=== PATIENT | female | born 2000 | race Caucasian/White ===

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

== ENCOUNTER 2022-01-30 11:46 | Emergency (ER) | payer OTHER ==
--- OUTSIDE RECORDS SUMMARY | 2022-01-30 11:54 | XMS REPORT | Continuity of Care Document ---
:2000 Author Organization [facility] t Address [address] [place] [address] Care Team Providers Name Role Phone MAINE ADAMS Primary Care Physician Unavailable EDWIN CHAPARRO Attending Clinician Unavailable TUSHAR LAN Attending Clinician Unavailable Antonette Solano CNM Attending Clinician Ultrasound, Tk-Mfchelo Attending Clinician Unavailable David Cooper DO Attending Clinician SARA SNYDER Attending Clinician Unavailable SARA SNYDER Attending Clinician Unavailable ANTONETTE SOLANO Attending Clinician Unavailable Provider, Margaretchniya Temp Attending Clinician Unavailable Niki Villa Attending Clinician NIKI RALPH Attending Clinician Unavailable Doctor Unassigned, [place] Attending Clinician Unavailable Tushar Villarreal Attending Clinician JAM SAUNDERS Attending Clinician Unavailable CLINTON CRUMP Attending Clinician Unavailable Ernesto Valente Attending Clinician ERNESTO PEACOCK Attending Clinician Unavailable Visit, [facility] Nurse Attending Clinician Unavailable Jamshid QUINONEZ, Rosio Attending Clinician Maxim ANDRES, Marizol [place] Attending Clinician Dylan Prieto MD Attending Clinician Maria III, AUDIOVISUAL PRODUCTION SPECIALIST, R Attending Clinician Jr ANDRES, Hetal Mario [facility]ending [facility] Attending Clinician Unavailable Jeffery Dumont DO Attending Clinician Zoltan ANDRES, Radha Attending Clinician Antonio Travis MD Attending Clinician Joselyn CASIE, Selam Attending Clinician SELAM ALVES Attending Clinician Unavailable HETAL NORRIS Admitting Clinician Unavailable SARA SNYDER Admitting Clinician Unavailable Maxim ANDRES, Marizol [place] Admitting Clinician Hetal Norris MD Admitting Clinician Payers Payer Name Policy Type Policy Number Effective Date Expiration Date Daniel del angel [facility] [id number] 2019 00:00:00 Problems Condition Condition Condition Status Onset Resolution Last Treating Co mments Source Name Details Category Date Date Treatment Clinician Date History of History of Disease Active 2021-02 U nivers pre-eclamp pre-eclamp 0-27 it [place] 00:[place]: [place] prior prior 00 Medical , , Br anch currently currently Disease Active 2021-02 Uni vers related related 0-27 ity of nausea, nausea, 00:00: [place] antepartum antepartum 00 Nh dical Branch Declines Declines Disease Active 2021-02 Unive rs flu flu 0-27 ity of vaccine vaccine 00:00: [place] 00 Medical Branch History of History of Disease Active 2021-02 U nivers anxiety anxiety 0-27 ity of and and 00:00: [place] depression depression 00 Nh dical Branch Missed Missed Disease Active 2021-02 Univers menses menses 0-13 ity of 00:00: [place] 00 Medical Branch History of History of Disease Active 2021-02 U nivers 0-13 ity of delivery, delivery, 00:00: [place] currently currently 00 Medi lottie Branch Other Other Disease Active Univers general general 8 [place] counseling [place] advice and advice 00 Me dical for for Branch contracept contracept chris chris management management Elevated Elevated Disease Active Unive rs blood blood 09-28 ity of pressure pressure 00:00: [place] reading reading 00 Medical without without Branch diagnosis diagnosis of of hypertensi hypertensi on on Encounter Encounter Disease Active 2020-02 Uni vers for for - ity of surveillan surve[place]an [place] ce of 00 Medical contracept contracept Br anch chris pills chris pills Disease Active Uni vers with with 4-13 ity of inconclusi inconclusi [place] ve ve 00 Medica l viability, viability, Br anch single or single or unspecifie unspecifie d fetus d fetus Asthma Asthma Disease Active 2019-02 Univers during during 0-29 ity of 00:00: [place] taylor 00 Medical Branch Allergies, Adverse Reactions, Alerts Allergy Allergy Status Severity Reaction(s) Onset Inactive Treating Comm ents Source Name Type Date Date Clinician Codeine Drug Active Cough 2019-02 Univers Allergy 0- ity of 00:00: [place] 00 Medical Branch CODEINE DRUG Active COUGH 2019-02 Univers INGREDI 0- ity of 00:00: [place] 00 Medical Branch Predniso Propensi Active Rash Univer s lone ty to 4-07 ity of adverse 00:00: [place] reaction 00 Medical s Branch Penicill Propensi Active Rash Univer s ins ty to 4-07 ity of adverse 00:00: [place] reaction 00 Medical s Branch PENICILL Drug Active Rash Univers INS Class 4-07 ity of 00:00: [place] 00 Medical Branch PREDNISO DRUG Active Rash Univers LONE INGREDI 4-07 ity of 00:00: [place] 00 Medical Branch Penicill Propensi Active Rash Univer s ins ty to 4-07 ity of adverse 00:00: [place] reaction 00 Medical s Branch Social History Social Habit Start Date Stop Date Quantity Comments Source ASSERTION 2021-11-25 University of 00:00:00 [place] [facility] History SDOH University o f Alcohol Std [place] [facility] Drinks Branch History SDOH University o f Alcohol Binge [place] [facility] History SDOH University o f Alcohol Comment [place] [facility] Exposure to 2021-12-13 2021-12-23 Not sure [facility] SARS-CoV-2 00:00:00 09:29:00 [facility] (event) Branch Alcohol intake 2021-12-23 2021-12-23 Ex-drinker [facility] 00:00:00 00:00:00 (finding) [place] [facility] Tobacco use and 2021-09-28 2021-09-28 Smokeless tobacco Un iversity of exposure 00:00:00 00:00:00 non-user [place] [facility] History SDOH 2018-12-20 2018-12-20 1 University o f Alcohol Frequency 00:00:00 00:00:00 [facility] edical [place] Sex Assigned At [birth year] Universit y of 00:00:00 00:00:00 [facility] Smoking Status Start Date Stop Date Source Never smoked tobacco [facility] Medications Ordered Filled Start Stop Current Ordering Indication Dosage Frequency Signature Comments Components Source Medication Medication Date Date Medication? Clinician (SIG) Name Name 2021-02 Yes Take by Univer s 25/iron 0-13 mouth. ity of fum/folic/d 09:26: [place] [id number] Medical (-1 Branch ORAL) 2021-02 Yes Take by Univer s 25/iron 0-13 mouth. ity of fum/folic/d 09:26: [facility] 35 Medical (-1 Branch ORAL) 2021-02 Yes Take by Univer s 25/iron 0-13 mouth. ity of fum/folic/d 09:26: [facility] 35 Medical (-1 Branch ORAL) 2021-02 Yes Take by Univer s 25/iron 0-13 mouth. ity of fum/folic/d 09:26: [facility] 35 Medical (-1 Branch ORAL) 2021-02 Yes Take by Univer s 25/iron 0-13 mouth. ity of fum/folic/d 09:26: [facility] 35 Medical (-1 Branch ORAL) 2021-02 Yes Take by Univer s 25/iron 0-13 mouth. ity of fum/folic/d 09:26: [place] [id number] Medical (-1 Branch ORAL) 2021-02 Yes Take by Univer s 25/iron 0-13 mouth. ity of fum/folic/d 09:26: [place] [id number] Medical (-1 Branch ORAL) 2021-02 Yes Take by Univer s 25/iron 0-13 mouth. ity of fum/folic/d 09:26: [place] [id number] Medical (-1 Branch ORAL) 2021-02 Yes Take by Univer s 25/iron 0-13 mouth. ity of fum/folic/d 09:26: [place] [id number] Medical (-1 Branch ORAL) PROAIR HFA Yes Univers 90 8-30 ity of mcg/actuati 00:00: [place] on inhaler Medical Branch PROAIR HFA Yes Univers 90 8-30 ity of mcg/actuati 00:00: [place] on inhaler Medical Branch PROAIR HFA Yes Univers 90 8-30 ity of mcg/actuati 00:00: [place] on inhaler Medical Branch PROAIR HFA Yes Univers 90 8-30 ity of mcg/actuati 00:00: [place] on inhaler Medical Branch PROAIR HFA Yes Univers 90 8-30 ity of mcg/actuati 00:00: [place] on inhaler Medical Branch PROAIR HFA Yes Univers 90 8-30 ity of mcg/actuati 00:00: [place] on inhaler Medical Branch PROAIR HFA Yes Univers 90 8-30 ity of mcg/actuati 00:00: [place] on inhaler Medical Branch PROAIR HFA Yes Univers 90 8-30 ity of mcg/actuati 00:00: [place] on inhaler 00 Medical Branch PROAIR HFA Yes Univers 90 8-30 ity of mcg/actuati 00:00: [place] on inhaler Medical Branch norgestimat Yes [id number] 1{tbl} Take 1 Univers e-ethinyl 8-16 tablet by ity o f estradioL 00:[place] (TRI-SPRINT 00 the Medical EC) morning. Branch 0.18/0.215/ 0.25 mg-35 mcg (28) tablet norgestimat 2021- No [id number] 1{tbl} Take 1 Univers e-ethinyl 8-16 10-13 tablet by ity of estradioL 00:00: 00:00 mouth in [place] (TRI-SPRINT 00 :00 the Medical EC) morning. Branch 0.18/0.215/ 0.25 mg-35 mcg (28) tablet norgestimat 2020-02 Yes [id number] 1{tbl} Take 1 Univers e-ethinyl 1-22 tablet by ity o f estradioL 00:00: mouth [place] (ORTHO 00 daily. Medical TRI-CYCLEN, Branch 28,) 0.18/0.215/ 0.25 mg-35 mcg (28) tablet norgestimat 2020-02- No [id number] 1{tbl} Take 1 Univers e-ethinyl 1-22 10-13 tablet by ity of estradioL 00:00: 00:00 mouth [place] (ORTHO 00 :00 daily. Medical TRI-CYCLEN, Branch 28,) 0.18/0.215/ 0.25 mg-35 mcg (28) tablet Immunizations Ordered Immunization Filled Immunization Date Status Commen ts Source Name Name TD 2020-06-09 Completed University of 00:00:00 [facility] TDAP 2020-06-09 Completed University of 00:00:00 [facility] TDAP 2020-06-09 Completed University of 00:00:00 [facility] TDAP 2020-06-09 Completed University of 00:00:00 [facility] TDAP 2020-06-09 Completed University of 00:00:00 [facility] TDAP 2020-06-09 Completed University of 00:00:00 [facility] TDAP 2020-06-09 Completed University of 00:00:00 [facility] TDAP 2020-06-09 Completed University of 00:00:00 [facility] TDAP 2020-06-09 Completed University of 00:00:00 [facility] TDAP 2020-06-09 Completed University of 00:00:00 [facility] Influenza Virus 2020-01-21 Completed Universit y of Vaccine Quad .5 mL 00:00:00 [place] [facility] IM 6+ MO Branch Influenza Virus 2020-01-21 Completed Universit y of Vaccine [place] .5 mL 00:00:00 [place] [facility] IM 6+ MO Branch Influenza Virus 2020-01-21 Completed Universit y of Vaccine [place] .5 mL 00:00:00 [place] [facility] IM 6+ MO Branch Influenza Virus 2020-01-21 Completed Universit y of Vaccine [place] .5 mL 00:00:00 [place] [facility] IM 6+ MO Branch Influenza Virus 2020-01-21 Completed Universit y of Vaccine [place] .5 mL 00:00:00 [place] [facility] IM 6+ MO Branch Influenza Virus 2020-01-21 Completed Universit y of Vaccine [place] .5 mL 00:00:00 [place] [facility] IM 6+ MO Branch Influenza Virus 2020-01-21 Completed Universit y of Vaccine [place] .5 mL 00:00:00 [place] [facility] IM 6+ MO Branch Influenza Virus 2020-01-21 Completed Universit y of Vaccine Quad .5 mL 00:00:00 [place] [facility] IM 6+ MO Branch Influenza Virus 2020-01-21 Completed Universit y of Vaccine Quad .5 mL 00:00:00 [place] [facility] 6+ MO Branch Influenza Virus 2020-01-21 Completed Universit y of Vaccine Quad .5 mL 00:00:00 [facility] 6+ MO Branch Meningococcal 2018-10-18 Completed University of Vaccine 00:00:00 [facility] TDAP 2018-10-18 Completed University of 00:00:00 [facility] Meningococcal B, OMV 2018-10-18 Completed Univ ersity of 00:00:00 [facility] Meningococcal 2018-10-18 Completed University of Vaccine 00:00:00 [place] [facility] [place] TDAP 2018-10-18 Completed University of 00:00:00 [facility] Meningococcal B, OMV 2018-10-18 Completed Univ ersity of 00:00:00 [facility] Meningococcal 2018-10-18 Completed University of Vaccine 00:00:00 [place] [facility] TDAP 2018-10-18 Completed University of 00:00:00 [facility] Meningococcal B, OMV 2018-10-18 Completed Univ ersity of 00:00:00 [facility] Meningococcal 2018-10-18 Completed University of Vaccine 00:00:00 [facility] TDAP 2018-10-18 Completed University of 00:00:00 [facility] Meningococcal B, OMV 2018-10-18 Completed Univ ersity of 00:00:00 [facility] Meningococcal 2018-10-18 Completed University of Vaccine 00:00:00 [facility] Branch TDAP 2018-10-18 Completed University of 00:00:00 [facility] Branch Meningococcal B, OMV 2018-10-18 Completed Univ ersity of 00:00:00 [facility] Branch Meningococcal 2018-10-18 Completed University of Vaccine 00:00:00 [facility] Branch TDAP 2018-10-18 Completed University of 00:00:00 [facility] Branch Meningococcal B, OMV 2018-10-18 Completed Univ ersity of 00:00:00 [facility] Meningococcal 2018-10-18 Completed University of Vaccine 00:00:00 [facility] TDAP 2018-10-18 Completed University of 00:00:00 [facility] Meningococcal B, OMV 2018-10-18 Completed Univ ersity of 00:00:00 [facility] Meningococcal 2018-10-18 Completed University of Vaccine 00:00:00 [facility] TDAP 2018-10-18 Completed University of 00:00:00 [facility] Meningococcal B, OMV 2018-10-18 Completed Univ ersity of 00:00:00 [facility] Meningococcal 2018-10-18 Completed University of Vaccine 00:00:00 [facility] TDAP 2018-10-18 Completed University of 00:00:00 [facility] Meningococcal B, OMV 2018-10-18 Completed Univ ersity of 00:00:00 [facility] Meningococcal 2018-10-18 Completed University of Vaccine 00:00:00 [facility] TDAP 2018-10-18 Completed University of 00:00:00 [facility] Meningococcal B, OMV 2018-10-18 Completed Univ ersity of 00:00:00 [facility] DTAP 2006-10-25 Completed University of 00:00:00 [facility] Hepatitis A Adult 2006-10-25 Completed Univers ity of 00:00:00 [facility] Polio (IPV/OPV) 2006-10-25 Completed Universit y of 00:00:00 [facility] DTAP 2006-10-25 Completed University of 00:00:00 [facility] Hepatitis A Adult 2006-10-25 Completed Univers ity of 00:00:00 [facility] Polio (IPV/OPV) 2006-10-25 Completed Universit y of 00:00:00 [place] [facility] DTAP 2006-10-25 Completed University of 00:00:00 [place] [facility] Hepatitis A Adult 2006-10-25 Completed Univers ity of 00:00:00 [place] [facility] Polio (IPV/OPV) 2006-10-25 Completed Universit y of 00:00:00 [place] [facility] DTAP 2006-10-25 Completed University of 00:00:00 [facility] Branch Hepatitis A Adult 2006-10-25 Completed Univers ity of 00:00:00 [place] [facility] Polio (IPV/OPV) 2006-10-25 Completed Universit y of 00:00:00 [place] [facility] DTAP 2006-10-25 Completed University of 00:00:00 [facility] Branch Hepatitis A Adult 2006-10-25 Completed Univers ity of 00:00:00 [place] [facility] Polio (IPV/OPV) 2006-10-25 Completed Universit y of 00:00:00 [facility] Branch DTAP 2006-10-25 Completed University of 00:00:00 [place] [facility] Hepatitis A Adult 2006-10-25 Completed Univers ity of 00:00:00 [place] [facility] Polio (IPV/OPV) 2006-10-25 Completed Universit y of 00:00:00 [facility] Branch DTAP 2006-10-25 Completed University of 00:00:00 [facility] Branch Hepatitis A Adult 2006-10-25 Completed Univers ity of 00:00:00 [place] [facility] Polio (IPV/OPV) 2006-10-25 Completed Universit y of 00:00:00 [place] [facility] DTAP 2006-10-25 Completed University of 00:00:00 [place] [facility] Hepatitis A Adult 2006-10-25 Completed Univers ity of 00:00:00 [place] [facility] Polio (IPV/OPV) 2006-10-25 Completed Universit y of 00:00:00 [place] [facility] DTAP 2006-10-25 Completed University of 00:00:00 [facility] Branch Hepatitis A Adult 2006-10-25 Completed Univers ity of 00:00:00 [place] [facility] Polio (IPV/OPV) 2006-10-25 Completed Universit y of 00:00:00 [place] [facility] DTAP 2006-10-25 Completed University of 00:00:00 [facility] Branch Hepatitis A Adult 2006-10-25 Completed Univers ity of 00:00:00 [facility] Polio (IPV/OPV) 2006-10-25 Completed Universit y of 00:00:00 [facility] DTAP 2005-09-20 Completed University of 00:00:00 [facility] HIB 3 Dose Schedule 2005-09-20 Completed Unive rsity of 00:00:00 [facility] Hepatitis A Adult 2005-09-20 Completed Univers ity of 00:00:00 [facility] Hep B, Adol or Pedi 2005-09-20 Completed Unive rsity of Dosage 00:00:00 [facility] Pneumococcal 13 2005-09-20 Completed Universit y of Conjugate, PCV13 00:00:00 [facility] dical (Prevnar 13) Branch Polio (IPV/OPV) 2005-09-20 Completed Universit y of 00:00:00 [facility] DTAP 2005-09-20 Completed University of 00:00:00 [facility] HIB 3 Dose Schedule 2005-09-20 Completed Unive rsity of 00:00:00 [facility] Hepatitis A Adult 2005-09-20 Completed Univers ity of 00:00:00 [facility] Hep B, Adol or Pedi 2005-09-20 Completed Unive rsity of Dosage 00:00:00 [facility] Pneumococcal 13 2005-09-20 Completed Universit y of Conjugate, PCV13 00:00:00 [facility] dical (Prevnar 13) Branch Polio (IPV/OPV) 2005-09-20 Completed Universit y of 00:00:00 [facility] DTAP 2005-09-20 Completed University of 00:00:00 [facility] HIB 3 Dose Schedule 2005-09-20 Completed Unive rsity of 00:00:00 [facility] Hepatitis A Adult 2005-09-20 Completed Univers ity of 00:00:00 [facility] Hep B, Adol or Pedi 2005-09-20 Completed Unive rsity of Dosage 00:00:00 [facility] Pneumococcal 13 2005-09-20 Completed Universit y of Conjugate, PCV13 00:00:00 [facility] dical (Prevnar 13) Branch Polio (IPV/OPV) 2005-09-20 Completed Universit y of 00:00:00 [facility] DTAP 2005-09-20 Completed University of 00:00:00 [facility] HIB 3 Dose Schedule 2005-09-20 Completed Unive rsity of 00:00:00 [facility] Hepatitis A Adult 2005-09-20 Completed Univers ity of 00:00:00 [facility] Hep B, Adol or Pedi 2005-09-20 Completed Unive rsity of Dosage 00:00:00 [facility] Pneumococcal 13 2005-09-20 Completed Universit y of Conjugate, PCV13 00:00:00 [facility] dical (Prevnar 13) Branch Polio (IPV/OPV) 2005-09-20 Completed Universit y of 00:00:00 [facility] DTAP 2005-09-20 Completed University of 00:00:00 [facility] HIB 3 Dose Schedule 2005-09-20 Completed Unive rsity of 00:00:00 [facility] Hepatitis A Adult 2005-09-20 Completed Univers ity of 00:00:00 [facility] Hep B, Adol or Pedi 2005-09-20 Completed Unive rsity of Dosage 00:00:00 [facility] Pneumococcal 13 2005-09-20 Completed Universit y of Conjugate, PCV13 00:00:00 [facility] dical (Prevnar 13) Branch Polio (IPV/OPV) 2005-09-20 Completed Universit y of 00:00:00 [facility] DTAP 2005-09-20 Completed University of 00:00:00 [facility] HIB 3 Dose Schedule 2005-09-20 Completed Unive rsity of 00:00:00 [facility] Hepatitis A Adult 2005-09-20 Completed Univers ity of 00:00:00 [facility] Hep B, Adol or Pedi 2005-09-20 Completed Unive rsity of Dosage 00:00:00 [facility] Pneumococcal 13 2005-09-20 Completed Universit y of Conjugate, PCV13 00:00:00 [facility] dical (Prevnar 13) Branch Polio (IPV/OPV) 2005-09-20 Completed Universit y of 00:00:00 [facility] DTAP 2005-09-20 Completed University of 00:00:00 [facility] HIB 3 Dose Schedule 2005-09-20 Completed Unive rsity of 00:00:00 [facility] Hepatitis A Adult 2005-09-20 Completed Univers ity of 00:00:00 [facility] Hep B, Adol or Pedi 2005-09-20 Completed Unive rsity of Dosage 00:00:00 [facility] Pneumococcal 13 2005-09-20 Completed Universit y of Conjugate, PCV13 00:00:00 [facility] dical (Prevnar 13) Branch Polio (IPV/OPV) 2005-09-20 Completed Universit y of 00:00:00 [facility] DTAP 2005-09-20 Completed University of 00:00:00 [facility] HIB 3 Dose Schedule 2005-09-20 Completed Unive rsity of 00:00:00 [facility] Hepatitis A Adult 2005-09-20 Completed Univers ity of 00:00:00 [facility] Hep B, Adol or Pedi 2005-09-20 Completed Unive rsity of Dosage 00:00:00 [facility] Pneumococcal 13 2005-09-20 Completed Universit y of Conjugate, PCV13 00:00:00 [facility] dical (Prevnar 13) Branch Polio (IPV/OPV) 2005-09-20 Completed Universit y of 00:00:00 [facility] DTAP 2005-09-20 Completed University of 00:00:00 [facility] HIB 3 Dose Schedule 2005-09-20 Completed Unive rsity of 00:00:00 [facility] Hepatitis A Adult 2005-09-20 Completed Univers ity of 00:00:00 [facility] Hep B, Adol or Pedi 2005-09-20 Completed Unive rsity of Dosage 00:00:00 [facility] Pneumococcal 13 2005-09-20 Completed Universit y of Conjugate, PCV13 00:00:00 [facility] dical (Prevnar 13) Branch Polio (IPV/OPV) 2005-09-20 Completed Universit y of 00:00:00 [facility] DTAP 2005-09-20 Completed University of 00:00:00 [facility] HIB 3 Dose Schedule 2005-09-20 Completed Unive rsity of 00:00:00 [facility] Hepatitis A Adult 2005-09-20 Completed Univers ity of 00:00:00 [facility] Hep B, Adol or Pedi 2005-09-20 Completed Unive rsity of Dosage 00:00:00 [facility] Pneumococcal 13 2005-09-20 Completed Universit y of Conjugate, PCV13 00:00:00 [facility] dical (Prevnar 13) Branch Polio (IPV/OPV) 2005-09-20 Completed Universit y of 00:00:00 [facility] Branch DTAP 2004-07-22 Completed University of 00:00:00 [facility] Hep B, Adol or Pedi 2004-07-22 Completed Unive rsity of Dosage 00:00:00 [facility] MMR 2004-07-22 Completed University of 00:00:00 [facility] Polio (IPV/OPV) 2004-07-22 Completed Universit y of 00:00:00 [facility] Varicella 2004-07-22 Completed University of (varivax)(chicken 00:00:00 [place] [facility] pox) Branch DTAP 2004-07-22 Completed University of 00:00:00 [facility] Hep B, Adol or Pedi 2004-07-22 Completed Unive rsity of Dosage 00:00:00 [facility] MMR 2004-07-22 Completed University of 00:00:00 [facility] Polio (IPV/OPV) 2004-07-22 Completed Universit y of 00:00:00 [facility] Varicella 2004-07-22 Completed University of (varivax)(chicken 00:00:00 [place] [facility] pox) Branch DTAP 2004-07-22 Completed University of 00:00:00 [facility] Hep B, Adol or Pedi 2004-07-22 Completed Unive rsity of Dosage 00:00:00 [facility] MMR 2004-07-22 Completed University of 00:00:00 [facility] Polio (IPV/OPV) 2004-07-22 Completed Universit y of 00:00:00 [facility] Varicella 2004-07-22 Completed University of (varivax)(chicken 00:00:00 [place] [facility] pox) Branch DTAP 2004-07-22 Completed University of 00:00:00 [facility] Hep B, Adol or Pedi 2004-07-22 Completed Unive rsity of Dosage 00:00:00 [facility] MMR 2004-07-22 Completed University of 00:00:00 [facility] Polio (IPV/OPV) 2004-07-22 Completed Universit y of 00:00:00 [facility] Varicella 2004-07-22 Completed University of (varivax)(chicken 00:00:00 [place] [facility]ox[facility] DTAP 2004-07-22 Completed University of 00:00:00 [facility] Hep B, Adol or Pedi 2004-07-22 Completed Unive rsity of Dosage 00:00:00 [facility] MMR 2004-07-22 Completed University of 00:00:00 [facility] Polio (IPV/OPV) 2004-07-22 Completed Universit y of 00:00:00 [facility] Varicella 2004-07-22 Completed University of (varivax)(chicken 00:00:00 [place] [facility]ox[facility] DTAP 2004-07-22 Completed University of 00:00:00 [facility] Hep B, Adol or Pedi 2004-07-22 Completed Unive rsity of Dosage 00:00:00 [facility] MMR 2004-07-22 Completed University of 00:00:00 [facility] Polio (IPV/OPV) 2004-07-22 Completed Universit y of 00:00:00 [facility] Varicella 2004-07-22 Completed University of (varivax)(chicken 00:00:00 [place] [facility]ox[facility] DTAP 2004-07-22 Completed University of 00:00:00 [facility] Hep B, Adol or Pedi 2004-07-22 Completed Unive rsity of Dosage 00:00:00 [facility] MMR 2004-07-22 Completed University of 00:00:00 [facility] Polio (IPV/OPV) 2004-07-22 Completed Universit y of 00:00:00 [facility] Varicella 2004-07-22 Completed University of (varivax)(chicken 00:00:00 [place] [facility]ox[facility] DTAP 2004-07-22 Completed University of 00:00:00 [facility] Hep B, Adol or Pedi 2004-07-22 Completed Unive rsity of Dosage 00:00:00 [facility] MMR 2004-07-22 Completed University of 00:00:00 [facility] Polio (IPV/OPV) 2004-07-22 Completed Universit y of 00:00:00 [facility] Varicella 2004-07-22 Completed University of (varivax)(chicken 00:00:00 [place] [facility]ox[facility] DTAP 2004-07-22 Completed University of 00:00:00 [facility] Hep B, Adol or Pedi 2004-07-22 Completed Unive rsity of Dosage 00:00:00 [facility] MMR 2004-07-22 Completed University of 00:00:00 [facility] Polio (IPV/OPV) 2004-07-22 Completed Universit y of 00:00:00 [facility] Varicella 2004-07-22 Completed University of (varivax)(chicken 00:00:00 [place] [facility] DTAP 2004-07-22 Completed University of 00:00:00 [facility] Hep B, Adol or Pedi 2004-07-22 Completed Unive rsity of Dosage 00:00:00 [facility] MMR 2004-07-22 Completed University of 00:00:00 [facility] Polio (IPV/OPV) 2004-07-22 Completed Universit y of 00:00:00 [facility] Varicella 2004-07-22 Completed University of (varivax)(chicken 00:00:00 [place] [facility]ox[facility] DTAP 2003-06-04 Completed University of 00:00:00 [facility] HIB 3 Dose Schedule 2003-06-04 Completed Unive rsity of 00:00:00 [facility] Hep B, Adol or Pedi 2003-06-04 Completed Unive rsity of Dosage 00:00:00 [facility] MMR 2003-06-04 Completed University of 00:00:00 [facility] Polio (IPV/OPV) 2003-06-04 Completed Universit y of 00:00:00 [facility] Varicella 2003-06-04 Completed University of (varivax)(chicken 00:00:00 [facility] edical pox) Branch DTAP 2003-06-04 Completed University of 00:00:00 [facility] HIB 3 Dose Schedule 2003-06-04 Completed Unive rsity of 00:00:00 [facility] Hep B, Adol or Pedi 2003-06-04 Completed Unive rsity of Dosage 00:00:00 [facility] MMR 2003-06-04 Completed University of 00:00:00 [facility] Polio (IPV/OPV) 2003-06-04 Completed Universit y of 00:00:00 [facility] Varicella 2003-06-04 Completed University of (varivax)(chicken 00:00:00 [place] [facility]ox[facility] DTAP 2003-06-04 Completed University of 00:00:00 [facility] HIB 3 Dose Schedule 2003-06-04 Completed Unive rsity of 00:00:00 [facility] Hep B, Adol or Pedi 2003-06-04 Completed Unive rsity of Dosage 00:00:00 [facility] MMR 2003-06-04 Completed University of 00:00:00 [facility] Polio (IPV/OPV) 2003-06-04 Completed Universit y of 00:00:00 [facility] Varicella 2003-06-04 Completed University of (varivax)(chicken 00:00:00 [place] [facility] DTAP 2003-06-04 Completed University of 00:00:00 [facility] HIB 3 Dose Schedule 2003-06-04 Completed Unive rsity of 00:00:00 [facility] Hep B, Adol or Pedi 2003-06-04 Completed Unive rsity of Dosage 00:00:00 [facility] MMR 2003-06-04 Completed University of 00:00:00 [facility] Polio (IPV/OPV) 2003-06-04 Completed Universit y of 00:00:00 [facility] Varicella 2003-06-04 Completed University of (varivax)(chicken 00:00:00 [place] [facility]ox[facility] DTAP 2003-06-04 Completed University of 00:00:00 [facility] HIB 3 Dose Schedule 2003-06-04 Completed Unive rsity of 00:00:00 [facility] Hep B, Adol or Pedi 2003-06-04 Completed Unive rsity of Dosage 00:00:00 [facility] MMR 2003-06-04 Completed University of 00:00:00 [facility] Polio (IPV/OPV) 2003-06-04 Completed Universit y of 00:00:00 [facility] Varicella 2003-06-04 Completed University of (varivax)(chicken 00:00:00 [place] [facility]ox[facility] DTAP 2003-06-04 Completed University of 00:00:00 [facility] HIB 3 Dose Schedule 2003-06-04 Completed Unive rsity of 00:00:00 [facility] Hep B, Adol or Pedi 2003-06-04 Completed Unive rsity of Dosage 00:00:00 [facility] MMR 2003-06-04 Completed University of 00:00:00 [facility] Polio (IPV/OPV) 2003-06-04 Completed Universit y of 00:00:00 [facility] Varicella 2003-06-04 Completed University of (varivax)(chicken 00:00:00 [place] [facility] DTAP 2003-06-04 Completed University of 00:00:00 [facility] HIB 3 Dose Schedule 2003-06-04 Completed Unive rsity of 00:00:00 [facility] Hep B, Adol or Pedi 2003-06-04 Completed Unive rsity of Dosage 00:00:00 [facility] MMR 2003-06-04 Completed University of 00:00:00 [facility] Polio (IPV/OPV) 2003-06-04 Completed Universit y of 00:00:00 [facility] Varicella 2003-06-04 Completed University of (varivax)(chicken 00:00:00 [place] [facility]ox[facility] DTAP 2003-06-04 Completed University of 00:00:00 [facility] HIB 3 Dose Schedule 2003-06-04 Completed Unive rsity of 00:00:00 [facility] Hep B, Adol or Pedi 2003-06-04 Completed Unive rsity of Dosage 00:00:00 [facility] MMR 2003-06-04 Completed University of 00:00:00 [facility] Polio (IPV/OPV) 2003-06-04 Completed Universit y of 00:00:00 [facility] Varicella 2003-06-04 Completed University of (varivax)(chicken 00:00:00 [place] [facility]ox[facility] DTAP 2003-06-04 Completed University of 00:00:00 [facility] HIB 3 Dose Schedule 2003-06-04 Completed Unive rsity of 00:00:00 [facility] Hep B, Adol or Pedi 2003-06-04 Completed Unive rsity of Dosage 00:00:00 [facility] MMR 2003-06-04 Completed University of 00:00:00 [facility] Polio (IPV/OPV) 2003-06-04 Completed Universit y of 00:00:00 [facility] Varicella 2003-06-04 Completed University of (varivax)(chicken 00:00:00 [place] [facility] pox[facility] DTAP 2003-06-04 Completed University of 00:00:00 [facility] HIB 3 Dose Schedule 2003-06-04 Completed Unive rsity of 00:00:00 [facility] Hep B, Adol or Pedi 2003-06-04 Completed Unive rsity of Dosage 00:00:00 [facility] MMR 2003-06-04 Completed University of 00:00:00 [facility] Polio (IPV/OPV) 2003-06-04 Completed Universit y of 00:00:00 [facility] Varicella 2003-06-04 Completed University of (varivax)(chicken 00:00:00 [place] [facility]ox[facility] Vital Signs Vital Name Observation Time Observation Value Comments Source Systolic blood 2021-12-23 14:24:00 118 mm[Hg] Univer sity of pressure [facility] Diastolic blood 2021-12-23 14:24:00 77 mm[Hg] Unive rsity of pressure [facility] Heart rate 2021-12-23 14:24:00 87 /min Universi ty of [facility] Body temperature 2021-12-23 14:24:00 37 Nabila Univ ersity of [facility] Respiratory rate 2021-12-23 14:24:00 18 /min Univ ersity of [facility] Body height 2021-12-23 14:24:00 167.6 cm Universi ty of [place] [facility] Body weight 2021-12-23 14:24:00 70.761 kg Universi ty of [place] [facility] BMI 2021-12-23 14:24:00 25.18 kg/m2 Universi ty of [place] [facility] Systolic blood 2021-12-09 14:24:00 118 mm[Hg] Univer sity of pressure [facility] Diastolic blood 2021-12-09 14:24:00 79 mm[Hg] Unive rsity of pressure [facility] Heart rate 2021-12-09 14:24:00 88 /min Universi ty of [facility] Body temperature 2021-12-09 14:24:00 36.67 Nabila Univ ersity of [facility] Respiratory rate 2021-12-09 14:24:00 16 /min Univ ersity of [facility] Body height 2021-12-09 14:24:00 167.6 cm [facility] Body weight 2021-12-09 14:24:00 72.53 kg [facility]i [facility] of [facility] BMI 2021-12-09 14:24:00 25.81 kg/m2 [facility] ty [facility] Oxygen saturation in 2021-12-09 14:24:00 97 /min [facility] Arterial blood by [facility] Pulse oximetry Branch Systolic blood 2021-10-12 18:17:00 124 mm[Hg] Univer sity of pressure [facility] Diastolic blood 2021-10-12 18:17:00 90 mm[Hg] Unive rsity of [facility] Heart rate 2021-10-12 18:17:00 112 /min [facility] Body temperature 2021-10-12 18:17:00 37.11 Nabila [facility] Respiratory rate 2021-10-12 18:17:00 20 /min [facility] Body height 2021-10-12 18:17:00 167.6 cm [facility] Body weight 2021-10-12 18:17:00 68.04 kg [facility] BMI 2021-10-12 18:17:00 24.21 kg/m2 [facility] Procedures Procedure Date / Time Performing Clinician Source Performed REPORT OF 2021-12-23 05:01:00 [facility] 2021-12-23 00:00:00 Antonette Solano [facility] POCT URINALYSIS W/O 2021-12-23 00:00:00 Antonette Solano [facility] SPECIFIC GRAVITY [facility] US FIRST 2021-12-14 21:24:20 Sara Snyder [facility] TRIMESTER LESS THAN 14 [facility] WEEKS WITH TRANSVAGINAL ASSIGNMENT OF BENEFITS 2021-12-14 19:54:43 Doctor Unassigned, No [facility] POCT TEST 2021-12-09 00:00:00 Sara Snyder [facility] POCT TEST 2021-10-12 18:22:00 Tushar Lan [facility] Encounters Start End Encounter Admission Attending Care Care Encounter Source Date/Time Date/Time Type Type Clinicians Facility Department ID 2020-12-27 Emergency [facility] [id number] [facility] 22:10:58 ity of [facility] 2020-12-27 Emergency [facility] [id number] Univers 22:10:57 ity [facility] 2020-12-27 Outpatient P [facility] ELIAZAR [id number] Univers 19:19:43 ity [facility] 2020-12-27 Outpatient P [facility] ELIAZAR [id number] Univers 19:19:36 ity [facility] 2022-02-10 2022-02-10 Outpatient R [facility] [id number] Univers 13:15:00 13:15:00 ity [facility] 2022-01-27 2022-01-27 Outpatient R SHANKAR [facility] [id number] Univers 09:00:00 10:00:[address] [facility] 2022-01-10 2022-01-10 [facility] [id number] Univers 00:00:00 00:00:00 Management Antonette Millard HAND WEAVER 350.1.13.10 ity [facility] [id number] Jamal as MATERNAL [phone] Med ical & CHILD 107 [facility] 2022-01-06 2022-01-06 Maid Housekeeper [facility] 1.2 .840.114 [id number] Univers 15:15:00 15:45:00 Visit David Cooper HAND WEAVER [facility].13.10 [facility] [id number] Jamal as MATERNAL [id number] Med ical & CHILD 369 [facility] 2022-01-06 2022-01-06 Outpatient P BALBIR [facility] [id number] Univers 15:15:00 15:15:[address] [facility] 2021-12-30 2021-12-30 Outpatient R SARA SNYDER [facility] B [id number] Univers 10:00:00 10:00:[address] [facility] 2021-12-23 2021-12-23 Outpatient R ENE [facility] [id number] Univers 09:15:00 10:41:[address] [facility] 2021-12-23 2021-12-23 Initial Provider, [facility] .2.840.114 [id number] Univers 09:15:00 10:41:00 Niki Ralph Angelica HAND WEAVER 350.1.13.1 0 ity of Visit Antonette Solano [facility] 4.2.7.2.686 [place] MATERNAL [id number] Med ical & CHILD 107 [facility] 2021-12-23 2021-12-23 Orders Doctor MOSHE 1.2.840.114 [id number] Univers 00:00:00 00:00:00 Only Unassigned, TEDDY 350.1.13.10 ity of [place] [facility] 4.2.7.2.686 Jamal as [id number] [facility] [address] [place] 2021-12-17 2021-12-[address] [facility] 1.2.840.114 [id number] Univers 00:00:00 00:00:00 Management Sara DONALDSON 350.1.13.10 ity of WOMEN'S 4.2.7.2.686 [facility] [phone] [facility] 134 Branch 2021-12-14 2021-12-14 Outpatient R SARA SNYDER [facility] B [id number] Univers 14:55:04 23:59:00 [facility] 2021-12-14 2021-12-14 [facility] 1.2.840.114 [id number] Univers 14:55:04 23:59:00 Encounter Sara ED[place] 350.1.13.10 ity of [place] 4.2.7.2.686 [facility] [id number] [facility] [address] [place] 2021-12-14 2021-12-14 Orders Doctor MESA 1.2.840.114 [id number] Univers 00:00:00 00:00:00 Only Unassigned, TEDDY 350.1.13.10 ity of [place] [facility] 4.2.7.2.686 Jamal as [id number] [facility] [address] [place] 2021-12-09 2021-12-09 Outpatient R SARA SNYDER [facility] B [id number] Univers 09:00:00 09:43:20 TRISARA AGUILA ity of [facility] 2021-12-09 2021-12-09 Initial Tiffani [facility] PRACHI 1.2.840.114 [id number] Univers 09:00:00 09:43:20 Sara DONALDSON 350.1.13.10 i ty of Visit [place]2.7.2.686 [place] [facility] [id number] [facility] 134 Branch 2021-10-12 2021-10-12 Office [facility] [id number] Univers 13:00:00 13:34:47 Visit Tushar Lund HAND WEAVER 350.1.13.10 ity of [facility] 4.2.7.2.686 Jamal as MATERNAL [id number] [facility] ical & CHILD [address] [place] [address] 2021-10-12 2021-10-12 Outpatient R AKINSIPE, [facility] [id number] Univers 13:00:00 13:34:47 TUSHAR rizo o [facility] 2021-10-12 2021-10-12 Outpatient R AKINSIPE, [facility] [id number] Univers 13:00:00 13:00:00 TUSHAR rizo o [facility] 2021-10-12 2021-10-12 Outpatient R AKINSIPE, [facility] [id number] Univers 13:00:00 13:00:00 TUSHAR rizo o [facility] 2021-10-12 2021-10-12 Orders Doctor MESA 1.2.840.114 [id number] Univers 00:00:00 00:00:00 Only Unassigned, TEDDY 350.1.13.10 ity of [place] [facility] 4.2.7.2.686 Jamal as [id number] [facility] 009 Branch 2021-09-28 2021-09-28 Outpatient R AKINSIPE, [facility] [id number] Univers 12:45:00 14:31:13 TUSHAR katz [facility] 2021-09-28 2021-09-28 Office [facility] [id number] Univers 12:45:00 14:31:13 Visit Tushar Lund HAND WEAVER 350.1.13.10 ity of [facility] 4.2.7.2.686 Jamal as MATERNAL [id number] [facility] & CHILD [address] [place] [address] 2021-08-05 2021-08-05 Outpatient R JAM SAUNDERS [facility] [id number] Univers 16:15:00 16:15:00 ity [facility] 2021-06-18 2021-06-18 Outpatient R THERON [facility] [id number] Univers 11:00:00 11:00:00 [place] ity [facility] 2021-06-15 2021-06-15 Orders Doctor MOSHE 1.2.840.114 [id number] Univers 00:00:00 00:00:00 Only Unassigned, TEDDY 350.1.13.10 ity of [place] [address]..2.686 Jamal as [id number] [address] 2021-03-09 2021-03-09 Outpatient R RIKY [facility] [id number] Univers 14:00:00 14:00:00 TUSHAR rizo o f [facility] 2021-03-02 2021-03-02 Telephone [facility] 1.2.840.114 [id number] Univers 00:00:00 00:00:00 Tushar Lund HAND WEAVER 350.1.13.10 ity of [facility] 4.2.7.2.686 Jamal as MATERNAL [id number] [facility] & CHILD [address] [place] [address] 2021-02-12 2021-02-12 [facility] 1.2.969.564 [id number] Univers 00:00:00 00:00:00 Ernesto Rosario HAND WEAVER 350.1.13.10 it y of [facility] 4.2.7.2.686 Jamal as MATERNAL [id number] [facility] & [address] 2021-02-11 2021-02-11 [facility] 1.2.511.516 [id number] Univers 00:00:00 00:00:00 Tushar Lund HAND WEAVER 350.1.13.10 ity of [facility] 4.2.7.2.686 Jamal as MATERNAL [phone] [facility] & CHILD [address] [place] [address] 2021-01-27 2021-01-27 Refjarocho [facility]PRES[facility] [id number] Univers 00:00:00 00:00:00 Ernesto Rosario HAND WEAVER 350.1.13.10 it y of REGIONAL 4.2.7.2.686 Jamal as MATERNAL [id number] [facility] & CHILD [address] [place] [address] 2021-01-18 2021-01-18 [facility] [id number] Univers 16:00:00 16:18:34 ERNESTO rizo [facility] 2021-01-18 2021-01-18 Office [facility] [id number] Univers 15:59:18 16:18:34 Visit Ernesto Rosario HAND WEAVER 350.1.13.10 it y of [facility] 4.2.7.2.686 Jamal as MATERNAL [id number] [facility] & CHILD [address] [place] [address] 2021-01-18 2021-01-18 Outpatient Angel[facility] [id number] Univers 16:00:00 16:00:00 ERNESTO rizo [facility] 2021-01-15 2021-01-15 Outpatient [facility] [id number] Univers 13:15:00 13:15:00 ERNESTO rizo [facility] 2020-12-11 2020-12-11 Telephone [facility] 1.2.840.114 [id number] Univers 00:00:00 00:00:00 Tushar Lund HAND WEAVER 350.1.13.10 ity of [facility] 4.2.7.2.686 Jamal as MATERNAL [id number] [facility] & CHILD [address] [place] [address] 2020-10-20 2020-10-20 Office [facility] 1.2.840.114 [id number] Univers 13:30:06 14:12:47 Visit Niki Dominguez HAND WEAVER 350.1.13.10 ity of [facility] 4.2.7.2.686 Jamal as MATERNAL [id number] [facility] & CHILD [address] [place] [address] 2020-10-20 2020-10-20 Outpatient R RAMO [facility] [id number] Univers 13:30:00 13:30:00 NIKI rizo o xin [facility] 2020-10-14 2020-10-14 Outpatient R RIKY, [facility] [id number] Univers 15:00:00 15:00:00 TUSHAR rizo o xin [facility] 2020-10-12 2020-10-12 Office [facility] [id number] Univers 14:17:44 15:03:31 Visit Tushar Lund HAND WEAVER 350.1.13.10 ity of [facility] 4.2.7.2.686 Jamal as MATERNAL [id number] [address] 2020-10-12 2020-10-12 Outpatient R RIKY, [facility] [id number] Univers 14:30:00 14:30:00 TUSHAR lauren [facility] 2020-09-28 2020-09-28 [facility] [id number] Univers 08:30:00 08:30:00 TUSHAR rizo o [facility] 2020-09-28 2020-09-28 Telephone [facility] 1.2.840.114 [id number] Univers 00:00:00 00:00:00 Ernesto Rosario HAND WEAVER 350.1.13.10 it y of [facility] 4.2.7.2.686 Jamal as MATERNAL [id number] [facility] & CHILD [address] [place] [address] 2020-09-25 2020-09-25 Telephone [facility]johnathanPRES[facility] 1.2.840.114 [id number] Univers 00:00:00 00:00:00 Tushar Lund HAND WEAVER 350.1.13.10 ity of [facility] 4.2.7.2.686 Jamal as MATERNAL [id number] [facility] & CHILD [address] [place] [address] 2020-09-24 2020-09-24 Office [facility] [id number] Univers 14:14:05 14:29:05 Visit Tushar Lund HAND WEAVER 350.1.13.10 ity of REGIONAL 4.2.7.2.686 Jamal as MATERNAL [id number] [address] 2020-09-24 2020-09-24 Outpatient R RIKY [facility] [id number] Univers 14:15:00 14:15:00 TUSHAR katz xin [facility] 2020-09-08 2020-09-08 Outpatient [facility] [id number] Univers 16:00:00 16:00:00 ERNESTO spenser [facility] 2020-08-18 2020-08-18 Routine [facility] [id number] Univers 13:04:51 13:45:53 Tushar Lund HAND WEAVER 350.1.13.10 ity of Visit REGIONAL 4.2.7.2.686 Jamal as MATERNAL [id number] [address] 2020-08-18 2020-08-18 Outpatient R RIKY [facility] [id number] Univers 13:15:00 13:15:00 TUSHAR katz xin [facility] 2020-08-06 2020-08-06 Outpatient Angelica PEACOCK [facility] [id number] Univers 11:00:00 11:00:00 ERNESTOEMILY rizo [facility] 2020-08-06 2020-08-06 Nurse Visit, Ang-Rmchp Nurse [facility] 1.2 .840.114 [id number] Univers 08:21:04 09:08:19 Visit BrynAshlyn bryantjered Lund HAND WEAVER 350.1.13. 10 ity of REG[facility]AL 4.2.7.2.686 Jamal as MATERNAL [id number] [address] 2020-08-06 2020-08-06 Outpatient R RIKY [facility] [id number] Univers 09:00:00 09:00:00 TUSHAR katz xin [facility] 2020-08-04 2020-08-04 Carm[facility] 1.2.840.114 [id number] Univers 00:00:00 00:00:00 Ernesto N HAND WEAVER 350.1.13.10 it y of [facility] 4.2.7.2.686 Jamal as MATERNAL [phone] Med ical & CHILD 107 [facility] 2020-08-01 2020-08-01 1.2.840.1 1.2.840.114 [id number] Univers 00:00:00 00:00:00 Encounter 82632.1.1 350.1.13.10 ity of 3.104.2.7 [place].696 [place] .[id number] 570 [facility] 2020-07-26 2020-07-28 [facility] Rosio Breen [facility] 1.2.840.11 [id number] Univers 14:30:00 17:45:00 Encounter Marizol Pan 350.1.13.10 ity of [place] 4.2.7.2.686 [facility] [id number] [address] 2020-07-27 2020-07-27 Anesthesia Ida [facility] 1.2.840.114 [id number] Univers 10:49:00 16:19:00 Event Dylan Recinos 350.1.13.10 ity of [place] 4.2.7.2.686 [facility] [id number] [address] 2020-07-26 2020-07-26 Anesthesia Maria [facility] 1.2.840.114 [id number] Univers 19:50:09 19:50:09 Event Angelica Recinos 350.1.13.10 i ty of [place] 4.2.7.2.686 [facility] [id number] [address] 2020-07-21 2020-07-21 [facility]ine [facility] 1.2.869.218 [id number] Univers 12:46:13 13:17:55 Ernesto N HAND WEAVER 350.1.13.10 i ty of Visit REGIONAL 4.2.7.2.686 Jamal as MATERNAL [id number] Med ical & CHILD [address] [place] [address] 2020-07-21 2020-07-21 Outpatient Angelica PEACOCK [facility] [id number] Univers 12:45:00 12:45:00 ERNESTO spenser [facility] 2020-07-12 2020-07-12 [facility] 1.2.840.114 [id number] Univers 02:00:00 03:20:00 Encounter Hetaleliseo Recinos 350.1.13.10 ity [facility] 4.2.7.2.686 [facility] [phone] [address] 2020-07-07 2020-07-07 Routine [facility] 1.2.446.190 [id number] Univers 10:39:36 11:15:55 Ernesto N HAND WEAVER 350.1.13.10 i ty of Visit [facility] 4.2.7.2.686 Jamal as MATERNAL [id number] [address] 2020-07-07 2020-07-07 Outpatient [facility] [id number] Univers 10:45:00 10:45:[address] [facility] 2020-06-26 2020-06-26 Telephone [facility] 1.2.840.114 [id number] Univers 00:00:00 00:00:00 Tushar Lund HAND WEAVER 350.1.13.10 ity of [facility] 4.2.7.2.686 Jamal as MATERNAL [id number] [address] 2020-06-23 2020-06-23 Routine [facility] 1.2.449.172 [id number] Univers 14:10:30 14:38:56 Ernesto N HAND WEAVER 350.1.13.10 i ty of Visit [facility] 4.2.7.2.686 Jamal as MATERNAL [id number] [address] 2020-06-23 2020-06-23 Outpatient Angelica [facility] [id number] Univers 14:15:00 14:15:00 ERNESTO spenser [facility] 2020-06-11 2020-06-11 Orders Doctor MOSHE 1.2.840.114 [id number] Univers 00:00:00 00:00:00 Only Unassigned, TEDDY 350.1.13.10 ity of [place] [facility] 4.2.7.2.686 Jamal as [id number] [address] 2020-06-09 2020-06-09 Routine Krystle Ralphgeorgiana Dominguez [facility] 1.2.840 .114 [id number] Univers 14:16:51 14:55:17 Ernesto Peacock HAND WEAVER 350.1.13.10 ity of Visit REGIONAL 4.2.7.2.686 Jamal as MATERNAL [id number] [facility] & CHILD [address] [place] [address] 2020-06-09 2020-06-09 Outpatient R MADONNA [facility] [id number] [facility] 14:15:00 14:15:00 ERNESTO rizo [facility] 2020-06-02 2020-06-02 Orders Doctor MOSHE 1.2.840.114 [id number] Univers 00:00:00 00:00:00 Only Unassigned, TEDDY 350.1.13.10 ity of [place] [facility] 4.2.7.2.686 Jamal as [id number] [address] 2020-06-01 2020-06-01 Refjarocho LanPRES[facility] 1.2.137.861 [id number] Univers 00:00:00 00:00:00 Tushar Lund HAND WEAVER 350.1.13.10 ity of REGIONAL 4.2.7.2.686 Jamal as MATERNAL [phone] [facility] ical & CHILD [address] [place] [address] 2020-05-21 2020-05-21 Maid Housekeeper Lab, Ang-Rmchp [facility] 1.2.840. 114 [id number] Univers 12:58:26 13:13:26 Visit Tushar Lan HAND WEAVER 350.1.13. 10 ity of REGIONAL 4.2.7.2.686 Jamal as MATERNAL [id number] [facility] & CHILD [address] [place] [address] 2020-05-21 2020-05-21 Outpatient R RIKY [facility] [id number] Univers 13:00:00 13:00:00 TUSHAR rizo o f [facility] 2020-05-19 2020-05-19 Routine [facility] 1.2.954.405 [id number] Univers 12:45:26 13:11:32 Ernesto Rosario HAND WEAVER 350.1.13.10 i ty of Visit REGIONAL 4.2.7.2.686 Jamal as MATERNAL [id number] [facility] & CHILD [address] [place] [address] 2020-05-19 2020-05-19 Outpatient Angel[facility] [id number] Univers 12:45:00 12:45:00 ERNESTO rizo [facility] 2020-05-19 2020-05-19 Patient Tim [facility] 1.2.840.114 [id number] Univers 00:00:00 00:00:00 Outreach [facility] 350.1.13.10 i ty of [facility] 4.2.7.2.686 Jamalgeorgiana SALAZAR [phone] [address] 2020-04-23 2020-04-23 Routine [facility] 1.2.474.666 [id number] Univers 15:54:18 16:11:16 Ernesto Rosario HAND WEAVER 350.1.13.10 i ty of Visit [facility] 4.2.7.2.686 Jamal as MATERNAL [id number] [facility] & CHILD [address] [place] [address] 2020-04-23 2020-04-23 Outpatient Angelica PEACOCK [facility] [id number] Univers 16:00:00 16:00:00 ERNESTO rizo [facility] 2020-04-14 2020-04-14 Outpatient Angelica [facility] [id number] Univers 12:45:00 12:45:00 ERNESTO rizo [facility] 2020-04-09 2020-04-09 Maid Housekeeper Ultrasound, [place] [facility] 1.2 .840.114 [id number] Univers 13:55:54 14:54:41 Visit Radha Charlton HAND WEAVER 350.1.13.10 ity of [place]ION[place] 4.2.7.2.686 Jamal as MATERNAL [id number] Med ical & CHILD 369 [facility] 2020-04-09 2020-04-09 Outpatient P [facility] [id number] Univers 14:00:00 14:00:00 ity of [facility] 2020-04-07 2020-04-07 Telephone Madonna KSSOLE 1.2.840.114 [id number] Univers 00:00:00 00:00:00 Ernesto N HAND WEAVER 350.1.13.10 it y of REGIONAL 4.2.7.2.686 Jamal as MATERNAL [id number] [facility] & CHILD [address] [place] [address] 2020-03-26 2020-03-26 Orders Doctor MOSHE 1.2.840.114 [id number] Univers 00:00:00 00:00:00 Only Unassigned, TEDDY 350.1.13.10 ity of [place] [facility] 4.2.7.2.686 Jamal as [id number] [address] 2020-03-17 2020-03-17 Routine [facility] 1.2.224.793 [id number] Univers 12:49:30 13:34:04 Ernesto Rosario HAND WEAVER 350.1.13.10 i ty of Visit REGIONAL 4.2.7.2.686 Jamal as MATERNAL [phone] [facility] & [address] 2020-03-17 2020-03-17 Outpatient R MADONNA [facility] [id number] Univers 13:00:00 13:00:00 ERNESTO rizo [facility] 2020-02-25 2020-02-25 Telephone MadonnaLEVERETT, UTSOLE 1.2.840.114 [id number] Univers 00:00:00 00:00:00 Ernesto Rosario HAND WEAVER 350.1.13.10 it y of REGIONAL 4.2.7.2.686 Jamal as MATERNAL [id number] [address] 2020-02-18 2020-02-18 Outpatient [facility] [id number] Univers 14:45:00 14:45:00 ERNESTO rizo [facility] 2020-02-18 2020-02-18 Routine [facility] 1.2.563.918 [id number] Univers 14:09:04 14:39:35 Ernesto N HAND WEAVER 350.1.13.10 i ty of Visit REGIONAL 4.2.7.2.686 Jamal as MATERNAL [id number] [facility] ical & CHILD [address] [place] [address] 2020-02-03 2020-02-03 Telephone [facility] 1.2.840.114 [id number] Univers 00:00:00 00:00:00 Tushar Lund HAND WEAVER 350.1.13.10 ity of [place] [address]..7.2.686 Jamal as MATERNAL [phone] [facility] ical & CHILD [address] [place] [address] 2020-02-03 2020-02-03 Refill Doctor [facility] 1.2.840.114 [id number] Univers 00:00:00 00:00:00 Unassigned, HAND WEAVER 350.1.13.10 ity of [place] [address].7.2.686 Jamal as MATERNAL [id number] [facility] & CHILD [address] [place] [address] 2020-01-21 2020-01-21 Routine [facility] 1.2.879.550 [id number] Univers 15:20:02 16:02:58 Ernesto N HAND WEAVER 350.1.13.10 i ty of Visit [facility] 4..7.2.686 Jamal as MATERNAL [id number] [facility] & CHILD [address] [place] [address] 2020-01-21 2020-01-21 Outpatient [facility] [id number] Univers 15:30:00 15:30:00 ERNESTO rizo of [facility] 2020-01-18 2020-01-18 Refill Doctor [facility] 1.2.840.114 [id number] Univers 00:00:00 00:00:00 Unassigned, HAND WEAVER 350.1.13.10 ity of [place] [address].7.2.686 Jamal as MATERNAL [phone] [facility] & CHILD [address] [place] [address] 2020-01-09 2020-01-09 Maid Housekeeper Ultrasound, Leonardo [facility] 1.2 .840.114 [id number] Univers 14:52:31 15:17:04 Visit Antonio Travis HAND WEAVER 350.1.13.10 ity of [facility] 4.2.7.2.686 Jamal as MATERNAL [id number] [facility] ical & CHILD 369 [facility] 2020-01-09 2020-01-09 Outpatient P [facility] [id number] Univers 14:45:00 14:45:00 ity [facility] 2020-01-09 2020-01-09 Abstract [facility] 1.2.840.114 [id number] Univers 00:00:00 00:00:00 Ernesto Rosario HAND WEAVER 350.1.13.10 it y of [facility] 4.2.7.2.686 Jamal as MATERNAL [id number] [facility] ical & CHILD [address] [place] [address] 2019-12-27 2019-12-27 Telephone BrynjohnathanPRES[facility]TER[facility] 1.2.840.114 [id number] Univers 00:00:00 00:00:00 Tushar Lund HAND WEAVER 350.1.13.10 ity of [facility] 4.2.7.2.686 Jamal as MATERNAL [id number] [facility] & CHILD [address] [place] [address] 2019-12-26 2019-12-26 Initial [facility] 1.2.758.068 [id number] Univers 13:39:00 15:06:17 Ernesto Rosario HAND WEAVER 350.1.13.10 i ty of Visit [facility] 4.2.7.2.686 Jamal as MATERNAL [id number] [facility] & CHILD [address] [place] [address] 2019-12-26 2019-12-26 Outpatient R MADONNA [facility] [id number] Univers 13:45:00 13:45:00 ERNESTO rizo [facility] 2019-12-26 2019-12-26 Orders Doctor MESA 1.2.840.114 [id number] Univers 00:00:00 00:00:00 Only Unassigned, TEDDY 350.1.13.10 ity of [place] [facility] 4.2.7.2.686 Jamal as [phone] [address] 2019-12-09 2019-12-09 Outpatient [facility] [id number] Univers 13:15:00 13:15:00 TUSHAR lauren [facility] 2019-10-28 2019-10-28 Telephone [facility] 1.2.840.114 [id number] Univers 00:00:00 00:00:00 Tushar C HAND WEAVER 350.1.13.10 ity of REGIONAL 4.2.7.2.686 Jamal as MATERNAL [id number] [facility] & CHILD [address] [place] [address] 2019-10-28 2019-10-28 Telephone [facility] 1.2.840.114 [id number] 00:00:00 00:00:00 Tushar C HAND WEAVER 350.1.13.10 REGIONAL 4.2.7.2.686 MATERNAL [id number] & CHILD [address] [place] [address] 2019-10-09 2019-10-09 Office Akinpe, [facility] 1.2.690.873 [id number] [facility] 08:16:20 08:48:41 Visit Tushar C HAND WEAVER 350.1.13.10 ity of REGIONAL 4.2.7.2.686 Jamal as MATERNAL [id number] [facility] & CHILD [address] [place] [address] 2019-10-09 2019-10-09 Office Akinalleghany health, [facility] 1.2.150.056 [id number] 08:16:20 08:48:41 Visit Tushar C HAND WEAVER 350.1.13.10 REGIONAL 4.2.7.2.686 MATERNAL [id number] & CHILD [address] [place] [address] 2019-10-09 2019-10-09 Outpatient R AKINSIPE, [facility] [id number] Univers 08:15:00 08:15:00 TUSHAR ity o f [facility] 2019-10-07 2019-10-07 Outpatient R AKINSIPE, [facility] [id number] Univers 10:30:00 10:30:00 TUSHAR ity o f [facility] 2019-09-27 2019-09-27 Telephone [facility] 1.2.840.114 [id number] Univers 00:00:00 00:00:00 Tushar C HAND WEAVER 350.1.13.10 ity of REGIONAL 4.2.7.2.686 Jamal as MATERNAL [id number] [facility] & CHILD [address] [place] [address] 2019-09-25 2019-09-25 Refill [facility] 1.2.314.198 [id number] Univers 00:00:00 00:00:00 Tushar C HAND WEAVER 350.1.13.10 ity of REGIONAL 4.2.7.2.686 Jamal as MATERNAL [id number] Med ical & CHILD 107 [facility] 2019-08-19 2019-08-19 Telephone [facility] 1.2.840.114 [id number] Univers 00:00:00 00:00:00 Tushar C HAND WEAVER 350.1.13.10 ity of [place]ION[place] 4.2.7.2.686 Jamal as MATERNAL [id number] Med ical & CHILD [address] [place] [address] 2019-08-16 2019-08-16 Case [facility] 1.2.095.837 [id number] Univers 00:00:00 00:00:00 Management Selam HAND WEAVER 350.1.13.10 ity of [place]IONAL 4.2.7.2.686 Jamal as MATERNAL [id number] Med ical & CHILD 111 [facility] 2019-08-15 2019-08-15 Office Provider, [facility] 1 .2.840.114 [id number] Univers 10:43:37 11:14:30 Visit Selam Alves HAND WEAVER 350.1.13.10 ity of REGIONAL 4.2.7.2.686 Jamal as MATERNAL [id number] Med ical & CHILD 107 [facility] 2019-08-15 2019-08-15 Outpatient R JOSELYN [facility] [id number] Univers 10:45:00 10:45:00 SELAM lauren [facility] 2019-07-23 2019-07-23 Telephone [facility] 1.2.840.114 [id number] Univers 00:00:00 00:00:00 Tushar C HAND WEAVER 350.1.13.10 ity of [place]ION[place] 4.2.7.2.686 Jamal as MATERNAL [id number] Med ical & CHILD 107 [facility] 2019-07-19 2019-07-19 Orders Doctor MOSHE 1.2.840.114 [id number] Univers 00:00:00 00:00:00 Only Unassigned, TEDDY 350.1.13.10 ity of [place] [facility] 4.2.7.2.686 Jamal as [id number] [address] 2019-07-08 2019-07-08 Telemedici [facility] 1.2.840.114 [id number] Univers 07:39:54 09:35:12 ne Visit Tushar C HAND WEAVER 350.1.13.10 ity of [facility] 4.2.7.2.686 Jamal as MATERNAL [id number] [facility] ical & CHILD [address] [place] [address] 2019-07-08 2019-07-08 Outpatient R RIKY [facility] [id number] [facility] 09:30:00 09:30:00 TUSHAR rizo o f [facility] 2019-07-05 2019-07-05 Telephone [facility] 1.2.840.114 [id number] Univers 00:00:00 00:00:00 Tushar C HAND WEAVER 350.1.13.10 ity of [place] [address].7.2.686 Jamal as MATERNAL [id number] [facility] & CHILD [address] [place] [address] 2019-04-29 2019-04-29 Telephone [facility] 12.840.114 [id number] Univers 00:00:00 00:00:00 Tushar C HAND WEAVER 350.1.13.10 ity of [place] [address].7.2.686 Jamal as MATERNAL [id number] [facility] ical & CHILD [address] [place] [address] 2019-04-01 2019-04-01 Telephone [facility] 1.2.840.114 [id number] Univers 00:00:00 00:00:00 Tushar C HAND WEAVER 350.1.13.10 ity of [facility] 42.7.2.686 Jamal as MATERNAL [id number] [facility] ical & CHILD [address] [place] [address] 2019 2019 Office [facility] 1.2.359.156 [id number] Univers 10:39:31 11:16:49 Visit Tushar Lund HAND WEAVER 350.1.13.10 ity of [place]IONAL 4.2.7.2.686 Jamal as MATERNAL [id number] Med ical & CHILD 107 [facility] 2019 2019 Orders Doctor MOSHE 1.2.840.114 [id number] Univers 00:00:00 00:00:00 Only Unassigned, TEDDY 350.1.13.10 ity of [place] [facility] 4.2.7.2.686 Jamal as [id number] [facility] lottie 00[address] [place] 2018-12-20 2018-12-20 Office Akinsipe, 1.2.840.2 [id number] Univers 09:37:41 10:39:11 Visit Tushar Lund 13917.1.1 i ty of 3.104.2.7 [place] .3.668733 Medica l .8 [place] 2018-12-20 2018-12-20 Telephone Akinsipe, 1.2.840.5 [id number] Univers 00:00:00 00:00:00 Tushar Lund 80878.1.1 i ty of 3.104.2.7 [place] .3.817292 Medica l .8 [place] 2018-12-20 2018-12-20 Orders Doctor 1.2.840.6 [id number] Univers 00:00:00 00:00:00 Only Unassigned, 40184.1.1 ity of [place] 3.104.2.7 [place] .3.681973 Medica l .8 [place] Results Test Description Test Time Test Comments Results Result Comments Source POCT TEST 2021-12-23 14:34:00 Test Item Value Reference Range Interpretation Comme nts POCT PREG (test code = 1605) Positive On board controls acceptable with C Line (test code = 3574) Yes POCT PREG LOT # (test code = 3575) POCT PREG TEST DATE (test code = 3576) [facility] W/O SPECIFIC [id number] 14:34:00 Test Item Value Reference Range Interpretation Comments POCT PH U (test code = 3254) 5 mg/dl 5-8 POCT U LEUK EST (test code = negative Negative - Negative 3263) POCT U NIT (test code = 3262) negative Negative - Negative POCT U PROT (test code = 3259) trace Negative - Negative POCT U GLU (test code = 3256) negative Negative - Negative POCT U KETONE (test code = 3258) 2++ Negative - Negative POCT U BLD (test code = 3257) negative Negative - Negative [id number] 14:34:00 Test Item Value Reference Range Interpretation Comments POCT PREG (test code = 1605) Positive On board controls acceptable with C Yes Line (test code = 3574) POCT PREG LOT # (test code = 3575) POCT PREG TEST DATE (test code = 3576) [facility] URINALYSIS W/O SPECIFIC [id number] 14:34:00 Test Item Value Reference Range Interpretation Comments POCT PH U (test code = 3254) 5 mg/dl 5-8 POCT U LEUK EST (test code = negative Negative - Negative 3263) POCT U NIT (test code = 3262) negative Negative - Negative POCT U PROT (test code = 3259) trace Negative - Negative POCT U GLU (test code = 3256) negative Negative - Negative POCT U KETONE (test code = 3258) 2++ Negative - Negative POCT U BLD (test code = 3257) negative Negative - Negative [facility] [id number] 14:31:00 Test Item Value Reference Range Interpretation Comments POCT PREG (test code = 1605) Positive On board controls acceptable with C Yes Line (test code = 3574) POCT PREG LOT # (test code = 3575) POCT PREG TEST DATE (test code = 3576) [facility] [id number] 18:26:00 Test Item Value Reference Range Interpretation Comments POCT PREG (test code Negative = 1605) On board controls Yes acceptable with C Line (test code = 3574) POCT PREG LOT # (test code = 3575) POCT PREG TEST DATE (test code = 3576) ARGENIS (test code = ARGENIS) accurate development and interpretation of all internal controls [facility]
--- NOTE | 2022-01-30 12:09 | ER ---
Nurse's Notes [facility] Name: Sil Gaytan Age: 21 yrs Sex: Female : 2000 Arrival Date: 01/30/2022 Time: 11:50 Bed IW1 Private MD: Diagnosis: Dental caries, unspecified Presentation: 01/30 11:55 Chief complaint: Patient states: right lower 3rd molar pain and infection x10 days. kb3 Reports she needs a root canal done but has not been able to return to the dentist for procedure. Multiple dental caries noted throughout mouth. Coronavirus screen: Vaccine status: Patient reports being unvaccinated. Client denies travel out of the [place] in the last 14 days. Ebola Screen: Patient negative for fever greater than or equal to 101.5 degrees Fahrenheit, and additional compatible Ebola Virus Disease symptoms Patient denies exposure to infectious person. Patient denies travel to an Ebola-affected area in the 21 days before illness onset. Initial Sepsis Screen: Does the patient meet any 2 criteria? No. Patient's initial sepsis screen is negative. Does the patient have a suspected source of infection? No. Patient's initial sepsis screen is negative. Risk Assessment: Do you want to hurt yourself or someone else? Patient reports no desire to harm self or others. Onset of symptoms is unknown. 11:55 Method Of Arrival: Ambulatory kb3 11:55 Acuity: DELMAR 4 kb3 Triage Assessment: 11:58 General: Appears in no apparent distress. Behavior is calm, cooperative. Pain: kb3 Complains of pain in lower right third molar Pain does not radiate. Pain currently is 5 out of 10 on a pain scale. EENT: Reports pain tooth. 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 Last tetanus immunization: up to date. - Social history:: Smoking status: Patient denies any tobacco usage or history of. Screenin:00 Abuse screen: Denies threats or abuse. Denies injuries from another. Nutritional kb3 screening: No deficits noted. Tuberculosis screening: No symptoms or risk factors identified. Fall Risk None identified. Assessment: 12:00 Reassessment: Patient appears in no apparent distress at this time. No changes from kb3 previously documented assessment. General: See triage note. Vital Signs: 11:55 BP 116 / 104; Pulse 85; Resp 20; Temp 99.3; Pulse Ox 100% ; Weight 70.76 kg; Height 5 kb3 ft. 6 in. (167.64 cm); Pain 5/10; 11:55 Body Mass Index 25.18 (70.76 kg, 167.64 cm) kb3 ED Course: 11:50 Patient arrived in ED. rg4 11:58 Triage completed. kb3 11:58 Arm band placed on right wrist. kb3 12:00 Patient has correct armband on for positive identification. kb3 12:00 No provider procedures requiring assistance completed. Patient did not have IV access kb3 during this emergency room visit. 12:01 Perry Lombardo PA is PHCP. estefany 12:01 David Shaw MD is Attending Physician. estefany Administered Medications: No medications were administered Medication: 12:00 VIS not applicable for this client. kb3 Outcome: 12:08 Discharge ordered by . [facility] 12:33 Discharged to home ambulatory. kb3 12:33 Condition: stable 12:33 Discharge instructions given to patient, Instructed on discharge instructions, follow up and referral plans. medication usage, Demonstrated understanding of instructions, follow-up care, medications, Prescriptions given X 1. 12:33 Patient left the ED. kb3 Signatures: Perry Lombardo PA PA jmm Garcia, Rubi rg4 Magda Kyle RN RN kb3 Corrections: (The following items were deleted from the chart) 11:58 11:58 Allergies: Tylenol-Codeine #3; kb3 kb3 11:58 11:58 Allergies: control pill; kb3 kb3 12:32 11:55 Chief complaint: Patient states: right lower 3rd molar pain and infection x10 kb3 days. Reports she needs a root canal done but has not been able to return to the dentist for procedure kb3
--- NOTE | 2022-01-30 12:09 | EDPHYS ---
Physician Documentation [facility] Name: Sil Gaytan Age: 21 yrs Sex: Female : 2000 Arrival Date: 01/30/2022 Time: 11:50 Bed IW1 Private MD: ED Physician David Shaw HPI: 01/30 12:05 This 21 yrs old Female presents to ER via Ambulatory with complaints of Toothache. [facility] 12:05 The patient presents with pain. Onset: The symptoms/episode began/occurred gradually. jmm This is a 21 year old female with a history of asthma that presents to the ED with complaints of right lower dental pain beginning approx 3 days ago. . [employer]: 11:58 LMP 10/22/2021, Verified, EDC 07/29/2022, Gestational age from LMP: 14 weeks 2 kb3 days Historical: - Allergies: 11:58 Codeine; kb3 11:58 PENICILLINS; kb3 11:58 Prednisone; kb3 - Home Meds: 11:58 Albuterol Inhl [Active]; kb3 - PMHx: 11:58 Asthma; kb3 - PSHx: 11:58 None; kb3 - Immunization history:: Adult Immunizations up to date, Client reports having NOT received the Covid vaccine. Last tetanus immunization: up to date. - Social history:: Smoking status: Patient denies any tobacco usage or history of. ROS: 12:05 Constitutional: Negative for fever, chills, and weight loss, Cardiovascular: Negative jmm for chest pain, palpitations, and edema, Respiratory: Negative for shortness of breath, cough, wheezing, and pleuritic chest pain. 12:05 ENT: Positive for dental pain. 12:05 All other systems are negative. Exam: 12:05 Constitutional: This is a well developed, well nourished patient who is awake, alert, jmm and in no acute distress. Head/Face: atraumatic. Eyes: EOMI, no conjunctival erythema appreciated 12:05 Chest/axilla: Normal chest wall appearance and motion. Cardiovascular: Regular rate and rhythm. No edema appreciated Respiratory: Normal respirations, no respiratory distress appreciated Abdomen/GI: Non distended Back: Normal ROM Skin: General appearance color normal MS/ Extremity: Moves all extremities, no obvious deformities appreciated, no edema noted to the lower extremities Neuro: Awake and alert Psych: Behavior is normal, Mood is normal, Patient is cooperative and pleasant 12:05 ENT: Dental exam: dental caries, that is moderate, specifically in the lower right second bicuspid (#29), lower right first molar (#30) and lower right second molar (#31). Vital Signs: 11:55 BP 116 / 104; Pulse 85; Resp 20; Temp 99.3; Pulse Ox 100% ; Weight 70.76 kg; Height 5 kb3 ft. 6 in. (167.64 cm); Pain 5/10; 11:55 Body Mass Index 25.18 (70.76 kg, 167.64 cm) kb3 MDM: 12:07 Data reviewed: vital signs, nurses notes. Counseling: I had a detailed discussion with [facility] the patient and/or guardian regarding: the historical points, exam findings, and any diagnostic results supporting the discharge/admit diagnosis, the need for outpatient follow up, to return to the emergency department if symptoms worsen or persist or if there are any questions or concerns that arise at home. ED course: I do not suspect ludwigs, or abscess. Patient advised to follow up with dentist and otherwise given strict return precautions. patient understood and agrees with the plan of care. . 12:08 Patient medically screened. [facility] Administered Medications: No medications were administered Disposition Summary: 01/30/22 12:08 Discharge Ordered Location: Home [facility] Condition: Stable [facility] Diagnosis - Dental caries, unspecified [facility] Followup: [facility] - With: Private Physician - When: 2 - 3 days - Reason: Recheck today's complaints, Continuance of care, Re-evaluation by your physician Discharge Instructions: - Discharge Summary Sheet [facility] - Dental Caries, Adult [facility] Forms: - Medication Reconciliation Form [facility] - Thank You Letter [facility] - Antibiotic Education [facility] - Prescription Opioid Use [facility] Prescriptions: - Peridex 0.12 % Mucous Membrane mouthwash - place 15 milliliter by MUCOUS MEMBRANE route 2 times per day after brushing [facility] teeth, swish in mouth for 30 seconds then spit out; 1 bottle; Refills: 0, Product Selection Permitted Signatures: Perry Lombardo PA PA jmm Bradberry, Kelly, RN RN kb3 Corrections: (The following items were deleted from the chart) 11:58 11:58 Allergies: Tylenol-Codeine #3; kb3 kb3 11:58 11:58 Allergies: control pill; kb3 kb3
[2022-01-30 12:38] VITALS: BP 116/104; TEMP 99.3; O2SAT 100
== END 2022-01-30 12:33 | disposition home or self-care (01) ==
LOC: ER 11:46
DX: O99.891 Other specified diseases and conditions complicating pregnancy (principal); Z3A.14 14 weeks gestation of pregnancy
CPT/HCPCS: 99282

== ENCOUNTER 2022-07-24 04:46 | Emergency (ER) | payer OTHER ==
--- OUTSIDE RECORDS SUMMARY | 2022-07-24 05:02 | XMS REPORT | Continuity of Care Document ---
:2000 Author Organization [facility] t Address [address] [facility] [place] [address] Care Team Providers Name Role Phone Tushar Villarreal Primary Care Physician [phone] MOSHE AGOSTO Attending Clinician Unavailable HETAL NORRIS Attending Clinician Unavailable Hetal Norris MD Attending Clinician TUSHAR LAN Attending Clinician Unavailable AUSTIN ARZOLA Attending Clinician Unavailable Austin Arzola MD Attending Clinician Tushar Villarreal Attending Clinician [phone] Doctor Unassigned, [place]ray[place] Attending Clinician Unavailable Visit, Margaretchn[place] Nurse Attending Clinician Unavailable Antonette Solano CNM Attending Clinician ANTONETTE SOLANO Attending Clinician Unavailable SHEREEN TRAVIS Attending Clinician Unavailable Risk, Qmf-Pirmh-Tb/High Attending Clinician Unavailable Shereen Travis MD Attending Clinician Ultrasound, Ang-Mfm Attending Clinician Unavailable EDWIN CAGE Attending Clinician Unavailable Fauzia WHEdwin JASON Attending Clinician David Cooper DO Attending Clinician SARA SNYDER Attending Clinician Unavailable SARA SNYDER Attending Clinician Unavailable Provider, Ang-Rmchp Temp Attending Clinician Unavailable Amari QUINONEZ, Niki Dominguez Attending Clinician NIKI RALPH Attending Clinician Unavailable JAM SAUNDERS Attending Clinician Unavailable CLINTON CRUMP Attending Clinician Unavailable Madonna QUINONEZ, Ernesto Rosario Attending Clinician ERNESTO PEACOCK Attending Clinician Unavailable Jamshid ACEVEDOP, Rosio Attending Clinician Dylan Prieto MD Attending Clinician Fonroya III, COIL FINISHER, R Attending Clinician [facility] Attending Clinician Unavailable Jeffery Dumont DO Attending Clinician Radha Charlton MD Attending Clinician Selam Fields Attending Clinician SELAM ALVES Attending Clinician Unavailable AUSTIN ARZOLA Admitting Clinician Unavailable HETAL NORRIS Admitting Clinician Unavailable Hetal Norris MD Admitting Clinician Austin Arzola MD Admitting Clinician SARA SNYDER Admitting Clinician Unavailable Payers Payer Name Policy Type Policy Number Effective Date Expiration Date S mer [employer] [id number] 2021 00:00:00 Problems Condition Condition Condition Status Onset Resolution Last Treating Co mments Source Name Details Category Date Date Treatment Clinician Date Disease Active Univers premature premature 5-25 [place]y of rupture of [place] membranes membranes 00 Med[place]ottie (PPROM) (PPROM) Branch with onset with onset of labor of labor within 24 within 24 hours of hours of rupture in rupture in third third trimester, trimester, antepartum antepartum 36 weeks 36 weeks Disease Active Unive rs gestation gestation 5-25 ity of of of 00:00: [place] 00 [facility] Liveborn Liveborn Disease Active Unive rs , of infant, of 5-25 it y of mckeon mckeon 00:00: In[place] taylor , , 00 Me dical born in born in [facility] hospital by by delivery delivery UTI in UTI in Disease Active Overview: Univer s 5-24 Formattin i ty of 00:00: g of this 00 note Medical might be Branch different from the original. Per meds sent and patient notified Supervisio Supervisio Disease Active U nivers n of n of 3-02 ity of high-risk high-risk 00:00: In[place] taylor 00 [facility] Multiparit Multiparit Disease Active U nivers y y 3-02 ity of 00:00: [place] 00 Medical Branch History of History of Disease Active 2021-02 U nivers pre-eclamp pre-eclamp 0-27 it y of [place] in 00:00: [place] prior prior 00 Medical , , Br anch currently currently Disease Active 2021-02 Uni vers related related 0-27 ity of nausea, nausea, 00:00: [place] antepartum antepartum 00 [facility] Branch Declines Declines Disease Active 2021-02 Unive rs flu flu 0-27 ity of vaccine vaccine 00:00: [place] 00 Medical Branch History of History of Disease Active 2021-02 U nivers anxiety anxiety 0-27 ity of and and 00:00: [place] depression depression 00 [facility] Missed Missed Disease Active 2021-02 Univers menses menses 0-13 ity of 00:00: [place] 00 Medical Branch History of History of Disease Active 2021-02 U nivers 0-13 ity of delivery, delivery, 00:00: Inessa taylor currently currently [address] 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 surveillan 00:00[place] ce of ce of Medical contracept contracept Br anch chris pills chris pills Disease Active Uni vers with with 4-13 ity of inconclusi inconclusi 00:00: [place] ve ve 00 Medica l viability, viability, Br anch single or single or unspecifie unspecifie d fetus d fetus Overweight Overweight Disease Active U nivers 4-13 ity of 00:00: [place] 00 Medical Branch Asthma Asthma Disease Active 2019-02 Univers during during 0 [place] Allergies, Adverse Reactions, Alerts Allergy Allergy Status Severity Reaction(s) Onset Inactive Treating Comm ents Source Name Type Date Date Clinician Codeine Drug Active Cough 2019-02 Univers Allergy ity of 00:00: [place] 00 Medical Branch CODEINE DRUG Active COUGH 2019-02 Univers INGREDI 0- ity of 00:00: [place] 00 Medical Branch Predniso Propensi Active Rash Univer s lone ty to 4-07 ity of adverse 00:00: [place] reaction 00 Medical s Branch Penicill Propensi Active Rash Univer s ins ty to 4-07 ity of adverse 00:00: [place] reaction Medical s Branch PENICILL Drug Active Rash [...] Comments Source ASSERTION 2021-11-25 University of 00:00:00 [place] [facility] History SDOH University o f Alcohol Std [place] Medical Drinks Branch History SDOH University o f Alcohol Binge [place] Medic al Branch History SDOH University o f Alcohol Comment [place] Med ical Branch Alcohol intake 2022-07-22 2022-07-22 Ex-drinker University of 00:00:00 00:00:00 (finding) [facility] Exposure to 2022-07-11 2022-07-21 Not sure [facility] SARS-CoV-2 00:00:00 10:35:00 [facility] (event) Branch Tobacco use and 2022-07-21 2022-07-21 Smokeless tobacco Un iversity of exposure 00:00:00 00:00:00 non-user [facility] History SDOH 2018-12-20 2018-12-20 1 University o f Alcohol Frequency 00:00:00 00:00:00 [facility] [place] edical [place] Sex Assigned At 2000 2002 Universit y of 00:00:00 00:00:00 [facility] Smoking Status Start Date Stop Date Source Never smoked tobacco [facility] Medications Ordered Filled Start Stop Current Ordering Indication Dosage Frequency Signature Comments Components Source Medication Medication Date Date Medication? Clinician (SIG) Name Name 2022- No Take by Unive rs 25/iron 07-23 mouth. ity of fum/folic/d 12:50: 00:00 [place] [facility] 40 :00 Medical (-1 Branch ORAL) HYDROcodone 2022- Yes 1{tbl} 1 tablet, Univers -acetaminop 07-23 Oral, ity of hen (NORCO 01:41: 01:40 Q6HPRN, Jam[place] as 5) 5-325 mg 26 :26 Starting Medi lottie tablet 1 on Mon Branch tablet 07/22/22 at 2040, Until 07/24/22 at 2039, Routine, Pain (scale 4-6) Nitrofurant 2022- Yes 100mg 100 mg, U nivers oin&Nit. 07-2303 Oral, BID, ity of Macrocryst 01:00: 00:59 14 doses, [place] (MACROBID) 00 :00 First dose Med ical 100 mg (after Branch capsule 100 last mg modificati on) on Mon07/22/22 at 2000, Last dose on Mon07/29/22 at 0800, Routine
Reason for Anti-Infec tive: Documented Infection< br>Documen brendan Infection Site: Urine
D uration of Therapy: 7 days Nitrofurant 2022- Yes 100mg 100 mg, U nivers oin&Nit. 5-27 06-03 Oral, BID, ity of Macrocryst 01:00: 00:59 14 doses, [place] (MACROBID) 00 :00 First dose Med ical 100 mg (after Branch capsule 100 last mg modificati on) on Mon07/22/22 at 2000, Last dose on Mon07/29/22 at 0800, Routine
Reason for Anti-Infec tive: Documented Infection< br>Documen brendan Infection Site: Urine
D uration of Therapy: 7 days Yes [id number] 1{tbl} Take 1 Univers vitamin 5-27 tablet by ity of w/FA tablet 00:00: mouth in [place] 00 the Medical morning. Branch docusate Yes [id number] 200mg Take 2 U nivers 100 mg 5-27 capsules ity of capsule 00:00: by mouth [place] 00 once daily Medical as needed Branch for Constipati on. ferrous Yes [id number] 325mg Take 1 Un odilon sulfate 325 5-27 tablet by ity of mg (65 mg 00:00: [place] iron[place] 00 the Medical tablet morning Branch and 1 tablet in the evening. ibuprofen Yes [id number] 600mg Take 1 Univers 600 mg 5-27 tablet by ity of tablet 00:00: mouth [place] 00 every 6 Medical (six) Branch hours as needed (Pain). Take with food or milk. HYDROcodone 2022- Yes [id number] 1{tbl} Take 1 U nivers -acetaminop 5-27 -04 tablet by it y of hen 5-325 00:00: 04:59 mouth [place] mg tablet 00 :00 every 6 Medical (six) Branch hours as needed (Pain scale above 4) for up to 7 days. Do not exceed 3 grams of acetaminop hen in 24 hours. Indication s: acute pain ibuprofen 2022-0 Yes 600mg 600 mg, Univ ers (IBU) 5-26 Oral, Q6H, ity of tablet 600 23:00: First dose [place] mg 00 on Mon07/22/22 at Branch 1800, Until Discontinu ed, Routine ibuprofen 2023-0 Yes 600mg 600 mg, Univ ers (IBU) 07-22 Oral, Q6H, ity of tablet 600 23:00: First dose [place] mg 00 on Mon Medical 07/22/22 at Branch 1800, Until Discontinu ed, Routine acetaminoph Yes 650mg 650 mg, Un odilon en 07-22 Oral, ity of (TYLENOL) 20:00: Q6HPRN, [place] tablet 650 00 Starting Medic al mg on Mon Branch 07/22/22 at 1500, Until Discontinu ed, Routine, Pain acetaminoph 0 Yes 650mg 650 mg, Un odilon en 07-22 Oral, ity of (TYLENOL) 20:00: Q6HPRN, [place] tablet 650 00 Starting Medic al mg on Mon Branch 07/22/22 at 1500, Until Discontinu ed, Routine, Pain acetaminoph 2022- No 1000mg 1,000 mg, Univers en ADULT 07-22- IV ity of (OFIRMEV) 02:00: 15:02 Infusion, [place] injection 00 :00 at 400 Medical 1,000 mg mL/hr Branch Administer over 15 Minutes, Q6H, 3 doses, First dose (after last modificati on) on Mon07/21/22 at 2100, Last dose on Mon07/22/22 at 0600, Routine
Indicatio n: Perioperat chris Patient ketorolac 2022- No 30mg 30 mg, Unive rs (TORADOL) 07-21- Slow IV ity of injection 23:00: 16:43 Push, Q6H, [place] 30 mg 00 :00 4 doses, Medical First dose Branch on Mon07/21/22 at 1800, Last dose on Mon07/22/22 at 1200, Routine lactated 2022- No 1000mL at 125 Univ ers ringers IV 07-21 05-25 mL/hr, ity of infusion 21:30: 20:12 1,000 mL, Jamal as 1,000 mL 00 :06 IV Medical Infusion, Branch ONCE, 1 dose, On Mon07/21/22 at 1630, Routine diphenhydrA Yes 25mg 25 mg, Univ ers MINE 07-21 Slow IV ity of (BENADRYL) 20:34: Push, [place] injection 05 Q6HPRN, Medical 25 mg Starting Branch on [place] 07/21/22 at 1534, Until Discontinu ed, Routine, Itching diphenhydrA 0 Yes 25mg 25 mg, Univ ers MINE 5-25 Oral, ity of (BENADRYL) 20:34: Q6HPRN, [place] tablet 25 05 Starting Medica l mg on [facility] Branch 07/21/22 at 1534, Until Discontinu ed, Routine, Sleep, Itching ondansetron 0 Yes 4mg 4 mg, Slow Univers (ZOFRAN 5-25 IV Push, ity of (PF)) 20:34: Q8HPRN, [place] injection 4 05 Starting Medi lottie mg on [facility] Branch 07/21/22 at 1534, Until Discontinu ed, Routine, Nausea and Vomiting (N/V) bisacodyL 0 Yes 10mg 10 mg, Univer s (DULCOLAX) 5-25 Rectal, ity of suppository 20:34: QDAILYPRN, [place] 10 mg 05 Starting Medical on [place] Branch 07/21/22 at 1534, Until Discontinu ed, Routine, Constipati on simethicone Yes 160mg 160 mg, Un oidlon (GAS RELIEF 5-25 Oral, ity of (SIMETHICON 20:34: PC+HSPRN, [place] E)) 05 Starting Medical chewable on [facility] Branch tablet 160 07/21/22 at mg 1534, Until Discontinu ed, Routine, Gas docusate 0 Yes 200mg 200 mg, Unive rs (COLACE) 5-25 Oral, ity of capsule 200 20:34: QDAILYPRN, [place] mg 05 Starting Medical on [place] Branch 07/21/22 at 1534, Until Discontinu ed, Routine, Constipati on magnesium 0 Yes 30mL 30 mL, Univer s hydroxide 5-25 Oral, ity of (MILK OF 20:34: QDAILYPRN, [place] as MAGNESIA) 05 Starting Medica l 400 mg/5 mL on [place] Branch suspension 07/21/22 at 30 mL 1534, Until Discontinu ed, Routine, Constipati on diphenhydrA 2022-0 Yes 25mg 25 mg, Univ ers MINE 5-25 Slow IV ity of (BENADRYL) 20:34: Push, [place] injection 05 Q6HPRN, Medical 25 mg Starting Branch on [place] 07/21/22 at 1534, Until Discontinu ed, Routine, Itching diphenhydrA 2022-0 Yes 25mg 25 mg, Univ ers MINE 5-25 Oral, ity of (BENADRYL) 20:34: Q6HPRN, [place] tablet 25 05 Starting Medica l mg on [facility] Branch 07/21/22 at 1534, Until Discontinu ed, Routine, Sleep, Itching ondansetron 0 Yes 4mg 4 mg, Slow Univers (ZOFRAN 5-25 IV Push, ity of (PF)) 20:34: Q8HPRN, [place] injection 4 05 Starting Medi lottie mg on [facility] Branch 07/21/22 at 1534, Until Discontinu ed, Routine, Nausea and Vomiting (N/V) bisacodyL Yes 10mg 10 mg, Univer s (DULCOLAX) 5-25 Rectal, ity of suppository 20:34: QDAILYPRN, [place] 10 mg 05 Starting Medical on [facility] Branch 07/21/22 at 1534, Until Discontinu ed, Routine, Constipati on simethicone Yes 160mg 160 mg, Un odilon (GAS RELIEF 5-25 Oral, ity of (SIMETHICON 20:34: PC+HSPRN, [place] E)) 05 Starting Medical chewable on [facility] Branch tablet 160 07/21/22 at mg 1534, Until Discontinu ed, Routine, Gas docusate 0 Yes 200mg 200 mg, Unive rs (COLACE) 5-25 Oral, ity of capsule 200 20:34: QDAILYPRN, [place] mg 05 Starting Medical on [facility] Branch 07/21/22 at 1534, Until Discontinu ed, Routine, Constipati on magnesium 0 Yes 30mL 30 mL, Univer s hydroxide 5-25 Oral, ity of (MILK OF 20:34: QDAILYPRN, [place] as MAGNESIA) 05 Starting Medica l 400 mg/5 mL on [facility] Branch suspension 07/21/22 at 30 mL 1534, Until Discontinu ed, Routine, Constipati on lactated 2022- No 1000mL at 125 Univ ers ringers IV 07-21 05-26 mL/hr, ity of infusion 20:34: 00:14 1,000 mL, Jamal as 1,000 mL 05 :00 IV Medical Infusion, Branch PRN, 1 dose, Starting on [place] 07/21/22 at 1534, Until Discontinu ed, Routine ceFAZolin 2022- No 2000mg 2,000 mg, Univers (ANCEF) 07-21-25 IV ity of 2,000 mg in 19:30: 19:07 Piggyback, [place] NaCl 0.9% 00 :00 ONCE, 1 Medical (NS) 100 mL dose, On Bran ch MINI-BAG [place] 07/21/22 at 1430, Administer over 30 Minutes, 100 mL
Reas on for Anti-Infec tive: Surgical Prophylaxi s
Surgi lottie Prophylaxi s: Abdominal< br>Dura tion of therapy: within 24 hours of surgery terbutaline No .25mg 0.25 mg, Univers (BRETHINE) 07-21-25 Subcutaneo it y of injection 16:37: 20:41 us, Q15MIN [place] 0.25 mg 33 :35 PRN, 3 Medical doses, Branch Starting on [place] 07/21/22 at 1137, Until [place] 07/21/22 at 1541, Routine, Tachysysto le with NRFHT sodium 2022- No 30mL 30 mL, Univers citrate-cit 07-21 05-25 Oral, ity of [place] acid 16:32: 18:32 PRE-PROCED [place] (BICITRA) 59 :00 URE ONCE, Medic al 500-334 1 dose, Branch mg/5 mL Starting solution 30 on [place] mL 07/21/22 at 1132, Until Discontinu ed, Routine, Surgery/Pr ocedure lactated 2022- No 500mL at 999 Unive rs ringers IV 525 05-25 mL/hr, 500 it y of infusion 16:32: 20:41 mL, IV [place] 500 mL 59 :35 Infusion, Medical PRN - SEE Branch INSTRUCTIO NS, Starting on [place] 07/21/22 at 1132, Until [place] 07/21/22 at 1541, Routine D5W-LR IV 2022-2022- No 1000mL at 1-125 U nivers infusion 5-25 05-25 mL/hr, IV ity o f 1,000 mL 16:32: 20:41 Infusion, Jamal as 59 :35 TITRATE, Medical Starting Branch on [place] 07/21/22 at 1132, Until [place] 07/21/22 at 1541, Routine 2022-0 Yes Take by Univer s 25/iron 5-25 mouth. ity of fum/folic/d 11:32: [place] betancur 19 Medical (-1 Branch ORAL) Nitrofurant Yes [id number] 100mg Take 1 Univers oin&Nit. 5-23 capsule by ity o f Macrocryst 00:00: mouth in [place] as 100 mg 00 the Medical capsule morning Branch and 1 capsule in the evening. Nitrofurant 0 Yes [id number] 100mg Take 1 Univers oin&Nit. 5-23 capsule by ity o f Macrocryst 00:00: mouth in [place] as 100 mg 00 the Medical capsule morning Branch and 1 capsule in the evening. Nitrofurant 0 Yes [id number] 100mg Take 1 Univers oin&Nit. 5-23 capsule by ity o f Macrocryst 00:00: mouth in [place] as 100 mg 00 the Medical capsule morning Branch and 1 capsule in the evening. Yes Take by Univer s 25/iron 5-21 mouth. ity of fum/folic/d 12:50: [place] betancur 57 Medical (-1 Branch ORAL) 0 Yes Take by Univer s 25/iron 5-21 mouth. ity of fum/folic/d 12:50: [place] betancur 57 Medical (-1 Branch ORAL) 2022-0 Yes Take by Univer s 25/iron 5-15 mouth. ity of fum/folic/d 03:19: [place] betancur 16 Medical (-1 Branch ORAL) 2022-0 Yes Take by Univer s 25/iron 5-15 mouth. ity of fum/folic/d 03:19: [place] betancur 16 Medical (-1 Branch ORAL) 2023-0 Yes Take by [employer] s 25/iron 5-15 mouth. ity of fum/folic/d 03:19: [facility] 16 Medical (-1 Branch ORAL) terbutaline 2022- No .25mg 0.25 mg, Univers (BRETHINE) 5-10 05-10 Subcutaneo it y of injection 08:45: 07:59 [place], ONCE, [place] 0.25 mg 00 :00 1 dose, On Medica l Mon07/06/22 at 0345, Routine NaCl 0.9% 2022- No 1000mL at 999 Uni vers (NS) bolus 5-10 05-10 mL/hr, ity of infusion 06:30: 06:30 1,000 mL, [place] as 1,000 mL 00 :27 IV Medical Infusion, Branch ONCE, 1 dose, On Mon07/06/22 at 0130, STAT Yes Take by [employer] 25/iron 5-10 mouth. ity of fum/folic/d 05:26: [place] [id number] Medical (-1 Branch ORAL) Yes Take by [employer] 25/iron 5-10 mouth. ity of fum/folic/d 05:26: [place] [address] Medical (-1 Branch ORAL) Yes Take by [employer] 25/iron 5-10 mouth. ity of fum/folic/d 05:26: [place] [address] Medical (-1 Branch ORAL) metroNIDAZO 2022- No [id number] 500mg Take 1 Univers LE 500 mg 2-16 -24 tablet by ity of tablet 00:00: 05:59 mouth in [place] 00 :00 the Medical morning Branch and 1 tablet in the evening. Do all this for 7 days. metroNIDAZO 2022- No [id number] 500mg Take 1 Univers LE 500 mg 2-16 -24 tablet by ity of tablet 00:00: 05:59 mouth in [place] 00 :00 the Medical morning Branch and 1 tablet in the evening. Do all this for 7 days. metroNIDAZO 2022- No [id number] 500mg Take 1 Univers LE 500 mg 2-16 -24 tablet by ity of tablet 00:00: 05:59 mouth in [place] 00 :00 the Medical morning Branch and 1 tablet in the evening. Do all this for 7 days. metroNIDAZO 2023-0 2023- No [id number] 500mg Take 1 Univers LE 500 mg 04-1424 tablet by ity of tablet 00:00: 05:59 mouth in [place] 00 :00 the Medical morning Branch and 1 tablet in the evening. Do all this for 7 days. metroNIDAZO 2023-0 2023- No [id number] 500mg Take 1 Univers LE 500 mg 04-14-24 tablet by ity of tablet 00:00: 05:59 mouth in [place] 00 :00 the Medical morning Branch and 1 tablet in the evening. Do all this for 7 days. hydroxyprog 2023-0 2023- No [id number] 275mg Univers esterone(PF 03-31 ity of ) (KATHLEEN 06:00: 04:59 [place] AUTO-INJECT 00 :00 Medical OR) 275 Branch mg/1.1 mL injection 275 mg hydroxyprog 2023-0 2023- No [id number] 275mg Univers esterone(PF 03-31 ity of ) (KATHLEEN 06:00: 04:59 [place] AUTO-INJECT 00 :00 Medical OR) 275 Branch mg/1.1 mL injection 275 mg hydroxyprog 2023-0 2023- No [id number] 275mg 275 mg, Univers esterone(PF 03-31 Subcutaneo i ty of ) (KATHLEEN 06:00: 04:59 , [place] AUTO-INJECT 00 :00 QWEEKLY, [facility] OR) 275 16 doses, Branch mg/1.1 mL First dose injection on Mon 275 mg 03/31/22 at 0000, Last dose on Al[place] 07/14/22 at 0000, Routine hydroxyprog 2023-0 2023- No [id number] 275mg Univers esterone(PF 03-31 ity of ) (KATHLEEN 06:00: 04:59 [place] AUTO-INJECT 00 :00 Medical OR) 275 Branch mg/1.1 mL injection 275 mg hydroxyprog 2023-0 2023- No [id number] 275mg 275 mg, Univers esterone(PF 03-31 Subcutaneo i ty of ) (KATHLEEN 06:00: 04:59 us, [place] AUTO-INJECT 00 :00 QWEEKLY, [facility] OR) 275 16 doses, Branch mg/1.1 mL First dose injection on [place] 275 mg 03/31/22 at 0000, Last dose on [place] 07/14/22 at 0000, Routine hydroxyprog 2023-0 2023- No [id number] 275mg Univers esterone(PF 03-31 ity of ) (KATHLEEN 06:00: 04:59 [place] AUTO-INJECT 00 :00 Medical OR) 275 Branch mg/1.1 mL injection 275 mg hydroxyprog 2023-0 2023- No [id number] 275mg Univers esterone(PF 03-31 ity of ) (KATHLEEN 06:00: 04:59 [place] AUTO-INJECT 00 :00 Medical OR) 275 Branch mg/1.1 mL injection 275 mg hydroxyprog 2023-0 2023- No [id number] 275mg Univers esterone(PF 03-31 ity of ) (KATHLEEN 06:00: 04:59 [place] AUTO-INJECT 00 :00 Medical OR) 275 Branch mg/1.1 mL injection 275 mg hydroxyprog 2023-0 2023- No [id number] 275mg Univers esterone(PF 03-31 ity of ) (KATHLEEN 06:00: 04:59 [place] AUTO-INJECT 00 :00 Medical OR) 275 Branch mg/1.1 mL injection 275 mg hydroxyprog 2023-0 2023- No [id number] 275mg Univers esterone(PF 03-31 ity of ) (KATHLEEN 06:00: 04:59 [place] AUTO-INJECT 00 :00 Medical OR) 275 Branch mg/1.1 mL injection 275 mg hydroxyprog 2023-0 2023- No [id number] 275mg 275 mg, Univers esterone(PF 03-31 Subcutaneo i ty of ) (KATHLEEN 06:00: 04:59 , [place] AUTO-INJECT 00 :00 QWEEKLY, [facility] OR) 275 16 doses, Branch mg/1.1 mL First dose injection on [place] 275 mg 03/31/22 at 0000, Last dose on [place] 07/14/22 at 0000, Routine hydroxyprog 2023-0 2023- No [id number] 275mg Univers esterone(PF 03-31 ity of ) (KATHLEEN 06:00: 04:59 [place] AUTO-INJECT 00 :00 Medical OR) 275 Branch mg/1.1 mL injection 275 mg hydroxyprog 2023-0 2023- No [id number] 275mg Univers esterone(PF 03-31 ity of ) (KATHLEEN 06:00: 04:59 [place] AUTO-INJECT 00 :00 Medical OR) 275 Branch mg/1.1 mL injection 275 mg hydroxyprog 2023-0 2023- No [id number] 275mg Univers esterone(PF 03-31 ity of ) (KATHLEEN 06:00: 04:59 [place] AUTO-INJECT 00 :00 Medical OR) 275 Branch mg/1.1 mL injection 275 mg hydroxyprog 2023-0 2023- No [id number] 275mg 275 mg, Univers esterone(PF 03-31 Subcutaneo i ty of ) (KATHLEEN 06:00: 04:59 , [place] AUTO-INJECT 00 :00 QWEEKLY, Medi lottie OR) 275 16 doses, Branch mg/1.1 mL First dose injection on [place] 275 mg 03/31/22 at 0000, Last dose on [place] 07/14/22 at 0000, Routine hydroxyprog 2023-0 2023- No [id number] 275mg Univers esterone(PF 03-31 ity of ) (KATHLEEN 06:00: 04:59 [place] AUTO-INJECT 00 :00 Medical OR) 275 Branch mg/1.1 mL injection 275 mg hydroxyprog 2023-0 202- No [id number] 275mg 275 mg, Univers esterone(PF 03-31 Subcutaneo i ty of ) (KATHLEEN 06:00: 04:59 us, [place] AUTO-INJECT 00 :00 QWEEKLY, Medi lottie OR) 275 16 doses, Branch mg/1.1 mL First dose injection on [place] 275 mg 03/31/22 at 0000, Last dose on [place] 07/14/22 at 0000, Routine hydroxyprog 2023-0 2023- No [id number] 275mg Univers esterone(PF 03-31 ity of ) (KATHLEEN 06:00: 04:59 [place] AUTO-INJECT 00 :00 Medical OR) 275 Branch mg/1.1 mL injection 275 mg hydroxyprog 2023-0 2023- No [id number] 275mg 275 mg, Univers esterone(PF 03-31 Subcutaneo i ty of ) (KATHLEEN 06:00: 04:59 us, [place] AUTO-INJECT 00 :00 QWEEKLY, [facility] OR) 275 16 doses, Branch mg/1.1 mL First dose injection on [place] 275 mg 03/31/22 at 0000, Last dose on [place] 07/14/22 at 0000, Routine hydroxyprog 2023-0 2023- No [id number] 275mg Univers esterone(PF 03-31 ity of ) (KATHLEEN 06:00: 04:59 [place] AUTO-INJECT 00 :00 Medical OR) 275 Branch mg/1.1 mL injection 275 mg hydroxyprog 2023-0 2023- No [id number] 275mg 275 mg, Univers esterone(PF 03-31 Subcutaneo i ty of ) (KATHLEEN 06:00: 04:59 us, [place] AUTO-INJECT 00 :00 QWEEKLY, [facility] OR) 275 16 doses, Branch mg/1.1 mL First dose injection on [place] 275 mg 03/31/22 at 0000, Last dose on [place] 07/14/22 at 0000, Routine hydroxyprog 2023-0 2023- No [id number] 275mg Univers esterone(PF 03-31 ity of ) (KATHLEEN 06:00: 04:59 [place] AUTO-INJECT 00 :00 Medical OR) 275 Branch mg/1.1 mL injection 275 mg hydroxyprog 2023-0 2023- No [id number] 275mg Univers esterone(PF 03-31 ity of ) (KATHLEEN 06:00: 04:59 [place] AUTO-INJECT 00 :00 Medical OR) 275 Branch mg/1.1 mL injection 275 mg hydroxyprog 2023-0 2023- No [id number] 275mg 275 mg, [facility] ester[facility](PF 03-31 Subcutaneo i ty of ) (KATHLEEN 06:00: 04:59 us, [place] AUTO-INJECT 00 :00 QWEEKLY, [facility] OR) 275 16 doses, Branch mg/1.1 mL First dose injection on [place] 275 mg 03/31/22 at 0000, Last dose on [place] 07/14/22 at 0000, Routine hydroxyprog 2023-0 2023- No [id number] 275mg [facility] esterone(PF 03-31 ity of ) (KATHLEEN 06:00: 04:59 [place] AUTO-INJECT 00 :00 Medical OR) 275 Branch mg/1.1 mL injection 275 mg hydroxyprog 2023-0 2023- No [id number] 275mg 275 mg, [facility] esterone(PF 03-31 Subcutaneo i ty of ) (KATHLEEN 06:00: 04:59 us, [place] AUTO-INJECT 00 :00 QWEEKLY, [facility] OR) 275 16 doses, Branch mg/1.1 mL First dose injection on [place] 275 mg 03/31/22 at 0000, Last dose on [place] 07/14/22 at 0000, Routine hydroxyprog 2023-0 2023- No [id number] 275mg [facility] ester[facility](PF 03-31 ity of ) (KATHLEEN 06:00: 04:59 [place] AUTO-INJECT 00 :00 Medical OR) 275 Branch mg/1.1 mL injection 275 mg hydroxyprog 2023-0 2023- No [id number] 275mg 275 mg, [facility] esterone(PF 03-31 Subcutaneo i ty of ) (KATHLEEN 06:00: 04:59 us, [place] AUTO-INJECT 00 :00 QWEEKLY, [facility] OR) 275 16 doses, Branch mg/1.1 mL First dose injection on [place] 275 mg 03/31/22 at 0000, Last dose on [place] 07/14/22 at 0000, Routine hydroxyprog 2023-0 2023- No [id number] 275mg [facility] ester[facility](PF 03-31 ity of ) (KATHLEEN 06:00: 04:59 [place] AUTO-INJECT 00 :00 Medical OR) 275 Branch mg/1.1 mL injection 275 mg hydroxyprog 2023-0 2023- No [id number] 275mg 275 mg, [facility] esterone(PF 03-31 Subcutaneo i ty of ) (KATHLEEN 06:00: 04:59 us, [place] AUTO-INJECT 00 :00 QWEEKLY, [facility] OR) 275 16 doses, Branch mg/1.1 mL First dose injection on [place] 275 mg 03/31/22 at 0000, Last dose on [place] 07/14/22 at 0000, Routine hydroxyprog 2023-0 2023- No [id number] 275mg [facility] ester[facility](PF 03-31 ity of ) (KATHLEEN 06:00: 04:59 [place] AUTO-INJECT 00 :00 Medical OR) 275 Branch mg/1.1 mL injection 275 mg hydroxyprog 2023-0 2023- No [id number] 275mg 275 mg, [facility] esterone(PF 03-31 Subcutaneo i ty of ) (KATHLEEN 06:00: 04:59 us, [place] AUTO-INJECT 00 :00 QWEEKLY, [facility] OR) 275 16 doses, Branch mg/1.1 mL First dose injection on [place] 275 mg 03/31/22 at 0000, Last dose on [place] 07/14/22 at 0000, Routine hydroxyprog 2023-0 2023- No [id number] 275mg [facility] ester[facility](PF 03-31 ity of ) (KATHLEEN 06:00: 04:59 [place] AUTO-INJECT 00 :00 Medical OR) 275 Branch mg/1.1 mL injection 275 mg hydroxyprog 2023-0 2023- No [id number] 275mg 275 mg, [facility] esterone(PF 03-31 Subcutaneo i ty of ) (KATHLEEN 06:00: 04:59 us, [place] AUTO-INJECT 00 :00 QWEEKLY, [facility] OR) 275 16 doses, Branch mg/1.1 mL First dose injection on [place] 275 mg 03/31/22 at 0000, Last dose on [place] 07/14/22 at 0000, Routine hydroxyprog 2023-0 2023- No [id number] 275mg [facility] ester[facility](PF 03-31 ity of ) (KATHLEEN 06:00: 04:59 [place] AUTO-INJECT 00 :00 Medical OR) 275 Branch mg/1.1 mL injection 275 mg hydroxyprog 2023-0 2023- No [id number] 275mg [facility] ester[facility](PF 03-31 ity of ) (KATHLEEN 06:00: 04:59 [place] AUTO-INJECT 00 :00 Medical OR) 275 Branch mg/1.1 mL injection 275 mg hydroxyprog 2023-0 2023- No [id number] 275mg [facility] ester[facility](PF 03-31 ity of ) (KATHLEEN 06:00: 04:59 [place] AUTO-INJECT 00 :00 Medical OR) 275 Branch mg/1.1 mL injection 275 mg hydroxyprog 2023-0 2023- No [id number] 275mg [facility] ester[facility](PF 03-31 ity of ) (KATHLEEN 06:00: 04:59 [place] AUTO-INJECT 00 :00 Medical OR) 275 Branch mg/1.1 mL injection 275 mg hydroxyprog 2023-0 2023- No [id number] 275mg [facility] esterone(PF 03-31 ity of ) (KATHLEEN 06:00: 04:59 [place] AUTO-INJECT 00 :00 Medical OR) 275 Branch mg/1.1 mL injection 275 mg hydroxyprog 2023-0 2023- No [id number] 275mg [facility] esterone(PF 03-31 ity of ) (KATHLEEN 06:00: 04:59 [place] AUTO-INJECT 00 :00 Medical OR) 275 Branch mg/1.1 mL injection 275 mg hydroxyprog 2023-0 2023- No [id number] 275mg [facility] ester[facility](PF 03-31 ity of ) (KATHLEEN 06:00: 04:59 [place] AUTO-INJECT 00 :00 Medical OR) 275 Branch mg/1.1 mL injection 275 mg hydroxyprog 2023-0 2023- No [id number] 275mg [facility] esterone(PF 03-31 ity of ) (KATHLEEN 06:00: 04:59 [place] AUTO-INJECT 00 :00 Medical OR) 275 Branch mg/1.1 mL injection 275 mg hydroxyprog 2023-0 2023- No [id number] 275mg [facility] esterone(PF 03-31 ity of ) (KATHLEEN 06:00: 04:59 [place] AUTO-INJECT 00 :00 Medical OR) 275 Branch mg/1.1 mL injection 275 mg hydroxyprog 2023-0 2023- No [id number] 275mg [facility] esterone(PF 03-31 ity of ) (KATHLEEN 06:00: 04:59 [place] AUTO-INJECT 00 :00 Medical OR) 275 Branch mg/1.1 mL injection 275 mg hydroxyprog 2023-0 2023- No [id number] 275mg [facility] ester[facility](PF 03-31 ity of ) (KATHLEEN 06:00: 04:59 [place] AUTO-INJECT 00 :00 Medical OR) 275 Branch mg/1.1 mL injection 275 mg hydroxyprog 2023-0 2023- No [id number] 275mg [facility] esterone(PF 03-24 ity of ) (KATHLEEN 16:45: 15:59 [place] AUTO-INJECT 00 :00 Medical OR) 275 Branch mg/1.1 mL injection 275 mg hydroxyprog 2023-0 2023- No [id number] 275mg 275 mg, [facility] esterone(PF 03-24 Subcutaneo i ty of ) (KTAHLEEN 16:45: 15:59 [place] AUTO-INJECT 00 :00 1 dose, On Me dical OR) 275 [place] Branch mg/1.1 mL 03/24/22 at injection 1045, 275 mg Routine hydroxyprog 2023-0 Yes 275mg inject 1.1 [facility] esterone,PF 1-09 mL under ity of , 275 00:00: the skin [place] mg/1.1 mL 00 weekly. Medical injection Branch hydroxyprog 2023-0 Yes 275mg inject 1.1 [facility] esterone,PF 1-09 mL under ity of , 275 00:00: the skin [place] mg/1.1 mL 00 weekly. Medical injection Branch hydroxyprog 2023-0 Yes [id number] 275mg inject 1.1 [facility] esterone,PF 1-09 mL under ity of , 275 00:00: the skin [place] mg/1.1 mL 00 weekly. Medical injection Branch hydroxyprog 2023-0 Yes 275mg inject 1.1 [facility] esterone,PF 1-09 mL under ity of , 275 00:00: the skin [place] mg/1.1 mL 00 weekly. Medical injection Branch hydroxyprog 2023-0 Yes [id number] 275mg inject 1.1 [facility] ester[facility],PF 1-09 mL under ity of , 275 00:00: the skin [place] mg/1.1 mL 00 weekly. Medical injection Branch hydroxyprog 2023-0 Yes 275mg inject 1.1 [facility] ester[facility],PF 1-09 mL under ity of , 275 00:00: the skin [place] mg/1.1 mL 00 weekly. Medical injection Branch hydroxyprog 2023-0 Yes [id number] 275mg inject 1.1 [facility] ester[facility],PF 1-09 mL under ity of , 275 00:00: the skin [place] mg/1.1 mL 00 weekly. Medical injection Branch hydroxyprog 2023-0 Yes 275mg inject 1.1 [facility] ester[facility],PF 1-09 mL under ity of , 275 00:00: the skin [place] mg/1.1 mL 00 weekly. Medical injection Branch hydroxyprog 2023-0 Yes [id number] 275mg inject 1.1 [facility] ester[facility],PF 1-09 mL under ity of , 275 00:00: the skin [place] mg/1.1 mL 00 weekly. Medical injection Branch hydroxyprog 2023-0 Yes 275mg inject 1.1 [facility] ester[facility],PF 1-09 mL under ity of , 275 00:00: the skin [place] mg/1.1 mL 00 weekly. Medical injection Branch hydroxyprog 2023-0 Yes [id number] 275mg inject 1.1 [facility] ester[facility],PF 1-09 mL under ity of , 275 00:00: the skin [place] mg/1.1 mL 00 weekly. Medical injection Branch hydroxyprog 2023-0 Yes 275mg inject 1.1 [facility] ester[facility],PF 1-09 mL under ity of , 275 00:00: the skin [place] mg/1.1 mL 00 weekly. Medical injection Branch hydroxyprog 2023-0 Yes [id number] 275mg inject 1.1 [facility] ester[facility],PF 1-09 mL under ity of , 275 00:00: the skin [place] mg/1.1 mL 00 weekly. Medical injection Branch hydroxyprog 2023-0 Yes 275mg inject 1.1 [facility] ester[facility],PF 1-09 mL under ity of , 275 00:00: the skin [place] mg/1.1 mL 00 weekly. Medical injection Branch hydroxyprog 2023-0 Yes [id number] 275mg inject 1.1 [facility] ester[facility],PF 1-09 mL under ity of , 275 00:00: the skin [place] mg/1.1 mL 00 weekly. Medical injection Branch hydroxyprog 2023-0 Yes 275mg inject 1.1 [facility] ester[facility],PF 1-09 mL under ity of , 275 00:00: the skin [place] mg/1.1 mL 00 weekly. Medical injection Branch hydroxyprog 2023-0 Yes [id number] 275mg inject 1.1 [facility] esterone,PF 1-09 mL under ity of , 275 00:00: the skin [place] mg/1.1 mL 00 weekly. Medical injection Branch hydroxyprog 2023-0 Yes 275mg inject 1.1 [facility] esterone,PF 1-09 mL under ity of , 275 00:00: the skin [place] mg/1.1 mL 00 weekly. Medical injection Branch hydroxyprog 2023-0 Yes [id number] 275mg inject 1.1 [facility] ester[facility],PF 1-09 mL under ity of , 275 00:00: the skin [place] mg/1.1 mL 00 weekly. Medical injection Branch hydroxyprog 2023-0 Yes 275mg inject 1.1 [facility] esterone,PF 1-09 mL under ity of , 275 00:00: the skin [place] mg/1.1 mL 00 weekly. Medical injection Branch hydroxyprog 2023-0 Yes [id number] 275mg inject 1.1 [facility] ester[facility],PF 1-09 mL under ity of , 275 00:00: the skin [place] mg/1.1 mL 00 weekly. Medical injection Branch hydroxyprog 2023-0 Yes 275mg inject 1.1 [facility] esterone,PF 1-09 mL under ity of , 275 00:00: the skin [place] mg/1.1 mL 00 weekly. Medical injection Branch hydroxyprog 2023-0 Yes [id number] 275mg inject 1.1 [facility] ester[facility],PF 1-09 mL under ity of , 275 00:00: the skin [place] mg/1.1 mL 00 weekly. Medical injection Branch hydroxyprog 2023-0 Yes 275mg inject 1.1 [facility] esterone,PF 1-09 mL under ity of , 275 00:00: the skin [place] mg/1.1 mL 00 weekly. Medical injection Branch hydroxyprog 2023-0 Yes [id number] 275mg inject 1.1 [facility] esterone,PF 1-09 mL under ity of , 275 00:00: the skin [place] mg/1.1 mL 00 weekly. Medical injection Branch hydroxyprog 2023-0 Yes 275mg inject 1.1 [facility] esterone,PF 1-09 mL under ity of , 275 00:00: the skin [place] mg/1.1 mL 00 weekly. Medical injection Branch hydroxyprog 2023-0 Yes [id number] 275mg inject 1.1 [facility] esterone,PF 1-09 mL under ity of , 275 00:00: the skin [place] mg/1.1 mL 00 weekly. Medical injection Branch hydroxyprog 2023-0 Yes 275mg inject 1.1 [facility] esterone,PF 1-09 mL under ity of , 275 00:00: the skin [place] mg/1.1 mL 00 weekly. Medical injection Branch hydroxyprog 2023-0 Yes [id number] 275mg inject 1.1 [facility] esterone,PF 1-09 mL under ity of , 275 00:00: the skin [place] mg/1.1 mL 00 weekly. Medical injection Branch hydroxyprog 2023-0 Yes 275mg inject 1.1 [facility] esterone,PF 1-09 mL under ity of , 275 00:00: the skin [place] mg/1.1 mL 00 weekly. Medical injection Branch hydroxyprog 2023-0 Yes [id number] 275mg inject 1.1 [facility] esterone,PF 1-09 mL under ity of , 275 00:00: the skin [place] mg/1.1 mL 00 weekly. Medical injection Branch hydroxyprog 2023-0 Yes 275mg inject 1.1 [facility] esterone,PF 1-09 mL under ity of , 275 00:00: the skin [place] mg/1.1 mL 00 weekly. Medical injection Branch hydroxyprog 2023-0 Yes [id number] 275mg inject 1.1 [facility] esterone,PF 1-09 mL under ity of , 275 00:00: the skin [place] mg/1.1 mL 00 weekly. Medical injection Branch hydroxyprog 2023-0 Yes 275mg inject 1.1 [facility] esterone,PF 1-09 mL under ity of , 275 00:00: the skin [place] mg/1.1 mL 00 weekly. Medical injection Branch hydroxyprog 2023-0 Yes [id number] 275mg inject 1.1 [facility] esterone,PF 1-09 mL under ity of , 275 00:00: the skin [place] mg/1.1 mL 00 weekly. Medical injection Branch hydroxyprog 2023-0 Yes 275mg inject 1.1 [facility] esterone,PF 1-09 mL under ity of , 275 00:00: the skin [place] mg/1.1 mL 00 weekly. Medical injection Branch hydroxyprog 2023-0 Yes [id number] 275mg inject 1.1 [facility] esterone,PF 1-09 mL under ity of , 275 00:00: the skin [place] mg/1.1 mL 00 weekly. Medical injection Branch hydroxyprog 2023-0 Yes 275mg inject 1.1 [facility] esterone,PF 1-09 mL under ity of , 275 00:00: the skin [place] mg/1.1 mL 00 weekly. Medical injection Branch hydroxyprog 2023-0 Yes [id number] 275mg inject 1.1 [facility] esterone,PF 1-09 mL under ity of , 275 00:00: the skin [place] mg/1.1 mL 00 weekly. Medical injection Branch hydroxyprog 2023-0 Yes 275mg inject 1.1 [facility] esterone,PF 1-09 mL under ity of , 275 00:00: the skin [place] mg/1.1 mL 00 weekly. Medical injection Branch hydroxyprog 2023-0 Yes [id number] 275mg inject 1.1 [facility] esterone,PF 1-09 mL under ity of , 275 00:00: the skin [place] mg/1.1 mL 00 weekly. Medical injection Branch hydroxyprog 2023-0 Yes 275mg inject 1.1 [facility] esterone,PF 1-09 mL under ity of , 275 00:00: the skin [place] mg/1.1 mL 00 weekly. Medical injection Branch hydroxyprog 2023-0 Yes [id number] 275mg inject 1.1 [facility] esterone,PF 1-09 mL under ity of , 275 00:00: the skin [place] mg/1.1 mL 00 weekly. Medical injection Branch hydroxyprog 2023-0 Yes 275mg inject 1.1 [facility] esterone,PF 1-09 mL under ity of , 275 00:00: the skin [place] mg/1.1 mL 00 weekly. Medical injection Branch hydroxyprog 2023-0 Yes [id number] 275mg inject 1.1 [facility] esterone,PF 1-09 mL under ity of , 275 00:00: the skin [place] mg/1.1 mL 00 weekly. Medical injection Branch hydroxyprog 2023-0 Yes 275mg inject 1.1 [facility] esterone,PF 1-09 mL under ity of , 275 00:00: the skin [place] mg/1.1 mL 00 weekly. Medical injection Branch hydroxyprog 2023-0 Yes [id number] 275mg inject 1.1 [facility] esterone,PF 1-09 mL under ity of , 275 00:00: the skin [place] mg/1.1 mL 00 weekly. Medical injection Branch hydroxyprog 2023-0 Yes 275mg inject 1.1 [facility] esterone,PF 1-09 mL under ity of , 275 00:00: the skin [place] mg/1.1 mL 00 weekly. Medical injection Branch hydroxyprog 2023-0 Yes [id number] 275mg inject 1.1 [facility] esterone,PF 1-09 mL under ity of , 275 00:00: the skin [place] mg/1.1 mL 00 weekly. Medical injection Branch hydroxyprog 2023-0 Yes 275mg inject 1.1 [facility] esterone,PF 1-09 mL under ity of , 275 00:00: the skin [place] mg/1.1 mL 00 weekly. Medical injection Branch hydroxyprog 2023-0 Yes [id number] 275mg inject 1.1 [facility] esterone,PF 1-09 mL under ity of , 275 00:00: the skin [place] mg/1.1 mL 00 weekly. Medical injection Branch hydroxyprog 2023-0 Yes 275mg inject 1.1 [facility] esterone,PF 1-09 mL under ity of , 275 00:00: the skin [place] mg/1.1 mL 00 weekly. Medical injection Branch hydroxyprog 2023-0 Yes [id number] 275mg inject 1.1 [facility] esterone,PF 1-09 mL under ity of , 275 00:00: the skin [place] mg/1.1 mL 00 weekly. Medical injection Branch hydroxyprog 2023-0 Yes 275mg inject 1.1 [facility] esterone,PF 1-09 mL under ity of , 275 00:00: the skin [place] mg/1.1 mL 00 weekly. Medical injection Branch hydroxyprog 2023-0 Yes [id number] 275mg inject 1.1 [facility] esterone,PF 1-09 mL under ity of , 275 00:00: the skin [place] mg/1.1 mL 00 weekly. Medical injection Branch hydroxyprog 2023-0 Yes 275mg inject 1.1 [facility] esterone,PF 1-09 mL under ity of , 275 00:00: the skin [place] mg/1.1 mL 00 weekly. Medical injection Branch hydroxyprog 2023-0 Yes [id number] 275mg inject 1.1 [facility] esterone,PF 1-09 mL under ity of , 275 00:00: the skin [place] mg/1.1 mL 00 weekly. Medical injection Branch hydroxyprog 2023-0 Yes 275mg inject 1.1 [facility] esterone,PF 1-09 mL under ity of , 275 00:00: the skin [place] mg/1.1 mL 00 weekly. Medical injection Branch hydroxyprog 2023-0 Yes [id number] 275mg inject 1.1 [facility] esterone,PF 1-09 mL under ity of , 275 00:00: the skin [place] mg/1.1 mL 00 weekly. Medical injection Branch hydroxyprog 2023-0 Yes 275mg inject 1.1 [facility] esterone,PF 1-09 mL under ity of , 275 00:00: the skin [place] mg/1.1 mL 00 weekly. Medical injection Branch hydroxyprog 2023-0 Yes [id number] 275mg inject 1.1 [facility] esterone,PF 1-09 mL under ity of , 275 00:00: the skin [place] mg/1.1 mL 00 weekly. Medical injection Branch hydroxyprog 2023-0 Yes 275mg inject 1.1 [facility] esterone,PF 1-09 mL under ity of , 275 00:00: the skin [place] mg/1.1 mL 00 weekly. Medical injection Branch hydroxyprog 2023-0 Yes [id number] 275mg inject 1.1 [facility] esterone,PF 1-09 mL under ity of , 275 00:00: the skin [place] mg/1.1 mL 00 weekly. Medical injection Branch hydroxyprog 2023-0 Yes 275mg inject 1.1 [facility] esterone,PF 1-09 mL under ity of , 275 00:00: the skin [place] mg/1.1 mL 00 weekly. Medical injection Branch hydroxyprog 2023-0 Yes [id number] 275mg inject 1.1 [facility] esterone,PF 1-09 mL under ity of , 275 00:00: the skin [place] mg/1.1 mL 00 weekly. Medical injection Branch hydroxyprog 2023-0 Yes 275mg inject 1.1 [facility] esterone,PF 1-09 mL under ity of , 275 00:00: the skin [place] mg/1.1 mL 00 weekly. Medical injection Branch hydroxyprog 2023-0 Yes [id number] 275mg inject 1.1 [facility] esterone,PF 1-09 mL under ity of , 275 00:00: the skin [place] mg/1.1 mL 00 weekly. Medical injection Branch hydroxyprog 2023-0 Yes 275mg inject 1.1 [facility] esterone,PF 1-09 mL under ity of , 275 00:00: the skin [place] mg/1.1 mL 00 weekly. Medical injection Branch hydroxyprog 2023-0 Yes [id number] 275mg inject 1.1 [facility] esterone,PF 1-09 mL under ity of , 275 00:00: the skin [place] mg/1.1 mL 00 weekly. Medical injection Branch hydroxyprog 2023-0 Yes 275mg inject 1.1 [facility] esterone,PF 1-09 mL under ity of , 275 00:00: the skin [place] mg/1.1 mL 00 weekly. Medical injection Branch hydroxyprog 2023-0 Yes [id number] 275mg inject 1.1 [facility] esterone,PF 1-09 mL under ity of , 275 00:00: the skin [place] mg/1.1 mL 00 weekly. Medical injection Branch hydroxyprog 2023-0 Yes 275mg inject 1.1 [facility] esterone,PF 1-09 mL under ity of , 275 00:00: the skin [place] mg/1.1 mL 00 weekly. Medical injection Branch hydroxyprog 2023-0 Yes [id number] 275mg inject 1.1 [facility] esterone,PF 1-09 mL under ity of , 275 00:00: the skin [place] mg/1.1 mL 00 weekly. Medical injection Branch hydroxyprog 2023-0 2023- No 275mg inject 1.1 [facility] esterone,PF 1-09 05-25 mL under ity of , 275 00:00: 00:00 the skin [place] mg/1.1 mL 00 :00 weekly. Medical injection Branch hydroxyprog 2023-0 2023- No [id number] 275mg inject 1.1 [facility] esterone,PF 1-09 05-25 mL under ity of , 275 00:00: 00:00 the skin [place] mg/1.1 mL 00 :00 weekly. Medical injection Branch hydroxyprog 2023-0 2023- No 275mg inject 1.1 [facility] esterone,PF 1-09 05-25 mL under ity of , 275 00:00: 00:00 the skin [place] mg/1.1 mL 00 :00 weekly. Medical injection Branch hydroxyprog 2023-0 2023- No [id number] 275mg inject 1.1 [facility] esterone,PF 1-09 05-25 mL under ity of , 275 00:00: 00:00 the skin [place] mg/1.1 mL 00 :00 weekly. Medical injection Branch hydroxyprog 2022-1 Yes [id number] 250mg 1 mL by [facility] Intramuscu ity o f caproate, 00:00: lar route [place] ppres, 250 00 weekly. Medica l mg/mL Branch injection hydroxyprog 2021-02 2023- No [id number] 250mg 1 mL by [facility] 01-09 Intramuscu ity of caproate, 00:00: 00:00 lar route [place] ppres, 250 00 :00 weekly. Medica l mg/mL Branch injection HYDROXYprog 2021-02 Yes Univer s est,PF,,pre 2-16 ity of g presv, 00:00: [place] 250 mg/mL 00 Medical (1 mL) Branch injection HYDROXYprog 2021-02 Yes Univer s est,PF,,pre 2-16 ity of g presv, 00:00: [place] 250 mg/mL 00 Medical (1 mL) Branch injection HYDROXYprog 2021-02 Yes Univer s est,PF,,pre 2-16 ity of g presv, 00:00: [place] 250 mg/mL 00 Medical (1 mL) Branch injection HYDROXYprog 2021-02 Yes Univer s est,PF,,pre 2-16 ity of g presv, 00:00: [place] 250 mg/mL 00 Medical (1 mL) Branch injection HYDROXYprog 2021-02 Yes Univer s est,PF,,pre 2-16 ity of g presv, 00:00: [place] 250 mg/mL 00 Medical (1 mL) Branch injection HYDROXYprog 2021-02 Yes Univer s est,PF,,pre 2-16 ity of g presv, 00:00: [place] 250 mg/mL 00 Medical (1 mL) Branch injection HYDROXYprog 2021-02 Yes Univer s est,PF,,pre 2-16 ity of g presv, 00:00: [place] 250 mg/mL 00 Medical (1 mL) Branch injection HYDROXYprog 2021-02 Yes Univer s est,PF,,pre 2-16 ity of g presv, 00:00: [place] 250 mg/mL 00 Medical (1 mL) Branch injection HYDROXYprog 2021-02 Yes Univer s est,PF,,pre 2-16 ity of g presv, 00:00: [place] 250 mg/mL 00 Medical (1 mL) Branch injection HYDROXYprog 2021-02 Yes Univer s est,PF,,pre 2-16 ity of g presv, 00:00: [place] 250 mg/mL 00 Medical (1 mL) Branch injection HYDROXYprog 2021-02 Yes Univer s est,PF,,pre 2-16 ity of g presv, 00:00: [place] 250 mg/mL 00 Medical (1 mL) Branch injection HYDROXYprog 2021-02 Yes Univer s est,PF,,pre 2-16 ity of g presv, 00:00: [place] 250 mg/mL 00 Medical (1 mL) Branch injection HYDROXYprog 2021-02 Yes Univer s est,PF,,pre 2-16 ity of g presv, 00:00: [place] 250 mg/mL 00 Medical (1 mL) Branch injection HYDROXYprog 2021-02 Yes Univer s est,PF,,pre 2-16 ity of g presv, 00:00: [place] 250 mg/mL 00 Medical (1 mL) Branch injection HYDROXYprog 2021-02 Yes Univer s est,PF,,pre 2-16 ity of g presv, 00:00: [place] 250 mg/mL 00 Medical (1 mL) Branch injection HYDROXYprog 2021-02 Yes Univer s est,PF,,pre 2-16 ity of g presv, 00:00: [place] 250 mg/mL 00 Medical (1 mL) Branch injection HYDROXYprog 2021-02 Yes Univer s est,PF,,pre 2-16 ity of g presv, 00:00: [place] 250 mg/mL 00 Medical (1 mL) Branch injection HYDROXYprog 2021-02 Yes Univer s est,PF,,pre 2-16 ity of g presv, 00:00: [place] 250 mg/mL 00 Medical (1 mL) Branch injection HYDROXYprog 2021-02 Yes Univer s est,PF,,pre 2-16 ity of g presv, 00:00: [place] 250 mg/mL 00 Medical (1 mL) Branch injection HYDROXYprog 1 Yes Univer s est,PF,,pre 2-16 ity of g presv, 00:00: [place] 250 mg/mL 00 Medical (1 mL) Branch injection HYDROXYprog 2021-02 Yes Univer s est,PF,,pre 2-16 ity of g presv, 00:00: [place] 250 mg/mL 00 Medical (1 mL) Branch injection HYDROXYprog 2021-02 Yes Univer s est,PF,,pre 2-16 ity of g presv, 00:00: [place] 250 mg/mL 00 Medical (1 mL) Branch injection HYDROXYprog 2021-02 Yes Univer s est,PF,,pre 2-16 ity of g presv, 00:00: [place] 250 mg/mL 00 Medical (1 mL) Branch injection HYDROXYprog 2021-02 Yes Univer s est,PF,,pre 2-16 ity of g presv, 00:00: [place] 250 mg/mL 00 Medical (1 mL) Branch injection HYDROXYprog 2021-02 Yes Univer s est,PF,,pre 2-16 ity of g presv, 00:00: [place] 250 mg/mL 00 Medical (1 mL) Branch injection HYDROXYprog 2021-02 Yes Univer s est,PF,,pre 2-16 ity of g presv, 00:00: [place] 250 mg/mL 00 Medical (1 mL) Branch injection HYDROXYprog 2021-02 Yes Univer s est,PF,,pre 2-16 ity of g presv, 00:00: [place] 250 mg/mL 00 Medical (1 mL) Branch injection HYDROXYprog 2021-02 Yes Univer s est,PF,,pre 2-16 ity of g presv, 00:00: [place] 250 mg/mL 00 Medical (1 mL) Branch injection HYDROXYprog 2021-02 Yes Univer s est,PF,,pre 2-16 ity of g presv, 00:00: [place] 250 mg/mL 00 Medical (1 mL) Branch injection HYDROXYprog 2021-02 Yes Univer s est,PF,,pre 2-16 ity of g presv, 00:00: [place] 250 mg/mL 00 Medical (1 mL) Branch injection HYDROXYprog 2021-02 Yes Univer s est,PF,,pre 2-16 ity of g presv, 00:00: [place] 250 mg/mL 00 Medical (1 mL) Branch injection HYDROXYprog 2021-02 2023- No Unive rs est,PF,,pre 2-16 05-25 ity of g presv, 00:00: 00:00 [place] 250 mg/mL 00 :00 Medical (1 mL) Branch injection HYDROXYprog 2021-02- No Unive rs est,PF,,pre 2-16 05-25 ity of g presv, 00:00: 00:00 [place] 250 mg/mL 00 :00 Medical (1 mL) Branch injection hydroxyprog 2021-02 Yes [id number] 250mg 1 mL by [facility] 2-15 [facility] ity o f 250 mg/mL 00:00: lar route [place] injection 00 weekly. Medical Branch hydroxyprog 2021-02 Yes [id number] 250mg 1 mL by [facility] 2-15 Intr[facility] ity o f 250 mg/mL 00:00: lar route [place] injection 00 weekly. Medical Branch hydroxyprog 2021-02- No [id number] 250mg 1 mL by [facility] 2-15 01-09 Intr[facility] ity of 250 mg/mL 00:00: 00:00 lar route [place] injection 00 :00 weekly. Medical Branch chlorhexidi 2021-02 Yes AFTER Unive rs ne 0.12 % 2-04 BRUSHING ity of mouthwash 00:00: TEETH, 00 SWISH 15ML Medical IN MOUTH Branch FOR 30 SECONDS THEN SPIT OUT TWICE DAILY chlorhexidi 2021-02 Yes AFTER Unive rs ne 0.12 % 2-04 BRUSHING ity of mouthwash 00:00: TEETH, 00 SWISH 15ML Medical IN MOUTH Branch FOR 30 SECONDS THEN SPIT OUT TWICE DAILY chlorhexidi 2021-02 Yes AFTER Unive rs ne 0.12 % 2-04 BRUSHING ity of mouthwash 00:00: TEETH, 00 SWISH 15ML Medical IN MOUTH Branch FOR 30 SECONDS THEN SPIT OUT TWICE DAILY chlorhexidi 2021-02 Yes AFTER Unive rs ne 0.12 % 2-04 BRUSHING ity of mouthwash 00:00: TEETH, 00 SWISH 15ML Medical IN MOUTH Branch FOR 30 SECONDS THEN SPIT OUT TWICE DAILY chlorhexidi 2021-02 Yes AFTER Unive rs ne 0.12 % 2-04 BRUSHING ity of mouthwash 00:00: TEETH, 00 SWISH 15ML Medical IN MOUTH Branch FOR 30 SECONDS THEN SPIT OUT TWICE DAILY chlorhexidi 2021-02 Yes AFTER Unive rs ne 0.12 % 2-04 BRUSHING ity of mouthwash 00:00: TEETH, [place] 00 SWISH 15ML Medical IN MOUTH Branch FOR 30 SECONDS THEN SPIT OUT TWICE DAILY chlorhexidi 2021-02 Yes AFTER Unive rs ne 0.12 % 2-04 BRUSHING ity of mouthwash 00:00: TEETH, [place] 00 SWISH 15ML Medical IN MOUTH Branch FOR 30 SECONDS THEN SPIT OUT TWICE DAILY chlorhexidi 2021-02 Yes AFTER Unive rs ne 0.12 % 2-04 BRUSHING ity of mouthwash 00:00: TEETH, [place] 00 SWISH 15ML Medical IN MOUTH Branch FOR 30 SECONDS THEN SPIT OUT TWICE DAILY chlorhexidi 2021-02 Yes AFTER Unive rs ne 0.12 % 2-04 BRUSHING ity of mouthwash 00:00: TEETH, [place] 00 SWISH 15ML Medical IN MOUTH Branch FOR 30 SECONDS THEN SPIT OUT TWICE DAILY chlorhexidi 2021-02 Yes AFTER Unive rs ne 0.12 % 2-04 BRUSHING ity of mouthwash 00:00: TEETH, [place] 00 SWISH 15ML Medical IN MOUTH Branch FOR 30 SECONDS THEN SPIT OUT TWICE DAILY chlorhexidi 2021-02 Yes AFTER Unive rs ne 0.12 % 2-04 BRUSHING ity of mouthwash 00:00: TEETH, 00 SWISH 15ML Medical IN MOUTH Branch FOR 30 SECONDS THEN SPIT OUT TWICE DAILY chlorhexidi 2021-02 Yes AFTER Unive rs ne 0.12 % 2-04 BRUSHING ity of mouthwash 00:00: TEETH, [place] 00 SWISH 15ML Medical IN MOUTH Branch FOR 30 SECONDS THEN SPIT OUT TWICE DAILY chlorhexidi 2021-02 Yes AFTER Unive rs ne 0.12 % 2-04 BRUSHING ity of mouthwash 00:00: TEETH, [place] 00 SWISH 15ML Medical IN MOUTH Branch FOR 30 SECONDS THEN SPIT OUT TWICE DAILY chlorhexidi 2021-02 Yes AFTER Unive rs ne 0.12 % 2-04 BRUSHING ity of mouthwash 00:00: TEETH, [place] 00 SWISH 15ML Medical IN MOUTH Branch FOR 30 SECONDS THEN SPIT OUT TWICE DAILY chlorhexidi 2021-02 Yes AFTER Unive rs ne 0.12 % 2-04 BRUSHING ity of mouthwash 00:00: TEETH, [place] 00 SWISH 15ML Medical IN MOUTH Branch FOR 30 SECONDS THEN SPIT OUT TWICE DAILY chlorhexidi 2021-02 Yes AFTER Unive rs ne 0.12 % 2-04 BRUSHING ity of mouthwash 00:00: TEETH, [place] 00 SWISH 15ML Medical IN MOUTH Branch FOR 30 SECONDS THEN SPIT OUT TWICE DAILY chlorhexidi 2021-02 Yes AFTER Unive rs ne 0.12 % 2-04 BRUSHING ity of mouthwash 00:00: TEETH, [place] 00 SWISH 15ML Medical IN MOUTH Branch FOR 30 SECONDS THEN SPIT OUT TWICE DAILY chlorhexidi 2021-02 Yes AFTER Unive rs ne 0.12 % 2-04 BRUSHING ity of mouthwash 00:00: TEETH, [place] 00 SWISH 15ML Medical IN MOUTH Branch FOR 30 SECONDS THEN SPIT OUT TWICE DAILY chlorhexidi 2021-02 Yes AFTER Unive rs ne 0.12 % 2-04 BRUSHING ity of mouthwash 00:00: TEETH, [place] 00 SWISH 15ML Medical IN MOUTH Branch FOR 30 SECONDS THEN SPIT OUT TWICE DAILY chlorhexidi 2021-02 Yes AFTER Unive rs ne 0.12 % 2-04 BRUSHING ity of mouthwash 00:00: TEETH, [place] 00 SWISH 15ML Medical IN MOUTH Branch FOR 30 SECONDS THEN SPIT OUT TWICE DAILY chlorhexidi 2021-02 Yes AFTER Unive rs ne 0.12 % 2-04 BRUSHING ity of mouthwash 00:00: TEETH, [place] 00 SWISH 15ML Medical IN MOUTH Branch FOR 30 SECONDS THEN SPIT OUT TWICE DAILY chlorhexidi 2021-02 Yes AFTER Unive rs ne 0.12 % 2-04 BRUSHING ity of mouthwash 00:00: TEETH, [place] 00 SWISH 15ML Medical IN MOUTH Branch FOR 30 SECONDS THEN SPIT OUT TWICE DAILY chlorhexidi 2021-02 Yes AFTER Unive rs ne 0.12 % 2-04 BRUSHING ity of mouthwash 00:00: TEETH, [place] 00 SWISH 15ML Medical IN MOUTH Branch FOR 30 SECONDS THEN SPIT OUT TWICE DAILY chlorhexidi 2021-02 Yes AFTER Unive rs ne 0.12 % 2-04 BRUSHING ity of mouthwash 00:00: TEETH, [place] 00 SWISH 15ML Medical IN MOUTH Branch FOR 30 SECONDS THEN SPIT OUT TWICE DAILY chlorhexidi 2021-02 Yes AFTER Unive rs ne 0.12 % 2-04 BRUSHING ity of mouthwash 00:00: TEETH, [place] 00 SWISH 15ML Medical IN MOUTH Branch FOR 30 SECONDS THEN SPIT OUT TWICE DAILY chlorhexidi 2021-02 Yes AFTER Unive rs ne 0.12 % 2-04 BRUSHING ity of mouthwash 00:00: TEETH, [place] 00 SWISH 15ML Medical IN MOUTH Branch FOR 30 SECONDS THEN SPIT OUT TWICE DAILY chlorhexidi 2021-02 Yes AFTER Unive rs ne 0.12 % 2-04 BRUSHING ity of mouthwash 00:00: TEETH, [place] 00 SWISH 15ML Medical IN MOUTH Branch FOR 30 SECONDS THEN SPIT OUT TWICE DAILY chlorhexidi 2021-02 Yes AFTER Unive rs ne 0.12 % 2-04 BRUSHING ity of mouthwash 00:00: TEETH, [place] 00 SWISH 15ML Medical IN MOUTH Branch FOR 30 SECONDS THEN SPIT OUT TWICE DAILY chlorhexidi 2021-02 Yes AFTER Unive rs ne 0.12 % 2-04 BRUSHING ity of mouthwash 00:00: TEETH, [place] 00 SWISH 15ML Medical IN MOUTH Branch FOR 30 SECONDS THEN SPIT OUT TWICE DAILY chlorhexidi 2021-02 Yes AFTER Unive rs ne 0.12 % 2-04 BRUSHING ity of mouthwash 00:00: TEETH, 00 SWISH 15ML Medical IN MOUTH Branch FOR 30 SECONDS THEN SPIT OUT TWICE DAILY chlorhexidi 2021-02 Yes AFTER Unive rs ne 0.12 % 2-04 BRUSHING ity of mouthwash 00:00: TEETH, 00 SWISH 15ML Medical IN MOUTH Branch FOR 30 SECONDS THEN SPIT OUT TWICE DAILY chlorhexidi 2021-02 Yes AFTER Unive rs ne 0.12 % 2-04 BRUSHING ity of mouthwash 00:00: TEETH, [place] 00 SWISH 15ML Medical IN MOUTH Branch FOR 30 SECONDS THEN SPIT OUT TWICE DAILY chlorhexidi 2021-02 Yes AFTER Unive rs ne 0.12 % 2-04 BRUSHING ity of mouthwash 00:00: TEETH, [place] 00 SWISH 15ML Medical IN MOUTH Branch FOR 30 SECONDS THEN SPIT OUT TWICE DAILY chlorhexidi 2021-02 Yes AFTER Unive rs ne 0.12 % 2-04 BRUSHING ity of mouthwash 00:00: TEETH, [place] 00 SWISH 15ML Medical IN MOUTH Branch FOR 30 SECONDS THEN SPIT OUT TWICE DAILY chlorhexidi 2021-02 Yes AFTER Unive rs ne 0.12 % 2-04 BRUSHING ity of mouthwash 00:00: TEETH, [place] 00 SWISH 15ML Medical IN MOUTH Branch FOR 30 SECONDS THEN SPIT OUT TWICE DAILY chlorhexidi 2021-02 Yes AFTER Unive rs ne 0.12 % 2-04 BRUSHING ity of mouthwash 00:00: TEETH, [place] 00 SWISH 15ML Medical IN MOUTH Branch FOR 30 SECONDS THEN SPIT OUT TWICE DAILY chlorhexidi 2021-02 Yes AFTER Unive rs ne 0.12 % 2-04 BRUSHING ity of mouthwash 00:00: TEETH, [place] 00 SWISH 15ML Medical IN MOUTH Branch FOR 30 SECONDS THEN SPIT OUT TWICE DAILY chlorhexidi 2021-02 Yes AFTER Unive rs ne 0.12 % 2-04 BRUSHING ity of mouthwash 00:00: TEETH, [place] 00 SWISH 15ML Medical IN MOUTH Branch FOR 30 SECONDS THEN SPIT OUT TWICE DAILY chlorhexidi 2021-02 Yes AFTER Unive rs ne 0.12 % 2-04 BRUSHING ity of mouthwash 00:00: TEETH, [place] 00 SWISH 15ML Medical IN MOUTH Branch FOR 30 SECONDS THEN SPIT OUT TWICE DAILY chlorhexidi 2021-02- No AFTER Univ ers ne 0.12 % 2-04 05-25 BRUSHING ity o f mouthwash 00:00: 00:00 TEETH, [place] 00 :00 SWISH 15ML Medical IN MOUTH Branch FOR 30 SECONDS THEN SPIT OUT TWICE DAILY chlorhexidi 2021-02- No AFTER Univ ers ne 0.12 % 2-04 05-25 BRUSHING ity o f mouthwash 00:00: 00:00 TEETH, [place] 00 :00 SWISH 15ML Medical IN MOUTH Branch FOR 30 SECONDS THEN SPIT OUT TWICE DAILY 2021-02 Yes Take by Univer s 25/iron 0-13 mouth. ity of fum/folic/d 09:26: [place] [facility] 35 Medical (-1 Branch ORAL) 2021-02 Yes Take by Univer s 25/iron 0-13 mouth. ity of fum/folic/d 09:26: [place] [facility] 35 Medical (-1 Branch ORAL) 2021-02 Yes Take by Univer s 25/iron 0-13 mouth. ity of fum/folic/d 09:26: [place] [facility] 35 Medical (-1 Branch ORAL) 2021-02 Yes Take by Univer s 25/iron 0-13 mouth. ity of fum/folic/d 09:26: [place] [facility] 35 Medical (-1 Branch ORAL) 2021-02 Yes Take by Univer s 25/iron 0-13 mouth. ity of fum/folic/d 09:26: [place] [facility] 35 Medical (-1 Branch ORAL) 2021-02 Yes Take by Univer s 25/iron 0-13 mouth. ity of fum/folic/d 09:26: [place] [id number] Medical (-1 Branch ORAL) 2021-02 Yes Take by Univer s 25/iron 0-13 mouth. ity of fum/folic/d 09:26: [place] [id number] Medical (-1 Branch ORAL) 2021-02 Yes Take by Univer s 25/iron 0-13 mouth. ity of fum/folic/d 09:26: [place] [id number] Medical (-1 Branch ORAL) 2021-02 Yes Take by Univer s 25/iron 0-13 mouth. ity of fum/folic/d 09:26: [place] [id number] Medical (-1 Branch ORAL) 2021-02 Yes Take by Univer s 25/iron 0-13 mouth. ity of fum/folic/d 09:26: [place] [id number] Medical (-1 Branch ORAL) 2021-02 Yes Take by Univer s 25/iron 0-13 mouth. ity of fum/folic/d 09:26: [place] [facility] 35 Medical (-1 Branch ORAL) 2021-02 Yes Take by Univer s 25/iron 0-13 mouth. ity of fum/folic/d 09:26: [place] [id number] Medical (-1 Branch ORAL) 2021-02 Yes Take by Univer s 25/iron 0-13 mouth. ity of fum/folic/d 09:26: [place] [facility] 35 Medical (-1 Branch ORAL) 2021-02 Yes Take by Univer s 25/iron 0-13 mouth. ity of fum/folic/d 09:26: [place] [facility] 35 Medical (-1 Branch ORAL) 2021-02 Yes Take by Univer s 25/iron 0-13 mouth. ity of fum/folic/d 09:26: [place] [facility] 35 Medical (-1 Branch ORAL) 2021-02 Yes Take by Univer s 25/iron 0-13 mouth. ity of fum/folic/d 09:26: [place] [facility] 35 Medical (-1 Branch ORAL) 2021-02 Yes Take by Univer s 25/iron 0-13 mouth. ity of fum/folic/d 09:26: [place] [facility] 35 Medical (-1 Branch ORAL) 2021-02 Yes Take by Univer s 25/iron 0-13 mouth. ity of fum/folic/d 09:26: [place] [facility] 35 Medical (-1 Branch ORAL) 2021-02 Yes Take by Univer s 25/iron 0-13 mouth. ity of fum/folic/d 09:26: [place] [facility] 35 Medical (-1 Branch ORAL) 2021-02 Yes Take by Univer s 25/iron 0-13 mouth. ity of fum/folic/d 09:26: [place] [facility] 35 Medical (-1 Branch ORAL) 2021-02 Yes Take by Univer s 25/iron 0-13 mouth. ity of fum/folic/d 09:26: [place] [facility] 35 Medical (-1 Branch ORAL) 2021-02 Yes Take by Univer s 25/iron 0-13 mouth. ity of fum/folic/d 09:26: [place] [facility] 35 Medical (-1 Branch ORAL) 2021-02 Yes Take by Univer s 25/iron 0-13 mouth. ity of fum/folic/d 09:26: [place] [facility] 35 Medical (-1 Branch ORAL) 2021-02 Yes Take by Univer s 25/iron 0-13 mouth. ity of fum/folic/d 09:26: [place] [facility] 35 Medical (-1 Branch ORAL) 2021-02 Yes Take by Univer s 25/iron 0-13 mouth. ity of fum/folic/d 09:26: [place] [facility] 35 Medical (-1 Branch ORAL) 2021-02 Yes Take by Univer s 25/iron 0-13 mouth. ity of fum/folic/d 09:26: [place] [facility] 35 Medical (-1 Branch ORAL) 2021-02 Yes Take by Univer s 25/iron 0-13 mouth. ity of fum/folic/d 09:26: [place] [facility] 35 Medical (-1 Branch ORAL) 2021-02 Yes Take by Univer s 25/iron 0-13 mouth. ity of fum/folic/d 09:26: [place] [facility] 35 Medical (-1 Branch ORAL) 2021-02 Yes Take by Univer s 25/iron 0-13 mouth. ity of fum/folic/d 09:26: [place] [facility] 35 Medical (-1 Branch ORAL) 2021-02 Yes Take by Univer s 25/iron 0-13 mouth. ity of fum/folic/d 09:26: [place] [id number] Medical (-1 Branch ORAL) 2021-02 Yes Take by Univer s 25/iron 0-13 mouth. ity of fum/folic/d 09:26: [place] [id number] Medical (-1 Branch ORAL) 2021-02 Yes Take by Univer s 25/iron 0-13 mouth. ity of fum/folic/d 09:26: [place] [id number] Medical (-1 Branch ORAL) 2021-02 Yes Take by Univer s 25/iron 0-13 mouth. ity of fum/folic/d 09:26: [place] [id number] Medical (-1 Branch ORAL) 2021-02 Yes Take by Univer s 25/iron 0-13 mouth. ity of fum/folic/d 09:26: [place] [id number] Medical (-1 Branch ORAL) 2021-02 Yes Take by Univer s 25/iron 0-13 mouth. ity of fum/folic/d 09:26: [place] [facility] 35 Medical (-1 Branch ORAL) 2021-02 Yes Take by Univer s 25/iron 0-13 mouth. ity of fum/folic/d 09:26: [place] [id number] Medical (-1 Branch ORAL) 2021-02 Yes Take by Univer s 25/iron 0-13 mouth. ity of fum/folic/d 09:26: [place] [facility] 35 Medical (-1 Branch ORAL) 2021-02 Yes Take by Univer s 25/iron 0-13 mouth. ity of fum/folic/d 09:26: [place] [facility] 35 Medical (-1 Branch ORAL) 2021-02 Yes Take by Univer s 25/iron 0-13 mouth. ity of fum/folic/d 09:26: [place] [facility] 35 Medical (-1 Branch ORAL) 2021-02 Yes Take by Univer s 25/iron 0-13 mouth. ity of fum/folic/d 09:26: [place] [facility] 35 Medical (-1 Branch ORAL) 2021-02 Yes Take by Univer s 25/iron 0-13 mouth. ity of fum/folic/d 09:26: [place] [facility] 35 Medical (-1 Branch ORAL) PROAIR HFA Yes [...] on inhaler 00 Medical Branch PROAIR HFA 0 Yes Univers 90 8-30 ity of mcg/actuati 00:00: [place] on inhaler 00 Medical Branch PROAIR HFA 0 Yes Univers 90 8-30 ity of mcg/actuati 00:00: [place] on inhaler Medical Branch PROAIR HFA Yes Univers 90 8-30 ity of mcg/actuati 00:00: [place] on inhaler Medical Branch PROAIR HFA 0 Yes Univers 90 8-30 ity of mcg/actuati 00:00: [place] on inhaler Medical Branch PROAIR HFA 0 Yes Univers 90 8-30 ity of mcg/actuati [...] [place] on inhaler Medical Branch PROAIR HFA 0 Yes Univers 90 8-30 ity of mcg/actuati 00:00: [place] on inhaler 00 Medical Branch PROAIR HFA 0 Yes Univers 90 8-30 ity of mcg/actuati 00:00: [place] on inhaler 00 Medical Branch PROAIR HFA 0 Yes Univers 90 8-30 ity of mcg/actuati 00:00: [place] on inhaler Medical Branch PROAIR HFA 0 Yes Univers 90 8-30 ity of mcg/actuati 00:00: [place] on inhaler 00 Medical Branch PROAIR HFA 2022-0 Yes Univers 90 8-30 ity of mcg/actuati [...] on inhaler 00 Medical Branch PROAIR HFA 0 2023- No Univer s 90 8-30 05-27 ity of mcg/actuati 00:00: 00:00 [place] on inhaler 00 :00 Medical Branch norgestimat 0 Yes [id number] 1{tbl} Take 1 Univers e-ethinyl 8-16 tablet by ity o f estradioL 00:00[place]TRI-SPRINT 00 the Medical EC) morning. Branch 0.18/0.215/ 0.25 mg-35 mcg (28) tablet norgestimat 0 2022- No [id number] 1{tbl} Take 1 Univers e-ethinyl 8-16 10-13 tablet by ity of estradioL 00:00: 00:00 mouth in [place] (TRI-SPRINT 00 :00 the Medical EC) morning. Branch 0.18/0.215/ 0.25 mg-35 mcg (28) tablet norgestimat 2020-02 Yes [id number] 1{tbl} Take 1 Univers e-ethinyl 1-22 tablet by ity o f estradioL 00:00: mouth [place] (ORTHO 00 daily. Medical TRI-CYCLEN, Branch 28,) 0.18/0.215/ 0.25 mg-35 mcg (28) tablet norgestimat 2020-02- No [id number] 1{tbl} Take 1 Univers e-ethinyl 03-20 10-13 tablet by ity of estradioL 00:00: 00:00 mouth [place] (ORTHO 00 :00 daily. Medical TRI-CYCLEN, Branch 28,) 0.18/0.215/ 0.25 mg-35 mcg (28) tablet Immunizations Ordered Immunization Filled Immunization Date Status Commen ts Source Name Name [facility] 2022-05-26 Completed University of 00:00:00 [facility] TDAP 2022-05-26 [facility] University [facility] 00:00:00 [facility] TDAP 2022-05-26 Completed University of 00:00:00 [facility] TDAP 2022-05-26 Completed University of 00:00:00 [facility] TDAP 2022-05-26 Completed University of 00:00:00 [facility] TDAP 2022-05-26 Completed University of 00:00:00 [facility] TDAP 2022-05-26 Completed University of 00:00:00 [facility] TDAP 2022-05-26 Completed University of 00:00:00 [facility] TDAP 2022-05-26 Completed University of 00:00:00 [facility] TDAP 2022-05-26 Completed University of 00:00:00 [facility] TDAP 2022-05-26 Completed University of 00:00:00 [facility] TDAP 2022-05-26 Completed University of 00:00:00 [facility] TDAP 2022-05-26 Completed University of 00:00:00 [facility] TDAP 2022-05-26 Completed University of 00:00:00 [facility] TDAP 2020-06-09 Completed University of 00:00:00 [facility] TDAP 2020-06-09 Completed University of 00:00:00 [facility] TDAP 2020-06-09 Completed University of 00:00:00 [facility] TDAP 2020-06-09 Completed University of 00:00:00 [facility] TDAP 2020-06-09 Completed University of 00:00:00 [facility] TDAP 2020-06-09 Completed University of 00:00:00 [place] [facility] TDAP 2020-06-09 Completed University of 00:00:00 [place] [facility] TDAP 2020-06-09 Completed University of 00:00:00 [place] [facility] TDAP 2020-06-09 Completed University of 00:00:00 [place] [facility] TDAP 2020-06-09 Completed University of 00:00:00 [place] [facility] TDAP 2020-06-09 Completed University of 00:00:00 [place] [facility] TDAP 2020-06-09 Completed University of 00:00:00 [place] [facility] TDAP 2020-06-09 Completed University of 00:00:00 [place] [facility] TDAP 2020-06-09 Completed University of 00:00:00 [place] [facility] TDAP 2020-06-09 Completed University of 00:00:00 [place] [facility] TDAP 2020-06-09 Completed University of 00:00:00 [place] [facility] TDAP 2020-06-09 Completed University of 00:00:00 [place] [facility] TDAP 2020-06-09 Completed University of 00:00:00 [place] [facility] TDAP 2020-06-09 Completed University of 00:00:00 [place] [facility] TDAP 2020-06-09 Completed University of 00:00:00 [facility] [place] [facility] TDAP 2020-06-09 Completed University of 00:00:00 [place] [facility] TDAP 2020-06-09 Completed University of 00:00:00 [place] [facility] TDAP 2020-06-09 Completed University of 00:00:00 [facility] [place] [facility] TDAP 2020-06-09 Completed University of 00:00:00 [place] [facility] TDAP 2020-06-09 Completed University of 00:00:00 [place] [facility] TDAP 2020-06-09 Completed University of 00:00:00 [place] [facility] TDAP 2020-06-09 Completed University of 00:00:00 [place] [facility] TDAP 2020-06-09 Completed University of 00:00:00 [place] [facility] TDAP 2020-06-09 Completed University of 00:00:00 [place] [facility] TDAP 2020-06-09 Completed University of 00:00:00 [place] [facility] TDAP 2020-06-09 Completed University of 00:00:00 [place] [facility] TDAP 2020-06-09 Completed University of 00:00:00 [facility] [place] Branch TDAP 2020-06-09 Completed University of 00:00:00 [place] [facility] TDAP 2020-06-09 Completed University of 00:00:00 [place] [facility] TDAP 2020-06-09 Completed University of 00:00:00 [place] [facility] TDAP 2020-06-09 Completed University of 00:00:00 [place] [facility] TDAP 2020-06-09 Completed University of 00:00:00 [place] [facility] TDAP 2020-06-09 Completed University of 00:00:00 [place] [facility] TDAP 2020-06-09 Completed University of 00:00:00 [place] [facility] TDAP 2020-06-09 Completed University of 00:00:00 [facility] [place] Branch TDAP 2020-06-09 Completed University of 00:00:00 [facility] TDAP 2020-06-09 Completed University of 00:00:00 [facility] TDAP 2020-06-09 Completed University of 00:00:00 [facility] TDAP 2020-06-09 Completed University of 00:00:00 [facility] TDAP 2020-06-09 Completed University of 00:00:00 [facility] TDAP 2020-06-09 Completed University of 00:00:00 [facility] TDAP 2020-06-09 Completed University of 00:00:00 [facility] [place] Branch TDAP 2020-06-09 Completed University of 00:00:00 [facility] TDAP 2020-06-09 Completed University of 00:00:00 [facility] TDAP 2020-06-09 Completed University of 00:00:00 [facility] TDAP 2020-06-09 Completed University of 00:00:00 [facility] TDAP 2020-06-09 Completed University of 00:00:00 [facility] Influenza Virus 2020-01-21 Completed Universit y of Vaccine Quad .5 mL IM 00:00:00 [place] [facility] 6+ MO Branch Influenza Virus 2020-01-21 Completed Universit y of Vaccine Quad .5 mL IM 00:00:00 [place] [facility] 6+ MO Branch Influenza Virus 2020-01-21 Completed Universit y of Vaccine Quad .5 mL IM 00:00:00 [place] [facility] 6+ MO Branch Influenza Virus 2020-01-21 Completed Universit y of Vaccine Quad .5 mL IM 00:00:00 [place] [facility] 6+ MO Branch Influenza Virus 2020-01-21 Completed Universit y of Vaccine Quad .5 mL IM 00:00:00 [place] [facility] 6+ MO Branch Influenza Virus 2020-01-21 Completed Universit y of Vaccine Quad .5 mL IM 00:00:00 [place] [facility] 6+ MO Branch Influenza Virus 2020-01-21 Completed Universit y of Vaccine Quad .5 mL IM 00:00:00 [place] [facility] 6+ MO Branch Influenza Virus 2020-01-21 Completed Universit y of Vaccine Quad .5 mL IM 00:00:00 [place] [facility] 6+ MO Branch Influenza Virus 2020-01-21 Completed Universit y of Vaccine Quad .5 mL IM 00:00:00 [place] [facility] 6+ MO Branch Influenza Virus 2020-01-21 Completed Universit y of Vaccine Quad .5 mL IM 00:00:00 [place] [facility] 6+ MO Branch Influenza Virus 2020-01-21 Completed Universit y of Vaccine Quad .5 mL IM 00:00:00 [place] [facility] 6+ MO Branch Influenza Virus 2020-01-21 Completed Universit y of Vaccine Quad .5 mL IM 00:00:00 [place] [facility] 6+ MO Branch Influenza Virus 2020-01-21 Completed Universit y of Vaccine Quad .5 mL IM 00:00:00 [place] [facility] 6+ MO Branch Influenza Virus 2020-01-21 Completed Universit y of Vaccine Quad .5 mL IM 00:00:00 [place] [facility] 6+ MO Branch Influenza Virus 2020-01-21 Completed Universit y of Vaccine Quad .5 mL IM 00:00:00 [place] [facility] 6+ MO Branch Influenza Virus 2020-01-21 Completed Universit y of Vaccine Quad .5 mL IM 00:00:00 [place] [facility] 6+ MO Branch Influenza Virus 2020-01-21 Completed Universit y of Vaccine Quad .5 mL IM 00:00:00 [place] [facility] 6+ MO Branch Influenza Virus 2020-01-21 Completed Universit y of Vaccine Quad .5 mL IM 00:00:00 [place] [facility] 6+ MO Branch Influenza Virus 2020-01-21 Completed Universit y of Vaccine Quad .5 mL IM 00:00:00 [place] [facility] 6[facility] MO Branch Influenza Virus 2020-01-21 Completed Universit y of Vaccine Quad .5 mL IM 00:00:00 [place] [facility] 6[facility] MO Branch Influenza Virus 2020-01-21 Completed Universit y of Vaccine Quad .5 mL IM 00:00:00 [place] [facility] 6+ MO Branch Influenza Virus 2020-01-21 Completed Universit y of Vaccine Quad .5 mL IM 00:00:00 [place] [facility] 6[facility] MO Branch Influenza Virus 2020-01-21 Completed Universit y of Vaccine Quad .5 mL IM 00:00:00 [place] [facility] 6[facility] MO Branch Influenza Virus 2020-01-21 Completed Universit y of Vaccine Quad .5 mL IM 00:00:00 [place] [facility] 6+ MO Branch Influenza Virus 2020-01-21 Completed Universit y of Vaccine Quad .5 mL IM 00:00:00 [place] [facility] 6+ MO Branch Influenza Virus 2020-01-21 Completed Universit y of Vaccine Quad .5 mL IM 00:00:00 [place] [facility] 6+ MO Branch Influenza Virus 2020-01-21 Completed Universit y of Vaccine Quad .5 mL IM 00:00:00 [place] [facility] 6+ MO Branch Influenza Virus 2020-01-21 Completed Universit y of Vaccine Quad .5 mL IM 00:00:00 [place] [facility] 6+ MO Branch Influenza Virus 2020-01-21 Completed Universit y of Vaccine Quad .5 mL IM 00:00:00 [place] [facility] 6+ MO Branch Influenza Virus 2020-01-21 Completed Universit y of Vaccine Quad .5 mL IM 00:00:00 [place] [facility] 6[facility] MO Branch Influenza Virus 2020-01-21 Completed Universit y of Vaccine Quad .5 mL IM 00:00:00 [place] [facility] 6[facility] MO Branch Influenza Virus 2020-01-21 Completed Universit y of Vaccine Quad .5 mL IM 00:00:00 [place] [facility] 6[facility] MO Branch Influenza Virus 2020-01-21 Completed Universit y of Vaccine Quad .5 mL IM 00:00:00 [place] [facility] 6+ MO Branch Influenza Virus 2020-01-21 Completed Universit y of Vaccine Quad .5 mL IM 00:00:00 [place] [facility] 6[facility] MO Branch Influenza Virus 2020-01-21 Completed Universit y of Vaccine Quad .5 mL IM 00:00:00 [place] [facility] 6+ MO Branch Influenza Virus 2020-01-21 Completed Universit y of Vaccine Quad .5 mL IM 00:00:00 [place] [facility] 6+ MO Branch Influenza Virus 2020-01-21 Completed Universit y of Vaccine Quad .5 mL IM 00:00:00 [place] [facility] 6[facility] MO Branch Influenza Virus 2020-01-21 Completed Universit y of Vaccine Quad .5 mL IM 00:00:00 [place] [facility] 6+ MO Branch Influenza Virus 2020-01-21 Completed Universit y of Vaccine Quad .5 mL IM 00:00:00 [place] [facility] 6[facility] MO Branch Influenza Virus 2020-01-21 Completed Universit y of Vaccine Quad .5 mL IM 00:00:00 [place] [facility] 6[facility] MO Branch Influenza Virus 2020-01-21 Completed [facility] 00:[facility]00 [facility] Influenza Virus 2020-01-21 Completed [facility] .5 [facility] IM 00:00:00 [facility] Influenza Virus 2020-01-21 Completed [facility] .5 mL IM 00:00:00 [facility] Influenza Virus 2020-01-21 Completed [facility] .5 mL IM 00:00:00 [facility] Influenza Virus 2020-01-21 Completed [facility] .5 mL IM 00:00:00 [facility] Influenza Virus 2020-01-21 Completed [facility] .5 mL IM 00:00:00 [facility] Influenza Virus 2020-01-21 Completed [facility] .5 mL IM 00:00:00 [facility] Influenza Virus 2020-01-21 Completed [facility] .5 mL IM 00:00:00 [facility] Influenza Virus 2020-01-21 Completed [facility] .5 mL IM 00:00:00 [facility] Influenza Virus 2020-01-21 Completed [facility] .5 mL IM 00:00:00 [facility] Influenza Virus 2020-01-21 Completed [facility] .5 mL IM 00:00:00 [facility] Influenza Virus 2020-01-21 Completed [facility] .5 mL IM 00:00:00 [facility] Meningococcal Vaccine 2018-10-18 Completed [facility] 00:00:00 [facility] TDAP 2018-10-18 Completed [facility] 00:00:00 [facility] Meningococcal B, OMV 2018-10-18 Completed [facility] 00:00:00 [facility] Meningococcal Vaccine 2018-10-18 Completed [facility] 00:00:00 [facility] TDAP 2018-10-18 Completed [facility] 00:00:00 [facility] Meningococcal B, OMV 2018-10-18 Completed [facility] 00:00:00 [facility] Meningococcal Vaccine 2018-10-18 Completed [facility] 00:00:00 [facility] TDAP 2018-10-18 Completed [facility] 00:00:00 [facility] Meningococcal B, OMV 2018-10-18 Completed [facility] 00:00:00 [facility] Meningococcal Vaccine 2018-10-18 Completed [facility] 00:00:00 [facility] TDAP 2018-10-18 Completed [facility] 00:00:00 [facility] Meningococcal B, OMV 2018-10-18 Completed [facility] 00:00:00 [facility] Meningococcal Vaccine 2018-10-18 Completed [facility] 00:00:00 [facility] TDAP 2018-10-18 Completed [facility] 00:00:00 [facility] Meningococcal B, OMV 2018-10-18 Completed [facility] 00:00:00 [facility] Meningococcal Vaccine 2018-10-18 Completed [facility] 00:00:00 [facility] TDAP 2018-10-18 Completed [facility] 00:00:00 [facility] Meningococcal B, OMV 2018-10-18 Completed [facility] 00:00:00 [facility] Meningococcal Vaccine 2018-10-18 Completed [facility] 00:00:00 [facility] TDAP 2018-10-18 Completed [facility] 00:00:00 [facility] Meningococcal B, OMV 2018-10-18 Completed [facility] 00:00:00 [facility] Meningococcal Vaccine 2018-10-18 Completed [facility] 00:00:00 [facility] TDAP 2018-10-18 Completed [facility] 00:00:00 [facility] Meningococcal B, OMV 2018-10-18 Completed [facility] 00:00:00 [facility] Meningococcal Vaccine 2018-10-18 Completed [facility] 00:00:00 [facility] TDAP 2018-10-18 Completed [facility] 00:00:00 [facility] Meningococcal B, OMV 2018-10-18 Completed [facility] 00:00:00 [facility] Meningococcal Vaccine 2018-10-18 Completed [facility] 00:00:00 [facility] TDAP 2018-10-18 Completed [facility] 00:00:00 [facility] Meningococcal B, OMV 2018-10-18 Completed [facility] 00:00:00 [facility] Meningococcal Vaccine 2018-10-18 Completed [facility] 00:00:00 [facility] TDAP 2018-10-18 Completed [facility] 00:00:00 [facility] Meningococcal B, OMV 2018-10-18 Completed [facility] 00:00:00 [facility] Meningococcal Vaccine 2018-10-18 Completed [facility] 00:00:00 [facility] TDAP 2018-10-18 Completed [facility] 00:00:00 [facility] Meningococcal B, OMV 2018-10-18 Completed [facility] 00:00:00 [facility] Meningococcal Vaccine 2018-10-18 Completed [facility] 00:00:00 [facility] TDAP 2018-10-18 Completed [facility] 00:00:00 [facility] Meningococcal B, OMV 2018-10-18 Completed [facility] 00:00:00 [facility] Meningococcal Vaccine 2018-10-18 Completed [facility] 00:00:00 [facility] TDAP 2018-10-18 Completed [facility] 00:00:00 [facility] Meningococcal B, OMV 2018-10-18 Completed [facility] 00:00:00 [facility] Meningococcal Vaccine 2018-10-18 Completed [facility] 00:00:00 [facility] TDAP 2018-10-18 Completed [facility] 00:00:00 [facility] Meningococcal B, OMV 2018-10-18 Completed [facility] 00:00:00 [facility] Meningococcal Vaccine 2018-10-18 Completed [facility] 00:00:00 [facility] TDAP 2018-10-18 Completed [facility] 00:00:00 [facility] Meningococcal B, OMV 2018-10-18 Completed [facility] 00:00:00 [facility] Meningococcal Vaccine 2018-10-18 Completed [facility] 00:00:00 [facility] TDAP 2018-10-18 Completed [facility] 00:00:00 [facility] Meningococcal B, OMV 2018-10-18 Completed [facility] 00:00:00 [facility] Meningococcal Vaccine 2018-10-18 Completed [facility] 00:00:00 [facility] TDAP 2018-10-18 Completed [facility] 00:00:00 [facility] Meningococcal B, OMV 2018-10-18 Completed [facility] 00:00:00 [facility] Meningococcal Vaccine 2018-10-18 Completed [facility] 00:00:00 [facility] TDAP 2018-10-18 Completed [facility] 00:00:00 [facility] Meningococcal B, OMV 2018-10-18 Completed [facility] 00:00:00 [facility] Meningococcal Vaccine 2018-10-18 Completed [facility] 00:00:00 [facility] TDAP 2018-10-18 Completed [facility] 00:00:00 [facility] Meningococcal B, OMV 2018-10-18 Completed [facility] 00:00:00 [facility] Meningococcal Vaccine 2018-10-18 Completed [facility] 00:00:00 [facility] TDAP 2018-10-18 Completed [facility] 00:00:00 [facility] Meningococcal B, OMV 2018-10-18 Completed [facility] 00:00:00 [facility] Meningococcal Vaccine 2018-10-18 Completed [facility] 00:00:00 [facility] TDAP 2018-10-18 Completed [facility] 00:00:00 [facility] Meningococcal B, OMV 2018-10-18 Completed [facility] 00:00:00 [facility] Meningococcal Vaccine 2018-10-18 Completed [facility] 00:00:00 [facility] TDAP 2018-10-18 Completed [facility] 00:00:00 [facility] Meningococcal B, OMV 2018-10-18 Completed [facility] 00:00:00 [facility] Meningococcal Vaccine 2018-10-18 Completed [facility] 00:00:00 [facility] TDAP 2018-10-18 Completed [facility] 00:00:00 [facility] Meningococcal B, OMV 2018-10-18 Completed [facility] 00:00:00 [facility] Meningococcal Vaccine 2018-10-18 Completed [facility] 00:00:00 [facility] TDAP 2018-10-18 Completed [facility] 00:00:00 [facility] Meningococcal B, OMV 2018-10-18 Completed [facility] 00:00:00 [facility] Meningococcal Vaccine 2018-10-18 Completed [facility] 00:00:00 [facility] TDAP 2018-10-18 Completed [facility] 00:00:00 [facility] Meningococcal B, OMV 2018-10-18 Completed [facility] 00:00:00 [facility] Meningococcal Vaccine 2018-10-18 Completed [facility] 00:00:00 [facility] TDAP 2018-10-18 Completed [facility] 00:00:00 [facility] Meningococcal B, OMV 2018-10-18 Completed [facility] 00:00:00 [facility] Meningococcal Vaccine 2018-10-18 Completed [facility] 00:00:00 [facility] TDAP 2018-10-18 Completed [facility] 00:00:00 [facility] Meningococcal B, OMV 2018-10-18 Completed [facility] 00:00:00 [facility] Meningococcal Vaccine 2018-10-18 Completed [facility] 00:00:00 [facility] TDAP 2018-10-18 Completed [facility] 00:00:00 [facility] Meningococcal B, OMV 2018-10-18 Completed [facility] 00:00:00 [facility] Meningococcal Vaccine 2018-10-18 Completed [facility] 00:00:00 [facility] TDAP 2018-10-18 Completed [facility] 00:00:00 [facility] Meningococcal B, OMV 2018-10-18 Completed [facility] 00:00:00 [facility] Meningococcal Vaccine 2018-10-18 Completed [facility] 00:00:00 [facility] TDAP 2018-10-18 Completed [facility] 00:00:00 [facility] Meningococcal B, OMV 2018-10-18 Completed [facility] 00:00:00 [facility] Meningococcal Vaccine 2018-10-18 Completed [facility] 00:00:00 [facility] TDAP 2018-10-18 Completed [facility] 00:00:00 [facility] Meningococcal B, OMV 2018-10-18 Completed [facility] of 00:00:00 [facility] Meningococcal Vaccine 2018-10-18 Completed [facility] 00:00:00 [facility] TDAP 2018-10-18 Completed [facility] 00:00:00 [facility] Meningococcal B, OMV 2018-10-18 Completed [facility] 00:00:00 [facility] Meningococcal Vaccine 2018-10-18 Completed [facility] of 00:00:00 [facility] TDAP 2018-10-18 Completed [facility] 00:00:00 [facility] Meningococcal B, OMV 2018-10-18 Completed [facility] of 00:00:00 [facility] Meningococcal Vaccine 2018-10-18 Completed [facility] of 00:00:00 [facility] TDAP 2018-10-18 Completed [facility] 00:00:00 [facility] Meningococcal B, OMV 2018-10-18 Completed [facility] 00:00:00 [facility] Meningococcal Vaccine 2018-10-18 Completed [facility] vers[facility] 00:00:00 [facility] TDAP 2018-10-18 Completed [facility] 00:00:00 [facility] Meningococcal B, OMV 2018-10-18 Completed [facility] ers[facility] of 00:00:00 [facility] Meningococcal Vaccine 2018-10-18 Completed [facility] vers[facility] of 00:00:00 [facility] TDAP 2018-10-18 Completed [facility] 00:00:00 [facility] Meningococcal B, OMV 2018-10-18 Completed [facility] ers[facility] of 00:00:00 [facility] Meningococcal Vaccine 2018-10-18 Completed [facility] versity of 00:00:00 [facility] TDAP 2018-10-18 Completed [facility] 00:00:00 [facility] Meningococcal B, OMV 2018-10-18 Completed [facility] 00:00:00 [facility] Meningococcal 2018-10-18 Completed [facility] Polysaccharide 00:00:00 [place] [facility] (groups A, C, Y and Branc h W-135) conjugate vaccine (MCV4P) Meningococcal Vaccine 2018-10-18 Completed [facility] 00:00:00 [facility] TDAP 2018-10-18 Completed [facility] 00:00:00 [facility] Meningococcal B, OMV 2018-10-18 Completed [facility] 00:00:00 [facility] Meningococcal 2018-10-18 Completed [facility] Polysaccharide 00:00:00 [place] [facility] (groups A, C, Y and Branc h W-135) conjugate vaccine (MCV4P) Meningococcal Vaccine 2018-10-18 Completed [facility] vers[facility] 00:00:00 [facility] TDAP 2018-10-18 Completed [facility] 00:00:00 [facility] Meningococcal B, OMV 2018-10-18 Completed [facility] ers[facility] of 00:00:00 [facility] Meningococcal 2018-10-18 Completed [facility] Polysaccharide 00:00:00 [facility] (groups A, C, Y and Branc h W-135) conjugate vaccine (MCV4P) Meningococcal Vaccine 2018-10-18 Completed [facility] 00:00:00 [facility] TDAP 2018-10-18 Completed [facility] 00:00:00 [facility] Meningococcal B, OMV 2018-10-18 Completed [facility] 00:00:00 [facility] Meningococcal 2018-10-18 Completed [facility] Polysaccharide 00:00:00 [place] [facility] (groups A, C, Y and Branc h W-135) conjugate vaccine (MCV4P) Meningococcal Vaccine 2018-10-18 Completed [facility] 00:00:00 [facility] TDAP 2018-10-18 Completed [facility] 00:00:00 [facility] Meningococcal B, OMV 2018-10-18 Completed [facility] 00:00:00 [facility] Meningococcal 2018-10-18 Completed [facility] Polysaccharide 00:00:00 [place] [facility] (groups A, C, Y and Branc h W-135) conjugate vaccine (MCV4P) Meningococcal Vaccine 2018-10-18 Completed [facility] 00:00:00 [facility] TDAP 2018-10-18 Completed [facility] 00:00:00 [facility] Meningococcal B, OMV 2018-10-18 Completed [facility] of 00:00:00 [facility] Meningococcal 2018-10-18 Completed [facility] Polysaccharide 00:00:00 [place] [facility] (groups A, C, Y and Branc h W-135) conjugate vaccine (MCV4P) Meningococcal Vaccine 2018-10-18 Completed [facility] 00:00:00 [facility] TDAP 2018-10-18 Completed [facility] 00:00:00 [facility] Meningococcal B, OMV 2018-10-18 Completed [facility] 00:00:00 [facility] Meningococcal 2018-10-18 Completed [facility] Polysaccharide 00:00:00 [place] [facility] (groups A, C, Y and Branc h W-135) conjugate vaccine (MCV4P) Meningococcal Vaccine 2018-10-18 Completed [facility] vers[facility] of 00:00:00 [facility] TDAP 2018-10-18 Completed [facility] 00:00:00 [facility] Meningococcal B, OMV 2018-10-18 Completed [facility] 00:00:00 [facility] Meningococcal 2018-10-18 Completed [facility] Polysaccharide 00:00:00 [place] [facility] (groups A, C, Y and Branc h W-135) conjugate vaccine (MCV4P) Meningococcal Vaccine 2018-10-18 Completed [facility] 00:00:00 [facility] TDAP 2018-10-18 Completed [facility] 00:00:00 [facility] Meningococcal B, OMV 2018-10-18 Completed [facility] 00:00:00 [facility] Meningococcal 2018-10-18 Completed [facility] Polysaccharide 00:00:00 [place] [facility] (groups A, C, Y and Branc h W-135) conjugate vaccine (MCV4P) Meningococcal Vaccine 2018-10-18 Completed [facility] 00:00:00 [facility] TDAP 2018-10-18 Completed [facility] 00:00:00 [facility] Meningococcal B, OMV 2018-10-18 Completed [facility] of 00:00:00 [facility] Meningococcal 2018-10-18 Completed [facility] Polysaccharide 00:00:00 [place] [facility] (groups A, C, Y and Branc h W-135) conjugate vaccine (MCV4P) Meningococcal Vaccine 2018-10-18 Completed [facility] 00:00:00 [facility] TDAP 2018-10-18 Completed [facility] 00:00:00 [facility] Meningococcal B, OMV 2018-10-18 Completed [facility] 00:00:00 [facility] Meningococcal 2018-10-18 Completed [facility] Polysaccharide 00:00:00 [place] [facility] (groups A, C, Y and Branc h W-135) conjugate vaccine (MCV4P) Meningococcal Vaccine 2018-10-18 Completed [facility] 00:00:00 [facility] TDAP 2018-10-18 Completed [facility] 00:00:00 [facility] Meningococcal B, OMV 2018-10-18 Completed [facility] ers[facility] of 00:00:00 [facility] Meningococcal 2018-10-18 Completed [facility] Polysaccharide 00:00:00 [place] [facility] (groups A, C, Y and Branc h W-135) conjugate vaccine (MCV4P) Meningococcal Vaccine 2018-10-18 Completed [facility] 00:00:00 [facility] TDAP 2018-10-18 Completed [facility] 00:00:00 [facility] Meningococcal B, OMV 2018-10-18 Completed [facility] 00:00:00 [facility] Meningococcal 2018-10-18 Completed [facility] Polysaccharide 00:00:00 [place] [facility] (groups A, C, Y and Branc h W-135) conjugate vaccine (MCV4P) Meningococcal Vaccine 2018-10-18 Completed [facility] 00:00:00 [facility] TDAP 2018-10-18 Completed [facility] 00:00:00 [facility] Meningococcal B, OMV 2018-10-18 Completed [facility] of 00:00:00 [facility] Meningococcal 2018-10-18 Completed [facility] Polysaccharide 00:00:00 [place] [facility] (groups A, C, Y and Branc h W-135) conjugate vaccine (MCV4P) Meningococcal Vaccine 2018-10-18 Completed [facility] 00:00:00 [facility] TDAP 2018-10-18 Completed [facility] 00:00:00 [facility] Meningococcal B, OMV 2018-10-18 Completed [facility] ers[facility] of 00:00:00 [facility] Meningococcal 2018-10-18 Completed [facility] Polysaccharide 00:00:00 [place] [facility] (groups A, C, Y and Branc h W-135) conjugate vaccine (MCV4P) DTAP 2006-10-25 Completed [facility] 00:00:00 [facility] Hepatitis A Adult 2006-10-25 Completed [facility] 00:00:00 [facility] Polio (IPV/OPV) 2006-10-25 Completed [facility] 00:00:00 [facility] DTAP 2006-10-25 Completed [facility] 00:00:00 [facility] Hepatitis A Adult 2006-10-25 Completed [facility] 00:00:00 [facility] Polio (IPV/OPV) 2006-10-25 Completed [facility] 00:00:00 [facility] DTAP 2006-10-25 Completed [facility] 00:00:00 [facility] Hepatitis A Adult 2006-10-25 Completed [facility] 00:00:00 [facility] Polio (IPV/OPV) 2006-10-25 Completed [facility] 00:00:00 [facility] DTAP 2006-10-25 Completed [facility] 00:00:00 [facility] Hepatitis A Adult 2006-10-25 Completed [facility] 00:00:00 [facility] Polio (IPV/OPV) 2006-10-25 Completed [facility] 00:00:00 [facility] DTAP 2006-10-25 Completed [facility] 00:00:00 [facility] Hepatitis A Adult 2006-10-25 Completed [facility] 00:00:00 [facility] Polio (IPV/OPV) 2006-10-25 Completed [facility] 00:00:00 [facility] DTAP 2006-10-25 Completed [facility] 00:00:00 [facility] Hepatitis A Adult 2006-10-25 Completed [facility] 00:00:00 [facility] Polio (IPV/OPV) 2006-10-25 Completed [facility] 00:00:00 [facility] DTAP 2006-10-25 Completed [facility] 00:00:00 [facility] Hepatitis A Adult 2006-10-25 Completed [facility] 00:00:00 [facility] Polio (IPV/OPV) 2006-10-25 Completed [facility] 00:00:00 [facility] DTAP 2006-10-25 Completed [facility] 00:00:00 [facility] Hepatitis A Adult 2006-10-25 Completed [facility] 00:00:00 [facility] Polio (IPV/OPV) 2006-10-25 Completed [facility] 00:00:00 [facility] DTAP 2006-10-25 Completed [facility] 00:00:00 [facility] Hepatitis A Adult 2006-10-25 Completed [facility] 00:00:00 [facility] Polio (IPV/OPV) 2006-10-25 Completed [facility] 00:00:00 [facility] DTAP 2006-10-25 Completed [facility] 00:00:00 [facility] Hepatitis A Adult 2006-10-25 Completed [facility] of 00:00:00 [facility] Polio (IPV/OPV) 2006-10-25 Completed [facility] 00:00:00 [facility] DTAP 2006-10-25 Completed [facility] 00:00:00 [facility] Hepatitis A Adult 2006-10-25 Completed [facility] 00:00:00 [facility] Polio (IPV/OPV) 2006-10-25 Completed [facility] 00:00:00 [facility] DTAP 2006-10-25 Completed [facility] 00:00:00 [facility] Hepatitis A Adult 2006-10-25 Completed [facility] 00:00:00 [facility] Polio (IPV/OPV) 2006-10-25 Completed [facility] 00:00:00 [facility] DTAP 2006-10-25 Completed [facility] 00:00:00 [facility] Hepatitis A Adult 2006-10-25 Completed [facility] of 00:00:00 [facility] Polio (IPV/OPV) 2006-10-25 Completed [facility] 00:00:00 [facility] [place] DTAP 2006-10-25 Completed [facility] 00:00:00 [facility] Hepatitis A Adult 2006-10-25 Completed [facility] 00:00:00 [facility] Polio (IPV/OPV) 2006-10-25 Completed [facility] 00:00:00 [facility] [place] DTAP 2006-10-25 Completed [facility] 00:00:00 [facility] Hepatitis A Adult 2006-10-25 Completed [facility] 00:00:00 [facility] Polio (IPV/OPV) 2006-10-25 Completed [facility] 00:00:00 [facility] DTAP 2006-10-25 Completed [facility] 00:00:00 [facility] Hepatitis A Adult 2006-10-25 Completed [facility] 00:00:00 [facility] Polio (IPV/OPV) 2006-10-25 Completed [facility] 00:00:00 [facility] [place] DTAP 2006-10-25 Completed [facility] 00:00:00 [facility] Hepatitis A Adult 2006-10-25 Completed [facility] 00:00:00 [facility] Polio (IPV/OPV) 2006-10-25 Completed [facility] 00:00:00 [facility] DTAP 2006-10-25 Completed [facility] 00:00:00 [facility] Hepatitis A Adult 2006-10-25 Completed [facility] 00:00:00 [facility] Polio (IPV/OPV) 2006-10-25 Completed [facility] 00:00:00 [facility] DTAP 2006-10-25 Completed [facility] 00:00:00 [facility] Hepatitis A Adult 2006-10-25 Completed [facility] 00:00:00 [facility] Polio (IPV/OPV) 2006-10-25 Completed [facility] 00:00:00 [facility] DTAP 2006-10-25 Completed [facility] 00:00:00 [facility] Hepatitis A Adult 2006-10-25 Completed [facility] 00:00:00 [facility] Polio (IPV/OPV) 2006-10-25 Completed [facility] 00:00:00 [facility] DTAP 2006-10-25 Completed [facility] 00:00:00 [facility] Hepatitis A Adult 2006-10-25 Completed [facility] 00:00:00 [facility] Polio (IPV/OPV) 2006-10-25 Completed [facility] 00:00:00 [facility] DTAP 2006-10-25 Completed [facility] 00:00:00 [facility] Hepatitis A Adult 2006-10-25 Completed [facility] 00:00:00 [facility] Polio (IPV/OPV) 2006-10-25 Completed [facility] 00:00:00 [facility] DTAP 2006-10-25 Completed [facility] 00:00:00 [facility] Hepatitis A Adult 2006-10-25 Completed [facility] 00:00:00 [facility] Polio (IPV/OPV) 2006-10-25 Completed [facility] 00:00:00 [facility] DTAP 2006-10-25 Completed [facility] 00:00:00 [facility] Hepatitis A Adult 2006-10-25 Completed [facility] 00:00:00 [facility] Polio (IPV/OPV) 2006-10-25 Completed [facility] 00:00:00 [facility] DTAP 2006-10-25 Completed [facility] 00:00:00 [facility] Hepatitis A Adult 2006-10-25 Completed [facility] 00:00:00 [facility] Polio (IPV/OPV) 2006-10-25 Completed [facility] 00:00:00 [facility] DTAP 2006-10-25 Completed [facility] 00:00:00 [facility] Hepatitis A Adult 2006-10-25 Completed [facility] 00:00:00 [facility] Polio (IPV/OPV) 2006-10-25 Completed [facility] 00:00:00 [facility] DTAP 2006-10-25 Completed [facility] 00:00:00 [facility] Hepatitis A Adult 2006-10-25 Completed [facility] 00:[facility]:00 [facility] Polio (IPV/OPV) 2006-10-25 Completed [facility] 00:00:00 [facility] DTAP 2006-10-25 Completed [facility] 00:00:00 [facility] Hepatitis A Adult 2006-10-25 Completed [facility] 00:00:00 [facility] Polio (IPV/OPV) 2006-10-25 Completed [facility] 00:00:00 [facility] DTAP 2006-10-25 Completed [facility] 00:00:00 [facility] Hepatitis A Adult 2006-10-25 Completed [facility] 00:00:00 [facility] Polio (IPV/OPV) 2006-10-25 Completed [facility] 00:00:00 [facility] DTAP 2006-10-25 Completed [facility] 00:00:00 [facility] Hepatitis A Adult 2006-10-25 Completed [facility] 00:00:00 [facility] Polio (IPV/OPV) 2006-10-25 Completed [facility] 00:00:00 [facility] DTAP 2006-10-25 Completed [facility] 00:00:00 [facility] Hepatitis A Adult 2006-10-25 Completed [facility] 00:00:00 [facility] Polio (IPV/OPV) 2006-10-25 Completed [facility] 00:00:00 [facility] DTAP 2006-10-25 Completed [facility] 00:00:00 [facility] Hepatitis A Adult 2006-10-25 Completed [facility] 00:00:00 [facility] Polio (IPV/OPV) 2006-10-25 Completed [facility] 00:00:00 [facility] DTAP 2006-10-25 Completed [facility] 00:00:00 [facility] Hepatitis A Adult 2006-10-25 Completed [facility] 00:00:00 [facility] Polio (IPV/OPV) 2006-10-25 Completed [facility] 00:00:00 [facility] DTAP 2006-10-25 Completed [facility] 00:00:00 [facility] Hepatitis A Adult 2006-10-25 Completed [facility] 00:00:00 [facility] Polio (IPV/OPV) 2006-10-25 Completed [facility] 00:00:00 [facility] DTAP 2006-10-25 Completed [facility] 00:00:00 [facility] Hepatitis A Adult 2006-10-25 Completed [facility] 00:00:00 [facility] Polio (IPV/OPV) 2006-10-25 Completed [facility] 00:00:00 [facility] DTAP 2006-10-25 Completed [facility] 00:00:00 [facility] Hepatitis A Adult 2006-10-25 Completed [facility] 00:00:00 [facility] Polio (IPV/OPV) 2006-10-25 Completed [facility] 00:00:00 [facility] DTAP 2006-10-25 Completed [facility] 00:00:00 [facility] Hepatitis A Adult 2006-10-25 Completed [facility] 00:00:00 [facility] Polio (IPV/OPV) 2006-10-25 Completed [facility] 00:00:00 [facility] DTAP 2006-10-25 Completed [facility] 00:00:00 [facility] Hepatitis A Adult 2006-10-25 Completed [facility] 00:00:00 [facility] Polio (IPV/OPV) 2006-10-25 Completed [facility] 00:00:00 [facility] DTaP, Unspecified 2006-10-25 Completed [facility] Formulation 00:00:00 [facility] HEPA,NOS 2006-10-25 Completed [facility] 00:00:00 [facility] IPV 2006-10-25 Completed [facility] 00:00:00 [facility] DTAP 2006-10-25 Completed [facility] 00:00:00 [facility] Hepatitis A Adult 2006-10-25 Completed [facility] 00:00:00 [facility] Polio (IPV/OPV) 2006-10-25 Completed [facility] 00:00:00 [facility] DTaP, Unspecified 2006-10-25 Completed [facility] Formulation 00:00:00 [facility] HEPA,NOS 2006-10-25 Completed [facility] 00:00:00 [facility] IPV 2006-10-25 Completed [facility] 00:00:00 [facility] DTAP 2006-10-25 Completed [facility] 00:00:00 [facility] Hepatitis A Adult 2006-10-25 Completed [facility] 00:00:00 [facility] Polio (IPV/OPV) 2006-10-25 Completed [facility] 00:00:00 [facility] DTaP, Unspecified 2006-10-25 Completed [facility] Formulation 00:00:00 [facility] HEPA,NOS 2006-10-25 Completed [facility] 00:00:00 [facility] IPV 2006-10-25 Completed [facility] 00:00:00 [facility] DTAP 2006-10-25 Completed [facility] 00:00:00 [facility] Hepatitis A Adult 2006-10-25 Completed [facility] 00:00:00 [facility] Polio (IPV/OPV) 2006-10-25 Completed [facility] 00:00:00 [facility] DTaP, Unspecified 2006-10-25 Completed [facility] Formulation 00:00:00 [facility] HEPA,NOS 2006-10-25 Completed [facility] 00:00:00 [facility] IPV 2006-10-25 Completed [facility] 00:00:00 [facility] DTAP 2006-10-25 Completed [facility] 00:00:00 [facility] Hepatitis A Adult 2006-10-25 Completed [facility] 00:00:00 [facility] Polio (IPV/OPV) 2006-10-25 Completed [facility] 00:00:00 [facility] DTaP, Unspecified 2006-10-25 Completed [facility] Formulation 00:00:00 [facility] HEPA,NOS 2006-10-25 Completed [facility] 00:00:00 [facility] IPV 2006-10-25 Completed [facility] 00:00:00 [facility] DTAP 2006-10-25 Completed [facility] 00:00:00 [facility] Hepatitis A Adult 2006-10-25 Completed [facility] 00:00:00 [facility] Polio (IPV/OPV) 2006-10-25 Completed [facility] 00:00:00 [facility] DTaP, Unspecified 2006-10-25 Completed [facility] Formulation 00:00:00 [facility] HEPA,NOS 2006-10-25 Completed [facility] 00:00:00 [facility] IPV 2006-10-25 Completed [facility] 00:00:00 [facility] DTAP 2006-10-25 Completed [facility] 00:00:00 [facility] Hepatitis A Adult 2006-10-25 Completed [facility] 00:00:00 [facility] Polio (IPV/OPV) 2006-10-25 Completed [facility] 00:00:00 [facility] DTaP, Unspecified 2006-10-25 Completed [facility] Formulation 00:00:00 [facility] HEPA,NOS 2006-10-25 Completed [facility] 00:00:00 [facility] IPV 2006-10-25 Completed [facility] 00:00:00 [facility] DTAP 2006-10-25 Completed [facility] 00:00:00 [facility] Hepatitis A Adult 2006-10-25 Completed [facility] 00:00:00 [facility] Polio (IPV/OPV) 2006-10-25 Completed [facility] 00:00:00 [facility] DTaP, Unspecified 2006-10-25 Completed [facility] Formulation 00:00:00 [facility] HEPA,NOS 2006-10-25 Completed [facility] 00:00:00 [facility] IPV 2006-10-25 Completed [facility] 00:00:00 [facility] DTAP 2006-10-25 Completed [facility] 00:00:00 [facility] Hepatitis A Adult 2006-10-25 Completed [facility] 00:00:00 [facility] Polio (IPV/OPV) 2006-10-25 Completed [facility] 00:00:00 [facility] DTaP, Unspecified 2006-10-25 Completed [facility] Formulation 00:00:00 [facility] HEPA,NOS 2006-10-25 Completed [facility] 00:00:00 [facility] IPV 2006-10-25 Completed [facility] 00:00:00 [facility] DTAP 2006-10-25 Completed [facility] 00:00:00 [facility] Hepatitis A Adult 2006-10-25 Completed [facility] 00:00:00 [facility] Polio (IPV/OPV) 2006-10-25 Completed [facility] 00:00:00 [facility] DTaP, Unspecified 2006-10-25 Completed [facility] Formulation 00:00:00 [facility] HEPA,NOS 2006-10-25 Completed [facility] 00:00:00 [facility] IPV 2006-10-25 Completed [facility] 00:00:00 [facility] DTAP 2006-10-25 Completed [facility] 00:00:00 [facility] Hepatitis A Adult 2006-10-25 Completed [facility] 00:00:00 [facility] Polio (IPV/OPV) 2006-10-25 Completed [facility] 00:00:00 [facility] DTaP, Unspecified 2006-10-25 Completed [facility] Formulation 00:00:00 [facility] HEPA,NOS 2006-10-25 Completed [facility] 00:00:00 [facility] IPV 2006-10-25 Completed [facility] 00:00:00 [facility] DTAP 2006-10-25 Completed [facility] 00:00:00 [facility] Hepatitis A Adult 2006-10-25 Completed [facility] 00:00:00 [facility] Polio (IPV/OPV) 2006-10-25 Completed [facility] 00:00:00 [facility] DTaP, Unspecified 2006-10-25 Completed [facility] Formulation 00:00:00 [facility] HEPA,NOS 2006-10-25 Completed [facility] 00:00:00 [facility] IPV 2006-10-25 Completed [facility] 00:00:00 [facility] DTAP 2006-10-25 Completed [facility] 00:00:00 [facility] Hepatitis A Adult 2006-10-25 Completed [facility] 00:00:00 [facility] Polio (IPV/OPV) 2006-10-25 Completed [facility] 00:00:00 [facility] DTaP, Unspecified 2006-10-25 Completed [facility] Formulation 00:00:00 [facility] HEPA,NOS 2006-10-25 Completed [facility] 00:00:00 [facility] IPV 2006-10-25 Completed [facility] 00:00:00 [facility] DTAP 2006-10-25 Completed [facility] 00:00:00 [facility] Hepatitis A Adult 2006-10-25 Completed [facility] 00:00:00 [facility] Polio (IPV/OPV) 2006-10-25 Completed [facility] 00:00:00 [facility] DTaP, Unspecified 2006-10-25 Completed [facility] Formulation 00:00:00 [facility] HEPA,NOS 2006-10-25 Completed [facility] 00:00:00 [facility] IPV 2006-10-25 Completed [facility] 00:00:00 [facility] DTAP 2006-10-25 Completed [facility] 00:00:00 [facility] Hepatitis A Adult 2006-10-25 Completed [facility] 00:00:00 [facility] Polio (IPV/OPV) 2006-10-25 Completed [facility] 00:00:00 [facility] DTaP, Unspecified 2006-10-25 Completed [facility] Formulation 00:00:00 [facility] HEPA,NOS 2006-10-25 Completed [facility] 00:00:00 [facility] IPV 2006-10-25 Completed [facility] 00:00:00 [facility] DTAP 2005-09-20 Completed [facility] 00:00:00 [facility] HIB 3 Dose Schedule 2005-09-20 Completed [facility] rs[facility] 00:00:00 [facility] Hepatitis A Adult 2005-09-20 Completed [facility] 00:00:00 [facility] Hep B, Adol or Pedi 2005-09-20 Completed [facility]ive rsity of Dosage 00:00:00 [facility] Pneumococcal 13 2005-09-20 Completed [facility] Conjugate, PCV13 00:00:00 [facility] dical (Prevnar 13) Branch Polio (IPV/OPV) 2005-09-20 Completed [facility] 00:00:00 [facility] DTAP 2005-09-20 Completed [facility] 00:00:00 [facility] HIB 3 Dose Schedule 2005-09-20 Completed [facility] rs[facility] of 00:00:00 [facility] Hepatitis A Adult 2005-09-20 Completed [facility] 00:00:00 [facility] Hep B, Adol or Pedi 2005-09-20 Completed [facility]ive rsity of Dosage 00:00:00 [facility] Pneumococcal 13 2005-09-20 Completed [facility] Conjugate, PCV13 00:00:00 [facility] dical (Prevnar 13) Branch Polio (IPV/OPV) 2005-09-20 Completed [facility] 00:00:00 [facility] DTAP 2005-09-20 Completed [facility] 00:00:00 [facility] HIB 3 Dose Schedule 2005-09-20 Completed [facility]ive rs[facility] of 00:00:00 [facility] Hepatitis A Adult 2005-09-20 Completed [facility] 00:00:00 [facility] Hep B, Adol or Pedi 2005-09-20 Completed Unive rsity of Dosage 00:00:00 [facility] Pneumococcal 13 2005-09-20 Completed [facility] Conjugate, PCV13 00:00:00 [facility] dical (Prevnar 13) Branch Polio (IPV/OPV) 2005-09-20 Completed [facility] 00:00:00 [facility] DTAP 2005-09-20 Completed [facility] 00:00:00 [facility] HIB 3 Dose Schedule 2005-09-20 Completed [facility] rs[facility] of 00:00:00 [facility] Hepatitis A Adult 2005-09-20 Completed [facility] 00:00:00 [facility] Hep B, Adol or Pedi 2005-09-20 Completed [facility]ive rsity of Dosage 00:00:00 [facility] Pneumococcal 13 2005-09-20 Completed [facility] Conjugate, PCV13 00:00:00 [facility] dical (Prevnar 13) Branch Polio (IPV/OPV) 2005-09-20 Completed [facility] 00:00:00 [facility] DTAP 2005-09-20 Completed [facility] 00:00:00 [facility] HIB 3 Dose Schedule 2005-09-20 Completed [facility] rsity of 00:00:00 [facility] Hepatitis A Adult 2005-09-20 Completed [facility] 00:00:00 [facility] Hep B, Adol or Pedi 2005-09-20 Completed [facility]ive rsity of Dosage 00:00:00 [facility] Pneumococcal 13 2005-09-20 Completed [facility] Conjugate, PCV13 00:00:00 [facility] dical (Prevnar 13) Branch Polio (IPV/OPV) 2005-09-20 Completed [facility] 00:00:00 [facility] DTAP 2005-09-20 Completed [facility] 00:00:00 [facility] HIB 3 Dose Schedule 2005-09-20 Completed [facility] rs[facility] of 00:00:00 [facility] Hepatitis A Adult 2005-09-20 Completed [facility] 00:00:00 [facility] Hep B, Adol or Pedi 2005-09-20 Completed [facility]ive rsity of Dosage 00:00:00 [facility] Pneumococcal 13 2005-09-20 Completed [facility] Conjugate, PCV13 00:00:00 [facility] dical (Prevnar 13) Branch Polio (IPV/OPV) 2005-09-20 Completed [facility] 00:00:00 [facility] DTAP 2005-09-20 Completed [facility] 00:00:00 [facility] HIB 3 Dose Schedule 2005-09-20 Completed [facility] rsity of 00:00:00 [facility] Hepatitis A Adult 2005-09-20 Completed [facility] 00:00:00 [facility] Hep B, Adol or Pedi 2005-09-20 Completed [facility]ive rsity of Dosage 00:00:00 [facility] Pneumococcal 13 2005-09-20 Completed [facility] Conjugate, PCV13 00:00:00 [facility] dical (Prevnar 13) Branch Polio (IPV/OPV) 2005-09-20 Completed [facility] 00:00:00 [facility] DTAP 2005-09-20 Completed [facility] 00:00:00 [facility] HIB 3 Dose Schedule 2005-09-20 Completed [facility] rsity of 00:00:00 [facility] Hepatitis A Adult 2005-09-20 Completed [facility] 00:00:00 [facility] Hep B, Adol or Pedi 2005-09-20 Completed [facility]ive rsity of Dosage 00:00:00 [facility] Pneumococcal 13 2005-09-20 Completed [facility] of Conjugate, PCV13 00:00:00 [facility] dical (Prevnar 13) Branch Polio (IPV/OPV) 2005-09-20 Completed [facility] 00:00:00 [facility] DTAP 2005-09-20 Completed [facility] 00:00:00 [facility] HIB 3 Dose Schedule 2005-09-20 Completed [facility] rsity of 00:00:00 [facility] Hepatitis A Adult 2005-09-20 Completed [facility] 00:00:00 [facility] Hep B, Adol or Pedi 2005-09-20 Completed [facility]ive rsity of Dosage 00:00:00 [facility] Pneumococcal 13 2005-09-20 Completed [facility] Conjugate, PCV13 00:00:00 [facility] dical (Prevnar 13) Branch Polio (IPV/OPV) 2005-09-20 Completed [facility] 00:00:00 [facility] DTAP 2005-09-20 Completed [facility] 00:00:00 [facility] HIB 3 Dose Schedule 2005-09-20 Completed [facility] rs[facility] of 00:00:00 [facility] Hepatitis A Adult 2005-09-20 Completed [facility] 00:00:00 [facility] Hep B, Adol or Pedi 2005-09-20 Completed [facility] rsity of Dosage 00:00:00 [facility] Pneumococcal 13 2005-09-20 Completed [facility] Conjugate, PCV13 00:00:00 [facility] dical (Prevnar 13) Branch Polio (IPV/OPV) 2005-09-20 Completed [facility] 00:00:00 [facility] DTAP 2005-09-20 Completed [facility] 00:00:00 [facility] HIB 3 Dose Schedule 2005-09-20 Completed [facility] rs[facility] of 00:00:00 [facility] Hepatitis A Adult 2005-09-20 Completed [facility] 00:00:00 [facility] Hep B, Adol or Pedi 2005-09-20 Completed [facility] rs[facility] of Dosage 00:00:00 [facility] Pneumococcal 13 2005-09-20 Completed [facility] Conjugate, PCV13 00:00:00 [facility] dical (Prevnar 13) Branch Polio (IPV/OPV) 2005-09-20 Completed [facility] 00:00:00 [facility] DTAP 2005-09-20 Completed [facility] 00:00:00 [facility] HIB 3 Dose Schedule 2005-09-20 Completed [facility] rsity of 00:00:00 [facility] Hepatitis A Adult 2005-09-20 Completed [facility] 00:00:00 [facility] Hep B, Adol or Pedi 2005-09-20 Completed [facility] rs[facility] of Dosage 00:00:00 [facility] Pneumococcal 13 2005-09-20 Completed [facility] Conjugate, PCV13 00:00:00 [facility] dical (Prevnar 13) Branch Polio (IPV/OPV) 2005-09-20 Completed [facility] 00:00:00 [facility] DTAP 2005-09-20 Completed [facility] 00:00:00 [facility] HIB 3 Dose Schedule 2005-09-20 Completed [facility] rsity of 00:00:00 [facility] Hepatitis A Adult 2005-09-20 Completed [facility] 00:00:00 [facility] Hep B, Adol or Pedi 2005-09-20 Completed [facility] rsity of Dosage 00:00:00 [facility] Pneumococcal 13 2005-09-20 Completed [facility] Conjugate, PCV13 00:00:00 [facility]ical (Prevnar 13) Branch Polio (IPV/OPV) 2005-09-20 Completed [facility] 00:00:00 [facility] DTAP 2005-09-20 Completed [facility] 00:00:00 [facility] HIB 3 Dose Schedule 2005-09-20 Completed [facility] rs[facility] of 00:00:00 [facility] Hepatitis A Adult 2005-09-20 Completed [facility] 00:00:00 [facility] Hep B, Adol or Pedi 2005-09-20 Completed [facility] rsity of Dosage 00:00:00 [facility] Pneumococcal 13 2005-09-20 Completed [facility] Conjugate, PCV13 00:00:00 [facility] dical (Prevnar 13) Branch Polio (IPV/OPV) 2005-09-20 Completed [facility] 00:00:00 [facility] DTAP 2005-09-20 Completed [facility] 00:00:00 [facility] HIB 3 Dose Schedule 2005-09-20 Completed [facility] rs[facility] of 00:00:00 [facility] Hepatitis A Adult 2005-09-20 Completed [facility] 00:00:00 [facility] Hep B, Adol or Pedi 2005-09-20 Completed [facility] rsity of Dosage 00:00:00 [facility] Pneumococcal 13 2005-09-20 Completed [facility] of Conjugate, PCV13 00:00:00 [facility] dical (Prevnar 13) Branch Polio (IPV/OPV) 2005-09-20 Completed [facility] 00:00:00 [facility] DTAP 2005-09-20 Completed [facility] 00:00:00 [facility] HIB 3 Dose Schedule 2005-09-20 Completed [facility] rs[facility] of 00:00:00 [facility] Hepatitis A Adult 2005-09-20 Completed [facility] 00:00:00 [facility] Hep B, Adol or Pedi 2005-09-20 Completed [facility] rsity of Dosage 00:00:00 [facility] Pneumococcal 13 2005-09-20 Completed [facility] of Conjugate, PCV13 00:00:00 [facility] dical (Prevnar 13) Branch Polio (IPV/OPV) 2005-09-20 Completed [facility] 00:00:00 [facility] DTAP 2005-09-20 Completed [facility] 00:00:00 [facility] HIB 3 Dose Schedule 2005-09-20 Completed [facility] rs[facility] of 00:00:00 [facility] Hepatitis A Adult 2005-09-20 Completed [facility] 00:00:00 [facility] Hep B, Adol or Pedi 2005-09-20 Completed [facility] rs[facility] of Dosage 00:00:00 [facility] Pneumococcal 13 2005-09-20 Completed [facility] of Conjugate, PCV13 00:00:00 [facility] dical (Prevnar 13) Branch Polio (IPV/OPV) 2005-09-20 Completed [facility] 00:00:00 [facility] DTAP 2005-09-20 Completed [facility] 00:00:00 [facility] HIB 3 Dose Schedule 2005-09-20 Completed [facility] rs[facility] of 00:00:00 [facility] Hepatitis A Adult 2005-09-20 Completed [facility] 00:00:00 [facility] Hep B, Adol or Pedi 2005-09-20 Completed [facility] rs[facility] of Dosage 00:00:00 [facility] Pneumococcal 13 2005-09-20 Completed [facility] Conjugate, PCV13 00:00:00 [facility] dical (Prevnar 13) Branch Polio (IPV/OPV) 2005-09-20 Completed [facility] 00:00:00 [facility] DTAP 2005-09-20 Completed [facility] 00:00:00 [facility] HIB 3 Dose Schedule 2005-09-20 Completed [facility] rs[facility] of 00:00:00 [facility] Hepatitis A Adult 2005-09-20 Completed [facility] of 00:00:00 [facility] Hep B, Adol or Pedi 2005-09-20 Completed [facility]ive [facility] of Dosage 00:00:00 [facility] Pneumococcal 13 2005-09-20 Completed [facility] Conjugate, PCV13 00:00:00 [facility] dical (Prevnar 13) Branch Polio (IPV/OPV) 2005-09-20 Completed [facility] 00:00:00 [facility] DTAP 2005-09-20 Completed University of 00:00:00 [facility] HIB 3 Dose Schedule 2005-09-20 Completed [facility] of 00:00:00 [facility] Hepatitis A Adult 2005-09-20 Completed [facility] 00:00:00 [facility] Hep B, Adol or Pedi 2005-09-20 Completed [facility] of Dosage 00:00:00 [facility] Pneumococcal 13 2005-09-20 Completed [facility] of Conjugate, PCV13 00:00:00 [facility] dical (Prevnar 13) Branch Polio (IPV/OPV) 2005-09-20 Completed [facility] 00:00:00 [facility] DTAP 2005-09-20 Completed University of 00:00:00 [facility] HIB 3 Dose Schedule 2005-09-20 Completed [facility] of 00:00:00 [facility] Hepatitis A Adult 2005-09-20 Completed [facility] 00:00:00 [facility] Hep B, Adol or Pedi 2005-09-20 Completed [facility] of Dosage 00:00:00 [facility] Pneumococcal 13 2005-09-20 Completed [facility] of Conjugate, PCV13 00:00:00 [facility] dical (Prevnar 13) Branch Polio (IPV/OPV) 2005-09-20 Completed [facility] 00:00:00 [facility] DTAP 2005-09-20 Completed University of 00:00:00 [facility] HIB 3 Dose Schedule 2005-09-20 Completed [facility] of 00:00:00 [facility] Hepatitis A Adult 2005-09-20 Completed [facility] 00:00:00 [facility] Hep B, Adol or Pedi 2005-09-20 Completed [facility] of Dosage 00:00:00 [facility] Pneumococcal 13 2005-09-20 Completed [facility] of Conjugate, PCV13 00:00:00 [facility] dical (Prevnar 13) Branch Polio (IPV/OPV) 2005-09-20 Completed [facility] of 00:00:00 [facility] DTAP 2005-09-20 Completed [facility] of 00:00:00 [facility] HIB 3 Dose Schedule 2005-09-20 Completed [facility] of 00:00:00 [facility] Hepatitis A Adult 2005-09-20 Completed [facility] 00:00:00 [facility] Hep B, Adol or Pedi 2005-09-20 Completed [facility] of Dosage 00:00:00 [facility] Pneumococcal 13 2005-09-20 Completed [facility] of Conjugate, PCV13 00:00:00 [facility] dical (Prevnar 13) Branch Polio (IPV/OPV) 2005-09-20 Completed [facility] of 00:00:00 [facility] DTAP 2005-09-20 Completed University of 00:00:00 [facility] HIB 3 Dose Schedule 2005-09-20 Completed [facility] of 00:00:00 [facility] Hepatitis A Adult 2005-09-20 Completed [facility] of 00:00:00 [facility] Hep B, Adol or Pedi 2005-09-20 Completed [facility] of Dosage 00:00:00 [facility] Pneumococcal 13 2005-09-20 Completed [facility] of Conjugate, PCV13 00:00:00 [facility] dical (Prevnar 13) Branch Polio (IPV/OPV) 2005-09-20 Completed [facility] of 00:00:00 [facility] DTAP 2005-09-20 Completed [facility] of 00:00:00 [facility] HIB 3 Dose Schedule 2005-09-20 Completed [facility] of 00:00:00 [facility] Hepatitis A Adult 2005-09-20 Completed [facility] of 00:00:00 [facility] Hep B, Adol or Pedi 2005-09-20 Completed [facility] of Dosage 00:00:00 [facility] Pneumococcal 13 2005-09-20 Completed [facility] of Conjugate, PCV13 00:00:00 [facility] dical (Prevnar 13) Branch Polio (IPV/OPV) 2005-09-20 Completed [facility] of 00:00:00 [facility] DTAP 2005-09-20 Completed [facility] of 00:00:00 [facility] HIB 3 Dose Schedule 2005-09-20 Completed [facility] of 00:00:00 [facility] Hepatitis A Adult 2005-09-20 Completed [facility] of 00:00:00 [facility] Hep B, Adol or Pedi 2005-09-20 Completed [facility] of Dosage 00:00:00 [facility] Pneumococcal 13 2005-09-20 Completed [facility] of Conjugate, PCV13 00:00:00 [facility] dical (Prevnar 13) Branch Polio (IPV/OPV) 2005-09-20 Completed [facility] of 00:00:00 [facility] DTAP 2005-09-20 Completed [facility] of 00:00:00 [facility] HIB 3 Dose Schedule 2005-09-20 Completed [facility] of 00:00:00 [facility] Hepatitis A Adult 2005-09-20 Completed [facility] of 00:00:00 [facility] Hep B, Adol or Pedi 2005-09-20 Completed [facility] of Dosage 00:00:00 [facility] Pneumococcal 13 2005-09-20 Completed [facility] of Conjugate, PCV13 00:00:00 [facility] dical (Prevnar 13) Branch Polio (IPV/OPV) 2005-09-20 Completed [facility] of 00:00:00 [facility] DTAP 2005-09-20 Completed [facility] of 00:00:00 [facility] HIB 3 Dose Schedule 2005-09-20 Completed [facility] of 00:00:00 [facility] Hepatitis A Adult 2005-09-20 Completed [facility] of 00:00:00 [facility] Hep B, Adol or Pedi 2005-09-20 Completed [facility] of Dosage 00:00:00 [facility] Pneumococcal 13 2005-09-20 Completed [facility] of Conjugate, PCV13 00:00:00 [facility] dical (Prevnar 13) Branch Polio (IPV/OPV) 2005-09-20 Completed [facility] of 00:00:00 [facility] DTAP 2005-09-20 Completed [facility] of 00:00:00 [facility] HIB 3 Dose Schedule 2005-09-20 Completed [facility] of 00:00:00 [facility] Hepatitis A Adult 2005-09-20 Completed [facility] of 00:00:00 [facility] Hep B, Adol or Pedi 2005-09-20 Completed [facility] of Dosage 00:00:00 [facility] Pneumococcal 13 2005-09-20 Completed [facility] of Conjugate, PCV13 00:00:00 [facility] dical (Prevnar 13) Branch Polio (IPV/OPV) 2005-09-20 Completed [facility] of 00:00:00 [facility] DTAP 2005-09-20 Completed [facility] of 00:00:00 [facility] HIB 3 Dose Schedule 2005-09-20 Completed [facility] of 00:00:00 [facility] Hepatitis A Adult 2005-09-20 Completed [facility] of 00:00:00 [facility] Hep B, Adol or Pedi 2005-09-20 Completed [facility] of Dosage 00:00:00 [facility] Pneumococcal 13 2005-09-20 Completed [facility] of Conjugate, PCV13 00:00:00 [facility] dical (Prevnar 13) Branch Polio (IPV/OPV) 2005-09-20 Completed [facility] of 00:00:00 [facility] DTAP 2005-09-20 Completed [facility] of 00:00:00 [facility] HIB 3 Dose Schedule 2005-09-20 Completed [facility] of 00:00:00 [facility] Hepatitis A Adult 2005-09-20 Completed [facility] of 00:00:00 [facility] Hep B, Adol or Pedi 2005-09-20 Completed [facility] of Dosage 00:00:00 [facility] Pneumococcal 13 2005-09-20 Completed [facility] of Conjugate, PCV13 00:00:00 [facility] dical (Prevnar 13) Branch Polio (IPV/OPV) 2005-09-20 Completed [facility] of 00:00:00 [facility] DTAP 2005-09-20 Completed [facility] of 00:00:00 [facility] HIB 3 Dose Schedule 2005-09-20 Completed [facility] of 00:00:00 [facility] Hepatitis A Adult 2005-09-20 Completed [facility] of 00:00:00 [facility] Hep B, Adol or Pedi 2005-09-20 Completed [facility] of Dosage 00:00:00 [facility] Pneumococcal 13 2005-09-20 Completed [facility] of Conjugate, PCV13 00:00:00 [facility] dical (Prevnar 13) Branch Polio (IPV/OPV) 2005-09-20 Completed [facility] of 00:00:00 [facility] DTAP 2005-09-20 Completed University of 00:00:00 [facility] HIB 3 Dose Schedule 2005-09-20 Completed [facility]ity of 00:00:00 [facility] Hepatitis A Adult 2005-09-20 Completed [facility] of 00:00:00 [facility] Hep B, Adol or Pedi 2005-09-20 Completed [facility] of Dosage 00:00:00 [facility] Pneumococcal 13 2005-09-20 Completed [facility] of Conjugate, PCV13 00:00:00 [facility] dical (Prevnar 13) Branch Polio (IPV/OPV) 2005-09-20 Completed [facility] of 00:00:00 [facility] DTAP 2005-09-20 Completed University of 00:00:00 [facility] HIB 3 Dose Schedule 2005-09-20 Completed [facility]ity of 00:00:00 [facility] Hepatitis A Adult 2005-09-20 Completed [facility] of 00:00:00 [facility] Hep B, Adol or Pedi 2005-09-20 Completed [facility] of Dosage 00:00:00 [facility] Pneumococcal 13 2005-09-20 Completed [facility] of Conjugate, PCV13 00:00:00 [facility] dical (Prevnar 13) Branch Polio (IPV/OPV) 2005-09-20 Completed [facility] of 00:00:00 [facility] DTAP 2005-09-20 Completed University of 00:00:00 [facility] HIB 3 Dose Schedule 2005-09-20 Completed [facility] of 00:00:00 [facility] Hepatitis A Adult 2005-09-20 Completed [facility] of 00:00:00 [facility] Hep B, Adol or Pedi 2005-09-20 Completed [facility] of Dosage 00:00:00 [facility] Pneumococcal 13 2005-09-20 Completed [facility] of Conjugate, PCV13 00:00:00 [facility] dical (Prevnar 13) Branch Polio (IPV/OPV) 2005-09-20 Completed [facility] of 00:00:00 [facility] DTAP 2005-09-20 Completed University of 00:00:00 [facility] HIB 3 Dose Schedule 2005-09-20 Completed [facility]ity of 00:00:00 [facility] Hepatitis A Adult 2005-09-20 Completed [facility] of 00:00:00 [facility] Hep B, Adol or Pedi 2005-09-20 Completed [facility] of Dosage 00:00:00 [facility] Pneumococcal 13 2005-09-20 Completed [facility] of Conjugate, PCV13 00:00:00 [facility] dical (Prevnar 13) Branch Polio (IPV/OPV) 2005-09-20 Completed [facility] of 00:00:00 [facility] DTAP 2005-09-20 Completed University of 00:00:00 [facility] HIB 3 Dose Schedule 2005-09-20 Completed [facility]ity of 00:00:00 [facility] Hepatitis A Adult 2005-09-20 Completed [facility] of 00:00:00 [facility] Hep B, Adol or Pedi 2005-09-20 Completed [facility] of Dosage 00:00:00 [facility] Pneumococcal 13 2005-09-20 Completed [facility] of Conjugate, PCV13 00:00:00 [facility] dical (Prevnar 13) Branch Polio (IPV/OPV) 2005-09-20 Completed [facility] of 00:00:00 [facility] DTAP 2005-09-20 Completed University of 00:00:00 [facility] HIB 3 Dose Schedule 2005-09-20 Completed [facility]ity of 00:00:00 [facility] Hepatitis A Adult 2005-09-20 Completed [facility] of 00:00:00 [facility] Hep B, Adol or Pedi 2005-09-20 Completed [facility] of Dosage 00:00:00 [facility] Pneumococcal 13 2005-09-20 Completed [facility]it [facility] of Conjugate, PCV13 00:00:00 [facility] dical (Prevnar 13) Branch Polio (IPV/OPV) 2005-09-20 Completed [facility] of 00:00:00 [facility] DTaP, Unspecified 2005-09-20 Completed Univers ity of Formulation 00:00:00 [facility] HEPATITIS A 2005-09-20 Completed University of 00:00:00 [facility] HIB 4 Dose Schedule 2005-09-20 Completed [facility]ive rsity of 00:00:00 [facility] Pneumococcal 7 2005-09-20 Completed University of Conjugate, PCV7 00:00:00 [facility] ical (Prevnar7) Branch IPV 2005-09-20 Completed University of 00:00:00 [facility] DTAP 2005-09-20 Completed University of 00:00:00 [facility] HIB 3 Dose Schedule 2005-09-20 Completed [facility]ive rsity of 00:00:00 [facility] Hepatitis A Adult 2005-09-20 Completed [facility] of 00:00:00 [facility] Hep B, Adol or Pedi 2005-09-20 Completed [facility]ive [facility] of Dosage 00:00:00 [facility] Pneumococcal 13 2005-09-20 Completed [facility] of Conjugate, PCV13 00:00:00 [facility] dical (Prevnar 13) Branch Polio (IPV/OPV) 2005-09-20 Completed [facility] of 00:00:00 [facility] DTaP, Unspecified 2005-09-20 Completed Univers ity of Formulation 00:00:00 [facility] HEPATITIS A 2005-09-20 Completed University of 00:00:00 [facility] HIB 4 Dose Schedule 2005-09-20 Completed [facility]ive rsity of 00:00:00 [facility] Pneumococcal 7 2005-09-20 Completed University of Conjugate, PCV7 00:00:00 [facility] (Prevnar7) Branch IPV 2005-09-20 Completed [facility] of 00:00:00 [facility] DTAP 2005-09-20 Completed University of 00:00:00 [facility] HIB 3 Dose Schedule 2005-09-20 Completed [facility]ive rsity of 00:00:00 [facility] Hepatitis A Adult 2005-09-20 Completed [facility] of 00:00:00 [facility] Hep B, Adol or Pedi 2005-09-20 Completed [facility]ive [facility]ity of Dosage 00:00:00 [facility] Pneumococcal 13 2005-09-20 Completed [facility] of Conjugate, PCV13 00:00:00 [facility] dical (Prevnar 13) Branch Polio (IPV/OPV) 2005-09-20 Completed [facility] of 00:00:00 [facility] DTaP, Unspecified 2005-09-20 Completed Univers ity of Formulation 00:00:00 [facility] HEPATITIS A 2005-09-20 Completed University of 00:00:00 [facility] HIB 4 Dose Schedule 2005-09-20 Completed Unive rsity of 00:00:00 [facility] Pneumococcal 7 2005-09-20 Completed University of Conjugate, PCV7 00:00:00 [facility] ical (Prevnar7) Branch IPV 2005-09-20 Completed University of 00:00:00 [facility] DTAP 2005-09-20 Completed University of 00:00:00 [facility] HIB 3 Dose Schedule 2005-09-20 Completed [facility]ive rsity of 00:00:00 [facility] Hepatitis A Adult 2005-09-20 Completed [facility] of 00:00:00 [facility] Hep B, Adol or Pedi 2005-09-20 Completed [facility]ive rsity of Dosage 00:00:00 [facility] Pneumococcal 13 2005-09-20 Completed [facility] of Conjugate, PCV13 00:00:00 [facility] dical (Prevnar 13) Branch Polio (IPV/OPV) 2005-09-20 Completed [facility] of 00:00:00 [facility] DTaP, Unspecified 2005-09-20 Completed Univers ity of Formulation 00:00:00 [facility] HEPATITIS A 2005-09-20 Completed University of 00:00:00 [facility] HIB 4 Dose Schedule 2005-09-20 Completed [facility]ive rsity of 00:00:00 [facility] Pneumococcal 7 2005-09-20 Completed University of Conjugate, PCV7 00:00:00 [place] [facility] (Prevnar7) Branch IPV 2005-09-20 Completed [facility] of 00:00:00 [facility] DTAP 2005-09-20 Completed University of 00:00:00 [facility] HIB 3 Dose Schedule 2005-09-20 Completed [facility]ive rsity of 00:00:00 [facility] Hepatitis A Adult 2005-09-20 Completed [facility] of 00:00:00 [facility] Hep B, Adol or Pedi 2005-09-20 Completed [facility]ive rsity of Dosage 00:00:00 [facility] Pneumococcal 13 2005-09-20 Completed [facility] of Conjugate, PCV13 00:00:00 [facility] dical (Prevnar 13) Branch Polio (IPV/OPV) 2005-09-20 Completed [facility] of 00:00:00 [facility] DTaP, Unspecified 2005-09-20 Completed [facility] ity of Formulation 00:00:00 [facility] HEPATITIS A 2005-09-20 Completed University of 00:00:00 [facility] HIB 4 Dose Schedule 2005-09-20 Completed [facility]ive rsity of 00:00:00 [facility] Pneumococcal 7 2005-09-20 Completed [facility] Conjugate, PCV7 00:00:[facility] IPV 2005-09-20 Completed [facility] of 00:00:00 [facility] DTAP 2005-09-20 Completed University of 00:00:00 [facility] HIB 3 Dose Schedule 2005-09-20 Completed [facility]ive rsity of 00:00:00 [facility] Hepatitis A Adult 2005-09-20 Completed [facility] of 00:00:00 [facility] Hep B, Adol or Pedi 2005-09-20 Completed [facility]ive rsity of Dosage 00:00:00 [facility] Pneumococcal 13 2005-09-20 Completed [facility]it [facility] of Conjugate, PCV13 00:00:00 [facility] dical (Prevnar 13) Branch Polio (IPV/OPV) 2005-09-20 Completed [facility] of 00:00:00 [facility] DTaP, Unspecified 2005-09-20 Completed [facility] ity of Formulation 00:00:00 [facility] HEPATITIS A 2005-09-20 Completed University of 00:00:00 [facility] HIB 4 Dose Schedule 2005-09-20 Completed [facility]ive rsity of 00:00:00 [facility] Pneumococcal 7 2005-09-20 Completed University of Conjugate, PCV7 00:00:00 [facility] (Prevnar7) Branch IPV 2005-09-20 Completed University of 00:00:00 [facility] DTAP 2005-09-20 Completed University of 00:00:00 [facility] HIB 3 Dose Schedule 2005-09-20 Completed [facility]ive rsity of 00:00:00 [facility] Hepatitis A Adult 2005-09-20 Completed [facility] of 00:00:00 [facility] Hep B, Adol or Pedi 2005-09-20 Completed [facility]ive rsity of Dosage 00:00:00 [facility] Pneumococcal 13 2005-09-20 Completed [facility] of Conjugate, PCV13 00:00:00 [facility] dical (Prevnar 13) Branch Polio (IPV/OPV) 2005-09-20 Completed [facility] of 00:00:00 [facility] DTaP, Unspecified 2005-09-20 Completed [facility] ity of Formulation 00:00:00 [facility] HEPATITIS A 2005-09-20 Completed University of 00:00:00 [facility] HIB 4 Dose Schedule 2005-09-20 Completed [facility]ive rsity of 00:00:00 [facility] Pneumococcal 7 2005-09-20 Completed University of Conjugate, PCV7 00:00:00 [facility] ical (Prevnar7) Branch IPV 2005-09-20 Completed University of 00:00:00 [facility] DTAP 2005-09-20 Completed University of 00:00:00 [facility] HIB 3 Dose Schedule 2005-09-20 Completed [facility]ive rsity of 00:00:00 [facility] Hepatitis A Adult 2005-09-20 Completed [facility] of 00:00:00 [facility] Hep B, Adol or Pedi 2005-09-20 Completed [facility]ive rsity of Dosage 00:00:00 [facility] Pneumococcal 13 2005-09-20 Completed [facility]it [facility] of Conjugate, PCV13 00:00:00 [facility] dical (Prevnar 13) Branch Polio (IPV/OPV) 2005-09-20 Completed [facility] of 00:00:00 [facility] DTaP, Unspecified 2005-09-20 Completed [facility] ity of Formulation 00:00:00 [facility] HEPATITIS A 2005-09-20 Completed University of 00:00:00 [facility] HIB 4 Dose Schedule 2005-09-20 Completed [facility]ive rsity of 00:00:00 [facility] Pneumococcal 7 2005-09-20 Completed University of Conjugate, PCV7 00:00:00 [place] [facility] (Prevnar7) Branch IPV 2005-09-20 Completed University of 00:00:00 [facility] DTAP 2005-09-20 Completed University of 00:00:00 [facility] HIB 3 Dose Schedule 2005-09-20 Completed [facility]ive rsity of 00:00:00 [facility] Hepatitis A Adult 2005-09-20 Completed [facility] of 00:00:00 [facility] Hep B, Adol or Pedi 2005-09-20 Completed Unive rsity of Dosage 00:00:00 [facility] Pneumococcal 13 2005-09-20 Completed [facility]it [facility] of Conjugate, PCV13 00:00:00 [facility] dical (Prevnar 13) Branch Polio (IPV/OPV) 2005-09-20 Completed [facility] of 00:00:00 [facility] DTaP, Unspecified 2005-09-20 Completed [facility] ity of Formulation 00:00:00 [facility] HEPATITIS A 2005-09-20 Completed University of 00:00:00 [facility] HIB 4 Dose Schedule 2005-09-20 Completed [facility]ive rsity of 00:00:00 [facility] Pneumococcal 7 2005-09-20 Completed University of Conjugate, PCV7 00:00:00 [facility] (Prevnar7) Branch IPV 2005-09-20 Completed [facility] of 00:00:00 [facility] DTAP 2005-09-20 Completed University of 00:00:00 [facility] HIB 3 Dose Schedule 2005-09-20 Completed [facility]ive rsity of 00:00:00 [facility] Hepatitis A Adult 2005-09-20 Completed [facility] of 00:00:00 [facility] Hep B, Adol or Pedi 2005-09-20 Completed [facility]ive rsity of Dosage 00:00:00 [facility] Pneumococcal 13 2005-09-20 Completed [facility]it [facility] of Conjugate, PCV13 00:00:00 [facility] dical (Prevnar 13) Branch Polio (IPV/OPV) 2005-09-20 Completed [facility] of 00:00:00 [facility] DTaP, Unspecified 2005-09-20 Completed [facility] of Formulation 00:00:00 [facility] HEPATITIS A 2005-09-20 Completed [facility] 00:00:00 [facility] HIB 4 Dose Schedule 2005-09-20 Completed Unive rsity of 00:00:00 [facility] Pneumococcal 7 2005-09-20 Completed University of Conjugate, PCV7 00:00:00 [facility] ical (Prevnar7) Branch IPV 2005-09-20 Completed [facility] of 00:00:00 [facility] DTAP 2005-09-20 Completed University of 00:00:00 [facility] HIB 3 Dose Schedule 2005-09-20 Completed Unive rsity of 00:00:00 [facility] Hepatitis A Adult 2005-09-20 Completed Univers ity of 00:00:00 [facility] Hep B, Adol or Pedi 2005-09-20 Completed Unive rsity of Dosage 00:00:00 [facility] Pneumococcal 13 2005-09-20 Completed Universit y of Conjugate, PCV13 00:00:00 [facility] dical (Prevnar 13) Branch Polio (IPV/OPV) 2005-09-20 Completed Universit y of 00:00:00 [facility] DTaP, Unspecified 2005-09-20 Completed Univers ity of Formulation 00:00:00 [facility] HEPATITIS A 2005-09-20 Completed [facility] of 00:00:00 [facility] HIB 4 Dose Schedule 2005-09-20 Completed Unive rsity of 00:00:00 [facility] Pneumococcal 7 2005-09-20 Completed University of Conjugate, PCV7 00:00:00 [facility] ical (Prevnar7) Branch IPV 2005-09-20 Completed [facility] of 00:00:00 [facility] DTAP 2005-09-20 Completed [facility] of 00:00:00 [facility] HIB 3 Dose Schedule 2005-09-20 Completed Unive rsity of 00:00:00 [facility] Hepatitis A Adult 2005-09-20 Completed Univers ity of 00:00:00 [facility] Hep B, Adol or Pedi 2005-09-20 Completed Unive rsity of Dosage 00:00:00 [facility] Pneumococcal 13 2005-09-20 Completed Universit y of Conjugate, PCV13 00:00:00 [facility] dical (Prevnar 13) Branch Polio (IPV/OPV) 2005-09-20 Completed [facility]it y of 00:00:00 [facility] DTaP, Unspecified 2005-09-20 Completed Univers ity of Formulation 00:00:00 [facility] HEPATITIS A 2005-09-20 Completed [facility] of 00:00:00 [facility] HIB 4 Dose Schedule 2005-09-20 Completed Unive rsity of 00:00:00 [facility] Pneumococcal 7 2005-09-20 Completed [facility] of Conjugate, PCV7 00:00:00 [place] [facility] (Prevnar7) Branch IPV 2005-09-20 Completed [facility] of 00:00:00 [facility] DTAP 2005-09-20 Completed [facility] of 00:00:00 [facility] HIB 3 Dose Schedule 2005-09-20 Completed Unive rsity of 00:00:00 [facility] Hepatitis A Adult 2005-09-20 Completed Univers ity of 00:00:00 [facility] Hep B, Adol or Pedi 2005-09-20 Completed Unive rsity of Dosage 00:00:00 [facility] Pneumococcal 13 2005-09-20 Completed Universit y of Conjugate, PCV13 00:00:00 [facility] dicwa (Prevnar 13) Branch Polio (IPV/OPV) 2005-09-20 Completed [facility]it y of 00:00:00 [facility] DTaP, Unspecified 2005-09-20 Completed Univers ity of Formulation 00:00:00 [facility] HEPATITIS A 2005-09-20 Completed [facility] of 00:00:00 [facility] HIB 4 Dose Schedule 2005-09-20 Completed Unive rsity of 00:00:00 [facility] Pneumococcal 7 2005-09-20 Completed University of Conjugate, PCV7 00:00:00 [place] [facility] (Prevnar7) Branch IPV 2005-09-20 Completed [facility] of 00:00:00 [facility] DTAP 2005-09-20 Completed [facility] of 00:00:00 [facility] HIB 3 Dose Schedule 2005-09-20 Completed Unive rsity of 00:00:00 [facility] Hepatitis A Adult 2005-09-20 Completed Univers ity of 00:00:00 [facility] Hep B, Adol or Pedi 2005-09-20 Completed Unive rsity of Dosage 00:00:00 [facility] Pneumococcal 13 2005-09-20 Completed Universit y of Conjugate, PCV13 00:00:00 [facility] dical (Prevnar 13) Branch Polio (IPV/OPV) 2005-09-20 Completed [facility]it y of 00:00:00 [facility] DTaP, Unspecified 2005-09-20 Completed Univers ity of Formulation 00:00:00 [facility] HEPATITIS A 2005-09-20 Completed [facility] of 00:00:00 [facility] HIB 4 Dose Schedule 2005-09-20 Completed Unive rsity of 00:00:00 [facility] Pneumococcal 7 2005-09-20 Completed University of Conjugate, PCV7 00:00:00 [place] [facility] (Prevnar7) Branch IPV 2005-09-20 Completed [facility] of 00:00:00 [facility] DTAP 2005-09-20 Completed [facility] of 00:00:00 [facility] HIB 3 Dose Schedule 2005-09-20 Completed Unive rsity of 00:00:00 [facility] Hepatitis A Adult 2005-09-20 Completed Univers ity of 00:00:00 [facility] Hep B, Adol or Pedi 2005-09-20 Completed Unive rsity of Dosage 00:00:00 [facility] Pneumococcal 13 2005-09-20 Completed Universit y of Conjugate, PCV13 00:00:00 [facility] dicwa (Prevnar 13) Branch Polio (IPV/OPV) 2005-09-20 Completed Universit y of 00:00:00 [facility] DTaP, Unspecified 2005-09-20 Completed Univers ity of Formulation 00:00:00 [facility] HEPATITIS A 2005-09-20 Completed University of 00:00:00 [facility] HIB 4 Dose Schedule 2005-09-20 Completed Unive rsity of 00:00:00 [facility] Pneumococcal 7 2005-09-20 Completed University of Conjugate, PCV7 00:00:00 [place] [facility] (Prevnar7) Branch IPV 2005-09-20 Completed [facility] of 00:00:00 [facility] DTAP 2004-07-22 Completed [facility] of 00:00:00 [facility] Hep B, Adol or Pedi 2004-07-22 Completed Unive rsity of Dosage 00:00:00 [facility] MMR 2004-07-22 Completed [facility] of 00:00:00 [facility] Polio (IPV/OPV) 2004-07-22 Completed [facility]it y of 00:00:00 [facility] Varicella 2004-07-22 Completed University of (varivax)(chicken 00:00:00 [place] [facility] pox) Branch DTAP 2004-07-22 Completed [facility] of 00:00:00 [facility] Hep B, Adol or Pedi 2004-07-22 Completed Unive rsity of Dosage 00:00:00 [facility] MMR 2004-07-22 Completed [facility] of 00:00:00 [facility] Polio (IPV/OPV) 2004-07-22 Completed Universit y of 00:00:00 [facility] Varicella 2004-07-22 Completed University of (varivax)(chicken 00:00:00 [place] [facility] pox) Branch DTAP 2004-07-22 Completed [facility] of 00:00:00 [facility] Hep B, Adol or Pedi 2004-07-22 Completed Unive rsity of Dosage 00:00:00 [facility] MMR 2004-07-22 Completed [facility] of 00:00:00 [facility] Polio (IPV/OPV) 2004-07-22 Completed [facility]it y of 00:00:00 [facility] Varicella 2004-07-22 Completed University of (varivax)(chicken 00:00:00 [facility] edical pox) Branch DTAP 2004-07-22 Completed University of 00:00:00 [facility] Hep B, Adol or Pedi 2004-07-22 Completed Unive rsity of Dosage 00:00:00 [facility] MMR 2004-07-22 Completed University of 00:00:00 [facility] Polio (IPV/OPV) 2004-07-22 Completed [facility]it y of 00:00:00 [facility] Varicella 2004-07-22 Completed [facility] of (varivax)(chicken 00:00:00 [place] [facility] pox) Branch DTAP 2004-07-22 Completed [facility] of 00:00:00 [facility] Hep B, Adol or Pedi 2004-07-22 Completed Unive rsity of Dosage 00:00:00 [facility] MMR 2004-07-22 Completed University of 00:00:00 [facility] Polio (IPV/OPV) 2004-07-22 Completed Universit y of 00:00:00 [facility] Varicella 2004-07-22 Completed University of (varivax)(chicken 00:00:00 [place] [facility] pox) Branch DTAP 2004-07-22 Completed [facility] of 00:00:00 [facility] Hep B, Adol or Pedi 2004-07-22 Completed Unive rsity of Dosage 00:00:00 [facility] MMR 2004-07-22 Completed University of 00:00:00 [facility] Polio (IPV/OPV) 2004-07-22 Completed Universit y of 00:00:00 [facility] Varicella 2004-07-22 Completed [facility] of (varivax)(chicken 00:00:00 [place] [facility] pox) Branch DTAP 2004-07-22 Completed [facility] of 00:00:00 [facility] Hep B, Adol or Pedi 2004-07-22 Completed Unive rsity of Dosage 00:00:00 [facility] MMR 2004-07-22 Completed University of 00:00:00 [facility] Polio (IPV/OPV) 2004-07-22 Completed Universit y of 00:00:00 [facility] Varicella 2004-07-22 Completed University of (varivax)(chicken 00:00:00 [facility] edical pox) Branch DTAP 2004-07-22 Completed University of 00:00:00 [facility] Hep B, Adol or Pedi 2004-07-22 Completed Unive rsity of Dosage 00:00:00 [facility] MMR 2004-07-22 Completed University of 00:00:00 [facility] Polio (IPV/OPV) 2004-07-22 Completed [facility]it y of 00:00:00 [facility] Varicella 2004-07-22 Completed University of (varivax)(chicken 00:00:00 [place] [facility] pox) Branch DTAP 2004-07-22 Completed [facility] of 00:00:00 [facility] Hep B, Adol or Pedi 2004-07-22 Completed Unive rsity of Dosage 00:00:00 [facility] MMR 2004-07-22 Completed University of 00:00:00 [facility] Polio (IPV/OPV) 2004-07-22 Completed Universit y of 00:00:00 [facility] Varicella 2004-07-22 Completed University of (varivax)(chicken 00:00:00 [place] [facility] pox) Branch DTAP 2004-07-22 Completed [facility] 00:00:00 [facility] Hep B, Adol or Pedi 2004-07-22 Completed Unive rsity of Dosage 00:00:00 [facility] MMR 2004-07-22 Completed University of 00:00:00 [facility] Polio (IPV/OPV) 2004-07-22 Completed [facility]it y of 00:00:00 [facility] Varicella 2004-07-22 Completed [facility] of (varivax)(chicken 00:00:00 [place] [facility] pox) Branch DTAP 2004-07-22 Completed [facility] of 00:00:00 [facility] Hep B, Adol or Pedi 2004-07-22 Completed Unive rsity of Dosage 00:00:00 [facility] MMR 2004-07-22 Completed University of 00:00:00 [facility] Polio (IPV/OPV) 2004-07-22 Completed Universit y of 00:00:00 [facility] Varicella 2004-07-22 Completed [facility] of (varivax)(chicken 00:00:00 [place] [facility] pox) Branch DTAP 2004-07-22 Completed [facility] of 00:00:00 [facility] Hep B, Adol or Pedi 2004-07-22 Completed Unive rsity of Dosage 00:00:00 [facility] MMR 2004-07-22 Completed University of 00:00:00 [facility] Polio (IPV/OPV) 2004-07-22 Completed Universit [facility] of 00:00:00 [facility] Varicella 2004-07-22 Completed [facility] of (varivax)(chicken 00:00:00 [place] [facility] pox) Branch DTAP 2004-07-22 Completed [facility] of 00:00:00 [facility] Hep B, Adol or Pedi 2004-07-22 Completed Unive rsity of Dosage 00:00:00 [facility] MMR 2004-07-22 Completed University of 00:00:00 [facility] Polio (IPV/OPV) 2004-07-22 Completed Universit y of 00:00:00 [facility] Varicella 2004-07-22 Completed [facility] of (varivax)(chicken 00:00:00 [place] [facility] pox) Branch DTAP 2004-07-22 Completed [facility] of 00:00:00 [facility] Hep B, Adol or Pedi 2004-07-22 Completed Unive rsity of Dosage 00:00:00 [facility] MMR 2004-07-22 Completed University of 00:00:00 [facility] Polio (IPV/OPV) 2004-07-22 Completed Universit y of 00:00:00 [facility] Varicella 2004-07-22 Completed [facility] of (varivax)(chicken 00:00:00 [place] [facility] pox) Branch DTAP 2004-07-22 Completed [facility] of 00:00:00 [facility] Hep B, Adol or Pedi 2004-07-22 Completed Unive rsity of Dosage 00:00:00 [facility] MMR 2004-07-22 Completed University of 00:00:00 [facility] Polio (IPV/OPV) 2004-07-22 Completed Universit y of 00:00:00 [facility] Varicella 2004-07-22 Completed University of (varivax)(chicken 00:00:00 [place] [facility] pox) Branch DTAP 2004-07-22 Completed [facility] of 00:00:00 [facility] Hep B, Adol or Pedi 2004-07-22 Completed Unive rsity of Dosage 00:00:00 [facility] MMR 2004-07-22 Completed University of 00:00:00 [facility] Polio (IPV/OPV) 2004-07-22 Completed Universit y of 00:00:00 [facility] Varicella 2004-07-22 Completed University of (varivax)(chicken 00:00:00 [facility] [place] edical pox) Branch DTAP 2004-07-22 Completed University of 00:00:00 [facility] Hep B, Adol or Pedi 2004-07-22 Completed Unive rsity of Dosage 00:00:00 [facility] MMR 2004-07-22 Completed University of 00:00:00 [facility] Polio (IPV/OPV) 2004-07-22 Completed Universit y of 00:00:00 [facility] Varicella 2004-07-22 Completed University of (varivax)(chicken 00:00:00 [place] [facility] pox) Branch DTAP 2004-07-22 Completed [facility] of 00:00:00 [facility] Hep B, Adol or Pedi 2004-07-22 Completed Unive rsity of Dosage 00:00:00 [facility] MMR 2004-07-22 Completed University of 00:00:00 [facility] Polio (IPV/OPV) 2004-07-22 Completed Universit y of 00:00:00 [facility] Varicella 2004-07-22 Completed [facility] of (varivax)(chicken 00:00:00 [place] [facility] pox) Branch DTAP 2004-07-22 Completed [facility] of 00:00:00 [facility] Hep B, Adol or Pedi 2004-07-22 Completed Unive rsity of Dosage 00:00:00 [facility] MMR 2004-07-22 Completed University of 00:00:00 [facility] Polio (IPV/OPV) 2004-07-22 Completed Universit [facility] of 00:00:00 [facility] Varicella 2004-07-22 Completed University of (varivax)(chicken 00:00:00 [place] [facility] pox) Branch DTAP 2004-07-22 Completed [facility] of 00:00:00 [facility] Hep B, Adol or Pedi 2004-07-22 Completed Unive rsity of Dosage 00:00:00 [facility] MMR 2004-07-22 Completed University of 00:00:00 [facility] Polio (IPV/OPV) 2004-07-22 Completed Universit y of 00:00:00 [facility] Varicella 2004-07-22 Completed University of (varivax)(chicken 00:00:00 [place] [facility] pox) Branch DTAP 2004-07-22 Completed [facility] of 00:00:00 [facility] Hep B, Adol or Pedi 2004-07-22 Completed Unive rsity of Dosage 00:00:00 [facility] MMR 2004-07-22 Completed University of 00:00:00 [facility] Polio (IPV/OPV) 2004-07-22 Completed [facility]it [facility] of 00:00:00 [facility] Varicella 2004-07-22 Completed University of (varivax)(chicken 00:00:00 [place] [facility] pox) Branch DTAP 2004-07-22 Completed [facility] of 00:00:00 [facility] Hep B, Adol or Pedi 2004-07-22 Completed Unive rsity of Dosage 00:00:00 [facility] MMR 2004-07-22 Completed University of 00:00:00 [facility] Polio (IPV/OPV) 2004-07-22 Completed Universit y of 00:00:00 [facility] Varicella 2004-07-22 Completed University of (varivax)(chicken 00:00:00 [place] [facility] pox) Branch DTAP 2004-07-22 Completed [facility] of 00:00:00 [facility] Hep B, Adol or Pedi 2004-07-22 Completed Unive rsity of Dosage 00:00:00 [facility] MMR 2004-07-22 Completed University of 00:00:00 [facility] Polio (IPV/OPV) 2004-07-22 Completed Universit y of 00:00:00 [facility] Varicella 2004-07-22 Completed University of (varivax)(chicken 00:00:00 [facility] [place] edical pox) Branch DTAP 2004-07-22 Completed University of 00:00:00 [facility] Hep B, Adol or Pedi 2004-07-22 Completed Unive rsity of Dosage 00:00:00 [facility] MMR 2004-07-22 Completed University of 00:00:00 [facility] Polio (IPV/OPV) 2004-07-22 Completed Universit y of 00:00:00 [facility] Varicella 2004-07-22 Completed University of (varivax)(chicken 00:00:00 [facility] [place] edical pox) Branch DTAP 2004-07-22 Completed University of 00:00:00 [facility] Hep B, Adol or Pedi 2004-07-22 Completed Unive rsity of Dosage 00:00:00 [facility] MMR 2004-07-22 Completed University of 00:00:00 [facility] Polio (IPV/OPV) 2004-07-22 Completed Universit y of 00:00:00 [facility] Varicella 2004-07-22 Completed University of (varivax)(chicken 00:00:00 [facility] [place] edical pox) Branch DTAP 2004-07-22 Completed University of 00:00:00 [facility] Hep B, Adol or Pedi 2004-07-22 Completed Unive rsity of Dosage 00:00:00 [facility] MMR 2004-07-22 Completed University of 00:00:00 [facility] Polio (IPV/OPV) 2004-07-22 Completed Universit y of 00:00:00 [facility] Varicella 2004-07-22 Completed University of (varivax)(chicken 00:00:00 [place] [facility] pox) Branch DTAP 2004-07-22 Completed [facility] of 00:00:00 [facility] Hep B, Adol or Pedi 2004-07-22 Completed Unive rsity of Dosage 00:00:00 [facility] MMR 2004-07-22 Completed University of 00:00:00 [facility] Polio (IPV/OPV) 2004-07-22 Completed Universit y of 00:00:00 [facility] Varicella 2004-07-22 Completed [facility] of (varivax)(chicken 00:00:00 [place] [facility] pox) Branch DTAP 2004-07-22 Completed [facility] of 00:00:00 [facility] Hep B, Adol or Pedi 2004-07-22 Completed Unive rsity of Dosage 00:00:00 [facility] MMR 2004-07-22 Completed University of 00:00:00 [facility] Polio (IPV/OPV) 2004-07-22 Completed [facility]it [facility] of 00:00:00 [facility] Varicella 2004-07-22 Completed University of (varivax)(chicken 00:00:00 [place] [facility] pox) Branch DTAP 2004-07-22 Completed [facility] of 00:00:00 [facility] Hep B, Adol or Pedi 2004-07-22 Completed Unive rsity of Dosage 00:00:00 [facility] MMR 2004-07-22 Completed University of 00:00:00 [facility] Polio (IPV/OPV) 2004-07-22 Completed Universit y of 00:00:00 [facility] Varicella 2004-07-22 Completed University of (varivax)(chicken 00:00:00 [place] [facility] pox) Branch DTAP 2004-07-22 Completed [facility] of 00:00:00 [facility] Hep B, Adol or Pedi 2004-07-22 Completed Unive rsity of Dosage 00:00:00 [facility] MMR 2004-07-22 Completed University of 00:00:00 [facility] Polio (IPV/OPV) 2004-07-22 Completed Universit [facility] of 00:00:00 [facility] Varicella 2004-07-22 Completed University of (varivax)(chicken 00:00:00 [place] [facility] pox) Branch DTAP 2004-07-22 Completed [facility] of 00:00:00 [facility] Hep B, Adol or Pedi 2004-07-22 Completed Unive rsity of Dosage 00:00:00 [facility] MMR 2004-07-22 Completed University of 00:00:00 [facility] Polio (IPV/OPV) 2004-07-22 Completed Universit [facility] of 00:00:00 [facility] Varicella 2004-07-22 Completed University of (varivax)(chicken 00:00:00 [place] [facility] pox) Branch DTAP 2004-07-22 Completed [facility] of 00:00:00 [facility] Hep B, Adol or Pedi 2004-07-22 Completed Unive rsity of Dosage 00:00:00 [facility] MMR 2004-07-22 Completed University of 00:00:00 [facility] Polio (IPV/OPV) 2004-07-22 Completed [facility]it [facility] of 00:00:00 [facility] Varicella 2004-07-22 Completed [facility] of (varivax)(chicken 00:00:00 [place] [facility] pox) Branch DTAP 2004-07-22 Completed [facility] of 00:00:00 [facility] Hep B, Adol or Pedi 2004-07-22 Completed Unive rsity of Dosage 00:00:00 [facility] MMR 2004-07-22 Completed University of 00:00:00 [facility] Polio (IPV/OPV) 2004-07-22 Completed [facility] of 00:00:00 [facility] Varicella 2004-07-22 Completed University of (varivax)(chicken 00:00:00 [place] [facility] pox) Branch DTAP 2004-07-22 Completed [facility] of 00:00:00 [facility] Hep B, Adol or Pedi 2004-07-22 Completed Unive rsity of Dosage 00:00:00 [facility] MMR 2004-07-22 Completed [facility] of 00:00:00 [facility] Polio (IPV/OPV) 2004-07-22 Completed [facility] 00:00:00 [facility] Varicella 2004-07-22 Completed [facility] of (varivax)(chicken 00:00:00 [place] [facility] pox) Branch DTAP 2004-07-22 Completed [facility] of 00:00:00 [facility] Hep B, Adol or Pedi 2004-07-22 Completed Unive rsity of Dosage 00:00:00 [facility] MMR 2004-07-22 Completed [facility] of 00:00:00 [facility] Polio (IPV/OPV) 2004-07-22 Completed [facility] 00:00:00 [facility] Varicella 2004-07-22 Completed [facility] of (varivax)(chicken 00:00:00 [place] [facility] pox) Branch DTAP 2004-07-22 Completed [facility] 00:00:00 [facility] Hep B, Adol or Pedi 2004-07-22 Completed Unive rsity of Dosage 00:00:00 [facility] MMR 2004-07-22 Completed [facility] 00:00:00 [facility] Polio (IPV/OPV) 2004-07-22 Completed [facility] 00:00:00 [facility] Varicella 2004-07-22 Completed [facility] of (varivax)(chicken 00:00:00 [facility] [place] edical pox) Branch DTAP 2004-07-22 Completed [facility] 00:00:00 [facility] Hep B, Adol or Pedi 2004-07-22 Completed Unive rsity of Dosage 00:00:00 [facility] MMR 2004-07-22 Completed [facility] 00:00:00 [facility] Polio (IPV/OPV) 2004-07-22 Completed [facility] 00:00:00 [facility] Varicella 2004-07-22 Completed [facility] of (varivax)(chicken 00:00:00 [facility] [place] edical pox) Branch DTAP 2004-07-22 Completed [facility] 00:00:00 [facility] Hep B, Adol or Pedi 2004-07-22 Completed [facility] rs[facility] of Dosage 00:00:00 [facility] MMR 2004-07-22 Completed [facility] 00:00:00 [facility] Polio (IPV/OPV) 2004-07-22 Completed [facility] 00:00:00 [facility] Varicella 2004-07-22 Completed [facility] of (varivax)(chicken 00:00:00 [facility] [place] edical pox) Branch DTaP, Unspecified 2004-07-22 Completed Univers ity of Formulation 00:00:00 [facility] IPV 2004-07-22 Completed [facility] 00:00:00 [facility] DTAP 2004-07-22 Completed [facility] 00:00:00 [facility] Hep B, Adol or Pedi 2004-07-22 Completed [facility]ive rs[facility] of Dosage 00:00:00 [facility] MMR 2004-07-22 Completed [facility] 00:00:00 [facility] Polio (IPV/OPV) 2004-07-22 Completed [facility] 00:00:00 [facility] Varicella 2004-07-22 Completed [facility] (varivax)(chicken 00:00:00 [place] [facility] pox) [facility] DTaP, Unspecified 2004-07-22 Completed [facility] ity of Formulation 00:00:00 [facility] IPV 2004-07-22 Completed [facility] 00:00:00 [facility] DTAP 2004-07-22 Completed [facility] 00:00:00 [facility] Hep B, Adol or Pedi 2004-07-22 Completed [facility] of Dosage 00:00:00 [facility] MMR 2004-07-22 Completed [facility] 00:00:00 [facility] Polio (IPV/OPV) 2004-07-22 Completed [facility] 00:00:00 [facility] Varicella 2004-07-22 Completed [facility] of (varivax)(chicken 00:00:00 [facility] [place] edical pox) Branch DTaP, Unspecified 2004-07-22 Completed [facility] Formulation 00:00:00 [facility] IPV 2004-07-22 Completed [facility] 00:00:00 [facility] DTAP 2004-07-22 Completed [facility] 00:00:00 [facility] Hep B, Adol or Pedi 2004-07-22 Completed [facility]ive rsity of Dosage 00:00:00 [facility] MMR 2004-07-22 Completed [facility] 00:00:00 [facility] Polio (IPV/OPV) 2004-07-22 Completed [facility] 00:00:00 [facility] Varicella 2004-07-22 Completed [facility] (varivax)(chicken 00:00:00 [place] [facility] pox) [facility] DTaP, Unspecified 2004-07-22 Completed [facility] ity of Formulation 00:00:00 [facility] IPV 2004-07-22 Completed [facility] 00:00:00 [facility] DTAP 2004-07-22 Completed [facility] 00:00:00 [facility] Hep B, Adol or Pedi 2004-07-22 Completed [facility]ive rs[facility] of Dosage 00:00:00 [facility] MMR 2004-07-22 Completed [facility] 00:00:00 [facility] Polio (IPV/OPV) 2004-07-22 Completed [facility] 00:00:00 [facility] Varicella 2004-07-22 Completed [facility] (varivax)(chicken 00:00:00 [place] [facility] pox) Branch DTaP, Unspecified 2004-07-22 Completed [facility] ity of Formulation 00:00:00 [facility] IPV 2004-07-22 Completed [facility] 00:00:00 [facility] DTAP 2004-07-22 Completed [facility] 00:00:00 [facility] Hep B, Adol or Pedi 2004-07-22 Completed [facility]ive rs[facility] of Dosage 00:00:00 [facility] MMR 2004-07-22 Completed [facility] of 00:00:00 [facility] Polio (IPV/OPV) 2004-07-22 Completed [facility] 00:00:00 [facility] Varicella 2004-07-22 Completed [facility] of (varivax)(chicken 00:00:00 [facility] [place] edical pox) Branch DTaP, Unspecified 2004-07-22 Completed [facility] it[facility] of Formulation 00:00:00 [facility] IPV 2004-07-22 Completed [facility] of 00:00:00 [facility] DTAP 2004-07-22 Completed [facility] of 00:00:00 [facility] Hep B, Adol or Pedi 2004-07-22 Completed [facility]ive rsity of Dosage 00:00:00 [facility] MMR 2004-07-22 Completed [facility] 00:00:00 [facility] Polio (IPV/OPV) 2004-07-22 Completed [facility] 00:00:00 [facility] Varicella 2004-07-22 Completed [facility] of (varivax)(chicken 00:00:00 [facility] [place] edical pox) Branch DTaP, Unspecified 2004-07-22 Completed [facility] it[facility] of Formulation 00:00:00 [facility] IPV 2004-07-22 Completed [facility] 00:00:00 [facility] DTAP 2004-07-22 Completed [facility] 00:00:00 [facility] Hep B, Adol or Pedi 2004-07-22 Completed [facility]ive rs[facility] of Dosage 00:00:00 [facility] MMR 2004-07-22 Completed [facility] of 00:00:00 [facility] Polio (IPV/OPV) 2004-07-22 Completed [facility] 00:00:00 [facility] Varicella 2004-07-22 Completed [facility] of (varivax)(chicken 00:00:00 [facility] [place] edical pox) Branch DTaP, Unspecified 2004-07-22 Completed [facility] it[facility] of Formulation 00:00:00 [facility] IPV 2004-07-22 Completed [facility] of 00:00:00 [facility] DTAP 2004-07-22 Completed [facility] 00:00:00 [facility] Hep B, Adol or Pedi 2004-07-22 Completed [facility]ive rsity of Dosage 00:00:00 [facility] MMR 2004-07-22 Completed [facility] of 00:00:00 [facility] Polio (IPV/OPV) 2004-07-22 Completed [facility] 00:00:00 [facility] Varicella 2004-07-22 Completed [facility] of (varivax)(chicken 00:00:00 [facility] [place] edical pox) Branch DTaP, Unspecified 2004-07-22 Completed [facility] it[facility] of Formulation 00:00:00 [facility] IPV 2004-07-22 Completed [facility] of 00:00:00 [facility] DTAP 2004-07-22 Completed [facility] of 00:00:00 [facility] Hep B, Adol or Pedi 2004-07-22 Completed [facility]ive rsity of Dosage 00:00:00 [facility] MMR 2004-07-22 Completed [facility] of 00:00:00 [facility] Polio (IPV/OPV) 2004-07-22 Completed [facility] 00:00:00 [facility] Varicella 2004-07-22 Completed [facility] (varivax)(chicken 00:00:00 [place] ed[facility] pox) Branch DTaP, Unspecified 2004-07-22 Completed [facility] it[facility] of Formulation 00:00:00 [facility] IPV 2004-07-22 Completed [facility] of 00:00:00 [facility] DTAP 2004-07-22 Completed [facility] 00:00:00 [facility] Hep B, Adol or Pedi 2004-07-22 Completed [facility]ive rsity of Dosage 00:00:00 [facility] MMR 2004-07-22 Completed [facility] of 00:00:00 [facility] Polio (IPV/OPV) 2004-07-22 Completed [facility] 00:00:00 [facility] Varicella 2004-07-22 Completed [facility] (varivax)(chicken 00:00:00 [place] [facility] pox) Branch DTaP, Unspecified 2004-07-22 Completed [facility] Formulation 00:00:00 [facility] IPV 2004-07-22 Completed [facility] of 00:00:00 [facility] DTAP 2004-07-22 Completed [facility] of 00:00:00 [facility] Hep B, Adol or Pedi 2004-07-22 Completed [facility]ive rsity of Dosage 00:00:00 [facility] MMR 2004-07-22 Completed [facility] of 00:00:00 [facility] Polio (IPV/OPV) 2004-07-22 Completed [facility] 00:00:00 [facility] Varicella 2004-07-22 Completed [facility] of (varivax)(chicken 00:00:00 [place] [facility] pox) Branch DTaP, Unspecified 2004-07-22 Completed [facility] it[facility] of Formulation 00:00:00 [facility] IPV 2004-07-22 Completed [facility] of 00:00:00 [facility] DTAP 2004-07-22 Completed [facility] of 00:00:00 [facility] Hep B, Adol or Pedi 2004-07-22 Completed Unive rsity of Dosage 00:00:00 [facility] MMR 2004-07-22 Completed [facility] of 00:00:00 [facility] Polio (IPV/OPV) 2004-07-22 Completed [facility] 00:00:00 [facility] Varicella 2004-07-22 Completed [facility] (varivax)(chicken 00:00:00 [place] [facility] pox) Branch DTaP, Unspecified 2004-07-22 Completed [facility] it[facility] of Formulation 00:00:00 [facility] IPV 2004-07-22 Completed [facility] of 00:00:00 [facility] DTAP 2004-07-22 Completed [facility] 00:00:00 [facility] Hep B, Adol or Pedi 2004-07-22 Completed Unive rsity of Dosage 00:00:00 [facility] MMR 2004-07-22 Completed [facility] of 00:00:00 [facility] Polio (IPV/OPV) 2004-07-22 Completed [facility] 00:00:00 [facility] Varicella 2004-07-22 Completed [facility] (varivax)(chicken 00:00:00 [place] [facility] pox) Branch DTaP, Unspecified 2004-07-22 Completed [facility] it[facility] of Formulation 00:00:00 [facility] IPV 2004-07-22 Completed [facility] of 00:00:00 [facility] DTAP 2004-07-22 Completed [facility] of 00:00:00 [facility] Hep B, Adol or Pedi 2004-07-22 Completed Unive rsity of Dosage 00:00:00 [facility] MMR 2004-07-22 Completed [facility] of 00:00:00 [facility] Polio (IPV/OPV) 2004-07-22 Completed [facility] 00:00:00 [facility] Varicella 2004-07-22 Completed [facility] of (varivax)(chicken 00:00:00 [place] [facility] pox) Branch DTaP, Unspecified 2004-07-22 Completed [facility] it[facility] of Formulation 00:00:00 [facility] IPV 2004-07-22 Completed [facility] 00:00:00 [facility] DTAP 2003-06-04 Completed [facility] 00:00:00 [facility] HIB 3 Dose Schedule 2003-06-04 Completed Unive rsity of 00:00:00 [facility] Hep B, Adol or Pedi 2003-06-04 Completed [facility]ive rsity of Dosage 00:00:00 [facility] MMR 2003-06-04 Completed [facility] of 00:00:00 [facility] Polio (IPV/OPV) 2003-06-04 Completed [facility] 00:00:00 [facility] Varicella 2003-06-04 Completed [facility] of (varivax)(chicken 00:00:00 [place] [facility] pox) Branch DTAP 2003-06-04 Completed [facility] 00:00:00 [facility] HIB 3 Dose Schedule 2003-06-04 Completed Unive rsity of 00:00:00 [facility] Hep B, Adol or Pedi 2003-06-04 Completed Unive rsity of Dosage 00:00:00 [facility] MMR 2003-06-04 Completed [facility] of 00:00:00 [facility] Polio (IPV/OPV) 2003-06-04 Completed [facility] 00:00:00 [facility] Varicella 2003-06-04 Completed [facility] of (varivax)(chicken 00:00:00 [place] [facility] pox) Branch DTAP 2003-06-04 Completed [facility] 00:00:00 [facility] HIB 3 Dose Schedule 2003-06-04 Completed Unive rsity of 00:00:00 [facility] Hep B, Adol or Pedi 2003-06-04 Completed Unive rsity of Dosage 00:00:00 [facility] MMR 2003-06-04 Completed [facility] of 00:00:00 [facility] Polio (IPV/OPV) 2003-06-04 Completed [facility] 00:00:00 [facility] Varicella 2003-06-04 Completed [facility] (varivax)(chicken 00:00:00 [place] [facility] pox) Branch DTAP 2003-06-04 Completed [facility] 00:00:00 [facility] HIB 3 Dose Schedule 2003-06-04 Completed Unive rsity of 00:00:00 [facility] Hep B, Adol or Pedi 2003-06-04 Completed Unive rsity of Dosage 00:00:00 [facility] MMR 2003-06-04 Completed [facility] of 00:00:00 [facility] Polio (IPV/OPV) 2003-06-04 Completed [facility] 00:00:00 [facility] Varicella 2003-06-04 Completed [facility] of (varivax)(chicken 00:00:00 [place] [facility] pox) Branch DTAP 2003-06-04 Completed [facility] 00:00:00 [facility] HIB 3 Dose Schedule 2003-06-04 Completed Unive rsity of 00:00:00 [facility] Hep B, Adol or Pedi 2003-06-04 Completed Unive rsity of Dosage 00:00:00 [facility] MMR 2003-06-04 Completed [facility] of 00:00:00 [facility] Polio (IPV/OPV) 2003-06-04 Completed [facility] 00:00:00 [facility] Varicella 2003-06-04 Completed [facility] of (varivax)(chicken 00:00:00 [place] [facility] pox) Branch DTAP 2003-06-04 Completed [facility] 00:00:00 [facility] HIB 3 Dose Schedule 2003-06-04 Completed Unive rsity of 00:00:00 [facility] Hep B, Adol or Pedi 2003-06-04 Completed Unive rsity of Dosage 00:00:00 [facility] MMR 2003-06-04 Completed [facility] of 00:00:00 [facility] Polio (IPV/OPV) 2003-06-04 Completed [facility] 00:00:00 [facility] Varicella 2003-06-04 Completed [facility] of (varivax)(chicken 00:00:00 [place] [facility] pox) Branch DTAP 2003-06-04 Completed [facility] 00:00:00 [facility] HIB 3 Dose Schedule 2003-06-04 Completed Unive rsity of 00:00:00 [facility] Hep B, Adol or Pedi 2003-06-04 Completed Unive rsity of Dosage 00:00:00 [facility] MMR 2003-06-04 Completed [facility] of 00:00:00 [facility] Polio (IPV/OPV) 2003-06-04 Completed [facility] 00:00:00 [facility] Varicella 2003-06-04 Completed [facility] of (varivax)(chicken 00:00:00 [place] [facility] pox) Branch DTAP 2003-06-04 Completed [facility] 00:00:00 [facility] HIB 3 Dose Schedule 2003-06-04 Completed Unive rsity of 00:00:00 [facility] Hep B, Adol or Pedi 2003-06-04 Completed Unive rsity of Dosage 00:00:00 [facility] MMR 2003-06-04 Completed [facility] of 00:00:00 [facility] Polio (IPV/OPV) 2003-06-04 Completed [facility] 00:00:00 [facility] Varicella 2003-06-04 Completed [facility] of (varivax)(chicken 00:00:00 [place] [facility] pox) Branch DTAP 2003-06-04 Completed [facility] 00:00:00 [facility] HIB 3 Dose Schedule 2003-06-04 Completed Unive rsity of 00:00:00 [facility] Hep B, Adol or Pedi 2003-06-04 Completed Unive rsity of Dosage 00:00:00 [facility] MMR 2003-06-04 Completed [facility] of 00:00:00 [facility] Polio (IPV/OPV) 2003-06-04 Completed [facility] 00:00:00 [facility] Varicella 2003-06-04 Completed [facility] of (varivax)(chicken 00:00:00 [place] [facility] pox) Branch DTAP 2003-06-04 Completed [facility] 00:00:00 [facility] HIB 3 Dose Schedule 2003-06-04 Completed Unive rsity of 00:00:00 [facility] Hep B, Adol or Pedi 2003-06-04 Completed Unive rsity of Dosage 00:00:00 [facility] MMR 2003-06-04 Completed [facility] of 00:00:00 [facility] Polio (IPV/OPV) 2003-06-04 Completed [facility] 00:00:00 [facility] Varicella 2003-06-04 Completed [facility] of (varivax)(chicken 00:00:00 [place] [facility] pox) Branch DTAP 2003-06-04 Completed [facility] 00:00:00 [facility] HIB 3 Dose Schedule 2003-06-04 Completed Unive rsity of 00:00:00 [facility] Hep B, Adol or Pedi 2003-06-04 Completed Unive rsity of Dosage 00:00:00 [facility] MMR 2003-06-04 Completed [facility] of 00:00:00 [facility] Polio (IPV/OPV) 2003-06-04 Completed [facility] 00:00:00 [facility] Varicella 2003-06-04 Completed [facility] of (varivax)(chicken 00:00:00 [place] [facility] pox) Branch DTAP 2003-06-04 Completed [facility] 00:00:00 [facility] HIB 3 Dose Schedule 2003-06-04 Completed Unive rsity of 00:00:00 [facility] Hep B, Adol or Pedi 2003-06-04 Completed Unive rsity of Dosage 00:00:00 [facility] MMR 2003-06-04 Completed [facility] of 00:00:00 [facility] Polio (IPV/OPV) 2003-06-04 Completed [facility] 00:00:00 [facility] Varicella 2003-06-04 Completed [facility] of (varivax)(chicken 00:00:00 [place] [facility] pox) Branch DTAP 2003-06-04 Completed [facility] 00:00:00 [facility] HIB 3 Dose Schedule 2003-06-04 Completed Unive rsity of 00:00:00 [facility] Hep B, Adol or Pedi 2003-06-04 Completed Unive rsity of Dosage 00:00:00 [facility] MMR 2003-06-04 Completed [facility] of 00:00:00 [facility] Polio (IPV/OPV) 2003-06-04 Completed [facility] 00:00:00 [facility] Varicella 2003-06-04 Completed [facility] of (varivax)(chicken 00:00:00 [place] [facility] pox) Branch DTAP 2003-06-04 Completed [facility] 00:00:00 [facility] HIB 3 Dose Schedule 2003-06-04 Completed Unive rsity of 00:00:00 [facility] Hep B, Adol or Pedi 2003-06-04 Completed Unive rsity of Dosage 00:00:00 [facility] MMR 2003-06-04 Completed [facility] of 00:00:00 [facility] Polio (IPV/OPV) 2003-06-04 Completed [facility] 00:00:00 [facility] Varicella 2003-06-04 Completed [facility] of (varivax)(chicken 00:00:00 [place] [facility] pox) Branch DTAP 2003-06-04 Completed [facility] 00:00:00 [facility] HIB 3 Dose Schedule 2003-06-04 Completed Unive rsity of 00:00:00 [facility] Hep B, Adol or Pedi 2003-06-04 Completed Unive rsity of Dosage 00:00:00 [facility] MMR 2003-06-04 Completed [facility] of 00:00:00 [facility] Polio (IPV/OPV) 2003-06-04 Completed [facility] 00:00:00 [facility] Varicella 2003-06-04 Completed [facility] of (varivax)(chicken 00:00:00 [place] [facility] pox) Branch DTAP 2003-06-04 Completed [facility] 00:00:00 [facility] HIB 3 Dose Schedule 2003-06-04 Completed Unive rsity of 00:00:00 [facility] Hep B, Adol or Pedi 2003-06-04 Completed Unive rsity of Dosage 00:00:00 [facility] MMR 2003-06-04 Completed [facility] of 00:00:00 [facility] Polio (IPV/OPV) 2003-06-04 Completed [facility] 00:00:00 [facility] Varicella 2003-06-04 Completed [facility] of (varivax)(chicken 00:00:00 [place] [facility] pox) Branch DTAP 2003-06-04 Completed [facility] 00:00:00 [facility] HIB 3 Dose Schedule 2003-06-04 Completed Unive rsity of 00:00:00 [facility] Hep B, Adol or Pedi 2003-06-04 Completed Unive rsity of Dosage 00:00:00 [facility] MMR 2003-06-04 Completed [facility] of 00:00:00 [facility] Polio (IPV/OPV) 2003-06-04 Completed [facility] 00:00:00 [facility] Varicella 2003-06-04 Completed [facility] of (varivax)(chicken 00:00:00 [place] [facility] pox) Branch DTAP 2003-06-04 Completed [facility] 00:00:00 [facility] HIB 3 Dose Schedule 2003-06-04 Completed Unive rsity of 00:00:00 [facility] Hep B, Adol or Pedi 2003-06-04 Completed Unive rsity of Dosage 00:00:00 [facility] MMR 2003-06-04 Completed [facility] of 00:00:00 [facility] Polio (IPV/OPV) 2003-06-04 Completed [facility] 00:00:00 [facility] Varicella 2003-06-04 Completed [facility] of (varivax)(chicken 00:00:00 [place] [facility] pox) Branch DTAP 2003-06-04 Completed [facility] 00:00:00 [facility] HIB 3 Dose Schedule 2003-06-04 Completed [facility]ive rsity of 00:00:00 [facility] Hep B, Adol or Pedi 2003-06-04 Completed Unive rsity of Dosage 00:00:00 [facility] MMR 2003-06-04 Completed [facility] of 00:00:00 [facility] Polio (IPV/OPV) 2003-06-04 Completed [facility] 00:00:00 [facility] Varicella 2003-06-04 Completed [facility] of (varivax)(chicken 00:00:00 [place] [facility] pox) Branch DTAP 2003-06-04 Completed [facility] 00:00:00 [facility] HIB 3 Dose Schedule 2003-06-04 Completed [facility]ive rsity of 00:00:00 [facility] Hep B, Adol or Pedi 2003-06-04 Completed Unive rsity of Dosage 00:00:00 [facility] MMR 2003-06-04 Completed [facility] 00:00:00 [facility] Polio (IPV/OPV) 2003-06-04 Completed [facility] 00:00:00 [facility] Varicella 2003-06-04 Completed [facility] of (varivax)(chicken 00:00:00 [place] [facility] pox) Branch DTAP 2003-06-04 Completed [facility] 00:00:00 [facility] HIB 3 Dose Schedule 2003-06-04 Completed [facility]ive rsity of 00:00:00 [facility] Hep B, Adol or Pedi 2003-06-04 Completed [facility]ive rsity of Dosage 00:00:00 [facility] MMR 2003-06-04 Completed [facility] of 00:00:00 [facility] Polio (IPV/OPV) 2003-06-04 Completed [facility] 00:00:00 [facility] Varicella 2003-06-04 Completed [facility] of (varivax)(chicken 00:00:00 [place] [facility]ox[facility] DTAP 2003-06-04 Completed [facility] 00:00:00 [facility] HIB 3 Dose Schedule 2003-06-04 Completed [facility] rs[facility] of 00:00:00 [facility] Hep B, Adol or Pedi 2003-06-04 Completed [facility] of Dosage 00:00:00 [facility] MMR 2003-06-04 Completed [facility] of 00:00:00 [facility] Polio (IPV/OPV) 2003-06-04 Completed [facility] 00:00:00 [facility] Varicella 2003-06-04 Completed [facility] of (varivax)(chicken 00:00:00 [place] [facility] DTAP 2003-06-04 Completed [facility] 00:00:00 [facility] HIB 3 Dose Schedule 2003-06-04 Completed [facility] rs[facility] of 00:00:00 [facility] Hep B, Adol or Pedi 2003-06-04 Completed [facility] of Dosage 00:00:00 [facility] MMR 2003-06-04 Completed [facility] of 00:00:00 [facility] Polio (IPV/OPV) 2003-06-04 Completed [facility] 00:00:00 [facility] Varicella 2003-06-04 Completed [facility] (varivax)(chicken 00:00:00 [place] [facility] DTAP 2003-06-04 Completed [facility] 00:00:00 [facility] HIB 3 Dose Schedule 2003-06-04 Completed [facility] rs[facility] of 00:00:00 [facility] Hep B, Adol or Pedi 2003-06-04 Completed [facility] of Dosage 00:00:00 [facility] MMR 2003-06-04 Completed [facility] 00:00:00 [facility] Polio (IPV/OPV) 2003-06-04 Completed [facility] 00:00:00 [facility] Varicella 2003-06-04 Completed [facility] (varivax)(chicken 00:00:00 [place] [facility]ox[facility] DTAP 2003-06-04 Completed [facility] 00:00:00 [facility] HIB 3 Dose Schedule 2003-06-04 Completed [facility] rs[facility] of 00:00:00 [facility] Hep B, Adol or Pedi 2003-06-04 Completed [facility] of Dosage 00:00:00 [facility] MMR 2003-06-04 Completed [facility] 00:00:00 [facility] Polio (IPV/OPV) 2003-06-04 Completed [facility] 00:00:00 [facility] Varicella 2003-06-04 Completed [facility] (varivax)(chicken 00:00:00 [place] [facility]ox[facility] DTAP 2003-06-04 Completed [facility] 00:00:00 [facility] HIB 3 Dose Schedule 2003-06-04 Completed [facility] 00:00:00 [facility] Hep B, Adol or Pedi 2003-06-04 Completed [facility] of Dosage 00:00:00 [facility] MMR 2003-06-04 Completed [facility] 00:00:00 [facility] Polio (IPV/OPV) 2003-06-04 Completed [facility] 00:00:00 [facility] Varicella 2003-06-04 Completed [facility] (varivax)(chicken 00:00:00 [place] [facility]ox[facility] DTAP 2003-06-04 Completed [facility] 00:00:00 [facility] HIB 3 Dose Schedule 2003-06-04 Completed [facility] rs[facility] of 00:00:00 [facility] Hep B, Adol or Pedi 2003-06-04 Completed [facility] of Dosage 00:00:00 [facility] MMR 2003-06-04 Completed [facility] of 00:00:00 [facility] Polio (IPV/OPV) 2003-06-04 Completed [facility] 00:00:00 [facility] Varicella 2003-06-04 Completed [facility] (varivax)(chicken 00:00:00 [place] [facility]ox[facility] DTAP 2003-06-04 Completed [facility] 00:00:00 [facility] HIB 3 Dose Schedule 2003-06-04 Completed [facility] of 00:00:00 [facility] Hep B, Adol or Pedi 2003-06-04 Completed [facility] of Dosage 00:00:00 [facility] MMR 2003-06-04 Completed [facility] of 00:00:00 [facility] Polio (IPV/OPV) 2003-06-04 Completed [facility] 00:00:00 [facility] Varicella 2003-06-04 Completed [facility] (varivax)(chicken 00:00:00 [place] [facility] pox[facility] DTAP 2003-06-04 Completed [facility] 00:00:00 [facility] HIB 3 Dose Schedule 2003-06-04 Completed [facility] of 00:00:00 [facility] Hep B, Adol or Pedi 2003-06-04 Completed [facility] rs[facility] of Dosage 00:00:00 [facility] MMR 2003-06-04 Completed [facility] of 00:00:00 [facility] Polio (IPV/OPV) 2003-06-04 Completed [facility] 00:00:00 [facility] Varicella 2003-06-04 Completed [facility] (varivax)(chicken 00:00:00 [place] [facility] pox[facility] DTAP 2003-06-04 Completed [facility] 00:00:00 [facility] HIB 3 Dose Schedule 2003-06-04 Completed [facility] rs[facility] of 00:00:00 [facility] Hep B, Adol or Pedi 2003-06-04 Completed [facility] of Dosage 00:00:00 [facility] MMR 2003-06-04 Completed [facility] of 00:00:00 [facility] Polio (IPV/OPV) 2003-06-04 Completed [facility] 00:00:00 [facility] Varicella 2003-06-04 Completed [facility] (varivax)(chicken 00:00:00 [place] [facility] pox[facility] DTAP 2003-06-04 Completed [facility] 00:00:00 [facility] HIB 3 Dose Schedule 2003-06-04 Completed [facility] of 00:00:00 [facility] Hep B, Adol or Pedi 2003-06-04 Completed [facility] rs[facility] of Dosage 00:00:00 [facility] MMR 2003-06-04 Completed [facility] of 00:00:00 [facility] Polio (IPV/OPV) 2003-06-04 Completed [facility] 00:00:00 [facility] Varicella 2003-06-04 Completed [facility] (varivax)(chicken 00:00:00 [place] [facility] pox[facility] DTAP 2003-06-04 Completed [facility] 00:00:00 [facility] HIB 3 Dose Schedule 2003-06-04 Completed [facility] rs[facility] of 00:00:00 [facility] Hep B, Adol or Pedi 2003-06-04 Completed [facility] rs[facility] of Dosage 00:00:00 [facility] MMR 2003-06-04 Completed [facility] of 00:00:00 [facility] Polio (IPV/OPV) 2003-06-04 Completed [facility] 00:00:00 [facility] Varicella 2003-06-04 Completed [facility] (varivax)(chicken 00:00:00 [place] [facility]ox[facility] DTAP 2003-06-04 Completed [facility] 00:00:00 [facility] HIB 3 Dose Schedule 2003-06-04 Completed [facility] rs[facility] of 00:00:00 [facility] Hep B, Adol or Pedi 2003-06-04 Completed [facility]ive rsity of Dosage 00:00:00 [facility] MMR 2003-06-04 Completed [facility] of 00:00:00 [facility] Polio (IPV/OPV) 2003-06-04 Completed [facility] 00:00:00 [facility] Varicella 2003-06-04 Completed [facility] (varivax)(chicken 00:00:00 [place] [facility] pox[facility] DTAP 2003-06-04 Completed [facility] 00:00:00 [facility] HIB 3 Dose Schedule 2003-06-04 Completed [facility] rs[facility] of 00:00:00 [facility] Hep B, Adol or Pedi 2003-06-04 Completed [facility]ive rs[facility] of Dosage 00:00:00 [facility] MMR 2003-06-04 Completed [facility] of 00:00:00 [facility] Polio (IPV/OPV) 2003-06-04 Completed [facility] 00:00:00 [facility] Varicella 2003-06-04 Completed [facility] (varivax)(chicken 00:00:00 [place] [facility] pox[facility] DTAP 2003-06-04 Completed [facility] 00:00:00 [facility] HIB 3 Dose Schedule 2003-06-04 Completed [facility] rs[facility] of 00:00:00 [facility] Hep B, Adol or Pedi 2003-06-04 Completed [facility] of Dosage 00:00:00 [facility] MMR 2003-06-04 Completed [facility] of 00:00:00 [facility] Polio (IPV/OPV) 2003-06-04 Completed [facility] 00:00:00 [facility] Varicella 2003-06-04 Completed [facility] (varivax)(chicken 00:00:00 [place] [facility] pox[facility] DTAP 2003-06-04 Completed [facility] 00:00:00 [facility] HIB 3 Dose Schedule 2003-06-04 Completed [facility]ive rsity of 00:00:00 [facility] Hep B, Adol or Pedi 2003-06-04 Completed [facility]ive rsity of Dosage 00:00:00 [facility] MMR 2003-06-04 Completed [facility] of 00:00:00 [facility] Polio (IPV/OPV) 2003-06-04 Completed [facility] 00:00:00 [facility] Varicella 2003-06-04 Completed [facility] (varivax)(chicken 00:00:00 [place] [facility] pox[facility] DTAP 2003-06-04 Completed [facility] 00:00:00 [facility] HIB 3 Dose Schedule 2003-06-04 Completed [facility] rsity of 00:00:00 [facility] Hep B, Adol or Pedi 2003-06-04 Completed [facility]ive rsity of Dosage 00:00:00 [facility] MMR 2003-06-04 Completed [facility] of 00:00:00 [facility] Polio (IPV/OPV) 2003-06-04 Completed [facility] 00:00:00 [facility] Varicella 2003-06-04 Completed [facility] (varivax)(chicken 00:00:00 [place] [facility] pox) [facility] DTAP 2003-06-04 Completed [facility] 00:00:00 [facility] HIB 3 Dose Schedule 2003-06-04 Completed [facility]ive rsity of 00:00:00 [facility] Hep B, Adol or Pedi 2003-06-04 Completed [facility]ive [facility]ity of Dosage 00:00:00 [facility] MMR 2003-06-04 Completed [facility] of 00:00:00 [facility] Polio (IPV/OPV) 2003-06-04 Completed [facility] 00:00:00 [facility] Varicella 2003-06-04 Completed [facility] (varivax)(chicken 00:00:00 [place] [facility] pox) [facility] DTaP, Unspecified 2003-06-04 Completed Univers ity of Formulation 00:00:00 [facility] HIB 4 Dose Schedule 2003-06-04 Completed [facility]ive rsity of 00:00:00 [facility] IPV 2003-06-04 Completed [facility] 00:00:00 [facility] DTAP 2003-06-04 Completed [facility] of 00:00:00 [facility] HIB 3 Dose Schedule 2003-06-04 Completed [facility]ive rsity of 00:00:00 [facility] Hep B, Adol or Pedi 2003-06-04 Completed [facility]ive [facility] of Dosage 00:00:00 [facility] MMR 2003-06-04 Completed [facility] 00:00:00 [facility] Polio (IPV/OPV) 2003-06-04 Completed [facility] 00:00:00 [facility] Varicella 2003-06-04 Completed [facility] (varivax)(chicken 00:00:00 [place] [facility] pox) [facility] DTaP, Unspecified 2003-06-04 Completed [facility] ity of Formulation 00:00:00 [facility] HIB 4 Dose Schedule 2003-06-04 Completed [facility]ive rsity of 00:00:00 [facility] IPV 2003-06-04 Completed [facility] of 00:00:00 [facility] DTAP 2003-06-04 Completed [facility] of 00:00:00 [facility] HIB 3 Dose Schedule 2003-06-04 Completed [facility]ive rsity of 00:00:00 [facility] Hep B, Adol or Pedi 2003-06-04 Completed [facility]ive rsity of Dosage 00:00:00 [facility] MMR 2003-06-04 Completed [facility] of 00:00:00 [facility] Polio (IPV/OPV) 2003-06-04 Completed [facility] 00:00:00 [facility] Varicella 2003-06-04 Completed [facility] (varivax)(chicken 00:00:00 [place] [facility] pox) [facility] DTaP, Unspecified 2003-06-04 Completed Univers ity of Formulation 00:00:00 [facility] HIB 4 Dose Schedule 2003-06-04 Completed Unive rsity of 00:00:00 [facility] IPV 2003-06-04 Completed [facility] of 00:00:00 [facility] DTAP 2003-06-04 Completed University of 00:00:00 [facility] HIB 3 Dose Schedule 2003-06-04 Completed [facility]ive rsity of 00:00:00 [facility] Hep B, Adol or Pedi 2003-06-04 Completed Unive rsity of Dosage 00:00:00 [facility] MMR 2003-06-04 Completed [facility] of 00:00:00 [facility] Polio (IPV/OPV) 2003-06-04 Completed [facility] 00:00:00 [facility] Varicella 2003-06-04 Completed [facility] of (varivax)(chicken 00:00:00 [place] [facility] pox) [facility] DTaP, Unspecified 2003-06-04 Completed Univers ity of Formulation 00:00:00 [facility] HIB 4 Dose Schedule 2003-06-04 Completed Unive rsity of 00:00:00 [facility] IPV 2003-06-04 Completed [facility] of 00:00:00 [facility] DTAP 2003-06-04 Completed [facility] of 00:00:00 [facility] HIB 3 Dose Schedule 2003-06-04 Completed [facility]ive rsity of 00:00:00 [facility] Hep B, Adol or Pedi 2003-06-04 Completed [facility]ive rsity of Dosage 00:00:00 [facility] MMR 2003-06-04 Completed [facility] of 00:00:00 [facility] Polio (IPV/OPV) 2003-06-04 Completed [facility] 00:00:00 [facility] Varicella 2003-06-04 Completed [facility] of (varivax)(chicken 00:00:00 [facility] [place] edical pox) Branch DTaP, Unspecified 2003-06-04 Completed Univers ity of Formulation 00:00:00 [facility] HIB 4 Dose Schedule 2003-06-04 Completed Unive rsity of 00:00:00 [facility] IPV 2003-06-04 Completed University of 00:00:00 [facility] DTAP 2003-06-04 Completed University of 00:00:00 [facility] HIB 3 Dose Schedule 2003-06-04 Completed [facility]ive rsity of 00:00:00 [facility] Hep B, Adol or Pedi 2003-06-04 Completed Unive rsity of Dosage 00:00:00 [facility] MMR 2003-06-04 Completed [facility] of 00:00:00 [facility] Polio (IPV/OPV) 2003-06-04 Completed [facility] 00:00:00 [facility] Varicella 2003-06-04 Completed [facility] (varivax)(chicken 00:00:00 [place] [facility] pox) [facility] DTaP, Unspecified 2003-06-04 Completed Univers ity of Formulation 00:00:00 [facility] HIB 4 Dose Schedule 2003-06-04 Completed Unive rsity of 00:00:00 [facility] IPV 2003-06-04 Completed University of 00:00:00 [facility] DTAP 2003-06-04 Completed University of 00:00:00 [facility] HIB 3 Dose Schedule 2003-06-04 Completed [facility]ive rsity of 00:00:00 [facility] Hep B, Adol or Pedi 2003-06-04 Completed Unive rsity of Dosage 00:00:00 [facility] MMR 2003-06-04 Completed University of 00:00:00 [facility] Polio (IPV/OPV) 2003-06-04 Completed [facility] 00:00:00 [facility] Varicella 2003-06-04 Completed [facility] of (varivax)(chicken 00:00:00 [place] [facility] pox) Branch DTaP, Unspecified 2003-06-04 Completed Univers ity of Formulation 00:00:00 [facility] HIB 4 Dose Schedule 2003-06-04 Completed Unive rsity of 00:00:00 [facility] IPV 2003-06-04 Completed University of 00:00:00 [facility] DTAP 2003-06-04 Completed University of 00:00:00 [facility] HIB 3 Dose Schedule 2003-06-04 Completed Unive rsity of 00:00:00 [facility] Hep B, Adol or Pedi 2003-06-04 Completed Unive rsity of Dosage 00:00:00 [facility] MMR 2003-06-04 Completed [facility] of 00:00:00 [facility] Polio (IPV/OPV) 2003-06-04 Completed [facility] 00:00:00 [facility] Varicella 2003-06-04 Completed [facility] of (varivax)(chicken 00:00:00 [place] [facility] pox) Branch DTaP, Unspecified 2003-06-04 Completed [facility] ity of Formulation 00:00:00 [facility] HIB 4 Dose Schedule 2003-06-04 Completed Unive rsity of 00:00:00 [facility] IPV 2003-06-04 Completed University of 00:00:00 [facility] DTAP 2003-06-04 Completed University of 00:00:00 [facility] HIB 3 Dose Schedule 2003-06-04 Completed Unive rsity of 00:00:00 [facility] Hep B, Adol or Pedi 2003-06-04 Completed Unive rsity of Dosage 00:00:00 [facility] MMR 2003-06-04 Completed University of 00:00:00 [facility] Polio (IPV/OPV) 2003-06-04 Completed [facility] 00:00:00 [facility] Varicella 2003-06-04 Completed [facility] of (varivax)(chicken 00:00:00 [place] [facility] pox) Branch DTaP, Unspecified 2003-06-04 Completed Univers ity of Formulation 00:00:00 [facility] HIB 4 Dose Schedule 2003-06-04 Completed Unive rsity of 00:00:00 [facility] IPV 2003-06-04 Completed University of 00:00:00 [facility] DTAP 2003-06-04 Completed University of 00:00:00 [facility] HIB 3 Dose Schedule 2003-06-04 Completed Unive rsity of 00:00:00 [facility] Hep B, Adol or Pedi 2003-06-04 Completed Unive rsity of Dosage 00:00:00 [facility] MMR 2003-06-04 Completed University of 00:00:00 [facility] Polio (IPV/OPV) 2003-06-04 Completed [facility] 00:00:00 [facility] Varicella 2003-06-04 Completed [facility] of (varivax)(chicken 00:00:00 [place] [facility] pox) Branch DTaP, Unspecified 2003-06-04 Completed Univers ity of Formulation 00:00:00 [facility] HIB 4 Dose Schedule 2003-06-04 Completed Unive rsity of 00:00:00 [facility] IPV 2003-06-04 Completed University of 00:00:00 [facility] DTAP 2003-06-04 Completed University of 00:00:00 [facility] HIB 3 Dose Schedule 2003-06-04 Completed Unive rsity of 00:00:00 [facility] Hep B, Adol or Pedi 2003-06-04 Completed Unive rsity of Dosage 00:00:00 [facility] MMR 2003-06-04 Completed [facility] of 00:00:00 [facility] Polio (IPV/OPV) 2003-06-04 Completed [facility] 00:00:00 [facility] Varicella 2003-06-04 Completed [facility] of (varivax)(chicken 00:00:00 [place] [facility] pox) Branch DTaP, Unspecified 2003-06-04 Completed [facility] ity of Formulation 00:00:00 [facility] HIB 4 Dose Schedule 2003-06-04 Completed Unive rsity of 00:00:00 [facility] IPV 2003-06-04 Completed [facility] of 00:00:00 [facility] DTAP 2003-06-04 Completed University of 00:00:00 [facility] HIB 3 Dose Schedule 2003-06-04 Completed Unive rsity of 00:00:00 [facility] Hep B, Adol or Pedi 2003-06-04 Completed Unive rsity of Dosage 00:00:00 [facility] MMR 2003-06-04 Completed University of 00:00:00 [facility] Polio (IPV/OPV) 2003-06-04 Completed [facility] 00:00:00 [facility] Varicella 2003-06-04 Completed [facility] of (varivax)(chicken 00:00:00 [place] [facility] pox) Branch DTaP, Unspecified 2003-06-04 Completed [facility] ity of Formulation 00:00:00 [facility] HIB 4 Dose Schedule 2003-06-04 Completed Unive rsity of 00:00:00 [facility] IPV 2003-06-04 Completed University of 00:00:00 [facility] DTAP 2003-06-04 Completed University of 00:00:00 [facility] HIB 3 Dose Schedule 2003-06-04 Completed Unive rsity of 00:00:00 [facility] Hep B, Adol or Pedi 2003-06-04 Completed Unive rsity of Dosage 00:00:00 [facility] MMR 2003-06-04 Completed University of 00:00:00 [facility] Polio (IPV/OPV) 2003-06-04 Completed [facility] 00:00:00 [facility] Varicella 2003-06-04 Completed [facility] of (varivax)(chicken 00:00:00 [place] [facility] pox) Branch DTaP, Unspecified 2003-06-04 Completed Univers ity of Formulation 00:00:00 [facility] HIB 4 Dose Schedule 2003-06-04 Completed Unive rsity of 00:00:00 [facility] IPV 2003-06-04 Completed University of 00:00:00 [facility] DTAP 2003-06-04 Completed University of 00:00:00 [facility] HIB 3 Dose Schedule 2003-06-04 Completed Unive rsity of 00:00:00 [facility] Hep B, Adol or Pedi 2003-06-04 Completed Unive rsity of Dosage 00:00:00 [facility] MMR 2003-06-04 Completed University of 00:00:00 [facility] Polio (IPV/OPV) 2003-06-04 Completed [facility] 00:00:00 [facility] Varicella 2003-06-04 Completed [facility] of (varivax)(chicken 00:00:00 [facility] [place] edical pox) Branch DTaP, Unspecified 2003-06-04 Completed Univers ity of Formulation 00:00:00 [facility] HIB 4 Dose Schedule 2003-06-04 Completed Unive rsity of 00:00:00 [facility] IPV 2003-06-04 Completed [facility] of 00:00:00 [facility] DTAP 2003-06-04 Completed University of 00:00:00 [facility] HIB 3 Dose Schedule 2003-06-04 Completed Unive rsity of 00:00:00 [facility] Hep B, Adol or Pedi 2003-06-04 Completed Unive rsity of Dosage 00:00:00 [facility] MMR 2003-06-04 Completed University of 00:00:00 [facility] Polio (IPV/OPV) 2003-06-04 Completed [facility] 00:00:00 [facility] Varicella 2003-06-04 Completed [facility] of (varivax)(chicken 00:00:00 [facility] [place] edical pox) Branch DTaP, Unspecified 2003-06-04 Completed Univers ity of Formulation 00:00:00 [facility] HIB 4 Dose Schedule 2003-06-04 Completed Unive rsity of 00:00:00 [facility] IPV 2003-06-04 Completed University of 00:00:00 [facility] Vital Signs Vital Name Observation Time Observation Value Comments Source Systolic blood 2022-07-23 18:30:00 130 mm[Hg] Univer [facility]ity of pressure [facility] Diastolic blood 2022-07-23 18:30:00 84 mm[Hg] Unive rsity of pressure [facility] Heart rate 2022-07-23 18:30:00 115 /min [facility] Body temperature 2022-07-23 18:30:[address] [facility] [place] [place] [facility] 2022-07-23 18:30:00 18 /min [facility] [place] [facility] [place] [facility] Oxygen saturation in 2022-07-23 18:30:00 99 /min University of Arterial blood by [place] en-Gauge lottie Pulse oximetry Branch Body height 2022-07-21 15:36:00 167.6 cm [facility] [place] [facility] Body weight 2022-07-21 15:36:00 89.359 kg [facility] [place] [facility] BMI 2022-07-21 15:36:00 31.80 kg/m2 [facility] [place] [facility] Systolic blood 2022-07-21 18:00:00 131 mm[Hg] Univer sity of pressure [place] [facility] Diastolic blood 2022-07-21 18:00:00 84 mm[Hg] Unive rsity of pressure [facility] Heart rate 2022-07-21 18:00:00 104 /min [facility] [place] [facility] Body temperature 2022-07-21 18:00:00 36.56 Nabila Univ [facility] [place] [facility] Respiratory rate 2022-07-21 18:00:00 18 /min Univ [facility] [place] [facility] Oxygen saturation in 2022-07-21 18:00:00 100 /min University of Arterial blood by [facility] Pulse oximetry Branch Body height 2022-07-21 15:36:00 167.6 cm [facility]i [facility] [place] [facility] Body weight 2022-07-21 15:36:00 89.359 kg [facility] [place] [facility] BMI 2022-07-21 15:36:00 31.80 kg/m2 [facility] [place] [facility] Systolic blood 2022-07-17 17:09:00 103 mm[Hg] Univer sity of pressure [place] [facility] Diastolic blood 2022-07-17 17:09:00 51 mm[Hg] Unive rsity of pressure [facility] Heart rate 2022-07-17 17:09:00 82 /min [facility] [place] [facility] Body temperature 2022-07-17 17:09:00 36.56 Nabila Univ [facility] [place] [facility] Respiratory rate 2022-07-17 17:09:00 16 /min Univ [facility] [place] [facility] Oxygen saturation in 2022-07-17 17:09:00 99 /min University of Arterial blood by [place] en[place]Gauge lottie Pulse oximetry Branch Body height 2022-07-17 15:58:00 167.6 cm 5' 6" [facility] [place] [facility] Body weight 2022-07-17 15:58:00 87.816 kg 193.6lb [facility] [place] [facility] BMI 2022-07-17 15:58:00 31.25 kg/m2 [facility] [place] [facility] Diastolic blood 2022-07-11 06:00:00 68 mm[Hg] Unive rsity of pressure [facility] Heart rate 2022-07-11 06:00:00 100 /min Universi ty of [facility] Oxygen saturation in 2022-07-11 06:00:00 99 /min [facility] Arterial blood by [facility] Pulse oximetry Branch Systolic blood 2022-07-11 06:00:00 121 mm[Hg] Univer sity of pressure [facility] Body temperature 2022-07-11 04:00:00 36.78 Nabila Univ ersity of [facility] Respiratory rate 2022-07-11 04:00:00 18 /min Univ ersity of [facility] Body height 2022-07-11 04:00:00 167.6 cm [facility]i [facility] [place] [facility] Body weight 2022-07-11 04:00:00 89.313 kg [facility] [place] [facility] BMI 2022-07-11 04:00:00 31.78 kg/m2 [facility] [place] [facility] Systolic blood 2022-07-08 19:21:00 133 mm[Hg] Univer sity of [facility] Diastolic blood 2022-07-08 19:21:00 79 mm[Hg] Unive rsity of [facility] Heart rate 2022-07-08 19:21:00 94 /min [facility]i ty [facility] [place] [facility] Body temperature 2022-07-08 19:21:00 36.22 Nabila Univ [facility] [place] [facility] Respiratory rate 2022-07-08 19:21:00 18 /min Univ ersity of [facility] Body height 2022-07-08 19:21:00 167.6 cm [facility] [place] [facility] Body weight 2022-07-08 19:21:00 86.909 kg [facility] [place] [facility] BMI 2022-07-08 19:21:00 30.93 kg/m2 Universi ty of [facility] Heart rate 2022-07-06 09:15:00 96 /min Universi ty of [facility] Oxygen saturation in 2022-07-06 09:15:00 99 /min University Arterial blood by [facility] Pulse oximetry Branch Systolic blood 2022-07-06 05:20:00 121 mm[Hg] Univer sity of pressure [place] [facility] Diastolic blood 2022-07-06 05:20:00 70 mm[Hg] Unive rsity of pressure [facility] Body temperature 2022-07-06 05:20:00 37.06 Nabila Univ ersity of [facility] Body height 2022-07-06 05:20:00 167.6 cm [facility] [place] [facility] Body weight 2022-07-06 05:20:00 86.637 kg [facility] [place] [facility] BMI 2022-07-06 05:20:00 30.83 kg/m2 Universi ty of [facility] Respiratory rate 2022-07-06 05:01:00 16 /min Univ ersity of [facility] Systolic blood 2022-06-23 19:46:00 135 mm[Hg] Univer sity of [facility] [place] [facility] Diastolic blood 2022-06-23 19:46:00 85 mm[Hg] Unive rsity of pressure [place] [facility] Heart rate 2022-06-23 19:46:00 102 /min [facility] [place] [facility] Body temperature 2022-06-23 19:46:00 36.11 Nabila Univ ersity of [facility] Respiratory rate 2022-06-23 19:46:00 18 /min Univ ersity of [facility] Body height 2022-06-23 19:46:00 167.6 cm [facility]i [facility] [place] [facility] Body weight 2022-06-23 19:46:00 85.004 kg [facility] [place] [facility] BMI 2022-06-23 19:46:00 30.25 kg/m2 [facility] [place] [facility] Systolic blood 2022-06-09 18:04:00 110 mm[Hg] Univer sity of pressure [facility] Diastolic blood 2022-06-09 18:04:00 60 mm[Hg] Unive rsity of pressure [facility] Heart rate 2022-06-09 17:59:00 112 /min Universi ty of [facility] Body temperature 2022-06-09 17:57:00 36.28 Nabila Univ [facility] [place] [facility] Respiratory rate 2022-06-09 17:57:00 18 /min Univ ers[facility] [place] [facility] Body height 2022-06-09 17:57:00 170.2 cm [facility] [place] [facility] Body weight 2022-06-09 17:57:00 85.911 kg [facility] [place] [facility] BMI 2022-06-09 17:57:00 29.66 kg/m2 [facility] [place] [facility] Body temperature 2022-06-02 15:34:00 36.72 Nabila Univ [facility] [place] [facility] Body weight 2022-06-02 15:34:00 85.73 kg [facility] [place] [facility] BMI 2022-06-02 15:34:00 30.51 kg/m2 [facility] [place] [facility] Systolic blood 2022-05-26 15:34:00 111 mm[Hg] Univer sity of [facility] [place] [facility] Diastolic blood 2022-05-26 15:34:00 71 mm[Hg] Unive rsity of [facility] [place] [facility] Heart rate 2022-05-26 15:34:00 87 /min [facility] [place] [facility] Body temperature 2022-05-26 15:34:00 36.33 Nabila Univ [facility] [place] [facility] Respiratory rate 2022-05-26 15:34:00 18 /min Univ ers[facility] [place] [facility] Body height 2022-05-26 15:34:00 167.6 cm [facility] [place] [facility] Body weight 2022-05-26 15:34:00 85.73 kg [facility] [place] [facility] BMI 2022-05-26 15:34:00 30.51 kg/m2 [facility] [place] [facility] Body temperature 2022-05-19 15:46:00 36.17 Nabila Univ [facility] [place] [facility] Body weight 2022-05-19 15:46:00 85.095 kg [facility] [place] [facility] BMI 2022-05-19 15:46:00 30.28 kg/m2 [facility] [place] [facility] Systolic blood 2022-05-12 20:15:00 122 mm[Hg] Univer sity of pressure [place] [facility] Diastolic blood 2022-05-12 20:15:00 67 mm[Hg] Unive rsity of [facility] [place] [facility] Heart rate 2022-05-12 20:15:00 85 /min [facility] [place] [facility] Body temperature 2022-05-12 20:15:00 35.83 Nabila Univ ersity [facility] [place] [facility] Respiratory rate 2022-05-12 20:15:00 18 /min Univ ers[facility] [place] [facility] Body height 2022-05-12 20:15:00 167.6 cm [facility] [place] [facility] Body weight 2022-05-12 20:15:00 83.961 kg [facility] [place] [facility] BMI 2022-05-12 20:15:00 29.88 kg/m2 [facility] [place] [facility] Body temperature 2022-05-05 16:37:00 36.56 Nabila Univ [facility] [place] [facility] Body weight 2022-05-05 16:37:00 83.553 kg [facility] [place] [facility] Systolic blood 2022-04-28 17:19:00 128 mm[Hg] Univer sity of [facility] [place] [facility] Diastolic blood 2022-04-28 17:19:00 73 mm[Hg] Unive rsity of [facility] [place] [facility] Heart rate 2022-04-28 17:19:00 87 /min [facility]i [facility] [place] [facility] Body temperature 2022-04-28 17:19:00 37.06 Nabila Univ [facility] [place] [facility] Respiratory rate 2022-04-28 17:19:00 18 /min Univ ers[facility] [place] [facility] Body weight 2022-04-28 17:19:00 82.736 kg [facility]i [facility] [place] [facility] Body temperature 2022-04-21 16:16:00 36.61 Nabila Univ [facility] [place] [facility] Body weight 2022-04-21 16:16:00 81.421 kg [facility] [place] [facility] BMI 2022-04-21 16:16:00 28.97 kg/m2 [facility] [place] [facility] Systolic blood 2022-04-14 16:55:00 119 mm[Hg] Univer sity of [facility] Diastolic blood 2022-04-14 16:55:00 72 mm[Hg] Unive rsity of pressure [facility] Heart rate 2022-04-14 16:55:00 75 /min [facility] [place] [facility] Body temperature 2022-04-14 16:55:00 36.78 Nabila Univ [facility] [place] [facility] Respiratory rate 2022-04-14 16:55:00 16 /min Univ [facility] [place] [facility] Body height 2022-04-14 16:55:00 167.6 cm [facility] [place] [facility] Body weight 2022-04-14 16:55:00 79.742 kg [facility] [place] [facility] BMI 2022-04-14 16:55:00 28.37 kg/m2 [facility] [place] [facility] Systolic blood 2022-04-07 19:07:00 122 mm[Hg] Univer sity of [facility] [place] [facility] Diastolic blood 2022-04-07 19:07:00 76 mm[Hg] Unive rsity of pressure [facility] Heart rate 2022-04-07 19:07:00 95 /min [facility]i ty [facility] [place] [facility] Body temperature 2022-04-07 19:07:00 37.06 Nabila Univ [facility] [place] [facility] Respiratory rate 2022-04-07 19:07:00 20 /min Univ ers[facility] [place] [facility] Body weight 2022-04-07 19:07:00 78.835 kg [facility]i ty [facility] [place] [facility] Systolic blood 2022-03-31 15:59:00 118 mm[Hg] Univer sity of [facility] Diastolic blood 2022-03-31 15:59:00 76 mm[Hg] Unive rsity of pressure [facility] Heart rate 2022-03-31 15:59:00 82 /min [facility]i [facility] [place] [facility] Body temperature 2022-03-31 15:59:00 37.11 Nabila Univ [facility] [place] [facility] Respiratory rate 2022-03-31 15:59:00 18 /min Univ [facility] [place] [facility] Body height 2022-03-31 15:59:00 167.6 cm [facility] [place] [facility] Body weight 2022-03-31 15:59:00 76.885 kg [facility] [place] [facility] BMI 2022-03-31 15:59:00 27.36 kg/m2 [facility] [place] [facility] Body temperature 2022-03-24 15:55:00 36.61 Nabila Univ [facility] [place] [facility] Respiratory rate 2022-03-24 15:55:00 18 /min Univ ersity of [place] [facility] Body weight 2022-03-24 15:55:00 75.796 kg [facility]i ty [facility] [place] [facility] Systolic blood 2022-03-10 17:15:00 116 mm[Hg] Univer sity of [facility] Diastolic blood 2022-03-10 17:15:00 74 mm[Hg] Unive rsity of pressure [facility] Heart rate 2022-03-10 17:15:00 77 /min Universi ty [facility] [place] [facility] Body temperature 2022-03-10 17:15:00 36.94 Nabila Univ ersity [facility] [place] [facility] Respiratory rate 2022-03-10 17:15:00 20 /min Univ ersity [facility] [place] [facility] Body height 2022-03-10 17:15:00 167.6 cm [facility] [place] [facility] Body weight 2022-03-10 17:15:00 72.938 kg [facility] [place] [facility] BMI 2022-03-10 17:15:00 25.95 kg/m2 [facility] [place] [facility] Systolic blood 2022-02-24 16:18:00 109 mm[Hg] Univer sity of [facility] Diastolic blood 2022-02-24 16:18:00 68 mm[Hg] Unive rsity of pressure [facility] Heart rate 2022-02-24 16:18:00 83 /min [facility] Body temperature 2022-02-24 16:18:00 36.44 Nabila Univ ersity [facility] [place] [facility] Respiratory rate 2022-02-24 16:18:00 18 /min Univ ersity of [place] [facility] Body height 2022-02-24 16:18:00 167.6 cm [facility] Body weight 2022-02-24 16:18:00 69.673 kg [facility] [place] [facility] BMI 2022-02-24 16:18:00 24.79 kg/m2 [facility] [place] [facility] Systolic blood 2022-02-10 19:32:00 135 mm[Hg] Univer sity of pressure [facility] Diastolic blood 2022-02-10 19:32:00 90 mm[Hg] Unive rsity of [facility] Heart rate 2022-02-10 19:32:00 130 /min [facility]i ty [facility] [place] [facility] Body temperature 2022-02-10 19:32:00 36.89 Nabila Univ ers[facility] [place] [facility] Respiratory rate 2022-02-10 19:32:00 20 /min Univ ersity [facility] [place] [facility] Body height 2022-02-10 19:32:00 167.6 cm [facility] [place] [facility] Body weight 2022-02-10 19:32:00 71.215 kg [facility] [place] [facility] BMI 2022-02-10 19:32:00 25.34 kg/m2 [facility] [place] [facility] Systolic blood 2022-01-27 15:32:00 127 mm[Hg] Univer sity of [facility] Diastolic blood 2022-01-27 15:32:00 77 mm[Hg] Unive rsity of [facility] Heart rate 2022-01-27 15:32:00 99 /min [facility]i ty [facility] [place] [facility] Body temperature 2022-01-27 15:32:00 36.22 Nabila Univ [facility] [place] [facility] Respiratory rate 2022-01-27 15:32:00 20 /min Univ ersity [facility] [place] [facility] Body height 2022-01-27 15:32:00 167.6 cm [facility] [place] [facility] Body weight 2022-01-27 15:32:00 70.988 kg [facility] [place] [facility] BMI 2022-01-27 15:32:00 25.26 kg/m2 [facility] [place] [facility] Systolic blood 2021-12-23 14:24:00 118 mm[Hg] Univer sity of [facility] Diastolic blood 2021-12-23 14:24:00 77 mm[Hg] Unive rsity of pressure [facility] Heart rate 2021-12-23 14:24:00 87 /min [facility]i ty [facility] [place] [facility] Body temperature 2021-12-23 14:24:00 37 Nabila Univ [facility] Respiratory rate 2021-12-23 14:24:00 18 /min Univ ersity [facility] [place] [facility] Body height 2021-12-23 14:24:00 167.6 cm [facility] [place] [facility] Body weight 2021-12-23 14:24:00 70.761 kg [facility] BMI 2021-12-23 14:24:00 25.18 kg/m2 Universi ty of [facility] Systolic blood 2021-12-09 14:24:00 118 mm[Hg] Univer sity of pressure [facility] Diastolic blood 2021-12-09 14:24:00 79 mm[Hg] Unive rsity of pressure [facility] Heart rate 2021-12-09 14:24:00 88 /min Universi ty of [facility] Body temperature 2021-12-09 14:24:00 36.67 Nabila Univ ersity of [facility] Respiratory rate 2021-12-09 14:24:00 16 /min Univ ersity of [facility] Body height 2021-12-09 14:24:00 167.6 cm [facility]i ty [facility] [place] [facility] [place] Body weight 2021-12-09 14:24:00 72.53 kg [facility]i ty [facility] [place] [facility] [place] BMI 2021-12-09 14:24:00 25.81 kg/m2 Universi ty of [facility] Oxygen saturation in 2021-12-09 14:24:00 97 /min University Arterial blood by [facility] Pulse oximetry Branch Systolic blood 2021-10-12 18:17:00 124 mm[Hg] Univer sity of pressure [facility] Diastolic blood 2021-10-12 18:17:00 90 mm[Hg] Unive rsity of [facility] Heart rate 2021-10-12 18:17:00 112 /min Universi ty of [facility] Body temperature 2021-10-12 18:17:00 37.11 Nabila Univ ersity of [facility] Respiratory rate 2021-10-12 18:17:00 20 /min Univ ersity of [facility] Body height 2021-10-12 18:17:00 167.6 cm [facility]i ty [facility] Body weight 2021-10-12 18:17:00 68.04 kg [facility] [place] [facility] BMI 2021-10-12 18:17:00 24.21 kg/m2 Universi ty of [facility] Procedures Procedure Date / Time Performing Clinician Source Performed CBC WITH DIFF 2022-07-22 08:27:00 Adum, [facility] o f [facility] CBC WITH DIFF 2022-07-22 08:27:00 Adum, Hetal L [facility] SECTION 2022-07-21 18:36:00 Adum, Hetal Fabiano [facility] SECTION 2022-07-21 18:36:00 Adum, Hetal Mario [facility] URINE DRUG (IMMUNOASSAY) 2022-07-21 18:12:00 Adum, Hetal Mario [facility] SCREEN W/O REFLEX URINE DRUG (IMMUNOASSAY) 2022-07-21 18:12:00 Adum, Hetal Mario [facility] SCREEN W/O REFLEX CBC WITH DIFF 2022-07-21 16:52:00 Adum, Hetal Mario [facility] HEPATITIS B SURFACE 2022-07-21 16:52:00 Adum, [facility] 2022-07-21 16:52:00 Adum, Hetal Mario [facility] ADC OR KATALINA ONLY - 2022-07-21 16:52:00 Adum, Hetal Mario [facility] HIV 1/2 AG-AB WITH 2022-07-21 16:52:00 Adum, Hetal Mario [facility] CBC WITH DIFF 2022-07-21 16:52:00 Adum, Hetal Mario [facility] HEPATITIS B SURFACE 2022-07-21 16:52:00 Adum, Hetal [facility] HB ABO GROUPING 2022-07-21 16:52:00 Adum, Hetal Mario [facility] ADC OR [place]AT[place] ONLY - 2022-07-21 16:52:00 Adum, Hetal Mario [facility] HIV 1/2 AG-AB WITH 2022-07-21 16:52:00 Adum, Hetal Mario [facility] ADC ONLY - FERN TEST 2022-07-21 16:06:00 Adum, Hetal Mario [facility] ADC ONLY - FERN TEST 2022-07-21 16:06:00 Adum, Hetal Mario [facility] CONSENT/REFUSAL FOR 2022-07-21 15:31:39 Doctor Unassigned, No Un iversity [facility] DIAGNOSIS AND TREATMENT [facility] Branch CONSENT/REFUSAL FOR 2022-07-21 15:31:39 Doctor Unassigned, No Un i[facility] [place] DIAGNOSIS AND TREATMENT [facility] URINALYSIS 2022-07-17 16:35:00 Adum, Hetal Mario [facility] ADC ONLY - FERN TEST 2022-07-17 16:35:00 Adum, Hetal Mario [facility] URINALYSIS 2022-07-11 06:30:[address] [facility] ADC CLC OR LCC ONLY - 2022-07-11 06:30:00 Austin Arzola [facility] NOTICE OF PRIVACY 2022-07-11 03:43:30 Doctor Unassigned, No [facility] CONSENT/REFUSAL FOR 2022-07-11 03:43:01 Doctor Unassigned, No Un iversity [facility] DIAGNOSIS AND TREATMENT [facility] ASSIGNMENT OF BENEFITS 2022-07-11 03:42:40 Doctor Unassigned, No [facility] POCT URINALYSIS 2022-07-08 19:23:00 Antonette Solano [facility] L&D VISIT 2022-07-06 05:01:00 Doctor Unassigned, No [facility] (NON-DELIVERED) [facility] ASSIGNMENT OF BENEFITS 2022-07-06 04:55:57 Doctor Unassigned, No [facility] POCT URINALYSIS 2022-06-23 19:48:00 Antonette Solano [facility] POCT URINALYSIS 2022-06-09 18:04:00 Antonette Solano [facility] TDAP VACCINE, >11 YRS, 2022-05-26 15:59:59 Tushar Lan [facility] GLUCOSE 1 HOUR POST 2022-05-12 21:16:00 Tushar Lan [facility] CBC WITH DIFF 2022-05-12 21:16:00 Tushar Lan [facility] POCT URINALYSIS 2022-05-12 20:18:00 Antonette Solano [facility] POCT URINALYSIS 2022-04-28 17:24:00 Antonette Solano [facility] SECOND AND THIRD 2022-04-14 15:44:00 Antonette Solano [facility] TRIMESTER ULTRASOUND [facility] POCT URINALYSIS 2022-03-31 16:02:00 Antonette Solano [facility] POCT URINALYSIS 2022-03-10 00:00:00 Antonette Solano [facility] POCT URINALYSIS 2022-02-24 16:30:00 Antonette Solano [facility] POCT URINALYSIS 2022-02-10 00:00:00 Antonette Solano [facility] POCT URINALYSIS 2022-01-27 15:33:00 nAtonette Solano [facility] REPORT OF 2021-12-23 05:01:00 Doctor Unassigned, No [facility] 2021-12-23 00:00:00 Antonette Solano [facility] POCT URINALYSIS W/O 2021-12-23 00:00:00 Antonette Solano [facility] SPECIFIC [facility] US FIRST 2021-12-14 21:24:[address] [facility] TRIMESTER LESS THAN [address] [place] WEEKS WITH TRANSVAGINAL ASSIGNMENT OF BENEFITS 2021-12-14 19:54:43 Doctor Unassigned, No [facility] POCT TEST 2021-12-09 00:00:00 Sara Snyder [facility] POCT TEST 2021-10-12 18:22:00 Tushar Lan [facility] Encounters Start End Encounter Admission Attending Care Care Encounter Source Date/Time Date/Time Type Type Clinicians Facility Department ID 2022-07-11 Outpatient X [facility] ELIAZAR [id number] Univers 03:19:31 ity of [facility] 2020-12-27 Emergency [facility] [id number] Univers 22:10:58 ity of [facility] 2020-12-27 Emergency [facility] [id number] Univers 22:10:57 ity of [facility] 2020-12-27 Outpatient P [facility] [id number] Univers 19:19:43 ity of [facility] 2020-12-27 Outpatient P [facility] [id number] Univers 19:19:36 ity of [facility] 2022-07-21 2022-07-23 Inpatient X AD, [facility] ELIA[facility] [id number] Univers 10:37:00 13:45:00 HETAL ity of [facility] 2022-07-21 2022-07-23 Hospital [facility] [id number] Univers 10:37:00 13:45:00 Encounter Hetal HELLER [id number] ity of [facility] [id number] [id number] [facility] [address] [place] 2022-07-21 2022-07-21 Surgery [facility] [id number] Univers 12:35:00 14:27:00 Hetal HELLER [id number] ity of [facility] [id number] [id number] [facility] [address] 2022-07-21 2022-07-21 Outpatient R AKINSIPE, [facility] [id number] Univers 10:45:00 10:45:00 TUSHAR ity o f [facility] 2022-07-19 2022-07-19 Case [facility] [id number] Univers 00:00:00 00:00:00 Management Hetal HELLER [id number] ity of [facility] [id number] [id number] [place] dical [facility] [address] [facility] 2022-07-17 2022-07-17 [facility] [id number] Univers 10:38:00 12:40:00 HETAL itspenser [facility] 2022-07-17 2022-07-17 Emergency Adum, [facility] [id number] Univers 10:38:00 12:40:00 Hetal HELLER [id number] ity of [id number] [id number] [address] 2022-07-10 2022-07-11 Outpatient X NESS AUSTIN [facility] ELIAZAR [id number] Univers 22:46:00 03:10:00 ity of [facility] 2022-07-10 2022-07-11 Emergency Ness Austin [facility] [id number] Univers 22:46:00 03:10:00 [facility] [id number] i ty of [place] [id number] [facility] [id number] [address] 2022-07-11 2022-07-11 Telephone [facility] [id number] Univers 00:00:00 00:00:00 Tushar C MANAGER [employer]ER[employer]ESSING [id number] ity of [place] [id number] Jamal as MATERNAL [id number] Med ical & CHILD [address] [place] [address] 2022-07-08 2022-07-08 Outpatient R AKINSI, [facility] [id number] Univers 14:15:00 14:41:47 TUSHAR ity o f [facility] 2022-07-08 2022-07-08 Routine [facility], [facility] 1.2.874.255 [id number] Univers 14:15:00 14:41:47 Tushar C MANAGER STERILE PROCESSING 350.1.13.10 ity of Visit [facility] 4.2.7.2.686 Jamal as MATERNAL [id number] [facility] & CHILD [address] [place] [address] 2022-07-06 2022-07-06 Outpatient P AD, [facility] ELIAZAR [id number] Univers 00:06:00 04:42:00 HETAL riosspenser [facility] 2022-07-06 2022-07-06 Emergency Adum, [facility] 1.2.685.727 [id number] Univers 00:06:00 04:42:00 Hetal HELLER 350.1.13.10 ity of [place] 4.2.7.2.686 [place] [facility] [id number] [facility] [address] [place] [address] 2022-07-06 2022-07-06 Orders Doctor MOSHE 1.2.840.114 [id number] Univers 00:00:00 00:00:00 Only Unassigned, TEDDY 350.1.13.10 ity of [facility] 4.2.7.2.686 Jamal as [id number] [address] 2022-07-05 2022-07-05 Orders Doctor MOSHE 1.2.840.114 [id number] Univers 00:00:00 00:00:00 Only Unassigned, TEDDY 350.1.13.10 ity of [place] [facility] 4.2.7.2.686 Jamal as [id number] [address] 2022-06-23 2022-06-23 Outpatient R AKINSIPE, [facility] [id number] Univers 14:45:00 15:08:35 TUSHAR katz [facility] 2022-06-23 2022-06-23 Routine Akinsipe, [facility] 1.2.012.175 [id number] Univers 14:45:00 15:08:35 Tushar Lund MANAGER STERILE PROCESSING 350.1.13.10 ity of Visit [facility] 4.2.7.2.686 Jamal as MATERNAL [id number] [facility] ical & CHILD [address] [place] [address] 2022-06-16 2022-06-16 Outpatient R AKINSIPE, [facility] [id number] Univers 13:00:00 13:00:00 TUSHAR katz f [facility] 2022-06-09 2022-06-09 Outpatient R AKINSIPE, [facility] [id number] Univers 12:45:00 13:24:30 TUSHAR katz f [facility] 2022-06-09 2022-06-09 Routine Akinsipe, [facility] 1.2.729.525 [id number] Univers 12:45:00 13:24:30 Tushar C MANAGER STERILE PROCESSING 350.1.13.10 ity of Visit REGIONAL 4.2.7.2.686 Jamal as MATERNAL [id number] [facility] & [address] 2022-06-02 2022-06-02 Nurse Visit, Neftali Nurse [facility] 1.2 .840.114 [id number] Univers 10:30:00 10:42:00 Visit Akinsipe Tushar C MANAGER STERILE PROCESSING 350.1.13. 10 ity of REGIONAL 4.2.7.2.686 Jamal as MATERNAL [id number] [address] 2022-06-02 2022-06-02 Outpatient R AKINSIPE, [facility] [id number] Univers 10:30:00 10:30:00 TUSHAR ity o [facility] 2022-05-26 2022-05-26 Outpatient R AKINSIPE, [facility] [id number] Univers 10:30:00 11:07:20 TUSHAR ity o f [facility] 2022-05-26 2022-05-26 [facility] 1.2.580.815 [id number] Univers 10:30:00 11:07:20 Tushar C MANAGER STERILE PROCESSING 350.1.13.10 ity of Visit REGIONAL 4.2.7.2.686 Jamal as MATERNAL [id number] [address] 2022-05-19 2022-05-19 [facility] 1.2 .840.114 [id number] Univers 10:30:00 11:03:10 Visit Akinsipe, Tushar C MANAGER STERILE PROCESSING 350.1.13. 10 ity of REGIONAL 4.2.7.2.686 Jamal as MATERNAL [id number] [address] 2022-05-19 2022-05-19 Outpatient R AKINSIPE, [facility] [id number] Univers 10:30:00 10:30:00 TUSHAR ity o f [facility] 2022-05-12 2022-05-12 Outpatient R AKINSIPE, [facility] [id number] Univers 14:45:00 15:46:52 TUSHAR ity o f [facility] 2022-05-12 2022-05-12 Routine Akinsipe, [facility] 1.2.242.973 [id number] Univers 14:45:00 15:46:52 Tushar C MANAGER STERILE PROCESSING 350.1.13.10 ity of Visit REGIONAL 4.2.7.2.686 Jamal as MATERNAL [id number] [facility] ical & CHILD [address] [place] [address] 2022-05-05 2022-05-05 Nurse Visit, Tk-Liamp Nurse [facility] 1.2 .840.[id number] [facility] 10:30:00 10:45:51 Visit Tushar Lan C MANAGER STERILE PROCESSING 350.1.13. 10 ity of REGIONAL 4.2.7.2.686 Jamal as MATERNAL [id number] [facility] CHILD [address] [place] [address] 2022-05-05 2022-05-05 Outpatient R AKINSIPE, [facility] [id number] Univers 10:30:00 10:30:00 TUSHAR ity o [facility] 2022-04-28 2022-04-28 Outpatient R AKINSIPE, [facility] [id number] Univers 11:00:00 11:44:12 TUSHAR ity o [facility] 2022-04-28 2022-04-28 Routine Akinsipe, [facility] 1.2.339.587 [id number] Univers 11:00:00 11:44:12 Tushar C MANAGER STERILE PROCESSING 350.1.13.10 ity of Visit REGIONAL 4.2.7.2.686 Jamal as MATERNAL [id number] [facility] CHILD [address] [place] [address] 2022-04-21 2022-04-21 Nurse Visit, Tk-Rmchp Nurse [facility] 1.2 .840.114 [id number] Univers 10:00:00 10:30:36 Visit Antonette Solano MANAGER STERILE PROCESSING 350.1.13.1 0 ity of REGIONAL 4.2.7.2.686 Jamal as MATERNAL [id number] Med ical & CHILD 107 [facility] 2022-04-21 2022-04-21 Outpatient R ENE [facility] [id number] Univers 10:00:00 10:00:00 ANTONETTE [facility] 2022-04-14 2022-04-14 Outpatient R ASYA [facility] [id number] Univers 09:15:00 11:39:36 SHEREEN [facility] 2022-04-14 2022-04-14 Routine Risk, Tlw-Nxfvg-Kn/High [facility] 1. 2.840.114 [id number] Univers 09:15:00 11:39:36 Shereen Travis MANAGER STERILE PROCESSING 350.1.13.10 ity of Visit REGIONAL 4.2.7.2.686 Jamal as MATERNAL [id number] [facility] CHILD [address] [place] [address] 2022-04-14 2022-04-14 Nurse Visit, Margaretniya Nurse [facility] 1.2 .840.114 [id number] Univers 10:30:00 10:45:00 Visit Tushar Lan MANAGER STERILE PROCESSING 350.1.13. 10 ity of REGIONAL 4.2.7.2.686 Jamal as MATERNAL [id number] [facility] ical & CHILD [address] [place] [address] 2022-04-14 2022-04-14 Pain Medicine Physician Ultrasound, Leonardo [facility] 1.2 .840.114 [id number] Univers 09:30:00 10:39:28 Visit Shereen Travis MANAGER STERILE PROCESSING 350.1.13.10 ity of REGIONAL 4.2.7.2.686 Jamal as MATERNAL [id number] [facility] ical & CHILD 369 [facility] 2022-04-14 2022-04-14 Outpatient R RIKY [facility] [id number] Univers 10:30:00 10:30:00 TUSHAR lauren [facility] 2022-04-14 2022-04-14 Case Ene [facility] 1.2.840.114 [id number] Univers 00:00:00 00:00:00 Management Antonette Millard MANAGER STERILE PROCESSING 350.1.13.10 ity of REGIONAL 4.2.7.2.686 Jamal as MATERNAL [id number] [facility] ical & CHILD [address] [place] [address] 2022-04-07 2022-04-07 Nurse Visit, Neftali Nurse [facility] 1.2 .840.114 [id number] Univers 13:00:00 13:13:39 Visit Tushar Lan MANAGER STERILE PROCESSING 350.1.13. 10 ity of REGIONAL 4.2.7.2.686 Jamal as MATERNAL [id number] [facility] ical & CHILD [address] [place] [address] 2022-04-07 2022-04-07 Outpatient R RIKY [facility] [id number] Univers 13:00:00 13:00:00 TUSHAR rizo o f [facility] 2022-04-07 2022-04-07 Telephone Riky [facility] 1.2.840.114 [id number] Univers 00:00:00 00:00:00 Tushar Lund MANAGER STERILE PROCESSING 350.1.13.10 ity of REGIONAL 4.2.7.2.686 Jamal as MATERNAL [id number] [facility] & CHILD [address] [place] [address] 2022-03-31 2022-03-31 Outpatient R FAUZIA KYSOLE [facility] [id number] Univers 09:45:00 10:58:49 EDWIN rizo of [facility] 2022-03-31 2022-03-31 Routine Risk, Jbz-Aofas-Tl/High [facility] 1. 2.840.114 [id number] Univers 09:45:00 10:58:49 Edwin Cage MANAGER STERILE PROCESSING 350.1.13.10 ity of Visit REGIONAL 4.2.7.2.686 Jamal as MATERNAL [id number] [facility] & CHILD [address] [place] [address] 2022-03-24 2022-03-24 Nurse Visit, Neftali Nurse [facility] 1.2 .840.114 [id number] Univers 10:00:00 10:00:00 Visit Tushar Lan MANAGER STERILE PROCESSING 350.1.13. 10 ity of REGIONAL 4.2.7.2.686 Jamal as MATERNAL [id number] Med ical & CHILD [address] [place] [address] 2022-03-24 2022-03-24 Outpatient R RIKY [facility] [id number] Univers 10:00:00 09:55:01 TUSHAR ity o f [facility] 2022-03-15 2022-03-15 [facility]phone [facility] 1.2.840.114 [id number] Univers 00:00:00 00:00:00 Tushar Lund MANAGER STERILE PROCESSING 350.1.13.10 ity of REGIONAL 4.2.7.2.686 Jamal as MATERNAL [id number] [facility] ical & CHILD [address] [place] [address] 2022-03-10 2022-03-10 Outpatient R FAUZIA [facility] [id number] Univers 11:00:00 11:45:31 EDWIN rizo [facility] 2022-03-10 2022-03-10 Routine Risk, Oho-Qxqqi-Hn/High [facility] 1. 2.840.114 [id number] Univers 11:00:00 11:45:31 Edwin Cage MANAGER STERILE PROCESSING 350.1.13.10 ity of Visit REGIONAL 4.2.7.2.686 Jamal as MATERNAL [id number] [facility] & CHILD [address] [place] [address] 2022-03-10 2022-03-10 Outpatient R [facility] [id number] Univers 10:30:00 10:30:00 ity of [facility] 2022-03-07 2022-03-07 Telephone [facility] 1.2.840.114 [id number] Univers 00:00:00 00:00:00 Tsuhar Lund MANAGER STERILE PROCESSING 350.1.13.10 ity of REGIONAL 4.2.7.2.686 Jamal as MATERNAL [id number] [facility] CH[facility] [address] [place] [address] 2022-03-07 2022-03-07 Yung Cage KYSOLE 1.2.840.114 [id number] Univers 00:00:00 00:00:00 Management Edwin Blas MANAGER STERILE PROCESSING 350.1.13.10 ity of REGIONAL 4.2.7.2.686 Jamal as MATERNAL [id number] [facility] ical & CHILD [address] [place] [address] 2022-02-24 2022-02-24 Outpatient Angelica CAGE [facility] [id number] Univers 10:00:00 11:04:18 [facility] 2022-02-24 2022-02-24 Routine Risk, Pgt-Dtvof-Dl/High [facility] 1. 2.840.114 [id number] Univers 10:00:00 11:04:18 Edwin Cage MANAGER STERILE PROCESSING 350.1.13.10 ity of Visit REGIONAL 4.2.7.2.686 Jamal as MATERNAL [id number] [facility] CHILD [address] [place] [address] 2022-02-10 2022-02-10 Outpatient Angelica CAGE [facility] [id number] Univers 13:15:00 13:59:26 [facility] 2022-02-10 2022-02-10 Routine Risk, Fmp-Gvdxv-Sb/High [facility] 1. 2.840.114 [id number] Univers 13:15:00 13:59:26 Edwin Cage MANAGER STERILE PROCESSING 350.1.13.10 ity of Visit REGIONAL 4.2.7.2.686 Jamal as MATERNAL [id number] [facility] CHILD [address] [place] [address] 2022-01-27 2022-01-27 Outpatient Angelica CAGE [facility] [id number] Univers 09:00:00 10:00:53 [facility] 2022-01-27 2022-01-27 Routine Risk, Rqc-Ofsvg-Rn/High [facility] 1. 2.840.114 [id number] Univers 09:00:00 10:00:53 Edwin Cage MANAGER STERILE PROCESSING 350.1.13.10 ity of Visit REGIONAL 4.2.7.2.686 Jamal as MATERNAL [id number] [facility] [address] [place] [address] 2022-01-10 2022-01-10 Case Ene [facility] 1.2.840.114 [id number] Univers 00:00:00 00:00:00 Management Antonette Millard MANAGER STERILE PROCESSING 350.1.13.10 ity of REGIONAL 4.2.7.2.686 Jamal as MATERNAL [id number] [facility] ical & CHILD 107 [facility] 2022-01-06 2022-01-06 Pain Medicine Physician Ultrasound, Westchelo [facility] 1.2 .840.114 [id number] Univers 15:15:00 15:45:00 Visit David Cooper MANAGER STERILE PROCESSING 350.1.13.10 ity of [facility] 4.2.7.2.686 Jamal as MATERNAL [id number] [facility] ical & CHILD 369 [facility] 2022-01-06 2022-01-06 Outpatient P BALBIR [facility] [id number] Univers 15:15:00 15:15:00 DAVID [facility] 2021-12-30 2021-12-30 Outpatient R SARA SNYDER [facility] [id number] Univers 10:00:00 10:00:00 SARA SNYDER [facility] 2021-12-23 2021-12-23 Outpatient R ENE [facility] [id number] Univers 09:15:00 10:41:00 ANTONETTE [facility] 2021-12-23 2021-12-23 Initial Provider, Neftali [facility] 1 .2.840.114 [id number] Univers 09:15:00 10:41:00 Niki Ralph MANAGER STERILE PROCESSING 350.1.13.1 0 ity of Visit Antonette Solano [facility] 4.2.7.2.686 [place] MATERNAL [id number] [facility] CHILD [address] [place] [address] 2021-12-23 2021-12-23 Orders Doctor MESA 1.2.840.114 [id number] Univers 00:00:00 00:00:00 Only Unassigned, TEDDY 350.1.13.10 ity of [place] [facility] 4.2.7.2.686 Jamal as [id number] [address] 2021-12-17 2021-12-17 Case [facility] 1.2.840.114 [id number] Univers 00:00:00 00:00:00 Management Sara DONALDSON 350.1.13.10 ity of [facility] [place] [id number] [facility] [address] 2021-12-14 2021-12-14 Outpatient R SARA SNYDER [facility] [id number] Univers 14:55:04 23:59:00 [facility] 2021-12-14 2021-12-14 [facility] 1.2.840.114 [id number] Univers 14:55:04 23:59:00 Encounter Sara PINA 350.1.13.10 ity of [place] 4.2.7.2.686 [facility] [id number] [address] 2021-12-14 2021-12-14 Orders Doctor MOSHE 1.2.840.114 [id number] Univers 00:00:00 00:00:00 Only Unassigned, TEDDY 350.1.13.10 ity of [place] [facility] 4.2.7.2.686 Jamal as [id number] [facility] [address] 2021-12-09 2021-12-09 Outpatient R SARA SNYDER [facility] [id number] Univers 09:00:00 09:43:20 [facility] 2021-12-09 2021-12-09 Initial [facility] 1.2.840.114 [id number] Univers 09:00:00 09:43:20 Sara DONALDSON 350.1.13.10 i ty of Visit [place] 4[place]2.7.2.[place] [id number] [facility] [address] [place] 2021-10-12 2021-10-12 Office [facility] 1.2.759.199 [id number] Univers 13:00:00 13:34:47 Visit Tushar Lund MANAGER STERILE PROCESSING 350.1.13.10 ity of [facility] 4.2.7.2.686 Jamal as MATERNAL [id number] [facility] CHILD [address] [place] [address] 2021-10-12 2021-10-12 Outpatient R RIKY, [facility] [id number] Univers 13:00:00 13:34:47 TUSHAR rizo o xin [facility] 2021-10-12 2021-10-12 Outpatient R MALLYSIJOHNATHAN, [facility] [id number] Univers 13:00:00 13:00:00 TUSHAR blancaspenser o [facility] 2021-10-12 2021-10-12 Outpatient R RIKY, [facility] [id number] Univers 13:00:00 13:00:00 TUSHAR itspenser o [facility] 2021-10-12 2021-10-12 Orders Doctor MESA 1.2.840.114 [id number] Univers 00:00:00 00:00:00 Only Unassigned, TEDDY 350.1.13.10 ity of [facility] 4.2.7.2.686 Jamal as [id number] [address] 2021-09-28 2021-09-28 [facility] [id number] Univers 12:45:00 14:31:13 TUSHAR blancaspenser o [facility] 2021-09-28 2021-09-28 Office [facility] 1.2.807.564 [id number] Univers 12:45:00 14:31:13 Visit Tushar Lund MANAGER STERILE PROCESSING 350.1.13.10 ity [facility] 4.2.7.2.686 Jamal as MATERNAL [id number] [facility] ical & CHILD [address] [place] [address] 2021-08-05 2021-08-05 Outpatient R JAM SAUNDERS [facility] [id number] Univers 16:15:00 16:15:00 ity [facility] 2021-06-18 2021-06-18 Outpatient R THERON [facility] [id number] Univers 11:00:00 11:00:00 CLINTON rizo [facility] 2021-06-15 2021-06-15 Orders Doctor MESA 1.2.840.114 [id number] Univers 00:00:00 00:00:00 Only Unassigned, TEDDY 350.1.13.10 ity of [place] [facility] 4.2.7.2.686 Jamal as [id number] [address] 2021-03-09 2021-03-09 Outpatient R RIKY [facility] [id number] Univers 14:00:00 14:00:00 TUSHAR riosy o f [facility] 2021-03-02 2021-03-02 [facility] 1.2.840.114 [id number] Univers 00:00:00 00:00:00 Tushar Lund MANAGER STERILE PROCESSING 350.1.13.10 ity of [facility] 4.2.7.2.686 Jamal as MATERNAL [id number] [facility] ical & CHILD [address] [place] [address] 2021-02-12 2021-02-12 [facility] 1.2.104.617 [id number] Univers 00:00:00 00:00:00 Ernesto Rosario MANAGER STERILE PROCESSING 350.1.13.10 it y of [facility] 4.2.7.2.686 Jamal as MATERNAL [id number] [facility] ical & CHILD [address] [place] [address] 2021-02-11 2021-02-11 [facility]o [facility] 1.2.665.922 [id number] Univers 00:00:00 00:00:00 Tushar Lund MANAGER STERILE PROCESSING 350.1.13.10 ity of [facility] 4.2.7.2.686 Jamal as MATERNAL [id number] [facility] CHILD [address] [place] [address] 2021-01-27 2021-01-27 [facility]cad[facility] 1.2.479.208 [id number] Univers 00:00:00 00:00:00 Ernesto Rosario MANAGER STERILE PROCESSING 350.1.13.10 it y of [facility] 4.2.7.2.686 Jamal as MATERNAL [id number] [facility] CHILD [address] [place] [address] 2021-01-18 2021-01-18 Outpatient R MADONNA KYSOLE [facility] [id number] Univers 16:00:00 16:18:34 ERNESTO rizo of [facility] 2021-01-18 2021-01-18 Office [facility] 1.2.078.230 [id number] Univers 15:59:18 16:18:34 Visit Ernesto Abraham MANAGER STERILE PROCESSING 350.1.13.10 it y of [facility] 4.2.7.2.686 Jamal as MATERNAL [id number] [address] 2021-01-18 2021-01-18 Outpatient [facility] [id number] Univers 16:00:00 16:00:00 ERNESTO darrius [facility] 2021-01-15 2021-01-15 Outpatient [facility] [id number] Univers 13:15:00 13:15:00 ERNESTO spenser [facility] 2020-12-11 2020-12-11 Telephone [facility] 1.2.840.114 [id number] Univers 00:00:00 00:00:00 Tushar Lund MANAGER STERILE PROCESSING 350.1.13.10 ity of [facility] 4.2.7.2.686 Jamal as MATERNAL [id number] [address] 2020-10-20 2020-10-20 [facility] 1.2.840.114 [id number] Univers 13:30:06 14:12:47 Visit Niki Dominguez MANAGER STERILE PROCESSING 350.1.13.10 ity of [facility] 4.2.7.2.686 Jamal as MATERNAL [id number] [address] 2020-10-20 2020-10-20 Outpatient [facility] [id number] Univers 13:30:00 13:30:00 NIKI rizo o [facility] 2020-10-14 2020-10-14 [facility] [id number] Univers 15:00:00 15:00:00 TUSHAR lauren [facility] 2020-10-12 2020-10-12 Office [facility] 1.2.946.474 [id number] Univers 14:17:44 15:03:31 Visit Tushar Lund MANAGER STERILE PROCESSING 350.1.13.10 ity of [facility] 4.2.7.2.686 Jamal as MATERNAL [id number] [facility] [address] [place] [address] 2020-10-12 2020-10-12 Outpatient R RIKY [facility] [id number] Univers 14:30:00 14:30:00 TUSHAR darrius o xin [facility] 2020-09-28 2020-09-28 Outpatient R RIKY [facility] [id number] Univers 08:30:00 08:30:00 TUSHAR katz xin [facility] 2020-09-28 2020-09-28 Telephone [facility] 1.2.840.114 [id number] Univers 00:00:00 00:00:00 Ernesto Rosario MANAGER STERILE PROCESSING 350.1.13.10 it y of [facility] 4.2.7.2.686 Jamal as MATERNAL [id number] [facility] & [address] 2020-09-25 2020-09-25 Telephone [facility] 1.2.840.114 [id number] Univers 00:00:00 00:00:00 Tushar Lund MANAGER STERILE PROCESSING 350.1.13.10 ity of [facility] 4.2.7.2.686 Jamal as MATERNAL [id number] [facility] & [address] 2020-09-24 2020-09-24 Office [facility] 1.2.226.181 [id number] Univers 14:14:05 14:29:05 Visit Tushar Lund MANAGER STERILE PROCESSING 350.1.13.10 ity of [facility] 4.2.7.2.686 Jamal as MATERNAL [id number] [address] 2020-09-24 2020-09-24 Outpatient R RIKY [facility] [id number] Univers 14:15:00 14:15:00 TUSHAR katz xin [facility] 2020-09-08 2020-09-08 Outpatient R MADONNA [facility] [id number] Univers 16:00:00 16:00:00 ERNESTO rizo [facility] 2020-08-18 2020-08-18 Routine [facility] 1.2.936.942 [id number] Univers 13:04:51 13:45:53 Tushar Lund MANAGER [employer]ESSING 350.1.13.10 ity of Visit REGIONAL 4.2.7.2.686 Jamal as MATERNAL [id number] [facility] [address] 2020-08-18 2020-08-18 Outpatient R RIKY [facility] [id number] Univers 13:15:00 13:15:00 TUSHAR katz xin [facility] 2020-08-06 2020-08-06 Outpatient R MADONNA [facility] [id number] Univers 11:00:00 11:00:00 ERNESTO rizo [facility] 2020-08-06 2020-08-06 Nurse Visit, [facility] 1.2 .840.114 [id number] Univers 08:21:04 09:08:19 Visit Tushar Lan MANAGER [employer]ESSING 350.1.13. 10 ity of REGIONAL 4.2.7.2.686 Jamal as MATERNAL [id number] [address] 2020-08-06 2020-08-06 Outpatient R RIKY [facility] [id number] Univers 09:00:00 09:00:00 TUSHAR blancaspenser lauren [facility] 2020-08-04 2020-08-04 Telephone [facility] 1.2.840.114 [id number] Univers 00:00:00 00:00:00 Ernesto Rosario MANAGER [employer]ER[employer] PROCESSING 350.1.13.10 it y of REGIONAL 4.2.7.2.686 Jamal as MATERNAL [id number] [address] 2020-08-01 2020-08-01 1.2.840.1 1.2.840.114 [id number] Univers 00:00:00 00:00:00 Encounter 13908.1.1 350.1.13.10 ity of 3.104.2.7 [place].2.[id number] [facility] 2020-07-26 2020-07-28 [facility] Ros[facility] Breen [facility] 1.2.840.11 [id number] Univers 14:30:00 17:45:00 Encounter Austin Arzolaton 350.1.13.10 ity of [place] 4.2.7.2.686 [facility] [id number] [address] 2020-07-27 2020-07-27 [facility]est[facility] 1.2.840.114 [id number] Univers 10:49:00 16:19:00 Event Dylan Heller 350.1.13.10 ity of [place] 4.2.7.2.686 [facility] [id number] [address] 2020-07-26 2020-07-26 Anesthesia [facility] 1.2.840.114 [id number] Univers 19:50:09 19:50:09 Event Angelica Pina 350.1.13.10 i ty of [place] 4.2.7.2.686 [facility] [id number] [address] 2020-07-21 2020-07-21 Routine [facility] 1.2.787.206 [id number] Univers 12:46:13 13:17:55 Ernesto N MANAGER [employer]ER[employer] PROCESSING 350.1.13.10 i ty of Visit [facility] 4.2.7.2.686 Jamal as MATERNAL [id number] [facility] ical & CHILD [address] [place] [address] 2020-07-21 2020-07-21 [facility] [id number] Univers 12:45:00 12:45:00 ERNESTO rizo of [facility] 2020-07-12 2020-07-12 Hospital [facility] 1.2.840.114 [id number] Univers 02:00:00 03:20:00 Encounter Hetal Mario Pina 350.1.13.10 ity of [place] 4.2.7.2.686 [facility] [id number] [address] 2020-07-07 2020-07-07 [facility] 1.2.140.971 [id number] Univers 10:39:36 11:15:55 Ernesto N MANAGER STERILE PROCESSING 350.1.13.10 i ty of Visit [facility] 4.2.7.2.686 Jamal as MATERNAL [id number] [facility] & CHILD [address] [place] [address] 2020-07-07 2020-07-07 Outpatient R MADONNA [facility] [id number] Univers 10:45:00 10:45:00 ERNESTO rizo [facility] 2020-06-26 2020-06-26 Telephone [facility] 1.2.840.114 [id number] Univers 00:00:00 00:00:00 Tushar Lund MANAGER STERILE PROCESSING 350.1.13.10 ity of [facility] 4.2.7.2.686 Jamal as MATERNAL [id number] [address] 2020-06-23 2020-06-23 Routine [facility] 1.2.836.619 [id number] Univers 14:10:30 14:38:56 Ernesto Rosario MANAGER STERILE PROCESSING 350.1.13.10 i ty of Visit [facility] 4.2.7.2.686 Jamal as MATERNAL [id number] [facility] CHILD [address] [place] [address] 2020-06-23 2020-06-23 Outpatient Angelica PEACOCK [facility] [id number] Univers 14:15:00 14:15:00 ERNESTO spenser [facility] 2020-06-11 2020-06-11 Orders Doctor MOSHE 1.2.840.114 [id number] Univers 00:00:00 00:00:00 Only Unassigned, TEDDY 350.1.13.10 ity of [place] [facility] 4.2.7.2.686 Jamal as [id number] [address] 2020-06-09 2020-06-09 Routine Niki Ralph [facility] 1.2.840 .114 [id number] Univers 14:16:51 14:55:17 Ernesto Peacock MANAGER STERILE PROCESSING 350.1.13.10 ity of Visit [facility] 4.2.7.2.686 Jamal as MATERNAL [id number] [facility] CHILD [address] [place] [address] 2020-06-09 2020-06-09 Outpatient Angelica PEACOCK [facility] [id number] Univers 14:15:00 14:15:00 ERNESTO rizo [facility] 2020-06-02 2020-06-02 Orders Doctor MOSHE 1.2.840.114 [id number] Univers 00:00:00 00:00:00 Only Unassigned, TEDDY 350.1.13.10 ity of [place] [facility] 4.2.7.2.686 Jamal as [id number] [address] 2020-06-01 2020-06-01 Refill Riky [facility] 1.2.434.344 [id number] Univers 00:00:00 00:00:00 Tushar Lund MANAGER STERILE PROCESSING 350.1.13.10 ity of [facility] 4.2.7.2.686 Jamal as MATERNAL [id number] [facility] ical & CHILD [address] [place] [address] 2020-05-21 2020-05-21 Pain Medicine Physician Lab, [facility] 1.2.840. 114 [id number] Univers 12:58:26 13:13:26 Visit Tushar Lan MANAGER STERILE PROCESSING 350.1.13. 10 ity of [facility] 4.2.7.2.686 Jamal as MATERNAL [id number] [address] 2020-05-21 2020-05-21 Outpatient R RIKY [facility] [id number] Univers 13:00:00 13:00:00 TUSHAR rizo o f [facility] 2020-05-19 2020-05-19 Routine Madonna [facility] 1.2.660.111 [id number] Univers 12:45:26 13:11:32 Ernesto Rosario MANAGER STERILE PROCESSING 350.1.13.10 i ty of Visit [facility] 4.2.7.2.686 Jamal as MATERNAL [id number] [facility] & [address] 2020-05-19 2020-05-19 Outpatient R MADONNA [facility] [id number] Univers 12:45:00 12:45:00 ERNESTO rizo [facility] 2020-05-19 2020-05-19 Patient Tim [facility] 1.2.840.114 [id number] Univers 00:00:00 00:00:00 Outreach [facility] 350.1.13.10 i ty of [facility] 4.2.7.2.686 Inessa SALAZAR [id number] [address] 2020-04-23 2020-04-23 Routine [facility] 1.2.474.026 [id number] Univers 15:54:18 16:11:16 Ernesto Rosario MANAGER STERILE PROCESSING 350.1.13.10 i ty of Visit [facility] 4.2.7.2.686 Jamal as MATERNAL [id number] [facility] & CHILD [address] [place] [address] 2020-04-23 2020-04-23 [facility] [id number] Univers 16:00:00 16:00:00 ERNESTO rizo [facility] 2020-04-14 2020-04-14 [facility] [id number] Univers 12:45:00 12:45:00 ERNESTO rizo [facility] 2020-04-09 2020-04-09 Pain Medicine [facility] 1.2 .840.114 [id number] Univers 13:55:54 14:54:41 Visit Radha Charlton MANAGER STERILE PROCESSING 350.1.13.10 ity of [facility] 4.2.7.2.686 Jamal as MATERNAL [id number] [facility] 2020-04-09 2020-04-09 Outpatient P [facility] [id number] Univers 14:00:00 14:00:00 ity [facility] 2020-04-07 2020-04-07 Telephone [facility] 1.2.840.114 [id number] Univers 00:00:00 00:00:00 Ernesto Rosario MANAGER STERILE PROCESSING 350.1.13.10 it y of [facility] 4.2.7.2.686 Jamal as MATERNAL [id number] [facility] & CHILD [address] [place] [address] 2020-03-26 2020-03-26 Orders Doctor MESA 1.2.840.114 [id number] Univers 00:00:00 00:00:00 Only Unassigned, TEDDY 350.1.13.10 ity of [place] [facility] 4.2.7.2.686 Jamal as [id number] [address] 2020-03-17 2020-03-17 Routine [facility] 1.2.604.145 [id number] Univers 12:49:30 13:34:04 Ernesto N MANAGER STERILE PROCESSING 350.1.13.10 i ty of Visit [facility] 4.7.2.686 Jamal as MATERNAL [id number] [facility] & CHILD [address] [place] [address] 2020-03-17 2020-03-17 [facility] [id number] Univers 13:00:00 13:00:00 ERNESTO rizo [facility] 2020-02-25 2020-02-25 Telephone [facility] 1.2.840.114 [id number] Univers 00:00:00 00:00:00 Ernesto Rosario MANAGER STERILE PROCESSING 350.1.13.10 it y of [place] [address].7.2.686 Jamal as MATERNAL [id number] [address] 2020-02-18 2020-02-18 [facility] [id number] Univers 14:45:00 14:45:00 ERNESTO rizo [facility] 2020-02-18 2020-02-18 Routine [facility] 1.2.382.828 [id number] Univers 14:09:04 14:39:35 Ernesto Rosario MANAGER STERILE PROCESSING 350.1.13.10 i ty of Visit [place] [address]..2.686 Jamal as MATERNAL [id number] [address] 2020-02-03 2020-02-03 Telephone [facility] 1.2.840.114 [id number] Univers 00:00:00 00:00:00 Tushar Ashely MANAGER STERILE PROCESSING 350.1.13.10 ity of [place] [address].2.686 Jamal as MATERNAL [id number] [facility] & CHILD [address] [place] [address] 2020-02-03 2020-02-03 Refill Doctor [facility] 1.2.840.114 [id number] Univers 00:00:00 00:00:00 Unassigned, MANAGER STERILE PROCESSING 350.1.13.10 ity of [place] [facility] 4.2.7.2.686 Jamal as MATERNAL [id number] Med ical & CHILD 107 [facility] 2020-01-21 2020-01-21 Routine Madonna [facility] 1.2.167.338 [id number] Univers 15:20:02 16:02:58 Ernesto Rosario MANAGER STERILE PROCESSING 350.1.13.10 i ty of Visit [facility] 4.2.7.2.686 Jamal as MATERNAL [id number] Med ical & CHILD 107 [facility] 2020-01-21 2020-01-21 [facility] [id number] Univers 15:30:00 15:30:00 ERNESTO rizo [facility] 2020-01-18 2020-01-18 Refill Doctor [facility] 1.2.840.114 [id number] Univers 00:00:00 00:00:00 Unassigned, MANAGER STERILE PROCESSING 350.1.13.10 ity of [place] [facility] 4.2.7.2.686 Jamal as MATERNAL [id number] Med ical & CHILD [address] [place] [address] 2020-01-09 2020-01-09 Pain Medicine Physician Ultrasound, [facility] 1.2 .840.114 [id number] Univers 14:52:31 15:17:04 Visit Shereen Travis MANAGER STERILE PROCESSING 350.1.13.10 ity of [facility] 4.2.7.2.686 Jamal as MATERNAL [id number] Med ical & CHILD 369 [facility] 2020-01-09 2020-01-09 Outpatient P [facility] [id number] Univers 14:45:00 14:45:00 ity of [facility] 2020-01-09 2020-01-09 Abstract Madonna [facility] 1.2.840.114 [id number] Univers 00:00:00 00:00:00 Ernesto Rosario MANAGER STERILE PROCESSING 350.1.13.10 it y of [facility] 4.2.7.2.686 Jamal as MATERNAL [id number] Med ical & CHILD 107 [facility] 2019-12-27 2019-12-27 Telephone Riky [facility] 1.2.840.114 [id number] Univers 00:00:00 00:00:00 Tushar C MANAGER STERILE PROCESSING 350.1.13.10 ity of [facility] 4.2.7.2.686 Jamal as MATERNAL [id number] [facility] ical & CHILD [address] [place] [address] 2019-12-26 2019-12-26 Initial Madonna [facility] 1.2.703.372 [id number] Univers 13:39:00 15:06:17 Ernesot Rosario MANAGER STERILE PROCESSING 350.1.13.10 i ty of Visit [facility] 4.2.7.2.686 Jamal as MATERNAL [id number] Med ical & CHILD [address] [place] [address] 2019-12-26 2019-12-26 Outpatient R MADONNA [facility] [id number] Univers 13:45:00 13:45:00 ERNESTO rizo [facility] 2019-12-26 2019-12-26 Orders Doctor MOSHE 1.2.840.114 [id number] Univers 00:00:00 00:00:00 Only Unassigned, TEDDY 350.1.13.10 ity of [place] [facility] 4.2.7.2.686 Jamal as [id number] [address] 2019-12-09 2019-12-09 Outpatient R RIKY [facility] [id number] Univers 13:15:00 13:15:00 TUSHAR katz f [facility] 2019-10-28 2019-10-28 Telephone [facility] 1.2.840.114 [id number] 00:00:00 00:00:00 Tushar C MANAGER STERILE PROCESSING 350.1.13.10 REGIONAL 4.2.7.2.686 MATERNAL [id number] & CHILD [address] [place] [address] 2019-10-28 2019-10-28 Telephone [facility] 1.2.840.114 [id number] Univers 00:00:00 00:00:00 Tushar C MANAGER STERILE PROCESSING 350.1.13.10 ity of [facility] 4.2.7.2.686 Jamal as MATERNAL [id number] [facility] ical & CHILD [address] [place] [address] 2019-10-09 2019-10-09 [facility] 1.2.736.429 [id number] Univers 08:16:20 08:48:41 Visit Tushar C MANAGER STERILE PROCESSING 350.1.13.10 ity of [facility] 4.2.7.2.686 Jamal as MATERNAL [id number] [facility] & CHILD [address] [place] [address] 2019-10-09 2019-10-09 Office [facility] 1.2.947.956 [id number] 08:16:20 08:48:41 Visit Tushar C MANAGER STERILE PROCESSING 350.1.13.10 REGIONAL 4.2.7.2.686 MATERNAL [id number] & CHILD [address] [place] [address] 2019-10-09 2019-10-09 Outpatient R AKINSIPE, [facility] [id number] Univers 08:15:00 08:15:00 TUSHAR ity o f [facility] 2019-10-07 2019-10-07 Outpatient R AKINSIPE, [facility] [id number] Univers 10:30:00 10:30:00 TUSHAR rizo o f [facility] 2019-09-27 2019-09-27 Telephone [facility] 1.2.840.114 [id number] Univers 00:00:00 00:00:00 Tushar C MANAGER STERILE PROCESSING 350.1.13.10 ity of [facility] 4.2.7.2.686 Jamal as MATERNAL [id number] [facility] & CHILD [address] [place] [address] 2019-09-25 2019-09-25 Refill [facility] 1.2.283.965 [id number] Univers 00:00:00 00:00:00 Tushar C MANAGER STERILE PROCESSING 350.1.13.10 ity of [facility] 4.2.7.2.686 Jamal as MATERNAL [id number] [facility] & CHILD [address] [place] [address] 2019-08-19 2019-08-19 Telephone [facility] 1.2.840.114 [id number] Univers 00:00:00 00:00:00 Tushar C MANAGER STERILE PROCESSING 350.1.13.10 ity of [facility] 4.2.7.2.686 Jamal as MATERNAL [id number] [facility] & CHILD [address] [place] [address] 2019-08-16 2019-08-16 Yung [facility] 1.2.995.712 [id number] Univers 00:00:00 00:00:00 Management Selam MANAGER STERILE PROCESSING 350.1.13.10 ity of [facility] 4.2.7.2.686 Jamal as MATERNAL [id number] Med ical & CHILD [address] [facility] 2019-08-15 2019-08-15 Office Provider, WestRmchniya Mckeon [facility] 1 .2.840.114 [id number] Univers 10:43:37 11:14:30 Visit Selam Alves MANAGER STERILE PROCESSING 350.1.13.10 ity of [facility] 4.2.7.2.686 Jamal as MATERNAL [id number] [facility] ical & CHILD 107 [facility] 2019-08-15 2019-08-15 Outpatient R LILLIAM [facility] [id number] Univers 10:45:00 10:45:00 SELAM lauren [facility] 2019-07-23 2019-07-23 Telephone [facility] 1.2.840.114 [id number] Univers 00:00:00 00:00:00 Tushar Lund MANAGER STERILE PROCESSING 350.1.13.10 ity of [facility] 42.7.2.686 Jamal as MATERNAL [id number] [facility] & CHILD [address] [place] [address] 2019-07-19 2019-07-19 Orders Doctor MOSHE 1.2.840.114 [id number] Univers 00:00:00 00:00:00 Only Unassigned, TEDDY 350.1.13.10 ity of [place] [facility] 4.2.7.2.686 Jamal as [id number] [address] 2019-07-08 2019-07-08 Telemedici [facility] 1.2.840.114 [id number] Univers 07:39:54 09:35:12 ne Visit Tushar Lund MANAGER STERILE PROCESSING 350.1.13.10 ity of [facility] 4.2.7.2.686 Jamal as MATERNAL [id number] [facility] ical & CHILD [address] [place] [address] 2019-07-08 2019-07-08 Outpatient R RIKY [facility] [id number] Univers 09:30:00 09:30:00 TUSHAR ity o f [facility] 2019-07-05 2019-07-05 Telephone [facility] 1.2.840.114 [id number] Univers 00:00:00 00:00:00 Tushar C MANAGER STERILE PROCESSING 350.1.13.10 ity of [facility] 4.2.7.2.686 Jamal as MATERNAL [id number] [facility] & CHILD [address] [place] [address] 2019-04-29 2019-04-29 Telephone [facility] 1.2.840.114 [id number] Univers 00:00:00 00:00:00 Tushar Lund MANAGER STERILE PROCESSING 350.1.13.10 ity of [facility] 4.2.7.2.686 Jamal as MATERNAL [id number] [facility] & CHILD [address] [place] [address] 2019-04-01 2019-04-01 Telephone [facility] 1.2.840.114 [id number] Univers 00:00:00 00:00:00 Tushar Ashely MANAGER STERILE PROCESSING 350.1.13.10 ity of [facility] 4.2.7.2.686 Jamal as MATERNAL [id number] [facility] & [address] 2019 2019 Office Mallyjohnathan [facility] 1.2.288.889 [id number] Univers 10:39:31 11:16:49 Visit Tushar Lund MANAGER STERILE PROCESSING 350.1.13.10 ity of [facility] 4.2.7.2.686 Jamal as MATERNAL [id number] [facility] & CHILD [address] [place] [address] 2019 2019 Orders Doctor [facility] 1.2.840.114 [id number] Univers 00:00:00 00:00:00 Only Unassigned, TEDDY 350.1.13.10 ity of [place] [facility] 4.2.7.2.686 Jamal as [id number] [address] 2018-12-20 2018-12-20 Office Riky, 1.2.840.0 [id number] Univers 09:37:41 10:39:11 Visit Tushar Lund 92378.1.1 i ty of 3.104.2.7 [place] .3.142081 Medica l .8 Branch 2018-12-20 2018-12-20 Telephone [place], 1.2.840.1 [id number] Univers 00:00:00 00:00:00 Tushar Lund 72816.1.1 i ty of 3.104.2.7 [facility].912427 Medica l .8 Branch 2018-12-20 2018-12-20 Orders Doctor 1.2.840.2 [id number] Univers 00:00:00 00:00:00 Only Unassigned, 53313.1.1 ity of [place] 3.104.2.7 [place] [id number] Medica l .8 [place] Results Test Description Test Time Test Comments Results Result Comments Source CBC with Differential 2022-07-22 11:22:51 Test Item Value Reference Range Interpretation Comme nts WBC (test code = 6690-2) 21.75 See_Comment H [A utomated message] The system which ge nerated this result transmit brendan reference range: 4.30 - 1 1.10 10*3/?L. The reference r yancy was not used to interpr et this result as normal/abnor mal. RBC (test code = 789-8) 3.93 See_Comment [Au tomated message] The system which Securly nerated this result transmit brendan reference range: 3.93 - 5 .25 10*6/?L. The reference r yancy was not used to interpr et this result as normal/abnor mal. HGB (test code = 718-7) 8.9 g/dL 11.6-15.0 L HCT (test code = 4544-3) 28.3 % 35.7-45.2 L MCV (test code = 787-2) 72.0 fL 80.6-95.5 L MCH (test code = 785-6) 22.6 pg 25.9-32.8 L MCHC (test code = 786-4) 31.4 g/dL 31.6-35.1 L RDW-SD (test code = 94715-2) 37.8 fL 39.0-49.9 L RDW-CV (test code = 788-0) 14.6 % 12.0-15.5 PLT (test code = 777-3) 216 See_Comment [Au tomated message] The system which ge nerated this result transmit brendan reference range: 166 - 35 8 10*3/?L. The reference range was not used to interpret th is result as normal/abnormal . MPV (test code = 69076-5) 10.8 fL 9.5-12.9 NRBC/100 WBC (test code = 0.0 See_Comment [ Automated message] The 9277957252) system which ge nerated this result transmit brendan reference range: 0.0 - 10 .0 /100 WBCs. The reference r yancy was not used to interpr et this result as normal/abnor mal. NRBC x10^3 (test code = See_Comment [Au tomated message] The 5156329644) system which ge nerated this result transmit brendan reference range: 10*3/?L. The reference range was not u sed to interpret this result as normal/abnormal . SEG % (test code = 01674-7) 83 % 33-76 H BAND % (test code = 27248-2) 9 % 0-1 H LYMPH % (test code = 8 % 14-54 L 88008-1) ANC (test code = 753-4) 20.01 10*3/uL 1.88-7.09 H Lab Interpretation (test Abnormal code = 82644-3) [facility] with [id number] 11:22:51 Test Item Value Reference Range Interpretation Comments WBC (test code = 21.75 See_Comment H [Automated 6690-2) message] The system which generated this result transmit brendan reference range : 4.30 - 11.10 10*3/?L. The reference range was not used to interpret this result as normal/abnormal . RBC (test code = 3.93 See_Comment [Automated 559-8) message] The system which generated this result transmit brendan reference range : 3.93 - 5.25 10*6/?L. The reference range was not used to interpret this result as normal/abnormal . HGB (test code = 8.9 g/dL 11.6-15.0 L 718-7) HCT (test code = 28.3 % 35.7-45.2 L 4544-3) MCV (test code = 72.0 fL 80.6-95.5 L 787-2) MCH (test code = 22.6 pg 25.9-32.8 L 785-6) MCHC (test code = 31.4 g/dL 31.6-35.1 L 786-4) RDW-SD (test code = 37.8 fL 39.0-49.9 L 51863-7) RDW-CV (test code = 14.6 % 12.0-15.5 788-0) PLT (test code = 216 See_Comment [Automated 777-3) message] The system which generated this result transmit brendan reference range : 166 - 358 10*3/ ?L. The reference range was not u sed to interpret th is result as normal/abnormal . MPV (test code = 10.8 fL 9.5-12.9 05186-0) NRBC/100 WBC (test 0.0 See_Comment [Automat ed code = 3031510378) message] The system which generated this result transmit brendan reference range : 0.0 - 10.0 /100 WBCs. The reference range was not used to interpret this result as normal/abnormal . NRBC x10^3 (test code See_Comment [Auto mated = [id number]) message] The system which generated this result transmit brendan reference range : 10*3/?L. The reference range was not used to interpret this result as normal/abnormal . SEG % (test code = 83 % 33-76 H 53080-7) BAND % (test code = 9 % 0-1 H 26111-6) LYMPH % (test code = 8 % 14-54 L 20661-4) ANC (test code = 20.01 10*3/uL 1.88-7.09 H 753-4) Lab Interpretation Abnormal (test code = 87982-9) [facility] [id number] 19:23:00 Test Item Value Reference Range Interpretation Comments POCT U SP GRAV (test code = 3255) . 1.005-1.025 POCT PH U (test code = 3254) . 5-8 POCT U LEUK EST (test code = 3263) . Negative - Negative POCT U NIT (test code = 3262) . Negative - Negative POCT U PROT (test code = 3259) trace Negative - Negative POCT U GLU (test code = 3256) neg Negative - Negative POCT U KETONE (test code = 3258) . Negative - Negative POCT U UROBILI (test code = 3260) . 0.2-1 POCT U BILI (test code = 3261) . Negative - Negative POCT U BLD (test code = 3257) . Negative - Negative POCT U COLOR (test code = 3266) POCT U APPEAR (test code = 3267) . [facility] URINALYSIS W SPECIFIC [id number] 19:48:00 Test Item Value Reference Range Interpretation Comments POCT U SP GRAV (test code = 3255) . 1.005-1.025 POCT PH U (test code = 3254) . 5-8 POCT U LEUK EST (test code = 3263) . Negative - Negative POCT U NIT (test code = 3262) . Negative - Negative POCT U PROT (test code = 3259) trace Negative - Negative POCT U GLU (test code = 3256) neg Negative - Negative POCT U KETONE (test code = 3258) . Negative - Negative POCT U UROBILI (test code = 3260) . 0.2-1 POCT U BILI (test code = 3261) . Negative - Negative POCT U BLD (test code = 3257) . Negative - Negative POCT U COLOR (test code = 3266) . POCT U APPEAR (test code = 3267) . [facility] URINALYSIS W SPECIFIC [id number] 18:04:00 Test Item Value Reference Range Interpretation Comments POCT U SP GRAV (test code = 3255) . 1.005-1.025 POCT PH U (test code = 3254) . 5-8 POCT U LEUK EST (test code = 3263) . Negative - Negative POCT U NIT (test code = 3262) . Negative - Negative POCT U PROT (test code = 3259) trace Negative - Negative POCT U GLU (test code = 3256) neg Negative - Negative POCT U KETONE (test code = 3258) . Negative - Negative POCT U UROBILI (test code = 3260) . 0.2-1 POCT U BILI (test code = 3261) . Negative - Negative POCT U BLD (test code = 3257) . Negative - Negative POCT U COLOR (test code = 3266) . POCT U APPEAR (test code = 3267) . [facility] with [id number] 04:55:42 Test Item Value Reference Range Interpretation Comments WBC (test code = 12.52 See_Comment H [Automated 6690-2) message] The sy stem which generated this result transmitted reference range : 4.30 - 11.10 10*3/?L. The reference range was not used to interpret this result as normal/abnormal . RBC (test code = 4.28 See_Comment [Automated 789-8) message] The sy stem which generated this result transmitted reference range : 3.93 - 5.25 10*6/?L. The reference range was not used to interpret this result as normal/abnormal . HGB (test code = 11.2 g/dL 11.6-15.0 L 718-7) HCT (test code = 34.6 % 35.7-45.2 L 4544-3) MCV (test code = 80.8 fL 80.6-95.5 787-2) MCH (test code = 26.2 pg 25.9-32.8 785-6) MCHC (test code = 32.4 g/dL 31.6-35.1 786-4) RDW-SD (test code = 39.8 fL 39.0-49.9 41943-2) RDW-CV (test code = 13.8 % 12.0-15.5 788-0) PLT (test code = 287 See_Comment [Automated 777-3) message] The sy stem which generated this result transmitted reference range : 166 - 358 10*3/ ?L. The reference r yancy was not used to interpret this result as normal/abnormal . MPV (test code = 11.0 fL 9.5-12.9 52015-3) NRBC/100 WBC (test 0.0 See_Comment [Automat ed code = [id number]) message] The system which generated this result transmitted reference range : 0.0 - 10.0 /100 WBCs. The refer ence range was not u sed to interpret th is result as normal/abnormal . NRBC x10^3 (test code See_Comment [Auto mated = [id number]) message] The s ystem which generated this result transmitted reference range : 10*3/?L. The reference range was not used to interpret this result as normal/abnormal . GRAN MAT (NEUT) % 68.4 % (test code = 770-8) IMM GRAN % (test code 1.10 % = [id number]) LYMPH % (test code = 19.6 % 736-9) MONO % (test code = 6.5 % 5905-5) EOS % (test code = 3.8 % 713-8) BASO % (test code = 0.6 % 706-2) GRAN MAT x10^3(ANC) 8.56 10*3/uL 1.88-7.09 H (test code = [id number]) IMM GRAN x10^3 (test 0.14 10*3/uL 0.00-0.06 H code = [id number]) LYMPH x10^3 (test code 2.46 10*3/uL 1.32-3.29 = 731-0) MONO x10^3 (test code 0.82 10*3/uL 0.33-0.92 = 742-7) EOS x10^3 (test code = 0.47 10*3/uL 0.03-0.39 H 711-2) BASO x10^3 (test code 0.07 10*3/uL 0.01-0.07 = 704-7) Lab Interpretation Abnormal (test code = 62661-3) [facility] [place] [facility] [place] [facility] [id number] 04:31:20 Test Item Value Reference Range Interpretation Comments GLUC 1 HR (test code = [id number]) 72 mg/dL 120-170 L Lab Interpretation (test code = Abnormal 87600-9) [facility] [id number] 20:18:00 Test Item Value Reference Range Interpretation Comments POCT U SP GRAV (test code = 3255) . 1.005-1.025 POCT PH U (test code = 3254) . 5-8 POCT U LEUK EST (test code = 3263) . Negative - Negative POCT U NIT (test code = 3262) . Negative - Negative POCT U PROT (test code = 3259) trace Negative - Negative POCT U GLU (test code = 3256) neg Negative - Negative POCT U KETONE (test code = 3258) . Negative - Negative POCT U UROBILI (test code = 3260) . 0.2-1 POCT U BILI (test code = 3261) . Negative - Negative POCT U BLD (test code = 3257) . Negative - Negative POCT U COLOR (test code = 3266) . POCT U APPEAR (test code = 3267) . [facility] URINALYSIS W SPECIFIC [id number] 20:18:00 Test Item Value Reference Range Interpretation Comments POCT U SP GRAV (test code = 3255) . 1.005-1.025 POCT PH U (test code = 3254) . 5-8 POCT U LEUK EST (test code = 3263) . Negative - Negative POCT U NIT (test code = 3262) . Negative - Negative POCT U PROT (test code = 3259) trace Negative - Negative POCT U GLU (test code = 3256) neg Negative - Negative POCT U KETONE (test code = 3258) . Negative - Negative POCT U UROBILI (test code = 3260) . 0.2-1 POCT U BILI (test code = 3261) . Negative - Negative POCT U BLD (test code = 3257) . Negative - Negative POCT U COLOR (test code = 3266) . POCT U APPEAR (test code = 3267) . [facility] URINALYSIS W SPECIFIC [id number] 17:24:00 Test Item Value Reference Range Interpretation Comments POCT U SP GRAV (test code = 3255) . 1.005-1.025 POCT PH U (test code = 3254) . 5-8 POCT U LEUK EST (test code = 3263) . Negative - Negative POCT U NIT (test code = 3262) . Negative - Negative POCT U PROT (test code = 3259) trace Negative - Negative POCT U GLU (test code = 3256) neg Negative - Negative POCT U KETONE (test code = 3258) . Negative - Negative POCT U UROBILI (test code = 3260) . 0.2-1 POCT U BILI (test code = 3261) . Negative - Negative POCT U BLD (test code = 3257) . Negative - Negative POCT U COLOR (test code = 3266) . POCT U APPEAR (test code = 3267) . [facility] URINALYSIS W SPECIFIC [id number] 16:03:00 Test Item Value Reference Range Interpretation Comments POCT U SP GRAV (test code = 3255) . 1.005-1.025 POCT PH U (test code = 3254) 6 mg/dl 5-8 POCT U LEUK EST (test code = Trace Negative - Negative 3263) POCT U NIT (test code = 3262) Neg Negative - Negative POCT U PROT (test code = 3259) Trace Negative - Negative POCT U GLU (test code = 3256) Neg Negative - Negative POCT U KETONE (test code = 3258) None Negative - Negative POCT U UROBILI (test code = 3260) . 0.2-1 POCT U BILI (test code = 3261) . Negative - Negative POCT U BLD (test code = 3257) Trace Negative - Negative POCT U COLOR (test code = 3266) . POCT U APPEAR (test code = 3267) . [facility] URINALYSIS W SPECIFIC [id number] 17:19:00 Test Item Value Reference Range Interpretation Comments POCT U SP GRAV (test code = . 1.005-1.025 3255) POCT PH U (test code = 3254) 5 mg/dl 5-8 POCT U LEUK EST (test code = negative Negative - Negative 3263) POCT U NIT (test code = 3262) negative Negative - Negative POCT U PROT (test code = 3259) trace Negative - Negative POCT U GLU (test code = 3256) negative Negative - Negative POCT U KETONE (test code = 3258) negative Negative - Negative POCT U UROBILI (test code = . 0.2-1 3260) POCT U BILI (test code = 3261) . Negative - Negative POCT U BLD (test code = 3257) . Negative - Negative POCT U COLOR (test code = 3266) . POCT U APPEAR (test code = 3267) . [facility] URINALYSIS W SPECIFIC [id number] 17:19:00 Test Item Value Reference Range Interpretation Comments POCT U SP GRAV (test code = . 1.005-1.025 3255) POCT PH U (test code = 3254) 5 mg/dl 5-8 POCT U LEUK EST (test code = negative Negative - Negative 3263) POCT U NIT (test code = 3262) negative Negative - Negative POCT U PROT (test code = 3259) trace Negative - Negative POCT U GLU (test code = 3256) negative Negative - Negative POCT U KETONE (test code = 3258) negative Negative - Negative POCT U UROBILI (test code = . 0.2-1 3260) POCT U BILI (test code = 3261) . Negative - Negative POCT U BLD (test code = 3257) . Negative - Negative POCT U COLOR (test code = 3266) . POCT U APPEAR (test code = 3267) . [facility] URINALYSIS W SPECIFIC [id number] 16:39:00 Test Item Value Reference Range Interpretation Comments POCT U SP GRAV (test code = 3255) . 1.005-1.025 POCT PH U (test code = 3254) 6 mg/dl 5-8 POCT U LEUK EST (test code = 2+ Negative - Negative 3263) POCT U NIT (test code = 3262) neg Negative - Negative POCT U PROT (test code = 3259) trace Negative - Negative POCT U GLU (test code = 3256) neg Negative - Negative POCT U KETONE (test code = 3258) neg Negative - Negative POCT U UROBILI (test code = 3260) . 0.2-1 POCT U BILI (test code = 3261) . Negative - Negative POCT U BLD (test code = 3257) neg Negative - Negative POCT U COLOR (test code = 3266) POCT U APPEAR (test code = 3267) [facility] URINALYSIS W SPECIFIC [id number] 19:37:00 Test Item Value Reference Range Interpretation Comments POCT U SP GRAV (test code = 3255) . 1.005-1.025 POCT PH U (test code = 3254) 5 mg/dl 5-8 POCT U LEUK EST (test code = . Negative - Negative 3263) POCT U NIT (test code = 3262) . Negative - Negative POCT U PROT (test code = 3259) trace Negative - Negative POCT U GLU (test code = 3256) . Negative - Negative POCT U KETONE (test code = 3258) . Negative - Negative POCT U UROBILI (test code = 3260) . 0.2-1 POCT U BILI (test code = 3261) . Negative - Negative POCT U BLD (test code = 3257) . Negative - Negative POCT U COLOR (test code = 3266) . POCT U APPEAR (test code = 3267) . [facility] URINALYSIS W SPECIFIC [id number] 15:33:00 Test Item Value Reference Range Interpretation Comments POCT U SP GRAV (test code = 3255) . 1.005-1.025 POCT PH U (test code = 3254) 7 mg/dl 5-8 POCT U LEUK EST (test code = Neg Negative - Negative 3263) POCT U NIT (test code = 3262) Neg Negative - Negative POCT U PROT (test code = 3259) Trace Negative - Negative POCT U GLU (test code = 3256) Neg Negative - Negative POCT U KETONE (test code = 3258) None Negative - Negative POCT U UROBILI (test code = 3260) . 0.2-1 POCT U BILI (test code = 3261) . Negative - Negative POCT U BLD (test code = 3257) Trace Negative - Negative POCT U COLOR (test code = 3266) . POCT U APPEAR (test code = 3267) . [facility] [id number] 14:34:00 Test Item Value Reference Range Interpretation Comments POCT PREG (test code = 1605) Positive On board controls acceptable with C Yes Line (test code = 3574) POCT PREG LOT # (test code = 3575) POCT PREG TEST DATE (test code = 3576) [facility] URINALYSIS W/O SPECIFIC [id number] 14:34:00 Test Item Value Reference Range Interpretation [...] code = 3257) negative Negative - Negative [facility] [id number] 14:34:00 Test Item Value Reference Range Interpretation Comments POCT PREG (test code = 1605) Positive On board controls acceptable with C Yes Line (test code = 3574) POCT PREG LOT # (test code = 3575) POCT PREG TEST DATE (test code = 3576) [facility] URINALYSIS W/O SPECIFIC [id number] 14:34:00 Test Item Value Reference Range Interpretation [...] code = 3257) negative Negative - Negative [facility] [id number] 14:31:00 Test Item Value Reference Range Interpretation Comments POCT PREG (test code = 1605) Positive On board controls acceptable with C Yes Line (test code = 3574) POCT PREG LOT # (test code = 3575) POCT PREG TEST DATE (test code = 3576) [facility] [id number] 18:26:00 Test Item Value Reference Range Interpretation Comments POCT PREG (test code Negative = 1605) On board controls Yes acceptable with C Line (test code = 3574) POCT PREG LOT # (test code = 3575) POCT PREG TEST DATE (test code = 3576) ARGENIS (test code = ARGENIS) accurate development and interpretation of all internal controls [facility]
[2022-07-24] MEDS ORDERED: CEFAZOLIN SODIUM 1 GM/VIAL ONE (06:04)
[2022-07-24] MEDS ORDERED: ACETAMINOPHEN 500 MG TAB ONE (06:04)
[2022-07-24] MEDS ORDERED: METRONIDAZOLE 500mg IVPB 500 MG/100 ML BAG IV ONE (06:05)
[2022-07-24] MEDS ORDERED: NA CHLORIDE 0.9% 3,000 ML ONE (06:05)
[2022-07-24] MEDS ORDERED: ONDANSETRON 4 MG/2 ML VIAL ONE (06:05)
[2022-07-24] MEDS ORDERED: IBUPROFEN 400 MG TAB ONE (06:05)
[2022-07-24] MEDS ORDERED: NA CHLORIDE 0.9% 100 ML ONE (06:05)
[2022-07-24 06:07] LABS: Absolute Lymphocytes (CBC) 1.3 K/uL (0.7-4.9); Hematocrit 26.8 % (36.0-45.0); MPV 8.1 fL (7.6-11.3); RBC Red Blood Cell Count 3.88 M/uL (3.86-4.86)
[2022-07-24 06:17] LABS: Protime INR 1.36
[2022-07-24 06:25] LABS: Specific Gravity > 1.030 (1.005-1.030); Urine Bacteria None Seen /HPF (<20); Urine Bilirubin NEGATIVE (Negative); Urine Blood Negative (Negative); Urine Clarity Clear (Clear); Urine Color Yellow (Yellow); Urine Glucose NEGATIVE (Negative); Urine Mucus 4+ /HPF (None Seen); Urine Protein 1+ (Negative); Urine RBC <5 /HPF (None Seen); Urine Urobilinogen 3+ (Normal); Urine pH 6.5 (5.0-7.0)
[2022-07-24 06:25] LABS: AST/SGOT 11 U/L (15-37); Albumin 2.1 g/dL (3.4-5.0); Alkaline Phosphatase 119 U/L (45-117); BUN Blood Urea Nitrogen 11 mg/dL (7-18); Bicarbonate 22 mEq/L (21-32); Bilirubin Total 1.1 mg/dL (0.2-1.0); Glomerular Filtration Rate 145 ml/min (=/>90); Glucose Level 97 mg/dL (74-106); Potassium 3.1 mEq/L (3.5-5.1); Protein, Total 6.4 g/dL (6.4-8.2); Sodium Level 138 mEq/L (136-145)
[2022-07-24 06:32] LABS: ALT/SGPT < 10 U/L (13-56)
--- NOTE | 2022-07-24 07:15 | RAD REPORT ---
EXAM DESCRIPTION: RAD - Chest Single View - 07/24/2022 5:24 am CLINICAL HISTORY: CHEST PAIN COMPARISON: Chest Single View dated 03/30/2020; Chest Pa And Lat (2 Views) dated 04/10/2019 FINDINGS: Lines: None. Lungs: No evidence of edema or pneumonia. Pleural: No significant pleural effusions or pneumothorax. Cardiac: The heart size is within normal limits. Mediastinum: Within normal limits. Bones: No acute fractures. Other: None IMPRESSION: No acute cardiopulmonary disease.
[2022-07-24 07:23] LABS: Anisocytosis 1+; Blood Morphology Comment NOTED (NOT SEEN); Hypochromasia 1+; Platelet Estimate ADEQ; Platelets, Giant 1+; White Blood Cell Scan OK (OK)
--- NOTE | 2022-07-24 07:25 | EKG ---
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
--- NOTE | 2022-07-24 07:25 | EDPHYS ---
Physician Documentation [facility] Name: Sil Gaytan Age: 22 yrs Sex: Female : 2000 Arrival Date: 07/24/2022 Time: 04:46 Bed 19 Private MD: ED Physician Lj Leiva HPI: 07/24 04:58 This 22 yrs old Female presents to ER via Unassigned with complaints of Post sp4 Problem, LTCS ON 07/21/22, Fever. 07:16 Very pleasant 22-year-old female presents with acute onset of pelvic pain, fever, and sp4 also feeling unwell.. 07:17 Patient is 3 days . She has delivered a single on 07/21/2022 at [facility] in [place] . Patient is . Patient delivered at 36 weeks EGA by . Patient went home yesterday and then at home developed fever 100.7 and pelvic pain also reported some purulent discharge and bloody lochia. Patient reported no wound dehiscence at the site. . 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 - Social history:: Smoking status: Patient denies any tobacco usage or history of. Patient uses street drugs, marijuana. - Family history:: not pertinent. ROS: 07:17 Constitutional: Negative for chills, and weight loss, positive for fever, and feeling sp4 unwell. Eyes: Negative for injury, pain, redness, and discharge, ENT: Negative for injury, pain, and discharge, Neck: Negative for injury, pain, and swelling, Cardiovascular: Negative for chest pain, palpitations, and edema, Respiratory: Negative for shortness of breath, cough, wheezing, and pleuritic chest pain, Abdomen/GI: Negative for abdominal pain, nausea, vomiting, diarrhea, and constipation, Back: Negative for injury and pain, : Negative for injury, and swelling, positive for pelvic pain, positive for bloody to purulent lochia MS/Extremity: Negative for injury and deformity, Skin: Negative for injury, rash, and discoloration, Neuro: Negative for headache, weakness, numbness, tingling, and seizure, Psych: Negative for depression, anxiety, Allergy/Immunology: Negative for hives, rash, and allergies Endocrine: Negative for neck swelling, polydipsia, polyuria, polyphagia, and weight changes Hematologic/Lymphatic: Negative for swollen nodes, abnormal bleeding, and unusual bruising Exam: 07:17 Constitutional: This is a well developed, well nourished patient who is awake, alert, sp4 uncomfortable appearing female, and febrile and tachycardic . Head/Face: Normocephalic, atraumatic. Eyes: Pupils equal round and reactive to light, extra-ocular motions intact. Lids and lashes normal. Conjunctiva and sclera are not injected. Cornea within normal limits. Periorbital areas with no swelling, redness, or edema. ENT: Nares patent. No nasal discharge, no septal abnormalities noted. Tympanic membranes are normal and external auditory canals are clear. Oropharynx with no redness, swelling, or masses, exudates, or evidence of obstruction, uvula midline. Mucous membranes moist. Neck: Trachea midline, no thyromegaly or masses palpated, and no cervical lymphadenopathy. Supple, full range of motion without nuchal rigidity, or vertebral point tenderness. No Meningismus. Chest/axilla: Normal chest wall appearance and motion. Nontender with no deformity. No lesions are appreciated. Cardiovascular: Regular rate and rhythm with a normal S1 and S2. No gallops, murmurs, or rubs. Normal PMI, no JVD. No pulse deficits. Respiratory: Lungs have equal breath sounds bilaterally, clear to auscultation and percussion. No rales, rhonchi or wheezes noted. No increased work of breathing, no retractions or nasal flaring. Abdomen/GI: Soft, non-tender, with normal bowel sounds. No distension or tympany. No guarding or rebound. No evidence of tenderness throughout. Back: No spinal tenderness. No costovertebral tenderness. Female : Normal external genitalia. 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 Normal color with no rashes, no lesions, and no evidence of cellulitis. MS/ Extremity: Pulses equal, no cyanosis. Neurovascular intact. Full, normal range of motion. Neuro: Awake and alert, GCS 15, oriented to person, place, time, and situation. Cranial nerves II-XII grossly intact. Motor strength 5/5 in all extremities. Sensory grossly intact. Psych: Awake, alert, with orientation to person, place and time. Behavior, mood, and affect are within normal limits 07:17 ECG was reviewed by the Attending Physician. EKG reveals normal sinus rhythm with 95 sp4 bpm. EKG time 0 539. Vital Signs: 05:02 BP 138 / 83; Pulse 117; Resp 28; Temp 99.3(O); Pulse Ox 99% on R/A; Weight 88.5 kg (M); jb4 Height 5 ft. 6 in. (R); 06:31 BP 139 / 89; Pulse 89; Resp 24; Pulse Ox 98% on R/A; jb4 07:12 BP 138 / 94; Pulse 98; Resp 19 S; Pulse Ox 100% on R/A; kc6 08:45 Temp 98.3(O); kc6 05:02 Body Mass Index 31.49 (88.50 kg, 167.64 cm) jb4 MDM: 05:09 Patient medically screened. sp4 07:24 Differential diagnosis: viral Infection, bacterial infection, bronchitis, pneumonia sp4 UTI, gastroenteritis. Data reviewed: vital signs, nurses notes, lab test result(s), amylase and lipase, CBC, electrolytes, hepatic panel, urinalysis, EKG, radiologic studies. 07:26 Consideration of Admission/Observation Escalation of care including sp4 admission/observation considered. 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 ED course: Patient was discussed and accepted at [facility]. For L\T\D assessment. Presumptive diagnosis acute endometritis. Attending MD at the [facility] requested CT abdomen pelvis on the patient. Patient was sent to CAT scan at this time awaiting on the report . 07:47 ED course: CT images are available now as soon as CT report is ready patient is going sp4 to be transferred to [facility] L\T\D unit. 07/24 05:06 Order name: Blood Culture Adult (2) 4 07/24 05:06 Order name: CBC with Diff; Complete Time: 07:26 sp4 07/24 05:06 Order name: CMP; Complete Time: 07:04 4 07/24 05:06 Order name: Lactate w/ 2H reflex if indic.; Complete Time: 07:04 4 07/24 05:06 Order name: Protime (+inr); Complete Time: 07:04 4 07/24 05:06 Order name: Ptt, Activated; Complete Time: 07:04 4 07/24 05:06 Order name: Urinalysis w/ reflexes; Complete Time: 07:04 4 07/24 07:24 Order name: CBC Smear Scan; Complete Time: 07:26 EDMS 07/24 07:25 Order name: SARS RAPID 4 07/24 05:06 Order name: Chest Single View XRAY; Complete Time: 07:26 4 07/24 07:07 Order name: CT Abd/Pelvis - IV Contrast Only 4 07/24 05:06 Order name: EKG; Complete Time: 05:07 4 07/24 05:06 Order name: Accucheck; Complete Time: 05:07/24 05:06 Order name: Cardiac monitoring; Complete Time: 05:53 07/24 05:06 Order name: EKG - Nurse/Tech; Complete Time: 05:53 07/24 05:06 Order name: IV Saline Lock - Large Bore; Complete Time: 05:53 07/24 05:06 Order name: Labs collected and sent; Complete Time: 05:53 07/24 05:06 Order name: O2 Per Protocol; Complete Time: 05:53 07/24 05:06 Order name: O2 Sat Monitoring; Complete Time: 05:07/24 05:06 Order name: Vital Signs; Complete Time: 05:53 EC:17 Rate is 95 beats/min. Rhythm is regular, Normal Sinus Rhythm. QRS [place] is Normal. MD sp4 interval is normal. QRS interval is normal. QT interval is normal. T waves are Normal. No ST changes noted. Clinical impression: Normal ECG. Interpreted by me. Administered Medications: 06:10 Drug: Acetaminophen PO 1000 mg Route: PO; jb4 08:30 Follow up: Response: No adverse reaction; Temperature is decreased kc6 06:10 Drug: Ondansetron IVP 4 mg Route: IVP; Site: right antecubital; jb4 08:30 Follow up: Response: No adverse reaction kc6 06:10 Drug: Ibuprofen PO 800 mg Route: PO; jb4 08:30 Follow up: Response: No adverse reaction; Temperature is decreased kc6 06:10 Drug: NS 0.9% IV (30 ml/kg) 30 ml/kg Route: IV; Rate: bolus; Site: right antecubital; jb4 08:30 Follow up: Response: No adverse reaction; IV Status: Completed infusion; IV Intake: kc6 2000ml 06:10 Drug: metroNIDAZOLE IVPB 500 mg Volume: 100 ml; Route: IVPB; Rate: 200 ml/hr; Infused jb4 Over: 30 mins; Site: right antecubital; 06:40 Follow up: Response: No adverse reaction; IV Status: Completed infusion; IV Intake: jb4 100ml 06:20 Drug: ceFAZolin IVPB 2 grams Route: IVPB; Infused Over: 30 mins; Site: left antecubital;jb4 06:50 Follow up: Response: No adverse reaction; IV Status: Completed infusion; IV Intake: jb4 100ml 07:24 Drug: morphine IVP or IV 2 mg Route: IVP; Infused Over: 4 mins; Site: right antecubital;kc6 08:29 Follow up: Response: No adverse reaction; Pain is decreased; RASS: Alert and Calm (0) kc6 07:24 Drug: Ketorolac IVP 15 mg Route: IVP; Site: right antecubital; kc6 08:29 Follow up: Response: No adverse reaction; Pain is decreased kc6 Disposition Summary: 07/24/22 07:24 Transfer Ordered Transfer Location: [facility]-System sp4 Reason: Higher level of care sp4 Condition: Stable sp4 Problem: new sp4 Symptoms: have improved sp4 Accepting Physician: [facility] Alejandra Hernandez\Heather Blanco(07/24/22 08:45) eb Diagnosis - Severe sepsis without septic shock sp4 - fever. Acute endometritis sp4 Forms: - Medication Reconciliation Form sp4 - SBAR form sp4 Critical care time excluding procedures: 07:22 Critical care time: Bedside Care: 42 minutes, Consultation: 12 minutes, Family sp4 Intervention: 12 minutes. Total time: 66 minutes Signatures: Dispatcher [employer] EDBeau Velez RN RN jb4 Dana Chavez Kaitlyn, RN RN kc6 Lj Leiva MD MD sp4 Corrections: (The following items were deleted from the chart) 08:12 07:24 [facility] uMndo - L and D , OB accepted sp4 eb 08:45 08:12 [facility] Alejandra L\T\D Dr. Blanco eb eb
--- NOTE | 2022-07-24 07:25 | ER ---
Nurse's Notes [facility] Name: Sil Gaytan Age: 22 yrs Sex: Female : 2000 Arrival Date: 07/24/2022 Time: 04:46 Bed 19 Private MD: Diagnosis: Severe sepsis without septic shock; fever. Acute endometritis Presentation: 07/24 05:02 Chief complaint: Patient states: I was diagnosed with a UTI on the , had a jb4 on the , and when I got home form the hospital today I had a fever of 100.7. Coronavirus screen: At this time, the client does not indicate any symptoms associated with coronavirus-19. Ebola Screen: No symptoms or risks identified at this time. Initial Sepsis Screen: Does the patient meet any 2 criteria? RR > 20 per min. HR > 90 bpm. Yes Does the patient have a suspected source of infection? Yes: Dysuria/Frequency/Urgency/UTI Skin breakdown/wound. Risk Assessment: Do you want to hurt yourself or someone else? Patient reports no desire to harm self or others. Onset of symptoms was July 17, 2022. Transition of care: patient was not received from another setting of care. 05:02 Method Of Arrival: Ambulatory jb4 05:02 Acuity: DELMAR 2 jb4 ORDER ENTRY ADMINISTRATOR: 08:45 2, Full Term 0, Premature 2, 0, Living 2, LMP N/A - Recent kc6 Historical: - Allergies: 05:04 Codeine; jb4 05:04 PENICILLINS; jb4 05:04 Prednisone; jb4 - Home Meds: 05:04 Antiobitics [Active]; [place] Oral [Active]; Oxytocin [Active]; Motrin Oral [Active]; jb4 Acetaminophen Oral [Active]; - PMHx: 05:04 Asthma; jb4 - PSHx: 05:04 ; jb4 - Immunization history:: Adult Immunizations unknown. - Social history:: Smoking status: Patient denies any tobacco usage or history of. Patient uses street drugs, marijuana. - Family history:: not pertinent. Screenin:15 [facility] ED Fall Risk Assessment (Adult) History of falling in the last 3 months, jb4 including since admission No falls in past 3 months (0 pts) Confusion or Disorientation No (0 pts) Score/Fall Risk Level 0 - 2 = Low Risk Oriented to surroundings, Maintained a safe environment. Abuse screen: Denies threats or abuse. Nutritional screening: No deficits noted. Tuberculosis screening: No symptoms or risk factors identified. Assessment: 05:15 General: Appears in no apparent distress. comfortable, Behavior is calm, cooperative, jb4 appropriate for age. Pain: Complains of pain in suprapubic area Pain does not radiate. Pain currently is 8 out of 10 on a pain scale. Neuro: Level of Consciousness is awake, alert, obeys commands, Oriented to person, place, time, situation. Cardiovascular: Patient's skin is warm and dry. Respiratory: Airway is patent Respiratory effort is even, unlabored, Respiratory pattern is regular, symmetrical. GI: No signs and/or symptoms were reported involving the gastrointestinal system. : Reports vaginal bleeding that is. EENT: No signs and/or symptoms were reported regarding the EENT system. Derm: Skin is intact, Skin is pink, warm \T\ dry. Musculoskeletal: Circulation, motion, and sensation intact. Range of motion: intact in all extremities. 06:15 Reassessment: Patient appears in no apparent distress at this time. Patient and/or jb4 family updated on plan of care and expected duration. Pain level reassessed. Patient is alert, oriented x 3, equal unlabored respirations, skin warm/dry/pink. 07:00 Reassessment: Patient appears in no apparent distress at this time. Patient and/or kc6 family updated on plan of care and expected duration. Pain level reassessed. Patient is alert, oriented x 3, equal unlabored respirations, skin warm/dry/pink. 08:00 Reassessment: Patient appears in no apparent distress at this time. No changes from kc6 previously documented assessment. Patient and/or family updated on plan of care and expected duration. Pain level reassessed. Patient is alert, oriented x 3, equal unlabored respirations, skin warm/dry/pink. Vital Signs: 05:02 BP 138 / 83; Pulse 117; Resp 28; Temp 99.3(O); Pulse Ox 99% on R/A; Weight 88.5 kg (M); jb4 Height 5 ft. 6 in. (R); 06:31 BP 139 / 89; Pulse 89; Resp 24; Pulse Ox 98% on R/A; jb4 07:12 BP 138 / 94; Pulse 98; Resp 19 S; Pulse Ox 100% on R/A; kc6 08:45 Temp 98.3(O); kc6 05:02 Body Mass Index 31.49 (88.50 kg, 167.64 cm) jb4 ED Course: 04:47 Patient arrived in ED. jj6 04:58 Lj Leiva MD is Attending Physician. sp4 05:02 Beau Tanner, ABDIFATAH is Primary Nurse. jb4 05:04 Triage completed. jb4 05:04 Arm band placed on right wrist. jb4 05:26 Chest Single View XRAY In Process Unspecified. EDMS 05:45 Initial lab(s) drawn, by ED staff, sent to lab. Inserted saline lock: 20 gauge in right jb4 antecubital area, using aseptic technique. Blood collected. 05:45 Initial lab(s) drawn, by ED staff, sent to lab. First set of blood cultures drawn by ED jb4 staff. Second set of blood cultures drawn by me. Inserted saline lock: 18 gauge in left antecubital area, using aseptic technique. Blood collected. 05:59 Blood Culture Adult (2) Sent. as7 05:59 CBC with Diff Sent. as7 05:59 CMP Sent. as7 05:59 Lactate w/ 2H reflex if indic. Sent. as7 05:59 Protime (+inr) Sent. as7 05:59 Ptt, Activated Sent. as7 05:59 Urinalysis w/ reflexes Sent. as7 06:15 Patient has correct armband on for positive identification. Bed in low position. Call [facility] light in reach. Side rails up X 1. Client placed on continuous cardiac and pulse oximetry monitoring. NIBP monitoring applied. 06:36 Blood Culture Adult (2) Sent. as7 06:57 initiated a transfer with Kishor from the [facility] transfer center. eb 07:00 Report received from ABDIFATAH Tatum. kc6 07:04 connected the obgyn [employer] machine tender for [facility] Alejandra with Dr. Leiva for patient transfer eb consultation. 07:07 administrative approval given by Kishor Saravia from the [facility] transfer center/ patient eb has been accepted to [facility] Alejandra L\T\Heatehr/ Dr. Geoffrey Blanco has accepted the patient in transfer/ report to be called to [phone]. 07:37 CT Abd/Pelvis - IV Contrast Only In Process Unspecified. EDMS 08:57 No provider procedures requiring assistance completed. Patient transferred, IV remains kc6 in place. Administered Medications: 06:10 Drug: Acetaminophen PO 1000 mg Route: PO; jb4 08:30 Follow up: Response: No adverse reaction; Temperature is decreased kc6 06:10 Drug: Ondansetron IVP 4 mg Route: IVP; Site: right antecubital; jb4 08:30 Follow up: Response: No adverse reaction kc6 06:10 Drug: Ibuprofen PO 800 mg Route: PO; jb4 08:30 Follow up: Response: No adverse reaction; Temperature is decreased kc6 06:10 Drug: NS 0.9% IV (30 ml/kg) 30 ml/kg Route: IV; Rate: bolus; Site: right antecubital; jb4 08:30 Follow up: Response: No adverse reaction; IV Status: Completed infusion; IV Intake: kc6 2000ml 06:10 Drug: metroNIDAZOLE IVPB 500 mg Volume: 100 ml; Route: IVPB; Rate: 200 ml/hr; Infused jb4 Over: 30 mins; Site: right antecubital; 06:40 Follow up: Response: No adverse reaction; IV Status: Completed infusion; IV Intake: jb4 100ml 06:20 Drug: ceFAZolin IVPB 2 grams Route: IVPB; Infused Over: 30 mins; Site: left antecubital;jb4 06:50 Follow up: Response: No adverse reaction; IV Status: Completed infusion; IV Intake: jb4 100ml 07:24 Drug: morphine IVP or IV 2 mg Route: IVP; Infused Over: 4 mins; Site: right antecubital;kc6 08:29 Follow up: Response: No adverse reaction; Pain is decreased; RASS: Alert and Calm (0) kc6 07:24 Drug: Ketorolac IVP 15 mg Route: IVP; Site: right antecubital; kc6 08:29 Follow up: Response: No adverse reaction; Pain is decreased kc6 Medication: 08:57 VIS not applicable for this client. kc6 Intake: 06:40 IV: 100ml; Total: 100ml. jb4 06:50 IV: 100ml; Total: 200ml. jb4 08:30 IV: 2000ml; Total: 2200ml. kc6 Outcome: 07:24 ER care complete, transfer ordered by sp4 08:45 Patient left the ED. eb 08:45 Transferred by ground EMS to [facility], Transfer form kc6 completed. 08:45 Condition: improved 08:45 Instructed on the need for transfer. kc6 Signatures: Dispatcher [employer] EDBeau Velez RN RN jb4 Dana Chavez Jennifer jj6 Keila Amaro RN RN kc6 Alisha Maldonado7 Lj Leiva MD MD sp4
[2022-07-24] MEDS ORDERED: MORPHINE 2 MG/ML SYR ONE (07:28)
[2022-07-24] MEDS ORDERED: KETOROLAC 30 MG/ML INJ ONE (07:28)
--- NOTE | 2022-07-24 07:46 | RAD REPORT ---
EXAM DESCRIPTION: CTAbdomen Pelvis W Contrast - 07/24/2022 7:35 am CLINICAL HISTORY: ABD PAIN COMPARISON: No comparisons TECHNIQUE: CT of the abdomen and pelvis was performed without IV contrast. All CT scans are performed using dose optimization technique as appropriate and may include automated exposure control or mA/KV adjustment according to patient size. FINDINGS: Lower chest: Dependent atelectasis. Liver: No acute abnormality or suspicious lesions. Biliary: No biliary ductal dilatation. Stomach: No significant focal abnormality. Duodenum: No significant focal abnormality. Pancreas: No significant abnormality. Spleen: Splenomegaly. Adrenal: No suspicious lesions. Kidney/ureter: No hydronephrosis. No renal calculi. Retroperitoneum: No retroperitoneal adenopathy. Vascular: No aneurysm. Bowel: No significant focal abnormality. Normal appendix. Peritoneum: Small volume of nonspecific pelvic free fluid. No abscess appreciated. Bladder: Grossly unremarkable. Reproductive: Enlarged post gravid uterus. Bones: No acute fracture. Other: defect with subincisional fluid. IMPRESSION: Status post recent with expected postoperative changes. Subincisional and pelv ic free fluid which is not unexpected. No findings to suggest an abscess at this time. Normal appendi x.
[2022-07-24 08:24] LABS: SARS-CoV-2 Antigen Rapid Res Negative (Negative)
[2022-07-24 09:03] VITALS: TEMP 99.3
[2022-07-24 09:17] VITALS: BP 138/94; O2SAT 100
== END 2022-07-24 08:45 | disposition short-term general hospital (02) ==
LOC: ER 04:46
DX: A41.9 Sepsis, unspecified organism (principal); O86.12 Endometritis following delivery; R65.20 Severe sepsis without septic shock; Z20.822 Contact with and (suspected) exposure to COVID-19; Z88.0 Allergy status to penicillin; Z88.5 Allergy status to narcotic agent; Z88.8 Allergy status to other drugs, medicaments and biological substances
CPT/HCPCS: 93005; 87040 ×2; 85025; 81001; 36415; 85610; 83605; 85730; 80053; 74177; 71045; 99285; 87811; Q9967; J2270; J2405; J7030; J0690

== ENCOUNTER 2022-07-28 16:43 | Emergency (ER) | payer OTHER ==
--- OUTSIDE RECORDS SUMMARY | 2022-07-28 16:57 | XMS REPORT | Continuity of Care Document ---
:2000 Author Organization [facility] t Address [address] [facility] [address] [place] [address] Care Team Providers Name Role Phone Tushar Villarreal Primary Care Physician [phone] KASEY BLANCO Attending Clinician Unavailable KASEY BLANCO Attending Clinician Unavailable MOSHE AGOSTO Attending Clinician Unavailable Patt Nova RN Attending Clinician Unavailable Tushar Villarreal Attending Clinician [phone] HETAL NORRIS Attending Clinician Unavailable Hetal Norris MD Attending Clinician TUSHAR LAN Attending Clinician Unavailable AUSTIN ARZOLA Attending Clinician Unavailable Austin Arzola MD Attending Clinician Doctor Unassigned, [place] Attending Clinician Unavailable [facility] Attending Clinician Unavailable Antonette Solano CNM Attending Clinician ANTONETET SOLANO Attending Clinician Unavailable SHEREEN TRAVIS Attending Clinician Unavailable Risk, Miu-Yvhey-Wz/High Attending Clinician Unavailable Shereen Travis MD Attending Clinician Ultrasound, Ang-Mfm Attending Clinician Unavailable EDWIN CAGE Attending Clinician Unavailable Fauzia HIRENPEdwin Attending Clinician David Cooper DO Attending Clinician SARA SNYDER Attending Clinician Unavailable SARA SNYDER Attending Clinician Unavailable Provider, Ang-Rmchp Temp Attending Clinician Unavailable Ramo ACEVEDOP, Krystlea R Attending Clinician KRYSTLE RALPHA R Attending Clinician Unavailable JAM SAUNDERS Attending Clinician Unavailable CLINTON CRUMP Attending Clinician Unavailable Madonna QUINONEZ, Ernesto Rosario Attending Clinician ERNESTO PEACOCK Attending Clinician Unavailable Jamshid ACEVEDOP, Rosio Attending Clinician Dylan Prieto MD Attending Clinician Maria III, SPEARER, R Attending Clinician Lab, Ang-Rmchp Attending Clinician Unavailable Jeffery Dumont DO Attending Clinician Radha Charlton MD Attending Clinician Selam Fields Attending Clinician SELAM ALVES Attending Clinician Unavailable KASEY BLANCO Admitting Clinician Unavailable AUSTIN ARZOLA Admitting Clinician Unavailable HETAL NORRIS Admitting Clinician Unavailable Hetal Norris MD Admitting Clinician Austin Arzola MD Admitting Clinician SARA SNYDER Admitting Clinician Unavailable Payers Payer Name Policy Type Policy Number Effective Date Expiration Date Daniel del angel AMCALVINGROUP BEN [id number] 2021 00:00:00 Problems Condition Condition Condition Status Onset Resolution Last Treating Co mments Source Name Details Category Date Date Treatment Clinician Date Obesity Obesity Disease Active Univers (BMI (BMI 5-28 ity of 30-39.9) 30-39.9) 00:00: 00 Medical Branch Postoperat Postoperat Disease Active U nivers chris fever hcris fever 5-28 ity of 00:00: 00 Medical Branch Disease Active Univers premature premature 5-25 ity of rupture of rupture [place] 00:[place] membranes membranes 00 [facility] (PPROM) (PPROM) [place] with onset with onset of labor of labor within 24 within 24 hours of hours of rupture in rupture in third third trimester, trimester, antepartum antepartum 36 weeks 36 weeks Disease Active Unive rs gestation gestation 5-25 ity of of of 00:00: [place] [address] [facility] Liveborn Liveborn Disease Active Unive rs infant, of infant, of 5-25 it y of [place] , , 00 Me dical born in born in [facility] hospital by by delivery delivery UTI in UTI in Disease Active Overview: Univer s 5-24 Formattin i ty of 00:00: g of this 00 note Medical might be Branch different from the original. Per meds sent and patient notified Supervisio Supervisio Disease Active U nivers n of n of 3-02 ity of high-risk high-risk 00:[place] [address] [facility] Multiparit Multiparit Disease Active U nivers y y 3-02 ity of 00:00: Medical Branch History of History of Disease Active 2021-02 U nivers pre-eclamp pre-eclamp 0-27 it y of [place] in 00:00: [place] prior prior 00 Medical , , Br anch currently currently Disease Active 2021-02 Uni vers related related 0-27 ity of nausea, nausea, 00:00: [place] antepartum antepartum 00 Me dical Branch Declines Declines Disease Active 2021-02 Unive rs flu flu 0-27 ity of vaccine vaccine 00:00: [place] 00 Medical Branch History of History of Disease Active 2021-02 U nivers anxiety anxiety 0-27 ity of and and 00:00: [place] depression depression 00 Me dical Branch Missed Missed Disease Active 2021-02 Univers menses menses 0-13 ity of 00:00: [place] 00 Medical Branch History of History of Disease Active 2021-02 U nivers 0-13 ity of delivery, delivery, 00:00: [place] currently currently 00 Medi lottie Branch Other [...] Disease Active 2020-02 Uni vers for for 03-20 ity of surve[place] [...] Univers during during 0-29 ity of 00:00: [place] Medical Branch Allergies, Adverse Reactions, Alerts Allergy [...] PREDNISO DRUG Active Rash Univers LONE INGREDI 407 ity of 00:00: [place] 00 Medical Branch Penicill Propensi Active Rash Univer s ins ty to -07 ity of adverse 00:00: [place] reaction Medical s Branch Social History Social Habit Start Date Stop Date Quantity Comments Source ASSERTION 2021-11-25 University of 00:00:00 [place] Medical Branch History [facility] o f Alcohol Std [place] Medical Drinks Branch History [facility] o f Alcohol Binge [place] Medic al Branch History [facility] o f Alcohol Comment [place] Med ical Branch Alcohol intake 2022-07-22 2022-07-22 Ex-drinker [facility] 00:00:00 00:00:00 (finding) [facility] Exposure to 2022-07-11 2022-07-21 Not sure [facility] SARS-CoV-2 00:00:00 10:35:00 [facility] (event) [place] Tobacco use and 2022-07-21 2022-07-21 Smokeless tobacco Un iversity of exposure 00:00:00 00:00:00 non-user [place] Medical [place] History SDOH 2018-12-20 2018-12-20 1 University o f Alcohol Frequency 00:00:00 00:00:00 [facility] [place] Sex Assigned At 2000 2002 Universit y of 00:00:00 00:00:00 [place] [facility] Smoking Status Start Date Stop Date Source Never smoked tobacco [facility] Medications Ordered Filled Start Stop Current Ordering Indication Dosage Frequency Signature Comments Components Source Medication Medication Date Date Medication? Clinician (SIG) Name Name [facility] 2022- No 40meq 40 mEq, Univers (KLOR-CON 07-25 Oral, ity of M20) tablet 06:15: 13:41 DAILY, 2 [place] 40 mEq 00 :00 doses, Medical First dose Branch on Mon07/25/22 at 0115, Last dose on Mon07/25/22 at 0900, Routine ferrous Yes 325mg 325 mg, Univer s sulfate 07-25 Oral, BID, ity of tablet 325 01:00: First dose [place] mg 00 on [facility] 07/24/22 at Branch 2000, Until Discontinu ed, Routine ceFAZolin 2022- Yes 1000mg 1,000 mg, Univers (ANCEF) 07-24 05-30 IV ity of 1,000 mg in 19:00: 18:59 Piggyback, [place] NaCl 0.9% 00 :00 Q8H ABX, 6 Medi lottie (NS) 100 mL doses, Branch MINI-BAG First dose (after last modificati on) on Mon07/24/22 at 1400, Last dose on Mon07/26/22 at 0600, Administer over 30 Minutes, 100 mL
Reas on for Anti-Infec tive: Documented Infection< br>Documen brendan Infection Site: Urine
D uration of Therapy: Other (see Comments) rho(D) 2022-0 Yes 300ug 300 mcg, Univer s immune 07-24 Intramuscu ity of globulin 15:24: lar, ONCE, [place] (RHOGAM) 51 For 1 Medical syringe 300 dose, Branch mcg Conditiona l, Routine HYDROcodone 2022-0 Yes 2{tbl} 2 tablet, Univers -acetaminop - Oral, ity of hen (NORCO 15:23: Q6HPRN, [place] 5) 5-325 mg 27 Starting Medi lottie tablet 2 on [place] Branch tablet 07/24/22 at 1023, Until Discontinu ed, Routine, Pain (scale 7-10), Alternate with Ibuprofen HYDROcodone 2022-0 Yes 1{tbl} 1 tablet, Univers -acetaminop - Oral, ity of hen (NORCO 15:23: Q6HPRN, [place] 5) 5-325 mg 22 Starting Medi lottie tablet 1 on [place] Branch tablet 07/24/22 at 1023, Until Discontinu ed, Routine, Pain (scale 4-6), Alternate with Ibuprofen diphenhydrA 2022-0 Yes 25mg 25 mg, Univ ers MINE 07-24 Slow IV ity of (BENADRYL) 15:21: Push, [place] injection 28 Q6HPRN, Medical 25 mg Starting Branch on 07/24/22 at 1021, Until Discontinu ed, Routine, Itching diphenhydrA 2022-0 Yes 25mg 25 mg, Univ ers MINE 07-24 Oral, ity of (BENADRYL) 15:21: Q6HPRN, [place] tablet 25 28 Starting Medica l mg on [place] Branch 07/24/22 at 1021, Until Discontinu ed, Routine, Sleep, Itching ondansetron 0 Yes 4mg 4 mg, Slow Univers (ZOFRAN 07-24 IV Push, ity of (PF)) 15:21: Q8HPRN, [place] injection 4 28 Starting Medi lottie mg on [facility] 07/24/22 at 1021, Until Discontinu ed, Routine, Nausea and Vomiting (N/V) bisacodyL Yes 10mg 10 mg, Univer s (DULCOLAX) 07-24 Rectal, ity of suppository 15:21: QDAILYPRN, [place] 10 mg 28 Starting Medical on [place] Branch 07/24/22 at 1021, Until Discontinu ed, Routine, Constipati on simethicone Yes 160mg 160 mg, Un odilon (GAS RELIEF 07-24 Oral, ity of (SIMETHICON 15:21: PC+HSPRN, [place] E)) 28 Starting Medical chewable on [facility] tablet 160 07/24/22 at mg 1021, Until Discontinu ed, Routine, Gas docusate Yes 200mg 200 mg, Unive rs (COLACE) 07-24 Oral, ity of capsule 200 15:21: QDAILYPRN, [place] mg 28 Starting Medical on [facility] 07/24/22 at 1021, Until Discontinu ed, Routine, Constipati on magnesium Yes 30mL 30 mL, Univer s hydroxide 07-24 Oral, ity of (MILK OF 15:21: QDAILYPRN, [place] MAGNESIA) 28 Starting Medica l 400 mg/5 mL on [facility] suspension 07/24/22 at 30 mL 1021, Until Discontinu ed, Routine, Constipati on lactated 2022- No 1000mL at 125 Univ ers ringers IV 07-24-28 mL/hr, ity of infusion 15:21: 16:25 1,000 mL, [place] 1,000 mL 28 :00 IV Medical Infusion, Branch PRN, 1 dose, Starting on [place] 07/24/22 at 1021, Until Discontinu ed, Routine 2022- No Take by Unive rs 25/iron 07-23 05-27 mouth. ity of fum/folic/d 12:50: 00:00 [facility] 40 :00 Medical (-1 Branch ORAL) HYDROcodone 2022- Yes 1{tbl} 1 tablet, Univers -acetaminop 07-23 05-29 Oral, ity of hen (NORCO 01:41: 01:40 Q6HPRN, [place] 5) 5-325 mg 26 :26 Starting Medi lottie tablet 1 on Mon Branch tablet 07/22/22 at 2040, Until 07/24/22 at 2039, Routine, Pain (scale 4-6) Nitrofurant 2022- Yes 100mg 100 mg, U nivers oin&Nit. 07-23 Oral, BID, ity of Macrocryst 01:00: 00:59 14 doses, [place] (MACROBID) 00 :00 First dose Med ical 100 mg (after Branch capsule 100 last mg modificati on) on Mon07/22/22 at 1999, Last dose on Mon07/29/22 at 0800, Routine
Reason for Anti-Infec tive: Documented Infection< br>Documen brendan Infection Site: Urine
D uration of Therapy: 7 days Nitrofurant 2022- Yes 100mg 100 mg, U nivers oin&Nit. 07-23 Oral, BID, ity of Macrocryst 01:00: 00:59 14 doses, [place] (MACROBID) 00 :00 First dose Med ical 100 mg (after Branch capsule 100 last mg modificati on) on Mon07/22/22 at 1999, Last dose on Mon07/29/22 at 0800, Routine
Reason for Anti-Infec tive: Documented Infection< br>Documen brendan Infection Site: Urine
D uration of Therapy: 7 days Yes [id number] 1{tbl} Take 1 Univers vitamin 5-27 tablet by ity of w/FA tablet 00:00: mouth in [place] 00 the Medical morning. Branch docusate Yes [id number] 200mg Take 2 U nivers 100 mg 5-27 capsules ity of capsule 00:00: by mouth [place] [id number] once daily Medical as needed Branch for Constipati on. ferrous Yes [id number] 325mg Take 1 Un odilon sulfate 325 5-27 tablet by ity of mg (65 mg 00:00: [place] in [place] iron) 00 the Medical tablet morning Branch and 1 tablet in the evening. ibuprofen 0 Yes [id number] 600mg Take 1 Univers 600 mg 5-27 tablet by ity of tablet 00:00: mouth [place] 00 every 6 Medical (six) Branch hours as needed (Pain). Take with food or milk. 0 Yes [id number] 1{tbl} Take 1 Univers vitamin 5-27 tablet by ity of w/FA tablet 00:00: mouth in [place] 00 the Medical morning. Branch docusate Yes [id number] 200mg Take 2 U nivers 100 mg 5-27 capsules ity of capsule 00:00: by mouth [place] 00 once daily Medical as needed Branch for Constipati on. ferrous Yes [id number] 325mg Take 1 Un odilon sulfate 325 5-27 tablet by ity of mg (65 mg 00:00: [place] iron) 00 the Medical tablet morning Branch and 1 tablet in the evening. Yes [id number] 1{tbl} Take 1 Univers vitamin 5-27 tablet by ity of w/FA tablet 00:00: mouth in [place] 00 the Medical morning. Branch docusate Yes [id number] 200mg Take 2 U nivers 100 mg 5-27 capsules ity of capsule 00:00: by mouth [place] 00 once daily Medical as needed Branch for Constipati on. ferrous 0 Yes [id number] 325mg Take 1 Un odilon sulfate 325 5-27 tablet by ity of mg (65 mg 00:00: mouth [place] iron) 00 the Medical tablet morning Branch and 1 tablet in the evening. Yes [id number] 1{tbl} Take 1 Univers vitamin 5-27 tablet by ity of w/FA tablet 00:00: mouth in [place] 00 the Medical morning. Branch docusate 0 Yes [id number] 200mg Take 2 U nivers 100 mg 5-27 capsules ity of capsule 00:00: by mouth [place] 00 once daily Medical as needed Branch for Constipati on. ferrous 0 Yes [id number] 325mg Take 1 Un odilon sulfate 325 5-27 tablet by ity of mg (65 mg 00:00: mouth [place] iron) 00 the Medical tablet morning Branch and 1 tablet in the evening. Yes [id number] 1{tbl} Take 1 Univers vitamin 5-27 tablet by ity of w/FA tablet 00:00: mouth in [place] 00 the Medical morning. Branch docusate Yes [id number] 200mg Take 2 U nivers 100 mg 5-27 capsules ity of capsule 00:00: by mouth [place] 00 once daily Medical as needed Branch for Constipati on. ferrous Yes [id number] 325mg Take 1 Un odilon sulfate 325 5-27 tablet by ity of mg (65 mg 00:00: mouth [place] iron) 00 the Medical tablet morning Branch and 1 tablet in the evening. HYDROcodone 2022- Yes [id number] 1{tbl} Take 1 U nivers -acetaminop 5-27 06-04 tablet by it y of hen 5-325 00:00: 04:59 mouth [place] mg tablet 00 :00 every 6 Medical (six) Branch hours as needed (Pain scale above 4) for up to 7 days. Do not exceed 3 grams of acetaminop hen in 24 hours. Indication s: acute pain ibuprofen 2022- No [id number] 600mg Take 1 Univers 600 mg 5-27 05-28 tablet by ity of tablet 00:00: 00:00 mouth [place] 00 :00 every 6 Medical (six) Branch hours as needed (Pain). Take with food or milk. HYDROcodone 2022- No [id number] 1{tbl} Take 1 U nivers -acetaminop 5-27 05-28 tablet by it y of hen 5-325 00:00: 00:00 mouth [place] mg tablet 00 :00 every 6 Medical (six) Branch hours as needed (Pain scale above 4) for up to 7 days. Do not exceed 3 grams of acetaminop hen in 24 hours. Indication s: acute pain ibuprofen Yes 600mg 600 mg, Univ ers (IBU) 5-26 Oral, Q6H, ity of tablet 600 23:00: First dose [place] mg 00 on Mon Medical 07/22/22 at Branch 1800, Until Discontinu ed, Routine ibuprofen 2022-0 Yes 600mg 600 mg, Univ ers (IBU) - Oral, Q6H, ity of tablet 600 23:00: First dose [place] mg 00 on Mon Medical 07/22/22 at Branch 1800, Until Discontinu ed, Routine acetaminoph 2022-0 Yes 650mg 650 mg, Un odilon en 07-22 Oral, ity of (TYLENOL) 20:00: Q6HPRN, [place] tablet 650 00 Starting Medic al mg on Mon Branch 07/22/22 at 1500, Until Discontinu ed, Routine, Pain acetaminoph 2022-0 Yes 650mg 650 mg, Un odilon en 07-22 Oral, ity of (TYLENOL) 20:00: Q6HPRN, [place] tablet 650 00 Starting Medic al mg on Mon Branch 07/22/22 at 1500, Until Discontinu ed, Routine, Pain acetaminoph 2022- 202- No 1000mg 1,000 mg, Univers en ADULT 07-22- IV ity of (OFIRMEV) 02:00: 15:02 Infusion, [place] injection 00 :00 at 400 Medical 1,000 mg mL/hr Branch Administer over 15 Minutes, Q6H, 3 doses, First dose (after last modificati on) on Mon07/21/22 at 2100, Last dose on Mon07/22/22 at 0600, Routine
Indicatio n: Perioperat chris Patient ketorolac 2022-0 2022- No 30mg 30 mg, Unive rs (TORADOL) 07-21 05-26 Slow IV ity of injection 23:00: 16:43 Push, Q6H, [place] 30 mg 00 :00 4 doses, Medical First dose Branch on Mon07/21/22 at 1800, Last dose on Mon07/22/22 at 1200, Routine lactated 2022-0 202- No 1000mL at 125 Univ ers ringers IV 07-21 05-25 mL/hr, ity of infusion 21:30: 20:12 1,000 mL, [place] 1,000 mL 00 :06 IV Medical Infusion, Branch ONCE, 1 dose, On Mon07/21/22 at 1630, Routine diphenhydrA 2022-0 Yes 25mg 25 mg, Univ ers MINE 5-25 Slow IV ity of (BENADRYL) 20:34: Push, [place] injection 05 Q6HPRN, Medical 25 mg Starting Branch on [place] 07/21/22 at 1534, Until Discontinu ed, Routine, Itching diphenhydrA 2022-0 Yes 25mg 25 mg, Univ ers MINE 5-25 Oral, ity of (BENADRYL) 20:34: Q6HPRN, [place] tablet 25 05 Starting Medica l mg on [facility] Branch 07/21/22 at 1534, Until Discontinu ed, Routine, Sleep, Itching ondansetron 2022-0 Yes 4mg 4 mg, Slow Univers (ZOFRAN 5-25 IV Push, ity of (PF)) 20:34: Q8HPRN, [place] injection 4 05 Starting Medi lottie mg on [facility] Branch 07/21/22 at 1534, Until Discontinu ed, Routine, Nausea and Vomiting (N/V) bisacodyL 0 Yes 10mg 10 mg, Univer s (DULCOLAX) 5-25 Rectal, ity of suppository 20:34: QDAILYPRN, [place] 10 mg 05 Starting Medical on [facility] Branch 07/21/22 at 1534, Until Discontinu ed, Routine, Constipati on simethicone 0 Yes 160mg 160 mg, Un odilon (GAS RELIEF 5-25 Oral, ity of (SIMETHICON 20:34: PC+HSPRN, [place] E)) 05 Starting Medical chewable on [facility] tablet 160 07/21/22 at mg 1534, Until Discontinu ed, Routine, Gas docusate 0 Yes 200mg 200 mg, Unive rs (COLACE) 5-25 Oral, ity of capsule 200 20:34: QDAILYPRN, [place] mg 05 Starting Medical on [facility] Branch 07/21/22 at 1534, Until Discontinu [...] Q6HPRN, Medical 25 mg Starting Branch on [facility] 07/21/22 at 1534, Until Discontinu ed, Routine, Itching diphenhydrA 2022-0 Yes 25mg 25 mg, Univ ers MINE 5-25 Oral, ity of (BENADRYL) 20:34: Q6HPRN, [place] tablet 25 05 Starting Medica l mg on [facility] 07/21/22 at 1534, Until Discontinu ed, Routine, Sleep, Itching ondansetron 0 Yes 4mg 4 mg, Slow Univers (ZOFRAN 5-25 IV Push, ity of (PF)) 20:34: Q8HPRN, [place] injection 4 05 Starting Medi lottie mg on [facility] 07/21/22 at 1534, Until Discontinu ed, Routine, Nausea and Vomiting (N/V) bisacodyL 0 Yes 10mg 10 mg, Univer s (DULCOLAX) 5-25 Rectal, ity of suppository 20:34: QDAILYPRN, [place] 10 mg 05 Starting Medical on [facility] 07/21/22 at 1534, Until Discontinu ed, Routine, Constipati on simethicone Yes 160mg 160 mg, Un odilon (GAS RELIEF 5-25 Oral, ity of (SIMETHICON 20:34: PC+HSPRN, [place] E)) 05 Starting Medical chewable on [facility] tablet 160 07/21/22 at mg 1534, Until Discontinu ed, Routine, Gas docusate 2022-0 Yes 200mg 200 mg, Unive rs (COLACE) 5-25 Oral, ity of capsule 200 20:34: QDAILYPRN, [place] mg 05 Starting Medical on [facility] 07/21/22 at 1534, Until Discontinu ed, Routine, Constipati on magnesium 2022-0 Yes 30mL 30 mL, Univer s hydroxide 5-25 Oral, ity of (MILK OF 20:34: QDAILYPRN, [place] MAGNESIA) 05 Starting Medica l 400 mg/5 mL on [facility] suspension 5/25/23 at 30 mL 1534, Until Discontinu ed, Routine, Constipati on lactated 2022- No 1000mL at 125 Univ ers ringers IV 5 05-26 mL/hr, ity of infusion 20:34: 00:14 1,000 mL, [place] 1,000 mL 05 :00 IV Medical Infusion, Branch PRN, 1 dose, Starting on [place] 07/21/22 at 1534, Until Discontinu ed, Routine ceFAZolin No 2000mg 2,000 mg, Univers (ANCEF) 07-21-25 [...] terbutaline No .25mg 0.25 mg, Univers (BRETHINE) 07-21 05-25 Subcutaneo it y of injection 16:37: 20:41 [...] 500mL at 999 Unive rs ringers IV 5-25 05-25 mL/hr, 500 it y of infusion 16:32: 20:41 mL, IV [place] 500 mL 59 :35 Infusion, Medical PRN - SEE Branch INSTRUCTIO NS, Starting on [place] 07/21/22 at 1132, Until [place] 07/21/22 at 1541, Routine D5W-LR IV 2022- No 1000mL at 1-125 U nivers infusion 5-25 05-25 mL/hr, IV ity o f 1,000 mL 16:32: 20:41 Infusion, [place] 59 :35 TITRATE, Medical Starting Branch on [place] 07/21/22 at 1132, Until [place] 07/21/22 at 1541, Routine Yes Take by Univer s 25/iron 5-25 mouth. ity of fum/folic/d 11:32: [place] betancur 19 Medical (-1 Branch ORAL) Nitrofurant Yes [id number] 100mg Take 1 Univers oin&Nit. 5-23 capsule by ity o f Macrocryst 00:00: mouth in [place] 100 mg 00 the Medical capsule morning Branch and 1 capsule in the evening. Nitrofurant Yes [id number] 100mg Take 1 Univers oin&Nit. 5-23 capsule by ity o f Macrocryst 00:00: mouth in [place] 100 mg 00 the Medical capsule morning Branch and 1 capsule in the evening. Nitrofurant Yes [id number] 100mg Take 1 Univers oin&Nit. 5-23 capsule by ity o f Macrocryst 00:00: mouth in [place] 100 mg 00 the Medical capsule morning Branch and 1 capsule in the evening. Nitrofurant 2022- No [id number] 100mg Take 1 Univers oin&Nit. 5-23 05-28 capsule by ity of Macrocryst 00:00: 00:00 mouth in [place] 100 mg 00 :00 the Medical capsule morning Branch and 1 capsule in the evening. Yes Take by Univer s 25/iron 5-21 mouth. ity of fum/folic/d 12:50: [place] betancur 57 Medical (-1 Branch ORAL) Yes Take by Univer s 25/iron 5-21 mouth. ity of fum/folic/d 12:50: [place] betancur 57 Medical (-1 Branch ORAL) Yes Take by Univer s 25/iron 5-15 mouth. ity of fum/folic/d 03:19: [facility] 16 Medical (-1 Branch ORAL) Yes Take by Univer s 25/iron 5-15 mouth. ity of fum/folic/d 03:19: [place] [address] Medical (-1 Branch ORAL) Yes Take by Univer s 25/iron 5-15 mouth. ity of fum/folic/d 03:19: [facility] 16 Medical (-1 Branch ORAL) terbutaline 2022- No .25mg 0.25 mg, Univers (BRETHINE) 5-10 05-10 Subcutaneo it y of injection 08:45: 07:59 [place], ONCE, [place] 0.25 mg 00 :00 1 dose, On Medica l Wed Branch 07/06/22 at 0345, Routine NaCl 0.9% 2022- No 1000mL at 999 Uni vers (NS) bolus 5-10 05-10 mL/hr, ity of infusion 06:30: 06:30 1,000 mL, [place] 1,000 mL 00 :27 IV Medical Infusion, Branch ONCE, 1 dose, On Mon07/06/22 at 0130, STAT Yes Take by Univer s 25/iron 5-10 mouth. ity of fum/folic/d 05:26: [place] [address] Medical (-1 Branch ORAL) Yes Take by Univer s 25/iron 5-10 mouth. ity of fum/folic/d 05:26: [place] [address] Medical (-1 Branch ORAL) Yes Take by Unive rs 25/iron 5-10 mouth. ity of fum/folic/d 05:26: [place] [address] Medical (-1 Branch ORAL) metroNIDAZO 2022- No [id number] 500mg Take 1 Univers LE 500 mg 2-16 -24 tablet by ity of tablet 00:00: 05:59 mouth in [place] 00 :00 the Medical morning Branch and 1 tablet in the evening. Do all this for 7 days. metroNIDAZO 2022- No [id number] 500mg Take 1 Univers LE 500 mg 2-16 -24 tablet by ity of tablet 00:00: 05:59 mouth in [place] 00 :00 the Medical morning Branch and 1 tablet in the evening. Do all this for 7 days. metroNIDAZO 2023-0 2023- No [id number] 500mg Take 1 Univers LE 500 mg 04-14-24 tablet by ity of tablet 00:00: 05:59 mouth in [place] 00 :00 the Medical morning Branch and 1 tablet in the evening. Do all this for 7 days. metroNIDAZO 2023-0 2023- No [id number] 500mg Take 1 Univers LE 500 mg 04-14-24 tablet by ity of tablet 00:00: 05:59 mouth in [place] 00 :00 the Medical morning Branch and 1 tablet in the evening. Do all this for 7 days. metroNIDAZO 2023-0 2023- No [id number] 500mg Take 1 Univers LE 500 mg 04-14 tablet by ity of tablet 00:00: 05:59 mouth in [place] 00 :00 the Medical morning Branch and 1 tablet in the evening. Do all this for 7 days. hydroxyprog 2023-0 2023- No [id number] 275mg Univers esterone(PF 03-31 ity of ) (KATHLEEN 06:00: 04:59 [place] AUTO-INJECT 00 :00 Medical OR) 275 Branch mg/1.1 mL injection 275 mg hydroxyprog 2023-0 3- No [id number] 275mg Univers esterone(PF 03-31 ity of ) (KATHLEEN 06:00: 04:59 [place] AUTO-INJECT 00 :00 Medical OR) 275 Branch mg/1.1 mL injection 275 mg hydroxyprog 2023-0 3- No [id number] 275mg 275 mg, Univers esterone(PF 03-31 Subcutaneo i ty of ) (KATHLEEN 06:00: 04:59 , [place] AUTO-INJECT 00 :00 QWEEKLY, [facility] OR) 275 16 doses, Branch mg/1.1 mL First dose injection on [place] 275 mg 03/31/22 at 0000, Last dose on [place] 07/14/22 at 0000, Routine hydroxyprog 2023-0 3- No [id number] 275mg Univers esterone(PF 03-31 ity of ) (KATHLEEN 06:00: 04:59 [place] AUTO-INJECT 00 :00 Medical OR) 275 Branch mg/1.1 mL injection 275 mg hydroxyprog 2023-0 2023- No [id number] 275mg 275 mg, [facility] esterone(PF 03-31 Subcutaneo i ty of ) (KATHLEEN :: 04:59 , [place] AUTO-INJECT 00 :00 QWEEKLY, [facility] lottie OR) 275 16 doses, Branch mg/1.1 mL First dose injection on Alissa 275 mg 03/31/22 at 0000, Last dose on Alissa 07/14/22 at 0000, Routine hydroxyprog 2023-0 2023- No [id number] 275mg [facility] esterone(PF 03-31 ity of ) (KATHLEEN :: :59 [place] AUTO-INJECT 00 :00 Medical OR) 275 Branch mg/1.1 mL injection 275 mg hydroxyprog 2023-0 2023- No [id number] 275mg [facility] esterone(PF 03-31 ity of ) (KATHLEEN :: :59 [place] AUTO-INJECT 00 :00 Medical OR) 275 Branch mg/1.1 mL injection 275 mg hydroxyprog 2023-0 2023- No [id number] 275mg [facility] esterone(PF 03-31 ity of ) (KATHLEEN :: :59 [place] AUTO-INJECT 00 :00 Medical OR) 275 Branch mg/1.1 mL injection 275 mg hydroxyprog 2023-0 2023- No [id number] 275mg [facility] ester[facility](PF 03-31 ity of ) (KATHLEEN :: :59 [place] AUTO-INJECT 00 :00 Medical OR) 275 Branch mg/1.1 mL injection 275 mg hydroxyprog 2023-0 2023- No [id number] 275mg [facility] esterone(PF 03-31 ity of ) (KATHLEEN :: :59 [place] AUTO-INJECT 00 :00 Medical OR) 275 Branch mg/1.1 mL injection 275 mg hydroxyprog 2023-0 2023- No [id number] 275mg 275 mg, [facility] esterone(PF 03-31 Subcutaneo i ty of ) (KATHLEEN 06:: 04:59 us, [place] AUTO-INJECT 00 :00 QWEEKLY, Medi lottie OR) 275 16 doses, Branch mg/1.1 mL First dose injection on Alissa 275 mg 03/31/22 at 0000, Last dose on [place]issa 07/14/22 at 0000, Routine hydroxyprog 2023-0 2023- No [id number] 275mg [facility] esterone(PF 03-31 ity of ) (KATHLEEN 06:00: 04:59 [place] AUTO-INJECT 00 :00 Medical OR) 275 Branch mg/1.1 mL injection 275 mg hydroxyprog 2023-0 2023- No [id number] 275mg [facility] ester[facility](PF 03-31 ity of ) (KATHLEEN 06:00: 04:59 [place] AUTO-INJECT 00 :00 Medical OR) 275 Branch mg/1.1 mL injection 275 mg hydroxyprog 2023-0 2023- No [id number] 275mg [facility] ester[facility](PF 03-31 ity of ) (KATHLEEN 06:00: 04:59 [place] AUTO-INJECT 00 :00 Medical OR) 275 Branch mg/1.1 mL injection 275 mg hydroxyprog 2023-0 2023- No [id number] 275mg 275 mg, [facility] esterone(PF 03-31 Subcutaneo i ty of ) (KATHLEEN 06:00: 04:59 , [place] AUTO-INJECT 00 :00 QWEEKLY, [facility] OR) 275 16 doses, Branch mg/1.1 mL First dose injection on Alissa 275 mg 03/31/22 at 0000, Last dose on Alissa 07/14/22 at 0000, Routine hydroxyprog 2023-0 2023- No [id number] 275mg [facility] ester[facility](PF 03-31 ity of ) (KATHLEEN 06:00: 04:59 [place] AUTO-INJECT 00 :00 Medical OR) 275 Branch mg/1.1 mL injection 275 mg hydroxyprog 2023-0 2023- No [id number] 275mg 275 mg, [facility] esterone(PF 03-31 Subcutaneo i ty of ) (KATHLEEN 06:00: 04:59 us, [place] AUTO-INJECT 00 :00 QWEEKLY, [facility] OR) 275 16 doses, Branch mg/1.1 mL First dose injection on Alissa 275 mg 03/31/22 at 0000, Last dose on [place]issa 07/14/22 at 0000, Routine hydroxyprog 2023-0 2023- No [id number] 275mg [facility] ester[facility](PF 03-31 ity of ) (KATHLEEN 06:00: 04:59 [place] AUTO-INJECT 00 :00 Medical OR) 275 Branch mg/1.1 mL injection 275 mg hydroxyprog 2023-0 2023- No [id number] 275mg 275 mg, [facility] esterone(PF 03-31 Subcutaneo i ty of ) (KATHLEEN 06:00: 04:59 us, [place] AUTO-INJECT 00 :00 QWEEKLY, [facility] OR) 275 16 doses, Branch mg/1.1 mL First dose injection on [place] 275 mg 03/31/22 at 0000, Last dose on [place] 07/14/22 at 0000, Routine hydroxyprog 2023-0 2023- No [id number] 275mg [facility] esterone(PF 03-31 ity of ) (KATHLEEN 06:00: 04:59 [place] AUTO-INJECT 00 :00 Medical OR) 275 Branch mg/1.1 mL injection 275 mg hydroxyprog 2023-0 2023- No [id number] 275mg 275 mg, [facility] esterone(PF 03-31 Subcutaneo i ty of ) (KATHLEEN 06:00: 04:59 us, [place] AUTO-INJECT 00 :00 QWEEKLY, [facility] OR) 275 16 doses, Branch mg/1.1 mL First dose injection on [place]issa 275 mg 03/31/22 at 0000, Last dose on [place] 07/14/22 at 0000, Routine hydroxyprog 2023-0 2023- No [id number] 275mg [facility] esterone(PF 03-31 ity of ) (KATHLEEN 06:00: 04:59 [place] AUTO-INJECT 00 :00 Medical OR) 275 Branch mg/1.1 mL injection 275 mg hydroxyprog 2023-0 2023- No [id number] 275mg [facility] esterone(PF 03-31 ity of ) (KATHLEEN 06:00: 04:59 [place] AUTO-INJECT 00 :00 Medical OR) 275 Branch mg/1.1 mL injection 275 mg hydroxyprog 2023-0 2023- No [id number] 275mg 275 mg, [facility] esterone(PF 03-31 Subcutaneo i ty of ) (KATHLEEN 06:00: 04:59 us, [place] AUTO-INJECT 00 :00 QWEEKLY, [facility] OR) 275 16 doses, Branch mg/1.1 mL First dose injection on Alissa 275 mg 03/31/22 at 0000, Last dose on [place] 07/14/22 at 0000, Routine hydroxyprog 2023-0 2023- No [id number] 275mg [facility] ester[facility](PF 03-31 ity of ) (KATHLEEN 06:00: 04:59 [place] AUTO-INJECT 00 :00 Medical OR) 275 Branch mg/1.1 mL injection 275 mg hydroxyprog 2023-0 2023- No [id number] 275mg 275 mg, [facility] esterone(PF 03-31 Subcutaneo i ty of ) (KATHLEEN 06:00: 04:59 us, [place] AUTO-INJECT 00 :00 QWEEKLY, [facility] OR) 275 16 doses, Branch mg/1.1 mL First dose injection on Alissa 275 mg 03/31/22 at 0000, Last dose on [place] 07/14/22 at 0000, Routine hydroxyprog 2023-0 2023- No [id number] 275mg [facility] ester[facility](PF 03-31 ity of ) (KATHLEEN 06:00: 04:59 [place] AUTO-INJECT 00 :00 Medical OR) 275 Branch mg/1.1 mL injection 275 mg hydroxyprog 2023-0 2023- No [id number] 275mg 275 mg, [facility] esterone(PF 03-31 Subcutaneo i ty of ) (KATHLEEN 06:00: 04:59 us, [place] AUTO-INJECT 00 :00 QWEEKLY, [facility] OR) 275 16 doses, Branch mg/1.1 mL First dose injection on Alissa 275 mg 03/31/22 at 0000, Last dose on [place] 07/14/22 at 0000, Routine hydroxyprog 2023-0 2023- No [id number] 275mg [facility] esterone(PF 03-31 ity of ) (KATHLEEN 06:00: 04:59 [place] AUTO-INJECT 00 :00 Medical OR) 275 Branch mg/1.1 mL injection 275 mg hydroxyprog 2023-0 2023- No [id number] 275mg 275 mg, [facility] esterone(PF 2-02 05-25 Subcutaneo i ty of ) (KATHLEEN 06:00: 04:59 us, [place] AUTO-INJECT 00 :00 QWEEKLY, [facility] OR) 275 16 doses, Branch mg/1.1 mL First dose injection on Alissa 275 mg 03/31/22 at 0000, Last dose on [place] 07/14/22 at 0000, Routine hydroxyprog 2023-0 2023- No [id number] 275mg [facility] ester[facility](PF 03-31 ity of ) (KATHLEEN 06:00: 04:59 [place] AUTO-INJECT 00 :00 Medical OR) 275 Branch mg/1.1 mL injection 275 mg hydroxyprog 2023-0 2023- No [id number] 275mg 275 mg, [facility] esterone(PF 03-31 Subcutaneo i ty of ) (KATHLEEN 06:00: 04:59 us, [place] AUTO-INJECT 00 :00 QWEEKLY, [facility] OR) 275 16 doses, Branch mg/1.1 mL First dose injection on Alissa 275 mg 03/31/22 at 0000, Last dose on [place] 07/14/22 at 0000, Routine hydroxyprog 2023-0 2023- No [id number] 275mg [facility] ester[facility](PF 03-31 ity of ) (KATHLEEN 06:00: 04:59 [place] AUTO-INJECT 00 :00 Medical OR) 275 Branch mg/1.1 mL injection 275 mg hydroxyprog 2023-0 2023- No [id number] 275mg 275 mg, [facility] esterone(PF 03-31 Subcutaneo i ty of ) (KATHLEEN 06:00: 04:59 us, [place] AUTO-INJECT 00 :00 QWEEKLY, [facility] OR) 275 16 doses, Branch mg/1.1 mL First dose injection on Alissa 275 mg 03/31/22 at 0000, Last dose on [place] 07/14/22 at 0000, Routine hydroxyprog 2023-0 2023- No [id number] 275mg [facility] ester[facility](PF 03-31 ity of ) (KATHLEEN 06:00: 04:59 [place] AUTO-INJECT 00 :00 Medical OR) 275 Branch mg/1.1 mL injection 275 mg hydroxyprog 2023-0 2023- No [id number] 275mg [facility] ester[facility](PF 03-31 ity of ) (KATHLEEN 06:00: 04:59 [place] AUTO-INJECT 00 :00 Medical OR) 275 Branch mg/1.1 mL injection 275 mg hydroxyprog 2023-0 2023- No [id number] 275mg [facility] ester[facility](PF 03-31 ity of ) (KATHLEEN 06:00: 04:59 [place] AUTO-INJECT 00 :00 Medical OR) 275 Branch mg/1.1 mL injection 275 mg hydroxyprog 2023-0 2023- No [id number] 275mg [facility] ester[facility](PF 03-31 ity of ) (KATHLEEN 06:00: 04:59 [place] AUTO-INJECT 00 :00 Medical OR) 275 Branch mg/1.1 mL injection 275 mg hydroxyprog 2023-0 2023- No [id number] 275mg [facility] ester[facility](PF 03-31 ity of ) (KATHLEEN 06:00: 04:59 [place] AUTO-INJECT 00 :00 Medical OR) 275 Branch mg/1.1 mL injection 275 mg hydroxyprog 2023-0 2023- No [id number] 275mg [facility] ester[facility](PF 03-31 ity of ) (KATHLEEN 06:00: 04:59 [place] AUTO-INJECT 00 :00 Medical OR) 275 Branch mg/1.1 mL injection 275 mg hydroxyprog 2023-0 2023- No [id number] 275mg [facility] ester[facility](PF 03-31 ity of ) (KATHLEEN 06:00: 04:59 [place] AUTO-INJECT 00 :00 Medical OR) 275 Branch mg/1.1 mL injection 275 mg hydroxyprog 2023-0 2023- No [id number] 275mg [facility] ester[facility](PF 03-31 ity of ) (KATHLEEN 06:00: 04:59 [place] AUTO-INJECT 00 :00 Medical OR) 275 Branch mg/1.1 mL injection 275 mg hydroxyprog 2023-0 2023- No [id number] 275mg [facility] esterone(PF 03-31 ity of ) (KATHLEEN 06:00: 04:59 [place] AUTO-INJECT 00 :00 Medical OR) 275 Branch mg/1.1 mL injection 275 mg hydroxyprog 2023-0 2023- No [id number] 275mg [facility] esterone(PF 2-02 05-25 ity of ) (KATHLEEN 06:00: 04:59 [place] AUTO-INJECT 00 :00 Medical OR) 275 Branch mg/1.1 mL injection 275 mg hydroxyprog 2023-0 2023- No [id number] 275mg [facility] esterone(PF 207-21 ity of ) (KATHLEEN 06:00: 04:59 [place] AUTO-INJECT 00 :00 Medical OR) 275 Branch mg/1.1 mL injection 275 mg hydroxyprog 2023-0 2023- No [id number] 275mg [facility] esterone(PF 03-24 ity of ) (KATHLEEN 16:45: 15:59 [place] AUTO-INJECT 00 :00 Medical OR) 275 Branch mg/1.1 mL injection 275 mg hydroxyprog 2023-0 2023- No [id number] 275mg 275 mg, [facility] esterone(PF 03-24 Subcutaneo i ty of ) (KATHLEEN 16:45: 15:59 [place] AUTO-INJECT [...] weekly. Medical injection Branch hydroxyprog 2023-0 Yes [id number] 275mg inject 1.1 [facility] esterone,PF 1-09 mL under ity of , 275 00:00: the skin [place] mg/1.1 mL 00 weekly. Medical injection Branch hydroxyprog 2023-0 Yes 275mg inject 1.1 [facility] esterone,PF 1-09 mL under ity of , 275 00:00: the skin [place] mg/1.1 mL 00 weekly. Medical injection Branch hydroxyprog 2023-0 Yes [id number] 275mg inject 1.1 [facility] esterone,PF 1-09 mL under ity of , 275 00:00: the skin [place] mg/1.1 mL 00 weekly. Medical injection Branch hydroxyprog 2023-0 Yes 275mg inject 1.1 [facility] ester[facility],PF 1-09 mL under ity of , 275 00:00: the skin [place] mg/1.1 mL 00 weekly. Medical injection Branch hydroxyprog 2023-0 Yes [id number] 275mg inject 1.1 [facility] esterone,PF 1-09 mL under ity of , 275 00:00: the skin [place] mg/1.1 mL 00 weekly. Medical injection Branch hydroxyprog 2023-0 Yes 275mg inject 1.1 [facility] esterone,PF 1-09 mL under ity of , 275 00:00: the skin [place] mg/1.1 mL 00 weekly. Medical injection Branch hydroxyprog 2023-0 Yes [id number] 275mg inject 1.1 [facility] esterone,PF 1-09 mL under ity of , 275 00:00: the skin [place] mg/1.1 mL 00 weekly. Medical injection Branch hydroxyprog 2023-0 Yes 275mg inject 1.1 [facility] esterone,PF 1-09 mL under ity of , 275 00:00: the skin [place] mg/1.1 mL 00 weekly. Medical injection Branch hydroxyprog 2023-0 Yes [id number] 275mg inject 1.1 [facility] esterone,PF 1-09 mL under ity of , 275 00:00: the skin [place] mg/1.1 mL 00 weekly. Medical injection Branch hydroxyprog 2023-0 Yes 275mg inject 1.1 [facility] esterone,PF 1-09 mL under ity of , 275 00:00: the skin [place] mg/1.1 mL 00 weekly. Medical injection Branch hydroxyprog 2023-0 Yes [id number] 275mg inject 1.1 [facility] esterone,PF 1-09 mL under ity of , 275 00:00: the skin [place] mg/1.1 mL 00 weekly. Medical injection Branch hydroxyprog 2023-0 Yes 275mg inject 1.1 [facility] esterone,PF 1-09 mL under ity of , 275 00:00: the skin [place] mg/1.1 mL 00 weekly. Medical injection Branch hydroxyprog 2023-0 Yes [id number] 275mg inject 1.1 [facility] esterone,PF 1-09 mL under ity of , 275 00:00: the skin [place] mg/1.1 mL 00 weekly. Medical injection Branch hydroxyprog 2023-0 Yes 275mg inject 1.1 [facility] esterone,PF 1-09 mL under ity of , 275 00:00: the skin [place] mg/1.1 mL 00 weekly. Medical injection Branch hydroxyprog 2023-0 Yes [id number] 275mg inject 1.1 [facility] esterone,PF 1-09 mL under ity of , 275 00:00: the skin [place] mg/1.1 mL 00 weekly. Medical injection Branch hydroxyprog 2023-0 Yes 275mg inject 1.1 [facility] esterone,PF 1-09 mL under ity of , 275 00:00: the skin [place] mg/1.1 mL 00 weekly. Medical injection Branch hydroxyprog 2023-0 Yes [id number] 275mg inject 1.1 [facility] esterone,PF 1-09 mL under ity of , 275 00:00: the skin [place] mg/1.1 mL 00 weekly. Medical injection Branch hydroxyprog 2023-0 Yes 275mg inject 1.1 [facility] esterone,PF 1-09 mL under ity of , 275 00:00: the skin [place] mg/1.1 mL 00 weekly. Medical injection Branch hydroxyprog 2023-0 Yes [id number] 275mg inject 1.1 [facility] esterone,PF 1-09 mL under ity of , 275 00:00: the skin [place] mg/1.1 mL 00 weekly. Medical injection Branch hydroxyprog 2023-0 Yes 275mg inject 1.1 [facility] esterone,PF 1-09 mL under ity of , 275 00:00: the skin [place] mg/1.1 mL 00 weekly. Medical injection Branch hydroxyprog 2023-0 Yes [id number] 275mg inject 1.1 [facility] esterone,PF 1-09 mL under ity of , 275 00:00: the skin [place] mg/1.1 mL 00 weekly. Medical injection Branch hydroxyprog 2023-0 Yes 275mg inject 1.1 [facility] esterone,PF 1-09 mL under ity of , 275 00:00: the skin [place] mg/1.1 mL 00 weekly. Medical injection Branch hydroxyprog 2023-0 Yes [id number] 275mg inject 1.1 [facility] esterone,PF 1-09 mL under ity of , 275 00:00: the skin [place] mg/1.1 mL 00 weekly. Medical injection Branch hydroxyprog 2023-0 Yes 275mg inject 1.1 [facility] esterone,PF 1-09 mL under ity of , 275 00:00: the skin [place] mg/1.1 mL 00 weekly. Medical injection Branch hydroxyprog 2023-0 Yes [id number] 275mg inject 1.1 [facility] esterone,PF 1-09 mL under ity of , 275 00:00: the skin [place] mg/1.1 mL 00 weekly. Medical injection Branch hydroxyprog 2023-0 Yes 275mg inject 1.1 [facility] esterone,PF 1-09 mL under ity of , 275 00:00: the skin [place] mg/1.1 mL 00 weekly. Medical injection Branch hydroxyprog 2023-0 Yes [id number] 275mg inject 1.1 [facility] esterone,PF 1-09 mL under ity of , 275 00:00: the skin [place] mg/1.1 mL 00 weekly. Medical injection Branch hydroxyprog 2023-0 Yes 275mg inject 1.1 [facility] esterone,PF 1-09 mL under ity of , 275 00:00: the skin [place] mg/1.1 mL 00 weekly. Medical injection Branch hydroxyprog 2023-0 Yes [id number] 275mg inject 1.1 [facility] esterone,PF 1-09 mL under ity of , 275 00:00: the skin [place] mg/1.1 mL 00 weekly. Medical injection Branch hydroxyprog 2023-0 Yes 275mg inject 1.1 [facility] esterone,PF 1-09 mL under ity of , 275 00:00: the skin [place] mg/1.1 mL 00 weekly. Medical injection Branch hydroxyprog 2023-0 Yes [id number] 275mg inject 1.1 [facility] esterone,PF 1-09 mL under ity of , 275 00:00: the skin [place] mg/1.1 mL 00 weekly. Medical injection Branch hydroxyprog 2023-0 Yes 275mg inject 1.1 [facility] esterone,PF 1-09 mL under ity of , 275 00:00: the skin [place] mg/1.1 mL 00 weekly. Medical injection Branch hydroxyprog 2023-0 Yes [id number] 275mg inject 1.1 [facility] esterone,PF 1-09 mL under ity of , 275 00:00: the skin [place] mg/1.1 mL 00 weekly. Medical injection Branch hydroxyprog 2023-0 Yes 275mg inject 1.1 [facility] esterone,PF 1-09 mL under ity of , 275 00:00: the skin [place] mg/1.1 mL 00 weekly. Medical injection Branch hydroxyprog 2023-0 Yes [id number] 275mg inject 1.1 [facility] esterone,PF 1-09 mL under ity of , 275 00:00: the skin [place] mg/1.1 mL 00 weekly. Medical injection Branch hydroxyprog 2023-0 Yes 275mg inject 1.1 [facility] esterone,PF 1-09 mL under ity of , 275 00:00: the skin [place] mg/1.1 mL 00 weekly. Medical injection Branch hydroxyprog 2023-0 Yes [id number] 275mg inject 1.1 [facility] esterone,PF 1-09 mL under ity of , 275 00:00: the skin [place] mg/1.1 mL 00 weekly. Medical injection Branch hydroxyprog 2023-0 Yes 275mg inject 1.1 [facility] esterone,PF 1-09 mL under ity of , 275 00:00: the skin [place] mg/1.1 mL 00 weekly. Medical injection Branch hydroxyprog 2023-0 Yes [id number] 275mg inject 1.1 [facility] esterone,PF 1-09 mL under ity of , 275 00:00: the skin [place] mg/1.1 mL 00 weekly. Medical injection Branch hydroxyprog 2023-0 Yes 275mg inject 1.1 [facility] esterone,PF 1-09 mL under ity of , 275 00:00: the skin [place] mg/1.1 mL 00 weekly. Medical injection Branch hydroxyprog 2023-0 Yes [id number] 275mg inject 1.1 [facility] esterone,PF 1-09 mL under ity of , 275 00:00: the skin [place] mg/1.1 mL 00 weekly. Medical injection Branch hydroxyprog 2023-0 Yes 275mg inject 1.1 [facility] esterone,PF 1-09 mL under ity of , 275 00:00: the skin [place] mg/1.1 mL 00 weekly. Medical injection Branch hydroxyprog 2023-0 Yes [id number] 275mg inject 1.1 [facility] esterone,PF 1-09 mL under ity of , 275 00:00: the skin [place] mg/1.1 mL 00 weekly. Medical injection Branch hydroxyprog 2023-0 Yes 275mg inject 1.1 [facility] esterone,PF 1-09 mL under ity of , 275 00:00: the skin [place] mg/1.1 mL 00 weekly. Medical injection Branch hydroxyprog 2023-0 Yes [id number] 275mg inject 1.1 [facility] esterone,PF 1-09 mL under ity of , 275 00:00: the skin [place] mg/1.1 mL 00 weekly. Medical injection Branch hydroxyprog 2023-0 Yes 275mg inject 1.1 [facility] esterone,PF 1-09 mL under ity of , 275 00:00: the skin [place] mg/1.1 mL 00 weekly. Medical injection Branch hydroxyprog 2023-0 Yes [id number] 275mg inject 1.1 [facility] esterone,PF 1-09 mL under ity of , 275 00:00: the skin [place] mg/1.1 mL 00 weekly. Medical injection Branch hydroxyprog 2023-0 Yes 275mg inject 1.1 [facility] esterone,PF 1-09 mL under ity of , 275 00:00: the skin [place] mg/1.1 mL 00 weekly. Medical injection Branch hydroxyprog 2023-0 Yes [id number] 275mg inject 1.1 [facility] esterone,PF 1-09 mL under ity of , 275 00:00: the skin [place] mg/1.1 mL 00 weekly. Medical injection Branch hydroxyprog 2023-0 Yes 275mg inject 1.1 [facility] esterone,PF 1-09 mL under ity of , 275 00:00: the skin [place] mg/1.1 mL 00 weekly. Medical injection Branch hydroxyprog 2023-0 Yes [id number] 275mg inject 1.1 [facility] esterone,PF 1-09 mL under ity of , 275 00:00: the skin [place] mg/1.1 mL 00 weekly. Medical injection Branch hydroxyprog 2023-0 Yes 275mg inject 1.1 [facility] esterone,PF 1-09 mL under ity of , 275 00:00: the skin [place] mg/1.1 mL 00 weekly. Medical injection Branch hydroxyprog 2023-0 Yes [id number] 275mg inject 1.1 [facility] esterone,PF 1-09 mL under ity of , 275 00:00: the skin [place] mg/1.1 mL 00 weekly. Medical injection Branch hydroxyprog 2023-0 Yes 275mg inject 1.1 [facility] esterone,PF 1-09 mL under ity of , 275 00:00: the skin [place] mg/1.1 mL 00 weekly. Medical injection Branch hydroxyprog 2023-0 Yes [id number] 275mg inject 1.1 [facility] esterone,PF 1-09 mL under ity of , 275 00:00: the skin [place] mg/1.1 mL 00 weekly. Medical injection Branch hydroxyprog 2023-0 Yes 275mg inject 1.1 [facility] esterone,PF 1-09 mL under ity of , 275 00:00: the skin [place] mg/1.1 mL 00 weekly. Medical injection Branch hydroxyprog 2023-0 Yes [id number] 275mg inject 1.1 [facility] esterone,PF 1-09 mL under ity of , 275 00:00: the skin [place] mg/1.1 mL 00 weekly. Medical injection Branch hydroxyprog 2023-0 Yes 275mg inject 1.1 [facility] esterone,PF 1-09 mL under ity of , 275 00:00: the skin [place] mg/1.1 mL 00 weekly. Medical injection Branch hydroxyprog 2023-0 Yes [id number] 275mg inject 1.1 [facility] esterone,PF 1-09 mL under ity of , 275 00:00: the skin [place] mg/1.1 mL 00 weekly. Medical injection Branch hydroxyprog 2023-0 Yes 275mg inject 1.1 [facility] esterone,PF 1-09 mL under ity of , 275 00:00: the skin [place] mg/1.1 mL 00 weekly. Medical injection Branch hydroxyprog 2023-0 Yes [id number] 275mg inject 1.1 [facility] esterone,PF 1-09 mL under ity of , 275 00:00: the skin [place] mg/1.1 mL 00 weekly. Medical injection Branch hydroxyprog 2023-0 Yes 275mg inject 1.1 [facility] esterone,PF 1-09 mL under ity of , 275 00:00: the skin [place] mg/1.1 mL 00 weekly. Medical injection Branch hydroxyprog 2023-0 Yes [id number] 275mg inject 1.1 [facility] esterone,PF 1-09 mL under ity of , 275 00:00: the skin [place] mg/1.1 mL 00 weekly. Medical injection Branch hydroxyprog 2023-0 Yes 275mg inject 1.1 [facility] esterone,PF 1-09 mL under ity of , 275 00:00: the skin [place] mg/1.1 mL 00 weekly. Medical injection Branch hydroxyprog 2023-0 Yes [id number] 275mg inject 1.1 [facility] esterone,PF 1-09 mL under ity of , 275 00:00: the skin [place] mg/1.1 mL 00 weekly. Medical injection Branch hydroxyprog 2023-0 Yes 275mg inject 1.1 [facility] esterone,PF 1-09 mL under ity of , 275 00:00: the skin [place] mg/1.1 mL 00 weekly. Medical injection Branch hydroxyprog 2023-0 Yes [id number] 275mg inject 1.1 [facility] esterone,PF 1-09 mL under ity of , 275 00:00: the skin [place] mg/1.1 mL 00 weekly. Medical injection Branch hydroxyprog 2023-0 Yes 275mg inject 1.1 [facility] esterone,PF 1-09 mL under ity of , 275 00:00: the skin [place] mg/1.1 mL 00 weekly. Medical injection Branch hydroxyprog 2023-0 Yes [id number] 275mg inject 1.1 [facility] esterone,PF 1-09 mL under ity of , 275 00:00: the skin [place] mg/1.1 mL 00 weekly. Medical injection Branch hydroxyprog 2023-0 Yes 275mg inject 1.1 [facility] esterone,PF 1-09 mL under ity of , 275 00:00: the skin [place] mg/1.1 mL 00 weekly. Medical injection Branch hydroxyprog 2023-0 Yes [id number] 275mg inject 1.1 [facility] esterone,PF 1-09 mL under ity of , 275 00:00: the skin [place] mg/1.1 mL 00 weekly. Medical injection Branch hydroxyprog 2023-0 2023- No 275mg inject 1.1 [facility] esterone,PF 1-09 05-25 mL under ity of , 275 00:00: 00:00 the skin [place] mg/1.1 mL 00 :00 weekly. Medical injection Branch hydroxyprog 2023-0 2023- No [id number] 275mg inject 1.1 [facility] esterone,PF 1-09 05-25 mL under ity of , 275 00:00: 00:00 the skin [place] mg/1.1 mL 00 :00 weekly. Medical injection Branch hydroxyprog 2023-0 2023- No 275mg inject 1.1 [facility] esterone,PF 1-09 05-25 mL under ity of , 275 00:00: 00:00 the skin [place] mg/1.1 mL 00 :00 weekly. Medical injection Branch hydroxyprog 3- No [id number] 275mg [facility] 1.1 [facility] mL under ity of , 275 00:00: 00:00 the skin [place] mg/1.1 mL 00 :00 weekly. Medical injection Branch hydroxyprog 2021-02 Yes [id number] 250mg 1 mL by [facility] o f caproate, 00:00: lar route Jamal as ppres, 250 00 weekly. Medica l mg/mL Branch injection hydroxyprog 2021-02- No [id number] 250mg 1 mL by [facility]- Intr[facility] ity of caproate, 00:00: 00:00 lar [...] 00 Medical (1 mL) Branch injection HYDROXYprog 2021-02- No Unive rs est,PF,,pre 2-16 05-25 ity of g presv, 00:00: 00:00 [place] 250 mg/mL 00 :00 Medical (1 mL) Branch injection HYDROXYprog 2021-02- No Unive rs est,PF,,pre 2-16 05-25 ity of g presv, 00:00: 00:00 [place] 250 mg/mL 00 :00 Medical (1 mL) Branch injection hydroxyprog 2021-02 Yes [id number] 250mg 1 mL by [facility] esterone 2-15 Intramuscu ity o f 250 mg/mL 00:00: lar route [place] as injection 00 weekly. Medical Branch hydroxyprog 2021-02 Yes [id number] 250mg 1 mL by [facility] esterone 2-15 Intramuscu ity o f 250 mg/mL 00:00: lar route [place] injection 00 weekly. Medical Branch hydroxyprog 2021-02- No [id number] 250mg 1 mL by [facility] esterone 2-15 [...] 25/iron 0-13 mouth. ity of fum/folic/d 09:26: [place] [id number] Medical (-1 Branch ORAL) 2021-02 Yes Take by Univer s 25/iron 0-13 mouth. ity of fum/folic/d 09:26: [place] [id number] Medical (-1 Branch ORAL) 2021-02 Yes Take by Univer s 25/iron 0-13 mouth. ity of fum/folic/d 09:26: [place] [id number] Medical (-1 Branch ORAL) 2021-02 Yes Take by Univer s 25/iron 0-13 mouth. ity of fum/folic/d 09:26: [place] [id number] Medical (-1 Branch ORAL) 2021-02 Yes Take by Univer s 25/iron 0-13 mouth. ity of fum/folic/d 09:26: [place] [id number] Medical (-1 Branch ORAL) 2021-02 Yes Take by Univer s 25/iron 0-13 mouth. ity of fum/folic/d 09:26: [place] [id number] Medical (-1 Branch ORAL) 2021-02 Yes Take by Univer s 25/iron 0-13 mouth. ity of fum/folic/d 09:26: [place] [id number] Medical (-1 Branch ORAL) 2021-02 Yes Take by Univer s 25/iron 0-13 mouth. ity of fum/folic/d 09:26: [place] [id number] Medical (-1 Branch ORAL) 2021-02 Yes Take by Univer s 25/iron 0-13 mouth. ity of fum/folic/d 09:26: [place] [id number] Medical (-1 Branch ORAL) 2021-02 Yes Take by Univer s 25/iron 0-13 mouth. ity of fum/folic/d 09:26: [place] [id number] Medical (-1 Branch ORAL) 2021-02 Yes Take by Univer s 25/iron 0-13 mouth. ity of fum/folic/d 09:26: [place] [id number] Medical (-1 Branch ORAL) 2021-02 Yes Take by Univer s 25/iron 0-13 mouth. ity of fum/folic/d 09:26: [place] [id number] Medical (-1 Branch ORAL) 2021-02 Yes Take by Univer s 25/iron 0-13 mouth. ity of fum/folic/d 09:26: [place] [id number] Medical (-1 Branch ORAL) 2021-02 Yes Take by Univer s 25/iron 0-13 mouth. ity of fum/folic/d 09:26: [place] [id number] Medical (-1 Branch ORAL) 2021-02 Yes Take by Univer s 25/iron 0-13 mouth. ity of fum/folic/d 09:26: [place] [id number] Medical (-1 Branch ORAL) 2021-02 Yes Take by Univer s 25/iron 0-13 mouth. ity of fum/folic/d 09:26: [place] [id number] Medical (-1 Branch ORAL) 2021-02 Yes Take by Univer s 25/iron 0-13 mouth. ity of fum/folic/d 09:26: [place] [id number] Medical (-1 Branch ORAL) 2021-02 Yes Take by Univer s 25/iron 0-13 mouth. ity of fum/folic/d 09:26: [place] [id number] Medical (-1 Branch ORAL) 2021-02 Yes Take by Univer s 25/iron 0-13 mouth. ity of fum/folic/d 09:26: [place] [id number] Medical (-1 Branch ORAL) 2021-02 Yes Take by Univer s 25/iron 0-13 mouth. ity of fum/folic/d 09:26: [place] [id number] Medical (-1 Branch ORAL) 2021-02 Yes Take by Univer s 25/iron 0-13 mouth. ity of fum/folic/d 09:26: [place] [id number] Medical (-1 Branch ORAL) 2021-02 Yes Take by Univer s 25/iron 0-13 mouth. ity of fum/folic/d 09:26: [place] [id number] Medical (-1 Branch ORAL) 2021-02 Yes Take by Univer s 25/iron 0-13 mouth. ity of fum/folic/d 09:26: [place] [id number] Medical (-1 Branch ORAL) 2021-02 Yes Take by Univer s 25/iron 0-13 mouth. ity of fum/folic/d 09:26: [place] [id number] Medical (-1 Branch ORAL) 2021-02 Yes Take by Univer s 25/iron 0-13 mouth. ity of fum/folic/d 09:26: [facility] 35 Medical (-1 Branch ORAL) 2021-02 Yes Take by Univer s 25/iron 0-13 mouth. ity of fum/folic/d 09:26: [facility] 35 Medical (-1 Branch ORAL) 2021-02 Yes Take by Univer s 25/iron 0-13 mouth. ity of fum/folic/d 09:26: [facility] 35 Medical (-1 Branch ORAL) 2021-02 Yes Take by Univer s 25/iron 0-13 mouth. ity of fum/folic/d 09:26: [place] [id number] Medical (-1 Branch ORAL) 2021-02 Yes Take by Univer s 25/iron 0-13 mouth. ity of fum/folic/d 09:26: [place] [id number] Medical (-1 Branch ORAL) 2021-02 Yes Take by Univer s 25/iron 0-13 mouth. ity of fum/folic/d 09:26: [place] [id number] Medical (-1 Branch ORAL) 2021-02 Yes Take by Univer s 25/iron 0-13 mouth. ity of fum/folic/d 09:26: [place] [id number] Medical (-1 Branch ORAL) 2021-02 Yes Take by Univer s 25/iron 0-13 mouth. ity of fum/folic/d 09:26: [place] [id number] Medical (-1 Branch ORAL) 2021-02 Yes Take by Univer s 25/iron 0-13 mouth. ity of fum/folic/d 09:26: [facility] 35 Medical (-1 Branch ORAL) 2021-02 Yes Take by Univer s 25/iron 0-13 mouth. ity of fum/folic/d 09:26: [place] [id number] Medical (-1 Branch ORAL) 2021-02 Yes Take by Univer s 25/iron 0-13 mouth. ity of fum/folic/d 09:26: [facility] 35 Medical (-1 Branch ORAL) 2021-02 Yes Take by Univer s 25/iron 0-13 mouth. ity of fum/folic/d 09:26: [facility] 35 Medical (-1 Branch ORAL) 2021-02 Yes Take by Univer s 25/iron 0-13 mouth. ity of fum/folic/d 09:26: [facility] 35 Medical (-1 Branch ORAL) 2021-02 Yes Take by Univer s 25/iron 0-13 mouth. ity of fum/folic/d 09:26: [facility] 35 Medical (-1 Branch ORAL) 2021-02 Yes Take by Univer s 25/iron 0-13 mouth. ity of fum/folic/d 09:26: [facility] 35 Medical (-1 Branch ORAL) 2021-02 Yes Take by Univer s 25/iron 0-13 mouth. ity of fum/folic/d 09:26: [facility] 35 Medical (-1 Branch ORAL) 2021-02 Yes Take by Univer s 25/iron 0-13 mouth. ity of fum/folic/d 09:26: [facility] 35 Medical (-1 Branch ORAL) PROAIR HFA [...] on inhaler 00 Medical Branch PROAIR HFA 2022- No Univer s 90 8-30 05-27 ity of mcg/actuati 00:00: 00:00 [place] on inhaler 00 :00 Medical Branch norgestimat 0 Yes [id number] 1{tbl} Take 1 Univers e-ethinyl 8-16 tablet by ity o f estradioL [place]TRI-SPRINT 00 the Medical [facility]) morning. Branch 0.18/0.215/ 0.25 mg-35 mcg (28) tablet norgestimat 0 2022- No [id number] 1{tbl} Take 1 Univers e-ethinyl 8-16 10-13 tablet by ity of estradioL 00:00: 00:00 mouth in [place] (TRI-SPRINT 00 :00 the Medical [facility]) morning. Branch 0.18/0.215/ 0.25 mg-35 mcg (28) tablet norgestimat 2020-02 Yes [id number] 1{tbl} Take 1 Univers e-ethinyl 1-22 tablet by ity o f estradioL 00:00: mouth [place] (ORTHO 00 daily. Medical TRI-CYCLEN, Branch 28,) 0.18/0.215/ 0.25 mg-35 mcg (28) tablet norgestimat 2020-02- No [id number] 1{tbl} Take 1 Univers e-ethinyl 1-22 10-13 tablet by ity of estradioL 00:00: 00:00 mouth [place] (ORTHO 00 :00 daily. Medical TRI-CYCLEN, Branch 28,) 0.18/0.215/ 0.25 mg-35 mcg (28) tablet Immunizations Ordered Immunization Filled Immunization Date Status Commen ts Source Name Name TD 2022-05-26 Completed University of 00:00:00 [facility] TDAP 2022-05-26 Completed University of 00:00:00 [facility] TDAP 2022-05-26 Completed University of 00:00:00 [facility] TDAP 2022-05-26 Completed University of 00:00:00 [facility] TDAP 2022-05-26 Completed University of 00:00:00 [facility] TDAP 2022-05-26 Completed University of 00:00:00 [facility] TDAP 2022-05-26 Completed University of 00:00:00 [facility] TDAP 2022-05-26 Completed University of 00:00:00 [facility] TDAP 2022-05-26 Completed University of 00:00:00 [facility] TDAP 2022-05-26 Completed University of 00:00:00 [facility] TDAP 2022-05-26 Completed University of 00:00:00 [facility] TDAP 2022-05-26 Completed University of 00:00:00 [facility] TDAP 2022-05-26 Completed University of 00:00:00 [facility] TDAP 2022-05-26 Completed University of 00:00:00 [facility] TDAP 2022-05-26 Completed University of 00:00:00 [facility] TDAP 2022-05-26 Completed University of 00:00:00 [facility] TDAP 2022-05-26 Completed University of 00:00:00 [place] [facility] TDAP 2022-05-26 Completed University of 00:00:00 [place] [facility] TDAP 2022-05-26 Completed University of 00:00:00 [place] [facility] TDAP 2020-06-09 Completed University of 00:00:00 [place] [facility] TDAP 2020-06-09 Completed University of 00:00:00 [place] [facility] TDAP 2020-06-09 Completed University of 00:00:00 [place] [facility] TDAP 2020-06-09 Completed University of 00:00:00 [place] [facility] TDAP 2020-06-09 Completed University of 00:00:00 [place] [facility] TDAP 2020-06-09 Completed University of 00:00:00 [place] [facility] TDAP 2020-06-09 Completed University of 00:00:00 [place] [facility] TDAP 2020-06-09 Completed University of 00:00:00 [place] [facility] TDAP 2020-06-09 Completed University of 00:00:00 [place] [facility] TDAP 2020-06-09 Completed University of 00:00:00 [place] [facility] TDAP 2020-06-09 Completed University of 00:00:00 [place] [facility] TDAP 2020-06-09 Completed University of 00:00:00 [place] [facility] TDAP 2020-06-09 Completed University of 00:00:00 [place] [facility] TDAP 2020-06-09 Completed University of 00:00:00 [place] [facility] TDAP 2020-06-09 Completed University of 00:00:00 [place] [facility] TDAP 2020-06-09 Completed University of 00:00:00 [place] [facility] TDAP 2020-06-09 Completed University of 00:00:00 [place] [facility] TDAP 2020-06-09 Completed University of 00:00:00 [place] [facility] TDAP 2020-06-09 Completed University of 00:00:00 [place] [facility] TDAP 2020-06-09 Completed University of 00:00:00 [place] [facility] TDAP 2020-06-09 Completed University of 00:00:00 [place] [facility] TDAP 2020-06-09 Completed University of 00:00:00 [place] [facility] TDAP 2020-06-09 Completed University of 00:00:00 [place] [facility] TDAP 2020-06-09 Completed University of 00:00:00 [place] [facility] TDAP 2020-06-09 Completed University of 00:00:00 [place] [facility] TDAP 2020-06-09 Completed University of 00:00:00 [place] [facility] TDAP 2020-06-09 Completed University of 00:00:00 [place] [facility] TDAP 2020-06-09 Completed University of 00:00:00 [place] [facility] TDAP 2020-06-09 Completed University of 00:00:00 [place] [facility] TDAP 2020-06-09 Completed University of 00:00:00 [place] [facility] TDAP 2020-06-09 Completed University of 00:00:00 [place] [facility] TDAP 2020-06-09 Completed University of 00:00:00 [place] [facility] TDAP 2020-06-09 Completed University of 00:00:00 [place] [facility] TDAP 2020-06-09 Completed University of 00:00:00 [place] [facility] TDAP 2020-06-09 Completed University of 00:00:00 [place] [facility] TDAP 2020-06-09 Completed University of 00:00:00 [place] [facility] TDAP 2020-06-09 Completed University of 00:00:00 [facility] TDAP 2020-06-09 Completed University of 00:00:00 [place] [facility] TDAP 2020-06-09 Completed University of 00:00:00 [place] [facility] TDAP 2020-06-09 Completed University of 00:00:00 [place] [facility] TDAP 2020-06-09 Completed University of 00:00:00 [place] [facility] TDAP 2020-06-09 Completed University of 00:00:00 [place] [facility] TDAP 2020-06-09 Completed University of 00:00:00 [place] [facility] TDAP 2020-06-09 Completed University of 00:00:00 [place] [facility] TDAP 2020-06-09 Completed University of 00:00:00 [place] [facility] TDAP 2020-06-09 Completed University of 00:00:00 [place] [facility] TDAP 2020-06-09 Completed University of 00:00:00 [place] [facility] TDAP 2020-06-09 Completed University of 00:00:00 [place] [facility] TDAP 2020-06-09 Completed University of 00:00:00 [place] [facility] TDAP 2020-06-09 Completed University of 00:00:00 [facility] TDAP 2020-06-09 Completed University of 00:00:00 [facility] TDAP 2020-06-09 Completed University of 00:00:00 [facility] TDAP 2020-06-09 Completed University of 00:00:00 [facility] TDAP 2020-06-09 Completed University of 00:00:00 [facility] TDAP 2020-06-09 Completed University of 00:00:00 [facility] TDAP 2020-06-09 Completed University of 00:00:00 [facility] Influenza Virus 2020-01-21 Completed Universit y of [...] Vaccine 2018-10-18 Completed Uni versity of 00:00:00 [facility] TDAP 2018-10-18 Completed University of 00:00:00 [facility] Meningococcal B, OMV 2018-10-18 Completed Univ ersity of 00:00:00 [facility] Meningococcal Vaccine 2018-10-18 Completed Uni versity of 00:00:00 [facility] TDAP 2018-10-18 Completed University of 00:00:00 [facility] Meningococcal B, OMV 2018-10-18 Completed Univ ersity of 00:00:00 [facility] Meningococcal Vaccine 2018-10-18 Completed Uni versity of 00:00:00 [facility] TDAP 2018-10-18 Completed University of 00:00:00 [facility] Meningococcal B, OMV 2018-10-18 Completed Univ ersity of 00:00:00 [facility] Meningococcal Vaccine 2018-10-18 Completed Uni versity of 00:00:00 [facility] TDAP 2018-10-18 Completed University of 00:00:00 [facility] Branch Meningococcal B, OMV 2018-10-18 Completed Univ ersity of 00:00:00 [place] [facility] Meningococcal Vaccine 2018-10-18 Completed Uni versity of 00:00:00 [place] [facility] TDAP 2018-10-18 Completed University of 00:00:00 [facility] Meningococcal B, OMV 2018-10-18 Completed Univ ersity of 00:00:00 [place] [facility] Meningococcal Vaccine 2018-10-18 Completed Uni versity of 00:00:00 [place] [facility] TDAP 2018-10-18 Completed University of 00:00:00 [facility] Meningococcal B, OMV 2018-10-18 Completed Univ ersity of 00:00:00 [facility] Meningococcal Vaccine 2018-10-18 Completed Uni versity of 00:00:00 [facility] TDAP 2018-10-18 Completed University of 00:00:00 [facility] Meningococcal B, OMV 2018-10-18 Completed Univ ersity of 00:00:00 [facility] Meningococcal Vaccine 2018-10-18 Completed Uni versity of 00:00:00 [facility] TDAP 2018-10-18 Completed University of 00:00:00 [facility] Meningococcal B, OMV 2018-10-18 Completed Univ ersity of 00:00:00 [facility] Meningococcal Vaccine 2018-10-18 Completed Uni versity of 00:00:00 [facility] TDAP 2018-10-18 Completed University of 00:00:00 [facility] Meningococcal B, OMV 2018-10-18 Completed Univ ersity of 00:00:00 [facility] Meningococcal Vaccine 2018-10-18 Completed Uni versity of 00:00:00 [facility] TDAP 2018-10-18 Completed University of 00:00:00 [facility] Meningococcal B, OMV 2018-10-18 Completed Univ ersity of 00:00:00 [facility] Meningococcal Vaccine 2018-10-18 Completed Uni versity of 00:00:00 [place] [facility] TDAP 2018-10-18 Completed University of 00:00:00 [facility] Meningococcal B, OMV 2018-10-18 Completed Univ ersity of 00:00:00 [place] [facility] Meningococcal Vaccine 2018-10-18 Completed Uni versity of 00:00:00 [facility] TDAP 2018-10-18 Completed University of 00:00:00 [facility] Meningococcal B, OMV 2018-10-18 Completed Univ ersity of 00:00:00 [facility] Meningococcal Vaccine 2018-10-18 Completed Uni versity of 00:00:00 [facility] TDAP 2018-10-18 Completed University of 00:00:00 [facility] Meningococcal B, OMV 2018-10-18 Completed Univ ersity of 00:00:00 [place] [facility] Meningococcal Vaccine 2018-10-18 Completed Uni versity of 00:00:00 [facility] TDAP 2018-10-18 Completed University of 00:00:00 [facility] Meningococcal B, OMV 2018-10-18 Completed Univ ersity of 00:00:00 [facility] Meningococcal Vaccine 2018-10-18 Completed Uni versity of 00:00:00 [facility] TDAP 2018-10-18 Completed University of 00:00:00 [facility] Meningococcal B, OMV 2018-10-18 Completed Univ ersity of 00:00:00 [facility] Meningococcal Vaccine 2018-10-18 Completed Uni versity of 00:00:00 [facility] TDAP 2018-10-18 Completed University of 00:00:00 [facility] Meningococcal B, OMV 2018-10-18 Completed Univ ersity of 00:00:00 [facility] Meningococcal Vaccine 2018-10-18 Completed Uni versity of 00:00:00 [facility] TDAP 2018-10-18 Completed University of 00:00:00 [facility] Meningococcal B, OMV 2018-10-18 Completed Univ ersity of 00:00:00 [facility] Meningococcal Vaccine 2018-10-18 Completed Uni versity of 00:00:00 [facility] TDAP 2018-10-18 Completed University of 00:00:00 [facility] Meningococcal B, OMV 2018-10-18 Completed Univ ersity of 00:00:00 [place] [facility] Meningococcal Vaccine 2018-10-18 Completed Uni versity of 00:00:00 [place] [facility] TDAP 2018-10-18 Completed University of 00:00:00 [facility] Meningococcal B, OMV 2018-10-18 Completed Univ ersity of 00:00:00 [place] [facility] Meningococcal Vaccine 2018-10-18 Completed Uni versity of 00:00:00 [place] [facility] TDAP 2018-10-18 Completed University of 00:00:00 [facility] Meningococcal B, OMV 2018-10-18 Completed Univ ersity of 00:00:00 [facility] Meningococcal Vaccine 2018-10-18 Completed Uni versity of 00:00:00 [facility] TDAP 2018-10-18 Completed University of 00:00:00 [facility] Meningococcal B, OMV 2018-10-18 Completed Univ ersity of 00:00:00 [place] [facility] Meningococcal Vaccine 2018-10-18 Completed Uni versity of 00:00:00 [place] [facility] TDAP 2018-10-18 Completed University of 00:00:00 [facility] Meningococcal B, OMV 2018-10-18 Completed Univ ersity of 00:00:00 [place] [facility] Meningococcal Vaccine 2018-10-18 Completed Uni versity of 00:00:00 [facility] TDAP 2018-10-18 Completed University of 00:00:00 [facility] Meningococcal B, OMV 2018-10-18 Completed Univ ersity of 00:00:00 [facility] Meningococcal Vaccine 2018-10-18 Completed Uni versity of 00:00:00 [facility] TDAP 2018-10-18 Completed University of 00:00:00 [facility] Meningococcal B, OMV 2018-10-18 Completed Univ ersity of 00:00:00 [facility] Meningococcal Vaccine 2018-10-18 Completed Uni versity of 00:00:00 [facility] TDAP 2018-10-18 Completed University of 00:00:00 [facility] Meningococcal B, OMV 2018-10-18 Completed Univ ersity of 00:00:00 [place] [facility] Meningococcal Vaccine 2018-10-18 Completed Uni versity of 00:00:00 [place] [facility] TDAP 2018-10-18 Completed University of 00:00:00 [facility] Meningococcal B, OMV 2018-10-18 Completed Univ ersity of 00:00:00 [place] [facility] Meningococcal Vaccine 2018-10-18 Completed Uni versity of 00:00:00 [facility] TDAP 2018-10-18 Completed University of 00:00:00 [facility] Meningococcal B, OMV 2018-10-18 Completed Univ ersity of 00:00:00 [place] [facility] Meningococcal Vaccine 2018-10-18 Completed Uni versity of 00:00:00 [facility] TDAP 2018-10-18 Completed University of 00:00:00 [facility] Meningococcal B, OMV 2018-10-18 Completed Univ ersity of 00:00:00 [facility] Meningococcal Vaccine 2018-10-18 Completed Uni versity of 00:00:00 [facility] TDAP 2018-10-18 Completed University of 00:00:00 [facility] Meningococcal B, OMV 2018-10-18 Completed Univ ersity of 00:00:00 [facility] Meningococcal Vaccine 2018-10-18 Completed Uni versity of 00:00:00 [facility] TDAP 2018-10-18 Completed University of 00:00:00 [facility] Meningococcal B, OMV 2018-10-18 Completed Univ ersity of 00:00:00 [facility] Meningococcal Vaccine 2018-10-18 Completed Uni versity of 00:00:00 [facility] TDAP 2018-10-18 Completed University of 00:00:00 [facility] Meningococcal B, OMV 2018-10-18 Completed Univ ersity of 00:00:00 [facility] Meningococcal Vaccine 2018-10-18 Completed Uni versity of 00:00:00 [facility] TDAP 2018-10-18 Completed University of 00:00:00 [facility] Meningococcal B, OMV 2018-10-18 Completed Univ ersity of 00:00:00 [facility] Meningococcal Vaccine 2018-10-18 Completed Uni versity of 00:00:00 [facility] TDAP 2018-10-18 Completed University of 00:00:00 [facility] Meningococcal B, OMV 2018-10-18 Completed Univ ersity of 00:00:00 [facility] Meningococcal Vaccine 2018-10-18 Completed Uni versity of 00:00:00 [facility] TDAP 2018-10-18 Completed University of 00:00:00 [facility] Meningococcal B, OMV 2018-10-18 Completed Univ ersity of 00:00:00 [place] [facility] Meningococcal Vaccine 2018-10-18 Completed Uni versity of 00:00:00 [facility] TDAP 2018-10-18 Completed University of 00:00:00 [facility] Meningococcal B, OMV 2018-10-18 Completed Univ ersity of 00:00:00 [place] [facility] Meningococcal Vaccine 2018-10-18 Completed Uni versity of 00:00:00 [facility] TDAP 2018-10-18 Completed University of 00:00:00 [facility] Meningococcal B, OMV 2018-10-18 Completed Univ ersity of 00:00:00 [facility] Meningococcal Vaccine 2018-10-18 Completed Uni versity of 00:00:00 [facility] TDAP 2018-10-18 Completed University of 00:00:00 [facility] Meningococcal B, OMV 2018-10-18 Completed Univ ersity of 00:00:00 [facility] Meningococcal Vaccine 2018-10-18 Completed Uni versity of 00:00:00 [facility] TDAP 2018-10-18 Completed University of 00:00:00 [facility] Meningococcal B, OMV 2018-10-18 Completed Univ ersity of 00:00:00 [facility] Meningococcal 2018-10-18 Completed University of Polysaccharide 00:00:00 [place] [facility] (groups A, C, Y and Branc h W-135) conjugate vaccine (MCV4P) Meningococcal Vaccine 2018-10-18 Completed Uni versity of 00:00:00 [facility] TDAP 2018-10-18 Completed University of 00:00:00 [facility] Meningococcal B, OMV 2018-10-18 Completed Univ ersity of 00:00:00 [facility] Meningococcal 2018-10-18 Completed University of Polysaccharide 00:00:00 [place] [facility] (groups A, C, Y and Branc h W-135) conjugate vaccine (MCV4P) Meningococcal Vaccine 2018-10-18 Completed Uni versity of 00:00:00 [facility] TDAP 2018-10-18 Completed University of 00:00:00 [facility] Meningococcal B, OMV 2018-10-18 Completed Univ ersity of 00:00:00 [facility] Meningococcal 2018-10-18 Completed University of Polysaccharide 00:00:00 [place] [facility] (groups A, C, Y and Branc h W-135) conjugate vaccine (MCV4P) Meningococcal Vaccine 2018-10-18 Completed Uni versity of 00:00:00 [facility] TDAP 2018-10-18 Completed University of 00:00:00 [facility] Meningococcal B, OMV 2018-10-18 Completed Univ ersity of 00:00:00 [facility] Meningococcal 2018-10-18 Completed University of Polysaccharide 00:00:00 [place] [facility] (groups A, C, Y and Branc h W-135) conjugate vaccine (MCV4P) Meningococcal Vaccine 2018-10-18 Completed Uni versity of 00:00:00 [facility] TDAP 2018-10-18 Completed University of 00:00:00 [facility] Meningococcal B, OMV 2018-10-18 Completed Univ ersity of 00:00:00 [facility] Meningococcal 2018-10-18 Completed [facility] Polys[facility] 00:00:00 [place] [facility] (groups A, C, Y and Branc h W-135) conjugate vaccine (MCV4P) Meningococcal Vaccine 2018-10-18 Completed [facility] vers[facility] of 00:00:00 [facility] TDAP 2018-10-18 Completed [facility] 00:00:00 [facility] Meningococcal B, OMV 2018-10-18 Completed [facility] ersity of 00:00:00 [facility] Meningococcal 2018-10-18 Completed [facility] Polysaccharide 00:00:00 [place] [facility] (groups A, C, Y and Branc h W-135) conjugate vaccine (MCV4P) Meningococcal Vaccine 2018-10-18 Completed [facility] 00:00:00 [facility] TDAP 2018-10-18 Completed [facility] 00:00:00 [facility] Meningococcal B, OMV 2018-10-18 Completed [facility] ers[facility] 00:00:00 [facility] Meningococcal 2018-10-18 Completed [facility] Polysaccharide 00:00:00 [facility] (groups A, C, Y and Branc h W-135) conjugate vaccine (MCV4P) Meningococcal Vaccine 2018-10-18 Completed [facility] 00:00:00 [facility] TDAP 2018-10-18 Completed [facility] 00:00:00 [facility] Meningococcal B, OMV 2018-10-18 Completed [facility] ers[facility] 00:00:00 [facility] Meningococcal 2018-10-18 Completed [facility] Polysaccharide 00:00:00 [facility] (groups A, C, Y and Branc h W-135) conjugate vaccine (MCV4P) Meningococcal Vaccine 2018-10-18 Completed [facility] 00:00:00 [facility] TDAP 2018-10-18 Completed [facility] 00:00:00 [facility] Meningococcal B, OMV 2018-10-18 Completed [facility] ers[facility] 00:00:00 [facility] Meningococcal 2018-10-18 Completed [facility] Polysaccharide 00:00:00 [place] [facility] (groups A, C, Y and Branc h W-135) conjugate vaccine (MCV4P) Meningococcal Vaccine 2018-10-18 Completed [facility] 00:00:00 [facility] TDAP 2018-10-18 Completed [facility] 00:00:00 [facility] Meningococcal B, OMV 2018-10-18 Completed [facility] ers[facility] 00:00:00 [facility] Meningococcal 2018-10-18 Completed [facility] Polysaccharide 00:00:00 [place] [facility] (groups A, C, Y and Branc h W-135) conjugate vaccine (MCV4P) Meningococcal Vaccine 2018-10-18 Completed [facility] 00:00:00 [facility] TDAP 2018-10-18 Completed [facility] 00:00:00 [facility] Meningococcal B, OMV 2018-10-18 Completed [facility] ers[facility] 00:00:00 [facility] Meningococcal 2018-10-18 Completed [facility] Polysaccharide 00:00:00 [place] [facility] (groups A, C, Y and Branc h W-135) conjugate vaccine (MCV4P) Meningococcal Vaccine 2018-10-18 Completed [facility] vers[facility] 00:00:00 [facility] TDAP 2018-10-18 Completed [facility] 00:00:00 [facility] Meningococcal B, OMV 2018-10-18 Completed [facility] ersity of 00:00:00 [facility] Meningococcal 2018-10-18 Completed [facility] Polysaccharide 00:00:00 [place] [facility] (groups A, C, Y and Branc h W-135) conjugate vaccine (MCV4P) Meningococcal Vaccine 2018-10-18 Completed [facility] 00:00:00 [facility] TDAP 2018-10-18 Completed [facility] 00:00:00 [facility] Meningococcal B, OMV 2018-10-18 Completed [facility] ers[facility] 00:00:00 [facility] Meningococcal 2018-10-18 Completed [facility] Polysaccharide 00:00:00 [place] [facility] (groups A, C, Y and Branc h W-135) conjugate vaccine (MCV4P) Meningococcal Vaccine 2018-10-18 Completed [facility] 00:00:00 [facility] TDAP 2018-10-18 Completed [facility] 00:00:00 [facility] Meningococcal B, OMV 2018-10-18 Completed [facility] ers[facility] 00:00:00 [facility] Meningococcal 2018-10-18 Completed [facility] Polysaccharide 00:00:00 [place] [facility] (groups A, C, Y and Branc h W-135) conjugate vaccine (MCV4P) Meningococcal Vaccine 2018-10-18 Completed [facility] vers[facility] of 00:00:00 [facility] TDAP 2018-10-18 Completed [facility] 00:00:00 [facility] Meningococcal B, OMV 2018-10-18 Completed [facility] ers[facility] 00:00:00 [facility] Meningococcal 2018-10-18 Completed [facility] Polysaccharide 00:00:00 [place] [facility] (groups A, C, Y and Branc h W-135) conjugate vaccine (MCV4P) Meningococcal Vaccine 2018-10-18 Completed [facility] 00:00:00 [facility] TDAP 2018-10-18 Completed [facility] 00:00:00 [facility] Meningococcal B, OMV 2018-10-18 Completed [facility] ers[facility] of 00:00:00 [facility] Meningococcal 2018-10-18 Completed [facility] Polysaccharide 00:00:00 [place] [facility] (groups A, C, Y and Branc h W-135) conjugate vaccine (MCV4P) Meningococcal Vaccine 2018-10-18 Completed [facility]ity of 00:00:00 [facility] TDAP 2018-10-18 Completed [facility] 00:00:00 [facility] Meningococcal B, OMV 2018-10-18 Completed [facility] ers[facility] 00:00:00 [facility] Meningococcal 2018-10-18 Completed [facility] Polysaccharide 00:00:00 [place] [facility] (groups A, C, Y and Branc h W-135) conjugate vaccine (MCV4P) Meningococcal Vaccine 2018-10-18 Completed [facility] 00:00:00 [facility] TDAP 2018-10-18 Completed [facility] 00:00:00 [facility] Meningococcal B, OMV 2018-10-18 Completed [facility] ers[facility] 00:00:00 [facility] Meningococcal 2018-10-18 Completed [facility] Polysaccharide 00:00:00 [place] [facility] (groups A, C, Y and Branc h W-135) conjugate vaccine (MCV4P) Meningococcal Vaccine 2018-10-18 Completed [facility] 00:00:00 [facility] TDAP 2018-10-18 Completed [facility] 00:00:00 [facility] Meningococcal B, OMV 2018-10-18 Completed [facility] ers[facility] of 00:00:00 [facility] Meningococcal 2018-10-18 Completed [facility] Polysaccharide 00:00:00 [facility] [place] [facility] (groups A, C, Y and Branc h W-135) conjugate vaccine (MCV4P) DTAP 2006-10-25 Completed [facility] 00:00:00 [facility] Hepatitis A Adult 2006-10-25 Completed [facility] 00:00:00 [facility] Polio (IPV/OPV) 2006-10-25 Completed [facility] 00:00:00 [facility] DTAP 2006-10-25 Completed [facility] 00:00:00 [facility] Hepatitis A Adult 2006-10-25 Completed [facility] 00:00:00 [facility] Polio (IPV/OPV) 2006-10-25 Completed [facility] 00:00:00 [facility] DTAP 2006-10-25 Completed [facility] 00:00:00 [facility] Hepatitis A Adult 2006-10-25 Completed [facility] 00:00:00 [facility] Polio (IPV/OPV) 2006-10-25 Completed [facility] 00:00:00 [facility] DTAP 2006-10-25 Completed [facility] 00:00:00 [facility] Hepatitis A Adult 2006-10-25 Completed [facility] 00:00:00 [facility] Polio (IPV/OPV) 2006-10-25 Completed [facility] 00:00:00 [facility] DTAP 2006-10-25 Completed [facility] 00:00:00 [facility] Hepatitis A Adult 2006-10-25 Completed [facility] 00:00:00 [facility] Polio (IPV/OPV) 2006-10-25 Completed [facility] 00:00:00 [facility] DTAP 2006-10-25 Completed [facility] 00:00:00 [facility] Hepatitis A Adult 2006-10-25 Completed [facility] 00:00:00 [facility] Polio (IPV/OPV) 2006-10-25 Completed [facility] 00:00:00 [facility] DTAP 2006-10-25 Completed [facility] 00:00:00 [facility] Hepatitis A Adult 2006-10-25 Completed [facility] 00:00:00 [facility] Polio (IPV/OPV) 2006-10-25 Completed [facility] 00:00:00 [facility] DTAP 2006-10-25 Completed [facility] 00:00:00 [facility] Hepatitis A Adult 2006-10-25 Completed [facility] 00:00:00 [facility] Polio (IPV/OPV) 2006-10-25 Completed [facility] 00:00:00 [facility] DTAP 2006-10-25 Completed [facility] 00:00:00 [facility] Hepatitis A Adult 2006-10-25 Completed [facility] 00:00:00 [facility] Polio (IPV/OPV) 2006-10-25 Completed [facility] 00:00:00 [facility] DTAP 2006-10-25 Completed [facility] 00:00:00 [facility] Hepatitis A Adult 2006-10-25 Completed [facility] 00:00:00 [facility] Polio (IPV/OPV) 2006-10-25 Completed [facility] 00:00:00 [facility] [place] DTAP 2006-10-25 Completed [facility] 00:00:00 [facility] Hepatitis A Adult 2006-10-25 Completed [facility] 00:00:00 [facility] Polio (IPV/OPV) 2006-10-25 Completed [facility] of 00:00:00 [facility] DTAP 2006-10-25 Completed [facility] 00:00:00 [facility] Hepatitis A Adult 2006-10-25 Completed [facility] 00:00:00 [facility] Polio (IPV/OPV) 2006-10-25 Completed [facility] 00:00:00 [facility] [place] DTAP 2006-10-25 Completed [facility] 00:00:00 [facility] Hepatitis A Adult 2006-10-25 Completed [facility] 00:00:00 [facility] Polio (IPV/OPV) 2006-10-25 Completed [facility] 00:00:00 [facility] DTAP 2006-10-25 Completed [facility] 00:00:00 [facility] Hepatitis A Adult 2006-10-25 Completed [facility] 00:00:00 [facility] Polio (IPV/OPV) 2006-10-25 Completed [facility] 00:00:00 [facility] DTAP 2006-10-25 Completed [facility] 00:00:00 [facility] Hepatitis A Adult 2006-10-25 Completed [facility] 00:00:00 [facility] Polio (IPV/OPV) 2006-10-25 Completed [facility] 00:00:00 [facility] DTAP 2006-10-25 Completed [facility] 00:00:00 [facility] Hepatitis A Adult 2006-10-25 Completed [facility] 00:00:00 [facility] Polio (IPV/OPV) 2006-10-25 Completed [facility] 00:00:00 [facility] DTAP 2006-10-25 Completed [facility] 00:00:00 [facility] Hepatitis A Adult 2006-10-25 Completed [facility] 00:00:00 [facility] Polio (IPV/OPV) 2006-10-25 Completed [facility] 00:00:00 [facility] DTAP 2006-10-25 Completed [facility] 00:00:00 [facility] Hepatitis A Adult 2006-10-25 Completed [facility] 00:00:00 [facility] Polio (IPV/OPV) 2006-10-25 Completed [facility] 00:00:00 [facility] DTAP 2006-10-25 Completed [facility] 00:00:00 [facility] Hepatitis A Adult 2006-10-25 Completed [facility] 00:00:00 [facility] Polio (IPV/OPV) 2006-10-25 Completed [facility] 00:00:00 [facility] DTAP 2006-10-25 Completed [facility] 00:00:00 [facility] Hepatitis A Adult 2006-10-25 Completed [facility] 00:00:00 [facility] Polio (IPV/OPV) 2006-10-25 Completed [facility] 00:00:00 [facility] DTAP 2006-10-25 Completed [facility] 00:00:00 [facility] Hepatitis A Adult 2006-10-25 Completed [facility] 00:00:00 [facility] Polio (IPV/OPV) 2006-10-25 Completed [facility] 00:00:00 [facility] DTAP 2006-10-25 Completed [facility] 00:00:00 [facility] Hepatitis A Adult 2006-10-25 Completed [facility] 00:00:00 [facility] Polio (IPV/OPV) 2006-10-25 Completed [facility] 00:00:00 [facility] DTAP 2006-10-25 Completed [facility] 00:00:00 [facility] Hepatitis A Adult 2006-10-25 Completed [facility] 00:00:00 [facility] Polio (IPV/OPV) 2006-10-25 Completed [facility] 00:00:00 [facility] DTAP 2006-10-25 Completed [facility] 00:00:00 [facility] Hepatitis A Adult 2006-10-25 Completed [facility] 00:00:00 [facility] Polio (IPV/OPV) 2006-10-25 Completed [facility] 00:00:00 [facility] DTAP 2006-10-25 Completed [facility] 00:00:00 [facility] Hepatitis A Adult 2006-10-25 Completed [facility] 00:00:00 [facility] Polio (IPV/OPV) 2006-10-25 Completed [facility] 00:00:00 [facility] DTAP 2006-10-25 Completed [facility] 00:00:00 [facility] Hepatitis A Adult 2006-10-25 Completed [facility] 00:00:00 [facility] Polio (IPV/OPV) 2006-10-25 Completed [facility] 00:00:00 [facility] DTAP 2006-10-25 Completed [facility] 00:00:00 [facility] Hepatitis A Adult 2006-10-25 Completed [facility] 00:00:00 [facility] Polio (IPV/OPV) 2006-10-25 Completed [facility] of 00:00:00 [facility] DTAP 2006-10-25 Completed [facility] 00:00:00 [facility] Hepatitis A Adult 2006-10-25 Completed [facility] 00:00:00 [facility] Polio (IPV/OPV) 2006-10-25 Completed [facility] 00:00:00 [facility] DTAP 2006-10-25 Completed [facility] 00:00:00 [facility] Hepatitis A Adult 2006-10-25 Completed [facility] 00:00:00 [facility] Polio (IPV/OPV) 2006-10-25 Completed [facility] 00:00:00 [facility] DTAP 2006-10-25 Completed [facility] 00:00:00 [facility] Hepatitis A Adult 2006-10-25 Completed [facility] 00:00:00 [facility] Polio (IPV/OPV) 2006-10-25 Completed [facility] 00:00:00 [facility] DTAP 2006-10-25 Completed [facility] 00:00:00 [facility] Hepatitis A Adult 2006-10-25 Completed [facility] 00:00:00 [facility] Polio (IPV/OPV) 2006-10-25 Completed [facility] of 00:00:00 [facility] DTAP 2006-10-25 Completed [facility] 00:00:00 [facility] Hepatitis A Adult 2006-10-25 Completed [facility] 00:00:00 [facility] Polio (IPV/OPV) 2006-10-25 Completed [facility] of 00:00:00 [facility] DTAP 2006-10-25 Completed [facility] 00:00:00 [facility] Hepatitis A Adult 2006-10-25 Completed [facility] 00:00:00 [facility] Polio (IPV/OPV) 2006-10-25 Completed [facility] of 00:00:00 [facility] DTAP 2006-10-25 Completed [facility] 00:00:00 [facility] Hepatitis A Adult 2006-10-25 Completed [facility] 00:00:00 [facility] Polio (IPV/OPV) 2006-10-25 Completed [facility] 00:00:00 [facility] DTAP 2006-10-25 Completed [facility] 00:00:00 [facility] Hepatitis A Adult 2006-10-25 Completed [facility] 00:00:00 [facility] Polio (IPV/OPV) 2006-10-25 Completed [facility] 00:00:00 [facility] DTAP 2006-10-25 Completed [facility] 00:00:00 [facility] Hepatitis A Adult 2006-10-25 Completed [facility] 00:00:00 [facility] Polio (IPV/OPV) 2006-10-25 Completed [facility] 00:00:00 [facility] [place] DTAP 2006-10-25 Completed [facility] 00:00:00 [facility] Hepatitis A Adult 2006-10-25 Completed [facility] 00:00:00 [facility] Polio (IPV/OPV) 2006-10-25 Completed [facility] 00:00:00 [facility] DTAP 2006-10-25 Completed [facility] 00:00:00 [facility] Hepatitis A Adult 2006-10-25 Completed [facility] 00:00:00 [facility] Polio (IPV/OPV) 2006-10-25 Completed [facility] 00:00:00 [facility] DTaP, Unspecified 2006-10-25 Completed [facility] ity of Formulation 00:00:00 [facility] HEPA,NOS 2006-10-25 Completed [facility] 00:00:00 [facility] IPV 2006-10-25 Completed [facility] 00:00:00 [facility] DTAP 2006-10-25 Completed [facility] 00:00:00 [facility] Hepatitis A Adult 2006-10-25 Completed [facility] 00:00:00 [facility] Polio (IPV/OPV) 2006-10-25 Completed [facility] 00:00:00 [facility] DTaP, Unspecified 2006-10-25 Completed [facility]y [facility] Formulation 00:00:00 [facility] HEPA,NOS 2006-10-25 Completed [facility] 00:00:00 [facility] IPV 2006-10-25 Completed [facility] 00:00:00 [facility] DTAP 2006-10-25 Completed [facility] 00:00:00 [facility] Hepatitis A Adult 2006-10-25 Completed [facility] 00:00:00 [facility] Polio (IPV/OPV) 2006-10-25 Completed [facility] 00:00:00 [facility] DTaP, Unspecified 2006-10-25 Completed [facility] ity of Formulation 00:00:00 [facility] HEPA,NOS 2006-10-25 Completed [facility] 00:00:00 [facility] IPV 2006-10-25 Completed [facility] 00:00:00 [facility] DTAP 2006-10-25 Completed [facility] 00:00:00 [facility] Hepatitis A Adult 2006-10-25 Completed [facility] 00:00:00 [facility] Polio (IPV/OPV) 2006-10-25 Completed [facility] 00:00:00 [facility] DTaP, Unspecified 2006-10-25 Completed [facility] ity of Formulation 00:00:00 [facility] HEPA,NOS 2006-10-25 Completed [facility] 00:00:00 [facility] IPV 2006-10-25 Completed [facility] 00:00:00 [facility] DTAP 2006-10-25 Completed [facility] 00:00:00 [facility] Hepatitis A Adult 2006-10-25 Completed [facility] 00:00:00 [facility] Polio (IPV/OPV) 2006-10-25 Completed [facility] 00:00:00 [facility] DTaP, Unspecified 2006-10-25 Completed [facility] ity of Formulation 00:00:00 [facility] HEPA,NOS 2006-10-25 Completed [facility] 00:00:00 [facility] IPV 2006-10-25 Completed [facility] 00:00:00 [facility] DTAP 2006-10-25 Completed [facility] 00:00:00 [facility] Hepatitis A Adult 2006-10-25 Completed [facility] 00:00:00 [facility] Polio (IPV/OPV) 2006-10-25 Completed [facility] 00:00:00 [facility] DTaP, Unspecified 2006-10-25 Completed [facility] Formulation 00:00:00 [facility] HEPA,NOS 2006-10-25 Completed [facility] 00:00:00 [facility] IPV 2006-10-25 Completed [facility] 00:00:00 [facility] DTAP 2006-10-25 Completed [facility] 00:00:00 [facility] Hepatitis A Adult 2006-10-25 Completed [facility] 00:00:00 [facility] Polio (IPV/OPV) 2006-10-25 Completed [facility] 00:00:00 [facility] DTaP, Unspecified 2006-10-25 Completed [facility] Formulation 00:00:00 [facility] HEPA,NOS 2006-10-25 Completed [facility] 00:00:00 [facility] IPV 2006-10-25 Completed [facility] 00:00:00 [facility] DTAP 2006-10-25 Completed [facility] 00:00:00 [facility] Hepatitis A Adult 2006-10-25 Completed [facility] 00:00:00 [facility] Polio (IPV/OPV) 2006-10-25 Completed [facility] 00:00:00 [facility] DTaP, Unspecified 2006-10-25 Completed [facility] Formulation 00:00:00 [facility] HEPA,NOS 2006-10-25 Completed [facility] 00:00:00 [facility] IPV 2006-10-25 Completed [facility] 00:00:00 [facility] DTAP 2006-10-25 Completed [facility] 00:00:00 [facility] Hepatitis A Adult 2006-10-25 Completed [facility] 00:00:00 [facility] Polio (IPV/OPV) 2006-10-25 Completed [facility] 00:00:00 [facility] DTaP, Unspecified 2006-10-25 Completed [facility] Formulation 00:00:00 [facility] HEPA,NOS 2006-10-25 Completed [facility] 00:00:00 [facility] IPV 2006-10-25 Completed [facility] 00:00:00 [facility] DTAP 2006-10-25 Completed [facility] 00:00:00 [facility] Hepatitis A Adult 2006-10-25 Completed [facility] 00:00:00 [facility] Polio (IPV/OPV) 2006-10-25 Completed [facility] 00:00:00 [facility] DTaP, Unspecified 2006-10-25 Completed [facility] Formulation 00:00:00 [facility] HEPA,NOS 2006-10-25 Completed [facility] 00:00:00 [facility] IPV 2006-10-25 Completed [facility] 00:00:00 [facility] DTAP 2006-10-25 Completed [facility] 00:00:00 [facility] Hepatitis A Adult 2006-10-25 Completed [facility] 00:00:00 [facility] Polio (IPV/OPV) 2006-10-25 Completed [facility] 00:00:00 [facility] DTaP, Unspecified 2006-10-25 Completed [facility] Formulation 00:00:00 [facility] HEPA,NOS 2006-10-25 Completed [facility] 00:00:00 [facility] IPV 2006-10-25 Completed [facility] 00:00:00 [facility] DTAP 2006-10-25 Completed [facility] 00:00:00 [facility] Hepatitis A Adult 2006-10-25 Completed [facility] 00:00:00 [facility] Polio (IPV/OPV) 2006-10-25 Completed [facility] y of 00:00:00 [facility] DTaP, Unspecified 2006-10-25 Completed [facility] Formulation 00:00:00 [facility] HEPA,NOS 2006-10-25 Completed [facility] 00:00:00 [facility] IPV 2006-10-25 Completed [facility] of 00:00:00 [facility] DTAP 2006-10-25 Completed [facility] of 00:00:00 [facility] Hepatitis A Adult 2006-10-25 Completed [facility] 00:00:00 [facility] Polio (IPV/OPV) 2006-10-25 Completed [facility] 00:00:00 [facility] DTaP, Unspecified 2006-10-25 Completed [facility] Formulation 00:00:00 [facility] HEPA,NOS 2006-10-25 Completed [facility] of 00:00:00 [facility] IPV 2006-10-25 Completed [facility] of 00:00:00 [facility] DTAP 2006-10-25 Completed [facility] of 00:00:00 [facility] Hepatitis A Adult 2006-10-25 Completed [facility] 00:00:00 [facility] Polio (IPV/OPV) 2006-10-25 Completed [facility] 00:00:00 [facility] DTaP, Unspecified 2006-10-25 Completed [facility] Formulation 00:00:00 [facility] HEPA,NOS 2006-10-25 Completed [facility] of 00:00:00 [facility] IPV 2006-10-25 Completed [facility] of 00:00:00 [facility] DTAP 2006-10-25 Completed [facility] of 00:00:00 [facility] Hepatitis A Adult 2006-10-25 Completed [facility] 00:00:00 [facility] Polio (IPV/OPV) 2006-10-25 Completed [facility] 00:00:00 [facility] DTaP, Unspecified 2006-10-25 Completed [facility] Formulation 00:00:00 [facility] HEPA,NOS 2006-10-25 Completed [facility] of 00:00:00 [facility] IPV 2006-10-25 Completed [facility] 00:00:00 [facility] DTAP 2006-10-25 Completed [facility] of 00:00:00 [facility] Hepatitis A Adult 2006-10-25 Completed [facility] 00:00:00 [facility] Polio (IPV/OPV) 2006-10-25 Completed [facility] 00:00:00 [facility] DTaP, Unspecified 2006-10-25 Completed [facility] Formulation 00:00:00 [facility] HEPA,NOS 2006-10-25 Completed [facility] of 00:00:00 [facility] IPV 2006-10-25 Completed [facility] of 00:00:00 [facility] DTAP 2006-10-25 Completed [facility] of 00:00:00 [facility] Hepatitis A Adult 2006-10-25 Completed [facility] 00:00:00 [facility] Polio (IPV/OPV) 2006-10-25 Completed [facility] 00:00:00 [facility] DTaP, Unspecified 2006-10-25 Completed [facility] Formulation 00:00:00 [facility] HEPA,NOS 2006-10-25 Completed [facility] of 00:00:00 [facility] IPV 2006-10-25 Completed [facility] of 00:00:00 [facility] DTAP 2006-10-25 Completed [facility] of 00:00:00 [facility] Hepatitis A Adult 2006-10-25 Completed [facility] 00:00:00 [facility] Polio (IPV/OPV) 2006-10-25 Completed [facility] 00:00:00 [facility] DTaP, Unspecified 2006-10-25 Completed [facility] Formulation 00:00:00 [facility] HEPA,NOS 2006-10-25 Completed [facility] of 00:00:00 [facility] IPV 2006-10-25 Completed [facility] 00:00:00 [facility] DTAP 2006-10-25 Completed [facility] of 00:00:00 [facility] Hepatitis A Adult 2006-10-25 Completed [facility] 00:00:00 [facility] Polio (IPV/OPV) 2006-10-25 Completed [facility] of 00:00:00 [facility] DTaP, Unspecified 2006-10-25 Completed [facility] Formulation 00:00:00 [facility] HEPA,NOS 2006-10-25 Completed [facility] of 00:00:00 [facility] IPV 2006-10-25 Completed [facility] of 00:00:00 [facility] DTAP 2005-09-20 Completed [facility] of 00:00:00 [facility] HIB 3 Dose Schedule 2005-09-20 Completed [facility]ive rsity of 00:00:00 [facility] Hepatitis A Adult 2005-09-20 Completed [facility] of 00:00:00 [facility] Hep B, Adol or Pedi 2005-09-20 Completed [facility]ive rs[facility] of Dosage 00:00:00 [facility] Pneumococcal 13 2005-09-20 Completed [facility] of Conjugate, PCV13 00:00:00 [facility] (Prevnar 13) Branch Polio (IPV/OPV) 2005-09-20 Completed [facility] of 00:00:00 [facility] DTAP 2005-09-20 Completed [facility] of 00:00:00 [facility] HIB 3 Dose Schedule 2005-09-20 Completed [facility]ive rsity of 00:00:00 [facility] Hepatitis A Adult 2005-09-20 Completed [facility] of 00:00:00 [facility] Hep B, Adol or Pedi 2005-09-20 Completed [facility]ive rsity of Dosage 00:00:00 [facility] Pneumococcal 13 2005-09-20 Completed [facility] of Conjugate, PCV13 00:00:00 [facility] (Prevnar 13) Branch Polio (IPV/OPV) 2005-09-20 Completed [facility] of 00:00:00 [facility] DTAP 2005-09-20 Completed [facility] of 00:00:00 [facility] HIB 3 Dose Schedule 2005-09-20 Completed [facility]ive rsity of 00:00:00 [facility] Hepatitis A Adult 2005-09-20 Completed [facility] of 00:00:00 [facility] Hep B, Adol or Pedi 2005-09-20 Completed [facility]ive rsity of Dosage 00:00:00 [facility] Pneumococcal 13 2005-09-20 Completed [facility] of Conjugate, PCV13 00:00:00 [facility] (Prevnar 13) Branch Polio (IPV/OPV) 2005-09-20 Completed [facility] of 00:00:00 [facility] DTAP 2005-09-20 Completed [facility] of 00:00:00 [facility] HIB 3 Dose Schedule 2005-09-20 Completed [facility]ive rsity of 00:00:00 [facility] Hepatitis A Adult 2005-09-20 Completed [facility] of 00:00:00 [facility] Hep B, Adol or Pedi 2005-09-20 Completed [facility]ive rsity of Dosage 00:00:00 [facility] Pneumococcal 13 2005-09-20 Completed [facility] of Conjugate, PCV13 00:00:00 [facility] (Prevnar 13) Branch Polio (IPV/OPV) 2005-09-20 Completed [facility] of 00:00:00 [facility] DTAP 2005-09-20 Completed [facility] of 00:00:00 [facility] HIB 3 Dose Schedule 2005-09-20 Completed [facility]ive rsity of 00:00:00 [facility] Hepatitis A Adult 2005-09-20 Completed [facility] of 00:00:00 [facility] Hep B, Adol or Pedi 2005-09-20 Completed [facility]ive rsity of Dosage 00:00:00 [facility] Pneumococcal 13 2005-09-20 Completed [facility] of Conjugate, PCV13 00:00:00 [facility] (Prevnar 13) Branch Polio (IPV/OPV) 2005-09-20 Completed [facility] of 00:00:00 [facility] DTAP 2005-09-20 Completed [facility] of 00:00:00 [facility] HIB 3 Dose Schedule 2005-09-20 Completed [facility]ive rsity of 00:00:00 [facility] Hepatitis A Adult 2005-09-20 Completed [facility] of 00:00:00 [facility] Hep B, Adol or Pedi 2005-09-20 Completed [facility]ive rsity of Dosage 00:00:00 [facility] Pneumococcal 13 2005-09-20 Completed [facility] of Conjugate, PCV13 00:00:00 [facility] (Prevnar 13) Branch Polio (IPV/OPV) 2005-09-20 Completed [facility] of 00:00:00 [facility] DTAP 2005-09-20 Completed [facility] of 00:00:00 [facility] HIB 3 Dose Schedule 2005-09-20 Completed [facility]ive rsity of 00:00:00 [facility] Hepatitis A Adult 2005-09-20 Completed [facility] of 00:00:00 [facility] Hep B, Adol or Pedi 2005-09-20 Completed [facility]ive rsity of Dosage 00:00:00 [facility] Pneumococcal 13 2005-09-20 Completed [facility] of Conjugate, PCV13 00:00:00 [facility] (Prevnar 13) Branch Polio (IPV/OPV) 2005-09-20 Completed [facility] of 00:00:00 [facility] DTAP 2005-09-20 Completed [facility] of 00:00:00 [facility] HIB 3 Dose Schedule 2005-09-20 Completed Unive rsity of 00:00:00 [facility] Hepatitis A Adult 2005-09-20 Completed [facility] of 00:00:00 [facility] Hep B, Adol or Pedi 2005-09-20 Completed [facility]ive rsity of Dosage 00:00:00 [facility] Pneumococcal 13 2005-09-20 Completed [facility] of Conjugate, PCV13 00:00:00 [facility] (Prevnar 13) Branch Polio (IPV/OPV) 2005-09-20 Completed [facility] of 00:00:00 [facility] DTAP 2005-09-20 Completed [facility] of 00:00:00 [facility] HIB 3 Dose Schedule 2005-09-20 Completed [facility]ive rsity of 00:00:00 [facility] Hepatitis A Adult 2005-09-20 Completed [facility] of 00:00:00 [facility] Hep B, Adol or Pedi 2005-09-20 Completed [facility]ive rsity of Dosage 00:00:00 [facility] Pneumococcal 13 2005-09-20 Completed [facility] of Conjugate, PCV13 00:00:00 [facility] (Prevnar 13) Branch Polio (IPV/OPV) 2005-09-20 Completed [facility] of 00:00:00 [facility] DTAP 2005-09-20 Completed [facility] of 00:00:00 [facility] HIB 3 Dose Schedule 2005-09-20 Completed Unive rsity of 00:00:00 [facility] Hepatitis A Adult 2005-09-20 Completed [facility] of 00:00:00 [facility] Hep B, Adol or Pedi 2005-09-20 Completed [facility]ive rsity of Dosage 00:00:00 [facility] Pneumococcal 13 2005-09-20 Completed [facility] of Conjugate, PCV13 00:00:00 [facility] (Prevnar 13) Branch Polio (IPV/OPV) 2005-09-20 Completed [facility] of 00:00:00 [facility] DTAP 2005-09-20 Completed [facility] of 00:00:00 [facility] HIB 3 Dose Schedule 2005-09-20 Completed Unive rsity of 00:00:00 [facility] Hepatitis A Adult 2005-09-20 Completed [facility] of 00:00:00 [facility] Hep B, Adol or Pedi 2005-09-20 Completed [facility]ive rsity of Dosage 00:00:00 [facility] Pneumococcal 13 2005-09-20 Completed [facility] of Conjugate, PCV13 00:00:00 [facility] (Prevnar 13) Branch Polio (IPV/OPV) 2005-09-20 Completed [facility] of 00:00:00 [facility] DTAP 2005-09-20 Completed [facility] of 00:00:00 [facility] HIB 3 Dose Schedule 2005-09-20 Completed [facility]ive rsity of 00:00:00 [facility] Hepatitis A Adult 2005-09-20 Completed [facility] of 00:00:00 [facility] Hep B, Adol or Pedi 2005-09-20 Completed [facility]ive rsity of Dosage 00:00:00 [facility] Pneumococcal 13 2005-09-20 Completed [facility] of Conjugate, PCV13 00:00:00 [facility] (Prevnar 13) Branch Polio (IPV/OPV) 2005-09-20 Completed [facility] of 00:00:00 [facility] DTAP 2005-09-20 Completed [facility] of 00:00:00 [facility] HIB 3 Dose Schedule 2005-09-20 Completed Unive rsity of 00:00:00 [facility] Hepatitis A Adult 2005-09-20 Completed [facility] of 00:00:00 [facility] Hep B, Adol or Pedi 2005-09-20 Completed [facility]ive rsity of Dosage 00:00:00 [facility] Pneumococcal 13 2005-09-20 Completed [facility] of Conjugate, PCV13 00:00:00 [facility] (Prevnar 13) Branch Polio (IPV/OPV) 2005-09-20 Completed [facility] of 00:00:00 [facility] DTAP 2005-09-20 Completed [facility] of 00:00:00 [facility] HIB 3 Dose Schedule 2005-09-20 Completed Unive rsity of 00:00:00 [facility] Hepatitis A Adult 2005-09-20 Completed [facility] of 00:00:00 [facility] Hep B, Adol or Pedi 2005-09-20 Completed [facility]ive rsity of Dosage 00:00:00 [facility] Pneumococcal 13 2005-09-20 Completed [facility] of Conjugate, PCV13 00:00:00 [facility] (Prevnar 13) Branch Polio (IPV/OPV) 2005-09-20 Completed [facility] of 00:00:00 [facility] DTAP 2005-09-20 Completed [facility] of 00:00:00 [facility] HIB 3 Dose Schedule 2005-09-20 Completed Unive rsity of 00:00:00 [facility] Hepatitis A Adult 2005-09-20 Completed [facility] of 00:00:00 [facility] Hep B, Adol or Pedi 2005-09-20 Completed [facility]ive rsity of Dosage 00:00:00 [facility] Pneumococcal 13 2005-09-20 Completed [facility] of Conjugate, PCV13 00:00:00 [facility] (Prevnar 13) Branch Polio (IPV/OPV) 2005-09-20 Completed [facility] of 00:00:00 [facility] DTAP 2005-09-20 Completed [facility] of 00:00:00 [facility] HIB 3 Dose Schedule 2005-09-20 Completed Unive rsity of 00:00:00 [facility] Hepatitis A Adult 2005-09-20 Completed [facility] of 00:00:00 [facility] Hep B, Adol or Pedi 2005-09-20 Completed [facility]ive rsity of Dosage 00:00:00 [facility] Pneumococcal 13 2005-09-20 Completed [facility] of Conjugate, PCV13 00:00:00 [facility] (Prevnar 13) Branch Polio (IPV/OPV) 2005-09-20 Completed [facility] of 00:00:00 [facility] DTAP 2005-09-20 Completed [facility] of 00:00:00 [facility] HIB 3 Dose Schedule 2005-09-20 Completed Unive rsity of 00:00:00 [facility] Hepatitis A Adult 2005-09-20 Completed [facility] of 00:00:00 [facility] Hep B, Adol or Pedi 2005-09-20 Completed [facility]ive rsity of Dosage 00:00:00 [facility] Pneumococcal 13 2005-09-20 Completed [facility] of Conjugate, PCV13 00:00:00 [facility] (Prevnar 13) Branch Polio (IPV/OPV) 2005-09-20 Completed [facility] of 00:00:00 [facility] DTAP 2005-09-20 Completed [facility] of 00:00:00 [facility] HIB 3 Dose Schedule 2005-09-20 Completed [facility]ive rsity of 00:00:00 [facility] Hepatitis A Adult 2005-09-20 Completed [facility] of 00:00:00 [facility] Hep B, Adol or Pedi 2005-09-20 Completed [facility]ive rsity of Dosage 00:00:00 [facility] Pneumococcal 13 2005-09-20 Completed [facility] of Conjugate, PCV13 00:00:00 [facility] (Prevnar 13) Branch Polio (IPV/OPV) 2005-09-20 Completed [facility] of 00:00:00 [facility] DTAP 2005-09-20 Completed [facility] of 00:00:00 [facility] HIB 3 Dose Schedule 2005-09-20 Completed Unive rsity of 00:00:00 [facility] Hepatitis A Adult 2005-09-20 Completed [facility] of 00:00:00 [facility] Hep B, Adol or Pedi 2005-09-20 Completed [facility]ive rsity of Dosage 00:00:00 [facility] Pneumococcal 13 2005-09-20 Completed [facility] of Conjugate, PCV13 00:00:00 [facility] (Prevnar 13) Branch Polio (IPV/OPV) 2005-09-20 Completed [facility] of 00:00:00 [facility] DTAP 2005-09-20 Completed [facility] of 00:00:00 [facility] HIB 3 Dose Schedule 2005-09-20 Completed Unive rsity of 00:00:00 [facility] Hepatitis A Adult 2005-09-20 Completed [facility] of 00:00:00 [facility] Hep B, Adol or Pedi 2005-09-20 Completed [facility]ive rsity of Dosage 00:00:00 [facility] Pneumococcal 13 2005-09-20 Completed [facility] of Conjugate, PCV13 00:00:00 [facility] (Prevnar 13) Branch Polio (IPV/OPV) 2005-09-20 Completed [facility] of 00:00:00 [facility] DTAP 2005-09-20 Completed [facility] of 00:00:00 [facility] HIB 3 Dose Schedule 2005-09-20 Completed Unive rsity of 00:00:00 [facility] Hepatitis A Adult 2005-09-20 Completed [facility] of 00:00:00 [facility] Hep B, Adol or Pedi 2005-09-20 Completed [facility]ive rsity of Dosage 00:00:00 [facility] Pneumococcal 13 2005-09-20 Completed [facility] of Conjugate, PCV13 00:00:00 [facility] (Prevnar 13) Branch Polio (IPV/OPV) 2005-09-20 Completed [facility] of 00:00:00 [facility] DTAP 2005-09-20 Completed [facility] of 00:00:00 [facility] HIB 3 Dose Schedule 2005-09-20 Completed Unive rsity of 00:00:00 [facility] Hepatitis A Adult 2005-09-20 Completed [facility] of 00:00:00 [facility] Hep B, Adol or Pedi 2005-09-20 Completed [facility]ive rsity of Dosage 00:00:00 [facility] Pneumococcal 13 2005-09-20 Completed [facility] of Conjugate, PCV13 00:00:00 [facility] (Prevnar 13) Branch Polio (IPV/OPV) 2005-09-20 Completed [facility] of 00:00:00 [facility] DTAP 2005-09-20 Completed [facility] of 00:00:00 [facility] HIB 3 Dose Schedule 2005-09-20 Completed Unive rsity of 00:00:00 [facility] Hepatitis A Adult 2005-09-20 Completed [facility] of 00:00:00 [facility] Hep B, Adol or Pedi 2005-09-20 Completed [facility]ive rsity of Dosage 00:00:00 [facility] Pneumococcal 13 2005-09-20 Completed [facility] of Conjugate, PCV13 00:00:00 [facility] (Prevnar 13) Branch Polio (IPV/OPV) 2005-09-20 Completed [facility] of 00:00:00 [facility] DTAP 2005-09-20 Completed [facility] of 00:00:00 [facility] HIB 3 Dose Schedule 2005-09-20 Completed Unive rsity of 00:00:00 [facility] Hepatitis A Adult 2005-09-20 Completed [facility] of 00:00:00 [facility] Hep B, Adol or Pedi 2005-09-20 Completed [facility]ive rsity of Dosage 00:00:00 [facility] Pneumococcal 13 2005-09-20 Completed [facility] of Conjugate, PCV13 00:00:00 [facility] (Prevnar 13) Branch Polio (IPV/OPV) 2005-09-20 Completed [facility] 00:00:00 [facility] DTAP 2005-09-20 Completed [facility] of 00:00:00 [facility] HIB 3 Dose Schedule 2005-09-20 Completed Unive rsity of 00:00:00 [facility] Hepatitis A Adult 2005-09-20 Completed [facility] of 00:00:00 [facility] Hep B, Adol or Pedi 2005-09-20 Completed [facility]ive rsity of Dosage 00:00:00 [facility] Pneumococcal 13 2005-09-20 Completed [facility] of Conjugate, PCV13 00:00:00 [facility] (Prevnar 13) Branch Polio (IPV/OPV) 2005-09-20 Completed [facility] 00:00:00 [facility] DTAP 2005-09-20 Completed [facility] of 00:00:00 [facility] HIB 3 Dose Schedule 2005-09-20 Completed Unive rsity of 00:00:00 [facility] Hepatitis A Adult 2005-09-20 Completed [facility] of 00:00:00 [facility] Hep B, Adol or Pedi 2005-09-20 Completed [facility]ive rsity of Dosage 00:00:00 [facility] Pneumococcal 13 2005-09-20 Completed [facility] of Conjugate, PCV13 00:00:00 [facility] (Prevnar 13) Branch Polio (IPV/OPV) 2005-09-20 Completed [facility] 00:00:00 [facility] DTAP 2005-09-20 Completed [facility] of 00:00:00 [facility] HIB 3 Dose Schedule 2005-09-20 Completed Unive rsity of 00:00:00 [facility] Hepatitis A Adult 2005-09-20 Completed [facility] of 00:00:00 [facility] Hep B, Adol or Pedi 2005-09-20 Completed [facility]ive rsity of Dosage 00:00:00 [facility] Pneumococcal 13 2005-09-20 Completed [facility] of Conjugate, PCV13 00:00:00 [facility] (Prevnar 13) Branch Polio (IPV/OPV) 2005-09-20 Completed [facility] 00:00:00 [facility] DTAP 2005-09-20 Completed [facility] 00:00:00 [facility] HIB 3 Dose Schedule 2005-09-20 Completed Unive rsity of 00:00:00 [facility] Hepatitis A Adult 2005-09-20 Completed [facility] of 00:00:00 [facility] Hep B, Adol or Pedi 2005-09-20 Completed [facility]ive rsity of Dosage 00:00:00 [facility] Pneumococcal 13 2005-09-20 Completed [facility] of Conjugate, PCV13 00:00:00 [facility] (Prevnar 13) Branch Polio (IPV/OPV) 2005-09-20 Completed [facility] 00:00:00 [facility] DTAP 2005-09-20 Completed [facility] 00:00:00 [facility] HIB 3 Dose Schedule 2005-09-20 Completed [facility]ive rsity of 00:00:00 [facility] Hepatitis A Adult 2005-09-20 Completed [facility] of 00:00:00 [facility] Hep B, Adol or Pedi 2005-09-20 Completed [facility]ive rsity of Dosage 00:00:00 [facility] Pneumococcal 13 2005-09-20 Completed [facility] Conjugate, PCV13 00:00:00 [facility] (Prevnar 13) Branch Polio (IPV/OPV) 2005-09-20 Completed [facility] 00:00:00 [facility] DTAP 2005-09-20 Completed [facility] 00:00:00 [facility] HIB 3 Dose Schedule 2005-09-20 Completed Unive rsity of 00:00:00 [facility] Hepatitis A Adult 2005-09-20 Completed [facility] 00:00:00 [facility] Hep B, Adol or Pedi 2005-09-20 Completed [facility] Dosage 00:00:00 [facility] Pneumococcal 13 2005-09-20 Completed [facility] of Conjugate, PCV13 00:00:00 [facility] dical (Prevnar 13) Branch Polio (IPV/OPV) 2005-09-20 Completed [facility] 00:00:00 [facility] DTAP 2005-09-20 Completed [facility] of 00:00:00 [facility] HIB 3 Dose Schedule 2005-09-20 Completed [facility] 00:00:00 [facility] Hepatitis A Adult 2005-09-20 Completed [facility] 00:00:00 [facility] Hep B, Adol or Pedi 2005-09-20 Completed [facility] Dosage 00:00:00 [facility] Pneumococcal 13 2005-09-20 Completed [facility] Conjugate, PCV13 00:00:00 [facility] (Prevnar 13) Branch Polio (IPV/OPV) 2005-09-20 Completed [facility] 00:00:00 [facility] DTAP 2005-09-20 Completed [facility] of 00:00:00 [facility] HIB 3 Dose Schedule 2005-09-20 Completed [facility] 00:00:00 [facility] Hepatitis A Adult 2005-09-20 Completed [facility] 00:00:00 [facility] Hep B, Adol or Pedi 2005-09-20 Completed [facility] Dosage 00:00:00 [facility] Pneumococcal 13 2005-09-20 Completed [facility] Conjugate, PCV13 00:00:00 [facility] (Prevnar 13) Branch Polio (IPV/OPV) 2005-09-20 Completed [facility] 00:00:00 [facility] DTAP 2005-09-20 Completed [facility] 00:00:00 [facility] HIB 3 Dose Schedule 2005-09-20 Completed [facility] 00:00:00 [facility] Hepatitis A Adult 2005-09-20 Completed [facility] 00:00:00 [facility] Hep B, Adol or Pedi 2005-09-20 Completed [facility] Dosage 00:00:00 [facility] Pneumococcal 13 2005-09-20 Completed [facility] Conjugate, PCV13 00:00:00 [facility] (Prevnar 13) Branch Polio (IPV/OPV) 2005-09-20 Completed [facility] 00:00:00 [facility] DTAP 2005-09-20 Completed [facility] 00:00:00 [facility] HIB 3 Dose Schedule 2005-09-20 Completed [facility] 00:00:00 [facility] Hepatitis A Adult 2005-09-20 Completed [facility] 00:00:00 [facility] Hep B, Adol or Pedi 2005-09-20 Completed [facility] Dosage 00:00:00 [facility] Pneumococcal 13 2005-09-20 Completed [facility] Conjugate, PCV13 00:00:00 [facility] (Prevnar 13) Branch Polio (IPV/OPV) 2005-09-20 Completed [facility] 00:00:00 [facility] DTAP 2005-09-20 Completed [facility] 00:00:00 [facility] HIB 3 Dose Schedule 2005-09-20 Completed [facility] 00:00:00 [facility] Hepatitis A Adult 2005-09-20 Completed [facility] 00:00:00 [facility] Hep B, Adol or Pedi 2005-09-20 Completed [facility] Dosage 00:00:00 [facility] Pneumococcal 13 2005-09-20 Completed [facility] of Conjugate, PCV13 00:00:00 [facility] (Prevnar 13) Branch Polio (IPV/OPV) 2005-09-20 Completed [facility] 00:00:00 [facility] DTAP 2005-09-20 Completed [facility] of 00:00:00 [facility] HIB 3 Dose Schedule 2005-09-20 Completed [facility] 00:00:00 [facility] Hepatitis A Adult 2005-09-20 Completed [facility] 00:00:00 [facility] Hep B, Adol or Pedi 2005-09-20 Completed [facility] Dosage 00:00:00 [facility] Pneumococcal 13 2005-09-20 Completed [facility] of Conjugate, PCV13 00:00:00 [facility] (Prevnar 13) Branch Polio (IPV/OPV) 2005-09-20 Completed [facility] 00:00:00 [facility] DTAP 2005-09-20 Completed [facility] of 00:00:00 [facility] HIB 3 Dose Schedule 2005-09-20 Completed [facility] 00:00:00 [facility] Hepatitis A Adult 2005-09-20 Completed [facility] 00:00:00 [facility] Hep B, Adol or Pedi 2005-09-20 Completed [facility] of Dosage 00:00:00 [facility] Pneumococcal 13 2005-09-20 Completed [facility] of Conjugate, PCV13 00:00:00 [facility] (Prevnar 13) Branch Polio (IPV/OPV) 2005-09-20 Completed [facility] 00:00:00 [facility] DTAP 2005-09-20 Completed [facility] of 00:00:00 [facility] HIB 3 Dose Schedule 2005-09-20 Completed [facility] of 00:00:00 [facility] Hepatitis A Adult 2005-09-20 Completed [facility] 00:00:00 [facility] Hep B, Adol or Pedi 2005-09-20 Completed [facility] Dosage 00:00:00 [facility] Pneumococcal 13 2005-09-20 Completed [facility] of Conjugate, PCV13 00:00:00 [facility] (Prevnar 13) Branch Polio (IPV/OPV) 2005-09-20 Completed [facility] 00:00:00 [facility] DTaP, Unspecified 2005-09-20 Completed [facility] Formulation 00:00:00 [facility] HEPATITIS A 2005-09-20 Completed [facility] of 00:00:00 [facility] HIB 4 Dose Schedule 2005-09-20 Completed [facility] of 00:00:00 [facility] Pneumococcal 7 2005-09-20 Completed [facility] Conjugate, PCV7 00:00:00 [facility] (Prevnar7) Branch IPV 2005-09-20 Completed [facility] of 00:00:00 [facility] DTAP 2005-09-20 Completed [facility] of 00:00:00 [facility] HIB 3 Dose Schedule 2005-09-20 Completed [facility] of 00:00:00 [facility] Hepatitis A Adult 2005-09-20 Completed [facility] 00:00:00 [facility] Hep B, Adol or Pedi 2005-09-20 Completed [facility] Dosage 00:00:00 [facility] Pneumococcal 13 2005-09-20 Completed [facility] of Conjugate, PCV13 00:00:00 [facility] (Prevnar 13) Branch Polio (IPV/OPV) 2005-09-20 Completed [facility] 00:00:00 [facility] DTaP, Unspecified 2005-09-20 Completed [facility] Formulation 00:00:00 [facility] HEPATITIS A 2005-09-20 Completed [facility] of 00:00:00 [facility] HIB 4 Dose Schedule 2005-09-20 Completed [facility] of 00:00:00 [facility] Pneumococcal 7 2005-09-20 Completed [facility] of Conjugate, PCV7 00:00:00 [facility] ical (Prevnar7) Branch IPV 2005-09-20 Completed [facility] of 00:00:00 [facility] DTAP 2005-09-20 Completed [facility] of 00:00:00 [facility] HIB 3 Dose Schedule 2005-09-20 Completed [facility] of 00:00:00 [facility] Hepatitis A Adult 2005-09-20 Completed [facility] 00:00:00 [facility] Hep B, Adol or Pedi 2005-09-20 Completed [facility] of Dosage 00:00:00 [facility] Pneumococcal 13 2005-09-20 Completed [facility] of Conjugate, PCV13 00:00:00 [facility] (Prevnar 13) Branch Polio (IPV/OPV) 2005-09-20 Completed [facility] 00:00:00 [facility] DTaP, Unspecified 2005-09-20 Completed [facility] of Formulation 00:00:00 [facility] HEPATITIS A 2005-09-20 Completed [facility] of 00:00:00 [facility] HIB 4 Dose Schedule 2005-09-20 Completed [facility] of 00:00:00 [facility] Pneumococcal 7 2005-09-20 Completed [facility] of Conjugate, PCV7 00:00:00 [facility] (Prevnar7) Branch IPV 2005-09-20 Completed [facility] of 00:00:00 [facility] DTAP 2005-09-20 Completed [facility] of 00:00:00 [facility] HIB 3 Dose Schedule 2005-09-20 Completed [facility] of 00:00:00 [facility] Hepatitis A Adult 2005-09-20 Completed [facility] 00:00:00 [facility] Hep B, Adol or Pedi 2005-09-20 Completed [facility] of Dosage 00:00:00 [facility] Pneumococcal 13 2005-09-20 Completed [facility] of Conjugate, PCV13 00:00:00 [facility] (Prevnar 13) Branch Polio (IPV/OPV) 2005-09-20 Completed [facility] 00:00:00 [facility] DTaP, Unspecified 2005-09-20 Completed [facility] Formulation 00:00:00 [facility] HEPATITIS A 2005-09-20 Completed [facility] of 00:00:00 [facility] HIB 4 Dose Schedule 2005-09-20 Completed [facility] of 00:00:00 [facility] Pneumococcal 7 2005-09-20 Completed [facility] of Conjugate, PCV7 00:00:00 [facility] ical (Prevnar7) Branch IPV 2005-09-20 Completed [facility] of 00:00:00 [facility] DTAP 2005-09-20 Completed [facility] of 00:00:00 [facility] HIB 3 Dose Schedule 2005-09-20 Completed [facility] of 00:00:00 [facility] Hepatitis A Adult 2005-09-20 Completed [facility] 00:00:00 [facility] Hep B, Adol or Pedi 2005-09-20 Completed [facility] of Dosage 00:00:00 [facility] Pneumococcal 13 2005-09-20 Completed [facility] of Conjugate, PCV13 00:00:00 [facility] d[facility] (Prevnar 13) Branch Polio (IPV/OPV) 2005-09-20 Completed [facility] 00:00:00 [facility] DTaP, Unspecified 2005-09-20 Completed [facility] Formulation 00:00:00 [facility] HEPATITIS A 2005-09-20 Completed [facility] of 00:00:00 [facility] HIB 4 Dose Schedule 2005-09-20 Completed [facility] of 00:00:00 [facility] Pneumococcal 7 2005-09-20 Completed [facility] of Conjugate, PCV7 00:00:00 [facility] (Prevnar7) Branch IPV 2005-09-20 Completed [facility] of 00:00:00 [facility] DTAP 2005-09-20 Completed [facility] of 00:00:00 [facility] HIB 3 Dose Schedule 2005-09-20 Completed [facility] of 00:00:00 [facility] Hepatitis A Adult 2005-09-20 Completed [facility] 00:00:00 [facility] Hep B, Adol or Pedi 2005-09-20 Completed [facility] of Dosage 00:00:00 [facility] Pneumococcal 13 2005-09-20 Completed [facility] of Conjugate, PCV13 00:00:00 [facility] (Prevnar 13) Branch Polio (IPV/OPV) 2005-09-20 Completed [facility] 00:00:00 [facility] DTaP, Unspecified 2005-09-20 Completed [facility] Formulation 00:00:00 [facility] HEPATITIS A 2005-09-20 Completed [facility] of 00:00:00 [facility] HIB 4 Dose Schedule 2005-09-20 Completed [facility] of 00:00:00 [facility] Pneumococcal 7 2005-09-20 Completed [facility] of Conjugate, PCV7 00:00:00 [facility] ical (Prevnar7) Branch IPV 2005-09-20 Completed [facility] of 00:00:00 [facility] DTAP 2005-09-20 Completed [facility] of 00:00:00 [facility] HIB 3 Dose Schedule 2005-09-20 Completed [facility] of 00:00:00 [facility] Hepatitis A Adult 2005-09-20 Completed [facility] 00:00:00 [facility] Hep B, Adol or Pedi 2005-09-20 Completed [facility] of Dosage 00:00:00 [facility] Pneumococcal 13 2005-09-20 Completed [facility] of Conjugate, PCV13 00:00:00 [facility] d[facility] (Prevnar 13) Branch Polio (IPV/OPV) 2005-09-20 Completed [facility] 00:00:00 [facility] DTaP, Unspecified 2005-09-20 Completed [facility] of Formulation 00:00:00 [facility] HEPATITIS A 2005-09-20 Completed [facility] of 00:00:00 [facility] HIB 4 Dose Schedule 2005-09-20 Completed [facility] of 00:00:00 [facility] Pneumococcal 7 2005-09-20 Completed [facility] of Conjugate, PCV7 00:00:00 [facility] (Prevnar7) Branch IPV 2005-09-20 Completed [facility] of 00:00:00 [facility] DTAP 2005-09-20 Completed [facility] of 00:00:00 [facility] HIB 3 Dose Schedule 2005-09-20 Completed [facility] of 00:00:00 [facility] Hepatitis A Adult 2005-09-20 Completed [facility] 00:00:00 [facility] Hep B, Adol or Pedi 2005-09-20 Completed [facility] of Dosage 00:00:00 [facility] Pneumococcal 13 2005-09-20 Completed [facility] of Conjugate, PCV13 00:00:00 [facility] d[facility] (Prevnar 13) Branch Polio (IPV/OPV) 2005-09-20 Completed [facility] 00:00:00 [facility] DTaP, Unspecified 2005-09-20 Completed [facility] Formulation 00:00:00 [facility] HEPATITIS A 2005-09-20 Completed [facility] of 00:00:00 [facility] HIB 4 Dose Schedule 2005-09-20 Completed [facility] of 00:00:00 [facility] Pneumococcal 7 2005-09-20 Completed [facility] of Conjugate, PCV7 00:00:00 [facility] (Prevnar7) Branch IPV 2005-09-20 Completed [facility] of 00:00:00 [facility] DTAP 2005-09-20 Completed [facility] of 00:00:00 [facility] HIB 3 Dose Schedule 2005-09-20 Completed [facility] of 00:00:00 [facility] Hepatitis A Adult 2005-09-20 Completed [facility] 00:00:00 [facility] Hep B, Adol or Pedi 2005-09-20 Completed [facility] of Dosage 00:00:00 [facility] Pneumococcal 13 2005-09-20 Completed [facility] of Conjugate, PCV13 00:00:00 [facility] d[facility] (Prevnar 13) Branch Polio (IPV/OPV) 2005-09-20 Completed [facility] 00:00:00 [facility] DTaP, Unspecified 2005-09-20 Completed [facility] of Formulation 00:00:00 [facility] HEPATITIS A 2005-09-20 Completed [facility] of 00:00:00 [facility] HIB 4 Dose Schedule 2005-09-20 Completed [facility] of 00:00:00 [facility] Pneumococcal 7 2005-09-20 Completed [facility] of Conjugate, PCV7 00:00:00 [facility] (Prevnar7) Branch IPV 2005-09-20 Completed [facility] of 00:00:00 [facility] DTAP 2005-09-20 Completed [facility] of 00:00:00 [facility] HIB 3 Dose Schedule 2005-09-20 Completed [facility] rs[facility] of 00:00:00 [facility] Hepatitis A Adult 2005-09-20 Completed [facility] 00:00:00 [facility] Hep B, Adol or Pedi 2005-09-20 Completed [facility] of Dosage 00:00:00 [facility] Pneumococcal 13 2005-09-20 Completed [facility] of Conjugate, PCV13 00:00:00 [facility] (Prevnar 13) [place] Polio (IPV/OPV) 2005-09-20 Completed [facility] 00:00:00 [facility] DTaP, Unspecified 2005-09-20 Completed [facility] of Formulation 00:00:00 [facility] HEPATITIS A 2005-09-20 Completed [facility] of 00:00:00 [facility] HIB 4 Dose Schedule 2005-09-20 Completed [facility] rs[facility] of 00:00:00 [facility] Pneumococcal 7 2005-09-20 Completed University of Conjugate, PCV7 00:00:00 [facility] ical (Prevnar7) Branch IPV 2005-09-20 Completed [facility] of 00:00:00 [facility] DTAP 2005-09-20 Completed [facility] of 00:00:00 [facility] HIB 3 Dose Schedule 2005-09-20 Completed [facility] rs[facility] of 00:00:00 [facility] Hepatitis A Adult 2005-09-20 Completed [facility] 00:00:00 [facility] Hep B, Adol or Pedi 2005-09-20 Completed [facility] of Dosage 00:00:00 [facility] Pneumococcal 13 2005-09-20 Completed [facility] of Conjugate, PCV13 00:00:00 [facility] (Prevnar 13) Branch Polio (IPV/OPV) 2005-09-20 Completed [facility] 00:00:00 [facility] DTaP, Unspecified 2005-09-20 Completed [facility] of Formulation 00:00:00 [facility] HEPATITIS A 2005-09-20 Completed [facility] of 00:00:00 [facility] HIB 4 Dose Schedule 2005-09-20 Completed [facility] rs[facility] of 00:00:00 [facility] Pneumococcal 7 2005-09-20 Completed [facility] of Conjugate, PCV7 00:00:00 [facility] (Prevnar7) Branch IPV 2005-09-20 Completed [facility] of 00:00:00 [facility] DTAP 2005-09-20 Completed [facility] of 00:00:00 [facility] HIB 3 Dose Schedule 2005-09-20 Completed [facility] of 00:00:00 [facility] Hepatitis A Adult 2005-09-20 Completed [facility] 00:00:00 [facility] Hep B, Adol or Pedi 2005-09-20 Completed [facility] of Dosage 00:00:00 [facility] Pneumococcal 13 2005-09-20 Completed [facility] of Conjugate, PCV13 00:00:00 [facility] (Prevnar 13) Branch Polio (IPV/OPV) 2005-09-20 Completed [facility] 00:00:00 [facility] DTaP, Unspecified 2005-09-20 Completed [facility] Formulation 00:00:00 [facility] HEPATITIS A 2005-09-20 Completed [facility] of 00:00:00 [facility] HIB 4 Dose Schedule 2005-09-20 Completed [facility] rs[facility] of 00:00:00 [facility] Pneumococcal 7 2005-09-20 Completed [facility] of Conjugate, PCV7 00:00:00 [facility] (Prevnar7) Branch IPV 2005-09-20 Completed [facility] of 00:00:00 [facility] DTAP 2005-09-20 Completed [facility] of 00:00:00 [facility] HIB 3 Dose Schedule 2005-09-20 Completed [facility] rs[facility] of 00:00:00 [facility] Hepatitis A Adult 2005-09-20 Completed [facility] 00:00:00 [facility] Hep B, Adol or Pedi 2005-09-20 Completed [facility] of Dosage 00:00:00 [facility] Pneumococcal 13 2005-09-20 Completed [facility] of Conjugate, PCV13 00:00:00 [facility] (Prevnar 13) Branch Polio (IPV/OPV) 2005-09-20 Completed [facility] 00:00:00 [facility] DTaP, Unspecified 2005-09-20 Completed [facility] Formulation 00:00:00 [facility] HEPATITIS A 2005-09-20 Completed [facility] of 00:00:00 [facility] HIB 4 Dose Schedule 2005-09-20 Completed [facility] rs[facility] of 00:00:00 [facility] Pneumococcal 7 2005-09-20 Completed [facility] of Conjugate, PCV7 00:00:00 [facility] (Prevnar7) Branch IPV 2005-09-20 Completed [facility] of 00:00:00 [facility] DTAP 2005-09-20 Completed [facility] of 00:00:00 [facility] HIB 3 Dose Schedule 2005-09-20 Completed [facility] rs[facility] of 00:00:00 [facility] Hepatitis A Adult 2005-09-20 Completed [facility] 00:00:00 [facility] Hep B, Adol or Pedi 2005-09-20 Completed [facility] of Dosage 00:00:00 [facility] Pneumococcal 13 2005-09-20 Completed [facility] of Conjugate, PCV13 00:00:00 [facility] (Prevnar 13) Branch Polio (IPV/OPV) 2005-09-20 Completed [facility] 00:00:00 [facility] DTaP, Unspecified 2005-09-20 Completed [facility] of Formulation 00:00:00 [facility] HEPATITIS A 2005-09-20 Completed [facility] of 00:00:00 [facility] HIB 4 Dose Schedule 2005-09-20 Completed [facility] rs[facility] of 00:00:00 [facility] Pneumococcal 7 2005-09-20 Completed [facility] of Conjugate, PCV7 00:00:00 [facility] (Prevnar7) Branch IPV 2005-09-20 Completed [facility] of 00:00:00 [facility] DTAP 2005-09-20 Completed [facility] of 00:00:00 [facility] HIB 3 Dose Schedule 2005-09-20 Completed [facility] rs[facility] of 00:00:00 [facility] Hepatitis A Adult 2005-09-20 Completed [facility] 00:00:00 [facility] Hep B, Adol or Pedi 2005-09-20 Completed [facility] of Dosage 00:00:00 [facility] Pneumococcal 13 2005-09-20 Completed [facility] of Conjugate, PCV13 00:00:00 [facility] (Prevnar 13) Branch Polio (IPV/OPV) 2005-09-20 Completed [facility] 00:00:00 [facility] DTaP, Unspecified 2005-09-20 Completed [facility] Formulation 00:00:00 [facility] HEPATITIS A 2005-09-20 Completed [facility] of 00:00:00 [facility] HIB 4 Dose Schedule 2005-09-20 Completed [facility] rs[facility] of 00:00:00 [facility] Pneumococcal 7 2005-09-20 Completed [facility] of Conjugate, PCV7 00:00:00 [facility] (Prevnar7) Branch IPV 2005-09-20 Completed [facility] of 00:00:00 [facility] DTAP 2005-09-20 Completed [facility] of 00:00:00 [facility] HIB 3 Dose Schedule 2005-09-20 Completed [facility] of 00:00:00 [facility] Hepatitis A Adult 2005-09-20 Completed [facility] 00:00:00 [facility] Hep B, Adol or Pedi 2005-09-20 Completed [facility] of Dosage 00:00:00 [facility] Pneumococcal 13 2005-09-20 Completed [facility] of Conjugate, PCV13 00:00:00 [facility] (Prevnar 13) [place] Polio (IPV/OPV) 2005-09-20 Completed [facility] 00:00:00 [facility] DTaP, Unspecified 2005-09-20 Completed [facility] Formulation 00:00:00 [facility] HEPATITIS A 2005-09-20 Completed [facility] 00:00:00 [facility] HIB 4 Dose Schedule 2005-09-20 Completed [facility] rs[facility] of 00:00:00 [facility] Pneumococcal 7 2005-09-20 Completed [facility] Conjugate, PCV7 00:00:00 [place] [facility] (Prevnar7) Branch IPV 2005-09-20 Completed [facility] of 00:00:00 [facility] DTAP 2005-09-20 Completed [facility] of 00:00:00 [facility] HIB 3 Dose Schedule 2005-09-20 Completed Unive rsity of 00:00:00 [facility] Hepatitis A Adult 2005-09-20 Completed Univers ity of 00:00:00 [facility] Hep B, Adol or Pedi 2005-09-20 Completed Unive rsity of Dosage 00:00:00 [facility] Pneumococcal 13 2005-09-20 Completed Universit y of Conjugate, PCV13 00:00:00 [facility] dical (Prevnar 13) [place] Polio (IPV/OPV) 2005-09-20 Completed Universit y of 00:00:00 [facility] DTaP, Unspecified 2005-09-20 Completed Univers ity of Formulation 00:00:00 [facility] HEPATITIS A 2005-09-20 Completed [facility] of 00:00:00 [facility] HIB 4 Dose Schedule 2005-09-20 Completed Unive rsity of 00:00:00 [facility] Pneumococcal 7 2005-09-20 Completed [facility] of Conjugate, PCV7 00:00:00 [place] [facility] (Prevnar7) [facility] IPV 2005-09-20 Completed [facility] of 00:00:00 [facility] DTAP 2005-09-20 Completed [facility] of 00:00:00 [facility] HIB 3 Dose Schedule 2005-09-20 Completed Unive rsity of 00:00:00 [facility] Hepatitis A Adult 2005-09-20 Completed Univers ity of 00:00:00 [facility] Hep B, Adol or Pedi 2005-09-20 Completed Unive rsity of Dosage 00:00:00 [facility] Pneumococcal 13 2005-09-20 Completed Universit y of Conjugate, PCV13 00:00:00 [facility] (Prevnar 13) [place] Polio (IPV/OPV) 2005-09-20 Completed Universit y of 00:00:00 [facility] DTaP, Unspecified 2005-09-20 Completed Univers ity of Formulation 00:00:00 [facility] HEPATITIS A 2005-09-20 Completed [facility] of 00:00:00 [facility] HIB 4 Dose Schedule 2005-09-20 Completed Unive rsity of 00:00:00 [facility] Pneumococcal 7 2005-09-20 Completed [facility] of Conjugate, PCV7 00:00:00 [place] [facility] (Prevnar7) [facility] IPV 2005-09-20 Completed [facility] of 00:00:00 [facility] DTAP 2005-09-20 Completed [facility] of 00:00:00 [facility] HIB 3 Dose Schedule 2005-09-20 Completed Unive rsity of 00:00:00 [facility] Hepatitis A Adult 2005-09-20 Completed Univers ity of 00:00:00 [facility] Hep B, Adol or Pedi 2005-09-20 Completed Unive rsity of Dosage 00:00:00 [facility] Pneumococcal 13 2005-09-20 Completed Universit y of Conjugate, PCV13 00:00:00 [facility] dical (Prevnar 13) Branch Polio (IPV/OPV) 2005-09-20 Completed Universit y of 00:00:00 [facility] DTaP, Unspecified 2005-09-20 Completed Univers ity of Formulation 00:00:00 [facility] HEPATITIS A 2005-09-20 Completed [facility] of 00:00:00 [facility] HIB 4 Dose Schedule 2005-09-20 Completed Unive rsity of 00:00:00 [facility] Pneumococcal 7 2005-09-20 Completed University of Conjugate, PCV7 00:00:00 [facility] ical (Prevnar7) Branch IPV 2005-09-20 Completed University of 00:00:00 [facility] DTAP 2004-07-22 Completed University of 00:00:00 [facility] Hep B, Adol or Pedi 2004-07-22 Completed Unive rsity of Dosage 00:00:00 [facility] MMR 2004-07-22 Completed University of 00:00:00 [facility] Polio (IPV/OPV) 2004-07-22 Completed Universit y of 00:00:00 [facility] Varicella 2004-07-22 Completed University of (varivax)(chicken 00:00:00 [facility] edical pox) Branch DTAP 2004-07-22 Completed University of 00:00:00 [facility] Hep B, Adol or Pedi 2004-07-22 Completed Unive rsity of Dosage 00:00:00 [facility] MMR 2004-07-22 Completed University of 00:00:00 [facility] Polio (IPV/OPV) 2004-07-22 Completed Universit y of 00:00:00 [facility] Varicella 2004-07-22 Completed [facility] of (varivax)(chicken 00:00:00 [facility] edical pox) Branch DTAP 2004-07-22 Completed University of 00:00:00 [facility] Hep B, Adol or Pedi 2004-07-22 Completed Unive rsity of Dosage 00:00:00 [facility] MMR 2004-07-22 Completed [facility] of 00:00:00 [facility] Polio (IPV/OPV) 2004-07-22 Completed Universit y of 00:00:00 [facility] Varicella 2004-07-22 Completed [facility] of (varivax)(chicken 00:00:00 [place] [facility] pox) [facility] DTAP 2004-07-22 Completed [facility] of 00:00:00 [facility] Hep B, Adol or Pedi 2004-07-22 Completed Unive rsity of Dosage 00:00:00 [facility] MMR 2004-07-22 Completed University of 00:00:00 [facility] Polio (IPV/OPV) 2004-07-22 Completed Universit y of 00:00:00 [facility] Varicella 2004-07-22 Completed [facility] of (varivax)(chicken 00:00:00 [facility] edical pox) Branch DTAP 2004-07-22 Completed [facility] of 00:00:00 [facility] Hep B, Adol or Pedi 2004-07-22 Completed Unive rsity of Dosage 00:00:00 [facility] MMR 2004-07-22 Completed University of 00:00:00 [facility] Polio (IPV/OPV) 2004-07-22 Completed Universit y of 00:00:00 [facility] Varicella 2004-07-22 Completed [facility] of (varivax)(chicken 00:00:00 [facility] edical pox) Branch DTAP 2004-07-22 Completed [facility] of 00:00:00 [facility] Hep B, Adol or Pedi 2004-07-22 Completed Unive rsity of Dosage 00:00:00 [facility] MMR 2004-07-22 Completed [facility] of 00:00:00 [facility] Polio (IPV/OPV) 2004-07-22 Completed Universit y of 00:00:00 [facility] Varicella 2004-07-22 Completed [facility] of (varivax)(chicken 00:00:00 [facility] edical pox) Branch DTAP 2004-07-22 Completed University of 00:00:00 [facility] Hep B, Adol or Pedi 2004-07-22 Completed Unive rsity of Dosage 00:00:00 [facility] MMR 2004-07-22 Completed [facility] of 00:00:00 [facility] Polio (IPV/OPV) 2004-07-22 Completed Universit y of 00:00:00 [facility] Varicella 2004-07-22 Completed [facility] (varivax)(chicken 00:00:00 [place] [facility] pox) [facility] DTAP 2004-07-22 Completed [facility] of 00:00:00 [facility] Hep B, Adol or Pedi 2004-07-22 Completed Unive rsity of Dosage 00:00:00 [facility] MMR 2004-07-22 Completed University of 00:00:00 [facility] Polio (IPV/OPV) 2004-07-22 Completed Universit y of 00:00:00 [facility] Varicella 2004-07-22 Completed [facility] of (varivax)(chicken 00:00:00 [facility] edical pox) Branch DTAP 2004-07-22 Completed [facility] of 00:00:00 [facility] Hep B, Adol or Pedi 2004-07-22 Completed Unive rsity of Dosage 00:00:00 [facility] MMR 2004-07-22 Completed University of 00:00:00 [facility] Polio (IPV/OPV) 2004-07-22 Completed Universit y of 00:00:00 [facility] Varicella 2004-07-22 Completed [facility] (varivax)(chicken 00:00:00 [place] [facility] pox) [facility] DTAP 2004-07-22 Completed [facility] of 00:00:00 [facility] Hep B, Adol or Pedi 2004-07-22 Completed Unive rsity of Dosage 00:00:00 [facility] MMR 2004-07-22 Completed [facility] of 00:00:00 [facility] Polio (IPV/OPV) 2004-07-22 Completed Universit y of 00:00:00 [facility] Varicella 2004-07-22 Completed [facility] of (varivax)(chicken 00:00:00 [place] [facility] pox) [facility] DTAP 2004-07-22 Completed [facility] of 00:00:00 [facility] Hep B, Adol or Pedi 2004-07-22 Completed Unive rsity of Dosage 00:00:00 [facility] MMR 2004-07-22 Completed [facility] of 00:00:00 [facility] Polio (IPV/OPV) 2004-07-22 Completed Universit y of 00:00:00 [facility] Varicella 2004-07-22 Completed [facility] (varivax)(chicken 00:00:00 [place] [facility] pox) [facility] DTAP 2004-07-22 Completed [facility] of 00:00:00 [facility] Hep B, Adol or Pedi 2004-07-22 Completed Unive rsity of Dosage 00:00:00 [facility] MMR 2004-07-22 Completed [facility] of 00:00:00 [facility] Polio (IPV/OPV) 2004-07-22 Completed Universit y of 00:00:00 [facility] Varicella 2004-07-22 Completed [facility] (varivax)(chicken 00:00:00 [place] [facility] pox) [facility] DTAP 2004-07-22 Completed [facility] of 00:00:00 [facility] Hep B, Adol or Pedi 2004-07-22 Completed Unive rsity of Dosage 00:00:00 [facility] MMR 2004-07-22 Completed [facility] of 00:00:00 [facility] Polio (IPV/OPV) 2004-07-22 Completed Universit y of 00:00:00 [facility] Varicella 2004-07-22 Completed [facility] of (varivax)(chicken 00:00:00 [facility] edical pox) Branch DTAP 2004-07-22 Completed University of 00:00:00 [facility] Hep B, Adol or Pedi 2004-07-22 Completed Unive rsity of Dosage 00:00:00 [facility] MMR 2004-07-22 Completed University of 00:00:00 [facility] Polio (IPV/OPV) 2004-07-22 Completed [facility]it y of 00:00:00 [facility] Varicella 2004-07-22 Completed [facility] of (varivax)(chicken 00:00:00 [place] [facility] pox) [facility] DTAP 2004-07-22 Completed [facility] of 00:00:00 [facility] Hep B, Adol or Pedi 2004-07-22 Completed Unive rsity of Dosage 00:00:00 [facility] MMR 2004-07-22 Completed [facility] of 00:00:00 [facility] Polio (IPV/OPV) 2004-07-22 Completed Universit y of 00:00:00 [facility] Varicella 2004-07-22 Completed [facility] of (varivax)(chicken 00:00:00 [place] [facility] pox) [facility] DTAP 2004-07-22 Completed [facility] of 00:00:00 [facility] Hep B, Adol or Pedi 2004-07-22 Completed Unive rsity of Dosage 00:00:00 [facility] MMR 2004-07-22 Completed [facility] of 00:00:00 [facility] Polio (IPV/OPV) 2004-07-22 Completed Universit y of 00:00:00 [facility] Varicella 2004-07-22 Completed [facility] of (varivax)(chicken 00:00:00 [place] [facility] pox) [facility] DTAP 2004-07-22 Completed [facility] of 00:00:00 [facility] Hep B, Adol or Pedi 2004-07-22 Completed Unive rsity of Dosage 00:00:00 [facility] MMR 2004-07-22 Completed [facility] of 00:00:00 [facility] Polio (IPV/OPV) 2004-07-22 Completed Universit y of 00:00:00 [facility] Varicella 2004-07-22 Completed [facility] of (varivax)(chicken 00:00:00 [place] [facility] pox) Branch DTAP 2004-07-22 Completed [facility] of 00:00:00 [facility] Hep B, Adol or Pedi 2004-07-22 Completed Unive rsity of Dosage 00:00:00 [facility] MMR 2004-07-22 Completed University of 00:00:00 [facility] Polio (IPV/OPV) 2004-07-22 Completed Universit y of 00:00:00 [facility] Varicella 2004-07-22 Completed [facility] of (varivax)(chicken 00:00:00 [place] [facility] pox) Branch DTAP 2004-07-22 Completed [facility] of 00:00:00 [facility] Hep B, Adol or Pedi 2004-07-22 Completed Unive rsity of Dosage 00:00:00 [facility] MMR 2004-07-22 Completed [facility] of 00:00:00 [facility] Polio (IPV/OPV) 2004-07-22 Completed Universit y of 00:00:00 [facility] Varicella 2004-07-22 Completed [facility] of (varivax)(chicken 00:00:00 [place] [facility] pox) Branch DTAP 2004-07-22 Completed [facility] of 00:00:00 [facility] Hep B, Adol or Pedi 2004-07-22 Completed Unive rsity of Dosage 00:00:00 [facility] MMR 2004-07-22 Completed [facility] of 00:00:00 [facility] Polio (IPV/OPV) 2004-07-22 Completed Universit y of 00:00:00 [facility] Varicella 2004-07-22 Completed [facility] of (varivax)(chicken 00:00:00 [place] [facility] pox) Branch DTAP 2004-07-22 Completed [facility] of 00:00:00 [facility] Hep B, Adol or Pedi 2004-07-22 Completed Unive rsity of Dosage 00:00:00 [facility] MMR 2004-07-22 Completed [facility] of 00:00:00 [facility] Polio (IPV/OPV) 2004-07-22 Completed Universit y of 00:00:00 [facility] Varicella 2004-07-22 Completed [facility] (varivax)(chicken 00:00:00 [place] [facility] pox) [facility] DTAP 2004-07-22 Completed [facility] of 00:00:00 [facility] Hep B, Adol or Pedi 2004-07-22 Completed Unive rsity of Dosage 00:00:00 [facility] MMR 2004-07-22 Completed [facility] of 00:00:00 [facility] Polio (IPV/OPV) 2004-07-22 Completed Universit y of 00:00:00 [facility] Varicella 2004-07-22 Completed [facility] (varivax)(chicken 00:00:00 [place] [facility] pox) [facility] DTAP 2004-07-22 Completed [facility] of 00:00:00 [facility] Hep B, Adol or Pedi 2004-07-22 Completed Unive rsity of Dosage 00:00:00 [facility] MMR 2004-07-22 Completed [facility] of 00:00:00 [facility] Polio (IPV/OPV) 2004-07-22 Completed Universit y of 00:00:00 [facility] Varicella 2004-07-22 Completed [facility] (varivax)(chicken 00:00:00 [place] [facility] pox) [facility] DTAP 2004-07-22 Completed [facility] of 00:00:00 [facility] Hep B, Adol or Pedi 2004-07-22 Completed Unive rsity of Dosage 00:00:00 [facility] MMR 2004-07-22 Completed University of 00:00:00 [facility] Polio (IPV/OPV) 2004-07-22 Completed Universit y of 00:00:00 [facility] Varicella 2004-07-22 Completed [facility] of (varivax)(chicken 00:00:00 [place] [facility] pox) [facility] DTAP 2004-07-22 Completed [facility] of 00:00:00 [facility] Hep B, Adol or Pedi 2004-07-22 Completed Unive rsity of Dosage 00:00:00 [facility] MMR 2004-07-22 Completed University of 00:00:00 [facility] Polio (IPV/OPV) 2004-07-22 Completed Universit y of 00:00:00 [facility] Varicella 2004-07-22 Completed [facility] of (varivax)(chicken 00:00:00 [facility] edical pox) Branch DTAP 2004-07-22 Completed University of 00:00:00 [facility] Hep B, Adol or Pedi 2004-07-22 Completed Unive rsity of Dosage 00:00:00 [facility] MMR 2004-07-22 Completed University of 00:00:00 [facility] Polio (IPV/OPV) 2004-07-22 Completed Universit y of 00:00:00 [facility] Varicella 2004-07-22 Completed [facility] of (varivax)(chicken 00:00:00 [facility] edical pox) Branch DTAP 2004-07-22 Completed University of 00:00:00 [facility] Hep B, Adol or Pedi 2004-07-22 Completed Unive rsity of Dosage 00:00:00 [facility] MMR 2004-07-22 Completed University of 00:00:00 [facility] Polio (IPV/OPV) 2004-07-22 Completed Universit y of 00:00:00 [facility] Varicella 2004-07-22 Completed [facility] of (varivax)(chicken 00:00:00 [place] [facility] pox) [facility] DTAP 2004-07-22 Completed [facility] of 00:00:00 [facility] Hep B, Adol or Pedi 2004-07-22 Completed Unive rsity of Dosage 00:00:00 [facility] MMR 2004-07-22 Completed University of 00:00:00 [facility] Polio (IPV/OPV) 2004-07-22 Completed Universit y of 00:00:00 [facility] Varicella 2004-07-22 Completed University of (varivax)(chicken 00:00:00 [facility] edical pox) Branch DTAP 2004-07-22 Completed University of 00:00:00 [facility] Hep B, Adol or Pedi 2004-07-22 Completed Unive rsity of Dosage 00:00:00 [facility] MMR 2004-07-22 Completed University of 00:00:00 [facility] Polio (IPV/OPV) 2004-07-22 Completed Universit y of 00:00:00 [facility] Varicella 2004-07-22 Completed [facility] of (varivax)(chicken 00:00:00 [place] [facility] pox) [facility] DTAP 2004-07-22 Completed [facility] of 00:00:00 [facility] Hep B, Adol or Pedi 2004-07-22 Completed Unive rsity of Dosage 00:00:00 [facility] MMR 2004-07-22 Completed University of 00:00:00 [facility] Polio (IPV/OPV) 2004-07-22 Completed Universit y of 00:00:00 [facility] Varicella 2004-07-22 Completed [facility] of (varivax)(chicken 00:00:00 [place] [facility] pox) [facility] DTAP 2004-07-22 Completed [facility] of 00:00:00 [facility] Hep B, Adol or Pedi 2004-07-22 Completed Unive rsity of Dosage 00:00:00 [facility] MMR 2004-07-22 Completed University of 00:00:00 [facility] Polio (IPV/OPV) 2004-07-22 Completed Universit y of 00:00:00 [facility] Varicella 2004-07-22 Completed [facility] of (varivax)(chicken 00:00:00 [place] [facility] pox) [facility] DTAP 2004-07-22 Completed [facility] of 00:00:00 [facility] Hep B, Adol or Pedi 2004-07-22 Completed Unive rsity of Dosage 00:00:00 [facility] MMR 2004-07-22 Completed University of 00:00:00 [facility] Polio (IPV/OPV) 2004-07-22 Completed Universit y of 00:00:00 [facility] Varicella 2004-07-22 Completed [facility] of (varivax)(chicken 00:00:00 [place] [facility] pox) [facility] DTAP 2004-07-22 Completed [facility] of 00:00:00 [facility] Hep B, Adol or Pedi 2004-07-22 Completed Unive rsity of Dosage 00:00:00 [facility] MMR 2004-07-22 Completed University of 00:00:00 [facility] Polio (IPV/OPV) 2004-07-22 Completed Universit y of 00:00:00 [facility] Varicella 2004-07-22 Completed [facility] of (varivax)(chicken 00:00:00 [place] [facility] pox) [facility] DTAP 2004-07-22 Completed University of 00:00:00 [facility] Hep B, Adol or Pedi 2004-07-22 Completed Unive rsity of Dosage 00:00:00 [facility] MMR 2004-07-22 Completed University of 00:00:00 [facility] Polio (IPV/OPV) 2004-07-22 Completed Universit y of 00:00:00 [facility] Varicella 2004-07-22 Completed University of (varivax)(chicken 00:00:00 [facility] edical pox) Branch DTAP 2004-07-22 Completed University of 00:00:00 [facility] Hep B, Adol or Pedi 2004-07-22 Completed Unive rsity of Dosage 00:00:00 [facility] MMR 2004-07-22 Completed University of 00:00:00 [facility] Polio (IPV/OPV) 2004-07-22 Completed Universit y of 00:00:00 [facility] Varicella 2004-07-22 Completed [facility] of (varivax)(chicken 00:00:00 [place] [facility] pox) [facility] DTAP 2004-07-22 Completed [facility] of 00:00:00 [facility] Hep B, Adol or Pedi 2004-07-22 Completed Unive rsity of Dosage 00:00:00 [facility] MMR 2004-07-22 Completed University of 00:00:00 [facility] Polio (IPV/OPV) 2004-07-22 Completed Universit y of 00:00:00 [facility] Varicella 2004-07-22 Completed [facility] of (varivax)(chicken 00:00:00 [place] [facility] pox) [facility] DTAP 2004-07-22 Completed [facility] of 00:00:00 [facility] Hep B, Adol or Pedi 2004-07-22 Completed Unive rsity of Dosage 00:00:00 [facility] MMR 2004-07-22 Completed [facility] 00:00:00 [facility] Polio (IPV/OPV) 2004-07-22 Completed Universit y of 00:00:00 [facility] Varicella 2004-07-22 Completed [facility] of (varivax)(chicken 00:00:00 [place] [facility] pox) [facility] DTAP 2004-07-22 Completed [facility] of 00:00:00 [facility] Hep B, Adol or Pedi 2004-07-22 Completed Unive rsity of Dosage 00:00:00 [facility] MMR 2004-07-22 Completed University of 00:00:00 [facility] Polio (IPV/OPV) 2004-07-22 Completed Universit y of 00:00:00 [facility] Varicella 2004-07-22 Completed University of (varivax)(chicken 00:00:00 [facility] edical pox) Branch DTaP, Unspecified 2004-07-22 Completed Univers ity of Formulation 00:00:00 [facility] IPV 2004-07-22 Completed University of 00:00:00 [facility] DTAP 2004-07-22 Completed University of 00:00:00 [facility] Hep B, Adol or Pedi 2004-07-22 Completed Unive rsity of Dosage 00:00:00 [facility] MMR 2004-07-22 Completed University of 00:00:00 [facility] Polio (IPV/OPV) 2004-07-22 Completed Universit y of 00:00:00 [facility] Varicella 2004-07-22 Completed University of (varivax)(chicken 00:00:00 [facility] edical pox) Branch DTaP, Unspecified 2004-07-22 Completed Univers ity of Formulation 00:00:00 [facility] IPV 2004-07-22 Completed [facility] 00:00:00 [facility] DTAP 2004-07-22 Completed [facility] of 00:00:00 [facility] Hep B, Adol or Pedi 2004-07-22 Completed Unive rsity of Dosage 00:00:00 [facility] MMR 2004-07-22 Completed [facility] of 00:00:00 [facility] Polio (IPV/OPV) 2004-07-22 Completed [facility]it [facility] 00:00:00 [facility] Varicella 2004-07-22 Completed [facility] of (varivax)(chicken 00:00:00 [place] [facility] DTaP, Unspecified 2004-07-22 Completed [facility] it[facility] Formulation 00:00:00 [facility] IPV 2004-07-22 Completed [facility] of 00:00:00 [facility] DTAP 2004-07-22 Completed [facility] of 00:00:00 [facility] Hep B, Adol or Pedi 2004-07-22 Completed Unive rsity of Dosage 00:00:00 [facility] MMR 2004-07-22 Completed [facility] of 00:00:00 [facility] Polio (IPV/OPV) 2004-07-22 Completed [facility]it [facility] 00:00:00 [facility] Varicella 2004-07-22 Completed [facility] of (varivax)(chicken 00:00:00 [facility] edical pox) Branch DTaP, Unspecified 2004-07-22 Completed Univers ity of Formulation 00:00:00 [facility] IPV 2004-07-22 Completed [facility] 00:00:00 [facility] DTAP 2004-07-22 Completed [facility] of 00:00:00 [facility] Hep B, Adol or Pedi 2004-07-22 Completed Unive rsity of Dosage 00:00:00 [facility] MMR 2004-07-22 Completed [facility] 00:00:00 [facility] Polio (IPV/OPV) 2004-07-22 Completed [facility] 00:00:00 [facility] Varicella 2004-07-22 Completed [facility] (varivax)([place]icken 00:00:00 [place] [facility] DTaP, Unspecified 2004-07-22 Completed [facility] ity of Formulation 00:00:00 [facility] IPV 2004-07-22 Completed [facility] 00:00:00 [facility] DTAP 2004-07-22 Completed [facility] of 00:00:00 [facility] Hep B, Adol or Pedi 2004-07-22 Completed Unive rsity of Dosage 00:00:00 [facility] MMR 2004-07-22 Completed [facility] 00:00:00 [facility] Polio (IPV/OPV) 2004-07-22 Completed [facility]it [facility] 00:00:00 [facility] Varicella 2004-07-22 Completed [facility] of (varivax)(chicken 00:00:00 [place] [facility] DTaP, Unspecified 2004-07-22 Completed [facility] ity of Formulation 00:00:00 [facility] IPV 2004-07-22 Completed [facility] 00:00:00 [facility] DTAP 2004-07-22 Completed [facility] 00:00:00 [facility] Hep B, Adol or Pedi 2004-07-22 Completed Unive rsity of Dosage 00:00:00 [facility] MMR 2004-07-22 Completed [facility] of 00:00:00 [facility] Polio (IPV/OPV) 2004-07-22 Completed [facility] 00:00:00 [facility] Varicella 2004-07-22 Completed [facility] (varivax)(chicken 00:00:00 [place] [facility] DTaP, Unspecified 2004-07-22 Completed Univers ity of Formulation 00:00:00 [facility] IPV 2004-07-22 Completed [facility] of 00:00:00 [facility] DTAP 2004-07-22 Completed [facility] 00:00:00 [facility] Hep B, Adol or Pedi 2004-07-22 Completed Unive rsity of Dosage 00:00:00 [facility] MMR 2004-07-22 Completed [facility] of 00:00:00 [facility] Polio (IPV/OPV) 2004-07-22 Completed [facility] 00:00:00 [facility] Varicella 2004-07-22 Completed [facility] (varivax)(chicken 00:00:00 [place] [facility] DTaP, Unspecified 2004-07-22 Completed Univers ity of Formulation 00:00:00 [facility] IPV 2004-07-22 Completed [facility] of 00:00:00 [facility] DTAP 2004-07-22 Completed [facility] 00:00:00 [facility] Hep B, Adol or Pedi 2004-07-22 Completed Unive rsity of Dosage 00:00:00 [facility] MMR 2004-07-22 Completed [facility] of 00:00:00 [facility] Polio (IPV/OPV) 2004-07-22 Completed [facility] of 00:00:00 [facility] Varicella 2004-07-22 Completed [facility] of (varivax)(chicken 00:00:00 [facility] edical pox) Branch DTaP, Unspecified 2004-07-22 Completed Univers ity of Formulation 00:00:00 [facility] IPV 2004-07-22 Completed [facility] of 00:00:00 [facility] DTAP 2004-07-22 Completed [facility] of 00:00:00 [facility] Hep B, Adol or Pedi 2004-07-22 Completed Unive rsity of Dosage 00:00:00 [facility] MMR 2004-07-22 Completed [facility] 00:00:00 [facility] Polio (IPV/OPV) 2004-07-22 Completed [facility] 00:00:00 [facility] Varicella 2004-07-22 Completed [facility] of (varivax)(chicken 00:00:00 [place] [facility] DTaP, Unspecified 2004-07-22 Completed [facility] ity of Formulation 00:00:00 [facility] IPV 2004-07-22 Completed [facility] of 00:00:00 [facility] DTAP 2004-07-22 Completed [facility] of 00:00:00 [facility] Hep B, Adol or Pedi 2004-07-22 Completed Unive rsity of Dosage 00:00:00 [facility] MMR 2004-07-22 Completed [facility] of 00:00:00 [facility] Polio (IPV/OPV) 2004-07-22 Completed [facility] 00:00:00 [facility] Varicella 2004-07-22 Completed [facility] (varivax)(chicken 00:00:00 [place] [facility] DTaP, Unspecified 2004-07-22 Completed [facility] ity of Formulation 00:00:00 [facility] IPV 2004-07-22 Completed [facility] of 00:00:00 [facility] DTAP 2004-07-22 Completed [facility] of 00:00:00 [facility] Hep B, Adol or Pedi 2004-07-22 Completed Unive rsity of Dosage 00:00:00 [facility] MMR 2004-07-22 Completed [facility] of 00:00:00 [facility] Polio (IPV/OPV) 2004-07-22 Completed [facility] of 00:00:00 [facility] Varicella 2004-07-22 Completed [facility] of (varivax)(chicken 00:00:00 [place] [facility] DTaP, Unspecified 2004-07-22 Completed Univers ity of Formulation 00:00:00 [facility] IPV 2004-07-22 Completed [facility] 00:00:00 [facility] DTAP 2004-07-22 Completed [facility] 00:00:00 [facility] Hep B, Adol or Pedi 2004-07-22 Completed Unive rsity of Dosage 00:00:00 [facility] MMR 2004-07-22 Completed [facility] of 00:00:00 [facility] Polio (IPV/OPV) 2004-07-22 Completed [facility] of 00:00:00 [facility] Varicella 2004-07-22 Completed [facility] of (varivax)(chicken 00:00:00 [place] [facility] DTaP, Unspecified 2004-07-22 Completed [facility] ity of Formulation 00:00:00 [facility] IPV 2004-07-22 Completed [facility] of 00:00:00 [facility] DTAP 2004-07-22 Completed [facility] 00:00:00 [facility] Hep B, Adol or Pedi 2004-07-22 Completed Unive rsity of Dosage 00:00:00 [facility] MMR 2004-07-22 Completed [facility] of 00:00:00 [facility] Polio (IPV/OPV) 2004-07-22 Completed [facility] of 00:00:00 [facility] Varicella 2004-07-22 Completed [facility] of (varivax)(chicken 00:00:00 [place] [facility] DTaP, Unspecified 2004-07-22 Completed Univers ity of Formulation 00:00:00 [facility] IPV 2004-07-22 Completed [facility] of 00:00:00 [facility] DTAP 2004-07-22 Completed [facility] of 00:00:00 [facility] Hep B, Adol or Pedi 2004-07-22 Completed Unive rsity of Dosage 00:00:00 [facility] MMR 2004-07-22 Completed [facility] of 00:00:00 [facility] Polio (IPV/OPV) 2004-07-22 Completed [facility]it [facility] of 00:00:00 [facility] Varicella 2004-07-22 Completed [facility] of (varivax)(chicken 00:00:00 [facility] edical pox) Branch DTaP, Unspecified 2004-07-22 Completed Univers ity of Formulation 00:00:00 [facility] IPV 2004-07-22 Completed [facility] of 00:00:00 [facility] DTAP 2004-07-22 Completed [facility] of 00:00:00 [facility] Hep B, Adol or Pedi 2004-07-22 Completed Unive rsity of Dosage 00:00:00 [facility] MMR 2004-07-22 Completed [facility] of 00:00:00 [facility] Polio (IPV/OPV) 2004-07-22 Completed [facility] of 00:00:00 [facility] Varicella 2004-07-22 Completed [facility] of (varivax)(chicken 00:00:00 [place] [facility] DTaP, Unspecified 2004-07-22 Completed Univers ity of Formulation 00:00:00 [facility] IPV 2004-07-22 Completed [facility] of 00:00:00 [facility] DTAP 2004-07-22 Completed [facility] of 00:00:00 [facility] Hep B, Adol or Pedi 2004-07-22 Completed Unive rsity of Dosage 00:00:00 [facility] MMR 2004-07-22 Completed [facility] of 00:00:00 [facility] Polio (IPV/OPV) 2004-07-22 Completed [facility] of 00:00:00 [facility] Varicella 2004-07-22 Completed [facility] of (varivax)(chicken 00:00:00 [facility] edical pox) Branch DTaP, Unspecified 2004-07-22 Completed Univers ity of Formulation 00:00:00 [facility] IPV 2004-07-22 Completed [facility] of 00:00:00 [facility] DTAP 2004-07-22 Completed [facility] of 00:00:00 [facility] Hep B, Adol or Pedi 2004-07-22 Completed Unive rsity of Dosage 00:00:00 [facility] MMR 2004-07-22 Completed [facility] of 00:00:00 [facility] Polio (IPV/OPV) 2004-07-22 Completed [facility] of 00:00:00 [facility] Varicella 2004-07-22 Completed [facility] of (varivax)(chicken 00:00:00 [facility] edical pox) Branch DTaP, Unspecified 2004-07-22 Completed Univers ity of Formulation 00:00:00 [facility] IPV 2004-07-22 Completed [facility] of 00:00:00 [facility] DTAP 2004-07-22 Completed [facility] of 00:00:00 [facility] Hep B, Adol or Pedi 2004-07-22 Completed Unive rsity of Dosage 00:00:00 [facility] MMR 2004-07-22 Completed [facility] of 00:00:00 [facility] Polio (IPV/OPV) 2004-07-22 Completed [facility] of 00:00:00 [facility] Varicella 2004-07-22 Completed [facility] of (varivax)(chicken 00:00:00 [place] [facility] DTaP, Unspecified 2004-07-22 Completed [facility] ity of Formulation 00:00:00 [facility] IPV 2004-07-22 Completed [facility] of 00:00:00 [facility] DTAP 2003-06-04 Completed [facility] of 00:00:00 [facility] HIB 3 Dose Schedule 2003-06-04 Completed Unive rsity of 00:00:00 [facility] Hep B, Adol or Pedi 2003-06-04 Completed Unive rsity of Dosage 00:00:00 [facility] MMR 2003-06-04 Completed [facility] of 00:00:00 [facility] Polio (IPV/OPV) 2003-06-04 Completed [facility]it [facility] of 00:00:00 [facility] Varicella 2003-06-04 Completed [facility] of (varivax)(chicken 00:00:00 [facility] edical pox) Branch DTAP 2003-06-04 Completed [facility] of 00:00:00 [facility] HIB 3 Dose Schedule 2003-06-04 Completed Unive rsity of 00:00:00 [facility] Hep B, Adol or Pedi 2003-06-04 Completed Unive rsity of Dosage 00:00:00 [facility] MMR 2003-06-04 Completed [facility] of 00:00:00 [facility] Polio (IPV/OPV) 2003-06-04 Completed [facility] of 00:00:00 [facility] Varicella 2003-06-04 Completed [facility] of (varivax)(chicken 00:00:00 [place] [facility] DTAP 2003-06-04 Completed [facility] 00:00:00 [facility] HIB 3 Dose Schedule 2003-06-04 Completed Unive rsity of 00:00:00 [facility] Hep B, Adol or Pedi 2003-06-04 Completed Unive rsity of Dosage 00:00:00 [facility] MMR 2003-06-04 Completed [facility] of 00:00:00 [facility] Polio (IPV/OPV) 2003-06-04 Completed [facility] of 00:00:00 [facility] Varicella 2003-06-04 Completed [facility] of (varivax)(chicken 00:00:00 [place] [facility] DTAP 2003-06-04 Completed [facility] 00:00:00 [facility] HIB 3 Dose Schedule 2003-06-04 Completed Unive rsity of 00:00:00 [facility] Hep B, Adol or Pedi 2003-06-04 Completed Unive rsity of Dosage 00:00:00 [facility] MMR 2003-06-04 Completed [facility] of 00:00:00 [facility] Polio (IPV/OPV) 2003-06-04 Completed [facility]it [facility] of 00:00:00 [facility] Varicella 2003-06-04 Completed [facility] (varivax)(chicken 00:00:00 [place] [facility] DTAP 2003-06-04 Completed [facility] 00:00:00 [facility] HIB 3 Dose Schedule 2003-06-04 Completed Unive rsity of 00:00:00 [facility] Hep B, Adol or Pedi 2003-06-04 Completed Unive rsity of Dosage 00:00:00 [facility] MMR 2003-06-04 Completed [facility] of 00:00:00 [facility] Polio (IPV/OPV) 2003-06-04 Completed [facility] of 00:00:00 [facility] Varicella 2003-06-04 Completed [facility] of (varivax)(chicken 00:00:00 [place] [facility] DTAP 2003-06-04 Completed [facility] 00:00:00 [facility] HIB 3 Dose Schedule 2003-06-04 Completed Unive rsity of 00:00:00 [facility] Hep B, Adol or Pedi 2003-06-04 Completed Unive rsity of Dosage 00:00:00 [facility] MMR 2003-06-04 Completed [facility] of 00:00:00 [facility] Polio (IPV/OPV) 2003-06-04 Completed [facility]it y of 00:00:00 [facility] Varicella 2003-06-04 Completed [facility] of (varivax)(chicken 00:00:00 [place] [facility] DTAP 2003-06-04 Completed [facility] 00:00:00 [facility] HIB 3 Dose Schedule 2003-06-04 Completed Unive rsity of 00:00:00 [facility] Hep B, Adol or Pedi 2003-06-04 Completed Unive rsity of Dosage 00:00:00 [facility] MMR 2003-06-04 Completed [facility] of 00:00:00 [facility] Polio (IPV/OPV) 2003-06-04 Completed [facility]it [facility] of 00:00:00 [facility] Varicella 2003-06-04 Completed [facility] (varivax)(chicken 00:00:00 [place] [facility] DTAP 2003-06-04 Completed [facility] 00:00:00 [facility] HIB 3 Dose Schedule 2003-06-04 Completed Unive rsity of 00:00:00 [facility] Hep B, Adol or Pedi 2003-06-04 Completed Unive rsity of Dosage 00:00:00 [facility] MMR 2003-06-04 Completed [facility] of 00:00:00 [facility] Polio (IPV/OPV) 2003-06-04 Completed [facility]it y of 00:00:00 [facility] Varicella 2003-06-04 Completed [facility] of (varivax)(chicken 00:00:00 [place] [facility] DTAP 2003-06-04 Completed [facility] 00:00:00 [facility] HIB 3 Dose Schedule 2003-06-04 Completed Unive rsity of 00:00:00 [facility] Hep B, Adol or Pedi 2003-06-04 Completed Unive rsity of Dosage 00:00:00 [facility] MMR 2003-06-04 Completed [facility] of 00:00:00 [facility] Polio (IPV/OPV) 2003-06-04 Completed [facility]it y of 00:00:00 [facility] Varicella 2003-06-04 Completed [facility] (varivax)(chicken 00:00:00 [place] [facility] DTAP 2003-06-04 Completed [facility] 00:00:00 [facility] HIB 3 Dose Schedule 2003-06-04 Completed Unive rsity of 00:00:00 [facility] Hep B, Adol or Pedi 2003-06-04 Completed Unive rsity of Dosage 00:00:00 [facility] MMR 2003-06-04 Completed [facility] of 00:00:00 [facility] Polio (IPV/OPV) 2003-06-04 Completed Universit y of 00:00:00 [facility] Varicella 2003-06-04 Completed [facility] of (varivax)(chicken 00:00:00 [place] [facility] DTAP 2003-06-04 Completed [facility] 00:00:00 [facility] HIB 3 Dose Schedule 2003-06-04 Completed Unive rsity of 00:00:00 [facility] Hep B, Adol or Pedi 2003-06-04 Completed Unive rsity of Dosage 00:00:00 [facility] MMR 2003-06-04 Completed [facility] of 00:00:00 [facility] Polio (IPV/OPV) 2003-06-04 Completed [facility]it [facility] of 00:00:00 [facility] Varicella 2003-06-04 Completed [facility] of (varivax)(chicken 00:00:00 [place] [facility] DTAP 2003-06-04 Completed [facility] 00:00:00 [facility] HIB 3 Dose Schedule 2003-06-04 Completed Unive rsity of 00:00:00 [facility] Hep B, Adol or Pedi 2003-06-04 Completed Unive rsity of Dosage 00:00:00 [facility] MMR 2003-06-04 Completed [facility] of 00:00:00 [facility] Polio (IPV/OPV) 2003-06-04 Completed [facility] of 00:00:00 [facility] Varicella 2003-06-04 Completed [facility] of (varivax)(chicken 00:00:00 [place] [facility] DTAP 2003-06-04 Completed [facility] 00:00:00 [facility] HIB 3 Dose Schedule 2003-06-04 Completed Unive rsity of 00:00:00 [facility] Hep B, Adol or Pedi 2003-06-04 Completed Unive rsity of Dosage 00:00:00 [facility] MMR 2003-06-04 Completed [facility] of 00:00:00 [facility] Polio (IPV/OPV) 2003-06-04 Completed [facility] of 00:00:00 [facility] Varicella 2003-06-04 Completed [facility] of (varivax)(chicken 00:00:00 [place] [facility] DTAP 2003-06-04 Completed [facility] 00:00:00 [facility] HIB 3 Dose Schedule 2003-06-04 Completed Unive rsity of 00:00:00 [facility] Hep B, Adol or Pedi 2003-06-04 Completed Unive rsity of Dosage 00:00:00 [facility] MMR 2003-06-04 Completed [facility] of 00:00:00 [facility] Polio (IPV/OPV) 2003-06-04 Completed [facility] of 00:00:00 [facility] Varicella 2003-06-04 Completed [facility] (varivax)(chicken 00:00:00 [place] [facility] DTAP 2003-06-04 Completed [facility] 00:00:00 [facility] HIB 3 Dose Schedule 2003-06-04 Completed Unive rsity of 00:00:00 [facility] Hep B, Adol or Pedi 2003-06-04 Completed Unive rsity of Dosage 00:00:00 [facility] MMR 2003-06-04 Completed [facility] of 00:00:00 [facility] Polio (IPV/OPV) 2003-06-04 Completed [facility] of 00:00:00 [facility] Varicella 2003-06-04 Completed [facility] of (varivax)(chicken 00:00:00 [place] [facility] DTAP 2003-06-04 Completed [facility] 00:00:00 [facility] HIB 3 Dose Schedule 2003-06-04 Completed Unive rsity of 00:00:00 [facility] Hep B, Adol or Pedi 2003-06-04 Completed Unive rsity of Dosage 00:00:00 [facility] MMR 2003-06-04 Completed [facility] of 00:00:00 [facility] Polio (IPV/OPV) 2003-06-04 Completed [facility] of 00:00:00 [facility] Varicella 2003-06-04 Completed [facility] of (varivax)(chicken 00:00:00 [place] [facility] DTAP 2003-06-04 Completed [facility] 00:00:00 [facility] HIB 3 Dose Schedule 2003-06-04 Completed Unive rsity of 00:00:00 [facility] Hep B, Adol or Pedi 2003-06-04 Completed Unive rsity of Dosage 00:00:00 [facility] MMR 2003-06-04 Completed [facility] of 00:00:00 [facility] Polio (IPV/OPV) 2003-06-04 Completed [facility] 00:00:00 [facility] Varicella 2003-06-04 Completed [facility] of (varivax)(chicken 00:00:00 [place] [facility] DTAP 2003-06-04 Completed [facility] 00:00:00 [facility] HIB 3 Dose Schedule 2003-06-04 Completed Unive rsity of 00:00:00 [facility] Hep B, Adol or Pedi 2003-06-04 Completed Unive rsity of Dosage 00:00:00 [facility] MMR 2003-06-04 Completed [facility] of 00:00:00 [facility] Polio (IPV/OPV) 2003-06-04 Completed [facility] 00:00:00 [facility] Varicella 2003-06-04 Completed [facility] (varivax)(chicken 00:00:00 [place] [facility] DTAP 2003-06-04 Completed [facility] 00:00:00 [facility] HIB 3 Dose Schedule 2003-06-04 Completed Unive rsity of 00:00:00 [facility] Hep B, Adol or Pedi 2003-06-04 Completed Unive rsity of Dosage 00:00:00 [facility] MMR 2003-06-04 Completed [facility] of 00:00:00 [facility] Polio (IPV/OPV) 2003-06-04 Completed Universit y of 00:00:00 [facility] Varicella 2003-06-04 Completed [facility] (varivax)(chicken 00:00:00 [place] [facility] DTAP 2003-06-04 Completed [facility] 00:00:00 [facility] HIB 3 Dose Schedule 2003-06-04 Completed [facility]ive rsity of 00:00:00 [facility] Hep B, Adol or Pedi 2003-06-04 Completed [facility]ive [facility] of Dosage 00:00:00 [facility] MMR 2003-06-04 Completed [facility] 00:00:00 [facility] Polio (IPV/OPV) 2003-06-04 Completed [facility] 00:00:00 [facility] Varicella 2003-06-04 Completed [facility] (varivax[facility]icken 00:00:00 [place] [facility] DTAP 2003-06-04 Completed [facility] 00:00:00 [facility] HIB 3 Dose Schedule 2003-06-04 Completed [facility]ive rs[facility] of 00:00:00 [facility] Hep B, Adol or Pedi 2003-06-04 Completed [facility] of Dosage 00:00:00 [facility] MMR 2003-06-04 Completed [facility] 00:00:00 [facility] Polio (IPV/OPV) 2003-06-04 Completed [facility] 00:00:00 [facility] Varicella 2003-06-04 Completed [facility] (varivax[facility]chicken 00:00:00 [place] [facility] DTAP 2003-06-04 Completed [facility] 00:00:00 [facility] HIB 3 Dose Schedule 2003-06-04 Completed [facility]ive rs[facility] of 00:00:00 [facility] Hep B, Adol or Pedi 2003-06-04 Completed [facility] of Dosage 00:00:00 [facility] MMR 2003-06-04 Completed [facility] 00:00:00 [facility] Polio (IPV/OPV) 2003-06-04 Completed [facility] 00:00:00 [facility] Varicella 2003-06-04 Completed [facility] (varivax)(chicken 00:00:00 [place] [facility] DTAP 2003-06-04 Completed [facility] 00:00:00 [facility] HIB 3 Dose Schedule 2003-06-04 Completed [facility]ive rs[facility] of 00:00:00 [facility] Hep B, Adol or Pedi 2003-06-04 Completed [facility] of Dosage 00:00:00 [facility] MMR 2003-06-04 Completed [facility] 00:00:00 [facility] Polio (IPV/OPV) 2003-06-04 Completed [facility] 00:00:00 [facility] Varicella 2003-06-04 Completed [facility] (varivax)([facility]icken 00:00:00 [place] [facility] DTAP 2003-06-04 Completed [facility] 00:00:00 [facility] HIB 3 Dose Schedule 2003-06-04 Completed [facility]ive rs[facility] of 00:00:00 [facility] Hep B, Adol or Pedi 2003-06-04 Completed [facility] of Dosage 00:00:00 [facility] MMR 2003-06-04 Completed [facility] 00:00:00 [facility] Polio (IPV/OPV) 2003-06-04 Completed [facility] 00:00:00 [facility] Varicella 2003-06-04 Completed [facility] (varivax)(chicken 00:00:00 [place] [facility] DTAP 2003-06-04 Completed [facility] 00:00:00 [facility] HIB 3 Dose Schedule 2003-06-04 Completed [facility]ive rs[facility] of 00:00:00 [facility] Hep B, Adol or Pedi 2003-06-04 Completed [facility] of Dosage 00:00:00 [facility] MMR 2003-06-04 Completed [facility] 00:00:00 [facility] Polio (IPV/OPV) 2003-06-04 Completed [facility] 00:00:00 [facility] Varicella 2003-06-04 Completed [facility] (varivax)(chicken 00:00:00 [place] [facility] DTAP 2003-06-04 Completed [facility] 00:00:00 [facility] HIB 3 Dose Schedule 2003-06-04 Completed [facility]ive rsity of 00:00:00 [facility] Hep B, Adol or Pedi 2003-06-04 Completed [facility] of Dosage 00:00:00 [facility] MMR 2003-06-04 Completed [facility] 00:00:00 [facility] Polio (IPV/OPV) 2003-06-04 Completed [facility] 00:00:00 [facility] Varicella 2003-06-04 Completed [facility] (varivax)(chicken 00:00:00 [place] [facility] DTAP 2003-06-04 Completed [facility] 00:00:00 [facility] HIB 3 Dose Schedule 2003-06-04 Completed [facility]ive rsity of 00:00:00 [facility] Hep B, Adol or Pedi 2003-06-04 Completed [facility] rs[facility] of Dosage 00:00:00 [facility] MMR 2003-06-04 Completed [facility] 00:00:00 [facility] Polio (IPV/OPV) 2003-06-04 Completed [facility] 00:00:00 [facility] Varicella 2003-06-04 Completed [facility] (varivax)(chicken 00:00:00 [place] [facility] DTAP 2003-06-04 Completed [facility] 00:00:00 [facility] HIB 3 Dose Schedule 2003-06-04 Completed [facility]ive rs[facility] of 00:00:00 [facility] Hep B, Adol or Pedi 2003-06-04 Completed [facility] rs[facility] of Dosage 00:00:00 [facility] MMR 2003-06-04 Completed [facility] 00:00:00 [facility] Polio (IPV/OPV) 2003-06-04 Completed [facility] 00:00:00 [facility] Varicella 2003-06-04 Completed [facility] (varivax)(chicken 00:00:00 [place] [facility] DTAP 2003-06-04 Completed [facility] 00:00:00 [facility] HIB 3 Dose Schedule 2003-06-04 Completed [facility]ive rsity of 00:00:00 [facility] Hep B, Adol or Pedi 2003-06-04 Completed [facility]ive rsity of Dosage 00:00:00 [facility] MMR 2003-06-04 Completed [facility] 00:00:00 [facility] Polio (IPV/OPV) 2003-06-04 Completed [facility] 00:00:00 [facility] Varicella 2003-06-04 Completed [facility] (varivax)(chicken 00:00:00 [place] [facility] DTAP 2003-06-04 Completed [facility] 00:00:00 [facility] HIB 3 Dose Schedule 2003-06-04 Completed [facility]ive rsity of 00:00:00 [facility] Hep B, Adol or Pedi 2003-06-04 Completed [facility]ive rsity of Dosage 00:00:00 [facility] MMR 2003-06-04 Completed [facility] 00:00:00 [facility] Polio (IPV/OPV) 2003-06-04 Completed [facility] 00:00:00 [facility] Varicella 2003-06-04 Completed [facility] (varivax)(chicken 00:00:00 [place] [facility] DTAP 2003-06-04 Completed [facility] 00:00:00 [facility] HIB 3 Dose Schedule 2003-06-04 Completed [facility]ive rsity of 00:00:00 [facility] Hep B, Adol or Pedi 2003-06-04 Completed [facility]ive rsity of Dosage 00:00:00 [facility] MMR 2003-06-04 Completed [facility] 00:00:00 [facility] Polio (IPV/OPV) 2003-06-04 Completed [facility] 00:00:00 [facility] Varicella 2003-06-04 Completed [facility] (varivax)(chicken 00:00:00 [place] [facility] DTAP 2003-06-04 Completed [facility] 00:00:00 [facility] HIB 3 Dose Schedule 2003-06-04 Completed [facility]ive rsity of 00:00:00 [facility] Hep B, Adol or Pedi 2003-06-04 Completed [facility]ive rsity of Dosage 00:00:00 [facility] MMR 2003-06-04 Completed [facility] 00:00:00 [facility] Polio (IPV/OPV) 2003-06-04 Completed [facility] 00:00:00 [facility] Varicella 2003-06-04 Completed [facility] (varivax)(chicken 00:00:00 [place] [facility] DTAP 2003-06-04 Completed [facility] 00:00:00 [facility] HIB 3 Dose Schedule 2003-06-04 Completed [facility]ive rsity of 00:00:00 [facility] Hep B, Adol or Pedi 2003-06-04 Completed [facility]ive rsity of Dosage 00:00:00 [facility] MMR 2003-06-04 Completed [facility] 00:00:00 [facility] Polio (IPV/OPV) 2003-06-04 Completed [facility] 00:00:00 [facility] Varicella 2003-06-04 Completed [facility] (varivax)(chicken 00:00:00 [place] [facility] DTAP 2003-06-04 Completed [facility] 00:00:00 [facility] HIB 3 Dose Schedule 2003-06-04 Completed Unive rsity of 00:00:00 [facility] Hep B, Adol or Pedi 2003-06-04 Completed [facility]ive rsity of Dosage 00:00:00 [facility] MMR 2003-06-04 Completed [facility] 00:00:00 [facility] Polio (IPV/OPV) 2003-06-04 Completed [facility] 00:00:00 [facility] Varicella 2003-06-04 Completed [facility] (varivax)(chicken 00:00:00 [place] [facility] DTAP 2003-06-04 Completed [facility] 00:00:00 [facility] HIB 3 Dose Schedule 2003-06-04 Completed [facility]ive rsity of 00:00:00 [facility] Hep B, Adol or Pedi 2003-06-04 Completed [facility]ive rsity of Dosage 00:00:00 [facility] MMR 2003-06-04 Completed [facility] 00:00:00 [facility] Polio (IPV/OPV) 2003-06-04 Completed [facility] 00:00:00 [facility] Varicella 2003-06-04 Completed [facility] (varivax)(chicken 00:00:00 [place] [facility] DTAP 2003-06-04 Completed [facility] 00:00:00 [facility] HIB 3 Dose Schedule 2003-06-04 Completed [facility]ive rsity of 00:00:00 [facility] Hep B, Adol or Pedi 2003-06-04 Completed [facility]ive rsity of Dosage 00:00:00 [facility] MMR 2003-06-04 Completed [facility] 00:00:00 [facility] Polio (IPV/OPV) 2003-06-04 Completed [facility] 00:00:00 [facility] Varicella 2003-06-04 Completed [facility] (varivax)(chicken 00:00:00 [place] [facility] DTAP 2003-06-04 Completed [facility] 00:00:00 [facility] HIB 3 Dose Schedule 2003-06-04 Completed [facility]ive rsity of 00:00:00 [facility] Hep B, Adol or Pedi 2003-06-04 Completed [facility] of Dosage 00:00:00 [facility] MMR 2003-06-04 Completed [facility] 00:00:00 [facility] Polio (IPV/OPV) 2003-06-04 Completed [facility] 00:00:00 [facility] Varicella 2003-06-04 Completed [facility] (varivax)(chicken 00:00:00 [place] [facility] DTAP 2003-06-04 Completed [facility] 00:00:00 [facility] HIB 3 Dose Schedule 2003-06-04 Completed [facility]ive rsity of 00:00:00 [facility] Hep B, Adol or Pedi 2003-06-04 Completed [facility]ity of Dosage 00:00:00 [facility] MMR 2003-06-04 Completed [facility] 00:00:00 [facility] Polio (IPV/OPV) 2003-06-04 Completed [facility] 00:00:00 [facility] Varicella 2003-06-04 Completed [facility] (varivax)(chicken 00:00:00 [place] [facility] DTaP, Unspecified 2003-06-04 Completed Univers ity of Formulation 00:00:00 [facility] HIB 4 Dose Schedule 2003-06-04 Completed Unive rsity of 00:00:00 [facility] IPV 2003-06-04 Completed [facility] 00:00:00 [facility] DTAP 2003-06-04 Completed [facility] 00:00:00 [facility] HIB 3 Dose Schedule 2003-06-04 Completed Unive rsity of 00:00:00 [facility] Hep B, Adol or Pedi 2003-06-04 Completed [facility]ive rsity of Dosage 00:00:00 [facility] MMR 2003-06-04 Completed [facility] 00:00:00 [facility] Polio (IPV/OPV) 2003-06-04 Completed [facility] of 00:00:00 [facility] Varicella 2003-06-04 Completed [facility] (varivax)(chicken 00:00:00 [place] [facility] DTaP, Unspecified 2003-06-04 Completed Univers ity of Formulation 00:00:00 [facility] HIB 4 Dose Schedule 2003-06-04 Completed Unive rsity of 00:00:00 [facility] IPV 2003-06-04 Completed [facility] 00:00:00 [facility] DTAP 2003-06-04 Completed [facility] 00:00:00 [facility] HIB 3 Dose Schedule 2003-06-04 Completed Unive rsity of 00:00:00 [facility] Hep B, Adol or Pedi 2003-06-04 Completed [facility]ive rsity of Dosage 00:00:00 [facility] MMR 2003-06-04 Completed [facility] 00:00:00 [facility] Polio (IPV/OPV) 2003-06-04 Completed [facility] of 00:00:00 [facility] Varicella 2003-06-04 Completed [facility] (varivax)(chicken 00:00:00 [place] [facility] DTaP, Unspecified 2003-06-04 Completed Univers ity of Formulation 00:00:00 [facility] HIB 4 Dose Schedule 2003-06-04 Completed Unive rsity of 00:00:00 [facility] IPV 2003-06-04 Completed [facility] 00:00:00 [facility] DTAP 2003-06-04 Completed [facility] 00:00:00 [facility] HIB 3 Dose Schedule 2003-06-04 Completed Unive rsity of 00:00:00 [facility] Hep B, Adol or Pedi 2003-06-04 Completed Unive rsity of Dosage 00:00:00 [facility] MMR 2003-06-04 Completed [facility] 00:00:00 [facility] Polio (IPV/OPV) 2003-06-04 Completed [facility] of 00:00:00 [facility] Varicella 2003-06-04 Completed [facility] (varivax)(chicken 00:00:00 [place] [facility] DTaP, Unspecified 2003-06-04 Completed Univers ity of Formulation 00:00:00 [facility] HIB 4 Dose Schedule 2003-06-04 Completed Unive rsity of 00:00:00 [facility] IPV 2003-06-04 Completed [facility] 00:00:00 [facility] DTAP 2003-06-04 Completed [facility] 00:00:00 [facility] HIB 3 Dose Schedule 2003-06-04 Completed Unive rsity of 00:00:00 [facility] Hep B, Adol or Pedi 2003-06-04 Completed Unive rsity of Dosage 00:00:00 [facility] MMR 2003-06-04 Completed [facility] 00:00:00 [facility] Polio (IPV/OPV) 2003-06-04 Completed [facility] 00:00:00 [facility] Varicella 2003-06-04 Completed [facility] (varivax)(chicken 00:00:00 [place] [facility] DTaP, Unspecified 2003-06-04 Completed Univers ity of Formulation 00:00:00 [facility] HIB 4 Dose Schedule 2003-06-04 Completed Unive rsity of 00:00:00 [facility] IPV 2003-06-04 Completed [facility] 00:00:00 [facility] DTAP 2003-06-04 Completed [facility] 00:00:00 [facility] HIB 3 Dose Schedule 2003-06-04 Completed Unive rsity of 00:00:00 [facility] Hep B, Adol or Pedi 2003-06-04 Completed Unive rsity of Dosage 00:00:00 [facility] MMR 2003-06-04 Completed [facility] 00:00:00 [facility] Polio (IPV/OPV) 2003-06-04 Completed [facility] 00:00:00 [facility] Varicella 2003-06-04 Completed [facility] (varivax)(chicken 00:00:00 [place] [facility] DTaP, Unspecified 2003-06-04 Completed Univers ity of Formulation 00:00:00 [facility] HIB 4 Dose Schedule 2003-06-04 Completed Unive rsity of 00:00:00 [facility] IPV 2003-06-04 Completed [facility] 00:00:00 [facility] DTAP 2003-06-04 Completed [facility] 00:00:00 [facility] HIB 3 Dose Schedule 2003-06-04 Completed Unive rsity of 00:00:00 [facility] Hep B, Adol or Pedi 2003-06-04 Completed Unive rsity of Dosage 00:00:00 [facility] MMR 2003-06-04 Completed [facility] 00:00:00 [facility] Polio (IPV/OPV) 2003-06-04 Completed [facility] of 00:00:00 [facility] Varicella 2003-06-04 Completed [facility] (varivax)(chicken 00:00:00 [place] [facility] DTaP, Unspecified 2003-06-04 Completed [facility] ity of Formulation 00:00:00 [facility] HIB 4 Dose Schedule 2003-06-04 Completed Unive rsity of 00:00:00 [facility] IPV 2003-06-04 Completed [facility] 00:00:00 [facility] DTAP 2003-06-04 Completed [facility] 00:00:00 [facility] HIB 3 Dose Schedule 2003-06-04 Completed Unive rsity of 00:00:00 [facility] Hep B, Adol or Pedi 2003-06-04 Completed Unive rsity of Dosage 00:00:00 [facility] MMR 2003-06-04 Completed [facility] 00:00:00 [facility] Polio (IPV/OPV) 2003-06-04 Completed [facility] of 00:00:00 [facility] Varicella 2003-06-04 Completed [facility] of (varivax)(chicken 00:00:00 [facility] edical pox) Branch DTaP, Unspecified 2003-06-04 Completed Univers ity of Formulation 00:00:00 [facility] HIB 4 Dose Schedule 2003-06-04 Completed Unive rsity of 00:00:00 [facility] IPV 2003-06-04 Completed [facility] of 00:00:00 [facility] DTAP 2003-06-04 Completed [facility] 00:00:00 [facility] HIB 3 Dose Schedule 2003-06-04 Completed Unive rsity of 00:00:00 [facility] Hep B, Adol or Pedi 2003-06-04 Completed Unive rsity of Dosage 00:00:00 [facility] MMR 2003-06-04 Completed [facility] 00:00:00 [facility] Polio (IPV/OPV) 2003-06-04 Completed [facility] 00:00:00 [facility] Varicella 2003-06-04 Completed [facility] (varivax)(chicken 00:00:00 [place] [facility] DTaP, Unspecified 2003-06-04 Completed [facility] ity of Formulation 00:00:00 [facility] HIB 4 Dose Schedule 2003-06-04 Completed Unive rsity of 00:00:00 [facility] IPV 2003-06-04 Completed [facility] 00:00:00 [facility] DTAP 2003-06-04 Completed [facility] 00:00:00 [facility] HIB 3 Dose Schedule 2003-06-04 Completed Unive rsity of 00:00:00 [facility] Hep B, Adol or Pedi 2003-06-04 Completed Unive rsity of Dosage 00:00:00 [facility] MMR 2003-06-04 Completed [facility] 00:00:00 [facility] Polio (IPV/OPV) 2003-06-04 Completed [facility] 00:00:00 [facility] Varicella 2003-06-04 Completed [facility] of (varivax)(chicken 00:00:00 [facility] edical pox) Branch DTaP, Unspecified 2003-06-04 Completed Univers ity of Formulation 00:00:00 [facility] HIB 4 Dose Schedule 2003-06-04 Completed Unive rsity of 00:00:00 [facility] IPV 2003-06-04 Completed [facility] 00:00:00 [facility] DTAP 2003-06-04 Completed [facility] 00:00:00 [facility] HIB 3 Dose Schedule 2003-06-04 Completed Unive rsity of 00:00:00 [facility] Hep B, Adol or Pedi 2003-06-04 Completed Unive rsity of Dosage 00:00:00 [facility] MMR 2003-06-04 Completed [facility] 00:00:00 [facility] Polio (IPV/OPV) 2003-06-04 Completed [facility] 00:00:00 [facility] Varicella 2003-06-04 Completed [facility] of (varivax)(chicken 00:00:00 [facility] edical pox) Branch DTaP, Unspecified 2003-06-04 Completed [facility] ity of Formulation 00:00:00 [facility] HIB 4 Dose Schedule 2003-06-04 Completed Unive rsity of 00:00:00 [facility] IPV 2003-06-04 Completed [facility] 00:00:00 [facility] DTAP 2003-06-04 Completed [facility] 00:00:00 [facility] HIB 3 Dose Schedule 2003-06-04 Completed [facility] rsity of 00:00:00 [facility] Hep B, Adol or Pedi 2003-06-04 Completed [facility]ive rsity of Dosage 00:00:00 [facility] MMR 2003-06-04 Completed [facility] 00:00:00 [facility] Polio (IPV/OPV) 2003-06-04 Completed [facility] 00:00:00 [facility] Varicella 2003-06-04 Completed [facility] of (varivax)(chicken 00:00:00 [facility] edical pox) Branch DTaP, Unspecified 2003-06-04 Completed [facility] Formulation 00:00:00 [facility] HIB 4 Dose Schedule 2003-06-04 Completed Unive rsity of 00:00:00 [facility] IPV 2003-06-04 Completed [facility] 00:00:00 [facility] DTAP 2003-06-04 Completed [facility] 00:00:00 [facility] HIB 3 Dose Schedule 2003-06-04 Completed [facility] rsity of 00:00:00 [facility] Hep B, Adol or Pedi 2003-06-04 Completed [facility]ive [facility]ity of Dosage 00:00:00 [facility] MMR 2003-06-04 Completed [facility] 00:00:00 [facility] Polio (IPV/OPV) 2003-06-04 Completed [facility] 00:00:00 [facility] Varicella 2003-06-04 Completed [facility] of (varivax)(chicken 00:00:00 [facility] edical pox) Branch DTaP, Unspecified 2003-06-04 Completed [facility] it[facility] of Formulation 00:00:00 [facility] HIB 4 Dose Schedule 2003-06-04 Completed [facility] rsity of 00:00:00 [facility] IPV 2003-06-04 Completed [facility] 00:00:00 [facility] DTAP 2003-06-04 Completed [facility] 00:00:00 [facility] HIB 3 Dose Schedule 2003-06-04 Completed [facility] rsity of 00:00:00 [facility] Hep B, Adol or Pedi 2003-06-04 Completed [facility] of Dosage 00:00:00 [facility] MMR 2003-06-04 Completed [facility] 00:00:00 [facility] Polio (IPV/OPV) 2003-06-04 Completed [facility] 00:00:00 [facility] Varicella 2003-06-04 Completed University of (varivax)(chicken 00:00:00 [place] [facility] DTaP, Unspecified 2003-06-04 Completed Univers ity of Formulation 00:00:00 [facility] HIB 4 Dose Schedule 2003-06-04 Completed Unive rsity of 00:00:00 [facility] IPV 2003-06-04 Completed University of 00:00:00 [facility] DTAP 2003-06-04 Completed University of 00:00:00 [facility] HIB 3 Dose Schedule 2003-06-04 Completed Unive rsity of 00:00:00 [facility] Hep B, Adol or Pedi 2003-06-04 Completed Unive rsity of Dosage 00:00:00 [facility] MMR 2003-06-04 Completed University of 00:00:00 [facility] Polio (IPV/OPV) 2003-06-04 Completed Universit y of 00:00:00 [facility] Varicella 2003-06-04 Completed [facility] (varivax)(chicken 00:00:00 [place] [facility] DTaP, Unspecified 2003-06-04 Completed Univers ity of Formulation 00:00:00 [facility] HIB 4 Dose Schedule 2003-06-04 Completed Unive rsity of 00:00:00 [facility] IPV 2003-06-04 Completed University of 00:00:00 [facility] DTAP 2003-06-04 Completed University of 00:00:00 [facility] HIB 3 Dose Schedule 2003-06-04 Completed Unive rsity of 00:00:00 [facility] Hep B, Adol or Pedi 2003-06-04 Completed Unive rsity of Dosage 00:00:00 [facility] MMR 2003-06-04 Completed University of 00:00:00 [facility] Polio (IPV/OPV) 2003-06-04 Completed Universit y of 00:00:00 [facility] Varicella 2003-06-04 Completed University of (varivax)(chicken 00:00:00 [facility] edical pox) Branch DTaP, Unspecified 2003-06-04 Completed Univers ity of Formulation 00:00:00 [facility] HIB 4 Dose Schedule 2003-06-04 Completed Unive rsity of 00:00:00 [facility] IPV 2003-06-04 Completed University of 00:00:00 [facility] DTAP 2003-06-04 Completed University of 00:00:00 [facility] HIB 3 Dose Schedule 2003-06-04 Completed Unive rsity of 00:00:00 [facility] Hep B, Adol or Pedi 2003-06-04 Completed Unive rsity of Dosage 00:00:00 [facility] MMR 2003-06-04 Completed University of 00:00:00 [facility] Polio (IPV/OPV) 2003-06-04 Completed Universit y of 00:00:00 [facility] Varicella 2003-06-04 Completed University of (varivax)(chicken 00:00:00 [facility] edical pox) Branch DTaP, Unspecified 2003-06-04 Completed Univers ity of Formulation 00:00:00 [facility] HIB 4 Dose Schedule 2003-06-04 Completed Unive rsity of 00:00:00 [facility] IPV 2003-06-04 Completed University of 00:00:00 [facility] DTAP 2003-06-04 Completed University of 00:00:00 [facility] HIB 3 Dose Schedule 2003-06-04 Completed Unive rsity of 00:00:00 [facility] Hep B, Adol or Pedi 2003-06-04 Completed Unive rsity of Dosage 00:00:00 [facility] MMR 2003-06-04 Completed University of 00:00:00 [facility] Polio (IPV/OPV) 2003-06-04 Completed Universit y of 00:00:00 [facility] Varicella 2003-06-04 Completed [facility] (varivax)(chicken 00:00:00 [place] [facility] DTaP, Unspecified 2003-06-04 Completed Univers ity of Formulation 00:00:00 [facility] HIB 4 Dose Schedule 2003-06-04 Completed Unive rsity of 00:00:00 [facility] IPV 2003-06-04 Completed University of 00:00:00 [facility] DTAP 2003-06-04 Completed University of 00:00:00 [facility] HIB 3 Dose Schedule 2003-06-04 Completed Unive rsity of 00:00:00 [facility] Hep B, Adol or Pedi 2003-06-04 Completed Unive rsity of Dosage 00:00:00 [facility] MMR 2003-06-04 Completed University of 00:00:00 [facility] Polio (IPV/OPV) 2003-06-04 Completed Universit y of 00:00:00 [facility] Varicella 2003-06-04 Completed University of (varivax)(chicken 00:00:00 [facility] edical pox) Branch DTaP, Unspecified 2003-06-04 Completed Univers ity of Formulation 00:00:00 [facility] HIB 4 Dose Schedule 2003-06-04 Completed Unive rsity of 00:00:00 [facility] IPV 2003-06-04 Completed University of 00:00:00 [facility] Vital Signs Vital Name Observation Time Observation Value Comments Source Systolic blood 2022-07-25 13:45:00 140 mm[Hg] Univer sity of pressure [facility] Diastolic blood 2022-07-25 13:45:00 97 mm[Hg] Unive rsity of pressure [facility] Heart rate 2022-07-25 12:15:00 92 /min Universi ty of [facility] Body temperature 2022-07-25 12:15:00 36.67 Nabila Univ ersity [facility] Respiratory rate 2022-07-25 12:15:00 18 /min Univ ersity [facility] Oxygen saturation in 2022-07-25 12:15:00 100 /min University of Arterial blood by [facility] Pulse oximetry Branch Body height 2022-07-24 14:30:00 167.6 cm Universi ty [facility] Systolic blood 2022-07-23 18:30:00 130 mm[Hg] Univer sity of pressure [facility] Diastolic blood 2022-07-23 18:30:00 84 mm[Hg] Unive rsity of pressure [facility] Heart rate 2022-07-23 18:30:00 115 /min Universi ty [facility] Body temperature 2022-07-23 18:30:00 36.94 Nabila Univ ersity [facility] Respiratory rate 2022-07-23 18:30:00 18 /min Univ ersity [facility] Oxygen saturation in 2022-07-23 18:30:00 99 /min University of Arterial blood by [place] [employer] [facility] Pulse oximetry Branch Body height 2022-07-21 15:36:00 167.6 cm Universi ty [facility] Body weight 2022-07-21 15:36:00 89.359 kg Universi ty [facility] BMI 2022-07-21 15:36:00 31.80 kg/m2 [facility] Systolic blood 2022-07-21 18:00:00 131 mm[Hg] Univer sity of pressure [facility] Diastolic blood 2022-07-21 18:00:00 84 mm[Hg] Unive rsity of pressure [facility] Heart rate 2022-07-21 18:00:00 104 /min Universi ty of [facility] Body temperature 2022-07-21 18:00:00 36.56 Nabila Univ ersity of [facility] Respiratory rate 2022-07-21 18:00:00 18 /min Univ ersity of [facility] Oxygen saturation in 2022-07-21 18:00:00 100 /min [facility] of Arterial blood by [place] [employer] Pulse oximetry Branch Body height 2022-07-21 15:36:00 167.6 cm [facility]i ty [facility] Body weight 2022-07-21 15:36:00 89.359 kg [facility]i [facility] BMI 2022-07-21 15:36:00 31.80 kg/m2 [facility] Systolic blood 2022-07-17 17:09:00 103 mm[Hg] Univer sity of pressure [facility] Diastolic blood 2022-07-17 17:09:00 51 mm[Hg] Unive rsity of pressure [facility] Heart rate 2022-07-17 17:09:00 82 /min Universi ty of [facility] Body temperature 2022-07-17 17:09:00 36.56 Nabila Univ ersity of [facility] Respiratory rate 2022-07-17 17:09:00 16 /min Univ ersity of [facility] Oxygen saturation in 2022-07-17 17:09:00 99 /min University of Arterial blood by [employer] Pulse oximetry Branch Body height 2022-07-17 15:58:00 167.6 cm 5' 6" Universi ty of [facility] Body weight 2022-07-17 15:58:00 87.816 kg 193.6lb [facility] BMI 2022-07-17 15:58:00 31.25 kg/m2 [facility] Systolic blood 2022-07-11 06:00:00 121 mm[Hg] Univer sity of pressure [facility] Diastolic blood 2022-07-11 06:00:00 68 mm[Hg] Unive rsity of pressure [facility] Heart rate 2022-07-11 06:00:00 100 /min Universi ty [facility] Oxygen saturation in 2022-07-11 06:00:00 99 /min University of Arterial blood by [facility] Pulse oximetry Branch Body temperature 2022-07-11 04:00:00 36.78 Nabila Univ ersity of [facility] Respiratory rate 2022-07-11 04:00:00 18 /min Univ ersity of [facility] Body height 2022-07-11 04:00:00 167.6 cm [facility]i ty [facility] Body weight 2022-07-11 04:00:00 89.313 kg [facility] BMI 2022-07-11 04:00:00 31.78 kg/m2 [facility] Systolic blood 2022-07-08 19:21:00 133 mm[Hg] Univer sity of pressure [facility] Diastolic blood 2022-07-08 19:21:00 79 mm[Hg] Unive rsity of pressure [facility] Heart rate 2022-07-08 19:21:00 94 /min Universi ty of [facility] Body temperature 2022-07-08 19:21:00 36.22 Nabila Univ ersity of [facility] Respiratory rate 2022-07-08 19:21:00 18 /min Univ ersity of [facility] Body height 2022-07-08 19:21:00 167.6 cm [facility]i [facility] Body weight 2022-07-08 19:21:00 86.909 kg [facility] BMI 2022-07-08 19:21:00 30.93 kg/m2 [facility] Heart rate 2022-07-06 09:15:00 96 /min [facility]i ty [facility] Oxygen saturation in 2022-07-06 09:15:00 99 /min University of Arterial blood by [facility] Pulse oximetry Branch Systolic blood 2022-07-06 05:20:00 121 mm[Hg] Univer sity of pressure [facility] Diastolic blood 2022-07-06 05:20:00 70 mm[Hg] Unive rsity of pressure [facility] Body temperature 2022-07-06 05:20:00 37.06 Nabila Univ ersity of [facility] Body height 2022-07-06 05:20:00 167.6 cm [facility]i ty [facility] Body weight 2022-07-06 05:20:00 86.637 kg [facility] BMI 2022-07-06 05:20:00 30.83 kg/m2 [facility] Respiratory rate 2022-07-06 05:01:00 16 /min Univ ersity of [facility] Systolic blood 2022-06-23 19:46:00 135 mm[Hg] Univer sity of pressure [facility] Diastolic blood 2022-06-23 19:46:00 85 mm[Hg] Unive rsity of pressure [facility] Heart rate 2022-06-23 19:46:00 102 /min Universi ty of [facility] Body temperature 2022-06-23 19:46:00 36.11 Nabila Univ ersity of [facility] Respiratory rate 2022-06-23 19:46:00 18 /min Univ ersity of [facility] Body height 2022-06-23 19:46:00 167.6 cm [facility] Body weight 2022-06-23 19:46:00 85.004 kg [facility] BMI 2022-06-23 19:46:00 30.25 kg/m2 [facility] Systolic blood 2022-06-09 18:04:00 110 mm[Hg] Univer sity of pressure [facility] Diastolic blood 2022-06-09 18:04:00 60 mm[Hg] Unive rsity of pressure [facility] Heart rate 2022-06-09 17:59:00 112 /min [facility]i ty [facility] Body temperature 2022-06-09 17:57:00 36.28 Nabila Univ ers[facility] of [facility] Respiratory rate 2022-06-09 17:57:00 18 /min Univ ersity of [facility] Body height 2022-06-09 17:57:00 170.2 cm [facility] Body weight 2022-06-09 17:57:00 85.911 kg [facility] BMI 2022-06-09 17:57:00 29.66 kg/m2 [facility] Body temperature 2022-06-02 15:34:00 36.72 Nabila Univ ers[facility] of [facility] Body weight 2022-06-02 15:34:00 85.73 kg [facility] BMI 2022-06-02 15:34:00 30.51 kg/m2 [facility] Systolic blood 2022-05-26 15:34:00 111 mm[Hg] Univer sity of pressure [facility] Diastolic blood 2022-05-26 15:34:00 71 mm[Hg] Unive rsity of pressure [facility] Heart rate 2022-05-26 15:34:00 87 /min Universi ty [facility] Body temperature 2022-05-26 15:34:00 36.33 Nabila Univ ersity of [facility] Respiratory rate 2022-05-26 15:34:00 18 /min Univ ersity of [facility] Body height 2022-05-26 15:34:00 167.6 cm [facility] Body weight 2022-05-26 15:34:00 85.73 kg [facility] BMI 2022-05-26 15:34:00 30.51 kg/m2 [facility] Body temperature 2022-05-19 15:46:00 36.17 Nabila Univ ersity of [facility] Body weight 2022-05-19 15:46:00 85.095 kg [facility] BMI 2022-05-19 15:46:00 30.28 kg/m2 [facility] Systolic blood 2022-05-12 20:15:00 122 mm[Hg] Univer sity of pressure [facility] Diastolic blood 2022-05-12 20:15:00 67 mm[Hg] Unive rsity of pressure [facility] Heart rate 2022-05-12 20:15:00 85 /min Universi ty [facility] Body temperature 2022-05-12 20:15:00 35.83 Nabila Univ ersity of [facility] Respiratory rate 2022-05-12 20:15:00 18 /min Univ ersity of [facility] Body height 2022-05-12 20:15:00 167.6 cm [facility] ty [facility] Body weight 2022-05-12 20:15:00 83.961 kg Universi ty [facility] BMI 2022-05-12 20:15:00 29.88 kg/m2 [facility] Body temperature 2022-05-05 16:37:00 36.56 Nabila Univ ers[facility] of [facility] Body weight 2022-05-05 16:37:00 83.553 kg Universi ty [facility] Systolic blood 2022-04-28 17:19:00 128 mm[Hg] Univer sity of pressure [facility] Diastolic blood 2022-04-28 17:19:00 73 mm[Hg] Unive rsity of pressure [facility] Heart rate 2022-04-28 17:19:00 87 /min Universi ty of [facility] Body temperature 2022-04-28 17:19:00 37.06 Nabila Univ ersity of [facility] Respiratory rate 2022-04-28 17:19:00 18 /min Univ ersity of [facility] Body weight 2022-04-28 17:19:00 82.736 kg Universi [facility] Body temperature 2022-04-21 16:16:00 36.61 Nabila Univ ersity of [facility] Body weight 2022-04-21 16:16:00 81.421 kg [facility] BMI 2022-04-21 16:16:00 28.97 kg/m2 [facility] Systolic blood 2022-04-14 16:55:00 119 mm[Hg] Univer sity of pressure [facility] Diastolic blood 2022-04-14 16:55:00 72 mm[Hg] Unive rsity of pressure [facility] Heart rate 2022-04-14 16:55:00 75 /min Universi ty [facility] Body temperature 2022-04-14 16:55:00 36.78 Nabila Univ ersity of [facility] Respiratory rate 2022-04-14 16:55:00 16 /min Univ ersity of [facility] Body height 2022-04-14 16:55:00 167.6 cm [facility] Body weight 2022-04-14 16:55:00 79.742 kg [facility] ty [facility] BMI 2022-04-14 16:55:00 28.37 kg/m2 [facility] Systolic blood 2022-04-07 19:07:00 122 mm[Hg] Univer sity of pressure [facility] Diastolic blood 2022-04-07 19:07:00 76 mm[Hg] Unive rsity of pressure [facility] Heart rate 2022-04-07 19:07:00 95 /min Universi ty [facility] Body temperature 2022-04-07 19:07:00 37.06 Nabila Univ ersity of [facility] Respiratory rate 2022-04-07 19:07:00 20 /min Univ ersity of [facility] Body weight 2022-04-07 19:07:00 78.835 kg [facility] Systolic blood 2022-03-31 15:59:00 118 mm[Hg] Univer sity of pressure [facility] Diastolic blood 2022-03-31 15:59:00 76 mm[Hg] Unive rsity of pressure [facility] Heart rate 2022-03-31 15:59:00 82 /min Universi ty of [facility] Body temperature 2022-03-31 15:59:00 37.11 Nabila Univ ersity of [facility] Respiratory rate 2022-03-31 15:59:00 18 /min Univ ersity of [facility] Body height 2022-03-31 15:59:00 167.6 cm Universi ty [facility] Body weight 2022-03-31 15:59:00 76.885 kg [facility] BMI 2022-03-31 15:59:00 27.36 kg/m2 [facility] Body temperature 2022-03-24 15:55:00 36.61 Nabila Univ ersity of [facility] Respiratory rate 2022-03-24 15:55:00 18 /min Univ ersity of [facility] Body weight 2022-03-24 15:55:00 75.796 kg [facility] Systolic blood 2022-03-10 17:15:00 116 mm[Hg] Univer sity of pressure [facility] Diastolic blood 2022-03-10 17:15:00 74 mm[Hg] Unive rsity of pressure [facility] Heart rate 2022-03-10 17:15:00 77 /min [facility]i ty [facility] Body temperature 2022-03-10 17:15:00 36.94 Nabila Univ ersity of [facility] Respiratory rate 2022-03-10 17:15:00 20 /min Univ ersity of [facility] Body height 2022-03-10 17:15:00 167.6 cm [facility] Body weight 2022-03-10 17:15:00 72.938 kg [facility] BMI 2022-03-10 17:15:00 25.95 kg/m2 [facility] Systolic blood 2022-02-24 16:18:00 109 mm[Hg] Univer sity of pressure [facility] Diastolic blood 2022-02-24 16:18:00 68 mm[Hg] Unive rsity of pressure [facility] Heart rate 2022-02-24 16:18:00 83 /min Universi ty [facility] Body temperature 2022-02-24 16:18:00 36.44 Nabila Univ ersity of [facility] Respiratory rate 2022-02-24 16:18:00 18 /min Univ ersity of [facility] Body height 2022-02-24 16:18:00 167.6 cm [facility] Body weight 2022-02-24 16:18:00 69.673 kg [facility] BMI 2022-02-24 16:18:00 24.79 kg/m2 [facility] Systolic blood 2022-02-10 19:32:00 135 mm[Hg] Univer sity of pressure [facility] Diastolic blood 2022-02-10 19:32:00 90 mm[Hg] Unive rsity of pressure [facility] Heart rate 2022-02-10 19:32:00 130 /min [facility]i ty [facility] Body temperature 2022-02-10 19:32:00 36.89 Nabila Univ ersity of [facility] Respiratory rate 2022-02-10 19:32:00 20 /min Univ ersity of [facility] Body height 2022-02-10 19:32:00 167.6 cm [facility] Body weight 2022-02-10 19:32:00 71.215 kg [facility] BMI 2022-02-10 19:32:00 25.34 kg/m2 [facility] Systolic blood 2022-01-27 15:32:00 127 mm[Hg] Univer sity of pressure [facility] Diastolic blood 2022-01-27 15:32:00 77 mm[Hg] Unive rsity of pressure [facility] Heart rate 2022-01-27 15:32:00 99 /min [facility] Body temperature 2022-01-27 15:32:00 36.22 Nabila Univ ers[facility] of [facility] Respiratory rate 2022-01-27 15:32:00 20 /min Univ ersity of [facility] Body height 2022-01-27 15:32:00 167.6 cm [facility] Body weight 2022-01-27 15:32:00 70.988 kg [facility] BMI 2022-01-27 15:32:00 25.26 kg/m2 [facility] Systolic blood 2021-12-23 14:24:00 118 mm[Hg] Univer sity of pressure [facility] Diastolic blood 2021-12-23 14:24:00 77 mm[Hg] Unive rsity of pressure [facility] Heart rate 2021-12-23 14:24:00 87 /min [facility] ty [facility] Body temperature 2021-12-23 14:24:00 37 Nabila Univ ersity of [facility] Respiratory rate 2021-12-23 14:24:00 18 /min Univ ersity of [facility] Body height 2021-12-23 14:24:00 167.6 cm [facility] Body weight 2021-12-23 14:24:00 70.761 kg [facility] BMI 2021-12-23 14:24:00 25.18 kg/m2 [facility] Systolic blood 2021-12-09 14:24:00 118 mm[Hg] Univer sity of pressure [facility] Diastolic blood 2021-12-09 14:24:00 79 mm[Hg] Unive rsity of pressure [facility] Heart rate 2021-12-09 14:24:00 88 /min Universi ty of [facility] Body temperature 2021-12-09 14:24:00 36.67 Nabila [facility] Respiratory rate 2021-12-09 14:24:00 16 /min [facility] Body height 2021-12-09 14:24:00 167.6 cm Universi ty of [facility] Body weight 2021-12-09 14:24:00 72.53 kg [facility] [place] [facility] [place] BMI 2021-12-09 14:24:00 25.81 kg/m2 Universi ty [facility] Oxygen saturation in 2021-12-09 14:24:00 97 /min [facility] Arterial blood by [facility] Pulse oximetry Branch Systolic blood 2021-10-12 18:17:00 124 mm[Hg] [facility] Diastolic blood 2021-10-12 18:17:00 90 mm[Hg] [facility] 2021-10-12 18:17:00 112 /min Universi ty of [facility] Body temperature 2021-10-12 18:17:00 37.11 Nabila [facility] Respiratory rate 2021-10-12 18:17:00 20 /min [facility] Body height 2021-10-12 18:17:00 167.6 cm Universi ty [facility] [place] Body weight 2021-10-12 18:17:00 68.04 kg Universi ty [facility] BMI 2021-10-12 18:17:00 24.21 kg/m2 [facility] Procedures Procedure Date / Time Performing Clinician Source Performed CBC WITH DIFF 2022-07-25 10:37:00 Kasey Blanco [facility] COMP. METABOLIC PANEL 2022-07-25 03:06:00 Kasey Blanco [facility] ([id number]) [facility] CBC WITH DIFF 2022-07-25 03:06:00 Kasey Blanco [facility] PROTEIN CREAT RATIO 2022-07-25 03:06:00 Kasey Blanco [facility] URINE [facility] [place] CBC WITH DIFF 2022-07-22 08:27:00 Adum, Hetal [facility] CBC WITH DIFF 2022-07-22 08:27:00 Adum, Hetal [facility] SECTION 2022-07-21 18:36:00 Adum, Hetal Fabiano [facility] SECTION 2022-07-21 18:36:00 Adum, Hetal Fabiano [facility] URINE DRUG (IMMUNOASSAY) 2022-07-21 18:12:00 Adum, Hetal Mario [facility] nch SCREEN W/O REFLEX URINE DRUG (IMMUNOASSAY) 2022-07-21 18:12:00 Adum, Hetal Fabiano [facility] nch SCREEN W/O REFLEX CBC WITH DIFF 2022-07-21 16:52:00 Adum, Hetal [facility] HEPATITIS B SURFACE 2022-07-21 16:52:00 Adum, Hetal Mario [facility] ANTIGEN [facility] HB ABO GROUPING 2022-07-21 16:52:00 Adum, Hetal [facility] ADC OR [place] ONLY - 2022-07-21 16:52:00 Adum, Hetal Mario [facility] HIV 1/2 AG-AB WITH 2022-07-21 16:52:00 Adum, Hetal Mario [facility] REFLEX [facility] CBC WITH DIFF 2022-07-21 16:52:00 Adum, Hetal [facility] HEPATITIS B SURFACE 2022-07-21 16:52:00 Adum, Hetal Mario [facility] ANTIGEN [facility] HB ABO GROUPING 2022-07-21 16:52:00 Adum, Hetal [facility] ADC OR [place] ONLY - 2022-07-21 16:52:00 Adum, Hetal Mario [facility] HIV 1/2 AG-AB WITH 2022-07-21 16:52:00 Adum, Hetal Mario [facility] REFLEX [facility] RHO (D) IMMUNE GLOBULIN 2022-07-21 16:52:00 Tony Blanco [facility] ONLY - FERN TEST 2022-07-21 16:06:00 Adum, Hetal Mario [facility] ONLY - FERN TEST 2022-07-21 16:06:00 Adum, Hetal Mario [facility] CONSENT/REFUSAL FOR 2022-07-21 15:31:39 Doctor Unassigned, No [facility] [place] [facility] CONSENT/REFUSAL FOR 2022-07-21 15:31:39 Doctor Unassigned, No [facility] [place] [facility] URINALYSIS 2022-07-17 16:35:00 Adum, Hetal Mario [facility] ONLY - FERN TEST 2022-07-17 16:35:00 Adum, Hetal Mario [facility] URINALYSIS 2022-07-11 06:30:00 [facility] ADC CLC OR LCC ONLY - 2022-07-11 06:30:00 Austin Arzola [facility] NOTICE OF PRIVACY 2022-07-11 03:43:30 Doctor Unassigned, No [facility] PRACTICES [facility] CONSENT/REFUSAL FOR 2022-07-11 03:43:01 Doctor Unassigned, No [facility] ASSIGNMENT OF BENEFITS 2022-07-11 03:42:40 Doctor Unassigned, No [facility] POCT URINALYSIS 2022-07-08 19:23:00 Antonette Solano [facility] L&D VISIT 2022-07-06 05:01:00 Doctor Unassigned, No [facility] (NON-DELIVERED) [facility] ASSIGNMENT OF BENEFITS 2022-07-06 04:55:57 Doctor Unassigned, No [facility] POCT URINALYSIS 2022-06-23 19:48:00 Antonette Solano [facility] POCT URINALYSIS 2022-06-09 18:04:00 Antonette Solano [facility] TDAP VACCINE, >11 YRS, 2022-05-26 15:59:59 Tushar Lan [facility] GLUCOSE 1 HOUR POST 2022-05-12 21:16:00 Tushar Lan [facility] CBC WITH DIFF 2022-05-12 21:16:00 Tushar Lan [facility] POCT URINALYSIS 2022-05-12 20:18:00 Antonette Solano [facility] POCT URINALYSIS 2022-04-28 17:24:00 Antonette Solano [facility] SECOND AND THIRD 2022-04-14 15:44:00 Antonette Solano [facility] TRIMESTER ULTRASOUND Medical [facility] POCT URINALYSIS 2022-03-31 16:02:00 Antonette Solano [facility] POCT URINALYSIS 2022-03-10 00:00:00 Antonette Solano [facility] POCT URINALYSIS 2022-02-24 16:30:00 Antonette Solano [facility] POCT URINALYSIS 2022-02-10 00:00:00 Antonette Solano [facility] POCT URINALYSIS 2022-01-27 15:33:00 Antonette Solano [facility] REPORT OF 2021-12-23 05:01:00 Doctor Unassigned, No [facility] 2021-12-23 00:00:00 Antonette Solano [facility] POCT URINALYSIS W/O 2021-12-23 00:00:00 Antonette Solano [facility] SPECIFIC [facility] US FIRST 2021-12-14 21:24:20 Sara Snyder [facility] TRIMESTER LESS THAN 14 Medical [facility] WEEKS WITH TRANSVAGINAL ASSIGNMENT OF BENEFITS 2021-12-14 19:54:43 Doctor Unassigned, No [facility] POCT TEST 2021-12-09 00:00:00 Sara Snyder [facility] POCT TEST 2021-10-12 18:22:00 Tushar Lan [facility] Encounters Start End Encounter Admission Attending Care Care Encounter Source Date/Time Date/Time Type Type Clinicians Facility Department ID 2022-07-24 Outpatient P KASEY BLANCO [facility] ELIAZAR [id number] Univers 07:39:17 KASEY BLANCO ity [facility] 2022-07-11 Outpatient X [facility] EL[facility] [id number] Univers 03:19:31 ity [facility] 2020-12-27 Emergency [facility] [id number] Univers 22:10:58 ity of [facility] 2020-12-27 Emergency [facility] [id number] Univers 22:10:57 ity of [facility] 2020-12-27 Outpatient P [facility] ELIAZAR [id number] Univers 19:19:43 ity of [facility] 2020-12-27 Outpatient P [facility] ELIAAZR [id number] Univers 19:19:36 ity of [facility] 2022-07-27 2022-07-27 Nurse MOSHE Nova 1.2.840.114 [id number] Univers 00:00:00 00:00:00 Triage Patt ESPINAL 350.1.13.10 it y of [facility] 4.2.7.2.686 Jamal as [id number] [address] 2022-07-26 2022-07-26 Telephone Riky [facility] 1.2.840.114 [id number] Univers 00:00:00 00:00:00 Tushar Lund PATENT ENGINEER 350.1.13.10 ity [facility] 42.7.2.686 Jamal as MATERNAL [id number] [facility] ical & CHILD [address] [place] [address] 2022-07-24 2022-07-25 Outpatient P KASEY BLANCO [facility] G YN [id number] Univers 09:28:00 12:30:00 KASEY BLANCO ity [facility] 2022-07-24 2022-07-25 [facility] 1.2.840.114 [id number] Univers 09:28:00 12:30:00 Encounter Kasey taylor 350.1.13.10 ity of [facility] 4.2.7.2.686 [facility] [id number] [place] [address] [place] 2022-07-21 2022-07-23 Inpatient X AD, [facility] ELIAZAR [id number] Univers 10:37:00 13:45:00 HETAL ity [facility] 2022-07-21 2022-07-23 Hospital [facility] 1.2.840.114 [id number] Univers 10:37:00 13:45:00 Encounter Hetal PEGUEROTON 350.1.13.10 ity of [facility] 4.2.7.2.686 [place] [id number] [address] 2022-07-21 2022-07-[address] [facility] 1.2.840.114 [id number] Univers 12:35:00 14:27:00 Hetal EPGUEROTON 350.1.13.10 ity of [facility] 4.2.7.2.686 [facility] [id number] [facility] [address] [place] 2022-07-21 2022-07-21 Outpatient R AKINSIPE, [facility] [id number] Univers 10:45:00 10:45:00 TUSHAR rizo o f [facility] 2022-07-19 2022-07-19 Case [facility] 1.2.840.114 [id number] Univers 00:00:00 00:00:00 Management Hetal HELLER 350.1.13.10 ity of [facility] 4.2.7.2.[place] [id number] Ma dical [facility] [address] BUILDING 2022-07-17 2022-07-17 Outpatient X [facility], [facility] ELIAZAR [id number] Univers 10:38:00 12:40:00 HETAL ity [facility] 2022-07-17 2022-07-[address] [facility] 1.2.485.870 [id number] Univers 10:38:00 12:40:00 Hetal HELLER 350.1.13.10 ity of [place] 4.2.7.2.686 [facility] [id number] [address] 2022-07-10 2022-07-11 Outpatient X AUSTIN ARZOLA [facility] ELIAZAR [id number] Univers 22:46:00 03:10:00 ity of [facility] 2022-07-10 2022-07-11 Emergency Austin Arzola [facility] 1.2.840.114 [id number] Univers 22:46:00 03:10:00 Felix HELLER 350.1.13.10 i ty [facility] 4.2.7.2.686 [facility] [id number] [address] 2022-07-11 2022-07-11 Telephone [facility] 1.2.840.114 [id number] Univers 00:00:00 00:00:00 Tushar C PATENT ENGINEER 350.1.13.10 ity of [facility] 4.2.7.2.686 Jamal as MATERNAL [id number] Med ical & CHILD [address] [place] [address] 2022-07-08 2022-07-08 [facility] [id number] Univers 14:15:00 14:41:47 TUSHAR ity o f [facility] 2022-07-08 2022-07-08 Routine [facility] 1.2.096.274 [id number] Univers 14:15:00 14:41:47 Tushar C PATENT ENGINEER 350.1.13.10 ity of Visit [facility] 4.2.7.2.686 Jamal as MATERNAL [id number] [facility] & CHILD [address] [place] [address] 2022-07-06 2022-07-06 Outpatient P ADUM, [facility] ELIAZAR [id number] Univers 00:06:00 04:42:00 HETAL ity [facility] 2022-07-06 2022-07-06 Emergency Adum, [facility] 1.2.933.595 [id number] Univers 00:06:00 04:42:00 Hetal HELLER 350.1.13.10 ity of [place].7.2.686 [place] [id number] [facility] [address] [place] 2022-07-06 2022-07-06 Orders Doctor MOSHE 1.2.840.114 [id number] Univers 00:00:00 00:00:00 Only Unassigned, TEDDY 350.1.13.10 ity of [facility] 4.2.7.2.686 Jamal as [id number] [facility] [address] [place] 2022-07-05 2022-07-05 Orders Doctor MOSHE 1.2.840.114 [id number] Univers 00:00:00 00:00:00 Only Unassigned, TEDDY 350.1.13.10 ity of [place] [facility] 4.2.7.2.686 Jamal as [id number] [address] 2022-06-23 2022-06-23 Outpatient R AKINSIPE, [facility] [id number] Univers 14:45:00 15:08:35 TUSHAR ity o [facility] 2022-06-23 2022-06-23 Routine Akinsipe, [facility] 1.2.014.143 [id number] Univers 14:45:00 15:08:35 Tushar C PATENT ENGINEER 350.1.13.10 ity of Visit [facility] 4.2.7.2.686 Jamal as MATERNAL [id number] Med ical & CHILD 107 [facility] 2022-06-16 2022-06-16 Outpatient R AKINSIPE, [facility] [id number] Univers 13:00:00 13:00:00 TUSHAR ity o [facility] 2022-06-09 2022-06-09 Outpatient R AKINSIPE, [facility] [id number] Univers 12:45:00 13:24:30 TUSHAR ity o [facility] 2022-06-09 2022-06-09 Routine Akinsipe, [facility] 1.2.939.740 [id number] Univers 12:45:00 13:24:30 Tushar C PATENT ENGINEER 350.1.13.10 ity of Visit REGIONAL 4.2.7.2.686 Jamal as MATERNAL [id number] Med ical & CHILD [address] [facility] 2022-06-02 2022-06-02 Nurse Visit, Tk-Rmchp Nurse [facility] 1.2 .840.114 [id number] Univers 10:30:00 10:42:00 Visit Steven Lanilola C PATENT ENGINEER 350.1.13. 10 ity of REGIONAL 4.2.7.2.686 Jamal as MATERNAL [id number] [facility] & [address] 2022-06-02 2022-06-02 Outpatient R AKINSIPE, [facility] [id number] Univers 10:30:00 10:30:00 TUSHAR ity o [facility] 2022-05-26 2022-05-26 Outpatient R AKINSIPE, [facility] [id number] Univers 10:30:00 11:07:20 TUSHAR ity o [facility] 2022-05-26 2022-05-26 Routine Riky, [facility] 1.2.027.327 [id number] Univers 10:30:00 11:07:20 Tushar C PATENT ENGINEER 350.1.13.10 ity of Visit REGIONAL 4.2.7.2.686 Jamal as MATERNAL [id number] [address] 2022-05-19 2022-05-19 Nurse Visit, Tk-Rmchp Nurse [facility] 1.2 .840.114 [id number] Univers 10:30:00 11:03:10 Visit Ashlyn Lanola C PATENT ENGINEER 350.1.13. 10 ity of REGIONAL 4.2.7.2.686 Jamal as MATERNAL [id number] [facility] & CHILD [address] [place] [address] 2022-05-19 2022-05-19 Outpatient R AKINSIPE, [facility] [id number] Univers 10:30:00 10:30:00 TUSHAR ity o [facility] 2022-05-12 2022-05-12 Outpatient R AKINSIPE, [facility] [id number] Univers 14:45:00 15:46:52 TUSHAR ity o [facility] 2022-05-12 2022-05-12 Routine Akinsipe, [facility] 1.2.848.521 [id number] Univers 14:45:00 15:46:52 Tushar C PATENT ENGINEER 350.1.13.10 ity of Visit REGIONAL 4.2.7.2.686 Jamal as MATERNAL [id number] [facility] & CHILD [address] [place] [address] 2022-05-05 2022-05-05 Nurse Visit, Neftali Nurse [facility] 1.2 .840.114 [id number] [facility] 10:30:00 10:45:51 Visit AkinsiSteven mannTushar C PATENT ENGINEER 350.1.13. 10 ity of REGIONAL 4.2.7.2.686 Jamal as MATERNAL [id number] [address] 2022-05-05 2022-05-05 Outpatient R REIDPE, [facility] [id number] Univers 10:30:00 10:30:00 TUSHAR rizo o [facility] 2022-04-28 2022-04-28 Outpatient R MALLYSIPE, [facility] [id number] Univers 11:00:00 11:44:12 TUSHAR ity o [facility] 2022-04-28 2022-04-28 [facility] 1.2.833.901 [id number] Univers 11:00:00 11:44:12 Tushar C PATENT ENGINEER 350.1.13.10 ity of Visit REGIONAL 4.2.7.2.686 Jamal as MATERNAL [id number] [facility] & [address] 2022-04-21 2022-04-21 Nurse Visit, Neftali Nurse [facility] 1.2 .840.114 [id number] [facility] 10:00:00 10:30:36 Visit Antonette Solano PATENT ENGINEER 350.1.13.1 0 ity of REGIONAL 4.2.7.2.686 Jamal as MATERNAL [id number] [facility] & CHILD [address] [place] [address] 2022-04-21 2022-04-21 Outpatient [facility] [id number] Univers 10:00:00 10:00:00 ANTONETTE riosspenser [facility] 2022-04-14 2022-04-14 Outpatient R ASYA [facility] [id number] Univers 09:15:00 11:39:36 SHEREEN rizo [facility] 2022-04-14 2022-04-14 Routine Risk, Moc-Crlqd-Wk/High [facility] 1. 2.840.114 [id number] Univers 09:15:00 11:39:36 Shereen Travis PATENT ENGINEER 350.1.13.10 ity of Visit REGIONAL 4.2.7.2.686 Jamal as MATERNAL [id number] Med ical & CHILD [address] [place] [address] 2022-04-14 2022-04-14 [facility] 1.2 .840.114 [id number] [facility] 10:30:00 10:45:00 Visit Tushar Lan PATENT ENGINEER 350.1.13. 10 ity of REGIONAL 4.2.7.2.686 Jamal as MATERNAL [id number] Med ical & CHILD [address] [place] [address] 2022-04-14 2022-04-14 Product Development Technician Ultrasound, [place] [facility] 1.2 .840.114 [id number] Univers 09:30:00 10:39:28 Visit Shereen Travis PATENT ENGINEER 350.1.13.10 ity of REGIONAL 4.2.7.2.686 Jamal as MATERNAL [id number] [facility] ical & CHILD [address] [place] [address] 2022-04-14 2022-04-14 Outpatient R RIKY [facility] [id number] Univers 10:30:00 10:30:00 TUSHAR rizo o f [facility] 2022-04-14 2022-04-14 Case Ene [facility] 1.2.840.114 [id number] Univers 00:00:00 00:00:00 Management Antonette Millard PATENT ENGINEER 350.1.13.10 ity of REGIONAL 4.2.7.2.686 Jamal as MATERNAL [id number] Med ical & CHILD [address] [place] [address] 2022-04-07 2022-04-07 [facility] 1.2 .840.114 [id number] Univers 13:00:00 13:13:39 Visit Tushar Lan PATENT ENGINEER 350.1.13. 10 ity of REGIONAL 4.2.7.2.686 Jamal as MATERNAL [id number] [facility] & CHILD [address] [place] [address] 2022-04-07 2022-04-07 Outpatient R RIKY [facility] [id number] Univers 13:00:00 13:00:00 TUSHAR rizo o f [facility] 2022-04-07 2022-04-07 Telephone Riky [facility] 1.2.840.114 [id number] Univers 00:00:00 00:00:00 Tushar Lund PATENT ENGINEER 350.1.13.10 ity of REGIONAL 4.2.7.2.686 Jamal as MATERNAL [id number] [facility] & CHILD [address] [place] [address] 2022-03-31 2022-03-31 Outpatient Angelica CAGE [facility] [id number] Univers 09:45:00 10:58:49 EDWIN ity of [facility] 2022-03-31 2022-03-31 Routine Risk, Ymm-Pbhns-Nt/High [facility] 1. 2.840.114 [id number] Univers 09:45:00 10:58:49 Edwin Cage PATENT ENGINEER 350.1.13.10 ity of Visit REGIONAL 4.2.7.2.686 Jamal as MATERNAL [id number] [facility] & CHILD [address] [place] [address] 2022-03-24 2022-03-24 Nurse Visit, West[place]ze Nurse [facility] 1.2 .840.114 [id number] Univers 10:00:00 10:00:00 Visit Tushar Lan PATENT ENGINEER 350.1.13. 10 ity of REGIONAL 4.2.7.2.686 Jamal as MATERNAL [id number] [facility] & CHILD [address] [place] [address] 2022-03-24 2022-03-24 Outpatient R RIKY [facility] [id number] Univers 10:00:00 09:55:01 TUSHAR rizo o f [facility] 2022-03-15 2022-03-15 Telephone [facility] 1.2.840.114 [id number] Univers 00:00:00 00:00:00 Tushar Lund PATENT ENGINEER 350.1.13.10 ity of REGIONAL 4.2.7.2.686 Jamal as MATERNAL [id number] Med ical & CHILD [address] [place] [address] 2022-03-10 2022-03-10 Outpatient R FAUZIA [facility] [id number] Univers 11:00:00 11:45:31 EDWIN rizo [facility] 2022-03-10 2022-03-10 Routine Risk, Vyy-Dqoqb-Xx/High [facility] 1. 2.840.114 [id number] Univers 11:00:00 11:45:31 Edwin Cage PATENT ENGINEER 350.1.13.10 ity of Visit REGIONAL 4.2.7.2.686 Jamal as MATERNAL [id number] [facility] & CHILD [address] [place] [address] 2022-03-10 2022-03-10 Outpatient R [facility] [id number] Univers 10:30:00 10:30:00 ity of [facility] 2022-03-07 2022-03-07 Telephone [facility] 1.2.840.114 [id number] Univers 00:00:00 00:00:00 Tushar Lund PATENT ENGINEER 350.1.13.10 ity of REGIONAL 4.2.7.2.686 Jamal as MATERNAL [id number] [facility] & CHILD [address] [place] [address] 2022-03-07 2022-03-07 Case Fauzia [facility] 1.2.840.114 [id number] Univers 00:00:00 00:00:00 Management Edwin Blas PATENT ENGINEER 350.1.13.10 ity of REGIONAL 4.2.7.2.686 Jamal as MATERNAL [id number] Med ical & CHILD [address] [place] [address] 2022-02-24 2022-02-24 Routine Risk, Hcd-Tkgkv-Af/High [facility] 1. 2.840.114 [id number] Univers 10:00:00 11:04:18 Fauzia Edwin Blas PATENT ENGINEER 350.1.13.10 ity of Visit REGIONAL 4.2.7.2.686 Jamal as MATERNAL [id number] [facility] & CHILD [address] [place] [address] 2022-02-24 2022-02-24 Outpatient Angelica FAUZIA [facility] [id number] Univers 10:00:00 11:04:18 [facility] 2022-02-10 2022-02-10 Outpatient [facility] [id number] Univers 13:15:00 13:59:26 [facility] 2022-02-10 2022-02-10 Routine Risk, Pcr-Nlcvc-We/High [facility] 1. 2.840.114 [id number] Univers 13:15:00 13:59:26 Fauzia Edwin Blas PATENT ENGINEER 350.1.13.10 ity of Visit REGIONAL 4.2.7.2.686 Jamal as MATERNAL [id number] [facility] & CHILD [address] [place] [address] 2022-01-27 2022-01-27 Outpatient [facility] [id number] Univers 09:00:00 10:00:53 EDWIN [facility] 2022-01-27 2022-01-27 Routine Risk, Uhh-Wmvwa-Mx/High [facility] 1. 2.840.114 [id number] Univers 09:00:00 10:00:53 CageEdwin PATENT ENGINEER 350.1.13.10 ity of Visit REGIONAL 4.2.7.2.686 Jamal as MATERNAL [id number] [facility] & CHILD [address] [place] [address] 2022-01-10 2022-01-10 [facility] 1.2.840.114 [id number] Univers 00:00:00 00:00:00 Management Antonette Millard PATENT ENGINEER 350.1.13.10 ity of REGIONAL 4.2.7.2.686 Jamal as MATERNAL [id number] [facility] ical & CHILD [address] [place] [address] 2022-01-06 2022-01-06 Product Development Technician Ultrasound, Leonardo [facility] 1.2 .840.114 [id number] Univers 15:15:00 15:45:00 Visit David Cooper PATENT ENGINEER 350.1.13.10 ity of REGIONAL 4.2.7.2.686 Jamal as MATERNAL [id number] Med ical & CHILD 369 [facility] 2022-01-06 2022-01-06 Outpatient P BALBIR [facility] [id number] Univers 15:15:00 15:15:[address] [facility] 2021-12-30 2021-12-30 Outpatient R SARA SNYDER [facility] B [id number] Univers 10:00:00 10:00:00 SARA SNYDER [facility] 2021-12-23 2021-12-23 Outpatient R ENE [facility] [id number] Univers 09:15:00 10:41:00 ANTONETTE [facility] 2021-12-23 2021-12-23 Initial Provider, Neftali [facility] 1 .2.840.114 [id number] Univers 09:15:00 10:41:00 Niki Ralph PATENT ENGINEER 350.1.13.1 0 ity of Visit Antonette Solano [facility] 4.2.7.2.686 [place] MATERNAL [id number] [facility] ical & CHILD 107 [facility] 2021-12-23 2021-12-23 Orders Doctor MESA 1.2.840.114 [id number] Univers 00:00:00 00:00:00 Only Unassigned, TEDDY 350.1.13.10 ity of [place] [facility] 4.2.7.2.686 Jamal as [id number] [address] 2021-12-17 2021-12-17 Case Tiffnai [facility] 1.2.840.114 [id number] Univers 00:00:00 00:00:00 Management Sara DONALDSON 350.1.13.10 ity of [place]2.7.2.[place] [id number] [address] 2021-12-14 2021-12-14 Outpatient R SARA SNYDER [facility] B [id number] Univers 14:55:04 23:59:00 SARA SNYDER [facility] 2021-12-14 2021-12-14 [facility] 1.2.840.114 [id number] Univers 14:55:04 23:59:00 Encounter Sara ALKOL 350.1.13.10 ity of [place] 4.2.7.2.686 [facility] [id number] [facility] [address] [place] 2021-12-14 2021-12-14 Orders Doctor MOSHE 1.2.840.114 [id number] Univers 00:00:00 00:00:00 Only Unassigned, TEDDY 350.1.13.10 ity of [place] [facility] 4.2.7.2.686 Jamal as [id number] [facility] [address] 2021-12-09 2021-12-09 Outpatient R SARA SNYDER [facility] B [id number] Univers 09:00:00 09:43:20 [facility] 2021-12-09 2021-12-09 Initial [facility] [id number] Univers 09:00:00 09:43:20 Dianemikael MENDOZA [id number] i ty of Visit WOMEN'S 4.2.7.2.686 [facility] [phone] [address] 2021-10-12 2021-10-12 [facility] [id number] Univers 13:00:00 13:34:47 Visit Tushar Lund PATENT ENGINEER [id number] ity of [facility] [id number] Jamal as MATERNAL [phone] [facility] ical & CHILD [address] [place] [address] 2021-10-12 2021-10-12 Outpatient R RIKY [facility] [id number] Univers 13:00:00 13:34:47 TUSHAR rizo o [facility] 2021-10-12 2021-10-12 Outpatient R REIDJOHNATHAN, [facility] [id number] Univers 13:00:00 13:00:00 TUSHAR lauren [facility] 2021-10-12 2021-10-12 Outpatient R REIDJOHNATHAN, [facility] [id number] Univers 13:00:00 13:00:00 TUSHAR blancaspenser katz [facility] 2021-10-12 2021-10-12 Orders Doctor MOSHE [id number] Univers 00:00:00 00:00:00 Only Unassigned, TEDDY 350.1.13.10 ity of [place] [facility] [id number] Jamal as [id number] [address] 2021-09-28 2021-09-28 [facility] [id number] Univers 12:45:00 14:31:13 TUSHAR katz [facility] 2021-09-28 2021-09-28 Office [facility] 1.2.103.564 [id number] Univers 12:45:00 14:31:13 Visit Tushar Lund PATENT ENGINEER 350.1.13.10 ity of [facility] 4.2.7.2.686 Jamal as MATERNAL [id number] [facility] ical & CHILD [address] [place] [address] 2021-08-05 2021-08-05 Outpatient JAM DESIR [facility] [id number] Univers 16:15:00 16:15:00 ity [facility] 2021-06-18 2021-06-18 Outpatient Angelica CRUMP [facility] [id number] Univers 11:00:00 11:00:00 [place] itspenser [facility] 2021-06-15 2021-06-15 Orders Doctor MOSHE 1.2.840.114 [id number] Univers 00:00:00 00:00:00 Only Unassigned, TEDDY 350.1.13.10 ity of [place] [facility] 4.2.7.2.686 Jamal as [id number] [address] 2021-03-09 2021-03-09 [facility] [id number] Univers 14:00:00 14:00:00 TUSHAR riosy o f [facility] 2021-03-02 2021-03-02 Telephone [facility] 1.2.840.114 [id number] Univers 00:00:00 00:00:00 Tushar Lund PATENT ENGINEER 350.1.13.10 ity of [facility] 4.2.7.2.686 Jamal as MATERNAL [phone] Med ical & CHILD [address] [place] [address] 2021-02-12 2021-02-12 [facility] 1.2.754.321 [id number] Univers 00:00:00 00:00:00 Ernesto Rosario PATENT ENGINEER 350.1.13.10 it y of [facility] 4.2.7.2.686 Jamal as MATERNAL [id number] Med ical & CHILD [address] [place] [address] 2021-02-11 2021-02-11 Refill [facility] 1.2.380.151 [id number] Univers 00:00:00 00:00:00 Tushar Lnud PATENT ENGINEER 350.1.13.10 ity of [facility] 4.2.7.2.686 Jamal as MATERNAL [id number] Med ical & CHILD [address] [place] [address] 2021-01-27 2021-01-27 [facility] 1.2.057.552 [id number] Univers 00:00:00 00:00:00 Ernesto Rosario PATENT ENGINEER 350.1.13.10 it y of [facility] 4.2.7.2.686 Jamal as MATERNAL [phone] Med ical & CHILD [address] [place] [address] 2021-01-18 2021-01-18 Outpatient [facility] [id number] Univers 16:00:00 16:18:34 ERNESTO rizo of [facility] 2021-01-18 2021-01-18 Office [facility] 1.2.325.345 [id number] Univers 15:59:18 16:18:34 Visit Ernesto Rosario PATENT ENGINEER 350.1.13.10 it y of [facility] 4.2.7.2.686 Jamal as MATERNAL [id number] Med ical & CHILD [address] [facility] 2021-01-18 2021-01-18 Outpatient R MADONNA [facility] [id number] Univers 16:00:00 16:00:00 ERNESTO [facility] 2021-01-15 2021-01-15 Outpatient [facility] [id number] Univers 13:15:00 13:15:00 ERNESTO [facility] 2020-12-11 2020-12-11 Telephone [facility] 1.2.840.114 [id number] Univers 00:00:00 00:00:00 Tushar Lund PATENT ENGINEER 350.1.13.10 ity of [facility] 4.2.7.2.686 Jamal as MATERNAL [phone] [address] 2020-10-20 2020-10-20 Office [facility] 1.2.840.114 [id number] Univers 13:30:06 14:12:47 Visit Niki Dominguez PATENT ENGINEER 350.1.13.10 ity of [facility] 4.2.7.2.686 Jamal as MATERNAL [id number] [address] 2020-10-20 2020-10-20 Outpatient [facility] [id number] Univers 13:30:00 13:30:00 NIKI rizo o [facility] 2020-10-14 2020-10-14 Outpatient [facility] [id number] Univers 15:00:00 15:00:00 TUSHAR ity o f [facility] 2020-10-12 2020-10-12 Office [facility] 1.2.964.824 [id number] Univers 14:17:44 15:03:31 Visit Tushar Lund PATENT ENGINEER 350.1.13.10 ity of [facility] 4.2.7.2.686 Jamal as MATERNAL [id number] [address] 2020-10-12 2020-10-12 Outpatient [facility] [id number] Univers 14:30:00 14:30:00 TUSHAR lauren [facility] 2020-09-28 2020-09-28 Outpatient R RIKY [facility] [id number] Univers 08:30:00 08:30:00 TUSHAR blancaspenser lauren [facility] 2020-09-28 2020-09-28 Telephone [facility] 1.2.840.114 [id number] Univers 00:00:00 00:00:00 Ernesto Rosario PATENT ENGINEER 350.1.13.10 it y of [facility] 4.2.7.2.686 Jamal as MATERNAL [id number] [facility] & CHILD [address] [place] [address] 2020-09-25 2020-09-25 Telephone [facility] 1.2.840.114 [id number] Univers 00:00:00 00:00:00 Tushar C PATENT ENGINEER 350.1.13.10 ity of [facility] 4.2.7.2.686 Jamal as MATERNAL [id number] [facility] & CHILD [address] [place] [address] 2020-09-24 2020-09-24 Office [facility] 1.2.617.426 [id number] Univers 14:14:05 14:29:05 Visit Tushar C PATENT ENGINEER 350.1.13.10 ity of [facility] 4.2.7.2.686 Jamal as MATERNAL [id number] [facility] & [address] 2020-09-24 2020-09-24 Outpatient R RIKY [facility] [id number] Univers 14:15:00 14:15:00 TUSHAR darrius gianna lauren [facility] 2020-09-08 2020-09-08 Outpatient R MADONNA [facility] [id number] Univers 16:00:00 16:00:00 ERNESTO rizo of [facility] 2020-08-18 2020-08-18 Routine [facility] 1.2.495.108 [id number] Univers 13:04:51 13:45:53 Tushar C PATENT ENGINEER 350.1.13.10 ity of Visit [facility] 4.2.7.2.686 Jamal as MATERNAL [id number] [facility] & CHILD [address] [place] [address] 2020-08-18 2020-08-18 Outpatient R RIKY [facility] [id number] Univers 13:15:00 13:15:00 TUSHAR lauren [facility] 2020-08-06 2020-08-06 Outpatient R [facility] [id number] Univers 11:00:00 11:00:00 ERNESTO rizo of [facility] 2020-08-06 2020-08-06 [facility] 1.2 .840.114 [id number] Univers 08:21:04 09:08:19 Visit Tushar Lan PATENT ENGINEER 350.1.13. 10 ity of [facility] 4.2.7.2.686 Jamal as MATERNAL [id number] Med ical & CHILD [address] [place] [address] 2020-08-06 2020-08-06 Outpatient R RIKY [facility] [id number] Univers 09:00:00 09:00:00 TUSHAR lauren [facility] 2020-08-04 2020-08-04 Telephone [facility] 1.2.840.114 [id number] Univers 00:00:00 00:00:00 Ernesto Rosario PATENT ENGINEER 350.1.13.10 it y of [facility] 4.2.7.2.686 Jamal as MATERNAL [phone] Med ical & CHILD [address] [place] [address] 2020-08-01 2020-08-01 1.2.840.1 1.2.840.114 [id number] Univers 00:00:00 00:00:00 Encounter 15970.1.1 350.1.13.10 ity of 3[place]104.2.[place][id number] 570 [facility] 2020-07-26 2020-07-28 [facility] Rosio Breen [facility] 1.2.840.11 [id number] Univers 14:30:00 17:45:00 Encounter [place] Arzola [place] 350.1.13.10 ity of [place] 4.2.7.2.686 [place] [facility] [id number] [address] 2020-07-27 2020-07-27 Anesthesia [facility] 1.2.840.114 [id number] Univers 10:49:00 16:19:00 Event Dylan Heller 350.1.13.10 ity of [place] 4.2.7.2.686 [facility] [id number] [address] 2020-07-26 2020-07-26 Anesthesia Tariqroya, [facility] 1.2.840.114 [id number] Univers 19:50:09 19:50:09 Event Angelica Heller 350.1.13.10 i ty of [place] 4.2.7.2.686 [facility] [id number] [address] 2020-07-21 2020-07-21 Routine [facility] 1.2.439.814 [id number] Univers 12:46:13 13:17:55 Ernesto N PATENT ENGINEER 350.1.13.10 i ty of Visit [facility] 4.2.7.2.686 Jamal as MATERNAL [phone] [facility] ical & CHILD [address] [place] [address] 2020-07-21 2020-07-21 Outpatient Angelica [facility] [id number] Univers 12:45:00 12:45:00 ERNESTO rizo [facility] 2020-07-12 2020-07-12 [facility] 1.2.840.114 [id number] Univers 02:00:00 03:20:00 Encounter Hetal Mario Grisel 350.1.13.10 ity of [place] 4.2.7.2.686 [facility] [id number] [address] 2020-07-07 2020-07-07 Routine [facility] 1.2.247.852 [id number] Univers 10:39:36 11:15:55 Ernesto N PATENT ENGINEER 350.1.13.10 i ty of Visit [facility] 4.2.7.2.686 Jamal as MATERNAL [id number] [facility] & CHILD [address] [place] [address] 2020-07-07 2020-07-07 Outpatient Angelica [facility] [id number] Univers 10:45:00 10:45:00 ERNESTO rizo [facility] 2020-06-26 2020-06-26 Telephone Riky [facility] 1.2.840.114 [id number] Univers 00:00:00 00:00:00 Tushar Lund PATENT ENGINEER 350.1.13.10 ity of [facility] 4.2.7.2.686 Jamal as MATERNAL [id number] [facility] & [address] 2020-06-23 2020-06-23 Routine [facility] 1.2.150.124 [id number] Univers 14:10:30 14:38:56 Ernesto Rosario PATENT ENGINEER 350.1.13.10 i ty of Visit [facility] 4.2.7.2.686 Jamal as MATERNAL [id number] [address] 2020-06-23 2020-06-23 Outpatient R [facility] [id number] Univers 14:15:00 14:15:00 ERNESTOSHARMILA rizo [facility] 2020-06-11 2020-06-11 Orders Doctor MESA 1.2.840.114 [id number] Univers 00:00:00 00:00:00 Only Unassigned, TEDDY 350.1.13.10 ity of [place] [facility] 4.2.7.2.686 Jamal as [id number] [address] 2020-06-09 2020-06-09 Routine Niki Ralph [facility] 1.2.840 .114 [id number] Univers 14:16:51 14:55:17 Ernesto Peacock PATENT ENGINEER 350.1.13.10 ity of Visit [facility] 4.2.7.2.686 Jamal as MATERNAL [id number] [address] 2020-06-09 2020-06-09 Outpatient R [facility] [id number] Univers 14:15:00 14:15:00 ERNESTO blancaspenser [facility] 2020-06-02 2020-06-02 Orders Doctor MESA 1.2.840.114 [id number] Univers 00:00:00 00:00:00 Only Unassigned, TEDDY 350.1.13.10 ity of [place] [facility] 4.2.7.2.686 Jamal as [id number] [address] 2020-06-01 2020-06-01 Refill Riky [facility] 1.2.131.602 [id number] Univers 00:00:00 00:00:00 Tushar Lund PATENT ENGINEER 350.1.13.10 ity of [facility] 4.2.7.2.686 Jamal as MATERNAL [id number] [facility] ical & CHILD [address] [place] [address] 2020-05-21 2020-05-21 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 114 [id number] Univers 12:58:26 13:13:26 Visit Tushar Lan PATENT ENGINEER 350.1.13. 10 ity of [facility] 4.2.7.2.686 Jamal as MATERNAL [id number] [address] 2020-05-21 2020-05-21 Outpatient R RIKY [facility] [id number] Univers 13:00:00 13:00:00 TUSHAR rizo o f [facility] 2020-05-19 2020-05-19 Routine [facility] 1.2.117.627 [id number] Univers 12:45:26 13:11:32 Ernesto Rosario PATENT ENGINEER 350.1.13.10 i ty of Visit [facility] 4.2.7.2.686 Jamal as MATERNAL [id number] [address] 2020-05-19 2020-05-19 Outpatient R MADONNA [facility] [id number] Univers 12:45:00 12:45:00 ERNESTO rizo of [facility] 2020-05-19 2020-05-19 Patient Tim [facility] 1.2.840.114 [id number] Univers 00:00:00 00:00:00 Outreach Jeffery MACDONALD 350.1.13.10 i ty of [facility] 4.2.7.2.686 [place] [id number] [address] 2020-04-23 2020-04-23 Routine [facility] 1.2.261.723 [id number] Univers 15:54:18 16:11:16 Ernesto Rosario PATENT ENGINEER 350.1.13.10 i ty of Visit [facility] 4.2.7.2.686 Jamal as MATERNAL [id number] [facility] ical & CHILD 107 [facility] 2020-04-23 2020-04-23 Outpatient R MADONNA [facility] [id number] Univers 16:00:00 16:00:00 ERNESTO rizo [facility] 2020-04-14 2020-04-14 Outpatient [facility] [id number] Univers 12:45:00 12:45:00 ERNESTO rizo [facility] 2020-04-09 2020-04-09 Product Development Technician [facility] 1.2 .840.114 [id number] Univers 13:55:54 14:54:41 Visit Radha Charlton PATENT ENGINEER 350.1.13.10 ity of [place] [address].2.7.2.686 Jamal as MATERNAL [id number] [facility] & CHILD 369 [facility] 2020-04-09 2020-04-09 Outpatient P [facility] [id number] Univers 14:00:00 14:00:00 ity [facility] 2020-04-07 2020-04-07 Telephone MadonnaCAMILLA, UTSOLE 1.2.840.114 [id number] Univers 00:00:00 00:00:00 Ernesto Rosario PATENT ENGINEER 350.1.13.10 it y of [facility] 4.2.7.2.686 Jamal as MATERNAL [id number] [facility] & CHILD [address] [place] [address] 2020-03-26 2020-03-26 Orders Doctor MESA 1.2.840.114 [id number] Univers 00:00:00 00:00:00 Only UnassignedTEDDY 350.1.13.10 ity of [place] [facility] 4.2.7.2.686 Jamal as [id number] [address] 2020-03-17 2020-03-17 Routine [facility] 1.2.255.707 [id number] Univers 12:49:30 13:34:04 Ernesto N PATENT ENGINEER 350.1.13.10 i ty of Visit [facility] 4.2.7.2.686 Jamal as MATERNAL [id number] Med ical & CHILD [address] [place] [address] 2020-03-17 2020-03-17 Outpatient R [facility] [id number] Univers 13:00:00 13:00:00 ERNESTO rizo [facility] 2020-02-25 2020-02-25 Telephone [facility] 1.2.840.114 [id number] Univers 00:00:00 00:00:00 Ernesto N PATENT ENGINEER 350.1.13.10 it y of [facility] 4.2.7.2.686 Jamal as MATERNAL [id number] Med ical & CHILD [address] [place] [address] 2020-02-18 2020-02-18 Outpatient R [facility] [id number] Univers 14:45:00 14:45:00 ERNESTO rizo [facility] 2020-02-18 2020-02-18 Routine [facility] 1.2.269.640 [id number] Univers 14:09:04 14:39:35 Ernesto N PATENT ENGINEER 350.1.13.10 i ty of Visit [facility] 4.2.7.2.686 Jamal as MATERNAL [id number] Med ical & CHILD [address] [place] [address] 2020-02-03 2020-02-03 [facility] 1.2.840.114 [id number] Univers 00:00:00 00:00:00 Tushar Lund PATENT ENGINEER 350.1.13.10 ity of [facility] 4.2.7.2.686 Jamal as MATERNAL [id number] Med ical & CHILD [address] [place] [address] 2020-02-03 2020-02-03 Refill Doctor [facility] 1.2.840.114 [id number] Univers 00:00:00 00:00:00 Unassigned, PATENT ENGINEER 350.1.13.10 ity of [place] [facility] 4.2.7.2.686 Jamal as MATERNAL [phone] Med ical & CHILD [address] [place] [address] 2020-01-21 2020-01-21 Routine [facility] 1.2.823.804 [id number] Univers 15:20:02 16:02:58 Ernesto Rosario PATENT ENGINEER 350.1.13.10 i ty of Visit [facility] 4.2.7.2.686 Jamal as MATERNAL [id number] Med ical & CHILD [address] [place] [address] 2020-01-21 2020-01-21 Outpatient R MADONNA [facility] [id number] Univers 15:30:00 15:30:00 ERNESTO rizo of [facility] 2020-01-18 2020-01-18 Refill Doctor [facility] 1.2.840.114 [id number] Univers 00:00:00 00:00:00 Unassigned, PATENT ENGINEER 350.1.13.10 ity of [place] [facility] 4.2.7.2.686 Jaaml as MATERNAL [id number] Med ical & CHILD [address] [place] [address] 2020-01-09 2020-01-09 Product Development Technician Ultrasound, Leonardo [facility] 1.2 .840.114 [id number] Univers 14:52:31 15:17:04 Visit Shereen Travis PATENT ENGINEER 350.1.13.10 ity of [facility] 4.2.7.2.686 Jamal as MATERNAL [phone] Med ical & CHILD 369 [facility] 2020-01-09 2020-01-09 Outpatient P [facility] [id number] Univers 14:45:00 14:45:00 ity of [facility] 2020-01-09 2020-01-09 Abstract Madonna [facility] 1.2.840.114 [id number] Univers 00:00:00 00:00:00 Ernesto Rosario PATENT ENGINEER 350.1.13.10 it y of [facility] 4.2.7.2.686 Jamal as MATERNAL [id number] Med ical & CHILD [address] [place] [address] 2019-12-27 2019-12-27 Telephone Riky [facility] 1.2.840.114 [id number] Univers 00:00:00 00:00:00 Tushar Lund PATENT ENGINEER 350.1.13.10 ity of [facility] 4.2.7.2.686 Jamal as MATERNAL [id number] Med ical & CHILD [address] [place] [address] 2019-12-26 2019-12-26 Initial Madonna [facility] 1.2.387.996 [id number] Univers 13:39:00 15:06:17 Ernesto Rosario PATENT ENGINEER 350.1.13.10 i ty of Visit [facility] 4.2.7.2.686 Jamal as MATERNAL [id number] Med ical & CHILD [address] [place] [address] 2019-12-26 2019-12-26 Outpatient R MADONNA [facility] [id number] Univers 13:45:00 13:45:00 ERNESTO rizo of [facility] 2019-12-26 2019-12-26 Orders Doctor MOSHE 1.2.840.114 [id number] Univers 00:00:00 00:00:00 Only Unassigned, TEDDY 350.1.13.10 ity of [place] [facility] 4.2.7.2.686 Jamal as [id number] [address] 2019-12-09 2019-12-09 Outpatient [facility] [id number] Univers 13:15:00 13:15:00 TUSHAR rizo o f [facility] 2019-10-28 2019-10-28 Telephone [facility] 1.2.840.114 [id number] 00:00:00 00:00:00 Tushar Lund PATENT ENGINEER 350.1.13.10 [facility] 4.2.7.2.686 MATERNAL [id number] & CHILD [address] [place] [address] 2019-10-28 2019-10-28 Telephone [facility] 1.2.840.114 [id number] Univers 00:00:00 00:00:00 Tushar C PATENT ENGINEER 350.1.13.10 ity of [facility] 4.2.7.2.686 Jamal as MATERNAL [id number] [facility] & CHILD [address] [place] [address] 2019-10-09 2019-10-09 Office [facility] 1.2.741.718 [id number] Univers 08:16:20 08:48:41 Visit Tushar Lund PATENT ENGINEER 350.1.13.10 ity of [facility] 4.2.7.2.686 Jamal as MATERNAL [id number] [facility] ical & CHILD [address] [place] [address] 2019-10-09 2019-10-09 Office [facility] 1.2.336.407 [id number] 08:16:20 08:48:41 Visit Tushar C PATENT ENGINEER 350.1.13.10 [facility] 4.2.7.2.686 MATERNAL [id number] & CHILD [address] [place] [address] 2019-10-09 2019-10-09 [facility] [id number] Univers 08:15:00 08:15:00 TUSHAR ity o f [facility] 2019-10-07 2019-10-07 Outpatient R AKINPE, [facility] [id number] Univers 10:30:00 10:30:00 TUSHAR ity o f [facility] 2019-09-27 2019-09-27 Telephone [facility] 1.2.840.114 [id number] Univers 00:00:00 00:00:00 Tushar C PATENT ENGINEER 350.1.13.10 ity of [facility] 4.2.7.2.686 Jamal as MATERNAL [id number] Med ical & CHILD [address] [place] [address] 2019-09-25 2019-09-25 [facility] 1.2.427.669 [id number] Univers 00:00:00 00:00:00 Tushar C PATENT ENGINEER 350.1.13.10 ity of [facility] 4.2.7.2.686 Jamal as MATERNAL [id number] Med ical & CHILD [address] [place] [address] 2019-08-19 2019-08-19 Telephone [facility] 1.2.840.114 [id number] Univers 00:00:00 00:00:00 Tushar C PATENT ENGINEER 350.1.13.10 ity of [facility] 4.2.7.2.686 Jamal as MATERNAL [id number] Med ical & CHILD [address] [place] [address] 2019-08-16 2019-08-16 [facility] 1.2.402.386 [id number] Univers 00:00:00 00:00:00 Management Selam PATENT ENGINEER 350.1.13.10 ity of [facility] 4.2.7.2.686 Jamal as MATERNAL [id number] Med ical & CHILD [address] [facility] 2019-08-15 2019-08-15 Office Provider, Tk-Rmchp Mike [facility] 1 .2.840.114 [id number] Univers 10:43:37 11:14:30 Visit Selam Alves PATENT ENGINEER 350.1.13.10 ity of [facility] 4.2.7.2.686 Jamal as MATERNAL [id number] [facility] ical & CHILD 107 [facility] 2019-08-15 2019-08-15 Outpatient R LILLIAM [facility] [id number] Univers 10:45:00 10:45:00 SELAM lauren [facility] 2019-07-23 2019-07-23 Telephone [facility] 1.2.840.114 [id number] Univers 00:00:00 00:00:00 Tushar Lund PATENT ENGINEER 350.1.13.10 ity of [facility] 4.2.7.2.686 Jamal as MATERNAL [id number] [facility] ical & CHILD [address] [place] [address] 2019-07-19 2019-07-19 Orders Doctor MOSHE 1.2.840.114 [id number] Univers 00:00:00 00:00:00 Only Unassigned, TEDDY 350.1.13.10 ity of [place] [facility] 4.2.7.2.686 Jamal as [id number] [address] 2019-07-08 2019-07-08 Telemedici [facility] 1.2.840.114 [id number] Univers 07:39:54 09:35:12 ne Visit Tushar Lund PATENT ENGINEER 350.1.13.10 ity of [facility] 4.2.7.2.686 Jamal as MATERNAL [id number] [facility] & CHILD [address] [place] [address] 2019-07-08 2019-07-08 Outpatient R RIKY [facility] [id number] Univers 09:30:00 09:30:00 TUSHAR lauren [facility] 2019-07-05 2019-07-05 Telephone Riky [facility] 1.2.840.114 [id number] Univers 00:00:00 00:00:00 Tushar Lund PATENT ENGINEER 350.1.13.10 ity of [facility] 4.2.7.2.686 Jamal as MATERNAL [phone] [facility] & CHILD [address] [place] [address] 2019-04-29 2019-04-29 [facility] 1.2.840.114 [id number] Univers 00:00:00 00:00:00 Tushar Lund PATENT ENGINEER 350.1.13.10 ity of [facility] 4.2.7.2.686 Jamal as MATERNAL [phone] [facility] & CHILD [address] [place] [address] 2019-04-01 2019-04-01 [facility] 1.2.840.114 [id number] Univers 00:00:00 00:00:00 Tushar Ashely PATENT ENGINEER 350.1.13.10 ity of [facility] 4.2.7.2.686 Jamal as MATERNAL [phone] [facility] & [address] 2019 2019 Office [facility] [id number] [id number] Univers 10:39:31 11:16:49 Visit Tushar Lund PATENT ENGINEER 350.1.13.10 ity of [facility] 4.2.7.2.686 Jamal as MATERNAL [phone] [facility] & CHILD [address] [place] [address] 2019 2019 Orders Doctor MOSHE 1.2.840.114 [id number] Univers 00:00:00 00:00:00 Only Unassigned, TEDDY 350.1.13.10 ity of [place] [facility] 4.2.7.2.686 Jamal as [phone] [address] 2018-12-20 2018-12-20 Office Riky, 1.2.840.7 [id number] Univers 09:37:41 10:39:11 Visit Tushar Lund 62564.1.1 i ty of 3.104.2.7 [place] .3.547506 [facility] .[facility] [place] 2018-12-20 2018-12-20 Telephone Riky, 1.2.840.0 [id number] Univers 00:00:00 00:00:00 Tushar Lund 97345.1.1 i ty of 3.104.2.7 [place] .3.494370 Medica l .8 [place] 2018-12-20 2018-12-20 Orders Doctor 1.2.840.7 [id number] Univers 00:00:00 00:00:00 Only Unassigned, 55120.1.1 ity of [place] 3.104.2.7 [place] .3.847114 Medica l .8 Branch Results Test Description Test Time Test Comments Results Result Comments Source CBC with Differential 2022-07-25 11:42:42 Test Item Value Reference Range Interpretation Comme nts WBC (test code = 6690-2) 10.01 See_Comment [A utomated message] The system which ge nerated this result transmit brendan reference range: 4.30 - 1 1.10 10*3/?L. The reference r yancy was not used to interpr et this result as normal/abnor mal. RBC (test code = 789-8) 3.75 See_Comment L [Au tomated message] The system which ge nerated this result transmit brendan reference range: 3.93 - 5 .25 10*6/?L. The reference r yancy was not used to interpr et this result as normal/abnor mal. HGB (test code = 718-7) 8.3 g/dL 11.6-15.0 L HCT (test code = 4544-3) 26.8 % 35.7-45.2 L MCV (test code = 787-2) 71.5 fL 80.6-95.5 L MCH (test code = 785-6) 22.1 pg 25.9-32.8 L MCHC (test code = 786-4) 31.0 g/dL 31.6-35.1 L RDW-SD (test code = 32884-6) 38.7 fL 39.0-49.9 L RDW-CV (test code = 788-0) 15.1 % 12.0-15.5 PLT (test code = 777-3) 338 See_Comment [Au tomated message] The system which ge nerated this result transmit brendan reference range: 166 - 35 8 10*3/?L. The reference range was not used to interpret th is result as normal/abnormal . MPV (test code = 98106-0) 10.1 fL 9.5-12.9 NRBC/100 WBC (test code = 0.0 See_Comment [ Automated message] The 2121866932) system which [employer] nerated this result transmit brendan reference range: 0.0 - 10 .0 /100 WBCs. The reference r yancy was not used to interpr et this result as normal/abnor mal. NRBC x10^3 (test code = See_Comment [Au tomated message] The 6876854144) system which [employer] nerated this result transmit brendan reference range: 10*3/?L. The reference range was not u sed to interpret this result as normal/abnormal . GRAN MAT (NEUT) % (test code 72.3 % = 770-8) IMM GRAN % (test code = 0.90 % 7686119815) LYMPH % (test code = 736-9) 18.3 % MONO % (test code = 5905-5) 5.8 % EOS % (test code = 713-8) 2.5 % BASO % (test code = 706-2) 0.2 % GRAN MAT x10^3(ANC) (test 7.24 10*3/uL 1.88-7.09 H code = 5590228971) IMM GRAN x10^3 (test code = 0.09 10*3/uL 0.00-0.06 H 4190756910) LYMPH x10^3 (test code = 1.83 10*3/uL 1.32-3.29 731-0) MONO x10^3 (test code = 0.58 10*3/uL 0.33-0.92 742-7) EOS x10^3 (test code = 0.25 10*3/uL 0.03-0.39 711-2) BASO x10^3 (test code = 0.01-0.07 704-7) Lab Interpretation (test Abnormal code = 57213-0) [id number][facility] 03:39:13 Test Item Value Reference Range Interpretation Comments NA (test code = 138 mmol/L 135-145 3597773534) K (test code = 3.1 mmol/L 3.5-5.0 L 9614113054) CL (test code = 109 mmol/L 98-108 H 9573705033) CO2 TOTAL (test code = 21 mmol/L 23-31 L 3653130423) AGAP (test code = 8 2-16 0075835278) BUN (test code = 12 mg/dL 7-23 7254415134) GLUCOSE (test code = 100 mg/dL 70-110 1254636988) CREATININE (test code = 0.44 mg/dL 0.50-1.04 L 4032681884) TOTAL BILI (test code = 1.1 mg/dL 0.1-1.3 6890449521) CALCIUM (test code = 8.1 mg/dL 8.6-10.6 L 4793237195) T PROTEIN (test code = 6.1 g/dL 6.3-8.2 L 4594074904) ALBUMIN (test code = 2.9 g/dL 3.5-5.0 L 6846800300) ALK PHOS (test code = 101 U/L 34-122 6696429713) ALTv (test code = 11 U/L 5-35 1742-6) AST(SGOT) (test code = 19 U/L 13-40 5329198563) eGFR (test code = 182.3 mL/min/1.73m2 4154750805) ARGENIS (test code = ARGENIS) Association of Glomerular Filtration Rate (GFR) and Staging of Kidney Disease* + --+ --+ ------+| GFR (mL/min/1.73 m2) ?| With Kidney Damage ?| ?Without Kidney Damage+ --------+ --------+ +| ?>90 ?| ?Stage one ?| ? Normal ?+ ---+ ---+ -------+| ?60-89 ?| ?Stage two ?| ? Decreased GFR ? + --+ --+ ------+| ?30-59 ?| ?Stage three ?| ? Stage three ? + --+ --+ ------+| ?15-29 ?| ?Stage four ? | ? Stage four ?+ ---+ ---+ -------+| ?<15 (or dialysis) ? ?| ?Stage five ? | ? Stage five ?+ ---+ ---+ -------+ *Each stage assumes the associated GFR level has been in effect for at least three months. ?Stages 1 to 5, with or without kidney disease, indicate chronic kidney disease. Notes: Determination of stages one and two (with eGFR >59mL/min/1.73 m2) requires estimation of kidney damage for at least three months as defined by structural or functional abnormalities of the kidney, manifested by either:Pathological abnormalities or Markers of kidney damage (including abnormalities in the composition of the blood or urine or abnormalities in imaging tests). Lab Interpretation Abnormal (test code = 04900-3) [facility] WITH [id number] 03:29:32 Test Item Value Reference Range Interpretation Comments WBC (test code = 9.87 See_Comment [Automated 5901-2) message] The sy stem which generated this result transmitted reference range : 4.30 - 11.10 10*3/?L. The reference range was not used to interpret this result as normal/abnormal . RBC (test code = 3.57 See_Comment L [Automated 679-8) message] The sy stem which generated this result transmitted reference range : 3.93 - 5.25 10*6/?L. The reference range was not used to interpret this result as normal/abnormal . HGB (test code = 8.1 g/dL 11.6-15.0 L 718-7) HCT (test code = 25.5 % 35.7-45.2 L 4544-3) MCV (test code = 71.4 fL 80.6-95.5 L 787-2) MCH (test code = 22.7 pg 25.9-32.8 L 785-6) MCHC (test code = 31.8 g/dL 31.6-35.1 786-4) RDW-SD (test code = 38.3 fL 39.0-49.9 L 89278-9) RDW-CV (test code = 15.1 % 12.0-15.5 788-0) PLT (test code = 279 See_Comment [Automated 777-3) message] The sy stem which generated this result transmitted reference range : 166 - 358 10*3/ ?L. The reference r yancy was not used to interpret this result as normal/abnormal . MPV (test code = 10.3 fL 9.5-12.9 66640-0) NRBC/100 WBC (test 0.0 See_Comment [Automat ed code = 8190226563) message] The system which generated this result transmitted reference range : 0.0 - 10.0 /100 WBCs. The refer ence range was not u sed to interpret th is result as normal/abnormal . NRBC x10^3 (test code See_Comment [Auto mated = 8260995050) message] The s ystem which generated this result transmitted reference range : 10*3/?L. The reference range was not used to interpret this result as normal/abnormal . GRAN MAT (NEUT) % 80.7 % (test code = 770-8) IMM GRAN % (test code 0.70 % = 9231896320) LYMPH % (test code = 11.3 % 736-9) MONO % (test code = 4.9 % 5905-5) EOS % (test code = 2.2 % 713-8) BASO % (test code = 0.2 % 706-2) GRAN MAT x10^3(ANC) 7.96 10*3/uL 1.88-7.09 H (test code = 1308158395) IMM GRAN x10^3 (test 0.07 10*3/uL 0.00-0.06 H code = 9979843554) LYMPH x10^3 (test code 1.12 10*3/uL 1.32-3.29 L = 731-0) MONO x10^3 (test code 0.48 10*3/uL 0.33-0.92 = 742-7) EOS x10^3 (test code = 0.22 10*3/uL 0.03-0.39 711-2) BASO x10^3 (test code 0.01-0.07 = 704-7) Lab Interpretation Abnormal (test code = 95957-4) [facility] [id number] 00:24:07 Test Item Value Reference Range Interpretation Comments RHIG CANDIDATE? No- see comment Patient i s not a (test code = candidate for R hIg- 5188) Patient is Rh Positive.Perfor med at [facility] Laboratory Services - [facility] Blood [address] [place] [id number] Free: [phone] A No. [id number] [facility] with [id number] 11:22:51 Test Item Value Reference Range Interpretation Comments WBC (test code = 21.75 See_Comment H [Automated 6690-2) message] The system which generated this result transmit brendan reference range : 4.30 - 11.10 10*3/?L. The reference range was not used to interpret this result as normal/abnormal . RBC (test code = 3.93 See_Comment [Automated 789-8) message] The system which generated this result [...] (test code = 37.8 fL 39.0-49.9 L 37738-6) RDW-CV (test code = 14.6 % 12.0-15.5 788-0) PLT (test code = 216 See_Comment [Automated 777-3) message] The system which generated this result transmit brendan reference range : 166 - 358 10*3/ ?L. The reference range was not u sed to interpret th is result as normal/abnormal . MPV (test code = 10.8 fL 9.5-12.9 93507-5) NRBC/100 WBC (test 0.0 See_Comment [Automat ed code = 9926948557) message] The system which generated this result transmit brendan reference range : 0.0 - 10.0 /100 WBCs. The reference range was not used to interpret this result as normal/abnormal . NRBC x10^3 (test code See_Comment [Auto mated = 0591137615) message] The system which generated this result transmit brendan reference range : 10*3/?L. The reference range was not used to interpret this result as normal/abnormal . SEG % (test code = 83 % 33-76 H 76319-0) BAND % (test code = 9 % 0-1 H 39648-7) LYMPH % (test code = 8 % 14-54 L 45250-8) ANC (test code = 20.01 10*3/uL 1.88-7.09 H 753-4) Lab Interpretation Abnormal (test code = 33458-2) [facility] with [id number] 11:22:51 Test Item Value Reference Range Interpretation Comments WBC (test code = 21.75 See_Comment H [Automated 6690-2) message] The system which generated this result transmit brendan reference range : 4.30 - 11.10 10*3/?L. The reference range was not used to interpret this result as normal/abnormal . RBC (test code = 3.93 See_Comment [Automated 789-8) message] The system which generated this result [...] (test code = 37.8 fL 39.0-49.9 L 39553-2) RDW-CV (test code = 14.6 % 12.0-15.5 788-0) PLT (test code = 216 See_Comment [Automated 777-3) message] The system which generated this result transmit brendan reference range : 166 - 358 10*3/ ?L. The reference range was not u sed to interpret th is result as normal/abnormal . MPV (test code = 10.8 fL 9.5-12.9 73856-8) NRBC/100 WBC (test 0.0 See_Comment [Automat ed code = 5683449941) message] The system which generated this result transmit brendan reference range : 0.0 - 10.0 /100 WBCs. The reference range was not used to interpret this result as normal/abnormal . NRBC x10^3 (test code See_Comment [Auto mated = 1109133033) message] The system which generated this result transmit brendan reference range : 10*3/?L. The reference range was not used to interpret this result as normal/abnormal . SEG % (test code = 83 % 33-76 H 82726-7) BAND % (test code = 9 % 0-1 H 71642-7) LYMPH % (test code = 8 % 14-54 L 03131-3) ANC (test code = 20.01 10*3/uL 1.88-7.09 H 753-4) Lab Interpretation Abnormal (test code = 06677-6) [facility] URINALYSIS W SPECIFIC [id number] 19:23:00 Test Item Value Reference Range Interpretation [...] U APPEAR (test code = 3267) . [facility] URINALYSIS W SPECIFIC [id number] 19:48:00 Test Item Value Reference Range Interpretation [...] U APPEAR (test code = 3267) . [facility] URINALYSIS W SPECIFIC [id number] 18:04:00 Test Item Value Reference Range Interpretation [...] U APPEAR (test code = 3267) . [facility] with [id number] 04:55:42 Test Item Value Reference Range Interpretation Comments WBC (test code = 12.52 See_Comment H [Automated 0987-2) message] The sy stem which generated this result transmitted reference range : 4.30 - 11.10 10*3/?L. The reference range was not used to interpret this result as normal/abnormal . RBC (test code = 4.28 See_Comment [Automated 297-8) message] The sy stem which generated this [...] RDW-SD (test code = 39.8 fL 39.0-49.9 86009-8) RDW-CV (test code = 13.8 % 12.0-15.5 788-0) PLT (test code = 287 See_Comment [Automated 777-3) message] The sy stem which generated this result transmitted reference range : 166 - 358 10*3/ ?L. The reference r yancy was not used to interpret this result as normal/abnormal . MPV (test code = 11.0 fL 9.5-12.9 67892-6) NRBC/100 WBC (test 0.0 See_Comment [Automat ed code = 5326066618) message] The system which generated this result transmitted reference range : 0.0 - 10.0 /100 WBCs. The refer ence range was not u sed to interpret th is result as normal/abnormal . NRBC x10^3 (test code See_Comment [Auto mated = 2932989672) message] The s ystem which generated this result transmitted reference range : 10*3/?L. The reference range was not used to interpret this result as normal/abnormal . GRAN MAT (NEUT) % 68.4 % (test code = 770-8) IMM GRAN % (test code 1.10 % = 0234199390) LYMPH % (test code = 19.6 % 736-9) MONO % (test code = 6.5 % 5905-5) EOS % (test code = 3.8 % 713-8) BASO % (test code = 0.6 % 706-2) GRAN MAT x10^3(ANC) 8.56 10*3/uL 1.88-7.09 H (test code = 9351745229) IMM GRAN x10^3 (test 0.14 10*3/uL 0.00-0.06 H code = 3729854059) LYMPH x10^3 (test code 2.46 10*3/uL 1.32-3.29 = 731-0) MONO x10^3 (test code 0.82 10*3/uL 0.33-0.92 = 742-7) EOS x10^3 (test code = 0.47 10*3/uL 0.03-0.39 H 711-2) BASO x10^3 (test code 0.07 10*3/uL 0.01-0.07 = 704-7) Lab Interpretation Abnormal (test code = 94464-4) [facility] [id number] 04:31:20 Test Item Value Reference Range Interpretation Comments GLUC 1 HR (test code = 6854612329) 72 mg/dL 120-170 L Lab Interpretation (test code = Abnormal 06780-2) [facility] URINALYSIS W SPECIFIC [id number] 20:18:00 Test Item Value Reference Range Interpretation [...] U APPEAR (test code = 3267) . [facility] URINALYSIS W SPECIFIC [id number] 20:18:00 Test Item Value Reference Range Interpretation [...] U APPEAR (test code = 3267) . [facility] URINALYSIS W SPECIFIC [id number] 17:24:00 Test Item Value Reference Range Interpretation [...] U APPEAR (test code = 3267) . [facility] URINALYSIS W SPECIFIC [id number] 16:03:00 Test Item Value Reference Range Interpretation [...] U APPEAR (test code = 3267) . [facility] URINALYSIS W SPECIFIC [id number] 17:19:00 Test Item Value Reference Range Interpretation Comments POCT U SP GRAV (test code = . 1.005-1.025 3255) POCT PH U (test code = 3254) 5 mg/dl 5-8 POCT U LEUK EST (test code = negative Negative - Negative 3) POCT U NIT (test code = 3262) [...] U APPEAR (test code = 3267) . [facility] URINALYSIS W SPECIFIC [id number] 17:19:00 Test Item Value Reference Range Interpretation Comments POCT U SP GRAV (test code = . 1.005-1.025 3255) POCT PH U (test code = 3254) 5 mg/dl 5-8 POCT U LEUK EST (test code = negative Negative - Negative 3) POCT U NIT (test code = 3262) [...] U APPEAR (test code = 3267) . [facility] URINALYSIS W SPECIFIC [id number] 16:39:00 Test Item Value Reference Range Interpretation [...] POCT U APPEAR (test code = 3267) [facility] URINALYSIS W SPECIFIC [id number] 19:37:00 Test Item Value Reference Range Interpretation [...] U APPEAR (test code = 3267) . [facility] URINALYSIS W SPECIFIC [id number] 15:33:00 Test Item Value Reference Range Interpretation [...] U APPEAR (test code = 3267) . [facility] [id number] 14:34:00 Test Item Value Reference Range Interpretation Comments POCT PREG (test code = 1605) Positive On board controls acceptable with C Yes Line (test code = 3574) POCT PREG LOT # (test code = 3575) POCT PREG TEST DATE (test code = 357) [facility] URINALYSIS W/O SPECIFIC [id number] 14:34:00 Test Item Value Reference Range Interpretation [...] code = 3257) negative Negative - Negative [facility] [id number] 14:34:00 Test Item Value Reference Range Interpretation Comments POCT PREG (test code = 1605) Positive On board controls acceptable with C Yes Line (test code = 3574) POCT PREG LOT # (test code = 3575) POCT PREG TEST DATE (test code = 3576) [facility] URINALYSIS W/O SPECIFIC [id number] 14:34:00 Test Item Value Reference Range Interpretation [...] code = 3257) negative Negative - Negative [facility] [id number] 14:31:00 Test Item Value Reference Range Interpretation Comments POCT PREG (test code = 1605) Positive On board controls acceptable with C Yes Line (test code = 3574) POCT PREG LOT # (test code = 3575) POCT PREG TEST DATE (test code = 3576) [facility] [id number] 18:26:00 Test Item Value Reference Range Interpretation Comments POCT PREG (test code Negative = 1605) On board controls Yes acceptable with C Line (test code = 3574) POCT PREG LOT # (test code = 3575) POCT PREG TEST DATE (test code = 3576) ARGENIS (test code = ARGENIS) accurate development and interpretation of all internal controls [facility]
[2022-07-28 17:29] LABS: Hematocrit 26.7 % (36.0-45.0); Lymphocytes % 21.7 % (15.3-44.8); MCV 68.1 fL (80-100); MPV 7.3 fL (7.6-11.3); RBC Red Blood Cell Count 3.92 M/uL (3.86-4.86)
[2022-07-28 17:32] LABS: Blood Morphology Comment NOTED (NOT SEEN); Platelet Estimate INCR; Platelets, Giant PRESENT; White Blood Cell Scan OK (OK)
[2022-07-28 17:46] LABS: Albumin 2.5 g/dL (3.4-5.0); Bilirubin Total 0.3 mg/dL (0.2-1.0); Potassium 3.6 mEq/L (3.5-5.1); Protein, Total 7.1 g/dL (6.4-8.2)
[2022-07-28 18:12] LABS: Specific Gravity 1.022 (1.005-1.030); Urine Bacteria None Seen /HPF (<20); Urine Bilirubin NEGATIVE (Negative); Urine Blood 1+ (Negative); Urine Clarity Clear (Clear); Urine Color Yellow (Yellow); Urine Glucose NEGATIVE (Negative); Urine Mucus 1+ /HPF (None Seen); Urine Protein TRACE (Negative); Urine RBC <5 /HPF (None Seen); Urine Urobilinogen 1+ (Normal); Urine WBC Clump Rare /HPF (None Seen); Urine pH 6.5 (5.0-7.0)
--- NOTE | 2022-07-28 18:34 | RAD REPORT ---
EXAM DESCRIPTION: CT - Head Brain Wo Cont - 07/28/2022 6:04 pm CLINICAL HISTORY: HEADACHE COMPARISON: No comparisons TECHNIQUE: Noncontrast head CT images ad were obtained without IV contrast. Multiplanar reformats we re generated and reviewed. All CT scans are performed using dose optimization technique as appropriate and may include automated exposure control or mA/KV adjustment according to patient size. FINDINGS: No intracranial hemorrhage, mass, or edema. Midline structures are unremarkable. Normal ventricular caliber for age. Ruiz-white matter differentiation is preserved, without evidence of acute infarct. No abnormal extra- axial fluid collections. Mastoid air cells and visualized portions of the paranasal sinuses are clear. No acute bony findings. IMPRESSION: No evidence of an acute intracranial process.
[2022-07-28] MEDS ORDERED: NA CHLORIDE 0.9% 1,000 ML ONE (18:41)
[2022-07-28] MEDS ORDERED: ACETAMINOPHEN 325 MG TABLET ONE (18:41)
--- NOTE | 2022-07-28 18:52 | RAD REPORT ---
EXAM DESCRIPTION: US - Extrem Venous W Compress Micha - 07/28/2022 6:31 pm CLINICAL HISTORY: Swelling COMPARISON: None. TECHNIQUE: Real-time sonographic evaluation of the bilateral lower extremity deep venous systems was performed. FINDINGS: Normal compressibility, flow augmentation, phasic flow and spontaneous flow is identified in both the left and right lower extremity deep venous systems. No intraluminal filling defects seen. IMPRESSION: No evidence of DVT in either lower extremity.
--- NOTE | 2022-07-28 19:29 | ER ---
Nurse's Notes [facility] Name: Sil Gaytan Age: 22 yrs Sex: Female : 2000 Arrival Date: 07/28/2022 Time: 16:43 Bed 5 Private MD: Diagnosis: Headache;Elevated blood-pressure reading, without diagnosis of hypertension Presentation: 07/28 16:54 Chief complaint: Patient states: 7 days post , her BP has been running high , was iw 135/94 and then 144/102, she took some melatonin to try to get it down, is on antibiotics for UTI and some other issues, she was transferred from here a day after giving , + headache and dizziness. Coronavirus screen: At this time, the client does not indicate any symptoms associated with coronavirus-19. Ebola Screen: Patient negative for fever greater than or equal to 101.5 degrees Fahrenheit, and additional compatible Ebola Virus Disease symptoms Patient denies exposure to infectious person. Patient denies travel to an Ebola-affected area in the 21 days before illness onset. No symptoms or risks identified at this time. Initial Sepsis Screen: Does the patient meet any 2 criteria? No. Patient's initial sepsis screen is negative. Does the patient have a suspected source of infection? No. Patient's initial sepsis screen is negative. Risk Assessment: Do you want to hurt yourself or someone else? Patient reports no desire to harm self or others. Onset of symptoms was July 27, 2022. 16:54 Method Of Arrival: Ambulatory iw 16:54 Acuity: DELMAR 3 iw Triage Assessment: 17:45 General: Appears in no apparent distress. Behavior is calm, cooperative, appropriate bp for age. Pain: Complains of pain in head. EENT: No deficits noted. Neuro: Reports dizziness, headache. Cardiovascular: No deficits noted. Respiratory: No deficits noted. GI: No signs and/or symptoms were reported involving the gastrointestinal system. : No signs and/or symptoms were reported regarding the genitourinary system. Derm: No deficits noted. Musculoskeletal: No deficits noted. Historical: - Allergies: 16:57 Codeine; iw 16:57 PENICILLINS; iw 16:57 Prednisone; iw - PMHx: 16:57 Asthma; iw - PSHx: 16:57 ; iw - Immunization history:: Adult Immunizations up to date. - Social history:: Smoking status: Patient denies any tobacco usage or history of. Screenin:55 [facility] ED Fall Risk Assessment (Adult) History of falling in the last 3 months, bp including since admission No falls in past 3 months (0 pts). Abuse screen: Denies threats or abuse. Denies injuries from another. Nutritional screening: No deficits noted. Tuberculosis screening: No symptoms or risk factors identified. Assessment: 17:55 General: SEE TRIAGE NOTE. bp 19:17 Reassessment: Patient appears in no apparent distress at this time. Patient and/or jb4 family updated on plan of care and expected duration. Pain level reassessed. Patient is alert, oriented x 3, equal unlabored respirations, skin warm/dry/pink. 20:00 Reassessment: Pt reports shortness of breath. Lungs are CTA DONITA. Respirations remain jb4 tachypneic Provider notified, see MAR for orders. 21:11 Reassessment: Pt reports feeing better and being able to breath better. Respirations jb4 remain tachypneic. Rate has decreased, respirations are even and unlabored. Vital Signs: 16:54 BP 144 / 99; Pulse 92; Resp 16; Temp 99; Pulse Ox 98% on R/A; Weight 88.45 kg; Height 5 iw ft. 6 in. ; Pain 10/10; 18:34 BP 138 / 92; Pulse 74; Resp 16; Pulse Ox 100% ; bp 19:00 BP 157 / 102; Pulse 80; Resp 25; Pulse Ox 95% on R/A; jb4 19:30 BP 153 / 110; Pulse 84; Resp 28; Pulse Ox 96% on R/A; jb4 21:07 BP 145 / 92; Pulse 97; Resp 18; Temp 98.1(O); Pulse Ox 96% on R/A; rv 16:54 Body Mass Index 31.47 (88.45 kg, 167.64 cm) iw 16:54 Pain Scale: Adult iw Radha Coma Score: 21:07 Eye Response: spontaneous(4). Motor Response: obeys commands(6). Verbal Response: rv oriented(5). Total: 15. ED Course: 16:45 Patient arrived in ED. am2 16:46 David Montana PA is PHCP. cp 16:46 Elvis Garza DO is Attending Physician. cp 16:57 Triage completed. iw 16:58 Arm band placed on. iw 17:15 Missed attempt(s): 22 gauge in right hand. bc6 17:30 CBC with Diff Sent. bc6 17:30 CMP Sent. bc6 17:30 Urinalysis w/ reflexes Sent. bc6 17:30 LDH Sent. bc6 17:30 Inserted saline lock: 20 gauge in left antecubital area, using aseptic technique. bc6 17:50 Aldair James, RN is Primary Nurse. bp 17:55 Patient has correct armband on for positive identification. Bed in low position. Call bp light in reach. Side rails up X2. 18:06 CT Head Brain wo Cont In Process Unspecified. EDMS 18:32 US Extremity Venous W Compression Donita In Process Unspecified. EDMS 19:31 Initiated transfer with Lee Lockhart at [facility]. rv1 19:57 Pt accepted to [facility] L\T\D Triage by Dr. Blanco. rv1 21:04 XRAY Chest (1 view) In Process Unspecified. EDMS 21:30 No provider procedures requiring assistance completed. Patient transferred, IV remains jb4 in place. Administered Medications: 18:46 Drug: Acetaminophen PO 650 mg Route: PO; bp 18:46 Drug: NS 0.9% IV 500 ml Route: IV; Rate: bolus; Site: left antecubital; bp 19:44 Drug: metoCLOPramide IVP 10 mg Route: IVP; Site: left antecubital; jb4 19:44 Drug: diphenhydrAMINE IVP 12.5 mg Route: IVP; Site: left antecubital; jb4 20:09 Drug: Ipratropium Inhalation Aerosol 0.5 mg Route: Inhalation; jb4 20:10 Drug: Albuterol Inhalation 2.5 mg Route: Inhalation; jb4 Medication: 17:55 VIS not applicable for this client. bp Outcome: 19:29 ER care complete, transfer ordered by . cp 21:30 Transferred by ground EMS to [facility], Transfer form completed. jb4 X-rays sent w/ patient. 21:30 Condition: stable 21:30 Discharge instructions given to patient, family, Instructed on the need for transfer, Demonstrated understanding of instructions. 21:32 Patient left the ED. jb4 Signatures: Dispatcher [employer] Pamela Ramirez RN RN iw David Montana PA PA cp Bryson, James RN RN jb4 Mary Ann Burk am2 Aldair James RN RN bp Juan Moreno RN RN rv Charu Briceño rv1 Akilah Lerner bc6 Corrections: (The following items were deleted from the chart) 18:46 18:34 BP 138 / 92; Pulse 74bpm; iw bp 19:44 19:17 BP 157 / 102; Pulse 80bpm; Resp 16bpm; Pulse Ox 95% RA; jb4 jb4
--- NOTE | 2022-07-28 19:30 | EDPHYS ---
Physician Documentation [facility] Name: Sil Gaytan Age: 22 yrs Sex: Female : 2000 Arrival Date: 07/28/2022 Time: 16:43 Bed 5 Private MD: ED Physician Elvis Garza HPI: 07/28 17:10 This 22 yrs old Female presents to ER via Ambulatory with complaints of High Blood cp Pressure. 17:10 The patient has elevated blood pressure and discovered this at home. cp 17:10 Onset: The symptoms/episode began/occurred gradually. Associated signs and symptoms: cp Pertinent positives: headache, visual changes. Severity of symptoms: in the emergency department the blood pressure is unchanged. Patient is , 7 days post delivery by of healthy infant girl who presents to ED with c/o elevated blood pressure, headache. Historical: - Allergies: 16:57 Codeine; iw 16:57 PENICILLINS; iw 16:57 Prednisone; iw - PMHx: 16:57 Asthma; iw - PSHx: 16:57 ; iw - Immunization history:: Adult Immunizations up to date. - Social history:: Smoking status: Patient denies any tobacco usage or history of. ROS: 17:15 Constitutional: Negative for body aches, chills, fever, poor PO intake. cp 17:15 Eyes: Negative for injury, pain, redness, and discharge. cp 17:15 Cardiovascular: Negative for chest pain, edema, palpitations. 17:15 MS/extremity: Positive for swelling, of the left lower leg and right lower leg, Negative for pain. 17:15 Skin: Negative for cellulitis, rash. 17:15 Neuro: Positive for headache, Negative for altered mental status, weakness. 17:15 All other systems are negative. Exam: 17:20 Constitutional: The patient appears in no acute distress, alert, awake, non-toxic, well cp developed, well nourished, uncomfortable. 17:20 Head/Face: Normocephalic, atraumatic. cp 17:20 Eyes: Periorbital structures: appear normal, Conjunctiva: normal, no exudate, no injection, Sclera: no appreciated abnormality, Lids and lashes: appear normal, bilaterally. 17:20 ENT: External ear(s): are unremarkable, Nose: is normal, Mouth: Lips: moist, Oral mucosa: pink and intact, moist, Posterior pharynx: is normal, airway is patent, no erythema, no exudate. 17:20 Neck: ROM/movement: is normal, is supple, without pain, no range of motions limitations, no meningismus, no nuchal rigidity. 17:20 Chest/axilla: Inspection: normal. 17:20 Cardiovascular: Rate: normal, Rhythm: regular, Edema: pedal edema, that is mild, ankle edema, that is mild, JVD: is not appreciated. 17:20 Respiratory: the patient does not display signs of respiratory distress, Respirations: normal, no use of accessory muscles, no retractions, labored breathing, is not present, Breath sounds: are clear throughout, no decreased breath sounds, no stridor, no wheezing. 17:20 Abdomen/GI: Inspection: abdomen appears normal, Palpation: abdomen is soft and non-tender, in all quadrants. 17:20 Back: pain, is absent, ROM is normal. 17:20 Neuro: Orientation: to person, place \T\ time. Mentation: is normal, Cerebellar function: is grossly normal, Motor: moves all fours, strength is normal, Sensation: is normal, Gait: is steady, at a normal pace, without difficulty. 19:18 ECG was reviewed by the Attending Physician. cp Vital Signs: 16:54 BP 144 / 99; Pulse 92; Resp 16; Temp 99; Pulse Ox 98% on R/A; Weight 88.45 kg; Height 5 iw ft. 6 in. ; Pain 10/10; 18:34 BP 138 / 92; Pulse 74; Resp 16; Pulse Ox 100% ; bp 19:00 BP 157 / 102; Pulse 80; Resp 25; Pulse Ox 95% on R/A; jb4 19:30 BP 153 / 110; Pulse 84; Resp 28; Pulse Ox 96% on R/A; jb4 21:07 BP 145 / 92; Pulse 97; Resp 18; Temp 98.1(O); Pulse Ox 96% on R/A; rv 16:54 Body Mass Index 31.47 (88.45 kg, 167.64 cm) iw 16:54 Pain Scale: Adult iw Romance Coma Score: 21:07 Eye Response: spontaneous(4). Motor Response: obeys commands(6). Verbal Response: rv oriented(5). Total: 15. MDM: 17:15 Patient medically screened. cp 18:00 Differential diagnosis: hypertensive crisis, Malignant HTN, CVA, intracerebral cp hemorrhage, eclampsia, preeclampsia. 19:05 Data reviewed: vital signs, nurses notes, lab test result(s), EKG, radiologic studies, cp CT scan. 19:05 Counseling: I had a detailed discussion with the patient and/or guardian regarding: the cp historical points, exam findings, and any diagnostic results supporting the discharge/admit diagnosis, lab results, the need to transfer to another facility, [facility] does not immediately have the required specialist. 19:30 Management of patient was discussed with the following: DR Gretel Blanco, OB, will cp accept patient as transfer to [facility]. 07/28 17:07 Order name: CBC with Diff; Complete Time: 17:50 cp 07/28 17:50 Interpretation: Normal except: HGB 8.7; HCT 26.7; MCV 68.1; MCH 22.2; PLT 475; RDW cp 16.6; MPV 7.3. 07/28 17:07 Order name: CMP; Complete Time: 17:50 cp 07/28 17:50 Interpretation: Normal except: CRE 0.35; ALT 12; AST 7; ALB 2.5; GLOB 4.6; A/G 0.5. cp 07/28 17:07 Order name: Urinalysis w/ reflexes; Complete Time: 18:13 cp 07/28 18:13 Interpretation: Normal except: UBLD 1+; UPROT TRACE; UUROB 1+. 07/28 17:07 Order name: LDH; Complete Time: 17:50 cp 07/28 17:07 Order name: Urine For Protein, Random; Complete Time: 18:05 cp 07/28 18:06 Interpretation: Abnormal: PROTU 26.7. cp 07/28 17:32 Order name: CBC Smear Scan; Complete Time: 17:50 EDMS 07/28 19:31 Order name: Magnesium; Complete Time: 19:58 cp 07/28 19:58 Interpretation: Reviewed. 07/28 17:07 Order name: CT Head Brain wo Cont; Complete Time: 19:00 cp 07/28 19:00 Interpretation: Report reviewed. 07/28 17:15 Order name: US Extremity Venous W Compression Micha; Complete Time: 19:00 cp 07/28 19:00 Interpretation: Report reviewed. cp 07/28 20:06 Order name: XRAY Chest (1 view) cp 07/28 18:14 Order name: EKG; Complete Time: 18:15 cp 07/28 17:07 Order name: IV Saline Lock; Complete Time: 17:30 cp 07/28 17:07 Order name: Labs collected and sent; Complete Time: 17:30 cp 07/28 18:05 Order name: Vital Signs: recheck vitals; Complete Time: 18:46 cp 07/28 18:14 Order name: EKG - Nurse/Tech; Complete Time: 19:14 cp 07/28 20:06 Order name: Oxygen Per Protocol; Complete Time: 20:09 cp EC:18 Rate is 80 beats/min. Rhythm is regular. AK interval is normal. QRS interval is normal. cp QT interval is normal. T waves are Inverted in leads aVL, aVR. Interpreted by me. Reviewed by me. Administered Medications: 18:46 Drug: Acetaminophen PO 650 mg Route: PO; bp 18:46 Drug: NS 0.9% IV 500 ml Route: IV; Rate: bolus; Site: left antecubital; bp 19:44 Drug: metoCLOPramide IVP 10 mg Route: IVP; Site: left antecubital; jb4 19:44 Drug: diphenhydrAMINE IVP 12.5 mg Route: IVP; Site: left antecubital; jb4 20:09 Drug: Ipratropium Inhalation Aerosol 0.5 mg Route: Inhalation; jb4 20:10 Drug: Albuterol Inhalation 2.5 mg Route: Inhalation; jb4 Disposition: 17:44 Co-signature as Attending Physician, Elvis WANG was immediately available on-site ms3 in the Emergency Department for consultation in the care of the patient. Disposition Summary: 07/28/22 19:29 Transfer Ordered Transfer Location: [facility] cp Reason: Higher level of care cp Condition: Stable cp Problem: new cp Symptoms: have improved cp Accepting Physician: DR Gretel Blanco(07/28/22 21:32) jb4 Diagnosis - Headache cp - Elevated blood-pressure reading, without diagnosis of hypertension cp Forms: - Medication Reconciliation Form cp - SBAR form cp Signatures: Dispatcher [employer] Pamela Ramirez RN RN David Dooley PA PA cp Bryson, James, RN RN jb4 Aldair James RN RN Elvis Holman DO DO ms3 Corrections: (The following items were deleted from the chart) 17:50 17:50 Normal except: CRE 0.35. cp cp 19:48 19:29 doctor cp cp 19:51 19:48 doctor cp cp 21:32 19:51 DR Gretel Blanco cp jb4
[2022-07-28] MEDS ORDERED: DIPHENHYDRAMINE 50 MG/ML VIAL ONE (19:45)
[2022-07-28] MEDS ORDERED: METOCLOPRAMIDE 10 MG/2mL INJ ONE (19:45)
[2022-07-28] MEDS ORDERED: IPRATROPIUM BROM 0.5MG/2.5ML ONE (20:14)
[2022-07-28] MEDS ORDERED: ALBUTEROL 2.5 MG/3 ML NEB SOL ONE (20:14)
--- NOTE | 2022-07-28 21:31 | RAD REPORT ---
EXAM DESCRIPTION: RADChest Single View07/28/2022 9:02 pm CLINICAL HISTORY: SOB COMPARISON: Chest Single View dated 07/24/2022; Chest Single View dated 03/30/2020; Chest Pa And Lat (2 Views) dated 04/10/2019 TECHNIQUE: Portable AP view of the chest. FINDINGS: The lungs are clear. Interstitial prominence. No pneumothorax or effusion. The cardiomedia stinal contours are unremarkable. IMPRESSION: Central interstitial prominence, suggestive of central congestion/ edema. No focal airsp leonard opacities.
[2022-07-28 21:59] VITALS: O2SAT 96
[2022-07-28 22:00] VITALS: BP 145/92; TEMP 98.1
--- NOTE | 2022-07-29 13:47 | EKG ---
Test Date: 2022-07-28 Test Time: 19:11:28 Surgery Nurse: RILEY MEASUREMENT RESULTS: Intervals: Rate: 80 GA: 164 QRSD: 88 QT: 378 QTc: 435 Deale: P: 15 GA: 164 QRS: 105 T: 74 INTERPRETIVE STATEMENTS: Normal sinus rhythm Normal ECG Compared to ECG 07/24/2022 05:39:09 Right-axis deviation no longer present Electronically Signed On 07-29-22 13:46:07 CDT by Geoff Marx
== END 2022-07-28 21:32 | disposition short-term general hospital (02) ==
LOC: ER 16:43
DX: R51.9 Headache, unspecified (principal); R03.0 Elevated blood-pressure reading, without diagnosis of hypertension; Z88.0 Allergy status to penicillin; Z88.5 Allergy status to narcotic agent; Z88.8 Allergy status to other drugs, medicaments and biological substances
CPT/HCPCS: 93005; 85025; 81001; 36415; 83735; 83615; 80053; 84156; 70450; 71045; 93970; 96375; 96374; 99285; J2765; J1200; J7613; J7644; J7030

== ENCOUNTER 2022-09-05 19:41 | Emergency (ER) | payer OTHER ==
--- OUTSIDE RECORDS SUMMARY | 2022-09-05 20:00 | XMS REPORT | Continuity of Care Document ---
:2000 Author Organization [facility] t Address [address] [place] [address] Care Team Providers Name Role Phone Tushar Villarreal Primary Care Physician [phone] KASEY BLANCO Attending Clinician Unavailable KASEY BLANCO Attending Clinician Unavailable TUSHAR LAN Attending Clinician Unavailable Tushar Villarreal Attending Clinician [phone] MOSHE AGOSTO Attending Clinician Unavailable [facility], [facility] Attending Clinician Unavailable HETAL NORRIS Attending Clinician Unavailable Hetal Norris MD Attending Clinician Patt Nova RN Attending Clinician Unavailable AUSTIN ARZOLA Attending Clinician Unavailable Austin Arzola MD Attending Clinician Doctor Unassigned, [place] Attending Clinician Unavailable Antonette Solano CNM Attending Clinician ANTONETTE SOLANO Attending Clinician Unavailable SHEREEN TRAVIS Attending Clinician Unavailable Risk, Ers-Pzyvl-Ja/High Attending Clinician Unavailable Shereen Travsi MD Attending Clinician Ultrasound, Ang-Mfm Attending Clinician Unavailable EDWIN CAGE Attending Clinician Unavailable Fauzia Edwin JASON Attending Clinician David Cooper DO Attending Clinician SARA SNYDER Attending Clinician Unavailable SARA SNYDER Attending Clinician Unavailable Provider, Ang-Rmchp Temp Attending Clinician Unavailable Ramo ACEVEDOP, Krystlea R Attending Clinician KRYSTLE RALPHA R Attending Clinician Unavailable JAM SAUNDERS Attending Clinician Unavailable CLINTON CRUMP Attending Clinician Unavailable Madonna ACEVEDOP, Ernesto Rosario Attending Clinician ERNESTO PEACOCK Attending Clinician Unavailable Jamshid ACEVEDOP, Rosio Attending Clinician Dylan Prieto MD Attending Clinician Fontantaz III, ASBESTOS MICROSCOPIST, R Attending Clinician Lab, Ang-Rmchp Attending Clinician [...] Effective Date Expiration Date Daniel del [facility] [id number] 2021 00:00:00 Problems Condition Condition Condition Status Onset Resolution Last Treating Co mments Source Name Details Category Date Date Treatment Clinician Date Routine Routine Disease Active Univers 6-16 [place] [facility] [place] Disease Active Uni vers induced induced 6-02 ity of hypertensi hypertens[place] 00[place], on, 00 Medical antepartum antepartum Br anch Disease Active U nivers state state 6- ity of 00:00: [facility] Branch Obesity Obesity Disease Active Univers (BMI (BMI 5-28 ity of 30-39.9) 30-39.9) 00:00: Medical Branch Postoperat Postoperat Disease Active U nivers chris fever chris fever 5-28 ity of 00:00: [facility] Branch Disease Active Univers premature premature 5-25 ity of rupture of rupture of 00:[place] membranes membranes 00 [facility] (PPROM) (PPROM) [place] with onset with onset of labor of labor within 24 within 24 hours of hours of rupture in rupture in third third trimester, trimester, antepartum antepartum 36 weeks 36 weeks Disease Active Unive rs gestation gestation 5-25 ity of of of 00:00: [place] 00 [facility] Liveborn Liveborn Disease Active Unive rs , of infant, of 5-25 it y of [place]cke[place] 00:[place] , , 00 Me dical born in [facility] in [place] [facility] by by delivery delivery UTI in UTI in Disease Active Overview: Univer s 5-24 Formattin i ty of 00:00: g of this 00 note Medical might be Branch different from the original. Per meds sent and patient notified Supervisio Supervisio Disease Active U nivers n of n of 3-02 ity of high-risk high-risk 00:[place] [facility] Multiparit Multiparit Disease Active U nivers y y 3-02 ity of 00:00: Medical Branch History of History of Disease Active 2021-02 U nivers pre-eclamp pre-eclamp 0-27 it y of [place] in [place] in 00:00: [place] prior prior 00 Medical , , Br [...] Elevated Disease Active Unive rs blood blood 8- ity of pressure pressure 00:00: [place] reading reading 00 Medical without without Branch diagnosis diagnosis of of hypertensi hypertensi on on Encounter Encounter Disease Active 2020-02 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 [place] [...] Codeine Drug Active Cough 2019-02 Univers Allergy 0-29 ity of 00:00: [place] 00 Medical Branch CODEINE DRUG Active COUGH 2019-02 Univers INGREDI - ity of 00:00: [place] 00 Medical Branch [...] Active Rash Univer s ins ty to 407 ity of adverse 00:00: [place] reaction 00 Medical s Branch Social History Social Habit Start Date Stop Date Quantity Comments Source ASSERTION 2021-11-25 University of 00:00:00 [place] [facility] Branch History SDOH University o f Alcohol Std [place] [facility] Drinks Branch History SDOH University o f Alcohol Binge [place] [facility] al Branch History [facility] University o f Alcohol Comment [place] Med ical Branch Alcohol intake 2022-07-22 2022-07-22 Ex-drinker [facility] 00:00:00 00:00:00 (finding) [place] [facility] [place] Exposure to 2022-07-11 2022-07-21 Not sure [facility] SARS-CoV-2 00:00:00 10:35:00 [facility] (event) [place] Tobacco use and 2022-07-21 2022-07-21 Smokeless tobacco Un iversity of exposure 00:00:00 00:00:00 non-user [place] [facility] [place] History SDOH 2018-12-20 2018-12-20 1 University o f Alcohol Frequency 00:00:00 [facility]:00 [facility] [place] Sex Assigned At [birth year] Universit y of 00:00:00 00:00:00 [facility] Smoking Status Start Date Stop Date Source Never smoked tobacco [facility] Medications Ordered Filled Start Stop Current Ordering Indication Dosage Frequency Signature Comments Components Source Medication Medication Date Date Medication? Clinician (SIG) Name Name acetaminoph Yes 650mg 650 mg, Un odilon en 07-29 Oral, ity of (TYLENOL) 13:29: Q6HPRN, [place] tablet 650 04 Starting Medic al mg on Mon Branch 07/29/22 at 0829, Until Discontinu ed, Routine, Pain (scale 1-3), Pain (scale 4-6) labetaloL 2022-0 Yes 200mg 200 mg, Univ ers (NORMODYNE) 6-02 Oral, ity of tablet 200 06:00: Q12H, [place] mg 00 First dose Medical on Mon Branch 07/29/22 at 0100, Until Discontinu ed, Routine labetaloL 2022-0 Yes [id number] 200mg Take 1 U nivers 200 mg 6-02 tablet by ity of tablet 00:00: mouth [place] 00 every 12 Medical (twelve) Branch hours. labetaloL 2022-0 Yes [id number] 200mg Take 1 U nivers 200 mg 6-02 tablet by ity of tablet 00:00: mouth [place] 00 every 12 Medical (twelve) Branch hours. labetaloL 2022-0 Yes [id number] 200mg Take 1 U nivers 200 mg 6-02 tablet by ity of tablet 00:00: mouth [place] 00 every 12 Medical (twelve) Branch hours. labetaloL 2022-0 Yes [id number] 200mg Take 1 U nivers 200 mg 6-02 tablet by ity of tablet 00:00: mouth [place] 00 every 12 Medical (twelve) Branch hours. labetaloL 2022-0 Yes [id number] 200mg Take 1 U nivers 200 mg 6-02 tablet by ity of tablet 00:00: mouth [place] 00 every 12 Medical (twelve) Branch hours. labetaloL 2022-0 Yes [id number] 200mg Take 1 U nivers 200 mg 6-02 tablet by ity of tablet 00:00: mouth [place] 00 every 12 Medical (twelve) Branch hours. labetaloL 2022-0 Yes [id number] 200mg Take 1 U nivers 200 mg 6-02 tablet by ity of tablet 00:00: mouth [place] 00 every 12 Medical (twelve) Branch hours. KCL 2022-0 202- No 40meq 40 mEq, Univers (KLOR-CON 07-25 Oral, ity of M20) tablet 06:15: 13:41 DAILY, 2 [place] 40 mEq 00 :00 doses, Medical First dose Branch on Mon07/25/22 at 0115, Last dose on Mon07/25/22 at 0900, Routine ferrous 3-0 Yes 325mg 325 mg, Univer s sulfate 07-25 Oral, BID, ity of tablet 325 01:00: First dose [place] mg 00 on [facility] 07/24/22 at Branch 2000, Until Discontinu ed, Routine ceFAZolin 0 2022- Yes 1000mg 1,000 mg, Univers (ANCEF) 07-24 05-30 IV ity of 1,000 mg in 19:00: 18:59 Piggyback, [place] NaCl 0.9% 00 :00 Q8H ABX, 6 Medi lottie (NS) 100 mL doses, Branch MINI-BAG First dose (after last modificati on) on Mon07/24/22 at 1400, Last dose on Mon07/26/22 at 0600, Administer over 30 Minutes, 100 mL
Reas on for Anti-Infec tive: Documented Infection< br>Documen brendan Infection Site: Urine
D uration of Therapy: Other (see Comments) rho(D) Yes 300ug 300 mcg, Univer s immune 07-24 Intramuscu ity of globulin 15:24: lar, ONCE, [place] (RHOGAM) 51 For 1 Medical syringe 300 dose, Branch mcg Conditiona l, Routine HYDROcodone 0 Yes 2{tbl} 2 tablet, Univers -acetaminop 07-24 Oral, ity of hen (NORCO 15:23: Q6HPRN, [place] 5) 5-325 mg 27 Starting Medi lottie tablet 2 on [place] Branch tablet 07/24/22 at 1023, Until Discontinu ed, Routine, Pain (scale 7-10), Alternate with Ibuprofen HYDROcodone 2022-0 Yes 1{tbl} 1 tablet, Univers -acetaminop 07-24 Oral, ity of hen (NORCO 15:23: Q6HPRN, [place] 5) 5-325 mg 22 Starting Medi lottie tablet 1 on [facility] Branch tablet 07/24/22 at 1023, Until Discontinu ed, Routine, Pain (scale 4-6), Alternate with Ibuprofen diphenhydrA 0 Yes 25mg 25 mg, Univ ers MINE 07-24 Slow IV ity of (BENADRYL) 15:21: Push, [place] injection 28 Q6HPRN, Medical 25 mg Starting Branch on 07/24/22 at 1021, Until Discontinu ed, Routine, Itching diphenhydrA 2023-0 Yes 25mg 25 mg, Univ ers MINE 07-24 Oral, ity of (BENADRYL) 15:21: Q6HPRN, [place] tablet 25 28 Starting Medica l mg on [facility] 07/24/22 at 1021, Until Discontinu ed, Routine, Sleep, Itching ondansetron 0 Yes 4mg 4 mg, Slow Univers (ZOFRAN 07-24 IV Push, ity of (PF)) 15:21: Q8HPRN, [place] injection 4 28 Starting Medi lottie mg on [facility] 07/24/22 at 1021, Until Discontinu ed, Routine, Nausea and Vomiting (N/V) bisacodyL Yes 10mg 10 mg, Univer s (DULCOLAX) 07-24 Rectal, ity of suppository 15:21: QDAILYPRN, [place] 10 mg 28 Starting Medical on [facility] 07/24/22 at 1021, Until Discontinu ed, Routine, Constipati on simethicone Yes 160mg 160 mg, Un odilon (GAS RELIEF 07-24 Oral, ity of (SIMETHICON 15:21: PC+HSPRN, [place] E)) 28 Starting Medical chewable on [facility] tablet 160 07/24/22 at mg 1021, Until Discontinu ed, Routine, Gas docusate Yes 200mg 200 mg, Unive rs (COLACE) 07-24 Oral, ity of capsule 200 15:21: QDAILYPRN, [place] mg 28 Starting Medical on [facility] 07/24/22 at 1021, Until Discontinu ed, Routine, Constipati on magnesium 0 Yes 30mL 30 mL, Univer s hydroxide 07-24 Oral, ity of (MILK OF 15:21: QDAILYPRN, [place] MAGNESIA) 28 Starting Medica l 400 mg/5 mL on [facility] suspension 07/24/22 at 30 mL 1021, Until Discontinu ed, Routine, Constipati on lactated 2022-0 2022- No 1000mL at 125 Univ ers ringers IV 07-24 05-28 mL/hr, ity of infusion 15:21: 16:25 1,000 mL, [place] 1,000 mL 28 :00 IV Medical Infusion, Branch PRN, 1 dose, Starting on 07/24/23 at 1021, Until Discontinu ed, Routine 2022- No Take by Unive rs 25/iron 07-23 mouth. ity of fum/folic/d 12:50: 00:00 [place] betancur 40 :00 Medical (-1 Branch ORAL) HYDROcodone [...]
D uration of Therapy: 7 days Yes [id number] 1{tbl} Take 1 Univers vitamin 07-23 tablet by ity of w/FA tablet 00:00: mouth in [place] 00 the Medical morning. Branch docusate Yes [id number] 200mg Take 2 U nivers 100 mg 5-27 capsules ity of capsule 00:00: by mouth [place] 00 once daily Medical as needed Branch for Constipati on. ferrous Yes [id number] 325mg Take 1 Un odilon sulfate 325 5-27 tablet by ity of mg (65 mg 00:00: [place] iron) 00 the Medical tablet morning Branch and 1 tablet in the evening. ibuprofen 0 Yes [id number] 600mg Take 1 Univers 600 mg 5-27 tablet by ity of tablet 00:00: mouth [place] 00 every 6 Medical (six) Branch hours as needed (Pain). Take with food or milk. Yes [id number] 1{tbl} Take 1 Univers vitamin 5-27 tablet by ity of w/FA tablet 00:00: mouth in [place] 00 the Medical morning. Branch docusate Yes [id number] 200mg Take 2 U nivers 100 mg 5-27 capsules ity of capsule 00:00: by mouth [place] 00 once daily Medical as needed Branch for Constipati on. ferrous Yes [id number] 325mg Take 1 Un odilon sulfate 325 5-27 tablet by ity of mg (65 mg 00:00: [place] iron) 00 the Medical tablet morning Branch and 1 tablet in the evening. Yes [id number] 1{tbl} Take 1 Univers vitamin 5-27 tablet by ity of w/FA tablet 00:00: mouth in [place] 00 the Medical morning. Branch docusate Yes [id number] 200mg Take 2 U nivers 100 mg 5-27 capsules ity of capsule 00:00: by mouth [place] 00 once daily Medical as needed Branch for Constipati on. ferrous Yes [id number] 325mg Take 1 Un odilon sulfate 325 5-27 tablet by ity of mg (65 mg 00:00: mouth [place] iron) 00 the Medical tablet morning Branch and 1 tablet in the evening. 0 Yes [id number] 1{tbl} Take 1 Univers vitamin 5-27 tablet by ity of w/FA tablet 00:00: mouth in [place] 00 the Medical morning. Branch docusate Yes [id number] 200mg Take 2 U nivers 100 mg 5-27 capsules ity of capsule 00:00: by mouth [place] 00 once daily Medical as needed Branch for Constipati on. ferrous 0 Yes [id number] 325mg Take 1 Un odilon sulfate 325 5-27 tablet by ity of mg (65 mg 00:00: mouth [place] iron) 00 the Medical tablet morning Branch and 1 tablet in the evening. Yes [id number] 1{tbl} Take 1 Univers vitamin 5-27 tablet by ity of w/FA tablet 00:00: mouth in [place] 00 the Medical morning. Branch docusate Yes [id number] 200mg Take 2 U nivers 100 mg 5-27 capsules ity of capsule 00:00: by mouth [place] 00 once daily Medical as needed Branch for Constipati on. ferrous Yes [id number] 325mg Take 1 Un odilon sulfate 325 5-27 tablet by ity of mg (65 mg 00:00: mouth [place] iron) 00 the Medical tablet morning Branch and 1 tablet in the evening. Yes [id number] 1{tbl} Take 1 Univers vitamin 5-27 tablet by ity of w/FA tablet 00:00: mouth in [place] 00 the Medical morning. Branch docusate Yes [id number] 200mg Take 2 U nivers 100 mg 5-27 capsules ity of capsule 00:00: by mouth [place] 00 once daily Medical as needed Branch for Constipati on. ferrous 0 Yes [id number] 325mg Take 1 Un odilon sulfate 325 5-27 tablet by ity of mg (65 mg 00:00: mouth [place] iron) 00 the Medical tablet morning Branch and 1 tablet in the evening. Yes [id number] 1{tbl} Take 1 Univers vitamin 5-27 tablet by ity of w/FA tablet 00:00: mouth in [place] 00 the Medical morning. Branch docusate Yes [id number] 200mg Take 2 U nivers 100 mg 5-27 capsules ity of capsule 00:00: by mouth [place] 00 once daily Medical as needed Branch for Constipati on. ferrous 0 Yes [id number] 325mg Take 1 Un odilon sulfate 325 5-27 tablet by ity of mg (65 mg 00:00: mouth [place] iron) 00 the Medical tablet morning Branch and 1 tablet in the evening. 2022-0 Yes [id number] 1{tbl} Take 1 Univers vitamin 5-27 tablet by ity of w/FA tablet 00:00: mouth in [place] 00 the Medical morning. Branch docusate 0 Yes [id number] 200mg Take 2 U nivers 100 mg 5-27 capsules ity of capsule 00:00: by mouth [place] 00 once daily Medical as needed Branch for Constipati on. ferrous 0 Yes [id number] 325mg Take 1 Un odilon sulfate 325 5-27 tablet by ity of mg (65 mg 00:00: mouth in [place] iron) 00 the Medical tablet morning Branch and 1 tablet in the evening. 2022-0 Yes [id number] 1{tbl} Take 1 Univers vitamin 5-27 tablet by ity of w/FA tablet 00:00: mouth in [place] 00 the Medical morning. Branch docusate 0 Yes [id number] 200mg Take 2 U nivers 100 mg 5-27 capsules ity of capsule 00:00: by mouth [place] 00 once daily Medical as needed Branch for Constipati on. ferrous 0 Yes [id number] 325mg Take 1 Un odilon sulfate 325 5-27 tablet by ity of mg (65 mg 00:00: mouth [place] iron) 00 the Medical tablet morning Branch and 1 tablet in the evening. 2022-0 Yes [id number] 1{tbl} Take 1 Univers vitamin 5-27 tablet by ity of w/FA tablet 00:00: mouth in [place] 00 the Medical morning. Branch docusate 0 Yes [id number] 200mg Take 2 U nivers 100 mg 5-27 capsules ity of capsule 00:00: by mouth [place] 00 once daily Medical as needed Branch for Constipati on. ferrous 2022-0 Yes [id number] 325mg Take 1 Un odilon sulfate 325 5-27 tablet by ity of mg (65 mg 00:00: mouth [place] iron) 00 the Medical tablet morning Branch and 1 tablet in the evening. 2022-0 Yes [id number] 1{tbl} Take 1 Univers vitamin 5-27 tablet by ity of w/FA tablet 00:00: mouth in [place] 00 the Medical morning. Branch docusate Yes [id number] 200mg Take 2 U nivers 100 mg 5-27 capsules ity of capsule 00:00: by mouth [place] 00 once daily Medical as needed Branch for Constipati on. ferrous Yes [id number] 325mg Take 1 Un odilon sulfate 325 5-27 tablet by ity of mg (65 mg 00:00: mouth [place] iron) 00 the Medical tablet morning Branch and 1 tablet in the evening. Yes [id number] 1{tbl} Take 1 Univers vitamin 5-27 tablet by ity of w/FA tablet 00:00: mouth in [place] 00 the Medical morning. Branch docusate Yes [id number] 200mg Take 2 U nivers 100 mg 5-27 capsules ity of capsule 00:00: by mouth [place] 00 once daily Medical as needed Branch for Constipati on. ferrous Yes [id number] 325mg Take 1 Un odilon sulfate 325 [...] Indication s: acute pain ibuprofen 2022- No [id number] 600mg Take 1 Univers 600 mg 5-27 [...] 24 hours. Indication s: acute pain ibuprofen 2023-0 Yes 600mg 600 mg, Univ ers (IBU) 5-26 Oral, Q6H, ity of tablet 600 23:00: First dose [place] mg 00 on Mon Medical 07/22/22 at Branch 1800, Until Discontinu ed, Routine ibuprofen 3-0 Yes 600mg 600 mg, Univ ers (IBU) -26 Oral, Q6H, ity of tablet 600 23:00: First dose [place] mg 00 on Mon Medical 07/22/22 at Branch 1800, Until Discontinu ed, Routine acetaminoph 2022-0 Yes 650mg 650 mg, Un odilon en 07-22 Oral, ity of (TYLENOL) 20:00: Q6HPRN, [place] tablet 650 00 Starting Medic al mg on Mon Branch 07/22/22 at 1500, Until Discontinu ed, Routine, Pain acetaminoph 2022-0 Yes 650mg 650 mg, Un odilon en 07-22 Oral, ity of (TYLENOL) 20:00: Q6HPRN, [place] tablet 650 00 Starting Medic al mg on Mon Branch 07/22/22 at 1500, Until Discontinu ed, Routine, Pain acetaminoph 3-0 202- No 1000mg 1,000 mg, Univers en ADULT 07-22 IV ity of (OFIRMEV) 02:00: 15:02 Infusion, [place] injection 00 :00 at 400 Medical 1,000 mg mL/hr Branch Administer over 15 Minutes, Q6H, 3 doses, First dose (after last modificati on) on Mon07/21/22 at 2100, Last dose on Mon07/22/22 at 0600, Routine
Indicatio n: Perioperat chris Patient ketorolac 2022-0 202- No 30mg 30 mg, Unive rs (TORADOL) 07-21 Slow IV ity of injection 23:00: 16:43 Push, Q6H, [place] 30 mg 00 :00 4 doses, Medical First dose Branch on Mon07/21/22 at 1800, Last dose on Mon07/22/22 at 1200, Routine lactated 2023-0 2023- No 1000mL at 125 Univ ers ringers IV 5-25 05-25 mL/hr, ity of infusion 21:30: 20:12 1,000 mL, [place] 1,000 mL 00 :06 IV Medical Infusion, Branch ONCE, 1 dose, On [facility] 07/21/22 at 1630, Routine diphenhydrA 2022-0 Yes 25mg 25 mg, Univ ers MINE 5-25 Slow IV ity of (BENADRYL) 20:34: Push, [place] injection 05 Q6HPRN, Medical 25 mg Starting Branch on [facility] 07/21/22 at 1534, Until Discontinu ed, Routine, Itching diphenhydrA 2022-0 Yes 25mg 25 mg, Univ ers MINE 5-25 Oral, ity of (BENADRYL) 20:34: Q6HPRN, [place] tablet 25 05 Starting Medica l mg on [facility] 07/21/22 at 1534, Until Discontinu ed, Routine, Sleep, Itching ondansetron 2022-0 Yes 4mg 4 mg, Slow Univers (ZOFRAN 5-25 IV Push, ity of (PF)) 20:34: Q8HPRN, [place] injection 4 05 Starting Medi lottie mg on [facility] 07/21/22 at 1534, Until Discontinu ed, Routine, Nausea and Vomiting (N/V) bisacodyL 2022-0 Yes 10mg 10 mg, Univer s (DULCOLAX) 5-25 Rectal, ity of suppository 20:34: QDAILYPRN, [place] 10 mg 05 Starting Medical on [facility] Branch 07/21/22 at 1534, Until Discontinu ed, Routine, Constipati on simethicone 2022-0 Yes 160mg 160 mg, Un odilon (GAS RELIEF 5-25 Oral, ity of (SIMETHICON 20:34: PC+HSPRN, [place] E)) 05 Starting Medical chewable on [facility] Branch tablet 160 07/21/22 at mg 1534, [...] 25 05 Starting Medica l mg on [facility] Branch 07/21/22 at 1534, Until Discontinu ed, Routine, Sleep, Itching ondansetron 2022-0 Yes 4mg 4 mg, Slow Univers (ZOFRAN 5-25 IV Push, ity of (PF)) 20:34: Q8HPRN, [place] injection 4 05 Starting Medi lottie mg on [facility] Branch 07/21/22 at 1534, Until Discontinu ed, Routine, Nausea and Vomiting (N/V) bisacodyL 2022-0 Yes 10mg 10 mg, Univer s (DULCOLAX) 5-25 Rectal, ity of suppository 20:34: QDAILYPRN, [place] 10 mg 05 Starting Medical on [facility] Branch 07/21/22 at 1534, Until Discontinu ed, Routine, Constipati on simethicone 2022-0 Yes 160mg 160 mg, Un odilon (GAS RELIEF 5-25 Oral, ity of (SIMETHICON 20:34: PC+HSPRN, [place] E)) 05 Starting Medical chewable on [facility] Branch tablet 160 07/21/22 at mg 1534, Until Discontinu ed, Routine, Gas docusate 2022-0 Yes 200mg 200 mg, Unive rs (COLACE) 525 Oral, ity of capsule 200 20:34: QDAILYPRN, [place] mg 05 Starting Medical on [facility] Branch 07/21/22 at 1534, Until Discontinu ed, Routine, Constipati on magnesium Yes 30mL 30 mL, Univer s hydroxide 07-21 Oral, ity of (MILK OF 20:34: QDAILYPRN, [place] MAGNESIA) 05 Starting Medica l 400 mg/5 mL on [facility] Branch suspension 07/21/22 at 30 mL 1534, Until Discontinu ed, Routine, Constipati on lactated No 1000mL at 125 Univ ers ringers IV 07-21 05-26 mL/hr, ity of infusion 20:34: 00:14 1,000 mL, [place] 1,000 mL 05 :00 IV Medical Infusion, Branch PRN, 1 dose, Starting on [facility] 07/21/22 at 1534, Until Discontinu ed, Routine ceFAZolin No 2000mg 2,000 mg, Univers (ANCEF) 07-2125 IV ity of 2,000 mg in 19:30: 19:07 [place], [place] NaCl 0.9% 00 :00 ONCE, 1 [...] 1541, Routine, Tachysysto le with NRFHT sodium No 30mL 30 mL, Univers citrate-cit 07-21-25 Oral, ity of [place] acid 16:32: 18:32 [...] 19 Medical (-1 Branch ORAL) Nitrofurant Yes [id number] 100mg Take 1 Univers oin&Nit. 5-23 capsule by ity o f Macrocryst 00:00: mouth in [place] 100 mg 00 the Medical capsule morning Branch and 1 capsule in the evening. Nitrofurant 0 Yes [id number] 100mg Take 1 Univers oin&Nit. 5-23 capsule by ity o f Macrocryst 00:00: mouth in [place] 100 mg 00 the Medical capsule morning Branch and 1 capsule in the evening. Nitrofurant 0 Yes [id number] 100mg Take 1 Univers oin&Nit. 5-23 capsule by ity o f Macrocryst 00:00: mouth in [place] 100 mg 00 the Medical capsule morning Branch and 1 capsule in the evening. Nitrofurant 2022- No [id number] 100mg Take 1 Univers oin&Nit. 5-23 05-28 capsule by ity of Macrocryst 00:00: 00:00 mouth in [place] 100 mg 00 :00 the Medical capsule morning Branch and 1 capsule in the evening. Yes Take by Univer s 25/iron 5-21 mouth. ity of fum/folic/d 12:50: [facility] 57 Medical (-1 Branch ORAL) 0 Yes Take by Univer s 25/iron 5-21 mouth. ity of fum/folic/d 12:50: [facility] 57 Medical (-1 Branch ORAL) Yes Take by Univer s 25/iron 5-15 mouth. ity of fum/folic/d 03:19: [facility] 16 Medical (-1 Branch ORAL) Yes Take by Univer s 25/iron 5-15 mouth. ity of fum/folic/d 03:19: [facility] 16 Medical (-1 Branch ORAL) Yes Take by Univer s 25/iron 5-15 mouth. ity of fum/folic/d 03:19: [facility] 16 Medical (-1 Branch ORAL) terbutaline 2022- No .25mg 0.25 mg, Univers (BRETHINE) 5-10 05-10 Subcutaneo it y of injection 08:45: 07:59 [place], ONCE, [place] 0.25 mg 00 :00 1 dose, On Medica l [facility] Branch 07/06/22 at 0345, Routine NaCl 0.9% 2022- No 1000mL at 999 Uni vers (NS) bolus 5-10 05-10 mL/hr, ity of infusion 06:30: 06:30 1,000 mL, [place] 1,000 mL 00 :27 IV Medical Infusion, Branch ONCE, 1 dose, On Mon07/06/22 at 0130, STAT Yes Take by Univer s 25/iron 5-10 mouth. ity of fum/folic/d 05:26: [facility] 51 Medical (-1 Branch ORAL) 0 Yes Take by Univer s 25/iron 5-10 mouth. ity of fum/folic/d 05:26: [facility] 51 Medical (-1 Branch ORAL) Yes Take by Univer s 25/iron 5-10 mouth. ity of fum/folic/d 05:26: [place] [facility] 51 Medical (-1 Branch ORAL) metroNIDAZO 2023-0 2023- No [id number] 500mg Take 1 Univers LE 500 mg 2-16 -24 tablet by ity of tablet 00:00: 05:59 mouth in [place] 00 :00 the Medical morning Branch and 1 tablet in the evening. Do all this for 7 days. metroNIDAZO 2023-0 2023- No [id number] 500mg Take 1 Univers LE 500 mg 2-16 -24 tablet by ity of tablet 00:00: 05:59 mouth in [place] 00 :00 the Medical morning Branch and 1 tablet in the evening. Do all this for 7 days. metroNIDAZO 2023-0 2023- No [id number] 500mg Take 1 [facility] LE 500 mg 2-16 -24 tablet by ity of tablet 00:00: 05:59 mouth in [place] 00 :00 the Medical morning Branch and 1 tablet in the evening. Do all this for 7 days. metroNIDAZO 2023-0 2023- No [id number] 500mg Take 1 [facility] LE 500 mg 2-16 -24 tablet by ity of tablet 00:00: 05:59 mouth in [place] 00 :00 the Medical morning Branch and 1 tablet in the evening. Do all this for 7 days. metroNIDAZO 2023-0 2023- No [id number] 500mg Take 1 [facility] LE 500 mg 2-16 -24 tablet by ity of tablet 00:00: 05:59 mouth in [place] 00 :00 the Medical morning Branch and 1 tablet in the evening. Do all this for 7 days. hydroxyprog 2023-0 2023- No [id number] 275mg [facility] esterone(PF 03-31 ity of ) (KATHLEEN 06:00: 04:59 [place] AUTO-INJECT 00 :00 Medical OR) 275 Branch mg/1.1 mL injection 275 mg hydroxyprog 2023-0 2023- No [id number] 275mg [facility] esterone(PF 03-31 ity of ) (KATHLEEN 06:00: 04:59 [place] AUTO-INJECT 00 :00 Medical OR) 275 Branch mg/1.1 mL injection 275 mg hydroxyprog 2023-0 2023- No [id number] 275mg 275 mg, [facility] esterone(PF 03-31 Subcutaneo i ty of ) (KATHLEEN 06:00: 04:59 us, [place] AUTO-INJECT 00 :00 QWEEKLY, Medi lottie OR) 275 16 doses, Branch mg/1.1 mL First dose injection on Alissa 275 mg 03/31/22 at 0000, Last dose on Alissa 07/14/22 at 0000, Routine hydroxyprog 2023-0 2023- No [id number] 275mg [facility] esterone(PF 207-21 ity of ) (KATHLEEN 06:00: 04:59 [place] AUTO-INJECT 00 :00 Medical OR) 275 Branch mg/1.1 mL injection 275 mg hydroxyprog 2023-0 2023- No [id number] 275mg 275 mg, [facility] esterone(PF 03-31 Subcutaneo i ty of ) (KATHLEEN 06:00: 04:59 us, [place] AUTO-INJECT 00 :00 QWEEKLY, Medi lottie OR) 275 16 doses, Branch mg/1.1 mL First dose injection on Alissa 275 mg 03/31/22 at 0000, Last dose on Alissa 07/14/22 at 0000, Routine hydroxyprog 2023-0 2023- No [id number] 275mg [facility] esterone(PF 207-21 ity of ) (KATHLEEN 06:00: 04:59 [place] AUTO-INJECT 00 :00 Medical OR) 275 Branch mg/1.1 mL injection 275 mg hydroxyprog 2023-0 2023- No [id number] 275mg [facility] esterone(PF 207-21 ity of ) (KATHLEEN 06:00: 04:59 [place] AUTO-INJECT 00 :00 Medical OR) 275 Branch mg/1.1 mL injection 275 mg hydroxyprog 2023-0 2023- No [id number] 275mg [facility] esterone(PF 207-21 ity of ) (KATHLEEN 06:00: 04:59 [place] AUTO-INJECT 00 :00 Medical OR) 275 Branch mg/1.1 mL injection 275 mg hydroxyprog 2023-0 2023- No [id number] 275mg [facility] esterone(PF 225 ity of ) (KATHLEEN 06:00: 04:59 [place] AUTO-INJECT 00 :00 Medical OR) 275 Branch mg/1.1 mL injection 275 mg hydroxyprog 2023-0 2023- No [id number] 275mg [facility] esterone(PF 2-02 05-25 ity of ) (KATHLEEN 06:00: 04:59 [place] AUTO-INJECT 00 :00 Medical OR) 275 Branch mg/1.1 mL injection 275 mg hydroxyprog 2023-0 2023- No [id number] 275mg 275 mg, [facility] esterone(PF 03-31 Subcutaneo i ty of ) (KATHLEEN 06:00: 04:59 us, [place] AUTO-INJECT 00 :00 QWEEKLY, [facility] OR) 275 16 doses, Branch mg/1.1 mL First dose injection on Alissa 275 mg 03/31/22 at 0000, Last dose on [place] 07/14/22 at 0000, Routine hydroxyprog 2023-0 2023- No [id number] 275mg [facility] esterone(PF 03-31 ity of ) (KATHLEEN 06:00: 04:59 [place] AUTO-INJECT 00 :00 Medical OR) 275 Branch mg/1.1 mL injection 275 mg hydroxyprog 2023-0 2023- No [id number] 275mg [facility] esterone(PF 03-31 ity of ) (KATHLEEN 06:00: 04:59 [place] AUTO-INJECT 00 :00 Medical OR) 275 Branch mg/1.1 mL injection 275 mg hydroxyprog 2023-0 2023- No [id number] 275mg [facility] esterone(PF 03-31 ity of ) (KATHLEEN 06:00: 04:59 [place] AUTO-INJECT 00 :00 Medical OR) 275 Branch mg/1.1 mL injection 275 mg hydroxyprog 2023-0 2023- No [id number] 275mg 275 mg, [facility] esterone(PF 03-31 Subcutaneo i ty of ) (KATHLEEN 06:00: 04:59 us, [place] AUTO-INJECT 00 :00 QWEEKLY, [facility] OR) 275 16 doses, Branch mg/1.1 mL First dose injection on Alissa 275 mg 03/31/22 at 0000, Last dose on [place] 07/14/22 at 0000, Routine hydroxyprog 2023-0 2023- No [id number] 275mg [facility] esterone(PF 03-31 ity of ) (KATHLEEN 06:00: 04:59 [place] AUTO-INJECT 00 :00 Medical OR) 275 Branch mg/1.1 mL injection 275 mg hydroxyprog 2023-0 2023- No [id number] 275mg 275 mg, [facility] esterone(PF 03-31 Subcutaneo i ty of ) (KATHLEEN 06:00: 04:59 us, [place] AUTO-INJECT 00 :00 QWEEKLY, [facility] OR) 275 16 doses, Branch mg/1.1 mL First dose injection on Alissa 275 mg 03/31/22 at 0000, Last dose on [place] 07/14/22 at 0000, Routine hydroxyprog 2023-0 2023- No [id number] 275mg [facility] esterone(PF 03-31 ity of ) (KATHLEEN 06:00: 04:59 [place] AUTO-INJECT 00 :00 Medical OR) 275 Branch mg/1.1 mL injection 275 mg hydroxyprog 2023-0 2023- No [id number] 275mg 275 mg, [facility] esterone(PF 03-31 Subcutaneo i ty of ) (KATHLEEN 06:00: 04:59 us, [place] AUTO-INJECT 00 :00 QWEEKLY, [facility] OR) 275 16 doses, Branch mg/1.1 mL First dose injection on Alissa 275 mg 03/31/22 at 0000, Last dose on [place] 07/14/22 at 0000, Routine hydroxyprog 2023-0 2023- No [id number] 275mg [facility] esterone(PF 03-31 ity of ) (KATHLEEN 06:00: 04:59 [place] AUTO-INJECT 00 :00 Medical OR) 275 Branch mg/1.1 mL injection 275 mg hydroxyprog 2023-0 2023- No [id number] 275mg 275 mg, [facility] esterone(PF 03-31 Subcutaneo i ty of ) (KATHLEEN 06:00: 04:59 us, [place] AUTO-INJECT 00 :00 QWEEKLY, [facility] OR) 275 16 doses, Branch mg/1.1 mL First dose injection on [place] 275 mg 03/31/22 at 0000, Last dose on [place] 07/14/22 at 0000, Routine hydroxyprog 2023-0 2023- No [id number] 275mg [facility] esterone(PF 03-31 ity of ) (KATHELEN 06:00: 04:59 [place] AUTO-INJECT 00 :00 Medical OR) 275 Branch mg/1.1 mL injection 275 mg hydroxyprog 2023-0 2023- No [id number] 275mg [facility] esterone(PF 03-31 ity of ) (KATHLEEN 06:00: 04:59 [place] AUTO-INJECT 00 :00 Medical OR) 275 Branch mg/1.1 mL injection 275 mg hydroxyprog 2023-0 2023- No [id number] 275mg 275 mg, [facility] esterone(PF 03-31 Subcutaneo i ty of ) (KATHLEEN 06:00: 04:59 us, [place] AUTO-INJECT 00 :00 QWEEKLY, [facility] OR) 275 16 doses, Branch mg/1.1 mL First dose injection on [place]issa 275 mg 03/31/22 at 0000, Last dose on [place] 07/14/22 at 0000, Routine hydroxyprog 2023-0 2023- No [id number] 275mg [facility] esterone(PF 03-31 ity of ) (KATHLEEN 06:00: 04:59 [place] AUTO-INJECT 00 :00 Medical OR) 275 Branch mg/1.1 mL injection 275 mg hydroxyprog 2023-0 2023- No [id number] 275mg 275 mg, [facility] esterone(PF 03-31 Subcutaneo i ty of ) (KATHLEEN 06:00: 04:59 us, [place] AUTO-INJECT 00 :00 QWEEKLY, [facility] OR) 275 16 doses, Branch mg/1.1 mL First dose injection on Alissa 275 mg 03/31/22 at 0000, Last dose on [place] 07/14/22 at 0000, Routine hydroxyprog 2023-0 2023- No [id number] 275mg [facility] esterone(PF 03-31 ity of ) (KATHLEEN 06:00: 04:59 [place] AUTO-INJECT 00 :00 Medical OR) 275 Branch mg/1.1 mL injection 275 mg hydroxyprog 2023-0 2023- No [id number] 275mg 275 mg, [facility] esterone(PF 03-31 Subcutaneo i ty of ) (KATHLEEN 06:00: 04:59 us, [place] AUTO-INJECT 00 :00 QWEEKLY, [facility] OR) 275 16 doses, Branch mg/1.1 mL First dose injection on Alissa 275 mg 03/31/22 at 0000, Last dose on [place] 07/14/22 at 0000, Routine hydroxyprog 2023-0 2023- No [id number] 275mg [facility] esterone(PF 03-31- ity of ) (KATHLEEN 06:00: 04:59 [place] AUTO-INJECT 00 :00 Medical OR) 275 Branch mg/1.1 mL injection 275 mg hydroxyprog 2023-0 2023- No [id number] 275mg 275 mg, [facility] esterone(PF 03-31 Subcutaneo i ty of ) (KATHLEEN 06:00: 04:59 us, [place] AUTO-INJECT 00 :00 QWEEKLY, [facility] OR) 275 16 doses, Branch mg/1.1 mL First dose injection on [place] 275 mg 03/31/22 at 0000, Last dose on [place] 07/14/22 at 0000, Routine hydroxyprog 2023-0 2023- No [id number] 275mg [facility] esterone(PF 03-31 ity of ) (KATHLEEN 06:00: 04:59 [place] AUTO-INJECT 00 :00 Medical OR) 275 Branch mg/1.1 mL injection 275 mg hydroxyprog 2023-0 2023- No [id number] 275mg 275 mg, [facility] esterone(PF 03-31 Subcutaneo i ty of ) (KATHLEEN 06:00: 04:59 us, [place] AUTO-INJECT 00 :00 QWEEKLY, [facility] OR) 275 16 doses, Branch mg/1.1 mL First dose injection on [place] 275 mg 03/31/22 at 0000, Last dose on [place] 07/14/22 at 0000, Routine hydroxyprog 2023-0 2023- No [id number] 275mg [facility] esterone(PF 03-31 ity of ) (KATHLEEN 06:00: 04:59 [place] AUTO-INJECT 00 :00 Medical OR) 275 Branch mg/1.1 mL injection 275 mg hydroxyprog 2023-0 2023- No [id number] 275mg 275 mg, [facility] esterone(PF 225 Subcutaneo i ty of ) (KATHLEEN 06:00: 04:59 us, [place] AUTO-INJECT 00 :00 QWEEKLY, [facility] OR) 275 16 doses, Branch mg/1.1 mL First dose injection on Alissa 275 mg 03/31/22 at 0000, Last dose on [place] 07/14/22 at 0000, Routine hydroxyprog 2023-0 2023- No [id number] 275mg [facility] esterone(PF 03-31 ity of ) (KATHLEEN 06:00: 04:59 [place] AUTO-INJECT 00 :00 Medical OR) 275 Branch mg/1.1 mL injection 275 mg hydroxyprog 2023-0 2023- No [id number] 275mg [facility] esterone(PF 03-31 ity of ) (KATHLEEN 06:00: 04:59 [place] AUTO-INJECT 00 :00 Medical OR) 275 Branch mg/1.1 mL injection 275 mg hydroxyprog 2023-0 2023- No [id number] 275mg [facility] esterone(PF 03-31 ity of ) (KATHELEN 06:00: 04:59 [place] AUTO-INJECT 00 :00 Medical OR) 275 Branch mg/1.1 mL injection 275 mg hydroxyprog 2023-0 2023- No [id number] 275mg [facility] esterone(PF 03-31 ity of ) (KATHLEEN 06:00: 04:59 [place] AUTO-INJECT 00 :00 Medical OR) 275 Branch mg/1.1 mL injection 275 mg hydroxyprog 2023-0 2023- No [id number] 275mg [facility] esterone(PF 03-31 ity of ) (KATHLEEN 06:00: 04:59 [place] AUTO-INJECT 00 :00 Medical OR) 275 Branch mg/1.1 mL injection 275 mg hydroxyprog 2023-0 2023- No [id number] 275mg [facility] esterone(PF 03-31 ity of ) (KATHLEEN 06:00: 04:59 [place] AUTO-INJECT 00 :00 Medical OR) 275 Branch mg/1.1 mL injection 275 mg hydroxyprog 2023-0 2023- No [id number] 275mg [facility] esterone(PF 03-31 ity of ) (KATHLEEN 06:00: 04:59 [place] AUTO-INJECT 00 :00 Medical OR) 275 Branch mg/1.1 mL injection 275 mg hydroxyprog 2023-0 2023- No [id number] 275mg [facility] esterone(PF 03-31 ity of ) (KATHLEEN 06:00: 04:59 [place] AUTO-INJECT 00 :00 Medical OR) 275 Branch mg/1.1 mL injection 275 mg hydroxyprog 2023-0 2023- No [id number] 275mg [facility] esterone(PF 03-31 ity of ) (KATHLEEN 06:00: 04:59 [place] AUTO-INJECT 00 :00 Medical OR) 275 Branch mg/1.1 mL injection 275 mg hydroxyprog 2023-0 2023- No [id number] 275mg [facility] esterone(PF 03-31 ity of ) (KATHLEEN 06:00: 04:59 [place] AUTO-INJECT 00 :00 Medical OR) 275 Branch mg/1.1 mL injection 275 mg hydroxyprog 2023-0 2023- No [id number] 275mg [facility] esterone(PF 03-31 ity of ) (KATHLEEN 06:00: 04:59 [place] AUTO-INJECT 00 :00 Medical OR) 275 Branch mg/1.1 mL injection 275 mg hydroxyprog 2023-0 2023- No [id number] 275mg [facility] esterone(PF 03-24 ity of ) (KATHLEEN 16:45: 15:59 [place] AUTO-INJECT 00 :00 Medical OR) 275 Branch mg/1.1 mL injection 275 mg hydroxyprog 2023-0 2023- No [id number] 275mg 275 mg, [facility] esterone(PF 03-24 Subcutaneo [...] weekly. Medical injection Branch hydroxyprog 2023-0 Yes [id number] 275mg inject 1.1 [facility] esterone,PF 1-09 mL under ity of , 275 00:00: the skin [place] mg/1.1 mL 00 weekly. Medical injection Branch hydroxyprog 2023-0 Yes 275mg inject 1.1 [facility] esterone,PF 1-09 mL under ity of , 275 00:00: the skin [place] mg/1.1 mL 00 weekly. Medical injection Branch hydroxyprog 2023-0 Yes [id number] 275mg inject 1.1 [facility] esterone,PF 1-09 mL under ity of , 275 00:00: the skin [place] mg/1.1 mL 00 weekly. Medical injection Branch hydroxyprog 2023-0 Yes 275mg inject 1.1 [facility] esterone,PF 1-09 mL under ity of , 275 00:00: the skin [place] mg/1.1 mL 00 weekly. Medical injection Branch hydroxyprog 2023-0 Yes [id number] 275mg inject 1.1 [facility] esterone,PF 1-09 mL under ity of , 275 00:00: the skin [place] mg/1.1 mL 00 weekly. Medical injection Branch hydroxyprog 2023-0 Yes 275mg inject 1.1 [facility] esterone,PF 1-09 mL under ity of , 275 00:00: the skin [place] mg/1.1 mL 00 weekly. Medical injection Branch hydroxyprog 2023-0 Yes [id number] 275mg inject 1.1 [facility] esterone,PF 1-09 mL under ity of , 275 00:00: the skin [place] mg/1.1 mL 00 weekly. Medical injection Branch hydroxyprog 2023-0 Yes 275mg inject 1.1 [facility] esterone,PF 1-09 mL under ity of , 275 00:00: the skin [place] mg/1.1 mL 00 weekly. Medical injection Branch hydroxyprog 2023-0 Yes [id number] 275mg inject 1.1 [facility] esterone,PF 1-09 mL under ity of , 275 00:00: the skin [place] mg/1.1 mL 00 weekly. Medical injection Branch hydroxyprog 2023-0 Yes 275mg inject 1.1 [facility] esterone,PF 1-09 mL under ity of , 275 00:00: the skin [place] mg/1.1 mL 00 weekly. Medical injection Branch hydroxyprog 2023-0 Yes [id number] 275mg inject 1.1 [facility] esterone,PF 1-09 mL under ity of , 275 00:00: the skin [place] mg/1.1 mL 00 weekly. Medical injection Branch hydroxyprog 2023-0 Yes 275mg inject 1.1 [facility] esterone,PF 1-09 mL under ity of , 275 00:00: the skin [place] mg/1.1 mL 00 weekly. Medical injection Branch hydroxyprog 2023-0 Yes [id number] 275mg inject 1.1 [facility] esterone,PF 1-09 mL under ity of , 275 00:00: the skin [place] mg/1.1 mL 00 weekly. Medical injection Branch hydroxyprog 2023-0 Yes 275mg inject 1.1 [facility] esterone,PF 1-09 mL under ity of , 275 00:00: the skin [place] mg/1.1 mL 00 weekly. Medical injection Branch hydroxyprog 2023-0 Yes [id number] 275mg inject 1.1 [facility] esterone,PF 1-09 mL under ity of , 275 00:00: the skin [place] mg/1.1 mL 00 weekly. Medical injection Branch hydroxyprog 2023-0 Yes 275mg inject 1.1 [facility] esterone,PF 1-09 mL under ity of , 275 00:00: the skin [place] mg/1.1 mL 00 weekly. Medical injection Branch hydroxyprog 2023-0 Yes [id number] 275mg inject 1.1 [facility] esterone,PF 1-09 mL under ity of , 275 00:00: the skin [place] mg/1.1 mL 00 weekly. Medical injection Branch hydroxyprog 2023-0 Yes 275mg inject 1.1 [facility] esterone,PF 1-09 mL under ity of , 275 00:00: the skin [place] mg/1.1 mL 00 weekly. Medical injection Branch hydroxyprog 2023-0 Yes [id number] 275mg inject 1.1 [facility] esterone,PF 1-09 mL under ity of , 275 00:00: the skin [place] mg/1.1 mL 00 weekly. Medical injection Branch hydroxyprog 2023-0 Yes 275mg inject 1.1 [facility] esterone,PF 1-09 mL under ity of , 275 00:00: the skin [place] mg/1.1 mL 00 weekly. Medical injection Branch hydroxyprog 2023-0 Yes [id number] 275mg inject 1.1 [facility] esterone,PF 1-09 mL under ity of , 275 00:00: the skin [place] mg/1.1 mL 00 weekly. Medical injection Branch hydroxyprog 2023-0 Yes 275mg inject 1.1 [facility] esterone,PF 1-09 mL under ity of , 275 00:00: the skin [place] mg/1.1 mL 00 weekly. Medical injection Branch hydroxyprog 2023-0 Yes [id number] 275mg inject 1.1 [facility] esterone,PF 1-09 mL under ity of , 275 00:00: the skin [place] mg/1.1 mL 00 weekly. Medical injection Branch hydroxyprog 2023-0 Yes 275mg inject 1.1 [facility] esterone,PF 1-09 mL under ity of , 275 00:00: the skin [place] mg/1.1 mL 00 weekly. Medical injection Branch hydroxyprog 2023-0 Yes [id number] 275mg inject 1.1 [facility] esterone,PF 1-09 mL under ity of , 275 00:00: the skin [place] mg/1.1 mL 00 weekly. Medical injection Branch hydroxyprog 2023-0 Yes 275mg inject 1.1 [facility] esterone,PF 1-09 mL under ity of , 275 00:00: the skin [place] mg/1.1 mL 00 weekly. Medical injection Branch hydroxyprog 2023-0 Yes [id number] 275mg inject 1.1 [facility] esterone,PF 1-09 mL under ity of , 275 00:00: the skin [place] mg/1.1 mL 00 weekly. Medical injection Branch hydroxyprog 2023-0 Yes 275mg inject 1.1 [facility] esterone,PF 1-09 mL under ity of , 275 00:00: the skin [place] mg/1.1 mL 00 weekly. Medical injection Branch hydroxyprog 2023-0 Yes [id number] 275mg inject 1.1 [facility] esterone,PF 1-09 mL under ity of , 275 00:00: the skin [place] mg/1.1 mL 00 weekly. Medical injection Branch hydroxyprog 2023-0 Yes 275mg inject 1.1 [facility] esterone,PF 1-09 mL under ity of , 275 00:00: the skin [place] mg/1.1 mL 00 weekly. Medical injection Branch hydroxyprog 2023-0 Yes [id number] 275mg inject 1.1 [facility] esterone,PF 1-09 mL under ity of , 275 00:00: the skin [place] mg/1.1 mL 00 weekly. Medical injection Branch hydroxyprog 2023-0 Yes 275mg inject 1.1 [facility] esterone,PF 1-09 mL under ity of , 275 00:00: the skin [place] mg/1.1 mL 00 weekly. Medical injection Branch hydroxyprog 2023-0 Yes [id number] 275mg inject 1.1 [facility] esterone,PF 1-09 mL under ity of , 275 00:00: the skin [place] mg/1.1 mL 00 weekly. Medical injection Branch hydroxyprog 2023-0 Yes 275mg inject 1.1 [facility] esterone,PF 1-09 mL under ity of , 275 00:00: the skin [place] mg/1.1 mL 00 weekly. Medical injection Branch hydroxyprog 2023-0 Yes [id number] 275mg inject 1.1 [facility] esterone,PF 1-09 mL under ity of , 275 00:00: the skin [place] mg/1.1 mL 00 weekly. Medical injection Branch hydroxyprog 2023-0 Yes 275mg inject 1.1 [facility] esterone,PF 1-09 mL under ity of , 275 00:00: the skin [place] mg/1.1 mL 00 weekly. Medical injection Branch hydroxyprog 2023-0 Yes [id number] 275mg inject 1.1 [facility] esterone,PF 1-09 mL under ity of , 275 00:00: the skin [place] mg/1.1 mL 00 weekly. Medical injection Branch hydroxyprog 2023-0 Yes 275mg inject 1.1 [facility] esterone,PF 1-09 mL under ity of , 275 00:00: the skin [place] mg/1.1 mL 00 weekly. Medical injection Branch hydroxyprog 2023-0 Yes [id number] 275mg inject 1.1 [facility] esterone,PF 1-09 mL under ity of , 275 00:00: the skin [place] mg/1.1 mL 00 weekly. Medical injection Branch hydroxyprog 2023-0 Yes 275mg inject 1.1 [facility] esterone,PF 1-09 mL under ity of , 275 00:00: the skin [place] mg/1.1 mL 00 weekly. Medical injection Branch hydroxyprog 2023-0 Yes [id number] 275mg inject 1.1 [facility] esterone,PF 1-09 mL under ity of , 275 00:00: the skin [place] mg/1.1 mL 00 weekly. Medical injection Branch hydroxyprog 2023-0 Yes 275mg inject 1.1 [facility] esterone,PF 1-09 mL under ity of , 275 00:00: the skin [place] mg/1.1 mL 00 weekly. Medical injection Branch hydroxyprog 2023-0 Yes [id number] 275mg inject 1.1 [facility] esterone,PF 1-09 mL under ity of , 275 00:00: the skin [place] mg/1.1 mL 00 weekly. Medical injection Branch hydroxyprog 2023-0 Yes 275mg inject 1.1 [facility] esterone,PF 1-09 mL under ity of , 275 00:00: the skin [place] mg/1.1 mL 00 weekly. Medical injection Branch hydroxyprog 2023-0 Yes [id number] 275mg inject 1.1 [facility] esterone,PF 1-09 mL under ity of , 275 00:00: the skin [place] mg/1.1 mL 00 weekly. Medical injection Branch hydroxyprog 2023-0 Yes 275mg inject 1.1 [facility] esterone,PF 1-09 mL under ity of , 275 00:00: the skin [place] mg/1.1 mL 00 weekly. Medical injection Branch hydroxyprog 2023-0 Yes [id number] 275mg inject 1.1 [facility] esterone,PF 1-09 mL under ity of , 275 00:00: the skin [place] mg/1.1 mL 00 weekly. Medical injection Branch hydroxyprog 2023-0 Yes 275mg inject 1.1 [facility] esterone,PF 1-09 mL under ity of , 275 00:00: the skin [place] mg/1.1 mL 00 weekly. Medical injection Branch hydroxyprog 2023-0 Yes [id number] 275mg inject 1.1 [facility] esterone,PF 1-09 mL under ity of , 275 00:00: the skin [place] mg/1.1 mL 00 weekly. Medical injection Branch hydroxyprog 2023-0 Yes 275mg inject 1.1 [facility] esterone,PF 1-09 mL under ity of , 275 00:00: the skin [place] mg/1.1 mL 00 weekly. Medical injection Branch hydroxyprog 2023-0 Yes [id number] 275mg inject 1.1 [facility] esterone,PF 1-09 mL under ity of , 275 00:00: the skin [place] mg/1.1 mL 00 weekly. Medical injection Branch hydroxyprog 2023-0 Yes 275mg inject 1.1 [facility] esterone,PF 1-09 mL under ity of , 275 00:00: the skin [place] mg/1.1 mL 00 weekly. Medical injection Branch hydroxyprog 2023-0 Yes [id number] 275mg inject 1.1 [facility] esterone,PF 1-09 mL under ity of , 275 00:00: the skin [place] mg/1.1 mL 00 weekly. Medical injection Branch hydroxyprog 2023-0 Yes 275mg inject 1.1 [facility] esterone,PF 1-09 mL under ity of , 275 00:00: the skin [place] mg/1.1 mL 00 weekly. Medical injection Branch hydroxyprog 2023-0 Yes [id number] 275mg inject 1.1 [facility] esterone,PF 1-09 mL under ity of , 275 00:00: the skin [place] mg/1.1 mL 00 weekly. Medical injection Branch hydroxyprog 2023-0 Yes 275mg inject 1.1 [facility] esterone,PF 1-09 mL under ity of , 275 00:00: the skin [place] mg/1.1 mL 00 weekly. Medical injection Branch hydroxyprog 2023-0 Yes [id number] 275mg inject 1.1 [facility] esterone,PF 1-09 mL under ity of , 275 00:00: the skin [place] mg/1.1 mL 00 weekly. Medical injection Branch hydroxyprog 2023-0 Yes 275mg inject 1.1 [facility] esterone,PF 1-09 mL under ity of , 275 00:00: the skin [place] mg/1.1 mL 00 weekly. Medical injection Branch hydroxyprog 2023-0 Yes [id number] 275mg inject 1.1 [facility] esterone,PF 1-09 mL under ity of , 275 00:00: the skin [place] mg/1.1 mL 00 weekly. Medical injection Branch hydroxyprog 2023-0 Yes 275mg inject 1.1 [facility] esterone,PF 1-09 mL under ity of , 275 00:00: the skin [place] mg/1.1 mL 00 weekly. Medical injection Branch hydroxyprog 2023-0 Yes [id number] 275mg inject 1.1 [facility] esterone,PF 1-09 mL under ity of , 275 00:00: the skin [place] mg/1.1 mL 00 weekly. Medical injection Branch hydroxyprog 2023-0 Yes 275mg inject 1.1 [facility] esterone,PF 1-09 mL under ity of , 275 00:00: the skin [place] mg/1.1 mL 00 weekly. Medical injection Branch hydroxyprog 2023-0 Yes [id number] 275mg inject 1.1 [facility] esterone,PF 1-09 mL under ity of , 275 00:00: the skin [place] mg/1.1 mL 00 weekly. Medical injection Branch hydroxyprog 2023-0 Yes 275mg inject 1.1 [facility] esterone,PF 1-09 mL under ity of , 275 00:00: the skin [place] mg/1.1 mL 00 weekly. Medical injection Branch hydroxyprog 2023-0 Yes [id number] 275mg inject 1.1 [facility] esterone,PF 1-09 mL under ity of , 275 00:00: the skin [place] mg/1.1 mL 00 weekly. Medical injection Branch hydroxyprog 2023-0 Yes 275mg inject 1.1 [facility] esterone,PF 1-09 mL under ity of , 275 00:00: the skin [place] mg/1.1 mL 00 weekly. Medical injection Branch hydroxyprog 2023-0 Yes [id number] 275mg inject 1.1 [facility] esterone,PF 1-09 mL under ity of , 275 00:00: the skin [place] mg/1.1 mL 00 weekly. Medical injection Branch hydroxyprog 2023-0 Yes 275mg inject 1.1 [facility] esterone,PF 1-09 mL under ity of , 275 00:00: the skin [place] mg/1.1 mL 00 weekly. Medical injection Branch hydroxyprog 2023-0 Yes [id number] 275mg inject 1.1 [facility] esterone,PF 1-09 mL under ity of , 275 00:00: the skin [place] mg/1.1 mL 00 weekly. Medical injection Branch hydroxyprog 2023-0 Yes 275mg inject 1.1 [facility] esterone,PF 1-09 mL under ity of , 275 00:00: the skin [place] mg/1.1 mL 00 weekly. Medical injection Branch hydroxyprog 2023-0 Yes [id number] 275mg inject 1.1 [facility] esterone,PF 1-09 mL under ity of , 275 00:00: the skin [place] mg/1.1 mL 00 weekly. Medical injection Branch hydroxyprog 2023-0 2023- No 275mg inject 1.1 [facility] esterone,PF 1-09 05-25 mL under ity of , 275 00:00: 00:00 the skin [place] mg/1.1 mL 00 :00 weekly. Medical injection Branch hydroxyprog 2023-0 2023- No [id number] 275mg inject 1.1 [facility] esterone,PF 1- 05-25 mL under ity of , 275 00:00: 00:00 the skin [place] mg/1.1 mL 00 :00 weekly. Medical injection Branch hydroxyprog 2022- No 275mg inject 1.1 [facility] esterone,PF 1- 05-25 mL under ity of , 275 00:00: 00:00 the skin [place] mg/1.1 mL 00 :00 weekly. Medical injection Branch hydroxyprog 2022- No [id number] 275mg inject 1.1 [facility] esterone,PF 1- 05-25 mL under ity of , 275 00:00: 00:00 the skin [place] mg/1.1 mL 00 :00 weekly. Medical injection Branch hydroxyprog 2021-02 Yes [id number] 250mg 1 mL by [facility] esterone [facility]amus[facility] ity o f caproate, 00:00: lar route Jamal as ppres, 250 00 weekly. Medica l mg/mL Branch injection hydroxyprog 2021-02- No [id number] 250mg 1 mL by [facility] esterone 01-09 [facility] ity of caproate, 00:00: 00:00 [...] (1 mL) Branch injection hydroxyprog 2021-02 Yes [id number] 250mg 1 mL by [facility] esterone 2-15 [facility] ity o f 250 mg/mL 00:00: lar route [place] as injection 00 weekly. Medical Branch hydroxyprog 2021-02 Yes [id number] 250mg 1 mL by [facility] esterone 2-15 Intramus[facility] ity o f 250 mg/mL 00:00: lar route [place] as injection 00 weekly. Medical Branch hydroxyprog 2021-02- No [id number] 250mg 1 mL by [facility] esterone 2-15 -09 [facility] ity of 250 mg/mL 00:00: 00:00 [...] No AFTER Univ ers ne 0.12 % 04-02 BRUSHING ity o f mouthwash 00:00: 00:00 TEETH, [place] 00 :00 SWISH 15ML Medical IN MOUTH Branch FOR 30 SECONDS THEN SPIT OUT TWICE DAILY 2021-02 Yes Take by [facility] 25/iron 0-13 mouth. ity of fum/folic/d 09:26: [facility] 35 Medical (-1 Branch ORAL) 2021-02 Yes Take by Univer s 25/iron 0-13 mouth. ity of fum/folic/d 09:26: [place] [address] Medical (-1 Branch ORAL) 2021-02 Yes Take by Univer s 25/iron 0-13 mouth. ity of fum/folic/d 09:26: [place] [address] Medical (-1 Branch ORAL) 2021-02 Yes Take by Univer s 25/iron 0-13 mouth. ity of fum/folic/d 09:26: [place] [address] Medical (-1 Branch ORAL) 2021-02 Yes Take by Univer s 25/iron 0-13 mouth. ity of fum/folic/d 09:26: [place] [id number] Medical (-1 Branch ORAL) 2021-02 Yes Take by Univer s 25/iron 0-13 mouth. ity of fum/folic/d 09:26: [facility] 35 Medical (-1 Branch ORAL) 2021-02 Yes Take by Univer s 25/iron 0-13 mouth. ity of fum/folic/d 09:26: [facility] 35 Medical (-1 Branch ORAL) 2021-02 Yes Take by Univer s 25/iron 0-13 mouth. ity of fum/folic/d 09:26: [facility] 35 Medical (-1 Branch ORAL) 2021-02 Yes Take by Univer s 25/iron 0-13 mouth. ity of fum/folic/d 09:26: [facility] 35 Medical (-1 Branch ORAL) 2021-02 Yes Take by Univer s 25/iron 0-13 mouth. ity of fum/folic/d 09:26: [facility] 35 Medical (-1 Branch ORAL) 2021-02 Yes Take by Univer s 25/iron 0-13 mouth. ity of fum/folic/d 09:26: [facility] 35 Medical (-1 Branch ORAL) 2021-02 Yes Take by Univer s 25/iron 0-13 mouth. ity of fum/folic/d 09:26: [facility] 35 Medical (-1 Branch ORAL) 2021-02 Yes Take by Univer s 25/iron 0-13 mouth. ity of fum/folic/d 09:26: [facility] 35 Medical (-1 Branch ORAL) 2021-02 Yes Take by Univer s 25/iron 0-13 mouth. ity of fum/folic/d 09:26: [place] [id number] Medical (-1 Branch ORAL) 2021-02 Yes Take by Univer s 25/iron 0-13 mouth. ity of fum/folic/d 09:26: [place] [address] Medical (-1 Branch ORAL) 2021-02 Yes Take by Univer s 25/iron 0-13 mouth. ity of fum/folic/d 09:26: [place] [address] Medical (-1 Branch ORAL) 2021-02 Yes Take by Univer s 25/iron 0-13 mouth. ity of fum/folic/d 09:26: [place] [address] Medical (-1 Branch ORAL) 2021-02 Yes Take by Univer s 25/iron 0-13 mouth. ity of fum/folic/d 09:26: [place] [address] Medical (-1 Branch ORAL) 2021-02 Yes Take by Univer s 25/iron 0-13 mouth. ity of fum/folic/d 09:26: [place] [address] Medical (-1 Branch ORAL) 2021-02 Yes Take by Univer s 25/iron 0-13 mouth. ity of fum/folic/d 09:26: [facility] 35 Medical (-1 Branch ORAL) 2021-02 Yes Take by Univer s 25/iron 0-13 mouth. ity of fum/folic/d 09:26: [facility] 35 Medical (-1 Branch ORAL) 2021-02 Yes Take by Univer s 25/iron 0-13 mouth. ity of fum/folic/d 09:26: [place] [facility] 35 Medical (-1 Branch ORAL) 2021-02 Yes Take by Univer s 25/iron 0-13 mouth. ity of fum/folic/d 09:26: [facility] 35 Medical (-1 Branch ORAL) 2021-02 Yes Take by Univer s 25/iron 0-13 mouth. ity of fum/folic/d 09:26: [facility] 35 Medical (-1 Branch ORAL) 2021-02 Yes Take by Univer s 25/iron 0-13 mouth. ity of fum/folic/d 09:26: [facility] 35 Medical (-1 Branch ORAL) 2021-02 Yes Take by Univer s 25/iron 0-13 mouth. ity of fum/folic/d 09:26: [facility] 35 Medical (-1 Branch ORAL) 2021-02 Yes Take by Univer s 25/iron 0-13 mouth. ity of fum/folic/d 09:26: [place] [address] Medical (-1 Branch ORAL) 2021-02 Yes Take by Univer s 25/iron 0-13 mouth. ity of fum/folic/d 09:26: [place] [address] Medical (-1 Branch ORAL) 2021-02 Yes Take by Univer s 25/iron 0-13 mouth. ity of fum/folic/d 09:26: [facility] 35 Medical (-1 Branch ORAL) 2021-02 Yes Take by Univer s 25/iron 0-13 mouth. ity of fum/folic/d 09:26: [facility] 35 Medical (-1 Branch ORAL) 2021-02 Yes Take by Univer s 25/iron 0-13 mouth. ity of fum/folic/d 09:26: [facility] 35 Medical (-1 Branch ORAL) 2021-02 Yes Take by Univer s 25/iron 0-13 mouth. ity of fum/folic/d 09:26: [facility] 35 Medical (-1 Branch ORAL) 2021-02 Yes Take by Univer s 25/iron 0-13 mouth. ity of fum/folic/d 09:26: [facility] 35 Medical (-1 Branch ORAL) 2021-02 Yes Take by Univer s 25/iron 0-13 mouth. ity of fum/folic/d 09:26: [place] 35 Medical (-1 Branch ORAL) 2021-02 Yes Take by Univer s 25/iron 0-13 mouth. ity of fum/folic/d 09:26: [facility] 35 Medical (-1 Branch ORAL) 2021-02 Yes Take by Univer s 25/iron 0-13 mouth. ity of fum/folic/d 09:26: [place] 35 Medical (-1 Branch ORAL) 2021-02 Yes Take by Univer s 25/iron 0-13 mouth. ity of fum/folic/d 09:26: [place] 35 Medical (-1 Branch ORAL) 2021-02 Yes Take by Univer s 25/iron 0-13 mouth. ity of fum/folic/d 09:26: [facility] 35 Medical (-1 Branch ORAL) 2021-02 Yes Take by Univer s 25/iron 0-13 mouth. ity of fum/folic/d 09:26: [place] [address] Medical (-1 Branch ORAL) 2021-02 Yes Take by Univer s 25/iron 0-13 mouth. ity of fum/folic/d 09:26: [facility] 35 Medical (-1 Branch ORAL) 2021-02 Yes Take by Univer s 25/iron 0-13 mouth. ity of fum/folic/d 09:26: [facility] 35 Medical (-1 Branch ORAL) PROAIR HFA [...] on inhaler Medical Branch PROAIR HFA 0 3- No Univer s 90 8-30 05-27 ity of mcg/actuati 00:00: 00:00 [place] on inhaler 00 :00 Medical Branch norgestimat 0 Yes [id number] 1{tbl} Take 1 Univers e-ethinyl 8-16 tablet by ity o f estradioL [place]TRI-SPRINT 00 the Medical EC) morning. Branch 0.18/0.215/ 0.25 mg-35 mcg (28) tablet norgestimat 2021- No [id number] 1{tbl} Take 1 Univers e-ethinyl 8-16 10-13 tablet by ity of estradioL 00:00: 00:00 mouth [place] (TRI-SPRINT 00 :00 the Medical EC) morning. Branch 0.18/0.215/ 0.25 mg-35 mcg (28) tablet norgestimat 2020-02 Yes [id number]{tbl} Take 1 Univers e-ethinyl 1-22 tablet by ity o f estradioL 00:00: mouth [place] (ORTHO 00 daily. Medical TRI-CYCLEN, Branch 28,) 0.18/0.215/ 0.25 mg-35 mcg (28) tablet norgestimat 2020-02- No [id number] 1{tbl} Take 1 Univers e-ethinyl 1-22 10-13 tablet by ity of estradioL 00:00: 00:00 mouth [place] (ORTHO 00 :00 daily. [facility] TRI-CYCLEN, Branch 28,) 0.18/0.215/ 0.25 mg-35 mcg (28) tablet Immunizations Ordered Immunization Filled Immunization Date Status Commen ts Source Name Name TD 2022-05-26 Completed [facility] of 00:00:00 [facility] TDAP 2022-05-26 Completed University of 00:00:00 [facility] TDAP 2022-05-26 Completed University of 00:00: [facility] TDAP 2022-05-26 Completed University of 00:00: [facility] TDAP 2022-05-26 Completed University of 00:00:00 [facility] TDAP 2022-05-26 Completed University of 00:00:00 [facility] TDAP 2022-05-26 Completed University of 00:00:00 [facility] TDAP 2022-05-26 Completed University of 00:00: [facility] TDAP 2022-05-26 Completed University of 00:00:00 [facility] TDAP 2022-05-26 Completed University of 00:00:00 [facility] TDAP 2022-05-26 Completed University of 00:00:00 [facility] TDAP 2022-05-26 Completed University of 00:00:00 [place] [facility] TDAP 2022-05-26 Completed University of 00:00:00 [place] [facility] TDAP 2022-05-26 Completed University of 00:00:00 [place] [facility] TDAP 2022-05-26 Completed University of 00:00:00 [place] [facility] TDAP 2022-05-26 Completed University of 00:00:00 [place] [facility] TDAP 2022-05-26 Completed University of 00:00:00 [place] [facility] TDAP 2022-05-26 Completed University of 00:00:00 [place] [facility] TDAP 2022-05-26 Completed University of 00:00:00 [place] [facility] TDAP 2022-05-26 Completed University of 00:00:00 [place] [facility] TDAP 2022-05-26 Completed University of 00:00:00 [place] [facility] TDAP 2022-05-26 Completed University of 00:00:00 [facility] TDAP 2022-05-26 Completed University of 00:00:00 [place] [facility] TDAP 2022-05-26 Completed University of 00:00:00 [place] [facility] TDAP 2022-05-26 Completed University of 00:00:00 [facility] TDAP 2022-05-26 Completed University of 00:00:00 [facility] TDAP 2020-06-09 Completed University of 00:00:00 [place] [facility] TDAP 2020-06-09 Completed University of 00:00:00 [facility] TDAP 2020-06-09 Completed University of 00:00:00 [place] [facility] TDAP 2020-06-09 Completed University of 00:00:00 [place] [facility] TDAP 2020-06-09 Completed University of 00:00:00 [place] [facility] TDAP 2020-06-09 Completed University of 00:00:00 [place] [facility] TDAP 2020-06-09 Completed University of 00:00:00 [place] [facility] TDAP 2020-06-09 Completed University of 00:00:00 [place] [facility] TDAP 2020-06-09 Completed University of 00:00:00 [place] [facility] TDAP 2020-06-09 Completed University of 00:00:00 [place] [facility] TDAP 2020-06-09 Completed University of 00:00:00 [facility] TDAP 2020-06-09 Completed University of 00:00:00 [place] [facility] TDAP 2020-06-09 Completed University of 00:00:00 [place] [facility] TDAP 2020-06-09 Completed University of 00:00:00 [place] [facility] TDAP 2020-06-09 Completed University of 00:00:00 [place] [facility] TDAP 2020-06-09 Completed University of 00:00:00 [place] [facility] TDAP 2020-06-09 Completed University of 00:00:00 [place] [facility] TDAP 2020-06-09 Completed University of 00:00:00 [place] [facility] TDAP 2020-06-09 Completed University of 00:00:00 [place] [facility] TDAP 2020-06-09 Completed University of 00:00:00 [place] [facility] TDAP 2020-06-09 Completed University of 00:00:00 [place] [facility] TDAP 2020-06-09 Completed University of 00:00:00 [facility] TDAP 2020-06-09 Completed University of 00:00:00 [place] [facility] TDAP 2020-06-09 Completed University of 00:00:00 [place] [facility] TDAP 2020-06-09 Completed University of 00:00:00 [facility] TDAP 2020-06-09 Completed University of 00:00:00 [place] [facility] TDAP 2020-06-09 Completed University of 00:00:00 [place] [facility] TDAP 2020-06-09 Completed University of 00:00:00 [facility] TDAP 2020-06-09 Completed University of 00:00:00 [facility] TDAP 2020-06-09 Completed University of 00:00:00 [place] [facility] TDAP 2020-06-09 Completed University of 00:00:00 [place] [facility] TDAP 2020-06-09 Completed University of 00:00:00 [place] [facility] TDAP 2020-06-09 Completed University of 00:00:00 [place] [facility] TDAP 2020-06-09 Completed University of 00:00:00 [place] [facility] TDAP 2020-06-09 Completed University of 00:00:00 [place] [facility] TDAP 2020-06-09 Completed University of 00:00:00 [place] [facility] TDAP 2020-06-09 Completed University of 00:00:00 [place] [facility] TDAP 2020-06-09 Completed University of 00:00:00 [facility] TDAP 2020-06-09 Completed University of 00:00:00 [facility] TDAP 2020-06-09 Completed University of 00:00:00 [facility] TDAP 2020-06-09 Completed University of 00:00:00 [facility] TDAP 2020-06-09 Completed University of 00:00:00 [facility] TDAP 2020-06-09 Completed University of 00:00:00 [facility] TDAP 2020-06-09 Completed University of 00:00:00 [facility] TDAP 2020-06-09 Completed University of 00:00:00 [facility] TDAP 2020-06-09 Completed University of 00:00:00 [facility] TDAP 2020-06-09 Completed University of 00:00:00 [facility] TDAP 2020-06-09 Completed University of 00:00:00 [facility] TDAP 2020-06-09 Completed University of 00:00:00 [facility] TDAP 2020-06-09 Completed University of 00:00:00 [facility] TDAP 2020-06-09 Completed University of 00:00:00 [facility] TDAP 2020-06-09 Completed University of 00:00:00 [facility] TDAP 2020-06-09 Completed University of 00:00:00 [facility] TDAP 2020-06-09 Completed University of 00:00:00 [facility] TDAP 2020-06-09 Completed University of 00:00:00 [facility] TDAP 2020-06-09 Completed University of 00:00:00 [facility] TDAP 2020-06-09 Completed University of 00:00:00 [facility] TDAP 2020-06-09 Completed University of 00:00:00 [facility] TDAP 2020-06-09 Completed University of 00:00:00 [facility] TDAP 2020-06-09 Completed University of 00:00:00 [facility] TDAP 2020-06-09 Completed University of 00:00:00 [facility] TDAP 2020-06-09 Completed University of 00:00:00 [facility] TDAP 2020-06-09 Completed University of 00:00:00 [facility] Influenza Virus 2020-01-21 Completed Universit y of [...] Vaccine 2018-10-18 Completed Uni versity of 00:00:00 [facility] TDAP 2018-10-18 Completed University of 00:00:00 [facility] Meningococcal B, OMV 2018-10-18 Completed Univ ersity of 00:00:00 [facility] Meningococcal Vaccine 2018-10-18 Completed Uni versity of 00:00:00 [facility] TDAP 2018-10-18 Completed University of 00:00:00 [facility] Meningococcal B, OMV 2018-10-18 Completed Univ ersity of 00:00:00 [place] [facility] Meningococcal Vaccine 2018-10-18 Completed Uni versity of 00:00:00 [place] [facility] TDAP 2018-10-18 Completed University of 00:00:00 [facility] Meningococcal B, OMV 2018-10-18 Completed Univ ersity of 00:00:00 [place] [facility] Meningococcal Vaccine 2018-10-18 Completed Uni versity of 00:00:00 [facility] TDAP 2018-10-18 Completed University of 00:00:00 [facility] Meningococcal B, OMV 2018-10-18 Completed Univ ersity of 00:00:00 [place] [facility] Meningococcal Vaccine 2018-10-18 Completed Uni versity of 00:00:00 [facility] TDAP 2018-10-18 Completed University of 00:00:00 [facility] Meningococcal B, OMV 2018-10-18 Completed Univ ersity of 00:00:00 [place] [facility] Meningococcal Vaccine 2018-10-18 Completed Uni versity of 00:00:00 [facility] TDAP 2018-10-18 Completed University of 00:00:00 [facility] Meningococcal B, OMV 2018-10-18 Completed Univ ersity of 00:00:00 [facility] Meningococcal Vaccine 2018-10-18 Completed Uni versity of 00:00:00 [facility] TDAP 2018-10-18 Completed University of 00:00:00 [facility] Meningococcal B, OMV 2018-10-18 Completed Univ ersity of 00:00:00 [facility] Meningococcal Vaccine 2018-10-18 Completed Uni versity of 00:00:00 [facility] TDAP 2018-10-18 Completed University of 00:00:00 [facility] Meningococcal B, OMV 2018-10-18 Completed Univ ersity of 00:00:00 [place] [facility] Meningococcal Vaccine 2018-10-18 Completed Uni versity of 00:00:00 [place] [facility] TDAP 2018-10-18 Completed University of 00:00:00 [place] [facility] Meningococcal B, OMV 2018-10-18 Completed Univ ersity of 00:00:00 [place] [facility] Meningococcal Vaccine 2018-10-18 Completed Uni versity of 00:00:00 [facility] TDAP 2018-10-18 Completed University of 00:00:00 [facility] Meningococcal B, OMV 2018-10-18 Completed Univ ersity of 00:00:00 [place] [facility] Meningococcal Vaccine 2018-10-18 Completed Uni versity of 00:00:00 [place] [facility] TDAP 2018-10-18 Completed University of 00:00:00 [facility] Meningococcal B, OMV 2018-10-18 Completed Univ ersity of 00:00:00 [place] [facility] Meningococcal Vaccine 2018-10-18 Completed Uni versity of 00:00:00 [facility] TDAP 2018-10-18 Completed University of 00:00:00 [facility] Meningococcal B, OMV 2018-10-18 Completed Univ ersity of 00:00:00 [place] [facility] Meningococcal Vaccine 2018-10-18 Completed Uni versity of 00:00:00 [facility] TDAP 2018-10-18 Completed University of 00:00:00 [facility] Meningococcal B, OMV 2018-10-18 Completed Univ ersity of 00:00:00 [place] [facility] Meningococcal Vaccine 2018-10-18 Completed Uni versity of 00:00:00 [facility] TDAP 2018-10-18 Completed University of 00:00:00 [facility] Meningococcal B, OMV 2018-10-18 Completed Univ ersity of 00:00:00 [place] [facility] Meningococcal Vaccine 2018-10-18 Completed Uni versity of 00:00:00 [facility] TDAP 2018-10-18 Completed University of 00:00:00 [facility] Meningococcal B, OMV 2018-10-18 Completed Univ ersity of 00:00:00 [facility] Meningococcal Vaccine 2018-10-18 Completed Uni versity of 00:00:00 [facility] TDAP 2018-10-18 Completed University of 00:00:00 [facility] Meningococcal B, OMV 2018-10-18 Completed Univ ersity of 00:00:00 [place] [facility] Meningococcal Vaccine 2018-10-18 Completed Uni versity of 00:00:00 [place] [facility] TDAP 2018-10-18 Completed University of 00:00:00 [place] [facility] Meningococcal B, OMV 2018-10-18 Completed Univ ersity of 00:00:00 [place] [facility] Meningococcal Vaccine 2018-10-18 Completed Uni versity of 00:00:00 [place] [facility] TDAP 2018-10-18 Completed University of 00:00:00 [facility] Meningococcal B, OMV 2018-10-18 Completed Univ ersity of 00:00:00 [place] [facility] Meningococcal Vaccine 2018-10-18 Completed Uni versity of 00:00:00 [place] [facility] TDAP 2018-10-18 Completed University of 00:00:00 [facility] Meningococcal B, OMV 2018-10-18 Completed Univ ersity of 00:00:00 [place] [facility] Meningococcal Vaccine 2018-10-18 Completed Uni versity of 00:00:00 [place] [facility] TDAP 2018-10-18 Completed University of 00:00:00 [facility] Meningococcal B, OMV 2018-10-18 Completed Univ ersity of 00:00:00 [place] [facility] Meningococcal Vaccine 2018-10-18 Completed Uni versity of 00:00:00 [facility] TDAP 2018-10-18 Completed University of 00:00:00 [facility] Meningococcal B, OMV 2018-10-18 Completed Univ ersity of 00:00:00 [place] [facility] Meningococcal Vaccine 2018-10-18 Completed Uni versity of 00:00:00 [place] [facility] TDAP 2018-10-18 Completed University of 00:00:00 [facility] Meningococcal B, OMV 2018-10-18 Completed Univ ersity of 00:00:00 [place] [facility] Meningococcal Vaccine 2018-10-18 Completed Uni versity of 00:00:00 [facility] TDAP 2018-10-18 Completed University of 00:00:00 [facility] Meningococcal B, OMV 2018-10-18 Completed Univ ersity of 00:00:00 [facility] Meningococcal Vaccine 2018-10-18 Completed Uni versity of 00:00:00 [facility] TDAP 2018-10-18 Completed University of 00:00:00 [facility] Meningococcal B, OMV 2018-10-18 Completed Univ ersity of 00:00:00 [place] [facility] Meningococcal Vaccine 2018-10-18 Completed Uni versity of 00:00:00 [place] [facility] TDAP 2018-10-18 Completed University of 00:00:00 [place] [facility] Meningococcal B, OMV 2018-10-18 Completed Univ ersity of 00:00:00 [place] [facility] Meningococcal Vaccine 2018-10-18 Completed Uni versity of 00:00:00 [place] [facility] TDAP 2018-10-18 Completed University of 00:00:00 [facility] Meningococcal B, OMV 2018-10-18 Completed Univ ersity of 00:00:00 [place] [facility] Meningococcal Vaccine 2018-10-18 Completed Uni versity of 00:00:00 [place] [facility] TDAP 2018-10-18 Completed University of 00:00:00 [facility] Meningococcal B, OMV 2018-10-18 Completed Univ ersity of 00:00:00 [facility] Meningococcal Vaccine 2018-10-18 Completed Uni versity of 00:00:00 [facility] TDAP 2018-10-18 Completed University of 00:00:00 [facility] Meningococcal B, OMV 2018-10-18 Completed Univ ersity of 00:00:00 [place] [facility] Meningococcal Vaccine 2018-10-18 Completed Uni versity of 00:00:00 [facility] TDAP 2018-10-18 Completed University of 00:00:00 [facility] Meningococcal B, OMV 2018-10-18 Completed Univ ersity of 00:00:00 [place] [facility] Meningococcal Vaccine 2018-10-18 Completed Uni versity of 00:00:00 [facility] TDAP 2018-10-18 Completed University of 00:00:00 [facility] Meningococcal B, OMV 2018-10-18 Completed Univ ersity of 00:00:00 [place] [facility] Meningococcal Vaccine 2018-10-18 Completed Uni versity of 00:00:00 [facility] TDAP 2018-10-18 Completed University of 00:00:00 [facility] Meningococcal B, OMV 2018-10-18 Completed Univ ersity of 00:00:00 [facility] Meningococcal Vaccine 2018-10-18 Completed Uni versity of 00:00:00 [facility] TDAP 2018-10-18 Completed University of 00:00:00 [place] [facility] Meningococcal B, OMV 2018-10-18 Completed Univ ersity of 00:00:00 [place] [facility] Meningococcal Vaccine 2018-10-18 Completed Uni versity of 00:00:00 [place] [facility] TDAP 2018-10-18 Completed University of 00:00:00 [place] [facility] Meningococcal B, OMV 2018-10-18 Completed Univ ersity of 00:00:00 [place] [facility] Meningococcal Vaccine 2018-10-18 Completed Uni versity of 00:00:00 [place] [facility] TDAP 2018-10-18 Completed University of 00:00:00 [place] [facility] Meningococcal B, OMV 2018-10-18 Completed Univ ersity of 00:00:00 [facility] Meningococcal Vaccine 2018-10-18 Completed Uni versity of 00:00:00 [facility] TDAP 2018-10-18 Completed University of 00:00:00 [facility] Meningococcal B, OMV 2018-10-18 Completed Univ ersity of 00:00:00 [facility] Meningococcal Vaccine 2018-10-18 Completed Uni versity of 00:00:00 [facility] TDAP 2018-10-18 Completed University of 00:00:00 [facility] Meningococcal B, OMV 2018-10-18 Completed Univ ersity of 00:00:00 [facility] Meningococcal Vaccine 2018-10-18 Completed Uni versity of 00:00:00 [facility] TDAP 2018-10-18 Completed [facility] of 00:00:00 [facility] Meningococcal B, OMV 2018-10-18 Completed Univ ersity of 00:00:00 [facility] Meningococcal Vaccine 2018-10-18 Completed Uni versity of 00:00:00 [facility] TDAP 2018-10-18 Completed University of 00:00:00 [facility] Meningococcal B, OMV 2018-10-18 Completed Univ ersity of 00:00:00 [facility] Meningococcal 2018-10-18 Completed University of Polysaccharide 00:00:00 [place] [facility] (groups A, C, Y and Branc h W-[id number]) conjugate vaccine ([id number]) Meningococcal Vaccine 2018-10-18 Completed Uni versity of 00:00:00 [facility] TDAP 2018-10-18 Completed [facility] of 00:00:00 [facility] Meningococcal B, OMV 2018-10-18 Completed Univ ersity of 00:00:00 [facility] Meningococcal 2018-10-18 Completed University of Polysaccharide 00:00:00 [facility] (groups A, C, Y and Branc h W-135) conjugate vaccine (MCV4P) Meningococcal Vaccine 2018-10-18 Completed [facility] 00:00:00 [facility] TDAP 2018-10-18 Completed [facility] 00:00:00 [facility] Meningococcal B, OMV 2018-10-18 Completed [facility] 00:00:00 [facility] Meningococcal 2018-10-18 Completed [facility] Polysaccharide 00:00:00 [facility] (groups A, C, Y and Branc h W-135) conjugate vaccine (MCV4P) Meningococcal Vaccine 2018-10-18 Completed [facility] 00:00:00 [facility] TDAP 2018-10-18 Completed [facility] 00:00:00 [facility] Meningococcal B, OMV 2018-10-18 Completed [facility] 00:00:00 [facility] Meningococcal 2018-10-18 Completed [facility] Polysaccharide 00:00:00 [facility] (groups A, C, Y and Branc h W-135) conjugate vaccine (MCV4P) Meningococcal Vaccine 2018-10-18 Completed [facility] 00:00:00 [facility] TDAP 2018-10-18 Completed [facility] 00:00:00 [facility] Meningococcal B, OMV 2018-10-18 Completed [facility] 00:00:00 [facility] Meningococcal 2018-10-18 Completed [facility] Polysaccharide 00:00:00 [facility] (groups A, C, Y and Branc h W-135) conjugate vaccine (MCV4P) Meningococcal Vaccine 2018-10-18 Completed [facility] 00:00:00 [facility] TDAP 2018-10-18 Completed [facility] 00:00:00 [facility] Meningococcal B, OMV 2018-10-18 Completed [facility] 00:00:00 [facility] Meningococcal 2018-10-18 Completed [facility] Polysaccharide 00:00:00 [facility] (groups A, C, Y and Branc h W-135) conjugate vaccine (MCV4P) Meningococcal Vaccine 2018-10-18 Completed [facility] 00:00:00 [facility] TDAP 2018-10-18 Completed [facility] 00:00:00 [facility] Meningococcal B, OMV 2018-10-18 Completed [facility] 00:00:00 [facility] Meningococcal 2018-10-18 Completed [facility] Polysaccharide 00:00:00 [facility] (groups A, C, Y and Branc h W-135) conjugate vaccine (MCV4P) Meningococcal Vaccine 2018-10-18 Completed [facility] 00:00:00 [facility] TDAP 2018-10-18 Completed [facility] 00:00:00 [facility] Meningococcal B, OMV 2018-10-18 Completed [facility] 00:00:00 [facility] Meningococcal 2018-10-18 Completed [facility] Polysaccharide 00:00:00 [facility] (groups A, C, Y and Branc h W-135) conjugate vaccine (MCV4P) Meningococcal Vaccine 2018-10-18 Completed [facility] 00:00:00 [facility] TDAP 2018-10-18 Completed [facility] 00:00:00 [facility] Meningococcal B, OMV 2018-10-18 Completed [facility] 00:00:00 [facility] Meningococcal 2018-10-18 Completed [facility] Polysaccharide 00:00:00 [facility] (groups A, C, Y and Branc h W-135) conjugate vaccine (MCV4P) Meningococcal Vaccine 2018-10-18 Completed [facility] 00:00:00 [facility] TDAP 2018-10-18 Completed [facility] 00:00:00 [facility] Meningococcal B, OMV 2018-10-18 Completed [facility] 00:00:00 [facility] Meningococcal 2018-10-18 Completed [facility] Polysaccharide 00:00:00 [facility] (groups A, C, Y and Branc h W-135) conjugate vaccine (MCV4P) Meningococcal Vaccine 2018-10-18 Completed [facility] 00:00:00 [facility] TDAP 2018-10-18 Completed [facility] 00:00:00 [facility] Meningococcal B, OMV 2018-10-18 Completed [facility] 00:00:00 [facility] Meningococcal 2018-10-18 Completed [facility] Polysaccharide 00:00:00 [facility] (groups A, C, Y and Branc h W-135) conjugate vaccine (MCV4P) Meningococcal Vaccine 2018-10-18 Completed [facility] 00:00:00 [facility] TDAP 2018-10-18 Completed [facility] 00:00:00 [facility] Meningococcal B, OMV 2018-10-18 Completed [facility] 00:00:00 [facility] Meningococcal 2018-10-18 Completed [facility] Polysaccharide 00:00:00 [facility] (groups A, C, Y and Branc h W-135) conjugate vaccine (MCV4P) Meningococcal Vaccine 2018-10-18 Completed [facility] 00:00:00 [facility] TDAP 2018-10-18 Completed [facility] 00:00:00 [facility] Meningococcal B, OMV 2018-10-18 Completed [facility] 00:00:00 [facility] Meningococcal 2018-10-18 Completed [facility] Polysaccharide 00:00:00 [facility] (groups A, C, Y and Branc h W-135) conjugate vaccine (MCV4P) Meningococcal Vaccine 2018-10-18 Completed [facility] 00:00:00 [facility] TDAP 2018-10-18 Completed [facility] 00:00:00 [facility] Meningococcal B, OMV 2018-10-18 Completed [facility] 00:00:00 [facility] Meningococcal 2018-10-18 Completed [facility] Polysaccharide 00:00:00 [facility] (groups A, C, Y and Branc h W-135) conjugate vaccine (MCV4P) Meningococcal Vaccine 2018-10-18 Completed [facility] 00:00:00 [facility] TDAP 2018-10-18 Completed [facility] 00:00:00 [facility] Meningococcal B, OMV 2018-10-18 Completed [facility] 00:00:00 [facility] Meningococcal 2018-10-18 Completed [facility] Polysaccharide 00:00:00 [facility] (groups A, C, Y and Branc h W-135) conjugate vaccine (MCV4P) Meningococcal Vaccine 2018-10-18 Completed [facility] 00:00:00 [facility] TDAP 2018-10-18 Completed [facility] 00:00:00 [facility] Meningococcal B, OMV 2018-10-18 Completed [facility] 00:00:00 [facility] Meningococcal 2018-10-18 Completed [facility] Polysaccharide 00:00:00 [facility] (groups A, C, Y and Branc h W-135) conjugate vaccine (MCV4P) Meningococcal Vaccine 2018-10-18 Completed [facility] 00:00:00 [facility] TDAP 2018-10-18 Completed [facility] 00:00:00 [facility] Meningococcal B, OMV 2018-10-18 Completed [facility] 00:00:00 [facility] Meningococcal 2018-10-18 Completed [facility] Polysaccharide 00:00:00 [facility] (groups A, C, Y and Branc h W-135) conjugate vaccine (MCV4P) Meningococcal Vaccine 2018-10-18 Completed [facility] 00:00:00 [facility] TDAP 2018-10-18 Completed [facility] 00:00:00 [facility] Meningococcal B, OMV 2018-10-18 Completed [facility] 00:00:00 [facility] Meningococcal 2018-10-18 Completed [facility] Polysaccharide 00:00:00 [facility] (groups A, C, Y and Branc h W-135) conjugate vaccine (MCV4P) Meningococcal Vaccine 2018-10-18 Completed [facility] 00:00:00 [facility] TDAP 2018-10-18 Completed [facility] 00:00:00 [facility] Meningococcal B, OMV 2018-10-18 Completed [facility] 00:00:00 [facility] Meningococcal 2018-10-18 Completed [facility] Polysaccharide 00:00:00 [facility] (groups A, C, Y and Branc h W-135) conjugate vaccine (MCV4P) Meningococcal Vaccine 2018-10-18 Completed [facility] 00:00:00 [facility] TDAP 2018-10-18 Completed [facility] 00:00:00 [facility] Meningococcal B, OMV 2018-10-18 Completed [facility] 00:00:00 [facility] Meningococcal 2018-10-18 Completed [facility] Polysaccharide 00:00:00 [facility] (groups A, C, Y and Branc h W-135) conjugate vaccine (MCV4P) Meningococcal Vaccine 2018-10-18 Completed [facility] 00:00:00 [facility] TDAP 2018-10-18 Completed [facility] 00:00:00 [facility] Meningococcal B, OMV 2018-10-18 Completed [facility] 00:00:00 [facility] Meningococcal 2018-10-18 Completed [facility] Polysaccharide 00:00:00 [facility] (groups A, C, Y and Branc h W-135) conjugate vaccine (MCV4P) Meningococcal Vaccine 2018-10-18 Completed [facility] 00:00:00 [facility] TDAP 2018-10-18 Completed [facility] 00:00:00 [facility] Meningococcal B, OMV 2018-10-18 Completed [facility] 00:00:00 [facility] Meningococcal 2018-10-18 Completed [facility] Polysaccharide 00:00:00 [facility] (groups A, C, Y and Branc h W-135) conjugate vaccine (MCV4P) Meningococcal Vaccine 2018-10-18 Completed [facility] 00:00:00 [facility] TDAP 2018-10-18 Completed [facility] 00:00:00 [facility] Meningococcal B, OMV 2018-10-18 Completed [facility] 00:00:00 [facility] Meningococcal 2018-10-18 Completed [facility] Polysaccharide 00:00:00 [facility] (groups A, C, Y and Branc h W-135) conjugate vaccine (MCV4P) Meningococcal Vaccine 2018-10-18 Completed [facility] 00:00:00 [facility] TDAP 2018-10-18 Completed [facility] 00:00:00 [facility] Meningococcal B, OMV 2018-10-18 Completed [facility] 00:00:00 [facility] Meningococcal 2018-10-18 Completed [facility] Polysaccharide 00:00:00 [facility] (groups A, C, Y and Branc h W-135) conjugate vaccine (MCV4P) Meningococcal Vaccine 2018-10-18 Completed [facility] 00:00:00 [facility] TDAP 2018-10-18 Completed [facility] 00:00:00 [facility] Meningococcal B, OMV 2018-10-18 Completed [facility] 00:00:00 [facility] Meningococcal 2018-10-18 Completed [facility] Polysaccharide 00:00:00 [facility] (groups A, C, Y and Branc h W-135) conjugate vaccine (MCV4P) Meningococcal Vaccine 2018-10-18 Completed [facility] 00:00:00 [facility] TDAP 2018-10-18 Completed [facility] 00:00:00 [facility] Meningococcal B, OMV 2018-10-18 Completed [facility] 00:00:00 [facility] Meningococcal 2018-10-18 Completed [facility] Polysaccharide 00:00:00 [facility] (groups A, C, Y and Branc h W-135) conjugate vaccine (MCV4P) DTAP 2006-10-25 Completed [facility] 00:00:00 [facility] Hepatitis A Adult 2006-10-25 Completed [facility] 00:00:00 [facility] Polio (IPV/OPV) 2006-10-25 Completed [facility] 00:00:00 [facility] DTAP 2006-10-25 Completed [facility] 00:00:00 [facility] Hepatitis A Adult 2006-10-25 Completed [facility] 00:00:00 [facility] Polio (IPV/OPV) 2006-10-25 Completed [facility] 00:00:00 [facility] DTAP 2006-10-25 Completed [facility] 00:00:00 [facility] Hepatitis A Adult 2006-10-25 Completed [facility] 00:00:00 [facility] Polio (IPV/OPV) 2006-10-25 Completed [facility] 00:00:00 [facility] DTAP 2006-10-25 Completed [facility] 00:00:00 [facility] Hepatitis A Adult 2006-10-25 Completed [facility] 00:00:00 [facility] Polio (IPV/OPV) 2006-10-25 Completed [facility] 00:00:00 [facility] DTAP 2006-10-25 Completed [facility] 00:00:00 [facility] Hepatitis A Adult 2006-10-25 Completed [facility] 00:00:00 [facility] Polio (IPV/OPV) 2006-10-25 Completed [facility] 00:00:00 [facility] DTAP 2006-10-25 Completed [facility] 00:00:00 [facility] Hepatitis A Adult 2006-10-25 Completed [facility] 00:00:00 [facility] Polio (IPV/OPV) 2006-10-25 Completed [facility] 00:00:00 [facility] DTAP 2006-10-25 Completed [facility] 00:00:00 [facility] Hepatitis A Adult 2006-10-25 Completed [facility] 00:00:00 [facility] Polio (IPV/OPV) 2006-10-25 Completed [facility] 00:00:00 [facility] DTAP 2006-10-25 Completed [facility] 00:00:00 [facility] Hepatitis A Adult 2006-10-25 Completed [facility] 00:00:00 [facility] Polio (IPV/OPV) 2006-10-25 Completed [facility] 00:00:00 [facility] DTAP 2006-10-25 Completed [facility] 00:00:00 [facility] Hepatitis A Adult 2006-10-25 Completed [facility] 00:00:00 [facility] Polio (IPV/OPV) 2006-10-25 Completed [facility] 00:00:00 [facility] DTAP 2006-10-25 Completed [facility] 00:00:00 [facility] Hepatitis A Adult 2006-10-25 Completed [facility] 00:00:00 [facility] Polio (IPV/OPV) 2006-10-25 Completed [facility] 00:00:00 [facility] DTAP 2006-10-25 Completed [facility] 00:00:00 [facility] Hepatitis A Adult 2006-10-25 Completed [facility] 00:00:00 [facility] Polio (IPV/OPV) 2006-10-25 Completed [facility] 00:00:00 [facility] DTAP 2006-10-25 Completed [facility] 00:00:00 [facility] Hepatitis A Adult 2006-10-25 Completed [facility] 00:00:00 [facility] Polio (IPV/OPV) 2006-10-25 Completed [facility] 00:00:00 [facility] DTAP 2006-10-25 Completed [facility] 00:00:00 [facility] Hepatitis A Adult 2006-10-25 Completed [facility] 00:00:00 [facility] Polio (IPV/OPV) 2006-10-25 Completed [facility] 00:00:00 [facility] DTAP 2006-10-25 Completed [facility] 00:00:00 [facility] Hepatitis A Adult 2006-10-25 Completed [facility] 00:00:00 [facility] Polio (IPV/OPV) 2006-10-25 Completed [facility] 00:00:00 [facility] DTAP 2006-10-25 Completed [facility] 00:00:00 [facility] Hepatitis A Adult 2006-10-25 Completed [facility] 00:00:00 [facility] Polio (IPV/OPV) 2006-10-25 Completed [facility] 00:00:00 [facility] DTAP 2006-10-25 Completed [facility] 00:00:00 [facility] Hepatitis A Adult 2006-10-25 Completed [facility] 00:00:00 [facility] Polio (IPV/OPV) 2006-10-25 Completed [facility] 00:00:00 [facility] DTAP 2006-10-25 Completed [facility] 00:00:00 [facility] Hepatitis A Adult 2006-10-25 Completed [facility] 00:00:00 [facility] Polio (IPV/OPV) 2006-10-25 Completed [facility] 00:00:00 [facility] DTAP 2006-10-25 Completed [facility] 00:00:00 [facility] Hepatitis A Adult 2006-10-25 Completed [facility] 00:00:00 [facility] Polio (IPV/OPV) 2006-10-25 Completed [facility] 00:00:00 [facility] DTAP 2006-10-25 Completed [facility] 00:00:00 [facility] Hepatitis A Adult 2006-10-25 Completed [facility] 00:00:00 [facility] Polio (IPV/OPV) 2006-10-25 Completed [facility] 00:00:00 [facility] DTAP 2006-10-25 Completed [facility] 00:00:00 [facility] Hepatitis A Adult 2006-10-25 Completed [facility] 00:00:00 [facility] Polio (IPV/OPV) 2006-10-25 Completed [facility] 00:00:00 [facility] DTAP 2006-10-25 Completed [facility] 00:00:00 [facility] Hepatitis A Adult 2006-10-25 Completed [facility] 00:00:00 [facility] Polio (IPV/OPV) 2006-10-25 Completed [facility] 00:00:00 [facility] DTAP 2006-10-25 Completed [facility] 00:00:00 [facility] Hepatitis A Adult 2006-10-25 Completed [facility] 00:00:00 [facility] Polio (IPV/OPV) 2006-10-25 Completed [facility] 00:00:00 [facility] DTAP 2006-10-25 Completed [facility] 00:00:00 [facility] Hepatitis A Adult 2006-10-25 Completed [facility] 00:00:00 [facility] Polio (IPV/OPV) 2006-10-25 Completed [facility] 00:00:00 [facility] DTAP 2006-10-25 Completed [facility] 00:00:00 [facility] Hepatitis A Adult 2006-10-25 Completed [facility] 00:00:00 [facility] Polio (IPV/OPV) 2006-10-25 Completed [facility] 00:00:00 [facility] DTAP 2006-10-25 Completed [facility] 00:00:00 [facility] Hepatitis A Adult 2006-10-25 Completed [facility] 00:00:00 [facility] Polio (IPV/OPV) 2006-10-25 Completed [facility] 00:00:00 [facility] DTAP 2006-10-25 Completed [facility] 00:00:00 [facility] Hepatitis A Adult 2006-10-25 Completed [facility] 00:00:00 [facility] Polio (IPV/OPV) 2006-10-25 Completed [facility] 00:00:00 [facility] DTAP 2006-10-25 Completed [facility] 00:00:00 [facility] Hepatitis A Adult 2006-10-25 Completed [facility] 00:00:00 [facility] Polio (IPV/OPV) 2006-10-25 Completed [facility] 00:00:00 [facility] DTAP 2006-10-25 Completed [facility] 00:00:00 [facility] Hepatitis A Adult 2006-10-25 Completed [facility] 00:00:00 [facility] Polio (IPV/OPV) 2006-10-25 Completed [facility] 00:00:00 [facility] DTAP 2006-10-25 Completed [facility] 00:00:00 [facility] Hepatitis A Adult 2006-10-25 Completed [facility] 00:00:00 [facility] Polio (IPV/OPV) 2006-10-25 Completed [facility] 00:00:00 [facility] DTAP 2006-10-25 Completed [facility] 00:00:00 [facility] Hepatitis A Adult 2006-10-25 Completed [facility] 00:00:00 [facility] Polio (IPV/OPV) 2006-10-25 Completed [facility] 00:00:00 [facility] DTAP 2006-10-25 Completed [facility] 00:00:00 [facility] Hepatitis A Adult 2006-10-25 Completed [facility] 00:00:00 [facility] Polio (IPV/OPV) 2006-10-25 Completed [facility] 00:00:00 [facility] DTAP 2006-10-25 Completed [facility] 00:00:00 [facility] Hepatitis A Adult 2006-10-25 Completed [facility] 00:00:00 [facility] Polio (IPV/OPV) 2006-10-25 Completed [facility] 00:00:00 [facility] DTAP 2006-10-25 Completed [facility] 00:00:00 [facility] Hepatitis A Adult 2006-10-25 Completed [facility] 00:00:00 [facility] Polio (IPV/OPV) 2006-10-25 Completed [facility] 00:00:00 [facility] DTAP 2006-10-25 Completed [facility] 00:00:00 [facility] Hepatitis A Adult 2006-10-25 Completed [facility] 00:00:00 [facility] Polio (IPV/OPV) 2006-10-25 Completed [facility] 00:00:00 [facility] DTAP 2006-10-25 Completed [facility] 00:00:00 [facility] Hepatitis A Adult 2006-10-25 Completed [facility] 00:00:00 [facility] Polio (IPV/OPV) 2006-10-25 Completed [facility] 00:00:00 [facility] DTAP 2006-10-25 Completed [facility] 00:00:00 [facility] Hepatitis A Adult 2006-10-25 Completed [facility] 00:00:00 [facility] Polio (IPV/OPV) 2006-10-25 Completed [facility] 00:00:00 [facility] DTAP 2006-10-25 Completed [facility] 00:00:00 [facility] Hepatitis A Adult 2006-10-25 Completed [facility] 00:00:00 [facility] Polio (IPV/OPV) 2006-10-25 Completed [facility] 00:00:00 [facility] DTAP 2006-10-25 Completed [facility] 00:00:00 [facility] Hepatitis A Adult 2006-10-25 Completed [facility] 00:00:00 [facility] Polio (IPV/OPV) 2006-10-25 Completed [facility] 00:00:00 [facility] DTaP, Unspecified 2006-10-25 Completed [facility] it[facility] of Formulation 00:00:00 [facility] HEPA,NOS 2006-10-25 Completed [facility] 00:00:00 [facility] IPV 2006-10-25 Completed [facility] 00:00:00 [facility] DTAP 2006-10-25 Completed [facility] 00:00:00 [facility] Hepatitis A Adult 2006-10-25 Completed [facility] 00:00:00 [facility] Polio (IPV/OPV) 2006-10-25 Completed [facility] 00:00:00 [facility] DTaP, Unspecified 2006-10-25 Completed [facility] Formulation 00:00:00 [facility] HEPA,NOS 2006-10-25 Completed [facility] 00:00:00 [facility] IPV 2006-10-25 Completed [facility] 00:00:00 [facility] DTAP 2006-10-25 Completed [facility] 00:00:00 [facility] Hepatitis A Adult 2006-10-25 Completed [facility] 00:00:00 [facility] Polio (IPV/OPV) 2006-10-25 Completed [facility] 00:00:00 [facility] DTaP, Unspecified 2006-10-25 Completed [facility] Formulation 00:00:00 [facility] HEPA,NOS 2006-10-25 Completed [facility] 00:00:00 [facility] IPV 2006-10-25 Completed [facility] 00:00:00 [facility] DTAP 2006-10-25 Completed [facility] 00:00:00 [facility] Hepatitis A Adult 2006-10-25 Completed [facility] 00:00:00 [facility] Polio (IPV/OPV) 2006-10-25 Completed [facility] 00:00:00 [facility] DTaP, Unspecified 2006-10-25 Completed [facility] Formulation 00:00:00 [facility] HEPA,NOS 2006-10-25 Completed [facility] 00:00:00 [facility] IPV 2006-10-25 Completed [facility] 00:00:00 [facility] DTAP 2006-10-25 Completed [facility] 00:00:00 [facility] Hepatitis A Adult 2006-10-25 Completed [facility] 00:00:00 [facility] Polio (IPV/OPV) 2006-10-25 Completed [facility] 00:00:00 [facility] DTaP, Unspecified 2006-10-25 Completed [facility] Formulation 00:00:00 [facility] HEPA,NOS 2006-10-25 Completed [facility] 00:00:00 [facility] IPV 2006-10-25 Completed [facility] 00:00:00 [facility] DTAP 2006-10-25 Completed [facility] 00:00:00 [facility] Hepatitis A Adult 2006-10-25 Completed [facility] 00:00:00 [facility] Polio (IPV/OPV) 2006-10-25 Completed [facility] 00:00:00 [facility] DTaP, Unspecified 2006-10-25 Completed [facility] Formulation 00:00:00 [facility] HEPA,NOS 2006-10-25 Completed [facility] 00:00:00 [facility] IPV 2006-10-25 Completed [facility] 00:00:00 [facility] DTAP 2006-10-25 Completed [facility] 00:00:00 [facility] Hepatitis A Adult 2006-10-25 Completed [facility] 00:00:00 [facility] Polio (IPV/OPV) 2006-10-25 Completed [facility] 00:00:00 [facility] DTaP, Unspecified 2006-10-25 Completed [facility] Formulation 00:00:00 [facility] HEPA,NOS 2006-10-25 Completed [facility] 00:00:00 [facility] IPV 2006-10-25 Completed [facility] 00:00:00 [facility] DTAP 2006-10-25 Completed [facility] 00:00:00 [facility] Hepatitis A Adult 2006-10-25 Completed Univers ity of 00:00:00 [facility] Polio (IPV/OPV) 2006-10-25 Completed [facility]00 [facility] DTaP, Unspecified 2006-10-25 Completed [facility] of Formulation 00:00:00 [facility] HEPA,NOS 2006-10-25 Completed [facility] 00:00:00 [facility] IPV 2006-10-25 Completed [facility] 00:00:00 [facility] DTAP 2006-10-25 Completed [facility] 00:00:00 [facility] Hepatitis A Adult 2006-10-25 Completed [facility] 00:00:00 [facility] Polio (IPV/OPV) 2006-10-25 Completed [facility] 00:00:00 [facility] DTaP, Unspecified 2006-10-25 Completed [facility] Formulation 00:00:00 [facility] HEPA,NOS 2006-10-25 Completed [facility] 00:00:00 [facility] IPV 2006-10-25 Completed [facility] 00:00:00 [facility] DTAP 2006-10-25 Completed [facility] 00:00:00 [facility] Hepatitis A Adult 2006-10-25 Completed [facility] 00:00:00 [facility] Polio (IPV/OPV) 2006-10-25 Completed [facility] 00:00:00 [facility] DTaP, Unspecified 2006-10-25 Completed [facility] Formulation 00:00:00 [facility] HEPA,NOS 2006-10-25 Completed [facility] 00:00:00 [facility] IPV 2006-10-25 Completed [facility] 00:00:00 [facility] DTAP 2006-10-25 Completed [facility] 00:00:00 [facility] Hepatitis A Adult 2006-10-25 Completed [facility] 00:00:00 [facility] Polio (IPV/OPV) 2006-10-25 Completed [facility] 00:00:00 [facility] DTaP, Unspecified 2006-10-25 Completed [facility] Formulation 00:00:00 [facility] HEPA,NOS 2006-10-25 Completed [facility] 00:00:00 [facility] IPV 2006-10-25 Completed [facility] 00:00:00 [facility] DTAP 2006-10-25 Completed [facility] 00:00:00 [facility] Hepatitis A Adult 2006-10-25 Completed [facility] 00:00:00 [facility] Polio (IPV/OPV) 2006-10-25 Completed [facility] 00:00:00 [facility] DTaP, Unspecified 2006-10-25 Completed [facility] Formulation 00:00:00 [facility] HEPA,NOS 2006-10-25 Completed [facility] 00:00:00 [facility] IPV 2006-10-25 Completed [facility] 00:00:00 [facility] DTAP 2006-10-25 Completed [facility] 00:00:00 [facility] Hepatitis A Adult 2006-10-25 Completed [facility] 00:00:00 [facility] Polio (IPV/OPV) 2006-10-25 Completed [facility] 00:00:00 [facility] DTaP, Unspecified 2006-10-25 Completed [facility] it[facility] Formulation 00:00:00 [facility] HEPA,NOS 2006-10-25 Completed [facility] 00:00:00 [facility] IPV 2006-10-25 Completed [facility] 00:00:00 [facility] DTAP 2006-10-25 Completed [facility] 00:00:00 [facility] Hepatitis A Adult 2006-10-25 Completed [facility] 00:00:00 [facility] Polio (IPV/OPV) 2006-10-25 Completed [facility] 00:00:00 [facility] DTaP, Unspecified 2006-10-25 Completed [facility] Formulation 00:00:00 [facility] HEPA,NOS 2006-10-25 Completed [facility] 00:00:00 [facility] IPV 2006-10-25 Completed [facility] 00:00:00 [facility] DTAP 2006-10-25 Completed [facility] 00:00:00 [facility] Hepatitis A Adult 2006-10-25 Completed [facility] it[facility] of 00:00:00 [facility] Polio (IPV/OPV) 2006-10-25 Completed [facility] 00:00:00 [facility] DTaP, Unspecified 2006-10-25 Completed [facility] it[facility] of Formulation 00:00:00 [facility] HEPA,NOS 2006-10-25 Completed [facility] 00:00:00 [facility] IPV 2006-10-25 Completed [facility] 00:00:00 [facility] DTAP 2006-10-25 Completed [facility] 00:00:00 [facility] Hepatitis A Adult 2006-10-25 Completed [facility] 00:00:00 [facility] Polio (IPV/OPV) 2006-10-25 Completed [facility] 00:00:00 [facility] DTaP, Unspecified 2006-10-25 Completed [facility] Formulation 00:00:00 [facility] HEPA,NOS 2006-10-25 Completed [facility] 00:00:00 [facility] IPV 2006-10-25 Completed [facility] 00:00:00 [facility] DTAP 2006-10-25 Completed [facility] 00:00:00 [facility] Hepatitis A Adult 2006-10-25 Completed [facility] 00:00:00 [facility] Polio (IPV/OPV) 2006-10-25 Completed [facility] 00:00:00 [facility] DTaP, Unspecified 2006-10-25 Completed [facility] Formulation 00:00:00 [facility] HEPA,NOS 2006-10-25 Completed [facility] 00:00:00 [facility] IPV 2006-10-25 Completed [facility] 00:00:00 [facility] DTAP 2006-10-25 Completed [facility] 00:00:00 [facility] Hepatitis A Adult 2006-10-25 Completed [facility] 00:00:00 [facility] Polio (IPV/OPV) 2006-10-25 Completed [facility] 00:00:00 [facility] DTaP, Unspecified 2006-10-25 Completed [facility] Formulation 00:00:00 [facility] HEPA,NOS 2006-10-25 Completed [facility] 00:00:00 [facility] IPV 2006-10-25 Completed [facility] 00:00:00 [facility] DTAP 2006-10-25 Completed [facility] 00:00:00 [facility] Hepatitis A Adult 2006-10-25 Completed [facility] 00:00:00 [facility] Polio (IPV/OPV) 2006-10-25 Completed [facility] 00:00:00 [facility] DTaP, Unspecified 2006-10-25 Completed [facility] Formulation 00:00:00 [facility] HEPA,NOS 2006-10-25 Completed [facility] 00:00:00 [facility] IPV 2006-10-25 Completed [facility] 00:00:00 [facility] DTAP 2006-10-25 Completed [facility] 00:00:00 [facility] Hepatitis A Adult 2006-10-25 Completed [facility] 00:00:00 [facility] Polio (IPV/OPV) 2006-10-25 Completed [facility] 00:00:00 [facility] DTaP, Unspecified 2006-10-25 Completed [facility] Formulation 00:00:00 [facility] HEPA,NOS 2006-10-25 Completed [facility] 00:00:00 [facility] IPV 2006-10-25 Completed [facility] 00:00:00 [facility] DTAP 2006-10-25 Completed [facility] 00:00:00 [facility] Hepatitis A Adult 2006-10-25 Completed [facility] 00:00:00 [facility] Polio (IPV/OPV) 2006-10-25 Completed [facility] 00:00:00 [facility] DTaP, Unspecified 2006-10-25 Completed [facility] Formulation 00:00:00 [facility] HEPA,NOS 2006-10-25 Completed [facility] 00:00:00 [facility] IPV 2006-10-25 Completed [facility] 00:00:00 [facility] DTAP 2006-10-25 Completed [facility] 00:00:00 [facility] Hepatitis A Adult 2006-10-25 Completed [facility] 00:00:00 [facility] Polio (IPV/OPV) 2006-10-25 Completed [facility] 00:00:00 [facility] DTaP, Unspecified 2006-10-25 Completed [facility] Formulation 00:00:00 [facility] HEPA,NOS 2006-10-25 Completed [facility] 00:00:00 [facility] IPV 2006-10-25 Completed [facility] 00:00:00 [facility] DTAP 2006-10-25 Completed [facility] 00:00:00 [facility] Hepatitis A Adult 2006-10-25 Completed [facility] 00:00:00 [facility] Polio (IPV/OPV) 2006-10-25 Completed [facility] 00:00:00 [facility] DTaP, Unspecified 2006-10-25 Completed [facility] Formulation 00:00:00 [facility] HEPA,NOS 2006-10-25 Completed [facility] 00:00:00 [facility] IPV 2006-10-25 Completed [facility] 00:00:00 [facility] DTAP 2006-10-25 Completed [facility] 00:00:00 [facility] Hepatitis A Adult 2006-10-25 Completed [facility] 00:00:00 [facility] Polio (IPV/OPV) 2006-10-25 Completed [facility] 00:00:00 [facility] DTaP, Unspecified 2006-10-25 Completed [facility] it[facility] of Formulation 00:00:00 [facility] HEPA,NOS 2006-10-25 Completed [facility] 00:00:00 [facility] IPV 2006-10-25 Completed [facility] 00:00:00 [facility] DTAP 2006-10-25 Completed [facility] 00:00:00 [facility] Hepatitis A Adult 2006-10-25 Completed [facility] 00:00:00 [facility] Polio (IPV/OPV) 2006-10-25 Completed [facility] 00:00:00 [facility] DTaP, Unspecified 2006-10-25 Completed [facility] it[facility] Formulation 00:00:00 [facility] HEPA,NOS 2006-10-25 Completed [facility] 00:00:00 [facility] IPV 2006-10-25 Completed [facility] 00:00:00 [facility] DTAP 2006-10-25 Completed [facility] 00:00:00 [facility] Hepatitis A Adult 2006-10-25 Completed [facility] 00:00:00 [facility] Polio (IPV/OPV) 2006-10-25 Completed [facility] 00:00:00 [facility] DTaP, Unspecified 2006-10-25 Completed [facility] it[facility] Formulation 00:00:00 [facility] HEPA,NOS 2006-10-25 Completed [facility] 00:00:00 [facility] IPV 2006-10-25 Completed [facility] 00:00:00 [facility] DTAP 2005-09-20 Completed [facility] 00:00:00 [facility] HIB 3 Dose Schedule 2005-09-20 Completed Unive rsity of 00:00:00 [facility] Hepatitis A Adult 2005-09-20 Completed [facility] 00:00:00 [facility] Hep B, Adol or Pedi 2005-09-20 Completed Unive rsity of Dosage 00:00:00 [facility] Pneumococcal 13 2005-09-20 Completed [facility] of Conjugate, PCV13 00:00:[address] [facility] dical (Prevnar 13) [place] Polio (IPV/OPV) 2005-09-20 Completed [facility] 00:00:00 [facility] DTAP 2005-09-20 Completed [facility] 00:00:00 [facility] HIB 3 Dose Schedule 2005-09-20 Completed Unive rsity of 00:00:00 [facility] Hepatitis A Adult 2005-09-20 Completed [facility] 00:00:00 [facility] Hep B, Adol or Pedi 2005-09-20 Completed Unive rsity of Dosage 00:00:00 [facility] Pneumococcal 13 2005-09-20 Completed [facility] Conjugate, PCV13 00:00:[address] [facility] dical (Prevnar 13) [place] Polio (IPV/OPV) 2005-09-20 Completed [facility] 00:00:00 [facility] DTAP 2005-09-20 Completed [facility] 00:00:00 [facility] HIB 3 Dose Schedule 2005-09-20 Completed Unive rsity of 00:00:00 [facility] Hepatitis A Adult 2005-09-20 Completed [facility] 00:00:00 [facility] Hep B, Adol or Pedi 2005-09-20 Completed Unive rsity of Dosage 00:00:00 [facility] Pneumococcal 13 2005-09-20 Completed [facility] of Conjugate, PCV13 00:00:[address] [facility] dical (Prevnar 13) [place] Polio (IPV/OPV) 2005-09-20 Completed [facility] 00:00:00 [facility] DTAP 2005-09-20 Completed [facility] 00:00:00 [facility] HIB 3 Dose Schedule 2005-09-20 Completed Unive rsity of 00:00:00 [facility] Hepatitis A Adult 2005-09-20 Completed [facility] 00:00:00 [facility] Hep B, Adol or Pedi 2005-09-20 Completed Unive rsity of Dosage 00:00:00 [facility] Pneumococcal 13 2005-09-20 Completed [facility] Conjugate, PCV13 00:00:[address] [facility] dical (Prevnar 13) [facility] Polio (IPV/OPV) 2005-09-20 Completed [facility] 00:00:00 [facility] DTAP 2005-09-20 Completed [facility] 00:00:00 [facility] HIB 3 Dose Schedule 2005-09-20 Completed Unive rsity of 00:00:00 [facility] Hepatitis A Adult 2005-09-20 Completed [facility] 00:00:00 [facility] Hep B, Adol or Pedi 2005-09-20 Completed Unive rsity of Dosage 00:00:00 [facility] Pneumococcal 13 2005-09-20 Completed [facility] Conjugate, PCV13 00:00:[address] [facility] dical (Prevnar 13) [facility] Polio (IPV/OPV) 2005-09-20 Completed [facility] 00:00:00 [facility] DTAP 2005-09-20 Completed [facility] 00:00:00 [facility] HIB 3 Dose Schedule 2005-09-20 Completed Unive rsity of 00:00:00 [facility] Hepatitis A Adult 2005-09-20 Completed [facility] 00:00:00 [facility] Hep B, Adol or Pedi 2005-09-20 Completed [facility]ive rsity of Dosage 00:00:00 [facility] Pneumococcal 13 2005-09-20 Completed [facility] Conjugate, PCV13 00:00:[address] [facility] dical (Prevnar 13) [facility] Polio (IPV/OPV) 2005-09-20 Completed [facility] 00:00:00 [facility] DTAP 2005-09-20 Completed [facility] 00:00:00 [facility] HIB 3 Dose Schedule 2005-09-20 Completed Unive rsity of 00:00:00 [facility] Hepatitis A Adult 2005-09-20 Completed [facility] 00:00:00 [facility] Hep B, Adol or Pedi 2005-09-20 Completed [facility]ive rsity of Dosage 00:00:00 [facility] Pneumococcal 13 2005-09-20 Completed [facility] Conjugate, PCV13 00:00:[address] [facility] dical (Prevnar 13) [facility] Polio (IPV/OPV) 2005-09-20 Completed [facility] 00:00:00 [facility] DTAP 2005-09-20 Completed [facility] 00:00:00 [facility] HIB 3 Dose Schedule 2005-09-20 Completed Unive rsity of 00:00:00 [facility] Hepatitis A Adult 2005-09-20 Completed [facility] 00:00:00 [facility] Hep B, Adol or Pedi 2005-09-20 Completed [facility]ive rsity of Dosage 00:00:00 [facility] Pneumococcal 13 2005-09-20 Completed [facility] Conjugate, PCV13 00:00:[address] [facility] dical (Prevnar 13) [facility] Polio (IPV/OPV) 2005-09-20 Completed [facility] 00:00:00 [facility] DTAP 2005-09-20 Completed [facility] 00:00:00 [facility] HIB 3 Dose Schedule 2005-09-20 Completed Unive rsity of 00:00:00 [facility] Hepatitis A Adult 2005-09-20 Completed [facility] 00:00:00 [facility] Hep B, Adol or Pedi 2005-09-20 Completed [facility]ive rsity of Dosage 00:00:00 [facility] Pneumococcal 13 2005-09-20 Completed [facility] of Conjugate, PCV13 00:00:[address] [facility] dical (Prevnar 13) [facility] Polio (IPV/OPV) 2005-09-20 Completed [facility] 00:00:00 [facility] DTAP 2005-09-20 Completed [facility] 00:00:00 [facility] HIB 3 Dose Schedule 2005-09-20 Completed Unive rsity of 00:00:00 [facility] Hepatitis A Adult 2005-09-20 Completed [facility] 00:00:00 [facility] Hep B, Adol or Pedi 2005-09-20 Completed [facility]ive rsity of Dosage 00:00:00 [facility] Pneumococcal 13 2005-09-20 Completed [facility] of Conjugate, PCV13 00:00:[address] [facility] dical (Prevnar 13) [facility] Polio (IPV/OPV) 2005-09-20 Completed [facility] 00:00:00 [facility] DTAP 2005-09-20 Completed [facility] 00:00:00 [facility] HIB 3 Dose Schedule 2005-09-20 Completed Unive rsity of 00:00:00 [facility] Hepatitis A Adult 2005-09-20 Completed [facility] 00:00:00 [facility] Hep B, Adol or Pedi 2005-09-20 Completed [facility]ive rsity of Dosage 00:00:00 [facility] Pneumococcal 13 2005-09-20 Completed [facility] of Conjugate, PCV13 00:00:[address] [facility] dical (Prevnar 13) [facility] Polio (IPV/OPV) 2005-09-20 Completed [facility] 00:00:00 [facility] DTAP 2005-09-20 Completed [facility] 00:00:00 [facility] HIB 3 Dose Schedule 2005-09-20 Completed [facility] rsity of 00:00:00 [facility] Hepatitis A Adult 2005-09-20 Completed [facility] 00:00:00 [facility] Hep B, Adol or Pedi 2005-09-20 Completed [facility]ive rsity of Dosage 00:00:00 [facility] Pneumococcal 13 2005-09-20 Completed [facility] of Conjugate, PCV13 00:00:[address] [facility] dical (Prevnar 13) [facility] Polio (IPV/OPV) 2005-09-20 Completed [facility] 00:00:00 [facility] DTAP 2005-09-20 Completed [facility] 00:00:00 [facility] HIB 3 Dose Schedule 2005-09-20 Completed [facility] rsity of 00:00:00 [facility] Hepatitis A Adult 2005-09-20 Completed [facility] 00:00:00 [facility] Hep B, Adol or Pedi 2005-09-20 Completed [facility]ive rsity of Dosage 00:00:00 [facility] Pneumococcal 13 2005-09-20 Completed [facility] of Conjugate, PCV13 00:00:[address] [facility] dical (Prevnar 13) [facility] Polio (IPV/OPV) 2005-09-20 Completed [facility] 00:00:00 [facility] DTAP 2005-09-20 Completed [facility] 00:00:00 [facility] HIB 3 Dose Schedule 2005-09-20 Completed [facility]ive rsity of 00:00:00 [facility] Hepatitis A Adult 2005-09-20 Completed [facility] 00:00:00 [facility] Hep B, Adol or Pedi 2005-09-20 Completed [facility]ive rsity of Dosage 00:00:00 [facility] Pneumococcal 13 2005-09-20 Completed [facility] Conjugate, PCV13 00:00:00 [place] [facility] dical (Prevnar 13) [facility] Polio (IPV/OPV) 2005-09-20 Completed [facility] 00:00:00 [facility] DTAP 2005-09-20 Completed [facility] 00:00:00 [facility] HIB 3 Dose Schedule 2005-09-20 Completed [facility] rsity of 00:00:00 [facility] Hepatitis A Adult 2005-09-20 Completed [facility] 00:00:00 [facility] Hep B, Adol or Pedi 2005-09-20 Completed [facility]ive rsity of Dosage 00:00:00 [facility] Pneumococcal 13 2005-09-20 Completed [facility] of Conjugate, PCV13 00:00:[address] [facility] dical (Prevnar 13) [facility] Polio (IPV/OPV) 2005-09-20 Completed [facility] 00:00:00 [facility] DTAP 2005-09-20 Completed [facility] 00:00:00 [facility] HIB 3 Dose Schedule 2005-09-20 Completed [facility] rsity of 00:00:00 [facility] Hepatitis A Adult 2005-09-20 Completed [facility] 00:00:00 [facility] Hep B, Adol or Pedi 2005-09-20 Completed [facility] rsity of Dosage 00:00:00 [facility] Pneumococcal 13 2005-09-20 Completed [facility] Conjugate, PCV13 00:00:[address] [facility] dical (Prevnar 13) [facility] Polio (IPV/OPV) 2005-09-20 Completed [facility] 00:00:00 [facility] DTAP 2005-09-20 Completed [facility] 00:00:00 [facility] HIB 3 Dose Schedule 2005-09-20 Completed [facility] rsity of 00:00:00 [facility] Hepatitis A Adult 2005-09-20 Completed [facility] 00:00:00 [facility] Hep B, Adol or Pedi 2005-09-20 Completed [facility] rsity of Dosage 00:00:00 [facility] Pneumococcal 13 2005-09-20 Completed [facility] Conjugate, PCV13 00:00:[address] [facility] dical (Prevnar 13) [facility] Polio (IPV/OPV) 2005-09-20 Completed [facility] 00:00:00 [facility] DTAP 2005-09-20 Completed [facility] 00:00:00 [facility] HIB 3 Dose Schedule 2005-09-20 Completed [facility] rs[facility] of 00:00:00 [facility] Hepatitis A Adult 2005-09-20 Completed [facility] 00:00:00 [facility] Hep B, Adol or Pedi 2005-09-20 Completed [facility] rsity of Dosage 00:00:00 [facility] Pneumococcal 13 2005-09-20 Completed [facility] Conjugate, PCV13 00:00:[address] [facility] dical (Prevnar 13) [facility] Polio (IPV/OPV) 2005-09-20 Completed [facility] 00:00:00 [facility] DTAP 2005-09-20 Completed [facility] 00:00:00 [facility] HIB 3 Dose Schedule 2005-09-20 Completed [facility] rs[facility] of 00:00:00 [facility] Hepatitis A Adult 2005-09-20 Completed [facility] 00:00:00 [facility] Hep B, Adol or Pedi 2005-09-20 Completed [facility] rs[facility] of Dosage 00:00:00 [facility] Pneumococcal 13 2005-09-20 Completed [facility] of Conjugate, PCV13 00:00:[address] [facility] dical (Prevnar 13) [facility] Polio (IPV/OPV) 2005-09-20 Completed [facility] 00:00:00 [facility] DTAP 2005-09-20 Completed [facility] 00:00:00 [facility] HIB 3 Dose Schedule 2005-09-20 Completed [facility] rs[facility] of 00:00:00 [facility] Hepatitis A Adult 2005-09-20 Completed [facility] 00:00:00 [facility] Hep B, Adol or Pedi 2005-09-20 Completed [facility] rs[facility] of Dosage 00:00:00 [facility] Pneumococcal 13 2005-09-20 Completed [facility] Conjugate, PCV13 00:00:[address] [facility] dical (Prevnar 13) [facility] Polio (IPV/OPV) 2005-09-20 Completed [facility] 00:00:00 [facility] DTAP 2005-09-20 Completed [facility] 00:00:00 [facility] HIB 3 Dose Schedule 2005-09-20 Completed [facility] rs[facility] of 00:00:00 [facility] Hepatitis A Adult 2005-09-20 Completed [facility] 00:00:00 [facility] Hep B, Adol or Pedi 2005-09-20 Completed [facility] rs[facility] of Dosage 00:00:00 [facility] Pneumococcal 13 2005-09-20 Completed [facility] Conjugate, PCV13 00:00:[address] [facility] dical (Prevnar 13) [facility] Polio (IPV/OPV) 2005-09-20 Completed [facility] 00:00:00 [facility] DTAP 2005-09-20 Completed [facility] 00:00:00 [facility] HIB 3 Dose Schedule 2005-09-20 Completed [facility] rs[facility] of 00:00:00 [facility] Hepatitis A Adult 2005-09-20 Completed [facility] 00:00:00 [facility] Hep B, Adol or Pedi 2005-09-20 Completed [facility] rs[facility] of Dosage 00:00:00 [facility] Pneumococcal 13 2005-09-20 Completed [facility] Conjugate, PCV13 00:00:[address] [facility] dical (Prevnar 13) [facility] Polio (IPV/OPV) 2005-09-20 Completed [facility] 00:00:00 [facility] DTAP 2005-09-20 Completed [facility] 00:00:00 [facility] HIB 3 Dose Schedule 2005-09-20 Completed [facility] rs[facility] of 00:00:00 [facility] Hepatitis A Adult 2005-09-20 Completed [facility] 00:00:00 [facility] Hep B, Adol or Pedi 2005-09-20 Completed [facility] rs[facility] of Dosage 00:00:00 [facility] Pneumococcal 13 2005-09-20 Completed [facility] Conjugate, PCV13 00:00:[address] [facility] dical (Prevnar 13) [facility] Polio (IPV/OPV) 2005-09-20 Completed [facility] 00:00:00 [facility] DTAP 2005-09-20 Completed [facility] 00:00:00 [facility] HIB 3 Dose Schedule 2005-09-20 Completed [facility] rs[facility] of 00:00:00 [facility] Hepatitis A Adult 2005-09-20 Completed [facility] 00:00:00 [facility] Hep B, Adol or Pedi 2005-09-20 Completed [facility] rs[facility] of Dosage 00:00:00 [facility] Pneumococcal 13 2005-09-20 Completed [facility] Conjugate, PCV13 00:00:[address] [facility] dical (Prevnar 13) Branch Polio (IPV/OPV) 2005-09-20 Completed [facility]00 [facility] DTAP 2005-09-20 Completed [facility] 00:00:00 [facility] HIB 3 Dose Schedule 2005-09-20 Completed [facility] 00:00:00 [facility] Hepatitis A Adult 2005-09-20 Completed [facility] 00:00:00 [facility] Hep B, Adol or Pedi 2005-09-20 Completed [facility] Dosage 00:00:00 [facility] Pneumococcal 13 2005-09-20 Completed [facility] Conjugate, PCV13 00:00:[address] [facility] dical (Prevnar 13) Branch Polio (IPV/OPV) 2005-09-20 Completed [facility] 00:00:00 [facility] DTAP 2005-09-20 Completed [facility] 00:00:00 [facility] HIB 3 Dose Schedule 2005-09-20 Completed [facility] 00:00:00 [facility] Hepatitis A Adult 2005-09-20 Completed [facility] 00:00:00 [facility] Hep B, Adol or Pedi 2005-09-20 Completed [facility] Dosage 00:00:00 [facility] Pneumococcal 13 2005-09-20 Completed [facility] Conjugate, PCV13 00:00:[address] [facility] dical (Prevnar 13) Branch Polio (IPV/OPV) 2005-09-20 Completed [facility] 00:00:00 [facility] DTAP 2005-09-20 Completed [facility] 00:00:00 [facility] HIB 3 Dose Schedule 2005-09-20 Completed [facility] 00:00:00 [facility] Hepatitis A Adult 2005-09-20 Completed [facility] 00:00:00 [facility] Hep B, Adol or Pedi 2005-09-20 Completed [facility] Dosage 00:00:00 [facility] Pneumococcal 13 2005-09-20 Completed [facility] Conjugate, PCV13 00:00:[address] [facility] dical (Prevnar 13) Branch Polio (IPV/OPV) 2005-09-20 Completed [facility] 00:00:00 [facility] DTAP 2005-09-20 Completed [facility] 00:00:00 [facility] HIB 3 Dose Schedule 2005-09-20 Completed [facility] 00:00:00 [facility] Hepatitis A Adult 2005-09-20 Completed [facility] 00:00:00 [facility] Hep B, Adol or Pedi 2005-09-20 Completed [facility] Dosage 00:00:00 [facility] Pneumococcal 13 2005-09-20 Completed [facility] Conjugate, PCV13 00:00:[address] [facility] dical (Prevnar 13) Branch Polio (IPV/OPV) 2005-09-20 Completed [facility] 00:00:00 [facility] DTAP 2005-09-20 Completed [facility] 00:00:00 [facility] HIB 3 Dose Schedule 2005-09-20 Completed [facility] 00:00:00 [facility] Hepatitis A Adult 2005-09-20 Completed [facility] 00:00:00 [facility] Hep B, Adol or Pedi 2005-09-20 Completed [facility] of Dosage 00:00:00 [facility] Pneumococcal 13 2005-09-20 Completed [facility] Conjugate, PCV13 00:00:[address] [facility] dical (Prevnar 13) Branch Polio (IPV/OPV) 2005-09-20 Completed [facility] 00:00:00 [facility] DTAP 2005-09-20 Completed [facility] 00:00:00 [facility] HIB 3 Dose Schedule 2005-09-20 Completed [facility] 00:00:00 [facility] Hepatitis A Adult 2005-09-20 Completed [facility] 00:00:00 [facility] Hep B, Adol or Pedi 2005-09-20 Completed [facility] Dosage 00:00:00 [facility] Pneumococcal 13 2005-09-20 Completed [facility] Conjugate, PCV13 00:00:[address] [facility] dical (Prevnar 13) Branch Polio (IPV/OPV) 2005-09-20 Completed [facility] 00:00:00 [facility] DTAP 2005-09-20 Completed [facility] 00:00:00 [facility] HIB 3 Dose Schedule 2005-09-20 Completed [facility] 00:00:00 [facility] Hepatitis A Adult 2005-09-20 Completed [facility] 00:00:00 [facility] Hep B, Adol or Pedi 2005-09-20 Completed [facility] Dosage 00:00:00 [facility] Pneumococcal 13 2005-09-20 Completed [facility] Conjugate, PCV13 00:00:00 [place] [facility] (Prevnar 13) Branch Polio (IPV/OPV) 2005-09-20 Completed [facility] 00:00:00 [facility] DTAP 2005-09-20 Completed [facility] 00:00:00 [facility] HIB 3 Dose Schedule 2005-09-20 Completed [facility] 00:00:00 [facility] Hepatitis A Adult 2005-09-20 Completed [facility] 00:00:00 [facility] Hep B, Adol or Pedi 2005-09-20 Completed [facility] of Dosage 00:00:00 [facility] Pneumococcal 13 2005-09-20 Completed [facility] Conjugate, PCV13 00:00:[address] [facility] dical (Prevnar 13) Branch Polio (IPV/OPV) 2005-09-20 Completed [facility] 00:00:00 [facility] DTAP 2005-09-20 Completed [facility] 00:00:00 [facility] HIB 3 Dose Schedule 2005-09-20 Completed [facility] 00:00:00 [facility] Hepatitis A Adult 2005-09-20 Completed [facility] 00:00:00 [facility] Hep B, Adol or Pedi 2005-09-20 Completed [facility] Dosage 00:00:00 [facility] Pneumococcal 13 2005-09-20 Completed [facility] Conjugate, PCV13 00:00:[address] [facility] dical (Prevnar 13) Branch Polio (IPV/OPV) 2005-09-20 Completed [facility] 00:00:00 [facility] DTAP 2005-09-20 Completed [facility] 00:00:00 [facility] HIB 3 Dose Schedule 2005-09-20 Completed [facility] 00:00:00 [facility] Hepatitis A Adult 2005-09-20 Completed [facility] 00:00:00 [facility] Hep B, Adol or Pedi 2005-09-20 Completed [facility] of Dosage 00:00:00 [facility] Pneumococcal 13 2005-09-20 Completed [facility] Conjugate, PCV13 00:00:[address] [facility] dical (Prevnar 13) Branch Polio (IPV/OPV) 2005-09-20 Completed [facility] 00:00:00 [facility] DTAP 2005-09-20 Completed [facility] 00:00:00 [facility] HIB 3 Dose Schedule 2005-09-20 Completed [facility] 00:00:00 [facility] Hepatitis A Adult 2005-09-20 Completed [facility] 00:00:00 [facility] Hep B, Adol or Pedi 2005-09-20 Completed [facility] Dosage 00:00:00 [facility] Pneumococcal 13 2005-09-20 Completed [facility] Conjugate, PCV13 00:00:[address] [facility] dical (Prevnar 13) Branch Polio (IPV/OPV) 2005-09-20 Completed [facility] 00:00:00 [facility] DTAP 2005-09-20 Completed [facility] 00:00:00 [facility] HIB 3 Dose Schedule 2005-09-20 Completed [facility] 00:00:00 [facility] Hepatitis A Adult 2005-09-20 Completed [facility] 00:00:00 [facility] Hep B, Adol or Pedi 2005-09-20 Completed [facility] of Dosage 00:00:00 [facility] Pneumococcal 13 2005-09-20 Completed [facility] Conjugate, PCV13 00:00:[address] [facility] dical (Prevnar 13) Branch Polio (IPV/OPV) 2005-09-20 Completed [facility] 00:00:00 [facility] DTAP 2005-09-20 Completed [facility] 00:00:00 [facility] HIB 3 Dose Schedule 2005-09-20 Completed [facility] 00:00:00 [facility] Hepatitis A Adult 2005-09-20 Completed [facility] 00:00:00 [facility] Hep B, Adol or Pedi 2005-09-20 Completed [facility] Dosage 00:00:00 [facility] Pneumococcal 13 2005-09-20 Completed [facility] Conjugate, PCV13 00:00:[address] [facility] dical (Prevnar 13) Branch Polio (IPV/OPV) 2005-09-20 Completed [facility] 00:00:00 [facility] DTAP 2005-09-20 Completed [facility] 00:00:00 [facility] HIB 3 Dose Schedule 2005-09-20 Completed [facility] 00:00:00 [facility] Hepatitis A Adult 2005-09-20 Completed [facility] 00:00:00 [facility] Hep B, Adol or Pedi 2005-09-20 Completed [facility] of Dosage 00:00:00 [facility] Pneumococcal 13 2005-09-20 Completed [facility] Conjugate, PCV13 00:00:00 [place] [facility] (Prevnar 13) Branch Polio (IPV/OPV) 2005-09-20 Completed [facility] 00:00:00 [facility] DTaP, Unspecified 2005-09-20 Completed [facility] Formulation 00:00:00 [facility] HEPATITIS A 2005-09-20 Completed [facility] 00:00:00 [facility] HIB 4 Dose Schedule 2005-09-20 Completed [facility] rs[facility] of 00:00:00 [facility] Pneumococcal 7 2005-09-20 Completed [facility] of Conjugate, PCV7 00:00:00 [place] [facility] (Prevnar7) Branch IPV 2005-09-20 Completed [facility] 00:00:00 [facility] DTAP 2005-09-20 Completed [facility] 00:00:00 [facility] HIB 3 Dose Schedule 2005-09-20 Completed [facility] 00:00:00 [facility] Hepatitis A Adult 2005-09-20 Completed [facility] 00:00:00 [facility] Hep B, Adol or Pedi 2005-09-20 Completed [facility] of Dosage 00:00:00 [facility] Pneumococcal 13 2005-09-20 Completed [facility] Conjugate, PCV13 00:00:[address] [facility] dical (Prevnar 13) Branch Polio (IPV/OPV) 2005-09-20 Completed [facility] 00:00:00 [facility] DTaP, Unspecified 2005-09-20 Completed [facility] Formulation 00:00:00 [facility] HEPATITIS A 2005-09-20 Completed [facility] 00:00:00 [facility] HIB 4 Dose Schedule 2005-09-20 Completed [facility] rs[facility] of 00:00:00 [facility] Pneumococcal 7 2005-09-20 Completed [facility] Conjugate, PCV7 00:00:00 [place] [facility] (Prevnar7) Branch IPV 2005-09-20 Completed [facility] 00:00:00 [facility] DTAP 2005-09-20 Completed [facility] 00:00:00 [facility] HIB 3 Dose Schedule 2005-09-20 Completed [facility] 00:00:00 [facility] Hepatitis A Adult 2005-09-20 Completed [facility] 00:00:00 [facility] Hep B, Adol or Pedi 2005-09-20 Completed [facility] of Dosage 00:00:00 [facility] Pneumococcal 13 2005-09-20 Completed [facility] Conjugate, PCV13 00:00:[address] [facility] dical (Prevnar 13) Branch Polio (IPV/OPV) 2005-09-20 Completed [facility] 00:00:00 [facility] DTaP, Unspecified 2005-09-20 Completed [facility] Formulation 00:00:00 [facility] HEPATITIS A 2005-09-20 Completed [facility] 00:00:00 [facility] HIB 4 Dose Schedule 2005-09-20 Completed [facility] rs[facility] of 00:00:00 [facility] Pneumococcal 7 2005-09-20 Completed [facility] of Conjugate, PCV7 00:00:00 [facility] ical (Prevnar7) Branch IPV 2005-09-20 Completed [facility] 00:00:00 [facility] DTAP 2005-09-20 Completed [facility] 00:00:00 [facility] HIB 3 Dose Schedule 2005-09-20 Completed [facility] 00:00:00 [facility] Hepatitis A Adult 2005-09-20 Completed [facility] 00:00:00 [facility] Hep B, Adol or Pedi 2005-09-20 Completed [facility] rs[facility] of Dosage 00:00:00 [facility] Pneumococcal 13 2005-09-20 Completed [facility] Conjugate, PCV13 00:00:[address] [facility] dical (Prevnar 13) Branch Polio (IPV/OPV) 2005-09-20 Completed [facility] 00:00:00 [facility] DTaP, Unspecified 2005-09-20 Completed [facility] Formulation 00:00:00 [facility] HEPATITIS A 2005-09-20 Completed [facility] 00:00:00 [facility] HIB 4 Dose Schedule 2005-09-20 Completed [facility] rs[facility] of 00:00:00 [facility] Pneumococcal 7 2005-09-20 Completed [facility] Conjugate, PCV7 00:00:00 [place] [facility] (Prevnar7) Branch IPV 2005-09-20 Completed [facility] 00:00:00 [facility] DTAP 2005-09-20 Completed [facility] 00:00:00 [facility] HIB 3 Dose Schedule 2005-09-20 Completed [facility] rs[facility] of 00:00:00 [facility] Hepatitis A Adult 2005-09-20 Completed [facility] 00:00:00 [facility] Hep B, Adol or Pedi 2005-09-20 Completed [facility] rs[facility] of Dosage 00:00:00 [facility] Pneumococcal 13 2005-09-20 Completed [facility] Conjugate, PCV13 00:00:[address] [facility] dical (Prevnar 13) Branch Polio (IPV/OPV) 2005-09-20 Completed [facility] 00:00:00 [facility] DTaP, Unspecified 2005-09-20 Completed [facility] Formulation 00:00:00 [facility] HEPATITIS A 2005-09-20 Completed [facility] 00:00:00 [facility] HIB 4 Dose Schedule 2005-09-20 Completed [facility] rs[facility] of 00:00:00 [facility] Pneumococcal 7 2005-09-20 Completed [facility] of Conjugate, PCV7 00:00:00 [facility] ical (Prevnar7) Branch IPV 2005-09-20 Completed [facility] 00:00:00 [facility] DTAP 2005-09-20 Completed [facility] 00:00:00 [facility] HIB 3 Dose Schedule 2005-09-20 Completed [facility] rs[facility] of 00:00:00 [facility] Hepatitis A Adult 2005-09-20 Completed [facility] 00:00:00 [facility] Hep B, Adol or Pedi 2005-09-20 Completed [facility] rs[facility] of Dosage 00:00:00 [facility] Pneumococcal 13 2005-09-20 Completed [facility] Conjugate, PCV13 00:00:[address] [facility] dical (Prevnar 13) Branch Polio (IPV/OPV) 2005-09-20 Completed [facility] 00:00:00 [facility] DTaP, Unspecified 2005-09-20 Completed [facility] Formulation 00:00:00 [facility] HEPATITIS A 2005-09-20 Completed [facility] 00:00:00 [facility] HIB 4 Dose Schedule 2005-09-20 Completed [facility] rs[facility] of 00:00:00 [facility] Pneumococcal 7 2005-09-20 Completed [facility] Conjugate, PCV7 00:00:00 [place] [facility] (Prevnar7) Branch IPV 2005-09-20 Completed [facility] 00:00:00 [facility] DTAP 2005-09-20 Completed [facility] 00:00:00 [facility] HIB 3 Dose Schedule 2005-09-20 Completed [facility] rs[facility] of 00:00:00 [facility] Hepatitis A Adult 2005-09-20 Completed [facility] 00:00:00 [facility] Hep B, Adol or Pedi 2005-09-20 Completed [facility] rs[facility] of Dosage 00:00:00 [facility] Pneumococcal 13 2005-09-20 Completed [facility] of Conjugate, PCV13 00:00:[address] [facility] dical (Prevnar 13) Branch Polio (IPV/OPV) 2005-09-20 Completed [facility] 00:00:00 [facility] DTaP, Unspecified 2005-09-20 Completed [facility] Formulation 00:00:00 [facility] HEPATITIS A 2005-09-20 Completed [facility] 00:00:00 [facility] HIB 4 Dose Schedule 2005-09-20 Completed [facility] rs[facility] of 00:00:00 [facility] Pneumococcal 7 2005-09-20 Completed [facility] of Conjugate, PCV7 00:00:00 [facility] ical (Prevnar7) Branch IPV 2005-09-20 Completed [facility] 00:00:00 [facility] DTAP 2005-09-20 Completed [facility] 00:00:00 [facility] HIB 3 Dose Schedule 2005-09-20 Completed [facility] rs[facility] of 00:00:00 [facility] Hepatitis A Adult 2005-09-20 Completed [facility] 00:00:00 [facility] Hep B, Adol or Pedi 2005-09-20 Completed [facility] rs[facility] of Dosage 00:00:00 [facility] Pneumococcal 13 2005-09-20 Completed [facility] Conjugate, PCV13 00:00:[address] [facility] dical (Prevnar 13) Branch Polio (IPV/OPV) 2005-09-20 Completed [facility] 00:00:00 [facility] DTaP, Unspecified 2005-09-20 Completed [facility] Formulation 00:00:00 [facility] HEPATITIS A 2005-09-20 Completed [facility] 00:00:00 [facility] HIB 4 Dose Schedule 2005-09-20 Completed [facility] rs[facility] of 00:00:00 [facility] Pneumococcal 7 2005-09-20 Completed [facility] Conjugate, PCV7 00:00:00 [place] [facility] (Prevnar7) Branch IPV 2005-09-20 Completed [facility] 00:00:00 [facility] DTAP 2005-09-20 Completed [facility] 00:00:00 [facility] HIB 3 Dose Schedule 2005-09-20 Completed [facility] rs[facility] of 00:00:00 [facility] Hepatitis A Adult 2005-09-20 Completed [facility] 00:00:00 [facility] Hep B, Adol or Pedi 2005-09-20 Completed [facility] rs[facility] of Dosage 00:00:00 [facility] Pneumococcal 13 2005-09-20 Completed [facility] of Conjugate, PCV13 00:00:[address] [facility] dical (Prevnar 13) Branch Polio (IPV/OPV) 2005-09-20 Completed [facility] 00:00:00 [facility] DTaP, Unspecified 2005-09-20 Completed [facility] Formulation 00:00:00 [facility] HEPATITIS A 2005-09-20 Completed [facility] 00:00:00 [facility] HIB 4 Dose Schedule 2005-09-20 Completed [facility] rs[facility] of 00:00:00 [facility] Pneumococcal 7 2005-09-20 Completed [facility] of Conjugate, PCV7 00:00:00 [facility] ical (Prevnar7) Branch IPV 2005-09-20 Completed [facility] 00:00:00 [facility] DTAP 2005-09-20 Completed [facility] 00:00:00 [facility] HIB 3 Dose Schedule 2005-09-20 Completed [facility] rs[facility] 00:00:00 [facility] Hepatitis A Adult 2005-09-20 Completed [facility] 00:00:00 [facility] Hep B, Adol or Pedi 2005-09-20 Completed [facility] rsity of Dosage 00:00:00 [facility] Pneumococcal 13 2005-09-20 Completed [facility] of Conjugate, PCV13 00:00:[address] [facility] dical (Prevnar 13) Branch Polio (IPV/OPV) 2005-09-20 Completed [facility] 00:00:00 [facility] DTaP, Unspecified 2005-09-20 Completed [facility] Formulation 00:00:00 [facility] HEPATITIS A 2005-09-20 Completed [facility] 00:00:00 [facility] HIB 4 Dose Schedule 2005-09-20 Completed [facility] rs[facility] of 00:00:00 [facility] Pneumococcal 7 2005-09-20 Completed [facility] of Conjugate, PCV7 00:00:00 [place] [facility] (Prevnar7) Branch IPV 2005-09-20 Completed [facility] 00:00:00 [facility] DTAP 2005-09-20 Completed [facility] 00:00:00 [facility] HIB 3 Dose Schedule 2005-09-20 Completed [facility] 00:00:00 [facility] Hepatitis A Adult 2005-09-20 Completed [facility] 00:00:00 [facility] Hep B, Adol or Pedi 2005-09-20 Completed [facility] rs[facility] of Dosage 00:00:00 [facility] Pneumococcal 13 2005-09-20 Completed [facility] of Conjugate, PCV13 00:00:[address] [facility] dical (Prevnar 13) Branch Polio (IPV/OPV) 2005-09-20 Completed [facility] 00:00:00 [facility] DTaP, Unspecified 2005-09-20 Completed [facility] Formulation 00:00:00 [facility] HEPATITIS A 2005-09-20 Completed [facility] 00:00:00 [facility] HIB 4 Dose Schedule 2005-09-20 Completed [facility] rs[facility] of 00:00:00 [facility] Pneumococcal 7 2005-09-20 Completed [facility] of Conjugate, PCV7 00:00:00 [facility] ical (Prevnar7) Branch IPV 2005-09-20 Completed [facility] 00:00:00 [facility] DTAP 2005-09-20 Completed [facility] 00:00:00 [facility] HIB 3 Dose Schedule 2005-09-20 Completed [facility] rs[facility] 00:00:00 [facility] Hepatitis A Adult 2005-09-20 Completed [facility] 00:00:00 [facility] Hep B, Adol or Pedi 2005-09-20 Completed [facility] rs[facility] of Dosage 00:00:00 [facility] Pneumococcal 13 2005-09-20 Completed [facility] of Conjugate, PCV13 00:00:[address] [facility] dical (Prevnar 13) Branch Polio (IPV/OPV) 2005-09-20 Completed [facility] 00:00:00 [facility] DTaP, Unspecified 2005-09-20 Completed [facility] Formulation 00:00:00 [facility] HEPATITIS A 2005-09-20 Completed [facility] 00:00:00 [facility] HIB 4 Dose Schedule 2005-09-20 Completed [facility] rs[facility] of 00:00:00 [facility] Pneumococcal 7 2005-09-20 Completed [facility] of Conjugate, PCV7 00:00:00 [place] [facility] (Prevnar7) Branch IPV 2005-09-20 Completed [facility] 00:00:00 [facility] DTAP 2005-09-20 Completed [facility] 00:00:00 [facility] HIB 3 Dose Schedule 2005-09-20 Completed [facility] 00:00:00 [facility] Hepatitis A Adult 2005-09-20 Completed [facility] 00:00:00 [facility] Hep B, Adol or Pedi 2005-09-20 Completed [facility] rs[facility] of Dosage 00:00:00 [facility] Pneumococcal 13 2005-09-20 Completed [facility] of Conjugate, PCV13 00:00:[address] [facility] dical (Prevnar 13) Branch Polio (IPV/OPV) 2005-09-20 Completed [facility] 00:00:00 [facility] DTaP, Unspecified 2005-09-20 Completed [facility] Formulation 00:00:00 [facility] HEPATITIS A 2005-09-20 Completed [facility] 00:00:00 [facility] HIB 4 Dose Schedule 2005-09-20 Completed [facility] rs[facility] of 00:00:00 [facility] Pneumococcal 7 2005-09-20 Completed [facility] of Conjugate, PCV7 00:00:00 [facility] ical (Prevnar7) Branch IPV 2005-09-20 Completed [facility] 00:00:00 [facility] DTAP 2005-09-20 Completed [facility] 00:00:00 [facility] HIB 3 Dose Schedule 2005-09-20 Completed [facility] 00:00:00 [facility] Hepatitis A Adult 2005-09-20 Completed [facility] 00:00:00 [facility] Hep B, Adol or Pedi 2005-09-20 Completed [facility] rs[facility] of Dosage 00:00:00 [facility] Pneumococcal 13 2005-09-20 Completed [facility] of Conjugate, PCV13 00:00:[address] [facility] dical (Prevnar 13) Branch Polio (IPV/OPV) 2005-09-20 Completed [facility] 00:00:00 [facility] DTaP, Unspecified 2005-09-20 Completed [facility] Formulation 00:00:00 [facility] HEPATITIS A 2005-09-20 Completed [facility] 00:00:00 [facility] HIB 4 Dose Schedule 2005-09-20 Completed [facility] 00:00:00 [facility] Pneumococcal 7 2005-09-20 Completed [facility] Conjugate, PCV7 00:00:00 [place] [facility] (Prevnar7) Branch IPV 2005-09-20 Completed [facility] 00:00:00 [facility] DTAP 2005-09-20 Completed [facility] 00:00:00 [facility] HIB 3 Dose Schedule 2005-09-20 Completed [facility] 00:00:00 [facility] Hepatitis A Adult 2005-09-20 Completed [facility] 00:00:00 [facility] Hep B, Adol or Pedi 2005-09-20 Completed [facility] of Dosage 00:00:00 [facility] Pneumococcal 13 2005-09-20 Completed [facility] of Conjugate, PCV13 00:00:[address] [facility] dical (Prevnar 13) Branch Polio (IPV/OPV) 2005-09-20 Completed [facility] 00:00:00 [facility] DTaP, Unspecified 2005-09-20 Completed [facility] Formulation 00:00:00 [facility] HEPATITIS A 2005-09-20 Completed [facility] 00:00:00 [facility] HIB 4 Dose Schedule 2005-09-20 Completed [facility] 00:00:00 [facility] Pneumococcal 7 2005-09-20 Completed [facility] Conjugate, PCV7 00:00:00 [place] [facility] (Prevnar7) Branch IPV 2005-09-20 Completed [facility] 00:00:00 [facility] DTAP 2005-09-20 Completed [facility] 00:00:00 [facility] HIB 3 Dose Schedule 2005-09-20 Completed [facility] 00:00:00 [facility] Hepatitis A Adult 2005-09-20 Completed [facility] 00:00:00 [facility] Hep B, Adol or Pedi 2005-09-20 Completed [facility] Dosage 00:00:00 [facility] Pneumococcal 13 2005-09-20 Completed [facility]it y of Conjugate, PCV13 00:00:[address] [facility] dical (Prevnar 13) Branch Polio (IPV/OPV) 2005-09-20 Completed [facility] 00:00:00 [facility] DTaP, Unspecified 2005-09-20 Completed [facility] Formulation 00:00:00 [facility] HEPATITIS A 2005-09-20 Completed [facility] 00:00:00 [facility] HIB 4 Dose Schedule 2005-09-20 Completed [facility] of 00:00:00 [facility] Pneumococcal 7 2005-09-20 Completed [facility] of Conjugate, PCV7 00:00:00 [place] [facility] (Prevnar7) [facility] IPV 2005-09-20 Completed [facility] 00:00:00 [facility] DTAP 2005-09-20 Completed [facility] 00:00:00 [facility] HIB 3 Dose Schedule 2005-09-20 Completed [facility] of 00:00:00 [facility] Hepatitis A Adult 2005-09-20 Completed [facility] 00:00:00 [facility] Hep B, Adol or Pedi 2005-09-20 Completed [facility] Dosage 00:00:00 [facility] Pneumococcal 13 2005-09-20 Completed [facility] of Conjugate, PCV13 00:00:[address] [facility] dical (Prevnar 13) Branch Polio (IPV/OPV) 2005-09-20 Completed [facility] 00:00:00 [facility] DTaP, Unspecified 2005-09-20 Completed [facility] Formulation 00:00:00 [facility] HEPATITIS A 2005-09-20 Completed [facility] 00:00:00 [facility] HIB 4 Dose Schedule 2005-09-20 Completed [facility] 00:00:00 [facility] Pneumococcal 7 2005-09-20 Completed [facility] of Conjugate, PCV7 00:00:00 [place] [facility] (Prevnar7) [facility] IPV 2005-09-20 Completed [facility] 00:00:00 [facility] DTAP 2005-09-20 Completed [facility] 00:00:00 [facility] HIB 3 Dose Schedule 2005-09-20 Completed [facility] 00:00:00 [facility] Hepatitis A Adult 2005-09-20 Completed [facility] 00:00:00 [facility] Hep B, Adol or Pedi 2005-09-20 Completed [facility] of Dosage 00:00:00 [facility] Pneumococcal 13 2005-09-20 Completed [facility] of Conjugate, PCV13 00:00:[address] [facility] dical (Prevnar 13) Branch Polio (IPV/OPV) 2005-09-20 Completed [facility] 00:00:00 [facility] DTaP, Unspecified 2005-09-20 Completed [facility] Formulation 00:00:00 [facility] HEPATITIS A 2005-09-20 Completed [facility] 00:00:00 [facility] HIB 4 Dose Schedule 2005-09-20 Completed [facility] 00:00:00 [facility] Pneumococcal 7 2005-09-20 Completed [facility] of Conjugate, PCV7 00:00:00 [place] [facility] (Prevnar7) Branch IPV 2005-09-20 Completed [facility] 00:00:00 [facility] DTAP 2005-09-20 Completed [facility] 00:00:00 [facility] HIB 3 Dose Schedule 2005-09-20 Completed [facility] 00:00:00 [facility] Hepatitis A Adult 2005-09-20 Completed [facility] 00:00:00 [facility] Hep B, Adol or Pedi 2005-09-20 Completed [facility] of Dosage 00:00:00 [facility] Pneumococcal 13 2005-09-20 Completed [facility] of Conjugate, PCV13 00:00:[address] [facility] dicva (Prevnar 13) Branch Polio (IPV/OPV) 2005-09-20 Completed [facility] 00:00:00 [facility] DTaP, Unspecified 2005-09-20 Completed [facility] Formulation 00:00:00 [facility] HEPATITIS A 2005-09-20 Completed [facility] 00:00:00 [facility] HIB 4 Dose Schedule 2005-09-20 Completed [facility] 00:00:00 [facility] Pneumococcal 7 2005-09-20 Completed [facility] of Conjugate, PCV7 00:00:00 [place] [facility] (Prevnar7) Branch IPV 2005-09-20 Completed [facility] 00:00:00 [facility] DTAP 2005-09-20 Completed [facility] 00:00:00 [facility] HIB 3 Dose Schedule 2005-09-20 Completed [facility] rs[facility] of 00:00:00 [facility] Hepatitis A Adult 2005-09-20 Completed [facility] 00:00:00 [facility] Hep B, Adol or Pedi 2005-09-20 Completed [facility] of Dosage 00:00:00 [facility] Pneumococcal 13 2005-09-20 Completed [facility] of Conjugate, PCV13 00:00:[address] [facility] dical (Prevnar 13) Branch Polio (IPV/OPV) 2005-09-20 Completed [facility] 00:00:00 [facility] DTaP, Unspecified 2005-09-20 Completed [facility] Formulation 00:00:00 [facility] HEPATITIS A 2005-09-20 Completed [facility] 00:00:00 [facility] HIB 4 Dose Schedule 2005-09-20 Completed [facility] 00:00:00 [facility] Pneumococcal 7 2005-09-20 Completed [facility] of Conjugate, PCV7 00:00:00 [place] [facility] (Prevnar7) Branch IPV 2005-09-20 Completed [facility] 00:00:00 [facility] DTAP 2005-09-20 Completed [facility] 00:00:00 [facility] HIB 3 Dose Schedule 2005-09-20 Completed [facility] 00:00:00 [facility] Hepatitis A Adult 2005-09-20 Completed [facility] 00:00:00 [facility] Hep B, Adol or Pedi 2005-09-20 Completed [facility] of Dosage 00:00:00 [facility] Pneumococcal 13 2005-09-20 Completed [facility] of Conjugate, PCV13 00:00:00 [facility] (Prevnar 13) Branch Polio (IPV/OPV) 2005-09-20 Completed [facility] 00:00:00 [facility] DTaP, Unspecified 2005-09-20 Completed [facility] Formulation 00:00:00 [facility] HEPATITIS A 2005-09-20 Completed [facility] 00:00:00 [facility] HIB 4 Dose Schedule 2005-09-20 Completed [facility] of 00:00:00 [facility] Pneumococcal 7 2005-09-20 Completed [facility] of Conjugate, PCV7 00:00:00 [place] [facility] (Prevnar7) Branch IPV 2005-09-20 Completed [facility] 00:00:00 [facility] DTAP 2005-09-20 Completed [facility] of 00:00:00 [facility] HIB 3 Dose Schedule 2005-09-20 Completed [facility] 00:00:00 [facility] Hepatitis A Adult 2005-09-20 Completed [facility] 00:00:00 [facility] Hep B, Adol or Pedi 2005-09-20 Completed [facility] of Dosage 00:00:00 [facility] Pneumococcal 13 2005-09-20 Completed [facility] of Conjugate, PCV13 00:00:[address] [facility] dical (Prevnar 13) Branch Polio (IPV/OPV) 2005-09-20 Completed [facility] 00:00:00 [facility] DTaP, Unspecified 2005-09-20 Completed [facility] Formulation 00:00:00 [facility] HEPATITIS A 2005-09-20 Completed [facility] 00:00:00 [facility] HIB 4 Dose Schedule 2005-09-20 Completed [facility] rs[facility] 00:00:00 [facility] Pneumococcal 7 2005-09-20 Completed [facility] of Conjugate, PCV7 00:00:00 [place] [facility] (Prevnar7) Branch IPV 2005-09-20 Completed [facility] 00:00:00 [facility] DTAP 2005-09-20 Completed [facility] 00:00:00 [facility] HIB 3 Dose Schedule 2005-09-20 Completed [facility] of 00:00:00 [facility] Hepatitis A Adult 2005-09-20 Completed [facility] 00:00:00 [facility] Hep B, Adol or Pedi 2005-09-20 Completed [facility] of Dosage 00:00:00 [facility] Pneumococcal 13 2005-09-20 Completed [facility] of Conjugate, PCV13 00:00:00 [facility] (Prevnar 13) Branch Polio (IPV/OPV) 2005-09-20 Completed [facility] 00:00:00 [facility] DTaP, Unspecified 2005-09-20 Completed [facility] Formulation 00:00:00 [facility] HEPATITIS A 2005-09-20 Completed [facility] 00:00:00 [facility] HIB 4 Dose Schedule 2005-09-20 Completed [facility] 00:00:00 [facility] Pneumococcal 7 2005-09-20 Completed [facility] of Conjugate, PCV7 00:00:00 [place] [facility] (Prevnar7) Branch IPV 2005-09-20 Completed [facility] of 00:00:00 [facility] DTAP 2005-09-20 Completed [facility] 00:00:00 [facility] HIB 3 Dose Schedule 2005-09-20 Completed [facility] 00:00:00 [facility] Hepatitis A Adult 2005-09-20 Completed [facility] 00:00:00 [facility] Hep B, Adol or Pedi 2005-09-20 Completed [facility] of Dosage 00:00:00 [facility] Pneumococcal 13 2005-09-20 Completed [facility] of Conjugate, PCV13 00:00:[address] [facility] dical (Prevnar 13) Branch Polio (IPV/OPV) 2005-09-20 Completed [facility] 00:00:00 [facility] DTaP, Unspecified 2005-09-20 Completed [facility] Formulation 00:00:00 [facility] HEPATITIS A 2005-09-20 Completed [facility] 00:00:00 [facility] HIB 4 Dose Schedule 2005-09-20 Completed [facility] 00:00:00 [facility] Pneumococcal 7 2005-09-20 Completed [facility] of Conjugate, PCV7 00:00:00 [place] [facility] (Prevnar7) Branch IPV 2005-09-20 Completed [facility] 00:00:00 [facility] DTAP 2005-09-20 Completed [facility] 00:00:00 [facility] HIB 3 Dose Schedule 2005-09-20 Completed [facility] 00:00:00 [facility] Hepatitis A Adult 2005-09-20 Completed [facility] 00:00:00 [facility] Hep B, Adol or Pedi 2005-09-20 Completed [facility] of Dosage 00:00:00 [facility] Pneumococcal 13 2005-09-20 Completed [facility] of Conjugate, PCV13 00:00:00 [facility] (Prevnar 13) [place] Polio (IPV/OPV) 2005-09-20 Completed [facility] 00:00:00 [facility] DTaP, Unspecified 2005-09-20 Completed [facility] Formulation 00:00:00 [facility] HEPATITIS A 2005-09-20 Completed [facility] 00:00:00 [facility] HIB 4 Dose Schedule 2005-09-20 Completed [facility] 00:00:00 [facility] Pneumococcal 7 2005-09-20 Completed [facility] of Conjugate, PCV7 00:00:00 [place] [facility] (Prevnar7) Branch IPV 2005-09-20 Completed [facility] 00:00:00 [facility] DTAP 2005-09-20 Completed [facility] 00:00:00 [facility] HIB 3 Dose Schedule 2005-09-20 Completed [facility] 00:00:00 [facility] Hepatitis A Adult 2005-09-20 Completed [facility] 00:00:00 [facility] Hep B, Adol or Pedi 2005-09-20 Completed [facility] of Dosage 00:00:00 [facility] Pneumococcal 13 2005-09-20 Completed [facility] of Conjugate, PCV13 00:00:[address] [facility] dical (Prevnar 13) Branch Polio (IPV/OPV) 2005-09-20 Completed [facility] 00:00:00 [facility] DTaP, Unspecified 2005-09-20 Completed [facility] Formulation 00:00:00 [facility] HEPATITIS A 2005-09-20 Completed [facility] 00:00:00 [facility] HIB 4 Dose Schedule 2005-09-20 Completed [facility] 00:00:00 [facility] Pneumococcal 7 2005-09-20 Completed [facility] of Conjugate, PCV7 00:00:00 [place] [facility] (Prevnar7) Branch IPV 2005-09-20 Completed [facility] of 00:00:00 [facility] DTAP 2004-07-22 Completed [facility] 00:00:00 [facility] Hep B, Adol or Pedi 2004-07-22 Completed [facility] of Dosage 00:00:00 [facility] MMR 2004-07-22 Completed [facility] 00:00:00 [facility] Polio (IPV/OPV) 2004-07-22 Completed [facility] 00:00:00 [facility] Varicella 2004-07-22 Completed University of (varivax)(chicken 00:00:00 [facility] edical pox) Branch DTAP 2004-07-22 Completed [facility] of 00:00:00 [facility] Hep B, Adol or Pedi 2004-07-22 Completed [facility] rs[facility] of Dosage 00:00:00 [facility] MMR 2004-07-22 Completed [facility] 00:00:00 [facility] Polio (IPV/OPV) 2004-07-22 Completed [facility] 00:00:00 [facility] Varicella 2004-07-22 Completed [facility] of (varivax)(chicken 00:00:00 [place] [facility] pox) [facility] DTAP 2004-07-22 Completed [facility] 00:00:00 [facility] Hep B, Adol or Pedi 2004-07-22 Completed [facility] of Dosage 00:00:00 [facility] MMR 2004-07-22 Completed [facility] of 00:00:00 [facility] Polio (IPV/OPV) 2004-07-22 Completed [facility] 00:00:00 [facility] Varicella 2004-07-22 Completed [facility] of (varivax)(chicken 00:00:00 [place] [facility] pox) [facility] DTAP 2004-07-22 Completed [facility] 00:00:00 [facility] Hep B, Adol or Pedi 2004-07-22 Completed [facility] of Dosage 00:00:00 [facility] MMR 2004-07-22 Completed [facility] of 00:00:00 [facility] Polio (IPV/OPV) 2004-07-22 Completed [facility] 00:00:00 [facility] Varicella 2004-07-22 Completed [facility] of (varivax)(chicken 00:00:00 [place] [facility] pox) [facility] DTAP 2004-07-22 Completed [facility] 00:00:00 [facility] Hep B, Adol or Pedi 2004-07-22 Completed [facility] rs[facility] of Dosage 00:00:00 [facility] MMR 2004-07-22 Completed [facility] 00:00:00 [facility] Polio (IPV/OPV) 2004-07-22 Completed [facility] 00:00:00 [facility] Varicella 2004-07-22 Completed [facility] of (varivax)(chicken 00:00:00 [place] [facility] pox) Branch DTAP 2004-07-22 Completed [facility] 00:00:00 [facility] Hep B, Adol or Pedi 2004-07-22 Completed [facility] rs[facility] of Dosage 00:00:00 [facility] MMR 2004-07-22 Completed [facility] 00:00:00 [facility] Polio (IPV/OPV) 2004-07-22 Completed [facility] 00:00:00 [facility] Varicella 2004-07-22 Completed [facility] of (varivax)(chicken 00:00:00 [place] [facility] pox) Branch DTAP 2004-07-22 Completed [facility] 00:00:00 [facility] Hep B, Adol or Pedi 2004-07-22 Completed [facility] rs[facility] of Dosage 00:00:00 [facility] MMR 2004-07-22 Completed [facility] 00:00:00 [facility] Polio (IPV/OPV) 2004-07-22 Completed [facility] 00:00:00 [facility] Varicella 2004-07-22 Completed [facility] of (varivax)(chicken 00:00:00 [place] [facility] pox) Branch DTAP 2004-07-22 Completed [facility] 00:00:00 [facility] Hep B, Adol or Pedi 2004-07-22 Completed [facility] rs[facility] of Dosage 00:00:00 [facility] MMR 2004-07-22 Completed [facility] 00:00:00 [facility] Polio (IPV/OPV) 2004-07-22 Completed [facility] 00:00:00 [facility] Varicella 2004-07-22 Completed [facility] of (varivax)(chicken 00:00:00 [facility] edical pox) Branch DTAP 2004-07-22 Completed [facility] of 00:00:00 [facility] Hep B, Adol or Pedi 2004-07-22 Completed [facility] rs[facility] of Dosage 00:00:00 [facility] MMR 2004-07-22 Completed [facility] 00:00:00 [facility] Polio (IPV/OPV) 2004-07-22 Completed [facility] 00:00:00 [facility] Varicella 2004-07-22 Completed [facility] of (varivax)(chicken 00:00:00 [facility] edical pox) Branch DTAP 2004-07-22 Completed [facility] 00:00:00 [facility] Hep B, Adol or Pedi 2004-07-22 Completed [facility] rs[facility] of Dosage 00:00:00 [facility] MMR 2004-07-22 Completed [facility] 00:00:00 [facility] Polio (IPV/OPV) 2004-07-22 Completed [facility] 00:00:00 [facility] Varicella 2004-07-22 Completed [facility] of (varivax)(chicken 00:00:00 [place] [facility] pox) [facility] DTAP 2004-07-22 Completed [facility] 00:00:00 [facility] Hep B, Adol or Pedi 2004-07-22 Completed [facility] of Dosage 00:00:00 [facility] MMR 2004-07-22 Completed [facility] 00:00:00 [facility] Polio (IPV/OPV) 2004-07-22 Completed [facility] 00:00:00 [facility] Varicella 2004-07-22 Completed [facility] of (varivax)(chicken 00:00:00 [facility] edical pox) Branch DTAP 2004-07-22 Completed [facility] 00:00:00 [facility] Hep B, Adol or Pedi 2004-07-22 Completed [facility] of Dosage 00:00:00 [facility] MMR 2004-07-22 Completed [facility] 00:00:00 [facility] Polio (IPV/OPV) 2004-07-22 Completed [facility] 00:00:00 [facility] Varicella 2004-07-22 Completed [facility] of (varivax)(chicken 00:00:00 [place] [facility] pox) [facility] DTAP 2004-07-22 Completed [facility] of 00:00:00 [facility] Hep B, Adol or Pedi 2004-07-22 Completed [facility] of Dosage 00:00:00 [facility] MMR 2004-07-22 Completed [facility] of 00:00:00 [facility] Polio (IPV/OPV) 2004-07-22 Completed [facility] 00:00:00 [facility] Varicella 2004-07-22 Completed [facility] of (varivax)(chicken 00:00:00 [place] [facility] pox) [facility] DTAP 2004-07-22 Completed [facility] 00:00:00 [facility] Hep B, Adol or Pedi 2004-07-22 Completed [facility] of Dosage 00:00:00 [facility] MMR 2004-07-22 Completed [facility] 00:00:00 [facility] Polio (IPV/OPV) 2004-07-22 Completed [facility] 00:00:00 [facility] Varicella 2004-07-22 Completed [facility] of (varivax)(chicken 00:00:00 [place] [facility] pox) [facility] DTAP 2004-07-22 Completed [facility] 00:00:00 [facility] Hep B, Adol or Pedi 2004-07-22 Completed [facility] rs[facility] of Dosage 00:00:00 [facility] MMR 2004-07-22 Completed [facility] 00:00:00 [facility] Polio (IPV/OPV) 2004-07-22 Completed [facility] 00:00:00 [facility] Varicella 2004-07-22 Completed [facility] of (varivax)(chicken 00:00:00 [place] [facility] pox) [facility] DTAP 2004-07-22 Completed [facility] 00:00:00 [facility] Hep B, Adol or Pedi 2004-07-22 Completed [facility] of Dosage 00:00:00 [facility] MMR 2004-07-22 Completed [facility] 00:00:00 [facility] Polio (IPV/OPV) 2004-07-22 Completed [facility] 00:00:00 [facility] Varicella 2004-07-22 Completed [facility] of (varivax)(chicken 00:00:00 [place] [facility] pox) Branch DTAP 2004-07-22 Completed [facility] of 00:00:00 [facility] Hep B, Adol or Pedi 2004-07-22 Completed [facility] of Dosage 00:00:00 [facility] MMR 2004-07-22 Completed [facility] 00:00:00 [facility] Polio (IPV/OPV) 2004-07-22 Completed [facility] 00:00:00 [facility] Varicella 2004-07-22 Completed [facility] of (varivax)(chicken 00:00:00 [facility] edical pox) Branch DTAP 2004-07-22 Completed [facility] of 00:00:00 [facility] Hep B, Adol or Pedi 2004-07-22 Completed [facility] rs[facility] of Dosage 00:00:00 [facility] MMR 2004-07-22 Completed [facility] of 00:00:00 [facility] Polio (IPV/OPV) 2004-07-22 Completed [facility] 00:00:00 [facility] Varicella 2004-07-22 Completed [facility] of (varivax)(chicken 00:00:00 [place] [facility] pox) Branch DTAP 2004-07-22 Completed [facility] 00:00:00 [facility] Hep B, Adol or Pedi 2004-07-22 Completed [facility] rs[facility] of Dosage 00:00:00 [facility] MMR 2004-07-22 Completed [facility] 00:00:00 [facility] Polio (IPV/OPV) 2004-07-22 Completed [facility] 00:00:00 [facility] Varicella 2004-07-22 Completed [facility] of (varivax)(chicken 00:00:00 [place] [facility] pox) Branch DTAP 2004-07-22 Completed [facility] 00:00:00 [facility] Hep B, Adol or Pedi 2004-07-22 Completed [facility] of Dosage 00:00:00 [facility] MMR 2004-07-22 Completed [facility] 00:00:00 [place] [facility] Polio (IPV/OPV) 2004-07-22 Completed [facility] 00:00:00 [facility] Varicella 2004-07-22 Completed [facility] of (varivax)(chicken 00:00:00 [place] [facility] pox) Branch DTAP 2004-07-22 Completed [facility] 00:00:00 [facility] Hep B, Adol or Pedi 2004-07-22 Completed [facility] of Dosage 00:00:00 [facility] MMR 2004-07-22 Completed [facility] 00:00:00 [facility] Polio (IPV/OPV) 2004-07-22 Completed [facility] 00:00:00 [facility] Varicella 2004-07-22 Completed [facility] of (varivax)(chicken 00:00:00 [place] [facility] pox) [facility] DTAP 2004-07-22 Completed [facility] 00:00:00 [facility] Hep B, Adol or Pedi 2004-07-22 Completed [facility] of Dosage 00:00:00 [facility] MMR 2004-07-22 Completed [facility] 00:00:00 [facility] Polio (IPV/OPV) 2004-07-22 Completed [facility] 00:00:00 [facility] Varicella 2004-07-22 Completed [facility] of (varivax)(chicken 00:00:00 [place] [facility] pox) [facility] DTAP 2004-07-22 Completed [facility] 00:00:00 [facility] Hep B, Adol or Pedi 2004-07-22 Completed [facility] of Dosage 00:00:00 [facility] MMR 2004-07-22 Completed [facility] 00:00:00 [facility] Polio (IPV/OPV) 2004-07-22 Completed [facility] 00:00:00 [facility] Varicella 2004-07-22 Completed [facility] (varivax)(chicken 00:00:00 [place] [facility] pox) [facility] DTAP 2004-07-22 Completed [facility] 00:00:00 [facility] Hep B, Adol or Pedi 2004-07-22 Completed [facility] of Dosage 00:00:00 [facility] MMR 2004-07-22 Completed [facility] 00:00:00 [facility] Polio (IPV/OPV) 2004-07-22 Completed [facility] 00:00:00 [facility] Varicella 2004-07-22 Completed [facility] of (varivax)(chicken 00:00:00 [place] [facility] pox) [facility] DTAP 2004-07-22 Completed [facility] 00:00:00 [facility] Hep B, Adol or Pedi 2004-07-22 Completed [facility] of Dosage 00:00:00 [facility] MMR 2004-07-22 Completed [facility] 00:00:00 [facility] Polio (IPV/OPV) 2004-07-22 Completed [facility] 00:00:00 [facility] Varicella 2004-07-22 Completed [facility] (varivax)(chicken 00:00:00 [place] [facility] pox) Branch DTAP 2004-07-22 Completed [facility] 00:00:00 [facility] Hep B, Adol or Pedi 2004-07-22 Completed [facility] of Dosage 00:00:00 [facility] MMR 2004-07-22 Completed [facility] 00:00:00 [facility] Polio (IPV/OPV) 2004-07-22 Completed [facility] 00:00:00 [facility] Varicella 2004-07-22 Completed [facility] of (varivax)(chicken 00:00:00 [place] [facility] pox) Branch DTAP 2004-07-22 Completed [facility] 00:00:00 [facility] Hep B, Adol or Pedi 2004-07-22 Completed [facility] of Dosage 00:00:00 [facility] MMR 2004-07-22 Completed [facility] 00:00:00 [facility] Polio (IPV/OPV) 2004-07-22 Completed [facility] 00:00:00 [facility] Varicella 2004-07-22 Completed [facility] (varivax)(chicken 00:00:00 [place] [facility] pox) [facility] DTAP 2004-07-22 Completed [facility] 00:00:00 [facility] Hep B, Adol or Pedi 2004-07-22 Completed [facility] Dosage 00:00:[address] [facility] [facility] MMR 2004-07-22 Completed [facility] 00:[facility]00 [facility] Polio (IPV/OPV) 2004-07-22 Completed [facility] 00:[facility]:00 [facility] Varicella 2004-07-22 Completed [facility] (varivax)(chicken 00:00:00 [place] [facility] DTAP 2004-07-22 Completed [facility] 00:00:00 [facility] Hep B, Adol or Pedi 2004-07-22 Completed [facility]ive [facility] of Dosage 00:00:00 [facility] MMR 2004-07-22 Completed [facility] 00:00:00 [facility] Polio (IPV/OPV) 2004-07-22 Completed [facility] 00:00:00 [facility] Varicella 2004-07-22 Completed [facility] (varivax)(chicken 00:00:00 [place] [facility] DTAP 2004-07-22 Completed [facility] 00:00:00 [facility] Hep B, Adol or Pedi 2004-07-22 Completed [facility] of Dosage 00:00:00 [facility] MMR 2004-07-22 Completed [facility] 00:00:00 [facility] Polio (IPV/OPV) 2004-07-22 Completed [facility] 00:00:00 [facility] Varicella 2004-07-22 Completed [facility] (varivax)(chicken 00:00:00 [place] [facility] DTAP 2004-07-22 Completed [facility] 00:00:00 [facility] Hep B, Adol or Pedi 2004-07-22 Completed [facility] of Dosage 00:00:00 [facility] MMR 2004-07-22 Completed [facility] 00:00:00 [facility] Polio (IPV/OPV) 2004-07-22 Completed [facility] 00:00:00 [facility] Varicella 2004-07-22 Completed [facility] (varivax)(chicken 00:00:00 [place] [facility] DTAP 2004-07-22 Completed [facility] 00:00:00 [facility] Hep B, Adol or Pedi 2004-07-22 Completed [facility] of Dosage 00:00:00 [facility] MMR 2004-07-22 Completed [facility] 00:00:00 [facility] Polio (IPV/OPV) 2004-07-22 Completed [facility] 00:00:00 [facility] Varicella 2004-07-22 Completed [facility] (varivax)(chicken 00:00:00 [place] [facility] DTAP 2004-07-22 Completed [facility] 00:00:00 [facility] Hep B, Adol or Pedi 2004-07-22 Completed [facility] rs[facility] of Dosage 00:00:00 [facility] MMR 2004-07-22 Completed [facility] 00:00:00 [facility] Polio (IPV/OPV) 2004-07-22 Completed [facility] 00:00:00 [facility] Varicella 2004-07-22 Completed [facility] (varivax)(chicken 00:00:00 [place] [facility] DTAP 2004-07-22 Completed [facility] 00:00:00 [facility] Hep B, Adol or Pedi 2004-07-22 Completed [facility] rs[facility] of Dosage 00:00:00 [facility] MMR 2004-07-22 Completed [facility] 00:00:00 [facility] Polio (IPV/OPV) 2004-07-22 Completed [facility] 00:00:00 [facility] Varicella 2004-07-22 Completed [facility] (varivax)(chicken 00:00:00 [place] [facility] DTAP 2004-07-22 Completed [facility] 00:00:00 [facility] Hep B, Adol or Pedi 2004-07-22 Completed [facility] rs[facility] of Dosage 00:00:00 [facility] MMR 2004-07-22 Completed [facility] 00:00:00 [facility] Polio (IPV/OPV) 2004-07-22 Completed [facility] 00:00:00 [facility] Varicella 2004-07-22 Completed [facility] (varivax)(chicken 00:00:00 [place] [facility] DTAP 2004-07-22 Completed [facility] 00:00:00 [facility] Hep B, Adol or Pedi 2004-07-22 Completed [facility] rs[facility] of Dosage 00:00:00 [facility] MMR 2004-07-22 Completed [facility] 00:00:00 [facility] Polio (IPV/OPV) 2004-07-22 Completed [facility] 00:00:00 [facility] Varicella 2004-07-22 Completed [facility] (varivax)(chicken 00:00:00 [place] [facility] DTAP 2004-07-22 Completed [facility] 00:00:00 [facility] Hep B, Adol or Pedi 2004-07-22 Completed [facility] rs[facility] of Dosage 00:00:00 [facility] MMR 2004-07-22 Completed [facility] 00:00:00 [facility] Polio (IPV/OPV) 2004-07-22 Completed [facility] 00:00:00 [facility] Varicella 2004-07-22 Completed [facility] (varivax)(chicken 00:00:00 [place] [facility] DTAP 2004-07-22 Completed [facility] 00:00:00 [facility] Hep B, Adol or Pedi 2004-07-22 Completed [facility] rs[facility] of Dosage 00:00:00 [facility] MMR 2004-07-22 Completed [facility] 00:00:00 [facility] Polio (IPV/OPV) 2004-07-22 Completed [facility] 00:00:00 [facility] Varicella 2004-07-22 Completed [facility] (varivax)(chicken 00:00:00 [facility] edical pox) Branch DTaP, Unspecified 2004-07-22 Completed [facility] ity of Formulation 00:00:00 [facility] IPV 2004-07-22 Completed [facility] 00:00:00 [facility] DTAP 2004-07-22 Completed [facility] 00:00:00 [facility] Hep B, Adol or Pedi 2004-07-22 Completed [facility] rs[facility] of Dosage 00:00:00 [facility] MMR 2004-07-22 Completed [facility] 00:00:00 [facility] Polio (IPV/OPV) 2004-07-22 Completed [facility] 00:00:00 [facility] Varicella 2004-07-22 Completed [facility] (varivax)(chicken 00:00:00 [place] [facility] DTaP, Unspecified 2004-07-22 Completed [facility] Formulation 00:00:00 [facility] IPV 2004-07-22 Completed [facility] 00:00:00 [facility] DTAP 2004-07-22 Completed [facility] 00:00:00 [facility] Hep B, Adol or Pedi 2004-07-22 Completed [facility] rs[facility] of Dosage 00:00:00 [facility] MMR 2004-07-22 Completed [facility] 00:00:00 [facility] Polio (IPV/OPV) 2004-07-22 Completed [facility] 00:00:00 [facility] Varicella 2004-07-22 Completed [facility] (varivax)(chicken 00:00:00 [place] [facility] DTaP, Unspecified 2004-07-22 Completed [facility] Formulation 00:00:00 [facility] IPV 2004-07-22 Completed [facility] 00:00:00 [facility] DTAP 2004-07-22 Completed [facility] 00:00:00 [facility] Hep B, Adol or Pedi 2004-07-22 Completed [facility] rs[facility] of Dosage 00:00:00 [facility] MMR 2004-07-22 Completed [facility] 00:00:00 [facility] Polio (IPV/OPV) 2004-07-22 Completed [facility] 00:00:00 [facility] Varicella 2004-07-22 Completed [facility] (varivax)(chicken 00:00:00 [place] [facility] DTaP, Unspecified 2004-07-22 Completed [facility] Formulation 00:00:00 [facility] IPV 2004-07-22 Completed [facility] 00:00:00 [facility] DTAP 2004-07-22 Completed [facility] 00:00:00 [facility] Hep B, Adol or Pedi 2004-07-22 Completed [facility] rs[facility] of Dosage 00:00:00 [facility] MMR 2004-07-22 Completed [facility] 00:00:00 [facility] Polio (IPV/OPV) 2004-07-22 Completed [facility] 00:00:00 [facility] Varicella 2004-07-22 Completed [facility] (varivax)(chicken 00:00:00 [place] [facility] DTaP, Unspecified 2004-07-22 Completed [facility] Formulation 00:00:00 [facility] IPV 2004-07-22 Completed [facility] 00:00:00 [facility] DTAP 2004-07-22 Completed [facility] 00:00:00 [facility] Hep B, Adol or Pedi 2004-07-22 Completed [facility] rs[facility] of Dosage 00:00:00 [facility] MMR 2004-07-22 Completed [facility] 00:00:00 [facility] Polio (IPV/OPV) 2004-07-22 Completed [facility] 00:00:00 [facility] Varicella 2004-07-22 Completed [facility] (varivax)(chicken 00:00:00 [place] [facility] DTaP, Unspecified 2004-07-22 Completed [facility] Formulation 00:00:00 [facility] IPV 2004-07-22 Completed [facility] 00:00:00 [facility] DTAP 2004-07-22 Completed [facility] 00:00:00 [facility] Hep B, Adol or Pedi 2004-07-22 Completed [facility] rs[facility] of Dosage 00:00:00 [facility] MMR 2004-07-22 Completed [facility] 00:00:00 [facility] Polio (IPV/OPV) 2004-07-22 Completed [facility] 00:00:00 [facility] Varicella 2004-07-22 Completed [facility] (varivax)(chicken 00:00:00 [place] [facility] DTaP, Unspecified 2004-07-22 Completed [facility] Formulation 00:00:00 [facility] IPV 2004-07-22 Completed [facility] 00:00:00 [facility] DTAP 2004-07-22 Completed [facility] 00:00:00 [facility] Hep B, Adol or Pedi 2004-07-22 Completed [facility] rs[facility] of Dosage 00:00:00 [facility] MMR 2004-07-22 Completed [facility] 00:00:00 [facility] Polio (IPV/OPV) 2004-07-22 Completed [facility] 00:00:00 [facility] Varicella 2004-07-22 Completed [facility] (varivax)(chicken 00:00:00 [place] [facility] DTaP, Unspecified 2004-07-22 Completed [facility] Formulation 00:00:00 [facility] IPV 2004-07-22 Completed [facility] 00:00:00 [facility] DTAP 2004-07-22 Completed [facility] 00:00:00 [facility] Hep B, Adol or Pedi 2004-07-22 Completed [facility] rs[facility] of Dosage 00:00:00 [facility] MMR 2004-07-22 Completed [facility] 00:00:00 [facility] Polio (IPV/OPV) 2004-07-22 Completed [facility] 00:00:00 [facility] Varicella 2004-07-22 Completed [facility] (varivax)(chicken 00:00:00 [place] [facility] DTaP, Unspecified 2004-07-22 Completed [facility] Formulation 00:00:00 [facility] IPV 2004-07-22 Completed [facility] 00:00:00 [facility] DTAP 2004-07-22 Completed [facility] 00:00:00 [facility] Hep B, Adol or Pedi 2004-07-22 Completed [facility] rs[facility] of Dosage 00:00:00 [facility] MMR 2004-07-22 Completed [facility] 00:00:00 [facility] Polio (IPV/OPV) 2004-07-22 Completed [facility] 00:00:00 [facility] Varicella 2004-07-22 Completed [facility] (varivax)(chicken 00:00:00 [place] [facility] p[facility] DTaP, Unspecified 2004-07-22 Completed [facility] Formulation 00:00:00 [facility] IPV 2004-07-22 Completed [facility] 00:00:00 [facility] DTAP 2004-07-22 Completed [facility] 00:00:00 [facility] Hep B, Adol or Pedi 2004-07-22 Completed [facility] rs[facility] of Dosage 00:00:00 [facility] MMR 2004-07-22 Completed [facility] 00:00:00 [facility] Polio (IPV/OPV) 2004-07-22 Completed [facility] 00:00:00 [facility] Varicella 2004-07-22 Completed [facility] (varivax)(chicken 00:00:00 [facility] edical pox) Branch DTaP, Unspecified 2004-07-22 Completed [facility] Formulation 00:00:00 [facility] IPV 2004-07-22 Completed [facility] 00:00:00 [facility] DTAP 2004-07-22 Completed [facility] 00:00:00 [facility] Hep B, Adol or Pedi 2004-07-22 Completed [facility] rs[facility] of Dosage 00:00:00 [facility] MMR 2004-07-22 Completed [facility] 00:00:00 [facility] Polio (IPV/OPV) 2004-07-22 Completed [facility] 00:00:00 [facility] Varicella 2004-07-22 Completed [facility] (varivax)(chicken 00:00:00 [place] [facility] p[facility] DTaP, Unspecified 2004-07-22 Completed [facility] Formulation 00:00:00 [facility] IPV 2004-07-22 Completed [facility] 00:00:00 [facility] DTAP 2004-07-22 Completed [facility] 00:00:00 [facility] Hep B, Adol or Pedi 2004-07-22 Completed [facility] rs[facility] of Dosage 00:00:00 [facility] MMR 2004-07-22 Completed [facility] 00:00:00 [facility] Polio (IPV/OPV) 2004-07-22 Completed [facility] 00:00:00 [facility] Varicella 2004-07-22 Completed [facility] (varivax)(chicken 00:00:00 [place] [facility] DTaP, Unspecified 2004-07-22 Completed [facility] Formulation 00:00:00 [facility] IPV 2004-07-22 Completed [facility] 00:00:00 [facility] DTAP 2004-07-22 Completed [facility] 00:00:00 [facility] Hep B, Adol or Pedi 2004-07-22 Completed [facility] rs[facility] of Dosage 00:00:00 [facility] MMR 2004-07-22 Completed [facility] 00:00:00 [facility] Polio (IPV/OPV) 2004-07-22 Completed [facility] 00:00:00 [facility] Varicella 2004-07-22 Completed [facility] (varivax)(chicken 00:00:00 [facility] edical pox) Branch DTaP, Unspecified 2004-07-22 Completed [facility] Formulation 00:00:00 [facility] IPV 2004-07-22 Completed [facility] 00:00:00 [facility] DTAP 2004-07-22 Completed [facility] 00:00:00 [facility] Hep B, Adol or Pedi 2004-07-22 Completed [facility] rs[facility] of Dosage 00:00:00 [facility] MMR 2004-07-22 Completed [facility] 00:00:00 [facility] Polio (IPV/OPV) 2004-07-22 Completed [facility] 00:00:00 [facility] Varicella 2004-07-22 Completed [facility] (varivax)(chicken 00:00:00 [facility] edical pox) Branch DTaP, Unspecified 2004-07-22 Completed [facility] Formulation 00:00:00 [facility] IPV 2004-07-22 Completed [facility] 00:00:00 [facility] DTAP 2004-07-22 Completed [facility] 00:00:00 [facility] Hep B, Adol or Pedi 2004-07-22 Completed [facility] rs[facility] of Dosage 00:00:00 [facility] MMR 2004-07-22 Completed [facility] 00:00:00 [facility] Polio (IPV/OPV) 2004-07-22 Completed [facility] 00:00:00 [facility] Varicella 2004-07-22 Completed [facility] (varivax)(chicken 00:00:00 [place] [facility] DTaP, Unspecified 2004-07-22 Completed [facility] Formulation 00:00:00 [facility] IPV 2004-07-22 Completed [facility] 00:00:00 [facility] DTAP 2004-07-22 Completed [facility] 00:00:00 [facility] Hep B, Adol or Pedi 2004-07-22 Completed [facility] rs[facility] of Dosage 00:00:00 [facility] MMR 2004-07-22 Completed [facility] 00:00:00 [facility] Polio (IPV/OPV) 2004-07-22 Completed [facility] 00:00:00 [facility] Varicella 2004-07-22 Completed [facility] (varivax)(chicken 00:00:00 [place] [facility] DTaP, Unspecified 2004-07-22 Completed [facility] Formulation 00:00:00 [facility] IPV 2004-07-22 Completed [facility] 00:00:00 [facility] DTAP 2004-07-22 Completed [facility] 00:00:00 [facility] Hep B, Adol or Pedi 2004-07-22 Completed [facility] rs[facility] of Dosage 00:00:00 [facility] MMR 2004-07-22 Completed [facility] 00:00:00 [facility] Polio (IPV/OPV) 2004-07-22 Completed [facility] 00:00:00 [facility] Varicella 2004-07-22 Completed [facility] (varivax)(chicken 00:00:00 [place] [facility] DTaP, Unspecified 2004-07-22 Completed [facility] Formulation 00:00:00 [facility] IPV 2004-07-22 Completed [facility] 00:00:00 [facility] DTAP 2004-07-22 Completed [facility] 00:00:00 [facility] Hep B, Adol or Pedi 2004-07-22 Completed [facility] rs[facility] of Dosage 00:00:00 [facility] MMR 2004-07-22 Completed [facility] 00:00:00 [facility] Polio (IPV/OPV) 2004-07-22 Completed [facility] 00:00:00 [facility] Varicella 2004-07-22 Completed [facility] (varivax)(chicken 00:00:00 [place] [facility] DTaP, Unspecified 2004-07-22 Completed [facility] Formulation 00:00:00 [facility] IPV 2004-07-22 Completed [facility] 00:00:00 [facility] DTAP 2004-07-22 Completed [facility] 00:00:00 [facility] Hep B, Adol or Pedi 2004-07-22 Completed [facility] rs[facility] of Dosage 00:00:00 [facility] MMR 2004-07-22 Completed [facility] 00:00:00 [facility] Polio (IPV/OPV) 2004-07-22 Completed [facility] 00:00:00 [facility] Varicella 2004-07-22 Completed [facility] (varivax)(chicken 00:00:00 [place] [facility] pox) [facility] DTaP, Unspecified 2004-07-22 Completed [facility] Formulation 00:00:00 [facility] IPV 2004-07-22 Completed [facility] 00:00:00 [facility] DTAP 2004-07-22 Completed [facility] 00:00:00 [facility] Hep B, Adol or Pedi 2004-07-22 Completed [facility] rs[facility] of Dosage 00:00:00 [facility] MMR 2004-07-22 Completed [facility] 00:00:00 [facility] Polio (IPV/OPV) 2004-07-22 Completed [facility] 00:00:00 [facility] Varicella 2004-07-22 Completed [facility] (varivax)(chicken 00:00:00 [place] [facility] p[facility]) [facility] DTaP, Unspecified 2004-07-22 Completed [facility] Formulation 00:00:00 [facility] IPV 2004-07-22 Completed [facility] 00:00:00 [facility] DTAP 2004-07-22 Completed [facility] 00:00:00 [facility] Hep B, Adol or Pedi 2004-07-22 Completed [facility] rs[facility] of Dosage 00:00:00 [facility] MMR 2004-07-22 Completed [facility] 00:00:00 [facility] Polio (IPV/OPV) 2004-07-22 Completed [facility] 00:00:00 [facility] Varicella 2004-07-22 Completed [facility] (varivax)(chicken 00:00:00 [place] [facility] DTaP, Unspecified 2004-07-22 Completed [facility] Formulation 00:00:00 [facility] IPV 2004-07-22 Completed [facility] 00:00:00 [facility] DTAP 2004-07-22 Completed [facility] 00:00:00 [facility] Hep B, Adol or Pedi 2004-07-22 Completed [facility] rs[facility] of Dosage 00:00:00 [facility] MMR 2004-07-22 Completed [facility] 00:00:00 [facility] Polio (IPV/OPV) 2004-07-22 Completed [facility] 00:00:00 [facility] Varicella 2004-07-22 Completed [facility] (varivax)(chicken 00:00:00 [place] [facility] DTaP, Unspecified 2004-07-22 Completed [facility] Formulation 00:00:00 [facility] IPV 2004-07-22 Completed [facility] 00:00:00 [facility] DTAP 2004-07-22 Completed [facility] 00:00:00 [facility] Hep B, Adol or Pedi 2004-07-22 Completed [facility] rs[facility] of Dosage 00:00:00 [facility] MMR 2004-07-22 Completed [facility] 00:00:00 [facility] Polio (IPV/OPV) 2004-07-22 Completed [facility] 00:00:00 [facility] Varicella 2004-07-22 Completed [facility] (varivax)(chicken 00:00:00 [place] [facility] DTaP, Unspecified 2004-07-22 Completed [facility] Formulation 00:00:00 [facility] IPV 2004-07-22 Completed [facility] 00:00:00 [facility] DTAP 2004-07-22 Completed [facility] 00:00:00 [facility] Hep B, Adol or Pedi 2004-07-22 Completed [facility] rs[facility] of Dosage 00:00:00 [facility] MMR 2004-07-22 Completed [facility] 00:00:00 [facility] Polio (IPV/OPV) 2004-07-22 Completed [facility] 00:00:00 [facility] Varicella 2004-07-22 Completed [facility] (varivax)(chicken 00:00:00 [place] [facility] DTaP, Unspecified 2004-07-22 Completed [facility] Formulation 00:00:00 [facility] IPV 2004-07-22 Completed [facility] 00:00:00 [facility] DTAP 2004-07-22 Completed [facility] 00:00:00 [facility] Hep B, Adol or Pedi 2004-07-22 Completed [facility] rs[facility] of Dosage 00:00:00 [facility] MMR 2004-07-22 Completed [facility] 00:00:00 [facility] Polio (IPV/OPV) 2004-07-22 Completed [facility] 00:00:00 [facility] Varicella 2004-07-22 Completed [facility] (varivax)(chicken 00:00:00 [place] [facility] DTaP, Unspecified 2004-07-22 Completed [facility] Formulation 00:00:00 [facility] IPV 2004-07-22 Completed [facility] 00:00:00 [facility] DTAP 2003-06-04 Completed [facility] 00:00:00 [facility] HIB 3 Dose Schedule 2003-06-04 Completed [facility] rsity of 00:00:00 [facility] Hep B, Adol or Pedi 2003-06-04 Completed [facility] rs[facility] of Dosage 00:00:00 [facility] MMR 2003-06-04 Completed [facility] 00:00:00 [facility] Polio (IPV/OPV) 2003-06-04 Completed [facility] 00:00:00 [facility] Varicella 2003-06-04 Completed [facility] (varivax)(chicken 00:00:00 [place] [facility] DTAP 2003-06-04 Completed [facility] 00:00:00 [facility] HIB 3 Dose Schedule 2003-06-04 Completed [facility] rs[facility] of 00:00:00 [facility] Hep B, Adol or Pedi 2003-06-04 Completed [facility] rs[facility] of Dosage 00:00:00 [facility] MMR 2003-06-04 Completed [facility] 00:00:00 [facility] Polio (IPV/OPV) 2003-06-04 Completed [facility] 00:00:00 [facility] Varicella 2003-06-04 Completed [facility] (varivax)(chicken 00:00:00 [place] [facility] DTAP 2003-06-04 Completed [facility] 00:00:00 [facility] HIB 3 Dose Schedule 2003-06-04 Completed [facility] rs[facility] of 00:00:00 [facility] Hep B, Adol or Pedi 2003-06-04 Completed [facility] rs[facility] of Dosage 00:00:00 [facility] MMR 2003-06-04 Completed [facility] 00:00:00 [facility] Polio (IPV/OPV) 2003-06-04 Completed [facility] 00:00:00 [facility] Varicella 2003-06-04 Completed [facility] (varivax)(chicken 00:00:00 [place] [facility] DTAP 2003-06-04 Completed [facility] 00:00:00 [facility] HIB 3 Dose Schedule 2003-06-04 Completed [facility] rs[facility] of 00:00:00 [facility] Hep B, Adol or Pedi 2003-06-04 Completed [facility] rs[facility] of Dosage 00:00:00 [facility] MMR 2003-06-04 Completed [facility] 00:00:00 [facility] Polio (IPV/OPV) 2003-06-04 Completed [facility] 00:00:00 [facility] Varicella 2003-06-04 Completed [facility] (varivax)(chicken 00:00:00 [place] [facility] DTAP 2003-06-04 Completed [facility] 00:00:00 [facility] HIB 3 Dose Schedule 2003-06-04 Completed [facility] rs[facility] of 00:00:00 [facility] Hep B, Adol or Pedi 2003-06-04 Completed [facility] rs[facility] of Dosage 00:00:00 [facility] MMR 2003-06-04 Completed [facility] 00:00:00 [facility] Polio (IPV/OPV) 2003-06-04 Completed [facility] 00:00:00 [facility] Varicella 2003-06-04 Completed [facility] (varivax)(chicken 00:00:00 [place] [facility] DTAP 2003-06-04 Completed [facility] 00:00:00 [facility] HIB 3 Dose Schedule 2003-06-04 Completed [facility] rsity of 00:00:00 [facility] Hep B, Adol or Pedi 2003-06-04 Completed [facility] of Dosage 00:00:00 [facility] MMR 2003-06-04 Completed [facility] 00:00:00 [facility] Polio (IPV/OPV) 2003-06-04 Completed [facility] 00:00:00 [facility] Varicella 2003-06-04 Completed [facility] (varivax)(chicken 00:00:00 [place] [facility] DTAP 2003-06-04 Completed [facility] 00:00:00 [facility] HIB 3 Dose Schedule 2003-06-04 Completed Unive rsity of 00:00:00 [facility] Hep B, Adol or Pedi 2003-06-04 Completed [facility] Dosage 00:00:00 [facility] MMR 2003-06-04 Completed [facility] 00:[facility]:00 [facility] Polio (IPV/OPV) 2003-06-04 Completed [facility] 00:[facility]:00 [facility] Varicella 2003-06-04 Completed [facility] (varivax)(chicken 00:00:00 [place] [facility] DTAP 2003-06-04 Completed [facility] 00:00:00 [facility] HIB 3 Dose Schedule 2003-06-04 Completed [facility] 00:00:00 [facility] Hep B, Adol or Pedi 2003-06-04 Completed [facility] Dosage 00:00:00 [facility] MMR 2003-06-04 Completed [facility] 00:00:00 [facility] Polio (IPV/OPV) 2003-06-04 Completed [facility] 00:00:00 [facility] Varicella 2003-06-04 Completed [facility] (varivax)(chicken 00:00:00 [place] [facility] DTAP 2003-06-04 Completed [facility] 00:00:00 [facility] HIB 3 Dose Schedule 2003-06-04 Completed [facility] 00:00:00 [facility] Hep B, Adol or Pedi 2003-06-04 Completed [facility] Dosage 00:00:00 [facility] MMR 2003-06-04 Completed [facility] 00:00:00 [facility] Polio (IPV/OPV) 2003-06-04 Completed [facility] 00:00:00 [facility] Varicella 2003-06-04 Completed [facility] (varivax)(chicken 00:00:00 [place] [facility] DTAP 2003-06-04 Completed [facility] 00:00:00 [facility] HIB 3 Dose Schedule 2003-06-04 Completed [facility] 00:00:00 [facility] Hep B, Adol or Pedi 2003-06-04 Completed [facility] Dosage 00:00:00 [facility] MMR 2003-06-04 Completed [facility] 00:00:00 [facility] Polio (IPV/OPV) 2003-06-04 Completed [facility] 00:00:00 [facility] Varicella 2003-06-04 Completed [facility] (varivax)(chicken 00:00:00 [place] [facility] DTAP 2003-06-04 Completed [facility] 00:00:00 [facility] HIB 3 Dose Schedule 2003-06-04 Completed [facility] 00:00:00 [facility] Hep B, Adol or Pedi 2003-06-04 Completed [facility] Dosage 00:00:00 [facility] MMR 2003-06-04 Completed [facility] 00:00:00 [facility] Polio (IPV/OPV) 2003-06-04 Completed [facility] 00:00:00 [facility] Varicella 2003-06-04 Completed [facility] (varivax)(chicken 00:00:00 [place] [facility] DTAP 2003-06-04 Completed [facility] 00:00:00 [facility] HIB 3 Dose Schedule 2003-06-04 Completed [facility] 00:00:00 [facility] Hep B, Adol or Pedi 2003-06-04 Completed [facility] Dosage 00:00:00 [facility] MMR 2003-06-04 Completed [facility] 00:00:00 [facility] Polio (IPV/OPV) 2003-06-04 Completed [facility] 00:00:00 [facility] Varicella 2003-06-04 Completed [facility] (varivax)(chicken 00:00:00 [place] [facility] DTAP 2003-06-04 Completed [facility] 00:00:00 [facility] HIB 3 Dose Schedule 2003-06-04 Completed [facility] 00:00:00 [facility] Hep B, Adol or Pedi 2003-06-04 Completed [facility] Dosage 00:00:00 [facility] MMR 2003-06-04 Completed [facility] 00:00:00 [facility] Polio (IPV/OPV) 2003-06-04 Completed [facility] 00:00:00 [facility] Varicella 2003-06-04 Completed [facility] (varivax)(chicken 00:00:00 [place] [facility] DTAP 2003-06-04 Completed [facility] 00:00:00 [facility] HIB 3 Dose Schedule 2003-06-04 Completed [facility] 00:00:00 [facility] Hep B, Adol or Pedi 2003-06-04 Completed [facility] Dosage 00:00:00 [facility] MMR 2003-06-04 Completed [facility] 00:00:00 [facility] Polio (IPV/OPV) 2003-06-04 Completed [facility] 00:00:00 [facility] Varicella 2003-06-04 Completed [facility] (varivax)(chicken 00:00:00 [place] [facility] DTAP 2003-06-04 Completed [facility] 00:00:00 [facility] HIB 3 Dose Schedule 2003-06-04 Completed [facility] 00:00:00 [facility] Hep B, Adol or Pedi 2003-06-04 Completed [facility] Dosage 00:00:00 [facility] MMR 2003-06-04 Completed [facility] 00:00:00 [facility] Polio (IPV/OPV) 2003-06-04 Completed [facility] 00:00:00 [facility] Varicella 2003-06-04 Completed [facility] (varivax)(chicken 00:00:00 [place] [facility] DTAP 2003-06-04 Completed [facility] 00:00:00 [facility] HIB 3 Dose Schedule 2003-06-04 Completed [facility] 00:00:00 [facility] Hep B, Adol or Pedi 2003-06-04 Completed [facility] Dosage 00:00:00 [facility] MMR 2003-06-04 Completed [facility] 00:00:00 [facility] Polio (IPV/OPV) 2003-06-04 Completed [facility] 00:00:00 [facility] Varicella 2003-06-04 Completed [facility] (varivax)(chicken 00:00:00 [place] [facility] DTAP 2003-06-04 Completed [facility] 00:00:00 [facility] HIB 3 Dose Schedule 2003-06-04 Completed [facility] 00:00:00 [facility] Hep B, Adol or Pedi 2003-06-04 Completed [facility] Dosage 00:00:00 [facility] MMR 2003-06-04 Completed [facility] 00:00:00 [facility] Polio (IPV/OPV) 2003-06-04 Completed [facility] 00:00:00 [facility] Varicella 2003-06-04 Completed [facility] (varivax)(chicken 00:00:00 [place] [facility] DTAP 2003-06-04 Completed [facility] 00:00:00 [facility] HIB 3 Dose Schedule 2003-06-04 Completed [facility] 00:00:00 [facility] Hep B, Adol or Pedi 2003-06-04 Completed [facility] Dosage 00:00:00 [facility] MMR 2003-06-04 Completed [facility] 00:00:00 [facility] Polio (IPV/OPV) 2003-06-04 Completed [facility] 00:00:00 [facility] Varicella 2003-06-04 Completed [facility] (varivax)(chicken 00:00:00 [place] [facility] DTAP 2003-06-04 Completed [facility] 00:00:00 [facility] HIB 3 Dose Schedule 2003-06-04 Completed [facility] 00:00:00 [facility] Hep B, Adol or Pedi 2003-06-04 Completed [facility] Dosage 00:00:00 [facility] MMR 2003-06-04 Completed [facility] 00:00:00 [facility] Polio (IPV/OPV) 2003-06-04 Completed [facility] 00:00:00 [facility] Varicella 2003-06-04 Completed [facility] (varivax)(chicken 00:00:00 [place] [facility] DTAP 2003-06-04 Completed [facility] 00:00:00 [facility] HIB 3 Dose Schedule 2003-06-04 Completed [facility] 00:00:00 [facility] Hep B, Adol or Pedi 2003-06-04 Completed [facility] Dosage 00:00:00 [facility] MMR 2003-06-04 Completed [facility] 00:00:00 [facility] Polio (IPV/OPV) 2003-06-04 Completed [facility] 00:00:00 [facility] Varicella 2003-06-04 Completed [facility] (varivax)(chicken 00:00:00 [place] [facility] DTAP 2003-06-04 Completed [facility] 00:00:00 [facility] HIB 3 Dose Schedule 2003-06-04 Completed [facility] 00:00:00 [facility] Hep B, Adol or Pedi 2003-06-04 Completed [facility] Dosage 00:00:00 [facility] MMR 2003-06-04 Completed [facility] 00:00:00 [facility] Polio (IPV/OPV) 2003-06-04 Completed [facility] 00:00:00 [facility] Varicella 2003-06-04 Completed [facility] (varivax)(chicken 00:00:00 [place] [facility] DTAP 2003-06-04 Completed [facility] 00:00:00 [facility] HIB 3 Dose Schedule 2003-06-04 Completed [facility] 00:00:00 [facility] Hep B, Adol or Pedi 2003-06-04 Completed [facility] Dosage 00:00:00 [facility] MMR 2003-06-04 Completed [facility] 00:00:00 [facility] Polio (IPV/OPV) 2003-06-04 Completed [facility] 00:00:00 [facility] Varicella 2003-06-04 Completed [facility] (varivax)(chicken 00:00:00 [place] [facility] DTAP 2003-06-04 Completed [facility] 00:00:00 [facility] HIB 3 Dose Schedule 2003-06-04 Completed [facility] 00:00:00 [facility] Hep B, Adol or Pedi 2003-06-04 Completed [facility] Dosage 00:00:00 [facility] MMR 2003-06-04 Completed [facility] 00:00:00 [facility] Polio (IPV/OPV) 2003-06-04 Completed [facility] 00:00:00 [facility] Varicella 2003-06-04 Completed [facility] (varivax)(chicken 00:00:00 [place] [facility] DTAP 2003-06-04 Completed [facility] 00:00:00 [facility] HIB 3 Dose Schedule 2003-06-04 Completed [facility] 00:00:00 [facility] Hep B, Adol or Pedi 2003-06-04 Completed [facility] Dosage 00:00:00 [facility] MMR 2003-06-04 Completed [facility] 00:00:00 [facility] Polio (IPV/OPV) 2003-06-04 Completed [facility] 00:00:00 [facility] Varicella 2003-06-04 Completed [facility] (varivax)(chicken 00:00:00 [place] [facility] DTAP 2003-06-04 Completed [facility] 00:00:00 [facility] HIB 3 Dose Schedule 2003-06-04 Completed [facility] 00:00:00 [facility] Hep B, Adol or Pedi 2003-06-04 Completed [facility] Dosage 00:00:00 [facility] MMR 2003-06-04 Completed [facility] 00:00:00 [facility] Polio (IPV/OPV) 2003-06-04 Completed [facility] 00:00:00 [facility] Varicella 2003-06-04 Completed [facility] (varivax)(chicken 00:00:00 [place] [facility] DTAP 2003-06-04 Completed [facility] 00:00:00 [facility] HIB 3 Dose Schedule 2003-06-04 Completed [facility] 00:00:00 [facility] Hep B, Adol or Pedi 2003-06-04 Completed [facility] Dosage 00:00:00 [facility] MMR 2003-06-04 Completed [facility] 00:00:00 [facility] Polio (IPV/OPV) 2003-06-04 Completed [facility] 00:00:00 [facility] Varicella 2003-06-04 Completed [facility] (varivax)(chicken 00:00:00 [place] [facility] DTAP 2003-06-04 Completed [facility] 00:00:00 [facility] HIB 3 Dose Schedule 2003-06-04 Completed [facility] 00:00:00 [facility] Hep B, Adol or Pedi 2003-06-04 Completed [facility] Dosage 00:00:00 [facility] MMR 2003-06-04 Completed [facility] 00:00:00 [facility] Polio (IPV/OPV) 2003-06-04 Completed [facility] 00:00:00 [facility] Varicella 2003-06-04 Completed [facility] (varivax)(chicken 00:00:00 [place] [facility] DTAP 2003-06-04 Completed [facility] 00:00:00 [facility] HIB 3 Dose Schedule 2003-06-04 Completed [facility] 00:00:00 [facility] Hep B, Adol or Pedi 2003-06-04 Completed [facility] Dosage 00:00:00 [facility] MMR 2003-06-04 Completed [facility] 00:00:00 [facility] Polio (IPV/OPV) 2003-06-04 Completed [facility] 00:00:00 [facility] Varicella 2003-06-04 Completed [facility] (varivax)(chicken 00:00:00 [place] [facility] DTAP 2003-06-04 Completed [facility] 00:00:00 [facility] HIB 3 Dose Schedule 2003-06-04 Completed [facility] 00:00:00 [facility] Hep B, Adol or Pedi 2003-06-04 Completed [facility] Dosage 00:00:00 [facility] MMR 2003-06-04 Completed [facility] 00:00:00 [facility] Polio (IPV/OPV) 2003-06-04 Completed [facility] 00:00:00 [facility] Varicella 2003-06-04 Completed [facility] (varivax)(chicken 00:00:00 [place] [facility] DTAP 2003-06-04 Completed [facility] 00:00:00 [facility] HIB 3 Dose Schedule 2003-06-04 Completed [facility] 00:00:00 [facility] Hep B, Adol or Pedi 2003-06-04 Completed [facility] Dosage 00:00:00 [facility] MMR 2003-06-04 Completed [facility] 00:00:00 [facility] Polio (IPV/OPV) 2003-06-04 Completed [facility] 00:00:00 [facility] Varicella 2003-06-04 Completed [facility] (varivax)(chicken 00:00:00 [place] [facility] DTAP 2003-06-04 Completed [facility] 00:00:00 [facility] HIB 3 Dose Schedule 2003-06-04 Completed [facility] 00:00:00 [facility] Hep B, Adol or Pedi 2003-06-04 Completed [facility] Dosage 00:00:00 [facility] MMR 2003-06-04 Completed [facility] 00:00:00 [facility] Polio (IPV/OPV) 2003-06-04 Completed [facility] 00:00:00 [facility] Varicella 2003-06-04 Completed [facility] (varivax)(chicken 00:00:00 [place] [facility] DTAP 2003-06-04 Completed [facility] 00:00:00 [facility] HIB 3 Dose Schedule 2003-06-04 Completed [facility] 00:00:00 [facility] Hep B, Adol or Pedi 2003-06-04 Completed [facility] Dosage 00:00:00 [facility] MMR 2003-06-04 Completed [facility] 00:00:00 [facility] Polio (IPV/OPV) 2003-06-04 Completed [facility] 00:00:00 [facility] Varicella 2003-06-04 Completed [facility] (varivax)(chicken 00:00:00 [place] [facility] DTAP 2003-06-04 Completed [facility] 00:00:00 [facility] HIB 3 Dose Schedule 2003-06-04 Completed [facility] 00:00:00 [facility] Hep B, Adol or Pedi 2003-06-04 Completed [facility] Dosage 00:00:00 [facility] MMR 2003-06-04 Completed [facility] 00:00:00 [facility] Polio (IPV/OPV) 2003-06-04 Completed [facility] 00:00:00 [facility] Varicella 2003-06-04 Completed [facility] (varivax)(chicken 00:00:00 [place] [facility] DTAP 2003-06-04 Completed [facility] 00:00:00 [facility] HIB 3 Dose Schedule 2003-06-04 Completed [facility] 00:00:00 [facility] Hep B, Adol or Pedi 2003-06-04 Completed [facility] Dosage 00:00:00 [facility] MMR 2003-06-04 Completed [facility] 00:00:00 [facility] Polio (IPV/OPV) 2003-06-04 Completed [facility] 00:00:00 [facility] Varicella 2003-06-04 Completed [facility] (varivax)(chicken 00:00:00 [place] [facility] DTAP 2003-06-04 Completed [facility] 00:00:00 [facility] HIB 3 Dose Schedule 2003-06-04 Completed [facility] 00:00:00 [facility] Hep B, Adol or Pedi 2003-06-04 Completed [facility] Dosage 00:00:00 [facility] MMR 2003-06-04 Completed [facility] 00:00:00 [facility] Polio (IPV/OPV) 2003-06-04 Completed [facility] 00:00:00 [facility] Varicella 2003-06-04 Completed [facility] (varivax)(chicken 00:00:00 [place] [facility] DTAP 2003-06-04 Completed [facility] 00:00:00 [facility] HIB 3 Dose Schedule 2003-06-04 Completed [facility] 00:00:00 [facility] Hep B, Adol or Pedi 2003-06-04 Completed [facility] Dosage 00:00:00 [facility] MMR 2003-06-04 Completed [facility] 00:00:00 [facility] Polio (IPV/OPV) 2003-06-04 Completed [facility] 00:00:00 [facility] Varicella 2003-06-04 Completed [facility] (varivax)(chicken 00:00:00 [place] [facility] DTAP 2003-06-04 Completed [facility] 00:00:00 [facility] HIB 3 Dose Schedule 2003-06-04 Completed [facility] 00:00:00 [facility] Hep B, Adol or Pedi 2003-06-04 Completed [facility] Dosage 00:00:00 [facility] MMR 2003-06-04 Completed [facility] 00:00:00 [facility] Polio (IPV/OPV) 2003-06-04 Completed [facility] 00:00:00 [facility] Varicella 2003-06-04 Completed [facility] (varivax)(chicken 00:00:00 [place] [facility] DTAP 2003-06-04 Completed [facility] 00:00:00 [facility] HIB 3 Dose Schedule 2003-06-04 Completed [facility] 00:00:00 [facility] Hep B, Adol or Pedi 2003-06-04 Completed [facility] Dosage 00:00:00 [facility] MMR 2003-06-04 Completed [facility] 00:00:00 [facility] Polio (IPV/OPV) 2003-06-04 Completed [facility] 00:00:00 [facility] Varicella 2003-06-04 Completed [facility] (varivax)(chicken 00:00:00 [place] [facility] DTaP, Unspecified 2003-06-04 Completed [facility] Formulation 00:00:00 [facility] HIB 4 Dose Schedule 2003-06-04 Completed [facility] 00:00:00 [facility] IPV 2003-06-04 Completed [facility] 00:00:00 [facility] DTAP 2003-06-04 Completed [facility] 00:00:00 [facility] HIB 3 Dose Schedule 2003-06-04 Completed [facility] 00:00:00 [facility] Hep B, Adol or Pedi 2003-06-04 Completed [facility] Dosage 00:00:00 [facility] MMR 2003-06-04 Completed [facility] 00:00:00 [facility] Polio (IPV/OPV) 2003-06-04 Completed [facility] 00:00:00 [facility] Varicella 2003-06-04 Completed [facility] (varivax)(chicken 00:00:00 [place] [facility] DTaP, Unspecified 2003-06-04 Completed [facility] Formulation 00:00:00 [facility] HIB 4 Dose Schedule 2003-06-04 Completed [facility] 00:00:00 [facility] IPV 2003-06-04 Completed [facility] 00:00:00 [facility] DTAP 2003-06-04 Completed [facility] 00:00:00 [facility] HIB 3 Dose Schedule 2003-06-04 Completed [facility] 00:00:00 [facility] Hep B, Adol or Pedi 2003-06-04 Completed [facility] Dosage 00:00:00 [facility] MMR 2003-06-04 Completed [facility] 00:00:00 [facility] Polio (IPV/OPV) 2003-06-04 Completed [facility] 00:00:00 [facility] Varicella 2003-06-04 Completed [facility] (varivax)(chicken 00:00:00 [place] [facility] DTaP, Unspecified 2003-06-04 Completed [facility] Formulation 00:00:00 [facility] HIB 4 Dose Schedule 2003-06-04 Completed [facility] 00:00:00 [facility] IPV 2003-06-04 Completed [facility] 00:00:00 [facility] DTAP 2003-06-04 Completed [facility] 00:00:00 [facility] HIB 3 Dose Schedule 2003-06-04 Completed [facility] 00:00:00 [facility] Hep B, Adol or Pedi 2003-06-04 Completed [facility] Dosage 00:00:00 [facility] MMR 2003-06-04 Completed [facility] 00:00:00 [facility] Polio (IPV/OPV) 2003-06-04 Completed [facility] 00:00:00 [facility] Varicella 2003-06-04 Completed [facility] (varivax)(chicken 00:00:00 [place] [facility] DTaP, Unspecified 2003-06-04 Completed [facility] Formulation 00:00:00 [facility] HIB 4 Dose Schedule 2003-06-04 Completed [facility] 00:00:00 [facility] IPV 2003-06-04 Completed [facility] 00:00:00 [facility] DTAP 2003-06-04 Completed [facility] 00:00:00 [facility] HIB 3 Dose Schedule 2003-06-04 Completed [facility] 00:00:00 [facility] Hep B, Adol or Pedi 2003-06-04 Completed [facility] Dosage 00:00:00 [facility] MMR 2003-06-04 Completed [facility] 00:00:00 [facility] Polio (IPV/OPV) 2003-06-04 Completed [facility] 00:00:00 [facility] Varicella 2003-06-04 Completed [facility] (varivax)(chicken 00:00:00 [place] [facility] DTaP, Unspecified 2003-06-04 Completed [facility] Formulation 00:00:00 [facility] HIB 4 Dose Schedule 2003-06-04 Completed [facility] 00:00:00 [facility] IPV 2003-06-04 Completed [facility] 00:00:00 [facility] DTAP 2003-06-04 Completed [facility] 00:00:00 [facility] HIB 3 Dose Schedule 2003-06-04 Completed [facility] 00:00:00 [facility] Hep B, Adol or Pedi 2003-06-04 Completed [facility] Dosage 00:00:00 [facility] MMR 2003-06-04 Completed [facility] 00:00:00 [facility] Polio (IPV/OPV) 2003-06-04 Completed [facility] 00:00:00 [facility] Varicella 2003-06-04 Completed [facility] (varivax)(chicken 00:00:00 [place] [facility] DTaP, Unspecified 2003-06-04 Completed [facility] Formulation 00:00:00 [facility] HIB 4 Dose Schedule 2003-06-04 Completed [facility] 00:00:00 [facility] IPV 2003-06-04 Completed [facility] 00:00:00 [facility] DTAP 2003-06-04 Completed [facility] 00:00:00 [facility] HIB 3 Dose Schedule 2003-06-04 Completed [facility] 00:00:00 [facility] Hep B, Adol or Pedi 2003-06-04 Completed [facility] Dosage 00:00:00 [facility] MMR 2003-06-04 Completed [facility] 00:00:00 [facility] Polio (IPV/OPV) 2003-06-04 Completed [facility] 00:00:00 [facility] Varicella 2003-06-04 Completed [facility] (varivax)(chicken 00:00:00 [place] [facility] DTaP, Unspecified 2003-06-04 Completed [facility] Formulation 00:00:00 [facility] HIB 4 Dose Schedule 2003-06-04 Completed [facility] 00:00:00 [facility] IPV 2003-06-04 Completed [facility] 00:00:00 [facility] DTAP 2003-06-04 Completed [facility] 00:00:00 [facility] HIB 3 Dose Schedule 2003-06-04 Completed [facility] 00:00:00 [facility] Hep B, Adol or Pedi 2003-06-04 Completed [facility] Dosage 00:00:00 [facility] MMR 2003-06-04 Completed [facility] 00:00:00 [facility] Polio (IPV/OPV) 2003-06-04 Completed [facility] 00:00:00 [facility] Varicella 2003-06-04 Completed [facility] (varivax)(chicken 00:00:00 [place] [facility] DTaP, Unspecified 2003-06-04 Completed [facility] Formulation 00:00:00 [facility] HIB 4 Dose Schedule 2003-06-04 Completed [facility] 00:00:00 [facility] IPV 2003-06-04 Completed [facility] 00:00:00 [facility] DTAP 2003-06-04 Completed [facility] 00:00:00 [facility] HIB 3 Dose Schedule 2003-06-04 Completed [facility] 00:00:00 [facility] Hep B, Adol or Pedi 2003-06-04 Completed [facility] Dosage 00:00:00 [facility] MMR 2003-06-04 Completed [facility] 00:00:00 [facility] Polio (IPV/OPV) 2003-06-04 Completed [facility] 00:00:00 [facility] Varicella 2003-06-04 Completed [facility] (varivax)(chicken 00:00:00 [place] [facility] DTaP, Unspecified 2003-06-04 Completed [facility] Formulation 00:00:00 [facility] HIB 4 Dose Schedule 2003-06-04 Completed [facility] 00:00:00 [facility] IPV 2003-06-04 Completed [facility] 00:00:00 [facility] DTAP 2003-06-04 Completed [facility] 00:00:00 [facility] HIB 3 Dose Schedule 2003-06-04 Completed [facility] 00:00:00 [facility] Hep B, Adol or Pedi 2003-06-04 Completed [facility]ity of Dosage 00:00:00 [facility] MMR 2003-06-04 Completed [facility] 00:00:00 [facility] Polio (IPV/OPV) 2003-06-04 Completed [facility] 00:00:00 [facility] Varicella 2003-06-04 Completed University of (varivax)(chicken 00:00:00 [facility] edical pox) Branch DTaP, Unspecified 2003-06-04 Completed [facility] ity of Formulation 00:00:00 [facility] HIB 4 Dose Schedule 2003-06-04 Completed [facility]ive rsity of 00:00:00 [facility] IPV 2003-06-04 Completed [facility] of 00:00:00 [facility] DTAP 2003-06-04 Completed [facility] 00:00:00 [facility] HIB 3 Dose Schedule 2003-06-04 Completed [facility]ive rsity of 00:00:00 [facility] Hep B, Adol or Pedi 2003-06-04 Completed [facility] rsity of Dosage 00:00:00 [facility] MMR 2003-06-04 Completed [facility] 00:00:00 [facility] Polio (IPV/OPV) 2003-06-04 Completed [facility] 00:00:00 [facility] Varicella 2003-06-04 Completed [facility] (varivax)(chicken 00:00:00 [place] [facility] DTaP, Unspecified 2003-06-04 Completed [facility] it[facility] of Formulation 00:00:00 [facility] HIB 4 Dose Schedule 2003-06-04 Completed [facility] rsity of 00:00:00 [facility] IPV 2003-06-04 Completed [facility] 00:00:00 [facility] DTAP 2003-06-04 Completed [facility] of 00:00:00 [facility] HIB 3 Dose Schedule 2003-06-04 Completed [facility]ive rsity of 00:00:00 [facility] Hep B, Adol or Pedi 2003-06-04 Completed [facility] rsity of Dosage 00:00:00 [facility] MMR 2003-06-04 Completed [facility] 00:00:00 [facility] Polio (IPV/OPV) 2003-06-04 Completed [facility] 00:00:00 [facility] Varicella 2003-06-04 Completed [facility] of (varivax)(chicken 00:00:00 [place] [facility]ox) [facility] DTaP, Unspecified 2003-06-04 Completed [facility] it[facility] of Formulation 00:00:00 [facility] HIB 4 Dose Schedule 2003-06-04 Completed [facility] rsity of 00:00:00 [facility] IPV 2003-06-04 Completed [facility] 00:00:00 [facility] DTAP 2003-06-04 Completed [facility] 00:00:00 [facility] HIB 3 Dose Schedule 2003-06-04 Completed [facility]ive rsity of 00:00:00 [facility] Hep B, Adol or Pedi 2003-06-04 Completed [facility] rs[facility] of Dosage 00:00:00 [facility] MMR 2003-06-04 Completed [facility] 00:00:00 [facility] Polio (IPV/OPV) 2003-06-04 Completed [facility] 00:00:00 [facility] Varicella 2003-06-04 Completed [facility] of (varivax)(chicken 00:00:00 [place] [facility] pox) [facility] DTaP, Unspecified 2003-06-04 Completed [facility] it[facility] of Formulation 00:00:00 [facility] HIB 4 Dose Schedule 2003-06-04 Completed [facility]ive rsity of 00:00:00 [facility] IPV 2003-06-04 Completed [facility] of 00:00:00 [facility] DTAP 2003-06-04 Completed [facility] of 00:00:00 [facility] HIB 3 Dose Schedule 2003-06-04 Completed [facility]ive rsity of 00:00:00 [facility] Hep B, Adol or Pedi 2003-06-04 Completed [facility] rsity of Dosage 00:00:00 [facility] MMR 2003-06-04 Completed [facility] 00:00:00 [facility] Polio (IPV/OPV) 2003-06-04 Completed [facility] 00:00:00 [facility] Varicella 2003-06-04 Completed University of (varivax)(chicken 00:00:00 [facility] edical pox) Branch DTaP, Unspecified 2003-06-04 Completed [facility] ity of Formulation 00:00:00 [facility] HIB 4 Dose Schedule 2003-06-04 Completed [facility]ive rsity of 00:00:00 [facility] IPV 2003-06-04 Completed [facility] of 00:00:00 [facility] DTAP 2003-06-04 Completed [facility] of 00:00:00 [facility] HIB 3 Dose Schedule 2003-06-04 Completed [facility]ive rsity of 00:00:00 [facility] Hep B, Adol or Pedi 2003-06-04 Completed [facility] rsity of Dosage 00:00:00 [facility] MMR 2003-06-04 Completed [facility] of 00:00:00 [facility] Polio (IPV/OPV) 2003-06-04 Completed [facility] 00:00:00 [facility] Varicella 2003-06-04 Completed University of (varivax)(chicken 00:00:00 [facility] edical pox) Branch DTaP, Unspecified 2003-06-04 Completed [facility] ity of Formulation 00:00:00 [facility] HIB 4 Dose Schedule 2003-06-04 Completed [facility]ive rsity of 00:00:00 [facility] IPV 2003-06-04 Completed University of 00:00:00 [facility] DTAP 2003-06-04 Completed [facility] of 00:00:00 [facility] HIB 3 Dose Schedule 2003-06-04 Completed [facility]ive rsity of 00:00:00 [facility] Hep B, Adol or Pedi 2003-06-04 Completed [facility]ive rsity of Dosage 00:00:00 [facility] MMR 2003-06-04 Completed [facility] of 00:00:00 [facility] Polio (IPV/OPV) 2003-06-04 Completed [facility] 00:00:00 [facility] Varicella 2003-06-04 Completed [facility] of (varivax)(chicken 00:00:00 [place] [facility] pox) [facility] DTaP, Unspecified 2003-06-04 Completed [facility] it[facility] of Formulation 00:00:00 [facility] HIB 4 Dose Schedule 2003-06-04 Completed [facility]ive rsity of 00:00:00 [facility] IPV 2003-06-04 Completed [facility] of 00:00:00 [facility] DTAP 2003-06-04 Completed [facility] of 00:00:00 [facility] HIB 3 Dose Schedule 2003-06-04 Completed [facility]ive rsity of 00:00:00 [facility] Hep B, Adol or Pedi 2003-06-04 Completed [facility] rsity of Dosage 00:00:00 [facility] MMR 2003-06-04 Completed [facility] 00:00:00 [facility] Polio (IPV/OPV) 2003-06-04 Completed [facility] 00:00:00 [facility] Varicella 2003-06-04 Completed [facility] of (varivax)(chicken 00:00:00 [place] [facility] pox) [facility] DTaP, Unspecified 2003-06-04 Completed [facility] it[facility] of Formulation 00:00:00 [facility] HIB 4 Dose Schedule 2003-06-04 Completed [facility]ive rsity of 00:00:00 [facility] IPV 2003-06-04 Completed [facility] of 00:00:00 [facility] DTAP 2003-06-04 Completed [facility] of 00:00:00 [facility] HIB 3 Dose Schedule 2003-06-04 Completed [facility]ive rsity of 00:00:00 [facility] Hep B, Adol or Pedi 2003-06-04 Completed [facility] rsity of Dosage 00:00:00 [facility] MMR 2003-06-04 Completed [facility] 00:00:00 [facility] Polio (IPV/OPV) 2003-06-04 Completed [facility] 00:00:00 [facility] Varicella 2003-06-04 Completed [facility] of (varivax)(chicken 00:00:00 [place] [facility] pox) [facility] DTaP, Unspecified 2003-06-04 Completed [facility] of Formulation 00:00:00 [facility] HIB 4 Dose Schedule 2003-06-04 Completed [facility]ive rsity of 00:00:00 [facility] IPV 2003-06-04 Completed [facility] 00:00:00 [facility] DTAP 2003-06-04 Completed [facility] 00:00:00 [facility] HIB 3 Dose Schedule 2003-06-04 Completed [facility]ive rsity of 00:00:00 [facility] Hep B, Adol or Pedi 2003-06-04 Completed [facility] rs[facility] of Dosage 00:00:00 [facility] MMR 2003-06-04 Completed [facility] 00:00:00 [facility] Polio (IPV/OPV) 2003-06-04 Completed [facility] 00:00:00 [facility] Varicella 2003-06-04 Completed [facility] of (varivax)(chicken 00:00:00 [place] [facility] pox) [facility] DTaP, Unspecified 2003-06-04 Completed [facility] of Formulation 00:00:00 [facility] HIB 4 Dose Schedule 2003-06-04 Completed [facility]ive rsity of 00:00:00 [facility] IPV 2003-06-04 Completed [facility] of 00:00:00 [facility] DTAP 2003-06-04 Completed [facility] 00:00:00 [facility] HIB 3 Dose Schedule 2003-06-04 Completed [facility] rsity of 00:00:00 [facility] Hep B, Adol or Pedi 2003-06-04 Completed [facility] rs[facility] of Dosage 00:00:00 [facility] MMR 2003-06-04 Completed [facility] 00:00:00 [facility] Polio (IPV/OPV) 2003-06-04 Completed [facility] 00:00:00 [facility] Varicella 2003-06-04 Completed [facility] of (varivax)(chicken 00:00:00 [place] [facility] pox) [facility] DTaP, Unspecified 2003-06-04 Completed [facility] Formulation 00:00:00 [facility] HIB 4 Dose Schedule 2003-06-04 Completed [facility] rsity of 00:00:00 [facility] IPV 2003-06-04 Completed [facility] of 00:00:00 [facility] DTAP 2003-06-04 Completed [facility] of 00:00:00 [facility] HIB 3 Dose Schedule 2003-06-04 Completed Unive rsity of 00:00:00 [facility] Hep B, Adol or Pedi 2003-06-04 Completed [facility] rs[facility] of Dosage 00:00:00 [facility] MMR 2003-06-04 Completed [facility] 00:00:00 [facility] Polio (IPV/OPV) 2003-06-04 Completed [facility] 00:00:00 [facility] Varicella 2003-06-04 Completed [facility] of (varivax)(chicken 00:00:00 [place] [facility] pox) [facility] DTaP, Unspecified 2003-06-04 Completed [facility] of Formulation 00:00:00 [facility] HIB 4 Dose Schedule 2003-06-04 Completed [facility] rsity of 00:00:00 [facility] IPV 2003-06-04 Completed [facility] of 00:00:00 [facility] DTAP 2003-06-04 Completed [facility] of 00:00:00 [facility] HIB 3 Dose Schedule 2003-06-04 Completed [facility] rsity of 00:00:00 [facility] Hep B, Adol or Pedi 2003-06-04 Completed [facility] rs[facility] of Dosage 00:00:00 [facility] MMR 2003-06-04 Completed [facility] 00:00:00 [facility] Polio (IPV/OPV) 2003-06-04 Completed [facility] 00:00:00 [facility] Varicella 2003-06-04 Completed [facility] of (varivax)(chicken 00:00:00 [place] [facility] pox) [facility] DTaP, Unspecified 2003-06-04 Completed [facility] Formulation 00:00:00 [facility] HIB 4 Dose Schedule 2003-06-04 Completed [facility] rsity of 00:00:00 [facility] IPV 2003-06-04 Completed [facility] 00:00:00 [facility] DTAP 2003-06-04 Completed [facility] 00:00:00 [facility] HIB 3 Dose Schedule 2003-06-04 Completed [facility] rs[facility] of 00:00:00 [facility] Hep B, Adol or Pedi 2003-06-04 Completed [facility] of Dosage 00:00:00 [facility] MMR 2003-06-04 Completed [facility] 00:00:00 [facility] Polio (IPV/OPV) 2003-06-04 Completed [facility] 00:00:00 [facility] Varicella 2003-06-04 Completed [facility] of (varivax)(chicken 00:00:00 [place] [facility] pox) [facility] DTaP, Unspecified 2003-06-04 Completed [facility] Formulation 00:00:00 [facility] HIB 4 Dose Schedule 2003-06-04 Completed [facility] rsity of 00:00:00 [facility] IPV 2003-06-04 Completed [facility] of 00:00:00 [facility] DTAP 2003-06-04 Completed [facility] of 00:00:00 [facility] HIB 3 Dose Schedule 2003-06-04 Completed Unive rsity of 00:00:00 [facility] Hep B, Adol or Pedi 2003-06-04 Completed [facility] rs[facility] of Dosage 00:00:00 [facility] MMR 2003-06-04 Completed [facility] 00:00:00 [facility] Polio (IPV/OPV) 2003-06-04 Completed [facility] 00:00:00 [facility] Varicella 2003-06-04 Completed [facility] of (varivax)(chicken 00:00:00 [place] [facility] pox) [facility] DTaP, Unspecified 2003-06-04 Completed [facility] Formulation 00:00:00 [facility] HIB 4 Dose Schedule 2003-06-04 Completed [facility] rsity of 00:00:00 [facility] IPV 2003-06-04 Completed [facility] 00:00:00 [facility] DTAP 2003-06-04 Completed [facility] 00:00:00 [facility] HIB 3 Dose Schedule 2003-06-04 Completed [facility] rs[facility] of 00:00:00 [facility] Hep B, Adol or Pedi 2003-06-04 Completed [facility] rs[facility] of Dosage 00:00:00 [facility] MMR 2003-06-04 Completed [facility] 00:00:00 [facility] Polio (IPV/OPV) 2003-06-04 Completed [facility] 00:00:00 [facility] Varicella 2003-06-04 Completed [facility] of (varivax)(chicken 00:00:00 [place] [facility] pox) [facility] DTaP, Unspecified 2003-06-04 Completed [facility] of Formulation 00:00:00 [facility] HIB 4 Dose Schedule 2003-06-04 Completed [facility] rsity of 00:00:00 [facility] IPV 2003-06-04 Completed [facility] 00:00:00 [facility] DTAP 2003-06-04 Completed [facility] 00:00:00 [facility] HIB 3 Dose Schedule 2003-06-04 Completed [facility] rsity of 00:00:00 [facility] Hep B, Adol or Pedi 2003-06-04 Completed [facility] rs[facility] of Dosage 00:00:00 [facility] MMR 2003-06-04 Completed [facility] 00:00:00 [facility] Polio (IPV/OPV) 2003-06-04 Completed [facility] 00:00:00 [facility] Varicella 2003-06-04 Completed [facility] of (varivax)(chicken 00:00:00 [facility] edical pox) Branch DTaP, Unspecified 2003-06-04 Completed [facility] of Formulation 00:00:00 [facility] HIB 4 Dose Schedule 2003-06-04 Completed [facility] rsity of 00:00:00 [facility] IPV 2003-06-04 Completed [facility] 00:00:00 [facility] Vital Signs Vital Name Observation Time Observation Value Comments Source Systolic blood 2022-08-12 15:38:00 123 mm[Hg] Un[facility] pressure [facility] Diastolic blood 2022-08-12 15:38:00 81 mm[Hg] [facility] rs[facility] pressure [facility] Heart rate 2022-08-12 15:38:00 92 /min [facility] ty of [facility] Body temperature 2022-08-12 15:38:00 35.[address] [facility] Respiratory rate 2022-08-12 15:38:00 18 /min [facility] ers[facility] of [facility] Body height 2022-08-12 15:38:00 167.[address] Body weight 2022-08-12 15:38:00 80.377 kg Universi ty [facility] BMI 2022-08-12 15:38:00 28.60 kg/m2 [facility]i ty of [facility] Systolic blood 2022-08-01 15:20:00 134 mm[Hg] [facility] pressure [facility] Diastolic blood 2022-08-01 15:20:00 90 mm[Hg] [facility] rs[facility] pressure [facility] Heart rate 2022-08-01 14:55:00 91 /min [facility] ty [facility] Body temperature 2022-08-01 14:55:00 [address] [address] [facility] Respiratory rate 2022-08-01 14:55:00 17 /min Univ ersity [facility] Body height 2022-08-01 14:55:00 167.[address] [facility] Body weight 2022-08-01 14:55:00 81.874 kg [facility] BMI 2022-08-01 14:55:00 29.13 kg/m2 [facility] Systolic blood 2022-07-29 16:00:00 131 mm[Hg] [facility] of pressure [facility] Diastolic blood 2022-07-29 16:00:00 77 mm[Hg] [facility] rsity of pressure [facility] Respiratory rate 2022-07-29 15:56:00 18 /min [facility] Heart rate 2022-07-29 12:15:00 112 /min [facility] Oxygen saturation in 2022-07-29 12:15:00 96 /min [facility] of Arterial blood by [employer] P[facility] oxim[facility] Branch Body temperature 2022-07-29 10:00:00 36.89 Nabila [facility] Body height 2022-07-29 03:10:00 167.6 cm [facility] Body weight 2022-07-29 03:10:00 83.643 kg [facility] BMI 2022-07-29 03:10:00 29.76 kg/m2 [facility] Systolic blood 2022-07-25 13:45:00 140 mm[Hg] Un[facility] of pressure [facility] Diastolic blood 2022-07-25 13:45:00 97 mm[Hg] Un[facility] rs[facility] of pressure [facility] Heart rate 2022-07-25 12:15:00 92 /min [facility] Body temperature 2022-07-25 12:15:00 36.67 Nabila [facility] Respiratory rate 2022-07-25 12:15:00 18 /min [facility] Oxygen saturation in 2022-07-25 12:15:00 100 /min [facility] of Arterial blood by [employer] [facility] Body height 2022-07-24 14:30:00 167.6 cm [facility] Systolic blood 2022-07-23 18:30:00 130 mm[Hg] [facility] of pressure [facility] Diastolic blood 2022-07-23 18:30:00 84 mm[Hg] [facility] rs[facility] of pressure [facility] Heart rate 2022-07-23 18:30:00 115 /min [facility] Body temperature 2022-07-23 18:30:00 36.94 Nabila [facility] Respiratory rate 2022-07-23 18:30:00 18 /min [facility] Oxygen saturation in 2022-07-23 18:30:00 99 /min [facility] of Arterial blood by [facility] lottie Pulse oxim[facility] Branch Body height 2022-07-21 15:36:00 167.6 cm [facility] Body weight 2022-07-21 15:36:00 89.359 kg [facility] BMI 2022-07-21 15:36:00 31.80 kg/m2 [facility] Systolic blood 2022-07-21 18:00:00 131 mm[Hg] Un[facility] of pressure [facility] Diastolic blood 2022-07-21 18:00:00 84 mm[Hg] [facility] rs[facility] of pressure [facility] Heart rate 2022-07-21 18:00:00 104 /min [facility] Body temperature 2022-07-21 18:00:00 36.56 Nabila [facility] Respiratory rate 2022-07-21 18:00:00 18 /min [facility] Oxygen saturation in 2022-07-21 18:00:00 100 /min [facility] of Arterial blood by [facility] lottie Pulse oxim[facility] Branch Body height 2022-07-21 15:36:00 167.6 cm [facility] Body weight 2022-07-21 15:36:00 89.359 kg [facility] BMI 2022-07-21 15:36:00 31.80 kg/m2 [facility] Systolic blood 2022-07-17 17:09:00 103 mm[Hg] [facility] of pressure [facility] Diastolic blood 2022-07-17 17:09:00 51 mm[Hg] [facility] of pressure [facility] Heart rate 2022-07-17 17:09:00 82 /min [facility] Body temperature 2022-07-17 17:09:00 36.56 Nabila [facility] Respiratory rate 2022-07-17 17:09:00 16 /min [facility] Oxygen saturation in 2022-07-17 17:09:00 99 /min [facility] of Arterial blood by [facility] Pulse oximetry Branch Body height 2022-07-17 15:58:00 167.6 cm 5' 6" [facility] Body weight 2022-07-17 15:58:00 87.816 kg 193.6lb [facility] BMI 2022-07-17 15:58:00 31.25 kg/m2 [facility] Systolic blood 2022-07-11 06:00:00 121 mm[Hg] Un[facility]ity of pressure [facility] Diastolic blood 2022-07-11 06:00:00 68 mm[Hg] [facility] rs[facility] of pressure [facility] Heart rate 2022-07-11 06:00:00 100 /min [facility] Oxygen saturation in 2022-07-11 06:00:00 99 /min [facility] of Arterial blood by [facility] Pulse oximetry Branch Body temperature 2022-07-11 04:00:00 36.78 Nabila [facility] Respiratory rate 2022-07-11 04:00:00 18 /min [facility] Body height 2022-07-11 04:00:00 167.6 cm [facility] Body weight 2022-07-11 04:00:00 89.313 kg [facility] BMI 2022-07-11 04:00:00 31.78 kg/m2 [facility] Systolic blood 2022-07-08 19:21:00 133 mm[Hg] [facility] of pressure [facility] Diastolic blood 2022-07-08 19:21:00 79 mm[Hg] [facility] rs[facility] of pressure [facility] Heart rate 2022-07-08 19:21:00 94 /min [facility] Body temperature 2022-07-08 19:21:00 36.22 Nabila [facility] Respiratory rate 2022-07-08 19:21:00 18 /min [facility] Body height 2022-07-08 19:21:00 167.6 cm [facility] Body weight 2022-07-08 19:21:00 86.909 kg [facility] BMI 2022-07-08 19:21:00 30.93 kg/m2 [facility] Heart rate 2022-07-06 09:15:00 96 /min [facility] Oxygen saturation in 2022-07-06 09:15:00 99 /min [facility] of Arterial blood by [facility] Pulse oximetry Branch Systolic blood 2022-07-06 05:20:00 121 mm[Hg] Un[facility]ity of pressure [facility] Diastolic blood 2022-07-06 05:20:00 70 mm[Hg] [facility] rs[facility] of pressure [facility] Body temperature 2022-07-06 05:20:00 37.06 Nabila [facility] Body height 2022-07-06 05:20:00 167.6 cm [facility] Body weight 2022-07-06 05:20:00 86.637 kg [facility] BMI 2022-07-06 05:20:00 30.83 kg/m2 [facility] Respiratory rate 2022-07-06 05:01:00 16 /min [facility] Systolic blood 2022-06-23 19:46:00 135 mm[Hg] [facility] pressure [facility] Diastolic blood 2022-06-23 19:46:00 85 mm[Hg] Unive [facility]ity of pressure [facility] Heart rate 2022-06-23 19:46:00 102 /min [facility] Body temperature 2022-06-23 19:46:00 36.11 Nabila [facility] Respiratory rate 2022-06-23 19:46:00 18 /min [facility] Body height 2022-06-23 19:46:00 167.6 cm [facility] Body weight 2022-06-23 19:46:00 85.004 kg [facility] BMI 2022-06-23 19:46:00 30.25 kg/m2 [facility] Systolic blood 2022-06-09 18:04:00 110 mm[Hg] [facility] pressure [facility] Diastolic blood 2022-06-09 18:04:00 60 mm[Hg] [facility] pressure [facility] Heart rate 2022-06-09 17:59:00 112 /min [facility] Body temperature 2022-06-09 17:57:00 36.28 Nabila [facility] Respiratory rate 2022-06-09 17:57:00 18 /min [facility] Body height 2022-06-09 17:57:00 170.2 cm [facility] Body weight 2022-06-09 17:57:00 85.911 kg [facility] BMI 2022-06-09 17:57:00 29.66 kg/m2 [facility] Body temperature 2022-06-02 15:34:00 36.72 Nabila [facility] Body weight 2022-06-02 15:34:00 85.73 kg [facility] BMI 2022-06-02 15:34:00 30.51 kg/m2 [facility] Systolic blood 2022-05-26 15:34:00 111 mm[Hg] [facility] pressure [facility] Diastolic blood 2022-05-26 15:34:00 71 mm[Hg] [facility] pressure [facility] Heart rate 2022-05-26 15:34:00 87 /min [facility] Body temperature 2022-05-26 15:34:00 36.33 Nabila [facility] Respiratory rate 2022-05-26 15:34:00 18 /min [facility] Body height 2022-05-26 15:34:00 167.6 cm [facility] Body weight 2022-05-26 15:34:00 85.73 kg [facility] BMI 2022-05-26 15:34:00 30.51 kg/m2 [facility] Body temperature 2022-05-19 15:46:00 36.17 Nabila [facility] Body weight 2022-05-19 15:46:00 85.095 kg [facility] BMI 2022-05-19 15:46:00 30.28 kg/m2 [facility] Systolic blood 2022-05-12 20:15:00 122 mm[Hg] [facility] Diastolic blood 2022-05-12 20:15:00 67 mm[Hg] [facility] Heart rate 2022-05-12 20:15:00 85 /min [facility] Body temperature 2022-05-12 20:15:00 35.83 Nabila [facility] Respiratory rate 2022-05-12 20:15:00 18 /min [facility] Body height 2022-05-12 20:15:00 167.6 cm [facility] Body weight 2022-05-12 20:15:00 83.961 kg [facility] BMI 2022-05-12 20:15:00 29.88 kg/m2 [facility] Body temperature 2022-05-05 16:37:00 36.56 Nabila [facility] Body weight 2022-05-05 16:37:00 83.553 kg [facility] Systolic blood 2022-04-28 17:19:00 128 mm[Hg] [facility] Diastolic blood 2022-04-28 17:19:00 73 mm[Hg] [facility] Heart rate 2022-04-28 17:19:00 87 /min [facility] Body temperature 2022-04-28 17:19:00 37.06 Nabila [facility] Respiratory rate 2022-04-28 17:19:00 18 /min [facility] Body weight 2022-04-28 17:19:00 82.736 kg [facility] Body temperature 2022-04-21 16:16:00 36.61 Nabila [facility] Body weight 2022-04-21 16:16:00 81.421 kg [facility] BMI 2022-04-21 16:16:00 28.97 kg/m2 [facility] Systolic blood 2022-04-14 16:55:00 119 mm[Hg] [facility] Diastolic blood 2022-04-14 16:55:00 72 mm[Hg] [facility] Heart rate 2022-04-14 16:55:00 75 /min [facility] Body temperature 2022-04-14 16:55:00 36.78 Nabila [facility] Respiratory rate 2022-04-14 16:55:00 16 /min [facility] Body height 2022-04-14 16:55:00 167.6 cm [facility] Body weight 2022-04-14 16:55:00 79.742 kg [facility] BMI 2022-04-14 16:55:00 28.37 kg/m2 [facility] Systolic blood 2022-04-07 19:07:00 122 mm[Hg] [facility] Diastolic blood 2022-04-07 19:07:00 76 mm[Hg] [facility] Heart rate 2022-04-07 19:07:00 95 /min [facility] Body temperature 2022-04-07 19:07:00 37.06 Nabila [facility] Respiratory rate 2022-04-07 19:07:00 20 /min [facility] Body weight 2022-04-07 19:07:00 78.835 kg [facility] Systolic blood 2022-03-31 15:59:00 118 mm[Hg] [facility] Diastolic blood 2022-03-31 15:59:00 76 mm[Hg] [facility] Heart rate 2022-03-31 15:59:00 82 /min [facility] Body temperature 2022-03-31 15:59:00 37.11 Nabila [facility] Respiratory rate 2022-03-31 15:59:00 18 /min [facility] Body height 2022-03-31 15:59:00 167.6 cm [facility] Body weight 2022-03-31 15:59:00 76.885 kg [facility] BMI 2022-03-31 15:59:00 27.36 kg/m2 [facility] Body temperature 2022-03-24 15:55:00 36.61 Nabila [facility] Respiratory rate 2022-03-24 15:55:00 18 /min [facility] Body weight 2022-03-24 15:55:00 75.796 kg [facility] Systolic blood 2022-03-10 17:15:00 116 mm[Hg] [facility] Diastolic blood 2022-03-10 17:15:00 74 mm[Hg] [facility] Heart rate 2022-03-10 17:15:00 77 /min [facility] Body temperature 2022-03-10 17:15:00 36.94 Nabila [facility] Respiratory rate 2022-03-10 17:15:00 20 /min [facility] Body height 2022-03-10 17:15:00 167.6 cm [facility] Body weight 2022-03-10 17:15:00 72.938 kg [facility] BMI 2022-03-10 17:15:00 25.95 kg/m2 [facility] Systolic blood 2022-02-24 16:18:00 109 mm[Hg] [facility] Diastolic blood 2022-02-24 16:18:00 68 mm[Hg] [facility] Heart rate 2022-02-24 16:18:00 83 /min [facility] Body temperature 2022-02-24 16:18:00 36.44 Nabila [facility] Respiratory rate 2022-02-24 16:18:00 18 /min [facility] Body height 2022-02-24 16:18:00 167.6 cm [facility] Body weight 2022-02-24 16:18:00 69.673 kg [facility] BMI 2022-02-24 16:18:00 24.79 kg/m2 [facility] Systolic blood 2022-02-10 19:32:00 135 [...] 2022-02-10 19:32:00 71.215 kg [facility] BMI 2022-02-10 19:32:00 25.34 kg/m2 [facility] Systolic blood 2022-01-27 15:32:00 127 mm[Hg] [facility] Diastolic blood 2022-01-27 15:32:00 77 mm[Hg] [facility] Heart rate 2022-01-27 15:32:00 99 /min [facility] Body temperature 2022-01-27 15:32:00 36.22 Nabila [facility] Respiratory rate 2022-01-27 15:32:00 20 /min [facility] Body height 2022-01-27 15:32:00 167.6 cm [facility] Body weight 2022-01-27 15:32:00 70.988 kg [facility] BMI 2022-01-27 15:32:00 25.26 kg/m2 [facility] Systolic blood 2021-12-23 14:24:00 118 mm[Hg] [facility] Diastolic blood 2021-12-23 14:24:00 77 mm[Hg] [facility] Heart rate 2021-12-23 14:24:00 87 /min [facility] Body temperature 2021-12-23 14:24:00 37 Nabila [facility] Respiratory rate 2021-12-23 14:24:00 18 /min [facility] Body height 2021-12-23 14:24:00 167.6 cm [facility] Body weight 2021-12-23 14:24:00 70.761 kg [facility] BMI 2021-12-23 14:24:00 25.18 kg/m2 [facility] Systolic blood 2021-12-09 14:24:00 118 mm[Hg] [facility] Diastolic blood 2021-12-09 14:24:00 79 mm[Hg] [facility] Heart rate 2021-12-09 14:24:00 88 /min [facility] Body temperature 2021-12-09 14:24:00 36.67 Nabila [facility] Respiratory rate 2021-12-09 14:24:00 16 /min [facility] Body height 2021-12-09 14:24:00 167.6 cm [facility] Body weight 2021-12-09 14:24:00 72.53 kg [facility] BMI 2021-12-09 14:24:00 25.81 kg/m2 [facility] Oxygen saturation in 2021-12-09 14:24:00 97 /min [facility] Arterial blood by [facility] Pulse oximetry Branch Systolic blood 2021-10-12 18:17:00 124 mm[Hg] [facility] Diastolic blood 2021-10-12 18:17:00 90 mm[Hg] [facility] Heart rate 2021-10-12 18:17:00 112 /min [facility] Body temperature 2021-10-12 18:17:00 37.11 Nabila [facility] Respiratory rate 2021-10-12 18:17:00 20 /min [facility] Body height 2021-10-12 18:17:00 167.6 cm [facility] Body weight 2021-10-12 18:17:00 68.04 kg [facility] BMI 2021-10-12 18:17:00 24.21 kg/m2 [facility] Procedures Procedure Date / Time Performing Clinician Source Performed PROTEIN CREAT RATIO 2022-07-29 05:00:00 [facility] CBC WITH DIFF 2022-07-25 10:37:00 Laney Blancosol [facility] COMP. METABOLIC PANEL 2022-07-25 03:06:00 Laney Blancosol [facility] ([id number]) [facility] CBC WITH DIFF 2022-07-25 03:06:00 Francis Kasey [facility] PROTEIN CREAT RATIO 2022-07-25 03:06:00 [facility] CBC WITH DIFF 2022-07-22 08:27:00 Adum, Hetal Fabiano [facility] CBC WITH DIFF 2022-07-22 08:27:00 Adum, Hetal Mario [facility] SECTION 2022-07-21 18:36:00 Adum, Hetal Mario [facility] SECTION 2022-07-21 18:36:00 Adum, Hetal Mario [facility] URINE DRUG (IMMUNOASSAY) 2022-07-21 18:12:00 Adum, Hetal Mario [facility] SCREEN W/O REFLEX URINE DRUG (IMMUNOASSAY) 2022-07-21 18:12:00 Adum, Hetal Mario [facility] SCREEN W/O REFLEX CBC WITH DIFF 2022-07-21 16:52:00 Adum, Hetal Mario [facility] HEPATITIS B SURFACE 2022-07-21 16:52:00 Adum, Hetal Mario [facility] ANTIGEN [facility] HB ABO GROUPING 2022-07-21 16:52:00 Adum, Hetal Mario [facility] ADC OR KATALINA ONLY - 2022-07-21 16:52:00 [facility] HIV 1/2 AG-AB WITH 2022-07-21 16:52:00 Adum, Hetal Mario [facility] REFLEX [facility] CBC WITH DIFF 2022-07-21 16:52:00 Adum, Hetal Mario [facility] HEPATITIS B SURFACE 2022-07-21 16:52:00 Adum, Hetal Mario [facility] ANTIGEN [facility] HB ABO GROUPING 2022-07-21 16:52:00 Adum, Hetal Mario [facility] ADC OR KATALINA ONLY - 2022-07-21 16:52:00 Adum, Hetal Mario [facility] RPR Medical Branch HIV 1/2 AG-AB WITH 2022-07-21 16:52:00 Adum, Hetal Mario [facility] REFLEX [facility] RHO (D) IMMUNE GLOBULIN 2022-07-21 16:52:00 Tony Blanco [facility] ONLY - FERN TEST 2022-07-21 16:06:00 Adum, Hetal Mario [facility] ONLY - FERN TEST 2022-07-21 16:06:00 Adum, Hetal Mario [facility] CONSENT/REFUSAL FOR 2022-07-21 15:31:39 Doctor Unassigned, No [facility] [place] [facility] CONSENT/REFUSAL FOR 2022-07-21 15:31:39 Doctor Unassigned, No [facility] [place] [facility] Name [facility] URINALYSIS 2022-07-17 16:35:00 Adum, Hetal Mario [facility] ONLY - FERN TEST 2022-07-17 16:35:00 Adum, Hetal Mario [facility] URINALYSIS 2022-07-11 06:30:[address] [facility] ADC CLC OR LCC ONLY - 2022-07-11 06:30:00 Austin Arzola [facility] WET PREP [facility] NOTICE OF PRIVACY 2022-07-11 03:43:30 Doctor Unassigned, No [facility] PRACTICES [facility] CONSENT/REFUSAL FOR 2022-07-11 03:43:01 Doctor Unassigned, No [facility] [place] [facility] ASSIGNMENT OF BENEFITS 2022-07-11 03:42:40 Doctor Unassigned, No [facility] POCT URINALYSIS 2022-07-08 19:23:00 Antonette Solano [facility] L&D VISIT 2022-07-06 05:01:00 Doctor Unassigned, No [facility] (NON-DELIVERED) [facility] ASSIGNMENT OF BENEFITS 2022-07-06 04:55:57 Doctor Unassigned, No [facility] POCT URINALYSIS 2022-06-23 19:48:00 Antonette Solano [facility] POCT URINALYSIS 2022-06-09 18:04:00 Antonette Solano [facility] TDAP VACCINE, >11 YRS, 2022-05-26 15:59:59 Tushar Lan [facility] GLUCOSE 1 HOUR POST 2022-05-12 21:16:00 Tushar Lan [facility] CBC WITH DIFF 2022-05-12 21:16:00 Tushar Lan [facility] POCT URINALYSIS 2022-05-12 20:18:00 Antonette Solano [facility] POCT URINALYSIS 2022-04-28 17:24:00 Antonette Solano [facility] SECOND AND THIRD 2022-04-14 15:44:00 Antonette Solano [facility] TRIMESTER ULTRASOUND Medical [facility] POCT URINALYSIS 2022-03-31 16:02:00 Antonette Solano [facility] POCT URINALYSIS 2022-03-10 00:00:00 Antonette Solano [facility] POCT URINALYSIS 2022-02-24 16:30:00 Antonette Solano [facility] POCT URINALYSIS 2022-02-10 00:00:00 Antonette Solano [facility] POCT URINALYSIS 2022-01-27 15:33:00 Antonette Solano [facility] REPORT OF 2021-12-23 05:01:00 Doctor Unassigned, No [facility] POCT TEST 2021-12-23 00:00:00 Antonette [facility]ano [facility] POCT URINALYSIS W/O 2021-12-23 00:00:[address] [facility] SPECIFIC [facility] US FIRST 2021-12-14 21:24:20 Sara Snyder [facility] TRIMESTER LESS THAN 14 Medical [facility] ranch WEEKS WITH TRANSVAGINAL ASSIGNMENT OF BENEFITS 2021-12-14 19:54:43 Doctor Unassigned, No [facility] POCT TEST 2021-12-09 00:00:00 Sara Snyder [facility] POCT TEST 2021-10-12 18:22:00 Tushar Lan [facility] Encounters Start End Encounter Admission Attending Care Care Encounter Source Date/Time Date/Time Type Type Clinicians Facility Department ID 2022-07-24 Outpatient P KASEY BLANCO [facility] ELIAZAR [id number] Univers 07:39:17 [facility]-11 Outpatient X [facility] ELIAZAR [id number] Univers 03:19:31 ity [facility] 2020-12-27 Emergency [facility] [id number] Univers 22:10:[address] [facility] 2020-12-27 Emergency [facility] [id number] Univers 22:10:57 ity [facility] 2020-12-27 Outpatient P LAMB ELIAZAR [id number] Univers 19:19:43 ity [facility] 2020-12-27 Outpatient P LAMB ELIAZAR [id number] Univers [facility]:19[facility] 2022-09-07 2022-09-07 Outpatient R RIKY [facility] [id number] Univers 15:15:00 15:15:[address] [facility] 2022-08-29 2022-08-[address] [facility] 1.2.840.114 [id number] Univers 00:00:00 00:00:00 Tushar C [employer] 350.1.13.10 ity of REGIONAL 4.2.7.2.686 Jamal as MATERNAL [id number] [facility] & CHILD [address] [place] [address] 2022-08-29 2022-08-[address] [facility] 1.2.840.114 [id number] Univers 00:00:00 00:00:00 Tushar C [employer] 350.1.13.10 ity of REGIONAL 4.2.7.2.686 Jamal as MATERNAL [id number] [address] 2022-08-12 2022-08-12 Outpatient R RIKY [facility] [id number] Univers 10:00:00 11:16:[address] [facility] 2022-08-12 2022-08-12 [facility] [id number] [id number] Univers 10:00:00 11:16:38 Tushar C [employer] 350.1.13.10 ity of Visit REGIONAL 4.2.7.2.686 Jamal as MATERNAL [id number] [address] 2022-08-01 2022-08-01 Nurse Visit, Ang-Rmchp Nurse [facility] 1.2 .840.114 [id number] Univers 09:30:00 10:21:06 Visit Brynmanny Tushar C [employer] 350.1.13. 10 ity of REGIONAL 4.2.7.2.686 Jamal as MATERNAL [id number] [facility] & [address] 2022-08-01 2022-08-01 Outpatient R RIKY [facility] [id number] Univers 09:30:00 09:30:00 TUSHAR itspenser o f [facility] 2022-07-28 2022-07-29 Outpatient P BRAD [facility] ELIAZAR [id number] Univers 20:06:00 12:45:[address] [facility] 2022-07-28 2022-07-29 [facility] 1.2 .840.114 [id number] Univers 20:06:00 12:45:00 Encounter Hetal Norris 350.1.13.10 ity [facility] 4.2.7.2.686 [facility] [id number] [place] [address] [place] 2022-07-27 2022-07-27 Nurse MOSHE Nova 1.2.840.114 [id number] Univers 00:00:00 00:00:00 Triage Patt ESPINAL 350.1.13.10 it y of [facility] 4.2.7.2.686 Jamal as [id number] [address] 2022-07-26 2022-07-26 [facility] 1.2.840.114 [id number] Univers 00:00:00 00:00:00 Tushar Lund [employer] 350.1.13.10 ity [facility] 4.2.7.2.686 Jamal as MATERNAL [id number] [facility] ical & CHILD [address] [place] [address] 2022-07-24 2022-07-25 Outpatient [facility] [id number] Univers 09:28:00 12:30:00 KASEY BLANCO ity [facility] 2022-07-24 2022-07-25 [facility] 1.2.840.114 1 [id number] Univers 09:28:00 12:30:00 Encounter Kasey taylor 350.1.13.10 ity [facility] 4.2.7.2.686 [facility] [id number] [address] 2022-07-21 2022-07-23 Inpatient X [facility], [facility] ELIAZAR [id number] Univers 10:37:00 13:45:[address] [facility] 2022-07-21 2022-07-23 [facility] 1.2.840.114 [id number] Univers 10:37:00 13:45:00 Encounter Hetal Mario PINA 350.1.13.10 ity [facility] 4.2.7.2.686 [facility] [id number] [place] [address] [place] 2022-07-21 2022-07-21 Surgery Adum, [facility] 1.2.840.114 [id number] Univers 12:35:00 14:27:00 Hetal Mario [place] 350.1.13.10 ity of [facility] 4.2.7.2.686 [facility] [id number] [facility] 013 [place] 2022-07-21 2022-07-21 Outpatient R AKINSIPE, [facility] [id number] Univers 10:45:00 10:45:00 TUSHAR ity o f [facility] 2022-07-19 2022-07-19 [facility] 1.2.840.114 [id number] Univers 00:00:00 00:00:00 Management Hetal PEGUEROTON 350.1.13.10 ity of [place] 4.2.7.2.686 [facility] PROFESSIO [id number] Ut dical [address] 2022-07-17 2022-07-17 Outpatient X ADUM, [facility] ELIAZAR [id number] Univers 10:38:00 12:40:[address] [facility] 2022-07-17 2022-07-17 Emergency Ad, [facility] 1.2.560.351 [id number] Univers 10:38:00 12:40:00 Hetal PEGUEROTON 350.1.13.10 ity of [place] 4.2.7.2.[address] [place] [id number] 2022-07-10 2022-07-11 Outpatient X ARZOLA AUSTIN [facility] ELIAZAR [id number] Univers 22:46:00 03:10:[address] [facility] 2022-07-10 2022-07-11 Emergency Arzola Austin [facility] 1.2.840.114 [id number] Univers 22:46:00 03:10:00 Cam [place] 350.1.13.10 i ty of [facility] 4.2.7.2.686 [facility] [id number] [address] 2022-07-11 2022-07-[address] [facility] 1.2.840.114 10 [id number] Univers 00:00:00 00:00:00 Tushar C [employer] 350.1.13.10 ity of REGIONAL 4.2.7.2.686 Jamal as MATERNAL [id number] [facility] ical & CHILD [address] [place] [address] 2022-07-08 2022-07-08 Outpatient R [facility] [id number] Univers 14:15:00 14:41:47 TUSHAR ity o f [facility] 2022-07-08 2022-07-[address] [facility] [id number] [id number] Univers 14:15:00 14:41:47 Tushar C [employer] 350.1.13.10 ity of Visit REGIONAL 4.2.7.2.686 Jamal as MATERNAL [id number] [facility] & CHILD [address] [place] [address] 2022-07-06 2022-07-06 Outpatient P ADUM, [facility] ELIA[place]AR [id number] Univers 00:06:00 04:42:[address] [facility] 2022-07-06 2022-07-06 [facility] 1.2.150.317 [id number] Univers 00:06:00 04:42:00 Hetal HELLER 350.1.13.10 ity of [place] 4.2.7.2.686 [place] [facility] [id number] [facility] 083 [place] 2022-07-06 2022-07-06 Orders Doctor MOSHE 1.2.840.114 [id number] Univers 00:00:00 00:00:00 Only Unassigned, TEDDY 350.1.13.10 ity of [place] [facility] 4.2.7.2.686 Jamal as [id number] [facility] 009 [place] 2022-07-05 2022-07-05 Orders Doctor MOSHE 1.2.840.114 [id number] Univers 00:00:00 00:00:00 Only Unassigned, TEDDY 350.1.13.10 ity of [facility] 4.2.7.2.686 Jamal as [id number] [address] 2022-06-23 2022-06-23 Outpatient R AKINSIPE, [facility] [id number] Univers 14:45:00 15:08:35 TUSHAR ity o [facility] 2022-06-23 2022-06-23 Routine Akinsipe, [facility] 1.2.370.530 [id number] Univers 14:45:00 15:08:35 Tushar C [employer] 350.1.13.10 ity of Visit REGIONAL 4.2.7.2.686 Jamal as MATERNAL [id number] [facility] & CHILD [address] [place] [address] 2022-06-16 2022-06-16 Outpatient R AKINSIPE, [facility] [id number] Univers 13:00:00 13:00:00 TUSHAR rizo o [facility] 2022-06-09 2022-06-09 Outpatient R AKINSIPE, [facility] [id number] Univers 12:45:00 13:24:30 TUSHAR rizo o [facility] 2022-06-09 2022-06-09 Routine Akinsipe, [facility] 1.2.075.983 [id number] Univers 12:45:00 13:24:30 Tushar C [employer] 350.1.13.10 ity of Visit REGIONAL 4.2.7.2.686 Jamal as MATERNAL [id number] [address] 2022-06-02 2022-06-02 [facility] 1.2 .840.114 [id number] Univers 10:30:00 10:42:00 Visit Akinmanny Tushar C [employer] 350.1.13. 10 ity of REGIONAL 4.2.7.2.686 Jamal as MATERNAL [id number] [facility] & [address] 2022-06-02 2022-06-02 Outpatient R AKINSIPE, [facility] [id number] Univers 10:30:00 10:30:00 TUSHAR ity o [facility] 2022-05-26 2022-05-26 Outpatient R AKINSIPE, [facility] [id number] Univers 10:30:00 11:07:20 TUSHAR ity o f [facility] 2022-05-26 2022-05-26 Routine Akinsipe, [facility] 1.2.379.221 [id number] Univers 10:30:00 11:07:20 Tushar C [employer] 350.1.13.10 ity of Visit REGIONAL 4.2.7.2.686 Jamal as MATERNAL [id number] [facility] ical & CHILD [address] [place] [address] 2022-05-19 2022-05-19 Nurse Visit, Satishp Nurse [facility] 1.2 .840.114 [id number] [facility] 10:30:00 11:03:10 Visit Akinsijohnathan Tushar C [employer] 350.1.13. 10 ity of REGIONAL 4.2.7.2.686 Jamal as MATERNAL [id number] [facility] & CHILD [address] [place] [address] 2022-05-19 2022-05-19 Outpatient R AKINSIPE, [facility] [id number] Univers 10:30:00 10:30:00 [address] ity o f [facility] 2022-05-12 2022-05-12 Outpatient R AKINSIPE, [facility] [id number] Univers 14:45:00 15:46:[address] o f [facility] 2022-05-12 2022-05-12 Routine Akinsipe, [facility] 1.2.674.831 [id number] Univers 14:45:00 15:46:52 Tushar C DRAFTER [employer] DES[employer] LAYOUT 350.1.13.10 ity of Visit REGIONAL 4.2.7.2.686 Jamal as MATERNAL [phone] [facility] ical & CHILD [address] [place] [address] 2022-05-05 2022-05-05 [facility] 1.2 .840.114 [id number] Univers 10:30:00 10:45:51 Visit Akinsijohnathan Tushar C DRAFTER [employer] DES[employer]AYOUT 350.1.13. 10 ity of REGIONAL 4.2.7.2.686 Jamal as MATERNAL [phone] [facility] ical & CHILD [address] [place] [address] 2022-05-05 2022-05-05 Outpatient R AKINSIPE, [facility] [id number] Univers 10:30:00 10:30:00 TUSHAR ity o f [facility] 2022-04-28 2022-04-28 Outpatient R AKINSIPE, [facility] [id number] Univers 11:00:00 11:44:12 [address] ity o f [facility] 2022-04-28 2022-04-28 Routine Akinsipe, [facility] 1.2.201.110 [id number] Univers 11:00:00 11:44:12 Tushar C [employer]RAFTER [employer]AYOUT 350.1.13.10 ity of Visit REGIONAL 4.2.7.2.686 Jamal as MATERNAL [phone] [facility] & CHILD [address] [place] [address] 2022-04-21 2022-04-21 Nurse Visit, WestRmchp Nurse [facility] 1.2 .840.114 [id number] Univers 10:00:00 10:30:36 Visit Antonette Solano [employer]RAFTER [employer]AY[employer] 350.1.13.1 0 ity of REGIONAL 4.2.7.2.686 Jamal as MATERNAL [phone] [facility] & CHILD [address] [place] [address] 2022-04-21 2022-04-21 Outpatient R ENE [facility] [id number] Univers 10:00:00 10:00:00 ANTONETTE [facility] 2022-04-14 2022-04-14 Outpatient R ASYA [facility] [id number] Univers 09:15:00 11:39:36 SHEREEN [facility] 2022-04-14 2022-04-14 Routine Risk, Pii-Nvuof-Tr/High [facility] 1. 2.840.114 [id number] Univers 09:15:00 11:39:36 Shereen Travis [employer]TER [employer] 350.1.13.10 ity of Visit REGIONAL 4.2.7.2.686 Jamal as MATERNAL [id number] [facility] ical & CHILD [address] [place] [address] 2022-04-14 2022-04-14 Nurse Visit, Ang-Rmchp Nurse [facility] 1.2 .840.114 [id number] Univers 10:30:00 10:45:00 Visit Tushar Lan [employer] 350.1.13. 10 ity of REGIONAL 4.2.7.2.686 Jamal as MATERNAL [phone] [facility] & CHILD [address] [place] [address] 2022-04-14 2022-04-14 Make Up Artist Ultrasound, Leonardo [facility] 1.2 .840.114 [id number] Univers 09:30:00 10:39:28 Visit Shereen Travis [employer]RAFTER [employer]AYOUT 350.1.13.10 ity of REGIONAL 4.2.7.2.686 Jamal as MATERNAL [phone] [facility] & CHILD [address] [place] [address] 2022-04-14 2022-04-14 Outpatient R RIKY [facility] [id number] [facility] 10:30:00 10:30:00 TUSHAR katz [facility] 2022-04-14 2022-04-14 Case Ene [facility] 1.2.840.114 [id number] Univers 00:00:00 00:00:00 Management Antonette Millard [employer]RAFTER [employer]AYOUT 350.1.13.10 ity of REGIONAL 4.2.7.2.686 Jamal as MATERNAL [id number] [facility] & CHILD [address] [place] [address] 2022-04-07 2022-04-07 Nurse Visit, Neftali Nurse [facility] 1.2 .840.114 [id number] Univers 13:00:00 13:13:39 Visit Tushar Lan [employer]RAFTER [employer]OUT 350.1.13. 10 ity of REGIONAL 4.2.7.2.686 Jamal as MATERNAL [id number] [facility] CHILD [address] [place] [address] 2022-04-07 2022-04-07 Outpatient R RIKY [facility] [id number] Univers 13:00:00 13:00:[address] [facility] 2022-04-07 2022-04-07 Telephone Riky [facility] 1.2.840.114 [id number] Univers 00:00:00 00:00:00 Tushar Lund [employer]RAFTER [employer]OUT 350.1.13.10 ity of REGIONAL 4.2.7.2.686 Jamal as MATERNAL [phone] [facility] ical & CHILD [address] [place] [address] 2022-03-31 2022-03-31 Outpatient Angelica CGAE LASOLE [facility] [id number] Univers 09:45:00 10:58:49 EDWIN rizo [facility] 2022-03-31 2022-03-31 Routine Risk, Mft-Dqpgz-Wj/High [facility] 1. 2.840.114 [id number] Univers 09:45:00 10:58:49 Edwin Cage DRAFTER [employer] DES[employer]AYOUT 350.1.13.10 ity of Visit REGIONAL 4.2.7.2.686 Jamal as MATERNAL [id number] [facility] & CHILD [address] [place] [address] 2022-03-24 2022-03-24 Nurse Visit, WestRmchp Nurse [facility] 1.2 .840.114 [id number] Univers 10:00:00 10:00:00 Visit Tushar Lan [employer]RAFTER [employer]AYOUT 350.1.13. 10 ity of REGIONAL 4.2.7.2.686 Jamal as MATERNAL [phone] [facility] & CHILD [address] [place] [address] 2022-03-24 2022-03-24 Outpatient Angelica LAN [facility] [id number] Univers 10:00:00 09:55:[address] o f [facility] 2022-03-15 2022-03-15 Telephone Riky [facility] 1.2.840.114 [id number] Univers 00:00:00 00:00:00 Tushar Lund [employer]RAFTER [employer]AYOUT 350.1.13.10 ity of REGIONAL 4.2.7.2.686 Jamal as MATERNAL [id number] [facility] CHILD [address] [place] [address] 2022-03-10 2022-03-10 Outpatient Angelica CAGE LASOLE [facility] [id number] Univers 11:00:00 11:45:31 EDWIN rizo [facility] 2022-03-10 2022-03-10 Routine Risk, Ykk-Vwoku-Gb/High [facility] 1. 2.840.114 [id number] Univers 11:00:00 11:45:31 Cage, Edwin Blas DRAFTER [employer]OMOT[employer] DES[employer] LAYOUT 350.1.13.10 ity of Visit REGIONAL 4.2.7.2.686 Jamal as MATERNAL [id number] [facility] CHILD [address] [place] [address] 2022-03-10 2022-03-10 Outpatient R [facility] [id number] Univers 10:30:00 10:30:[address] [facility] 2022-03-07 2022-03-07 [facility] 1.2.840.114 [id number] Univers 00:00:00 00:00:00 Tushar Lund DRAFTER [employer]OM[employer] DES[employer]AYOUT 350.1.13.10 ity of REGIONAL 4.2.7.2.686 Jamal as MATERNAL [id number] [facility] CHILD [address] [place] [address] 2022-03-07 2022-03-07 [facility] 1.2.840.114 [id number] Univers 00:00:00 00:00:00 Management Edwin Blas DRAFTER AUTOMOT[employer] DES[employer] LAYOUT 350.1.13.10 ity of REGIONAL 4.2.7.2.686 Jamal as MATERNAL [id number] [facility] CHILD [address] [place] [address] 2022-02-24 2022-02-24 Outpatient Angelica CAGE [facility] [id number] Univers 10:00:00 11:04:18 EDWIN [facility] 2022-02-24 2022-02-24 Routine Risk, Jkt-Mnrox-Ee/High [facility] 1. 2.840.114 [id number] Univers 10:00:00 11:04:18 Cage, Edwin Blas [employer]RAFTER [employer]OM[employer]AYOUT 350.1.13.10 ity of Visit REGIONAL 4.2.7.2.686 Jamal as MATERNAL [id number] [facility] CHILD [address] [place] [address] 2022-02-10 2022-02-10 Outpatient Angelica CAGE [facility] [id number] Univers 13:15:00 13:59:26 [facility] 2022-02-10 2022-02-10 Routine Risk, Nzi-Tpdjl-Sh/High [facility] 1. 2.840.114 [id number] Univers 13:15:00 13:59:26 Edwin Cage DRAFTER AUTOMOT[employer] DES[employer] LAYOUT 350.1.13.10 ity of Visit REGIONAL 4.2.7.2.686 Jamal as MATERNAL [phone] [facility] ical & CHILD [address] [place] [address] 2022-01-27 2022-01-27 Outpatient R FAUZIA [facility] [id number] Univers 09:00:00 10:00:53 [facility] 2022-01-27 2022-01-27 Routine Risk, Zce-Ususe-Yb/High [facility] 1. 2.840.114 [id number] Univers 09:00:00 10:00:53 Edwin Cage DRAFTER AUTOM[employer] DES[employer]AYOUT 350.1.13.10 ity of Visit REGIONAL 4.2.7.2.686 Jamal as MATERNAL [id number] [facility] CHILD [address] [place] [address] 2022-01-10 2022-01-10 Case Ene [facility] 1.2.840.114 [id number] Univers 00:00:00 00:00:00 Management Antonette Millard DRAFTER [employer]OM[employer] DES[employer] LAYOUT 350.1.13.10 ity of REGIONAL 4.2.7.2.686 Jamal as MATERNAL [id number] [facility] & CHILD [address] [place] [address] 2022-01-06 2022-01-06 Make Up Artist [facility] 1.2 .840.114 [id number] Univers 15:15:00 15:45:00 Visit David Cooper DRAFTER AUTOMOT[employer] DES[employer] LAYOUT 350.1.13.10 ity of REGIONAL 4.2.7.2.686 Jamal as MATERNAL [phone] [facility] ical & CHILD [address] [facility] 2022-01-06 2022-01-06 Outpatient P BALBIR [facility] [id number] Univers 15:15:00 15:15:00 [facility] 2021-12-30 2021-12-30 Outpatient SARA TROY [facility] B [id number] Univers 10:00:00 10:00:00 SARA SNYDER itspenser of [facility] 2021-12-23 2021-12-23 Outpatient R ENE [facility] [id number] Univers 09:15:00 10:41:[address] [facility] 2021-12-23 2021-12-23 Initial Provider, Tk-Rmchp Temniya [facility] 1 .2.840.114 [id number] Univers 09:15:00 10:41:00 Niki Ralph R DRAFTER AUTOMOTIVE DESIGN LAYOUT 350.1.13.1 0 ity of Visit Antonette Solano [facility] 4.2.7.2.686 [place] MATERNAL [id number] Med ical & CHILD [address] [place] [address] 2021-12-23 2021-12-23 Orders Doctor MESA 1.2.840.114 [id number] Univers 00:00:00 00:00:00 Only Unassigned, TEDDY 350.1.13.10 ity of [place] [facility] 4.2.7.2.686 Jamal [id number] [facility] [address] 2021-12-17 2021-12-17 Case [facility] 1.2.840.114 [id number] Univers 00:00:00 00:00:00 Management Sara DONALDSON 350.1.13.10 ity of WOMEN'S 4.2.7.2.686 [facility] [phone] [facility] [address] 2021-12-14 2021-12-14 Outpatient R SARA SNYDER [facility] B [id number] Univers 14:55:04 23:59:00 SARA SNYDER ity [facility] 2021-12-14 2021-12-14 [facility] 1.2.840.114 [id number] Univers 14:55:04 23:59:00 Encounter Sara PEGUERORAVI 350.1.13.10 ity of [place] 4.2.7.2.686 [facility] [phone] [facility] [address] 2021-12-14 2021-12-14 Orders Doctor MESA 1.2.840.114 [id number] Univers 00:00:00 00:00:00 Only Unassigned, TEDDY 350.1.13.10 ity of [place] [facility] 4.2.7.2.686 Jamal as [id number] [address] 2021-12-09 2021-12-09 Outpatient R SARA SNYDER [facility] B [id number] Univers 09:00:00 09:43:20 SHAYANSARA AGUILA ity of [facility] 2021-12-09 2021-12-09 [facility] 1.2.840.114 [id number] Univers 09:00:00 09:43:20 aSra DONALDSON 350.1.13.10 i ty of Visit WOMEN'S 4.2.7.2.686 [place] [facility] [phone] [place] [address] [address] 2021-10-12 2021-10-12 [facility] 1.2.824.080 [id number] Univers 13:00:00 13:34:47 Visit Tushar Lund DRAFTER [employer]OMOT[employer] DES[employer] LAYOUT 350.1.13.[address] [facility] 4.2.7.2.686 Jamal as MATERNAL [phone] [facility] ical & CHILD [address] [place] [address] 2021-10-12 2021-10-12 Outpatient R RIKY, [facility] [id number] Univers 13:00:00 13:34:47 TUSHAR riosy o [facility] 2021-10-12 2021-10-12 Outpatient R AKINBERNYPE, [facility] [id number] Univers 13:00:00 13:00:[address] o f [facility] 2021-10-12 2021-10-12 Outpatient R AKINSIPE, [facility] [id number] Univers 13:00:00 13:00:00 TUSHAR riosy o [facility] 2021-10-12 2021-10-12 Orders Doctor MESA 1.2.840.114 [id number] Univers 00:00:00 00:00:00 Only Unassigned, TEDDY 350.1.13.10 ity of [place] [facility] 4.2.7.2.686 Jamal as [id number] [address] 2021-09-28 2021-09-28 Outpatient R RIKY [facility] [id number] Univers 12:45:00 14:31:[address] [facility] 2021-09-28 2021-09-[address] [facility] 1.2.525.207 [id number] Univers 12:45:00 14:31:13 Visit Tushar Lund DRAFTER [employer] DES[employer] LAYOUT 350.1.13.[address] [facility] 4.2.7.2.686 Jamal as MATERNAL [phone] [facility] ical & CHILD [address] [place] [address] 2021-08-05 2021-08-05 Outpatient R JAM SAUNDERS [facility] [id number] Univers 16:15:00 16:15:00 ity [facility] 2021-06-18 2021-06-18 Outpatient R THERON [facility] [id number] Univers 11:00:00 11:00:00 [place] ity [facility] 2021-06-15 2021-06-15 Orders Doctor MOSHE 1.2.840.114 [id number] Univers 00:00:00 00:00:00 Only Unassigned, TEDDY 350.1.13.10 ity of [place] [address]686 Jamal as [id number] [address] 2021-03-09 2021-03-09 [facility] [id number] Univers 14:00:00 14:00:[address] [facility] 2021-03-02 2021-03-[address] [facility] 1.2.840.114 [id number] Univers 00:00:00 00:00:00 Tushar Lund DRAFTER AUTOMOT[employer] DES[employer] LAYOUT 350.1.13.[address] [facility] 4.2.7.2.686 Jamal as MATERNAL [id number] [facility] CHILD [address] [place] [address] 2021-02-12 2021-02-12 Arcadio Peacock [facility] 1.2.479.505 [id number] Univers 00:00:00 00:00:00 Ernesto Rosario DRAFTER AUTOMOTIVE DESIGN LAYOUT 350.1.13.[address] [facility] 4.2.7.2.686 Jamal as MATERNAL [phone] [facility] [address] [place] [address] 2021-02-11 2021-02-11 Refjarocho [facility] 1.2.939.772 [id number] Univers 00:00:00 00:00:00 Tushar C DRAFTER AUTOMOT[employer] DESIGN LAYOUT 350.1.13.10 ity of REGIONAL 42.7.2.686 Jamal as MATERNAL [id number] [facility] [address] [place] [address] 2021-01-27 2021-01-27 Refjarocho [facility] 1.2.105.514 [id number] Univers 00:00:00 00:00:00 Ernesto Rosario DRAFTER AUTOMOTIVE DESIGN LAYOUT 350.1.13.[address] [facility] 4.2.7.2.686 Jamal as MATERNAL [id number] [facility] & [address] 2021-01-18 2021-01-18 Outpatient Angelica PEACOCK [facility] [id number] Univers 16:00:00 16:18:34 ERNESTOSHARMILA riosspenser [facility] 2021-01-18 2021-01-18 Office [facility] 1.2.432.657 [id number] Univers 15:59:18 16:18:34 Visit Ernesto Rosario DRAFTER [employer]OMOT[employer] DES[employer] LAYOUT 350.1.13.[address] [facility] 4.2.7.2.686 Jamal as MATERNAL [id number] [address] 2021-01-18 2021-01-18 Outpatient Angelica [facility] [id number] Univers 16:00:00 16:00:00 ERNESTOSHARMILA riosspenser [facility] 2021-01-15 2021-01-15 Outpatient Angelica [facility] [id number] Univers 13:15:00 13:15:00 ERNESTOSHARMILA riosspenser [facility] 2020-12-11 2020-12-11 Telephone [facility] 1.2.840.114 [id number] Univers 00:00:00 00:00:00 Tushar C DRAFTER AUTOMOTIVE DESIGN LAYOUT 350.1.13.[address] [facility] 42.7.2.686 Jamal as MATERNAL [id number] [facility] & [address] 2020-10-20 2020-10-20 Office [facility] 1.2.840.114 [id number] Univers 13:30:06 14:12:47 Visit Niki Dominguez DRAFTER [employer]OT[employer] DES[employer] LAYOUT 350.1.13.[address] [facility] 4.2.7.2.686 Jamal as MATERNAL [id number] [address] 2020-10-20 2020-10-20 Outpatient R RAMO [facility] [id number] Univers 13:30:00 13:30:00 NIKI rizo o [facility] 2020-10-14 2020-10-14 Outpatient R RIKY [facility] [id number] Univers 15:00:00 15:00:00 TUSHAR darrius o [facility] 2020-10-12 2020-10-12 [facility] 1.2.524.231 [id number] Univers 14:17:44 15:03:31 Visit Tushar Lund DRAFTER [employer] DES[employer] LAYOUT 350.1.13.[address] [facility] 4.2.7.2.686 Jamal as MATERNAL [id number] [address] 2020-10-12 2020-10-12 Outpatient R RIKY, [facility] [id number] Univers 14:30:00 14:30:00 TUSHAR rizo o [facility] 2020-09-28 2020-09-28 Outpatient R RIKY [facility] [id number] Univers 08:30:00 08:30:00 TUSHAR blancay o [facility] 2020-09-28 2020-09-28 Telephone [facility] 1.2.840.114 [id number] Univers 00:00:00 00:00:00 Ernesto Rosario DRAFTER [employer] DES[employer] LAYOUT 350.1.13.10 it y of REGIONAL 4.2.7.2.686 Jamal as MATERNAL [id number] [facility] & [address] 2020-09-25 2020-09-25 Telephone [facility] 1.2.840.114 [id number] Univers 00:00:00 00:00:00 Tushar C DRAFTER AUTOMOT[employer] DES[employer] LAYOUT 350.1.13.10 ity of [place] 4.2.7.2.686 Jamal as MATERNAL [id number] [facility] ical & CHILD [address] [place] [address] 2020-09-24 2020-09-24 Office Riky [facility] 1.2.455.277 [id number] Univers 14:14:05 14:29:05 Visit Tsuhar C DRAFTER [employer] LAYOUT 350.1.13.10 ity of [place] 4.2.7.2.686 Jamal as MATERNAL [id number] [facility] ical & CHILD [address] [place] [address] 2020-09-24 2020-09-24 Outpatient R RIKY [facility] [id number] Univers 14:15:00 14:15:[address] rizo o f [facility] 2020-09-08 2020-09-08 Outpatient Angelica PEACOCK [facility] [id number] Univers 16:00:00 16:00:00 ERNESTO spenser [facility] 2020-08-18 2020-08-18 Routine Riky, [facility] 1.2.883.963 [id number] Univers 13:04:51 13:45:53 Tushar C DRAFTER [employer] LAYOUT 350.1.13.10 ity of Visit REGIONAL 4.2.7.2.686 Jamal as MATERNAL [phone] [facility] & CHILD [address] [place] [address] 2020-08-18 2020-08-18 Outpatient R RIKY [facility] [id number] Univers 13:15:00 13:15:[address]zo o xin [facility] 2020-08-06 2020-08-06 Outpatient Angelica PEACOCK [facility] [id number] Univers 11:00:00 11:00:00 ERNESTO spenser [facility] 2020-08-06 2020-08-06 Nurse Visit, Tk-Rmchp Nurse [facility] 1.2 .840.114 [id number] Univers 08:21:04 09:08:19 Visit Tushar Lan C [employer]RAFTER [employer]AYOUT 350.1.13. 10 ity of [place] 4.2.7.2.686 Jamal as MATERNAL [id number] [facility] CHILD [address] [facility] 2020-08-06 2020-08-06 Outpatient R RIKY [facility] [id number] Univers 09:00:00 09:00:00 TUSHAR ity o f [facility] 2020-08-04 2020-08-04 Telephone Madonna [facility] 1.2.840.114 [id number] Univers 00:00:00 00:00:00 Ernesto Rosario DRAFTER AUTOMOTIVE DESIGN LAYOUT 350.1.13.[address] [facility] 4.2.7.2.686 Jamal as MATERNAL [id number] [facility] ical & CHILD [address] [place] [address] 2020-08-01 2020-08-01 1.2.840.1 1.2.840.114 [id number] Univers 00:00:00 00:00:00 Encounter 02643.1.1 350.1.13.10 ity of 3.104.2.7 4.[place].2.696 [place] .[id number] 570 [facility] 2020-07-26 2020-07-28 [facility] Rosio Breen [facility] 1.2.840.11 4 [id number] Univers 14:30:00 17:45:00 Encounter Austin Arzola 350.1.13.10 ity of [place] 4.2.7.2.686 [facility] [phone] [address] 2020-07-27 2020-07-27 Anesthesia Ida [facility] 1.2.840.114 [id number] Univers 10:49:00 16:19:00 Event Dylan Heller 350.1.13.10 ity of [place] 4.2.7.2.686 [facility] [id number] [address] 2020-07-26 2020-07-26 Anesthesia Maria [facility] 1.2.840.114 [id number] Univers 19:50:09 19:50:09 Event Angelica Heller 350.1.13.10 i ty of [place] 4.2.7.2.686 [facility] [place] [phone] [address] 2020-07-21 2020-07-21 Routine [facility] 1.2.428.512 [id number] [id number] Univers 12:46:13 13:17:55 Ernesto N DRAFTER [employer] DES[employer] LAYOUT 350.1.13.10 i ty of Visit [facility] 4.2.7.2.686 Jamal as MATERNAL [id number] [facility] & CHILD [address] [place] [address] 2020-07-21 2020-07-21 Outpatient Angelica [facility] 88813 [id number] Univers 12:45:00 12:45:00 ERNESTOSHARMILA rizo [facility] 2020-07-12 2020-07-12 [facility] 1.2.840.114 [id number] Univers 02:00:00 03:20:00 Encounter Hetal Heller 350.1.13.10 ity [facility] 4.2.7.2.686 [place] [facility] [phone] [facility] [address] [place] 2020-07-07 2020-07-07 Routine [facility] 1.2.968.022 [id number] 5846 Univers 10:39:36 11:15:55 Ernesto N DRAFTER [employer] DES[employer]AY[employer] 350.1.13.10 i ty of Visit [facility] 4.2.7.2.686 Jamal as MATERNAL [phone] [facility] & [address] 2020-07-07 2020-07-07 [facility] [id number] Univers 10:45:00 10:45:00 ERNESTOSHARMILA rizo [facility] 2020-06-26 2020-06-26 Telephone [facility] 1.2.840.114 [id number] Univers 00:00:00 00:00:00 Tushar Lund [employer] 350.1.13.[address] [facility] 4.2.7.2.686 Jamal as MATERNAL [phone] [facility] & [address] 2020-06-23 2020-06-23 Routine [facility] 1.2.797.822 [id number] Univers 14:10:30 14:38:56 Ernesto N [employer] 350.1.13.10 i ty of Visit [facility] 4.2.7.2.686 Jamal as MATERNAL [phone] [facility] & CHILD [address] [place] [address] 2020-06-23 2020-06-23 Outpatient R [facility] [id number] Univers 14:15:00 14:15:00 ERNESTO rizo [facility] 2020-06-11 2020-06-11 Orders Doctor MOSHE 1.2.840.114 [id number] Univers 00:00:00 00:00:00 Only Unassigned, TEDDY 350.1.13.10 ity of [place] [facility] 4.2.7.2.686 Jamal as [phone] [address] 2020-06-09 2020-06-09 Routine Niki Ralph [facility] 1.2.840 .114 [id number] Univers 14:16:51 14:55:17 Ernesto Peacock [employer] 350.1.13.10 ity of Visit REGION[facility] 4.2.7.2.686 Jamal as MATERNAL [phone] [facility] & [address] 2020-06-09 2020-06-09 Outpatient R [facility] [id number] Univers 14:15:00 14:15:00 ERNESTO rizo [facility] 2020-06-02 2020-06-02 Orders Doctor MOSHE 1.2.840.114 [id number] Univers 00:00:00 00:00:00 Only Unassigned, TEDDY 350.1.13.10 ity of [place] [facility] 4.2.7.2.686 Jamal as [phone] [address] 2020-06-01 2020-06-01 [facility] 1.2.499.006 [id number] Univers 00:00:00 00:00:00 Tushar Lund [employer]AY[employer] 350.1.13.10 ity of [place]ION[place] 4.2.7.2.686 Jamal as MATERNAL [phone] [facility] & [address] 2020-05-21 2020-05-21 Make Up Artist Lab, Ang-Rmchp [facility] 1.2.840. 114 [id number] Univers 12:58:26 13:13:26 Visit Tushar Lan [employer]RAF[employer]AY[employer] 350.1.13. 10 ity of [place]ION[place] 4.2.7.2.686 Jamal as MATERNAL [id number] [facility] & [address] 2020-05-21 2020-05-21 Outpatient R RIKY [facility] [id number] Univers 13:00:00 13:00:[address] [facility] 2020-05-19 2020-05-19 Routine [facility] 1.2.431.999 [id number] Univers 12:45:26 13:11:32 Ernesto Rosario DRAFTER [employer] DES[employer] LAYOUT 350.1.13.10 i ty of Visit [facility] 4.2.7.2.686 Jamal as MATERNAL [id number] [address] 2020-05-19 2020-05-19 [facility] 92896 [id number] Univers 12:45:00 12:45:00 ERNESTO rizo [facility] 2020-05-19 2020-05-19 [facility] 1.2.840.114 [id number] Univers 00:00:00 00:00:00 Outreach Jeffery PRIMARY 350.1.13.10 i ty of [facility] 4.2.7.2.686 Jamalgeorgiana WHITFIELDPAMELA [id number] [address] 2020-04-23 2020-04-23 [facility]ine [facility] 1.2.261.887 [id number] Univers 15:54:18 16:11:16 Ernesto Rosario [employer]RAFTER [employer] DES[employer]AYOUT 350.1.13.10 i ty of Visit [facility] 4.2.7.2.686 Jamal as MATERNAL [phone] [facility] & CHILD [address] [place] [address] 2020-04-23 2020-04-23 Outpatient Angelica PEACOCK [facility] [id number] Univers 16:00:00 16:00:00 ERNESTO rizo [facility] 2020-04-14 2020-04-14 Outpatient [facility] 71696 [id number] Univers 12:45:00 12:45:00 [facility] 2020-04-09 2020-04-09 Make Up Artist Ultrasound, [facility] 1.2 .840.114 [id number] Univers 13:55:54 14:54:41 Visit Radha Charlton [employer]RAF[employer]AYOUT 350.1.13.[address] [facility] 4.2.7.2.686 Jamal as MATERNAL [id number] Med ical & CHILD 369 [facility] 2020-04-09 2020-04-09 Outpatient P [facility] [id number] Univers 14:00:00 14:00:[address] [facility] 2020-04-07 2020-04-07 Telephone [facility] 1.2.840.114 [id number] Univers 00:00:00 00:00:00 Ernesto Rosario DRAFTER [employer]OMOT[employer] DES[employer] LAYOUT 350.1.13.[address] [facility] 4.2.7.2.686 Jamal as MATERNAL [id number] Med ical & CHILD [address] [place] [address] 2020-03-26 2020-03-26 Orders Doctor MOSHE 1.2.840.114 [id number] Univers 00:00:00 00:00:00 Only Unassigned, TEDDY 350.1.13.10 ity of [place] [facility] 4.2.7.2.686 Jamal as [phone] [address] 2020-03-17 2020-03-17 Routine [facility] 1.2.224.383 [id number] Univers 12:49:30 13:34:04 Ernesto Rosario [employer]RAFTER [employer]AY[employer] 350.1.13.10 i ty of Visit [facility] 4.2.7.2.686 Jamal as MATERNAL [phone] [facility] ical & CHILD [address] [place] [address] 2020-03-17 2020-03-17 Outpatient R MADONNA [facility] [id number] Univers 13:00:00 13:00:00 ERNESTO rizo [facility] 2020-02-25 2020-02-25 Telephone [facility] 1.2.840.114 [id number] Univers 00:00:00 00:00:00 Ernesto Rosario DRAFTER [employer]OMOT[employer] DES[employer] LAYOUT 350.1.13.[address] [facility] 4.2.7.2.686 Jamal as MATERNAL [phone] Med ical & CHILD [address] [place] [address] 2020-02-18 2020-02-18 Outpatient [facility] [id number] Univers 14:45:00 14:45:00 ERNESTOSHARMILA rizo [facility] 2020-02-18 2020-02-18 Routine [facility] 1.2.503.144 [id number] Univers 14:09:04 14:39:35 Ernesto N DRAFTER [employer] DES[employer] LAYOUT 350.1.13.10 i ty of Visit [facility] 4.2.7.2.686 Jamal as MATERNAL [phone] Med ical & CHILD [address] [place] [address] 2020-02-03 2020-02-03 [facility] 1.2.840.114 [id number] Univers 00:00:00 00:00:00 Tushar Lund DRAFTER AUTOMOTIVE DESIGN LAYOUT 350.1.13.[address] [facility] 4..7.2.686 Jamal as MATERNAL [id number] Med ical & CHILD [address] [place] [address] 2020-02-03 2020-02-03 Refill Doctor [facility] 1.2.840.114 [id number] Univers 00:00:00 00:00:00 Unassigned, DRAFTER AUTOMOT[employer] DES[employer] LAYOUT 350.1.13.10 ity of [place] [facility] 4..7.2.686 Jamal as MATERNAL [id number] Med ical & CHILD [address] [place] [address] 2020-01-21 2020-01-21 Routine [facility] 1.2.355.023 [id number] Univers 15:20:02 16:02:58 Ernesto Rosario DRAFTER [employer]OMOT[employer] DESIGN LAYOUT 350.1.13.10 i ty of Visit [facility] 4.2.7.2.686 Jamal as MATERNAL [id number] Med ical & CHILD [address] [place] [address] 2020-01-21 2020-01-21 Outpatient R [facility] 33790 [id number] Univers 15:30:00 15:30:00 ERNESTO riosspenser [facility] 2020-01-18 2020-01-18 Refill Doctor [facility] 1.2.840.114 [id number] Univers 00:00:00 00:00:00 Unassigned, DRAFTER AUTOMOT[employer] DESIGN LAYOUT 350.1.13.10 ity of [place] [facility] 4.2.7.2.686 Jamal as MATERNAL [phone] Med ical & CHILD 107 [facility] 2020-01-09 2020-01-09 Make Up Artist Ultrasound, [facility] 1.2 .840.114 [id number] Univers 14:52:31 15:17:04 Visit AsyaShereen hand [employer]RAFTER [employer]AYOUT 350.1.13.10 ity of [place] 4.2.7.2.686 Jamal as MATERNAL [id number] Med ical & CHILD 369 [facility] 2020-01-09 2020-01-09 Outpatient P [facility] [id number] Univers 14:45:00 14:45:[address] [facility] 2020-01-09 2020-01-09 Abstract Madonna [facility] 1.2.840.114 [id number] Univers 00:00:00 00:00:00 Ernesto Rosario DRAFTER AUTOMOTIVE DESIGN LAYOUT 350.1.13.[address] [facility] 4.2.7.2.686 Jamal as MATERNAL [id number] Med ical & CHILD [address] [place] [address] 2019-12-27 2019-12-27 Telephone [facility] 1.2.840.114 [id number] Univers 00:00:00 00:00:00 Tushar Lund DRAFTER AUTOMOTIVE DESIGN LAYOUT 350.1.13.[address] [facility] 4.2.7.2.686 Jamal as MATERNAL [id number] [facility] ical & CHILD [address] [place] [address] 2019-12-26 2019-12-26 Initial Madonna [facility] 1.2.270.677 [id number] Univers 13:39:00 15:06:17 Ernesto Rosario DRAFTER [employer]OMOT[employer] DES[employer] LAYOUT 350.1.13.10 i ty of Visit [facility] 4.2.7.2.686 Jamal as MATERNAL [phone] [facility] ical & CHILD [address] [place] [address] 2019-12-26 2019-12-26 Outpatient R MADONNA [facility] [id number] Univers 13:45:00 13:45:[address] [facility] 2019-12-26 2019-12-26 Orders Doctor MESA 1.2.840.114 [id number] Univers 00:00:00 00:00:00 Only Unassigned, TEDDY 350.1.13.10 ity of [place] [facility] 4.2.7.2.686 Jamal as [phone] [address] 2019-12-09 2019-12-09 Outpatient R RIKY, [facility] [id number] Univers 13:15:00 13:15:[address] [facility] 2019-10-28 2019-10-28 Telephone Riky, [facility] 1.2.840.114 [id number] 00:00:00 00:00:00 Tushar C DRAFTER AUTOMOT[employer] DES[employer] LAYOUT 350.1.13.10 [facility] 4.2.7.2.686 MATERNAL [phone] & CHILD [address] [place] [address] 2019-10-28 2019-10-28 Telephone Riky, [facility] 1.2.840.114 [id number] [facility] 00:00:00 00:00:00 Tushar C DRAFTER AUTOMOT[employer] DESIGN LAYOUT 350.1.13.10 ity [facility] 4.2.7.2.686 Jamal as MATERNAL [id number] [facility] & CHILD [address] [place] [address] 2019-10-09 2019-10-09 Office Akinsipe, [facility] 1.2.958.052 [id number] [facility] 08:16:20 08:48:41 Visit Tushar C DRAFTER [employer]OM[employer] DES[employer] LAYOUT 350.1.13.[address] [facility] 4.2.7.2.686 Jamal as MATERNAL [id number] [facility] & [address] 2019-10-09 2019-10-09 Office Akinbernype, [facility] 1.2.797.538 [id number] 08:16:20 08:48:41 Visit Tushar C DRAFTER [employer]AYOUT 350.1.13.10 [facility] 4.2.7.2.686 MATERNAL [id number] & CHILD [address] [place] [address] 2019-10-09 2019-10-09 Outpatient R RIKY, [facility] [id number] Univers 08:15:00 08:15:[address] [facility] 2019-10-07 2019-10-07 Outpatient R RIKY, [facility] [id number] Univers 10:30:00 10:30:[address] [facility] 2019-09-27 2019-09-[address] [facility] 1.2.840.114 [id number] Univers 00:00:00 00:00:00 Tushar C DRAFTER AUTOMOTIVE DESIGN LAYOUT 350.1.13.10 ity of [place] 4.2.7.2.686 Jamal as MATERNAL [id number] Med ical & CHILD 107 [facility] 2019-09-25 2019-09-[address] [facility] 1.2.396.494 [id number] Univers 00:00:00 00:00:00 Tushar C DRAFTER AUTOMOTIVE DESIGN LAYOUT 350.1.13.10 ity of [place] 4.2.7.2.686 Jamal as MATERNAL [id number] Med ical & CHILD 107 [facility] 2019-08-19 2019-08-[address] [facility] 1.2.840.114 [id number] Univers 00:00:00 00:00:00 Tushar C DRAFTER AUTOMOT[employer] DESIGN LAYOUT 350.1.13.10 ity of [place] 4.2.7.2.686 Jamal as MATERNAL [phone] Med ical & CHILD 107 [facility] 2019-08-16 2019-08-16 Case [facility] 1.2.353.829 [id number] Univers 00:00:00 00:00:00 Management Selam DRAFTER [employer]OM[employer] DES[employer] LAYOUT 350.1.13.10 ity of [place] 4.2.7.2.686 Jamal as MATERNAL [id number] Med ical & CHILD 111 [facility] 2019-08-15 2019-08-15 Office Provider, WestRmchp Mike [facility] 1 .2.840.114 [id number] Univers 10:43:37 11:14:30 Visit Selam Alves DRAFTER AUTOMOT[employer] DES[employer] LAYOUT 350.1.13.10 ity of [place] 4.2.7.2.686 Jamal as MATERNAL [id number] Med ical & CHILD 107 [facility] 2019-08-15 2019-08-15 Outpatient R JOSELYN [facility] [id number] Univers 10:45:00 10:45:[address] [facility] 2019-07-23 2019-07-[address] [facility] 1.2.840.114 [id number] Univers 00:00:00 00:00:00 Tushar C DRAFTER AUTOMOT[employer] DES[employer] LAYOUT 350.1.13.10 ity of [place] 4.2.7.2.686 Jamal as MATERNAL [id number] [facility] & CHILD [address] [place] [address] 2019-07-19 2019-07-19 Orders Doctor MOSHE 1.2.840.114 [id number] Univers 00:00:00 00:00:00 Only Unassigned, TEDDY 350.1.13.10 ity of [facility] 4.2.7.2.686 Jamal as [phone] [address] 2019-07-08 2019-07-[address] [facility] 1.2.840.114 [id number] Univers 07:39:54 09:35:12 ne Visit Tushar C DRAFTER AUTOMOT[employer] DES[employer] LAYOUT 350.1.13.[address] [facility] 4.2.7.2.686 Jamal as MATERNAL [id number] [address] 2019-07-08 2019-07-08 [facility] [id number] Univers 09:30:00 09:30:00 TUSHAR ity o f [facility] 2019-07-05 2019-07-[address] [facility] 1.2.840.114 [id number] Univers 00:00:00 00:00:00 Tushar C DRAFTER AUTOMOTIVE DESIGN LAYOUT 350.1.13.[address] [facility] 4.2.7.2.686 Jamal as MATERNAL [id number] [address] 2019-04-29 2019-04-[address] [facility] 1.2.840.114 [id number] Univers 00:00:00 00:00:00 Tushar C DRAFTER AUTOMOTIVE DESIGN LAYOUT 350.1.13.[address] [facility] 4.2.7.2.686 Jamal as MATERNAL [id number] [facility] & [address] 2019-04-01 2019-04-[address] [facility] 1.2.840.114 [id number] Univers 00:00:00 00:00:00 Tushar C DRAFTER AUTOMOTIVE DESIGN LAYOUT 350.1.13.10 ity of [place] 4.2.7.2.686 Jamal as MATERNAL [id number] [facility] ical & CHILD [address] [place] [address] 2019 2019 Office JOSH Lan 1.2.635.253 [id number] [facility] 10:39:31 11:16:49 Visit Tushar Lund DRAFTER AUTOMOTIVE DESIGN LAYOUT 350.1.13.10 ity of [place] 4.2.7.2.686 Jamal as MATERNAL [id number] [facility] ical & CHILD [address] [place] [address] 2019 2019 Orders Doctor MOSHE 1.2.840.114 [id number] Univers 00:00:00 00:00:00 Only Unassigned, TEDDY 350.1.13.10 ity of [place] [facility] 4.2.7.2.686 Jamal as [phone] [facility] [address] [place] 2018-12-20 2018-12-20 Office Akinmanny, 1.2.840.3 [id number] Univers 09:37:41 10:39:11 Visit Tushar Lund 41009.1.1 i ty of 3.104.2.7 [place] .3.915764 Medica l .8 [place] 2018-12-20 2018-12-20 Telephone Brynjohnathan, 1.2.840.2 [id number] Univers 00:00:00 00:00:00 Tushar Lund 05577.1.1 i ty of 3.104.2.7 [place] .3.062050 Medica l .8 [place] 2018-12-20 2018-12-20 Orders Doctor 1.2.840.1 [id number] Univers 00:00:00 00:00:00 Only Unassigned, 99184.1.1 ity of [place] 3.104.2.7 [place] .3.299442 Medica l .8 [place] Results Test Description Test Time Test Comments [...] L [Au tomated message] The system which LiveRSVP nerated this result transmit brendan reference range: [...] g/dL 31.6-35.1 L RDW-SD (test code = 50538-0) 38.7 fL 39.0-49.9 L RDW-CV (test code = 788-0) 15.1 % 12.0-15.5 PLT (test code = 777-3) 338 See_Comment [Au tomated message] The system which LiveRSVP nerated this result transmit brendan reference range: 166 - 35 8 10*3/?L. The reference range was not used to interpret th is result as normal/abnormal . MPV (test code = 81943-2) 10.1 fL 9.5-12.9 NRBC/100 WBC (test code = 0.0 See_Comment [ Automated message] The 4908824430) system which LiveRSVP nerated this result transmit brendan reference range: 0.0 - 10 .0 /100 WBCs. The reference r yancy was not used to interpr et this result as normal/abnor mal. NRBC x10^3 (test code = See_Comment [Au tomated message] The 8986439741) system which LiveRSVP nerated this result transmit brendan reference range: 10*3/?L. The reference range was not u sed to interpret this result as normal/abnormal . GRAN MAT (NEUT) % (test code 72.3 % = 770-8) IMM GRAN % (test code = 0.90 % 0608402583) LYMPH % (test code = 736-9) 18.3 % MONO % (test code = 5905-5) 5.8 % EOS % (test code = 713-8) 2.5 % BASO % (test code = 706-2) 0.2 % GRAN MAT x10^3(ANC) (test 7.24 10*3/uL 1.88-7.09 H code = 7584014156) IMM GRAN x10^3 (test code = 0.09 10*3/uL 0.00-0.06 H 3638872886) LYMPH x10^3 (test code = 1.83 10*3/uL 1.32-3.29 731-0) MONO x10^3 (test code = 0.58 10*3/uL 0.33-0.92 742-7) EOS x10^3 (test code = 0.25 10*3/uL 0.03-0.39 711-2) BASO x10^3 (test code = 0.01-0.07 704-7) Lab Interpretation (test Abnormal code = 59500-8) [facility] [place] [facility]. METABOLIC PANEL (91501)2022-07-25 03:39:13 Test Item Value Reference Range Interpretation Comments NA (test code = 138 mmol/L 135-145 4748182077) K (test code = 3.1 mmol/L 3.5-5.0 L 4128558487) CL (test code = 109 mmol/L 98-108 H 6744305738) CO2 TOTAL (test code = 21 mmol/L 23-31 L 1579819661) AGAP (test code = 8 2-16 1057750894) BUN (test code = 12 mg/dL 7-23 4455385717) GLUCOSE (test code = 100 mg/dL 70-110 8378347718) CREATININE (test code = 0.44 mg/dL 0.50-1.04 L 4420736782) TOTAL BILI (test code = 1.1 mg/dL 0.1-1.9 4719910892) CALCIUM (test code = 8.1 mg/dL 8.6-10.6 L 6710318807) T PROTEIN (test code = 6.1 g/dL 6.3-8.2 L 8829775199) ALBUMIN (test code = 2.9 g/dL 3.5-5.0 L 2694016209) ALK PHOS (test code = 101 U/L 34-122 5274033556) ALTv (test code = 11 U/L 5-35 1742-6) AST(SGOT) (test code = 19 U/L 13-40 5512710559) eGFR (test code = 182.3 mL/min/1.73m2 4072194331) ARGENIS (test code = ARGENIS) Association of [...] tests). Lab Interpretation Abnormal (test code = 48089-3) [facility] WITH [id number] 03:29:32 Test Item Value Reference Range Interpretation Comments WBC (test code = 9.87 See_Comment [Automated 0444-2) message] The sy stem which generated this result transmitted reference range : 4.30 - 11.10 10*3/?L. The reference range was not used to interpret this result as normal/abnormal . RBC (test code = 3.57 See_Comment L [Automated 789-8) message] The sy stem which [...] (test code = 38.3 fL 39.0-49.9 L 58902-4) RDW-CV (test code = 15.1 % 12.0-15.5 788-0) PLT (test code = 279 See_Comment [Automated 777-3) message] The sy stem which generated this result transmitted reference range : 166 - 358 10*3/ ?L. The reference r yancy was not used to interpret this result as normal/abnormal . MPV (test code = 10.3 fL 9.5-12.9 15199-6) NRBC/100 WBC (test 0.0 See_Comment [Automat ed code = 6448988503) message] The system which generated this result transmitted reference range : 0.0 - 10.0 /100 WBCs. The refer ence range was not u sed to interpret th is result as normal/abnormal . NRBC x10^3 (test code See_Comment [Auto mated = 8642764311) message] The s ystem which generated this result transmitted reference range : 10*3/?L. The reference range was not used to interpret this result as normal/abnormal . GRAN MAT (NEUT) % 80.7 % (test code = 770-8) IMM GRAN % (test code 0.70 % = 1731212003) LYMPH % (test code = 11.3 % 736-9) MONO % (test code = 4.9 % 5905-5) EOS % (test code = 2.2 % 713-8) BASO % (test code = 0.2 % 706-2) GRAN MAT x10^3(ANC) 7.96 10*3/uL 1.88-7.09 H (test code = 8976165775) IMM GRAN x10^3 (test 0.07 10*3/uL 0.00-0.06 H code = 3933706285) LYMPH x10^3 (test code 1.12 10*3/uL 1.32-3.29 L = 731-0) MONO x10^3 (test code 0.48 10*3/uL 0.33-0.92 = 742-7) EOS x10^3 (test code = 0.22 10*3/uL 0.03-0.39 711-2) BASO x10^3 (test code 0.01-0.07 = 704-7) Lab Interpretation Abnormal (test code = 75360-9) [facility] IMMUNE [id number] 00:24:07 Test Item Value Reference Range Interpretation Comments RHIG CANDIDATE? No- see comment Patient i s not a (test code = candidate for R [facility]- 5188) Patient is Rh Positive.Perfor med at [facility] Laboratory Services - [facility] Blood [address] [place] [id number] Free: [phone] A No. [id number] [facility] with [id number] 11:22:51 Test Item Value Reference Range Interpretation Comments WBC (test code = 21.75 See_Comment H [Automated 4849-2) message] The system which generated this result transmit brendan reference range : 4.30 - 11.10 10*3/?L. The reference range was not used to interpret this result as normal/abnormal . RBC (test code = 3.93 See_Comment [Automated 792-3) message] The system which generated this result [...] (test code = 37.8 fL 39.0-49.9 L 25200-0) RDW-CV (test code = 14.6 % 12.0-15.5 788-0) PLT (test code = 216 See_Comment [Automated 777-3) message] The system which generated this result transmit brendan reference range : 166 - 358 10*3/ ?L. The reference range was not u sed to interpret th is result as normal/abnormal . MPV (test code = 10.8 fL 9.5-12.9 20107-6) NRBC/100 WBC (test 0.0 See_Comment [Automat ed code = 6311864979) message] The system which generated this result transmit brendan reference range : 0.0 - 10.0 /100 WBCs. The reference range was not used to interpret this result as normal/abnormal . NRBC x10^3 (test code See_Comment [Auto mated = 0123508088) message] The system which generated this result transmit brendan reference range : 10*3/?L. The reference range was not used to interpret this result as normal/abnormal . SEG % (test code = 83 % 33-76 H 87784-5) BAND % (test code = 9 % 0-1 H 54713-4) LYMPH % (test code = 8 % 14-54 L 22063-8) ANC (test code = 20.01 10*3/uL 1.88-7.09 H 753-4) Lab Interpretation Abnormal (test code = 73813-9) [facility] with [id number] 11:22:51 Test Item Value Reference Range Interpretation [...] (test code = 37.8 fL 39.0-49.9 L 81306-2) RDW-CV (test code = 14.6 % 12.0-15.5 788-0) PLT (test code = 216 See_Comment [Automated 777-3) message] The system which generated this result transmit brendan reference range : 166 - 358 10*3/ ?L. The reference range was not u sed to interpret th is result as normal/abnormal . MPV (test code = 10.8 fL 9.5-12.9 99236-5) NRBC/100 WBC (test 0.0 See_Comment [Automat ed code = 5977335739) message] The system which generated this result transmit brendan reference range : 0.0 - 10.0 /100 WBCs. The reference range was not used to interpret this result as normal/abnormal . NRBC x10^3 (test code See_Comment [Auto mated = 6682395979) message] The system which generated this result transmit brendan reference range : 10*3/?L. The reference range was not used to interpret this result as normal/abnormal . SEG % (test code = 83 % 33-76 H 00702-4) BAND % (test code = 9 % 0-1 H 43335-6) LYMPH % (test code = 8 % 14-54 L 37488-3) ANC (test code = 20.01 10*3/uL 1.88-7.09 H 753-4) Lab Interpretation Abnormal (test code = 13717-6) [facility] URINALYSIS W SPECIFIC [id number] 19:23:00 Test Item Value Reference Range Interpretation [...] U APPEAR (test code = 3267) . [facility] URINALYSIS W SPECIFIC [id number] 19:48:00 Test Item Value Reference Range Interpretation [...] U APPEAR (test code = 3267) . [facility] URINALYSIS W SPECIFIC [id number] 18:04:00 Test Item Value Reference Range Interpretation [...] U APPEAR (test code = 3267) . [facility] with [id number] 04:55:42 Test Item Value Reference Range Interpretation Comments WBC (test code = 12.52 See_Comment H [Automated 4390-2) message] The sy stem which generated this result transmitted reference range : 4.30 - 11.10 10*3/?L. The reference range was not used to interpret this result as normal/abnormal . RBC (test code = 4.28 See_Comment [Automated 869-8) message] The sy stem which generated this [...] RDW-SD (test code = 39.8 fL 39.0-49.9 38951-5) RDW-CV (test code = 13.8 % 12.0-15.5 788-0) PLT (test code = 287 See_Comment [Automated 777-3) message] The sy stem which generated this result transmitted reference range : 166 - 358 10*3/ ?L. The reference r yancy was not used to interpret this result as normal/abnormal . MPV (test code = 11.0 fL 9.5-12.9 83868-8) NRBC/100 WBC (test 0.0 See_Comment [Automat ed code = [id number]) message] The system which generated this result transmitted reference range : 0.0 - 10.0 /100 WBCs. The refer ence range was not u sed to interpret th is result as normal/abnormal . NRBC x10^3 (test code See_Comment [Auto mated = [id number]) message] The s ystem which generated this result transmitted reference range : 10*3/?L. The reference range was not used to interpret this result as normal/abnormal . GRAN MAT (NEUT) % 68.4 % (test code = 770-8) IMM GRAN % (test code 1.10 % = [id number]) LYMPH % (test code = 19.6 % 736-9) MONO % (test code = 6.5 % 5905-5) EOS % (test code = 3.8 % 713-8) BASO % (test code = 0.6 % 706-2) GRAN MAT x10^3(ANC) 8.56 10*3/uL 1.88-7.09 H (test code = [id number]) IMM GRAN x10^3 (test 0.14 10*3/uL 0.00-0.06 H code = [id number]) LYMPH x10^3 (test code 2.46 10*3/uL 1.32-3.29 = 731-0) MONO x10^3 (test code 0.82 10*3/uL 0.33-0.92 = 742-7) EOS x10^3 (test code = 0.47 10*3/uL 0.03-0.39 H 711-2) BASO x10^3 (test code 0.07 10*3/uL 0.01-0.07 = 704-7) Lab Interpretation Abnormal (test code = 91086-9) [facility] [id number] 04:31:20 Test Item Value Reference Range Interpretation Comments GLUC 1 HR (test code = 1521766858) 72 mg/dL 120-170 L Lab Interpretation (test code = Abnormal 26488-9) [facility] URINALYSIS W SPECIFIC [id number] 20:18:00 Test Item Value Reference Range Interpretation [...] U APPEAR (test code = 3267) . [facility] URINALYSIS W SPECIFIC [id number] 20:18:00 Test Item Value Reference Range Interpretation [...] U APPEAR (test code = 3267) . [facility] URINALYSIS W SPECIFIC [id number] 17:24:00 Test Item Value Reference Range Interpretation [...] U APPEAR (test code = 3267) . [facility] URINALYSIS W SPECIFIC [id number] 16:03:00 Test Item Value Reference Range Interpretation [...] U APPEAR (test code = 3267) . [facility] URINALYSIS W SPECIFIC [id number] 17:19:00 Test Item Value Reference Range Interpretation [...] U APPEAR (test code = 3267) . [facility] URINALYSIS W SPECIFIC [id number] 17:19:00 Test Item Value Reference Range Interpretation [...] U APPEAR (test code = 3267) . [facility] URINALYSIS W SPECIFIC [id number] 16:39:00 Test Item Value Reference Range Interpretation [...] POCT U APPEAR (test code = 3267) [facility] URINALYSIS W SPECIFIC [id number] 19:37:00 Test Item Value Reference Range Interpretation [...] U APPEAR (test code = 3267) . [facility] URINALYSIS W SPECIFIC [id number] 15:33:00 Test Item Value Reference Range Interpretation [...] U APPEAR (test code = 3267) . [facility] [id number] 14:34:00 Test Item Value Reference Range Interpretation Comments POCT PREG (test code = 1605) Positive On board controls acceptable with C Yes Line (test code = 3574) POCT PREG LOT # (test code = 3575) POCT PREG TEST DATE (test code = 3576) [facility] URINALYSIS W/O SPECIFIC [id number] 14:34:00 Test Item Value Reference Range Interpretation [...] code = 3257) negative Negative - Negative [facility] [id number] 14:34:00 Test Item Value Reference Range Interpretation Comments POCT PREG (test code = 1605) Positive On board controls acceptable with C Yes Line (test code = 3574) POCT PREG LOT # (test code = 3575) POCT PREG TEST DATE (test code = 3576) [facility] URINALYSIS W/O SPECIFIC [id number] 14:34:00 Test Item Value Reference Range Interpretation [...] code = 3257) negative Negative - Negative [facility] [id number] 14:31:00 Test Item Value Reference Range Interpretation Comments POCT PREG (test code = 1605) Positive On board controls acceptable with C Yes Line (test code = 3574) POCT PREG LOT # (test code = 3575) POCT PREG TEST DATE (test code = 3576) [facility] [id number] 18:26:00 Test Item Value Reference Range Interpretation Comments POCT PREG (test code Negative = 1605) On board controls Yes acceptable with C Line (test code = 3574) POCT PREG LOT # (test code = 3575) POCT PREG TEST DATE (test code = 3576) ARGENIS (test code = ARGENIS) accurate development and interpretation of all internal controls [facility]
[2022-09-05] MEDS ORDERED: CEFTRIAXONE 1000 MG/VIAL ONE (20:40)
[2022-09-05] MEDS ORDERED: VANCOMYCIN 1 GM/VIAL ONE (20:40)
[2022-09-05] MEDS ORDERED: ACETAMINOPHEN 500 MG TAB ONE (20:40)
[2022-09-05] MEDS ORDERED: ONDANSETRON 4 MG/2 ML VIAL ONE (20:41)
[2022-09-05] MEDS ORDERED: KETOROLAC 30 MG/ML INJ ONE (20:41)
[2022-09-05] MEDS ORDERED: NA CHLORIDE 0.9% 250 ML ONE (20:41)
[2022-09-05] MEDS ORDERED: NA CHLORIDE 0.9% 50 ML ONE (20:41)
[2022-09-05] MEDS ORDERED: NA CHLORIDE 0.9% 2,000 ML ONE (20:41)
[2022-09-05 21:07] LABS: Absolute Lymphocytes (CBC) 0.7 K/uL (0.7-4.9); Hematocrit 35.5 % (36.0-45.0); Lymphocytes % 5.8 % (15.3-44.8); MCV 67.9 fL (80-100); MPV 8.9 fL (7.6-11.3); RBC Red Blood Cell Count 5.23 M/uL (3.86-4.86)
[2022-09-05 21:31] LABS: Protime INR 1.07
--- NOTE | 2022-09-05 21:55 | RAD REPORT ---
EXAM DESCRIPTION: US - Extremity Nonvascular Limited - 09/05/2022 9:29 pm CLINICAL HISTORY: right breast pain , R breast Soft tissue exam for abscess COMPARISON: No comparisons TECHNIQUE: Focused ultrasound of the right breast. FINDINGS: Several dilated ducts present in the region of the right nipple. No fluid collections iden tified. Skin thickening present. IMPRESSION: No abscess identified. Dilated ducts consistent with lactating female.
[2022-09-05 22:08] LABS: ALT/SGPT 15 U/L (13-56); AST/SGOT 6 U/L (15-37); Alkaline Phosphatase 71 U/L (45-117); BUN Blood Urea Nitrogen 15 mg/dL (7-18); Bicarbonate 25 mEq/L (21-32); Bilirubin Direct 0.2 mg/dL (0-0.2); Bilirubin Indirect, Calculated 0.8 mg/dL (0.2-0.8); Glomerular Filtration Rate 133 ml/min (=/>90); Glucose Level 97 mg/dL (74-106); Magnesium 1.7 mg/dL (1.6-2.4); Potassium 3.3 mEq/L (3.5-5.1); Sodium Level 138 mEq/L (136-145)
[2022-09-05 22:12] LABS: Troponin High Sensitivity < 3.0 pg/mL (<58.9)
[2022-09-05] MEDS ORDERED: DIPHENHYDRAMINE 50 MG/ML VIAL ONE (22:20)
--- NOTE | 2022-09-05 23:13 | EDPHYS ---
Physician Documentation [facility] Name: Sil Gaytan Age: 22 yrs Sex: Female : 2000 Arrival Date: 09/05/2022 Time: 19:41 Bed 19 Private MD: ED Physician Lj Leiva HPI: 09/05 20:12 This 22 yrs old Female presents to ER via Ambulatory with complaints of sp4 Breast Problem. 21:52 22-year-old female several weeks . . sp4 21:55 Patient is 6 weeks . Patient states that she developed right breast pain sp4 starting this morning. Patient is currently breast-feeding. Patient's date of delivery was 07/21/2022. . Historical: - Allergies: 20:08 Codeine; cm10 20:08 PENICILLINS; cm10 20:08 Prednisone; cm10 - PMHx: 20:08 Asthma; cm10 - PSHx: 20:08 ; cm10 - Immunization history:: Adult Immunizations unknown. - Social history:: Smoking status: Patient denies any tobacco usage or history of. - Family history:: not pertinent. ROS: 21:55 Constitutional: Negative for fever, chills, and weight loss, positive right breast sp4 pain. Positive right breast tenderness without redness. Eyes: Negative for injury, pain, redness, and discharge, ENT: Negative for injury, pain, and discharge, Neck: Negative for injury, pain, and swelling, Cardiovascular: Negative for chest pain, palpitations, and edema, Respiratory: Negative for shortness of breath, cough, wheezing, and pleuritic chest pain, Abdomen/GI: Negative for abdominal pain, nausea, vomiting, diarrhea, and constipation, Back: Negative for injury and pain, : Negative for injury, bleeding, discharge, and swelling, MS/Extremity: Negative for injury and deformity, Skin: Negative for injury, rash, and discoloration, positive right breast tenderness and pain Neuro: Negative for headache, weakness, numbness, tingling, and seizure, Psych: Negative for depression, anxiety, Allergy/Immunology: Negative for hives, rash, and allergies Endocrine: Negative for neck swelling, polydipsia, polyuria, polyphagia, and weight changes Hematologic/Lymphatic: Negative for swollen nodes, abnormal bleeding, and unusual bruising 21:55 All other systems are negative. Exam: 23:07 Constitutional: This is a well developed, well nourished patient who is awake, alert, sp4 and in no acute distress. Ill appearing, tachycardia Head/Face: Normocephalic, atraumatic. Eyes: Pupils equal round and reactive to light, extra-ocular motions intact. Lids and lashes normal. Conjunctiva and sclera are not injected. Cornea within normal limits. Periorbital areas with no swelling, redness, or edema. ENT: Nares patent. No nasal discharge, no septal abnormalities noted. Tympanic membranes are normal and external auditory canals are clear. Oropharynx with no redness, swelling, or masses, exudates, or evidence of obstruction, uvula midline. Mucous membranes moist. Neck: Trachea midline, no thyromegaly or masses palpated, and no cervical lymphadenopathy. Supple, full range of motion without nuchal rigidity, or vertebral point tenderness. Chest/axilla: Normal chest wall appearance and motion. Nontender with no deformity. No lesions are appreciated. Right breast tenderness with no sign of cellulitis. Cardiovascular: Regular rate and rhythm with a normal S1 and S2. No gallops, murmurs, or rubs. Normal PMI, no JVD. No pulse deficits. Respiratory: Lungs have equal breath sounds bilaterally, clear to auscultation and percussion. No rales, rhonchi or wheezes noted. No increased work of breathing, no retractions or nasal flaring. Abdomen/GI: Soft, non-tender, with normal bowel sounds. No distension or tympany. No guarding or rebound. No evidence of tenderness throughout. Back: No spinal tenderness. No costovertebral tenderness. Skin: Warm, dry with normal turgor. Normal color with no rashes, no lesions, and no evidence of cellulitis. MS/ Extremity: Pulses equal, no cyanosis. Neurovascular intact. Full, normal range of motion. Neuro: Awake and alert, GCS 15, oriented to person, place, time, and situation. Cranial nerves II-XII grossly intact. Motor strength 5/5 in all extremities. Sensory grossly intact. Psych: Awake, alert, with orientation to person, place and time. Behavior, mood, and affect are within normal limits Vital Signs: 20:06 BP 129 / 65; Pulse 154; Resp 18 S; Temp 100.2; Pulse Ox 100% on R/A; Weight 80.29 kg; cm10 Height 5 ft. 6 in. ; Pain 9/10; 21:00 BP 130 / 68; Pulse 133; Resp 24; Pulse Ox 99% on R/A; eh3 21:46 BP 101 / 70; Pulse 132; Resp 28; Pulse Ox 97% on R/A; pf1 22:22 BP 119 / 68; Pulse 115; Resp 23; Temp 100.1; Pulse Ox 99% on R/A; Pain 0/10; pf1 23:27 BP 113 / 64; Pulse 116; Resp 24; Pulse Ox 98% on R/A; vc1 20:06 Body Mass Index 28.57 (80.29 kg, 167.64 cm) cm10 20:06 Pain Scale: Adult cm10 22:22 Pain Scale: Adult pf1 MDM: 20:22 Patient medically screened. sp4 23:07 Data reviewed: vital signs, nurses notes, lab test result(s), radiologic studies, sp4 ultrasound. Consideration of Admission/Observation Patient was admitted/placed on observation. Escalation of care including admission/observation considered. ED course: Patient has no sign of abscess based on ultrasound report. Mild elevation of white count. There is no sign of cellulitis but probably early mastitis based on examination. We will start a course of Bactrim and cephalexin for the next 10 days.. 09/05 20:19 Order name: Basic Metabolic Panel; Complete Time: 23:03 sp4 09/05 20:19 Order name: CBC with Diff sp4 09/05 20:19 Order name: Hepatic Function; Complete Time: 23:03 sp4 09/05 20:19 Order name: Magnesium; Complete Time: 23:03 sp4 09/05 20:19 Order name: Protime (+inr); Complete Time: 21:52 sp4 09/05 20:19 Order name: Ptt, Activated; Complete Time: 21:52 sp4 09/05 20:19 Order name: Troponin High Sensitivity; Complete Time: 23:03 sp4 09/05 21:04 Order name: Blood Culture Adult (2) eh3 09/05 22:20 Order name: Manual Differential EDMS 09/05 20:22 Order name: US Extrmty Nonvasular Limited; Complete Time: 23:03 sp4 09/05 20:19 Order name: EKG; Complete Time: 20:20 4 09/05 20:19 Order name: Cardiac monitoring; Complete Time: 20:24 4 09/05 20:19 Order name: EKG - Nurse/Tech; Complete Time: 20:24 4 09/05 20:19 Order name: IV Saline Lock; Complete Time: 21:02 4 09/05 20:19 Order name: Labs collected and sent; Complete Time: 21:02 [facility] 09/05 20:19 Order name: O2 Per Protocol; Complete Time: 20:24 4 09/05 20:19 Order name: O2 Sat Monitoring; Complete Time: 20:24 sp4 Administered Medications: 22:15 Discontinued: vancoMYCIN IVPB 1 grams IVPB once over 2 hrs pf1 20:30 Drug: Acetaminophen PO 1000 mg Route: PO; eh3 21:25 Follow up: Response: No adverse reaction; Marked relief of symptoms pf1 20:50 Drug: Ketorolac IVP 30 mg Route: IVP; Site: right antecubital; eh3 21:25 Follow up: Response: No adverse reaction; Marked relief of symptoms; Pain is decreased pf1 20:50 Drug: Ondansetron IVP 4 mg Route: IVP; Site: right antecubital; eh3 21:25 Follow up: Response: No adverse reaction; Marked relief of symptoms; Nausea is decreasedpf1 20:50 Drug: NS 0.9% IV 1000 ml Route: IV; Rate: 1 bolus; Site: right antecubital; eh3 21:26 Follow up: Response: No adverse reaction; Marked relief of symptoms pf1 23:00 Follow up: IV Status: Completed infusion; IV Intake: 1000ml pf1 20:50 Drug: NS 0.9% IV 1000 ml Route: IV; Rate: 1 bolus; Site: right antecubital; eh3 21:25 Follow up: Response: No adverse reaction; Marked relief of symptoms pf1 23:00 Follow up: IV Status: Completed infusion; IV Intake: 1000ml pf1 20:50 Drug: Rocephin - Rocephin (cefTRIAXone) IVPB 1 grams Route: IVPB; Infused Over: 30 eh3 mins; Site: right antecubital; 21:10 Follow up: Response: No adverse reaction; Marked relief of symptoms; IV Status: pf1 Completed infusion; IV Intake: 50ml 21:15 Drug: vancoMYCIN IVPB 1 grams Route: IVPB; Infused Over: 2 hrs; Site: right antecubital;eh3 22:15 Follow up: Response: Adverse reaction, Physician notified; IV Status: Order to pf1 discontinue infusion; patient redness to forehead with itching. Notified Dr. Leiva 22:15 Drug: diphenhydrAMINE IVP 25 mg Route: IVP; Site: right antecubital; pf1 23:15 Follow up: Response: No adverse reaction; Marked relief of symptoms pf1 23:25 Drug: Trimethoprim-Sulfamethoxazole PO (160 mg-800 mg (DS) 1 tablet Route: PO; pf1 23:50 Follow up: Response: No adverse reaction; Marked relief of symptoms pf1 Disposition Summary: 09/05/22 23:13 Discharge Ordered Location: Home sp4 Problem: new sp4 Symptoms: have improved sp4 Condition: Stable sp4 Diagnosis - Nonpurulent mastitis associated with sp4 - Acute mastitis of right breast sp4 Followup: sp4 - With: Private Physician - When: 1 week - Reason: Recheck today's complaints Discharge Instructions: - Discharge Summary Sheet sp4 - Mastitis sp4 Forms: - Patient Portal Instructions.htm sp4 Prescriptions: - Cephalexin 500 mg Oral Capsule - take 1 capsule by ORAL route every 6 hours for 10 days; 40 capsule; Refills: 0, sp4 Product Selection Permitted - Ibuprofen 600 mg Oral Tablet - take 1 tablet by ORAL route every 6 hours As needed take with food; 30 tablet; sp4 Refills: 0, Product Selection Permitted - Bactrim DS 800-160 mg Oral Tablet - take 1 tablet by ORAL route every 12 hours for 10 days; 20 tablet; Refills: 0, sp4 Product Selection Permitted Addendum: 09/07/2022 04:53 Addendum: EKG 2019, on 09/05/2022 revealed sinus tachycardia at the rate of 129, no ST s p4 elevation or depression, no ectopy, no other abnormality, EKG consistent with sinus tachycardia. Signatures: Dispatcher [employer] EDDelilah Antonio RN RN eh3 Kelly Martinez RN RN pf1 Lj Leiva MD MD sp4 Anu Nieves RN RN cm10
--- NOTE | 2022-09-05 23:13 | ER ---
Nurse's Notes [facility] Name: Sil Gaytan Age: 22 yrs Sex: Female : 2000 Arrival Date: 09/05/2022 Time: 19:41 Bed 19 Private MD: Diagnosis: Nonpurulent mastitis associated with ;Acute mastitis of right breast Presentation: 09/05 20:06 Chief complaint: Patient states: that she thinks that she has mastitis in her right cm10 breast. Denies fever, reports chills. Coronavirus screen: Vaccine status: Patient reports being unvaccinated. Ebola Screen: No symptoms or risks identified at this time. Initial Sepsis Screen: Does the patient meet any 2 criteria? HR > 90 bpm. Does the patient have a suspected source of infection? No. Patient's initial sepsis screen is negative. Risk Assessment: Do you want to hurt yourself or someone else? Patient reports no desire to harm self or others. Onset of symptoms was September 05, 2022. 20:06 Method Of Arrival: Ambulatory cm10 20:06 Acuity: DELMAR 3 cm10 Triage Assessment: 20:08 General: Appears in no apparent distress. comfortable, Behavior is calm, cooperative. cm10 Pain: Complains of pain in right breast Pain currently is 9 out of 10 on a pain scale. Neuro: No deficits noted. Level of Consciousness is awake, alert, Oriented to person, place, time, situation. Respiratory: No deficits noted. Airway is patent Respiratory effort is even, unlabored, Respiratory pattern is regular, symmetrical. Historical: - Allergies: 20:08 Codeine; cm10 20:08 PENICILLINS; cm10 20:08 Prednisone; cm10 - PMHx: 20:08 Asthma; cm10 - PSHx: 20:08 ; cm10 - Immunization history:: Adult Immunizations unknown. - Social history:: Smoking status: Patient denies any tobacco usage or history of. - Family history:: not pertinent. Screenin:[facility] ED Fall Risk Assessment (Adult) Score/Fall Risk Level 0 - 2 = Low Risk. Abuse eh3 screen: Denies threats or abuse. Denies injuries from another. Nutritional screening: No deficits noted. Tuberculosis screening: No symptoms or risk factors identified. Assessment: 20:15 General: Appears in no apparent distress. uncomfortable, Behavior is calm, cooperative, eh3 appropriate for age. Pain: Complains of pain in right breast. Neuro: Level of Consciousness is awake, alert, obeys commands, Oriented to person, place, time, situation. Cardiovascular: Capillary refill < 3 seconds Patient's skin is warm and dry. Rhythm is sinus tachycardia. Respiratory: Airway is patent Respiratory effort is even, unlabored, Respiratory pattern is regular, symmetrical. GI: Abdomen is round non-distended. Derm: Skin is intact, is healthy with good turgor, right breast red and swollen. Musculoskeletal: Circulation, motion, and sensation intact. 21:00 Reassessment: Patient appears in no apparent distress at this time. Patient and/or eh3 family updated on plan of care and expected duration. Pain level reassessed. Patient is alert, oriented x 3, equal unlabored respirations, skin warm/dry/pink. 21:20 Reassessment:. General: Appears in no apparent distress. comfortable, well groomed, pf1 well developed, Behavior is calm, cooperative, appropriate for age, quiet. 21:20 Pain: Complains of pain in right breast. Neuro: No deficits noted. Level of pf1 Consciousness is awake, alert, obeys commands, Oriented to person, place, time, situation. Cardiovascular: Capillary refill < 3 seconds Patient's skin is warm and dry. Respiratory: No deficits noted. Airway is patent Respiratory effort is even, unlabored, Respiratory pattern is regular, symmetrical, Breath sounds are clear bilaterally. GI: No deficits noted. Abdomen is round non-distended. : No deficits noted. No signs and/or symptoms were reported regarding the genitourinary system. EENT: No deficits noted. No signs and/or symptoms were reported regarding the EENT system. Derm: Skin is intact, Skin is red, mild redness noted to right breast with swelling. 21:47 Reassessment: Patient appears in no apparent distress at this time. Patient and/or pf1 family updated on plan of care and expected duration. Pain level reassessed. Patient is alert, oriented x 3, equal unlabored respirations, skin warm/dry/pink. Patient states feeling better. Patient states symptoms have improved. 22:19 Reassessment: Patient appears in no apparent distress at this time. Patient and/or pf1 family updated on plan of care and expected duration. Pain level reassessed. Patient is alert, oriented x 3, equal unlabored respirations, skin warm/dry/pink. Patient states feeling better. Patient states symptoms have improved. patient requested another peanut butter and jelly sandwich. . 23:27 Reassessment: Patient appears in no apparent distress at this time. No changes from vc1 previously documented assessment. Patient and/or family updated on plan of care and expected duration. Pain level reassessed. Will be discharged after antibiotic. Vital Signs: 20:06 BP 129 / 65; Pulse 154; Resp 18 S; Temp 100.2; Pulse Ox 100% on R/A; Weight 80.29 kg; cm10 Height 5 ft. 6 in. ; Pain 9/10; 21:00 BP 130 / 68; Pulse 133; Resp 24; Pulse Ox 99% on R/A; eh3 21:46 BP 101 / 70; Pulse 132; Resp 28; Pulse Ox 97% on R/A; pf1 22:22 BP 119 / 68; Pulse 115; Resp 23; Temp 100.1; Pulse Ox 99% on R/A; Pain 0/10; pf1 23:27 BP 113 / 64; Pulse 116; Resp 24; Pulse Ox 98% on R/A; vc1 20:06 Body Mass Index 28.57 (80.29 kg, 167.64 cm) cm10 20:06 Pain Scale: Adult cm10 22:22 Pain Scale: Adult pf1 ED Course: 19:43 Patient arrived in ED. ja2 20:08 Triage completed. cm10 20:09 Arm band placed on Patient placed. cm10 20:12 Lj Leiva MD is Attending Physician. sp4 20:15 Patient has correct armband on for positive identification. Placed in gown. Bed in low eh3 position. Call light in reach. Side rails up X2. Provided Education on: N/A. Pulse ox on. NIBP on. Door closed. Noise minimized. Lights dimmed. 20:16 Cardiovascular Lab Director Breast exam. cm10 20:23 Delilah Craven, ABDIFATAH is Primary Nurse. eh3 20:30 Inserted saline lock: 20 gauge in right antecubital area, using aseptic technique. eh3 Blood collected. 21:24 Blood Culture Adult (2) Sent. pf1 21:31 US Extrmty Nonvasular Limited In Process Unspecified. EDMS 23:52 IV discontinued, intact, bleeding controlled, No redness/swelling at site. Pressure pf1 dressing applied. Administered Medications: 22:15 Discontinued: vancoMYCIN IVPB 1 grams IVPB once over 2 hrs pf1 20:30 Drug: Acetaminophen PO 1000 mg Route: PO; eh3 21:25 Follow up: Response: No adverse reaction; Marked relief of symptoms pf1 20:50 Drug: Ketorolac IVP 30 mg Route: IVP; Site: right antecubital; eh3 21:25 Follow up: Response: No adverse reaction; Marked relief of symptoms; Pain is decreased pf1 20:50 Drug: Ondansetron IVP 4 mg Route: IVP; Site: right antecubital; eh3 21:25 Follow up: Response: No adverse reaction; Marked relief of symptoms; Nausea is decreasedpf1 20:50 Drug: NS 0.9% IV 1000 ml Route: IV; Rate: 1 bolus; Site: right antecubital; eh3 21:26 Follow up: Response: No adverse reaction; Marked relief of symptoms pf1 23:00 Follow up: IV Status: Completed infusion; IV Intake: 1000ml pf1 20:50 Drug: NS 0.9% IV 1000 ml Route: IV; Rate: 1 bolus; Site: right antecubital; eh3 21:25 Follow up: Response: No adverse reaction; Marked relief of symptoms pf1 23:00 Follow up: IV Status: Completed infusion; IV Intake: 1000ml pf1 20:50 Drug: Rocephin - Rocephin (cefTRIAXone) IVPB 1 grams Route: IVPB; Infused Over: 30 eh3 mins; Site: right antecubital; 21:10 Follow up: Response: No adverse reaction; Marked relief of symptoms; IV Status: pf1 Completed infusion; IV Intake: 50ml 21:15 Drug: vancoMYCIN IVPB 1 grams Route: IVPB; Infused Over: 2 hrs; Site: right antecubital;eh3 22:15 Follow up: Response: Adverse reaction, Physician notified; IV Status: Order to pf1 discontinue infusion; patient redness to forehead with itching. Notified Dr. Leiva 22:15 Drug: diphenhydrAMINE IVP 25 mg Route: IVP; Site: right antecubital; pf1 23:15 Follow up: Response: No adverse reaction; Marked relief of symptoms pf1 23:25 Drug: Trimethoprim-Sulfamethoxazole PO (160 mg-800 mg (DS) 1 tablet Route: PO; pf1 23:50 Follow up: Response: No adverse reaction; Marked relief of symptoms pf1 Medication: 23:27 VIS not applicable for this client. vc1 Intake: 21:10 IV: 50ml; Total: 50ml. pf1 23:00 IV: 1000ml; Total: 1050ml. pf1 23:00 IV: 1000ml; Total: 2050ml. pf1 Outcome: 23:13 Discharge ordered by . sp4 23:52 Discharged to home ambulatory, with family. pf1 23:52 Condition: improved 23:52 Discharge instructions given to patient, family, Instructed on discharge instructions, follow up and referral plans. Demonstrated understanding of instructions, follow-up care, medications, Prescriptions given X 3. 23:53 Patient left the ED. pf1 Signatures: Dispatcher [employer] EDMS Mae [place] Vanessa, RN RN vc1 Delilah Craven RN RN 3 Kelly Martinez RN RN pf1 Lj Leiva MD MD sp4 Anu Nieves RN RN cm10 Corrections: (The following items were deleted from the chart) 20:17 20:16 Breast exam. cm10 cm10 21:39 21:39 BP 130 / 68; Pulse 133bpm; Resp 24bpm; Pulse Ox 99% RA; eh3 eh3
[2022-09-05] MEDS ORDERED: SMZ./TMP. 800/160 MG TABLET ONE (23:36)
[2022-09-05 23:56] LABS: Blood Morphology Comment NOTED (NOT SEEN); Hypochromasia 1+; Platelet Estimate ADEQ
[2022-09-06 01:07] VITALS: TEMP 100.1
[2022-09-06 01:08] VITALS: BP 113/64; O2SAT 98
--- NOTE | 2022-09-06 20:22 | EKG ---
Test Date: 2022-09-05 Test Time: 20:19:42 General Maintenance Helper: ABDULLAHI MEASUREMENT RESULTS: Intervals: Rate: 129 NV: 166 QRSD: 80 QT: 296 QTc: 433 [place]: P: 60 NV: 166 QRS: 87 T: 39 INTERPRETIVE STATEMENTS: Sinus tachycardia Cannot rule out Anterior infarct, age undetermined Abnormal ECG Compared to ECG 07/28/2022 19:11:28 Myocardial infarct finding now present Sinus rhythm no longer present Electronically Signed On 09-06-22 20:21:39 CDT by Hema Shaw
== END 2022-09-05 23:53 | disposition home or self-care (01) ==
LOC: ER 19:41
DX: O91.23 Nonpurulent mastitis associated with lactation (principal); Z88.0 Allergy status to penicillin; Z88.5 Allergy status to narcotic agent; Z88.8 Allergy status to other drugs, medicaments and biological substances
CPT/HCPCS: 96365; 96367; 96361; 93005; 87040 ×2; 85025; 80048; 36415; 83735; 85610; 80076; 85730; 84484; 76882; 96375; 99285; J1200; J2405; J7050; J7030; J0696

== ENCOUNTER 2022-11-13 16:43 | Emergency (ER) | payer SELFPAY ==
--- NOTE | 2022-11-13 17:02 | EDPHYS ---
Physician Documentation [facility] Name: Sil Gyatan Age: 22 yrs Sex: Female : 2000 Arrival Date: 11/13/2022 Time: 16:43 Bed IW1 Private MD: ED Physician Aranza Goldstein HPI: 11/13 16:59 This 22 yrs old Female presents to ER via Ambulatory with complaints of High Blood kb Pressure, Dizziness, Headache. 16:59 Patient states she developed a headache 2 or 3 hours ago and it feels like the headaches that she has been her blood pressure is high. Patient has been not taking her blood pressure medication in over a month and does not have a monitor to check blood pressure at home so she came in to get it checked.. Historical: - Allergies: 16:52 Codeine; hb 16:52 PENICILLINS; hb 16:52 Prednisone; hb - PMHx: 16:52 Asthma; Hypertensive disorder; hb - PSHx: 16:52 ; hb - Immunization history:: Adult Immunizations up to date. - Social history:: Smoking status: . ROS: 16:59 Constitutional: Negative for fever, chills, and weight loss. kb 16:59 Neuro: Positive for headache. 16:59 All other systems are negative. Exam: 16:59 Constitutional: This is a well developed, well nourished patient who is awake, alert, kb and in no acute distress. Head/Face: Normocephalic, atraumatic. ENT: Moist Mucous membranes Cardiovascular: Regular rate Respiratory: Respirations even and unlabored. No increased work of breathing. Talking in full sentences Skin: Warm, dry with normal turgor. Normal color. MS/ Extremity: Pulses equal, no cyanosis. Neurovascular intact. Full, normal range of motion. Neuro: Awake and alert, GCS 15, oriented to person, place, time, and situation. Moves all extremities. Normal gait. Vital Signs: 16:53 BP 123 / 79; Pulse 88; Resp 16; Temp 98.5(TE); Pulse Ox 100% on R/A; Weight 81.65 kg; hb Height 5 ft. 6 in. ; Pain 10/10; 16:53 Body Mass Index 29.05 (81.65 kg, 167.64 cm) hb 16:53 Pain Scale: Adult hb MDM: 16:49 Patient medically screened. kb 17:00 Differential diagnosis: hypertensive crisis, Malignant HTN. Data reviewed: vital signs, kb nurses notes. Test considered but Not performed: EKG: EKG considered, but pt has no chest pain and BP normal. CT: CT head considered, but pt has no neuro deficits. Counseling: I had a detailed discussion with the patient and/or guardian regarding the historical points, exam findings, and any diagnostic results supporting the discharge/admit diagnosis, the need for outpatient follow up, a family practitioner, to return to the emergency department if symptoms worsen or persist or if there are any questions or concerns that arise at home. Administered Medications: 17:05 Drug: Ketorolac IM 30 mg Route: IM; Site: right deltoid; hb Disposition: 11/14 15:06 Co-signature as Attending Physician, Aranza Goldstein I agree with the assessment ci and plan of care. I reviewed the patient's care provided by the Advanced Practice Provider and agree with the diagnosis and treatment plan. Disposition Summary: 11/13/22 17:01 Discharge Ordered Location: Home kb Condition: Stable kb Diagnosis - Headache kb Followup: kb - With: Emergency Department - When: As needed - Reason: Worsening of condition Followup: kb - With: Private Physician - When: 2 - 3 days - Reason: Recheck today's complaints, Continuance of care, Re-evaluation by your physician Discharge Instructions: - Discharge Summary Sheet kb - General Headache Without Cause, [id number] kb Forms: - Medication Reconciliation Form kb - Thank You Letter kb - Antibiotic Education kb - Prescription Opioid Use kb - Patient Portal Instructions kb - Leadership Thank You Letter kb Signatures: Breanne Portillo FNP-C FNP-Ckb Baxter, Heather, RN RN Aranza Goldstein ci
--- NOTE | 2022-11-13 17:02 | ER ---
Nurse's Notes [facility] Name: Sil Gaytan Age: 22 yrs Sex: Female : 2000 Arrival Date: 11/13/2022 Time: 16:43 Bed IW1 Private MD: Diagnosis: Headache Presentation: 11/13 16:50 Chief complaint: Patient states: "I haven't been taking my blood pressure medicine for hb over a month, and I don't take it like I am supposed to, but I thin k it is up." Reports headache x 2 hours. Coronavirus screen: At this time, the client does not indicate any symptoms associated with coronavirus-19. Ebola Screen: No symptoms or risks identified at this time. Initial Sepsis Screen: Does the patient meet any 2 criteria? No. Patient's initial sepsis screen is negative. Does the patient have a suspected source of infection? No. Patient's initial sepsis screen is negative. Risk Assessment: Do you want to hurt yourself or someone else? Patient reports no desire to harm self or others. Onset of symptoms was November 13, 2022. 16:50 Method Of Arrival: Ambulatory hb 16:53 Acuity: DELMAR 4 hb Triage Assessment: 16:55 General: Appears in no apparent distress. Behavior is calm, cooperative. Pain: Pain hb currently is 10 out of 10 on a pain scale. Neuro: Level of Consciousness is awake, alert, obeys commands, Oriented to person, place, time, situation. Cardiovascular: Patient's skin is warm and dry. Respiratory: Respiratory effort is even, unlabored, Respiratory pattern is regular, symmetrical. Historical: - Allergies: 16:52 Codeine; hb 16:52 PENICILLINS; hb 16:52 Prednisone; hb - PMHx: 16:52 Asthma; Hypertensive disorder; hb - PSHx: 16:52 ; hb - Immunization history:: Adult Immunizations up to date. - Social history:: Smoking status: . Screenin:55 [facility] ED Fall Risk Assessment (Adult) Score/Fall Risk Level 0 - 2 = Low Risk hb Oriented to surroundings, Maintained a safe environment. Abuse screen: Denies threats or abuse. Denies injuries from another. Nutritional screening: No deficits noted. Tuberculosis screening: No symptoms or risk factors identified. Assessment: 16:55 General: See triage assessment . hb Vital Signs: 16:53 BP 123 / 79; Pulse 88; Resp 16; Temp 98.5(TE); Pulse Ox 100% on R/A; Weight 81.65 kg; hb Height 5 ft. 6 in. ; Pain 10/10; 16:53 Body Mass Index 29.05 (81.65 kg, 167.64 cm) hb 16:53 Pain Scale: Adult hb ED Course: 16:47 Patient arrived in ED. im 16:47 Breanne Portillo FNP-C is PHCP. kb 16:47 Aranza Goldstein is Attending Physician. kb 16:53 Triage completed. hb 16:53 Arm band placed on. hb 16:55 Patient has correct armband on for positive identification. Provided Education on: . hb 16:55 No provider procedures requiring assistance completed. Patient did not have IV access hb during this emergency room visit. Administered Medications: 17:05 Drug: Ketorolac IM 30 mg Route: IM; Site: right deltoid; hb Medication: 16:55 VIS not applicable for this client. hb Outcome: 17:01 Discharge ordered by . kb 17:05 Patient left the ED. hb Signatures: Breanne Portillo FNP-C FNP-Ckb Baxter, Heather, RN RN Eleonora Bravo Corrections: (The following items were deleted from the chart) 16:53 16:50 Chief complaint: Patient states: "I haven't been taking my blood pressure hb medicine for over a month, and I don't take it like I am supposed to, but I thin k it is up." Reports headache. hb 16:54 16:53 BP 123 / 79; Pulse 88bpm; Resp 16bpm; Pulse Ox 100% RA; hb hb
--- OUTSIDE RECORDS SUMMARY | 2022-11-13 17:06 | XMS REPORT | Continuity of Care Document ---
:2000 Author Organization [facility] t Address [address] [place] [address] Care Team Providers Name Role Phone TUSHAR LAN Primary Care Physician Unavailable KASEY BLANCO Attending Clinician Unavailable KASEY BLANCO Attending Clinician Unavailable TUSHAR LAN Attending Clinician Unavailable Tushar Villarreal Attending Clinician [phone] MOSHE AGOSTO Attending Clinician Unavailable Camilo, Ang-Rmchp Nurse Attending Clinician Unavailable HETAL NORRIS Attending Clinician Unavailable Hetal Norris MD Attending Clinician Patt Nova RN Attending Clinician Unavailable AUSTIN ARZOLA Attending Clinician Unavailable Austin Arzola MD Attending Clinician Doctor Unassigned, [place] Attending Clinician Unavailable Antonette Solano CNM Attending Clinician ANTONETTE SOLANO Attending Clinician Unavailable SHEREEN TRAVIS Attending Clinician Unavailable Risk, Dpz-Sxbkd-Ce/High Attending Clinician Unavailable Shereen Travis MD Attending Clinician Ultrasound, Ang-Mfm Attending Clinician Unavailable EDWIN CAGE Attending Clinician Unavailable Fauzia Edwin JASON Attending Clinician David Cooper DO Attending Clinician SARA SNYDER Attending Clinician Unavailable SARA SNYDER Attending Clinician Unavailable Provider, Ang-Rmchp Temp Attending Clinician Unavailable Ramo QUINONEZ, Niki Dominguez Attending Clinician NIKI RALPH Attending Clinician Unavailable JAM SAUNDERS Attending Clinician Unavailable CLINTON CRUMP Attending Clinician Unavailable Madonna QUINONEZ, Ernesto Rosario Attending Clinician ERNESTO PEACOCK Attending Clinician Unavailable Jamshid QUINONEZ, Rosio Attending Clinician Dylan Prieto MD Attending Clinician Fontantaz III, EXPEDITION[employer]HTING [employer]LE CREWMAN, R Attending Clinician Lab, Ang-Rmchp Attending Clinician [...] Effective Date Expiration Date S mer AMERIGR[employer] BEN [id number] 2021 00:00:00 Problems Condition Condition Condition Status Onset Resolution Last Treating Co mments Source Name Details Category Date Date Treatment Clinician Date Routine Routine Disease Active Univers 6-16 it y of follow[place]up [place] 00 [facility] Branch Disease Active Uni vers induced induced 6- ity of hypertensi hypertens[place] 00:[place], on, 00 Medical antepartum antepartum Br anch Disease Active U nivers state state 6-02 ity of 00:00: [place] [facility] Branch Obesity Obesity Disease Active Univers (BMI (BMI 5-28 ity of 30-39.9) 30-39.9) 00:00: Medical Branch Postoperat Postoperat Disease Active U nivers chris fever chris fever 5-28 ity of 00:00: [place] [facility] Branch Disease Active Univers premature premature 5-25 ity of rupture of rupture of 00:[place] membranes membranes 00 [facility] (PPROM) (PPROM) [place] with onset with onset of labor of labor within 24 within 24 hours of hours of rupture in rupture in third third trimester, trimester, antepartum antepartum 36 weeks 36 weeks Disease Active Unive rs gestation gestation 5-25 ity of of of 00:00: [place] 00 [facility] Liveborn Liveborn Disease Active Unive rs infant, of infant, of 5-25 it y of [place] 00:[place] , , 00 Me dical born [place] [facility] [place] [facility] by by delivery delivery UTI in UTI in Disease Active Overview: Univer s 5-24 Formattin i ty of 00:00: g of this 00 note Medical might be Branch different from the original. Per meds sent and patient notified Supervisio Supervisio Disease Active U nivers n of n of 3-02 ity of high-risk high-risk 00:[place] 00 [facility] Multiparit Multiparit Disease Active U nivers y y 3-02 ity of 00:00: [place] [address] Medical Branch History of History of Disease Active 2021-02 U nivers pre-eclamp pre-eclamp 0-27 it y of [place] in 00:00: [place] prior prior 00 Medical , , Br [...] Other Other Disease Active Univers general general 8- ity of counseling counseling [place] and advice and advice 00 Mn dical for for Branch contracept contracept chris chris management management Elevated Elevated Disease Active Unive rs blood blood 8- ity of pressure pressure 00:00: [place] reading reading 00 Medical without without Branch [...] Comments Source ASSERTION 2021-11-25 University of 00:00:00 [place] [facility] History SDOH University o f Alcohol Std [place] [facility] Drinks Branch History SDOH University o f Alcohol Binge [place] [facility] al Branch History [facility] o f Alcohol Comment [place] Med ical Branch Alcohol intake 2022-07-22 2022-07-22 Ex-drinker [facility] 00:00:00 00:00:00 (finding) [place] [facility] [place] Exposure to 2022-07-11 2022-07-21 Not sure [facility] SARS-CoV-2 00:00:00 10:35:00 [facility] (event) [place] Tobacco use and 2022-07-21 2022-07-21 Smokeless tobacco Un iversity of exposure 00:00:00 00:00:00 non-user [place] [facility] [place] History SDOH 2018-12-20 2018-12-20 1 University o f Alcohol Frequency 00:00:00 [facility]:00:[facility] [place] Sex Assigned At [birth year] Universit y of 00:00:00 00:00:00 [facility] Smoking Status Start Date Stop Date Source Never smoked tobacco [facility] Medications Ordered Filled Start Stop Current Ordering Indication Dosage Frequency Signature Comments Components Source Medication Medication Date Date Medication? Clinician (SIG) Name Name acetaminoph Yes 650mg 650 mg, Un odilon en 07-29 Oral, ity of (TYLENOL) 13:29: Q6HPRN, [place] tablet 650 04 Starting Medic al mg on Fri Branch 07/29/22 at 0829, Until Discontinu ed, Routine, Pain (scale 1-3), Pain (scale 4-6) labetaloL 2022-0 Yes 200mg 200 mg, Univ ers (NORMODYNE) 6-02 Oral, ity of tablet 200 06:00: Q12H, [place] mg 00 First dose Medical on Mon Branch 07/29/22 at 0100, Until Discontinu ed, Routine labetaloL 2022-0 Yes [id number] 200mg Take 1 U nivers 200 mg 6-02 tablet by ity of tablet 00:00: mouth [place] 00 every 12 Medical (twelve) Branch hours. labetaloL 2022-0 Yes [id number] 200mg Take 1 U nivers 200 mg 6-02 tablet by ity of tablet 00:00: mouth [place] 00 every 12 Medical (twelve) Branch hours. labetaloL 2022-0 Yes [id number] 200mg Take 1 U nivers 200 mg 6-02 tablet by ity of tablet 00:00: mouth [place] 00 every 12 Medical (twelve) Branch hours. labetaloL 2022-0 Yes [id number] 200mg Take 1 U nivers 200 mg 6-02 tablet by ity of tablet 00:00: mouth [place] 00 every 12 Medical (twelve) Branch hours. labetaloL 2022-0 Yes [id number] 200mg Take 1 U nivers 200 mg 6-02 tablet by ity of tablet 00:00: mouth [place] 00 every 12 Medical (twelve) Branch hours. labetaloL 2022-0 Yes [id number] 200mg Take 1 U nivers 200 mg 6-02 tablet by ity of tablet 00:00: mouth [place] 00 every 12 Medical (twelve) Branch hours. labetaloL 2022-0 Yes [id number] 200mg Take 1 U nivers 200 mg [...] First dose [place] mg 00 on [place] [facility] 07/24/22 at Branch 2000, Until Discontinu ed, Routine ceFAZolin 0 2022- No 1000mg 1,000 mg, Univers (ANCEF) 07-24 05-30 IV ity of 1,000 mg in 19:00: 18:59 [employer], [place] NaCl 0.9% 00 :00 Q8H ABX, 6 Medi lottie (NS) 100 mL doses, [place] MINI-BAG First dose (after last modificati on) [...] 2022-0 Yes 1{tbl} 1 tablet, Univers -acetaminop -28 Oral, ity of hen (NORCO 15:23: Q6HPRN, [place] 5) 5-325 mg 22 Starting Medi lottie tablet 1 on Sun Branch tablet 07/24/22 at 1023, Until Discontinu ed, Routine, Pain (scale 4-6), Alternate with Ibuprofen diphenhydrA 0 Yes 25mg 25 mg, Univ ers MINE 5 Slow IV ity of (BENADRYL) 15:21: Push, [place] injection 28 Q6HPRN, Medical 25 mg Starting Branch on 07/24/22 at 1021, Until Discontinu ed, Routine, Itching diphenhydrA 2022-0 Yes 25mg 25 mg, Univ ers MINE 5-28 Oral, ity of (BENADRYL) 15:21: Q6HPRN, [place] tablet 25 28 Starting Medica l mg on [facility] 07/24/22 at 1021, Until Discontinu ed, Routine, Sleep, Itching ondansetron 2022-0 Yes 4mg 4 mg, Slow Univers (ZOFRAN 07-24 IV Push, ity of (PF)) 15:21: Q8HPRN, [place] injection 4 28 Starting Medi lottie mg on [facility] 07/24/22 at 1021, Until Discontinu ed, Routine, Nausea and Vomiting (N/V) bisacodyL Yes 10mg 10 mg, Univer s (DULCOLAX) 07-24 Rectal, ity of suppository 15:21: QDAILYPRN, [place] 10 mg 28 Starting Medical on [place] Branch 07/24/22 at 1021, Until Discontinu ed, Routine, Constipati on simethicone Yes 160mg 160 mg, Un odilon (GAS RELIEF 07-24 Oral, ity of (SIMETHICON 15:21: PC+HSPRN, [place] E)) 28 Starting Medical chewable on [facility] tablet 160 07/24/22 at mg 1021, Until Discontinu ed, Routine, Gas docusate Yes 200mg 200 mg, Unive rs (COLACE) 07-24 Oral, ity of capsule 200 15:21: QDAILYPRN, [place] mg 28 Starting Medical on [facility] 07/24/22 at 1021, Until Discontinu ed, Routine, Constipati on magnesium 0 Yes 30mL 30 mL, Univer s hydroxide 07-24 Oral, ity of (MILK OF 15:21: QDAILYPRN, [place] MAGNESIA) 28 Starting Medica l 400 mg/5 mL on [facility] suspension 07/24/22 at 30 mL 1021, Until Discontinu ed, Routine, Constipati on lactated 2022-0 202- No 1000mL at 125 Univ ers ringers IV 07-24 05-28 mL/hr, ity of infusion 15:21: 16:25 1,000 mL, [place] 1,000 mL 28 :00 IV Medical Infusion, Branch PRN, 1 dose, Starting on [place] 07/24/22 at 1021, Until Discontinu ed, Routine No Take by Unive rs 25/iron 07-23 mouth. ity of fum/folic/d 12:50: 00:00 [place] betancur 40 :00 Medical (-1 Branch ORAL) HYDROcodone 2022- No 1{tbl} 1 tablet, Univers -acetaminop 07-23 Oral, ity of hen (NORCO 01:41: 01:40 Q6HPRN, [place] 5) 5-325 mg 26 :26 Starting Medi lottie tablet 1 on Mon Branch tablet 07/22/22 at 2040, Until 07/24/22 at 2039, Routine, Pain (scale 4-6) Nitrofurant 2022- No 100mg 100 mg, U nivers oin&Nit. 07-23 [...] uration of Therapy: 7 days Nitrofurant 2022- No 100mg 100 mg, U nivers oin&Nit. 07-23 [...]
D uration of Therapy: 7 days Yes [id number] 1{tbl} Take 1 Univers vitamin 07-23 tablet by ity of w/FA tablet 00:00: mouth [place] 00 the Medical morning. Branch docusate Yes [id number] 200mg Take 2 U nivers 100 mg 5-27 capsules ity of capsule 00:00: by mouth [place] 00 once daily Medical as needed Branch for Constipati on. ferrous 0 Yes [id number] 325mg Take 1 Un odilon sulfate 325 5-27 tablet by ity of mg (65 mg 00:00: [place] iron) 00 the Medical tablet morning Branch and 1 tablet in the evening. ibuprofen 0 Yes [id number] 600mg Take 1 Univers 600 mg 5-27 tablet by ity of tablet 00:00: mouth [place] 00 every 6 Medical (six) Branch hours as needed (Pain). Take with food or milk. Yes [id number] 1{tbl} Take 1 Univers vitamin 5-27 tablet by ity of w/FA tablet 00:00: mouth in [place] 00 the Medical morning. Branch docusate Yes [id number] 200mg Take 2 U nivers 100 mg 5-27 capsules ity of capsule 00:00: by mouth [place] 00 once daily Medical as needed Branch for Constipati on. ferrous Yes [id number] 325mg Take 1 Un odilon sulfate 325 5-27 tablet by ity of mg (65 mg 00:00: [place] iron) 00 the Medical tablet morning Branch and 1 tablet in the evening. Yes [id number] 1{tbl} Take 1 Univers vitamin 5-27 tablet by ity of w/FA tablet 00:00: mouth in [place] 00 the Medical morning. Branch docusate Yes [id number] 200mg Take 2 U nivers 100 mg 5-27 capsules ity of capsule 00:00: by mouth [place] 00 once daily Medical as needed Branch for Constipati on. ferrous Yes [id number] 325mg Take 1 Un odilon sulfate 325 5-27 tablet by ity of mg (65 mg 00:00: [place] iron[place] 00 the Medical tablet morning Branch and 1 tablet in the evening. 0 Yes [id number] 1{tbl} Take 1 Univers vitamin 5-27 tablet by ity of w/FA tablet 00:00: mouth in [place] 00 the Medical morning. Branch docusate 0 Yes [id number] 200mg Take 2 U nivers 100 mg 5-27 capsules ity of capsule 00:00: by mouth [place] 00 once daily Medical as needed Branch for Constipati on. ferrous 0 Yes [id number] 325mg Take 1 Un odilon sulfate 325 5-27 tablet by ity of mg (65 mg 00:00: [place] iron) 00 the Medical tablet morning Branch and 1 tablet in the evening. 0 Yes [id number] 1{tbl} Take 1 Univers vitamin 5-27 tablet by ity of w/FA tablet 00:00: mouth in [place] 00 the Medical morning. Branch docusate 0 Yes [id number] 200mg Take 2 U nivers 100 mg 5-27 capsules ity of capsule 00:00: by mouth [place] 00 once daily Medical as needed Branch for Constipati on. ferrous 0 Yes [id number] 325mg Take 1 Un odilon sulfate 325 5-27 tablet by ity of mg (65 mg 00:00: mouth [place] iron) 00 the Medical tablet morning Branch and 1 tablet in the evening. 0 Yes [id number] 1{tbl} Take 1 Univers vitamin 5-27 tablet by ity of w/FA tablet 00:00: mouth in [place] 00 the Medical morning. Branch docusate 0 Yes [id number] 200mg Take 2 U nivers 100 mg 5-27 capsules ity of capsule 00:00: by mouth [place] 00 once daily Medical as needed Branch for Constipati on. ferrous 2022-0 Yes [id number] 325mg Take 1 Un odilon sulfate 325 5-27 tablet by ity of mg (65 mg 00:00: [place] iron) 00 the Medical tablet morning Branch and 1 tablet in the evening. 0 Yes [id number] 1{tbl} Take 1 Univers vitamin 5-27 tablet by ity of w/FA tablet 00:00: mouth in [place] 00 the Medical morning. Branch docusate 0 Yes [id number] 200mg Take 2 U nivers 100 mg 5-27 capsules ity of capsule 00:00: by mouth [place] 00 once daily Medical as needed Branch for Constipati on. ferrous 0 Yes [id number] 325mg Take 1 Un odilon sulfate 325 5-27 tablet by ity of mg (65 mg 00:00: mouth [place] iron) 00 the Medical tablet morning Branch and 1 tablet in the evening. 0 Yes [id number] 1{tbl} Take 1 Univers vitamin 5-27 tablet by ity of w/FA tablet 00:00: mouth in [place] 00 the Medical morning. Branch docusate 0 Yes [id number] 200mg Take 2 U nivers 100 mg 5-27 capsules ity of capsule 00:00: by mouth [place] 00 once daily Medical as needed Branch for Constipati on. ferrous 0 Yes [id number] 325mg Take 1 Un odilon sulfate 325 5-27 tablet by ity of mg (65 mg 00:00: mouth [place] iron) 00 the Medical tablet morning Branch and 1 tablet in the evening. 0 Yes [id number] 1{tbl} Take 1 Univers vitamin 5-27 tablet by ity of w/FA tablet 00:00: mouth in [place] 00 the Medical morning. Branch docusate 0 Yes [id number] 200mg Take 2 U nivers 100 mg 5-27 capsules ity of capsule 00:00: by mouth [place] 00 once daily Medical as needed Branch for Constipati on. ferrous 0 Yes [id number] 325mg Take 1 Un odilon sulfate 325 5-27 tablet by ity of mg (65 mg 00:00: mouth [place] iron) 00 the Medical tablet morning Branch and 1 tablet in the evening. 2022-0 Yes [id number] 1{tbl} Take 1 Univers vitamin 5-27 tablet by ity of w/FA tablet 00:00: mouth in [place] 00 the Medical morning. Branch docusate 0 Yes [id number] 200mg Take 2 U nivers 100 mg 5-27 capsules ity of capsule 00:00: by mouth [place] 00 once daily Medical as needed Branch for Constipati on. ferrous 2022-0 Yes [id number] 325mg Take 1 Un odilon sulfate 325 5-27 tablet by ity of mg (65 mg 00:00: mouth [place] iron) 00 the Medical tablet morning Branch and 1 tablet in the evening. 2022-0 Yes [id number] 1{tbl} Take 1 Univers vitamin 5-27 tablet by ity of w/FA tablet 00:00: mouth in [place] 00 the Medical morning. Branch docusate Yes [id number] 200mg Take 2 U nivers 100 mg 5-27 capsules ity of capsule 00:00: by mouth [place] 00 once daily Medical as needed Branch for Constipati on. ferrous Yes [id number] 325mg Take 1 Un odilon sulfate 325 5-27 tablet by ity of mg (65 mg 00:00: mouth [place] iron) 00 the Medical tablet morning Branch and 1 tablet in the evening. Yes [id number] 1{tbl} Take 1 Univers vitamin 5-27 tablet by ity of w/FA tablet 00:00: mouth in [place] 00 the Medical morning. Branch docusate Yes [id number] 200mg Take 2 U nivers 100 mg 5-27 capsules ity of capsule 00:00: by mouth [place] 00 once daily Medical as needed Branch for Constipati on. ferrous Yes [id number] 325mg Take 1 Un od[place] sulfate 325 5-27 tablet by ity of mg (65 mg 00:00: mouth [place] iron) 00 the Medical tablet morning Branch and 1 tablet in the evening. HYDROcodone 2022- No [id number] 1{tbl} Take 1 U nivers -acetaminop 5-27 06-04 tablet by it y of hen 5-325 00:00: 04:59 mouth [place] mg tablet 00 :00 every 6 Medical (six) Branch hours as needed (Pain scale above 4) for up to 7 days. Do not exceed 3 grams of acetaminop hen in 24 hours. Indication s: acute pain ibuprofen 2022- No [id number] 600mg Take 1 Univers 600 mg 5-27 [...] 07-22 Oral, ity of (TYLENOL) 20:00: Q6HPRN, [place] tablet 650 00 Starting Medic al mg on Mon Branch 07/22/22 at 1500, Until Discontinu ed, Routine, Pain acetaminoph 2022-0 Yes 650mg 650 mg, Un odilon en 07-22 Oral, ity of (TYLENOL) 20:00: Q6HPRN, [place] tablet 650 00 Starting Medic al mg on Mon Branch 07/22/22 at 1500, Until Discontinu ed, Routine, Pain acetaminoph 2022-0 2022- No 1000mg 1,000 mg, Univers en [...] Medical Infusion, Branch ONCE, 1 dose, On [facility] Branch 07/21/22 at 1630, Routine diphenhydrA 2022-0 Yes 25mg 25 mg, Univ ers MINE 5-25 Slow IV ity of (BENADRYL) 20:34: Push, [place] injection 05 Q6HPRN, Medical 25 mg Starting Branch on [facility] Branch 07/21/22 at 1534, Until Discontinu ed, Routine, Itching diphenhydrA 2022-0 Yes 25mg 25 mg, Univ ers MINE 5-25 Oral, ity of (BENADRYL) 20:34: Q6HPRN, [place] tablet 25 05 Starting Medica l mg on [facility] Branch Branch 07/21/22 at 1534, Until Discontinu ed, Routine, Sleep, Itching ondansetron 2022-0 Yes 4mg 4 mg, Slow Univers (ZOFRAN 5-25 IV Push, ity of (PF)) 20:34: Q8HPRN, [place] injection 4 05 Starting Medi lottie mg on [facility] Branch Branch 07/21/22 at 1534, Until Discontinu ed, Routine, Nausea and Vomiting (N/V) bisacodyL 0 Yes 10mg 10 mg, Univer s (DULCOLAX) 5-25 Rectal, ity of suppository 20:34: QDAILYPRN, [place] 10 mg 05 Starting Medical on [facility] Branch Branch 07/21/22 at 1534, Until Discontinu ed, Routine, Constipati on simethicone 2022-0 Yes 160mg 160 mg, Un odilon (GAS RELIEF 5-25 Oral, ity of (SIMETHICON 20:34: PC+HSPRN, [place] E)) 05 Starting Medical chewable on [facility] Branch Branch tablet 160 07/21/22 at mg 1534, [...] 25 05 Starting Medica l mg on [facility] Branch Branch 07/21/22 at 1534, Until Discontinu ed, Routine, Sleep, Itching ondansetron 2022-0 Yes 4mg 4 mg, Slow Univers (ZOFRAN 5-25 IV Push, ity of (PF)) 20:34: Q8HPRN, [place] injection 4 05 Starting Medi lottie mg [...] ceFAZolin No 2000mg 2,000 mg, Univers (ANCEF) 07-21 IV ity of 2,000 mg in 19:30: 19:07 [facility], [place] NaCl 0.9% 00 :00 ONCE, 1 Medical (NS) 100 mL dose, On Bran ch MINI-BAG [place] 07/21/22 at 1430, Administer over 30 Minutes, 100 mL
Reas on for Anti-Infec tive: Surgical Prophylaxi s
Surgi lottie Prophylaxi s: Abdominal< br>Dura tion of therapy: within 24 hours of surgery terbutaline No .25mg 0.25 mg, Univers (BRETHINE) 07-2125 Subcutaneo it y of injection 16:37: 20:41 [place], Q15MIN [place] 0.25 mg 33 :35 PRN, 3 Medical doses, Branch Starting on [place] 07/21/22 at 1137, Until [place] 07/21/22 at 1541, Routine, Tachysysto le with NRFHT sodium 2022- No 30mL 30 mL, Univers citrate-cit 07-2125 Oral, ity of diego acid 16:32: 18:32 [...] 5-25 mouth. ity of fum/folic/d 11:32: [place] betacnur 19 Medical (-1 Branch ORAL) Nitrofurant 0 Yes [id number] 100mg Take 1 Univers oin&Nit. 5-23 capsule by ity o f Macrocryst 00:00: mouth in [place] 100 mg 00 the Medical capsule morning Branch and 1 capsule in the evening. Nitrofurant 0 Yes [id number] 100mg Take 1 Univers oin&Nit. 5-23 capsule by ity o f Macrocryst 00:00: mouth in [place] 100 mg 00 the Medical capsule morning Branch and 1 capsule in the evening. Nitrofurant 0 Yes [id number] 100mg Take 1 Univers oin&Nit. 5-23 capsule by ity o f Macrocryst 00:00: mouth in [place] 100 mg 00 the Medical capsule morning Branch and 1 capsule in the evening. Nitrofurant 2022- No [id number] 100mg Take 1 Univers oin&Nit. 5-23 05-28 capsule by ity of Macrocryst 00:00: 00:00 mouth in [place] 100 mg 00 :00 the Medical capsule morning Branch and 1 capsule in the evening. Yes Take by Univer s 25/iron 5-21 mouth. ity of fum/folic/d 12:50: [place] [facility] 57 Medical (-1 Branch ORAL) Yes Take by Univer s 25/iron 5-21 mouth. ity of fum/folic/d 12:50: [place] [facility] 57 Medical (-1 Branch ORAL) Yes Take by Univer s 25/iron 5-15 mouth. ity of fum/folic/d 03:19: [place] [facility] 16 Medical (-1 Branch ORAL) Yes Take by Univer s 25/iron 5-15 mouth. ity of fum/folic/d 03:19: [place] [facility] 16 Medical (-1 Branch ORAL) Yes Take by Univer s 25/iron 5-15 mouth. ity of fum/folic/d 03:19: [place] [facility] 16 Medical (-1 Branch ORAL) terbutaline 2022- No .25mg 0.25 mg, Univers (BRETHINE) 5-10 05-10 Subcutaneo it y of injection 08:45: 07:59 [place], ONCE, [place] 0.25 mg 00 :00 1 dose, On Medica l Mon Branch 07/06/22 at 0345, Routine NaCl 0.9% 2022- No 1000mL at 999 Uni vers (NS) bolus 5-10 05-10 mL/hr, ity of infusion 06:30: 06:30 1,000 mL, [place] 1,000 mL 00 :27 IV Medical Infusion, Branch ONCE, 1 dose, On Mon07/06/22 at 0130, STAT Yes Take by Univer s 25/iron 5-10 mouth. ity of fum/folic/d 05:26: [place] [facility] 51 Medical (-1 Branch ORAL) 0 Yes Take by Univer s 25/iron 5-10 mouth. ity of fum/folic/d 05:26: [place] [facility] 51 Medical (-1 Branch ORAL) Yes Take by Univer s 25/iron 5-10 mouth. ity of fum/folic/d 05:26: [place] [facility] 51 Medical (-1 Branch ORAL) metroNIDAZO 2023-0 2023- No [id number] 500mg Take 1 Univers LE 500 mg 2-16 -24 tablet by ity of tablet 00:00: 05:59 mouth in [place] 00 :[address] [facility] Branch and 1 tablet in the evening. Do all this for 7 days. metroNIDAZO 2023-0 2023- No [id number] 500mg Take 1 Univers LE 500 mg 2-16 -24 tablet by ity of tablet 00:00: 05:59 mouth in [place] 00 :[address] [facility] Branch and 1 tablet in the evening. Do all this for 7 days. metroNIDAZO 2023-0 2023- No [id number] 500mg Take 1 Univers LE 500 mg 2-16 -24 tablet by ity of tablet 00:00: 05:59 mouth in [place] 00 :00 the [facility] and 1 tablet in the evening. Do all this for 7 days. metroNIDAZO 2023-0 2023- No [id number] 500mg Take 1 Univers LE 500 mg 2-16 -24 tablet by ity of tablet 00:00: 05:59 mouth in [place] 00 :00 the [facility] and 1 tablet in the evening. Do all this for 7 days. metroNIDAZO 2023-0 2023- No [id number] 500mg Take 1 Univers LE 500 mg 216 -24 tablet by ity of tablet 00:00: 05:59 mouth in [place] 00 :00 the [facility] and 1 tablet in the evening. Do all this for 7 days. hydroxyprog 2023-0 3- No [id number] 275mg Univers esterone(PF 03-31 ity of ) (KATHLEEN 06:00: 04:59 [place] AUTO-INJECT 00 :00 Medical OR) 275 Branch mg/1.1 mL injection 275 mg hydroxyprog 2023-0 2023- No [id number] 275mg Univers esterone(PF 03-31 ity of ) (KATHLEEN 06:00: 04:59 [place] AUTO-INJECT 00 :00 Medical OR) 275 Branch mg/1.1 mL injection 275 mg hydroxyprog 2023-0 2023- No [id number] 275mg 275 mg, Univers esterone(PF 03-31 Subcutaneo i ty of ) (KATHLEEN 06:00: 04:59 us, [place] AUTO-INJECT 00 :00 QWEEKLY, [facility] OR) 275 16 doses, Branch mg/1.1 mL First dose injection on [place] 275 mg 03/31/22 at 0000, Last dose on [place] 07/14/22 at 0000, Routine hydroxyprog 2023-0 2023- No [id number] 275mg Univers esterone(PF 03-31 ity of ) (KATHLEEN 06:00: 04:59 [place] AUTO-INJECT 00 :00 Medical OR) 275 Branch mg/1.1 mL injection 275 mg hydroxyprog 2023-0 2023- No [id number] 275mg 275 mg, Univers esterone(PF 03-31 Subcutaneo i ty of ) (KATHLEEN 06:00: 04:59 , [place] AUTO-INJECT 00 :00 QWEEKLY, [facility] OR) 275 16 doses, Branch mg/1.1 mL First dose injection on [place] 275 mg 03/31/22 at 0000, Last dose on [place] 07/14/22 at 0000, Routine hydroxyprog 2023-0 2023- No [id number] 275mg Univers esterone(PF 03-31 ity of ) (KATHLEEN 06:00: 04:59 [place] AUTO-INJECT 00 :00 Medical OR) 275 Branch mg/1.1 mL injection 275 mg hydroxyprog 2023-0 2023- No [id number] 275mg Univers esterone(PF 03-31 ity of ) (KATHLEEN 06:00: 04:59 [place] AUTO-INJECT 00 :00 Medical OR) 275 Branch mg/1.1 mL injection 275 mg hydroxyprog 2023-0 2023- No [id number] 275mg [facility](PF 03-3125 ity of ) (KATHLEEN 06:00: 04:59 [place] AUTO-INJECT 00 :00 Medical OR) 275 Branch mg/1.1 mL injection 275 mg hydroxyprog 2023-0 2023- No [id number] 275mg [facility](PF 207-21 ity of ) (KATHLEEN 06:00: 04:59 [place] AUTO-INJECT 00 :00 Medical OR) 275 Branch mg/1.1 mL injection 275 mg hydroxyprog 2023-0 2023- No [id number] 275mg [facility](PF 225 ity of ) (KATHLEEN 06:00: 04:59 [place] AUTO-INJECT 00 :00 Medical OR) 275 Branch mg/1.1 mL injection 275 mg hydroxyprog 2023-0 2023- No [id number] 275mg 275 mg, [facility] ester[facility](PF 03-31 Subcutaneo i ty of ) (KATHLEEN 06:00: 04:59 us, [place] AUTO-INJECT 00 :00 QWEEKLY, Medi lottie OR) 275 16 doses, Branch mg/1.1 mL First dose injection on Alissa 275 mg 03/31/22 at 0000, Last dose on [place]issa 07/14/22 at 0000, Routine hydroxyprog 2023-0 2023- No [id number] 275mg [facility](PF 03-31 ity of ) (KATHLEEN 06:00: 04:59 [place] AUTO-INJECT 00 :00 Medical OR) 275 Branch mg/1.1 mL injection 275 mg hydroxyprog 2023-0 2023- No [id number] 275mg [facility](PF 03-31 ity of ) (KATHLEEN 06:00: 04:59 [place] AUTO-INJECT 00 :00 Medical OR) 275 Branch mg/1.1 mL injection 275 mg hydroxyprog 2023-0 2023- No [id number] 275mg [facility](PF 03-31 ity of ) (KATHLEEN 06:00: 04:59 [place] AUTO-INJECT 00 :00 Medical OR) 275 Branch mg/1.1 mL injection 275 mg hydroxyprog 2023-0 2023- No [id number] 275mg 275 mg, [facility](PF 03-31 Subcutaneo i ty of ) (KATHLEEN 06:00: 04:59 us, [place] AUTO-INJECT 00 :00 QWEEKLY, [facility] lottie OR) 275 16 doses, Branch mg/1.1 mL First dose injection on Alissa 275 mg 03/31/22 at 0000, Last dose on [place] 07/14/22 at 0000, Routine hydroxyprog 2023-0 2023- No [id number] 275mg [facility](PF 03-31 ity of ) (KATHLEEN 06:00: 04:59 [place] AUTO-INJECT 00 :00 Medical OR) 275 Branch mg/1.1 mL injection 275 mg hydroxyprog 2023-0 2023- No [id number] 275mg 275 mg, [facility](PF 03-31 Subcutaneo i ty of ) (KATHLEEN 06:00: 04:59 us, [place] AUTO-INJECT 00 :00 QWEEKLY, [facility] OR) 275 16 doses, Branch mg/1.1 mL First dose injection on Alissa 275 mg 03/31/22 at 0000, Last dose on [place] 07/14/22 at 0000, Routine hydroxyprog 2023-0 2023- No [id number] 275mg [facility](PF 03-31 ity of ) (KATHLEEN 06:00: 04:59 [place] AUTO-INJECT 00 :00 Medical OR) 275 Branch mg/1.1 mL injection 275 mg hydroxyprog 2023-0 2023- No [id number] 275mg 275 mg, [facility](PF 03-31 Subcutaneo i ty of ) (KATHLEEN 06:00: 04:59 us, [place] AUTO-INJECT 00 :00 QWEEKLY, [facility] OR) 275 16 doses, Branch mg/1.1 mL First dose injection on [place] 275 mg 03/31/22 at 0000, Last dose on [place] 07/14/22 at 0000, Routine hydroxyprog 2023-0 2023- No [id number] 275mg [facility](PF 03-31 ity of ) (KATHLEEN 06:00: 04:59 [place] AUTO-INJECT 00 :00 Medical OR) 275 Branch mg/1.1 mL injection 275 mg hydroxyprog 2023-0 2023- No [id number] 275mg 275 mg, [facility](PF 03-31 Subcutaneo i ty of ) (KATHLEEN 06:00: 04:59 us, [place] AUTO-INJECT 00 :00 QWEEKLY, [facility] OR) 275 16 doses, Branch mg/1.1 mL First dose injection on [place] 275 mg 03/31/22 at 0000, Last dose on [place] 07/14/22 at 0000, Routine hydroxyprog 2023-0 2023- No [id number] 275mg [facility](PF 03-31 ity of ) (KATHLEEN 06:00: 04:59 [place] AUTO-INJECT 00 :00 Medical OR) 275 Branch mg/1.1 mL injection 275 mg hydroxyprog 2023-0 2023- No [id number] 275mg [facility](PF 03-31 ity of ) (KATHLEEN 06:00: 04:59 [place] AUTO-INJECT 00 :00 Medical OR) 275 Branch mg/1.1 mL injection 275 mg hydroxyprog 2023-0 2023- No [id number] 275mg 275 mg, [facility] ester[facility](PF 03-31 Subcutaneo i ty of ) (KATHLEEN 06:00: 04:59 us, [place] AUTO-INJECT 00 :00 QWEEKLY, [facility] OR) 275 16 doses, Branch mg/1.1 mL First dose injection on [place] 275 mg 03/31/22 at 0000, Last dose on [place] 07/14/22 at 0000, Routine hydroxyprog 2023-0 2023- No [id number] 275mg [facility](PF 03-31 ity of ) (KATHLEEN 06:00: 04:59 [place] AUTO-INJECT 00 :00 Medical OR) 275 Branch mg/1.1 mL injection 275 mg hydroxyprog 2023-0 2023- No [id number] 275mg 275 mg, [facility] ester[facility](PF 03-31 Subcutaneo i ty of ) (KATHLEEN 06:00: 04:59 us, [place] AUTO-INJECT 00 :00 QWEEKLY, [facility] OR) 275 16 doses, Branch mg/1.1 mL First dose injection on [place] 275 mg 03/31/22 at 0000, Last dose on [place] 07/14/22 at 0000, Routine hydroxyprog 2023-0 2023- No [id number] 275mg [facility](PF 03-31 ity of ) (KATHLEEN 06:00: 04:59 [place] AUTO-INJECT 00 :00 Medical OR) 275 Branch mg/1.1 mL injection 275 mg hydroxyprog 2023-0 2023- No [id number] 275mg 275 mg, [facility](PF 03-31 Subcutaneo i ty of ) (KATHLEEN 06:00: 04:59 us, [place] AUTO-INJECT 00 :00 QWEEKLY, [facility] OR) 275 16 doses, Branch mg/1.1 mL First dose injection on [place] 275 mg 03/31/22 at 0000, Last dose on [place] 07/14/22 at 0000, Routine hydroxyprog 2023-0 2023- No [id number] 275mg [facility](PF 03-31 ity of ) (KATHLEEN 06:00: 04:59 [place] AUTO-INJECT 00 :00 Medical OR) 275 Branch mg/1.1 mL injection 275 mg hydroxyprog 2023-0 2023- No [id number] 275mg 275 mg, [facility](PF 03-31 Subcutaneo i ty of ) (KATHLEEN 06:00: 04:59 us, [place] AUTO-INJECT 00 :00 QWEEKLY, [facility] OR) 275 16 doses, Branch mg/1.1 mL First dose injection on [place] 275 mg 03/31/22 at 0000, Last dose on [place] 07/14/22 at 0000, Routine hydroxyprog 2023-0 2023- No [id number] 275mg [facility](PF 03-31 ity of ) (KATHLEEN 06:00: 04:59 [place] AUTO-INJECT 00 :00 Medical OR) 275 Branch mg/1.1 mL injection 275 mg hydroxyprog 2023-0 2023- No [id number] 275mg 275 mg, [facility] ester[facility](PF 03-31 Subcutaneo i ty of ) (KATHLEEN 06:00: 04:59 us, [place] AUTO-INJECT 00 :00 QWEEKLY, [facility] OR) 275 16 doses, Branch mg/1.1 mL First dose injection on [place] 275 mg 03/31/22 at 0000, Last dose on [place] 07/14/22 at 0000, Routine hydroxyprog 2023-0 2023- No [id number] 275mg [facility](PF 03-31 ity of ) (KATHLEEN 06:00: 04:59 [place] AUTO-INJECT 00 :00 Medical OR) 275 Branch mg/1.1 mL injection 275 mg hydroxyprog 2023-0 2023- No [id number] 275mg 275 mg, [facility] ester[facility](PF 03-3125 Subcutaneo i ty of ) (KATHLEEN 06:00: 04:59 us, [place] AUTO-INJECT 00 :00 QWEEKLY, [facility] OR) 275 16 doses, Branch mg/1.1 mL First dose injection on [place] 275 mg 03/31/22 at 0000, Last dose on [place] 07/14/22 at 0000, Routine hydroxyprog 2023-0 2023- No [id number] 275mg [facility](PF 03-31 ity of ) (KATHLEEN 06:00: :59 [place] AUTO-INJECT 00 :00 Medical OR) 275 Branch mg/1.1 mL injection 275 mg hydroxyprog 2023-0 2023- No [id number] 275mg [facility](PF 03-31 ity of ) (KATHLEEN 06:: 04:59 [place] AUTO-INJECT 00 :00 Medical OR) 275 Branch mg/1.1 mL injection 275 mg hydroxyprog 2023-0 2023- No [id number] 275mg [facility](PF 03-31 ity of ) (KATHLEEN 06:: 04:59 [place] AUTO-INJECT 00 :00 Medical OR) 275 Branch mg/1.1 mL injection 275 mg hydroxyprog 2023-0 2023- No [id number] 275mg [facility](PF 03-31 ity of ) (KATHLEEN 06:: :59 [place] AUTO-INJECT 00 :00 Medical OR) 275 Branch mg/1.1 mL injection 275 mg hydroxyprog 2023-0 2023- No [id number] 275mg [facility](PF 03-31 ity of ) (KATHLEEN 06:: :59 [place] AUTO-INJECT 00 :00 Medical OR) 275 Branch mg/1.1 mL injection 275 mg hydroxyprog 2023-0 2023- No [id number] 275mg [facility](PF 03-31 ity of ) (KATHLEEN 06:: :59 [place] AUTO-INJECT 00 :00 Medical OR) 275 Branch mg/1.1 mL injection 275 mg hydroxyprog 2023-0 2023- No [id number] 275mg [facility](PF 03-31 ity of ) (KATHLEEN 06:: :59 [place] AUTO-INJECT 00 :00 Medical OR) 275 Branch mg/1.1 mL injection 275 mg hydroxyprog 2023-0 2023- No [id number] 275mg [facility](PF 03-31 ity of ) (KATHLEEN 06:00: 04:59 [place] AUTO-INJECT 00 :00 Medical OR) 275 Branch mg/1.1 mL injection 275 mg hydroxyprog 2023-0 2023- No [id number] 275mg [facility](PF 03-31 ity of ) (KATHLEEN 06:00: 04:59 [place] AUTO-INJECT 00 :00 Medical OR) 275 Branch mg/1.1 mL injection 275 mg hydroxyprog 2023-0 2023- No [id number] 275mg [facility](PF 03-31 ity of ) (KATHLEEN 06:00: 04:59 [place] AUTO-INJECT 00 :00 Medical OR) 275 Branch mg/1.1 mL injection 275 mg hydroxyprog 2023-0 2023- No [id number] 275mg [facility](PF 03-31 ity of ) (KATHLEEN 06:00: 04:59 [place] AUTO-INJECT 00 :00 Medical OR) 275 Branch mg/1.1 mL injection 275 mg hydroxyprog 2023-0 2023- No [id number] 275mg [facility](PF 03-24 ity of ) (KATHLEEN 16:45: 15:59 [place] AUTO-INJECT 00 :00 Medical OR) 275 Branch mg/1.1 mL injection 275 mg hydroxyprog 2023-0 2023- No [id number] 275mg 275 mg, [facility] ester[facility](PF 03-24 Subcutaneo i ty of ) (KATHLEEN 16:45: 15:59 [place]-INJECT 00 :00 1 [...] weekly. Medical injection Branch hydroxyprog 2023-0 Yes [id number] 275mg inject 1.1 [facility] ester[facility],PF 1-09 mL under ity of , 275 00:00: the skin [place] mg/1.1 mL 00 weekly. Medical injection Branch hydroxyprog 2023-0 Yes 275mg inject 1.1 [facility] ester[facility],PF 1-09 mL under ity of , 275 00:00: the skin [place] mg/1.1 mL 00 weekly. Medical injection Branch hydroxyprog 2023-0 Yes [id number] 275mg inject 1.1 [facility] ester[facility],PF 1-09 mL under ity of , 275 00:00: the skin [place] mg/1.1 mL 00 weekly. Medical injection Branch hydroxyprog 2023-0 Yes 275mg inject 1.1 [facility] ester[facility],PF 1-09 mL under ity of , 275 00:00: the skin [place] mg/1.1 mL 00 weekly. Medical injection Branch hydroxyprog 2023-0 Yes [id number] 275mg inject 1.1 [facility] ester[facility],PF 1-09 mL under ity of , 275 00:00: the skin [place] mg/1.1 mL 00 weekly. Medical injection Branch hydroxyprog 2023-0 Yes 275mg inject 1.1 [facility] ester[facility],PF 1-09 mL under ity of , 275 00:00: the skin [place] mg/1.1 mL 00 weekly. Medical injection Branch hydroxyprog 2023-0 Yes [id number] 275mg inject 1.1 [facility] ester[facility],PF 1-09 mL under ity of , 275 00:00: the skin [place] mg/1.1 mL 00 weekly. Medical injection Branch hydroxyprog 2023-0 Yes 275mg inject 1.1 [facility] ester[facility],PF 1-09 mL under ity of , 275 00:00: the skin [place] mg/1.1 mL 00 weekly. Medical injection Branch hydroxyprog 2023-0 Yes [id number] 275mg inject 1.1 [facility] ester[facility],PF 1-09 mL under ity of , 275 00:00: the skin [place] mg/1.1 mL 00 weekly. Medical injection Branch hydroxyprog 2023-0 Yes 275mg inject 1.1 [facility] ester[facility],PF 1-09 mL under ity of , 275 00:00: the skin [place] mg/1.1 mL 00 weekly. Medical injection Branch hydroxyprog 2023-0 Yes [id number] 275mg inject 1.1 [facility] ester[facility],PF 1-09 mL under ity of , 275 00:00: the skin [place] mg/1.1 mL 00 weekly. Medical injection Branch hydroxyprog 2023-0 Yes 275mg inject 1.1 [facility] ester[facility],PF 1-09 mL under ity of , 275 00:00: the skin [place] mg/1.1 mL 00 weekly. Medical injection Branch hydroxyprog 2023-0 Yes [id number] 275mg inject 1.1 [facility] ester[facility],PF 1-09 mL under ity of , 275 00:00: the skin [place] mg/1.1 mL 00 weekly. Medical injection Branch hydroxyprog 2023-0 Yes 275mg inject 1.1 [facility] ester[facility],PF 1-09 mL under ity of , 275 00:00: the skin [place] mg/1.1 mL 00 weekly. Medical injection Branch hydroxyprog 2023-0 Yes [id number] 275mg inject 1.1 [facility] ester[facility],PF 1-09 mL under ity of , 275 00:00: the skin [place] mg/1.1 mL 00 weekly. Medical injection Branch hydroxyprog 2023-0 Yes 275mg inject 1.1 [facility] ester[facility],PF 1-09 mL under ity of , 275 00:00: the skin [place] mg/1.1 mL 00 weekly. Medical injection Branch hydroxyprog 2023-0 Yes [id number] 275mg inject 1.1 [facility] ester[facility],PF 1-09 mL under ity of , 275 00:00: the skin [place] mg/1.1 mL 00 weekly. Medical injection Branch hydroxyprog 2023-0 Yes 275mg inject 1.1 [facility] ester[facility],PF 1-09 mL under ity of , 275 00:00: the skin [place] mg/1.1 mL 00 weekly. Medical injection Branch hydroxyprog 2023-0 Yes [id number] 275mg inject 1.1 [facility] ester[facility],PF 1-09 mL under ity of , 275 00:00: the skin [place] mg/1.1 mL 00 weekly. Medical injection Branch hydroxyprog 2023-0 Yes 275mg inject 1.1 [facility] ester[facility],PF 1-09 mL under ity of , 275 00:00: the skin [place] mg/1.1 mL 00 weekly. Medical injection Branch hydroxyprog 2023-0 Yes [id number] 275mg inject 1.1 [facility] ester[facility],PF 1-09 mL under ity of , 275 00:00: the skin [place] mg/1.1 mL 00 weekly. Medical injection Branch hydroxyprog 2023-0 Yes 275mg inject 1.1 [facility] ester[facility],PF 1-09 mL under ity of , 275 00:00: the skin [place] mg/1.1 mL 00 weekly. Medical injection Branch hydroxyprog 2023-0 Yes [id number] 275mg inject 1.1 [facility] ester[facility],PF 1-09 mL under ity of , 275 00:00: the skin [place] mg/1.1 mL 00 weekly. Medical injection Branch hydroxyprog 2023-0 Yes 275mg inject 1.1 [facility] ester[facility],PF 1-09 mL under ity of , 275 00:00: the skin [place] mg/1.1 mL 00 weekly. Medical injection Branch hydroxyprog 2023-0 Yes [id number] 275mg inject 1.1 [facility] ester[facility],PF 1-09 mL under ity of , 275 00:00: the skin [place] mg/1.1 mL 00 weekly. Medical injection Branch hydroxyprog 2023-0 Yes 275mg inject 1.1 [facility] ester[facility],PF 1-09 mL under ity of , 275 00:00: the skin [place] mg/1.1 mL 00 weekly. Medical injection Branch hydroxyprog 2023-0 Yes [id number] 275mg inject 1.1 [facility] ester[facility],PF 1-09 mL under ity of , 275 00:00: the skin [place] mg/1.1 mL 00 weekly. Medical injection Branch hydroxyprog 2023-0 Yes 275mg inject 1.1 [facility] ester[facility],PF 1-09 mL under ity of , 275 00:00: the skin [place] mg/1.1 mL 00 weekly. Medical injection Branch hydroxyprog 2023-0 Yes [id number] 275mg inject 1.1 [facility] ester[facility],PF 1-09 mL under ity of , 275 00:00: the skin [place] mg/1.1 mL 00 weekly. Medical injection Branch hydroxyprog 2023-0 Yes 275mg inject 1.1 [facility] ester[facility],PF 1-09 mL under ity of , 275 00:00: the skin [place] mg/1.1 mL 00 weekly. Medical injection Branch hydroxyprog 2023-0 Yes [id number] 275mg inject 1.1 [facility] ester[facility],PF 1-09 mL under ity of , 275 00:00: the skin [place] mg/1.1 mL 00 weekly. Medical injection Branch hydroxyprog 2023-0 Yes 275mg inject 1.1 [facility] ester[facility],PF 1-09 mL under ity of , 275 00:00: the skin [place] mg/1.1 mL 00 weekly. Medical injection Branch hydroxyprog 2023-0 Yes [id number] 275mg inject 1.1 [facility] ester[facility],PF 1-09 mL under ity of , 275 00:00: the skin [place] mg/1.1 mL 00 weekly. Medical injection Branch hydroxyprog 2023-0 Yes 275mg inject 1.1 [facility] ester[facility],PF 1-09 mL under ity of , 275 00:00: the skin [place] mg/1.1 mL 00 weekly. Medical injection Branch hydroxyprog 2023-0 Yes [id number] 275mg inject 1.1 [facility] ester[facility],PF 1-09 mL under ity of , 275 00:00: the skin [place] mg/1.1 mL 00 weekly. Medical injection Branch hydroxyprog 2023-0 Yes 275mg inject 1.1 [facility] ester[facility],PF 1-09 mL under ity of , 275 00:00: the skin [place] mg/1.1 mL 00 weekly. Medical injection Branch hydroxyprog 2023-0 Yes [id number] 275mg inject 1.1 [facility] ester[facility],PF 1-09 mL under ity of , 275 00:00: the skin [place] mg/1.1 mL 00 weekly. Medical injection Branch hydroxyprog 2023-0 Yes 275mg inject 1.1 [facility] ester[facility],PF 1-09 mL under ity of , 275 00:00: the skin [place] mg/1.1 mL 00 weekly. Medical injection Branch hydroxyprog 2023-0 Yes [id number] 275mg inject 1.1 [facility] ester[facility],PF 1-09 mL under ity of , 275 00:00: the skin [place] mg/1.1 mL 00 weekly. Medical injection Branch hydroxyprog 2023-0 Yes 275mg inject 1.1 [facility] ester[facility],PF 1-09 mL under ity of , 275 00:00: the skin [place] mg/1.1 mL 00 weekly. Medical injection Branch hydroxyprog 2023-0 Yes [id number] 275mg inject 1.1 [facility] ester[facility],PF 1-09 mL under ity of , 275 00:00: the skin [place] mg/1.1 mL 00 weekly. Medical injection Branch hydroxyprog 2023-0 Yes 275mg inject 1.1 [facility] ester[facility],PF 1-09 mL under ity of , 275 00:00: the skin [place] mg/1.1 mL 00 weekly. Medical injection Branch hydroxyprog 2023-0 Yes [id number] 275mg inject 1.1 [facility] ester[facility],PF 1-09 mL under ity of , 275 00:00: the skin [place] mg/1.1 mL 00 weekly. Medical injection Branch hydroxyprog 2023-0 Yes 275mg inject 1.1 [facility] ester[facility],PF 1-09 mL under ity of , 275 00:00: the skin [place] mg/1.1 mL 00 weekly. Medical injection Branch hydroxyprog 2023-0 Yes [id number] 275mg inject 1.1 [facility] ester[facility],PF 1-09 mL under ity of , 275 00:00: the skin [place] mg/1.1 mL 00 weekly. Medical injection Branch hydroxyprog 2023-0 Yes 275mg inject 1.1 [facility] ester[facility],PF 1-09 mL under ity of , 275 00:00: the skin [place] mg/1.1 mL 00 weekly. Medical injection Branch hydroxyprog 2023-0 Yes [id number] 275mg inject 1.1 [facility] ester[facility],PF 1-09 mL under ity of , 275 00:00: the skin [place] mg/1.1 mL 00 weekly. Medical injection Branch hydroxyprog 2023-0 Yes 275mg inject 1.1 [facility] ester[facility],PF 1-09 mL under ity of , 275 00:00: the skin [place] mg/1.1 mL 00 weekly. Medical injection Branch hydroxyprog 2023-0 Yes [id number] 275mg inject 1.1 [facility] ester[facility],PF 1-09 mL under ity of , 275 00:00: the skin [place] mg/1.1 mL 00 weekly. Medical injection Branch hydroxyprog 2023-0 Yes 275mg inject 1.1 [facility] ester[facility],PF 1-09 mL under ity of , 275 00:00: the skin [place] mg/1.1 mL 00 weekly. Medical injection Branch hydroxyprog 2023-0 Yes [id number] 275mg inject 1.1 [facility] ester[facility],PF 1-09 mL under ity of , 275 00:00: the skin [place] mg/1.1 mL 00 weekly. Medical injection Branch hydroxyprog 2023-0 Yes 275mg inject 1.1 [facility] ester[facility],PF 1-09 mL under ity of , 275 00:00: the skin [place] mg/1.1 mL 00 weekly. Medical injection Branch hydroxyprog 2023-0 Yes [id number] 275mg inject 1.1 [facility] ester[facility],PF 1-09 mL under ity of , 275 00:00: the skin [place] mg/1.1 mL 00 weekly. Medical injection Branch hydroxyprog 2023-0 Yes 275mg inject 1.1 [facility] ester[facility],PF 1-09 mL under ity of , 275 00:00: the skin [place] mg/1.1 mL 00 weekly. Medical injection Branch hydroxyprog 2023-0 Yes [id number] 275mg inject 1.1 [facility] ester[facility],PF 1-09 mL under ity of , 275 00:00: the skin [place] mg/1.1 mL 00 weekly. Medical injection Branch hydroxyprog 2023-0 Yes 275mg inject 1.1 [facility] ester[facility],PF 1-09 mL under ity of , 275 00:00: the skin [place] mg/1.1 mL 00 weekly. Medical injection Branch hydroxyprog 2023-0 Yes [id number] 275mg inject 1.1 [facility] ester[facility],PF 1-09 mL under ity of , 275 00:00: the skin [place] mg/1.1 mL 00 weekly. Medical injection Branch hydroxyprog 2023-0 Yes 275mg inject 1.1 [facility] ester[facility],PF 1-09 mL under ity of , 275 00:00: the skin [place] mg/1.1 mL 00 weekly. Medical injection Branch hydroxyprog 2023-0 Yes [id number] 275mg inject 1.1 [facility] ester[facility],PF 1-09 mL under ity of , 275 00:00: the skin [place] mg/1.1 mL 00 weekly. Medical injection Branch hydroxyprog 2023-0 Yes 275mg inject 1.1 [facility] ester[facility],PF 1-09 mL under ity of , 275 00:00: the skin [place] mg/1.1 mL 00 weekly. Medical injection Branch hydroxyprog 2023-0 Yes [id number] 275mg inject 1.1 [facility] ester[facility],PF 1-09 mL under ity of , 275 00:00: the skin [place] mg/1.1 mL 00 weekly. Medical injection Branch hydroxyprog 2023-0 Yes 275mg inject 1.1 [facility] ester[facility],PF 1-09 mL under ity of , 275 00:00: the skin [place] mg/1.1 mL 00 weekly. Medical injection Branch hydroxyprog 2023-0 Yes [id number] 275mg inject 1.1 [facility] ester[facility],PF 1-09 mL under ity of , 275 00:00: the skin [place] mg/1.1 mL 00 weekly. Medical injection Branch hydroxyprog 2023-0 Yes 275mg inject 1.1 [facility] ester[facility],PF 1-09 mL under ity of , 275 00:00: the skin [place] mg/1.1 mL 00 weekly. Medical injection Branch hydroxyprog 2023-0 Yes [id number] 275mg inject 1.1 [facility] ester[facility],PF 1-09 mL under ity of , 275 00:00: the skin [place] mg/1.1 mL 00 weekly. Medical injection Branch hydroxyprog 2023-0 Yes 275mg inject 1.1 [facility] ester[facility],PF 1-09 mL under ity of , 275 00:00: the skin [place] mg/1.1 mL 00 weekly. Medical injection Branch hydroxyprog 2023-0 Yes [id number] 275mg inject 1.1 [facility] ester[facility],PF 1-09 mL under ity of , 275 00:00: the skin [place] mg/1.1 mL 00 weekly. Medical injection Branch hydroxyprog 2023-0 Yes 275mg inject 1.1 [facility] ester[facility],PF 1-09 mL under ity of , 275 00:00: the skin [place] mg/1.1 mL 00 weekly. Medical injection Branch hydroxyprog 2023-0 Yes [id number] 275mg inject 1.1 [facility] ester[facility],PF 1-09 mL under ity of , 275 00:00: the skin [place] mg/1.1 mL 00 weekly. Medical injection Branch hydroxyprog 2023-0 Yes 275mg inject 1.1 [facility] ester[facility],PF 1-09 mL under ity of , 275 00:00: the skin [place] mg/1.1 mL 00 weekly. Medical injection Branch hydroxyprog 2023-0 Yes [id number] 275mg inject 1.1 [facility] ester[facility],PF 1-09 mL under ity of , 275 00:00: the skin [place] mg/1.1 mL 00 weekly. Medical injection Branch hydroxyprog 2023-0 2023- No 275mg inject 1.1 [facility] ester[facility],PF 1-09 05-25 mL under ity of , 275 00:00: 00:00 the skin [place] mg/1.1 mL 00 :00 weekly. Medical injection Branch hydroxyprog 2023-0 2023- No [id number] 275mg inject 1.1 [facility] ester[facility],PF 1- 05-25 mL under ity of , 275 00:00: 00:00 the skin [place] mg/1.1 mL 00 :00 weekly. Medical injection Branch hydroxyprog 2022- No 275mg inject 1.1 [facility] ester[facility],PF 1- 05-25 mL under ity of , 275 00:00: 00:00 the skin [place] mg/1.1 mL 00 :00 weekly. Medical injection Branch hydroxyprog 2022- No [id number] 275mg inject 1.1 [facility] ester[facility],PF 1- 05-25 mL under ity of , 275 00:00: 00:00 the skin [place] mg/1.1 mL 00 :00 weekly. Medical injection Branch hydroxyprog 2021-02 Yes [id number] 250mg 1 mL by [facility] ity o f caproate, 00:00: lar route Jamal as ppres, 250 00 weekly. Medica l mg/mL Branch injection hydroxyprog 2021-02- No [id number] 250mg 1 mL by [facility] - [facility] ity of caproate, 00:00: 00:00 lar [...] (1 mL) Branch injection hydroxyprog 2021-02 Yes [id number] 250mg 1 mL by [facility] 2-15 [facility] ity o f 250 mg/mL 00:00: lar route [place] as injection 00 weekly. Medical Branch hydroxyprog 2021-02 Yes [id number] 250mg 1 mL by [facility] ester[facility] 2-15 [facility] ity o f 250 mg/mL 00:00: lar route [place] as injection 00 weekly. Medical Branch hydroxyprog 2021-02- No [id number] 250mg 1 mL by [facility] ester[facility] 2-15 [...] mouth. ity of fum/folic/d 09:26: [facility] Medical (-1 Branch ORAL) 2021-02 Yes Take by Univer [facility] 25/iron 0-13 mouth. ity of fum/folic/d 09:26: [place] [address] Medical (-1 Branch ORAL) 2021-02 Yes Take by Univer s 25/iron 0-13 mouth. ity of fum/folic/d 09:26: [place] [address] Medical (-1 Branch ORAL) 2021-02 Yes Take by Univer [facility] 25/iron 0-13 mouth. ity of fum/folic/d 09:26: [place] [address] Medical (-1 Branch ORAL) 2021-02 Yes Take by Univer [facility] 25/iron 0-13 mouth. ity of fum/folic/d 09:26: [place] [address] Medical (-1 Branch ORAL) 2021-02 Yes Take by Univer [facility] 25/iron 0-13 mouth. ity of fum/folic/d 09:26: [facility] 35 Medical (-1 Branch ORAL) 2021-02 Yes Take by Univer s 25/iron 0-13 mouth. ity of fum/folic/d 09:26: [facility] 35 Medical (-1 Branch ORAL) 2021-02 Yes Take by Univer s 25/iron 0-13 mouth. ity of fum/folic/d 09:26: [facility] 35 Medical (-1 Branch ORAL) 2021-02 Yes Take by Univer s 25/iron 0-13 mouth. ity of fum/folic/d 09:26: [facility] 35 Medical (-1 Branch ORAL) 2021-02 Yes Take by Univer s 25/iron 0-13 mouth. ity of fum/folic/d 09:26: [facility] 35 Medical (-1 Branch ORAL) 2021-02 Yes Take by Univer s 25/iron 0-13 mouth. ity of fum/folic/d 09:26: [facility] 35 Medical (-1 Branch ORAL) 2021-02 Yes Take by Univer s 25/iron 0-13 mouth. ity of fum/folic/d 09:26: [facility] 35 Medical (-1 Branch ORAL) 2021-02 Yes Take by Univer s 25/iron 0-13 mouth. ity of fum/folic/d 09:26: [place] [facility] 35 Medical (-1 Branch ORAL) 2021-02 Yes Take by Univer s 25/iron 0-13 mouth. ity of fum/folic/d 09:26: [facility] 35 Medical (-1 Branch ORAL) 2021-02 Yes Take by Univer s 25/iron 0-13 mouth. ity of fum/folic/d 09:26: [place] [address] Medical (-1 Branch ORAL) 2021-02 Yes Take by Univer s 25/iron 0-13 mouth. ity of fum/folic/d 09:26: [place] [address] Medical (-1 Branch ORAL) 2021-02 Yes Take by Univer s 25/iron 0-13 mouth. ity of fum/folic/d 09:26: [place] [address] Medical (-1 Branch ORAL) 2021-02 Yes Take by Univer s 25/iron 0-13 mouth. ity of fum/folic/d 09:26: [place] [address] Medical (-1 Branch ORAL) 2021-02 Yes Take by Univer s 25/iron 0-13 mouth. ity of fum/folic/d 09:26: [facility] 35 Medical (-1 Branch ORAL) 2021-02 Yes Take by Univer s 25/iron 0-13 mouth. ity of fum/folic/d 09:26: [facility] 35 Medical (-1 Branch ORAL) 2021-02 Yes Take by Univer s 25/iron 0-13 mouth. ity of fum/folic/d 09:26: [facility] 35 Medical (-1 Branch ORAL) 2021-02 Yes Take by Univer s 25/iron 0-13 mouth. ity of fum/folic/d 09:26: [facility] 35 Medical (-1 Branch ORAL) 2021-02 Yes Take by Univer s 25/iron 0-13 mouth. ity of fum/folic/d 09:26: [facility] 35 Medical (-1 Branch ORAL) 2021-02 Yes Take by Univer s 25/iron 0-13 mouth. ity of fum/folic/d 09:26: [facility] 35 Medical (-1 Branch ORAL) 2021-02 Yes Take by Unive rs 25/iron 0-13 mouth. ity of fum/folic/d 09:26: [place] [address] Medical (-1 Branch ORAL) 2021-02 Yes Take by Univer s 25/iron 0-13 mouth. ity of fum/folic/d 09:26: [place] [address] Medical (-1 Branch ORAL) 2021-02 Yes Take by Univer s 25/iron 0-13 mouth. ity of fum/folic/d 09:26: [place] [address] Medical (-1 Branch ORAL) 2021-02 Yes Take by Univer s 25/iron 0-13 mouth. ity of fum/folic/d 09:26: [place] [address] Medical (-1 Branch ORAL) 2021-02 Yes Take by Univer s 25/iron 0-13 mouth. ity of fum/folic/d 09:26: [place] [address] Medical (-1 Branch ORAL) 2021-02 Yes Take by Univer s 25/iron 0-13 mouth. ity of fum/folic/d 09:26: [place] [address] Medical (-1 Branch ORAL) 2021-02 Yes Take by Univer s 25/iron 0-13 mouth. ity of fum/folic/d 09:26: [place] [address] Medical (-1 Branch ORAL) 2021-02 Yes Take by Univer s 25/iron 0-13 mouth. ity of fum/folic/d 09:26: [facility] 35 Medical (-1 Branch ORAL) 2021-02 Yes Take by Univer s 25/iron 0-13 mouth. ity of fum/folic/d 09:26: [facility] 35 Medical (-1 Branch ORAL) 2021-02 Yes Take by Univer s 25/iron 0-13 mouth. ity of fum/folic/d 09:26: [place] [facility] Medical (-1 Branch ORAL) 2021-02 Yes Take by Univer s 25/iron 0-13 mouth. ity of fum/folic/d 09:26: [facility] 35 Medical (-1 Branch ORAL) 2021-02 Yes Take by Univer s 25/iron 0-13 mouth. ity of fum/folic/d 09:26: [facility] 35 Medical (-1 Branch ORAL) 2021-02 Yes Take by Univer s 25/iron 0-13 mouth. ity of fum/folic/d 09:26: [place] 35 Medical (-1 Branch ORAL) 2021-02 Yes Take by Univer s 25/iron 0-13 mouth. ity of fum/folic/d 09:26: [facility] 35 Medical (-1 Branch ORAL) 2021-02 Yes Take by Univer s 25/iron 0-13 mouth. ity of fum/folic/d 09:26: [place] [address] Medical (-1 Branch ORAL) 2021-02 Yes Take by Univer s 25/iron 0-13 mouth. ity of fum/folic/d 09:26: [place] [address] Medical (-1 Branch ORAL) 2021-02 Yes Take by Univer s 25/iron 0-13 mouth. ity of fum/folic/d 09:26: [facility] 35 Medical (-1 Branch ORAL) PROAIR HFA [...] [place] on inhaler Medical Branch PROAIR HFA 2022-0 Yes Univers [...] inhaler 00 Medical Branch PROAIR HFA 0 3- No Univer s 90 8-30 05-27 ity of mcg/actuati 00:00: 00:00 [place] on inhaler 00 :00 Medical Branch norgestimat 0 Yes [id number]{tbl} Take 1 Univers e-ethinyl 8-16 tablet by ity o f estradioL [place]TRI-[place]PRINT 00 the [facility]) morning. Branch 0.18/0.215/ 0.25 mg-35 mcg (28) tablet norgestimat 2021- No [id number] 1{tbl} Take 1 Univers e-ethinyl 8-16 10-13 tablet by ity of estradioL 00:00: 00:00 mouth in [place] (TRI-SPRINT 00 :00 the Medical EC) morning. Branch 0.18/0.215/ 0.25 mg-35 mcg (28) tablet norgestimat 2020-02 Yes [id number]{tbl} Take 1 Univers e-ethinyl 1-22 tablet by ity o f estradioL 00:00: mouth [place] (ORTHO 00 daily. Medical TRI-CYCLEN, Branch 28,) 0.18/0.215/ 0.25 mg-35 mcg (28) tablet norgestimat 2020-02- No [id number]{tbl} Take 1 Univers e-ethinyl 1-22 10-13 tablet by ity of estradioL 00:00: 00:00 mouth [place] (ORTHO 00 :00 daily. Medical TRI-CYCLEN, Branch 28,) 0.18/0.215/ 0.25 mg-35 mcg (28) tablet Immunizations Ordered Immunization Filled Immunization Date Status Commen ts Source Name Name [facility] 2022-05-26 Completed University of 00:00:00 [facility] TDAP 2022-05-26 Completed University of 00:00:00 [facility] TDAP 2022-05-26 Completed University of 00:00:00 [facility] TDAP 2022-05-26 Completed University of 00:00:00 [facility] TDAP 2022-05-26 Completed University of 00:00:00 [facility] TDAP 2022-05-26 Completed University of 00:00:00 [facility] TDAP 2022-05-26 Completed University of 00:00:00 [facility] TDAP 2022-05-26 Completed University of 00:00: [facility] TDAP 2022-05-26 Completed University of 00:00:00 [facility] TDAP 2022-05-26 Completed University of 00:00:00 [facility] TDAP 2022-05-26 Completed University of 00:00:00 [facility] TDAP 2022-05-26 Completed University of 00:00:00 [place] [facility] TDAP 2022-05-26 Completed University of 00:00:00 [place] [facility] TDAP 2022-05-26 Completed University of 00:00:00 [place] [facility] TDAP 2022-05-26 Completed University of 00:00:00 [place] [facility] TDAP 2022-05-26 Completed University of 00:00:00 [facility] TDAP 2022-05-26 Completed University of 00:00:00 [place] [facility] TDAP 2022-05-26 Completed University of 00:00:00 [place] [facility] TDAP 2022-05-26 Completed University of 00:00:00 [place] [facility] TDAP 2022-05-26 Completed University of 00:00:00 [place] [facility] TDAP 2022-05-26 Completed University of 00:00:00 [place] [facility] TDAP 2022-05-26 Completed University of 00:00:00 [facility] TDAP 2022-05-26 Completed University of 00:00:00 [facility] TDAP 2022-05-26 Completed University of 00:00:00 [facility] TDAP 2022-05-26 Completed University of 00:00:00 [facility] TDAP 2022-05-26 Completed University of 00:00:00 [facility] TDAP 2020-06-09 Completed University of 00:00:00 [facility] TDAP 2020-06-09 Completed University of 00:00:00 [facility] TDAP 2020-06-09 Completed University of 00:00:00 [facility] TDAP 2020-06-09 Completed University of 00:00:00 [place] [facility] TDAP 2020-06-09 Completed University of 00:00:00 [place] [facility] TDAP 2020-06-09 Completed University of 00:00:00 [place] [facility] TDAP 2020-06-09 Completed University of 00:00:00 [place] [facility] TDAP 2020-06-09 Completed University of 00:00:00 [place] [facility] TDAP 2020-06-09 Completed University of 00:00:00 [place] [facility] TDAP 2020-06-09 Completed University of 00:00:00 [place] [facility] TDAP 2020-06-09 Completed University of 00:00:00 [place] [facility] TDAP 2020-06-09 Completed University of 00:00:00 [place] [facility] TDAP 2020-06-09 Completed University of 00:00:00 [place] [facility] TDAP 2020-06-09 Completed University of 00:00:00 [place] [facility] TDAP 2020-06-09 Completed University of 00:00:00 [place] [facility] TDAP 2020-06-09 Completed University of 00:00:00 [place] [facility] TDAP 2020-06-09 Completed University of 00:00:00 [place] [facility] TDAP 2020-06-09 Completed University of 00:00:00 [place] [facility] TDAP 2020-06-09 Completed University of 00:00:00 [place] [facility] TDAP 2020-06-09 Completed University of 00:00:00 [place] [facility] TDAP 2020-06-09 Completed University of 00:00:00 [place] [facility] TDAP 2020-06-09 Completed University of 00:00:00 [place] [facility] TDAP 2020-06-09 Completed University of 00:00:00 [place] [facility] TDAP 2020-06-09 Completed University of 00:00:00 [place] [facility] TDAP 2020-06-09 Completed University of 00:00:00 [place] [facility] TDAP 2020-06-09 Completed University of 00:00:00 [place] [facility] TDAP 2020-06-09 Completed University of 00:00:00 [place] [facility] TDAP 2020-06-09 Completed University of 00:00:00 [place] [facility] TDAP 2020-06-09 Completed University of 00:00:00 [facility] TDAP 2020-06-09 Completed University of 00:00:00 [place] [facility] TDAP 2020-06-09 Completed University of 00:00:00 [place] [facility] TDAP 2020-06-09 Completed University of 00:00:00 [place] [facility] TDAP 2020-06-09 Completed University of 00:00:00 [place] [facility] TDAP 2020-06-09 Completed University of 00:00:00 [place] [facility] TDAP 2020-06-09 Completed University of 00:00:00 [place] [facility] TDAP 2020-06-09 Completed University of 00:00:00 [place] [facility] TDAP 2020-06-09 Completed University of 00:00:00 [place] [facility] TDAP 2020-06-09 Completed University of 00:00:00 [facility] TDAP 2020-06-09 Completed University of 00:00:00 [facility] TDAP 2020-06-09 Completed University of 00:00:00 [facility] TDAP 2020-06-09 Completed University of 00:00:00 [facility] TDAP 2020-06-09 Completed University of 00:00:00 [facility] TDAP 2020-06-09 Completed University of 00:00:00 [facility] TDAP 2020-06-09 Completed University of 00:00:00 [facility] TDAP 2020-06-09 Completed University of 00:00:00 [facility] TDAP 2020-06-09 Completed University of 00:00:00 [facility] TDAP 2020-06-09 Completed University of 00:00:00 [facility] TDAP 2020-06-09 Completed University of 00:00:00 [facility] TDAP 2020-06-09 Completed University of 00:00:00 [facility] TDAP 2020-06-09 Completed University of 00:00:00 [facility] TDAP 2020-06-09 Completed University of 00:00:00 [facility] TDAP 2020-06-09 Completed University of 00:00:00 [facility] TDAP 2020-06-09 Completed University of 00:00:00 [facility] TDAP 2020-06-09 Completed University of 00:00:00 [facility] TDAP 2020-06-09 Completed University of 00:00:00 [facility] TDAP 2020-06-09 Completed University of 00:00:00 [facility] TDAP 2020-06-09 Completed University of 00:00:00 [facility] TDAP 2020-06-09 Completed University of 00:00:00 [facility] TDAP 2020-06-09 Completed University of 00:00:00 [facility] TDAP 2020-06-09 Completed University of 00:00:00 [facility] TDAP 2020-06-09 Completed University of 00:00:00 [facility] TDAP 2020-06-09 Completed University of 00:00:00 [facility] TDAP 2020-06-09 Completed University of 00:00:00 [facility] Influenza Virus 2020-01-21 Completed Universit y of [...] Uni versity of 00:00:00 [facility] TDAP 2018-10-18 Completed University of 00:00:00 [facility] Meningococcal B, OMV 2018-10-18 Completed Univ ersity of 00:00:00 [facility] Meningococcal Vaccine 2018-10-18 Completed Uni versity of 00:00:00 [facility] TDAP 2018-10-18 Completed University of 00:00:00 [facility] Meningococcal B, OMV 2018-10-18 Completed Univ ersity of 00:00:00 [place] [facility] Meningococcal Vaccine 2018-10-18 Completed Uni versity of 00:00:00 [place] [facility] TDAP 2018-10-18 Completed University of 00:00:00 [facility] Meningococcal B, OMV 2018-10-18 Completed Univ ersity of 00:00:00 [place] [facility] Meningococcal Vaccine 2018-10-18 Completed Uni versity of 00:00:00 [facility] TDAP 2018-10-18 Completed University of 00:00:00 [facility] Meningococcal B, OMV 2018-10-18 Completed Univ ersity of 00:00:00 [place] [facility] Meningococcal Vaccine 2018-10-18 Completed Uni versity of 00:00:00 [facility] TDAP 2018-10-18 Completed University of 00:00:00 [facility] Meningococcal B, OMV 2018-10-18 Completed Univ ersity of 00:00:00 [facility] Meningococcal Vaccine 2018-10-18 Completed Uni versity of 00:00:00 [facility] TDAP 2018-10-18 Completed University of 00:00:00 [facility] Meningococcal B, OMV 2018-10-18 Completed Univ ersity of 00:00:00 [facility] Meningococcal Vaccine 2018-10-18 Completed Uni versity of 00:00:00 [facility] TDAP 2018-10-18 Completed University of 00:00:00 [facility] Meningococcal B, OMV 2018-10-18 Completed Univ ersity of 00:00:00 [facility] Meningococcal Vaccine 2018-10-18 Completed Uni versity of 00:00:00 [facility] TDAP 2018-10-18 Completed University of 00:00:00 [facility] Meningococcal B, OMV 2018-10-18 Completed Univ ersity of 00:00:00 [place] [facility] Meningococcal Vaccine 2018-10-18 Completed Uni versity of 00:00:00 [place] [facility] TDAP 2018-10-18 Completed University of 00:00:00 [place] [facility] Meningococcal B, OMV 2018-10-18 Completed Univ ersity of 00:00:00 [place] [facility] Meningococcal Vaccine 2018-10-18 Completed Uni versity of 00:00:00 [facility] TDAP 2018-10-18 Completed University of 00:00:00 [facility] Meningococcal B, OMV 2018-10-18 Completed Univ ersity of 00:00:00 [place] [facility] Meningococcal Vaccine 2018-10-18 Completed Uni versity of 00:00:00 [place] [facility] TDAP 2018-10-18 Completed University of 00:00:00 [facility] Meningococcal B, OMV 2018-10-18 Completed Univ ersity of 00:00:00 [place] [facility] Meningococcal Vaccine 2018-10-18 Completed Uni versity of 00:00:00 [facility] TDAP 2018-10-18 Completed University of 00:00:00 [facility] Meningococcal B, OMV 2018-10-18 Completed Univ ersity of 00:00:00 [place] [facility] Meningococcal Vaccine 2018-10-18 Completed Uni versity of 00:00:00 [facility] TDAP 2018-10-18 Completed University of 00:00:00 [facility] Meningococcal B, OMV 2018-10-18 Completed Univ ersity of 00:00:00 [place] [facility] Meningococcal Vaccine 2018-10-18 Completed Uni versity of 00:00:00 [facility] TDAP 2018-10-18 Completed University of 00:00:00 [facility] Meningococcal B, OMV 2018-10-18 Completed Univ ersity of 00:00:00 [facility] Meningococcal Vaccine 2018-10-18 Completed Uni versity of 00:00:00 [facility] TDAP 2018-10-18 Completed University of 00:00:00 [facility] Meningococcal B, OMV 2018-10-18 Completed Univ ersity of 00:00:00 [facility] Meningococcal Vaccine 2018-10-18 Completed Uni versity of 00:00:00 [facility] TDAP 2018-10-18 Completed University of 00:00:00 [facility] Meningococcal B, OMV 2018-10-18 Completed Univ ersity of 00:00:00 [place] [facility] Meningococcal Vaccine 2018-10-18 Completed Uni versity of 00:00:00 [place] [facility] TDAP 2018-10-18 Completed University of 00:00:00 [place] [facility] Meningococcal B, OMV 2018-10-18 Completed Univ ersity of 00:00:00 [place] [facility] Meningococcal Vaccine 2018-10-18 Completed Uni versity of 00:00:00 [facility] TDAP 2018-10-18 Completed University of 00:00:00 [facility] Meningococcal B, OMV 2018-10-18 Completed Univ ersity of 00:00:00 [place] [facility] Meningococcal Vaccine 2018-10-18 Completed Uni versity of 00:00:00 [place] [facility] TDAP 2018-10-18 Completed University of 00:00:00 [facility] Meningococcal B, OMV 2018-10-18 Completed Univ ersity of 00:00:00 [place] [facility] Meningococcal Vaccine 2018-10-18 Completed Uni versity of 00:00:00 [facility] TDAP 2018-10-18 Completed University of 00:00:00 [facility] Meningococcal B, OMV 2018-10-18 Completed Univ ersity of 00:00:00 [place] [facility] Meningococcal Vaccine 2018-10-18 Completed Uni versity of 00:00:00 [facility] TDAP 2018-10-18 Completed University of 00:00:00 [facility] Meningococcal B, OMV 2018-10-18 Completed Univ ersity of 00:00:00 [place] [facility] Meningococcal Vaccine 2018-10-18 Completed Uni versity of 00:00:00 [facility] TDAP 2018-10-18 Completed University of 00:00:00 [facility] Meningococcal B, OMV 2018-10-18 Completed Univ ersity of 00:00:00 [place] [facility] Meningococcal Vaccine 2018-10-18 Completed Uni versity of 00:00:00 [facility] TDAP 2018-10-18 Completed University of 00:00:00 [facility] Meningococcal B, OMV 2018-10-18 Completed Univ ersity of 00:00:00 [facility] Meningococcal Vaccine 2018-10-18 Completed Uni versity of 00:00:00 [facility] TDAP 2018-10-18 Completed University of 00:00:00 [facility] Meningococcal B, OMV 2018-10-18 Completed Univ ersity of 00:00:00 [place] [facility] Meningococcal Vaccine 2018-10-18 Completed Uni versity of 00:00:00 [place] [facility] TDAP 2018-10-18 Completed University of 00:00:00 [place] [facility] Meningococcal B, OMV 2018-10-18 Completed Univ ersity of 00:00:00 [place] [facility] Meningococcal Vaccine 2018-10-18 Completed Uni versity of 00:00:00 [place] [facility] TDAP 2018-10-18 Completed University of 00:00:00 [facility] Meningococcal B, OMV 2018-10-18 Completed Univ ersity of 00:00:00 [place] [facility] Meningococcal Vaccine 2018-10-18 Completed Uni versity of 00:00:00 [place] [facility] TDAP 2018-10-18 Completed University of 00:00:00 [facility] Meningococcal B, OMV 2018-10-18 Completed Univ ersity of 00:00:00 [place] [facility] Meningococcal Vaccine 2018-10-18 Completed Uni versity of 00:00:00 [place] [facility] TDAP 2018-10-18 Completed University of 00:00:00 [facility] Meningococcal B, OMV 2018-10-18 Completed Univ ersity of 00:00:00 [place] [facility] Meningococcal Vaccine 2018-10-18 Completed Uni versity of 00:00:00 [facility] TDAP 2018-10-18 Completed University of 00:00:00 [facility] Meningococcal B, OMV 2018-10-18 Completed Univ ersity of 00:00:00 [place] [facility] Meningococcal Vaccine 2018-10-18 Completed Uni versity of 00:00:00 [place] [facility] TDAP 2018-10-18 Completed University of 00:00:00 [facility] Meningococcal B, OMV 2018-10-18 Completed Univ ersity of 00:00:00 [place] [facility] Meningococcal Vaccine 2018-10-18 Completed Uni versity of 00:00:00 [facility] TDAP 2018-10-18 Completed University of 00:00:00 [facility] Meningococcal B, OMV 2018-10-18 Completed Univ ersity of 00:00:00 [facility] Meningococcal Vaccine 2018-10-18 Completed Uni versity of 00:00:00 [facility] TDAP 2018-10-18 Completed University of 00:00:00 [facility] Meningococcal B, OMV 2018-10-18 Completed Univ ersity of 00:00:00 [place] [facility] Meningococcal Vaccine 2018-10-18 Completed Uni versity of 00:00:00 [place] [facility] TDAP 2018-10-18 Completed University of 00:00:00 [place] [facility] Meningococcal B, OMV 2018-10-18 Completed Univ ersity of 00:00:00 [place] [facility] Meningococcal Vaccine 2018-10-18 Completed Uni versity of 00:00:00 [place] [facility] TDAP 2018-10-18 Completed University of 00:00:00 [facility] Meningococcal B, OMV 2018-10-18 Completed Univ ersity of 00:00:00 [facility] Meningococcal Vaccine 2018-10-18 Completed Uni versity of 00:00:00 [facility] TDAP 2018-10-18 Completed University of 00:00:00 [facility] Meningococcal B, OMV 2018-10-18 Completed Univ ersity of 00:00:00 [facility] Meningococcal Vaccine 2018-10-18 Completed Uni versity of 00:00:00 [facility] TDAP 2018-10-18 Completed University of 00:00:00 [facility] Meningococcal B, OMV 2018-10-18 Completed Univ ersity of 00:00:00 [facility] Meningococcal Vaccine 2018-10-18 Completed Uni versity of 00:00:00 [facility] TDAP 2018-10-18 Completed University of 00:00:00 [facility] Meningococcal B, OMV 2018-10-18 Completed Univ ersity of 00:00:00 [facility] Meningococcal Vaccine 2018-10-18 Completed Uni versity of 00:00:00 [facility] TDAP 2018-10-18 Completed University of 00:00:00 [facility] Meningococcal B, OMV 2018-10-18 Completed Univ ersity of 00:00:00 [facility] Meningococcal 2018-10-18 Completed University of Polysaccharide 00:00:00 [place] [facility] (groups A, C, Y and Branc h W-135) conjugate vaccine (MCV4P) Meningococcal Vaccine 2018-10-18 Completed Uni versity of 00:00:00 [facility] TDAP 2018-10-18 Completed University of 00:00:00 [facility] Meningococcal B, OMV 2018-10-18 Completed Univ ersity of 00:00:00 [facility] Meningococcal 2018-10-18 Completed University of Polysaccharide 00:00:00 [place] [facility] (groups A, C, Y and Branc h W-135) conjugate vaccine (MCV4P) Meningococcal Vaccine 2018-10-18 Completed Uni versity of 00:00:00 [facility] TDAP 2018-10-18 Completed University of 00:00:00 [facility] Meningococcal B, OMV 2018-10-18 Completed Univ ersity of 00:00:00 [facility] Meningococcal 2018-10-18 Completed University of Polysaccharide 00:00:00 [place] [facility] (groups A, C, Y and Branc h W-135) conjugate vaccine (MCV4P) Meningococcal Vaccine 2018-10-18 Completed Uni versity of 00:00:00 [facility] TDAP 2018-10-18 Completed University of 00:00:00 [facility] Meningococcal B, OMV 2018-10-18 Completed Univ ersity of 00:00:00 [facility] Meningococcal 2018-10-18 Completed University of Polysaccharide 00:00:00 [place] [facility] (groups A, C, Y and Branc h W-135) conjugate vaccine (MCV4P) Meningococcal Vaccine 2018-10-18 Completed [facility] 00:00:00 [facility] TDAP 2018-10-18 Completed [facility] 00:00:00 [facility] Meningococcal B, OMV 2018-10-18 Completed [facility] 00:00:00 [facility] Meningococcal 2018-10-18 Completed [facility] Polysaccharide 00:00:00 [facility] (groups A, C, Y and Branc h W-135) conjugate vaccine (MCV4P) Meningococcal Vaccine 2018-10-18 Completed [facility] 00:00:00 [facility] TDAP 2018-10-18 Completed [facility] 00:00:00 [facility] Meningococcal B, OMV 2018-10-18 Completed [facility] 00:00:00 [facility] Meningococcal 2018-10-18 Completed [facility] Polysaccharide 00:00:00 [place] [facility] (groups A, C, Y and Branc h W-135) conjugate vaccine (MCV4P) Meningococcal Vaccine 2018-10-18 Completed [facility] 00:00:00 [facility] TDAP 2018-10-18 Completed [facility] 00:00:00 [facility] Meningococcal B, OMV 2018-10-18 Completed [facility] 00:00:00 [facility] Meningococcal 2018-10-18 Completed [facility] Polysaccharide 00:00:00 [facility] (groups A, C, Y and Branc h W-135) conjugate vaccine (MCV4P) Meningococcal Vaccine 2018-10-18 Completed [facility] 00:00:00 [facility] TDAP 2018-10-18 Completed [facility] 00:00:00 [facility] Meningococcal B, OMV 2018-10-18 Completed [facility] 00:00:00 [facility] Meningococcal 2018-10-18 Completed [facility] Polysaccharide 00:00:00 [facility] (groups A, C, Y and Branc h W-135) conjugate vaccine (MCV4P) Meningococcal Vaccine 2018-10-18 Completed [facility] 00:00:00 [facility] TDAP 2018-10-18 Completed [facility] 00:00:00 [facility] Meningococcal B, OMV 2018-10-18 Completed [facility] 00:00:00 [facility] Meningococcal 2018-10-18 Completed [facility] Polysaccharide 00:00:00 [facility] (groups A, C, Y and Branc h W-135) conjugate vaccine (MCV4P) Meningococcal Vaccine 2018-10-18 Completed [facility] 00:00:00 [facility] TDAP 2018-10-18 Completed [facility] 00:00:00 [facility] Meningococcal B, OMV 2018-10-18 Completed [facility] 00:00:00 [facility] Meningococcal 2018-10-18 Completed [facility] Polysaccharide 00:00:00 [facility] (groups A, C, Y and Branc h W-135) conjugate vaccine (MCV4P) Meningococcal Vaccine 2018-10-18 Completed [facility] 00:00:00 [facility] TDAP 2018-10-18 Completed [facility] 00:00:00 [facility] Meningococcal B, OMV 2018-10-18 Completed [facility] 00:00:00 [facility] Meningococcal 2018-10-18 Completed [facility] Polysaccharide 00:00:00 [facility] (groups A, C, Y and Branc h W-135) conjugate vaccine (MCV4P) Meningococcal Vaccine 2018-10-18 Completed [facility] 00:00:00 [facility] TDAP 2018-10-18 Completed [facility] 00:00:00 [facility] Meningococcal B, OMV 2018-10-18 Completed [facility] 00:00:00 [facility] Meningococcal 2018-10-18 Completed [facility] Polysaccharide 00:00:00 [facility] (groups A, C, Y and Branc h W-135) conjugate vaccine (MCV4P) Meningococcal Vaccine 2018-10-18 Completed [facility] 00:00:00 [facility] TDAP 2018-10-18 Completed [facility] 00:00:00 [facility] Meningococcal B, OMV 2018-10-18 Completed [facility] 00:00:00 [facility] Meningococcal 2018-10-18 Completed [facility] Polysaccharide 00:00:00 [facility] (groups A, C, Y and Branc h W-135) conjugate vaccine (MCV4P) Meningococcal Vaccine 2018-10-18 Completed [facility] 00:00:00 [facility] TDAP 2018-10-18 Completed [facility] 00:00:00 [facility] Meningococcal B, OMV 2018-10-18 Completed [facility] 00:00:00 [facility] Meningococcal 2018-10-18 Completed [facility] Polysaccharide 00:00:00 [facility] (groups A, C, Y and Branc h W-135) conjugate vaccine (MCV4P) Meningococcal Vaccine 2018-10-18 Completed [facility] 00:00:00 [facility] TDAP 2018-10-18 Completed [facility] 00:00:00 [facility] Meningococcal B, OMV 2018-10-18 Completed [facility] 00:00:00 [facility] Meningococcal 2018-10-18 Completed [facility] Polysaccharide 00:00:00 [facility] (groups A, C, Y and Branc h W-135) conjugate vaccine (MCV4P) Meningococcal Vaccine 2018-10-18 Completed [facility] 00:00:00 [facility] TDAP 2018-10-18 Completed [facility] 00:00:00 [facility] Meningococcal B, OMV 2018-10-18 Completed [facility] 00:00:00 [facility] Meningococcal 2018-10-18 Completed [facility] Polysaccharide 00:00:00 [facility] (groups A, C, Y and Branc h W-135) conjugate vaccine (MCV4P) Meningococcal Vaccine 2018-10-18 Completed [facility] 00:00:00 [facility] TDAP 2018-10-18 Completed [facility] 00:00:00 [facility] Meningococcal B, OMV 2018-10-18 Completed [facility] 00:00:00 [facility] Meningococcal 2018-10-18 Completed [facility] Polysaccharide 00:00:00 [facility] (groups A, C, Y and Branc h W-135) conjugate vaccine (MCV4P) Meningococcal Vaccine 2018-10-18 Completed [facility] 00:00:00 [facility] TDAP 2018-10-18 Completed [facility] 00:00:00 [facility] Meningococcal B, OMV 2018-10-18 Completed [facility] 00:00:00 [facility] Meningococcal 2018-10-18 Completed [facility] Polysaccharide 00:00:00 [facility] (groups A, C, Y and Branc h W-135) conjugate vaccine (MCV4P) Meningococcal Vaccine 2018-10-18 Completed [facility] 00:00:00 [facility] TDAP 2018-10-18 Completed [facility] 00:00:00 [facility] Meningococcal B, OMV 2018-10-18 Completed [facility] 00:00:00 [facility] Meningococcal 2018-10-18 Completed [facility] Polysaccharide 00:00:00 [facility] (groups A, C, Y and Branc h W-135) conjugate vaccine (MCV4P) Meningococcal Vaccine 2018-10-18 Completed [facility] 00:00:00 [facility] TDAP 2018-10-18 Completed [facility] 00:00:00 [facility] Meningococcal B, OMV 2018-10-18 Completed [facility] 00:00:00 [facility] Meningococcal 2018-10-18 Completed [facility] Polysaccharide 00:00:00 [facility] (groups A, C, Y and Branc h W-135) conjugate vaccine (MCV4P) Meningococcal Vaccine 2018-10-18 Completed [facility] 00:00:00 [facility] TDAP 2018-10-18 Completed [facility] 00:00:00 [facility] Meningococcal B, OMV 2018-10-18 Completed [facility] 00:00:00 [facility] Meningococcal 2018-10-18 Completed [facility] Polysaccharide 00:00:00 [facility] (groups A, C, Y and Branc h W-135) conjugate vaccine (MCV4P) Meningococcal Vaccine 2018-10-18 Completed [facility] 00:00:00 [facility] TDAP 2018-10-18 Completed [facility] 00:00:00 [facility] Meningococcal B, OMV 2018-10-18 Completed [facility] 00:00:00 [facility] Meningococcal 2018-10-18 Completed [facility] Polysaccharide 00:00:00 [facility] (groups A, C, Y and Branc h W-135) conjugate vaccine (MCV4P) Meningococcal Vaccine 2018-10-18 Completed [facility] 00:00:00 [facility] TDAP 2018-10-18 Completed [facility] 00:00:00 [facility] Meningococcal B, OMV 2018-10-18 Completed [facility] 00:00:00 [facility] Meningococcal 2018-10-18 Completed [facility] Polysaccharide 00:00:00 [facility] (groups A, C, Y and Branc h W-135) conjugate vaccine (MCV4P) Meningococcal Vaccine 2018-10-18 Completed [facility] 00:00:00 [facility] TDAP 2018-10-18 Completed [facility] 00:00:00 [facility] Meningococcal B, OMV 2018-10-18 Completed [facility] 00:00:00 [facility] Meningococcal 2018-10-18 Completed [facility] Polysaccharide 00:00:00 [facility] (groups A, C, Y and Branc h W-135) conjugate vaccine (MCV4P) Meningococcal Vaccine 2018-10-18 Completed [facility] 00:00:00 [facility] TDAP 2018-10-18 Completed [facility] 00:00:00 [facility] Meningococcal B, OMV 2018-10-18 Completed [facility] 00:00:00 [facility] Meningococcal 2018-10-18 Completed [facility] Polysaccharide 00:00:00 [facility] (groups A, C, Y and Branc h W-135) conjugate vaccine (MCV4P) Meningococcal Vaccine 2018-10-18 Completed [facility] 00:00:00 [facility] TDAP 2018-10-18 Completed [facility] 00:00:00 [facility] Meningococcal B, OMV 2018-10-18 Completed [facility] 00:00:00 [facility] Meningococcal 2018-10-18 Completed [facility] Polysaccharide 00:00:00 [facility] (groups A, C, Y and Branc h W-135) conjugate vaccine (MCV4P) DTAP 2006-10-25 Completed [facility] 00:00:00 [facility] Hepatitis A Adult 2006-10-25 Completed [facility] 00:00:00 [facility] Polio (IPV/OPV) 2006-10-25 Completed [facility] 00:00:00 [facility] DTAP 2006-10-25 Completed [facility] 00:00:00 [facility] Hepatitis A Adult 2006-10-25 Completed [facility] 00:00:00 [facility] Polio (IPV/OPV) 2006-10-25 Completed [facility] 00:00:00 [facility] DTAP 2006-10-25 Completed [facility] 00:00:00 [facility] Hepatitis A Adult 2006-10-25 Completed [facility] 00:00:00 [facility] Polio (IPV/OPV) 2006-10-25 Completed [facility] 00:00:00 [facility] DTAP 2006-10-25 Completed [facility] 00:00:00 [facility] Hepatitis A Adult 2006-10-25 Completed [facility] 00:00:00 [facility] Polio (IPV/OPV) 2006-10-25 Completed [facility] 00:00:00 [facility] DTAP 2006-10-25 Completed [facility] 00:00:00 [facility] Hepatitis A Adult 2006-10-25 Completed [facility] 00:00:00 [facility] Polio (IPV/OPV) 2006-10-25 Completed [facility] 00:00:00 [facility] DTAP 2006-10-25 Completed [facility] 00:00:00 [facility] Hepatitis A Adult 2006-10-25 Completed [facility] 00:00:00 [facility] Polio (IPV/OPV) 2006-10-25 Completed [facility] 00:00:00 [facility] DTAP 2006-10-25 Completed [facility] 00:00:00 [facility] Hepatitis A Adult 2006-10-25 Completed [facility] 00:00:00 [facility] Polio (IPV/OPV) 2006-10-25 Completed [facility] 00:00:00 [facility] DTAP 2006-10-25 Completed [facility] 00:00:00 [facility] Hepatitis A Adult 2006-10-25 Completed [facility] 00:00:00 [facility] Polio (IPV/OPV) 2006-10-25 Completed [facility] 00:00:00 [facility] DTAP 2006-10-25 Completed [facility] 00:00:00 [facility] Hepatitis A Adult 2006-10-25 Completed [facility] 00:00:00 [facility] Polio (IPV/OPV) 2006-10-25 Completed [facility] 00:00:00 [facility] DTAP 2006-10-25 Completed [facility] 00:00:00 [facility] Hepatitis A Adult 2006-10-25 Completed [facility] 00:00:00 [facility] Polio (IPV/OPV) 2006-10-25 Completed [facility] 00:00:00 [facility] DTAP 2006-10-25 Completed [facility] 00:00:00 [facility] Hepatitis A Adult 2006-10-25 Completed [facility] 00:00:00 [facility] Polio (IPV/OPV) 2006-10-25 Completed [facility] 00:00:00 [facility] DTAP 2006-10-25 Completed [facility] 00:00:00 [facility] Hepatitis A Adult 2006-10-25 Completed [facility] 00:00:00 [facility] Polio (IPV/OPV) 2006-10-25 Completed [facility] 00:00:00 [facility] DTAP 2006-10-25 Completed [facility] 00:00:00 [facility] Hepatitis A Adult 2006-10-25 Completed [facility] 00:00:00 [facility] Polio (IPV/OPV) 2006-10-25 Completed [facility] 00:00:00 [facility] DTAP 2006-10-25 Completed [facility] 00:00:00 [facility] Hepatitis A Adult 2006-10-25 Completed [facility] 00:00:00 [facility] Polio (IPV/OPV) 2006-10-25 Completed [facility] 00:00:00 [facility] DTAP 2006-10-25 Completed [facility] 00:00:00 [facility] Hepatitis A Adult 2006-10-25 Completed [facility] 00:00:00 [facility] Polio (IPV/OPV) 2006-10-25 Completed [facility] 00:00:00 [facility] DTAP 2006-10-25 Completed [facility] 00:00:00 [facility] Hepatitis A Adult 2006-10-25 Completed [facility] 00:00:00 [facility] Polio (IPV/OPV) 2006-10-25 Completed [facility] 00:00:00 [facility] DTAP 2006-10-25 Completed [facility] 00:00:00 [facility] Hepatitis A Adult 2006-10-25 Completed [facility] 00:00:00 [facility] Polio (IPV/OPV) 2006-10-25 Completed [facility] 00:00:00 [facility] DTAP 2006-10-25 Completed [facility] 00:00:00 [facility] Hepatitis A Adult 2006-10-25 Completed [facility] 00:00:00 [facility] Polio (IPV/OPV) 2006-10-25 Completed [facility] 00:00:00 [facility] DTAP 2006-10-25 Completed [facility] 00:00:00 [facility] Hepatitis A Adult 2006-10-25 Completed [facility] 00:00:00 [facility] Polio (IPV/OPV) 2006-10-25 Completed [facility] 00:00:00 [facility] DTAP 2006-10-25 Completed [facility] 00:00:00 [facility] Hepatitis A Adult 2006-10-25 Completed [facility] 00:00:00 [facility] Polio (IPV/OPV) 2006-10-25 Completed [facility] 00:00:00 [facility] DTAP 2006-10-25 Completed [facility] 00:00:00 [facility] Hepatitis A Adult 2006-10-25 Completed [facility] 00:00:00 [facility] Polio (IPV/OPV) 2006-10-25 Completed [facility] 00:00:00 [facility] DTAP 2006-10-25 Completed [facility] 00:00:00 [facility] Hepatitis A Adult 2006-10-25 Completed [facility] 00:00:00 [facility] Polio (IPV/OPV) 2006-10-25 Completed [facility] 00:00:00 [facility] DTAP 2006-10-25 Completed [facility] 00:00:00 [facility] Hepatitis A Adult 2006-10-25 Completed [facility] 00:00:00 [facility] Polio (IPV/OPV) 2006-10-25 Completed [facility] 00:00:00 [facility] DTAP 2006-10-25 Completed [facility] 00:00:00 [facility] Hepatitis A Adult 2006-10-25 Completed [facility] 00:00:00 [facility] Polio (IPV/OPV) 2006-10-25 Completed [facility] 00:00:00 [facility] DTAP 2006-10-25 Completed [facility] 00:00:00 [facility] Hepatitis A Adult 2006-10-25 Completed [facility] 00:00:00 [facility] Polio (IPV/OPV) 2006-10-25 Completed [facility] 00:00:00 [facility] DTAP 2006-10-25 Completed [facility] 00:00:00 [facility] Hepatitis A Adult 2006-10-25 Completed [facility] 00:00:00 [facility] Polio (IPV/OPV) 2006-10-25 Completed [facility] 00:00:00 [facility] DTAP 2006-10-25 Completed [facility] 00:00:00 [facility] Hepatitis A Adult 2006-10-25 Completed [facility] 00:00:00 [facility] Polio (IPV/OPV) 2006-10-25 Completed [facility] 00:00:00 [facility] DTAP 2006-10-25 Completed [facility] 00:00:00 [facility] Hepatitis A Adult 2006-10-25 Completed [facility] 00:00:00 [facility] Polio (IPV/OPV) 2006-10-25 Completed [facility] 00:00:00 [facility] DTAP 2006-10-25 Completed [facility] 00:00:00 [facility] Hepatitis A Adult 2006-10-25 Completed [facility] 00:00:00 [facility] Polio (IPV/OPV) 2006-10-25 Completed [facility] 00:00:00 [facility] DTAP 2006-10-25 Completed [facility] 00:00:00 [facility] Hepatitis A Adult 2006-10-25 Completed [facility] 00:00:00 [facility] Polio (IPV/OPV) 2006-10-25 Completed [facility] 00:00:00 [facility] DTAP 2006-10-25 Completed [facility] 00:00:00 [facility] Hepatitis A Adult 2006-10-25 Completed [facility] 00:00:00 [facility] Polio (IPV/OPV) 2006-10-25 Completed [facility] 00:00:00 [facility] DTAP 2006-10-25 Completed [facility] 00:00:00 [facility] Hepatitis A Adult 2006-10-25 Completed [facility] 00:00:00 [facility] Polio (IPV/OPV) 2006-10-25 Completed [facility] 00:00:00 [facility] DTAP 2006-10-25 Completed [facility] 00:00:00 [facility] Hepatitis A Adult 2006-10-25 Completed [facility] 00:00:00 [facility] Polio (IPV/OPV) 2006-10-25 Completed [facility] 00:00:00 [facility] DTAP 2006-10-25 Completed [facility] 00:00:00 [facility] Hepatitis A Adult 2006-10-25 Completed [facility] 00:00:00 [facility] Polio (IPV/OPV) 2006-10-25 Completed [facility] 00:00:00 [facility] DTAP 2006-10-25 Completed [facility] 00:00:00 [facility] Hepatitis A Adult 2006-10-25 Completed [facility] 00:00:00 [facility] Polio (IPV/OPV) 2006-10-25 Completed [facility] 00:00:00 [facility] DTAP 2006-10-25 Completed [facility] 00:00:00 [facility] Hepatitis A Adult 2006-10-25 Completed [facility] 00:00:00 [facility] Polio (IPV/OPV) 2006-10-25 Completed [facility] 00:00:00 [facility] DTAP 2006-10-25 Completed [facility] 00:00:00 [facility] Hepatitis A Adult 2006-10-25 Completed [facility] 00:00:00 [facility] Polio (IPV/OPV) 2006-10-25 Completed [facility] 00:00:00 [facility] DTAP 2006-10-25 Completed [facility] 00:00:00 [facility] Hepatitis A Adult 2006-10-25 Completed [facility] 00:00:00 [facility] Polio (IPV/OPV) 2006-10-25 Completed [facility] 00:00:00 [facility] DTaP, Unspecified 2006-10-25 Completed [facility] Formulation 00:00:00 [facility] HEPA,NOS 2006-10-25 Completed [facility] 00:00:00 [facility] IPV 2006-10-25 Completed [facility] 00:00:00 [facility] DTAP 2006-10-25 Completed [facility] 00:00:00 [facility] Hepatitis A Adult 2006-10-25 Completed [facility] 00:00:00 [facility] Polio (IPV/OPV) 2006-10-25 Completed [facility] 00:00:00 [facility] DTaP, Unspecified 2006-10-25 Completed [facility] Formulation 00:00:00 [facility] HEPA,NOS 2006-10-25 Completed [facility] 00:00:00 [facility] IPV 2006-10-25 Completed [facility] 00:00:00 [facility] DTAP 2006-10-25 Completed [facility] 00:00:00 [facility] Hepatitis A Adult 2006-10-25 Completed [facility] 00:00:00 [facility] Polio (IPV/OPV) 2006-10-25 Completed [facility] 00:00:00 [facility] DTaP, Unspecified 2006-10-25 Completed [facility] Formulation 00:00:00 [facility] HEPA,NOS 2006-10-25 Completed [facility] 00:00:00 [facility] IPV 2006-10-25 Completed [facility] 00:00:00 [facility] DTAP 2006-10-25 Completed [facility] 00:00:00 [facility] Hepatitis A Adult 2006-10-25 Completed [facility] 00:00:00 [facility] Polio (IPV/OPV) 2006-10-25 Completed [facility] 00:00:00 [facility] DTaP, Unspecified 2006-10-25 Completed [facility] Formulation 00:00:00 [facility] HEPA,NOS 2006-10-25 Completed [facility] 00:00:00 [facility] IPV 2006-10-25 Completed [facility] 00:00:00 [facility] DTAP 2006-10-25 Completed [facility] 00:00:00 [facility] Hepatitis A Adult 2006-10-25 Completed [facility] 00:00:00 [facility] Polio (IPV/OPV) 2006-10-25 Completed [facility] 00:00:00 [facility] DTaP, Unspecified 2006-10-25 Completed [facility] Formulation 00:00:00 [facility] HEPA,NOS 2006-10-25 Completed [facility] 00:00:00 [facility] IPV 2006-10-25 Completed [facility] 00:00:00 [facility] DTAP 2006-10-25 Completed [facility] 00:00:00 [facility] Hepatitis A Adult 2006-10-25 Completed [facility] 00:00:00 [facility] Polio (IPV/OPV) 2006-10-25 Completed [facility] 00:00:00 [facility] DTaP, Unspecified 2006-10-25 Completed [facility] Formulation 00:00:00 [facility] HEPA,NOS 2006-10-25 Completed [facility] 00:00:00 [facility] IPV 2006-10-25 Completed [facility] 00:00:00 [facility] DTAP 2006-10-25 Completed [facility] 00:00:00 [facility] Hepatitis A Adult 2006-10-25 Completed [facility] 00:00:00 [facility] Polio (IPV/OPV) 2006-10-25 Completed [facility] 00:00:00 [facility] DTaP, Unspecified 2006-10-25 Completed [facility] Formulation 00:00:00 [facility] HEPA,NOS 2006-10-25 Completed [facility] 00:00:00 [facility] IPV 2006-10-25 Completed [facility] 00:00:00 [facility] DTAP 2006-10-25 Completed [facility] 00:00:00 [facility] Hepatitis A Adult 2006-10-25 Completed [facility] 00:00:00 [facility] Polio (IPV/OPV) 2006-10-25 Completed [facility] 00:00:00 [facility] DTaP, Unspecified 2006-10-25 Completed [facility] Formulation 00:00:00 [facility] HEPA,NOS 2006-10-25 Completed [facility] 00:00:00 [facility] IPV 2006-10-25 Completed [facility] 00:00:00 [facility] DTAP 2006-10-25 Completed [facility] 00:00:00 [facility] Hepatitis A Adult 2006-10-25 Completed [facility] 00:00:00 [facility] Polio (IPV/OPV) 2006-10-25 Completed [facility] 00:00:00 [facility] DTaP, Unspecified 2006-10-25 Completed [facility] Formulation 00:00:00 [facility] HEPA,NOS 2006-10-25 Completed [facility] 00:[facility]:00 [facility] IPV 2006-10-25 Completed [facility] 00:00:00 [facility] DTAP 2006-10-25 Completed [facility] 00:00:00 [facility] Hepatitis A Adult 2006-10-25 Completed [facility] 00:00:00 [facility] Polio (IPV/OPV) 2006-10-25 Completed [facility] 00:00:00 [facility] DTaP, Unspecified 2006-10-25 Completed [facility] Formulation 00:00:00 [facility] HEPA,NOS 2006-10-25 Completed [facility] 00:00:00 [facility] IPV 2006-10-25 Completed [facility] 00:00:00 [facility] DTAP 2006-10-25 Completed [facility] 00:00:00 [facility] Hepatitis A Adult 2006-10-25 Completed [facility] 00:00:00 [facility] Polio (IPV/OPV) 2006-10-25 Completed [facility] 00:00:00 [facility] DTaP, Unspecified 2006-10-25 Completed [facility] Formulation 00:00:00 [facility] HEPA,NOS 2006-10-25 Completed [facility] 00:00:00 [facility] IPV 2006-10-25 Completed [facility] 00:00:00 [facility] DTAP 2006-10-25 Completed [facility] 00:00:00 [facility] Hepatitis A Adult 2006-10-25 Completed [facility] 00:00:00 [facility] Polio (IPV/OPV) 2006-10-25 Completed [facility] 00:00:00 [facility] DTaP, Unspecified 2006-10-25 Completed [facility] Formulation 00:00:00 [facility] HEPA,NOS 2006-10-25 Completed [facility] 00:00:00 [facility] IPV 2006-10-25 Completed [facility] 00:00:00 [facility] DTAP 2006-10-25 Completed [facility] 00:00:00 [facility] Hepatitis A Adult 2006-10-25 Completed [facility] 00:00:00 [facility] Polio (IPV/OPV) 2006-10-25 Completed [facility] 00:00:00 [facility] DTaP, Unspecified 2006-10-25 Completed [facility] Formulation 00:00:00 [facility] HEPA,NOS 2006-10-25 Completed [facility] 00:00:00 [facility] IPV 2006-10-25 Completed [facility] 00:00:00 [facility] DTAP 2006-10-25 Completed [facility] 00:00:00 [facility] Hepatitis A Adult 2006-10-25 Completed [facility] 00:00:00 [facility] Polio (IPV/OPV) 2006-10-25 Completed [facility] 00:00:00 [facility] DTaP, Unspecified 2006-10-25 Completed [facility] Formulation 00:00:00 [facility] HEPA,NOS 2006-10-25 Completed [facility] 00:00:00 [facility] IPV 2006-10-25 Completed [facility] 00:00:00 [facility] DTAP 2006-10-25 Completed [facility] 00:00:00 [facility] Hepatitis A Adult 2006-10-25 Completed [facility] 00:00:00 [facility] Polio (IPV/OPV) 2006-10-25 Completed [facility] 00:00:00 [facility] DTaP, Unspecified 2006-10-25 Completed [facility] Formulation 00:00:00 [facility] HEPA,NOS 2006-10-25 Completed [facility] 00:00:00 [facility] IPV 2006-10-25 Completed [facility] 00:00:00 [facility] DTAP 2006-10-25 Completed [facility] 00:00:00 [facility] Hepatitis A Adult 2006-10-25 Completed [facility] 00:00:00 [facility] Polio (IPV/OPV) 2006-10-25 Completed [facility] 00:00:00 [facility] DTaP, Unspecified 2006-10-25 Completed [facility] Formulation 00:00:00 [facility] HEPA,NOS 2006-10-25 Completed [facility] 00:00:00 [facility] IPV 2006-10-25 Completed [facility] 00:00:00 [facility] DTAP 2006-10-25 Completed [facility] 00:00:00 [facility] Hepatitis A Adult 2006-10-25 Completed [facility] 00:00:00 [facility] Polio (IPV/OPV) 2006-10-25 Completed [facility] 00:00:00 [facility] DTaP, Unspecified 2006-10-25 Completed [facility] Formulation 00:00:00 [facility] HEPA,NOS 2006-10-25 Completed [facility] 00:00:00 [facility] IPV 2006-10-25 Completed [facility] 00:00:00 [facility] DTAP 2006-10-25 Completed [facility] 00:00:00 [facility] Hepatitis A Adult 2006-10-25 Completed [facility] 00:00:00 [facility] Polio (IPV/OPV) 2006-10-25 Completed [facility] 00:00:00 [facility] DTaP, Unspecified 2006-10-25 Completed [facility] Formulation 00:00:00 [facility] HEPA,NOS 2006-10-25 Completed [facility] 00:00:00 [facility] IPV 2006-10-25 Completed [facility] 00:00:00 [facility] DTAP 2006-10-25 Completed [facility] 00:00:00 [facility] Hepatitis A Adult 2006-10-25 Completed [facility] 00:00:00 [facility] Polio (IPV/OPV) 2006-10-25 Completed [facility] 00:00:00 [facility] DTaP, Unspecified 2006-10-25 Completed [facility] Formulation 00:00:00 [facility] HEPA,NOS 2006-10-25 Completed [facility] 00:00:00 [facility] IPV 2006-10-25 Completed [facility] 00:00:00 [facility] DTAP 2006-10-25 Completed [facility] 00:00:00 [facility] Hepatitis A Adult 2006-10-25 Completed [facility] 00:00:00 [facility] Polio (IPV/OPV) 2006-10-25 Completed [facility] 00:00:00 [facility] DTaP, Unspecified 2006-10-25 Completed [facility] Formulation 00:00:00 [facility] HEPA,NOS 2006-10-25 Completed [facility] 00:00:00 [facility] IPV 2006-10-25 Completed [facility] 00:00:00 [facility] DTAP 2006-10-25 Completed [facility] 00:00:00 [facility] Hepatitis A Adult 2006-10-25 Completed [facility] 00:00:00 [facility] Polio (IPV/OPV) 2006-10-25 Completed [facility] 00:00:00 [facility] DTaP, Unspecified 2006-10-25 Completed [facility] Formulation 00:00:00 [facility] HEPA,NOS 2006-10-25 Completed [facility] 00:00:00 [facility] IPV 2006-10-25 Completed [facility] 00:00:00 [facility] DTAP 2006-10-25 Completed [facility] 00:00:00 [facility] Hepatitis A Adult 2006-10-25 Completed [facility] 00:00:00 [facility] Polio (IPV/OPV) 2006-10-25 Completed [facility] 00:00:00 [facility] DTaP, Unspecified 2006-10-25 Completed [facility] Formulation 00:00:00 [facility] HEPA,NOS 2006-10-25 Completed [facility] 00:00:00 [facility] IPV 2006-10-25 Completed [facility] 00:00:00 [facility] DTAP 2006-10-25 Completed [facility] 00:00:00 [facility] Hepatitis A Adult 2006-10-25 Completed [facility] 00:00:00 [facility] Polio (IPV/OPV) 2006-10-25 Completed [facility] 00:00:00 [facility] DTaP, Unspecified 2006-10-25 Completed [facility] Formulation 00:00:00 [facility] HEPA,NOS 2006-10-25 Completed [facility] 00:00:00 [facility] IPV 2006-10-25 Completed [facility] 00:00:00 [facility] DTAP 2006-10-25 Completed [facility] 00:00:00 [facility] Hepatitis A Adult 2006-10-25 Completed [facility] 00:00:00 [facility] Polio (IPV/OPV) 2006-10-25 Completed [facility] 00:00:00 [facility] DTaP, Unspecified 2006-10-25 Completed [facility] Formulation 00:00:00 [facility] HEPA,NOS 2006-10-25 Completed [facility] 00:00:00 [facility] IPV 2006-10-25 Completed [facility] 00:00:00 [facility] DTAP 2006-10-25 Completed [facility] 00:00:00 [facility] Hepatitis A Adult 2006-10-25 Completed [facility] 00:00:00 [facility] Polio (IPV/OPV) 2006-10-25 Completed [facility] 00:00:00 [facility] DTaP, Unspecified 2006-10-25 Completed [facility] Formulation 00:00:00 [facility] HEPA,NOS 2006-10-25 Completed [facility] 00:00:00 [facility] IPV 2006-10-25 Completed [facility] 00:00:00 [facility] DTAP 2006-10-25 Completed [facility] 00:00:00 [facility] Hepatitis A Adult 2006-10-25 Completed [facility] 00:00:00 [facility] Polio (IPV/OPV) 2006-10-25 Completed [facility] 00:00:00 [facility] DTaP, Unspecified 2006-10-25 Completed [facility] Formulation 00:00:00 [facility] HEPA,NOS 2006-10-25 Completed [facility] 00:00:00 [facility] IPV 2006-10-25 Completed [facility] 00:00:00 [facility] DTAP 2005-09-20 Completed [facility] 00:00:00 [facility] HIB 3 Dose Schedule 2005-09-20 Completed [facility] rsity of 00:00:00 [facility] Hepatitis A Adult 2005-09-20 Completed [facility] 00:00:00 [facility] Hep B, Adol or Pedi 2005-09-20 Completed [facility]ive rs[facility] of Dosage 00:00:00 [facility] Pneumococcal 13 2005-09-20 Completed [facility] Conjugate, PCV13 00:00:00 [facility] dical (Prevnar 13) [facility] Polio (IPV/OPV) 2005-09-20 Completed [facility] 00:00:00 [facility] DTAP 2005-09-20 Completed [facility] 00:00:00 [facility] HIB 3 Dose Schedule 2005-09-20 Completed [facility] rsity of 00:00:00 [facility] Hepatitis A Adult 2005-09-20 Completed [facility] 00:00:00 [facility] Hep B, Adol or Pedi 2005-09-20 Completed [facility]ive rs[facility] of Dosage 00:00:00 [facility] Pneumococcal 13 2005-09-20 Completed [facility] Conjugate, PCV13 00:00:00 [facility] dical (Prevnar 13) [facility] Polio (IPV/OPV) 2005-09-20 Completed [facility] 00:00:00 [facility] DTAP 2005-09-20 Completed [facility] 00:00:00 [facility] HIB 3 Dose Schedule 2005-09-20 Completed [facility] rsity of 00:00:00 [facility] Hepatitis A Adult 2005-09-20 Completed [facility] 00:00:00 [facility] Hep B, Adol or Pedi 2005-09-20 Completed [facility]ive rsity of Dosage 00:00:00 [facility] Pneumococcal 13 2005-09-20 Completed [facility] Conjugate, PCV13 00:00:00 [facility] dical (Prevnar 13) Branch Polio (IPV/OPV) 2005-09-20 Completed [facility] 00:00:00 [facility] DTAP 2005-09-20 Completed [facility] 00:00:00 [facility] HIB 3 Dose Schedule 2005-09-20 Completed [facility] rsity of 00:00:00 [facility] Hepatitis A Adult 2005-09-20 Completed [facility] 00:00:00 [facility] Hep B, Adol or Pedi 2005-09-20 Completed [facility]ive rsity of Dosage 00:00:00 [facility] Pneumococcal 13 2005-09-20 Completed [facility] Conjugate, PCV13 00:00:00 [facility] (Prevnar 13) Branch Polio (IPV/OPV) 2005-09-20 Completed [facility] 00:00:00 [facility] DTAP 2005-09-20 Completed [facility] 00:00:00 [facility] HIB 3 Dose Schedule 2005-09-20 Completed [facility] rsity of 00:00:00 [facility] Hepatitis A Adult 2005-09-20 Completed [facility] 00:00:00 [facility] Hep B, Adol or Pedi 2005-09-20 Completed [facility]ive rsity of Dosage 00:00:00 [facility] Pneumococcal 13 2005-09-20 Completed [facility] Conjugate, PCV13 00:00:00 [facility] dical (Prevnar 13) Branch Polio (IPV/OPV) 2005-09-20 Completed [facility] 00:00:00 [facility] DTAP 2005-09-20 Completed [facility] 00:00:00 [facility] HIB 3 Dose Schedule 2005-09-20 Completed [facility] rsity of 00:00:00 [facility] Hepatitis A Adult 2005-09-20 Completed [facility] 00:00:00 [facility] Hep B, Adol or Pedi 2005-09-20 Completed [facility] rs[facility] of Dosage 00:00:00 [facility] Pneumococcal 13 2005-09-20 Completed [facility] Conjugate, PCV13 00:00:00 [facility] dical (Prevnar 13) Branch Polio (IPV/OPV) 2005-09-20 Completed [facility] 00:00:00 [facility] DTAP 2005-09-20 Completed [facility] 00:00:00 [facility] HIB 3 Dose Schedule 2005-09-20 Completed [facility] rsity of 00:00:00 [facility] Hepatitis A Adult 2005-09-20 Completed [facility] 00:00:00 [facility] Hep B, Adol or Pedi 2005-09-20 Completed [facility] rs[facility] of Dosage 00:00:00 [facility] Pneumococcal 13 2005-09-20 Completed [facility] Conjugate, PCV13 00:00:00 [facility] dical (Prevnar 13) Branch Polio (IPV/OPV) 2005-09-20 Completed [facility] 00:00:00 [facility] DTAP 2005-09-20 Completed [facility] 00:00:00 [facility] HIB 3 Dose Schedule 2005-09-20 Completed [facility] rsity of 00:00:00 [facility] Hepatitis A Adult 2005-09-20 Completed [facility] 00:00:00 [facility] Hep B, Adol or Pedi 2005-09-20 Completed [facility] rs[facility] of Dosage 00:00:00 [facility] Pneumococcal 13 2005-09-20 Completed [facility] Conjugate, PCV13 00:00:00 [facility] dical (Prevnar 13) Branch Polio (IPV/OPV) 2005-09-20 Completed [facility] 00:00:00 [facility] DTAP 2005-09-20 Completed [facility] 00:00:00 [facility] HIB 3 Dose Schedule 2005-09-20 Completed [facility] rsity of 00:00:00 [facility] Hepatitis A Adult 2005-09-20 Completed [facility] 00:00:00 [facility] Hep B, Adol or Pedi 2005-09-20 Completed [facility] rs[facility] of Dosage 00:00:00 [facility] Pneumococcal 13 2005-09-20 Completed [facility] Conjugate, PCV13 00:00:00 [facility] dical (Prevnar 13) Branch Polio (IPV/OPV) 2005-09-20 Completed [facility] 00:00:00 [facility] DTAP 2005-09-20 Completed [facility] 00:00:00 [facility] HIB 3 Dose Schedule 2005-09-20 Completed [facility] rsity of 00:00:00 [facility] Hepatitis A Adult 2005-09-20 Completed [facility] 00:00:00 [facility] Hep B, Adol or Pedi 2005-09-20 Completed [facility]ive rsity of Dosage 00:00:00 [facility] Pneumococcal 13 2005-09-20 Completed [facility] Conjugate, PCV13 00:00:00 [facility] dical (Prevnar 13) Branch Polio (IPV/OPV) 2005-09-20 Completed [facility] 00:00:00 [facility] DTAP 2005-09-20 Completed [facility] 00:00:00 [facility] HIB 3 Dose Schedule 2005-09-20 Completed [facility] rs[facility] of 00:00:00 [facility] Hepatitis A Adult 2005-09-20 Completed [facility] 00:00:00 [facility] Hep B, Adol or Pedi 2005-09-20 Completed [facility] rs[facility] of Dosage 00:00:00 [facility] Pneumococcal 13 2005-09-20 Completed [facility] Conjugate, PCV13 00:00:00 [facility] dical (Prevnar 13) Branch Polio (IPV/OPV) 2005-09-20 Completed [facility] 00:00:00 [facility] DTAP 2005-09-20 Completed [facility] 00:00:00 [facility] HIB 3 Dose Schedule 2005-09-20 Completed [facility] rsity of 00:00:00 [facility] Hepatitis A Adult 2005-09-20 Completed [facility] 00:00:00 [facility] Hep B, Adol or Pedi 2005-09-20 Completed [facility] rs[facility] of Dosage 00:00:00 [facility] Pneumococcal 13 2005-09-20 Completed [facility] Conjugate, PCV13 00:00:00 [facility] dical (Prevnar 13) Branch Polio (IPV/OPV) 2005-09-20 Completed [facility] 00:00:00 [facility] DTAP 2005-09-20 Completed [facility] 00:00:00 [facility] HIB 3 Dose Schedule 2005-09-20 Completed [facility] rsity of 00:00:00 [facility] Hepatitis A Adult 2005-09-20 Completed [facility] 00:00:00 [facility] Hep B, Adol or Pedi 2005-09-20 Completed [facility] rs[facility] of Dosage 00:00:00 [facility] Pneumococcal 13 2005-09-20 Completed [facility] Conjugate, PCV13 00:00:00 [facility] dical (Prevnar 13) Branch Polio (IPV/OPV) 2005-09-20 Completed [facility] 00:00:00 [facility] DTAP 2005-09-20 Completed [facility] 00:00:00 [facility] HIB 3 Dose Schedule 2005-09-20 Completed [facility] rsity of 00:00:00 [facility] Hepatitis A Adult 2005-09-20 Completed [facility] 00:00:00 [facility] Hep B, Adol or Pedi 2005-09-20 Completed [facility] rs[facility] of Dosage 00:00:00 [facility] Pneumococcal 13 2005-09-20 Completed [facility] Conjugate, PCV13 00:00:00 [facility] dical (Prevnar 13) Branch Polio (IPV/OPV) 2005-09-20 Completed [facility] 00:00:00 [facility] DTAP 2005-09-20 Completed [facility] 00:00:00 [facility] HIB 3 Dose Schedule 2005-09-20 Completed [facility] rsity of 00:00:00 [facility] Hepatitis A Adult 2005-09-20 Completed [facility] 00:00:00 [facility] Hep B, Adol or Pedi 2005-09-20 Completed [facility] rs[facility] of Dosage 00:00:00 [facility] Pneumococcal 13 2005-09-20 Completed [facility] Conjugate, PCV13 00:00:00 [facility] dical (Prevnar 13) Branch Polio (IPV/OPV) 2005-09-20 Completed [facility] 00:00:00 [facility] DTAP 2005-09-20 Completed [facility] 00:00:00 [facility] HIB 3 Dose Schedule 2005-09-20 Completed [facility] rsity of 00:00:00 [facility] Hepatitis A Adult 2005-09-20 Completed [facility] 00:00:00 [facility] Hep B, Adol or Pedi 2005-09-20 Completed [facility] rs[facility] of Dosage 00:00:00 [facility] Pneumococcal 13 2005-09-20 Completed [facility] Conjugate, PCV13 00:00:00 [facility] dical (Prevnar 13) Branch Polio (IPV/OPV) 2005-09-20 Completed [facility] 00:00:00 [facility] DTAP 2005-09-20 Completed [facility] 00:00:00 [facility] HIB 3 Dose Schedule 2005-09-20 Completed [facility] rs[facility] of 00:00:00 [facility] Hepatitis A Adult 2005-09-20 Completed [facility] 00:00:00 [facility] Hep B, Adol or Pedi 2005-09-20 Completed [facility] rs[facility] of Dosage 00:00:00 [facility] Pneumococcal 13 2005-09-20 Completed [facility] Conjugate, PCV13 00:00:00 [facility] dical (Prevnar 13) Branch Polio (IPV/OPV) 2005-09-20 Completed [facility] 00:00:00 [facility] DTAP 2005-09-20 Completed [facility] 00:00:00 [facility] HIB 3 Dose Schedule 2005-09-20 Completed [facility] rs[facility] of 00:00:00 [facility] Hepatitis A Adult 2005-09-20 Completed [facility] 00:00:00 [facility] Hep B, Adol or Pedi 2005-09-20 Completed [facility] rs[facility] of Dosage 00:00:00 [facility] Pneumococcal 13 2005-09-20 Completed [facility] Conjugate, PCV13 00:00:00 [facility] dical (Prevnar 13) Branch Polio (IPV/OPV) 2005-09-20 Completed [facility] 00:00:00 [facility] DTAP 2005-09-20 Completed [facility] 00:00:00 [facility] HIB 3 Dose Schedule 2005-09-20 Completed [facility] of 00:00:00 [facility] Hepatitis A Adult 2005-09-20 Completed [facility] 00:00:00 [facility] Hep B, Adol or Pedi 2005-09-20 Completed [facility] rs[facility] of Dosage 00:00:00 [facility] Pneumococcal 13 2005-09-20 Completed [facility] Conjugate, PCV13 00:00:00 [facility] dical (Prevnar 13) Branch Polio (IPV/OPV) 2005-09-20 Completed [facility] 00:00:00 [facility] DTAP 2005-09-20 Completed [facility] 00:00:00 [facility] HIB 3 Dose Schedule 2005-09-20 Completed [facility] of 00:00:00 [facility] Hepatitis A Adult 2005-09-20 Completed [facility] 00:00:00 [facility] Hep B, Adol or Pedi 2005-09-20 Completed [facility] rs[facility] of Dosage 00:00:00 [facility] Pneumococcal 13 2005-09-20 Completed [facility] Conjugate, PCV13 00:00:00 [facility] dical (Prevnar 13) Branch Polio (IPV/OPV) 2005-09-20 Completed [facility] 00:00:00 [facility] DTAP 2005-09-20 Completed [facility] 00:00:00 [facility] HIB 3 Dose Schedule 2005-09-20 Completed [facility] of 00:00:00 [facility] Hepatitis A Adult 2005-09-20 Completed [facility] 00:00:00 [facility] Hep B, Adol or Pedi 2005-09-20 Completed [facility] of Dosage 00:00:00 [facility] Pneumococcal 13 2005-09-20 Completed [facility] Conjugate, PCV13 00:00:00 [facility] dical (Prevnar 13) Branch Polio (IPV/OPV) 2005-09-20 Completed [facility] 00:00:00 [facility] DTAP 2005-09-20 Completed [facility] 00:00:00 [facility] HIB 3 Dose Schedule 2005-09-20 Completed [facility] of 00:00:00 [facility] Hepatitis A Adult 2005-09-20 Completed [facility] 00:00:00 [facility] Hep B, Adol or Pedi 2005-09-20 Completed [facility] of Dosage 00:00:00 [facility] Pneumococcal 13 2005-09-20 Completed [facility] Conjugate, PCV13 00:00:00 [facility] dical (Prevnar 13) Branch Polio (IPV/OPV) 2005-09-20 Completed [facility] 00:00:00 [facility] DTAP 2005-09-20 Completed [facility] 00:00:00 [facility] HIB 3 Dose Schedule 2005-09-20 Completed [facility] of 00:00:00 [facility] Hepatitis A Adult 2005-09-20 Completed [facility] 00:00:00 [facility] Hep B, Adol or Pedi 2005-09-20 Completed [facility] of Dosage 00:00:00 [facility] Pneumococcal 13 2005-09-20 Completed [facility] Conjugate, PCV13 00:00:00 [facility] dical (Prevnar 13) Branch Polio (IPV/OPV) 2005-09-20 Completed [facility] 00:00:00 [facility] DTAP 2005-09-20 Completed [facility] 00:00:00 [facility] HIB 3 Dose Schedule 2005-09-20 Completed [facility] of 00:00:00 [facility] Hepatitis A Adult 2005-09-20 Completed [facility] 00:00:00 [facility] Hep B, Adol or Pedi 2005-09-20 Completed [facility] of Dosage 00:00:00 [facility] Pneumococcal 13 2005-09-20 Completed [facility] Conjugate, PCV13 00:00:00 [facility] dical (Prevnar 13) Branch Polio (IPV/OPV) 2005-09-20 Completed [facility] 00:00:00 [facility] DTAP 2005-09-20 Completed [facility] 00:00:00 [facility] HIB 3 Dose Schedule 2005-09-20 Completed [facility] of 00:00:00 [facility] Hepatitis A Adult 2005-09-20 Completed [facility] 00:00:00 [facility] Hep B, Adol or Pedi 2005-09-20 Completed [facility] of Dosage 00:00:00 [facility] Pneumococcal 13 2005-09-20 Completed [facility] Conjugate, PCV13 00:00:00 [facility] dical (Prevnar 13) Branch Polio (IPV/OPV) 2005-09-20 Completed [facility] 00:00:00 [facility] DTAP 2005-09-20 Completed [facility] 00:00:00 [facility] HIB 3 Dose Schedule 2005-09-20 Completed [facility] 00:00:00 [facility] Hepatitis A Adult 2005-09-20 Completed [facility] 00:00:00 [facility] Hep B, Adol or Pedi 2005-09-20 Completed [facility] of Dosage 00:00:00 [facility] Pneumococcal 13 2005-09-20 Completed [facility] Conjugate, PCV13 00:00:00 [facility] dical (Prevnar 13) Branch Polio (IPV/OPV) 2005-09-20 Completed [facility] 00:00:00 [facility] DTAP 2005-09-20 Completed [facility] 00:00:00 [facility] HIB 3 Dose Schedule 2005-09-20 Completed [facility] of 00:00:00 [facility] Hepatitis A Adult 2005-09-20 Completed [facility] 00:00:00 [facility] Hep B, Adol or Pedi 2005-09-20 Completed [facility] of Dosage 00:00:00 [facility] Pneumococcal 13 2005-09-20 Completed [facility] Conjugate, PCV13 00:00:00 [facility] dical (Prevnar 13) Branch Polio (IPV/OPV) 2005-09-20 Completed [facility] 00:00:00 [facility] DTAP 2005-09-20 Completed [facility] 00:00:00 [facility] HIB 3 Dose Schedule 2005-09-20 Completed [facility] 00:00:00 [facility] Hepatitis A Adult 2005-09-20 Completed [facility] 00:00:00 [facility] Hep B, Adol or Pedi 2005-09-20 Completed [facility] of Dosage 00:00:00 [facility] Pneumococcal 13 2005-09-20 Completed [facility] Conjugate, PCV13 00:00:00 [facility] dical (Prevnar 13) Branch Polio (IPV/OPV) 2005-09-20 Completed [facility] 00:00:00 [facility] DTAP 2005-09-20 Completed [facility] 00:00:00 [facility] HIB 3 Dose Schedule 2005-09-20 Completed [facility] 00:00:00 [facility] Hepatitis A Adult 2005-09-20 Completed [facility] 00:00:00 [facility] Hep B, Adol or Pedi 2005-09-20 Completed [facility] of Dosage 00:00:00 [facility] Pneumococcal 13 2005-09-20 Completed [facility] Conjugate, PCV13 00:00:00 [facility] dical (Prevnar 13) Branch Polio (IPV/OPV) 2005-09-20 Completed [facility] 00:00:00 [facility] DTAP 2005-09-20 Completed [facility] 00:00:00 [facility] HIB 3 Dose Schedule 2005-09-20 Completed [facility] of 00:00:00 [facility] Hepatitis A Adult 2005-09-20 Completed [facility] 00:00:00 [facility] Hep B, Adol or Pedi 2005-09-20 Completed [facility] of Dosage 00:00:00 [facility] Pneumococcal 13 2005-09-20 Completed [facility] Conjugate, PCV13 00:00:00 [facility] dical (Prevnar 13) Branch Polio (IPV/OPV) 2005-09-20 Completed [facility] 00:00:00 [facility] DTAP 2005-09-20 Completed [facility] 00:00:00 [facility] HIB 3 Dose Schedule 2005-09-20 Completed [facility] 00:00:00 [facility] Hepatitis A Adult 2005-09-20 Completed Univers ity of 00:00:00 [facility] Hep B, Adol or Pedi 2005-09-20 Completed [facility] Dosage 00:00:00 [facility] Pneumococcal 13 2005-09-20 Completed [facility] Conjugate, PCV13 00:00:00 [facility] dical (Prevnar 13) Branch Polio (IPV/OPV) 2005-09-20 Completed [facility] 00:00:00 [facility] DTAP 2005-09-20 Completed [facility] 00:00:00 [facility] HIB 3 Dose Schedule 2005-09-20 Completed [facility] 00:00:00 [facility] Hepatitis A Adult 2005-09-20 Completed [facility] 00:00:00 [facility] Hep B, Adol or Pedi 2005-09-20 Completed [facility] Dosage 00:00:00 [facility] Pneumococcal 13 2005-09-20 Completed [facility] Conjugate, PCV13 00:00:00 [facility] dical (Prevnar 13) Branch Polio (IPV/OPV) 2005-09-20 Completed [facility] 00:00:00 [facility] DTAP 2005-09-20 Completed [facility] 00:00:00 [facility] HIB 3 Dose Schedule 2005-09-20 Completed [facility] of 00:00:00 [facility] Hepatitis A Adult 2005-09-20 Completed [facility] 00:00:00 [facility] Hep B, Adol or Pedi 2005-09-20 Completed [facility] Dosage 00:00:00 [facility] Pneumococcal 13 2005-09-20 Completed [facility] Conjugate, PCV13 00:00:00 [facility] dical (Prevnar 13) Branch Polio (IPV/OPV) 2005-09-20 Completed [facility] 00:00:00 [facility] DTAP 2005-09-20 Completed [facility] 00:00:00 [facility] HIB 3 Dose Schedule 2005-09-20 Completed [facility] 00:00:00 [facility] Hepatitis A Adult 2005-09-20 Completed [facility] 00:00:00 [facility] Hep B, Adol or Pedi 2005-09-20 Completed [facility] Dosage 00:00:00 [facility] Pneumococcal 13 2005-09-20 Completed [facility] Conjugate, PCV13 00:00:00 [facility] dical (Prevnar 13) Branch Polio (IPV/OPV) 2005-09-20 Completed [facility] 00:00:00 [facility] DTAP 2005-09-20 Completed [facility] 00:00:00 [facility] HIB 3 Dose Schedule 2005-09-20 Completed [facility] 00:00:00 [facility] Hepatitis A Adult 2005-09-20 Completed [facility] 00:00:00 [facility] Hep B, Adol or Pedi 2005-09-20 Completed [facility] Dosage 00:00:00 [facility] Pneumococcal 13 2005-09-20 Completed [facility] Conjugate, PCV13 00:00:00 [facility] dical (Prevnar 13) Branch Polio (IPV/OPV) 2005-09-20 Completed [facility] 00:00:00 [facility] DTAP 2005-09-20 Completed [facility] 00:00:00 [facility] HIB 3 Dose Schedule 2005-09-20 Completed [facility] of 00:00:00 [facility] Hepatitis A Adult 2005-09-20 Completed [facility] 00:00:00 [facility] Hep B, Adol or Pedi 2005-09-20 Completed [facility] Dosage 00:00:00 [facility] Pneumococcal 13 2005-09-20 Completed [facility] Conjugate, PCV13 00:00:00 [facility] dical (Prevnar 13) Branch Polio (IPV/OPV) 2005-09-20 Completed [facility] 00:00:00 [facility] DTAP 2005-09-20 Completed [facility] 00:00:00 [facility] HIB 3 Dose Schedule 2005-09-20 Completed [facility] of 00:00:00 [facility] Hepatitis A Adult 2005-09-20 Completed [facility] 00:00:00 [facility] Hep B, Adol or Pedi 2005-09-20 Completed [facility] Dosage 00:00:00 [facility] Pneumococcal 13 2005-09-20 Completed [facility] of Conjugate, PCV13 00:00:00 [facility] dical (Prevnar 13) Branch Polio (IPV/OPV) 2005-09-20 Completed [facility] 00:00:00 [facility] DTAP 2005-09-20 Completed [facility] 00:00:00 [facility] HIB 3 Dose Schedule 2005-09-20 Completed [facility] of 00:00:00 [facility] Hepatitis A Adult 2005-09-20 Completed [facility] 00:00:00 [facility] Hep B, Adol or Pedi 2005-09-20 Completed [facility] Dosage 00:00:00 [facility] Pneumococcal 13 2005-09-20 Completed [facility] Conjugate, PCV13 00:00:00 [facility] dical (Prevnar 13) Branch Polio (IPV/OPV) 2005-09-20 Completed [facility] 00:00:00 [facility] DTaP, Unspecified 2005-09-20 Completed [facility] ity of Formulation 00:00:00 [facility] HEPATITIS A 2005-09-20 Completed [facility] of 00:00:00 [facility] HIB 4 Dose Schedule 2005-09-20 Completed [facility] of 00:00:00 [facility] Pneumococcal 7 2005-09-20 Completed [facility] Conjugate, PCV7 00:00:00 [facility] (Prevnar7) Branch IPV 2005-09-20 Completed [facility] of 00:00:00 [facility] DTAP 2005-09-20 Completed [facility] of 00:00:00 [facility] HIB 3 Dose Schedule 2005-09-20 Completed [facility] of 00:00:00 [facility] Hepatitis A Adult 2005-09-20 Completed [facility] of 00:00:00 [facility] Hep B, Adol or Pedi 2005-09-20 Completed [facility] of Dosage 00:00:00 [facility] Pneumococcal 13 2005-09-20 Completed [facility] of Conjugate, PCV13 00:00:00 [facility] dical (Prevnar 13) Branch Polio (IPV/OPV) 2005-09-20 Completed [facility] 00:00:00 [facility] DTaP, Unspecified 2005-09-20 Completed [facility] ity of Formulation 00:00:00 [facility] HEPATITIS A 2005-09-20 Completed [facility] of 00:00:00 [facility] HIB 4 Dose Schedule 2005-09-20 Completed [facility] of 00:00:00 [facility] Pneumococcal 7 2005-09-20 Completed [facility] of Conjugate, PCV7 00:00:00 [facility] (Prevnar7) Branch IPV 2005-09-20 Completed [facility] of 00:00:00 [facility] DTAP 2005-09-20 Completed [facility] of 00:00:00 [facility] HIB 3 Dose Schedule 2005-09-20 Completed [facility] of 00:00:00 [facility] Hepatitis A Adult 2005-09-20 Completed [facility] 00:00:00 [facility] Hep B, Adol or Pedi 2005-09-20 Completed [facility] of Dosage 00:00:00 [facility] Pneumococcal 13 2005-09-20 Completed [facility] of Conjugate, PCV13 00:00:00 [facility] dical (Prevnar 13) Branch Polio (IPV/OPV) 2005-09-20 Completed [facility] 00:00:00 [facility] DTaP, Unspecified 2005-09-20 Completed [facility] ity of Formulation 00:00:00 [facility] HEPATITIS A 2005-09-20 Completed [facility] of 00:00:00 [facility] HIB 4 Dose Schedule 2005-09-20 Completed [facility] of 00:00:00 [facility] Pneumococcal 7 2005-09-20 Completed [facility] of Conjugate, PCV7 00:00:00 [facility] ical (Prevnar7) Branch IPV 2005-09-20 Completed [facility] of 00:00:00 [facility] DTAP 2005-09-20 Completed [facility] of 00:00:00 [facility] HIB 3 Dose Schedule 2005-09-20 Completed [facility]ity of 00:00:00 [facility] Hepatitis A Adult 2005-09-20 Completed [facility] 00:00:00 [facility] Hep B, Adol or Pedi 2005-09-20 Completed [facility] of Dosage 00:00:00 [facility] Pneumococcal 13 2005-09-20 Completed [facility] of Conjugate, PCV13 00:00:00 [facility] dical (Prevnar 13) Branch Polio (IPV/OPV) 2005-09-20 Completed [facility] 00:00:00 [facility] DTaP, Unspecified 2005-09-20 Completed [facility] ity of Formulation 00:00:00 [facility] HEPATITIS A 2005-09-20 Completed [facility] of 00:00:00 [facility] HIB 4 Dose Schedule 2005-09-20 Completed [facility] of 00:00:00 [facility] Pneumococcal 7 2005-09-20 Completed [facility] of Conjugate, PCV7 00:00:00 [facility] (Prevnar7) Branch IPV 2005-09-20 Completed [facility] of 00:00:00 [facility] DTAP 2005-09-20 Completed [facility] of 00:00:00 [facility] HIB 3 Dose Schedule 2005-09-20 Completed [facility]ity of 00:00:00 [facility] Hepatitis A Adult 2005-09-20 Completed [facility] of 00:00:00 [facility] Hep B, Adol or Pedi 2005-09-20 Completed [facility] of Dosage 00:00:00 [facility] Pneumococcal 13 2005-09-20 Completed [facility] of Conjugate, PCV13 00:00:00 [facility] dical (Prevnar 13) Branch Polio (IPV/OPV) 2005-09-20 Completed [facility] 00:00:00 [facility] DTaP, Unspecified 2005-09-20 Completed [facility] ity of Formulation 00:00:00 [facility] HEPATITIS A 2005-09-20 Completed [facility] of 00:00:00 [facility] HIB 4 Dose Schedule 2005-09-20 Completed [facility] rsity of 00:00:00 [facility] Pneumococcal 7 2005-09-20 Completed [facility] of Conjugate, PCV7 00:00:00 [facility] ical (Prevnar7) Branch IPV 2005-09-20 Completed [facility] of 00:00:00 [facility] DTAP 2005-09-20 Completed [facility] of 00:00:00 [facility] HIB 3 Dose Schedule 2005-09-20 Completed [facility]ity of 00:00:00 [facility] Hepatitis A Adult 2005-09-20 Completed [facility] 00:00:00 [facility] Hep B, Adol or Pedi 2005-09-20 Completed [facility] of Dosage 00:00:00 [facility] Pneumococcal 13 2005-09-20 Completed [facility] of Conjugate, PCV13 00:00:00 [facility] dical (Prevnar 13) Branch Polio (IPV/OPV) 2005-09-20 Completed [facility] 00:00:00 [facility] DTaP, Unspecified 2005-09-20 Completed [facility] ity of Formulation 00:00:00 [facility] HEPATITIS A 2005-09-20 Completed [facility] of 00:00:00 [facility] HIB 4 Dose Schedule 2005-09-20 Completed [facility] of 00:00:00 [facility] Pneumococcal 7 2005-09-20 Completed [facility] of Conjugate, PCV7 00:00:00 [facility] (Prevnar7) Branch IPV 2005-09-20 Completed [facility] of 00:00:00 [facility] DTAP 2005-09-20 Completed [facility] of 00:00:00 [facility] HIB 3 Dose Schedule 2005-09-20 Completed [facility]ity of 00:00:00 [facility] Hepatitis A Adult 2005-09-20 Completed [facility] 00:00:00 [facility] Hep B, Adol or Pedi 2005-09-20 Completed [facility] of Dosage 00:00:00 [facility] Pneumococcal 13 2005-09-20 Completed [facility] of Conjugate, PCV13 00:00:00 [facility] dical (Prevnar 13) Branch Polio (IPV/OPV) 2005-09-20 Completed [facility] 00:00:00 [facility] DTaP, Unspecified 2005-09-20 Completed [facility] ity of Formulation 00:00:00 [facility] HEPATITIS A 2005-09-20 Completed [facility] of 00:00:00 [facility] HIB 4 Dose Schedule 2005-09-20 Completed [facility] rsity of 00:00:00 [facility] Pneumococcal 7 2005-09-20 Completed [facility] of Conjugate, PCV7 00:00:00 [facility] ical (Prevnar7) Branch IPV 2005-09-20 Completed [facility] of 00:00:00 [facility] DTAP 2005-09-20 Completed [facility] of 00:00:00 [facility] HIB 3 Dose Schedule 2005-09-20 Completed [facility] rsity of 00:00:00 [facility] Hepatitis A Adult 2005-09-20 Completed [facility] of 00:00:00 [facility] Hep B, Adol or Pedi 2005-09-20 Completed [facility] of Dosage 00:00:00 [facility] Pneumococcal 13 2005-09-20 Completed [facility] of Conjugate, PCV13 00:00:00 [facility] dical (Prevnar 13) Branch Polio (IPV/OPV) 2005-09-20 Completed [facility] 00:00:00 [facility] DTaP, Unspecified 2005-09-20 Completed [facility] ity of Formulation 00:00:00 [facility] HEPATITIS A 2005-09-20 Completed [facility] of 00:00:00 [facility] HIB 4 Dose Schedule 2005-09-20 Completed [facility]ive rsity of 00:00:00 [facility] Pneumococcal 7 2005-09-20 Completed [facility] of Conjugate, PCV7 00:00:00 [facility] (Prevnar7) Branch IPV 2005-09-20 Completed [facility] of 00:00:00 [facility] DTAP 2005-09-20 Completed [facility] of 00:00:00 [facility] HIB 3 Dose Schedule 2005-09-20 Completed [facility] rsity of 00:00:00 [facility] Hepatitis A Adult 2005-09-20 Completed [facility] of 00:00:00 [facility] Hep B, Adol or Pedi 2005-09-20 Completed [facility] of Dosage 00:00:00 [facility] Pneumococcal 13 2005-09-20 Completed [facility] of Conjugate, PCV13 00:00:00 [facility] dical (Prevnar 13) Branch Polio (IPV/OPV) 2005-09-20 Completed [facility] 00:00:00 [facility] DTaP, Unspecified 2005-09-20 Completed [facility] ity of Formulation 00:00:00 [facility] HEPATITIS A 2005-09-20 Completed [facility] of 00:00:00 [facility] HIB 4 Dose Schedule 2005-09-20 Completed Unive rsity of 00:00:00 [facility] Pneumococcal 7 2005-09-20 Completed [facility] of Conjugate, PCV7 00:00:00 [facility] ical (Prevnar7) Branch IPV 2005-09-20 Completed [facility] of 00:00:00 [facility] DTAP 2005-09-20 Completed [facility] of 00:00:00 [facility] HIB 3 Dose Schedule 2005-09-20 Completed [facility]ive rsity of 00:00:00 [facility] Hepatitis A Adult 2005-09-20 Completed [facility] of 00:00:00 [facility] Hep B, Adol or Pedi 2005-09-20 Completed [facility] of Dosage 00:00:00 [facility] Pneumococcal 13 2005-09-20 Completed [facility] of Conjugate, PCV13 00:00:00 [facility] dical (Prevnar 13) Branch Polio (IPV/OPV) 2005-09-20 Completed [facility] 00:00:00 [facility] DTaP, Unspecified 2005-09-20 Completed [facility] ity of Formulation 00:00:00 [facility] HEPATITIS A 2005-09-20 Completed [facility] of 00:00:00 [facility] HIB 4 Dose Schedule 2005-09-20 Completed [facility]ive rsity of 00:00:00 [facility] Pneumococcal 7 2005-09-20 Completed [facility] of Conjugate, PCV7 00:00:00 [facility] (Prevnar7) Branch IPV 2005-09-20 Completed [facility] of 00:00:00 [facility] DTAP 2005-09-20 Completed [facility] of 00:00:00 [facility] HIB 3 Dose Schedule 2005-09-20 Completed [facility]ive rsity of 00:00:00 [facility] Hepatitis A Adult 2005-09-20 Completed [facility] it[facility] of 00:00:00 [facility] Hep B, Adol or Pedi 2005-09-20 Completed [facility] rsity of Dosage 00:00:00 [facility] Pneumococcal 13 2005-09-20 Completed [facility] of Conjugate, PCV13 00:00:00 [facility] dical (Prevnar 13) Branch Polio (IPV/OPV) 2005-09-20 Completed [facility] 00:00:00 [facility] DTaP, Unspecified 2005-09-20 Completed [facility] ity of Formulation 00:00:00 [facility] HEPATITIS A 2005-09-20 Completed [facility] of 00:00:00 [facility] HIB 4 Dose Schedule 2005-09-20 Completed [facility]ive rsity of 00:00:00 [facility] Pneumococcal 7 2005-09-20 Completed [facility] of Conjugate, PCV7 00:00:00 [facility] ical (Prevnar7) Branch IPV 2005-09-20 Completed [facility] of 00:00:00 [facility] DTAP 2005-09-20 Completed [facility] of 00:00:00 [facility] HIB 3 Dose Schedule 2005-09-20 Completed [facility] rsity of 00:00:00 [facility] Hepatitis A Adult 2005-09-20 Completed [facility] of 00:00:00 [facility] Hep B, Adol or Pedi 2005-09-20 Completed [facility]ive rsity of Dosage 00:00:00 [facility] Pneumococcal 13 2005-09-20 Completed [facility] of Conjugate, PCV13 00:00:00 [facility] dical (Prevnar 13) Branch Polio (IPV/OPV) 2005-09-20 Completed [facility] 00:00:00 [facility] DTaP, Unspecified 2005-09-20 Completed [facility] ity of Formulation 00:00:00 [facility] HEPATITIS A 2005-09-20 Completed [facility] of 00:00:00 [facility] HIB 4 Dose Schedule 2005-09-20 Completed [facility]ive rsity of 00:00:00 [facility] Pneumococcal 7 2005-09-20 Completed [facility] of Conjugate, PCV7 00:00:00 [facility] ical (Prevnar7) Branch IPV 2005-09-20 Completed [facility] of 00:00:00 [facility] DTAP 2005-09-20 Completed [facility] of 00:00:00 [facility] HIB 3 Dose Schedule 2005-09-20 Completed [facility] rsity of 00:00:00 [facility] Hepatitis A Adult 2005-09-20 Completed [facility] of 00:00:00 [facility] Hep B, Adol or Pedi 2005-09-20 Completed [facility] rs[facility] of Dosage 00:00:00 [facility] Pneumococcal 13 2005-09-20 Completed [facility] of Conjugate, PCV13 00:00:00 [facility] dical (Prevnar 13) Branch Polio (IPV/OPV) 2005-09-20 Completed [facility] 00:00:00 [facility] DTaP, Unspecified 2005-09-20 Completed [facility] ity of Formulation 00:00:00 [facility] HEPATITIS A 2005-09-20 Completed [facility] of 00:00:00 [facility] HIB 4 Dose Schedule 2005-09-20 Completed [facility] rsity of 00:00:00 [facility] Pneumococcal 7 2005-09-20 Completed [facility] of Conjugate, PCV7 00:00:00 [facility] ical (Prevnar7) Branch IPV 2005-09-20 Completed [facility] of 00:00:00 [facility] DTAP 2005-09-20 Completed [facility] of 00:00:00 [facility] HIB 3 Dose Schedule 2005-09-20 Completed [facility]ive rsity of 00:00:00 [facility] Hepatitis A Adult 2005-09-20 Completed [facility] of 00:00:00 [facility] Hep B, Adol or Pedi 2005-09-20 Completed [facility] rs[facility] of Dosage 00:00:00 [facility] Pneumococcal 13 2005-09-20 Completed [facility] of Conjugate, PCV13 00:00:00 [facility] dical (Prevnar 13) Branch Polio (IPV/OPV) 2005-09-20 Completed [facility] 00:00:00 [facility] DTaP, Unspecified 2005-09-20 Completed [facility] ity of Formulation 00:00:00 [facility] HEPATITIS A 2005-09-20 Completed [facility] of 00:00:00 [facility] HIB 4 Dose Schedule 2005-09-20 Completed [facility] rsity of 00:00:00 [facility] Pneumococcal 7 2005-09-20 Completed [facility] of Conjugate, PCV7 00:00:00 [facility] (Prevnar7) Branch IPV 2005-09-20 Completed [facility] of 00:00:00 [facility] DTAP 2005-09-20 Completed [facility] of 00:00:00 [facility] HIB 3 Dose Schedule 2005-09-20 Completed [facility] rsity of 00:00:00 [facility] Hepatitis A Adult 2005-09-20 Completed [facility] of 00:00:00 [facility] Hep B, Adol or Pedi 2005-09-20 Completed [facility] rs[facility] of Dosage 00:00:00 [facility] Pneumococcal 13 2005-09-20 Completed [facility] of Conjugate, PCV13 00:00:00 [facility] dical (Prevnar 13) Branch Polio (IPV/OPV) 2005-09-20 Completed [facility] 00:00:00 [facility] DTaP, Unspecified 2005-09-20 Completed [facility] ity of Formulation 00:00:00 [facility] HEPATITIS A 2005-09-20 Completed [facility] of 00:00:00 [facility] HIB 4 Dose Schedule 2005-09-20 Completed [facility] rsity of 00:00:00 [facility] Pneumococcal 7 2005-09-20 Completed [facility] of Conjugate, PCV7 00:00:00 [facility] ical (Prevnar7) Branch IPV 2005-09-20 Completed [facility] of 00:00:00 [facility] DTAP 2005-09-20 Completed [facility] of 00:00:00 [facility] HIB 3 Dose Schedule 2005-09-20 Completed [facility] rsity of 00:00:00 [facility] Hepatitis A Adult 2005-09-20 Completed [facility] of 00:00:00 [facility] Hep B, Adol or Pedi 2005-09-20 Completed [facility] rs[facility] of Dosage 00:00:00 [facility] Pneumococcal 13 2005-09-20 Completed [facility] of Conjugate, PCV13 00:00:00 [facility] dical (Prevnar 13) Branch Polio (IPV/OPV) 2005-09-20 Completed [facility] 00:00:00 [facility] DTaP, Unspecified 2005-09-20 Completed [facility] ity of Formulation 00:00:00 [facility] HEPATITIS A 2005-09-20 Completed [facility] of 00:00:00 [facility] HIB 4 Dose Schedule 2005-09-20 Completed [facility] rsity of 00:00:00 [facility] Pneumococcal 7 2005-09-20 Completed [facility] of Conjugate, PCV7 00:00:00 [facility] (Prevnar7) Branch IPV 2005-09-20 Completed [facility] of 00:00:00 [facility] DTAP 2005-09-20 Completed [facility] of 00:00:00 [facility] HIB 3 Dose Schedule 2005-09-20 Completed [facility] rsity of 00:00:00 [facility] Hepatitis A Adult 2005-09-20 Completed [facility] 00:00:00 [facility] Hep B, Adol or Pedi 2005-09-20 Completed [facility] rs[facility] of Dosage 00:00:00 [facility] Pneumococcal 13 2005-09-20 Completed [facility] Conjugate, PCV13 00:00:00 [facility] (Prevnar 13) Branch Polio (IPV/OPV) 2005-09-20 Completed [facility] 00:00:00 [facility] DTaP, Unspecified 2005-09-20 Completed [facility] ity of Formulation 00:00:00 [facility] HEPATITIS A 2005-09-20 Completed [facility] of 00:00:00 [facility] HIB 4 Dose Schedule 2005-09-20 Completed [facility] rsity of 00:00:00 [facility] Pneumococcal 7 2005-09-20 Completed [facility] of Conjugate, PCV7 00:00:00 [facility] (Prevnar7) Branch IPV 2005-09-20 Completed [facility] of 00:00:00 [facility] DTAP 2005-09-20 Completed [facility] of 00:00:00 [facility] HIB 3 Dose Schedule 2005-09-20 Completed [facility] rs[facility] of 00:00:00 [facility] Hepatitis A Adult 2005-09-20 Completed [facility] 00:00:00 [facility] Hep B, Adol or Pedi 2005-09-20 Completed [facility] rs[facility] of Dosage 00:00:00 [facility] Pneumococcal 13 2005-09-20 Completed [facility] of Conjugate, PCV13 00:00:00 [facility] dical (Prevnar 13) Branch Polio (IPV/OPV) 2005-09-20 Completed [facility] 00:00:00 [facility] DTaP, Unspecified 2005-09-20 Completed [facility] of Formulation 00:00:00 [facility] HEPATITIS A 2005-09-20 Completed [facility] of 00:00:00 [facility] HIB 4 Dose Schedule 2005-09-20 Completed [facility] of 00:00:00 [facility] Pneumococcal 7 2005-09-20 Completed [facility] of Conjugate, PCV7 00:00:00 [facility] (Prevnar7) Branch IPV 2005-09-20 Completed [facility] of 00:00:00 [facility] DTAP 2005-09-20 Completed [facility] of 00:00:00 [facility] HIB 3 Dose Schedule 2005-09-20 Completed [facility] rsity of 00:00:00 [facility] Hepatitis A Adult 2005-09-20 Completed [facility] of 00:00:00 [facility] Hep B, Adol or Pedi 2005-09-20 Completed [facility] rsity of Dosage 00:00:00 [facility] Pneumococcal 13 2005-09-20 Completed [facility] of Conjugate, PCV13 00:00:00 [facility] (Prevnar 13) [place] Polio (IPV/OPV) 2005-09-20 Completed [facility] 00:00:00 [facility] DTaP, Unspecified 2005-09-20 Completed [facility] of Formulation 00:00:00 [facility] HEPATITIS A 2005-09-20 Completed [facility] of 00:00:00 [facility] HIB 4 Dose Schedule 2005-09-20 Completed [facility] rs[facility] of 00:00:00 [facility] Pneumococcal 7 2005-09-20 Completed [facility] of Conjugate, PCV7 00:00:00 [facility] (Prevnar7) Branch IPV 2005-09-20 Completed [facility] of 00:00:00 [facility] DTAP 2005-09-20 Completed [facility] of 00:00:00 [facility] HIB 3 Dose Schedule 2005-09-20 Completed [facility] rs[facility] of 00:00:00 [facility] Hepatitis A Adult 2005-09-20 Completed [facility] 00:00:00 [facility] Hep B, Adol or Pedi 2005-09-20 Completed [facility] rs[facility] of Dosage 00:00:00 [facility] Pneumococcal 13 2005-09-20 Completed [facility] of Conjugate, PCV13 00:00:00 [facility] dical (Prevnar 13) Branch Polio (IPV/OPV) 2005-09-20 Completed [facility] 00:00:00 [facility] DTaP, Unspecified 2005-09-20 Completed [facility] Formulation 00:00:00 [facility] HEPATITIS A 2005-09-20 Completed [facility] 00:00:00 [facility] HIB 4 Dose Schedule 2005-09-20 Completed [facility] rs[facility] of 00:00:00 [facility] Pneumococcal 7 2005-09-20 Completed [facility] of Conjugate, PCV7 00:00:00 [facility] (Prevnar7) Branch IPV 2005-09-20 Completed [facility] of 00:00:00 [facility] DTAP 2005-09-20 Completed [facility] 00:00:00 [facility] HIB 3 Dose Schedule 2005-09-20 Completed [facility] of 00:00:00 [facility] Hepatitis A Adult 2005-09-20 Completed [facility] 00:00:00 [facility] Hep B, Adol or Pedi 2005-09-20 Completed [facility] of Dosage 00:00:00 [facility] Pneumococcal 13 2005-09-20 Completed [facility] of Conjugate, PCV13 00:00:00 [facility] (Prevnar 13) Branch Polio (IPV/OPV) 2005-09-20 Completed [facility] 00:00:00 [facility] DTaP, Unspecified 2005-09-20 Completed [facility] of Formulation 00:00:00 [facility] HEPATITIS A 2005-09-20 Completed [facility] of 00:00:00 [facility] HIB 4 Dose Schedule 2005-09-20 Completed [facility] of 00:00:00 [facility] Pneumococcal 7 2005-09-20 Completed [facility] of Conjugate, PCV7 00:00:00 [facility] (Prevnar7) Branch IPV 2005-09-20 Completed [facility] of 00:00:00 [facility] DTAP 2005-09-20 Completed [facility] 00:00:00 [facility] HIB 3 Dose Schedule 2005-09-20 Completed [facility] of 00:00:00 [facility] Hepatitis A Adult 2005-09-20 Completed [facility] 00:00:00 [facility] Hep B, Adol or Pedi 2005-09-20 Completed [facility]ive rsity of Dosage 00:00:00 [facility] Pneumococcal 13 2005-09-20 Completed [facility] Conjugate, PCV13 00:00:00 [facility] dical (Prevnar 13) Branch Polio (IPV/OPV) 2005-09-20 Completed [facility] 00:00:00 [facility] DTaP, Unspecified 2005-09-20 Completed [facility] Formulation 00:00:00 [facility] HEPATITIS A 2005-09-20 Completed [facility] of 00:00:00 [facility] HIB 4 Dose Schedule 2005-09-20 Completed Unive rsity of 00:00:00 [facility] Pneumococcal 7 2005-09-20 Completed [facility] of Conjugate, PCV7 00:00:00 [place] [facility] (Prevnar7) Branch IPV 2005-09-20 Completed [facility] of 00:00:00 [facility] DTAP 2005-09-20 Completed [facility] of 00:00:00 [facility] HIB 3 Dose Schedule 2005-09-20 Completed [facility]ive rsity of 00:00:00 [facility] Hepatitis A Adult 2005-09-20 Completed [facility] 00:00:00 [facility] Hep B, Adol or Pedi 2005-09-20 Completed [facility]ive rs[facility] of Dosage 00:00:00 [facility] Pneumococcal 13 2005-09-20 Completed [facility] Conjugate, PCV13 00:00:00 [facility] (Prevnar 13) Branch Polio (IPV/OPV) 2005-09-20 Completed [facility] 00:00:00 [facility] DTaP, Unspecified 2005-09-20 Completed [facility] Formulation 00:00:00 [facility] HEPATITIS A 2005-09-20 Completed [facility] of 00:00:00 [facility] HIB 4 Dose Schedule 2005-09-20 Completed [facility]ive rsity of 00:00:00 [facility] Pneumococcal 7 2005-09-20 Completed [facility] of Conjugate, PCV7 00:00:00 [place] [facility] (Prevnar7) Branch IPV 2005-09-20 Completed [facility] 00:00:00 [facility] DTAP 2005-09-20 Completed [facility] of 00:00:00 [facility] HIB 3 Dose Schedule 2005-09-20 Completed [facility] rsity of 00:00:00 [facility] Hepatitis A Adult 2005-09-20 Completed [facility] 00:00:00 [facility] Hep B, Adol or Pedi 2005-09-20 Completed [facility]ive rs[facility] of Dosage 00:00:00 [facility] Pneumococcal 13 2005-09-20 Completed [facility] Conjugate, PCV13 00:00:00 [facility] dical (Prevnar 13) Branch Polio (IPV/OPV) 2005-09-20 Completed [facility] 00:00:00 [facility] DTaP, Unspecified 2005-09-20 Completed [facility] Formulation 00:00:00 [facility] HEPATITIS A 2005-09-20 Completed [facility] of 00:00:00 [facility] HIB 4 Dose Schedule 2005-09-20 Completed [facility]ive rsity of 00:00:00 [facility] Pneumococcal 7 2005-09-20 Completed [facility] of Conjugate, PCV7 00:00:00 [place] [facility] (Prevnar7) Branch IPV 2005-09-20 Completed [facility] 00:00:00 [facility] DTAP 2005-09-20 Completed [facility] of 00:00:00 [facility] HIB 3 Dose Schedule 2005-09-20 Completed [facility] rsity of 00:00:00 [facility] Hepatitis A Adult 2005-09-20 Completed [facility] 00:00:00 [facility] Hep B, Adol or Pedi 2005-09-20 Completed [facility]ive rsity of Dosage 00:00:00 [facility] Pneumococcal 13 2005-09-20 Completed [facility] Conjugate, PCV13 00:00:00 [facility] (Prevnar 13) [place] Polio (IPV/OPV) 2005-09-20 Completed [facility] 00:00:00 [facility] DTaP, Unspecified 2005-09-20 Completed [facility] of Formulation 00:00:00 [facility] HEPATITIS A 2005-09-20 Completed [facility] of 00:00:00 [facility] HIB 4 Dose Schedule 2005-09-20 Completed [facility]ive rsity of 00:00:00 [facility] Pneumococcal 7 2005-09-20 Completed [facility] of Conjugate, PCV7 00:00:00 [place] [facility] (Prevnar7) Branch IPV 2005-09-20 Completed [facility] of 00:00:00 [facility] DTAP 2005-09-20 Completed [facility] of 00:00:00 [facility] HIB 3 Dose Schedule 2005-09-20 Completed [facility]ive rsity of 00:00:00 [facility] Hepatitis A Adult 2005-09-20 Completed [facility] of 00:00:00 [facility] Hep B, Adol or Pedi 2005-09-20 Completed [facility] rs[facility] of Dosage 00:00:00 [facility] Pneumococcal 13 2005-09-20 Completed [facility] of Conjugate, PCV13 00:00:00 [facility] dical (Prevnar 13) Branch Polio (IPV/OPV) 2005-09-20 Completed [facility] 00:00:00 [facility] DTaP, Unspecified 2005-09-20 Completed [facility] of Formulation 00:00:00 [facility] HEPATITIS A 2005-09-20 Completed [facility] of 00:00:00 [facility] HIB 4 Dose Schedule 2005-09-20 Completed [facility]ive rsity of 00:00:00 [facility] Pneumococcal 7 2005-09-20 Completed [facility] of Conjugate, PCV7 00:00:00 [facility] ical (Prevnar7) Branch IPV 2005-09-20 Completed [facility] of 00:00:00 [facility] DTAP 2004-07-22 Completed [facility] of 00:00:00 [facility] Hep B, Adol or Pedi 2004-07-22 Completed [facility]ive rsity of Dosage 00:00:00 [facility] MMR 2004-07-22 Completed [facility] of 00:00:00 [facility] Polio (IPV/OPV) 2004-07-22 Completed [facility] of 00:00:00 [facility] Varicella 2004-07-22 Completed University of (varivax)(chicken 00:00:00 [facility] edical pox) Branch DTAP 2004-07-22 Completed [facility] of 00:00:00 [facility] Hep B, Adol or Pedi 2004-07-22 Completed [facility]ive rsity of Dosage 00:00:00 [facility] MMR 2004-07-22 Completed [facility] of 00:00:00 [facility] Polio (IPV/OPV) 2004-07-22 Completed [facility] 00:00:00 [facility] Varicella 2004-07-22 Completed [facility] of (varivax)(chicken 00:00:00 [place] [facility] pox) [facility] DTAP 2004-07-22 Completed [facility] 00:00:00 [facility] Hep B, Adol or Pedi 2004-07-22 Completed [facility] rs[facility] of Dosage 00:00:00 [facility] MMR 2004-07-22 Completed [facility] of 00:00:00 [facility] Polio (IPV/OPV) 2004-07-22 Completed [facility] 00:00:00 [facility] Varicella 2004-07-22 Completed [facility] of (varivax)(chicken 00:00:00 [place] [facility] pox) [facility] DTAP 2004-07-22 Completed [facility] 00:00:00 [facility] Hep B, Adol or Pedi 2004-07-22 Completed [facility] rsity of Dosage 00:00:00 [facility] MMR 2004-07-22 Completed [facility] of 00:00:00 [facility] Polio (IPV/OPV) 2004-07-22 Completed [facility] 00:00:00 [facility] Varicella 2004-07-22 Completed [facility] of (varivax)(chicken 00:00:00 [place] [facility] pox) Branch DTAP 2004-07-22 Completed [facility] of 00:00:00 [facility] Hep B, Adol or Pedi 2004-07-22 Completed [facility] rs[facility] of Dosage 00:00:00 [facility] MMR 2004-07-22 Completed [facility] of 00:00:00 [facility] Polio (IPV/OPV) 2004-07-22 Completed [facility] 00:00:00 [facility] Varicella 2004-07-22 Completed [facility] (varivax)(chicken 00:00:00 [place] [facility] pox) [facility] DTAP 2004-07-22 Completed [facility] of 00:00:00 [facility] Branch Hep B, Adol or Pedi 2004-07-22 Completed [facility]ive rsity of Dosage 00:00:00 [facility] MMR 2004-07-22 Completed [facility] of 00:00:00 [facility] Polio (IPV/OPV) 2004-07-22 Completed [facility] 00:00:00 [facility] Varicella 2004-07-22 Completed [facility] (varivax)(chicken 00:00:00 [place] [facility] pox) [facility] DTAP 2004-07-22 Completed [facility] of 00:00:00 [facility] Hep B, Adol or Pedi 2004-07-22 Completed [facility]ive rs[facility] of Dosage 00:00:00 [facility] MMR 2004-07-22 Completed [facility] of 00:00:00 [facility] Polio (IPV/OPV) 2004-07-22 Completed [facility] 00:00:00 [facility] Varicella 2004-07-22 Completed [facility] of (varivax)(chicken 00:00:00 [place] [facility] pox) Branch DTAP 2004-07-22 Completed [facility] 00:00:00 [facility] Branch Hep B, Adol or Pedi 2004-07-22 Completed [facility]ive rsity of Dosage 00:00:00 [facility] MMR 2004-07-22 Completed [facility] of 00:00:00 [facility] Polio (IPV/OPV) 2004-07-22 Completed [facility] 00:00:00 [facility] Varicella 2004-07-22 Completed [facility] (varivax)(chicken 00:00:00 [place] [facility] pox) [facility] DTAP 2004-07-22 Completed [facility] of 00:00:00 [facility] Hep B, Adol or Pedi 2004-07-22 Completed [facility]ive rsity of Dosage 00:00:00 [facility] MMR 2004-07-22 Completed [facility] of 00:00:00 [facility] Polio (IPV/OPV) 2004-07-22 Completed [facility] 00:00:00 [facility] Varicella 2004-07-22 Completed [facility] of (varivax)(chicken 00:00:00 [place] [facility] pox) Branch DTAP 2004-07-22 Completed [facility] of 00:00:00 [facility] Hep B, Adol or Pedi 2004-07-22 Completed [facility]ive rsity of Dosage 00:00:00 [facility] MMR 2004-07-22 Completed [facility] of 00:00:00 [facility] Polio (IPV/OPV) 2004-07-22 Completed [facility] 00:00:00 [facility] Varicella 2004-07-22 Completed [facility] (varivax)(chicken 00:00:00 [place] [facility] pox) Branch DTAP 2004-07-22 Completed [facility] of 00:00:00 [facility] Hep B, Adol or Pedi 2004-07-22 Completed [facility] rs[facility] of Dosage 00:00:00 [facility] MMR 2004-07-22 Completed [facility] of 00:00:00 [facility] Polio (IPV/OPV) 2004-07-22 Completed [facility] 00:00:00 [facility] Varicella 2004-07-22 Completed [facility] (varivax)(chicken 00:00:00 [place] [facility] pox) Branch DTAP 2004-07-22 Completed [facility] 00:00:00 [facility] Hep B, Adol or Pedi 2004-07-22 Completed [facility]ive rsity of Dosage 00:00:00 [facility] MMR 2004-07-22 Completed [facility] of 00:00:00 [facility] Polio (IPV/OPV) 2004-07-22 Completed [facility] 00:00:00 [facility] Varicella 2004-07-22 Completed [facility] of (varivax)(chicken 00:00:00 [place] [facility] pox) Branch DTAP 2004-07-22 Completed [facility] 00:00:00 [facility] Hep B, Adol or Pedi 2004-07-22 Completed [facility]ive rsity of Dosage 00:00:00 [facility] MMR 2004-07-22 Completed [facility] of 00:00:00 [facility] Polio (IPV/OPV) 2004-07-22 Completed [facility] 00:00:00 [facility] Varicella 2004-07-22 Completed [facility] (varivax)(chicken 00:00:00 [place] [facility] pox) Branch DTAP 2004-07-22 Completed [facility] 00:00:00 [facility] Hep B, Adol or Pedi 2004-07-22 Completed [facility] rs[facility] of Dosage 00:00:00 [facility] MMR 2004-07-22 Completed [facility] of 00:00:00 [facility] Polio (IPV/OPV) 2004-07-22 Completed [facility] 00:00:00 [facility] Varicella 2004-07-22 Completed [facility] (varivax)(chicken 00:00:00 [place] [facility] pox) Branch DTAP 2004-07-22 Completed [facility] 00:00:00 [facility] Hep B, Adol or Pedi 2004-07-22 Completed [facility] of Dosage 00:00:00 [facility] MMR 2004-07-22 Completed [facility] of 00:00:00 [facility] Polio (IPV/OPV) 2004-07-22 Completed [facility] 00:00:00 [facility] Varicella 2004-07-22 Completed [facility] (varivax)(chicken 00:00:00 [place] [facility] pox) Branch DTAP 2004-07-22 Completed [facility] 00:00:00 [facility] Hep B, Adol or Pedi 2004-07-22 Completed [facility] rs[facility] of Dosage 00:00:00 [facility] MMR 2004-07-22 Completed [facility] of 00:00:00 [facility] Polio (IPV/OPV) 2004-07-22 Completed [facility] 00:00:00 [facility] Varicella 2004-07-22 Completed [facility] (varivax)(chicken 00:00:00 [place] [facility] pox) [facility] DTAP 2004-07-22 Completed [facility] of 00:00:00 [facility] Hep B, Adol or Pedi 2004-07-22 Completed [facility]ive rsity of Dosage 00:00:00 [facility] MMR 2004-07-22 Completed [facility] of 00:00:00 [facility] Polio (IPV/OPV) 2004-07-22 Completed [facility] 00:00:00 [facility] Varicella 2004-07-22 Completed [facility] of (varivax)(chicken 00:00:00 [place] [facility] pox) Branch DTAP 2004-07-22 Completed [facility] 00:00:00 [facility] Hep B, Adol or Pedi 2004-07-22 Completed [facility]ive rsity of Dosage 00:00:00 [facility] MMR 2004-07-22 Completed [facility] of 00:00:00 [facility] Polio (IPV/OPV) 2004-07-22 Completed [facility] 00:00:00 [facility] Varicella 2004-07-22 Completed [facility] of (varivax)(chicken 00:00:00 [place] [facility] pox) Branch DTAP 2004-07-22 Completed [facility] 00:00:00 [facility] Hep B, Adol or Pedi 2004-07-22 Completed [facility] rs[facility] of Dosage 00:00:00 [facility] MMR 2004-07-22 Completed [facility] of 00:00:00 [facility] Polio (IPV/OPV) 2004-07-22 Completed [facility] 00:00:00 [facility] Varicella 2004-07-22 Completed [facility] of (varivax)(chicken 00:00:00 [place] [facility] pox) Branch DTAP 2004-07-22 Completed [facility] of 00:00:00 [facility] Hep B, Adol or Pedi 2004-07-22 Completed [facility]ive rsity of Dosage 00:00:00 [facility] MMR 2004-07-22 Completed [facility] of 00:00:00 [facility] Polio (IPV/OPV) 2004-07-22 Completed [facility] 00:00:00 [facility] Varicella 2004-07-22 Completed [facility] (varivax)(chicken 00:00:00 [place] [facility] pox) Branch DTAP 2004-07-22 Completed [facility] of 00:00:00 [facility] Hep B, Adol or Pedi 2004-07-22 Completed [facility] rsity of Dosage 00:00:00 [facility] MMR 2004-07-22 Completed [facility] of 00:00:00 [facility] Polio (IPV/OPV) 2004-07-22 Completed [facility] 00:00:00 [facility] Varicella 2004-07-22 Completed [facility] of (varivax)(chicken 00:00:00 [place] [facility] pox) Branch DTAP 2004-07-22 Completed [facility] 00:00:00 [facility] Hep B, Adol or Pedi 2004-07-22 Completed [facility]ive rsity of Dosage 00:00:00 [facility] MMR 2004-07-22 Completed [facility] of 00:00:00 [facility] Polio (IPV/OPV) 2004-07-22 Completed [facility] 00:00:00 [facility] Varicella 2004-07-22 Completed [facility] of (varivax)(chicken 00:00:00 [place] [facility] pox) Branch DTAP 2004-07-22 Completed [facility] of 00:00:00 [facility] Hep B, Adol or Pedi 2004-07-22 Completed [facility]ive rsity of Dosage 00:00:00 [facility] MMR 2004-07-22 Completed [facility] of 00:00:00 [facility] Polio (IPV/OPV) 2004-07-22 Completed [facility] 00:00:00 [facility] Varicella 2004-07-22 Completed [facility] of (varivax)(chicken 00:00:00 [place] [facility] pox) Branch DTAP 2004-07-22 Completed [facility] of 00:00:00 [facility] Hep B, Adol or Pedi 2004-07-22 Completed [facility]ive rsity of Dosage 00:00:00 [facility] MMR 2004-07-22 Completed [facility] of 00:00:00 [facility] Polio (IPV/OPV) 2004-07-22 Completed [facility] 00:00:00 [facility] Varicella 2004-07-22 Completed [facility] of (varivax)(chicken 00:00:00 [place] [facility] pox) Branch DTAP 2004-07-22 Completed [facility] of 00:00:00 [facility] Hep B, Adol or Pedi 2004-07-22 Completed [facility]ive rsity of Dosage 00:00:00 [facility] MMR 2004-07-22 Completed [facility] of 00:00:00 [facility] Polio (IPV/OPV) 2004-07-22 Completed [facility] 00:00:00 [facility] Varicella 2004-07-22 Completed [facility] of (varivax)(chicken 00:00:00 [place] [facility] pox) Branch DTAP 2004-07-22 Completed [facility] of 00:00:00 [facility] Hep B, Adol or Pedi 2004-07-22 Completed [facility]ive rsity of Dosage 00:00:00 [facility] MMR 2004-07-22 Completed [facility] of 00:00:00 [facility] Polio (IPV/OPV) 2004-07-22 Completed [facility] 00:00:00 [facility] Varicella 2004-07-22 Completed [facility] of (varivax)(chicken 00:00:00 [place] [facility] pox) Branch DTAP 2004-07-22 Completed [facility] of 00:00:00 [facility] Hep B, Adol or Pedi 2004-07-22 Completed [facility]ive rsity of Dosage 00:00:00 [facility] MMR 2004-07-22 Completed [facility] of 00:00:00 [facility] Polio (IPV/OPV) 2004-07-22 Completed [facility] 00:00:00 [facility] Varicella 2004-07-22 Completed [facility] of (varivax)(chicken 00:00:00 [place] [facility] pox) Branch DTAP 2004-07-22 Completed [facility] of 00:00:00 [facility] Hep B, Adol or Pedi 2004-07-22 Completed [facility]ive rsity of Dosage 00:00:00 [facility] MMR 2004-07-22 Completed [facility] of 00:00:00 [facility] Polio (IPV/OPV) 2004-07-22 Completed [facility] 00:00:00 [facility] Varicella 2004-07-22 Completed [facility] of (varivax)(chicken 00:00:00 [place] [facility] pox) Branch DTAP 2004-07-22 Completed [facility] of 00:00:00 [facility] Hep B, Adol or Pedi 2004-07-22 Completed [facility]ive rsity of Dosage 00:00:00 [facility] MMR 2004-07-22 Completed [facility] of 00:00:00 [facility] Polio (IPV/OPV) 2004-07-22 Completed [facility] 00:00:00 [facility] Varicella 2004-07-22 Completed [facility] (varivax)(chicken 00:00:00 [place] [facility] pox) Branch DTAP 2004-07-22 Completed [facility] 00:00:00 [facility] Hep B, Adol or Pedi 2004-07-22 Completed [facility] rs[facility] of Dosage 00:00:00 [facility] MMR 2004-07-22 Completed [facility] of 00:00:00 [facility] Polio (IPV/OPV) 2004-07-22 Completed [facility] 00:00:00 [facility] Varicella 2004-07-22 Completed [facility] (varivax)(chicken 00:00:00 [place] [facility] pox) Branch DTAP 2004-07-22 Completed [facility] 00:00:00 [facility] Hep B, Adol or Pedi 2004-07-22 Completed [facility] rsity of Dosage 00:00:00 [facility] MMR 2004-07-22 Completed [facility] of 00:00:00 [facility] Polio (IPV/OPV) 2004-07-22 Completed [facility] 00:00:00 [facility] Varicella 2004-07-22 Completed [facility] (varivax)(chicken 00:00:00 [place] [facility] pox) Branch DTAP 2004-07-22 Completed [facility] 00:00:00 [facility] Hep B, Adol or Pedi 2004-07-22 Completed [facility] rs[facility] of Dosage 00:00:00 [facility] MMR 2004-07-22 Completed [facility] of 00:00:00 [facility] Polio (IPV/OPV) 2004-07-22 Completed [facility] 00:00:00 [facility] Varicella 2004-07-22 Completed [facility] (varivax)(chicken 00:00:00 [place] [facility] pox) Branch DTAP 2004-07-22 Completed [facility] 00:00:00 [facility] Hep B, Adol or Pedi 2004-07-22 Completed [facility] rsity of Dosage 00:00:00 [facility] MMR 2004-07-22 Completed [facility] of 00:00:00 [facility] Polio (IPV/OPV) 2004-07-22 Completed [facility] 00:00:00 [facility] Varicella 2004-07-22 Completed [facility] (varivax)(chicken 00:00:00 [place] [facility] pox) Branch DTAP 2004-07-22 Completed [facility] 00:00:00 [facility] Hep B, Adol or Pedi 2004-07-22 Completed [facility]ive rsity of Dosage 00:00:00 [facility] MMR 2004-07-22 Completed [facility] of 00:00:00 [facility] Polio (IPV/OPV) 2004-07-22 Completed [facility] 00:00:00 [facility] Varicella 2004-07-22 Completed [facility] of (varivax)(chicken 00:00:00 [place] [facility] pox) Branch DTAP 2004-07-22 Completed [facility] of 00:00:00 [facility] Hep B, Adol or Pedi 2004-07-22 Completed [facility]ive rsity of Dosage 00:00:00 [facility] MMR 2004-07-22 Completed [facility] of 00:00:00 [facility] Polio (IPV/OPV) 2004-07-22 Completed [facility] 00:00:00 [facility] Varicella 2004-07-22 Completed [facility] of (varivax)(chicken 00:00:00 [facility] edical pox) Branch DTAP 2004-07-22 Completed [facility] of 00:00:00 [facility] Hep B, Adol or Pedi 2004-07-22 Completed Unive rsity of Dosage 00:00:00 [facility] MMR 2004-07-22 Completed [facility] of 00:00:00 [facility] Polio (IPV/OPV) 2004-07-22 Completed [facility] 00:00:00 [facility] Varicella 2004-07-22 Completed [facility] of (varivax)(chicken 00:00:00 [place] [facility] pox) Branch DTAP 2004-07-22 Completed [facility] 00:00:00 [facility] Hep B, Adol or Pedi 2004-07-22 Completed [facility]ive rsity of Dosage 00:00:00 [facility] MMR 2004-07-22 Completed [facility] of 00:00:00 [facility] Polio (IPV/OPV) 2004-07-22 Completed [facility] 00:00:00 [facility] Varicella 2004-07-22 Completed [facility] of (varivax)(chicken 00:00:00 [place] [facility] pox) Branch DTAP 2004-07-22 Completed [facility] of 00:00:00 [facility] Hep B, Adol or Pedi 2004-07-22 Completed [facility] rs[facility] of Dosage 00:00:00 [facility] MMR 2004-07-22 Completed [facility] of 00:00:00 [facility] Polio (IPV/OPV) 2004-07-22 Completed [facility] 00:00:00 [facility] Varicella 2004-07-22 Completed [facility] of (varivax)(chicken 00:00:00 [place] [facility] pox) Branch DTaP, Unspecified 2004-07-22 Completed [facility] of Formulation 00:00:00 [facility] IPV 2004-07-22 Completed [facility] of 00:00:00 [facility] DTAP 2004-07-22 Completed [facility] of 00:00:00 [facility] Hep B, Adol or Pedi 2004-07-22 Completed [facility] rs[facility] of Dosage 00:00:00 [facility] MMR 2004-07-22 Completed [facility] of 00:00:00 [facility] Polio (IPV/OPV) 2004-07-22 Completed [facility] 00:00:00 [facility] Varicella 2004-07-22 Completed [facility] of (varivax)(chicken 00:00:00 [place] [facility] pox) Branch DTaP, Unspecified 2004-07-22 Completed [facility] of Formulation 00:00:00 [facility] IPV 2004-07-22 Completed [facility] of 00:00:00 [facility] DTAP 2004-07-22 Completed [facility] of 00:00:00 [facility] Hep B, Adol or Pedi 2004-07-22 Completed [facility]ive rsity of Dosage 00:00:00 [facility] MMR 2004-07-22 Completed [facility] of 00:00:00 [facility] Polio (IPV/OPV) 2004-07-22 Completed [facility] 00:00:00 [facility] Varicella 2004-07-22 Completed [facility] (varivax)(chicken 00:00:00 [place] [facility] pox) Branch DTaP, Unspecified 2004-07-22 Completed [facility] of Formulation 00:00:00 [facility] IPV 2004-07-22 Completed [facility] of 00:00:00 [facility] DTAP 2004-07-22 Completed [facility] of 00:00:00 [facility] Hep B, Adol or Pedi 2004-07-22 Completed [facility] rs[facility] of Dosage 00:00:00 [facility] MMR 2004-07-22 Completed [facility] of 00:00:00 [facility] Polio (IPV/OPV) 2004-07-22 Completed [facility] 00:00:00 [facility] Varicella 2004-07-22 Completed [facility] of (varivax)(chicken 00:00:00 [place] [facility] pox) Branch DTaP, Unspecified 2004-07-22 Completed [facility] Formulation 00:00:00 [facility] IPV 2004-07-22 Completed [facility] of 00:00:00 [facility] DTAP 2004-07-22 Completed [facility] of 00:00:00 [facility] Hep B, Adol or Pedi 2004-07-22 Completed [facility] rs[facility] of Dosage 00:00:00 [facility] MMR 2004-07-22 Completed [facility] of 00:00:00 [facility] Polio (IPV/OPV) 2004-07-22 Completed [facility] 00:00:00 [facility] Varicella 2004-07-22 Completed [facility] of (varivax)(chicken 00:00:00 [place] [facility] pox) Branch DTaP, Unspecified 2004-07-22 Completed [facility] Formulation 00:00:00 [facility] IPV 2004-07-22 Completed [facility] of 00:00:00 [facility] DTAP 2004-07-22 Completed [facility] of 00:00:00 [facility] Hep B, Adol or Pedi 2004-07-22 Completed [facility] rs[facility] of Dosage 00:00:00 [facility] MMR 2004-07-22 Completed [facility] of 00:00:00 [facility] Polio (IPV/OPV) 2004-07-22 Completed [facility] 00:00:00 [facility] Varicella 2004-07-22 Completed [facility] of (varivax)(chicken 00:00:00 [place] [facility] pox) Branch DTaP, Unspecified 2004-07-22 Completed [facility] Formulation 00:00:00 [facility] IPV 2004-07-22 Completed [facility] of 00:00:00 [facility] DTAP 2004-07-22 Completed [facility] of 00:00:00 [facility] Hep B, Adol or Pedi 2004-07-22 Completed [facility] rs[facility] of Dosage 00:00:00 [facility] MMR 2004-07-22 Completed [facility] of 00:00:00 [facility] Polio (IPV/OPV) 2004-07-22 Completed [facility] 00:00:00 [facility] Varicella 2004-07-22 Completed [facility] of (varivax)(chicken 00:00:00 [place] [facility] pox) Branch DTaP, Unspecified 2004-07-22 Completed [facility] Formulation 00:00:00 [facility] IPV 2004-07-22 Completed [facility] of 00:00:00 [facility] DTAP 2004-07-22 Completed [facility] 00:00:00 [facility] Hep B, Adol or Pedi 2004-07-22 Completed [facility] rs[facility] of Dosage 00:00:00 [facility] MMR 2004-07-22 Completed [facility] of 00:00:00 [facility] Polio (IPV/OPV) 2004-07-22 Completed [facility] 00:00:00 [facility] Varicella 2004-07-22 Completed [facility] of (varivax)(chicken 00:00:00 [place] [facility] pox) Branch DTaP, Unspecified 2004-07-22 Completed [facility] Formulation 00:00:00 [facility] IPV 2004-07-22 Completed [facility] 00:00:00 [facility] DTAP 2004-07-22 Completed [facility] 00:00:00 [facility] Hep B, Adol or Pedi 2004-07-22 Completed [facility] Dosage 00:00:00 [facility] MMR 2004-07-22 Completed [facility] 00:00:00 [facility] Polio (IPV/OPV) 2004-07-22 Completed [facility] 00:00:00 [facility] Varicella 2004-07-22 Completed [facility] (varivax)(chicken 00:00:00 [place] [facility] DTaP, Unspecified 2004-07-22 Completed [facility] Formulation 00:00:00 [facility] IPV 2004-07-22 Completed [facility] 00:00:00 [facility] DTAP 2004-07-22 Completed [facility] 00:00:00 [facility] Hep B, Adol or Pedi 2004-07-22 Completed [facility] Dosage 00:00:00 [facility] MMR 2004-07-22 Completed [facility] 00:00:00 [facility] Polio (IPV/OPV) 2004-07-22 Completed [facility] 00:00:00 [facility] Varicella 2004-07-22 Completed [facility] (varivax)(chicken 00:00:00 [place] [facility] pox[facility] DTaP, Unspecified 2004-07-22 Completed [facility] Formulation 00:00:00 [facility] IPV 2004-07-22 Completed [facility] 00:00:00 [facility] DTAP 2004-07-22 Completed [facility] 00:00:00 [facility] Hep B, Adol or Pedi 2004-07-22 Completed [facility] Dosage 00:00:00 [facility] MMR 2004-07-22 Completed [facility] 00:00:00 [facility] Polio (IPV/OPV) 2004-07-22 Completed [facility] 00:00:00 [facility] Varicella 2004-07-22 Completed [facility] (varivax)(chicken 00:00:00 [facility] edical pox) Branch DTaP, Unspecified 2004-07-22 Completed [facility] Formulation 00:00:00 [facility] IPV 2004-07-22 Completed [facility] 00:00:00 [facility] DTAP 2004-07-22 Completed [facility] 00:00:00 [facility] Hep B, Adol or Pedi 2004-07-22 Completed [facility] Dosage 00:00:00 [facility] MMR 2004-07-22 Completed [facility] 00:00:00 [facility] Polio (IPV/OPV) 2004-07-22 Completed [facility] 00:00:00 [facility] Varicella 2004-07-22 Completed [facility] (varivax)(chicken 00:00:00 [facility] edical pox) Branch DTaP, Unspecified 2004-07-22 Completed [facility] Formulation 00:00:00 [facility] IPV 2004-07-22 Completed [facility] 00:00:00 [facility] DTAP 2004-07-22 Completed [facility] 00:00:00 [facility] Hep B, Adol or Pedi 2004-07-22 Completed [facility] Dosage 00:00:00 [facility] MMR 2004-07-22 Completed [facility] 00:00:00 [facility] Polio (IPV/OPV) 2004-07-22 Completed [facility] 00:00:00 [facility] Varicella 2004-07-22 Completed [facility] (varivax)(chicken 00:00:00 [place] [facility] DTaP, Unspecified 2004-07-22 Completed [facility] Formulation 00:00:00 [facility] IPV 2004-07-22 Completed [facility] 00:00:00 [facility] DTAP 2004-07-22 Completed [facility] 00:00:00 [facility] Hep B, Adol or Pedi 2004-07-22 Completed [facility] Dosage 00:00:00 [facility] MMR 2004-07-22 Completed [facility] 00:00:00 [facility] Polio (IPV/OPV) 2004-07-22 Completed [facility] 00:00:00 [facility] Varicella 2004-07-22 Completed [facility] (varivax)(chicken 00:00:00 [facility] edical pox) Branch DTaP, Unspecified 2004-07-22 Completed [facility] Formulation 00:00:00 [facility] IPV 2004-07-22 Completed [facility] 00:00:00 [facility] DTAP 2004-07-22 Completed [facility] 00:00:00 [facility] Hep B, Adol or Pedi 2004-07-22 Completed [facility] Dosage 00:00:00 [facility] MMR 2004-07-22 Completed [facility] 00:00:00 [facility] Polio (IPV/OPV) 2004-07-22 Completed [facility] 00:00:00 [facility] Varicella 2004-07-22 Completed [facility] (varivax)(chicken 00:00:00 [facility] edical pox) Branch DTaP, Unspecified 2004-07-22 Completed [facility] Formulation 00:00:00 [facility] IPV 2004-07-22 Completed [facility] 00:00:00 [facility] DTAP 2004-07-22 Completed [facility] 00:00:00 [facility] Hep B, Adol or Pedi 2004-07-22 Completed [facility] Dosage 00:00:00 [facility] MMR 2004-07-22 Completed [facility] 00:00:00 [facility] Polio (IPV/OPV) 2004-07-22 Completed [facility] 00:00:00 [facility] Varicella 2004-07-22 Completed [facility] (varivax)(chicken 00:00:00 [place] [facility] DTaP, Unspecified 2004-07-22 Completed [facility] Formulation 00:00:00 [facility] IPV 2004-07-22 Completed [facility] 00:00:00 [facility] DTAP 2004-07-22 Completed [facility] 00:00:00 [facility] Hep B, Adol or Pedi 2004-07-22 Completed [facility] Dosage 00:00:00 [facility] MMR 2004-07-22 Completed [facility] 00:00:00 [facility] Polio (IPV/OPV) 2004-07-22 Completed [facility] 00:00:00 [facility] Varicella 2004-07-22 Completed [facility] (varivax)(chicken 00:00:00 [facility] edical pox) Branch DTaP, Unspecified 2004-07-22 Completed [facility] Formulation 00:00:00 [facility] IPV 2004-07-22 Completed [facility] 00:00:00 [facility] DTAP 2004-07-22 Completed [facility] 00:00:00 [facility] Hep B, Adol or Pedi 2004-07-22 Completed [facility] Dosage 00:00:00 [facility] MMR 2004-07-22 Completed [facility] 00:00:00 [facility] Polio (IPV/OPV) 2004-07-22 Completed [facility] 00:00:00 [facility] Varicella 2004-07-22 Completed [facility] (varivax)(chicken 00:00:00 [place] [facility] pox[facility] DTaP, Unspecified 2004-07-22 Completed [facility] Formulation 00:00:00 [facility] IPV 2004-07-22 Completed [facility] 00:00:00 [facility] DTAP 2004-07-22 Completed [facility] 00:00:00 [facility] Hep B, Adol or Pedi 2004-07-22 Completed [facility] Dosage 00:00:00 [facility] MMR 2004-07-22 Completed [facility] 00:00:00 [facility] Polio (IPV/OPV) 2004-07-22 Completed [facility] 00:00:00 [facility] Varicella 2004-07-22 Completed [facility] (varivax)(chicken 00:00:00 [place] [facility] pox[facility] DTaP, Unspecified 2004-07-22 Completed [facility] Formulation 00:00:00 [facility] IPV 2004-07-22 Completed [facility] 00:00:00 [facility] DTAP 2004-07-22 Completed [facility] 00:00:00 [facility] Hep B, Adol or Pedi 2004-07-22 Completed [facility] Dosage 00:00:00 [facility] MMR 2004-07-22 Completed [facility] 00:00:00 [facility] Polio (IPV/OPV) 2004-07-22 Completed [facility] 00:00:00 [facility] Varicella 2004-07-22 Completed [facility] (varivax)(chicken 00:00:00 [place] [facility] pox) [facility] DTaP, Unspecified 2004-07-22 Completed [facility] Formulation 00:00:00 [facility] IPV 2004-07-22 Completed [facility] 00:00:00 [facility] DTAP 2004-07-22 Completed [facility] 00:00:00 [facility] Hep B, Adol or Pedi 2004-07-22 Completed [facility] Dosage 00:00:00 [facility] MMR 2004-07-22 Completed [facility] 00:00:00 [facility] Polio (IPV/OPV) 2004-07-22 Completed [facility] 00:00:00 [facility] Varicella 2004-07-22 Completed [facility] (varivax)(chicken 00:00:00 [place] [facility] pox) [facility] DTaP, Unspecified 2004-07-22 Completed [facility] Formulation 00:00:00 [facility] IPV 2004-07-22 Completed [facility] 00:00:00 [facility] DTAP 2004-07-22 Completed [facility] 00:00:00 [facility] Hep B, Adol or Pedi 2004-07-22 Completed [facility] Dosage 00:00:00 [facility] MMR 2004-07-22 Completed [facility] 00:00:00 [facility] Polio (IPV/OPV) 2004-07-22 Completed [facility] 00:00:00 [facility] Varicella 2004-07-22 Completed [facility] (varivax)(chicken 00:00:00 [place] [facility] pox) [facility] DTaP, Unspecified 2004-07-22 Completed [facility] Formulation 00:00:00 [facility] IPV 2004-07-22 Completed [facility] 00:00:00 [facility] DTAP 2004-07-22 Completed [facility] 00:00:00 [facility] Hep B, Adol or Pedi 2004-07-22 Completed [facility] Dosage 00:00:00 [facility] MMR 2004-07-22 Completed [facility] 00:00:00 [facility] Polio (IPV/OPV) 2004-07-22 Completed [facility] 00:00:00 [facility] Varicella 2004-07-22 Completed [facility] (varivax)(chicken 00:00:00 [place] [facility] pox) [facility] DTaP, Unspecified 2004-07-22 Completed [facility] Formulation 00:00:00 [facility] IPV 2004-07-22 Completed [facility] 00:00:00 [facility] DTAP 2004-07-22 Completed [facility] 00:00:00 [facility] Hep B, Adol or Pedi 2004-07-22 Completed [facility] Dosage 00:00:00 [facility] MMR 2004-07-22 Completed [facility] 00:00:00 [facility] Polio (IPV/OPV) 2004-07-22 Completed [facility] 00:00:00 [facility] Varicella 2004-07-22 Completed [facility] (varivax)(chicken 00:00:00 [facility] edical pox) Branch DTaP, Unspecified 2004-07-22 Completed [facility] Formulation 00:00:00 [facility] IPV 2004-07-22 Completed [facility] 00:00:00 [facility] DTAP 2004-07-22 Completed [facility] 00:00:00 [facility] Hep B, Adol or Pedi 2004-07-22 Completed [facility] Dosage 00:00:00 [facility] MMR 2004-07-22 Completed [facility] 00:00:00 [facility] Polio (IPV/OPV) 2004-07-22 Completed [facility] 00:00:00 [facility] Varicella 2004-07-22 Completed [facility] (varivax)(chicken 00:00:00 [place] [facility] pox[facility] DTaP, Unspecified 2004-07-22 Completed [facility] Formulation 00:00:00 [facility] IPV 2004-07-22 Completed [facility] 00:00:00 [facility] DTAP 2004-07-22 Completed [facility] 00:00:00 [facility] Hep B, Adol or Pedi 2004-07-22 Completed [facility] Dosage 00:00:00 [facility] MMR 2004-07-22 Completed [facility] 00:00:00 [facility] Polio (IPV/OPV) 2004-07-22 Completed [facility] 00:00:00 [facility] Varicella 2004-07-22 Completed [facility] (varivax)(chicken 00:00:00 [place] [facility] pox) [facility] DTaP, Unspecified 2004-07-22 Completed [facility] Formulation 00:00:00 [facility] IPV 2004-07-22 Completed [facility] 00:00:00 [facility] DTAP 2003-06-04 Completed [facility] 00:00:00 [facility] HIB 3 Dose Schedule 2003-06-04 Completed [facility] 00:00:00 [facility] Hep B, Adol or Pedi 2003-06-04 Completed [facility] Dosage 00:00:00 [facility] MMR 2003-06-04 Completed [facility] 00:00:00 [facility] Polio (IPV/OPV) 2003-06-04 Completed [facility] 00:00:00 [facility] Varicella 2003-06-04 Completed [facility] (varivax)(chicken 00:00:00 [place] [facility] pox[facility] DTAP 2003-06-04 Completed [facility] 00:00:00 [facility] HIB 3 Dose Schedule 2003-06-04 Completed [facility] 00:00:00 [facility] Hep B, Adol or Pedi 2003-06-04 Completed [facility] Dosage 00:00:00 [facility] MMR 2003-06-04 Completed [facility] 00:00:00 [facility] Polio (IPV/OPV) 2003-06-04 Completed [facility] 00:00:00 [facility] Varicella 2003-06-04 Completed [facility] (varivax)(chicken 00:00:00 [place] [facility] pox[facility] DTAP 2003-06-04 Completed [facility] 00:00:00 [facility] HIB 3 Dose Schedule 2003-06-04 Completed [facility] 00:00:00 [facility] Hep B, Adol or Pedi 2003-06-04 Completed [facility] Dosage 00:00:00 [facility] MMR 2003-06-04 Completed [facility] 00:00:00 [facility] Polio (IPV/OPV) 2003-06-04 Completed [facility] 00:00:00 [facility] Varicella 2003-06-04 Completed [facility] (varivax)(chicken 00:00:00 [place] [facility] pox) [facility] DTAP 2003-06-04 Completed [facility] 00:00:00 [facility] HIB 3 Dose Schedule 2003-06-04 Completed [facility] 00:00:00 [facility] Hep B, Adol or Pedi 2003-06-04 Completed [facility] Dosage 00:00:00 [facility] MMR 2003-06-04 Completed [facility] 00:00:00 [facility] Polio (IPV/OPV) 2003-06-04 Completed [facility] 00:00:00 [facility] Varicella 2003-06-04 Completed [facility] (varivax)(chicken 00:00:00 [place] [facility] pox[facility] DTAP 2003-06-04 Completed [facility] 00:00:00 [facility] HIB 3 Dose Schedule 2003-06-04 Completed [facility] 00:00:00 [facility] Hep B, Adol or Pedi 2003-06-04 Completed [facility] Dosage 00:00:00 [facility] MMR 2003-06-04 Completed [facility] 00:00:00 [facility] Polio (IPV/OPV) 2003-06-04 Completed [facility] 00:00:00 [facility] Varicella 2003-06-04 Completed [facility] (varivax)(chicken 00:00:00 [place] [facility] pox) [facility] DTAP 2003-06-04 Completed [facility] 00:00:00 [facility] HIB 3 Dose Schedule 2003-06-04 Completed [facility] 00:00:00 [facility] Hep B, Adol or Pedi 2003-06-04 Completed [facility] Dosage 00:00:00 [facility] MMR 2003-06-04 Completed [facility] 00:00:00 [facility] Polio (IPV/OPV) 2003-06-04 Completed [facility] 00:00:00 [facility] Varicella 2003-06-04 Completed [facility] (varivax)(chicken 00:00:00 [place] [facility] pox) [facility] DTAP 2003-06-04 Completed [facility] 00:00:00 [facility] HIB 3 Dose Schedule 2003-06-04 Completed [facility] 00:00:00 [facility] Hep B, Adol or Pedi 2003-06-04 Completed [facility] Dosage 00:00:00 [facility] MMR 2003-06-04 Completed [facility] 00:00:00 [facility] Polio (IPV/OPV) 2003-06-04 Completed [facility] 00:00:00 [facility] Varicella 2003-06-04 Completed [facility] (varivax)(chicken 00:00:00 [place] [facility] pox) [facility] DTAP 2003-06-04 Completed [facility] 00:00:00 [facility] HIB 3 Dose Schedule 2003-06-04 Completed [facility] 00:00:00 [facility] Hep B, Adol or Pedi 2003-06-04 Completed [facility] Dosage 00:00:00 [facility] MMR 2003-06-04 Completed [facility] 00:00:00 [facility] Polio (IPV/OPV) 2003-06-04 Completed [facility] 00:00:00 [facility] Varicella 2003-06-04 Completed [facility] (varivax)(chicken 00:00:00 [place] [facility] pox) [facility] DTAP 2003-06-04 Completed [facility] 00:00:00 [facility] HIB 3 Dose Schedule 2003-06-04 Completed [facility] 00:00:00 [facility] Hep B, Adol or Pedi 2003-06-04 Completed [facility] Dosage 00:00:00 [facility] MMR 2003-06-04 Completed [facility] 00:00:00 [facility] Polio (IPV/OPV) 2003-06-04 Completed [facility] 00:00:00 [facility] Varicella 2003-06-04 Completed [facility] (varivax)(chicken 00:00:00 [place] [facility] pox) [facility] DTAP 2003-06-04 Completed [facility] 00:00:00 [facility] HIB 3 Dose Schedule 2003-06-04 Completed [facility] 00:00:00 [facility] Hep B, Adol or Pedi 2003-06-04 Completed [facility] Dosage 00:00:00 [facility] MMR 2003-06-04 Completed [facility] 00:00:00 [facility] Polio (IPV/OPV) 2003-06-04 Completed [facility] 00:00:00 [facility] Varicella 2003-06-04 Completed [facility] (varivax)(chicken 00:00:00 [place] [facility] pox) [facility] DTAP 2003-06-04 Completed [facility] 00:00:00 [facility] HIB 3 Dose Schedule 2003-06-04 Completed [facility] 00:00:00 [facility] Hep B, Adol or Pedi 2003-06-04 Completed [facility] Dosage 00:00:00 [facility] MMR 2003-06-04 Completed [facility] 00:00:00 [facility] Polio (IPV/OPV) 2003-06-04 Completed [facility] 00:00:00 [facility] Varicella 2003-06-04 Completed [facility] (varivax)(chicken 00:00:00 [place] [facility] pox) [facility] DTAP 2003-06-04 Completed [facility] 00:00:00 [facility] HIB 3 Dose Schedule 2003-06-04 Completed [facility] 00:00:00 [facility] Hep B, Adol or Pedi 2003-06-04 Completed [facility] Dosage 00:00:00 [facility] MMR 2003-06-04 Completed [facility] 00:00:00 [facility] Polio (IPV/OPV) 2003-06-04 Completed [facility] 00:00:00 [facility] Varicella 2003-06-04 Completed [facility] (varivax)(chicken 00:00:00 [place] [facility] pox) [facility] DTAP 2003-06-04 Completed [facility] 00:00:00 [facility] HIB 3 Dose Schedule 2003-06-04 Completed [facility] 00:00:00 [facility] Hep B, Adol or Pedi 2003-06-04 Completed [facility] Dosage 00:00:00 [facility] MMR 2003-06-04 Completed [facility] 00:00:00 [facility] Polio (IPV/OPV) 2003-06-04 Completed [facility] 00:00:00 [facility] Varicella 2003-06-04 Completed [facility] (varivax)(chicken 00:00:00 [place] [facility] pox) [facility] DTAP 2003-06-04 Completed [facility] 00:00:00 [facility] HIB 3 Dose Schedule 2003-06-04 Completed [facility] 00:00:00 [facility] Hep B, Adol or Pedi 2003-06-04 Completed [facility] Dosage 00:00:00 [facility] MMR 2003-06-04 Completed [facility] 00:00:00 [facility] Polio (IPV/OPV) 2003-06-04 Completed [facility] 00:00:00 [facility] Varicella 2003-06-04 Completed [facility] (varivax)(chicken 00:00:00 [place] [facility] pox) [facility] DTAP 2003-06-04 Completed [facility] 00:00:00 [facility] HIB 3 Dose Schedule 2003-06-04 Completed [facility] 00:00:00 [facility] Hep B, Adol or Pedi 2003-06-04 Completed [facility] Dosage 00:00:00 [facility] MMR 2003-06-04 Completed [facility] 00:00:00 [facility] Polio (IPV/OPV) 2003-06-04 Completed [facility] 00:00:00 [facility] Varicella 2003-06-04 Completed [facility] (varivax)(chicken 00:00:00 [place] [facility] pox) [facility] DTAP 2003-06-04 Completed [facility] 00:00:00 [facility] HIB 3 Dose Schedule 2003-06-04 Completed [facility] 00:00:00 [facility] Hep B, Adol or Pedi 2003-06-04 Completed [facility] Dosage 00:00:00 [facility] MMR 2003-06-04 Completed [facility] 00:00:00 [facility] Polio (IPV/OPV) 2003-06-04 Completed [facility] 00:00:00 [facility] Varicella 2003-06-04 Completed [facility] (varivax)(chicken 00:00:00 [place] [facility] pox) [facility] DTAP 2003-06-04 Completed [facility] 00:00:00 [facility] HIB 3 Dose Schedule 2003-06-04 Completed [facility] 00:00:00 [facility] Hep B, Adol or Pedi 2003-06-04 Completed [facility] Dosage 00:00:00 [facility] MMR 2003-06-04 Completed [facility] 00:00:00 [facility] Polio (IPV/OPV) 2003-06-04 Completed [facility] 00:00:00 [facility] Varicella 2003-06-04 Completed [facility] (varivax)(chicken 00:00:00 [place] [facility] pox) [facility] DTAP 2003-06-04 Completed [facility] 00:00:00 [facility] HIB 3 Dose Schedule 2003-06-04 Completed [facility] 00:00:00 [facility] Hep B, Adol or Pedi 2003-06-04 Completed [facility] Dosage 00:00:00 [facility] MMR 2003-06-04 Completed [facility] 00:00:00 [facility] Polio (IPV/OPV) 2003-06-04 Completed [facility] 00:00:00 [facility] Varicella 2003-06-04 Completed [facility] (varivax)(chicken 00:00:00 [place] [facility] pox) [facility] DTAP 2003-06-04 Completed [facility] 00:00:00 [facility] HIB 3 Dose Schedule 2003-06-04 Completed [facility] 00:00:00 [facility] Hep B, Adol or Pedi 2003-06-04 Completed [facility] Dosage 00:00:00 [facility] MMR 2003-06-04 Completed [facility] 00:00:00 [facility] Polio (IPV/OPV) 2003-06-04 Completed [facility] 00:00:00 [facility] Varicella 2003-06-04 Completed [facility] (varivax)(chicken 00:00:00 [place] [facility] pox) [facility] DTAP 2003-06-04 Completed [facility] 00:00:00 [facility] HIB 3 Dose Schedule 2003-06-04 Completed [facility] 00:00:00 [facility] Hep B, Adol or Pedi 2003-06-04 Completed [facility] Dosage 00:00:00 [facility] MMR 2003-06-04 Completed [facility] 00:00:00 [facility] Polio (IPV/OPV) 2003-06-04 Completed [facility] 00:00:00 [facility] Varicella 2003-06-04 Completed [facility] (varivax)(chicken 00:00:00 [place] [facility]ox) [facility] DTAP 2003-06-04 Completed [facility] 00:00:00 [facility] HIB 3 Dose Schedule 2003-06-04 Completed [facility] 00:00:00 [facility] Hep B, Adol or Pedi 2003-06-04 Completed [facility] Dosage 00:00:00 [facility] MMR 2003-06-04 Completed [facility] 00:00:00 [facility] Polio (IPV/OPV) 2003-06-04 Completed [facility] 00:00:00 [facility] Varicella 2003-06-04 Completed [facility] (varivax)(chicken 00:00:00 [place] [facility] pox) [facility] DTAP 2003-06-04 Completed [facility] 00:00:00 [facility] HIB 3 Dose Schedule 2003-06-04 Completed [facility] 00:00:00 [facility] Hep B, Adol or Pedi 2003-06-04 Completed [facility] Dosage 00:00:00 [facility] MMR 2003-06-04 Completed [facility] 00:00:00 [facility] Polio (IPV/OPV) 2003-06-04 Completed [facility] 00:00:00 [facility] Varicella 2003-06-04 Completed [facility] (varivax)(chicken 00:00:00 [place] [facility] pox) [facility] DTAP 2003-06-04 Completed [facility] 00:00:00 [facility] HIB 3 Dose Schedule 2003-06-04 Completed [facility] 00:00:00 [facility] Hep B, Adol or Pedi 2003-06-04 Completed [facility] Dosage 00:00:00 [facility] MMR 2003-06-04 Completed [facility] 00:00:00 [facility] Polio (IPV/OPV) 2003-06-04 Completed [facility] 00:00:00 [facility] Varicella 2003-06-04 Completed [facility] (varivax)(chicken 00:00:00 [place] [facility]ox) [facility] DTAP 2003-06-04 Completed [facility] 00:00:00 [facility] HIB 3 Dose Schedule 2003-06-04 Completed [facility] 00:00:00 [facility] Hep B, Adol or Pedi 2003-06-04 Completed [facility] Dosage 00:00:00 [facility] MMR 2003-06-04 Completed [facility] 00:00:00 [facility] Polio (IPV/OPV) 2003-06-04 Completed [facility] 00:00:00 [facility] Varicella 2003-06-04 Completed [facility] (varivax)(chicken 00:00:00 [place] [facility] pox) [facility] DTAP 2003-06-04 Completed [facility] 00:00:00 [facility] HIB 3 Dose Schedule 2003-06-04 Completed [facility] 00:00:00 [facility] Hep B, Adol or Pedi 2003-06-04 Completed [facility] Dosage 00:00:00 [facility] MMR 2003-06-04 Completed [facility] 00:00:00 [facility] Polio (IPV/OPV) 2003-06-04 Completed [facility] 00:00:00 [facility] Varicella 2003-06-04 Completed [facility] (varivax)(chicken 00:00:00 [place] [facility] DTAP 2003-06-04 Completed [facility] 00:00:00 [facility] HIB 3 Dose Schedule 2003-06-04 Completed [facility] 00:00:00 [facility] Hep B, Adol or Pedi 2003-06-04 Completed [facility] Dosage 00:00:00 [facility] MMR 2003-06-04 Completed [facility] 00:00:00 [facility] Polio (IPV/OPV) 2003-06-04 Completed [facility] 00:00:00 [facility] Varicella 2003-06-04 Completed [facility] (varivax)(chicken 00:00:00 [place] [facility] DTAP 2003-06-04 Completed [facility] 00:00:00 [facility] HIB 3 Dose Schedule 2003-06-04 Completed [facility] 00:00:00 [facility] Hep B, Adol or Pedi 2003-06-04 Completed [facility] Dosage 00:00:00 [facility] MMR 2003-06-04 Completed [facility] 00:00:00 [facility] Polio (IPV/OPV) 2003-06-04 Completed [facility] 00:00:00 [facility] Varicella 2003-06-04 Completed [facility] (varivax)(chicken 00:00:00 [place] [facility] DTAP 2003-06-04 Completed [facility] 00:00:00 [facility] HIB 3 Dose Schedule 2003-06-04 Completed [facility] 00:00:00 [facility] Hep B, Adol or Pedi 2003-06-04 Completed [facility] Dosage 00:00:00 [facility] MMR 2003-06-04 Completed [facility] 00:00:00 [facility] Polio (IPV/OPV) 2003-06-04 Completed [facility] 00:00:00 [facility] Varicella 2003-06-04 Completed [facility] (varivax)(chicken 00:00:00 [place] [facility] DTAP 2003-06-04 Completed [facility] 00:00:00 [facility] HIB 3 Dose Schedule 2003-06-04 Completed [facility] 00:00:00 [facility] Hep B, Adol or Pedi 2003-06-04 Completed [facility] Dosage 00:00:00 [facility] MMR 2003-06-04 Completed [facility] 00:00:00 [facility] Polio (IPV/OPV) 2003-06-04 Completed [facility] 00:00:00 [facility] Varicella 2003-06-04 Completed [facility] (varivax)(chicken 00:00:00 [place] [facility] DTAP 2003-06-04 Completed [facility] 00:00:00 [facility] HIB 3 Dose Schedule 2003-06-04 Completed [facility] 00:00:00 [facility] Hep B, Adol or Pedi 2003-06-04 Completed [facility] Dosage 00:00:00 [facility] MMR 2003-06-04 Completed [facility] 00:00:00 [facility] Polio (IPV/OPV) 2003-06-04 Completed [facility] 00:00:00 [facility] Varicella 2003-06-04 Completed [facility] (varivax)(chicken 00:00:00 [place] [facility] DTAP 2003-06-04 Completed [facility] 00:00:00 [facility] HIB 3 Dose Schedule 2003-06-04 Completed [facility] 00:00:00 [facility] Hep B, Adol or Pedi 2003-06-04 Completed [facility] Dosage 00:00:00 [facility] MMR 2003-06-04 Completed [facility] 00:00:00 [facility] Polio (IPV/OPV) 2003-06-04 Completed [facility] 00:00:00 [facility] Varicella 2003-06-04 Completed [facility] (varivax)(chicken 00:00:00 [place] [facility] DTAP 2003-06-04 Completed [facility] 00:00:00 [facility] HIB 3 Dose Schedule 2003-06-04 Completed [facility] 00:00:00 [facility] Hep B, Adol or Pedi 2003-06-04 Completed [facility] Dosage 00:00:00 [facility] MMR 2003-06-04 Completed [facility] 00:00:00 [facility] Polio (IPV/OPV) 2003-06-04 Completed [facility] 00:00:00 [facility] Varicella 2003-06-04 Completed [facility] (varivax)(chicken 00:00:00 [place] [facility] DTAP 2003-06-04 Completed [facility] 00:00:00 [facility] HIB 3 Dose Schedule 2003-06-04 Completed [facility] 00:00:00 [facility] Hep B, Adol or Pedi 2003-06-04 Completed [facility] Dosage 00:00:00 [facility] MMR 2003-06-04 Completed [facility] 00:00:00 [facility] Polio (IPV/OPV) 2003-06-04 Completed [facility] 00:00:00 [facility] Varicella 2003-06-04 Completed [facility] (varivax)(chicken 00:00:00 [place] [facility] DTAP 2003-06-04 Completed [facility] 00:00:00 [facility] HIB 3 Dose Schedule 2003-06-04 Completed [facility] 00:00:00 [facility] Hep B, Adol or Pedi 2003-06-04 Completed [facility] Dosage 00:00:00 [facility] MMR 2003-06-04 Completed [facility] 00:00:00 [facility] Polio (IPV/OPV) 2003-06-04 Completed [facility] 00:00:00 [facility] Varicella 2003-06-04 Completed [facility] (varivax)(chicken 00:00:00 [place] [facility] DTAP 2003-06-04 Completed [facility] 00:00:00 [facility] HIB 3 Dose Schedule 2003-06-04 Completed [facility] 00:00:00 [facility] Hep B, Adol or Pedi 2003-06-04 Completed [facility] Dosage 00:00:00 [facility] MMR 2003-06-04 Completed [facility] 00:00:00 [facility] Polio (IPV/OPV) 2003-06-04 Completed [facility] 00:00:00 [facility] Varicella 2003-06-04 Completed [facility] (varivax)(chicken 00:00:00 [place] [facility] DTAP 2003-06-04 Completed [facility] 00:00:00 [facility] HIB 3 Dose Schedule 2003-06-04 Completed [facility] 00:00:00 [facility] Hep B, Adol or Pedi 2003-06-04 Completed [facility] Dosage 00:00:00 [facility] MMR 2003-06-04 Completed [facility] 00:00:00 [facility] Polio (IPV/OPV) 2003-06-04 Completed [facility] 00:00:00 [facility] Varicella 2003-06-04 Completed [facility] (varivax)(chicken 00:00:00 [place] [facility] DTAP 2003-06-04 Completed [facility] 00:00:00 [facility] HIB 3 Dose Schedule 2003-06-04 Completed [facility] 00:00:00 [facility] Hep B, Adol or Pedi 2003-06-04 Completed [facility] Dosage 00:00:00 [facility] MMR 2003-06-04 Completed [facility] 00:00:00 [facility] Polio (IPV/OPV) 2003-06-04 Completed [facility] 00:00:00 [facility] Varicella 2003-06-04 Completed [facility] (varivax)(chicken 00:00:00 [place] [facility] DTAP 2003-06-04 Completed [facility] 00:00:00 [facility] HIB 3 Dose Schedule 2003-06-04 Completed [facility] 00:00:00 [facility] Hep B, Adol or Pedi 2003-06-04 Completed [facility] Dosage 00:00:00 [facility] MMR 2003-06-04 Completed [facility] 00:00:00 [facility] Polio (IPV/OPV) 2003-06-04 Completed [facility] 00:00:00 [facility] Varicella 2003-06-04 Completed [facility] (varivax)(chicken 00:00:00 [place] [facility] DTaP, Unspecified 2003-06-04 Completed [facility] Formulation 00:00:00 [facility] HIB 4 Dose Schedule 2003-06-04 Completed [facility] 00:00:00 [facility] IPV 2003-06-04 Completed [facility] 00:00:00 [facility] DTAP 2003-06-04 Completed [facility] 00:00:00 [facility] HIB 3 Dose Schedule 2003-06-04 Completed [facility] 00:00:00 [facility] Hep B, Adol or Pedi 2003-06-04 Completed [facility] Dosage 00:00:00 [facility] MMR 2003-06-04 Completed [facility] 00:00:00 [facility] Polio (IPV/OPV) 2003-06-04 Completed [facility] 00:00:00 [facility] Varicella 2003-06-04 Completed [facility] (varivax)(chicken 00:00:00 [place] [facility] DTaP, Unspecified 2003-06-04 Completed [facility] Formulation 00:00:00 [facility] HIB 4 Dose Schedule 2003-06-04 Completed [facility] 00:00:00 [facility] IPV 2003-06-04 Completed [facility] 00:00:00 [facility] DTAP 2003-06-04 Completed [facility] 00:00:00 [facility] HIB 3 Dose Schedule 2003-06-04 Completed [facility] 00:00:00 [facility] Hep B, Adol or Pedi 2003-06-04 Completed [facility] Dosage 00:00:00 [facility] MMR 2003-06-04 Completed [facility] 00:00:00 [facility] Polio (IPV/OPV) 2003-06-04 Completed [facility] 00:00:00 [facility] Varicella 2003-06-04 Completed [facility] (varivax)(chicken 00:00:00 [place] [facility] DTaP, Unspecified 2003-06-04 Completed [facility] Formulation 00:00:00 [facility] HIB 4 Dose Schedule 2003-06-04 Completed [facility] 00:00:00 [facility] IPV 2003-06-04 Completed [facility] 00:00:00 [facility] DTAP 2003-06-04 Completed [facility] 00:00:00 [facility] HIB 3 Dose Schedule 2003-06-04 Completed [facility] 00:00:00 [facility] Hep B, Adol or Pedi 2003-06-04 Completed [facility] Dosage 00:00:00 [facility] MMR 2003-06-04 Completed [facility] 00:00:00 [facility] Polio (IPV/OPV) 2003-06-04 Completed [facility] 00:00:00 [facility] Varicella 2003-06-04 Completed [facility] (varivax)(chicken 00:00:00 [place] [facility] DTaP, Unspecified 2003-06-04 Completed [facility] Formulation 00:00:00 [facility] HIB 4 Dose Schedule 2003-06-04 Completed [facility] 00:00:00 [facility] IPV 2003-06-04 Completed [facility] 00:00:00 [facility] DTAP 2003-06-04 Completed [facility] 00:00:00 [facility] HIB 3 Dose Schedule 2003-06-04 Completed [facility] 00:00:00 [facility] Hep B, Adol or Pedi 2003-06-04 Completed [facility] Dosage 00:00:00 [facility] MMR 2003-06-04 Completed [facility] 00:00:00 [facility] Polio (IPV/OPV) 2003-06-04 Completed [facility] 00:00:00 [facility] Varicella 2003-06-04 Completed [facility] (varivax)(chicken 00:00:00 [facility] edical pox) Branch DTaP, Unspecified 2003-06-04 Completed [facility] Formulation 00:00:00 [facility] HIB 4 Dose Schedule 2003-06-04 Completed [facility] 00:00:00 [facility] IPV 2003-06-04 Completed [facility] 00:00:00 [facility] DTAP 2003-06-04 Completed [facility] 00:00:00 [facility] HIB 3 Dose Schedule 2003-06-04 Completed [facility] 00:00:00 [facility] Hep B, Adol or Pedi 2003-06-04 Completed [facility] Dosage 00:00:00 [facility] MMR 2003-06-04 Completed [facility] 00:00:00 [facility] Polio (IPV/OPV) 2003-06-04 Completed [facility] 00:00:00 [facility] Varicella 2003-06-04 Completed [facility] (varivax)(chicken 00:00:00 [place] [facility] DTaP, Unspecified 2003-06-04 Completed [facility] Formulation 00:00:00 [facility] HIB 4 Dose Schedule 2003-06-04 Completed [facility] 00:00:00 [facility] IPV 2003-06-04 Completed [facility] 00:00:00 [facility] DTAP 2003-06-04 Completed [facility] 00:00:00 [facility] HIB 3 Dose Schedule 2003-06-04 Completed [facility] 00:00:00 [facility] Hep B, Adol or Pedi 2003-06-04 Completed [facility] Dosage 00:00:00 [facility] MMR 2003-06-04 Completed [facility] 00:00:00 [facility] Polio (IPV/OPV) 2003-06-04 Completed [facility] 00:00:00 [facility] Varicella 2003-06-04 Completed [facility] (varivax)(chicken 00:00:00 [place] [facility] DTaP, Unspecified 2003-06-04 Completed [facility] Formulation 00:00:00 [facility] HIB 4 Dose Schedule 2003-06-04 Completed [facility] 00:00:00 [facility] IPV 2003-06-04 Completed [facility] 00:00:00 [facility] DTAP 2003-06-04 Completed [facility] 00:00:00 [facility] HIB 3 Dose Schedule 2003-06-04 Completed [facility] 00:00:00 [facility] Hep B, Adol or Pedi 2003-06-04 Completed [facility] Dosage 00:00:00 [facility] MMR 2003-06-04 Completed [facility] 00:00:00 [facility] Polio (IPV/OPV) 2003-06-04 Completed [facility] 00:00:00 [facility] Varicella 2003-06-04 Completed [facility] (varivax)(chicken 00:00:00 [place] [facility] DTaP, Unspecified 2003-06-04 Completed [facility] Formulation 00:00:00 [facility] HIB 4 Dose Schedule 2003-06-04 Completed [facility] 00:00:00 [facility] IPV 2003-06-04 Completed [facility] 00:00:00 [facility] DTAP 2003-06-04 Completed [facility] 00:00:00 [facility] HIB 3 Dose Schedule 2003-06-04 Completed [facility] 00:00:00 [facility] Hep B, Adol or Pedi 2003-06-04 Completed [facility] Dosage 00:00:00 [facility] MMR 2003-06-04 Completed [facility] 00:00:00 [facility] Polio (IPV/OPV) 2003-06-04 Completed [facility] 00:00:00 [facility] Varicella 2003-06-04 Completed [facility] (varivax)(chicken 00:00:00 [place] [facility] DTaP, Unspecified 2003-06-04 Completed [facility] Formulation 00:00:00 [facility] HIB 4 Dose Schedule 2003-06-04 Completed [facility] 00:00:00 [facility] IPV 2003-06-04 Completed [facility] 00:00:00 [facility] DTAP 2003-06-04 Completed [facility] 00:00:00 [facility] HIB 3 Dose Schedule 2003-06-04 Completed [facility] 00:00:00 [facility] Hep B, Adol or Pedi 2003-06-04 Completed [facility] Dosage 00:00:00 [facility] MMR 2003-06-04 Completed [facility] 00:00:00 [facility] Polio (IPV/OPV) 2003-06-04 Completed [facility] 00:00:00 [facility] Varicella 2003-06-04 Completed [facility] (varivax)(chicken 00:00:00 [facility] edical pox) Branch DTaP, Unspecified 2003-06-04 Completed [facility] Formulation 00:00:00 [facility] HIB 4 Dose Schedule 2003-06-04 Completed [facility] 00:00:00 [facility] IPV 2003-06-04 Completed [facility] 00:00:00 [facility] DTAP 2003-06-04 Completed [facility] 00:00:00 [facility] HIB 3 Dose Schedule 2003-06-04 Completed [facility] 00:00:00 [facility] Hep B, Adol or Pedi 2003-06-04 Completed [facility] Dosage 00:00:00 [facility] MMR 2003-06-04 Completed [facility] 00:00:00 [facility] Polio (IPV/OPV) 2003-06-04 Completed [facility] 00:00:00 [facility] Varicella 2003-06-04 Completed [facility] (varivax)(chicken 00:00:00 [facility] edical pox) Branch DTaP, Unspecified 2003-06-04 Completed [facility] Formulation 00:00:00 [facility] HIB 4 Dose Schedule 2003-06-04 Completed [facility] 00:00:00 [facility] IPV 2003-06-04 Completed [facility] 00:00:00 [facility] DTAP 2003-06-04 Completed [facility] 00:00:00 [facility] HIB 3 Dose Schedule 2003-06-04 Completed [facility] 00:00:00 [facility] Hep B, Adol or Pedi 2003-06-04 Completed [facility] Dosage 00:00:00 [facility] MMR 2003-06-04 Completed [facility] 00:00:00 [facility] Polio (IPV/OPV) 2003-06-04 Completed [facility] 00:00:00 [facility] Varicella 2003-06-04 Completed [facility] (varivax)(chicken 00:00:00 [place] [facility] DTaP, Unspecified 2003-06-04 Completed [facility] Formulation 00:00:00 [facility] HIB 4 Dose Schedule 2003-06-04 Completed [facility] 00:00:00 [facility] IPV 2003-06-04 Completed [facility] 00:00:00 [facility] DTAP 2003-06-04 Completed [facility] 00:00:00 [facility] HIB 3 Dose Schedule 2003-06-04 Completed [facility] 00:00:00 [facility] Hep B, Adol or Pedi 2003-06-04 Completed [facility] of Dosage 00:00:00 [facility] MMR 2003-06-04 Completed [facility] 00:00:00 [facility] Polio (IPV/OPV) 2003-06-04 Completed [facility] 00:00:00 [facility] Varicella 2003-06-04 Completed [facility] (varivax)(chicken 00:00:00 [place] [facility] DTaP, Unspecified 2003-06-04 Completed [facility] Formulation 00:00:00 [facility] HIB 4 Dose Schedule 2003-06-04 Completed [facility] 00:00:00 [facility] IPV 2003-06-04 Completed [facility] 00:00:00 [facility] DTAP 2003-06-04 Completed [facility] 00:00:00 [facility] HIB 3 Dose Schedule 2003-06-04 Completed [facility] 00:00:00 [facility] Hep B, Adol or Pedi 2003-06-04 Completed [facility] of Dosage 00:00:00 [facility] MMR 2003-06-04 Completed [facility] 00:00:00 [facility] Polio (IPV/OPV) 2003-06-04 Completed [facility] 00:00:00 [facility] Varicella 2003-06-04 Completed [facility] (varivax)(chicken 00:00:00 [facility] edical pox) Branch DTaP, Unspecified 2003-06-04 Completed [facility] Formulation 00:00:00 [facility] HIB 4 Dose Schedule 2003-06-04 Completed [facility] 00:00:00 [facility] IPV 2003-06-04 Completed [facility] 00:00:00 [facility] DTAP 2003-06-04 Completed [facility] 00:00:00 [facility] HIB 3 Dose Schedule 2003-06-04 Completed [facility] 00:00:00 [facility] Hep B, Adol or Pedi 2003-06-04 Completed [facility] of Dosage 00:00:00 [facility] MMR 2003-06-04 Completed [facility] 00:00:00 [facility] Polio (IPV/OPV) 2003-06-04 Completed [facility] 00:00:00 [facility] Varicella 2003-06-04 Completed [facility] (varivax)(chicken 00:00:00 [facility] edical pox) Branch DTaP, Unspecified 2003-06-04 Completed [facility] Formulation 00:00:00 [facility] HIB 4 Dose Schedule 2003-06-04 Completed [facility] 00:00:00 [facility] IPV 2003-06-04 Completed [facility] 00:00:00 [facility] DTAP 2003-06-04 Completed [facility] 00:00:00 [facility] HIB 3 Dose Schedule 2003-06-04 Completed [facility] 00:00:00 [facility] Hep B, Adol or Pedi 2003-06-04 Completed [facility] of Dosage 00:00:00 [facility] MMR 2003-06-04 Completed [facility] 00:00:00 [facility] Polio (IPV/OPV) 2003-06-04 Completed [facility] 00:00:00 [facility] Varicella 2003-06-04 Completed [facility] (varivax)(chicken 00:00:00 [place] [facility] DTaP, Unspecified 2003-06-04 Completed [facility] Formulation 00:00:00 [facility] HIB 4 Dose Schedule 2003-06-04 Completed [facility] 00:00:00 [facility] IPV 2003-06-04 Completed [facility] 00:00:00 [facility] DTAP 2003-06-04 Completed [facility] 00:00:00 [facility] HIB 3 Dose Schedule 2003-06-04 Completed [facility] 00:00:00 [facility] Hep B, Adol or Pedi 2003-06-04 Completed [facility] of Dosage 00:00:00 [facility] MMR 2003-06-04 Completed [facility] 00:00:00 [facility] Polio (IPV/OPV) 2003-06-04 Completed [facility] 00:00:00 [facility] Varicella 2003-06-04 Completed [facility] (varivax)(chicken 00:00:00 [place] [facility] DTaP, Unspecified 2003-06-04 Completed [facility] Formulation 00:00:00 [facility] HIB 4 Dose Schedule 2003-06-04 Completed [facility] 00:00:00 [facility] IPV 2003-06-04 Completed [facility] 00:00:00 [facility] DTAP 2003-06-04 Completed [facility] 00:00:00 [facility] HIB 3 Dose Schedule 2003-06-04 Completed [facility] 00:00:00 [facility] Hep B, Adol or Pedi 2003-06-04 Completed [facility] of Dosage 00:00:00 [facility] MMR 2003-06-04 Completed [facility] 00:00:00 [facility] Polio (IPV/OPV) 2003-06-04 Completed [facility] 00:00:00 [facility] Varicella 2003-06-04 Completed [facility] (varivax)(chicken 00:00:00 [facility] edical pox) Branch DTaP, Unspecified 2003-06-04 Completed [facility] Formulation 00:00:00 [facility] HIB 4 Dose Schedule 2003-06-04 Completed [facility] 00:00:00 [facility] IPV 2003-06-04 Completed [facility] 00:00:00 [facility] DTAP 2003-06-04 Completed [facility] 00:00:00 [facility] HIB 3 Dose Schedule 2003-06-04 Completed [facility] 00:00:00 [facility] Hep B, Adol or Pedi 2003-06-04 Completed [facility] of Dosage 00:00:00 [facility] MMR 2003-06-04 Completed [facility] 00:00:00 [facility] Polio (IPV/OPV) 2003-06-04 Completed [facility] 00:00:00 [facility] Varicella 2003-06-04 Completed [facility] (varivax)(chicken 00:00:00 [facility] edical pox) Branch DTaP, Unspecified 2003-06-04 Completed [facility] Formulation 00:00:00 [facility] HIB 4 Dose Schedule 2003-06-04 Completed [facility] 00:00:00 [facility] IPV 2003-06-04 Completed [facility] 00:00:00 [facility] DTAP 2003-06-04 Completed [facility] 00:00:00 [facility] HIB 3 Dose Schedule 2003-06-04 Completed [facility] 00:00:00 [facility] Hep B, Adol or Pedi 2003-06-04 Completed [facility] of Dosage 00:00:00 [facility] MMR 2003-06-04 Completed [facility] 00:00:00 [facility] Polio (IPV/OPV) 2003-06-04 Completed [facility] 00:00:00 [facility] Varicella 2003-06-04 Completed [facility] (varivax)(chicken 00:00:00 [place] [facility] DTaP, Unspecified 2003-06-04 Completed [facility] Formulation 00:00:00 [facility] HIB 4 Dose Schedule 2003-06-04 Completed [facility] 00:00:00 [facility] IPV 2003-06-04 Completed [facility] 00:00:00 [facility] DTAP 2003-06-04 Completed [facility] 00:00:00 [facility] HIB 3 Dose Schedule 2003-06-04 Completed [facility] 00:00:00 [facility] Hep B, Adol or Pedi 2003-06-04 Completed [facility] of Dosage 00:00:00 [facility] MMR 2003-06-04 Completed [facility] 00:00:00 [facility] Polio (IPV/OPV) 2003-06-04 Completed [facility] 00:00:00 [facility] Varicella 2003-06-04 Completed [facility] (varivax)(chicken 00:00:00 [place] [facility] DTaP, Unspecified 2003-06-04 Completed [facility] Formulation 00:00:00 [facility] HIB 4 Dose Schedule 2003-06-04 Completed [facility] 00:00:00 [facility] IPV 2003-06-04 Completed [facility] 00:00:00 [facility] DTAP 2003-06-04 Completed [facility] 00:00:00 [facility] HIB 3 Dose Schedule 2003-06-04 Completed [facility] 00:00:00 [facility] Hep B, Adol or Pedi 2003-06-04 Completed [facility] of Dosage 00:00:00 [facility] MMR 2003-06-04 Completed [facility] 00:00:00 [facility] Polio (IPV/OPV) 2003-06-04 Completed [facility] 00:00:00 [facility] Varicella 2003-06-04 Completed [facility] (varivax)(chicken 00:00:00 [place] [facility] DTaP, Unspecified 2003-06-04 Completed [facility] Formulation 00:00:00 [facility] HIB 4 Dose Schedule 2003-06-04 Completed [facility] 00:00:00 [facility] IPV 2003-06-04 Completed [facility] 00:00:00 [facility] DTAP 2003-06-04 Completed [facility] 00:00:00 [facility] HIB 3 Dose Schedule 2003-06-04 Completed [facility] 00:00:00 [facility] Hep B, Adol or Pedi 2003-06-04 Completed [facility] of Dosage 00:00:00 [facility] MMR 2003-06-04 Completed [facility] 00:00:00 [facility] Polio (IPV/OPV) 2003-06-04 Completed [facility] 00:00:00 [facility] Varicella 2003-06-04 Completed [facility] (varivax)(chicken 00:00:00 [place] [facility] DTaP, Unspecified 2003-06-04 Completed [facility] Formulation 00:00:00 [facility] HIB 4 Dose Schedule 2003-06-04 Completed [facility] 00:00:00 [facility] IPV 2003-06-04 Completed [facility] 00:00:00 [facility] DTAP 2003-06-04 Completed [facility] 00:00:00 [facility] HIB 3 Dose Schedule 2003-06-04 Completed [facility] 00:00:00 [facility] Hep B, Adol or Pedi 2003-06-04 Completed [facility] of Dosage 00:00:00 [facility] MMR 2003-06-04 Completed [facility] 00:00:00 [facility] Polio (IPV/OPV) 2003-06-04 Completed [facility] 00:00:00 [facility] Varicella 2003-06-04 Completed [facility] (varivax)(chicken 00:00:00 [place] [facility] DTaP, Unspecified 2003-06-04 Completed [facility] Formulation 00:00:00 [facility] HIB 4 Dose Schedule 2003-06-04 Completed [facility] 00:00:00 [facility] IPV 2003-06-04 Completed [facility] 00:00:00 [facility] DTAP 2003-06-04 Completed [facility] 00:00:00 [facility] HIB 3 Dose Schedule 2003-06-04 Completed [facility] 00:00:00 [facility] Hep B, Adol or Pedi 2003-06-04 Completed [facility] of Dosage 00:00:00 [facility] MMR 2003-06-04 Completed [facility] 00:00:00 [facility] Polio (IPV/OPV) 2003-06-04 Completed [facility] 00:00:00 [facility] Varicella 2003-06-04 Completed [facility] (varivax)(chicken 00:00:00 [place] [facility] DTaP, Unspecified 2003-06-04 Completed [facility] Formulation 00:00:00 [facility] HIB 4 Dose Schedule 2003-06-04 Completed [facility] 00:00:00 [facility] IPV 2003-06-04 Completed [facility] 00:00:00 [facility] DTAP 2003-06-04 Completed [facility] 00:00:00 [facility] HIB 3 Dose Schedule 2003-06-04 Completed [facility] 00:00:00 [facility] Hep B, Adol or Pedi 2003-06-04 Completed [facility] of Dosage 00:00:00 [facility] MMR 2003-06-04 Completed [facility] 00:00:00 [facility] Polio (IPV/OPV) 2003-06-04 Completed [facility] 00:00:00 [facility] Varicella 2003-06-04 Completed [facility] (varivax)(chicken 00:00:00 [facility] edical pox) Branch DTaP, Unspecified 2003-06-04 Completed [facility] Formulation 00:00:00 [facility] HIB 4 Dose Schedule 2003-06-04 Completed [facility] of 00:00:00 [facility] IPV 2003-06-04 Completed [facility] 00:00:00 [facility] Vital Signs Vital Name Observation Time Observation Value Comments Source Systolic blood 2022-08-12 15:38:00 123 mm[Hg] [facility] pressure [facility] Diastolic blood 2022-08-12 15:38:00 81 mm[Hg] [facility] pressure [facility] Heart rate 2022-08-12 15:38:00 92 /min [facility] Body temperature 2022-08-12 15:38:00 35.83 Nabila [facility] Respiratory rate 2022-08-12 15:38:00 18 /min [facility] Body height 2022-08-12 15:38:00 167.6 cm [facility] Body weight 2022-08-12 15:38:00 80.377 kg [facility] BMI 2022-08-12 15:38:00 28.60 kg/m2 [facility] Systolic blood 2022-08-01 15:20:00 134 mm[Hg] Univer [facility] of pressure [facility] Diastolic blood 2022-08-01 15:20:00 90 mm[Hg] Unive rsity of pressure [facility] Heart rate 2022-08-01 14:55:00 91 /min [facility] Body temperature 2022-08-01 14:55:00 36.5 Nabila [facility] Respiratory rate 2022-08-01 14:55:00 17 /min [facility] Body height 2022-08-01 14:55:00 167.6 cm [facility] Body weight 2022-08-01 14:55:00 81.874 kg [facility] BMI 2022-08-01 14:55:00 29.13 kg/m2 [facility] Systolic blood 2022-07-29 16:00:00 131 mm[Hg] [facility] Diastolic blood 2022-07-29 16:00:00 77 mm[Hg] [facility] Respiratory rate 2022-07-29 15:56:00 18 /min [facility] Heart rate 2022-07-29 12:15:00 112 /min [facility] Oxygen saturation in 2022-07-29 12:15:00 96 /min [facility] Arterial blood by [employer] Pulse oximetry [facility] Body temperature 2022-07-29 10:00:00 36.89 Nabila [facility] Body height 2022-07-29 03:10:00 167.6 cm [facility] Body weight 2022-07-29 03:10:00 83.643 kg [facility] BMI 2022-07-29 03:10:00 29.76 kg/m2 [facility] Systolic blood 2022-07-25 13:45:00 140 mm[Hg] [facility] Diastolic blood 2022-07-25 13:45:00 97 mm[Hg] [facility] Heart rate 2022-07-25 12:15:00 92 /min [facility] Body temperature 2022-07-25 12:15:00 36.67 Nabila [facility] Respiratory rate 2022-07-25 12:15:00 18 /min [facility] Oxygen saturation in 2022-07-25 12:15:00 100 /min [facility] Arterial blood by [employer] [facility] Body height 2022-07-24 14:30:00 167.6 cm [facility] Systolic blood 2022-07-23 18:30:00 130 mm[Hg] [facility] Diastolic blood 2022-07-23 18:30:00 84 mm[Hg] [facility] Heart rate 2022-07-23 18:30:00 115 /min [facility] Body temperature 2022-07-23 18:30:00 36.94 Nabila [facility] Respiratory rate 2022-07-23 18:30:00 18 /min [facility] Oxygen saturation in 2022-07-23 18:30:00 99 /min [facility] Arterial blood by [facility] Pulse oximetry Branch Body height 2022-07-21 15:36:00 167.6 cm [facility] Body weight 2022-07-21 15:36:00 89.359 kg [facility] BMI 2022-07-21 15:36:00 31.80 kg/m2 [facility] Systolic blood 2022-07-21 18:00:00 131 mm[Hg] [facility] Diastolic blood 2022-07-21 18:00:00 84 mm[Hg] [facility] Heart rate 2022-07-21 18:00:00 104 /min [facility] Body temperature 2022-07-21 18:00:00 36.56 Nabila [facility] Respiratory rate 2022-07-21 18:00:00 18 /min [facility] Oxygen saturation in 2022-07-21 18:00:00 100 /min [facility] Arterial blood by [facility] Pulse oximetry Branch Body height 2022-07-21 15:36:00 167.6 cm [facility] Body weight 2022-07-21 15:36:00 89.359 kg [facility] BMI 2022-07-21 15:36:00 31.80 kg/m2 [facility] Systolic blood 2022-07-17 17:09:00 103 mm[Hg] [facility] Diastolic blood 2022-07-17 17:09:00 51 mm[Hg] [facility] Heart rate 2022-07-17 17:09:00 82 /min [facility] Body temperature 2022-07-17 17:09:00 36.56 Nabila [facility] Respiratory rate 2022-07-17 17:09:00 16 /min [facility] Oxygen saturation in 2022-07-17 17:09:00 99 /min [facility] Arterial blood by [facility] Pulse oximetry Branch Body height 2022-07-17 15:58:00 167.6 cm 5' 6" [facility] Body weight 2022-07-17 15:58:00 87.816 kg 193.6lb [facility] BMI 2022-07-17 15:58:00 31.25 kg/m2 [facility] Systolic blood 2022-07-11 06:00:00 121 mm[Hg] [facility] Diastolic blood 2022-07-11 06:00:00 68 mm[Hg] [facility] Heart rate 2022-07-11 06:00:00 100 /min [facility] Oxygen saturation in 2022-07-11 06:00:00 99 /min [facility] Arterial blood by [facility] Pulse oximetry Branch Body temperature 2022-07-11 04:00:00 36.78 Nabila [facility] Respiratory rate 2022-07-11 04:00:00 18 /min [facility] Body height 2022-07-11 04:00:00 167.6 cm [facility] Body weight 2022-07-11 04:00:00 89.313 kg [facility] BMI 2022-07-11 04:00:00 31.78 kg/m2 [facility] Systolic blood 2022-07-08 19:21:00 133 mm[Hg] [facility] Diastolic blood 2022-07-08 19:21:00 79 mm[Hg] [facility] Heart rate 2022-07-08 19:21:00 94 /min [facility] Body temperature 2022-07-08 19:21:00 36.22 Nabila [facility] Respiratory rate 2022-07-08 19:21:00 18 /min [facility] Body height 2022-07-08 19:21:00 167.6 cm [facility] Body weight 2022-07-08 19:21:00 86.909 kg [facility] BMI 2022-07-08 19:21:00 30.93 kg/m2 [facility] Heart rate 2022-07-06 09:15:00 96 /min [facility] Oxygen saturation in 2022-07-06 09:15:00 99 /min University Arterial blood by [facility] Pulse oximetry Branch Systolic blood 2022-07-06 05:20:00 121 mm[Hg] [facility] Diastolic blood 2022-07-06 05:20:00 70 mm[Hg] [facility]ive rsity of pressure [facility] Body temperature 2022-07-06 05:20:00 37.06 Nabila [facility] Body height 2022-07-06 05:20:00 167.6 cm [facility] Body weight 2022-07-06 05:20:00 86.637 kg [facility] BMI 2022-07-06 05:20:00 30.83 kg/m2 [facility] Respiratory rate 2022-07-06 05:01:00 16 /min [facility] ersity of [facility] Systolic blood 2022-06-23 19:46:00 135 mm[Hg] [facility] Diastolic blood 2022-06-23 19:46:00 85 mm[Hg] [facility] Heart rate 2022-06-23 19:46:00 102 /min [facility] Body temperature 2022-06-23 19:46:00 36.11 Nabila [facility] Respiratory rate 2022-06-23 19:46:00 18 /min [facility] Body height 2022-06-23 19:46:00 167.6 cm [facility] Body weight 2022-06-23 19:46:00 85.004 kg [facility] BMI 2022-06-23 19:46:00 30.25 kg/m2 [facility] Systolic blood 2022-06-09 18:04:00 110 mm[Hg] [facility] Diastolic blood 2022-06-09 18:04:00 60 mm[Hg] [facility] Heart rate 2022-06-09 17:59:00 112 /min [facility] Body temperature 2022-06-09 17:57:00 36.28 Nabila [facility] Respiratory rate 2022-06-09 17:57:00 18 /min [facility] Body height 2022-06-09 17:57:00 170.2 cm [facility] Body weight 2022-06-09 17:57:00 85.911 kg [facility] BMI 2022-06-09 17:57:00 29.66 kg/m2 [facility] Body temperature 2022-06-02 15:34:00 36.72 Nabila [facility] Body weight 2022-06-02 15:34:00 85.73 kg [facility] BMI 2022-06-02 15:34:00 30.51 kg/m2 [facility] Systolic blood 2022-05-26 15:34:00 111 mm[Hg] [facility] Diastolic blood 2022-05-26 15:34:00 71 mm[Hg] [facility] Heart rate 2022-05-26 15:34:00 87 /min [facility] Body temperature 2022-05-26 15:34:00 36.33 Nabila [facility] Respiratory rate 2022-05-26 15:34:00 18 /min [facility] Body height 2022-05-26 15:34:00 167.6 cm [facility] Body weight 2022-05-26 15:34:00 85.73 kg [facility] BMI 2022-05-26 15:34:00 30.51 kg/m2 [facility] Body temperature 2022-05-19 15:46:00 36.17 Nabila [facility] Body weight 2022-05-19 15:46:00 85.095 kg [facility] BMI 2022-05-19 15:46:00 30.28 kg/m2 [facility] Systolic blood 2022-05-12 20:15:00 122 mm[Hg] [facility] Diastolic blood 2022-05-12 20:15:00 67 mm[Hg] [facility] Heart rate 2022-05-12 20:15:00 85 /min [facility] Body temperature 2022-05-12 20:15:00 35.83 Nabila [facility] Respiratory rate 2022-05-12 20:15:00 18 /min [facility] Body height 2022-05-12 20:15:00 167.6 cm [facility] Body weight 2022-05-12 20:15:00 83.961 kg [facility] BMI 2022-05-12 20:15:00 29.88 kg/m2 [facility] Body temperature 2022-05-05 16:37:00 36.56 Nabila [facility] Body weight 2022-05-05 16:37:00 83.553 kg [facility] Systolic blood 2022-04-28 17:19:00 128 mm[Hg] [facility] Diastolic blood 2022-04-28 17:19:00 73 mm[Hg] [facility] Heart rate 2022-04-28 17:19:00 87 /min [facility] Body temperature 2022-04-28 17:19:00 37.06 Nabila [facility] Respiratory rate 2022-04-28 17:19:00 18 /min [facility] Body weight 2022-04-28 17:19:00 82.736 kg [facility] Body temperature 2022-04-21 16:16:00 36.61 Nabila [facility] Body weight 2022-04-21 16:16:00 81.421 kg [facility] BMI 2022-04-21 16:16:00 28.97 kg/m2 [facility] Systolic blood 2022-04-14 16:55:00 119 mm[Hg] [facility] Diastolic blood 2022-04-14 16:55:00 72 mm[Hg] [facility]ive rsity [facility] Heart rate 2022-04-14 16:55:00 75 /min [facility] Body temperature 2022-04-14 16:55:00 36.78 Nabila [facility] Respiratory rate 2022-04-14 16:55:00 16 /min [facility] Body height 2022-04-14 16:55:00 167.6 cm [facility] Body weight 2022-04-14 16:55:00 79.742 kg [facility] BMI 2022-04-14 16:55:00 28.37 kg/m2 [facility] Systolic blood 2022-04-07 19:07:00 122 mm[Hg] [facility] Diastolic blood 2022-04-07 19:07:00 76 mm[Hg] [facility]ive rsity of [facility] Heart rate 2022-04-07 19:07:00 95 /min [facility] Body temperature 2022-04-07 19:07:00 37.06 Nabila [facility] Respiratory rate 2022-04-07 19:07:00 20 /min [facility] Body weight 2022-04-07 19:07:00 78.835 kg [facility] Systolic blood 2022-03-31 15:59:00 118 mm[Hg] [facility]iver [facility]ity of pressure [facility] Diastolic blood 2022-03-31 15:59:00 76 mm[Hg] [facility]ive rs[facility] of pressure [facility] Heart rate 2022-03-31 15:59:00 82 /min [facility] Body temperature 2022-03-31 15:59:00 37.11 Nabila [facility] Respiratory rate 2022-03-31 15:59:00 18 /min [facility] Body height 2022-03-31 15:59:00 167.6 cm [facility] Body weight 2022-03-31 15:59:00 76.885 kg [facility] BMI 2022-03-31 15:59:00 27.36 kg/m2 [facility] Body temperature 2022-03-24 15:55:00 36.61 Nabila [facility] Respiratory rate 2022-03-24 15:55:00 18 /min [facility] Body weight 2022-03-24 15:55:00 75.796 kg [facility] Systolic blood 2022-03-10 17:15:00 116 mm[Hg] [facility] Diastolic blood 2022-03-10 17:15:00 74 mm[Hg] [facility] Heart rate 2022-03-10 17:15:00 77 /min [facility] Body temperature 2022-03-10 17:15:00 36.94 Nabila [facility] Respiratory rate 2022-03-10 17:15:00 20 /min [facility] Body height 2022-03-10 17:15:00 167.6 cm [facility] Body weight 2022-03-10 17:15:00 72.938 kg [facility] BMI 2022-03-10 17:15:00 25.95 kg/m2 [facility] Systolic blood 2022-02-24 16:18:00 109 mm[Hg] [facility] Diastolic blood 2022-02-24 16:18:00 68 mm[Hg] [facility] Heart rate 2022-02-24 16:18:00 83 /min [facility] Body temperature 2022-02-24 16:18:00 36.44 Nabila [facility] Respiratory rate 2022-02-24 16:18:00 18 /min [facility] Body height 2022-02-24 16:18:00 167.6 cm [facility] Body weight 2022-02-24 16:18:00 69.673 kg [facility] BMI 2022-02-24 16:18:00 24.79 kg/m2 [facility] Systolic blood 2022-02-10 19:32:00 135 mm[Hg] [facility]iver [facility] Diastolic blood 2022-02-10 19:32:00 90 mm[Hg] [facility]ive rsity of pressure [facility] Heart rate 2022-02-10 19:32:00 130 /min [facility] Body temperature 2022-02-10 19:32:00 36.89 Nabila [facility] Respiratory rate 2022-02-10 19:32:00 20 /min [facility] Body height 2022-02-10 19:32:00 167.6 cm [facility] Body weight 2022-02-10 19:32:00 71.215 kg [facility] BMI 2022-02-10 19:32:00 25.34 kg/m2 [facility] Systolic blood 2022-01-27 15:32:00 127 mm[Hg] [facility] Diastolic blood 2022-01-27 15:32:00 77 mm[Hg] [facility]ive [facility] pressure [facility] Heart rate 2022-01-27 15:32:00 99 /min [facility] Body temperature 2022-01-27 15:32:00 36.22 Nabila [facility] Respiratory rate 2022-01-27 15:32:00 20 /min [facility] Body height 2022-01-27 15:32:00 167.6 [...] 2021-12-23 14:24:00 87 /min [facility] Body temperature 2021-12-23 14:24:00 37 Nabila [facility] Respiratory rate 2021-12-23 14:24:00 18 /min [facility] Body height 2021-12-23 14:24:00 167.6 cm [facility] Body weight 2021-12-23 14:24:00 70.761 kg [facility] BMI 2021-12-23 14:24:00 25.18 kg/m2 [facility] Systolic blood 2021-12-09 14:24:00 118 mm[Hg] Univer [facility]ity of pressure [facility] Diastolic blood 2021-12-09 14:24:00 79 mm[Hg] [facility] rs[facility] pressure [facility] Heart rate 2021-12-09 14:24:00 88 /min [facility] Body temperature 2021-12-09 14:24:00 36.67 Nabila [facility] Respiratory rate 2021-12-09 14:24:00 16 /min [facility] ersity of [facility] Body height 2021-12-09 14:24:00 167.6 cm [facility] Body weight 2021-12-09 14:24:00 72.53 kg [facility] BMI 2021-12-09 14:24:00 25.81 kg/m2 [facility] Oxygen saturation in 2021-12-09 14:24:00 97 /min University Arterial blood by [facility] Pulse oximetry Branch Systolic blood 2021-10-12 18:17:00 124 mm[Hg] Univer sity of pressure [facility] Diastolic blood 2021-10-12 18:17:00 90 mm[Hg] [facility]ive rsity of pressure [facility] Heart rate 2021-10-12 18:17:00 112 /min [facility] Body temperature 2021-10-12 18:17:00 37.11 Nabila [facility] Respiratory rate 2021-10-12 18:17:00 20 /min [facility] Body height 2021-10-12 18:17:00 167.6 cm [facility] Body weight 2021-10-12 18:17:00 68.04 kg [facility] BMI 2021-10-12 18:17:00 24.21 kg/m2 [facility] Procedures Procedure Date / Time Performing Clinician Source Performed PROTEIN CREAT RATIO 2022-07-29 05:00:00 [facility] CBC WITH DIFF 2022-07-25 10:37:00 Kasey Blanco [facility] COMP. METABOLIC PANEL 2022-07-25 03:06:00 Shi Blancosol [facility] ([id number]) [facility] CBC WITH DIFF 2022-07-25 03:06:00 Francis [facility] PROTEIN CREAT RATIO 2022-07-25 03:06:00 Kasey Blanco [facility] URINE RANDOM [facility] CBC WITH DIFF 2022-07-22 08:27:00 Adum, Hetal Mario [facility] CBC WITH DIFF 2022-07-22 08:27:00 Adum, Hetal Mario [facility] SECTION 2022-07-21 18:36:00 Adum, Hetal Mario [facility] SECTION 2022-07-21 18:36:00 Adum, Hetal Mario [facility] URINE DRUG (IMMUNOASSAY) 2022-07-21 18:12:00 Adum, Hetal Mario [facility] SCREEN W/O REFLEX URINE DRUG (IMMUNOASSAY) 2022-07-21 18:12:00 Adum, Hetal Mario [facility] SCREEN W/O REFLEX CBC WITH DIFF 2022-07-21 16:52:00 Adum, Hetal Mario [facility] HEPATITIS B SURFACE 2022-07-21 16:52:00 Adum, Hetal Mario [facility] ANTIGEN [facility] HB ABO GROUPING 2022-07-21 16:52:00 Adum, Hetal Mario [facility] ADC OR KATALINA ONLY - 2022-07-21 16:52:00 [facility] HIV 1/2 AG-AB WITH 2022-07-21 16:52:00 Adum, Hetal Mario [facility] REFLEX [facility] CBC WITH DIFF 2022-07-21 16:52:00 Adum, Hetal Fabiano [facility] HEPATITIS B SURFACE 2022-07-21 16:52:00 Adum, Hetal Mario [facility] ANTIGEN [facility] HB ABO GROUPING 2022-07-21 16:52:00 Adum, Hetal Mario [facility] ADC OR KATALINA ONLY - 2022-07-21 16:52:00 Adum, Hetal Mario [facility] RPR [facility] HIV 1/2 AG-AB WITH 2022-07-21 16:52:00 Adum, Hetal Mario [facility] REFLEX [facility] RHO (D) IMMUNE GLOBULIN 2022-07-21 16:52:00 Tony Blanco [facility] ONLY - FERN TEST 2022-07-21 16:06:00 Adum, Hetal Mario [facility] ADC ONLY - FERN TEST 2022-07-21 16:06:00 Adum, Hetal Mario [facility] CONSENT/REFUSAL FOR 2022-07-21 15:31:39 Doctor Unassigned, No [facility] [place] [facility] CONSENT/REFUSAL FOR 2022-07-21 15:31:39 Doctor Unassigned, No [facility] [place] [facility] Name [facility] URINALYSIS 2022-07-17 16:35:00 Adum, Hetal Mario [facility] ONLY - FERN TEST 2022-07-17 16:35:00 Adum, Hetal Mario [facility] URINALYSIS 2022-07-11 06:30:00 Austin Arzola [facility] ADC CLC OR [facility] ONLY - 2022-07-11 06:30:00 Austin Arzola [facility] WET PREP [facility] NOTICE OF PRIVACY 2022-07-11 03:43:30 Doctor Unassigned, No Univ ersity [facility] PRACTICES [facility] CONSENT/REFUSAL FOR 2022-07-11 03:43:01 Doctor Unassigned, No [facility] [place] [facility] Name [facility] ASSIGNMENT OF BENEFITS 2022-07-11 03:42:40 Doctor Unassigned, No [facility] POCT URINALYSIS 2022-07-08 19:23:00 Antonette Solano [facility] L&D VISIT 2022-07-06 05:01:00 Doctor Unassigned, No [facility] (NON-DELIVERED) [facility] ASSIGNMENT OF BENEFITS 2022-07-06 04:55:57 Doctor Unassigned, No [facility] POCT URINALYSIS 2022-06-23 19:48:00 Antonette Solano [facility] POCT URINALYSIS 2022-06-09 18:04:00 Antonette Solano [facility] TDAP VACCINE, >11 YRS, 2022-05-26 15:59:59 Tushar Lan [facility] GLUCOSE 1 HOUR POST 2022-05-12 21:16:00 Tushar Lan [facility] CBC WITH DIFF 2022-05-12 21:16:00 Tushar Lan [facility] POCT URINALYSIS 2022-05-12 20:18:00 Antonette Solano [facility] POCT URINALYSIS 2022-04-28 17:24:00 Antonette Solano [facility] SECOND AND THIRD 2022-04-14 15:44:00 Antonette Solano [facility] TRIMESTER ULTRASOUND [facility] POCT URINALYSIS 2022-03-31 16:02:00 Antonette Solano [facility] POCT URINALYSIS 2022-03-10 00:00:00 Antonette Solano [facility] POCT URINALYSIS 2022-02-24 16:30:00 Antonette Solano [facility] POCT URINALYSIS 2022-02-10 00:00:00 Antonette Solano [facility] POCT URINALYSIS 2022-01-27 15:33:00 Antonette Solano [facility] REPORT OF 2021-12-23 05:01:00 Doctor [facility]igned, [facility] 2021-12-23 00:00:00 Antonette Solano [facility] POCT URINALYSIS W/O 2021-12-23 00:00:00 Antonette Solano [facility] SPECIFIC GRAVITY [facility] US FIRST 2021-12-14 21:24:20 Sara Snyder [facility] TRIMESTER LESS THAN [address] [facility] [place] WEEKS WITH TRANSVAGINAL ASSIGNMENT OF BENEFITS 2021-12-14 19:54:43 Doctor Unassigned, No [facility] POCT TEST 2021-12-09 00:00:00 Sara Snyder [facility] POCT TEST 2021-10-12 18:22:00 Tushar Lan [facility] Encounters Start End Encounter Admission Attending Care Care Encounter Source Date/Time Date/Time Type Type Clinicians Facility Department ID 2022-07-24 Outpatient P KASEY BLANCO [facility] [id number] Univers 07:39:17 KASEY BLANCO ity [facility] 2022-07-11 Outpatient X [facility] [id number] Univers 03:19:31 ity [facility] 2020-12-27 Emergency [facility] [id number] Univers 22:10:58 ity [facility] 2020-12-27 Emergency [facility] [id number] [facility] P [facility] [id number] Univers 19:19:43 ity [facility] 2020-12-27 Outpatient P [facility] [id number] [facility]22-09-07 2022-09-07 [id number] Univers 15:15:00 16:22:49 TUSHAR katz f [facility] [facility] 2022-08-29 2022-08-29 Telephone [facility] 1.2.840.114 [id number] Univers 00:00:00 00:00:00 Tushar C COMMISSIONED [employer]ENCE [employer]CE OFFICER 350.1.13.10 ity of REGIONAL 4.2.7.2.686 Jamal as MATERNAL [id number] [facility] & [address] 2022-08-29 2022-08-29 Telephone [facility] 1.2.840.114 [id number] [facility] 00:00:00 00:00:00 Tushar C COMMISSIONED [employer]ENCE FORCE 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 350.1.13.10 ity of REGIONAL 4.2.7.2.686 Jamal as MATERNAL [id number] [address] 2022-08-12 2022-08-12 Outpatient R RIKY [facility] [id number] Univers 10:00:00 11:16:38 TUSHAR rizo o [facility] 2022-08-12 2022-08-12 [facility]ine [facility] 1.2.601.366 [id number] Univers 10:00:00 11:16:38 Tushar C COMMISSIONED [employer]ENCE [employer]CE OFFICER 350.1.13.10 ity of Visit REGIONAL 4.2.7.2.686 Jamal as MATERNAL [id number] [address] 2022-08-01 2022-08-01 Nurse Visit, Ang-Rmchp Nurse [facility] 1.2 .840.114 [id number] Univers 09:30:00 10:21:06 Visit Tushar Lan C COMMISSIONED [employer]ENCE [employer]CE OFFICER 350.1.13. 10 ity of REGIONAL 4.2.7.2.686 Jamal as MATERNAL [id number] [facility] & CHILD [address] [place] [address] 2022-08-01 2022-08-01 Outpatient R RIKY [facility] [id number] Univers 09:30:00 09:30:00 TUSHAR rizo o f [facility] 2022-07-28 2022-07-29 Outpatient Trinity NORRIS [facility] ELIAZAR [id number] Univers 20:06:00 12:45:00 HETAL rizo of [facility] 2022-07-282022-07-29 [facility] 1.2 .840.114 [id number] Univers 20:06:00 12:45:00 Encounter Hetal NorrisRAVI 350.1.13.10 ity [facility] 4.2.7.2.686 [facility] [id number] [place] [address]23 [place] 2022-07-27 2022-07-27 Nurse MOSHE [place] 1.2.840.114 [id number] Univers 00:00:00 00:00:00 Triage Patt ESPINAL 350.1.13.10 it y of [facility] 4.2.7.2.686 Jamal as [phone] [facility] [address] 2022-07-26 2022-07-26 Telephone Riky [facility] 1.2.840.114 10 [id number] Univers 00:00:00 00:00:00 Tushar Lund COMMISSIONED [employer]ENCE [employer] OFFICER 350.1.13.10 ity [facility] 4.2.7.2.686 Jamal as MATERNAL [phone] Med ical & CHILD [address] [place] [address] 2022-07-24 2022-07-25 Outpatient P [facility] [id number] Univers 09:28:00 12:30:00 [facility]ILL[facility]HI [facility] 2022-07-24 2022-07-25 [facility] 1.2.840.114 1 [id number] Univers 09:28:00 12:30:00 Encounter Kasey taylor 350.1.13.10 ity [facility] 4.2.7.2.686 [facility] [id number] [address] 2022-07-21 2022-07-23 Inpatient X [facility] ELIAZAR [id number] Univers 10:37:00 13:45:00 HETAL itspenser [facility] 2022-07-21 2022-07-23 [facility] 1.2.840.114 [id number] Univers 10:37:00 13:45:00 Encounter Hetal Mario PINA 350.1.13.10 ity [facility] 4.2.7.2.686 [facility] [id number] [place] 898023 [place] 2022-07-21 2022-07-21 Surgery Adum, [facility] 1.2.840.114 [id number] Univers 12:35:00 14:27:00 Hetal Mario [place] 350.1.13.10 ity of [facility] 4.2.7.2.686 [facility] [id number] [facility] [address] [place] 2022-07-21 2022-07-21 Outpatient R AKINSIPE, [facility] [id number] Univers 10:45:00 10:45:00 TUSHAR ity o f [facility] 2022-07-19 2022-07-19 Case Ad, [facility] 1.2.840.114 [id number] Univers 00:00:00 00:00:00 Management Hetal Mario [place] 350.1.13.10 ity of [place] 4.2.7.2.686 [facility] PROFESSIO [id number] Mn dical NAL [address] [place] [address] 2022-07-17 2022-07-17 [facility] [id number] Univers 10:38:00 12:40:00 HETAL ity of [facility] 2022-07-17 2022-07-17 Emergency Ad, [facility] 1.2.112.431 [id number] Univers 10:38:00 12:40:00 Hetal L [place] 350.1.13.10 ity of [place] 4.2.7.2.[address] [place] [id number] 2022-07-10 2022-07-11 Outpatient X AUSTIN ARZOLA [facility] ELIAZAR [id number] Univers 22:46:00 03:10:00 ity of [facility] 2022-07-10 2022-07-11 Emergency Maxim Austin [facility] 1.2.840.114 10 [id number] Univers 22:46:00 03:10:00 Cam [place] 350.1.13.10 i ty of [facility] 4.2.7.2.686 [facility] [id number] [address] 2022-07-112022-07-11 Telephone [facility] 1.2.840.114 10 [id number] Univers 00:00:00 00:00:00 Tushar C COMMISSIONED DEFENCE [employer]CE OFFICER 350.1.13.10 ity of REGIONAL 4.2.7.2.686 Jamal as MATERNAL [id number] [facility] ical & CHILD [address] [place] [address] 2022-07-08 2022-07-08 Outpatient R KENNEDY [facility] [id number] Univers 14:15:00 14:41:47 TUSHAR ity o f [facility] 2022-07-08 2022-07-08 Routine [facility] 1.2.156.927 [id number] Univers 14:15:00 14:41:47 Tushar C COMMISSIONED DEFENCE [employer]CE OFFICER 350.1.13.10 ity of Visit REGIONAL 4.2.7.2.686 Jamal as MATERNAL [id number] [facility] & CHILD [address] [place] [address] 2022-07-06 2022-07-06 Outpatient P ADUM, [facility] ELIAZAR [id number] Univers 00:06:00 04:42:00 HETAL rizo of [facility] 2022-07-06 2022-07-[address] [facility] 1.2.109.850 [id number] Univers 00:06:00 04:42:00 Hetal HELLER 350.1.13.10 ity of [place] 4.2.7.2.686 [place] [facility] [id number] [facility] [address] [place] 2022-07-06 2022-07-06 Orders Doctor MESA 1.2.840.114 [id number] Univers 00:00:00 00:00:00 Only Unassigned, TEDDY 350.1.13.10 ity of [place] [facility] 4.2.7.2.686 Jamal as [id number] [facility] 009 [place] 2022-07-05 2022-07-05 Orders Doctor MOSHE 1.2.840.114 [id number] Univers 00:00:00 00:00:00 Only Unassigned, TEDDY 350.1.13.10 ity of [place] [facility] 4.2.7.2.686 Jamal as [id number] [address] 2022-06-23 2022-06-23 Outpatient R AKINSIPE, [facility] [id number] Univers 14:45:00 15:08:35 TUSHAR rizo o [facility] 2022-06-23 2022-06-23 Routine Akinsipe, [facility] 1.2.098.556 [id number] Univers 14:45:00 15:08:35 Tushar C COMMISSIONED DEFENCE FORCE OFFICER 350.1.13.10 ity of Visit REGIONAL 4.2.7.2.686 Jamal as MATERNAL [id number] [facility] CHILD [address] [place] [address] 2022-06-16 2022-06-16 Outpatient R AKINSIPE, [facility] [id number] Univers 13:00:00 13:00:00 TUSHAR rizo o [facility] 2022-06-09 2022-06-09 Outpatient R AKINSIPE, [facility] [id number] Univers 12:45:00 13:24:30 TUSHAR rizo o [facility] 2022-06-09 2022-06-09 Routine Akinsipe, [facility] 1.2.073.754 [id number] Univers 12:45:00 13:24:30 Tushar C COMMISSIONED DEFENCE FORCE OFFICER 350.1.13.10 ity of Visit REGIONAL 4.2.7.2.686 Jamal as MATERNAL [id number] [address] 2022-06-02 2022-06-02 Nurse Visit, [facility] Nurse [facility] 1.2 .840.114 [id number] Univers 10:30:00 10:42:00 Visit AkinSteven bryantilola C COMMISSIONED DEFENCE FORCE OFFICER 350.1.13. 10 ity of REGIONAL 4.2.7.2.686 Jamal as MATERNAL [id number] [address] 2022-06-02 2022-06-02 Outpatient R AKINSIPE, [facility] [id number] Univers 10:30:00 10:30:00 TUSHAR rizo o [facility] 2022-05-26 2022-05-26 Outpatient R AKINSIPE, [facility] [id number] Univers 10:30:00 11:07:20 TUSHAR ity o f [facility] 2022-05-26 2022-05-26 Routine Akinsipe, [facility] 1.2.399.383 [id number] Univers 10:30:00 11:07:20 Tushar C COMMISSIONED DEFENCE FORCE OFFICER 350.1.13.10 ity of Visit REGIONAL 4.2.7.2.686 Jamal as MATERNAL [id number] [facility] ical & CHILD [address] [place] [address] 2022-05-19 2022-05-19 [facility] 1.2 .840.114 [id number] [facility] 10:30:00 11:03:10 Visit Akinsipe, Tushar C COMMISSIONED DEFENCE FORCE OFFICER 350.1.13. 10 ity of REGIONAL 4.2.7.2.686 Jamal as MATERNAL [id number] [facility] CHILD [address] [place] [address] 2022-05-19 2022-05-19 Outpatient R AKINSIPE, [facility] [id number] Univers 10:30:00 10:30:00 TUSHAR ity o f [facility] 2022-05-12 2022-05-12 Outpatient R AKINSIPE, [facility] [id number] Univers 14:45:00 15:46:52 TUSHAR ity o f [facility] 2022-05-12 2022-05-12 Routine Akinsipe, [facility] 1.2.216.485 [id number] Univers 14:45:00 15:46:52 Tushar C COMMISSIONED DEFENCE [employer]CE OFFICER 350.1.13.10 ity of Visit REGIONAL 4.2.7.2.686 Jamal as MATERNAL [id number] [facility] CHILD [address] [place] [address] 2022-05-05 2022-05-05 Nurse Visit, [facility] 1.2 .840.114 [id number] Univers 10:30:00 10:45:51 Visit Akinsipe, Tushar C COMMISSIONED DEFENCE FORCE OFFICER 350.1.13. 10 ity of REGIONAL 4.2.7.2.686 Jamal as MATERNAL [id number] [facility] ical & CHILD [address] [place] [address] 2022-05-05 2022-05-05 Outpatient R AKINSIPE, [facility] [id number] Univers 10:30:00 10:30:00 TUSHAR ity o f [facility] 2022-04-28 2022-04-28 Outpatient R AKINSIPE, [facility] [id number] Univers 11:00:00 11:44:12 TUSHAR ity o f [facility] 2022-04-28 2022-04-28 Routine Akinsipe, [facility] 1.2.721.279 [id number] Univers 11:00:00 11:44:12 Tushar C COMMISSIONED DEFENCE FORCE OFFICER 350.1.13.10 ity of Visit REGIONAL 4.2.7.2.686 Jamal as MATERNAL [id number] [facility] ical & CHILD [address] [place] [address] 2022-04-21 2022-04-21 Nurse Visit, Ang-Rmchp Nurse [facility] 1.2 .840.114 [id number] Univers 10:00:00 10:30:36 Visit Antonette Solano COMMISSIONED DEFENCE FORCE OFFICER 350.1.13.1 0 ity of REGIONAL 4.2.7.2.686 Jamal as MATERNAL [id number] [facility] ical & CHILD [address] [place] [address] 2022-04-21 2022-04-21 Outpatient R ENE [facility] [id number] Univers 10:00:00 10:00:00 ANTONETTE [facility] 2022-04-14 2022-04-14 Outpatient R ASYA, [facility] [id number] Univers 09:15:00 11:39:36 SHEREEN [facility] 2022-04-14 2022-04-14 Routine Risk, Zad-Jnhsv-Yy/High [facility] 1. 2.840.114 [id number] Univers 09:15:00 11:39:36 Shereen Travis COMMISSIONED DEFENCE FORCE OFFICER 350.1.13.10 ity of Visit REGIONAL 4.2.7.2.686 Jamal as MATERNAL [id number] [facility] ical & CHILD [address] [place] [address] 2022-04-14 2022-04-14 Nurse Visit, Ang-Rmchp Nurse [facility] 1.2 .840.114 [id number] Univers 10:30:00 10:45:00 Visit Tushar Lan COMMISSIONED DEFENCE FORCE OFFICER 350.1.13. 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, Leonardo [facility] 1.2 .840.114 [id number] Univers 09:30:00 10:39:28 Visit Shereen Travis COMMISSIONED DEFENCE FORCE OFFICER 350.1.13.10 ity of REGIONAL 4.2.7.2.686 Jamal as MATERNAL [id number] [facility] & CHILD [address] [place] [address] 2022-04-14 2022-04-14 Outpatient R RIKY [facility] [id number] Univers 10:30:00 10:30:00 TUSHAR katz [facility] 2022-04-14 2022-04-14 Case Ene [facility] 1.2.840.114 [id number] Univers 00:00:00 00:00:00 Management Antonette Millard COMMISSIONED DEFENCE FORCE OFFICER 350.1.13.10 ity of REGIONAL 4.2.7.2.686 Jamal as MATERNAL [id number] [facility] & [address] 2022-04-07 2022-04-07 Nurse Visit, Neftali Nurse [facility] 1.2 .840.114 [id number] Univers 13:00:00 13:13:39 Visit Tushar Lan COMMISSIONED DEFENCE FORCE OFFICER 350.1.13. 10 ity of REGIONAL 4.2.7.2.686 Jamal as MATERNAL [id number] [facility] CHILD [address] [place] [address] 2022-04-07 2022-04-07 Outpatient R RIKY [facility] [id number] Univers 13:00:00 13:00:00 TUSHAR lauren [facility] 2022-04-07 2022-04-07 Telephone Riky [facility] 1.2.840.114 [id number] Univers 00:00:00 00:00:00 Tushar Lund COMMISSIONED DEFENCE FORCE OFFICER 350.1.13.10 ity of REGIONAL 4.2.7.2.686 Jamal as MATERNAL [id number] [facility] ical & CHILD [address] [place] [address] 2022-03-31 2022-03-31 Outpatient Angelica CAGE LASOLE [facility] [id number] Univers 09:45:00 10:58:49 EDWIN rizo [facility] 2022-03-31 2022-03-31 Routine Risk, Npf-Xvgcm-Ub/High [facility] 1. 2.840.114 [id number] Univers 09:45:00 10:58:49 Edwin Cage COMMISSIONED DEFENCE FORCE OFFICER 350.1.13.10 ity of Visit REGIONAL 4.2.7.2.686 Jamal as MATERNAL [id number] [facility] ical & CHILD [address] [place] [address] 2022-03-24 2022-03-24 Nurse Visit, Neftali Nurse [facility] 1.2 .840.114 [id number] Univers 10:00:00 10:00:00 Visit Tushar Lan COMMISSIONED DEFENCE FORCE OFFICER 350.1.13. 10 ity of REGIONAL 4.2.7.2.686 Jamal as MATERNAL [id number] [facility] & CHILD [address] [place] [address] 2022-03-24 2022-03-24 Outpatient Angelica LAN [facility] [id number] Univers 10:00:00 09:55:01 TUSHAR rizo o f [facility] 2022-03-15 2022-03-15 Telephone Riky [facility] 1.2.840.114 [id number] Univers 00:00:00 00:00:00 Tushar Lund COMMISSIONED DEFENCE FORCE OFFICER 350.1.13.10 ity of REGIONAL 4.2.7.2.686 Jamal as MATERNAL [id number] [facility] ical & CHILD [address] [place] [address] 2022-03-10 2022-03-10 Outpatient Angelica CAGE LASOLE [facility] [id number] Univers 11:00:00 11:45:31 EDWIN rizo of [facility] 2022-03-10 2022-03-10 Routine Risk, Qye-Itapp-Cm/High [facility] 1. 2.840.114 [id number] Univers 11:00:00 11:45:31 Fauzia Edwin Blas COMMISSIONED DEFENCE FORCE OFFICER 350.1.13.10 ity of Visit REGIONAL 4.2.7.2.686 Jamal as MATERNAL [id number] [facility] ical & CHILD [address] [place] [address] 2022-03-10 2022-03-10 Outpatient R [facility] [id number] Univers 10:30:00 10:30:00 ity of [facility] 2022-03-07 2022-03-07 [facility] 1.2.840.114 [id number] Univers 00:00:00 00:00:00 Tushar C COMMISSIONED DEFENCE FORCE OFFICER 350.1.13.10 ity of REGIONAL 4.2.7.2.686 Jamal as MATERNAL [id number] [facility] CHILD [address] [place] [address] 2022-03-07 2022-03-07 [facility] 1.2.840.114 [id number] Univers 00:00:00 00:00:00 Management Edwin Blas COMMISSIONED DEFENCE FORCE OFFICER 350.1.13.10 ity of REGIONAL 4.2.7.2.686 Jamal as MATERNAL [id number] [facility] ical & CHILD [address] [place] [address] 2022-02-24 2022-02-24 Outpatient R FAUZIA [facility] [id number] Univers 10:00:00 11:04:18 EDWIN [facility] 2022-02-24 2022-02-24 Routine Risk, Aco-Ogfkd-Be/High [facility] 1. 2.840.114 [id number] Univers 10:00:00 11:04:18 Fauzia Edwin Blas COMMISSIONED DEFENCE FORCE OFFICER 350.1.13.10 ity of Visit REGIONAL 4.2.7.2.686 Jamal as MATERNAL [id number] [facility] ical & CHILD [address] [place] [address] 2022-02-10 2022-02-10 Outpatient Angelica CAGE [facility] [id number] Univers 13:15:00 13:59:26 [facility] 2022-02-10 2022-02-10 Routine Risk, Eia-Wuvtk-Ya/High [facility] 1. 2.840.114 [id number] Univers 13:15:00 13:59:26 Edwin Cage COMMISSIONED DEFENCE FORCE OFFICER 350.1.13.10 ity of Visit REGIONAL 4.2.7.2.686 Jamal as MATERNAL [id number] [facility] ical & CHILD [address] [place] [address] 2022-01-27 2022-01-27 Outpatient Angelica CAGE [facility] [id number] Univers 09:00:00 10:00:53 [facility] 2022-01-27 2022-01-27 Routine Risk, Rfc-Ztuxq-Zc/High [facility] 1. 2.840.114 [id number] Univers 09:00:00 10:00:53 Edwin Cage COMMISSIONED DEFENCE FORCE OFFICER 350.1.13.10 ity of Visit REGIONAL 4.2.7.2.686 Jamal as MATERNAL [id number] [facility] CHILD [address] [place] [address] 2022-01-10 2022-01-10 Case Ene [facility] 1.2.840.114 [id number] Univers 00:00:00 00:00:00 Management Antonette Millard COMMISSIONED DEFENCE FORCE OFFICER 350.1.13.10 ity of REGIONAL 4.2.7.2.686 Jamal as MATERNAL [id number] [facility] CHILD [address] [place] [address] 2022-01-06 2022-01-06 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, [facility] 1.2 .840.114 [id number] Univers 15:15:00 15:45:00 Visit David Cooper COMMISSIONED DEFENCE FORCE OFFICER 350.1.13.10 ity of REGIONAL 4.2.7.2.686 Jamal as MATERNAL [id number] [facility] ical & CHILD [address] [facility] 2022-01-06 2022-01-06 Outpatient P BALBIR [facility] [id number] Univers 15:15:00 15:15:00 DAVID rizo [facility] 2021-12-30 2021-12-30 Outpatient R SARA SNYDER [facility] B [id number] Univers 10:00:00 10:00:00 SARA SNYDERspenser of [facility] 2021-12-23 2021-12-23 Outpatient R ENE [facility] [id number] Univers 09:15:00 10:41:00 ANTONETTE ity of [facility] 2021-12-23 2021-12-23 Initial Provider, WestRmchp Temp [facility] 1 .2.840.114 [id number] Univers 09:15:00 10:41:00 Niki Ralph R COMMISSIONED DEFENCE FORCE OFFICER 350.1.13.1 0 ity of Visit Antonette Solano [facility] 4.2.7.2.686 [place] MATERNAL [phone] Med ical & CHILD [address] [place] [address] 2021-12-23 2021-12-23 Orders Doctor [facility] 1.2.840.114 [id number] Univers 00:00:00 00:00:00 Only Unassigned, TEDDY 350.1.13.10 ity of [place] [facility] 4.2.7.2.686 [facility] [id number] [facility] [address] 2021-12-17 2021-12-17 Case [facility] 1.2.840.114 [id number] Univers 00:00:00 00:00:00 Management Sara DONALDSON 350.1.13.10 ity of [facility] 4.2.7.2.686 [facility] [id number] [facility] [address] 2021-12-14 2021-12-14 Outpatient R SARA SNYDER [facility] B [id number] Univers 14:55:04 23:59:00 SARA SNYDER itspenser [facility] 2021-12-14 2021-12-14 [place] [facility] 1.2.840.114 [id number] Univers 14:55:04 23:59:00 Encounter Sara HELLER 350.1.13.10 ity of [place] 4.2.7.2.686 [facility] [id number] [facility] [address] [place] 2021-12-14 2021-12-14 Orders Doctor MESA 1.2.840.114 [id number] Univers 00:00:00 00:00:00 Only Unassigned, TEDDY 350.1.13.10 ity of [place] [facility] 4.2.7.2.686 Jamal as [id number] [address] 2021-12-09 2021-12-09 Outpatient R SARA SNYDER [facility] B [id number] Univers 09:00:00 09:43:20 TRISARA AGUILA ity of [facility] 2021-12-09 2021-12-09 Initial Tiffani [facility] 1.2.840.114 [id number] Univers 09:00:00 09:43:20 Sara DONALDSON 350.1.13.10 i ty of Visit [facility] 4.2.7.2.686 [place] [facility] [id number] [place] [address] [address] 2021-10-12 2021-10-12 [facility] 1.2.451.114 [id number] Univers 13:00:00 13:34:47 Visit Tushar Lund COMMISS[employer] OFFICER 350.1.13.10 ity of [facility] 4.2.7.2.686 Jamal as MATERNAL [phone] Med ical & CHILD [address] [place] [address] 2021-10-12 2021-10-12 Outpatient R AKINSIPE, [facility] [id number] Univers 13:00:00 13:34:47 TUSHAR rizo o [facility] 2021-10-12 2021-10-12 Outpatient R AKINSIPE, [facility] [id number] Univers 13:00:00 13:00:00 TUSHAR riosy o f [facility] 2021-10-12 2021-10-12 Outpatient R AKINSIPE, [facility] [id number] Univers 13:00:00 13:00:00 TUSHAR riosy o [facility] 2021-10-12 2021-10-12 Orders Doctor [facility]ES[facility] 1.2.840.114 [id number] Univers 00:00:00 00:00:00 Only Unassigned, TEDDY 350.1.13.10 ity of [place] [facility] 4.2.7.2.686 Jamal as [id number] [address] 2021-09-28 2021-09-28 [facility] [id number] Univers 12:45:00 14:31:13 TUSHAR lauren [facility] 2021-09-28 2021-09-28 Office [facility] 1.2.024.348 [id number] Univers 12:45:00 14:31:13 Visit Tushar Lund COMMISS[employer]ED [employer] OFFICER 350.1.13.10 ity of [place] [address].2.7.2.686 Jamal as MATERNAL [id number] [facility] ical & CHILD [address] [place] [address] 2021-08-05 2021-08-05 Outpatient R JAM SAUNDERS [facility] [id number] Univers 16:15:00 16:15:00 ity of [facility] 2021-06-18 2021-06-18 Outpatient R THERON [facility] [id number] Univers 11:00:00 11:00:00 [place] rizo [facility] 2021-06-15 2021-06-15 Orders Doctor MOSHE 1.2.840.114 [id number] Univers 00:00:00 00:00:00 Only Unassigned, TEDDY 350.1.13.10 ity of [place] [address]686 Jamal as [phone] [address] 2021-03-09 2021-03-09 [facility] [id number] Univers 14:00:00 14:00:00 TUSHAR lauren [facility] 2021-03-02 2021-03-02 Telephone [facility] [id number] Univers 00:00:00 00:00:00 Tushar Lund [employer] 350.1.13.10 ity of [facility] [id number] Jamal as MATERNAL [phone] [facility] & CHILD [address] [place] [address] 2021-02-12 2021-02-12 Arcadio Peacock [facility] [id number] Univers 00:00:00 00:00:00 Ernesto Rosario [employer] 350.1.13.10 it y of [facility] [id number] Jamal as MATERNAL [phone] [facility] & CHILD [address] [place] [address] 2021-02-11 2021-02-11 [facility] [id number] Univers 00:00:00 00:00:00 Tushar C [employer] [id number] ity of [facility] [id number] Jamal as MATERNAL [phone] [facility] & CHILD [address] [place] [address] 2021-01-27 2021-01-27 Arcadio [facility] [id number] Univers 00:00:00 00:00:00 Ernesto Rosario [employer] 350.1.13.10 it y of [facility] [id number] Jamal as MATERNAL [phone] [facility] & CHILD [address] [place] [address] 2021-01-18 2021-01-18 [facility] [id number] Univers 16:00:00 16:18:34 ERNESTO rizo [facility] 2021-01-18 2021-01-18 Office [facility] [id number] Univers 15:59:18 16:18:34 Visit Ernesto Rosario [employer] 350.1.13.10 it y of [facility] [id number] Jamal as MATERNAL [phone] [facility] & CHILD [address] [place] [address] 2021-01-18 2021-01-18 Outpatient Angelica [facility] [id number] Univers 16:00:00 16:00:00 ERNESTO rizo [facility] 2021-01-15 2021-01-15 [facility] [id number] Univers 13:15:00 13:15:00 ERNESTO rizo [facility] 2020-12-11 2020-12-11 Telephone [facility] 1.2.840.114 [id number] Univers 00:00:00 00:00:00 Tushar C [employer] OFFICER 350.1.13.10 ity of [facility] 4.2.7.2.686 Jamal as MATERNAL [phone] [facility] & [address] 2020-10-20 2020-10-20 Office [facility] 1.2.840.114 [id number] Univers 13:30:06 14:12:47 Visit Niki Dominguez [employer] OFFICER 350.1.13.10 ity of [facility] 4.2.7.2.686 Jamal as MATERNAL [id number] [facility] & [address] 2020-10-20 2020-10-20 Outpatient R RAMO [facility] [id number] Univers 13:30:00 13:30:00 NIKI lauren [facility] 2020-10-14 2020-10-14 [facility] [id number] Univers 15:00:00 15:00:00 TUSHAR rizo o [facility] 2020-10-12 2020-10-12 Office [facility] 1.2.883.694 [id number] Univers 14:17:44 15:03:31 Visit Tushar Lund [employer] OFFICER 350.1.13.10 ity of [facility] 4.2.7.2.686 Jamal as MATERNAL [phone] [address] 2020-10-12 2020-10-12 Outpatient R RIKY, [facility] [id number] Univers 14:30:00 14:30:00 TUSHAR rizo o [facility] 2020-09-28 2020-09-28 [facility] [id number] Univers 08:30:00 08:30:00 TUSHAR blancay o [facility] 2020-09-28 2020-09-28 Telephone [facility]DR[facility] 1.2.840.114 [id number] Univers 00:00:00 00:00:00 Ernesto Rosario [employer] OFFICER 350.1.13.10 it y of [facility] 4.2.7.2.686 Jamal as MATERNAL [phone] [facility] & [address] 2020-09-25 2020-09-25 Telephone [facility] 1.2.840.114 [id number] Univers 00:00:00 00:00:00 Tushar C [employer] OFFICER 350.1.13.10 ity of [facility]ION[facility] 4.2.7.2.686 Jamal as MATERNAL [phone] [facility] ical & CHILD [address] [place] [address] 2020-09-24 2020-09-24 Office Riky [facility] 1.2.198.868 [id number] Univers 14:14:05 14:29:05 Visit Tushar C [employer] OFFICER 350.1.13.10 ity of REGION[facility] 4.2.7.2.686 Jamal as MATERNAL [phone] [facility] [address] [place] [address] 2020-09-24 2020-09-24 Outpatient R RIKY [facility] [id number] Univers 14:15:00 14:15:00 TUSHAR rizo o f [facility] 2020-09-08 2020-09-08 Outpatient Angelica PEACOCK [facility] [id number] Univers 16:00:00 16:00:00 ERNESTO rizo [facility] 2020-08-18 2020-08-18 Routine Riky, [facility] 1.2.399.507 [id number] Univers 13:04:51 13:45:53 Tusahr C [employer] OFFICER 350.1.13.10 ity of Visit REGIONAL 4.2.7.2.686 Jamal as MATERNAL [phone] [facility] & CHILD [address] [place] [address] 2020-08-18 2020-08-18 Outpatient R RIKY [facility] [id number] Univers 13:15:00 13:15:00 TUSHAR rizo o f [facility] 2020-08-06 2020-08-06 Outpatient Angelica PEACOCK [facility] [id number] Univers 11:00:00 11:00:00 ERNESTO rizo [facility] 2020-08-06 2020-08-06 Nurse Visit, Tk-Rmchp Nurse [facility] 1.2 .840.114 [id number] Univers 08:21:04 09:08:19 Visit Tushar Lan [employer] OFFICER 350.1.13. 10 ity of REGION[facility] 4.2.7.2.686 Jamal as MATERNAL [phone] Med ical & CHILD 107 [facility] 2020-08-06 2020-08-06 Outpatient R RIKY [facility] [id number] Univers 09:00:00 09:00:00 TUSHAR lauren [facility] 2020-08-04 2020-08-04 Telephone Madonna [facility] 1.2.840.114 [id number] Univers 00:00:00 00:00:00 Ernesto Rosario [employer] OFFICER 350.1.13.10 it y of REGIONAL 4.2.7.2.686 Jamal as MATERNAL [phone] [facility] CH[facility] [address] [place] [address] 2020-08-01 2020-08-01 1.2.840.1 1.2.840.114 [id number] Univers 00:00:00 00:00:00 Encounter 44487.1.1 350.1.13.10 ity of 3.104.2.7 [place].696 [place][id number] [address] [facility] 2020-07-26 2020-07-28 [facility] 1.2.840.11 [id number] Univers 14:30:00 17:45:00 Encounter Austin Arzola 350.1.13.10 ity of [place] 4.2.7.2.686 [facility] [id number] [address] 2020-07-27 2020-07-27 Anesthesia [facility]DR[facility] 1.2.840.114 [id number] Univers 10:49:00 16:19:00 Event Dylan Heller 350.1.13.10 ity of [place] 4.2.7.2.686 [facility] [place] [id number] [address] 2020-07-26 2020-07-26 Anesthesia Maria [facility] 1.2.840.114 [id number] Univers 19:50:09 19:50:09 Event Angelica Heller 350.1.13.10 i ty of [place] 4.2.7.2.686 [place] [id number] [address] 2020-07-21 2020-07-21 Routine MadonnaDR. [facility] 1.2.629.859 [id number] Univers 12:46:13 13:17:55 Ernesto N COMM[employer] OFFICER 350.1.13.10 i ty of Visit [facility] 4.2.7.2.686 Jamal as MATERNAL [phone] [facility] ical & CHILD [address] [place] [address] 2020-07-21 2020-07-21 [facility]patient [facility] [id number] Univers 12:45:00 12:45:00 ERNESTOSHARMILA rizo [facility] 2020-07-12 2020-07-12 [facility] 1.2.840.114 [id number] Univers 02:00:00 03:20:00 Encounter Hetal Heller 350.1.13.10 ity [facility] 4.2.7.2.686 [place] [facility] [id number] [address] 2020-07-07 2020-07-07 Routine [facility]DR[facility] 1.2.827.991 [id number] Univers 10:39:36 11:15:55 Ernesto N [employer] OFFICER 350.1.13.10 i ty of Visit [facility] 4.2.7.2.686 Jamal as MATERNAL [phone] [facility] & [address] 2020-07-07 2020-07-07 Outpatient Angelica [facility] [id number] Univers 10:45:00 10:45:00 ERNESTOSHARMILA rizo [facility] 2020-06-26 2020-06-26 Telephone [facility]DR[facility] 1.2.840.114 [id number] Univers 00:00:00 00:00:00 Tushar Lund COMM[employer] OFFICER 350.1.13.10 ity of [facility] 4.2.7.2.686 Jamal as MATERNAL [phone] [facility] & CHILD [address] [place] [address] 2020-06-23 2020-06-23 Routine [facility] 1.2.994.667 [id number] Univers 14:10:30 14:38:56 Ernesto N COMMISS[employer]ED [employer] OFFICER 350.1.13.10 i ty of Visit [facility] 4.2.7.2.686 Jamal as MATERNAL [id number] [facility] & [address] 2020-06-23 2020-06-23 Outpatient [facility] [id number] Univers 14:15:00 14:15:00 ERNESTO rizo [facility] 2020-06-11 2020-06-11 Orders Doctor MOSHE 1.2.840.114 [id number] Univers 00:00:00 00:00:00 Only Unassigned, TEDDY 350.1.13.10 ity of [place] [facility] 4.2.7.2.686 Jamal as [id number] [address] 2020-06-09 2020-06-09 Routine Niki Ralph [facility] 1.2.840 .114 [id number] Univers 14:16:51 14:55:17 Ernesto Peacock [employer] OFFICER 350.1.13.10 ity of Visit REGIONAL 4.2.7.2.686 Jamal as MATERNAL [id number] [address] 2020-06-09 2020-06-09 Outpatient R MADONNA [facility] [id number] Univers 14:15:00 14:15:00 ERNESTO rizo [facility] 2020-06-02 2020-06-02 Orders Doctor MOSHE 1.2.840.114 [id number] Univers 00:00:00 00:00:00 Only Unassigned, TEDDY 350.1.13.10 ity of [place] [facility] 4.2.7.2.686 Jamal as [id number] [address] 2020-06-01 2020-06-01 Refill Riky [facility] 1.2.965.783 [id number] Univers 00:00:00 00:00:00 Tushar Lund COMM[employer] OFFICER 350.1.13.10 ity of REGION[facility] 4.2.7.2.686 Jamal as MATERNAL [id number] [address] 2020-05-21 2020-05-21 Farm [employer], Ang-Rmchp [facility] 1.2.840. 114 [id number] Univers 12:58:26 13:13:26 Visit Tushar Lan [employer] OFFICER 350.1.13. 10 ity of [facility]ION[facility] 4.2.7.2.686 Jamal as MATERNAL [id number] [facility] & [address] 2020-05-21 2020-05-21 Outpatient R RIKY [facility] [id number] Univers 13:00:00 13:00:00 TUSHAR rizo o f [facility] 2020-05-19 2020-05-19 Routine [facility] 1.2.938.586 [id number] Univers 12:45:26 13:11:32 Ernesto Rosario COMMISS[employer] OFFICER 350.1.13.10 i ty of Visit REGIONAL 4.2.7.2.686 Jamal as MATERNAL [id number] [address] 2020-05-19 2020-05-19 Outpatient R MADONNA [facility] [id number] Univers 12:45:00 12:45:00 ERNESTO rizo [facility] 2020-05-19 2020-05-19 Patient Tim [facility] 1.2.840.114 [id number] Univers 00:00:00 00:00:00 Outreach Jeffery PRIMARY 350.1.13.10 i ty of [facility] 4.2.7.2.686 [place] [id number] [address] 2020-04-23 2020-04-23 Routine [facility]DR[facility] 1.2.558.529 [id number] Univers 15:54:18 16:11:16 Ernesto Rosario COMMISS[employer] OFFICER 350.1.13.10 i ty of Visit REGIONAL 4.2.7.2.686 Jamal as MATERNAL [id number] [facility] & CHILD [address] [place] [address] 2020-04-23 2020-04-23 Outpatient R MADONNA [facility] [id number] Univers 16:00:00 16:00:00 ERNESTO rizo [facility] 2020-04-14 2020-04-14 Outpatient Angelica PEACOCK [facility] [id number] Univers 12:45:00 12:45:00 ERNESTO rizo [facility] 2020-04-09 2020-04-09 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[facility] 1.2 .840.114 [id number] Univers 13:55:54 14:54:41 Visit Rahda Charlton COMM[employer] OFFICER 350.1.13.10 ity of [facility]ION[facility] 4.2.7.2.686 Jamal as MATERNAL [phone] Med ical & CHILD 369 [facility] 2020-04-09 2020-04-09 Outpatient P [facility] [id number] Univers 14:00:00 14:00:00 ity of [facility] 2020-04-07 2020-04-07 Telephone [facility]DR[facility] 1.2.840.114 [id number] Univers 00:00:00 00:00:00 Ernesto Rosario COMMISS[employer] OFFICER 350.1.13.10 it y of [facility] 4.2.7.2.686 Jamal as MATERNAL [phone] Med ical & CHILD [address] [place] [address] 2020-03-26 2020-03-26 Orders Doctor MOSHE 1.2.840.114 [id number] Univers 00:00:00 00:00:00 Only Unassigned, TEDDY 350.1.13.10 ity of [place] [facility] 4.2.7.2.686 Jamal as [phone] [address] 2020-03-17 2020-03-17 Routine [facility] 1.2.247.377 [id number] Univers 12:49:30 13:34:04 Ernesto Rosario COMMISS[employer] OFFICER 350.1.13.10 i ty of Visit REGIONAL 4.2.7.2.686 Jamal as MATERNAL [id number] [facility] [address] [place] [address] 2020-03-17 2020-03-17 Outpatient R MADONNA [facility] [id number] Univers 13:00:00 13:00:00 ERNESTO rizo [facility] 2020-02-25 2020-02-25 Telephone [facility]DR[facility] 1.2.840.114 [id number] Univers 00:00:00 00:00:00 Ernesto Rosario COMMISS[employer] OFFICER 350.1.13.10 it y of [facility] 4.2.7.2.686 Jamal as MATERNAL [id number] [facility] CH[facility] [address] [place] [address] 2020-02-18 2020-02-18 [facility] [id number] Univers 14:45:00 14:45:00 ERNESTOSHARMILA rizo [facility] 2020-02-18 2020-02-18 Routine 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 1.2.840.114 [id number] Univers 00:00:00 00:00:00 Tushar Lund COMMISS[employer]CE OFFICER 350.1.13.10 ity of [facility] 4..7.2.686 Jamal as MATERNAL [id number] Med ical & CHILD [address] [place] [address] 2020-02-03 2020-02-03 Refill Doctor [facility] 1.2.840.114 [id number] Univers 00:00:00 00:00:00 Unassigned, COMMISS[employer]ED [employer]ENCE [employer]CE OFFICER 350.1.13.10 ity of [place] [facility] 4..7.2.686 Jamal as MATERNAL [phone] Med ical & CHILD [address] [place] [address] 2020-01-21 2020-01-21 Routine [facility] 1.2.245.101 [id number] Univers 15:20:02 16:02:58 Ernesto N COMMISSIONED DEFENCE [employer]CE OFFICER 350.1.13.10 i ty of Visit [facility] 4.2.7.2.686 Jamla as MATERNAL [phone] Med ical & CHILD [address] [place] [address] 2020-01-21 2020-01-21 [facility] [id number] Univers 15:30:00 15:30:00 ERNESTO blancaspenser [facility] 2020-01-18 2020-01-18 Refill Doctor [facility] 1.2.840.114 [id number] Univers 00:00:00 00:00:00 Unassigned, COMMISSIONED [employer]ENCE [employer]CE OFFICER 350.1.13.10 ity of [place] [facility] 4.2.7.2.686 Jamal as MATERNAL [id number] Med ical & CHILD [address] [facility] 2020-01-09 2020-01-09 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, [facility] 1.2 .840.114 [id number] Univers 14:52:31 15:17:04 Visit Shereen Travis COMMISSIONED DEFENCE [employer]CE OFFICER 350.1.13.10 ity of [facility] 4.2.7.2.686 Ajmal as MATERNAL [id number] [facility] ical & CHILD 369 [facility] 2020-01-09 2020-01-09 Outpatient P [facility] [id number] Univers 14:45:00 14:45:00 ity of [facility] 2020-01-09 2020-01-09 Abstract Madonna [facility] 1.2.840.114 [id number] Univers 00:00:00 00:00:00 Ernesto Rosario COMMISSIONED [employer] OFFICER 350.1.13.10 it y of [facility] 4.2.7.2.686 Jamal as MATERNAL [phone] [facility] CHILD [address] [place] [address] 2019-12-27 2019-12-27 Telephone Riky [facility] 1.2.840.114 [id number] Univers 00:00:00 00:00:00 Tushar Lund COMMISS[employer]CE OFFICER 350.1.13.10 ity of [facility] 4.2.7.2.686 Jamal as MATERNAL [id number] [facility] CHILD [address] [place] [address] 2019-12-26 2019-12-26 Initial Madonna [facility] 1.2.015.362 [id number] Univers 13:39:00 15:06:17 Ernesto Rosario COMMISS[employer]ED [employer]CE OFFICER 350.1.13.10 i ty of Visit [facility] 4.2.7.2.686 Jamal as MATERNAL [phone] [facility] CHILD [address] [place] [address] 2019-12-26 2019-12-26 Outpatient R MADONNA [facility] [id number] Univers 13:45:00 13:45:00 ERNESTO rizo of [facility] 2019-12-26 2019-12-26 Orders Doctor [facility] 1.2.840.114 [id number] Univers 00:00:00 00:00:00 Only Unassigned, TEDDY 350.1.13.10 ity of [place] [facility] 4.2.7.2.686 Jamal as [id number] [address] 2019-12-09 2019-12-09 Outpatient R AKINSIPE, [facility] [id number] Univers 13:15:00 13:15:00 TUSHAR rizo o f [facility] 2019-10-28 2019-10-28 Telephone Oliverpe, [facility] 1.2.840.114 [id number] 00:00:00 00:00:00 Tushar C COMM[employer] OFFICER 350.1.13.10 REGIONAL 4.2.7.2.686 MATERNAL [phone] & CHILD [address] [place] [address] 2019-10-28 2019-10-28 Telephone Akinsipe, [facility] 1.2.840.114 [id number] [facility] 00:00:00 00:00:00 Tushar C COMMISSIONED DEFENCE [employer]CE OFFICER 350.1.13.10 ity of [facility] 4.2.7.2.686 Jamal as MATERNAL [id number] [facility] & CHILD [address] [place] [address] 2019-10-09 2019-10-09 Office Akinsipe, [facility] 1.2.034.250 [id number] [facility] 08:16:20 08:48:41 Visit Tushar C COMMISSIONED [employer]ENCE [employer]CE OFFICER 350.1.13.10 ity of [facility] 4.2.7.2.686 Jamal as MATERNAL [id number] [facility] & [address] 2019-10-09 2019-10-09 Office Akinsipe, [facility] 1.2.412.443 [id number] 08:16:20 08:48:41 Visit Tushar C COMMISS[employer] OFFICER 350.1.13.10 REGIONAL 4.2.7.2.686 MATERNAL [id number] & CHILD [address] [place] [address] 2019-10-09 2019-10-09 Outpatient R AKINSIPE, [facility] [id number] Univers 08:15:00 08:15:00 TUSHAR rizo o f [facility] 2019-10-07 2019-10-07 Outpatient R AKINSIPE, [facility] [id number] Univers 10:30:00 10:30:00 TUSHAR blancay o f [facility] 2019-09-27 2019-09-27 [facility] 1.2.840.114 [id number] Univers 00:00:00 00:00:00 Tushar C COMMISSIONED [employer]ENCE [employer]CE OFFICER 350.1.13.10 ity of [facility] 4.2.7.2.686 Jamal as MATERNAL [id number] Med ical & CHILD 107 [facility] 2019-09-25 2019-09-25 Refill [facility] 1.2.447.668 [id number] Univers 00:00:00 00:00:00 Tushar C COMMISSIONED DEFENCE [employer]CE OFFICER 350.1.13.10 ity of [facility] 4.2.7.2.686 Jamal as MATERNAL [id number] Med ical & CHILD 107 [facility] 2019-08-19 2019-08-19 Telephone [facility] 1.2.840.114 [id number] [facility] 00:00:00 00:00:00 Tushar C COMMISSIONED DEFENCE FORCE OFFICER 350.1.13.10 ity of [facility] 4.2.7.2.686 Jamal as MATERNAL [id number] Med ical & CHILD 107 [facility] 2019-08-16 2019-08-16 Case [facility] 1.2.934.259 [id number] Univers 00:00:00 00:00:00 Management Selam COMMISS[employer]ED [employer] OFFICER 350.1.13.10 ity of [facility] 4.2.7.2.686 Jamal as MATERNAL [id number] Med ical & CHILD [address] [place] 2019-08-15 2019-08-15 Office Provider, [facility] 1 .2.840.114 [id number] Univers 10:43:37 11:14:30 Visit Selam Alves COMMISSIONED [employer]CE OFFICER 350.1.13.10 ity of [facility] 4.2.7.2.686 Jamal as MATERNAL [id number] Med ical & CHILD 107 [facility] 2019-08-15 2019-08-15 Outpatient R JOSELYN [facility] [id number] Univers 10:45:00 10:45:00 SELAM lauren [facility] 2019-07-23 2019-07-23 Telephone [facility] 1.2.840.114 [id number] Univers 00:00:00 00:00:00 Tushar C COMMISSIONED [employer] OFFICER 350.1.13.10 ity of [place] 4.2.7.2.686 Jamal as MATERNAL [id number] [facility] & CHILD [address] [place] [address] 2019-07-19 2019-07-19 Orders Doctor MOSHE 1.2.840.114 [id number] Univers 00:00:00 00:00:00 Only Unassigned, TEDDY 350.1.13.10 ity of [facility] 4.2.7.2.686 Jamal as [id number] [address] 2019-07-08 2019-07-08 Telemedici [facility] 1.2.840.114 [id number] Univers 07:39:54 09:35:12 ne Visit Tushar C COMMISS[employer] OFFICER 350.1.13.10 ity of [facility] 4.2.7.2.686 Jamal as MATERNAL [id number] [address] 2019-07-08 2019-07-08 Outpatient R RIKY [facility] [id number] Univers 09:30:00 09:30:00 TUSHAR ity o f [facility] 2019-07-05 2019-07-05 Telephone [facility] 1.2.840.114 [id number] Univers 00:00:00 00:00:00 Tushar C COMMISSIONED [employer] OFFICER 350.1.13.10 ity of [facility] 4.2.7.2.686 Jamal as MATERNAL [id number] [address] 2019-04-29 2019-04-29 Telephone [facility] 1.2.840.114 [id number] Univers 00:00:00 00:00:00 Tushar C COMMISSIONED [employer]ENCE [employer] OFFICER 350.1.13.10 ity of [facility] 4.2.7.2.686 Jamal as MATERNAL [phone] [address] 2019-04-01 2019-04-01 Telephone [facility] 1.2.840.114 [id number] Univers 00:00:00 00:00:00 Tushar C COMMISSIONED [employer] OFFICER 350.1.13.10 ity of [facility] 4.2.7.2.686 Jamal as MATERNAL [id number] [facility] ical & CHILD [address] [place] [address] 2019 2019 Office JOSH Lan 1.2.430.462 [id number] Univers 10:39:31 11:16:49 Visit Tushar Lund COMMISS[employer] OFFICER 350.1.13.10 ity of [facility] 4.2.7.2.686 Jamal as MATERNAL [phone] [facility] ical & CHILD [address] [place] [address] 2019 2019 Orders Doctor MOSHE 1.2.840.114 [id number] Univers 00:00:00 00:00:00 Only Unassigned, TEDDY 350.1.13.10 ity of [place] [facility] 4.2.7.2.686 Jamal as [id number] [facility] [address] [place] 2018-12-20 2018-12-20 Office Akinsipe, 1.2.840.8 [id number] Univers 09:37:41 10:39:11 Visit Tushar Lund 13482.1.1 i ty of 3.104.2.7 [place] .3.479863 Medica l .8 [place] 2018-12-20 2018-12-20 Telephone Akinjohnathan, 1.2.840.8 [id number] Univers 00:00:00 00:00:00 Tushar Lund 86158.1.1 i ty of 3.104.2.7 [place] .3.601338 Medica l .8 [place] 2018-12-20 2018-12-20 Orders Doctor 1.2.840.0 [id number] Univers 00:00:00 00:00:00 Only Unassigned, 30969.1.1 ity of [place] 3.104.2.7 [place] .3.071305 Medica l .8 [place] Results Test Description Test Time Test Comments [...] L [Au tomated message] The system which [email or web address] nerated this result transmit brendan reference range: [...] g/dL 31.6-35.1 L RDW-SD (test code = 32682-9) 38.7 fL 39.0-49.9 L RDW-CV (test code = 788-0) 15.1 % 12.0-15.5 PLT (test code = 777-3) 338 See_Comment [Au tomated message] The system which [email or web address] nerated this result transmit brendan reference range: 166 - 35 8 10*3/?L. The reference range was not used to interpret th is result as normal/abnormal . MPV (test code = 17687-5) 10.1 fL 9.5-12.9 NRBC/100 WBC (test code = 0.0 See_Comment [ Automated message] The [id number]) system which [email or web address] nerated this result transmit brendan reference range: 0.0 - 10 .0 /100 WBCs. The reference r yancy was not used to interpr et this result as normal/abnor mal. NRBC x10^3 (test code = See_Comment [Au tomated message] The [id number]) system which [email or web address] nerated this result transmit brendan reference range: 10*3/?L. The reference range was not u sed to interpret this result as normal/abnormal . GRAN MAT (NEUT) % (test code 72.3 % = 770-8) IMM GRAN % (test code = 0.90 % [id number]) LYMPH % (test code = 736-9) 18.3 % MONO % (test code = 5905-5) 5.8 % EOS % (test code = 713-8) 2.5 % BASO % (test code = 706-2) 0.2 % GRAN MAT x10^3(ANC) (test 7.24 10*3/uL 1.88-7.09 H code = [id number]) IMM GRAN x10^3 (test code = 0.09 10*3/uL 0.00-0.06 H [id number]) LYMPH x10^3 (test code = 1.83 10*3/uL 1.32-3.29 731-0) MONO x10^3 (test code = 0.58 10*3/uL 0.33-0.92 742-7) EOS x10^3 (test code = 0.25 10*3/uL 0.03-0.39 711-2) BASO x10^3 (test code = 0.01-0.07 704-7) Lab Interpretation (test Abnormal code = 54728-0) [facility]. METABOLIC PANEL (86507)2022-07-25 03:39:13 Test Item Value Reference Range Interpretation Comments NA (test code = 138 mmol/L 135-145 [id number]) K (test code = 3.1 mmol/L 3.5-5.0 L 4542916913) CL (test code = 109 mmol/L 98-108 H 2218860281) CO2 TOTAL (test code = 21 mmol/L 23-31 L 0481023495) AGAP (test code = 8 2-16 8125788634) BUN (test code = 12 mg/dL 7-23 6151082486) GLUCOSE (test code = 100 mg/dL 70-110 5229804663) CREATININE (test code = 0.44 mg/dL 0.50-1.04 L 4678520908) TOTAL BILI (test code = 1.1 mg/dL 0.1-1.7 6284898078) CALCIUM (test code = 8.1 mg/dL 8.6-10.6 L 2192505099) T PROTEIN (test code = 6.1 g/dL 6.3-8.2 L 5374714812) ALBUMIN (test code = 2.9 g/dL 3.5-5.0 L 8896013825) ALK PHOS (test code = 101 U/L 34-122 3164392145) ALTv (test code = 11 U/L 5-35 1742-6) AST(SGOT) (test code = 19 U/L 13-40 6473859122) eGFR (test code = 182.3 mL/min/1.73m2 3328211863) ARGENIS (test code = ARGENIS) Association of [...] tests). Lab Interpretation Abnormal (test code = 43525-4) [facility] WITH [id number] 03:29:32 Test Item Value Reference Range Interpretation Comments WBC (test code = 9.87 See_Comment [Rnhlkxomr 2296-2) message] The sy stem which generated this [...] (test code = 38.3 fL 39.0-49.9 L 64335-8) RDW-CV (test code = 15.1 % 12.0-15.5 788-0) PLT (test code = 279 See_Comment [Automated 777-3) message] The sy stem which generated this result transmitted reference range : 166 - 358 10*3/ ?L. The reference r yancy was not used to interpret this result as normal/abnormal . MPV (test code = 10.3 fL 9.5-12.9 94310-7) NRBC/100 WBC (test 0.0 See_Comment [Automat ed code = 6425304072) message] The system which generated this result transmitted reference range : 0.0 - 10.0 /100 WBCs. The refer ence range was not u sed to interpret th is result as normal/abnormal . NRBC x10^3 (test code See_Comment [Auto mated = 3454167406) message] The s ystem which generated this result transmitted reference range : 10*3/?L. The reference range was not used to interpret this result as normal/abnormal . GRAN MAT (NEUT) % 80.7 % (test code = 770-8) IMM GRAN % (test code 0.70 % = 5487547251) LYMPH % (test code = 11.3 % 736-9) MONO % (test code = 4.9 % 5905-5) EOS % (test code = 2.2 % 713-8) BASO % (test code = 0.2 % 706-2) GRAN MAT x10^3(ANC) 7.96 10*3/uL 1.88-7.09 H (test code = 2982809566) IMM GRAN x10^3 (test 0.07 10*3/uL 0.00-0.06 H code = 7448092232) LYMPH x10^3 (test code 1.12 10*3/uL 1.32-3.29 L = 731-0) MONO x10^3 (test code 0.48 10*3/uL 0.33-0.92 = 742-7) EOS x10^3 (test code = 0.22 10*3/uL 0.03-0.39 711-2) BASO x10^3 (test code 0.01-0.07 = 704-7) Lab Interpretation Abnormal (test code = 35532-1) [facility] [id number] 00:24:07 Test Item Value Reference Range Interpretation Comments RHIG CANDIDATE? No- see comment Patient i s not a (test code = candidate for R [facility]- 5188) Patient is Rh Positive.Perfor med at [facility] Laboratory Services - [facility] Blood [address] [place], [place] [id number] Free: [phone] A No. [id number] [facility] with [id number] 11:22:51 Test Item Value Reference Range Interpretation Comments WBC (test code = 21.75 See_Comment H [Automated 6894-2) message] The system which generated this result transmit brendan reference range : 4.30 - 11.10 10*3/?L. The reference range was not used to interpret this result as normal/abnormal . RBC (test code = 3.93 See_Comment [Automated 607-2) message] The system which generated this result [...] (test code = 37.8 fL 39.0-49.9 L 41069-2) RDW-CV (test code = 14.6 % 12.0-15.5 788-0) PLT (test code = 216 See_Comment [Automated 777-3) message] The system which generated this result transmit brendan reference range : 166 - 358 10*3/ ?L. The reference range was not u sed to interpret th is result as normal/abnormal . MPV (test code = 10.8 fL 9.5-12.9 37064-4) NRBC/100 WBC (test 0.0 See_Comment [Automat ed code = 6307269596) message] The system which generated this result transmit brendan reference range : 0.0 - 10.0 /100 WBCs. The reference range was not used to interpret this result as normal/abnormal . NRBC x10^3 (test code See_Comment [Auto mated = 4733004355) message] The system which generated this result transmit brendan reference range : 10*3/?L. The reference range was not used to interpret this result as normal/abnormal . SEG % (test code = 83 % 33-76 H 93708-1) BAND % (test code = 9 % 0-1 H 13850-7) LYMPH % (test code = 8 % 14-54 L 99166-4) ANC (test code = 20.01 10*3/uL 1.88-7.09 H 753-4) Lab Interpretation Abnormal (test code = 17298-9) [facility] with [id number] 11:22:51 Test Item Value Reference Range Interpretation [...] (test code = 37.8 fL 39.0-49.9 L 93674-6) RDW-CV (test code = 14.6 % 12.0-15.5 788-0) PLT (test code = 216 See_Comment [Automated 777-3) message] The system which generated this result transmit brendan reference range : 166 - 358 10*3/ ?L. The reference range was not u sed to interpret th is result as normal/abnormal . MPV (test code = 10.8 fL 9.5-12.9 12812-7) NRBC/100 WBC (test 0.0 See_Comment [Automat ed code = 0216168604) message] The system which generated this result transmit brendan reference range : 0.0 - 10.0 /100 WBCs. The reference range was not used to interpret this result as normal/abnormal . NRBC x10^3 (test code See_Comment [Auto mated = 3102382182) message] The system which generated this result transmit brendan reference range : 10*3/?L. The reference range was not used to interpret this result as normal/abnormal . SEG % (test code = 83 % 33-76 H 04794-9) BAND % (test code = 9 % 0-1 H 50047-1) LYMPH % (test code = 8 % 14-54 L 54759-3) ANC (test code = 20.01 10*3/uL 1.88-7.09 H 753-4) Lab Interpretation Abnormal (test code = 44137-7) [facility] URINALYSIS W SPECIFIC [id number] 19:23:00 Test Item Value Reference Range Interpretation [...] U APPEAR (test code = 3267) . [facility] URINALYSIS W SPECIFIC [id number] 19:48:00 Test Item Value Reference Range Interpretation [...] U APPEAR (test code = 3267) . [facility] URINALYSIS W SPECIFIC [id number] 18:04:00 Test Item Value Reference Range Interpretation [...] U APPEAR (test code = 3267) . [facility] with [id number] 04:55:42 Test Item Value Reference Range Interpretation Comments WBC (test code = 12.52 See_Comment H [Automated 0076-2) message] The sy stem which generated this result transmitted reference range : 4.30 - 11.10 10*3/?L. The reference range was not used to interpret this result as normal/abnormal . RBC (test code = 4.28 See_Comment [Automated 305-8) message] The sy stem which generated this [...] RDW-SD (test code = 39.8 fL 39.0-49.9 35156-9) RDW-CV (test code = 13.8 % 12.0-15.5 788-0) PLT (test code = 287 See_Comment [Automated 777-3) message] The sy stem which generated this result transmitted reference range : 166 - 358 10*3/ ?L. The reference r yancy was not used to interpret this result as normal/abnormal . MPV (test code = 11.0 fL 9.5-12.9 16082-9) NRBC/100 WBC (test 0.0 See_Comment [Automat ed code = 3373642688) message] The system which generated this result transmitted reference range : 0.0 - 10.0 /100 WBCs. The refer ence range was not u sed to interpret th is result as normal/abnormal . NRBC x10^3 (test code See_Comment [Auto mated = 8649260968) message] The s ystem which generated this result transmitted reference range : 10*3/?L. The reference range was not used to interpret this result as normal/abnormal . GRAN MAT (NEUT) % 68.4 % (test code = 770-8) IMM GRAN % (test code 1.10 % = 0410454530) LYMPH % (test code = 19.6 % 736-9) MONO % (test code = 6.5 % 5905-5) EOS % (test code = 3.8 % 713-8) BASO % (test code = 0.6 % 706-2) GRAN MAT x10^3(ANC) 8.56 10*3/uL 1.88-7.09 H (test code = 9979803675) IMM GRAN x10^3 (test 0.14 10*3/uL 0.00-0.06 H code = 1601441656) LYMPH x10^3 (test code 2.46 10*3/uL 1.32-3.29 = 731-0) MONO x10^3 (test code 0.82 10*3/uL 0.33-0.92 = 742-7) EOS x10^3 (test code = 0.47 10*3/uL 0.03-0.39 H 711-2) BASO x10^3 (test code 0.07 10*3/uL 0.01-0.07 = 704-7) Lab Interpretation Abnormal (test code = 60017-5) [facility] [id number] 04:31:20 Test Item Value Reference Range Interpretation Comments GLUC 1 HR (test code = 3003832799) 72 mg/dL 120-170 L Lab Interpretation (test code = Abnormal 64723-8) [facility] URINALYSIS W SPECIFIC [id number] 20:18:00 Test Item Value Reference Range Interpretation [...] U APPEAR (test code = 3267) . [facility] URINALYSIS W SPECIFIC [id number] 20:18:00 Test Item Value Reference Range Interpretation [...] U APPEAR (test code = 3267) . [facility] URINALYSIS W SPECIFIC [id number] 17:24:00 Test Item Value Reference Range Interpretation [...] U APPEAR (test code = 3267) . [facility] URINALYSIS W SPECIFIC [id number] 16:03:00 Test Item Value Reference Range Interpretation [...] U APPEAR (test code = 3267) . [facility] URINALYSIS W SPECIFIC [id number] 17:19:00 Test Item Value Reference Range Interpretation [...] U APPEAR (test code = 3267) . [facility] URINALYSIS W SPECIFIC [id number] 17:19:00 Test Item Value Reference Range Interpretation [...] U APPEAR (test code = 3267) . [facility] URINALYSIS W SPECIFIC [id number] 16:39:00 Test Item Value Reference Range Interpretation [...] POCT U APPEAR (test code = 3267) [facility] URINALYSIS W SPECIFIC [id number] 19:37:00 Test Item Value Reference Range Interpretation [...] U APPEAR (test code = 3267) . [facility] URINALYSIS W SPECIFIC [id number] 15:33:00 Test Item Value Reference Range Interpretation [...] U APPEAR (test code = 3267) . [facility] [id number] 14:34:00 Test Item Value Reference Range Interpretation Comments POCT PREG (test code = 1605) Positive On board controls acceptable with C Yes Line (test code = 3574) POCT PREG LOT # (test code = 3575) POCT PREG TEST DATE (test code = 3576) [facility] URINALYSIS W/O SPECIFIC [id number] 14:34:00 Test Item Value Reference Range Interpretation [...] code = 3257) negative Negative - Negative [facility] [id number] 14:34:00 Test Item Value Reference Range Interpretation Comments POCT PREG (test code = 1605) Positive On board controls acceptable with C Yes Line (test code = 3574) POCT PREG LOT # (test code = 3575) POCT PREG TEST DATE (test code = 3576) [facility] URINALYSIS W/O SPECIFIC [id number] 14:34:00 Test Item Value Reference Range Interpretation [...] code = 3257) negative Negative - Negative [facility] [id number] 14:31:00 Test Item Value Reference Range Interpretation Comments POCT PREG (test code = 1605) Positive On board controls acceptable with C Yes Line (test code = 3574) POCT PREG LOT # (test code = 3575) POCT PREG TEST DATE (test code = 3576) [facility] [id number] 18:26:00 Test Item Value Reference Range Interpretation Comments POCT PREG (test code Negative = 1605) On board controls Yes acceptable with C Line (test code = 3574) POCT PREG LOT # (test code = 3575) POCT PREG TEST DATE (test code = 3576) ARGENIS (test code = ARGENIS) accurate development and interpretation of all internal controls [facility]
[2022-11-13] MEDS ORDERED: KETOROLAC 30 MG/ML INJ ONE (17:08)
[2022-11-13 17:22] VITALS: BP 123/79; TEMP 98.5; O2SAT 100
== END 2022-11-13 17:05 | disposition home or self-care (01) ==
LOC: ER 16:43
DX: R51.9 Headache, unspecified (principal); I10 Essential (primary) hypertension
CPT/HCPCS: 96372; 99283

== ENCOUNTER 2022-12-12 17:57 | Emergency (ER) | payer SELFPAY ==
--- NOTE | 2022-12-12 18:14 | EDPHYS ---
Physician Documentation [facility] Name: Sil Gaytan Age: 22 yrs Sex: Female : 2000 Arrival Date: 12/12/2022 Time: 17:57 Bed IW4 Private MD: ED Physician Elvis Garza HPI: 12/12 18:16 This 22 yrs old Female presents to ER via Unassigned with complaints of Vomiting. ms3 18:16 -year-old female with no past medical history presents for vomiting that began this ms3 morning. Patient states she called into work and now needs a doctor's note. Patient states she has not vomited since this morning. Patient denies pain, fevers. Patient denies any alleviating or inciting factors.. Historical: - Allergies: 18:31 Codeine; nj1 18:31 PENICILLINS; nj1 18:31 Prednisone; nj1 - PMHx: 18:31 Asthma; Hypertensive disorder; nj1 - PSHx: 18:31 ; nj1 - Immunization history:: Client reports having NOT received the Covid vaccine. - Social history:: Smoking status: Patient denies any tobacco usage or history of. Patient uses street drugs, marijuana. ROS: 18:16 Constitutional: Negative for fever, and chills. Neck: Negative for injury, pain, and ms3 swelling, Cardiovascular: Negative for chest pain, and palpitations. Respiratory: Negative for shortness of breath, cough, wheezing, and pleuritic chest pain, 18:16 MS/Extremity: Negative for injury and deformity, Skin: Negative for injury, rash, and discoloration, 18:16 Abdomen/GI: Positive for vomiting, Negative for abdominal pain, 18:16 All other systems are negative, Exam: 18:16 Constitutional: This is a well developed, well nourished patient who is awake, alert, ms3 and in no acute distress. Head/Face: Normocephalic, atraumatic. Neck: Trachea midline, no cervical lymphadenopathy. Supple, full range of motion without nuchal rigidity, or vertebral point tenderness. No Meningismus. Chest/axilla: Normal chest wall appearance and motion. Nontender with no deformity. Cardiovascular: Regular rate and rhythm with a normal S1 and S2. No gallops, murmurs, or rubs. Normal PMI, no JVD. No pulse deficits. Respiratory: Lungs have equal breath sounds bilaterally, clear to auscultation and percussion. No rales, rhonchi or wheezes noted. No increased work of breathing, no retractions or nasal flaring. Abdomen/GI: Soft, non-tender, with normal bowel sounds. No distension or tympany. No guarding or rebound. No evidence of tenderness throughout. Skin: Warm, dry with normal turgor. Normal color with no rashes, no lesions, and no evidence of cellulitis. MS/ Extremity: Pulses equal, no cyanosis. Neurovascular intact. Full, normal range of motion. Vital Signs: 18:29 BP 135 / 89; Pulse 107; Resp 16; Temp 98.1; Pulse Ox 100% ; Weight 77.11 kg; Height 5 nj1 ft. 6 in. ; Pain 0/10; 18:29 Body Mass Index 27.44 (77.11 kg, 167.64 cm) nj1 18:29 Pain Scale: Adult nj1 MDM: 18:14 Patient medically screened. ms3 18:16 Differential diagnosis: Nonspecific abd pain, viral gastroenteritis, Vomiting. Data ms3 reviewed: vital signs, nurses notes, and as a result, I will discharge patient. Counseling: I had a detailed discussion with the patient and/or guardian regarding the historical points, exam findings, and any diagnostic results supporting the discharge/admit diagnosis, the need for outpatient follow up, to return to the emergency department if symptoms worsen or persist or if there are any questions or concerns that arise at home. Special discussion: I discussed with the patient/guardian in detail that at this point there is no indication for admission to the hospital. It is understood, however, that if the symptoms persist or worsen the patient needs to return immediately for re-evaluation. ED course: Discussed physical exam findings with patient. Patient to follow-up with her primary care physician in 2 to 3 days. Patient understands agrees with plan. All questions were answered. Return precautions discussed include worsening symptoms, or any other concerns. Administered Medications: No medications were administered Disposition Summary: 12/12/22 18:14 Discharge Ordered Notes: Location: Home ms3 Condition: Stable ms3 Diagnosis - Vomiting ms3 Followup: ms3 - With: Nacho Lauren DO - When: 2 - 3 days - Reason: Recheck today's complaints Discharge Instructions: - Discharge Summary Sheet ms3 - Vomiting, Adult ms3 Forms: - Work release form ms3 - Medication Reconciliation Form ms3 - Thank You Letter ms3 - Antibiotic Education ms3 - Prescription Opioid Use ms3 - Patient Portal Instructions ms3 - Leadership Thank You Letter ms3 Signatures: Elvis Garza DO DO ms3 Yelena Flowers, RN RN nj1
--- OUTSIDE RECORDS SUMMARY | 2022-12-12 18:20 | XMS REPORT | Continuity of Care Document ---
:2000 Author Organization [facility] t Address [address] [place] [address] Care Team Providers Name Role Phone TUSHAR LAN Primary Care Physician Unavailable KASEY BLANCO Attending Clinician Unavailable KASEY BLANCO Attending Clinician Unavailable TUSHAR LAN Attending Clinician Unavailable Riky Tushar JASON Attending Clinician [phone] MOSHE AGOSTO Attending Clinician Unavailable Visit, [facility] Attending Clinician Unavailable HETAL NORRIS Attending Clinician Unavailable Hetal Norris MD Attending Clinician aPtt Nova RN Attending Clinician Unavailable AUSTIN ARZOLA Attending Clinician Unavailable Austin Arzola MD Attending Clinician Doctor Unassigned, [place] Attending Clinician Unavailable Antonette Solano CNM Attending Clinician ANTONETTE SOLANO Attending Clinician Unavailable SHEREEN TRAVIS Attending Clinician Unavailable Risk, Qch-Opbyg-Tb/High Attending Clinician Unavailable Shereen Travis MD Attending Clinician Ultrasound, Ang-Mfm Attending Clinician Unavailable Edwin Pacheco Attending Clinician EDWIN CAGE Attending Clinician Unavailable David Cooper DO Attending Clinician SARA SNYDER Attending Clinician Unavailable SARA SNYDER Attending Clinician Unavailable Provider, Ang-Rmchp Temp Attending Clinician Unavailable Ramo QUINONEZ, Niki Dominguez Attending Clinician NIKI RALPH Attending Clinician Unavailable JAM SAUNDERS Attending Clinician Unavailable CLINTON CRUMP Attending Clinician Unavailable Madonna QUINONEZ, Ernesto Rosario Attending Clinician ERNESTO PEACOCK Attending Clinician Unavailable Rosio Pastor Attending Clinician Dylan Prieto MD S Attending Clinician Maria PALACIOS, SERVICING MANAGER, R Attending Clinician Fer, Ang-Rmchp Attending Clinician Unavailable Jeffery Dumont DO [...] Effective Date Expiration Date Daniel del angel [facility] [id number] 2021 00:00:00 Problems Condition Condition Condition Status Onset Resolution Last Treating Co mments Source Name Details Category Date Date Treatment Clinician Date Well woman Well woman Disease Active U nivers exam exam 7-12 ity of 00:00: [facility] Routine Routine Disease Active Univers 6-16 [place] [facility] Disease Active Uni vers induced induced 6-02 ity of hypertensi hypertens[place] 00[place], 00 Medical antepartum antepartum Br anch Disease Active U nivers state state 6-02 ity of 00:00: [place] [facility] Obesity Obesity Disease Active Univers (BMI (BMI 5-28 ity of 30-39.9) 30-39.9) 00:00: [facility] Postoperat Postoperat Disease Active U nivers chris fever chris fever 5-28 ity of 00:00: [place] [facility] Disease Active Univers premature premature 5-25 ity of rupture of rupture of [place] membranes membranes 00 [facility] (PPROM) (PPROM) [place] with onset with onset of labor of labor within 24 within 24 hours of hours of rupture in rupture in third third trimester, trimester, antepartum antepartum 36 weeks 36 weeks Disease Active Unive rs gestation gestation 5-25 ity of of of 00:00: [place] 00 [facility] Liveborn Liveborn Disease Active Unive rs infant, of infant, of 5-25 it y of [place] , , 00 Me dical born in born in [place] [facility] hospital by by delivery delivery UTI in UTI in Disease Active Overview: Univer s 5-24 Formattin i ty of 00:00: g of this 00 note Medical might be Branch different from the original. Per meds sent and patient notified Supervisio Supervisio Disease Active U david n of n of 3-02 ity of high-risk high-risk 00:[place] [facility] Multiparit Multiparit Disease Active U nivtomas y y 3-02 ity of 00:00: [place] 00 Medical Branch History of History of Disease Active 2021-02 U nivers pre-eclamp pre-eclamp 0-27 it y of [place] in 00:00: [place] prior prior 00 Medical , , Br anch currently currently Disease Active 2021-02 Uni vers related related 0-27 ity of nausea, nausea, 00:00: [place] antepartum antepartum 00 Me dical Branch Declines Declines Disease Active 2021-02 Unive rs flu flu 0-27 ity of vaccine vaccine 00:00: [place] 00 Medical Branch History of History of Disease Active 2021-02 U nivers anxiety anxiety 0-27 ity of and and 00:00: [place] depression depression 00 Pa dical Branch Missed Missed Disease Active 2021-02 Univers menses menses 0-13 ity of 00:00: [place] 00 Medical Branch History of History of Disease Active 2021-02 U nivers 0-13 ity of delivery, delivery, 00:00: Inessa taylor currently currently 00 Medi lottie Branch Other Other Disease Active Univers general general 8-02 ity of counseling counseling 00:00[place] and advice and advice 00 Pa dical for for Branch contracept contracept chris chris management management Elevated Elevated Disease Active Unive rs blood blood 8-02 ity of pressure pressure 00:00: [place] reading reading 00 Medical without without [...] CODEINE DRUG Active COUGH 2019-02 Univers INGREDI 0-29 ity of 00:00: [place] 00 Medical [...] Comments Source ASSERTION 2021-11-25 University of 00:00:00 [place] [facility] History SDOH University o f Alcohol Std Drinks [place] [facility] History SDOH University o f Alcohol Binge [place] Medic al Branch History [facility] University o f Alcohol Comment [place] Med ical Branch Sexual orientation [facility] Exposure to 2022-07-11 2022-07-21 Not sure University of SARS-CoV-2 (event) 00:00:00 10:35:00 [facility] History of Social 2021-12-23 2021-12-23 Univers ity of function 00:00:00 00:00:00 [facility] Alcohol intake 2020-06-23 2020-06-23 Lifetime University of 00:00:00 00:00:00 non-drinker [place] Medical (finding) Branch Tobacco use and 2018-12-20 2018-12-20 Smokeless Universit y of exposure 00:00:00 00:00:00 tobacco non-user [facility] dical Branch History SDOH 2018-12-20 2018-12-20 1 University o f Alcohol Frequency 00:00:00 00:00:00 [facility] edical Branch Sex Assigned At 2000 2002 Universit y of 00:00:00 00:00:00 [facility] Smoking Status Start Date Stop Date Source Never smoked tobacco [facility] Medications Ordered Filled Start Stop Current Ordering Indication Dosage Frequency Signature Comments Components Source Medication Medication Date Date Medication? Clinician (SIG) Name Name acetaminoph 2022-0 Yes 650mg 650 mg, Un odilon en 6-02 Oral, ity of (TYLENOL) 13:29: Q6HPRN, [place] [...] Until Discontinu ed, Routine labetaloL 2022-0 Yes [id number] 200mg Take 1 U nivers 200 mg 6-02 tablet by ity of tablet 00:00: mouth [place] 00 every 12 Medical (twelve) Branch hours. labetaloL 2022-0 Yes [id number] 200mg Take 1 U nivers 200 mg 6-02 tablet by ity of tablet 00:00: mouth [place] 00 every 12 Medical (twelve) Branch hours. labetaloL 2022-0 Yes [id number] 200mg Take 1 U nivers 200 mg 6-02 tablet by ity of tablet 00:00: mouth [place] 00 every 12 Medical (twelve) Branch hours. labetaloL 2022-0 Yes [id number] 200mg Take 1 U nivers 200 mg 6-02 tablet by ity of tablet 00:00: mouth [place] 00 every 12 Medical (twelve) Branch hours. labetaloL 2022-0 Yes [id number] 200mg Take 1 U nivers 200 mg 6-02 tablet by ity of tablet 00:00: mouth [place] 00 every 12 Medical (twelve) Branch hours. labetaloL 2023-0 Yes [id number] 200mg Take 1 U nivers 200 mg 6-02 tablet by ity of tablet 00:00: mouth [place] 00 every 12 Medical (twelve) Branch hours. labetaloL 2023-0 Yes [id number] 200mg Take 1 U nivers 200 mg 6-02 tablet by ity of tablet 00:00: mouth [place] 00 every 12 Medical (twelve) Branch hours. labetaloL 2022-0 Yes [id number] 200mg Take 1 U nivers 200 mg 6-02 tablet by ity of tablet 00:00: mouth [place] 00 every 12 Medical (twelve) Branch hours. labetaloL Yes [id number] 200mg Take 1 U nivers 200 mg 6-02 tablet by ity of tablet 00:00: mouth [place] 00 every 12 Medical (twelve) Branch hours. KCL 2022- No 40meq 40 mEq, Univers (KLOR-CON 07-25- Oral, ity of M20) tablet 06:15: 13:41 DAILY, 2 [place] 40 mEq 00 :00 doses, Medical First dose Branch on Mon07/25/22 at 0115, Last dose on Mon07/25/22 at 0900, Routine ferrous Yes 325mg 325 mg, Univer s sulfate 07-25 Oral, BID, ity of tablet 325 01:00: First dose [place] mg 00 on [facility] 07/24/22 at Branch 2000, Until Discontinu ed, Routine ceFAZolin 2022- No 1000mg 1,000 mg, Univers (ANCEF) 07-24 IV ity of 1,000 mg in 19:00: 18:59 Piggyback, [place] NaCl 0.9% 00 :00 Q8H ABX, 6 Medi lottie (NS) 100 mL doses, [place] MINI-BAG First dose (after last modificati on) on [place] 07/24/22 at 1400, Last dose on Mon07/26/22 at [...] dose, Branch mcg Conditiona l, Routine HYDROcodone Yes 2{tbl} 2 tablet, Univers -acetaminop 07-24 Oral, ity of hen (NORCO 15:23: Q6HPRN, [place] 5) 5-325 mg 27 Starting Medi lottie tablet 2 on [facility] tablet 07/24/22 at 1023, Until Discontinu ed, Routine, Pain (scale 7-10), Alternate with Ibuprofen HYDROcodone 2023-0 Yes 1{tbl} 1 tablet, Univers -acetaminop 07-24 Oral, ity of hen (NORCO 15:23: Q6HPRN, [place] 5) 5-325 mg 22 Starting Medi lottie tablet 1 on [facility] tablet 07/24/22 at 1023, Until Discontinu ed, Routine, Pain (scale 4-6), Alternate with Ibuprofen diphenhydrA 2023-0 Yes 25mg 25 mg, Univ ers MINE 07-24 Slow IV ity of (BENADRYL) 15:21: [place], [place] injection 28 Q6HPRN, Medical 25 mg Starting Branch on 07/24/22 at 1021, Until Discontinu ed, Routine, Itching diphenhydrA 3-0 Yes 25mg 25 mg, Univ ers MINE 07-24 Oral, ity of (BENADRYL) 15:21: Q6HPRN, [place] tablet 25 28 Starting Medica l mg on [place] Branch 07/24/22 at 1021, Until Discontinu ed, Routine, Sleep, Itching ondansetron 3-0 Yes 4mg 4 mg, Slow Univers (ZOFRAN 07-24 IV Push, ity of (PF)) 15:21: Q8HPRN, [place] injection 4 28 Starting Medi lottie mg on [facility] 07/24/22 at 1021, Until Discontinu ed, Routine, Nausea and Vomiting (N/V) bisacodyL 2022-0 Yes 10mg 10 mg, Univer s (DULCOLAX) 07-24 Rectal, ity of suppository 15:21: QDAILYPRN, [place] 10 mg 28 Starting Medical on [place] Branch 07/24/22 at 1021, Until Discontinu ed, Routine, Constipati on simethicone 2023-0 Yes 160mg 160 mg, Un odilon (GAS RELIEF 07-24 Oral, ity of (SIMETHICON 15:21: PC+HSPRN, [place] E)) 28 Starting Medical chewable on [facility] tablet 160 07/24/22 at mg 1021, Until Discontinu ed, Routine, Gas docusate 3-0 Yes 200mg 200 mg, Unive rs (COLACE) 07-24 Oral, ity of capsule 200 15:21: QDAILYPRN, [place] mg 28 Starting Medical on [place] Branch 07/24/22 at 1021, Until Discontinu ed, Routine, Constipati on magnesium Yes 30mL 30 [facility]-24 Oral, ity of (MILK OF 15:21: QDAILYPRN, [place] MAGNESIA) 28 Starting Medica l 400 mg/5 mL on [place] Branch suspension 07/24/22 at 30 mL 1021, Until Discontinu ed, Routine, Constipati on lactated 2022- No 1000mL at 125 Univ ers ringers IV 07-24 05-28 mL/hr, ity of infusion 15:21: 16:25 1,000 mL, [place] 1,000 mL 28 :00 IV Medical Infusion, Branch PRN, 1 dose, Starting on 07/24/22 at 1021, Until Discontinu ed, Routine 2022- No Take by Unive rs 25/iron 07-23 mouth. ity of fum/folic/d 12:50: 00:00 [place] betancur 40 :00 Medical (-1 Branch ORAL) HYDROcodone 2022- No 1{tbl} 1 tablet, Univers -acetaminop 07-23 Oral, ity of hen (NORCO 01:41: 01:40 Q6HPRN, [place] 5) 5-325 mg 26 :26 Starting Medi lottie tablet 1 on Mon Branch tablet 07/22/22 at 2040, Until 07/24/22 at 2039, Routine, Pain (scale 4-6) Nitrofurant 2022- No 100mg 100 mg, U nivers oin&Nit. 07-23 0603 Oral, BID, ity of Macrocryst 01:00: 00:59 [...] No 100mg 100 mg, U nivers oin&Nit. 5-27 [...]
D uration of Therapy: 7 days Yes [id number] 1{tbl} Take 1 Univers vitamin 5-27 tablet by ity of w/FA tablet 00:00: mouth in [place] 00 the Medical morning. Branch docusate Yes [id number] 200mg Take 2 U nivers 100 mg 5-27 capsules ity of capsule 00:00: by mouth [place] 00 once daily Medical as needed Branch for Constipati on. ferrous Yes [id number] 325mg Take 1 Un odilon sulfate 325 5-27 tablet by ity of mg (65 mg 00:00: [place] iron) 00 the Medical tablet morning Branch and 1 tablet in the evening. ibuprofen Yes [id number] 600mg Take 1 Univers 600 mg 5-27 tablet by ity of tablet 00:00: mouth [place] 00 every 6 Medical (six) Branch hours as needed (Pain). Take with food or milk. Yes [id number] 1{tbl} Take 1 Univers vitamin 5-27 tablet by ity of w/FA tablet 00:00: mouth in [place] 00 the Medical morning. Branch docusate Yes [id number] 200mg Take 2 U nivers 100 mg 5-27 capsules ity of capsule 00:00: by mouth [place] 00 once daily Medical as needed Branch for Constipati on. ferrous Yes [id number] 325mg Take 1 Un odilon sulfate 325 5-27 tablet by ity of mg (65 mg 00:00: [place] iron) 00 the Medical tablet morning Branch and 1 tablet in the evening. 2023-0 Yes [id number] 1{tbl} Take 1 Univers vitamin 5-27 tablet by ity of w/FA tablet 00:00: mouth in [place] 00 the Medical morning. Branch docusate 0 Yes [id number] 200mg Take 2 U nivers 100 mg 5-27 capsules ity of capsule 00:00: by mouth [place] 00 once daily Medical as needed Branch for Constipati on. ferrous 0 Yes [id number] 325mg Take 1 Un odilon sulfate 325 5-27 tablet by ity of mg (65 mg 00:00: [place] iron[place] 00 the Medical tablet morning Branch and 1 tablet in the evening. 0 Yes [id number] 1{tbl} Take 1 Univers vitamin 5-27 tablet by ity of w/FA tablet 00:00: mouth in [place] 00 the Medical morning. Branch docusate 0 Yes [id number] 200mg Take 2 U nivers 100 mg 5-27 capsules ity of capsule 00:00: by mouth [place] 00 once daily Medical as needed Branch for Constipati on. ferrous 0 Yes [id number] 325mg Take 1 Un odilon sulfate 325 5-27 tablet by ity of mg (65 mg 00:00: [place] iron[place] 00 the Medical tablet morning Branch and 1 tablet in the evening. 0 Yes [id number] 1{tbl} Take 1 Univers vitamin 5-27 tablet by ity of w/FA tablet 00:00: mouth in [place] 00 the Medical morning. Branch docusate 0 Yes [id number] 200mg Take 2 U nivers 100 mg 5-27 capsules ity of capsule 00:00: by mouth [place] 00 once daily Medical as needed Branch for Constipati on. ferrous 0 Yes [id number] 325mg Take 1 Un odilon sulfate 325 5-27 tablet by ity of mg (65 mg 00:00: [place] iron) 00 the Medical tablet morning Branch and 1 tablet in the evening. 0 Yes [id number] 1{tbl} Take 1 Univers vitamin 5-27 tablet by ity of w/FA tablet 00:00: mouth in [place] 00 the Medical morning. Branch docusate 0 Yes [id number] 200mg Take 2 U nivers 100 mg 5-27 capsules ity of capsule 00:00: by mouth [place] 00 once daily Medical as needed Branch for Constipati on. ferrous 2022-0 Yes [id number] 325mg Take 1 Un odilon sulfate 325 5-27 tablet by ity of mg (65 mg 00:00: [place] iron[place] 00 the Medical tablet morning Branch and 1 tablet in the evening. 2022-0 Yes [id number] 1{tbl} Take 1 Univers vitamin 5-27 tablet by ity of w/FA tablet 00:00: mouth in [place] 00 the Medical morning. Branch docusate 0 Yes [id number] 200mg Take 2 U nivers 100 mg 5-27 capsules ity of capsule 00:00: by mouth [place] 00 once daily Medical as needed Branch for Constipati on. ferrous 0 Yes [id number] 325mg Take 1 Un odilon sulfate 325 5-27 tablet by ity of mg (65 mg 00:00: [place] iron[place] 00 the Medical tablet morning Branch and 1 tablet in the evening. 0 Yes [id number] 1{tbl} Take 1 Univers vitamin 5-27 tablet by ity of w/FA tablet 00:00: mouth in [place] 00 the Medical morning. Branch docusate 0 Yes [id number] 200mg Take 2 U nivers 100 mg 5-27 capsules ity of capsule 00:00: by mouth [place] 00 once daily Medical as needed Branch for Constipati on. ferrous 2022-0 Yes [id number] 325mg Take 1 Un odilon sulfate 325 5-27 tablet by ity of mg (65 mg 00:00: [place] iron[place] 00 the Medical tablet morning Branch and 1 tablet in the evening. 2022-0 Yes [id number] 1{tbl} Take 1 Univers vitamin 5-27 tablet by ity of w/FA tablet 00:00: mouth in [place] 00 the Medical morning. Branch docusate 0 Yes [id number] 200mg Take 2 U nivers 100 mg 5-27 capsules ity of capsule 00:00: by mouth [place] 00 once daily Medical as needed Branch for Constipati on. ferrous 2022-0 Yes [id number] 325mg Take 1 Un odilon sulfate 325 5-27 tablet by ity of mg (65 mg 00:00: [place] iron[place] 00 the Medical tablet morning Branch and 1 tablet in the evening. 0 Yes [id number] 1{tbl} Take 1 Univers vitamin 5-27 tablet by ity of w/FA tablet 00:00: mouth in [place] 00 the Medical morning. Branch docusate 0 Yes [id number] 200mg Take 2 U nivers 100 mg 5-27 capsules ity of capsule 00:00: by mouth [place] 00 once daily Medical as needed Branch for Constipati on. ferrous Yes [id number] 325mg Take 1 Un odilon sulfate 325 5-27 tablet by ity of mg (65 mg 00:00: [place] iron) 00 the Medical tablet morning Branch and 1 tablet in the evening. 0 Yes [id number] 1{tbl} Take 1 Univers vitamin 5-27 tablet by ity of w/FA tablet 00:00: mouth in [place] 00 the Medical morning. Branch docusate 0 Yes [id number] 200mg Take 2 U nivers 100 mg 5-27 capsules ity of capsule 00:00: by mouth [place] 00 once daily Medical as needed Branch for Constipati on. ferrous Yes [id number] 325mg Take 1 Un odilon sulfate 325 5-27 tablet by ity of mg (65 mg 00:00: [place] iron) 00 the Medical tablet morning Branch and 1 tablet in the evening. 0 Yes [id number] 1{tbl} Take 1 Univers vitamin 5-27 tablet by ity of w/FA tablet 00:00: mouth in [place] 00 the Medical morning. Branch docusate 0 Yes [id number] 200mg Take 2 U nivers 100 mg 5-27 capsules ity of capsule 00:00: by mouth [place] 00 once daily Medical as needed Branch for Constipati on. ferrous 0 Yes [id number] 325mg Take 1 Un odilon sulfate 325 5-27 tablet by ity of mg (65 mg 00:00: [place] iron) 00 the Medical tablet morning Branch and 1 tablet in the evening. 2022-0 Yes [id number] 1{tbl} Take 1 Univers vitamin 5-27 tablet by ity of w/FA tablet 00:00: mouth in [place] 00 the Medical morning. Branch docusate Yes [id number] 200mg Take 2 U nivers 100 mg 5-27 capsules ity of capsule 00:00: by mouth [place] 00 once daily Medical as needed Branch for Constipati on. ferrous Yes [id number] 325mg Take 1 Un odilon sulfate 325 5-27 tablet by ity of mg (65 mg 00:00: [place] iron[place] 00 the Medical tablet morning Branch and 1 tablet in the evening. Yes [id number] 1{tbl} Take 1 Univers vitamin 5-27 tablet by ity of w/FA tablet 00:00: mouth in [place] 00 the Medical morning. Branch docusate Yes [id number] 200mg Take 2 U nivers 100 mg 5-27 capsules ity of capsule 00:00: by mouth [place] 00 once daily Medical as needed Branch for Constipati on. ferrous Yes [id number] 325mg Take 1 Un odilon sulfate 325 [...] Indication s: acute pain ibuprofen 2022- No [id number] 600mg Take 1 Univers 600 mg 5-27 [...] 07-22 Oral, ity of (TYLENOL) 20:00: Q6HPRN, [place] tablet 650 00 Starting Medic al mg on Mon Branch 07/22/22 at 1500, Until Discontinu ed, Routine, Pain acetaminoph 2022-0 Yes 650mg 650 mg, Un odilon en 07-22 Oral, ity of (TYLENOL) 20:00: Q6HPRN, [place] tablet 650 00 Starting Medic al mg [...] Medical Infusion, Branch ONCE, 1 dose, On [facility] 07/21/22 at 1630, Routine diphenhydrA 2022-0 Yes 25mg 25 mg, Univ ers MINE 5-25 Slow IV ity of (BENADRYL) 20:34: [place], [place] injection 05 Q6HPRN, Medical 25 mg Starting Branch on [facility] 07/21/22 at 1534, Until Discontinu ed, Routine, Itching diphenhydrA 2022-0 Yes 25mg 25 mg, Univ ers MINE 5-25 Oral, ity of (BENADRYL) 20:34: Q6HPRN, [place] tablet 25 05 Starting Medica l mg on [facility] Branch 07/21/22 at 1534, Until Discontinu ed, Routine, Sleep, Itching ondansetron 0 Yes 4mg 4 mg, Slow Univers (ZOFRAN 5-25 IV Push, ity of (PF)) 20:34: Q8HPRN, [place] injection 4 05 Starting Medi lottie mg on [facility] Branch 07/21/22 at 1534, Until Discontinu ed, Routine, Nausea and Vomiting (N/V) bisacodyL 0 Yes 10mg 10 mg, Univer s (DULCOLAX) 5-25 Rectal, ity of suppository 20:34: QDAILYPRN, [place] 10 mg 05 Starting Medical on [facility] Branch 07/21/22 at 1534, Until Discontinu ed, Routine, Constipati on simethicone 0 Yes 160mg 160 mg, Un odilon (GAS RELIEF 5-25 Oral, ity of (SIMETHICON 20:34: PC+HSPRN, [place] E)) 05 Starting Medical chewable on [facility] Branch tablet 160 07/21/22 at mg [...] 25 05 Starting Medica l mg on [facility] Branch 07/21/22 at 1534, Until Discontinu ed, Routine, Sleep, Itching ondansetron 2022-0 Yes 4mg 4 mg, Slow Univers (ZOFRAN 5-25 IV Push, ity of (PF)) 20:34: Q8HPRN, [place] injection 4 05 Starting Medi lottie mg on [facility] Branch 07/21/22 at 1534, Until Discontinu ed, Routine, Nausea and Vomiting (N/V) bisacodyL 2022-0 Yes 10mg 10 mg, Univer s (DULCOLAX) 5-25 Rectal, ity of suppository 20:34: QDAILYPRN, [place] 10 mg 05 Starting Medical on [facility] Branch 07/21/22 at 1534, Until Discontinu ed, Routine, Constipati on simethicone 2022-0 Yes 160mg 160 mg, Un odilon (GAS RELIEF 5-25 Oral, ity of (SIMETHICON 20:34: PC+HSPRN, [place] E)) 05 Starting Medical chewable on [facility] Branch tablet 160 07/21/22 at mg [...] ity of 2,000 mg in 19:30: 19:07 [place], [place] NaCl 0.9% 00 :00 ONCE, 1 [...] sodium No 30mL 30 mL, Univers citrate-cit 07-21 [...] 19 Medical (-1 Branch ORAL) Nitrofurant Yes [id number] 100mg Take 1 Univers oin&Nit. 5-23 capsule by ity o f Macrocryst 00:00: mouth in [place] 100 mg 00 the Medical capsule morning Branch and 1 capsule in the evening. Nitrofurant 0 Yes [id number] 100mg Take 1 Univers oin&Nit. 5-23 capsule by ity o f Macrocryst 00:00: mouth in [place] 100 mg 00 the Medical capsule morning Branch and 1 capsule in the evening. Nitrofurant 0 Yes [id number] 100mg Take 1 Univers oin&Nit. 5-23 capsule by ity o f Macrocryst 00:00: mouth in [place] 100 mg 00 the Medical capsule morning Branch and 1 capsule in the evening. Nitrofurant 2022- No [id number] 100mg Take 1 Univers oin&Nit. 5-23 05-28 capsule by ity of Macrocryst 00:00: 00:00 mouth [place] 100 mg 00 :00 the Medical capsule morning Branch and 1 capsule in the evening. Yes Take by Univer s 25/iron 5-21 mouth. ity of fum/folic/d 12:50: [facility] 57 Medical (-1 Branch ORAL) 0 Yes Take by Univer s 25/iron 5-21 mouth. ity of fum/folic/d 12:50: [facility] 57 Medical (-1 Branch ORAL) Yes Take by Univer s 25/iron 5-15 mouth. ity of fum/folic/d 03:19: [facility] 16 Medical (-1 Branch ORAL) Yes Take by Univer s 25/iron 5-15 mouth. ity of fum/folic/d 03:19: [facility] 16 Medical (-1 Branch ORAL) Yes Take by Univer s 25/iron 5-15 mouth. ity of fum/folic/d 03:19: [facility] 16 Medical (-1 Branch ORAL) terbutaline 2022- No .25mg 0.25 mg, Univers (BRETHINE) 5- 05-10 Subcutaneo it y of injection 08:45: [...] 25/iron 5-10 mouth. ity of fum/folic/d 05:26: [facility] 51 Medical (-1 Branch ORAL) Yes Take by Univer s 25/iron 5-10 mouth. ity of fum/folic/d 05:26: [facility] 51 Medical (-1 Branch ORAL) Yes Take by Univer s 25/iron 5-10 mouth. ity of fum/folic/d 05:26: [facility] 51 Medical (-1 Branch ORAL) metroNIDAZO 0 2022- No [id number] 500mg Take 1 Univers LE 500 mg 2-16 -24 tablet by ity of tablet 00:00: 05:59 mouth in [place] 00 :00 the Medical morning Branch and 1 tablet in the evening. Do all this for 7 days. metroNIDAZO 2023-0 2023- No [id number] 500mg Take 1 Univers LE 500 mg 2-16 -24 tablet by ity of tablet 00:00: 05:59 mouth in [place] 00 :00 the Medical morning Branch and 1 tablet in the evening. Do all this for 7 days. metroNIDAZO 2023-0 2023- No [id number] 500mg Take 1 Univers LE 500 mg 216 -24 tablet by ity of tablet 00:00: 05:59 mouth in [place] 00 :00 the Medical morning Branch and 1 tablet in the evening. Do all this for 7 days. metroNIDAZO 2023-0 2023- No [id number] 500mg Take 1 [facility] LE 500 mg 2-24 tablet by ity of tablet 00:00: 05:59 mouth in [place] 00 :00 the Medical morning Branch and 1 tablet in the evening. Do all this for 7 days. metroNIDAZO 2023-0 2023- No [id number] 500mg Take 1 [facility] LE 500 mg 04-14-24 tablet by ity of tablet 00:00: 05:59 mouth in [place] 00 :00 the Medical morning Branch and 1 tablet in the evening. Do all this for 7 days. hydroxyprog 2023-0 2023- No [id number] 275mg [facility] esterone(PF 03-31 ity of ) (KATHLEEN 06:00: 04:59 [place] AUTO-INJECT 00 :00 Medical OR) 275 Branch mg/1.1 mL injection 275 mg hydroxyprog 2023-0 2023- No [id number] 275mg [facility] esterone(PF 03-31 ity of ) (KATHLEEN 06:00: 04:59 [place] AUTO-INJECT 00 :00 Medical OR) 275 Branch mg/1.1 mL injection 275 mg hydroxyprog 2023-0 2023- No [id number] 275mg 275 mg, [facility] esterone(PF 03-31 Subcutaneo i ty of ) (KATHLEEN 06:00: 04:59 , [place] AUTO-INJECT 00 :00 QWEEKLY, [facility] OR) 275 16 doses, Branch mg/1.1 mL First dose injection on Alissa 275 mg 03/31/22 at 0000, Last dose on [place]issa 07/14/22 at 0000, Routine hydroxyprog 2023-0 2023- No [id number] 275mg [facility] esterone(PF 03-31 ity of ) (KATHLEEN 06:00: 04:59 [place] AUTO-INJECT 00 :00 Medical OR) 275 Branch mg/1.1 mL injection 275 mg hydroxyprog 2023-0 2023- No [id number] 275mg 275 mg, [facility] esterone(PF 03-31 Subcutaneo i ty of ) (KATHLEEN 06:00: 04:59 , [place] AUTO-INJECT 00 :00 QWEEKLY, [facility] OR) 275 16 doses, Branch mg/1.1 mL First dose injection on Alissa 275 mg 03/31/22 at 0000, Last dose on [place] 07/14/22 at 0000, Routine hydroxyprog 2023-0 2023- No [id number] 275mg [facility] esterone(PF 03-31 ity of ) (KATHLEEN 06:00: 04:59 [place] AUTO-INJECT 00 :00 Medical OR) 275 Branch mg/1.1 mL injection 275 mg hydroxyprog 2023-0 2023- No [id number] 275mg [facility] esterone(PF 03-31 ity of ) (KATHLEEN 06:00: 04:59 [place] AUTO-INJECT 00 :00 Medical OR) 275 Branch mg/1.1 mL injection 275 mg hydroxyprog 2023-0 2023- No [id number] 275mg [facility] esterone(PF 03-31 ity of ) (KATHLEEN 06:00: 04:59 [place] AUTO-INJECT 00 :00 Medical OR) 275 Branch mg/1.1 mL injection 275 mg hydroxyprog 2023-0 2023- No [id number] 275mg [facility] esterone(PF 03-31 ity of ) (KATHLEEN 06:00: 04:59 [place] AUTO-INJECT 00 :00 Medical OR) 275 Branch mg/1.1 mL injection 275 mg hydroxyprog 2023-0 2023- No [id number] 275mg [facility] esterone(PF 2-02 05-25 ity of ) (KATHLEEN 06:00: 04:59 [place] AUTO-INJECT 00 :00 Medical OR) 275 Branch mg/1.1 mL injection 275 mg hydroxyprog 2023-0 2023- No [id number] 275mg 275 mg, [facility] esterone(PF 03-31 Subcutaneo i ty of ) (KATHLEEN 06:00: 04:59 us, [place] AUTO-INJECT 00 :00 QWEEKLY, [facility] OR) 275 16 doses, Branch mg/1.1 mL First dose injection on Alissa 275 mg 03/31/22 at 0000, Last dose on [place] 07/14/22 at 0000, Routine hydroxyprog 2023-0 2023- No [id number] 275mg [facility] esterone(PF 03-31 ity of ) (KATHLEEN 06:00: 04:59 [place] AUTO-INJECT 00 :00 Medical OR) 275 Branch mg/1.1 mL injection 275 mg hydroxyprog 2023-0 2023- No [id number] 275mg [facility] esterone(PF 03-31 ity of ) (KATHLEEN 06:00: 04:59 [place] AUTO-INJECT 00 :00 Medical OR) 275 Branch mg/1.1 mL injection 275 mg hydroxyprog 2023-0 2023- No [id number] 275mg [facility] esterone(PF 03-31 ity of ) (KATHLEEN 06:00: 04:59 [place] AUTO-INJECT 00 :00 Medical OR) 275 Branch mg/1.1 mL injection 275 mg hydroxyprog 2023-0 2023- No [id number] 275mg 275 mg, [facility] esterone(PF 03-31 Subcutaneo i ty of ) (KATHLEEN 06:00: 04:59 us, [place] AUTO-INJECT 00 :00 QWEEKLY, [facility] lottie OR) 275 16 doses, Branch mg/1.1 mL First dose injection on Alissa 275 mg 03/31/22 at 0000, Last dose on [place] 07/14/22 at 0000, Routine hydroxyprog 2023-0 2023- No [id number] 275mg [facility] esterone(PF 03-31 ity of ) (KATHLEEN 06:00: 04:59 [place] AUTO-INJECT 00 :00 Medical OR) 275 Branch mg/1.1 mL injection 275 mg hydroxyprog 2023-0 2023- No [id number] 275mg 275 mg, [facility] esterone(PF 03-31 Subcutaneo i ty of ) (KATHLEEN 06:00: 04:59 us, [place] AUTO-INJECT 00 :00 QWEEKLY, [facility] OR) 275 16 doses, Branch mg/1.1 mL First dose injection on Alissa 275 mg 03/31/22 at 0000, Last dose on [place] 07/14/22 at 0000, Routine hydroxyprog 2023-0 2023- No [id number] 275mg [facility] esterone(PF 03-31 ity of ) (KATHLEEN 06:00: 04:59 [place] AUTO-INJECT 00 :00 Medical OR) 275 Branch mg/1.1 mL injection 275 mg hydroxyprog 2023-0 2023- No [id number] 275mg 275 mg, [facility] esterone(PF 03-31 Subcutaneo i ty of ) (KATHLEEN 06:00: 04:59 us, [place] AUTO-INJECT 00 :00 QWEEKLY, [facility] OR) 275 16 doses, Branch mg/1.1 mL First dose injection on Alissa 275 mg 03/31/22 at 0000, Last dose on [place] 07/14/22 at 0000, Routine hydroxyprog 2023-0 2023- No [id number] 275mg [facility] esterone(PF 03-31 ity of ) (KATHLEEN 06:00: 04:59 [place] AUTO-INJECT 00 :00 Medical OR) 275 Branch mg/1.1 mL injection 275 mg hydroxyprog 2023-0 2023- No [id number] 275mg 275 mg, [facility] esterone(PF 03-31 Subcutaneo i ty of ) (KATHLEEN 06:00: 04:59 us, [place] AUTO-INJECT 00 :00 QWEEKLY, [facility] OR) 275 16 doses, Branch mg/1.1 mL First dose injection on [place] 275 mg 03/31/22 at 0000, Last dose on [place] 07/14/22 at 0000, Routine hydroxyprog 2023-0 2023- No [id number] 275mg [facility] esterone(PF 03-31 ity of ) (KATHLEEN 06:00: 04:59 [place] AUTO-INJECT 00 :00 Medical OR) 275 Branch mg/1.1 mL injection 275 mg hydroxyprog 2023-0 2023- No [id number] 275mg [facility] esterone(PF 03-31 ity of ) (AKTHLEEN 06:00: 04:59 [place] AUTO-INJECT 00 :00 Medical OR) 275 Branch mg/1.1 mL injection 275 mg hydroxyprog 2023-0 2023- No [id number] 275mg 275 mg, [facility] esterone(PF 03-31 Subcutaneo i ty of ) (KATHLEEN 06:00: 04:59 us, [place] AUTO-INJECT 00 :00 QWEEKLY, [facility] OR) 275 16 doses, Branch mg/1.1 mL First dose injection on [place] 275 mg 03/31/22 at 0000, Last dose on [place] 07/14/22 at 0000, Routine hydroxyprog 2023-0 2023- No [id number] 275mg [facility] esterone(PF 03-31 ity of ) (KATHLEEN 06:00: 04:59 [place] AUTO-INJECT 00 :00 Medical OR) 275 Branch mg/1.1 mL injection 275 mg hydroxyprog 2023-0 2023- No [id number] 275mg 275 mg, [facility] esterone(PF 03-31 Subcutaneo i ty of ) (KATHLEEN 06:00: 04:59 us, [place] AUTO-INJECT 00 :00 QWEEKLY, [facility] OR) 275 16 doses, Branch mg/1.1 mL First dose injection on [place] 275 mg 03/31/22 at 0000, Last dose on [place] 07/14/22 at 0000, Routine hydroxyprog 2023-0 2023- No [id number] 275mg [facility] esterone(PF 03-31 ity of ) (KATHLEEN 06:00: 04:59 [place] AUTO-INJECT 00 :00 Medical OR) 275 Branch mg/1.1 mL injection 275 mg hydroxyprog 2023-0 2023- No [id number] 275mg 275 mg, [facility] esterone(PF 03-31 Subcutaneo i ty of ) (KATHLEEN 06:00: 04:59 us, [place] AUTO-INJECT 00 :00 QWEEKLY, [facility] OR) 275 16 doses, Branch mg/1.1 mL First dose injection on [place] 275 mg 03/31/22 at 0000, Last dose on [place] 07/14/22 at 0000, Routine hydroxyprog 2023-0 2023- No [id number] 275mg [facility] esterone(PF 03-31 ity of ) (KATHLEEN 06:00: 04:59 [place] AUTO-INJECT 00 :00 Medical OR) 275 Branch mg/1.1 mL injection 275 mg hydroxyprog 2023-0 2023- No [id number] 275mg 275 mg, [facility] esterone(PF 03-31 Subcutaneo i ty of ) (KATHLEEN 06:00: 04:59 us, [place] AUTO-INJECT 00 :00 QWEEKLY, [facility] OR) 275 16 doses, Branch mg/1.1 mL First dose injection on [place] 275 mg 03/31/22 at 0000, Last dose on [place] 07/14/22 at 0000, Routine hydroxyprog 2023-0 2023- No [id number] 275mg [facility] esterone(PF 03-31 ity of ) (KATHLEEN 06:00: 04:59 [place] AUTO-INJECT 00 :00 Medical OR) 275 Branch mg/1.1 mL injection 275 mg hydroxyprog 2023-0 2023- No [id number] 275mg 275 mg, [facility] esterone(PF 03-31 Subcutaneo i ty of ) (KATHLEEN 06:00: 04:59 us, [place] AUTO-INJECT 00 :00 QWEEKLY, [facility] OR) 275 16 doses, Branch mg/1.1 mL First dose injection on [place] 275 mg 03/31/22 at 0000, Last dose on [place] 07/14/22 at 0000, Routine hydroxyprog 2023-0 2023- No [id number] 275mg [facility] esterone(PF 03-31 ity of ) (KATHLEEN 06:00: 04:59 [place] AUTO-INJECT 00 :00 Medical OR) 275 Branch mg/1.1 mL injection 275 mg hydroxyprog 2023-0 2023- No [id number] 275mg 275 mg, [facility] esterone(PF 03-31 Subcutaneo i ty of ) (KATHLEEN 06:00: 04:59 us, [place] AUTO-INJECT 00 :00 QWEEKLY, [facility] OR) 275 16 doses, Branch mg/1.1 mL First dose injection on [place] 275 mg 03/31/22 at 0000, Last dose on [place] 07/14/22 at 0000, Routine hydroxyprog 2023-0 2023- No [id number] 275mg [facility] esterone(PF 03-31 ity of ) (KATHLEEN 06:00: 04:59 [place] AUTO-INJECT 00 :00 Medical OR) 275 Branch mg/1.1 mL injection 275 mg hydroxyprog 2023-0 2023- No [id number] 275mg [facility] esterone(PF 03-31 ity of ) (KATHLEEN 06:00: 04:59 [place] AUTO-INJECT 00 :00 Medical OR) 275 Branch mg/1.1 mL injection 275 mg hydroxyprog 2023-0 2023- No [id number] 275mg [facility] esterone(PF 03-31 ity of ) (KATHLEEN 06:: :59 [place] AUTO-INJECT 00 :00 Medical OR) 275 Branch mg/1.1 mL injection 275 mg hydroxyprog 2023-0 2023- No [id number] 275mg [facility] esterone(PF 03-31 ity of ) (KATHLEEN 06:: :59 [place] AUTO-INJECT 00 :00 Medical OR) 275 Branch mg/1.1 mL injection 275 mg hydroxyprog 2023-0 2023- No [id number] 275mg [facility] esterone(PF 03-31 ity of ) (KATHLEEN 06:: :59 [place] AUTO-INJECT 00 :00 Medical OR) 275 Branch mg/1.1 mL injection 275 mg hydroxyprog 2023-0 2023- No [id number] 275mg [facility] esterone(PF 03-31 ity of ) (KATHLEEN 06:: :59 [place] AUTO-INJECT 00 :00 Medical OR) 275 Branch mg/1.1 mL injection 275 mg hydroxyprog 2023-0 2023- No [id number] 275mg [facility] esterone(PF 03-31 ity of ) (KATHLEEN 06:: :59 [place] AUTO-INJECT 00 :00 Medical OR) 275 Branch mg/1.1 mL injection 275 mg hydroxyprog 2023-0 2023- No [id number] 275mg [facility] esterone(PF 03-31 ity of ) (KATHLEEN 06:00: :59 [place] AUTO-INJECT 00 :00 Medical OR) 275 Branch mg/1.1 mL injection 275 mg hydroxyprog 2023-0 2023- No [id number] 275mg [facility] esterone(PF 03-31 ity of ) (KATHLEEN 06:00: 04:59 [place] AUTO-INJECT 00 :00 Medical OR) 275 Branch mg/1.1 mL injection 275 mg hydroxyprog 2023-0 2023- No [id number] 275mg [facility] esterone(PF 03-31 ity of ) (KATHLEEN 06:00: 04:59 [place] AUTO-INJECT 00 :00 Medical OR) 275 Branch mg/1.1 mL injection 275 mg hydroxyprog 2023-0 2023- No [id number] 275mg [facility] esterone(PF 03-31 ity of ) (KATHLEEN 06:00: 04:59 [place] AUTO-INJECT 00 :00 Medical OR) 275 Branch mg/1.1 mL injection 275 mg hydroxyprog 2023-0 2023- No [id number] 275mg [facility] esterone(PF 03-24 ity of ) (KATHLEEN 16:45: 15:59 [place] AUTO-INJECT 00 :00 Medical OR) 275 Branch mg/1.1 mL injection 275 mg hydroxyprog 2023-0 2023- No [id number] 275mg 275 mg, [facility] esterone(PF 03-24 Subcutaneo [...] weekly. Medical injection Branch hydroxyprog 2023-0 Yes [id number] 275mg inject 1.1 [facility] esterone,PF 1-09 mL under ity of , 275 00:00: the skin [place] mg/1.1 mL 00 weekly. Medical injection Branch hydroxyprog 2023-0 Yes 275mg inject 1.1 [facility] esterone,PF 1-09 mL under ity of , 275 00:00: the skin [place] mg/1.1 mL 00 weekly. Medical injection Branch hydroxyprog 2023-0 Yes [id number] 275mg inject 1.1 [facility] esterone,PF 1-09 mL under ity of , 275 00:00: the skin [place] mg/1.1 mL 00 weekly. Medical injection Branch hydroxyprog 2023-0 Yes 275mg inject 1.1 [facility] esterone,PF 1-09 mL under ity of , 275 00:00: the skin [place] mg/1.1 mL 00 weekly. Medical injection Branch hydroxyprog 2023-0 Yes [id number] 275mg inject 1.1 [facility] esterone,PF 1-09 mL under ity of , 275 00:00: the skin [place] mg/1.1 mL 00 weekly. Medical injection Branch hydroxyprog 2023-0 Yes 275mg inject 1.1 [facility] esterone,PF 1-09 mL under ity of , 275 00:00: the skin [place] mg/1.1 mL 00 weekly. Medical injection Branch hydroxyprog 2023-0 Yes [id number] 275mg inject 1.1 [facility] esterone,PF 1-09 mL under ity of , 275 00:00: the skin [place] mg/1.1 mL 00 weekly. Medical injection Branch hydroxyprog 2023-0 Yes 275mg inject 1.1 [facility] esterone,PF 1-09 mL under ity of , 275 00:00: the skin [place] mg/1.1 mL 00 weekly. Medical injection Branch hydroxyprog 2023-0 Yes [id number] 275mg inject 1.1 [facility] esterone,PF 1-09 mL under ity of , 275 00:00: the skin [place] mg/1.1 mL 00 weekly. Medical injection Branch hydroxyprog 2023-0 Yes 275mg inject 1.1 [facility] esterone,PF 1-09 mL under ity of , 275 00:00: the skin [place] mg/1.1 mL 00 weekly. Medical injection Branch hydroxyprog 2023-0 Yes [id number] 275mg inject 1.1 [facility] esterone,PF 1-09 mL under ity of , 275 00:00: the skin [place] mg/1.1 mL 00 weekly. Medical injection Branch hydroxyprog 2023-0 Yes 275mg inject 1.1 [facility] esterone,PF 1-09 mL under ity of , 275 00:00: the skin [place] mg/1.1 mL 00 weekly. Medical injection Branch hydroxyprog 2023-0 Yes [id number] 275mg inject 1.1 [facility] esterone,PF 1-09 mL under ity of , 275 00:00: the skin [place] mg/1.1 mL 00 weekly. Medical injection Branch hydroxyprog 2023-0 Yes 275mg inject 1.1 [facility] esterone,PF 1-09 mL under ity of , 275 00:00: the skin [place] mg/1.1 mL 00 weekly. Medical injection Branch hydroxyprog 2023-0 Yes [id number] 275mg inject 1.1 [facility] esterone,PF 1-09 mL under ity of , 275 00:00: the skin [place] mg/1.1 mL 00 weekly. Medical injection Branch hydroxyprog 2023-0 Yes 275mg inject 1.1 [facility] esterone,PF 1-09 mL under ity of , 275 00:00: the skin [place] mg/1.1 mL 00 weekly. Medical injection Branch hydroxyprog 2023-0 Yes [id number] 275mg inject 1.1 [facility] esterone,PF 1-09 mL under ity of , 275 00:00: the skin [place] mg/1.1 mL 00 weekly. Medical injection Branch hydroxyprog 2023-0 Yes 275mg inject 1.1 [facility] esterone,PF 1-09 mL under ity of , 275 00:00: the skin [place] mg/1.1 mL 00 weekly. Medical injection Branch hydroxyprog 2023-0 Yes [id number] 275mg inject 1.1 [facility] esterone,PF 1-09 mL under ity of , 275 00:00: the skin [place] mg/1.1 mL 00 weekly. Medical injection Branch hydroxyprog 2023-0 Yes 275mg inject 1.1 [facility] esterone,PF 1-09 mL under ity of , 275 00:00: the skin [place] mg/1.1 mL 00 weekly. Medical injection Branch hydroxyprog 2023-0 Yes [id number] 275mg inject 1.1 [facility] esterone,PF 1-09 mL under ity of , 275 00:00: the skin [place] mg/1.1 mL 00 weekly. Medical injection Branch hydroxyprog 2023-0 Yes 275mg inject 1.1 [facility] esterone,PF 1-09 mL under ity of , 275 00:00: the skin [place] mg/1.1 mL 00 weekly. Medical injection Branch hydroxyprog 2023-0 Yes [id number] 275mg inject 1.1 [facility] esterone,PF 1-09 mL under ity of , 275 00:00: the skin [place] mg/1.1 mL 00 weekly. Medical injection Branch hydroxyprog 2023-0 Yes 275mg inject 1.1 [facility] esterone,PF 1-09 mL under ity of , 275 00:00: the skin [place] mg/1.1 mL 00 weekly. Medical injection Branch hydroxyprog 2023-0 Yes [id number] 275mg inject 1.1 [facility] esterone,PF 1-09 mL under ity of , 275 00:00: the skin [place] mg/1.1 mL 00 weekly. Medical injection Branch hydroxyprog 2023-0 Yes 275mg inject 1.1 [facility] esterone,PF 1-09 mL under ity of , 275 00:00: the skin [place] mg/1.1 mL 00 weekly. Medical injection Branch hydroxyprog 2023-0 Yes [id number] 275mg inject 1.1 [facility] esterone,PF 1-09 mL under ity of , 275 00:00: the skin [place] mg/1.1 mL 00 weekly. Medical injection Branch hydroxyprog 2023-0 Yes 275mg inject 1.1 [facility] esterone,PF 1-09 mL under ity of , 275 00:00: the skin [place] mg/1.1 mL 00 weekly. Medical injection Branch hydroxyprog 2023-0 Yes [id number] 275mg inject 1.1 [facility] esterone,PF 1-09 mL under ity of , 275 00:00: the skin [place] mg/1.1 mL 00 weekly. Medical injection Branch hydroxyprog 2023-0 Yes 275mg inject 1.1 [facility] esterone,PF 1-09 mL under ity of , 275 00:00: the skin [place] mg/1.1 mL 00 weekly. Medical injection Branch hydroxyprog 2023-0 Yes [id number] 275mg inject 1.1 [facility] esterone,PF 1-09 mL under ity of , 275 00:00: the skin [place] mg/1.1 mL 00 weekly. Medical injection Branch hydroxyprog 2023-0 Yes 275mg inject 1.1 [facility] esterone,PF 1-09 mL under ity of , 275 00:00: the skin [place] mg/1.1 mL 00 weekly. Medical injection Branch hydroxyprog 2023-0 Yes [id number] 275mg inject 1.1 [facility] esterone,PF 1-09 mL under ity of , 275 00:00: the skin [place] mg/1.1 mL 00 weekly. Medical injection Branch hydroxyprog 2023-0 Yes 275mg inject 1.1 [facility] esterone,PF 1-09 mL under ity of , 275 00:00: the skin [place] mg/1.1 mL 00 weekly. Medical injection Branch hydroxyprog 2023-0 Yes [id number] 275mg inject 1.1 [facility] esterone,PF 1-09 mL under ity of , 275 00:00: the skin [place] mg/1.1 mL 00 weekly. Medical injection Branch hydroxyprog 2023-0 Yes 275mg inject 1.1 [facility] esterone,PF 1-09 mL under ity of , 275 00:00: the skin [place] mg/1.1 mL 00 weekly. Medical injection Branch hydroxyprog 2023-0 Yes [id number] 275mg inject 1.1 [facility] esterone,PF 1-09 mL under ity of , 275 00:00: the skin [place] mg/1.1 mL 00 weekly. Medical injection Branch hydroxyprog 2023-0 Yes 275mg inject 1.1 [facility] esterone,PF 1-09 mL under ity of , 275 00:00: the skin [place] mg/1.1 mL 00 weekly. Medical injection Branch hydroxyprog 2023-0 Yes [id number] 275mg inject 1.1 [facility] esterone,PF 1-09 mL under ity of , 275 00:00: the skin [place] mg/1.1 mL 00 weekly. Medical injection Branch hydroxyprog 2023-0 Yes 275mg inject 1.1 [facility] esterone,PF 1-09 mL under ity of , 275 00:00: the skin [place] mg/1.1 mL 00 weekly. Medical injection Branch hydroxyprog 2023-0 Yes [id number] 275mg inject 1.1 [facility] esterone,PF 1-09 mL under ity of , 275 00:00: the skin [place] mg/1.1 mL 00 weekly. Medical injection Branch hydroxyprog 2023-0 Yes 275mg inject 1.1 [facility] esterone,PF 1-09 mL under ity of , 275 00:00: the skin [place] mg/1.1 mL 00 weekly. Medical injection Branch hydroxyprog 2023-0 Yes [id number] 275mg inject 1.1 [facility] esterone,PF 1-09 mL under ity of , 275 00:00: the skin [place] mg/1.1 mL 00 weekly. Medical injection Branch hydroxyprog 2023-0 Yes 275mg inject 1.1 [facility] esterone,PF 1-09 mL under ity of , 275 00:00: the skin [place] mg/1.1 mL 00 weekly. Medical injection Branch hydroxyprog 2023-0 Yes [id number] 275mg inject 1.1 [facility] esterone,PF 1-09 mL under ity of , 275 00:00: the skin [place] mg/1.1 mL 00 weekly. Medical injection Branch hydroxyprog 2023-0 Yes 275mg inject 1.1 [facility] esterone,PF 1-09 mL under ity of , 275 00:00: the skin [place] mg/1.1 mL 00 weekly. Medical injection Branch hydroxyprog 2023-0 Yes [id number] 275mg inject 1.1 [facility] esterone,PF 1-09 mL under ity of , 275 00:00: the skin [place] mg/1.1 mL 00 weekly. Medical injection Branch hydroxyprog 2023-0 Yes 275mg inject 1.1 [facility] esterone,PF 1-09 mL under ity of , 275 00:00: the skin [place] mg/1.1 mL 00 weekly. Medical injection Branch hydroxyprog 2023-0 Yes [id number] 275mg inject 1.1 [facility] esterone,PF 1-09 mL under ity of , 275 00:00: the skin [place] mg/1.1 mL 00 weekly. Medical injection Branch hydroxyprog 2023-0 Yes 275mg inject 1.1 [facility] esterone,PF 1-09 mL under ity of , 275 00:00: the skin [place] mg/1.1 mL 00 weekly. Medical injection Branch hydroxyprog 2023-0 Yes [id number] 275mg inject 1.1 [facility] esterone,PF 1-09 mL under ity of , 275 00:00: the skin [place] mg/1.1 mL 00 weekly. Medical injection Branch hydroxyprog 2023-0 Yes 275mg inject 1.1 [facility] esterone,PF 1-09 mL under ity of , 275 00:00: the skin [place] mg/1.1 mL 00 weekly. Medical injection Branch hydroxyprog 2023-0 Yes [id number] 275mg inject 1.1 [facility] esterone,PF 1-09 mL under ity of , 275 00:00: the skin [place] mg/1.1 mL 00 weekly. Medical injection Branch hydroxyprog 2023-0 Yes 275mg inject 1.1 [facility] esterone,PF 1-09 mL under ity of , 275 00:00: the skin [place] mg/1.1 mL 00 weekly. Medical injection Branch hydroxyprog 2023-0 Yes [id number] 275mg inject 1.1 [facility] esterone,PF 1-09 mL under ity of , 275 00:00: the skin [place] mg/1.1 mL 00 weekly. Medical injection Branch hydroxyprog 2023-0 Yes 275mg inject 1.1 [facility] esterone,PF 1-09 mL under ity of , 275 00:00: the skin [place] mg/1.1 mL 00 weekly. Medical injection Branch hydroxyprog 2023-0 Yes [id number] 275mg inject 1.1 [facility] esterone,PF 1-09 mL under ity of , 275 00:00: the skin [place] mg/1.1 mL 00 weekly. Medical injection Branch hydroxyprog 2023-0 Yes 275mg inject 1.1 [facility] esterone,PF 1-09 mL under ity of , 275 00:00: the skin [place] mg/1.1 mL 00 weekly. Medical injection Branch hydroxyprog 2023-0 Yes [id number] 275mg inject 1.1 [facility] esterone,PF 1-09 mL under ity of , 275 00:00: the skin [place] mg/1.1 mL 00 weekly. Medical injection Branch hydroxyprog 2023-0 Yes 275mg inject 1.1 [facility] esterone,PF 1-09 mL under ity of , 275 00:00: the skin [place] mg/1.1 mL 00 weekly. Medical injection Branch hydroxyprog 2023-0 Yes [id number] 275mg inject 1.1 [facility] esterone,PF 1-09 mL under ity of , 275 00:00: the skin [place] mg/1.1 mL 00 weekly. Medical injection Branch hydroxyprog 2023-0 Yes 275mg inject 1.1 [facility] esterone,PF 1-09 mL under ity of , 275 00:00: the skin [place] mg/1.1 mL 00 weekly. Medical injection Branch hydroxyprog 2023-0 Yes [id number] 275mg inject 1.1 [facility] esterone,PF 1-09 mL under ity of , 275 00:00: the skin [place] mg/1.1 mL 00 weekly. Medical injection Branch hydroxyprog 2023-0 Yes 275mg inject 1.1 [facility] esterone,PF 1-09 mL under ity of , 275 00:00: the skin [place] mg/1.1 mL 00 weekly. Medical injection Branch hydroxyprog 2023-0 Yes [id number] 275mg inject 1.1 [facility] esterone,PF 1-09 mL under ity of , 275 00:00: the skin [place] mg/1.1 mL 00 weekly. Medical injection Branch hydroxyprog 2023-0 Yes 275mg inject 1.1 [facility] esterone,PF 1-09 mL under ity of , 275 00:00: the skin [place] mg/1.1 mL 00 weekly. Medical injection Branch hydroxyprog 2023-0 Yes [id number] 275mg inject 1.1 [facility] esterone,PF 1-09 mL under ity of , 275 00:00: the skin [place] mg/1.1 mL 00 weekly. Medical injection Branch hydroxyprog 2023-0 Yes 275mg inject 1.1 [facility] esterone,PF 1-09 mL under ity of , 275 00:00: the skin [place] mg/1.1 mL 00 weekly. Medical injection Branch hydroxyprog 2023-0 Yes [id number] 275mg inject 1.1 [facility] esterone,PF 1-09 mL under ity of , 275 00:00: the skin [place] mg/1.1 mL 00 weekly. Medical injection Branch hydroxyprog 2023-0 Yes 275mg inject 1.1 [facility] esterone,PF 1-09 mL under ity of , 275 00:00: the skin [place] mg/1.1 mL 00 weekly. Medical injection Branch hydroxyprog 2023-0 Yes [id number] 275mg inject 1.1 [facility] esterone,PF 1-09 mL under ity of , 275 00:00: the skin [place] mg/1.1 mL 00 weekly. Medical injection Branch hydroxyprog 2023-0 2023- No 275mg inject 1.1 [facility] esterone,PF 1-09 05-25 mL under ity of , 275 00:00: 00:00 the skin [place] mg/1.1 mL 00 :00 weekly. Medical injection Branch hydroxyprog 2023-0 2023- No [id number] 275mg inject 1.1 [facility] esterone,PF 1- 05-25 mL under ity of , 275 00:00: 00:00 the skin [place] mg/1.1 mL 00 :00 weekly. Medical injection Branch hydroxyprog 2022- No 275mg inject 1.1 [facility] esterone,PF 1- 05-25 mL under ity of , 275 00:00: 00:00 the skin [place] mg/1.1 mL 00 :00 weekly. Medical injection Branch hydroxyprog 2022- No [id number] 275mg inject 1.1 [facility] esterone,PF - 05-25 mL under ity of , 275 00:00: 00:00 the skin [place] mg/1.1 mL 00 :00 weekly. Medical injection Branch hydroxyprog 2021-02 Yes [id number] 250mg 1 mL by [facility] esterone [facility] ity o f caproate, 00:00: lar route Jamal as ppres, 250 00 weekly. Medica l mg/mL Branch injection hydroxyprog 2021-02- No [id number] 250mg 1 mL by [facility] esterone 03-07 [facility] ity of caproate, 00:00: 00:00 lar [...] (1 mL) Branch injection hydroxyprog 2021-02 Yes [id number] 250mg 1 mL by [facility] esterone 2-15 [facility] ity o f 250 mg/mL 00:00: lar route [place] as injection 00 weekly. Medical Branch hydroxyprog 2021-02 Yes [id number] 250mg 1 mL by [place] esterone 2-15 [facility] ity o f 250 mg/mL 00:00: lar route [place] as injection 00 weekly. Medical Branch hydroxyprog 2021-02- No [id number] 250mg 1 mL by [place] esterone 2-15 -09 [facility] ity of 250 [...] SECONDS THEN SPIT OUT TWICE DAILY chlorhexidi 2022-1 Yes AFTER Unive rs ne 0.12 % [...] No AFTER Univ ers ne 0.12 % -07-21 BRUSHING ity o f mouthwash 00:00: 00:00 TEETH, [place] 00 :00 SWISH 15ML Medical IN MOUTH Branch FOR 30 SECONDS THEN SPIT OUT TWICE DAILY 2021-02 Yes Take by Univer s 25/iron 0-13 mouth. ity of fum/folic/d 09:26: [facility] 35 Medical (-1 Branch ORAL) 2021-02 Yes Take by Univer s 25/iron 0-13 mouth. ity of fum/folic/d 09:26: [facility] 35 Medical (-1 Branch ORAL) 2021-02 Yes Take by Univer s 25/iron 0-13 mouth. ity of fum/folic/d 09:26: [facility] 35 Medical (-1 Branch ORAL) 2021-02 Yes Take by Univer s 25/iron 0-13 mouth. ity of fum/folic/d 09:26: [facility] 35 Medical (-1 Branch ORAL) 2021-02 Yes Take by Univer s 25/iron 0-13 mouth. ity of fum/folic/d 09:26: [facility] 35 Medical (-1 Branch ORAL) 2021-02 Yes Take by Univer s 25/iron 0-13 mouth. ity of fum/folic/d 09:26: [facility] 35 Medical (-1 Branch ORAL) 2021-02 Yes Take by Univer s 25/iron 0-13 mouth. ity of fum/folic/d 09:26: [facility] 35 Medical (-1 Branch ORAL) 2021-02 Yes Take by Univer s 25/iron 0-13 mouth. ity of fum/folic/d 09:26: [facility] 35 Medical (-1 Branch ORAL) 2021-02 Yes Take by Univer s 25/iron 0-13 mouth. ity of fum/folic/d 09:26: [facility] 35 Medical (-1 Branch ORAL) 2021-02 Yes Take by Univer s 25/iron 0-13 mouth. ity of fum/folic/d 09:26: [facility] 35 Medical (-1 Branch ORAL) 2021-02 Yes Take by Univer s 25/iron 0-13 mouth. ity of fum/folic/d 09:26: [facility] 35 Medical (-1 Branch ORAL) 2021-02 Yes Take by Univer s 25/iron 0-13 mouth. ity of fum/folic/d 09:26: [facility] 35 Medical (-1 Branch ORAL) 2021-02 Yes Take by Univer s 25/iron 0-13 mouth. ity of fum/folic/d 09:26: [facility] 35 Medical (-1 Branch ORAL) 2021-02 Yes Take by Univer s 25/iron 0-13 mouth. ity of fum/folic/d 09:26: [facility] 35 Medical (-1 Branch ORAL) 2021-02 Yes Take by Univer s 25/iron 0-13 mouth. ity of fum/folic/d 09:26: [facility] 35 Medical (-1 Branch ORAL) 2021-02 Yes Take by Univer s 25/iron 0-13 mouth. ity of fum/folic/d 09:26: [facility] 35 Medical (-1 Branch ORAL) 2021-02 Yes Take by Univer s 25/iron 0-13 mouth. ity of fum/folic/d 09:26: [facility] 35 Medical (-1 Branch ORAL) 2021-02 Yes Take by Univer s 25/iron 0-13 mouth. ity of fum/folic/d 09:26: [facility] 35 Medical (-1 Branch ORAL) 2021-02 Yes Take by Univer s 25/iron 0-13 mouth. ity of fum/folic/d 09:26: [facility] 35 Medical (-1 Branch ORAL) 2021-02 Yes Take by Univer s 25/iron 0-13 mouth. ity of fum/folic/d 09:26: [facility] 35 Medical (-1 Branch ORAL) 2021-02 Yes Take by Univer s 25/iron 0-13 mouth. ity of fum/folic/d 09:26: [facility] 35 Medical (-1 Branch ORAL) 2021-02 Yes Take by Univer s 25/iron 0-13 mouth. ity of fum/folic/d 09:26: [facility] 35 Medical (-1 Branch ORAL) 2021-02 Yes Take by Univer s 25/iron 0-13 mouth. ity of fum/folic/d 09:26: [facility] 35 Medical (-1 Branch ORAL) 2021-02 Yes Take by Univer s 25/iron 0-13 mouth. ity of fum/folic/d 09:26: [facility] 35 Medical (-1 Branch ORAL) 2021-02 Yes Take by Univer s 25/iron 0-13 mouth. ity of fum/folic/d 09:26: [facility] 35 Medical (-1 Branch ORAL) 2021-02 Yes Take by Univer s 25/iron 0-13 mouth. ity of fum/folic/d 09:26: [place] [id number] Medical (-1 Branch ORAL) 2021-02 Yes Take by Univer s 25/iron 0-13 mouth. ity of fum/folic/d 09:26: [place] [id number] Medical (-1 Branch ORAL) 2021-02 Yes Take by Univer s 25/iron 0-13 mouth. ity of fum/folic/d 09:26: [place] [id number] Medical (-1 Branch ORAL) 2021-02 Yes Take by Univer s 25/iron 0-13 mouth. ity of fum/folic/d 09:26: [place] [id number] Medical (-1 Branch ORAL) 2021-02 Yes Take by Univer s 25/iron 0-13 mouth. ity of fum/folic/d 09:26: [place] [id number] Medical (-1 Branch ORAL) 2021-02 Yes Take by Univer s 25/iron 0-13 mouth. ity of fum/folic/d 09:26: [facility] 35 Medical (-1 Branch ORAL) 2021-02 Yes Take by Univer s 25/iron 0-13 mouth. ity of fum/folic/d 09:26: [facility] 35 Medical (-1 Branch ORAL) 2021-02 Yes Take by Univer s 25/iron 0-13 mouth. ity of fum/folic/d 09:26: [facility] 35 Medical (-1 Branch ORAL) 2021-02 Yes Take by Univer s 25/iron 0-13 mouth. ity of fum/folic/d 09:26: [facility] 35 Medical (-1 Branch ORAL) 2021-02 Yes Take by Univer s 25/iron 0-13 mouth. ity of fum/folic/d 09:26: [facility] Medical (-1 Branch ORAL) 2021-02 Yes Take by Univer s 25/iron 0-13 mouth. ity of fum/folic/d 09:26: [facility] Medical (-1 Branch ORAL) 2021-02 Yes Take by Univer s 25/iron 0-13 mouth. ity of fum/folic/d 09:26: [facility] Medical (-1 Branch ORAL) 2021-02 Yes Take by Univer s 25/iron 0-13 mouth. ity of fum/folic/d 09:26: [facility] Medical (-1 Branch ORAL) 2021-02 Yes Take by Univer s 25/iron 0-13 mouth. ity of fum/folic/d 09:26: [facility] Medical (-1 Branch ORAL) 2021-02 Yes Take by Univer s 25/iron 0-13 mouth. ity of fum/folic/d 09:26: [facility] Medical (-1 Branch ORAL) 2021-02 Yes Take by Univer s 25/iron 0-13 mouth. ity of fum/folic/d 09:26: [facility] Medical (-1 Branch ORAL) PROAIR HFA Yes [...] mcg/actuati 00:00: [place] on inhaler Medical Branch [facility] HFA Yes Univers 90 8-30 ity of mcg/actuati 00:00: [place] on inhaler Medical Branch PROAIR HFA Yes Univers 90 8-30 ity of mcg/actuati 00:00: [place] on inhaler Medical Branch PROAIR HFA Yes Univers 90 8-30 ity of mcg/actuati 00:00: [place] on inhaler Medical Branch PROAIR HFA Yes Univers 90 8-30 ity of mcg/actuati 00:00: [place] on inhaler Medical Branch [facility] HFA Yes Univers 90 8-30 ity of mcg/actuati 00:00: [place] on inhaler Medical Branch PROAIR HFA Yes Univers 90 8-30 ity of mcg/actuati 00:00: [place] on inhaler 00 Medical Branch [facility] HFA Yes Univers 90 8-30 ity of mcg/actuati 00:00: [place] on inhaler Medical Branch PROAIR HFA Yes Univers 90 8-30 ity of mcg/actuati 00:00: [place] on inhaler 00 Medical Branch [facility] HFA Yes Univers 90 8-30 ity of mcg/actuati 00:00: [place] on inhaler Medical Branch PROAIR HFA 0 Yes Univers 90 8-30 ity of mcg/actuati 00:00: [place] on inhaler 00 Medical Branch PROAIR HFA 0 3- No Univer s 90 8-30 05-27 ity of mcg/actuati 00:00: 00:00 [place] on inhaler 00 :00 Medical Branch norgestimat 2021-0 Yes [id number] 1{tbl} Take 1 Univers e-ethinyl 8-16 tablet by ity o f estradioL 00:[place]TRI-SPRINT 00 the Medical ) morning. Branch 0.18/0.215/ 0.25 mg-35 mcg (28) tablet norgestimat 2021- No [id number] 1{tbl} Take 1 Univers e-ethinyl 8-16 10-13 tablet by ity of estradioL 00:00: 00:00 mouth in [place] (TRI-SPRINT 00 :00 the Medical EC) morning. Branch 0.18/0.215/ 0.25 mg-35 mcg (28) tablet norgestimat 2020-02 Yes [id number] 1{tbl} Take 1 Univers e-ethinyl 1-22 tablet by ity o f estradioL 00:00: mouth [place] (ORTHO 00 daily. [facility] [place] [id number] 0.18/0.215/ 0.25 mg-35 mcg (28) tablet norgestimat 2020-02- No [id number] 1{tbl} Take 1 Univers e-ethinyl 1-22 10-13 tablet by ity of estradioL 00:00: 00:00 mouth [place] (ORTHO 00 :00 [facility]. [facility] 0.18/0.215/ 0.25 mg-35 mcg (28) tablet norgestimat 2020-02- No [id number] 1{tbl} Take 1 Univers e-ethinyl 1-22 10-13 tablet by ity of estradioL 00:00: 00:00 mouth [place] (ORTHO 00 :00 daily. [facility] [address] 0.18/0.215/ 0.25 mg-35 mcg (28) tablet Immunizations Ordered Immunization Filled Date Status Comments Sour ce Name Immunization Name [facility] 2022-05-26 Completed University of 00:00:00 [facility] TDAP 2022-05-26 Completed University of 00:00:00 [facility] TDAP 2022-05-26 Completed University of 00:00: [facility] TDAP 2022-05-26 Completed University of 00:00: [facility] TDAP 2022-05-26 Completed University of 00:00:00 [facility] TDAP 2022-05-26 Completed University of 00:00:00 [facility] TDAP 2022-05-26 Completed University of 00:00:00 [facility] TDAP 2022-05-26 Completed University of 00:00:00 [facility] Branch TDAP 2022-05-26 Completed University of 00:00:00 [place] [facility] TDAP 2022-05-26 Completed University of 00:00:00 [place] [facility] TDAP 2022-05-26 Completed University of 00:00:00 [facility] Branch TDAP 2022-05-26 Completed University of 00:00:00 [facility] Branch TDAP 2022-05-26 Completed University of 00:00:00 [facility] Branch TDAP 2022-05-26 Completed University of 00:00:00 [facility] Branch TDAP 2022-05-26 Completed University of 00:00:00 [facility] Branch TDAP 2022-05-26 Completed University of 00:00:00 [place] [facility] TDAP 2022-05-26 Completed University of 00:00:00 [facility] TDAP 2022-05-26 Completed University of 00:00:00 [facility] TDAP 2022-05-26 Completed University of 00:00:00 [facility] Branch TDAP 2022-05-26 Completed University of 00:00:00 [facility] Branch TDAP 2022-05-26 Completed University of 00:00:00 [facility] Branch TDAP 2022-05-26 Completed University of 00:00:00 [facility] Branch TDAP 2022-05-26 Completed University of 00:00:00 [facility] TDAP 2022-05-26 Completed University of 00:00:00 [facility] TDAP 2022-05-26 Completed University of 00:00:00 [facility] TDAP 2022-05-26 Completed University of 00:00:00 [facility] TDAP 2020-06-09 Completed University of 00:00:00 [facility] Branch TDAP 2020-06-09 Completed University of 00:00:00 [place] [facility] TDAP 2020-06-09 Completed University of 00:00:00 [place] [facility] TDAP 2020-06-09 Completed University of 00:00:00 [place] [facility] TDAP 2020-06-09 Completed University of 00:00:00 [facility] TDAP 2020-06-09 Completed University of 00:00:00 [facility] Branch TDAP 2020-06-09 Completed University of 00:00:00 [place] [facility] TDAP 2020-06-09 Completed University of 00:00:00 [place] [facility] TDAP 2020-06-09 Completed University of 00:00:00 [place] [facility] TDAP 2020-06-09 Completed University of 00:00:00 [place] [facility] TDAP 2020-06-09 Completed University of 00:00:00 [place] [facility] TDAP 2020-06-09 Completed University of 00:00:00 [place] [facility] TDAP 2020-06-09 Completed University of 00:00:00 [place] [facility] TDAP 2020-06-09 Completed University of 00:00:00 [place] [facility] TDAP 2020-06-09 Completed University of 00:00:00 [place] [facility] TDAP 2020-06-09 Completed University of 00:00:00 [place] [facility] TDAP 2020-06-09 Completed University of 00:00:00 [place] [facility] TDAP 2020-06-09 Completed University of 00:00:00 [place] [facility] TDAP 2020-06-09 Completed University of 00:00:00 [place] [facility] TDAP 2020-06-09 Completed University of 00:00:00 [place] [facility] TDAP 2020-06-09 Completed University of 00:00:00 [place] [facility] TDAP 2020-06-09 Completed University of 00:00:00 [facility] Branch TDAP 2020-06-09 Completed University of 00:00:00 [place] [facility] TDAP 2020-06-09 Completed University of 00:00:00 [place] [facility] TDAP 2020-06-09 Completed University of 00:00:00 [facility] Branch TDAP 2020-06-09 Completed University of 00:00:00 [place] [facility] TDAP 2020-06-09 Completed University of 00:00:00 [place] [facility] TDAP 2020-06-09 Completed University of 00:00:00 [place] [facility] TDAP 2020-06-09 Completed University of 00:00:00 [place] [facility] TDAP 2020-06-09 Completed University of 00:00:00 [place] [facility] TDAP 2020-06-09 Completed University of 00:00:00 [place] [facility] TDAP 2020-06-09 Completed University of 00:00:00 [place] [facility] TDAP 2020-06-09 Completed University of 00:00:00 [place] [facility] TDAP 2020-06-09 Completed University of 00:00:00 [place] [facility] TDAP 2020-06-09 Completed University of 00:00:00 [place] [facility] TDAP 2020-06-09 Completed University of 00:00:00 [place] [facility] TDAP 2020-06-09 Completed University of 00:00:00 [place] [facility] TDAP 2020-06-09 Completed University of 00:00:00 [place] [facility] TDAP 2020-06-09 Completed University of 00:00:00 [place] [facility] TDAP 2020-06-09 Completed University of 00:00:00 [place] [facility] TDAP 2020-06-09 Completed University of 00:00:00 [place] [facility] TDAP 2020-06-09 Completed University of 00:00:00 [place] [facility] TDAP 2020-06-09 Completed University of 00:00:00 [place] [facility] TDAP 2020-06-09 Completed University of 00:00:00 [place] [facility] TDAP 2020-06-09 Completed University of 00:00:00 [place] [facility] TDAP 2020-06-09 Completed University of 00:00:00 [place] [facility] TDAP 2020-06-09 Completed University of 00:00:00 [facility] Branch TDAP 2020-06-09 Completed University of 00:00:00 [place] [facility] TDAP 2020-06-09 Completed University of 00:00:00 [place] [facility] TDAP 2020-06-09 Completed University of 00:00:00 [place] [facility] TDAP 2020-06-09 Completed University of 00:00:00 [place] [facility] TDAP 2020-06-09 Completed University of 00:00:00 [place] [facility] TDAP 2020-06-09 Completed University of 00:00:00 [place] [facility] TDAP 2020-06-09 Completed University of 00:00:00 [place] [facility] TDAP 2020-06-09 Completed University of 00:00:00 [place] [facility] TDAP 2020-06-09 Completed University of 00:00:00 [place] [facility] TDAP 2020-06-09 Completed University of 00:00:00 [place] [facility] TDAP 2020-06-09 Completed University of 00:00:00 [place] [facility] TDAP 2020-06-09 Completed University of 00:00:00 [place] [facility] TDAP 2020-06-09 Completed University of 00:00:00 [facility] TDAP 2020-06-09 Completed University of 00:00:00 [place] [facility] [place] TDAP 2020-06-09 Completed University of 00:00:00 [place] [facility] [place] TDAP 2020-06-09 Completed University of 00:00:00 [facility] Influenza Virus 2020-01-21 Completed Universit y of [...] Vaccine Quad .5 mL 00:00:00 [place] [facility] 6+ MO Branch Influenza Virus 2020-01-21 Completed Universit y of Vaccine Quad .5 mL 00:00:00 [place] [facility] 6+ MO Branch Influenza Virus 2020-01-21 Completed Universit y of Vaccine Quad .5 mL 00:00:00 [place] [facility] IM 6+ MO Branch Influenza Virus 2020-01-21 Completed Universit y of Vaccine Quad .5 mL 00:00:00 [place] [facility] 6+ MO Branch Meningococcal 2018-10-18 Completed University of Vaccine 00:00:00 [facility] TDAP 2018-10-18 Completed University of 00:00:00 [facility] Meningococcal B, OMV 2018-10-18 Completed Univ ersity of 00:00:00 [facility] Meningococcal 2018-10-18 Completed University of Vaccine 00:00:00 [facility] TDAP 2018-10-18 Completed University of 00:00:00 [facility] Meningococcal B, OMV 2018-10-18 Completed Univ ersity of 00:00:00 [facility] Meningococcal 2018-10-18 Completed University of Vaccine 00:00:00 [facility] TDAP 2018-10-18 Completed University of 00:00:00 [facility] Meningococcal B, OMV 2018-10-18 Completed Univ ersity of 00:00:00 [facility] Branch Meningococcal 2018-10-18 Completed University of Vaccine 00:00:00 [facility] TDAP 2018-10-18 Completed University of 00:00:00 [facility] Meningococcal B, OMV 2018-10-18 Completed Univ ersity of 00:00:00 [facility] Meningococcal 2018-10-18 Completed University of Vaccine 00:00:00 [facility] TDAP 2018-10-18 Completed University of 00:00:00 [facility] Meningococcal B, OMV 2018-10-18 Completed Univ ersity of 00:00:00 [facility] Meningococcal 2018-10-18 Completed University of Vaccine 00:00:00 [facility] TDAP 2018-10-18 Completed University of 00:00:00 [facility] Meningococcal B, OMV 2018-10-18 Completed Univ ersity of 00:00:00 [facility] Meningococcal 2018-10-18 Completed University of Vaccine 00:00:00 [facility] TDAP 2018-10-18 Completed University of 00:00:00 [facility] Meningococcal B, OMV 2018-10-18 Completed Univ ersity of 00:00:00 [facility] Meningococcal 2018-10-18 Completed University of Vaccine 00:00:00 [facility] TDAP 2018-10-18 Completed University of 00:00:00 [facility] Meningococcal B, OMV 2018-10-18 Completed Univ ersity of 00:00:00 [facility] Meningococcal 2018-10-18 Completed University of Vaccine 00:00:00 [facility] TDAP 2018-10-18 Completed University of 00:00:00 [facility] Meningococcal B, OMV 2018-10-18 Completed Univ ersity of 00:00:00 [facility] Meningococcal 2018-10-18 Completed University of Vaccine 00:00:00 [facility] TDAP 2018-10-18 Completed University of 00:00:00 [facility] Meningococcal B, OMV 2018-10-18 Completed Univ ersity of 00:00:00 [facility] Meningococcal 2018-10-18 Completed University of Vaccine 00:00:00 [facility] Branch TDAP 2018-10-18 Completed University of 00:00:00 [facility] Branch Meningococcal B, OMV 2018-10-18 Completed Univ ersity of 00:00:00 [place] [facility] Meningococcal 2018-10-18 Completed University of Vaccine 00:00:00 [facility] TDAP 2018-10-18 Completed University of 00:00:00 [facility] Branch Meningococcal B, OMV 2018-10-18 Completed Univ ersity of 00:00:00 [facility] Branch Meningococcal 2018-10-18 Completed University of Vaccine 00:00:00 [facility] TDAP 2018-10-18 Completed University of 00:00:00 [facility] Branch Meningococcal B, OMV 2018-10-18 Completed Univ ersity of 00:00:00 [facility] Branch Meningococcal 2018-10-18 Completed University of Vaccine 00:00:00 [facility] TDAP 2018-10-18 Completed University of 00:00:00 [facility] Meningococcal B, OMV 2018-10-18 Completed Univ ersity of 00:00:00 [facility] Meningococcal 2018-10-18 Completed University of Vaccine 00:00:00 [facility] TDAP 2018-10-18 Completed University of 00:00:00 [facility] Meningococcal B, OMV 2018-10-18 Completed Univ ersity of 00:00:00 [facility] Meningococcal 2018-10-18 Completed University of Vaccine 00:00:00 [facility] TDAP 2018-10-18 Completed University of 00:00:00 [facility] Meningococcal B, OMV 2018-10-18 Completed Univ ersity of 00:00:00 [facility] Branch Meningococcal 2018-10-18 Completed University of Vaccine 00:00:00 [facility] TDAP 2018-10-18 Completed University of 00:00:00 [facility] Branch Meningococcal B, OMV 2018-10-18 Completed Univ ersity of 00:00:00 [place] [facility] Meningococcal 2018-10-18 Completed University of Vaccine 00:00:00 [facility] Branch TDAP 2018-10-18 Completed University of 00:00:00 [facility] Meningococcal B, OMV 2018-10-18 Completed Univ ersity of 00:00:00 [place] [facility] Meningococcal 2018-10-18 Completed University of Vaccine 00:00:00 [facility] TDAP 2018-10-18 Completed University of 00:00:00 [facility] Meningococcal B, OMV 2018-10-18 Completed Univ ersity of 00:00:00 [facility] Branch Meningococcal 2018-10-18 Completed University of Vaccine 00:00:00 [facility] TDAP 2018-10-18 Completed University of 00:00:00 [facility] Meningococcal B, OMV 2018-10-18 Completed Univ ersity of 00:00:00 [facility] Meningococcal 2018-10-18 Completed University of Vaccine 00:00:00 [facility] Branch TDAP 2018-10-18 Completed University of 00:00:00 [facility] Meningococcal B, OMV 2018-10-18 Completed Univ ersity of 00:00:00 [facility] Meningococcal 2018-10-18 Completed University of Vaccine 00:00:00 [facility] TDAP 2018-10-18 Completed University of 00:00:00 [facility] Meningococcal B, OMV 2018-10-18 Completed Univ ersity of 00:00:00 [facility] Meningococcal 2018-10-18 Completed University of Vaccine 00:00:00 [facility] TDAP 2018-10-18 Completed University of 00:00:00 [facility] Meningococcal B, OMV 2018-10-18 Completed Univ ersity of 00:00:00 [facility] Meningococcal 2018-10-18 Completed University of Vaccine 00:00:00 [facility] TDAP 2018-10-18 Completed University of 00:00:00 [facility] Meningococcal B, OMV 2018-10-18 Completed Univ ersity of 00:00:00 [facility] Meningococcal 2018-10-18 Completed University of Vaccine 00:00:00 [facility] TDAP 2018-10-18 Completed University of 00:00:00 [facility] Meningococcal B, OMV 2018-10-18 Completed Univ ersity of 00:00:00 [facility] Meningococcal 2018-10-18 Completed University of Vaccine 00:00:00 [facility] TDAP 2018-10-18 Completed University of 00:00:00 [facility] Meningococcal B, OMV 2018-10-18 Completed Univ ersity of 00:00:00 [facility] Branch Meningococcal 2018-10-18 Completed University of Vaccine 00:00:00 [place] [facility] TDAP 2018-10-18 Completed University of 00:00:00 [facility] Meningococcal B, OMV 2018-10-18 Completed Univ ersity of 00:00:00 [place] [facility] Meningococcal 2018-10-18 Completed University of Vaccine 00:00:00 [place] [facility] TDAP 2018-10-18 Completed University of 00:00:00 [facility] Meningococcal B, OMV 2018-10-18 Completed Univ ersity of 00:00:00 [place] [facility] Meningococcal 2018-10-18 Completed University of Vaccine 00:00:00 [place] [facility] TDAP 2018-10-18 Completed University of 00:00:00 [facility] Meningococcal B, OMV 2018-10-18 Completed Univ ersity of 00:00:00 [facility] Meningococcal 2018-10-18 Completed University of Vaccine 00:00:00 [place] [facility] TDAP 2018-10-18 Completed University of 00:00:00 [facility] Meningococcal B, OMV 2018-10-18 Completed Univ ersity of 00:00:00 [facility] Branch Meningococcal 2018-10-18 Completed University of Vaccine 00:00:00 [facility] TDAP 2018-10-18 Completed University of 00:00:00 [facility] Meningococcal B, OMV 2018-10-18 Completed Univ ersity of 00:00:00 [facility] Meningococcal 2018-10-18 Completed University of Vaccine 00:00:00 [facility] TDAP 2018-10-18 Completed University of 00:00:00 [facility] Meningococcal B, OMV 2018-10-18 Completed [facility] 00:00:00 [facility] Meningococcal 2018-10-18 Completed [facility] of Vaccine 00:00:00 [facility] TDAP 2018-10-18 Completed [facility] 00:00:00 [facility] Meningococcal B, OMV 2018-10-18 Completed [facility] 00:00:00 [facility] Meningococcal 2018-10-18 Completed [facility] Vaccine 00:00:00 [facility] TDAP 2018-10-18 Completed [facility] 00:00:00 [facility] Meningococcal B, OMV 2018-10-18 Completed [facility] 00:00:00 [facility] Meningococcal 2018-10-18 Completed [facility] Vaccine 00:00:00 [facility] TDAP 2018-10-18 Completed [facility] 00:00:00 [facility] Meningococcal B, OMV 2018-10-18 Completed [facility] 00:00:00 [facility] Meningococcal 2018-10-18 Completed [facility] Vaccine 00:00:00 [facility] TDAP 2018-10-18 Completed [facility] 00:00:00 [facility] Meningococcal B, OMV 2018-10-18 Completed [facility] 00:00:00 [facility] Meningococcal 2018-10-18 Completed [facility] Vaccine 00:00:00 [facility] TDAP 2018-10-18 Completed [facility] 00:00:00 [facility] Meningococcal B, OMV 2018-10-18 Completed [facility] 00:00:00 [facility] Meningococcal 2018-10-18 Completed [facility] Vaccine 00:00:00 [facility] TDAP 2018-10-18 Completed [facility] 00:00:00 [facility] Meningococcal B, OMV 2018-10-18 Completed [facility] 00:00:00 [facility] Meningococcal 2018-10-18 Completed [facility] Polysaccharide 00:00:00 [facility] (groups A, C, Y and Branc h W-135) conjugate vaccine (MCV4P) Meningococcal 2018-10-18 Completed [facility] Vaccine 00:00:00 [facility] TDAP 2018-10-18 Completed [facility] 00:00:00 [facility] Meningococcal B, OMV 2018-10-18 Completed [facility] 00:00:00 [facility] Meningococcal 2018-10-18 Completed [facility] Polysaccharide 00:00:00 [facility] (groups A, C, Y and Branc h W-135) conjugate vaccine (MCV4P) Meningococcal 2018-10-18 Completed [facility] Vaccine 00:00:00 [facility] TDAP 2018-10-18 Completed [facility] 00:00:00 [facility] Meningococcal B, OMV 2018-10-18 Completed [facility] 00:00:00 [facility] Meningococcal 2018-10-18 Completed [facility] Polysaccharide 00:00:00 [place] [facility] (groups A, C, Y and Branc h W-135) conjugate vaccine (MCV4P) Meningococcal 2018-10-18 Completed [facility] Vaccine 00:00:00 [facility] TDAP 2018-10-18 Completed [facility] 00:00:00 [facility] Meningococcal B, OMV 2018-10-18 Completed [facility] 00:00:00 [facility] Meningococcal 2018-10-18 Completed [facility] Polysaccharide 00:00:00 [facility] (groups A, C, Y and Branc h W-135) conjugate vaccine (MCV4P) Meningococcal 2018-10-18 Completed [facility] Vaccine 00:00:00 [facility] TDAP 2018-10-18 Completed [facility] 00:00:00 [facility] Meningococcal B, OMV 2018-10-18 Completed [facility] 00:00:00 [facility] Meningococcal 2018-10-18 Completed [facility] Polysaccharide 00:00:00 [facility] (groups A, C, Y and Branc h W-135) conjugate vaccine (MCV4P) Meningococcal 2018-10-18 Completed [facility] Vaccine 00:00:00 [facility] TDAP 2018-10-18 Completed [facility] 00:00:00 [facility] Meningococcal B, OMV 2018-10-18 Completed [facility] 00:00:00 [facility] Meningococcal 2018-10-18 Completed [facility] Polysaccharide 00:00:00 [facility] (groups A, C, Y and Branc h W-135) conjugate vaccine (MCV4P) Meningococcal 2018-10-18 Completed [facility] Vaccine 00:00:00 [facility] TDAP 2018-10-18 Completed [facility] 00:00:00 [facility] Meningococcal B, OMV 2018-10-18 Completed [facility] 00:00:00 [facility] Meningococcal 2018-10-18 Completed [facility] Polysaccharide 00:00:00 [facility] (groups A, C, Y and Branc h W-135) conjugate vaccine (MCV4P) Meningococcal 2018-10-18 Completed [facility] Vaccine 00:00:00 [facility] TDAP 2018-10-18 Completed [facility] 00:00:00 [facility] Meningococcal B, OMV 2018-10-18 Completed [facility] 00:00:00 [facility] Meningococcal 2018-10-18 Completed [facility] Polysaccharide 00:00:00 [facility] (groups A, C, Y and Branc h W-135) conjugate vaccine (MCV4P) Meningococcal 2018-10-18 Completed [facility] Vaccine 00:00:00 [facility] TDAP 2018-10-18 Completed [facility] 00:00:00 [facility] Meningococcal B, OMV 2018-10-18 Completed [facility] 00:00:00 [facility] Meningococcal 2018-10-18 Completed [facility] Polysaccharide 00:00:00 [place] [facility] (groups A, C, Y and Branc h W-135) conjugate vaccine (MCV4P) Meningococcal 2018-10-18 Completed [facility] Vaccine 00:00:00 [facility] TDAP 2018-10-18 Completed [facility] 00:00:00 [facility] Meningococcal B, OMV 2018-10-18 Completed [facility] 00:00:00 [facility] Meningococcal 2018-10-18 Completed [facility] Polysaccharide 00:00:00 [facility] (groups A, C, Y and Branc h W-135) conjugate vaccine (MCV4P) Meningococcal 2018-10-18 Completed [facility] Vaccine 00:00:00 [facility] TDAP 2018-10-18 Completed [facility] 00:00:00 [facility] Meningococcal B, OMV 2018-10-18 Completed [facility] 00[facility]00:00 [facility] Meningococcal 2018-10-18 Completed [facility] Polysaccharide 00:00:00 [facility] (groups A, C, Y and Branc h W-135) conjugate vaccine (MCV4P) Meningococcal 2018-10-18 Completed [facility] Vaccine 00:00:00 [facility] TDAP 2018-10-18 Completed [facility] 00:00:00 [facility] Meningococcal B, OMV 2018-10-18 Completed [facility] 00:00:00 [facility] Meningococcal 2018-10-18 Completed [facility] Polysaccharide 00:00:00 [facility] (groups A, C, Y and Branc h W-135) conjugate vaccine (MCV4P) Meningococcal 2018-10-18 Completed [facility] Vaccine 00:00:00 [facility] TDAP 2018-10-18 Completed [facility] 00:00:00 [facility] Meningococcal B, OMV 2018-10-18 Completed [facility] 00:00:00 [facility] Meningococcal 2018-10-18 Completed [facility] Polysaccharide 00:00:00 [facility] (groups A, C, Y and Branc h W-135) conjugate vaccine (MCV4P) Meningococcal 2018-10-18 Completed [facility] Vaccine 00:00:00 [facility] TDAP 2018-10-18 Completed [facility] 00:00:00 [facility] Meningococcal B, OMV 2018-10-18 Completed [facility] 00:00:00 [facility] Meningococcal 2018-10-18 Completed [facility] Polysaccharide 00:00:00 [place] [facility] (groups A, C, Y and Branc h W-135) conjugate vaccine (MCV4P) Meningococcal 2018-10-18 Completed [facility] Vaccine 00:00:00 [facility] TDAP 2018-10-18 Completed [facility] 00:00:00 [facility] Meningococcal B, OMV 2018-10-18 Completed [facility] 00:00:00 [facility] Meningococcal 2018-10-18 Completed [facility] Polysaccharide 00:00:00 [facility] (groups A, C, Y and Branc h W-135) conjugate vaccine (MCV4P) Meningococcal 2018-10-18 Completed [facility] Vaccine 00:00:00 [facility] TDAP 2018-10-18 Completed [facility] of 00:00:00 [facility] Meningococcal B, OMV 2018-10-18 Completed [facility] 00:00:00 [facility] Meningococcal 2018-10-18 Completed [facility] Polysaccharide 00:00:00 [facility] (groups A, C, Y and Branc h W-135) conjugate vaccine (MCV4P) Meningococcal 2018-10-18 Completed [facility] Vaccine 00:00:00 [facility] TDAP 2018-10-18 Completed [facility] 00:00:00 [facility] Meningococcal B, OMV 2018-10-18 Completed [facility] 00:00:00 [facility] Meningococcal 2018-10-18 Completed [facility] Polysaccharide 00:00:00 [facility] (groups A, C, Y and Branc h W-135) conjugate vaccine (MCV4P) Meningococcal 2018-10-18 Completed [facility] Vaccine 00:00:00 [facility] TDAP 2018-10-18 Completed [facility] 00:00:00 [facility] Meningococcal B, OMV 2018-10-18 Completed [facility] 00:00:00 [facility] Meningococcal 2018-10-18 Completed [facility] Polysaccharide 00:00:00 [facility] (groups A, C, Y and Branc h W-135) conjugate vaccine (MCV4P) Meningococcal 2018-10-18 Completed [facility] Vaccine 00:00:00 [facility] TDAP 2018-10-18 Completed [facility] 00:00:00 [facility] Meningococcal B, OMV 2018-10-18 Completed [facility] 00:00:00 [facility] Meningococcal 2018-10-18 Completed [facility] Polysaccharide 00:00:00 [facility] (groups A, C, Y and Branc h W-135) conjugate vaccine (MCV4P) Meningococcal 2018-10-18 Completed [facility] Vaccine 00:00:00 [facility] TDAP 2018-10-18 Completed [facility] 00:00:00 [facility] Meningococcal B, OMV 2018-10-18 Completed [facility] 00:00:00 [facility] Meningococcal 2018-10-18 Completed [facility] Polysaccharide 00:00:00 [facility] (groups A, C, Y and Branc h W-135) conjugate vaccine (MCV4P) Meningococcal 2018-10-18 Completed [facility] Vaccine 00:00:00 [facility] TDAP 2018-10-18 Completed [facility] 00:00:00 [facility] Meningococcal B, OMV 2018-10-18 Completed [facility] 00:00:00 [facility] Meningococcal 2018-10-18 Completed [facility] Polysaccharide 00:00:00 [facility] (groups A, C, Y and Branc h W-135) conjugate vaccine (MCV4P) Meningococcal 2018-10-18 Completed [facility] Vaccine 00:00:00 [facility] TDAP 2018-10-18 Completed [facility] 00:00:00 [facility] Meningococcal B, OMV 2018-10-18 Completed [facility] 00:00:00 [facility] Meningococcal 2018-10-18 Completed [facility] Polysaccharide 00:00:00 [facility] (groups A, C, Y and Branc h W-135) conjugate vaccine (MCV4P) Meningococcal 2018-10-18 Completed [facility] Vaccine 00:00:00 [facility] TDAP 2018-10-18 Completed [facility] 00:00:00 [facility] Meningococcal B, OMV 2018-10-18 Completed [facility] 00:00:00 [facility] Meningococcal 2018-10-18 Completed [facility] Polysaccharide 00:00:00 [facility] (groups A, C, Y and Branc h W-135) conjugate vaccine (MCV4P) Meningococcal 2018-10-18 Completed [facility] Vaccine 00:00:00 [facility] TDAP 2018-10-18 Completed [facility] 00:00:00 [facility] Meningococcal B, OMV 2018-10-18 Completed [facility] 00:00:00 [facility] Meningococcal 2018-10-18 Completed [facility] Polysaccharide 00:00:00 [facility] (groups A, C, Y and Branc h W-135) conjugate vaccine (MCV4P) Meningococcal 2018-10-18 Completed [facility] Vaccine 00:00:00 [facility] TDAP 2018-10-18 Completed [facility] 00:00:00 [facility] Meningococcal B, OMV 2018-10-18 Completed [facility] 00:00:00 [facility] Meningococcal 2018-10-18 Completed [facility] Polysaccharide 00:00:00 [facility] (groups A, C, Y and Branc h W-135) conjugate vaccine (MCV4P) Meningococcal 2018-10-18 Completed [facility] Vaccine 00:00:00 [facility] TDAP 2018-10-18 Completed [facility] 00:00:00 [facility] Meningococcal B, OMV 2018-10-18 Completed [facility] 00:00:00 [facility] Meningococcal 2018-10-18 Completed [facility] Polysaccharide 00:00:00 [facility] (groups A, C, Y and Branc h W-135) conjugate vaccine (MCV4P) DTAP 2006-10-25 Completed [facility] 00:00:00 [facility] Hepatitis A Adult 2006-10-25 Completed [facility] 00:00:00 [facility] Polio (IPV/OPV) 2006-10-25 Completed [facility] 00:00:00 [facility] DTAP 2006-10-25 Completed [facility] 00:00:00 [facility] Hepatitis A Adult 2006-10-25 Completed [facility] 00:00:00 [facility] Polio (IPV/OPV) 2006-10-25 Completed [facility] 00:00:00 [facility] DTAP 2006-10-25 Completed [facility] of 00:00:00 [facility] Hepatitis A Adult 2006-10-25 Completed [facility] 00:00:00 [facility] Polio (IPV/OPV) 2006-10-25 Completed [facility] of 00:00:00 [facility] DTAP 2006-10-25 Completed [facility] 00:00:00 [facility] Hepatitis A Adult 2006-10-25 Completed [facility] 00:00:00 [facility] Polio (IPV/OPV) 2006-10-25 Completed [facility] 00:00:00 [facility] DTAP 2006-10-25 Completed [facility] 00:00:00 [facility] Hepatitis A Adult 2006-10-25 Completed [facility] 00:00:00 [facility] Polio (IPV/OPV) 2006-10-25 Completed [facility] 00:00:00 [facility] DTAP 2006-10-25 Completed [facility] 00:00:00 [facility] Hepatitis A Adult 2006-10-25 Completed [facility] 00:00:00 [facility] Polio (IPV/OPV) 2006-10-25 Completed [facility] 00:00:00 [facility] DTAP 2006-10-25 Completed [facility] 00:00:00 [facility] Hepatitis A Adult 2006-10-25 Completed [facility] 00:00:00 [facility] Polio (IPV/OPV) 2006-10-25 Completed [facility] of 00:00:00 [facility] DTAP 2006-10-25 Completed [facility] 00:00:00 [facility] Hepatitis A Adult 2006-10-25 Completed [facility] 00:00:00 [facility] Polio (IPV/OPV) 2006-10-25 Completed [facility] 00:00:00 [facility] DTAP 2006-10-25 Completed [facility] 00:00:00 [facility] Hepatitis A Adult 2006-10-25 Completed [facility] 00:00:00 [facility] Polio (IPV/OPV) 2006-10-25 Completed [facility] 00:00:00 [facility] DTAP 2006-10-25 Completed [facility] 00:00:00 [facility] Hepatitis A Adult 2006-10-25 Completed [facility] 00:00:00 [facility] Polio (IPV/OPV) 2006-10-25 Completed [facility] of 00:00:00 [facility] DTAP 2006-10-25 Completed [facility] 00:00:00 [facility] Hepatitis A Adult 2006-10-25 Completed [facility] 00:00:00 [facility] Polio (IPV/OPV) 2006-10-25 Completed [facility] of 00:00:00 [facility] DTAP 2006-10-25 Completed [facility] 00:00:00 [facility] Hepatitis A Adult 2006-10-25 Completed [facility] 00:00:00 [facility] Polio (IPV/OPV) 2006-10-25 Completed [facility] of 00:00:00 [facility] DTAP 2006-10-25 Completed [facility] 00:00:00 [facility] Hepatitis A Adult 2006-10-25 Completed [facility] 00:00:00 [facility] Polio (IPV/OPV) 2006-10-25 Completed [facility] 00:00:00 [facility] DTAP 2006-10-25 Completed [facility] 00:00:00 [facility] Hepatitis A Adult 2006-10-25 Completed [facility] 00:00:00 [facility] Polio (IPV/OPV) 2006-10-25 Completed [facility] 00:00:00 [facility] DTAP 2006-10-25 Completed [facility] 00:00:00 [facility] Hepatitis A Adult 2006-10-25 Completed [facility] 00:00:00 [facility] Polio (IPV/OPV) 2006-10-25 Completed [facility] of 00:00:00 [facility] DTAP 2006-10-25 Completed [facility] 00:00:00 [facility] Hepatitis A Adult 2006-10-25 Completed [facility] 00:00:00 [facility] Polio (IPV/OPV) 2006-10-25 Completed [facility] of 00:00:00 [facility] DTAP 2006-10-25 Completed [facility] 00:00:00 [facility] Hepatitis A Adult 2006-10-25 Completed [facility] 00:00:00 [facility] Polio (IPV/OPV) 2006-10-25 Completed [facility] 00:00:00 [facility] DTAP 2006-10-25 Completed [facility] 00:00:00 [facility] Hepatitis A Adult 2006-10-25 Completed [facility] 00:00:00 [facility] Polio (IPV/OPV) 2006-10-25 Completed [facility] 00:00:00 [facility] DTAP 2006-10-25 Completed [facility] 00:00:00 [facility] Hepatitis A Adult 2006-10-25 Completed [facility] 00:00:00 [facility] Polio (IPV/OPV) 2006-10-25 Completed [facility] 00:00:00 [facility] DTAP 2006-10-25 Completed University [...] (IPV/OPV) 2006-10-25 Completed [facility] 00:00:00 [facility] DTAP 2006-10-25 Completed [facility] 00:00:00 [facility] Hepatitis A Adult 2006-10-25 Completed [facility] 00:00:00 [facility] Polio (IPV/OPV) 2006-10-25 Completed [facility] of 00:00:00 [facility] DTAP 2006-10-25 Completed [facility] 00:00:00 [facility] Hepatitis A Adult 2006-10-25 Completed [facility] 00:00:00 [facility] Polio (IPV/OPV) 2006-10-25 Completed [facility] of 00:00:00 [facility] DTAP 2006-10-25 Completed [facility] 00:00:00 [facility] Hepatitis A Adult 2006-10-25 Completed [facility] 00:00:00 [facility] Polio (IPV/OPV) 2006-10-25 Completed [facility] 00:00:00 [facility] DTAP 2006-10-25 Completed [facility] 00:00:00 [facility] Hepatitis A Adult 2006-10-25 Completed [facility] 00:00:00 [facility] Polio (IPV/OPV) 2006-10-25 Completed [facility] of 00:00:00 [facility] DTAP 2006-10-25 Completed [facility] 00:00:00 [facility] Hepatitis A Adult 2006-10-25 Completed [facility] 00:00:00 [facility] Polio (IPV/OPV) 2006-10-25 Completed [facility] 00:00:00 [facility] DTAP 2006-10-25 Completed [facility] 00:00:00 [facility] Hepatitis A Adult 2006-10-25 Completed [facility] 00:00:00 [facility] Polio (IPV/OPV) 2006-10-25 Completed [facility] 00:00:00 [facility] DTAP 2006-10-25 Completed [facility] 00:00:00 [facility] Hepatitis A Adult 2006-10-25 Completed [facility] 00:00:00 [facility] Polio (IPV/OPV) 2006-10-25 Completed [facility] 00:00:00 [facility] DTAP 2006-10-25 Completed [facility] 00:00:00 [facility] Hepatitis A Adult 2006-10-25 Completed [facility] 00:00:00 [facility] Polio (IPV/OPV) 2006-10-25 Completed [facility] 00:00:00 [facility] DTAP 2006-10-25 Completed [facility] 00:00:00 [facility] Hepatitis A Adult 2006-10-25 Completed [facility] 00:00:00 [facility] Polio (IPV/OPV) 2006-10-25 Completed [facility] 00:00:00 [facility] DTAP 2006-10-25 Completed [facility] 00:00:00 [facility] Hepatitis A Adult 2006-10-25 Completed [facility] 00:00:00 [facility] Polio (IPV/OPV) 2006-10-25 Completed [facility] 00:00:00 [facility] DTAP 2006-10-25 Completed [facility] 00:00:00 [facility] Hepatitis A Adult 2006-10-25 Completed [facility] 00:00:00 [facility] Polio (IPV/OPV) 2006-10-25 Completed [facility] 00:00:00 [facility] DTAP 2006-10-25 Completed [facility] 00:00:00 [facility] Hepatitis A Adult 2006-10-25 Completed [facility] 00:00:00 [facility] Polio (IPV/OPV) 2006-10-25 Completed [facility] 00:00:00 [facility] DTAP 2006-10-25 Completed [facility] 00:00:00 [facility] Hepatitis A Adult 2006-10-25 Completed [facility] 00:00:00 [facility] Polio (IPV/OPV) 2006-10-25 Completed [facility] 00:00:00 [facility] DTAP 2006-10-25 Completed [facility] of 00:00:00 [facility] Hepatitis A Adult 2006-10-25 Completed [facility] 00:00:00 [facility] Polio (IPV/OPV) 2006-10-25 Completed [facility] 00:00:00 [facility] DTAP 2006-10-25 Completed [facility] 00:00:00 [facility] Hepatitis A Adult 2006-10-25 Completed [facility] 00:00:00 [facility] Polio (IPV/OPV) 2006-10-25 Completed [facility] 00:00:00 [facility] DTAP 2006-10-25 Completed [facility] 00:00:00 [facility] Hepatitis A Adult 2006-10-25 Completed [facility] 00:00:00 [facility] Polio (IPV/OPV) 2006-10-25 Completed [facility] 00:00:00 [facility] DTaP, Unspecified 2006-10-25 Completed Univers [facility]y of Formulation 00:00:00 [facility] HEPA,NOS 2006-10-25 Completed [facility] 00:00:00 [facility] IPV 2006-10-25 Completed [facility] of 00:00:00 [facility] DTAP 2006-10-25 Completed [facility] 00:00:00 [facility] Hepatitis A Adult 2006-10-25 Completed [facility] 00:00:00 [facility] Polio (IPV/OPV) 2006-10-25 Completed [facility] 00:00:00 [facility] DTaP, Unspecified 2006-10-25 Completed [facility] Formulation 00:00:00 [facility] HEPA,NOS 2006-10-25 Completed [facility] of 00:00:00 [facility] IPV 2006-10-25 Completed [facility] of 00:00:00 [facility] DTAP 2006-10-25 Completed [facility] 00:00:00 [facility] Hepatitis A Adult 2006-10-25 Completed [facility] 00:00:00 [facility] Polio (IPV/OPV) 2006-10-25 Completed [facility] 00:00:00 [facility] DTaP, Unspecified 2006-10-25 Completed [facility] Formulation 00:00:00 [facility] HEPA,NOS 2006-10-25 Completed [facility] of 00:00:00 [facility] IPV 2006-10-25 Completed [facility] of 00:00:00 [facility] DTAP 2006-10-25 Completed [facility] 00:00:00 [facility] Hepatitis A Adult 2006-10-25 Completed [facility] 00:00:00 [facility] Polio (IPV/OPV) 2006-10-25 Completed [facility] 00:00:00 [facility] DTaP, Unspecified 2006-10-25 Completed [facility] Formulation 00:00:00 [facility] HEPA,NOS 2006-10-25 Completed [facility] 00[facility]00:00 [facility] IPV 2006-10-25 Completed [facility] 00:00:00 [facility] DTAP 2006-10-25 Completed [facility] 00:00:00 [facility] Hepatitis A Adult 2006-10-25 Completed [facility] 00:00:00 [facility] Polio (IPV/OPV) 2006-10-25 Completed [facility] 00:00:00 [facility] DTaP, Unspecified 2006-10-25 Completed [facility] Formulation 00:00:00 [facility] HEPA,NOS 2006-10-25 Completed [facility] 00:00:00 [facility] IPV 2006-10-25 Completed [facility] 00:00:00 [facility] DTAP 2006-10-25 Completed [facility] 00:00:00 [facility] Hepatitis A Adult 2006-10-25 Completed [facility] 00:00:00 [facility] Polio (IPV/OPV) 2006-10-25 Completed [facility] 00:00:00 [facility] DTaP, Unspecified 2006-10-25 Completed [facility] Formulation 00:00:00 [facility] HEPA,NOS 2006-10-25 Completed [facility] 00:00:00 [facility] IPV 2006-10-25 Completed [facility] 00:00:00 [facility] DTAP 2006-10-25 Completed [facility] 00:00:00 [facility] Hepatitis A Adult 2006-10-25 Completed [facility] 00:00:00 [facility] Polio (IPV/OPV) 2006-10-25 Completed [facility] 00:00:00 [facility] DTaP, Unspecified 2006-10-25 Completed [facility] Formulation 00:00:00 [facility] HEPA,NOS 2006-10-25 Completed [facility] 00:00:00 [facility] IPV 2006-10-25 Completed [facility] 00:00:00 [facility] DTAP 2006-10-25 Completed [facility] 00:00:00 [facility] Hepatitis A Adult 2006-10-25 Completed [facility] 00:00:00 [facility] Polio (IPV/OPV) 2006-10-25 Completed [facility] 00:00:00 [facility] DTaP, Unspecified 2006-10-25 Completed [facility] Formulation 00:00:00 [facility] HEPA,NOS 2006-10-25 Completed [facility] 00:00:00 [facility] IPV 2006-10-25 Completed [facility] 00:00:00 [facility] DTAP 2006-10-25 Completed [facility] 00:00:00 [facility] Hepatitis A Adult 2006-10-25 Completed [facility] 00:00:00 [facility] Polio (IPV/OPV) 2006-10-25 Completed [facility] 00:00:00 [facility] DTaP, Unspecified 2006-10-25 Completed [facility] Formulation 00:00:00 [facility] HEPA,NOS 2006-10-25 Completed [facility] 00:00:00 [facility] IPV 2006-10-25 Completed [facility] 00:00:00 [facility] DTAP 2006-10-25 Completed [facility] 00:00:00 [facility] Hepatitis A Adult 2006-10-25 Completed [facility] 00:00:00 [facility] Polio (IPV/OPV) 2006-10-25 Completed [facility] 00:00:00 [facility] DTaP, Unspecified 2006-10-25 Completed [facility] Formulation 00:00:00 [facility] HEPA,NOS 2006-10-25 Completed [facility] 00:00:00 [facility] IPV 2006-10-25 Completed [facility] 00:00:00 [facility] DTAP 2006-10-25 Completed [facility] 00:00:00 [facility] Hepatitis A Adult 2006-10-25 Completed [facility] 00:00:00 [facility] Polio (IPV/OPV) 2006-10-25 Completed [facility] 00:00:00 [facility] DTaP, Unspecified 2006-10-25 Completed [facility] Formulation 00:00:00 [facility] HEPA,NOS 2006-10-25 Completed [facility] 00:00:00 [facility] IPV 2006-10-25 Completed [facility] 00:00:00 [facility] DTAP 2006-10-25 Completed [facility] 00:00:00 [facility] Hepatitis A Adult 2006-10-25 Completed [facility] 00:00:00 [facility] Polio (IPV/OPV) 2006-10-25 Completed [facility] 00:00:00 [facility] DTaP, Unspecified 2006-10-25 Completed [facility] Formulation 00:00:00 [facility] HEPA,NOS 2006-10-25 Completed [facility] 00:00:00 [facility] IPV 2006-10-25 Completed [facility] 00:00:00 [facility] DTAP 2006-10-25 Completed [facility] 00:00:00 [facility] Hepatitis A Adult 2006-10-25 Completed [facility] 00:00:00 [facility] Polio (IPV/OPV) 2006-10-25 Completed [facility] 00:00:00 [facility] DTaP, Unspecified 2006-10-25 Completed [facility] Formulation 00:00:00 [facility] HEPA,NOS 2006-10-25 Completed [facility] 00:00:00 [facility] IPV 2006-10-25 Completed [facility] 00:00:00 [facility] DTAP 2006-10-25 Completed [facility] 00:00:00 [facility] Hepatitis A Adult 2006-10-25 Completed [facility] 00:00:00 [facility] Polio (IPV/OPV) 2006-10-25 Completed [facility] 00:00:00 [facility] DTaP, Unspecified 2006-10-25 Completed [facility] Formulation 00:00:00 [facility] HEPA,NOS 2006-10-25 Completed [facility] 00:00:00 [facility] IPV 2006-10-25 Completed [facility] 00:00:00 [facility] DTAP 2006-10-25 Completed [facility] 00:00:00 [facility] Hepatitis A Adult 2006-10-25 Completed [facility] 00:00:00 [facility] Polio (IPV/OPV) 2006-10-25 Completed [facility] 00:00:00 [facility] DTaP, Unspecified 2006-10-25 Completed [facility] Formulation 00:00:00 [facility] HEPA,NOS 2006-10-25 Completed [facility] 00:00:00 [facility] IPV 2006-10-25 Completed [facility] 00:00:00 [facility] DTAP 2006-10-25 Completed [facility] 00:00:00 [facility] Hepatitis A Adult 2006-10-25 Completed [facility] 00:00:00 [facility] Polio (IPV/OPV) 2006-10-25 Completed [facility] 00:00:00 [facility] DTaP, Unspecified 2006-10-25 Completed [facility] Formulation 00:00:00 [facility] HEPA,NOS 2006-10-25 Completed [facility] 00:00:00 [facility] IPV 2006-10-25 Completed [facility] 00:00:00 [facility] DTAP 2006-10-25 Completed [facility] 00:00:00 [facility] Hepatitis A Adult 2006-10-25 Completed [facility] 00:00:00 [facility] Polio (IPV/OPV) 2006-10-25 Completed [facility] 00:00:00 [facility] DTaP, Unspecified 2006-10-25 Completed [facility] Formulation 00:00:00 [facility] HEPA,NOS 2006-10-25 Completed [facility] 00:00:00 [facility] IPV 2006-10-25 Completed [facility] 00:00:00 [facility] DTAP 2006-10-25 Completed [facility] 00:00:00 [facility] Hepatitis A Adult 2006-10-25 Completed [facility] 00:00:00 [facility] Polio (IPV/OPV) 2006-10-25 Completed [facility] 00:00:00 [facility] DTaP, Unspecified 2006-10-25 Completed [facility] Formulation 00:00:00 [facility] HEPA,NOS 2006-10-25 Completed [facility] 00:00:00 [facility] IPV 2006-10-25 Completed [facility] 00:00:00 [facility] DTAP 2006-10-25 Completed [facility] 00:00:00 [facility] Hepatitis A Adult 2006-10-25 Completed [facility] 00:00:00 [facility] Polio (IPV/OPV) 2006-10-25 Completed [facility] 00:00:00 [facility] DTaP, Unspecified 2006-10-25 Completed [facility] Formulation 00:00:00 [facility] HEPA,NOS 2006-10-25 Completed [facility] 00:00:00 [facility] IPV 2006-10-25 Completed [facility] 00:00:00 [facility] DTAP 2006-10-25 Completed [facility] 00:00:00 [facility] Hepatitis A Adult 2006-10-25 Completed [facility] 00:00:00 [facility] Polio (IPV/OPV) 2006-10-25 Completed [facility] 00:00:00 [facility] DTaP, Unspecified 2006-10-25 Completed [facility] Formulation 00:00:00 [facility] HEPA,NOS 2006-10-25 Completed [facility] 00:00:00 [facility] IPV 2006-10-25 Completed [facility] 00:00:00 [facility] DTAP 2006-10-25 Completed [facility] 00:00:00 [facility] Hepatitis A Adult 2006-10-25 Completed [facility] 00:00:00 [facility] Polio (IPV/OPV) 2006-10-25 Completed [facility] 00:00:00 [facility] DTaP, Unspecified 2006-10-25 Completed [facility] Formulation 00:00:00 [facility] HEPA,NOS 2006-10-25 Completed [facility] 00:00:00 [facility] IPV 2006-10-25 Completed [facility] 00:00:00 [facility] DTAP 2006-10-25 Completed [facility] 00:00:00 [facility] Hepatitis A Adult 2006-10-25 Completed [facility] 00:00:00 [facility] Polio (IPV/OPV) 2006-10-25 Completed [facility] 00:00:00 [facility] DTaP, Unspecified 2006-10-25 Completed [facility] Formulation 00:00:00 [facility] HEPA,NOS 2006-10-25 Completed [facility] 00:00:00 [facility] IPV 2006-10-25 Completed [facility] 00:00:00 [facility] DTAP 2006-10-25 Completed [facility] 00:00:00 [facility] Hepatitis A Adult 2006-10-25 Completed [facility] 00:00:00 [facility] Polio (IPV/OPV) 2006-10-25 Completed [facility] 00:00:00 [facility] DTaP, Unspecified 2006-10-25 Completed [facility] Formulation 00:00:00 [facility] HEPA,NOS 2006-10-25 Completed [facility] 00:00:00 [facility] IPV 2006-10-25 Completed [facility] 00:00:00 [facility] DTAP 2006-10-25 Completed [facility] 00:00:00 [facility] Hepatitis A Adult 2006-10-25 Completed [facility] 00:00:00 [facility] Polio (IPV/OPV) 2006-10-25 Completed [facility] 00:00:00 [facility] DTaP, Unspecified 2006-10-25 Completed [facility] Formulation 00:00:00 [facility] HEPA,NOS 2006-10-25 Completed [facility] 00:00:00 [facility] IPV 2006-10-25 Completed [facility] 00:00:00 [facility] DTAP 2006-10-25 Completed [facility] 00:00:00 [facility] Hepatitis A Adult 2006-10-25 Completed [facility] 00:00:00 [facility] Polio (IPV/OPV) 2006-10-25 Completed [facility] 00:00:00 [facility] DTaP, Unspecified 2006-10-25 Completed [facility] Formulation 00:00:00 [facility] HEPA,NOS 2006-10-25 Completed [facility] 00:00:00 [facility] IPV 2006-10-25 Completed [facility] 00:00:00 [facility] DTAP 2006-10-25 Completed [facility] 00:00:00 [facility] Hepatitis A Adult 2006-10-25 Completed [facility] 00:00:00 [facility] Polio (IPV/OPV) 2006-10-25 Completed [facility] 00:00:00 [facility] DTaP, Unspecified 2006-10-25 Completed [facility] Formulation 00:00:00 [facility] HEPA,NOS 2006-10-25 Completed [facility] 00:00:00 [facility] IPV 2006-10-25 Completed [facility] 00:00:00 [facility] DTAP 2005-09-20 Completed [facility] 00:00:00 [facility] HIB 3 Dose Schedule 2005-09-20 Completed Unive rsity of 00:00:00 [facility] Hepatitis A Adult 2005-09-20 Completed [facility] 00:00:00 [facility] Hep B, Adol or Pedi 2005-09-20 Completed Unive rsity of Dosage 00:00:00 [facility] Pneumococcal 13 2005-09-20 Completed [facility] of Conjugate, PCV13 00:00:00 [facility] dical (Prevnar 13) Branch Polio (IPV/OPV) 2005-09-20 Completed [facility] 00:00:00 [facility] DTAP 2005-09-20 Completed [facility] 00:00:00 [facility] HIB 3 Dose Schedule 2005-09-20 Completed Unive rsity of 00:00:00 [facility] Hepatitis A Adult 2005-09-20 Completed [facility] 00:00:00 [facility] Hep B, Adol or Pedi 2005-09-20 Completed Unive rsity of Dosage 00:00:00 [facility] Pneumococcal 13 2005-09-20 Completed [facility] of Conjugate, PCV13 00:00:00 [facility] dical (Prevnar 13) Branch Polio (IPV/OPV) 2005-09-20 Completed [facility] 00:00:00 [facility] DTAP 2005-09-20 Completed [facility] 00:00:00 [facility] HIB 3 Dose Schedule 2005-09-20 Completed Unive rsity of 00:00:00 [facility] Hepatitis A Adult 2005-09-20 Completed [facility] 00:00:00 [facility] Hep B, Adol or Pedi 2005-09-20 Completed Unive rsity of Dosage 00:00:00 [facility] Pneumococcal 13 2005-09-20 Completed [facility] of Conjugate, PCV13 00:00:00 [facility] dical (Prevnar 13) Branch Polio (IPV/OPV) 2005-09-20 Completed [facility] 00:00:00 [facility] DTAP 2005-09-20 Completed [facility] 00:00:00 [facility] HIB 3 Dose Schedule 2005-09-20 Completed Unive rsity of 00:00:00 [facility] Hepatitis A Adult 2005-09-20 Completed [facility] 00:00:00 [facility] Hep B, Adol or Pedi 2005-09-20 Completed Unive rsity of Dosage 00:00:00 [facility] Pneumococcal 13 2005-09-20 Completed [facility] of Conjugate, PCV13 00:00:00 [facility] dical (Prevnar 13) Branch Polio (IPV/OPV) 2005-09-20 Completed [facility] 00:00:00 [facility] DTAP 2005-09-20 Completed [facility] 00:00:00 [facility] HIB 3 Dose Schedule 2005-09-20 Completed Unive rsity of 00:00:00 [facility] Hepatitis A Adult 2005-09-20 Completed [facility] 00:00:00 [facility] Hep B, Adol or Pedi 2005-09-20 Completed Unive rsity of Dosage 00:00:00 [facility] Pneumococcal 13 2005-09-20 Completed [facility] of Conjugate, PCV13 00:00:00 [facility] dical (Prevnar 13) Branch Polio (IPV/OPV) 2005-09-20 Completed [facility] 00:00:00 [facility] DTAP 2005-09-20 Completed [facility] 00:00:00 [facility] HIB 3 Dose Schedule 2005-09-20 Completed Unive rsity of 00:00:00 [facility] Hepatitis A Adult 2005-09-20 Completed [facility] 00:00:00 [facility] Hep B, Adol or Pedi 2005-09-20 Completed Unive rsity of Dosage 00:00:00 [facility] Pneumococcal 13 2005-09-20 Completed [facility] of Conjugate, PCV13 00:00:00 [facility] dical (Prevnar 13) Branch Polio (IPV/OPV) 2005-09-20 Completed [facility] 00:00:00 [facility] DTAP 2005-09-20 Completed [facility] 00:00:00 [facility] HIB 3 Dose Schedule 2005-09-20 Completed Unive rsity of 00:00:00 [facility] Hepatitis A Adult 2005-09-20 Completed [facility] of 00:00:00 [facility] Hep B, Adol or Pedi 2005-09-20 Completed Unive rsity of Dosage 00:00:00 [facility] Pneumococcal 13 2005-09-20 Completed [facility] y of Conjugate, PCV13 00:00:00 [facility] dical (Prevnar 13) Branch Polio (IPV/OPV) 2005-09-20 Completed [facility] of 00:00:00 [facility] DTAP 2005-09-20 Completed [facility] 00:00:00 [facility] HIB 3 Dose Schedule 2005-09-20 Completed Unive rsity of 00:00:00 [facility] Hepatitis A Adult 2005-09-20 Completed [facility] of 00:00:00 [facility] Hep B, Adol or Pedi 2005-09-20 Completed Unive rsity of Dosage 00:00:00 [facility] Pneumococcal 13 2005-09-20 Completed [facility] y of Conjugate, PCV13 00:00:00 [facility] (Prevnar 13) Branch Polio (IPV/OPV) 2005-09-20 Completed [facility] of 00:00:00 [facility] DTAP 2005-09-20 Completed [facility] 00:00:00 [facility] HIB 3 Dose Schedule 2005-09-20 Completed Unive rsity of 00:00:00 [facility] Hepatitis A Adult 2005-09-20 Completed [facility] of 00:00:00 [facility] Hep B, Adol or Pedi 2005-09-20 Completed Unive rsity of Dosage 00:00:00 [facility] Pneumococcal 13 2005-09-20 Completed [facility] y of Conjugate, PCV13 00:00:00 [facility] dical (Prevnar 13) Branch Polio (IPV/OPV) 2005-09-20 Completed [facility] of 00:00:00 [facility] DTAP 2005-09-20 Completed [facility] 00:00:00 [facility] HIB 3 Dose Schedule 2005-09-20 Completed Unive rsity of 00:00:00 [facility] Hepatitis A Adult 2005-09-20 Completed [facility] of 00:00:00 [facility] Hep B, Adol or Pedi 2005-09-20 Completed Unive rsity of Dosage 00:00:00 [facility] Pneumococcal 13 2005-09-20 Completed [facility]it y of Conjugate, PCV13 00:00:00 [facility] dical (Prevnar 13) Branch Polio (IPV/OPV) 2005-09-20 Completed [facility] of 00:00:00 [facility] DTAP 2005-09-20 Completed [facility] 00:00:00 [facility] HIB 3 Dose Schedule 2005-09-20 Completed Unive rsity of 00:00:00 [facility] Hepatitis A Adult 2005-09-20 Completed [facility] of 00:00:00 [facility] Hep B, Adol or Pedi 2005-09-20 Completed Unive rsity of Dosage 00:00:00 [facility] Pneumococcal 13 2005-09-20 Completed [facility] of Conjugate, PCV13 00:00:00 [facility] dical (Prevnar 13) Branch Polio (IPV/OPV) 2005-09-20 Completed [facility] of 00:00:00 [facility] DTAP 2005-09-20 Completed [facility] 00:00:00 [facility] HIB 3 Dose Schedule 2005-09-20 Completed Unive rsity of 00:00:00 [facility] Hepatitis A Adult 2005-09-20 Completed [facility] of 00:00:00 [facility] Hep B, Adol or Pedi 2005-09-20 Completed Unive rsity of Dosage 00:00:00 [facility] Pneumococcal 13 2005-09-20 Completed [facility] of Conjugate, PCV13 00:00:00 [facility] dical (Prevnar 13) Branch Polio (IPV/OPV) 2005-09-20 Completed [facility] 00:00:00 [facility] DTAP 2005-09-20 Completed [facility] 00:00:00 [facility] HIB 3 Dose Schedule 2005-09-20 Completed Unive rsity of 00:00:00 [facility] Hepatitis A Adult 2005-09-20 Completed [facility] of 00:00:00 [facility] Hep B, Adol or Pedi 2005-09-20 Completed Unive rsity of Dosage 00:00:00 [facility] Pneumococcal 13 2005-09-20 Completed [facility] of Conjugate, PCV13 00:00:00 [facility] dical (Prevnar 13) Branch Polio (IPV/OPV) 2005-09-20 Completed [facility] 00:00:00 [facility] DTAP 2005-09-20 Completed [facility] 00:00:00 [facility] HIB 3 Dose Schedule 2005-09-20 Completed Unive rsity of 00:00:00 [facility] Hepatitis A Adult 2005-09-20 Completed [facility] of 00:00:00 [facility] Hep B, Adol or Pedi 2005-09-20 Completed Unive rsity of Dosage 00:00:00 [facility] Pneumococcal 13 2005-09-20 Completed [facility] of Conjugate, PCV13 00:00:00 [facility] dical (Prevnar 13) Branch Polio (IPV/OPV) 2005-09-20 Completed [facility] 00:00:00 [facility] DTAP 2005-09-20 Completed [facility] 00:00:00 [facility] HIB 3 Dose Schedule 2005-09-20 Completed Unive rsity of 00:00:00 [facility] Hepatitis A Adult 2005-09-20 Completed [facility] of 00:00:00 [facility] Hep B, Adol or Pedi 2005-09-20 Completed Unive rsity of Dosage 00:00:00 [facility] Pneumococcal 13 2005-09-20 Completed [facility]it y of Conjugate, PCV13 00:00:00 [facility] dical (Prevnar 13) Branch Polio (IPV/OPV) 2005-09-20 Completed [facility] 00:00:00 [facility] DTAP 2005-09-20 Completed [facility] of 00:00:00 [facility] HIB 3 Dose Schedule 2005-09-20 Completed Unive rsity of 00:00:00 [facility] Hepatitis A Adult 2005-09-20 Completed [facility] of 00:00:00 [facility] Hep B, Adol or Pedi 2005-09-20 Completed Unive rsity of Dosage 00:00:00 [facility] Pneumococcal 13 2005-09-20 Completed [facility] y of Conjugate, PCV13 00:00:00 [facility] dical (Prevnar 13) Branch Polio (IPV/OPV) 2005-09-20 Completed [facility] 00:00:00 [facility] DTAP 2005-09-20 Completed [facility] 00:00:00 [facility] HIB 3 Dose Schedule 2005-09-20 Completed Unive rsity of 00:00:00 [facility] Hepatitis A Adult 2005-09-20 Completed [facility] of 00:00:00 [facility] Hep B, Adol or Pedi 2005-09-20 Completed Unive rsity of Dosage 00:00:00 [facility] Pneumococcal 13 2005-09-20 Completed [facility]it y of Conjugate, PCV13 00:00:00 [facility] dical (Prevnar 13) Branch Polio (IPV/OPV) 2005-09-20 Completed [facility] 00:00:00 [facility] DTAP 2005-09-20 Completed [facility] 00:00:00 [facility] HIB 3 Dose Schedule 2005-09-20 Completed [facility]ive rsity of 00:00:00 [facility] Hepatitis A Adult 2005-09-20 Completed [facility] of 00:00:00 [facility] Hep B, Adol or Pedi 2005-09-20 Completed Unive rsity of Dosage 00:00:00 [facility] Pneumococcal 13 2005-09-20 Completed [facility] of Conjugate, PCV13 00:00:00 [facility] dical (Prevnar 13) Branch Polio (IPV/OPV) 2005-09-20 Completed [facility] 00:00:00 [facility] DTAP 2005-09-20 Completed [facility] 00:00:00 [facility] HIB 3 Dose Schedule 2005-09-20 Completed [facility]ive rsity of 00:00:00 [facility] Hepatitis A Adult 2005-09-20 Completed [facility] of 00:00:00 [facility] Hep B, Adol or Pedi 2005-09-20 Completed [facility] rsity of Dosage 00:00:00 [facility] Pneumococcal 13 2005-09-20 Completed [facility] of Conjugate, PCV13 00:00:00 [facility] dical (Prevnar 13) Branch Polio (IPV/OPV) 2005-09-20 Completed [facility] 00:00:00 [facility] DTAP 2005-09-20 Completed [facility] 00:00:00 [facility] HIB 3 Dose Schedule 2005-09-20 Completed [facility] rsity of 00:00:00 [facility] Hepatitis A Adult 2005-09-20 Completed [facility] 00:00:00 [facility] Hep B, Adol or Pedi 2005-09-20 Completed [facility] rs[facility] of Dosage 00:00:00 [facility] Pneumococcal 13 2005-09-20 Completed [facility] of Conjugate, PCV13 00:00:00 [facility] dical (Prevnar 13) Branch Polio (IPV/OPV) 2005-09-20 Completed [facility] 00:00:00 [facility] DTAP 2005-09-20 Completed [facility] 00:00:00 [facility] HIB 3 Dose Schedule 2005-09-20 Completed [facility]ive rsity of 00:00:00 [facility] Hepatitis A Adult 2005-09-20 Completed [facility] 00:00:00 [facility] Hep B, Adol or Pedi 2005-09-20 Completed [facility]ive [facility] of Dosage 00:00:00 [facility] Pneumococcal 13 2005-09-20 Completed [facility] Conjugate, PCV13 00:00:00 [facility] dical (Prevnar 13) Branch Polio (IPV/OPV) 2005-09-20 Completed [facility] 00:00:00 [facility] DTAP 2005-09-20 Completed [facility] 00:00:00 [facility] HIB 3 Dose Schedule 2005-09-20 Completed [facility] rs[facility] of 00:00:00 [facility] Hepatitis A Adult 2005-09-20 Completed [facility] 00:00:00 [facility] Hep B, Adol or Pedi 2005-09-20 Completed [facility] of Dosage 00:00:00 [facility] Pneumococcal 13 2005-09-20 Completed [facility] Conjugate, PCV13 00:00:00 [facility] dical (Prevnar 13) Branch Polio (IPV/OPV) 2005-09-20 Completed [facility] 00:00:00 [facility] DTAP 2005-09-20 Completed [facility] 00:00:00 [facility] HIB 3 Dose Schedule 2005-09-20 Completed [facility] of 00:00:00 [facility] Hepatitis A Adult 2005-09-20 Completed [facility] 00:00:00 [facility] Hep B, Adol or Pedi 2005-09-20 Completed [facility] of Dosage 00:00:00 [facility] Pneumococcal 13 2005-09-20 Completed [facility] Conjugate, PCV13 00:00:00 [facility] dical (Prevnar 13) Branch Polio (IPV/OPV) 2005-09-20 Completed [facility] 00:00:00 [facility] DTAP 2005-09-20 Completed [facility] 00:00:00 [facility] HIB 3 Dose Schedule 2005-09-20 Completed [facility] of 00:00:00 [facility] Hepatitis A Adult 2005-09-20 Completed [facility] 00:00:00 [facility] Hep B, Adol or Pedi 2005-09-20 Completed [facility] of Dosage 00:00:00 [facility] Pneumococcal 13 2005-09-20 Completed [facility] Conjugate, PCV13 00:00:00 [facility] dical (Prevnar 13) Branch Polio (IPV/OPV) 2005-09-20 Completed [facility] 00:00:00 [facility] DTAP 2005-09-20 Completed [facility] 00:00:00 [facility] HIB 3 Dose Schedule 2005-09-20 Completed [facility] of 00:00:00 [facility] Hepatitis A Adult 2005-09-20 Completed [facility] 00:00:00 [facility] Hep B, Adol or Pedi 2005-09-20 Completed [facility] of Dosage 00:00:00 [facility] Pneumococcal 13 2005-09-20 Completed [facility] Conjugate, PCV13 00:00:00 [facility] (Prevnar 13) Branch Polio (IPV/OPV) 2005-09-20 Completed [facility] 00:00:00 [facility] DTAP 2005-09-20 Completed [facility] 00:00:00 [facility] HIB 3 Dose Schedule 2005-09-20 Completed [facility] of 00:00:00 [facility] Hepatitis A Adult 2005-09-20 Completed [facility] 00:00:00 [facility] Hep B, Adol or Pedi 2005-09-20 Completed [facility] of Dosage 00:00:00 [facility] Pneumococcal 13 2005-09-20 Completed [facility] Conjugate, PCV13 00:00:00 [facility] dical (Prevnar 13) Branch Polio (IPV/OPV) 2005-09-20 Completed [facility] 00:00:00 [facility] DTAP 2005-09-20 Completed [facility] 00:00:00 [facility] HIB 3 Dose Schedule 2005-09-20 Completed [facility] of 00:00:00 [facility] Hepatitis A Adult 2005-09-20 Completed [facility] 00:00:00 [facility] Hep B, Adol or Pedi 2005-09-20 Completed [facility] of Dosage 00:00:00 [facility] Pneumococcal 13 2005-09-20 Completed [facility] Conjugate, PCV13 00:00:00 [facility] dical (Prevnar 13) Branch Polio (IPV/OPV) 2005-09-20 Completed [facility] 00:00:00 [facility] DTAP 2005-09-20 Completed [facility] of 00:00:00 [facility] HIB 3 Dose Schedule 2005-09-20 Completed [facility] of 00:00:00 [facility] Hepatitis A Adult 2005-09-20 Completed [facility] 00:00:00 [facility] Hep B, Adol or Pedi 2005-09-20 Completed [facility] of Dosage 00:00:00 [facility] Pneumococcal 13 2005-09-20 Completed [facility] Conjugate, PCV13 00:00:00 [facility] dical (Prevnar 13) Branch Polio (IPV/OPV) 2005-09-20 Completed [facility] 00:00:00 [facility] DTAP 2005-09-20 Completed [facility] 00:00:00 [facility] HIB 3 Dose Schedule 2005-09-20 Completed [facility] of 00:00:00 [facility] Hepatitis A Adult 2005-09-20 Completed [facility] 00:00:00 [facility] Hep B, Adol or Pedi 2005-09-20 Completed [facility] of Dosage 00:00:00 [facility] Pneumococcal 13 2005-09-20 Completed [facility] Conjugate, PCV13 00:00:00 [facility] dical (Prevnar 13) Branch Polio (IPV/OPV) 2005-09-20 Completed [facility] 00:00:00 [facility] DTAP 2005-09-20 Completed [facility] 00:00:00 [facility] HIB 3 Dose Schedule 2005-09-20 Completed [facility] of 00:00:00 [facility] Hepatitis A Adult 2005-09-20 Completed [facility] 00:00:00 [facility] Hep B, Adol or Pedi 2005-09-20 Completed [facility] of Dosage 00:00:00 [facility] Pneumococcal 13 2005-09-20 Completed [facility] Conjugate, PCV13 00:00:00 [facility] dical (Prevnar 13) Branch Polio (IPV/OPV) 2005-09-20 Completed [facility] 00:00:00 [facility] DTAP 2005-09-20 Completed [facility] 00:00:00 [facility] HIB 3 Dose Schedule 2005-09-20 Completed [facility] of 00:00:00 [facility] Hepatitis A Adult 2005-09-20 Completed [facility] 00:00:00 [facility] Hep B, Adol or Pedi 2005-09-20 Completed [facility] of Dosage 00:00:00 [facility] Pneumococcal 13 2005-09-20 Completed [facility] Conjugate, PCV13 00:00:00 [facility] dical (Prevnar 13) Branch Polio (IPV/OPV) 2005-09-20 Completed [facility] 00:00:00 [facility] DTAP 2005-09-20 Completed [facility] of 00:00:00 [facility] HIB 3 Dose Schedule 2005-09-20 Completed [facility] rs[facility] of 00:00:00 [facility] Hepatitis A Adult 2005-09-20 Completed [facility] 00:00:00 [facility] Hep B, Adol or Pedi 2005-09-20 Completed [facility] of Dosage 00:00:00 [facility] Pneumococcal 13 2005-09-20 Completed [facility] Conjugate, PCV13 00:00:00 [facility] d[facility] (Prevnar 13) Branch Polio (IPV/OPV) 2005-09-20 Completed [facility] 00:00:00 [facility] DTAP 2005-09-20 Completed [facility] 00:00:00 [facility] HIB 3 Dose Schedule 2005-09-20 Completed [facility] of 00:00:00 [facility] Hepatitis A Adult 2005-09-20 Completed [facility] 00:00:00 [facility] Hep B, Adol or Pedi 2005-09-20 Completed [facility] of Dosage 00:00:00 [facility] Pneumococcal 13 2005-09-20 Completed [facility] Conjugate, PCV13 00:00:00 [facility] dical (Prevnar 13) Branch Polio (IPV/OPV) 2005-09-20 Completed [facility] 00:00:00 [facility] DTAP 2005-09-20 Completed [facility] 00:00:00 [facility] HIB 3 Dose Schedule 2005-09-20 Completed [facility] of 00:00:00 [facility] Hepatitis A Adult 2005-09-20 Completed [facility] 00:00:00 [facility] Hep B, Adol or Pedi 2005-09-20 Completed [facility] of Dosage 00:00:00 [facility] Pneumococcal 13 2005-09-20 Completed [facility] Conjugate, PCV13 00:00:00 [facility] dical (Prevnar 13) Branch Polio (IPV/OPV) 2005-09-20 Completed [facility] 00:00:00 [facility] DTAP 2005-09-20 Completed [facility] 00:00:00 [facility] HIB 3 Dose Schedule 2005-09-20 Completed [facility] of 00:00:00 [facility] Hepatitis A Adult 2005-09-20 Completed [facility] 00:00:00 [facility] Hep B, Adol or Pedi 2005-09-20 Completed [facility] of Dosage 00:00:00 [facility] Pneumococcal 13 2005-09-20 Completed [facility] Conjugate, PCV13 00:00:00 [facility] d[facility] (Prevnar 13) Branch Polio (IPV/OPV) 2005-09-20 Completed [facility] 00:00:00 [facility] DTAP 2005-09-20 Completed [facility] 00:00:00 [facility] HIB 3 Dose Schedule 2005-09-20 Completed [facility] of 00:00:00 [facility] Hepatitis A Adult 2005-09-20 Completed [facility] 00:00:00 [facility] Hep B, Adol or Pedi 2005-09-20 Completed [facility]ive rs[facility] of Dosage 00:00:00 [facility] Pneumococcal 13 2005-09-20 Completed [facility] of Conjugate, PCV13 00:00:00 [facility] dical (Prevnar 13) Branch Polio (IPV/OPV) 2005-09-20 Completed [facility] 00:00:00 [facility] DTAP 2005-09-20 Completed [facility] 00:00:00 [facility] HIB 3 Dose Schedule 2005-09-20 Completed [facility] of 00:00:00 [facility] Hepatitis A Adult 2005-09-20 Completed [facility] 00:00:00 [facility] Hep B, Adol or Pedi 2005-09-20 Completed [facility] of Dosage 00:00:00 [facility] Pneumococcal 13 2005-09-20 Completed [facility] Conjugate, PCV13 00:00:00 [facility] dical (Prevnar 13) Branch Polio (IPV/OPV) 2005-09-20 Completed [facility] 00:00:00 [facility] DTAP 2005-09-20 Completed [facility] 00:00:00 [facility] HIB 3 Dose Schedule 2005-09-20 Completed [facility] of 00:00:00 [facility] Hepatitis A Adult 2005-09-20 Completed [facility] 00:00:00 [facility] Hep B, Adol or Pedi 2005-09-20 Completed [facility] of Dosage 00:00:00 [facility] Pneumococcal 13 2005-09-20 Completed [facility] Conjugate, PCV13 00:00:00 [facility] d[facility] (Prevnar 13) Branch Polio (IPV/OPV) 2005-09-20 Completed [facility] 00:00:00 [facility] DTaP, Unspecified 2005-09-20 Completed [facility] of Formulation 00:00:00 [facility] HEPATITIS A 2005-09-20 Completed [facility] of 00:00:00 [facility] HIB 4 Dose Schedule 2005-09-20 Completed [facility]ive rs[facility] of 00:00:00 [facility] Pneumococcal 7 2005-09-20 Completed [facility] of Conjugate, PCV7 00:00:00 [place] [facility] (Prevnar7) Branch IPV 2005-09-20 Completed [facility] 00:00:00 [facility] DTAP 2005-09-20 Completed [facility] 00:00:00 [facility] HIB 3 Dose Schedule 2005-09-20 Completed [facility] of 00:00:00 [facility] Hepatitis A Adult 2005-09-20 Completed [facility] 00:00:00 [facility] Hep B, Adol or Pedi 2005-09-20 Completed [facility] of Dosage 00:00:00 [facility] Pneumococcal 13 2005-09-20 Completed [facility] of Conjugate, PCV13 00:00:00 [facility] dicoh (Prevnar 13) Branch Polio (IPV/OPV) 2005-09-20 Completed [facility] 00:00:00 [facility] DTaP, Unspecified 2005-09-20 Completed [facility]y of Formulation 00:00:00 [facility] HEPATITIS A 2005-09-20 Completed [facility] of 00:00:00 [facility] HIB 4 Dose Schedule 2005-09-20 Completed [facility]ive rsity of 00:00:00 [facility] Pneumococcal 7 2005-09-20 Completed [facility] of Conjugate, PCV7 00:00:00 [place] [facility] (Prevnar7) Branch IPV 2005-09-20 Completed [facility] 00:00:00 [facility] DTAP 2005-09-20 Completed [facility] 00:00:00 [facility] HIB 3 Dose Schedule 2005-09-20 Completed [facility] rsity of 00:00:00 [facility] Hepatitis A Adult 2005-09-20 Completed [facility] 00:00:00 [facility] Hep B, Adol or Pedi 2005-09-20 Completed [facility] rs[facility] of Dosage 00:00:00 [facility] Pneumococcal 13 2005-09-20 Completed [facility] of Conjugate, PCV13 00:00:00 [facility] dical (Prevnar 13) Branch Polio (IPV/OPV) 2005-09-20 Completed [facility] 00:00:00 [facility] DTaP, Unspecified 2005-09-20 Completed [facility] of Formulation 00:00:00 [facility] HEPATITIS A 2005-09-20 Completed [facility] of 00:00:00 [facility] HIB 4 Dose Schedule 2005-09-20 Completed [facility]ive rsity of 00:00:00 [facility] Pneumococcal 7 2005-09-20 Completed [facility] of Conjugate, PCV7 00:00:00 [place] [facility] (Prevnar7) Branch IPV 2005-09-20 Completed [facility] 00:00:00 [facility] DTAP 2005-09-20 Completed [facility] 00:00:00 [facility] HIB 3 Dose Schedule 2005-09-20 Completed [facility]ive rsity of 00:00:00 [facility] Hepatitis A Adult 2005-09-20 Completed [facility] 00:00:00 [facility] Hep B, Adol or Pedi 2005-09-20 Completed [facility]ive rsity of Dosage 00:00:00 [facility] Pneumococcal 13 2005-09-20 Completed [facility] Conjugate, PCV13 00:00:00 [facility] (Prevnar 13) Branch Polio (IPV/OPV) 2005-09-20 Completed [facility] 00:00:00 [facility] DTaP, Unspecified 2005-09-20 Completed [facility] of Formulation 00:00:00 [facility] HEPATITIS A 2005-09-20 Completed [facility] 00:00:00 [facility] HIB 4 Dose Schedule 2005-09-20 Completed [facility]ive rsity of 00:00:00 [facility] Pneumococcal 7 2005-09-20 Completed [facility] of Conjugate, PCV7 00:00:00 [place] [facility] (Prevnar7) Branch IPV 2005-09-20 Completed [facility] 00:00:00 [facility] DTAP 2005-09-20 Completed [facility] 00:00:00 [facility] HIB 3 Dose Schedule 2005-09-20 Completed [facility] rsity of 00:00:00 [facility] Hepatitis A Adult 2005-09-20 Completed [facility] 00:00:00 [facility] Hep B, Adol or Pedi 2005-09-20 Completed [facility] rsity of Dosage 00:00:00 [facility] Pneumococcal 13 2005-09-20 Completed [facility] of Conjugate, PCV13 00:00:00 [facility] d[facility] (Prevnar 13) Branch Polio (IPV/OPV) 2005-09-20 Completed [facility] 00:00:00 [facility] DTaP, Unspecified 2005-09-20 Completed [facility] of Formulation 00:00:00 [facility] HEPATITIS A 2005-09-20 Completed [facility] 00:00:00 [facility] HIB 4 Dose Schedule 2005-09-20 Completed [facility] rsity of 00:00:00 [facility] Pneumococcal 7 2005-09-20 Completed [facility] of Conjugate, PCV7 00:00:00 [place] [facility] (Prevnar7) Branch IPV 2005-09-20 Completed [facility] 00:00:00 [facility] DTAP 2005-09-20 Completed [facility] 00:00:00 [facility] HIB 3 Dose Schedule 2005-09-20 Completed [facility] rs[facility] of 00:00:00 [facility] Hepatitis A Adult 2005-09-20 Completed [facility] 00:00:00 [facility] Hep B, Adol or Pedi 2005-09-20 Completed [facility] rs[facility] of Dosage 00:00:00 [facility] Pneumococcal 13 2005-09-20 Completed [facility] of Conjugate, PCV13 00:00:00 [facility] dicoh (Prevnar 13) Branch Polio (IPV/OPV) 2005-09-20 Completed [facility] 00:00:00 [facility] DTaP, Unspecified 2005-09-20 Completed [facility] of Formulation 00:00:00 [facility] HEPATITIS A 2005-09-20 Completed [facility] 00:00:00 [facility] HIB 4 Dose Schedule 2005-09-20 Completed [facility] rsity of 00:00:00 [facility] Pneumococcal 7 2005-09-20 Completed [facility] of Conjugate, PCV7 00:00:00 [place] [facility] (Prevnar7) Branch IPV 2005-09-20 Completed [facility] 00:00:00 [facility] DTAP 2005-09-20 Completed [facility] 00:00:00 [facility] HIB 3 Dose Schedule 2005-09-20 Completed [facility] rsity of 00:00:00 [facility] Hepatitis A Adult 2005-09-20 Completed [facility] 00:00:00 [facility] Hep B, Adol or Pedi 2005-09-20 Completed [facility] rsity of Dosage 00:00:00 [facility] Pneumococcal 13 2005-09-20 Completed [facility] Conjugate, PCV13 00:00:00 [facility] (Prevnar 13) Branch Polio (IPV/OPV) 2005-09-20 Completed [facility] 00:00:00 [facility] DTaP, Unspecified 2005-09-20 Completed [facility] Formulation 00:00:00 [facility] HEPATITIS A 2005-09-20 Completed [facility] 00:00:00 [facility] HIB 4 Dose Schedule 2005-09-20 Completed [facility]ive rsity of 00:00:00 [facility] Pneumococcal 7 2005-09-20 Completed [facility] of Conjugate, PCV7 00:00:00 [place] [facility] (Prevnar7) Branch IPV 2005-09-20 Completed [facility] 00:00:00 [facility] DTAP 2005-09-20 Completed [facility] 00:00:00 [facility] HIB 3 Dose Schedule 2005-09-20 Completed [facility] rsity of 00:00:00 [facility] Hepatitis A Adult 2005-09-20 Completed [facility] 00:00:00 [facility] Hep B, Adol or Pedi 2005-09-20 Completed [facility] rs[facility] of Dosage 00:00:00 [facility] Pneumococcal 13 2005-09-20 Completed [facility] Conjugate, PCV13 00:00:00 [facility] (Prevnar 13) [place] Polio (IPV/OPV) 2005-09-20 Completed [facility] 00:00:00 [facility] DTaP, Unspecified 2005-09-20 Completed [facility] Formulation 00:00:00 [facility] HEPATITIS A 2005-09-20 Completed [facility] 00:00:00 [facility] HIB 4 Dose Schedule 2005-09-20 Completed [facility] of 00:00:00 [facility] Pneumococcal 7 2005-09-20 Completed [facility] Conjugate, PCV7 00:00:00 [place] [facility] (Prevnar7) Branch IPV 2005-09-20 Completed [facility] 00:00:00 [facility] DTAP 2005-09-20 Completed [facility] 00:00:00 [facility] HIB 3 Dose Schedule 2005-09-20 Completed [facility] of 00:00:00 [facility] Hepatitis A Adult 2005-09-20 Completed [facility] 00:00:00 [facility] Hep B, Adol or Pedi 2005-09-20 Completed [facility] rsity of Dosage 00:00:00 [facility] Pneumococcal 13 2005-09-20 Completed [facility] of Conjugate, PCV13 00:00:00 [facility] d[facility] (Prevnar 13) [place] Polio (IPV/OPV) 2005-09-20 Completed [facility] 00:00:00 [facility] DTaP, Unspecified 2005-09-20 Completed [facility] Formulation 00:00:00 [facility] HEPATITIS A 2005-09-20 Completed [facility] 00:00:00 [facility] HIB 4 Dose Schedule 2005-09-20 Completed [facility] rsity of 00:00:00 [facility] Pneumococcal 7 2005-09-20 Completed [facility] of Conjugate, PCV7 00:00:00 [place] [facility] (Prevnar7) Branch IPV 2005-09-20 Completed [facility] 00:00:00 [facility] DTAP 2005-09-20 Completed [facility] 00:00:00 [facility] HIB 3 Dose Schedule 2005-09-20 Completed [facility] of 00:00:00 [facility] Hepatitis A Adult 2005-09-20 Completed [facility] 00:00:00 [facility] Hep B, Adol or Pedi 2005-09-20 Completed [facility] rsity of Dosage 00:00:00 [facility] Pneumococcal 13 2005-09-20 Completed [facility] of Conjugate, PCV13 00:00:00 [facility] (Prevnar 13) [place] Polio (IPV/OPV) 2005-09-20 Completed [facility] 00:00:00 [facility] DTaP, Unspecified 2005-09-20 Completed [facility] Formulation 00:00:00 [facility] HEPATITIS A 2005-09-20 Completed [facility] 00:00:00 [facility] HIB 4 Dose Schedule 2005-09-20 Completed [facility] rsity of 00:00:00 [facility] Pneumococcal 7 2005-09-20 Completed [facility] of Conjugate, PCV7 00:00:00 [place] [facility] (Prevnar7) Branch IPV 2005-09-20 Completed [facility] 00:00:00 [facility] DTAP 2005-09-20 Completed [facility] 00:00:00 [facility] HIB 3 Dose Schedule 2005-09-20 Completed [facility] of 00:00:00 [facility] Hepatitis A Adult 2005-09-20 Completed [facility] 00:00:00 [facility] Hep B, Adol or Pedi 2005-09-20 Completed [facility] of Dosage 00:00:00 [facility] Pneumococcal 13 2005-09-20 Completed [facility] of Conjugate, PCV13 00:00:00 [facility] d[facility] (Prevnar 13) Branch Polio (IPV/OPV) 2005-09-20 Completed [facility] 00:00:00 [facility] DTaP, Unspecified 2005-09-20 Completed [facility] Formulation 00:00:00 [facility] HEPATITIS A 2005-09-20 Completed [facility] 00:00:00 [facility] HIB 4 Dose Schedule 2005-09-20 Completed [facility] of 00:00:00 [facility] Pneumococcal 7 2005-09-20 Completed [facility] of Conjugate, PCV7 00:00:00 [place] [facility] (Prevnar7) Branch IPV 2005-09-20 Completed [facility] 00:00:00 [facility] DTAP 2005-09-20 Completed [facility] 00:00:00 [facility] HIB 3 Dose Schedule 2005-09-20 Completed [facility] of 00:00:00 [facility] Hepatitis A Adult 2005-09-20 Completed [facility] 00:00:00 [facility] Hep B, Adol or Pedi 2005-09-20 Completed [facility] of Dosage 00:00:00 [facility] Pneumococcal 13 2005-09-20 Completed [facility] Conjugate, PCV13 00:00:00 [facility] (Prevnar 13) Branch Polio (IPV/OPV) 2005-09-20 Completed [facility] 00:00:00 [facility] DTaP, Unspecified 2005-09-20 Completed [facility] Formulation 00:00:00 [facility] HEPATITIS A 2005-09-20 Completed [facility] 00:00:00 [facility] HIB 4 Dose Schedule 2005-09-20 Completed [facility] of 00:00:00 [facility] Pneumococcal 7 2005-09-20 Completed [facility] of Conjugate, PCV7 00:00:00 [place] [facility] (Prevnar7) Branch IPV 2005-09-20 Completed [facility] 00:00:00 [facility] DTAP 2005-09-20 Completed [facility] 00:00:00 [facility] HIB 3 Dose Schedule 2005-09-20 Completed [facility] of 00:00:00 [facility] Hepatitis A Adult 2005-09-20 Completed [facility] 00:00:00 [facility] Hep B, Adol or Pedi 2005-09-20 Completed [facility] of Dosage 00:00:00 [facility] Pneumococcal 13 2005-09-20 Completed [facility] Conjugate, PCV13 00:00:00 [facility] (Prevnar 13) Branch Polio (IPV/OPV) 2005-09-20 Completed [facility] 00:00:00 [facility] DTaP, Unspecified 2005-09-20 Completed [facility] Formulation 00:00:00 [facility] HEPATITIS A 2005-09-20 Completed [facility] of 00:00:00 [facility] HIB 4 Dose Schedule 2005-09-20 Completed [facility]ive rsity of 00:00:00 [facility] Pneumococcal 7 2005-09-20 Completed [facility] of Conjugate, PCV7 00:00:00 [facility] (Prevnar7) [facility] IPV 2005-09-20 Completed [facility] of 00:00:00 [facility] DTAP 2005-09-20 Completed [facility] of 00:00:00 [facility] HIB 3 Dose Schedule 2005-09-20 Completed [facility] of 00:00:00 [facility] Hepatitis A Adult 2005-09-20 Completed [facility] 00:00:00 [facility] Hep B, Adol or Pedi 2005-09-20 Completed [facility]ive rs[facility] of Dosage 00:00:00 [facility] Pneumococcal 13 2005-09-20 Completed [facility] Conjugate, PCV13 00:00:00 [facility] dical (Prevnar 13) Branch Polio (IPV/OPV) 2005-09-20 Completed [facility] 00:00:00 [facility] DTaP, Unspecified 2005-09-20 Completed [facility] Formulation 00:00:00 [facility] HEPATITIS A 2005-09-20 Completed [facility] of 00:00:00 [facility] HIB 4 Dose Schedule 2005-09-20 Completed [facility] rs[facility] of 00:00:00 [facility] Pneumococcal 7 2005-09-20 Completed [facility] of Conjugate, PCV7 00:00:00 [facility] [place] [facility] (Prevnar7) [facility] IPV 2005-09-20 Completed [facility] of 00:00:00 [facility] DTAP 2005-09-20 Completed [facility] of 00:00:00 [facility] HIB 3 Dose Schedule 2005-09-20 Completed [facility] of 00:00:00 [facility] Hepatitis A Adult 2005-09-20 Completed [facility] 00:00:00 [facility] Hep B, Adol or Pedi 2005-09-20 Completed [facility] rs[facility] of Dosage 00:00:00 [facility] Pneumococcal 13 2005-09-20 Completed [facility] of Conjugate, PCV13 00:00:00 [facility] dical (Prevnar 13) Branch Polio (IPV/OPV) 2005-09-20 Completed [facility] 00:00:00 [facility] DTaP, Unspecified 2005-09-20 Completed [facility] Formulation 00:00:00 [facility] HEPATITIS A 2005-09-20 Completed [facility] of 00:00:00 [facility] HIB 4 Dose Schedule 2005-09-20 Completed [facility] rs[facility] of 00:00:00 [facility] Pneumococcal 7 2005-09-20 Completed [facility] of Conjugate, PCV7 00:00:00 [facility] [place] [facility] (Prevnar7) [facility] IPV 2005-09-20 Completed [facility] of 00:00:00 [facility] DTAP 2005-09-20 Completed [facility] of 00:00:00 [facility] HIB 3 Dose Schedule 2005-09-20 Completed [facility] rs[facility] of 00:00:00 [facility] Hepatitis A Adult 2005-09-20 Completed [facility] 00:00:00 [facility] Hep B, Adol or Pedi 2005-09-20 Completed [facility] rs[facility] of Dosage 00:00:00 [facility] Pneumococcal 13 2005-09-20 Completed [facility] Conjugate, PCV13 00:00:00 [facility] dical (Prevnar 13) Branch Polio (IPV/OPV) 2005-09-20 Completed [facility] 00:00:00 [facility] DTaP, Unspecified 2005-09-20 Completed [facility] Formulation 00:00:00 [facility] HEPATITIS A 2005-09-20 Completed [facility] of 00:00:00 [facility] HIB 4 Dose Schedule 2005-09-20 Completed [facility] rs[facility] of 00:00:00 [facility] Pneumococcal 7 2005-09-20 Completed [facility] of Conjugate, PCV7 00:00:00 [facility] [place] [facility] (Prevnar7) [facility] IPV 2005-09-20 Completed [facility] of 00:00:00 [facility] DTAP 2005-09-20 Completed [facility] of 00:00:00 [facility] HIB 3 Dose Schedule 2005-09-20 Completed [facility] rs[facility] of 00:00:00 [facility] Hepatitis A Adult 2005-09-20 Completed [facility] 00:00:00 [facility] Hep B, Adol or Pedi 2005-09-20 Completed [facility]ive rs[facility] of Dosage 00:00:00 [facility] Pneumococcal 13 2005-09-20 Completed [facility] of Conjugate, PCV13 00:00:00 [facility] dical (Prevnar 13) Branch Polio (IPV/OPV) 2005-09-20 Completed [facility] 00:00:00 [facility] DTaP, Unspecified 2005-09-20 Completed [facility] Formulation 00:00:00 [facility] HEPATITIS A 2005-09-20 Completed [facility] of 00:00:00 [facility] HIB 4 Dose Schedule 2005-09-20 Completed [facility]ive rsity of 00:00:00 [facility] Pneumococcal 7 2005-09-20 Completed [facility] of Conjugate, PCV7 00:00:[address] [facility] ical (Prevnar7) Branch IPV 2005-09-20 Completed [facility] of 00:00:00 [facility] DTAP 2005-09-20 Completed [facility] of 00:00:00 [facility] HIB 3 Dose Schedule 2005-09-20 Completed [facility]ive rsity of 00:00:00 [facility] Hepatitis A Adult 2005-09-20 Completed [facility] of 00:00:00 [facility] Hep B, Adol or Pedi 2005-09-20 Completed [facility]ive rsity of Dosage 00:00:00 [facility] Pneumococcal 13 2005-09-20 Completed [facility] of Conjugate, PCV13 00:00:00 [facility] dical (Prevnar 13) Branch Polio (IPV/OPV) 2005-09-20 Completed [facility] 00:00:00 [facility] DTaP, Unspecified 2005-09-20 Completed [facility] of Formulation 00:00:00 [facility] HEPATITIS A 2005-09-20 Completed [facility] of 00:00:00 [facility] HIB 4 Dose Schedule 2005-09-20 Completed [facility] rs[facility] of 00:00:00 [facility] Pneumococcal 7 2005-09-20 Completed [facility] of Conjugate, PCV7 00:00:00 [facility] [place] [facility] (Prevnar7) Branch IPV 2005-09-20 Completed [facility] of 00:00:00 [facility] DTAP 2005-09-20 Completed [facility] of 00:00:00 [facility] HIB 3 Dose Schedule 2005-09-20 Completed [facility]ive rsity of 00:00:00 [facility] Hepatitis A Adult 2005-09-20 Completed [facility] 00:00:00 [facility] Hep B, Adol or Pedi 2005-09-20 Completed [facility]ive rsity of Dosage 00:00:00 [facility] Pneumococcal 13 2005-09-20 Completed [facility] of Conjugate, PCV13 00:00:00 [facility] dical (Prevnar 13) Branch Polio (IPV/OPV) 2005-09-20 Completed [facility] 00:00:00 [facility] DTaP, Unspecified 2005-09-20 Completed [facility] Formulation 00:00:00 [facility] HEPATITIS A 2005-09-20 Completed [facility] of 00:00:00 [facility] HIB 4 Dose Schedule 2005-09-20 Completed [facility]ive rsity of 00:00:00 [facility] Pneumococcal 7 2005-09-20 Completed [facility] of Conjugate, PCV7 00:00:[address] [facility] ical (Prevnar7) Branch IPV 2005-09-20 Completed [facility] of 00:00:00 [facility] DTAP 2005-09-20 Completed [facility] of 00:00:00 [facility] HIB 3 Dose Schedule 2005-09-20 Completed [facility] rsity of 00:00:00 [facility] Hepatitis A Adult 2005-09-20 Completed [facility] of 00:00:00 [facility] Hep B, Adol or Pedi 2005-09-20 Completed [facility]ive rsity of Dosage 00:00:00 [facility] Pneumococcal 13 2005-09-20 Completed [facility] of Conjugate, PCV13 00:00:00 [facility] dical (Prevnar 13) Branch Polio (IPV/OPV) 2005-09-20 Completed [facility] 00:00:00 [facility] DTaP, Unspecified 2005-09-20 Completed [facility] of Formulation 00:00:00 [facility] HEPATITIS A 2005-09-20 Completed [facility] of 00:00:00 [facility] HIB 4 Dose Schedule 2005-09-20 Completed [facility]ive rsity of 00:00:00 [facility] Pneumococcal 7 2005-09-20 Completed [facility] of Conjugate, PCV7 00:00:00 [facility] [place] [facility] (Prevnar7) Branch IPV 2005-09-20 Completed [facility] of 00:00:00 [facility] DTAP 2005-09-20 Completed [facility] of 00:00:00 [facility] HIB 3 Dose Schedule 2005-09-20 Completed [facility] rs[facility] of 00:00:00 [facility] Hepatitis A Adult 2005-09-20 Completed [facility] of 00:00:00 [facility] Hep B, Adol or Pedi 2005-09-20 Completed [facility]ive rsity of Dosage 00:00:00 [facility] Pneumococcal 13 2005-09-20 Completed [facility] of Conjugate, PCV13 00:00:00 [facility] dical (Prevnar 13) Branch Polio (IPV/OPV) 2005-09-20 Completed [facility] 00:00:00 [facility] DTaP, Unspecified 2005-09-20 Completed [facility] of Formulation 00:00:00 [facility] HEPATITIS A 2005-09-20 Completed [facility] of 00:00:00 [facility] HIB 4 Dose Schedule 2005-09-20 Completed [facility]ive rsity of 00:00:00 [facility] Pneumococcal 7 2005-09-20 Completed [facility] of Conjugate, PCV7 00:00:[address] [facility] ical (Prevnar7) Branch IPV 2005-09-20 Completed [facility] of 00:00:00 [facility] DTAP 2005-09-20 Completed [facility] of 00:00:00 [facility] HIB 3 Dose Schedule 2005-09-20 Completed [facility]ive rsity of 00:00:00 [facility] Hepatitis A Adult 2005-09-20 Completed [facility] of 00:00:00 [facility] Hep B, Adol or Pedi 2005-09-20 Completed [facility]ive rsity of Dosage 00:00:00 [facility] Pneumococcal 13 2005-09-20 Completed [facility] of Conjugate, PCV13 00:00:00 [facility] dical (Prevnar 13) Branch Polio (IPV/OPV) 2005-09-20 Completed [facility] 00:00:00 [facility] DTaP, Unspecified 2005-09-20 Completed [facility] of Formulation 00:00:00 [facility] HEPATITIS A 2005-09-20 Completed [facility] of 00:00:00 [facility] HIB 4 Dose Schedule 2005-09-20 Completed [facility] rsity of 00:00:00 [facility] Pneumococcal 7 2005-09-20 Completed [facility] of Conjugate, PCV7 00:00:00 [place] [facility] (Prevnar7) Branch IPV 2005-09-20 Completed [facility] of 00:00:00 [facility] DTAP 2005-09-20 Completed [facility] of 00:00:00 [facility] HIB 3 Dose Schedule 2005-09-20 Completed [facility] rsity of 00:00:00 [facility] Hepatitis A Adult 2005-09-20 Completed [facility] of 00:00:00 [facility] Hep B, Adol or Pedi 2005-09-20 Completed [facility]ive rsity of Dosage 00:00:00 [facility] Pneumococcal 13 2005-09-20 Completed [facility] of Conjugate, PCV13 00:00:00 [facility] dical (Prevnar 13) Branch Polio (IPV/OPV) 2005-09-20 Completed [facility] 00:00:00 [facility] DTaP, Unspecified 2005-09-20 Completed [facility] of Formulation 00:00:00 [facility] HEPATITIS A 2005-09-20 Completed [facility] of 00:00:00 [facility] HIB 4 Dose Schedule 2005-09-20 Completed [facility]ive rsity of 00:00:00 [facility] Pneumococcal 7 2005-09-20 Completed [facility] of Conjugate, PCV7 00:00:[address] [facility] ical (Prevnar7) Branch IPV 2005-09-20 Completed [facility] of 00:00:00 [facility] DTAP 2005-09-20 Completed [facility] of 00:00:00 [facility] HIB 3 Dose Schedule 2005-09-20 Completed [facility] rsity of 00:00:00 [facility] Hepatitis A Adult 2005-09-20 Completed [facility] of 00:00:00 [facility] Hep B, Adol or Pedi 2005-09-20 Completed [facility]ive rsity of Dosage 00:00:00 [facility] Pneumococcal 13 2005-09-20 Completed [facility] of Conjugate, PCV13 00:00:00 [facility] dical (Prevnar 13) Branch Polio (IPV/OPV) 2005-09-20 Completed [facility] 00:00:00 [facility] DTaP, Unspecified 2005-09-20 Completed [facility] of Formulation 00:00:00 [facility] HEPATITIS A 2005-09-20 Completed [facility] of 00:00:00 [facility] HIB 4 Dose Schedule 2005-09-20 Completed [facility]ive rsity of 00:00:00 [facility] Pneumococcal 7 2005-09-20 Completed [facility] of Conjugate, PCV7 00:00:00 [place] [facility] (Prevnar7) Branch IPV 2005-09-20 Completed [facility] of 00:00:00 [facility] DTAP 2005-09-20 Completed [facility] of 00:00:00 [facility] HIB 3 Dose Schedule 2005-09-20 Completed [facility] rsity of 00:00:00 [facility] Hepatitis A Adult 2005-09-20 Completed [facility] of 00:00:00 [facility] Hep B, Adol or Pedi 2005-09-20 Completed [facility]ive rsity of Dosage 00:00:00 [facility] Pneumococcal 13 2005-09-20 Completed [facility] of Conjugate, PCV13 00:00:00 [facility] dical (Prevnar 13) Branch Polio (IPV/OPV) 2005-09-20 Completed [facility] 00:00:00 [facility] DTaP, Unspecified 2005-09-20 Completed [facility] of Formulation 00:00:00 [facility] HEPATITIS A 2005-09-20 Completed [facility] of 00:00:00 [facility] HIB 4 Dose Schedule 2005-09-20 Completed [facility] rsity of 00:00:00 [facility] Pneumococcal 7 2005-09-20 Completed [facility] of Conjugate, PCV7 00:00:[address] [facility] ical (Prevnar7) Branch IPV 2005-09-20 Completed [facility] of 00:00:00 [facility] DTAP 2005-09-20 Completed [facility] of 00:00:00 [facility] HIB 3 Dose Schedule 2005-09-20 Completed [facility] rsity of 00:00:00 [facility] Hepatitis A Adult 2005-09-20 Completed [facility] of 00:00:00 [facility] Hep B, Adol or Pedi 2005-09-20 Completed [facility]ive rsity of Dosage 00:00:00 [facility] Pneumococcal 13 2005-09-20 Completed [facility] of Conjugate, PCV13 00:00:00 [facility] dical (Prevnar 13) Branch Polio (IPV/OPV) 2005-09-20 Completed [facility] 00:00:00 [facility] DTaP, Unspecified 2005-09-20 Completed [facility] of Formulation 00:00:00 [facility] HEPATITIS A 2005-09-20 Completed [facility] of 00:00:00 [facility] HIB 4 Dose Schedule 2005-09-20 Completed [facility]ive rsity of 00:00:00 [facility] Pneumococcal 7 2005-09-20 Completed [facility] of Conjugate, PCV7 00:00:[address] [facility] ical (Prevnar7) Branch IPV 2005-09-20 Completed [facility] of 00:00:00 [facility] DTAP 2004-07-22 Completed [facility] of 00:00:00 [facility] Hep B, Adol or Pedi 2004-07-22 Completed Unive rsity of Dosage 00:00:00 [facility] MMR 2004-07-22 Completed [facility] of 00:00:00 [facility] Polio (IPV/OPV) 2004-07-22 Completed [facility] 00:00:00 [facility] Varicella 2004-07-22 Completed University of (varivax)(chicken 00:00:00 [place] [facility] pox) Branch DTAP 2004-07-22 Completed [facility] of 00:00:00 [facility] Hep B, Adol or Pedi 2004-07-22 Completed Unive rsity of Dosage 00:00:00 [facility] MMR 2004-07-22 Completed [facility] of 00:00:00 [facility] Polio (IPV/OPV) 2004-07-22 Completed [facility] 00:00:00 [facility] Varicella 2004-07-22 Completed [facility] of (varivax)(chicken 00:00:00 [place] [facility] pox) Branch DTAP 2004-07-22 Completed [facility] of 00:00:00 [facility] Hep B, Adol or Pedi 2004-07-22 Completed [facility] rsity of Dosage 00:00:00 [facility] MMR 2004-07-22 Completed [facility] of 00:00:00 [facility] Polio (IPV/OPV) 2004-07-22 Completed [facility] 00:00:00 [facility] Varicella 2004-07-22 Completed [facility] of (varivax)(chicken 00:00:00 [place] [facility] pox) Branch DTAP 2004-07-22 Completed [facility] of 00:00:00 [facility] Hep B, Adol or Pedi 2004-07-22 Completed Unive rsity of Dosage 00:00:00 [facility] MMR 2004-07-22 Completed [facility] of 00:00:00 [facility] Polio (IPV/OPV) 2004-07-22 Completed [facility] 00:00:00 [facility] Varicella 2004-07-22 Completed [facility] of (varivax)(chicken 00:00:00 [place] [facility] pox) Branch DTAP 2004-07-22 Completed [facility] of 00:00:00 [facility] Hep B, Adol or Pedi 2004-07-22 Completed Unive rsity of Dosage 00:00:00 [facility] MMR 2004-07-22 Completed [facility] of 00:00:00 [facility] Polio (IPV/OPV) 2004-07-22 Completed [facility] 00:00:00 [facility] Varicella 2004-07-22 Completed [facility] (varivax)(chicken 00:00:00 [place] [facility] pox) Branch DTAP 2004-07-22 Completed [facility] of 00:00:00 [facility] Hep B, Adol or Pedi 2004-07-22 Completed [facility]ive rsity of Dosage 00:00:00 [facility] MMR 2004-07-22 Completed [facility] of 00:00:00 [facility] Polio (IPV/OPV) 2004-07-22 Completed [facility] 00:00:00 [facility] Varicella 2004-07-22 Completed [facility] of (varivax)(chicken 00:00:00 [facility] edical pox) Branch DTAP 2004-07-22 Completed [facility] of 00:00:00 [facility] Hep B, Adol or Pedi 2004-07-22 Completed Unive rsity of Dosage 00:00:00 [facility] MMR 2004-07-22 Completed [facility] of 00:00:00 [facility] Polio (IPV/OPV) 2004-07-22 Completed [facility] 00:00:00 [facility] Varicella 2004-07-22 Completed [facility] of (varivax)(chicken 00:00:00 [place] [facility] pox) Branch DTAP 2004-07-22 Completed [facility] of 00:00:00 [facility] Hep B, Adol or Pedi 2004-07-22 Completed Unive rsity of Dosage 00:00:00 [facility] MMR 2004-07-22 Completed [facility] of 00:00:00 [facility] Polio (IPV/OPV) 2004-07-22 Completed [facility] 00:00:00 [facility] Varicella 2004-07-22 Completed [facility] of (varivax)(chicken 00:00:00 [place] [facility] pox) Branch DTAP 2004-07-22 Completed [facility] of 00:00:00 [facility] Hep B, Adol or Pedi 2004-07-22 Completed Unive rsity of Dosage 00:00:00 [facility] MMR 2004-07-22 Completed [facility] of 00:00:00 [facility] Polio (IPV/OPV) 2004-07-22 Completed [facility] 00:00:00 [facility] Varicella 2004-07-22 Completed [facility] of (varivax)(chicken 00:00:00 [facility] edical pox) Branch DTAP 2004-07-22 Completed [facility] of 00:00:00 [facility] Hep B, Adol or Pedi 2004-07-22 Completed Unive rsity of Dosage 00:00:00 [facility] MMR 2004-07-22 Completed [facility] of 00:00:00 [facility] Polio (IPV/OPV) 2004-07-22 Completed [facility] 00:00:00 [facility] Varicella 2004-07-22 Completed [facility] of (varivax)(chicken 00:00:00 [facility] edical pox) Branch DTAP 2004-07-22 Completed [facility] of 00:00:00 [facility] Hep B, Adol or Pedi 2004-07-22 Completed Unive rsity of Dosage 00:00:00 [facility] MMR 2004-07-22 Completed [facility] of 00:00:00 [facility] Polio (IPV/OPV) 2004-07-22 Completed [facility] 00:00:00 [facility] Varicella 2004-07-22 Completed [facility] (varivax)(chicken 00:00:00 [place] [facility] pox) Branch DTAP 2004-07-22 Completed [facility] of 00:00:00 [facility] Hep B, Adol or Pedi 2004-07-22 Completed Unive rsity of Dosage 00:00:00 [facility] MMR 2004-07-22 Completed [facility] of 00:00:00 [facility] Polio (IPV/OPV) 2004-07-22 Completed [facility] 00:00:00 [facility] Varicella 2004-07-22 Completed [facility] of (varivax)(chicken 00:00:00 [facility] edical pox) Branch DTAP 2004-07-22 Completed [facility] of 00:00:00 [facility] Hep B, Adol or Pedi 2004-07-22 Completed Unive rsity of Dosage 00:00:00 [facility] MMR 2004-07-22 Completed [facility] of 00:00:00 [facility] Polio (IPV/OPV) 2004-07-22 Completed [facility] 00:00:00 [facility] Varicella 2004-07-22 Completed [facility] of (varivax)(chicken 00:00:00 [place] [facility] pox) Branch DTAP 2004-07-22 Completed [facility] of 00:00:00 [facility] Hep B, Adol or Pedi 2004-07-22 Completed Unive rsity of Dosage 00:00:00 [facility] MMR 2004-07-22 Completed [facility] of 00:00:00 [facility] Polio (IPV/OPV) 2004-07-22 Completed [facility] 00:00:00 [facility] Varicella 2004-07-22 Completed [facility] of (varivax)(chicken 00:00:00 [place] [facility] pox) Branch DTAP 2004-07-22 Completed [facility] of 00:00:00 [facility] Hep B, Adol or Pedi 2004-07-22 Completed Unive rsity of Dosage 00:00:00 [facility] MMR 2004-07-22 Completed [facility] of 00:00:00 [facility] Polio (IPV/OPV) 2004-07-22 Completed [facility] 00:00:00 [facility] Varicella 2004-07-22 Completed [facility] of (varivax)(chicken 00:00:00 [place] [facility] pox) Branch DTAP 2004-07-22 Completed [facility] of 00:00:00 [facility] Hep B, Adol or Pedi 2004-07-22 Completed [facility]ive rsity of Dosage 00:00:00 [facility] MMR 2004-07-22 Completed [facility] of 00:00:00 [facility] Polio (IPV/OPV) 2004-07-22 Completed [facility] 00:00:00 [facility] Varicella 2004-07-22 Completed [facility] of (varivax)(chicken 00:00:00 [place] [facility] pox) Branch DTAP 2004-07-22 Completed [facility] of 00:00:00 [facility] Hep B, Adol or Pedi 2004-07-22 Completed [facility]ive rsity of Dosage 00:00:00 [facility] MMR 2004-07-22 Completed [facility] of 00:00:00 [facility] Polio (IPV/OPV) 2004-07-22 Completed [facility] 00:00:00 [facility] Varicella 2004-07-22 Completed [facility] (varivax)(chicken 00:00:00 [place] [facility] pox) Branch DTAP 2004-07-22 Completed [facility] 00:00:00 [facility] Hep B, Adol or Pedi 2004-07-22 Completed Unive rsity of Dosage 00:00:00 [facility] MMR 2004-07-22 Completed [facility] of 00:00:00 [facility] Polio (IPV/OPV) 2004-07-22 Completed [facility] 00:00:00 [facility] Varicella 2004-07-22 Completed [facility] of (varivax)(chicken 00:00:00 [place] [facility] pox) Branch DTAP 2004-07-22 Completed [facility] of 00:00:00 [facility] Hep B, Adol or Pedi 2004-07-22 Completed [facility]ive rsity of Dosage 00:00:00 [facility] MMR 2004-07-22 Completed [facility] of 00:00:00 [facility] Polio (IPV/OPV) 2004-07-22 Completed [facility] 00:00:00 [facility] Varicella 2004-07-22 Completed [facility] of (varivax)(chicken 00:00:00 [place] [facility] pox) Branch DTAP 2004-07-22 Completed [facility] of 00:00:00 [facility] Hep B, Adol or Pedi 2004-07-22 Completed [facility]ive rsity of Dosage 00:00:00 [facility] MMR 2004-07-22 Completed [facility] 00:00:00 [facility] [facility] (IPV/OPV) 2004-07-22 Completed [facility] 00:00:00 [facility] Varicella 2004-07-22 Completed [facility] (varivax)(chicken 00:00:00 [place] [facility] DTAP 2004-07-22 Completed [facility] 00:00:00 [facility] Hep B, Adol or Pedi 2004-07-22 Completed [facility]ive rs[facility] of Dosage 00:00:00 [facility] MMR 2004-07-22 Completed [facility] 00:00:00 [facility] Polio (IPV/OPV) 2004-07-22 Completed [facility] 00:00:00 [facility] Varicella 2004-07-22 Completed [facility] (varivax)(chicken 00:00:00 [place] [facility] DTAP 2004-07-22 Completed [facility] 00:00:00 [facility] Hep B, Adol or Pedi 2004-07-22 Completed [facility] Dosage 00:00:00 [facility] MMR 2004-07-22 Completed [facility] 00:00:00 [facility] Polio (IPV/OPV) 2004-07-22 Completed [facility] 00:00:00 [facility] Varicella 2004-07-22 Completed [facility] (varivax)(chicken 00:00:00 [place] [facility] DTAP 2004-07-22 Completed [facility] 00:00:00 [facility] Hep B, Adol or Pedi 2004-07-22 Completed [facility] Dosage 00:00:00 [facility] MMR 2004-07-22 Completed [facility] 00:00:00 [facility] Polio (IPV/OPV) 2004-07-22 Completed [facility] 00:00:00 [facility] Varicella 2004-07-22 Completed [facility] (varivax)(chicken 00:00:00 [place] [facility] DTAP 2004-07-22 Completed [facility] 00:00:00 [facility] Hep B, Adol or Pedi 2004-07-22 Completed [facility] Dosage 00:00:00 [facility] MMR 2004-07-22 Completed [facility] 00:00:00 [facility] Polio (IPV/OPV) 2004-07-22 Completed [facility] 00:00:00 [facility] Varicella 2004-07-22 Completed [facility] (varivax)(chicken 00:00:00 [place] [facility] DTAP 2004-07-22 Completed [facility] 00:00:00 [facility] Hep B, Adol or Pedi 2004-07-22 Completed [facility] Dosage 00:00:00 [facility] MMR 2004-07-22 Completed [facility] 00:00:00 [facility] Polio (IPV/OPV) 2004-07-22 Completed [facility] 00:00:00 [facility] Varicella 2004-07-22 Completed [facility] (varivax)(chicken 00:00:00 [place] [facility] DTAP 2004-07-22 Completed [facility] 00:00:00 [facility] Hep B, Adol or Pedi 2004-07-22 Completed [facility] Dosage 00:00:00 [facility] MMR 2004-07-22 Completed [facility] 00:00:00 [facility] Polio (IPV/OPV) 2004-07-22 Completed [facility] 00:00:00 [facility] Varicella 2004-07-22 Completed [facility] (varivax)(chicken 00:00:00 [place] [facility]ox[facility] DTAP 2004-07-22 Completed [facility] 00:00:00 [facility] Hep B, Adol or Pedi 2004-07-22 Completed [facility] of Dosage 00:00:00 [facility] MMR 2004-07-22 Completed [facility] 00:00:00 [facility] Polio (IPV/OPV) 2004-07-22 Completed [facility] 00:00:00 [facility] Varicella 2004-07-22 Completed [facility] (varivax)(chicken 00:00:00 [place] [facility] pox[facility] DTAP 2004-07-22 Completed [facility] 00:00:00 [facility] Hep B, Adol or Pedi 2004-07-22 Completed [facility] of Dosage 00:00:00 [facility] MMR 2004-07-22 Completed [facility] 00:00:00 [facility] Polio (IPV/OPV) 2004-07-22 Completed [facility] 00:00:00 [facility] Varicella 2004-07-22 Completed [facility] (varivax)(chicken 00:00:00 [place] [facility] DTAP 2004-07-22 Completed [facility] 00:00:00 [facility] Hep B, Adol or Pedi 2004-07-22 Completed [facility] of Dosage 00:00:00 [facility] MMR 2004-07-22 Completed [facility] of 00:00:00 [facility] Polio (IPV/OPV) 2004-07-22 Completed [facility] 00:00:00 [facility] Varicella 2004-07-22 Completed [facility] (varivax)(chicken 00:00:00 [place] [facility] DTAP 2004-07-22 Completed [facility] 00:00:00 [facility] Hep B, Adol or Pedi 2004-07-22 Completed [facility] Dosage 00:00:00 [facility] MMR 2004-07-22 Completed [facility] 00:00:00 [facility] Polio (IPV/OPV) 2004-07-22 Completed [facility] 00:00:00 [facility] Varicella 2004-07-22 Completed [facility] (varivax)(chicken 00:00:00 [place] [facility] DTAP 2004-07-22 Completed [facility] 00:00:00 [facility] Hep B, Adol or Pedi 2004-07-22 Completed [facility] of Dosage 00:00:00 [facility] MMR 2004-07-22 Completed [facility] 00:00:00 [facility] Polio (IPV/OPV) 2004-07-22 Completed [facility] 00:00:00 [facility] Varicella 2004-07-22 Completed [facility] (varivax)(chicken 00:00:00 [place] [facility] DTAP 2004-07-22 Completed [facility] 00:00:00 [facility] Hep B, Adol or Pedi 2004-07-22 Completed [facility] of Dosage 00:00:00 [facility] MMR 2004-07-22 Completed [facility] 00:00:00 [facility] Polio (IPV/OPV) 2004-07-22 Completed [facility] 00:00:00 [facility] Varicella 2004-07-22 Completed [facility] (varivax)(chicken 00:00:00 [place] [facility] DTAP 2004-07-22 Completed [facility] 00:00:00 [facility] Hep B, Adol or Pedi 2004-07-22 Completed [facility] of Dosage 00:00:00 [facility] MMR 2004-07-22 Completed [facility] 00:00:00 [facility] Polio (IPV/OPV) 2004-07-22 Completed [facility] 00:00:00 [facility] Varicella 2004-07-22 Completed [facility] (varivax)(chicken 00:00:00 [place] [facility] DTAP 2004-07-22 Completed [facility] 00:00:00 [facility] Hep B, Adol or Pedi 2004-07-22 Completed [facility] of Dosage 00:00:00 [facility] MMR 2004-07-22 Completed [facility] 00:00:00 [facility] Polio (IPV/OPV) 2004-07-22 Completed [facility] 00:00:00 [facility] Varicella 2004-07-22 Completed [facility] (varivax)(chicken 00:00:00 [place] [facility] pox[facility] DTAP 2004-07-22 Completed [facility] 00:00:00 [facility] Hep B, Adol or Pedi 2004-07-22 Completed [facility] rs[facility] of Dosage 00:00:00 [facility] MMR 2004-07-22 Completed [facility] of 00:00:00 [facility] Polio (IPV/OPV) 2004-07-22 Completed [facility] 00:00:00 [facility] Varicella 2004-07-22 Completed [facility] (varivax)(chicken 00:00:00 [facility] edical pox) Branch DTAP 2004-07-22 Completed [facility] of 00:00:00 [facility] Hep B, Adol or Pedi 2004-07-22 Completed [facility] of Dosage 00:00:00 [facility] MMR 2004-07-22 Completed [facility] of 00:00:00 [facility] Polio (IPV/OPV) 2004-07-22 Completed [facility] 00:00:00 [facility] Varicella 2004-07-22 Completed [facility] (varivax)(chicken 00:00:00 [facility] edical pox) Branch DTAP 2004-07-22 Completed [facility] of 00:00:00 [facility] Hep B, Adol or Pedi 2004-07-22 Completed [facility] of Dosage 00:00:00 [facility] MMR 2004-07-22 Completed [facility] 00:00:00 [facility] Polio (IPV/OPV) 2004-07-22 Completed [facility] 00:00:00 [facility] Varicella 2004-07-22 Completed [facility] (varivax)(chicken 00:00:00 [facility] edical pox) Branch DTAP 2004-07-22 Completed [facility] 00:00:00 [facility] Hep B, Adol or Pedi 2004-07-22 Completed [facility] of Dosage 00:00:00 [facility] MMR 2004-07-22 Completed [facility] 00:00:00 [facility] Polio (IPV/OPV) 2004-07-22 Completed [facility] 00:00:00 [facility] Varicella 2004-07-22 Completed [facility] (varivax)(chicken 00:00:00 [facility] edical pox) Branch DTaP, Unspecified 2004-07-22 Completed Univers ity of Formulation 00:00:00 [facility] IPV 2004-07-22 Completed [facility] of 00:00:00 [facility] DTAP 2004-07-22 Completed [facility] of 00:00:00 [facility] Hep B, Adol or Pedi 2004-07-22 Completed [facility] rs[facility] of Dosage 00:00:00 [facility] MMR 2004-07-22 Completed [facility] 00:00:00 [facility] Polio (IPV/OPV) 2004-07-22 Completed [facility] 00:00:00 [facility] Varicella 2004-07-22 Completed [facility] (varivax)(chicken 00:00:00 [facility] edical pox) Branch DTaP, Unspecified 2004-07-22 Completed [facility] ity of Formulation 00:00:00 [facility] IPV 2004-07-22 Completed [facility] of 00:00:00 [facility] DTAP 2004-07-22 Completed [facility] of 00:00:00 [facility] Hep B, Adol or Pedi 2004-07-22 Completed [facility] rs[facility] of Dosage 00:00:00 [facility] MMR 2004-07-22 Completed [facility] of 00:00:00 [facility] Polio (IPV/OPV) 2004-07-22 Completed [facility] 00:00:00 [facility] Varicella 2004-07-22 Completed [facility] (varivax)(chicken 00:00:00 [facility] edical pox) Branch DTaP, Unspecified 2004-07-22 Completed [facility] it[facility] of Formulation 00:00:00 [facility] IPV 2004-07-22 Completed [facility] of 00:00:00 [facility] DTAP 2004-07-22 Completed [facility] 00:00:00 [facility] Hep B, Adol or Pedi 2004-07-22 Completed [facility] of Dosage 00:00:00 [facility] MMR 2004-07-22 Completed [facility] of 00:00:00 [facility] Polio (IPV/OPV) 2004-07-22 Completed [facility] 00:00:00 [facility] Varicella 2004-07-22 Completed [facility] (varivax)(chicken 00:00:00 [place] [facility] pox) [facility] DTaP, Unspecified 2004-07-22 Completed [facility] it[facility] of Formulation 00:00:00 [facility] IPV 2004-07-22 Completed [facility] of 00:00:00 [facility] DTAP 2004-07-22 Completed [facility] of 00:00:00 [facility] Hep B, Adol or Pedi 2004-07-22 Completed [facility] of Dosage 00:00:00 [facility] MMR 2004-07-22 Completed [facility] 00:00:00 [facility] Polio (IPV/OPV) 2004-07-22 Completed [facility] 00:00:00 [facility] Varicella 2004-07-22 Completed [facility] (varivax)(chicken 00:00:00 [facility] edical pox) Branch DTaP, Unspecified 2004-07-22 Completed [facility] it[facility] of Formulation 00:00:00 [facility] IPV 2004-07-22 Completed [facility] of 00:00:00 [facility] DTAP 2004-07-22 Completed [facility] of 00:00:00 [facility] Hep B, Adol or Pedi 2004-07-22 Completed [facility] of Dosage 00:00:00 [facility] MMR 2004-07-22 Completed [facility] 00:00:00 [facility] Polio (IPV/OPV) 2004-07-22 Completed [facility] 00:00:00 [facility] Varicella 2004-07-22 Completed [facility] (varivax)(chicken 00:00:00 [place] [facility] pox) [facility] DTaP, Unspecified 2004-07-22 Completed [facility] Formulation 00:00:00 [facility] IPV 2004-07-22 Completed [facility] 00:00:00 [facility] DTAP 2004-07-22 Completed [facility] of 00:00:00 [facility] Hep B, Adol or Pedi 2004-07-22 Completed [facility] rs[facility] of Dosage 00:00:00 [facility] MMR 2004-07-22 Completed [facility] of 00:00:00 [facility] Polio (IPV/OPV) 2004-07-22 Completed [facility] 00:00:00 [facility] Varicella 2004-07-22 Completed [facility] (varivax)(chicken 00:00:00 [place] [facility] pox) [facility] DTaP, Unspecified 2004-07-22 Completed [facility] of Formulation 00:00:00 [facility] IPV 2004-07-22 Completed [facility] of 00:00:00 [facility] DTAP 2004-07-22 Completed [facility] of 00:00:00 [facility] Hep B, Adol or Pedi 2004-07-22 Completed [facility] of Dosage 00:00:00 [facility] MMR 2004-07-22 Completed [facility] of 00:00:00 [facility] Polio (IPV/OPV) 2004-07-22 Completed [facility] 00:00:00 [facility] Varicella 2004-07-22 Completed [facility] (varivax)(chicken 00:00:00 [place] [facility] pox) [facility] DTaP, Unspecified 2004-07-22 Completed [facility] Formulation 00:00:00 [facility] IPV 2004-07-22 Completed [facility] of 00:00:00 [facility] DTAP 2004-07-22 Completed [facility] of 00:00:00 [facility] Hep B, Adol or Pedi 2004-07-22 Completed [facility] of Dosage 00:00:00 [facility] MMR 2004-07-22 Completed [facility] of 00:00:00 [facility] Polio (IPV/OPV) 2004-07-22 Completed [facility] 00:00:00 [facility] Varicella 2004-07-22 Completed [facility] (varivax)(chicken 00:00:00 [facility] edical pox) Branch DTaP, Unspecified 2004-07-22 Completed [facility] Formulation 00:00:00 [facility] IPV 2004-07-22 Completed [facility] of 00:00:00 [facility] DTAP 2004-07-22 Completed [facility] of 00:00:00 [facility] Hep B, Adol or Pedi 2004-07-22 Completed [facility] of Dosage 00:00:00 [facility] MMR 2004-07-22 Completed [facility] 00:00:00 [facility] Polio (IPV/OPV) 2004-07-22 Completed [facility] 00:00:00 [facility] Varicella 2004-07-22 Completed [facility] (varivax)(chicken 00:00:00 [place] [facility] pox) [facility] DTaP, Unspecified 2004-07-22 Completed [facility] Formulation 00:00:00 [facility] IPV 2004-07-22 Completed [facility] of 00:00:00 [facility] DTAP 2004-07-22 Completed [facility] 00:00:00 [facility] Hep B, Adol or Pedi 2004-07-22 Completed [facility] rsity of Dosage 00:00:00 [facility] MMR 2004-07-22 Completed [facility] of 00:00:00 [facility] Polio (IPV/OPV) 2004-07-22 Completed [facility] 00:00:00 [facility] Varicella 2004-07-22 Completed [facility] (varivax)(chicken 00:00:00 [place] [facility] pox) [facility] DTaP, Unspecified 2004-07-22 Completed [facility] of Formulation 00:00:00 [facility] IPV 2004-07-22 Completed [facility] of 00:00:00 [facility] DTAP 2004-07-22 Completed [facility] of 00:00:00 [facility] Hep B, Adol or Pedi 2004-07-22 Completed [facility] rs[facility] of Dosage 00:00:00 [facility] MMR 2004-07-22 Completed [facility] 00:00:00 [facility] Polio (IPV/OPV) 2004-07-22 Completed [facility] 00:00:00 [facility] Varicella 2004-07-22 Completed [facility] (varivax)(chicken 00:00:00 [place] [facility] pox) [facility] DTaP, Unspecified 2004-07-22 Completed [facility] Formulation 00:00:00 [facility] IPV 2004-07-22 Completed [facility] of 00:00:00 [facility] DTAP 2004-07-22 Completed [facility] of 00:00:00 [facility] Hep B, Adol or Pedi 2004-07-22 Completed [facility] rs[facility] of Dosage 00:00:00 [facility] MMR 2004-07-22 Completed [facility] of 00:00:00 [facility] Polio (IPV/OPV) 2004-07-22 Completed [facility] 00:00:00 [facility] Varicella 2004-07-22 Completed [facility] (varivax)(chicken 00:00:00 [place] [facility] pox) Branch DTaP, Unspecified 2004-07-22 Completed [facility] Formulation 00:00:00 [facility] IPV 2004-07-22 Completed [facility] 00:00:00 [facility] DTAP 2004-07-22 Completed [facility] 00:00:00 [place] [facility] Hep B, Adol or Pedi 2004-07-22 Completed [facility] rs[facility] of Dosage 00:00:00 [facility] MMR 2004-07-22 Completed [facility] of 00:00:00 [facility] Polio (IPV/OPV) 2004-07-22 Completed [facility] 00:00:00 [facility] Varicella 2004-07-22 Completed [facility] (varivax)(chicken 00:00:00 [place] [facility] pox) Branch DTaP, Unspecified 2004-07-22 Completed [facility] Formulation 00:00:00 [facility] IPV 2004-07-22 Completed [facility] 00:00:00 [facility] DTAP 2004-07-22 Completed [facility] 00:00:00 [facility] Hep B, Adol or Pedi 2004-07-22 Completed [facility] rs[facility] of Dosage 00:00:00 [facility] MMR 2004-07-22 Completed [facility] of 00:00:00 [facility] Polio (IPV/OPV) 2004-07-22 Completed [facility] 00:00:00 [facility] Varicella 2004-07-22 Completed [facility] (varivax)(chicken 00:00:00 [facility] edical pox) Branch DTaP, Unspecified 2004-07-22 Completed [facility] Formulation 00:00:00 [facility] IPV 2004-07-22 Completed [facility] of 00:00:00 [facility] DTAP 2004-07-22 Completed [facility] of 00:00:00 [facility] Hep B, Adol or Pedi 2004-07-22 Completed [facility] rs[facility] of Dosage 00:00:00 [facility] MMR 2004-07-22 Completed [facility] of 00:00:00 [facility] Polio (IPV/OPV) 2004-07-22 Completed [facility] 00:00:00 [facility] Varicella 2004-07-22 Completed [facility] (varivax)(chicken 00:00:00 [place] [facility]ox[facility] DTaP, Unspecified 2004-07-22 Completed [facility] Formulation 00:00:00 [facility] IPV 2004-07-22 Completed [facility] 00:00:00 [facility] DTAP 2004-07-22 Completed [facility] 00:00:00 [facility] Hep B, Adol or Pedi 2004-07-22 Completed [facility] rs[facility] of Dosage 00:00:00 [facility] MMR 2004-07-22 Completed [facility] 00:00:00 [facility] Polio (IPV/OPV) 2004-07-22 Completed [facility] 00:00:00 [facility] Varicella 2004-07-22 Completed [facility] (varivax)(chicken 00:00:00 [place] [facility] pox) [facility] DTaP, Unspecified 2004-07-22 Completed [facility] Formulation 00:00:00 [facility] IPV 2004-07-22 Completed [facility] 00:00:00 [facility] DTAP 2004-07-22 Completed [facility] 00:00:00 [facility] Hep B, Adol or Pedi 2004-07-22 Completed [facility] rs[facility] of Dosage 00:00:00 [facility] MMR 2004-07-22 Completed [facility] 00:00:00 [facility] Polio (IPV/OPV) 2004-07-22 Completed [facility] 00:00:00 [facility] Varicella 2004-07-22 Completed [facility] (varivax)(chicken 00:00:00 [facility] edical pox) Branch DTaP, Unspecified 2004-07-22 Completed [facility] Formulation 00:00:00 [facility] IPV 2004-07-22 Completed [facility] 00:00:00 [facility] DTAP 2004-07-22 Completed [facility] 00:00:00 [facility] Hep B, Adol or Pedi 2004-07-22 Completed [facility] rs[facility] of Dosage 00:00:00 [facility] MMR 2004-07-22 Completed [facility] 00:00:00 [facility] Polio (IPV/OPV) 2004-07-22 Completed [facility] 00:00:00 [facility] Varicella 2004-07-22 Completed [facility] (varivax)(chicken 00:00:00 [facility] edical pox) Branch DTaP, Unspecified 2004-07-22 Completed [facility] Formulation 00:00:00 [facility] IPV 2004-07-22 Completed [facility] 00:00:00 [facility] DTAP 2004-07-22 Completed [facility] 00:00:00 [facility] Hep B, Adol or Pedi 2004-07-22 Completed Un[facility] rs[facility] of Dosage 00:00:00 [facility] MMR 2004-07-22 Completed [facility] of 00:00:00 [facility] Polio (IPV/OPV) 2004-07-22 Completed [facility] 00:00:00 [facility] Varicella 2004-07-22 Completed [facility] (varivax)(chicken 00:00:00 [place] [facility] pox) [facility] DTaP, Unspecified 2004-07-22 Completed [facility] Formulation 00:00:00 [facility] IPV 2004-07-22 Completed [facility] 00:00:00 [facility] DTAP 2004-07-22 Completed [facility] 00:00:00 [facility] Hep B, Adol or Pedi 2004-07-22 Completed [facility] rs[facility] of Dosage 00:00:00 [facility] MMR 2004-07-22 Completed [facility] of 00:00:00 [facility] Polio (IPV/OPV) 2004-07-22 Completed [facility] 00:00:00 [facility] Varicella 2004-07-22 Completed [facility] (varivax)(chicken 00:00:00 [facility] edical pox) Branch DTaP, Unspecified 2004-07-22 Completed [facility] Formulation 00:00:00 [facility] IPV 2004-07-22 Completed [facility] 00:00:00 [facility] DTAP 2004-07-22 Completed [facility] 00:00:00 [facility] Hep B, Adol or Pedi 2004-07-22 Completed [facility] rs[facility] of Dosage 00:00:00 [facility] MMR 2004-07-22 Completed [facility] 00:00:00 [facility] Polio (IPV/OPV) 2004-07-22 Completed [facility] 00:00:00 [facility] Varicella 2004-07-22 Completed [facility] (varivax)(chicken 00:00:00 [facility] edical pox) Branch DTaP, Unspecified 2004-07-22 Completed [facility] Formulation 00:00:00 [facility] IPV 2004-07-22 Completed [facility] 00:00:00 [facility] DTAP 2004-07-22 Completed [facility] 00:00:00 [facility] Hep B, Adol or Pedi 2004-07-22 Completed [facility] rs[facility] of Dosage 00:00:00 [facility] MMR 2004-07-22 Completed [facility] 00:00:00 [facility] Polio (IPV/OPV) 2004-07-22 Completed [facility] 00:00:00 [facility] Varicella 2004-07-22 Completed [facility] (varivax)(chicken 00:00:00 [place] [facility] DTaP, Unspecified 2004-07-22 Completed [facility] Formulation 00:00:00 [facility] IPV 2004-07-22 Completed [facility] 00:00:00 [facility] DTAP 2004-07-22 Completed [facility] 00:00:00 [facility] Hep B, Adol or Pedi 2004-07-22 Completed [facility] rs[facility] of Dosage 00:00:00 [facility] MMR 2004-07-22 Completed [facility] 00:00:00 [facility] Polio (IPV/OPV) 2004-07-22 Completed [facility] 00:00:00 [facility] Varicella 2004-07-22 Completed [facility] (varivax)(chicken 00:00:00 [facility] edical pox) Branch DTaP, Unspecified 2004-07-22 Completed [facility] Formulation 00:00:00 [facility] IPV 2004-07-22 Completed [facility] 00:00:00 [facility] DTAP 2004-07-22 Completed [facility] 00:00:00 [facility] Hep B, Adol or Pedi 2004-07-22 Completed [facility] Dosage 00:00:00 [facility] MMR 2004-07-22 Completed [facility] 00:00:00 [facility] Polio (IPV/OPV) 2004-07-22 Completed [facility] 00:00:00 [facility] Varicella 2004-07-22 Completed [facility] (varivax)(chicken 00:00:00 [place] [facility] DTaP, Unspecified 2004-07-22 Completed [facility] Formulation 00:00:00 [facility] IPV 2004-07-22 Completed [facility] 00:00:00 [facility] DTAP 2004-07-22 Completed [facility] 00:00:00 [facility] Hep B, Adol or Pedi 2004-07-22 Completed [facility] Dosage 00:00:00 [facility] MMR 2004-07-22 Completed [facility] 00:00:00 [facility] Polio (IPV/OPV) 2004-07-22 Completed [facility] 00:00:00 [facility] Varicella 2004-07-22 Completed [facility] (varivax)(chicken 00:00:00 [place] [facility] pox) [facility] DTaP, Unspecified 2004-07-22 Completed [facility] Formulation 00:00:00 [facility] IPV 2004-07-22 Completed [facility] 00:00:00 [facility] DTAP 2003-06-04 Completed [facility] 00:00:00 [facility] HIB 3 Dose Schedule 2003-06-04 Completed [facility] 00:00:00 [facility] Hep B, Adol or Pedi 2003-06-04 Completed [facility] Dosage 00:00:00 [facility] MMR 2003-06-04 Completed [facility] 00:00:00 [facility] Polio (IPV/OPV) 2003-06-04 Completed [facility] 00:00:00 [facility] Varicella 2003-06-04 Completed [facility] (varivax)(chicken 00:00:00 [place] [facility]ox[facility] DTAP 2003-06-04 Completed [facility] 00:00:00 [facility] HIB 3 Dose Schedule 2003-06-04 Completed [facility] 00:00:00 [facility] Hep B, Adol or Pedi 2003-06-04 Completed [facility] Dosage 00:00:00 [facility] MMR 2003-06-04 Completed [facility] 00:00:00 [facility] Polio (IPV/OPV) 2003-06-04 Completed [facility] 00:00:00 [facility] Varicella 2003-06-04 Completed [facility] (varivax)(chicken 00:00:00 [place] [facility] pox[facility] DTAP 2003-06-04 Completed [facility] 00:00:00 [facility] HIB 3 Dose Schedule 2003-06-04 Completed [facility] 00:00:00 [facility] Hep B, Adol or Pedi 2003-06-04 Completed [facility] Dosage 00:00:00 [facility] MMR 2003-06-04 Completed [facility] 00:00:00 [facility] Polio (IPV/OPV) 2003-06-04 Completed [facility] 00:00:00 [facility] Varicella 2003-06-04 Completed [facility] (varivax)(chicken 00:00:00 [place] [facility]ox[facility] DTAP 2003-06-04 Completed [facility] 00:00:00 [facility] HIB 3 Dose Schedule 2003-06-04 Completed [facility] 00:00:00 [facility] Hep B, Adol or Pedi 2003-06-04 Completed [facility] Dosage 00:00:00 [facility] MMR 2003-06-04 Completed [facility] 00:00:00 [facility] Polio (IPV/OPV) 2003-06-04 Completed [facility] 00:00:00 [facility] Varicella 2003-06-04 Completed [facility] (varivax)(chicken 00:00:00 [place] [facility]ox[facility] DTAP 2003-06-04 Completed [facility] 00:00:00 [facility] HIB 3 Dose Schedule 2003-06-04 Completed [facility] 00:00:00 [facility] Hep B, Adol or Pedi 2003-06-04 Completed [facility] Dosage 00:00:00 [facility] MMR 2003-06-04 Completed [facility] 00:00:00 [facility] Polio (IPV/OPV) 2003-06-04 Completed [facility] 00:00:00 [facility] Varicella 2003-06-04 Completed [facility] (varivax)(chicken 00:00:00 [place] [facility]ox[facility] DTAP 2003-06-04 Completed [facility] 00:00:00 [facility] HIB 3 Dose Schedule 2003-06-04 Completed [facility] 00:00:00 [facility] Hep B, Adol or Pedi 2003-06-04 Completed [facility] Dosage 00:00:00 [facility] MMR 2003-06-04 Completed [facility] 00:00:00 [facility] Polio (IPV/OPV) 2003-06-04 Completed [facility] 00:00:00 [facility] Varicella 2003-06-04 Completed [facility] (varivax)(chicken 00:00:00 [place] [facility] pox[facility] DTAP 2003-06-04 Completed [facility] 00:00:00 [facility] HIB 3 Dose Schedule 2003-06-04 Completed [facility] 00:00:00 [facility] Hep B, Adol or Pedi 2003-06-04 Completed [facility] Dosage 00:00:00 [facility] MMR 2003-06-04 Completed [facility] 00:00:00 [facility] Polio (IPV/OPV) 2003-06-04 Completed [facility] 00:00:00 [facility] Varicella 2003-06-04 Completed [facility] (varivax)(chicken 00:00:00 [place] [facility] pox[facility] DTAP 2003-06-04 Completed [facility] 00:00:00 [facility] HIB 3 Dose Schedule 2003-06-04 Completed [facility] 00:00:00 [facility] Hep B, Adol or Pedi 2003-06-04 Completed [facility] Dosage 00:00:00 [facility] MMR 2003-06-04 Completed [facility] 00:00:00 [facility] Polio (IPV/OPV) 2003-06-04 Completed [facility] 00:00:00 [facility] Varicella 2003-06-04 Completed [facility] (varivax)(chicken 00:00:00 [place] [facility]ox[facility] DTAP 2003-06-04 Completed [facility] 00:00:00 [facility] HIB 3 Dose Schedule 2003-06-04 Completed [facility] 00:00:00 [facility] Hep B, Adol or Pedi 2003-06-04 Completed [facility] Dosage 00:00:00 [facility] MMR 2003-06-04 Completed [facility] 00:00:00 [facility] Polio (IPV/OPV) 2003-06-04 Completed [facility] 00:00:00 [facility] Varicella 2003-06-04 Completed [facility] (varivax)(chicken 00:00:00 [place] [facility] pox[facility] DTAP 2003-06-04 Completed [facility] 00:00:00 [facility] HIB 3 Dose Schedule 2003-06-04 Completed [facility] 00:00:00 [facility] Hep B, Adol or Pedi 2003-06-04 Completed [facility] Dosage 00:00:00 [facility] MMR 2003-06-04 Completed [facility] 00:00:00 [facility] Polio (IPV/OPV) 2003-06-04 Completed [facility] 00:00:00 [facility] Varicella 2003-06-04 Completed [facility] (varivax)(chicken 00:00:00 [place] [facility]ox[facility] DTAP 2003-06-04 Completed [facility] 00:00:00 [facility] HIB 3 Dose Schedule 2003-06-04 Completed [facility] 00:00:00 [facility] Hep B, Adol or Pedi 2003-06-04 Completed [facility] Dosage 00:00:00 [facility] MMR 2003-06-04 Completed [facility] 00:00:00 [facility] Polio (IPV/OPV) 2003-06-04 Completed [facility] 00:00:00 [facility] Varicella 2003-06-04 Completed [facility] (varivax)(chicken 00:00:00 [place] [facility] DTAP 2003-06-04 Completed [facility] 00:00:00 [facility] HIB 3 Dose Schedule 2003-06-04 Completed [facility] 00:00:00 [facility] Hep B, Adol or Pedi 2003-06-04 Completed [facility] Dosage 00:00:00 [facility] MMR 2003-06-04 Completed [facility] 00:00:00 [facility] Polio (IPV/OPV) 2003-06-04 Completed [facility] 00:00:00 [facility] Varicella 2003-06-04 Completed [facility] (varivax)(chicken 00:00:00 [place] [facility] pox[facility] DTAP 2003-06-04 Completed [facility] 00:00:00 [facility] HIB 3 Dose Schedule 2003-06-04 Completed [facility] 00:00:00 [facility] Hep B, Adol or Pedi 2003-06-04 Completed [facility] Dosage 00:00:00 [facility] MMR 2003-06-04 Completed [facility] 00:00:00 [facility] Polio (IPV/OPV) 2003-06-04 Completed [facility] 00:00:00 [facility] Varicella 2003-06-04 Completed [facility] (varivax)(chicken 00:00:00 [place] [facility]ox[facility] DTAP 2003-06-04 Completed [facility] 00:00:00 [facility] HIB 3 Dose Schedule 2003-06-04 Completed [facility] 00:00:00 [facility] Hep B, Adol or Pedi 2003-06-04 Completed [facility] Dosage 00:00:00 [facility] MMR 2003-06-04 Completed [facility] 00:00:00 [facility] Polio (IPV/OPV) 2003-06-04 Completed [facility] 00:00:00 [facility] Varicella 2003-06-04 Completed [facility] (varivax)(chicken 00:00:00 [place] [facility] pox) [facility] DTAP 2003-06-04 Completed [facility] 00:00:00 [facility] HIB 3 Dose Schedule 2003-06-04 Completed [facility] 00:00:00 [facility] Hep B, Adol or Pedi 2003-06-04 Completed [facility] Dosage 00:00:00 [facility] MMR 2003-06-04 Completed [facility] 00:00:00 [facility] Polio (IPV/OPV) 2003-06-04 Completed [facility] 00:00:00 [facility] Varicella 2003-06-04 Completed [facility] (varivax)(chicken 00:00:00 [place] [facility] pox) [facility] DTAP 2003-06-04 Completed [facility] 00:00:00 [facility] HIB 3 Dose Schedule 2003-06-04 Completed [facility] 00:00:00 [facility] Hep B, Adol or Pedi 2003-06-04 Completed [facility] Dosage 00:00:00 [facility] MMR 2003-06-04 Completed [facility] 00:00:00 [facility] Polio (IPV/OPV) 2003-06-04 Completed [facility] 00:00:00 [facility] Varicella 2003-06-04 Completed [facility] (varivax)(chicken 00:00:00 [place] [facility] pox[facility] DTAP 2003-06-04 Completed [facility] 00:00:00 [facility] HIB 3 Dose Schedule 2003-06-04 Completed [facility] 00:00:00 [facility] Hep B, Adol or Pedi 2003-06-04 Completed [facility] Dosage 00:00:00 [facility] MMR 2003-06-04 Completed [facility] 00:00:00 [facility] Polio (IPV/OPV) 2003-06-04 Completed [facility] 00:00:00 [facility] Varicella 2003-06-04 Completed [facility] (varivax)(chicken 00:00:00 [place] [facility] pox) [facility] DTAP 2003-06-04 Completed [facility] 00:00:00 [facility] HIB 3 Dose Schedule 2003-06-04 Completed [facility] 00:00:00 [facility] Hep B, Adol or Pedi 2003-06-04 Completed [facility] Dosage 00:00:00 [facility] MMR 2003-06-04 Completed [facility] 00:00:00 [facility] Polio (IPV/OPV) 2003-06-04 Completed [facility] 00:00:00 [facility] Varicella 2003-06-04 Completed [facility] (varivax)(chicken 00:00:00 [place] [facility] pox[facility] DTAP 2003-06-04 Completed [facility] 00:00:00 [facility] HIB 3 Dose Schedule 2003-06-04 Completed [facility] 00:00:00 [facility] Hep B, Adol or Pedi 2003-06-04 Completed [facility] Dosage 00:00:00 [facility] MMR 2003-06-04 Completed [facility] 00:00:00 [facility] Polio (IPV/OPV) 2003-06-04 Completed [facility] 00:00:00 [facility] Varicella 2003-06-04 Completed [facility] (varivax)(chicken 00:00:00 [facility] edical pox) Branch DTAP 2003-06-04 Completed [facility] 00:00:00 [facility] HIB 3 Dose Schedule 2003-06-04 Completed [facility] 00:00:00 [facility] Hep B, Adol or Pedi 2003-06-04 Completed [facility] Dosage 00:00:00 [facility] MMR 2003-06-04 Completed [facility] 00:00:00 [facility] Polio (IPV/OPV) 2003-06-04 Completed [facility] 00:00:00 [facility] Varicella 2003-06-04 Completed [facility] (varivax)(chicken 00:00:00 [place] [facility] pox) [facility] DTAP 2003-06-04 Completed [facility] 00:00:00 [facility] HIB 3 Dose Schedule 2003-06-04 Completed [facility] 00:00:00 [facility] Hep B, Adol or Pedi 2003-06-04 Completed [facility] Dosage 00:00:00 [facility] MMR 2003-06-04 Completed [facility] 00:00:00 [facility] Polio (IPV/OPV) 2003-06-04 Completed [facility] 00:00:00 [facility] Varicella 2003-06-04 Completed [facility] (varivax)(chicken 00:00:00 [place] [facility] pox) [facility] DTAP 2003-06-04 Completed [facility] 00:00:00 [facility] HIB 3 Dose Schedule 2003-06-04 Completed [facility] 00:00:00 [facility] Hep B, Adol or Pedi 2003-06-04 Completed [facility] Dosage 00:00:00 [facility] MMR 2003-06-04 Completed [facility] 00:00:00 [facility] Polio (IPV/OPV) 2003-06-04 Completed [facility] 00:00:00 [facility] Varicella 2003-06-04 Completed [facility] (varivax)(chicken 00:00:00 [place] [facility] pox) [facility] DTAP 2003-06-04 Completed [facility] 00:00:00 [facility] HIB 3 Dose Schedule 2003-06-04 Completed [facility] 00:00:00 [facility] Hep B, Adol or Pedi 2003-06-04 Completed [facility] Dosage 00:00:00 [facility] MMR 2003-06-04 Completed [facility] 00:00:00 [facility] Polio (IPV/OPV) 2003-06-04 Completed [facility] 00:00:00 [facility] Varicella 2003-06-04 Completed [facility] (varivax)(chicken 00:00:00 [place] [facility] pox) [facility] DTAP 2003-06-04 Completed [facility] 00:00:00 [facility] HIB 3 Dose Schedule 2003-06-04 Completed [facility] 00:00:00 [facility] Hep B, Adol or Pedi 2003-06-04 Completed [facility] Dosage 00:00:00 [facility] MMR 2003-06-04 Completed [facility] 00:00:00 [facility] Polio (IPV/OPV) 2003-06-04 Completed [facility] 00:00:00 [facility] Varicella 2003-06-04 Completed [facility] (varivax)(chicken 00:00:00 [place] [facility] pox) [facility] DTAP 2003-06-04 Completed [facility] 00:00:00 [facility] HIB 3 Dose Schedule 2003-06-04 Completed [facility] 00:00:00 [facility] Hep B, Adol or Pedi 2003-06-04 Completed [facility] Dosage 00:00:00 [facility] MMR 2003-06-04 Completed [facility] 00:00:00 [facility] Polio (IPV/OPV) 2003-06-04 Completed [facility] 00:00:00 [facility] Varicella 2003-06-04 Completed [facility] (varivax)(chicken 00:00:00 [place] [facility] pox) [facility] DTAP 2003-06-04 Completed [facility] 00:00:00 [facility] HIB 3 Dose Schedule 2003-06-04 Completed [facility] 00:00:00 [facility] Hep B, Adol or Pedi 2003-06-04 Completed [facility] Dosage 00:00:00 [facility] MMR 2003-06-04 Completed [facility] 00:00:00 [facility] Polio (IPV/OPV) 2003-06-04 Completed [facility] 00:00:00 [facility] Varicella 2003-06-04 Completed [facility] (varivax)(chicken 00:00:00 [place] [facility] pox) [facility] DTAP 2003-06-04 Completed [facility] 00:00:00 [facility] HIB 3 Dose Schedule 2003-06-04 Completed [facility] 00:00:00 [facility] Hep B, Adol or Pedi 2003-06-04 Completed [facility] Dosage 00:00:00 [facility] MMR 2003-06-04 Completed [facility] 00:00:00 [facility] Polio (IPV/OPV) 2003-06-04 Completed [facility] 00:00:00 [facility] Varicella 2003-06-04 Completed [facility] (varivax)(chicken 00:00:00 [place] [facility] pox) [facility] DTAP 2003-06-04 Completed [facility] 00:00:00 [facility] HIB 3 Dose Schedule 2003-06-04 Completed [facility] 00:00:00 [facility] Hep B, Adol or Pedi 2003-06-04 Completed [facility] Dosage 00:00:00 [facility] MMR 2003-06-04 Completed [facility] 00:00:00 [facility] Polio (IPV/OPV) 2003-06-04 Completed [facility] 00:00:00 [facility] Varicella 2003-06-04 Completed [facility] (varivax)(chicken 00:00:00 [place] [facility] pox) [facility] DTAP 2003-06-04 Completed [facility] 00:00:00 [facility] HIB 3 Dose Schedule 2003-06-04 Completed [facility] 00:00:00 [facility] Hep B, Adol or Pedi 2003-06-04 Completed [facility] Dosage 00:00:00 [facility] MMR 2003-06-04 Completed [facility] 00:00:00 [facility] Polio (IPV/OPV) 2003-06-04 Completed [facility] 00:00:00 [facility] Varicella 2003-06-04 Completed [facility] (varivax)(chicken 00:00:00 [place] [facility] pox) [facility] DTAP 2003-06-04 Completed [facility] 00:00:00 [facility] HIB 3 Dose Schedule 2003-06-04 Completed [facility] 00:00:00 [facility] Hep B, Adol or Pedi 2003-06-04 Completed [facility] Dosage 00:00:00 [facility] MMR 2003-06-04 Completed [facility] 00:00:00 [facility] Polio (IPV/OPV) 2003-06-04 Completed [facility] 00:00:00 [facility] Varicella 2003-06-04 Completed [facility] (varivax)(chicken 00:00:00 [place] [facility] pox) [facility] DTAP 2003-06-04 Completed [facility] 00:00:00 [facility] HIB 3 Dose Schedule 2003-06-04 Completed [facility] 00:00:00 [facility] Hep B, Adol or Pedi 2003-06-04 Completed [facility] Dosage 00:00:00 [facility] MMR 2003-06-04 Completed [facility] 00:00:00 [facility] Polio (IPV/OPV) 2003-06-04 Completed [facility] 00:00:00 [facility] Varicella 2003-06-04 Completed [facility] (varivax)(chicken 00:00:00 [place] [facility] pox) [facility] DTAP 2003-06-04 Completed [facility] 00:00:00 [facility] HIB 3 Dose Schedule 2003-06-04 Completed [facility] 00:00:00 [facility] Hep B, Adol or Pedi 2003-06-04 Completed [facility] Dosage 00:00:00 [facility] MMR 2003-06-04 Completed [facility] 00:00:00 [facility] Polio (IPV/OPV) 2003-06-04 Completed [facility] 00:00:00 [facility] Varicella 2003-06-04 Completed [facility] (varivax)(chicken 00:00:00 [place] [facility]ox[facility] DTAP 2003-06-04 Completed [facility] 00:00:00 [facility] HIB 3 Dose Schedule 2003-06-04 Completed [facility] 00:00:00 [facility] Hep B, Adol or Pedi 2003-06-04 Completed [facility] Dosage 00:00:00 [facility] MMR 2003-06-04 Completed [facility] 00:00:00 [facility] Polio (IPV/OPV) 2003-06-04 Completed [facility] 00:00:00 [facility] Varicella 2003-06-04 Completed [facility] (varivax)(chicken 00:00:00 [place] [facility] pox) [facility] DTAP 2003-06-04 Completed [facility] 00:00:00 [facility] HIB 3 Dose Schedule 2003-06-04 Completed [facility] 00:00:00 [facility] Hep B, Adol or Pedi 2003-06-04 Completed [facility] Dosage 00:00:00 [facility] MMR 2003-06-04 Completed [facility] 00:00:00 [facility] Polio (IPV/OPV) 2003-06-04 Completed [facility] 00:00:00 [facility] Varicella 2003-06-04 Completed [facility] (varivax)(chicken 00:00:00 [place] [facility] pox) [facility] DTAP 2003-06-04 Completed [facility] 00:00:00 [facility] HIB 3 Dose Schedule 2003-06-04 Completed [facility] 00:00:00 [facility] Hep B, Adol or Pedi 2003-06-04 Completed [facility] Dosage 00:00:00 [facility] MMR 2003-06-04 Completed [facility] 00:00:00 [facility] Polio (IPV/OPV) 2003-06-04 Completed [facility] 00:00:00 [facility] Varicella 2003-06-04 Completed [facility] (varivax)(chicken 00:00:00 [place] [facility] pox) [facility] DTAP 2003-06-04 Completed [facility] 00:00:00 [facility] HIB 3 Dose Schedule 2003-06-04 Completed [facility] 00:00:00 [facility] Hep B, Adol or Pedi 2003-06-04 Completed [facility] Dosage 00:00:00 [facility] MMR 2003-06-04 Completed [facility] 00:00:00 [facility] Polio (IPV/OPV) 2003-06-04 Completed [facility] 00:00:00 [facility] Varicella 2003-06-04 Completed [facility] (varivax)(chicken 00:00:00 [place] [facility] pox) [facility] DTAP 2003-06-04 Completed [facility] 00:00:00 [facility] HIB 3 Dose Schedule 2003-06-04 Completed [facility] 00:00:00 [facility] Hep B, Adol or Pedi 2003-06-04 Completed [facility] Dosage 00:00:00 [facility] MMR 2003-06-04 Completed [facility] 00:00:00 [facility] Polio (IPV/OPV) 2003-06-04 Completed [facility] 00:00:00 [facility] Varicella 2003-06-04 Completed [facility] (varivax)(chicken 00:00:00 [place] [facility]ox) [facility] DTAP 2003-06-04 Completed [facility] 00:00:00 [facility] HIB 3 Dose Schedule 2003-06-04 Completed [facility] 00:00:00 [facility] Hep B, Adol or Pedi 2003-06-04 Completed [facility] Dosage 00:00:00 [facility] MMR 2003-06-04 Completed [facility] 00:00:00 [facility] Polio (IPV/OPV) 2003-06-04 Completed [facility] 00:00:00 [facility] Varicella 2003-06-04 Completed [facility] (varivax)(chicken 00:00:00 [place] [facility] DTaP, Unspecified 2003-06-04 Completed [facility] Formulation 00:00:00 [facility] HIB 4 Dose Schedule 2003-06-04 Completed [facility] 00:00:00 [facility] IPV 2003-06-04 Completed [facility] 00:00:00 [facility] DTAP 2003-06-04 Completed [facility] 00:00:00 [facility] HIB 3 Dose Schedule 2003-06-04 Completed [facility] 00:00:00 [facility] Hep B, Adol or Pedi 2003-06-04 Completed [facility] Dosage 00:00:00 [facility] MMR 2003-06-04 Completed [facility] 00:00:00 [facility] Polio (IPV/OPV) 2003-06-04 Completed [facility] 00:00:00 [facility] Varicella 2003-06-04 Completed [facility] (varivax)(chicken 00:00:00 [place] [facility] DTaP, Unspecified 2003-06-04 Completed [facility] Formulation 00:00:00 [facility] HIB 4 Dose Schedule 2003-06-04 Completed [facility] 00:00:00 [facility] IPV 2003-06-04 Completed [facility] 00:00:00 [facility] DTAP 2003-06-04 Completed [facility] 00:00:00 [facility] HIB 3 Dose Schedule 2003-06-04 Completed [facility] 00:00:00 [facility] Hep B, Adol or Pedi 2003-06-04 Completed [facility] Dosage 00:00:00 [facility] MMR 2003-06-04 Completed [facility] 00:00:00 [facility] Polio (IPV/OPV) 2003-06-04 Completed [facility] 00:00:00 [facility] Varicella 2003-06-04 Completed University of (varivax)(chicken 00:00:00 [facility] edical pox) Branch DTaP, Unspecified 2003-06-04 Completed Univers ity of Formulation 00:00:00 [facility] HIB 4 Dose Schedule 2003-06-04 Completed Unive rsity of 00:00:00 [facility] IPV 2003-06-04 Completed [facility] of 00:00:00 [facility] DTAP 2003-06-04 Completed [facility] of 00:00:00 [facility] HIB 3 Dose Schedule 2003-06-04 Completed [facility]ive rsity of 00:00:00 [facility] Hep B, Adol or Pedi 2003-06-04 Completed Unive rsity of Dosage 00:00:00 [facility] MMR 2003-06-04 Completed [facility] of 00:00:00 [facility] Polio (IPV/OPV) 2003-06-04 Completed [facility] 00:00:00 [facility] Varicella 2003-06-04 Completed [facility] of (varivax)(chicken 00:00:00 [place] [facility] pox) Branch DTaP, Unspecified 2003-06-04 Completed [facility] ity of Formulation 00:00:00 [facility] HIB 4 Dose Schedule 2003-06-04 Completed Unive rsity of 00:00:00 [facility] IPV 2003-06-04 Completed [facility] of 00:00:00 [facility] DTAP 2003-06-04 Completed [facility] of 00:00:00 [facility] HIB 3 Dose Schedule 2003-06-04 Completed [facility]ive rsity of 00:00:00 [facility] Hep B, Adol or Pedi 2003-06-04 Completed [facility]ive rsity of Dosage 00:00:00 [facility] MMR 2003-06-04 Completed [facility] of 00:00:00 [facility] Polio (IPV/OPV) 2003-06-04 Completed [facility] 00:00:00 [facility] Varicella 2003-06-04 Completed [facility] of (varivax)(chicken 00:00:00 [place] [facility] pox) Branch DTaP, Unspecified 2003-06-04 Completed [facility] it[facility] of Formulation 00:00:00 [facility] HIB 4 Dose Schedule 2003-06-04 Completed [facility]ive rsity of 00:00:00 [facility] IPV 2003-06-04 Completed [facility] of 00:00:00 [facility] DTAP 2003-06-04 Completed [facility] of 00:00:00 [facility] HIB 3 Dose Schedule 2003-06-04 Completed [facility]ive rsity of 00:00:00 [facility] Hep B, Adol or Pedi 2003-06-04 Completed [facility]ive rsity of Dosage 00:00:00 [facility] MMR 2003-06-04 Completed [facility] of 00:00:00 [facility] Polio (IPV/OPV) 2003-06-04 Completed [facility] 00:00:00 [facility] Varicella 2003-06-04 Completed [facility] (varivax)(chicken 00:00:00 [place] [facility] pox) Branch DTaP, Unspecified 2003-06-04 Completed [facility] of Formulation 00:00:00 [facility] HIB 4 Dose Schedule 2003-06-04 Completed [facility]ive rsity of 00:00:00 [facility] IPV 2003-06-04 Completed [facility] of 00:00:00 [facility] DTAP 2003-06-04 Completed [facility] of 00:00:00 [facility] HIB 3 Dose Schedule 2003-06-04 Completed [facility]ive rsity of 00:00:00 [facility] Hep B, Adol or Pedi 2003-06-04 Completed [facility]ive rsity of Dosage 00:00:00 [facility] MMR 2003-06-04 Completed [facility] of 00:00:00 [facility] Polio (IPV/OPV) 2003-06-04 Completed [facility] 00:00:00 [facility] Varicella 2003-06-04 Completed [facility] of (varivax)(chicken 00:00:00 [place] [facility] pox) Branch DTaP, Unspecified 2003-06-04 Completed [facility] it[facility] of Formulation 00:00:00 [facility] HIB 4 Dose Schedule 2003-06-04 Completed [facility]ive rsity of 00:00:00 [facility] IPV 2003-06-04 Completed [facility] of 00:00:00 [facility] DTAP 2003-06-04 Completed [facility] of 00:00:00 [facility] HIB 3 Dose Schedule 2003-06-04 Completed [facility]ive rs[facility] of 00:00:00 [facility] Hep B, Adol or Pedi 2003-06-04 Completed [facility]ive rsity of Dosage 00:00:00 [facility] MMR 2003-06-04 Completed [facility] of 00:00:00 [facility] Polio (IPV/OPV) 2003-06-04 Completed [facility] 00:00:00 [facility] Varicella 2003-06-04 Completed [facility] of (varivax)(chicken 00:00:00 [facility] edical pox) Branch DTaP, Unspecified 2003-06-04 Completed [facility] it[facility] of Formulation 00:00:00 [facility] HIB 4 Dose Schedule 2003-06-04 Completed [facility]ive rsity of 00:00:00 [facility] IPV 2003-06-04 Completed [facility] of 00:00:00 [facility] DTAP 2003-06-04 Completed [facility] of 00:00:00 [facility] HIB 3 Dose Schedule 2003-06-04 Completed [facility]ive rsity of 00:00:00 [facility] Hep B, Adol or Pedi 2003-06-04 Completed Unive rsity of Dosage 00:00:00 [facility] MMR 2003-06-04 Completed [facility] of 00:00:00 [facility] Polio (IPV/OPV) 2003-06-04 Completed [facility] 00:00:00 [facility] Varicella 2003-06-04 Completed [facility] of (varivax)(chicken 00:00:00 [place] [facility] pox) Branch DTaP, Unspecified 2003-06-04 Completed [facility] it[facility] of Formulation 00:00:00 [facility] HIB 4 Dose Schedule 2003-06-04 Completed [facility]ive rsity of 00:00:00 [facility] IPV 2003-06-04 Completed [facility] of 00:00:00 [facility] Branch DTAP 2003-06-04 Completed [facility] of 00:00:00 [facility] HIB 3 Dose Schedule 2003-06-04 Completed [facility]ive rsity of 00:00:00 [facility] Hep B, Adol or Pedi 2003-06-04 Completed [facility]ive rsity of Dosage 00:00:00 [facility] MMR 2003-06-04 Completed [facility] of 00:00:00 [facility] Polio (IPV/OPV) 2003-06-04 Completed [facility] 00:00:00 [facility] Varicella 2003-06-04 Completed [facility] of (varivax)(chicken 00:00:00 [place] [facility] pox) Branch DTaP, Unspecified 2003-06-04 Completed [facility] it[facility] of Formulation 00:00:00 [facility] HIB 4 Dose Schedule 2003-06-04 Completed [facility]ive rsity of 00:00:00 [facility] IPV 2003-06-04 Completed [facility] of 00:00:00 [facility] DTAP 2003-06-04 Completed [facility] of 00:00:00 [facility] HIB 3 Dose Schedule 2003-06-04 Completed [facility]ive rsity of 00:00:00 [facility] Hep B, Adol or Pedi 2003-06-04 Completed [facility]ive rsity of Dosage 00:00:00 [facility] MMR 2003-06-04 Completed [facility] of 00:00:00 [facility] Polio (IPV/OPV) 2003-06-04 Completed [facility] 00:00:00 [facility] Varicella 2003-06-04 Completed [facility] of (varivax)(chicken 00:00:00 [place] [facility] pox) Branch DTaP, Unspecified 2003-06-04 Completed [facility] it[facility] of Formulation 00:00:00 [facility] HIB 4 Dose Schedule 2003-06-04 Completed [facility]ive rsity of 00:00:00 [facility] IPV 2003-06-04 Completed [facility] of 00:00:00 [facility] DTAP 2003-06-04 Completed [facility] of 00:00:00 [facility] HIB 3 Dose Schedule 2003-06-04 Completed [facility]ive rsity of 00:00:00 [facility] Hep B, Adol or Pedi 2003-06-04 Completed Unive rsity of Dosage 00:00:00 [facility] MMR 2003-06-04 Completed [facility] of 00:00:00 [facility] Polio (IPV/OPV) 2003-06-04 Completed [facility] 00:00:00 [facility] Varicella 2003-06-04 Completed [facility] of (varivax)(chicken 00:00:00 [place] [facility] pox) Branch DTaP, Unspecified 2003-06-04 Completed [facility] it[facility] of Formulation 00:00:00 [facility] HIB 4 Dose Schedule 2003-06-04 Completed [facility]ive rsity of 00:00:00 [facility] IPV 2003-06-04 Completed [facility] of 00:00:00 [facility] Branch DTAP 2003-06-04 Completed [facility] of 00:00:00 [facility] HIB 3 Dose Schedule 2003-06-04 Completed [facility]ive rsity of 00:00:00 [facility] Hep B, Adol or Pedi 2003-06-04 Completed [facility]ive rsity of Dosage 00:00:00 [facility] MMR 2003-06-04 Completed [facility] of 00:00:00 [facility] Polio (IPV/OPV) 2003-06-04 Completed [facility] 00:00:00 [facility] Varicella 2003-06-04 Completed [facility] of (varivax)(chicken 00:00:00 [facility] edical pox) Branch DTaP, Unspecified 2003-06-04 Completed [facility] ity of Formulation 00:00:00 [facility] HIB 4 Dose Schedule 2003-06-04 Completed Unive rsity of 00:00:00 [facility] IPV 2003-06-04 Completed [facility] of 00:00:00 [facility] Branch DTAP 2003-06-04 Completed [facility] of 00:00:00 [facility] HIB 3 Dose Schedule 2003-06-04 Completed [facility]ive rsity of 00:00:00 [facility] Hep B, Adol or Pedi 2003-06-04 Completed Unive rsity of Dosage 00:00:00 [facility] MMR 2003-06-04 Completed [facility] of 00:00:00 [facility] Polio (IPV/OPV) 2003-06-04 Completed [facility] 00:00:00 [facility] Varicella 2003-06-04 Completed [facility] of (varivax)(chicken 00:00:00 [facility] edical pox) Branch DTaP, Unspecified 2003-06-04 Completed [facility] ity of Formulation 00:00:00 [facility] HIB 4 Dose Schedule 2003-06-04 Completed [facility]ive rsity of 00:00:00 [facility] IPV 2003-06-04 Completed [facility] of 00:00:00 [facility] Branch DTAP 2003-06-04 Completed [facility] of 00:00:00 [facility] HIB 3 Dose Schedule 2003-06-04 Completed [facility]ive rsity of 00:00:00 [facility] Hep B, Adol or Pedi 2003-06-04 Completed Unive rsity of Dosage 00:00:00 [facility] MMR 2003-06-04 Completed [facility] of 00:00:00 [facility] Polio (IPV/OPV) 2003-06-04 Completed [facility] 00:00:00 [facility] Varicella 2003-06-04 Completed [facility] (varivax)(chicken 00:00:00 [place] [facility] pox) Branch DTaP, Unspecified 2003-06-04 Completed [facility] it[facility] of Formulation 00:00:00 [facility] HIB 4 Dose Schedule 2003-06-04 Completed [facility]ive rsity of 00:00:00 [facility] IPV 2003-06-04 Completed [facility] of 00:00:00 [facility] DTAP 2003-06-04 Completed [facility] of 00:00:00 [facility] HIB 3 Dose Schedule 2003-06-04 Completed [facility]ive rsity of 00:00:00 [facility] Hep B, Adol or Pedi 2003-06-04 Completed [facility]ive rsity of Dosage 00:00:00 [facility] MMR 2003-06-04 Completed [facility] of 00:00:00 [facility] Polio (IPV/OPV) 2003-06-04 Completed [facility] 00:00:00 [facility] Varicella 2003-06-04 Completed [facility] (varivax)(chicken 00:00:00 [place] [facility] pox) Branch DTaP, Unspecified 2003-06-04 Completed [facility] it[facility] of Formulation 00:00:00 [facility] HIB 4 Dose Schedule 2003-06-04 Completed [facility]ive rsity of 00:00:00 [facility] IPV 2003-06-04 Completed [facility] of 00:00:00 [facility] DTAP 2003-06-04 Completed [facility] of 00:00:00 [facility] HIB 3 Dose Schedule 2003-06-04 Completed [facility]ive rsity of 00:00:00 [facility] Hep B, Adol or Pedi 2003-06-04 Completed Unive rsity of Dosage 00:00:00 [facility] MMR 2003-06-04 Completed [facility] of 00:00:00 [facility] Polio (IPV/OPV) 2003-06-04 Completed [facility] 00:00:00 [facility] Varicella 2003-06-04 Completed [facility] of (varivax)(chicken 00:00:00 [facility] edical pox) Branch DTaP, Unspecified 2003-06-04 Completed [facility] ity of Formulation 00:00:00 [facility] HIB 4 Dose Schedule 2003-06-04 Completed Unive rsity of 00:00:00 [facility] IPV 2003-06-04 Completed [facility] of 00:00:00 [facility] Branch DTAP 2003-06-04 Completed [facility] of 00:00:00 [facility] HIB 3 Dose Schedule 2003-06-04 Completed Unive rsity of 00:00:00 [facility] Hep B, Adol or Pedi 2003-06-04 Completed Unive rsity of Dosage 00:00:00 [facility] MMR 2003-06-04 Completed University of 00:00:00 [facility] Polio (IPV/OPV) 2003-06-04 Completed [facility] 00:00:00 [facility] Varicella 2003-06-04 Completed [facility] of (varivax)(chicken 00:00:00 [facility] edical pox) Branch DTaP, Unspecified 2003-06-04 Completed Univers it[facility] of Formulation 00:00:00 [facility] HIB 4 Dose Schedule 2003-06-04 Completed Unive rsity of 00:00:00 [facility] IPV 2003-06-04 Completed [facility] of 00:00:00 [facility] DTAP 2003-06-04 Completed [facility] of 00:00:00 [facility] HIB 3 Dose Schedule 2003-06-04 Completed [facility]ive rsity of 00:00:00 [facility] Hep B, Adol or Pedi 2003-06-04 Completed Unive rsity of Dosage 00:00:00 [facility] MMR 2003-06-04 Completed [facility] of 00:00:00 [facility] Polio (IPV/OPV) 2003-06-04 Completed [facility] 00:00:00 [facility] Varicella 2003-06-04 Completed [facility] of (varivax)(chicken 00:00:00 [place] [facility] pox) Branch DTaP, Unspecified 2003-06-04 Completed [facility] it[facility] of Formulation 00:00:00 [facility] HIB 4 Dose Schedule 2003-06-04 Completed [facility]ive rsity of 00:00:00 [facility] IPV 2003-06-04 Completed [facility] of 00:00:00 [facility] DTAP 2003-06-04 Completed [facility] of 00:00:00 [facility] HIB 3 Dose Schedule 2003-06-04 Completed [facility]ive rsity of 00:00:00 [facility] Hep B, Adol or Pedi 2003-06-04 Completed Unive rsity of Dosage 00:00:00 [facility] MMR 2003-06-04 Completed [facility] of 00:00:00 [facility] Polio (IPV/OPV) 2003-06-04 Completed [facility] 00:00:00 [facility] Varicella 2003-06-04 Completed [facility] of (varivax)(chicken 00:00:00 [place] [facility] pox) Branch DTaP, Unspecified 2003-06-04 Completed [facility] of Formulation 00:00:00 [facility] HIB 4 Dose Schedule 2003-06-04 Completed [facility]ive rsity of 00:00:00 [facility] IPV 2003-06-04 Completed [facility] of 00:00:00 [facility] DTAP 2003-06-04 Completed [facility] of 00:00:00 [facility] HIB 3 Dose Schedule 2003-06-04 Completed [facility]ive rsity of 00:00:00 [facility] Hep B, Adol or Pedi 2003-06-04 Completed Unive rsity of Dosage 00:00:00 [facility] MMR 2003-06-04 Completed University of 00:00:00 [facility] Polio (IPV/OPV) 2003-06-04 Completed [facility] 00:00:00 [facility] Varicella 2003-06-04 Completed [facility] of (varivax)(chicken 00:00:00 [facility] edical pox) Branch DTaP, Unspecified 2003-06-04 Completed Univers ity of Formulation 00:00:00 [facility] HIB 4 Dose Schedule 2003-06-04 Completed Unive rsity of 00:00:00 [facility] IPV 2003-06-04 Completed [facility] of 00:00:00 [facility] DTAP 2003-06-04 Completed [facility] of 00:00:00 [facility] HIB 3 Dose Schedule 2003-06-04 Completed [facility]ive rsity of 00:00:00 [facility] Hep B, Adol or Pedi 2003-06-04 Completed Unive rsity of Dosage 00:00:00 [facility] MMR 2003-06-04 Completed [facility] of 00:00:00 [facility] Polio (IPV/OPV) 2003-06-04 Completed [facility] 00:00:00 [facility] Varicella 2003-06-04 Completed [facility] of (varivax)(chicken 00:00:00 [facility] edical pox) Branch DTaP, Unspecified 2003-06-04 Completed Univers ity of Formulation 00:00:00 [facility] HIB 4 Dose Schedule 2003-06-04 Completed Unive rsity of 00:00:00 [facility] IPV 2003-06-04 Completed [facility] of 00:00:00 [facility] DTAP 2003-06-04 Completed [facility] of 00:00:00 [facility] HIB 3 Dose Schedule 2003-06-04 Completed Unive rsity of 00:00:00 [facility] Hep B, Adol or Pedi 2003-06-04 Completed Unive rsity of Dosage 00:00:00 [facility] MMR 2003-06-04 Completed [facility] of 00:00:00 [facility] Polio (IPV/OPV) 2003-06-04 Completed [facility] 00:00:00 [facility] Varicella 2003-06-04 Completed [facility] (varivax)(chicken 00:00:00 [place] [facility] pox) Branch DTaP, Unspecified 2003-06-04 Completed [facility] ity of Formulation 00:00:00 [facility] HIB 4 Dose Schedule 2003-06-04 Completed Unive rsity of 00:00:00 [facility] IPV 2003-06-04 Completed [facility] of 00:00:00 [facility] DTAP 2003-06-04 Completed [facility] of 00:00:00 [facility] HIB 3 Dose Schedule 2003-06-04 Completed Unive rsity of 00:00:00 [facility] Hep B, Adol or Pedi 2003-06-04 Completed Unive rsity of Dosage 00:00:00 [facility] MMR 2003-06-04 Completed [facility] of 00:00:00 [facility] Polio (IPV/OPV) 2003-06-04 Completed [facility] 00:00:00 [facility] Varicella 2003-06-04 Completed [facility] (varivax)(chicken 00:00:00 [place] [facility] pox) Branch DTaP, Unspecified 2003-06-04 Completed [facility] ity of Formulation 00:00:00 [facility] HIB 4 Dose Schedule 2003-06-04 Completed Unive rsity of 00:00:00 [facility] IPV 2003-06-04 Completed [facility] of 00:00:00 [facility] DTAP 2003-06-04 Completed [facility] of 00:00:00 [facility] HIB 3 Dose Schedule 2003-06-04 Completed Unive rsity of 00:00:00 [facility] Hep B, Adol or Pedi 2003-06-04 Completed Unive rsity of Dosage 00:00:00 [facility] MMR 2003-06-04 Completed [facility] of 00:00:00 [facility] Polio (IPV/OPV) 2003-06-04 Completed [facility] 00:00:00 [facility] Varicella 2003-06-04 Completed [facility] of (varivax)(chicken 00:00:00 [place] [facility] pox) Branch DTaP, Unspecified 2003-06-04 Completed Univers ity of Formulation 00:00:00 [facility] HIB 4 Dose Schedule 2003-06-04 Completed Unive rsity of 00:00:00 [facility] IPV 2003-06-04 Completed [facility] of 00:00:00 [facility] DTAP 2003-06-04 Completed [facility] of 00:00:00 [facility] HIB 3 Dose Schedule 2003-06-04 Completed Unive rsity of 00:00:00 [facility] Hep B, Adol or Pedi 2003-06-04 Completed Unive rsity of Dosage 00:00:00 [facility] MMR 2003-06-04 Completed [facility] of 00:00:00 [facility] Polio (IPV/OPV) 2003-06-04 Completed [facility] 00:00:00 [facility] Varicella 2003-06-04 Completed [facility] (varivax)(chicken 00:00:00 [place] [facility] pox) Branch DTaP, Unspecified 2003-06-04 Completed [facility] of Formulation 00:00:00 [facility] HIB 4 Dose Schedule 2003-06-04 Completed [facility]ive rsity of 00:00:00 [facility] IPV 2003-06-04 Completed [facility] of 00:00:00 [facility] DTAP Unknown Completed [facility] DTAP Unknown Completed [facility] DTAP Unknown Completed [facility] DTAP Unknown Completed [facility] HIB 3 Dose Schedule Unknown Completed Unive rsity [facility] HIB 3 Dose Schedule Unknown Completed Unive rsity [facility] Hepatitis A Adult Unknown Completed Univers ity [facility] Hepatitis A Adult Unknown Completed Univers ity [facility] Hep B, Adol or Pedi Unknown Completed Unive rsity of Dosage [facility] Hep B, Adol or Pedi Unknown Completed Unive rsity of Dosage [facility] Hep B, Adol or Pedi Unknown Completed Unive rsity of Dosage [facility] Meningococcal Unknown Completed [facility] Vaccine [facility] MMR Unknown Completed [facility] MMR Unknown Completed [facility] Pneumococcal 13 Unknown Completed Universit y of Conjugate, PCV13 [facility] dical (Prevnar 13) Branch Polio (IPV/OPV) Unknown Completed Universit y [facility] Polio (IPV/OPV) Unknown Completed [facility] Polio (IPV/OPV) Unknown Completed [facility] Polio (IPV/OPV) Unknown Completed [facility] TDAP Unknown Completed [facility] Varicella Unknown Completed [facility] (varivax)(chicken [place] [facility] pox) Branch Varicella Unknown Completed University (varivax)(chicken [place] [facility] pox) Branch Meningococcal B, OMV Unknown Completed Univ ersity [facility] Influenza Virus Unknown Completed Universit y of Vaccine Quad .5 mL [facility] IM 6+ MO Branch (FLUZONE/FLULAVAL/FL UARIX) TDAP Unknown Completed [facility] DTaP, Unspecified Unknown Completed Univers ity of Formulation [facility] DTaP, Unspecified Unknown Completed [facility] it[facility] of Formulation [facility] DTaP, Unspecified Unknown Completed [facility] ity of Formulation [facility] DTaP, Unspecified Unknown Completed Univers ity of [facility] HEPA,NOS Unknown Completed [facility] HEPATITIS A Unknown Completed [facility] HIB 4 Dose Schedule Unknown Completed Unive rsity [facility] HIB 4 Dose Schedule Unknown Completed Unive rsity [facility] Meningococcal Unknown Completed [facility] Polysaccharide [place] [facility] (groups A, C, Y and Branc h W-135) conjugate vaccine (MCV4P) Pneumococcal 7 Unknown Completed University of Conjugate, PCV7 [facility] ical (Prevnar7) Branch IPV Unknown Completed [facility] IPV Unknown Completed [facility] IPV Unknown Completed [facility] IPV Unknown Completed [facility] TDAP Unknown Completed [facility] DTAP Unknown Completed [facility] DTAP Unknown Completed [facility] DTAP Unknown Completed [facility] DTAP Unknown Completed [facility] HIB 3 Dose Schedule Unknown Completed Unive rsity [facility] HIB 3 Dose Schedule Unknown Completed Unive rsity [facility] Hepatitis A Adult Unknown Completed Univers ity [facility] Hepatitis A Adult Unknown Completed Univers ity [facility] Hep B, Adol or Pedi Unknown Completed Unive rsity of Dosage [facility] Hep B, Adol or Pedi Unknown Completed Unive rsity of Dosage [facility] Hep B, Adol or Pedi Unknown Completed Unive rsity of Dosage [facility] Meningococcal Unknown Completed University Vaccine [facility] MMR Unknown Completed [facility] MMR Unknown Completed [facility] Pneumococcal 13 Unknown Completed Universit y of Conjugate, PCV13 [facility] dical (Prevnar 13) Branch Polio (IPV/OPV) Unknown Completed Universit y [facility] Polio (IPV/OPV) Unknown Completed Universit y of [facility] Polio (IPV/OPV) Unknown Completed Universit y of [facility] Polio (IPV/OPV) Unknown Completed Universit y of [facility] TDAP Unknown Completed [facility] Varicella Unknown Completed University of (varivax)(chicken [place] [facility] pox) Branch Varicella Unknown Completed University of (varivax)(chicken [place] [facility] pox) Branch Meningococcal B, OMV Unknown Completed Univ ersity [facility] Influenza Virus Unknown Completed Universit y of Vaccine Quad .5 mL [facility] 6+ MO Branch (FLUZONE/FLULAVAL/FL UARIX) TDAP Unknown Completed [facility] DTaP, Unspecified Unknown Completed Univers ity of Formulation [facility] DTaP, Unspecified Unknown Completed Univers ity of Formulation [facility] DTaP, Unspecified Unknown Completed Univers ity of Formulation [facility] DTaP, Unspecified Unknown Completed Univers ity of Formulation [facility] HEPA,NOS Unknown Completed [facility] HEPATITIS A Unknown Completed [facility] HIB 4 Dose Schedule Unknown Completed Unive rsity [facility] HIB 4 Dose Schedule Unknown Completed Unive rsity [facility] Meningococcal Unknown Completed [facility] (groups A, C, Y and Branc h W-135) conjugate vaccine (MCV4P) Pneumococcal 7 Unknown Completed [facility] Conjugate, PCV7 [facility] ical (Prevnar7) Branch IPV Unknown Completed [facility] IPV Unknown Completed [facility] IPV Unknown Completed [facility] IPV Unknown Completed [facility] TDAP Unknown Completed [facility] DTAP Unknown Completed [facility] DTAP Unknown Completed [facility] DTAP Unknown Completed [facility] DTAP Unknown Completed [facility] HIB 3 Dose Schedule Unknown Completed Unive rsity [facility] HIB 3 Dose Schedule Unknown Completed Unive rsity [facility] Hepatitis A Adult Unknown Completed Univers ity [facility] Hepatitis A Adult Unknown Completed Univers ity [facility] Hep B, Adol or Pedi Unknown Completed Unive rsity of Dosage [facility] Hep B, Adol or Pedi Unknown Completed Unive rsity of Dosage [facility] Hep B, Adol or Pedi Unknown Completed Unive rsity of Dosage [facility] Meningococcal Unknown Completed University Vaccine [facility] MMR Unknown Completed [facility] MMR Unknown Completed [facility] Pneumococcal 13 Unknown Completed Universit y of Conjugate, PCV13 [facility] dical (Prevnar 13) Branch Polio (IPV/OPV) Unknown Completed Universit y [facility] Polio (IPV/OPV) Unknown Completed Universit y [facility] Polio (IPV/OPV) Unknown Completed Universit y [facility] Polio (IPV/OPV) Unknown Completed Universit y [facility] TDAP Unknown Completed [facility] Varicella Unknown Completed University of (varivax)(chicken [place] [facility] pox) Branch Varicella Unknown Completed University (varivax)(chicken [place] [facility] pox) Branch Meningococcal B, OMV Unknown Completed Univ ersity [facility] Influenza Virus Unknown Completed Universit y of Vaccine Quad .5 mL [facility] 6+ MO Branch (FLUZONE/FLULAVAL/FL UARIX) TDAP Unknown Completed [facility] DTaP, Unspecified Unknown Completed Univers ity of Formulation [facility] DTaP, Unspecified Unknown Completed Univers ity of Formulation [facility] DTaP, Unspecified Unknown Completed Univers ity of Formulation [facility] DTaP, Unspecified Unknown Completed Univers ity of Formulation [facility] HEPA,NOS Unknown Completed [facility] HEPATITIS A Unknown Completed [facility] HIB 4 Dose Schedule Unknown Completed Unive rsity [facility] HIB 4 Dose Schedule Unknown [facility] Completed [facility] (groups A, C, Y and Branc h W-135) conjugate vaccine (MCV4P) Pneumococcal 7 Unknown Completed [facility] Conjugate, PCV7 [facility] ical (Prevnar7) Branch IPV Unknown Completed [facility] IPV Unknown Completed [facility] IPV Unknown Completed [facility] IPV Unknown Completed [facility] DTAP Unknown Completed [facility] DTAP Unknown Completed [facility] DTAP Unknown Completed [facility] DTAP Unknown Completed [facility] HIB 3 Dose Schedule Unknown [facility] D[facility] Schedule Unknown Com[facility] A Adult Unknown Completed Univers ity [facility] Hepatitis A Adult Unknown Completed Univers ity [facility] Hep B, Adol or Pedi Unknown Completed Unive rsity of Dosage [facility] Hep B, Adol or Pedi Unknown Completed Unive rsity of Dosage [facility] Hep B, Adol or Pedi Unknown Completed Unive rsity of Dosage [facility] Meningococcal Unknown Completed University of Vaccine [facility] MMR Unknown Completed [facility] MMR Unknown Completed [facility] Pneumococcal 13 Unknown Completed Universit y of Conjugate, PCV13 [facility] dical (Prevnar 13) Branch Polio (IPV/OPV) Unknown Completed Universit y [facility] Polio (IPV/OPV) Unknown Completed Universit y [facility] Polio (IPV/OPV) Unknown Completed Universit y [facility] Polio (IPV/OPV) Unknown Completed Universit [facility] TDAP Unknown Completed [facility] Varicella Unknown Completed University of (varivax)([facility]icken [place] [facility] pox) Branch Varicella Unknown Completed [facility] of (varivax)([facility] [place] [facility] pox) Branch Meningococcal B, OMV Unknown Completed Univ [facility] Influenza Virus Unknown Completed Universit y of Vaccine Quad .5 mL [facility] IM 6+ [place] Branch (FLUZONE/FLULAVAL/FL UARIX) TDAP Unknown Completed [facility] DTaP, Unspecified Unknown Completed Univers ity of Formulation [facility] DTaP, Unspecified Unknown Completed Univers ity of Formulation [facility] DTaP, Unspecified Unknown Completed Univers ity of Formulation [facility] DTaP, Unspecified Unknown Completed Univers ity of Formulation [facility] HEPA,NOS Unknown Completed [facility] HEPATITIS A Unknown Completed [facility] HIB 4 Dose Schedule Unknown Completed [facility]ive [facility] HIB 4 Dose Schedule Unknown [facility] Meningococcal Unknown Completed [facility] (groups A, C, Y and Branc h W-135) conjugate vaccine (MCV4P) Pneumococcal 7 Unknown Completed [facility] Conjugate, PCV7 [facility] ica (Prevnar7) Branch IPV Unknown Completed [facility] IPV Unknown Completed [facility] IPV Unknown Completed [facility] IPV Unknown Completed [facility] Vital Signs Vital Name Observation Time Observation Value Comments Source Systolic blood 2022-08-12 15:38:00 123 mm[Hg] [facility] Diastolic blood 2022-08-12 15:38:00 81 mm[Hg] [facility] Heart rate 2022-08-12 15:38:00 92 /min [facility] Body temperature 2022-08-12 15:38:00 35.83 Nabila [facility] Respiratory rate 2022-08-12 15:38:00 18 /min [facility] Body height 2022-08-12 15:38:00 167.6 cm [facility] Body weight 2022-08-12 15:38:00 80.377 kg [facility] BMI 2022-08-12 15:38:00 28.60 kg/m2 [facility] Systolic blood 2022-08-01 15:20:00 134 mm[Hg] [facility] 2022-08-01 15:20:00 90 mm[Hg] Unive rsity of pressure [facility] Heart rate 2022-08-01 14:55:00 91 /min Universi ty of [facility] Body temperature 2022-08-01 14:55:00 36.5 Nabila Univ ersity of [facility] Branch Respiratory rate 2022-08-01 14:55:00 17 /min Univ ersity of [facility] Body height 2022-08-01 14:55:00 167.6 cm Universi ty of [facility] Body weight 2022-08-01 14:55:00 81.874 kg Universi ty [facility] [place] [facility] BMI 2022-08-01 14:55:00 29.13 kg/m2 Universi ty of [facility] Systolic blood 2022-07-29 16:00:00 131 mm[Hg] Univer sity of pressure [facility] Diastolic blood 2022-07-29 16:00:00 77 mm[Hg] Unive rsity of [facility] Branch Respiratory rate 2022-07-29 15:56:00 18 /min Univ ersity of [facility] Heart rate 2022-07-29 12:15:00 112 /min Universi ty of [facility] Oxygen saturation in 2022-07-29 12:15:00 96 /min University of Arterial blood by [facility] Pulse oxim[facility] [place] Body temperature 2022-07-29 10:00:00 36.89 Nabila Univ ersity of [facility] Body height 2022-07-29 03:10:00 167.6 cm Universi ty of [place] [facility] [place] Body weight 2022-07-29 03:10:00 83.643 kg Universi ty of [facility] [place] [facility] BMI 2022-07-29 03:10:00 29.76 kg/m2 Universi ty of [facility] Systolic blood 2022-07-25 13:45:00 140 mm[Hg] Univer sity of pressure [facility] Diastolic blood 2022-07-25 13:45:00 97 mm[Hg] Unive rsity of pressure [facility] Heart rate 2022-07-25 12:15:00 92 /min Universi ty of [facility] Body temperature 2022-07-25 12:15:00 36.67 Nabila Univ ersity of [facility] Respiratory rate 2022-07-25 12:15:00 18 /min Univ ersity of [facility] Oxygen saturation in 2022-07-25 12:15:00 100 /min University of Arterial blood by [facility] Branch Body height 2022-07-24 14:30:00 167.6 cm Universi ty of [facility] [place] [facility] Systolic blood 2022-07-23 18:30:00 130 mm[Hg] Univer sity of pressure [facility] Diastolic blood 2022-07-23 18:30:00 84 mm[Hg] Unive rsity of pressure [facility] Heart rate 2022-07-23 18:30:00 115 /min Universi ty of [facility] [place] [facility] Body temperature 2022-07-23 18:30:00 36.94 Nabila Univ ersity of [facility] Respiratory rate 2022-07-23 18:30:00 18 /min Univ ersity of [facility] Oxygen saturation in 2022-07-23 18:30:00 99 /min University of Arterial blood by [facility] Pulse [facility] Branch Body height 2022-07-21 15:36:00 167.6 cm Universi ty [facility] [place] [facility] Body weight 2022-07-21 15:36:00 89.359 kg Universi ty of [facility] [place] [facility] BMI 2022-07-21 15:36:00 31.80 kg/m2 Universi ty of [facility] [place] [facility] Systolic blood 2022-07-21 18:00:00 131 mm[Hg] Univer sity of pressure [facility] Diastolic blood 2022-07-21 18:00:00 84 mm[Hg] Unive rsity of pressure [facility] Heart rate 2022-07-21 18:00:00 104 /min [facility]i ty [facility] Body temperature 2022-07-21 18:00:00 36.56 Nabila Univ ersity of [facility] Respiratory rate 2022-07-21 18:00:00 18 /min Univ ersity of [facility] [place] [facility] Oxygen saturation in 2022-07-21 18:00:00 100 /min University of Arterial blood by [facility]ulse [facility] Branch Body height 2022-07-21 15:36:00 167.6 cm Universi ty of [facility] [place] [facility] Body weight 2022-07-21 15:36:00 89.359 kg [facility] BMI 2022-07-21 15:36:00 31.80 kg/m2 Universi ty of [facility] [place] [facility] Systolic blood 2022-07-17 17:09:00 103 mm[Hg] Univer sity of pressure [facility] Diastolic blood 2022-07-17 17:09:00 51 mm[Hg] Unive rsity of pressure [facility] Heart rate 2022-07-17 17:09:00 82 /min Universi ty of [facility] Body temperature 2022-07-17 17:09:00 36.56 Nabila Univ ersity of [facility] [place] [facility] Respiratory rate 2022-07-17 17:09:00 16 /min Univ ersity of [facility] [place] [facility] Oxygen saturation in 2022-07-17 17:09:00 99 /min University of Arterial blood by [email or web address] [facility] Pulse oxim[facility] Branch Body height 2022-07-17 15:58:00 167.6 cm 5' 6" Universi ty of [facility] [place] [facility] Body weight 2022-07-17 15:58:00 87.816 kg 193.6lb Universi ty of [facility] [place] [facility] BMI 2022-07-17 15:58:00 31.25 kg/m2 [facility] ty [facility] [place] [facility] Systolic blood 2022-07-11 06:00:00 121 mm[Hg] Univer sity of pressure [facility] [place] [facility] Diastolic blood 2022-07-11 06:00:00 68 mm[Hg] Unive rsity of pressure [facility] [place] [facility] Heart rate 2022-07-11 06:00:00 100 /min Universi ty of [facility] [place] [facility] Oxygen saturation in 2022-07-11 06:00:00 99 /min University of Arterial blood by [email or web address] [facility] Pulse oxim[facility] Branch Body temperature 2022-07-11 04:00:00 36.78 Nabila Univ ersity of [facility] [place] [facility] Respiratory rate 2022-07-11 04:00:00 18 /min Univ ersity of [facility] Body height 2022-07-11 04:00:00 167.6 cm [facility]i ty [facility] [place] [facility] Body weight 2022-07-11 04:00:00 89.313 kg [facility]i ty of [place] [facility] BMI 2022-07-11 04:00:00 31.78 kg/m2 Universi ty of [facility] [place] [facility] Systolic blood 2022-07-08 19:21:00 133 mm[Hg] Univer sity of pressure [facility] [place] [facility] Diastolic blood 2022-07-08 19:21:00 79 mm[Hg] Unive rsity of pressure [facility] Heart rate 2022-07-08 19:21:00 94 /min Universi ty of [facility] Body temperature 2022-07-08 19:21:00 36.22 Nabila Univ ersity of [facility] Respiratory rate 2022-07-08 19:21:00 18 /min Univ ersity of [facility] Body height 2022-07-08 19:21:00 167.6 cm Universi ty of [facility] [place] [facility] Body weight 2022-07-08 19:21:00 86.909 kg Universi ty of [facility] Branch BMI 2022-07-08 19:21:00 30.93 kg/m2 Universi ty of [facility] Heart rate 2022-07-06 09:15:00 96 /min Universi ty of [facility] Oxygen saturation in 2022-07-06 09:15:00 99 /min University of Arterial blood by [facility] Pulse oximetry Branch Systolic blood 2022-07-06 05:20:00 121 mm[Hg] Univer sity of pressure [facility] Diastolic blood 2022-07-06 05:20:00 70 mm[Hg] Unive rsity of pressure [facility] Body temperature 2022-07-06 05:20:00 37.06 Nabila Univ ersity of [facility] Body height 2022-07-06 05:20:00 167.6 cm [facility]i ty [facility] [place] [facility] [place] Body weight 2022-07-06 05:20:00 86.637 kg [facility]i ty of [facility] [place] [facility] BMI 2022-07-06 05:20:00 30.83 kg/m2 Universi ty of [facility] Respiratory rate 2022-07-06 05:01:00 16 /min Univ ersity of [facility] Systolic blood 2022-06-23 19:46:00 135 mm[Hg] Univer sity of pressure [facility] [place] [facility] Diastolic blood 2022-06-23 19:46:00 85 mm[Hg] Unive rsity of pressure [facility] Heart rate 2022-06-23 19:46:00 102 /min Universi ty of [facility] Body temperature 2022-06-23 19:46:00 36.11 Nabila Univ ersity of [facility] [place] [facility] Respiratory rate 2022-06-23 19:46:00 18 /min Univ ersity of [facility] [place] [facility] Body height 2022-06-23 19:46:00 167.6 cm [facility] [place] [facility] Body weight 2022-06-23 19:46:00 85.004 kg [facility] ty [facility] [place] [facility] BMI 2022-06-23 19:46:00 30.25 kg/m2 [facility] ty [facility] [place] [facility] Systolic blood 2022-06-09 18:04:00 110 mm[Hg] Univer sity of pressure [facility] [place] [facility] Diastolic blood 2022-06-09 18:04:00 60 mm[Hg] Unive rsity of pressure [facility] Heart rate 2022-06-09 17:59:00 112 /min Universi ty of [facility] Body temperature 2022-06-09 17:57:00 36.28 Nabila Univ ers[facility] of [facility] [place] [facility] Respiratory rate 2022-06-09 17:57:00 18 /min Univ ersity of [facility] [place] [facility] Body height 2022-06-09 17:57:00 170.2 cm [facility]i [facility] [place] [facility] Body weight 2022-06-09 17:57:00 85.911 kg [facility]i ty [facility] [place] [facility] BMI 2022-06-09 17:57:00 29.66 kg/m2 [facility] ty [facility] [place] [facility] Body temperature 2022-06-02 15:34:00 36.72 Nabila Univ ers[facility] of [facility] [place] [facility] Body weight 2022-06-02 15:34:00 85.73 kg Universi ty of [facility] [place] [facility] BMI 2022-06-02 15:34:00 30.51 kg/m2 [facility] ty of [facility] [place] [facility] Systolic blood 2022-05-26 15:34:00 111 mm[Hg] Univer sity of pressure [facility] Diastolic blood 2022-05-26 15:34:00 71 mm[Hg] Unive rsity of pressure [facility] Heart rate 2022-05-26 15:34:00 87 /min Universi ty of [facility] [place] [facility] Body temperature 2022-05-26 15:34:00 36.33 Nabila Univ ers[facility] of [facility] [place] [facility] Respiratory rate 2022-05-26 15:34:00 18 /min Univ ersity of [facility] [place] [facility] Body height 2022-05-26 15:34:00 167.6 cm Universi ty of [facility] [place] [facility] Body weight 2022-05-26 15:34:00 85.73 kg Universi ty of [facility] BMI 2022-05-26 15:34:00 30.51 kg/m2 [facility]i ty of [facility] Body temperature 2022-05-19 15:46:00 36.17 Nabila Univ ersity of [facility] Body weight 2022-05-19 15:46:00 85.095 kg [facility]i ty of [facility] [place] [facility] BMI 2022-05-19 15:46:00 30.28 kg/m2 [facility]i ty of [facility] [place] [facility] Systolic blood 2022-05-12 20:15:00 122 mm[Hg] Univer sity of pressure [facility] Diastolic blood 2022-05-12 20:15:00 67 mm[Hg] Unive rsity of pressure [facility] Heart rate 2022-05-12 20:15:00 85 /min Universi ty of [facility] [place] [facility] Body temperature 2022-05-12 20:15:00 35.83 Nabila Univ ersity of [facility] Respiratory rate 2022-05-12 20:15:00 18 /min Univ ersity of [facility] [place] [facility] Body height 2022-05-12 20:15:00 167.6 cm Universi ty of [facility] [place] [facility] Body weight 2022-05-12 20:15:00 83.961 kg Universi ty of [facility] [place] [facility] BMI 2022-05-12 20:15:00 29.88 kg/m2 [facility] ty [facility] [place] [facility] Body temperature 2022-05-05 16:37:00 36.56 Nabila Univ ers[facility] of [facility] Body weight 2022-05-05 16:37:00 83.553 kg [facility]i ty [facility] [place] [facility] Systolic blood 2022-04-28 17:19:00 128 mm[Hg] Univer sity of pressure [facility] [place] [facility] Diastolic blood 2022-04-28 17:19:00 73 mm[Hg] Unive rsity of pressure [facility] [place] [facility] Heart rate 2022-04-28 17:19:00 87 /min Universi ty of [facility] [place] [facility] Body temperature 2022-04-28 17:19:00 37.06 Nabila Univ ersity of [facility] Respiratory rate 2022-04-28 17:19:00 18 /min Univ ersity [facility] Body weight 2022-04-28 17:19:00 82.736 kg Universi ty of [facility] Body temperature 2022-04-21 16:16:00 36.61 Nabila Univ [facility] Body weight 2022-04-21 16:16:00 81.421 kg Universi ty of [facility] BMI 2022-04-21 16:16:00 28.97 kg/m2 [facility]i ty of [facility] Systolic blood 2022-04-14 16:55:00 119 mm[Hg] Univer sity of pressure [facility] Diastolic blood 2022-04-14 16:55:00 72 mm[Hg] Unive rsity of pressure [facility] Heart rate 2022-04-14 16:55:00 75 /min Universi ty of [facility] Body temperature 2022-04-14 16:55:00 36.78 Nabila Univ ers[facility] of [facility] Respiratory rate 2022-04-14 16:55:00 16 /min Univ ersity of [facility] Body height 2022-04-14 16:55:00 167.6 cm [facility] Body weight 2022-04-14 16:55:00 79.742 kg [facility] BMI 2022-04-14 16:55:00 28.37 kg/m2 Universi ty of [facility] Systolic blood 2022-04-07 19:07:00 [...] 2022-04-07 19:07:00 78.835 kg [facility] Systolic blood 2022-03-31 15:59:00 118 mm[Hg] Univer sity of pressure [facility] Diastolic blood 2022-03-31 15:59:00 76 mm[Hg] Unive rsity of pressure [facility] Heart rate 2022-03-31 15:59:00 82 /min Universi ty of [facility] Body temperature 2022-03-31 15:59:00 37.11 Nabila Univ ers[facility] of [facility] Respiratory rate 2022-03-31 15:59:00 18 /min Univ ersity of [facility] Body height 2022-03-31 15:59:00 167.6 cm [facility]i [facility] [place] [facility] Body weight 2022-03-31 15:59:00 76.885 kg [facility] ty [facility] [place] [facility] BMI 2022-03-31 15:59:00 27.36 kg/m2 [facility] Body temperature 2022-03-24 15:55:00 36.61 Nabila Univ ers[facility] of [facility] Respiratory rate 2022-03-24 15:55:00 18 /min Univ ersity of [facility] Body weight 2022-03-24 15:55:00 75.796 kg [facility] [place] [facility] Systolic blood 2022-03-10 17:15:00 116 mm[Hg] Univer sity of pressure [facility] Diastolic blood 2022-03-10 17:15:00 74 mm[Hg] Unive rsity of pressure [facility] Heart rate 2022-03-10 17:15:00 77 /min [facility]i ty [facility] Body temperature 2022-03-10 17:15:00 36.94 Nabila Univ ers[facility] of [facility] Respiratory rate 2022-03-10 17:15:00 20 /min Univ ersity of [facility] Body height 2022-03-10 17:15:00 167.6 cm [facility] Body weight 2022-03-10 17:15:00 72.938 kg [facility] BMI 2022-03-10 17:15:00 25.95 kg/m2 [facility] Systolic blood 2022-02-24 16:18:00 109 mm[Hg] [facility] [place] [facility] Diastolic blood 2022-02-24 16:18:00 68 mm[Hg] [facility] [place] [facility] Heart rate 2022-02-24 16:18:00 83 /min [facility] Body temperature 2022-02-24 16:18:00 36.44 Nabila [facility] [place] [facility] Respiratory rate 2022-02-24 16:18:00 18 /min [facility] [place] [facility] Body height 2022-02-24 16:18:00 167.6 cm [facility] Body weight 2022-02-24 16:18:00 69.673 kg [facility] [place] [facility] BMI 2022-02-24 16:18:00 24.79 kg/m2 [facility] Systolic blood 2022-02-10 19:32:00 135 mm[Hg] [facility] Diastolic blood 2022-02-10 19:32:00 90 mm[Hg] [facility] Heart rate 2022-02-10 19:32:00 130 /min [facility] Body temperature 2022-02-10 19:32:00 36.89 Nabila [facility] Respiratory rate 2022-02-10 19:32:00 20 /min [facility] Body height 2022-02-10 19:32:00 167.6 cm [facility] Body weight 2022-02-10 19:32:00 71.215 kg [facility] BMI 2022-02-10 19:32:00 25.34 kg/m2 [facility] Systolic blood 2022-01-27 15:32:00 127 mm[Hg] [facility] Diastolic blood 2022-01-27 15:32:00 77 mm[Hg] [facility] Heart rate 2022-01-27 15:32:00 99 /min [facility] Body temperature 2022-01-27 15:32:00 36.22 Nabila [facility] Respiratory rate 2022-01-27 15:32:00 20 /min [facility] Body height 2022-01-27 15:32:00 167.6 cm [facility] Body weight 2022-01-27 15:32:00 70.988 kg [facility] BMI 2022-01-27 15:32:00 25.26 kg/m2 [facility] Systolic blood 2021-12-23 14:24:00 118 mm[Hg] [facility] Diastolic blood 2021-12-23 14:24:00 77 mm[Hg] [facility] Heart rate 2021-12-23 14:24:00 87 /min [facility] Body temperature 2021-12-23 14:24:00 37 Nabila [facility] Respiratory rate 2021-12-23 14:24:00 18 /min [facility] Body height 2021-12-23 14:24:00 167.6 cm [facility] Body weight 2021-12-23 14:24:00 70.761 kg [facility] BMI 2021-12-23 14:24:00 25.18 kg/m2 [facility] Systolic blood 2021-12-09 14:24:00 118 mm[Hg] [facility] Diastolic blood 2021-12-09 14:24:00 79 mm[Hg] [facility] Heart rate 2021-12-09 14:24:00 88 /min [facility] Body temperature 2021-12-09 14:24:00 36.67 Nabila [facility] Respiratory rate 2021-12-09 14:24:00 16 /min [facility] Body height 2021-12-09 14:24:00 167.6 cm [facility] Body weight 2021-12-09 14:24:00 72.53 kg [facility] BMI 2021-12-09 14:24:00 25.81 kg/m2 [facility] Oxygen saturation in 2021-12-09 14:24:00 97 /min [facility] Arterial blood by [facility] Pulse oximetry Branch Systolic blood 2021-10-12 18:17:00 124 mm[Hg] [facility] [place] [facility] Diastolic blood 2021-10-12 18:17:00 90 mm[Hg] [facility] [place] [facility] Heart rate 2021-10-12 18:17:00 112 /min [facility] Body temperature 2021-10-12 18:17:00 37.11 Nabila [facility] 2021-10-12 18:17:00 20 /min [facility] Body height 2021-10-12 18:17:00 167.6 cm [facility] Body weight 2021-10-12 18:17:00 68.04 kg [facility] BMI 2021-10-12 18:17:00 24.21 kg/m2 [facility] Procedures Procedure Date / Time Performing Clinician Source Performed PROTEIN CREAT RATIO 2022-07-29 05:00:00 Kasey Blanco [facility] URINE RANDOM [facility] CBC WITH DIFF 2022-07-25 10:37:00 Kasey Blanco [facility] COMP. METABOLIC PANEL 2022-07-25 03:06:00 Kasey Blanco [facility] ([id number]) [facility] CBC WITH DIFF 2022-07-25 03:06:00 Kasey Blanco [facility] PROTEIN CREAT RATIO 2022-07-25 03:06:00 Kasey Blanco [facility] URINE RANDOM [facility] CBC WITH DIFF 2022-07-22 08:27:00 Adum, Hetal Mario [facility] CBC WITH DIFF 2022-07-22 08:27:00 Adum, Hetal Mario [facility] SECTION 2022-07-21 18:36:00 Adum, Hetal Mario [facility] SECTION 2022-07-21 18:36:00 Adum, Hetal Mario [facility] URINE DRUG (IMMUNOASSAY) 2022-07-21 18:12:00 Adum, Hetal Avendano [facility] SCREEN W/O REFLEX URINE DRUG (IMMUNOASSAY) 2022-07-21 18:12:00 Adum, Hetal Avendano [facility] SCREEN W/O REFLEX CBC WITH DIFF 2022-07-21 16:52:00 Adum, Hetal Mario [facility] HEPATITIS B SURFACE 2022-07-21 16:52:00 Adum, Hetal Mario [facility] ANTIGEN [facility] HB ABO GROUPING 2022-07-21 16:52:00 Adum, Hetal Mario [facility] ADC OR KATALINA ONLY - 2022-07-21 16:52:00 Adum, Hetal Mario [facility] HIV 1/2 AG-AB WITH 2022-07-21 16:52:00 Adum, Hetal Mario [facility] REFLEX [facility] CBC WITH DIFF 2022-07-21 16:52:00 Adum, Hetal Mario [facility] HEPATITIS B SURFACE 2022-07-21 16:52:00 Adum, Hetal Mario [facility] ANTIGEN [facility] HB ABO GROUPING 2022-07-21 16:52:00 Adum, Hetal Mario [facility] ADC OR KATALINA ONLY - 2022-07-21 16:52:00 Adum, Hetal Mario [facility] HIV 1/2 AG-AB WITH 2022-07-21 16:52:00 Adum, Hetal Mario [facility] REFLEX [facility] RHO (D) IMMUNE GLOBULIN 2022-07-21 16:52:00 Tony Blanco [facility] ADC ONLY - FERN TEST 2022-07-21 16:06:00 Adum, Hetal Mario [facility] ADC ONLY - FERN TEST 2022-07-21 16:06:00 Adum, Hetal Mario [facility] CONSENT/REFUSAL FOR 2022-07-21 15:31:39 Doctor Unassigned, No [facility] [place] [facility] CONSENT/REFUSAL FOR 2022-07-21 15:31:39 Doctor Unassigned, No [facility] [place] [facility] Name [facility] Branch URINALYSIS 2022-07-17 16:35:00 Adum, Hetal Mario [facility] ADC ONLY - FERN TEST 2022-07-17 16:35:00 Adum, Hetal Mario [facility] URINALYSIS 2022-07-11 06:30:00 Austin Arzola Gila o f [facility] ADC CLC OR LCC ONLY - 2022-07-11 06:30:00 Austin Arzola [facility] NOTICE OF PRIVACY 2022-07-11 03:43:30 Doctor Unassigned, No [facility] PRACTICES [facility] CONSENT/REFUSAL FOR 2022-07-11 03:43:01 Doctor Unassigned, No [facility] DIAGNOSIS AND TREATMENT [facility] ASSIGNMENT OF BENEFITS 2022-07-11 03:42:40 Doctor Unassigned, No [facility] POCT URINALYSIS 2022-07-08 19:23:00 Antonette Solano [facility] L&D VISIT 2022-07-06 05:01:00 Doctor Unassigned, No [facility] (NON-DELIVERED) [facility] ASSIGNMENT OF BENEFITS 2022-07-06 04:55:57 Doctor Unassigned, No [facility] POCT URINALYSIS 2022-06-23 19:48:00 Antonette Solano [facility] POCT URINALYSIS 2022-06-09 18:04:00 Antonette Solano [facility] TDAP VACCINE, >11 YRS, 2022-05-26 15:59:[address] [facility] GLUCOSE 1 HOUR POST 2022-05-12 21:16:00 Tushar Lan [facility] CBC WITH DIFF 2022-05-12 21:16:00 Tushar Lan [facility] POCT URINALYSIS 2022-05-12 20:18:00 Antonette Solano [facility] POCT URINALYSIS 2022-04-28 17:24:00 Antonette Solano [facility] SECOND AND THIRD 2022-04-14 15:44:00 Antonette Solano [facility] TRIMESTER ULTRASOUND [facility] POCT URINALYSIS 2022-03-31 16:02:00 Antonette Solano [facility] POCT URINALYSIS 2022-03-10 00:00:00 Antonette Solano [facility] POCT URINALYSIS 2022-02-24 16:30:00 Antonette Solano [facility] POCT URINALYSIS 2022-02-10 00:00:00 Antonette Solano [facility] POCT URINALYSIS 2022-01-27 15:33:00 Antonette Solano [facility] REPORT OF 2021-12-23 05:01:00 Doctor Unassigned, No [facility] POCT TEST 2021-12-23 00:00:00 Antonette Solano [facility] POCT URINALYSIS W/O 2021-12-23 00:00:[address] [facility] US FIRST 2021-12-14 21:24:20 Sara Snyder [facility] TRIMESTER LESS THAN 14 Medical [facility] WEEKS WITH TRANSVAGINAL ASSIGNMENT OF BENEFITS 2021-12-14 19:54:43 Doctor Unassigned, No [facility] POCT TEST 2021-12-09 00:00:00 Sara Snyder [facility] POCT TEST 2021-10-12 18:22:00 Tushar Lan [facility] Encounters Start End Encounter Admission Attending Care Care Encounter Source Date/Time Date/Time Type Type Clinicians Facility Department ID 2022-07-24 Outpatient P KASEY BLANCO [facility] ELIAZAR [id number] Univers 07:39:17 KASEY BLANCO [facility] 2022-07-11 Outpatient X [facility] EL[facility] [id number] Univers 03:19:31 [facility] 2020-12-27 Emergency [facility] [id number] Univers 22:10:58 [facility] 2020-12-27 Emergency [facility] [id number] Univers 22:10:57 ity of [facility] 2020-12-27 Outpatient P [facility] EL[facility] [id number] Univers 19:19:43 ity of [facility] 2020-12-27 Outpatient P [facility] EL[facility] [id number] Univers 19:19:36 ity of [facility] 2022-12-08 2022-12-08 Outpatient R AKINSIPE, [facility] [id number] Univers 14:45:00 14:45:00 TUSHAR ity o f [facility] 2022-09-07 2022-09-07 Outpatient R AKINSIPE, [facility] [id number] Univers 15:15:00 16:22:49 TUSHAR ity o f [facility] 2022-08-29 2022-08-29 [facility] 1.2.840.114 [id number] Univers 00:00:00 00:00:00 Tushar C [employer] TE[employer] 350.1.13.10 ity of REGIONAL 4.2.7.2.686 Jamal as MATERNAL [id number] Med ical & CHILD [address] [place] [address] 2022-08-29 2022-08-29 Telephone [facility] 1.2.840.114 [id number] Univers 00:00:00 00:00:00 Tushar C [employer] TEACHER 350.1.13.10 ity of REGIONAL 4.2.7.2.686 Jamal as MATERNAL [id number] Med ical & CHILD [address] [place] [address] 2022-08-12 2022-08-12 Outpatient R AKINSIPE, [facility] [id number] Univers 10:00:00 11:16:38 TUSHAR ity o f [facility] 2022-08-12 2022-08-12 Routine Akinpe, [facility] 1.2.181.106 [id number] Univers 10:00:00 11:16:38 Tushar C [employer] TEACH[employer] 350.1.13.10 ity of Visit REGIONAL 4.2.7.2.686 Jamal as MATERNAL [id number] [facility] ical & CHILD [address] [place] [address] 2022-08-01 2022-08-01 Nurse Visit, Tk-chp Nurse [facility] 1.2 .840.114 [id number] Univers 09:30:00 10:21:06 Visit Mallymanny Tushar Lund [employer] TE[employer] 350.1.13. 10 ity of [facility] 4.2.7.2.686 Jamal as MATERNAL [id number] [facility] & [address] 2022-08-01 2022-08-01 Outpatient R RIKY [facility] [id number] Univers 09:30:00 09:30:00 TUSHAR ity o f [facility] 2022-08-01 2022-08-01 Patient Riky [facility] 1.2.125.278 [id number] Univers 00:00:00 00:00:00 Secure Msg Tushar C MOTOR TEACHER 350.1.13.10 ity [facility] 4.2.7.2.686 Jamal as MATERNAL [id number] [facility] & [address] 2022-08-01 2022-08-01 Patient Riky [facility] 1.2.480.422 [id number] Univers 00:00:00 00:00:00 Secure Msg Tushar C MOTOR TEACHER 350.1.13.10 ity of [facility] 4.2.7.2.686 Jamal as MATERNAL [id number] [address] 2022-07-28 2022-07-29 Outpatient P JR [facility] ELIAZAR [id number] Univers 20:06:00 12:45:00 HETAL rizo [facility] 2022-07-28 2022-07-29 [facility] 1.2 .840.114 [id number] Univers 20:06:00 12:45:00 Encounter Hetal Norris 350.1.13.10 ity [facility] 4.2.7.2.686 [facility] [id number] [address] 2022-07-27 2022-07-27 Nurse MOSHE [facility] 1.2.840.114 [id number] Univers 00:00:00 00:00:00 Triage Patt TEDDY 350.1.13.10 it y of [facility] 4.2.7.2.686 Jamal as [id number] [facility] 019 Branch 2022-07-26 2022-07-26 [facility] 1.2.840.114 [id number] Univers 00:00:00 00:00:00 Tushar Lund [employer] TE[employer] 350.1.13.10 ity [facility] 4.2.7.2.686 Jamal as MATERNAL [id number] [facility] ical & CHILD [address] [place] [address] 2022-07-24 2022-07-25 Outpatient P KASEY BLANCO [facility] G YN [id number] Univers 09:28:00 12:30:00 TONY BLANCOL ity [facility] 2022-07-24 2022-07-25 [facility] 1.2.840.114 1 [id number] Univers 09:28:00 12:30:00 Encounter sKasey 350.1.13.10 ity [facility] 4.2.7.2.686 [facility] [id number] [facility] 083 Branch 2022-07-21 2022-07-23 Inpatient X [facility] ELIAZAR [id number] Univers 10:37:00 13:45:00 HETAL itspenser of [facility] 2022-07-21 2022-07-23 [facility] 1.2.840.114 [id number] Univers 10:37:00 13:45:00 Encounter Hetal HELLER 350.1.13.10 ity of [place] 4.2.7.2.686 [facility] [id number] [facility] 083 Branch 2022-07-21 2022-07-21 Surgery [facility] 1.2.840.114 [id number] Univers 12:35:00 14:27:00 Hetal HELLER 350.1.13.10 ity of [place] 4.2.7.2.686 [facility] [id number] [facility] 013 Branch 2022-07-21 2022-07-21 Outpatient R [facility] [id number] Univers 10:45:00 10:45:00 TUSHAR ity o f [facility] 2022-07-19 2022-07-19 Case Ad, [facility] 1.2.840.114 [id number] Univers 00:00:00 00:00:00 Management Hetal Mario PINA 350.1.13.10 ity of [place].2.[place] [id number] Pa dical [address] 2022-07-17 2022-07-17 Outpatient X AD, [facility] ELIAZAR [id number] Univers 10:38:00 12:40:00 HETAL ity of [facility] 2022-07-17 2022-07-17 Emergency [facility] 1.2.199.043 [id number] Univers 10:38:00 12:40:00 Hetal Mario PINA 350.1.13.10 ity [facility] [place].2.7.2.686 [place] [id number] [address] 2022-07-10 2022-07-11 Outpatient X AUSTIN ARZOLA [facility] [id number] Univers 22:46:00 03:10:00 ity of [facility] 2022-07-10 2022-07-11 Emergency Austin Arzola [facility] 1.2.840.114 [id number] Univers 22:46:00 03:10:00 [facility] 350.1.13.10 i ty [facility] 4.2.7.2.[place] [id number] [address] 2022-07-11 2022-07-11 Telephone [facility] 1.2.840.114 [id number] Univers 00:00:00 00:00:00 Tushar Lund [employer] TE[employer] 350.1.13.10 ity of [facility] 4.2.7.2.686 Jamal as MATERNAL [id number] [facility] ical & CHILD [address] [place] [address] 2022-07-08 2022-07-08 Outpatient R AKINON LICENSE OF [facility], [facility] [id number] Univers 14:15:00 14:41:47 TUSHAR ity o f [facility] 2022-07-082022-07-08 Routine Akinsipe, [facility] 1.2.447.440 [id number] Univers 14:15:00 14:41:47 Tushar C MOTOR TEACHER 350.1.13.10 ity of Visit [facility] 4.2.7.2.686 Jamal as MATERNAL [id number] [facility] ical & CHILD [address] [place] [address] 2022-07-06 2022-07-06 Outpatient P ADUM, [facility] EL[facility] [id number] Univers 00:06:00 04:42:00 HETAL ity of [facility] 2022-07-06 2022-07-06 Emergency Adum, [facility] 1.2.574.053 [id number] Univers 00:06:00 04:42:00 [facility]etal [facility] 350.1.13.10 ity of [place] 4.2.7.2.686 [place] [facility] [id number] [facility] [address] [place] 2022-07-06 2022-07-06 Orders Doctor MESA 1.2.840.114 [id number] Univers 00:00:00 00:00:00 Only Unassigned, TEDDY 350.1.13.10 ity of [facility] 4.2.7.2.686 Jamal as [id number] [facility] [address] [place] 2022-07-05 2022-07-05 Orders Doctor MOSHE 1.2.840.114 [id number] Univers 00:00:00 00:00:00 Only Unassigned, TEDDY 350.1.13.10 ity of [facility] 4.2.7.2.686 Jamal as [id number] [address] 2022-06-23 2022-06-23 Outpatient R AKINSIPE, [facility] [id number] Univers 14:45:00 15:08:35 TUSHAR ity o f [facility] 2022-06-23 2022-06-23 Routine Akinsipe, [facility] 1.2.289.612 [id number] Univers 14:45:00 15:08:35 Tushar C MOTOR TEACHER 350.1.13.10 ity of Visit [facility] 4.2.7.2.686 Jamal as MATERNAL [id number] [facility] & CHILD [address] [place] [address] 2022-06-16 2022-06-16 Outpatient R AKINSIPE, [facility] [id number] Univers 13:00:00 13:00:00 TUSHAR ity o f [facility] 2022-06-09 2022-06-09 Outpatient R AKINSIPE, [facility] [id number] Univers 12:45:00 13:24:[address] [facility] 2022-06-09 2022-06-09 Routine Akinsipe, [facility] 1.2.812.931 [id number] Univers 12:45:00 13:24:30 Tushar C MOTOR TEACHER 350.1.13.10 ity of Visit REGIONAL 4.2.7.2.686 Jamal as MATERNAL [id number] [facility] & [address] 2022-06-02 2022-06-02 Nurse Visit, Neftali Nurse [facility] 1. .840.114 [id number] Univers 10:30:00 10:42:00 Visit Akinsipe, Tushar C MOTOR TEACHER 350.1.13. 10 ity of REGIONAL 4.2.7.2.686 Jamal as MATERNAL [id number] [facility] & [address] 2022-06-02 2022-06-02 Outpatient R AKINSIPE, [facility] [id number] Univers 10:30:00 10:30:00 TUSHAR ity o f [facility] 2022-05-26 2022-05-26 Outpatient R AKINSIPE, [facility] [id number] Univers 10:30:00 11:07:[address] [facility] 2022-05-26 2022-05-26 Routine Akinsipe, [facility] 1.2.363.295 [id number] Univers 10:30:00 11:07:20 Tushar C MOTOR TEACHER 350.1.13.10 ity of Visit REGIONAL 4.2.7.2.686 Jamal as MATERNAL [id number] [facility] & [address] 2022-05-19 2022-05-19 Nurse Visit, Satishp Nurse [facility] 1.2 .840.114 [id number] Univers 10:30:00 11:03:10 Visit Akinmanny Tushar C MOTOR TEACHER 350.1.13. 10 ity of REGIONAL 4.2.7.2.686 Jamal as MATERNAL [id number] [facility] & CHILD [address] [place] [address] 2022-05-19 2022-05-19 Outpatient R AKINSIPE, [facility] [id number] Univers 10:30:00 10:30:00 TUSHAR ity o f [facility] 2022-05-12 2022-05-12 Outpatient R AKINSIPE, [facility] [id number] Univers 14:45:00 15:46:52 TUSHAR ity o f [facility] 2022-05-12 2022-05-12 Routine Akinsipe, [facility] 1.2.236.105 [id number] Univers 14:45:00 15:46:52 Tushar C MOTOR TEACHER 350.1.13.10 ity of Visit REGIONAL 4.2.7.2.686 Jamal as MATERNAL [id number] [facility] & CHILD [address] [place] [address] 2022-05-05 2022-05-05 Nurse Visit, Neftali Nurse [facility] 1.2 .840.114 [id number] Univers 10:30:00 10:45:51 Visit AkinSteven bryantilola C MOTOR TEACHER 350.1.13. 10 ity of REGIONAL 4.2.7.2.686 Jamal as MATERNAL [id number] [facility] & CHILD [address] [place] [address] 2022-05-05 2022-05-05 Outpatient R AKINSIPE, [facility] [id number] Univers 10:30:00 10:30:[address] [facility] 2022-04-28 2022-04-28 Outpatient R AKINSIPE, [facility] [id number] Univers 11:00:00 11:44:12 TUSHAR ity o f [facility] 2022-04-28 2022-04-28 Routine Akinsipe, [facility] 1.2.356.076 [id number] Univers 11:00:00 11:44:12 Tushar C MOTOR TEACHER 350.1.13.10 ity of Visit REGIONAL 4.2.7.2.686 Jamal as MATERNAL [id number] [facility] & CHILD [address] [place] [address] 2022-04-21 2022-04-21 [facility] 1.2 .840.114 [id number] [facility] 10:00:00 10:30:36 Visit Antonette Solano MOTOR TEACHER 350.1.13.1 0 ity of REGIONAL 4.2.7.2.686 Jamal as MATERNAL [id number] [facility] & CHILD [address] [place] [address] 2022-04-21 2022-04-21 Outpatient R ENE [facility] [id number] Univers 10:00:00 10:00:00 ANTONETTE [facility] 2022-04-14 2022-04-14 Outpatient R ASYA [facility] [id number] Univers 09:15:00 11:39:36 SHEREEN [facility] 2022-04-14 2022-04-14 Routine Risk, Ojk-Yugwt-Px/High [facility] 1. 2.840.114 [id number] Univers 09:15:00 11:39:36 Shereen Travis MOTOR TEACHER 350.1.13.10 ity of Visit REGIONAL 4.2.7.2.686 Jamal as MATERNAL [id number] [facility] & [address] 2022-04-14 2022-04-14 [facility] 1.2 .840.114 [id number] [facility] 10:30:00 10:45:00 Visit Tushar Lan C [employer]OR TEACHER 350.1.13. 10 ity of REGIONAL 4.2.7.2.686 Jamal as MATERNAL [id number] [facility] & CHILD [address] [place] [address] 2022-04-14 2022-04-14 Ripening Room Hand Ultrasound, West[place] [facility] 1.2 .840.114 [id number] Univers 09:30:00 10:39:28 Visit Shereen Travis MOTOR TEACHER 350.1.13.10 ity of REGIONAL 4.2.7.2.686 Jamal as MATERNAL [id number] Med ical & CHILD [address] [facility] 2022-04-14 2022-04-14 Outpatient R RIKY [facility] [id number] Univers 10:30:00 10:30:00 TUSHAR katz xin [facility] 2022-04-14 2022-04-14 Case Ene [facility] 1.2.840.114 [id number] Univers 00:00:00 00:00:00 Management Antonette Millard MOTOR TEACHER 350.1.13.10 ity of REGIONAL 4.2.7.2.686 Jamal as MATERNAL [id number] Med ical & CHILD [address] [place] [address] 2022-04-07 2022-04-07 Nurse Visit, Neftali Nurse [facility] [id number] .840.114 [id number] Univers 13:00:00 13:13:39 Visit Tushar Lan [employer] [id number]. 10 ity of REGIONAL [id number] Jamal as MATERNAL [id number] Med ical & CHILD [address] [place] [address] 2022-04-07 2022-04-07 Outpatient R RIKY [facility] [id number] Univers 13:00:00 13:00:00 TUSAHR katz xin [facility] 2022-04-07 2022-04-07 Telephone Riky [facility] 1.2.840.114 [id number] Univers 00:00:00 00:00:00 Tushar Lund [employer]OR TEACHER 350.1.13.10 ity of REGIONAL 4.2.7.2.686 Jamal as MATERNAL [phone] [facility] ical & CHILD [address] [place] [address] 2022-03-31 2022-03-31 Routine Risk, Cpp-Mvbzs-Ml/High [facility] 1. 2.840.114 [id number] Univers 09:45:00 10:58:49 Edwin Cage MOTOR TEACHER 350.1.13.10 ity of Visit [facility] 4.2.7.2.686 Jamal as MATERNAL [phone] Med ical & CHILD [address] [place], [place] [address]TON 2022-03-31 2022-03-31 Outpatient R SHANKAR [facility] [id number] Univers 09:45:00 10:58:49 EDWIN [facility] 2022-03-24 2022-03-24 Nurse Visit, Neftali Nurse [facility] 1.2 .840.114 [id number] Univers 10:00:00 10:00:00 Visit Tushar Lan [employer]OR TEACHER 350.1.13. 10 ity of REGIONAL 4.2.7.2.686 Jamal as MATERNAL [phone] [facility] & [address] 2022-03-24 2022-03-24 Outpatient R RIKY [facility] [id number] Univers 10:00:00 09:55:01 TUSHAR rizo o f [facility] 2022-03-15 2022-03-15 Telephone Riky [facility] 1.2.840.114 [id number] Univers 00:00:00 00:00:00 Tushar Lund MOTOR TEACHER 350.1.13.10 ity of REGIONAL 4.2.7.2.686 Jamal as MATERNAL [id number] [address] 2022-03-10 2022-03-10 Outpatient R SHANKAR [facility] [id number] Univers 11:00:00 11:45:31 EDWIN [facility] 2022-03-10 2022-03-10 Routine Risk, Ley-Dqgqx-Gd/High [facility] 1. 2.840.114 [id number] Univers 11:00:00 11:45:31 Edwin Cage MOTOR TEACHER 350.1.13.10 ity of Visit REGIONAL 4.2.7.2.686 Jamal as MATERNAL [id number] [address] 2022-03-10 2022-03-10 Outpatient R [facility] [id number] Univers 10:30:00 10:30:00 ity [facility] 2022-03-07 2022-03-07 Telephone Riky [facility] 1.2.840.114 [id number] Univers 00:00:00 00:00:00 Tushar Lund MOTOR TEACHER 350.1.13.10 ity of REGIONAL 4.2.7.2.686 Jamal as MATERNAL [id number] [facility] ical & CHILD [address] [place] [address] 2022-03-07 2022-03-07 [facility] 1.2.840.114 [id number] Univers 00:00:00 00:00:00 Management Edwin Blas MOTOR TEACHER 350.1.13.10 ity of REGIONAL 4.2.7.2.686 Jamal as MATERNAL [id number] [facility] & CHILD [address] [place] [address] 2022-02-24 2022-02-24 Outpatient [facility] [id number] Univers 10:00:00 11:04:18 EDWIN [facility] 2022-02-24 2022-02-24 Routine Risk, Daz-Oyrah-Tu/High [facility] 1. 2.840.114 [id number] Univers 10:00:00 11:04:18 Edwin Cage MOTOR TEACHER 350.1.13.10 ity of Visit REGIONAL 4.2.7.2.686 Jamal as MATERNAL [id number] [facility] & CHILD [address] [place] [address] 2022-02-10 2022-02-10 Outpatient Angelica CAGE [facility] [id number] Univers 13:15:00 13:59:26 EDWIN [facility] 2022-02-10 2022-02-10 Routine Risk, Raq-Goqcj-Lq/High [facility] 1. 2.840.114 [id number] Univers 13:15:00 13:59:26 Edwin Cage MOTOR TEACHER 350.1.13.10 ity of Visit REGIONAL 4.2.7.2.686 Jamal as MATERNAL [id number] [facility] & CHILD [address] [place] [address] 2022-01-27 2022-01-27 Outpatient [facility] [id number] Univers 09:00:00 10:00:53 [facility] 2022-01-27 2022-01-27 Routine Risk, Wxe-Ttofs-Fe/High [facility] 1. 2.840.114 [id number] Univers 09:00:00 10:00:53 CageEdwin MOTOR TEACHER 350.1.13.10 ity of Visit [facility] 4.2.7.2.686 Jamal as MATERNAL [id number] [facility] ical & CHILD [address] [place] [address] 2022-01-10 2022-01-10 Case Ene [facility] 1.2.840.114 [id number] Univers 00:00:00 00:00:00 Management Antonette Millard MOTOR TEACHER 350.1.13.10 ity of [facility] 4.2.7.2.686 Jamal as MATERNAL [id number] [facility] ical & CHILD [address] [place] [address] 2022-01-06 2022-01-06 Ripening Room [facility] 1.2 .840.114 [id number] Univers 15:15:00 15:45:00 Visit David Cooper MOTOR TEACHER 350.1.13.10 ity of [facility] 4.2.7.2.686 Jamal as MATERNAL [id number] Med ical & CHILD [facility] 2022-01-06 2022-01-06 Outpatient P BALBIR [facility] [id number] Univers 15:15:00 15:15:00 DAVID [facility] 2021-12-30 2021-12-30 Outpatient R SARA SNYDER [facility] B [id number] Univers 10:00:00 10:00:00 SARA SNYDER [facility] 2021-12-23 2021-12-23 Outpatient R ENE [facility] [id number] Univers 09:15:00 10:41:00 ANTONETTE [facility] 2021-12-23 2021-12-23 Initial Provider, Neftali [facility] 1 .2.840.114 [id number] Univers 09:15:00 10:41:00 Niki Ralph MOTOR TEACHER 350.1.13.1 0 ity of Visit Antonette Solano [facility] 4.2.7.2.686 [place] MATERNAL [id number] [facility] ical & CHILD [facility] 2021-12-23 2021-12-23 Orders Doctor MOSHE 1.2.840.114 [id number] Univers 00:00:00 00:00:00 Only Unassigned, TEDDY 350.1.13.10 ity of [place] [facility] 4.2.7.2.686 Jamal as [id number] [facility] [address] [place] 2021-12-17 2021-12-17 Case [facility] 1.2.840.114 [id number] Univers 00:00:00 00:00:00 Management Sara MENDOZA 350.1.13.10 ity of WOMEN'S 4.2.7.2.[address] [facility] [phone] [facility] [address] [place] 2021-12-14 2021-12-14 Outpatient R SARA SNYDER [facility] B [id number] Univers 14:55:04 23:59:00 SARA SNYDER [facility] 2021-12-14 2021-12-14 [facility] 1.2.840.114 [id number] Univers 14:55:04 23:59:00 Encounter [facility] 350.1.13.10 ity of [place] 4.2.7.2.686 [facility] [phone] [facility] [address] [place] 2021-12-14 2021-12-14 Orders Doctor MOSHE 1.2.840.114 [id number] Univers 00:00:00 00:00:00 Only Unassigned, TEDDY 350.1.13.10 ity of [place] [facility] 4.2.7.2.686 Jamal as [id number] [facility] [address] [place] 2021-12-09 2021-12-09 Outpatient R SARA SNYDER [facility] B [id number] Univers 09:00:00 09:43:20 SARA SNYDER [facility] 2021-12-09 2021-12-09 Initial [facility] 1.2.840.114 [id number] Univers 09:00:00 09:43:20 Sara DONALDSON 350.1.13.10 i ty of Visit WOMEN'S 4.2.7.2.686 [place] [facility] [id number] [address] 2021-10-12 2021-10-12 Office Riky, [facility] 1.2.993.348 [id number] Univers 13:00:00 13:34:47 Visit Tushar C MOTOR TEACHER 350.1.13.10 ity of [facility] 4.2.7.2.686 Jamal as MATERNAL [id number] [facility] ical & CHILD [address] [place] [address] 2021-10-12 2021-10-12 Outpatient R AKINSIPE, [facility] [id number] Univers 13:00:00 13:34:[address] [facility] 2021-10-12 2021-10-12 Outpatient R AKINON LICENSE OF [facility], [facility] [id number] Univers 13:00:00 13:00:[address] [facility] 2021-10-12 2021-10-12 Outpatient R AKINSIPE, [facility] [id number] Univers 13:00:00 13:00:00 TUSHAR rizo [facility] 2021-10-12 2021-10-12 Orders Doctor MOSHE 1.2.840.114 [id number] Univers 00:00:00 00:00:00 Only Unassigned, TEDDY 350.1.13.10 ity of [place] [facility] 4.2.7.2.686 Jamal as [id number] [address] 2021-09-28 2021-09-28 Outpatient R AKINSIPE, [facility] [id number] Univers 12:45:00 14:31:[address] [facility] 2021-09-28 2021-09-28 [facility] 1.2.603.331 [id number] Univers 12:45:00 14:31:13 Visit Tushar C MOTOR TEACHER 350.1.13.10 ity of [facility] 4.2.7.2.686 Jamal as MATERNAL [id number] [facility] ical & CHILD [address] [place] [address] 2021-08-05 2021-08-05 Outpatient R JAM SAUNDERS [facility] [id number] Univers 16:15:00 16:15:00 ity [facility] 2021-06-18 2021-06-18 Outpatient R THERON [facility] [id number] Univers 11:00:00 11:00:00 [place] itspenser [facility] 2021-06-15 2021-06-15 Orders Doctor MOSHE 1.2.840.114 [id number] Univers 00:00:00 00:00:00 Only Unassigned, TEDDY 350.1.13.10 ity of [place] [facility] 4.2.7.2.686 Jamal as [id number] [facility] [address] [place] 2021-06-15 2021-06-15 Patient Doctor MOSHE 1.2.840.114 [id number] Univers 00:00:00 00:00:00 Secure Msg Unassigned, TEDDY 350.1.13.10 ity of [place] [facility] 4.2.7.2.686 Jamal as [id number] [facility] [address] [place] 2021-03-09 2021-03-09 Outpatient R RIKY [facility] [id number] Univers 14:00:00 14:00:00 TUSHAR rizo o f [facility] 2021-03-02 2021-03-02 Telephone [facility] 1.2.840.114 [id number] Univers 00:00:00 00:00:00 Tushar Lund MOTOR TEACHER 350.1.13.10 ity of [facility] 4.2.7.2.686 Jamal as MATERNAL [id number] Med ical & CHILD [address] [place] [address] 2021-02-12 2021-02-12 [facility] 1.2.853.858 [id number] Univers 00:00:00 00:00:00 Ernesto Rosario MOTOR TEACHER 350.1.13.10 it y of [facility] 4.2.7.2.686 Jamal as MATERNAL [id number] [facility] ical & CHILD [address] [place] [address] 2021-02-11 2021-02-11 Ref[facility] 1.2.578.045 [id number] Univers 00:00:00 00:00:00 Tushar C MOTOR TEACHER 350.1.13.10 ity of [facility] 4.2.7.2.686 Jamal as MATERNAL [id number] [facility] & CHILD [address] [place] [address] 2021-01-27 2021-01-27 [facility] 1.2.189.268 [id number] Univers 00:00:00 00:00:00 Ernesto N MOTOR TEACHER 350.1.13.10 it y of [facility] 4.2.7.2.686 Jamal as MATERNAL [id number] [facility] & CHILD [address] [place] [address] 2021-01-18 2021-01-18 Outpatient [facility] [id number] Univers 16:00:00 16:18:34 ERNESTO rizo [facility] 2021-01-18 2021-01-18 Office [facility] 1.2.044.696 [id number] Univers 15:59:18 16:18:34 Visit Ernesto Rosario MOTOR TEACHER 350.1.13.10 it y of [facility] 4..7.2.686 Jamal as MATERNAL [id number] [address] 2021-01-18 2021-01-18 Outpatient Angel[facility] [id number] Univers 16:00:00 16:00:00 ERNESTO rizo [facility] 2021-01-15 2021-01-15 Outpatient [facility] [id number] Univers 13:15:00 13:15:00 ERNESTO rizo [facility] 2020-12-11 2020-12-11 Telephone [facility] 1.2.840.114 [id number] Univers 00:00:00 00:00:00 Tushar C MOTOR TEACHER 350.1.13.10 ity of [facility] 4..7.2.686 Jamal as MATERNAL [id number] [address] 2020-10-20 2020-10-20 Office [facility] 1.2.840.114 [id number] Univers 13:30:06 14:12:47 Visit Niki Dominguez MOTOR TEACHER 350.1.13.10 ity of REGIONAL 4.2.7.2.686 Jamal as MATERNAL [id number] [facility] & [address] 2020-10-20 2020-10-20 Outpatient R RAMO [facility] [id number] Univers 13:30:00 13:30:00 NIKI riosy o f [facility] 2020-10-14 2020-10-14 Outpatient R RIKY [facility] [id number] Univers 15:00:00 15:00:[address] [facility] 2020-10-12 2020-10-12 Office [facility] 1.2.803.185 [id number] Univers 14:17:44 15:03:31 Visit Tushar Lund MOTOR TEACHER 350.1.13.10 ity of REGIONAL 4.2.7.2.686 Jamal as MATERNAL [id number] [address] 2020-10-12 2020-10-12 Outpatient R RIKY [facility] [id number] Univers 14:30:00 14:30:[address] [facility] 2020-09-28 2020-09-28 Outpatient R RIKY [facility] [id number] Univers 08:30:00 08:30:00 TUSHAR riosy o f [facility] 2020-09-28 2020-09-28 Telephone [facility] 1.2.840.114 [id number] Univers 00:00:00 00:00:00 Ernesto Rosario MOTOR TEACHER 350.1.13.10 it y of REGIONAL 4.2.7.2.686 Jamal as MATERNAL [id number] [address] 2020-09-25 2020-09-25 Telephone [facility] 1.2.840.114 [id number] Univers 00:00:00 00:00:00 Tushar Lund MOTOR TEACHER 350.1.13.10 ity of REGIONAL 4.2.7.2.686 Jamal as MATERNAL [id number] [facility] & CHILD [address] [place] [address] 2020-09-24 2020-09-24 Office [facility] 1.2.881.292 [id number] Univers 14:14:05 14:29:05 Visit Tushar Lund MOTOR TEACHER 350.1.13.10 ity of REGIONAL 4.2.7.2.686 Jamal as MATERNAL [id number] [facility] & [address] 2020-09-24 2020-09-24 Outpatient R RIKY [facility] [id number] Univers 14:15:00 14:15:00 TUSHAR katz f [facility] 2020-09-08 2020-09-08 Outpatient Angelica PEACOCK [facility] [id number] Univers 16:00:00 16:00:00 [facility] 2020-08-18 2020-08-18 Routine [facility] 1.2.209.117 [id number] Univers 13:04:51 13:45:53 Tushar Lund MOTOR TEACHER 350.1.13.10 ity of Visit REGIONAL 4.2.7.2.686 Jamal as MATERNAL [id number] [address] 2020-08-18 2020-08-18 Outpatient R RIKY [facility] [id number] Univers 13:15:00 13:15:[address] [facility] 2020-08-06 2020-08-06 Outpatient Angelica PEACOCK [facility] [id number] Univers 11:00:00 11:00:00 ERNESTO [facility] 2020-08-06 2020-08-06 Nurse Visit, Ang-Rmchp Nurse [facility] 1.2 .840.114 [id number] Univers 08:21:04 09:08:19 Visit Tushar Lan MOTOR TEACHER 350.1.13. 10 ity of REGIONAL 4.2.7.2.686 Jamal as MATERNAL [id number] [facility] & [address] 2020-08-06 2020-08-06 Outpatient R RIKY [facility] [id number] Univers 09:00:00 09:00:[address] [facility] 2020-08-04 2020-08-04 Telephone [facility] 1.2.840.114 [id number] Univers 00:00:00 00:00:00 Ernesto Rosario MOTOR TEACHER 350.1.13.10 it y of [facility] 4.2.7.2.686 Jamal as MATERNAL [id number] Med ical & CHILD 107 [facility] 2020-08-01 2020-08-01 1.2.840.1 1.2.840.114 [id number] Univers 00:00:00 00:00:00 Encounter 14165.1.1 350.1.13.10 ity of 3.104.2.7 [place].2.696 [place] .[id number] 570 [facility] 2020-07-26 2020-07-28 [facility] Rosio Breen [facility] 1.2.840.11 [id number] Univers 14:30:00 17:45:00 Encounter Austin Arzola 350.1.13.10 ity of [place] 4.2.7.2.686 [facility] [id number] [address] 2020-07-27 2020-07-27 Anesthesia [facility] 1.2.840.114 [id number] Univers 10:49:00 16:19:00 Event Dylan Heller 350.1.13.10 ity of [place] 4.2.7.2.686 [facility] [id number] [address] 2020-07-26 2020-07-26 Anesthesia [facility]UN[facility] 1.2.840.114 [id number] Univers 19:50:09 19:50:09 Event Angelica Heller 350.1.13.10 i ty of [place] 4.2.7.2.686 [facility] [id number] [address] 2020-07-21 2020-07-21 Routine [facility]UN[facility] 1.2.477.712 [id number] Univers 12:46:13 13:17:55 Ernesto Rosario MOTOR TEACHER 350.1.13.10 i ty of [facility] 4.2.7.2.686 Jamal as MATERNAL [id number] [facility] & CHILD [address] [place] [address] 2020-07-21 2020-07-21 Outpatient R MADONNA [facility] [id number] Univers 12:45:00 12:45:00 ERNESTOSHARMILA rizo [facility] 2020-07-12 2020-07-12 Hospital [facility] 1.2.840.114 [id number] Univers 02:00:00 03:20:00 Encounter Hetal Heller 350.1.13.10 ity [facility] 4.2.7.2.686 [place] [facility] [id number] [address] 2020-07-07 2020-07-07 Routine [facility]UN[facility] 1.2.394.600 [id number] Univers 10:39:36 11:15:55 Ernesto Rosario MOTOR TEACHER 350.1.13.10 i ty of Visit [facility] 4.2.7.2.686 Jamal as MATERNAL [id number] [facility] & CHILD [address] [place] [address] 2020-07-07 2020-07-07 Outpatient R MADONNA [facility] [id number] Univers 10:45:00 10:45:00 ERNESTOSHARMILA rizo [facility] 2020-06-26 2020-06-26 Telephone [facility] 1.2.840.114 [id number] Univers 00:00:00 00:00:00 Tushar Lund MOTOR TEACHER 350.1.13.10 ity of [facility] 4.2.7.2.686 Jamal as MATERNAL [id number] [facility] & CHILD [address] [place] [address] 2020-06-26 2020-06-26 Patient Madonna NCSOLE 1.2.806.070 [id number] Univers 00:00:00 00:00:00 Secure Msg Ernesto Rosario MOTOR TEACHER 350.1.13.10 ity of [facility] 4.2.7.2.686 Jamal as MATERNAL [id number] [facility] & CHILD [address] [place] [address] 2020-06-23 2020-06-23 Routine [facility]UN[facility] 1.2.940.041 [id number] Univers 14:10:30 14:38:56 Ernesto Rosario MOTOR TEACHER 350.1.13.10 i ty of Visit REGIONAL 4.2.7.2.686 Jamal as MATERNAL [id number] [facility] & CHILD [address] [place] [address] 2020-06-23 2020-06-23 Outpatient R MADONNA [facility] [id number] Univers 14:15:00 14:15:00 ERNESTOSHARMILA rizo [facility] 2020-06-11 2020-06-11 Orders Doctor MOSHE 1.2.840.114 [id number] Univers 00:00:00 00:00:00 Only Unassigned, TEDDY 350.1.13.10 ity of [place] [facility] 4.2.7.2.686 Jamal as [id number] [address] 2020-06-09 2020-06-09 Routine Niki Ralph [facility] 1.2.840 .114 [id number] Univers 14:16:51 14:55:17 Ernesto Peacock MOTOR TEACHER 350.1.13.10 ity of Visit REGIONAL 4.2.7.2.686 Jamal as MATERNAL [id number] [facility] & CHILD [address] [place] [address] 2020-06-09 2020-06-09 Outpatient R MADONNA [facility] [id number] Univers 14:15:00 14:15:00 ERNESTOSHARMILA rizo [facility] 2020-06-02 2020-06-02 Orders Doctor MESA 1.2.840.114 [id number] Univers 00:00:00 00:00:00 Only Unassigned, TEDDY 350.1.13.10 ity of [place] [facility] 4.2.7.2.686 Jamal as [id number] [address] 2020-06-01 2020-06-01 Arcadio Lan [facility] 1.2.348.345 [id number] Univers 00:00:00 00:00:00 Tushar Lund MOTOR TEACHER 350.1.13.10 ity of REGIONAL 4.2.7.2.686 Jamal as MATERNAL [id number] [facility] & CHILD [address] [place] [address] 2020-05-21 2020-05-21 Ripening Room Hand Lab, [facility] 1.2.840. 114 [id number] Univers 12:58:26 13:13:26 Visit Tushar Lan MOTOR TEACHER 350.1.13. 10 ity of REGIONAL 4.2.7.2.686 Jamal as MATERNAL [id number] [address] 2020-05-21 2020-05-21 Outpatient R RIKY [facility] [id number] Univers 13:00:00 13:00:00 TUSHAR rizo o f [facility] 2020-05-19 2020-05-19 Routine [facility]UN[facility] 1.2.528.785 [id number] Univers 12:45:26 13:11:32 Ernesto N MOTOR TEACHER 350.1.13.10 i ty of Visit [facility] 4.2.7.2.686 Jamal as MATERNAL [id number] [address] 2020-05-19 2020-05-19 Outpatient Angelica PEACOCK [facility] [id number] Univers 12:45:00 12:45:00 [facility] 2020-05-19 2020-05-19 Patient Tim [facility] 1.2.840.114 [id number] Univers 00:00:00 00:00:00 Outreach Jeffery MACDONALD 350.1.13.10 i ty of [facility] 4.2.7.2.686 [place] LIZETTCHANTELLE [id number] [address] 2020-04-23 2020-04-23 Routine [facility]UN[facility] 1.2.487.906 [id number] Univers 15:54:18 16:11:16 Ernesto N MOTOR TEACHER 350.1.13.10 i ty of Visit [facility] 4.2.7.2.686 Jamal as MATERNAL [id number] [address] 2020-04-23 2020-04-23 Outpatient Angelica PEACOCK [facility] [id number] Univers 16:00:00 16:00:00 ERNESTO [facility] 2020-04-14 2020-04-14 Outpatient [facility] [id number] Univers 12:45:00 12:45:00 ERNESTO rizo [facility] 2020-04-09 2020-04-09 Ripening Room Hand Ultrasound, Leonardo [facility] 1.2 .840.114 [id number] Univers 13:55:54 14:54:41 Visit Ron Charltonta MOTOR TEACHER 350.1.13.10 ity of [facility] 4.2.7.2.686 Jamal as MATERNAL [id number] [facility] ical & CHILD [address] [facility] 2020-04-09 2020-04-09 Outpatient P [facility] [id number] Univers 14:00:00 14:00:00 ity [facility] 2020-04-07 2020-04-07 Telephone [facility] 1.2.840.114 [id number] Univers 00:00:00 00:00:00 Ernesto Rosario MOTOR TEACHER 350.1.13.10 it y of [facility] 4.2.7.2.686 Jamal as MATERNAL [phone] [facility] & CHILD [address] [place] [address] 2020-03-26 2020-03-26 Orders Doctor MOSHE 1.2.840.114 [id number] Univers 00:00:00 00:00:00 Only Unassigned, TEDDY 350.1.13.10 ity of [place] [facility] 4.2.7.2.686 Jamal as [phone] [address] 2020-03-17 2020-03-17 Routine Madonna [facility] 1.2.050.683 [id number] Univers 12:49:30 13:34:04 Ernesto Rosario MOTOR TEACHER 350.1.13.10 i ty of Visit [facility] 4.2.7.2.686 Jamal as MATERNAL [phone] [facility] & CHILD [address] [place] [address] 2020-03-17 2020-03-17 Outpatient R MADONNA [facility] [id number] Univers 13:00:00 13:00:00 ERNESTO darrius [facility] 2020-02-25 2020-02-25 Telephone Madonna [facility] 1.2.840.114 [id number] Univers 00:00:00 00:00:00 Ernesto Rosario [employer]OR TEACHER 350.1.13.10 it y of [place] [id number] Jamal as MATERNAL [phone] Med ical & CHILD 107 [facility] 2020-02-18 2020-02-18 Outpatient R MADONNA [facility] [id number] Univers 14:45:00 14:45:00 ERNESTOSHARMILA rizo [facility] 2020-02-18 2020-02-18 [facility] 1.2.495.241 [id number] Univers 14:09:04 14:39:35 Ernesto N [employer] TE[employer] 350.1.13.10 i ty of Visit [address]7.2[address]686 Jamal as MATERNAL [phone] Med ical & CHILD [address] [place] [address] 2020-02-03 2020-02-03 [facility]phone [facility] 1.2.840.114 [id number] Univers 00:00:00 00:00:00 Tushar Lund [employer] TE[employer]ER 350.1.13.10 ity of [place] [address]..2.686 Jamal as MATERNAL [phone] Med ical & CHILD [address] [place] [address] 2020-02-03 2020-02-03 Refill Doctor [facility] 1.2.840.114 [id number] Univers 00:00:00 00:00:00 Unassigned, MOTOR TEACHER 350.1.13.10 ity of [place] [id number] Jamal as MATERNAL [phone] Med ical & CHILD [address] [place] [address] 2020-01-21 2020-01-21 [facility] 1.2.423.660 [id number] Univers 15:20:02 16:02:58 Ernesto N [employer] TEACHER 350.1.13.10 i ty of Visit [place] [id number] Jamal as MATERNAL [phone] Med ical & CHILD [address] [place] [address] 2020-01-21 2020-01-21 Outpatient R MADONNA [facility] [id number] Univers 15:30:00 15:30:00 ERNESTO blancaspenser [facility] 2020-01-18 2020-01-18 Refill Doctor [facility] 1.2.840.114 [id number] Univers 00:00:00 00:00:00 Unassigned, MOTOR TEACHER 350.1.13.10 ity of [place] REGIONAL 4.2.7.2.686 Jamal as MATERNAL [id number] Med ical & CHILD 107 [facility] 2020-01-09 2020-01-09 Ripening Room Hand Ultrasound, Leonardo [facility] 1.2 .840.114 [id number] Univers 14:52:31 15:17:04 Visit Shereen Travis MOTOR TEACHER 350.1.13.10 ity of REGIONAL 4.2.7.2.686 Jamal as MATERNAL [phone] Med ical & CHILD 369 [facility] 2020-01-09 2020-01-09 Outpatient P [facility] [id number] Univers 14:45:00 14:45:00 ity [facility] 2020-01-09 2020-01-09 [facility] 1.2.840.114 [id number] Univers 00:00:00 00:00:00 Ernesto Rosario MOTOR TEACHER 350.1.13.10 it y of REGIONAL 4.2.7.2.686 Jamal as MATERNAL [id number] Med ical & CHILD [address] [place] [address] 2019-12-27 2019-12-27 Telephone Riky [facility] 1.2.840.114 [id number] Univers 00:00:00 00:00:00 Tushar Lund MOTOR TEACHER 350.1.13.10 ity of [facility] 4.2.7.2.686 Jamal as MATERNAL [phone] Med ical & CHILD [address] [place] [address] 2019-12-26 2019-12-26 Initial [facility] 1.2.453.027 [id number] Univers 13:39:00 15:06:17 Ernesto Rosario MOTOR TEACHER 350.1.13.10 i ty of Visit REGIONAL 4.2.7.2.686 Jamal as MATERNAL [id number] Med ical & CHILD [address] [place] [address] 2019-12-26 2019-12-26 [facility] [id number] Univers 13:45:00 13:45:00 ERNESTO rizo [facility] 2019-12-26 2019-12-26 Orders Doctor MESA 1.2.840.114 [id number] Univers 00:00:00 00:00:00 Only Unassigned, TEDDY 350.1.13.10 ity of [place] [facility] 4.2.7.2.686 Jamal as [phone] [address] 2019-12-09 2019-12-09 Outpatient R RIKY [facility] [id number] [facility] 13:15:00 13:15:00 TUSHAR rizo o f [facility] 2019-10-28 2019-10-28 [facility] 1.2.840.114 [id number] 00:00:00 00:00:00 Tushar C MOTOR TEACHER 350.1.13.10 REGIONAL 4.2.7.2.686 MATERNAL [phone] & CHILD [address] [place] [address] 2019-10-28 2019-10-28 [facility]phone [facility] 1.2.840.114 [id number] [facility] 00:00:00 00:00:00 Tushar C MOTOR TEACHER 350.1.13.10 ity of [facility] 4.2.7.2.686 Jamal as MATERNAL [id number] [facility] ical & CHILD [address] [place] [address] 2019-10-09 2019-10-09 Office [facility] 1.2.111.171 [id number] [facility] 08:16:20 08:48:41 Visit Tushar C MOTOR TEACHER 350.1.13.10 ity of [facility] 4.2.7.2.686 Jamal as MATERNAL [id number] [facility] & CHILD [address] [place] [address] 2019-10-09 2019-10-09 Office [facility] 1.2.658.625 [id number] 08:16:20 08:48:41 Visit Tushar C MOTOR TEACHER 350.1.13.10 REGIONAL 4.2.7.2.686 MATERNAL [id number] & CHILD [address] [place] [address] 2019-10-09 2019-10-09 Outpatient R RIKY [facility] [id number] [facility] 08:15:00 08:15:00 TUSHAR rizo o f [facility] 2019-10-07 2019-10-07 Outpatient R RIKY [facility] [id number] Univers 10:30:00 10:30:00 TUSHAR lauren [facility] 2019-09-27 2019-09-27 Telephone [facility] 1.2.840.114 [id number] Univers 00:00:00 00:00:00 Tushar C MOTOR TEACHER 350.1.13.10 ity of REGIONAL 4.2.7.2.686 Jamal as MATERNAL [phone] Med ical & CHILD 107 [facility] 2019-09-25 2019-09-25 Refill [facility] 1.2.990.741 [id number] Univers 00:00:00 00:00:00 Tushar C MOTOR TEACHER 350.1.13.10 ity of REGIONAL 4.2.7.2.686 Jamal as MATERNAL [id number] Med ical & CHILD 107 [facility] 2019-08-19 2019-08-19 Telephone [facility] 1.2.840.114 [id number] Univers 00:00:00 00:00:00 Tushar C MOTOR TEACHER 350.1.13.10 ity of REGIONAL 4.2.7.2.686 Jamal as MATERNAL [phone] Med ical & CHILD 107 [facility] 2019-08-16 2019-08-16 Case Joselyn [facility] 1.2.389.863 [id number] Univers 00:00:00 00:00:00 Management Selam MOTOR TEACHER 350.1.13.10 ity of [facility] 4.2.7.2.686 Jamal as MATERNAL [phone] Med ical & CHILD 111 [facility] 2019-08-15 2019-08-15 Office Provider, Ang-Rmchp [facility] 1 .2.840.114 [id number] Univers 10:43:37 11:14:30 Visit Selam Alves MOTOR TEACHER 350.1.13.10 ity of REGIONAL 4.2.7.2.686 Jamal as MATERNAL [id number] Med ical & CHILD 107 [facility] 2019-08-15 2019-08-15 Outpatient R JOSELYN NCSOLE [facility] [id number] Univers 10:45:00 10:45:00 SELAM lauren [facility] 2019-07-23 2019-07-23 Telephone [facility], [facility] 1.2.840.114 [id number] Univers 00:00:00 00:00:00 uTshar Lund MOTOR TEACHER 350.1.13.10 ity of REGIONAL 4.2.7.2.686 Jamal as MATERNAL [id number] [facility] & CHILD [address] [place] [address] 2019-07-19 2019-07-19 Orders Doctor MOSHE 1..840.114 [id number] Univers 00:00:00 00:00:00 Only Unassigned, TEDDY 350.1.13.10 ity of [place] [facility] 4.2.7.2.686 Jamal as [id number] [address] 2019-07-08 2019-07-08 Telemedici [facility] 1.2.840.114 [id number] Univers 07:39:54 09:35:12 ne Visit Tushar Lund MOTOR TEACHER 350.1.13.10 ity of [facility] 4.2.7.2.686 Jamal as MATERNAL [id number] [facility] & CHILD [address] [place] [address] 2019-07-08 2019-07-08 Outpatient R RIKY [facility] [id number] Univers 09:30:00 09:30:00 TUSHAR lauren [facility] 2019-07-05 2019-07-05 Telephone [facility], [facility] 1.2.840.114 [id number] Univers 00:00:00 00:00:00 Tushar Lund MOTOR TEACHER 350.1.13.10 ity of REGIONAL 4.2.7.2.686 Jamal as MATERNAL [id number] [facility] & CHILD [address] [place] [address] 2019-04-29 2019-04-29 Telephone [facility], [facility] 1.2.840.114 [id number] Univers 00:00:00 00:00:00 Tushar C MOTOR TEACHER 350.1.13.10 ity of [facility] 4.2.7.2.686 Jamal as MATERNAL [phone] [facility] & CHILD [address] [place] [address] 2019-04-01 2019-04-01 [facility]phone [facility] 1.2.840.114 [id number] Univers 00:00:00 00:00:00 Tushar Lund MOTOR TEACHER 350.1.13.10 ity of [facility] 4.2.7.2.686 Jaaml as MATERNAL [phone] [facility] ical & CHILD [address] [place] [address] 2019 2019 Office [facility], [facility] 1.2.534.917 [id number] Univers 10:39:31 11:16:49 Visit Tushar Lund MOTOR TEACHER 350.1.13.10 ity of [facility] 4.2.7.2.686 Jamal as MATERNAL [phone] [facility] & CHILD [address] [place] [address] 2019 2019 Orders Doctor MOSHE 1.2.840.114 [id number] Univers 00:00:00 00:00:00 Only Unassigned, TEDDY 350.1.13.10 ity of [place] [facility] 4.2.7.2.686 Jamal as [phone] [address] 2018-12-20 2018-12-20 Office Akinsipe, 1.2.840.7 [id number] [facility] 09:37:41 10:39:11 Visit Tushar Lund 47667.1.1 i ty of 3.104.2.7 [place] .3.028731 Medica l .8 [place] 2018-12-20 2018-12-20 Telephone Akinsipe, 1.2.840.3 [id number] Univers 00:00:00 00:00:00 Tushar Lund 05993.1.1 i ty of 3.104.2.7 [place] 3.035620 Medica l .8 [place] 2018-12-20 2018-12-20 Orders Doctor 1.2.840.7 [id number] Univers 00:00:00 00:00:00 Only Unassigned, 65658.1.1 ity of [place] 3.104.2.7 [facility]3.618355 Medica l .8 [place] Results Test Description Test Time Test Comments [...] g/dL 31.6-35.1 L RDW-SD (test code = 44538-0) 38.7 fL 39.0-49.9 L RDW-CV (test code = 788-0) 15.1 % 12.0-15.5 PLT (test code = 777-3) 338 See_Comment [Au tomated message] The system which ge nerated this result transmit brendan reference range: 166 - 35 8 10*3/?L. The reference range was not used to interpret th is result as normal/abnormal . MPV (test code = 92356-4) 10.1 fL 9.5-12.9 NRBC/100 WBC (test code = 0.0 See_Comment [ Automated message] The 8487063701) system which ge nerated this result transmit brendan reference range: 0.0 - 10 .0 /100 WBCs. The reference r yancy was not used to interpr et this result as normal/abnor mal. NRBC x10^3 (test code = See_Comment [Au tomated message] The 8878446576) system which ge nerated this result transmit brendan reference range: 10*3/?L. The reference range was not u sed to interpret this result as normal/abnormal . GRAN MAT (NEUT) % (test code 72.3 % = 770-8) IMM GRAN % (test code = 0.90 % 4348699475) LYMPH % (test code = 736-9) 18.3 % MONO % (test code = 5905-5) 5.8 % EOS % (test code = 713-8) 2.5 % BASO % (test code = 706-2) 0.2 % GRAN MAT x10^3(ANC) (test 7.24 10*3/uL 1.88-7.09 H code = 0900090142) IMM GRAN x10^3 (test code = 0.09 10*3/uL 0.00-0.06 H 6723516158) LYMPH x10^3 (test code = 1.83 10*3/uL 1.32-3.29 731-0) MONO x10^3 (test code = 0.58 10*3/uL 0.33-0.92 742-7) EOS x10^3 (test code = 0.25 10*3/uL 0.03-0.39 711-2) BASO x10^3 (test code = 0.01-0.07 704-7) Lab Interpretation (test Abnormal code = 38874-6) [facility]. METABOLIC PANEL (16618)2022-07-25 03:39:13 Test Item Value Reference Range Interpretation Comments NA (test code = 138 mmol/L 135-145 3258130610) K (test code = 3.1 mmol/L 3.5-5.0 L 3875432456) CL (test code = 109 mmol/L 98-108 H 8853398282) CO2 TOTAL (test code = 21 mmol/L 23-31 L 6059358496) AGAP (test code = 8 2-16 3375184753) BUN (test code = 12 mg/dL 7-23 7910809827) GLUCOSE (test code = 100 mg/dL 70-110 9835144484) CREATININE (test code = 0.44 mg/dL 0.50-1.04 L 7694225290) TOTAL BILI (test code = 1.1 mg/dL 0.1-1.6 7139654506) CALCIUM (test code = 8.1 mg/dL 8.6-10.6 L 5727098134) T PROTEIN (test code = 6.1 g/dL 6.3-8.2 L 0085273746) ALBUMIN (test code = 2.9 g/dL 3.5-5.0 L 3472295909) ALK PHOS (test code = 101 U/L 34-122 6548604695) ALTv (test code = 11 U/L 5-35 1742-6) AST(SGOT) (test code = 19 U/L 13-40 8679092755) eGFR (test code = 182.3 mL/min/1.73m2 5607564764) ARGENIS (test code = ARGENIS) Association of [...] tests). Lab Interpretation Abnormal (test code = 57701-5) [facility] [id number] 03:29:32 Test Item Value Reference Range Interpretation Comments WBC (test code = 9.87 See_Comment [Automated 6690-2) message] The sy stem which [...] (test code = 38.3 fL 39.0-49.9 L 93409-6) RDW-CV (test code = 15.1 % 12.0-15.5 788-0) PLT (test code = 279 See_Comment [Automated 777-3) message] The sy stem which generated this result transmitted reference range : 166 - 358 10*3/ ?L. The reference r yancy was not used to interpret this result as normal/abnormal . MPV (test code = 10.3 fL 9.5-12.9 05685-5) NRBC/100 WBC (test 0.0 See_Comment [Automat ed code = 8722289356) message] The system which generated this result transmitted reference range : 0.0 - 10.0 /100 WBCs. The refer ence range was not u sed to interpret th is result as normal/abnormal . NRBC x10^3 (test code See_Comment [Auto mated = 7858087373) message] The s ystem which generated this result transmitted reference range : 10*3/?L. The reference range was not used to interpret this result as normal/abnormal . GRAN MAT (NEUT) % 80.7 % (test code = 770-8) IMM GRAN % (test code 0.70 % = 4698206382) LYMPH % (test code = 11.3 % 736-9) MONO % (test code = 4.9 % 5905-5) EOS % (test code = 2.2 % 713-8) BASO % (test code = 0.2 % 706-2) GRAN MAT x10^3(ANC) 7.96 10*3/uL 1.88-7.09 H (test code = 7210356134) IMM GRAN x10^3 (test 0.07 10*3/uL 0.00-0.06 H code = 4257211648) LYMPH x10^3 (test code 1.12 10*3/uL 1.32-3.29 L = 731-0) MONO x10^3 (test code 0.48 10*3/uL 0.33-0.92 = 742-7) EOS x10^3 (test code = 0.22 10*3/uL 0.03-0.39 711-2) BASO x10^3 (test code 0.01-0.07 = 704-7) Lab Interpretation Abnormal (test code = 07737-4) [facility] IMMUNE [id number] 00:24:07 Test Item Value Reference Range Interpretation Comments RHIG CANDIDATE? No- see comment Patient i s not a (test code = candidate for R hIg- 5188) Patient is Rh Positive.Perfor med at [facility] Laboratory Services - [facility] Blood [address] [place] [phone] Free: [phone] A No. [id number] [facility]villeCB with Rimjfcwbncos6718-64-12 11:22:51 Test Item Value Reference Range Interpretation Comments WBC (test code = 21.75 See_Comment H [Automated 7023-2) message] The system which generated this result transmit brendan reference range : 4.30 - 11.10 10*3/?L. The reference range was not used to interpret this result as normal/abnormal . RBC (test code = 3.93 See_Comment [Automated 050-4) message] The system which generated this result [...] (test code = 37.8 fL 39.0-49.9 L 85337-6) RDW-CV (test code = 14.6 % 12.0-15.5 788-0) PLT (test code = 216 See_Comment [Automated 777-3) message] The system which generated this result transmit brendan reference range : 166 - 358 10*3/ ?L. The reference range was not u sed to interpret th is result as normal/abnormal . MPV (test code = 10.8 fL 9.5-12.9 57994-0) NRBC/100 WBC (test 0.0 See_Comment [Automat ed code = 9302851507) message] The system which generated this result transmit brendan reference range : 0.0 - 10.0 /100 WBCs. The reference range was not used to interpret this result as normal/abnormal . NRBC x10^3 (test code See_Comment [Auto mated = 4681826241) message] The system which generated this result transmit brendan reference range : 10*3/?L. The reference range was not used to interpret this result as normal/abnormal . SEG % (test code = 83 % 33-76 H 37075-4) BAND % (test code = 9 % 0-1 H 59387-6) LYMPH % (test code = 8 % 14-54 L 69050-3) ANC (test code = 20.01 10*3/uL 1.88-7.09 H 753-4) Lab Interpretation Abnormal (test code = 65769-9) [facility] with Rdlecfkpyrql6831-27-67 11:22:51 Test Item Value Reference Range Interpretation [...] (test code = 37.8 fL 39.0-49.9 L 69190-5) RDW-CV (test code = 14.6 % 12.0-15.5 788-0) PLT (test code = 216 See_Comment [Automated 777-3) message] The system which generated this result transmit brendan reference range : 166 - 358 10*3/ ?L. The reference range was not u sed to interpret th is result as normal/abnormal . MPV (test code = 10.8 fL 9.5-12.9 55369-8) NRBC/100 WBC (test 0.0 See_Comment [Automat ed code = 3938674722) message] The system which generated this result transmit brendan reference range : 0.0 - 10.0 /100 WBCs. The reference range was not used to interpret this result as normal/abnormal . NRBC x10^3 (test code See_Comment [Auto mated = 1592623268) message] The system which generated this result transmit brendan reference range : 10*3/?L. The reference range was not used to interpret this result as normal/abnormal . SEG % (test code = 83 % 33-76 H 52719-6) BAND % (test code = 9 % 0-1 H 45756-6) LYMPH % (test code = 8 % 14-54 L 49530-1) ANC (test code = 20.01 10*3/uL 1.88-7.09 H 753-4) Lab Interpretation Abnormal (test code = 48138-3) [facility] URINALYSIS W SPECIFIC [id number] 19:23:00 Test Item Value Reference Range Interpretation [...] = 3267) . [facility] URINALYSIS W SPECIFIC [id number] 19:48:00 Test Item Value Reference Range Interpretation [...] U APPEAR (test code = 3267) . [facility] W SPECIFIC [id number] 18:04:00 Test Item Value Reference Range Interpretation [...] U APPEAR (test code = 3267) . [facility] with Yebfeojmcsax8811-03-60 04:55:42 Test Item Value Reference Range Interpretation Comments WBC (test code = 12.52 See_Comment H [Automated 3790-2) message] The sy stem which generated this result transmitted reference range : 4.30 - 11.10 10*3/?L. The reference range was not used to interpret this result as normal/abnormal . RBC (test code = 4.28 See_Comment [Automated 899-8) message] The sy stem which generated this [...] RDW-SD (test code = 39.8 fL 39.0-49.9 12115-2) RDW-CV (test code = 13.8 % 12.0-15.5 788-0) PLT (test code = 287 See_Comment [Automated 777-3) message] The sy stem which generated this result transmitted reference range : 166 - 358 10*3/ ?L. The reference r yancy was not used to interpret this result as normal/abnormal . MPV (test code = 11.0 fL 9.5-12.9 91865-7) NRBC/100 WBC (test 0.0 See_Comment [Automat ed code = 3339637904) message] The system which generated this result transmitted reference range : 0.0 - 10.0 /100 WBCs. The refer ence range was not u sed to interpret th is result as normal/abnormal . NRBC x10^3 (test code See_Comment [Auto mated = 4036342342) message] The s ystem which generated this result transmitted reference range : 10*3/?L. The reference range was not used to interpret this result as normal/abnormal . GRAN MAT (NEUT) % 68.4 % (test code = 770-8) IMM GRAN % (test code 1.10 % = 9217925728) LYMPH % (test code = 19.6 % 736-9) MONO % (test code = 6.5 % 5905-5) EOS % (test code = 3.8 % 713-8) BASO % (test code = 0.6 % 706-2) GRAN MAT x10^3(ANC) 8.56 10*3/uL 1.88-7.09 H (test code = 6848380794) IMM GRAN x10^3 (test 0.14 10*3/uL 0.00-0.06 H code = 7502617745) LYMPH x10^3 (test code 2.46 10*3/uL 1.32-3.29 = 731-0) MONO x10^3 (test code 0.82 10*3/uL 0.33-0.92 = 742-7) EOS x10^3 (test code = 0.47 10*3/uL 0.03-0.39 H 711-2) BASO x10^3 (test code 0.07 10*3/uL 0.01-0.07 = 704-7) Lab Interpretation Abnormal (test code = 41263-1) [facility] Hour [facility] Nteexjqk1518-00-61 04:31:20 Test Item Value Reference Range Interpretation Comments GLUC 1 HR (test code = 7483809806) 72 mg/dL 120-170 L Lab Interpretation (test code = Abnormal 09684-2) [facility] URINALYSIS W SPECIFIC [id number] 20:18:00 Test Item Value Reference Range Interpretation [...] = 3267) . [facility] URINALYSIS W SPECIFIC [id number] 20:18:00 Test Item Value Reference Range Interpretation [...] = 3267) . [facility] URINALYSIS W SPECIFIC [id number] 17:24:00 Test Item Value Reference Range Interpretation [...] = 3267) . [facility] URINALYSIS W SPECIFIC [id number] 16:03:00 Test Item Value Reference Range Interpretation [...] = 3267) . [facility] URINALYSIS W SPECIFIC [id number] 17:19:00 Test Item Value Reference Range Interpretation [...] = 3267) . [facility] URINALYSIS W SPECIFIC [id number] 17:19:00 Test Item Value Reference Range Interpretation [...] = 3267) . [facility] URINALYSIS W SPECIFIC [id number] 16:39:00 Test Item Value Reference Range Interpretation [...] POCT U APPEAR (test code = 3267) [facility] URINALYSIS W SPECIFIC [id number] 19:37:00 Test Item Value Reference Range Interpretation [...] = 3267) . [facility] URINALYSIS W SPECIFIC [id number] 15:33:00 Test Item Value Reference Range Interpretation [...] = 3267) . [facility] [id number] 14:34:00 Test Item Value Reference Range Interpretation Comments POCT PREG (test code = 1605) Positive On board controls acceptable with C Yes Line (test code = 3574) POCT PREG LOT # (test code = 3575) POCT PREG TEST DATE (test code = 357) [facility] URINALYSIS W/O SPECIFIC [id number] 14:34:00 Test Item Value Reference Range Interpretation [...] code = 3257) negative Negative - Negative [facility] [id number] 14:34:00 Test Item Value Reference Range Interpretation Comments POCT PREG (test code = 1605) Positive On board controls acceptable with C Yes Line (test code = 3574) POCT PREG LOT # (test code = 3575) POCT PREG TEST DATE (test code = 357) [facility] URINALYSIS W/O SPECIFIC [id number] 14:34:00 Test Item Value Reference Range Interpretation [...] code = 3257) negative Negative - Negative [facility] [id number] 14:31:00 Test Item Value Reference Range Interpretation Comments POCT PREG (test code = 1605) Positive On board controls acceptable with C Yes Line (test code = 3574) POCT PREG LOT # (test code = 3575) POCT PREG TEST DATE (test code = 3576) [facility] [id number] 18:26:00 Test Item Value Reference Range Interpretation Comments POCT PREG (test code Negative = 1605) On board controls Yes acceptable with C Line (test code = 3574) POCT PREG LOT # (test code = 3575) POCT PREG TEST DATE (test code = 3576) ARGENIS (test code = ARGENIS) accurate development and interpretation of all internal controls [facility]
--- NOTE | 2022-12-12 18:39 | ER ---
Nurse's Notes [facility] Name: Sil Gaytan Age: 22 yrs Sex: Female : 2000 Arrival Date: 12/12/2022 Time: 17:57 Bed IW4 Private MD: Diagnosis: Vomiting Presentation: 12/12 18:29 Chief complaint: Patient states: Nausea and vomiting x2 today. "i called in today so i nj1 need to get a doctors note". Coronavirus screen: Vaccine status: Patient reports being unvaccinated. Ebola Screen: Patient denies travel to an Ebola-affected area in the 21 days before illness onset. Initial Sepsis Screen: Does the patient meet any 2 criteria? HR > 90 bpm. No. Patient's initial sepsis screen is negative. Does the patient have a suspected source of infection? No. Patient's initial sepsis screen is negative. Risk Assessment: Do you want to hurt yourself or someone else? Patient reports no desire to harm self or others. Onset of symptoms was December 12, 2022. 18:29 Method Of Arrival: Ambulatory [facility] 18:29 Acuity: DELMAR 4 [facility] Triage Assessment: 18:32 General: Appears in no apparent distress. comfortable, Behavior is calm, cooperative, nj appropriate for age. Pain: Denies pain. Neuro: No deficits noted. Cardiovascular: No deficits noted. Respiratory: No deficits noted. GI: Patient currently denies abdominal pain, nausea. Historical: - Allergies: 18:31 Codeine; [facility] 18:31 PENICILLINS; [facility] 18:31 Prednisone; [facility] - PMHx: 18:31 Asthma; Hypertensive disorder; [facility] - PSHx: 18:31 ; pa1 - Immunization history:: Client reports having NOT received the Covid vaccine. - Social history:: Smoking status: Patient denies any tobacco usage or history of. Patient uses street drugs, marijuana. Vital Signs: 18:29 BP 135 / 89; Pulse 107; Resp 16; Temp 98.1; Pulse Ox 100% ; Weight 77.11 kg; Height 5 [facility] ft. 6 in. ; Pain 0/10; 18:29 Body Mass Index 27.44 (77.11 kg, 167.64 cm) [facility] 18:29 Pain Scale: Adult [facility] ED Course: 18:02 Patient arrived in ED. mr 18:03 Garza, Elvis, DO is Attending Physician. ms3 18:14 Nacho Lauren DO is Referral Physician. ms3 18:31 Triage completed. nj1 18:32 Arm band placed on right wrist. nj1 18:38 Provided Education on: discharge instructions. nj1 18:38 No provider procedures requiring assistance completed. Patient did not have IV access nj1 during this emergency room visit. Administered Medications: No medications were administered Outcome: 18:14 Discharge ordered by MD. ms3 18:37 Discharged to home ambulatory, nj1 18:37 Condition: stable 18:37 Discharge instructions given to patient, Instructed on discharge instructions, follow up and referral plans. Demonstrated understanding of instructions, follow-up care, 18:38 Patient left the ED. nj1 Signatures: Mary Teague, Stefan Reg mr GarzaElvis DO DO ms3 Yelena Flowers, RN RN nj1
[2022-12-12 19:32] VITALS: BP 135/89; TEMP 98.1; O2SAT 100
== END 2022-12-12 18:38 | disposition home or self-care (01) ==
LOC: ER 17:57
DX: R11.10 Vomiting, unspecified (principal); Z88.0 Allergy status to penicillin; Z88.5 Allergy status to narcotic agent; Z88.8 Allergy status to other drugs, medicaments and biological substances
CPT/HCPCS: 99282

== ENCOUNTER 2023-01-08 22:14 | Emergency (ER) | payer SELFPAY ==
--- OUTSIDE RECORDS SUMMARY | 2023-01-08 22:49 | XMS REPORT | Continuity of Care Document ---
:2000 Author Organization [facility] t Address [address] [facility] [address] [place] [address] Care Team Providers Name Role Phone TUSHAR LAN Primary Care Physician Unavailable KASEY BLANCO Attending Clinician Unavailable KASEY BLANCO Attending Clinician Unavailable TUSHAR LAN Attending Clinician Unavailable Riky Tushar JASON Attending Clinician [phone] MOSHE AGOSTO Attending Clinician Unavailable [facility], [facility] Attending Clinician Unavailable HETAL NORRIS Attending Clinician Unavailable Hetal Norris MD Attending Clinician Patt Nova RN Attending Clinician Unavailable AUSTIN ARZOLA Attending Clinician Unavailable Austin Arzola MD Attending Clinician Doctor Unassigned, [employer] Attending Clinician Unavailable Antonette Solano CNM Attending Clinician ANTONETTE SOLANO Attending Clinician Unavailable SHEREEN TRAVIS Attending Clinician Unavailable Risk, Qwp-Wpzlr-Vt/High Attending Clinician Unavailable Shereen Travis MD Attending Clinician Ultrasound, Ang-Mfm Attending Clinician Unavailable Edwin Pacheco Attending Clinician EDWIN CAGE Attending Clinician Unavailable David Cooper DO Attending Clinician SARA SNYDER Attending Clinician Unavailable SARA SNYDER Attending Clinician Unavailable Provider, Ang-Rmchp Temp Attending Clinician Unavailable Ramo QUIONNEZ, Niki Dominguez Attending Clinician NIKI RALPH Attending Clinician Unavailable JAM SAUNDERS Attending Clinician Unavailable CLINTON CRUMP Attending Clinician Unavailable Madonna QUINONEZ, Ernesto Rosario Attending Clinician ERNESTO PEACOCK Attending Clinician Unavailable Rosio Pastor Attending Clinician Dylan Prieto MD S Attending Clinician Maria PALCAIOS, HOSPICE ADMINISTRATOR, R Attending Clinician Fer, Ang-Rmchp Attending Clinician [...] Effective Date Expiration Date Daniel del angel [facility] [id number] 2021 00:00:00 Problems Condition Condition Condition Status Onset Resolution Last Treating Co mments Source Name Details Category Date Date Treatment Clinician Date Well woman Well woman Disease Active U nivers exam exam 7-12 ity of 00:00: [facility] Routine Routine Disease Active Univers 6-16 [place] of [place] [facility] Disease Active Uni vers induced induced 6-02 ity of hypertensi hypertens[place], 00 Medical antepartum antepartum Br anch Disease Active U nivers state state 6-02 ity of 00:00: [place] [facility] Obesity Obesity Disease Active Univers (BMI (BMI 5-28 ity of 30-39.9) 30-39.9) 00:00: [facility] Postoperat Postoperat Disease Active U nivers chris fever chris fever 5-28 ity of 00:00: [place] [facility] Disease Active Univers premature premature 5-25 ity of rupture of rupture of 00:[place] membranes membranes 00 [facility] (PPROM) (PPROM) [facility] with onset with onset of labor of labor within 24 within 24 hours of hours of rupture in rupture in third third trimester, trimester, antepartum antepartum 36 weeks 36 weeks Disease Active Unive rs gestation gestation 5-25 ity of of of 00:00: [place] 00 [facility] Liveborn Liveborn Disease Active Unive rs infant, of , of 5-25 it y of [place]cke[place] 00:[place] , , 00 Me dical born in born in [facility] by by delivery delivery UTI in UTI in Disease Active Overview: Univer s 5-24 Formattin i ty of 00:00: g of this 00 note Medical might be Branch different from the original. Per meds sent and patient notified Supervisio Supervisio Disease Active U david n of n of 3-02 ity of high-risk high-risk 00:[place] [facility] Multiparit Multiparit Disease Active U nivtomas y y 3-02 ity of 00:00: [place] 00 Medical Branch History of History of Disease Active 2021-02 U nivers pre-eclamp pre-eclamp 0-27 it y of [place] in 00:00: [place] prior prior 00 Medical , , Br anch currently currently Disease Active 2021-02 Uni vers related related 0-27 ity of nausea, nausea, 00:00: [place] antepartum antepartum 00 Me dical Branch Declines Declines Disease Active 2021-02 Unive rs flu flu 0-27 ity of vaccine vaccine 00:00: [place] 00 Medical Branch History of History of Disease Active 2021-02 U nivers anxiety anxiety 0-27 ity of and and 00:00: [place] depression depression 00 Nm dical Branch Missed Missed Disease Active 2021-02 Univers menses menses 0-13 ity of 00:00: [place] 00 Medical Branch History of History of Disease Active 2021-02 U nivers 0-13 ity of delivery, delivery, 00:00: Inessa taylor currently currently 00 Medi lottie Branch Other Other Disease Active Univers general general 8-02 ity of counseling counseling 00:00[place] and advice and advice 00 Nm dical for for Branch contracept contracept chris chris management management Elevated Elevated Disease Active Unive rs blood blood 8-02 ity of pressure pressure 00:00: [place] reading reading 00 Medical without without Branch [...] Comments Source ASSERTION 2021-11-25 University of 00:00:00 [place] [facility] History SDOH University o f Alcohol Std Drinks [place] [facility] History SDOH University o f Alcohol Binge [place] Medic al Branch History [facility] University o f Alcohol Comment [place] Med ical Branch Sexual orientation [facility] Exposure to 2022-07-11 2022-07-21 Not sure University of SARS-CoV-2 (event) 00:00:00 10:35:[address] [facility] History of Social 2021-12-23 2021-12-23 Univers ity of function 00:00:00 00:00:[address] [facility] Alcohol intake 2020-06-23 2020-06-23 Lifetime University of 00:00:00 00:00:00 non-drinker [place] Medical (finding) Branch Tobacco use and 2018-12-20 2018-12-20 Smokeless Universit y of exposure 00:00:00 00:00:00 tobacco non-user [facility] dical Branch History SDOH 2018-12-20 2018-12-20 1 University o f Alcohol Frequency 00:00:00 00:00:00 [facility] edical Branch Sex Assigned At [birth year] Universit y of 00:00:00 00:00:[address] [facility] Smoking Status Start Date Stop Date Source Never smoked tobacco [facility] Medications Ordered Filled Start Stop Current [...] Until Discontinu ed, Routine labetaloL 2022-0 Yes [id number] 200mg Take 1 U nivers 200 mg 6-02 tablet by ity of tablet 00:00: mouth [place] 00 every 12 Medical (twelve) Branch hours. labetaloL 2022-0 Yes [id number] 200mg Take 1 U nivers 200 mg 6-02 tablet by ity of tablet 00:00: mouth [place] 00 every 12 Medical (twelve) Branch hours. labetaloL 2022-0 Yes [id number] 200mg Take 1 U nivers 200 mg 6-02 tablet by ity of tablet 00:00: mouth [place] 00 every 12 Medical (twelve) Branch hours. labetaloL 2022-0 Yes [id number] 200mg Take 1 U nivers 200 mg 6-02 tablet by ity of tablet 00:00: mouth [place] 00 every 12 Medical (twelve) Branch hours. labetaloL 2022-0 Yes [id number] 200mg Take 1 U nivers 200 mg 6-02 tablet by ity of tablet 00:00: mouth [place] 00 every 12 Medical (twelve) Branch hours. labetaloL 2023-0 Yes [id number] 200mg Take 1 U nivers 200 mg 6-02 tablet by ity of tablet 00:00: mouth [place] 00 every 12 Medical (twelve) Branch hours. labetaloL 2023-0 Yes [id number] 200mg Take 1 U nivers 200 mg 6-02 tablet by ity of tablet 00:00: mouth [place] 00 every 12 Medical (twelve) Branch hours. labetaloL 2022-0 Yes [id number] 200mg Take 1 U nivers 200 mg 6-02 tablet by ity of tablet 00:00: mouth [place] 00 every 12 Medical (twelve) Branch hours. labetaloL Yes [id number] 200mg Take 1 U nivers 200 mg [...] First dose [place] mg 00 on [facility] 07/24/22 at Branch 2000, Until Discontinu ed, Routine ceFAZolin 2022- No 1000mg 1,000 mg, Univers (ANCEF) 07-24 IV ity of 1,000 mg in 19:00: 18:59 [place], [place] NaCl 0.9% 00 :00 Q8H ABX, 6 Medi lottie (NS) 100 mL doses, [facility] MINI-BAG First dose (after last modificati on) on [place] 07/24/22 at 1400, Last dose on Mon07/26/22 [...] Medi lottie tablet 2 on [facility] tablet 07/24/22 at 1023, Until Discontinu ed, Routine, Pain (scale 7-10), Alternate with Ibuprofen HYDROcodone 2023-0 Yes 1{tbl} 1 tablet, Univers -acetaminop 07-24 Oral, ity of hen (NORCO 15:23: Q6HPRN, [place] 5) 5-325 mg 22 Starting Medi lottie tablet 1 on [facility] tablet 07/24/22 at 1023, Until [...] 25 28 Starting Medica l mg on [place] Branch 07/24/22 at 1021, Until Discontinu ed, Routine, Sleep, Itching ondansetron 3-0 Yes 4mg 4 mg, Slow Univers (ZOFRAN 07-24 IV Push, ity of (PF)) 15:21: Q8HPRN, [place] injection 4 28 Starting Medi lottie mg on [facility] 07/24/22 at 1021, Until Discontinu ed, Routine, Nausea and Vomiting (N/V) bisacodyL 2022-0 Yes 10mg 10 mg, Univer s (DULCOLAX) 07-24 Rectal, ity of suppository 15:21: QDAILYPRN, [place] 10 mg 28 Starting Medical on [place] Branch 07/24/22 at 1021, Until Discontinu ed, Routine, Constipati on simethicone 2023-0 Yes 160mg 160 mg, Un odilon (GAS RELIEF 07-24 Oral, ity of (SIMETHICON 15:21: PC+HSPRN, [place] E)) 28 Starting Medical chewable on [facility] tablet 160 07/24/22 at mg 1021, Until Discontinu ed, Routine, Gas docusate 3-0 Yes 200mg 200 mg, Unive rs (COLACE) 07-24 Oral, ity of capsule 200 15:21: QDAILYPRN, [place] mg 28 Starting Medical on [place] Branch 07/24/22 at 1021, Until Discontinu ed, Routine, Constipati on magnesium Yes 30mL [facility] Oral, ity of (MILK [...] 07-23 mouth. ity of fum/folic/d 12:50: 00:00 [place] betancur 40 :00 Medical (-1 Branch ORAL) [...]
D uration of Therapy: 7 days Yes [id number] 1{tbl} Take 1 Univers vitamin 5-27 tablet by ity of w/FA tablet 00:00: mouth in [place] 00 the Medical morning. Branch docusate Yes [id number] 200mg Take 2 U nivers 100 mg 5-27 capsules ity of capsule 00:00: by mouth [place] 00 once daily Medical as needed Branch for Constipati on. ferrous Yes [id number] 325mg Take 1 Un odilon sulfate 325 5-27 tablet by ity of mg (65 mg 00:00: [place] iron) 00 the Medical tablet morning Branch and 1 tablet in the evening. ibuprofen Yes [id number] 600mg Take 1 Univers 600 mg 5-27 tablet by ity of tablet 00:00: mouth [place] 00 every 6 Medical (six) Branch hours as needed (Pain). Take with food or milk. Yes [id number] 1{tbl} Take 1 Univers vitamin 5-27 tablet by ity of w/FA tablet 00:00: mouth in [place] 00 the Medical morning. Branch docusate Yes [id number] 200mg Take 2 U nivers 100 mg 5-27 capsules ity of capsule 00:00: by mouth [place] 00 once daily Medical as needed Branch for Constipati on. ferrous Yes [id number] 325mg Take 1 Un odilon sulfate 325 5-27 tablet by ity of mg (65 mg 00:00: [place] iron) 00 the Medical tablet morning Branch and 1 tablet in the evening. 2023-0 Yes [id number] 1{tbl} Take 1 Univers vitamin 5-27 tablet by ity of w/FA tablet 00:00: mouth in [place] 00 the Medical morning. Branch docusate 0 Yes [id number] 200mg Take 2 U nivers 100 mg 5-27 capsules ity of capsule 00:00: by mouth [place] 00 once daily Medical as needed Branch for Constipati on. ferrous 0 Yes [id number] 325mg Take 1 Un odilon sulfate 325 5-27 tablet by ity of mg (65 mg 00:00: [place] iron) 00 the Medical tablet morning Branch and 1 tablet in the evening. 0 Yes [id number] 1{tbl} Take 1 Univers vitamin 5-27 tablet by ity of w/FA tablet 00:00: mouth in [place] 00 the Medical morning. Branch docusate 0 Yes [id number] 200mg Take 2 U nivers 100 mg 5-27 capsules ity of capsule 00:00: by mouth [place] 00 once daily Medical as needed Branch for Constipati on. ferrous 0 Yes [id number] 325mg Take 1 Un odilon sulfate 325 5-27 tablet by ity of mg (65 mg 00:00: [place] iron) 00 the Medical tablet morning Branch and 1 tablet in the evening. 0 Yes [id number] 1{tbl} Take 1 Univers vitamin 5-27 tablet by ity of w/FA tablet 00:00: mouth in [place] 00 the Medical morning. Branch docusate 0 Yes [id number] 200mg Take 2 U nivers 100 mg 5-27 capsules ity of capsule 00:00: by mouth [place] 00 once daily Medical as needed Branch for Constipati on. ferrous 0 Yes [id number] 325mg Take 1 Un odilon sulfate 325 5-27 tablet by ity of mg (65 mg 00:00: mouth [place] iron) 00 the Medical tablet morning Branch and 1 tablet in the evening. 0 Yes [id number] 1{tbl} Take 1 Univers vitamin 5-27 tablet by ity of w/FA tablet 00:00: mouth in [place] 00 the Medical morning. Branch docusate 0 Yes [id number] 200mg Take 2 U nivers 100 mg 5-27 capsules ity of capsule 00:00: by mouth [place] 00 once daily Medical as needed Branch for Constipati on. ferrous 2022-0 Yes [id number] 325mg Take 1 Un odilon sulfate 325 5-27 tablet by ity of mg (65 mg 00:00: [place] iron) 00 the Medical tablet morning Branch and 1 tablet in the evening. 2022-0 Yes [id number] 1{tbl} Take 1 Univers vitamin 5-27 tablet by ity of w/FA tablet 00:00: mouth in [place] 00 the Medical morning. Branch docusate 0 Yes [id number] 200mg Take 2 U nivers 100 mg 5-27 capsules ity of capsule 00:00: by mouth [place] 00 once daily Medical as needed Branch for Constipati on. ferrous 0 Yes [id number] 325mg Take 1 Un odilon sulfate 325 5-27 tablet by ity of mg (65 mg 00:00: [place] iron) 00 the Medical tablet morning Branch and 1 tablet in the evening. 0 Yes [id number] 1{tbl} Take 1 Univers vitamin 5-27 tablet by ity of w/FA tablet 00:00: mouth in [place] 00 the Medical morning. Branch docusate 0 Yes [id number] 200mg Take 2 U nivers 100 mg 5-27 capsules ity of capsule 00:00: by mouth [place] 00 once daily Medical as needed Branch for Constipati on. ferrous 2022-0 Yes [id number] 325mg Take 1 Un odilon sulfate 325 5-27 tablet by ity of mg (65 mg 00:00: mouth [place] iron) 00 the Medical tablet morning Branch and 1 tablet in the evening. 2022-0 Yes [id number] 1{tbl} Take 1 Univers vitamin 5-27 tablet by ity of w/FA tablet 00:00: mouth in [place] 00 the Medical morning. Branch docusate 0 Yes [id number] 200mg Take 2 U nivers 100 mg 5-27 capsules ity of capsule 00:00: by mouth [place] 00 once daily Medical as needed Branch for Constipati on. ferrous 2022-0 Yes [id number] 325mg Take 1 Un odilon sulfate 325 5-27 tablet by ity of mg (65 mg 00:00: [place] iron) 00 the Medical tablet morning Branch and 1 tablet in the evening. 0 Yes [id number] 1{tbl} Take 1 Univers vitamin 5-27 tablet by ity of w/FA tablet 00:00: mouth in [place] 00 the Medical morning. Branch docusate 0 Yes [id number] 200mg Take 2 U nivers 100 mg 5-27 capsules ity of capsule 00:00: by mouth [place] 00 once daily Medical as needed Branch for Constipati on. ferrous Yes [id number] 325mg Take 1 Un odilon sulfate 325 5-27 tablet by ity of mg (65 mg 00:00: mouth [place] iron) 00 the Medical tablet morning Branch and 1 tablet in the evening. 0 Yes [id number] 1{tbl} Take 1 Univers vitamin 5-27 tablet by ity of w/FA tablet 00:00: mouth in [place] 00 the Medical morning. Branch docusate 0 Yes [id number] 200mg Take 2 U nivers 100 mg 5-27 capsules ity of capsule 00:00: by mouth [place] 00 once daily Medical as needed Branch for Constipati on. ferrous Yes [id number] 325mg Take 1 Un odilon sulfate 325 5-27 tablet by ity of mg (65 mg 00:00: mouth [place] iron) 00 the Medical tablet morning Branch and 1 tablet in the evening. 0 Yes [id number] 1{tbl} Take 1 Univers vitamin 5-27 tablet by ity of w/FA tablet 00:00: mouth in [place] 00 the Medical morning. Branch docusate 0 Yes [id number] 200mg Take 2 U nivers 100 mg 5-27 capsules ity of capsule 00:00: by mouth [place] 00 once daily Medical as needed Branch for Constipati on. ferrous 0 Yes [id number] 325mg Take 1 Un odilon sulfate 325 5-27 tablet by ity of mg (65 mg 00:00: [place] iron) 00 the Medical tablet morning Branch and 1 tablet in the evening. 2022-0 Yes [id number] 1{tbl} Take 1 Univers vitamin 5-27 tablet by ity of w/FA tablet 00:00: mouth in [place] 00 the Medical morning. Branch docusate Yes [id number] 200mg Take 2 U nivers 100 mg 5-27 capsules ity of capsule 00:00: by mouth [place] 00 once daily Medical as needed Branch for Constipati on. ferrous Yes [id number] 325mg Take 1 Un odilon sulfate 325 5-27 tablet by ity of mg (65 mg 00:00: mouth [place] iron) 00 the Medical tablet morning Branch and 1 tablet in the evening. Yes [id number] 1{tbl} Take 1 Univers vitamin 5-27 tablet by ity of w/FA tablet 00:00: mouth in [place] 00 the Medical morning. Branch docusate Yes [id number] 200mg Take 2 U nivers 100 mg 5-27 capsules ity of capsule 00:00: by mouth [place] 00 once daily Medical as needed Branch for Constipati on. ferrous Yes [id number] 325mg Take 1 Un odilon sulfate 325 [...] Indication s: acute pain ibuprofen 2022- No [id number] 600mg Take 1 Univers 600 mg 5-27 [...] 07-22 Oral, ity of (TYLENOL) 20:00: Q6HPRN, [place] tablet 650 00 Starting Medic al mg on Mon Branch 07/22/22 at 1500, Until Discontinu ed, Routine, Pain acetaminoph 2022-0 Yes 650mg 650 mg, Un odilon en 07-22 Oral, ity of (TYLENOL) 20:00: Q6HPRN, [place] tablet 650 00 Starting Medic al mg [...] Medical Infusion, Branch ONCE, 1 dose, On [facility] 07/21/22 at 1630, Routine diphenhydrA 2022-0 Yes 25mg 25 mg, Univ ers MINE 5-25 Slow IV ity of (BENADRYL) 20:34: Push, [place] injection 05 Q6HPRN, Medical 25 mg Starting Branch on [facility] 07/21/22 at 1534, Until Discontinu ed, Routine, Itching diphenhydrA 2022-0 Yes 25mg 25 mg, Univ ers MINE 5-25 Oral, ity of (BENADRYL) 20:34: Q6HPRN, [place] tablet 25 05 Starting Medica l mg on [facility] Branch 07/21/22 at 1534, Until Discontinu ed, Routine, Sleep, Itching ondansetron 0 Yes 4mg 4 mg, Slow Univers (ZOFRAN 5-25 IV Push, ity of (PF)) 20:34: Q8HPRN, [place] injection 4 05 Starting Medi lottie mg on [facility] Branch 07/21/22 at 1534, Until Discontinu ed, Routine, Nausea and Vomiting (N/V) bisacodyL 0 Yes 10mg 10 mg, Univer s (DULCOLAX) 5-25 Rectal, ity of suppository 20:34: QDAILYPRN, [place] 10 mg 05 Starting Medical on [facility] Branch 07/21/22 at 1534, Until Discontinu ed, Routine, Constipati on simethicone 0 Yes 160mg 160 mg, Un odilon (GAS RELIEF 5-25 Oral, ity of (SIMETHICON 20:34: PC+HSPRN, [place] E)) 05 Starting Medical chewable on [facility] Branch tablet 160 07/21/22 at mg 1534, [...] 25 05 Starting Medica l mg on [facility] Branch 07/21/22 at 1534, Until Discontinu ed, Routine, Sleep, Itching ondansetron 2022-0 Yes 4mg 4 mg, Slow Univers (ZOFRAN 5-25 IV Push, ity of (PF)) 20:34: Q8HPRN, [place] injection 4 05 Starting Medi lottie mg on [facility] Branch 07/21/22 at 1534, Until Discontinu ed, Routine, Nausea and Vomiting (N/V) bisacodyL 2022-0 Yes 10mg 10 mg, Univer s (DULCOLAX) 5-25 Rectal, ity of suppository 20:34: QDAILYPRN, [place] 10 mg 05 Starting Medical on [facility] Branch 07/21/22 at 1534, Until Discontinu ed, Routine, Constipati on simethicone 2022-0 Yes 160mg 160 mg, Un odilon (GAS RELIEF 5-25 Oral, ity of (SIMETHICON 20:34: PC+HSPRN, [place] E)) 05 Starting Medical chewable on [facility] Branch tablet 160 07/21/22 at mg 1534, [...] ity of 2,000 mg in 19:30: 19:07 [place], [place] NaCl 0.9% 00 :00 ONCE, 1 [...] 19 Medical (-1 Branch ORAL) Nitrofurant Yes [id number] 100mg Take 1 Univers oin&Nit. 5-23 capsule by ity o f Macrocryst 00:00: mouth in [place] 100 mg 00 the Medical capsule morning Branch and 1 capsule in the evening. Nitrofurant 0 Yes [id number] 100mg Take 1 Univers oin&Nit. 5-23 capsule by ity o f Macrocryst 00:00: mouth in [place] 100 mg 00 the Medical capsule morning Branch and 1 capsule in the evening. Nitrofurant 0 Yes [id number] 100mg Take 1 Univers oin&Nit. 5-23 capsule by ity o f Macrocryst 00:00: mouth in [place] 100 mg 00 the Medical capsule morning Branch and 1 capsule in the evening. Nitrofurant 2022- No [id number] 100mg Take 1 Univers oin&Nit. 5-23 05-28 capsule by ity of Macrocryst 00:00: 00:00 mouth in [place] 100 mg 00 :00 the Medical capsule morning Branch and 1 capsule in the evening. Yes Take by Univer s 25/iron 5-21 mouth. ity of fum/folic/d 12:50: [facility] 57 Medical (-1 Branch ORAL) 0 Yes Take by Univer s 25/iron 5-21 mouth. ity of fum/folic/d 12:50: [facility] 57 Medical (-1 Branch ORAL) Yes Take by Univer s 25/iron 5-15 mouth. ity of fum/folic/d 03:19: [facility] 16 Medical (-1 Branch ORAL) Yes Take by Univer s 25/iron 5-15 mouth. ity of fum/folic/d 03:19: [facility] 16 Medical (-1 Branch ORAL) Yes Take by Univer s 25/iron 5-15 mouth. ity of fum/folic/d 03:19: [facility] 16 Medical (-1 Branch ORAL) terbutaline [...] 25/iron 5-10 mouth. ity of fum/folic/d 05:26: [facility] 51 Medical (-1 Branch ORAL) Yes Take by Univer s 25/iron 5-10 mouth. ity of fum/folic/d 05:26: [facility] 51 Medical (-1 Branch ORAL) Yes Take by Univer s 25/iron 5-10 mouth. ity of fum/folic/d 05:26: [facility] 51 Medical (-1 Branch ORAL) metroNIDAZO 0 2022- No [id number] 500mg Take 1 Univers LE 500 mg 2-16 -24 tablet by ity of tablet 00:00: 05:59 mouth in [place] 00 :00 the Medical morning Branch and 1 tablet in the evening. Do all this for 7 days. metroNIDAZO 2023-0 2023- No [id number] 500mg Take 1 Univers LE 500 mg 2-16 -24 tablet by ity of tablet 00:00: 05:59 mouth in [place] 00 :00 the Medical morning Branch and 1 tablet in the evening. Do all this for 7 days. metroNIDAZO 2023-0 2023- No [id number] 500mg Take 1 Univers LE 500 mg 216 -24 tablet by ity of tablet 00:00: 05:59 mouth in [place] 00 :00 the Medical morning Branch and 1 tablet in the evening. Do all this for 7 days. metroNIDAZO 2023-0 2023- No [id number] 500mg Take 1 Univers LE 500 mg 2-24 tablet by ity of tablet 00:00: 05:59 mouth in [place] 00 :00 the Medical morning Branch and 1 tablet in the evening. Do all this for 7 days. metroNIDAZO 2023-0 2023- No [id number] 500mg Take 1 Univers LE 500 mg 04-14-24 tablet by ity of tablet 00:00: 05:59 mouth in [place] 00 :00 the Medical morning Branch and 1 tablet in the evening. Do all this for 7 days. hydroxyprog 2023-0 2023- No [id number] 275mg Univers esterone(PF 03-31 ity of ) (KATHLEEN 06:00: 04:59 [place] AUTO-INJECT 00 :00 Medical OR) 275 Branch mg/1.1 mL injection 275 mg hydroxyprog 2023-0 2023- No [id number] 275mg Univers esterone(PF 03-31 ity of ) (KATHLEEN 06:00: 04:59 [place] AUTO-INJECT 00 :00 Medical OR) 275 Branch mg/1.1 mL injection 275 mg hydroxyprog 2023-0 2023- No [id number] 275mg 275 mg, Univers esterone(PF 03-31 Subcutaneo i ty of ) (KATHLEEN 06:00: 04:59 , [place] AUTO-INJECT 00 :00 QWEEKLY, [facility] OR) 275 16 doses, Branch mg/1.1 mL First dose injection on [place] 275 mg 03/31/22 at 0000, Last dose on [place] 07/14/22 at 0000, Routine hydroxyprog 2023-0 2023- No [id number] 275mg Univers esterone(PF 03-31 ity of ) (KATHLEEN 06:00: 04:59 [place] AUTO-INJECT 00 :00 Medical OR) 275 Branch mg/1.1 mL injection 275 mg hydroxyprog 2023-0 2023- No [id number] 275mg 275 mg, Univers esterone(PF 03-31 Subcutaneo i ty of ) (KATHLEEN 06:00: 04:59 , [place] AUTO-INJECT 00 :00 QWEEKLY, [facility] OR) 275 16 doses, Branch mg/1.1 mL First dose injection on [place] 275 mg 03/31/22 at 0000, Last dose on [place] 07/14/22 at 0000, Routine hydroxyprog 2023-0 2023- No [id number] 275mg Univers esterone(PF 03-31 ity of ) (KATH[place]EN 06:00: 04:59 [place] AUTO-INJECT 00 :00 Medical OR) 275 Branch mg/1.1 mL injection 275 mg hydroxyprog 2023-0 2023- No [id number] 275mg Univers esterone(PF 03-31 ity of ) (KATHLEEN 06:00: 04:59 [place] AUTO-INJECT 00 :00 Medical OR) 275 Branch mg/1.1 mL injection 275 mg hydroxyprog 2023-0 2023- No [id number] 275mg Univers esterone(PF 03-31 ity of ) (KATHLEEN 06:00: 04:59 [place] AUTO-INJECT 00 :00 Medical OR) 275 Branch mg/1.1 mL injection 275 mg hydroxyprog 2023-0 2023- No [id number] 275mg Univers esterone(PF 03-31 ity of ) (KATHLEEN 06:00: 04:59 [place] AUTO-INJECT 00 :00 Medical OR) 275 Branch mg/1.1 mL injection 275 mg hydroxyprog 2023-0 2023- No [id number] 275mg Univers esterone(PF 2-02 05-25 ity of ) (KATHLEEN 06:00: 04:59 [place] AUTO-INJECT 00 :00 Medical OR) 275 Branch mg/1.1 mL injection 275 mg hydroxyprog 2023-0 2023- No [id number] 275mg 275 mg, [facility] ester[facility](PF 03-31 Subcutaneo i ty of ) (KATHLEEN 06:00: 04:59 us, [place] AUTO-INJECT 00 :00 QWEEKLY, Medi lottie OR) 275 16 doses, Branch mg/1.1 mL First dose injection on Alissa 275 mg 03/31/22 at 0000, Last dose on Alissa 07/14/22 at 0000, Routine hydroxyprog 2023-0 2023- No [id number] 275mg [facility] ester[facility](PF 03-31 ity of ) (KATHLEEN 06:00: 04:59 [place] AUTO-INJECT 00 :00 Medical OR) 275 Branch mg/1.1 mL injection 275 mg hydroxyprog 2023-0 2023- No [id number] 275mg [facility] ester[facility](PF 03-31 ity of ) (KATHLEEN 06:00: 04:59 [place] AUTO-INJECT 00 :00 Medical OR) 275 Branch mg/1.1 mL injection 275 mg hydroxyprog 2023-0 2023- No [id number] 275mg [facility] ester[facility](PF 03-31 ity of ) (KATHLEEN 06:00: 04:59 [place] AUTO-INJECT 00 :00 Medical OR) 275 Branch mg/1.1 mL injection 275 mg hydroxyprog 2023-0 2023- No [id number] 275mg 275 mg, [facility] esterone(PF 03-31 Subcutaneo i ty of ) (KATHLEEN 06:00: 04:59 us, [place] AUTO-INJECT 00 :00 QWEEKLY, [facility] lottie OR) 275 16 doses, Branch mg/1.1 mL First dose injection on Alissa 275 mg 03/31/22 at 0000, Last dose on [place] 07/14/22 at 0000, Routine hydroxyprog 2023-0 2023- No [id number] 275mg [facility] ester[facility](PF 03-31 ity of ) (KATHLEEN 06:00: 04:59 [place] AUTO-INJECT 00 :00 Medical OR) 275 Branch mg/1.1 mL injection 275 mg hydroxyprog 2023-0 2023- No [id number] 275mg 275 mg, [facility] esterone(PF 03-31 Subcutaneo i ty of ) (KATHLEEN 06:00: 04:59 us, [place] AUTO-INJECT 00 :00 QWEEKLY, [facility] OR) 275 16 doses, Branch mg/1.1 mL First dose injection on Alissa 275 mg 03/31/22 at 0000, Last dose on [place] 07/14/22 at 0000, Routine hydroxyprog 2023-0 2023- No [id number] 275mg [facility] ester[facility](PF 03-31 ity of ) (KATHLEEN 06:00: 04:59 [place] AUTO-INJECT 00 :00 Medical OR) 275 Branch mg/1.1 mL injection 275 mg hydroxyprog 2023-0 2023- No [id number] 275mg 275 mg, [facility] ester[facility](PF 03-31 Subcutaneo i ty of ) (KATHLEEN 06:00: 04:59 us, [place] AUTO-INJECT 00 :00 QWEEKLY, [facility] OR) 275 16 doses, Branch mg/1.1 mL First dose injection on Alissa 275 mg 03/31/22 at 0000, Last dose on Alisas 07/14/22 at 0000, Routine hydroxyprog 2023-0 2023- No [id number] 275mg [facility] ester[facility](PF 03-31 ity of ) (KATHLEEN 06:00: 04:59 [place] AUTO-INJECT 00 :00 Medical OR) 275 Branch mg/1.1 mL injection 275 mg hydroxyprog 2023-0 2023- No [id number] 275mg 275 mg, [facility] ester[facility](PF 03-31 Subcutaneo i ty of ) (KATHLEEN 06:00: 04:59 us, [place] AUTO-INJECT 00 :00 QWEEKLY, [facility] OR) 275 16 doses, Branch mg/1.1 mL First dose injection on [place]issa 275 mg 03/31/22 at 0000, Last dose on [place] 07/14/22 at 0000, Routine hydroxyprog 2023-0 2023- No [id number] 275mg [facility] ester[facility](PF 03-31 ity of ) (KATHLEEN 06:00: 04:59 [place] AUTO-INJECT 00 :00 Medical OR) 275 Branch mg/1.1 mL injection 275 mg hydroxyprog 2023-0 2023- No [id number] 275mg [facility] ester[facility](PF 03-31 ity of ) (KATHLEEN 06:00: 04:59 [place] AUTO-INJECT 00 :00 Medical OR) 275 Branch mg/1.1 mL injection 275 mg hydroxyprog 2023-0 2023- No [id number] 275mg 275 mg, [facility] ester[facility](PF 03-31 Subcutaneo i ty of ) (KATHLEEN 06:00: 04:59 us, [place] AUTO-INJECT 00 :00 QWEEKLY, [facility] OR) 275 16 doses, Branch mg/1.1 mL First dose injection on Alissa 275 mg 03/31/22 at 0000, Last dose on [place] 07/14/22 at 0000, Routine hydroxyprog 2023-0 2023- No [id number] 275mg [facility] ester[facility](PF 03-31 ity of ) (KATHLEEN 06:00: 04:59 [place] AUTO-INJECT 00 :00 Medical OR) 275 Branch mg/1.1 mL injection 275 mg hydroxyprog 2023-0 2023- No [id number] 275mg 275 mg, [facility] ester[facility](PF 03-31 Subcutaneo i ty of ) (KATHLEEN 06:00: 04:59 us, [place] AUTO-INJECT 00 :00 QWEEKLY, [facility] OR) 275 16 doses, Branch mg/1.1 mL First dose injection on Alissa 275 mg 03/31/22 at 0000, Last dose on [place] 07/14/22 at 0000, Routine hydroxyprog 2023-0 2023- No [id number] 275mg [facility] ester[facility](PF 03-31 ity of ) (KATHLEEN 06:00: 04:59 [place] AUTO-INJECT 00 :00 Medical OR) 275 Branch mg/1.1 mL injection 275 mg hydroxyprog 2023-0 2023- No [id number] 275mg 275 mg, [facility] ester[facility](PF 03-31 Subcutaneo i ty of ) (KATHLEEN 06:00: 04:59 us, [place] AUTO-INJECT 00 :00 QWEEKLY, [facility] OR) 275 16 doses, Branch mg/1.1 mL First dose injection on Alissa 275 mg 03/31/22 at 0000, Last dose on [place] 07/14/22 at 0000, Routine hydroxyprog 2023-0 2023- No [id number] 275mg [facility] ester[facility](PF 03-31 ity of ) (KATHLEEN 06:00: 04:59 [place] AUTO-INJECT 00 :00 Medical OR) 275 Branch mg/1.1 mL injection 275 mg hydroxyprog 2023-0 2023- No [id number] 275mg 275 mg, [facility] ester[facility](PF 03-31 Subcutaneo i ty of ) (KATHLEEN 06:00: 04:59 us, [place] AUTO-INJECT 00 :00 QWEEKLY, [facility] OR) 275 16 doses, Branch mg/1.1 mL First dose injection on [place] 275 mg 03/31/22 at 0000, Last dose on [place] 07/14/22 at 0000, Routine hydroxyprog 2023-0 2023- No [id number] 275mg [facility] ester[facility](PF 03-31 ity of ) (KATHLEEN 06:00: 04:59 [place] AUTO-INJECT 00 :00 Medical OR) 275 Branch mg/1.1 mL injection 275 mg hydroxyprog 2023-0 2023- No [id number] 275mg 275 mg, [facility] ester[facility](PF 03-31 Subcutaneo i ty of ) (KATHLEEN 06:00: 04:59 us, [place] AUTO-INJECT 00 :00 QWEEKLY, [facility] OR) 275 16 doses, Branch mg/1.1 mL First dose injection on [place] 275 mg 03/31/22 at 0000, Last dose on [place] 07/14/22 at 0000, Routine hydroxyprog 2023-0 2023- No [id number] 275mg [facility] ester[facility](PF 03-31 ity of ) (KATHLEEN 06:00: 04:59 [place] AUTO-INJECT 00 :00 Medical OR) 275 Branch mg/1.1 mL injection 275 mg hydroxyprog 2023-0 2023- No [id number] 275mg 275 mg, [facility] ester[facility](PF 03-31 Subcutaneo i ty of ) (KATHLEEN 06:00: 04:59 us, [place] AUTO-INJECT 00 :00 QWEEKLY, [facility] OR) 275 16 doses, Branch mg/1.1 mL First dose injection on Al[place] 275 mg 03/31/22 at 0000, Last dose on [place] 07/14/22 at 0000, Routine hydroxyprog 2023-0 2023- No [id number] 275mg [facility](PF 03-31 ity of ) (KATHLEEN 06:00: 04:59 [place] AUTO-INJECT 00 :00 Medical OR) 275 Branch mg/1.1 mL injection 275 mg hydroxyprog 2023-0 2023- No [id number] 275mg [facility] ester[facility](PF 03-31 ity of ) (KATHLEEN 06:00: 04:59 [place] AUTO-INJECT 00 :00 Medical OR) 275 Branch mg/1.1 mL injection 275 mg hydroxyprog 2023-0 2023- No [id number] 275mg [facility](PF 03-31 ity of ) (KATHLEEN 06:: :59 [place] AUTO-INJECT 00 :00 Medical OR) 275 Branch mg/1.1 mL injection 275 mg hydroxyprog 2023-0 2023- No [id number] 275mg [facility] ester[facility](PF 03-31 ity of ) (KATHLEEN 06:: :59 [place] AUTO-INJECT 00 :00 Medical OR) 275 Branch mg/1.1 mL injection 275 mg hydroxyprog 2023-0 2023- No [id number] 275mg [facility](PF 03-31 ity of ) (KATHLEEN 06:: :59 [place] AUTO-INJECT 00 :00 Medical OR) 275 Branch mg/1.1 mL injection 275 mg hydroxyprog 2023-0 2023- No [id number] 275mg [facility](PF 03-31 ity of ) (KATHLEEN 06:: :59 [place] AUTO-INJECT 00 :00 Medical OR) 275 Branch mg/1.1 mL injection 275 mg hydroxyprog 2023-0 2023- No [id number] 275mg [facility](PF 03-31 ity of ) (KATHLEEN 06:: :59 [place] AUTO-INJECT 00 :00 Medical OR) 275 Branch mg/1.1 mL injection 275 mg hydroxyprog 2023-0 2023- No [id number] 275mg [facility](PF 03-31 ity of ) (KATHLEEN 06:00: :59 [place] AUTO-INJECT 00 :00 Medical OR) 275 Branch mg/1.1 mL injection 275 mg hydroxyprog 2023-0 2023- No [id number] 275mg [facility](PF 03-31 ity of ) (KATHLEEN 06:00: 04:59 [place] AUTO-INJECT 00 :00 Medical OR) 275 Branch mg/1.1 mL injection 275 mg hydroxyprog 2023-0 2023- No [id number] 275mg [facility] ester[facility](PF 03-31 ity of ) (KATHLEEN 06:00: 04:59 [place] AUTO-INJECT 00 :00 Medical OR) 275 Branch mg/1.1 mL injection 275 mg hydroxyprog 2023-0 2023- No [id number] 275mg [facility] ester[facility](PF 03-31 ity of ) (KATHLEEN 06:00: 04:59 [place] AUTO-INJECT 00 :00 Medical OR) 275 Branch mg/1.1 mL injection 275 mg hydroxyprog 2023-0 2023- No [id number] 275mg [facility] ester[facility](PF 03-24 ity of ) (KATHLEEN 16:45: 15:59 [place] AUTO-INJECT 00 :00 Medical OR) 275 Branch mg/1.1 mL injection 275 mg hydroxyprog 2023-0 2023- No [id number] 275mg 275 mg, [facility] ester[facility](PF 03-24 Subcutaneo [...] weekly. Medical injection Branch hydroxyprog 2023-0 Yes [id number] 275mg inject 1.1 [facility] ester[facility],PF 1-09 mL under ity of , 275 00:00: the skin [place] mg/1.1 mL 00 weekly. Medical injection Branch hydroxyprog 2023-0 Yes 275mg inject 1.1 [facility] ester[facility],PF 1-09 mL under ity of , 275 00:00: the skin [place] mg/1.1 mL 00 weekly. Medical injection Branch hydroxyprog 2023-0 Yes [id number] 275mg inject 1.1 [facility] ester[facility],PF 1-09 mL under ity of , 275 00:00: the skin [place] mg/1.1 mL 00 weekly. Medical injection Branch hydroxyprog 2023-0 Yes 275mg inject 1.1 [facility] ester[facility],PF 1-09 mL under ity of , 275 00:00: the skin [place] mg/1.1 mL 00 weekly. Medical injection Branch hydroxyprog 2023-0 Yes [id number] 275mg inject 1.1 [facility] ester[facility],PF 1-09 mL under ity of , 275 00:00: the skin [place] mg/1.1 mL 00 weekly. Medical injection Branch hydroxyprog 2023-0 Yes 275mg inject 1.1 [facility] ester[facility],PF 1-09 mL under ity of , 275 00:00: the skin [place] mg/1.1 mL 00 weekly. Medical injection Branch hydroxyprog 2023-0 Yes [id number] 275mg inject 1.1 [facility] ester[facility],PF 1-09 mL under ity of , 275 00:00: the skin [place] mg/1.1 mL 00 weekly. Medical injection Branch hydroxyprog 2023-0 Yes 275mg inject 1.1 [facility] ester[facility],PF 1-09 mL under ity of , 275 00:00: the skin [place] mg/1.1 mL 00 weekly. Medical injection Branch hydroxyprog 2023-0 Yes [id number] 275mg inject 1.1 [facility] ester[facility],PF 1-09 mL under ity of , 275 00:00: the skin [place] mg/1.1 mL 00 weekly. Medical injection Branch hydroxyprog 2023-0 Yes 275mg inject 1.1 [facility] ester[facility],PF 1-09 mL under ity of , 275 00:00: the skin [place] mg/1.1 mL 00 weekly. Medical injection Branch hydroxyprog 2023-0 Yes [id number] 275mg inject 1.1 [facility] ester[facility],PF 1-09 mL under ity of , 275 00:00: the skin [place] mg/1.1 mL 00 weekly. Medical injection Branch hydroxyprog 2023-0 Yes 275mg inject 1.1 [facility] ester[facility],PF 1-09 mL under ity of , 275 00:00: the skin [place] mg/1.1 mL 00 weekly. Medical injection Branch hydroxyprog 2023-0 Yes [id number] 275mg inject 1.1 [facility] ester[facility],PF 1-09 mL under ity of , 275 00:00: the skin [place] mg/1.1 mL 00 weekly. Medical injection Branch hydroxyprog 2023-0 Yes 275mg inject 1.1 [facility] ester[facility],PF 1-09 mL under ity of , 275 00:00: the skin [place] mg/1.1 mL 00 weekly. Medical injection Branch hydroxyprog 2023-0 Yes [id number] 275mg inject 1.1 [facility] ester[facility],PF 1-09 mL under ity of , 275 00:00: the skin [place] mg/1.1 mL 00 weekly. Medical injection Branch hydroxyprog 2023-0 Yes 275mg inject 1.1 [facility] ester[facility],PF 1-09 mL under ity of , 275 00:00: the skin [place] mg/1.1 mL 00 weekly. Medical injection Branch hydroxyprog 2023-0 Yes [id number] 275mg inject 1.1 [facility] esterone,PF 1-09 mL under ity of , 275 00:00: the skin [place] mg/1.1 mL 00 weekly. Medical injection Branch hydroxyprog 2023-0 Yes 275mg inject 1.1 [facility] esterone,PF 1-09 mL under ity of , 275 00:00: the skin [place] mg/1.1 mL 00 weekly. Medical injection Branch hydroxyprog 2023-0 Yes [id number] 275mg inject 1.1 [facility] ester[facility],PF 1-09 mL under ity of , 275 00:00: the skin [place] mg/1.1 mL 00 weekly. Medical injection Branch hydroxyprog 2023-0 Yes 275mg inject 1.1 [facility] esterone,PF 1-09 mL under ity of , 275 00:00: the skin [place] mg/1.1 mL 00 weekly. Medical injection Branch hydroxyprog 2023-0 Yes [id number] 275mg inject 1.1 [facility] ester[facility],PF 1-09 mL under ity of , 275 00:00: the skin [place] mg/1.1 mL 00 weekly. Medical injection Branch hydroxyprog 2023-0 Yes 275mg inject 1.1 [facility] esterone,PF 1-09 mL under ity of , 275 00:00: the skin [place] mg/1.1 mL 00 weekly. Medical injection Branch hydroxyprog 2023-0 Yes [id number] 275mg inject 1.1 [facility] esterone,PF 1-09 mL under ity of , 275 00:00: the skin [place] mg/1.1 mL 00 weekly. Medical injection Branch hydroxyprog 2023-0 Yes 275mg inject 1.1 [facility] esterone,PF 1-09 mL under ity of , 275 00:00: the skin [place] mg/1.1 mL 00 weekly. Medical injection Branch hydroxyprog 2023-0 Yes [id number] 275mg inject 1.1 [facility] esterone,PF 1-09 mL under ity of , 275 00:00: the skin [place] mg/1.1 mL 00 weekly. Medical injection Branch hydroxyprog 2023-0 Yes 275mg inject 1.1 [facility] esterone,PF 1-09 mL under ity of , 275 00:00: the skin [place] mg/1.1 mL 00 weekly. Medical injection Branch hydroxyprog 2023-0 Yes [id number] 275mg inject 1.1 [facility] ester[facility],PF 1-09 mL under ity of , 275 00:00: the skin [place] mg/1.1 mL 00 weekly. Medical injection Branch hydroxyprog 2023-0 Yes 275mg inject 1.1 [facility] esterone,PF 1-09 mL under ity of , 275 00:00: the skin [place] mg/1.1 mL 00 weekly. Medical injection Branch hydroxyprog 2023-0 Yes [id number] 275mg inject 1.1 [facility] esterone,PF 1-09 mL under ity of , 275 00:00: the skin [place] mg/1.1 mL 00 weekly. Medical injection Branch hydroxyprog 2023-0 Yes 275mg inject 1.1 [facility] esterone,PF 1-09 mL under ity of , 275 00:00: the skin [place] mg/1.1 mL 00 weekly. Medical injection Branch hydroxyprog 2023-0 Yes [id number] 275mg inject 1.1 [facility] esterone,PF 1-09 mL under ity of , 275 00:00: the skin [place] mg/1.1 mL 00 weekly. Medical injection Branch hydroxyprog 2023-0 Yes 275mg inject 1.1 [facility] esterone,PF 1-09 mL under ity of , 275 00:00: the skin [place] mg/1.1 mL 00 weekly. Medical injection Branch hydroxyprog 2023-0 Yes [id number] 275mg inject 1.1 [facility] esterone,PF 1-09 mL under ity of , 275 00:00: the skin [place] mg/1.1 mL 00 weekly. Medical injection Branch hydroxyprog 2023-0 Yes 275mg inject 1.1 [facility] esterone,PF 1-09 mL under ity of , 275 00:00: the skin [place] mg/1.1 mL 00 weekly. Medical injection Branch hydroxyprog 2023-0 Yes [id number] 275mg inject 1.1 [facility] esterone,PF 1-09 mL under ity of , 275 00:00: the skin [place] mg/1.1 mL 00 weekly. Medical injection Branch hydroxyprog 2023-0 Yes 275mg inject 1.1 [facility] esterone,PF 1-09 mL under ity of , 275 00:00: the skin [place] mg/1.1 mL 00 weekly. Medical injection Branch hydroxyprog 2023-0 Yes [id number] 275mg inject 1.1 [facility] esterone,PF 1-09 mL under ity of , 275 00:00: the skin [place] mg/1.1 mL 00 weekly. Medical injection Branch hydroxyprog 2023-0 Yes 275mg inject 1.1 [facility] esterone,PF 1-09 mL under ity of , 275 00:00: the skin [place] mg/1.1 mL 00 weekly. Medical injection Branch hydroxyprog 2023-0 Yes [id number] 275mg inject 1.1 [facility] esterone,PF 1-09 mL under ity of , 275 00:00: the skin [place] mg/1.1 mL 00 weekly. Medical injection Branch hydroxyprog 2023-0 Yes 275mg inject 1.1 [facility] esterone,PF 1-09 mL under ity of , 275 00:00: the skin [place] mg/1.1 mL 00 weekly. Medical injection Branch hydroxyprog 2023-0 Yes [id number] 275mg inject 1.1 [facility] esterone,PF 1-09 mL under ity of , 275 00:00: the skin [place] mg/1.1 mL 00 weekly. Medical injection Branch hydroxyprog 2023-0 Yes 275mg inject 1.1 [facility] esterone,PF 1-09 mL under ity of , 275 00:00: the skin [place] mg/1.1 mL 00 weekly. Medical injection Branch hydroxyprog 2023-0 Yes [id number] 275mg inject 1.1 [facility] ester[facility],PF 1-09 mL under ity of , 275 00:00: the skin [place] mg/1.1 mL 00 weekly. Medical injection Branch hydroxyprog 2023-0 Yes 275mg inject 1.1 [facility] esterone,PF 1-09 mL under ity of , 275 00:00: the skin [place] mg/1.1 mL 00 weekly. Medical injection Branch hydroxyprog 2023-0 Yes [id number] 275mg inject 1.1 [facility] esterone,PF 1-09 mL under ity of , 275 00:00: the skin [place] mg/1.1 mL 00 weekly. Medical injection Branch hydroxyprog 2023-0 Yes 275mg inject 1.1 [facility] esterone,PF 1-09 mL under ity of , 275 00:00: the skin [place] mg/1.1 mL 00 weekly. Medical injection Branch hydroxyprog 2023-0 Yes [id number] 275mg inject 1.1 [facility] esterone,PF 1-09 mL under ity of , 275 00:00: the skin [place] mg/1.1 mL 00 weekly. Medical injection Branch hydroxyprog 2023-0 Yes 275mg inject 1.1 [facility] esterone,PF 1-09 mL under ity of , 275 00:00: the skin [place] mg/1.1 mL 00 weekly. Medical injection Branch hydroxyprog 2023-0 Yes [id number] 275mg inject 1.1 [facility] esterone,PF 1-09 mL under ity of , 275 00:00: the skin [place] mg/1.1 mL 00 weekly. Medical injection Branch hydroxyprog 2023-0 Yes 275mg inject 1.1 [facility] esterone,PF 1-09 mL under ity of , 275 00:00: the skin [place] mg/1.1 mL 00 weekly. Medical injection Branch hydroxyprog 2023-0 Yes [id number] 275mg inject 1.1 [facility] ester[facility],PF 1-09 mL under ity of , 275 00:00: the skin [place] mg/1.1 mL 00 weekly. Medical injection Branch hydroxyprog 2023-0 Yes 275mg inject 1.1 [facility] esterone,PF 1-09 mL under ity of , 275 00:00: the skin [place] mg/1.1 mL 00 weekly. Medical injection Branch hydroxyprog 2023-0 Yes [id number] 275mg inject 1.1 [facility] esterone,PF 1-09 mL under ity of , 275 00:00: the skin [place] mg/1.1 mL 00 weekly. Medical injection Branch hydroxyprog 2023-0 Yes 275mg inject 1.1 [facility] esterone,PF 1-09 mL under ity of , 275 00:00: the skin [place] mg/1.1 mL 00 weekly. Medical injection Branch hydroxyprog 2023-0 Yes [id number] 275mg inject 1.1 [facility] esterone,PF 1-09 mL under ity of , 275 00:00: the skin [place] mg/1.1 mL 00 weekly. Medical injection Branch hydroxyprog 2023-0 Yes 275mg inject 1.1 [facility] esterone,PF 1-09 mL under ity of , 275 00:00: the skin [place] mg/1.1 mL 00 weekly. Medical injection Branch hydroxyprog 2023-0 Yes [id number] 275mg inject 1.1 [facility] esterone,PF 1-09 mL under ity of , 275 00:00: the skin [place] mg/1.1 mL 00 weekly. Medical injection Branch hydroxyprog 2023-0 Yes 275mg inject 1.1 [facility] esterone,PF 1-09 mL under ity of , 275 00:00: the skin [place] mg/1.1 mL 00 weekly. Medical injection Branch hydroxyprog 2023-0 Yes [id number] 275mg inject 1.1 [facility] esterone,PF 1-09 mL under ity of , 275 00:00: the skin [place] mg/1.1 mL 00 weekly. Medical injection Branch hydroxyprog 2023-0 Yes 275mg inject 1.1 [facility] esterone,PF 1-09 mL under ity of , 275 00:00: the skin [place] mg/1.1 mL 00 weekly. Medical injection Branch hydroxyprog 2023-0 Yes [id number] 275mg inject 1.1 [facility] esterone,PF 1-09 mL under ity of , 275 00:00: the skin [place] mg/1.1 mL 00 weekly. Medical injection Branch hydroxyprog 2023-0 Yes 275mg inject 1.1 [facility] esterone,PF 1-09 mL under ity of , 275 00:00: the skin [place] mg/1.1 mL 00 weekly. Medical injection Branch hydroxyprog 2023-0 Yes [id number] 275mg inject 1.1 [facility] esterone,PF 1-09 mL under ity of , 275 00:00: the skin [place] mg/1.1 mL 00 weekly. Medical injection Branch hydroxyprog 2023-0 Yes 275mg inject 1.1 [facility] esterone,PF 1-09 mL under ity of , 275 00:00: the skin [place] mg/1.1 mL 00 weekly. Medical injection Branch hydroxyprog 2023-0 Yes [id number] 275mg inject 1.1 [facility] esterone,PF 1-09 mL under ity of , 275 00:00: the skin [place] mg/1.1 mL 00 weekly. Medical injection Branch hydroxyprog 2023-0 Yes 275mg inject 1.1 [facility] esterone,PF 1-09 mL under ity of , 275 00:00: the skin [place] mg/1.1 mL 00 weekly. Medical injection Branch hydroxyprog 2023-0 Yes [id number] 275mg inject 1.1 [facility] esterone,PF 1-09 mL under ity of , 275 00:00: the skin [place] mg/1.1 mL 00 weekly. Medical injection Branch hydroxyprog 2023-0 Yes 275mg inject 1.1 [facility] esterone,PF 1-09 mL under ity of , 275 00:00: the skin [place] mg/1.1 mL 00 weekly. Medical injection Branch hydroxyprog 2023-0 Yes [id number] 275mg inject 1.1 [facility] esterone,PF 1-09 mL under ity of , 275 00:00: the skin [place] mg/1.1 mL 00 weekly. Medical injection Branch hydroxyprog 2023-0 Yes 275mg inject 1.1 [facility] esterone,PF 1-09 mL under ity of , 275 00:00: the skin [place] mg/1.1 mL 00 weekly. Medical injection Branch hydroxyprog 2023-0 Yes [id number] 275mg inject 1.1 [facility] esterone,PF 1-09 mL under ity of , 275 00:00: the skin [place] mg/1.1 mL 00 weekly. Medical injection Branch hydroxyprog 2023-0 2023- No 275mg inject 1.1 [facility] esterone,PF 1-09 05-25 mL under ity of , 275 00:00: 00:00 the skin [place] mg/1.1 mL 00 :00 weekly. Medical injection Branch hydroxyprog 2023-0 2023- No [id number] 275mg inject 1.1 [facility] esterone,PF 1- 05-25 mL under ity of , 275 00:00: 00:00 the skin [place] mg/1.1 mL 00 :00 weekly. Medical injection Branch hydroxyprog 2022- No 275mg inject 1.1 [facility] esterone,PF 1- 05-25 mL under ity of , 275 00:00: 00:00 the skin [place] mg/1.1 mL 00 :00 weekly. Medical injection Branch hydroxyprog 2022- No [id number] 275mg inject 1.1 [facility] esterone,PF - 05-25 mL under ity of , 275 00:00: 00:00 the skin [place] mg/1.1 mL 00 :00 weekly. Medical injection Branch hydroxyprog 2021-02 Yes [id number] 250mg 1 mL by [facility] esterone Intramus[facility] ity o f caproate, 00:00: lar route Jamal as ppres, 250 00 weekly. Medica l mg/mL Branch injection hydroxyprog 2021-02- No [id number] 250mg 1 mL by [facility] esterone 03-07 [...] (1 mL) Branch injection hydroxyprog 2021-02 Yes [id number] 250mg 1 mL by [employer] esterone 2-15 Intramuscu ity o f 250 mg/mL 00:00: lar route [place] as injection 00 weekly. Medical Branch hydroxyprog 2021-02 Yes [id number] 250mg 1 mL by [employer] esterone 2-15 Intramuscu ity o f 250 mg/mL 00:00: lar route [place] as injection 00 weekly. Medical Branch hydroxyprog 2021-02- No [id number] 250mg 1 mL by [employer] esterone 2-15 -09 Intramuscu ity of 250 [...] 25/iron 0-13 mouth. ity of fum/folic/d 09:26: [facility] 35 Medical (-1 Branch ORAL) 2021-02 Yes Take by Univer s 25/iron 0-13 mouth. ity of fum/folic/d 09:26: [facility] 35 Medical (-1 Branch ORAL) 2021-02 Yes Take by Univer s 25/iron 0-13 mouth. ity of fum/folic/d 09:26: [facility] 35 Medical (-1 Branch ORAL) 2021-02 Yes Take by Univer s 25/iron 0-13 mouth. ity of fum/folic/d 09:26: [facility] 35 Medical (-1 Branch ORAL) 2021-02 Yes Take by Univer s 25/iron 0-13 mouth. ity of fum/folic/d 09:26: [facility] 35 Medical (-1 Branch ORAL) 2021-02 Yes Take by Univer s 25/iron 0-13 mouth. ity of fum/folic/d 09:26: [facility] 35 Medical (-1 Branch ORAL) 2021-02 Yes Take by Univer s 25/iron 0-13 mouth. ity of fum/folic/d 09:26: [facility] 35 Medical (-1 Branch ORAL) 2021-02 Yes Take by Univer s 25/iron 0-13 mouth. ity of fum/folic/d 09:26: [facility] 35 Medical (-1 Branch ORAL) 2021-02 Yes Take by Univer s 25/iron 0-13 mouth. ity of fum/folic/d 09:26: [facility] 35 Medical (-1 Branch ORAL) 2021-02 Yes Take by Univer s 25/iron 0-13 mouth. ity of fum/folic/d 09:26: [facility] 35 Medical (-1 Branch ORAL) 2021-02 Yes Take by Univer s 25/iron 0-13 mouth. ity of fum/folic/d 09:26: [facility] 35 Medical (-1 Branch ORAL) 2021-02 Yes Take by Univer s 25/iron 0-13 mouth. ity of fum/folic/d 09:26: [facility] 35 Medical (-1 Branch ORAL) 2021-02 Yes Take by Univer s 25/iron 0-13 mouth. ity of fum/folic/d 09:26: [facility] 35 Medical (-1 Branch ORAL) 2021-02 Yes Take by Univer s 25/iron 0-13 mouth. ity of fum/folic/d 09:26: [facility] 35 Medical (-1 Branch ORAL) 2021-02 Yes Take by Univer s 25/iron 0-13 mouth. ity of fum/folic/d 09:26: [facility] 35 Medical (-1 Branch ORAL) 2021-02 Yes Take by Univer s 25/iron 0-13 mouth. ity of fum/folic/d 09:26: [facility] 35 Medical (-1 Branch ORAL) 2021-02 Yes Take by Univer s 25/iron 0-13 mouth. ity of fum/folic/d 09:26: [facility] 35 Medical (-1 Branch ORAL) 2021-02 Yes Take by Univer s 25/iron 0-13 mouth. ity of fum/folic/d 09:26: [facility] 35 Medical (-1 Branch ORAL) 2021-02 Yes Take by Univer s 25/iron 0-13 mouth. ity of fum/folic/d 09:26: [facility] 35 Medical (-1 Branch ORAL) 2021-02 Yes Take by Univer s 25/iron 0-13 mouth. ity of fum/folic/d 09:26: [facility] 35 Medical (-1 Branch ORAL) 2021-02 Yes Take by Univer s 25/iron 0-13 mouth. ity of fum/folic/d 09:26: [facility] 35 Medical (-1 Branch ORAL) 2021-02 Yes Take by Univer s 25/iron 0-13 mouth. ity of fum/folic/d 09:26: [facility] [facility] Medical (-1 Branch ORAL) 2021-02 Yes Take by Univer s 25/iron 0-13 mouth. ity of fum/folic/d 09:26: [facility] 35 Medical (-1 Branch ORAL) 2021-02 Yes Take by Univer s 25/iron 0-13 mouth. ity of fum/folic/d 09:26: [facility] 35 Medical (-1 Branch ORAL) 2021-02 Yes Take by Univer s 25/iron 0-13 mouth. ity of fum/folic/d 09:26: [facility] 35 Medical (-1 Branch ORAL) 2021-02 Yes Take by Univer s 25/iron 0-13 mouth. ity of fum/folic/d 09:26: [place] [id number] Medical (-1 Branch ORAL) 2021-02 Yes Take by Univer s 25/iron 0-13 mouth. ity of fum/folic/d 09:26: [place] [id number] Medical (-1 Branch ORAL) 2021-02 Yes Take by Univer s 25/iron 0-13 mouth. ity of fum/folic/d 09:26: [place] [id number] Medical (-1 Branch ORAL) 2021-02 Yes Take by Univer s 25/iron 0-13 mouth. ity of fum/folic/d 09:26: [place] [id number] Medical (-1 Branch ORAL) 2021-02 Yes Take by Univer s 25/iron 0-13 mouth. ity of fum/folic/d 09:26: [place] [id number] Medical (-1 Branch ORAL) 2021-02 Yes Take by Univer s 25/iron 0-13 mouth. ity of fum/folic/d 09:26: [facility] 35 Medical (-1 Branch ORAL) 2021-02 Yes Take by Univer s 25/iron 0-13 mouth. ity of fum/folic/d 09:26: [facility] 35 Medical (-1 Branch ORAL) 2021-02 Yes Take by Univer s 25/iron 0-13 mouth. ity of fum/folic/d 09:26: [facility] 35 Medical (-1 Branch ORAL) 2021-02 Yes Take by Univer s 25/iron 0-13 mouth. ity of fum/folic/d 09:26: [facility] 35 Medical (-1 Branch ORAL) 2021-02 [...] 0-13 mouth. ity of fum/folic/d 09:26: [facility] Medical (-1 Branch ORAL) 2021-02 Yes Take by Univer s 25/iron 0-13 mouth. ity of fum/folic/d 09:26: [facility] Medical (-1 Branch ORAL) 2021-02 Yes Take by Univer s 25/iron 0-13 mouth. ity of fum/folic/d 09:26: [facility] Medical (-1 Branch ORAL) 2021-02 Yes Take by Univer s 25/iron 0-13 mouth. ity of fum/folic/d 09:26: [facility] Medical (-1 Branch ORAL) PROAIR HFA Yes [...] mcg/actuati 00:00: [place] on inhaler Medical Branch [facility] HFA Yes Univers 90 8-30 ity of mcg/actuati 00:00: [place] on inhaler Medical Branch PROAIR HFA Yes Univers 90 8-30 ity of mcg/actuati 00:00: [place] on inhaler Medical Branch PROAIR HFA Yes Univers 90 8-30 ity of mcg/actuati 00:00: [place] on inhaler Medical Branch PROAIR HFA Yes Univers 90 8-30 ity of mcg/actuati 00:00: [place] on inhaler Medical Branch [facility] HFA Yes Univers 90 8-30 ity of mcg/actuati 00:00: [place] on inhaler Medical Branch PROAIR HFA Yes Univers 90 8-30 ity of mcg/actuati 00:00: [place] on inhaler 00 Medical Branch [facility] HFA Yes Univers 90 8-30 ity of mcg/actuati 00:00: [place] on inhaler Medical Branch PROAIR HFA Yes Univers 90 8-30 ity of mcg/actuati 00:00: [place] on inhaler 00 Medical Branch [facility] HFA Yes Univers 90 8-30 ity of mcg/actuati 00:00: [place] on inhaler Medical Branch PROAIR HFA 0 Yes Univers 90 8-30 ity of mcg/actuati 00:00: [place] on inhaler 00 Medical Branch PROAIR HFA 0 3- No Univer s 90 8-30 05-27 ity of mcg/actuati 00:00: 00:00 [place] on inhaler 00 :00 Medical Branch norgestimat 2021-0 Yes [id number] 1{tbl} Take 1 Univers e-ethinyl 8-16 tablet by ity o f estradioL 00:[place]TRI-SPRINT 00 the Medical ) morning. Branch 0.18/0.215/ 0.25 mg-35 mcg (28) tablet norgestimat 2021- No [id number] 1{tbl} Take 1 Univers e-ethinyl 8-16 10-13 tablet by ity of estradioL 00:00: 00:00 mouth in [place] (TRI-SPRINT 00 :00 the Medical EC) morning. Branch 0.18/0.215/ 0.25 mg-35 mcg (28) tablet norgestimat 2020-02 Yes [id number] 1{tbl} Take 1 Univers e-ethinyl 1-22 tablet by ity o f estradioL 00:00: mouth [place] (ORTHO 00 daily. [facility] [place] [id number] 0.18/0.215/ 0.25 mg-35 mcg (28) tablet norgestimat 2020-02- No [id number] 1{tbl} Take 1 Univers e-ethinyl 1-22 10-13 tablet by ity of estradioL 00:00: 00:00 mouth [place] (ORTHO 00 :00 [facility]. [facility] 0.18/0.215/ 0.25 mg-35 mcg (28) tablet norgestimat 2020-02- No [id number] 1{tbl} Take 1 Univers e-ethinyl 1-22 10-13 tablet by ity of estradioL 00:00: 00:00 mouth [place] (ORTHO 00 :00 daily. [facility] [address],) 0.18/0.215/ 0.25 mg-35 mcg (28) tablet Immunizations Ordered Immunization Filled Date Status Comments Sour ce Name Immunization Name [facility] 2022-05-26 Completed University of 00:00:[address] [facility] TDAP 2022-05-26 Completed University of 00:00:[address] [facility] TDAP 2022-05-26 Completed University of 00:00: [facility] TDAP 2022-05-26 Completed University of 00:00: [facility] TDAP 2022-05-26 Completed University of 00:00:[address] [facility] TDAP 2022-05-26 Completed University of 00:00:[address] [facility] TDAP 2022-05-26 Completed University of 00:00:[address] [facility] TDAP 2022-05-26 Completed University of 00:00:00 [facility] TDAP 2022-05-26 Completed University of 00:00:00 [place] [facility] TDAP 2022-05-26 Completed University of 00:00:00 [place] [facility] TDAP 2022-05-26 Completed University of 00:00:00 [facility] TDAP 2022-05-26 Completed University of 00:00:00 [facility] TDAP 2022-05-26 Completed University of 00:00:00 [facility] TDAP 2022-05-26 Completed University of 00:00:00 [facility] TDAP 2022-05-26 Completed University of 00:00:00 [facility] TDAP 2022-05-26 Completed University of 00:00:00 [place] [facility] TDAP 2022-05-26 Completed University of 00:00:[address] [facility] TDAP 2022-05-26 Completed University of 00:00:[address] [facility] TDAP 2022-05-26 Completed University of 00:00:00 [facility] TDAP 2022-05-26 Completed University of 00:00:00 [facility] TDAP 2022-05-26 Completed University of 00:00:00 [facility] TDAP 2022-05-26 Completed University of 00:00:00 [facility] TDAP 2022-05-26 Completed University of 00:00:[address] [facility] TDAP 2022-05-26 Completed University of 00:00:[address] [facility] TDAP 2022-05-26 Completed University of 00:00:[address] [facility] TDAP 2022-05-26 Completed University of 00:00:[address] [facility] TDAP 2020-06-09 Completed University of 00:00:00 [facility] TDAP 2020-06-09 Completed University of 00:00:00 [place] [facility] TDAP 2020-06-09 Completed University of 00:00:00 [place] [facility] TDAP 2020-06-09 Completed University of 00:00:00 [place] [facility] TDAP 2020-06-09 Completed University of 00:00:[address] [facility] TDAP 2020-06-09 Completed University of 00:00:00 [facility] TDAP 2020-06-09 Completed University of 00:00:00 [place] [facility] TDAP 2020-06-09 Completed University of 00:00:00 [place] [facility] TDAP 2020-06-09 Completed University of 00:00:00 [place] [facility] TDAP 2020-06-09 Completed University of 00:00:00 [place] [facility] TDAP 2020-06-09 Completed University of 00:00:00 [place] [facility] TDAP 2020-06-09 Completed University of 00:00:00 [place] [facility] TDAP 2020-06-09 Completed University of 00:00:00 [place] [facility] TDAP 2020-06-09 Completed University of 00:00:00 [place] [facility] TDAP 2020-06-09 Completed University of 00:00:00 [place] [facility] TDAP 2020-06-09 Completed University of 00:00:00 [place] [facility] TDAP 2020-06-09 Completed University of 00:00:00 [place] [facility] TDAP 2020-06-09 Completed University of 00:00:00 [place] [facility] TDAP 2020-06-09 Completed University of 00:00:00 [place] [facility] TDAP 2020-06-09 Completed University of 00:00:00 [place] [facility] TDAP 2020-06-09 Completed University of 00:00:00 [place] [facility] TDAP 2020-06-09 Completed University of 00:00:00 [facility] TDAP 2020-06-09 Completed University of 00:00:00 [place] [facility] TDAP 2020-06-09 Completed University of 00:00:00 [place] [facility] TDAP 2020-06-09 Completed University of 00:00:00 [facility] TDAP 2020-06-09 Completed University of 00:00:00 [place] [facility] TDAP 2020-06-09 Completed University of 00:00:00 [place] [facility] TDAP 2020-06-09 Completed University of 00:00:00 [place] [facility] TDAP 2020-06-09 Completed University of 00:00:00 [place] [facility] TDAP 2020-06-09 Completed University of 00:00:00 [place] [facility] TDAP 2020-06-09 Completed University of 00:00:00 [place] [facility] TDAP 2020-06-09 Completed University of 00:00:00 [place] [facility] TDAP 2020-06-09 Completed University of 00:00:00 [place] [facility] TDAP 2020-06-09 Completed University of 00:00:00 [place] [facility] TDAP 2020-06-09 Completed University of 00:00:00 [place] [facility] TDAP 2020-06-09 Completed University of 00:00:00 [place] [facility] TDAP 2020-06-09 Completed University of 00:00:00 [place] [facility] TDAP 2020-06-09 Completed University of 00:00:00 [place] [facility] TDAP 2020-06-09 Completed University of 00:00:00 [place] [facility] TDAP 2020-06-09 Completed University of 00:00:00 [place] [facility] TDAP 2020-06-09 Completed University of 00:00:00 [place] [facility] TDAP 2020-06-09 Completed University of 00:00:00 [place] [facility] TDAP 2020-06-09 Completed University of 00:00:00 [place] [facility] TDAP 2020-06-09 Completed University of 00:00:00 [place] [facility] TDAP 2020-06-09 Completed University of 00:00:00 [place] [facility] TDAP 2020-06-09 Completed University of 00:00:00 [place] [facility] TDAP 2020-06-09 Completed University of 00:00:00 [facility] TDAP 2020-06-09 Completed University of 00:00:00 [place] [facility] TDAP 2020-06-09 Completed University of 00:00:00 [place] [facility] TDAP 2020-06-09 Completed University of 00:00:00 [place] [facility] TDAP 2020-06-09 Completed University of 00:00:00 [place] [facility] TDAP 2020-06-09 Completed University of 00:00:00 [place] [facility] TDAP 2020-06-09 Completed University of 00:00:00 [place] [facility] TDAP 2020-06-09 Completed University of 00:00:00 [place] [facility] TDAP 2020-06-09 Completed University of 00:00:00 [place] [facility] TDAP 2020-06-09 Completed University of 00:00:00 [place] [facility] TDAP 2020-06-09 Completed University of 00:00:00 [place] [facility] TDAP 2020-06-09 Completed University of 00:00:00 [place] [facility] TDAP 2020-06-09 Completed University of 00:00:00 [place] [facility] TDAP 2020-06-09 Completed University of 00:00:[address] [facility] TDAP 2020-06-09 Completed University of 00:00:00 [place] [facility] TDAP 2020-06-09 Completed University of 00:00:00 [place] [facility] TDAP 2020-06-09 Completed University of 00:00:[address] [facility] Influenza Virus 2020-01-21 Completed Universit [...] y of Vaccine Quad .5 mL 00:00:00 [place] [facility] 6+ MO Branch Influenza Virus 2020-01-21 Completed Universit y of Vaccine Quad .5 mL 00:00:00 [place] [facility] IM 6+ MO Branch Influenza Virus 2020-01-21 Completed Universit y of Vaccine Quad .5 mL 00:00:00 [place] [facility] 6+ MO Branch Meningococcal 2018-10-18 Completed University of Vaccine 00:00:[address] [facility] TDAP 2018-10-18 Completed University of 00:00:[address] [facility] Meningococcal B, OMV 2018-10-18 Completed Univ ersity of 00:00:[address] [facility] Meningococcal 2018-10-18 Completed University of Vaccine 00:00:[address] [facility] TDAP 2018-10-18 Completed University of 00:00:[address] [facility] Meningococcal B, OMV 2018-10-18 Completed Univ ersity of 00:00:[address] [facility] Meningococcal 2018-10-18 Completed University of Vaccine 00:00:[address] [facility] TDAP 2018-10-18 Completed University of 00:00:[address] [facility] Meningococcal B, OMV 2018-10-18 Completed Univ ersity of 00:00:00 [facility] Meningococcal 2018-10-18 Completed University of Vaccine 00:00:[address] [facility] TDAP 2018-10-18 Completed University of 00:00:[address] [facility] Meningococcal B, OMV 2018-10-18 Completed Univ ersity of 00:00:[address] [facility] Meningococcal 2018-10-18 Completed University of Vaccine 00:00:[address] [facility] TDAP 2018-10-18 Completed University of 00:00:[address] [facility] Meningococcal B, OMV 2018-10-18 Completed Univ ersity of 00:00:[address] [facility] Meningococcal 2018-10-18 Completed University of Vaccine 00:00:[address] [facility] TDAP 2018-10-18 Completed University of 00:00:[address] [facility] Meningococcal B, OMV 2018-10-18 Completed Univ ersity of 00:00:[address] [facility] Meningococcal 2018-10-18 Completed University of Vaccine 00:00:[address] [facility] TDAP 2018-10-18 Completed University of 00:00:[address] [facility] Meningococcal B, OMV 2018-10-18 Completed Univ ersity of 00:00:[address] [facility] Meningococcal 2018-10-18 Completed University of Vaccine 00:00:[address] [facility] TDAP 2018-10-18 Completed University of 00:00:[address] [facility] Meningococcal B, OMV 2018-10-18 Completed Univ ersity of 00:00:[address] [facility] Meningococcal 2018-10-18 Completed University of Vaccine 00:00:[address] [facility] TDAP 2018-10-18 Completed University of 00:00:[address] [facility] Meningococcal B, OMV 2018-10-18 Completed Univ ersity of 00:00:[address] [facility] Meningococcal 2018-10-18 Completed University of Vaccine 00:00:[address] [facility] TDAP 2018-10-18 Completed University of 00:00:[address] [facility] Meningococcal B, OMV 2018-10-18 Completed Univ ersity of 00:00:[address] [facility] Meningococcal 2018-10-18 Completed University of Vaccine 00:00:00 [facility] TDAP 2018-10-18 Completed University of 00:00:00 [facility] Meningococcal B, OMV 2018-10-18 Completed Univ ersity of 00:00:00 [place] [facility] Meningococcal 2018-10-18 Completed University of Vaccine 00:00:[address] [facility] TDAP 2018-10-18 Completed University of 00:00:00 [facility] Meningococcal B, OMV 2018-10-18 Completed Univ ersity of 00:00:00 [facility] Meningococcal 2018-10-18 Completed University of Vaccine 00:00:[address] [facility] TDAP 2018-10-18 Completed University of 00:00:00 [facility] Meningococcal B, OMV 2018-10-18 Completed Univ ersity of 00:00:00 [facility] Meningococcal 2018-10-18 Completed University of Vaccine 00:00:[address] [facility] TDAP 2018-10-18 Completed University of 00:00:[address] [facility] Meningococcal B, OMV 2018-10-18 Completed Univ ersity of 00:00:[address] [facility] Meningococcal 2018-10-18 Completed University of Vaccine 00:00:[address] [facility] TDAP 2018-10-18 Completed University of 00:00:[address] [facility] Meningococcal B, OMV 2018-10-18 Completed Univ ersity of 00:00:[address] [facility] Meningococcal 2018-10-18 Completed University of Vaccine 00:00:[address] [facility] TDAP 2018-10-18 Completed University of 00:00:[address] [facility] Meningococcal B, OMV 2018-10-18 Completed Univ ersity of 00:00:00 [facility] Meningococcal 2018-10-18 Completed University of Vaccine 00:00:[address] [facility] TDAP 2018-10-18 Completed University of 00:00:00 [facility] Meningococcal B, OMV 2018-10-18 Completed Univ ersity of 00:00:00 [facility] Meningococcal 2018-10-18 Completed University of Vaccine 00:00:00 [facility] TDAP 2018-10-18 Completed University of 00:00:[address] [facility] Meningococcal B, OMV 2018-10-18 Completed Univ ersity of 00:00:00 [place] [facility] Meningococcal 2018-10-18 Completed University of Vaccine 00:00:[address] [facility] TDAP 2018-10-18 Completed University of 00:00:[address] [facility] Meningococcal B, OMV 2018-10-18 Completed Univ ersity of 00:00:00 [facility] Meningococcal 2018-10-18 Completed University of Vaccine 00:00:00 [facility] TDAP 2018-10-18 Completed University of 00:00:[address] [facility] Meningococcal B, OMV 2018-10-18 Completed Univ ersity of 00:00:[address] [facility] Meningococcal 2018-10-18 Completed University of Vaccine 00:00:00 [facility] TDAP 2018-10-18 Completed University of 00:00:[address] [facility] Meningococcal B, OMV 2018-10-18 Completed Univ ersity of 00:00:[address] [facility] Meningococcal 2018-10-18 Completed University of Vaccine 00:00:[address] [facility] TDAP 2018-10-18 Completed University of 00:00:[address] [facility] Meningococcal B, OMV 2018-10-18 Completed Univ ersity of 00:00:[address] [facility] Meningococcal 2018-10-18 Completed University of Vaccine 00:00:[address] [facility] TDAP 2018-10-18 Completed University of 00:00:[address] [facility] Meningococcal B, OMV 2018-10-18 Completed Univ ersity of 00:00:[address] [facility] Meningococcal 2018-10-18 Completed University of Vaccine 00:00:[address] [facility] TDAP 2018-10-18 Completed University of 00:00:[address] [facility] Meningococcal B, OMV 2018-10-18 Completed Univ ersity of 00:00:[address] [facility] Meningococcal 2018-10-18 Completed University of Vaccine 00:00:[address] [facility] TDAP 2018-10-18 Completed University of 00:00:[address] [facility] Meningococcal B, OMV 2018-10-18 Completed Univ ersity of 00:00:[address] [facility] Meningococcal 2018-10-18 Completed University of Vaccine 00:00:[address] [facility] TDAP 2018-10-18 Completed University of 00:00:[address] [facility] Meningococcal B, OMV 2018-10-18 Completed Univ ersity of 00:00:00 [facility] Meningococcal 2018-10-18 Completed University of Vaccine 00:00:00 [facility] TDAP 2018-10-18 Completed University of 00:00:00 [facility] Meningococcal B, OMV 2018-10-18 Completed Univ ersity of 00:00:00 [facility] Meningococcal 2018-10-18 Completed University of Vaccine 00:00:00 [place] [facility] TDAP 2018-10-18 Completed University of 00:00:00 [facility] Meningococcal B, OMV 2018-10-18 Completed Univ ersity of 00:00:00 [facility] Meningococcal 2018-10-18 Completed University of Vaccine 00:00:00 [facility] TDAP 2018-10-18 Completed University of 00:00:00 [facility] Meningococcal B, OMV 2018-10-18 Completed Univ ersity of 00:00:00 [facility] Meningococcal 2018-10-18 Completed University of Vaccine 00:00:00 [place] [facility] TDAP 2018-10-18 Completed University of 00:00:[address] [facility] Meningococcal B, OMV 2018-10-18 Completed Univ ersity of 00:00:00 [facility] Meningococcal 2018-10-18 Completed University of Vaccine 00:00:00 [facility] TDAP 2018-10-18 Completed University of 00:00:00 [facility] Meningococcal B, OMV 2018-10-18 Completed Univ ersity of 00:00:00 [facility] Meningococcal 2018-10-18 Completed University of Vaccine 00:00:00 [facility] TDAP 2018-10-18 Completed University of 00:00:[address] [facility] Meningococcal B, OMV 2018-10-18 Completed Univ ersity of 00:00:00 [facility] Meningococcal 2018-10-18 Completed University of Vaccine 00:00:00 [facility] TDAP 2018-10-18 Completed University of 00:00:00 [facility] Meningococcal B, OMV 2018-10-18 Completed Univ ersity of 00:00:00 [facility] Meningococcal 2018-10-18 Completed University of Vaccine 00:00:00 [facility] TDAP 2018-10-18 Completed University of 00:00:00 [facility] Meningococcal B, OMV 2018-10-18 Completed Univ ersity of 00:00:00 [facility] Meningococcal 2018-10-18 Completed University of Vaccine 00:00:00 [facility] TDAP 2018-10-18 Completed University of 00:00:00 [facility] Meningococcal B, OMV 2018-10-18 Completed Univ ersity of 00:00:[address] [facility] Meningococcal 2018-10-18 Completed University of Vaccine 00:00:00 [facility] TDAP 2018-10-18 Completed University of 00:00:[address] [facility] Meningococcal B, OMV 2018-10-18 Completed Univ ersity of 00:00:[address] [facility] Meningococcal 2018-10-18 Completed University of Vaccine 00:00:00 [facility] TDAP 2018-10-18 Completed University of 00:00:[address] [facility] Meningococcal B, OMV 2018-10-18 Completed Univ ersity of 00:00:[address] [facility] Meningococcal 2018-10-18 Completed University of Vaccine 00:00:00 [facility] TDAP 2018-10-18 Completed University of 00:00:[address] [facility] Meningococcal B, OMV 2018-10-18 Completed Univ ersity of 00:00:[address] [facility] Meningococcal 2018-10-18 Completed University of Polysaccharide 00:00:00 [place] [facility] (groups A, C, Y and Branc h W-135) conjugate vaccine (MCV4P) Meningococcal 2018-10-18 Completed University of Vaccine 00:00:[address] [facility] TDAP 2018-10-18 Completed University of 00:00:[address] [facility] Meningococcal B, OMV 2018-10-18 Completed Univ ersity of 00:00:[address] [facility] Meningococcal 2018-10-18 Completed University of Polysaccharide 00:00:00 [place] [facility] (groups A, C, Y and Branc h W-135) conjugate vaccine (MCV4P) Meningococcal 2018-10-18 Completed University of Vaccine 00:00:[address] [facility] TDAP 2018-10-18 Completed University of 00:00:[address] [facility] Meningococcal B, OMV 2018-10-18 Completed Univ ersity of 00:00:[address] [facility] Meningococcal 2018-10-18 Completed University of Polysaccharide 00:00:00 [place] [facility] (groups A, C, Y and Branc h W-135) conjugate vaccine (MCV4P) Meningococcal 2018-10-18 Completed University of Vaccine 00:00:[address] [facility] TDAP 2018-10-18 Completed University of 00:00:[address] [facility] Meningococcal B, OMV 2018-10-18 Completed Univ ersity of 00:00:[address] [facility] Meningococcal 2018-10-18 Completed University of Polysaccharide 00:00:00 [place] [facility] (groups A, C, Y and Branc h W-135) conjugate vaccine (MCV4P) Meningococcal 2018-10-18 Completed University of Vaccine 00:00:[address] [facility] TDAP 2018-10-18 Completed [facility] 00:00:[address] [facility] Meningococcal B, OMV 2018-10-18 Completed [facility] ersity of 00:00:[address] [facility] Meningococcal 2018-10-18 Completed [facility] Polysaccharide 00:00:00 [facility] (groups A, C, Y and Branc h W-135) conjugate vaccine (MCV4P) Meningococcal 2018-10-18 Completed [facility] of Vaccine 00:00:[address] [facility] TDAP 2018-10-18 Completed [facility] of 00:00:[address] [facility] Meningococcal B, OMV 2018-10-18 Completed [facility] ersity of 00:00:[address] [facility] Meningococcal 2018-10-18 Completed [facility] Polysaccharide 00:00:00 [facility] (groups A, C, Y and Branc h W-135) conjugate vaccine (MCV4P) Meningococcal 2018-10-18 Completed [facility] of Vaccine 00:00:[address] [facility] TDAP 2018-10-18 Completed [facility] of 00:00:[address] [facility] Meningococcal B, OMV 2018-10-18 Completed [facility] ersity of 00:00:[address] [facility] Meningococcal 2018-10-18 Completed [facility] Polysaccharide 00:00:00 [facility] (groups A, C, Y and Branc h W-135) conjugate vaccine (MCV4P) Meningococcal 2018-10-18 Completed [facility] of Vaccine 00:00:[address] [facility] TDAP 2018-10-18 Completed [facility] of 00:00:[address] [facility] Meningococcal B, OMV 2018-10-18 Completed [facility] ersity of 00:00:[address] [facility] Meningococcal 2018-10-18 Completed [facility] Polysaccharide 00:00:00 [facility] (groups A, C, Y and Branc h W-135) conjugate vaccine (MCV4P) Meningococcal 2018-10-18 Completed [facility] of Vaccine 00:00:[address] [facility] TDAP 2018-10-18 Completed [facility] of 00:00:[address] [facility] Meningococcal B, OMV 2018-10-18 Completed [facility] ersity of 00:00:[address] [facility] Meningococcal 2018-10-18 Completed [facility] Polysaccharide 00:00:00 [place] [facility] (groups A, C, Y and Branc h W-135) conjugate vaccine (MCV4P) Meningococcal 2018-10-18 Completed [facility] of Vaccine 00:00:[address] [facility] TDAP 2018-10-18 Completed [facility] of 00:00:[address] [facility] Meningococcal B, OMV 2018-10-18 Completed [facility] ersity of 00:00:[address] [facility] Meningococcal 2018-10-18 Completed [facility] Polysaccharide 00:00:00 [facility] (groups A, C, Y and Branc h W-135) conjugate vaccine (MCV4P) Meningococcal 2018-10-18 Completed [facility] of Vaccine 00:00:[address] [facility] TDAP 2018-10-18 Completed [facility] of 00:00:[address] [facility] Meningococcal B, OMV 2018-10-18 Completed [facility] ersity of 00:00:[address] [facility] Meningococcal 2018-10-18 Completed [facility] Polysaccharide 00:00:00 [facility] (groups A, C, Y and Branc h W-135) conjugate vaccine (MCV4P) Meningococcal 2018-10-18 Completed [facility] of Vaccine 00:00:[address] [facility] TDAP 2018-10-18 Completed [facility] of 00:00:[address] [facility] Meningococcal B, OMV 2018-10-18 Completed [facility] ersity of 00:00:[address] [facility] Meningococcal 2018-10-18 Completed [facility] Polysaccharide 00:00:00 [facility] (groups A, C, Y and Branc h W-135) conjugate vaccine (MCV4P) Meningococcal 2018-10-18 Completed [facility] of Vaccine 00:00:[address] [facility] TDAP 2018-10-18 Completed [facility] of 00:00:[address] [facility] Meningococcal B, OMV 2018-10-18 Completed [facility] ersity of 00:00:[address] [facility] Meningococcal 2018-10-18 Completed [facility] Polysaccharide 00:00:00 [facility] (groups A, C, Y and Branc h W-135) conjugate vaccine (MCV4P) Meningococcal 2018-10-18 Completed [facility] of Vaccine 00:00:[address] [facility] TDAP 2018-10-18 Completed [facility] of 00:00:[address] [facility] Meningococcal B, OMV 2018-10-18 Completed [facility] ers[facility] 00:00:00 [facility] Meningococcal 2018-10-18 Completed [facility] Polysaccharide 00:00:00 [place] [facility] (groups A, C, Y and Branc h W-135) conjugate vaccine (MCV4P) Meningococcal 2018-10-18 Completed [facility] of Vaccine 00:00:[address] [facility] TDAP 2018-10-18 Completed [facility] 00:00:00 [facility] Meningococcal B, OMV 2018-10-18 Completed [facility] ersity of 00:00:00 [facility] Meningococcal 2018-10-18 Completed [facility] Polysaccharide 00:00:00 [facility] (groups A, C, Y and Branc h W-135) conjugate vaccine (MCV4P) Meningococcal 2018-10-18 Completed [facility] of Vaccine 00:00:[address] [facility] TDAP 2018-10-18 Completed [facility] of 00:00:[address] [facility] Meningococcal B, OMV 2018-10-18 Completed [facility] ersity of 00:00:[address] [facility] Meningococcal 2018-10-18 Completed [facility] Polysaccharide 00:00:00 [facility] (groups A, C, Y and Branc h W-135) conjugate vaccine (MCV4P) Meningococcal 2018-10-18 Completed [facility] of Vaccine 00:00:[address] [facility] TDAP 2018-10-18 Completed [facility] of 00:00:[address] [facility] Meningococcal B, OMV 2018-10-18 Completed [facility] ersity of 00:00:[address] [facility] Meningococcal 2018-10-18 Completed [facility] Polysaccharide 00:00:00 [facility] (groups A, C, Y and Branc h W-135) conjugate vaccine (MCV4P) Meningococcal 2018-10-18 Completed [facility] of Vaccine 00:00:[address] [facility] TDAP 2018-10-18 Completed [facility] 00:00:00 [facility] Meningococcal B, OMV 2018-10-18 Completed [facility] ersity of 00:00:00 [facility] Meningococcal 2018-10-18 Completed [facility] Polysaccharide 00:00:00 [facility] (groups A, C, Y and Branc h W-135) conjugate vaccine (MCV4P) Meningococcal 2018-10-18 Completed [facility] Vaccine 00:00:00 [facility] TDAP 2018-10-18 Completed [facility] 00:00:00 [facility] Meningococcal B, OMV 2018-10-18 Completed [facility] ersity of 00:00:00 [facility] Meningococcal 2018-10-18 Completed [facility] Polysaccharide 00:00:00 [facility] (groups A, C, Y and Branc h W-135) conjugate vaccine (MCV4P) Meningococcal 2018-10-18 Completed [facility] Vaccine 00:00:00 [facility] TDAP 2018-10-18 Completed [facility] 00:00:00 [facility] Meningococcal B, OMV 2018-10-18 Completed [facility] ersity of 00:00:00 [facility] Meningococcal 2018-10-18 Completed [facility] Polysaccharide 00:00:00 [facility] (groups A, C, Y and Branc h W-135) conjugate vaccine (MCV4P) Meningococcal 2018-10-18 Completed [facility] Vaccine 00:00:00 [facility] TDAP 2018-10-18 Completed [facility] of 00:00:[address] [facility] Meningococcal B, OMV 2018-10-18 Completed [facility] ersity of 00:00:00 [facility] Meningococcal 2018-10-18 Completed [facility] Polysaccharide 00:00:00 [facility] (groups A, C, Y and Branc h W-135) conjugate vaccine (MCV4P) Meningococcal 2018-10-18 Completed [facility] of Vaccine 00:00:[address] [facility] TDAP 2018-10-18 Completed [facility] of 00:00:[address] [facility] Meningococcal B, OMV 2018-10-18 Completed [facility] ersity [facility] 00:00:00 [facility] Meningococcal 2018-10-18 Completed [facility] Polysaccharide 00:00:00 [facility] (groups A, C, Y and Branc h W-135) conjugate vaccine (MCV4P) Meningococcal 2018-10-18 Completed [facility] of Vaccine 00:00:[address] [facility] TDAP 2018-10-18 Completed [facility] 00:00:00 [facility] Meningococcal B, OMV 2018-10-18 Completed [facility] ersity of 00:00:00 [facility] Meningococcal 2018-10-18 Completed [facility] Polysaccharide 00:00:00 [facility] (groups A, C, Y and Branc h W-135) conjugate vaccine (MCV4P) Meningococcal 2018-10-18 Completed [facility] Vaccine 00:00:00 [facility] TDAP 2018-10-18 Completed [facility] 00:00:00 [facility] Meningococcal B, OMV 2018-10-18 Completed [facility] ersity of 00:00:[address] [facility] Meningococcal 2018-10-18 Completed [facility] Polysaccharide 00:00:00 [facility] (groups A, C, Y and Branc h W-135) conjugate vaccine (MCV4P) Meningococcal 2018-10-18 Completed [facility] Vaccine 00:00:00 [facility] TDAP 2018-10-18 Completed [facility] of 00:00:[address] [facility] Meningococcal B, OMV 2018-10-18 Completed [facility] ersity of 00:00:[address] [facility] Meningococcal 2018-10-18 Completed [facility] Polysaccharide 00:00:00 [facility] (groups A, C, Y and Branc h W-135) conjugate vaccine (MCV4P) Meningococcal 2018-10-18 Completed [facility] of Vaccine 00:00:[address] [facility] TDAP 2018-10-18 Completed [facility] of 00:00:[address] [facility] Meningococcal B, OMV 2018-10-18 Completed [facility] ersity of 00:00:[address] [facility] Meningococcal 2018-10-18 Completed [facility] Polysaccharide 00:00:00 [facility] (groups A, C, Y and Branc h W-135) conjugate vaccine (MCV4P) DTAP 2006-10-25 Completed [facility] of 00:00:[address] [facility] Hepatitis A Adult 2006-10-25 Completed [facility] of 00:00:[address] [facility] Polio (IPV/OPV) 2006-10-25 Completed [facility] of 00:00:[address] [facility] DTAP 2006-10-25 Completed [facility] of 00:00:[address] [facility] Hepatitis A Adult 2006-10-25 Completed [facility] of 00:00:[address] [facility] Polio (IPV/OPV) 2006-10-25 Completed [facility] of 00:00:[address] [facility] DTAP 2006-10-25 Completed [facility] of 00:00:[address] [facility] Hepatitis A Adult 2006-10-25 Completed [facility] of 00:00:[address] [facility] Polio (IPV/OPV) 2006-10-25 Completed [facility] of 00:00:[address] [facility] DTAP 2006-10-25 Completed [facility] 00:00:[address] [facility] Hepatitis A Adult 2006-10-25 Completed [facility] 00:00:00 [facility] Polio (IPV/OPV) 2006-10-25 Completed [facility] of 00:00:00 [facility] DTAP 2006-10-25 Completed [facility] 00:00:00 [facility] Hepatitis A Adult 2006-10-25 Completed [facility] 00:00:00 [facility] Polio (IPV/OPV) 2006-10-25 Completed [facility] 00:00:00 [facility] DTAP 2006-10-25 Completed [facility] 00:00:00 [facility] Hepatitis A Adult 2006-10-25 Completed [facility] 00:00:00 [facility] Polio (IPV/OPV) 2006-10-25 Completed [facility] 00:00:00 [facility] DTAP 2006-10-25 Completed [facility] 00:00:00 [facility] Hepatitis A Adult 2006-10-25 Completed [facility] 00:00:00 [facility] Polio (IPV/OPV) 2006-10-25 Completed [facility] of 00:00:00 [facility] DTAP 2006-10-25 Completed [facility] 00:00:00 [facility] Hepatitis A Adult 2006-10-25 Completed [facility] 00:00:00 [facility] Polio (IPV/OPV) 2006-10-25 Completed [facility] 00:00:00 [facility] DTAP 2006-10-25 Completed [facility] 00:00:00 [facility] Hepatitis A Adult 2006-10-25 Completed [facility] 00:00:00 [facility] Polio (IPV/OPV) 2006-10-25 Completed [facility] 00:00:00 [facility] DTAP 2006-10-25 Completed [facility] 00:00:00 [facility] Hepatitis A Adult 2006-10-25 Completed [facility] 00:00:00 [facility] Polio (IPV/OPV) 2006-10-25 Completed [facility] 00:00:00 [facility] DTAP 2006-10-25 Completed [facility] 00:00:00 [facility] Hepatitis A Adult 2006-10-25 Completed [facility] 00:00:00 [facility] Polio (IPV/OPV) 2006-10-25 Completed [facility] of 00:00:00 [facility] DTAP 2006-10-25 Completed [facility] 00:00:00 [facility] Hepatitis A Adult 2006-10-25 Completed [facility] 00:00:00 [facility] Polio (IPV/OPV) 2006-10-25 Completed [facility] of 00:00:00 [facility] DTAP 2006-10-25 Completed [facility] 00:00:00 [facility] Hepatitis A Adult 2006-10-25 Completed [facility] of 00:00:00 [facility] Polio (IPV/OPV) 2006-10-25 Completed [facility] of 00:00:00 [facility] DTAP 2006-10-25 Completed [facility] 00:00:00 [facility] Hepatitis A Adult 2006-10-25 Completed [facility] of 00:00:00 [facility] Polio (IPV/OPV) 2006-10-25 Completed [facility] of 00:00:[address] [facility] DTAP 2006-10-25 Completed [facility] of 00:00:[address] [facility] Hepatitis A Adult 2006-10-25 Completed [facility] of 00:00:00 [facility] Polio (IPV/OPV) 2006-10-25 Completed [facility] of 00:00:00 [facility] DTAP 2006-10-25 Completed [facility] 00:00:00 [facility] Hepatitis A Adult 2006-10-25 Completed [facility] 00:00:00 [facility] Polio (IPV/OPV) 2006-10-25 Completed [facility] y of 00:00:00 [facility] DTAP 2006-10-25 Completed [facility] 00:00:00 [facility] Hepatitis A Adult 2006-10-25 Completed [facility] of 00:00:00 [facility] Polio (IPV/OPV) 2006-10-25 Completed [facility] of 00:00:00 [facility] DTAP 2006-10-25 Completed [facility] 00:00:00 [facility] Hepatitis A Adult 2006-10-25 Completed [facility] of 00:00:00 [facility] Polio (IPV/OPV) 2006-10-25 Completed [facility] of 00:00:00 [facility] DTAP 2006-10-25 Completed [facility] 00:00:00 [facility] Hepatitis A Adult 2006-10-25 Completed [facility] of 00:00:00 [facility] Polio (IPV/OPV) 2006-10-25 Completed [facility] of 00:00:00 [facility] DTAP 2006-10-25 Completed [facility] [...] (IPV/OPV) 2006-10-25 Completed [facility] of 00:00:00 [facility] DTAP 2006-10-25 Completed [facility] 00:00:00 [facility] Hepatitis A Adult 2006-10-25 Completed [facility] of 00:00:00 [facility] Polio (IPV/OPV) 2006-10-25 Completed [facility] of 00:00:00 [facility] DTAP 2006-10-25 Completed [facility] 00:00:00 [facility] Hepatitis A Adult 2006-10-25 Completed [facility] of 00:00:00 [facility] Polio (IPV/OPV) 2006-10-25 Completed [facility] of 00:00:00 [facility] DTAP 2006-10-25 Completed [facility] 00:00:00 [facility] Hepatitis A Adult 2006-10-25 Completed [facility] 00:00:00 [facility] Polio (IPV/OPV) 2006-10-25 Completed [facility] of 00:00:00 [facility] DTAP 2006-10-25 Completed [facility] 00:00:00 [facility] Hepatitis A Adult 2006-10-25 Completed [facility] 00:00:00 [facility] Polio (IPV/OPV) 2006-10-25 Completed [facility] of 00:00:00 [facility] DTAP 2006-10-25 Completed [facility] 00:00:00 [facility] Hepatitis A Adult 2006-10-25 Completed [facility] 00:00:00 [facility] Polio (IPV/OPV) 2006-10-25 Completed [facility] of 00:00:00 [facility] DTAP 2006-10-25 Completed [facility] 00:00:00 [facility] Hepatitis A Adult 2006-10-25 Completed [facility] of 00:00:00 [facility] Polio (IPV/OPV) 2006-10-25 Completed [facility] of 00:00:00 [facility] DTAP 2006-10-25 Completed [facility] 00:00:00 [facility] Hepatitis A Adult 2006-10-25 Completed [facility] 00:00:00 [facility] Polio (IPV/OPV) 2006-10-25 Completed [facility] of 00:00:00 [facility] DTAP 2006-10-25 Completed [facility] 00:00:00 [facility] Hepatitis A Adult 2006-10-25 Completed [facility] 00:00:00 [facility] Polio (IPV/OPV) 2006-10-25 Completed [facility] of 00:00:00 [facility] DTAP 2006-10-25 Completed [facility] 00:00:00 [facility] Hepatitis A Adult 2006-10-25 Completed [facility] 00:00:00 [facility] Polio (IPV/OPV) 2006-10-25 Completed [facility] 00:00:00 [facility] DTAP 2006-10-25 Completed [facility] 00:00:00 [facility] Hepatitis A Adult 2006-10-25 Completed [facility] 00:00:00 [facility] Polio (IPV/OPV) 2006-10-25 Completed [facility] of 00:00:00 [facility] DTAP 2006-10-25 Completed [facility] 00:00:00 [facility] Hepatitis A Adult 2006-10-25 Completed [facility] of 00:00:00 [facility] Polio (IPV/OPV) 2006-10-25 Completed [facility] of 00:00:00 [facility] DTAP 2006-10-25 Completed [facility] 00:00:00 [facility] Hepatitis A Adult 2006-10-25 Completed [facility] 00:00:00 [facility] Polio (IPV/OPV) 2006-10-25 Completed [facility] 00:00:00 [facility] DTAP 2006-10-25 Completed [facility] 00:00:00 [facility] Hepatitis A Adult 2006-10-25 Completed [facility] of 00:00:[address] [facility] Polio (IPV/OPV) 2006-10-25 Completed [facility] of 00:00:[address] [facility] DTAP 2006-10-25 Completed [facility] of 00:00:[address] [facility] Hepatitis A Adult 2006-10-25 Completed [facility] of 00:00:[address] [facility] Polio (IPV/OPV) 2006-10-25 Completed [facility] of 00:00:[address] [facility] DTAP 2006-10-25 Completed [facility] of 00:00:[address] [facility] Hepatitis A Adult 2006-10-25 Completed [facility] of 00:00:[address] [facility] Polio (IPV/OPV) 2006-10-25 Completed [facility] of 00:00:[address] [facility] DTAP 2006-10-25 Completed [facility] of 00:00:[address] [facility] Hepatitis A Adult 2006-10-25 Completed [facility] it[facility] of 00:00:[address] [facility] Polio (IPV/OPV) 2006-10-25 Completed [facility] of 00:00:[address] [facility] DTaP, Unspecified 2006-10-25 Completed Univers ity of Formulation 00:00:[address] [facility] HEPA,NOS 2006-10-25 Completed [facility] of 00:00:[address] [facility] IPV 2006-10-25 Completed [facility] of 00:00:[address] [facility] DTAP 2006-10-25 Completed [facility] of 00:00:[address] [facility] Hepatitis A Adult 2006-10-25 Completed [facility] it[facility] of 00:00:[address] [facility] Polio (IPV/OPV) 2006-10-25 Completed [facility] of 00:00:[address] [facility] DTaP, Unspecified 2006-10-25 Completed [facility] ity of Formulation 00:00:[address] [facility] HEPA,NOS 2006-10-25 Completed [facility] of 00:00:[address] [facility] IPV 2006-10-25 Completed [facility] of 00:00:[address] [facility] DTAP 2006-10-25 Completed [facility] of 00:00:[address] [facility] Hepatitis A Adult 2006-10-25 Completed [facility] it[facility] of 00:00:[address] [facility] Polio (IPV/OPV) 2006-10-25 Completed [facility] of 00:00:[address] [facility] DTaP, Unspecified 2006-10-25 Completed [facility] ity of Formulation 00:00:[address] [facility] HEPA,NOS 2006-10-25 Completed [facility] of 00:00:[address] [facility] IPV 2006-10-25 Completed [facility] of 00:00:[address] [facility] DTAP 2006-10-25 Completed [facility] of 00:00:[address] [facility] Hepatitis A Adult 2006-10-25 Completed [facility] it[facility] of 00:00:[address] [facility] Polio (IPV/OPV) 2006-10-25 Completed [facility] of 00:00:[address] [facility] DTaP, Unspecified 2006-10-25 Completed [facility] ity of Formulation 00:00:[address] [facility] HEPA,NOS 2006-10-25 Completed [facility] of 00:00:[address] [facility] IPV 2006-10-25 Completed [facility] of 00:00:[address] [facility] DTAP 2006-10-25 Completed [facility] of 00:00:[address] [facility] Hepatitis A Adult 2006-10-25 Completed [facility] of 00:00:[address] [facility] Polio (IPV/OPV) 2006-10-25 Completed [facility] of 00:00:[address] [facility] DTaP, Unspecified 2006-10-25 Completed [facility] ity of Formulation 00:00:[address] [facility] HEPA,NOS 2006-10-25 Completed [facility] of 00:00:[address] [facility] IPV 2006-10-25 Completed [facility] of 00:00:[address] [facility] DTAP 2006-10-25 Completed [facility] of 00:00:[address] [facility] Hepatitis A Adult 2006-10-25 Completed [facility] of 00:00:[address] [facility] Polio (IPV/OPV) 2006-10-25 Completed [facility] of 00:00:[address] [facility] DTaP, Unspecified 2006-10-25 Completed [facility] ity of Formulation 00:00:[address] [facility] HEPA,NOS 2006-10-25 Completed [facility] of 00:00:[address] [facility] IPV 2006-10-25 Completed [facility] of 00:00:[address] [facility] DTAP 2006-10-25 Completed [facility] of 00:00:[address] [facility] Hepatitis A Adult 2006-10-25 Completed [facility] of 00:00:[address] [facility] Polio (IPV/OPV) 2006-10-25 Completed [facility] of 00:00:[address] [facility] DTaP, Unspecified 2006-10-25 Completed [facility] ity of Formulation 00:00:[address] [facility] HEPA,NOS 2006-10-25 Completed [facility] of 00:00:[address] [facility] IPV 2006-10-25 Completed [facility] of 00:00:[address] [facility] DTAP 2006-10-25 Completed [facility] of 00:00:[address] [facility] Hepatitis A Adult 2006-10-25 Completed [facility] it[facility] of 00:00:[address] [facility] Polio (IPV/OPV) 2006-10-25 Completed [facility] of 00:00:[address] [facility] DTaP, Unspecified 2006-10-25 Completed [facility] it[facility] of Formulation 00:00:[address] [facility] HEPA,NOS 2006-10-25 Completed [facility] of 00:00:[address] [facility] IPV 2006-10-25 Completed [facility] of 00:00:[address] [facility] DTAP 2006-10-25 Completed [facility] of 00:00:[address] [facility] Hepatitis A Adult 2006-10-25 Completed [facility] of 00:00:[address] [facility] Polio (IPV/OPV) 2006-10-25 Completed [facility] of 00:00:[address] [facility] DTaP, Unspecified 2006-10-25 Completed [facility] ity of Formulation 00:00:[address] [facility] HEPA,NOS 2006-10-25 Completed [facility] of 00:00:[address] [facility] IPV 2006-10-25 Completed [facility] of 00:00:[address] [facility] DTAP 2006-10-25 Completed [facility] of 00:00:[address] [facility] Hepatitis A Adult 2006-10-25 Completed [facility] of 00:00:[address] [facility] Polio (IPV/OPV) 2006-10-25 Completed [facility] 00:00:[address] [facility] DTaP, Unspecified 2006-10-25 Completed [facility] it[facility] of Formulation 00:00:[address] [facility] HEPA,NOS 2006-10-25 Completed [facility] of 00:00:[address] [facility] IPV 2006-10-25 Completed [facility] of 00:00:[address] [facility] DTAP 2006-10-25 Completed [facility] of 00:00:[address] [facility] Hepatitis A Adult 2006-10-25 Completed [facility] 00:00:[address] [facility] Polio (IPV/OPV) 2006-10-25 Completed [facility] 00:00:[address] [facility] DTaP, Unspecified 2006-10-25 Completed [facility] Formulation 00:00:[address] [facility] HEPA,NOS 2006-10-25 Completed [facility] of 00:00:[address] [facility] IPV 2006-10-25 Completed [facility] of 00:00:[address] [facility] DTAP 2006-10-25 Completed [facility] of 00:00:[address] [facility] Hepatitis A Adult 2006-10-25 Completed [facility] 00:00:[address] [facility] Polio (IPV/OPV) 2006-10-25 Completed [facility] 00:00:[address] [facility] DTaP, Unspecified 2006-10-25 Completed [facility] Formulation 00:00:[address] [facility] HEPA,NOS 2006-10-25 Completed [facility] of 00:00:[address] [facility] IPV 2006-10-25 Completed [facility] of 00:00:[address] [facility] DTAP 2006-10-25 Completed [facility] of 00:00:[address] [facility] Hepatitis A Adult 2006-10-25 Completed [facility] 00:00:[address] [facility] Polio (IPV/OPV) 2006-10-25 Completed [facility] 00:00:[address] [facility] DTaP, Unspecified 2006-10-25 Completed [facility] Formulation 00:00:[address] [facility] HEPA,NOS 2006-10-25 Completed [facility] of 00:00:[address] [facility] IPV 2006-10-25 Completed [facility] of 00:00:[address] [facility] DTAP 2006-10-25 Completed [facility] of 00:00:[address] [facility] Hepatitis A Adult 2006-10-25 Completed [facility] 00:00:[address] [facility] Polio (IPV/OPV) 2006-10-25 Completed [facility] 00:00:[address] [facility] DTaP, Unspecified 2006-10-25 Completed [facility] Formulation 00:00:[address] [facility] HEPA,NOS 2006-10-25 Completed [facility] of 00:00:[address] [facility] IPV 2006-10-25 Completed [facility] of 00:00:[address] [facility] DTAP 2006-10-25 Completed [facility] of 00:00:[address] [facility] Hepatitis A Adult 2006-10-25 Completed [facility] 00:00:[address] [facility] Polio (IPV/OPV) 2006-10-25 Completed [facility] 00:00:[address] [facility] DTaP, Unspecified 2006-10-25 Completed [facility] Formulation 00:00:[address] [facility] HEPA,NOS 2006-10-25 Completed [facility] of 00:00:[address] [facility] IPV 2006-10-25 Completed [facility] of 00:00:[address] [facility] DTAP 2006-10-25 Completed [facility] of 00:00:[address] [facility] Hepatitis A Adult 2006-10-25 Completed [facility] 00:00:[address] [facility] Polio (IPV/OPV) 2006-10-25 Completed [facility] 00:00:[address] [facility] DTaP, Unspecified 2006-10-25 Completed [facility] Formulation 00:00:[address] [facility] HEPA,NOS 2006-10-25 Completed [facility] of 00:00:[address] [facility] IPV 2006-10-25 Completed [facility] of 00:00:[address] [facility] DTAP 2006-10-25 Completed [facility] of 00:00:[address] [facility] Hepatitis A Adult 2006-10-25 Completed [facility] 00:00:[address] [facility] Polio (IPV/OPV) 2006-10-25 Completed [facility] 00:00:[address] [facility] DTaP, Unspecified 2006-10-25 Completed [facility] Formulation 00:00:[address] [facility] HEPA,NOS 2006-10-25 Completed [facility] of 00:00:[address] [facility] IPV 2006-10-25 Completed [facility] of 00:00:[address] [facility] DTAP 2006-10-25 Completed [facility] of 00:00:[address] [facility] Hepatitis A Adult 2006-10-25 Completed [facility] 00:00:[address] [facility] Polio (IPV/OPV) 2006-10-25 Completed [facility] 00:00:[address] [facility] DTaP, Unspecified 2006-10-25 Completed [facility] Formulation 00:00:[address] [facility] HEPA,NOS 2006-10-25 Completed [facility] of 00:00:[address] [facility] IPV 2006-10-25 Completed [facility] of 00:00:[address] [facility] DTAP 2006-10-25 Completed [facility] of 00:00:[address] [facility] Hepatitis A Adult 2006-10-25 Completed [facility] of 00:00:[address] [facility] Polio (IPV/OPV) 2006-10-25 Completed [facility] 00:00:[address] [facility] DTaP, Unspecified 2006-10-25 Completed [facility] Formulation 00:00:[address] [facility] HEPA,NOS 2006-10-25 Completed [facility] of 00:00:[address] [facility] IPV 2006-10-25 Completed [facility] of 00:00:[address] [facility] DTAP 2006-10-25 Completed [facility] of 00:00:[address] [facility] Hepatitis A Adult 2006-10-25 Completed [facility] 00:00:[address] [facility] Polio (IPV/OPV) 2006-10-25 Completed [facility] 00:00:[address] [facility] DTaP, Unspecified 2006-10-25 Completed [facility] Formulation 00:00:[address] [facility] HEPA,NOS 2006-10-25 Completed [facility] of 00:00:[address] [facility] IPV 2006-10-25 Completed [facility] of 00:00:[address] [facility] DTAP 2006-10-25 Completed [facility] of 00:00:[address] [facility] Hepatitis A Adult 2006-10-25 Completed [facility] 00:00:[address] [facility] Polio (IPV/OPV) 2006-10-25 Completed [facility] 00:00:[address] [facility] DTaP, Unspecified 2006-10-25 Completed [facility] Formulation 00:00:[address] [facility] HEPA,NOS 2006-10-25 Completed [facility] of 00:00:[address] [facility] IPV 2006-10-25 Completed [facility] of 00:00:[address] [facility] DTAP 2006-10-25 Completed [facility] of 00:00:[address] [facility] Hepatitis A Adult 2006-10-25 Completed [facility] 00:00:[address] [facility] Polio (IPV/OPV) 2006-10-25 Completed [facility] 00:00:[address] [facility] DTaP, Unspecified 2006-10-25 Completed [facility] Formulation 00:00:[address] [facility] HEPA,NOS 2006-10-25 Completed [facility] of 00:00:[address] [facility] IPV 2006-10-25 Completed [facility] of 00:00:[address] [facility] DTAP 2006-10-25 Completed [facility] of 00:00:[address] [facility] Hepatitis A Adult 2006-10-25 Completed [facility] 00:00:[address] [facility] Polio (IPV/OPV) 2006-10-25 Completed [facility] 00:00:[address] [facility] DTaP, Unspecified 2006-10-25 Completed [facility] Formulation 00:00:[address] [facility] HEPA,NOS 2006-10-25 Completed [facility] of 00:00:[address] [facility] IPV 2006-10-25 Completed [facility] of 00:00:[address] [facility] DTAP 2006-10-25 Completed [facility] of 00:00:[address] [facility] Hepatitis A Adult 2006-10-25 Completed [facility] 00:00:[address] [facility] Polio (IPV/OPV) 2006-10-25 Completed [facility] 00:00:[address] [facility] DTaP, Unspecified 2006-10-25 Completed [facility] Formulation 00:00:[address] [facility] HEPA,NOS 2006-10-25 Completed [facility] of 00:00:[address] [facility] IPV 2006-10-25 Completed [facility] of 00:00:[address] [facility] DTAP 2006-10-25 Completed [facility] of 00:00:[address] [facility] Hepatitis A Adult 2006-10-25 Completed [facility] 00:00:[address] [facility] Polio (IPV/OPV) 2006-10-25 Completed [facility] 00:00:[address] [facility] DTaP, Unspecified 2006-10-25 Completed [facility] Formulation 00:00:[address] [facility] HEPA,NOS 2006-10-25 Completed [facility] of 00:00:[address] [facility] IPV 2006-10-25 Completed [facility] of 00:00:[address] [facility] DTAP 2006-10-25 Completed [facility] of 00:00:[address] [facility] Hepatitis A Adult 2006-10-25 Completed [facility] of 00:00:[address] [facility] Polio (IPV/OPV) 2006-10-25 Completed [facility] 00:00:[address] [facility] DTaP, Unspecified 2006-10-25 Completed [facility] Formulation 00:00:[address] [facility] HEPA,NOS 2006-10-25 Completed [facility] of 00:00:[address] [facility] IPV 2006-10-25 Completed [facility] of 00:00:[address] [facility] DTAP 2005-09-20 Completed [facility] of 00:00:[address] [facility] HIB 3 Dose Schedule 2005-09-20 Completed Un[facility] rs[facility] of 00:00:[address] [facility] Hepatitis A Adult 2005-09-20 Completed [facility] 00:00:[address] [facility] Hep B, Adol or Pedi 2005-09-20 Completed Unive rsity of Dosage 00:00:[address] [facility] Pneumococcal 13 2005-09-20 Completed [facility] of Conjugate, PCV13 00:00:00 [facility] dical (Prevnar 13) Branch Polio (IPV/OPV) 2005-09-20 Completed [facility] 00:00:[address] [facility] DTAP 2005-09-20 Completed [facility] of 00:00:[address] [facility] HIB 3 Dose Schedule 2005-09-20 Completed [facility] rs[facility] of 00:00:[address] [facility] Hepatitis A Adult 2005-09-20 Completed [facility] 00:00:[address] [facility] Hep B, Adol or Pedi 2005-09-20 Completed Unive rsity of Dosage 00:00:[address] [facility] Pneumococcal 13 2005-09-20 Completed [facility] of Conjugate, PCV13 00:00:00 [facility] dical (Prevnar 13) Branch Polio (IPV/OPV) 2005-09-20 Completed [facility] 00:00:[address] [facility] DTAP 2005-09-20 Completed [facility] of 00:00:[address] [facility] HIB 3 Dose Schedule 2005-09-20 Completed Un[facility] rsity of 00:00:[address] [facility] Hepatitis A Adult 2005-09-20 Completed [facility] 00:00:[address] [facility] Hep B, Adol or Pedi 2005-09-20 Completed Unive rsity of Dosage 00:00:[address] [facility] Pneumococcal 13 2005-09-20 Completed [facility] of Conjugate, PCV13 00:00:00 [facility] dical (Prevnar 13) Branch Polio (IPV/OPV) 2005-09-20 Completed [facility] 00:00:[address] [facility] DTAP 2005-09-20 Completed [facility] of 00:00:[address] [facility] HIB 3 Dose Schedule 2005-09-20 Completed [facility] rsity of 00:00:[address] [facility] Hepatitis A Adult 2005-09-20 Completed [facility] 00:00:[address] [facility] Hep B, Adol or Pedi 2005-09-20 Completed Unive rsity of Dosage 00:00:[address] [facility] Pneumococcal 13 2005-09-20 Completed [facility] of Conjugate, PCV13 00:00:00 [facility] dical (Prevnar 13) Branch Polio (IPV/OPV) 2005-09-20 Completed [facility] 00:00:[address] [facility] DTAP 2005-09-20 Completed [facility] of 00:00:[address] [facility] HIB 3 Dose Schedule 2005-09-20 Completed Un[facility] rsity of 00:00:[address] [facility] Hepatitis A Adult 2005-09-20 Completed [facility] 00:00:[address] [facility] Hep B, Adol or Pedi 2005-09-20 Completed Unive rsity of Dosage 00:00:[address] [facility] Pneumococcal 13 2005-09-20 Completed [facility] of Conjugate, PCV13 00:00:00 [facility] dical (Prevnar 13) Branch Polio (IPV/OPV) 2005-09-20 Completed [facility] 00:00:[address] [facility] DTAP 2005-09-20 Completed [facility] of 00:00:[address] [facility] HIB 3 Dose Schedule 2005-09-20 Completed Unive rsity of 00:00:[address] [facility] Hepatitis A Adult 2005-09-20 Completed [facility] 00:00:[address] [facility] Hep B, Adol or Pedi 2005-09-20 Completed Unive rsity of Dosage 00:00:[address] [facility] Pneumococcal 13 2005-09-20 Completed [facility] of Conjugate, PCV13 00:00:00 [facility] dical (Prevnar 13) Branch Polio (IPV/OPV) 2005-09-20 Completed [facility] 00:00:[address] [facility] DTAP 2005-09-20 Completed [facility] of 00:00:[address] [facility] HIB 3 Dose Schedule 2005-09-20 Completed Unive rsity of 00:00:[address] [facility] Hepatitis A Adult 2005-09-20 Completed [facility] 00:00:[address] [facility] Hep B, Adol or Pedi 2005-09-20 Completed Unive rsity of Dosage 00:00:[address] [facility] Pneumococcal 13 2005-09-20 Completed [facility] of Conjugate, PCV13 00:00:00 [facility] dical (Prevnar 13) Branch Polio (IPV/OPV) 2005-09-20 Completed [facility] 00:00:[address] [facility] DTAP 2005-09-20 Completed [facility] of 00:00:[address] [facility] HIB 3 Dose Schedule 2005-09-20 Completed [facility] rsity of 00:00:[address] [facility] Hepatitis A Adult 2005-09-20 Completed [facility] of 00:00:[address] [facility] Hep B, Adol or Pedi 2005-09-20 Completed Unive rsity of Dosage 00:00:[address] [facility] Pneumococcal 13 2005-09-20 Completed [facility] of Conjugate, PCV13 00:00:00 [facility]ical (Prevnar 13) Branch Polio (IPV/OPV) 2005-09-20 Completed [facility] of 00:00:[address] [facility] DTAP 2005-09-20 Completed [facility] of 00:00:[address] [facility] HIB 3 Dose Schedule 2005-09-20 Completed Unive rsity of 00:00:[address] [facility] Hepatitis A Adult 2005-09-20 Completed [facility] of 00:00:[address] [facility] Hep B, Adol or Pedi 2005-09-20 Completed Unive rsity of Dosage 00:00:[address] [facility] Pneumococcal 13 2005-09-20 Completed [facility] of Conjugate, PCV13 00:00:00 [facility] dical (Prevnar 13) Branch Polio (IPV/OPV) 2005-09-20 Completed [facility] 00:00:[address] [facility] DTAP 2005-09-20 Completed [facility] of 00:00:[address] [facility] HIB 3 Dose Schedule 2005-09-20 Completed Un[facility] rsity of 00:00:[address] [facility] Hepatitis A Adult 2005-09-20 Completed [facility] of 00:00:[address] [facility] Hep B, Adol or Pedi 2005-09-20 Completed Unive rsity of Dosage 00:00:[address] [facility] Pneumococcal 13 2005-09-20 Completed [facility] of Conjugate, PCV13 00:00:00 [facility] dical (Prevnar 13) Branch Polio (IPV/OPV) 2005-09-20 Completed [facility] 00:00:[address] [facility] DTAP 2005-09-20 Completed [facility] of 00:00:[address] [facility] HIB 3 Dose Schedule 2005-09-20 Completed [facility] rsity of 00:00:[address] [facility] Hepatitis A Adult 2005-09-20 Completed [facility] 00:00:[address] [facility] Hep B, Adol or Pedi 2005-09-20 Completed Unive rsity of Dosage 00:00:[address] [facility] Pneumococcal 13 2005-09-20 Completed [facility] of Conjugate, PCV13 00:00:00 [facility] dical (Prevnar 13) Branch Polio (IPV/OPV) 2005-09-20 Completed [facility] 00:00:[address] [facility] DTAP 2005-09-20 Completed [facility] of 00:00:[address] [facility] HIB 3 Dose Schedule 2005-09-20 Completed Un[facility] rsity of 00:00:[address] [facility] Hepatitis A Adult 2005-09-20 Completed [facility] of 00:00:[address] [facility] Hep B, Adol or Pedi 2005-09-20 Completed Unive rsity of Dosage 00:00:[address] [facility] Pneumococcal 13 2005-09-20 Completed [facility] of Conjugate, PCV13 00:00:00 [facility] dical (Prevnar 13) Branch Polio (IPV/OPV) 2005-09-20 Completed [facility] of 00:00:[address] [facility] DTAP 2005-09-20 Completed [facility] of 00:00:[address] [facility] HIB 3 Dose Schedule 2005-09-20 Completed [facility] rsity of 00:00:[address] [facility] Hepatitis A Adult 2005-09-20 Completed [facility] of 00:00:[address] [facility] Hep B, Adol or Pedi 2005-09-20 Completed Unive rsity of Dosage 00:00:[address] [facility] Pneumococcal 13 2005-09-20 Completed [facility] of Conjugate, PCV13 00:00:00 [facility] dical (Prevnar 13) Branch Polio (IPV/OPV) 2005-09-20 Completed [facility] of 00:00:[address] [facility] DTAP 2005-09-20 Completed [facility] of 00:00:[address] [facility] HIB 3 Dose Schedule 2005-09-20 Completed Unive rsity of 00:00:[address] [facility] Hepatitis A Adult 2005-09-20 Completed [facility] of 00:00:[address] [facility] Hep B, Adol or Pedi 2005-09-20 Completed Unive rsity of Dosage 00:00:[address] [facility] Pneumococcal 13 2005-09-20 Completed [facility] of Conjugate, PCV13 00:00:00 [facility] dical (Prevnar 13) Branch Polio (IPV/OPV) 2005-09-20 Completed [facility] of 00:00:[address] [facility] DTAP 2005-09-20 Completed [facility] of 00:00:[address] [facility] HIB 3 Dose Schedule 2005-09-20 Completed Unive rsity of 00:00:[address] [facility] Hepatitis A Adult 2005-09-20 Completed [facility] of 00:00:[address] [facility] Hep B, Adol or Pedi 2005-09-20 Completed Unive rsity of Dosage 00:00:[address] [facility] Pneumococcal 13 2005-09-20 Completed [facility] of Conjugate, PCV13 00:00:00 [facility] dical (Prevnar 13) Branch Polio (IPV/OPV) 2005-09-20 Completed [facility] of 00:00:[address] [facility] DTAP 2005-09-20 Completed [facility] of 00:00:[address] [facility] HIB 3 Dose Schedule 2005-09-20 Completed Unive rsity of 00:00:[address] [facility] Hepatitis A Adult 2005-09-20 Completed [facility] of 00:00:[address] [facility] Hep B, Adol or Pedi 2005-09-20 Completed Unive rsity of Dosage 00:00:[address] [facility] Pneumococcal 13 2005-09-20 Completed [facility] of Conjugate, PCV13 00:00:00 [facility] dical (Prevnar 13) Branch Polio (IPV/OPV) 2005-09-20 Completed [facility] of 00:00:[address] [facility] DTAP 2005-09-20 Completed [facility] of 00:00:[address] [facility] HIB 3 Dose Schedule 2005-09-20 Completed Unive rsity of 00:00:[address] [facility] Hepatitis A Adult 2005-09-20 Completed [facility] of 00:00:[address] [facility] Hep B, Adol or Pedi 2005-09-20 Completed Unive rsity of Dosage 00:00:[address] [facility] Pneumococcal 13 2005-09-20 Completed [facility] of Conjugate, PCV13 00:00:00 [facility] dical (Prevnar 13) Branch Polio (IPV/OPV) 2005-09-20 Completed [facility] of 00:00:[address] [facility] DTAP 2005-09-20 Completed [facility] of 00:00:[address] [facility] HIB 3 Dose Schedule 2005-09-20 Completed Unive rsity of 00:00:[address] [facility] Hepatitis A Adult 2005-09-20 Completed [facility] of 00:00:[address] [facility] Hep B, Adol or Pedi 2005-09-20 Completed Unive rsity of Dosage 00:00:[address] [facility] Pneumococcal 13 2005-09-20 Completed [facility] of Conjugate, PCV13 00:00:00 [facility] dical (Prevnar 13) Branch Polio (IPV/OPV) 2005-09-20 Completed [facility] of 00:00:[address] [facility] DTAP 2005-09-20 Completed [facility] of 00:00:[address] [facility] HIB 3 Dose Schedule 2005-09-20 Completed Unive rsity of 00:00:[address] [facility] Hepatitis A Adult 2005-09-20 Completed [facility] of 00:00:[address] [facility] Hep B, Adol or Pedi 2005-09-20 Completed Unive rsity of Dosage 00:00:[address] [facility] Pneumococcal 13 2005-09-20 Completed [facility] of Conjugate, PCV13 00:00:00 [facility] dical (Prevnar 13) Branch Polio (IPV/OPV) 2005-09-20 Completed [facility] of 00:00:[address] [facility] DTAP 2005-09-20 Completed [facility] of 00:00:[address] [facility] HIB 3 Dose Schedule 2005-09-20 Completed Unive rsity of 00:00:[address] [facility] Hepatitis A Adult 2005-09-20 Completed [facility] of 00:00:[address] [facility] Hep B, Adol or Pedi 2005-09-20 Completed Unive rsity of Dosage 00:00:[address] [facility] Pneumococcal 13 2005-09-20 Completed [facility] of Conjugate, PCV13 00:00:00 [facility] dical (Prevnar 13) Branch Polio (IPV/OPV) 2005-09-20 Completed [facility] of 00:00:[address] [facility] DTAP 2005-09-20 Completed [facility] of 00:00:[address] [facility] HIB 3 Dose Schedule 2005-09-20 Completed Unive rsity of 00:00:[address] [facility] Hepatitis A Adult 2005-09-20 Completed [facility] of 00:00:[address] [facility] Hep B, Adol or Pedi 2005-09-20 Completed Unive rsity of Dosage 00:00:[address] [facility] Pneumococcal 13 2005-09-20 Completed [facility] of Conjugate, PCV13 00:00:00 [facility] dical (Prevnar 13) Branch Polio (IPV/OPV) 2005-09-20 Completed [facility] of 00:00:[address] [facility] DTAP 2005-09-20 Completed [facility] of 00:00:[address] [facility] HIB 3 Dose Schedule 2005-09-20 Completed Unive rsity of 00:00:[address] [facility] Hepatitis A Adult 2005-09-20 Completed [facility] of 00:00:[address] [facility] Hep B, Adol or Pedi 2005-09-20 Completed Unive rsity of Dosage 00:00:[address] [facility] Pneumococcal 13 2005-09-20 Completed [facility] of Conjugate, PCV13 00:00:00 [facility] dical (Prevnar 13) Branch Polio (IPV/OPV) 2005-09-20 Completed [facility] of 00:00:[address] [facility] DTAP 2005-09-20 Completed [facility] of 00:00:[address] [facility] HIB 3 Dose Schedule 2005-09-20 Completed Unive rsity of 00:00:[address] [facility] Hepatitis A Adult 2005-09-20 Completed [facility] of 00:00:[address] [facility] Hep B, Adol or Pedi 2005-09-20 Completed Unive rsity of Dosage 00:00:[address] [facility] Pneumococcal 13 2005-09-20 Completed [facility] of Conjugate, PCV13 00:00:00 [facility] dical (Prevnar 13) Branch Polio (IPV/OPV) 2005-09-20 Completed [facility] of 00:00:[address] [facility] DTAP 2005-09-20 Completed [facility] of 00:00:[address] [facility] HIB 3 Dose Schedule 2005-09-20 Completed Unive rsity of 00:00:[address] [facility] Hepatitis A Adult 2005-09-20 Completed [facility] of 00:00:[address] [facility] Hep B, Adol or Pedi 2005-09-20 Completed Unive rsity of Dosage 00:00:[address] [facility] Pneumococcal 13 2005-09-20 Completed [facility] of Conjugate, PCV13 00:00:00 [facility] dical (Prevnar 13) Branch Polio (IPV/OPV) 2005-09-20 Completed [facility] of 00:00:[address] [facility] DTAP 2005-09-20 Completed [facility] of 00:00:[address] [facility] HIB 3 Dose Schedule 2005-09-20 Completed Unive rsity of 00:00:[address] [facility] Hepatitis A Adult 2005-09-20 Completed [facility] of 00:00:[address] [facility] Hep B, Adol or Pedi 2005-09-20 Completed Unive rsity of Dosage 00:00:[address] [facility] Pneumococcal 13 2005-09-20 Completed [facility] of Conjugate, PCV13 00:00:00 [facility] (Prevnar 13) Branch Polio (IPV/OPV) 2005-09-20 Completed [facility] of 00:00:[address] [facility] DTAP 2005-09-20 Completed [facility] of 00:00:[address] [facility] HIB 3 Dose Schedule 2005-09-20 Completed Unive rsity of 00:00:[address] [facility] Hepatitis A Adult 2005-09-20 Completed [facility] of 00:00:[address] [facility] Hep B, Adol or Pedi 2005-09-20 Completed Unive rsity of Dosage 00:00:[address] [facility] Pneumococcal 13 2005-09-20 Completed [facility] of Conjugate, PCV13 00:00:00 [facility] dical (Prevnar 13) Branch Polio (IPV/OPV) 2005-09-20 Completed [facility] of 00:00:[address] [facility] DTAP 2005-09-20 Completed [facility] 00:00:00 [facility] [facility] HIB 3 Dose Schedule 2005-09-20 Completed [facility] 00:00:[address] [facility] Hepatitis A Adult 2005-09-20 Completed [facility] 00:00:[address] [facility] Hep B, Adol or Pedi 2005-09-20 Completed [facility] Dosage 00:00:[address] [facility] Pneumococcal 13 2005-09-20 Completed [facility] of Conjugate, PCV13 00:00:00 [facility] dical (Prevnar 13) Branch Polio (IPV/OPV) 2005-09-20 Completed [facility] 00:00:[address] [facility] DTAP 2005-09-20 Completed [facility] 00:00:[address] [facility] HIB 3 Dose Schedule 2005-09-20 Completed [facility] 00:00:[address] [facility] Hepatitis A Adult 2005-09-20 Completed [facility] 00:00:[address] [facility] Hep B, Adol or Pedi 2005-09-20 Completed [facility] Dosage 00:00:[address] [facility] Pneumococcal 13 2005-09-20 Completed [facility] of Conjugate, PCV13 00:00:00 [facility] dical (Prevnar 13) Branch Polio (IPV/OPV) 2005-09-20 Completed [facility] 00:00:[address] [facility] DTAP 2005-09-20 Completed [facility] 00:00:[address] [facility] HIB 3 Dose Schedule 2005-09-20 Completed [facility] 00:00:[address] [facility] Hepatitis A Adult 2005-09-20 Completed [facility] 00:00:[address] [facility] Hep B, Adol or Pedi 2005-09-20 Completed [facility] Dosage 00:00:[address] [facility] Pneumococcal 13 2005-09-20 Completed [facility] of Conjugate, PCV13 00:00:00 [facility] dical (Prevnar 13) Branch Polio (IPV/OPV) 2005-09-20 Completed [facility] 00:00:[address] [facility] DTAP 2005-09-20 Completed [facility] 00:00:[address] [facility] HIB 3 Dose Schedule 2005-09-20 Completed [facility] 00:00:[address] [facility] Hepatitis A Adult 2005-09-20 Completed [facility] 00:00:[address] [facility] Hep B, Adol or Pedi 2005-09-20 Completed [facility] Dosage 00:00:[address] [facility] Pneumococcal 13 2005-09-20 Completed [facility] of Conjugate, PCV13 00:00:00 [facility] dical (Prevnar 13) Branch Polio (IPV/OPV) 2005-09-20 Completed [facility] 00:00:[address] [facility] DTAP 2005-09-20 Completed [facility] 00:00:[address] [facility] HIB 3 Dose Schedule 2005-09-20 Completed [facility] 00:00:[address] [facility] Hepatitis A Adult 2005-09-20 Completed [facility] 00:00:[address] [facility] Hep B, Adol or Pedi 2005-09-20 Completed [facility] Dosage 00:00:[address] [facility] Pneumococcal 13 2005-09-20 Completed [facility] of Conjugate, PCV13 00:00:00 [facility] dical (Prevnar 13) Branch Polio (IPV/OPV) 2005-09-20 Completed [facility] 00:00:[address] [facility] DTAP 2005-09-20 Completed [facility] 00:00:[address] [facility] HIB 3 Dose Schedule 2005-09-20 Completed [facility] 00:00:[address] [facility] Hepatitis A Adult 2005-09-20 Completed [facility] 00:00:[address] [facility] Hep B, Adol or Pedi 2005-09-20 Completed [facility] Dosage 00:00:[address] [facility] Pneumococcal 13 2005-09-20 Completed [facility] of Conjugate, PCV13 00:00:00 [facility] dical (Prevnar 13) Branch Polio (IPV/OPV) 2005-09-20 Completed [facility] 00:00:[address] [facility] DTAP 2005-09-20 Completed [facility] of 00:00:[address] [facility] HIB 3 Dose Schedule 2005-09-20 Completed [facility] 00:00:[address] [facility] Hepatitis A Adult 2005-09-20 Completed [facility] 00:00:[address] [facility] Hep B, Adol or Pedi 2005-09-20 Completed [facility] Dosage 00:00:[address] [facility] Pneumococcal 13 2005-09-20 Completed [facility] of Conjugate, PCV13 00:00:00 [facility] dical (Prevnar 13) Branch Polio (IPV/OPV) 2005-09-20 Completed [facility] 00:00:[address] [facility] DTAP 2005-09-20 Completed [facility] of 00:00:[address] [facility] HIB 3 Dose Schedule 2005-09-20 Completed [facility] 00:00:[address] [facility] Hepatitis A Adult 2005-09-20 Completed [facility] 00:00:[address] [facility] Hep B, Adol or Pedi 2005-09-20 Completed [facility] of Dosage 00:00:[address] [facility] Pneumococcal 13 2005-09-20 Completed [facility] of Conjugate, PCV13 00:00:00 [facility] dical (Prevnar 13) Branch Polio (IPV/OPV) 2005-09-20 Completed [facility] 00:00:[address] [facility] DTAP 2005-09-20 Completed [facility] of 00:00:[address] [facility] HIB 3 Dose Schedule 2005-09-20 Completed [facility] 00:00:[address] [facility] Hepatitis A Adult 2005-09-20 Completed [facility] 00:00:[address] [facility] Hep B, Adol or Pedi 2005-09-20 Completed [facility] of Dosage 00:00:[address] [facility] Pneumococcal 13 2005-09-20 Completed [facility] of Conjugate, PCV13 00:00:00 [facility] dical (Prevnar 13) Branch Polio (IPV/OPV) 2005-09-20 Completed [facility] 00:00:[address] [facility] DTAP 2005-09-20 Completed [facility] of 00:00:[address] [facility] HIB 3 Dose Schedule 2005-09-20 Completed [facility] 00:00:[address] [facility] Hepatitis A Adult 2005-09-20 Completed [facility] 00:00:[address] [facility] Hep B, Adol or Pedi 2005-09-20 Completed [facility] of Dosage 00:00:[address] [facility] Pneumococcal 13 2005-09-20 Completed [facility] of Conjugate, PCV13 00:00:00 [facility] dical (Prevnar 13) Branch Polio (IPV/OPV) 2005-09-20 Completed [facility] 00:00:[address] [facility] DTAP 2005-09-20 Completed [facility] of 00:00:[address] [facility] HIB 3 Dose Schedule 2005-09-20 Completed [facility] 00:00:[address] [facility] Hepatitis A Adult 2005-09-20 Completed [facility] 00:00:[address] [facility] Hep B, Adol or Pedi 2005-09-20 Completed [facility] of Dosage 00:00:[address] [facility] Pneumococcal 13 2005-09-20 Completed [facility] of Conjugate, PCV13 00:00:00 [facility] dical (Prevnar 13) Branch Polio (IPV/OPV) 2005-09-20 Completed [facility] 00:00:[address] [facility] DTAP 2005-09-20 Completed [facility] of 00:00:[address] [facility] HIB 3 Dose Schedule 2005-09-20 Completed [facility] 00:00:[address] [facility] Hepatitis A Adult 2005-09-20 Completed [facility] 00:00:[address] [facility] Hep B, Adol or Pedi 2005-09-20 Completed [facility] of Dosage 00:00:[address] [facility] Pneumococcal 13 2005-09-20 Completed [facility] of Conjugate, PCV13 00:00:00 [facility] dical (Prevnar 13) Branch Polio (IPV/OPV) 2005-09-20 Completed [facility] of 00:00:[address] [facility] DTaP, Unspecified 2005-09-20 Completed [facility] of Formulation 00:00:[address] [facility] HEPATITIS A 2005-09-20 Completed [facility] of 00:00:[address] [facility] HIB 4 Dose Schedule 2005-09-20 Completed [facility] of 00:00:[address] [facility] Pneumococcal 7 2005-09-20 Completed [facility] of Conjugate, PCV7 00:00:00 [facility] (Prevnar7) Branch IPV 2005-09-20 Completed [facility] of 00:00:[address] [facility] DTAP 2005-09-20 Completed [facility] of 00:00:[address] [facility] HIB 3 Dose Schedule 2005-09-20 Completed [facility] of 00:00:[address] [facility] Hepatitis A Adult 2005-09-20 Completed [facility] 00:00:[address] [facility] Hep B, Adol or Pedi 2005-09-20 Completed [facility] of Dosage 00:00:[address] [facility] Pneumococcal 13 2005-09-20 Completed [facility] of Conjugate, PCV13 00:00:00 [facility] dicil (Prevnar 13) Branch Polio (IPV/OPV) 2005-09-20 Completed [facility] 00:00:[address] [facility] DTaP, Unspecified 2005-09-20 Completed [facility] of Formulation 00:00:[address] [facility] HEPATITIS A 2005-09-20 Completed [facility] of 00:00:[address] [facility] HIB 4 Dose Schedule 2005-09-20 Completed [facility] of 00:00:[address] [facility] Pneumococcal 7 2005-09-20 Completed [facility] of Conjugate, PCV7 00:00:00 [facility] (Prevnar7) Branch IPV 2005-09-20 Completed [facility] of 00:00:[address] [facility] DTAP 2005-09-20 Completed [facility] of 00:00:[address] [facility] HIB 3 Dose Schedule 2005-09-20 Completed [facility] of 00:00:[address] [facility] Hepatitis A Adult 2005-09-20 Completed [facility] 00:00:[address] [facility] Hep B, Adol or Pedi 2005-09-20 Completed [facility] of Dosage 00:00:[address] [facility] Pneumococcal 13 2005-09-20 Completed [facility] of Conjugate, PCV13 00:00:00 [facility] dical (Prevnar 13) Branch Polio (IPV/OPV) 2005-09-20 Completed [facility] 00:00:[address] [facility] DTaP, Unspecified 2005-09-20 Completed [facility] of Formulation 00:00:[address] [facility] HEPATITIS A 2005-09-20 Completed [facility] of 00:00:[address] [facility] HIB 4 Dose Schedule 2005-09-20 Completed [facility] of 00:00:[address] [facility] Pneumococcal 7 2005-09-20 Completed [facility] of Conjugate, PCV7 00:00:00 [facility] (Prevnar7) Branch IPV 2005-09-20 Completed [facility] of 00:00:[address] [facility] DTAP 2005-09-20 Completed [facility] of 00:00:[address] [facility] HIB 3 Dose Schedule 2005-09-20 Completed [facility] of 00:00:[address] [facility] Hepatitis A Adult 2005-09-20 Completed [facility] 00:00:[address] [facility] Hep B, Adol or Pedi 2005-09-20 Completed [facility] of Dosage 00:00:[address] [facility] Pneumococcal 13 2005-09-20 Completed [facility] of Conjugate, PCV13 00:00:00 [facility] (Prevnar 13) Branch Polio (IPV/OPV) 2005-09-20 Completed [facility] 00:00:[address] [facility] DTaP, Unspecified 2005-09-20 Completed [facility] of Formulation 00:00:[address] [facility] HEPATITIS A 2005-09-20 Completed [facility] of 00:00:[address] [facility] HIB 4 Dose Schedule 2005-09-20 Completed [facility] of 00:00:[address] [facility] Pneumococcal 7 2005-09-20 Completed [facility] of Conjugate, PCV7 00:00:00 [facility] (Prevnar7) Branch IPV 2005-09-20 Completed [facility] of 00:00:[address] [facility] DTAP 2005-09-20 Completed [facility] of 00:00:[address] [facility] HIB 3 Dose Schedule 2005-09-20 Completed [facility] of 00:00:[address] [facility] Hepatitis A Adult 2005-09-20 Completed [facility] 00:00:[address] [facility] Hep B, Adol or Pedi 2005-09-20 Completed [facility] of Dosage 00:00:[address] [facility] Pneumococcal 13 2005-09-20 Completed [facility] of Conjugate, PCV13 00:00:00 [facility] dical (Prevnar 13) Branch Polio (IPV/OPV) 2005-09-20 Completed [facility] 00:00:[address] [facility] DTaP, Unspecified 2005-09-20 Completed [facility] Formulation 00:00:[address] [facility] HEPATITIS A 2005-09-20 Completed [facility] of 00:00:[address] [facility] HIB 4 Dose Schedule 2005-09-20 Completed [facility] of 00:00:[address] [facility] Pneumococcal 7 2005-09-20 Completed [facility] of Conjugate, PCV7 00:00:00 [facility] (Prevnar7) Branch IPV 2005-09-20 Completed [facility] of 00:00:[address] [facility] DTAP 2005-09-20 Completed [facility] of 00:00:[address] [facility] HIB 3 Dose Schedule 2005-09-20 Completed [facility] 00:00:[address] [facility] Hepatitis A Adult 2005-09-20 Completed [facility] 00:00:[address] [facility] Hep B, Adol or Pedi 2005-09-20 Completed [facility] of Dosage 00:00:[address] [facility] Pneumococcal 13 2005-09-20 Completed [facility] of Conjugate, PCV13 00:00:00 [facility] dicil (Prevnar 13) Branch Polio (IPV/OPV) 2005-09-20 Completed [facility] 00:00:[address] [facility] DTaP, Unspecified 2005-09-20 Completed [facility] Formulation 00:00:[address] [facility] HEPATITIS A 2005-09-20 Completed [facility] of 00:00:[address] [facility] HIB 4 Dose Schedule 2005-09-20 Completed [facility] of 00:00:[address] [facility] Pneumococcal 7 2005-09-20 Completed [facility] of Conjugate, PCV7 00:00:00 [facility] (Prevnar7) Branch IPV 2005-09-20 Completed [facility] of 00:00:[address] [facility] DTAP 2005-09-20 Completed [facility] of 00:00:[address] [facility] HIB 3 Dose Schedule 2005-09-20 Completed [facility] 00:00:[address] [facility] Hepatitis A Adult 2005-09-20 Completed [facility] 00:00:[address] [facility] Hep B, Adol or Pedi 2005-09-20 Completed [facility] of Dosage 00:00:[address] [facility] Pneumococcal 13 2005-09-20 Completed [facility] of Conjugate, PCV13 00:00:00 [facility] dical (Prevnar 13) Branch Polio (IPV/OPV) 2005-09-20 Completed [facility] 00:00:[address] [facility] DTaP, Unspecified 2005-09-20 Completed [facility] Formulation 00:00:[address] [facility] HEPATITIS A 2005-09-20 Completed [facility] of 00:00:[address] [facility] HIB 4 Dose Schedule 2005-09-20 Completed [facility] of 00:00:[address] [facility] Pneumococcal 7 2005-09-20 Completed [facility] of Conjugate, PCV7 00:00:00 [facility] (Prevnar7) Branch IPV 2005-09-20 Completed [facility] of 00:00:[address] [facility] DTAP 2005-09-20 Completed [facility] of 00:00:[address] [facility] HIB 3 Dose Schedule 2005-09-20 Completed [facility] of 00:00:[address] [facility] Hepatitis A Adult 2005-09-20 Completed [facility] 00:00:[address] [facility] Hep B, Adol or Pedi 2005-09-20 Completed [facility] of Dosage 00:00:[address] [facility] Pneumococcal 13 2005-09-20 Completed [facility] of Conjugate, PCV13 00:00:00 [facility] (Prevnar 13) [place] Polio (IPV/OPV) 2005-09-20 Completed [facility] 00:00:[address] [facility] DTaP, Unspecified 2005-09-20 Completed [facility] Formulation 00:00:[address] [facility] HEPATITIS A 2005-09-20 Completed [facility] of 00:00:[address] [facility] HIB 4 Dose Schedule 2005-09-20 Completed [facility] of 00:00:[address] [facility] Pneumococcal 7 2005-09-20 Completed [facility] of Conjugate, PCV7 00:00:00 [facility] (Prevnar7) Branch IPV 2005-09-20 Completed [facility] of 00:00:[address] [facility] DTAP 2005-09-20 Completed [facility] of 00:00:[address] [facility] HIB 3 Dose Schedule 2005-09-20 Completed [facility] of 00:00:[address] [facility] Hepatitis A Adult 2005-09-20 Completed [facility] 00:00:[address] [facility] Hep B, Adol or Pedi 2005-09-20 Completed [facility] of Dosage 00:00:[address] [facility] Pneumococcal 13 2005-09-20 Completed [facility] of Conjugate, PCV13 00:00:00 [facility] dical (Prevnar 13) [place] Polio (IPV/OPV) 2005-09-20 Completed [facility] 00:00:[address] [facility] DTaP, Unspecified 2005-09-20 Completed [facility] of Formulation 00:00:[address] [facility] HEPATITIS A 2005-09-20 Completed [facility] of 00:00:[address] [facility] HIB 4 Dose Schedule 2005-09-20 Completed [facility] of 00:00:[address] [facility] Pneumococcal 7 2005-09-20 Completed [facility] of Conjugate, PCV7 00:00:00 [facility] (Prevnar7) Branch IPV 2005-09-20 Completed [facility] of 00:00:[address] [facility] DTAP 2005-09-20 Completed [facility] of 00:00:[address] [facility] HIB 3 Dose Schedule 2005-09-20 Completed [facility] of 00:00:[address] [facility] Hepatitis A Adult 2005-09-20 Completed [facility] 00:00:[address] [facility] Hep B, Adol or Pedi 2005-09-20 Completed [facility] of Dosage 00:00:[address] [facility] Pneumococcal 13 2005-09-20 Completed [facility] of Conjugate, PCV13 00:00:00 [facility] (Prevnar 13) [place] Polio (IPV/OPV) 2005-09-20 Completed [facility] 00:00:[address] [facility] DTaP, Unspecified 2005-09-20 Completed [facility] Formulation 00:00:[address] [facility] HEPATITIS A 2005-09-20 Completed [facility] of 00:00:[address] [facility] HIB 4 Dose Schedule 2005-09-20 Completed [facility] of 00:00:[address] [facility] Pneumococcal 7 2005-09-20 Completed [facility] of Conjugate, PCV7 00:00:00 [facility] (Prevnar7) Branch IPV 2005-09-20 Completed [facility] of 00:00:[address] [facility] DTAP 2005-09-20 Completed [facility] of 00:00:[address] [facility] HIB 3 Dose Schedule 2005-09-20 Completed [facility] of 00:00:[address] [facility] Hepatitis A Adult 2005-09-20 Completed [facility] 00:00:[address] [facility] Hep B, Adol or Pedi 2005-09-20 Completed [facility] of Dosage 00:00:[address] [facility] Pneumococcal 13 2005-09-20 Completed [facility] of Conjugate, PCV13 00:00:00 [facility] dical (Prevnar 13) Branch Polio (IPV/OPV) 2005-09-20 Completed [facility] 00:00:[address] [facility] DTaP, Unspecified 2005-09-20 Completed [facility] Formulation 00:00:[address] [facility] HEPATITIS A 2005-09-20 Completed [facility] of 00:00:[address] [facility] HIB 4 Dose Schedule 2005-09-20 Completed [facility] of 00:00:[address] [facility] Pneumococcal 7 2005-09-20 Completed [facility] of Conjugate, PCV7 00:00:00 [facility] (Prevnar7) Branch IPV 2005-09-20 Completed [facility] of 00:00:[address] [facility] DTAP 2005-09-20 Completed [facility] of 00:00:[address] [facility] HIB 3 Dose Schedule 2005-09-20 Completed [facility] of 00:00:[address] [facility] Hepatitis A Adult 2005-09-20 Completed [facility] 00:00:[address] [facility] Hep B, Adol or Pedi 2005-09-20 Completed [facility] of Dosage 00:00:[address] [facility] Pneumococcal 13 2005-09-20 Completed [facility] of Conjugate, PCV13 00:00:00 [facility] dical (Prevnar 13) Branch Polio (IPV/OPV) 2005-09-20 Completed [facility] 00:00:[address] [facility] DTaP, Unspecified 2005-09-20 Completed [facility] Formulation 00:00:[address] [facility] HEPATITIS A 2005-09-20 Completed [facility] of 00:00:[address] [facility] HIB 4 Dose Schedule 2005-09-20 Completed [facility] of 00:00:[address] [facility] Pneumococcal 7 2005-09-20 Completed [facility] of Conjugate, PCV7 00:00:00 [facility] (Prevnar7) Branch IPV 2005-09-20 Completed [facility] of 00:00:[address] [facility] DTAP 2005-09-20 Completed [facility] of 00:00:[address] [facility] HIB 3 Dose Schedule 2005-09-20 Completed [facility] 00:00:[address] [facility] Hepatitis A Adult 2005-09-20 Completed [facility] 00:00:[address] [facility] Hep B, Adol or Pedi 2005-09-20 Completed [facility] of Dosage 00:00:[address] [facility] Pneumococcal 13 2005-09-20 Completed [facility] of Conjugate, PCV13 00:00:00 [facility] dical (Prevnar 13) Branch Polio (IPV/OPV) 2005-09-20 Completed [facility] 00:00:[address] [facility] DTaP, Unspecified 2005-09-20 Completed [facility] Formulation 00:00:[address] [facility] HEPATITIS A 2005-09-20 Completed [facility] of 00:00:[address] [facility] HIB 4 Dose Schedule 2005-09-20 Completed [facility] of 00:00:[address] [facility] Pneumococcal 7 2005-09-20 Completed [facility] of Conjugate, PCV7 00:00:00 [facility] (Prevnar7) Branch IPV 2005-09-20 Completed [facility] of 00:00:[address] [facility] DTAP 2005-09-20 Completed [facility] of 00:00:[address] [facility] HIB 3 Dose Schedule 2005-09-20 Completed [facility] of 00:00:[address] [facility] Hepatitis A Adult 2005-09-20 Completed [facility] 00:00:[address] [facility] Hep B, Adol or Pedi 2005-09-20 Completed [facility] of Dosage 00:00:[address] [facility] Pneumococcal 13 2005-09-20 Completed [facility] of Conjugate, PCV13 00:00:00 [facility] dical (Prevnar 13) Branch Polio (IPV/OPV) 2005-09-20 Completed [facility] 00:00:[address] [facility] DTaP, Unspecified 2005-09-20 Completed [facility] Formulation 00:00:[address] [facility] HEPATITIS A 2005-09-20 Completed [facility] of 00:00:[address] [facility] HIB 4 Dose Schedule 2005-09-20 Completed [facility] of 00:00:[address] [facility] Pneumococcal 7 2005-09-20 Completed [facility] of Conjugate, PCV7 00:00:00 [facility] (Prevnar7) Branch IPV 2005-09-20 Completed [facility] of 00:00:[address] [facility] DTAP 2005-09-20 Completed [facility] of 00:00:[address] [facility] HIB 3 Dose Schedule 2005-09-20 Completed [facility] 00:00:[address] [facility] Hepatitis A Adult 2005-09-20 Completed [facility] 00:00:[address] [facility] Hep B, Adol or Pedi 2005-09-20 Completed [facility] of Dosage 00:00:[address] [facility] Pneumococcal 13 2005-09-20 Completed [facility] of Conjugate, PCV13 00:00:00 [facility] dical (Prevnar 13) Branch Polio (IPV/OPV) 2005-09-20 Completed [facility] 00:00:[address] [facility] DTaP, Unspecified 2005-09-20 Completed [facility] Formulation 00:00:[address] [facility] HEPATITIS A 2005-09-20 Completed [facility] of 00:00:[address] [facility] HIB 4 Dose Schedule 2005-09-20 Completed [facility] of 00:00:[address] [facility] Pneumococcal 7 2005-09-20 Completed [facility] of Conjugate, PCV7 00:00:00 [facility] (Prevnar7) Branch IPV 2005-09-20 Completed [facility] of 00:00:[address] [facility] DTAP 2005-09-20 Completed [facility] of 00:00:[address] [facility] HIB 3 Dose Schedule 2005-09-20 Completed [facility] of 00:00:[address] [facility] Hepatitis A Adult 2005-09-20 Completed [facility] 00:00:[address] [facility] Hep B, Adol or Pedi 2005-09-20 Completed [facility] of Dosage 00:00:[address] [facility] Pneumococcal 13 2005-09-20 Completed [facility] of Conjugate, PCV13 00:00:00 [facility] (Prevnar 13) Branch Polio (IPV/OPV) 2005-09-20 Completed [facility] 00:00:[address] [facility] DTaP, Unspecified 2005-09-20 Completed [facility] Formulation 00:00:[address] [facility] HEPATITIS A 2005-09-20 Completed [facility] of 00:00:[address] [facility] HIB 4 Dose Schedule 2005-09-20 Completed [facility] of 00:00:[address] [facility] Pneumococcal 7 2005-09-20 Completed [facility] of Conjugate, PCV7 00:00:00 [facility] (Prevnar7) Branch IPV 2005-09-20 Completed [facility] of 00:00:[address] [facility] DTAP 2005-09-20 Completed [facility] of 00:00:[address] [facility] HIB 3 Dose Schedule 2005-09-20 Completed [facility] of 00:00:[address] [facility] Hepatitis A Adult 2005-09-20 Completed [facility] [facility] Hep B, Adol or Pedi 2005-09-20 Completed [facility]ive rsity of Dosage 00:00:[address] [facility] Pneumococcal 13 2005-09-20 Completed Universit y of Conjugate, PCV13 00:00:00 [facility] dical (Prevnar 13) Branch Polio (IPV/OPV) 2005-09-20 Completed [facility] of 00:00:[address] [facility] DTaP, Unspecified 2005-09-20 Completed Univers ity of Formulation 00:00:[address] [facility] HEPATITIS A 2005-09-20 Completed [facility] of 00:00:[address] [facility] HIB 4 Dose Schedule 2005-09-20 Completed Unive rsity of 00:00:[address] [facility] Pneumococcal 7 2005-09-20 Completed University of Conjugate, PCV7 00:00:00 [facility] ical (Prevnar7) Branch IPV 2005-09-20 Completed University of 00:00:[address] [facility] DTAP 2005-09-20 Completed University of 00:00:[address] [facility] HIB 3 Dose Schedule 2005-09-20 Completed Unive rsity of 00:00:[address] [facility] Hepatitis A Adult 2005-09-20 Completed [facility] ity of 00:00:[address] [facility] Hep B, Adol or Pedi 2005-09-20 Completed [facility]ive rsity of Dosage 00:00:[address] [facility] Pneumococcal 13 2005-09-20 Completed [facility]it [facility] of Conjugate, PCV13 00:00:00 [facility] dical (Prevnar 13) Branch Polio (IPV/OPV) 2005-09-20 Completed [facility] of 00:00:[address] [facility] DTaP, Unspecified 2005-09-20 Completed [facility] ity of Formulation 00:00:[address] [facility] HEPATITIS A 2005-09-20 Completed [facility] of 00:00:[address] [facility] HIB 4 Dose Schedule 2005-09-20 Completed Unive rsity of 00:00:[address] [facility] Pneumococcal 7 2005-09-20 Completed University of Conjugate, PCV7 00:00:00 [facility] (Prevnar7) Branch IPV 2005-09-20 Completed [facility] of 00:00:[address] [facility] DTAP 2005-09-20 Completed University of 00:00:[address] [facility] HIB 3 Dose Schedule 2005-09-20 Completed Unive rsity of 00:00:[address] [facility] Hepatitis A Adult 2005-09-20 Completed [facility] ity of 00:00:[address] [facility] Hep B, Adol or Pedi 2005-09-20 Completed [facility]ive rsity of Dosage 00:00:[address] [facility] Pneumococcal 13 2005-09-20 Completed [facility]it [facility] of Conjugate, PCV13 00:00:00 [facility] dical (Prevnar 13) Branch Polio (IPV/OPV) 2005-09-20 Completed [facility] of 00:00:[address] [facility] DTaP, Unspecified 2005-09-20 Completed [facility] ity of Formulation 00:00:[address] [facility] HEPATITIS A 2005-09-20 Completed University of 00:00:[address] [facility] HIB 4 Dose Schedule 2005-09-20 Completed Unive rsity of 00:00:[address] [facility] Pneumococcal 7 2005-09-20 Completed University of Conjugate, PCV7 00:00:00 [facility] ical (Prevnar7) Branch IPV 2005-09-20 Completed University of 00:00:[address] [facility] DTAP 2005-09-20 Completed [facility] of 00:00:[address] [facility] HIB 3 Dose Schedule 2005-09-20 Completed Unive rsity of 00:00:[address] [facility] Hepatitis A Adult 2005-09-20 Completed [facility] ity of 00:00:[address] [facility] Hep B, Adol or Pedi 2005-09-20 Completed [facility] rsity of Dosage 00:00:[address] [facility] Pneumococcal 13 2005-09-20 Completed [facility]it [facility] of Conjugate, PCV13 00:00:00 [facility] dical (Prevnar 13) Branch Polio (IPV/OPV) 2005-09-20 Completed [facility] of 00:00:[address] [facility] DTaP, Unspecified 2005-09-20 Completed [facility] ity of Formulation 00:00:[address] [facility] HEPATITIS A 2005-09-20 Completed [facility] of 00:00:[address] [facility] HIB 4 Dose Schedule 2005-09-20 Completed Unive rsity of 00:00:[address] [facility] Pneumococcal 7 2005-09-20 Completed University of Conjugate, PCV7 00:00:00 [facility] (Prevnar7) Branch IPV 2005-09-20 Completed University of 00:00:[address] [facility] DTAP 2005-09-20 Completed University of 00:00:[address] [facility] HIB 3 Dose Schedule 2005-09-20 Completed [facility]ive rsity of 00:00:[address] [facility] Hepatitis A Adult 2005-09-20 Completed [facility] ity of 00:00:[address] [facility] Hep B, Adol or Pedi 2005-09-20 Completed [facility]ive rsity of Dosage 00:00:[address] [facility] Pneumococcal 13 2005-09-20 Completed [facility]it [facility] of Conjugate, PCV13 00:00:00 [facility] dical (Prevnar 13) Branch Polio (IPV/OPV) 2005-09-20 Completed [facility] of 00:00:[address] [facility] DTaP, Unspecified 2005-09-20 Completed [facility] ity of Formulation 00:00:[address] [facility] HEPATITIS A 2005-09-20 Completed University of 00:00:[address] [facility] HIB 4 Dose Schedule 2005-09-20 Completed Unive rsity of 00:00:[address] [facility] Pneumococcal 7 2005-09-20 Completed University of Conjugate, PCV7 00:00:00 [facility] ical (Prevnar7) Branch IPV 2005-09-20 Completed University of 00:00:[address] [facility] DTAP 2005-09-20 Completed University of 00:00:[address] [facility] HIB 3 Dose Schedule 2005-09-20 Completed Unive rsity of 00:00:[address] [facility] Hepatitis A Adult 2005-09-20 Completed [facility] ity of 00:00:[address] [facility] Hep B, Adol or Pedi 2005-09-20 Completed [facility]ive rsity of Dosage 00:00:[address] [facility] Pneumococcal 13 2005-09-20 Completed [facility]it [facility] of Conjugate, PCV13 00:00:00 [facility] dical (Prevnar 13) Branch Polio (IPV/OPV) 2005-09-20 Completed [facility] of 00:00:[address] [facility] DTaP, Unspecified 2005-09-20 Completed [facility] ity of Formulation 00:00:[address] [facility] HEPATITIS A 2005-09-20 Completed [facility] of 00:00:[address] [facility] HIB 4 Dose Schedule 2005-09-20 Completed [facility]ive rsity of 00:00:[address] [facility] Pneumococcal 7 2005-09-20 Completed University of Conjugate, PCV7 00:00:00 [facility] (Prevnar7) Branch IPV 2005-09-20 Completed University of 00:00:[address] [facility] DTAP 2005-09-20 Completed University of 00:00:[address] [facility] HIB 3 Dose Schedule 2005-09-20 Completed [facility]ive rsity of 00:00:[address] [facility] Hepatitis A Adult 2005-09-20 Completed [facility] ity of 00:00:[address] [facility] Hep B, Adol or Pedi 2005-09-20 Completed [facility]ive rsity of Dosage 00:00:[address] [facility] Pneumococcal 13 2005-09-20 Completed [facility]it [facility] of Conjugate, PCV13 00:00:00 [facility] dical (Prevnar 13) Branch Polio (IPV/OPV) 2005-09-20 Completed [facility] of 00:00:[address] [facility] DTaP, Unspecified 2005-09-20 Completed [facility] ity of Formulation 00:00:[address] [facility] HEPATITIS A 2005-09-20 Completed University of 00:00:[address] [facility] HIB 4 Dose Schedule 2005-09-20 Completed Unive rsity of 00:00:[address] [facility] Pneumococcal 7 2005-09-20 Completed University of Conjugate, PCV7 00:00:00 [facility] ical (Prevnar7) Branch IPV 2005-09-20 Completed University of 00:00:[address] [facility] DTAP 2005-09-20 Completed University of 00:00:[address] [facility] HIB 3 Dose Schedule 2005-09-20 Completed Unive rsity of 00:00:[address] [facility] Hepatitis A Adult 2005-09-20 Completed [facility] ity of 00:00:[address] [facility] Hep B, Adol or Pedi 2005-09-20 Completed [facility]ive rsity of Dosage 00:00:[address] [facility] Pneumococcal 13 2005-09-20 Completed [facility]it [facility] of Conjugate, PCV13 00:00:00 [facility] dical (Prevnar 13) Branch Polio (IPV/OPV) 2005-09-20 Completed [facility] of 00:00:[address] [facility] DTaP, Unspecified 2005-09-20 Completed [facility] ity of Formulation 00:00:[address] [facility] HEPATITIS A 2005-09-20 Completed [facility] of 00:00:[address] [facility] HIB 4 Dose Schedule 2005-09-20 Completed [facility]ive rsity of 00:00:[address] [facility] Pneumococcal 7 2005-09-20 Completed University of Conjugate, PCV7 00:00:00 [facility] (Prevnar7) Branch IPV 2005-09-20 Completed University of 00:00:[address] [facility] DTAP 2005-09-20 Completed University of 00:00:[address] [facility] HIB 3 Dose Schedule 2005-09-20 Completed [facility]ive rsity of 00:00:[address] [facility] Hepatitis A Adult 2005-09-20 Completed [facility] ity of 00:00:[address] [facility] Hep B, Adol or Pedi 2005-09-20 Completed [facility]ive rsity of Dosage 00:00:[address] [facility] Pneumococcal 13 2005-09-20 Completed [facility]it [facility] of Conjugate, PCV13 00:00:00 [facility] dical (Prevnar 13) Branch Polio (IPV/OPV) 2005-09-20 Completed [facility] of 00:00:[address] [facility] DTaP, Unspecified 2005-09-20 Completed [facility] ity of Formulation 00:00:[address] [facility] HEPATITIS A 2005-09-20 Completed University of 00:00:[address] [facility] HIB 4 Dose Schedule 2005-09-20 Completed Unive rsity of 00:00:[address] [facility] Pneumococcal 7 2005-09-20 Completed University of Conjugate, PCV7 00:00:00 [facility] ical (Prevnar7) Branch IPV 2005-09-20 Completed University of 00:00:[address] [facility] DTAP 2005-09-20 Completed University of 00:00:[address] [facility] HIB 3 Dose Schedule 2005-09-20 Completed Unive rsity of 00:00:[address] [facility] Hepatitis A Adult 2005-09-20 Completed [facility] ity of 00:00:[address] [facility] Hep B, Adol or Pedi 2005-09-20 Completed [facility]ive rsity of Dosage 00:00:[address] [facility] Pneumococcal 13 2005-09-20 Completed [facility]it [facility] of Conjugate, PCV13 00:00:00 [facility] dical (Prevnar 13) Branch Polio (IPV/OPV) 2005-09-20 Completed [facility] of 00:00:[address] [facility] DTaP, Unspecified 2005-09-20 Completed [facility] ity of Formulation 00:00:[address] [facility] HEPATITIS A 2005-09-20 Completed University of 00:00:[address] [facility] HIB 4 Dose Schedule 2005-09-20 Completed Unive rsity of 00:00:[address] [facility] Pneumococcal 7 2005-09-20 Completed University of Conjugate, PCV7 00:00:00 [facility] ical (Prevnar7) Branch IPV 2005-09-20 Completed University of 00:00:[address] [facility] DTAP 2004-07-22 Completed University of 00:00:[address] [facility] Hep B, Adol or Pedi 2004-07-22 Completed [facility]ive rsity of Dosage 00:00:[address] [facility] MMR 2004-07-22 Completed University of 00:00:[address] [facility] Polio (IPV/OPV) 2004-07-22 Completed [facility] of 00:00:[address] [facility] Varicella 2004-07-22 Completed University of (varivax)(chicken 00:00:00 [place] [facility] pox) Branch DTAP 2004-07-22 Completed University of 00:00:[address] [facility] Hep B, Adol or Pedi 2004-07-22 Completed [facility]ive rsity of Dosage 00:00:[address] [facility] MMR 2004-07-22 Completed University of 00:00:[address] [facility] Polio (IPV/OPV) 2004-07-22 Completed [facility] of 00:00:[address] [facility] Varicella 2004-07-22 Completed University of (varivax)(chicken 00:00:00 [place] [facility] pox) Branch DTAP 2004-07-22 Completed University of 00:00:[address] [facility] Hep B, Adol or Pedi 2004-07-22 Completed [facility]ive rsity of Dosage 00:00:[address] [facility] MMR 2004-07-22 Completed University of 00:00:[address] [facility] Polio (IPV/OPV) 2004-07-22 Completed [facility] of 00:00:[address] [facility] Varicella 2004-07-22 Completed [facility] of (varivax)(chicken 00:00:00 [place] [facility] pox) Branch DTAP 2004-07-22 Completed University of 00:00:[address] [facility] Hep B, Adol or Pedi 2004-07-22 Completed [facility]ive rsity of Dosage 00:00:[address] [facility] MMR 2004-07-22 Completed University of 00:00:[address] [facility] Polio (IPV/OPV) 2004-07-22 Completed [facility] of 00:00:[address] [facility] Varicella 2004-07-22 Completed [facility] of (varivax)(chicken 00:00:00 [place] [facility] pox) Branch DTAP 2004-07-22 Completed University of 00:00:[address] [facility] Hep B, Adol or Pedi 2004-07-22 Completed [facility]ive rsity of Dosage 00:00:[address] [facility] MMR 2004-07-22 Completed University of 00:00:[address] [facility] Polio (IPV/OPV) 2004-07-22 Completed [facility] of 00:00:[address] [facility] Varicella 2004-07-22 Completed University of (varivax)(chicken 00:00:00 [place] [facility] pox) Branch DTAP 2004-07-22 Completed University of 00:00:[address] [facility] Hep B, Adol or Pedi 2004-07-22 Completed Unive rsity of Dosage 00:00:[address] [facility] MMR 2004-07-22 Completed University of 00:00:[address] [facility] Polio (IPV/OPV) 2004-07-22 Completed [facility]it [facility] of 00:00:[address] [facility] Varicella 2004-07-22 Completed University of (varivax)(chicken 00:00:00 [facility] edical pox) Branch DTAP 2004-07-22 Completed University of 00:00:[address] [facility] Hep B, Adol or Pedi 2004-07-22 Completed Unive rsity of Dosage 00:00:[address] [facility] MMR 2004-07-22 Completed University of 00:00:[address] [facility] Polio (IPV/OPV) 2004-07-22 Completed [facility] of 00:00:[address] [facility] Varicella 2004-07-22 Completed [facility] of (varivax)(chicken 00:00:00 [place] [facility] pox) Branch DTAP 2004-07-22 Completed University of 00:00:[address] [facility] Hep B, Adol or Pedi 2004-07-22 Completed [facility]ive rsity of Dosage 00:00:[address] [facility] MMR 2004-07-22 Completed University of 00:00:[address] [facility] Polio (IPV/OPV) 2004-07-22 Completed [facility] of 00:00:[address] [facility] Varicella 2004-07-22 Completed [facility] of (varivax)(chicken 00:00:00 [place] [facility] pox) Branch DTAP 2004-07-22 Completed [facility] of 00:00:[address] [facility] Hep B, Adol or Pedi 2004-07-22 Completed [facility]ive rsity of Dosage 00:00:[address] [facility] MMR 2004-07-22 Completed University of 00:00:[address] [facility] Polio (IPV/OPV) 2004-07-22 Completed [facility]it [facility] of 00:00:[address] [facility] Varicella 2004-07-22 Completed University of (varivax)(chicken 00:00:00 [facility] edical pox) Branch DTAP 2004-07-22 Completed University of 00:00:[address] [facility] Hep B, Adol or Pedi 2004-07-22 Completed Unive rsity of Dosage 00:00:[address] [facility] MMR 2004-07-22 Completed University of 00:00:[address] [facility] Polio (IPV/OPV) 2004-07-22 Completed [facility] of 00:00:[address] [facility] Varicella 2004-07-22 Completed University of (varivax)(chicken 00:00:00 [facility] edical pox) Branch DTAP 2004-07-22 Completed University of 00:00:[address] [facility] Hep B, Adol or Pedi 2004-07-22 Completed Unive rsity of Dosage 00:00:[address] [facility] MMR 2004-07-22 Completed University of 00:00:[address] [facility] Polio (IPV/OPV) 2004-07-22 Completed [facility] of 00:00:[address] [facility] Varicella 2004-07-22 Completed [facility] of (varivax)(chicken 00:00:00 [place] [facility] pox) Branch DTAP 2004-07-22 Completed University of 00:00:[address] [facility] Hep B, Adol or Pedi 2004-07-22 Completed [facility]ive rsity of Dosage 00:00:[address] [facility] MMR 2004-07-22 Completed University of 00:00:[address] [facility] Polio (IPV/OPV) 2004-07-22 Completed [facility] of 00:00:[address] [facility] Varicella 2004-07-22 Completed University of (varivax)(chicken 00:00:00 [facility] edical pox) Branch DTAP 2004-07-22 Completed University of 00:00:[address] [facility] Hep B, Adol or Pedi 2004-07-22 Completed [facility]ive rsity of Dosage 00:00:00 [facility] MMR 2004-07-22 Completed University of 00:00:[address] [facility] Polio (IPV/OPV) 2004-07-22 Completed [facility] of 00:00:[address] [facility] Varicella 2004-07-22 Completed [facility] of (varivax)(chicken 00:00:00 [place] [facility] pox) Branch DTAP 2004-07-22 Completed [facility] of 00:00:[address] [facility] Hep B, Adol or Pedi 2004-07-22 Completed [facility]ive rsity of Dosage 00:00:[address] [facility] MMR 2004-07-22 Completed University of 00:00:[address] [facility] Polio (IPV/OPV) 2004-07-22 Completed [facility] of 00:00:[address] [facility] Varicella 2004-07-22 Completed [facility] of (varivax)(chicken 00:00:00 [place] [facility] pox) Branch DTAP 2004-07-22 Completed [facility] of 00:00:[address] [facility] Hep B, Adol or Pedi 2004-07-22 Completed [facility]ive rsity of Dosage 00:00:[address] [facility] MMR 2004-07-22 Completed University of 00:00:[address] [facility] Polio (IPV/OPV) 2004-07-22 Completed [facility] of 00:00:[address] [facility] Varicella 2004-07-22 Completed [facility] of (varivax)(chicken 00:00:00 [place] [facility] pox) Branch DTAP 2004-07-22 Completed [facility] of 00:00:[address] [facility] Hep B, Adol or Pedi 2004-07-22 Completed [facility] rsity of Dosage 00:00:[address] [facility] MMR 2004-07-22 Completed [facility] of 00:00:[address] [facility] Polio (IPV/OPV) 2004-07-22 Completed [facility] of 00:00:[address] [facility] Varicella 2004-07-22 Completed [facility] of (varivax)(chicken 00:00:00 [place] [facility] pox) Branch DTAP 2004-07-22 Completed [facility] of 00:00:[address] [facility] Hep B, Adol or Pedi 2004-07-22 Completed [facility]ive rsity of Dosage 00:00:[address] [facility] MMR 2004-07-22 Completed University of 00:00:[address] [facility] Polio (IPV/OPV) 2004-07-22 Completed [facility] of 00:00:[address] [facility] Varicella 2004-07-22 Completed [facility] of (varivax)(chicken 00:00:00 [place] [facility] pox) Branch DTAP 2004-07-22 Completed [facility] of 00:00:00 [facility] Hep B, Adol or Pedi 2004-07-22 Completed [facility]ive rsity of Dosage 00:00:[address] [facility] MMR 2004-07-22 Completed University of 00:00:[address] [facility] Polio (IPV/OPV) 2004-07-22 Completed [facility] of 00:00:[address] [facility] Varicella 2004-07-22 Completed [facility] of (varivax)(chicken 00:00:00 [place] [facility] pox) Branch DTAP 2004-07-22 Completed [facility] of 00:00:[address] [facility] Hep B, Adol or Pedi 2004-07-22 Completed [facility]ive rsity of Dosage 00:00:[address] [facility] MMR 2004-07-22 Completed University of 00:00:[address] [facility] Polio (IPV/OPV) 2004-07-22 Completed [facility] of 00:00:[address] [facility] Varicella 2004-07-22 Completed [facility] of (varivax)(chicken 00:00:00 [place] [facility] pox) Branch DTAP 2004-07-22 Completed [facility] of 00:00:[address] [facility] Hep B, Adol or Pedi 2004-07-22 Completed [facility]ive rsity of Dosage 00:00:[address] [facility] MMR 2004-07-22 Completed [facility] of 00:00:[address] [facility] Polio (IPV/OPV) 2004-07-22 Completed [facility] of 00:00:[address] [facility] Varicella 2004-07-22 Completed [facility] of (varivax)(chicken 00:00:00 [place] [facility] pox) Branch DTAP 2004-07-22 Completed [facility] of 00:00:[address] [facility] Hep B, Adol or Pedi 2004-07-22 Completed [facility]ive rsity of Dosage 00:00:[address] [facility] MMR 2004-07-22 Completed [facility] of 00:00:[address] [facility] Polio (IPV/OPV) 2004-07-22 Completed [facility] of 00:00:[address] [facility] Varicella 2004-07-22 Completed [facility] of (varivax)(chicken 00:00:00 [place] [facility] pox) Branch DTAP 2004-07-22 Completed [facility] of 00:00:[address] [facility] Hep B, Adol or Pedi 2004-07-22 Completed [facility] rsity of Dosage 00:00:[address] [facility] MMR 2004-07-22 Completed [facility] of 00:00:[address] [facility] Polio (IPV/OPV) 2004-07-22 Completed [facility] of 00:00:[address] [facility] Varicella 2004-07-22 Completed [facility] of (varivax)(chicken 00:00:00 [place] [facility] pox) Branch DTAP 2004-07-22 Completed [facility] of 00:00:[address] [facility] Hep B, Adol or Pedi 2004-07-22 Completed [facility] rs[facility] of Dosage 00:00:[address] [facility] MMR 2004-07-22 Completed University of 00:00:[address] [facility] Polio (IPV/OPV) 2004-07-22 Completed [facility] of 00:00:[address] [facility] Varicella 2004-07-22 Completed [facility] of (varivax)(chicken 00:00:00 [place] [facility] pox) Branch DTAP 2004-07-22 Completed [facility] of 00:00:[address] [facility] Hep B, Adol or Pedi 2004-07-22 Completed [facility] rsity of Dosage 00:00:[address] [facility] MMR 2004-07-22 Completed [facility] of 00:00:[address] [facility] Polio (IPV/OPV) 2004-07-22 Completed [facility] of 00:00:[address] [facility] Varicella 2004-07-22 Completed [facility] of (varivax)(chicken 00:00:00 [place] [facility] pox) Branch DTAP 2004-07-22 Completed [facility] of 00:00:[address] [facility] Hep B, Adol or Pedi 2004-07-22 Completed [facility]ive rsity of Dosage 00:00:[address] [facility] MMR 2004-07-22 Completed [facility] of 00:00:[address] [facility] Polio (IPV/OPV) 2004-07-22 Completed [facility] of 00:00:[address] [facility] Varicella 2004-07-22 Completed [facility] of (varivax)(chicken 00:00:00 [place] [facility] pox) Branch DTAP 2004-07-22 Completed [facility] of 00:00:00 [facility] Hep B, Adol or Pedi 2004-07-22 Completed Unive rsity of Dosage 00:00:[address] [facility] MMR 2004-07-22 Completed [facility] of 00:00:[address] [facility] Polio (IPV/OPV) 2004-07-22 Completed [facility] of 00:00:[address] [facility] Varicella 2004-07-22 Completed [facility] of (varivax)(chicken 00:00:00 [place] [facility] pox) Branch DTAP 2004-07-22 Completed [facility] of 00:00:[address] [facility] Hep B, Adol or Pedi 2004-07-22 Completed [facility]ive rs[facility] of Dosage 00:00:[address] [facility] MMR 2004-07-22 Completed [facility] of 00:00:[address] [facility] Polio (IPV/OPV) 2004-07-22 Completed [facility] of 00:00:[address] [facility] Varicella 2004-07-22 Completed [facility] of (varivax)(chicken 00:00:00 [place] [facility] pox) Branch DTAP 2004-07-22 Completed [facility] of 00:00:[address] [facility] Hep B, Adol or Pedi 2004-07-22 Completed [facility]ive rs[facility] of Dosage 00:00:[address] [facility] MMR 2004-07-22 Completed [facility] of 00:00:[address] [facility] Polio (IPV/OPV) 2004-07-22 Completed [facility] of 00:00:[address] [facility] Varicella 2004-07-22 Completed [facility] of (varivax)(chicken 00:00:00 [place] [facility] pox) Branch DTAP 2004-07-22 Completed [facility] of 00:00:[address] [facility] Hep B, Adol or Pedi 2004-07-22 Completed [facility]ive rs[facility] of Dosage 00:00:[address] [facility] MMR 2004-07-22 Completed [facility] of 00:00:[address] [facility] Polio (IPV/OPV) 2004-07-22 Completed [facility] of 00:00:[address] [facility] Varicella 2004-07-22 Completed [facility] of (varivax)(chicken 00:00:00 [place] [facility] pox) Branch DTAP 2004-07-22 Completed [facility] of 00:00:[address] [facility] Hep B, Adol or Pedi 2004-07-22 Completed [facility] Dosage 00:00:[address] [facility] MMR 2004-07-22 Completed [facility] 00:00:[address] [facility] Polio (IPV/OPV) 2004-07-22 Completed [facility] 00:00:[address] [facility] Varicella 2004-07-22 Completed [facility] (varivax)(chicken 00:00:00 [place] [facility] DTAP 2004-07-22 Completed [facility] 00:00:[address] [facility] Hep B, Adol or Pedi 2004-07-22 Completed [facility] Dosage 00:00:[address] [facility] MMR 2004-07-22 Completed [facility] of 00:00:[address] [facility] Polio (IPV/OPV) 2004-07-22 Completed [facility] 00:00:[address] [facility] Varicella 2004-07-22 Completed [facility] (varivax)(chicken 00:00:00 [place] [facility] DTAP 2004-07-22 Completed [facility] 00:00:[address] [facility] Hep B, Adol or Pedi 2004-07-22 Completed [facility] Dosage 00:00:[address] [facility] MMR 2004-07-22 Completed [facility] 00:00:[address] [facility] Polio (IPV/OPV) 2004-07-22 Completed [facility] 00:00:[address] [facility] Varicella 2004-07-22 Completed [facility] (varivax)(chicken 00:00:00 [place] [facility] DTAP 2004-07-22 Completed [facility] 00:00:[address] [facility] Hep B, Adol or Pedi 2004-07-22 Completed [facility] Dosage 00:00:[address] [facility] MMR 2004-07-22 Completed [facility] of 00:00:[address] [facility] Polio (IPV/OPV) 2004-07-22 Completed [facility] 00:00:[address] [facility] Varicella 2004-07-22 Completed [facility] (varivax)(chicken 00:00:00 [place] [facility] DTAP 2004-07-22 Completed [facility] 00:00:[address] [facility] Hep B, Adol or Pedi 2004-07-22 Completed [facility] Dosage 00:00:[address] [facility] MMR 2004-07-22 Completed [facility] 00:00:[address] [facility] Polio (IPV/OPV) 2004-07-22 Completed [facility] 00:00:[address] [facility] Varicella 2004-07-22 Completed [facility] (varivax)(chicken 00:00:00 [place] [facility] DTAP 2004-07-22 Completed [facility] 00:00:00 [facility] Hep B, Adol or Pedi 2004-07-22 Completed [facility] Dosage 00:00:[address] [facility] MMR 2004-07-22 Completed [facility] of 00:00:[address] [facility] Polio (IPV/OPV) 2004-07-22 Completed [facility] 00:00:[address] [facility] Varicella 2004-07-22 Completed [facility] (varivax)(chicken 00:00:00 [facility] edical pox) Branch DTAP 2004-07-22 Completed [facility] of 00:00:[address] [facility] Hep B, Adol or Pedi 2004-07-22 Completed [facility] Dosage 00:00:[address] [facility] MMR 2004-07-22 Completed [facility] of 00:00:[address] [facility] Polio (IPV/OPV) 2004-07-22 Completed [facility] 00:00:[address] [facility] Varicella 2004-07-22 Completed [facility] (varivax)(chicken 00:00:00 [facility] edical pox) Branch DTAP 2004-07-22 Completed [facility] of 00:00:[address] [facility] Hep B, Adol or Pedi 2004-07-22 Completed [facility] Dosage 00:00:[address] [facility] MMR 2004-07-22 Completed [facility] of 00:00:[address] [facility] Polio (IPV/OPV) 2004-07-22 Completed [facility] 00:00:[address] [facility] Varicella 2004-07-22 Completed [facility] (varivax)(chicken 00:00:00 [facility] edical pox) Branch DTAP 2004-07-22 Completed [facility] of 00:00:[address] [facility] Hep B, Adol or Pedi 2004-07-22 Completed [facility] Dosage 00:00:[address] [facility] MMR 2004-07-22 Completed [facility] of 00:00:[address] [facility] Polio (IPV/OPV) 2004-07-22 Completed [facility] 00:00:[address] [facility] Varicella 2004-07-22 Completed [facility] of (varivax)(chicken 00:00:00 [facility] edical pox) Branch DTaP, Unspecified 2004-07-22 Completed [facility] of Formulation 00:00:[address] [facility] IPV 2004-07-22 Completed [facility] of 00:00:[address] [facility] DTAP 2004-07-22 Completed [facility] of 00:00:[address] [facility] Hep B, Adol or Pedi 2004-07-22 Completed [facility] Dosage 00:00:[address] [facility] MMR 2004-07-22 Completed [facility] of 00:00:[address] [facility] Polio (IPV/OPV) 2004-07-22 Completed [facility] 00:00:[address] [facility] Varicella 2004-07-22 Completed [facility] (varivax)(chicken 00:00:00 [facility] edical pox) Branch DTaP, Unspecified 2004-07-22 Completed [facility] Formulation 00:00:[address] [facility] IPV 2004-07-22 Completed [facility] of 00:00:[address] [facility] DTAP 2004-07-22 Completed [facility] of 00:00:[address] [facility] Hep B, Adol or Pedi 2004-07-22 Completed [facility] Dosage 00:00:[address] [facility] MMR 2004-07-22 Completed [facility] of 00:00:[address] [facility] Polio (IPV/OPV) 2004-07-22 Completed [facility] 00:00:[address] [facility] Varicella 2004-07-22 Completed [facility] of (varivax)(chicken 00:00:00 [facility] edical pox) Branch DTaP, Unspecified 2004-07-22 Completed [facility] Formulation 00:00:[address] [facility] IPV 2004-07-22 Completed [facility] of 00:00:[address] [facility] DTAP 2004-07-22 Completed [facility] of 00:00:[address] [facility] Hep B, Adol or Pedi 2004-07-22 Completed [facility] Dosage 00:00:[address] [facility] MMR 2004-07-22 Completed [facility] of 00:00:[address] [facility] Polio (IPV/OPV) 2004-07-22 Completed [facility] 00:00:[address] [facility] Varicella 2004-07-22 Completed [facility] (varivax)(chicken 00:00:00 [place] [facility] DTaP, Unspecified 2004-07-22 Completed [facility] Formulation 00:00:[address] [facility] IPV 2004-07-22 Completed [facility] of 00:00:[address] [facility] DTAP 2004-07-22 Completed [facility] of 00:00:[address] [facility] Hep B, Adol or Pedi 2004-07-22 Completed [facility] Dosage 00:00:[address] [facility] MMR 2004-07-22 Completed [facility] of 00:00:[address] [facility] Polio (IPV/OPV) 2004-07-22 Completed [facility] 00:00:[address] [facility] Varicella 2004-07-22 Completed [facility] (varivax)(chicken 00:00:00 [facility] edical pox) Branch DTaP, Unspecified 2004-07-22 Completed [facility] Formulation 00:00:[address] [facility] IPV 2004-07-22 Completed [facility] of 00:00:[address] [facility] DTAP 2004-07-22 Completed [facility] of 00:00:[address] [facility] Hep B, Adol or Pedi 2004-07-22 Completed [facility] Dosage 00:00:[address] [facility] MMR 2004-07-22 Completed [facility] of 00:00:[address] [facility] Polio (IPV/OPV) 2004-07-22 Completed [facility] 00:00:[address] [facility] Varicella 2004-07-22 Completed [facility] (varivax)(chicken 00:00:00 [place] [facility] DTaP, Unspecified 2004-07-22 Completed [facility] Formulation 00:00:[address] [facility] IPV 2004-07-22 Completed [facility] of 00:00:[address] [facility] DTAP 2004-07-22 Completed [facility] of 00:00:[address] [facility] Hep B, Adol or Pedi 2004-07-22 Completed [facility] Dosage 00:00:[address] [facility] MMR 2004-07-22 Completed [facility] of 00:00:[address] [facility] Polio (IPV/OPV) 2004-07-22 Completed [facility] 00:00:[address] [facility] Varicella 2004-07-22 Completed [facility] (varivax)(chicken 00:00:00 [place] [facility] DTaP, Unspecified 2004-07-22 Completed [facility] Formulation 00:00:[address] [facility] IPV 2004-07-22 Completed [facility] of 00:00:[address] [facility] DTAP 2004-07-22 Completed [facility] of 00:00:[address] [facility] Hep B, Adol or Pedi 2004-07-22 Completed [facility] Dosage 00:00:[address] [facility] MMR 2004-07-22 Completed [facility] of 00:00:[address] [facility] Polio (IPV/OPV) 2004-07-22 Completed [facility] 00:00:[address] [facility] Varicella 2004-07-22 Completed [facility] (varivax)(chicken 00:00:00 [place] [facility] DTaP, Unspecified 2004-07-22 Completed [facility] Formulation 00:00:[address] [facility] IPV 2004-07-22 Completed [facility] of 00:00:[address] [facility] DTAP 2004-07-22 Completed [facility] of 00:00:[address] [facility] Hep B, Adol or Pedi 2004-07-22 Completed [facility] Dosage 00:00:[address] [facility] MMR 2004-07-22 Completed [facility] of 00:00:[address] [facility] Polio (IPV/OPV) 2004-07-22 Completed [facility] 00:00:[address] [facility] Varicella 2004-07-22 Completed [facility] (varivax)(chicken 00:00:00 [facility] edical pox) Branch DTaP, Unspecified 2004-07-22 Completed [facility] Formulation 00:00:[address] [facility] IPV 2004-07-22 Completed [facility] of 00:00:[address] [facility] DTAP 2004-07-22 Completed [facility] of 00:00:[address] [facility] Hep B, Adol or Pedi 2004-07-22 Completed [facility] Dosage 00:00:[address] [facility] MMR 2004-07-22 Completed [facility] of 00:00:[address] [facility] Polio (IPV/OPV) 2004-07-22 Completed [facility] 00:00:[address] [facility] Varicella 2004-07-22 Completed [facility] (varivax)(chicken 00:00:00 [place] [facility] DTaP, Unspecified 2004-07-22 Completed [facility] Formulation 00:00:[address] [facility] IPV 2004-07-22 Completed [facility] of 00:00:[address] [facility] DTAP 2004-07-22 Completed [facility] 00:00:00 [facility] Hep B, Adol or Pedi 2004-07-22 Completed [facility] Dosage 00:00:[address] [facility] MMR 2004-07-22 Completed [facility] of 00:00:[address] [facility] Polio (IPV/OPV) 2004-07-22 Completed [facility] 00:00:[address] [facility] Varicella 2004-07-22 Completed [facility] (varivax)(chicken 00:00:00 [place] [facility] DTaP, Unspecified 2004-07-22 Completed [facility] Formulation 00:00:[address] [facility] IPV 2004-07-22 Completed [facility] of 00:00:[address] [facility] DTAP 2004-07-22 Completed [facility] of 00:00:[address] [facility] Hep B, Adol or Pedi 2004-07-22 Completed [facility] Dosage 00:00:[address] [facility] MMR 2004-07-22 Completed [facility] of 00:00:[address] [facility] Polio (IPV/OPV) 2004-07-22 Completed [facility] 00:00:[address] [facility] Varicella 2004-07-22 Completed [facility] (varivax)(chicken 00:00:00 [place] [facility] DTaP, Unspecified 2004-07-22 Completed [facility] Formulation 00:00:[address] [facility] IPV 2004-07-22 Completed [facility] of 00:00:[address] [facility] DTAP 2004-07-22 Completed [facility] of 00:00:[address] [facility] Hep B, Adol or Pedi 2004-07-22 Completed [facility] Dosage 00:00:[address] [facility] MMR 2004-07-22 Completed [facility] of 00:00:[address] [facility] Polio (IPV/OPV) 2004-07-22 Completed [facility] 00:00:[address] [facility] Varicella 2004-07-22 Completed [facility] (varivax)(chicken 00:00:00 [place] [facility] DTaP, Unspecified 2004-07-22 Completed [facility] Formulation 00:00:[address] [facility] IPV 2004-07-22 Completed [facility] of 00:00:[address] [facility] DTAP 2004-07-22 Completed [facility] 00:00:00 [facility] Hep B, Adol or Pedi 2004-07-22 Completed [facility] of Dosage 00:00:[address] [facility] MMR 2004-07-22 Completed [facility] of 00:00:[address] [facility] Polio (IPV/OPV) 2004-07-22 Completed [facility] 00:00:[address] [facility] Varicella 2004-07-22 Completed [facility] (varivax)(chicken 00:00:00 [place] [facility] DTaP, Unspecified 2004-07-22 Completed [facility] Formulation 00:00:[address] [facility] IPV 2004-07-22 Completed [facility] of 00:00:[address] [facility] DTAP 2004-07-22 Completed [facility] of 00:00:[address] [facility] Hep B, Adol or Pedi 2004-07-22 Completed [facility] Dosage 00:00:[address] [facility] MMR 2004-07-22 Completed [facility] of 00:00:[address] [facility] Polio (IPV/OPV) 2004-07-22 Completed [facility] 00:00:[address] [facility] Varicella 2004-07-22 Completed [facility] of (varivax)(chicken 00:00:00 [facility] edical pox) Branch DTaP, Unspecified 2004-07-22 Completed [facility] Formulation 00:00:[address] [facility] IPV 2004-07-22 Completed [facility] of 00:00:[address] [facility] DTAP 2004-07-22 Completed [facility] of 00:00:[address] [facility] Hep B, Adol or Pedi 2004-07-22 Completed [facility] Dosage 00:00:[address] [facility] MMR 2004-07-22 Completed [facility] of 00:00:[address] [facility] Polio (IPV/OPV) 2004-07-22 Completed [facility] 00:00:[address] [facility] Varicella 2004-07-22 Completed [facility] (varivax)(chicken 00:00:00 [place] [facility] DTaP, Unspecified 2004-07-22 Completed [facility] Formulation 00:00:[address] [facility] IPV 2004-07-22 Completed [facility] of 00:00:[address] [facility] DTAP 2004-07-22 Completed [facility] of 00:00:[address] [facility] Hep B, Adol or Pedi 2004-07-22 Completed [facility] Dosage 00:00:[address] [facility] MMR 2004-07-22 Completed [facility] of 00:00:[address] [facility] Polio (IPV/OPV) 2004-07-22 Completed [facility] 00:00:[address] [facility] Varicella 2004-07-22 Completed [facility] (varivax)(chicken 00:00:00 [place] [facility] DTaP, Unspecified 2004-07-22 Completed [facility] Formulation 00:00:[address] [facility] IPV 2004-07-22 Completed [facility] of 00:00:[address] [facility] DTAP 2004-07-22 Completed [facility] of 00:00:[address] [facility] Hep B, Adol or Pedi 2004-07-22 Completed [facility] Dosage 00:00:[address] [facility] MMR 2004-07-22 Completed [facility] of 00:00:[address] [facility] Polio (IPV/OPV) 2004-07-22 Completed [facility] 00:00:[address] [facility] Varicella 2004-07-22 Completed [facility] (varivax)(chicken 00:00:00 [facility] edical pox) Branch DTaP, Unspecified 2004-07-22 Completed [facility] Formulation 00:00:[address] [facility] IPV 2004-07-22 Completed [facility] 00:00:00 [facility] DTAP 2004-07-22 Completed [facility] of 00:00:[address] [facility] Hep B, Adol or Pedi 2004-07-22 Completed [facility] Dosage 00:00:[address] [facility] MMR 2004-07-22 Completed [facility] of 00:00:[address] [facility] Polio (IPV/OPV) 2004-07-22 Completed [facility] 00:00:[address] [facility] Varicella 2004-07-22 Completed [facility] (varivax)(chicken 00:00:00 [facility] edical pox) Branch DTaP, Unspecified 2004-07-22 Completed [facility] Formulation 00:00:[address] [facility] IPV 2004-07-22 Completed [facility] of 00:00:[address] [facility] DTAP 2004-07-22 Completed [facility] 00:00:00 [facility] Hep B, Adol or Pedi 2004-07-22 Completed [facility] Dosage 00:00:[address] [facility] MMR 2004-07-22 Completed [facility] of 00:00:[address] [facility] Polio (IPV/OPV) 2004-07-22 Completed [facility] 00:00:[address] [facility] Varicella 2004-07-22 Completed [facility] (varivax)(chicken 00:00:00 [place] [facility] DTaP, Unspecified 2004-07-22 Completed [facility] Formulation 00:00:[address] [facility] IPV 2004-07-22 Completed [facility] of 00:00:[address] [facility] DTAP 2004-07-22 Completed [facility] of 00:00:[address] [facility] Hep B, Adol or Pedi 2004-07-22 Completed [facility] Dosage 00:00:[address] [facility] MMR 2004-07-22 Completed [facility] of 00:00:[address] [facility] Polio (IPV/OPV) 2004-07-22 Completed [facility] 00:00:[address] [facility] Varicella 2004-07-22 Completed [facility] (varivax)(chicken 00:00:00 [facility] edical pox) Branch DTaP, Unspecified 2004-07-22 Completed [facility] Formulation 00:00:[address] [facility] IPV 2004-07-22 Completed [facility] of 00:00:[address] [facility] DTAP 2004-07-22 Completed [facility] of 00:00:[address] [facility] Hep B, Adol or Pedi 2004-07-22 Completed [facility] Dosage 00:00:[address] [facility] MMR 2004-07-22 Completed [facility] of 00:00:[address] [facility] Polio (IPV/OPV) 2004-07-22 Completed [facility] 00:00:[address] [facility] Varicella 2004-07-22 Completed [facility] of (varivax)(chicken 00:00:00 [facility] edical pox) Branch DTaP, Unspecified 2004-07-22 Completed [facility] Formulation 00:00:[address] [facility] IPV 2004-07-22 Completed [facility] of 00:00:[address] [facility] DTAP 2004-07-22 Completed [facility] of 00:00:[address] [facility] Hep B, Adol or Pedi 2004-07-22 Completed [facility] Dosage 00:00:[address] [facility] MMR 2004-07-22 Completed [facility] of 00:00:[address] [facility] Polio (IPV/OPV) 2004-07-22 Completed [facility] 00:00:[address] [facility] Varicella 2004-07-22 Completed [facility] (varivax)(chicken 00:00:00 [place] [facility] DTaP, Unspecified 2004-07-22 Completed [facility] Formulation 00:00:[address] [facility] IPV 2004-07-22 Completed [facility] of 00:00:[address] [facility] DTAP 2004-07-22 Completed [facility] of 00:00:[address] [facility] Hep B, Adol or Pedi 2004-07-22 Completed [facility] of Dosage 00:00:[address] [facility] MMR 2004-07-22 Completed [facility] of 00:00:[address] [facility] Polio (IPV/OPV) 2004-07-22 Completed [facility] 00:00:[address] [facility] Varicella 2004-07-22 Completed [facility] (varivax)(chicken 00:00:00 [facility] edical pox) Branch DTaP, Unspecified 2004-07-22 Completed [facility] Formulation 00:00:[address] [facility] IPV 2004-07-22 Completed [facility] of 00:00:[address] [facility] DTAP 2004-07-22 Completed [facility] of 00:00:[address] [facility] Hep B, Adol or Pedi 2004-07-22 Completed [facility] of Dosage 00:00:[address] [facility] MMR 2004-07-22 Completed [facility] of 00:00:[address] [facility] Polio (IPV/OPV) 2004-07-22 Completed [facility] 00:00:[address] [facility] Varicella 2004-07-22 Completed [facility] (varivax)(chicken 00:00:00 [place] [facility] DTaP, Unspecified 2004-07-22 Completed [facility] Formulation 00:00:[address] [facility] IPV 2004-07-22 Completed [facility] of 00:00:[address] [facility] DTAP 2004-07-22 Completed [facility] of 00:00:[address] [facility] Hep B, Adol or Pedi 2004-07-22 Completed [facility] of Dosage 00:00:[address] [facility] MMR 2004-07-22 Completed [facility] of 00:00:[address] [facility] Polio (IPV/OPV) 2004-07-22 Completed [facility] 00:00:[address] [facility] Varicella 2004-07-22 Completed [facility] (varivax)(chicken 00:00:00 [place] [facility] DTaP, Unspecified 2004-07-22 Completed [facility] Formulation 00:00:[address] [facility] IPV 2004-07-22 Completed [facility] of 00:00:[address] [facility] DTAP 2003-06-04 Completed [facility] of 00:00:[address] [facility] HIB 3 Dose Schedule 2003-06-04 Completed [facility] of 00:00:[address] [facility] Hep B, Adol or Pedi 2003-06-04 Completed [facility] of Dosage 00:00:[address] [facility] MMR 2003-06-04 Completed [facility] of 00:00:[address] [facility] Polio (IPV/OPV) 2003-06-04 Completed [facility] 00:00:[address] [facility] Varicella 2003-06-04 Completed [facility] (varivax)(chicken 00:00:00 [place] [facility] DTAP 2003-06-04 Completed [facility] of 00:00:[address] [facility] HIB 3 Dose Schedule 2003-06-04 Completed [facility] of 00:00:[address] [facility] Hep B, Adol or Pedi 2003-06-04 Completed [facility] of Dosage 00:00:[address] [facility] MMR 2003-06-04 Completed [facility] of 00:00:[address] [facility] Polio (IPV/OPV) 2003-06-04 Completed [facility] 00:00:[address] [facility] Varicella 2003-06-04 Completed [facility] (varivax)(chicken 00:00:00 [place] [facility] DTAP 2003-06-04 Completed [facility] of 00:00:[address] [facility] HIB 3 Dose Schedule 2003-06-04 Completed [facility] of 00:00:[address] [facility] Hep B, Adol or Pedi 2003-06-04 Completed [facility] of Dosage 00:00:[address] [facility] MMR 2003-06-04 Completed [facility] of 00:00:[address] [facility] Polio (IPV/OPV) 2003-06-04 Completed [facility] 00:00:[address] [facility] Varicella 2003-06-04 Completed [facility] (varivax)(chicken 00:00:00 [place] [facility] DTAP 2003-06-04 Completed [facility] of 00:00:[address] [facility] HIB 3 Dose Schedule 2003-06-04 Completed [facility] of 00:00:[address] [facility] Hep B, Adol or Pedi 2003-06-04 Completed [facility] of Dosage 00:00:[address] [facility] MMR 2003-06-04 Completed [facility] of 00:00:[address] [facility] Polio (IPV/OPV) 2003-06-04 Completed [facility] 00:00:[address] [facility] Varicella 2003-06-04 Completed [facility] (varivax)(chicken 00:00:00 [place] [facility] DTAP 2003-06-04 Completed [facility] of 00:00:[address] [facility] HIB 3 Dose Schedule 2003-06-04 Completed [facility] of 00:00:[address] [facility] Hep B, Adol or Pedi 2003-06-04 Completed [facility] of Dosage 00:00:[address] [facility] MMR 2003-06-04 Completed [facility] of 00:00:[address] [facility] Polio (IPV/OPV) 2003-06-04 Completed [facility] 00:00:[address] [facility] Varicella 2003-06-04 Completed [facility] (varivax)(chicken 00:00:00 [place] [facility] DTAP 2003-06-04 Completed [facility] of 00:00:[address] [facility] HIB 3 Dose Schedule 2003-06-04 Completed [facility] of 00:00:[address] [facility] Hep B, Adol or Pedi 2003-06-04 Completed [facility] of Dosage 00:00:[address] [facility] MMR 2003-06-04 Completed [facility] of 00:00:[address] [facility] Polio (IPV/OPV) 2003-06-04 Completed [facility] 00:00:[address] [facility] Varicella 2003-06-04 Completed [facility] (varivax)(chicken 00:00:00 [place] [facility] DTAP 2003-06-04 Completed [facility] of 00:00:[address] [facility] HIB 3 Dose Schedule 2003-06-04 Completed [facility] of 00:00:[address] [facility] Hep B, Adol or Pedi 2003-06-04 Completed [facility] of Dosage 00:00:00 [facility] MMR 2003-06-04 Completed [facility] 00:00:[address] [facility] Polio (IPV/OPV) 2003-06-04 Completed [facility] 00:00:[address] [facility] Varicella 2003-06-04 Completed [facility] of (varivax)(chicken 00:00:00 [place] [facility] DTAP 2003-06-04 Completed [facility] of 00:00:[address] [facility] HIB 3 Dose Schedule 2003-06-04 Completed [facility]ity of 00:00:[address] [facility] Hep B, Adol or Pedi 2003-06-04 Completed [facility] of Dosage 00:00:[address] [facility] MMR 2003-06-04 Completed [facility] of 00:00:[address] [facility] Polio (IPV/OPV) 2003-06-04 Completed [facility] 00:00:[address] [facility] Varicella 2003-06-04 Completed [facility] (varivax)(chicken 00:00:00 [place] [facility] DTAP 2003-06-04 Completed [facility] of 00:00:[address] [facility] HIB 3 Dose Schedule 2003-06-04 Completed [facility] rs[facility] of 00:00:[address] [facility] Hep B, Adol or Pedi 2003-06-04 Completed [facility] of Dosage 00:00:[address] [facility] MMR 2003-06-04 Completed [facility] 00:00:[address] [facility] Polio (IPV/OPV) 2003-06-04 Completed [facility] 00:00:[address] [facility] Varicella 2003-06-04 Completed [facility] (varivax)(chicken 00:00:00 [place] [facility] DTAP 2003-06-04 Completed [facility] of 00:00:[address] [facility] HIB 3 Dose Schedule 2003-06-04 Completed [facility] rs[facility] of 00:00:[address] [facility] Hep B, Adol or Pedi 2003-06-04 Completed [facility] of Dosage 00:00:[address] [facility] MMR 2003-06-04 Completed [facility] of 00:00:[address] [facility] Polio (IPV/OPV) 2003-06-04 Completed [facility] 00:00:[address] [facility] Varicella 2003-06-04 Completed [facility] (varivax)(chicken 00:00:00 [place] [facility] DTAP 2003-06-04 Completed [facility] 00:00:[address] [facility] HIB 3 Dose Schedule 2003-06-04 Completed [facility] rs[facility] of 00:00:[address] [facility] Hep B, Adol or Pedi 2003-06-04 Completed [facility] of Dosage 00:00:[address] [facility] MMR 2003-06-04 Completed [facility] of 00:00:[address] [facility] Polio (IPV/OPV) 2003-06-04 Completed [facility] 00:00:[address] [facility] Varicella 2003-06-04 Completed [facility] (varivax)(chicken 00:00:00 [place] [facility] DTAP 2003-06-04 Completed [facility] of 00:00:[address] [facility] HIB 3 Dose Schedule 2003-06-04 Completed [facility] rs[facility] of 00:00:[address] [facility] Hep B, Adol or Pedi 2003-06-04 Completed [facility] of Dosage 00:00:[address] [facility] MMR 2003-06-04 Completed [facility] 00:00:[address] [facility] Polio (IPV/OPV) 2003-06-04 Completed [facility] 00:00:[address] [facility] Varicella 2003-06-04 Completed [facility] (varivax)(chicken 00:00:00 [place] [facility] DTAP 2003-06-04 Completed [facility] of 00:00:[address] [facility] HIB 3 Dose Schedule 2003-06-04 Completed [facility] rs[facility] of 00:00:[address] [facility] Hep B, Adol or Pedi 2003-06-04 Completed [facility] of Dosage 00:00:[address] [facility] MMR 2003-06-04 Completed [facility] 00:00:[address] [facility] Polio (IPV/OPV) 2003-06-04 Completed [facility] 00:00:[address] [facility] Varicella 2003-06-04 Completed [facility] (varivax)(chicken 00:00:00 [place] [facility] DTAP 2003-06-04 Completed [facility] 00:00:[address] [facility] HIB 3 Dose Schedule 2003-06-04 Completed [facility] of 00:00:[address] [facility] Hep B, Adol or Pedi 2003-06-04 Completed [facility] of Dosage 00:00:[address] [facility] MMR 2003-06-04 Completed [facility] of 00:00:[address] [facility] Polio (IPV/OPV) 2003-06-04 Completed [facility] 00:00:[address] [facility] Varicella 2003-06-04 Completed [facility] (varivax)(chicken 00:00:00 [place] [facility] DTAP 2003-06-04 Completed [facility] of 00:00:[address] [facility] HIB 3 Dose Schedule 2003-06-04 Completed [facility] rs[facility] of 00:00:[address] [facility] Hep B, Adol or Pedi 2003-06-04 Completed [facility] of Dosage 00:00:[address] [facility] MMR 2003-06-04 Completed [facility] of 00:00:[address] [facility] Polio (IPV/OPV) 2003-06-04 Completed [facility] 00:00:[address] [facility] Varicella 2003-06-04 Completed [facility] (varivax)(chicken 00:00:00 [place] [facility] DTAP 2003-06-04 Completed [facility] of 00:00:[address] [facility] HIB 3 Dose Schedule 2003-06-04 Completed [facility] rs[facility] of 00:00:[address] [facility] Hep B, Adol or Pedi 2003-06-04 Completed [facility] of Dosage 00:00:[address] [facility] MMR 2003-06-04 Completed [facility] of 00:00:[address] [facility] Polio (IPV/OPV) 2003-06-04 Completed [facility] 00:00:[address] [facility] Varicella 2003-06-04 Completed [facility] (varivax)(chicken 00:00:00 [place] [facility] DTAP 2003-06-04 Completed [facility] of 00:00:[address] [facility] HIB 3 Dose Schedule 2003-06-04 Completed [facility] rs[facility] of 00:00:[address] [facility] Hep B, Adol or Pedi 2003-06-04 Completed [facility] of Dosage 00:00:[address] [facility] MMR 2003-06-04 Completed [facility] of 00:00:[address] [facility] Polio (IPV/OPV) 2003-06-04 Completed [facility] 00:00:[address] [facility] Varicella 2003-06-04 Completed [facility] (varivax)(chicken 00:00:00 [place] [facility] DTAP 2003-06-04 Completed [facility] of 00:00:[address] [facility] HIB 3 Dose Schedule 2003-06-04 Completed [facility] of 00:00:[address] [facility] Hep B, Adol or Pedi 2003-06-04 Completed [facility] of Dosage 00:00:[address] [facility] MMR 2003-06-04 Completed [facility] of 00:00:[address] [facility] Polio (IPV/OPV) 2003-06-04 Completed [facility] 00:00:[address] [facility] Varicella 2003-06-04 Completed [facility] (varivax)(chicken 00:00:00 [place] [facility] DTAP 2003-06-04 Completed [facility] of 00:00:[address] [facility] HIB 3 Dose Schedule 2003-06-04 Completed [facility] rs[facility] of 00:00:[address] [facility] Hep B, Adol or Pedi 2003-06-04 Completed [facility] of Dosage 00:00:[address] [facility] MMR 2003-06-04 Completed [facility] of 00:00:[address] [facility] Polio (IPV/OPV) 2003-06-04 Completed [facility] 00:00:[address] [facility] Varicella 2003-06-04 Completed [facility] (varivax)(chicken 00:00:00 [facility] edical pox) Branch DTAP 2003-06-04 Completed [facility] of 00:00:[address] [facility] HIB 3 Dose Schedule 2003-06-04 Completed [facility] rs[facility] of 00:00:[address] [facility] Hep B, Adol or Pedi 2003-06-04 Completed [facility] rs[facility] of Dosage 00:00:[address] [facility] MMR 2003-06-04 Completed [facility] of 00:00:[address] [facility] Polio (IPV/OPV) 2003-06-04 Completed [facility] 00:00:[address] [facility] Varicella 2003-06-04 Completed [facility] (varivax)(chicken 00:00:00 [place] [facility] DTAP 2003-06-04 Completed [facility] of 00:00:[address] [facility] HIB 3 Dose Schedule 2003-06-04 Completed [facility] rs[facility] of 00:00:[address] [facility] Hep B, Adol or Pedi 2003-06-04 Completed [facility] rs[facility] of Dosage 00:00:[address] [facility] MMR 2003-06-04 Completed [facility] of 00:00:[address] [facility] Polio (IPV/OPV) 2003-06-04 Completed [facility] 00:00:[address] [facility] Varicella 2003-06-04 Completed [facility] (varivax)(chicken 00:00:00 [place] [facility] DTAP 2003-06-04 Completed [facility] of 00:00:[address] [facility] HIB 3 Dose Schedule 2003-06-04 Completed [facility] rs[facility] of 00:00:[address] [facility] Hep B, Adol or Pedi 2003-06-04 Completed [facility] rs[facility] of Dosage 00:00:[address] [facility] MMR 2003-06-04 Completed [facility] of 00:00:[address] [facility] Polio (IPV/OPV) 2003-06-04 Completed [facility] 00:00:[address] [facility] Varicella 2003-06-04 Completed [facility] (varivax)(chicken 00:00:00 [place] [facility] DTAP 2003-06-04 Completed [facility] of 00:00:[address] [facility] HIB 3 Dose Schedule 2003-06-04 Completed [facility] rs[facility] of 00:00:[address] [facility] Hep B, Adol or Pedi 2003-06-04 Completed [facility] rs[facility] of Dosage 00:00:[address] [facility] MMR 2003-06-04 Completed [facility] of 00:00:[address] [facility] Polio (IPV/OPV) 2003-06-04 Completed [facility] 00:00:[address] [facility] Varicella 2003-06-04 Completed [facility] (varivax)(chicken 00:00:00 [place] [facility] DTAP 2003-06-04 Completed [facility] of 00:00:[address] [facility] HIB 3 Dose Schedule 2003-06-04 Completed [facility] rs[facility] of 00:00:[address] [facility] Hep B, Adol or Pedi 2003-06-04 Completed [facility] of Dosage 00:00:[address] [facility] MMR 2003-06-04 Completed [facility] of 00:00:[address] [facility] Polio (IPV/OPV) 2003-06-04 Completed [facility] 00:00:[address] [facility] Varicella 2003-06-04 Completed [facility] (varivax)(chicken 00:00:00 [place] [facility] DTAP 2003-06-04 Completed [facility] of 00:00:[address] [facility] HIB 3 Dose Schedule 2003-06-04 Completed [facility] rs[facility] of 00:00:[address] [facility] Hep B, Adol or Pedi 2003-06-04 Completed [facility] of Dosage 00:00:[address] [facility] MMR 2003-06-04 Completed [facility] of 00:00:[address] [facility] Polio (IPV/OPV) 2003-06-04 Completed [facility] 00:00:[address] [facility] Varicella 2003-06-04 Completed [facility] (varivax)(chicken 00:00:00 [place] [facility] DTAP 2003-06-04 Completed [facility] of 00:00:[address] [facility] HIB 3 Dose Schedule 2003-06-04 Completed [facility] of 00:00:[address] [facility] Hep B, Adol or Pedi 2003-06-04 Completed [facility] of Dosage 00:00:[address] [facility] MMR 2003-06-04 Completed [facility] of 00:00:[address] [facility] Polio (IPV/OPV) 2003-06-04 Completed [facility] 00:00:[address] [facility] Varicella 2003-06-04 Completed [facility] (varivax)(chicken 00:00:00 [place] [facility] DTAP 2003-06-04 Completed [facility] of 00:00:[address] [facility] HIB 3 Dose Schedule 2003-06-04 Completed [facility] of 00:00:[address] [facility] Hep B, Adol or Pedi 2003-06-04 Completed [facility] of Dosage 00:00:[address] [facility] MMR 2003-06-04 Completed [facility] of 00:00:[address] [facility] Polio (IPV/OPV) 2003-06-04 Completed [facility] 00:00:[address] [facility] Varicella 2003-06-04 Completed [facility] (varivax)(chicken 00:00:00 [place] [facility] DTAP 2003-06-04 Completed [facility] of 00:00:[address] [facility] HIB 3 Dose Schedule 2003-06-04 Completed [facility] of 00:00:[address] [facility] Hep B, Adol or Pedi 2003-06-04 Completed [facility] of Dosage 00:00:[address] [facility] MMR 2003-06-04 Completed [facility] 00:00:[address] [facility] Polio (IPV/OPV) 2003-06-04 Completed [facility] 00:00:[address] [facility] Varicella 2003-06-04 Completed [facility] (varivax)(chicken 00:00:00 [place] [facility] DTAP 2003-06-04 Completed [facility] of 00:00:[address] [facility] HIB 3 Dose Schedule 2003-06-04 Completed [facility] rs[facility] of 00:00:[address] [facility] Hep B, Adol or Pedi 2003-06-04 Completed [facility] rs[facility] of Dosage 00:00:[address] [facility] MMR 2003-06-04 Completed [facility] of 00:00:[address] [facility] Polio (IPV/OPV) 2003-06-04 Completed [facility] 00:00:[address] [facility] Varicella 2003-06-04 Completed [facility] (varivax)(chicken 00:00:00 [place] [facility] DTAP 2003-06-04 Completed [facility] of 00:00:[address] [facility] HIB 3 Dose Schedule 2003-06-04 Completed [facility] rs[facility] of 00:00:[address] [facility] Hep B, Adol or Pedi 2003-06-04 Completed [facility] of Dosage 00:00:[address] [facility] MMR 2003-06-04 Completed [facility] of 00:00:[address] [facility] Polio (IPV/OPV) 2003-06-04 Completed [facility] 00:00:[address] [facility] Varicella 2003-06-04 Completed [facility] (varivax)(chicken 00:00:00 [place] [facility] DTAP 2003-06-04 Completed [facility] of 00:00:[address] [facility] HIB 3 Dose Schedule 2003-06-04 Completed [facility] rs[facility] of 00:00:[address] [facility] Hep B, Adol or Pedi 2003-06-04 Completed [facility] of Dosage 00:00:[address] [facility] MMR 2003-06-04 Completed [facility] of 00:00:[address] [facility] Polio (IPV/OPV) 2003-06-04 Completed [facility] 00:00:[address] [facility] Varicella 2003-06-04 Completed [facility] (varivax)(chicken 00:00:00 [place] [facility] DTAP 2003-06-04 Completed [facility] 00:00:[address] [facility] HIB 3 Dose Schedule 2003-06-04 Completed [facility] of 00:00:[address] [facility] Hep B, Adol or Pedi 2003-06-04 Completed [facility] of Dosage 00:00:[address] [facility] MMR 2003-06-04 Completed [facility] 00:00:[address] [facility] Polio (IPV/OPV) 2003-06-04 Completed [facility] 00:00:[address] [facility] Varicella 2003-06-04 Completed [facility] (varivax)(chicken 00:00:00 [place] [facility] DTAP 2003-06-04 Completed [facility] of 00:00:[address] [facility] HIB 3 Dose Schedule 2003-06-04 Completed [facility] of 00:00:[address] [facility] Hep B, Adol or Pedi 2003-06-04 Completed [facility] of Dosage 00:00:[address] [facility] MMR 2003-06-04 Completed [facility] of 00:00:[address] [facility] Polio (IPV/OPV) 2003-06-04 Completed [facility] 00:00:[address] [facility] Varicella 2003-06-04 Completed [facility] (varivax)(chicken 00:00:00 [place] [facility] DTAP 2003-06-04 Completed [facility] of 00:00:[address] [facility] HIB 3 Dose Schedule 2003-06-04 Completed [facility] rs[facility] of 00:00:[address] [facility] Hep B, Adol or Pedi 2003-06-04 Completed [facility] rs[facility] of Dosage 00:00:[address] [facility] MMR 2003-06-04 Completed [facility] of 00:00:[address] [facility] Polio (IPV/OPV) 2003-06-04 Completed [facility] 00:00:[address] [facility] Varicella 2003-06-04 Completed [facility] (varivax)(chicken 00:00:00 [place] [facility] DTAP 2003-06-04 Completed [facility] of 00:00:[address] [facility] HIB 3 Dose Schedule 2003-06-04 Completed [facility] of 00:00:[address] [facility] Hep B, Adol or Pedi 2003-06-04 Completed [facility] of Dosage 00:00:[address] [facility] MMR 2003-06-04 Completed [facility] of 00:00:[address] [facility] Polio (IPV/OPV) 2003-06-04 Completed [facility] 00:00:[address] [facility] Varicella 2003-06-04 Completed [facility] (varivax)(chicken 00:00:00 [place] [facility] DTAP 2003-06-04 Completed [facility] of 00:00:[address] [facility] HIB 3 Dose Schedule 2003-06-04 Completed [facility] rs[facility] of 00:00:[address] [facility] Hep B, Adol or Pedi 2003-06-04 Completed [facility] of Dosage 00:00:[address] [facility] MMR 2003-06-04 Completed [facility] of 00:00:[address] [facility] Polio (IPV/OPV) 2003-06-04 Completed [facility] 00:00:[address] [facility] Varicella 2003-06-04 Completed [facility] (varivax)(chicken 00:00:00 [place] [facility] DTAP 2003-06-04 Completed [facility] 00:00:[address] [facility] HIB 3 Dose Schedule 2003-06-04 Completed [facility] 00:00:00 [facility] Hep B, Adol or Pedi 2003-06-04 Completed [facility] rs[facility] of Dosage 00:00:[address] [facility] MMR 2003-06-04 Completed [facility] of 00:00:[address] [facility] Polio (IPV/OPV) 2003-06-04 Completed [facility] 00:00:[address] [facility] Varicella 2003-06-04 Completed [facility] (varivax)(chicken 00:00:00 [place] [facility] DTAP 2003-06-04 Completed [facility] of 00:00:[address] [facility] HIB 3 Dose Schedule 2003-06-04 Completed [facility] rs[facility] of 00:00:[address] [facility] Hep B, Adol or Pedi 2003-06-04 Completed [facility] of Dosage 00:00:[address] [facility] MMR 2003-06-04 Completed [facility] of 00:00:[address] [facility] Polio (IPV/OPV) 2003-06-04 Completed [facility] 00:00:[address] [facility] Varicella 2003-06-04 Completed [facility] (varivax)(chicken 00:00:00 [place] [facility] DTaP, Unspecified 2003-06-04 Completed [facility] ity of Formulation 00:00:[address] [facility] HIB 4 Dose Schedule 2003-06-04 Completed [facility] rsity of 00:00:[address] [facility] IPV 2003-06-04 Completed [facility] 00:00:00 [facility] DTAP 2003-06-04 Completed [facility] of 00:00:[address] [facility] HIB 3 Dose Schedule 2003-06-04 Completed [facility] rs[facility] of 00:00:[address] [facility] Hep B, Adol or Pedi 2003-06-04 Completed [facility] of Dosage 00:00:[address] [facility] MMR 2003-06-04 Completed [facility] of 00:00:[address] [facility] Polio (IPV/OPV) 2003-06-04 Completed [facility] 00:00:[address] [facility] Varicella 2003-06-04 Completed [facility] (varivax)(chicken 00:00:00 [place] [facility] DTaP, Unspecified 2003-06-04 Completed [facility] it[facility] of Formulation 00:00:[address] [facility] HIB 4 Dose Schedule 2003-06-04 Completed [facility] rs[facility] of 00:00:[address] [facility] IPV 2003-06-04 Completed [facility] 00:00:00 [facility] DTAP 2003-06-04 Completed [facility] of 00:00:[address] [facility] HIB 3 Dose Schedule 2003-06-04 Completed [facility] of 00:00:[address] [facility] Hep B, Adol or Pedi 2003-06-04 Completed [facility] of Dosage 00:00:[address] [facility] MMR 2003-06-04 Completed [facility] of 00:00:[address] [facility] Polio (IPV/OPV) 2003-06-04 Completed [facility] 00:00:[address] [facility] Varicella 2003-06-04 Completed [facility] of (varivax)(chicken 00:00:00 [facility] edical pox) Branch DTaP, Unspecified 2003-06-04 Completed [facility] ity of Formulation 00:00:[address] [facility] HIB 4 Dose Schedule 2003-06-04 Completed [facility] rs[facility] of 00:00:[address] [facility] IPV 2003-06-04 Completed [facility] of 00:00:[address] [facility] DTAP 2003-06-04 Completed [facility] of 00:00:[address] [facility] HIB 3 Dose Schedule 2003-06-04 Completed [facility] of 00:00:[address] [facility] Hep B, Adol or Pedi 2003-06-04 Completed [facility] of Dosage 00:00:[address] [facility] MMR 2003-06-04 Completed [facility] of 00:00:[address] [facility] Polio (IPV/OPV) 2003-06-04 Completed [facility] 00:00:[address] [facility] Varicella 2003-06-04 Completed [facility] (varivax)(chicken 00:00:00 [place] [facility] DTaP, Unspecified 2003-06-04 Completed [facility] Formulation 00:00:[address] [facility] HIB 4 Dose Schedule 2003-06-04 Completed [facility] rs[facility] of 00:00:[address] [facility] IPV 2003-06-04 Completed [facility] of 00:00:[address] [facility] DTAP 2003-06-04 Completed [facility] of 00:00:[address] [facility] HIB 3 Dose Schedule 2003-06-04 Completed [facility] of 00:00:[address] [facility] Hep B, Adol or Pedi 2003-06-04 Completed [facility] of Dosage 00:00:[address] [facility] MMR 2003-06-04 Completed [facility] of 00:00:[address] [facility] Polio (IPV/OPV) 2003-06-04 Completed [facility] 00:00:[address] [facility] Varicella 2003-06-04 Completed [facility] (varivax)(chicken 00:00:00 [place] [facility] DTaP, Unspecified 2003-06-04 Completed [facility] Formulation 00:00:[address] [facility] HIB 4 Dose Schedule 2003-06-04 Completed [facility] rs[facility] of 00:00:[address] [facility] IPV 2003-06-04 Completed [facility] of 00:00:[address] [facility] DTAP 2003-06-04 Completed [facility] of 00:00:[address] [facility] HIB 3 Dose Schedule 2003-06-04 Completed [facility] of 00:00:[address] [facility] Hep B, Adol or Pedi 2003-06-04 Completed [facility] of Dosage 00:00:[address] [facility] MMR 2003-06-04 Completed [facility] of 00:00:[address] [facility] Polio (IPV/OPV) 2003-06-04 Completed [facility] 00:00:[address] [facility] Varicella 2003-06-04 Completed [facility] (varivax)(chicken 00:00:00 [place] [facility] DTaP, Unspecified 2003-06-04 Completed [facility] Formulation 00:00:[address] [facility] HIB 4 Dose Schedule 2003-06-04 Completed [facility] rs[facility] of 00:00:[address] [facility] IPV 2003-06-04 Completed [facility] of 00:00:[address] [facility] DTAP 2003-06-04 Completed [facility] of 00:00:[address] [facility] HIB 3 Dose Schedule 2003-06-04 Completed [facility] of 00:00:[address] [facility] Hep B, Adol or Pedi 2003-06-04 Completed [facility] of Dosage 00:00:[address] [facility] MMR 2003-06-04 Completed [facility] of 00:00:[address] [facility] Polio (IPV/OPV) 2003-06-04 Completed [facility] 00:00:[address] [facility] Varicella 2003-06-04 Completed [facility] (varivax)(chicken 00:00:00 [place] [facility] DTaP, Unspecified 2003-06-04 Completed [facility] Formulation 00:00:[address] [facility] HIB 4 Dose Schedule 2003-06-04 Completed [facility] of 00:00:[address] [facility] IPV 2003-06-04 Completed [facility] of 00:00:[address] [facility] DTAP 2003-06-04 Completed [facility] of 00:00:[address] [facility] HIB 3 Dose Schedule 2003-06-04 Completed [facility] of 00:00:[address] [facility] Hep B, Adol or Pedi 2003-06-04 Completed [facility] of Dosage 00:00:[address] [facility] MMR 2003-06-04 Completed [facility] of 00:00:[address] [facility] Polio (IPV/OPV) 2003-06-04 Completed [facility] 00:00:[address] [facility] Varicella 2003-06-04 Completed [facility] of (varivax)(chicken 00:00:00 [facility] ed[facility] pox) Branch DTaP, Unspecified 2003-06-04 Completed [facility] Formulation 00:00:[address] [facility] HIB 4 Dose Schedule 2003-06-04 Completed [facility] rs[facility] of 00:00:[address] [facility] IPV 2003-06-04 Completed [facility] of 00:00:[address] [facility] DTAP 2003-06-04 Completed [facility] of 00:00:[address] [facility] HIB 3 Dose Schedule 2003-06-04 Completed [facility] of 00:00:[address] [facility] Hep B, Adol or Pedi 2003-06-04 Completed [facility] of Dosage 00:00:[address] [facility] MMR 2003-06-04 Completed [facility] of 00:00:[address] [facility] Polio (IPV/OPV) 2003-06-04 Completed [facility] [facility] Varicella 2003-06-04 Completed [facility] of (varivax)(chicken 00:00:00 [place] [facility] pox) [facility] DTaP, Unspecified 2003-06-04 Completed Univers ity of Formulation 00:00:[address] [facility] HIB 4 Dose Schedule 2003-06-04 Completed Unive rsity of 00:00:[address] [facility] IPV 2003-06-04 Completed University of 00:00:00 [facility] DTAP 2003-06-04 Completed University of 00:00:[address] [facility] HIB 3 Dose Schedule 2003-06-04 Completed Unive rsity of 00:00:[address] [facility] Hep B, Adol or Pedi 2003-06-04 Completed Unive rsity of Dosage 00:00:[address] [facility] MMR 2003-06-04 Completed University of 00:00:[address] [facility] Polio (IPV/OPV) 2003-06-04 Completed [facility]it [facility] of 00:00:[address] [facility] Varicella 2003-06-04 Completed [facility] (varivax)(chicken 00:00:00 [place] [facility] pox) [facility] DTaP, Unspecified 2003-06-04 Completed [facility] ity of Formulation 00:00:[address] [facility] HIB 4 Dose Schedule 2003-06-04 Completed Unive rsity of 00:00:[address] [facility] IPV 2003-06-04 Completed University of 00:00:[address] [facility] DTAP 2003-06-04 Completed University of 00:00:[address] [facility] HIB 3 Dose Schedule 2003-06-04 Completed Unive rsity of 00:00:[address] [facility] Hep B, Adol or Pedi 2003-06-04 Completed Unive rsity of Dosage 00:00:[address] [facility] MMR 2003-06-04 Completed University of 00:00:[address] [facility] Polio (IPV/OPV) 2003-06-04 Completed [facility]it [facility] of 00:00:[address] [facility] Varicella 2003-06-04 Completed [facility] (varivax)(chicken 00:00:00 [place] [facility] pox) [facility] DTaP, Unspecified 2003-06-04 Completed [facility] ity of Formulation 00:00:[address] [facility] HIB 4 Dose Schedule 2003-06-04 Completed Unive rsity of 00:00:[address] [facility] IPV 2003-06-04 Completed University of 00:00:[address] [facility] DTAP 2003-06-04 Completed [facility] of 00:00:[address] [facility] HIB 3 Dose Schedule 2003-06-04 Completed [facility]ive rsity of 00:00:00 [facility] Hep B, Adol or Pedi 2003-06-04 Completed Unive rsity of Dosage 00:00:[address] [facility] MMR 2003-06-04 Completed University of 00:00:[address] [facility] Polio (IPV/OPV) 2003-06-04 Completed [facility]it [facility] of 00:00:[address] [facility] Varicella 2003-06-04 Completed [facility] (varivax)(chicken 00:00:00 [place] [facility] pox) [facility] DTaP, Unspecified 2003-06-04 Completed [facility] it[facility] of Formulation 00:00:[address] [facility] HIB 4 Dose Schedule 2003-06-04 Completed Unive rsity of 00:00:[address] [facility] IPV 2003-06-04 Completed [facility] of 00:00:00 [facility] DTAP 2003-06-04 Completed University of 00:00:[address] [facility] HIB 3 Dose Schedule 2003-06-04 Completed Unive rsity of 00:00:[address] [facility] Hep B, Adol or Pedi 2003-06-04 Completed Unive rsity of Dosage 00:00:[address] [facility] MMR 2003-06-04 Completed University of 00:00:[address] [facility] Polio (IPV/OPV) 2003-06-04 Completed Universit y of 00:00:[address] [facility] Varicella 2003-06-04 Completed [facility] of (varivax)(chicken 00:00:00 [facility] edical pox) Branch DTaP, Unspecified 2003-06-04 Completed [facility] ity of Formulation 00:00:[address] [facility] HIB 4 Dose Schedule 2003-06-04 Completed Unive rsity of 00:00:[address] [facility] IPV 2003-06-04 Completed [facility] of 00:00:00 [facility] DTAP 2003-06-04 Completed University of 00:00:[address] [facility] HIB 3 Dose Schedule 2003-06-04 Completed Unive rsity of 00:00:[address] [facility] Hep B, Adol or Pedi 2003-06-04 Completed Unive rsity of Dosage 00:00:[address] [facility] MMR 2003-06-04 Completed University of 00:00:[address] [facility] Polio (IPV/OPV) 2003-06-04 Completed [facility]it [facility] of 00:00:[address] [facility] Varicella 2003-06-04 Completed [facility] of (varivax)(chicken 00:00:00 [facility] edical pox) Branch DTaP, Unspecified 2003-06-04 Completed [facility] ity of Formulation 00:00:[address] [facility] HIB 4 Dose Schedule 2003-06-04 Completed Unive rsity of 00:00:[address] [facility] IPV 2003-06-04 Completed [facility] of 00:00:00 [facility] DTAP 2003-06-04 Completed University of 00:00:[address] [facility] HIB 3 Dose Schedule 2003-06-04 Completed Unive rsity of 00:00:[address] [facility] Hep B, Adol or Pedi 2003-06-04 Completed Unive rsity of Dosage 00:00:[address] [facility] MMR 2003-06-04 Completed University of 00:00:[address] [facility] Polio (IPV/OPV) 2003-06-04 Completed [facility]it [facility] of 00:00:[address] [facility] Varicella 2003-06-04 Completed [facility] (varivax)(chicken 00:00:00 [place] [facility] pox) Branch DTaP, Unspecified 2003-06-04 Completed [facility] it[facility] of Formulation 00:00:[address] [facility] HIB 4 Dose Schedule 2003-06-04 Completed Unive rsity of 00:00:[address] [facility] IPV 2003-06-04 Completed University of 00:00:[address] [facility] DTAP 2003-06-04 Completed [facility] of 00:00:[address] [facility] HIB 3 Dose Schedule 2003-06-04 Completed Unive rsity of 00:00:[address] [facility] Hep B, Adol or Pedi 2003-06-04 Completed Unive rsity of Dosage 00:00:[address] [facility] MMR 2003-06-04 Completed University of 00:00:[address] [facility] Polio (IPV/OPV) 2003-06-04 Completed [facility]it [facility] of 00:00:[address] [facility] Varicella 2003-06-04 Completed [facility] (varivax)(chicken 00:00:00 [place] [facility] pox) [facility] DTaP, Unspecified 2003-06-04 Completed [facility] it[facility] of Formulation 00:00:[address] [facility] HIB 4 Dose Schedule 2003-06-04 Completed Unive rsity of 00:00:[address] [facility] IPV 2003-06-04 Completed [facility] of 00:00:[address] [facility] DTAP 2003-06-04 Completed [facility] of 00:00:[address] [facility] HIB 3 Dose Schedule 2003-06-04 Completed [facility]ive rsity of 00:00:00 [facility] Hep B, Adol or Pedi 2003-06-04 Completed Unive rsity of Dosage 00:00:[address] [facility] MMR 2003-06-04 Completed [facility] of 00:00:[address] [facility] Polio (IPV/OPV) 2003-06-04 Completed [facility]it [facility] of 00:00:[address] [facility] Varicella 2003-06-04 Completed [facility] of (varivax)(chicken 00:00:00 [facility] edical pox) Branch DTaP, Unspecified 2003-06-04 Completed [facility] ity of Formulation 00:00:[address] [facility] HIB 4 Dose Schedule 2003-06-04 Completed Unive rsity of 00:00:[address] [facility] IPV 2003-06-04 Completed [facility] of 00:00:00 [facility] DTAP 2003-06-04 Completed University of 00:00:[address] [facility] HIB 3 Dose Schedule 2003-06-04 Completed Unive rsity of 00:00:[address] [facility] Hep B, Adol or Pedi 2003-06-04 Completed Unive rsity of Dosage 00:00:[address] [facility] MMR 2003-06-04 Completed University of 00:00:[address] [facility] Polio (IPV/OPV) 2003-06-04 Completed [facility]it [facility] of 00:00:[address] [facility] Varicella 2003-06-04 Completed [facility] of (varivax)(chicken 00:00:00 [facility] edical pox) Branch DTaP, Unspecified 2003-06-04 Completed [facility] ity of Formulation 00:00:[address] [facility] HIB 4 Dose Schedule 2003-06-04 Completed Unive rsity of 00:00:[address] [facility] IPV 2003-06-04 Completed [facility] of 00:00:00 [facility] DTAP 2003-06-04 Completed [facility] of 00:00:[address] [facility] HIB 3 Dose Schedule 2003-06-04 Completed [facility]ive rsity of 00:00:00 [facility] Hep B, Adol or Pedi 2003-06-04 Completed Unive rsity of Dosage 00:00:[address] [facility] MMR 2003-06-04 Completed [facility] of 00:00:[address] [facility] Polio (IPV/OPV) 2003-06-04 Completed [facility]it [facility] of 00:00:[address] [facility] Varicella 2003-06-04 Completed [facility] (varivax)(chicken 00:00:00 [place] [facility] pox) [facility] DTaP, Unspecified 2003-06-04 Completed [facility] it[facility] of Formulation 00:00:[address] [facility] HIB 4 Dose Schedule 2003-06-04 Completed Unive rsity of 00:00:[address] [facility] IPV 2003-06-04 Completed University of 00:00:[address] [facility] DTAP 2003-06-04 Completed [facility] of 00:00:[address] [facility] HIB 3 Dose Schedule 2003-06-04 Completed Unive rsity of 00:00:[address] [facility] Hep B, Adol or Pedi 2003-06-04 Completed Unive rsity of Dosage 00:00:[address] [facility] MMR 2003-06-04 Completed [facility] of 00:00:[address] [facility] Polio (IPV/OPV) 2003-06-04 Completed [facility]it [facility] of 00:00:[address] [facility] Varicella 2003-06-04 Completed [facility] (varivax)(chicken 00:00:00 [place] [facility] pox) Branch DTaP, Unspecified 2003-06-04 Completed [facility] it[facility] of Formulation 00:00:[address] [facility] HIB 4 Dose Schedule 2003-06-04 Completed Unive rsity of 00:00:[address] [facility] IPV 2003-06-04 Completed University of 00:00:[address] [facility] DTAP 2003-06-04 Completed University of 00:00:[address] [facility] HIB 3 Dose Schedule 2003-06-04 Completed Unive rsity of 00:00:[address] [facility] Hep B, Adol or Pedi 2003-06-04 Completed Unive rsity of Dosage 00:00:[address] [facility] MMR 2003-06-04 Completed [facility] of 00:00:[address] [facility] Polio (IPV/OPV) 2003-06-04 Completed [facility]it [facility] of 00:00:[address] [facility] Varicella 2003-06-04 Completed [facility] of (varivax)(chicken 00:00:00 [facility] edical pox) Branch DTaP, Unspecified 2003-06-04 Completed [facility] ity of Formulation 00:00:[address] [facility] HIB 4 Dose Schedule 2003-06-04 Completed Unive rsity of 00:00:[address] [facility] IPV 2003-06-04 Completed [facility] of 00:00:[address] [facility] DTAP 2003-06-04 Completed University of 00:00:[address] [facility] HIB 3 Dose Schedule 2003-06-04 Completed Unive rsity of 00:00:00 [facility] Hep B, Adol or Pedi 2003-06-04 Completed Unive rsity of Dosage 00:00:[address] [facility] MMR 2003-06-04 Completed University of 00:00:[address] [facility] Polio (IPV/OPV) 2003-06-04 Completed [facility]it [facility] of 00:00:[address] [facility] Varicella 2003-06-04 Completed [facility] of (varivax)(chicken 00:00:00 [facility] edical pox) Branch DTaP, Unspecified 2003-06-04 Completed [facility] ity of Formulation 00:00:[address] [facility] HIB 4 Dose Schedule 2003-06-04 Completed Unive rsity of 00:00:[address] [facility] IPV 2003-06-04 Completed University of 00:00:[address] [facility] DTAP 2003-06-04 Completed University of 00:00:[address] [facility] HIB 3 Dose Schedule 2003-06-04 Completed Unive rsity of 00:00:[address] [facility] Hep B, Adol or Pedi 2003-06-04 Completed Unive rsity of Dosage 00:00:[address] [facility] MMR 2003-06-04 Completed [facility] of 00:00:[address] [facility] Polio (IPV/OPV) 2003-06-04 Completed [facility]it [facility] of 00:00:[address] [facility] Varicella 2003-06-04 Completed [facility] (varivax)(chicken 00:00:00 [place] [facility] DTaP, Unspecified 2003-06-04 Completed [facility] it[facility] of Formulation 00:00:[address] [facility] HIB 4 Dose Schedule 2003-06-04 Completed Unive rsity of 00:00:[address] [facility] IPV 2003-06-04 Completed University of 00:00:[address] [facility] DTAP 2003-06-04 Completed University of 00:00:[address] [facility] HIB 3 Dose Schedule 2003-06-04 Completed Unive rsity of 00:00:00 [facility] Hep B, Adol or Pedi 2003-06-04 Completed Unive rsity of Dosage 00:00:[address] [facility] MMR 2003-06-04 Completed University of 00:00:[address] [facility] Polio (IPV/OPV) 2003-06-04 Completed [facility]it [facility] of 00:00:[address] [facility] Varicella 2003-06-04 Completed [facility] (varivax)(chicken 00:00:00 [place] [facility] pox) [facility] DTaP, Unspecified 2003-06-04 Completed [facility] ity of Formulation 00:00:[address] [facility] HIB 4 Dose Schedule 2003-06-04 Completed Unive rsity of 00:00:[address] [facility] IPV 2003-06-04 Completed University of 00:00:[address] [facility] DTAP 2003-06-04 Completed University of 00:00:[address] [facility] HIB 3 Dose Schedule 2003-06-04 Completed Unive rsity of 00:00:[address] [facility] Hep B, Adol or Pedi 2003-06-04 Completed Unive rsity of Dosage 00:00:[address] [facility] MMR 2003-06-04 Completed University of 00:00:[address] [facility] Polio (IPV/OPV) 2003-06-04 Completed Universit [facility] of 00:00:[address] [facility] Varicella 2003-06-04 Completed [facility] (varivax)(chicken 00:00:00 [place] [facility] pox) Branch DTaP, Unspecified 2003-06-04 Completed [facility] ity of Formulation 00:00:[address] [facility] HIB 4 Dose Schedule 2003-06-04 Completed Unive rsity of 00:00:[address] [facility] IPV 2003-06-04 Completed University of 00:00:[address] [facility] DTAP 2003-06-04 Completed University of 00:00:[address] [facility] HIB 3 Dose Schedule 2003-06-04 Completed Unive rsity of 00:00:[address] [facility] Hep B, Adol or Pedi 2003-06-04 Completed Unive rsity of Dosage 00:00:[address] [facility] MMR 2003-06-04 Completed [facility] of 00:00:[address] [facility] Polio (IPV/OPV) 2003-06-04 Completed [facility]it [facility] of 00:00:[address] [facility] Varicella 2003-06-04 Completed [facility] (varivax)(chicken 00:00:00 [place] [facility] pox) Branch DTaP, Unspecified 2003-06-04 Completed Univers ity of Formulation 00:00:[address] [facility] HIB 4 Dose Schedule 2003-06-04 Completed Unive rsity of 00:00:[address] [facility] IPV 2003-06-04 Completed University of 00:00:[address] [facility] DTAP Unknown Completed [facility] DTAP Unknown Completed [facility] DTAP Unknown Completed [facility] DTAP Unknown Completed [facility] HIB 3 Dose Schedule Unknown Completed Unive rsity [facility] HIB 3 Dose Schedule Unknown Completed Unive rsity [facility] Hepatitis A Adult Unknown Completed Univers ity [facility] Hepatitis A Adult Unknown Completed Univers ity [facility] Hep B, Adol or Pedi Unknown Completed Unive rsity of Dosage [facility] Hep B, Adol or Pedi Unknown Completed Unive rsity of Dosage [facility] Hep B, Adol or Pedi Unknown Completed Unive rsity of Dosage [facility] Meningococcal Unknown Completed [facility] Vaccine [facility] MMR Unknown Completed [facility] MMR Unknown Completed [facility] Pneumococcal 13 Unknown Completed Universit y of Conjugate, PCV13 [facility] dical (Prevnar 13) Branch Polio (IPV/OPV) Unknown Completed Universit y [facility] Polio (IPV/OPV) Unknown Completed Universit y [facility] Polio (IPV/OPV) Unknown Completed Universit y [facility] Polio (IPV/OPV) Unknown Completed Universit y [facility] TDAP Unknown Completed [facility] Varicella Unknown Completed [facility] (varivax)(chicken [place] [facility] pox) [facility] Varicella Unknown Completed University (varivax)(chicken [place] [facility] pox) Branch Meningococcal B, OMV Unknown Completed Univ ersity [facility] Influenza Virus Unknown Completed Universit y of Vaccine Quad .5 mL [facility] IM 6+ MO Branch (FLUZONE/FLULAVAL/FL UARIX) TDAP Unknown Completed [facility] DTaP, Unspecified Unknown Completed [facility] ity of Formulation [facility] DTaP, Unspecified Unknown Completed [facility] ity of Formulation [facility] DTaP, Unspecified Unknown Completed [facility] it[facility] of Formulation [facility] DTaP, Unspecified Unknown Completed Univers ity of [facility] HEPA,NOS Unknown Completed [facility] HEPATITIS A Unknown Completed [facility] HIB 4 Dose Schedule Unknown Completed Unive rsity [facility] HIB 4 Dose Schedule Unknown Completed Unive rsity [facility] Meningococcal Unknown Completed [facility] Polysaccharide [place] [facility] (groups A, C, Y and Branc h W-135) conjugate vaccine (MCV4P) Pneumococcal 7 Unknown Completed University of Conjugate, PCV7 [facility] ical (Prevnar7) Branch IPV Unknown Completed [facility] IPV Unknown Completed [facility] IPV Unknown Completed [facility] IPV Unknown Completed [facility] TDAP Unknown Completed [facility] DTAP Unknown Completed [facility] DTAP Unknown Completed [facility] DTAP Unknown Completed [facility] DTAP Unknown Completed [facility] HIB 3 Dose Schedule Unknown Completed Unive rsity [facility] HIB 3 Dose Schedule Unknown Completed Unive rsity [facility] Hepatitis A Adult Unknown Completed Univers ity [facility] Hepatitis A Adult Unknown Completed Univers ity [facility] Hep B, Adol or Pedi Unknown Completed Unive rsity of Dosage [facility] Hep B, Adol or Pedi Unknown Completed Unive rsity of Dosage [facility] Hep B, Adol or Pedi Unknown Completed Unive rsity of Dosage [facility] Meningococcal Unknown Completed University Vaccine [facility] MMR Unknown Completed [facility] MMR Unknown Completed [facility] Pneumococcal 13 Unknown Completed Universit y of Conjugate, PCV13 [facility] dical (Prevnar 13) Branch Polio (IPV/OPV) Unknown Completed Universit y [facility] Polio (IPV/OPV) Unknown Completed Universit y of [facility] Polio (IPV/OPV) Unknown Completed [facility]it [facility] of [facility] Polio (IPV/OPV) Unknown Completed Universit [facility] of [facility] TDAP Unknown Completed [facility] Varicella Unknown Completed [facility] (varivax)(chicken [place] [facility] pox) [facility] Varicella Unknown Completed [facility] (varivax)(chicken [place] [facility] pox) Branch Meningococcal B, OMV Unknown Completed Univ ersity [facility] Influenza Virus Unknown Completed Universit y of Vaccine Quad .5 mL [facility] 6+ MO Branch (FLUZONE/FLULAVAL/FL UARIX) TDAP Unknown Completed [facility] DTaP, Unspecified Unknown Completed Univers ity of Formulation [facility] DTaP, Unspecified Unknown Completed [facility] ity of Formulation [facility] DTaP, Unspecified Unknown Completed [facility] it[facility] of Formulation [facility] DTaP, Unspecified Unknown Completed [facility] it[facility] of Formulation [facility] HEPA,NOS Unknown Completed [facility] HEPATITIS A Unknown Completed [facility] HIB 4 Dose Schedule Unknown Completed Unive rsity [facility] HIB 4 Dose Schedule Unknown Completed Unive rsity [facility] Meningococcal Unknown Completed [facility] lottie (groups A, C, Y and Branc h W-135) conjugate vaccine (MCV4P) Pneumococcal 7 Unknown Completed [facility] Conjugate, PCV7 [facility] ical (Prevnar7) Branch IPV Unknown Completed [facility] IPV Unknown Completed [facility] IPV Unknown Completed [facility] IPV Unknown Completed [facility] TDAP Unknown Completed [facility] DTAP Unknown Completed [facility] DTAP Unknown Completed [facility] DTAP Unknown Completed [facility] DTAP Unknown Completed [facility] HIB 3 Dose Schedule Unknown Completed Unive rsity [facility] HIB 3 Dose Schedule Unknown Completed Unive rsity [facility] Hepatitis A Adult Unknown Completed Univers ity [facility] Hepatitis A Adult Unknown Completed Univers ity [facility] Hep B, Adol or Pedi Unknown Completed Unive rsity of Dosage [facility] Hep B, Adol or Pedi Unknown Completed Unive rsity of Dosage [facility] Hep B, Adol or Pedi Unknown Completed Unive rsity of Dosage [facility] Meningococcal Unknown Completed University Vaccine [facility] MMR Unknown Completed [facility] MMR Unknown Completed [facility] Pneumococcal 13 Unknown Completed Universit y of Conjugate, PCV13 [facility] dical (Prevnar 13) Branch Polio (IPV/OPV) Unknown Completed Universit y [facility] Polio (IPV/OPV) Unknown Completed Universit y [facility] Polio (IPV/OPV) Unknown Completed Universit y [facility] Polio (IPV/OPV) Unknown Completed Universit y [facility] TDAP Unknown Completed [facility] Varicella Unknown Completed [facility] (varivax)(chicken [place] [facility] pox) [facility] Varicella Unknown Completed University (varivax)(chicken [place] [facility] pox) Branch Meningococcal B, OMV Unknown Completed Univ ersity [facility] Influenza Virus Unknown Completed Universit y of Vaccine Quad .5 mL [facility] 6+ MO Branch (FLUZONE/FLULAVAL/FL UARIX) TDAP Unknown Completed [facility] DTaP, Unspecified Unknown Completed Univers ity of Formulation [facility] DTaP, Unspecified Unknown Completed Univers ity of Formulation [facility] DTaP, Unspecified Unknown Completed [facility] it[facility] of Formulation [facility] DTaP, Unspecified Unknown Completed Univers it[facility] of Formulation [facility] HEPA,NOS Unknown Completed [facility] HEPATITIS A Unknown Completed [facility] HIB 4 Dose Schedule Unknown Completed Unive rsity [facility] HIB 4 Dose Schedule [facility] [facility] (groups A, C, Y and Branc h W-135) conjugate vaccine (MCV4P) Pneumococcal 7 Unknown Completed [facility] Conjugate, PCV7 [facility] ical (Prevnar7) Branch IPV Unknown Completed [facility] IPV Unknown Completed [facility] IPV Unknown Completed [facility] IPV Unknown Completed [facility] DTAP Unknown Completed [facility] DTAP Unknown Completed [facility] DTAP Unknown Completed [facility] DTAP Unknown Completed [facility] HIB 3 Dose Schedule Unknown [facility] Dose Schedule Unknown [facility] Hepatitis A Adult Unknown Completed Univers ity [facility] Hepatitis A Adult Unknown Completed Univers ity [facility] Hep B, Adol or Pedi Unknown Completed Unive rsity of Dosage [facility] Hep B, Adol or Pedi Unknown Completed Unive rsity of Dosage [facility] Hep B, Adol or Pedi Unknown Completed Unive rsity of Dosage [facility] Meningococcal Unknown Completed University of Vaccine [facility] MMR Unknown Completed [facility] MMR Unknown Completed [facility] Pneumococcal 13 Unknown Completed Universit y of Conjugate, PCV13 [facility] dical (Prevnar 13) Branch Polio (IPV/OPV) Unknown Completed Universit y [facility] Polio (IPV/OPV) Unknown Completed Universit y [facility] Polio (IPV/OPV) Unknown Completed Universit y [facility] Polio (IPV/OPV) Unknown Completed Universit [facility] TDAP Unknown Completed [facility] Varicella Unknown Completed University of (varivax[place] [place] [facility] pox) Branch Varicella Unknown Completed [facility] of (varivax)([facility] [place] [facility] pox) [facility] Meningococcal B, OMV Unknown Completed Univ [facility] Influenza Virus Unknown Completed Universit y of Vaccine Quad .5 mL [facility] IM 6+ MO Branch (FLUZONE/FLULAVAL/FL UARIX) TDAP Unknown Completed [facility] DTaP, Unspecified Unknown Completed Univers ity of Formulation [facility] DTaP, Unspecified Unknown Completed Univers ity of Formulation [facility] DTaP, Unspecified Unknown Completed Univers ity of Formulation [facility] DTaP, Unspecified Unknown Completed Univers ity of Formulation [facility] HEPA,NOS Unknown Completed [facility] HEPATITIS A Unknown Completed [facility] HIB 4 Dose Schedule Unknown Completed Unive [facility] HIB 4 Dose Schedule Unknown [facility] Meningococcal Unknown Completed [facility] (groups A, C, Y and Branc h W-135) conjugate vaccine (MCV4P) Pneumococcal 7 Unknown Completed [facility] Conjugate, PCV7 [facility] ica (Prevnar7) Branch IPV Unknown Completed [facility] IPV Unknown Completed [facility] IPV Unknown Completed [facility] IPV Unknown Completed [facility] Vital Signs Vital Name Observation Time Observation Value Comments Source Systolic blood 2022-08-12 15:38:00 123 mm[Hg] [facility] Diastolic blood 2022-08-12 15:38:00 81 mm[Hg] [facility] Heart rate 2022-08-12 15:38:00 92 /min [facility] Body temperature 2022-08-12 15:38:00 35.83 Nabila [facility] Respiratory rate 2022-08-12 15:38:00 18 /min [facility] Body height 2022-08-12 15:38:00 167.6 cm [facility] Body weight 2022-08-12 15:38:00 80.377 kg [facility] BMI 2022-08-12 15:38:00 28.60 kg/m2 [facility] Systolic blood 2022-08-01 15:20:00 134 mm[facility]Hg[facility] 2022-08-01 15:20:00 90 mm[Hg] Unive rsity of pressure [facility] Heart rate 2022-08-01 14:55:00 91 /min Universi ty [facility] Body temperature 2022-08-01 14:55:00 36.5 Nabila Univ ersity of [facility] Respiratory rate 2022-08-01 14:55:00 17 /min Univ ersity of [facility] Body height 2022-08-01 14:55:00 167.6 cm Universi ty of [facility] Body weight 2022-08-01 14:55:00 81.874 kg Universi ty [facility] BMI 2022-08-01 14:55:00 29.13 kg/m2 Universi ty of [facility] Systolic blood 2022-07-29 16:00:00 131 mm[Hg] Univer sity of pressure [facility] Diastolic blood 2022-07-29 16:00:00 77 mm[Hg] Unive rsity of [facility] Branch Respiratory rate 2022-07-29 15:56:00 18 /min Univ ersity of [facility] Heart rate 2022-07-29 12:15:00 112 /min Universi ty of [facility] Oxygen saturation in 2022-07-29 12:15:00 96 /min University of Arterial blood by [facility] Pulse [facility]xim[facility] [place] Body temperature 2022-07-29 10:00:00 36.[address] [address] [facility] Body height 2022-07-29 03:10:00 167.6 cm Universi ty [facility] Body weight 2022-07-29 03:10:00 83.643 kg Universi ty [facility] BMI 2022-07-29 03:10:00 29.76 kg/m2 Universi ty of [facility] Systolic blood 2022-07-25 13:45:00 140 mm[Hg] Univer sity of pressure [facility] Diastolic blood 2022-07-25 13:45:00 97 mm[Hg] Unive rsity of pressure [facility] Heart rate 2022-07-25 12:15:00 92 /min Universi ty of [facility] Body temperature 2022-07-25 12:15:00 36.67 Nabila Univ ersity of [facility] Branch Respiratory rate 2022-07-25 12:15:00 18 /min Univ ersity of [facility] Oxygen saturation in 2022-07-25 12:15:00 100 /min University of Arterial blood by [facility] Pulse oximetry Branch Body height 2022-07-24 14:30:00 167.6 cm Universi ty [facility] Systolic blood 2022-07-23 18:30:00 130 mm[Hg] Univer sity of pressure [facility] Diastolic blood 2022-07-23 18:30:00 84 mm[Hg] Unive rsity of pressure [facility] Heart rate 2022-07-23 18:30:00 115 /min Universi ty [facility] Body temperature 2022-07-23 18:30:00 36.94 Nabila Univ ersity of [facility] Respiratory rate 2022-07-23 18:30:00 18 /min Univ ersity of [facility] Oxygen saturation in 2022-07-23 18:30:00 99 /min University of Arterial blood by [facility] Pulse oximetry Branch Body height 2022-07-21 15:36:00 167.6 cm Universi ty [facility] Body weight 2022-07-21 15:36:00 89.359 kg Universi ty [facility] BMI 2022-07-21 15:36:00 31.80 kg/m2 [facility] Systolic blood 2022-07-21 18:00:00 131 mm[Hg] Univer sity of pressure [facility] Diastolic blood 2022-07-21 18:00:00 84 mm[Hg] Unive rsity of pressure [facility] Heart rate 2022-07-21 18:00:00 104 /min Universi ty [facility] Body temperature 2022-07-21 18:00:00 36.56 Nabila Univ ersity of [facility] Respiratory rate 2022-07-21 18:00:00 18 /min Univ ersity of [facility] Oxygen saturation in 2022-07-21 18:00:00 100 /min University of Arterial blood by [facility] Pulse oximetry Branch Body height 2022-07-21 15:36:00 167.6 cm Universi ty [facility] Body weight 2022-07-21 15:36:00 89.359 kg Universi ty [facility] BMI 2022-07-21 15:36:00 31.80 kg/m2 [facility] ty [facility] Systolic blood 2022-07-17 17:09:00 103 mm[Hg] Univer sity of pressure [facility] Diastolic blood 2022-07-17 17:09:00 51 mm[Hg] Unive rsity of pressure [facility] Heart rate 2022-07-17 17:09:00 82 /min Universi ty [facility] Body temperature 2022-07-17 17:09:00 36.56 Nabila Univ ersity of [facility] Respiratory rate 2022-07-17 17:09:00 16 /min Univ ersity of [facility] Oxygen saturation in 2022-07-17 17:09:00 99 /min University of Arterial blood by [place] [facility] Body height 2022-07-17 15:58:00 167.6 cm 5' 6" Universi ty of [facility] Body weight 2022-07-17 15:58:00 87.816 kg 193.6lb [facility] ty [facility] BMI 2022-07-17 15:58:00 31.25 kg/m2 [facility] Systolic blood 2022-07-11 06:00:00 121 mm[Hg] Univer sity of pressure [facility] Diastolic blood 2022-07-11 06:00:00 68 mm[Hg] Unive rsity of pressure [facility] Heart rate 2022-07-11 06:00:00 100 /min Universi ty [facility] Oxygen saturation in 2022-07-11 06:00:00 99 /min University of Arterial blood by [place] [facility] P[facility] Body temperature 2022-07-11 04:00:00 36.78 Nabila Univ ersity of [facility] Respiratory rate 2022-07-11 04:00:00 18 /min Univ ersity of [facility] Body height 2022-07-11 04:00:00 167.6 cm [facility]i [facility] Body weight 2022-07-11 04:00:00 89.313 kg [facility] BMI 2022-07-11 04:00:00 31.78 kg/m2 [facility] Systolic blood 2022-07-08 19:21:00 133 mm[Hg] Univer sity of pressure [facility] Diastolic blood 2022-07-08 19:21:00 79 mm[Hg] Unive rsity of pressure [facility] Heart rate 2022-07-08 19:21:00 94 /min Universi ty of [facility] Body temperature 2022-07-08 19:21:00 36.22 Nabila Univ ersity of [facility] Respiratory rate 2022-07-08 19:21:00 18 /min Univ ersity of [facility] Body height 2022-07-08 19:21:00 167.6 cm Universi ty of [facility] Body weight 2022-07-08 19:21:00 86.909 kg Universi ty of [facility] BMI 2022-07-08 19:21:00 30.93 kg/m2 Universi ty of [facility] Heart rate 2022-07-06 09:15:00 96 /min Universi ty of [facility] Oxygen saturation in 2022-07-06 09:15:00 99 /min University of Arterial blood by [facility] Pulse oximetry Branch Systolic blood 2022-07-06 05:20:00 121 mm[Hg] Univer sity of pressure [facility] Diastolic blood 2022-07-06 05:20:00 70 mm[Hg] Unive rsity of pressure [facility] Body temperature 2022-07-06 05:20:00 37.06 Nabila Univ ersity of [facility] Body height 2022-07-06 05:20:00 167.6 cm [facility]i ty [facility] Body weight 2022-07-06 05:20:00 86.637 kg Universi ty [facility] BMI 2022-07-06 05:20:00 30.83 kg/m2 Universi ty of [facility] Respiratory rate 2022-07-06 05:01:00 16 /min Univ ersity of [facility] Systolic blood 2022-06-23 19:46:00 135 mm[Hg] Univer sity of pressure [facility] Diastolic blood 2022-06-23 19:46:00 85 mm[Hg] Unive rsity of pressure [facility] Heart rate 2022-06-23 19:46:00 102 /min Universi ty of [facility] Body temperature 2022-06-23 19:46:00 36.11 Nabila Univ ersity of [facility] Respiratory rate 2022-06-23 19:46:00 18 /min Univ ersity of [facility] Body height 2022-06-23 19:46:00 167.6 cm [facility] ty [facility] Body weight 2022-06-23 19:46:00 85.004 kg [facility] BMI 2022-06-23 19:46:00 30.25 kg/m2 [facility] Systolic blood 2022-06-09 18:04:00 110 mm[Hg] Univer sity of pressure [facility] Diastolic blood 2022-06-09 18:04:00 60 mm[Hg] Unive rsity of pressure [facility] Heart rate 2022-06-09 17:59:00 112 /min Universi ty [facility] Body temperature 2022-06-09 17:57:00 36.28 Nabila Univ ersity of [facility] Respiratory rate 2022-06-09 17:57:00 18 /min Univ ersity of [facility] Body height 2022-06-09 17:57:00 170.2 cm [facility]i ty [facility] Body weight 2022-06-09 17:57:00 85.911 kg [facility] BMI 2022-06-09 17:57:00 29.66 kg/m2 [facility] Body temperature 2022-06-02 15:34:00 36.72 Nabila Univ ersity of [facility] Body weight 2022-06-02 15:34:00 85.73 kg Universi ty [facility] BMI 2022-06-02 15:34:00 30.51 kg/m2 [facility] ty [facility] Systolic blood 2022-05-26 15:34:00 111 mm[Hg] Univer sity of pressure [facility] Diastolic blood 2022-05-26 15:34:00 71 mm[Hg] Unive rsity of pressure [facility] Heart rate 2022-05-26 15:34:00 87 /min Universi ty [facility] Body temperature 2022-05-26 15:34:00 36.33 Nabila Univ ersity of [facility] Respiratory rate 2022-05-26 15:34:00 18 /min Univ ersity of [facility] Body height 2022-05-26 15:34:00 167.6 cm [facility]i ty [facility] Body weight 2022-05-26 15:34:00 85.73 kg [facility] BMI 2022-05-26 15:34:00 30.51 kg/m2 [facility] Body temperature 2022-05-19 15:46:00 36.17 Nabila Univ ersity of [facility] Body weight 2022-05-19 15:46:00 85.095 kg [facility]i ty [facility] BMI 2022-05-19 15:46:00 30.28 kg/m2 [facility] ty [facility] Systolic blood 2022-05-12 20:15:00 122 mm[Hg] Univer sity of pressure [facility] Diastolic blood 2022-05-12 20:15:00 67 mm[Hg] Unive rsity of pressure [facility] Heart rate 2022-05-12 20:15:00 85 /min Universi ty [facility] Body temperature 2022-05-12 20:15:00 35.83 Nabila Univ ersity [facility] Respiratory rate 2022-05-12 20:15:00 18 /min Univ ersity of [facility] Body height 2022-05-12 20:15:00 167.6 cm [facility] Body weight 2022-05-12 20:15:00 83.961 kg [facility] BMI 2022-05-12 20:15:00 29.88 kg/m2 [facility] Body temperature 2022-05-05 16:37:00 36.56 Nabila Univ ers[facility] Body weight 2022-05-05 16:37:00 83.553 kg [facility] Systolic blood 2022-04-28 17:19:00 128 mm[Hg] Univer sity of pressure [facility] Diastolic blood 2022-04-28 17:19:00 73 mm[Hg] Unive rsity of pressure [facility] Heart rate 2022-04-28 17:19:00 87 /min [facility] ty [facility] Body temperature 2022-04-28 17:19:00 37.06 Nabila Univ ers[facility] Respiratory rate 2022-04-28 17:19:00 18 /min Univ ersity of [facility] Body weight 2022-04-28 17:19:00 82.736 kg Universi ty [facility] Body temperature 2022-04-21 16:16:00 36.61 Nabila Univ [facility] Body weight 2022-04-21 16:16:00 81.421 kg [facility] ty [facility] BMI 2022-04-21 16:16:00 28.97 kg/m2 [facility] Systolic blood 2022-04-14 16:55:00 119 mm[Hg] Univer sity of pressure [facility] Diastolic blood 2022-04-14 16:55:00 72 mm[Hg] Unive rsity of pressure [facility] Heart rate 2022-04-14 16:55:00 75 /min [facility]i ty [facility] Body temperature 2022-04-14 16:55:00 36.78 Nabila Univ ers[facility] Respiratory rate 2022-04-14 16:55:00 16 /min Univ ersity of [facility] Body height 2022-04-14 16:55:00 167.6 cm [facility] ty [facility] Body weight 2022-04-14 16:55:00 79.742 kg [facility] BMI 2022-04-14 16:55:00 28.37 kg/m2 [facility] ty [facility] Systolic blood 2022-04-07 19:07:00 122 [...] 2022-03-31 15:59:00 82 /min [facility] ty [facility] Body temperature 2022-03-31 15:59:00 37.11 Nabila Univ [facility] Respiratory rate 2022-03-31 15:59:00 18 /min Univ ersity of [facility] Body height 2022-03-31 15:59:00 167.6 cm [facility] Body weight 2022-03-31 15:59:00 76.885 kg [facility] BMI 2022-03-31 15:59:00 27.36 kg/m2 [facility] Body temperature 2022-03-24 15:55:00 36.61 Nabila Univ [facility] Respiratory rate 2022-03-24 15:55:00 18 /min Univ ersity of [facility] Body weight 2022-03-24 15:55:00 75.796 kg [facility] Systolic blood 2022-03-10 17:15:00 116 mm[Hg] Univer sity of pressure [facility] Diastolic blood 2022-03-10 17:15:00 74 mm[Hg] Unive rsity of pressure [facility] Heart rate 2022-03-10 17:15:00 77 /min [facility] ty [facility] Body temperature 2022-03-10 17:15:00 36.94 Nabila Univ [facility] Respiratory rate 2022-03-10 17:15:00 20 /min Univ ersity of [facility] Body height 2022-03-10 17:15:00 167.6 cm [facility] Body weight 2022-03-10 17:15:00 72.938 kg [facility] BMI 2022-03-10 17:15:00 25.95 kg/m2 [facility] Systolic blood 2022-02-24 16:18:00 109 mm[Hg] Univer sity of pressure [facility] Diastolic blood 2022-02-24 16:18:00 68 mm[Hg] Unive rsity of pressure [facility] Heart rate 2022-02-24 16:18:00 83 /min [facility] Body temperature 2022-02-24 16:18:00 36.44 Nabila Univ [facility] Respiratory rate 2022-02-24 16:18:00 18 /min Univ ersity of [facility] Body height 2022-02-24 16:18:00 167.6 cm [facility] Body weight 2022-02-24 16:18:00 69.673 kg [facility] ty [facility] BMI 2022-02-24 16:18:00 24.79 kg/m2 [facility] Systolic blood 2022-02-10 19:32:00 135 mm[Hg] Univer sity of pressure [facility] Diastolic blood 2022-02-10 19:32:00 90 mm[Hg] Unive rsity of pressure [facility] Heart rate 2022-02-10 19:32:00 130 /min [facility] ty [facility] Body temperature 2022-02-10 19:32:00 36.89 Nabila Univ [facility] Respiratory rate 2022-02-10 19:32:00 20 /min Univ ersity [facility] Body height 2022-02-10 19:32:00 167.6 cm [facility] Body weight 2022-02-10 19:32:00 71.215 kg [facility] BMI 2022-02-10 19:32:00 25.34 kg/m2 [facility] Systolic blood 2022-01-27 15:32:00 127 mm[Hg] Univer sity of pressure [facility] Diastolic blood 2022-01-27 15:32:00 77 mm[Hg] Unive rsity of pressure [facility] Heart rate 2022-01-27 15:32:00 99 /min [facility] Body temperature 2022-01-27 15:32:00 36.22 Nabila [facility] Respiratory rate 2022-01-27 15:32:00 20 /min Univ ersity [facility] Body height 2022-01-27 15:32:00 167.6 cm [facility] Body weight 2022-01-27 15:32:00 70.988 kg [facility] BMI 2022-01-27 15:32:00 25.26 kg/m2 [facility] Systolic blood 2021-12-23 14:24:00 118 mm[Hg] Univer sity of pressure [facility] Diastolic blood 2021-12-23 14:24:00 77 mm[Hg] Unive rsity of pressure [facility] Heart rate 2021-12-23 14:24:00 87 /min [facility] Body temperature 2021-12-23 14:24:00 37 Nabila [facility] Respiratory rate 2021-12-23 14:24:00 18 /min Univ ers[facility] Body height 2021-12-23 14:24:00 167.6 cm [facility] Body weight 2021-12-23 14:24:00 70.761 kg [facility] BMI 2021-12-23 14:24:00 25.18 kg/m2 [facility] Systolic blood 2021-12-09 14:24:00 118 mm[Hg] Univer sity of pressure [facility] Diastolic blood 2021-12-09 14:24:00 79 mm[Hg] Unive rsity of pressure [facility] Heart rate 2021-12-09 14:24:00 88 /min [facility] Body temperature 2021-12-09 14:24:00 36.67 Nabila [facility] Respiratory rate 2021-12-09 14:24:00 16 /min Univ ers[facility] Body height 2021-12-09 14:24:00 167.6 cm [facility] Body weight 2021-12-09 14:24:00 72.53 kg [facility] BMI 2021-12-09 14:24:00 25.81 kg/m2 [facility] Oxygen saturation in 2021-12-09 14:24:00 97 /min University of Arterial blood by [facility] Pulse oximetry Branch Systolic blood 2021-10-12 18:17:00 124 mm[Hg] Univer sity of pressure [facility] Diastolic blood 2021-10-12 18:17:00 90 mm[Hg] Unive rsity of pressure [facility] Heart rate 2021-10-12 18:17:00 112 /min [facility] Body temperature 2021-10-12 18:17:00 37.11 Nabila [facility] 2021-10-12 18:17:00 20 /min [facility] Body height 2021-10-12 18:17:00 167.6 cm [facility] Body weight 2021-10-12 18:17:00 68.04 kg [facility] BMI 2021-10-12 18:17:00 24.21 kg/m2 [facility] Procedures Procedure Date / Time Performing Clinician Source Performed PROTEIN CREAT RATIO 2022-07-29 05:00:00 aKsey Blanco [facility] URINE RANDOM [facility] CBC WITH DIFF 2022-07-25 10:37:00 Kasey Blanco [facility] COMP. METABOLIC PANEL 2022-07-25 03:06:00 Kasey Blanco [facility] ([id number]) [facility] CBC WITH DIFF 2022-07-25 03:06:00 Kasey Blanco [facility] PROTEIN CREAT RATIO 2022-07-25 03:06:00 Kasey Blanco [facility] URINE RANDOM [facility] CBC WITH DIFF 2022-07-22 08:27:00 Adum, Hetal Mario [facility] CBC WITH DIFF 2022-07-22 08:27:00 Adum, Hetal Mario [facility] SECTION 2022-07-21 18:36:00 Adum, Hetal Mario [facility] SECTION 2022-07-21 18:36:00 Adum, Hetal Mario [facility] URINE DRUG (IMMUNOASSAY) 2022-07-21 18:12:00 Adum, Hetal Avendano [facility] SCREEN W/O REFLEX URINE DRUG (IMMUNOASSAY) 2022-07-21 18:12:00 Adum, Hetal Avendano [facility] SCREEN W/O REFLEX CBC WITH DIFF 2022-07-21 16:52:00 Adum, Hetal Mario [facility] HEPATITIS B SURFACE 2022-07-21 16:52:00 Adum, Hetal Mario [facility] ANTIGEN [facility] HB ABO GROUPING 2022-07-21 16:52:00 Adum, Hetal Mario [facility] ADC OR KATALINA ONLY - 2022-07-21 16:52:00 Adum, Hetal Mario [facility] HIV 1/2 AG-AB WITH 2022-07-21 16:52:00 Adum, Hetal Mario [facility] REFLEX [facility] CBC WITH DIFF 2022-07-21 16:52:00 Adum, Hetal Mario [facility] HEPATITIS B SURFACE 2022-07-21 16:52:00 Adum, Hetal Mario [facility] ANTIGEN [facility] HB ABO GROUPING 2022-07-21 16:52:00 Adum, Hetal Mario [facility] ADC OR KATALINA ONLY - 2022-07-21 16:52:00 Adum, Hetal Mario [facility] HIV 1/2 AG-AB WITH 2022-07-21 16:52:00 Adum, Hetal Mario [facility] REFLEX [facility] RHO (D) IMMUNE GLOBULIN 2022-07-21 16:52:00 Tony Blanco [facility] ADC ONLY - FERN TEST 2022-07-21 16:06:00 Adum, Hetal Mario [facility] ADC ONLY - FERN TEST 2022-07-21 16:06:00 Adum, Hetal Mario [facility] CONSENT/REFUSAL FOR 2022-07-21 15:31:39 Doctor Unassigned, No [facility] [place] [facility] CONSENT/REFUSAL FOR 2022-07-21 15:31:39 Doctor Unassigned, No [facility] [place] [facility] Name [facility] URINALYSIS 2022-07-17 16:35:00 Adum, Hetal Mario [facility] ADC ONLY - FERN TEST 2022-07-17 16:35:00 Adum, Hetal Mario [facility] URINALYSIS 2022-07-11 06:30:00 Austin Arzola Ruffin o [facility] ADC CLC OR LCC ONLY - 2022-07-11 06:30:00 Austin Arzoal [facility] NOTICE OF PRIVACY 2022-07-11 03:43:30 Doctor Unassigned, No [facility] PRACTICES [facility] CONSENT/REFUSAL FOR 2022-07-11 03:43:01 Doctor Unassigned, No [facility] DIAGNOSIS AND TREATMENT [facility] ASSIGNMENT OF BENEFITS 2022-07-11 03:42:40 Doctor Unassigned, No [facility] POCT URINALYSIS 2022-07-08 19:23:00 Antonette Solano [facility] L&D VISIT 2022-07-06 05:01:00 Doctor Unassigned, No [facility] (NON-DELIVERED) [facility] ASSIGNMENT OF BENEFITS 2022-07-06 04:55:57 Doctor Unassigned, No [facility] POCT URINALYSIS 2022-06-23 19:48:00 Antonette Solano [facility] POCT URINALYSIS 2022-06-09 18:04:00 Antonette Solano [facility] TDAP VACCINE, >11 YRS, 2022-05-26 15:59:59 Tushar Lan [facility] GLUCOSE 1 HOUR POST 2022-05-12 21:16:00 Tushar Lan [facility] CBC WITH DIFF 2022-05-12 21:16:00 Tushar Lan [facility] POCT URINALYSIS 2022-05-12 20:18:00 Antonette Solano [facility] POCT URINALYSIS 2022-04-28 17:24:00 Antonette Solano [facility] SECOND AND THIRD 2022-04-14 15:44:00 Antonette Solano [facility] TRIMESTER ULTRASOUND [facility] POCT URINALYSIS 2022-03-31 16:02:00 Antonette Solano [facility] POCT URINALYSIS 2022-03-10 00:00:00 Antonette Solano [facility] POCT URINALYSIS 2022-02-24 16:30:00 Antonette Solano [facility] POCT URINALYSIS 2022-02-10 00:00:00 Antonette Solano [facility] POCT URINALYSIS 2022-01-27 15:33:00 Antonette Solano [facility] REPORT OF 2021-12-23 05:01:00 Doctor Unassigned, No [facility] POCT TEST 2021-12-23 00:00:00 Antonette Solano [facility] POCT URINALYSIS W/O 2021-12-23 00:00:00 Antonette Solano [facility] US FIRST 2021-12-14 21:24:[address] [facility] TRIMESTER LESS THAN 14 Medical [facility] WEEKS WITH TRANSVAGINAL ASSIGNMENT OF BENEFITS 2021-12-14 19:54:43 Doctor Unassigned, No [facility] POCT TEST 2021-12-09 00:00:00 Sara Snyder [facility] POCT TEST 2021-10-12 18:22:00 Tushar Lan [facility] Encounters Start End Encounter Admission Attending Care Care Encounter Source Date/Time Date/Time Type Type Clinicians Facility Department ID 2022-07-24 Outpatient P KASEY BLANCO [facility] EL[facility] [id number] Univers 07:39:17 KASEY BLANCO [facility] 2022-07-11 Outpatient X [facility] [id number] Univers 03:19:31 [facility] 2020-12-27 Emergency [facility] [id number] Univers 22:10:58 [facility] 2020-12-27 Emergency [facility] [id number] Univers 22:10:[address] [facility] 2020-12-27 Outpatient P [facility] [id number] Univers 19:19:[address] [facility] 2020-12-27 Outpatient P [facility] [id number] Univers 19:19:[address] [facility] 2022-12-08 2022-12-08 Outpatient R AKINSIPE, [facility] [id number] Univers 14:45:00 14:45:[address] ity o f [facility] 2022-09-07 2022-09-07 Outpatient R AKINSIPE, [facility] [id number] Univers 15:15:00 16:22:[address] o [address] [facility] 2022-08-29 2022-08-29 [facility] 1.2.840.114 10 [id number] Univers 00:00:00 00:00:00 Tushar C COMPOSING ROOM MACHINIST APPRENTICE 350.1.13.10 ity of REGIONAL 4.2.7.2.686 Jamal as MATERNAL [id number] Med ical & CHILD [address] [place] [address] 2022-08-29 2022-08-29 Telephone [facility] 1.2.840.114 10 [id number] Univers 00:00:00 00:00:00 Tushar C COMPOSING ROOM MACHINIST APPRENTICE 350.1.13.10 ity of REGIONAL 4.2.7.2.686 Jamal as MATERNAL [id number] Med ical & CHILD [address] [place] [address] 2022-08-12 2022-08-12 Outpatient R AKINSIPE, [facility] [id number] Univers 10:00:00 11:16:[address] o [address] [facility] 2022-08-12 2022-08-12 Routine Akinpe, [facility] 1.2.635.682 [id number] Univers 10:00:00 11:16:38 Tushar C COMPOSING ROOM MACHINIST APPRENTICE 350.1.13.10 ity of Visit REGIONAL 4.2.7.2.686 Jamal as MATERNAL [id number] [facility] ical & CHILD [address] [place] [address] 2022-08-01 2022-08-01 Nurse Visit, Tk-chp Nurse [facility] 1.2 .840.114 [id number] Univers 09:30:00 10:21:06 Visit Mallymanny Tushar Lund COMPOSING ROOM MACHINIST APPRENTICE 350.1.13. 10 ity of [facility] 4.2.7.2.686 Jamal as MATERNAL [id number] [facility] & [address] 2022-08-01 2022-08-01 Outpatient R RIKY [facility] [id number] Univers 09:30:00 09:30:[address]y o [address] [facility] 2022-08-01 2022-08-01 Patient Riky [facility] 1.2.914.140 [id number] Univers 00:00:00 00:00:00 Secure Msg Tushar C COMPOSING ROOM MACHINIST APPRENTICE 350.1.13.10 ity [facility] 4.2.7.2.686 Jamal as MATERNAL [id number] [facility] & [address] 2022-08-01 2022-08-01 Patient Riky [facility] 1.2.227.442 [id number] Univers 00:00:00 00:00:00 Secure Msg Tushar C COMPOSING ROOM MACHINIST APPRENTICE 350.1.13.10 ity of [facility] 4.2.7.2.686 Jamal as MATERNAL [id number] [address] 2022-07-28 2022-07-29 Outpatient P JR [facility] [id number] Univers 20:06:00 12:45:00 HETAL rizo [facility] 2022-07-28 2022-07-[address] [facility] 1.2 .840.114 [id number] Univers 20:06:00 12:45:00 Encounter Hetal Norris 350.1.13.10 ity [facility] 4.2.7.2.686 [id number] [address] 2022-07-27 2022-07-27 Nurse MOSHE [facility] 1.2.840.114 [id number] Univers 00:00:00 00:00:00 Triage Patt TEDDY 350.1.13.10 it y of [facility] 4.2.7.2.686 Jamal as [id number] [facility] [address] 2022-07-26 2022-07-26 Telephone [facility] 1.2.840.114 10 [id number] Univers 00:00:00 00:00:00 Tushar Lund COMPOSING ROOM MACHINIST APPRENTICE 350.1.13.10 ity [facility] 4.2.7.2.686 Jamal as MATERNAL [id number] [facility] ical & CHILD [address] [place] [address] 2022-07-24 2022-07-25 Outpatient P KASEY BLANCO [facility] G YN [id number] Univers 09:28:00 12:30:00 TONY BLANCOL ity [facility] 2022-07-24 2022-07-25 [facility] 1.2.840.114 1 [id number] Univers 09:28:00 12:30:00 Encounter sKasey 350.1.13.10 ity [facility] 4.2.7.2.686 [facility] [id number] [facility] [address] 2022-07-21 2022-07-23 Inpatient X [facility] ELIAZAR [id number] Univers 10:37:00 13:45:[address] [facility] 2022-07-21 2022-07-23 [facility] 1.2.840.114 [id number] Univers 10:37:00 13:45:00 Encounter Hetal HELLER 350.1.13.10 ity of [place] 4.2.7.2.686 [facility] [id number] [facility] [address] 2022-07-21 2022-07-21 Surgery [facility] 1.2.840.114 [id number] Univers 12:35:00 14:27:00 Hetal HELLER 350.1.13.10 ity of [place] 4.2.7.2.686 [facility] [id number] [facility] [facility] 2022-07-21 2022-07-21 [facility] [id number] Univers 10:45:00 10:45:[address] o [address] [facility] 2022-07-19 2022-07-19 Case Ad, [facility] 1.2.840.114 [id number] Univers 00:00:00 00:00:00 Management Hetal Mario PINA 350.1.13.10 ity of [place].2.7.2.686 [place] [id number] Nm dical [address] 2022-07-17 2022-07-17 Outpatient X AD, [facility] [id number] Univers 10:38:00 12:40:[address] [facility] 2022-07-17 2022-07-17 Emergency [facility] 1.2.184.930 [id number] Univers 10:38:00 12:40:00 Hetal Mario PINA 350.1.13.10 ity [facility] [place].2.7.2.686 [place] [id number] [address] 2022-07-10 2022-07-11 Outpatient X AUSTIN ARZOLA [facility] [id number] Univers 22:46:00 03:10:[address] [facility] 2022-07-10 2022-07-11 Emergency Austin Arzola [facility] 1.2.840.114 [id number] Univers 22:46:00 03:10:00 Felix [facility]RAVI 350.1.13.10 i ty [facility] 4.2.7.2.686 [place] [id number] [address] 2022-07-11 2022-07-11 Telephone [facility] 1.2.840.114 10 [id number] Univers 00:00:00 00:00:00 Tushar Lund COMPOSING ROOM MACHINIST APPRENTICE 350.1.13.10 ity of [facility] 4.2.7.2.686 Jamal as MATERNAL [id number] 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 ical & CHILD [address] [place] [address] 2022-07-06 2022-07-06 Outpatient P ADUM, [facility] [id number] Univers 00:06:00 04:42:[address] [facility] 2022-07-06 2022-07-06 Emergency Adum, [facility] 1.2.471.423 [id number] Univers 00:06:00 04:42:00 Hetal Fabiano [facility]RAVI 350.1.13.10 ity of [place] 4.2.7.2.686 [place] [facility] [id number] [facility] [address] 2022-07-06 2022-07-06 Orders Doctor MESA 1.2.840.114 [id number] Univers 00:00:00 00:00:00 Only Unassigned, TEDDY 350.1.13.10 ity of [facility] 4.2.7.2.686 Jamal as [id number] [facility] [address] 2022-07-05 2022-07-05 Orders Doctor MOSHE 1.2.840.114 [id number] Univers 00:00:00 00:00:00 Only Unassigned, TEDDY 350.1.13.10 ity of [facility] 4.2.7.2.686 Jamal as [id number] [address] 2022-06-23 2022-06-23 Outpatient R AKINSIPE, [facility] [id number] Univers 14:45:00 15:08:[address] o [address] [facility] 2022-06-23 2022-06-23 Routine Akinsipe, [facility] 1.2.252.298 [id number] Univers 14:45:00 15:08:35 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 & CHILD [address] [place] [address] 2022-06-16 2022-06-16 Outpatient R AKINSIPE, [facility] [id number] Univers 13:00:00 13:00:[address] o f [facility] 2022-06-09 2022-06-09 Outpatient R AKINSIPE, [facility] [id number] Univers 12:45:00 13:24:30 TUSHAR ity o [facility] 2022-06-09 2022-06-09 Routine Akinsipe, [facility] 1.2.766.453 [id number] Univers 12:45:00 13:24:30 Tushar C COMPOSING ROOM MACHINIST APPRENTICE 350.1.13.10 ity of Visit REGIONAL 4.2.7.2.686 Jamal as MATERNAL [id number] [facility] & [address] 2022-06-02 2022-06-02 Nurse Visit, Neftali Nurse [facility] 1. .840.114 [id number] Univers 10:30:00 10:42:00 Visit Akinsipe, Tushar C COMPOSING ROOM MACHINIST APPRENTICE 350.1.13. 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 10 ity of [facility] 4.2.7.2.686 Jamal as MATERNAL [id number] [facility] & CHILD [address] [place] [address] 2022-05-19 2022-05-19 Outpatient R AKINSIPE, [facility] [id number] Univers 10:30:00 10:30:[address] o [address] [facility] 2022-05-12 2022-05-12 Outpatient R AKINSIPE, [facility] [id number] Univers 14:45:00 15:46:[address] o [address] [facility] 2022-05-12 2022-05-12 Routine Akinsipe, [facility] 1.2.204.804 [id number] Univers 14:45:00 15:46:52 Tushar C COMPOSING ROOM MACHINIST APPRENTICE 350.1.13.10 ity of Visit REGIONAL 4.2.7.2.686 Jamal as MATERNAL [id number] [facility] & CHILD [address] [place] [address] 2022-05-05 2022-05-05 Nurse Visit, Neftali Nurse [facility] 1.2 .840.114 [id number] Univers 10:30:00 10:45:51 Visit AkinSteven bryantilola C COMPOSING ROOM MACHINIST APPRENTICE 350.1.13. 10 ity of [facility] 4.2.7.2.686 Jamal as MATERNAL [id number] [facility] & CHILD [address] [place] [address] 2022-05-05 2022-05-05 Outpatient R AKINSIPE, [facility] [id number] Univers 10:30:00 10:30:00 TUSHAR ity o [facility] 2022-04-28 2022-04-28 Outpatient R AKINSIPE, [facility] [id number] Univers 11:00:00 11:44:[address] o [address] [facility] 2022-04-28 2022-04-28 Routine Akinsipe, [facility] 1.2.116.591 [id number] Univers 11:00:00 11:44:12 Tushar C COMPOSING ROOM MACHINIST APPRENTICE 350.1.13.10 ity of Visit REGIONAL 4.2.7.2.686 Jamal as MATERNAL [id number] [facility] & CHILD [address] [place] [address] 2022-04-21 2022-04-21 [facility] 1.2 .840.114 [id number] [facility] 10:00:00 10:30:36 Visit Antonette Solano COMPOSING ROOM MACHINIST APPRENTICE 350.1.13.1 0 ity of [facility] 4.2.7.2.686 Jamal as MATERNAL [id number] [facility] & CHILD [address] [place] [address] 2022-04-21 2022-04-21 Outpatient R ENE [facility] [id number] Univers 10:00:00 10:00:00 ANTONETTE [facility] 2022-04-14 2022-04-14 Outpatient R ASYA [facility] [id number] Univers 09:15:00 11:39:36 SHEREEN [facility] 2022-04-14 2022-04-14 Routine Risk, Oyk-Rhlsn-Pr/High [facility] 1. 2.840.114 [id number] Univers 09:15:00 11:39:36 Shereen Travis COMPOSING ROOM MACHINIST APPRENTICE 350.1.13.10 ity of Visit REGIONAL 4.2.7.2.686 Jamal as MATERNAL [id number] [facility] & [address] 2022-04-14 2022-04-14 [facility] 1.2 .840.114 [id number] [facility] 10:30:00 10:45:00 Visit Tushar Lan C COMPOSING ROOM MACHINIST APPRENTICE 350.1.13. 10 ity of [facility] 4.2.7.2.686 Jamal as MATERNAL [id number] [facility] & CHILD [address] [place] [address] 2022-04-14 2022-04-14 Hand I Cutter Ultrasound, Westchelo [facility] 1.2 .840.114 [id number] Univers 09:30:00 10:39:28 Visit Shereen Travis COMPOSING ROOM MACHINIST APPRENTICE 350.1.13.10 ity of [facility] 4.2.7.2.686 Jamal as MATERNAL [id number] Med ical & CHILD 369 [facility] 2022-04-14 2022-04-14 Outpatient R RIKY [facility] [id number] Univers 10:30:00 10:30:[address] [facility] 2022-04-14 2022-04-14 Case Ene [facility] 1.2.840.114 [id number] Univers 00:00:00 00:00:00 Management Antonette Millard COMPOSING ROOM MACHINIST APPRENTICE 350.1.13.10 ity of [facility] 4.2.7.2.686 Jamal as MATERNAL [id number] Med ical & CHILD [address] [place] [address] 2022-04-07 2022-04-07 Nurse Visit, Neftali Nurse [facility] 1.2 .840.114 [id number] Univers 13:00:00 13:13:39 Visit Tushar Lan COMPOSING ROOM MACHINIST APPRENTICE 350.1.13. 10 ity of [facility] 4.2.7.2.686 Jamal as MATERNAL [id number] Med ical & CHILD [address] [place] [address] 2022-04-07 2022-04-07 Outpatient R RIKY [facility] [id number] Univers 13:00:00 13:00:[address] [facility] 2022-04-07 2022-04-07 Telephone Riky [facility] 1.2.840.114 10 [id number] Univers 00:00:00 00:00:00 Tushar Lund COMPOSING ROOM MACHINIST APPRENTICE 350.1.13.10 ity of [facility] 4.2.7.2.686 Jamal as MATERNAL [id number] [facility] ical & CHILD [address] [place] [address] 2022-03-31 2022-03-31 Routine Risk, Bqh-Ccupr-Tg/High [facility] 1. 2.840.114 [id number] Univers 09:45:00 10:58:49 Edwin Cage COMPOSING ROOM MACHINIST APPRENTICE 350.1.13.10 ity of Visit [facility] 4.2.7.2.686 Jamal as MATERNAL [id number] Med ical & CHILD [address] [place], [place] [address] 2022-03-31 2022-03-31 Outpatient R SHANKAR [facility] [id number] Univers 09:45:00 10:58:49 EDWIN [facility] 2022-03-24 2022-03-24 Nurse Visit, Neftali Nurse [facility] 1.2 .840.114 [id number] Univers 10:00:00 10:00:00 Visit Tushar Lan COMPOSING ROOM MACHINIST APPRENTICE 350.1.13. 10 ity of [facility] 4.2.7.2.686 Jamal as MATERNAL [id number] [facility] & [address] 2022-03-24 2022-03-24 Outpatient R RIKY [facility] [id number] Univers 10:00:00 09:55:[address] o [address] [facility] 2022-03-15 2022-03-15 Telephone Riky [facility] 1.2.840.114 [id number] Univers 00:00:00 00:00:00 Tushar Lund COMPOSING ROOM MACHINIST APPRENTICE 350.1.13.10 ity of [facility] 4.2.7.2.686 Jamal as MATERNAL [id number] [address] 2022-03-10 2022-03-10 Outpatient R SHANKAR [facility] [id number] Univers 11:00:00 11:45:31 EDWIN [facility] 2022-03-10 2022-03-10 Routine Risk, Mat-Ifmpm-Pu/High [facility] 1. 2.840.114 [id number] Univers 11:00:00 11:45:31 Edwin Cage COMPOSING ROOM MACHINIST APPRENTICE 350.1.13.10 ity of Visit [facility]ION[facility] 4.2.7.2.686 Jamal as MATERNAL [id number] [address] 2022-03-10 2022-03-10 Outpatient R [facility] [id number] Univers 10:30:00 10:30:00 ity [facility] 2022-03-07 2022-03-07 Telephone Riky [facility] 1.2.840.114 [id number] Univers 00:00:00 00:00:00 Tushar Lund COMPOSING ROOM MACHINIST APPRENTICE 350.1.13.10 ity of REGIONAL 4.2.7.2.686 Jamal as MATERNAL [id number] [facility] ical & CHILD [address] [place] [address] 2022-03-07 2022-03-07 [facility] 1.2.840.114 [id number] Univers 00:00:00 00:00:00 Management Edwin Blas COMPOSING ROOM MACHINIST APPRENTICE 350.1.13.10 ity of REGIONAL 4.2.7.2.686 Jamal as MATERNAL [id number] [facility] & CHILD [address] [place] [address] 2022-02-24 2022-02-24 Outpatient [facility] [id number] Univers 10:00:00 11:04:18 EDWIN [facility] 2022-02-24 2022-02-24 Routine Risk, Aqa-Jndpa-Dg/High [facility] 1. 2.840.114 [id number] Univers 10:00:00 11:04:18 Edwin Cage COMPOSING ROOM MACHINIST APPRENTICE 350.1.13.10 ity of Visit [facility]ION[facility] 4.2.7.2.686 Jamal as MATERNAL [id number] [facility] & CHILD [address] [place] [address] 2022-02-10 2022-02-10 Outpatient Angelica CAGE [facility] [id number] Univers 13:15:00 13:59:26 EDWIN [facility] 2022-02-10 2022-02-10 Routine Risk, Ryl-Fhyfl-Qm/High [facility] 1. 2.840.114 [id number] Univers 13:15:00 13:59:26 Edwin Cage COMPOSING ROOM MACHINIST APPRENTICE 350.1.13.10 ity of Visit REGIONAL 4.2.7.2.686 Jamal as MATERNAL [id number] [facility] & CHILD [address] [place] [address] 2022-01-27 2022-01-27 Outpatient [facility] [id number] Univers 09:00:00 10:00:53 [facility] 2022-01-27 2022-01-27 Routine Risk, Utr-Ylxee-Iz/High [facility] 1. 2.840.114 [id number] Univers 09:00:00 10:00:53 CageEdwin COMPOSING ROOM MACHINIST APPRENTICE 350.1.13.10 ity of Visit [facility] 4.2.7.2.686 Jamal as MATERNAL [id number] [facility] ical & CHILD [address] [place] [address] 2022-01-10 2022-01-10 Case Ene [facility] 1.2.840.114 [id number] Univers 00:00:00 00:00:00 Management Antonette Millard COMPOSING ROOM MACHINIST APPRENTICE [id number] ity of [facility] 4.2.7.2.686 Jamal as MATERNAL [id number] [facility] ical & CHILD [address] [place] [address] 2022-01-06 2022-01-06 Hand [facility].2 .840.114 [id number] Univers 15:15:00 15:45:00 Visit David Cooper COMPOSING ROOM MACHINIST APPRENTICE 350.1.13.10 ity of [facility] 4.2.7.2.686 Jamal as MATERNAL [phone] Med ical & CHILD 369 [facility] 2022-01-06 2022-01-06 Outpatient P BALBIR [facility] [id number] Univers 15:15:00 15:15:00 DAVID [facility] 2021-12-30 2021-12-30 Outpatient R SARA SNYDER [facility] B [id number] Univers 10:00:00 10:00:00 SARA SNYDER [facility] 2021-12-23 2021-12-23 Outpatient R ENE [facility] [id number] Univers 09:15:00 10:41:00 ANTONETTE [facility] 2021-12-23 2021-12-23 Initial Provider, Neftali [facility] 1 .2.840.114 [id number] Univers 09:15:00 10:41:00 Niki Ralph COMPOSING ROOM MACHINIST APPRENTICE 350.1.13.1 0 ity of Visit Antonette Solano [facility] 4.2.7.2.686 [place] MATERNAL [id number] [facility] ical & CHILD 107 [facility] 2021-12-23 2021-12-23 Orders Doctor MOSHE 1.2.840.114 [id number] Univers 00:00:00 00:00:00 Only Unassigned, TEDDY 350.1.13.10 ity of [facility] 4.2.7.2.686 Jamal as [id number] [facility] [address] [place] 2021-12-17 2021-12-17 [facility] 1.2.840.114 [id number] Univers 00:00:00 00:00:00 Management Sara MENDOZA 350.1.13.10 ity of WOMEN'S 4.2.7.2.686 [facility] [id number] [facility] [address] 2021-12-14 2021-12-14 Outpatient R SARA SNYDER [facility] B [id number] Univers 14:55:04 23:59:00 SARA SNYDER [facility] 2021-12-14 2021-12-14 [facility] 1.2.840.114 [id number] Univers 14:55:04 23:59:00 Encounter Sara [facility]RAVI 350.1.13.10 ity of [place] 4.2.7.2.686 [facility] [phone] [facility] [address] 2021-12-14 2021-12-14 Orders Doctor MOSHE 1.2.840.114 [id number] Univers 00:00:00 00:00:00 Only Unassigned, TEDDY 350.1.13.10 ity of [place] [facility] 4.2.7.2.686 Jamal as [id number] [facility] [address] 2021-12-09 2021-12-09 Outpatient R SARA SNYDER [facility] B [id number] Univers 09:00:00 09:43:20 SARA SNYEDR [facility] 2021-12-09 2021-12-09 Initial [facility] 1.2.840.114 [id number] Univers 09:00:00 09:43:20 Sara DONALDSON 350.1.13.10 i ty of Visit WOMEN'S 4.2.7.2.686 [place] [facility] [phone] [address] 2021-10-12 2021-10-12 Office Riky, [facility] 1.2.360.236 [id number] Univers 13:00:00 13:34:47 Visit Tushar C COMPOSING ROOM MACHINIST APPRENTICE 350.1.13.10 ity of [facility] 4.2.7.2.686 Jamal as MATERNAL [phone] [facility] ical & CHILD [address] [place] [address] 2021-10-12 2021-10-12 Outpatient R AKINSIPE, [facility] [id number] Univers 13:00:00 13:34:47 TUSHAR rizo o [facility] 2021-10-12 2021-10-12 [facility] [id number] Univers 13:00:00 13:00:00 TUSHAR rizo o [facility] 2021-10-12 2021-10-12 Outpatient R AKINSIPE, [facility] [id number] Univers 13:00:00 13:00:00 TUSHAR rizo [facility] 2021-10-12 2021-10-12 Orders Doctor MOSHE 1.2.840.114 [id number] Univers 00:00:00 00:00:00 Only Unassigned, TEDDY 350.1.13.10 ity of [place] [facility] 4.2.7.2.686 Jamal as [phone] [address] 2021-09-28 2021-09-28 Outpatient R AKINSIPE, [facility] [id number] Univers 12:45:00 14:31:13 TUSHAR rizo o [facility] 2021-09-28 2021-09-28 Office [facility] 1.2.562.403 [id number] Univers 12:45:00 14:31:13 Visit Tushar C COMPOSING ROOM MACHINIST APPRENTICE 350.1.13.10 ity of [facility] 4.2.7.2.686 Jamal as MATERNAL [id number] [facility] ical & CHILD [address] [place] [address] 2021-08-05 2021-08-05 Outpatient R JAM SAUNDERS [facility] [id number] Univers 16:15:00 16:15:00 ity [facility] 2021-06-18 2021-06-18 Outpatient R TEHRON [facility] [id number] Univers 11:00:00 11:00:00 [place] itspenser [facility] 2021-06-15 2021-06-15 Orders Doctor MOSHE 1.2.840.114 [id number] Univers 00:00:00 00:00:00 Only Unassigned, TEDDY 350.1.13.10 ity of [place] [facility] 4.2.7.2.686 Jamal as [phone] [facility] [address] 2021-06-15 2021-06-15 Patient Doctor MOSHE 1.2.840.114 [id number] Univers 00:00:00 00:00:00 Secure Msg Unassigned, TEDDY 350.1.13.10 ity of [place] [facility] 4.2.7.2.686 Jamal as [phone] [facility] [address] 2021-03-09 2021-03-09 Outpatient R RIKY [facility] [id number] Univers 14:00:00 14:00:00 [address] rizo o [facility] 2021-03-02 2021-03-02 Telephone [facility] 1.2.840.114 [id number] Univers 00:00:00 00:00:00 Tushar Lund COMPOSING ROOM MACHINIST APPRENTICE 350.1.13.10 ity of [facility] 4.2.7.2.686 Jamal as MATERNAL [phone] Med ical & CHILD [address] [place] [address] 2021-02-12 2021-02-12 [facility] 1.2.915.433 [id number] Univers 00:00:00 00:00:00 Ernesto Rosario COMPOSING ROOM MACHINIST APPRENTICE 350.1.13.10 it y of [facility] 4.2.7.2.686 Jamal as MATERNAL [id number] [facility] ical & CHILD [address] [place] [address] 2021-02-11 2021-02-11 Refjarocho LanDR. [facility] 1.2.658.717 [id number] Univers 00:00:00 00:00:00 Tushar C COMPOSING ROOM MACHINIST APPRENTICE 350.1.13.10 ity of [facility] 4.2.7.2.686 Jamal as MATERNAL [phone] [facility] & CHILD [address] [place] [address] 2021-01-27 2021-01-27 [facility] 1.2.624.809 [id number] Univers 00:00:00 00:00:00 Ernesto N COMPOSING ROOM MACHINIST APPRENTICE 350.1.13.10 it y of [facility] 4.2.7.2.686 Jamal as MATERNAL [phone] [facility] & CHILD [address] [place] [address] 2021-01-18 2021-01-18 Outpatient [facility] [id number] Univers 16:00:00 16:18:34 ERNESTO rizo [facility] 2021-01-18 2021-01-18 Office [facility] 1.2.911.899 [id number] Univers 15:59:18 16:18:34 Visit Ernesto Rosario COMPOSING ROOM MACHINIST APPRENTICE 350.1.13.10 it y of [facility] 4..7.2.686 Jamal as MATERNAL [id number] [address] 2021-01-18 2021-01-18 Outpatient [facility] [id number] Univers 16:00:00 16:00:00 ERNESTO rizo [facility] 2021-01-15 2021-01-15 Outpatient [facility] [id number] Univers 13:15:00 13:15:00 ERNESTO rizo [facility] 2020-12-11 2020-12-11 Telephone [facility] 1.2.840.114 [id number] Univers 00:00:00 00:00:00 Tushar C COMPOSING ROOM MACHINIST APPRENTICE 350.1.13.10 ity of [facility] 4..7.2.686 Jamal as MATERNAL [phone] [address] 2020-10-20 2020-10-20 Office [facility] 1.2.840.114 [id number] Univers 13:30:06 14:12:47 Visit Niki Dominguez COMPOSING ROOM MACHINIST APPRENTICE 350.1.13.10 ity of [place]ION[place] 4.2.7.2.686 Jamal as MATERNAL [phone] [facility] & [address] 2020-10-20 2020-10-20 Outpatient R RAMO [facility] [id number] Univers 13:30:00 13:30:[address] o [address] [facility] 2020-10-14 2020-10-14 Outpatient R RIKY [facility] [id number] Univers 15:00:00 15:00:00 TUSHAR riosy o [facility] 2020-10-12 2020-10-12 Office [facility] 1.2.312.219 [id number] Univers 14:17:44 15:03:31 Visit Tushar Lund COMPOSING ROOM MACHINIST APPRENTICE 350.1.13.10 ity of REGIONAL 4.2.7.2.686 Jamal as MATERNAL [phone] [address] 2020-10-12 2020-10-12 Outpatient R RIKY [facility] [id number] Univers 14:30:00 14:30:00 TUSHAR riosy o [facility] 2020-09-28 2020-09-28 Outpatient R RIKY [facility] [id number] Univers 08:30:00 08:30:[address] o [address] [facility] 2020-09-28 2020-09-28 Telephone [facility] 1.2.840.114 [id number] Univers 00:00:00 00:00:00 Ernesto Rosario COMPOSING ROOM MACHINIST APPRENTICE 350.1.13.10 it y of REGIONAL 4.2.7.2.686 Jamal as MATERNAL [phone] [address] 2020-09-25 2020-09-25 Telephone [facility] 1.2.840.114 [id number] Univers 00:00:00 00:00:00 Tushar Lund COMPOSING ROOM MACHINIST APPRENTICE 350.1.13.10 ity of REGIONAL 4.2.7.2.686 Jamal as MATERNAL [phone] [facility] & CHILD [address] [place] [address] 2020-09-24 2020-09-24 Office [facility] 1.2.304.814 [id number] Univers 14:14:05 14:29:05 Visit Tushar Lund COMPOSING ROOM MACHINIST APPRENTICE 350.1.13.10 ity of REGIONAL 4.2.7.2.686 Jamal as MATERNAL [id number] [facility] & [address] 2020-09-24 2020-09-24 Outpatient R RIKY [facility] [id number] Univers 14:15:00 14:15:[address] [facility] 2020-09-08 2020-09-08 Outpatient Angelica PEACOCK [facility] [id number] Univers 16:00:00 [facility]:00[facility] 2020-08-18 2020-08-18 Routine [facility] 1.2.024.305 [id number] Univers 13:04:51 13:45:53 Tushar Lund COMPOSING ROOM MACHINIST APPRENTICE 350.1.13.10 ity of Visit REGIONAL 4.2.7.2.686 Jamal as MATERNAL [id number] [address] 2020-08-18 2020-08-18 Outpatient R RIKY [facility] [id number] Univers 13:15:00 13:15:00 TUSHAR katz [facility] 2020-08-06 2020-08-06 Outpatient Angelica PEACOCK [facility] [id number] Univers 11:00:00 11:00:00 ERNESTO [facility] 2020-08-06 2020-08-06 Nurse Visit, Ang-Rmchp Nurse [facility] 1.2 .840.114 [id number] Univers 08:21:04 09:08:19 Visit Tushar Lan COMPOSING ROOM MACHINIST APPRENTICE 350.1.13. 10 ity of REGIONAL 4.2.7.2.686 Jamal as MATERNAL [phone] [facility] & [address] 2020-08-06 2020-08-06 Outpatient R RIKY [facility] [id number] Univers 09:00:00 09:00:00 TUSHAR rizo o [facility] 2020-08-04 2020-08-04 Telephone [facility]DR[facility] 1.2.840.114 [id number] Univers 00:00:00 00:00:00 Ernesto Rosario COMPOSING ROOM MACHINIST APPRENTICE 350.1.13.10 it y of [facility] 4.2.7.2.686 Jamal as MATERNAL [phone] Med ical & CHILD 107 [facility] 2020-08-01 2020-08-01 1.2.840.1 1.2.840.114 [id number] Univers 00:00:00 00:00:00 Encounter [id number] 350.1.13.10 ity of 3.104.2.7 [place].2.696 [place] .[id number] [facility] 2020-07-26 2020-07-28 [facility] Rosio Breen [facility] 1.2.840.11 [id number] Univers 14:30:00 17:45:00 Encounter Austin Arzola 350.1.13.10 ity of [place] 4.2.7.2.686 [facility] [phone] [address] 2020-07-27 2020-07-27 Anesthesia [facility]DR[facility] 1.2.840.114 [id number] Univers 10:49:00 16:19:00 Event Dylan Heller 350.1.13.10 ity of [place] 4.2.7.2.686 [facility] [phone] [address] 2020-07-26 2020-07-26 Anesthesia MariaDR[facility] 1.2.840.114 [id number] Univers 19:50:09 19:50:09 Event Angelica Heller 350.1.13.10 i ty of [place] 4.2.7.2.686 [facility] [id number] [address] 2020-07-21 2020-07-21 Routine Mad[facility]DR[facility] 1.2.698.927 [id number] Univers 12:46:13 13:17:55 Ernesto Rosario COMPOSING ROOM MACHINIST APPRENTICE 350.1.13.10 i ty of [facility] 4.2.7.2.686 Jamal as MATERNAL [id number] [facility] & CHILD [address] [place] [address] 2020-07-21 2020-07-21 Outpatient R MADONNA [facility] [id number] Univers 12:45:00 12:45:00 ERNESTOSHARMILA rizo [facility] 2020-07-12 2020-07-12 Hospital [facility] 1.2.840.114 [id number] Univers 02:00:00 03:20:00 Encounter Hetal Heller 350.1.13.10 ity [facility] 4.2.7.2.686 [place] [facility] [id number] [address] 2020-07-07 2020-07-07 Routine Mad[facility]DR[facility] 1.2.341.465 [id number] Univers 10:39:36 11:15:55 Ernesto Rosario COMPOSING ROOM MACHINIST APPRENTICE 350.1.13.10 i ty of Visit [facility] 4.2.7.2.686 Jamal as MATERNAL [id number] [facility] & CHILD [address] [place] [address] 2020-07-07 2020-07-07 Outpatient R MADONNA [facility] [id number] Univers 10:45:00 10:45:00 ERNESTOSHARMILA rizo [facility] 2020-06-26 2020-06-26 Telephone [facility] 1.2.840.114 [id number] Univers 00:00:00 00:00:00 Tushar Lund COMPOSING ROOM MACHINIST APPRENTICE 350.1.13.10 ity of [facility] 4.2.7.2.686 Jamal as MATERNAL [phone] [facility] & CHILD [address] [place] [address] 2020-06-26 2020-06-26 Patient Madonna VTSOLE 1.2.347.981 [id number] Univers 00:00:00 00:00:00 Secure Msg Ernesto Rosario COMPOSING ROOM MACHINIST APPRENTICE 350.1.13.10 ity of [facility] 4.2.7.2.686 Jamal as MATERNAL [id number] [facility] & CHILD [address] [place] [address] 2020-06-23 2020-06-23 Routine [facility] 1.2.865.600 [id number] Univers 14:10:30 14:38:56 Ernesto Rosario COMPOSING ROOM MACHINIST APPRENTICE 350.1.13.10 i ty of Visit REGIONAL 4.2.7.2.686 Jamal as MATERNAL [phone] [facility] & CHILD [address] [place] [address] 2020-06-23 2020-06-23 Outpatient R MADONNA [facility] [id number] Univers 14:15:00 14:15:00 ERNESTOSHARMILA rizo [facility] 2020-06-11 2020-06-11 Orders Doctor MOSHE 1.2.840.114 [id number] Univers 00:00:00 00:00:00 Only Unassigned, TEDDY 350.1.13.10 ity of [place] [facility] 4.2.7.2.686 Jamal as [phone] [address] 2020-06-09 2020-06-09 Routine Niki Ralph [facility] 1.2.840 .114 [id number] Univers 14:16:51 14:55:17 Ernesto Peacock COMPOSING ROOM MACHINIST APPRENTICE 350.1.13.10 ity of Visit REGIONAL 4.2.7.2.686 Jamal as MATERNAL [phone] [facility] & CHILD [address] [place] [address] 2020-06-09 2020-06-09 Outpatient R MADONNA [facility] [id number] Univers 14:15:00 14:15:00 ERNESTOSHARMILA rizo [facility] 2020-06-02 2020-06-02 Orders Doctor MESA 1.2.840.114 [id number] Univers 00:00:00 00:00:00 Only Unassigned, TEDDY 350.1.13.10 ity of [place] [facility] 4.2.7.2.686 Jamal as [id number] [address] 2020-06-01 2020-06-01 Arcadio Lan [facility] 1.2.927.884 [id number] Univers 00:00:00 00:00:00 Tushar Lund COMPOSING ROOM MACHINIST APPRENTICE 350.1.13.10 ity of REGIONAL 4.2.7.2.686 Jamal as MATERNAL [phone] [facility] & CHILD [address] [place] [address] 2020-05-21 2020-05-21 Hand I Cutter Lab, [facility] 1.2.840. 114 [id number] Univers 12:58:26 13:13:26 Visit Tushar Lan COMPOSING ROOM MACHINIST APPRENTICE 350.1.13. 10 ity of REGIONAL 4.2.7.2.686 Jamal as MATERNAL [phone] [address] 2020-05-21 2020-05-21 Outpatient R RIKY [facility] [id number] Univers 13:00:00 13:00:[address]zo o f [facility] 2020-05-19 2020-05-19 Routine [facility] 1.2.360.038 [id number] Univers 12:45:26 13:11:32 Ernesto N COMPOSING ROOM MACHINIST APPRENTICE 350.1.13.10 i ty of Visit [facility] 4.2.7.2.686 Jamal as MATERNAL [id number] [address] 2020-05-19 2020-05-19 Outpatient Angelica PEACOCK [facility] [id number] Univers 12:45:00 12:45:[facility] 2020-05-19 2020-05-19 Patient Tim [facility] 1.2.840.114 [id number] Univers 00:00:00 00:00:00 Outreach Jeffery MACDONALD 350.1.13.10 i ty of [facility] 4.2.7.2.686 [place] [phone] [address] 2020-04-23 2020-04-23 Routine [facility] 1.2.763.191 [id number] Univers 15:54:18 16:11:16 Ernesto N COMPOSING ROOM MACHINIST APPRENTICE 350.1.13.10 i ty of Visit [facility] 4.2.7.2.686 Jamal as MATERNAL [id number] [address] 2020-04-23 2020-04-23 Outpatient Angelica PEACOCK [facility] [id number] Univers 16:00:00 16:00:00 ERNESTO [facility] 2020-04-14 2020-04-14 Outpatient [facility] [id number] Univers 12:45:00 12:45:00 ERNESTO rizo [facility] 2020-04-09 2020-04-09 Hand I Cutter Ultrasound, Leonardo [facility] 1.2 .840.114 [id number] Univers 13:55:54 14:54:41 Visit Ron Charltonta COMPOSING ROOM MACHINIST APPRENTICE 350.1.13.10 ity of [facility] 4.2.7.2.686 Jamal as MATERNAL [phone] [facility] ical & CHILD 369 [facility] 2020-04-09 2020-04-09 Outpatient P [facility] [id number] Univers 14:00:00 14:00:00 ity [facility] 2020-04-07 2020-04-07 Telephone [facility] 1.2.840.114 [id number] Univers 00:00:00 00:00:00 Ernesto Rosario COMPOSING ROOM MACHINIST APPRENTICE 350.1.13.10 it y of [facility] 4.2.7.2.686 Jamal as MATERNAL [id number] [facility] & CHILD [address] [place] [address] 2020-03-26 2020-03-26 Orders Doctor MOSHE 1.2.840.114 [id number] Univers 00:00:00 00:00:00 Only Unassigned, TEDDY 350.1.13.10 ity of [place] [facility] 4.2.7.2.686 Jamal as [id number] [address] 2020-03-17 2020-03-17 Routine Madonna VTSOLE 1.2.892.688 [id number] Univers 12:49:30 13:34:04 Ernesto Rosario COMPOSING ROOM MACHINIST APPRENTICE 350.1.13.10 i ty of Visit [facility] 4.2.7.2.686 Jamal as MATERNAL [id number] [facility] & CHILD [address] [place] [address] 2020-03-17 2020-03-17 Outpatient R MADONNA [facility] [id number] Univers 13:00:00 13:00:00 ERNESTO darrius [facility] 2020-02-25 2020-02-25 Telephone Madonna [facility] 1.2.840.114 [id number] Univers 00:00:00 00:00:00 Ernesto Rosario COMPOSING ROOM MACHINIST APPRENTICE 350.1.13.10 it y of [place] [address].7.2.686 Jamal as MATERNAL [phone] Med ical & CHILD 107 [facility] 2020-02-18 2020-02-18 Outpatient R MADONNA [facility] [id number] Univers 14:45:00 14:45:00 ERNESTOSHARMILA rizo [facility] 2020-02-18 2020-02-18 [address] [facility] 1.2.564.598 [id number] Univers 14:09:04 14:39:35 Ernesto N COMPOSING ROOM MACHINIST APPRENTICE 350.1.13.10 i ty of Visit [address] Jamal as MATERNAL [phone] Med ical & CHILD [address] [place] [address] 2020-02-03 2020-02-03 Tele[address] [facility] 1.2.840.114 [id number] Univers 00:00:00 00:00:00 Tushar Lund COMPOSING ROOM MACHINIST APPRENTICE 350.1.13.10 ity of [place] [address]..2.686 Jamal as MATERNAL [id number] Med ical & CHILD [address] [place] [address] 2020-02-03 2020-02-03 Refill Doctor [facility] 1.2.840.114 [id number] Univers 00:00:00 00:00:00 Unassigned, COMPOSING ROOM MACHINIST APPRENTICE 350.1.13.10 ity of [place] [address].7.2.686 Jamal as MATERNAL [phone] Med ical & CHILD [address] [place] [address] 2020-01-21 2020-01-21 Routine [facility] 1.2.156.827 [id number] Univers 15:20:02 16:02:58 Ernesto N COMPOSING ROOM MACHINIST APPRENTICE 350.1.13.10 i ty of Visit [place] [address].2.686 Jamal as MATERNAL [phone] Med ical & CHILD [address] [place] [address] 2020-01-21 2020-01-21 Outpatient R MADONNA [facility] [id number] Univers 15:30:00 15:30:00 ERNESTO blancaspenser [facility] 2020-01-18 2020-01-18 Refill Doctor [facility] 1.2.840.114 [id number] Univers 00:00:00 00:00:00 Unassigned, COMPOSING ROOM MACHINIST APPRENTICE 350.1.13.10 ity of [place] REGIONAL 4.2.7.2.686 Jamal as MATERNAL [phone] Med ical & CHILD 107 [facility] 2020-01-09 2020-01-09 Hand I Cutter Ultrasound, Leonardo [facility] 1.2 .840.114 [id number] Univers 14:52:31 15:17:04 Visit Shereen Travis COMPOSING ROOM MACHINIST APPRENTICE 350.1.13.10 ity of REGIONAL 4.2.7.2.686 Jamal as MATERNAL [phone] Med ical & CHILD 369 [facility] 2020-01-09 2020-01-09 Outpatient P [facility] [id number] Univers 14:45:00 14:45:00 ity [facility] 2020-01-09 2020-01-09 Abstract [facility] 1.2.840.114 [id number] Univers 00:00:00 00:00:00 Ernesto Rosario COMPOSING ROOM MACHINIST APPRENTICE 350.1.13.10 it y of REGIONAL 4.2.7.2.686 Jamal as MATERNAL [phone] Med ical & CHILD [address] [place] [address] 2019-12-27 2019-12-27 Telephone Riky [facility] 1.2.840.114 [id number] Univers 00:00:00 00:00:00 Tushar Lund COMPOSING ROOM MACHINIST APPRENTICE 350.1.13.10 ity of [facility] 4.2.7.2.686 Jamal as MATERNAL [phone] Med ical & CHILD [address] [place] [address] 2019-12-26 2019-12-26 Initial [facility] 1.2.147.294 [id number] Univers 13:39:00 15:06:17 Ernesto Rosario COMPOSING ROOM MACHINIST APPRENTICE 350.1.13.10 i ty of Visit REGIONAL 4.2.7.2.686 Jamal as MATERNAL [phone] Med ical & CHILD [address] [place] [address] 2019-12-26 2019-12-26 [facility] [id number] Univers 13:45:00 13:45:00 ERNESTO rizo [facility] 2019-12-26 2019-12-26 Orders Doctor [facility] 1.2.840.114 [id number] Univers 00:00:00 00:00:00 Only Unassigned, TEDDY 350.1.13.10 ity of [place] [facility] 4.2.7.2.686 Jamal as [id number] [address] 2019-12-09 2019-12-09 Outpatient R RIKY [facility] [id number] [facility] 13:15:00 13:15:[address]zo o f [facility] 2019-10-28 2019-10-28 Telephone [facility] 1.2.840.114 [id number] 00:00:00 00:00:00 Tushar C COMPOSING ROOM MACHINIST APPRENTICE 350.1.13.10 REGIONAL [id number] MATERNAL [phone] & CHILD [address] [place] [address] 2019-10-28 2019-10-28 [facility] [id number] [facility] 00:00:00 00:00:00 Tushar C COMPOSING ROOM MACHINIST APPRENTICE [id number] ity of [facility] [id number] Jamal as MATERNAL [id number] [facility] ical & CHILD [address] [place] [address] 2019-10-09 2019-10-09 Office [facility] [id number] [facility] 08:16:20 08:48:41 Visit Tushar C COMPOSING ROOM MACHINIST APPRENTICE [id number] ity of [facility] [id number] Jamal as MATERNAL [phone] [facility] & CHILD [address] [place] [address] 2019-10-09 2019-10-09 [facility] [id number] 08:16:20 08:48:41 Visit Tushar C COMPOSING ROOM MACHINIST APPRENTICE [id number] REGIONAL [id number] MATERNAL [phone] & CHILD [address] [place] [address] 2019-10-09 2019-10-09 Outpatient R RIKY [facility] [id number] [facility] 08:15:00 08:15:[address]zo o [address] [facility] 2019-10-07 2019-10-07 Outpatient R RIKY [facility] [id number] [facility] 10:30:00 10:30:[address] [facility] 2019-09-27 2019-09-27 Telephone [facility] [id number] [facility] 00:00:00 00:00:00 Tushar C COMPOSING ROOM MACHINIST APPRENTICE [id number] ity of REGIONAL [id number] Jamal as MATERNAL [phone] Med ical & CHILD 107 [facility] 2019-09-25 2019-09-25 Refill [facility] [id number] [facility] 00:00:00 00:00:00 Tushar C COMPOSING ROOM MACHINIST APPRENTICE [id number] ity of REGIONAL [id number] Jamal as MATERNAL [phone] Med ical & CHILD 107 [facility] 2019-08-19 2019-08-19 Telephone [facility] 1.2.840.114 [id number] Univers 00:00:00 00:00:00 Tushar C COMPOSING ROOM MACHINIST APPRENTICE 350.1.13.10 ity of REGIONAL 4.2.7.2.686 Jamal as MATERNAL [phone] Med ical & CHILD 107 [facility] [place] 2019-08-16 2019-08-16 Case Joselyn [facility] [id number] Univers 00:00:00 00:00:00 Management Selam COMPOSING ROOM MACHINIST APPRENTICE 350.1.13.10 ity of [facility] 4.2.7.2.686 Jamal as MATERNAL [phone] Med ical & CHILD 111 [facility] 2019-08-15 2019-08-15 Office Provider, Ang-Rmchp [facility] 1 .2.840.114 [id number] Univers 10:43:37 11:14:30 Visit Selam Alves COMPOSING ROOM MACHINIST APPRENTICE 350.1.13.10 ity of REGIONAL 4.2.7.2.686 Jamal as MATERNAL [phone] Med ical & CHILD 107 [facility] 2019-08-15 2019-08-15 Outpatient R JOSELYN VTSOLE [facility] [id number] Univers 10:45:00 10:45:[address] [facility] 2019-07-23 2019-07-23 Telephone [facility], [facility] 1.2.840.114 [id number] Univers 00:00:00 00:00:00 Tushar Lund COMPOSING ROOM MACHINIST APPRENTICE 350.1.13.10 ity of REGIONAL 4.2.7.2.686 Jamal as MATERNAL [id number] [facility] & CHILD [address] [place] [address] 2019-07-19 2019-07-19 Orders Doctor MOSHE 1..840.114 [id number] Univers 00:00:00 00:00:00 Only Unassigned, TEDDY 350.1.13.10 ity of [employer] [facility] 4.2.7.2.686 Jamal as [phone] [address] 2019-07-08 2019-07-08 Telemedici [facility] 1.2.840.114 [id number] Univers 07:39:54 09:35:12 ne Visit Tushar Lund COMPOSING ROOM MACHINIST APPRENTICE 350.1.13.10 ity of [facility] 4.2.7.2.686 Jamal as MATERNAL [phone] [facility] & CHILD [address] [place] [address] 2019-07-08 2019-07-08 Outpatient R RIKY [facility] [id number] Univers 09:30:00 09:30:[address] [facility] 2019-07-05 2019-07-05 Telephone [facility], [facility] 1.2.840.114 [id number] Univers 00:00:00 00:00:00 Tushar Lund COMPOSING ROOM MACHINIST APPRENTICE 350.1.13.10 ity of REGIONAL 4.2.7.2.686 Jamal as MATERNAL [phone] [facility] & CHILD [address] [place] [address] 2019-04-29 2019-04-29 Telephone [facility], [facility] 1.2.840.114 [id number] Univers 00:00:00 00:00:00 Tushar C COMPOSING ROOM MACHINIST APPRENTICE 350.1.13.10 ity of [facility] 4.2.7.2.686 Jamal as MATERNAL [phone] [facility] & CHILD [address] [place] [address] 2019-04-01 2019-04-01 [facility] 1.2.840.114 [id number] Univers 00:00:00 00:00:00 Tushar Lund COMPOSING ROOM MACHINIST APPRENTICE 350.1.13.10 ity of [facility] 4.2.7.2.686 Jamal as MATERNAL [phone] [facility] ical & CHILD [address] [place] [address] 2019 2019 Office [facility], [facility] 1.2.593.830 [id number] Univers 10:39:31 11:16:49 Visit Tushar Lund COMPOSING ROOM MACHINIST APPRENTICE 350.1.13.10 ity of [facility] 4.2.7.2.686 Jamal as MATERNAL [phone] [facility] & CHILD [address] [place] [address] 2019 2019 Orders Doctor MOSHE 1.2.840.114 [id number] Univers 00:00:00 00:00:00 Only Unassigned, TEDDY 350.1.13.10 ity of [employer] [facility] 4.2.7.2.686 Jamal as [phone] [address] 2018-12-20 2018-12-20 Office [place], 1.2.840.9 [id number] [facility] 09:37:41 10:39:11 Visit Tushar Lund 48993.1.1 i ty of 3.104.2.7 [place] .3.597628 [facility]ica [facility] .[facility] [place] 2018-12-20 2018-12-20 Telephone [place], 1.2.840.2 [id number] Univers 00:00:00 00:00:00 Tushar Lund 52644.1.1 i ty of 3.104.2.7 [place] [id number] Medica l .8 [place] 2018-12-20 2018-12-20 Orders Doctor 1.2.840.2 [id number] Univers 00:00:00 00:00:00 Only Unassigned, 45648.1.1 ity of [employer] 3.104.2.7 [facility].148484 Medica l .8 [place] Results Test Description Test Time Test Comments [...] g/dL 31.6-35.1 L RDW-SD (test code = 05601-7) 38.7 fL 39.0-49.9 L RDW-CV (test code = 788-0) 15.1 % 12.0-15.5 PLT (test code = 777-3) 338 See_Comment [Au tomated message] The system which ge nerated this result transmit brendan reference range: 166 - 35 8 10*3/?L. The reference range was not used to interpret th is result as normal/abnormal . MPV (test code = 56917-7) 10.1 fL 9.5-12.9 NRBC/100 WBC (test code = 0.0 See_Comment [ Automated message] The 2664376817) system which ge nerated this result transmit brendan reference range: 0.0 - 10 .0 /100 WBCs. The reference r yancy was not used to interpr et this result as normal/abnor mal. NRBC x10^3 (test code = See_Comment [Au tomated message] The 5862575557) system which ge nerated this result transmit brendan reference range: 10*3/?L. The reference range was not u sed to interpret this result as normal/abnormal . GRAN MAT (NEUT) % (test code 72.3 % = 770-8) IMM GRAN % (test code = 0.90 % 9359831604) LYMPH % (test code = 736-9) 18.3 % MONO % (test code = 5905-5) 5.8 % EOS % (test code = 713-8) 2.5 % BASO % (test code = 706-2) 0.2 % GRAN MAT x10^3(ANC) (test 7.24 10*3/uL 1.88-7.09 H code = 8839873792) IMM GRAN x10^3 (test code = 0.09 10*3/uL 0.00-0.06 H 6373811074) LYMPH x10^3 (test code = 1.83 10*3/uL 1.32-3.29 731-0) MONO x10^3 (test code = 0.58 10*3/uL 0.33-0.92 742-7) EOS x10^3 (test code = 0.25 10*3/uL 0.03-0.39 711-2) BASO x10^3 (test code = 0.01-0.07 704-7) Lab Interpretation (test Abnormal code = 33997-3) [facility]. METABOLIC PANEL (21628)2022-07-25 03:39:13 Test Item Value Reference Range Interpretation Comments NA (test code = 138 mmol/L 135-145 4657480308) K (test code = 3.1 mmol/L 3.5-5.0 L 8063921398) CL (test code = 109 mmol/L 98-108 H 4939888418) CO2 TOTAL (test code = 21 mmol/L 23-31 L 5944839130) AGAP (test code = 8 2-16 0360297449) BUN (test code = 12 mg/dL 7-23 2695785758) GLUCOSE (test code = 100 mg/dL 70-110 5062448570) CREATININE (test code = 0.44 mg/dL 0.50-1.04 L 8665828670) TOTAL BILI (test code = 1.1 mg/dL 0.1-1.0 4421862838) CALCIUM (test code = 8.1 mg/dL 8.6-10.6 L 9777777779) T PROTEIN (test code = 6.1 g/dL 6.3-8.2 L 6634573932) ALBUMIN (test code = 2.9 g/dL 3.5-5.0 L 1767712025) ALK PHOS (test code = 101 U/L 34-122 8643279484) ALTv (test code = 11 U/L 5-35 1742-6) AST(SGOT) (test code = 19 U/L 13-40 4681930655) eGFR (test code = 182.3 mL/min/1.73m2 8241441784) ARGENIS (test code = ARGENIS) Association of [...] tests). Lab Interpretation Abnormal (test code = 73264-7) [facility] WITH [id number] 03:29:32 Test Item Value Reference Range Interpretation [...] (test code = 38.3 fL 39.0-49.9 L 69466-5) RDW-CV (test code = 15.1 % 12.0-15.5 788-0) PLT (test code = 279 See_Comment [Automated 777-3) message] The sy stem which generated this result transmitted reference range : 166 - 358 10*3/ ?L. The reference r yancy was not used to interpret this result as normal/abnormal . MPV (test code = 10.3 fL 9.5-12.9 22104-3) NRBC/100 WBC (test 0.0 See_Comment [Automat ed code = 9011337792) message] The system which generated this result transmitted reference range : 0.0 - 10.0 /100 WBCs. The refer ence range was not u sed to interpret th is result as normal/abnormal . NRBC x10^3 (test code See_Comment [Auto mated = 7252056898) message] The s ystem which generated this result transmitted reference range : 10*3/?L. The reference range was not used to interpret this result as normal/abnormal . GRAN MAT (NEUT) % 80.7 % (test code = 770-8) IMM GRAN % (test code 0.70 % = 7302351456) LYMPH % (test code = 11.3 % 736-9) MONO % (test code = 4.9 % 5905-5) EOS % (test code = 2.2 % 713-8) BASO % (test code = 0.2 % 706-2) GRAN MAT x10^3(ANC) 7.96 10*3/uL 1.88-7.09 H (test code = 1892782289) IMM GRAN x10^3 (test 0.07 10*3/uL 0.00-0.06 H code = 8845854224) LYMPH x10^3 (test code 1.12 10*3/uL 1.32-3.29 L = 731-0) MONO x10^3 (test code 0.48 10*3/uL 0.33-0.92 = 742-7) EOS x10^3 (test code = 0.22 10*3/uL 0.03-0.39 711-2) BASO x10^3 (test code 0.01-0.07 = 704-7) Lab Interpretation Abnormal (test code = 40383-3) [facility] IMMUNE [id number] 00:24:07 Test Item Value Reference Range Interpretation Comments RHIG CANDIDATE? No- see comment Patient i s not a (test code = candidate for R hIg- 5188) Patient is Rh Positive.Perfor med at [facility] Laboratory Services - [facility] Blood [address] [place] [id number] Free: [phone] A No. [id number] [facility] with [id number] 11:22:51 Test Item Value Reference Range Interpretation Comments WBC (test code = 21.75 See_Comment H [Automated 2793-2) message] The system which generated this result transmit brendan reference range : 4.30 - 11.10 10*3/?L. The reference range was not used to interpret this result as normal/abnormal . RBC (test code = 3.93 See_Comment [Automated 708-2) message] The system which generated this result [...] (test code = 37.8 fL 39.0-49.9 L 44748-4) RDW-CV (test code = 14.6 % 12.0-15.5 788-0) PLT (test code = 216 See_Comment [Automated 777-3) message] The system which generated this result transmit brendan reference range : 166 - 358 10*3/ ?L. The reference range was not u sed to interpret th is result as normal/abnormal . MPV (test code = 10.8 fL 9.5-12.9 57031-6) NRBC/100 WBC (test 0.0 See_Comment [Automat ed code = 3910156902) message] The system which generated this result transmit brendan reference range : 0.0 - 10.0 /100 WBCs. The reference range was not used to interpret this result as normal/abnormal . NRBC x10^3 (test code See_Comment [Auto mated = 2298283892) message] The system which generated this result transmit brendan reference range : 10*3/?L. The reference range was not used to interpret this result as normal/abnormal . SEG % (test code = 83 % 33-76 H 47375-2) BAND % (test code = 9 % 0-1 H 03035-5) LYMPH % (test code = 8 % 14-54 L 43670-9) ANC (test code = 20.01 10*3/uL 1.88-7.09 H 753-4) Lab Interpretation Abnormal (test code = 07539-5) [facility] with [id number] 11:22:51 Test Item Value Reference Range Interpretation [...] (test code = 37.8 fL 39.0-49.9 L 57670-4) RDW-CV (test code = 14.6 % 12.0-15.5 788-0) PLT (test code = 216 See_Comment [Automated 777-3) message] The system which generated this result transmit brendan reference range : 166 - 358 10*3/ ?L. The reference range was not u sed to interpret th is result as normal/abnormal . MPV (test code = 10.8 fL 9.5-12.9 06045-7) NRBC/100 WBC (test 0.0 See_Comment [Automat ed code = 8024070556) message] The system which generated this result transmit brendan reference range : 0.0 - 10.0 /100 WBCs. The reference range was not used to interpret this result as normal/abnormal . NRBC x10^3 (test code See_Comment [Auto mated = 6951484454) message] The system which generated this result transmit brendan reference range : 10*3/?L. The reference range was not used to interpret this result as normal/abnormal . SEG % (test code = 83 % 33-76 H 88893-2) BAND % (test code = 9 % 0-1 H 31969-6) LYMPH % (test code = 8 % 14-54 L 46161-1) ANC (test code = 20.01 10*3/uL 1.88-7.09 H 753-4) Lab Interpretation Abnormal (test code = 28498-7) [facility] URINALYSIS W SPECIFIC [id number] 19:23:00 Test Item Value Reference Range Interpretation [...] APPEAR (test code = 3267) . [facility] URINALYSIS W SPECIFIC [id number] 19:48:00 Test Item Value Reference Range Interpretation [...] U APPEAR (test code = 3267) . [facility]CIFIC [id number] 18:04:00 Test Item Value Reference Range Interpretation [...] APPEAR (test code = 3267) . [facility] with [id number] 04:55:42 Test Item Value Reference Range Interpretation Comments WBC (test code = 12.52 See_Comment H [Automated 3290-2) message] The sy stem which generated this result transmitted reference range : 4.30 - 11.10 10*3/?L. The reference range was not used to interpret this result as normal/abnormal . RBC (test code = 4.28 See_Comment [Automated 189-8) message] The sy stem which generated this [...] RDW-SD (test code = 39.8 fL 39.0-49.9 72357-9) RDW-CV (test code = 13.8 % 12.0-15.5 788-0) PLT (test code = 287 See_Comment [Automated 777-3) message] The sy stem which generated this result transmitted reference range : 166 - 358 10*3/ ?L. The reference r yancy was not used to interpret this result as normal/abnormal . MPV (test code = 11.0 fL 9.5-12.9 60435-4) NRBC/100 WBC (test 0.0 See_Comment [Automat ed code = 3172185320) message] The system which generated this result transmitted reference range : 0.0 - 10.0 /100 WBCs. The refer ence range was not u sed to interpret th is result as normal/abnormal . NRBC x10^3 (test code See_Comment [Auto mated = 2610288838) message] The s ystem which generated this result transmitted reference range : 10*3/?L. The reference range was not used to interpret this result as normal/abnormal . GRAN MAT (NEUT) % 68.4 % (test code = 770-8) IMM GRAN % (test code 1.10 % = 8705131082) LYMPH % (test code = 19.6 % 736-9) MONO % (test code = 6.5 % 5905-5) EOS % (test code = 3.8 % 713-8) BASO % (test code = 0.6 % 706-2) GRAN MAT x10^3(ANC) 8.56 10*3/uL 1.88-7.09 H (test code = 6381002003) IMM GRAN x10^3 (test 0.14 10*3/uL 0.00-0.06 H code = 1618067479) LYMPH x10^3 (test code 2.46 10*3/uL 1.32-3.29 = 731-0) MONO x10^3 (test code 0.82 10*3/uL 0.33-0.92 = 742-7) EOS x10^3 (test code = 0.47 10*3/uL 0.03-0.39 H 711-2) BASO x10^3 (test code 0.07 10*3/uL 0.01-0.07 = 704-7) Lab Interpretation Abnormal (test code = 49627-7) [facility] 1 Hour Post [id number] 04:31:20 Test Item Value Reference Range Interpretation Comments GLUC 1 HR (test code = 8554253169) 72 mg/dL 120-170 L Lab Interpretation (test code = Abnormal 65108-1) [facility] URINALYSIS W SPECIFIC [id number] 20:18:00 Test Item Value Reference Range Interpretation [...] APPEAR (test code = 3267) . [facility] URINALYSIS W SPECIFIC [id number] 20:18:00 Test Item Value Reference Range Interpretation [...] APPEAR (test code = 3267) . [facility] URINALYSIS W SPECIFIC [id number] 17:24:00 Test Item Value Reference Range Interpretation [...] APPEAR (test code = 3267) . [facility] URINALYSIS W SPECIFIC [id number] 16:03:00 Test Item Value Reference Range Interpretation [...] APPEAR (test code = 3267) . [facility] URINALYSIS W SPECIFIC [id number] 17:19:00 Test Item Value Reference Range Interpretation [...] APPEAR (test code = 3267) . [facility] URINALYSIS W SPECIFIC [id number] 17:19:00 Test Item Value Reference Range Interpretation [...] APPEAR (test code = 3267) . [facility] URINALYSIS W SPECIFIC [id number] 16:39:00 Test Item Value Reference Range Interpretation [...] POCT U APPEAR (test code = 3267) [facility] URINALYSIS W SPECIFIC [id number] 19:37:00 Test Item Value Reference Range Interpretation [...] APPEAR (test code = 3267) . [facility] URINALYSIS W SPECIFIC [id number] 15:33:00 Test Item Value Reference Range Interpretation [...] APPEAR (test code = 3267) . [facility] [id number] 14:34:00 Test Item Value Reference Range Interpretation Comments POCT PREG (test code = 1605) Positive On board controls acceptable with C Yes Line (test code = 3574) POCT PREG LOT # (test code = 3575) POCT PREG TEST DATE (test code = 357) [facility] URINALYSIS W/O SPECIFIC [id number] 14:34:00 Test Item Value Reference Range Interpretation [...] code = 3257) negative Negative - Negative [facility] [id number] 14:34:00 Test Item Value Reference Range Interpretation Comments POCT PREG (test code = 1605) Positive On board controls acceptable with C Yes Line (test code = 3574) POCT PREG LOT # (test code = 3575) POCT PREG TEST DATE (test code = 357) [facility] URINALYSIS W/O SPECIFIC [id number] 14:34:00 Test Item Value Reference Range Interpretation [...] code = 3257) negative Negative - Negative [facility] [id number] 14:31:00 Test Item Value Reference Range Interpretation Comments POCT PREG (test code = 1605) Positive On board controls acceptable with C Yes Line (test code = 3574) POCT PREG LOT # (test code = 3575) POCT PREG TEST DATE (test code = 3576) [facility] [id number] 18:26:00 Test Item Value Reference Range Interpretation Comments POCT PREG (test code Negative = 1605) On board controls Yes acceptable with C Line (test code = 3574) POCT PREG LOT # (test code = 3575) POCT PREG TEST DATE (test code = 3576) ARGENIS (test code = ARGENIS) accurate development and interpretation of all internal controls [facility]
[2023-01-08 23:39] LABS: Specific Gravity 1.025 (1.005-1.030)
--- NOTE | 2023-01-08 23:42 | EDPHYS ---
Physician Documentation [facility] Name: Sil Gaytan Age: 22 yrs Sex: Female : 2000 Arrival Date: 01/08/2023 Time: 22:14 Bed 12 Private MD: ED Physician Natali Lauren HPI: 01/08 22:56 This 22 yrs old Female presents to ER via Unassigned with complaints of ABSENCE OF sb4 MENUSTRATION. 22:56 Patient states that she has taken 2 home test that have been positive however sb4 she needs proof from a doctor to get approved for Medicaid. She comes in requesting a test. She has no concerns or complaints at this time. Historical: - Allergies: 22:30 Codeine; pf1 22:30 PENICILLINS; pf1 22:30 Prednisone; pf1 - PMHx: 22:30 Asthma; Hypertensive disorder; pf1 - PSHx: 22:30 ; pf1 - Immunization history:: Adult Immunizations up to date, Client reports having NOT received the Covid vaccine. - Social history:: Smoking status: Smoking status: Patient denies any tobacco usage or history of. Patient uses street drugs, marijuana, Patient/guardian denies using alcohol. ROS: 22:56 Constitutional: Negative for fever, chills, and weight loss, sb4 22:56 : Positive for missed period, 22:56 All other systems are negative, Exam: 22:56 Constitutional: This is a well developed, well nourished patient who is awake, alert, sb4 and in no acute distress. Head/Face: Normocephalic, atraumatic. Eyes: Extra-ocular motions intact. Periorbital areas with no swelling, redness, or edema. ENT: Mucous membranes moist. Skin: Warm, dry with normal turgor. Normal color with no rashes, no lesions, and no evidence of cellulitis. Vital Signs: 22:28 BP 142 / 85; Pulse 90; Resp 18; Temp 98.4; Pulse Ox 100% on R/A; Weight 79.38 kg; pf1 Height 5 ft. 6 in. ; Pain 0/10; 23:30 BP 135 / 75; Pulse 89; Resp 16; Pulse Ox 100% ; pf1 22:28 Body Mass Index 28.25 (79.38 kg, 167.64 cm) pf1 22:28 Pain Scale: Adult pf1 MDM: 22:35 Patient medically screened. sb4 22:56 Differential diagnosis: versus non. sb4 23:41 Data reviewed: vital signs, nurses notes, lab test result(s), and as a result, I will sb4 discharge patient. 01/08 22:56 Order name: Test, Urine; Complete Time: 23:41 sb4 Administered Medications: No medications were administered Disposition Summary: 01/08/23 23:41 Discharge Ordered Notes: Location: Home sb4 Problem: new sb4 Symptoms: are unchanged sb4 Condition: Stable sb4 Diagnosis - Encounter for test, result positive sb4 Followup: sb4 - With: Emergency Department - When: As needed - Reason: Trouble breathing, Worsening of condition Discharge Instructions: - Discharge Summary Sheet sb4 - Care sb4 - First Trimester of , Awwj-rn-Ayeg sb4 Forms: - Medication Reconciliation Form sb4 - Thank You Letter sb4 - Antibiotic Education sb4 - Prescription Opioid Use sb4 - Patient Portal Instructions sb4 - Leadership Thank You Letter sb4 Signatures: Dispatcher [employer] Lesly Burger PA-C PAHusam sb4 Kelly Martinez, RN RN pf1
--- NOTE | 2023-01-08 23:53 | ER ---
Nurse's Notes [facility] Name: Sil Gaytan Age: 22 yrs Sex: Female : 2000 Arrival Date: 01/08/2023 Time: 22:14 Bed 12 Private MD: Diagnosis: Encounter for test, result positive Presentation: 01/08 22:28 Chief complaint: Patient states: missing a menstrual cycle,onset this month. Patient pf1 stated last menstrual cycle on 12/04/22. Patient denies any pain or vaginal bleeding. 22:28 Coronavirus screen: Vaccine status: Patient reports being unvaccinated. Client denies pf1 travel out of the [place] in the last 14 days. At this time, the client does not indicate any symptoms associated with coronavirus-19. Ebola Screen: Patient negative for fever greater than or equal to 101.5 degrees Fahrenheit, and additional compatible Ebola Virus Disease symptoms. Initial Sepsis Screen: Does the patient meet any 2 criteria? No. Patient's initial sepsis screen is negative. Does the patient have a suspected source of infection? No. Patient's initial sepsis screen is negative. Risk Assessment: Do you want to hurt yourself or someone else? Patient reports no desire to harm self or others. 22:28 Method Of Arrival: Ambulatory pf1 22:28 Acuity: DELMAR 4 pf1 Historical: - Allergies: 22:30 Codeine; pf1 22:30 PENICILLINS; pf1 22:30 Prednisone; pf1 - PMHx: 22:30 Asthma; Hypertensive disorder; pf1 - PSHx: 22:30 ; pf1 - Immunization history:: Adult Immunizations up to date, Client reports having NOT received the Covid vaccine. - Social history:: Smoking status: Smoking status: Patient denies any tobacco usage or history of. Patient uses street drugs, marijuana, Patient/guardian denies using alcohol. Screenin:30 [facility] ED Fall Risk Assessment (Adult) History of falling in the last 3 months, pf1 including since admission No falls in past 3 months (0 pts) Confusion or Disorientation No (0 pts) Intoxicated or Sedated No (0 pts) Impaired Gait No (0 pts) Mobility Assist Device Used No (0 pt) Altered Elimination No (0 pt) Score/Fall Risk Level 0 - 2 = Low Risk Oriented to surroundings, Maintained a safe environment, Educated pt \T\ family on fall prevention, incl call for assistance when getting out of bed, Assessed \T\ reinforced patient's understanding of fall precautions, Provided non-skid footwear, Hourly rounding (assess needs \T\ fall precautionary measures) done, Used ambulatory aids as needed (educated on \T\ assisted with), Used gait belt as appropriate. 22:30 Abuse screen: Denies threats or abuse. Nutritional screening: No deficits noted. pf1 Tuberculosis screening: No symptoms or risk factors identified. Assessment: 22:28 General: Appears in no apparent distress. comfortable, well groomed, well developed, pf1 Behavior is calm, cooperative, appropriate for age, quiet. 22:28 Pain: Denies pain. Neuro: No deficits noted. Level of Consciousness is awake, alert, pf1 obeys commands, Oriented to person, place, time, situation. Cardiovascular: No deficits noted. Capillary refill < 3 seconds Patient's skin is warm and dry. Respiratory: No deficits noted. Airway is patent Respiratory effort is even, unlabored, Respiratory pattern is regular, symmetrical. GI: No deficits noted. No signs and/or symptoms were reported involving the gastrointestinal system. : Reports missed a menstrual cycle, is concerned for . EENT: No deficits noted. No signs and/or symptoms were reported regarding the EENT system. Derm: No deficits noted. No signs and/or symptoms reported regarding the dermatologic system. 23:30 Reassessment: Patient appears in no apparent distress at this time. Patient and/or pf1 family updated on plan of care and expected duration. Pain level reassessed. Patient states symptoms have improved. Vital Signs: 22:28 BP 142 / 85; Pulse 90; Resp 18; Temp 98.4; Pulse Ox 100% on R/A; Weight 79.38 kg; pf1 Height 5 ft. 6 in. ; Pain 0/10; 23:30 BP 135 / 75; Pulse 89; Resp 16; Pulse Ox 100% ; pf1 22:28 Body Mass Index 28.25 (79.38 kg, 167.64 cm) pf1 22:28 Pain Scale: Adult pf1 ED Course: 22:16 Patient arrived in ED. [id number] 22:28 Patient did not have IV access during this emergency room visit. pf1 22:28 Patient has correct armband on for positive identification. Bed in low position. Call pf1 light in reach. 22:30 No provider procedures requiring assistance completed. pf1 22:30 Arm band placed on right wrist. pf1 22:35 [facility] sb4 22:35 Natali Lauren MD is Attending Physician. sb4 23:12 Test, Urine Sent. oe 23:44 Triage completed. pf1 23:53 Provided Education on: follow up with [facility]. pf1 Administered Medications: No medications were administered Medication: 01/09 07:15 VIS not applicable for this client. pf1 Outcome: 01/08 23:41 Discharge ordered by . sb4 23:52 Discharged to home ambulatory, pf1 23:52 Condition: unchanged 23:52 Discharge instructions given to patient, Instructed on discharge instructions, follow up and referral plans. Demonstrated understanding of instructions, follow-up care, 23:53 Patient left the ED. pf1 Signatures: Santiago Griffin Jennifer [email or web address] Lesly Mays PA-C PA-C sb4 Kelly Martinez, RN RN pf1
[2023-01-09 00:14] VITALS: BP 142/85; TEMP 98.4; O2SAT 100
== END 2023-01-08 23:53 | disposition home or self-care (01) ==
LOC: ER 22:14
DX: Z32.01 Encounter for pregnancy test, result positive (principal)
CPT/HCPCS: 81025; 99283

== ENCOUNTER 2023-01-21 02:01 | Emergency (ER) | payer SELFPAY ==
--- OUTSIDE RECORDS SUMMARY | 2023-01-21 02:19 | XMS REPORT | Continuity of Care Document ---
:2000 Author Organization [facility] t Address [address] [place] [address] Care Team Providers Name Role Phone TUSHAR LAN Primary Care Physician Unavailable KASEY BLANCO Attending Clinician Unavailable KASEY BLANCO Attending Clinician Unavailable TUSHAR LAN Attending Clinician Unavailable Tushar Villarreal Attending Clinician [phone] MOSHE AGOSTO Attending Clinician Unavailable [facility] Attending Clinician Unavailable HETAL NORRIS Attending Clinician Unavailable Hetal Norris MD Attending Clinician Patt Nova RN Attending Clinician Unavailable AUSTIN ARZOLA Attending Clinician Unavailable Austin Arzola MD Attending Clinician Doctor Unassigned, [place] Attending Clinician Unavailable Antonette Solano CNM Attending Clinician ANTONETTE SOLANO Attending Clinician Unavailable SHEREEN TRAVIS Attending Clinician Unavailable Risk, Idl-Galif-P[facility]/High Attending Clinician Unavailable Shereen Travis MD Attending [...] Prieto MD S Attending Clinician Maria PALACIOS, CUTTER OUT, R Attending Clinician Fer, Ang-Rmchp Attending Clinician [...] Effective Date Expiration Date Daniel del angel [facility] STAR [id number] 2021 00:00:00 Problems Condition Condition Condition Status Onset Resolution Last Treating Co mments Source Name Details Category Date Date Treatment Clinician Date Well woman Well woman Disease Active U nivers exam exam 7-12 ity of 00:00: [facility] Routine Routine Disease Active Univers 6-16 [place] of [place] [facility] Disease Active Uni vers induced induced 6-02 ity of hypertensi hypertens[place] 00:[place], [place], 00 Medical antepartum antepartum Br anch Disease Active U nivers state state 6-02 ity of 00:00: [place] [facility] Obesity Obesity Disease Active Univers (BMI (BMI 5-28 ity of 30-39.9) 30-39.9) 00:00: [facility] Branch Postoperat Postoperat Disease Active U nivers chris fever chris fever 5-28 ity of 00:00: [facility] Disease Active Univers premature premature 5-25 ity of rupture of rupture of 00:00[place] membranes membranes 00 [facility] (PPROM) (PPROM) [place] with onset with onset of labor of labor within 24 within 24 hours of hours of rupture in rupture in third third trimester, trimester, antepartum antepartum 36 weeks 36 weeks Disease Active Unive rs gestation gestation 5-25 ity of of of 00:00: [place] 00 [facility] Liveborn Liveborn Disease Active Unive rs infant, of , of 5-25 it y of [place] , , 00 Me dical born in born in [place] [facility] by by delivery delivery UTI [...] [facility] Multiparit Multiparit Disease Active U david y y 3-02 ity of 00:00: [place] 00 Medical Branch History of History of Disease Active 2021-02 U nivers pre-eclamp pre-eclamp 0-27 it y of [place] 00:00: [place] prior prior 00 Medical , , Br anch currently currently Disease Active 2021-02 Uni vers related related 0-27 ity of nausea, nausea, 00:00: [place] antepartum antepartum 00 Me dical Branch Declines Declines Disease Active 2021-02 Unive rs flu flu 0-27 ity of vaccine vaccine 00:00: [place] 00 Medical Branch History of History of Disease Active 2021-02 U nivers anxiety anxiety 0-27 ity of and and 00:00: [place] depression depression 00 Wv dical Branch Missed Missed Disease Active 2021-02 Univers menses menses 0-13 ity of 00:00: [place] 00 Medical Branch History of History of Disease Active 2021-02 U nivers 0-13 ity of delivery, delivery, 00:00: Inessa taylor currently currently 00 Medi lottie Branch Other Other Disease Active Univers general general 8-02 ity of counseling counseling 00:00[place] and advice and advice 00 W[place] dical for for Branch contracept contracept chris chris management management Elevated Elevated Disease Active Unive rs blood blood 8-02 ity of pressure pressure 00:00: [place] reading reading 00 Medical without without Branch [...] 00 Medical Branch CODEINE DRUG Active COUGH 2019- Univers INGREDI 0-29 ity of 00:00: [place] [...] Comments Source ASSERTION 2021-11-25 University of 00:00:00 [place] [facility] History SDOH University o f Alcohol Std Drinks [place] [facility] History SDOH University o f Alcohol Binge [place] Medic al Branch History SDOH University o f Alcohol Comment [place] Med ical Branch Sexual orientation [facility] Exposure to 2022-07-11 2022-07-21 Not sure University of SARS-CoV-2 (event) 00:00:00 10:35:00 [facility] History of Social 2021-12-23 2021-12-23 Univers ity of function 00:00:00 00:00:00 [facility] Alcohol intake 2020-06-23 2020-06-23 Lifetime University of 00:00:00 00:00:00 non-drinker [place] Medical (finding) Branch Tobacco use and 2018-12-20 2018-12-20 Smokeless Universit y of exposure 00:00:00 00:00:[address] [facility] dical Branch History SDOH 2018-12-20 2018-12-20 1 University o f Alcohol Frequency 00:00:00 00:00:00 [facility] edical Branch Sex Assigned At 2000 2002 Universit y of 00:00:00 00:00:00 [facility] Smoking Status Start Date Stop Date Source Never smoked tobacco [facility] Medications Ordered Filled Start Stop Current Ordering [...] Until Discontinu ed, Routine labetaloL 2022-0 Yes [id number] 200mg Take 1 U nivers 200 mg 6-02 tablet by ity of tablet 00:00: mouth [place] 00 every 12 Medical (twelve) Branch hours. labetaloL 2022-0 Yes [id number] 200mg Take 1 U nivers 200 mg 6-02 tablet by ity of tablet 00:00: mouth [place] 00 every 12 Medical (twelve) Branch hours. labetaloL 2022-0 Yes [id number] 200mg Take 1 U nivers 200 mg 6-02 tablet by ity of tablet 00:00: mouth [place] 00 every 12 Medical (twelve) Branch hours. labetaloL 2022-0 Yes [id number] 200mg Take 1 U nivers 200 mg 6-02 tablet by ity of tablet 00:00: mouth [place] 00 every 12 Medical (twelve) Branch hours. labetaloL 2022-0 Yes [id number] 200mg Take 1 U nivers 200 mg 6-02 tablet by ity of tablet 00:00: mouth [place] 00 every 12 Medical (twelve) Branch hours. labetaloL 2023-0 Yes [id number] 200mg Take 1 U nivers 200 mg 6-02 tablet by ity of tablet 00:00: mouth [place] 00 every 12 Medical (twelve) Branch hours. labetaloL 2022-0 Yes [id number] 200mg Take 1 U nivers 200 mg 6-02 tablet by ity of tablet 00:00: mouth [place] 00 every 12 Medical (twelve) Branch hours. labetaloL 202-0 Yes [id number] 200mg Take 1 U nivers 200 mg 6-02 tablet by ity of tablet 00:00: mouth [place] 00 every 12 Medical (twelve) Branch hours. labetaloL Yes [id number] 200mg Take 1 U nivers 200 mg [...] First dose [place] mg 00 on [facility] 07/24/22 at Branch 2000, Until Discontinu ed, Routine ceFAZolin 2022- No 1000mg 1,000 mg, Univers (ANCEF) 07-24 IV ity of 1,000 mg in 19:00: 18:59 [place], [place] NaCl 0.9% 00 :00 Q8H ABX, 6 Medi lottie (NS) 100 mL doses, [place] MINI-BAG First dose (after last modificati on) on [place] 07/24/22 at 1400, Last dose on Mon07/26/22 at 0600, Administer over 30 Minutes, 100 mL
Reas on for Anti-Infec tive: Documented Infection< br>Documen brendan Infection Site: Urine
D uration of Therapy: Other (see Comments) rho(D) Yes 300ug 300 mcg, Univer s immune 07-24 Intramuscu ity of globulin 15:24: lar, ONCE, [place] (RHOGAM) 51 For 1 Medical syringe 300 dose, [place] mcg Conditiona l, Routine HYDROcodone Yes 2{tbl} 2 tablet, Univers -acetaminop 07-24 Oral, ity of hen (NORCO 15:23: Q6HPRN, [place] 5) 5-325 mg 27 Starting Medi lottie tablet 2 on [facility] tablet 07/24/22 at 1023, Until Discontinu ed, Routine, Pain (scale 7-10), Alternate with Ibuprofen HYDROcodone 2023-0 Yes 1{tbl} 1 tablet, Univers -acetaminop 07-24 Oral, ity of hen (NORCO 15:23: Q6HPRN, [place] 5) 5-325 mg 22 Starting Medi lottie tablet 1 on [facility] tablet 07/24/22 at 1023, Until Discontinu ed, Routine, Pain (scale 4-6), Alternate with Ibuprofen diphenhydrA 2023-0 Yes 25mg 25 mg, Univ ers MINE 5- Slow IV ity of (BENADRYL) 15:21: Push, [place] injection 28 Q6HPRN, Medical 25 mg Starting Branch on 07/24/22 at 1021, Until Discontinu ed, Routine, Itching diphenhydrA 3-0 Yes 25mg 25 mg, Univ ers MINE 07-24 Oral, ity of (BENADRYL) 15:21: Q6HPRN, [place] tablet 25 28 Starting Medica l mg on [place] Branch 07/24/22 at 1021, Until Discontinu ed, Routine, Sleep, Itching ondansetron 3-0 Yes 4mg 4 mg, Slow Univers (ZOFRAN 07-24 IV Push, ity of (PF)) 15:21: Q8HPRN, [place] injection 4 28 Starting Medi lottie mg on [facility] 07/24/22 at 1021, Until Discontinu ed, Routine, Nausea and Vomiting (N/V) bisacodyL 2022-0 Yes 10mg 10 mg, Univer s (DULCOLAX) 07-24 Rectal, ity of suppository 15:21: QDAILYPRN, [place] 10 mg 28 Starting Medical on [place] Branch 07/24/22 at 1021, Until Discontinu ed, Routine, Constipati on simethicone 2023-0 Yes 160mg 160 mg, Un odilon (GAS RELIEF 07-24 Oral, ity of (SIMETHICON 15:21: PC+HSPRN, [place] E)) 28 Starting Medical chewable on [facility] tablet 160 07/24/22 at mg 1021, Until Discontinu ed, Routine, Gas docusate 3-0 Yes 200mg 200 mg, Unive rs (COLACE) 5-28 Oral, ity of capsule 200 15:21: QDAILYPRN, [...] 07-23 mouth. ity of fum/folic/d 12:50: 00:00 [place] betancur 40 :00 Medical (-1 Branch ORAL) HYDROcodone 2022- No 1{tbl} 1 tablet, Univers -acetaminop 07-23 Oral, ity of hen (NORCO 01:41: 01:40 Q6HPRN, [place] 5) 5-325 mg 26 :26 Starting Medi lottie tablet 1 on Mon Branch tablet 07/22/22 at 2040, Until 07/24/22 at 2039, Routine, Pain (scale 4-6) Nitrofurant 2022- No 100mg 100 mg, U nivers oin&Nit. 07-23 06-03 Oral, BID, ity of Macrocryst 01:00: [...]
D uration of Therapy: 7 days Yes [id number] 1{tbl} Take 1 Univers vitamin 5-27 tablet by ity of w/FA tablet 00:00: mouth in [place] 00 the Medical morning. Branch docusate Yes [id number] 200mg Take 2 U nivers 100 mg 5-27 capsules ity of capsule 00:00: by mouth [place] 00 once daily Medical as needed Branch for Constipati on. ferrous Yes [id number] 325mg Take 1 Un odilon sulfate 325 5-27 tablet by ity of mg (65 mg 00:00: [place] iron) 00 the Medical tablet morning Branch and 1 tablet in the evening. ibuprofen Yes [id number] 600mg Take 1 Univers 600 mg 5-27 tablet by ity of tablet 00:00: mouth [place] 00 every 6 Medical (six) Branch hours as needed (Pain). Take with food or milk. Yes [id number] 1{tbl} Take 1 Univers vitamin 5-27 tablet by ity of w/FA tablet 00:00: mouth in [place] 00 the Medical morning. Branch docusate Yes [id number] 200mg Take 2 U nivers 100 mg 5-27 capsules ity of capsule 00:00: by mouth [place] 00 once daily Medical as needed Branch for Constipati on. ferrous Yes [id number] 325mg Take 1 Un odilon sulfate 325 5-27 tablet by ity of mg (65 mg 00:00: [place] iron) 00 the Medical tablet morning Branch and 1 tablet in the evening. Yes [id number] 1{tbl} Take 1 Univers vitamin 5-27 tablet by ity of w/FA tablet 00:00: mouth in [place] 00 the Medical morning. Branch docusate 0 Yes [id number] 200mg Take 2 U nivers 100 mg 5-27 capsules ity of capsule 00:00: by mouth [place] 00 once daily Medical as needed Branch for Constipati on. ferrous Yes [id number] 325mg Take 1 Un odilon sulfate 325 5-27 tablet by ity of mg (65 mg 00:00: [place] iron) 00 the Medical tablet morning Branch and 1 tablet in the evening. Yes [id number] 1{tbl} Take 1 Univers vitamin 5-27 tablet by ity of w/FA tablet 00:00: mouth in [place] 00 the Medical morning. Branch docusate Yes [id number] 200mg Take 2 U nivers 100 mg 5-27 capsules ity of capsule 00:00: by mouth [place] 00 once daily Medical as needed Branch for Constipati on. ferrous Yes [id number] 325mg Take 1 Un odilon sulfate 325 5-27 tablet by ity of mg (65 mg 00:00: [place] iron) 00 the Medical tablet morning Branch and 1 tablet in the evening. Yes [id number] 1{tbl} Take 1 Univers vitamin 5-27 tablet by ity of w/FA tablet 00:00: mouth in [place] 00 the Medical morning. Branch docusate 0 Yes [id number] 200mg Take 2 U nivers 100 mg 5-27 capsules ity of capsule 00:00: by mouth [place] 00 once daily Medical as needed Branch for Constipati on. ferrous 0 Yes [id number] 325mg Take 1 Un odilon sulfate 325 5-27 tablet by ity of mg (65 mg 00:00: [place] iron) 00 the Medical tablet morning Branch and 1 tablet in the evening. 0 Yes [id number] 1{tbl} Take 1 Univers vitamin 5-27 tablet by ity of w/FA tablet 00:00: mouth in [place] 00 the Medical morning. Branch docusate 0 Yes [id number] 200mg Take 2 U nivers 100 mg 5-27 capsules ity of capsule 00:00: by mouth [place] 00 once daily Medical as needed Branch for Constipati on. ferrous 2022-0 Yes [id number] 325mg Take 1 Un odilon sulfate 325 5-27 tablet by ity of mg (65 mg 00:00: [place] iron[place] 00 the Medical tablet morning Branch and 1 tablet in the evening. 2022-0 Yes [id number] 1{tbl} Take 1 Univers vitamin 5-27 tablet by ity of w/FA tablet 00:00: mouth in [place] 00 the Medical morning. Branch docusate 0 Yes [id number] 200mg Take 2 U nivers 100 mg 5-27 capsules ity of capsule 00:00: by mouth [place] 00 once daily Medical as needed Branch for Constipati on. ferrous 0 Yes [id number] 325mg Take 1 Un odilon sulfate 325 5-27 tablet by ity of mg (65 mg 00:00: mouth [place] iron[place] 00 the Medical tablet morning Branch and 1 tablet in the evening. 0 Yes [id number] 1{tbl} Take 1 Univers vitamin 5-27 tablet by ity of w/FA tablet 00:00: mouth in [place] 00 the Medical morning. Branch docusate 0 Yes [id number] 200mg Take 2 U nivers 100 mg 5-27 capsules ity of capsule 00:00: by mouth [place] 00 once daily Medical as needed Branch for Constipati on. ferrous 2022-0 Yes [id number] 325mg Take 1 Un odilon sulfate 325 5-27 tablet by ity of mg (65 mg 00:00: mouth [place] iron[place] 00 the Medical tablet morning Branch and 1 tablet in the evening. 2022-0 Yes [id number] 1{tbl} Take 1 Univers vitamin 5-27 tablet by ity of w/FA tablet 00:00: mouth in [place] 00 the Medical morning. Branch docusate 0 Yes [id number] 200mg Take 2 U nivers 100 mg 5-27 capsules ity of capsule 00:00: by mouth [place] 00 once daily Medical as needed Branch for Constipati on. ferrous 2022-0 Yes [id number] 325mg Take 1 Un odilon sulfate 325 5-27 tablet by ity of mg (65 mg 00:00: mouth [place] iron[place] 00 the Medical tablet morning Branch and 1 tablet in the evening. 0 Yes [id number] 1{tbl} Take 1 Univers vitamin 5-27 tablet by ity of w/FA tablet 00:00: mouth in [place] 00 the Medical morning. Branch docusate 0 Yes [id number] 200mg Take 2 U nivers 100 mg 5-27 capsules ity of capsule 00:00: by mouth [place] 00 once daily Medical as needed Branch for Constipati on. ferrous Yes [id number] 325mg Take 1 Un odilon sulfate 325 5-27 tablet by ity of mg (65 mg 00:00: [place] iron[place] 00 the Medical tablet morning Branch and 1 tablet in the evening. 0 Yes [id number] 1{tbl} Take 1 Univers vitamin 5-27 tablet by ity of w/FA tablet 00:00: mouth in [place] 00 the Medical morning. Branch docusate 0 Yes [id number] 200mg Take 2 U nivers 100 mg 5-27 capsules ity of capsule 00:00: by mouth [place] 00 once daily Medical as needed Branch for Constipati on. ferrous 0 Yes [id number] 325mg Take 1 Un odilon sulfate 325 5-27 tablet by ity of mg (65 mg 00:00: [place] iron[place] 00 the Medical tablet morning Branch and 1 tablet in the evening. 2022-0 Yes [id number] 1{tbl} Take 1 Univers vitamin 5-27 tablet by ity of w/FA tablet 00:00: mouth in [place] 00 the Medical morning. Branch docusate 0 Yes [id number] 200mg Take 2 U nivers 100 mg 5-27 capsules ity of capsule 00:00: by mouth [place] 00 once daily Medical as needed Branch for Constipati on. ferrous 0 Yes [id number] 325mg Take 1 Un odilon sulfate 325 5-27 tablet by ity of mg (65 mg 00:00: [place] iron[place] 00 the Medical tablet morning Branch and 1 tablet in the evening. 2022-0 Yes [id number] 1{tbl} Take 1 Univers vitamin 5-27 tablet by ity of w/FA tablet 00:00: mouth in [place] 00 the Medical morning. Branch docusate Yes [id number] 200mg Take 2 U nivers 100 mg 5-27 capsules ity of capsule 00:00: by mouth [place] 00 once daily Medical as needed Branch for Constipati on. ferrous Yes [id number] 325mg Take 1 Un odilon sulfate 325 5-27 tablet by ity of mg (65 mg 00:00: mouth [place] iron) 00 the Medical tablet morning Branch and 1 tablet in the evening. Yes [id number] 1{tbl} Take 1 Univers vitamin 5-27 tablet by ity of w/FA tablet 00:00: mouth in [place] 00 the Medical morning. Branch docusate Yes [id number] 200mg Take 2 U nivers 100 mg 5-27 capsules ity of capsule 00:00: by mouth [place] 00 once daily Medical as needed Branch for Constipati on. ferrous Yes [id number] 325mg Take 1 Un odilon sulfate 325 [...] Indication s: acute pain ibuprofen 2022- No [id number] 600mg Take 1 Univers 600 mg 5-27 [...] 07-22 Oral, ity of (TYLENOL) 20:00: Q6HPRN, [place] tablet 650 00 Starting Medic al mg on Mon Branch 07/22/22 at 1500, Until Discontinu ed, Routine, Pain acetaminoph 2022-0 Yes 650mg 650 mg, Un odilon en 07-22 Oral, ity of (TYLENOL) 20:00: Q6HPRN, [place] tablet 650 00 Starting Medic al mg [...] dose on Mon07/22/22 at 1200, Routine lactated 2022-3- No 1000mL at 125 Univ ers ringers IV 5-25 05-25 mL/hr, ity of infusion 21:30: 20:12 1,000 mL, [place] 1,000 mL 00 :06 IV Medical Infusion, Branch ONCE, 1 dose, On [facility] 07/21/22 at 1630, Routine diphenhydrA 2022-0 Yes 25mg 25 mg, Univ ers MINE 5-25 Slow IV ity of (BENADRYL) 20:34: Push, [place] injection 05 Q6HPRN, Medical 25 mg Starting Branch on [facility] 07/21/22 at 1534, Until Discontinu ed, Routine, Itching diphenhydrA 2022-0 Yes 25mg 25 mg, Univ ers MINE 5-25 Oral, ity of (BENADRYL) 20:34: Q6HPRN, [place] tablet 25 05 Starting Medica l mg on [facility] Branch 07/21/22 at 1534, Until Discontinu ed, Routine, Sleep, Itching ondansetron 2022-0 Yes 4mg 4 mg, Slow Univers (ZOFRAN 5-25 IV Push, ity of (PF)) 20:34: Q8HPRN, [place] injection 4 05 Starting Medi lottie mg on [facility] Branch 07/21/22 at 1534, Until Discontinu ed, Routine, Nausea and Vomiting (N/V) bisacodyL 0 Yes 10mg 10 mg, Univer s (DULCOLAX) 5-25 Rectal, ity of suppository 20:34: QDAILYPRN, [place] 10 mg 05 Starting Medical on [facility] Branch 07/21/22 at 1534, Until Discontinu ed, Routine, Constipati on simethicone 2022-0 Yes 160mg 160 mg, Un odilon (GAS RELIEF 5-25 Oral, ity of (SIMETHICON 20:34: PC+HSPRN, [place] E)) 05 Starting Medical chewable on [facility] tablet 160 07/21/22 at mg 1534, Until [...] 25 05 Starting Medica l mg on [facility] Branch 07/21/22 at 1534, Until Discontinu ed, Routine, Sleep, Itching ondansetron 0 Yes 4mg 4 mg, Slow Univers (ZOFRAN 5-25 IV Push, ity of (PF)) 20:34: Q8HPRN, [place] injection 4 05 Starting Medi lottie mg on [facility] Branch 07/21/22 at 1534, Until Discontinu ed, Routine, Nausea and Vomiting (N/V) bisacodyL 2022-0 Yes 10mg 10 mg, Univer s (DULCOLAX) 5-25 Rectal, ity of suppository 20:34: QDAILYPRN, [place] 10 mg 05 Starting Medical on [facility] Branch 07/21/22 at 1534, Until Discontinu ed, Routine, Constipati on simethicone 2022-0 Yes 160mg 160 mg, Un odilon (GAS RELIEF 5-25 Oral, ity of (SIMETHICON 20:34: PC+HSPRN, [place] E)) 05 Starting Medical chewable on [facility] Branch tablet 160 07/21/22 at mg [...] ity of 2,000 mg in 19:30: 19:07 [place], [place] NaCl 0.9% 00 :00 ONCE, 1 Medical (NS) 100 mL dose, On Bran ch MINI-BAG [place] 07/21/22 at 1430, Administer over 30 Minutes, 100 mL
Reas on for Anti-Infec tive: Surgical Prophylaxi s
Surgi lottie Prophylaxi s: Abdominal< br>Dura tion of therapy: within 24 hours of surgery terbutaline No .25mg 0.25 mg, Univers (BRETHINE) 07-21 Subcutaneo it y of injection 16:37: 20:41 [place], Q15MIN [place] 0.25 mg 33 :35 PRN, 3 Medical doses, Branch Starting on [place] 07/21/22 at 1137, Until [place] 07/21/22 at 1541, Routine, Tachysysto le with NRFHT sodium No 30mL 30 mL, Univers citrate-cit 07-21 0525 Oral, ity of [place] acid 16:32: 18:32 [...] 19 Medical (-1 Branch ORAL) Nitrofurant Yes [id number] 100mg Take 1 Univers oin&Nit. 5-23 capsule by ity o f Macrocryst 00:00: mouth in [place] 100 mg 00 the Medical capsule morning Branch and 1 capsule in the evening. Nitrofurant 0 Yes [id number] 100mg Take 1 Univers oin&Nit. 5-23 capsule by ity o f Macrocryst 00:00: mouth in [place] 100 mg 00 the Medical capsule morning Branch and 1 capsule in the evening. Nitrofurant 0 Yes [id number] 100mg Take 1 Univers oin&Nit. 5-23 capsule by ity o f Macrocryst 00:00: mouth in [place] 100 mg 00 the Medical capsule morning Branch and 1 capsule in the evening. Nitrofurant 2022- No [id number] 100mg Take 1 Univers oin&Nit. 5-23 05-28 capsule by ity of Macrocryst 00:00: 00:00 mouth in [place] 100 mg 00 :00 the Medical capsule morning Branch and 1 capsule in the evening. Yes Take by Univer s 25/iron 5-21 mouth. ity of fum/folic/d 12:50: [facility] 57 Medical (-1 Branch ORAL) Yes Take by Univer s 25/iron 5-21 mouth. ity of fum/folic/d 12:50: [facility] 57 Medical (-1 Branch ORAL) Yes Take by Univer s 25/iron 5-15 mouth. ity of fum/folic/d 03:19: [facility] 16 Medical (-1 Branch ORAL) Yes Take by Univer s 25/iron 5-15 mouth. ity of fum/folic/d 03:19: [facility] 16 Medical (-1 Branch ORAL) Yes Take by Univer s 25/iron 5-15 mouth. ity of fum/folic/d 03:19: [facility] 16 Medical (-1 Branch ORAL) terbutaline 2022- [...] 25/iron 5-10 mouth. ity of fum/folic/d 05:26: [facility] 51 Medical (-1 Branch ORAL) Yes Take by Univer s 25/iron 5-10 mouth. ity of fum/folic/d 05:26: [facility] 51 Medical (-1 Branch ORAL) Yes Take by Univer s 25/iron 5-10 mouth. ity of fum/folic/d 05:26: [facility] 51 Medical (-1 Branch ORAL) metroNIDAZO 2022-0 2022- No [id number] 500mg Take 1 Univers LE 500 mg 2-16 -24 tablet by ity of tablet 00:00: 05:59 mouth in [place] 00 :00 the Medical morning Branch and 1 tablet in the evening. Do all this for 7 days. metroNIDAZO 2023-0 2023- No [id number] 500mg Take 1 Univers LE 500 mg 2-16 -24 tablet by ity of tablet 00:00: 05:59 mouth in [place] 00 :00 the Medical morning Branch and 1 tablet in the evening. Do all this for 7 days. metroNIDAZO 2023-0 2023- No [id number] 500mg Take 1 Univers LE 500 mg 216 -24 tablet by ity of tablet 00:00: 05:59 mouth in [place] 00 :00 the Medical morning Branch and 1 tablet in the evening. Do all this for 7 days. metroNIDAZO 2023-0 2023- No [id number] 500mg Take 1 Univers LE 500 mg 2-24 tablet by ity of tablet 00:00: 05:59 mouth in [place] 00 :00 the Medical morning Branch and 1 tablet in the evening. Do all this for 7 days. metroNIDAZO 2023-0 2023- No [id number] 500mg Take 1 Univers LE 500 mg 04-14-24 tablet by ity of tablet 00:00: 05:59 mouth in [place] 00 :00 the [facility] morning Branch and 1 tablet in the evening. Do all this for 7 days. hydroxyprog 2023-0 3- No [id number] 275mg Univers esterone(PF 03-31 ity of ) (KATHLEEN 06:00: 04:59 [place] AUTO-INJECT 00 :00 Medical OR) 275 Branch mg/1.1 mL injection 275 mg hydroxyprog 2023-0 2023- No [id number] 275mg Univers esterone(PF 03-31 ity of ) (KATHLEEN 06:00: 04:59 [place] AUTO-INJECT 00 :00 Medical OR) 275 Branch mg/1.1 mL injection 275 mg hydroxyprog 2023-0 2023- No [id number] 275mg 275 mg, Univers esterone(PF 03-31 Subcutaneo i ty of ) (KATHLEEN 06:00: 04:59 us, [place] AUTO-INJECT 00 :00 QWEEKLY, [facility] OR) 275 16 doses, Branch mg/1.1 mL First dose injection on [place] 275 mg 03/31/22 at 0000, Last dose on [place] 07/14/22 at 0000, Routine hydroxyprog 2023-0 2023- No [id number] 275mg Univers esterone(PF 03-31 ity of ) (KATHLEEN 06:00: 04:59 [place] AUTO-INJECT 00 :00 Medical OR) 275 Branch mg/1.1 mL injection 275 mg hydroxyprog 2023-0 2023- No [id number] 275mg 275 mg, Univers esterone(PF 03-31 Subcutaneo i ty of ) (KATHLEEN 06:00: 04:59 , [place] AUTO-INJECT 00 :00 QWEEKLY, [facility] OR) 275 16 doses, Branch mg/1.1 mL First dose injection on Alissa 275 mg 03/31/22 at 0000, Last dose on Alissa 07/14/22 at 0000, Routine hydroxyprog 2023-0 2023- No [id number] 275mg [facility](PF 03-31 ity of ) (KATHLEEN 06:00: 04:59 [place] AUTO-INJECT 00 :00 Medical OR) 275 Branch mg/1.1 mL injection 275 mg hydroxyprog 2023-0 2023- No [id number] 275mg [facility] ester[facility](PF 03-31 ity of ) (KATHLEEN 06:00: 04:59 [place] AUTO-INJECT 00 :00 Medical OR) 275 Branch mg/1.1 mL injection 275 mg hydroxyprog 2023-0 2023- No [id number] 275mg [facility] ester[facility](PF 03-31 ity of ) (KATHLEEN 06:00: 04:59 [place] AUTO-INJECT 00 :00 Medical OR) 275 Branch mg/1.1 mL injection 275 mg hydroxyprog 2023-0 2023- No [id number] 275mg [facility] ester[facility](PF 03-3125 ity of ) (KATHLEEN 06:00: 04:59 [place] AUTO-INJECT 00 :00 Medical OR) 275 Branch mg/1.1 mL injection 275 mg hydroxyprog 2023-0 2023- No [id number] 275mg [facility] ester[facility](PF 2-02 05-25 ity of ) (KATHLEEN 06:00: 04:59 [place] AUTO-INJECT 00 :00 Medical OR) 275 Branch mg/1.1 mL injection 275 mg hydroxyprog 2023-0 2023- No [id number] 275mg 275 mg, [facility] ester[facility](PF 03-31 Subcutaneo i ty of ) (KATHLEEN 06:00: 04:59 us, [place] AUTO-INJECT 00 :00 QWEEKLY, Medi lottie OR) 275 16 doses, Branch mg/1.1 mL First dose injection on Alissa 275 mg 03/31/22 at 0000, Last dose on Alissa 07/14/22 at 0000, Routine hydroxyprog 2023-0 2023- No [id number] 275mg [facility](PF 03-31 ity of ) (KATHLEEN 06:00: 04:59 [place] AUTO-INJECT 00 :00 Medical OR) 275 Branch mg/1.1 mL injection 275 mg hydroxyprog 2023-0 2023- No [id number] 275mg [facility] ester[facility](PF 03-31 ity of ) (KATHLEEN 06:00: 04:59 [place] AUTO-INJECT 00 :00 Medical OR) 275 Branch mg/1.1 mL injection 275 mg hydroxyprog 2023-0 2023- No [id number] 275mg [facility] ester[facility](PF 03-31 ity of ) (KATHLEEN 06:00: 04:59 [place] AUTO-INJECT 00 :00 Medical OR) 275 Branch mg/1.1 mL injection 275 mg hydroxyprog 2023-0 2023- No [id number] 275mg 275 mg, [facility] ester[facility](PF 03-31 Subcutaneo i ty of ) (KATHLEEN 06:00: 04:59 us, [place] AUTO-INJECT 00 :00 QWEEKLY, [facility] lottie OR) 275 16 doses, Branch mg/1.1 mL First dose injection on Alissa 275 mg 03/31/22 at 0000, Last dose on Alissa 07/14/22 at 0000, Routine hydroxyprog 2023-0 2023- No [id number] 275mg [facility](PF 03-31 ity of ) (KATHLEEN 06:00: 04:59 [place] AUTO-INJECT 00 :00 Medical OR) 275 Branch mg/1.1 mL injection 275 mg hydroxyprog 2023-0 2023- No [id number] 275mg 275 mg, [facility] ester[facility](PF 03-31 Subcutaneo i ty of ) (KATHLEEN 06:00: 04:59 us, [place] AUTO-INJECT 00 :00 QWEEKLY, [facility] OR) 275 16 doses, Branch mg/1.1 mL First dose injection on Alissa 275 mg 03/31/22 at 0000, Last dose on Alissa 07/14/22 at 0000, Routine hydroxyprog 2023-0 2023- No [id number] 275mg [facility](PF 03-31 ity of ) (KATHLEEN 06:00: 04:59 [place] AUTO-INJECT 00 :00 Medical OR) 275 Branch mg/1.1 mL injection 275 mg hydroxyprog 2023-0 2023- No [id number] 275mg 275 mg, [facility] ester[facility](PF 03-31 Subcutaneo i ty of ) (KATHLEEN 06:00: 04:59 us, [place] AUTO-INJECT 00 :00 QWEEKLY, [facility] OR) 275 16 doses, Branch mg/1.1 mL First dose injection on Alissa 275 mg 03/31/22 at 0000, Last dose on Alissa 07/14/22 at 0000, Routine hydroxyprog 2023-0 2023- No [id number] 275mg [facility](PF 03-31 ity of ) (KATHLEEN 06:00: 04:59 [place] AUTO-INJECT 00 :00 Medical OR) 275 Branch mg/1.1 mL injection 275 mg hydroxyprog 2023-0 2023- No [id number] 275mg 275 mg, [facility] ester[facility](PF 03-31 Subcutaneo i ty of ) (KATHLEEN 06:00: 04:59 us, [place] AUTO-INJECT 00 :00 QWEEKLY, [facility] OR) 275 16 doses, Branch mg/1.1 mL First dose injection on Alissa 275 mg 03/31/22 at 0000, Last dose on Alissa 07/14/22 at 0000, Routine hydroxyprog 2023-0 2023- No [id number] 275mg [facility](PF 03-31 ity of ) (KATHLEEN 06:00: 04:59 [place] AUTO-INJECT 00 :00 Medical OR) 275 Branch mg/1.1 mL injection 275 mg hydroxyprog 2023-0 2023- No [id number] 275mg [facility] ester[facility](PF 03-31 ity of ) (KATHLEEN 06:00: 04:59 [place] AUTO-INJECT 00 :00 Medical OR) 275 Branch mg/1.1 mL injection 275 mg hydroxyprog 2023-0 2023- No [id number] 275mg 275 mg, [facility] ester[facility](PF 03-31 Subcutaneo i ty of ) (KATHLEEN 06:00: 04:59 us, [place] AUTO-INJECT 00 :00 QWEEKLY, [facility] OR) 275 16 doses, Branch mg/1.1 mL First dose injection on Alissa 275 mg 03/31/22 at 0000, Last dose on [place] 07/14/22 at 0000, Routine hydroxyprog 2023-0 2023- No [id number] 275mg [facility](PF 03-31 ity of ) (KATHLEEN 06:00: 04:59 [place] AUTO-INJECT 00 :00 Medical OR) 275 Branch mg/1.1 mL injection 275 mg hydroxyprog 2023-0 2023- No [id number] 275mg 275 mg, [facility] ester[facility](PF 03-31 Subcutaneo i ty of ) (KATHLEEN 06:00: 04:59 us, [place] AUTO-INJECT 00 :00 QWEEKLY, [facility] OR) 275 16 doses, Branch mg/1.1 mL First dose injection on Alissa 275 mg 03/31/22 at 0000, Last dose on Alissa 07/14/22 at 0000, Routine hydroxyprog 2023-0 2023- No [id number] 275mg [facility](PF 03-31 ity of ) (KATHLEEN 06:00: 04:59 [place] AUTO-INJECT 00 :00 Medical OR) 275 Branch mg/1.1 mL injection 275 mg hydroxyprog 2023-0 2023- No [id number] 275mg 275 mg, [facility] ester[facility](PF 03-31 Subcutaneo i ty of ) (KATHLEEN 06:00: 04:59 us, [place] AUTO-INJECT 00 :00 QWEEKLY, [facility] OR) 275 16 doses, Branch mg/1.1 mL First dose injection on Alissa 275 mg 03/31/22 at 0000, Last dose on Alissa 07/14/22 at 0000, Routine hydroxyprog 2023-0 2023- No [id number] 275mg [facility](PF 03-31 ity of ) (KATHLEEN 06:00: 04:59 [place] AUTO-INJECT 00 :00 Medical OR) 275 Branch mg/1.1 mL injection 275 mg hydroxyprog 2023-0 2023- No [id number] 275mg 275 mg, [facility] ester[facility](PF 03-31 Subcutaneo i ty of ) (KATHLEEN 06:00: 04:59 us, [place] AUTO-INJECT 00 :00 QWEEKLY, [facility] OR) 275 16 doses, Branch mg/1.1 mL First dose injection on Alissa 275 mg 03/31/22 at 0000, Last dose on Alissa 07/14/22 at 0000, Routine hydroxyprog 2023-0 2023- No [id number] 275mg [facility](PF 03-31 ity of ) (KATHLEEN 06:00: 04:59 [place] AUTO-INJECT 00 :00 Medical OR) 275 Branch mg/1.1 mL injection 275 mg hydroxyprog 2023-0 2023- No [id number] 275mg 275 mg, [facility] ester[facility](PF 03-31 Subcutaneo i ty of ) (KATHLEEN 06:00: 04:59 us, [place] AUTO-INJECT 00 :00 QWEEKLY, [facility] OR) 275 16 doses, Branch mg/1.1 mL First dose injection on Alissa 275 mg 03/31/22 at 0000, Last dose on Al[place] 07/14/22 at 0000, Routine hydroxyprog 2023-0 2023- No [id number] 275mg [facility](PF 03-31 ity of ) (KATHLEEN 06:00: 04:59 [place] AUTO-INJECT 00 :00 Medical OR) 275 Branch mg/1.1 mL injection 275 mg hydroxyprog 2023-0 2023- No [id number] 275mg 275 mg, [facility] ester[facility](PF 03-31 Subcutaneo i ty of ) (KATHLEEN 06:00: 04:59 us, [place] AUTO-INJECT 00 :00 QWEEKLY, [facility] OR) 275 16 doses, Branch mg/1.1 mL First dose injection on Alissa 275 mg 03/31/22 at 0000, Last dose on [place] 07/14/22 at 0000, Routine hydroxyprog 2023-0 2023- No [id number] 275mg [facility](PF 03-31 ity of ) (KATHLEEN 06:00: 04:59 [place] AUTO-INJECT 00 :00 Medical OR) 275 Branch mg/1.1 mL injection 275 mg hydroxyprog 2023-0 2023- No [id number] 275mg [facility](PF 03-31 ity of ) (KATHLEEN 06:00: 04:59 [place] AUTO-INJECT 00 :00 Medical OR) 275 Branch mg/1.1 mL injection 275 mg hydroxyprog 2023-0 2023- No [id number] 275mg [facility](PF 03-31 ity of ) (KATHLEEN 06:00: :59 [place] AUTO-INJECT 00 :00 Medical OR) 275 Branch mg/1.1 mL injection 275 mg hydroxyprog 2023-0 2023- No [id number] 275mg [facility](PF 03-31 ity of ) (KATHLEEN 06:: :59 [place] AUTO-INJECT 00 :00 Medical OR) 275 Branch mg/1.1 mL injection 275 mg hydroxyprog 2023-0 2023- No [id number] 275mg [facility](PF 03-31 ity of ) (KATHLEEN 06:: :59 [place] AUTO-INJECT 00 :00 Medical OR) 275 Branch mg/1.1 mL injection 275 mg hydroxyprog 2023-0 2023- No [id number] 275mg [facility](PF 03-31 ity of ) (KATHLEEN 06:: :59 [place] AUTO-INJECT 00 :00 Medical OR) 275 Branch mg/1.1 mL injection 275 mg hydroxyprog 2023-0 2023- No [id number] 275mg [facility](PF 03-31 ity of ) (KATHLEEN 06:: :59 [place] AUTO-INJECT 00 :00 Medical OR) 275 Branch mg/1.1 mL injection 275 mg hydroxyprog 2023-0 2023- No [id number] 275mg [facility](PF 03-31 ity of ) (KATHLEEN 06:00: :59 [place] AUTO-INJECT 00 :00 Medical OR) 275 Branch mg/1.1 mL injection 275 mg hydroxyprog 2023-0 2023- No [id number] 275mg [facility] ester[facility](PF 03-31 ity of ) (KATHLEEN 06:00: 04:59 [place] AUTO-INJECT 00 :00 Medical OR) 275 Branch mg/1.1 mL injection 275 mg hydroxyprog 2023-0 2023- No [id number] 275mg [facility] ester[facility](PF 03-31 ity of ) (KATHLEEN 06:00: 04:59 [place] AUTO-INJECT 00 :00 Medical OR) 275 Branch mg/1.1 mL injection 275 mg hydroxyprog 2023-0 2023- No [id number] 275mg [facility] ester[facility](PF 03-31 ity of ) (KATHLEEN 06:00: 04:59 [place] AUTO-INJECT 00 :00 Medical OR) 275 Branch mg/1.1 mL injection 275 mg hydroxyprog 2023-0 2023- No [id number] 275mg [facility] ester[facility](PF 03-24 ity of ) (KATHLEEN 16:45: 15:59 [place] AUTO-INJECT 00 :00 Medical OR) 275 Branch mg/1.1 mL injection 275 mg hydroxyprog 2023-0 2023- No [id number] 275mg 275 mg, [facility] ester[facility](PF 03-24 Subcutaneo [...] weekly. Medical injection Branch hydroxyprog 2023-0 Yes [id number] 275mg inject 1.1 [facility] ester[facility],PF 1-09 mL under ity of , 275 00:00: the skin [place] mg/1.1 mL 00 weekly. Medical injection Branch hydroxyprog 2023-0 Yes 275mg inject 1.1 [facility] ester[facility],PF 1-09 mL under ity of , 275 00:00: the skin [place] mg/1.1 mL 00 weekly. Medical injection Branch hydroxyprog 2023-0 Yes [id number] 275mg inject 1.1 [facility] ester[facility],PF 1-09 mL under ity of , 275 00:00: the skin [place] mg/1.1 mL 00 weekly. Medical injection Branch hydroxyprog 2023-0 Yes 275mg inject 1.1 [facility] ester[facility],PF 1-09 mL under ity of , 275 00:00: the skin [place] mg/1.1 mL 00 weekly. Medical injection Branch hydroxyprog 2023-0 Yes [id number] 275mg inject 1.1 [facility] ester[facility],PF 1-09 mL under ity of , 275 00:00: the skin [place] mg/1.1 mL 00 weekly. Medical injection Branch hydroxyprog 2023-0 Yes 275mg inject 1.1 [facility] ester[facility],PF 1-09 mL under ity of , 275 00:00: the skin [place] mg/1.1 mL 00 weekly. Medical injection Branch hydroxyprog 2023-0 Yes [id number] 275mg inject 1.1 [facility] ester[facility],PF 1-09 mL under ity of , 275 00:00: the skin [place] mg/1.1 mL 00 weekly. Medical injection Branch hydroxyprog 2023-0 Yes 275mg inject 1.1 [facility] ester[facility],PF 1-09 mL under ity of , 275 00:00: the skin [place] mg/1.1 mL 00 weekly. Medical injection Branch hydroxyprog 2023-0 Yes [id number] 275mg inject 1.1 [facility] ester[facility],PF 1-09 mL under ity of , 275 00:00: the skin [place] mg/1.1 mL 00 weekly. Medical injection Branch hydroxyprog 2023-0 Yes 275mg inject 1.1 [facility] ester[facility],PF 1-09 mL under ity of , 275 00:00: the skin [place] mg/1.1 mL 00 weekly. Medical injection Branch hydroxyprog 2023-0 Yes [id number] 275mg inject 1.1 [facility] ester[facility],PF 1-09 mL under ity of , 275 00:00: the skin [place] mg/1.1 mL 00 weekly. Medical injection Branch hydroxyprog 2023-0 Yes 275mg inject 1.1 [facility] ester[facility],PF 1-09 mL under ity of , 275 00:00: the skin [place] mg/1.1 mL 00 weekly. Medical injection Branch hydroxyprog 2023-0 Yes [id number] 275mg inject 1.1 [facility] ester[facility],PF 1-09 mL under ity of , 275 00:00: the skin [place] mg/1.1 mL 00 weekly. Medical injection Branch hydroxyprog 2023-0 Yes 275mg inject 1.1 [facility] ester[facility],PF 1-09 mL under ity of , 275 00:00: the skin [place] mg/1.1 mL 00 weekly. Medical injection Branch hydroxyprog 2023-0 Yes [id number] 275mg inject 1.1 [facility] ester[facility],PF 1-09 mL under ity of , 275 00:00: the skin [place] mg/1.1 mL 00 weekly. Medical injection Branch hydroxyprog 2023-0 Yes 275mg inject 1.1 [facility] ester[facility],PF 1-09 mL under ity of , 275 00:00: the skin [place] mg/1.1 mL 00 weekly. Medical injection Branch hydroxyprog 2023-0 Yes [id number] 275mg inject 1.1 [facility] ester[facility],PF 1-09 mL under ity of , 275 00:00: the skin [place] mg/1.1 mL 00 weekly. Medical injection Branch hydroxyprog 2023-0 Yes 275mg inject 1.1 [facility] ester[facility],PF 1-09 mL under ity of , 275 00:00: the skin [place] mg/1.1 mL 00 weekly. Medical injection Branch hydroxyprog 2023-0 Yes [id number] 275mg inject 1.1 [facility] ester[facility],PF 1-09 mL under ity of , 275 00:00: the skin [place] mg/1.1 mL 00 weekly. Medical injection Branch hydroxyprog 2023-0 Yes 275mg inject 1.1 [facility] ester[facility],PF 1-09 mL under ity of , 275 00:00: the skin [place] mg/1.1 mL 00 weekly. Medical injection Branch hydroxyprog 2023-0 Yes [id number] 275mg inject 1.1 [facility] ester[facility],PF 1-09 mL under ity of , 275 00:00: the skin [place] mg/1.1 mL 00 weekly. Medical injection Branch hydroxyprog 2023-0 Yes 275mg inject 1.1 [facility] ester[facility],PF 1-09 mL under ity of , 275 00:00: the skin [place] mg/1.1 mL 00 weekly. Medical injection Branch hydroxyprog 2023-0 Yes [id number] 275mg inject 1.1 [facility] ester[facility],PF 1-09 mL under ity of , 275 00:00: the skin [place] mg/1.1 mL 00 weekly. Medical injection Branch hydroxyprog 2023-0 Yes 275mg inject 1.1 [facility] ester[facility],PF 1-09 mL under ity of , 275 00:00: the skin [place] mg/1.1 mL 00 weekly. Medical injection Branch hydroxyprog 2023-0 Yes [id number] 275mg inject 1.1 [facility] ester[facility],PF 1-09 mL under ity of , 275 00:00: the skin [place] mg/1.1 mL 00 weekly. Medical injection Branch hydroxyprog 2023-0 Yes 275mg inject 1.1 [facility] ester[facility],PF 1-09 mL under ity of , 275 00:00: the skin [place] mg/1.1 mL 00 weekly. Medical injection Branch hydroxyprog 2023-0 Yes [id number] 275mg inject 1.1 [facility] ester[facility],PF 1-09 mL under ity of , 275 00:00: the skin [place] mg/1.1 mL 00 weekly. Medical injection Branch hydroxyprog 2023-0 Yes 275mg inject 1.1 [facility] ester[facility],PF 1-09 mL under ity of , 275 00:00: the skin [place] mg/1.1 mL 00 weekly. Medical injection Branch hydroxyprog 2023-0 Yes [id number] 275mg inject 1.1 [facility] ester[facility],PF 1-09 mL under ity of , 275 00:00: the skin [place] mg/1.1 mL 00 weekly. Medical injection Branch hydroxyprog 2023-0 Yes 275mg inject 1.1 [facility] ester[facility],PF 1-09 mL under ity of , 275 00:00: the skin [place] mg/1.1 mL 00 weekly. Medical injection Branch hydroxyprog 2023-0 Yes [id number] 275mg inject 1.1 [facility] ester[facility],PF 1-09 mL under ity of , 275 00:00: the skin [place] mg/1.1 mL 00 weekly. Medical injection Branch hydroxyprog 2023-0 Yes 275mg inject 1.1 [facility] ester[facility],PF 1-09 mL under ity of , 275 00:00: the skin [place] mg/1.1 mL 00 weekly. Medical injection Branch hydroxyprog 2023-0 Yes [id number] 275mg inject 1.1 [facility] ester[facility],PF 1-09 mL under ity of , 275 00:00: the skin [place] mg/1.1 mL 00 weekly. Medical injection Branch hydroxyprog 2023-0 Yes 275mg inject 1.1 [facility] ester[facility],PF 1-09 mL under ity of , 275 00:00: the skin [place] mg/1.1 mL 00 weekly. Medical injection Branch hydroxyprog 2023-0 Yes [id number] 275mg inject 1.1 [facility] ester[facility],PF 1-09 mL under ity of , 275 00:00: the skin [place] mg/1.1 mL 00 weekly. Medical injection Branch hydroxyprog 2023-0 Yes 275mg inject 1.1 [facility] ester[facility],PF 1-09 mL under ity of , 275 00:00: the skin [place] mg/1.1 mL 00 weekly. Medical injection Branch hydroxyprog 2023-0 Yes [id number] 275mg inject 1.1 [facility] ester[facility],PF 1-09 mL under ity of , 275 00:00: the skin [place] mg/1.1 mL 00 weekly. Medical injection Branch hydroxyprog 2023-0 Yes 275mg inject 1.1 [facility] ester[facility],PF 1-09 mL under ity of , 275 00:00: the skin [place] mg/1.1 mL 00 weekly. Medical injection Branch hydroxyprog 2023-0 Yes [id number] 275mg inject 1.1 [facility] ester[facility],PF 1-09 mL under ity of , 275 00:00: the skin [place] mg/1.1 mL 00 weekly. Medical injection Branch hydroxyprog 2023-0 Yes 275mg inject 1.1 [facility] ester[facility],PF 1-09 mL under ity of , 275 00:00: the skin [place] mg/1.1 mL 00 weekly. Medical injection Branch hydroxyprog 2023-0 Yes [id number] 275mg inject 1.1 [facility] ester[facility],PF 1-09 mL under ity of , 275 00:00: the skin [place] mg/1.1 mL 00 weekly. Medical injection Branch hydroxyprog 2023-0 Yes 275mg inject 1.1 [facility] ester[facility],PF 1-09 mL under ity of , 275 00:00: the skin [place] mg/1.1 mL 00 weekly. Medical injection Branch hydroxyprog 2023-0 Yes [id number] 275mg inject 1.1 [facility] ester[facility],PF 1-09 mL under ity of , 275 00:00: the skin [place] mg/1.1 mL 00 weekly. Medical injection Branch hydroxyprog 2023-0 Yes 275mg inject 1.1 [facility] ester[facility],PF 1-09 mL under ity of , 275 00:00: the skin [place] mg/1.1 mL 00 weekly. Medical injection Branch hydroxyprog 2023-0 Yes [id number] 275mg inject 1.1 [facility] ester[facility],PF 1-09 mL under ity of , 275 00:00: the skin [place] mg/1.1 mL 00 weekly. Medical injection Branch hydroxyprog 2023-0 Yes 275mg inject 1.1 [facility] ester[facility],PF 1-09 mL under ity of , 275 00:00: the skin [place] mg/1.1 mL 00 weekly. Medical injection Branch hydroxyprog 2023-0 Yes [id number] 275mg inject 1.1 [facility] ester[facility],PF 1-09 mL under ity of , 275 00:00: the skin [place] mg/1.1 mL 00 weekly. Medical injection Branch hydroxyprog 2023-0 Yes 275mg inject 1.1 [facility] ester[facility],PF 1-09 mL under ity of , 275 00:00: the skin [place] mg/1.1 mL 00 weekly. Medical injection Branch hydroxyprog 2023-0 Yes [id number] 275mg inject 1.1 [facility] ester[facility],PF 1-09 mL under ity of , 275 00:00: the skin [place] mg/1.1 mL 00 weekly. Medical injection Branch hydroxyprog 2023-0 Yes 275mg inject 1.1 [facility] ester[facility],PF 1-09 mL under ity of , 275 00:00: the skin [place] mg/1.1 mL 00 weekly. Medical injection Branch hydroxyprog 2023-0 Yes [id number] 275mg inject 1.1 [facility] ester[facility],PF 1-09 mL under ity of , 275 00:00: the skin [place] mg/1.1 mL 00 weekly. Medical injection Branch hydroxyprog 2023-0 Yes 275mg inject 1.1 [facility] ester[facility],PF 1-09 mL under ity of , 275 00:00: the skin [place] mg/1.1 mL 00 weekly. Medical injection Branch hydroxyprog 2023-0 Yes [id number] 275mg inject 1.1 [facility] ester[facility],PF 1-09 mL under ity of , 275 00:00: the skin [place] mg/1.1 mL 00 weekly. Medical injection Branch hydroxyprog 2023-0 Yes 275mg inject 1.1 [facility] ester[facility],PF 1-09 mL under ity of , 275 00:00: the skin [place] mg/1.1 mL 00 weekly. Medical injection Branch hydroxyprog 2023-0 Yes [id number] 275mg inject 1.1 [facility] ester[facility],PF 1-09 mL under ity of , 275 00:00: the skin [place] mg/1.1 mL 00 weekly. Medical injection Branch hydroxyprog 2023-0 Yes 275mg inject 1.1 [facility] ester[facility],PF 1-09 mL under ity of , 275 00:00: the skin [place] mg/1.1 mL 00 weekly. Medical injection Branch hydroxyprog 2023-0 Yes [id number] 275mg inject 1.1 [facility] ester[facility],PF 1-09 mL under ity of , 275 00:00: the skin [place] mg/1.1 mL 00 weekly. Medical injection Branch hydroxyprog 2023-0 Yes 275mg inject 1.1 [facility] ester[facility],PF 1-09 mL under ity of , 275 00:00: the skin [place] mg/1.1 mL 00 weekly. Medical injection Branch hydroxyprog 2023-0 Yes [id number] 275mg inject 1.1 [facility] ester[facility],PF 1-09 mL under ity of , 275 00:00: the skin [place] mg/1.1 mL 00 weekly. Medical injection Branch hydroxyprog 2023-0 Yes 275mg inject 1.1 [facility] ester[facility],PF 1-09 mL under ity of , 275 00:00: the skin [place] mg/1.1 mL 00 weekly. Medical injection Branch hydroxyprog 2023-0 Yes [id number] 275mg inject 1.1 [facility] ester[facility],PF 1-09 mL under ity of , 275 00:00: the skin [place] mg/1.1 mL 00 weekly. Medical injection Branch hydroxyprog 2023-0 Yes 275mg inject 1.1 [facility] ester[facility],PF 1-09 mL under ity of , 275 00:00: the skin [place] mg/1.1 mL 00 weekly. Medical injection Branch hydroxyprog 2023-0 Yes [id number] 275mg inject 1.1 [facility] ester[facility],PF 1-09 mL under ity of , 275 00:00: the skin [place] mg/1.1 mL 00 weekly. Medical injection Branch hydroxyprog 2023-0 Yes 275mg inject 1.1 [facility] ester[facility],PF 1-09 mL under ity of , 275 00:00: the skin [place] mg/1.1 mL 00 weekly. Medical injection Branch hydroxyprog 2023-0 Yes [id number] 275mg inject 1.1 [facility] ester[facility],PF 1-09 mL under ity of , 275 00:00: the skin [place] mg/1.1 mL 00 weekly. Medical injection Branch hydroxyprog 2023-0 Yes 275mg inject 1.1 [facility] ester[facility],PF 1-09 mL under ity of , 275 00:00: the skin [place] mg/1.1 mL 00 weekly. Medical injection Branch hydroxyprog 2023-0 Yes [id number] 275mg inject 1.1 [facility] ester[facility],PF 1-09 mL under ity of , 275 00:00: the skin [place] mg/1.1 mL 00 weekly. Medical injection Branch hydroxyprog 2023-0 Yes 275mg inject 1.1 [facility] ester[facility],PF 1-09 mL under ity of , 275 00:00: the skin [place] mg/1.1 mL 00 weekly. Medical injection Branch hydroxyprog 2023-0 Yes [id number] 275mg inject 1.1 [facility] ester[facility],PF 1-09 mL under ity of , 275 00:00: the skin [place] mg/1.1 mL 00 weekly. Medical injection Branch hydroxyprog 2023-0 Yes 275mg inject 1.1 [facility] ester[facility],PF 1-09 mL under ity of , 275 00:00: the skin [place] mg/1.1 mL 00 weekly. Medical injection Branch hydroxyprog 2023-0 Yes [id number] 275mg inject 1.1 [facility] ester[facility],PF 1-09 mL under ity of , 275 00:00: the skin [place] mg/1.1 mL 00 weekly. Medical injection Branch hydroxyprog 2023-0 2023- No 275mg inject 1.1 [facility] ester[facility],PF 1-09 05-25 mL under ity of , 275 00:00: 00:00 the skin [place] mg/1.1 mL 00 :00 weekly. Medical injection Branch hydroxyprog 2023-0 2023- No [id number] 275mg inject 1.1 [facility] ester[facility],PF - 05-25 mL under ity of , 275 00:00: 00:00 the skin [place] mg/1.1 mL 00 :00 weekly. Medical injection Branch hydroxyprog 2022- No 275mg inject 1.1 [facility] ester[facility],PF 1- 05-25 mL under ity of , 275 00:00: 00:00 the skin [place] mg/1.1 mL 00 :00 weekly. Medical injection Branch hydroxyprog 2022- No [id number] 275mg inject 1.1 [facility] ester[facility],PF - 05-25 mL under ity of , 275 00:00: 00:00 the skin [place] mg/1.1 mL 00 :00 weekly. Medical injection Branch hydroxyprog 2021-02 Yes [id number] 250mg 1 mL by [facility] ester[facility] ity o f caproate, 00:00: lar route Jamal as ppres, 250 00 weekly. Medica l mg/mL Branch injection hydroxyprog 2021-02- No [id number] 250mg 1 mL by [facility] esterone 03-07 [...] (1 mL) Branch injection hydroxyprog 2021-02 Yes [id number] 250mg 1 mL by [email or web address] esterone 2-15 Intr[facility] ity o f 250 mg/mL 00:00: lar route [place] as injection 00 weekly. Medical Branch hydroxyprog 2021-02 Yes [id number] 250mg 1 mL by [email or web address] esterone 2-15 Intr[facility] ity o f 250 mg/mL 00:00: lar route [place] as injection 00 weekly. Medical Branch hydroxyprog 2021-02- No [id number] 250mg 1 mL by [email or web address] esterone 2-15 09 [facility] ity of 250 mg/mL 00:00: 00:00 [...] 25/iron 0-13 mouth. ity of fum/folic/d 09:26: [facility] 35 Medical (-1 Branch ORAL) 2021-02 Yes Take by [facility] 25/iron 0-13 mouth. ity of fum/folic/d 09:26: [facility] 35 Medical (-1 Branch ORAL) 2021-02 Yes Take by Univer [facility] 25/iron 0-13 mouth. ity of fum/folic/d 09:26: [facility] 35 Medical (-1 Branch ORAL) 2021-02 Yes Take by Univer [facility] 25/iron 0-13 mouth. ity of fum/folic/d 09:26: [facility] 35 Medical (-1 Branch ORAL) 2021-02 Yes Take by Univer [facility] 25/iron 0-13 mouth. ity of fum/folic/d 09:26: [facility] 35 Medical (-1 Branch ORAL) 2021-02 Yes Take by Univer [facility] 25/iron 0-13 mouth. ity of fum/folic/d 09:26: [facility] 35 Medical (-1 Branch ORAL) 2021-02 Yes Take by Univer s 25/iron 0-13 mouth. ity of fum/folic/d 09:26: [facility] 35 Medical (-1 Branch ORAL) 2021-02 Yes Take by Univer [facility] 25/iron 0-13 mouth. ity of fum/folic/d 09:26: [facility] 35 Medical (-1 Branch ORAL) 2021-02 Yes Take by Univer s 25/iron 0-13 mouth. ity of fum/folic/d 09:26: [facility] 35 Medical (-1 Branch ORAL) 2021-02 Yes Take by Univer s 25/iron 0-13 mouth. ity of fum/folic/d 09:26: [facility] 35 Medical (-1 Branch ORAL) 2021-02 Yes Take by Univer s 25/iron 0-13 mouth. ity of fum/folic/d 09:26: [facility] 35 Medical (-1 Branch ORAL) 2021-02 Yes Take by Univer s 25/iron 0-13 mouth. ity of fum/folic/d 09:26: [facility] 35 Medical (-1 Branch ORAL) 2021-02 Yes Take by Univer s 25/iron 0-13 mouth. ity of fum/folic/d 09:26: [facility] 35 Medical (-1 Branch ORAL) 2021-02 Yes Take by Univer s 25/iron 0-13 mouth. ity of fum/folic/d 09:26: [facility] 35 Medical (-1 Branch ORAL) 2021-02 Yes Take by Univer s 25/iron 0-13 mouth. ity of fum/folic/d 09:26: [facility] 35 Medical (-1 Branch ORAL) 2021-02 Yes Take by Univer s 25/iron 0-13 mouth. ity of fum/folic/d 09:26: [place] [id number] Medical (-1 Branch ORAL) 2021-02 Yes Take by Univer s 25/iron 0-13 mouth. ity of fum/folic/d 09:26: [facility] 35 Medical (-1 Branch ORAL) 2021-02 Yes Take by Univer s 25/iron 0-13 mouth. ity of fum/folic/d 09:26: [facility] 35 Medical (-1 Branch ORAL) 2021-02 Yes Take by Univer s 25/iron 0-13 mouth. ity of fum/folic/d 09:26: [facility] 35 Medical (-1 Branch ORAL) 2021-02 Yes Take by Univer s 25/iron 0-13 mouth. ity of fum/folic/d 09:26: [facility] 35 Medical (-1 Branch ORAL) 2021-02 Yes Take by Univer s 25/iron 0-13 mouth. ity of fum/folic/d 09:26: [facility] 35 Medical (-1 Branch ORAL) 2021-02 Yes Take by Univer s 25/iron 0-13 mouth. ity of fum/folic/d 09:26: [facility] 35 Medical (-1 Branch ORAL) 2021-02 Yes Take by Univer s 25/iron 0-13 mouth. ity of fum/folic/d 09:26: [facility] 35 Medical (-1 Branch ORAL) 2021-02 Yes Take by Univer s 25/iron 0-13 mouth. ity of fum/folic/d 09:26: [place] [id number] Medical (-1 Branch ORAL) 2021-02 Yes Take by Univer s 25/iron 0-13 mouth. ity of fum/folic/d 09:26: [facility] 35 Medical (-1 Branch ORAL) 2021-02 Yes Take by Univer s 25/iron 0-13 mouth. ity of fum/folic/d 09:26: [place] [id number] Medical (-1 Branch ORAL) 2021-02 Yes Take by Univer s 25/iron 0-13 mouth. ity of fum/folic/d 09:26: [place] [id number] Medical (-1 Branch ORAL) 2021-02 Yes Take by Univer s 25/iron 0-13 mouth. ity of fum/folic/d 09:26: [place] [id number] Medical (-1 Branch ORAL) 2021-02 Yes Take by Univer s 25/iron 0-13 mouth. ity of fum/folic/d 09:26: [place] [id number] Medical (-1 Branch ORAL) 2021-02 Yes Take by Univer s 25/iron 0-13 mouth. ity of fum/folic/d 09:26: [place] [id number] Medical (-1 Branch ORAL) 2021-02 Yes Take by Univer s 25/iron 0-13 mouth. ity of fum/folic/d 09:26: [facility] 35 Medical (-1 Branch ORAL) 2021-02 Yes Take by Univer s 25/iron 0-13 mouth. ity of fum/folic/d 09:26: [facility] 35 Medical (-1 Branch ORAL) 2021-02 Yes Take by Univer s 25/iron 0-13 mouth. ity of fum/folic/d 09:26: [facility] 35 Medical (-1 Branch ORAL) 2021-02 Yes [...] 0-13 mouth. ity of fum/folic/d 09:26: [facility] Medical (-1 Branch ORAL) 2021-02 Yes Take by Univer s 25/iron 0-13 mouth. ity of fum/folic/d 09:26: [facility] Medical (-1 Branch ORAL) 2021-02 Yes Take by Univer s 25/iron 0-13 mouth. ity of fum/folic/d 09:26: [facility] Medical (-1 Branch ORAL) 2021-02 Yes Take by Univer s 25/iron 0-13 mouth. ity of fum/folic/d 09:26: [facility] Medical (-1 Branch ORAL) PROAIR HFA [...] mcg/actuati 00:00: [place] on inhaler Medical Branch [facility] HFA Yes Univers 90 8-30 ity of mcg/actuati 00:00: [place] on inhaler Medical Branch PROAIR HFA Yes Univers 90 8-30 ity of mcg/actuati 00:00: [place] on inhaler Medical Branch PROAIR HFA Yes Univers 90 8-30 ity of mcg/actuati 00:00: [place] on inhaler Medical Branch PROAIR HFA Yes Univers 90 8-30 ity of mcg/actuati 00:00: [place] on inhaler Medical Branch [facility] HFA Yes Univers 90 8-30 ity of mcg/actuati 00:00: [place] on inhaler Medical Branch PROAIR HFA Yes Univers 90 8-30 ity of mcg/actuati 00:00: [place] on inhaler 00 Medical Branch [facility] HFA Yes Univers 90 8-30 ity of mcg/actuati 00:00: [place] on inhaler Medical Branch PROAIR HFA Yes Univers 90 8-30 ity of mcg/actuati 00:00: [place] on inhaler 00 Medical Branch [facility] HFA Yes Univers 90 8-30 ity of mcg/actuati 00:00: [place] on inhaler 00 Medical Branch PROAIR HFA Yes Univers 90 8-30 ity of mcg/actuati 00:00: [place] on inhaler 00 Medical [place] PROAIR HFA 0 3- No Univer s 90 8-30 05-27 ity of mcg/actuati 00:00: 00:00 [place] on inhaler 00 :00 Medical Branch norgestimat 0 Yes [id number] 1{tbl} Take 1 Univers e-ethinyl 8-16 tablet by ity o f estradioL 00:[place]TRI-SPRINT 00 the Medical ) morning. Branch 0.18/0.215/ 0.25 mg-35 mcg (28) tablet norgestimat 2021- No [id number] 1{tbl} Take 1 Univers e-ethinyl 8-16 10-13 tablet by ity of estradioL 00:00: 00:00 mouth in [place] (TRI-SPRINT 00 :00 the Medical [facility]) morning. Branch 0.18/0.215/ 0.25 mg-35 mcg (28) tablet norgestimat 2020-02 Yes [id number] 1{tbl} Take 1 Univers e-ethinyl 1-22 tablet by ity o f estradioL 00:00: mouth [place] (ORTHO 00 daily. [facility] 0.18/0.215/ 0.25 mg-35 mcg (28) tablet norgestimat 2020-02- No [id number] 1{tbl} Take 1 Univers e-ethinyl 1-22 10-13 tablet by ity of estradioL 00:00: 00:00 mouth [place] (ORTHO 00 :00 daily. [facility] 0.18/0.215/ 0.25 mg-35 mcg (28) tablet norgestimat 2020-02- No [id number] 1{tbl} Take 1 Univers e-ethinyl 1-22 10-13 tablet by ity of estradioL 00:00: 00:00 mouth [place] (ORTHO 00 :[address] [facility] 0.18/0.215/ 0.25 mg-35 mcg (28) tablet Immunizations Ordered Immunization Filled Date Status Comments Sour ce Name Immunization Name [facility] 2022-05-26 Completed University of 00:00:00 [facility] TDAP 2022-05-26 Completed University of 00:00:00 [facility] TDAP 2022-05-26 Completed University of 00:00:00 [facility] TDAP 2022-05-26 Completed University of 00:00:00 [facility] TDAP 2022-05-26 Completed University of 00:00:00 [facility] TDAP 2022-05-26 Completed University of 00:00:00 [facility] TDAP 2022-05-26 Completed University of 00:00:00 [facility] TDAP 2022-05-26 Completed University of 00:00:00 [place] [facility] TDAP 2022-05-26 Completed University of 00:00:00 [place] [facility] TDAP 2022-05-26 Completed University of 00:00:00 [place] [facility] TDAP 2022-05-26 Completed University of 00:00:00 [facility] TDAP 2022-05-26 Completed University of 00:00:00 [facility] TDAP 2022-05-26 Completed University of 00:00:00 [place] [facility] TDAP 2022-05-26 Completed University of 00:00:00 [place] [facility] TDAP 2022-05-26 Completed University of 00:00:00 [facility] TDAP 2022-05-26 Completed University of 00:00:00 [place] [facility] TDAP 2022-05-26 Completed University of 00:00:00 [facility] TDAP 2022-05-26 Completed University of 00:00:00 [facility] TDAP 2022-05-26 Completed University of 00:00:00 [facility] TDAP 2022-05-26 Completed University of 00:00:00 [facility] TDAP 2022-05-26 Completed University of 00:00:00 [facility] TDAP 2022-05-26 Completed University of 00:00:00 [facility] TDAP 2022-05-26 Completed University of 00:00:00 [facility] TDAP 2022-05-26 Completed University of 00:00:00 [facility] TDAP 2022-05-26 Completed University of 00:00:00 [facility] TDAP 2022-05-26 Completed University of 00:00:00 [facility] TDAP 2020-06-09 Completed University of 00:00:00 [facility] TDAP 2020-06-09 Completed University of 00:00:00 [place] [facility] TDAP 2020-06-09 Completed University of 00:00:00 [place] [facility] TDAP 2020-06-09 Completed University of 00:00:00 [place] [facility] TDAP 2020-06-09 Completed University of 00:00:00 [facility] TDAP 2020-06-09 Completed University of 00:00:00 [facility] TDAP 2020-06-09 Completed University of 00:00:00 [facility] TDAP 2020-06-09 Completed University of 00:00:00 [place] [facility] TDAP 2020-06-09 Completed University of 00:00:00 [place] [facility] TDAP 2020-06-09 Completed University of 00:00:00 [place] [facility] TDAP 2020-06-09 Completed University of 00:00:00 [place] [facility] TDAP 2020-06-09 Completed University of 00:00:00 [place] [facility] TDAP 2020-06-09 Completed University of 00:00:00 [place] [facility] TDAP 2020-06-09 Completed University of 00:00:00 [place] [facility] TDAP 2020-06-09 Completed University of 00:00:00 [place] [facility] TDAP 2020-06-09 Completed University of 00:00:00 [place] [facility] TDAP 2020-06-09 Completed University of 00:00:00 [place] [facility] TDAP 2020-06-09 Completed University of 00:00:00 [place] [facility] TDAP 2020-06-09 Completed University of 00:00:00 [place] [facility] TDAP 2020-06-09 Completed University of 00:00:00 [place] [facility] TDAP 2020-06-09 Completed University of 00:00:00 [place] [facility] TDAP 2020-06-09 Completed University of 00:00:00 [place] [facility] TDAP 2020-06-09 Completed University of 00:00:00 [place] [facility] TDAP 2020-06-09 Completed University of 00:00:00 [place] [facility] TDAP 2020-06-09 Completed University of 00:00:00 [facility] TDAP 2020-06-09 Completed University of 00:00:00 [place] [facility] TDAP 2020-06-09 Completed University of 00:00:00 [place] [facility] TDAP 2020-06-09 Completed University of 00:00:00 [place] [facility] TDAP 2020-06-09 Completed University of 00:00:00 [place] [facility] TDAP 2020-06-09 Completed University of 00:00:00 [place] [facility] TDAP 2020-06-09 Completed University of 00:00:00 [place] [facility] TDAP 2020-06-09 Completed University of 00:00:00 [place] [facility] TDAP 2020-06-09 Completed University of 00:00:00 [place] [facility] TDAP 2020-06-09 Completed University of 00:00:00 [place] [facility] TDAP 2020-06-09 Completed University of 00:00:00 [place] [facility] TDAP 2020-06-09 Completed University of 00:00:00 [place] [facility] TDAP 2020-06-09 Completed University of 00:00:00 [place] [facility] TDAP 2020-06-09 Completed University of 00:00:00 [place] [facility] TDAP 2020-06-09 Completed University of 00:00:00 [place] [facility] TDAP 2020-06-09 Completed University of 00:00:00 [place] [facility] TDAP 2020-06-09 Completed University of 00:00:00 [place] [facility] TDAP 2020-06-09 Completed University of 00:00:00 [place] [facility] TDAP 2020-06-09 Completed University of 00:00:00 [place] [facility] TDAP 2020-06-09 Completed University of 00:00:00 [place] [facility] TDAP 2020-06-09 Completed University of 00:00:00 [place] [facility] TDAP 2020-06-09 Completed University of 00:00:00 [place] [facility] TDAP 2020-06-09 Completed University of 00:00:00 [place] [facility] TDAP 2020-06-09 Completed University of 00:00:00 [place] [facility] TDAP 2020-06-09 Completed University of 00:00:00 [place] [facility] TDAP 2020-06-09 Completed University of 00:00:00 [place] [facility] TDAP 2020-06-09 Completed University of 00:00:00 [place] [facility] TDAP 2020-06-09 Completed University of 00:00:00 [place] [facility] TDAP 2020-06-09 Completed University of 00:00:00 [place] [facility] TDAP 2020-06-09 Completed University of 00:00:00 [place] [facility] TDAP 2020-06-09 Completed University of 00:00:00 [place] [facility] TDAP 2020-06-09 Completed University of 00:00:00 [place] [facility] TDAP 2020-06-09 Completed University of 00:00:00 [place] [facility] TDAP 2020-06-09 Completed University of 00:00:00 [place] [facility] TDAP 2020-06-09 Completed University of 00:00:00 [place] [facility] TDAP 2020-06-09 Completed University of 00:00:00 [facility] TDAP 2020-06-09 Completed University of 00:00:00 [place] [facility] [place] TDAP 2020-06-09 Completed University of 00:00:00 [facility] TDAP 2020-06-09 Completed University of 00:00:00 [facility] Influenza Virus 2020-01-21 Completed Universit y [...] y of Vaccine Quad .5 mL 00:00:00 [place] [facility] 6+ MO Branch Influenza Virus 2020-01-21 Completed Universit y of Vaccine Quad .5 mL 00:00:00 [place] [facility] IM 6+ MO Branch Influenza Virus 2020-01-21 Completed Universit y of Vaccine Quad .5 mL 00:00:00 [place] [facility] 6+ MO Branch Meningococcal 2018-10-18 Completed University of Vaccine 00:00:00 [facility] TDAP 2018-10-18 Completed University of 00:00:00 [facility] Meningococcal B, OMV 2018-10-18 Completed Univ ersity of 00:00:00 [facility] Meningococcal 2018-10-18 Completed University of Vaccine 00:00:00 [facility] TDAP 2018-10-18 Completed University of 00:00:00 [facility] Meningococcal B, OMV 2018-10-18 Completed Univ ersity of 00:00:00 [facility] Meningococcal 2018-10-18 Completed University of Vaccine 00:00:00 [facility] TDAP 2018-10-18 Completed University of 00:00:00 [facility] Meningococcal B, OMV 2018-10-18 Completed Univ ersity of 00:00:00 [facility] Meningococcal 2018-10-18 Completed University of Vaccine 00:00:00 [facility] TDAP 2018-10-18 Completed University of 00:00:00 [facility] Meningococcal B, OMV 2018-10-18 Completed Univ ersity of 00:00:00 [facility] Meningococcal 2018-10-18 Completed University of Vaccine 00:00:00 [facility] TDAP 2018-10-18 Completed University of 00:00:00 [facility] Meningococcal B, OMV 2018-10-18 Completed Univ ersity of 00:00:00 [facility] Meningococcal 2018-10-18 Completed University of Vaccine 00:00:00 [facility] TDAP 2018-10-18 Completed University of 00:00:00 [facility] Meningococcal B, OMV 2018-10-18 Completed Univ ersity of 00:00:00 [facility] Meningococcal 2018-10-18 Completed University of Vaccine 00:00:00 [facility] TDAP 2018-10-18 Completed University of 00:00:00 [facility] Meningococcal B, OMV 2018-10-18 Completed Univ ersity of 00:00:00 [facility] Meningococcal 2018-10-18 Completed University of Vaccine 00:00:00 [facility] TDAP 2018-10-18 Completed University of 00:00:00 [facility] Meningococcal B, OMV 2018-10-18 Completed Univ ersity of 00:00:00 [facility] Meningococcal 2018-10-18 Completed University of Vaccine 00:00:00 [facility] TDAP 2018-10-18 Completed University of 00:00:00 [facility] Meningococcal B, OMV 2018-10-18 Completed Univ ersity of 00:00:00 [facility] Meningococcal 2018-10-18 Completed University of Vaccine 00:00:00 [facility] TDAP 2018-10-18 Completed University of 00:00:00 [facility] Meningococcal B, OMV 2018-10-18 Completed Univ ersity of 00:00:00 [facility] Meningococcal 2018-10-18 Completed University of Vaccine 00:00:00 [facility] TDAP 2018-10-18 Completed University of 00:00:00 [facility] Meningococcal B, OMV 2018-10-18 Completed Univ ersity of 00:00:00 [place] [facility] Meningococcal 2018-10-18 Completed University of Vaccine 00:00:00 [facility] TDAP 2018-10-18 Completed University of 00:00:00 [facility] Meningococcal B, OMV 2018-10-18 Completed Univ ersity of 00:00:00 [facility] Meningococcal 2018-10-18 Completed University of Vaccine 00:00:00 [facility] TDAP 2018-10-18 Completed University of 00:00:00 [facility] Meningococcal B, OMV 2018-10-18 Completed Univ ersity of 00:00:00 [facility] Meningococcal 2018-10-18 Completed University of Vaccine 00:00:00 [facility] TDAP 2018-10-18 Completed University of 00:00:00 [facility] Meningococcal B, OMV 2018-10-18 Completed Univ ersity of 00:00:00 [facility] Meningococcal 2018-10-18 Completed University of Vaccine 00:00:00 [facility] TDAP 2018-10-18 Completed University of 00:00:00 [facility] Meningococcal B, OMV 2018-10-18 Completed Univ ersity of 00:00:00 [facility] Meningococcal 2018-10-18 Completed University of Vaccine 00:00:00 [facility] TDAP 2018-10-18 Completed University of 00:00:00 [facility] Meningococcal B, OMV 2018-10-18 Completed Univ ersity of 00:00:00 [facility] Meningococcal 2018-10-18 Completed University of Vaccine 00:00:00 [facility] TDAP 2018-10-18 Completed University of 00:00:00 [facility] Meningococcal B, OMV 2018-10-18 Completed Univ ersity of 00:00:00 [facility] Meningococcal 2018-10-18 Completed University of Vaccine 00:00:00 [facility] TDAP 2018-10-18 Completed University of 00:00:00 [facility] Meningococcal B, OMV 2018-10-18 Completed Univ ersity of 00:00:00 [facility] Meningococcal 2018-10-18 Completed University of Vaccine 00:00:00 [facility] TDAP 2018-10-18 Completed University of 00:00:00 [facility] Meningococcal B, OMV 2018-10-18 Completed Univ ersity of 00:00:00 [place] [facility] Meningococcal 2018-10-18 Completed University of Vaccine 00:00:00 [facility] TDAP 2018-10-18 Completed University of 00:00:00 [facility] Meningococcal B, OMV 2018-10-18 Completed Univ ersity of 00:00:00 [facility] Meningococcal 2018-10-18 Completed University of Vaccine 00:00:00 [facility] TDAP 2018-10-18 Completed University of 00:00:00 [facility] Meningococcal B, OMV 2018-10-18 Completed Univ ersity of 00:00:00 [facility] Meningococcal 2018-10-18 Completed University of Vaccine 00:00:00 [facility] TDAP 2018-10-18 Completed University of 00:00:00 [facility] Meningococcal B, OMV 2018-10-18 Completed Univ ersity of 00:00:00 [facility] Meningococcal 2018-10-18 Completed University of Vaccine 00:00:00 [facility] TDAP 2018-10-18 Completed University of 00:00:00 [facility] Meningococcal B, OMV 2018-10-18 Completed Univ ersity of 00:00:00 [facility] Meningococcal 2018-10-18 Completed University of Vaccine 00:00:00 [facility] TDAP 2018-10-18 Completed University of 00:00:00 [facility] Meningococcal B, OMV 2018-10-18 Completed Univ ersity of 00:00:00 [facility] Meningococcal 2018-10-18 Completed University of Vaccine 00:00:00 [facility] TDAP 2018-10-18 Completed University of 00:00:00 [facility] Meningococcal B, OMV 2018-10-18 Completed Univ ersity of 00:00:00 [facility] Meningococcal 2018-10-18 Completed University of Vaccine 00:00:00 [facility] TDAP 2018-10-18 Completed University of 00:00:00 [facility] Meningococcal B, OMV 2018-10-18 Completed Univ ersity of 00:00:00 [facility] Meningococcal 2018-10-18 Completed University of Vaccine 00:00:00 [place] [facility] TDAP 2018-10-18 Completed University of 00:00:00 [facility] Meningococcal B, OMV 2018-10-18 Completed Univ ersity of 00:00:00 [place] [facility] Meningococcal 2018-10-18 Completed University of Vaccine 00:00:00 [place] [facility] TDAP 2018-10-18 Completed University of 00:00:00 [facility] Meningococcal B, OMV 2018-10-18 Completed Univ ersity of 00:00:00 [place] [facility] Meningococcal 2018-10-18 Completed University of Vaccine 00:00:00 [place] [facility] TDAP 2018-10-18 Completed University of 00:00:00 [facility] Meningococcal B, OMV 2018-10-18 Completed Univ ersity of 00:00:00 [place] [facility] Meningococcal 2018-10-18 Completed University of Vaccine 00:00:00 [place] [facility] TDAP 2018-10-18 Completed University of 00:00:00 [facility] Meningococcal B, OMV 2018-10-18 Completed Univ ersity of 00:00:00 [place] [facility] Meningococcal 2018-10-18 Completed University of Vaccine 00:00:00 [facility] TDAP 2018-10-18 Completed University of 00:00:00 [facility] Meningococcal B, OMV 2018-10-18 Completed Univ ersity of 00:00:00 [facility] Meningococcal 2018-10-18 Completed University of Vaccine 00:00:00 [facility] TDAP 2018-10-18 Completed University of 00:00:00 [facility] Meningococcal B, OMV 2018-10-18 Completed Univ ersity of 00:00:00 [facility] Meningococcal 2018-10-18 Completed University of Vaccine 00:00:00 [place] [facility] TDAP 2018-10-18 Completed University of 00:00:00 [facility] Meningococcal B, OMV 2018-10-18 Completed Univ ersity of 00:00:00 [place] [facility] Meningococcal 2018-10-18 Completed University of Vaccine 00:00:00 [place] [facility] TDAP 2018-10-18 Completed University of 00:00:00 [facility] Meningococcal B, OMV 2018-10-18 Completed Univ ersity of 00:00:00 [place] [facility] Meningococcal 2018-10-18 Completed University of Vaccine 00:00:00 [place] [facility] TDAP 2018-10-18 Completed University of 00:00:00 [facility] Meningococcal B, OMV 2018-10-18 Completed Univ ersity of 00:00:00 [facility] Meningococcal 2018-10-18 Completed University of Vaccine 00:00:00 [facility] TDAP 2018-10-18 Completed University of 00:00:00 [facility] Meningococcal B, OMV 2018-10-18 Completed Univ ersity of 00:00:00 [facility] Meningococcal 2018-10-18 Completed University of Vaccine 00:00:00 [facility] TDAP 2018-10-18 Completed University of 00:00:00 [facility] Meningococcal B, OMV 2018-10-18 Completed Univ ersity of 00:00:00 [facility] Meningococcal 2018-10-18 Completed University of Vaccine 00:00:00 [facility] TDAP 2018-10-18 Completed University of 00:00:00 [facility] Meningococcal B, OMV 2018-10-18 Completed Univ ersity of 00:00:00 [facility] Meningococcal 2018-10-18 Completed University of Polysaccharide 00:00:00 [place] [facility] (groups A, C, Y and Branc h W-135) conjugate vaccine (MCV4P) Meningococcal 2018-10-18 Completed University of Vaccine 00:00:00 [facility] TDAP 2018-10-18 Completed [facility] 00:00:00 [facility] Meningococcal B, OMV 2018-10-18 Completed [facility] 00:00:00 [facility] Meningococcal 2018-10-18 Completed [facility] Polysaccharide 00:00:00 [facility] (groups A, C, Y and Branc h W-135) conjugate vaccine (MCV4P) Meningococcal 2018-10-18 Completed [facility] Vaccine 00:00:00 [facility] TDAP 2018-10-18 Completed [facility] 00:00:00 [facility] Meningococcal B, OMV 2018-10-18 Completed [facility] 00:00:00 [facility] Meningococcal 2018-10-18 Completed [facility] Polysaccharide 00:00:00 [facility] (groups A, C, Y and Branc h W-135) conjugate vaccine (MCV4P) Meningococcal 2018-10-18 Completed [facility] Vaccine 00:00:00 [facility] TDAP 2018-10-18 Completed [facility] 00:00:00 [facility] Meningococcal B, OMV 2018-10-18 Completed [facility] 00:00:00 [facility] Meningococcal 2018-10-18 Completed [facility] Polysaccharide 00:00:00 [place] [facility] (groups A, C, Y and Branc h W-135) conjugate vaccine (MCV4P) Meningococcal 2018-10-18 Completed [facility] Vaccine 00:00:00 [facility] TDAP 2018-10-18 Completed [facility] 00:00:00 [facility] Meningococcal B, OMV 2018-10-18 Completed [facility] 00:00:00 [facility] Meningococcal 2018-10-18 Completed [facility] Polysaccharide 00:00:00 [facility] (groups A, C, Y and Branc h W-135) conjugate vaccine (MCV4P) Meningococcal 2018-10-18 Completed [facility] Vaccine 00:00:00 [facility] TDAP 2018-10-18 Completed [facility] 00:00:00 [facility] Meningococcal B, OMV 2018-10-18 Completed [facility] 00:00:00 [facility] Meningococcal 2018-10-18 Completed [facility] Polysaccharide 00:00:00 [facility] (groups A, C, Y and Branc h W-135) conjugate vaccine (MCV4P) Meningococcal 2018-10-18 Completed [facility] Vaccine 00:00:00 [facility] TDAP 2018-10-18 Completed [facility] 00:00:00 [facility] Meningococcal B, OMV 2018-10-18 Completed [facility] 00:00:00 [facility] Meningococcal 2018-10-18 Completed [facility] Polysaccharide 00:00:00 [facility] (groups A, C, Y and Branc h W-135) conjugate vaccine (MCV4P) Meningococcal 2018-10-18 Completed [facility] Vaccine 00:00:00 [facility] TDAP 2018-10-18 Completed [facility] 00:00:00 [facility] Meningococcal B, OMV 2018-10-18 Completed [facility] 00:00:00 [facility] Meningococcal 2018-10-18 Completed [facility] Polysaccharide 00:00:00 [facility] (groups A, C, Y and Branc h W-135) conjugate vaccine (MCV4P) Meningococcal 2018-10-18 Completed [facility] Vaccine 00:00:00 [facility] TDAP 2018-10-18 Completed [facility] 00:00:00 [facility] Meningococcal B, OMV 2018-10-18 Completed [facility] 00:00:00 [facility] Meningococcal 2018-10-18 Completed [facility] Polysaccharide 00:00:00 [place] [facility] (groups A, C, Y and Branc h W-135) conjugate vaccine (MCV4P) Meningococcal 2018-10-18 Completed [facility] Vaccine 00:00:00 [facility] TDAP 2018-10-18 Completed [facility] 00:00:00 [facility] Meningococcal B, OMV 2018-10-18 Completed [facility] 00:00:00 [facility] Meningococcal 2018-10-18 Completed [facility] Polysaccharide 00:00:00 [facility] (groups A, C, Y and Branc h W-135) conjugate vaccine (MCV4P) Meningococcal 2018-10-18 Completed [facility] Vaccine 00:00:00 [facility] TDAP 2018-10-18 Completed [facility] 00:00:00 [facility] Meningococcal B, OMV 2018-10-18 Completed [facility] 00:00:00 [facility] Meningococcal 2018-10-18 Completed [facility] Polysaccharide 00:00:00 [facility] (groups A, C, Y and Branc h W-135) conjugate vaccine (MCV4P) Meningococcal 2018-10-18 Completed [facility] Vaccine 00:00:00 [facility] TDAP 2018-10-18 Completed [facility] 00:00:00 [facility] Meningococcal B, OMV 2018-10-18 Completed [facility] 00:00:00 [facility] Meningococcal 2018-10-18 Completed [facility] Polysaccharide 00:00:00 [facility] (groups A, C, Y and Branc h W-135) conjugate vaccine (MCV4P) Meningococcal 2018-10-18 Completed [facility] Vaccine 00:00:00 [facility] TDAP 2018-10-18 Completed [facility] 00:00:00 [facility] Meningococcal B, OMV 2018-10-18 Completed [facility] 00:00:00 [facility] Meningococcal 2018-10-18 Completed [facility] Polysaccharide 00:00:00 [facility] (groups A, C, Y and Branc h W-135) conjugate vaccine (MCV4P) Meningococcal 2018-10-18 Completed [facility] Vaccine 00:00:00 [facility] TDAP 2018-10-18 Completed [facility] 00:00:00 [facility] Meningococcal B, OMV 2018-10-18 Completed [facility] 00:00:00 [facility] Meningococcal 2018-10-18 Completed [facility] Polysaccharide 00:00:00 [place] [facility] (groups A, C, Y and Branc h W-135) conjugate vaccine (MCV4P) Meningococcal 2018-10-18 Completed [facility] Vaccine 00:00:00 [facility] TDAP 2018-10-18 Completed [facility] 00:00:00 [facility] Meningococcal B, OMV 2018-10-18 Completed [facility] 00:00:00 [facility] Meningococcal 2018-10-18 Completed [facility] Polysaccharide 00:00:00 [facility] (groups A, C, Y and Branc h W-135) conjugate vaccine (MCV4P) Meningococcal 2018-10-18 Completed [facility] Vaccine 00:00:00 [facility] TDAP 2018-10-18 Completed [facility] 00:00:00 [facility] Meningococcal B, OMV 2018-10-18 Completed [facility] 00:00:00 [facility] Meningococcal 2018-10-18 Completed [facility] Polysaccharide 00:00:00 [facility] (groups A, C, Y and Branc h W-135) conjugate vaccine (MCV4P) Meningococcal 2018-10-18 Completed [facility] Vaccine 00:00:00 [facility] TDAP 2018-10-18 Completed [facility] 00:00:00 [facility] Meningococcal B, OMV 2018-10-18 Completed [facility] 00:00:00 [facility] Meningococcal 2018-10-18 Completed [facility] Polysaccharide 00:00:00 [place] [facility] (groups A, C, Y and Branc h W-135) conjugate vaccine (MCV4P) Meningococcal 2018-10-18 Completed [facility] Vaccine 00:00:00 [facility] TDAP 2018-10-18 Completed [facility] 00:00:00 [facility] Meningococcal B, OMV 2018-10-18 Completed [facility] of 00:00:00 [facility] Meningococcal 2018-10-18 Completed [facility] Polysaccharide 00:00:00 [facility] (groups A, C, Y and Branc h W-135) conjugate vaccine (MCV4P) Meningococcal 2018-10-18 Completed [facility] Vaccine 00:00:00 [facility] TDAP 2018-10-18 Completed [facility] 00:00:00 [facility] Meningococcal B, OMV 2018-10-18 Completed [facility] of 00:00:00 [facility] Meningococcal 2018-10-18 Completed [facility] Polysaccharide 00:00:00 [place] [facility] (groups A, C, Y and Branc h W-135) conjugate vaccine (MCV4P) Meningococcal 2018-10-18 Completed [facility] Vaccine 00:00:00 [facility] TDAP 2018-10-18 Completed [facility] 00:00:00 [facility] Meningococcal B, OMV 2018-10-18 Completed [facility] 00:00:00 [facility] Meningococcal 2018-10-18 Completed [facility] Polysaccharide 00:00:00 [facility] (groups A, C, Y and Branc h W-135) conjugate vaccine (MCV4P) Meningococcal 2018-10-18 Completed [facility] Vaccine 00:00:00 [facility] TDAP 2018-10-18 Completed [facility] 00:00:00 [facility] Meningococcal B, OMV 2018-10-18 Completed [facility] 00:00:00 [facility] Meningococcal 2018-10-18 Completed [facility] Polysaccharide 00:00:00 [facility] (groups A, C, Y and Branc h W-135) conjugate vaccine (MCV4P) Meningococcal 2018-10-18 Completed [facility] Vaccine 00:00:00 [facility] TDAP 2018-10-18 Completed [facility] 00:00:00 [facility] Meningococcal B, OMV 2018-10-18 Completed [facility] 00:00:00 [facility] Meningococcal 2018-10-18 Completed [facility] Polysaccharide 00:00:00 [place] [facility] (groups A, C, Y and Branc h W-135) conjugate vaccine (MCV4P) Meningococcal 2018-10-18 Completed [facility] Vaccine 00:00:00 [facility] TDAP 2018-10-18 Completed [facility] 00:00:00 [facility] Meningococcal B, OMV 2018-10-18 Completed [facility] of 00:00:00 [facility] Meningococcal 2018-10-18 Completed [facility] Polysaccharide 00:00:00 [place] [facility] (groups A, C, Y and Branc h W-135) conjugate vaccine (MCV4P) Meningococcal 2018-10-18 Completed [facility] Vaccine 00:00:00 [facility] TDAP 2018-10-18 Completed [facility] 00:00:00 [facility] Meningococcal B, OMV 2018-10-18 Completed [facility] 00:00:00 [facility] Meningococcal 2018-10-18 Completed [facility] Polysaccharide 00:00:00 [place] [facility] (groups A, C, Y and Branc h W-135) conjugate vaccine (MCV4P) Meningococcal 2018-10-18 Completed [facility] Vaccine 00:00:00 [facility] TDAP 2018-10-18 Completed [facility] 00:00:00 [facility] Meningococcal B, OMV 2018-10-18 Completed [facility] 00:00:00 [facility] Meningococcal 2018-10-18 Completed [facility] Polysaccharide 00:00:00 [facility] (groups A, C, Y and Branc h W-135) conjugate vaccine (MCV4P) Meningococcal 2018-10-18 Completed [facility] Vaccine 00:00:00 [facility] TDAP 2018-10-18 Completed [facility] 00:00:00 [facility] Meningococcal B, OMV 2018-10-18 Completed [facility] 00:00:00 [facility] Meningococcal 2018-10-18 Completed [facility] Polysaccharide 00:00:00 [facility] (groups A, C, Y and Branc h W-135) conjugate vaccine (MCV4P) DTAP 2006-10-25 Completed [facility] 00:00:00 [facility] Hepatitis A Adult 2006-10-25 Completed [facility] 00:00:00 [facility] Polio (IPV/OPV) 2006-10-25 Completed [facility] 00:00:00 [facility] DTAP 2006-10-25 Completed [facility] 00:00:00 [facility] Hepatitis A Adult 2006-10-25 Completed [facility] 00:00:00 [facility] Polio (IPV/OPV) 2006-10-25 Completed [facility] of 00:00:00 [facility] DTAP 2006-10-25 Completed [facility] 00:00:00 [facility] Hepatitis A Adult 2006-10-25 Completed [facility] 00:00:00 [facility] Polio (IPV/OPV) 2006-10-25 Completed [facility] of 00:00:00 [facility] DTAP 2006-10-25 Completed [facility] 00:00:00 [facility] Hepatitis A Adult 2006-10-25 Completed [facility] 00:00:00 [facility] Polio (IPV/OPV) 2006-10-25 Completed [facility] of 00:00:00 [facility] DTAP 2006-10-25 Completed [facility] 00:00:00 [facility] Hepatitis A Adult 2006-10-25 Completed [facility] 00:00:00 [facility] Polio (IPV/OPV) 2006-10-25 Completed [facility] of 00:00:00 [facility] DTAP 2006-10-25 Completed [facility] 00:00:00 [facility] Hepatitis A Adult 2006-10-25 Completed [facility] 00:00:00 [facility] Polio (IPV/OPV) 2006-10-25 Completed [facility] of 00:00:00 [facility] DTAP 2006-10-25 Completed [facility] 00:00:00 [facility] Hepatitis A Adult 2006-10-25 Completed [facility] of 00:00:00 [facility] Polio (IPV/OPV) 2006-10-25 Completed [facility] of 00:00:00 [facility] DTAP 2006-10-25 Completed [facility] 00:00:00 [facility] Hepatitis A Adult 2006-10-25 Completed [facility] 00:00:00 [facility] Polio (IPV/OPV) 2006-10-25 Completed [facility] of 00:00:00 [facility] DTAP 2006-10-25 Completed [facility] 00:00:00 [facility] Hepatitis A Adult 2006-10-25 Completed [facility] 00:00:00 [facility] Polio (IPV/OPV) 2006-10-25 Completed [facility] y of 00:00:00 [facility] DTAP 2006-10-25 Completed [facility] 00:00:00 [facility] Hepatitis A Adult 2006-10-25 Completed [facility] of 00:00:00 [facility] Polio (IPV/OPV) 2006-10-25 Completed [facility] of 00:00:00 [facility] DTAP 2006-10-25 Completed [facility] 00:00:00 [facility] Hepatitis A Adult 2006-10-25 Completed [facility] 00:00:00 [facility] Polio (IPV/OPV) 2006-10-25 Completed [facility] y of 00:00:00 [facility] DTAP 2006-10-25 Completed [facility] 00:00:00 [facility] Hepatitis A Adult 2006-10-25 Completed [facility] 00:00:00 [facility] Polio (IPV/OPV) 2006-10-25 Completed [facility] y of 00:00:00 [facility] DTAP 2006-10-25 Completed [facility] 00:00:00 [facility] Hepatitis A Adult 2006-10-25 Completed [facility] 00:00:00 [facility] Polio (IPV/OPV) 2006-10-25 Completed [facility] y of 00:00:00 [facility] DTAP 2006-10-25 Completed [facility] 00:00:00 [facility] Hepatitis A Adult 2006-10-25 Completed [facility] 00:00:00 [facility] Polio (IPV/OPV) 2006-10-25 Completed [facility] of 00:00:00 [facility] DTAP 2006-10-25 Completed [facility] 00:00:00 [facility] Hepatitis A Adult 2006-10-25 Completed [facility] 00:00:00 [facility] Polio (IPV/OPV) 2006-10-25 Completed [facility] of 00:00:00 [facility] DTAP 2006-10-25 Completed [facility] 00:00:00 [facility] Hepatitis A Adult 2006-10-25 Completed [facility] 00:00:00 [facility] Polio (IPV/OPV) 2006-10-25 Completed [facility] y of 00:00:00 [facility] DTAP 2006-10-25 Completed [facility] 00:00:00 [facility] Hepatitis A Adult 2006-10-25 Completed [facility] 00:00:00 [facility] Polio (IPV/OPV) 2006-10-25 Completed [facility] y of 00:00:00 [facility] DTAP 2006-10-25 Completed [facility] 00:00:00 [facility] Hepatitis A Adult 2006-10-25 Completed [facility] 00:00:00 [facility] Polio (IPV/OPV) 2006-10-25 Completed [facility] y of 00:00:00 [facility] DTAP 2006-10-25 Completed [facility] 00:00:00 [facility] Hepatitis A Adult 2006-10-25 Completed [facility] 00:00:00 [facility] Polio (IPV/OPV) 2006-10-25 Completed [facility] of 00:00:00 [facility] DTAP 2006-10-25 Completed [facility] 00:00:00 [facility] Hepatitis A Adult 2006-10-25 Completed [facility] 00:00:00 [facility] Polio (IPV/OPV) 2006-10-25 Completed [facility] y of 00:00:00 [facility] DTAP 2006-10-25 Completed [facility] 00:00:00 [facility] Hepatitis A Adult 2006-10-25 Completed [facility] 00:00:00 [facility] Polio (IPV/OPV) 2006-10-25 Completed [facility] of 00:00:00 [facility] DTAP 2006-10-25 Completed [facility] 00:00:00 [facility] Hepatitis A Adult 2006-10-25 Completed [facility] 00:00:00 [facility] Polio (IPV/OPV) 2006-10-25 Completed [facility] of 00:00:00 [facility] DTAP 2006-10-25 Completed [facility] 00:00:00 [facility] Hepatitis A Adult 2006-10-25 Completed [facility] 00:00:00 [facility] Polio (IPV/OPV) 2006-10-25 Completed [facility] of 00:00:00 [facility] DTAP 2006-10-25 Completed [facility] 00:00:00 [facility] Hepatitis A Adult 2006-10-25 Completed [facility] 00:00:00 [facility] Polio (IPV/OPV) 2006-10-25 Completed [facility] of 00:00:00 [facility] DTAP 2006-10-25 Completed [facility] 00:00:00 [facility] Hepatitis A Adult 2006-10-25 Completed [facility] 00:00:00 [facility] Polio (IPV/OPV) 2006-10-25 Completed [facility] of 00:00:00 [facility] DTAP 2006-10-25 Completed [facility] 00:00:00 [facility] Hepatitis A Adult 2006-10-25 Completed [facility] 00:00:00 [facility] Polio (IPV/OPV) 2006-10-25 Completed [facility] of 00:00:00 [facility] DTAP 2006-10-25 Completed [facility] 00:00:00 [facility] Hepatitis A Adult 2006-10-25 Completed [facility] 00:00:00 [facility] Polio (IPV/OPV) 2006-10-25 Completed [facility] of 00:00:00 [facility] DTAP 2006-10-25 Completed [facility] 00:00:00 [facility] Hepatitis A Adult 2006-10-25 Completed [facility] 00:00:00 [facility] Polio (IPV/OPV) 2006-10-25 Completed [facility] of 00:00:00 [facility] DTAP 2006-10-25 Completed [facility] 00:00:00 [facility] Hepatitis A Adult 2006-10-25 Completed [facility] 00:00:00 [facility] Polio (IPV/OPV) 2006-10-25 Completed [facility] of 00:00:00 [facility] DTAP 2006-10-25 Completed [facility] 00:00:00 [facility] Hepatitis A Adult 2006-10-25 Completed [facility] 00:00:00 [facility] Polio (IPV/OPV) 2006-10-25 Completed [facility] of 00:00:00 [facility] DTAP 2006-10-25 Completed [facility] 00:00:00 [facility] Hepatitis A Adult 2006-10-25 Completed [facility] 00:00:00 [facility] Polio (IPV/OPV) 2006-10-25 Completed [facility] of 00:00:00 [facility] DTAP 2006-10-25 Completed [facility] 00:00:00 [facility] Hepatitis A Adult 2006-10-25 Completed [facility] 00:00:00 [facility] Polio (IPV/OPV) 2006-10-25 Completed [facility] of 00:00:00 [facility] DTAP 2006-10-25 Completed [facility] 00:00:00 [facility] Hepatitis A Adult 2006-10-25 Completed [facility] 00:00:00 [facility] Polio (IPV/OPV) 2006-10-25 Completed [facility] 00:00:00 [facility] DTAP 2006-10-25 Completed [facility] 00:00:00 [facility] Hepatitis A Adult 2006-10-25 Completed [facility] 00:00:00 [facility] Polio (IPV/OPV) 2006-10-25 Completed [facility] 00:00:00 [facility] DTAP 2006-10-25 Completed [facility] 00:00:00 [facility] Hepatitis A Adult 2006-10-25 Completed [facility] 00:00:00 [facility] Polio (IPV/OPV) 2006-10-25 Completed [facility] 00:00:00 [facility] DTAP 2006-10-25 Completed [facility] 00:00:00 [facility] Hepatitis A Adult 2006-10-25 Completed [facility] 00:00:00 [facility] Polio (IPV/OPV) 2006-10-25 Completed [facility] 00:00:00 [facility] DTAP 2006-10-25 Completed [facility] 00:00:00 [facility] Hepatitis A Adult 2006-10-25 Completed [facility] 00:00:00 [facility] Polio (IPV/OPV) 2006-10-25 Completed [facility] 00:00:00 [facility] DTAP 2006-10-25 Completed [facility] 00:00:00 [facility] Hepatitis A Adult 2006-10-25 Completed [facility] 00:00:00 [facility] Polio (IPV/OPV) 2006-10-25 Completed [facility] 00:00:00 [facility] DTaP, Unspecified 2006-10-25 Completed Univers ity of Formulation 00:00:00 [facility] HEPA,NOS 2006-10-25 Completed [facility] 00:00:00 [facility] IPV 2006-10-25 Completed [facility] 00:00:00 [facility] DTAP 2006-10-25 Completed [facility] 00:00:00 [facility] Hepatitis A Adult 2006-10-25 Completed [facility] 00:00:00 [facility] Polio (IPV/OPV) 2006-10-25 Completed [facility] 00:00:00 [facility] DTaP, Unspecified 2006-10-25 Completed [facility] of Formulation 00:00:00 [facility] HEPA,NOS 2006-10-25 Completed [facility] 00:00:00 [facility] IPV 2006-10-25 Completed [facility] 00:00:00 [facility] DTAP 2006-10-25 Completed [facility] 00:00:00 [facility] Hepatitis A Adult 2006-10-25 Completed [facility] 00:00:00 [facility] Polio (IPV/OPV) 2006-10-25 Completed [facility] 00:00:00 [facility] DTaP, Unspecified 2006-10-25 Completed [facility]y of Formulation 00:00:00 [facility] HEPA,NOS 2006-10-25 Completed [facility] 00:00:00 [facility] IPV 2006-10-25 Completed [facility] 00:00:00 [facility] DTAP 2006-10-25 Completed [facility] 00:00:00 [facility] Hepatitis A Adult 2006-10-25 Completed [facility] 00:00:00 [facility] Polio (IPV/OPV) 2006-10-25 Completed [facility] 00:00:00 [facility] DTaP, Unspecified 2006-10-25 Completed [facility] Formulation 00:00:00 [facility] HEPA,NOS 2006-10-25 Completed [facility] 00:00:00 [facility] IPV 2006-10-25 Completed [facility] 00:00:00 [facility] DTAP 2006-10-25 Completed [facility] 00:00:00 [facility] Hepatitis A Adult 2006-10-25 Completed [facility] 00:00:00 [facility] Polio (IPV/OPV) 2006-10-25 Completed [facility] 00:00:00 [facility] DTaP, Unspecified 2006-10-25 Completed [facility] Formulation 00:00:00 [facility] HEPA,NOS 2006-10-25 Completed [facility] 00:00:00 [facility] IPV 2006-10-25 Completed [facility] 00:00:00 [facility] DTAP 2006-10-25 Completed [facility] 00:00:00 [facility] Hepatitis A Adult 2006-10-25 Completed [facility] 00:00:00 [facility] Polio (IPV/OPV) 2006-10-25 Completed [facility] 00:00:00 [facility] DTaP, Unspecified 2006-10-25 Completed [facility] Formulation 00:00:00 [facility] HEPA,NOS 2006-10-25 Completed [facility] 00:00:00 [facility] IPV 2006-10-25 Completed [facility]00 [facility] [facility] 2006[facility]10[facility]25 [facility] 00:[facility]00 [facility] Hepatitis A Adult 2006-10-25 Completed [facility] 00:00:00 [facility] Polio (IPV/OPV) 2006-10-25 Completed [facility] 00:00:00 [facility] DTaP, Unspecified 2006-10-25 Completed [facility] Formulation 00:00:00 [facility] HEPA,NOS 2006-10-25 Completed [facility] 00:00:00 [facility] IPV 2006-10-25 Completed [facility] 00:00:00 [facility] DTAP 2006-10-25 Completed [facility] 00:00:00 [facility] Hepatitis A Adult 2006-10-25 Completed [facility] 00:00:00 [facility] Polio (IPV/OPV) 2006-10-25 Completed [facility] 00:00:00 [facility] DTaP, Unspecified 2006-10-25 Completed [facility] Formulation 00:00:00 [facility] HEPA,NOS 2006-10-25 Completed [facility] 00:00:00 [facility] IPV 2006-10-25 Completed [facility] 00:00:00 [facility] DTAP 2006-10-25 Completed [facility] 00:00:00 [facility] Hepatitis A Adult 2006-10-25 Completed [facility] 00:00:00 [facility] Polio (IPV/OPV) 2006-10-25 Completed [facility] 00:00:00 [facility] DTaP, Unspecified 2006-10-25 Completed [facility] Formulation 00:00:00 [facility] HEPA,NOS 2006-10-25 Completed [facility] 00:00:00 [facility] IPV 2006-10-25 Completed [facility] 00:00:00 [facility] DTAP 2006-10-25 Completed [facility] 00:00:00 [facility] Hepatitis A Adult 2006-10-25 Completed [facility] 00:00:00 [facility] Polio (IPV/OPV) 2006-10-25 Completed [facility] 00:00:00 [facility] DTaP, Unspecified 2006-10-25 Completed [facility] Formulation 00:00:00 [facility] HEPA,NOS 2006-10-25 Completed [facility] 00:00:00 [facility] IPV 2006-10-25 Completed [facility] 00:00:00 [facility] DTAP 2006-10-25 Completed [facility] 00:00:00 [facility] Hepatitis A Adult 2006-10-25 Completed [facility] 00:00:00 [facility] Polio (IPV/OPV) 2006-10-25 Completed [facility] 00:00:00 [facility] DTaP, Unspecified 2006-10-25 Completed [facility] Formulation 00:00:00 [facility] HEPA,NOS 2006-10-25 Completed [facility] 00:00:00 [facility] IPV 2006-10-25 Completed [facility] 00:00:00 [facility] DTAP 2006-10-25 Completed [facility] 00:00:00 [facility] Hepatitis A Adult 2006-10-25 Completed [facility] 00:00:00 [facility] Polio (IPV/OPV) 2006-10-25 Completed [facility] 00:00:00 [facility] DTaP, Unspecified 2006-10-25 Completed [facility] Formulation 00:00:00 [facility] HEPA,NOS 2006-10-25 Completed [facility] 00:00:00 [facility] IPV 2006-10-25 Completed [facility] 00:00:00 [facility] DTAP 2006-10-25 Completed [facility] 00:00:00 [facility] Hepatitis A Adult 2006-10-25 Completed [facility] 00:00:00 [facility] Polio (IPV/OPV) 2006-10-25 Completed [facility] 00:00:00 [facility] DTaP, Unspecified 2006-10-25 Completed [facility] Formulation 00:00:00 [facility] HEPA,NOS 2006-10-25 Completed [facility] 00:00:00 [facility] IPV 2006-10-25 Completed [facility] 00:00:00 [facility] DTAP 2006-10-25 Completed [facility] 00:00:00 [facility] Hepatitis A Adult 2006-10-25 Completed [facility] 00:00:00 [facility] Polio (IPV/OPV) 2006-10-25 Completed [facility] 00:00:00 [facility] DTaP, Unspecified 2006-10-25 Completed [facility] Formulation 00:00:00 [facility] HEPA,NOS 2006-10-25 Completed [facility] 00:00:00 [facility] IPV 2006-10-25 Completed [facility] 00:00:00 [facility] DTAP 2006-10-25 Completed [facility] 00:00:00 [facility] Hepatitis A Adult 2006-10-25 Completed [facility] 00:00:00 [facility] Polio (IPV/OPV) 2006-10-25 Completed [facility] 00:00:00 [facility] DTaP, Unspecified 2006-10-25 Completed [facility] Formulation 00:00:00 [facility] HEPA,NOS 2006-10-25 Completed [facility] 00:00:00 [facility] IPV 2006-10-25 Completed [facility] 00:00:00 [facility] DTAP 2006-10-25 Completed [facility] 00:00:00 [facility] Hepatitis A Adult 2006-10-25 Completed [facility] 00:00:00 [facility] Polio (IPV/OPV) 2006-10-25 Completed [facility] 00:00:00 [facility] DTaP, Unspecified 2006-10-25 Completed [facility] Formulation 00:00:00 [facility] HEPA,NOS 2006-10-25 Completed [facility] 00:00:00 [facility] IPV 2006-10-25 Completed [facility] 00:00:00 [facility] DTAP 2006-10-25 Completed [facility] 00:00:00 [facility] Hepatitis A Adult 2006-10-25 Completed [facility] 00:00:00 [facility] Polio (IPV/OPV) 2006-10-25 Completed [facility] 00:00:00 [facility] DTaP, Unspecified 2006-10-25 Completed [facility] Formulation 00:00:00 [facility] HEPA,NOS 2006-10-25 Completed [facility] 00:00:00 [facility] IPV 2006-10-25 Completed [facility] 00:00:00 [facility] DTAP 2006-10-25 Completed [facility] 00:00:00 [facility] Hepatitis A Adult 2006-10-25 Completed [facility] 00:00:00 [facility] Polio (IPV/OPV) 2006-10-25 Completed [facility] 00:00:00 [facility] DTaP, Unspecified 2006-10-25 Completed [facility] Formulation 00:00:00 [facility] HEPA,NOS 2006-10-25 Completed [facility] 00:00:00 [facility] IPV 2006-10-25 Completed [facility] 00:00:00 [facility] DTAP 2006-10-25 Completed [facility] 00:00:00 [facility] Hepatitis A Adult 2006-10-25 Completed [facility] 00:00:00 [facility] Polio (IPV/OPV) 2006-10-25 Completed [facility] 00:00:00 [facility] DTaP, Unspecified 2006-10-25 Completed [facility] Formulation 00:00:00 [facility] HEPA,NOS 2006-10-25 Completed [facility] 00:00:00 [facility] IPV 2006-10-25 Completed [facility] 00:00:00 [facility] DTAP 2006-10-25 Completed [facility] 00:00:00 [facility] Hepatitis A Adult 2006-10-25 Completed [facility] 00:00:00 [facility] Polio (IPV/OPV) 2006-10-25 Completed [facility] 00:00:00 [facility] DTaP, Unspecified 2006-10-25 Completed [facility] Formulation 00:00:00 [facility] HEPA,NOS 2006-10-25 Completed [facility] 00:00:00 [facility] IPV 2006-10-25 Completed [facility] 00:00:00 [facility] DTAP 2006-10-25 Completed [facility] 00:00:00 [facility] Hepatitis A Adult 2006-10-25 Completed [facility] 00:00:00 [facility] Polio (IPV/OPV) 2006-10-25 Completed [facility] 00:00:00 [facility] DTaP, Unspecified 2006-10-25 Completed [facility] Formulation 00:00:00 [facility] HEPA,NOS 2006-10-25 Completed [facility] 00:00:00 [facility] IPV 2006-10-25 Completed [facility] 00:00:00 [facility] DTAP 2006-10-25 Completed [facility] 00:00:00 [facility] Hepatitis A Adult 2006-10-25 Completed [facility] 00:00:00 [facility] Polio (IPV/OPV) 2006-10-25 Completed [facility] 00:00:00 [facility] DTaP, Unspecified 2006-10-25 Completed [facility] Formulation 00:00:00 [facility] HEPA,NOS 2006-10-25 Completed [facility] 00:00:00 [facility] IPV 2006-10-25 Completed [facility] 00:00:00 [facility] DTAP 2006-10-25 Completed [facility] 00:00:00 [facility] Hepatitis A Adult 2006-10-25 Completed [facility] 00:00:00 [facility] Polio (IPV/OPV) 2006-10-25 Completed [facility] 00:00:00 [facility] DTaP, Unspecified 2006-10-25 Completed [facility] Formulation 00:00:00 [facility] HEPA,NOS 2006-10-25 Completed [facility] 00:00:00 [facility] IPV 2006-10-25 Completed [facility] 00:00:00 [facility] DTAP 2006-10-25 Completed [facility] 00:00:00 [facility] Hepatitis A Adult 2006-10-25 Completed [facility] 00:00:00 [facility] Polio (IPV/OPV) 2006-10-25 Completed [facility] 00:00:00 [facility] DTaP, Unspecified 2006-10-25 Completed [facility] Formulation 00:00:00 [facility] HEPA,NOS 2006-10-25 Completed [facility] 00:00:00 [facility] IPV 2006-10-25 Completed [facility] 00:00:00 [facility] DTAP 2006-10-25 Completed [facility] 00:00:00 [facility] Hepatitis A Adult 2006-10-25 Completed [facility] 00:00:00 [facility] Polio (IPV/OPV) 2006-10-25 Completed [facility] 00:00:00 [facility] DTaP, Unspecified 2006-10-25 Completed [facility] Formulation 00:00:00 [facility] HEPA,NOS 2006-10-25 Completed [facility] 00:00:00 [facility] IPV 2006-10-25 Completed [facility] 00:00:00 [facility] DTAP 2006-10-25 Completed [facility] 00:00:00 [facility] Hepatitis A Adult 2006-10-25 Completed [facility] 00:00:00 [facility] Polio (IPV/OPV) 2006-10-25 Completed [facility] 00:00:00 [facility] DTaP, Unspecified 2006-10-25 Completed [facility] Formulation 00:00:00 [facility] HEPA,NOS 2006-10-25 Completed [facility] 00:00:00 [facility] IPV 2006-10-25 Completed [facility] 00:00:00 [facility] DTAP 2005-09-20 Completed [facility] 00:00:00 [facility] HIB 3 Dose Schedule 2005-09-20 Completed [facility] rs[facility] 00:00:00 [facility] Hepatitis A Adult 2005-09-20 Completed [facility] 00:00:00 [facility] Hep B, Adol or Pedi 2005-09-20 Completed [facility]ive rsity of Dosage 00:00:00 [facility] Pneumococcal 13 2005-09-20 Completed [facility] of Conjugate, PCV13 00:00:00 [facility] dical (Prevnar 13) Branch Polio (IPV/OPV) 2005-09-20 Completed [facility] 00:00:00 [facility] DTAP 2005-09-20 Completed [facility] 00:00:00 [facility] HIB 3 Dose Schedule 2005-09-20 Completed [facility] rsity of 00:00:00 [facility] Hepatitis A Adult 2005-09-20 Completed [facility] 00:00:00 [facility] Hep B, Adol or Pedi 2005-09-20 Completed [facility]ive rsity of Dosage 00:00:00 [facility] Pneumococcal 13 2005-09-20 Completed [facility] Conjugate, PCV13 00:00:[address] [facility] dical (Prevnar 13) Branch Polio (IPV/OPV) 2005-09-20 Completed [facility] 00:00:00 [facility] DTAP 2005-09-20 Completed [facility] 00:00:00 [facility] HIB 3 Dose Schedule 2005-09-20 Completed [facility] rsity of 00:00:00 [facility] Hepatitis A Adult 2005-09-20 Completed [facility] 00:00:00 [facility] Hep B, Adol or Pedi 2005-09-20 Completed [facility]ive rsity of Dosage 00:00:00 [facility] Pneumococcal 13 2005-09-20 Completed [facility] of Conjugate, PCV13 00:00:00 [facility] dical (Prevnar 13) Branch Polio (IPV/OPV) 2005-09-20 Completed [facility] 00:00:00 [facility] DTAP 2005-09-20 Completed [facility] 00:00:00 [facility] HIB 3 Dose Schedule 2005-09-20 Completed [facility] rs[facility] of 00:00:00 [facility] Hepatitis A Adult 2005-09-20 Completed [facility] 00:00:00 [facility] Hep B, Adol or Pedi 2005-09-20 Completed [facility]ive rsity of Dosage 00:00:00 [facility] Pneumococcal 13 2005-09-20 Completed [facility] of Conjugate, PCV13 00:00:00 [facility] dical (Prevnar 13) Branch Polio (IPV/OPV) 2005-09-20 Completed [facility] 00:00:00 [facility] DTAP 2005-09-20 Completed [facility] 00:00:00 [facility] HIB 3 Dose Schedule 2005-09-20 Completed [facility] rsity of 00:00:00 [facility] Hepatitis A Adult 2005-09-20 Completed [facility] 00:00:00 [facility] Hep B, Adol or Pedi 2005-09-20 Completed Unive rsity of Dosage 00:00:00 [facility] Pneumococcal 13 2005-09-20 Completed [facility] of Conjugate, PCV13 00:00:[address] [facility] dical (Prevnar 13) Branch Polio (IPV/OPV) 2005-09-20 Completed [facility] 00:00:00 [facility] DTAP 2005-09-20 Completed [facility] 00:00:00 [facility] HIB 3 Dose Schedule 2005-09-20 Completed [facility] rs[facility] of 00:00:00 [facility] Hepatitis A Adult 2005-09-20 Completed [facility] 00:00:00 [facility] Hep B, Adol or Pedi 2005-09-20 Completed [facility]ive rsity of Dosage 00:00:00 [facility] Pneumococcal 13 2005-09-20 Completed [facility] of Conjugate, PCV13 00:00:00 [facility] dical (Prevnar 13) Branch Polio (IPV/OPV) 2005-09-20 Completed [facility] 00:00:00 [facility] DTAP 2005-09-20 Completed [facility] 00:00:00 [facility] HIB 3 Dose Schedule 2005-09-20 Completed [facility] rs[facility] of 00:00:00 [facility] Hepatitis A Adult 2005-09-20 Completed [facility] 00:00:00 [facility] Hep B, Adol or Pedi 2005-09-20 Completed [facility]ive rs[facility] of Dosage 00:00:00 [facility] Pneumococcal 13 2005-09-20 Completed [facility] Conjugate, PCV13 00:00:00 [facility] dical (Prevnar 13) Branch Polio (IPV/OPV) 2005-09-20 Completed [facility] 00:00:00 [facility] DTAP 2005-09-20 Completed [facility] 00:00:00 [facility] HIB 3 Dose Schedule 2005-09-20 Completed [facility] rsity of 00:00:00 [facility] Hepatitis A Adult 2005-09-20 Completed [facility] 00:00:00 [facility] Hep B, Adol or Pedi 2005-09-20 Completed [facility]ive rsity of Dosage 00:00:00 [facility] Pneumococcal 13 2005-09-20 Completed [facility] Conjugate, PCV13 00:00:00 [facility] (Prevnar 13) Branch Polio (IPV/OPV) 2005-09-20 Completed [facility] 00:00:00 [facility] DTAP 2005-09-20 Completed [facility] 00:00:00 [facility] HIB 3 Dose Schedule 2005-09-20 Completed [facility] rs[facility] of 00:00:00 [facility] Hepatitis A Adult 2005-09-20 Completed [facility] 00:00:00 [facility] Hep B, Adol or Pedi 2005-09-20 Completed [facility]ive rs[facility] of Dosage 00:00:00 [facility] Pneumococcal 13 2005-09-20 Completed [facility] of Conjugate, PCV13 00:00:[address] [facility] dical (Prevnar 13) Branch Polio (IPV/OPV) 2005-09-20 Completed [facility] 00:00:00 [facility] DTAP 2005-09-20 Completed [facility] 00:00:00 [facility] HIB 3 Dose Schedule 2005-09-20 Completed [facility] rs[facility] of 00:00:00 [facility] Hepatitis A Adult 2005-09-20 Completed [facility] 00:00:00 [facility] Hep B, Adol or Pedi 2005-09-20 Completed [facility]ive rs[facility] of Dosage 00:00:00 [facility] Pneumococcal 13 2005-09-20 Completed [facility] of Conjugate, PCV13 00:00:00 [facility] dical (Prevnar 13) Branch Polio (IPV/OPV) 2005-09-20 Completed [facility] 00:00:00 [facility] DTAP 2005-09-20 Completed [facility] 00:00:00 [facility] HIB 3 Dose Schedule 2005-09-20 Completed [facility] rsity of 00:00:00 [facility] Hepatitis A Adult 2005-09-20 Completed [facility] 00:00:00 [facility] Hep B, Adol or Pedi 2005-09-20 Completed [facility]ive rs[facility] of Dosage 00:00:00 [facility] Pneumococcal 13 2005-09-20 Completed [facility] of Conjugate, PCV13 00:00:00 [facility] dical (Prevnar 13) Branch Polio (IPV/OPV) 2005-09-20 Completed [facility] 00:00:00 [facility] DTAP 2005-09-20 Completed [facility] 00:00:00 [facility] HIB 3 Dose Schedule 2005-09-20 Completed [facility] rs[facility] of 00:00:00 [facility] Hepatitis A Adult 2005-09-20 Completed [facility] 00:00:00 [facility] Hep B, Adol or Pedi 2005-09-20 Completed [facility]ive rs[facility] of Dosage 00:00:00 [facility] Pneumococcal 13 2005-09-20 Completed [facility] of Conjugate, PCV13 00:00:00 [facility] dical (Prevnar 13) Branch Polio (IPV/OPV) 2005-09-20 Completed [facility] 00:00:00 [facility] DTAP 2005-09-20 Completed [facility] 00:00:00 [facility] HIB 3 Dose Schedule 2005-09-20 Completed [facility] rs[facility] of 00:00:00 [facility] Hepatitis A Adult 2005-09-20 Completed [facility] 00:00:00 [facility] Hep B, Adol or Pedi 2005-09-20 Completed [facility] rs[facility] of Dosage 00:00:00 [facility] Pneumococcal 13 2005-09-20 Completed [facility] Conjugate, PCV13 00:00:00 [facility] dical (Prevnar 13) Branch Polio (IPV/OPV) 2005-09-20 Completed [facility] 00:00:00 [facility] DTAP 2005-09-20 Completed [facility] 00:00:00 [facility] HIB 3 Dose Schedule 2005-09-20 Completed [facility] rs[facility] of 00:00:00 [facility] Hepatitis A Adult 2005-09-20 Completed [facility] 00:00:00 [facility] Hep B, Adol or Pedi 2005-09-20 Completed [facility]ive rs[facility] of Dosage 00:00:00 [facility] Pneumococcal 13 2005-09-20 Completed [facility] of Conjugate, PCV13 00:00:00 [facility] dical (Prevnar 13) Branch Polio (IPV/OPV) 2005-09-20 Completed [facility] 00:00:00 [facility] DTAP 2005-09-20 Completed [facility] 00:00:00 [facility] HIB 3 Dose Schedule 2005-09-20 Completed [facility] rs[facility] of 00:00:00 [facility] Hepatitis A Adult 2005-09-20 Completed [facility] 00:00:00 [facility] Hep B, Adol or Pedi 2005-09-20 Completed [facility]ive rs[facility] of Dosage 00:00:00 [facility] Pneumococcal 13 2005-09-20 Completed [facility] of Conjugate, PCV13 00:00:00 [facility] dical (Prevnar 13) Branch Polio (IPV/OPV) 2005-09-20 Completed [facility] 00:00:00 [facility] DTAP 2005-09-20 Completed [facility] 00:00:00 [facility] HIB 3 Dose Schedule 2005-09-20 Completed [facility] rs[facility] of 00:00:00 [facility] Hepatitis A Adult 2005-09-20 Completed [facility] 00:00:00 [facility] Hep B, Adol or Pedi 2005-09-20 Completed [facility] rs[facility] of Dosage 00:00:00 [facility] Pneumococcal 13 2005-09-20 Completed [facility] of Conjugate, PCV13 00:00:00 [facility] dical (Prevnar 13) Branch Polio (IPV/OPV) 2005-09-20 Completed [facility] 00:00:00 [facility] DTAP 2005-09-20 Completed [facility] 00:00:00 [facility] HIB 3 Dose Schedule 2005-09-20 Completed [facility] rs[facility] of 00:00:00 [facility] Hepatitis A Adult 2005-09-20 Completed [facility] 00:00:00 [facility] Hep B, Adol or Pedi 2005-09-20 Completed [facility] rs[facility] of Dosage 00:00:00 [facility] Pneumococcal 13 2005-09-20 Completed [facility] of Conjugate, PCV13 00:00:00 [facility] dical (Prevnar 13) Branch Polio (IPV/OPV) 2005-09-20 Completed [facility] 00:00:00 [facility] DTAP 2005-09-20 Completed [facility] 00:00:00 [facility] HIB 3 Dose Schedule 2005-09-20 Completed [facility] rs[facility] of 00:00:00 [facility] Hepatitis A Adult 2005-09-20 Completed [facility] 00:00:00 [facility] Hep B, Adol or Pedi 2005-09-20 Completed [facility] rs[facility] of Dosage 00:00:00 [facility] Pneumococcal 13 2005-09-20 Completed [facility] of Conjugate, PCV13 00:00:00 [facility] dical (Prevnar 13) Branch Polio (IPV/OPV) 2005-09-20 Completed [facility] 00:00:00 [facility] DTAP 2005-09-20 Completed [facility] 00:00:00 [facility] HIB 3 Dose Schedule 2005-09-20 Completed [facility] of 00:00:00 [facility] Hepatitis A Adult 2005-09-20 Completed [facility] 00:00:00 [facility] Hep B, Adol or Pedi 2005-09-20 Completed [facility] rs[facility] of Dosage 00:00:00 [facility] Pneumococcal 13 2005-09-20 Completed [facility] of Conjugate, PCV13 00:00:00 [facility] dical (Prevnar 13) Branch Polio (IPV/OPV) 2005-09-20 Completed [facility] 00:00:00 [facility] DTAP 2005-09-20 Completed [facility] 00:00:00 [facility] HIB 3 Dose Schedule 2005-09-20 Completed [facility] of 00:00:00 [facility] Hepatitis A Adult 2005-09-20 Completed [facility] 00:00:00 [facility] Hep B, Adol or Pedi 2005-09-20 Completed [facility] rs[facility] of Dosage 00:00:00 [facility] Pneumococcal 13 2005-09-20 Completed [facility] Conjugate, PCV13 00:00:00 [facility] dical (Prevnar 13) Branch Polio (IPV/OPV) 2005-09-20 Completed [facility] 00:00:00 [facility] DTAP 2005-09-20 Completed [facility] 00:00:00 [facility] HIB 3 Dose Schedule 2005-09-20 Completed [facility] 00:00:00 [facility] Hepatitis A Adult 2005-09-20 Completed [facility] 00:00:00 [facility] Hep B, Adol or Pedi 2005-09-20 Completed [facility] rs[facility] of Dosage 00:00:00 [facility] Pneumococcal 13 2005-09-20 Completed [facility] Conjugate, PCV13 00:00:00 [facility] dical (Prevnar 13) Branch Polio (IPV/OPV) 2005-09-20 Completed [facility] 00:00:00 [facility] DTAP 2005-09-20 Completed [facility] 00:00:00 [facility] HIB 3 Dose Schedule 2005-09-20 Completed [facility] of 00:00:00 [facility] Hepatitis A Adult 2005-09-20 Completed [facility] 00:00:00 [facility] Hep B, Adol or Pedi 2005-09-20 Completed [facility] of Dosage 00:00:00 [facility] Pneumococcal 13 2005-09-20 Completed [facility] Conjugate, PCV13 00:00:00 [facility] dical (Prevnar 13) Branch Polio (IPV/OPV) 2005-09-20 Completed [facility] 00:00:00 [facility] DTAP 2005-09-20 Completed [facility] 00:00:00 [facility] HIB 3 Dose Schedule 2005-09-20 Completed [facility] 00:00:00 [facility] Hepatitis A Adult 2005-09-20 Completed [facility] 00:00:00 [facility] Hep B, Adol or Pedi 2005-09-20 Completed [facility] of Dosage 00:00:00 [facility] Pneumococcal 13 2005-09-20 Completed [facility] Conjugate, PCV13 00:00:00 [facility] dical (Prevnar 13) Branch Polio (IPV/OPV) 2005-09-20 Completed [facility] 00:00:00 [facility] DTAP 2005-09-20 Completed [facility] 00:00:00 [facility] HIB 3 Dose Schedule 2005-09-20 Completed [facility] 00:00:00 [facility] Hepatitis A Adult 2005-09-20 Completed [facility] 00:00:00 [facility] Hep B, Adol or Pedi 2005-09-20 Completed [facility] Dosage 00:00:00 [facility] Pneumococcal 13 2005-09-20 Completed [facility] of Conjugate, PCV13 00:00:00 [facility] dical (Prevnar 13) Branch Polio (IPV/OPV) 2005-09-20 Completed [facility] 00:00:00 [facility] DTAP 2005-09-20 Completed [facility] 00:00:00 [facility] HIB 3 Dose Schedule 2005-09-20 Completed [facility] 00:00:00 [facility] Hepatitis A Adult 2005-09-20 Completed [facility] 00:00:00 [facility] Hep B, Adol or Pedi 2005-09-20 Completed [facility] Dosage 00:00:00 [facility] Pneumococcal 13 2005-09-20 Completed [facility] Conjugate, PCV13 00:00:00 [place] [facility] (Prevnar 13) Branch Polio (IPV/OPV) 2005-09-20 Completed [facility] 00:00:00 [facility] DTAP 2005-09-20 Completed [facility] 00:00:00 [facility] HIB 3 Dose Schedule 2005-09-20 Completed [facility] 00:00:00 [facility] Hepatitis A Adult 2005-09-20 Completed [facility] 00:00:00 [facility] Hep B, Adol or Pedi 2005-09-20 Completed [facility] Dosage 00:00:00 [facility] Pneumococcal 13 2005-09-20 Completed [facility] of Conjugate, PCV13 00:00:[address] [facility] dical (Prevnar 13) Branch Polio (IPV/OPV) 2005-09-20 Completed [facility] 00:00:00 [facility] DTAP 2005-09-20 Completed [facility] 00:00:00 [facility] HIB 3 Dose Schedule 2005-09-20 Completed [facility] 00:00:00 [facility] Hepatitis A Adult 2005-09-20 Completed [facility] 00:00:00 [facility] Hep B, Adol or Pedi 2005-09-20 Completed [facility] Dosage 00:00:00 [facility] Pneumococcal 13 2005-09-20 Completed [facility] of Conjugate, PCV13 00:00:[address] [facility] dical (Prevnar 13) Branch Polio (IPV/OPV) 2005-09-20 Completed [facility] 00:00:00 [facility] DTAP 2005-09-20 Completed [facility] 00:00:00 [facility] HIB 3 Dose Schedule 2005-09-20 Completed [facility] 00:00:00 [facility] Hepatitis A Adult 2005-09-20 Completed [facility] 00:00:00 [facility] Hep B, Adol or Pedi 2005-09-20 Completed [facility] Dosage 00:00:00 [facility] Pneumococcal 13 2005-09-20 Completed [facility] Conjugate, PCV13 00:00:[address] [facility] dical (Prevnar 13) Branch Polio (IPV/OPV) 2005-09-20 Completed [facility] 00:00:00 [facility] DTAP 2005-09-20 Completed [facility] 00:00:00 [facility] HIB 3 Dose Schedule 2005-09-20 Completed [facility] 00:00:00 [facility] Hepatitis A Adult 2005-09-20 Completed [facility] 00:00:00 [facility] Hep B, Adol or Pedi 2005-09-20 Completed [facility] Dosage 00:00:00 [facility] Pneumococcal 13 2005-09-20 Completed [facility] of Conjugate, PCV13 00:00:[address] [facility] dical (Prevnar 13) Branch Polio (IPV/OPV) 2005-09-20 Completed [facility] 00:00:00 [facility] DTAP 2005-09-20 Completed [facility] 00:00:00 [facility] HIB 3 Dose Schedule 2005-09-20 Completed [facility] 00:00:00 [facility] Hepatitis A Adult 2005-09-20 Completed [facility] 00:00:00 [facility] Hep B, Adol or Pedi 2005-09-20 Completed [facility] Dosage 00:00:00 [facility] Pneumococcal 13 2005-09-20 Completed [facility] of Conjugate, PCV13 00:00:[address] [facility] dical (Prevnar 13) Branch Polio (IPV/OPV) 2005-09-20 Completed [facility] 00:00:00 [facility] DTAP 2005-09-20 Completed [facility] 00:00:00 [facility] HIB 3 Dose Schedule 2005-09-20 Completed [facility] 00:00:00 [facility] Hepatitis A Adult 2005-09-20 Completed [facility] 00:00:00 [facility] Hep B, Adol or Pedi 2005-09-20 Completed [facility] Dosage 00:00:00 [facility] Pneumococcal 13 2005-09-20 Completed [facility] of Conjugate, PCV13 00:00:[address] [facility] dical (Prevnar 13) Branch Polio (IPV/OPV) 2005-09-20 Completed [facility] 00:00:00 [facility] DTAP 2005-09-20 Completed [facility] of 00:00:00 [facility] HIB 3 Dose Schedule 2005-09-20 Completed [facility] 00:00:00 [facility] Hepatitis A Adult 2005-09-20 Completed [facility] 00:00:00 [facility] Hep B, Adol or Pedi 2005-09-20 Completed [facility] Dosage 00:00:00 [facility] Pneumococcal 13 2005-09-20 Completed [facility] of Conjugate, PCV13 00:00:[address] [facility] dical (Prevnar 13) Branch Polio (IPV/OPV) 2005-09-20 Completed [facility] 00:00:00 [facility] DTAP 2005-09-20 Completed [facility] of 00:00:00 [facility] HIB 3 Dose Schedule 2005-09-20 Completed [facility] 00:00:00 [facility] Hepatitis A Adult 2005-09-20 Completed [facility] 00:00:00 [facility] Hep B, Adol or Pedi 2005-09-20 Completed [facility] Dosage 00:00:00 [facility] Pneumococcal 13 2005-09-20 Completed [facility] of Conjugate, PCV13 00:00:[address] [facility] dical (Prevnar 13) Branch Polio (IPV/OPV) 2005-09-20 Completed [facility] 00:00:00 [facility] DTAP 2005-09-20 Completed [facility] of 00:00:00 [facility] HIB 3 Dose Schedule 2005-09-20 Completed [facility] 00:00:00 [facility] Hepatitis A Adult 2005-09-20 Completed [facility] 00:00:00 [facility] Hep B, Adol or Pedi 2005-09-20 Completed [facility] Dosage 00:00:00 [facility] Pneumococcal 13 2005-09-20 Completed [facility] of Conjugate, PCV13 00:00:[address] [facility] dical (Prevnar 13) Branch Polio (IPV/OPV) 2005-09-20 Completed [facility] 00:00:00 [facility] DTAP 2005-09-20 Completed [facility] of 00:00:00 [facility] HIB 3 Dose Schedule 2005-09-20 Completed [facility] 00:00:00 [facility] Hepatitis A Adult 2005-09-20 Completed [facility] 00:00:00 [facility] Hep B, Adol or Pedi 2005-09-20 Completed [facility] Dosage 00:00:00 [facility] Pneumococcal 13 2005-09-20 Completed [facility] Conjugate, PCV13 00:00:[address] [facility] dical (Prevnar 13) Branch Polio (IPV/OPV) 2005-09-20 Completed [facility] 00:00:00 [facility] DTAP 2005-09-20 Completed [facility] of 00:00:00 [facility] HIB 3 Dose Schedule 2005-09-20 Completed [facility] 00:00:00 [facility] Hepatitis A Adult 2005-09-20 Completed [facility] 00:00:00 [facility] Hep B, Adol or Pedi 2005-09-20 Completed [facility] Dosage 00:00:00 [facility] Pneumococcal 13 2005-09-20 Completed [facility] of Conjugate, PCV13 00:00:[address] [facility] dical (Prevnar 13) Branch Polio (IPV/OPV) 2005-09-20 Completed [facility] 00:00:00 [facility] DTAP 2005-09-20 Completed [facility] 00:00:00 [facility] HIB 3 Dose Schedule 2005-09-20 Completed [facility] 00:00:00 [facility] Hepatitis A Adult 2005-09-20 Completed [facility] 00:00:00 [facility] Hep B, Adol or Pedi 2005-09-20 Completed [facility] Dosage 00:00:00 [facility] Pneumococcal 13 2005-09-20 Completed [facility] of Conjugate, PCV13 00:00:[address] [facility] dical (Prevnar 13) Branch Polio (IPV/OPV) 2005-09-20 Completed [facility] 00:00:00 [facility] DTAP 2005-09-20 Completed [facility] of 00:00:00 [facility] HIB 3 Dose Schedule 2005-09-20 Completed [facility] 00:00:00 [facility] Hepatitis A Adult 2005-09-20 Completed [facility] 00:00:00 [facility] Hep B, Adol or Pedi 2005-09-20 Completed [facility] Dosage 00:00:00 [facility] Pneumococcal 13 2005-09-20 Completed [facility] of Conjugate, PCV13 00:00:[address] [facility] dical (Prevnar 13) Branch Polio (IPV/OPV) 2005-09-20 Completed [facility] 00:00:00 [facility] DTaP, Unspecified 2005-09-20 Completed [facility] of Formulation 00:00:00 [facility] HEPATITIS A 2005-09-20 Completed [facility] of 00:00:00 [facility] HIB 4 Dose Schedule 2005-09-20 Completed [facility] 00:00:00 [facility] Pneumococcal 7 2005-09-20 Completed [facility] of Conjugate, PCV7 00:00:00 [place] [facility] (Prevnar7) Branch IPV 2005-09-20 Completed [facility] of 00:00:00 [facility] DTAP 2005-09-20 Completed [facility] of 00:00:00 [facility] HIB 3 Dose Schedule 2005-09-20 Completed [facility] 00:00:00 [facility] Hepatitis A Adult 2005-09-20 Completed [facility] 00:00:00 [facility] Hep B, Adol or Pedi 2005-09-20 Completed [facility] Dosage 00:00:00 [facility] Pneumococcal 13 2005-09-20 Completed [facility] of Conjugate, PCV13 00:00:[address] [facility] dicny (Prevnar 13) Branch Polio (IPV/OPV) 2005-09-20 Completed [facility] 00:00:00 [facility] DTaP, Unspecified 2005-09-20 Completed [facility] Formulation 00:00:00 [facility] HEPATITIS A 2005-09-20 Completed [facility] of 00:00:00 [facility] HIB 4 Dose Schedule 2005-09-20 Completed [facility] 00:00:00 [facility] Pneumococcal 7 2005-09-20 Completed [facility] of Conjugate, PCV7 00:00:00 [place] [facility] (Prevnar7) Branch IPV 2005-09-20 Completed [facility] of 00:00:00 [facility] DTAP 2005-09-20 Completed [facility] of 00:00:00 [facility] HIB 3 Dose Schedule 2005-09-20 Completed [facility] 00:00:00 [facility] Hepatitis A Adult 2005-09-20 Completed [facility] 00:00:00 [facility] Hep B, Adol or Pedi 2005-09-20 Completed [facility] Dosage 00:00:00 [facility] Pneumococcal 13 2005-09-20 Completed [facility] of Conjugate, PCV13 00:00:[address] [facility] dical (Prevnar 13) Branch Polio (IPV/OPV) 2005-09-20 Completed [facility] 00:00:00 [facility] DTaP, Unspecified 2005-09-20 Completed [facility] Formulation 00:00:00 [facility] HEPATITIS A 2005-09-20 Completed [facility] of 00:00:00 [facility] HIB 4 Dose Schedule 2005-09-20 Completed [facility] 00:00:00 [facility] Pneumococcal 7 2005-09-20 Completed [facility] of Conjugate, PCV7 00:00:00 [place] [facility] (Prevnar7) Branch IPV 2005-09-20 Completed [facility] 00:00:00 [facility] DTAP 2005-09-20 Completed [facility] 00:00:00 [facility] HIB 3 Dose Schedule 2005-09-20 Completed [facility] 00:00:00 [facility] Hepatitis A Adult 2005-09-20 Completed [facility] 00:00:00 [facility] Hep B, Adol or Pedi 2005-09-20 Completed [facility] Dosage 00:00:00 [facility] Pneumococcal 13 2005-09-20 Completed [facility] of Conjugate, PCV13 00:00:00 [facility] (Prevnar 13) Branch Polio (IPV/OPV) 2005-09-20 Completed [facility] 00:00:00 [facility] DTaP, Unspecified 2005-09-20 Completed [facility] Formulation 00:00:00 [facility] HEPATITIS A 2005-09-20 Completed [facility] of 00:00:00 [facility] HIB 4 Dose Schedule 2005-09-20 Completed [facility] 00:00:00 [facility] Pneumococcal 7 2005-09-20 Completed [facility] of Conjugate, PCV7 00:00:00 [place] [facility] (Prevnar7) Branch IPV 2005-09-20 Completed [facility] 00:00:00 [facility] DTAP 2005-09-20 Completed [facility] of 00:00:00 [facility] HIB 3 Dose Schedule 2005-09-20 Completed [facility] 00:00:00 [facility] Hepatitis A Adult 2005-09-20 Completed [facility] 00:00:00 [facility] Hep B, Adol or Pedi 2005-09-20 Completed [facility] Dosage 00:00:00 [facility] Pneumococcal 13 2005-09-20 Completed [facility] of Conjugate, PCV13 00:00:[address] [facility] dical (Prevnar 13) Branch Polio (IPV/OPV) 2005-09-20 Completed [facility] 00:00:00 [facility] DTaP, Unspecified 2005-09-20 Completed [facility] Formulation 00:00:00 [facility] HEPATITIS A 2005-09-20 Completed [facility] of 00:00:00 [facility] HIB 4 Dose Schedule 2005-09-20 Completed [facility] 00:00:00 [facility] Pneumococcal 7 2005-09-20 Completed [facility] of Conjugate, PCV7 00:00:00 [place] [facility] (Prevnar7) Branch IPV 2005-09-20 Completed [facility] 00:00:00 [facility] DTAP 2005-09-20 Completed [facility] of 00:00:00 [facility] HIB 3 Dose Schedule 2005-09-20 Completed [facility] 00:00:00 [facility] Hepatitis A Adult 2005-09-20 Completed [facility] 00:00:00 [facility] Hep B, Adol or Pedi 2005-09-20 Completed [facility] of Dosage 00:00:00 [facility] Pneumococcal 13 2005-09-20 Completed [facility] of Conjugate, PCV13 00:00:00 [facility] (Prevnar 13) Branch Polio (IPV/OPV) 2005-09-20 Completed [facility] 00:00:00 [facility] DTaP, Unspecified 2005-09-20 Completed [facility] Formulation 00:00:00 [facility] HEPATITIS A 2005-09-20 Completed [facility] 00:00:00 [facility] HIB 4 Dose Schedule 2005-09-20 Completed [facility] 00:00:00 [facility] Pneumococcal 7 2005-09-20 Completed [facility] of Conjugate, PCV7 00:00:00 [place] [facility] (Prevnar7) Branch IPV 2005-09-20 Completed [facility] 00:00:00 [facility] DTAP 2005-09-20 Completed [facility] of 00:00:00 [facility] HIB 3 Dose Schedule 2005-09-20 Completed [facility] 00:00:00 [facility] Hepatitis A Adult 2005-09-20 Completed [facility] 00:00:00 [facility] Hep B, Adol or Pedi 2005-09-20 Completed [facility] Dosage 00:00:00 [facility] Pneumococcal 13 2005-09-20 Completed [facility] of Conjugate, PCV13 00:00:[address] [facility] dical (Prevnar 13) Branch Polio (IPV/OPV) 2005-09-20 Completed [facility] 00:00:00 [facility] DTaP, Unspecified 2005-09-20 Completed [facility] Formulation 00:00:00 [facility] HEPATITIS A 2005-09-20 Completed [facility] of 00:00:00 [facility] HIB 4 Dose Schedule 2005-09-20 Completed [facility] 00:00:00 [facility] Pneumococcal 7 2005-09-20 Completed [facility] of Conjugate, PCV7 00:00:00 [place] [facility] (Prevnar7) Branch IPV 2005-09-20 Completed [facility] 00:00:00 [facility] DTAP 2005-09-20 Completed [facility] of 00:00:00 [facility] HIB 3 Dose Schedule 2005-09-20 Completed [facility] 00:00:00 [facility] Hepatitis A Adult 2005-09-20 Completed [facility] 00:00:00 [facility] Hep B, Adol or Pedi 2005-09-20 Completed [facility] of Dosage 00:00:00 [facility] Pneumococcal 13 2005-09-20 Completed [facility] of Conjugate, PCV13 00:00:00 [facility] (Prevnar 13) [place] Polio (IPV/OPV) 2005-09-20 Completed [facility] 00:00:00 [facility] DTaP, Unspecified 2005-09-20 Completed [facility] Formulation 00:00:00 [facility] HEPATITIS A 2005-09-20 Completed [facility] of 00:00:00 [facility] HIB 4 Dose Schedule 2005-09-20 Completed [facility] 00:00:00 [facility] Pneumococcal 7 2005-09-20 Completed [facility] of Conjugate, PCV7 00:00:00 [place] [facility] (Prevnar7) Branch IPV 2005-09-20 Completed [facility] 00:00:00 [facility] DTAP 2005-09-20 Completed [facility] 00:00:00 [facility] HIB 3 Dose Schedule 2005-09-20 Completed [facility] 00:00:00 [facility] Hepatitis A Adult 2005-09-20 Completed [facility] 00:00:00 [facility] Hep B, Adol or Pedi 2005-09-20 Completed [facility] of Dosage 00:00:00 [facility] Pneumococcal 13 2005-09-20 Completed [facility] of Conjugate, PCV13 00:00:[address] [facility] dical (Prevnar 13) [place] Polio (IPV/OPV) 2005-09-20 Completed [facility] 00:00:00 [facility] DTaP, Unspecified 2005-09-20 Completed [facility] Formulation 00:00:00 [facility] HEPATITIS A 2005-09-20 Completed [facility] of 00:00:00 [facility] HIB 4 Dose Schedule 2005-09-20 Completed [facility] 00:00:00 [facility] Pneumococcal 7 2005-09-20 Completed [facility] of Conjugate, PCV7 00:00:00 [place] [facility] (Prevnar7) Branch IPV 2005-09-20 Completed [facility] of 00:00:00 [facility] DTAP 2005-09-20 Completed [facility] 00:00:00 [facility] HIB 3 Dose Schedule 2005-09-20 Completed [facility] 00:00:00 [facility] Hepatitis A Adult 2005-09-20 Completed [facility] 00:00:00 [facility] Hep B, Adol or Pedi 2005-09-20 Completed [facility] of Dosage 00:00:00 [facility] Pneumococcal 13 2005-09-20 Completed [facility] Conjugate, PCV13 00:00:00 [facility] (Prevnar 13) [place] Polio (IPV/OPV) 2005-09-20 Completed [facility] 00:00:00 [facility] DTaP, Unspecified 2005-09-20 Completed [facility] Formulation 00:00:00 [facility] HEPATITIS A 2005-09-20 Completed [facility] 00:00:00 [facility] HIB 4 Dose Schedule 2005-09-20 Completed [facility] 00:00:00 [facility] Pneumococcal 7 2005-09-20 Completed [facility] of Conjugate, PCV7 00:00:00 [place] [facility] (Prevnar7) Branch IPV 2005-09-20 Completed [facility] 00:00:00 [facility] DTAP 2005-09-20 Completed [facility] 00:00:00 [facility] HIB 3 Dose Schedule 2005-09-20 Completed [facility] 00:00:00 [facility] Hepatitis A Adult 2005-09-20 Completed [facility] 00:00:00 [facility] Hep B, Adol or Pedi 2005-09-20 Completed [facility] Dosage 00:00:00 [facility] Pneumococcal 13 2005-09-20 Completed [facility] of Conjugate, PCV13 00:00:[address] [facility] dical (Prevnar 13) Branch Polio (IPV/OPV) 2005-09-20 Completed [facility] 00:00:00 [facility] DTaP, Unspecified 2005-09-20 Completed [facility] Formulation 00:00:00 [facility] HEPATITIS A 2005-09-20 Completed [facility] 00:00:00 [facility] HIB 4 Dose Schedule 2005-09-20 Completed [facility] 00:00:00 [facility] Pneumococcal 7 2005-09-20 Completed [facility] of Conjugate, PCV7 00:00:00 [place] [facility] (Prevnar7) Branch IPV 2005-09-20 Completed [facility] 00:00:00 [facility] DTAP 2005-09-20 Completed [facility] 00:00:00 [facility] HIB 3 Dose Schedule 2005-09-20 Completed [facility] 00:00:00 [facility] Hepatitis A Adult 2005-09-20 Completed [facility] 00:00:00 [facility] Hep B, Adol or Pedi 2005-09-20 Completed [facility] of Dosage 00:00:00 [facility] Pneumococcal 13 2005-09-20 Completed [facility] of Conjugate, PCV13 00:00:[address] [facility] dicny (Prevnar 13) Branch Polio (IPV/OPV) 2005-09-20 Completed [facility] 00:00:00 [facility] DTaP, Unspecified 2005-09-20 Completed [facility] Formulation 00:00:00 [facility] HEPATITIS A 2005-09-20 Completed [facility] 00:00:00 [facility] HIB 4 Dose Schedule 2005-09-20 Completed [facility] 00:00:00 [facility] Pneumococcal 7 2005-09-20 Completed [facility] of Conjugate, PCV7 00:00:00 [place] [facility] (Prevnar7) Branch IPV 2005-09-20 Completed [facility] 00:00:00 [facility] DTAP 2005-09-20 Completed [facility] 00:00:00 [facility] HIB 3 Dose Schedule 2005-09-20 Completed [facility] 00:00:00 [facility] Hepatitis A Adult 2005-09-20 Completed [facility] 00:00:00 [facility] Hep B, Adol or Pedi 2005-09-20 Completed [facility] of Dosage 00:00:00 [facility] Pneumococcal 13 2005-09-20 Completed [facility] Conjugate, PCV13 00:00:00 [place] [facility] (Prevnar 13) Branch Polio (IPV/OPV) 2005-09-20 Completed [facility] 00:00:00 [facility] DTaP, Unspecified 2005-09-20 Completed [facility] Formulation 00:00:00 [facility] HEPATITIS A 2005-09-20 Completed [facility] 00:00:00 [facility] HIB 4 Dose Schedule 2005-09-20 Completed [facility] 00:00:00 [facility] Pneumococcal 7 2005-09-20 Completed [facility] Conjugate, PCV7 00:00:00 [place] [facility] (Prevnar7) Branch IPV 2005-09-20 Completed [facility] 00:00:00 [facility] DTAP 2005-09-20 Completed [facility] 00:00:00 [facility] HIB 3 Dose Schedule 2005-09-20 Completed [facility] 00:00:00 [facility] Hepatitis A Adult 2005-09-20 Completed [facility] 00:00:00 [facility] Hep B, Adol or Pedi 2005-09-20 Completed [facility] of Dosage 00:00:00 [facility] Pneumococcal 13 2005-09-20 Completed [facility] of Conjugate, PCV13 00:00:[address] [facility] dical (Prevnar 13) Branch Polio (IPV/OPV) 2005-09-20 Completed [facility] 00:00:00 [facility] DTaP, Unspecified 2005-09-20 Completed [facility] Formulation 00:00:00 [facility] HEPATITIS A 2005-09-20 Completed [facility] 00:00:00 [facility] HIB 4 Dose Schedule 2005-09-20 Completed [facility] 00:00:00 [facility] Pneumococcal 7 2005-09-20 Completed [facility] Conjugate, PCV7 00:00:00 [place] [facility] (Prevnar7) Branch IPV 2005-09-20 Completed [facility] 00:00:00 [facility] DTAP 2005-09-20 Completed [facility] 00:00:00 [facility] HIB 3 Dose Schedule 2005-09-20 Completed [facility] 00:00:00 [facility] Hepatitis A Adult 2005-09-20 Completed [facility] 00:00:00 [facility] Hep B, Adol or Pedi 2005-09-20 Completed [facility] of Dosage 00:00:00 [facility] Pneumococcal 13 2005-09-20 Completed [facility] Conjugate, PCV13 00:00:00 [place] [facility] (Prevnar 13) Branch Polio (IPV/OPV) 2005-09-20 Completed [facility] 00:00:00 [facility] DTaP, Unspecified 2005-09-20 Completed [facility] Formulation 00:00:00 [facility] HEPATITIS A 2005-09-20 Completed [facility] 00:00:00 [facility] HIB 4 Dose Schedule 2005-09-20 Completed [facility] 00:00:00 [facility] Pneumococcal 7 2005-09-20 Completed [facility] Conjugate, PCV7 00:00:00 [place] [facility] (Prevnar7) Branch IPV 2005-09-20 Completed [facility] 00:00:00 [facility] DTAP 2005-09-20 Completed [facility] 00:00:00 [facility] HIB 3 Dose Schedule 2005-09-20 Completed [facility] of 00:00:00 [facility] Hepatitis A Adult 2005-09-20 Completed [facility] 00:00:00 [facility] Hep B, Adol or Pedi 2005-09-20 Completed [facility] of Dosage 00:00:00 [facility] Pneumococcal 13 2005-09-20 Completed Universit y of Conjugate, PCV13 00:00:00 [facility] dical (Prevnar 13) Branch Polio (IPV/OPV) 2005-09-20 Completed [facility] 00:00:00 [facility] DTaP, Unspecified 2005-09-20 Completed [facility] ity of Formulation 00:00:00 [facility] HEPATITIS A 2005-09-20 Completed [facility] 00:00:00 [facility] HIB 4 Dose Schedule 2005-09-20 Completed [facility] rsity of 00:00:00 [facility] Pneumococcal 7 2005-09-20 Completed [facility] of Conjugate, PCV7 00:00:00 [place] [facility] (Prevnar7) [facility] IPV 2005-09-20 Completed [facility] 00:00:00 [facility] DTAP 2005-09-20 Completed [facility] 00:00:00 [facility] HIB 3 Dose Schedule 2005-09-20 Completed [facility] of 00:00:00 [facility] Hepatitis A Adult 2005-09-20 Completed [facility] 00:00:00 [facility] Hep B, Adol or Pedi 2005-09-20 Completed [facility] rs[facility] of Dosage 00:00:00 [facility] Pneumococcal 13 2005-09-20 Completed [facility] of Conjugate, PCV13 00:00:[address] [facility] dical (Prevnar 13) Branch Polio (IPV/OPV) 2005-09-20 Completed [facility] of 00:00:00 [facility] DTaP, Unspecified 2005-09-20 Completed [facility] ity of Formulation 00:00:00 [facility] HEPATITIS A 2005-09-20 Completed [facility] 00:00:00 [facility] HIB 4 Dose Schedule 2005-09-20 Completed [facility]ive rsity of 00:00:00 [facility] Pneumococcal 7 2005-09-20 Completed [facility] of Conjugate, PCV7 00:00:00 [facility] ical (Prevnar7) Branch IPV 2005-09-20 Completed [facility] of 00:00:00 [facility] DTAP 2005-09-20 Completed [facility] 00:00:00 [facility] HIB 3 Dose Schedule 2005-09-20 Completed [facility]ive rsity of 00:00:00 [facility] Hepatitis A Adult 2005-09-20 Completed [facility] of 00:00:00 [facility] Hep B, Adol or Pedi 2005-09-20 Completed [facility] rs[facility] of Dosage 00:00:00 [facility] Pneumococcal 13 2005-09-20 Completed [facility] of Conjugate, PCV13 00:00:[address] [facility] dical (Prevnar 13) Branch Polio (IPV/OPV) 2005-09-20 Completed [facility] 00:00:00 [facility] DTaP, Unspecified 2005-09-20 Completed [facility] ity of Formulation 00:00:00 [facility] HEPATITIS A 2005-09-20 Completed [facility] of 00:00:00 [facility] HIB 4 Dose Schedule 2005-09-20 Completed [facility]ive rsity of 00:00:00 [facility] Pneumococcal 7 2005-09-20 Completed [facility] of Conjugate, PCV7 00:00:00 [facility] ical (Prevnar7) Branch IPV 2005-09-20 Completed [facility] of 00:00:00 [facility] DTAP 2005-09-20 Completed [facility] 00:00:00 [facility] HIB 3 Dose Schedule 2005-09-20 Completed [facility]ive rsity of 00:00:00 [facility] Hepatitis A Adult 2005-09-20 Completed [facility] of 00:00:00 [facility] Hep B, Adol or Pedi 2005-09-20 Completed [facility] of Dosage 00:00:00 [facility] Pneumococcal 13 2005-09-20 Completed [facility] of Conjugate, PCV13 00:00:00 [facility] dical (Prevnar 13) Branch Polio (IPV/OPV) 2005-09-20 Completed [facility] of 00:00:00 [facility] DTaP, Unspecified 2005-09-20 Completed [facility] ity of Formulation 00:00:00 [facility] HEPATITIS A 2005-09-20 Completed [facility] of 00:00:00 [facility] HIB 4 Dose Schedule 2005-09-20 Completed [facility]ive rsity of 00:00:00 [facility] Pneumococcal 7 2005-09-20 Completed [facility] of Conjugate, PCV7 00:00:00 [facility] ical (Prevnar7) Branch IPV 2005-09-20 Completed [facility] of 00:00:00 [facility] DTAP 2005-09-20 Completed [facility] 00:00:00 [facility] HIB 3 Dose Schedule 2005-09-20 Completed [facility]ive rsity of 00:00:00 [facility] Hepatitis A Adult 2005-09-20 Completed [facility] of 00:00:00 [facility] Hep B, Adol or Pedi 2005-09-20 Completed [facility] rs[facility] of Dosage 00:00:00 [facility] Pneumococcal 13 2005-09-20 Completed [facility]it [facility] of Conjugate, PCV13 00:00:[address] [facility] dical (Prevnar 13) Branch Polio (IPV/OPV) 2005-09-20 Completed [facility] of 00:00:00 [facility] DTaP, Unspecified 2005-09-20 Completed [facility] ity of Formulation 00:00:00 [facility] HEPATITIS A 2005-09-20 Completed [facility] 00:00:00 [facility] HIB 4 Dose Schedule 2005-09-20 Completed [facility]ive rsity of 00:00:00 [facility] Pneumococcal 7 2005-09-20 Completed [facility] of Conjugate, PCV7 00:00:00 [place] [facility] (Prevnar7) Branch IPV 2005-09-20 Completed [facility] 00:00:00 [facility] DTAP 2005-09-20 Completed [facility] 00:00:00 [facility] HIB 3 Dose Schedule 2005-09-20 Completed [facility]ive rsity of 00:00:00 [facility] Hepatitis A Adult 2005-09-20 Completed [facility] of 00:00:00 [facility] Hep B, Adol or Pedi 2005-09-20 Completed [facility]ive rs[facility] of Dosage 00:00:00 [facility] Pneumococcal 13 2005-09-20 Completed [facility]it [facility] of Conjugate, PCV13 00:00:00 [facility] dical (Prevnar 13) Branch Polio (IPV/OPV) 2005-09-20 Completed [facility] of 00:00:00 [facility] DTaP, Unspecified 2005-09-20 Completed [facility] ity of Formulation 00:00:00 [facility] HEPATITIS A 2005-09-20 Completed [facility] of 00:00:00 [facility] HIB 4 Dose Schedule 2005-09-20 Completed [facility]ive rsity of 00:00:00 [facility] Pneumococcal 7 2005-09-20 Completed [facility] of Conjugate, PCV7 00:00:00 [facility] ical (Prevnar7) Branch IPV 2005-09-20 Completed [facility] of 00:00:00 [facility] DTAP 2005-09-20 Completed [facility] 00:00:00 [facility] HIB 3 Dose Schedule 2005-09-20 Completed [facility]ive rsity of 00:00:00 [facility] Hepatitis A Adult 2005-09-20 Completed [facility] of 00:00:00 [facility] Hep B, Adol or Pedi 2005-09-20 Completed [facility] rs[facility] of Dosage 00:00:00 [facility] Pneumococcal 13 2005-09-20 Completed [facility] of Conjugate, PCV13 00:00:[address] [facility] dical (Prevnar 13) Branch Polio (IPV/OPV) 2005-09-20 Completed [facility] of 00:00:00 [facility] DTaP, Unspecified 2005-09-20 Completed [facility] ity of Formulation 00:00:00 [facility] HEPATITIS A 2005-09-20 Completed [facility] 00:00:00 [facility] HIB 4 Dose Schedule 2005-09-20 Completed [facility]ive rsity of 00:00:00 [facility] Pneumococcal 7 2005-09-20 Completed [facility] of Conjugate, PCV7 00:00:00 [place] [facility] (Prevnar7) Branch IPV 2005-09-20 Completed [facility] of 00:00:00 [facility] DTAP 2005-09-20 Completed [facility] of 00:00:00 [facility] HIB 3 Dose Schedule 2005-09-20 Completed [facility]ive rsity of 00:00:00 [facility] Hepatitis A Adult 2005-09-20 Completed [facility] of 00:00:00 [facility] Hep B, Adol or Pedi 2005-09-20 Completed [facility]ive rs[facility] of Dosage 00:00:00 [facility] Pneumococcal 13 2005-09-20 Completed [facility] of Conjugate, PCV13 00:00:[address] [facility] dical (Prevnar 13) Branch Polio (IPV/OPV) 2005-09-20 Completed [facility] of 00:00:00 [facility] DTaP, Unspecified 2005-09-20 Completed [facility] ity of Formulation 00:00:00 [facility] HEPATITIS A 2005-09-20 Completed [facility] of 00:00:00 [facility] HIB 4 Dose Schedule 2005-09-20 Completed [facility]ive rsity of 00:00:00 [facility] Pneumococcal 7 2005-09-20 Completed [facility] of Conjugate, PCV7 00:00:00 [facility] ical (Prevnar7) Branch IPV 2005-09-20 Completed [facility] of 00:00:00 [facility] DTAP 2005-09-20 Completed [facility] 00:00:00 [facility] HIB 3 Dose Schedule 2005-09-20 Completed [facility]ive rsity of 00:00:00 [facility] Hepatitis A Adult 2005-09-20 Completed [facility] of 00:00:00 [facility] Hep B, Adol or Pedi 2005-09-20 Completed [facility]ive rsity of Dosage 00:00:00 [facility] Pneumococcal 13 2005-09-20 Completed [facility]it [facility] of Conjugate, PCV13 00:00:00 [facility] dical (Prevnar 13) Branch Polio (IPV/OPV) 2005-09-20 Completed [facility] of 00:00:00 [facility] DTaP, Unspecified 2005-09-20 Completed [facility] ity of Formulation 00:00:00 [facility] HEPATITIS A 2005-09-20 Completed [facility] 00:00:00 [facility] HIB 4 Dose Schedule 2005-09-20 Completed [facility]ive rsity of 00:00:00 [facility] Pneumococcal 7 2005-09-20 Completed [facility] of Conjugate, PCV7 00:00:00 [place] [facility] (Prevnar7) Branch IPV 2005-09-20 Completed [facility] 00:00:00 [facility] DTAP 2005-09-20 Completed [facility] 00:00:00 [facility] HIB 3 Dose Schedule 2005-09-20 Completed [facility]ive rsity of 00:00:00 [facility] Hepatitis A Adult 2005-09-20 Completed [facility] of 00:00:00 [facility] Hep B, Adol or Pedi 2005-09-20 Completed [facility]ive rsity of Dosage 00:00:00 [facility] Pneumococcal 13 2005-09-20 Completed [facility] of Conjugate, PCV13 00:00:00 [facility] dical (Prevnar 13) Branch Polio (IPV/OPV) 2005-09-20 Completed [facility] of 00:00:00 [facility] DTaP, Unspecified 2005-09-20 Completed [facility] ity of Formulation 00:00:00 [facility] HEPATITIS A 2005-09-20 Completed [facility] 00:00:00 [facility] HIB 4 Dose Schedule 2005-09-20 Completed [facility]ive rsity of 00:00:00 [facility] Pneumococcal 7 2005-09-20 Completed [facility] of Conjugate, PCV7 00:00:00 [facility] ical (Prevnar7) Branch IPV 2005-09-20 Completed [facility] of 00:00:00 [facility] DTAP 2005-09-20 Completed [facility] 00:00:00 [facility] HIB 3 Dose Schedule 2005-09-20 Completed [facility]ive rsity of 00:00:00 [facility] Hepatitis A Adult 2005-09-20 Completed [facility] of 00:00:00 [facility] Hep B, Adol or Pedi 2005-09-20 Completed [facility]ive rsity of Dosage 00:00:00 [facility] Pneumococcal 13 2005-09-20 Completed [facility] of Conjugate, PCV13 00:00:00 [facility] dical (Prevnar 13) Branch Polio (IPV/OPV) 2005-09-20 Completed [facility] of 00:00:00 [facility] DTaP, Unspecified 2005-09-20 Completed [facility] of Formulation 00:00:00 [facility] HEPATITIS A 2005-09-20 Completed [facility] 00:00:00 [facility] HIB 4 Dose Schedule 2005-09-20 Completed [facility]ive rsity of 00:00:00 [facility] Pneumococcal 7 2005-09-20 Completed [facility] of Conjugate, PCV7 00:00:00 [place] [facility] (Prevnar7) Branch IPV 2005-09-20 Completed [facility] 00:00:00 [facility] DTAP 2004-07-22 Completed [facility] 00:00:00 [facility] Hep B, Adol or Pedi 2004-07-22 Completed [facility]ive rsity of Dosage 00:00:00 [facility] MMR 2004-07-22 Completed [facility] 00:00:00 [facility] Polio (IPV/OPV) 2004-07-22 Completed [facility] 00:00:00 [facility] Varicella 2004-07-22 Completed [facility] of (varivax)(chicken 00:00:00 [place] [facility] pox) [facility] DTAP 2004-07-22 Completed [facility] 00:00:00 [facility] Hep B, Adol or Pedi 2004-07-22 Completed [facility] of Dosage 00:00:00 [facility] MMR 2004-07-22 Completed [facility] 00:00:00 [facility] Polio (IPV/OPV) 2004-07-22 Completed [facility] 00:00:00 [facility] Varicella 2004-07-22 Completed [facility] (varivax)(chicken 00:00:00 [place] [facility] pox) [facility] DTAP 2004-07-22 Completed [facility] 00:00:00 [facility] Hep B, Adol or Pedi 2004-07-22 Completed [facility] of Dosage 00:00:00 [facility] MMR 2004-07-22 Completed [facility] 00:00:00 [facility] Polio (IPV/OPV) 2004-07-22 Completed [facility] of 00:00:00 [facility] Varicella 2004-07-22 Completed [facility] of (varivax)(chicken 00:00:00 [facility] edical pox) Branch DTAP 2004-07-22 Completed [facility] of 00:00:00 [facility] Hep B, Adol or Pedi 2004-07-22 Completed [facility] rs[facility] of Dosage 00:00:00 [facility] MMR 2004-07-22 Completed [facility] 00:00:00 [facility] Polio (IPV/OPV) 2004-07-22 Completed [facility] 00:00:00 [facility] Varicella 2004-07-22 Completed [facility] (varivax)(chicken 00:00:00 [place] [facility] pox) [facility] DTAP 2004-07-22 Completed [facility] 00:00:00 [facility] Hep B, Adol or Pedi 2004-07-22 Completed [facility] of Dosage 00:00:00 [facility] MMR 2004-07-22 Completed [facility] 00:00:00 [facility] Polio (IPV/OPV) 2004-07-22 Completed [facility] 00:00:00 [facility] Varicella 2004-07-22 Completed [facility] (varivax)(chicken 00:00:00 [place] [facility] pox) [facility] DTAP 2004-07-22 Completed [facility] 00:00:00 [facility] Hep B, Adol or Pedi 2004-07-22 Completed [facility] of Dosage 00:00:00 [facility] MMR 2004-07-22 Completed [facility] 00:00:00 [facility] Polio (IPV/OPV) 2004-07-22 Completed [facility] 00:00:00 [facility] Varicella 2004-07-22 Completed [facility] of (varivax)(chicken 00:00:00 [facility] edical pox) Branch DTAP 2004-07-22 Completed [facility] 00:00:00 [facility] Hep B, Adol or Pedi 2004-07-22 Completed [facility] of Dosage 00:00:00 [facility] MMR 2004-07-22 Completed [facility] 00:00:00 [facility] Polio (IPV/OPV) 2004-07-22 Completed [facility] 00:00:00 [facility] Varicella 2004-07-22 Completed [facility] (varivax)(chicken 00:00:00 [place] [facility] pox) [facility] DTAP 2004-07-22 Completed [facility] 00:00:00 [facility] Hep B, Adol or Pedi 2004-07-22 Completed [facility] of Dosage 00:00:00 [facility] MMR 2004-07-22 Completed [facility] 00:00:00 [facility] Polio (IPV/OPV) 2004-07-22 Completed [facility] 00:00:00 [facility] Varicella 2004-07-22 Completed [facility] (varivax)(chicken 00:00:00 [place] [facility] pox) [facility] DTAP 2004-07-22 Completed [facility] 00:00:00 [facility] Hep B, Adol or Pedi 2004-07-22 Completed [facility] of Dosage 00:00:00 [facility] MMR 2004-07-22 Completed [facility] 00:00:00 [facility] Polio (IPV/OPV) 2004-07-22 Completed [facility] 00:00:00 [facility] Varicella 2004-07-22 Completed [facility] (varivax)(chicken 00:00:00 [place] [facility] pox) [facility] DTAP 2004-07-22 Completed [facility] 00:00:00 [facility] Hep B, Adol or Pedi 2004-07-22 Completed [facility] of Dosage 00:00:00 [facility] MMR 2004-07-22 Completed [facility] 00:00:00 [facility] Polio (IPV/OPV) 2004-07-22 Completed [facility] 00:00:00 [facility] Varicella 2004-07-22 Completed [facility] (varivax)(chicken 00:00:00 [place] [facility] pox) [facility] DTAP 2004-07-22 Completed [facility] 00:00:00 [facility] Hep B, Adol or Pedi 2004-07-22 Completed [facility] of Dosage 00:00:00 [facility] MMR 2004-07-22 Completed [facility] 00:00:00 [facility] Polio (IPV/OPV) 2004-07-22 Completed [facility] 00:00:00 [facility] Varicella 2004-07-22 Completed [facility] (varivax)(chicken 00:00:00 [place] [facility] pox) Branch DTAP 2004-07-22 Completed [facility] 00:00:00 [facility] Hep B, Adol or Pedi 2004-07-22 Completed [facility] of Dosage 00:00:00 [facility] MMR 2004-07-22 Completed [facility] 00:00:00 [facility] Polio (IPV/OPV) 2004-07-22 Completed [facility] 00:00:00 [facility] Varicella 2004-07-22 Completed [facility] (varivax)(chicken 00:00:00 [place] [facility] pox) [facility] DTAP 2004-07-22 Completed [facility] 00:00:00 [facility] Hep B, Adol or Pedi 2004-07-22 Completed [facility] of Dosage 00:00:00 [facility] MMR 2004-07-22 Completed [facility] 00:00:00 [facility] Polio (IPV/OPV) 2004-07-22 Completed [facility] 00:00:00 [facility] Varicella 2004-07-22 Completed [facility] of (varivax)(chicken 00:00:00 [facility] edical pox) Branch DTAP 2004-07-22 Completed [facility] of 00:00:00 [facility] Hep B, Adol or Pedi 2004-07-22 Completed [facility] rs[facility] of Dosage 00:00:00 [facility] MMR 2004-07-22 Completed [facility] of 00:00:00 [facility] Polio (IPV/OPV) 2004-07-22 Completed [facility] 00:00:00 [facility] Varicella 2004-07-22 Completed [facility] of (varivax)(chicken 00:00:00 [facility] edical pox) Branch DTAP 2004-07-22 Completed [facility] of 00:00:00 [facility] Hep B, Adol or Pedi 2004-07-22 Completed [facility] of Dosage 00:00:00 [facility] MMR 2004-07-22 Completed [facility] 00:00:00 [facility] Polio (IPV/OPV) 2004-07-22 Completed [facility] 00:00:00 [facility] Varicella 2004-07-22 Completed [facility] of (varivax)(chicken 00:00:00 [facility] edical pox) Branch DTAP 2004-07-22 Completed [facility] of 00:00:00 [facility] Hep B, Adol or Pedi 2004-07-22 Completed [facility] rs[facility] of Dosage 00:00:00 [facility] MMR 2004-07-22 Completed [facility] 00:00:00 [facility] Polio (IPV/OPV) 2004-07-22 Completed [facility] 00:00:00 [facility] Varicella 2004-07-22 Completed [facility] (varivax)(chicken 00:00:00 [place] [facility] pox) [facility] DTAP 2004-07-22 Completed [facility] 00:00:00 [facility] Hep B, Adol or Pedi 2004-07-22 Completed [facility] rs[facility] of Dosage 00:00:00 [facility] MMR 2004-07-22 Completed [facility] 00:00:00 [facility] Polio (IPV/OPV) 2004-07-22 Completed [facility] 00:00:00 [facility] Varicella 2004-07-22 Completed [facility] (varivax)(chicken 00:00:00 [place] [facility] pox) [facility] DTAP 2004-07-22 Completed [facility] 00:00:00 [facility] Hep B, Adol or Pedi 2004-07-22 Completed [facility] of Dosage 00:00:00 [facility] MMR 2004-07-22 Completed [facility] 00:00:00 [facility] Polio (IPV/OPV) 2004-07-22 Completed [facility] 00:00:00 [facility] Varicella 2004-07-22 Completed [facility] (varivax)(chicken 00:00:00 [place] [facility] pox) Branch DTAP 2004-07-22 Completed [facility] 00:00:00 [facility] Hep B, Adol or Pedi 2004-07-22 Completed [facility] of Dosage 00:00:00 [facility] MMR 2004-07-22 Completed [facility] 00:00:00 [facility] Polio (IPV/OPV) 2004-07-22 Completed [facility] 00:00:00 [facility] Varicella 2004-07-22 Completed [facility] of (varivax)(chicken 00:00:00 [place] [facility] pox) Branch DTAP 2004-07-22 Completed [facility] 00:00:00 [facility] Hep B, Adol or Pedi 2004-07-22 Completed [facility] of Dosage 00:00:00 [facility] MMR 2004-07-22 Completed [facility] of 00:00:00 [facility] Polio (IPV/OPV) 2004-07-22 Completed [facility] 00:00:00 [facility] Varicella 2004-07-22 Completed [facility] (varivax)(chicken 00:00:00 [place] [facility] pox) Branch DTAP 2004-07-22 Completed [facility] 00:00:00 [facility] Hep B, Adol or Pedi 2004-07-22 Completed [facility] of Dosage 00:00:00 [facility] MMR 2004-07-22 Completed [facility] 00:00:00 [facility] Polio (IPV/OPV) 2004-07-22 Completed [facility] 00:00:00 [facility] Varicella 2004-07-22 Completed [facility] (varivax)(chicken 00:00:00 [place] [facility] pox) Branch DTAP 2004-07-22 Completed [facility] 00:00:00 [facility] Hep B, Adol or Pedi 2004-07-22 Completed [facility] of Dosage 00:00:00 [facility] MMR 2004-07-22 Completed [facility] of 00:00:00 [facility] Polio (IPV/OPV) 2004-07-22 Completed [facility] 00:00:00 [facility] Varicella 2004-07-22 Completed [facility] (varivax)(chicken 00:00:00 [place] [facility] pox) Branch DTAP 2004-07-22 Completed [facility] 00:00:00 [facility] Hep B, Adol or Pedi 2004-07-22 Completed [facility] of Dosage 00:00:00 [facility] MMR 2004-07-22 Completed [facility] of 00:00:00 [facility] Polio (IPV/OPV) 2004-07-22 Completed [facility] 00:00:00 [facility] Varicella 2004-07-22 Completed [facility] (varivax)(chicken 00:00:00 [place] [facility] pox) Branch DTAP 2004-07-22 Completed [facility] 00:00:00 [facility] Hep B, Adol or Pedi 2004-07-22 Completed [facility] of Dosage 00:00:00 [facility] MMR 2004-07-22 Completed [facility] 00:00:00 [facility] Polio (IPV/OPV) 2004-07-22 Completed [facility] 00:00:00 [facility] Varicella 2004-07-22 Completed [facility] (varivax)(chicken 00:00:00 [place] [facility] pox) Branch DTAP 2004-07-22 Completed [facility] 00:00:00 [facility] Hep B, Adol or Pedi 2004-07-22 Completed [facility] of Dosage 00:00:00 [facility] MMR 2004-07-22 Completed [facility] of 00:00:00 [facility] Polio (IPV/OPV) 2004-07-22 Completed [facility] 00:00:00 [facility] Varicella 2004-07-22 Completed [facility] (varivax)(chicken 00:00:00 [place] [facility] pox) Branch DTAP 2004-07-22 Completed [facility] 00:00:00 [facility] Hep B, Adol or Pedi 2004-07-22 Completed [facility] of Dosage 00:00:00 [facility] MMR 2004-07-22 Completed [facility] of 00:00:00 [facility] Polio (IPV/OPV) 2004-07-22 Completed [facility] 00:00:00 [facility] Varicella 2004-07-22 Completed [facility] (varivax)(chicken 00:00:00 [place] [facility] pox) [facility] DTAP 2004-07-22 Completed [facility] 00:00:00 [facility] Hep B, Adol or Pedi 2004-07-22 Completed [facility] of Dosage 00:00:00 [facility] MMR 2004-07-22 Completed [facility] 00:00:00 [facility] Polio (IPV/OPV) 2004-07-22 Completed [facility] 00:00[facility]00 [facility] Varicella 2004-07-22 Completed [facility] (varivax)(chicken 00:00:00 [place] [facility] DTAP 2004-07-22 Completed [facility] 00:00:00 [facility] Hep B, Adol or Pedi 2004-07-22 Completed [facility] of Dosage 00:00:00 [facility] MMR 2004-07-22 Completed [facility] 00:00:00 [facility] Polio (IPV/OPV) 2004-07-22 Completed [facility] 00:00:00 [facility] Varicella 2004-07-22 Completed [facility] (varivax)(chicken 00:00:00 [place] [facility] DTAP 2004-07-22 Completed [facility] 00:00:00 [facility] Hep B, Adol or Pedi 2004-07-22 Completed [facility] Dosage 00:00:00 [facility] MMR 2004-07-22 Completed [facility] 00:00:00 [facility] Polio (IPV/OPV) 2004-07-22 Completed [facility] 00:00:00 [facility] Varicella 2004-07-22 Completed [facility] (varivax)(chicken 00:00:00 [place] [facility] DTAP 2004-07-22 Completed [facility] 00:00:00 [facility] Hep B, Adol or Pedi 2004-07-22 Completed [facility] Dosage 00:00:00 [facility] MMR 2004-07-22 Completed [facility] 00:00:00 [facility] Polio (IPV/OPV) 2004-07-22 Completed [facility] 00:00:00 [facility] Varicella 2004-07-22 Completed [facility] (varivax)(chicken 00:00:00 [place] [facility] DTAP 2004-07-22 Completed [facility] 00:00:00 [facility] Hep B, Adol or Pedi 2004-07-22 Completed [facility] Dosage 00:00:00 [facility] MMR 2004-07-22 Completed [facility] 00:00:00 [facility] Polio (IPV/OPV) 2004-07-22 Completed [facility] 00:00:00 [facility] Varicella 2004-07-22 Completed [facility] (varivax)(chicken 00:00:00 [place] [facility] DTAP 2004-07-22 Completed [facility] 00:00:00 [facility] Hep B, Adol or Pedi 2004-07-22 Completed [facility] Dosage 00:00:00 [facility] MMR 2004-07-22 Completed [facility] 00:00:00 [facility] Polio (IPV/OPV) 2004-07-22 Completed [facility] 00:00:00 [facility] Varicella 2004-07-22 Completed [facility] (varivax)(chicken 00:00:00 [place] [facility] DTAP 2004-07-22 Completed [facility] 00:00:00 [facility] Hep B, Adol or Pedi 2004-07-22 Completed [facility] Dosage 00:00:00 [facility] MMR 2004-07-22 Completed [facility] 00:00:00 [facility] Polio (IPV/OPV) 2004-07-22 Completed [facility] 00:00:00 [facility] Varicella 2004-07-22 Completed [facility] (varivax)(chicken 00:00:00 [place] [facility] DTAP 2004-07-22 Completed [facility] 00:00:00 [facility] Hep B, Adol or Pedi 2004-07-22 Completed [facility] Dosage 00:00:00 [facility] MMR 2004-07-22 Completed [facility] 00:00:00 [facility] Polio (IPV/OPV) 2004-07-22 Completed [facility] 00:00:00 [facility] Varicella 2004-07-22 Completed [facility] (varivax)(chicken 00:00:00 [place] [facility] DTAP 2004-07-22 Completed [facility] 00:00:00 [facility] Hep B, Adol or Pedi 2004-07-22 Completed [facility] Dosage 00:00:00 [facility] MMR 2004-07-22 Completed [facility] 00:00:00 [facility] Polio (IPV/OPV) 2004-07-22 Completed [facility] 00:00:00 [facility] Varicella 2004-07-22 Completed [facility] (varivax)(chicken 00:00:00 [facility] edical pox) Branch DTAP 2004-07-22 Completed [facility] of 00:00:00 [facility] Hep B, Adol or Pedi 2004-07-22 Completed [facility] Dosage 00:00:00 [facility] MMR 2004-07-22 Completed [facility] 00:00:00 [facility] Polio (IPV/OPV) 2004-07-22 Completed [facility] 00:00:00 [facility] Varicella 2004-07-22 Completed [facility] (varivax)(chicken 00:00:00 [facility] edical pox) Branch DTAP 2004-07-22 Completed [facility] 00:00:00 [facility] Hep B, Adol or Pedi 2004-07-22 Completed [facility] Dosage 00:00:00 [facility] MMR 2004-07-22 Completed [facility] 00:00:00 [facility] Polio (IPV/OPV) 2004-07-22 Completed [facility] 00:00:00 [facility] Varicella 2004-07-22 Completed [facility] (varivax)(chicken 00:00:00 [facility] edical pox) Branch DTAP 2004-07-22 Completed [facility] 00:00:00 [facility] Hep B, Adol or Pedi 2004-07-22 Completed [facility] of Dosage 00:00:00 [facility] MMR 2004-07-22 Completed [facility] 00:00:00 [facility] Polio (IPV/OPV) 2004-07-22 Completed [facility] 00:00:00 [facility] Varicella 2004-07-22 Completed [facility] (varivax)(chicken 00:00:00 [facility] edical pox) Branch DTaP, Unspecified 2004-07-22 Completed [facility] Formulation 00:00:00 [facility] IPV 2004-07-22 Completed [facility] 00:00:00 [facility] DTAP 2004-07-22 Completed [facility] 00:00:00 [facility] Hep B, Adol or Pedi 2004-07-22 Completed [facility] Dosage 00:00:00 [facility] MMR 2004-07-22 Completed [facility] 00:00:00 [facility] Polio (IPV/OPV) 2004-07-22 Completed [facility] 00:00:00 [facility] Varicella 2004-07-22 Completed [facility] (varivax)(chicken 00:00:00 [facility] edical pox) Branch DTaP, Unspecified 2004-07-22 Completed [facility] Formulation 00:00:00 [facility] IPV 2004-07-22 Completed [facility] of 00:00:00 [facility] DTAP 2004-07-22 Completed [facility] 00:00:00 [facility] Hep B, Adol or Pedi 2004-07-22 Completed [facility] of Dosage 00:00:00 [facility] MMR 2004-07-22 Completed [facility] 00:00:00 [facility] Polio (IPV/OPV) 2004-07-22 Completed [facility] 00:00:00 [facility] Varicella 2004-07-22 Completed [facility] (varivax)(chicken 00:00:00 [facility] edical pox) Branch DTaP, Unspecified 2004-07-22 Completed [facility] Formulation 00:00:00 [facility] IPV 2004-07-22 Completed [facility] of 00:00:00 [facility] DTAP 2004-07-22 Completed [facility] of 00:00:00 [facility] Hep B, Adol or Pedi 2004-07-22 Completed [facility] of Dosage 00:00:00 [facility] MMR 2004-07-22 Completed [facility] 00:00:00 [facility] Polio (IPV/OPV) 2004-07-22 Completed [facility] 00:00:00 [facility] Varicella 2004-07-22 Completed [facility] (varivax)(chicken 00:00:00 [place] [facility] DTaP, Unspecified 2004-07-22 Completed [facility] Formulation 00:00:00 [facility] IPV 2004-07-22 Completed [facility] 00:00:00 [facility] DTAP 2004-07-22 Completed [facility] 00:00:00 [facility] Hep B, Adol or Pedi 2004-07-22 Completed [facility] of Dosage 00:00:00 [facility] MMR 2004-07-22 Completed [facility] 00:00:00 [facility] Polio (IPV/OPV) 2004-07-22 Completed [facility] 00:00:00 [facility] Varicella 2004-07-22 Completed [facility] (varivax)(chicken 00:00:00 [facility] edical pox) Branch DTaP, Unspecified 2004-07-22 Completed [facility] Formulation 00:00:00 [facility] IPV 2004-07-22 Completed [facility] of 00:00:00 [facility] DTAP 2004-07-22 Completed [facility] 00:00:00 [facility] Hep B, Adol or Pedi 2004-07-22 Completed [facility] of Dosage 00:00:00 [facility] MMR 2004-07-22 Completed [facility] 00:00:00 [facility] Polio (IPV/OPV) 2004-07-22 Completed [facility] 00:00:00 [facility] Varicella 2004-07-22 Completed [facility] (varivax)(chicken 00:00:00 [place] [facility] DTaP, Unspecified 2004-07-22 Completed [facility] Formulation 00:00:00 [facility] IPV 2004-07-22 Completed [facility] of 00:00:00 [facility] DTAP 2004-07-22 Completed [facility] 00:00:00 [facility] Hep B, Adol or Pedi 2004-07-22 Completed [facility] of Dosage 00:00:00 [facility] MMR 2004-07-22 Completed [facility] 00:00:00 [facility] Polio (IPV/OPV) 2004-07-22 Completed [facility] 00:00:00 [facility] Varicella 2004-07-22 Completed [facility] (varivax)(chicken 00:00:00 [place] [facility] DTaP, Unspecified 2004-07-22 Completed [facility] Formulation 00:00:00 [facility] IPV 2004-07-22 Completed [facility] 00:00:00 [facility] DTAP 2004-07-22 Completed [facility] 00:00:00 [facility] Hep B, Adol or Pedi 2004-07-22 Completed [facility] of Dosage 00:00:00 [facility] MMR 2004-07-22 Completed [facility] 00:00:00 [facility] Polio (IPV/OPV) 2004-07-22 Completed [facility] 00:00:00 [facility] Varicella 2004-07-22 Completed [facility] (varivax)(chicken 00:00:00 [facility] edical pox) Branch DTaP, Unspecified 2004-07-22 Completed [facility] Formulation 00:00:00 [facility] IPV 2004-07-22 Completed [facility] 00:00:00 [facility] DTAP 2004-07-22 Completed [facility] 00:00:00 [facility] Hep B, Adol or Pedi 2004-07-22 Completed [facility] of Dosage 00:00:00 [facility] MMR 2004-07-22 Completed [facility] 00:00:00 [facility] Polio (IPV/OPV) 2004-07-22 Completed [facility] 00:00:00 [facility] Varicella 2004-07-22 Completed [facility] (varivax)(chicken 00:00:00 [facility] edical pox) Branch DTaP, Unspecified 2004-07-22 Completed [facility] Formulation 00:00:00 [facility] IPV 2004-07-22 Completed [facility] 00:00:00 [facility] DTAP 2004-07-22 Completed [facility] 00:00:00 [facility] Hep B, Adol or Pedi 2004-07-22 Completed [facility] of Dosage 00:00:00 [facility] MMR 2004-07-22 Completed [facility] 00:00:00 [facility] Polio (IPV/OPV) 2004-07-22 Completed [facility] 00:00:00 [facility] Varicella 2004-07-22 Completed [facility] (varivax)(chicken 00:00:00 [place] [facility] DTaP, Unspecified 2004-07-22 Completed [facility] Formulation 00:00:00 [facility] IPV 2004-07-22 Completed [facility] 00:00:00 [facility] DTAP 2004-07-22 Completed [facility] 00:00:00 [facility] Hep B, Adol or Pedi 2004-07-22 Completed [facility] rs[facility] of Dosage 00:00:00 [facility] MMR 2004-07-22 Completed [facility] 00:00:00 [facility] Polio (IPV/OPV) 2004-07-22 Completed [facility] 00:00:00 [facility] Varicella 2004-07-22 Completed [facility] (varivax)(chicken 00:00:00 [place] [facility] DTaP, Unspecified 2004-07-22 Completed [facility] Formulation 00:00:00 [facility] IPV 2004-07-22 Completed [facility] 00:00:00 [facility] DTAP 2004-07-22 Completed [facility] 00:00:00 [facility] Hep B, Adol or Pedi 2004-07-22 Completed [facility] of Dosage 00:00:00 [facility] MMR 2004-07-22 Completed [facility] 00:00:00 [facility] Polio (IPV/OPV) 2004-07-22 Completed [facility] 00:00:00 [facility] Varicella 2004-07-22 Completed [facility] (varivax)(chicken 00:00:00 [place] [facility] DTaP, Unspecified 2004-07-22 Completed [facility] Formulation 00:00:00 [facility] IPV 2004-07-22 Completed [facility] 00:00:00 [facility] DTAP 2004-07-22 Completed [facility] 00:00:00 [facility] Hep B, Adol or Pedi 2004-07-22 Completed [facility] of Dosage 00:00:00 [facility] MMR 2004-07-22 Completed [facility] 00:00:00 [facility] Polio (IPV/OPV) 2004-07-22 Completed [facility] 00:00:00 [facility] Varicella 2004-07-22 Completed [facility] (varivax)(chicken 00:00:00 [place] [facility] DTaP, Unspecified 2004-07-22 Completed [facility] Formulation 00:00:00 [facility] IPV 2004-07-22 Completed [facility] 00:00:00 [facility] DTAP 2004-07-22 Completed [facility] 00:00:00 [place] [facility] Hep B, Adol or Pedi 2004-07-22 Completed [facility] rs[facility] of Dosage 00:00:00 [facility] MMR 2004-07-22 Completed [facility] 00:00:00 [facility] Polio (IPV/OPV) 2004-07-22 Completed [facility] 00:00:00 [facility] Varicella 2004-07-22 Completed [facility] (varivax)(chicken 00:00:00 [place] [facility] DTaP, Unspecified 2004-07-22 Completed [facility] Formulation 00:00:00 [facility] IPV 2004-07-22 Completed [facility] 00:00:00 [facility] DTAP 2004-07-22 Completed [facility] 00:00:00 [facility] Hep B, Adol or Pedi 2004-07-22 Completed [facility] of Dosage 00:00:00 [facility] MMR 2004-07-22 Completed [facility] 00:00:00 [facility] Polio (IPV/OPV) 2004-07-22 Completed [facility] 00:00:00 [facility] Varicella 2004-07-22 Completed [facility] (varivax)(chicken 00:00:00 [place] [facility] DTaP, Unspecified 2004-07-22 Completed [facility] Formulation 00:00:00 [facility] IPV 2004-07-22 Completed [facility] 00:00:00 [facility] DTAP 2004-07-22 Completed [facility] 00:00:00 [facility] Hep B, Adol or Pedi 2004-07-22 Completed [facility] rs[facility] of Dosage 00:00:00 [facility] MMR 2004-07-22 Completed [facility] 00:00:00 [facility] Polio (IPV/OPV) 2004-07-22 Completed [facility] 00:00:00 [facility] Varicella 2004-07-22 Completed [facility] (varivax)(chicken 00:00:00 [place] [facility] DTaP, Unspecified 2004-07-22 Completed [facility] Formulation 00:00:00 [facility] IPV 2004-07-22 Completed [facility] 00:00:00 [facility] DTAP 2004-07-22 Completed [facility] 00:00:00 [facility] Hep B, Adol or Pedi 2004-07-22 Completed [facility] of Dosage 00:00:00 [facility] MMR 2004-07-22 Completed [facility] 00:00:00 [facility] Polio (IPV/OPV) 2004-07-22 Completed [facility] 00:00:00 [facility] Varicella 2004-07-22 Completed [facility] (varivax)(chicken 00:00:00 [place] [facility] DTaP, Unspecified 2004-07-22 Completed [facility] Formulation 00:00:00 [facility] IPV 2004-07-22 Completed [facility] 00:00:00 [facility] DTAP 2004-07-22 Completed [facility] 00:00:00 [facility] Hep B, Adol or Pedi 2004-07-22 Completed [facility] of Dosage 00:00:00 [facility] MMR 2004-07-22 Completed [facility] 00:00:00 [facility] Polio (IPV/OPV) 2004-07-22 Completed [facility] 00:00:00 [facility] Varicella 2004-07-22 Completed [facility] (varivax)(chicken 00:00:00 [place] [facility] DTaP, Unspecified 2004-07-22 Completed [facility] Formulation 00:00:00 [facility] IPV 2004-07-22 Completed [facility] 00:00:00 [facility] DTAP 2004-07-22 Completed [facility] 00:00:00 [facility] Hep B, Adol or Pedi 2004-07-22 Completed [facility] rs[facility] of Dosage 00:00:00 [facility] MMR 2004-07-22 Completed [facility] 00:00:00 [facility] Polio (IPV/OPV) 2004-07-22 Completed [facility] 00:00:00 [facility] Varicella 2004-07-22 Completed [facility] (varivax)(chicken 00:00:00 [facility] edical pox) Branch DTaP, Unspecified 2004-07-22 Completed [facility] Formulation 00:00:00 [facility] IPV 2004-07-22 Completed [facility] 00:00:00 [facility] DTAP 2004-07-22 Completed [facility] 00:00:00 [facility] Hep B, Adol or Pedi 2004-07-22 Completed [facility] rs[facility] of Dosage 00:00:00 [facility] MMR 2004-07-22 Completed [facility] 00:00:00 [facility] Polio (IPV/OPV) 2004-07-22 Completed [facility] 00:00:00 [facility] Varicella 2004-07-22 Completed [facility] (varivax)(chicken 00:00:00 [place] [facility] DTaP, Unspecified 2004-07-22 Completed [facility] Formulation 00:00:00 [facility] IPV 2004-07-22 Completed [facility] 00:00:00 [facility] DTAP 2004-07-22 Completed [facility] 00:00:00 [facility] Hep B, Adol or Pedi 2004-07-22 Completed [facility] rs[facility] of Dosage 00:00:00 [facility] MMR 2004-07-22 Completed [facility] 00:00:00 [facility] Polio (IPV/OPV) 2004-07-22 Completed [facility] 00:00:00 [facility] Varicella 2004-07-22 Completed [facility] (varivax)(chicken 00:00:00 [facility] edical pox) Branch DTaP, Unspecified 2004-07-22 Completed [facility] Formulation 00:00:00 [facility] IPV 2004-07-22 Completed [facility] 00:00:00 [facility] DTAP 2004-07-22 Completed [facility] 00:00:00 [facility] Hep B, Adol or Pedi 2004-07-22 Completed [facility] rs[facility] of Dosage 00:00:00 [facility] MMR 2004-07-22 Completed [facility] 00:00:00 [facility] Polio (IPV/OPV) 2004-07-22 Completed [facility] 00:00:00 [facility] Varicella 2004-07-22 Completed [facility] (varivax)(chicken 00:00:00 [facility] edical pox) Branch DTaP, Unspecified 2004-07-22 Completed [facility] Formulation 00:00:00 [facility] IPV 2004-07-22 Completed [facility] 00:00:00 [facility] DTAP 2004-07-22 Completed [facility] 00:00:00 [facility] Hep B, Adol or Pedi 2004-07-22 Completed [facility] rs[facility] of Dosage 00:00:00 [facility] MMR 2004-07-22 Completed [facility] 00:00:00 [facility] Polio (IPV/OPV) 2004-07-22 Completed [facility] 00:00:00 [facility] Varicella 2004-07-22 Completed [facility] (varivax)(chicken 00:00:00 [place] [facility] DTaP, Unspecified 2004-07-22 Completed [facility] Formulation 00:00:00 [facility] IPV 2004-07-22 Completed [facility] 00:00:00 [facility] DTAP 2004-07-22 Completed [facility] 00:00:00 [facility] Hep B, Adol or Pedi 2004-07-22 Completed [facility] rs[facility] of Dosage 00:00:00 [facility] MMR 2004-07-22 Completed [facility] 00:00:00 [facility] Polio (IPV/OPV) 2004-07-22 Completed [facility] 00:00:00 [facility] Varicella 2004-07-22 Completed [facility] (varivax)(chicken 00:00:00 [facility] edical pox) Branch DTaP, Unspecified 2004-07-22 Completed [facility] Formulation 00:00:00 [facility] IPV 2004-07-22 Completed [facility] 00:00:00 [facility] DTAP 2004-07-22 Completed [facility] 00:00:00 [facility] Hep B, Adol or Pedi 2004-07-22 Completed [facility] rs[facility] of Dosage 00:00:00 [facility] MMR 2004-07-22 Completed [facility] 00:00:00 [facility] Polio (IPV/OPV) 2004-07-22 Completed [facility] 00:00:00 [facility] Varicella 2004-07-22 Completed [facility] (varivax)(chicken 00:00:00 [place] [facility] DTaP, Unspecified 2004-07-22 Completed [facility] Formulation 00:00:00 [facility] IPV 2004-07-22 Completed [facility] 00:00:00 [facility] DTAP 2004-07-22 Completed [facility] 00:00:00 [facility] Hep B, Adol or Pedi 2004-07-22 Completed [facility] rs[facility] of Dosage 00:00:00 [facility] MMR 2004-07-22 Completed [facility] 00:00:00 [facility] Polio (IPV/OPV) 2004-07-22 Completed [facility] 00:00:00 [facility] Varicella 2004-07-22 Completed [facility] (varivax)(chicken 00:00:00 [place] [facility] DTaP, Unspecified 2004-07-22 Completed [facility] Formulation 00:00:00 [facility] IPV 2004-07-22 Completed [facility] 00:00:00 [facility] DTAP 2003-06-04 Completed [facility] 00:00:00 [facility] HIB 3 Dose Schedule 2003-06-04 Completed Unive rsity of 00:00:00 [facility] Hep B, Adol or Pedi 2003-06-04 Completed [facility] rs[facility] of Dosage 00:00:00 [facility] MMR 2003-06-04 Completed [facility] 00:00:00 [facility] Polio (IPV/OPV) 2003-06-04 Completed [facility] 00:00:00 [facility] Varicella 2003-06-04 Completed [facility] (varivax)(chicken 00:00:00 [place] [facility] DTAP 2003-06-04 Completed [facility] 00:00:00 [facility] HIB 3 Dose Schedule 2003-06-04 Completed [facility] rsity of 00:00:00 [facility] Hep B, Adol or Pedi 2003-06-04 Completed [facility] rsity of Dosage 00:00:00 [facility] MMR 2003-06-04 Completed [facility] 00:00:00 [facility] Polio (IPV/OPV) 2003-06-04 Completed [facility] 00:00:00 [facility] Varicella 2003-06-04 Completed [facility] (varivax)(chicken 00:00:00 [place] [facility] DTAP 2003-06-04 Completed [facility] 00:00:00 [facility] HIB 3 Dose Schedule 2003-06-04 Completed [facility] rsity of 00:00:00 [facility] Hep B, Adol or Pedi 2003-06-04 Completed [facility] rsity of Dosage 00:00:00 [facility] MMR 2003-06-04 Completed [facility] 00:00:00 [facility] Polio (IPV/OPV) 2003-06-04 Completed [facility] 00:00:00 [facility] Varicella 2003-06-04 Completed [facility] (varivax)(chicken 00:00:00 [place] [facility] DTAP 2003-06-04 Completed [facility] 00:00:00 [facility] HIB 3 Dose Schedule 2003-06-04 Completed [facility] rsity of 00:00:00 [facility] Hep B, Adol or Pedi 2003-06-04 Completed [facility] rs[facility] of Dosage 00:00:00 [facility] MMR 2003-06-04 Completed [facility] 00:00:00 [facility] Polio (IPV/OPV) 2003-06-04 Completed [facility] 00:00:00 [facility] Varicella 2003-06-04 Completed [facility] (varivax)(chicken 00:00:00 [place] [facility] DTAP 2003-06-04 Completed [facility] 00:00:00 [facility] HIB 3 Dose Schedule 2003-06-04 Completed [facility] rsity of 00:00:00 [facility] Hep B, Adol or Pedi 2003-06-04 Completed [facility] rs[facility] of Dosage 00:00:00 [facility] MMR 2003-06-04 Completed [facility] 00:00:00 [facility] Polio (IPV/OPV) 2003-06-04 Completed [facility] 00:00:00 [facility] Varicella 2003-06-04 Completed [facility] (varivax)(chicken 00:00:00 [place] [facility] DTAP 2003-06-04 Completed [facility] 00:00:00 [facility] HIB 3 Dose Schedule 2003-06-04 Completed [facility] 00:00:00 [facility] Hep B, Adol or Pedi 2003-06-04 Completed [facility] Dosage 00:00:00 [facility] MMR 2003-06-04 Completed [facility] 00:00:00 [facility] Polio (IPV/OPV) 2003-06-04 Completed [facility] 00:00:00 [facility] Varicella 2003-06-04 Completed [facility] (varivax)(chicken 00:00:00 [place] [facility] DTAP 2003-06-04 Completed [facility] 00:00:00 [facility] HIB 3 Dose Schedule 2003-06-04 Completed [facility] 00:00:00 [facility] Hep B, Adol or Pedi 2003-06-04 Completed [facility] Dosage 00:00:00 [facility] MMR 2003-06-04 Completed [facility] 00:00:00 [facility] Polio (IPV/OPV) 2003-06-04 Completed [facility] 00:00:00 [facility] Varicella 2003-06-04 Completed [facility] (varivax)(chicken 00:00:00 [place] [facility] DTAP 2003-06-04 Completed [facility] 00:00:00 [facility] HIB 3 Dose Schedule 2003-06-04 Completed [facility] 00:00:00 [facility] Hep B, Adol or Pedi 2003-06-04 Completed [facility] Dosage 00:00:00 [facility] MMR 2003-06-04 Completed [facility] 00:00:00 [facility] Polio (IPV/OPV) 2003-06-04 Completed [facility] 00:00:00 [facility] Varicella 2003-06-04 Completed [facility] (varivax)(chicken 00:00:00 [place] [facility] DTAP 2003-06-04 Completed [facility] 00:00:00 [facility] HIB 3 Dose Schedule 2003-06-04 Completed [facility] 00:00:00 [facility] Hep B, Adol or Pedi 2003-06-04 Completed [facility] Dosage 00:00:00 [facility] MMR 2003-06-04 Completed [facility] 00:00:00 [facility] Polio (IPV/OPV) 2003-06-04 Completed [facility] 00:00:00 [facility] Varicella 2003-06-04 Completed [facility] (varivax)(chicken 00:00:00 [place] [facility] DTAP 2003-06-04 Completed [facility] 00:00:00 [facility] HIB 3 Dose Schedule 2003-06-04 Completed [facility] 00:00:00 [facility] Hep B, Adol or Pedi 2003-06-04 Completed [facility] Dosage 00:00:00 [facility] MMR 2003-06-04 Completed [facility] 00:00:00 [facility] Polio (IPV/OPV) 2003-06-04 Completed [facility] 00:00:00 [facility] Varicella 2003-06-04 Completed [facility] (varivax)(chicken 00:00:00 [place] [facility] DTAP 2003-06-04 Completed [facility] 00:00:00 [facility] HIB 3 Dose Schedule 2003-06-04 Completed [facility] 00:00:00 [facility] Hep B, Adol or Pedi 2003-06-04 Completed [facility] Dosage 00:00:00 [facility] MMR 2003-06-04 Completed [facility] 00:00:00 [facility] Polio (IPV/OPV) 2003-06-04 Completed [facility] 00:00:00 [facility] Varicella 2003-06-04 Completed [facility] (varivax)(chicken 00:00:00 [place] [facility] DTAP 2003-06-04 Completed [facility] 00:00:00 [facility] HIB 3 Dose Schedule 2003-06-04 Completed [facility] 00:00:00 [facility] Hep B, Adol or Pedi 2003-06-04 Completed [facility] Dosage 00:00:00 [facility] MMR 2003-06-04 Completed [facility] 00:00:00 [facility] Polio (IPV/OPV) 2003-06-04 Completed [facility] 00:00:00 [facility] Varicella 2003-06-04 Completed [facility] (varivax)(chicken 00:00:00 [place] [facility] DTAP 2003-06-04 Completed [facility] 00:00:00 [facility] HIB 3 Dose Schedule 2003-06-04 Completed [facility] 00:00:00 [facility] Hep B, Adol or Pedi 2003-06-04 Completed [facility] Dosage 00:00:00 [facility] MMR 2003-06-04 Completed [facility] 00:00:00 [facility] Polio (IPV/OPV) 2003-06-04 Completed [facility] 00:00:00 [facility] Varicella 2003-06-04 Completed [facility] (varivax)(chicken 00:00:00 [place] [facility] DTAP 2003-06-04 Completed [facility] 00:00:00 [facility] HIB 3 Dose Schedule 2003-06-04 Completed [facility] 00:00:00 [facility] Hep B, Adol or Pedi 2003-06-04 Completed [facility] Dosage 00:00:00 [facility] MMR 2003-06-04 Completed [facility] 00:00:00 [facility] Polio (IPV/OPV) 2003-06-04 Completed [facility] 00:00:00 [facility] Varicella 2003-06-04 Completed [facility] (varivax)(chicken 00:00:00 [place] [facility] DTAP 2003-06-04 Completed [facility] 00:00:00 [facility] HIB 3 Dose Schedule 2003-06-04 Completed [facility] 00:00:00 [facility] Hep B, Adol or Pedi 2003-06-04 Completed [facility] Dosage 00:00:00 [facility] MMR 2003-06-04 Completed [facility] 00:00:00 [facility] Polio (IPV/OPV) 2003-06-04 Completed [facility] 00:00:00 [facility] Varicella 2003-06-04 Completed [facility] (varivax)(chicken 00:00:00 [place] [facility] DTAP 2003-06-04 Completed [facility] 00:00:00 [facility] HIB 3 Dose Schedule 2003-06-04 Completed [facility] 00:00:00 [facility] Hep B, Adol or Pedi 2003-06-04 Completed [facility] Dosage 00:00:00 [facility] MMR 2003-06-04 Completed [facility] 00:00:00 [facility] Polio (IPV/OPV) 2003-06-04 Completed [facility] 00:00:00 [facility] Varicella 2003-06-04 Completed [facility] (varivax)(chicken 00:00:00 [place] [facility] DTAP 2003-06-04 Completed [facility] 00:00:00 [facility] HIB 3 Dose Schedule 2003-06-04 Completed [facility] 00:00:00 [facility] Hep B, Adol or Pedi 2003-06-04 Completed [facility] Dosage 00:00:00 [facility] MMR 2003-06-04 Completed [facility] 00:00:00 [facility] Polio (IPV/OPV) 2003-06-04 Completed [facility] 00:00:00 [facility] Varicella 2003-06-04 Completed [facility] (varivax)(chicken 00:00:00 [place] [facility] DTAP 2003-06-04 Completed [facility] 00:00:00 [facility] HIB 3 Dose Schedule 2003-06-04 Completed [facility] 00:00:00 [facility] Hep B, Adol or Pedi 2003-06-04 Completed [facility] Dosage 00:00:00 [facility] MMR 2003-06-04 Completed [facility] 00:00:00 [facility] Polio (IPV/OPV) 2003-06-04 Completed [facility] 00:00:00 [facility] Varicella 2003-06-04 Completed [facility] (varivax)(chicken 00:00:00 [place] [facility] DTAP 2003-06-04 Completed [facility] 00:00:00 [facility] HIB 3 Dose Schedule 2003-06-04 Completed [facility] 00:00:00 [facility] Hep B, Adol or Pedi 2003-06-04 Completed [facility] Dosage 00:00:00 [facility] MMR 2003-06-04 Completed [facility] 00:00:00 [facility] Polio (IPV/OPV) 2003-06-04 Completed [facility] 00:00:00 [facility] Varicella 2003-06-04 Completed [facility] (varivax)(chicken 00:00:00 [place] [facility] DTAP 2003-06-04 Completed [facility] 00:00:00 [facility] HIB 3 Dose Schedule 2003-06-04 Completed [facility] 00:00:00 [facility] Hep B, Adol or Pedi 2003-06-04 Completed [facility] Dosage 00:00:00 [facility] MMR 2003-06-04 Completed [facility] 00:00:00 [facility] Polio (IPV/OPV) 2003-06-04 Completed [facility] 00:00:00 [facility] Varicella 2003-06-04 Completed [facility] (varivax)(chicken 00:00:00 [place] [facility] DTAP 2003-06-04 Completed [facility] 00:00:00 [facility] HIB 3 Dose Schedule 2003-06-04 Completed [facility] 00:00:00 [facility] Hep B, Adol or Pedi 2003-06-04 Completed [facility] of Dosage 00:00:00 [facility] MMR 2003-06-04 Completed [facility] 00:00:00 [facility] Polio (IPV/OPV) 2003-06-04 Completed [facility] 00:00:00 [facility] Varicella 2003-06-04 Completed [facility] (varivax)(chicken 00:00:00 [place] [facility] DTAP 2003-06-04 Completed [facility] 00:00:00 [facility] HIB 3 Dose Schedule 2003-06-04 Completed [facility] 00:00:00 [facility] Hep B, Adol or Pedi 2003-06-04 Completed [facility] Dosage 00:00:00 [facility] MMR 2003-06-04 Completed [facility] 00:00:00 [facility] Polio (IPV/OPV) 2003-06-04 Completed [facility] 00:00:00 [facility] Varicella 2003-06-04 Completed [facility] (varivax)(chicken 00:00:00 [place] [facility] DTAP 2003-06-04 Completed [facility] 00:00:00 [facility] HIB 3 Dose Schedule 2003-06-04 Completed [facility] 00:00:00 [facility] Hep B, Adol or Pedi 2003-06-04 Completed [facility] Dosage 00:00:00 [facility] MMR 2003-06-04 Completed [facility] 00:00:00 [facility] Polio (IPV/OPV) 2003-06-04 Completed [facility] 00:00:00 [facility] Varicella 2003-06-04 Completed [facility] (varivax)(chicken 00:00:00 [place] [facility] DTAP 2003-06-04 Completed [facility] 00:00:00 [facility] HIB 3 Dose Schedule 2003-06-04 Completed [facility] 00:00:00 [facility] Hep B, Adol or Pedi 2003-06-04 Completed [facility] Dosage 00:00:00 [facility] MMR 2003-06-04 Completed [facility] 00:00:00 [facility] Polio (IPV/OPV) 2003-06-04 Completed [facility] 00:00:00 [facility] Varicella 2003-06-04 Completed [facility] (varivax)(chicken 00:00:00 [place] [facility] DTAP 2003-06-04 Completed [facility] 00:00:00 [facility] HIB 3 Dose Schedule 2003-06-04 Completed [facility] 00:00:00 [facility] Hep B, Adol or Pedi 2003-06-04 Completed [facility] Dosage 00:00:00 [facility] MMR 2003-06-04 Completed [facility] 00:00:00 [facility] Polio (IPV/OPV) 2003-06-04 Completed [facility] 00:00:00 [facility] Varicella 2003-06-04 Completed [facility] (varivax)(chicken 00:00:00 [place] [facility] DTAP 2003-06-04 Completed [facility] 00:00:00 [facility] HIB 3 Dose Schedule 2003-06-04 Completed [facility] 00:00:00 [facility] Hep B, Adol or Pedi 2003-06-04 Completed [facility] Dosage 00:00:00 [facility] MMR 2003-06-04 Completed [facility] 00:00:00 [facility] Polio (IPV/OPV) 2003-06-04 Completed [facility] 00:00:00 [facility] Varicella 2003-06-04 Completed [facility] (varivax)(chicken 00:00:00 [place] [facility] DTAP 2003-06-04 Completed [facility] 00:00:00 [facility] HIB 3 Dose Schedule 2003-06-04 Completed [facility] 00:00:00 [facility] Hep B, Adol or Pedi 2003-06-04 Completed [facility] Dosage 00:00:00 [facility] MMR 2003-06-04 Completed [facility] 00:00:00 [facility] Polio (IPV/OPV) 2003-06-04 Completed [facility] 00:00:00 [facility] Varicella 2003-06-04 Completed [facility] (varivax)(chicken 00:00:00 [place] [facility] DTAP 2003-06-04 Completed [facility] 00:00:00 [facility] HIB 3 Dose Schedule 2003-06-04 Completed [facility] 00:00:00 [facility] Hep B, Adol or Pedi 2003-06-04 Completed [facility] Dosage 00:00:00 [facility] MMR 2003-06-04 Completed [facility] 00:00:00 [facility] Polio (IPV/OPV) 2003-06-04 Completed [facility] 00:00:00 [facility] Varicella 2003-06-04 Completed [facility] (varivax)(chicken 00:00:00 [place] [facility] DTAP 2003-06-04 Completed [facility] 00:00:00 [facility] HIB 3 Dose Schedule 2003-06-04 Completed [facility] 00:00:00 [facility] Hep B, Adol or Pedi 2003-06-04 Completed [facility] Dosage 00:00:00 [facility] MMR 2003-06-04 Completed [facility] 00:00:00 [facility] Polio (IPV/OPV) 2003-06-04 Completed [facility] 00:00:00 [facility] Varicella 2003-06-04 Completed [facility] (varivax)(chicken 00:00:00 [place] [facility] DTAP 2003-06-04 Completed [facility] 00:00:00 [facility] HIB 3 Dose Schedule 2003-06-04 Completed [facility] 00:00:00 [facility] Hep B, Adol or Pedi 2003-06-04 Completed [facility] Dosage 00:00:00 [facility] MMR 2003-06-04 Completed [facility] 00:00:00 [facility] Polio (IPV/OPV) 2003-06-04 Completed [facility] 00:00:00 [facility] Varicella 2003-06-04 Completed [facility] (varivax)(chicken 00:00:00 [place] [facility] DTAP 2003-06-04 Completed [facility] 00:00:00 [facility] HIB 3 Dose Schedule 2003-06-04 Completed [facility] 00:00:00 [facility] Hep B, Adol or Pedi 2003-06-04 Completed [facility] Dosage 00:00:00 [facility] MMR 2003-06-04 Completed [facility] 00:00:00 [facility] Polio (IPV/OPV) 2003-06-04 Completed [facility] 00:00:00 [facility] Varicella 2003-06-04 Completed [facility] (varivax)(chicken 00:00:00 [place] [facility] DTAP 2003-06-04 Completed [facility] 00:00:00 [facility] HIB 3 Dose Schedule 2003-06-04 Completed [facility] 00:00:00 [facility] Hep B, Adol or Pedi 2003-06-04 Completed [facility] Dosage 00:00:00 [facility] MMR 2003-06-04 Completed [facility] 00:00:00 [facility] Polio (IPV/OPV) 2003-06-04 Completed [facility] 00:00:00 [facility] Varicella 2003-06-04 Completed [facility] (varivax)(chicken 00:00:00 [place] [facility] DTAP 2003-06-04 Completed [facility] 00:00:00 [facility] HIB 3 Dose Schedule 2003-06-04 Completed [facility] 00:00:00 [facility] Hep B, Adol or Pedi 2003-06-04 Completed [facility] Dosage 00:00:00 [facility] MMR 2003-06-04 Completed [facility] 00:00:00 [facility] Polio (IPV/OPV) 2003-06-04 Completed [facility] 00:00:00 [facility] Varicella 2003-06-04 Completed [facility] (varivax)(chicken 00:00:00 [place] [facility] DTAP 2003-06-04 Completed [facility] 00:00:00 [facility] HIB 3 Dose Schedule 2003-06-04 Completed [facility] 00:00:00 [facility] Hep B, Adol or Pedi 2003-06-04 Completed [facility] Dosage 00:00:00 [facility] MMR 2003-06-04 Completed [facility] 00:00:00 [facility] Polio (IPV/OPV) 2003-06-04 Completed [facility] 00:00:00 [facility] Varicella 2003-06-04 Completed [facility] (varivax)(chicken 00:00:00 [place] [facility] DTAP 2003-06-04 Completed [facility] 00:00:00 [facility] HIB 3 Dose Schedule 2003-06-04 Completed [facility] 00:00:00 [facility] Hep B, Adol or Pedi 2003-06-04 Completed [facility] Dosage 00:00:00 [facility] MMR 2003-06-04 Completed [facility] 00:00:00 [facility] Polio (IPV/OPV) 2003-06-04 Completed [facility] 00:00:00 [facility] Varicella 2003-06-04 Completed [facility] (varivax)(chicken 00:00:00 [place] [facility] DTAP 2003-06-04 Completed [facility] 00:00:00 [facility] HIB 3 Dose Schedule 2003-06-04 Completed [facility] 00:00:00 [facility] Hep B, Adol or Pedi 2003-06-04 Completed [facility] Dosage 00:00:00 [facility] MMR 2003-06-04 Completed [facility] 00:00:00 [facility] Polio (IPV/OPV) 2003-06-04 Completed [facility] 00:00:00 [facility] Varicella 2003-06-04 Completed [facility] (varivax)(chicken 00:00:00 [place] [facility] DTAP 2003-06-04 Completed [facility] 00:00:00 [facility] HIB 3 Dose Schedule 2003-06-04 Completed [facility] 00:00:00 [facility] Hep B, Adol or Pedi 2003-06-04 Completed [facility] Dosage 00:00:00 [facility] MMR 2003-06-04 Completed [facility] 00:00:00 [facility] Polio (IPV/OPV) 2003-06-04 Completed [facility] 00:00:00 [facility] Varicella 2003-06-04 Completed [facility] (varivax)(chicken 00:00:00 [place] [facility] DTAP 2003-06-04 Completed [facility] 00:00:00 [facility] HIB 3 Dose Schedule 2003-06-04 Completed [facility] 00:00:00 [facility] Hep B, Adol or Pedi 2003-06-04 Completed [facility] Dosage 00:00:00 [facility] MMR 2003-06-04 Completed [facility] 00:00:00 [facility] Polio (IPV/OPV) 2003-06-04 Completed [facility] 00:00:00 [facility] Varicella 2003-06-04 Completed [facility] (varivax)(chicken 00:00:00 [place] [facility] DTaP, Unspecified 2003-06-04 Completed [facility] Formulation 00:00:00 [facility] HIB 4 Dose Schedule 2003-06-04 Completed [facility] 00:00:00 [facility] IPV 2003-06-04 Completed [facility] 00:00:00 [facility] DTAP 2003-06-04 Completed [facility] 00:00:00 [facility] HIB 3 Dose Schedule 2003-06-04 Completed [facility] 00:00:00 [facility] Hep B, Adol or Pedi 2003-06-04 Completed [facility] of Dosage 00:00:00 [facility] MMR 2003-06-04 Completed [facility] 00:00:00 [facility] Polio (IPV/OPV) 2003-06-04 Completed [facility] 00:00:00 [facility] Varicella 2003-06-04 Completed [facility] (varivax)(chicken 00:00:00 [place] [facility] DTaP, Unspecified 2003-06-04 Completed [facility] Formulation 00:00:00 [facility] HIB 4 Dose Schedule 2003-06-04 Completed [facility] 00:00:00 [facility] IPV 2003-06-04 Completed [facility] 00:00:00 [facility] DTAP 2003-06-04 Completed [facility] 00:00:00 [facility] HIB 3 Dose Schedule 2003-06-04 Completed [facility] 00:00:00 [facility] Hep B, Adol or Pedi 2003-06-04 Completed [facility] Dosage 00:00:00 [facility] MMR 2003-06-04 Completed [facility] 00:00:00 [facility] Polio (IPV/OPV) 2003-06-04 Completed [facility] 00:00:00 [facility] Varicella 2003-06-04 Completed [facility] (varivax)(chicken 00:00:00 [facility] edical pox) Branch DTaP, Unspecified 2003-06-04 Completed [facility] it[facility] of Formulation 00:00:00 [facility] HIB 4 Dose Schedule 2003-06-04 Completed [facility] of 00:00:00 [facility] IPV 2003-06-04 Completed [facility] 00:00:00 [facility] DTAP 2003-06-04 Completed [facility] 00:00:00 [facility] HIB 3 Dose Schedule 2003-06-04 Completed [facility] 00:00:00 [facility] Hep B, Adol or Pedi 2003-06-04 Completed [facility] of Dosage 00:00:00 [facility] MMR 2003-06-04 Completed [facility] 00:00:00 [facility] Polio (IPV/OPV) 2003-06-04 Completed [facility] 00:00:00 [facility] Varicella 2003-06-04 Completed [facility] (varivax)(chicken 00:00:00 [place] [facility] DTaP, Unspecified 2003-06-04 Completed [facility] Formulation 00:00:00 [facility] HIB 4 Dose Schedule 2003-06-04 Completed [facility] 00:00:00 [facility] IPV 2003-06-04 Completed [facility] 00:00:00 [facility] DTAP 2003-06-04 Completed [facility] 00:00:00 [facility] HIB 3 Dose Schedule 2003-06-04 Completed [facility] 00:00:00 [facility] Hep B, Adol or Pedi 2003-06-04 Completed [facility] of Dosage 00:00:00 [facility] MMR 2003-06-04 Completed [facility] 00:00:00 [facility] Polio (IPV/OPV) 2003-06-04 Completed [facility] 00:00:00 [facility] Varicella 2003-06-04 Completed [facility] (varivax)(chicken 00:00:00 [place] [facility] DTaP, Unspecified 2003-06-04 Completed [facility] Formulation 00:00:00 [facility] HIB 4 Dose Schedule 2003-06-04 Completed [facility] 00:00:00 [facility] IPV 2003-06-04 Completed [facility] 00:00:00 [facility] DTAP 2003-06-04 Completed [facility] 00:00:00 [facility] HIB 3 Dose Schedule 2003-06-04 Completed [facility] 00:00:00 [facility] Hep B, Adol or Pedi 2003-06-04 Completed [facility] Dosage 00:00:00 [facility] MMR 2003-06-04 Completed [facility] 00:00:00 [facility] Polio (IPV/OPV) 2003-06-04 Completed [facility] 00:00:00 [facility] Varicella 2003-06-04 Completed [facility] (varivax)(chicken 00:00:00 [place] [facility] DTaP, Unspecified 2003-06-04 Completed [facility] Formulation 00:00:00 [facility] HIB 4 Dose Schedule 2003-06-04 Completed [facility] 00:00:00 [facility] IPV 2003-06-04 Completed [facility] 00:00:00 [facility] DTAP 2003-06-04 Completed [facility] 00:00:00 [facility] HIB 3 Dose Schedule 2003-06-04 Completed [facility] 00:00:00 [facility] Hep B, Adol or Pedi 2003-06-04 Completed [facility] of Dosage 00:00:00 [facility] MMR 2003-06-04 Completed [facility] 00:00:00 [facility] Polio (IPV/OPV) 2003-06-04 Completed [facility] 00:00:00 [facility] Varicella 2003-06-04 Completed [facility] (varivax)(chicken 00:00:00 [place] [facility] DTaP, Unspecified 2003-06-04 Completed [facility] Formulation 00:00:00 [facility] HIB 4 Dose Schedule 2003-06-04 Completed [facility] 00:00:00 [facility] IPV 2003-06-04 Completed [facility] 00:00:00 [facility] DTAP 2003-06-04 Completed [facility] 00:00:00 [facility] HIB 3 Dose Schedule 2003-06-04 Completed [facility] 00:00:00 [facility] Hep B, Adol or Pedi 2003-06-04 Completed [facility] of Dosage 00:00:00 [facility] MMR 2003-06-04 Completed [facility] 00:00:00 [facility] Polio (IPV/OPV) 2003-06-04 Completed [facility] 00:00:00 [facility] Varicella 2003-06-04 Completed [facility] (varivax)(chicken 00:00:00 [place] [facility] DTaP, Unspecified 2003-06-04 Completed [facility] Formulation 00:00:00 [facility] HIB 4 Dose Schedule 2003-06-04 Completed [facility] 00:00:00 [facility] IPV 2003-06-04 Completed [facility] 00:00:00 [facility] DTAP 2003-06-04 Completed [facility] 00:00:00 [facility] HIB 3 Dose Schedule 2003-06-04 Completed [facility]ive [facility]ity of 00:00:00 [facility] Hep B, Adol or Pedi 2003-06-04 Completed [facility] of Dosage 00:00:00 [facility] MMR 2003-06-04 Completed [facility] of 00:00:00 [facility] Polio (IPV/OPV) 2003-06-04 Completed [facility] 00:00:00 [facility] Varicella 2003-06-04 Completed University of (varivax)(chicken 00:00:00 [place] [facility] pox) [facility] DTaP, Unspecified 2003-06-04 Completed Univers ity of Formulation 00:00:00 [facility] HIB 4 Dose Schedule 2003-06-04 Completed Unive rsity of 00:00:00 [facility] IPV 2003-06-04 Completed [facility] 00:00:00 [facility] DTAP 2003-06-04 Completed [facility] of 00:00:00 [facility] HIB 3 Dose Schedule 2003-06-04 Completed [facility]ive rsity of 00:00:00 [facility] Hep B, Adol or Pedi 2003-06-04 Completed [facility]ive rs[facility] of Dosage 00:00:00 [facility] MMR 2003-06-04 Completed [facility] of 00:00:00 [facility] Polio (IPV/OPV) 2003-06-04 Completed [facility] 00:00:00 [facility] Varicella 2003-06-04 Completed [facility] of (varivax)(chicken 00:00:00 [place] [facility] pox) [facility] DTaP, Unspecified 2003-06-04 Completed Univers ity of Formulation 00:00:00 [facility] HIB 4 Dose Schedule 2003-06-04 Completed [facility]ive rsity of 00:00:00 [facility] IPV 2003-06-04 Completed [facility] of 00:00:00 [facility] DTAP 2003-06-04 Completed [facility] of 00:00:00 [facility] HIB 3 Dose Schedule 2003-06-04 Completed [facility]ive [facility] of 00:00:00 [facility] Hep B, Adol or Pedi 2003-06-04 Completed [facility]ive [facility] of Dosage 00:00:00 [facility] MMR 2003-06-04 Completed [facility] of 00:00:00 [facility] Polio (IPV/OPV) 2003-06-04 Completed [facility] 00:00:00 [facility] Varicella 2003-06-04 Completed [facility] of (varivax)(chicken 00:00:00 [place] [facility] pox) [facility] DTaP, Unspecified 2003-06-04 Completed [facility] ity of Formulation 00:00:00 [facility] HIB 4 Dose Schedule 2003-06-04 Completed [facility]ive rsity of 00:00:00 [facility] IPV 2003-06-04 Completed [facility] 00:00:00 [facility] DTAP 2003-06-04 Completed [facility] of 00:00:00 [facility] HIB 3 Dose Schedule 2003-06-04 Completed [facility]ive rs[facility] of 00:00:00 [facility] Hep B, Adol or Pedi 2003-06-04 Completed [facility] of Dosage 00:00:00 [facility] MMR 2003-06-04 Completed [facility] of 00:00:00 [facility] Polio (IPV/OPV) 2003-06-04 Completed [facility] 00:00:00 [facility] Varicella 2003-06-04 Completed [facility] of (varivax)(chicken 00:00:00 [place] [facility] pox) [facility] DTaP, Unspecified 2003-06-04 Completed [facility] ity of Formulation 00:00:00 [facility] HIB 4 Dose Schedule 2003-06-04 Completed [facility]ive rsity of 00:00:00 [facility] IPV 2003-06-04 Completed [facility] of 00:00:00 [facility] DTAP 2003-06-04 Completed [facility] of 00:00:00 [facility] HIB 3 Dose Schedule 2003-06-04 Completed [facility]ive rs[facility] of 00:00:00 [facility] Hep B, Adol or Pedi 2003-06-04 Completed [facility]ive rs[facility] of Dosage 00:00:00 [facility] MMR 2003-06-04 Completed [facility] 00:00:00 [facility] Polio (IPV/OPV) 2003-06-04 Completed [facility]it [facility] of 00:00:00 [facility] Varicella 2003-06-04 Completed [facility] of (varivax)(chicken 00:00:00 [facility] edical pox) Branch DTaP, Unspecified 2003-06-04 Completed Univers ity of Formulation 00:00:00 [facility] HIB 4 Dose Schedule 2003-06-04 Completed [facility]ive rsity of 00:00:00 [facility] IPV 2003-06-04 Completed [facility] of 00:00:00 [facility] DTAP 2003-06-04 Completed [facility] of 00:00:00 [facility] HIB 3 Dose Schedule 2003-06-04 Completed [facility]ive rsity of 00:00:00 [facility] Hep B, Adol or Pedi 2003-06-04 Completed [facility]ive rsity of Dosage 00:00:00 [facility] MMR 2003-06-04 Completed [facility] 00:00:00 [facility] Polio (IPV/OPV) 2003-06-04 Completed [facility] 00:00:00 [facility] Varicella 2003-06-04 Completed [facility] of (varivax)(chicken 00:00:00 [place] [facility] pox) Branch DTaP, Unspecified 2003-06-04 Completed Univers ity of Formulation 00:00:00 [facility] HIB 4 Dose Schedule 2003-06-04 Completed [facility]ive rsity of 00:00:00 [facility] IPV 2003-06-04 Completed [facility] 00:00:00 [facility] DTAP 2003-06-04 Completed [facility] of 00:00:00 [facility] HIB 3 Dose Schedule 2003-06-04 Completed [facility]ive rsity of 00:00:00 [facility] Hep B, Adol or Pedi 2003-06-04 Completed [facility]ive rs[facility] of Dosage 00:00:00 [facility] MMR 2003-06-04 Completed [facility] of 00:00:00 [facility] Polio (IPV/OPV) 2003-06-04 Completed [facility] of 00:00:00 [facility] Varicella 2003-06-04 Completed [facility] of (varivax)(chicken 00:00:00 [facility] edical pox) Branch DTaP, Unspecified 2003-06-04 Completed Univers ity of Formulation 00:00:00 [facility] HIB 4 Dose Schedule 2003-06-04 Completed [facility]ive rsity of 00:00:00 [facility] IPV 2003-06-04 Completed [facility] of 00:00:00 [facility] DTAP 2003-06-04 Completed [facility] 00:00:00 [facility] HIB 3 Dose Schedule 2003-06-04 Completed [facility]ive rsity of 00:00:00 [facility] Hep B, Adol or Pedi 2003-06-04 Completed [facility]ive rs[facility] of Dosage 00:00:00 [facility] MMR 2003-06-04 Completed [facility] 00:00:00 [facility] Polio (IPV/OPV) 2003-06-04 Completed [facility]it [facility] of 00:00:00 [facility] Varicella 2003-06-04 Completed [facility] of (varivax)(chicken 00:00:00 [facility] edical pox) Branch DTaP, Unspecified 2003-06-04 Completed Univers ity of Formulation 00:00:00 [facility] HIB 4 Dose Schedule 2003-06-04 Completed [facility]ive rsity of 00:00:00 [facility] IPV 2003-06-04 Completed [facility] of 00:00:00 [facility] DTAP 2003-06-04 Completed [facility] 00:00:00 [facility] HIB 3 Dose Schedule 2003-06-04 Completed [facility]ive rsity of 00:00:00 [facility] Hep B, Adol or Pedi 2003-06-04 Completed [facility]ive rsity of Dosage 00:00:00 [facility] MMR 2003-06-04 Completed [facility] of 00:00:00 [facility] Polio (IPV/OPV) 2003-06-04 Completed [facility] of 00:00:00 [facility] Varicella 2003-06-04 Completed [facility] of (varivax)(chicken 00:00:00 [facility] edical pox) Branch DTaP, Unspecified 2003-06-04 Completed [facility] ity of Formulation 00:00:00 [facility] HIB 4 Dose Schedule 2003-06-04 Completed [facility]ive rsity of 00:00:00 [facility] IPV 2003-06-04 Completed [facility] of 00:00:00 [facility] DTAP 2003-06-04 Completed [facility] of 00:00:00 [facility] HIB 3 Dose Schedule 2003-06-04 Completed [facility]ive rsity of 00:00:00 [facility] Hep B, Adol or Pedi 2003-06-04 Completed [facility]ive rsity of Dosage 00:00:00 [facility] MMR 2003-06-04 Completed [facility] of 00:00:00 [facility] Polio (IPV/OPV) 2003-06-04 Completed [facility] of 00:00:00 [facility] Varicella 2003-06-04 Completed [facility] of (varivax)(chicken 00:00:00 [facility] edical pox) Branch DTaP, Unspecified 2003-06-04 Completed Univers ity of Formulation 00:00:00 [facility] HIB 4 Dose Schedule 2003-06-04 Completed Unive rsity of 00:00:00 [facility] IPV 2003-06-04 Completed [facility] 00:00:00 [facility] DTAP 2003-06-04 Completed [facility] 00:00:00 [facility] HIB 3 Dose Schedule 2003-06-04 Completed [facility]ive rsity of 00:00:00 [facility] Hep B, Adol or Pedi 2003-06-04 Completed [facility]ive [facility]ity of Dosage 00:00:00 [facility] MMR 2003-06-04 Completed [facility] 00:00:00 [facility] Polio (IPV/OPV) 2003-06-04 Completed [facility] of 00:00:00 [facility] Varicella 2003-06-04 Completed [facility] of (varivax)(chicken 00:00:00 [place] [facility] pox) Branch DTaP, Unspecified 2003-06-04 Completed [facility] ity of Formulation 00:00:00 [facility] HIB 4 Dose Schedule 2003-06-04 Completed [facility]ive rsity of 00:00:00 [facility] IPV 2003-06-04 Completed [facility] 00:00:00 [facility] DTAP 2003-06-04 Completed [facility] 00:00:00 [facility] HIB 3 Dose Schedule 2003-06-04 Completed [facility]ive rsity of 00:00:00 [facility] Hep B, Adol or Pedi 2003-06-04 Completed [facility]ive rsity of Dosage 00:00:00 [facility] MMR 2003-06-04 Completed [facility] 00:00:00 [facility] Polio (IPV/OPV) 2003-06-04 Completed [facility] 00:00:00 [facility] Varicella 2003-06-04 Completed [facility] of (varivax)(chicken 00:00:00 [place] [facility] pox) Branch DTaP, Unspecified 2003-06-04 Completed [facility] it[facility] of Formulation 00:00:00 [facility] HIB 4 Dose Schedule 2003-06-04 Completed [facility]ive rsity of 00:00:00 [facility] IPV 2003-06-04 Completed [facility] 00:00:00 [facility] DTAP 2003-06-04 Completed [facility] 00:00:00 [facility] HIB 3 Dose Schedule 2003-06-04 Completed [facility]ive rsity of 00:00:00 [facility] Hep B, Adol or Pedi 2003-06-04 Completed [facility]ive rsity of Dosage 00:00:00 [facility] MMR 2003-06-04 Completed [facility] 00:00:00 [facility] Polio (IPV/OPV) 2003-06-04 Completed [facility] of 00:00:00 [facility] Varicella 2003-06-04 Completed [facility] of (varivax)(chicken 00:00:00 [facility] edical pox) Branch DTaP, Unspecified 2003-06-04 Completed Univers ity of Formulation 00:00:00 [facility] HIB 4 Dose Schedule 2003-06-04 Completed Unive rsity of 00:00:00 [facility] IPV 2003-06-04 Completed [facility] 00:00:00 [facility] DTAP 2003-06-04 Completed [facility] 00:00:00 [facility] HIB 3 Dose Schedule 2003-06-04 Completed Unive rsity of 00:00:00 [facility] Hep B, Adol or Pedi 2003-06-04 Completed Unive rsity of Dosage 00:00:00 [facility] MMR 2003-06-04 Completed [facility] of 00:00:00 [facility] Polio (IPV/OPV) 2003-06-04 Completed [facility] 00:00:00 [facility] Varicella 2003-06-04 Completed [facility] of (varivax)(chicken 00:00:00 [facility] edical pox) Branch DTaP, Unspecified 2003-06-04 Completed Univers ity of Formulation 00:00:00 [facility] HIB 4 Dose Schedule 2003-06-04 Completed [facility]ive rsity of 00:00:00 [facility] IPV 2003-06-04 Completed [facility] of 00:00:00 [facility] DTAP 2003-06-04 Completed [facility] of 00:00:00 [facility] HIB 3 Dose Schedule 2003-06-04 Completed [facility]ive rsity of 00:00:00 [facility] Hep B, Adol or Pedi 2003-06-04 Completed [facility]ive rsity of Dosage 00:00:00 [facility] MMR 2003-06-04 Completed [facility] of 00:00:00 [facility] Polio (IPV/OPV) 2003-06-04 Completed [facility] of 00:00:00 [facility] Varicella 2003-06-04 Completed [facility] of (varivax)(chicken 00:00:00 [place] [facility] pox) Branch DTaP, Unspecified 2003-06-04 Completed Univers ity of Formulation 00:00:00 [facility] HIB 4 Dose Schedule 2003-06-04 Completed Unive rsity of 00:00:00 [facility] IPV 2003-06-04 Completed [facility] 00:00:00 [facility] DTAP 2003-06-04 Completed [facility] 00:00:00 [facility] HIB 3 Dose Schedule 2003-06-04 Completed Unive rsity of 00:00:00 [facility] Hep B, Adol or Pedi 2003-06-04 Completed [facility]ive rsity of Dosage 00:00:00 [facility] MMR 2003-06-04 Completed [facility] 00:00:00 [facility] Polio (IPV/OPV) 2003-06-04 Completed [facility] of 00:00:00 [facility] Varicella 2003-06-04 Completed [facility] of (varivax)(chicken 00:00:00 [place] [facility] pox) Branch DTaP, Unspecified 2003-06-04 Completed Univers ity of Formulation 00:00:00 [facility] HIB 4 Dose Schedule 2003-06-04 Completed Unive rsity of 00:00:00 [facility] IPV 2003-06-04 Completed [facility] 00:00:00 [facility] DTAP 2003-06-04 Completed [facility] 00:00:00 [facility] HIB 3 Dose Schedule 2003-06-04 Completed Unive rsity of 00:00:00 [facility] Hep B, Adol or Pedi 2003-06-04 Completed [facility]ive [facility]ity of Dosage 00:00:00 [facility] MMR 2003-06-04 Completed [facility] 00:00:00 [facility] Polio (IPV/OPV) 2003-06-04 Completed [facility] 00:00:00 [facility] Varicella 2003-06-04 Completed [facility] of (varivax)(chicken 00:00:00 [place] [facility] pox) Branch DTaP, Unspecified 2003-06-04 Completed Univers [facility]y of Formulation 00:00:00 [facility] HIB 4 Dose Schedule 2003-06-04 Completed [facility]ive rsity of 00:00:00 [facility] IPV 2003-06-04 Completed [facility] 00:00:00 [facility] DTAP 2003-06-04 Completed [facility] 00:00:00 [facility] HIB 3 Dose Schedule 2003-06-04 Completed [facility]ive rsity of 00:00:00 [facility] Hep B, Adol or Pedi 2003-06-04 Completed Unive rsity of Dosage 00:00:00 [facility] MMR 2003-06-04 Completed [facility] 00:00:00 [facility] Polio (IPV/OPV) 2003-06-04 Completed [facility] 00:00:00 [facility] Varicella 2003-06-04 Completed [facility] of (varivax)(chicken 00:00:00 [place] [facility] pox) Branch DTaP, Unspecified 2003-06-04 Completed Univers ity of Formulation 00:00:00 [facility] HIB 4 Dose Schedule 2003-06-04 Completed [facility]ive rsity of 00:00:00 [facility] IPV 2003-06-04 Completed [facility] 00:00:00 [facility] DTAP Unknown Completed [facility] DTAP Unknown Completed [facility] DTAP Unknown Completed [facility] DTAP Unknown Completed [facility] HIB 3 Dose Schedule Unknown Completed Unive rsity [facility] HIB 3 Dose Schedule Unknown Completed Unive rsity [facility] Hepatitis A Adult Unknown Completed Univers ity [facility] Hepatitis A Adult Unknown Completed Univers ity [facility] Hep B, Adol or Pedi Unknown Completed Unive rsity of Dosage [facility] Hep B, Adol or Pedi Unknown Completed [facility]ive [facility]ity of Dosage [facility] Hep B, Adol or Pedi Unknown Completed [facility]ive [facility]ity of Dosage [facility] Meningococcal Unknown Completed [facility] Vaccine [facility] MMR Unknown Completed [facility] MMR Unknown Completed [facility] Pneumococcal 13 Unknown Completed Universit y of Conjugate, PCV13 [facility] dicny (Prevnar 13) Branch Polio (IPV/OPV) Unknown Completed Universit y [facility] Polio (IPV/OPV) Unknown Completed Universit y [facility] Polio (IPV/OPV) Unknown Completed Universit y [facility] Polio (IPV/OPV) Unknown Completed Universit y [facility] TDAP Unknown Completed [facility] Varicella Unknown Completed University (varivax)(chicken [place] [facility] pox) Branch Varicella Unknown Completed University (varivax)(chicken [place] [facility] pox) Branch Meningococcal B, OMV Unknown Completed Univ ersity [facility] Influenza Virus Unknown Completed Universit y of Vaccine Quad .5 mL [facility] 6+ MO Branch (FLUZONE/FLULAVAL/FL UARIX) TDAP Unknown Completed [facility] DTaP, Unspecified Unknown Completed Univers ity of Formulation [facility] DTaP, Unspecified Unknown Completed Univers ity of Formulation [facility] DTaP, Unspecified Unknown Completed Univers ity of Formulation [facility] DTaP, Unspecified Unknown Completed Univers ity of Formulation [facility] HEPA,NOS Unknown Completed [facility] HEPATITIS A Unknown Completed [facility] HIB 4 Dose Schedule Unknown Completed Unive rsity [facility] HIB 4 Dose Schedule Unknown Completed Unive rsity [facility] Meningococcal Unknown Completed University of Polysaccharide [place] [facility] (groups A, C, Y and Branc h W-135) conjugate vaccine (MCV4P) Pneumococcal 7 Unknown Completed University of Conjugate, PCV7 [facility] [place] ical (Prevnar7) Branch IPV Unknown Completed [facility] IPV Unknown Completed [facility] IPV Unknown Completed [facility] IPV Unknown Completed [facility] TDAP Unknown Completed [facility] DTAP Unknown Completed [facility] DTAP Unknown Completed [facility] DTAP Unknown Completed [facility] DTAP Unknown Completed [facility] HIB 3 Dose Schedule Unknown Completed Unive rsity [facility] HIB 3 Dose Schedule Unknown Completed Unive rsity [facility] Hepatitis A Adult Unknown Completed Univers ity [facility] Hepatitis A Adult Unknown Completed Univers ity [facility] Hep B, Adol or Pedi Unknown Completed Unive rsity of Dosage [facility] Hep B, Adol or Pedi Unknown Completed Unive rsity of Dosage [facility] Hep B, Adol or Pedi Unknown Completed Unive rsity of Dosage [facility] Meningococcal Unknown Completed University Vaccine [facility] MMR Unknown Completed [facility] MMR Unknown Completed [facility] Pneumococcal 13 Unknown Completed Universit [facility] of Conjugate, PCV13 [facility] dical (Prevnar 13) Branch Polio (IPV/OPV) Unknown Completed Universit y [facility] Polio (IPV/OPV) Unknown Completed Universit y of [facility] Polio (IPV/OPV) Unknown Completed Universit y [facility] Polio (IPV/OPV) Unknown Completed Universit y [facility] TDAP Unknown Completed [facility] Varicella Unknown Completed [facility] of (varivax)(chicken [place] [facility] ed[facility] pox) Branch Varicella Unknown Completed [facility] (varivax)(chicken [place] [facility] pox) Branch Meningococcal B, OMV Unknown Completed Univ ersity [facility] Influenza Virus Unknown Completed Universit y of Vaccine Quad .5 mL [facility] 6+ MO Branch (FLUZONE/FLULAVAL/FL UARIX) TDAP Unknown Completed [facility] DTaP, Unspecified Unknown Completed Univers ity of Formulation [facility] DTaP, Unspecified Unknown Completed Univers ity of Formulation [facility] DTaP, Unspecified Unknown Completed Univers ity of Formulation [facility] DTaP, Unspecified Unknown Completed Univers ity of Formulation [facility] HEPA,NOS Unknown Completed [facility] HEPATITIS A Unknown Completed [facility] HIB 4 Dose Schedule Unknown Completed Unive rsity [facility] HIB 4 Dose Schedule Unknown Completed Unive rsity [facility] Meningococcal Unknown Completed [facility] lottie (groups A, C, Y and Branc h W-135) conjugate vaccine (MCV4P) Pneumococcal 7 Unknown Completed [facility] Conjugate, PCV7 [facility] [place] ical (Prevnar7) Branch IPV Unknown Completed [facility] IPV Unknown Completed [facility] IPV Unknown Completed [facility] IPV Unknown Completed [facility] TDAP Unknown Completed [facility] DTAP Unknown Completed [facility] DTAP Unknown Completed [facility] DTAP Unknown Completed [facility] DTAP Unknown Completed [facility] HIB 3 Dose Schedule Unknown Completed Unive rsity [facility] HIB 3 Dose Schedule Unknown Completed Unive rsity [facility] Hepatitis A Adult Unknown Completed Univers ity [facility] Hepatitis A Adult Unknown Completed Univers ity [facility] Hep B, Adol or Pedi Unknown Completed Unive rsity of Dosage [facility] Hep B, Adol or Pedi Unknown Completed Unive rsity of Dosage [facility] Hep B, Adol or Pedi Unknown Completed Unive rsity of Dosage [facility] Meningococcal Unknown Completed University Vaccine [facility] MMR Unknown Completed [facility] MMR Unknown Completed [facility] Pneumococcal 13 Unknown Completed Universit y of Conjugate, PCV13 [facility] dical (Prevnar 13) Branch Polio (IPV/OPV) Unknown Completed Universit y [facility] Polio (IPV/OPV) Unknown Completed Universit y [facility] Polio (IPV/OPV) Unknown Completed Universit y [facility] Polio (IPV/OPV) Unknown Completed Universit y [facility] TDAP Unknown Completed [facility] Varicella Unknown Completed [facility] of (varivax)(chicken [place] [facility] ed[facility] pox) Branch Varicella Unknown Completed [facility] (varivax)(chicken [place] [facility] pox) Branch Meningococcal B, OMV Unknown Completed Univ ersity [facility] Influenza Virus Unknown Completed Universit y of Vaccine Quad .5 mL [facility] 6+ [place] Branch (FLUZONE/FLULAVAL/FL UARIX) TDAP Unknown Completed [facility] DTaP, Unspecified Unknown Completed Univers ity of Formulation [facility] DTaP, Unspecified Unknown Completed Univers ity of Formulation [facility] DTaP, Unspecified Unknown Completed [facility] DTaP, Unspecified Unknown Completed [facility]y [facility] HEPA,NOS Unknown Completed [facility] HEPATITIS A Unknown Completed [facility] HIB 4 Dose Schedule Unknown Completed Unive rsity [facility] HIB 4 Dose Schedule Unknown [facility] Mening[facility] Unknown Completed [facility] (groups A, C, Y and Branc h W-135) conjugate vaccine (MCV4P) Pneumococcal 7 Unknown Completed [facility] Conjugate, PCV7 [facility] ical (Prevnar7) Branch IPV Unknown Completed [facility] IPV Unknown Completed [facility] IPV Unknown Completed [facility] IPV Unknown Completed [facility] DTAP Unknown Completed [facility] DTAP Unknown Completed [facility] DTAP Unknown Completed [facility] DTAP Unknown Completed [facility] HIB 3 Dose Schedule Unknown [facility] D[facility]atitis A Adult Unknown Completed Univers ity [facility] Hepatitis A Adult Unknown Completed Univers ity [facility] Hep B, Adol or Pedi Unknown Completed Unive rsity of Dosage [facility] Hep B, Adol or Pedi Unknown Completed Unive rsity of Dosage [facility] Hep B, Adol or Pedi Unknown Completed Unive rsity of Dosage [facility] Meningococcal Unknown Completed [place] of Vaccine [facility] MMR Unknown Completed [facility] MMR Unknown Completed [facility] Pneumococcal 13 Unknown Completed Universit y of Conjugate, PCV13 [facility] dical (Prevnar 13) Branch Polio (IPV/OPV) Unknown Completed Universit y [facility] Polio (IPV/OPV) Unknown Completed Universit y [facility] Polio (IPV/OPV) Unknown Completed Universit y [facility] Polio (IPV/OPV) Unknown Completed Universit [facility] TDAP Unknown Completed [facility] Varicella Unknown Completed University of (varivax[place] [place] [facility] pox) Branch Varicella Unknown Completed University of (varivax)(ch[facility] [place] [facility] pox) Branch Meningococcal B, OMV Unknown Completed Univ [facility] Influenza Virus Unknown Completed Universit y of Vaccine Quad .5 mL [facility] IM 6+ MO Branch (FLUZONE/FLULAVAL/FL UARIX) TDAP Unknown Completed [facility] DTaP, Unspecified Unknown Completed [facility]y [facility] Form[facility] DTaP, Unspecified Unknown Completed [facility] DTaP, Unspecified Unknown Completed [facility] Form[facility] DTaP, Unspecified Unknown Completed [facility] HEPA,NOS Unknown Completed [facility] HEPATITIS A Unknown Completed [facility] HIB 4 Dose Schedule Unknown Completed [facility] HIB 4 Dose Schedule Unknown Completed [facility] Meningococcal Unknown Completed [facility] (groups A, C, Y and Branc h W-135) conjugate vaccine (MCV4P) Pneumococcal 7 Unknown Completed [facility] Conjugate, PCV7 [facility] ical (Prevnar7) Branch IPV Unknown Completed [facility] IPV Unknown Completed [facility] IPV Unknown Completed [facility] IPV Unknown Completed [facility] Vital Signs Vital Name Observation Time Observation Value Comments Source Systolic blood 2022-08-12 15:38:00 123 mm[Hg] [facility] Diastolic blood 2022-08-12 15:38:00 81 mm[Hg] [facility] Heart rate 2022-08-12 15:38:00 92 /min [facility] Body temperature 2022-08-12 15:38:00 35.83 Nabila [facility] Respiratory rate 2022-08-12 15:38:00 18 /min [facility] Body height 2022-08-12 15:38:00 167.6 cm [facility] Body weight 2022-08-12 15:38:00 80.377 kg [facility] BMI 2022-08-12 15:38:00 28.60 kg/m2 [facility] Systolic blood 2022-08-01 15:20:00 134 mm[Hg] [facility] [place] Diastolic blood 2022-08-01 15:20:00 90 mm[Hg] Unive rsity of pressure [facility] Branch Heart rate 2022-08-01 14:55:00 91 /min Universi ty of [facility] Branch Body temperature 2022-08-01 14:55:00 36.5 Nabila Univ ersity of [facility] Branch Respiratory rate 2022-08-01 14:55:00 17 /min Univ ersity of [facility] Body height 2022-08-01 14:55:00 167.6 cm [facility] [place] [facility] Body weight 2022-08-01 14:55:00 81.874 kg [facility] [place] [facility] BMI 2022-08-01 14:55:00 29.13 kg/m2 Universi ty of [facility] Branch Systolic blood 2022-07-29 16:00:00 131 mm[Hg] Univer sity of pressure [facility] Branch Diastolic blood 2022-07-29 16:00:00 77 mm[Hg] Unive rsity of [facility] Branch Respiratory rate 2022-07-29 15:56:00 18 /min Univ ersity of [facility] Branch Heart rate 2022-07-29 12:15:00 112 /min Universi ty of [facility] Branch Oxygen saturation in 2022-07-29 12:15:00 96 /min University of Arterial blood by [facility] Pulse oximetry [place] Body temperature 2022-07-29 10:00:00 36.89 Nabila Univ ersity of [facility] Body height 2022-07-29 03:10:00 167.6 cm [facility] [place] [facility] [place] Body weight 2022-07-29 03:10:00 83.643 kg [facility] [place] [facility] BMI 2022-07-29 03:10:00 29.76 kg/m2 Universi ty of [facility] Systolic blood 2022-07-25 13:45:00 140 mm[Hg] Univer sity of pressure [facility] Branch Diastolic blood 2022-07-25 13:45:00 97 mm[Hg] Unive rsity of pressure [facility] Branch Heart rate 2022-07-25 12:15:00 92 /min Universi ty of [facility] Body temperature 2022-07-25 12:15:00 36.67 Nablia Univ ersity of [facility] Branch Respiratory rate 2022-07-25 12:15:00 18 /min Univ ersity [facility] [place] [facility] Oxygen saturation in 2022-07-25 12:15:00 100 /min University of Arterial blood by [facility] lottie Pulse oximetry Branch Body height 2022-07-24 14:30:00 167.6 cm [facility] [place] [facility] Systolic blood 2022-07-23 18:30:00 130 mm[Hg] Univer sity of pressure [place] [facility] Diastolic blood 2022-07-23 18:30:00 84 mm[Hg] Unive rsity of pressure [place] [facility] Heart rate 2022-07-23 18:30:00 115 /min [facility]i ty [facility] [place] [facility] Body temperature 2022-07-23 18:30:00 36.94 Nabila Univ ersity [facility] [place] [facility] Respiratory rate 2022-07-23 18:30:00 18 /min Univ ersity [facility] [place] [facility] Oxygen saturation in 2022-07-23 18:30:00 99 /min University of Arterial blood by [facility] Pulse oximetry Branch Body height 2022-07-21 15:36:00 167.6 cm [facility] [place] [facility] Body weight 2022-07-21 15:36:00 89.359 kg [facility]i [facility] [place] [facility] BMI 2022-07-21 15:36:00 31.80 kg/m2 [facility] [place] [facility] Systolic blood 2022-07-21 18:00:00 131 mm[Hg] Univer sity of pressure [place] [facility] Diastolic blood 2022-07-21 18:00:00 84 mm[Hg] Unive rsity of pressure [facility] Heart rate 2022-07-21 18:00:00 104 /min [facility] [place] [facility] Body temperature 2022-07-21 18:00:00 36.56 Nabila Univ ersity of [place] [facility] Respiratory rate 2022-07-21 18:00:00 18 /min Univ ersity [facility] [place] [facility] Oxygen saturation in 2022-07-21 18:00:00 100 /min University of Arterial blood by [facility] Pulse oximetry Branch Body height 2022-07-21 15:36:00 167.6 cm [facility] [place] [facility] Body weight 2022-07-21 15:36:00 89.359 kg [facility] [place] [facility] BMI 2022-07-21 15:36:00 31.80 kg/m2 [facility] [place] [facility] Systolic blood 2022-07-17 17:09:00 103 mm[Hg] Univer sity of pressure [place] [facility] Diastolic blood 2022-07-17 17:09:00 51 mm[Hg] Unive rsity of pressure [place] [facility] Heart rate 2022-07-17 17:09:00 82 /min [facility]i [facility] [place] [facility] Body temperature 2022-07-17 17:09:00 36.56 Nabila Univ ersity of [place] [facility] Respiratory rate 2022-07-17 17:09:00 16 /min Univ ersity of [place] [facility] Oxygen saturation in 2022-07-17 17:09:00 99 /min University of Arterial blood by [place] [employer] lottie Pulse oximetry Branch Body height 2022-07-17 15:58:00 167.6 cm 5' 6" [facility] [place] [facility] Body weight 2022-07-17 15:58:00 87.816 kg 193.6lb [facility] [place] [facility] BMI 2022-07-17 15:58:00 31.25 kg/m2 [facility] [place] [facility] Systolic blood 2022-07-11 06:00:00 121 mm[Hg] Univer sity of pressure [place] [facility] Diastolic blood 2022-07-11 06:00:00 68 mm[Hg] Unive rsity of pressure [place] [facility] Heart rate 2022-07-11 06:00:00 100 /min [facility]i ty [facility] [place] [facility] Oxygen saturation in 2022-07-11 06:00:00 99 /min University of Arterial blood by [place] [employer] lottie Pulse oximetry Branch Body temperature 2022-07-11 04:00:00 36.78 Nabila Univ ers[facility] [place] [facility] Respiratory rate 2022-07-11 04:00:00 18 /min Univ ersity [facility] [place] [facility] Body height 2022-07-11 04:00:00 167.6 cm [facility] [place] [facility] Body weight 2022-07-11 04:00:00 89.313 kg [facility] [place] [facility] BMI 2022-07-11 04:00:00 31.78 kg/m2 [facility] [place] [facility] Systolic blood 2022-07-08 19:21:00 133 mm[Hg] Univer sity of pressure [place] [facility] Diastolic blood 2022-07-08 19:21:00 79 mm[Hg] Unive rsity of pressure [facility] Heart rate 2022-07-08 19:21:00 94 /min Universi ty of [facility] Body temperature 2022-07-08 19:21:00 36.22 Nabila Univ ersity of [facility] Respiratory rate 2022-07-08 19:21:00 18 /min Univ ersity of [facility] Body height 2022-07-08 19:21:00 167.6 cm Universi ty of [facility] Body weight 2022-07-08 19:21:00 86.909 kg Universi ty of [facility] BMI 2022-07-08 19:21:00 30.93 kg/m2 Universi ty of [facility] Heart rate 2022-07-06 09:15:00 96 /min Universi ty of [facility] Oxygen saturation in 2022-07-06 09:15:00 99 /min University of Arterial blood by [facility] Pulse oximetry Branch Systolic blood 2022-07-06 05:20:00 121 mm[Hg] Univer sity of pressure [facility] Diastolic blood 2022-07-06 05:20:00 70 mm[Hg] Unive rsity of pressure [facility] Body temperature 2022-07-06 05:20:00 37.06 Nabila Univ ersity of [facility] Body height 2022-07-06 05:20:00 167.6 cm Universi ty of [facility] Body weight 2022-07-06 05:20:00 86.637 kg Universi ty of [facility] BMI 2022-07-06 05:20:00 30.83 kg/m2 Universi ty of [facility] Respiratory rate 2022-07-06 05:01:00 16 /min Univ ersity of [facility] Systolic blood 2022-06-23 19:46:00 135 mm[Hg] Univer sity of pressure [facility] Diastolic blood 2022-06-23 19:46:00 85 mm[Hg] Unive rsity of pressure [facility] Heart rate 2022-06-23 19:46:00 102 /min Universi ty of [facility] Body temperature 2022-06-23 19:46:00 36.11 Nabila Univ ersity [facility] [place] [facility] Respiratory rate 2022-06-23 19:46:00 18 /min Univ ersity [facility] [place] [facility] Body height 2022-06-23 19:46:00 167.6 cm [facility] [place] [facility] Body weight 2022-06-23 19:46:00 85.004 kg [facility] [place] [facility] BMI 2022-06-23 19:46:00 30.25 kg/m2 [facility] [place] [facility] Systolic blood 2022-06-09 18:04:00 110 mm[Hg] Univer sity of pressure [facility] Diastolic blood 2022-06-09 18:04:00 60 mm[Hg] Unive rsity of pressure [facility] Heart rate 2022-06-09 17:59:00 112 /min [facility] [place] [facility] Body temperature 2022-06-09 17:57:00 36.28 Nabila Univ ers[facility] [place] [facility] Respiratory rate 2022-06-09 17:57:00 18 /min Univ ersity [facility] [place] [facility] Body height 2022-06-09 17:57:00 170.2 cm [facility] [place] [facility] Body weight 2022-06-09 17:57:00 85.911 kg [facility] [place] [facility] BMI 2022-06-09 17:57:00 29.66 kg/m2 [facility] [place] [facility] Body temperature 2022-06-02 15:34:00 36.72 Nabila Univ ers[facility] [place] [facility] Body weight 2022-06-02 15:34:00 85.73 kg [facility] [place] [facility] BMI 2022-06-02 15:34:00 30.51 kg/m2 [facility] [place] [facility] Systolic blood 2022-05-26 15:34:00 111 mm[Hg] Univer sity of pressure [facility] Diastolic blood 2022-05-26 15:34:00 71 mm[Hg] Unive rsity of pressure [facility] Heart rate 2022-05-26 15:34:00 87 /min [facility] [place] [facility] Body temperature 2022-05-26 15:34:00 36.33 Nabila Univ [facility] [place] [facility] Respiratory rate 2022-05-26 15:34:00 18 /min Univ ersity [facility] [place] [facility] Body height 2022-05-26 15:34:00 167.6 cm [facility] [place] [facility] Body weight 2022-05-26 15:34:00 85.73 kg [facility] [place] [facility] BMI 2022-05-26 15:34:00 30.51 kg/m2 [facility] [place] [facility] Body temperature 2022-05-19 15:46:00 36.17 Nabila Univ [facility] [place] [facility] Body weight 2022-05-19 15:46:00 85.095 kg [facility] [place] [facility] BMI 2022-05-19 15:46:00 30.28 kg/m2 [facility] [place] [facility] Systolic blood 2022-05-12 20:15:00 122 mm[Hg] Univer sity of pressure [facility] Diastolic blood 2022-05-12 20:15:00 67 mm[Hg] Unive rsity of pressure [facility] Heart rate 2022-05-12 20:15:00 85 /min [facility] [place] [facility] Body temperature 2022-05-12 20:15:00 35.83 Nabila Univ [facility] [place] [facility] Respiratory rate 2022-05-12 20:15:00 18 /min Univ ersity [facility] [place] [facility] Body height 2022-05-12 20:15:00 167.6 cm [facility] [place] [facility] Body weight 2022-05-12 20:15:00 83.961 kg [facility] [place] [facility] BMI 2022-05-12 20:15:00 29.88 kg/m2 [facility] [place] [facility] Body temperature 2022-05-05 16:37:00 36.56 Nabila [facility] [place] [facility] Body weight 2022-05-05 16:37:00 83.553 kg [facility] [place] [facility] Systolic blood 2022-04-28 17:19:00 128 mm[Hg] Univer sity of pressure [place] [facility] Diastolic blood 2022-04-28 17:19:00 73 mm[Hg] Unive rsity of pressure [place] [facility] Heart rate 2022-04-28 17:19:00 87 /min [facility] [place] [facility] Body temperature 2022-04-28 17:19:00 37.06 Nabila [facility] [place] [facility] Respiratory rate 2022-04-28 17:19:00 18 /min Univ ers[facility] [place] [facility] Body weight 2022-04-28 17:19:00 82.736 kg [facility] [place] [facility] Body temperature 2022-04-21 16:16:00 36.61 [...] 2022-04-14 16:55:00 36.78 Nabila [facility] [place] [facility] Respiratory rate 2022-04-14 16:55:00 16 /min Univ ersity [facility] [place] [facility] Body height 2022-04-14 16:55:00 167.6 [...] 2022-03-31 15:59:00 82 /min [facility] [place] [facility] Body temperature 2022-03-31 15:59:00 37.11 Nabila [facility] [place] [facility] Respiratory rate 2022-03-31 15:59:00 18 /min Univ ers[facility] [place] [facility] Body height 2022-03-31 15:59:00 167.6 cm [facility] [place] [facility] Body weight 2022-03-31 15:59:00 76.885 kg [facility] [place] [facility] BMI 2022-03-31 15:59:00 27.36 kg/m2 [facility] [place] [facility] Body temperature 2022-03-24 15:55:00 36.61 Nabila [facility] [place] [facility] Respiratory rate 2022-03-24 15:55:00 18 /min Univ ersity [facility] [place] [facility] Body weight 2022-03-24 15:55:00 75.796 kg [facility] [place] [facility] Systolic blood 2022-03-10 17:15:00 116 mm[Hg] Univer sity of pressure [facility] Diastolic blood 2022-03-10 17:15:00 74 mm[Hg] Unive rsity of pressure [facility] Heart rate 2022-03-10 17:15:00 77 /min [facility] [place] [facility] Body temperature 2022-03-10 17:15:00 36.94 Nabila [facility] [place] [facility] Respiratory rate 2022-03-10 17:15:00 20 /min Univ ers[facility] [place] [facility] Body height 2022-03-10 17:15:00 167.6 cm [facility] [place] [facility] Body weight 2022-03-10 17:15:00 72.938 kg [facility] [place] [facility] BMI 2022-03-10 17:15:00 25.95 kg/m2 [facility] [place] [facility] Systolic blood 2022-02-24 16:18:00 109 mm[Hg] Univer sity of pressure [facility] Diastolic blood 2022-02-24 16:18:00 68 mm[Hg] Unive rsity of pressure [facility] Heart rate 2022-02-24 16:18:00 83 /min [facility] [place] [facility] Body temperature 2022-02-24 16:18:00 36.44 Nabila [facility] [place] [facility] Respiratory rate 2022-02-24 16:18:00 18 /min Univ ers[facility] [place] [facility] Body height 2022-02-24 16:18:00 167.6 cm [facility] [place] [facility] Body weight 2022-02-24 16:18:00 69.673 kg [facility] [place] [facility] BMI 2022-02-24 16:18:00 24.79 kg/m2 [facility] [place] [facility] Systolic blood 2022-02-10 19:32:00 135 mm[Hg] Univer sity of pressure [facility] Diastolic blood 2022-02-10 19:32:00 90 mm[Hg] Unive rsity of pressure [facility] Heart rate 2022-02-10 19:32:00 130 /min [facility] [place] [facility] Body temperature 2022-02-10 19:32:00 36.89 Nabila [facility] [place] [facility] Respiratory rate 2022-02-10 19:32:00 20 /min Univ ers[facility] [place] [facility] Body height 2022-02-10 19:32:00 167.6 cm [facility] [place] [facility] Body weight 2022-02-10 19:32:00 71.215 kg [facility] [place] [facility] BMI 2022-02-10 19:32:00 25.34 kg/m2 [facility] Systolic blood 2022-01-27 15:32:00 127 mm[Hg] Univer sity of pressure [facility] Diastolic blood 2022-01-27 15:32:00 77 mm[Hg] Unive rsity of pressure [facility] Heart rate 2022-01-27 15:32:00 99 /min [facility] [place] [facility] Body temperature 2022-01-27 15:32:00 36.22 Nabila [facility] [place] [facility] Respiratory rate 2022-01-27 15:32:00 20 /min Univ ers[facility] [place] [facility] Body height 2022-01-27 15:32:00 167.6 cm [facility] [place] [facility] Body weight 2022-01-27 15:32:00 70.988 kg [facility] [place] [facility] BMI 2022-01-27 15:32:00 25.26 kg/m2 [facility] Systolic blood 2021-12-23 14:24:00 118 mm[Hg] Univer sity of pressure [facility] Diastolic blood 2021-12-23 14:24:00 77 mm[Hg] Unive rsity of pressure [facility] Heart rate 2021-12-23 14:24:00 87 /min [facility] [place] [facility] Body temperature 2021-12-23 14:24:00 37 Nabila [facility] Respiratory rate 2021-12-23 14:24:00 18 /min Univ ers[facility] Body height 2021-12-23 14:24:00 167.6 cm [facility] Body weight 2021-12-23 14:24:00 70.761 kg [facility] [place] [facility] BMI 2021-12-23 14:24:00 25.18 kg/m2 [facility] [place] [facility] Systolic blood 2021-12-09 14:24:00 118 mm[Hg] Univer sity of pressure [facility] Diastolic blood 2021-12-09 14:24:00 79 mm[Hg] Unive rsity of pressure [facility] Heart rate 2021-12-09 14:24:00 88 /min [facility] Body temperature 2021-12-09 14:24:00 36.67 Nabila [facility] Respiratory rate 2021-12-09 14:24:00 16 /min Univ ers[facility] Body height 2021-12-09 14:24:00 167.6 cm [facility] Body weight 2021-12-09 14:24:00 72.53 kg [facility] [place] [facility] BMI 2021-12-09 14:24:00 25.81 kg/m2 [facility] Oxygen saturation in 2021-12-09 14:24:00 97 /min University of Arterial blood by [facility] Pulse oximetry Branch Systolic blood 2021-10-12 18:17:00 124 mm[Hg] Univer sity of pressure [facility] Diastolic blood 2021-10-12 18:17:00 90 mm[Hg] Unive rsity of pressure [facility] Heart rate 2021-10-12 18:17:00 112 /min [facility] Body temperature 2021-10-12 18:17:00 37.11 Nabila [facility] Respiratory rate 2021-10-12 18:17:00 20 /min [facility] Body height 2021-10-12 18:17:00 167.6 cm [facility] Body weight 2021-10-12 18:17:00 68.04 kg [facility] BMI 2021-10-12 18:17:00 24.21 kg/m2 [facility] Procedures Procedure Date / Time Performing Clinician Source Performed PROTEIN CREAT RATIO 2022-07-29 05:00:00 Kasey Blanco [facility] URINE RANDOM [facility] CBC WITH DIFF 2022-07-25 10:37:00 Kasey Blanco [facility] COMP. METABOLIC PANEL 2022-07-25 03:06:00 Kasey Blanco [facility] ([id number]) [facility] CBC WITH DIFF 2022-07-25 03:06:00 Kasey Blanco [facility] PROTEIN CREAT RATIO 2022-07-25 03:06:00 Kasey Blanco [facility] URINE RANDOM [facility] CBC WITH DIFF 2022-07-22 08:27:00 Adum, Hetal Mario [facility] CBC WITH DIFF 2022-07-22 08:27:00 Adum, Hetal Mario [facility] SECTION 2022-07-21 18:36:00 Adum, Hetal Mario [facility] SECTION 2022-07-21 18:36:00 Adum, Hetal Mario [facility] URINE DRUG (IMMUNOASSAY) 2022-07-21 18:12:00 Adum, Hetal Avendano [facility] SCREEN W/O REFLEX URINE DRUG (IMMUNOASSAY) 2022-07-21 18:12:00 Adum, Hetal Avendano [facility] SCREEN W/O REFLEX CBC WITH DIFF 2022-07-21 16:52:00 Adum, Hetal Mario [facility] HEPATITIS B SURFACE 2022-07-21 16:52:00 Adum, Hetal Mario [facility] ANTIGEN [facility] HB ABO GROUPING 2022-07-21 16:52:00 Adum, Hetal Mario [facility] ADC OR [place] ONLY - 2022-07-21 16:52:00 Adum, Hetal Mario [facility] HIV 1/2 AG-AB WITH 2022-07-21 16:52:00 Adum, Hetal Mario [facility] REFLEX [facility] CBC WITH DIFF 2022-07-21 16:52:00 Adum, Hetal Mario [facility] HEPATITIS B SURFACE 2022-07-21 16:52:00 Adum, Hetal Mario [facility] ANTIGEN [facility] HB ABO GROUPING 2022-07-21 16:52:00 Adum, Hetal Mario [facility] ADC OR [place] ONLY - 2022-07-21 16:52:00 Adum, Hetal Mario [facility] HIV 1/2 AG-AB WITH 2022-07-21 16:52:00 Adum, Hetal Mario [facility] REFLEX [facility] RHO (D) IMMUNE GLOBULIN 2022-07-21 16:52:00 Tony Blanco [facility] ADC ONLY - FERN TEST 2022-07-21 16:06:00 Adum, Hetal Mario [facility] ADC ONLY - FERN TEST 2022-07-21 16:06:00 Adum, Hetal Mario [facility] CONSENT/REFUSAL FOR 2022-07-21 15:31:39 Doctor Unassigned, No [facility] [place] [facility] CONSENT/REFUSAL FOR 2022-07-21 15:31:39 Doctor Unassigned, No [facility] [place] [facility] Name [facility] URINALYSIS 2022-07-17 16:35:00 Adum, Hetal Mario [facility] ADC ONLY - FERN TEST 2022-07-17 16:35:00 Adum, Hetal Mario [facility] URINALYSIS 2022-07-11 06:30:00 Austin Arzola [place] [facility] ADC CLC OR LCC ONLY - 2022-07-11 06:30:[address] [facility] NOTICE OF PRIVACY 2022-07-11 03:43:30 Doctor Unassigned, No [facility] PRACTICES [facility] CONSENT/REFUSAL FOR 2022-07-11 03:43:01 Doctor Unassigned, No [facility] DIAGNOSIS AND TREATMENT [facility] ASSIGNMENT OF BENEFITS 2022-07-11 03:42:40 Doctor Unassigned, No [facility] POCT URINALYSIS 2022-07-08 19:23:00 Antonette Solano [facility] L&D VISIT 2022-07-06 05:01:00 Doctor Unassigned, No [facility] (NON-DELIVERED) [facility] ASSIGNMENT OF BENEFITS 2022-07-06 04:55:57 Doctor Unassigned, No [facility] POCT URINALYSIS 2022-06-23 19:48:00 Antonette Solano [facility] POCT URINALYSIS 2022-06-09 18:04:00 Antonette Solano [facility] TDAP VACCINE, >11 YRS, 2022-05-26 15:59:59 Tushar Lan [facility] GLUCOSE 1 HOUR POST 2022-05-12 21:16:00 Tushar Lan [facility] CBC WITH DIFF 2022-05-12 21:16:00 Tushar Lan [facility] POCT URINALYSIS 2022-05-12 20:18:00 Antonette Solano [facility] POCT URINALYSIS 2022-04-28 17:24:00 Antonette Solano [facility] SECOND AND THIRD 2022-04-14 15:44:00 Antonette Solano [facility] TRIMESTER ULTRASOUND Medical [facility] POCT URINALYSIS 2022-03-31 16:02:00 Antonette Solano [facility] POCT URINALYSIS 2022-03-10 00:00:00 Antonette Solano [facility] POCT URINALYSIS 2022-02-24 16:30:00 Antonette Solano [facility] POCT URINALYSIS 2022-02-10 00:00:00 Antonette Solano [facility] POCT URINALYSIS 2022-01-27 15:33:00 Antonette Solano [facility] REPORT OF 2021-12-23 05:01:00 Doctor Unassigned, No [facility] POCT TEST 2021-12-23 00:00:00 Antonette Solano [facility] POCT URINALYSIS W/O 2021-12-23 00:00:00 Antonette Solano [facility] US FIRST 2021-12-14 21:24:20 Sara Snyder [facility] TRIMESTER LESS THAN 14 Medical [facility] WEEKS WITH TRANSVAGINAL ASSIGNMENT OF BENEFITS 2021-12-14 19:54:43 Doctor Unassigned, No [facility] POCT TEST 2021-12-09 00:00:00 Sara Snyder [facility] POCT TEST 2021-10-12 18:22:00 Tushar [facility] Encounters Start End Encounter Admission Attending Care Care Encounter Source Date/Time Date/Time Type Type Clinicians Facility Department ID 2022-07-24 Outpatient P KASEY BLANCO [facility] ELIAZAR [id number] Univers 07:39:17 KASEY BLANCO [facility] 2022-07-11 Outpatient X [facility] ELIAZAR [id number] Univers 03:19:31 [facility] 2020-12-27 Emergency [facility] [id number] Univers 22:10:58 [facility] 2020-12-27 Emergency [facility] [id number] Univers 22:10:57 ity of [facility] 2020-12-27 Outpatient P [facility] ELIAZAR [id number] Univers 19:19:43 ity of [facility] 2020-12-27 Outpatient P [facility] ELIAZAR [id number] Univers 19:19:36 ity of [facility] 2022-12-08 2022-12-08 Outpatient R AKINSIPE, [facility] [id number] Univers 14:45:00 14:45:00 TUSHAR ity o f [facility] 2022-09-07 2022-09-07 Outpatient R AKINSIPE, [facility] [id number] Univers 15:15:00 16:22:49 TUHSAR ity o f [facility] 2022-08-29 2022-08-29 Telephone [facility] 1.2.840.114 [id number] Univers 00:00:00 00:00:00 Tushar C CASCADE OPERATOR 350.1.13.10 ity of REGIONAL 4.2.7.2.686 Jamal as MATERNAL [id number] Med ical & CHILD [address] [place] [address] 2022-08-29 2022-08-29 Telephone [facility] 1.2.840.114 10 [id number] Univers 00:00:00 00:00:00 Tushar C CASCADE OPERATOR 350.1.13.10 ity of REGIONAL 4.2.7.2.686 Jamal as MATERNAL [id number] [facility] ical & CHILD [address] [place] [address] 2022-08-12 2022-08-12 Outpatient R AKINSIPE, [facility] [id number] Univers 10:00:00 11:16:38 TUSHAR ity o [facility] 2022-08-12 2022-08-12 Routine Akinpe, [facility] 1.2.098.404 [id number] Univers 10:00:00 11:16:38 Tushar C CASCADE OPERATOR 350.1.13.10 ity of Visit REGIONAL 4.2.7.2.686 Jamal as MATERNAL [id number] [facility] ical & CHILD [address] [place] [address] 2022-08-01 2022-08-01 Nurse Visit, [facility] Nurse [facility] 1.2 .840.114 [id number] Univers 09:30:00 10:21:06 Visit OliverjohnathanStevenTushar C CASCADE OPERATOR 350.1.13. 10 ity of [facility] 4.2.7.2.686 Jamal as MATERNAL [id number] [facility] & [address] 2022-08-01 2022-08-01 Outpatient R RIKY [facility] [id number] Univers 09:30:00 09:30:00 TUSHAR ity o f [facility] 2022-08-01 2022-08-01 Patient Riky [facility] 1.2.253.992 [id number] Univers 00:00:00 00:00:00 Secure Msg Tushar C CASCADE OPERATOR 350.1.13.10 ity [facility] 4.2.7.2.686 Jamal as MATERNAL [id number] [facility] & [address] 2022-08-01 2022-08-01 Patient Riky [facility] 1.2.947.614 [id number] Univers 00:00:00 00:00:00 Secure Msg Tushar C CASCADE OPERATOR 350.1.13.10 ity of [facility] 4.2.7.2.686 Jamal as MATERNAL [id number] [address] 2022-07-28 2022-07-29 Outpatient P JR [facility] ELIAZAR [id number] Univers 20:06:00 12:45:00 HETAL rizo [facility] 2022-07-28 2022-07-29 [facility] 1.2 .840.114 [id number] Univers 20:06:00 12:45:00 Encounter Hetal Norris 350.1.13.10 ity [facility] 4.2.7.2.686 [facility] [id number] [address] 2022-07-27 2022-07-27 Nurse MOSHE Nova 1.2.840.114 [id number] Univers 00:00:00 00:00:00 Triage Patt ESPINAL 350.1.13.10 it y of [facility] 4.2.7.2.686 Jamal as [id number] [facility] [address] 2022-07-26 2022-07-26 [facility] 1.2.840.114 10 [id number] Univers 00:00:00 00:00:00 Tushar Lund CASCADE OPERATOR 350.1.13.10 ity [facility] 4.2.7.2.686 Jamal as MATERNAL [id number] [facility] ical & CHILD [address] [place] [address] 2022-07-24 2022-07-25 Outpatient P KASEY BLANCO [facility] G YN [id number] Univers 09:28:00 12:30:00 TONY BLANCOL ity [facility] 2022-07-24 2022-07-25 [facility] 1.2.840.114 1 [id number] Univers 09:28:00 12:30:00 Encounter sKasey 350.1.13.10 ity [facility] 4.2.7.2.686 [facility] [id number] [facility] [address] 2022-07-21 2022-07-23 Inpatient X [facility] ELIAZAR [id number] Univers 10:37:00 13:45:00 HETAL itspenser of [facility] 2022-07-21 2022-07-23 [facility] 1.2.840.114 [id number] Univers 10:37:00 13:45:00 Encounter Hetal HELLER 350.1.13.10 ity of [place] 4.2.7.2.686 [facility] [id number] [facility] [address] 2022-07-21 2022-07-21 Surgery [facility] 1.2.840.114 [id number] Univers 12:35:00 14:27:00 Hetal HELLER 350.1.13.10 ity of [place] 4.2.7.2.686 [facility] [id number] [facility] [address] 2022-07-21 2022-07-21 [facility] [id number] Univers 10:45:00 10:45:00 TUSHAR ity o f [facility] 2022-07-19 2022-07-19 Case Ad, [facility] 1.2.840.114 [id number] Univers 00:00:00 00:00:00 Management Hetal PEGUERORAVI 350.1.13.10 ity of [place].2.7.2.686 [place] [facility] [id number] [place] [facility] [address] [facility] 2022-07-17 2022-07-17 Outpatient X [facility], [facility] ELIAZAR [id number] Univers 10:38:00 12:40:00 HETAL ity of [facility] 2022-07-17 2022-07-17 Emergency [facility] 1.2.339.152 [id number] Univers 10:38:00 12:40:00 Hetal Fabiano HELLER 350.1.13.10 ity [facility] [place].2.7.2.686 [place] [id number] [address] 2022-07-10 2022-07-11 Outpatient X AUSTIN ARZOLA [facility] ELIAZAR [id number] Univers 22:46:00 03:10:00 ity of [facility] 2022-07-10 2022-07-11 Emergency Austin Arzola [facility] 1.2.840.114 10 [id number] Univers 22:46:00 03:10:00 Felix [facility] MARYVALERAVI 350.1.13.10 i ty [facility] 4.2.7.2.686 [place] [id number] [address] 2022-07-11 2022-07-11 Telephone [facility] 1.2.840.114 10 [id number] Univers 00:00:00 00:00:00 Tushar Lund CASCADE OPERATOR 350.1.13.10 ity of [facility] 4.2.7.2.686 Jamal as MATERNAL [id number] [facility] ical & CHILD [address] [place] [address] 2022-07-08 2022-07-08 [facility] [id number] Univers 14:15:00 14:41:47 TUSHAR ity o f [facility] 2022-07-08 2022-07-08 Routine Akinsipe, [facility] 1.2.297.696 [id number] Univers 14:15:00 14:41:47 Tushar C CASCADE OPERATOR 350.1.13.10 ity of Visit [facility] 4.2.7.2.686 Jamal as MATERNAL [id number] [facility] ical & CHILD [address] [place] [address] 2022-07-06 2022-07-06 Outpatient P ADUM, [facility] ELIAZAR [id number] Univers 00:06:00 04:42:00 HETAL ity of [facility] 2022-07-06 2022-07-06 Emergency Adum, [facility] 1.2.253.263 [id number] Univers 00:06:00 04:42:00 Hetal Fabiano LOTUS 350.1.13.10 ity of [place] 4.2.7.2.686 [place] [facility] [id number] [facility] [address] [place] 2022-07-06 2022-07-06 Orders Doctor MOSHE 1.2.840.114 [id number] Univers 00:00:00 00:00:00 Only Unassigned, TEDDY 350.1.13.10 ity of [facility] 4.2.7.2.686 Jamal as [id number] [facility] [address] [place] 2022-07-05 2022-07-05 Orders Doctor MOSHE 1.2.840.114 [id number] Univers 00:00:00 00:00:00 Only Unassigned, TEDDY 350.1.13.10 ity of [facility] 4.2.7.2.686 Jamal as [id number] [address] 2022-06-23 2022-06-23 Outpatient R AKINSIPE, [facility] [id number] Univers 14:45:00 15:08:35 TUSHAR ity o f [facility] 2022-06-23 2022-06-23 Routine Akinsipe, [facility] 1.2.676.835 [id number] Univers 14:45:00 15:08:35 Tushar C CASCADE OPERATOR 350.1.13.10 ity of Visit [facility] 4.2.7.2.686 Jamal as MATERNAL [id number] Med ical & CHILD [address] [place] [address] 2022-06-16 2022-06-16 Outpatient R AKINSIPE, [facility] [id number] Univers 13:00:00 13:00:00 TUSHAR ity o f [facility] 2022-06-09 2022-06-09 Outpatient R AKINSIPE, [facility] [id number] Univers 12:45:00 13:24:30 TUSHAR ity o f [facility] 2022-06-09 2022-06-09 Routine Akinsipe, [facility] 1.2.093.836 [id number] Univers 12:45:00 13:24:30 Tushar C CASCADE OPERATOR 350.1.13.10 ity of Visit REGIONAL 4.2.7.2.686 Jamal as MATERNAL [id number] [facility] & [address] 2022-06-02 2022-06-02 Nurse Visit, Satishp Nurse [facility] 1. .840.114 [id number] Univers 10:30:00 10:42:00 Visit Akinsipe, Tushar C CASCADE OPERATOR 350.1.13. 10 ity of REGIONAL 4.2.7.2.686 Jamal as MATERNAL [id number] [facility] & [address] 2022-06-02 2022-06-02 Outpatient R AKINSIPE, [facility] [id number] Univers 10:30:00 10:30:00 TUSHAR ity o f [facility] 2022-05-26 2022-05-26 Outpatient R AKINSIPE, [facility] [id number] Univers 10:30:00 11:07:20 TUSHAR ity o f [facility] 2022-05-26 2022-05-26 Routine Akinsipe, [facility] 1.2.794.128 [id number] Univers 10:30:00 11:07:20 Tushar C CASCADE OPERATOR 350.1.13.10 ity of Visit REGIONAL 4.2.7.2.686 Jamal as MATERNAL [id number] [facility] & CHILD [address] [place] [address] 2022-05-19 2022-05-19 [facility] 1.2 .840.114 [id number] Univers 10:30:00 11:03:10 Visit AkinSteven bryantilola C CASCADE OPERATOR 350.1.13. 10 ity of REGIONAL 4.2.7.2.686 Jamal as MATERNAL [id number] [facility] CH[facility] [address] [place] [address] 2022-05-19 2022-05-19 Outpatient R AKINSIPE, [facility] [id number] Univers 10:30:00 10:30:00 TUSHAR ity o [facility] 2022-05-12 2022-05-12 Outpatient R AKINSIPE, [facility] [id number] Univers 14:45:00 15:46:52 TUSHAR ity o [facility] 2022-05-12 2022-05-12 Routine Akinsipe, [facility] 1.2.462.910 [id number] Univers 14:45:00 15:46:52 Tushar C CASCADE OPERATOR 350.1.13.10 ity of Visit REGIONAL 4.2.7.2.686 Jamal as MATERNAL [id number] [facility] & CHILD [address] [place] [address] 2022-05-05 2022-05-05 Nurse Visit, Neftali Nurse [facility] 1.2 .840.114 [id number] Univers 10:30:00 10:45:51 Visit Mallybernyjohnathan Tushar C CASCADE OPERATOR 350.1.13. 10 ity of REGIONAL 4.2.7.2.686 Jamal as MATERNAL [id number] [facility] CHILD [address] [place] [address] 2022-05-05 2022-05-05 Outpatient R AKINSIPE, [facility] [id number] Univers 10:30:00 10:30:00 TUSHAR ity o [facility] 2022-04-28 2022-04-28 Outpatient R AKINSIPE, [facility] [id number] Univers 11:00:00 11:44:12 TUSHAR ity o f [facility] 2022-04-28 2022-04-28 Routine Akinsipe, [facility] 1.2.163.888 [id number] Univers 11:00:00 11:44:12 Tushar C CASCADE OPERATOR 350.1.13.10 ity of Visit REGIONAL 4.2.7.2.686 Jamal as MATERNAL [id number] [facility] [address] [place] [address] 2022-04-21 2022-04-21 [facility] 1.2 .840.[id number] [facility] 10:00:00 10:30:36 Visit Antonette Solano CASCADE OPERATOR 350.1.13.1 0 ity of REGIONAL 4.2.7.2.686 Jamal as MATERNAL [id number] [facility] & CHILD [address] [place] [address] 2022-04-21 2022-04-21 Outpatient R ENE [facility] [id number] Univers 10:00:00 10:00:00 ANTONETTE [facility] 2022-04-14 2022-04-14 Outpatient R ASYA [facility] [id number] Univers 09:15:00 11:39:36 SHEREEN [facility] 2022-04-14 2022-04-14 Routine Risk, Svo-Ejdlv-Px/High [facility] 1. 2.840.114 [id number] Univers 09:15:00 11:39:36 Shereen Travis CASCADE OPERATOR 350.1.13.10 ity of Visit REGIONAL 4.2.7.2.686 Jamal as MATERNAL [id number] [facility] & [address] 2022-04-14 2022-04-14 [facility] 1.2 .840.[id number] [facility] 10:30:00 10:45:00 Visit Akinsijohnathan, Tushar C CASCADE OPERATOR 350.1.13. 10 ity of REGIONAL 4.2.7.2.686 Jamal as MATERNAL [id number] [facility] CHILD [address] [place] [address] 2022-04-14 2022-04-14 Orthopedic Physical Therapist Ultrasound, West[facility] 1.2 .840.114 [id number] Univers 09:30:00 10:39:28 Visit Shereen Travis CASCADE OPERATOR 350.1.13.10 ity of REGIONAL 4.2.7.2.686 Jamal as MATERNAL [id number] Med ical & CHILD [address] [facility] 2022-04-14 2022-04-14 Outpatient R RIKY [facility] [id number] Univers 10:30:00 10:30:00 TUSHAR darrius lauren [facility] 2022-04-14 2022-04-14 Case Ene [facility] 1.2.840.114 [id number] Univers 00:00:00 00:00:00 Management Antonette Millard CASCADE OPERATOR 350.1.13.10 ity of REGIONAL 4.2.7.2.686 Jamal as MATERNAL [id number] Med ical & CHILD [address] [place] [address] 2022-04-07 2022-04-07 [facility] 1.2 .840.114 [id number] Univers 13:00:00 13:13:39 Visit Tushar Lan CASCADE OPERATOR 350.1.13. 10 ity of REGIONAL 4.2.7.2.686 Jamal as MATERNAL [id number] Med ical & CHILD [address] [place] [address] 2022-04-07 2022-04-07 Outpatient R RIKY [facility] [id number] Univers 13:00:00 13:00:00 TUSHAR katz xin [facility] 2022-04-07 2022-04-07 Telephone Riky [facility] 1.2.840.114 [id number] Univers 00:00:00 00:00:00 Tushar Lund CASCADE OPERATOR 350.1.13.10 ity of REGIONAL 4.2.7.2.686 Jamal as MATERNAL [id number] Med ical & CHILD [address] [place] [address] 2022-03-31 2022-03-31 Routine Risk, Qul-Nivkg-Tv/High [facility] 1. 2.840.114 [id number] Univers 09:45:00 10:58:49 Edwin Cage CASCADE OPERATOR 350.1.13.10 ity of Visit [facility] 4.2.7.2.686 Jamal as MATERNAL [id number] Med ical & CHILD [address] [place] [address] 2022-03-31 2022-03-31 Outpatient R SHANKAR [facility] [id number] Univers 09:45:00 10:58:49 EDWIN [facility] 2022-03-24 2022-03-24 Nurse Visit, Neftali Nurse [facility] 1.2 .840.114 [id number] Univers 10:00:00 10:00:00 Visit Tushar Lan CASCADE OPERATOR 350.1.13. 10 ity of REGIONAL 4.2.7.2.686 Jamal as MATERNAL [id number] [facility] CHILD [address] [place] [address] 2022-03-24 2022-03-24 Outpatient R RIKY [facility] [id number] Univers 10:00:00 09:55:01 TUSHAR rizo o f [facility] 2022-03-15 2022-03-15 Telephone Mallyjohnathan [facility] 1.2.840.114 [id number] Univers 00:00:00 00:00:00 Tushar Lund CASCADE OPERATOR 350.1.13.10 ity of REGIONAL 4.2.7.2.686 Jamal as MATERNAL [id number] [address] 2022-03-10 2022-03-10 Outpatient R SHANKAR [facility] [id number] Univers 11:00:00 11:45:31 EDWIN [facility] 2022-03-10 2022-03-10 Routine Risk, Sxs-Sajws-Kp/High [facility] 1. 2.840.114 [id number] Univers 11:00:00 11:45:31 Edwin Cage CASCADE OPERATOR 350.1.13.10 ity of Visit REGIONAL 4.2.7.2.686 Jamal as MATERNAL [id number] [address] 2022-03-10 2022-03-10 Outpatient R [facility] [id number] Univers 10:30:00 10:30:00 ity [facility] 2022-03-07 2022-03-07 Telephone Riky [facility] 1.2.840.114 [id number] Univers 00:00:00 00:00:00 Tushar Lund CASCADE OPERATOR 350.1.13.10 ity of REGIONAL 4.2.7.2.686 Jamal as MATERNAL [id number] [facility] CHILD [address] [place] [address] 2022-03-07 2022-03-07 [facility] 1.2.840.114 [id number] Univers 00:00:00 00:00:00 Management Edwin Blas CASCADE OPERATOR 350.1.13.10 ity of REGIONAL 4.2.7.2.686 Jamal as MATERNAL [id number] [facility] CH[facility] [address] [place] [address] 2022-02-24 2022-02-24 [facility] [id number] Univers 10:00:00 11:04:18 EDWIN [facility] 2022-02-24 2022-02-24 Routine Risk, Rkv-Kvdbc-Al/High [facility] 1. 2.840.114 [id number] Univers 10:00:00 11:04:18 Edwin Cage CASCADE OPERATOR 350.1.13.10 ity of Visit REGIONAL 4.2.7.2.686 Jamal as MATERNAL [id number] [facility] CHILD [address] [place] [address] 2022-02-10 2022-02-10 Outpatient Angelica CAGE [facility] [id number] Univers 13:15:00 13:59:26 EDWIN [facility] 2022-02-10 2022-02-10 Routine Risk, Vii-Ebbqe-Ak/High [facility] 1. 2.840.114 [id number] Univers 13:15:00 13:59:26 Edwin Cage CASCADE OPERATOR 350.1.13.10 ity of Visit REGIONAL 4.2.7.2.686 Jamal as MATERNAL [id number] [facility] & CHILD [address] [place] [address] 2022-01-27 2022-01-27 Outpatient [facility] [id number] Univers 09:00:00 10:00:53 [facility] 2022-01-27 2022-01-27 Routine Risk, Are-Ixnjh-Rt/High [facility] 1. 2.840.114 [id number] Univers 09:00:00 10:00:53 CageEdwin CASCADE OPERATOR 350.1.13.10 ity of Visit [facility] 4.2.7.2.686 Jamal as MATERNAL [id number] [facility] ical & CHILD [address] [place] [address] 2022-01-10 2022-01-10 Case Ene [facility] 1.2.840.114 [id number] Univers 00:00:00 00:00:00 Management Antonette Millard CASCADE OPERATOR 350.1.13.10 ity of REGIONAL 4.2.7.2.686 Jamal as MATERNAL [id number] [facility] & CHILD [address] [place] [address] 2022-01-06 2022-01-06 Orthopedic Physical Therapist [facility] 1.2 .840.114 [id number] Univers 15:15:00 15:45:00 Visit David Cooper CASCADE OPERATOR 350.1.13.10 ity of [facility] 4.2.7.2.686 Jamal as MATERNAL [id number] [facility] & CHILD [address] [facility] 2022-01-06 2022-01-06 Outpatient P BALBIR [facility] [id number] Univers 15:15:00 [facility] 2021-12-30 Outpatient R SARA SNYDER [facility] B [id number] Univers 10:00:00 10:00:00 SARA SNYEDR [facility] 2021-12-23 2021-12-23 Outpatient R ENE [facility] [id number] Univers 09:15:00 10:41:00 ANTONETTE [facility] 2021-12-23 2021-12-23 Initial Provider, Neftali [facility] 1 .2.840.114 [id number] Univers 09:15:00 10:41:00 Niki Ralph CASCADE OPERATOR 350.1.13.1 0 ity of Visit Antonette Solano [facility] 4.2.7.2.686 [place] MATERNAL [id number] Med ical & CHILD [address] [facility] 2021-12-23 2021-12-23 Orders Doctor MOSHE 1.2.840.114 [id number] Univers 00:00:00 00:00:00 Only Unassigned, TEDDY 350.1.13.10 ity of [place] [facility] 4.2.7.2.686 Jamal as [id number] [facility] [address] 2021-12-17 2021-12-17 Case [facility] 1.2.840.114 [id number] Univers 00:00:00 00:00:00 Management Sara DONALDSON 350.1.13.10 ity of [facility]OM[facility]'S 4.2.7.2.686 [facility] [id number] [facility] [address] 2021-12-14 2021-12-14 Outpatient R SARA SNYDER [facility] B [id number] Univers 14:55:04 23:59:00 SARA SNYDER [facility] 2021-12-14 2021-12-14 [facility] 1.2.840.114 [id number] Univers 14:55:04 23:59:00 Encounter Sara HELLER 350.1.13.10 ity of [place] 4.2.7.2.686 [facility] [id number] [facility] [address] 2021-12-14 2021-12-14 Orders Doctor MOSHE 1.2.840.114 [id number] Univers 00:00:00 00:00:00 Only Unassigned, TEDDY 350.1.13.10 ity of [place] [facility] 4.2.7.2.686 Jamal as [id number] [facility] [address] 2021-12-09 2021-12-09 Outpatient R SARA SNYDER [facility] B [id number] Univers 09:00:00 09:43:20 [facility]-12-[facility] 2021-12-09 Initial [facility] 1.2.840.114 [id number] Univers 09:00:00 09:43:20 Sara DONALDSON 350.1.13.10 i ty of Visit WOMEN'S 4.2.7.2.686 [place] [facility] [id number] [address] 2021-10-12 2021-10-12 Office Riky, [facility] 1.2.924.073 [id number] Univers 13:00:00 13:34:47 Visit Tushar C CASCADE OPERATOR 350.1.13.10 ity of [facility] 4.2.7.2.686 Jamal as MATERNAL [id number] [facility] ical & CHILD [address] [place] [address] 2021-10-12 2021-10-12 Outpatient R AKINBERNYPE, [facility] [id number] Univers 13:00:00 13:34:47 TUSHAR katz [facility] 2021-10-12 2021-10-12 Outpatient R AKINFORMERLY [facility], [facility] [id number] Univers 13:00:00 13:00:00 TUSHAR katz [facility] 2021-10-12 2021-10-12 Outpatient R AKINSI, [facility] [id number] Univers 13:00:00 13:00:00 TUSHAR rizo [facility] 2021-10-12 2021-10-12 Orders Doctor MESA 1.2.840.114 [id number] Univers 00:00:00 00:00:00 Only Unassigned, TEDDY 350.1.13.10 ity of [place] [facility] 4.2.7.2.686 Jamal as [id number] [address] 2021-09-28 2021-09-28 Outpatient R AKINSIPE, [facility] [id number] Univers 12:45:00 14:31:13 TUSHAR rizo o [facility] 2021-09-28 2021-09-28 [facility] 1.2.356.753 [id number] Univers 12:45:00 14:31:13 Visit Tushar Lund CASCADE OPERATOR 350.1.13.10 ity of [facility] 4.2.7.2.686 Jamal as MATERNAL [id number] [facility] ical & CHILD [address] [place] [address] 2021-08-05 2021-08-05 Outpatient R JAM SAUNDERS [facility] [id number] Univers 16:15:00 16:15:00 ity [facility] 2021-06-18 2021-06-18 Outpatient R THERON [facility] [id number] Univers 11:00:00 11:00:00 [place] ity [facility] 2021-06-15 2021-06-15 Orders Doctor MOSHE 1.2.840.114 [id number] Univers 00:00:00 00:00:00 Only Unassigned, TEDDY 350.1.13.10 ity of [place] [facility] 4.2.7.2.686 Jamal as [id number] [facility] [address] 2021-06-15 2021-06-15 Patient Doctor MOSHE 1.2.840.114 [id number] Univers 00:00:00 00:00:00 Secure Msg Unassigned, TEDDY 350.1.13.10 ity of [place] [facility] 4.2.7.2.686 Jamal as [id number] [facility] [address] 2021-03-09 2021-03-09 Outpatient R RIKY [facility] [id number] Univers 14:00:00 14:00:00 TUSHAR rizo o f [facility] 2021-03-02 2021-03-02 Telephone [facility] 1.2.840.114 [id number] Univers 00:00:00 00:00:00 Tushar Lund CASCADE OPERATOR 350.1.13.10 ity of [facility] 4.2.7.2.686 Jamal as MATERNAL [id number] Med ical & CHILD [address] [place] [address] 2021-02-12 2021-02-12 [facility] 1.2.046.002 [id number] Univers 00:00:00 00:00:00 Ernesto Rosario CASCADE OPERATOR 350.1.13.10 it y of [facility] 4.2.7.2.686 Jamal as MATERNAL [id number] Med ical & CHILD [address] [place] [address] 2021-02-11 2021-02-11 Refjarocho [facility]FOUR [facility] 1.2.055.442 [id number] Univers 00:00:00 00:00:00 Tushar C CASCADE OPERATOR 350.1.13.10 ity of [facility] 4.2.7.2.686 Jamal as MATERNAL [id number] [facility] & CHILD [address] [place] [address] 2021-01-27 2021-01-27 [facility] 1.2.945.435 [id number] Univers 00:00:00 00:00:00 Ernesto N CASCADE OPERATOR 350.1.13.10 it y of [facility] 4.2.7.2.686 Jamal as MATERNAL [id number] [facility] & CHILD [address] [place] [address] 2021-01-18 2021-01-18 [facility] [id number] Univers 16:00:00 16:18:34 ERNESTO rizo [facility] 2021-01-18 2021-01-18 Office [facility] 1.2.731.998 [id number] Univers 15:59:18 16:18:34 Visit Ernesto Rosario CASCADE OPERATOR 350.1.13.10 it y of [facility] 4..7.2.686 Jamal as MATERNAL [id number] [address] 2021-01-18 2021-01-18 [facility] [id number] Univers 16:00:00 16:00:00 ERNESTO rizo [facility] 2021-01-15 2021-01-15 Outpatient [facility] [id number] Univers 13:15:00 13:15:00 ERNESTO rizo [facility] 2020-12-11 2020-12-11 Telephone [facility] 1.2.840.114 [id number] Univers 00:00:00 00:00:00 Tushar C CASCADE OPERATOR 350.1.13.10 ity of [facility] 4..7.2.686 Jamal as MATERNAL [id number] [address] 2020-10-20 2020-10-20 Office [facility] 1.2.840.114 [id number] Univers 13:30:06 14:12:47 Visit Roshunda R CASCADE OPERATOR 350.1.13.10 ity of REGIONAL 4.2.7.2.686 Jamal as MATERNAL [id number] [facility] & CHILD [address] [place] [address] 2020-10-20 2020-10-20 Outpatient R RAMO [facility] [id number] Univers 13:30:00 13:30:00 NIKI riosy o f [facility] 2020-10-14 2020-10-14 Outpatient R RIKY [facility] [id number] Univers 15:00:00 15:00:00 TUSHAR ity o [facility] 2020-10-12 2020-10-12 [facility] 1.2.760.288 [id number] Univers 14:17:44 15:03:31 Visit Tushar Lund CASCADE OPERATOR 350.1.13.10 ity of [facility] 4.2.7.2.686 Jamal as MATERNAL [id number] [address] 2020-10-12 2020-10-12 Outpatient R RIKY [facility] [id number] Univers 14:30:00 14:30:00 TUSHAR riosy o [facility] 2020-09-28 2020-09-28 Outpatient R RIKY [facility] [id number] Univers 08:30:00 08:30:00 TUSHAR riosy o f [facility] 2020-09-28 2020-09-28 Telephone [facility] 1.2.840.114 [id number] Univers 00:00:00 00:00:00 Ernesto Rosario CASCADE OPERATOR 350.1.13.10 it y of REGIONAL 4.2.7.2.686 Jamal as MATERNAL [id number] [facility] & CHILD [address] [place] [address] 2020-09-25 2020-09-25 Telephone [facility] 1.2.840.114 [id number] Univers 00:00:00 00:00:00 Tushar Lund CASCADE OPERATOR 350.1.13.10 ity of REGIONAL 4.2.7.2.686 Jamal as MATERNAL [id number] [facility] & CHILD [address] [place] [address] 2020-09-242020-09-24 Office [facility] 1.2.026.012 [id number] Univers 14:14:05 14:29:05 Visit Tushar Lund CASCADE OPERATOR 350.1.13.10 ity of REGIONAL 4.2.7.2.686 Jamal as MATERNAL [id number] [facility] & [address] 2020-09-24 2020-09-24 Outpatient R RIKY [facility] [id number] Univers 14:15:00 14:15:00 TUSHAR lauren [facility] 2020-09-08 2020-09-08 Outpatient Angelica PEACOCK [facility] [id number] Univers 16:00:00 16:00:00 ERNESTO [facility] 2020-08-18 2020-08-18 Routine [facility] 1.2.410.626 [id number] Univers 13:04:51 13:45:53 Tushar Lund CASCADE OPERATOR 350.1.13.10 ity of Visit REGIONAL 4.2.7.2.686 Jamal as MATERNAL [id number] [address] 2020-08-18 2020-08-18 Outpatient R RIKY [facility] [id number] Univers 13:15:00 13:15:00 TUSHAR katz [facility] 2020-08-06 2020-08-06 Outpatient Angelica PEACOCK [facility] [id number] Univers 11:00:00 11:00:00 ERNESTO [facility] 2020-08-06 2020-08-06 Nurse Visit, Ang-Rmchp Nurse [facility] 1.2 .840.114 [id number] Univers 08:21:04 09:08:19 Visit Tushar Lan CASCADE OPERATOR 350.1.13. 10 ity of REGIONAL 4.2.7.2.686 Jamal as MATERNAL [id number] [facility] & [address] 2020-08-06 2020-08-06 Outpatient R RIKY [facility] [id number] Univers 09:00:00 09:00:00 TUSHAR katz [facility] 2020-08-04 2020-08-04 Telephone [facility] 1.2.840.114 [id number] Univers 00:00:00 00:00:00 Ernesto Rosario CASCADE OPERATOR 350.1.13.10 it y of [facility] 4.2.7.2.686 Jamal as MATERNAL [id number] Med ical & CHILD [address] [place] [address] 2020-08-01 2020-08-01 1.2.840.1 1.2.840.114 [id number] Univers 00:00:00 00:00:00 Encounter [id number] 350.1.13.10 ity of 3.104.2.7 [place]2.[place] .[id number] 570 [facility] 2020-07-26 2020-07-28 [facility] 1.2.840.11 [id number] Univers 14:30:00 17:45:00 Encounter Austin Arzola 350.1.13.10 ity of [place] 4.2.7.2.686 [facility] [place] [id number] [address] 2020-07-27 2020-07-27 Anesthesia [facility] 1.2.840.114 [id number] Univers 10:49:00 16:19:00 Event Dylan Heller 350.1.13.10 ity of [place] 4.2.7.2.686 [facility] [id number] [address] 2020-07-26 2020-07-26 Anesthesia [facility] 1.2.840.114 [id number] Univers 19:50:09 19:50:09 Event Angelica Heller 350.1.13.10 i ty of [place] 4.2.7.2.686 [facility] [place] [id number] [address] 2020-07-21 2020-07-21 Routine [facility] 1.2.954.837 [id number] Univers 12:46:13 13:17:55 Ernesto Rosario CASCADE OPERATOR 350.1.13.10 i ty of Visit [facility] 4.2.7.2.686 Jamal as MATERNAL [id number] [facility] ical & CHILD [address] [place] [address] 2020-07-21 2020-07-21 Outpatient Angelica PEACOCK [facility] [id number] Univers 12:45:00 12:45:00 ERNESTOEMILY rizo [facility] 2020-07-12 2020-07-12 Hospital [facility] 1.2.840.114 [id number] Univers 02:00:00 03:20:00 Encounter Hetal Heller 350.1.13.[address] [facility] 4.2.7.2.686 [place] [facility] [id number] [address] 2020-07-07 2020-07-07 Routine [facility] 1.2.583.360 [id number] Univers 10:39:36 11:15:55 Ernesto N CASCADE OPERATOR 350.1.13.10 i ty of Visit [facility] 4.2.7.2.686 Jamal as MATERNAL [id number] [facility] & CHILD [address] [place] [address] 2020-07-07 2020-07-07 Outpatient R MADONNA [facility] [id number] Univers 10:45:00 10:45:00 ERNESTOEMILY rizo [facility] 2020-06-26 2020-06-26 Telephone [facility] 1.2.840.114 [id number] Univers 00:00:00 00:00:00 Tushar Lund CASCADE OPERATOR 350.1.13.10 ity of [facility] 4.2.7.2.686 Jamal as MATERNAL [id number] [facility] & CHILD [address] [place] [address] 2020-06-26 2020-06-26 Patient Madonna MSSOLE 1.2.039.127 [id number] Univers 00:00:00 00:00:00 Secure Msg Ernesto Rosario CASCADE OPERATOR 350.1.13.10 ity of [facility] 4.2.7.2.686 Jamal as MATERNAL [id number] [facility] & CHILD [address] [place] [address] 2020-06-23 2020-06-23 Routine [facility] 1.2.852.566 [id number] Univers 14:10:30 14:38:56 Ernesto N CASCADE OPERATOR 350.1.13.10 i ty of Visit REGIONAL 4.2.7.2.686 Jamal as MATERNAL [id number] [facility] & [address] 2020-06-23 2020-06-23 Outpatient R MADONNA [facility] [id number] Univers 14:15:00 14:15:00 ERNESTOEMILY rizo [facility] 2020-06-11 2020-06-11 Orders Doctor MOSHE 1.2.840.114 [id number] Univers 00:00:00 00:00:00 Only Unassigned, TEDDY 350.1.13.10 ity of [place] [facility] 4.2.7.2.686 Jamal as [id number] [address] 2020-06-09 2020-06-09 Routine Niki Ralph [facility] 1.2.840 .114 [id number] Univers 14:16:51 14:55:17 Ernesto Peacock CASCADE OPERATOR 350.1.13.10 ity of Visit REGIONAL 4.2.7.2.686 Jamal as MATERNAL [id number] [facility] & CHILD [address] [place] [address] 2020-06-09 2020-06-09 Outpatient R MADONNA [facility] [id number] Univers 14:15:00 14:15:00 ERNESTOEMILY riosspenser [facility] 2020-06-02 2020-06-02 Orders Doctor MESA 1.2.840.114 [id number] Univers 00:00:00 00:00:00 Only Unassigned, TEDDY 350.1.13.10 ity of [place] [facility] 4.2.7.2.686 Jamal as [id number] [address] 2020-06-01 2020-06-01 Arcadio Lan [facility] 1.2.689.358 [id number] Univers 00:00:00 00:00:00 Tushar Lund CASCADE OPERATOR 350.1.13.10 ity of REGIONAL 4.2.7.2.686 Jamal as MATERNAL [id number] [facility] & CHILD [address] [place] [address] 2020-05-21 2020-05-21 Orthopedic Physical Therapist Lab, [facility] 1.2.840. 114 [id number] Univers 12:58:26 13:13:26 Visit Tushar Lan CASCADE OPERATOR 350.1.13. 10 ity of REGIONAL 4.2.7.2.686 Jamal as MATERNAL [id number] [facility] & [address] 2020-05-21 2020-05-21 Outpatient R RIKY [facility] [id number] Univers 13:00:00 13:00:00 TUSHAR rizo o f [facility] 2020-05-19 2020-05-19 Routine [facility] 1.2.453.431 [id number] Univers 12:45:26 13:11:32 Ernesto Rosario CASCADE OPERATOR 350.1.13.10 i ty of Visit [facility] 4.2.7.2.686 Jamal as MATERNAL [id number] [address] 2020-05-19 2020-05-19 [facility] [id number] Univers 12:45:00 12:45:00 [facility] 2020-05-19 2020-05-19 Patient [facility] 1.2.840.114 [id number] Univers 00:00:00 00:00:00 Outreach Jeffery MACDONALD 350.1.13.[address] [facility] 4.2.7.2.686 [place] ROSEANNPAMELA [id number] [address] 2020-04-23 2020-04-23 Routine [facility] 1.2.745.411 [id number] Univers 15:54:18 16:11:16 Ernesto N CASCADE OPERATOR 350.1.13.10 i ty of Visit [facility] 4.2.7.2.686 Jamal as MATERNAL [id number] [address] 2020-04-23 2020-04-23 Outpatient R MADONNA [facility] [id number] Univers 16:00:00 16:00:00 ERNESTO [facility] 2020-04-14 2020-04-14 Outpatient [facility] [id number] Univers 12:45:00 12:45:00 ERNESTO rizo [facility] 2020-04-09 2020-04-09 Orthopedic Physical Therapist Ultrasound, Leonardo [facility] 1.2 .840.114 [id number] Univers 13:55:54 14:54:41 Visit Radha Charlton CASCADE OPERATOR 350.1.13.10 ity of [facility] 4.2.7.2.686 Jamal as MATERNAL [id number] [facility] ical & CHILD [address] [facility] 2020-04-09 2020-04-09 Outpatient P [facility] [id number] Univers 14:00:00 14:00:00 ity [facility] 2020-04-07 2020-04-07 Telephone [facility] 1.2.840.114 [id number] Univers 00:00:00 00:00:00 Ernesto Rosario CASCADE OPERATOR 350.1.13.10 it y of [facility] 4.2.7.2.686 Jamal as MATERNAL [id number] [facility] & CHILD [address] [place] [address] 2020-03-26 2020-03-26 Orders Doctor MOSHE 1.2.840.114 [id number] Univers 00:00:00 00:00:00 Only Unassigned, TEDDY 350.1.13.10 ity of [place] [facility] 42.7.2.686 Jamal as [id number] [address] 2020-03-17 2020-03-17 Routine Madonna MSSOLE 1.2.809.655 [id number] Univers 12:49:30 13:34:04 Ernesto Rsoario CASCADE OPERATOR 350.1.13.10 i ty of Visit [facility] 4.2.7.2.686 Jamal as MATERNAL [id number] [facility] & CHILD [address] [place] [address] 2020-03-17 2020-03-17 Outpatient R MADONNA [facility] [id number] Univers 13:00:00 13:00:00 ERNESTO riosspenser [facility] 2020-02-25 2020-02-25 Telephone Madonna [facility] 1.2.840.114 [id number] Univers 00:00:00 00:00:00 Ernesto Rosario CASCADE OPERATOR 350.1.13.10 it y of [place] [address].7.2.686 Jamal as MATERNAL [id number] Med ical & CHILD [address] [place] [address] 2020-02-18 2020-02-18 Outpatient R MADONNA [facility] [id number] Univers 14:45:00 14:45:00 ERNESTOEMILY rizo [facility] 2020-02-18 2020-02-18 Routine [facility] 1.2.255.355 [id number] Univers 14:09:04 14:39:35 Ernesto N CASCADE OPERATOR 350.1.13.10 i ty of Visit [address]686 Jamal as MATERNAL [id number] Med ical & CHILD [address] [place] [address] 2020-02-03 2020-02-03 Telephone [facility] 1.2.840.114 [id number] Univers 00:00:00 00:00:00 Tushar Lund CASCADE OPERATOR 350.1.13.10 ity of [place] [address]..2.686 Jamal as MATERNAL [id number] Med ical & CHILD [address] [place] [address] 2020-02-03 2020-02-03 Refill Doctor [facility] 1.2.840.114 [id number] Univers 00:00:00 00:00:00 Unassigned, CASCADE OPERATOR 350.1.13.10 ity of [place] [address].7.2.686 Jamal as MATERNAL [id number] Med ical & CHILD [address] [place] [address] 2020-01-21 2020-01-21 Routine [facility] 1.2.598.737 [id number] Univers 15:20:02 16:02:58 Ernesto N CASCADE OPERATOR 350.1.13.10 i ty of Visit [place] [address].2.686 Jamal as MATERNAL [id number] Med ical & CHILD [address] [place] [address] 2020-01-21 2020-01-21 Outpatient R MADONNA [facility] [id number] Univers 15:30:00 15:30:00 ERNESTOEMILY rizo [facility] 2020-01-18 2020-01-18 Refill Doctor [facility] 1.2.840.114 [id number] Univers 00:00:00 00:00:00 Unassigned, CASCADE OPERATOR 350.1.13.10 ity of [place] REGIONAL 4.2.7.2.686 Jamal as MATERNAL [id number] Med ical & CHILD 107 [facility] 2020-01-09 2020-01-09 Orthopedic Physical Therapist [facility] 1.2 .840.114 [id number] Univers 14:52:31 15:17:04 Visit Shereen Travis CASCADE OPERATOR 350.1.13.10 ity of REGIONAL 4.2.7.2.686 Jamal as MATERNAL [id number] Med ical & CHILD 369 [facility] 2020-01-09 2020-01-09 Outpatient P [facility] [id number] Univers 14:45:00 14:45:00 ity of [facility] 2020-01-09 2020-01-09 Abstract [facility] 1.2.840.114 [id number] Univers 00:00:00 00:00:00 Ernesto Rosario CASCADE OPERATOR 350.1.13.10 it y of REGIONAL 4.2.7.2.686 Jamal as MATERNAL [id number] Med ical & CHILD [address] [place] [address] 2019-12-27 2019-12-27 Telephone Riky [facility] 1.2.840.114 [id number] Univers 00:00:00 00:00:00 Tushar Lund CASCADE OPERATOR 350.1.13.10 ity of REGIONAL 4.2.7.2.686 Jamal as MATERNAL [id number] Med ical & CHILD [address] [place] [address] 2019-12-26 2019-12-26 Initial [facility] 1.2.139.836 [id number] Univers 13:39:00 15:06:17 Ernesto Rosario CASCADE OPERATOR 350.1.13.10 i ty of Visit REGIONAL 4.2.7.2.686 Jamal as MATERNAL [id number] Med ical & CHILD [address] [place] [address] 2019-12-26 2019-12-26 [facility] [id number] Univers 13:45:00 13:45:00 ERNESTO rzio [facility] 2019-12-26 2019-12-26 Orders Doctor MESA 1.2.840.114 [id number] Univers 00:00:00 00:00:00 Only Unassigned, TEDDY 350.1.13.10 ity of [place] [facility] 4.2.7.2.686 Jamal as [id number] [address] 2019-12-09 2019-12-09 Outpatient R RIKY [facility] [id number] [facility] 13:15:00 13:15:00 TUSHAR katz f [facility] 2019-10-28 2019-10-28 Telephone [facility] [id number] 00:00:00 00:00:00 Tushar C CASCADE OPERATOR 350.1.13.10 REGIONAL 4.2.7.2.686 MATERNAL [phone] & CHILD [address] [place] [address] 2019-10-28 2019-10-28 [facility] [id number] [facility] 00:00:00 00:00:00 Tushar C CASCADE OPERATOR 350.1.13.10 ity of [facility] 4.2.7.2.686 Jamal as MATERNAL [phone] [facility] ical & CHILD [address] [place] [address] 2019-10-09 2019-10-09 [facility] [id number] [facility] 08:16:20 08:48:41 Visit Tushar C CASCADE OPERATOR 350.1.13.10 ity of [facility] 4.2.7.2.686 Jamal as MATERNAL [phone] [facility] & CHILD [address] [place] [address] 2019-10-09 2019-10-09 Office [facility] [id number] 08:16:20 08:48:41 Visit Tushar C CASCADE OPERATOR 350.1.13.10 [facility] 4.2.7.2.686 MATERNAL [phone] & CHILD [address] [place] [address] 2019-10-09 2019-10-09 Outpatient R RIKY [facility] [id number] [facility] 08:15:00 08:15:00 TUSHAR rizo o f [facility] 2019-10-07 2019-10-07 Outpatient R RIKY [facility] [id number] Univers 10:30:00 10:30:00 TUSHAR rizo o f [facility] 2019-09-27 2019-09-27 Telephone [facility] [id number] [id number] Univers 00:00:00 00:00:00 Tushar C CASCADE OPERATOR 350.1.13.10 ity of [facility] 4.2.7.2.686 Jamal as MATERNAL [id number] Med ical & CHILD 107 [facility] 2019-09-25 2019-09-25 Refill [facility] [id number] Univers 00:00:00 00:00:00 Tushar C CASCADE OPERATOR 350.1.13.10 ity of [facility] 4.2.7.2.686 Jamal as MATERNAL [id number] Med ical & CHILD 107 [facility] 2019-08-19 2019-08-19 Telephone [facility] 1.2.840.114 [id number] Univers 00:00:00 00:00:00 Tushar C CASCADE OPERATOR 350.1.13.10 ity of REGIONAL 4.2.7.2.686 Jamal as MATERNAL [phone] Med ical & CHILD 107 [facility] 2019-08-16 2019-08-16 Case Joselyn [facility] 1.2.301.855 [id number] Univers 00:00:00 00:00:00 Management Selam CASCADE OPERATOR 350.1.13.10 ity of REGIONAL 4.2.7.2.686 Jamal as MATERNAL [phone] Med ical & CHILD 111 [facility] 2019-08-15 2019-08-15 Office Provider, Ang-Rmchp [facility] 1 .2.840.114 [id number] Univers 10:43:37 11:14:30 Visit Selam Alves CASCADE OPERATOR 350.1.13.10 ity of REGIONAL 4.2.7.2.686 Jamal as MATERNAL [phone] Med ical & CHILD 107 [facility] 2019-08-15 2019-08-15 Outpatient R JOSELYN MSSOLE [facility] [id number] Univers 10:45:00 10:45:00 SELAM katz xin [facility] 2019-07-23 2019-07-23 Telephone [facility] 1.2.840.114 [id number] Univers 00:00:00 00:00:00 Tushar Lund CASCADE OPERATOR 350.1.13.10 ity of [facility] 4.2.7.2.686 Jamal as MATERNAL [id number] [facility] & CHILD [address] [place] [address] 2019-07-19 2019-07-19 Orders Doctor MOSHE 1.2.840.114 [id number] Univers 00:00:00 00:00:00 Only Unassigned, TEDDY 350.1.13.10 ity of [place] [facility] 4.2.7.2.686 Jamal as [phone] [address] 2019-07-08 2019-07-08 [facility] 1.2.840.114 [id number] Univers 07:39:54 09:35:12 ne Visit Tushar Lund CASCADE OPERATOR 350.1.13.10 ity of [facility] 4.2.7.2.686 Jamal as MATERNAL [phone] [facility] & CHILD [address] [place] [address] 2019-07-08 2019-07-08 Outpatient R RIKY [facility] [id number] Univers 09:30:00 09:30:00 TUSHAR lauren [facility] 2019-07-05 2019-07-05 Telephone [facility] 1.2.840.114 [id number] Univers 00:00:00 00:00:00 Tushar Lund CASCADE OPERATOR 350.1.13.10 ity of REGIONAL 4.2.7.2.686 Jamal as MATERNAL [phone] [facility] & CHILD [address] [place] [address] 2019-04-29 2019-04-29 Telephone [facility] 1.2.840.114 [id number] Univers 00:00:00 00:00:00 Tushar C CASCADE OPERATOR 350.1.13.10 ity of [facility] 4.2.7.2.686 Jamal as MATERNAL [phone] [facility] & CHILD [address] [place] [address] 2019-04-01 2019-04-01 Telephone [facility] 1.2.840.114 [id number] Univers 00:00:00 00:00:00 Tushar Lund CASCADE OPERATOR 350.1.13.10 ity of [facility] 4.2.7.2.686 Jamal as MATERNAL [phone] [facility] ical & CHILD [address] [place] [address] 2019 2019 Office [facility] 1.2.609.535 [id number] Univers 10:39:31 11:16:49 Visit Tushar Lund CASCADE OPERATOR 350.1.13.10 ity of [facility] 4.2.7.2.686 Jamal as MATERNAL [phone] [facility] ical & CHILD [address] [place] [address] 2019 2019 Orders Doctor MOSHE 1.2.840.114 [id number] Univers 00:00:00 00:00:00 Only Unassigned, TEDDY 350.1.13.10 ity of [place] [facility] 4.2.7.2.686 Jamal as [phone] [address] 2018-12-20 2018-12-20 Office [place], 1.2.840.3 [id number] [facility] 09:37:41 10:39:11 Visit Tushar Lund 93209.1.1 i ty of 3.104.2.7 [place] .[id number] Medica l .8 [facility] 2018-12-20 2018-12-20 Telephone [place], 1.2.840.1 [id number] Univers 00:00:00 00:00:00 Tushar Lund 10361.1.1 i ty of 3.104.2.7 [place] [id number] Medica l .8 [employer] [facility] 2018-12-20 2018-12-20 Orders Doctor 1.2.840.6 [id number] Univers 00:00:00 00:00:00 Only Unassigned, 26197.1.1 ity of [place] 3.104.2.7 [facility]3.989396 Medica l .8 [employer] Results Test Description Test Time Test Comments [...] g/dL 31.6-35.1 L RDW-SD (test code = 75136-3) 38.7 fL 39.0-49.9 L RDW-CV (test code = 788-0) 15.1 % 12.0-15.5 PLT (test code = 777-3) 338 See_Comment [Au tomated message] The system which ge nerated this result transmit brendan reference range: 166 - 35 8 10*3/?L. The reference range was not used to interpret th is result as normal/abnormal . MPV (test code = 99111-9) 10.1 fL 9.5-12.9 NRBC/100 WBC (test code = 0.0 See_Comment [ Automated message] The 6851797470) system which ge nerated this result transmit brendan reference range: 0.0 - 10 .0 /100 WBCs. The reference r yancy was not used to interpr et this result as normal/abnor mal. NRBC x10^3 (test code = See_Comment [Au tomated message] The 1174043467) system which ge nerated this result transmit brendan reference range: 10*3/?L. The reference range was not u sed to interpret this result as normal/abnormal . GRAN MAT (NEUT) % (test code 72.3 % = 770-8) IMM GRAN % (test code = 0.90 % 1774453043) LYMPH % (test code = 736-9) 18.3 % MONO % (test code = 5905-5) 5.8 % EOS % (test code = 713-8) 2.5 % BASO % (test code = 706-2) 0.2 % GRAN MAT x10^3(ANC) (test 7.24 10*3/uL 1.88-7.09 H code = 3911852129) IMM GRAN x10^3 (test code = 0.09 10*3/uL 0.00-0.06 H 7834013912) LYMPH x10^3 (test code = 1.83 10*3/uL 1.32-3.29 731-0) MONO x10^3 (test code = 0.58 10*3/uL 0.33-0.92 742-7) EOS x10^3 (test code = 0.25 10*3/uL 0.03-0.39 711-2) BASO x10^3 (test code = 0.01-0.07 704-7) Lab Interpretation (test Abnormal code = 56169-3) [facility]. METABOLIC PANEL (33068)2022-07-25 03:39:13 Test Item Value Reference Range Interpretation Comments NA (test code = 138 mmol/L 135-145 7369235962) K (test code = 3.1 mmol/L 3.5-5.0 L 1243854553) CL (test code = 109 mmol/L 98-108 H 9502209385) CO2 TOTAL (test code = 21 mmol/L 23-31 L 7432208692) AGAP (test code = 8 2-16 3852830175) BUN (test code = 12 mg/dL 7-23 7960863965) GLUCOSE (test code = 100 mg/dL 70-110 0204211221) CREATININE (test code = 0.44 mg/dL 0.50-1.04 L 6916879794) TOTAL BILI (test code = 1.1 mg/dL 0.1-1.2 0513700132) CALCIUM (test code = 8.1 mg/dL 8.6-10.6 L 4656214937) T PROTEIN (test code = 6.1 g/dL 6.3-8.2 L 7984557240) ALBUMIN (test code = 2.9 g/dL 3.5-5.0 L 8334328866) ALK PHOS (test code = 101 U/L 34-122 1985040595) ALTv (test code = 11 U/L 5-35 1742-6) AST(SGOT) (test code = 19 U/L 13-40 9031179801) eGFR (test code = 182.3 mL/min/1.73m2 7532206052) ARGENIS (test code = ARGENIS) Association of [...] tests). Lab Interpretation Abnormal (test code = 49496-6) [facility] WITH [id number] 03:29:32 Test Item Value Reference Range Interpretation [...] (test code = 38.3 fL 39.0-49.9 L 95913-8) RDW-CV (test code = 15.1 % 12.0-15.5 788-0) PLT (test code = 279 See_Comment [Automated 777-3) message] The sy stem which generated this result transmitted reference range : 166 - 358 10*3/ ?L. The reference r yancy was not used to interpret this result as normal/abnormal . MPV (test code = 10.3 fL 9.5-12.9 52827-5) NRBC/100 WBC (test 0.0 See_Comment [Automat ed code = 5518351828) message] The system which generated this result transmitted reference range : 0.0 - 10.0 /100 WBCs. The refer ence range was not u sed to interpret th is result as normal/abnormal . NRBC x10^3 (test code See_Comment [Auto mated = 0482698163) message] The s ystem which generated this result transmitted reference range : 10*3/?L. The reference range was not used to interpret this result as normal/abnormal . GRAN MAT (NEUT) % 80.7 % (test code = 770-8) IMM GRAN % (test code 0.70 % = 3082224486) LYMPH % (test code = 11.3 % 736-9) MONO % (test code = 4.9 % 5905-5) EOS % (test code = 2.2 % 713-8) BASO % (test code = 0.2 % 706-2) GRAN MAT x10^3(ANC) 7.96 10*3/uL 1.88-7.09 H (test code = 1752096848) IMM GRAN x10^3 (test 0.07 10*3/uL 0.00-0.06 H code = 0817053477) LYMPH x10^3 (test code 1.12 10*3/uL 1.32-3.29 L = 731-0) MONO x10^3 (test code 0.48 10*3/uL 0.33-0.92 = 742-7) EOS x10^3 (test code = 0.22 10*3/uL 0.03-0.39 711-2) BASO x10^3 (test code 0.01-0.07 = 704-7) Lab Interpretation Abnormal (test code = 20148-7) [facility] IMMUNE [id number] 00:24:07 Test Item Value Reference Range Interpretation Comments RHIG CANDIDATE? No- see comment Patient i s not a (test code = candidate for R hIg- 5188) Patient is Rh Positive.Perfor med at [facility] Laboratory Services - [facility] Blood [address] [place] [id number] Free: [phone] A No. [id number] [facility] with [id number] 11:22:51 Test Item Value Reference Range Interpretation Comments WBC (test code = 21.75 See_Comment H [Automated 1964-2) message] The system which generated this result transmit brendan reference range : 4.30 - 11.10 10*3/?L. The reference range was not used to interpret this result as normal/abnormal . RBC (test code = 3.93 See_Comment [Automated 518-2) message] The system which generated this result [...] (test code = 37.8 fL 39.0-49.9 L 27032-5) RDW-CV (test code = 14.6 % 12.0-15.5 788-0) PLT (test code = 216 See_Comment [Automated 777-3) message] The system which generated this result transmit brendan reference range : 166 - 358 10*3/ ?L. The reference range was not u sed to interpret th is result as normal/abnormal . MPV (test code = 10.8 fL 9.5-12.9 65600-2) NRBC/100 WBC (test 0.0 See_Comment [Automat ed code = 1893338903) message] The system which generated this result transmit brendan reference range : 0.0 - 10.0 /100 WBCs. The reference range was not used to interpret this result as normal/abnormal . NRBC x10^3 (test code See_Comment [Auto mated = 5391483249) message] The system which generated this result transmit brendan reference range : 10*3/?L. The reference range was not used to interpret this result as normal/abnormal . SEG % (test code = 83 % 33-76 H 09811-2) BAND % (test code = 9 % 0-1 H 05317-7) LYMPH % (test code = 8 % 14-54 L 81799-4) ANC (test code = 20.01 10*3/uL 1.88-7.09 H 753-4) Lab Interpretation Abnormal (test code = 68809-1) [facility] with [id number] 11:22:51 Test Item Value Reference Range Interpretation [...] (test code = 37.8 fL 39.0-49.9 L 07223-7) RDW-CV (test code = 14.6 % 12.0-15.5 788-0) PLT (test code = 216 See_Comment [Automated 777-3) message] The system which generated this result transmit brendan reference range : 166 - 358 10*3/ ?L. The reference range was not u sed to interpret th is result as normal/abnormal . MPV (test code = 10.8 fL 9.5-12.9 31653-5) NRBC/100 WBC (test 0.0 See_Comment [Automat ed code = 4924337276) message] The system which generated this result transmit brendan reference range : 0.0 - 10.0 /100 WBCs. The reference range was not used to interpret this result as normal/abnormal . NRBC x10^3 (test code See_Comment [Auto mated = 2209576808) message] The system which generated this result transmit brendan reference range : 10*3/?L. The reference range was not used to interpret this result as normal/abnormal . SEG % (test code = 83 % 33-76 H 34805-1) BAND % (test code = 9 % 0-1 H 02417-8) LYMPH % (test code = 8 % 14-54 L 63081-1) ANC (test code = 20.01 10*3/uL 1.88-7.09 H 753-4) Lab Interpretation Abnormal (test code = 54984-0) [facility] URINALYSIS W SPECIFIC [id number] 19:23:00 Test Item Value Reference Range Interpretation [...] . [facility] URINALYSIS W SPECIFIC [id number] 19:48:00 Test Item Value Reference Range Interpretation [...] code = 3267) . [facility]CIFIC [id number] 18:04:00 Test Item Value Reference Range Interpretation [...] U APPEAR (test code = 3267) . [facility] with [id number] 04:55:42 Test Item Value Reference Range Interpretation Comments WBC (test code = 12.52 See_Comment H [Automated 2890-2) message] The sy stem which generated this result transmitted reference range : 4.30 - 11.10 10*3/?L. The reference range was not used to interpret this result as normal/abnormal . RBC (test code = 4.28 See_Comment [Automated 779-8) message] The sy stem which generated this [...] RDW-SD (test code = 39.8 fL 39.0-49.9 36953-3) RDW-CV (test code = 13.8 % 12.0-15.5 788-0) PLT (test code = 287 See_Comment [Automated 777-3) message] The sy stem which generated this result transmitted reference range : 166 - 358 10*3/ ?L. The reference r yancy was not used to interpret this result as normal/abnormal . MPV (test code = 11.0 fL 9.5-12.9 66541-5) NRBC/100 WBC (test 0.0 See_Comment [Automat ed code = 0185460180) message] The system which generated this result transmitted reference range : 0.0 - 10.0 /100 WBCs. The refer ence range was not u sed to interpret th is result as normal/abnormal . NRBC x10^3 (test code See_Comment [Auto mated = 8783085909) message] The s ystem which generated this result transmitted reference range : 10*3/?L. The reference range was not used to interpret this result as normal/abnormal . GRAN MAT (NEUT) % 68.4 % (test code = 770-8) IMM GRAN % (test code 1.10 % = 3001271845) LYMPH % (test code = 19.6 % 736-9) MONO % (test code = 6.5 % 5905-5) EOS % (test code = 3.8 % 713-8) BASO % (test code = 0.6 % 706-2) GRAN MAT x10^3(ANC) 8.56 10*3/uL 1.88-7.09 H (test code = 3204994112) IMM GRAN x10^3 (test 0.14 10*3/uL 0.00-0.06 H code = 6978166174) LYMPH x10^3 (test code 2.46 10*3/uL 1.32-3.29 = 731-0) MONO x10^3 (test code 0.82 10*3/uL 0.33-0.92 = 742-7) EOS x10^3 (test code = 0.47 10*3/uL 0.03-0.39 H 711-2) BASO x10^3 (test code 0.07 10*3/uL 0.01-0.07 = 704-7) Lab Interpretation Abnormal (test code = 23556-7) [facility] Hour Post [id number] 04:31:20 Test Item Value Reference Range Interpretation Comments GLUC 1 HR (test code = 1527058705) 72 mg/dL 120-170 L Lab Interpretation (test code = Abnormal 14898-1) [facility] URINALYS[facility] W SPECIFIC [id number] 20:18:00 Test Item Value Reference Range Interpretation [...] . [facility] URINALYSIS W SPECIFIC [id number] 20:18:00 Test Item Value Reference Range Interpretation [...] . [facility] URINALYSIS W SPECIFIC [id number] 17:24:00 Test Item Value Reference Range Interpretation [...] . [facility] URINALYSIS W SPECIFIC [id number] 16:03:00 Test Item Value Reference Range Interpretation [...] . [facility] URINALYSIS W SPECIFIC [id number] 17:19:00 Test Item Value Reference Range Interpretation [...] . [facility] URINALYSIS W SPECIFIC [id number] 17:19:00 Test Item Value Reference Range Interpretation [...] . [facility] URINALYSIS W SPECIFIC [id number] 16:39:00 Test Item Value Reference Range Interpretation [...] 3267) [facility] URINALYSIS W SPECIFIC [id number] 19:37:00 Test Item Value Reference Range Interpretation [...] . [facility] URINALYSIS W SPECIFIC [id number] 15:33:00 Test Item Value Reference Range Interpretation [...] code = 3267) . [facility] [id number] 14:34:00 Test Item Value Reference Range Interpretation Comments POCT PREG (test code = 1605) Positive On board controls acceptable with C Yes Line (test code = 3574) POCT PREG LOT # (test code = 3575) POCT PREG TEST DATE (test code = 357) [facility] URINALYSIS W/O SPECIFIC [id number] 14:34:00 Test Item Value Reference Range Interpretation [...] negative Negative - Negative [facility] [id number] 14:34:00 Test Item Value Reference Range Interpretation Comments POCT PREG (test code = 1605) Positive On board controls acceptable with C Yes Line (test code = 3574) POCT PREG LOT # (test code = 3575) POCT PREG TEST DATE (test code = 357) [facility] URINALYSIS W/O SPECIFIC [id number] 14:34:00 Test Item Value Reference Range Interpretation [...] negative Negative - Negative [facility] [id number] 14:31:00 Test Item Value Reference Range Interpretation Comments POCT PREG (test code = 1605) Positive On board controls acceptable with C Yes Line (test code = 3574) POCT PREG LOT # (test code = 3575) POCT PREG TEST DATE (test code = 3576) [facility] [id number] 18:26:00 Test Item Value Reference Range Interpretation Comments POCT PREG (test code Negative = 1605) On board controls Yes acceptable with C Line (test code = 3574) POCT PREG LOT # (test code = 3575) POCT PREG TEST DATE (test code = 3576) ARGENIS (test code = ARGENIS) accurate development and interpretation of all internal controls [facility]
[2023-01-21 02:33] LABS: Hematocrit 37.5 % (36.0-45.0); Lymphocytes % 33.7 % (15.3-44.8); MCV 66.4 fL (80-100); MPV 8.7 fL (7.6-11.3); Platelets 316 thou/uL (152-406); RBC Red Blood Cell Count 5.65 M/uL (3.86-4.86)
[2023-01-21] MEDS ORDERED: NA CHLORIDE 0.9% 1,000 ML ONE (02:43)
[2023-01-21 02:53] LABS: Potassium 3.3 mEq/L (3.5-5.1)
[2023-01-21 03:02] LABS: Specific Gravity 1.024 (1.005-1.030)
[2023-01-21 03:18] LABS: Specific Gravity 1.024 (1.005-1.030); Urine Bacteria <20 /HPF (<20); Urine Bilirubin NEGATIVE (Negative); Urine Blood 3+ (OVER) (Negative); Urine Clarity Clear (Clear); Urine Color Light-Yellow (Yellow); Urine Crystals Unidentified Few /HPF (None Seen); Urine Glucose NEGATIVE (Negative); Urine Mucus Slight /HPF (None Seen); Urine Protein NEGATIVE (Negative); Urine RBC >50 /HPF (None Seen); Urine Urobilinogen Normal (Normal); Urine pH 5.5 (5.0-7.0)
--- NOTE | 2023-01-21 03:36 | ER ---
Nurse's Notes [facility] [place] Name: Sil Gaytan Age: 22 yrs Sex: Female : 2000 Arrival Date: 01/21/2023 Time: 02:01 Bed 14 Private MD: Diagnosis: Threatened ;Abnormal uterine and vaginal bleeding, unspecified Presentation: 01/21 02:08 Chief complaint: Patient states: vaginal bleeding started 30-60 minutes ago, with blood rv clots. abd pain, lower are. Coronavirus screen: At this time, the client does not indicate any symptoms associated with coronavirus-19. Ebola Screen: No symptoms or risks identified at this time. Initial Sepsis Screen: Does the patient meet any 2 criteria? No. Patient's initial sepsis screen is negative. Does the patient have a suspected source of infection? No. Patient's initial sepsis screen is negative. Risk Assessment: Do you want to hurt yourself or someone else? Patient reports no desire to harm self or others. Onset of symptoms was January 21, 2023. 02:08 Method Of Arrival: Ambulatory rv 02:08 Acuity: DELMAR 3 rv Triage Assessment: 02:10 General: Appears uncomfortable, Behavior is crying. Pain: Complains of pain in abdomen. rv Neuro: Level of Consciousness is awake, alert, obeys commands, Oriented to person, place, time, situation. Cardiovascular: Capillary refill < 3 seconds Patient's skin is warm and dry. Respiratory: Airway is patent Respiratory effort is even, unlabored. GI: No signs and/or symptoms were reported involving the gastrointestinal system. : Reports vaginal bleeding that is with clots. Derm: Skin is intact. Historical: - Allergies: 02:10 Codeine; rv 02:10 PENICILLINS; rv 02:10 Prednisone; rv - PMHx: 02:10 Asthma; Hypertensive disorder; rv - PSHx: 02:10 ; rv - Immunization history:: Adult Immunizations up to date. - Social history:: Smoking status: Patient denies any tobacco usage or history of. Screenin:11 [facility] ED Fall Risk Assessment (Adult) History of falling in the last 3 months, ha1 including since admission No falls in past 3 months (0 pts) Confusion or Disorientation No (0 pts) Intoxicated or Sedated No (0 pts) Impaired Gait No (0 pts) Mobility Assist Device Used No (0 pt) Altered Elimination No (0 pt) Score/Fall Risk Level 0 - 2 = Low Risk Oriented to surroundings, Maintained a safe environment, Educated pt \T\ family on fall prevention, incl call for assistance when getting out of bed. Abuse screen: Denies threats or abuse. Denies injuries from another. Nutritional screening: No deficits noted. Tuberculosis screening: No symptoms or risk factors identified. Assessment: 02:11 General: Appears uncomfortable, Behavior is calm, cooperative. Pain: Complains of pain ha1 in suprapubic area Pain does not radiate. Pain currently is 5 out of 10 on a pain scale. Quality of pain is described as crampy. Neuro: Level of Consciousness is awake, alert, obeys commands, Oriented to person, place, time, situation. Cardiovascular: Capillary refill < 3 seconds Patient's skin is warm and dry. Respiratory: Airway is patent Trachea midline Respiratory effort is even, unlabored, Respiratory pattern is regular, symmetrical. GI: Abdomen is flat, non-distended. : Reports vaginal bleeding that is bright red, with clots. Derm: Skin is moist, Skin is pink, warm \T\ dry. Vital Signs: 02:08 BP 150 / 88; Pulse 122; Resp 20; Temp 98; Pulse Ox 99% ; Weight 78.47 kg; Height 5 ft. rv 7 in. ; 02:40 BP 142 / 106; Pulse 104; Resp 17 S; Pulse Ox 100% on R/A; ha1 03:20 BP 141 / 95; Pulse 101; Resp 18 S; Pulse Ox 100% on R/A; ha1 02:08 Body Mass Index 27.10 (78.47 kg, 170.18 cm) rv ED Course: 02:02 Patient arrived in ED. jj6 02:05 [facility]illo [facility]C [facility] kb 02:05 Aravind Robbins MD is Attending Physician. kb 02:10 Triage completed. rv 02:10 Arm band placed on right wrist. rv 02:11 Patient has correct armband on for positive identification. Bed in low position. Call ha1 light in reach. Side rails up X 1. Adult w/ patient. 02:12 Donya Han RN is Primary Nurse. ha1 02:30 Inserted saline lock: 20 gauge in right antecubital area, using aseptic technique. ha1 Blood collected. 02:43 Abo/rh Typing Sent. ha1 02:43 Basic Metabolic Panel Sent. ha1 02:43 CBC with Diff Sent. ha1 02:43 Test, Urine Sent. ha1 02:43 Quantitative Hcg Sent. ha1 03:13 Transvaginal Ob In Process Unspecified. EDMS 03:48 Provided Education on: following up with OB . ha1 03:48 No provider procedures requiring assistance completed. IV discontinued, intact, ha1 bleeding controlled, No redness/swelling at site. Pressure dressing applied. Administered Medications: 02:43 Drug: NS 0.9% IV 1000 ml IV at 1000 ml once Route: IV; Rate: 1000 ml; Site: right ha1 antecubital; 03:49 Follow up: Response: No adverse reaction; IV Status: Completed infusion; IV Intake: ha1 1000ml Medication: 03:35 VIS not applicable for this client. ha1 Intake: 03:49 IV: 1000ml; Total: 1000ml. ha1 Outcome: 03:36 Discharge ordered by . rn 03:48 Discharged to home ambulatory, with friend, ha1 03:48 Condition: stable 03:48 Discharge instructions given to patient, family, Instructed on discharge instructions, follow up and referral plans. Demonstrated understanding of instructions, follow-up care, 03:49 Patient left the ED. ha1 Signatures: Dispatcher [employer] EDBreanne Denny, DIRECTOR DATABASE-C DIRECTOR DATABASE-Ckb Aravind Robbins MD MD rn Vicente, Ronaldo, RN RN rv Jeffries, Jennifer jj6 Donya Han RN RN ha1
--- NOTE | 2023-01-21 03:36 | EDPHYS ---
Physician Documentation [facility] Name: Sil Gaytan Age: 22 yrs Sex: Female : 2000 Arrival Date: 01/21/2023 Time: 02:01 Bed 14 Private MD: ED Physician Aravind Robbins HPI: 01/21 02:14 This 22 yrs old Female presents to ER via Ambulatory with complaints of EST 6 WKS kb GESTATION, Vaginal Bleeding, Pelvic Pain. 02:14 Patient is a 22-year-old female G3, who presents for lower abdominal cramping and kb vaginal bleeding that started 30 minutes to 1 hour prior to arrival. LMP December 04, 2022. States cramping is across entire lower abdomen and vaginal bleeding is mild with small clots. Historical: - Allergies: 02:10 Codeine; rv 02:10 PENICILLINS; rv 02:10 Prednisone; rv - PMHx: 02:10 Asthma; Hypertensive disorder; rv - PSHx: 02:10 ; rv - Immunization history:: Adult Immunizations up to date. - Social history:: Smoking status: Patient denies any tobacco usage or history of. ROS: 02:14 Constitutional: Negative for fever, chills, and weight loss, kb 02:14 Abdomen/GI: Positive for abdominal cramps, 02:14 : Positive for vaginal bleeding, 02:14 All other systems are negative, Exam: 02:14 Constitutional: This is a well developed, well nourished patient who is awake, alert, kb and in no acute distress. Head/Face: Normocephalic, atraumatic. ENT: Moist Mucous membranes Cardiovascular: Regular rate Respiratory: Respirations even and unlabored. No increased work of breathing. Talking in full sentences Skin: Warm, dry with normal turgor. Normal color. MS/ Extremity: Pulses equal, no cyanosis. Neurovascular intact. Full, normal range of motion. Neuro: Awake and alert, GCS 15, oriented to person, place, time, and situation. Moves all extremities. Normal gait. 02:14 Abdomen/GI: Inspection: abdomen appears normal, Bowel sounds: normal, Palpation: soft, in all quadrants, mild abdominal tenderness, in the suprapubic area, right lower quadrant and left lower quadrant, Vital Signs: 02:08 BP 150 / 88; Pulse 122; Resp 20; Temp 98; Pulse Ox 99% ; Weight 78.47 kg; Height 5 ft. rv 7 in. ; 02:40 BP 142 / 106; Pulse 104; Resp 17 S; Pulse Ox 100% on R/A; ha1 03:20 BP 141 / 95; Pulse 101; Resp 18 S; Pulse Ox 100% on R/A; ha1 02:08 Body Mass Index 27.10 (78.47 kg, 170.18 cm) rv MDM: 02:05 Patient medically screened. kb 02:14 Differential diagnosis: threatened Ab, inevitable Ab, complete Ab, ectopic . kb Data reviewed: vital signs, nurses notes. 02:36 Transition of care: After a detail discussion of the patient's case, care is kb transferred to Aravind Robbins MD. 03:34 Differential diagnosis: ectopic , urinary tract infection. Counseling: I had a rn detailed discussion with the patient and/or guardian regarding the historical points, exam findings, and any diagnostic results supporting the discharge/admit diagnosis, lab results, radiology results, the need for outpatient follow up, to return to the emergency department if symptoms worsen or persist or if there are any questions or concerns that arise at home. Special discussion: I discussed with the patient/guardian in detail that at this point there is no indication for admission to the hospital. It is understood, however, that if the symptoms persist or worsen the patient needs to return immediately for re-evaluation. Based on the history and exam findings, there is no indication for further emergent testing or inpatient evaluation. I discussed with the patient/guardian the need to see the OB Gyne specialist for further evaluation of the symptoms. ED course: ekg/ecg technician states no gestational sac identified but also nothing in the ovaries or pelvis. hCG 670. Will discharge home with return precautions and told to return in 48 hours for repeat beta hCG. Patient states on Monday morning has outpatient ultrasound ordered as well. No evidence of UTI.. 01/21 02:10 Order name: Abo/rh Typing; Complete Time: 03:24 kb 01/21 02:10 Order name: Basic Metabolic Panel; Complete Time: 03:24 kb 01/21 02:10 Order name: CBC with Diff; Complete Time: 03:45 kb 01/21 02:10 Order name: Test, Urine; Complete Time: 03:24 kb 01/21 02:10 Order name: Quantitative Hcg; Complete Time: 03:24 kb 01/21 02:10 Order name: Urinalysis w/ reflexes; Complete Time: 03:24 kb 01/21 02:50 Order name: CBC Smear Scan; Complete Time: 03:45 EDMS 01/21 02:10 Order name: US Transvaginal Ob kb 01/21 02:10 Order name: IV Saline Lock; Complete Time: 02:43 kb 01/21 02:10 Order name: Labs collected and sent; Complete Time: 02:43 kb 01/21 02:10 Order name: NPO; Complete Time: 02:43 kb Administered Medications: 02:43 Drug: NS 0.9% IV 1000 ml IV at 1000 ml once Route: IV; Rate: 1000 ml; Site: right ha1 antecubital; 03:49 Follow up: Response: No adverse reaction; IV Status: Completed infusion; IV Intake: ha1 1000ml Disposition: 05:05 Co-signature as Attending Physician, Aravind Robbins MD I reviewed the patient's care rn provided by the Advanced Practice Provider and agree with the diagnosis and treatment plan. Disposition Summary: 01/21/23 03:36 Discharge Ordered Notes: Location: Home rn Problem: new rn Symptoms: have improved rn Condition: Stable rn Diagnosis - Threatened rn - Abnormal uterine and vaginal bleeding, unspecified rn Followup: rn - With: Private Physician - When: 48 Hours - Reason: Recheck today's complaints, Repeat Beta-HCG (48 Hours), Re-evaluation by your physician Followup: rn - With: Emergency Department - When: 48 Hours - Reason: Repeat Beta-HCG (48 Hours) Discharge Instructions: - Discharge Summary Sheet rn - Vaginal Bleeding During , First Trimester rn Forms: - Medication Reconciliation Form rn - Thank You Letter rn - Antibiotic brick burner head - Prescription Opioid Use rn - Patient Portal Instructions rn - Leadership Thank You Letter rn - Work release form ha1 Signatures: Dispatcher [employer] EDBreanne Denny, BUMBOATER-C BUMBOATER-CkAravind Garcia MD MD rn Vicente, Ronaldo, RN RN rv Ayala, Heidy, RN RN ha1
[2023-01-21 03:41] LABS: Anisocytosis 1+; Blood Morphology Comment NOTED (NOT SEEN); Platelet Estimate ADEQ; Poikilocytosis SLIGHT; White Blood Cell Scan OK (OK)
[2023-01-21 03:42] LABS: Ovalocytes SLIGHT
[2023-01-21 04:28] VITALS: TEMP 98
[2023-01-21 04:29] VITALS: O2SAT 100
[2023-01-21 04:30] VITALS: BP 141/95
--- NOTE | 2023-01-23 11:17 | RAD REPORT ---
EXAM DESCRIPTION: Ultrasound OB level one < than 14 weeks CLINICAL HISTORY: 22 years Female ABD CRAMPING, , LMP: 12/04/2022 TECHNIQUE: Sonographic imaging of the pelvis was performed transvaginally on 01/21/2023 at 2: 52 AM COMPARISON: No prior studies were available for comparison. FINDINGS: The uterus is normal in size and configuration and measures: 8.2 x 4.8 x 5.6 cm. The end ometrial echo complex measures 1.0 cm in diameter. There is no evidence of an intrauterine gestationa l sac. The cervix is closed and is grossly unremarkable. The right ovary is grossly normal in size, shape and echogenicity and measures: 3.1 x 1.3 x 2.2 cm. There is normal pulsed and color Doppler flow to the right ovary. There are no right adnexal mass lesions.. The left ovary is grossly normal in size, shape and echogenicity and measures: 3.8 x 2.0 x 1.9 cm. There is normal pulsed and color Doppler flow to the left ovary. There is a small 1.1 x 1.2 x 1.2 cm focal area of decreased echogenicity arising from the left ovary likely representing a normal follicl e or corpus luteal cyst. There are no left adnexal mass lesions.. There is no free fluid in the pelvis. IMPRESSION: 1. No evidence of an intrauterine gestational sac, pelvic free fluid or complex adnexal mass lesion. 2. Grossly normal sonographic evaluation of the ovaries. Electronically signed by: Laila Nails DO 01/21/2023 04:37 AM [employer] Due to temporary technical issues with the PACS/Fluency reporting system, reports are being signed by the in house radiologist without review as a courtesy to ensure prompt reporting. The interpreting r adiologist is fully responsible for the content of the report.
== END 2023-01-21 03:49 | disposition home or self-care (01) ==
LOC: ER 02:01
DX: O20.0 Threatened abortion (principal); Z3A.01 Less than 8 weeks gestation of pregnancy
CPT/HCPCS: 36415; 76817; 80048; 81001; 81025; 84702; 85025; 86900; 86901; 96360; 99284; J7030

== ENCOUNTER 2023-01-24 11:00 | Emergency (ER) | payer SELFPAY ==
--- OUTSIDE RECORDS SUMMARY | 2023-01-24 11:19 | XMS REPORT | Continuity of Care Document ---
:2000 Author Organization [facility] t Address [address] [place] [address] Care Team Providers Name Role Phone TUSHAR LAN Primary Care Physician Unavailable KASEY BLANCO Attending Clinician Unavailable KASEY BLANCO Attending Clinician Unavailable TUSHAR LAN Attending Clinician Unavailable Tushar Villarreal Attending Clinician [phone] MOSHE AGOSTO Attending Clinician [facility]available [facility] Attending Clinician Unavailable HETAL NORRIS Attending Clinician Unavailable Hetal Norris MD Attending Clinician Patt Nova RN Attending Clinician Unavailable AUSTIN ARZOLA Attending Clinician Unavailable Austin Arzola MD Attending Clinician Doctor Unassigned, [place] Attending Clinician Unavailable Antonette Solano CNM Attending Clinician ANTONETTE SOLANO Attending Clinician Unavailable SHEREEN TRAVIS Attending Clinician Unavailable Risk, Ahc-Zehmi-Ou/High Attending Clinician Unavailable Shereen Travis MD Attending [...] Prieto MD S Attending Clinician Maria PALACIOS, BANQUET STEWARD, R Attending Clinician Fer, Ang-Rmchp Attending Clinician [...] Effective Date Expiration Date Daniel del angel [facility] STAR [id number] 2021 00:00:00 Problems Condition Condition Condition Status Onset Resolution Last Treating Co mments Source Name Details Category Date Date Treatment Clinician Date Well woman Well woman Disease Active U nivers exam exam 7-12 ity of 00:00: [facility] Routine Routine Disease Active Univers 6-16 [place] of [place] [facility] Disease Active Uni vers induced induced 6-02 ity of hypertensi hypertens[place] 00[place], [place], 00 Medical antepartum antepartum Br anch Disease Active U nivers state state 6-02 ity of 00:00: [place] [facility] Obesity Obesity Disease Active Univers (BMI (BMI 5-28 ity of 30-39.9) 30-39.9) 00:00: [facility] Branch Postoperat Postoperat Disease Active U nivers chris fever chris fever 5-28 ity of 00:00: [facility] Disease Active Univers premature premature 5-25 ity of rupture of rupture of 00:[place] membranes membranes [address] [facility] (PPROM) (PPROM) [place] with onset with onset of labor of labor within 24 within 24 hours of hours of rupture in rupture in third third trimester, trimester, antepartum antepartum 36 weeks 36 weeks Disease Active Unive rs gestation gestation 5-25 ity of of of 00:00: [place] 00 [facility] Liveborn Liveborn Disease Active Unive rs infant, of , of 5-25 it y of [place] , , 00 Me dical born in born in [place] [facility] by by delivery delivery UTI in UTI in Disease Active Overview: Univer s 5-24 Formattin i ty of 00:00: g of this 00 note Medical might be Branch different from the original. Per meds sent and patient notified Supervisio Supervisio Disease Active U david n of n of 3-02 ity of high-risk high-risk 00:[place] 00 [facility] Multiparit Multiparit Disease Active U david y y 3-02 ity of 00:00: [place] 00 Medical Branch History of History of [...] flu 0-27 ity of vaccine vaccine 00:00: [place] 00 Medical Branch History of History of Disease Active 2021-02 U nivers anxiety anxiety 0-27 ity of and and 00:00: [place] depression depression 00 Hi dical Branch Missed Missed Disease Active 2021-02 Univers menses menses 0-13 ity of 00:00: [place] 00 Medical Branch History of History of Disease Active 2021-02 U nivers 0-13 ity of delivery, delivery, 00:00: Inessa taylor currently currently 00 Medi lottie Branch Other Other Disease Active Univers general general 8-02 ity of counseling counseling 00:00[place] and advice and advice 00 Hi dical for for Branch contracept contracept chris chris management management Elevated Elevated Disease Active Unive rs blood blood 8-02 ity of pressure pressure 00:00: [place] reading [...] SDOH University o f Alcohol Std Drinks [place] [facility] History SDOH University o f Alcohol Binge [place] [facility] History SDOH University o f Alcohol Comment [place] Med ical Branch Sexual orientation [facility] Exposure to 2022-07-11 2022-07-21 Not sure University of SARS-CoV-2 (event) 00:00:00 10:35:00 [facility] History of Social 2021-12-23 2021-12-23 Univers ity of function 00:00:00 00:00:00 [facility] Alcohol intake 2020-06-23 2020-06-23 Lifetime University of 00:00:00 00:00:00 non-drinker [place] Medical (finding) Branch Tobacco use and 2018-12-20 2018-12-20 Smokeless Universit y of exposure 00:00:00 00:00:00 tobacco non-user [facility] dical Branch History SDOH 2018-12-20 2018-12-20 1 University o f Alcohol Frequency 00:00:00 00:00:00 [facility] edical Branch Sex Assigned At 2000 2002 Universit y of 00:00:00 00:00:00 [facility] Smoking Status Start Date Stop Date Source Never smoked tobacco [facility] Medications Ordered Filled Start Stop Current [...] Until Discontinu ed, Routine labetaloL 2022-0 Yes [id number] 200mg Take 1 U nivers 200 mg 6-02 tablet by ity of tablet 00:00: mouth [place] 00 every 12 Medical (twelve) Branch hours. labetaloL 2022-0 Yes [id number] 200mg Take 1 U nivers 200 mg 6-02 tablet by ity of tablet 00:00: mouth [place] 00 every 12 Medical (twelve) Branch hours. labetaloL 2022-0 Yes [id number] 200mg Take 1 U nivers 200 mg 6-02 tablet by ity of tablet 00:00: mouth [place] 00 every 12 Medical (twelve) Branch hours. labetaloL 2022-0 Yes [id number] 200mg Take 1 U nivers 200 mg 6-02 tablet by ity of tablet 00:00: mouth [place] 00 every 12 Medical (twelve) Branch hours. labetaloL 2022-0 Yes [id number] 200mg Take 1 U nivers 200 mg 6-02 tablet by ity of tablet 00:00: mouth [place] 00 every 12 Medical (twelve) Branch hours. labetaloL 2023-0 Yes [id number] 200mg Take 1 U nivers 200 mg 6-02 tablet by ity of tablet 00:00: mouth [place] 00 every 12 Medical (twelve) Branch hours. labetaloL 2022-0 Yes [id number] 200mg Take 1 U nivers 200 mg 6-02 tablet by ity of tablet 00:00: mouth [place] 00 every 12 Medical (twelve) Branch hours. labetaloL 202-0 Yes [id number] 200mg Take 1 U nivers 200 mg 6-02 tablet by ity of tablet 00:00: mouth [place] 00 every 12 Medical (twelve) Branch hours. labetaloL Yes [id number] 200mg Take 1 U nivers 200 mg [...] First dose [place] mg 00 on [facility] 07/24/22 at Branch 2000, Until Discontinu ed, Routine ceFAZolin 2022- No 1000mg 1,000 mg, Univers (ANCEF) 07-24 IV ity of 1,000 mg in 19:00: 18:59 Piggyback, [place] NaCl 0.9% 00 :00 Q8H ABX, 6 Medi lottie (NS) 100 mL doses, [place] MINI-BAG First dose (after last modificati on) on [place] 07/24/22 at 1400, Last dose on Mon07/26/22 at 0600, Administer over 30 Minutes, 100 mL
Reas on for Anti-Infec tive: Documented Infection< br>Documen brendan Infection Site: Urine
D uration of Therapy: Other (see Comments) rho(D) Yes 300ug 300 mcg, Univer s immune 07-24 Intramuscu ity of globulin 15:24: lar, ONCE, [place] as (RHOGAM) 51 For 1 Medical syringe 300 dose, [place] mcg Conditiona l, Routine HYDROcodone Yes 2{tbl} 2 tablet, Univers -acetaminop 07-24 Oral, ity of hen (NORCO 15:23: Q6HPRN, [place] 5) 5-325 mg 27 Starting Medi lottie tablet 2 on [facility] tablet 07/24/22 at 1023, Until Discontinu ed, Routine, Pain (scale 7-10), Alternate with Ibuprofen HYDROcodone 2023-0 Yes 1{tbl} 1 tablet, Univers -acetaminop 07-24 Oral, ity of hen (NORCO 15:23: Q6HPRN, [place] 5) 5-325 mg 22 Starting Medi lottie tablet 1 on [facility] tablet 07/24/22 at 1023, Until [...] 25 28 Starting Medica l mg on [place] Branch 07/24/22 at 1021, Until Discontinu ed, Routine, Sleep, Itching ondansetron 3-0 Yes 4mg 4 mg, Slow Univers (ZOFRAN 07-24 IV Push, ity of (PF)) 15:21: Q8HPRN, [place] injection 4 28 Starting Medi lottie mg on [facility] 07/24/22 at 1021, Until Discontinu ed, Routine, Nausea and Vomiting (N/V) bisacodyL 2022-0 Yes 10mg 10 mg, Univer s (DULCOLAX) 07-24 Rectal, ity of suppository 15:21: QDAILYPRN, [place] 10 mg 28 Starting Medical on [place] Branch 07/24/22 at 1021, Until Discontinu ed, Routine, Constipati on simethicone 2023-0 Yes 160mg 160 mg, Un odilon (GAS RELIEF 07-24 Oral, ity of (SIMETHICON 15:21: PC+HSPRN, [place] E)) 28 Starting Medical chewable on [facility] tablet 160 07/24/22 at mg [...] 07-23 mouth. ity of fum/folic/d 12:50: 00:00 [place] betancur 40 :00 Medical (-1 Branch ORAL) [...]
D uration of Therapy: 7 days Yes [id number] 1{tbl} Take 1 Univers vitamin 5-27 tablet by ity of w/FA tablet 00:00: mouth in [place] 00 the Medical morning. Branch docusate Yes [id number] 200mg Take 2 U nivers 100 mg 5-27 capsules ity of capsule 00:00: by mouth [place] 00 once daily Medical as needed Branch for Constipati on. ferrous Yes [id number] 325mg Take 1 Un odilon sulfate 325 5-27 tablet by ity of mg (65 mg 00:00: [place] iron) 00 the Medical tablet morning Branch and 1 tablet in the evening. ibuprofen Yes [id number] 600mg Take 1 Univers 600 mg 5-27 tablet by ity of tablet 00:00: mouth [place] 00 every 6 Medical (six) Branch hours as needed (Pain). Take with food or milk. Yes [id number] 1{tbl} Take 1 Univers vitamin 5-27 tablet by ity of w/FA tablet 00:00: mouth in [place] 00 the Medical morning. Branch docusate Yes [id number] 200mg Take 2 U nivers 100 mg 5-27 capsules ity of capsule 00:00: by mouth [place] 00 once daily Medical as needed Branch for Constipati on. ferrous Yes [id number] 325mg Take 1 Un odilon sulfate 325 5-27 tablet by ity of mg (65 mg 00:00: [place] iron) 00 the Medical tablet morning Branch and 1 tablet in the evening. Yes [id number] 1{tbl} Take 1 Univers vitamin 5-27 tablet by ity of w/FA tablet 00:00: mouth in [place] 00 the Medical morning. Branch docusate 0 Yes [id number] 200mg Take 2 U nivers 100 mg 5-27 capsules ity of capsule 00:00: by mouth [place] 00 once daily Medical as needed Branch for Constipati on. ferrous Yes [id number] 325mg Take 1 Un odilon sulfate 325 5-27 tablet by ity of mg (65 mg 00:00: mouth [place] iron) 00 the Medical tablet morning Branch and 1 tablet in the evening. Yes [id number] 1{tbl} Take 1 Univers vitamin 5-27 tablet by ity of w/FA tablet 00:00: mouth in [place] 00 the Medical morning. Branch docusate Yes [id number] 200mg Take 2 U nivers 100 mg 5-27 capsules ity of capsule 00:00: by mouth [place] 00 once daily Medical as needed Branch for Constipati on. ferrous Yes [id number] 325mg Take 1 Un odilon sulfate 325 5-27 tablet by ity of mg (65 mg 00:00: [place] iron) 00 the Medical tablet morning Branch and 1 tablet in the evening. Yes [id number] 1{tbl} Take 1 Univers vitamin 5-27 tablet by ity of w/FA tablet 00:00: mouth in [place] 00 the Medical morning. Branch docusate 0 Yes [id number] 200mg Take 2 U nivers 100 mg 5-27 capsules ity of capsule 00:00: by mouth [place] 00 once daily Medical as needed Branch for Constipati on. ferrous 0 Yes [id number] 325mg Take 1 Un odilon sulfate 325 5-27 tablet by ity of mg (65 mg 00:00: mouth [place] iron) 00 the Medical tablet morning Branch and 1 tablet in the evening. 0 Yes [id number] 1{tbl} Take 1 Univers vitamin 5-27 tablet by ity of w/FA tablet 00:00: mouth in [place] 00 the Medical morning. Branch docusate 0 Yes [id number] 200mg Take 2 U nivers 100 mg 5-27 capsules ity of capsule 00:00: by mouth [place] 00 once daily Medical as needed Branch for Constipati on. ferrous 2022-0 Yes [id number] 325mg Take 1 Un odilon sulfate 325 5-27 tablet by ity of mg (65 mg 00:00: [place] iron[place] 00 the Medical tablet morning Branch and 1 tablet in the evening. 2022-0 Yes [id number] 1{tbl} Take 1 Univers vitamin 5-27 tablet by ity of w/FA tablet 00:00: mouth in [place] 00 the Medical morning. Branch docusate 0 Yes [id number] 200mg Take 2 U nivers 100 mg 5-27 capsules ity of capsule 00:00: by mouth [place] 00 once daily Medical as needed Branch for Constipati on. ferrous 0 Yes [id number] 325mg Take 1 Un odilon sulfate 325 5-27 tablet by ity of mg (65 mg 00:00: [place] iron) 00 the Medical tablet morning Branch and 1 tablet in the evening. 0 Yes [id number] 1{tbl} Take 1 Univers vitamin 5-27 tablet by ity of w/FA tablet 00:00: mouth in [place] 00 the Medical morning. Branch docusate 0 Yes [id number] 200mg Take 2 U nivers 100 mg 5-27 capsules ity of capsule 00:00: by mouth [place] 00 once daily Medical as needed Branch for Constipati on. ferrous 2022-0 Yes [id number] 325mg Take 1 Un odilon sulfate 325 5-27 tablet by ity of mg (65 mg 00:00: mouth [place] iron) 00 the Medical tablet morning Branch and 1 tablet in the evening. 2022-0 Yes [id number] 1{tbl} Take 1 Univers vitamin 5-27 tablet by ity of w/FA tablet 00:00: mouth in [place] 00 the Medical morning. Branch docusate 0 Yes [id number] 200mg Take 2 U nivers 100 mg 5-27 capsules ity of capsule 00:00: by mouth [place] 00 once daily Medical as needed Branch for Constipati on. ferrous 2022-0 Yes [id number] 325mg Take 1 Un odilon sulfate 325 5-27 tablet by ity of mg (65 mg 00:00: mouth [place] iron) 00 the Medical tablet morning Branch and 1 tablet in the evening. 0 Yes [id number] 1{tbl} Take 1 Univers vitamin 5-27 tablet by ity of w/FA tablet 00:00: mouth in [place] 00 the Medical morning. Branch docusate 0 Yes [id number] 200mg Take 2 U nivers 100 mg 5-27 capsules ity of capsule 00:00: by mouth [place] 00 once daily Medical as needed Branch for Constipati on. ferrous Yes [id number] 325mg Take 1 Un odilon sulfate 325 5-27 tablet by ity of mg (65 mg 00:00: mouth [place] iron[place] 00 the Medical tablet morning Branch and 1 tablet in the evening. 0 Yes [id number] 1{tbl} Take 1 Univers vitamin 5-27 tablet by ity of w/FA tablet 00:00: mouth in [place] 00 the Medical morning. Branch docusate 0 Yes [id number] 200mg Take 2 U nivers 100 mg 5-27 capsules ity of capsule 00:00: by mouth [place] 00 once daily Medical as needed Branch for Constipati on. ferrous 0 Yes [id number] 325mg Take 1 Un odilon sulfate 325 5-27 tablet by ity of mg (65 mg 00:00: mouth [place] iron[place] 00 the Medical tablet morning Branch and 1 tablet in the evening. 2022-0 Yes [id number] 1{tbl} Take 1 Univers vitamin 5-27 tablet by ity of w/FA tablet 00:00: mouth in [place] 00 the Medical morning. Branch docusate 0 Yes [id number] 200mg Take 2 U nivers 100 mg 5-27 capsules ity of capsule 00:00: by mouth [place] 00 once daily Medical as needed Branch for Constipati on. ferrous 0 Yes [id number] 325mg Take 1 Un odilon sulfate 325 5-27 tablet by ity of mg (65 mg 00:00: mouth [place] iron[place] 00 the Medical tablet morning Branch and 1 tablet in the evening. 2022-0 Yes [id number] 1{tbl} Take 1 Univers vitamin 5-27 tablet by ity of w/FA tablet 00:00: mouth in [place] 00 the Medical morning. Branch docusate Yes [id number] 200mg Take 2 U nivers 100 mg 5-27 capsules ity of capsule 00:00: by mouth [place] 00 once daily Medical as needed Branch for Constipati on. ferrous Yes [id number] 325mg Take 1 Un odilon sulfate 325 5-27 tablet by ity of mg (65 mg 00:00: mouth [place] iron[place] 00 the Medical tablet morning Branch and 1 tablet in the evening. Yes [id number] 1{tbl} Take 1 Univers vitamin 5-27 tablet by ity of w/FA tablet 00:00: mouth in [place] 00 the Medical morning. Branch docusate Yes [id number] 200mg Take 2 U nivers 100 mg 5-27 capsules ity of capsule 00:00: by mouth [place] 00 once daily Medical as needed Branch for Constipati on. ferrous Yes [id number] 325mg Take 1 Un odilon sulfate 325 [...] Indication s: acute pain ibuprofen 2022- No [id number] 600mg Take 1 Univers 600 mg 5-27 [...] Infusion, Branch ONCE, 1 dose, On [facility] 07/21/22 at 1630, Routine diphenhydrA 2022-0 Yes 25mg 25 mg, Univ ers MINE 5-25 Slow IV ity of (BENADRYL) 20:34: Push, [place] injection 05 Q6HPRN, Medical 25 mg Starting Branch on [facility] 07/21/22 at 1534, Until Discontinu ed, Routine, Itching diphenhydrA 2022-0 Yes 25mg 25 mg, Univ ers MINE 5-25 Oral, ity of (BENADRYL) 20:34: Q6HPRN, [place] tablet 25 05 Starting Medica l mg on [facility] Branch 07/21/22 at 1534, Until Discontinu ed, Routine, Sleep, Itching ondansetron 2022-0 Yes 4mg 4 mg, Slow Univers (ZOFRAN 5-25 IV Push, ity of (PF)) 20:34: Q8HPRN, [place] injection 4 05 Starting Medi lottie mg on [facility] Branch 07/21/22 at 1534, Until Discontinu ed, Routine, Nausea and Vomiting (N/V) bisacodyL 0 Yes 10mg 10 mg, Univer s (DULCOLAX) 5-25 Rectal, ity of suppository 20:34: QDAILYPRN, [place] 10 mg 05 Starting Medical on [facility] Branch 07/21/22 at 1534, Until Discontinu ed, Routine, Constipati on simethicone 2022-0 Yes 160mg 160 mg, Un odilon (GAS RELIEF 5-25 Oral, ity of (SIMETHICON 20:34: PC+HSPRN, [place] E)) 05 Starting Medical chewable on [facility] tablet 160 07/21/22 at mg 1534, Until [...] 05 Starting Medica l mg on [facility] Branch 07/21/22 at 1534, Until Discontinu ed, Routine, Sleep, Itching ondansetron 0 Yes 4mg 4 mg, Slow Univers (ZOFRAN 5-25 IV Push, ity of (PF)) 20:34: Q8HPRN, [place] injection 4 05 Starting Medi lottie mg on [facility] Branch 07/21/22 at 1534, Until Discontinu ed, Routine, Nausea and Vomiting (N/V) bisacodyL 2022-0 Yes 10mg 10 mg, Univer s (DULCOLAX) 5-25 Rectal, ity of suppository 20:34: QDAILYPRN, [place] 10 mg 05 Starting Medical on [facility] Branch 07/21/22 at 1534, Until Discontinu ed, Routine, Constipati on simethicone 2022-0 Yes 160mg 160 mg, Un odilon (GAS RELIEF 5-25 Oral, ity of (SIMETHICON 20:34: PC+HSPRN, [place] E)) 05 Starting Medical chewable on [facility] Branch tablet 160 07/21/22 at mg [...] ity of 2,000 mg in 19:30: 19:07 [place], [place] NaCl 0.9% 00 :00 ONCE, 1 [...] 19 Medical (-1 Branch ORAL) Nitrofurant Yes [id number] 100mg Take 1 Univers oin&Nit. 5-23 capsule by ity o f Macrocryst 00:00: mouth in [place] 100 mg 00 the Medical capsule morning Branch and 1 capsule in the evening. Nitrofurant 0 Yes [id number] 100mg Take 1 Univers oin&Nit. 5-23 capsule by ity o f Macrocryst 00:00: mouth in [place] 100 mg 00 the Medical capsule morning Branch and 1 capsule in the evening. Nitrofurant 0 Yes [id number] 100mg Take 1 Univers oin&Nit. 5-23 capsule by ity o f Macrocryst 00:00: mouth in [place] 100 mg 00 the Medical capsule morning Branch and 1 capsule in the evening. Nitrofurant 2022- No [id number] 100mg Take 1 Univers oin&Nit. 5-23 05-28 capsule by ity of Macrocryst 00:00: 00:00 mouth [place] 100 mg 00 :00 the Medical capsule morning Branch and 1 capsule in the evening. Yes Take by Univer s 25/iron 5-21 mouth. ity of fum/folic/d 12:50: [facility] 57 Medical (-1 Branch ORAL) Yes Take by Univer s 25/iron 5-21 mouth. ity of fum/folic/d 12:50: [facility] 57 Medical (-1 Branch ORAL) Yes Take by Univer s 25/iron 5-15 mouth. ity of fum/folic/d 03:19: [facility] 16 Medical (-1 Branch ORAL) Yes Take by Univer s 25/iron 5-15 mouth. ity of fum/folic/d 03:19: [facility] 16 Medical (-1 Branch ORAL) Yes Take by Univer s 25/iron 5-15 mouth. ity of fum/folic/d 03:19: [facility] 16 Medical (-1 Branch [...] 25/iron 5-10 mouth. ity of fum/folic/d 05:26: [facility] 51 Medical (-1 Branch ORAL) Yes Take by Univer s 25/iron 5-10 mouth. ity of fum/folic/d 05:26: [facility] 51 Medical (-1 Branch ORAL) Yes Take by Univer s 25/iron 5-10 mouth. ity of fum/folic/d 05:26: [facility] 51 Medical (-1 Branch ORAL) metroNIDAZO 2022-0 2022- No [id number] 500mg Take 1 Univers LE 500 mg 2-16 -24 tablet by ity of tablet 00:00: 05:59 mouth in [place] 00 :00 the Medical morning Branch and 1 tablet in the evening. Do all this for 7 days. metroNIDAZO 2023-0 2023- No [id number] 500mg Take 1 Univers LE 500 mg 2-16 -24 tablet by ity of tablet 00:00: 05:59 mouth in [place] 00 :00 the Medical morning Branch and 1 tablet in the evening. Do all this for 7 days. metroNIDAZO 2023-0 2023- No [id number] 500mg Take 1 Univers LE 500 mg 216 -24 tablet by ity of tablet 00:00: 05:59 mouth in [place] 00 :00 the Medical morning Branch and 1 tablet in the evening. Do all this for 7 days. metroNIDAZO 2023-0 2023- No [id number] 500mg Take 1 Univers LE 500 mg 2-24 tablet by ity of tablet 00:00: 05:59 mouth in [place] 00 :00 the Medical morning Branch and 1 tablet in the evening. Do all this for 7 days. metroNIDAZO 2023-0 2023- No [id number] 500mg Take 1 Univers LE 500 mg 04-14-24 tablet by ity of tablet 00:00: 05:59 mouth in [place] 00 :00 the [facility] morning Branch and 1 tablet in the evening. Do all this for 7 days. hydroxyprog 2023-0 3- No [id number] 275mg Univers esterone(PF 03-31 ity of ) (KATHLEEN 06:00: 04:59 [place] AUTO-INJECT 00 :00 Medical OR) 275 Branch mg/1.1 mL injection 275 mg hydroxyprog 2023-0 2023- No [id number] 275mg Univers esterone(PF 03-31 ity of ) (KATHLEEN 06:00: 04:59 [place] AUTO-INJECT 00 :00 Medical OR) 275 Branch mg/1.1 mL injection 275 mg hydroxyprog 2023-0 2023- No [id number] 275mg 275 mg, Univers esterone(PF 03-31 Subcutaneo i ty of ) (KATHLEEN 06:00: 04:59 us, [place] AUTO-INJECT 00 :00 QWEEKLY, [facility] OR) 275 16 doses, Branch mg/1.1 mL First dose injection on [place] 275 mg 03/31/22 at 0000, Last dose on [place] 07/14/22 at 0000, Routine hydroxyprog 2023-0 2023- No [id number] 275mg Univers esterone(PF 03-31 ity of ) (KATHLEEN 06:00: 04:59 [place] AUTO-INJECT 00 :00 Medical OR) 275 Branch mg/1.1 mL injection 275 mg hydroxyprog 2023-0 2023- No [id number] 275mg 275 mg, Univers esterone(PF 03-31 Subcutaneo i ty of ) (KATHLEEN 06:00: 04:59 , [place] AUTO-INJECT 00 :00 QWEEKLY, [facility] OR) 275 16 doses, Branch mg/1.1 mL First dose injection on [place] 275 mg 03/31/22 at 0000, Last dose on [place] 07/14/22 at 0000, Routine hydroxyprog 2023-0 2023- No [id number] 275mg Univers esterone(PF 03-31 ity of ) (KATHLEEN 06:00: 04:59 [place] AUTO-INJECT 00 :00 Medical OR) 275 Branch mg/1.1 mL injection 275 mg hydroxyprog 2023-0 2023- No [id number] 275mg Univers esterone(PF 03-31 ity of ) (KATHLEEN 06:00: 04:59 [place] AUTO-INJECT 00 :00 Medical OR) 275 Branch mg/1.1 mL injection 275 mg hydroxyprog 2023-0 2023- No [id number] 275mg Univers esterone(PF 03-31 ity of ) (KATHLEEN 06:00: 04:59 [place] AUTO-INJECT 00 :00 Medical OR) 275 Branch mg/1.1 mL injection 275 mg hydroxyprog 2023-0 2023- No [id number] 275mg Univers esterone(PF 03-3125 ity of ) (KATHLEEN 06:00: 04:59 [place] AUTO-INJECT 00 :00 Medical OR) 275 Branch mg/1.1 mL injection 275 mg hydroxyprog 2023-0 2023- No [id number] 275mg Univers esterone(PF 2-02 05-25 ity of ) (KATHLEEN 06:00: 04:59 [place] AUTO-INJECT 00 :00 Medical OR) 275 Branch mg/1.1 mL injection 275 mg hydroxyprog 2023-0 2023- No [id number] 275mg 275 mg, Univers esterone(PF 03-31 Subcutaneo i ty of ) (KATHLEEN 06:00: 04:59 [place], [place] AUTO-INJECT 00 :00 QWEEKLY, Medi lottie OR) 275 16 doses, Branch mg/1.1 mL First dose injection on [place] 275 mg 03/31/22 at 0000, Last dose on [place] 07/14/22 at 0000, Routine hydroxyprog 2023-0 2023- No [id number] 275mg Univers esterone(PF 03-31 ity of ) (KATHLEEN 06:00: 04:59 [place] AUTO-INJECT 00 :00 Medical OR) 275 Branch mg/1.1 mL injection 275 mg hydroxyprog 2023-0 2023- No [id number] 275mg Univers esterone(PF 03-31 ity of ) (KATHLEEN 06:00: 04:59 [place] AUTO-INJECT 00 :00 Medical OR) 275 Branch mg/1.1 mL injection 275 mg hydroxyprog 2023-0 2023- No [id number] 275mg Univers esterone(PF 03-31 ity of ) (KATHLEEN 06:00: 04:59 [place] AUTO-INJECT 00 :00 Medical OR) 275 Branch mg/1.1 mL injection 275 mg hydroxyprog 2023-0 2023- No [id number] 275mg 275 mg, Univers esterone(PF 03-31 Subcutaneo i ty of ) (KATHLEEN 06:00: 04:59 [place], [place] AUTO-INJECT 00 :00 QWEEKLY, [facility] [facility] OR) 275 16 doses, Branch mg/1.1 mL First dose injection on Alissa 275 mg 03/31/22 at 0000, Last dose on Alissa 07/14/22 at 0000, Routine hydroxyprog 2023-0 2023- No [id number] 275mg [facility] ester[facility](PF 03-31 ity of ) (KATHLEEN 06:00: 04:59 [place] AUTO-INJECT 00 :00 Medical OR) 275 Branch mg/1.1 mL injection 275 mg hydroxyprog 2023-0 2023- No [id number] 275mg 275 mg, [facility] esterone(PF 03-31 Subcutaneo i ty of ) (KATHLEEN 06:00: 04:59 us, [place] AUTO-INJECT 00 :00 QWEEKLY, [facility] OR) 275 16 doses, Branch mg/1.1 mL First dose injection on Alissa 275 mg 03/31/22 at 0000, Last dose on Alissa 07/14/22 at 0000, Routine hydroxyprog 2023-0 2023- No [id number] 275mg [facility] ester[facility](PF 03-31 ity of ) (KATHLEEN 06:00: 04:59 [place] AUTO-INJECT 00 :00 Medical OR) 275 Branch mg/1.1 mL injection 275 mg hydroxyprog 2023-0 2023- No [id number] 275mg 275 mg, [facility] esterone(PF 03-31 Subcutaneo i ty of ) (KATHLEEN 06:00: 04:59 us, [place] AUTO-INJECT 00 :00 QWEEKLY, [facility] OR) 275 16 doses, Branch mg/1.1 mL First dose injection on Alissa 275 mg 03/31/22 at 0000, Last dose on [place]issa 07/14/22 at 0000, Routine hydroxyprog 2023-0 2023- No [id number] 275mg [facility] ester[facility](PF 03-31 ity of ) (KATHLEEN 06:00: 04:59 [place] AUTO-INJECT 00 :00 Medical OR) 275 Branch mg/1.1 mL injection 275 mg hydroxyprog 2023-0 2023- No [id number] 275mg 275 mg, [facility] esterone(PF 03-31 Subcutaneo i ty of ) (KATHLEEN 06:00: 04:59 us, [place] AUTO-INJECT 00 :00 QWEEKLY, [facility] OR) 275 16 doses, Branch mg/1.1 mL First dose injection on Alissa 275 mg 03/31/22 at 0000, Last dose on [place]issa 07/14/22 at 0000, Routine hydroxyprog 2023-0 2023- No [id number] 275mg [facility] ester[facility](PF 03-31 ity of ) (KATHLEEN 06:00: 04:59 [place] AUTO-INJECT 00 :00 Medical OR) 275 Branch mg/1.1 mL injection 275 mg hydroxyprog 2023-0 2023- No [id number] 275mg [facility] ester[facility](PF 03-31 ity of ) (KATHLEEN 06:00: 04:59 [place] AUTO-INJECT 00 :00 Medical OR) 275 Branch mg/1.1 mL injection 275 mg hydroxyprog 2023-0 2023- No [id number] 275mg 275 mg, [facility] esterone(PF 03-31 Subcutaneo i ty of ) (KATHLEEN 06:00: 04:59 us, [place] AUTO-INJECT 00 :00 QWEEKLY, [facility] OR) 275 16 doses, Branch mg/1.1 mL First dose injection on Alissa 275 mg 03/31/22 at 0000, Last dose on Alissa 07/14/22 at 0000, Routine hydroxyprog 2023-0 2023- No [id number] 275mg [facility] ester[facility](PF 03-31 ity of ) (KATHLEEN 06:00: 04:59 [place] AUTO-INJECT 00 :00 Medical OR) 275 Branch mg/1.1 mL injection 275 mg hydroxyprog 2023-0 2023- No [id number] 275mg 275 mg, [facility] esterone(PF 03-31 Subcutaneo i ty of ) (KATHLEEN 06:00: 04:59 us, [place] AUTO-INJECT 00 :00 QWEEKLY, [facility] OR) 275 16 doses, Branch mg/1.1 mL First dose injection on Alissa 275 mg 03/31/22 at 0000, Last dose on Alissa 07/14/22 at 0000, Routine hydroxyprog 2023-0 2023- No [id number] 275mg [facility] ester[facility](PF 03-31 ity of ) (KATHLEEN 06:00: 04:59 [place] AUTO-INJECT 00 :00 Medical OR) 275 Branch mg/1.1 mL injection 275 mg hydroxyprog 2023-0 2023- No [id number] 275mg 275 mg, [facility] ester[facility](PF 03-31 Subcutaneo i ty of ) (KATHLEEN 06:00: 04:59 us, [place] AUTO-INJECT 00 :00 QWEEKLY, [facility] OR) 275 16 doses, Branch mg/1.1 mL First dose injection on Alissa 275 mg 03/31/22 at 0000, Last dose on [place] 07/14/22 at 0000, Routine hydroxyprog 2023-0 2023- No [id number] 275mg [facility] ester[facility](PF 03-31 ity of ) (KATHLEEN 06:00: 04:59 [place] AUTO-INJECT 00 :00 Medical OR) 275 Branch mg/1.1 mL injection 275 mg hydroxyprog 2023-0 2023- No [id number] 275mg 275 mg, [facility] esterone(PF 03-31 Subcutaneo i ty of ) (KATHLEEN 06:00: 04:59 us, [place] AUTO-INJECT 00 :00 QWEEKLY, [facility] OR) 275 16 doses, Branch mg/1.1 mL First dose injection on Alissa 275 mg 03/31/22 at 0000, Last dose on Alissa 07/14/22 at 0000, Routine hydroxyprog 2023-0 2023- No [id number] 275mg [facility] ester[facility](PF 03-31 ity of ) (KATHLEEN 06:00: 04:59 [place] AUTO-INJECT 00 :00 Medical OR) 275 Branch mg/1.1 mL injection 275 mg hydroxyprog 2023-0 2023- No [id number] 275mg 275 mg, [facility] esterone(PF 03-31 Subcutaneo i ty of ) (KATHLEEN 06:00: 04:59 us, [place] AUTO-INJECT 00 :00 QWEEKLY, [facility] OR) 275 16 doses, Branch mg/1.1 mL First dose injection on Alissa 275 mg 03/31/22 at 0000, Last dose on [place]issa 07/14/22 at 0000, Routine hydroxyprog 2023-0 2023- No [id number] 275mg [facility] ester[facility](PF 03-31 ity of ) (KATHLEEN 06:00: 04:59 [place] AUTO-INJECT 00 :00 Medical OR) 275 Branch mg/1.1 mL injection 275 mg hydroxyprog 2023-0 2023- No [id number] 275mg 275 mg, [facility] ester[facility](PF 03-31 Subcutaneo i ty of ) (KATHLEEN 06:00: 04:59 us, [place] AUTO-INJECT 00 :00 QWEEKLY, [facility] OR) 275 16 doses, Branch mg/1.1 mL First dose injection on Alissa 275 mg 03/31/22 at 0000, Last dose on [place]issa 07/14/22 at 0000, Routine hydroxyprog 2023-0 2023- No [id number] 275mg [facility] ester[facility](PF 03-31 ity of ) (KATHLEEN 06:00: 04:59 [place] AUTO-INJECT 00 :00 Medical OR) 275 Branch mg/1.1 mL injection 275 mg hydroxyprog 2023-0 2023- No [id number] 275mg [employer] ester[facility](PF 03-31 ity of ) (KATHLEEN 06:00: 04:59 [place] AUTO-INJECT 00 :00 Medical OR) 275 Branch mg/1.1 mL injection 275 mg hydroxyprog 2023-0 2023- No [id number] 275mg [facility] ester[facility](PF 03-31 ity of ) (KATHLEEN 06:00: :59 [place] AUTO-INJECT 00 :00 Medical OR) 275 Branch mg/1.1 mL injection 275 mg hydroxyprog 2023-0 2023- No [id number] 275mg [facility] ester[facility](PF 03-31 ity of ) (KATHLEEN 06:: :59 [place] AUTO-INJECT 00 :00 Medical OR) 275 Branch mg/1.1 mL injection 275 mg hydroxyprog 2023-0 2023- No [id number] 275mg [facility] ester[facility](PF 03-31 ity of ) (KATHLEEN 06:: :59 [place] AUTO-INJECT 00 :00 Medical OR) 275 Branch mg/1.1 mL injection 275 mg hydroxyprog 2023-0 2023- No [id number] 275mg [facility] ester[facility](PF 03-31 ity of ) (KATHLEEN 06:: :59 [place] AUTO-INJECT 00 :00 Medical OR) 275 Branch mg/1.1 mL injection 275 mg hydroxyprog 2023-0 2023- No [id number] 275mg [facility] ester[facility](PF 03-31 ity of ) (KATHLEEN 06:: :59 [place] AUTO-INJECT 00 :00 Medical OR) 275 Branch mg/1.1 mL injection 275 mg hydroxyprog 2023-0 2023- No [id number] 275mg [facility] ester[facility](PF 03-31 ity of ) (KATHLEEN 06:00: :59 [place] AUTO-INJECT 00 :00 Medical OR) 275 Branch mg/1.1 mL injection 275 mg hydroxyprog 2023-0 2023- No [id number] 275mg [facility] ester[facility](PF 03-31 ity of ) (KATHLEEN 06:00: 04:59 [place] AUTO-INJECT 00 :00 Medical OR) 275 Branch mg/1.1 mL injection 275 mg hydroxyprog 2023-0 2023- No [id number] 275mg [facility] ester[facility](PF 03-31 ity of ) (KATHLEEN 06:00: 04:59 [place] AUTO-INJECT 00 :00 Medical OR) 275 Branch mg/1.1 mL injection 275 mg hydroxyprog 2023-0 2023- No [id number] 275mg [facility] ester[facility](PF 03-31 ity of ) (KATHLEEN 06:00: 04:59 [place] AUTO-INJECT 00 :00 Medical OR) 275 Branch mg/1.1 mL injection 275 mg hydroxyprog 2023-0 2023- No [id number] 275mg [facility] ester[facility](PF 03-24 ity of ) (KATHLEEN 16:45: 15:59 [place] AUTO-INJECT 00 :00 Medical OR) 275 Branch mg/1.1 mL injection 275 mg hydroxyprog 2023-0 2023- No [id number] 275mg 275 mg, [facility] ester[facility](PF 03-24 Subcutaneo [...] weekly. Medical injection Branch hydroxyprog 2023-0 Yes [id number] 275mg inject 1.1 [facility] ester[facility],PF 1-09 mL under ity of , 275 00:00: the skin [place] mg/1.1 mL 00 weekly. Medical injection Branch hydroxyprog 2023-0 Yes 275mg inject 1.1 [facility] ester[facility],PF 1-09 mL under ity of , 275 00:00: the skin [place] mg/1.1 mL 00 weekly. Medical injection Branch hydroxyprog 2023-0 Yes [id number] 275mg inject 1.1 [facility] ester[facility],PF 1-09 mL under ity of , 275 00:00: the skin [place] mg/1.1 mL 00 weekly. Medical injection Branch hydroxyprog 2023-0 Yes 275mg inject 1.1 [facility] ester[facility],PF 1-09 mL under ity of , 275 00:00: the skin [place] mg/1.1 mL 00 weekly. Medical injection Branch hydroxyprog 2023-0 Yes [id number] 275mg inject 1.1 [facility] ester[facility],PF 1-09 mL under ity of , 275 00:00: the skin [place] mg/1.1 mL 00 weekly. Medical injection Branch hydroxyprog 2023-0 Yes 275mg inject 1.1 [facility] ester[facility],PF 1-09 mL under ity of , 275 00:00: the skin [place] mg/1.1 mL 00 weekly. Medical injection Branch hydroxyprog 2023-0 Yes [id number] 275mg inject 1.1 [facility] ester[facility],PF 1-09 mL under ity of , 275 00:00: the skin [place] mg/1.1 mL 00 weekly. Medical injection Branch hydroxyprog 2023-0 Yes 275mg inject 1.1 [facility] ester[facility],PF 1-09 mL under ity of , 275 00:00: the skin [place] mg/1.1 mL 00 weekly. Medical injection Branch hydroxyprog 2023-0 Yes [id number] 275mg inject 1.1 [facility] ester[facility],PF 1-09 mL under ity of , 275 00:00: the skin [place] mg/1.1 mL 00 weekly. Medical injection Branch hydroxyprog 2023-0 Yes 275mg inject 1.1 [facility] ester[facility],PF 1-09 mL under ity of , 275 00:00: the skin [place] mg/1.1 mL 00 weekly. Medical injection Branch hydroxyprog 2023-0 Yes [id number] 275mg inject 1.1 [facility] ester[facility],PF 1-09 mL under ity of , 275 00:00: the skin [place] mg/1.1 mL 00 weekly. Medical injection Branch hydroxyprog 2023-0 Yes 275mg inject 1.1 [facility] ester[facility],PF 1-09 mL under ity of , 275 00:00: the skin [place] mg/1.1 mL 00 weekly. Medical injection Branch hydroxyprog 2023-0 Yes [id number] 275mg inject 1.1 [facility] esterone,PF 1-09 mL under ity of , 275 00:00: the skin [place] mg/1.1 mL 00 weekly. Medical injection Branch hydroxyprog 2023-0 Yes 275mg inject 1.1 [facility] ester[facility],PF 1-09 mL under ity of , 275 00:00: the skin [place] mg/1.1 mL 00 weekly. Medical injection Branch hydroxyprog 2023-0 Yes [id number] 275mg inject 1.1 [facility] esterone,PF 1-09 mL under ity of , 275 00:00: the skin [place] mg/1.1 mL 00 weekly. Medical injection Branch hydroxyprog 2023-0 Yes 275mg inject 1.1 [facility] ester[facility],PF 1-09 mL under ity of , 275 00:00: the skin [place] mg/1.1 mL 00 weekly. Medical injection Branch hydroxyprog 2023-0 Yes [id number] 275mg inject 1.1 [facility] esterone,PF 1-09 mL under ity of , 275 00:00: the skin [place] mg/1.1 mL 00 weekly. Medical injection Branch hydroxyprog 2023-0 Yes 275mg inject 1.1 [facility] ester[facility],PF 1-09 mL under ity of , 275 00:00: the skin [place] mg/1.1 mL 00 weekly. Medical injection Branch hydroxyprog 2023-0 Yes [id number] 275mg inject 1.1 [facility] ester[facility],PF 1-09 mL under ity of , 275 00:00: the skin [place] mg/1.1 mL 00 weekly. Medical injection Branch hydroxyprog 2023-0 Yes 275mg inject 1.1 [facility] ester[facility],PF 1-09 mL under ity of , 275 00:00: the skin [place] mg/1.1 mL 00 weekly. Medical injection Branch hydroxyprog 2023-0 Yes [id number] 275mg inject 1.1 [facility] ester[facility],PF 1-09 mL under ity of , 275 00:00: the skin [place] mg/1.1 mL 00 weekly. Medical injection Branch hydroxyprog 2023-0 Yes 275mg inject 1.1 [facility] esterone,PF 1-09 mL under ity of , 275 00:00: the skin [place] mg/1.1 mL 00 weekly. Medical injection Branch hydroxyprog 2023-0 Yes [id number] 275mg inject 1.1 [facility] esterone,PF 1-09 mL under ity of , 275 00:00: the skin [place] mg/1.1 mL 00 weekly. Medical injection Branch hydroxyprog 2023-0 Yes 275mg inject 1.1 [facility] esterone,PF 1-09 mL under ity of , 275 00:00: the skin [place] mg/1.1 mL 00 weekly. Medical injection Branch hydroxyprog 2023-0 Yes [id number] 275mg inject 1.1 [facility] ester[facility],PF 1-09 mL under ity of , 275 00:00: the skin [place] mg/1.1 mL 00 weekly. Medical injection Branch hydroxyprog 2023-0 Yes 275mg inject 1.1 [facility] esterone,PF 1-09 mL under ity of , 275 00:00: the skin [place] mg/1.1 mL 00 weekly. Medical injection Branch hydroxyprog 2023-0 Yes [id number] 275mg inject 1.1 [facility] ester[facility],PF 1-09 mL under ity of , 275 00:00: the skin [place] mg/1.1 mL 00 weekly. Medical injection Branch hydroxyprog 2023-0 Yes 275mg inject 1.1 [facility] esterone,PF 1-09 mL under ity of , 275 00:00: the skin [place] mg/1.1 mL 00 weekly. Medical injection Branch hydroxyprog 2023-0 Yes [id number] 275mg inject 1.1 [facility] esterone,PF 1-09 mL under ity of , 275 00:00: the skin [place] mg/1.1 mL 00 weekly. Medical injection Branch hydroxyprog 2023-0 Yes 275mg inject 1.1 [facility] esterone,PF 1-09 mL under ity of , 275 00:00: the skin [place] mg/1.1 mL 00 weekly. Medical injection Branch hydroxyprog 2023-0 Yes [id number] 275mg inject 1.1 [facility] esterone,PF 1-09 mL under ity of , 275 00:00: the skin [place] mg/1.1 mL 00 weekly. Medical injection Branch hydroxyprog 2023-0 Yes 275mg inject 1.1 [facility] esterone,PF 1-09 mL under ity of , 275 00:00: the skin [place] mg/1.1 mL 00 weekly. Medical injection Branch hydroxyprog 2023-0 Yes [id number] 275mg inject 1.1 [facility] esterone,PF 1-09 mL under ity of , 275 00:00: the skin [place] mg/1.1 mL 00 weekly. Medical injection Branch hydroxyprog 2023-0 Yes 275mg inject 1.1 [facility] esterone,PF 1-09 mL under ity of , 275 00:00: the skin [place] mg/1.1 mL 00 weekly. Medical injection Branch hydroxyprog 2023-0 Yes [id number] 275mg inject 1.1 [facility] esterone,PF 1-09 mL under ity of , 275 00:00: the skin [place] mg/1.1 mL 00 weekly. Medical injection Branch hydroxyprog 2023-0 Yes 275mg inject 1.1 [facility] esterone,PF 1-09 mL under ity of , 275 00:00: the skin [place] mg/1.1 mL 00 weekly. Medical injection Branch hydroxyprog 2023-0 Yes [id number] 275mg inject 1.1 [facility] esterone,PF 1-09 mL under ity of , 275 00:00: the skin [place] mg/1.1 mL 00 weekly. Medical injection Branch hydroxyprog 2023-0 Yes 275mg inject 1.1 [facility] esterone,PF 1-09 mL under ity of , 275 00:00: the skin [place] mg/1.1 mL 00 weekly. Medical injection Branch hydroxyprog 2023-0 Yes [id number] 275mg inject 1.1 [facility] esterone,PF 1-09 mL under ity of , 275 00:00: the skin [place] mg/1.1 mL 00 weekly. Medical injection Branch hydroxyprog 2023-0 Yes 275mg inject 1.1 [facility] esterone,PF 1-09 mL under ity of , 275 00:00: the skin [place] mg/1.1 mL 00 weekly. Medical injection Branch hydroxyprog 2023-0 Yes [id number] 275mg inject 1.1 [facility] esterone,PF 1-09 mL under ity of , 275 00:00: the skin [place] mg/1.1 mL 00 weekly. Medical injection Branch hydroxyprog 2023-0 Yes 275mg inject 1.1 [facility] esterone,PF 1-09 mL under ity of , 275 00:00: the skin [place] mg/1.1 mL 00 weekly. Medical injection Branch hydroxyprog 2023-0 Yes [id number] 275mg inject 1.1 [facility] esterone,PF 1-09 mL under ity of , 275 00:00: the skin [place] mg/1.1 mL 00 weekly. Medical injection Branch hydroxyprog 2023-0 Yes 275mg inject 1.1 [facility] esterone,PF 1-09 mL under ity of , 275 00:00: the skin [place] mg/1.1 mL 00 weekly. Medical injection Branch hydroxyprog 2023-0 Yes [id number] 275mg inject 1.1 [facility] esterone,PF 1-09 mL under ity of , 275 00:00: the skin [place] mg/1.1 mL 00 weekly. Medical injection Branch hydroxyprog 2023-0 Yes 275mg inject 1.1 [facility] esterone,PF 1-09 mL under ity of , 275 00:00: the skin [place] mg/1.1 mL 00 weekly. Medical injection Branch hydroxyprog 2023-0 Yes [id number] 275mg inject 1.1 [facility] esterone,PF 1-09 mL under ity of , 275 00:00: the skin [place] mg/1.1 mL 00 weekly. Medical injection Branch hydroxyprog 2023-0 Yes 275mg inject 1.1 [facility] esterone,PF 1-09 mL under ity of , 275 00:00: the skin [place] mg/1.1 mL 00 weekly. Medical injection Branch hydroxyprog 2023-0 Yes [id number] 275mg inject 1.1 [facility] esterone,PF 1-09 mL under ity of , 275 00:00: the skin [place] mg/1.1 mL 00 weekly. Medical injection Branch hydroxyprog 2023-0 Yes 275mg inject 1.1 [facility] esterone,PF 1-09 mL under ity of , 275 00:00: the skin [place] mg/1.1 mL 00 weekly. Medical injection Branch hydroxyprog 2023-0 Yes [id number] 275mg inject 1.1 [facility] esterone,PF 1-09 mL under ity of , 275 00:00: the skin [place] mg/1.1 mL 00 weekly. Medical injection Branch hydroxyprog 2023-0 Yes 275mg inject 1.1 [facility] esterone,PF 1-09 mL under ity of , 275 00:00: the skin [place] mg/1.1 mL 00 weekly. Medical injection Branch hydroxyprog 2023-0 Yes [id number] 275mg inject 1.1 [facility] esterone,PF 1-09 mL under ity of , 275 00:00: the skin [place] mg/1.1 mL 00 weekly. Medical injection Branch hydroxyprog 2023-0 Yes 275mg inject 1.1 [facility] esterone,PF 1-09 mL under ity of , 275 00:00: the skin [place] mg/1.1 mL 00 weekly. Medical injection Branch hydroxyprog 2023-0 Yes [id number] 275mg inject 1.1 [facility] esterone,PF 1-09 mL under ity of , 275 00:00: the skin [place] mg/1.1 mL 00 weekly. Medical injection Branch hydroxyprog 2023-0 Yes 275mg inject 1.1 [facility] esterone,PF 1-09 mL under ity of , 275 00:00: the skin [place] mg/1.1 mL 00 weekly. Medical injection Branch hydroxyprog 2023-0 Yes [id number] 275mg inject 1.1 [facility] esterone,PF 1-09 mL under ity of , 275 00:00: the skin [place] mg/1.1 mL 00 weekly. Medical injection Branch hydroxyprog 2023-0 Yes 275mg inject 1.1 [facility] esterone,PF 1-09 mL under ity of , 275 00:00: the skin [place] mg/1.1 mL 00 weekly. Medical injection Branch hydroxyprog 2023-0 Yes [id number] 275mg inject 1.1 [facility] esterone,PF 1-09 mL under ity of , 275 00:00: the skin [place] mg/1.1 mL 00 weekly. Medical injection Branch hydroxyprog 2023-0 Yes 275mg inject 1.1 [facility] esterone,PF 1-09 mL under ity of , 275 00:00: the skin [place] mg/1.1 mL 00 weekly. Medical injection Branch hydroxyprog 2023-0 Yes [id number] 275mg inject 1.1 [facility] esterone,PF 1-09 mL under ity of , 275 00:00: the skin [place] mg/1.1 mL 00 weekly. Medical injection Branch hydroxyprog 2023-0 Yes 275mg inject 1.1 [facility] esterone,PF 1-09 mL under ity of , 275 00:00: the skin [place] mg/1.1 mL 00 weekly. Medical injection Branch hydroxyprog 2023-0 Yes [id number] 275mg inject 1.1 [facility] esterone,PF 1-09 mL under ity of , 275 00:00: the skin [place] mg/1.1 mL 00 weekly. Medical injection Branch hydroxyprog 2023-0 Yes 275mg inject 1.1 [facility] esterone,PF 1-09 mL under ity of , 275 00:00: the skin [place] mg/1.1 mL 00 weekly. Medical injection Branch hydroxyprog 2023-0 Yes [id number] 275mg inject 1.1 [facility] esterone,PF 1-09 mL under ity of , 275 00:00: the skin [place] mg/1.1 mL 00 weekly. Medical injection Branch hydroxyprog 2023-0 Yes 275mg inject 1.1 [facility] esterone,PF 1-09 mL under ity of , 275 00:00: the skin [place] mg/1.1 mL 00 weekly. Medical injection Branch hydroxyprog 2023-0 Yes [id number] 275mg inject 1.1 [facility] esterone,PF 1-09 mL under ity of , 275 00:00: the skin [place] mg/1.1 mL 00 weekly. Medical injection Branch hydroxyprog 2023-0 Yes 275mg inject 1.1 [facility] esterone,PF 1-09 mL under ity of , 275 00:00: the skin [place] mg/1.1 mL 00 weekly. Medical injection Branch hydroxyprog 2023-0 Yes [id number] 275mg inject 1.1 [facility] esterone,PF 1-09 mL under ity of , 275 00:00: the skin [place] mg/1.1 mL 00 weekly. Medical injection Branch hydroxyprog 2023-0 Yes 275mg inject 1.1 [facility] esterone,PF 1-09 mL under ity of , 275 00:00: the skin [place] mg/1.1 mL 00 weekly. Medical injection Branch hydroxyprog 2023-0 Yes [id number] 275mg inject 1.1 [facility] esterone,PF 1-09 mL under ity of , 275 00:00: the skin [place] mg/1.1 mL 00 weekly. Medical injection Branch hydroxyprog 2023-0 2023- No 275mg inject 1.1 [facility] ester[facility],PF 1-09 05-25 mL under ity of , 275 00:00: 00:00 the skin [place] mg/1.1 mL 00 :00 weekly. Medical injection Branch hydroxyprog 2023-0 2023- No [id number] 275mg inject 1.1 [facility] esterone,PF - 05-25 mL under ity of , 275 00:00: 00:00 the skin [place] mg/1.1 mL 00 :00 weekly. Medical injection Branch hydroxyprog 2022- No 275mg inject 1.1 [facility] ester[facility],PF 1- 05-25 mL under ity of , 275 00:00: 00:00 the skin [place] mg/1.1 mL 00 :00 weekly. Medical injection Branch hydroxyprog 2022- No [id number] 275mg inject 1.1 [facility] esterone,PF - 05-25 mL under ity of , 275 00:00: 00:00 the skin [place] mg/1.1 mL 00 :00 weekly. Medical injection Branch hydroxyprog 2021-02 Yes [id number] 250mg 1 mL by [facility] esterone Intramus[facility] ity o f caproate, 00:00: lar route Jamal as ppres, 250 00 weekly. Medica l mg/mL Branch injection hydroxyprog 2021-02- No [id number] 250mg 1 mL by [facility] esterone 03-07 [...] (1 mL) Branch injection hydroxyprog 2021-02 Yes [id number] 250mg 1 mL by [employer] esterone 2-15 Intramuscu ity o f 250 mg/mL 00:00: lar route [place] as injection 00 weekly. Medical Branch hydroxyprog 2021-02 Yes [id number] 250mg 1 mL by [employer] [place] esterone 2-15 Intramuscu ity o f 250 mg/mL 00:00: lar route [place] as injection 00 weekly. Medical Branch hydroxyprog 2021-02- No [id number] 250mg 1 mL by [employer] esterone 2-15 09 Intramuscu ity of 250 [...] 25/iron 0-13 mouth. ity of fum/folic/d 09:26: [facility] 35 Medical (-1 Branch ORAL) 2021-02 Yes Take by Univer s 25/iron 0-13 mouth. ity of fum/folic/d 09:26: [facility] 35 Medical (-1 Branch ORAL) 2021-02 Yes Take by Univer s 25/iron 0-13 mouth. ity of fum/folic/d 09:26: [facility] 35 Medical (-1 Branch ORAL) 2021-02 Yes Take by Univer s 25/iron 0-13 mouth. ity of fum/folic/d 09:26: [facility] 35 Medical (-1 Branch ORAL) 2021-02 Yes Take by Univer s 25/iron 0-13 mouth. ity of fum/folic/d 09:26: [facility] 35 Medical (-1 Branch ORAL) 2021-02 Yes Take by Univer s 25/iron 0-13 mouth. ity of fum/folic/d 09:26: [facility] 35 Medical (-1 Branch ORAL) 2021-02 Yes Take by Univer s 25/iron 0-13 mouth. ity of fum/folic/d 09:26: [facility] 35 Medical (-1 Branch ORAL) 2021-02 Yes Take by Univer s 25/iron 0-13 mouth. ity of fum/folic/d 09:26: [facility] 35 Medical (-1 Branch ORAL) 2021-02 Yes Take by Univer s 25/iron 0-13 mouth. ity of fum/folic/d 09:26: [facility] 35 Medical (-1 Branch ORAL) 2021-02 Yes Take by Univer s 25/iron 0-13 mouth. ity of fum/folic/d 09:26: [facility] 35 Medical (-1 Branch ORAL) 2021-02 Yes Take by Univer s 25/iron 0-13 mouth. ity of fum/folic/d 09:26: [facility] 35 Medical (-1 Branch ORAL) 2021-02 Yes Take by Univer s 25/iron 0-13 mouth. ity of fum/folic/d 09:26: [facility] 35 Medical (-1 Branch ORAL) 2021-02 Yes Take by Univer s 25/iron 0-13 mouth. ity of fum/folic/d 09:26: [facility] 35 Medical (-1 Branch ORAL) 2021-02 Yes Take by Univer s 25/iron 0-13 mouth. ity of fum/folic/d 09:26: [facility] 35 Medical (-1 Branch ORAL) 2021-02 Yes Take by Univer s 25/iron 0-13 mouth. ity of fum/folic/d 09:26: [facility] 35 Medical (-1 Branch ORAL) 2021-02 Yes Take by Univer s 25/iron 0-13 mouth. ity of fum/folic/d 09:26: [place] [id number] Medical (-1 Branch ORAL) 2021-02 Yes Take by Univer s 25/iron 0-13 mouth. ity of fum/folic/d 09:26: [facility] 35 Medical (-1 Branch ORAL) 2021-02 Yes Take by Univer s 25/iron 0-13 mouth. ity of fum/folic/d 09:26: [facility] 35 Medical (-1 Branch ORAL) 2021-02 Yes Take by Univer s 25/iron 0-13 mouth. ity of fum/folic/d 09:26: [facility] 35 Medical (-1 Branch ORAL) 2021-02 Yes Take by Univer s 25/iron 0-13 mouth. ity of fum/folic/d 09:26: [facility] 35 Medical (-1 Branch ORAL) 2021-02 Yes Take by Univer s 25/iron 0-13 mouth. ity of fum/folic/d 09:26: [facility] 35 Medical (-1 Branch ORAL) 2021-02 Yes Take by Univer s 25/iron 0-13 mouth. ity of fum/folic/d 09:26: [facility] 35 Medical (-1 Branch ORAL) 2021-02 Yes Take by Univer s 25/iron 0-13 mouth. ity of fum/folic/d 09:26: [facility] 35 Medical (-1 Branch ORAL) 2021-02 Yes Take by Univer s 25/iron 0-13 mouth. ity of fum/folic/d 09:26: [place] [id number] Medical (-1 Branch ORAL) 2021-02 Yes Take by Univer s 25/iron 0-13 mouth. ity of fum/folic/d 09:26: [facility] 35 Medical (-1 Branch ORAL) 2021-02 Yes Take by Univer s 25/iron 0-13 mouth. ity of fum/folic/d 09:26: [place] [address] Medical (-1 Branch ORAL) 2021-02 Yes Take by Univer s 25/iron 0-13 mouth. ity of fum/folic/d 09:26: [place] [address] Medical (-1 Branch ORAL) 2021-02 Yes Take by Univer s 25/iron 0-13 mouth. ity of fum/folic/d 09:26: [place] [address] Medical (-1 Branch ORAL) 2021-02 Yes Take by Univer s 25/iron 0-13 mouth. ity of fum/folic/d 09:26: [place] [address] Medical (-1 Branch ORAL) 2021-02 Yes Take by Univer s 25/iron 0-13 mouth. ity of fum/folic/d 09:26: [place] [id number] Medical (-1 Branch ORAL) 2021-02 Yes Take by Univer s 25/iron 0-13 mouth. ity of fum/folic/d 09:26: [facility] 35 Medical (-1 Branch ORAL) 2021-02 Yes Take by Univer s 25/iron 0-13 mouth. ity of fum/folic/d 09:26: [facility] 35 Medical (-1 Branch ORAL) 2021-02 Yes Take by Univer s 25/iron 0-13 mouth. ity of fum/folic/d 09:26: [facility] 35 Medical (-1 Branch [...] 0-13 mouth. ity of fum/folic/d 09:26: [facility] Medical (-1 Branch ORAL) 2021-02 Yes Take by Univer s 25/iron 0-13 mouth. ity of fum/folic/d 09:26: [facility] Medical (-1 Branch ORAL) 2021-02 Yes Take by Univer s 25/iron 0-13 mouth. ity of fum/folic/d 09:26: [facility] Medical (-1 Branch ORAL) 2021-02 Yes Take by Univer s 25/iron 0-13 mouth. ity of fum/folic/d 09:26: [facility] Medical (-1 Branch ORAL) PROAIR HFA Yes [...] mcg/actuati 00:00: [place] on inhaler [facility] Branch [facility] Yes Univers 90 8-30 ity of mcg/actuati 00:00: [place] on inhaler Medical Branch PROAIR HFA Yes Univers 90 8-30 ity of mcg/actuati 00:00: [place] on inhaler Medical Branch PROAIR HFA Yes Univers 90 8-30 ity of mcg/actuati 00:00: [place] on inhaler Medical Branch PROAIR HFA Yes Univers 90 8-30 ity of mcg/actuati 00:00: [place] on inhaler Medical Branch [facility] HFA Yes Univers 90 8-30 ity of mcg/actuati 00:00: [place] on inhaler Medical Branch PROAIR HFA Yes Univers 90 8-30 ity of mcg/actuati 00:00: [place] on inhaler 00 Medical Branch [facility] Yes Univers 90 8-30 ity of mcg/actuati 00:00: [place] on inhaler Medical Branch PROAIR HFA Yes Univers 90 8-30 ity of mcg/actuati 00:00: [place] on inhaler 00 Medical Branch [facility] HFA Yes Univers 90 8-30 ity of mcg/actuati 00:00: [place] on inhaler 00 Medical Branch PROAIR HFA Yes Univers 90 8-30 ity of mcg/actuati 00:00: [place] on inhaler 00 Medical [place] PROAIR HFA 0 3- No Univer s 90 8-30 05-27 ity of mcg/actuati 00:00: 00:00 [place] on inhaler 00 :00 Medical Branch norgestimat 0 Yes [id number]{tbl} Take 1 Univers e-ethinyl 8-16 tablet by ity o f estradioL 00:00[place]TRI-SPRINT 00 the Medical ) morning. Branch 0.18/0.215/ 0.25 mg-35 mcg (28) tablet norgestimat 2021- No [id number] 1{tbl} Take 1 Univers e-ethinyl 8-16 10-13 tablet by ity of estradioL 00:00: 00:00 mouth in [place] (TRI-SPRINT 00 :00 the Medical [facility]) morning. Branch 0.18/0.215/ 0.25 mg-35 mcg (28) tablet norgestimat 2020-02 Yes [id number] 1{tbl} Take 1 Univers e-ethinyl 1-22 tablet by ity o f estradioL 00:00: mouth [place] (ORTHO 00 daily. [facility] 0.18/0.215/ 0.25 mg-35 mcg (28) tablet norgestimat 2020-02- No [id number] 1{tbl} Take 1 Univers e-ethinyl 1-22 10-13 tablet by ity of estradioL 00:00: 00:00 mouth [place] (ORTHO 00 :00 daily. [facility] 0.18/0.215/ 0.25 mg-35 mcg (28) tablet norgestimat 2020-02- No [id number] 1{tbl} Take 1 Univers e-ethinyl 1-22 10-13 tablet by ity of estradioL 00:00: 00:00 mouth [place] (ORTHO 00 :00 [facility] 0.18/0.215/ 0.25 mg-35 mcg (28) tablet Immunizations Ordered Immunization Filled Date Status Comments Sour ce Name Immunization Name [facility] 2022-05-26 Completed University of 00:00:00 [facility] TDAP 2022-05-26 Completed University of 00:00:00 [facility] TDAP 2022-05-26 Completed University of 00:00:00 [facility] TDAP 2022-05-26 Completed University of 00:00:00 [facility] TDAP 2022-05-26 Completed University of 00:00:00 [facility] TDAP 2022-05-26 Completed University of 00:00:00 [facility] TDAP 2022-05-26 Completed University of 00:00:00 [facility] TDAP 2022-05-26 Completed University of 00:00:00 [place] [facility] TDAP 2022-05-26 Completed University of 00:00:00 [place] [facility] TDAP 2022-05-26 Completed University of 00:00:00 [place] [facility] TDAP 2022-05-26 Completed University of 00:00:00 [facility] Branch TDAP 2022-05-26 Completed University of 00:00:00 [facility] Branch TDAP 2022-05-26 Completed University of 00:00:00 [place] [facility] TDAP 2022-05-26 Completed University of 00:00:00 [place] [facility] TDAP 2022-05-26 Completed University of 00:00:00 [facility] Branch TDAP 2022-05-26 Completed University of 00:00:00 [place] [facility] TDAP 2022-05-26 Completed University of 00:00:00 [facility] TDAP 2022-05-26 Completed University of 00:00:00 [facility] Branch TDAP 2022-05-26 Completed University of 00:00:00 [facility] Branch TDAP 2022-05-26 Completed University of 00:00:00 [facility] Branch TDAP 2022-05-26 Completed University of 00:00:00 [facility] Branch TDAP 2022-05-26 Completed University of 00:00:00 [facility] Branch TDAP 2022-05-26 Completed University of 00:00:00 [facility] Branch TDAP 2022-05-26 Completed University of 00:00:00 [facility] TDAP 2022-05-26 Completed University of 00:00:00 [facility] Branch TDAP 2022-05-26 Completed University of 00:00:00 [facility] TDAP 2020-06-09 Completed University of 00:00:00 [facility] Branch TDAP 2020-06-09 Completed University of 00:00:00 [place] [facility] TDAP 2020-06-09 Completed University of 00:00:00 [place] [facility] TDAP 2020-06-09 Completed University of 00:00:00 [place] [facility] TDAP 2020-06-09 Completed University of 00:00:00 [facility] TDAP 2020-06-09 Completed University of 00:00:00 [facility] Branch TDAP 2020-06-09 Completed University of 00:00:00 [facility] TDAP 2020-06-09 Completed University of 00:00:00 [place] [...] Branch TDAP 2020-06-09 Completed University of 00:00:00 [facility] Branch TDAP 2020-06-09 Completed University of 00:00:00 [...] Branch TDAP 2020-06-09 Completed University of 00:00:00 [facility] TDAP 2020-06-09 Completed University of 00:00:00 [place] [facility] [place] TDAP 2020-06-09 Completed University of 00:00:00 [facility] [...] y of Vaccine Quad .5 mL 00:00:00 [place] [facility] 6+ MO Branch Influenza Virus 2020-01-21 Completed Universit y of Vaccine Quad .5 mL 00:00:00 [place] [facility] IM 6+ MO Branch Influenza Virus 2020-01-21 Completed Universit y of Vaccine Quad .5 mL 00:00:00 [place] [facility] 6+ MO Branch Meningococcal 2018-10-18 Completed [...] OMV 2018-10-18 Completed Univ ersity of 00:00:00 [facility] Branch Meningococcal 2018-10-18 Completed University [...] Meningococcal 2018-10-18 Completed University of Vaccine 00:00:00 [facility] Branch TDAP 2018-10-18 Completed University of 00:00:00 [facility] Branch Meningococcal B, OMV 2018-10-18 Completed Univ ersity of 00:00:00 [place] [facility] Meningococcal 2018-10-18 Completed University of Vaccine 00:00:00 [facility] TDAP 2018-10-18 Completed University of 00:00:00 [facility] Branch Meningococcal B, OMV 2018-10-18 Completed Univ ersity of 00:00:00 [facility] Branch Meningococcal 2018-10-18 Completed University [...] OMV 2018-10-18 Completed Univ ersity of 00:00:00 [facility] Branch Meningococcal 2018-10-18 Completed University of Vaccine 00:00:00 [facility] TDAP 2018-10-18 Completed University of 00:00:00 [facility] Branch Meningococcal B, OMV 2018-10-18 Completed Univ ersity of 00:00:00 [facility] Branch Meningococcal 2018-10-18 Completed University of Vaccine 00:00:00 [facility] Branch TDAP 2018-10-18 Completed University of 00:00:00 [facility] Meningococcal B, OMV 2018-10-18 Completed Univ ersity of 00:00:00 [facility] Branch Meningococcal 2018-10-18 Completed University of Vaccine 00:00:00 [facility] TDAP 2018-10-18 Completed University of 00:00:00 [facility] Meningococcal B, OMV 2018-10-18 Completed Univ ersity of 00:00:00 [place] [facility] Meningococcal 2018-10-18 Completed University of Vaccine 00:00:00 [facility] Branch TDAP 2018-10-18 Completed University of 00:00:00 [facility] Meningococcal B, OMV 2018-10-18 Completed Univ ersity of 00:00:00 [facility] Branch Meningococcal 2018-10-18 Completed University of Vaccine 00:00:00 [facility] Branch TDAP 2018-10-18 Completed University [...] OMV 2018-10-18 Completed Univ ersity of 00:00:00 [facility] Branch Meningococcal 2018-10-18 Completed University [...] OMV 2018-10-18 Completed Univ ersity of 00:00:00 [facility] Branch Meningococcal 2018-10-18 Completed University of Vaccine 00:00:00 [place] [facility] TDAP 2018-10-18 Completed University of 00:00:00 [facility] Branch Meningococcal B, OMV 2018-10-18 Completed Univ ersity of 00:00:00 [place] [facility] Meningococcal 2018-10-18 Completed University of Vaccine 00:00:00 [place] [facility] TDAP 2018-10-18 Completed University of 00:00:00 [facility] Branch Meningococcal B, OMV 2018-10-18 Completed Univ ersity of 00:00:00 [place] [facility] Meningococcal 2018-10-18 Completed University of Vaccine 00:00:00 [place] [facility] TDAP 2018-10-18 Completed University of 00:00:00 [facility] Branch Meningococcal B, OMV 2018-10-18 Completed Univ ersity of 00:00:00 [place] [facility] Meningococcal 2018-10-18 Completed University of Vaccine 00:00:00 [place] [facility] TDAP 2018-10-18 Completed University of 00:00:00 [facility] Branch Meningococcal B, OMV 2018-10-18 Completed Univ ersity of 00:00:00 [place] [facility] Meningococcal 2018-10-18 Completed University of Vaccine 00:00:00 [facility] Branch TDAP 2018-10-18 Completed University of 00:00:00 [facility] Branch Meningococcal B, OMV 2018-10-18 Completed Univ ersity of 00:00:00 [facility] Branch Meningococcal 2018-10-18 Completed University of Vaccine 00:00:00 [facility] Branch TDAP 2018-10-18 Completed University of 00:00:00 [facility] Meningococcal B, OMV 2018-10-18 Completed Univ ersity of 00:00:00 [facility] Branch Meningococcal 2018-10-18 Completed University of Vaccine 00:00:00 [place] [facility] TDAP 2018-10-18 Completed University of 00:00:00 [facility] Branch Meningococcal B, OMV 2018-10-18 Completed Univ ersity of 00:00:00 [place] [facility] Meningococcal 2018-10-18 Completed University of Vaccine 00:00:00 [place] [facility] TDAP 2018-10-18 Completed University of 00:00:00 [facility] Branch Meningococcal B, OMV 2018-10-18 Completed Univ ersity of 00:00:00 [place] [facility] Meningococcal 2018-10-18 Completed University of Vaccine 00:00:00 [place] [facility] TDAP 2018-10-18 Completed University of 00:00:00 [facility] Branch Meningococcal B, OMV 2018-10-18 Completed Univ ersity of 00:00:00 [facility] Branch Meningococcal 2018-10-18 Completed University of Vaccine 00:00:00 [facility] Branch TDAP 2018-10-18 Completed University of 00:00:00 [facility] Branch Meningococcal B, OMV 2018-10-18 Completed Univ ersity of 00:00:00 [facility] Branch Meningococcal 2018-10-18 Completed University of Vaccine 00:00:00 [facility] Branch TDAP 2018-10-18 Completed University of 00:00:00 [facility] Branch Meningococcal B, OMV 2018-10-18 Completed Univ ersity of 00:00:00 [facility] Branch Meningococcal 2018-10-18 Completed University of Vaccine 00:00:00 [facility] Branch TDAP 2018-10-18 Completed University of 00:00:00 [facility] Meningococcal B, OMV 2018-10-18 Completed Univ ersity of 00:00:00 [facility] Meningococcal 2018-10-18 Completed University of Polysaccharide 00:00:00 [place] [facility] (groups A, C, Y and Branc h W-135) conjugate vaccine (MCV4P) Meningococcal 2018-10-18 Completed University of Vaccine 00:00:00 [facility] TDAP 2018-10-18 Completed University of 00:00:00 [facility] Meningococcal B, OMV 2018-10-18 Completed Univ ersity of 00:00:00 [facility] Meningococcal 2018-10-18 Completed University of Polysaccharide 00:00:00 [place] [facility] (groups A, C, Y and Branc h W-135) conjugate vaccine (MCV4P) Meningococcal 2018-10-18 Completed University of Vaccine 00:00:00 [facility] TDAP 2018-10-18 Completed University of 00:00:00 [facility] Meningococcal B, OMV 2018-10-18 Completed Univ ersity of 00:00:00 [facility] Meningococcal 2018-10-18 Completed University of Polysaccharide 00:00:00 [place] [facility] (groups A, C, Y and Branc h W-135) conjugate vaccine (MCV4P) Meningococcal 2018-10-18 Completed University of Vaccine 00:00:00 [facility] TDAP 2018-10-18 Completed University of 00:00:00 [facility] Branch Meningococcal B, OMV 2018-10-18 Completed Univ ersity of 00:00:00 [facility] Meningococcal 2018-10-18 Completed University of Polysaccharide 00:00:00 [place] [facility] (groups A, C, Y and Branc h W-135) conjugate vaccine (MCV4P) Meningococcal 2018-10-18 Completed University of Vaccine 00:00:00 [facility] TDAP 2018-10-18 Completed University of 00:00:00 [facility] Meningococcal B, OMV 2018-10-18 Completed Univ ersity of 00:00:00 [facility] Branch Meningococcal 2018-10-18 Completed University of Polysaccharide [...] And Clinics Meningococcal 2018-10-18 Completed University of Polysaccharide 00:00:00 [place] [facility] (groups A, C, Y and Branc h W-135) conjugate vaccine (MCV4P) Meningococcal 2018-10-18 Completed University of Vaccine 00:00:00 [facility] TDAP 2018-10-18 Completed University of 00:00:00 [facility] Meningococcal B, OMV 2018-10-18 Completed Univ ersity of 00:00:00 [facility] Meningococcal 2018-10-18 Completed University of Polysaccharide 00:00:00 [place] [facility] (groups A, C, Y and Branc h W-135) conjugate vaccine (MCV4P) Meningococcal 2018-10-18 Completed University of Vaccine 00:00:00 [facility] TDAP 2018-10-18 Completed University of 00:00:00 [facility] Meningococcal B, OMV 2018-10-18 Completed Univ ersity of 00:00:00 [facility] Meningococcal 2018-10-18 Completed University of Polysaccharide 00:00:00 [place] [facility] (groups A, C, Y and Branc h W-135) conjugate vaccine (MCV4P) Meningococcal 2018-10-18 Completed University of Vaccine 00:00:00 [facility] TDAP 2018-10-18 Completed University of 00:00:00 [facility] Meningococcal B, OMV 2018-10-18 Completed Univ ersity of 00:00:00 [facility] Meningococcal 2018-10-18 Completed University of Polysaccharide 00:00:00 [place] [facility] (groups A, C, Y and Branc h W-135) conjugate vaccine (MCV4P) Meningococcal 2018-10-18 Completed University of Vaccine 00:00:00 [facility] TDAP 2018-10-18 Completed University of 00:00:00 [facility] Meningococcal B, OMV 2018-10-18 Completed Univ ersity of 00:00:00 [facility] Branch Meningococcal 2018-10-18 Completed University of Polysaccharide [...] And Clinics Meningococcal 2018-10-18 Completed University of Polysaccharide 00:00:00 [place] [facility] (groups A, C, Y and Branc h W-135) conjugate vaccine (MCV4P) Meningococcal 2018-10-18 Completed University of Vaccine 00:00:00 [facility] TDAP 2018-10-18 Completed University of 00:00:00 [facility] Meningococcal B, OMV 2018-10-18 Completed Univ ersity of 00:00:00 [facility] Meningococcal 2018-10-18 Completed University of Polysaccharide 00:00:00 [place] [facility] (groups A, C, Y and Branc h W-135) conjugate vaccine (MCV4P) Meningococcal 2018-10-18 Completed University of Vaccine 00:00:00 [facility] TDAP 2018-10-18 Completed University of 00:00:00 [facility] Meningococcal B, OMV 2018-10-18 Completed Univ ersity of 00:00:00 [facility] Branch Meningococcal 2018-10-18 Completed University of Polysaccharide 00:00:00 [place] [facility] (groups A, C, Y and Branc h W-135) conjugate vaccine (MCV4P) Meningococcal 2018-10-18 Completed University of Vaccine 00:00:00 [facility] TDAP 2018-10-18 Completed University of 00:00:00 [facility] Meningococcal B, OMV 2018-10-18 Completed Univ ersity of 00:00:00 [facility] Branch Meningococcal 2018-10-18 Completed University of Polysaccharide 00:00:00 [place] [facility] (groups A, C, Y and Branc h W-135) conjugate vaccine (MCV4P) Meningococcal 2018-10-18 Completed University of Vaccine 00:00:00 [facility] TDAP 2018-10-18 Completed University of 00:00:00 [facility] Branch Meningococcal B, OMV 2018-10-18 Completed Univ ersity of 00:00:00 [facility] Branch Meningococcal 2018-10-18 Completed University of Polysaccharide 00:00:00 [place] [facility] (groups A, C, Y and Branc h W-135) conjugate vaccine (MCV4P) Meningococcal 2018-10-18 Completed University of Vaccine 00:00:00 [facility] TDAP 2018-10-18 Completed University of 00:00:00 [facility] Meningococcal B, OMV 2018-10-18 Completed Univ ersity of 00:00:00 [facility] Branch Meningococcal 2018-10-18 Completed University of Polysaccharide [...] And Clinics Meningococcal 2018-10-18 Completed University of Polysaccharide 00:00:00 [place] [facility] (groups A, C, Y and Branc h W-135) conjugate vaccine (MCV4P) Meningococcal 2018-10-18 Completed University of Vaccine 00:00:00 [facility] TDAP 2018-10-18 Completed University of 00:00:00 [facility] Branch Meningococcal B, OMV 2018-10-18 Completed Univ ersity of 00:00:00 [facility] Branch Meningococcal 2018-10-18 Completed University of Polysaccharide 00:00:00 [place] [facility] (groups A, C, Y and Branc h W-135) conjugate vaccine (MCV4P) Meningococcal 2018-10-18 Completed University of Vaccine 00:00:00 [facility] Branch TDAP 2018-10-18 Completed University of 00:00:00 [facility] Branch Meningococcal B, OMV 2018-10-18 Completed Univ ersity of 00:00:00 [facility] Branch Meningococcal 2018-10-18 Completed University of Polysaccharide 00:00:00 [place] [facility] (groups A, C, Y and Branc h W-135) conjugate vaccine (MCV4P) Meningococcal 2018-10-18 Completed University of Vaccine 00:00:00 [facility] Branch TDAP 2018-10-18 Completed University of 00:00:00 [facility] Branch Meningococcal B, OMV 2018-10-18 Completed Univ ersity of 00:00:00 [facility] Branch Meningococcal 2018-10-18 Completed University of Polysaccharide 00:00:00 [place] [facility] (groups A, C, Y and Branc h W-135) conjugate vaccine (MCV4P) Meningococcal 2018-10-18 Completed University of Vaccine 00:00:00 [facility] TDAP 2018-10-18 Completed University of 00:00:00 [facility] Meningococcal B, OMV 2018-10-18 Completed Univ ersity of 00:00:00 [facility] Branch Meningococcal 2018-10-18 Completed University of Polysaccharide 00:00:00 [place] [facility] (groups A, C, Y and Branc h W-135) conjugate vaccine (MCV4P) Meningococcal 2018-10-18 Completed University of Vaccine 00:00:00 [facility] TDAP 2018-10-18 Completed University of 00:00:00 [facility] Meningococcal B, OMV 2018-10-18 Completed Univ ersity of 00:00:00 [facility] Branch Meningococcal 2018-10-18 Completed University of Polysaccharide 00:00:00 [place] [facility] (groups A, C, Y and Branc h W-135) conjugate vaccine (MCV4P) Meningococcal 2018-10-18 Completed University of Vaccine 00:00:00 [facility] TDAP 2018-10-18 Completed University of 00:00:00 [facility] Branch Meningococcal B, OMV 2018-10-18 Completed Univ ersity of 00:00:00 [facility] Branch Meningococcal 2018-10-18 Completed University of Polysaccharide 00:00:00 [place] [facility] (groups A, C, Y and Branc h W-135) conjugate vaccine (MCV4P) Meningococcal 2018-10-18 Completed University of Vaccine 00:00:00 [facility] Branch TDAP 2018-10-18 Completed University of 00:00:00 [facility] Meningococcal B, OMV 2018-10-18 Completed Univ ersity of 00:00:00 [facility] Meningococcal 2018-10-18 Completed University of Polysaccharide 00:00:00 [place] [facility] (groups A, C, Y and Branc h W-135) conjugate vaccine (MCV4P) Meningococcal 2018-10-18 Completed University of Vaccine 00:00:00 [facility] TDAP 2018-10-18 Completed University of 00:00:00 [facility] Meningococcal B, OMV 2018-10-18 Completed Univ ersity of 00:00:00 [facility] Meningococcal 2018-10-18 Completed University of Polysaccharide 00:00:00 [place] [facility] (groups A, C, Y and Branc h W-135) conjugate vaccine (MCV4P) Meningococcal 2018-10-18 Completed University of Vaccine 00:00:00 [facility] TDAP 2018-10-18 Completed University of 00:00:00 [facility] Meningococcal B, OMV 2018-10-18 Completed Univ ersity of 00:00:00 [facility] Meningococcal 2018-10-18 Completed University of Polysaccharide 00:00:00 [place] [facility] (groups A, C, Y and Branc h W-135) conjugate vaccine (MCV4P) DTAP 2006-10-25 Completed University of 00:00:00 [facility] [...] Branch DTAP 2006-10-25 Completed University of 00:00:00 [facility] Branch Hepatitis A Adult 2006-10-25 Completed Univers ity of 00:00:00 [place] [facility] Polio (IPV/OPV) 2006-10-25 Completed Universit y of 00:00:00 [facility] Branch DTAP 2006-10-25 Completed University of 00:00:00 [facility] Hepatitis A Adult 2006-10-25 Completed Univers ity of 00:00:00 [facility] Branch Polio (IPV/OPV) 2006-10-25 Completed Universit y of 00:00:00 [place] [facility] DTAP 2006-10-25 Completed University of 00:00:00 [place] [facility] Hepatitis A Adult 2006-10-25 Completed Univers ity of 00:00:00 [place] [facility] Polio (IPV/OPV) 2006-10-25 Completed Universit y of 00:00:00 [facility] [facility] DTAP 2006-10-25 Completed [facility] 00[facility]00:00 [facility] Hepatitis A Adult 2006-10-25 Completed [facility] 00:00:00 [facility] Polio (IPV/OPV) 2006-10-25 Completed [facility] 00:00:00 [facility] DTAP 2006-10-25 Completed [facility] 00:00:00 [facility] Hepatitis A Adult 2006-10-25 Completed [facility] 00:00:00 [facility] Polio (IPV/OPV) 2006-10-25 Completed [facility] 00:00:00 [facility] DTAP 2006-10-25 Completed [facility] 00:00:00 [facility] Hepatitis A Adult 2006-10-25 Completed [facility] 00:00:00 [facility] Polio (IPV/OPV) 2006-10-25 Completed [facility] 00:00:00 [facility] DTAP 2006-10-25 Completed [facility] 00:00:00 [facility] Hepatitis A Adult 2006-10-25 Completed [facility] 00:00:00 [facility] Polio (IPV/OPV) 2006-10-25 Completed [facility] 00:00:00 [facility] DTAP 2006-10-25 Completed [facility] 00:00:00 [facility] Hepatitis A Adult 2006-10-25 Completed [facility] 00:00:00 [facility] Polio (IPV/OPV) 2006-10-25 Completed [facility] 00:00:00 [facility] DTAP 2006-10-25 Completed [facility] 00:00:00 [facility] Hepatitis A Adult 2006-10-25 Completed [facility] 00:00:00 [facility] Polio (IPV/OPV) 2006-10-25 Completed Universit y [...] Adult 2006-10-25 Completed [facility] 00:00:00 [facility] Polio (IPV/OPV) 2006-10-25 Completed [facility] 00:00:00 [facility] DTAP 2006-10-25 Completed [facility] 00:00:00 [facility] Hepatitis A Adult 2006-10-25 Completed [facility] 00:00:00 [facility] Polio (IPV/OPV) 2006-10-25 Completed [facility] 00:00:00 [facility] DTAP 2006-10-25 Completed [facility] 00:00:00 [facility] Hepatitis A Adult 2006-10-25 Completed [facility] 00:00:00 [facility] Polio (IPV/OPV) 2006-10-25 Completed [facility] 00:00:00 [facility] DTAP 2006-10-25 Completed [facility] 00:00:00 [facility] Hepatitis A Adult 2006-10-25 Completed [facility] 00:00:00 [facility] Polio (IPV/OPV) 2006-10-25 Completed Universit y [...] Branch DTAP 2006-10-25 Completed [facility] 00:00:00 [facility] Hepatitis A Adult 2006-10-25 Completed [facility] 00:00:00 [facility] Polio (IPV/OPV) 2006-10-25 Completed [facility] 00:00:00 [facility] DTAP 2006-10-25 Completed [facility] 00:00:00 [facility] Hepatitis A Adult 2006-10-25 Completed [facility] 00:00:00 [facility] Polio (IPV/OPV) 2006-10-25 Completed [facility] 00:00:00 [facility] DTAP 2006-10-25 Completed [facility] 00:00:00 [facility] Hepatitis A Adult 2006-10-25 [...] Branch DTAP 2006-10-25 Completed [facility] 00:00:00 [facility] Hepatitis A Adult 2006-10-25 Completed [facility] 00:00:00 [facility] Polio (IPV/OPV) 2006-10-25 Completed [facility] 00:00:00 [facility] DTAP 2006-10-25 Completed [facility] 00:00:00 [facility] Hepatitis A Adult 2006-10-25 Completed [facility] 00:00:00 [facility] Polio (IPV/OPV) 2006-10-25 Completed [facility] 00:00:00 [facility] DTAP 2006-10-25 Completed [facility] 00:00:00 [facility] Hepatitis A Adult 2006-10-25 Completed [facility] 00:00:00 [facility] Polio (IPV/OPV) 2006-10-25 Completed [facility] 00:00:00 [facility] DTAP 2006-10-25 Completed [facility] 00:00:00 [facility] [...] of 00:00:00 [facility] DTaP, Unspecified 2006-10-25 Completed [facility] ity of Formulation 00:00:00 [facility] HEPA,NOS 2006-10-25 Completed [facility] 00:00:00 [facility] IPV 2006-10-25 Completed [facility] 00:00:00 [facility] DTAP 2006-10-25 Completed [facility] 00:00:00 [facility] Hepatitis A Adult 2006-10-25 Completed [facility] 00:00:00 [facility] Polio (IPV/OPV) 2006-10-25 Completed [facility] 00:00:00 [facility] DTaP, Unspecified 2006-10-25 Completed [facility] of Formulation 00:00:00 [facility] HEPA,NOS 2006-10-25 Completed [facility] 00:00:00 [facility] IPV 2006-10-25 Completed [facility] 00:00:00 [facility] DTAP 2006-10-25 Completed [facility] 00:00:00 [facility] Hepatitis A Adult 2006-10-25 Completed [facility] 00:00:00 [facility] Polio (IPV/OPV) 2006-10-25 Completed [facility] 00:00:00 [facility] DTaP, Unspecified 2006-10-25 Completed [facility] Formulation 00:00:00 [facility] HEPA,NOS 2006-10-25 Completed [facility] 00:00:00 [facility] IPV 2006-10-25 Completed [facility] 00:00:00 [facility] DTAP 2006-10-25 Completed [facility] 00:00:00 [facility] Hepatitis A Adult 2006-10-25 Completed [facility] 00:00:00 [facility] Polio (IPV/OPV) 2006-10-25 Completed [facility] 00:00:00 [facility] DTaP, Unspecified 2006-10-25 Completed [facility] Formulation 00:00:00 [facility] HEPA,NOS 2006-10-25 Completed [facility] 00:00:00 [facility] IPV 2006-10-25 Completed [facility] 00:00:00 [facility] DTAP 2006-10-25 Completed [facility] 00:00:00 [facility] Hepatitis A Adult 2006-10-25 Completed [facility] 00:00:00 [facility] Polio (IPV/OPV) 2006-10-25 Completed [facility] 00:00:00 [facility] DTaP, Unspecified 2006-10-25 Completed [facility] Formulation 00:00:00 [facility] HEPA,NOS 2006-10-25 Completed [facility] 00:00:00 [facility] IPV 2006-10-25 Completed [facility] 00:00:00 [facility] DTAP 2006-10-25 Completed [facility] 00:00:00 [facility] Hepatitis A Adult 2006-10-25 Completed [facility] 00:00:00 [facility] Polio (IPV/OPV) 2006-10-25 Completed [facility] 00:00:00 [facility] DTaP, Unspecified 2006-10-25 Completed [facility] Formulation 00:00:00 [facility] HEPA,NOS 2006-10-25 Completed [facility] 00:00:00 [facility] IPV 2006-10-25 Completed [facility] 00:00:00 [facility] DTAP 2006-10-25 Completed [facility] 00:00:00 [facility] Hepatitis A Adult 2006-10-25 Completed [facility] 00:00:00 [facility] Polio (IPV/OPV) 2006-10-25 Completed [facility] 00:00:00 [facility] DTaP, Unspecified 2006-10-25 Completed [facility] Formulation 00:00:00 [facility] HEPA,NOS 2006-10-25 Completed [facility] 00:00:00 [facility] IPV 2006-10-25 Completed [facility] 00:00:00 [facility] DTAP 2006-10-25 Completed [facility] 00:00:00 [facility] Hepatitis A Adult 2006-10-25 Completed [facility] 00:00:00 [facility] Polio (IPV/OPV) 2006-10-25 Completed [facility] 00:00:00 [facility] DTaP, Unspecified 2006-10-25 Completed [facility] Formulation 00:00:00 [facility] HEPA,NOS 2006-10-25 Completed [facility] 00:00:00 [facility] IPV 2006-10-25 Completed [facility] 00:00:00 [facility] DTAP 2006-10-25 Completed [facility] 00:00:00 [facility] Hepatitis A Adult 2006-10-25 Completed [facility] 00:00:00 [facility] Polio (IPV/OPV) 2006-10-25 Completed [facility] 00:00:00 [facility] DTaP, Unspecified 2006-10-25 Completed [facility] Formulation 00:00:00 [facility] HEPA,NOS 2006-10-25 Completed [facility] 00:00:00 [facility] IPV 2006-10-25 Completed [facility] 00:00:00 [facility] DTAP 2006-10-25 Completed [facility] 00:00:00 [facility] Hepatitis A Adult 2006-10-25 Completed [facility] 00:00:00 [facility] Polio (IPV/OPV) 2006-10-25 Completed [facility] 00:00:00 [facility] DTaP, Unspecified 2006-10-25 Completed [facility] Formulation 00:00:00 [facility] HEPA,NOS 2006-10-25 Completed [facility] 00:00:00 [facility] IPV 2006-10-25 Completed [facility] 00:00:00 [facility] DTAP 2006-10-25 Completed [facility] 00:00:00 [facility] Hepatitis A Adult 2006-10-25 Completed [facility] 00:00:00 [facility] Polio (IPV/OPV) 2006-10-25 Completed [facility] 00:00:00 [facility] DTaP, Unspecified 2006-10-25 Completed [facility] Formulation 00:00:00 [facility] HEPA,NOS 2006-10-25 Completed [facility] 00:00:00 [facility] IPV 2006-10-25 Completed [facility] 00:00:00 [facility] DTAP 2006-10-25 Completed [facility] 00:00:00 [facility] Hepatitis A Adult 2006-10-25 Completed [facility] 00:00:00 [facility] Polio (IPV/OPV) 2006-10-25 Completed [facility] 00:00:00 [facility] DTaP, Unspecified 2006-10-25 Completed [facility] Formulation 00:00:00 [facility] HEPA,NOS 2006-10-25 Completed [facility] 00:00:00 [facility] IPV 2006-10-25 Completed [facility] 00:00:00 [facility] DTAP 2006-10-25 Completed [facility] 00:00:00 [facility] Hepatitis A Adult 2006-10-25 Completed [facility] 00:00:00 [facility] Polio (IPV/OPV) 2006-10-25 Completed [facility] 00:00:00 [facility] DTaP, Unspecified 2006-10-25 Completed [facility] Formulation 00:00:00 [facility] HEPA,NOS 2006-10-25 Completed [facility] 00:00:00 [facility] IPV 2006-10-25 Completed [facility] 00:00:00 [facility] DTAP 2006-10-25 Completed [facility] 00:00:00 [facility] Hepatitis A Adult 2006-10-25 Completed [facility] 00:00:00 [facility] Polio (IPV/OPV) 2006-10-25 Completed [facility] 00:00:00 [facility] DTaP, Unspecified 2006-10-25 Completed [facility] Formulation 00:00:00 [facility] HEPA,NOS 2006-10-25 Completed [facility] 00:00:00 [facility] IPV 2006-10-25 Completed [facility] 00:00:00 [facility] DTAP 2006-10-25 Completed [facility] 00:00:00 [facility] Hepatitis A Adult 2006-10-25 Completed [facility] 00:00:00 [facility] Polio (IPV/OPV) 2006-10-25 Completed [facility] 00:00:00 [facility] DTaP, Unspecified 2006-10-25 Completed [facility] Formulation 00:00:00 [facility] HEPA,NOS 2006-10-25 Completed [facility] 00:00:00 [facility] IPV 2006-10-25 Completed [facility] of 00:00:00 [facility] DTAP 2006-10-25 Completed [facility] 00:00:00 [facility] Hepatitis A Adult 2006-10-25 Completed [facility] 00:00:00 [facility] Polio (IPV/OPV) 2006-10-25 Completed [facility] 00:00:00 [facility] DTaP, Unspecified 2006-10-25 Completed [facility] Formulation 00:00:00 [facility] HEPA,NOS 2006-10-25 Completed [facility] 00:00:00 [facility] IPV 2006-10-25 Completed [facility] of 00:00:00 [facility] DTAP 2006-10-25 Completed [facility] 00:00:00 [facility] Hepatitis A Adult 2006-10-25 Completed [facility] 00:00:00 [facility] Polio (IPV/OPV) 2006-10-25 Completed [facility] 00:00:00 [facility] DTaP, Unspecified 2006-10-25 Completed [facility] Formulation 00:00:00 [facility] HEPA,NOS 2006-10-25 Completed [facility] 00:00:00 [facility] IPV 2006-10-25 Completed [facility] of 00:00:00 [facility] DTAP 2006-10-25 Completed [facility] 00:00:00 [facility] Hepatitis A Adult 2006-10-25 Completed [facility] 00:00:00 [facility] Polio (IPV/OPV) 2006-10-25 Completed [facility] 00:00:00 [facility] DTaP, Unspecified 2006-10-25 Completed [facility] Formulation 00:00:00 [facility] HEPA,NOS 2006-10-25 Completed [facility] 00:00:00 [facility] IPV 2006-10-25 Completed [facility] of 00:00:00 [facility] DTAP 2006-10-25 Completed [facility] 00:00:00 [facility] Hepatitis A Adult 2006-10-25 Completed [facility] 00:00:00 [facility] Polio (IPV/OPV) 2006-10-25 Completed [facility] 00:00:00 [facility] DTaP, Unspecified 2006-10-25 Completed [facility] Formulation 00:00:00 [facility] HEPA,NOS 2006-10-25 Completed [facility] 00:00:00 [facility] IPV 2006-10-25 Completed [facility] of 00:00:00 [facility] DTAP 2006-10-25 Completed [facility] 00:00:00 [facility] Hepatitis A Adult 2006-10-25 Completed [facility] 00:00:00 [facility] Polio (IPV/OPV) 2006-10-25 Completed [facility] 00:00:00 [facility] DTaP, Unspecified 2006-10-25 Completed [facility] Formulation 00:00:00 [facility] HEPA,NOS 2006-10-25 Completed [facility] of 00:00:00 [facility] IPV 2006-10-25 Completed [facility] of 00:00:00 [facility] DTAP 2006-10-25 Completed [facility] 00:00:00 [facility] Hepatitis A Adult 2006-10-25 Completed [facility] 00:00:00 [facility] Polio (IPV/OPV) 2006-10-25 Completed [facility] 00:00:00 [facility] DTaP, Unspecified 2006-10-25 Completed [facility] Formulation 00:00:00 [facility] HEPA,NOS 2006-10-25 Completed [facility] 00:00:00 [facility] IPV 2006-10-25 Completed [facility] of 00:00:00 [facility] DTAP 2006-10-25 Completed [facility] 00:00:00 [facility] Hepatitis A Adult 2006-10-25 Completed [facility] 00:00:00 [facility] Polio (IPV/OPV) 2006-10-25 Completed [facility] 00:00:00 [facility] DTaP, Unspecified 2006-10-25 Completed [facility] Formulation 00:00:00 [facility] HEPA,NOS 2006-10-25 Completed [facility] of 00:00:00 [facility] IPV 2006-10-25 Completed [facility] of 00:00:00 [facility] DTAP 2006-10-25 Completed [facility] 00:00:00 [facility] Hepatitis A Adult 2006-10-25 Completed [facility] 00:00:00 [facility] Polio (IPV/OPV) 2006-10-25 Completed [facility] 00:00:00 [facility] DTaP, Unspecified 2006-10-25 Completed [facility] Formulation 00:00:00 [facility] HEPA,NOS 2006-10-25 Completed [facility] 00:00:00 [facility] IPV 2006-10-25 Completed [facility] of 00:00:00 [facility] DTAP 2006-10-25 Completed [facility] of 00:00:00 [facility] Hepatitis A Adult 2006-10-25 Completed [facility] 00:00:00 [facility] Polio (IPV/OPV) 2006-10-25 Completed [facility] 00:00:00 [facility] DTaP, Unspecified 2006-10-25 Completed [facility] Formulation 00:00:00 [facility] HEPA,NOS 2006-10-25 Completed [facility] 00:00:00 [facility] IPV 2006-10-25 Completed [facility] of 00:00:00 [facility] DTAP 2006-10-25 Completed [facility] 00:00:00 [facility] Hepatitis A Adult 2006-10-25 Completed [facility] 00:00:00 [facility] Polio (IPV/OPV) 2006-10-25 Completed [facility] 00:00:00 [facility] DTaP, Unspecified 2006-10-25 Completed [facility] Formulation 00:00:00 [facility] HEPA,NOS 2006-10-25 Completed [facility] 00:00:00 [facility] IPV 2006-10-25 Completed [facility] 00:00:00 [facility] DTAP 2006-10-25 Completed [facility] 00:00:00 [facility] Hepatitis A Adult 2006-10-25 Completed [facility] 00:00:00 [facility] Polio (IPV/OPV) 2006-10-25 Completed [facility] 00:00:00 [facility] DTaP, Unspecified 2006-10-25 Completed [facility] Formulation 00:00:00 [facility] HEPA,NOS 2006-10-25 Completed [facility] 00:00:00 [facility] IPV 2006-10-25 Completed [facility] 00:00:00 [facility] DTAP 2005-09-20 Completed [facility] 00:00:00 [place] [...] of 00:00:00 [facility] DTaP, Unspecified 2005-09-20 Completed [facility] Formulation 00:00:00 [facility] HEPATITIS A 2005-09-20 Completed [facility] of 00:00:00 [facility] HIB 4 Dose Schedule 2005-09-20 Completed Unive rsity of 00:00:00 [facility] Pneumococcal 7 2005-09-20 Completed [facility] of Conjugate, PCV7 00:00:00 [place] [facility] (Prevnar7) [facility] IPV 2005-09-20 Completed [facility] 00:00:00 [facility] [place] [facility] of Conjugate, PCV13 00:00:00 [facility] dichi (Prevnar 13) Branch Polio (IPV/OPV) 2005-09-20 Completed Universit [facility] of 00:00:00 [facility] DTaP, Unspecified 2005-09-20 Completed [facility] it[facility] of Formulation 00:00:00 [facility] HEPATITIS A 2005-09-20 Completed [facility] of 00:00:00 [facility] HIB 4 Dose Schedule 2005-09-20 Completed Unive rsity of 00:00:00 [facility] Pneumococcal 7 2005-09-20 Completed [facility] Conjugate, PCV7 00:00:00 [place] [facility] (Prevnar7) [facility] IPV 2005-09-20 Completed [facility] 00:00:00 [facility] [place] [...] of 00:00:00 [facility] DTaP, Unspecified 2005-09-20 Completed [facility] it[facility] of Formulation 00:00:00 [facility] HEPATITIS A 2005-09-20 Completed [facility] of 00:00:00 [facility] HIB 4 Dose Schedule 2005-09-20 Completed Unive rsity of 00:00:00 [facility] Pneumococcal 7 2005-09-20 Completed [facility] of Conjugate, PCV7 00:00:00 [place] [facility] (Prevnar7) [facility] IPV 2005-09-20 Completed [facility] 00:00:00 [facility] [place] [...] Completed Universit y of Conjugate, PCV13 00:00:00 [facility] (Prevnar 13) [facility] Polio (IPV/OPV) 2005-09-20 Completed [facility]it [facility] of 00:00:00 [facility] DTaP, Unspecified 2005-09-20 Completed [facility] ity of Formulation 00:00:00 [facility] HEPATITIS A 2005-09-20 Completed [facility] of 00:00:00 [facility] HIB 4 Dose Schedule 2005-09-20 Completed Unive rsity of 00:00:00 [facility] Pneumococcal 7 2005-09-20 Completed [facility] Conjugate, PCV7 00:00:00 [place] [facility] (Prevnar7) [facility] IPV 2005-09-20 Completed [facility] 00:00:00 [facility] [place] [...] of 00:00:00 [facility] DTaP, Unspecified 2005-09-20 Completed [facility] it[facility] of Formulation 00:00:00 [facility] HEPATITIS A 2005-09-20 Completed [facility] of 00:00:00 [facility] HIB 4 Dose Schedule 2005-09-20 Completed Unive rsity of 00:00:00 [facility] Pneumococcal 7 2005-09-20 Completed [facility] of Conjugate, PCV7 00:00:00 [place] [facility] (Prevnar7) [facility] IPV 2005-09-20 Completed [facility] 00:00:00 [facility] [place] [...] Completed Universit y of Conjugate, PCV13 00:00:00 [facility] (Prevnar 13) Branch Polio (IPV/OPV) 2005-09-20 Completed [facility] of 00:00:00 [facility] DTaP, Unspecified 2005-09-20 Completed [facility] ity of Formulation 00:00:00 [facility] HEPATITIS A 2005-09-20 Completed [facility] of 00:00:00 [facility] HIB 4 Dose Schedule 2005-09-20 Completed Unive rsity of 00:00:00 [facility] Pneumococcal 7 2005-09-20 Completed [facility] Conjugate, PCV7 00:00:00 [place] [facility] (Prevnar7) [facility] IPV 2005-09-20 Completed [facility] 00:00:00 [facility] [place] [...] of 00:00:00 [facility] DTaP, Unspecified 2005-09-20 Completed [facility] ity of Formulation 00:00:00 [facility] HEPATITIS A 2005-09-20 Completed [facility] of 00:00:00 [facility] HIB 4 Dose Schedule 2005-09-20 Completed Unive rsity of 00:00:00 [facility] Pneumococcal 7 2005-09-20 Completed [facility] of Conjugate, PCV7 00:00:00 [place] [facility] (Prevnar7) [facility] IPV 2005-09-20 Completed [facility] 00:00:00 [facility] [place] [...] Completed Universit y of Conjugate, PCV13 00:00:00 [facility] (Prevnar 13) [place] Polio (IPV/OPV) 2005-09-20 Completed [facility]it [facility] of 00:00:00 [facility] DTaP, Unspecified 2005-09-20 Completed [facility] ity of Formulation 00:00:00 [facility] HEPATITIS A 2005-09-20 Completed [facility] of 00:00:00 [facility] HIB 4 Dose Schedule 2005-09-20 Completed Unive rsity of 00:00:00 [facility] Pneumococcal 7 2005-09-20 Completed [facility] of Conjugate, PCV7 00:00:00 [place] [facility] (Prevnar7) [facility] IPV 2005-09-20 Completed [facility] 00:00:00 [place] [...] 00:00:00 [facility] dical (Prevnar 13) [place] Polio (IPV/OPV) 2005-09-20 Completed [facility]it [facility] 00:00:00 [facility] DTaP, Unspecified 2005-09-20 Completed Univers ity of Formulation 00:00:00 [facility] HEPATITIS A 2005-09-20 Completed [facility] of 00:00:00 [facility] HIB 4 Dose Schedule 2005-09-20 Completed Unive rsity of 00:00:00 [facility] Pneumococcal 7 2005-09-20 Completed [facility] of Conjugate, PCV7 00:00:00 [place] [facility] (Prevnar7) [facility] IPV 2005-09-20 Completed [facility] 00:00:00 [place] [...] Completed Universit y of Conjugate, PCV13 00:00:00 [facility] (Prevnar 13) [place] Polio (IPV/OPV) 2005-09-20 Completed [facility] 00:00:00 [facility] DTaP, Unspecified 2005-09-20 Completed [facility] Formulation 00:00:00 [facility] HEPATITIS A 2005-09-20 Completed [facility] of 00:00:00 [facility] HIB 4 Dose Schedule 2005-09-20 Completed Unive rsity of 00:00:00 [facility] Pneumococcal 7 2005-09-20 Completed [facility] of Conjugate, PCV7 00:00:00 [facility] (Prevnar7) [facility] IPV 2005-09-20 Completed [facility] 00:[facility]00 [facility] of 00:00:00 [facility] DTaP, Unspecified 2005-09-20 Completed [facility] Formulation 00:00:00 [facility] HEPATITIS A 2005-09-20 Completed [facility] of 00:00:00 [facility] HIB 4 Dose Schedule 2005-09-20 Completed [facility] rs[facility] of 00:00:00 [facility] Pneumococcal 7 2005-09-20 Completed [facility] Conjugate, PCV7 00:00:00 [facility] (Prevnar7) [facility] IPV 2005-09-20 Completed [facility] 00:[facility]:00 [facility] of Conjugate, PCV13 00:00:00 [facility] dichi (Prevnar 13) Branch Polio (IPV/OPV) 2005-09-20 Completed [facility] 00:00:00 [facility] DTaP, Unspecified 2005-09-20 Completed [facility] Formulation 00:00:00 [facility] HEPATITIS A 2005-09-20 Completed [facility] of 00:00:00 [facility] HIB 4 Dose Schedule 2005-09-20 Completed [facility]ive rs[facility] of 00:00:00 [facility] Pneumococcal 7 2005-09-20 Completed [facility] Conjugate, PCV7 00:00:00 [facility] (Prevnar7) [facility] IPV 2005-09-20 Completed [facility] 00:00:00 [facility] [...] of 00:00:00 [facility] DTaP, Unspecified 2005-09-20 Completed [facility] Formulation 00:00:00 [facility] HEPATITIS A 2005-09-20 Completed [facility] of 00:00:00 [facility] HIB 4 Dose Schedule 2005-09-20 Completed [facility] rs[facility] of 00:00:00 [facility] Pneumococcal 7 2005-09-20 Completed [facility] Conjugate, PCV7 00:00:00 [facility] (Prevnar7) [facility] IPV 2005-09-20 Completed [facility] 00:00:00 [facility] [...] of 00:00:00 [facility] DTaP, Unspecified 2005-09-20 Completed [facility] Formulation 00:00:00 [facility] HEPATITIS A 2005-09-20 Completed [facility] of 00:00:00 [facility] HIB 4 Dose Schedule 2005-09-20 Completed [facility] rs[facility] of 00:00:00 [facility] Pneumococcal 7 2005-09-20 Completed [facility] Conjugate, PCV7 00:00:00 [facility] (Prevnar7) [facility] IPV 2005-09-20 Completed [facility] 00:00:00 [facility] [...] of 00:00:00 [facility] DTaP, Unspecified 2005-09-20 Completed [facility] Formulation 00:00:00 [facility] HEPATITIS A 2005-09-20 Completed [facility] 00:00:00 [facility] HIB 4 Dose Schedule 2005-09-20 Completed [facility] rs[facility] of 00:00:00 [facility] Pneumococcal 7 2005-09-20 Completed [facility] Conjugate, PCV7 00:00:00 [facility] (Prevnar7) [facility] IPV 2005-09-20 Completed [facility] 00:00:00 [facility] [...] of 00:00:00 [facility] DTaP, Unspecified 2005-09-20 Completed [facility] Formulation 00:00:00 [facility] HEPATITIS A 2005-09-20 Completed [facility] 00:00:00 [facility] HIB 4 Dose Schedule 2005-09-20 Completed [facility] rs[facility] of 00:00:00 [facility] Pneumococcal 7 2005-09-20 Completed [facility] Conjugate, PCV7 00:00:00 [facility] (Prevnar7) [facility] IPV 2005-09-20 Completed [facility] 00:00:00 [facility] [...] of 00:00:00 [facility] DTaP, Unspecified 2005-09-20 Completed [facility] Formulation 00:00:00 [facility] HEPATITIS A 2005-09-20 Completed [facility] 00:00:00 [facility] HIB 4 Dose Schedule 2005-09-20 Completed [facility]ive rsity of 00:00:00 [facility] Pneumococcal 7 2005-09-20 Completed [facility] of Conjugate, PCV7 00:00:00 [facility] ical (Prevnar7) Branch IPV 2005-09-20 Completed [facility] 00:00:00 [facility] [...] of 00:00:00 [facility] DTaP, Unspecified 2005-09-20 Completed [facility] Formulation 00:00:00 [facility] HEPATITIS A 2005-09-20 Completed [facility] 00:00:00 [facility] HIB 4 Dose Schedule 2005-09-20 Completed [facility]ive rsity of 00:00:00 [facility] Pneumococcal 7 2005-09-20 Completed [facility] of Conjugate, PCV7 00:00:00 [facility] ical (Prevnar7) Branch IPV 2005-09-20 Completed [facility] 00:00:00 [facility] [...] of 00:00:00 [facility] DTaP, Unspecified 2005-09-20 Completed [facility] Formulation 00:00:00 [facility] HEPATITIS A 2005-09-20 Completed [facility] of 00:00:00 [facility] HIB 4 Dose Schedule 2005-09-20 Completed [facility]ive rsity of 00:00:00 [facility] Pneumococcal 7 2005-09-20 Completed [facility] of Conjugate, PCV7 00:00:00 [facility] ical (Prevnar7) Branch IPV 2005-09-20 Completed [facility] 00:00:00 [facility] [...] of 00:00:00 [facility] DTaP, Unspecified 2005-09-20 Completed [facility] Formulation 00:00:00 [facility] HEPATITIS A 2005-09-20 Completed [facility] of 00:00:00 [facility] HIB 4 Dose Schedule 2005-09-20 Completed [facility] rs[facility] of 00:00:00 [facility] Pneumococcal 7 2005-09-20 Completed [facility] Conjugate, PCV7 00:00:00 [facility] (Prevnar7) [facility] IPV 2005-09-20 Completed [facility] 00:00:00 [facility] [...] of 00:00:00 [facility] DTaP, Unspecified 2005-09-20 Completed [facility] Formulation 00:00:00 [facility] HEPATITIS A 2005-09-20 Completed [facility] of 00:00:00 [facility] HIB 4 Dose Schedule 2005-09-20 Completed [facility] rs[facility] of 00:00:00 [facility] Pneumococcal 7 2005-09-20 Completed [facility] of Conjugate, PCV7 00:00:00 [facility] ical (Prevnar7) Branch IPV 2005-09-20 Completed [facility] 00:00:00 [facility] [...] of 00:00:00 [facility] DTaP, Unspecified 2005-09-20 Completed [facility] Formulation 00:00:00 [facility] HEPATITIS A 2005-09-20 Completed [facility] of 00:00:00 [facility] HIB 4 Dose Schedule 2005-09-20 Completed [facility] rsity of 00:00:00 [facility] Pneumococcal 7 2005-09-20 Completed [facility] of Conjugate, PCV7 00:00:00 [facility] (Prevnar7) [facility] IPV 2005-09-20 Completed [facility] 00:00:00 [facility] [...] of 00:00:00 [facility] DTaP, Unspecified 2005-09-20 Completed [facility] Formulation 00:00:00 [facility] HEPATITIS A 2005-09-20 Completed [facility] of 00:00:00 [facility] HIB 4 Dose Schedule 2005-09-20 Completed [facility]ive rsity of 00:00:00 [facility] Pneumococcal 7 2005-09-20 Completed [facility] of Conjugate, PCV7 00:00:00 [facility] ical (Prevnar7) Branch IPV 2005-09-20 Completed [facility] 00:00:00 [facility] [...] of 00:00:00 [facility] DTaP, Unspecified 2005-09-20 Completed [facility] of Formulation 00:00:00 [facility] HEPATITIS A 2005-09-20 Completed [facility] of 00:00:00 [facility] HIB 4 Dose Schedule 2005-09-20 Completed [facility]ive rsity of 00:00:00 [facility] Pneumococcal 7 2005-09-20 Completed [facility] Conjugate, PCV7 00:00:00 [facility] (Prevnar7) [facility] IPV 2005-09-20 Completed [facility] 00:00:00 [facility] [...] of 00:00:00 [facility] DTaP, Unspecified 2005-09-20 Completed [facility] Formulation 00:00:00 [facility] HEPATITIS A 2005-09-20 Completed [facility] of 00:00:00 [facility] HIB 4 Dose Schedule 2005-09-20 Completed [facility] rs[facility] of 00:00:00 [facility] Pneumococcal 7 2005-09-20 Completed [facility] of Conjugate, PCV7 00:00:00 [facility] ical (Prevnar7) Branch IPV 2005-09-20 Completed [facility] 00:00:00 [facility] [...] of 00:00:00 [facility] DTaP, Unspecified 2005-09-20 Completed [facility] Formulation 00:00:00 [facility] HEPATITIS A 2005-09-20 Completed [facility] of 00:00:00 [facility] HIB 4 Dose Schedule 2005-09-20 Completed [facility] rsity of 00:00:00 [facility] Pneumococcal 7 2005-09-20 Completed [facility] of Conjugate, PCV7 00:00:00 [facility] (Prevnar7) [facility] IPV 2005-09-20 Completed [facility] of 00:00:00 [facility] DTAP 2004-07-22 Completed [facility] 00:00:00 [facility] [...] Varicella 2004-07-22 Completed University of (varivax)(chicken 00:00:00 [facility] edical pox) Branch DTAP 2004-07-22 [...] Branch DTAP 2004-07-22 Completed [facility] of 00:00:00 [facility] Hep B, Adol or [...] Varicella 2004-07-22 Completed [facility] of (varivax)(chicken 00:00:00 [facility] edical pox) Branch DTAP 2004-07-22 [...] Branch DTAP 2004-07-22 Completed [facility] of 00:00:00 [facility] Hep B, Adol or [...] 2004-07-22 Completed Unive rsity of Dosage 00:00:00 [facility] MMR 2004-07-22 Completed [facility] of 00:00:00 [facility] Polio (IPV/OPV) 2004-07-22 Completed [facility] 00:00:00 [facility] Varicella 2004-07-22 Completed [facility] of (varivax)(chicken 00:00:00 [facility] edical pox) Branch DTAP 2004-07-22 Completed [facility] of 00:00:00 [facility] Hep B, Adol or Pedi 2004-07-22 Completed Unive rsity of Dosage 00:00:00 [facility] MMR 2004-07-22 Completed [facility] of 00:00:00 [facility] Polio (IPV/OPV) 2004-07-22 Completed [facility] 00:00:00 [facility] Varicella 2004-07-22 Completed [facility] of (varivax)(chicken 00:00:00 [facility] edical pox) Branch DTAP 2004-07-22 [...] Varicella 2004-07-22 Completed [facility] of (varivax)(chicken 00:00:00 [facility] edical pox) Branch DTAP 2004-07-22 Completed [facility] of 00:00:00 [facility] Hep B, Adol or [...] Branch DTAP 2004-07-22 Completed [facility] of 00:00:00 [facility] Hep B, Adol or [...] Branch DTAP 2004-07-22 Completed [facility] of 00:00:00 [facility] Hep B, Adol or [...] Branch DTAP 2004-07-22 Completed [facility] of 00:00:00 [facility] Hep B, Adol or Pedi 2004-07-22 Completed Unive rsity of Dosage 00:00:00 [facility] MMR 2004-07-22 Completed [facility] of 00:00:00 [facility] Polio (IPV/OPV) 2004-07-22 Completed [facility] 00:00:00 [facility] Varicella 2004-07-22 Completed [facility] of (varivax)(chicken 00:00:00 [facility] edical pox) Branch DTAP 2004-07-22 [...] Varicella 2004-07-22 Completed [facility] of (varivax)(chicken 00:00:00 [facility] edical pox) Branch DTAP 2004-07-22 [...] Varicella 2004-07-22 Completed [facility] of (varivax)(chicken 00:00:00 [facility] edical pox) Branch DTAP 2004-07-22 [...] Varicella 2004-07-22 Completed [facility] of (varivax)(chicken 00:00:00 [facility] edical pox) Branch DTaP, Unspecified 2004-07-22 Completed [facility] Formulation 00:00:00 [facility] IPV 2004-07-22 Completed [facility] of 00:00:00 [facility] DTAP 2004-07-22 Completed [facility] of 00:00:00 [facility] Hep B, Adol or Pedi 2004-07-22 Completed Unive rsity of Dosage 00:00:00 [facility] MMR 2004-07-22 Completed [facility] of 00:00:00 [facility] Polio (IPV/OPV) 2004-07-22 Completed [facility] 00:00:00 [facility] Varicella 2004-07-22 Completed [facility] of (varivax)(chicken 00:00:00 [facility] edical pox) Branch DTaP, Unspecified 2004-07-22 Completed [facility] of Formulation 00:00:00 [facility] IPV 2004-07-22 Completed [facility] of 00:00:00 [facility] DTAP 2004-07-22 Completed [facility] of 00:00:00 [facility] Hep B, Adol or Pedi 2004-07-22 Completed Unive rsity of Dosage 00:00:00 [facility] MMR 2004-07-22 Completed [facility] of 00:00:00 [facility] Polio (IPV/OPV) 2004-07-22 Completed [facility] 00:00:00 [facility] Varicella 2004-07-22 Completed [facility] of (varivax)(chicken 00:00:00 [facility] edical pox) Branch DTaP, Unspecified 2004-07-22 Completed [facility] of Formulation 00:00:00 [facility] IPV 2004-07-22 Completed [facility] of 00:00:00 [facility] DTAP 2004-07-22 Completed [facility] 00:00:00 [facility] [...] 2004-07-22 Completed [facility] of Formulation 00:00:00 [facility] IPV 2004-07-22 Completed [facility] of 00:00:00 [facility] DTAP 2004-07-22 Completed [facility] of 00:00:00 [facility] Hep B, Adol or Pedi 2004-07-22 Completed [facility]ive rsity of Dosage 00:00:00 [facility] MMR 2004-07-22 Completed [facility] of 00:00:00 [facility] Polio (IPV/OPV) 2004-07-22 Completed [facility] 00:00:00 [facility] Varicella 2004-07-22 Completed [facility] of (varivax)(chicken 00:00:00 [facility] edical pox) Branch DTaP, Unspecified 2004-07-22 Completed [facility] of Formulation 00:00:00 [facility] IPV 2004-07-22 Completed [facility] of 00:00:00 [facility] DTAP 2004-07-22 Completed [facility] 00:00:00 [facility] [...] 2004-07-22 Completed [facility] of Formulation 00:00:00 [facility] IPV 2004-07-22 Completed [facility] of 00:00:00 [facility] DTAP 2004-07-22 Completed [facility] 00:00:00 [facility] [...] 2004-07-22 Completed [facility] of Formulation 00:00:00 [facility] IPV 2004-07-22 Completed [facility] of 00:00:00 [facility] DTAP 2004-07-22 Completed [facility] of 00:00:00 [facility] Hep B, Adol or Pedi 2004-07-22 Completed [facility]ive rsity of Dosage 00:00:00 [facility] MMR 2004-07-22 Completed [facility] of 00:00:00 [facility] Polio (IPV/OPV) 2004-07-22 Completed [facility] 00:00:00 [facility] Varicella 2004-07-22 Completed [facility] of (varivax)(chicken 00:00:00 [facility] edical pox) Branch DTaP, Unspecified 2004-07-22 Completed [facility] of Formulation 00:00:00 [facility] IPV 2004-07-22 Completed [facility] of 00:00:00 [facility] DTAP 2004-07-22 Completed [facility] of 00:00:00 [facility] Hep B, Adol or Pedi 2004-07-22 Completed [facility]ive rsity of Dosage 00:00:00 [facility] MMR 2004-07-22 Completed [facility] of 00:00:00 [facility] Polio (IPV/OPV) 2004-07-22 Completed [facility] 00:00:00 [facility] Varicella 2004-07-22 Completed [facility] of (varivax)(chicken 00:00:00 [facility] edical pox) Branch DTaP, Unspecified 2004-07-22 Completed [facility] it[facility] of Formulation 00:00:00 [facility] IPV 2004-07-22 Completed [facility] of 00:00:00 [facility] DTAP 2004-07-22 Completed [facility] 00:00:00 [facility] [...] 2004-07-22 Completed [facility] of Formulation 00:00:00 [facility] IPV 2004-07-22 Completed [facility] of 00:00:00 [facility] DTAP 2004-07-22 Completed [facility] of 00:00:00 [facility] Hep B, Adol or [...] 2004-07-22 Completed [facility] of Formulation 00:00:00 [facility] IPV 2004-07-22 Completed [facility] of 00:00:00 [facility] DTAP 2004-07-22 Completed [facility] 00:00:00 [facility] [...] 2004-07-22 Completed [facility] ity of Formulation 00:00:00 [facility] IPV 2004-07-22 Completed [facility] of 00:00:00 [facility] DTAP 2004-07-22 Completed [facility] 00:00:00 [facility] [...] 2004-07-22 Completed [facility] of Formulation 00:00:00 [facility] IPV 2004-07-22 Completed [facility] of 00:00:00 [facility] DTAP 2004-07-22 Completed [facility] 00:00:00 [place] [...] 2004-07-22 Completed [facility] it[facility] of Formulation 00:00:00 [facility] IPV 2004-07-22 Completed [facility] of 00:00:00 [facility] DTAP 2004-07-22 Completed University [...] 2004-07-22 Completed [facility] it[facility] of Formulation 00:00:00 [facility] IPV 2004-07-22 Completed [facility] of 00:00:00 [facility] DTAP 2004-07-22 Completed [facility] of 00:00:00 [facility] Hep B, Adol or [...] 2004-07-22 Completed [facility] of Formulation 00:00:00 [facility] IPV 2004-07-22 Completed [facility] of 00:00:00 [facility] DTAP 2004-07-22 Completed [facility] 00:00:00 [facility] [...] 2004-07-22 Completed [facility] it[facility] of Formulation 00:00:00 [facility] IPV 2004-07-22 Completed [facility] of 00:00:00 [facility] DTAP 2004-07-22 Completed [facility] 00:00:00 [facility] [...] 2004-07-22 Completed [facility] of Formulation 00:00:00 [facility] IPV 2004-07-22 Completed [facility] of 00:00:00 [facility] DTAP 2004-07-22 Completed [facility] of 00:00:00 [facility] Hep B, Adol or Pedi 2004-07-22 Completed Unive rsity of Dosage 00:00:00 [facility] MMR 2004-07-22 Completed [facility] of 00:00:00 [facility] Polio (IPV/OPV) 2004-07-22 Completed [facility] 00:00:00 [facility] Varicella 2004-07-22 Completed [facility] of (varivax)(chicken 00:00:00 [facility] edical pox) Branch DTaP, Unspecified 2004-07-22 Completed [facility] ity of Formulation 00:00:00 [facility] IPV 2004-07-22 Completed [facility] of 00:00:00 [facility] DTAP 2004-07-22 Completed [facility] of 00:00:00 [facility] Hep B, Adol or [...] 2004-07-22 Completed [facility] of Formulation 00:00:00 [facility] IPV 2004-07-22 Completed [facility] of 00:00:00 [facility] DTAP 2004-07-22 Completed [facility] of 00:00:00 [facility] Hep B, Adol or Pedi 2004-07-22 Completed Unive rsity of Dosage 00:00:00 [facility] MMR 2004-07-22 Completed [facility] of 00:00:00 [facility] Polio (IPV/OPV) 2004-07-22 Completed [facility] 00:00:00 [facility] Varicella 2004-07-22 Completed [facility] of (varivax)(chicken 00:00:00 [facility] edical pox) Branch DTaP, Unspecified 2004-07-22 Completed [facility] of Formulation 00:00:00 [facility] IPV 2004-07-22 Completed [facility] of 00:00:00 [facility] DTAP 2004-07-22 Completed [facility] of 00:00:00 [facility] Hep B, Adol or Pedi 2004-07-22 Completed Unive rsity of Dosage 00:00:00 [facility] MMR 2004-07-22 Completed [facility] of 00:00:00 [facility] Polio (IPV/OPV) 2004-07-22 Completed [facility] 00:00:00 [facility] Varicella 2004-07-22 Completed [facility] of (varivax)(chicken 00:00:00 [facility] edical pox) Branch DTaP, Unspecified 2004-07-22 Completed [facility] ity of Formulation 00:00:00 [facility] IPV 2004-07-22 Completed [facility] of 00:00:00 [facility] DTAP 2004-07-22 Completed [facility] 00:00:00 [facility] [...] 2004-07-22 Completed [facility] it[facility] of Formulation 00:00:00 [facility] IPV 2004-07-22 Completed [facility] of 00:00:00 [facility] DTAP 2004-07-22 Completed [facility] of 00:00:00 [facility] Hep B, Adol or Pedi 2004-07-22 Completed Unive rsity of Dosage 00:00:00 [facility] MMR 2004-07-22 Completed [facility] of 00:00:00 [facility] Polio (IPV/OPV) 2004-07-22 Completed [facility] 00:00:00 [facility] Varicella 2004-07-22 Completed [facility] of (varivax)(chicken 00:00:00 [facility] edical pox) Branch DTaP, Unspecified 2004-07-22 Completed [facility] it[facility] of Formulation 00:00:00 [facility] IPV 2004-07-22 Completed [facility] of 00:00:00 [facility] DTAP 2004-07-22 Completed [facility] of 00:00:00 [facility] [...] 2004-07-22 Completed [facility] ity of Formulation 00:00:00 [facility] IPV 2004-07-22 Completed [facility] of 00:00:00 [facility] DTAP 2004-07-22 Completed [facility] 00:00:00 [facility] [...] 2004-07-22 Completed [facility] of Formulation 00:00:00 [facility] IPV 2004-07-22 Completed [facility] of 00:00:00 [facility] DTAP 2003-06-04 Completed [facility] 00:00:00 [facility] [...] Schedule 2003-06-04 Completed Unive rsity of 00:00:00 [facility] Hep B, Adol or Pedi 2003-06-04 [...] 2003-06-04 Completed [facility] ity of Formulation 00:00:00 [facility] HIB 4 Dose Schedule 2003-06-04 Completed Unive rsity of 00:00:00 [facility] IPV 2003-06-04 Completed [facility] of 00:00:00 [facility] DTAP 2003-06-04 Completed [facility] of 00:00:00 [...] 2003-06-04 Completed [facility] of Formulation 00:00:00 [facility] HIB 4 Dose Schedule 2003-06-04 Completed Unive rsity of 00:00:00 [facility] IPV 2003-06-04 Completed [facility] of 00:00:00 [facility] DTAP 2003-06-04 Completed [facility] of 00:00:00 [...] Varicella 2003-06-04 Completed [facility] of (varivax)(chicken 00:00:00 [facility] edical pox) Branch DTaP, Unspecified 2003-06-04 Completed [facility] Formulation 00:00:00 [facility] HIB 4 Dose Schedule 2003-06-04 Completed Unive rsity of 00:00:00 [facility] IPV 2003-06-04 Completed [facility] of 00:00:00 [facility] DTAP 2003-06-04 Completed [facility] 00:00:00 [facility] [...] 2003-06-04 Completed [facility] of Formulation 00:00:00 [facility] HIB 4 Dose Schedule 2003-06-04 Completed Unive rsity of 00:00:00 [facility] IPV 2003-06-04 Completed [facility] of 00:00:00 [facility] DTAP 2003-06-04 Completed [facility] 00:00:00 [facility] [...] 2003-06-04 Completed [facility] ity of Formulation 00:00:00 [facility] HIB 4 Dose Schedule 2003-06-04 Completed Unive rsity of 00:00:00 [facility] IPV 2003-06-04 Completed University of 00:00:00 [facility] DTAP 2003-06-04 Completed University of 00:00:00 [facility] [...] 2003-06-04 Completed [facility] ity of Formulation 00:00:00 [facility] HIB 4 Dose Schedule 2003-06-04 Completed Unive rsity of 00:00:00 [facility] IPV 2003-06-04 Completed University of 00:00:00 [facility] DTAP 2003-06-04 Completed University of 00:00:00 [facility] [...] 2003-06-04 Completed [facility] ity of Formulation 00:00:00 [facility] HIB 4 Dose Schedule 2003-06-04 Completed Unive rsity of 00:00:00 [facility] IPV 2003-06-04 Completed University of 00:00:00 [facility] DTAP 2003-06-04 Completed University of 00:00:00 [facility] [...] 2003-06-04 Completed [facility] ity of Formulation 00:00:00 [facility] HIB 4 Dose Schedule 2003-06-04 Completed Unive rsity of 00:00:00 [facility] IPV 2003-06-04 Completed University of 00:00:00 [facility] DTAP 2003-06-04 Completed University of 00:00:00 [facility] [...] 2003-06-04 Completed [facility] ity of Formulation 00:00:00 [facility] HIB 4 Dose Schedule 2003-06-04 Completed Unive rsity of 00:00:00 [facility] IPV 2003-06-04 Completed University of 00:00:00 [facility] Branch DTAP 2003-06-04 Completed University of 00:00:00 [...] 2003-06-04 Completed [facility] ity of Formulation 00:00:00 [facility] HIB 4 Dose Schedule 2003-06-04 Completed Unive rsity of 00:00:00 [facility] IPV 2003-06-04 Completed University of 00:00:00 [facility] DTAP 2003-06-04 Completed University of 00:00:00 [facility] [...] 2003-06-04 Completed [facility] ity of Formulation 00:00:00 [facility] HIB 4 Dose Schedule 2003-06-04 Completed Unive rsity of 00:00:00 [facility] IPV 2003-06-04 Completed University of 00:00:00 [facility] DTAP 2003-06-04 Completed University of 00:00:00 [facility] [...] 2003-06-04 Completed [facility] ity of Formulation 00:00:00 [facility] HIB 4 Dose Schedule 2003-06-04 Completed Unive rsity of 00:00:00 [facility] IPV 2003-06-04 Completed University of 00:00:00 [facility] DTAP 2003-06-04 Completed University of 00:00:00 [facility] [...] Varicella 2003-06-04 Completed University of (varivax)(chicken 00:00:00 [facility] edical pox) Branch DTaP, Unspecified 2003-06-04 Completed [facility] ity of Formulation 00:00:00 [facility] HIB 4 Dose Schedule 2003-06-04 Completed Unive rsity of 00:00:00 [facility] IPV 2003-06-04 Completed University of 00:00:00 [facility] DTAP 2003-06-04 Completed University of 00:00:00 [facility] [...] 2003-06-04 Completed [facility] ity of Formulation 00:00:00 [facility] HIB 4 Dose Schedule 2003-06-04 Completed Unive rsity of 00:00:00 [facility] IPV 2003-06-04 Completed University of 00:00:00 [facility] DTAP 2003-06-04 Completed University of 00:00:00 [...] Varicella 2003-06-04 Completed University of (varivax)(chicken 00:00:00 [facility] edical pox) Branch DTaP, Unspecified 2003-06-04 Completed [facility] ity of Formulation 00:00:00 [facility] HIB 4 Dose Schedule 2003-06-04 Completed Unive rsity of 00:00:00 [facility] IPV 2003-06-04 Completed University of 00:00:00 [facility] DTAP 2003-06-04 Completed University of 00:00:00 [facility] [...] Varicella 2003-06-04 Completed University of (varivax)(chicken 00:00:00 [facility] edical pox) Branch DTaP, Unspecified 2003-06-04 Completed [facility] ity of Formulation 00:00:00 [facility] HIB 4 Dose Schedule 2003-06-04 Completed Unive rsity of 00:00:00 [facility] IPV 2003-06-04 Completed University of 00:00:00 [facility] DTAP 2003-06-04 Completed University of 00:00:00 [facility] [...] Varicella 2003-06-04 Completed University of (varivax)(chicken 00:00:00 [facility] edical pox) Branch DTaP, Unspecified 2003-06-04 Completed [facility] ity of Formulation 00:00:00 [facility] HIB 4 Dose Schedule 2003-06-04 Completed Unive rsity of 00:00:00 [facility] IPV 2003-06-04 Completed University of 00:00:00 [facility] DTAP 2003-06-04 Completed University of 00:00:00 [facility] [...] Varicella 2003-06-04 Completed University of (varivax)(chicken 00:00:00 [facility] edical pox) Branch DTaP, Unspecified 2003-06-04 Completed [facility] ity of Formulation 00:00:00 [facility] HIB 4 Dose Schedule 2003-06-04 Completed Unive rsity of 00:00:00 [facility] IPV 2003-06-04 Completed University of 00:00:00 [facility] DTAP 2003-06-04 Completed University of 00:00:00 [facility] [...] 2003-06-04 Completed [facility] ity of Formulation 00:00:00 [facility] HIB 4 Dose Schedule 2003-06-04 Completed Unive rsity of 00:00:00 [facility] IPV 2003-06-04 Completed University of 00:00:00 [facility] DTAP 2003-06-04 Completed University of 00:00:00 [facility] [...] 2003-06-04 Completed [facility] ity of Formulation 00:00:00 [facility] HIB 4 Dose Schedule 2003-06-04 Completed Unive rsity of 00:00:00 [facility] IPV 2003-06-04 Completed University of 00:00:00 [facility] DTAP 2003-06-04 Completed University of 00:00:00 [facility] [...] Varicella 2003-06-04 Completed University of (varivax)(chicken 00:00:00 [facility] edical pox) Branch DTaP, Unspecified 2003-06-04 Completed [facility] ity of Formulation 00:00:00 [facility] HIB 4 Dose Schedule 2003-06-04 Completed Unive rsity of 00:00:00 [facility] IPV 2003-06-04 Completed University of 00:00:00 [facility] DTAP 2003-06-04 Completed University of 00:00:00 [facility] HIB 3 Dose Schedule 2003-06-04 Completed Unive rsity of 00:00:00 [facility] Hep B, Adol or Pedi 2003-06-04 Completed Unive rsity of Dosage 00:00:00 [facility] MMR 2003-06-04 Completed University of 00:00:00 [facility] Polio (IPV/OPV) 2003-06-04 Completed Universit y of 00:00:00 [facility] Varicella 2003-06-04 Completed University of (varivax)(chicken 00:00:00 [facility] edical pox) Branch DTaP, Unspecified 2003-06-04 Completed [facility] ity of Formulation 00:00:00 [facility] HIB 4 Dose Schedule 2003-06-04 Completed Unive rsity of 00:00:00 [facility] IPV 2003-06-04 Completed University of 00:00:00 [facility] DTAP 2003-06-04 Completed University of 00:00:00 [facility] [...] 2003-06-04 Completed [facility] ity of Formulation 00:00:00 [facility] HIB 4 Dose Schedule 2003-06-04 Completed Unive rsity of 00:00:00 [facility] IPV 2003-06-04 Completed University of 00:00:00 [facility] DTAP 2003-06-04 Completed University of 00:00:00 [facility] HIB 3 Dose Schedule 2003-06-04 Completed Unive rsity of 00:00:00 [facility] Hep B, Adol or Pedi 2003-06-04 Completed Unive rsity of Dosage 00:00:00 [facility] MMR 2003-06-04 Completed University of 00:00:00 [facility] Polio (IPV/OPV) 2003-06-04 Completed Universit y of 00:00:00 [facility] Varicella 2003-06-04 Completed [facility] of (varivax)(chicken 00:00:00 [place] [facility]ox) [facility] DTaP, Unspecified 2003-06-04 Completed [facility] ity of Formulation 00:00:00 [facility] HIB 4 Dose Schedule 2003-06-04 Completed Unive rsity of 00:00:00 [facility] IPV 2003-06-04 Completed University of 00:00:00 [facility] DTAP 2003-06-04 Completed University of 00:00:00 [...] 2003-06-04 Completed [facility] ity of Formulation 00:00:00 [facility] HIB 4 Dose Schedule 2003-06-04 Completed Unive rsity of 00:00:00 [facility] IPV 2003-06-04 Completed University of 00:00:00 [facility] DTAP 2003-06-04 Completed University of 00:00:00 [facility] [...] 2003-06-04 Completed Univers ity of Formulation 00:00:00 [facility] HIB 4 Dose Schedule 2003-06-04 Completed Unive rsity of 00:00:00 [facility] IPV 2003-06-04 Completed University of 00:00:00 [facility] DTAP Unknown Completed [facility] DTAP Unknown Completed [facility] DTAP Unknown Completed [facility] DTAP Unknown Completed [facility] HIB 3 Dose Schedule Unknown Completed Unive rsity [facility] HIB 3 Dose Schedule Unknown Completed Unive rsity [facility] Hepatitis A Adult Unknown Completed Univers ity [facility] Hepatitis A Adult Unknown Completed Univers ity [facility] Hep B, Adol or Pedi Unknown Completed Unive rsity of Dosage [facility] Hep B, Adol or Pedi Unknown Completed Unive rsity of Dosage [facility] Hep B, Adol or Pedi Unknown Completed Unive rsity of Dosage [facility] Meningococcal Unknown Completed [facility] Vaccine [facility] MMR Unknown Completed [facility] MMR Unknown Completed [facility] Pneumococcal 13 Unknown Completed Universit y of Conjugate, PCV13 [facility] dichi (Prevnar 13) Branch Polio (IPV/OPV) Unknown Completed Universit y [facility] Polio (IPV/OPV) Unknown Completed Universit y [facility] Polio (IPV/OPV) Unknown Completed Universit y [facility] Polio (IPV/OPV) Unknown Completed Universit y [facility] TDAP Unknown Completed [facility] Varicella Unknown Completed University (varivax)(chicken [place] [facility] pox) Branch Varicella Unknown Completed University (varivax)(chicken [place] [facility] pox) Branch Meningococcal B, OMV Unknown Completed Univ ersity [facility] Influenza Virus Unknown Completed Universit y of Vaccine Quad .5 mL [facility] 6+ MO Branch (FLUZONE/FLULAVAL/FL UARIX) TDAP Unknown Completed [facility] DTaP, Unspecified Unknown Completed Univers ity of Formulation [facility] DTaP, Unspecified Unknown Completed [facility] ity of Formulation [facility] DTaP, Unspecified Unknown Completed [facility] ity of Formulation [facility] DTaP, Unspecified Unknown Completed [facility] ity of Formulation [facility] HEPA,NOS Unknown Completed [facility] HEPATITIS A Unknown Completed [facility] HIB 4 Dose Schedule Unknown Completed Unive rsity [facility] HIB 4 Dose Schedule Unknown Completed Unive rsity [facility] Meningococcal Unknown Completed University of Polysaccharide [place] [facility] (groups A, C, Y and Branc h W-135) conjugate vaccine (MCV4P) Pneumococcal 7 Unknown Completed University of Conjugate, PCV7 [facility] ical (Prevnar7) Branch IPV Unknown Completed [facility] IPV Unknown Completed [facility] IPV Unknown Completed [facility] IPV Unknown Completed [facility] TDAP Unknown Completed [facility] DTAP Unknown Completed [facility] DTAP Unknown Completed [facility] DTAP Unknown Completed [facility] DTAP Unknown Completed [facility] HIB 3 Dose Schedule Unknown Completed Unive rsity [facility] HIB 3 Dose Schedule Unknown Completed Unive rsity [facility] Hepatitis A Adult Unknown Completed Univers ity [facility] Hepatitis A Adult Unknown Completed Univers ity [facility] Hep B, Adol or Pedi Unknown Completed Unive rsity of Dosage [facility] Hep B, Adol or Pedi Unknown Completed Unive rsity of Dosage [facility] Hep B, Adol or Pedi Unknown Completed Unive rsity of Dosage [facility] Meningococcal Unknown Completed University Vaccine [facility] MMR Unknown Completed [facility] MMR Unknown Completed [facility] Pneumococcal 13 Unknown Completed Universit y of Conjugate, PCV13 [facility] dical (Prevnar 13) Branch Polio (IPV/OPV) Unknown Completed Universit y [facility] Polio (IPV/OPV) Unknown Completed Universit y of [facility] Polio (IPV/OPV) Unknown Completed Universit y [facility] Polio (IPV/OPV) Unknown Completed Universit y [facility] TDAP Unknown Completed [facility] Varicella Unknown Completed [facility] of (varivax)(chicken [place] [facility] pox) Branch Varicella Unknown Completed [facility] (varivax)(chicken [place] [facility] pox) Branch Meningococcal B, OMV Unknown Completed Univ ersity [facility] Influenza Virus Unknown Completed Universit y of Vaccine Quad .5 mL [facility] 6+ MO Branch (FLUZONE/FLULAVAL/FL UARIX) TDAP Unknown Completed [facility] DTaP, Unspecified Unknown Completed Univers ity of Formulation [facility] DTaP, Unspecified Unknown Completed Univers ity of Formulation [facility] DTaP, Unspecified Unknown Completed Univers ity of Formulation [facility] DTaP, Unspecified Unknown Completed Univers ity of Formulation [facility] HEPA,NOS Unknown Completed [facility] HEPATITIS A Unknown Completed [facility] HIB 4 Dose Schedule Unknown Completed Unive rsity [facility] HIB 4 Dose Schedule Unknown Completed Unive rsity [facility] Meningococcal Unknown Completed [facility] lottie (groups A, C, Y and Branc h W-135) conjugate vaccine (MCV4P) Pneumococcal 7 Unknown Completed [facility] Conjugate, PCV7 [facility] ical (Prevnar7) Branch IPV Unknown Completed [facility] IPV Unknown Completed [facility] IPV Unknown Completed [facility] IPV Unknown Completed [facility] TDAP Unknown Completed [facility] DTAP Unknown Completed [facility] DTAP Unknown Completed [facility] DTAP Unknown Completed [facility] DTAP Unknown Completed [facility] HIB 3 Dose Schedule Unknown Completed Unive rsity [facility] HIB 3 Dose Schedule Unknown Completed Unive rsity [facility] Hepatitis A Adult Unknown Completed Univers ity [facility] Hepatitis A Adult Unknown Completed Univers ity [facility] Hep B, Adol or Pedi Unknown Completed Unive rsity of Dosage [facility] Hep B, Adol or Pedi Unknown Completed Unive rsity of Dosage [facility] Hep B, Adol or Pedi Unknown Completed Unive rsity of Dosage [facility] Meningococcal Unknown Completed University Vaccine [facility] MMR Unknown Completed [facility] MMR Unknown Completed [facility] Pneumococcal 13 Unknown Completed Universit y of Conjugate, PCV13 [facility] dical (Prevnar 13) Branch Polio (IPV/OPV) Unknown Completed Universit y [facility] Polio (IPV/OPV) Unknown Completed Universit y [facility] Polio (IPV/OPV) Unknown Completed Universit y [facility] Polio (IPV/OPV) Unknown Completed Universit y [facility] TDAP Unknown Completed [facility] Varicella Unknown Completed [facility] of (varivax)(chicken [place] [facility] pox) Branch Varicella Unknown Completed [facility] (varivax)(chicken [place] [facility] pox) Branch Meningococcal B, OMV Unknown Completed Univ ersity [facility] Influenza Virus Unknown Completed Universit y of Vaccine Quad .5 mL [facility] IM 6+ MO Branch (FLUZONE/FLULAVAL/FL UARIX) TDAP Unknown Completed [facility] DTaP, Unspecified Unknown Completed Univers ity of Formulation [facility] DTaP, Unspecified Unknown Completed Univers ity of Formulation [facility] DTaP, Unspecified Unknown Completed Univers ity of Formulation [facility] DTaP, Unspecified Unknown Completed Univers ity of Formulation [facility] HEPA,NOS Unknown Completed [facility] HEPATITIS A Unknown Completed [facility] HIB 4 Dose Schedule Unknown Completed Unive rsity [facility] HIB 4 Dose Schedule [facility] (groups A, C, Y and Branc h W-135) conjugate vaccine (MCV4P) Pneumococcal 7 Unknown Completed [facility] Conjugate, PCV7 [facility] ical (Prevnar7) Branch IPV Unknown Completed [facility] IPV Unknown Completed [facility] IPV Unknown Completed [facility] IPV Unknown Completed [facility] DTAP Unknown Completed [facility] DTAP Unknown Completed [facility] DTAP Unknown Completed [facility] DTAP Unknown Completed [facility] HIB 3 Dose Schedule Unknown [facility] D[facility] A Adult Unknown Completed Univers ity [facility] Hepatitis A Adult Unknown Completed Univers ity [facility] Hep B, Adol or Pedi Unknown Completed Unive rsity of Dosage [facility] Hep B, Adol or Pedi Unknown Completed Unive rsity of Dosage [facility] Hep B, Adol or Pedi Unknown Completed Unive rsity of Dosage [facility] Meningococcal Unknown Completed [place] of Vaccine [facility] MMR Unknown Completed [facility] MMR Unknown Completed [facility] Pneumococcal 13 Unknown Completed Universit y of Conjugate, PCV13 [facility] dical (Prevnar 13) Branch Polio (IPV/OPV) Unknown Completed Universit y [facility] Polio (IPV/OPV) Unknown Completed Universit y [facility] Polio (IPV/OPV) Unknown Completed Universit y [facility] Polio (IPV/OPV) Unknown Completed Universit [facility] TDAP Unknown Completed [facility] Varicella Unknown Completed University of (varivax)(chicken [place] [facility] pox) Branch Varicella Unknown Completed [facility] of (varivax)(chicken [place] [facility] pox) Branch Meningococcal B, OMV Unknown Completed Univ [facility] Influenza Virus Unknown Completed Universit y of Vaccine Quad .5 mL [facility] IM 6+ MO Branch (FLUZONE/FLULAVAL/FL UARIX) TDAP Unknown Completed [facility] DTaP, Unspecified Unknown Completed Univers ity of Formulation [facility] DTaP, Unspecified Unknown Completed Univers ity of Formulation [facility] DTaP, Unspecified Unknown Completed Univers ity of Formulation [facility] DTaP, Unspecified Unknown Completed Univers ity of Formulation [facility] HEPA,NOS Unknown Completed [facility] HEPATITIS A Unknown Completed [facility] HIB 4 Dose Schedule Unknown Completed [facility] HIB 4 Dose Schedule Unknown Completed [facility] Meningococcal Unknown Completed [facility] (groups A, C, Y and Branc h W-135) conjugate vaccine (MCV4P) Pneumococcal 7 Unknown Completed [facility] Conjugate, PCV7 [facility] ical (Prevnar7) Branch IPV Unknown Completed [facility] IPV Unknown Completed [facility] IPV Unknown Completed [facility] IPV Unknown Completed [facility] Vital Signs Vital Name Observation Time Observation Value Comments Source Systolic blood 2022-08-12 15:38:00 123 mm[Hg] [facility] Diastolic blood 2022-08-12 15:38:00 81 mm[Hg] [facility] Heart rate 2022-08-12 15:38:00 92 /min [facility] Body temperature 2022-08-12 15:38:00 35.83 Nabila [facility] Respiratory rate 2022-08-12 15:38:00 18 /min [facility] Body height 2022-08-12 15:38:00 167.6 cm [facility] Body weight 2022-08-12 15:38:00 80.377 kg [facility] BMI 2022-08-12 15:38:00 28.60 kg/m2 [facility] Systolic blood 2022-08-01 15:20:00 134 mm[Hg] [facility] Diastolic blood 2022-08-01 15:20:00 90 mm[Hg] Unive rsity of pressure [facility] Branch Heart rate 2022-08-01 14:55:00 91 /min Universi ty of [facility] Body temperature 2022-08-01 14:55:00 36.5 Nabila Univ ersity of [facility] Respiratory rate 2022-08-01 14:55:00 17 /min Univ ersity of [facility] Body height 2022-08-01 14:55:00 167.6 cm [facility] Body weight 2022-08-01 14:55:00 81.874 kg [facility] BMI 2022-08-01 14:55:00 29.13 kg/m2 Universi ty of [facility] Systolic blood 2022-07-29 16:00:00 131 mm[Hg] Univer sity of pressure [facility] Diastolic blood 2022-07-29 16:00:00 77 mm[Hg] Unive rsity of [facility] Respiratory rate 2022-07-29 15:56:00 18 /min Univ ersity of [facility] Heart rate 2022-07-29 12:15:00 112 /min Universi ty of [facility] Oxygen saturation in 2022-07-29 12:15:00 96 /min University of Arterial blood by [facility] Pulse oximetry [place] Body temperature 2022-07-29 10:00:00 36.89 Nabila Univ ersity of [facility] Body height 2022-07-29 03:10:00 167.6 cm [facility] [place] [facility] [place] Body weight 2022-07-29 03:10:00 83.643 kg [facility] BMI 2022-07-29 03:10:00 29.76 kg/m2 Universi ty of [facility] Systolic blood 2022-07-25 13:45:00 140 mm[Hg] Univer sity of pressure [facility] Diastolic blood 2022-07-25 13:45:00 97 mm[Hg] Unive rsity of pressure [facility] Heart rate 2022-07-25 12:15:00 92 /min Universi ty of [facility] Body temperature 2022-07-25 12:15:00 36.67 Nabila Univ ersity of [facility] Respiratory rate 2022-07-25 12:15:00 18 /min Univ [facility] [place] [facility] Oxygen saturation in 2022-07-25 12:15:00 100 /min University of Arterial blood by [facility] lottie Pulse oximetry Branch Body height 2022-07-24 [...] 99 /min University of Arterial blood by [facility] Pulse oximetry Branch Body height 2022-07-21 15:36:00 [...] 100 /min University of Arterial blood by [facility] Pulse oximetry Branch Body height 2022-07-21 15:36:00 [...] 99 /min University of Arterial blood by [place] [facility] lottie Pulse oximetry Branch Body height 2022-07-17 [...] 99 /min University of Arterial blood by [place] [facility] lottie Pulse oximetry Branch Body temperature 2022-07-11 [...] 19:21:00 79 mm[Hg] Unive rsity of pressure [facility] Heart rate 2022-07-08 19:21:00 94 /min Universi ty of [facility] Body temperature 2022-07-08 19:21:00 36.22 Nabila Univ ersity of [facility] Respiratory rate 2022-07-08 19:21:00 18 /min Univ ersity of [facility] Body height 2022-07-08 19:21:00 167.6 cm Universi ty of [facility] Body weight 2022-07-08 19:21:00 86.909 kg Universi ty of [facility] BMI 2022-07-08 19:21:00 30.93 kg/m2 Universi ty of [facility] Heart rate 2022-07-06 09:15:00 96 /min Universi ty of [facility] Oxygen saturation in 2022-07-06 09:15:00 99 /min University of Arterial blood by [facility] Pulse oximetry Branch Systolic blood 2022-07-06 05:20:00 121 mm[Hg] Univer sity of pressure [facility] Diastolic blood 2022-07-06 05:20:00 70 mm[Hg] Unive rsity of pressure [facility] Body temperature 2022-07-06 05:20:00 37.06 Nabila Univ ersity of [facility] Body height 2022-07-06 05:20:00 167.6 cm Universi ty of [facility] Body weight 2022-07-06 05:20:00 86.637 kg Universi ty of [facility] BMI 2022-07-06 05:20:00 30.83 kg/m2 [facility]i ty of [facility] Respiratory rate 2022-07-06 05:01:00 16 /min Univ ersity of [facility] Systolic blood 2022-06-23 19:46:00 135 mm[Hg] Univer sity of pressure [facility] Diastolic blood 2022-06-23 19:46:00 85 mm[Hg] Unive rsity of pressure [facility] Heart rate 2022-06-23 19:46:00 102 /min Universi ty of [facility] Body temperature 2022-06-23 19:46:00 36.11 Nabila Univ [...] 2022-04-14 16:55:00 36.78 Nabila [facility] [place] [facility] Respiratory rate 2022-04-14 16:55:00 16 [...] 2022-03-31 15:59:00 82 /min [facility] Body temperature 2022-03-31 15:59:00 37.11 Nabila [facility] [place] [facility] Respiratory rate 2022-03-31 15:59:00 18 /min [facility] [place] [facility] Body height 2022-03-31 15:59:00 167.6 cm [facility] [place] [facility] Body weight 2022-03-31 15:59:00 76.885 [...] 2022-02-24 16:18:00 167.6 cm [facility] [place] [facility] Body weight 2022-02-24 16:18:00 69.673 kg [facility] BMI 2022-02-24 16:18:00 24.79 kg/m2 [facility] Systolic blood 2022-02-10 19:32:00 135 mm[Hg] Univer sity of [facility] Diastolic blood 2022-02-10 19:32:00 90 mm[Hg] Unive rsity of [facility] Heart rate 2022-02-10 19:32:00 130 /min [facility] Body temperature 2022-02-10 19:32:00 36.89 Nabila [facility] [place] [facility] Respiratory rate 2022-02-10 19:32:00 20 /min [facility] [place] [facility] Body height 2022-02-10 19:32:00 167.6 cm [facility] [place] [facility] Body weight 2022-02-10 19:32:00 71.215 kg [facility] BMI 2022-02-10 19:32:00 25.34 kg/m2 [facility] [place] [facility] Systolic blood 2022-01-27 15:32:00 127 mm[Hg] Univer sity of [facility] Diastolic blood 2022-01-27 15:32:00 77 mm[Hg] Unive rsity of [facility] Heart rate 2022-01-27 15:32:00 99 /min [facility] Body temperature 2022-01-27 15:32:00 36.22 Nabila [facility] [place] [facility] Respiratory rate 2022-01-27 15:32:00 20 /min [facility] [place] [facility] Body height 2022-01-27 15:32:00 167.6 cm [facility] Body weight 2022-01-27 15:32:00 70.988 kg [facility] BMI 2022-01-27 15:32:00 25.26 kg/m2 [facility] Systolic blood 2021-12-23 14:24:00 118 mm[Hg] Univer sity of [facility] [place] [facility] Diastolic blood 2021-12-23 14:24:00 77 mm[Hg] Unive rsity of [facility] Heart rate 2021-12-23 14:24:00 87 /min [facility] [place] [facility] Body temperature 2021-12-23 14:24:00 37 Nabila [facility] [place] [facility] Respiratory rate 2021-12-23 14:24:00 18 /min [facility] [place] [facility] Body height 2021-12-23 14:24:00 167.6 cm [facility] [place] [facility] Body weight 2021-12-23 14:24:00 70.761 kg [facility] BMI 2021-12-23 14:24:00 25.18 kg/m2 [facility] [place] [facility] Systolic blood 2021-12-09 14:24:00 118 mm[Hg] Univer sity of [facility] Diastolic blood 2021-12-09 14:24:00 79 mm[Hg] Unive rsity of [facility] Heart rate 2021-12-09 14:24:00 88 /min [facility] Body temperature 2021-12-09 14:24:00 36.67 Nabila [facility] [place] [facility] Respiratory rate 2021-12-09 14:24:00 16 /min [facility] [place] [facility] Body height 2021-12-09 14:24:00 167.6 cm [facility] Body weight 2021-12-09 14:24:00 72.53 kg [facility] [place] [facility] BMI 2021-12-09 14:24:00 25.81 kg/m2 [facility] Oxygen saturation in 2021-12-09 14:24:00 97 /min University of Arterial blood by [facility] Pulse oximetry Branch Systolic blood 2021-10-12 18:17:00 124 mm[Hg] Univer sity of [facility] Diastolic blood 2021-10-12 18:17:00 90 mm[Hg] Unive rsity of [facility] Heart rate 2021-10-12 18:17:00 112 /min [facility] Body temperature 2021-10-12 18:17:00 37.11 Nabila [facility] Respiratory rate 2021-10-12 18:17:00 20 /min [facility] Body height 2021-10-12 18:17:00 167.6 cm [facility] Body weight 2021-10-12 18:17:00 68.04 kg [facility] BMI 2021-10-12 18:17:00 24.21 kg/m2 [facility] Procedures Procedure Date / Time Performing Clinician Source Performed PROTEIN CREAT RATIO 2022-07-29 05:00:00 Kasey Blanco [facility] URINE RANDOM [facility] CBC WITH DIFF 2022-07-25 10:37:00 Kasey Blanco [facility] COMP. METABOLIC PANEL 2022-07-25 03:06:00 Kasey Blanco [facility] ([id number]) [facility] CBC WITH DIFF 2022-07-25 03:06:00 Kasey Blanco [facility] PROTEIN CREAT RATIO 2022-07-25 03:06:00 Kasey Blanco [facility] URINE RANDOM [facility] CBC WITH DIFF 2022-07-22 08:27:00 Adum, Hetal Mario [facility] CBC WITH DIFF 2022-07-22 08:27:00 Adum, Hetal Mario [facility] SECTION 2022-07-21 18:36:00 Adum, Hetal Mario [facility] SECTION 2022-07-21 18:36:00 Adum, Hetal Mario [facility] URINE DRUG (IMMUNOASSAY) 2022-07-21 18:12:00 Adum, Hetal Avendano [facility] SCREEN W/O REFLEX URINE DRUG (IMMUNOASSAY) 2022-07-21 18:12:00 Adum, Hetal Avendano [facility] SCREEN W/O REFLEX CBC WITH DIFF 2022-07-21 16:52:00 Adum, Hetal Mario [facility] HEPATITIS B SURFACE 2022-07-21 16:52:00 Adum, Hetal Mario [facility] ANTIGEN [facility] HB ABO GROUPING 2022-07-21 16:52:00 Adum, Hetal Mario [facility] ADC OR KATALINA ONLY - 2022-07-21 16:52:00 Adum, Hetal Mario [facility] HIV 1/2 AG-AB WITH 2022-07-21 16:52:00 Adum, Hetal Mario [facility] REFLEX [facility] CBC WITH DIFF 2022-07-21 16:52:00 Adum, Hetal Mario [facility] HEPATITIS B SURFACE 2022-07-21 16:52:00 Adum, Hetal Mario [facility] ANTIGEN [facility] HB ABO GROUPING 2022-07-21 16:52:00 Adum, Hetal Mario [facility] ADC OR KATALINA ONLY - 2022-07-21 16:52:00 Adum, Hetal Mario [facility] HIV 1/2 AG-AB WITH 2022-07-21 16:52:00 Adum, Hetal Mario [facility] REFLEX [facility] RHO (D) IMMUNE GLOBULIN 2022-07-21 16:52:00 Tony Blanco [facility] ADC ONLY - FERN TEST 2022-07-21 16:06:00 Adum, Hetal Mario [facility] ADC ONLY - FERN TEST 2022-07-21 16:06:00 Adum, Hetal Mario [facility] CONSENT/REFUSAL FOR 2022-07-21 15:31:39 Doctor Unassigned, No [facility] [place] [facility] Name [facility] CONSENT/REFUSAL FOR 2022-07-21 15:31:39 Doctor Unassigned, No [facility] [place] [facility] Name [facility] URINALYSIS 2022-07-17 16:35:00 Adum, Hetal Mario [facility] ADC ONLY - FERN TEST 2022-07-17 16:35:00 Adum, Hetal Mario [facility] URINALYSIS 2022-07-11 06:30:00 Austin Arzola [place] o [facility] ADC CLC OR LCC ONLY - 2022-07-11 06:30:00 Austin Arzola [facility] NOTICE OF PRIVACY 2022-07-11 03:43:30 Doctor Unassigned, No [facility] PRACTICES [facility] CONSENT/REFUSAL FOR 2022-07-11 03:43:01 Doctor Unassigned, No [facility] DIAGNOSIS AND TREATMENT [facility] ASSIGNMENT OF BENEFITS 2022-07-11 03:42:40 Doctor Unassigned, No [facility] POCT URINALYSIS 2022-07-08 19:23:00 Antonette Solano [facility] L&D VISIT 2022-07-06 05:01:00 Doctor Unassigned, No [facility] (NON-DELIVERED) [facility] ASSIGNMENT OF BENEFITS 2022-07-06 04:55:57 Doctor Unassigned, No [facility] POCT URINALYSIS 2022-06-23 19:48:00 Antonette Solano [facility] POCT URINALYSIS 2022-06-09 18:04:00 Antonette Solano [facility] TDAP VACCINE, >11 YRS, 2022-05-26 15:59:59 Tushar Lan [facility] GLUCOSE 1 HOUR POST 2022-05-12 21:16:00 Tushar Lan [facility] CBC WITH DIFF 2022-05-12 21:16:00 Tushar Lan [facility] POCT URINALYSIS 2022-05-12 20:18:00 Antonette Solano [facility] POCT URINALYSIS 2022-04-28 17:24:00 Antonette Solano [facility] SECOND AND THIRD 2022-04-14 15:44:00 Antonette Solano [facility] TRIMESTER ULTRASOUND [facility] POCT URINALYSIS 2022-03-31 16:02:00 Antonette Solano [facility] POCT URINALYSIS 2022-03-10 00:00:00 Antonette Solano [facility] POCT URINALYSIS 2022-02-24 16:30:00 Antonette Solano [facility] POCT URINALYSIS 2022-02-10 00:00:00 Antonette Solano [facility] POCT URINALYSIS 2022-01-27 15:33:00 Antonette Solano [facility] REPORT OF 2021-12-23 05:01:00 Doctor Unassigned, No [facility] POCT TEST 2021-12-23 00:00:00 Antonette Solano [facility] POCT URINALYSIS W/O 2021-12-23 00:00:00 Antonette Solano [facility] US FIRST 2021-12-14 21:24:20 Sara Snyder [facility] TRIMESTER LESS THAN 14 Medical [facility] WEEKS WITH TRANSVAGINAL ASSIGNMENT OF BENEFITS 2021-12-14 19:54:43 Doctor Unassigned, No [facility] POCT TEST 2021-12-09 00:00:00 Sara Snyder [facility] POCT TEST 2021-10-12 18:22:00 Tushar Lan [facility] Encounters Start End Encounter Admission Attending Care Care Encounter Source Date/Time Date/Time Type Type Clinicians Facility Department ID 2022-07-24 Outpatient P KASEY BLANCO [facility] [id number] Univers 07:39:17 KASEY BLANCO [facility] 2022-07-11 Outpatient X [facility] [id number] Univers 03:19:31 [facility] 2020-12-27 Emergency [facility] [id number] Univers 22:10:58 [facility] 2020-12-27 Emergency [facility] [id number] Univers 22:10:57 ity of [facility] 2020-12-27 Outpatient P [facility] [id number] Univers 19:19:43 ity of [facility] 2020-12-27 Outpatient P [facility] [id number] Univers 19:19:36 ity of [facility] 2022-12-08 2022-12-08 Outpatient R AKINSIPE, [facility] [id number] Univers 14:45:00 14:45:00 TUSHAR ity o f [facility] 2022-09-07 2022-09-07 Outpatient R AKINSIPE, [facility] [id number] Univers 15:15:00 16:22:49 TUSHAR ity o f [facility] 2022-08-29 2022-08-29 [facility] 1.2.840.114 [id number] Univers 00:00:00 00:00:00 Tushar C [employer] INSPECTOR 350.1.13.10 ity of REGIONAL 4.2.7.2.686 Jamal as MATERNAL [id number] Med ical & CHILD [address] [place] [address] 2022-08-29 2022-08-29 Telephone [facility] 1.2.840.114 [id number] Univers 00:00:00 00:00:00 Tushar C MINERAL RESOURCES INSPECTOR 350.1.13.10 ity of REGIONAL 4.2.7.2.686 Jamal as MATERNAL [id number] [facility] ical & CHILD [address] [place] [address] 2022-08-12 2022-08-12 Outpatient R AKINSIPE, [facility] [id number] Univers 10:00:00 11:16:38 TUSHAR ity o [facility] 2022-08-12 2022-08-12 Routine Akinpe, [facility] [id number] Univers 10:00:00 11:16:38 Tushar C MINERAL RESOURCES INSPECTOR 350.1.13.10 ity of Visit REGIONAL 4.2.7.2.686 Jamal as MATERNAL [id number] [facility] ical & CHILD [address] [place] [address] 2022-08-01 2022-08-01 Nurse Visit, [facility] Nurse [facility] 1.2 .840.114 [id number] Univers 09:30:00 10:21:06 Visit OliverjohnathanStevenTushar C MINERAL RESOURCES INSPECTOR 350.1.13. 10 ity of [facility] 4.2.7.2.686 Jamal as MATERNAL [id number] [facility] & [address] 2022-08-01 2022-08-01 Outpatient R RIKY [facility] [id number] Univers 09:30:00 09:30:00 TUSHAR ity o f [facility] 2022-08-01 2022-08-01 Patient Riky [facility] [id number] Univers 00:00:00 00:00:00 Secure Msg Tushar C MINERAL RESOURCES INSPECTOR 350.1.13.10 ity [facility] 4.2.7.2.686 Jamal as MATERNAL [id number] [facility] & [address] 2022-08-01 2022-08-01 Patient Riky [facility] 1.2.196.625 [id number] Univers 00:00:00 00:00:00 Secure Msg Tushar C MINERAL RESOURCES INSPECTOR 350.1.13.10 ity of [facility] 4.2.7.2.686 Jamal as MATERNAL [id number] [address] 2022-07-28 2022-07-29 Outpatient P JR [facility] [id number] Univers 20:06:00 12:45:00 HETAL rizo [facility] 2022-07-28 2022-07-29 [facility] 1.2 .840.114 [id number] Univers 20:06:00 12:45:00 Encounter Hetal Norris 350.1.13.10 ity [facility] 4.2.7.2.686 [id number] [address] 2022-07-27 2022-07-27 Nurse MOSHE Nova 1.2.840.114 [id number] Univers 00:00:00 00:00:00 Triage Patt ESPINAL 350.1.13.10 it y of [facility] 4.2.7.2.686 Jamal as [id number] [facility] 019 Branch 2022-07-26 2022-07-26 [facility] 1.2.840.114 [id number] Univers 00:00:00 00:00:00 Tushar Lund MIN[employer]AL RESOURCES INSPECTOR 350.1.13.10 ity [facility] 4.2.7.2.686 Jamal as MATERNAL [id number] [facility] ical & CHILD [address] [place] [address] 2022-07-24 2022-07-25 Outpatient P KASEY BLANCO [facility] G YN [id number] Univers 09:28:00 12:30:00 TONY BLANCOL ity [facility] 2022-07-24 2022-07-25 [facility] 1.2.840.114 [id number] Univers 09:28:00 12:30:00 Encounter sKasey 350.1.13.10 ity [facility] 4.2.7.2.686 [facility] [id number] [facility] 083 Branch 2022-07-21 2022-07-23 Inpatient X [facility] [id number] Univers 10:37:00 13:45:00 HETAL itspenser of [facility] 2022-07-21 2022-07-23 [facility] 1.2.840.114 [id number] Univers 10:37:00 13:45:00 Encounter Hetal HELLER 350.1.13.10 ity of [place] 4.2.7.2.686 [facility] [id number] [facility] 083 Branch 2022-07-21 2022-07-21 Surgery [facility] 1.2.840.114 [id number] Univers 12:35:00 14:27:00 Hetal HELLER 350.1.13.10 ity of [place] 4.2.7.2.686 [facility] [id number] [facility] 013 Branch 2022-07-21 2022-07-21 [facility] [id number] Univers 10:45:00 10:45:00 TUSHAR ity o f [facility] 2022-07-19 2022-07-19 Case Ad, [facility] 1.2.840.114 [id number] Univers 00:00:00 00:00:00 Management Hetal PEGUERORAVI 350.1.13.10 ity of [place]2.7.2.686 [place] [facility] [id number] Hi dical [facility], [facility] 2022-07-17 2022-07-17 Outpatient X [facility], [facility] [id number] Univers 10:38:00 12:40:00 HETAL ity of [facility] 2022-07-17 2022-07-17 Emergency [facility] [id number] Univers 10:38:00 12:40:00 Hetal Fabiano HELLER 350.1.13.10 ity [facility] 4.2.7.2.686 [place] [id number] [address] 2022-07-10 2022-07-11 Outpatient X AUSTIN ARZOLA [facility] [id number] Univers 22:46:00 03:10:00 ity of [facility] 2022-07-10 2022-07-11 Emergency Austin Arzola [facility] 1.2.840.114 [id number] Univers 22:46:00 03:10:00 Felix [facility] 350.1.13.10 i ty [facility] 4.2.7.2.686 [place] [id number] [address] 2022-07-11 2022-07-11 Telephone [facility] 1.2.840.114 [id number] Univers 00:00:00 00:00:00 Tushar Lund MIN[employer]AL RESOURCES INSPECTOR 350.1.13.10 ity of [facility] 4.2.7.2.686 Jamal as MATERNAL [id number] [facility] ical & CHILD [address] [place] [address] 2022-07-08 2022-07-08 [facility] [id number] Univers 14:15:00 14:41:47 TUSHAR ity o f [facility] 2022-07-08 2022-07-08 Routine Akinsipe, [facility] [id number] [id number] Univers 14:15:00 14:41:47 Tushar C MINERAL RESOURCES INSPECTOR 350.1.13.10 ity of Visit [facility] 4.2.7.2.686 Jamal as MATERNAL [id number] [facility] ical & CHILD [address] [place] [address] 2022-07-06 2022-07-06 Outpatient P ADUM, [facility] [id number] Univers 00:06:00 04:42:00 HETAL ity of [facility] 2022-07-06 2022-07-06 Emergency Adum, [facility] 1.2.499.131 [id number] Univers 00:06:00 04:42:00 Hetal Fabiano [place] 350.1.13.10 ity of [place] 4.2.7.2.686 [place] [facility] [id number] [facility] [address] [place] 2022-07-06 2022-07-06 Orders Doctor MOSHE 1.2.840.114 [id number] Univers 00:00:00 00:00:00 Only Unassigned, TEDDY 350.1.13.10 ity of [facility] 4.2.7.2.686 Jamal as [id number] [facility] [address] [place] 2022-07-05 2022-07-05 Orders Doctor MOSHE 1.2.840.114 [id number] Univers 00:00:00 00:00:00 Only Unassigned, TEDDY 350.1.13.10 ity of [place] [facility] 4.2.7.2.686 Jamal as [id number] [address] 2022-06-23 2022-06-23 Outpatient R AKINSIPE, [facility] [id number] Univers 14:45:00 15:08:35 TUSHAR ity o f [facility] 2022-06-23 2022-06-23 Routine Akinsipe, [facility] [id number] Univers 14:45:00 15:08:35 Tushar C MINERAL RESOURCES INSPECTOR 350.1.13.10 ity of Visit [facility] 4.2.7.2.686 Jamal as MATERNAL [id number] Med ical & CHILD [address] [place] [address] 2022-06-16 2022-06-16 Outpatient R AKINSIPE, [facility] [id number] Univers 13:00:00 13:00:00 TUSHAR ity o f [facility] 2022-06-09 2022-06-09 Outpatient R AKINSIPE, [facility] [id number] Univers 12:45:00 13:24:30 TUSHAR ity o f [facility] 2022-06-09 2022-06-09 Routine Akinsipe, [facility] [id number] Univers 12:45:00 13:24:30 Tushar C MINERAL RESOURCES INSPECTOR 350.1.13.10 ity of Visit REGIONAL 4.2.7.2.686 Jamal as MATERNAL [id number] [facility] & [address] 2022-06-02 2022-06-02 Nurse Visit, Satishp Nurse [facility] 1. .840.114 [id number] Univers 10:30:00 10:42:00 Visit Akinsipe, Tushar C MINERAL RESOURCES INSPECTOR 350.1.13. 10 ity of REGIONAL 4.2.7.2.686 Jamal as MATERNAL [id number] [facility] & [address] 2022-06-02 2022-06-02 Outpatient R AKINSIPE, [facility] [id number] Univers 10:30:00 10:30:00 TUSHAR ity o f [facility] 2022-05-26 2022-05-26 Outpatient R AKINSIPE, [facility] [id number] Univers 10:30:00 11:07:20 TUSHAR ity o f [facility] 2022-05-26 2022-05-26 Routine Akinsipe, [facility] [id number] Univers 10:30:00 11:07:20 Tushar C MINERAL RESOURCES INSPECTOR 350.1.13.10 ity of Visit REGIONAL 4.2.7.2.686 Jamal as MATERNAL [id number] [facility] & CHILD [address] [place] [address] 2022-05-19 2022-05-19 [facility] 1.2 .840.114 [id number] Univers 10:30:00 11:03:10 Visit AkinSteven bryantilola C MINERAL RESOURCES INSPECTOR 350.1.13. 10 ity of REGIONAL 4.2.7.2.686 Jamal as MATERNAL [id number] [facility]ILD [address] [place] [address] 2022-05-19 2022-05-19 Outpatient R AKINSIPE, [facility] [id number] Univers 10:30:00 10:30:00 TUSHAR ity o [facility] 2022-05-12 2022-05-12 Outpatient R AKINSIPE, [facility] [id number] Univers 14:45:00 15:46:52 TUSHAR [facility]y o [facility] [facility] 2022-05-12 2022-05-12 Routine Akinsipe, [facility] 1.2.193.851 [id number] Univers 14:45:00 15:46:52 Tushar C MINERAL RESOURCES INSPECTOR 350.1.13.10 ity of Visit REGIONAL 4.2.7.2.686 Jamal as MATERNAL [id number] [facility] & CHILD [address] [place] [address] 2022-05-05 2022-05-05 Nurse Visit, Neftali Nurse [facility] 1.2 .840.114 [id number] Univers 10:30:00 10:45:51 Visit Mallybernyjohnathan Tushar C MINERAL RESOURCES INSPECTOR 350.1.13. 10 ity of REGIONAL 4.2.7.2.686 Jamal as MATERNAL [id number] [facility] & CHILD [address] [place] [address] 2022-05-05 2022-05-05 Outpatient R AKINSIPE, [facility] [id number] Univers 10:30:00 10:30:00 TUSHAR ity o [facility] 2022-04-28 2022-04-28 Outpatient R AKINSIPE, [facility] [id number] Univers 11:00:00 11:44:12 TUSHAR ity o f [facility] 2022-04-28 2022-04-28 Routine Akinsipe, [facility] 1.2.399.941 [id number] Univers 11:00:00 11:44:12 Tushar C MINERAL RESOURCES INSPECTOR 350.1.13.10 ity of Visit REGIONAL 4.2.7.2.686 Jamal as MATERNAL [id number] [facility] & CHILD [address] [place] [address] 2022-04-21 2022-04-21 Nurse Visit, [facility] Nurse [facility] 1.2 .840.114 [id number] [facility] 10:00:00 10:30:36 Visit Antonette Solano MINERAL RESOURCES INSPECTOR 350.1.13.1 0 ity of REGIONAL 4.2.7.2.686 Jamal as MATERNAL [id number] [facility] & CHILD [address] [place] [address] 2022-04-21 2022-04-21 Outpatient R ENE [facility] [id number] Univers 10:00:00 10:00:00 ANTONETTE [facility] 2022-04-14 2022-04-14 Outpatient R ASYA [facility] [id number] Univers 09:15:00 11:39:36 SHEREEN [facility] 2022-04-14 2022-04-14 Routine Risk, Stn-Mjfgn-Ct/High [facility] 1. 2.840.114 [id number] Univers 09:15:00 11:39:36 Shereen Travis MINERAL RESOURCES INSPECTOR 350.1.13.10 ity of Visit REGIONAL 4.2.7.2.686 Jamal as MATERNAL [id number] [facility] & [address] 2022-04-14 2022-04-14 [facility] 1.2 .840.114 [id number] [facility] 10:30:00 10:45:00 Visit Akinsijohnathan, Tushar C MINERAL RESOURCES INSPECTOR 350.1.13. 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, [facility] 1.2 .840.114 [id number] Univers 09:30:00 10:39:28 Visit Shereen Travis MINERAL RESOURCES INSPECTOR 350.1.13.10 ity of REGIONAL 4.2.7.2.686 Jamal as MATERNAL [id number] Med ical & CHILD 369 [facility] 2022-04-14 2022-04-14 Outpatient R RIKY [facility] [id number] Univers 10:30:00 10:30:00 TUSHAR darrius lauren [facility] 2022-04-14 2022-04-14 Case Ene [facility] 1.2.840.114 [id number] Univers 00:00:00 00:00:00 Management Antonette Millard MINERAL RESOURCES INSPECTOR 350.1.13.10 ity of REGIONAL 4.2.7.2.686 Jamal as MATERNAL [id number] Med ical & CHILD [address] [place] [address] 2022-04-07 2022-04-07 Nurse Visit, [facility] Nurse [facility] 1.2 .840.114 [id number] Univers 13:00:00 13:13:39 Visit Tushar Lan MINERAL RESOURCES INSPECTOR 350.1.13. 10 ity of REGIONAL 4.2.7.2.686 Jamal as MATERNAL [id number] Med ical & CHILD [address] [place] [address] 2022-04-07 2022-04-07 Outpatient R RIKY [facility] [id number] Univers 13:00:00 13:00:00 TUSHAR katz xin [facility] 2022-04-07 2022-04-07 Telephone Riky [facility] 1.2.840.114 [id number] Univers 00:00:00 00:00:00 Tushar Lund MINERAL RESOURCES INSPECTOR 350.1.13.10 ity of REGIONAL 4.2.7.2.686 Jamal as MATERNAL [id number] Med ical & CHILD [address] [place] [address] 2022-03-31 2022-03-31 Routine Risk, Pjr-Yhfrx-Uh/High [facility] 1. 2.840.114 [id number] Univers 09:45:00 10:58:49 Edwin Cage MINERAL RESOURCES INSPECTOR 350.1.13.10 ity of Visit [facility] 4.2.7.2.686 Jamal as MATERNAL [id number] Med ical & CHILD [address] [place] [address] 2022-03-31 2022-03-31 Outpatient R SHANKAR [facility] [id number] Univers 09:45:00 10:58:49 EDWIN [facility] 2022-03-24 2022-03-24 Nurse Visit, Neftali Nurse [facility] 1.2 .840.114 [id number] Univers 10:00:00 10:00:00 Visit Tushar aLn MINERAL RESOURCES INSPECTOR 350.1.13. 10 ity of REGIONAL 4.2.7.2.686 Jamal as MATERNAL [id number] [facility] & CHILD [address] [place] [address] 2022-03-24 2022-03-24 Outpatient R RIKY [facility] [id number] Univers 10:00:00 09:55:01 TUSHAR rizo o f [facility] 2022-03-15 2022-03-15 Telephone Mallyjohnathan [facility] 1.2.840.114 [id number] Univers 00:00:00 00:00:00 Tushar Lund MINERAL RESOURCES INSPECTOR 350.1.13.10 ity of REGIONAL 4.2.7.2.686 Jamal as MATERNAL [id number] [address] 2022-03-10 2022-03-10 Outpatient R SHANKAR [facility] [id number] Univers 11:00:00 11:45:31 EDWIN [facility] 2022-03-10 2022-03-10 Routine Risk, Tsb-Dcxry-Wk/High [facility] 1. 2.840.114 [id number] Univers 11:00:00 11:45:31 Edwin Cage MINERAL RESOURCES INSPECTOR 350.1.13.10 ity of Visit REGIONAL 4.2.7.2.686 Jamal as MATERNAL [id number] [address] 2022-03-10 2022-03-10 Outpatient R [facility] [id number] Univers 10:30:00 10:30:00 ity [facility] 2022-03-07 2022-03-07 Telephone Riky [facility] 1.2.840.114 [id number] Univers 00:00:00 00:00:00 Tushar Lund MINERAL RESOURCES INSPECTOR 350.1.13.10 ity of REGIONAL 4.2.7.2.686 Jamal as MATERNAL [id number] [facility] & CHILD [address] [place] [address] 2022-03-07 2022-03-07 Case [facility] 1.2.840.114 [id number] Univers 00:00:00 00:00:00 Management Edwin Blas MINERAL RESOURCES INSPECTOR 350.1.13.10 ity of REGIONAL 4.2.7.2.686 Jamal as MATERNAL [id number] [facility] & CHILD [address] [place] [address] 2022-02-24 2022-02-24 Outpatient [facility]ica [facility] [id number] Univers 10:00:00 11:04:18 EDWIN [facility] 2022-02-24 2022-02-24 Routine Risk, Mck-Rfnap-Uc/High [facility] 1. 2.840.114 [id number] Univers 10:00:00 11:04:18 Edwin Cage MINERAL RESOURCES INSPECTOR 350.1.13.10 ity of Visit REGIONAL 4.2.7.2.686 Jamal as MATERNAL [id number] [facility] & CHILD [address] [place] [address] 2022-02-10 2022-02-10 Outpatient Angelica CAGE [facility] [id number] Univers 13:15:00 13:59:26 EDWIN [facility] 2022-02-10 2022-02-10 Routine Risk, Huh-Viffb-Iu/High [facility] 1. 2.840.114 [id number] Univers 13:15:00 13:59:26 Edwin Cage MINERAL RESOURCES INSPECTOR 350.1.13.10 ity of Visit REGIONAL 4.2.7.2.686 Jamal as MATERNAL [id number] [facility] & CHILD [address] [place] [address] 2022-01-27 2022-01-27 Outpatient Angelica [facility] [id number] Univers 09:00:00 10:00:53 [facility]22-01-27 2022-01-27 Routine Risk, Oyx-Vqtaa-Op/High [facility] 1. 2.840.114 [id number] Univers 09:00:00 10:00:53 CageEdwin MINERAL RESOURCES INSPECTOR 350.1.13.10 ity of Visit [facility] 4.2.7.2.686 Jamal as MATERNAL [id number] [facility] ical & CHILD [address] [place] [address] 2022-01-10 2022-01-10 Case Ene [facility] 1.2.840.114 [id number] Univers 00:00:00 00:00:00 Management Antonette Millard MINERAL RESOURCES INSPECTOR 350.1.13.10 ity of REGIONAL 4.2.7.2.686 Jamal as MATERNAL [id number] [facility] & CHILD [address] [place] [address] 2022-01-06 2022-01-06 Sewing Supervisor Ultras[facility], [facility] 1.2 .840.114 [id number] Univers 15:15:00 15:45:00 Visit David Cooper MINERAL RESOURCES INSPECTOR 350.1.13.10 ity of [facility] 4.2.7.2.686 Jamal as MATERNAL [id number] [facility] CHILD [address] [facility] 2022-01-06 2022-01-06 Outpatient P BALBIR [facility] [id number] Univers 15:15:00 [facility] 2021-12-30 Outpatient R [facility] B [id number] Univers 10:00:00 10:00:00 SARA SNYDER [facility] 2021-12-23 2021-12-23 Outpatient R ENE [facility] [id number] Univers 09:15:00 10:41:00 ANTONETTE [facility] 2021-12-23 2021-12-23 Initial Provider, Neftali [facility] 1 .2.840.114 [id number] Univers 09:15:00 10:41:00 Niki Ralph MINERAL RESOURCES INSPECTOR 350.1.13.1 0 ity of Visit Antonette Solano [facility] 4.2.7.2.686 [place] MATERNAL [id number] Med ical & CHILD 107 [facility] 2021-12-23 2021-12-23 Orders Doctor MOSHE 1.2.840.114 [id number] Univers 00:00:00 00:00:00 Only Unassigned, TEDDY 350.1.13.10 ity of [place] [facility] 4.2.7.2.686 Jamal as [id number] [facility] [address] 2021-12-17 2021-12-17 Case [facility] 1.2.840.114 [id number] Univers 00:00:00 00:00:00 Management Sara DONALDSON 350.1.13.10 ity of WOMEN'S 4.2.7.2.686 [facility] [id number] [facility] [address] 2021-12-14 2021-12-14 Outpatient R [facility] B [id number] Univers 14:55:04 23:59:00 SARA SNYDER [facility] 2021-12-14 2021-12-14 [facility] 1.2.840.114 [id number] Univers 14:55:04 23:59:00 Encounter Sara HELLER 350.1.13.10 ity of [place] 4.2.7.2.686 [facility] [id number] [facility] [address] 2021-12-14 2021-12-14 Orders Doctor MOSHE 1.2.840.114 [id number] Univers 00:00:00 00:00:00 Only Unassigned, TEDDY 350.1.13.10 ity of [place] [facility] 4.2.7.2.686 Jamal as [id number] [facility] [address] 2021-12-09 2021-12-09 Outpatient R [facility] B [id number] Univers 09:00:00 09:43:20 [facility] 2021-12-09 2021-12-09 Initial [facility] 1.2.840.114 [id number] Univers 09:00:00 09:43:20 Sara DONALDSON 350.1.13.10 i ty of Visit WOMEN'S 4.2.7.2.686 [facility] [phone] [address] 2021-10-12 2021-10-12 Office Riky, [facility] 1.2.486.565 [id number] Univers 13:00:00 13:34:47 Visit Tushar C MINERAL RESOURCES INSPECTOR 350.1.13.10 ity of [facility] 4.2.7.2.686 Jamal as MATERNAL [id number] [facility] ical & CHILD [address] [place] [address] 2021-10-12 2021-10-12 Outpatient R AKINBERNYPE, [facility] [id number] Univers 13:00:00 13:34:47 TUSHAR katz [facility] 2021-10-12 2021-10-12 [facility] [id number] Univers 13:00:00 13:00:00 TUSHAR katz [facility] 2021-10-12 2021-10-12 Outpatient R AKINSI, [facility] [id number] Univers 13:00:00 13:00:00 TUSHAR rizo [facility] 2021-10-12 2021-10-12 Orders Doctor MESA 1.2.840.114 [id number] Univers 00:00:00 00:00:00 Only Unassigned, TEDDY 350.1.13.10 ity of [place] [facility] 4.2.7.2.686 Jamal as [id number] [address] 2021-09-28 2021-09-28 Outpatient R AKINSIPE, [facility] [id number] Univers 12:45:00 14:31:13 TUSHAR rizo o [facility] 2021-09-28 2021-09-28 [facility] 1.2.785.272 [id number] Univers 12:45:00 14:31:13 Visit Tushar Lund MINERAL RESOURCES INSPECTOR 350.1.13.10 ity of [facility] 4.2.7.2.686 Jamal as MATERNAL [id number] [facility] ical & CHILD [address] [place] [address] 2021-08-05 2021-08-05 Outpatient R JAM SAUNDERS [facility] [id number] Univers 16:15:00 16:15:00 ity [facility] 2021-06-18 2021-06-18 Outpatient R THERON [facility] [id number] Univers 11:00:00 11:00:00 [place] ity [facility] 2021-06-15 2021-06-15 Orders Doctor MOSHE 1.2.840.114 [id number] Univers 00:00:00 00:00:00 Only Unassigned, TEDDY 350.1.13.10 ity of [place] [facility] 4.2.7.2.686 Jamal as [id number] [facility] [address] 2021-06-15 2021-06-15 Patient Doctor MOSHE 1.2.840.114 [id number] Univers 00:00:00 00:00:00 Secure Msg Unassigned, TEDDY 350.1.13.10 ity of [place] [facility] 4.2.7.2.686 Jamal as [id number] [facility] [address] [place] 2021-03-09 2021-03-09 Outpatient R RIKY [facility] [id number] Univers 14:00:00 14:00:00 TUSHAR rizo o f [facility] 2021-03-02 2021-03-02 Telephone [facility] 1.2.840.114 [id number] Univers 00:00:00 00:00:00 Tushar Lund MINERAL RESOURCES INSPECTOR 350.1.13.10 ity of [facility] 4.2.7.2.686 Jamal as MATERNAL [id number] Med ical & CHILD [address] [place] [address] 2021-02-12 2021-02-12 [facility] 1.2.783.953 [id number] Univers 00:00:00 00:00:00 Ernesto Rosario MINERAL RESOURCES INSPECTOR 350.1.13.10 it y of [facility] 4.2.7.2.686 Jamal as MATERNAL [id number] Med ical & CHILD [address] [place] [address] 2021-02-11 2021-02-11 Refjar[facility]o [facility] 1.2.972.483 [id number] Univers 00:00:00 00:00:00 Tushar C MINERAL RESOURCES INSPECTOR 350.1.13.10 ity of [facility] 4.2.7.2.686 Jamal as MATERNAL [id number] [facility] & CHILD [address] [place] [address] 2021-01-27 2021-01-27 [facility] 1.2.797.282 [id number] Univers 00:00:00 00:00:00 Ernesto N MINERAL RESOURCES INSPECTOR 350.1.13.10 it y of [facility] 4.2.7.2.686 Jamal as MATERNAL [id number] [facility] & CHILD [address] [place] [address] 2021-01-18 2021-01-18 Outpatient [facility] [id number] Univers 16:00:00 16:18:34 ERNESTO rizo [facility] 2021-01-18 2021-01-18 Office [facility] 1.2.617.662 [id number] Univers 15:59:18 16:18:34 Visit Ernesto Rosario MINERAL RESOURCES INSPECTOR 350.1.13.10 it y of [facility] 4..7.2.686 Jamal as MATERNAL [id number] [address] 2021-01-18 2021-01-18 [facility]patient [facility] [id number] Univers 16:00:00 16:00:00 ERNESTO rizo [facility] 2021-01-15 2021-01-15 Outpatient [facility] [id number] Univers 13:15:00 13:15:00 ERNESTO rizo [facility] 2020-12-11 2020-12-11 Telephone [facility] 1.2.840.114 [id number] Univers 00:00:00 00:00:00 Tushar C MINERAL RESOURCES INSPECTOR 350.1.13.10 ity of [facility] 4..7.2.686 Jamal as MATERNAL [id number] [address] 2020-10-20 2020-10-20 Office [facility] 1.2.840.114 [id number] Univers 13:30:06 14:12:47 Visit Roshunda R MINERAL RESOURCES INSPECTOR 350.1.13.10 ity of REGIONAL 4.2.7.2.686 Jamal as MATERNAL [id number] [facility] & CHILD [address] [place] [address] 2020-10-20 2020-10-20 Outpatient R RAMO [facility] [id number] Univers 13:30:00 13:30:00 NIKI riosy o f [facility] 2020-10-14 2020-10-14 Outpatient R RIKY [facility] [id number] Univers 15:00:00 15:00:00 TUSHAR ity o [facility] 2020-10-12 2020-10-12 Office [facility] 1.2.674.905 [id number] Univers 14:17:44 15:03:31 Visit Tushar Lund MINERAL RESOURCES INSPECTOR 350.1.13.10 ity of [facility] 4.2.7.2.686 Jamal as MATERNAL [id number] [address] 2020-10-12 2020-10-12 Outpatient R RIKY [facility] [id number] Univers 14:30:00 14:30:00 TUSHAR riosy o [facility] 2020-09-28 2020-09-28 Outpatient R RIKY [facility] [id number] Univers 08:30:00 08:30:00 TUSHAR riosy o f [facility] 2020-09-28 2020-09-28 Telephone [facility] 1.2.840.114 [id number] Univers 00:00:00 00:00:00 Ernesto Rosario MINERAL RESOURCES INSPECTOR 350.1.13.10 it y of REGIONAL 4.2.7.2.686 Jamal as MATERNAL [id number] [facility] & CHILD [address] [place] [address] 2020-09-25 2020-09-25 Telephone [facility] 1.2.840.114 [id number] Univers 00:00:00 00:00:00 Tushar Lund MINERAL RESOURCES INSPECTOR 350.1.13.10 ity of REGIONAL 4.2.7.2.686 Jamal as MATERNAL [id number] [facility] & CHILD [address] [place] [address] 2020-09-242020-09-24 Office [facility] 1.2.551.887 [id number] Univers 14:14:05 14:29:05 Visit Tushar Lund MINERAL RESOURCES INSPECTOR 350.1.13.10 ity of REGIONAL 4.2.7.2.686 Jamal as MATERNAL [id number] [facility] [address] 2020-09-24 2020-09-24 Outpatient R RIKY [facility] [id number] Univers 14:15:00 14:15:00 TUSHAR lauren [facility] 2020-09-08 2020-09-08 Outpatient Angelica PEACOCK [facility] [id number] Univers 16:00:00 16:00:00 ERNESTO [facility] 2020-08-18 2020-08-18 Routine [facility] 1.2.417.328 [id number] Univers 13:04:51 13:45:53 Tushar Lund MINERAL RESOURCES INSPECTOR 350.1.13.10 ity of Visit REGIONAL 4.2.7.2.686 Jamal as MATERNAL [id number] [address] 2020-08-18 2020-08-18 Outpatient R RIKY [facility] [id number] Univers 13:15:00 13:15:00 TUSHAR katz [facility] 2020-08-06 2020-08-06 Outpatient Angelica PEACOCK [facility] [id number] Univers 11:00:00 11:00:00 ERNESTO [facility] 2020-08-06 2020-08-06 Nurse Visit, Ang-Rmchp Nurse [facility] 1.2 .840.114 [id number] Univers 08:21:04 09:08:19 Visit Tushar Lan MINERAL RESOURCES INSPECTOR 350.1.13. 10 ity of REGIONAL 4.2.7.2.686 Jamal as MATERNAL [id number] [facility] & [address] 2020-08-06 2020-08-06 Outpatient R RIKY [facility] [id number] Univers 09:00:00 09:00:00 TUSHAR katz [facility] 2020-08-04 2020-08-04 Telephone [facility] 1.2.840.114 [id number] Univers 00:00:00 00:00:00 Ernesto Rosario MINERAL RESOURCES INSPECTOR 350.1.13.10 it y of [facility] 4.2.7.2.686 Jamal as MATERNAL [id number] Med ical & CHILD [address] [place] [address] 2020-08-01 2020-08-01 1.2.840.1 1.2.840.114 [id number] Univers 00:00:00 00:00:00 Encounter 16154.1.1 350.1.13.10 ity of 3.104.2.7 4.[place]7.2.696 [place] .[id number] [facility] 2020-07-26 2020-07-28 [facility] 1.2.840.11 [id number] Univers 14:30:00 17:45:00 Encounter [place] Arzola 350.1.13.10 ity of [place] 4.2.7.2.686 [facility] [place] [id number] [address] 2020-07-27 2020-07-27 Anesthesia [facility] 1.2.840.114 [id number] Univers 10:49:00 16:19:00 Event Dylan Heller 350.1.13.10 ity of [place] 4.2.7.2.686 [facility] [id number] [address] 2020-07-26 2020-07-26 Anesthesia [facility] 1.2.840.114 [id number] Univers 19:50:09 19:50:09 Event Angelica Heller 350.1.13.10 i ty of [place] 4.2.7.2.686 [facility] [place] [id number] [address] 2020-07-21 2020-07-21 Routine [facility] 1.2.827.443 [id number] Univers 12:46:13 13:17:55 Ernesto Rosario MINERAL RESOURCES INSPECTOR 350.1.13.10 i ty of Visit [facility] 4.2.7.2.686 Jamal as MATERNAL [id number] [facility] ical & CHILD [address] [place] [address] 2020-07-21 2020-07-21 Outpatient Angelica PEACOCK [facility] [id number] Univers 12:45:00 12:45:00 ERNESTOEMILY rizo [facility] 2020-07-12 2020-07-12 Hospital [facility] 1.2.840.114 [id number] Univers 02:00:00 03:20:00 Encounter Hetal Heller 350.1.13.10 ity [facility] 4.2.7.2.686 [place] [facility] [id number] [address] 2020-07-07 2020-07-07 Routine [facility] 1.2.671.440 [id number] Univers 10:39:36 11:15:55 Ernesto N MINERAL RESOURCES INSPECTOR 350.1.13.10 i ty of Visit [facility] 4.2.7.2.686 Jamal as MATERNAL [id number] [facility] & CHILD [address] [place] [address] 2020-07-07 2020-07-07 Outpatient R MADONNA [facility] [id number] Univers 10:45:00 10:45:00 ERNESTOEMILY rizo [facility] 2020-06-26 2020-06-26 Telephone [facility] 1.2.840.114 [id number] Univers 00:00:00 00:00:00 Tushar Lund MINERAL RESOURCES INSPECTOR 350.1.13.10 ity of [facility] 4.2.7.2.686 Jamal as MATERNAL [id number] [facility] & CHILD [address] [place] [address] 2020-06-26 2020-06-26 Patient Madonna VTSOLE 1.2.461.251 [id number] Univers 00:00:00 00:00:00 Secure Msg Ernesto Rosario MINERAL RESOURCES INSPECTOR 350.1.13.10 ity of [facility] 4.2.7.2.686 Jamal as MATERNAL [id number] [facility] & CHILD [address] [place] [address] 2020-06-23 2020-06-23 [facility] 1.2.311.245 [id number] Univers 14:10:30 14:38:56 Ernesto N [employer] RESOURCES INSPECTOR 350.1.13.10 i ty of Visit REGIONAL 4.2.7.2.686 Jamal as MATERNAL [phone] [facility] & [address] 2020-06-23 2020-06-23 Outpatient R [facility] [id number] Univers 14:15:00 14:15:00 ERNESTOEMILY rizo [facility] 2020-06-11 2020-06-11 Orders Doctor MOSHE 1.2.840.114 [id number] Univers 00:00:00 00:00:00 Only Unassigned, TEDDY 350.1.13.10 ity of [place] [facility] 4.2.7.2.686 Jamal as [id number] [address] 2020-06-09 2020-06-09 Routine Niki Ralph [facility] 1.2.840 .114 [id number] Univers 14:16:51 14:55:17 Ernesto Peacock [employer] RESOURCES INSPECTOR 350.1.13.10 ity of Visit REGIONAL 4.2.7.2.686 Jamal as MATERNAL [phone] [facility] & CHILD [address] [place] [address] 2020-06-09 2020-06-09 Outpatient R [facility] [id number] Univers 14:15:00 14:15:00 ERNESTOEMILY riosspenser [facility] 2020-06-02 2020-06-02 Orders Doctor MESA 1.2.840.114 [id number] Univers 00:00:00 00:00:00 Only Unassigned, TEDDY 350.1.13.10 ity of [place] [facility] 4.2.7.2.686 Jamal as [id number] [address] 2020-06-01 2020-06-01 Arcadio Lan [facility] 1.2.509.686 [id number] Univers 00:00:00 00:00:00 Tushar Lund MINERAL RESOURCES INSPECTOR 350.1.13.10 ity of REGIONAL 4.2.7.2.686 Jamal as MATERNAL [phone] [facility] & CHILD [address] [place] [address] 2020-05-21 2020-05-21 Sewing Supervisor Lab, [facility] 1.2.840. 114 [id number] Univers 12:58:26 13:13:26 Visit Tushar Lan MINERAL RESOURCES INSPECTOR 350.1.13. 10 ity of REGIONAL 4.2.7.2.686 Jamal as MATERNAL [id number] [facility] & [address] 2020-05-21 2020-05-21 Outpatient R RIKY [facility] [id number] Univers 13:00:00 13:00:00 TUSHAR rizo o f [facility] 2020-05-19 2020-05-19 Routine [facility] 1.2.490.048 [id number] Univers 12:45:26 13:11:32 Ernesto Rosario MINERAL RESOURCES INSPECTOR 350.1.13.10 i ty of Visit [facility] 4.2.7.2.686 Jamal as MATERNAL [id number] [address] 2020-05-19 2020-05-19 [facility] [id number] Univers 12:45:00 12:45:00 [facility] 2020-05-19 2020-05-19 [facility] 1.2.840.114 [id number] Univers 00:00:00 00:00:00 Outreach Jeffery MACDONALD 350.1.13.10 i ty of [facility] 4.2.7.2.686 [place] ROSEANNPAMELA [id number] [address] 2020-04-23 2020-04-23 Routine [facility] 1.2.863.007 [id number] Univers 15:54:18 16:11:16 Ernesto N MINERAL RESOURCES INSPECTOR 350.1.13.10 i ty of Visit [facility] 4.2.7.2.686 Jamal as MATERNAL [id number] [address] 2020-04-23 2020-04-23 Outpatient R MADONNA [facility] [id number] Univers 16:00:00 16:00:00 ERNESTO [facility] 2020-04-14 2020-04-14 Outpatient [facility] [id number] Univers 12:45:00 12:45:00 ERNESTO rizo [facility] 2020-04-09 2020-04-09 Sewing Supervisor Ultrasound, Leonardo [facility] 1.2 .840.114 [id number] Univers 13:55:54 14:54:41 Visit Radha Charlton MINERAL RESOURCES INSPECTOR 350.1.13.10 ity of [facility] 4.2.7.2.686 Jamal as MATERNAL [phone] [facility] ical & CHILD 369 [facility] 2020-04-09 2020-04-09 Outpatient P [facility] [id number] Univers 14:00:00 14:00:00 ity [facility] 2020-04-07 2020-04-07 Telephone [facility] 1.2.840.114 [id number] Univers 00:00:00 00:00:00 Ernesto Rosario MINERAL RESOURCES INSPECTOR 350.1.13.10 it y of [facility] 4.2.7.2.686 Jamal as MATERNAL [id number] [facility] & CHILD [address] [place] [address] 2020-03-26 2020-03-26 Orders Doctor MOSHE 1.2.840.114 [id number] Univers 00:00:00 00:00:00 Only Unassigned, TEDDY 350.1.13.10 ity of [place] [facility] 42.7.2.686 Jamal as [id number] [address] 2020-03-17 2020-03-17 Routine Madonna V[facility] 1.2.536.271 [id number] Univers 12:49:30 13:34:04 Ernesto Rosario MINERAL RESOURCES INSPECTOR 350.1.13.10 i ty of Visit [facility] 4.2.7.2.686 Jamal as MATERNAL [id number] [facility] & CHILD [address] [place] [address] 2020-03-17 2020-03-17 Outpatient R MADONNA [facility] [id number] Univers 13:00:00 13:00:00 ERNESTO riosspenser [facility] 2020-02-25 2020-02-25 Telephone Madonna [facility] 1.2.840.114 [id number] Univers 00:00:00 00:00:00 Ernesto Rosario MINERAL RESOURCES INSPECTOR 350.1.13.10 it y of [place] [address].7.2.686 Jamal as MATERNAL [id number] Med ical & CHILD [address] [place] [address] 2020-02-18 2020-02-18 Outpatient R MADONNA [facility] [id number] Univers 14:45:00 14:45:00 ERNESTOEMILY rizo [facility] 2020-02-18 2020-02-18 Routine [facility] 1.2.082.831 [id number] Univers 14:09:04 14:39:35 Ernesto N MINERAL RESOURCES INSPECTOR 350.1.13.10 i ty of Visit [address]686 Jamal as MATERNAL [id number] Med ical & CHILD [address] [place] [address] 2020-02-03 2020-02-03 Tele[facility] 1.2.840.114 [id number] Univers 00:00:00 00:00:00 Tushar Lund MINERAL RESOURCES INSPECTOR 350.1.13.10 ity of [place] [address]..2.686 Jamal as MATERNAL [id number] Med ical & CHILD [address] [place] [address] 2020-02-03 2020-02-03 Refill Doctor [facility] 1.2.840.114 [id number] Univers 00:00:00 00:00:00 Unassigned, MINERAL RESOURCES INSPECTOR 350.1.13.10 ity of [place] [address].7.2.686 Jamal as MATERNAL [id number] Med ical & CHILD [address] [place] [address] 2020-01-21 2020-01-21 Routine [facility] 1.2.754.041 [id number] Univers 15:20:02 16:02:58 Ernesto N MINERAL RESOURCES INSPECTOR 350.1.13.10 i ty of Visit [place] [address].2.686 Jamal as MATERNAL [id number] Med ical & CHILD [address] [place] [address] 2020-01-21 2020-01-21 Outpatient R MADONNA [facility] [id number] Univers 15:30:00 15:30:00 ERNESTOEMILY rizo [facility] 2020-01-18 2020-01-18 Refill Doctor [facility] 1.2.840.114 [id number] Univers 00:00:00 00:00:00 Unassigned, MINERAL RESOURCES INSPECTOR 350.1.13.10 ity of [place] REGIONAL 4.2.7.2.686 Jamal as MATERNAL [id number] Med ical & CHILD 107 [facility] 2020-01-09 2020-01-09 Sewing Supervisor [facility]tras[facility] 1.2 .840.114 [id number] Univers 14:52:31 15:17:04 Visit Shereen Travis MINERAL RESOURCES INSPECTOR 350.1.13.10 ity of REGIONAL 4.2.7.2.686 Jamal as MATERNAL [id number] Med ical & CHILD 369 [facility] 2020-01-09 2020-01-09 Outpatient P [facility] [id number] Univers 14:45:00 14:45:00 ity of [facility] 2020-01-09 2020-01-09 Abstract [facility] 1.2.840.114 [id number] Univers 00:00:00 00:00:00 Ernesto Rosario MINERAL RESOURCES INSPECTOR 350.1.13.10 it y of REGIONAL 4.2.7.2.686 Jamal as MATERNAL [id number] Med ical & CHILD [address] [place] [address] 2019-12-27 2019-12-27 Telephone Riky [facility] 1.2.840.114 [id number] Univers 00:00:00 00:00:00 Tushar Lund MINERAL RESOURCES INSPECTOR 350.1.13.10 ity of REGIONAL 4.2.7.2.686 Jamal as MATERNAL [id number] Med ical & CHILD [address] [place] [address] 2019-12-26 2019-12-26 Initial [facility] 1.2.167.752 [id number] Univers 13:39:00 15:06:17 Ernesto Rosario MINERAL RESOURCES INSPECTOR 350.1.13.10 i ty of Visit REGIONAL 4.2.7.2.686 Jamal as MATERNAL [id number] Med ical & CHILD [address] [place] [address] 2019-12-26 2019-12-26 Outpatient [facility] [id number] Univers 13:45:00 13:45:00 ERNESTO rizo [facility] 2019-12-26 2019-12-26 Orders Doctor MESA 1.2.840.114 [id number] Univers 00:00:00 00:00:00 Only Unassigned, TEDDY 350.1.13.10 ity of [place] [facility] 4.2.7.2.686 Jamal as [id number] [address] 2019-12-09 2019-12-09 Outpatient R RIKY [facility] [id number] [facility] 13:15:00 13:15:00 TUSHAR katz f [facility] 2019-10-28 2019-10-28 Telephone [facility] 1.2.840.114 [id number] 00:00:00 00:00:00 Tushar C MINERAL RESOURCES INSPECTOR 350.1.13.10 REGIONAL 4.2.7.2.686 MATERNAL [id number] & CHILD [address] [place] [address] 2019-10-28 2019-10-28 [facility] 1.2.840.114 [id number] [facility] 00:00:00 00:00:00 Tushar C MINERAL RESOURCES INSPECTOR 350.1.13.10 ity of [facility] 4.2.7.2.686 Jamal as MATERNAL [id number] [facility] ical & CHILD [address] [place] [address] 2019-10-09 2019-10-09 Office [facility] 1.2.107.429 [id number] [facility] 08:16:20 08:48:41 Visit Tushar C MINERAL RESOURCES INSPECTOR 350.1.13.10 ity of [facility] 4.2.7.2.686 Jamal as MATERNAL [id number] [facility] & CHILD [address] [place] [address] 2019-10-09 2019-10-09 Office [facility] 1.2.974.502 [id number] 08:16:20 08:48:41 Visit Tushar C MINERAL RESOURCES INSPECTOR 350.1.13.10 [facility] 4.2.7.2.686 MATERNAL [id number] & CHILD [address] [place] [address] 2019-10-09 2019-10-09 Outpatient R RIKY [facility] [id number] [facility] 08:15:00 08:15:00 TUSHAR rizo o f [facility] 2019-10-07 2019-10-07 Outpatient R RIKY [facility] [id number] Univers 10:30:00 10:30:00 TUSHAR rizo o f [facility] 2019-09-27 2019-09-27 Telephone [facility] 1.2.840.114 [id number] Univers 00:00:00 00:00:00 Tushar C MINERAL RESOURCES INSPECTOR 350.1.13.10 ity of REGIONAL 4.2.7.2.686 Jamal as MATERNAL [id number] Med ical & CHILD 107 [facility] 2019-09-25 2019-09-25 Refill [facility] 1.2.634.599 [id number] Univers 00:00:00 00:00:00 Tushar C MINERAL RESOURCES INSPECTOR 350.1.13.10 ity of REGIONAL 4.2.7.2.686 Jamal as MATERNAL [id number] Med ical & CHILD 107 [facility] 2019-08-19 2019-08-19 Telephone [facility] 1.2.840.114 [id number] Univers 00:00:00 00:00:00 Tushar C MINERAL RESOURCES INSPECTOR 350.1.13.10 ity of REGIONAL 4.2.7.2.686 Jamal as MATERNAL [id number] Med ical & CHILD 107 [facility] 2019-08-16 2019-08-16 Case Joselyn [facility] 1.2.463.441 [id number] Univers 00:00:00 00:00:00 Management Selam MINERAL RESOURCES INSPECTOR 350.1.13.10 ity of REGIONAL 4.2.7.2.686 Jamal as MATERNAL [id number] Med ical & CHILD 111 [facility] 2019-08-15 2019-08-15 Office Provider, Ang-Rmchp [facility] 1 .2.840.114 [id number] Univers 10:43:37 11:14:30 Visit Selam Alves MINERAL RESOURCES INSPECTOR 350.1.13.10 ity of REGIONAL 4.2.7.2.686 Jamal as MATERNAL [id number] Med ical & CHILD 107 [facility] 2019-08-15 2019-08-15 Outpatient R JOSELYN VTSOLE [facility] [id number] Univers 10:45:00 10:45:00 SELAM katz xin [facility] 2019-07-23 2019-07-23 Telephone [facility] 1.2.840.114 [id number] Univers 00:00:00 00:00:00 Tushar Lund MINERAL RESOURCES INSPECTOR 350.1.13.10 ity of [facility] 4.2.7.2.686 Jamal as MATERNAL [id number] [facility] & CHILD [address] [place] [address] 2019-07-19 2019-07-19 Orders Doctor MSOHE 1.2.840.114 [id number] Univers 00:00:00 00:00:00 Only Unassigned, TEDDY 350.1.13.10 ity of [place] [facility] 4.2.7.2.686 Jamal as [id number] [address] 2019-07-08 2019-07-08 [facility]ici [facility] 1.2.840.114 [id number] Univers 07:39:54 09:35:12 ne Visit Tushar Lund MINERAL RESOURCES INSPECTOR 350.1.13.10 ity of [facility] 4.2.7.2.686 Jamal as MATERNAL [id number] [facility] & CHILD [address] [place] [address] 2019-07-08 2019-07-08 Outpatient R RIKY [facility] [id number] Univers 09:30:00 09:30:00 TUSHAR lauren [facility] 2019-07-05 2019-07-05 Telephone [facility] 1.2.840.114 [id number] Univers 00:00:00 00:00:00 Tushar Lund MINERAL RESOURCES INSPECTOR 350.1.13.10 ity of REGIONAL 4.2.7.2.686 Jamal as MATERNAL [id number] [facility] & CHILD [address] [place] [address] 2019-04-29 2019-04-29 Telephone [facility] 1.2.840.114 [id number] Univers 00:00:00 00:00:00 Tushar C MINERAL RESOURCES INSPECTOR 350.1.13.10 ity of [facility] 4.2.7.2.686 Jamal as MATERNAL [id number] [facility] & CHILD [address] [place] [address] 2019-04-01 2019-04-01 Telephone [facility] 1.2.840.114 [id number] Univers 00:00:00 00:00:00 Tushar Lund MINERAL RESOURCES INSPECTOR 350.1.13.10 ity of [facility] 4.2.7.2.686 Jamal as MATERNAL [id number] [facility] ical & CHILD [address] [place] [address] 2019 2019 Office [facility] 1.2.639.499 [id number] Univers 10:39:31 11:16:49 Visit Tushar Lund MINERAL RESOURCES INSPECTOR 350.1.13.10 ity of [facility] 4.2.7.2.686 Jamal as MATERNAL [id number] [facility] ical & CHILD [address] [place] [address] 2019 2019 Orders Doctor MOSHE 1.2.840.114 [id number] Univers 00:00:00 00:00:00 Only Unassigned, TEDDY 350.1.13.10 ity of [place] [facility] 4.2.7.2.686 Jamal as [id number] [address] 2018-12-20 2018-12-20 Office Akinsipe, 1.2.840.2 [id number] [facility] 09:37:41 10:39:11 Visit Tushar Lund 80260.1.1 i ty of 3.104.2.7 [place] .3.361459 Medica l .8 [place] 2018-12-20 2018-12-20 Telephone Akinsipe, 1.2.840.5 [id number] Univers 00:00:00 00:00:00 Tushar Lund 43556.1.1 i ty of 3.104.2.7 [place] 3.236200 Medica l .8 [place] 2018-12-20 2018-12-20 Orders Doctor 1.2.840.7 [id number] Univers 00:00:00 00:00:00 Only Unassigned, 50273.1.1 ity of [place] 3.104.2.7 [facility]3.024211 Medica l .8 [place] Results Test Description Test Time Test Comments [...] g/dL 31.6-35.1 L RDW-SD (test code = 42641-9) 38.7 fL 39.0-49.9 L RDW-CV (test code = 788-0) 15.1 % 12.0-15.5 PLT (test code = 777-3) 338 See_Comment [Au tomated message] The system which ge nerated this result transmit brendan reference range: 166 - 35 8 10*3/?L. The reference range was not used to interpret th is result as normal/abnormal . MPV (test code = 94229-3) 10.1 fL 9.5-12.9 NRBC/100 WBC (test code = 0.0 See_Comment [ Automated message] The 9329610688) system which ge nerated this result transmit brendan reference range: 0.0 - 10 .0 /100 WBCs. The reference r yancy was not used to interpr et this result as normal/abnor mal. NRBC x10^3 (test code = See_Comment [Au tomated message] The 4606672941) system which ge nerated this result transmit brendan reference range: 10*3/?L. The reference range was not u sed to interpret this result as normal/abnormal . GRAN MAT (NEUT) % (test code 72.3 % = 770-8) IMM GRAN % (test code = 0.90 % 6252225722) LYMPH % (test code = 736-9) 18.3 % MONO % (test code = 5905-5) 5.8 % EOS % (test code = 713-8) 2.5 % BASO % (test code = 706-2) 0.2 % GRAN MAT x10^3(ANC) (test 7.24 10*3/uL 1.88-7.09 H code = 3404460944) IMM GRAN x10^3 (test code = 0.09 10*3/uL 0.00-0.06 H 0289998621) LYMPH x10^3 (test code = 1.83 10*3/uL 1.32-3.29 731-0) MONO x10^3 (test code = 0.58 10*3/uL 0.33-0.92 742-7) EOS x10^3 (test code = 0.25 10*3/uL 0.03-0.39 711-2) BASO x10^3 (test code = 0.01-0.07 704-7) Lab Interpretation (test Abnormal code = 93406-2) [facility]. METABOLIC PANEL (47172)2022-07-25 03:39:13 Test Item Value Reference Range Interpretation Comments NA (test code = 138 mmol/L 135-145 3584433321) K (test code = 3.1 mmol/L 3.5-5.0 L 0642696405) CL (test code = 109 mmol/L 98-108 H 2159780090) CO2 TOTAL (test code = 21 mmol/L 23-31 L 3982666711) AGAP (test code = 8 2-16 0855819339) BUN (test code = 12 mg/dL 7-23 4877584689) GLUCOSE (test code = 100 mg/dL 70-110 4523154503) CREATININE (test code = 0.44 mg/dL 0.50-1.04 L 6053328404) TOTAL BILI (test code = 1.1 mg/dL 0.1-1.7 5117406445) CALCIUM (test code = 8.1 mg/dL 8.6-10.6 L 0196513431) T PROTEIN (test code = 6.1 g/dL 6.3-8.2 L 8276443650) ALBUMIN (test code = 2.9 g/dL 3.5-5.0 L 8336766137) ALK PHOS (test code = 101 U/L 34-122 2625534772) ALTv (test code = 11 U/L 5-35 1742-6) AST(SGOT) (test code = 19 U/L 13-40 7047403249) eGFR (test code = 182.3 mL/min/1.73m2 2008537015) ARGENIS (test code = ARGENIS) Association of [...] tests). Lab Interpretation Abnormal (test code = 30259-9) [facility] WITH [id number] 03:29:32 Test Item Value Reference Range Interpretation [...] (test code = 38.3 fL 39.0-49.9 L 41687-2) RDW-CV (test code = 15.1 % 12.0-15.5 788-0) PLT (test code = 279 See_Comment [Automated 777-3) message] The sy stem which generated this result transmitted reference range : 166 - 358 10*3/ ?L. The reference r yancy was not used to interpret this result as normal/abnormal . MPV (test code = 10.3 fL 9.5-12.9 21263-3) NRBC/100 WBC (test 0.0 See_Comment [Automat ed code = 8213428532) message] The system which generated this result transmitted reference range : 0.0 - 10.0 /100 WBCs. The refer ence range was not u sed to interpret th is result as normal/abnormal . NRBC x10^3 (test code See_Comment [Auto mated = 5170997131) message] The s ystem which generated this result transmitted reference range : 10*3/?L. The reference range was not used to interpret this result as normal/abnormal . GRAN MAT (NEUT) % 80.7 % (test code = 770-8) IMM GRAN % (test code 0.70 % = 3300250987) LYMPH % (test code = 11.3 % 736-9) MONO % (test code = 4.9 % 5905-5) EOS % (test code = 2.2 % 713-8) BASO % (test code = 0.2 % 706-2) GRAN MAT x10^3(ANC) 7.96 10*3/uL 1.88-7.09 H (test code = 1518089229) IMM GRAN x10^3 (test 0.07 10*3/uL 0.00-0.06 H code = 5604297287) LYMPH x10^3 (test code 1.12 10*3/uL 1.32-3.29 L = 731-0) MONO x10^3 (test code 0.48 10*3/uL 0.33-0.92 = 742-7) EOS x10^3 (test code = 0.22 10*3/uL 0.03-0.39 711-2) BASO x10^3 (test code 0.01-0.07 = 704-7) Lab Interpretation Abnormal (test code = 02869-0) [facility] I[facility] [id number] 00:24:07 Test Item Value Reference Range Interpretation Comments RHIG CANDIDATE? No- see comment Patient i s not a (test code = candidate for R hIg- 5188) Patient is Rh Positive.Perfor med at [facility] Laboratory Services - [facility] Blood [address] [place] [id number] Free: [phone] A No. [id number] [facility] with Wonezjxiaehb9551-73-83 11:22:51 Test Item Value Reference Range Interpretation Comments WBC (test code = 21.75 See_Comment H [Automated 8843-2) message] The system which generated this result transmit brendan reference range : 4.30 - 11.10 10*3/?L. The reference range was not used to interpret this result as normal/abnormal . RBC (test code = 3.93 See_Comment [Automated 716-2) message] The system which generated this result [...] (test code = 37.8 fL 39.0-49.9 L 62140-0) RDW-CV (test code = 14.6 % 12.0-15.5 788-0) PLT (test code = 216 See_Comment [Automated 777-3) message] The system which generated this result transmit brendan reference range : 166 - 358 10*3/ ?L. The reference range was not u sed to interpret th is result as normal/abnormal . MPV (test code = 10.8 fL 9.5-12.9 86544-9) NRBC/100 WBC (test 0.0 See_Comment [Automat ed code = 3826770801) message] The system which generated this result transmit brendan reference range : 0.0 - 10.0 /100 WBCs. The reference range was not used to interpret this result as normal/abnormal . NRBC x10^3 (test code See_Comment [Auto mated = 8794170341) message] The system which generated this result transmit brendan reference range : 10*3/?L. The reference range was not used to interpret this result as normal/abnormal . SEG % (test code = 83 % 33-76 H 11064-7) BAND % (test code = 9 % 0-1 H 41674-2) LYMPH % (test code = 8 % 14-54 L 33736-9) ANC (test code = 20.01 10*3/uL 1.88-7.09 H 753-4) Lab Interpretation Abnormal (test code = 60026-2) [facility] with [id number] 11:22:51 Test Item Value Reference Range Interpretation [...] (test code = 37.8 fL 39.0-49.9 L 88585-8) RDW-CV (test code = 14.6 % 12.0-15.5 788-0) PLT (test code = 216 See_Comment [Automated 777-3) message] The system which generated this result transmit brendan reference range : 166 - 358 10*3/ ?L. The reference range was not u sed to interpret th is result as normal/abnormal . MPV (test code = 10.8 fL 9.5-12.9 90436-9) NRBC/100 WBC (test 0.0 See_Comment [Automat ed code = 0969583145) message] The system which generated this result transmit brendan reference range : 0.0 - 10.0 /100 WBCs. The reference range was not used to interpret this result as normal/abnormal . NRBC x10^3 (test code See_Comment [Auto mated = 9335248691) message] The system which generated this result transmit brendan reference range : 10*3/?L. The reference range was not used to interpret this result as normal/abnormal . SEG % (test code = 83 % 33-76 H 66876-5) BAND % (test code = 9 % 0-1 H 30918-1) LYMPH % (test code = 8 % 14-54 L 09227-3) ANC (test code = 20.01 10*3/uL 1.88-7.09 H 753-4) Lab Interpretation Abnormal (test code = 05056-9) [facility] hospital URINALYSIS W SPECIFIC [id number] 19:23:00 Test Item Value Reference Range Interpretation [...] U APPEAR (test code = 3267) . General acute hospital URINALYSIS W SPECIFIC [id number] 19:48:00 Test Item Value Reference Range Interpretation [...] U APPEAR (test code = 3267) . [facility]CIFIC [id number] 18:04:00 Test Item Value Reference Range Interpretation [...] U APPEAR (test code = 3267) . [facility] with Deuvqpvvfwau0928-08-36 04:55:42 Test Item Value Reference Range Interpretation Comments WBC (test code = 12.52 See_Comment H [Automated 2390-2) message] The sy stem which generated this result transmitted reference range : 4.30 - 11.10 10*3/?L. The reference range was not used to interpret this result as normal/abnormal . RBC (test code = 4.28 See_Comment [Automated 449-8) message] The sy stem which generated this [...] RDW-SD (test code = 39.8 fL 39.0-49.9 31936-0) RDW-CV (test code = 13.8 % 12.0-15.5 788-0) PLT (test code = 287 See_Comment [Automated 777-3) message] The sy stem which generated this result transmitted reference range : 166 - 358 10*3/ ?L. The reference r yancy was not used to interpret this result as normal/abnormal . MPV (test code = 11.0 fL 9.5-12.9 07149-4) NRBC/100 WBC (test 0.0 See_Comment [Automat ed code = 9001278736) message] The system which generated this result transmitted reference range : 0.0 - 10.0 /100 WBCs. The refer ence range was not u sed to interpret th is result as normal/abnormal . NRBC x10^3 (test code See_Comment [Auto mated = 1634559836) message] The s ystem which generated this result transmitted reference range : 10*3/?L. The reference range was not used to interpret this result as normal/abnormal . GRAN MAT (NEUT) % 68.4 % (test code = 770-8) IMM GRAN % (test code 1.10 % = 7077113282) LYMPH % (test code = 19.6 % 736-9) MONO % (test code = 6.5 % 5905-5) EOS % (test code = 3.8 % 713-8) BASO % (test code = 0.6 % 706-2) GRAN MAT x10^3(ANC) 8.56 10*3/uL 1.88-7.09 H (test code = 8698667867) IMM GRAN x10^3 (test 0.14 10*3/uL 0.00-0.06 H code = [id number]) LYMPH x10^3 (test code 2.46 10*3/uL 1.32-3.29 = 731-0) MONO x10^3 (test code 0.82 10*3/uL 0.33-0.92 = 742-7) EOS x10^3 (test code = 0.47 10*3/uL 0.03-0.39 H 711-2) BASO x10^3 (test code 0.07 10*3/uL 0.01-0.07 = 704-7) Lab Interpretation Abnormal (test code = 35827-1) [facility] [id number] 04:31:20 Test Item Value Reference Range Interpretation Comments GLUC 1 HR (test code = [id number]) 72 mg/dL 120-170 L Lab Interpretation (test code = Abnormal 94458-3) [facility]CIFIC [id number] 20:18:00 Test Item Value Reference Range Interpretation [...] U APPEAR (test code = 3267) . General acute hospital URINALYSIS W SPECIFIC [id number] 20:18:00 Test Item Value Reference Range Interpretation [...] U APPEAR (test code = 3267) . General acute hospital URINALYSIS W SPECIFIC [id number] 17:24:00 Test Item Value Reference Range Interpretation [...] U APPEAR (test code = 3267) . General acute hospital URINALYSIS W SPECIFIC [id number] 16:03:00 Test Item Value Reference Range Interpretation [...] U APPEAR (test code = 3267) . General acute hospital URINALYSIS W SPECIFIC [id number] 17:19:00 Test Item Value Reference Range Interpretation [...] U APPEAR (test code = 3267) . General acute hospital URINALYSIS W SPECIFIC [id number] 17:19:00 Test Item Value Reference Range Interpretation [...] U APPEAR (test code = 3267) . General acute hospital URINALYSIS W SPECIFIC [id number] 16:39:00 Test Item Value Reference Range Interpretation [...] POCT U APPEAR (test code = 3267) General acute hospital URINALYSIS W SPECIFIC [id number] 19:37:00 Test Item Value Reference Range Interpretation [...] U APPEAR (test code = 3267) . General acute hospital URINALYSIS W SPECIFIC [id number] 15:33:00 Test Item Value Reference Range Interpretation [...] U APPEAR (test code = 3267) . General acute hospital [id number] 14:34:00 Test Item Value Reference Range Interpretation Comments POCT PREG (test code = 1605) Positive On board controls acceptable with C Yes Line (test code = 3574) POCT PREG LOT # (test code = 3575) POCT PREG TEST DATE (test code = 357) General acute hospital URINALYSIS W/O SPECIFIC [id number] 14:34:00 Test Item Value Reference Range Interpretation [...] code = 3257) negative Negative - Negative General acute hospital [id number] 14:34:00 Test Item Value Reference Range Interpretation Comments POCT PREG (test code = 1605) Positive On board controls acceptable with C Yes Line (test code = 3574) POCT PREG LOT # (test code = 3575) POCT PREG TEST DATE (test code = 357) General acute hospital URINALYSIS W/O SPECIFIC [id number] 14:34:00 Test Item Value Reference Range Interpretation [...] code = 3257) negative Negative - Negative General acute hospital [id number] 14:31:00 Test Item Value Reference Range Interpretation Comments POCT PREG (test code = 1605) Positive On board controls acceptable with C Yes Line (test code = 3574) POCT PREG LOT # (test code = 3575) POCT PREG TEST DATE (test code = 3576) [id number]26[facility] Test Item Value Reference Range Interpretation Comments POCT PREG (test code Negative = 1605) On board controls Yes acceptable with C Line (test code = 3574) POCT PREG LOT # (test code = 3575) POCT PREG TEST DATE (test code = 3576) ARGENIS (test code = ARGENIS) accurate development and interpretation of all internal controls [facility]
--- NOTE | 2023-01-24 12:18 | ER ---
Nurse's Notes [facility] Name: Sil Gaytan Age: 22 yrs Sex: Female : 2000 Arrival Date: 01/24/2023 Time: 11:00 Bed IW3 Private MD: Diagnosis: Complete or unspecified spontaneous without complication Presentation: 01/24 11:28 Chief complaint: Patient states: need for follow-up HCG, pt reports vaginal bleeding aa5 stopped this morning. Coronavirus screen: At this time, the client does not indicate any symptoms associated with coronavirus-19. Ebola Screen: Patient denies travel to an Ebola-affected area in the 21 days before illness onset. Initial Sepsis Screen: Does the patient meet any 2 criteria? No. Patient's initial sepsis screen is negative. Does the patient have a suspected source of infection? No. Patient's initial sepsis screen is negative. Risk Assessment: Do you want to hurt yourself or someone else? Patient reports no desire to harm self or others. Onset of symptoms was January 24, 2023. 11:28 Acuity: DELMAR 4 aa5 11:28 Method Of Arrival: Ambulatory aa5 Historical: - Allergies: 11:28 Codeine; aa5 11:28 PENICILLINS; aa5 11:28 Prednisone; aa5 - PMHx: 11:28 Asthma; Hypertensive disorder; aa5 - PSHx: 11:28 ; aa5 Screenin:17 [facility] ED Fall Risk Assessment (Adult) Score/Fall Risk Level 0 - 2 = Low Risk. Abuse iw screen: Denies threats or abuse. Denies injuries from another. Nutritional screening: No deficits noted. Tuberculosis screening: No symptoms or risk factors identified. Assessment: 12:16 General: Appears in no apparent distress. Behavior is calm, cooperative. Pain: Denies iw pain. Neuro: Level of Consciousness is awake, alert, obeys commands, Moves all extremities. Full function. Cardiovascular: Patient's skin is warm and dry. Respiratory: Respiratory effort is even, unlabored, Respiratory pattern is regular. Derm: Skin is intact, is healthy with good turgor. Musculoskeletal: Range of motion: intact in all extremities. Vital Signs: 11:28 BP 145 / 103; Pulse 88; Resp 16 S; Temp 97.7(TE); Pulse Ox 98% on R/A; Weight 78.47 kg aa5 (R); Height 5 ft. 6 in. (R); 11:28 Body Mass Index 27.92 (78.47 kg, 167.64 cm) aa5 ED Course: 11:01 Patient arrived in ED. rg4 11:10 Breanne Portillo FNP-C [facility]. kb 11:10 Elvis Garza DO is Attending Physician. kb 11:28 Arm band placed on. aa5 11:29 Triage completed. aa5 11:31 Initial lab(s) drawn, by ED staff, sent to lab. aa5 12:16 Pamela Dockery, RN is Primary Nurse. iw 12:17 Elvis Garza DO is Referral Physician. kb 12:17 Patient has correct armband on for positive identification. Provided Education on: . iw 12:17 No provider procedures requiring assistance completed. Patient did not have IV access iw during this emergency room visit. Administered Medications: No medications were administered Medication: 12:17 VIS not applicable for this client. iw Outcome: 12:17 Discharge ordered by MD. kb 12:17 Patient left the ED. kb 12:17 Discharged to home ambulatory, iw 12:17 Condition: good 12:17 Discharge instructions given to patient, Instructed on discharge instructions, follow up and referral plans. Demonstrated understanding of instructions, follow-up care, Signatures: Breanne Portillo FNP-C FNP-Pamela Farias, RN Teresa Rivas RN RN Tawnya Lopez rg4
--- NOTE | 2023-01-24 12:18 | EDPHYS ---
Physician Documentation [facility] Name: Sil Gaytan Age: 22 yrs Sex: Female : 2000 Arrival Date: 01/24/2023 Time: 11:00 Bed IW3 Private MD: ED Physician Elvis Garza HPI: 01/24 12:15 This 22 yrs old Female presents to ER via Ambulatory with complaints of Recheck HCG. kb 12:15 Patient is a 22-year-old female who presents for a recheck serum hCG. Was seen here 3 kb days ago for vaginal bleeding and quantitative was 670. States she was told to come back to have it rechecked. Reports vaginal bleeding ended yesterday. Currently has no symptoms.. Historical: - Allergies: : Codeine; aa5 11: PENICILLINS; aa5 11:28 Prednisone; aa5 - PMHx: :28 Asthma; Hypertensive disorder; aa5 - PSHx: :28 ; aa5 ROS: 12:15 Constitutional: Negative for fever, chills, and weight loss, kb 12:15 All other systems are negative, Exam: 12:16 Constitutional: This is a well developed, well nourished patient who is awake, alert, kb and in no acute distress. Head/Face: Normocephalic, atraumatic. ENT: Moist Mucous membranes Respiratory: Respirations even and unlabored. No increased work of breathing. Talking in full sentences Abdomen/GI: Soft, non-tender. No distention Skin: Warm, dry with normal turgor. Normal color. MS/ Extremity: Pulses equal, no cyanosis. Neurovascular intact. Full, normal range of motion. Neuro: Awake and alert, GCS 15, oriented to person, place, time, and situation. Moves all extremities. Normal gait. Vital Signs: 11:28 BP 145 / 103; Pulse 88; Resp 16 S; Temp 97.7(TE); Pulse Ox 98% on R/A; Weight 78.47 kg aa5 (R); Height 5 ft. 6 in. (R); 11:28 Body Mass Index 27.92 (78.47 kg, 167.64 cm) aa5 MDM: 11:10 Patient medically screened. kb 12:16 Differential diagnosis: threatened Ab, inevitable Ab, complete Ab. Data reviewed: vital kb signs, nurses notes. Counseling: I had a detailed discussion with the patient and/or guardian regarding the historical points, exam findings, and any diagnostic results supporting the discharge/admit diagnosis, lab results, the need for outpatient follow up, an OB/Gyne specialist, to return to the emergency department if symptoms worsen or persist or if there are any questions or concerns that arise at home. 01/24 11:12 Order name: Quantitative Hcg; Complete Time: 12:07 kb Administered Medications: No medications were administered Disposition: 15:29 I was immediately available on-site in the Emergency Department for consultation in the ms3 care of the patient. Disposition Summary: 01/24/23 12:17 Discharge Ordered Notes: Location: Home kb Condition: Stable kb Diagnosis - Complete or unspecified spontaneous without complication kb Followup: kb - With: Emergency Department - When: As needed - Reason: Worsening of condition Followup: kb - With: Private Physician - When: 2 - 3 days - Reason: Recheck today's complaints, Continuance of care, Re-evaluation by your physician Discharge Instructions: - Discharge Summary Sheet kb - Miscarriage, [id number] kb Forms: - Medication Reconciliation Form kb - Thank You Letter kb - Antibiotic Education kb - Prescription Opioid Use kb - Patient Portal Instructions kb - Leadership Thank You Letter kb Signatures: Dispatcher [employer] Breanne San, CRISTIANO-Ashely QUINONEZ-Teresa Morris, RN RN aa5 Elvis Garza, DO DO ms3
[2023-01-24 12:23] VITALS: BP 145/103; TEMP 97.7; O2SAT 98
== END 2023-01-24 12:17 | disposition home or self-care (01) ==
LOC: ER 11:00
DX: O03.9 Complete or unspecified spontaneous abortion without complication (principal)
CPT/HCPCS: 36415; 84702; 99283

== ENCOUNTER 2023-02-02 18:57 | Emergency (ER) | payer OTHER ==
--- OUTSIDE RECORDS SUMMARY | 2023-02-02 19:13 | XMS REPORT | Continuity of Care Document ---
Author Name Unknown Address [address] [facility] [address] [place] [address] [facility] thconnect Address [address] [facility] [address] [place] [address] Care Team Providers Care Legal Paraprofessional Name Role Phone TUSHAR LAN Primary Care Physician KASEY Morrow Attending Clinician KASEY Petty Attending Clinician TUSHAR Jordan Attending Clinician Unavail able Tushar Villarreal Attending Clinician + MOSHE AGOSTO Attending Clinician Unavailable [facility]ending [facility]ician HETAL Geiger Attending Clinician Unavailable Hetal Norris MD Attending Clinician [phone] Patt Nova RN Attending Clinician UnavailAUSTIN Emery Attending Clinician Unavailable Austin Arzola MD Attending Clinician [phone] Doctor Unassigned, Grannis Attending Clinician U arpanailAntonette Sanchez CNM Attending Clinician +[phone] ANTONETTE LUQUE Attending Clinician UnavailSHEREEN Nicholson Attending Clinician Unavailable Risk, Ieh-Sgrkb-Ji/High Attending Clinician Unav Shereen Hodges MD Attending Clinician [phone] Ultrasound, Ang-Mfm Attending Clinician Unavaila Edwin Coley Attending Clinician [phone] EDWIN CAGE Attending Clinician Unavailable David Cooper DO Attending Clinician [phone] SARA SNYDER Attending Clinician UnavailSARA Pugh Attending Clinician Unavailgeorgiana law Provider, Ang-Rmchp Temp Attending Clinician Tika Niki Jackman Attending Clinician [phone] NIKI RALPH Attending Clinician Unavailab JAM Neville Attending Clinician Unavailable CLINTON CRUMP Attending Clinician Unavailable Ernesto Valente Attending Clinician [phone] ERNESTO PEACOCK Attending Clinician UnavailHarvinder QUINONEZ, Rosio Attending Clinician [phone] Dylan Prieto MD Attending Clinician [phone] Maria PALACIOS, BAND TIER, R Attending Clinician [phone] Fer, Ang-Rmchp Attending Clinician Unavailable Jeffery Dumont DO Attending Clinician [phone] Radha Charlton MD Attending Clinician [phone] Selam Fields Attending Clinician + [phone] SELAM ALVES Attending Clinician Unavailab KASEY Tolentino Admitting Clinician García ARZOLA, AUSTIN HOLM Admitting Clinician Unavailable HETAL NORRIS Admitting Clinician Unavailable Hetal Norris MD Admitting Clinician [phone] Austin Arzola MD Admitting Clinician [phone] SARA SNYDER Admitting Clinician Unavaila ble Payers Payer Name Policy Type Policy Number Effective Date Expirati on Date Source [employer] [id number] 2021 00:00:00 Problems Condition Name Condition Details Condition Category Status Onset Date Resolution Date Last Treatment Date Treating Clinician Comments Source Well woman exam Well woman exam Disease Active 7-12 00:00: 00 [facility] Routine follow-up Routine follow-up Disease Active 0 6-16 00:00: 00 [facility] induced hypertensi on, antepartum induced hypertensi on, antepartum Disease Active 0 6-02 00:00: 00 [facility] state state Disease Active 6-02 00:00: 00 [facility] Obesity (BMI 30-39.9) Obesity (BMI 30-39.9) Disease Active 0 5-28 00:00: 00 [facility] Postoperat chris fever Postoperat chris fever Disease Active 0 5-28 00:00: 00 [facility] premature rupture of membranes (PPROM) with onset of labor within 24 hours of rupture in third trimester, antepartum premature rupture of membranes (PPROM) with onset of labor within 24 hours of rupture in third trimester, antepartum Disease Active 5-25 00:00: 00 [facility] 36 weeks gestation of 36 weeks gestation of Disease Active 5-25 00:00: 00 [facility] Liveborn infant, of [place] , born in hospital by delivery Liveborn , of [place] , born in hospital by delivery Disease Active 0 525 00:00: 00 [facility] UTI in UTI in Disease Active 24 00:00: 00 Overview: Formattin g of this note might be different from the original. Per meds sent and patient notified [facility] Supervisio n of high-risk Supervisio n of high-risk Disease Active 2023-0 3-02 00:00: 00 [facility] Multiparit y Multiparit y Disease Active 0 3-02 00:00: 00 [facility] History of pre-eclamp raymond in prior , currently History of pre-eclamp raymond in prior , currently Disease Active 2021-02 0-27 00:00: 00 [facility] related nausea, antepartum related nausea, antepartum Disease Active 2021-02 0-27 00:00: 00 [facility] Declines flu vaccine Declines flu vaccine Disease Active 2021-02 0-27 00:00: 00 [facility] History of anxiety and depression History of anxiety and depression Disease Active 2021-02 0-27 00:00: 00 [facility] Missed menses Missed menses Disease Active 2021-02 0-13 00:00: 00 [facility] History of delivery, currently History of delivery, currently Disease Active 2021-02 0-13 00:00: 00 [facility] Other general counseling and advice for contracept chris management Other general counseling and advice for contracept chris management Disease Active 8-02 00:00: 00 [facility] Elevated blood pressure reading without diagnosis of hypertensi on Elevated blood pressure reading without diagnosis of hypertensi on Disease Active 8-02 00:00: 00 [facility] Encounter for surveillan ce of contracept chris pills Encounter for surveillan ce of contracept chris pills Disease Active 2020-02 1-22 00:00: 00 [facility] with inconclusi ve viability, single or unspecifie d fetus with inconclusi ve viability, single or unspecifie d fetus Disease Active 4-13 00:00: 00 [facility] Overweight Overweight Disease Active 4-13 00:00: 00 [facility] Asthma during Asthma during Disease Active 2019-02 0-29 00:00: 00 [facility] Allergies, Adverse Reactions, Alerts Allergy Name Allergy Type Status Severity Reaction(s) Onset Date Inactive Date Treating Clinician Comments Source Codeine Drug Allergy Active Cough 2019-02 00:00: 00 [facility] CODEINE DRUG INGREDI Active COUGH 2019-02 00:00: 00 [facility] Predniso lone Propensi ty to adverse reaction s Active Rash 06-03 00:00: 00 [facility] Penicill ins Propensi ty to adverse reaction s Active Rash 06-03 00:00: 00 [facility] PENICILL INS Drug Class Active Rash 06-03 00:00: 00 [facility] PREDNISO LONE DRUG INGREDI Active Rash 06-03 00:00: 00 [facility] Penicill ins Propensi ty to adverse reaction s Active Rash 06-03 00:00: 00 [facility] Social History Social Habit Start Date Stop Date Quantity Comments Source ASSERTION 2021-11-25 00:00:00 [facility] History SDOH Alcohol Std Drinks [facility] History SDOH Alcohol Binge [facility] History SDOH Alcohol Comment [facility] Exposure to SARS-CoV-2 (event) 2022-07-11 00:00:00 2022-07-21 10:35:00 Not sure [facility] History of Social function 2021-12-23 00:00:00 2021-12-23 00:00:00 [facility] Alcohol intake 2020-06-23 00:00:00 2020-06-23 00:00:00 Lifetime non-drinker (finding) [facility] Tobacco use and exposure 2018-12-20 00:00:00 2018-12-20 00:00:00 Smokeless tobacco non-user [facility] History SDOH Alcohol Frequency 2018-12-20 00:00:00 2018-12-20 00:00:00 1 [facility] Sex Assigned At 2002 00:00:00 2000 00:00:00 [facility] Smoking Status Start Date Stop Date Source Never smoked tobacco [facility] Medications Ordered Medication Name Filled Medication Name Start Date Stop Date Current Medication? Ordering Clinician Indication Dosage Frequency Signature (SIG) Comments Components Source acetaminoph en (TYLENOL) tablet 650 mg 07-29 13:29: 04 Yes 650mg 650 mg, Oral, Q6HPRN, Starting on Mon07/29/22 at 0829, Until Discontinu ed, Routine, Pain (scale 1-3), Pain (scale 4-6) [facility] labetaloL (NORMODYNE) tablet 200 mg 07-29 06:00: 00 Yes 200mg 200 mg, Oral, Q12H, First dose on Mon07/29/22 at 0100, Until Discontinu ed, Routine [facility] labetaloL 200 mg tablet 0 07-29 00:00: 00 Yes [id number] 200mg Take 1 tablet by mouth every 12 (twelve) hours. [facility] labetaloL 200 mg tablet 0 07-29 00:00: 00 Yes [id number] 200mg Take 1 tablet by mouth every 12 (twelve) hours. [facility] labetaloL 200 mg tablet 0 07-29 00:00: 00 Yes [id number] 200mg Take 1 tablet by mouth every 12 (twelve) hours. [facility] labetaloL 200 mg tablet 0 07-29 00:00: 00 Yes [id number] 200mg Take 1 tablet by mouth every 12 (twelve) hours. [facility] labetaloL 200 mg tablet 0 07-29 00:00: 00 Yes [id number] 200mg Take 1 tablet by mouth every 12 (twelve) hours. [facility] labetaloL 200 mg tablet 0 07-29 00:00: 00 Yes [id number] 200mg Take 1 tablet by mouth every 12 (twelve) hours. [facility] labetaloL 200 mg tablet 2022-0 07-29 00:00: 00 Yes [id number] 200mg Take 1 tablet by mouth every 12 (twelve) hours. [facility] labetaloL 200 mg tablet 2022-0 07-29 00:00: 00 Yes [id number] 200mg Take 1 tablet by mouth every 12 (twelve) hours. [facility] labetaloL 200 mg tablet 07-29 00:00: 00 Yes [id number] 200mg Take 1 tablet by mouth every 12 (twelve) hours. [facility] KCL (KLOR-CON M20) tablet 40 mEq 07-25 06:15: 00 07-25 13:41 :00 No 40meq 40 mEq, Oral, DAILY, 2 doses, First dose on Mon07/25/22 at 0115, Last dose on Mon07/25/22 at 0900, Routine [facility] ferrous sulfate tablet 325 mg 07-25 01:00: 00 Yes 325mg 325 mg, Oral, BID, First dose on Mon07/24/22 at 2000, Until Discontinu ed, Routine [facility] ceFAZolin (ANCEF) 1,000 mg in NaCl 0.9% (NS) 100 mL MINI-BAG 07-24 19:00: 00 07-26 18:59 :00 No 1000mg 1,000 mg, IV Piggyback, Q8H ABX, 6 doses, First dose (after last modificati on) on Mon07/24/22 at 1400, Last dose on Mon07/26/22 at 0600, Administer over 30 Minutes, 100 mL
Reas on for Anti-Infec tive: Documented Infection< br>Documen brendan Infection Site: Urine
D uration of Therapy: Other (see Comments) [facility] rho(D) immune globulin (RHOGAM) syringe 300 mcg 07-24 15:24: 51 Yes 300ug 300 mcg, Intramuscu lar, ONCE, For 1 dose, Conditiona l, Routine [facility] HYDROcodone -acetaminop hen (NORCO 5) 5-325 mg tablet 2 tablet 07-24 15:23: 27 Yes 2{tbl} 2 tablet, Oral, Q6HPRN, Starting on Mon07/24/22 at 1023, Until Discontinu ed, Routine, Pain (scale 7-10), Alternate with Ibuprofen [facility] HYDROcodone -acetaminop hen (NORCO 5) 5-325 mg tablet 1 tablet 07-24 15:23: 22 Yes 1{tbl} 1 tablet, Oral, Q6HPRN, Starting on Mon07/24/22 at 1023, Until Discontinu ed, Routine, Pain (scale 4-6), Alternate with Ibuprofen [facility] diphenhydrA MINE (BENADRYL) injection 25 mg 07-24 15:21: 28 Yes 25mg 25 mg, Slow IV Push, Q6HPRN, Starting on Mon07/24/22 at 1021, Until Discontinu ed, Routine, Itching [facility] diphenhydrA MINE (BENADRYL) tablet 25 mg 07-24 15:21: Yes 25mg 25 mg, Oral, Q6HPRN, Starting on Mon07/24/22 at 1021, Until Discontinu ed, Routine, Sleep, Itching [facility] ondansetron (ZOFRAN (PF)) injection 4 mg 07-24 15:21: 28 Yes 4mg 4 mg, Slow IV Push, Q8HPRN, Starting on Mon07/24/22 at 1021, Until Discontinu ed, Routine, Nausea and Vomiting (N/V) [facility] bisacodyL (DULCOLAX) suppository 10 mg 07-24 15:21: 28 Yes 10mg 10 mg, Rectal, QDAILYPRN, Starting on Mon07/24/22 at 1021, Until Discontinu ed, Routine, Constipati on [facility] simethicone (GAS RELIEF (SIMETHICON E)) chewable tablet 160 mg 07-24 15:21: 28 Yes 160mg 160 mg, Oral, PC+HSPRN, Starting on Mon07/24/22 at 1021, Until Discontinu ed, Routine, Gas [facility] docusate (COLACE) capsule 200 mg 07-24 15:21: 28 Yes 200mg 200 mg, Oral, QDAILYPRN, Starting on 07/24/22 at 1021, Until Discontinu ed, Routine, Constipati on [facility] magnesium hydroxide (MILK OF MAGNESIA) 400 mg/5 mL suspension 30 mL 07-24 15:21: 28 Yes 30mL 30 mL, Oral, QDAILYPRN, Starting on Mon07/24/22 at 1021, Until Discontinu ed, Routine, Constipati on [facility] lactated ringers IV infusion 1,000 mL 07-24 15:21: 28 07-24 16:25 :00 No 1000mL at 125 mL/hr, 1,000 mL, IV Infusion, PRN, 1 dose, Starting on Mon07/24/22 at 1021, Until Discontinu ed, Routine [facility] 25/iron fum/folic/d betancur (-1 ORAL) 07-23 12:50: 40 07-23 00:00 :00 No Take by mouth. [facility] HYDROcodone -acetaminop hen (NORCO 5) 5-325 mg tablet 1 tablet 07-23 01:41: 26 07-25 01:40 :26 No 1{tbl} 1 tablet, Oral, Q6HPRN, Starting on Mon07/22/22 at 2040, Until Mon07/24/22 at 2039, Routine, Pain (scale 4-6) [facility] Nitrofurant oin&Nit. Macrocryst (MACROBID) 100 mg capsule 100 mg 07-23 01:00: 00 07-30 00:59 :00 No 100mg 100 mg, Oral, BID, 14 doses, First dose (after last modificati on) on Mon07/22/22 at 2000, Last dose on Mon07/29/22 at 0800, Routine
Reason for Anti-Infec tive: Documented Infection< br>Documen brendan Infection Site: Urine
D uration of Therapy: [address] [facility] Nitrofurant oin&Nit. Macrocryst (MACROBID) 100 mg capsule 100 mg 07-23 01:00: 00 07-30 00:59 :00 No 100mg 100 mg, Oral, BID, 14 doses, First dose (after last modificati on) on Mon07/22/22 at 2000, Last dose on Mon07/29/22 at 0800, Routine
Reason for Anti-Infec tive: Documented Infection< br>Documen brendan Infection Site: Urine
D uration of Therapy: [address] [facility] vitamin w/FA tablet 07-23 00:00: 00 Yes [id number] 1{tbl} Take 1 tablet by mouth in the morning. [facility] docusate 100 mg capsule 07-23 00:00: 00 Yes [id number] 200mg Take 2 capsules by mouth once daily as needed for Constipati on. [facility] ferrous sulfate 325 mg (65 mg iron) tablet 07-23 00:00: 00 Yes [id number] 325mg Take 1 tablet by mouth in the morning and 1 tablet in the evening. [facility] ibuprofen 600 mg tablet 07-23 00:00: 00 Yes [id number] 600mg Take 1 tablet by mouth every 6 (six) hours as needed (Pain). Take with food or milk. [facility] vitamin w/FA tablet 07-23 00:00: 00 Yes [id number] 1{tbl} Take 1 tablet by mouth in the morning. [facility] docusate 100 mg capsule 07-23 00:00: 00 Yes [id number] 200mg Take 2 capsules by mouth once daily as needed for Constipati on. [facility] ferrous sulfate 325 mg (65 mg iron) tablet 07-23 00:00: 00 Yes [id number] 325mg Take 1 tablet by mouth in the morning and 1 tablet in the evening. [facility] vitamin w/FA tablet 07-23 00:00: 00 Yes [id number] 1{tbl} Take 1 tablet by mouth in the morning. [facility] docusate 100 mg capsule 07-23 00:00: 00 Yes [id number] 200mg Take 2 capsules by mouth once daily as needed for Constipati on. [facility] ferrous sulfate 325 mg (65 mg iron) tablet 07-23 00:00: 00 Yes [id number] 325mg Take 1 tablet by mouth in the morning and 1 tablet in the evening. [facility] vitamin w/FA tablet 07-23 00:00: 00 Yes [id number] 1{tbl} Take 1 tablet by mouth in the morning. [facility] docusate 100 mg capsule 07-23 00:00: 00 Yes [id number] 200mg Take 2 capsules by mouth once daily as needed for Constipati on. [facility] ferrous sulfate 325 mg (65 mg iron) tablet 07-23 00:00: 00 Yes [id number] 325mg Take 1 tablet by mouth in the morning and 1 tablet in the evening. [facility] vitamin w/FA tablet 07-23 00:00: 00 Yes [id number] 1{tbl} Take 1 tablet by mouth in the morning. [facility] docusate 100 mg capsule 07-23 00:00: 00 Yes [id number] 200mg Take 2 capsules by mouth once daily as needed for Constipati on. [facility] ferrous sulfate 325 mg (65 mg iron) tablet 07-23 00:00: 00 Yes [id number] 325mg Take 1 tablet by mouth in the morning and 1 tablet in the evening. [facility] vitamin w/FA tablet 07-23 00:00: 00 Yes [id number] 1{tbl} Take 1 tablet by mouth in the morning. [facility] docusate 100 mg capsule 07-23 00:00: 00 Yes [id number] 200mg Take 2 capsules by mouth once daily as needed for Constipati on. [facility] ferrous sulfate 325 mg (65 mg iron) tablet 07-23 00:00: 00 Yes [id number] 325mg Take 1 tablet by mouth in the morning and 1 tablet in the evening. [facility] vitamin w/FA tablet 07-23 00:00: 00 Yes [id number] 1{tbl} Take 1 tablet by mouth in the morning. [facility] docusate 100 mg capsule 07-23 00:00: 00 Yes [id number] 200mg Take 2 capsules by mouth once daily as needed for Constipati on. [facility] ferrous sulfate 325 mg (65 mg iron) tablet 07-23 00:00: 00 Yes [id number] 325mg Take 1 tablet by mouth in the morning and 1 tablet in the evening. [facility] vitamin w/FA tablet 07-23 00:00: 00 Yes [id number] 1{tbl} Take 1 tablet by mouth in the morning. [facility] docusate 100 mg capsule 07-23 00:00: 00 Yes [id number] 200mg Take 2 capsules by mouth once daily as needed for Constipati on. [facility] ferrous sulfate 325 mg (65 mg iron) tablet 07-23 00:00: 00 Yes [id number] 325mg Take 1 tablet by mouth in the morning and 1 tablet in the evening. [facility] vitamin w/FA tablet 07-23 00:00: 00 Yes [id number] 1{tbl} Take 1 tablet by mouth in the morning. [facility] docusate 100 mg capsule 07-23 00:00: 00 Yes [id number] 200mg Take 2 capsules by mouth once daily as needed for Constipati on. [facility] ferrous sulfate 325 mg (65 mg iron) tablet 07-23 00:00: 00 Yes [id number] 325mg Take 1 tablet by mouth in the morning and 1 tablet in the evening. [facility] vitamin w/FA tablet 07-23 00:00: 00 Yes [id number] 1{tbl} Take 1 tablet by mouth in the morning. [facility] docusate 100 mg capsule 07-23 00:00: 00 Yes [id number] 200mg Take 2 capsules by mouth once daily as needed for Constipati on. [facility] ferrous sulfate 325 mg (65 mg iron) tablet 07-23 00:00: 00 Yes [id number] 325mg Take 1 tablet by mouth in the morning and 1 tablet in the evening. [facility] vitamin w/FA tablet 07-23 00:00: 00 Yes [id number] 1{tbl} Take 1 tablet by mouth in the morning. [facility] docusate 100 mg capsule 07-23 00:00: 00 Yes [id number] 200mg Take 2 capsules by mouth once daily as needed for Constipati on. [facility] ferrous sulfate 325 mg (65 mg iron) tablet 07-23 00:00: 00 Yes [id number] 325mg Take 1 tablet by mouth in the morning and 1 tablet in the evening. [facility] vitamin w/FA tablet 07-23 00:00: 00 Yes [id number] 1{tbl} Take 1 tablet by mouth in the morning. [facility] docusate 100 mg capsule 07-23 00:00: 00 Yes [id number] 200mg Take 2 capsules by mouth once daily as needed for Constipati on. [facility] ferrous sulfate 325 mg (65 mg iron) tablet 07-23 00:00: 00 Yes [id number] 325mg Take 1 tablet by mouth in the morning and 1 tablet in the evening. [facility] vitamin w/FA tablet 07-23 00:00: 00 Yes [id number] 1{tbl} Take 1 tablet by mouth in the morning. [facility] docusate 100 mg capsule 07-23 00:00: 00 Yes [id number] 200mg Take 2 capsules by mouth once daily as needed for Constipati on. [facility] ferrous sulfate 325 mg (65 mg iron) tablet 07-23 00:00: 00 Yes [id number] 325mg Take 1 tablet by mouth in the morning and 1 tablet in the evening. [facility] vitamin w/FA tablet 07-23 00:00: 00 Yes [id number] 1{tbl} Take 1 tablet by mouth in the morning. [facility] docusate 100 mg capsule 07-23 00:00: 00 Yes [id number] 200mg Take 2 capsules by mouth once daily as needed for Constipati on. [facility] ferrous sulfate 325 mg (65 mg iron) tablet 07-23 00:00: 00 Yes [id number] 325mg Take 1 tablet by mouth in the morning and 1 tablet in the evening. [facility] HYDROcodone -acetaminop hen 5-325 mg tablet 07-23 00:00: 00 07-31 04:59 :00 No [id number] 1{tbl} Take 1 tablet by mouth every 6 (six) hours as needed (Pain scale above 4) for up to 7 days. Do not exceed 3 grams of acetaminop hen in 24 hours. Indication s: acute pain [facility] ibuprofen 600 mg tablet 07-23 00:00: 00 07-24 00:00 :00 No [id number] 600mg Take 1 tablet by mouth every 6 (six) hours as needed (Pain). Take with food or milk. [facility] HYDROcodone -acetaminop hen 5-325 mg tablet 07-23 00:00: 00 07-24 00:00 :00 No [id number] 1{tbl} Take 1 tablet by mouth every 6 (six) hours as needed (Pain scale above 4) for up to 7 days. Do not exceed 3 grams of acetaminop hen in 24 hours. Indication s: acute pain [facility] ibuprofen (IBU) tablet 600 mg 07-22 23:00: 00 Yes 600mg 600 mg, Oral, Q6H, First dose on Mon07/22/22 at 1800, Until Discontinu ed, Routine [facility] ibuprofen (IBU) tablet 600 mg 07-22 23:00: 00 Yes 600mg 600 mg, Oral, Q6H, First dose on Mon07/22/22 at 1800, Until Discontinu ed, Routine [facility] acetaminoph en (TYLENOL) tablet 650 mg 07-22 20:00: 00 Yes 650mg 650 mg, Oral, Q6HPRN, Starting on Mon07/22/22 at 1500, Until Discontinu ed, Routine, [facility] ([facility] 650 mg 07-22 20:00: 00 Yes 650mg 650 mg, Oral, Q6HPRN, Starting on Mon07/22/22 at 1500, Until Discontinu ed, Routine, Pain [facility] acetaminoph en ADULT (OFIRMEV) injection 1,000 mg 07-22 02:00: 00 07-22 15:02 :00 No 1000mg 1,000 mg, IV Infusion, at 400 mL/hr Administer over 15 Minutes, Q6H, 3 doses, First dose (after last modificati on) on Mon07/21/22 at 2100, Last dose on Mon07/22/22 at 0600, Routine
Indicatio n: Perioperat chris Patient [facility] ketorolac (TORADOL) injection 30 mg 07-21 23:00: 00 07-22 16:43 :00 No 30mg 30 mg, Slow IV Push, Q6H, 4 doses, First dose on Mon07/21/22 at 1800, Last dose on Mon07/22/22 at 1200, Routine [facility] lactated ringers IV infusion 1,000 mL 07-21 21:30: 00 07-21 20:12 :06 No 1000mL at 125 mL/hr, 1,000 mL, IV Infusion, ONCE, 1 dose, On Mon07/21/22 at 1630, Routine [facility] diphenhydrA MINE (BENADRYL) injection 25 mg 07-21 20:34: 05 Yes 25mg 25 mg, Slow IV Push, Q6HPRN, Starting on Mon07/21/22 at 1534, Until Discontinu ed, Routine, Itching [facility] diphenhydrA MINE (BENADRYL) tablet 25 mg 07-21 20:34: 05 Yes 25mg 25 mg, Oral, Q6HPRN, Starting on Mon07/21/22 at 1534, Until Discontinu ed, Routine, Sleep, Itching [facility] ondansetron (ZOFRAN (PF)) injection 4 mg 07-21 20:34: 05 Yes 4mg 4 mg, Slow IV Push, Q8HPRN, Starting on Alissa 07/21/22 at 1534, Until Discontinu ed, Routine, Nausea and Vomiting (N/V) [facility] bisacodyL (DULCOLAX) suppository 10 mg 07-21 20:34: 05 Yes 10mg 10 mg, Rectal, QDAILYPRN, Starting on Mon07/21/22 at 1534, Until Discontinu ed, Routine, Constipati on [facility] simethicone (GAS RELIEF (SIMETHICON E)) chewable tablet 160 mg 07-21 20:34: 05 Yes 160mg 160 mg, Oral, PC+HSPRN, Starting on Mon07/21/22 at 1534, Until Discontinu ed, Routine, Gas [facility] docusate (COLACE) capsule 200 mg 07-21 20:34: 05 Yes 200mg 200 mg, Oral, QDAILYPRN, Starting on Alissa 07/21/22 at 1534, Until Discontinu ed, Routine, Constipati on [facility] magnesium hydroxide (MILK OF MAGNESIA) 400 mg/5 mL suspension 30 mL 07-21 20:34: 05 Yes 30mL 30 mL, Oral, QDAILYPRN, Starting on Alissa 07/21/22 at 1534, Until Discontinu ed, Routine, Constipati on [facility] diphenhydrA MINE (BENADRYL) injection 25 mg 07-21 20:34: 05 Yes 25mg 25 mg, Slow IV Push, Q6HPRN, Starting on Alissa 07/21/22 at 1534, Until Discontinu ed, Routine, Itching [facility] diphenhydrA MINE (BENADRYL) tablet 25 mg 07-21 20:34: 05 Yes 25mg 25 mg, Oral, Q6HPRN, Starting on Alissa 07/21/22 at 1534, Until Discontinu ed, Routine, Sleep, Itching [facility] ondansetron (ZOFRAN (PF)) injection 4 mg 07-21 20:34: 05 Yes 4mg 4 mg, Slow IV Push, Q8HPRN, Starting on Mon07/21/22 at 1534, Until Discontinu ed, Routine, Nausea and Vomiting (N/V) [facility] bisacodyL (DULCOLAX) suppository 10 mg 07-21 20:34: 05 Yes 10mg 10 mg, Rectal, QDAILYPRN, Starting on Mon07/21/22 at 1534, Until Discontinu ed, Routine, Constipati on [facility] simethicone (GAS RELIEF (SIMETHICON E)) chewable tablet 160 mg 07-21 20:34: 05 Yes 160mg 160 mg, Oral, PC+HSPRN, Starting on Mon07/21/22 at 1534, Until Discontinu ed, Routine, Gas [facility] docusate (COLACE) capsule 200 mg 07-21 20:34: 05 Yes 200mg 200 mg, Oral, QDAILYPRN, Starting on Mon07/21/22 at 1534, Until Discontinu ed, Routine, Constipati on [facility] magnesium hydroxide (MILK OF MAGNESIA) 400 mg/5 mL suspension 30 mL 07-21 20:34: 05 Yes 30mL 30 mL, Oral, QDAILYPRN, Starting on Mon07/21/22 at 1534, Until Discontinu ed, Routine, Constipati on [facility] lactated ringers IV infusion 1,000 mL 07-21 20:34: 05 07-22 00:14 :00 No 1000mL at 125 mL/hr, 1,000 mL, IV Infusion, PRN, 1 dose, Starting on Mon07/21/22 at 1534, Until Discontinu ed, Routine [facility] ceFAZolin (ANCEF) 2,000 mg in NaCl 0.9% (NS) 100 mL MINI-BAG 07-21 19:30: 00 07-21 19:07 :00 No 2000mg 2,000 mg, IV Piggyback, ONCE, 1 dose, On Mon07/21/22 at 1430, Administer over 30 Minutes, 100 mL
Reas on for Anti-Infec tive: Surgical Prophylaxi s
Surgi lottie Prophylaxi s: Abdominal< br>Duratio n of therapy: within [address] [facility] terbutaline (BRETHINE) injection 0.25 mg 07-21 16:37: 33 07-21 20:41 :35 No .25mg 0.25 mg, Subcutaneo us, Q15MIN PRN, 3 doses, Starting on Alissa 07/21/22 at 1137, Until Alissa 07/21/22 at 1541, Routine, Tachysysto le with NRFHT [facility] sodium citrate-cit diego acid (BICITRA) 500-334 mg/5 mL solution 30 mL 07-21 16:32: 59 07-21 18:32 :00 No 30mL 30 mL, Oral, PRE-PROCED URE ONCE, 1 dose, Starting on Alissa 07/21/22 at 1132, Until Discontinu ed, Routine, Surgery/Pr ocedure [facility] lactated ringers IV infusion 500 mL 07-21 16:32: 59 07-21 20:41 :35 No 500mL at 999 mL/hr, 500 mL, IV Infusion, PRN - SEE INSTRUCTIO NS, Starting on Alissa 07/21/22 at 1132, Until Alissa 07/21/22 at 1541, Routine [facility] [id number] IV infusion 1,000 mL 07-21 16:32: 59 07-21 20:41 :35 No 1000mL at 1-125 mL/hr, IV Infusion, TITRATE, Starting on Alissa 07/21/22 at 1132, Until Alissa 07/21/22 at 1541, Routine [facility] 25/iron fum/folic/d betancur (-1 ORAL) 07-21 11:32: 19 Yes Take by mouth. [facility] Nitrofurant oin&Nit. Macrocryst 100 mg capsule 07-19 00:00: 00 Yes [id number] 100mg Take 1 capsule by mouth in the morning and 1 capsule in the evening. [facility] Nitrofurant oin&Nit. Macrocryst 100 mg capsule 07-19 00:00: 00 Yes [id number] 100mg Take 1 capsule by mouth in the morning and 1 capsule in the evening. [facility] Nitrofurant oin&Nit. Macrocryst 100 mg capsule 07-19 00:00: 00 Yes [id number] 100mg Take 1 capsule by mouth in the morning and 1 capsule in the evening. [facility] Nitrofurant oin&Nit. Macrocryst 100 mg capsule 07-19 00:00: 00 07-24 00:00 :00 No [id number] 100mg Take 1 capsule by mouth in the morning and 1 capsule in the evening. [facility] 25/iron fum/folic/d betancur (-1 ORAL) 07-17 12:50: 57 Yes Take by mouth. [facility] 25/iron fum/folic/d betancur (-1 ORAL) 07-17 12:50: 57 Yes Take by mouth. [facility] 25/iron fum/folic/d betancur (-1 ORAL) 07-11 03:19: 16 Yes Take by mouth. [facility] 25/iron fum/folic/d betancur (-1 ORAL) 07-11 03:19: 16 Yes Take by mouth. [facility] 25/iron fum/folic/d betancur (-1 ORAL) 07-11 03:19: 16 Yes Take by mouth. [facility] terbutaline (BRETHINE) injection 0.25 mg 07-06 08:45: 00 07-06 07:59 :00 No .25mg 0.25 mg, Subcutaneo us, ONCE, 1 dose, On Mon07/06/22 at 0345, Routine [facility] NaCl 0.9% (NS) bolus infusion 1,000 mL 07-06 06:30: 00 07-06 06:30 :27 No 1000mL at 999 mL/hr, 1,000 mL, IV Infusion, ONCE, 1 dose, On Mon07/06/22 at 0130, STAT [facility] 25/iron fum/folic/d betancur (-1 ORAL) - 05:26: 51 Yes Take by mouth. [facility] 25/iron fum/folic/d betancur (-1 ORAL) 07-06 05:26: 51 Yes Take by mouth. [facility] 25/iron fum/folic/d betancur (-1 ORAL) 07-06 05:26: 51 Yes Take by mouth. [facility] metroNIDAZO LE 500 mg tablet 2022-0 2-16 00:00: 00 04-22 05:59 :00 No [id number] 500mg Take 1 tablet by mouth in the morning and 1 tablet in the evening. Do all this for [address] [facility] metroNIDAZO LE 500 mg tablet 2022-0 2-16 00:00: 00 04-22 05:59 :00 No [id number] 500mg Take 1 tablet by mouth in the morning and 1 tablet in the evening. Do all this for [address] [facility] metroNIDAZO LE 500 mg tablet 2022-0 2-16 00:00: 00 04-22 05:59 :00 No [id number] 500mg Take 1 tablet by mouth in the morning and 1 tablet in the evening. Do all this for [address] [facility] metroNIDAZO LE 500 mg tablet 2022-0 2-16 00:00: 00 04-22 05:59 :00 No [id number] 500mg Take 1 tablet by mouth in the morning and 1 tablet in the evening. Do all this for [address] [facility] metroNIDAZO LE 500 mg tablet 2022-0 2-16 00:00: 00 04-22 05:59 :00 No [id number] 500mg Take 1 tablet by mouth in the morning and 1 tablet in the evening. Do all this for [address] [facility] hydroxyprog esterone(PF ) (KATHLEEN AUTO-INJECT OR) 275 mg/1.1 mL injection 275 mg 3-0 2-02 06:00: 00 07-21 04:59 :[id number] [facility] hydroxyprog esterone(PF ) (KATHLEEN AUTO-INJECT OR) 275 mg/1.1 mL injection 275 mg 3-0 2-02 06:00: 00 07-21 04:59 :[id number] [facility] hydroxyprog esterone(PF ) (KATHLEEN AUTO-INJECT OR) 275 mg/1.1 mL injection 275 mg 3-0 2-02 06:00: 00 07-21 04:59 :00 No [id number] 275mg 275 mg, Subcutaneo us, QWEEKLY, 16 doses, First dose on Alissa 03/31/22 at 0000, Last dose on Alissa 07/14/22 at 0000, Routine [facility] hydroxyprog esterone(PF ) (KATHLEEN AUTO-INJECT OR) 275 mg/1.1 mL injection 275 mg 3-0 2-02 06:00: 00 07-21 04:59 :[id number] [facility] hydroxyprog esterone(PF ) (KATHLEEN AUTO-INJECT OR) 275 mg/1.1 mL injection 275 mg 3-0 2-02 06:00: 00 07-21 04:59 :00 No [id number] 275mg 275 mg, Subcutaneo us, QWEEKLY, 16 doses, First dose on Alissa 03/31/22 at 0000, Last dose on Alissa 07/14/22 at 0000, Routine [facility] hydroxyprog esterone(PF ) (KATHLEEN AUTO-INJECT OR) 275 mg/1.1 mL injection 275 mg 3-0 2-02 06:00: 00 07-21 04:59 :[id number] [facility] hydroxyprog esterone(PF ) (KATHLEEN AUTO-INJECT OR) 275 mg/1.1 mL injection 275 mg 3-0 2-02 06:00: 00 07-21 04:59 :[id number] [facility] hydroxyprog esterone(PF ) (KATHLEEN AUTO-INJECT OR) 275 mg/1.1 mL injection 275 mg 3-0 2-02 06:00: 00 07-21 04:59 :[id number] [facility] hydroxyprog esterone(PF ) (KATHLEEN AUTO-INJECT OR) 275 mg/1.1 mL injection 275 mg 3-0 2-02 06:00: 00 07-21 04:59 :[id number] [facility] hydroxyprog esterone(PF ) (KATHLEEN AUTO-INJECT OR) 275 mg/1.1 mL injection 275 mg 3-0 2-02 06:00: 00 07-21 04:59 :[id number] [facility] hydroxyprog esterone(PF ) (KATHLEEN AUTO-INJECT OR) 275 mg/1.1 mL injection 275 mg 3-0 2-02 06:00: 00 07-21 04:59 :00 No [id number] 275mg 275 mg, Subcutaneo us, QWEEKLY, 16 doses, First dose on Alissa 03/31/22 at 0000, Last dose on Alissa 07/14/22 at 0000, Routine [facility] hydroxyprog esterone(PF ) (KATHLEEN AUTO-INJECT OR) 275 mg/1.1 mL injection 275 mg 3-0 2-02 06:00: 00 07-21 04:59 :[id number] [facility] hydroxyprog esterone(PF ) (KATHLEEN AUTO-INJECT OR) 275 mg/1.1 mL injection 275 mg 3-0 2-02 06:00: 00 07-21 04:59 :[id number] [facility] hydroxyprog esterone(PF ) (KATHLEEN AUTO-INJECT OR) 275 mg/1.1 mL injection 275 mg 3-0 2-02 06:00: 00 07-21 04:59 :[id number] [facility] hydroxyprog esterone(PF ) (KATHLEEN AUTO-INJECT OR) 275 mg/1.1 mL injection 275 mg 3-0 2-02 06:00: 00 07-21 04:59 :00 No [id number] 275mg 275 mg, Subcutaneo us, QWEEKLY, 16 doses, First dose on Alissa 03/31/22 at 0000, Last dose on Alissa 07/14/22 at 0000, Routine [facility] hydroxyprog esterone(PF ) (KATHLEEN AUTO-INJECT OR) 275 mg/1.1 mL injection 275 mg 3-0 2- 06:00: 00 07-21 04:59 :[id number] [facility] hydroxyprog esterone(PF ) (KATHLEEN AUTO-INJECT OR) 275 mg/1.1 mL injection 275 mg 2022-0 2- 06:00: 00 07-21 04:59 :00 No [id number] 275mg 275 mg, Subcutaneo us, QWEEKLY, 16 doses, First dose on Alissa 03/31/22 at 0000, Last dose on Alissa 07/14/22 at 0000, Routine [facility] hydroxyprog esterone(PF ) (KATHLEEN AUTO-INJECT OR) 275 mg/1.1 mL injection 275 mg 3-0 2-02 06:00: 00 07-21 04:59 :[id number] [facility] hydroxyprog esterone(PF ) (KATHLEEN AUTO-INJECT OR) 275 mg/1.1 mL injection 275 mg 3-0 2-02 06:00: 00 07-21 04:59 :00 No [id number] 275mg 275 mg, Subcutaneo us, QWEEKLY, 16 doses, First dose on Alissa 03/31/22 at 0000, Last dose on Alissa 07/14/22 at 0000, Routine [facility] hydroxyprog esterone(PF ) (KATHLEEN AUTO-INJECT OR) 275 mg/1.1 mL injection 275 mg 3-0 2-02 06:00: 00 07-21 04:59 :[id number] [facility] hydroxyprog esterone(PF ) (KATHLEEN AUTO-INJECT OR) 275 mg/1.1 mL injection 275 mg 3-0 2-02 06:00: 00 07-21 04:59 :00 No [id number] 275mg 275 mg, Subcutaneo us, QWEEKLY, 16 doses, First dose on Mon03/31/22 at 0000, Last dose on Mon07/14/22 at 0000, Routine [facility] hydroxyprog esterone(PF ) (KATHLEEN AUTO-INJECT OR) 275 mg/1.1 mL injection 275 mg 3-0 2- 06:00: 00 07-21 04:59 :[id number] [facility] hydroxyprog esterone(PF ) (KATHLEEN AUTO-INJECT OR) 275 mg/1.1 mL injection 275 mg 3-0 2- 06:00: 00 07-21 04:59 :[id number] [facility] hydroxyprog esterone(PF ) (KATHLEEN AUTO-INJECT OR) 275 mg/1.1 mL injection 275 mg 3-0 2- 06:00: 00 07-21 04:59 :00 No [id number] 275mg 275 mg, Subcutaneo us, QWEEKLY, 16 doses, First dose on Mon03/31/22 at 0000, Last dose on Mon07/14/22 at 0000, Routine [facility] hydroxyprog esterone(PF ) (KATHLEEN AUTO-INJECT OR) 275 mg/1.1 mL injection 275 mg 3-0 2-02 06:00: 00 07-21 04:59 :[id number] [facility] hydroxyprog esterone(PF ) (KATHLEEN AUTO-INJECT OR) 275 mg/1.1 mL injection 275 mg 3-0 2-02 06:00: 00 07-21 04:59 :00 No [id number] 275mg 275 mg, Subcutaneo us, QWEEKLY, 16 doses, First dose on Alissa 03/31/22 at 0000, Last dose on Alissa 07/14/22 at 0000, Routine [facility] hydroxyprog esterone(PF ) (KATHLEEN AUTO-INJECT OR) 275 mg/1.1 mL injection 275 mg 2023-0 2-02 06:00: 00 07-21 04:59 :[id number] [facility] hydroxyprog esterone(PF ) (KATHLEEN AUTO-INJECT OR) 275 mg/1.1 mL injection 275 mg 3-0 2-02 06:00: 00 07-21 04:59 :00 No [id number] 275mg 275 mg, Subcutaneo us, QWEEKLY, 16 doses, First dose on Alissa 03/31/22 at 0000, Last dose on Alissa 07/14/22 at 0000, Routine [facility] hydroxyprog esterone(PF ) (KATHLEEN AUTO-INJECT OR) 275 mg/1.1 mL injection 275 mg 3-0 2-02 06:00: 00 07-21 04:59 :[id number] [facility] hydroxyprog esterone(PF ) (KATHLEEN AUTO-INJECT OR) 275 mg/1.1 mL injection 275 mg 3-0 2-02 06:00: 00 07-21 04:59 :00 No [id number] 275mg 275 mg, Subcutaneo us, QWEEKLY, 16 doses, First dose on Alissa 03/31/22 at 0000, Last dose on Alissa 07/14/22 at 0000, Routine [facility] hydroxyprog esterone(PF ) (KATHLEEN AUTO-INJECT OR) 275 mg/1.1 mL injection 275 mg 3-0 2-02 06:00: 00 07-21 04:59 :00 No [id number] [facility] hydroxyprog esterone(PF ) (KATHLEEN AUTO-INJECT OR) 275 mg/1.1 mL injection 275 mg 3-0 2-02 06:00: 00 07-21 04:59 :00 No [id number] 275mg 275 mg, Subcutaneo us, QWEEKLY, 16 doses, First dose on Alissa 03/31/22 at 0000, Last dose on Alissa 07/14/22 at 0000, Routine [facility] hydroxyprog esterone(PF ) (KATHLEEN AUTO-INJECT OR) 275 mg/1.1 mL injection 275 mg 3-0 2-02 06:00: 00 07-21 04:59 :[id number] [facility] hydroxyprog esterone(PF ) (KATHLEEN AUTO-INJECT OR) 275 mg/1.1 mL injection 275 mg 2022-0 2-02 06:00: 00 07-21 04:59 :00 No [id number] 275mg 275 mg, Subcutaneo us, QWEEKLY, 16 doses, First dose on Alissa 03/31/22 at 0000, Last dose on Alissa 07/14/22 at 0000, Routine [facility] hydroxyprog esterone(PF ) (KATHLEEN AUTO-INJECT OR) 275 mg/1.1 mL injection 275 mg 3-0 2-02 06:00: 00 07-21 04:59 :[id number] [facility] hydroxyprog esterone(PF ) (KATHLEEN AUTO-INJECT OR) 275 mg/1.1 mL injection 275 mg 3-0 2-02 06:00: 00 07-21 04:59 :[id number] [facility] hydroxyprog esterone(PF ) (KATHLEEN AUTO-INJECT OR) 275 mg/1.1 mL injection 275 mg 3-0 2-02 06:00: 00 07-21 04:59 :[id number] [facility] hydroxyprog esterone(PF ) (KATHLEEN AUTO-INJECT OR) 275 mg/1.1 mL injection 275 mg 3-0 2-02 06:00: 00 07-21 04:59 :[id number] [facility] hydroxyprog esterone(PF ) (KATHLEEN AUTO-INJECT OR) 275 mg/1.1 mL injection 275 mg 2023-0 2-02 06:00: 00 07-21 04:59 :[id number] [facility] hydroxyprog esterone(PF ) (KATHLEEN AUTO-INJECT OR) 275 mg/1.1 mL injection 275 mg 2023-0 2-02 06:00: 00 07-21 04:59 :[id number] [facility] hydroxyprog esterone(PF ) (KATHLEEN AUTO-INJECT OR) 275 mg/1.1 mL injection 275 mg 2023-0 2-02 06:00: 00 07-21 04:59 :[id number] [facility] hydroxyprog esterone(PF ) (KATHLEEN AUTO-INJECT OR) 275 mg/1.1 mL injection 275 mg 2023-0 2-02 06:00: 00 07-21 04:59 :[id number] [facility] hydroxyprog esterone(PF ) (KATHLEEN AUTO-INJECT OR) 275 mg/1.1 mL injection 275 mg 3-0 2-02 06:00: 00 07-21 04:59 :[id number] [facility] hydroxyprog esterone(PF ) (KATHLEEN AUTO-INJECT OR) 275 mg/1.1 mL injection 275 mg 3-0 2-02 06:00: 00 07-21 04:59 :[id number] [facility] hydroxyprog esterone(PF ) (KATHLEEN AUTO-INJECT OR) 275 mg/1.1 mL injection 275 mg 3-0 2-02 06:00: 00 07-21 04:59 :[id number] [facility] hydroxyprog esterone(PF ) (KATHLEEN AUTO-INJECT OR) 275 mg/1.1 mL injection 275 mg 2023-0 1-26 16:45: 00 03-24 15:59 :00 No [id number] 275mg [facility] hydroxyprog esterone(PF ) (KATHLEEN AUTO-INJECT OR) 275 mg/1.1 mL injection 275 mg 03-24 16:45: 00 03-24 15:59 :00 No [id number] 275mg 275 mg, Subcutaneo us, ONCE, 1 dose, On Alissa 03/24/22 at 1045, Routine [facility] hydroxyprog esterone,PF , 275 mg/1.1 mL injection 03-07 00:00: 00 Yes 275mg inject 1.1 mL under the skin weekly. [facility] hydroxyprog esterone,PF , 275 mg/1.1 mL injection 03-07 00:00: 00 Yes 275mg inject 1.1 mL under the skin weekly. [facility] hydroxyprog esterone,PF , 275 mg/1.1 mL injection 03-07 00:00: 00 Yes [id number] 275mg inject 1.1 mL under the skin weekly. [facility] hydroxyprog esterone,PF , 275 mg/1.1 mL injection 03-07 00:00: 00 Yes 275mg inject 1.1 mL under the skin weekly. [facility] hydroxyprog esterone,PF , 275 mg/1.1 mL injection 03-07 00:00: 00 Yes [id number] 275mg inject 1.1 mL under the skin weekly. [facility] hydroxyprog esterone,PF , 275 mg/1.1 mL injection 03-07 00:00: 00 Yes 275mg inject 1.1 mL under the skin weekly. [facility] hydroxyprog esterone,PF , 275 mg/1.1 mL injection 03-07 00:00: 00 Yes [id number] 275mg inject 1.1 mL under the skin weekly. [facility] hydroxyprog esterone,PF , 275 mg/1.1 mL injection 03-07 00:00: 00 Yes 275mg inject 1.1 mL under the skin weekly. [facility] hydroxyprog esterone,PF , 275 mg/1.1 mL injection 03-07 00:00: 00 Yes [id number] 275mg inject 1.1 mL under the skin weekly. [facility] hydroxyprog esterone,PF , 275 mg/1.1 mL injection 2022-0 03-07 00:00: 00 Yes 275mg inject 1.1 mL under the skin weekly. [facility] hydroxyprog esterone,PF , 275 mg/1.1 mL injection 3-0 03-07 00:00: 00 Yes [id number] 275mg inject 1.1 mL under the skin weekly. [facility] , 275 mg/1.1 mL injection 0 03-07 00:00: 00 Yes 275mg inject 1.1 mL under the skin weekly. [facility] hydroxyprog esterone,PF , 275 mg/1.1 mL injection 0 03-07 00:00: 00 Yes [id number] 275mg inject 1.1 mL under the skin weekly. [facility] hydroxyprog esterone,PF , 275 mg/1.1 mL injection 0 03-07 00:00: 00 Yes 275mg inject 1.1 mL under the skin weekly. [facility] hydroxyprog esterone,PF , 275 mg/1.1 mL injection 0 03-07 00:00: 00 Yes [id number] 275mg inject 1.1 mL under the skin weekly. [facility] hydroxyprog esterone,PF , 275 mg/1.1 mL injection 3-0 03-07 00:00: 00 Yes 275mg inject 1.1 mL under the skin weekly. [facility] hydroxyprog esterone,PF , 275 mg/1.1 mL injection 3-0 03-07 00:00: 00 Yes [id number] 275mg inject 1.1 mL under the skin weekly. [facility] hydroxyprog esterone,PF , 275 mg/1.1 mL injection 3-0 03-07 00:00: 00 Yes 275mg inject 1.1 mL under the skin weekly. [facility] hydroxyprog esterone,PF , 275 mg/1.1 mL injection 3-0 03-07 00:00: 00 Yes [id number] 275mg inject 1.1 mL under the skin weekly. [facility] hydroxyprog esterone,PF , 275 mg/1.1 mL injection 3-0 03-07 00:00: 00 Yes 275mg inject 1.1 mL under the skin weekly. [facility] hydroxyprog esterone,PF , 275 mg/1.1 mL injection 3-0 03-07 00:00: 00 Yes [id number] 275mg inject 1.1 mL under the skin weekly. [facility] hydroxyprog esterone,PF , 275 mg/1.1 mL injection 3-0 03-07 00:00: 00 Yes 275mg inject 1.1 mL under the skin weekly. [facility] hydroxyprog esterone,PF , 275 mg/1.1 mL injection 0 03-07 00:00: 00 Yes [id number] 275mg inject 1.1 mL under the skin weekly. [facility] hydroxyprog esterone,PF , 275 mg/1.1 mL injection 2022-0 03-07 00:00: 00 Yes 275mg inject 1.1 mL under the skin weekly. [facility] hydroxyprog esterone,PF , 275 mg/1.1 mL injection 2022-0 03-07 00:00: 00 Yes [id number] 275mg inject 1.1 mL under the skin weekly. [facility] hydroxyprog esterone,PF , 275 mg/1.1 mL injection 2022-0 03-07 00:00: 00 Yes 275mg inject 1.1 mL under the skin weekly. [facility] hydroxyprog esterone,PF , 275 mg/1.1 mL injection 2022-0 03-07 00:00: 00 Yes [id number] 275mg inject 1.1 mL under the skin weekly. [facility] hydroxyprog esterone,PF , 275 mg/1.1 mL injection 3-0 03-07 00:00: 00 Yes 275mg inject 1.1 mL under the skin weekly. [facility] hydroxyprog esterone,PF , 275 mg/1.1 mL injection 3-0 03-07 00:00: 00 Yes [id number] 275mg inject 1.1 mL under the skin weekly. [facility] hydroxyprog esterone,PF , 275 mg/1.1 mL injection 0 03-07 00:00: 00 Yes 275mg inject 1.1 mL under the skin weekly. [facility] hydroxyprog esterone,PF , 275 mg/1.1 mL injection 0 03-07 00:00: 00 Yes [id number] 275mg inject 1.1 mL under the skin weekly. [facility] hydroxyprog esterone,PF , 275 mg/1.1 mL injection 0 03-07 00:00: 00 Yes 275mg inject 1.1 mL under the skin weekly. [facility] hydroxyprog esterone,PF , 275 mg/1.1 mL injection 0 03-07 00:00: 00 Yes [id number] 275mg inject 1.1 mL under the skin weekly. [facility] hydroxyprog esterone,PF , 275 mg/1.1 mL injection 0 03-07 00:00: 00 Yes 275mg inject 1.1 mL under the skin weekly. [facility] hydroxyprog esterone,PF , 275 mg/1.1 mL injection 0 03-07 00:00: 00 Yes [id number] 275mg inject 1.1 mL under the skin weekly. [facility] hydroxyprog esterone,PF , 275 mg/1.1 mL injection 0 03-07 00:00: 00 Yes 275mg inject 1.1 mL under the skin weekly. [facility] hydroxyprog esterone,PF , 275 mg/1.1 mL injection 0 03-07 00:00: 00 Yes [id number] 275mg inject 1.1 mL under the skin weekly. [facility] hydroxyprog esterone,PF , 275 mg/1.1 mL injection 3-0 03-07 00:00: 00 Yes 275mg inject 1.1 mL under the skin weekly. [facility] hydroxyprog esterone,PF , 275 mg/1.1 mL injection 3-0 03-07 00:00: 00 Yes [id number] 275mg inject 1.1 mL under the skin weekly. [facility] hydroxyprog esterone,PF , 275 mg/1.1 mL injection 2023-0 03-07 00:00: 00 Yes 275mg inject 1.1 mL under the skin weekly. [facility] hydroxyprog esterone,PF , 275 mg/1.1 mL injection 3-0 03-07 00:00: 00 Yes [id number] 275mg inject 1.1 mL under the skin weekly. [facility] hydroxyprog esterone,PF , 275 mg/1.1 mL injection 3-0 03-07 00:00: 00 Yes 275mg inject 1.1 mL under the skin weekly. [facility] hydroxyprog esterone,PF , 275 mg/1.1 mL injection 3-0 03-07 00:00: 00 Yes [id number] 275mg inject 1.1 mL under the skin weekly. [facility] hydroxyprog esterone,PF , 275 mg/1.1 mL injection 3-0 03-07 00:00: 00 Yes 275mg inject 1.1 mL under the skin weekly. [facility] hydroxyprog esterone,PF , 275 mg/1.1 mL injection 3-0 03-07 00:00: 00 Yes [id number] 275mg inject 1.1 mL under the skin weekly. [facility] hydroxyprog esterone,PF , 275 mg/1.1 mL injection 2022-0 03-07 00:00: 00 Yes 275mg inject 1.1 mL under the skin weekly. [facility] hydroxyprog esterone,PF , 275 mg/1.1 mL injection 3-0 03-07 00:00: 00 Yes [id number] 275mg inject 1.1 mL under the skin weekly. [facility] hydroxyprog esterone,PF , 275 mg/1.1 mL injection 3-0 03-07 00:00: 00 Yes 275mg inject 1.1 mL under the skin weekly. [facility] hydroxyprog esterone,PF , 275 mg/1.1 mL injection 2023-0 03-07 00:00: 00 Yes [id number] 275mg inject 1.1 mL under the skin weekly. [facility] hydroxyprog esterone,PF , 275 mg/1.1 mL injection 3-0 03-07 00:00: 00 Yes 275mg inject 1.1 mL under the skin weekly. [facility] hydroxyprog esterone,PF , 275 mg/1.1 mL injection 0 03-07 00:00: 00 Yes [id number] 275mg inject 1.1 mL under the skin weekly. [facility] hydroxyprog esterone,PF , 275 mg/1.1 mL injection 0 03-07 00:00: 00 Yes 275mg inject 1.1 mL under the skin weekly. [facility] hydroxyprog esterone,PF , 275 mg/1.1 mL injection 0 03-07 00:00: 00 Yes [id number] 275mg inject 1.1 mL under the skin weekly. [facility] hydroxyprog esterone,PF , 275 mg/1.1 mL injection 0 03-07 00:00: 00 Yes 275mg inject 1.1 mL under the skin weekly. [facility] hydroxyprog esterone,PF , 275 mg/1.1 mL injection 0 03-07 00:00: 00 Yes [id number] 275mg inject 1.1 mL under the skin weekly. [facility] hydroxyprog esterone,PF , 275 mg/1.1 mL injection 0 03-07 00:00: 00 Yes 275mg inject 1.1 mL under the skin weekly. [facility] hydroxyprog esterone,PF , 275 mg/1.1 mL injection 0 03-07 00:00: 00 Yes [id number] 275mg inject 1.1 mL under the skin weekly. [facility] hydroxyprog esterone,PF , 275 mg/1.1 mL injection 0 03-07 00:00: 00 Yes 275mg inject 1.1 mL under the skin weekly. [facility] hydroxyprog esterone,PF , 275 mg/1.1 mL injection 2022-0 03-07 00:00: 00 Yes [id number] 275mg inject 1.1 mL under the skin weekly. [facility] hydroxyprog esterone,PF , 275 mg/1.1 mL injection 2022-0 03-07 00:00: 00 Yes 275mg inject 1.1 mL under the skin weekly. [facility] hydroxyprog esterone,PF , 275 mg/1.1 mL injection 0 03-07 00:00: 00 Yes [id number] 275mg inject 1.1 mL under the skin weekly. [facility] hydroxyprog esterone,PF , 275 mg/1.1 mL injection 30 03-07 00:00: 00 Yes 275mg inject 1.1 mL under the skin weekly. [facility] hydroxyprog esterone,PF , 275 mg/1.1 mL injection 0 03-07 00:00: 00 Yes [id number] 275mg inject 1.1 mL under the skin weekly. [facility] hydroxyprog esterone,PF , 275 mg/1.1 mL injection 0 03-07 00:00: 00 Yes 275mg inject 1.1 mL under the skin weekly. [facility] hydroxyprog esterone,PF , 275 mg/1.1 mL injection 0 03-07 00:00: 00 Yes [id number] 275mg inject 1.1 mL under the skin weekly. [facility] hydroxyprog esterone,PF , 275 mg/1.1 mL injection 0 03-07 00:00: 00 Yes 275mg inject 1.1 mL under the skin weekly. [facility] hydroxyprog esterone,PF , 275 mg/1.1 mL injection 0 03-07 00:00: 00 Yes [id number] 275mg inject 1.1 mL under the skin weekly. [facility] hydroxyprog esterone,PF , 275 mg/1.1 mL injection 30 03-07 00:00: 00 Yes 275mg inject 1.1 mL under the skin weekly. [facility] hydroxyprog esterone,PF , 275 mg/1.1 mL injection 30 03-07 00:00: 00 Yes [id number] 275mg inject 1.1 mL under the skin weekly. [facility] hydroxyprog esterone,PF , 275 mg/1.1 mL injection 3-0 03-07 00:00: 00 Yes 275mg inject 1.1 mL under the skin weekly. [facility] hydroxyprog esterone,PF , 275 mg/1.1 mL injection 03-07 00:00: 00 Yes [id number] 275mg inject 1.1 mL under the skin weekly. [facility] hydroxyprog esterone,PF , 275 mg/1.1 mL injection 03-07 00:00: 00 Yes 275mg inject 1.1 mL under the skin weekly. [facility] hydroxyprog esterone,PF , 275 mg/1.1 mL injection 03-07 00:00: 00 Yes [id number] 275mg inject 1.1 mL under the skin weekly. [facility] hydroxyprog esterone,PF , 275 mg/1.1 mL injection 03-07 00:00: 00 07-21 00:00 :00 No 275mg inject 1.1 mL under the skin weekly. [facility] hydroxyprog esterone,PF , 275 mg/1.1 mL injection 03-07 00:00: 00 07-21 00:00 :00 No [id number] 275mg inject 1.1 mL under the skin weekly. [facility] hydroxyprog esterone,PF , 275 mg/1.1 mL injection 03-07 00:00: 00 07-21 00:00 :00 No 275mg inject 1.1 mL under the skin weekly. [facility] hydroxyprog esterone,PF , 275 mg/1.1 mL injection 03-07 00:00: 00 07-21 00:00 :00 No [id number] 275mg inject 1.1 mL under the skin weekly. [facility] hydroxyprog esterone caproate, ppres, 250 mg/mL injection 2021-02 00:00: 00 Yes [id number] 250mg 1 mL by Intramuscu lar route weekly. [facility] hydroxyprog esterone caproate, ppres, 250 mg/mL injection 2021-02 00:00: 00 03-07 00:00 :00 No [id number] 250mg 1 mL by Intramuscu lar route weekly. [facility] HYDROXYprog est,PF,,pre g presv, 250 mg/mL (1 mL) injection 2021-02 00:00: 00 Yes [facility] HYDROXYprog est,PF,,pre g presv, 250 mg/mL (1 mL) injection 2021-02 00:00: 00 Yes [facility] HYDROXYprog est,PF,,pre g presv, 250 mg/mL (1 mL) injection 2021-02 00:00: 00 Yes [facility] HYDROXYprog est,PF,,pre g presv, 250 mg/mL (1 mL) injection 2021-02 00:00: 00 Yes [facility] HYDROXYprog est,PF,,pre g presv, 250 mg/mL (1 mL) injection 2021-02 00:00: 00 Yes [facility] HYDROXYprog est,PF,,pre g presv, 250 mg/mL (1 mL) injection 2021-02 00:00: 00 Yes [facility] HYDROXYprog est,PF,,pre g presv, 250 mg/mL (1 mL) injection 2021-02 00:00: 00 Yes [facility],,pre g presv, 250 mg/mL (1 mL) injection 2021-02 00:00: 00 Yes [facility] HYDROXYprog est,PF,,pre g presv, 250 mg/mL (1 mL) injection 2021-02 00:00: 00 Yes [facility] HYDROXYprog est,PF,,pre g presv, 250 mg/mL (1 mL) injection 2021-02 00:00: 00 Yes [facility] HYDROXYprog est,PF,,pre g presv, 250 mg/mL (1 mL) injection 2021-02 00:00: 00 Yes [facility] HYDROXYprog est,PF,,pre g presv, 250 mg/mL (1 mL) injection 2021-02 00:00: 00 Yes [facility] HYDROXYprog est,PF,,pre g presv, 250 mg/mL (1 mL) injection 2021-02 00:00: 00 Yes [facility] HYDROXYprog est,PF,,pre g presv, 250 mg/mL (1 mL) injection 2021-02 00:00: 00 Yes [facility] HYDROXYprog est,PF,,pre g presv, 250 mg/mL (1 mL) injection 2021-02 00:00: 00 Yes [facility] HYDROXYprog est,PF,,pre g presv, 250 mg/mL (1 mL) injection 2021-02 00:00: 00 Yes [facility] HYDROXYprog est,PF,,pre g presv, 250 mg/mL (1 mL) injection 2021-02 00:00: 00 Yes [facility] HYDROXYprog est,PF,,pre g presv, 250 mg/mL (1 mL) injection 2021-02 00:00: 00 Yes [facility] HYDROXYprog est,PF,,pre g presv, 250 mg/mL (1 mL) injection 2021-02 00:00: 00 Yes [facility] HYDROXYprog est,PF,,pre g presv, 250 mg/mL (1 mL) injection 2021-02 00:00: 00 Yes [facility] HYDROXYprog est,PF,,pre g presv, 250 mg/mL (1 mL) injection 2021-02 00:00: 00 Yes [facility] HYDROXYprog est,PF,,pre g presv, 250 mg/mL (1 mL) injection 2021-02 00:00: 00 Yes [facility] HYDROXYprog est,PF,,pre g presv, 250 mg/mL (1 mL) injection 2021-02 00:00: 00 Yes [facility] HYDROXYprog est,PF,,pre g presv, 250 mg/mL (1 mL) injection 2021-02 00:00: 00 Yes [facility] HYDROXYprog est,PF,,pre g presv, 250 mg/mL (1 mL) injection 2021-02 00:00: 00 Yes [facility] HYDROXYprog est,PF,,pre g presv, 250 mg/mL (1 mL) injection 2021-02 00:00: 00 Yes [facility] HYDROXYprog est,PF,,pre g presv, 250 mg/mL (1 mL) injection 2021-02 00:00: 00 Yes [facility] HYDROXYprog est,PF,,pre g presv, 250 mg/mL (1 mL) injection 2021-02 00:00: 00 Yes [facility] HYDROXYprog est,PF,,pre g presv, 250 mg/mL (1 mL) injection 2021-02 00:00: 00 Yes [facility] HYDROXYprog est,PF,,pre g presv, 250 mg/mL (1 mL) injection 2021-02 00:00: 00 Yes [facility] HYDROXYprog est,PF,,pre g presv, 250 mg/mL (1 mL) injection 2021-02 00:00: 00 Yes [facility] HYDROXYprog est,PF,,pre g presv, 250 mg/mL (1 mL) injection 2021-02 00:00: 00 07-21 00:00 :00 No [facility] HYDROXYprog est,PF,,pre g presv, 250 mg/mL (1 mL) injection 2021-02 00:00: 00 07-21 00:00 :00 No [facility] hydroxyprog esterone 250 mg/mL injection 2021-02 00:00: 00 Yes [id number] 250mg 1 mL by Intramuscu lar route weekly. [facility] hydroxyprog esterone 250 mg/mL injection 2021-02 00:00: 00 Yes [id number] 250mg 1 mL by Intramuscu lar route weekly. [facility] hydroxyprog esterone 250 mg/mL injection 2021-02 00:00: 00 03-07 00:00 :00 No [id number] 250mg 1 mL by Intramuscu lar route weekly. [facility] chlorhexidi ne 0.12 % mouthwash 2021-02 00:00: 00 Yes AFTER BRUSHING TEETH, SWISH 15ML IN MOUTH FOR 30 SECONDS THEN SPIT OUT TWICE DAILY [facility] chlorhexidi ne 0.12 % mouthwash 2021-02 00:00: 00 Yes AFTER BRUSHING TEETH, SWISH 15ML IN MOUTH FOR 30 SECONDS THEN SPIT OUT TWICE DAILY [facility] chlorhexidi ne 0.12 % mouthwash 2021-02 00:00: 00 Yes AFTER BRUSHING TEETH, SWISH 15ML IN MOUTH FOR 30 SECONDS THEN SPIT OUT TWICE DAILY [facility] chlorhexidi ne 0.12 % mouthwash 2021-02 00:00: 00 Yes AFTER BRUSHING TEETH, SWISH 15ML IN MOUTH FOR 30 SECONDS THEN SPIT OUT TWICE DAILY [facility] chlorhexidi ne 0.12 % mouthwash 2021-02 00:00: 00 Yes AFTER BRUSHING TEETH, SWISH 15ML IN MOUTH FOR 30 SECONDS THEN SPIT OUT TWICE DAILY [facility] chlorhexidi ne 0.12 % mouthwash 2021-02 00:00: 00 Yes AFTER BRUSHING TEETH, SWISH 15ML IN MOUTH FOR 30 SECONDS THEN SPIT OUT TWICE DAILY [facility] chlorhexidi ne 0.12 % mouthwash 2021-02 00:00: 00 Yes AFTER BRUSHING TEETH, SWISH 15ML IN MOUTH FOR 30 SECONDS THEN SPIT OUT TWICE DAILY [facility] chlorhexidi ne 0.12 % mouthwash 2021-02 00:00: 00 Yes AFTER BRUSHING TEETH, SWISH 15ML IN MOUTH FOR 30 SECONDS THEN SPIT OUT TWICE DAILY [facility] chlorhexidi ne 0.12 % mouthwash 2021-02 00:00: 00 Yes AFTER BRUSHING TEETH, SWISH 15ML IN MOUTH FOR 30 SECONDS THEN SPIT OUT TWICE DAILY [facility] chlorhexidi ne 0.12 % mouthwash 2021-02 00:00: 00 Yes AFTER BRUSHING TEETH, SWISH 15ML IN MOUTH FOR 30 SECONDS THEN SPIT OUT TWICE DAILY [facility] chlorhexidi ne 0.12 % mouthwash 2021-02 00:00: 00 Yes AFTER BRUSHING TEETH, SWISH 15ML IN MOUTH FOR 30 SECONDS THEN SPIT OUT TWICE DAILY [facility] chlorhexidi ne 0.12 % mouthwash 2021-02 00:00: 00 Yes AFTER BRUSHING TEETH, SWISH 15ML IN MOUTH FOR 30 SECONDS THEN SPIT OUT TWICE DAILY [facility] chlorhexidi ne 0.12 % mouthwash 2021-02 00:00: 00 Yes AFTER BRUSHING TEETH, SWISH 15ML IN MOUTH FOR 30 SECONDS THEN SPIT OUT TWICE DAILY [facility] chlorhexidi ne 0.12 % mouthwash 2021-02 00:00: 00 Yes AFTER BRUSHING TEETH, SWISH 15ML IN MOUTH FOR 30 SECONDS THEN SPIT OUT TWICE DAILY [facility] chlorhexidi ne 0.12 % mouthwash 2021-02 00:00: 00 Yes AFTER BRUSHING TEETH, SWISH 15ML IN MOUTH FOR 30 SECONDS THEN SPIT OUT TWICE DAILY [facility] chlorhexidi ne 0.12 % mouthwash 2021-02 00:00: 00 Yes AFTER BRUSHING TEETH, SWISH 15ML IN MOUTH FOR 30 SECONDS THEN SPIT OUT TWICE DAILY [facility] chlorhexidi ne 0.12 % mouthwash 2021-02 00:00: 00 Yes AFTER BRUSHING TEETH, SWISH 15ML IN MOUTH FOR 30 SECONDS THEN SPIT OUT TWICE DAILY [facility] chlorhexidi ne 0.12 % mouthwash 2021-02 00:00: 00 Yes AFTER BRUSHING TEETH, SWISH 15ML IN MOUTH FOR 30 SECONDS THEN SPIT OUT TWICE DAILY [facility] chlorhexidi ne 0.12 % mouthwash 2021-02 00:00: 00 Yes AFTER BRUSHING TEETH, SWISH 15ML IN MOUTH FOR 30 SECONDS THEN SPIT OUT TWICE DAILY [facility] chlorhexidi ne 0.12 % mouthwash 2021-02 00:00: 00 Yes AFTER BRUSHING TEETH, SWISH 15ML IN MOUTH FOR 30 SECONDS THEN SPIT OUT TWICE DAILY [facility] chlorhexidi ne 0.12 % mouthwash 2021-02 00:00: 00 Yes AFTER BRUSHING TEETH, SWISH 15ML IN MOUTH FOR 30 SECONDS THEN SPIT OUT TWICE DAILY [facility] chlorhexidi ne 0.12 % mouthwash 2021-02 00:00: 00 Yes AFTER BRUSHING TEETH, SWISH 15ML IN MOUTH FOR 30 SECONDS THEN SPIT OUT TWICE DAILY [facility] chlorhexidi ne 0.12 % mouthwash 2021-02 00:00: 00 Yes AFTER BRUSHING TEETH, SWISH 15ML IN MOUTH FOR 30 SECONDS THEN SPIT OUT TWICE DAILY [facility] chlorhexidi ne 0.12 % mouthwash 2021-02 00:00: 00 Yes AFTER BRUSHING TEETH, SWISH 15ML IN MOUTH FOR 30 SECONDS THEN SPIT OUT TWICE DAILY [facility] chlorhexidi ne 0.12 % mouthwash 2021-02 00:00: 00 Yes AFTER BRUSHING TEETH, SWISH 15ML IN MOUTH FOR 30 SECONDS THEN SPIT OUT TWICE DAILY [facility] chlorhexidi ne 0.12 % mouthwash 2021-02 00:00: 00 Yes AFTER BRUSHING TEETH, SWISH 15ML IN MOUTH FOR 30 SECONDS THEN SPIT OUT TWICE DAILY [facility] chlorhexidi ne 0.12 % mouthwash 2021-02 00:00: 00 Yes AFTER BRUSHING TEETH, SWISH 15ML IN MOUTH FOR 30 SECONDS THEN SPIT OUT TWICE DAILY [facility] chlorhexidi ne 0.12 % mouthwash 2021-02 00:00: 00 Yes AFTER BRUSHING TEETH, SWISH 15ML IN MOUTH FOR 30 SECONDS THEN SPIT OUT TWICE DAILY [facility] chlorhexidi ne 0.12 % mouthwash 2021-02 00:00: 00 Yes AFTER BRUSHING TEETH, SWISH 15ML IN MOUTH FOR 30 SECONDS THEN SPIT OUT TWICE DAILY [facility] chlorhexidi ne 0.12 % mouthwash 2021-02 00:00: 00 Yes AFTER BRUSHING TEETH, SWISH 15ML IN MOUTH FOR 30 SECONDS THEN SPIT OUT TWICE DAILY [facility] chlorhexidi ne 0.12 % mouthwash 2021-02 00:00: 00 Yes AFTER BRUSHING TEETH, SWISH 15ML IN MOUTH FOR 30 SECONDS THEN SPIT OUT TWICE DAILY [facility] chlorhexidi ne 0.12 % mouthwash 2021-02 00:00: 00 Yes AFTER BRUSHING TEETH, SWISH 15ML IN MOUTH FOR 30 SECONDS THEN SPIT OUT TWICE DAILY [facility] chlorhexidi ne 0.12 % mouthwash 2021-02 00:00: 00 Yes AFTER BRUSHING TEETH, SWISH 15ML IN MOUTH FOR 30 SECONDS THEN SPIT OUT TWICE DAILY [facility] chlorhexidi ne 0.12 % mouthwash 2021-02 00:00: 00 Yes AFTER BRUSHING TEETH, SWISH 15ML IN MOUTH FOR 30 SECONDS THEN SPIT OUT TWICE DAILY [facility] chlorhexidi ne 0.12 % mouthwash 2021-02 00:00: 00 Yes AFTER BRUSHING TEETH, SWISH 15ML IN MOUTH FOR 30 SECONDS THEN SPIT OUT TWICE DAILY [facility] chlorhexidi ne 0.12 % mouthwash 2021-02 00:00: 00 Yes AFTER BRUSHING TEETH, SWISH 15ML IN MOUTH FOR 30 SECONDS THEN SPIT OUT TWICE DAILY [facility] chlorhexidi ne 0.12 % mouthwash 2021-02 00:00: 00 Yes AFTER BRUSHING TEETH, SWISH 15ML IN MOUTH FOR 30 SECONDS THEN SPIT OUT TWICE DAILY [facility] chlorhexidi ne 0.12 % mouthwash 2021-02 00:00: 00 Yes AFTER BRUSHING TEETH, SWISH 15ML IN MOUTH FOR 30 SECONDS THEN SPIT OUT TWICE DAILY [facility] chlorhexidi ne 0.12 % mouthwash 2021-02 00:00: 00 Yes AFTER BRUSHING TEETH, SWISH 15ML IN MOUTH FOR 30 SECONDS THEN SPIT OUT TWICE DAILY [facility] chlorhexidi ne 0.12 % mouthwash 2021-02 2 00:00: 00 07-21 00:00 :00 No AFTER BRUSHING TEETH, SWISH 15ML IN MOUTH FOR 30 SECONDS THEN SPIT OUT TWICE DAILY [facility] chlorhexidi ne 0.12 % mouthwash 2021-02 2 00:00: 00 07-21 00:00 :00 No AFTER BRUSHING TEETH, SWISH 15ML IN MOUTH FOR 30 SECONDS THEN SPIT OUT TWICE DAILY [facility] 25/iron fum/folic/d betancur (-1 ORAL) 2021-02 0-13 09:26: 35 Yes Take by mouth. [facility] 25/iron fum/folic/d betancur (-1 ORAL) 2021-02 0-13 09:26: 35 Yes Take by mouth. [facility] 25/iron fum/folic/d betancur (-1 ORAL) 2021-02 0-13 09:26: 35 Yes Take by mouth. [facility] 25/iron fum/folic/d betancur (-1 ORAL) 2021-02 0-13 09:26: 35 Yes Take by mouth. [facility] 25/iron fum/folic/d betancur (-1 ORAL) 2021-02 0-13 09:26: 35 Yes Take by mouth. [facility] 25/iron fum/folic/d betancur (-1 ORAL) 2021-02 0-13 09:26: 35 Yes Take by mouth. [facility] 25/iron fum/folic/d betancur (-1 ORAL) 2021-02 0-13 09:26: 35 Yes Take by mouth. [facility] 25/iron fum/folic/d betancur (-1 ORAL) 2021-02 0-13 09:26: 35 Yes Take by mouth. [facility] 25/iron fum/folic/d betancur (-1 ORAL) 2021-02 0-13 09:26: 35 Yes Take by mouth. [facility] 25/iron fum/folic/d betancur (-1 ORAL) 2021-02 0-13 09:26: 35 Yes Take by mouth. [facility] 25/iron fum/folic/d betancur (-1 ORAL) 2021-02 0-13 09:26: 35 Yes Take by mouth. [facility] 25/iron fum/folic/d betancur (-1 ORAL) 2021-02 0-13 09:26: 35 Yes Take by mouth. [facility] 25/iron fum/folic/d betancur (-1 ORAL) 2021-02 0-13 09:26: 35 Yes Take by mouth. [facility] 25/iron fum/folic/d betanucr (-1 ORAL) 2021-02 0-13 09:26: 35 Yes Take by mouth. [facility] 25/iron fum/folic/d betancur (-1 ORAL) 2021-02 0-13 09:26: 35 Yes Take by mouth. [facility] 25/iron fum/folic/d betancur (-1 ORAL) 2021-02 0-13 09:26: 35 Yes Take by mouth. [facility] 25/iron fum/folic/d betancur (-1 ORAL) 2021-02 0-13 09:26: 35 Yes Take by mouth. [facility] 25/iron fum/folic/d betancur (-1 ORAL) 2021-02 0-13 09:26: 35 Yes Take by mouth. [facility] 25/iron fum/folic/d betancur (-1 ORAL) 2021-02 0-13 09:26: 35 Yes Take by mouth. [facility] 25/iron fum/folic/d betancur (-1 ORAL) 2021-02 0-13 09:26: 35 Yes Take by mouth. [facility] 25/iron fum/folic/d betancur (-1 ORAL) 2021-02 0-13 09:26: 35 Yes Take by mouth. [facility] 25/iron fum/folic/d betancur (-1 ORAL) 2021-02 0-13 09:26: 35 Yes Take by mouth. [facility] 25/iron fum/folic/d betancur (-1 ORAL) 2021-02 0-13 09:26: 35 Yes Take by mouth. [facility] 25/iron fum/folic/d betancur (-1 ORAL) 2021-02 0-13 09:26: 35 Yes Take by mouth. [facility] 25/iron fum/folic/d betancur (-1 ORAL) 2021-02 0-13 09:26: 35 Yes Take by mouth. [facility] 25/iron fum/folic/d betancur (-1 ORAL) 2021-02 0-13 09:26: 35 Yes Take by mouth. [facility] 25/iron fum/folic/d betancur (-1 ORAL) 2021-02 0-13 09:26: 35 Yes Take by mouth. [facility] 25/iron fum/folic/d betancur (-1 ORAL) 2021-02 0-13 09:26: 35 Yes Take by mouth. [facility] 25/iron fum/folic/d betancur (-1 ORAL) 2021-02 0-13 09:26: 35 Yes Take by mouth. [facility] 25/iron fum/folic/d betancur (-1 ORAL) 2021-02 0-13 09:26: 35 Yes Take by mouth. [facility] 25/iron fum/folic/d betancur (-1 ORAL) 2021-02 0-13 09:26: 35 Yes Take by mouth. [facility] 25/iron fum/folic/d betancur (-1 ORAL) 2021-02 0-13 09:26: 35 Yes Take by mouth. [facility] 25/iron fum/folic/d betancur (-1 ORAL) 2021-02 0-13 09:26: 35 Yes Take by mouth. [facility] 25/iron fum/folic/d betancur (-1 ORAL) 2021-02 0-13 09:26: 35 [facility]olic/d betancur (-1 ORAL) 2021-02 0-13 09:26: 35 Yes Take by mouth. [facility] 25/iron fum/folic/d betancur (-1 ORAL) 2021-02 0-13 09:26: 35 Yes Take by mouth. [facility] 25/iron fum/folic/d betancur (-1 ORAL) 2021-02 0-13 09:26: 35 Yes Take by mouth. [facility] 25/iron fum/folic/d betancur (-1 ORAL) 2021-02 0-13 09:26: 35 Yes Take by mouth. [facility] 25/iron fum/folic/d betancur (-1 ORAL) 2021-02 0-13 09:26: 35 Yes Take by mouth. [facility] 25/iron fum/folic/d betancur (-1 ORAL) 2021-02 0-13 09:26: 35 Yes Take by mouth. [facility] 25/iron fum/folic/d betancur (-1 ORAL) 2021-02 0-13 09:26: 35 Yes Take by mouth. [facility] PROAIR HFA 90 mcg/actuati on inhaler 2021-0 8-30 00:00: 00 Yes [facility] PROAIR HFA 90 mcg/actuati on inhaler 2-0 8-30 00:00: 00 Yes [facility] PROAIR HFA 90 mcg/actuati on inhaler 2-0 8-30 00:00: 00 Yes [facility] PROAIR HFA 90 mcg/actuati on inhaler 2-0 8-30 00:00: 00 Yes [facility] PROAIR HFA 90 mcg/actuati on inhaler 2-0 8-30 00:00: 00 Yes [facility] PROAIR HFA 90 mcg/actuati on inhaler 2-0 8-30 00:00: 00 Yes [facility] PROAIR HFA 90 mcg/actuati on inhaler 2-0 8-30 00:00: 00 Yes [facility] PROAIR HFA 90 mcg/actuati on inhaler 2022-0 8-30 00:00: 00 Yes [facility] PROAIR HFA 90 mcg/actuati on inhaler 2022-0 8-30 00:00: 00 Yes [facility] PROAIR HFA 90 mcg/actuati on inhaler 2022-0 8-30 00:00: 00 Yes [facility] PROAIR HFA 90 mcg/actuati on inhaler 2022-0 8-30 00:00: 00 Yes [facility] PROAIR HFA 90 mcg/actuati on inhaler 2022-0 8-30 00:00: 00 Yes [facility] PROAIR HFA 90 mcg/actuati on inhaler 2022-0 830 00:00: 00 Yes [facility] PROAIR HFA 90 mcg/actuati on inhaler 2022-0 830 00:00: 00 Yes [facility] PROAIR HFA 90 mcg/actuati on inhaler 2022-0 830 00:00: 00 Yes [facility] PROAIR HFA 90 mcg/actuati on inhaler 2022-0 830 00:00: 00 Yes [facility] PROAIR HFA 90 mcg/actuati on inhaler 2022-0 8-30 00:00: 00 Yes [facility] PROAIR HFA 90 mcg/actuati on inhaler 2022-0 8-30 00:00: 00 Yes [facility] PROAIR HFA 90 mcg/actuati on inhaler 2022-0 8-30 00:00: 00 Yes [facility] PROAIR HFA 90 mcg/actuati on inhaler 2022-0 8-30 00:00: 00 Yes [facility] PROAIR HFA 90 mcg/actuati on inhaler 2022-0 8-30 00:00: 00 Yes [facility] PROAIR HFA 90 mcg/actuati on inhaler 2022-0 8-30 00:00: 00 Yes [facility] PROAIR HFA 90 mcg/actuati on inhaler 2022-0 8-30 00:00: 00 Yes [facility] PROAIR HFA 90 mcg/actuati on inhaler 2022-0 8-30 00:00: 00 Yes [facility] PROAIR HFA 90 mcg/actuati on inhaler 2022-0 8-30 00:00: 00 Yes [facility] PROAIR HFA 90 mcg/actuati on inhaler 2022-0 8-30 00:00: 00 Yes [facility] PROAIR HFA 90 mcg/actuati on inhaler 2022-0 8-30 00:00: 00 Yes [facility] PROAIR HFA 90 mcg/actuati on inhaler 2022-0 8-30 00:00: 00 Yes [facility] PROAIR HFA 90 mcg/actuati on inhaler 2022-0 8-30 00:00: 00 Yes [facility] PROAIR HFA 90 mcg/actuati on inhaler 2022-0 8-30 00:00: 00 Yes [facility] PROAIR HFA 90 mcg/actuati on inhaler 2022-0 8-30 00:00: 00 Yes [facility] PROAIR HFA 90 mcg/actuati on inhaler 2022-0 8-30 00:00: 00 Yes [facility] PROAIR HFA 90 mcg/actuati on inhaler 2022-0 8-30 00:00: 00 Yes [facility] PROAIR HFA 90 mcg/actuati on inhaler 2022-0 8-30 00:00: 00 Yes [facility] PROAIR HFA 90 mcg/actuati on inhaler 2022-0 8-30 00:00: 00 Yes [facility] PROAIR HFA 90 mcg/actuati on inhaler 2022-0 8-30 00:00: 00 Yes [facility] PROAIR HFA 90 mcg/actuati on inhaler 2022-0 8-30 00:00: 00 Yes [facility] PROAIR HFA 90 mcg/actuati on inhaler 2022-0 8-30 00:00: 00 Yes [facility] PROAIR HFA 90 mcg/actuati on inhaler 2-0 8-30 00:00: 00 Yes [facility] PROAIR HFA 90 mcg/actuati on inhaler 2-0 8-30 00:00: 00 Yes [facility] PROAIR HFA 90 mcg/actuati on inhaler 2-0 8 00:00: 00 Yes [facility] PROAIR HFA 90 mcg/actuati on inhaler 2-0 8-30 00:00: 00 Yes [facility] PROAIR HFA 90 mcg/actuati on inhaler 2021-0 8 00:00: 00 Yes [facility] PROAIR HFA 90 mcg/actuati on inhaler 2021-0 8 00:00: 00 Yes [facility] PROAIR HFA 90 mcg/actuati on inhaler 2-0 8 00:00: 00 Yes [facility] PROAIR HFA 90 mcg/actuati on inhaler 2-0 8 00:00: 00 Yes [facility] PROAIR HFA 90 mcg/actuati on inhaler 2-0 8 00:00: 00 Yes [facility] PROAIR HFA 90 mcg/actuati on inhaler 2021-0 8 00:00: 00 Yes [facility] PROAIR HFA 90 mcg/actuati on inhaler 2-0 8 00:00: 00 Yes [facility] PROAIR HFA 90 mcg/actuati on inhaler 2-0 8-30 00:00: 00 Yes [facility] PROAIR HFA 90 mcg/actuati on inhaler 2-0 830 00:00: 00 07-23 00:00 :00 No [facility] norgestimat e-ethinyl estradioL (TRI-SPRINT EC) 0.18/0.215/ 0.25 mg-35 mcg (28) tablet 2021-0 8-16 00:00: 00 Yes [id number] 1{tbl} Take 1 tablet by mouth in the morning. [facility] norgestimat e-ethinyl estradioL (TRI-SPRINT EC) 0.18/0.215/ 0.25 mg-35 mcg (28) tablet -16 00:00: 00 12-09 00:00 :00 No [id number] 1{tbl} Take 1 tablet by mouth in the morning. [facility] norgestimat e-ethinyl estradioL (ORTHO TRI-CYCLEN, 28,) 0.18/0.215/ 0.25 mg-35 mcg (28) tablet 2020-02 00:00: 00 Yes [id number] 1{tbl} Take 1 tablet by mouth daily. [facility] norgestimat e-ethinyl estradioL (ORTHO TRI-CYCLEN, 28,) 0.18/0.215/ 0.25 mg-35 mcg (28) tablet 2020-02 00:00: 00 12-09 00:00 :00 No [id number] 1{tbl} Take 1 tablet by mouth daily. [facility] norgestimat e-ethinyl estradioL (ORTHO TRI-CYCLEN, 28,) 0.18/0.215/ 0.25 mg-35 mcg (28) tablet 2020-02 00:00: 00 12-09 00:00 :00 No [id number] 1{tbl} Take 1 tablet by mouth daily. [facility] Immunizations Ordered Immunization Name Filled Immunization Name Date Status Comments Source TDAP 2022-05-26 00:00:00 Completed [facility] TDAP 2022-05-26 00:00:00 Completed [facility] TDAP 2022-05-26 00:00:00 Completed [facility] TDAP 2022-05-26 00:00:00 Completed [facility] TDAP 2022-05-26 00:00:00 Completed [facility] TDAP 2022-05-26 00:00:00 Completed [facility] TDAP 2022-05-26 00:00:00 Completed [facility] TDAP 2022-05-26 00:00:00 Completed [facility] TDAP 2022-05-26 00:00:00 Completed [facility] TDAP 2022-05-26 00:00:00 Completed [facility] TDAP 2022-05-26 00:00:00 Completed [facility] TDAP 2022-05-26 00:00:00 Completed [facility] TDAP 2022-05-26 00:00:00 Completed [facility] TDAP 2022-05-26 00:00:00 Completed [facility] TDAP 2022-05-26 00:00:00 Completed [facility] TDAP 2022-05-26 00:00:00 Completed [facility] TDAP 2022-05-26 00:00:00 Completed [facility] TDAP 2022-05-26 00:00:00 Completed [facility] TDAP 2022-05-26 00:00:00 Completed [facility] TDAP 2022-05-26 00:00:00 Completed [facility] TDAP 2022-05-26 00:00:00 Completed [facility] TDAP 2022-05-26 00:00:00 Completed [facility] TDAP 2022-05-26 00:00:00 Completed [facility] TDAP 2022-05-26 00:00:00 Completed [facility] TDAP 2022-05-26 00:00:00 Completed [facility] TDAP 2022-05-26 00:00:00 Completed [facility] TDAP 2020-06-09 00:00:00 Completed [facility] TDAP 2020-06-09 00:00:00 Completed [facility] TDAP 2020-06-09 00:00:00 Completed [facility] TDAP 2020-06-09 00:00:00 Completed [facility] TDAP 2020-06-09 00:00:00 Completed [facility] TDAP 2020-06-09 00:00:00 Completed [facility] TDAP 2020-06-09 00:00:00 Completed [facility] TDAP 2020-06-09 00:00:00 Completed [facility] TDAP 2020-06-09 00:00:00 Completed [facility] TDAP 2020-06-09 00:00:00 Completed [facility] TDAP 2020-06-09 00:00:00 Completed [facility] TDAP 2020-06-09 00:00:00 Completed [facility] TDAP 2020-06-09 00:00:00 Completed [facility] TDAP 2020-06-09 00:00:00 Completed [facility] TDAP 2020-06-09 00:00:00 Completed [facility] TDAP 2020-06-09 00:00:00 Completed [facility] TDAP 2020-06-09 00:00:00 Completed [facility] TDAP 2020-06-09 00:00:00 Completed [facility] TDAP 2020-06-09 00:00:00 Completed [facility] TDAP 2020-06-09 00:00:00 Completed [facility] TDAP 2020-06-09 00:00:00 Completed [facility] TDAP 2020-06-09 00:00:00 Completed [facility] TDAP 2020-06-09 00:00:00 Completed [facility] TDAP 2020-06-09 00:00:00 Completed [facility] TDAP 2020-06-09 00:00:00 Completed [facility] TDAP 2020-06-09 00:00:00 Completed [facility] TDAP 2020-06-09 00:00:00 Completed [facility] TDAP 2020-06-09 00:00:00 Completed [facility] TDAP 2020-06-09 00:00:00 Completed [facility] TDAP 2020-06-09 00:00:00 Completed [facility] TDAP 2020-06-09 00:00:00 Completed [facility] TDAP 2020-06-09 00:00:00 Completed [facility] TDAP 2020-06-09 00:00:00 Completed [facility] TDAP 2020-06-09 00:00:00 Completed [facility] TDAP 2020-06-09 00:00:00 Completed [facility] TDAP 2020-06-09 00:00:00 Completed [facility] TDAP 2020-06-09 00:00:00 Completed [facility] TDAP 2020-06-09 00:00:00 Completed [facility] TDAP 2020-06-09 00:00:00 Completed [facility] TDAP 2020-06-09 00:00:00 Completed [facility] TDAP 2020-06-09 00:00:00 Completed [facility] TDAP 2020-06-09 00:00:00 Completed [facility] TDAP 2020-06-09 00:00:00 Completed [facility] TDAP 2020-06-09 00:00:00 Completed [facility] TDAP 2020-06-09 00:00:00 Completed [facility] TDAP 2020-06-09 00:00:00 Completed [facility] TDAP 2020-06-09 00:00:00 Completed [facility] TDAP 2020-06-09 00:00:00 Completed [facility] TDAP 2020-06-09 00:00:00 Completed [facility] TDAP 2020-06-09 00:00:00 Completed [facility] TDAP 2020-06-09 00:00:00 Completed [facility] TDAP 2020-06-09 00:00:00 Completed [facility] TDAP 2020-06-09 00:00:00 Completed [facility] TDAP 2020-06-09 00:00:00 Completed [facility] TDAP 2020-06-09 00:00:00 Completed [facility] TDAP 2020-06-09 00:00:00 Completed [facility] TDAP 2020-06-09 00:00:00 Completed [facility] TDAP 2020-06-09 00:00:00 Completed [facility] TDAP 2020-06-09 00:00:00 Completed [facility] TDAP 2020-06-09 00:00:00 Completed [facility] TDAP 2020-06-09 00:00:00 Completed [facility] TDAP 2020-06-09 00:00:00 Completed [facility] TDAP 2020-06-09 00:00:00 Completed [facility] Influenza Virus Vaccine Quad .5 mL IM 6+ MO 2020-01-21 00:00:00 Completed [facility] Influenza Virus Vaccine Quad .5 mL IM 6+ MO 2020-01-21 00:00:00 Completed [facility] Influenza Virus Vaccine Quad .5 mL IM 6+ MO 2020-01-21 00:00:00 Completed [facility] Influenza Virus Vaccine Quad .5 mL IM 6+ MO 2020-01-21 00:00:00 Completed [facility] Influenza Virus Vaccine Quad .5 mL IM 6+ MO 2020-01-21 00:00:00 Completed [facility] Influenza Virus Vaccine Quad .5 mL IM 6+ MO 2020-01-21 00:00:00 Completed [facility] Influenza Virus Vaccine Quad .5 mL IM 6+ MO 2020-01-21 00:00:00 Completed [facility] Influenza Virus Vaccine Quad .5 mL IM 6+ MO 2020-01-21 00:00:00 Completed [facility] Influenza Virus Vaccine Quad .5 mL IM 6+ MO 2020-01-21 00:00:00 Completed [facility] Influenza Virus Vaccine Quad .5 mL IM 6+ MO 2020-01-21 00:00:00 Completed [facility] Influenza Virus Vaccine Quad .5 mL IM 6+ MO 2020-01-21 00:00:00 Completed [facility] Influenza Virus Vaccine Quad .5 mL IM 6+ MO 2020-01-21 00:00:00 Completed [facility] Influenza Virus Vaccine Quad .5 mL IM 6+ MO 2020-01-21 00:00:00 Completed [facility] Influenza Virus Vaccine Quad .5 mL IM 6+ MO 2020-01-21 00:00:00 Completed [facility] Influenza Virus Vaccine Quad .5 mL IM 6+ MO 2020-01-21 00:00:00 Completed [facility] Influenza Virus Vaccine Quad .5 mL IM 6+ MO 2020-01-21 00:00:00 Completed [facility] Influenza Virus Vaccine Quad .5 mL IM 6+ MO 2020-01-21 00:00:00 Completed [facility] Influenza Virus Vaccine Quad .5 mL IM 6+ MO 2020-01-21 00:00:00 Completed [facility] Influenza Virus Vaccine Quad .5 mL IM 6+ MO 2020-01-21 00:00:00 Completed [facility] Influenza Virus Vaccine Quad .5 mL IM 6+ MO 2020-01-21 00:00:00 Completed [facility] Influenza Virus Vaccine Quad .5 mL IM 6+ MO 2020-01-21 00:00:00 Completed [facility] Influenza Virus Vaccine Quad .5 mL IM 6+ MO 2020-01-21 00:00:00 Completed [facility] Influenza Virus Vaccine Quad .5 mL IM 6+ MO 2020-01-21 00:00:00 Completed [facility] Influenza Virus Vaccine Quad .5 mL IM 6+ MO 2020-01-21 00:00:00 Completed [facility] Influenza Virus Vaccine Quad .5 mL IM 6+ MO 2020-01-21 00:00:00 Completed [facility] Influenza Virus Vaccine Quad .5 mL IM 6+ MO 2020-01-21 00:00:00 Completed [facility] Influenza Virus Vaccine Quad .5 mL IM 6+ MO 2020-01-21 00:00:00 Completed [facility] Influenza Virus Vaccine Quad .5 mL IM 6+ MO 2020-01-21 00:00:00 Completed [facility] Influenza Virus Vaccine Quad .5 mL IM 6+ MO 2020-01-21 00:00:00 Completed [facility] Influenza Virus Vaccine Quad .5 mL IM 6+ MO 2020-01-21 00:00:00 Completed [facility] Influenza Virus Vaccine Quad .5 mL IM 6+ MO 2020-01-21 00:00:00 Completed [facility] Influenza Virus Vaccine Quad .5 mL IM 6+ MO 2020-01-21 00:00:00 Completed [facility] Influenza Virus Vaccine Quad .5 mL IM 6+ MO 2020-01-21 00:00:00 Completed [facility] Influenza Virus Vaccine Quad .5 mL IM 6+ MO 2020-01-21 00:00:00 Completed [facility] Influenza Virus Vaccine Quad .5 mL IM 6+ MO 2020-01-21 00:00:00 Completed [facility] Influenza Virus Vaccine Quad .5 mL IM 6+ MO 2020-01-21 00:00:00 Completed [facility] Influenza Virus Vaccine Quad .5 mL IM 6+ MO 2020-01-21 00:00:00 Completed [facility] Influenza Virus Vaccine Quad .5 mL IM 6+ MO 2020-01-21 00:00:00 Completed [facility] Influenza Virus Vaccine Quad .5 mL IM 6+ MO 2020-01-21 00:00:00 Completed [facility] Influenza Virus Vaccine Quad .5 mL IM 6+ MO 2020-01-21 00:00:00 Completed [facility] Influenza Virus Vaccine Quad .5 mL IM 6+ MO 2020-01-21 00:00:00 Completed [facility] Influenza Virus Vaccine Quad .5 mL IM 6+ MO 2020-01-21 00:00:00 Completed [facility] Influenza Virus Vaccine Quad .5 mL IM 6+ MO 2020-01-21 00:00:00 Completed [facility] Influenza Virus Vaccine Quad .5 mL IM 6+ MO 2020-01-21 00:00:00 Completed [facility] Influenza Virus Vaccine Quad .5 mL IM 6+ MO 2020-01-21 00:00:00 Completed [facility] Influenza Virus Vaccine Quad .5 mL IM 6+ MO 2020-01-21 00:00:00 Completed [facility] Influenza Virus Vaccine Quad .5 mL IM 6+ MO 2020-01-21 00:00:00 Completed [facility] Influenza Virus Vaccine Quad .5 mL IM 6+ MO 2020-01-21 00:00:00 Completed [facility] Influenza Virus Vaccine Quad .5 mL IM 6+ MO 2020-01-21 00:00:00 Completed [facility] Influenza Virus Vaccine Quad .5 mL IM 6+ MO 2020-01-21 00:00:00 Completed [facility] Influenza Virus Vaccine Quad .5 mL IM 6+ MO 2020-01-21 00:00:00 Completed [facility] Influenza Virus Vaccine Quad .5 mL IM 6+ MO 2020-01-21 00:00:00 Completed [facility] Influenza Virus Vaccine Quad .5 mL IM 6+ MO 2020-01-21 00:00:00 Completed [facility] Influenza Virus Vaccine Quad .5 mL IM 6+ MO 2020-01-21 00:00:00 Completed [facility] Influenza Virus Vaccine Quad .5 mL IM 6+ MO 2020-01-21 00:00:00 Completed [facility] Influenza Virus Vaccine Quad .5 mL IM 6+ MO 2020-01-21 00:00:00 Completed [facility] Influenza Virus Vaccine Quad .5 mL IM 6+ MO 2020-01-21 00:00:00 Completed [facility] Influenza Virus Vaccine Quad .5 mL IM 6+ MO 2020-01-21 00:00:00 Completed [facility] Influenza Virus Vaccine Quad .5 mL IM 6+ MO 2020-01-21 00:00:00 Completed [facility] Influenza Virus Vaccine Quad .5 mL IM 6+ MO 2020-01-21 00:00:00 Completed [facility] Influenza Virus Vaccine Quad .5 mL IM 6+ MO 2020-01-21 00:00:00 Completed [facility] Influenza Virus Vaccine Quad .5 mL IM 6+ MO 2020-01-21 00:00:00 Completed [facility] Influenza Virus Vaccine Quad .5 mL IM 6+ MO 2020-01-21 00:00:00 Completed [facility] Meningococcal Vaccine 2018-10-18 00:00:00 Completed [facility] TDAP 2018-10-18 00:00:00 Completed [facility] Meningococcal B, OMV 2018-10-18 00:00:00 Completed [facility] Meningococcal Vaccine 2018-10-18 00:00:00 Completed [facility] TDAP 2018-10-18 00:00:00 Completed [facility] Meningococcal B, OMV 2018-10-18 00:00:00 Completed [facility] Meningococcal Vaccine 2018-10-18 00:00:00 Completed [facility] TDAP 2018-10-18 00:00:00 Completed [facility] Meningococcal B, OMV 2018-10-18 00:00:00 Completed [facility] Meningococcal Vaccine 2018-10-18 00:00:00 Completed [facility] TDAP 2018-10-18 00:00:00 Completed [facility] Meningococcal B, OMV 2018-10-18 00:00:00 Completed [facility] Meningococcal Vaccine 2018-10-18 00:00:00 Completed [facility] TDAP 2018-10-18 00:00:00 Completed [facility] Meningococcal B, OMV 2018-10-18 00:00:00 Completed [facility] Meningococcal Vaccine 2018-10-18 00:00:00 Completed [facility] TDAP 2018-10-18 00:00:00 Completed [facility] Meningococcal B, OMV 2018-10-18 00:00:00 Completed [facility] Meningococcal Vaccine 2018-10-18 00:00:00 Completed [facility] TDAP 2018-10-18 00:00:00 Completed [facility] Meningococcal B, OMV 2018-10-18 00:00:00 Completed [facility] Meningococcal Vaccine 2018-10-18 00:00:00 Completed [facility] TDAP 2018-10-18 00:00:00 Completed [facility] Meningococcal B, OMV 2018-10-18 00:00:00 Completed [facility] Meningococcal Vaccine 2018-10-18 00:00:00 Completed [facility] TDAP 2018-10-18 00:00:00 Completed [facility] Meningococcal B, OMV 2018-10-18 00:00:00 Completed [facility] Meningococcal Vaccine 2018-10-18 00:00:00 Completed [facility] TDAP 2018-10-18 00:00:00 Completed [facility] Meningococcal B, OMV 2018-10-18 00:00:00 Completed [facility] Meningococcal Vaccine 2018-10-18 00:00:00 Completed [facility] TDAP 2018-10-18 00:00:00 Completed [facility] Meningococcal B, OMV 2018-10-18 00:00:00 Completed [facility] Meningococcal Vaccine 2018-10-18 00:00:00 Completed [facility] TDAP 2018-10-18 00:00:00 Completed [facility] Meningococcal B, OMV 2018-10-18 00:00:00 Completed [facility] Meningococcal Vaccine 2018-10-18 00:00:00 Completed [facility] TDAP 2018-10-18 00:00:00 Completed [facility] Meningococcal B, OMV 2018-10-18 00:00:00 Completed [facility] Meningococcal Vaccine 2018-10-18 00:00:00 Completed [facility] TDAP 2018-10-18 00:00:00 Completed [facility] Meningococcal B, OMV 2018-10-18 00:00:00 Completed [facility] Meningococcal Vaccine 2018-10-18 00:00:00 Completed [facility] TDAP 2018-10-18 00:00:00 Completed [facility] Meningococcal B, OMV 2018-10-18 00:00:00 Completed [facility] Meningococcal Vaccine 2018-10-18 00:00:00 Completed [facility] TDAP 2018-10-18 00:00:00 Completed [facility] Meningococcal B, OMV 2018-10-18 00:00:00 Completed [facility] Meningococcal Vaccine 2018-10-18 00:00:00 Completed [facility] TDAP 2018-10-18 00:00:00 Completed [facility] Meningococcal B, OMV 2018-10-18 00:00:00 Completed [facility] Meningococcal Vaccine 2018-10-18 00:00:00 Completed [facility] TDAP 2018-10-18 00:00:00 Completed [facility] Meningococcal B, OMV 2018-10-18 00:00:00 Completed [facility] Meningococcal Vaccine 2018-10-18 00:00:00 Completed [facility] TDAP 2018-10-18 00:00:00 Completed [facility] Meningococcal B, OMV 2018-10-18 00:00:00 [facility]pleted [facility] [facility] 2018-10-18 00:00:00 Completed [facility] TDAP 2018-10-18 00:00:00 Completed [facility] Meningococcal B, OMV 2018-10-18 00:00:00 Completed [facility] Meningococcal Vaccine 2018-10-18 00:00:00 Completed [facility] TDAP 2018-10-18 00:00:00 Completed [facility] Meningococcal B, OMV 2018-10-18 00:00:00 Completed [facility] Meningococcal Vaccine 2018-10-18 00:00:00 Completed [facility] TDAP 2018-10-18 00:00:00 Completed [facility] Meningococcal B, OMV 2018-10-18 00:00:00 Completed [facility] Meningococcal Vaccine 2018-10-18 00:00:00 Completed [facility] TDAP 2018-10-18 00:00:00 Completed [facility] Meningococcal B, OMV 2018-10-18 00:00:00 Completed [facility] Meningococcal Vaccine 2018-10-18 00:00:00 Completed [facility] TDAP 2018-10-18 00:00:00 Completed [facility] Meningococcal B, OMV 2018-10-18 00:00:00 Completed [facility] Meningococcal Vaccine 2018-10-18 00:00:00 Completed [facility] TDAP 2018-10-18 00:00:00 Completed [facility] Meningococcal B, OMV 2018-10-18 00:00:00 Completed [facility] Meningococcal Vaccine 2018-10-18 00:00:00 Completed [facility] TDAP 2018-10-18 00:00:00 Completed [facility] Meningococcal B, OMV 2018-10-18 00:00:00 Completed [facility] Meningococcal Vaccine 2018-10-18 00:00:00 Completed [facility] TDAP 2018-10-18 00:00:00 Completed [facility] Meningococcal B, OMV 2018-10-18 00:00:00 Completed [facility] Meningococcal Vaccine 2018-10-18 00:00:00 Completed [facility] TDAP 2018-10-18 00:00:00 Completed [facility] Meningococcal B, OMV 2018-10-18 00:00:00 Completed [facility] Meningococcal Vaccine 2018-10-18 00:00:00 Completed [facility] TDAP 2018-10-18 00:00:00 Completed [facility] Meningococcal B, OMV 2018-10-18 00:00:00 Completed [facility] Meningococcal Vaccine 2018-10-18 00:00:00 Completed [facility] TDAP 2018-10-18 00:00:00 Completed [facility] Meningococcal B, OMV 2018-10-18 00:00:00 Completed [facility] Meningococcal Vaccine 2018-10-18 00:00:00 Completed [facility] TDAP 2018-10-18 00:00:00 Completed [facility] Meningococcal B, OMV 2018-10-18 00:00:00 Completed [facility] Meningococcal Vaccine 2018-10-18 00:00:00 Completed [facility] TDAP 2018-10-18 00:00:00 Completed [facility] Meningococcal B, OMV 2018-10-18 00:00:00 Completed [facility] Meningococcal Vaccine 2018-10-18 00:00:00 Completed [facility] TDAP 2018-10-18 00:00:00 Completed [facility] Meningococcal B, OMV 2018-10-18 00:00:00 Completed [facility] Meningococcal Vaccine 2018-10-18 00:00:00 Completed [facility] TDAP 2018-10-18 00:00:00 Completed [facility] Meningococcal B, OMV 2018-10-18 00:00:00 Completed [facility] Meningococcal Vaccine 2018-10-18 00:00:00 Completed [facility] TDAP 2018-10-18 00:00:00 Completed [facility] Meningococcal B, OMV 2018-10-18 00:00:00 Completed [facility] Meningococcal Vaccine 2018-10-18 00:00:00 Completed [facility] TDAP 2018-10-18 00:00:00 Completed [facility] Meningococcal B, OMV 2018-10-18 00:00:00 Completed [facility] Meningococcal Vaccine 2018-10-18 00:00:00 Completed [facility] TDAP 2018-10-18 00:00:00 Completed [facility] Meningococcal B, OMV 2018-10-18 00:00:00 Completed [facility] Meningococcal Vaccine 2018-10-18 00:00:00 Completed [facility] TDAP 2018-10-18 00:00:00 Completed [facility] Meningococcal B, OMV 2018-10-18 00:00:00 Completed [facility] Meningococcal Polysaccharide (groups A, C, Y and W-135) conjugate vaccine (MCV4P) 2018-10-18 00:00:00 Completed [facility] Meningococcal Vaccine 2018-10-18 00:00:00 Completed [facility] TDAP 2018-10-18 00:00:00 Completed [facility] Meningococcal B, OMV 2018-10-18 00:00:00 Completed [facility] Meningococcal Polysaccharide (groups A, C, Y and W-135) conjugate vaccine (MCV4P) 2018-10-18 00:00:00 Completed [facility] Meningococcal Vaccine 2018-10-18 00:00:00 Completed [facility] TDAP 2018-10-18 00:00:00 Completed [facility] Meningococcal B, OMV 2018-10-18 00:00:00 Completed [facility] Meningococcal Polysaccharide (groups A, C, Y and W-135) conjugate vaccine (MCV4P) 2018-10-18 00:00:00 Completed [facility] Meningococcal Vaccine 2018-10-18 00:00:00 Completed [facility] TDAP 2018-10-18 00:00:00 Completed [facility] Meningococcal B, OMV 2018-10-18 00:00:00 Completed [facility] Meningococcal Polysaccharide (groups A, C, Y and W-135) conjugate vaccine (MCV4P) 2018-10-18 00:00:00 Completed [facility] Meningococcal Vaccine 2018-10-18 00:00:00 Completed [facility] TDAP 2018-10-18 00:00:00 Completed [facility] Meningococcal B, OMV 2018-10-18 00:00:00 Completed [facility] Meningococcal Polysaccharide (groups A, C, Y and W-135) conjugate vaccine (MCV4P) 2018-10-18 00:00:00 Completed [facility] Meningococcal Vaccine 2018-10-18 00:00:00 Completed [facility] TDAP 2018-10-18 00:00:00 Completed [facility] Meningococcal B, OMV 2018-10-18 00:00:00 Completed [facility] Meningococcal Polysaccharide (groups A, C, Y and W-135) conjugate vaccine (MCV4P) 2018-10-18 00:00:00 Completed [facility] Meningococcal Vaccine 2018-10-18 00:00:00 Completed [facility] TDAP 2018-10-18 00:00:00 Completed [facility] Meningococcal B, OMV 2018-10-18 00:00:00 Completed [facility] Meningococcal Polysaccharide (groups A, C, Y and W-135) conjugate vaccine (MCV4P) 2018-10-18 00:00:00 Completed [facility] Meningococcal Vaccine 2018-10-18 00:00:00 Completed [facility] TDAP 2018-10-18 00:00:00 Completed [facility] Meningococcal B, OMV 2018-10-18 00:00:00 Completed [facility] Meningococcal Polysaccharide (groups A, C, Y and W-135) conjugate vaccine (MCV4P) 2018-10-18 00:00:00 Completed [facility] Meningococcal Vaccine 2018-10-18 00:00:00 Completed [facility] TDAP 2018-10-18 00:00:00 Completed [facility] Meningococcal B, OMV 2018-10-18 00:00:00 Completed [facility] Meningococcal Polysaccharide (groups A, C, Y and W-135) conjugate vaccine (MCV4P) 2018-10-18 00:00:00 Completed [facility] Meningococcal Vaccine 2018-10-18 00:00:00 Completed [facility] TDAP 2018-10-18 00:00:00 Completed [facility] Meningococcal B, OMV 2018-10-18 00:00:00 Completed [facility] Meningococcal Polysaccharide (groups A, C, Y and W-135) conjugate vaccine (MCV4P) 2018-10-18 00:00:00 Completed [facility] Meningococcal Vaccine 2018-10-18 00:00:00 Completed [facility] TDAP 2018-10-18 00:00:00 Completed [facility] Meningococcal B, OMV 2018-10-18 00:00:00 Completed [facility] Meningococcal Polysaccharide (groups A, C, Y and W-135) conjugate vaccine (MCV4P) 2018-10-18 00:00:00 Completed [facility] Meningococcal Vaccine 2018-10-18 00:00:00 Completed [facility] TDAP 2018-10-18 00:00:00 Completed [facility] Meningococcal B, OMV 2018-10-18 00:00:00 Completed [facility] Meningococcal Polysaccharide (groups A, C, Y and W-135) conjugate vaccine (MCV4P) 2018-10-18 00:00:00 Completed [facility] Meningococcal Vaccine 2018-10-18 00:00:00 Completed [facility] TDAP 2018-10-18 00:00:00 Completed [facility] Meningococcal B, OMV 2018-10-18 00:00:00 Completed [facility] Meningococcal Polysaccharide (groups A, C, Y and W-135) conjugate vaccine (MCV4P) 2018-10-18 00:00:00 Completed [facility] Meningococcal Vaccine 2018-10-18 00:00:00 Completed [facility] TDAP 2018-10-18 00:00:00 Completed [facility] Meningococcal B, OMV 2018-10-18 00:00:00 Completed [facility] Meningococcal Polysaccharide (groups A, C, Y and W-135) conjugate vaccine (MCV4P) 2018-10-18 00:00:00 Completed [facility] Meningococcal Vaccine 2018-10-18 00:00:00 Completed [facility] TDAP 2018-10-18 00:00:00 Completed [facility] Meningococcal B, OMV 2018-10-18 00:00:00 Completed [facility] Meningococcal Polysaccharide (groups A, C, Y and W-135) conjugate vaccine (MCV4P) 2018-10-18 00:00:00 Completed [facility] Meningococcal Vaccine 2018-10-18 00:00:00 Completed [facility] TDAP 2018-10-18 00:00:00 Completed [facility] Meningococcal B, OMV 2018-10-18 00:00:00 Completed [facility] Meningococcal Polysaccharide (groups A, C, Y and W-135) conjugate vaccine (MCV4P) 2018-10-18 00:00:00 Completed [facility] Meningococcal Vaccine 2018-10-18 00:00:00 Completed [facility] TDAP 2018-10-18 00:00:00 Completed [facility] Meningococcal B, OMV 2018-10-18 00:00:00 Completed [facility] Meningococcal Polysaccharide (groups A, C, Y and W-135) conjugate vaccine (MCV4P) 2018-10-18 00:00:00 Completed [facility] Meningococcal Vaccine 2018-10-18 00:00:00 Completed [facility] TDAP 2018-10-18 00:00:00 Completed [facility] Meningococcal B, OMV 2018-10-18 00:00:00 Completed [facility] Meningococcal Polysaccharide (groups A, C, Y and W-135) conjugate vaccine (MCV4P) 2018-10-18 00:00:00 Completed [facility] Meningococcal Vaccine 2018-10-18 00:00:00 Completed [facility] TDAP 2018-10-18 00:00:00 Completed [facility] Meningococcal B, OMV 2018-10-18 00:00:00 Completed [facility] Meningococcal Polysaccharide (groups A, C, Y and W-135) conjugate vaccine (MCV4P) 2018-10-18 00:00:00 Completed [facility] Meningococcal Vaccine 2018-10-18 00:00:00 Completed [facility] TDAP 2018-10-18 00:00:00 Completed [facility] Meningococcal B, OMV 2018-10-18 00:00:00 Completed [facility] Meningococcal Polysaccharide (groups A, C, Y and W-135) conjugate vaccine (MCV4P) 2018-10-18 00:00:00 Completed [facility] Meningococcal Vaccine 2018-10-18 00:00:00 Completed [facility] TDAP 2018-10-18 00:00:00 Completed [facility] Meningococcal B, OMV 2018-10-18 00:00:00 Completed [facility] Meningococcal Polysaccharide (groups A, C, Y and W-135) conjugate vaccine (MCV4P) 2018-10-18 00:00:00 Completed [facility] Meningococcal Vaccine 2018-10-18 00:00:00 Completed [facility] TDAP 2018-10-18 00:00:00 Completed [facility] Meningococcal B, OMV 2018-10-18 00:00:00 Completed [facility] Meningococcal Polysaccharide (groups A, C, Y and W-135) conjugate vaccine (MCV4P) 2018-10-18 00:00:00 Completed [facility] Meningococcal Vaccine 2018-10-18 00:00:00 Completed [facility] TDAP 2018-10-18 00:00:00 Completed [facility] Meningococcal B, OMV 2018-10-18 00:00:00 Completed [facility] Meningococcal Polysaccharide (groups A, C, Y and W-135) conjugate vaccine (MCV4P) 2018-10-18 00:00:00 Completed [facility] Meningococcal Vaccine 2018-10-18 00:00:00 Completed [facility] TDAP 2018-10-18 00:00:00 Completed [facility] Meningococcal B, OMV 2018-10-18 00:00:00 Completed [facility] Meningococcal Polysaccharide (groups A, C, Y and W-135) conjugate vaccine (MCV4P) 2018-10-18 00:00:00 Completed [facility] Meningococcal Vaccine 2018-10-18 00:00:00 Completed [facility] TDAP 2018-10-18 00:00:00 Completed [facility] Meningococcal B, OMV 2018-10-18 00:00:00 Completed [facility] Meningococcal Polysaccharide (groups A, C, Y and W-135) conjugate vaccine (MCV4P) 2018-10-18 00:00:00 Completed [facility] Meningococcal Vaccine 2018-10-18 00:00:00 Completed [facility] TDAP 2018-10-18 00:00:00 Completed [facility] Meningococcal B, OMV 2018-10-18 00:00:00 Completed [facility] Meningococcal Polysaccharide (groups A, C, Y and W-135) conjugate vaccine (MCV4P) 2018-10-18 00:00:00 Completed [facility] DTAP 2006-10-25 00:00:00 Completed [facility] Hepatitis A Adult 2006-10-25 00:00:00 Completed [facility] Polio (IPV/OPV) 2006-10-25 00:00:00 Completed [facility] DTAP 2006-10-25 00:00:00 Completed [facility] Hepatitis A Adult 2006-10-25 00:00:00 Completed [facility] Polio (IPV/OPV) 2006-10-25 00:00:00 Completed [facility] DTAP 2006-10-25 00:00:00 Completed [facility] Hepatitis A Adult 2006-10-25 00:00:00 Completed [facility] Polio (IPV/OPV) 2006-10-25 00:00:00 Completed [facility] DTAP 2006-10-25 00:00:00 Completed [facility] Hepatitis A Adult 2006-10-25 00:00:00 Completed [facility] Polio (IPV/OPV) 2006-10-25 00:00:00 Completed [facility] DTAP 2006-10-25 00:00:00 Completed [facility] Hepatitis A Adult 2006-10-25 00:00:00 Completed [facility] Polio (IPV/OPV) 2006-10-25 00:00:00 Completed [facility] DTAP 2006-10-25 00:00:00 Completed [facility] Hepatitis A Adult 2006-10-25 00:00:00 Completed [facility] Polio (IPV/OPV) 2006-10-25 00:00:00 Completed [facility] DTAP 2006-10-25 00:00:00 Completed [facility] Hepatitis A Adult 2006-10-25 00:00:00 Completed [facility] Polio (IPV/OPV) 2006-10-25 00:00:00 Completed [facility] DTAP 2006-10-25 00:00:00 Completed [facility] Hepatitis A Adult 2006-10-25 00:00:00 Completed [facility] Polio (IPV/OPV) 2006-10-25 00:00:00 Completed [facility] DTAP 2006-10-25 00:00:00 Completed [facility] Hepatitis A Adult 2006-10-25 00:00:00 Completed [facility] Polio (IPV/OPV) 2006-10-25 00:00:00 Completed [facility] DTAP 2006-10-25 00:00:00 Completed [facility] Hepatitis A Adult 2006-10-25 00:00:00 Completed [facility] Polio (IPV/OPV) 2006-10-25 00:00:00 Completed [facility] DTAP 2006-10-25 00:00:00 Completed [facility] Hepatitis A Adult 2006-10-25 00:00:00 Completed [facility] Polio (IPV/OPV) 2006-10-25 00:00:00 Completed [facility] DTAP 2006-10-25 00:00:00 Completed [facility] Hepatitis A Adult 2006-10-25 00:00:00 Completed [facility] Polio (IPV/OPV) 2006-10-25 00:00:00 Completed [facility] DTAP 2006-10-25 00:00:00 Completed [facility] Hepatitis A Adult 2006-10-25 00:00:00 Completed [facility] Polio (IPV/OPV) 2006-10-25 00:00:00 Completed [facility] DTAP 2006-10-25 00:00:00 Completed [facility] Hepatitis A Adult 2006-10-25 00:00:00 Completed [facility] Polio (IPV/OPV) 2006-10-25 00:00:00 Completed [facility] DTAP 2006-10-25 00:00:00 Completed [facility] Hepatitis A Adult 2006-10-25 00:00:00 Completed [facility] Polio (IPV/OPV) 2006-10-25 00:00:00 Completed [facility] DTAP 2006-10-25 00:00:00 Completed [facility] Hepatitis A Adult 2006-10-25 00:00:00 Completed [facility] Polio (IPV/OPV) 2006-10-25 00:00:00 Completed [facility] DTAP 2006-10-25 00:00:00 Completed [facility] Hepatitis A Adult 2006-10-25 00:00:00 Completed [facility] Polio (IPV/OPV) 2006-10-25 00:00:00 Completed [facility] DTAP 2006-10-25 00:00:00 Completed [facility] Hepatitis A Adult 2006-10-25 00:00:00 Completed [facility] Polio (IPV/OPV) 2006-10-25 00:00:00 Completed [facility] DTAP 2006-10-25 00:00:00 Completed [facility] Hepatitis A Adult 2006-10-25 00:00:00 Completed [facility] Polio (IPV/OPV) 2006-10-25 00:00:00 Completed [facility] DTAP 2006-10-25 00:00:00 Completed [facility] Hepatitis A Adult 2006-10-25 00:00:00 Completed [facility] Polio (IPV/OPV) 2006-10-25 00:00:00 Completed [facility] DTAP 2006-10-25 00:00:00 Completed [facility] Hepatitis A Adult 2006-10-25 00:00:00 Completed [facility] Polio (IPV/OPV) 2006-10-25 00:00:00 Completed [facility] DTAP 2006-10-25 00:00:00 Completed [facility] Hepatitis A Adult 2006-10-25 00:00:00 Completed [facility] Polio (IPV/OPV) 2006-10-25 00:00:00 Completed [facility] DTAP 2006-10-25 00:00:00 Completed [facility] Hepatitis A Adult 2006-10-25 00:00:00 Completed [facility] Polio (IPV/OPV) 2006-10-25 00:00:00 Completed [facility] DTAP 2006-10-25 00:00:00 Completed [facility] Hepatitis A Adult 2006-10-25 00:00:00 Completed [facility] Polio (IPV/OPV) 2006-10-25 00:00:00 Completed [facility] DTAP 2006-10-25 00:00:00 Completed [facility] Hepatitis A Adult 2006-10-25 00:00:00 Completed [facility] Polio (IPV/OPV) 2006-10-25 00:00:00 Completed [facility] DTAP 2006-10-25 00:00:00 Completed [facility] Hepatitis A Adult 2006-10-25 00:00:00 Completed [facility] Polio (IPV/OPV) 2006-10-25 00:00:00 Completed [facility] DTAP 2006-10-25 00:00:00 Completed [facility] Hepatitis A Adult 2006-10-25 00:00:00 Completed [facility] Polio (IPV/OPV) 2006-10-25 00:00:00 Completed [facility] DTAP 2006-10-25 00:00:00 Completed [facility] Hepatitis A Adult 2006-10-25 00:00:00 Completed [facility] Polio (IPV/OPV) 2006-10-25 00:00:00 Completed [facility] DTAP 2006-10-25 00:00:00 Completed [facility] Hepatitis A Adult 2006-10-25 00:00:00 Completed [facility] Polio (IPV/OPV) 2006-10-25 00:00:00 Completed [facility] DTAP 2006-10-25 00:00:00 Completed [facility] Hepatitis A Adult 2006-10-25 00:00:00 Completed [facility] Polio (IPV/OPV) 2006-10-25 00:00:00 Completed [facility] DTAP 2006-10-25 00:00:00 Completed [facility] Hepatitis A Adult 2006-10-25 00:00:00 Completed [facility] Polio (IPV/OPV) 2006-10-25 00:00:00 Completed [facility] DTAP 2006-10-25 00:00:00 Completed [facility] Hepatitis A Adult 2006-10-25 00:00:00 Completed [facility] Polio (IPV/OPV) 2006-10-25 00:00:00 Completed [facility] DTAP 2006-10-25 00:00:00 Completed [facility] Hepatitis A Adult 2006-10-25 00:00:00 Completed [facility] Polio (IPV/OPV) 2006-10-25 00:00:00 Completed [facility] DTAP 2006-10-25 00:00:00 Completed [facility] Hepatitis A Adult 2006-10-25 00:00:00 Completed [facility] Polio (IPV/OPV) 2006-10-25 00:00:00 Completed [facility] DTAP 2006-10-25 00:00:00 Completed [facility] Hepatitis A Adult 2006-10-25 00:00:00 Completed [facility] Polio (IPV/OPV) 2006-10-25 00:00:00 Completed [facility] DTAP 2006-10-25 00:00:00 Completed [facility] Hepatitis A Adult 2006-10-25 00:00:00 Completed [facility] Polio (IPV/OPV) 2006-10-25 00:00:00 Completed [facility] DTAP 2006-10-25 00:00:00 Completed [facility] Hepatitis A Adult 2006-10-25 00:00:00 Completed [facility] Polio (IPV/OPV) 2006-10-25 00:00:00 Completed [facility] DTAP 2006-10-25 00:00:00 Completed [facility] Hepatitis A Adult 2006-10-25 00:00:00 Completed [facility] Polio (IPV/OPV) 2006-10-25 00:00:00 Completed [facility] DTaP, Unspecified Formulation 2006-10-25 00:00:00 Completed [facility] HEPA,NOS 2006-10-25 00:00:00 Completed [facility] IPV 2006-10-25 00:00:00 Completed [facility] DTAP 2006-10-25 00:00:00 Completed [facility] Hepatitis A Adult 2006-10-25 00:00:00 Completed [facility] Polio (IPV/OPV) 2006-10-25 00:00:00 Completed [facility] DTaP, Unspecified Formulation 2006-10-25 00:00:00 Completed [facility] HEPA,NOS 2006-10-25 00:00:00 Completed [facility] IPV 2006-10-25 00:00:00 Completed [facility] DTAP 2006-10-25 00:00:00 Completed [facility] Hepatitis A Adult 2006-10-25 00:00:00 [facility] [facility] Polio (IPV/OPV) 2006-10-25 00:00:00 Completed [facility] DTaP, Unspecified Formulation 2006-10-25 00:00:00 Completed [facility] HEPA,NOS 2006-10-25 00:00:00 Completed [facility] IPV 2006-10-25 00:00:00 Completed [facility] DTAP 2006-10-25 00:00:00 Completed [facility] Hepatitis A Adult 2006-10-25 00:00:00 Completed [facility] Polio (IPV/OPV) 2006-10-25 00:00:00 Completed [facility] DTaP, Unspecified Formulation 2006-10-25 00:00:00 Completed [facility] HEPA,NOS 2006-10-25 00:00:00 Completed [facility] IPV 2006-10-25 00:00:00 Completed [facility] DTAP 2006-10-25 00:00:00 Completed [facility] Hepatitis A Adult 2006-10-25 00:00:00 Completed [facility] Polio (IPV/OPV) 2006-10-25 00:00:00 Completed [facility] DTaP, Unspecified Formulation 2006-10-25 00:00:00 Completed [facility] HEPA,NOS 2006-10-25 00:00:00 Completed [facility] IPV 2006-10-25 00:00:00 Completed [facility] DTAP 2006-10-25 00:00:00 Completed [facility] Hepatitis A Adult 2006-10-25 00:00:00 Completed [facility] Polio (IPV/OPV) 2006-10-25 00:00:00 Completed [facility] DTaP, Unspecified Formulation 2006-10-25 00:00:00 Completed [facility] HEPA,NOS 2006-10-25 00:00:00 Completed [facility] IPV 2006-10-25 00:00:00 Completed [facility] DTAP 2006-10-25 00:00:00 Completed [facility] Hepatitis A Adult 2006-10-25 00:00:00 Completed [facility] Polio (IPV/OPV) 2006-10-25 00:00:00 Completed [facility] DTaP, Unspecified Formulation 2006-10-25 00:00:00 Completed [facility] HEPA,NOS 2006-10-25 00:00:00 Completed [facility] IPV 2006-10-25 00:00:00 Completed [facility] DTAP 2006-10-25 00:00:00 Completed [facility] Hepatitis A Adult 2006-10-25 00:00:00 Completed [facility] Polio (IPV/OPV) 2006-10-25 00:00:00 Completed [facility] DTaP, Unspecified Formulation 2006-10-25 00:00:00 Completed [facility] HEPA,NOS 2006-10-25 00:00:00 Completed [facility] IPV 2006-10-25 00:00:00 Completed [facility] DTAP 2006-10-25 00:00:00 Completed [facility] Hepatitis A Adult 2006-10-25 00:00:00 Completed [facility] Polio (IPV/OPV) 2006-10-25 00:00:00 Completed [facility] DTaP, Unspecified Formulation 2006-10-25 00:00:00 Completed [facility] HEPA,NOS 2006-10-25 00:00:00 Completed [facility] IPV 2006-10-25 00:00:00 Completed [facility] DTAP 2006-10-25 00:00:00 Completed [facility] Hepatitis A Adult 2006-10-25 00:00:00 Completed [facility] Polio (IPV/OPV) 2006-10-25 00:00:00 Completed [facility] DTaP, Unspecified Formulation 2006-10-25 00:00:00 Completed [facility] HEPA,NOS 2006-10-25 00:00:00 Completed [facility] IPV 2006-10-25 00:00:00 Completed [facility] DTAP 2006-10-25 00:00:00 Completed [facility] Hepatitis A Adult 2006-10-25 00:00:00 Completed [facility] Polio (IPV/OPV) 2006-10-25 00:00:00 Completed [facility] DTaP, Unspecified Formulation 2006-10-25 00:00:00 Completed [facility] HEPA,NOS 2006-10-25 00:00:00 Completed [facility] IPV 2006-10-25 00:00:00 Completed [facility] DTAP 2006-10-25 00:00:00 Completed [facility] Hepatitis A Adult 2006-10-25 00:00:00 Completed [facility] Polio (IPV/OPV) 2006-10-25 00:00:00 Completed [facility] DTaP, Unspecified Formulation 2006-10-25 00:00:00 Completed [facility] HEPA,NOS 2006-10-25 00:00:00 Completed [facility] IPV 2006-10-25 00:00:00 Completed [facility] DTAP 2006-10-25 00:00:00 Completed [facility] Hepatitis A Adult 2006-10-25 00:00:00 Completed [facility] Polio (IPV/OPV) 2006-10-25 00:00:00 Completed [facility] DTaP, Unspecified Formulation 2006-10-25 00:00:00 Completed [facility] HEPA,NOS 2006-10-25 00:00:00 Completed [facility] IPV 2006-10-25 00:00:00 Completed [facility] DTAP 2006-10-25 00:00:00 Completed [facility] Hepatitis A Adult 2006-10-25 00:00:00 Completed [facility] Polio (IPV/OPV) 2006-10-25 00:00:00 Completed [facility] DTaP, Unspecified Formulation 2006-10-25 00:00:00 Completed [facility] HEPA,NOS 2006-10-25 00:00:00 Completed [facility] IPV 2006-10-25 00:00:00 Completed [facility] DTAP 2006-10-25 00:00:00 Completed [facility] Hepatitis A Adult 2006-10-25 00:00:00 Completed [facility] Polio (IPV/OPV) 2006-10-25 00:00:00 Completed [facility] DTaP, Unspecified Formulation 2006-10-25 00:00:00 Completed [facility] HEPA,NOS 2006-10-25 00:00:00 Completed [facility] IPV 2006-10-25 00:00:00 Completed [facility] DTAP 2006-10-25 00:00:00 Completed [facility] Hepatitis A Adult 2006-10-25 00:00:00 Completed [facility] Polio (IPV/OPV) 2006-10-25 00:00:00 Completed [facility] DTaP, Unspecified Formulation 2006-10-25 00:00:00 Completed [facility] HEPA,NOS 2006-10-25 00:00:00 Completed [facility] IPV 2006-10-25 00:00:00 Completed [facility] DTAP 2006-10-25 00:00:00 Completed [facility] Hepatitis A Adult 2006-10-25 00:00:00 Completed [facility] Polio (IPV/OPV) 2006-10-25 00:00:00 Completed [facility] DTaP, Unspecified Formulation 2006-10-25 00:00:00 Completed [facility] HEPA,NOS 2006-10-25 00:00:00 Completed [facility] IPV 2006-10-25 00:00:00 Completed [facility] DTAP 2006-10-25 00:00:00 Completed [facility] Hepatitis A Adult 2006-10-25 00:00:00 Completed [facility] Polio (IPV/OPV) 2006-10-25 00:00:00 Completed [facility] DTaP, Unspecified Formulation 2006-10-25 00:00:00 Completed [facility] HEPA,NOS 2006-10-25 00:00:00 Completed [facility] IPV 2006-10-25 00:00:00 Completed [facility] DTAP 2006-10-25 00:00:00 Completed [facility] Hepatitis A Adult 2006-10-25 00:00:00 Completed [facility] Polio (IPV/OPV) 2006-10-25 00:00:00 Completed [facility] DTaP, Unspecified Formulation 2006-10-25 00:00:00 Completed [facility] HEPA,NOS 2006-10-25 00:00:00 Completed [facility] IPV 2006-10-25 00:00:00 Completed [facility] DTAP 2006-10-25 00:00:00 Completed [facility] Hepatitis A Adult 2006-10-25 00:00:00 Completed [facility] Polio (IPV/OPV) 2006-10-25 00:00:00 Completed [facility] DTaP, Unspecified Formulation 2006-10-25 00:00:00 Completed [facility] HEPA,NOS 2006-10-25 00:00:00 Completed [facility] IPV 2006-10-25 00:00:00 Completed [facility] DTAP 2006-10-25 00:00:00 Completed [facility] Hepatitis A Adult 2006-10-25 00:00:00 Completed [facility] Polio (IPV/OPV) 2006-10-25 00:00:00 Completed [facility] DTaP, Unspecified Formulation 2006-10-25 00:00:00 Completed [facility] HEPA,NOS 2006-10-25 00:00:00 Completed [facility] IPV 2006-10-25 00:00:00 Completed [facility] DTAP 2006-10-25 00:00:00 Completed [facility] Hepatitis A Adult 2006-10-25 00:00:00 Completed [facility] Polio (IPV/OPV) 2006-10-25 00:00:00 Completed [facility] DTaP, Unspecified Formulation 2006-10-25 00:00:00 Completed [facility] HEPA,NOS 2006-10-25 00:00:00 Completed [facility] IPV 2006-10-25 00:00:00 Completed [facility] DTAP 2006-10-25 00:00:00 Completed [facility] Hepatitis A Adult 2006-10-25 00:00:00 Completed [facility] Polio (IPV/OPV) 2006-10-25 00:00:00 Completed [facility] DTaP, Unspecified Formulation 2006-10-25 00:00:00 Completed [facility] HEPA,NOS 2006-10-25 00:00:00 Completed [facility] IPV 2006-10-25 00:00:00 Completed [facility] DTAP 2006-10-25 00:00:00 Completed [facility] Hepatitis A Adult 2006-10-25 00:00:00 Completed [facility] Polio (IPV/OPV) 2006-10-25 00:00:00 Completed [facility] DTaP, Unspecified Formulation 2006-10-25 00:00:00 Completed [facility] HEPA,NOS 2006-10-25 00:00:00 Completed [facility] IPV 2006-10-25 00:00:00 Completed [facility] DTAP 2006-10-25 00:00:00 Completed [facility] Hepatitis A Adult 2006-10-25 00:00:00 Completed [facility] Polio (IPV/OPV) 2006-10-25 00:00:00 Completed [facility] DTaP, Unspecified Formulation 2006-10-25 00:00:00 Completed [facility] HEPA,NOS 2006-10-25 00:00:00 Completed [facility] IPV 2006-10-25 00:00:00 Completed [facility] DTAP 2006-10-25 00:00:00 Completed [facility] Hepatitis A Adult 2006-10-25 00:00:00 Completed [facility] Polio (IPV/OPV) 2006-10-25 00:00:00 Completed [facility] DTaP, Unspecified Formulation 2006-10-25 00:00:00 Completed [facility] HEPA,NOS 2006-10-25 00:00:00 Completed [facility] IPV 2006-10-25 00:00:00 Completed [facility] DTAP 2005-09-20 00:00:00 Completed [facility] HIB 3 Dose Schedule 2005-09-20 00:00:00 Completed [facility] Hepatitis A Adult 2005-09-20 00:00:00 Completed [facility] Hep B, Adol or Pedi Dosage 2005-09-20 00:00:00 Completed [facility] Pneumococcal 13 Conjugate, PCV13 (Prevnar 13) 2005-09-20 00:00:00 Completed [facility] Polio (IPV/OPV) 2005-09-20 00:00:00 Completed [facility] DTAP 2005-09-20 00:00:00 Completed [facility] HIB 3 Dose Schedule 2005-09-20 00:00:00 Completed [facility] Hepatitis A Adult 2005-09-20 00:00:00 Completed [facility] Hep B, Adol or Pedi Dosage 2005-09-20 00:00:00 Completed [facility] Pneumococcal 13 Conjugate, PCV13 (Prevnar 13) 2005-09-20 00:00:00 Completed [facility] Polio (IPV/OPV) 2005-09-20 00:00:00 Completed [facility] DTAP 2005-09-20 00:00:00 Completed [facility] HIB 3 Dose Schedule 2005-09-20 00:00:00 Completed [facility] Hepatitis A Adult 2005-09-20 00:00:00 Completed [facility] Hep B, Adol or Pedi Dosage 2005-09-20 00:00:00 Completed [facility] Pneumococcal 13 Conjugate, PCV13 (Prevnar 13) 2005-09-20 00:00:00 Completed [facility] Polio (IPV/OPV) 2005-09-20 00:00:00 Completed [facility] DTAP 2005-09-20 00:00:00 Completed [facility] HIB 3 Dose Schedule 2005-09-20 00:00:00 Completed [facility] Hepatitis A Adult 2005-09-20 00:00:00 Completed [facility] Hep B, Adol or Pedi Dosage 2005-09-20 00:00:00 Completed [facility] Pneumococcal 13 Conjugate, PCV13 (Prevnar 13) 2005-09-20 00:00:00 Completed [facility] Polio (IPV/OPV) 2005-09-20 00:00:00 Completed [facility] DTAP 2005-09-20 00:00:00 Completed [facility] HIB 3 Dose Schedule 2005-09-20 00:00:00 Completed [facility] Hepatitis A Adult 2005-09-20 00:00:00 Completed [facility] Hep B, Adol or Pedi Dosage 2005-09-20 00:00:00 Completed [facility] Pneumococcal 13 Conjugate, PCV13 (Prevnar 13) 2005-09-20 00:00:00 Completed [facility] Polio (IPV/OPV) 2005-09-20 00:00:00 Completed [facility] DTAP 2005-09-20 00:00:00 Completed [facility] HIB 3 Dose Schedule 2005-09-20 00:00:00 Completed [facility] Hepatitis A Adult 2005-09-20 00:00:00 Completed [facility] Hep B, Adol or Pedi Dosage 2005-09-20 00:00:00 Completed [facility] Pneumococcal 13 Conjugate, PCV13 (Prevnar 13) 2005-09-20 00:00:00 Completed [facility] Polio (IPV/OPV) 2005-09-20 00:00:00 Completed [facility] DTAP 2005-09-20 00:00:00 Completed [facility] HIB 3 Dose Schedule 2005-09-20 00:00:00 Completed [facility] Hepatitis A Adult 2005-09-20 00:00:00 Completed [facility] Hep B, Adol or Pedi Dosage 2005-09-20 00:00:00 Completed [facility] Pneumococcal 13 Conjugate, PCV13 (Prevnar 13) 2005-09-20 00:00:00 Completed [facility] Polio (IPV/OPV) 2005-09-20 00:00:00 Completed [facility] DTAP 2005-09-20 00:00:00 Completed [facility] HIB 3 Dose Schedule 2005-09-20 00:00:00 Completed [facility] Hepatitis A Adult 2005-09-20 00:00:00 Completed [facility] Hep B, Adol or Pedi Dosage 2005-09-20 00:00:00 Completed [facility] Pneumococcal 13 Conjugate, PCV13 (Prevnar 13) 2005-09-20 00:00:00 Completed [facility] Polio (IPV/OPV) 2005-09-20 00:00:00 Completed [facility] DTAP 2005-09-20 00:00:00 Completed [facility] HIB 3 Dose Schedule 2005-09-20 00:00:00 Completed [facility] Hepatitis A Adult 2005-09-20 00:00:00 Completed [facility] Hep B, Adol or Pedi Dosage 2005-09-20 00:00:00 Completed [facility] Pneumococcal 13 Conjugate, PCV13 (Prevnar 13) 2005-09-20 00:00:00 Completed [facility] Polio (IPV/OPV) 2005-09-20 00:00:00 Completed [facility] DTAP 2005-09-20 00:00:00 Completed [facility] HIB 3 Dose Schedule 2005-09-20 00:00:00 Completed [facility] Hepatitis A Adult 2005-09-20 00:00:00 Completed [facility] Hep B, Adol or Pedi Dosage 2005-09-20 00:00:00 Completed [facility] Pneumococcal 13 Conjugate, PCV13 (Prevnar 13) 2005-09-20 00:00:00 Completed [facility] Polio (IPV/OPV) 2005-09-20 00:00:00 Completed [facility] DTAP 2005-09-20 00:00:00 Completed [facility] HIB 3 Dose Schedule 2005-09-20 00:00:00 Completed [facility] Hepatitis A Adult 2005-09-20 00:00:00 Completed [facility] Hep B, Adol or Pedi Dosage 2005-09-20 00:00:00 Completed [facility] Pneumococcal 13 Conjugate, PCV13 (Prevnar 13) 2005-09-20 00:00:00 Completed [facility] Polio (IPV/OPV) 2005-09-20 00:00:00 Completed [facility] DTAP 2005-09-20 00:00:00 Completed [facility] HIB 3 Dose Schedule 2005-09-20 00:00:00 Completed [facility] Hepatitis A Adult 2005-09-20 00:00:00 Completed [facility] Hep B, Adol or Pedi Dosage 2005-09-20 00:00:00 Completed [facility] Pneumococcal 13 Conjugate, PCV13 (Prevnar 13) 2005-09-20 00:00:00 Completed [facility] Polio (IPV/OPV) 2005-09-20 00:00:00 Completed [facility] DTAP 2005-09-20 00:00:00 Completed [facility] HIB 3 Dose Schedule 2005-09-20 00:00:00 Completed [facility] Hepatitis A Adult 2005-09-20 00:00:00 Completed [facility] Hep B, Adol or Pedi Dosage 2005-09-20 00:00:00 Completed [facility] Pneumococcal 13 Conjugate, PCV13 (Prevnar 13) 2005-09-20 00:00:00 Completed [facility] Polio (IPV/OPV) 2005-09-20 00:00:00 Completed [facility] DTAP 2005-09-20 00:00:00 Completed [facility] HIB 3 Dose Schedule 2005-09-20 00:00:00 Completed [facility] Hepatitis A Adult 2005-09-20 00:00:00 Completed [facility] Hep B, Adol or Pedi Dosage 2005-09-20 00:00:00 Completed [facility] Pneumococcal 13 Conjugate, PCV13 (Prevnar 13) 2005-09-20 00:00:00 Completed [facility] Polio (IPV/OPV) 2005-09-20 00:00:00 Completed [facility] DTAP 2005-09-20 00:00:00 Completed [facility] HIB 3 Dose Schedule 2005-09-20 00:00:00 Completed [facility] Hepatitis A Adult 2005-09-20 00:00:00 Completed [facility] Hep B, Adol or Pedi Dosage 2005-09-20 00:00:00 Completed [facility] Pneumococcal 13 Conjugate, PCV13 (Prevnar 13) 2005-09-20 00:00:00 Completed [facility] Polio (IPV/OPV) 2005-09-20 00:00:00 Completed [facility] DTAP 2005-09-20 00:00:00 Completed [facility] HIB 3 Dose Schedule 2005-09-20 00:00:00 Completed [facility] Hepatitis A Adult 2005-09-20 00:00:00 Completed [facility] Hep B, Adol or Pedi Dosage 2005-09-20 00:00:00 Completed [facility] Pneumococcal 13 Conjugate, PCV13 (Prevnar 13) 2005-09-20 00:00:00 Completed [facility] Polio (IPV/OPV) 2005-09-20 00:00:00 Completed [facility] DTAP 2005-09-20 00:00:00 Completed [facility] HIB 3 Dose Schedule 2005-09-20 00:00:00 Completed [facility] Hepatitis A Adult 2005-09-20 00:00:00 Completed [facility] Hep B, Adol or Pedi Dosage 2005-09-20 00:00:00 Completed [facility] Pneumococcal 13 Conjugate, PCV13 (Prevnar 13) 2005-09-20 00:00:00 Completed [facility] Polio (IPV/OPV) 2005-09-20 00:00:00 Completed [facility] DTAP 2005-09-20 00:00:00 Completed [facility] HIB 3 Dose Schedule 2005-09-20 00:00:00 Completed [facility] Hepatitis A Adult 2005-09-20 00:00:00 Completed [facility] Hep B, Adol or Pedi Dosage 2005-09-20 00:00:00 Completed [facility] Pneumococcal 13 Conjugate, PCV13 (Prevnar 13) 2005-09-20 00:00:00 Completed [facility] Polio (IPV/OPV) 2005-09-20 00:00:00 Completed [facility] DTAP 2005-09-20 00:00:00 Completed [facility] HIB 3 Dose Schedule 2005-09-20 00:00:00 Completed [facility] Hepatitis A Adult 2005-09-20 00:00:00 Completed [facility] Hep B, Adol or Pedi Dosage 2005-09-20 00:00:00 Completed [facility] Pneumococcal 13 Conjugate, PCV13 (Prevnar 13) 2005-09-20 00:00:00 Completed [facility] Polio (IPV/OPV) 2005-09-20 00:00:00 Completed [facility] DTAP 2005-09-20 00:00:00 Completed [facility] HIB 3 Dose Schedule 2005-09-20 00:00:00 Completed [facility] Hepatitis A Adult 2005-09-20 00:00:00 Completed [facility] Hep B, Adol or Pedi Dosage 2005-09-20 00:00:00 Completed [facility] Pneumococcal 13 Conjugate, PCV13 (Prevnar 13) 2005-09-20 00:00:00 Completed [facility] Polio (IPV/OPV) 2005-09-20 00:00:00 Completed [facility] DTAP 2005-09-20 00:00:00 Completed [facility] HIB 3 Dose Schedule 2005-09-20 00:00:00 Completed [facility] Hepatitis A Adult 2005-09-20 00:00:00 Completed [facility] Hep B, Adol or Pedi Dosage 2005-09-20 00:00:00 Completed [facility] Pneumococcal 13 Conjugate, PCV13 (Prevnar 13) 2005-09-20 00:00:00 Completed [facility] Polio (IPV/OPV) 2005-09-20 00:00:00 Completed [facility] DTAP 2005-09-20 00:00:00 Completed [facility] HIB 3 Dose Schedule 2005-09-20 00:00:00 Completed [facility] Hepatitis A Adult 2005-09-20 00:00:00 Completed [facility] Hep B, Adol or Pedi Dosage 2005-09-20 00:00:00 Completed [facility] Pneumococcal 13 Conjugate, PCV13 (Prevnar 13) 2005-09-20 00:00:00 Completed [facility] Polio (IPV/OPV) 2005-09-20 00:00:00 Completed [facility] DTAP 2005-09-20 00:00:00 Completed [facility] HIB 3 Dose Schedule 2005-09-20 00:00:00 Completed [facility] Hepatitis A Adult 2005-09-20 00:00:00 Completed [facility] Hep B, Adol or Pedi Dosage 2005-09-20 00:00:00 Completed [facility] Pneumococcal 13 Conjugate, PCV13 (Prevnar 13) 2005-09-20 00:00:00 Completed [facility] Polio (IPV/OPV) 2005-09-20 00:00:00 Completed [facility] DTAP 2005-09-20 00:00:00 Completed [facility] HIB 3 Dose Schedule 2005-09-20 00:00:00 Completed [facility] Hepatitis A Adult 2005-09-20 00:00:00 Completed [facility] Hep B, Adol or Pedi Dosage 2005-09-20 00:00:00 Completed [facility] Pneumococcal 13 Conjugate, PCV13 (Prevnar 13) 2005-09-20 00:00:00 Completed [facility] Polio (IPV/OPV) 2005-09-20 00:00:00 Completed [facility] DTAP 2005-09-20 00:00:00 Completed [facility] HIB 3 Dose Schedule 2005-09-20 00:00:00 Completed [facility] Hepatitis A Adult 2005-09-20 00:00:00 Completed [facility] Hep B, Adol or Pedi Dosage 2005-09-20 00:00:00 Completed [facility] Pneumococcal 13 Conjugate, PCV13 (Prevnar 13) 2005-09-20 00:00:00 Completed [facility] Polio (IPV/OPV) 2005-09-20 00:00:00 Completed [facility] DTAP 2005-09-20 00:[facility] [facility] HIB 3 Dose Schedule 2005-09-20 00:00:00 Completed [facility] Hepatitis A Adult 2005-09-20 00:00:00 Completed [facility] Hep B, Adol or Pedi Dosage 2005-09-20 00:00:00 Completed [facility] Pneumococcal 13 Conjugate, PCV13 (Prevnar 13) 2005-09-20 00:00:00 Completed [facility] Polio (IPV/OPV) 2005-09-20 00:00:00 Completed [facility] DTAP 2005-09-20 00:00:00 Completed [facility] HIB 3 Dose Schedule 2005-09-20 00:00:00 Completed [facility] Hepatitis A Adult 2005-09-20 00:00:00 Completed [facility] Hep B, Adol or Pedi Dosage 2005-09-20 00:00:00 Completed [facility] Pneumococcal 13 Conjugate, PCV13 (Prevnar 13) 2005-09-20 00:00:00 Completed [facility] Polio (IPV/OPV) 2005-09-20 00:00:00 Completed [facility] DTAP 2005-09-20 00:00:00 Completed [facility] HIB 3 Dose Schedule 2005-09-20 00:00:00 Completed [facility] Hepatitis A Adult 2005-09-20 00:00:00 Completed [facility] Hep B, Adol or Pedi Dosage 2005-09-20 00:00:00 Completed [facility] Pneumococcal 13 Conjugate, PCV13 (Prevnar 13) 2005-09-20 00:00:00 Completed [facility] Polio (IPV/OPV) 2005-09-20 00:00:00 Completed [facility] DTAP 2005-09-20 00:00:00 Completed [facility] HIB 3 Dose Schedule 2005-09-20 00:00:00 Completed [facility] Hepatitis A Adult 2005-09-20 00:00:00 Completed [facility] Hep B, Adol or Pedi Dosage 2005-09-20 00:00:00 Completed [facility] Pneumococcal 13 Conjugate, PCV13 (Prevnar 13) 2005-09-20 00:00:00 Completed [facility] Polio (IPV/OPV) 2005-09-20 00:00:00 Completed [facility] DTAP 2005-09-20 00:00:00 Completed [facility] HIB 3 Dose Schedule 2005-09-20 00:00:00 Completed [facility] Hepatitis A Adult 2005-09-20 00:00:00 Completed [facility] Hep B, Adol or Pedi Dosage 2005-09-20 00:00:00 Completed [facility] Pneumococcal 13 Conjugate, PCV13 (Prevnar 13) 2005-09-20 00:00:00 Completed [facility] Polio (IPV/OPV) 2005-09-20 00:00:00 Completed [facility] DTAP 2005-09-20 00:00:00 Completed [facility] HIB 3 Dose Schedule 2005-09-20 00:00:00 Completed [facility] Hepatitis A Adult 2005-09-20 00:00:00 Completed [facility] Hep B, Adol or Pedi Dosage 2005-09-20 00:00:00 Completed [facility] Pneumococcal 13 Conjugate, PCV13 (Prevnar 13) 2005-09-20 00:00:00 Completed [facility] Polio (IPV/OPV) 2005-09-20 00:00:00 Completed [facility] DTAP 2005-09-20 00:00:00 Completed [facility] HIB 3 Dose Schedule 2005-09-20 00:00:00 Completed [facility] Hepatitis A Adult 2005-09-20 00:00:00 Completed [facility] Hep B, Adol or Pedi Dosage 2005-09-20 00:00:00 Completed [facility] Pneumococcal 13 Conjugate, PCV13 (Prevnar 13) 2005-09-20 00:00:00 Completed [facility] Polio (IPV/OPV) 2005-09-20 00:00:00 Completed [facility] DTAP 2005-09-20 00:00:00 Completed [facility] HIB 3 Dose Schedule 2005-09-20 00:00:00 Completed [facility] Hepatitis A Adult 2005-09-20 00:00:00 Completed [facility] Hep B, Adol or Pedi Dosage 2005-09-20 00:00:00 Completed [facility] Pneumococcal 13 Conjugate, PCV13 (Prevnar 13) 2005-09-20 00:00:00 Completed [facility] Polio (IPV/OPV) 2005-09-20 00:00:00 Completed [facility] DTAP 2005-09-20 00:00:00 Completed [facility] HIB 3 Dose Schedule 2005-09-20 00:00:00 Completed [facility] Hepatitis A Adult 2005-09-20 00:00:00 Completed [facility] Hep B, Adol or Pedi Dosage 2005-09-20 00:00:00 Completed [facility] Pneumococcal 13 Conjugate, PCV13 (Prevnar 13) 2005-09-20 00:00:00 Completed [facility] Polio (IPV/OPV) 2005-09-20 00:00:00 Completed [facility] DTAP 2005-09-20 00:00:00 Completed [facility] HIB 3 Dose Schedule 2005-09-20 00:00:00 Completed [facility] Hepatitis A Adult 2005-09-20 00:00:00 Completed [facility] Hep B, Adol or Pedi Dosage 2005-09-20 00:00:00 Completed [facility] Pneumococcal 13 Conjugate, PCV13 (Prevnar 13) 2005-09-20 00:00:00 Completed [facility] Polio (IPV/OPV) 2005-09-20 00:00:00 Completed [facility] DTAP 2005-09-20 00:00:00 Completed [facility] HIB 3 Dose Schedule 2005-09-20 00:00:00 Completed [facility] Hepatitis A Adult 2005-09-20 00:00:00 Completed [facility] Hep B, Adol or Pedi Dosage 2005-09-20 00:00:00 Completed [facility] Pneumococcal 13 Conjugate, PCV13 (Prevnar 13) 2005-09-20 00:00:00 Completed [facility] Polio (IPV/OPV) 2005-09-20 00:00:00 Completed [facility] DTAP 2005-09-20 00:00:00 Completed [facility] HIB 3 Dose Schedule 2005-09-20 00:00:00 Completed [facility] Hepatitis A Adult 2005-09-20 00:00:00 Completed [facility] Hep B, Adol or Pedi Dosage 2005-09-20 00:00:00 Completed [facility] Pneumococcal 13 Conjugate, PCV13 (Prevnar 13) 2005-09-20 00:00:00 Completed [facility] Polio (IPV/OPV) 2005-09-20 00:00:00 Completed [facility] DTAP 2005-09-20 00:00:00 Completed [facility] HIB 3 Dose Schedule 2005-09-20 00:00:00 Completed [facility] Hepatitis A Adult 2005-09-20 00:00:00 Completed [facility] Hep B, Adol or Pedi Dosage 2005-09-20 00:00:00 Completed [facility] Pneumococcal 13 Conjugate, PCV13 (Prevnar 13) 2005-09-20 00:00:00 Completed [facility] Polio (IPV/OPV) 2005-09-20 00:00:00 Completed [facility] DTaP, Unspecified Formulation 2005-09-20 00:00:00 Completed [facility] HEPATITIS A 2005-09-20 00:00:00 Completed [facility] HIB 4 Dose Schedule 2005-09-20 00:00:00 Completed [facility] Pneumococcal 7 Conjugate, PCV7 (Prevnar7) 2005-09-20 00:00:00 Completed [facility] IPV 2005-09-20 00:00:00 Completed [facility] DTAP 2005-09-20 00:00:00 Completed [facility] HIB 3 Dose Schedule 2005-09-20 00:00:00 Completed [facility] Hepatitis A Adult 2005-09-20 00:00:00 Completed [facility] Hep B, Adol or Pedi Dosage 2005-09-20 00:00:00 Completed [facility] Pneumococcal 13 Conjugate, PCV13 (Prevnar 13) 2005-09-20 00:00:00 Completed [facility] Polio (IPV/OPV) 2005-09-20 00:00:00 Completed [facility] DTaP, Unspecified Formulation 2005-09-20 00:00:00 Completed [facility] HEPATITIS A 2005-09-20 00:00:00 Completed [facility] HIB 4 Dose Schedule 2005-09-20 00:00:00 Completed [facility] Pneumococcal 7 Conjugate, PCV7 (Prevnar7) 2005-09-20 00:00:00 Completed [facility] IPV 2005-09-20 00:00:00 Completed [facility] DTAP 2005-09-20 00:00:00 Completed [facility] HIB 3 Dose Schedule 2005-09-20 00:00:00 Completed [facility] Hepatitis A Adult 2005-09-20 00:00:00 Completed [facility] Hep B, Adol or Pedi Dosage 2005-09-20 00:00:00 Completed [facility] Pneumococcal 13 Conjugate, PCV13 (Prevnar 13) 2005-09-20 00:00:00 Completed [facility] Polio (IPV/OPV) 2005-09-20 00:00:00 Completed [facility] DTaP, Unspecified Formulation 2005-09-20 00:00:00 Completed [facility] HEPATITIS A 2005-09-20 00:00:00 Completed [facility] HIB 4 Dose Schedule 2005-09-20 00:00:00 Completed [facility] Pneumococcal 7 Conjugate, PCV7 (Prevnar7) 2005-09-20 00:00:00 Completed [facility] IPV 2005-09-20 00:00:00 Completed [facility] DTAP 2005-09-20 00:00:00 Completed [facility] HIB 3 Dose Schedule 2005-09-20 00:00:00 Completed [facility] Hepatitis A Adult 2005-09-20 00:00:00 Completed [facility] Hep B, Adol or Pedi Dosage 2005-09-20 00:00:00 Completed [facility] Pneumococcal 13 Conjugate, PCV13 (Prevnar 13) 2005-09-20 00:00:00 Completed [facility] Polio (IPV/OPV) 2005-09-20 00:00:00 Completed [facility] DTaP, Unspecified Formulation 2005-09-20 00:00:00 Completed [facility] HEPATITIS A 2005-09-20 00:00:00 Completed [facility] HIB 4 Dose Schedule 2005-09-20 00:00:00 Completed [facility] Pneumococcal 7 Conjugate, PCV7 (Prevnar7) 2005-09-20 00:00:00 Completed [facility] IPV 2005-09-20 00:00:00 Completed [facility] DTAP 2005-09-20 00:00:00 Completed [facility] HIB 3 Dose Schedule 2005-09-20 00:00:00 Completed [facility] Hepatitis A Adult 2005-09-20 00:00:00 Completed [facility] Hep B, Adol or Pedi Dosage 2005-09-20 00:00:00 Completed [facility] Pneumococcal 13 Conjugate, PCV13 (Prevnar 13) 2005-09-20 00:00:00 Completed [facility] Polio (IPV/OPV) 2005-09-20 00:00:00 Completed [facility] DTaP, Unspecified Formulation 2005-09-20 00:00:00 Completed [facility] HEPATITIS A 2005-09-20 00:00:00 Completed [facility] HIB 4 Dose Schedule 2005-09-20 00:00:00 Completed [facility] Pneumococcal 7 Conjugate, PCV7 (Prevnar7) 2005-09-20 00:00:00 Completed [facility] IPV 2005-09-20 00:00:00 Completed [facility] DTAP 2005-09-20 00:00:00 Completed [facility] HIB 3 Dose Schedule 2005-09-20 00:00:00 Completed [facility] Hepatitis A Adult 2005-09-20 00:00:00 Completed [facility] Hep B, Adol or Pedi Dosage 2005-09-20 00:00:00 Completed [facility] Pneumococcal 13 Conjugate, PCV13 (Prevnar 13) 2005-09-20 00:00:00 Completed [facility] Polio (IPV/OPV) 2005-09-20 00:00:00 Completed [facility] DTaP, Unspecified Formulation 2005-09-20 00:00:00 Completed [facility] HEPATITIS A 2005-09-20 00:00:00 Completed [facility] HIB 4 Dose Schedule 2005-09-20 00:00:00 Completed [facility] Pneumococcal 7 Conjugate, PCV7 (Prevnar7) 2005-09-20 00:00:00 Completed [facility] IPV 2005-09-20 00:00:00 Completed [facility] DTAP 2005-09-20 00:00:00 Completed [facility] HIB 3 Dose Schedule 2005-09-20 00:00:00 Completed [facility] Hepatitis A Adult 2005-09-20 00:00:00 Completed [facility] Hep B, Adol or Pedi Dosage 2005-09-20 00:00:00 Completed [facility] Pneumococcal 13 Conjugate, PCV13 (Prevnar 13) 2005-09-20 00:00:00 Completed [facility] Polio (IPV/OPV) 2005-09-20 00:00:00 Completed [facility] DTaP, Unspecified Formulation 2005-09-20 00:00:00 Completed [facility] HEPATITIS A 2005-09-20 00:00:00 Completed [facility] HIB 4 Dose Schedule 2005-09-20 00:00:00 Completed [facility] Pneumococcal 7 Conjugate, PCV7 (Prevnar7) 2005-09-20 00:00:00 Completed [facility] IPV 2005-09-20 00:00:00 Completed [facility] DTAP 2005-09-20 00:00:00 Completed [facility] HIB 3 Dose Schedule 2005-09-20 00:00:00 Completed [facility] Hepatitis A Adult 2005-09-20 00:00:00 Completed [facility] Hep B, Adol or Pedi Dosage 2005-09-20 00:00:00 Completed [facility] Pneumococcal 13 Conjugate, PCV13 (Prevnar 13) 2005-09-20 00:00:00 Completed [facility] Polio (IPV/OPV) 2005-09-20 00:00:00 Completed [facility] DTaP, Unspecified Formulation 2005-09-20 00:00:00 Completed [facility] HEPATITIS A 2005-09-20 00:00:00 Completed [facility] HIB 4 Dose Schedule 2005-09-20 00:00:00 Completed [facility] Pneumococcal 7 Conjugate, PCV7 (Prevnar7) 2005-09-20 00:00:00 Completed [facility] IPV 2005-09-20 00:00:00 Completed [facility] DTAP 2005-09-20 00:00:00 Completed [facility] HIB 3 Dose Schedule 2005-09-20 00:00:00 Completed [facility] Hepatitis A Adult 2005-09-20 00:00:00 Completed [facility] Hep B, Adol or Pedi Dosage 2005-09-20 00:00:00 Completed [facility] Pneumococcal 13 Conjugate, PCV13 (Prevnar 13) 2005-09-20 00:00:00 Completed [facility] Polio (IPV/OPV) 2005-09-20 00:00:00 Completed [facility] DTaP, Unspecified Formulation 2005-09-20 00:00:00 Completed [facility] HEPATITIS A 2005-09-20 00:00:00 Completed [facility] HIB 4 Dose Schedule 2005-09-20 00:00:00 Completed [facility] Pneumococcal 7 Conjugate, PCV7 (Prevnar7) 2005-09-20 00:00:00 Completed [facility] IPV 2005-09-20 00:00:00 Completed [facility] DTAP 2005-09-20 00:00:00 Completed [facility] HIB 3 Dose Schedule 2005-09-20 00:00:00 Completed [facility] Hepatitis A Adult 2005-09-20 00:00:00 Completed [facility] Hep B, Adol or Pedi Dosage 2005-09-20 00:00:00 Completed [facility] Pneumococcal 13 Conjugate, PCV13 (Prevnar 13) 2005-09-20 00:00:00 Completed [facility] Polio (IPV/OPV) 2005-09-20 00:00:00 Completed [facility] DTaP, Unspecified Formulation 2005-09-20 00:00:00 Completed [facility] HEPATITIS A 2005-09-20 00:00:00 Completed [facility] HIB 4 Dose Schedule 2005-09-20 00:00:00 Completed [facility] Pneumococcal 7 Conjugate, PCV7 (Prevnar7) 2005-09-20 00:00:00 Completed [facility] IPV 2005-09-20 00:00:00 Completed [facility] DTAP 2005-09-20 00:00:00 Completed [facility] HIB 3 Dose Schedule 2005-09-20 00:00:00 Completed [facility] Hepatitis A Adult 2005-09-20 00:00:00 Completed [facility] Hep B, Adol or Pedi Dosage 2005-09-20 00:00:00 Completed [facility] Pneumococcal 13 Conjugate, PCV13 (Prevnar 13) 2005-09-20 00:00:00 Completed [facility] Polio (IPV/OPV) 2005-09-20 00:00:00 Completed [facility] DTaP, Unspecified Formulation 2005-09-20 00:00:00 Completed [facility] HEPATITIS A 2005-09-20 00:00:00 Completed [facility] HIB 4 Dose Schedule 2005-09-20 00:00:00 Completed [facility] Pneumococcal 7 Conjugate, PCV7 (Prevnar7) 2005-09-20 00:00:00 Completed [facility] IPV 2005-09-20 00:00:00 Completed [facility] DTAP 2005-09-20 00:00:00 Completed [facility] HIB 3 Dose Schedule 2005-09-20 00:00:00 Completed [facility] Hepatitis A Adult 2005-09-20 00:00:00 Completed [facility] Hep B, Adol or Pedi Dosage 2005-09-20 00:00:00 Completed [facility] Pneumococcal 13 Conjugate, PCV13 (Prevnar 13) 2005-09-20 00:00:00 Completed [facility] Polio (IPV/OPV) 2005-09-20 00:00:00 Completed [facility] DTaP, Unspecified Formulation 2005-09-20 00:00:00 Completed [facility] HEPATITIS A 2005-09-20 00:00:00 Completed [facility] HIB 4 Dose Schedule 2005-09-20 00:00:00 Completed [facility] Pneumococcal 7 Conjugate, PCV7 (Prevnar7) 2005-09-20 00:00:00 Completed [facility] IPV 2005-09-20 00:00:00 Completed [facility] DTAP 2005-09-20 00:00:00 Completed [facility] HIB 3 Dose Schedule 2005-09-20 00:00:00 Completed [facility] Hepatitis A Adult 2005-09-20 00:00:00 Completed [facility] Hep B, Adol or Pedi Dosage 2005-09-20 00:00:00 Completed [facility] Pneumococcal 13 Conjugate, PCV13 (Prevnar 13) 2005-09-20 00:00:00 Completed [facility] Polio (IPV/OPV) 2005-09-20 00:00:00 Completed [facility] DTaP, Unspecified Formulation 2005-09-20 00:00:00 Completed [facility] HEPATITIS A 2005-09-20 00:00:00 Completed [facility] HIB 4 Dose Schedule 2005-09-20 00:00:00 Completed [facility] Pneumococcal 7 Conjugate, PCV7 (Prevnar7) 2005-09-20 00:00:00 Completed [facility] IPV 2005-09-20 00:00:00 Completed [facility] DTAP 2005-09-20 00:00:00 Completed [facility] HIB 3 Dose Schedule 2005-09-20 00:00:00 Completed [facility] Hepatitis A Adult 2005-09-20 00:00:00 Completed [facility] Hep B, Adol or Pedi Dosage 2005-09-20 00:00:00 Completed [facility] Pneumococcal 13 Conjugate, PCV13 (Prevnar 13) 2005-09-20 00:00:00 Completed [facility] Polio (IPV/OPV) 2005-09-20 00:00:00 Completed [facility] DTaP, Unspecified Formulation 2005-09-20 00:00:00 Completed [facility] HEPATITIS A 2005-09-20 00:00:00 Completed [facility] HIB 4 Dose Schedule 2005-09-20 00:00:00 Completed [facility] Pneumococcal 7 Conjugate, PCV7 (Prevnar7) 2005-09-20 00:00:00 Completed [facility] IPV 2005-09-20 00:00:00 Completed [facility] DTAP 2005-09-20 00:00:00 Completed [facility] HIB 3 Dose Schedule 2005-09-20 00:00:00 Completed [facility] Hepatitis A Adult 2005-09-20 00:00:00 Completed [facility] Hep B, Adol or Pedi Dosage 2005-09-20 00:00:00 Completed [facility] Pneumococcal 13 Conjugate, PCV13 (Prevnar 13) 2005-09-20 00:00:00 Completed [facility] Polio (IPV/OPV) 2005-09-20 00:00:00 Completed [facility] DTaP, Unspecified Formulation 2005-09-20 00:00:00 Completed [facility] HEPATITIS A 2005-09-20 00:00:00 Completed [facility] HIB 4 Dose Schedule 2005-09-20 00:00:00 Completed [facility] Pneumococcal 7 Conjugate, PCV7 (Prevnar7) 2005-09-20 00:00:00 Completed [facility] IPV 2005-09-20 00:00:00 Completed [facility] DTAP 2005-09-20 00:00:00 Completed [facility] HIB 3 Dose Schedule 2005-09-20 00:00:00 Completed [facility] Hepatitis A Adult 2005-09-20 00:00:00 Completed [facility] Hep B, Adol or Pedi Dosage 2005-09-20 00:00:00 Completed [facility] Pneumococcal 13 Conjugate, PCV13 (Prevnar 13) 2005-09-20 00:00:00 Completed [facility] Polio (IPV/OPV) 2005-09-20 00:00:00 Completed [facility] DTaP, Unspecified Formulation 2005-09-20 00:00:00 Completed [facility] HEPATITIS A 2005-09-20 00:00:00 Completed [facility] HIB 4 Dose Schedule 2005-09-20 00:00:00 Completed [facility] Pneumococcal 7 Conjugate, PCV7 (Prevnar7) 2005-09-20 00:00:00 Completed [facility] IPV 2005-09-20 00:00:00 Completed [facility] DTAP 2005-09-20 00:00:00 Completed [facility] HIB 3 Dose Schedule 2005-09-20 00:00:00 Completed [facility] Hepatitis A Adult 2005-09-20 00:00:00 Completed [facility] Hep B, Adol or Pedi Dosage 2005-09-20 00:00:00 Completed [facility] Pneumococcal 13 Conjugate, PCV13 (Prevnar 13) 2005-09-20 00:00:00 Completed [facility] Polio (IPV/OPV) 2005-09-20 00:00:00 Completed [facility] DTaP, Unspecified Formulation 2005-09-20 00:00:00 Completed [facility] HEPATITIS A 2005-09-20 00:00:00 Completed [facility] HIB 4 Dose Schedule 2005-09-20 00:00:00 Completed [facility] Pneumococcal 7 Conjugate, PCV7 (Prevnar7) 2005-09-20 00:00:00 Completed [facility] IPV 2005-09-20 00:00:00 Completed [facility] DTAP 2005-09-20 00:00:00 Completed [facility] HIB 3 Dose Schedule 2005-09-20 00:00:00 Completed [facility] Hepatitis A Adult 2005-09-20 00:00:00 Completed [facility] Hep B, Adol or Pedi Dosage 2005-09-20 00:00:00 Completed [facility] Pneumococcal 13 Conjugate, PCV13 (Prevnar 13) 2005-09-20 00:00:00 Completed [facility] Polio (IPV/OPV) 2005-09-20 00:00:00 Completed [facility] DTaP, Unspecified Formulation 2005-09-20 00:00:00 Completed [facility] HEPATITIS A 2005-09-20 00:00:00 Completed [facility] HIB 4 Dose Schedule 2005-09-20 00:00:00 Completed [facility] Pneumococcal 7 Conjugate, PCV7 (Prevnar7) 2005-09-20 00:00:00 Completed [facility] IPV 2005-09-20 00:00:00 Completed [facility] DTAP 2005-09-20 00:00:00 Completed [facility] HIB 3 Dose Schedule 2005-09-20 00:00:00 Completed [facility] Hepatitis A Adult 2005-09-20 00:00:00 Completed [facility] Hep B, Adol or Pedi Dosage 2005-09-20 00:00:00 Completed [facility] Pneumococcal 13 Conjugate, PCV13 (Prevnar 13) 2005-09-20 00:00:00 Completed [facility] Polio (IPV/OPV) 2005-09-20 00:00:00 Completed [facility] DTaP, Unspecified Formulation 2005-09-20 00:00:00 Completed [facility] HEPATITIS A 2005-09-20 00:00:00 Completed [facility] HIB 4 Dose Schedule 2005-09-20 00:00:00 Completed [facility] Pneumococcal 7 Conjugate, PCV7 (Prevnar7) 2005-09-20 00:00:00 [facility] [facility] IPV 2005-09-20 00:00:00 Completed [facility] DTAP 2005-09-20 00:00:00 Completed [facility] HIB 3 Dose Schedule 2005-09-20 00:00:00 Completed [facility] Hepatitis A Adult 2005-09-20 00:00:00 Completed [facility] Hep B, Adol or Pedi Dosage 2005-09-20 00:00:00 Completed [facility] Pneumococcal 13 Conjugate, PCV13 (Prevnar 13) 2005-09-20 00:00:00 Completed [facility] Polio (IPV/OPV) 2005-09-20 00:00:00 Completed [facility] DTaP, Unspecified Formulation 2005-09-20 00:00:00 Completed [facility] HEPATITIS A 2005-09-20 00:00:00 Completed [facility] HIB 4 Dose Schedule 2005-09-20 00:00:00 Completed [facility] Pneumococcal 7 Conjugate, PCV7 (Prevnar7) 2005-09-20 00:00:00 Completed [facility] IPV 2005-09-20 00:00:00 Completed [facility] DTAP 2005-09-20 00:00:00 Completed [facility] HIB 3 Dose Schedule 2005-09-20 00:00:00 Completed [facility] Hepatitis A Adult 2005-09-20 00:00:00 Completed [facility] Hep B, Adol or Pedi Dosage 2005-09-20 00:00:00 Completed [facility] Pneumococcal 13 Conjugate, PCV13 (Prevnar 13) 2005-09-20 00:00:00 Completed [facility] Polio (IPV/OPV) 2005-09-20 00:00:00 Completed [facility] DTaP, Unspecified Formulation 2005-09-20 00:00:00 Completed [facility] HEPATITIS A 2005-09-20 00:00:00 Completed [facility] HIB 4 Dose Schedule 2005-09-20 00:00:00 Completed [facility] Pneumococcal 7 Conjugate, PCV7 (Prevnar7) 2005-09-20 00:00:00 Completed [facility] IPV 2005-09-20 00:00:00 Completed [facility] DTAP 2005-09-20 00:00:00 Completed [facility] HIB 3 Dose Schedule 2005-09-20 00:00:00 Completed [facility] Hepatitis A Adult 2005-09-20 00:00:00 Completed [facility] Hep B, Adol or Pedi Dosage 2005-09-20 00:00:00 Completed [facility] Pneumococcal 13 Conjugate, PCV13 (Prevnar 13) 2005-09-20 00:00:00 Completed [facility] Polio (IPV/OPV) 2005-09-20 00:00:00 Completed [facility] DTaP, Unspecified Formulation 2005-09-20 00:00:00 Completed [facility] HEPATITIS A 2005-09-20 00:00:00 Completed [facility] HIB 4 Dose Schedule 2005-09-20 00:00:00 Completed [facility] Pneumococcal 7 Conjugate, PCV7 (Prevnar7) 2005-09-20 00:00:00 Completed [facility] IPV 2005-09-20 00:00:00 Completed [facility] DTAP 2005-09-20 00:00:00 Completed [facility] HIB 3 Dose Schedule 2005-09-20 00:00:00 Completed [facility] Hepatitis A Adult 2005-09-20 00:00:00 Completed [facility] Hep B, Adol or Pedi Dosage 2005-09-20 00:00:00 Completed [facility] Pneumococcal 13 Conjugate, PCV13 (Prevnar 13) 2005-09-20 00:00:00 Completed [facility] Polio (IPV/OPV) 2005-09-20 00:00:00 Completed [facility] DTaP, Unspecified Formulation 2005-09-20 00:00:00 Completed [facility] HEPATITIS A 2005-09-20 00:00:00 Completed [facility] HIB 4 Dose Schedule 2005-09-20 00:00:00 Completed [facility] Pneumococcal 7 Conjugate, PCV7 (Prevnar7) 2005-09-20 00:00:00 Completed [facility] IPV 2005-09-20 00:00:00 Completed [facility] DTAP 2005-09-20 00:00:00 Completed [facility] HIB 3 Dose Schedule 2005-09-20 00:00:00 Completed [facility] Hepatitis A Adult 2005-09-20 00:00:00 Completed [facility] Hep B, Adol or Pedi Dosage 2005-09-20 00:00:00 Completed [facility] Pneumococcal 13 Conjugate, PCV13 (Prevnar 13) 2005-09-20 00:00:00 Completed [facility] Polio (IPV/OPV) 2005-09-20 00:00:00 Completed [facility] DTaP, Unspecified Formulation 2005-09-20 00:00:00 Completed [facility] HEPATITIS A 2005-09-20 00:00:00 Completed [facility] HIB 4 Dose Schedule 2005-09-20 00:00:00 Completed [facility] Pneumococcal 7 Conjugate, PCV7 (Prevnar7) 2005-09-20 00:00:00 Completed [facility] IPV 2005-09-20 00:00:00 Completed [facility] DTAP 2005-09-20 00:00:00 Completed [facility] HIB 3 Dose Schedule 2005-09-20 00:00:00 Completed [facility] Hepatitis A Adult 2005-09-20 00:00:00 Completed [facility] Hep B, Adol or Pedi Dosage 2005-09-20 00:00:00 Completed [facility] Pneumococcal 13 Conjugate, PCV13 (Prevnar 13) 2005-09-20 00:00:00 Completed [facility] Polio (IPV/OPV) 2005-09-20 00:00:00 Completed [facility] DTaP, Unspecified Formulation 2005-09-20 00:00:00 Completed [facility] HEPATITIS A 2005-09-20 00:00:00 Completed [facility] HIB 4 Dose Schedule 2005-09-20 00:00:00 Completed [facility] Pneumococcal 7 Conjugate, PCV7 (Prevnar7) 2005-09-20 00:00:00 Completed [facility] IPV 2005-09-20 00:00:00 Completed [facility] DTAP 2005-09-20 00:00:00 Completed [facility] HIB 3 Dose Schedule 2005-09-20 00:00:00 Completed [facility] Hepatitis A Adult 2005-09-20 00:00:00 Completed [facility] Hep B, Adol or Pedi Dosage 2005-09-20 00:00:00 Completed [facility] Pneumococcal 13 Conjugate, PCV13 (Prevnar 13) 2005-09-20 00:00:00 Completed [facility] Polio (IPV/OPV) 2005-09-20 00:00:00 Completed [facility] DTaP, Unspecified Formulation 2005-09-20 00:00:00 Completed [facility] HEPATITIS A 2005-09-20 00:00:00 Completed [facility] HIB 4 Dose Schedule 2005-09-20 00:00:00 Completed [facility] Pneumococcal 7 Conjugate, PCV7 (Prevnar7) 2005-09-20 00:00:00 Completed [facility] IPV 2005-09-20 00:00:00 Completed [facility] DTAP 2004-07-22 00:00:00 Completed [facility] Hep B, Adol or Pedi Dosage 2004-07-22 00:00:00 Completed [facility] MMR 2004-07-22 00:00:00 Completed [facility] Polio (IPV/OPV) 2004-07-22 00:00:00 Completed [facility] Varicella (varivax)(chicken pox) 2004-07-22 00:00:00 Completed [facility] DTAP 2004-07-22 00:00:00 Completed [facility] Hep B, Adol or Pedi Dosage 2004-07-22 00:00:00 Completed [facility] MMR 2004-07-22 00:00:00 Completed [facility] Polio (IPV/OPV) 2004-07-22 00:00:00 Completed [facility] Varicella (varivax)(chicken pox) 2004-07-22 00:00:00 Completed [facility] DTAP 2004-07-22 00:00:00 Completed [facility] Hep B, Adol or Pedi Dosage 2004-07-22 00:00:00 Completed [facility] MMR 2004-07-22 00:00:00 Completed [facility] Polio (IPV/OPV) 2004-07-22 00:00:00 Completed [facility] Varicella (varivax)(chicken pox) 2004-07-22 00:00:00 Completed [facility] DTAP 2004-07-22 00:00:00 Completed [facility] Hep B, Adol or Pedi Dosage 2004-07-22 00:00:00 Completed [facility] MMR 2004-07-22 00:00:00 Completed [facility] Polio (IPV/OPV) 2004-07-22 00:00:00 Completed [facility] Varicella (varivax)(chicken pox) 2004-07-22 00:00:00 Completed [facility] DTAP 2004-07-22 00:00:00 Completed [facility] Hep B, Adol or Pedi Dosage 2004-07-22 00:00:00 Completed [facility] MMR 2004-07-22 00:00:00 Completed [facility] Polio (IPV/OPV) 2004-07-22 00:00:00 Completed [facility] Varicella (varivax)(chicken pox) 2004-07-22 00:00:00 Completed [facility] DTAP 2004-07-22 00:00:00 Completed [facility] Hep B, Adol or Pedi Dosage 2004-07-22 00:00:00 Completed [facility] MMR 2004-07-22 00:00:00 Completed [facility] Polio (IPV/OPV) 2004-07-22 00:00:00 Completed [facility] Varicella (varivax)(chicken pox) 2004-07-22 00:00:00 Completed [facility] DTAP 2004-07-22 00:00:00 Completed [facility] Hep B, Adol or Pedi Dosage 2004-07-22 00:00:00 Completed [facility] MMR 2004-07-22 00:00:00 Completed [facility] Polio (IPV/OPV) 2004-07-22 00:00:00 Completed [facility] Varicella (varivax)(chicken pox) 2004-07-22 00:00:00 Completed [facility] DTAP 2004-07-22 00:00:00 Completed [facility] Hep B, Adol or Pedi Dosage 2004-07-22 00:00:00 Completed [facility] MMR 2004-07-22 00:00:00 Completed [facility] Polio (IPV/OPV) 2004-07-22 00:00:00 Completed [facility] Varicella (varivax)(chicken pox) 2004-07-22 00:00:00 Completed [facility] DTAP 2004-07-22 00:00:00 Completed [facility] Hep B, Adol or Pedi Dosage 2004-07-22 00:00:00 Completed [facility] MMR 2004-07-22 00:00:00 Completed [facility] Polio (IPV/OPV) 2004-07-22 00:00:00 Completed [facility] Varicella (varivax)(chicken pox) 2004-07-22 00:00:00 Completed [facility] DTAP 2004-07-22 00:00:00 Completed [facility] Hep B, Adol or Pedi Dosage 2004-07-22 00:00:00 Completed [facility] MMR 2004-07-22 00:00:00 Completed [facility] Polio (IPV/OPV) 2004-07-22 00:00:00 Completed [facility] Varicella (varivax)(chicken pox) 2004-07-22 00:00:00 Completed [facility] DTAP 2004-07-22 00:00:00 Completed [facility] Hep B, Adol or Pedi Dosage 2004-07-22 00:00:00 Completed [facility] MMR 2004-07-22 00:00:00 Completed [facility] Polio (IPV/OPV) 2004-07-22 00:00:00 Completed [facility] Varicella (varivax)(chicken pox) 2004-07-22 00:00:00 Completed [facility] DTAP 2004-07-22 00:00:00 Completed [facility] Hep B, Adol or Pedi Dosage 2004-07-22 00:00:00 Completed [facility] MMR 2004-07-22 00:00:00 Completed [facility] Polio (IPV/OPV) 2004-07-22 00:00:00 Completed [facility] Varicella (varivax)(chicken pox) 2004-07-22 00:00:00 Completed [facility] DTAP 2004-07-22 00:00:00 Completed [facility] Hep B, Adol or Pedi Dosage 2004-07-22 00:00:00 Completed [facility] MMR 2004-07-22 00:00:00 Completed [facility] Polio (IPV/OPV) 2004-07-22 00:00:00 Completed [facility] Varicella (varivax)(chicken pox) 2004-07-22 00:00:00 Completed [facility] DTAP 2004-07-22 00:00:00 Completed [facility] Hep B, Adol or Pedi Dosage 2004-07-22 00:00:00 Completed [facility] MMR 2004-07-22 00:00:00 Completed [facility] Polio (IPV/OPV) 2004-07-22 00:00:00 Completed [facility] Varicella (varivax)(chicken pox) 2004-07-22 00:00:00 Completed [facility] DTAP 2004-07-22 00:00:00 Completed [facility] Hep B, Adol or Pedi Dosage 2004-07-22 00:00:00 Completed [facility] MMR 2004-07-22 00:00:00 Completed [facility] Polio (IPV/OPV) 2004-07-22 00:00:00 Completed [facility] Varicella (varivax)(chicken pox) 2004-07-22 00:00:00 Completed [facility] DTAP 2004-07-22 00:00:00 Completed [facility] Hep B, Adol or Pedi Dosage 2004-07-22 00:00:00 Completed [facility] MMR 2004-07-22 00:00:00 Completed [facility] Polio (IPV/OPV) 2004-07-22 00:00:00 Completed [facility] Varicella (varivax)(chicken pox) 2004-07-22 00:00:00 Completed [facility] DTAP 2004-07-22 00:00:00 Completed [facility] Hep B, Adol or Pedi Dosage 2004-07-22 00:00:00 Completed [facility] MMR 2004-07-22 00:00:00 Completed [facility] Polio (IPV/OPV) 2004-07-22 00:00:00 Completed [facility] Varicella (varivax)(chicken pox) 2004-07-22 00:00:00 Completed [facility] DTAP 2004-07-22 00:00:00 Completed [facility] Hep B, Adol or Pedi Dosage 2004-07-22 00:00:00 Completed [facility] MMR 2004-07-22 00:00:00 Completed [facility] Polio (IPV/OPV) 2004-07-22 00:00:00 Completed [facility] Varicella (varivax)(chicken pox) 2004-07-22 00:00:00 Completed [facility] DTAP 2004-07-22 00:00:00 Completed [facility] Hep B, Adol or Pedi Dosage 2004-07-22 00:00:00 Completed [facility] MMR 2004-07-22 00:00:00 Completed [facility] Polio (IPV/OPV) 2004-07-22 00:00:00 Completed [facility] Varicella (varivax)(chicken pox) 2004-07-22 00:00:00 Completed [facility] DTAP 2004-07-22 00:00:00 Completed [facility] Hep B, Adol or Pedi Dosage 2004-07-22 00:00:00 Completed [facility] MMR 2004-07-22 00:00:00 Completed [facility] Polio (IPV/OPV) 2004-07-22 00:00:00 Completed [facility] Varicella (varivax)(chicken pox) 2004-07-22 00:00:00 Completed [facility] DTAP 2004-07-22 00:00:00 Completed [facility] Hep B, Adol or Pedi Dosage 2004-07-22 00:00:00 Completed [facility] MMR 2004-07-22 00:00:00 Completed [facility] Polio (IPV/OPV) 2004-07-22 00:00:00 Completed [facility] Varicella (varivax)(chicken pox) 2004-07-22 00:00:00 Completed [facility] DTAP 2004-07-22 00:00:00 Completed [facility] Hep B, Adol or Pedi Dosage 2004-07-22 00:00:00 Completed [facility] MMR 2004-07-22 00:00:00 Completed [facility] Polio (IPV/OPV) 2004-07-22 00:00:00 Completed [facility] Varicella (varivax)(chicken pox) 2004-07-22 00:00:00 Completed [facility] DTAP 2004-07-22 00:00:00 Completed [facility] Hep B, Adol or Pedi Dosage 2004-07-22 00:00:00 Completed [facility] MMR 2004-07-22 00:00:00 Completed [facility] Polio (IPV/OPV) 2004-07-22 00:00:00 Completed [facility] Varicella (varivax)(chicken pox) 2004-07-22 00:00:00 Completed [facility] DTAP 2004-07-22 00:00:00 Completed [facility] Hep B, Adol or Pedi Dosage 2004-07-22 00:00:00 Completed [facility] MMR 2004-07-22 00:00:00 Completed [facility] Polio (IPV/OPV) 2004-07-22 00:00:00 Completed [facility] Varicella (varivax)(chicken pox) 2004-07-22 00:00:00 Completed [facility] DTAP 2004-07-22 00:00:00 Completed [facility] Hep B, Adol or Pedi Dosage 2004-07-22 00:00:00 Completed [facility] MMR 2004-07-22 00:00:00 Completed [facility] Polio (IPV/OPV) 2004-07-22 00:00:00 Completed [facility] Varicella (varivax)(chicken pox) 2004-07-22 00:00:00 Completed [facility] DTAP 2004-07-22 00:00:00 Completed [facility] Hep B, Adol or Pedi Dosage 2004-07-22 00:00:00 Completed [facility] MMR 2004-07-22 00:00:00 Completed [facility] Polio (IPV/OPV) 2004-07-22 00:00:00 Completed [facility] Varicella (varivax)(chicken pox) 2004-07-22 00:00:00 Completed [facility] DTAP 2004-07-22 00:00:00 Completed [facility] Hep B, Adol or Pedi Dosage 2004-07-22 00:00:00 Completed [facility] MMR 2004-07-22 00:00:00 Completed [facility] Polio (IPV/OPV) 2004-07-22 00:00:00 Completed [facility] Varicella (varivax)(chicken pox) 2004-07-22 00:00:00 Completed [facility] DTAP 2004-07-22 00:00:00 Completed [facility] Hep B, Adol or Pedi Dosage 2004-07-22 00:00:00 Completed [facility] MMR 2004-07-22 00:00:00 Completed [facility] Polio (IPV/OPV) 2004-07-22 00:00:00 Completed [facility] Varicella (varivax)(chicken pox) 2004-07-22 00:00:00 Completed [facility] DTAP 2004-07-22 00:00:00 Completed [facility] Hep B, Adol or Pedi Dosage 2004-07-22 00:00:00 Completed [facility] MMR 2004-07-22 00:00:00 Completed [facility] Polio (IPV/OPV) 2004-07-22 00:00:00 Completed [facility] Varicella (varivax)(chicken pox) 2004-07-22 00:00:00 Completed [facility] DTAP 2004-07-22 00:00:00 Completed [facility] Hep B, Adol or Pedi Dosage 2004-07-22 00:00:00 Completed [facility] MMR 2004-07-22 00:00:00 Completed [facility] Polio (IPV/OPV) 2004-07-22 00:00:00 Completed [facility] Varicella (varivax)(chicken pox) 2004-07-22 00:00:00 Completed [facility] DTAP 2004-07-22 00:00:00 Completed [facility] Hep B, Adol or Pedi Dosage 2004-07-22 00:00:00 Completed [facility] MMR 2004-07-22 00:00:00 Completed [facility] Polio (IPV/OPV) 2004-07-22 00:00:00 Completed [facility] Varicella (varivax)(chicken pox) 2004-07-22 00:00:00 Completed [facility] DTAP 2004-07-22 00:00:00 Completed [facility] Hep B, Adol or Pedi Dosage 2004-07-22 00:00:00 Completed [facility] MMR 2004-07-22 00:00:00 Completed [facility] Polio (IPV/OPV) 2004-07-22 00:00:00 Completed [facility] Varicella (varivax)(chicken pox) 2004-07-22 00:00:00 Completed [facility] DTAP 2004-07-22 00:00:00 Completed [facility] Hep B, Adol or Pedi Dosage 2004-07-22 00:00:00 Completed [facility] MMR 2004-07-22 00:00:00 Completed [facility] Polio (IPV/OPV) 2004-07-22 00:00:00 Completed [facility] Varicella (varivax)(chicken pox) 2004-07-22 00:00:00 Completed [facility] DTAP 2004-07-22 00:00:00 Completed [facility] Hep B, Adol or Pedi Dosage 2004-07-22 00:00:00 Completed [facility] MMR 2004-07-22 00:00:00 Completed [facility] Polio (IPV/OPV) 2004-07-22 00:00:00 Completed [facility] Varicella (varivax)(chicken pox) 2004-07-22 00:00:00 Completed [facility] DTAP 2004-07-22 00:00:00 Completed [facility] Hep B, Adol or Pedi Dosage 2004-07-22 00:00:00 Completed [facility] MMR 2004-07-22 00:00:00 Completed [facility] Polio (IPV/OPV) 2004-07-22 00:00:00 Completed [facility] Varicella (varivax)(chicken pox) 2004-07-22 00:00:00 Completed [facility] DTAP 2004-07-22 00:00:00 Completed [facility] Hep B, Adol or Pedi Dosage 2004-07-22 00:00:00 Completed [facility] MMR 2004-07-22 00:00:00 Completed [facility] Polio (IPV/OPV) 2004-07-22 00:00:00 Completed [facility] Varicella (varivax)(chicken pox) 2004-07-22 00:00:00 Completed [facility] DTAP 2004-07-22 00:00:00 Completed [facility] Hep B, Adol or Pedi Dosage 2004-07-22 00:00:00 Completed [facility] MMR 2004-07-22 00:00:00 Completed [facility] Polio (IPV/OPV) 2004-07-22 00:00:00 Completed [facility] Varicella (varivax)(chicken pox) 2004-07-22 00:00:00 Completed [facility] DTAP 2004-07-22 00:00:00 Completed [facility] Hep B, Adol or Pedi Dosage 2004-07-22 00:00:00 Completed [facility] MMR 2004-07-22 00:00:00 Completed [facility] Polio (IPV/OPV) 2004-07-22 00:00:00 Completed [facility] Varicella (varivax)(chicken pox) 2004-07-22 00:00:00 Completed [facility] DTaP, Unspecified Formulation 2004-07-22 00:00:00 Completed [facility] IPV 2004-07-22 00:00:00 Completed [facility] DTAP 2004-07-22 00:00:00 Completed [facility] Hep B, Adol or Pedi Dosage 2004-07-22 00:00:00 Completed [facility] MMR 2004-07-22 00:00:00 Completed [facility] Polio (IPV/OPV) 2004-07-22 00:00:00 Completed [facility] Varicella (varivax)(chicken pox) 2004-07-22 00:00:00 Completed [facility] DTaP, Unspecified Formulation 2004-07-22 00:00:00 Completed [facility] IPV 2004-07-22 00:00:00 Completed [facility] DTAP 2004-07-22 00:00:00 Completed [facility] Hep B, Adol or Pedi Dosage 2004-07-22 00:00:00 Completed [facility] MMR 2004-07-22 00:00:00 Completed [facility] Polio (IPV/OPV) 2004-07-22 00:00:00 Completed [facility] Varicella (varivax)(chicken pox) 2004-07-22 00:00:00 Completed [facility] DTaP, Unspecified Formulation 2004-07-22 00:00:00 Completed [facility] IPV 2004-07-22 00:00:00 Completed [facility] DTAP 2004-07-22 00:00:00 Completed [facility] Hep B, Adol or Pedi Dosage 2004-07-22 00:00:00 Completed [facility] MMR 2004-07-22 00:00:00 Completed [facility] Polio (IPV/OPV) 2004-07-22 00:00:00 Completed [facility] Varicella (varivax)(chicken pox) 2004-07-22 00:00:00 Completed [facility] DTaP, Unspecified Formulation 2004-07-22 00:00:00 Completed [facility] IPV 2004-07-22 00:00:00 Completed [facility] DTAP 2004-07-22 00:00:00 [facility] [facility] Hep B, Adol or Pedi Dosage 2004-07-22 00:00:00 Completed [facility] MMR 2004-07-22 00:00:00 Completed [facility] Polio (IPV/OPV) 2004-07-22 00:00:00 Completed [facility] Varicella (varivax)(chicken pox) 2004-07-22 00:00:00 Completed [facility] DTaP, Unspecified Formulation 2004-07-22 00:00:00 Completed [facility] IPV 2004-07-22 00:00:00 Completed [facility] DTAP 2004-07-22 00:00:00 Completed [facility] Hep B, Adol or Pedi Dosage 2004-07-22 00:00:00 Completed [facility] MMR 2004-07-22 00:00:00 Completed [facility] Polio (IPV/OPV) 2004-07-22 00:00:00 Completed [facility] Varicella (varivax)(chicken pox) 2004-07-22 00:00:00 Completed [facility] DTaP, Unspecified Formulation 2004-07-22 00:00:00 Completed [facility] IPV 2004-07-22 00:00:00 Completed [facility] DTAP 2004-07-22 00:00:00 Completed [facility] Hep B, Adol or Pedi Dosage 2004-07-22 00:00:00 Completed [facility] MMR 2004-07-22 00:00:00 Completed [facility] Polio (IPV/OPV) 2004-07-22 00:00:00 Completed [facility] Varicella (varivax)(chicken pox) 2004-07-22 00:00:00 Completed [facility] DTaP, Unspecified Formulation 2004-07-22 00:00:00 Completed [facility] IPV 2004-07-22 00:00:00 Completed [facility] DTAP 2004-07-22 00:00:00 Completed [facility] Hep B, Adol or Pedi Dosage 2004-07-22 00:00:00 Completed [facility] MMR 2004-07-22 00:00:00 Completed [facility] Polio (IPV/OPV) 2004-07-22 00:00:00 Completed [facility] Varicella (varivax)(chicken pox) 2004-07-22 00:00:00 Completed [facility] DTaP, Unspecified Formulation 2004-07-22 00:00:00 Completed [facility] IPV 2004-07-22 00:00:00 Completed [facility] DTAP 2004-07-22 00:00:00 Completed [facility] Hep B, Adol or Pedi Dosage 2004-07-22 00:00:00 Completed [facility] MMR 2004-07-22 00:00:00 Completed [facility] Polio (IPV/OPV) 2004-07-22 00:00:00 Completed [facility] Varicella (varivax)(chicken pox) 2004-07-22 00:00:00 Completed [facility] DTaP, Unspecified Formulation 2004-07-22 00:00:00 Completed [facility] IPV 2004-07-22 00:00:00 Completed [facility] DTAP 2004-07-22 00:00:00 Completed [facility] Hep B, Adol or Pedi Dosage 2004-07-22 00:00:00 Completed [facility] MMR 2004-07-22 00:00:00 Completed [facility] Polio (IPV/OPV) 2004-07-22 00:00:00 Completed [facility] Varicella (varivax)(chicken pox) 2004-07-22 00:00:00 Completed [facility] DTaP, Unspecified Formulation 2004-07-22 00:00:00 Completed [facility] IPV 2004-07-22 00:00:00 Completed [facility] DTAP 2004-07-22 00:00:00 Completed [facility] Hep B, Adol or Pedi Dosage 2004-07-22 00:00:00 Completed [facility] MMR 2004-07-22 00:00:00 Completed [facility] Polio (IPV/OPV) 2004-07-22 00:00:00 Completed [facility] Varicella (varivax)(chicken pox) 2004-07-22 00:00:00 Completed [facility] DTaP, Unspecified Formulation 2004-07-22 00:00:00 Completed [facility] IPV 2004-07-22 00:00:00 Completed [facility] DTAP 2004-07-22 00:00:00 Completed [facility] Hep B, Adol or Pedi Dosage 2004-07-22 00:00:00 Completed [facility] MMR 2004-07-22 00:00:00 Completed [facility] Polio (IPV/OPV) 2004-07-22 00:00:00 Completed [facility] Varicella (varivax)(chicken pox) 2004-07-22 00:00:00 Completed [facility] DTaP, Unspecified Formulation 2004-07-22 00:00:00 Completed [facility] IPV 2004-07-22 00:00:00 Completed [facility] DTAP 2004-07-22 00:00:00 Completed [facility] Hep B, Adol or Pedi Dosage 2004-07-22 00:00:00 Completed [facility] MMR 2004-07-22 00:00:00 Completed [facility] Polio (IPV/OPV) 2004-07-22 00:00:00 Completed [facility] Varicella (varivax)(chicken pox) 2004-07-22 00:00:00 Completed [facility] DTaP, Unspecified Formulation 2004-07-22 00:00:00 Completed [facility] IPV 2004-07-22 00:00:00 Completed [facility] DTAP 2004-07-22 00:00:00 Completed [facility] Hep B, Adol or Pedi Dosage 2004-07-22 00:00:00 Completed [facility] MMR 2004-07-22 00:00:00 Completed [facility] Polio (IPV/OPV) 2004-07-22 00:00:00 Completed [facility] Varicella (varivax)(chicken pox) 2004-07-22 00:00:00 Completed [facility] DTaP, Unspecified Formulation 2004-07-22 00:00:00 Completed [facility] IPV 2004-07-22 00:00:00 Completed [facility] DTAP 2004-07-22 00:00:00 Completed [facility] Hep B, Adol or Pedi Dosage 2004-07-22 00:00:00 Completed [facility] MMR 2004-07-22 00:00:00 Completed [facility] Polio (IPV/OPV) 2004-07-22 00:00:00 Completed [facility] Varicella (varivax)(chicken pox) 2004-07-22 00:00:00 Completed [facility] DTaP, Unspecified Formulation 2004-07-22 00:00:00 Completed [facility] IPV 2004-07-22 00:00:00 Completed [facility] DTAP 2004-07-22 00:00:00 Completed [facility] Hep B, Adol or Pedi Dosage 2004-07-22 00:00:00 Completed [facility] MMR 2004-07-22 00:00:00 Completed [facility] Polio (IPV/OPV) 2004-07-22 00:00:00 Completed [facility] Varicella (varivax)(chicken pox) 2004-07-22 00:00:00 Completed [facility] DTaP, Unspecified Formulation 2004-07-22 00:00:00 Completed [facility] IPV 2004-07-22 00:00:00 Completed [facility] DTAP 2004-07-22 00:00:00 Completed [facility] Hep B, Adol or Pedi Dosage 2004-07-22 00:00:00 Completed [facility] MMR 2004-07-22 00:00:00 Completed [facility] Polio (IPV/OPV) 2004-07-22 00:00:00 Completed [facility] Varicella (varivax)(chicken pox) 2004-07-22 00:00:00 Completed [facility] DTaP, Unspecified Formulation 2004-07-22 00:00:00 Completed [facility] IPV 2004-07-22 00:00:00 Completed [facility] DTAP 2004-07-22 00:00:00 Completed [facility] Hep B, Adol or Pedi Dosage 2004-07-22 00:00:00 Completed [facility] MMR 2004-07-22 00:00:00 Completed [facility] Polio (IPV/OPV) 2004-07-22 00:00:00 Completed [facility] Varicella (varivax)(chicken pox) 2004-07-22 00:00:00 Completed [facility] DTaP, Unspecified Formulation 2004-07-22 00:00:00 Completed [facility] IPV 2004-07-22 00:00:00 Completed [facility] DTAP 2004-07-22 00:00:00 Completed [facility] Hep B, Adol or Pedi Dosage 2004-07-22 00:00:00 Completed [facility] MMR 2004-07-22 00:00:00 Completed [facility] Polio (IPV/OPV) 2004-07-22 00:00:00 Completed [facility] Varicella (varivax)(chicken pox) 2004-07-22 00:00:00 Completed [facility] DTaP, Unspecified Formulation 2004-07-22 00:00:00 Completed [facility] IPV 2004-07-22 00:00:00 Completed [facility] DTAP 2004-07-22 00:00:00 Completed [facility] Hep B, Adol or Pedi Dosage 2004-07-22 00:00:00 Completed [facility] MMR 2004-07-22 00:00:00 Completed [facility] Polio (IPV/OPV) 2004-07-22 00:00:00 Completed [facility] Varicella (varivax)(chicken pox) 2004-07-22 00:00:00 Completed [facility] DTaP, Unspecified Formulation 2004-07-22 00:00:00 Completed [facility] IPV 2004-07-22 00:00:00 Completed [facility] DTAP 2004-07-22 00:00:00 Completed [facility] Hep B, Adol or Pedi Dosage 2004-07-22 00:00:00 Completed [facility] MMR 2004-07-22 00:00:00 Completed [facility] Polio (IPV/OPV) 2004-07-22 00:00:00 Completed [facility] Varicella (varivax)(chicken pox) 2004-07-22 00:00:00 Completed [facility] DTaP, Unspecified Formulation 2004-07-22 00:00:00 Completed [facility] IPV 2004-07-22 00:00:00 Completed [facility] DTAP 2004-07-22 00:00:00 Completed [facility] Hep B, Adol or Pedi Dosage 2004-07-22 00:00:00 Completed [facility] MMR 2004-07-22 00:00:00 Completed [facility] Polio (IPV/OPV) 2004-07-22 00:00:00 Completed [facility] Varicella (varivax)(chicken pox) 2004-07-22 00:00:00 Completed [facility] DTaP, Unspecified Formulation 2004-07-22 00:00:00 Completed [facility] IPV 2004-07-22 00:00:00 Completed [facility] DTAP 2004-07-22 00:00:00 Completed [facility] Hep B, Adol or Pedi Dosage 2004-07-22 00:00:00 Completed [facility] MMR 2004-07-22 00:00:00 Completed [facility] Polio (IPV/OPV) 2004-07-22 00:00:00 Completed [facility] Varicella (varivax)(chicken pox) 2004-07-22 00:00:00 Completed [facility] DTaP, Unspecified Formulation 2004-07-22 00:00:00 Completed [facility] IPV 2004-07-22 00:00:00 Completed [facility] DTAP 2004-07-22 00:00:00 Completed [facility] Hep B, Adol or Pedi Dosage 2004-07-22 00:00:00 Completed [facility] MMR 2004-07-22 00:00:00 Completed [facility] Polio (IPV/OPV) 2004-07-22 00:00:00 Completed [facility] Varicella (varivax)(chicken pox) 2004-07-22 00:00:00 Completed [facility] DTaP, Unspecified Formulation 2004-07-22 00:00:00 Completed [facility] IPV 2004-07-22 00:00:00 Completed [facility] DTAP 2004-07-22 00:00:00 Completed [facility] Hep B, Adol or Pedi Dosage 2004-07-22 00:00:00 Completed [facility] MMR 2004-07-22 00:00:00 Completed [facility] Polio (IPV/OPV) 2004-07-22 00:00:00 Completed [facility] Varicella (varivax)(chicken pox) 2004-07-22 00:00:00 Completed [facility] DTaP, Unspecified Formulation 2004-07-22 00:00:00 Completed [facility] IPV 2004-07-22 00:00:00 Completed [facility] DTAP 2004-07-22 00:00:00 Completed [facility] Hep B, Adol or Pedi Dosage 2004-07-22 00:00:00 Completed [facility] MMR 2004-07-22 00:00:00 Completed [facility] Polio (IPV/OPV) 2004-07-22 00:00:00 Completed [facility] Varicella (varivax)(chicken pox) 2004-07-22 00:00:00 Completed [facility] DTaP, Unspecified Formulation 2004-07-22 00:00:00 Completed [facility] IPV 2004-07-22 00:00:00 Completed [facility] DTAP 2003-06-04 00:00:00 Completed [facility] HIB 3 Dose Schedule 2003-06-04 00:00:00 Completed [facility] Hep B, Adol or Pedi Dosage 2003-06-04 00:00:00 Completed [facility] MMR 2003-06-04 00:00:00 Completed [facility] Polio (IPV/OPV) 2003-06-04 00:00:00 Completed [facility] Varicella (varivax)(chicken pox) 2003-06-04 00:00:00 Completed [facility] DTAP 2003-06-04 00:00:00 Completed [facility] HIB 3 Dose Schedule 2003-06-04 00:00:00 Completed [facility] Hep B, Adol or Pedi Dosage 2003-06-04 00:00:00 Completed [facility] MMR 2003-06-04 00:00:00 Completed [facility] Polio (IPV/OPV) 2003-06-04 00:00:00 Completed [facility] Varicella (varivax)(chicken pox) 2003-06-04 00:00:00 Completed [facility] DTAP 2003-06-04 00:00:00 Completed [facility] HIB 3 Dose Schedule 2003-06-04 00:00:00 Completed [facility] Hep B, Adol or Pedi Dosage 2003-06-04 00:00:00 Completed [facility] MMR 2003-06-04 00:00:00 Completed [facility] Polio (IPV/OPV) 2003-06-04 00:00:00 Completed [facility] Varicella (varivax)(chicken pox) 2003-06-04 00:00:00 Completed [facility] DTAP 2003-06-04 00:00:00 Completed [facility] HIB 3 Dose Schedule 2003-06-04 00:00:00 Completed [facility] Hep B, Adol or Pedi Dosage 2003-06-04 00:00:00 Completed [facility] MMR 2003-06-04 00:00:00 Completed [facility] Polio (IPV/OPV) 2003-06-04 00:00:00 Completed [facility] Varicella (varivax)(chicken pox) 2003-06-04 00:00:00 Completed [facility] DTAP 2003-06-04 00:00:00 Completed [facility] HIB 3 Dose Schedule 2003-06-04 00:00:00 Completed [facility] Hep B, Adol or Pedi Dosage 2003-06-04 00:00:00 Completed [facility] MMR 2003-06-04 00:00:00 Completed [facility] Polio (IPV/OPV) 2003-06-04 00:00:00 Completed [facility] Varicella (varivax)(chicken pox) 2003-06-04 00:00:00 Completed [facility] DTAP 2003-06-04 00:00:00 Completed [facility] HIB 3 Dose Schedule 2003-06-04 00:00:00 Completed [facility] Hep B, Adol or Pedi Dosage 2003-06-04 00:00:00 Completed [facility] MMR 2003-06-04 00:00:00 Completed [facility] Polio (IPV/OPV) 2003-06-04 00:00:00 Completed [facility] Varicella (varivax)(chicken pox) 2003-06-04 00:00:00 Completed [facility] DTAP 2003-06-04 00:00:00 Completed [facility] HIB 3 Dose Schedule 2003-06-04 00:00:00 Completed [facility] Hep B, Adol or Pedi Dosage 2003-06-04 00:00:00 Completed [facility] MMR 2003-06-04 00:00:00 Completed [facility] Polio (IPV/OPV) 2003-06-04 00:00:00 Completed [facility] Varicella (varivax)(chicken pox) 2003-06-04 00:00:00 Completed [facility] DTAP 2003-06-04 00:00:00 Completed [facility] HIB 3 Dose Schedule 2003-06-04 00:00:00 Completed [facility] Hep B, Adol or Pedi Dosage 2003-06-04 00:00:00 Completed [facility] MMR 2003-06-04 00:00:00 Completed [facility] Polio (IPV/OPV) 2003-06-04 00:00:00 Completed [facility] Varicella (varivax)(chicken pox) 2003-06-04 00:00:00 Completed [facility] DTAP 2003-06-04 00:00:00 Completed [facility] HIB 3 Dose Schedule 2003-06-04 00:00:00 Completed [facility] Hep B, Adol or Pedi Dosage 2003-06-04 00:00:00 Completed [facility] MMR 2003-06-04 00:00:00 Completed [facility] Polio (IPV/OPV) 2003-06-04 00:00:00 Completed [facility] Varicella (varivax)(chicken pox) 2003-06-04 00:00:00 Completed [facility] DTAP 2003-06-04 00:00:00 Completed [facility] HIB 3 Dose Schedule 2003-06-04 00:00:00 Completed [facility] Hep B, Adol or Pedi Dosage 2003-06-04 00:00:00 Completed [facility] MMR 2003-06-04 00:00:00 Completed [facility] Polio (IPV/OPV) 2003-06-04 00:00:00 Completed [facility] Varicella (varivax)(chicken pox) 2003-06-04 00:00:00 Completed [facility] DTAP 2003-06-04 00:00:00 Completed [facility] HIB 3 Dose Schedule 2003-06-04 00:00:00 Completed [facility] Hep B, Adol or Pedi Dosage 2003-06-04 00:00:00 Completed [facility] MMR 2003-06-04 00:00:00 Completed [facility] Polio (IPV/OPV) 2003-06-04 00:00:00 Completed [facility] Varicella (varivax)(chicken pox) 2003-06-04 00:00:00 Completed [facility] DTAP 2003-06-04 00:00:00 Completed [facility] HIB 3 Dose Schedule 2003-06-04 00:00:00 Completed [facility] Hep B, Adol or Pedi Dosage 2003-06-04 00:00:00 Completed [facility] MMR 2003-06-04 00:00:00 Completed [facility] Polio (IPV/OPV) 2003-06-04 00:00:00 Completed [facility] Varicella (varivax)(chicken pox) 2003-06-04 00:00:00 Completed [facility] DTAP 2003-06-04 00:00:00 Completed [facility] HIB 3 Dose Schedule 2003-06-04 00:00:00 Completed [facility] Hep B, Adol or Pedi Dosage 2003-06-04 00:00:00 Completed [facility] MMR 2003-06-04 00:00:00 Completed [facility] Polio (IPV/OPV) 2003-06-04 00:00:00 Completed [facility] Varicella (varivax)(chicken pox) 2003-06-04 00:00:00 Completed [facility] DTAP 2003-06-04 00:00:00 Completed [facility] HIB 3 Dose Schedule 2003-06-04 00:00:00 Completed [facility] Hep B, Adol or Pedi Dosage 2003-06-04 00:00:00 Completed [facility] MMR 2003-06-04 00:00:00 Completed [facility] Polio (IPV/OPV) 2003-06-04 00:00:00 Completed [facility] Varicella (varivax)(chicken pox) 2003-06-04 00:00:00 Completed [facility] DTAP 2003-06-04 00:00:00 Completed [facility] HIB 3 Dose Schedule 2003-06-04 00:00:00 Completed [facility] Hep B, Adol or Pedi Dosage 2003-06-04 00:00:00 Completed [facility] MMR 2003-06-04 00:00:00 Completed [facility] Polio (IPV/OPV) 2003-06-04 00:00:00 Completed [facility] Varicella (varivax)(chicken pox) 2003-06-04 00:00:00 Completed [facility] DTAP 2003-06-04 00:00:00 Completed [facility] HIB 3 Dose Schedule 2003-06-04 00:00:00 Completed [facility] Hep B, Adol or Pedi Dosage 2003-06-04 00:00:00 Completed [facility] MMR 2003-06-04 00:00:00 Completed [facility] Polio (IPV/OPV) 2003-06-04 00:00:00 Completed [facility] Varicella (varivax)(chicken pox) 2003-06-04 00:00:00 Completed [facility] DTAP 2003-06-04 00:00:00 Completed [facility] HIB 3 Dose Schedule 2003-06-04 00:00:00 Completed [facility] Hep B, Adol or Pedi Dosage 2003-06-04 00:00:00 Completed [facility] MMR 2003-06-04 00:00:00 Completed [facility] Polio (IPV/OPV) 2003-06-04 00:00:00 Completed [facility] Varicella (varivax)(chicken pox) 2003-06-04 00:00:00 Completed [facility] DTAP 2003-06-04 00:00:00 Completed [facility] HIB 3 Dose Schedule 2003-06-04 00:00:00 Completed [facility] Hep B, Adol or Pedi Dosage 2003-06-04 00:00:00 Completed [facility] MMR 2003-06-04 00:00:00 Completed [facility] Polio (IPV/OPV) 2003-06-04 00:00:00 Completed [facility] Varicella (varivax)(chicken pox) 2003-06-04 00:00:00 Completed [facility] DTAP 2003-06-04 00:00:00 Completed [facility] HIB 3 Dose Schedule 2003-06-04 00:00:00 Completed [facility] Hep B, Adol or Pedi Dosage 2003-06-04 00:00:00 Completed [facility] MMR 2003-06-04 00:00:00 Completed [facility] Polio (IPV/OPV) 2003-06-04 00:00:00 Completed [facility] Varicella (varivax)(chicken pox) 2003-06-04 00:00:00 Completed [facility] DTAP 2003-06-04 00:00:00 Completed [facility] HIB 3 Dose Schedule 2003-06-04 00:00:00 Completed [facility] Hep B, Adol or Pedi Dosage 2003-06-04 00:00:00 Completed [facility] MMR 2003-06-04 00:00:00 Completed [facility] Polio (IPV/OPV) 2003-06-04 00:00:00 Completed [facility] Varicella (varivax)(chicken pox) 2003-06-04 00:00:00 Completed [facility] DTAP 2003-06-04 00:00:00 Completed [facility] HIB 3 Dose Schedule 2003-06-04 00:00:00 Completed [facility] Hep B, Adol or Pedi Dosage 2003-06-04 00:00:00 Completed [facility] MMR 2003-06-04 00:00:00 Completed [facility] Polio (IPV/OPV) 2003-06-04 00:00:00 Completed [facility] Varicella (varivax)(chicken pox) 2003-06-04 00:00:00 Completed [facility] DTAP 2003-06-04 00:00:00 Completed [facility] HIB 3 Dose Schedule 2003-06-04 00:00:00 Completed [facility] Hep B, Adol or Pedi Dosage 2003-06-04 00:00:00 Completed [facility] MMR 2003-06-04 00:00:00 Completed [facility] Polio (IPV/OPV) 2003-06-04 00:00:00 Completed [facility] Varicella (varivax)(chicken pox) 2003-06-04 00:00:00 Completed [facility] DTAP 2003-06-04 00:00:00 Completed [facility] HIB 3 Dose Schedule 2003-06-04 00:00:00 Completed [facility] Hep B, Adol or Pedi Dosage 2003-06-04 00:00:00 Completed [facility] MMR 2003-06-04 00:00:00 Completed [facility] Polio (IPV/OPV) 2003-06-04 00:00:00 Completed [facility] Varicella (varivax)(chicken pox) 2003-06-04 00:00:00 Completed [facility] DTAP 2003-06-04 00:00:00 Completed [facility] HIB 3 Dose Schedule 2003-06-04 00:00:00 Completed [facility] Hep B, Adol or Pedi Dosage 2003-06-04 00:00:00 Completed [facility] MMR 2003-06-04 00:00:00 Completed [facility] Polio (IPV/OPV) 2003-06-04 00:00:00 Completed [facility] Varicella (varivax)(chicken pox) 2003-06-04 00:00:00 Completed [facility] DTAP 2003-06-04 00:00:00 Completed [facility] HIB 3 Dose Schedule 2003-06-04 00:00:00 Completed [facility] Hep B, Adol or Pedi Dosage 2003-06-04 00:00:00 Completed [facility] MMR 2003-06-04 00:00:00 Completed [facility] Polio (IPV/OPV) 2003-06-04 00:00:00 Completed [facility] Varicella (varivax)(chicken pox) 2003-06-04 00:00:00 Completed [facility] DTAP 2003-06-04 00:00:00 Completed [facility] HIB 3 Dose Schedule 2003-06-04 00:00:00 Completed [facility] Hep B, Adol or Pedi Dosage 2003-06-04 00:00:00 Completed [facility] MMR 2003-06-04 00:00:00 Completed [facility] Polio (IPV/OPV) 2003-06-04 00:00:00 Completed [facility] Varicella (varivax)(chicken pox) 2003-06-04 00:00:00 Completed [facility] DTAP 2003-06-04 00:00:00 Completed [facility] HIB 3 Dose Schedule 2003-06-04 00:00:00 Completed [facility] Hep B, Adol or Pedi Dosage 2003-06-04 00:00:00 Completed [facility] MMR 2003-06-04 00:00:00 Completed [facility] Polio (IPV/OPV) 2003-06-04 00:00:00 Completed [facility] Varicella (varivax)(chicken pox) 2003-06-04 00:00:00 Completed [facility] DTAP 2003-06-04 00:00:00 Completed [facility] HIB 3 Dose Schedule 2003-06-04 00:00:00 Completed [facility] Hep B, Adol or Pedi Dosage 2003-06-04 00:00:00 Completed [facility] MMR 2003-06-04 00:00:00 Completed [facility] Polio (IPV/OPV) 2003-06-04 00:00:00 Completed [facility] Varicella (varivax)(chicken pox) 2003-06-04 00:00:00 Completed [facility] DTAP 2003-06-04 00:00:00 Completed [facility] HIB 3 Dose Schedule 2003-06-04 00:00:00 Completed [facility] Hep B, Adol or Pedi Dosage 2003-06-04 00:00:00 Completed [facility] MMR 2003-06-04 00:00:00 Completed [facility] Polio (IPV/OPV) 2003-06-04 00:00:00 Completed [facility] Varicella (varivax)(chicken pox) 2003-06-04 00:00:00 Completed [facility] DTAP 2003-06-04 00:00:00 Completed [facility] HIB 3 Dose Schedule 2003-06-04 00:00:00 Completed [facility] Hep B, Adol or Pedi Dosage 2003-06-04 00:00:00 Completed [facility] MMR 2003-06-04 00:00:00 Completed [facility] Polio (IPV/OPV) 2003-06-04 00:00:00 Completed [facility] Varicella (varivax)(chicken pox) 2003-06-04 00:00:00 Completed [facility] DTAP 2003-06-04 00:00:00 Completed [facility] HIB 3 Dose Schedule 2003-06-04 00:00:00 Completed [facility] Hep B, Adol or Pedi Dosage 2003-06-04 00:00:00 Completed [facility] MMR 2003-06-04 00:00:00 Completed [facility] Polio (IPV/OPV) 2003-06-04 00:00:00 Completed [facility] Varicella (varivax)(chicken pox) 2003-06-04 00:00:00 Completed [facility] DTAP 2003-06-04 00:00:00 Completed [facility] HIB 3 Dose Schedule 2003-06-04 00:00:00 Completed [facility] Hep B, Adol or Pedi Dosage 2003-06-04 00:00:00 Completed [facility] MMR 2003-06-04 00:00:00 Completed [facility] Polio (IPV/OPV) 2003-06-04 00:00:00 Completed [facility] Varicella (varivax)(chicken pox) 2003-06-04 00:00:00 Completed [facility] DTAP 2003-06-04 00:00:00 Completed [facility] HIB 3 Dose Schedule 2003-06-04 00:00:00 Completed [facility] Hep B, Adol or Pedi Dosage 2003-06-04 00:00:00 Completed [facility] MMR 2003-06-04 00:00:00 Completed [facility] Polio (IPV/OPV) 2003-06-04 00:00:00 Completed [facility] Varicella (varivax)(chicken pox) 2003-06-04 00:00:00 Completed [facility] DTAP 2003-06-04 00:00:00 Completed [facility] HIB 3 Dose Schedule 2003-06-04 00:00:00 Completed [facility] Hep B, Adol or Pedi Dosage 2003-06-04 00:00:00 Completed [facility] MMR 2003-06-04 00:00:00 Completed [facility] Polio (IPV/OPV) 2003-06-04 00:00:00 Completed [facility] Varicella (varivax)(chicken pox) 2003-06-04 00:00:00 Completed [facility] DTAP 2003-06-04 00:00:00 Completed [facility] HIB 3 Dose Schedule 2003-06-04 00:00:00 Completed [facility] Hep B, Adol or Pedi Dosage 2003-06-04 00:00:00 Completed [facility] MMR 2003-06-04 00:00:00 Completed [facility] Polio (IPV/OPV) 2003-06-04 00:00:00 Completed [facility] Varicella (varivax)(chicken pox) 2003-06-04 00:00:00 Completed [facility] DTAP 2003-06-04 00:00:00 Completed [facility] HIB 3 Dose Schedule 2003-06-04 00:00:00 Completed [facility] Hep B, Adol or Pedi Dosage 2003-06-04 00:00:00 Completed [facility] MMR 2003-06-04 00:00:00 Completed [facility] Polio (IPV/OPV) 2003-06-04 00:00:00 Completed [facility] Varicella (varivax)(chicken pox) 2003-06-04 00:00:00 Completed [facility] DTAP 2003-06-04 00:00:00 Completed [facility] HIB 3 Dose Schedule 2003-06-04 00:00:00 Completed [facility] Hep B, Adol or Pedi Dosage 2003-06-04 00:00:00 Completed [facility] MMR 2003-06-04 00:00:00 Completed [facility] Polio (IPV/OPV) 2003-06-04 00:00:00 Completed [facility] Varicella (varivax)(chicken pox) 2003-06-04 00:00:00 Completed [facility] DTAP 2003-06-04 00:00:00 Completed [facility] HIB 3 Dose Schedule 2003-06-04 00:00:00 Completed [facility] Hep B, Adol or Pedi Dosage 2003-06-04 00:00:00 Completed [facility] MMR 2003-06-04 00:00:00 Completed [facility] Polio (IPV/OPV) 2003-06-04 00:00:00 Completed [facility] Varicella (varivax)(chicken pox) 2003-06-04 00:00:00 Completed [facility] DTaP, Unspecified Formulation 2003-06-04 00:00:00 Completed [facility] HIB 4 Dose Schedule 2003-06-04 00:00:00 Completed [facility] IPV 2003-06-04 00:00:00 Completed [facility] DTAP 2003-06-04 00:00:00 Completed [facility] HIB 3 Dose Schedule 2003-06-04 00:00:00 Completed [facility] Hep B, Adol or Pedi Dosage 2003-06-04 00:00:00 Completed [facility] MMR 2003-06-04 00:00:00 Completed [facility] Polio (IPV/OPV) 2003-06-04 00:00:00 Completed [facility] Varicella (varivax)(chicken pox) 2003-06-04 00:00:00 Completed [facility] DTaP, Unspecified Formulation 2003-06-04 00:00:00 Completed [facility] HIB 4 Dose Schedule 2003-06-04 00:00:00 Completed [facility] IPV 2003-06-04 00:00:00 Completed [facility] DTAP 2003-06-04 00:00:00 Completed [facility] HIB 3 Dose Schedule 2003-06-04 00:00:00 Completed [facility] Hep B, Adol or Pedi Dosage 2003-06-04 00:00:00 Completed [facility] MMR 2003-06-04 00:00:00 Completed [facility] Polio (IPV/OPV) 2003-06-04 00:00:00 Completed [facility] Varicella (varivax)(chicken pox) 2003-06-04 00:00:00 Completed [facility] DTaP, Unspecified Formulation 2003-06-04 00:00:00 Completed [facility] HIB 4 Dose Schedule 2003-06-04 00:00:00 Completed [facility] IPV 2003-06-04 00:00:00 Completed [facility] DTAP 2003-06-04 00:00:00 Completed [facility] HIB 3 Dose Schedule 2003-06-04 00:00:00 Completed [facility] Hep B, Adol or Pedi Dosage 2003-06-04 00:00:00 Completed [facility] MMR 2003-06-04 00:00:00 Completed [facility] Polio (IPV/OPV) 2003-06-04 00:00:00 Completed [facility] Varicella (varivax)(chicken pox) 2003-06-04 00:00:00 Completed [facility] DTaP, Unspecified Formulation 2003-06-04 00:00:00 Completed [facility] HIB 4 Dose Schedule 2003-06-04 00:00:00 Completed [facility] IPV 2003-06-04 00:00:00 Completed [facility] DTAP 2003-06-04 00:00:00 Completed [facility] HIB 3 Dose Schedule 2003-06-04 00:00:00 Completed [facility] Hep B, Adol or Pedi Dosage 2003-06-04 00:00:00 Completed [facility] MMR 2003-06-04 00:00:00 Completed [facility] Polio (IPV/OPV) 2003-06-04 00:00:00 Completed [facility] Varicella (varivax)(chicken pox) 2003-06-04 00:00:00 Completed [facility] DTaP, Unspecified Formulation 2003-06-04 00:00:00 Completed [facility] HIB 4 Dose Schedule 2003-06-04 00:00:00 Completed [facility] IPV 2003-06-04 00:00:00 Completed [facility] DTAP 2003-06-04 00:00:00 Completed [facility] HIB 3 Dose Schedule 2003-06-04 00:00:00 Completed [facility] Hep B, Adol or Pedi Dosage 2003-06-04 00:00:00 Completed [facility] MMR 2003-06-04 00:00:00 Completed [facility] Polio (IPV/OPV) 2003-06-04 00:00:00 Completed [facility] Varicella (varivax)(chicken pox) 2003-06-04 00:00:00 Completed [facility] DTaP, Unspecified Formulation 2003-06-04 00:00:00 Completed [facility] HIB 4 Dose Schedule 2003-06-04 00:00:00 Completed [facility] IPV 2003-06-04 00:00:00 Completed [facility] DTAP 2003-06-04 00:00:00 Completed [facility] HIB 3 Dose Schedule 2003-06-04 00:00:00 Completed [facility] Hep B, Adol or Pedi Dosage 2003-06-04 00:00:00 Completed [facility] MMR 2003-06-04 00:00:00 Completed [facility] Polio (IPV/OPV) 2003-06-04 00:00:00 Completed [facility] Varicella (varivax)(chicken pox) 2003-06-04 00:00:00 Completed [facility] DTaP, Unspecified Formulation 2003-06-04 00:00:00 Completed [facility] HIB 4 Dose Schedule 2003-06-04 00:00:00 Completed [facility] IPV 2003-06-04 00:00:00 Completed [facility] DTAP 2003-06-04 00:00:00 Completed [facility] HIB 3 Dose Schedule 2003-06-04 00:00:00 Completed [facility] Hep B, Adol or Pedi Dosage 2003-06-04 00:00:00 Completed [facility] MMR 2003-06-04 00:00:00 Completed [facility] Polio (IPV/OPV) 2003-06-04 00:00:00 Completed [facility] Varicella (varivax)(chicken pox) 2003-06-04 00:00:00 Completed [facility] DTaP, Unspecified Formulation 2003-06-04 00:00:00 Completed [facility] HIB 4 Dose Schedule 2003-06-04 00:00:00 Completed [facility] IPV 2003-06-04 00:00:00 Completed [facility] DTAP 2003-06-04 00:00:00 Completed [facility] HIB 3 Dose Schedule 2003-06-04 00:00:00 Completed [facility] Hep B, Adol or Pedi Dosage 2003-06-04 00:00:00 Completed [facility] MMR 2003-06-04 00:00:00 Completed [facility] Polio (IPV/OPV) 2003-06-04 00:00:00 Completed [facility] Varicella (varivax)(chicken pox) 2003-06-04 00:00:00 Completed [facility] DTaP, Unspecified Formulation 2003-06-04 00:00:00 Completed [facility] HIB 4 Dose Schedule 2003-06-04 00:00:00 Completed [facility] IPV 2003-06-04 00:00:00 Completed [facility] DTAP 2003-06-04 00:00:00 Completed [facility] HIB 3 Dose Schedule 2003-06-04 00:00:00 Completed [facility] Hep B, Adol or Pedi Dosage 2003-06-04 00:00:00 Completed [facility] MMR 2003-06-04 00:00:00 Completed [facility] Polio (IPV/OPV) 2003-06-04 00:00:00 Completed [facility] Varicella (varivax)(chicken pox) 2003-06-04 00:00:00 Completed [facility] DTaP, Unspecified Formulation 2003-06-04 00:00:00 Completed [facility] HIB 4 Dose Schedule 2003-06-04 00:00:00 Completed [facility] IPV 2003-06-04 00:00:00 Completed [facility] DTAP 2003-06-04 00:00:00 Completed [facility] HIB 3 Dose Schedule 2003-06-04 00:00:00 Completed [facility] Hep B, Adol or Pedi Dosage 2003-06-04 00:00:00 Completed [facility] MMR 2003-06-04 00:00:00 Completed [facility] Polio (IPV/OPV) 2003-06-04 00:00:00 Completed [facility] Varicella (varivax)(chicken pox) 2003-06-04 00:00:00 Completed [facility] DTaP, Unspecified Formulation 2003-06-04 00:00:00 Completed [facility] HIB 4 Dose Schedule 2003-06-04 00:00:00 Completed [facility] IPV 2003-06-04 00:00:00 Completed [facility] DTAP 2003-06-04 00:00:00 Completed [facility] HIB 3 Dose Schedule 2003-06-04 00:00:00 Completed [facility] Hep B, Adol or Pedi Dosage 2003-06-04 00:00:00 Completed [facility] MMR 2003-06-04 00:00:00 Completed [facility] Polio (IPV/OPV) 2003-06-04 00:00:00 Completed [facility] Varicella (varivax)(chicken pox) 2003-06-04 00:00:00 Completed [facility] DTaP, Unspecified Formulation 2003-06-04 00:00:00 Completed [facility] HIB 4 Dose Schedule 2003-06-04 00:00:00 Completed [facility] IPV 2003-06-04 00:00:00 Completed [facility] DTAP 2003-06-04 00:00:00 Completed [facility] HIB 3 Dose Schedule 2003-06-04 00:00:00 Completed [facility] Hep B, Adol or Pedi Dosage 2003-06-04 00:00:00 Completed [facility] MMR 2003-06-04 00:00:00 Completed [facility] Polio (IPV/OPV) 2003-06-04 00:00:00 Completed [facility] Varicella (varivax)(chicken pox) 2003-06-04 00:00:00 Completed [facility] DTaP, Unspecified Formulation 2003-06-04 00:00:00 Completed [facility] HIB 4 Dose Schedule 2003-06-04 00:00:00 Completed [facility] IPV 2003-06-04 00:00:00 Completed [facility] DTAP 2003-06-04 00:00:00 Completed [facility] HIB 3 Dose Schedule 2003-06-04 00:00:00 Completed [facility] Hep B, Adol or Pedi Dosage 2003-06-04 00:00:00 Completed [facility] MMR 2003-06-04 00:00:00 Completed [facility] Polio (IPV/OPV) 2003-06-04 00:00:00 Completed [facility] Varicella (varivax)(chicken pox) 2003-06-04 00:00:00 Completed [facility] DTaP, Unspecified Formulation 2003-06-04 00:00:00 Completed [facility] HIB 4 Dose Schedule 2003-06-04 00:00:00 Completed [facility] IPV 2003-06-04 00:00:00 Completed [facility] DTAP 2003-06-04 00:00:00 Completed [facility] HIB 3 Dose Schedule 2003-06-04 00:00:00 Completed [facility] Hep B, Adol or Pedi Dosage 2003-06-04 00:00:00 Completed [facility] MMR 2003-06-04 00:00:00 Completed [facility] Polio (IPV/OPV) 2003-06-04 00:00:00 Completed [facility] Varicella (varivax)(chicken pox) 2003-06-04 00:00:00 Completed [facility] DTaP, Unspecified Formulation 2003-06-04 00:00:00 Completed [facility] HIB 4 Dose Schedule 2003-06-04 00:00:00 Completed [facility] IPV 2003-06-04 00:00:00 Completed [facility] DTAP 2003-06-04 00:00:00 Completed [facility] HIB 3 Dose Schedule 2003-06-04 00:00:00 Completed [facility] Hep B, Adol or Pedi Dosage 2003-06-04 00:00:00 Completed [facility] MMR 2003-06-04 00:00:00 Completed [facility] Polio (IPV/OPV) 2003-06-04 00:00:00 Completed [facility] Varicella (varivax)(chicken pox) 2003-06-04 00:00:00 Completed [facility] DTaP, Unspecified Formulation 2003-06-04 00:00:00 Completed [facility] HIB 4 Dose Schedule 2003-06-04 00:00:00 Completed [facility] IPV 2003-06-04 00:00:00 Completed [facility] DTAP 2003-06-04 00:00:00 Completed [facility] HIB 3 Dose Schedule 2003-06-04 00:00:00 Completed [facility] Hep B, Adol or Pedi Dosage 2003-06-04 00:00:00 Completed [facility] MMR 2003-06-04 00:00:00 Completed [facility] Polio (IPV/OPV) 2003-06-04 00:00:00 Completed [facility] Varicella (varivax)(chicken pox) 2003-06-04 00:00:00 Completed [facility] DTaP, Unspecified Formulation 2003-06-04 00:00:00 Completed [facility] HIB 4 Dose Schedule 2003-06-04 00:00:00 Completed [facility] IPV 2003-06-04 00:00:00 Completed [facility] DTAP 2003-06-04 00:00:00 Completed [facility] HIB 3 Dose Schedule 2003-06-04 00:00:00 Completed [facility] Hep B, Adol or Pedi Dosage 2003-06-04 00:00:00 Completed [facility] MMR 2003-06-04 00:00:00 Completed [facility] Polio (IPV/OPV) 2003-06-04 00:00:00 Completed [facility] Varicella (varivax)(chicken pox) 2003-06-04 00:00:00 Completed [facility] DTaP, Unspecified Formulation 2003-06-04 00:00:00 Completed [facility] HIB 4 Dose Schedule 2003-06-04 00:00:00 Completed [facility] IPV 2003-06-04 00:00:00 Completed [facility] DTAP 2003-06-04 00:00:00 Completed [facility] HIB 3 Dose Schedule 2003-06-04 00:00:00 Completed [facility] Hep B, Adol or Pedi Dosage 2003-06-04 00:00:00 Completed [facility] MMR 2003-06-04 00:00:00 Completed [facility] Polio (IPV/OPV) 2003-06-04 00:00:00 Completed [facility] Varicella (varivax)(chicken pox) 2003-06-04 00:00:00 Completed [facility] DTaP, Unspecified Formulation 2003-06-04 00:00:00 Completed [facility] HIB 4 Dose Schedule 2003-06-04 00:00:00 Completed [facility] IPV 2003-06-04 00:00:00 Completed [facility] DTAP 2003-06-04 00:00:00 Completed [facility] HIB 3 Dose Schedule 2003-06-04 00:00:00 Completed [facility] Hep B, Adol or Pedi Dosage 2003-06-04 00:00:00 Completed [facility] MMR 2003-06-04 00:00:00 Completed [facility] Polio (IPV/OPV) 2003-06-04 00:00:00 Completed [facility] Varicella (varivax)(chicken pox) 2003-06-04 00:00:00 Completed [facility] DTaP, Unspecified Formulation 2003-06-04 00:00:00 Completed [facility] HIB 4 Dose Schedule 2003-06-04 00:00:00 Completed [facility] IPV 2003-06-04 00:00:00 Completed [facility] DTAP 2003-06-04 00:00:00 Completed [facility] HIB 3 Dose Schedule 2003-06-04 00:00:00 Completed [facility] Hep B, Adol or Pedi Dosage 2003-06-04 00:00:00 Completed [facility] MMR 2003-06-04 00:00:00 Completed [facility] Polio (IPV/OPV) 2003-06-04 00:00:00 Completed [facility] Varicella (varivax)(chicken pox) 2003-06-04 00:00:00 Completed [facility] DTaP, Unspecified Formulation 2003-06-04 00:00:00 Completed [facility] HIB 4 Dose Schedule 2003-06-04 00:00:00 Completed [facility] IPV 2003-06-04 00:00:00 Completed [facility] DTAP 2003-06-04 00:00:00 Completed [facility] HIB 3 Dose Schedule 2003-06-04 00:00:00 Completed [facility] Hep B, Adol or Pedi Dosage 2003-06-04 00:00:00 Completed [facility] MMR 2003-06-04 00:00:00 Completed [facility] Polio (IPV/OPV) 2003-06-04 00:00:00 Completed [facility] Varicella (varivax)(chicken pox) 2003-06-04 00:00:00 Completed [facility] DTaP, Unspecified Formulation 2003-06-04 00:00:00 Completed [facility] HIB 4 Dose Schedule 2003-06-04 00:00:00 Completed [facility] IPV 2003-06-04 00:00:00 Completed [facility] DTAP 2003-06-04 00:00:00 Completed [facility] HIB 3 Dose Schedule 2003-06-04 00:00:00 Completed [facility] Hep B, Adol or Pedi Dosage 2003-06-04 00:00:00 Completed [facility] MMR 2003-06-04 00:00:00 Completed [facility] Polio (IPV/OPV) 2003-06-04 00:00:00 Completed [facility] Varicella (varivax)(chicken pox) 2003-06-04 00:00:00 Completed [facility] DTaP, Unspecified Formulation 2003-06-04 00:00:00 Completed [facility] HIB 4 Dose Schedule 2003-06-04 00:00:00 Completed [facility] IPV 2003-06-04 00:00:00 Completed [facility] DTAP 2003-06-04 00:00:00 Completed [facility] HIB 3 Dose Schedule 2003-06-04 00:00:00 Completed [facility] Hep B, Adol or Pedi Dosage 2003-06-04 00:00:00 Completed [facility] MMR 2003-06-04 00:00:00 Completed [facility] Polio (IPV/OPV) 2003-06-04 00:00:00 Completed [facility] Varicella (varivax)(chicken pox) 2003-06-04 00:00:00 Completed [facility] DTaP, Unspecified Formulation 2003-06-04 00:00:00 Completed [facility] HIB 4 Dose Schedule 2003-06-04 00:00:00 Completed [facility] IPV 2003-06-04 00:00:00 Completed [facility] DTAP 2003-06-04 00:00:00 Completed [facility] HIB 3 Dose Schedule 2003-06-04 00:00:00 Completed [facility] Hep B, Adol or Pedi Dosage 2003-06-04 00:00:00 Completed [facility] MMR 2003-06-04 00:00:00 Completed [facility] Polio (IPV/OPV) 2003-06-04 00:00:00 Completed [facility] Varicella (varivax)(chicken pox) 2003-06-04 00:00:00 Completed [facility] DTaP, Unspecified Formulation 2003-06-04 00:00:00 Completed [facility] HIB 4 Dose Schedule 2003-06-04 00:00:00 Completed [facility] IPV 2003-06-04 00:00:00 Completed [facility] DTAP 2003-06-04 00:00:00 Completed [facility] HIB 3 Dose Schedule 2003-06-04 00:00:00 Completed [facility] Hep B, Adol or Pedi Dosage 2003-06-04 00:00:00 Completed [facility] MMR 2003-06-04 00:00:00 Completed [facility] Polio (IPV/OPV) 2003-06-04 00:00:00 Completed [facility] Varicella (varivax)(chicken pox) 2003-06-04 00:00:00 Completed [facility] DTaP, Unspecified Formulation 2003-06-04 00:00:00 Completed [facility] HIB 4 Dose Schedule 2003-06-04 00:00:00 Completed [facility] IPV 2003-06-04 00:00:00 Completed [facility] DTAP Unknown Completed [facility] DTAP Unknown Completed [facility] DTAP Unknown Completed [facility] DTAP Unknown Completed [facility] HIB 3 Dose Schedule Unknown Completed [facility] HIB 3 Dose Schedule Unknown Completed [facility] Hepatitis A Adult Unknown Completed Un [facility] Hepatitis A Adult Unknown Completed [facility] Hep B, Adol or Pedi Dosage Unknown Completed [facility] Hep B, Adol or Pedi Dosage Unknown Completed [facility] Hep B, Adol or Pedi Dosage Unknown Completed [facility] Meningococcal Vaccine Unknown Completed [facility] MMR Unknown Completed [facility] MMR Unknown Completed [facility] Pneumococcal 13 Conjugate, PCV13 (Prevnar 13) Unknown Completed [facility] Polio (IPV/OPV) Unknown Completed [facility] Polio (IPV/OPV) Unknown Completed [facility] Polio (IPV/OPV) Unknown Completed [facility] Polio (IPV/OPV) Unknown Completed [facility] TDAP Unknown Completed [facility] Varicella (varivax)(chicken pox) Unknown Completed [facility] Varicella (varivax)(chicken pox) Unknown Completed [facility] Meningococcal B, OMV Unknown Completed [facility] Influenza Virus Vaccine Quad .5 mL IM 6+ MO (FLUZONE/FLULAVAL/FL UARIX) Unknown Completed [facility] TDAP Unknown Completed [facility] DTaP, Unspecified Formulation Unknown Completed [facility] DTaP, Unspecified Formulation Unknown Completed [facility] DTaP, Unspecified Formulation Unknown Completed [facility] DTaP, Unspecified Formulation Unknown Completed [facility] HEPA,NOS Unknown Completed [facility] HEPATITIS A Unknown Completed [facility] HIB 4 Dose Schedule Unknown Completed [facility] HIB 4 Dose Schedule Unknown Completed [facility] Meningococcal Polysaccharide (groups A, C, Y and W-135) conjugate vaccine (MCV4P) Unknown Completed [facility] Pneumococcal 7 Conjugate, PCV7 (Prevnar7) Unknown Completed [facility] IPV Unknown Completed [facility] IPV Unknown Completed [facility] IPV Unknown Completed [facility] IPV Unknown Completed [facility] TDAP Unknown Completed [facility] DTAP Unknown Completed [facility] DTAP Unknown Completed [facility] DTAP Unknown Completed [facility] DTAP Unknown Completed [facility] HIB 3 Dose Schedule Unknown Completed [facility] HIB 3 Dose Schedule Unknown Completed [facility]atitis [facility] Hep B, Adol or Pedi Dosage Unknown Completed [facility] Hep B, Adol or Pedi Dosage Unknown Completed [facility] Hep B, Adol or Pedi Dosage Unknown Completed [facility] Meningococcal Vaccine Unknown Completed [facility] MMR Unknown Completed [facility] MMR Unknown Completed [facility] Pneumococcal 13 Conjugate, PCV13 (Prevnar 13) Unknown Completed [facility] Polio (IPV/OPV) Unknown Completed [facility] Polio (IPV/OPV) Unknown Completed [facility] Polio (IPV/OPV) Unknown Completed [facility] Polio (IPV/OPV) Unknown Completed [facility] TDAP Unknown Completed [facility] Varicella (varivax)(chicken pox) Unknown Completed [facility] Varicella (varivax)(chicken pox) Unknown Completed [facility] Meningococcal B, OMV Unknown Completed [facility] Influenza Virus Vaccine Quad .5 mL IM 6+ MO (FLUZONE/FLULAVAL/FL UARIX) Unknown Completed [facility] TDAP Unknown Completed [facility] DTaP, Unspecified Formulation Unknown Completed [facility] DTaP, Unspecified Formulation Unknown Completed [facility] DTaP, Unspecified Formulation Unknown Completed [facility] DTaP, Unspecified Formulation Unknown Completed [facility] HEPA,NOS Unknown Completed [facility] HEPATITIS A Unknown Completed [facility] HIB 4 Dose Schedule Unknown Completed [facility] HIB 4 Dose Schedule Unknown Completed [facility] Meningococcal Polysaccharide (groups A, C, Y and W-135) conjugate vaccine (MCV4P) Unknown Completed [facility] Pneumococcal 7 Conjugate, PCV7 (Prevnar7) Unknown Completed [facility] IPV Unknown Completed [facility] IPV Unknown Completed [facility] IPV Unknown Completed [facility] IPV Unknown Completed [facility] TDAP Unknown Completed [facility] DTAP Unknown Completed [facility] DTAP Unknown Completed [facility] DTAP Unknown Completed [facility] DTAP Unknown Completed [facility] HIB 3 Dose Schedule Unknown Completed [facility] HIB 3 Dose Schedule Unknown Completed [facility] Hepatitis A Adult [facility] Adult Unknown Completed [facility] Hep B, Adol or Pedi Dosage Unknown Completed [facility] Hep B, Adol or Pedi Dosage Unknown Completed [facility] Hep B, Adol or Pedi Dosage Unknown Completed [facility] Meningococcal Vaccine Unknown Completed [facility] MMR Unknown Completed [facility] MMR Unknown Completed [facility] Pneumococcal 13 Conjugate, PCV13 (Prevnar 13) Unknown Completed [facility] Polio (IPV/OPV) Unknown Completed [facility] Polio (IPV/OPV) Unknown Completed [facility] Polio (IPV/OPV) Unknown Completed [facility] Polio (IPV/OPV) Unknown Completed [facility] TDAP Unknown Completed [facility] Varicella (varivax)(chicken pox) Unknown Completed [facility] Varicella (varivax)(chicken pox) Unknown Completed [facility] Meningococcal B, OMV Unknown Completed [facility] Influenza Virus Vaccine Quad .5 mL IM 6+ MO (FLUZONE/FLULAVAL/FL UARIX) Unknown Completed [facility] TDAP Unknown Completed [facility] DTaP, Unspecified Formulation Unknown Completed [facility] DTaP, Unspecified Formulation Unknown Completed [facility] DTaP, Unspecified Formulation Unknown Completed [facility] DTaP, Unspecified Formulation Unknown Completed [facility] HEPA,NOS Unknown Completed [facility] HEPATITIS A Unknown Completed [facility] HIB 4 Dose Schedule Unknown Completed [facility] HIB 4 Dose Schedule Unknown Completed [facility] Meningococcal Polysaccharide (groups A, C, Y and W-135) conjugate vaccine (MCV4P) Unknown Completed [facility] Pneumococcal 7 Conjugate, PCV7 (Prevnar7) Unknown Completed [facility] IPV Unknown Completed [facility] IPV Unknown Completed [facility] IPV Unknown Completed [facility] IPV Unknown Completed [facility] DTAP Unknown Completed [facility] DTAP Unknown Completed [facility] DTAP Unknown Completed [facility] DTAP Unknown Completed [facility] HIB 3 Dose Schedule Unknown Completed [facility] HIB 3 Dose Schedule Unknown Completed [facility] Hepatitis A Adult Unknown Completed Un [facility] Hepatitis A Adult Unknown Completed [facility] Hep B, Adol or Pedi Dosage Unknown Completed [facility] Hep B, Adol or Pedi Dosage Unknown Completed [facility] Hep B, Adol or Pedi Dosage Unknown Completed [facility] Meningococcal Vaccine Unknown Completed [facility] MMR Unknown Completed [facility] MMR Unknown Completed [facility] Pneumococcal 13 Conjugate, PCV13 (Prevnar 13) Unknown Completed [facility] Polio (IPV/OPV) Unknown Completed [facility] Polio (IPV/OPV) Unknown Completed [facility] Polio (IPV/OPV) Unknown Completed [facility] Polio (IPV/OPV) Unknown Completed [facility] TDAP Unknown Completed [facility] Varicella (varivax)(chicken pox) Unknown Completed [facility] Varicella (varivax)(chicken pox) Unknown Completed [facility] Meningococcal B, OMV Unknown Completed [facility] Influenza Virus Vaccine Quad .5 mL IM 6+ MO (FLUZONE/FLULAVAL/FL UARIX) Unknown Completed [facility] TDAP Unknown Completed [facility] DTaP, Unspecified Formulation Unknown Completed [facility] DTaP, Unspecified Formulation Unknown Completed [facility] DTaP, Unspecified Formulation Unknown Completed [facility] DTaP, Unspecified Formulation Unknown Completed [facility] HEPA,NOS Unknown Completed [facility] HEPATITIS A Unknown Completed [facility] HIB 4 Dose Schedule Unknown Completed [facility] HIB 4 Dose Schedule Unknown Completed [facility] Meningococcal Polysaccharide (groups A, C, Y and W-135) conjugate vaccine (MCV4P) Unknown Completed [facility] Pneumococcal 7 Conjugate, PCV7 (Prevnar7) Unknown Completed [facility] IPV Unknown Completed [facility] IPV Unknown Completed [facility] IPV Unknown Completed [facility] IPV Unknown Completed [facility] Vital Signs Vital Name Observation Time Observation Value Comments S ource Systolic blood pressure 2022-08-12 15:38:00 123 mm[Hg] [facility] Diastolic blood pressure 2022-08-12 15:38:00 81 mm[Hg] [facility] Heart rate 2022-08-12 15:38:00 92 /min [facility] Body temperature 2022-08-12 15:38:00 35.83 Nabila [facility] Respiratory rate 2022-08-12 15:38:00 18 /min [facility] Body height 2022-08-12 15:38:00 167.6 cm [facility] Body weight 2022-08-12 15:38:00 80.377 kg [facility] BMI 2022-08-12 15:38:00 28.60 kg/m2 [facility] Systolic blood pressure 2022-08-01 15:20:00 134 mm[Hg] [facility] Diastolic blood pressure 2022-08-01 15:20:00 90 mm[Hg] [facility] Heart rate 2022-08-01 14:55:00 91 /min [facility] Body temperature 2022-08-01 14:55:00 36.5 Nabila [facility] Respiratory rate 2022-08-01 14:55:00 17 /min [facility] Body height 2022-08-01 14:55:00 167.6 cm [facility] Body weight 2022-08-01 14:55:00 81.874 kg [facility] BMI 2022-08-01 14:55:00 29.13 kg/m2 [facility] Systolic blood pressure 2022-07-29 16:00:00 131 mm[Hg] [facility] Diastolic blood pressure 2022-07-29 16:00:00 77 mm[Hg] [facility] Respiratory rate 2022-07-29 15:56:00 18 /min [facility] Heart rate 2022-07-29 12:15:00 112 /min [facility] Oxygen saturation in Arterial blood by Pulse oximetry 2022-07-29 12:15:00 96 /min [facility] Body temperature 2022-07-29 10:00:00 36.89 Nabila [facility] Body height 2022-07-29 03:10:00 167.6 cm [facility] Body weight 2022-07-29 03:10:00 83.643 kg [facility] BMI 2022-07-29 03:10:00 29.76 kg/m2 [facility] Systolic blood pressure 2022-07-25 13:45:00 140 mm[Hg] [facility] Diastolic blood pressure 2022-07-25 13:45:00 97 mm[Hg] [facility] Heart rate 2022-07-25 12:15:00 92 /min [facility] Body temperature 2022-07-25 12:15:00 36.67 Nabila [facility] Respiratory rate 2022-07-25 12:15:00 18 /min [facility] Oxygen saturation in Arterial blood by Pulse oximetry 2022-07-25 12:15:00 100 /min [facility] Body height 2022-07-24 14:30:00 167.6 cm [facility] Systolic blood pressure 2022-07-23 18:30:00 130 mm[Hg] [facility] Diastolic blood pressure 2022-07-23 18:30:00 84 mm[Hg] [facility] Heart rate 2022-07-23 18:30:00 115 /min [facility] Body temperature 2022-07-23 18:30:00 36.94 Nabila [facility] Respiratory rate 2022-07-23 18:30:00 18 /min [facility] Oxygen saturation in Arterial blood by Pulse oximetry 2022-07-23 18:30:00 99 /min [facility] Body height 2022-07-21 15:36:00 167.6 cm [facility] Body weight 2022-07-21 15:36:00 89.359 kg Univ [facility] BMI 2022-07-21 15:36:00 31.80 kg/m2 [facility] Systolic blood pressure 2022-07-21 18:00:00 131 mm[Hg] [facility] Diastolic blood pressure 2022-07-21 18:00:00 84 mm[Hg] [facility] Heart rate 2022-07-21 18:00:00 104 /min [facility] Body temperature 2022-07-21 18:00:00 36.56 Nabila [facility] Respiratory rate 2022-07-21 18:00:00 18 /min [facility] Oxygen saturation in Arterial blood by Pulse oximetry 2022-07-21 18:00:00 100 /min [facility] Body height 2022-07-21 15:36:00 167.6 cm [facility] Body weight 2022-07-21 15:36:00 89.359 kg [facility] BMI 2022-07-21 15:36:00 31.80 kg/m2 [facility] Systolic blood pressure 2022-07-17 17:09:00 103 mm[Hg] [facility] Diastolic blood pressure 2022-07-17 17:09:00 51 mm[Hg] [facility] Heart rate 2022-07-17 17:09:00 82 /min [facility] Body temperature 2022-07-17 17:09:00 36.56 Nabila [facility] Respiratory rate 2022-07-17 17:09:00 16 /min [facility] Oxygen saturation in Arterial blood by Pulse oximetry 2022-07-17 17:09:00 99 /min [facility] Body height 2022-07-17 15:58:00 167.6 cm 5' 6" [facility] Body weight 2022-07-17 15:58:00 87.816 kg 193.6lb [facility] BMI 2022-07-17 15:58:00 31.25 kg/m2 [facility] Systolic blood pressure 2022-07-11 06:00:00 121 mm[Hg] [facility] Diastolic blood pressure 2022-07-11 06:00:00 68 mm[Hg] [facility] Heart rate 2022-07-11 06:00:00 100 /min [facility] Oxygen saturation in Arterial blood by Pulse oximetry 2022-07-11 06:00:00 99 /min [facility] Body temperature 2022-07-11 04:00:00 36.78 Nabila [facility] Respiratory rate 2022-07-11 04:00:00 18 /min [facility] Body height 2022-07-11 04:00:00 167.6 cm [facility] Body weight 2022-07-11 04:00:00 89.313 kg [facility] BMI 2022-07-11 04:00:00 31.78 kg/m2 [facility] Systolic blood pressure 2022-07-08 19:21:00 133 mm[Hg] [facility] Diastolic blood pressure 2022-07-08 19:21:00 79 mm[Hg] [facility] Heart rate 2022-07-08 19:21:00 94 /min [facility] 2022-07-08 19:21:00 36.22 Nabila [facility] Respiratory rate 2022-07-08 19:21:00 18 /min [facility] Body height 2022-07-08 19:21:00 167.6 cm [facility] Body weight 2022-07-08 19:21:00 86.909 kg [facility] BMI 2022-07-08 19:21:00 30.93 kg/m2 [facility] Heart rate 2022-07-06 09:15:00 96 /min [facility] Oxygen saturation in Arterial blood by Pulse oximetry 2022-07-06 09:15:00 99 /min [facility] Systolic blood pressure 2022-07-06 05:20:00 121 mm[Hg] [facility] Diastolic blood pressure 2022-07-06 05:20:00 70 mm[Hg] [facility] Body temperature 2022-07-06 05:20:00 37.06 Nabila [facility] Body height 2022-07-06 05:20:00 167.6 cm [facility] Body weight 2022-07-06 05:20:00 86.637 kg [facility] BMI 2022-07-06 05:20:00 30.83 kg/m2 [facility] Respiratory rate 2022-07-06 05:01:00 16 /min [facility] Systolic blood pressure 2022-06-23 19:46:00 135 mm[Hg] [facility] Diastolic blood pressure 2022-06-23 19:46:00 85 mm[Hg] [facility] Heart rate 2022-06-23 19:46:00 102 /min [facility] Body temperature 2022-06-23 19:46:00 36.11 Nabila [facility] Respiratory rate 2022-06-23 19:46:00 18 /min [facility] Body height 2022-06-23 19:46:00 167.6 cm [facility] Body weight 2022-06-23 19:46:00 85.004 kg [facility] BMI 2022-06-23 19:46:00 30.25 kg/m2 [facility] Systolic blood pressure 2022-06-09 18:04:00 110 mm[Hg] [facility] Diastolic blood pressure 2022-06-09 18:04:00 60 mm[Hg] [facility] Heart rate 2022-06-09 17:59:00 112 /min [facility] Body temperature 2022-06-09 17:57:00 36.28 Nabila [facility] Respiratory rate 2022-06-09 17:57:00 18 /min [facility] Body height 2022-06-09 17:57:00 170.2 cm [facility] weight 2022-06-09 17:57:00 85.911 kg [facility] BMI 2022-06-09 17:57:00 29.66 kg/m2 [facility] Body temperature 2022-06-02 15:34:00 36.72 Nabila [facility] Body weight 2022-06-02 15:34:00 85.73 kg [facility] 2022-06-02 15:34:00 30.51 kg/m2 [facility] Systolic blood pressure 2022-05-26 15:34:00 111 mm[Hg] [facility] Diastolic blood pressure 2022-05-26 15:34:00 71 mm[Hg] [facility] Heart rate 2022-05-26 15:34:00 87 /min [facility] Body temperature 2022-05-26 15:34:00 36.33 Nabila [facility] Respiratory rate 2022-05-26 15:34:00 18 /min [facility] Body height 2022-05-26 15:34:00 167.6 cm [facility] Body weight 2022-05-26 15:34:00 85.73 kg [facility] BMI 2022-05-26 15:34:00 30.51 kg/m2 [facility] Body temperature 2022-05-19 15:46:00 36.17 Nabila [facility] Body weight 2022-05-19 15:46:00 85.095 kg Univ [facility] BMI 2022-05-19 15:46:00 30.28 kg/m2 [facility] Systolic blood pressure 2022-05-12 20:15:00 122 mm[Hg] [facility] Diastolic blood pressure 2022-05-12 20:15:00 67 mm[Hg] [facility] Heart rate 2022-05-12 20:15:00 85 /min [facility] Body temperature 2022-05-12 20:15:00 35.83 Nabila [facility] Respiratory rate 2022-05-12 20:15:00 18 /min [facility] Body height 2022-05-12 20:15:00 167.6 cm [facility] Body weight 2022-05-12 20:15:00 83.961 kg [facility] BMI 2022-05-12 20:15:00 29.88 kg/m2 [facility] Body temperature 2022-05-05 16:37:00 36.56 Nabila [facility] Body weight 2022-05-05 16:37:00 83.553 kg [facility] Systolic blood pressure 2022-04-28 17:19:00 128 mm[Hg] [facility] Diastolic blood pressure 2022-04-28 17:19:00 73 mm[Hg] [facility] Heart rate 2022-04-28 17:19:00 87 /min [facility] Body temperature 2022-04-28 17:19:00 37.06 Nabila [facility] Respiratory rate 2022-04-28 17:19:00 18 /min [facility] Body weight 2022-04-28 17:19:00 82.736 kg [facility] Body temperature 2022-04-21 16:16:00 36.61 Nabila [facility] Body weight 2022-04-21 16:16:00 81.421 kg [facility] BMI 2022-04-21 16:16:00 28.97 kg/m2 [facility] Systolic blood pressure 2022-04-14 16:55:00 119 mm[Hg] [facility] Diastolic blood pressure 2022-04-14 16:55:00 72 mm[Hg] [facility] Heart rate 2022-04-14 16:55:00 75 /min [facility] Body temperature 2022-04-14 16:55:00 36.78 Nabila [facility] Respiratory rate 2022-04-14 16:55:00 16 /min [facility] Body height 2022-04-14 16:55:00 167.6 cm [facility] weight 2022-04-14 16:55:00 79.742 kg [facility] BMI 2022-04-14 16:55:00 28.37 kg/m2 Univ [facility] Systolic blood pressure 2022-04-07 19:07:00 122 mm[Hg] [facility] Diastolic blood pressure 2022-04-07 19:07:00 76 mm[Hg] [facility] Heart rate 2022-04-07 19:07:00 95 /min Unive [facility] Body temperature 2022-04-07 19:07:00 37.06 Nabila [facility] Respiratory rate 2022-04-07 19:07:00 20 /min [facility] Body weight 2022-04-07 19:07:00 78.835 kg Univ [facility] Systolic blood pressure 2022-03-31 15:59:00 118 mm[Hg] [facility] Diastolic blood pressure 2022-03-31 15:59:00 76 mm[Hg] [facility] Heart rate 2022-03-31 15:59:00 82 /min Unive [facility] Body temperature 2022-03-31 15:59:00 37.11 Nabila [facility] Respiratory rate 2022-03-31 15:59:00 18 /min [facility] Body height 2022-03-31 15:59:00 167.6 cm [facility] Body weight 2022-03-31 15:59:00 76.885 kg Univ [facility] BMI 2022-03-31 15:59:00 27.36 kg/m2 Univ [facility] Body temperature 2022-03-24 15:55:00 36.61 Nabila [facility] Respiratory rate 2022-03-24 15:55:00 18 /min [facility] Body weight 2022-03-24 15:55:00 75.796 kg Univ [facility] Systolic blood pressure 2022-03-10 17:15:00 116 mm[Hg] [facility] Diastolic blood pressure 2022-03-10 17:15:00 74 mm[Hg] [facility] Heart rate 2022-03-10 17:15:00 77 /min Un[facility] Body temperature 2022-03-10 17:15:00 36.94 Nabila [facility] Respiratory rate 2022-03-10 17:15:00 20 /min [facility] Body height 2022-03-10 17:15:00 167.6 cm Univ [facility] Body weight 2022-03-10 17:15:00 72.938 kg Univ [facility] BMI 2022-03-10 17:15:00 25.95 kg/m2 Univ [facility] Systolic blood pressure 2022-02-24 16:18:00 109 mm[Hg] [facility] Diastolic blood pressure 2022-02-24 16:18:00 68 mm[Hg] [facility] Heart rate 2022-02-24 16:18:00 83 /min Unive [facility] Body temperature 2022-02-24 16:18:00 36.44 Nabila [facility] Respiratory rate 2022-02-24 16:18:00 18 /min [facility] Body height 2022-02-24 16:18:00 167.6 cm Univ [facility] Body weight 2022-02-24 16:18:00 69.673 kg Univ [facility] BMI 2022-02-24 16:18:00 24.79 kg/m2 Univ [facility] Systolic blood pressure 2022-02-10 19:32:00 135 mm[Hg] [facility] Diastolic blood pressure 2022-02-10 19:32:00 90 mm[Hg] [facility] Heart rate 2022-02-10 19:32:00 130 /min Unive [facility] Body temperature 2022-02-10 19:32:00 36.89 Nabila [facility] Respiratory rate 2022-02-10 19:32:00 20 /min [facility] Body height 2022-02-10 19:32:00 167.6 cm Univ [facility] Body weight 2022-02-10 19:32:00 71.215 kg [facility] BMI 2022-02-10 19:32:00 25.34 kg/m2 [facility] Systolic blood pressure 2022-01-27 15:32:00 127 mm[Hg] [facility] Diastolic blood pressure 2022-01-27 15:32:00 77 mm[Hg] [facility] Heart rate 2022-01-27 15:32:00 99 /min Un[facility] Body temperature 2022-01-27 15:32:00 36.22 Nabila [facility] Respiratory rate 2022-01-27 15:32:00 20 /min [facility] Body height 2022-01-27 15:32:00 167.6 cm [facility] Body weight 2022-01-27 15:32:00 70.988 kg [facility] BMI 2022-01-27 15:32:00 25.26 kg/m2 [facility] Systolic blood pressure 2021-12-23 14:24:00 118 mm[Hg] [facility] Diastolic blood pressure 2021-12-23 14:24:00 77 mm[Hg] [facility] Heart rate 2021-12-23 14:24:00 87 /min Unive [facility] Body temperature 2021-12-23 14:24:00 37 Nabila [facility] Respiratory rate 2021-12-23 14:24:00 18 /min [facility] Body height 2021-12-23 14:24:00 167.6 cm [facility] Body weight 2021-12-23 14:24:00 70.761 kg [facility] BMI 2021-12-23 14:24:00 25.18 kg/m2 [facility] Systolic blood pressure 2021-12-09 14:24:00 118 mm[Hg] [facility] Diastolic blood pressure 2021-12-09 14:24:00 79 mm[Hg] [facility] Heart rate 2021-12-09 14:24:00 88 /min [facility] Body temperature 2021-12-09 14:24:00 36.67 Nabila [facility] Respiratory rate 2021-12-09 14:24:00 16 /min [facility] Body height 2021-12-09 14:24:00 167.6 cm [facility] Body weight 2021-12-09 14:24:00 72.53 kg [facility] BMI 2021-12-09 14:24:00 25.81 kg/m2 [facility] Oxygen saturation in Arterial blood by Pulse oximetry 2021-12-09 14:24:00 97 /min [facility] Systolic blood pressure 2021-10-12 18:17:00 124 mm[Hg] [facility] Diastolic blood pressure 2021-10-12 18:17:00 90 mm[Hg] [facility] Heart rate 2021-10-12 18:17:00 112 /min [facility] Body temperature 2021-10-12 18:17:00 37.11 Nabila [facility] Respiratory rate 2021-10-12 18:17:00 20 /min [facility] Body height 2021-10-12 18:17:00 167.6 cm [facility] Body weight 2021-10-12 18:17:00 68.04 kg [facility] BMI 2021-10-12 18:17:00 24.21 kg/m2 [facility] Procedures Procedure Date / Time Performed Performing Clinician Source PROTEIN CREAT RATIO URINE RANDOM 2022-07-29 05:00:00 Kasey Blanco [facility] CBC WITH DIFF 2022-07-25 10:37:00 Tony Blanco [facility] COMP. METABOLIC PANEL (55455) 2022-07-25 03:06:00 [facility] CBC WITH DIFF 2022-07-25 03:06:00 Tony Blanco [facility] PROTEIN CREAT RATIO URINE RANDOM 2022-07-25 03:06:00 [facility] CBC WITH DIFF 2022-07-22 08:27:00 Adum, Hetal Min [facility] CBC WITH DIFF 2022-07-22 08:27:00 Adum, Hetal Min [facility] SECTION 2022-07-21 18:36:00 Adum[facility] 2022-07-21 18:36:00 Adum, Hetal [facility] URINE DRUG (IMMUNOASSAY) - COMPREHENSIVE DRUG SCREEN W/O REFLEX 2022-07-21 18:12:00 Adum, Hetal Mario [facility] URINE DRUG (IMMUNOASSAY) - COMPREHENSIVE DRUG SCREEN W/O REFLEX 2022-07-21 18:12:00 Adum, Hetal Mario [facility] CBC WITH DIFF 2022-07-21 16:52:00 Adum, Hetal Min [facility] HEPATITIS B SURFACE ANTIGEN 2022-07-21 16:52:00 Adum, Hetal Mario [facility] HB ABO GROUPING 2022-07-21 16:52:00 Adum, Hetal Mario [facility] OR KATALINA ONLY - RPR 2022-07-21 16:52:00 Adum, Hetal Mario [facility] HIV 1/2 AG-AB WITH REFLEX 2022-07-21 16:52:00 Adum, Hetal Mario [facility] CBC WITH DIFF 2022-07-21 16:52:00 Adum, Hetal Sanchezjerri [facility] HEPATITIS B SURFACE ANTIGEN 2022-07-21 16:52:00 Adum, Hetal Mario [facility] HB ABO GROUPING 2022-07-21 16:52:00 Adum, Hetal Mario [facility] ADC OR KATALINA ONLY - RPR 2022-07-21 16:52:00 Adum, Hetal Mario [facility] HIV 1/2 AG-AB WITH REFLEX 2022-07-21 16:52:00 Adum, Hetal Mario [facility] RHO (D) IMMUNE GLOBULIN 2022-07-21 16:52:00 Kasey Aviles [facility] ADC ONLY - FERN TEST 2022-07-21 16:06:00 Adum, Hetal Mario [facility] ONLY - FERN TEST 2022-07-21 16:06:00 Adum, Hetal Mario [facility] CONSENT/REFUSAL FOR DIAGNOSIS AND TREATMENT 2022-07-21 15:31:39 Doctor Unassigned, Grannis [facility] CONSENT/REFUSAL FOR DIAGNOSIS AND TREATMENT 2022-07-21 15:31:39 Doctor Unassigned, Grannis [facility] URINALYSIS 2022-07-17 16:35:00 Adum, Hetal Mario [facility] ONLY - FERN TEST 2022-07-17 16:35:00 Adum, Hetal Mario [facility] URINALYSIS 2022-07-11 06:30:00 Austin Arzola [facility] OR [facility] ONLY - WET PREP 2022-07-11 06:30:00 Austin Arzola [facility] NOTICE OF PRIVACY PRACTICES 2022-07-11 03:43:30 Doctor Unassigned, Grannis [facility] CONSENT/REFUSAL FOR DIAGNOSIS AND TREATMENT 2022-07-11 03:43:01 Doctor Unassigned, Grannis [facility] ASSIGNMENT OF BENEFITS 2022-07-11 03:42:40 Docto r Unassigned, Grannis [facility] POCT URINALYSIS 2022-07-08 19:23:00 Antonette Luque [facility] L&D VISIT (NON-DELIVERED) 2022-07-06 05:01:00 Doctor Unassigned, Grannis [facility] ASSIGNMENT OF BENEFITS 2022-07-06 04:55:57 Docto r Unassigned, Grannis [facility] POCT URINALYSIS 2022-06-23 19:48:00 Antonette Luque [facility] POCT URINALYSIS 2022-06-09 18:04:00 Antonette Luque [facility] TDAP VACCINE, >11 YRS, IM 2022-05-26 15:59:59 Tushar Lan [facility] GLUCOSE 1 HOUR POST PRANDIAL 2022-05-12 21:16:00 Tushar Lan [facility] CBC WITH DIFF 2022-05-12 21:16:00 Tushar Lan [facility] POCT URINALYSIS 2022-05-12 20:18:00 Antonette Luque [facility] POCT URINALYSIS 2022-04-28 17:24:00 Antonette Luque [facility] SECOND AND THIRD TRIMESTER ULTRASOUND 2022-04-14 15:44:00 Antonette Luque [facility] POCT URINALYSIS 2022-03-31 16:02:00 Antonette Luque [facility] POCT URINALYSIS 2022-03-10 00:00:00 Antonette Luque [facility] POCT URINALYSIS 2022-02-24 16:30:00 Antonette Luque [facility] POCT URINALYSIS 2022-02-10 00:00:00 Antonette Luque [facility] POCT URINALYSIS 2022-01-27 15:33:00 Antonette Luque [facility] REPORT OF 2021-12-23 05:01:00 Doctor Mal scott, Grannis [facility] POCT TEST 2021-12-23 00:00:00 Yuly Luque [facility] POCT URINALYSIS W/O SPECIFIC GRAVITY 2021-12-23 00:00:00 Antonette Luque [facility] US FIRST TRIMESTER LESS THAN 14 WEEKS WITH TRANSVAGINAL 2021-12-14 21:24:20 Sara Snyder [facility] ASSIGNMENT OF BENEFITS 2021-12-14 19:54:43 Docto r Unassigned, Grannis [facility] POCT TEST 2021-12-09 00:00:00 Holden Snyder [facility] POCT TEST 2021-10-12 18:22:00 Omar Lan [facility] Encounters Start Date/Time End Date/Time Encounter Type Admission Type Attending [facility] Care Department Encounter ID Source 2022-07-24 07:39:17 Outpatient P VELEZ-ADAMARIS S, KASEY VELEZ-ADAMARIS S, KASEY [facility] [id number] [facility] 2022-07-11 03:19:31 Outpatient X [facility] [id number] [facility] 2020-12-27 22:10:58 Emergency [facility] [id number] [facility] 2020-12-27 22:10:57 Emergency [facility] [id number] [facility] 2020-12-27 19:19:43 Outpatient P [facility] [id number] [facility] 2020-12-27 19:19:36 Outpatient P [facility] [id number] [facility] 2022-12-08 14:45:00 2022-12-08 14:45:00 Outpatient R TUSHAR LAN [facility] [id number] [facility] 2022-09-07 15:15:00 2022-09-07 16:22:49 Outpatient R TUSHAR LAN [facility] [id number] [facility] 2022-08-29 00:00:00 2022-08-29 00:00:00 Telephone Tushar Lan [facility] APARTMENT LOCATOR [facility] ..840.114 350.1.13.10 4.2.7.2.[id number] [facility] 2022-08-29 00:00:00 2022-08-29 00:00:00 Telephone Tushar Lan [facility] APARTMENT LOCATOR [facility] ..840.114 350.1.13.10 4.2.7.2.[id number] [facility] 2022-08-12 10:00:00 2022-08-12 11:16:38 Outpatient R TUSHAR LAN [facility] [id number] [facility] 2022-08-12 10:00:00 2022-08-12 11:16:38 Routine Visit Tushar Lan [facility] APARTMENT LOCATOR [facility] 1.2.840.114 350.1.13.10 4.2.7.2.[id number] [facility] 2022-08-01 09:30:00 2022-08-01 10:21:06 Nurse Visit Visit, Ang-Rmchp Nurse Tushar Lan Ashely [facility] APARTMENT LOCATOR [facility] 1..840.114 350.1.13.10 4.2.7.2.[id number] [facility] 2022-08-01 09:30:00 2022-08-01 09:30:00 Outpatient R MALLYBERNYTUSHAR MEHTA [facility] [id number] [facility] 2022-08-01 00:00:00 2022-08-01 00:00:00 Patient Secure Msg Tushar Lan [facility] APARTMENT LOCATOR [facility] 1..840.114 350.1.13.10 4.2.7.2.[id number] [facility] 2022-08-01 00:00:00 2022-08-01 00:00:00 Patient Secure Msg Tushar Lan [facility] APARTMENT LOCATOR [facility] 1..840.114 350.1.13.10 4.2.7.2.[id number] [facility] 2022-07-28 20:06:00 2022-07-29 12:45:00 Outpatient HETAL FLETCHER [facility] [id number] [facility] 2022-07-28 20:06:00 2022-07-29 12:45:00 Hospital Encounter aKsey Young Vivian L [facility] 1.2.840.114 350.1.13.10 4.2.7.2.[id number] [facility] 2022-07-27 00:00:00 2022-07-27 00:00:00 Nurse Triage Patt Nova [facility] 1.2.840.114 350.1.13.10 4.2.7.2.[id number] [facility] 2022-07-26 00:00:00 2022-07-26 00:00:00 Telephone Tushar Lan [facility] APARTMENT LOCATOR [facility] 1.2.840.114 350.1.13.10 4.2.7.2.[id number] [facility] 2022-07-24 09:28:00 2022-07-25 12:30:00 Outpatient P VELEZ-ADAMARIS S, KASEY VELEZ-ADAMARIS S, KASEY [facility] PHYSIOTHERAPY PRACTICE MANAGER [id number] [facility] 2022-07-24 09:28:00 2022-07-25 12:30:00 Hospital Encounter Kelin-Adamaris s, Kasey [facility] 1.2.840.114 350.1.13.10 4.2.7.2.[id number] [facility] 2022-07-21 10:37:00 2022-07-23 13:45:00 Inpatient X JRHETAL [facility] [id number] [facility] 2022-07-21 10:37:00 2022-07-23 13:45:00 Hospital Encounter JrHetal [facility] 1.2.840.114 350.1.13.10 4.2.7.2.[id number] [facility] 2022-07-21 12:35:00 2022-07-21 14:27:00 Surgery AdHetal meneses [facility] 1.2840.114 350.1.13.10 4.2.7.2.[id number] [facility] 2022-07-21 10:45:00 2022-07-21 10:45:00 Outpatient R TUSHAR LAN [facility] [id number] [facility] 2022-07-19 00:00:00 2022-07-19 00:00:00 Case Management AdumHetal [facility]OPER [facility] PROFESSIO [facility] 1.2840.114 350.1.13.10 4.2.7.2.[id number] [facility] 2022-07-17 10:38:00 2022-07-17 12:40:00 Outpatient X ADRYNE [facility] [id number] [facility] 2022-07-17 10:38:00 2022-07-17 12:40:00 Emergency Adum, Hetal Mario [facility] 1.2840.114 350.1.13.10 4.2.7.2.[id number] [facility] 2022-07-10 22:46:00 2022-07-11 03:10:00 Outpatient X AUSTIN ARZOLA [facility] [id number] [facility] 2022-07-10 22:46:00 2022-07-11 03:10:00 Emergency Austin Arzola [facility] 1.2.840.114 350.1.13.10 4.2.7.2.[id number] [facility] 2022-07-11 00:00:00 2022-07-11 00:00:00 Telephone Tushar Lan [facility] APARTMENT LOCATOR [facility] 1.2.840.114 350.1.13.10 4.2.7.2.[id number] [facility] 2022-07-08 14:15:00 2022-07-08 14:41:47 Outpatient R TUSHAR LAN [facility] [id number] [facility] 2022-07-08 14:15:00 2022-07-08 14:41:47 Routine Visit Tushar Lan [facility] APARTMENT LOCATOR [facility] 1.2.840.114 350.1.13.10 4.2.7.2.[id number] [facility] 2022-07-06 00:06:00 2022-07-06 04:42:00 Outpatient P HETAL NORRIS [facility] [id number] [facility] 2022-07-06 00:06:00 2022-07-06 04:42:00 Emergency AdHetal meneses [facility] 1.2.840.114 350.1.13.10 4.2.7.2.[id number] [facility] 2022-07-06 00:00:00 2022-07-06 00:00:00 Orders Only Doctor Unassigned, Grannis [facility] 1.2.840.114 350.1.13.10 4.2.7.2.[id number] [facility] 2022-07-05 00:00:00 2022-07-05 00:00:00 Orders Only Doctor Unassigned, Grannis [facility] 1.2.840.114 350.1.13.10 4.2.7.2.[id number] [facility] 2022-06-23 14:45:00 2022-06-23 15:08:35 Outpatient R TUSHAR LAN [facility] [id number] [facility] 2022-06-23 14:45:00 2022-06-23 15:08:35 Routine Visit Tushar Lan [facility] APARTMENT LOCATOR [facility] 1.2.840.114 350.1.13.10 4.2.7.2.[id number] [facility] 2022-06-16 13:00:00 2022-06-16 13:00:00 Outpatient R TUSHAR LAN [facility] [id number] [facility] 2022-06-09 12:45:00 2022-06-09 13:24:30 Outpatient R TUSHAR LAN [facility] [id number] [facility] 2022-06-09 12:45:00 2022-06-09 13:24:30 Routine Visit Riky Tushar Ashely [facility] APARTMENT LOCATOR [facility] 1.2.840.114 350.1.13.10 4.2.7.2.[id number] [facility] 2022-06-02 10:30:00 2022-06-02 10:42:00 Nurse Visit Visit, Ang-Rmchp Nurse Riky Tushar Ashely [facility] APARTMENT LOCATOR [facility] 1.840.114 350.1.13.10 4.2.7.2.[id number] [facility] 2022-06-02 10:30:00 2022-06-02 10:30:00 Outpatient R MALLYBERNYJOHNATHAN TUSHAR [facility] [id number] [facility] 2022-05-26 10:30:00 2022-05-26 11:07:20 Outpatient R MALLYBERNYJOHNATHANTUSHAR [facility] [id number] [facility] 2022-05-26 10:30:00 2022-05-26 11:07:20 Routine Visit Tushar Lan [facility] APARTMENT LOCATOR [facility] 1.2840.114 350.1.13.10 4.2.7.2.[id number] [facility] 2022-05-19 10:30:00 2022-05-19 11:03:10 Nurse Visit Visit, WestRmchTushar Salazar [facility] APARTMENT LOCATOR [facility] 1.2.840.114 350.1.13.10 4.2.7.2.[id number] [facility] 2022-05-19 10:30:00 2022-05-19 10:30:00 Outpatient R TUSHAR LAN [facility] [id number] [facility] 2022-05-12 14:45:00 2022-05-12 15:46:52 Outpatient R TUSHAR LAN [facility] [id number] [facility] 2022-05-12 14:45:00 2022-05-12 15:46:52 Routine Visit Tushar Lan [facility] APARTMENT LOCATOR [facility] 1.2.840.114 350.1.13.10 4.2.7.2.[id number] [facility] 2022-05-05 10:30:00 2022-05-05 10:45:51 Nurse Visit Visit, Tk-RmchTushar Salazar [facility] 1.2.840.114 350.1.13.10 4.2.7.2.[id number] [facility] 2022-05-05 10:30:00 2022-05-05 10:30:00 Outpatient R TUSHAR LAN [facility] [id number] [facility] 2022-04-28 11:00:00 2022-04-28 11:44:12 Outpatient R TUSHAR LAN [facility] [id number] [facility] 2022-04-28 11:00:00 2022-04-28 11:44:12 Routine Visit Tushar Lan [facility] APARTMENT LOC[facility] [facility] 1.2.840.114 350.1.13.10 4.2.7.2.[id number] [facility] 2022-04-21 10:00:00 2022-04-21 10:30:36 Nurse Visit Visit, Antonette Ojeda [facility] APARTMENT LOCATOR [facility] CHILD [facility] 1.2.840.114 350.1.13.10 4.2.7.2.[id number] [facility] 2022-04-21 10:00:00 2022-04-21 10:00:00 Outpatient ANTONETTE KEENAN [facility] [id number] [facility] 2022-04-14 09:15:00 2022-04-14 11:39:36 Outpatient SHEREEN DASH [facility] [id number] [facility] 2022-04-14 09:15:00 2022-04-14 11:39:36 Routine Visit Risk, Neftali-N p/High [facility] APARTMENT LOCATOR [facility] CHILD [facility] 1.2840.114 350.1.13.10 4.2.7.2.[id number] [facility] 2022-04-14 10:30:00 2022-04-14 10:45:00 Nurse Visit Visit, Neftali Nurse Tushar Lan [facility] APARTMENT LOCATOR [facility] & CHILD [facility] 1.2.840.114 350.1.13.10 4.2.7.2.[id number] 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 & CHILD [facility] 1.2.840.114 350.1.13.10 4.2.7.2.[id number] [facility] 2022-04-14 10:30:00 2022-04-14 10:30:00 Outpatient TUSHAR COHN [facility] [id number] [facility] 2022-04-14 00:00:00 2022-04-14 00:00:00 Case Management Antonette Luque [facility] APARTMENT LOCATOR [facility] CHILD [facility] 1.0.114 350.1.13.10 4.2.7.2.[id number] [facility] 2022-04-07 13:00:00 2022-04-07 13:13:39 Nurse Visit Visit, Tushar Osei [facility] APARTMENT LOCATOR [facility] & CHILD [facility] 1.0.114 350.1.13.10 4.2.7.2.[id number] [facility] 2022-04-07 13:00:00 2022-04-07 13:00:00 Outpatient TUSHAR COHN [facility] [id number] [facility] 2022-04-07 00:00:00 2022-04-07 00:00:00 Telephone Tushar Lan [facility] APARTMENT LOCATOR [facility] & CHILD [facility] 1.0.114 350.1.13.10 4.2.7.2.[id number] [facility] 2022-03-31 09:45:00 2022-03-31 10:58:49 Routine Visit Risk, Neftali-N p/High Edwin Cage [facility] APARTMENT LOCATOR [facility] & CHILD [facility] 1.0.114 350.1.13.10 4.2.7.2.[id number] [facility] 2022-03-31 09:45:00 2022-03-31 10:58:49 Outpatient EDWIN BARNARD [facility] [id number] [facility] 2022-03-24 10:00:00 2022-03-24 10:00:00 Nurse Visit Visit, Neftali Nurse Tushar Lan [facility] APARTMENT LOCATOR [facility] & CHILD [facility] ..840.114 350.1.13.10 4.2.7.2.[id number] [facility] 2022-03-24 10:00:00 2022-03-24 09:55:01 Outpatient R TUSHAR LAN [facility] [id number] [facility] 2022-03-15 00:00:00 2022-03-15 00:00:00 Telephone Tushar Lan [facility] APARTMENT LOCATOR [facility] & CHILD [facility] ..840.114 350.1.13.10 4.2.7.2.[id number] [facility] 2022-03-10 11:00:00 2022-03-10 11:45:31 Outpatient R EDWIN CAGE [facility] [id number] [facility] 2022-03-10 11:00:00 2022-03-10 11:45:31 Routine Visit Risk, WestRmchp-N p/High Edwin Cage [facility] APARTMENT LOCATOR [facility] & CHILD [facility] 1..840.114 350.1.13.10 4.2.7.2.[id number] [facility] 2022-03-10 10:30:00 2022-03-10 10:30:00 Outpatient R [facility] [id number] [facility] 2022-03-07 00:00:00 2022-03-07 00:00:00 Telephone Tushar Lan [facility] ..840.114 350.1.13.10 4.2.7.2.[id number] [facility] 2022-03-07 00:00:00 2022-03-07 00:00:00 Case Management Edwin Cage [facility] APARTMENT LOCATOR [facility] & CHILD [facility] 1..840.114 350.1.13.10 4.2.7.2.[id number] [facility] 2022-02-24 10:00:00 2022-02-24 11:04:18 Outpatient EDWIN BARNARD [facility] [id number] [facility] 2022-02-24 10:00:00 2022-02-24 11:04:18 Routine Visit Risk, Ang-Rmchp-N p/High Edwin Cage [facility] APARTMENT LOCATOR [facility] & CHILD [facility] 1..840.114 350.1.13.10 4.2.7.2.[id number] [facility] 2022-02-10 13:15:00 2022-02-10 13:59:26 Outpatient R EDWIN CAGE [facility] [id number] [facility] 2022-02-10 13:15:00 2022-02-10 13:59:26 Routine Visit Risk, Ang-Rmchp-N p/High Edwin Cage [facility] APARTMENT LOCATOR [facility] & CHILD [facility] 1.2.840.114 350.1.13.10 4.2.7.2.[id number] [facility] 2022-01-27 09:00:00 2022-01-27 10:00:53 Outpatient EDWIN BARNARD [facility] [id number] [facility] 2022-01-27 09:00:00 2022-01-27 10:00:53 Routine Visit Risk, Ang-Rmchp-N p/High Edwin Cage [facility] APARTMENT LOCATOR [facility] & CHILD [facility] 1.840.114 350.1.13.10 4.2.7.2.[id number] [facility] 2022-01-10 00:00:00 2022-01-10 00:00:00 Case Management Antonette Luque [facility] 1.0.114 350.1.13.10 4.2.7.2.[id number] [facility] 2022-01-06 15:15:00 2022-01-06 15:45:00 Operations Welder Visit Ultrasound, David Olivarez [facility] APARTMENT LOCATOR [facility] & CHILD [facility] 1.840.114 350.1.13.10 4.2.7.2.[id number] [facility] 2022-01-06 15:15:00 2022-01-06 15:15:00 Outpatient DAVID OCHOA [facility] [id number] [facility] 2021-12-30 10:00:00 2021-12-30 10:00:00 Outpatient SARA TROY CHERYAL [facility] [id number] [facility] 2021-12-23 09:15:00 2021-12-23 10:41:00 Outpatient ANTONETTE KEENAN [facility] [id number] [facility] 2021-12-23 09:15:00 2021-12-23 10:41:00 Initial Visit Provider, Niki Mayfield Brenda A [facility] 1.284.114 350.1.13.10 4.2.7.2.[id number] [facility] 2021-12-23 00:00:00 2021-12-23 00:00:00 Orders Only Doctor Unassigned, Grannis [facility] 1.2.840.114 350.1.13.10 4.2.7.2.[id number] [facility] 2021-12-17 00:00:00 2021-12-17 00:00:00 Case Management Sara Snyder [facility] 1.2.840.114 350.1.13.10 4.2.7.2.[id number] [facility] 2021-12-14 14:55:04 2021-12-14 23:59:00 Outpatient R SARA SNYDER [facility] [id number] [facility] 2021-12-14 14:55:04 2021-12-14 23:59:00 Hospital Encounter Sara Snyder [facility] 1.2.840.114 350.1.13.10 4.2.7.2.[id number] [facility] 2021-12-14 00:00:00 2021-12-14 00:00:00 Orders Only Doctor Unassigned, Grannis [facility] 1.2.840.114 350.1.13.10 4.2.7.2.[id number] [facility] 2021-12-09 09:00:00 2021-12-09 09:43:20 Outpatient R SARA SNYDER CHERYAL [facility] [id number] [facility] 2021-12-09 09:00:00 2021-12-09 09:43:20 Initial Visit Sara Snyder [facility] 1.2.840.114 350.1.13.10 4.2.7.2.[id number] [facility] 2021-10-12 13:00:00 2021-10-12 13:34:47 Office Visit Tushar Lan [facility] APARTMENT LOCATOR [facility] CHILD [facility] 1..840.114 350.1.13.10 4.2.7.2.[id number] [facility] 2021-10-12 13:00:00 2021-10-12 13:34:47 Outpatient R TUSHAR LAN [facility] [id number] [facility] 2021-10-12 13:00:00 2021-10-12 13:00:00 Outpatient R TUSHAR LAN [facility] [id number] [facility] 2021-10-12 13:00:00 2021-10-12 13:00:00 Outpatient R TUSHAR LAN [facility] [id number] [facility] 2021-10-12 00:00:00 2021-10-12 00:00:00 Orders Only Doctor Unassigned, Grannis [facility] 1..840.114 350.1.13.10 4.2.7.2.[id number] [facility] 2021-09-28 12:45:00 2021-09-28 14:31:13 Outpatient R TUSHAR LAN [facility] [id number] [facility] 2021-09-28 12:45:00 2021-09-28 14:31:13 Office Visit Tushar Lan [facility] APARTMENT LOCATOR [facility] CH[facility] 1..840.114 350.1.13.10 4.2.7.2.[id number] [facility] 2021-08-05 16:15:00 2021-08-05 16:15:00 Outpatient JAM DESIR [facility] [id number] [facility] 2021-06-18 11:00:00 2021-06-18 11:00:00 Outpatient CLINTON CEDILLO [facility] [id number] [facility] 2021-06-15 00:00:00 2021-06-15 00:00:00 Orders Only Doctor Unassigned, Grannis [facility] 1.2840.114 350.1.13.10 4.2.7.2.[id number] [facility] 2021-06-15 00:00:00 2021-06-15 00:00:00 Patient Secure Msg Doctor Unassigned, Grannis [facility] 1.20.114 350.1.13.10 4.2.7.2.[id number] [facility] 2021-03-09 14:00:00 2021-03-09 14:00:00 Outpatient R TUSHAR LAN [facility] [id number] [facility] 2021-03-02 00:00:00 2021-03-02 00:00:00 Telephone Tushar Lan [facility] APARTMENT LOCATOR [facility] CH[facility] 1.2840.114 350.1.13.10 4.2.7.2.[id number] [facility] 2021-02-12 00:00:00 2021-02-12 00:00:00 Ernesto Hoffman [facility] APARTMENT LOCATOR [facility] CH[facility] 1.2840.114 350.1.13.10 4.2.7.2.[id number] [facility] 2021-02-11 00:00:00 2021-02-11 00:00:00 Tushar Galaviz [facility] APARTMENT LOCATOR [facility] 1.2.840.114 350.1.13.10 4.2.7.2.[id number] [facility] 2021-01-27 00:00:00 2021-01-27 00:00:00 Ernesto Hoffman [facility] APARTMENT LOCATOR [facility] 1.2.840.114 350.1.13.10 4.2.7.2.[id number] [facility] 2021-01-18 16:00:00 2021-01-18 16:18:34 Outpatient ERNESTO STARKS [facility] [id number] [facility] 2021-01-18 15:59:18 2021-01-18 16:18:34 Office Visit Ernesto Peacock [facility] APARTMENT LOCATOR [facility] 1..840.114 350.1.13.10 4.2.7.2.[id number] [facility] 2021-01-18 16:00:00 2021-01-18 16:00:00 Outpatient ERNESTO STARKS [facility] [id number] [facility] 2021-01-15 13:15:00 2021-01-15 13:15:00 Outpatient ERNESTO STARKS [facility] [id number] [facility] 2020-12-11 00:00:00 2020-12-11 00:00:00 Telephone Tushar Lan [facility] APARTMENT LOCATOR [facility] CH[facility] 1..840.114 350.1.13.10 4.2.7.2.[id number] [facility] 2020-10-20 13:30:06 2020-10-20 14:12:47 Office Visit Niki Ralph [facility] APARTMENT LOCATOR [facility] 1..840.114 350.1.13.10 4.2.7.2.[id number] [facility] 2020-10-20 13:30:00 2020-10-20 13:30:00 Outpatient NIKI SHIN [facility] [id number] [facility] 2020-10-14 15:00:00 2020-10-14 15:00:00 Outpatient R TUSHAR LAN [facility] [id number] [facility] 2020-10-12 14:17:44 2020-10-12 15:03:31 Office Visit Tushar Lan [facility] APARTMENT LOCATOR [facility] CH[facility] 1.2.840.114 350.1.13.10 4.2.7.2.[id number] [facility] 2020-10-12 14:30:00 2020-10-12 14:30:00 Outpatient R TUSHAR LAN [facility] [id number] [facility] 2020-09-28 08:30:00 2020-09-28 08:30:00 Outpatient R TUSHAR LAN [facility] [id number] [facility] 2020-09-28 00:00:00 2020-09-28 00:00:00 Telephone Ernesto Peacock [facility] APARTMENT LOCATOR [facility] 1.2.840.114 350.1.13.10 4.2.7.2.[id number] [facility] 2020-09-25 00:00:00 2020-09-25 00:00:00 Telephone Tushar Lan [facility] APARTMENT LOCATOR [facility] 1.2.840.114 350.1.13.10 4.2.7.2.[id number] [facility] 2020-09-24 14:14:05 2020-09-24 14:29:05 Office Visit Tushar Lan [facility] APARTMENT LOCATOR [facility] 1.2.840.114 350.1.13.10 4.2.7.2.[id number] [facility] 2020-09-24 14:15:00 2020-09-24 14:15:00 Outpatient R TUSHAR LAN [facility] [id number] [facility] 2020-09-08 16:00:00 2020-09-08 16:00:00 Outpatient R ERNESTO PEACOCK [facility] [id number] [facility] 2020-08-18 13:04:51 2020-08-18 13:45:53 Routine Visit Tushar Lan [facility] APARTMENT LOCATOR [facility] 1..840.114 350.1.13.10 4.2.7.2.[id number] [facility] 2020-08-18 13:15:00 2020-08-18 13:15:00 Outpatient R TUSHAR LAN [facility] [id number] [facility] 2020-08-06 11:00:00 2020-08-06 11:00:00 Outpatient R ERNESTO PEACOCK [facility] [id number] [facility] 2020-08-06 08:21:04 2020-08-06 09:08:19 Nurse Visit Visit, Ang-Rmchp Nurse Tushar Lan [facility] 1..840.114 350.1.13.10 4.2.7.2.[id number] [facility] 2020-08-06 09:00:00 2020-08-06 09:00:00 Outpatient R TUSHAR LAN [facility] [id number] [facility] 2020-08-04 00:00:00 2020-08-04 00:00:00 Telephone Ernesto Peacock [facility] 1..840.114 350.1.13.10 4.2.7.2.[id number] [facility] 2020-08-01 00:00:00 2020-08-01 00:00:00 Encounter 1.2.840.1 [id number] 3.104.2.7 .[id number] 1.2.840.114 350.1.13.10 [address].2.7.2.[id number] [facility] 2020-07-26 14:30:00 2020-07-28 17:45:00 Hospital Encounter Rosio Breen Vien Cam [facility] 1.2.840.114 350.1.13.10 4.2.7.2.[id number] [facility] 2020-07-27 10:49:00 2020-07-27 16:19:00 Anesthesia Event Dylan Prieto [facility] 1.2.840.114 350.1.13.10 4.2.7.2.[id number] [facility] 2020-07-26 19:50:09 2020-07-26 19:50:09 Anesthesia Event Maria Angelica [facility] 1.2.840.114 350.1.13.10 4.2.7.2.[id number] [facility] 2020-07-21 12:46:13 2020-07-21 13:17:55 Routine Visit Ernesto Peacock [facility] APARTMENT LOCATOR [facility] 1.2.840.114 350.1.13.10 4.2.7.2.[id number] [facility] 2020-07-21 12:45:00 2020-07-21 12:45:00 Outpatient ERNESTO STARKS [facility] [id number] [facility] 2020-07-12 02:00:00 2020-07-12 03:20:00 Hospital Encounter Hetal Norris [facility] 1.2.840.114 350.1.13.10 4.2.7.2.[id number] [facility] 2020-07-07 10:39:36 2020-07-07 11:15:55 Routine Visit Ernesto Peacock [facility] APARTMENT LOCATOR [facility] 1.2.114 350.1.13.10 4.2.7.2.[id number] [facility] 2020-07-07 10:45:00 2020-07-07 10:45:00 Outpatient ERNESTO STARKS [facility] [id number] [facility] 2020-06-26 00:00:00 2020-06-26 00:00:00 Telephone Tushar Lan [facility] APARTMENT LOCATOR [facility] 1..114 350.1.13.10 4.2.7.2.[id number] [facility] 2020-06-26 00:00:00 2020-06-26 00:00:00 Patient Secure Msg Ernesto Peacock [facility] APARTMENT LOCATOR [facility] 1..114 350.1.13.10 4.2.7.2.[id number] [facility] 2020-06-23 14:10:30 2020-06-23 14:38:56 Routine Visit Ernesto Peacock [facility] APARTMENT LOCATOR [facility] 1..114 350.1.13.10 4.2.7.2.[id number] [facility] 2020-06-23 14:15:00 2020-06-23 14:15:00 Outpatient R ERNESTO PEACOCK [facility] [id number] [facility] 2020-06-11 00:00:00 2020-06-11 00:00:00 Orders Only Doctor Unassigned, Grannis [facility] 1..114 350.1.13.10 4.2.7.2.[id number] [facility] 2020-06-09 14:16:51 2020-06-09 14:55:17 Routine Visit Niki Ralph Emily N [facility] APARTMENT LOCATOR [facility] 1.840.114 350.1.13.10 4.2.7.2.[id number] [facility] 2020-06-09 14:15:00 2020-06-09 14:15:00 Outpatient R ERNESTO PEACOCK [facility] [id number] [facility] 2020-06-02 00:00:00 2020-06-02 00:00:00 Orders Only Doctor Unassigned, Grannis [facility] 1.84.114 350.1.13.10 4.2.7.2.[id number] [facility] 2020-06-01 00:00:00 2020-06-01 00:00:00 Refill Tushar Lan [facility] APARTMENT LOCATOR [facility] 1.840.114 350.1.13.10 4.2.7.2.[id number] [facility] 2020-05-21 12:58:26 2020-05-21 13:13:26 Operations Welder Visit Lab, Ang-Rmchp Tushar Lan [facility] APARTMENT LOCATOR [facility] CH[facility] 1.84.114 350.1.13.10 4.2.7.2.[id number] [facility] 2020-05-21 13:00:00 2020-05-21 13:00:00 Outpatient TUSHAR COHN [facility] [id number] [facility] 2020-05-19 12:45:26 2020-05-19 13:11:32 Routine Visit Ernesto Peacock [facility] 1..114 350.1.13.10 4.2.7.2.[id number] [facility] 2020-05-19 12:45:00 2020-05-19 12:45:00 Outpatient ERNESTO STARKS [facility] [id number] [facility] 2020-05-19 00:00:00 2020-05-19 00:00:00 Patient Outreach Jeffery Dumont [facility] 1..840.114 350.1.13.10 4.2.7.2.[id number] [facility] 2020-04-23 15:54:18 2020-04-23 16:11:16 Routine Visit Ernesto Peacock [facility] APARTMENT LOCATOR [facility] 1..840.114 350.1.13.10 4.2.7.2.[id number] [facility] 2020-04-23 16:00:00 2020-04-23 16:00:00 Outpatient ERNESTO STARKS [facility] [id number] [facility] 2020-04-14 12:45:00 2020-04-14 12:45:00 Outpatient ERNESTO STARKS [facility] [id number] [facility] 2020-04-09 13:55:54 2020-04-09 14:54:41 Operations Welder Visit Ultrasound, Radha Alvarado [facility] APARTMENT LOCATOR [facility] ..840.114 350.1.13.10 4.2.7.2.[id number] [facility] 2020-04-09 14:00:00 2020-04-09 14:00:00 Outpatient P [facility] [id number] [facility] 2020-04-07 00:00:00 2020-04-07 00:00:00 Telephone Ernesto Peacock [facility] APARTMENT LOCATOR [facility] 1..114 350.1.13.10 4.2.7.2.[id number] [facility] 2020-03-26 00:00:00 2020-03-26 00:00:00 Orders Only Doctor Unassigned, Grannis [facility] 1..114 350.1.13.10 4.2.7.2.[id number] [facility] 2020-03-17 12:49:30 2020-03-17 13:34:04 Routine Visit Ernesto Peacock [facility] APARTMENT LOCATOR [facility] 1.84.114 350.1.13.10 4.2.7.2.[id number] [facility] 2020-03-17 13:00:00 2020-03-17 13:00:00 Outpatient R [facility] [facility] [id number] [facility] 2020-02-25 00:00:00 2020-02-25 00:00:00 Telephone Ernesto Peacock [facility] APARTMENT LOCATOR [facility] & CHILD [facility] 1.840.114 350.1.13.10 4.2.7.2.[id number] [facility] 2020-02-18 14:45:00 2020-02-18 14:45:00 Outpatient R ERNESTO PEACOCK [facility] [id number] [facility] 2020-02-18 14:09:04 2020-02-18 14:39:35 Routine Visit Ernesto Peacock [facility] APARTMENT LOCATOR [facility] 1.840.114 350.1.13.10 4.2.7.2.[id number] [facility] 2020-02-03 00:00:00 2020-02-03 00:00:00 Telephone Tushar Lan [facility] APARTMENT LOCATOR [facility]ILD [facility] 1.2840.114 350.1.13.10 4.2.7.2.[id number] [facility] 2020-02-03 00:00:00 2020-02-03 00:00:00 Refill Doctor Unassigned, Grannis [facility] APARTMENT LOCATOR [facility] & CHILD [facility] 1.2840.114 350.1.13.10 4.2.7.2.[id number] [facility] 2020-01-21 15:20:02 2020-01-21 16:02:58 Routine Visit Ernesto Peacock [facility] APARTMENT LOCATOR [facility] & CHILD [facility] 1.840.114 350.1.13.10 4.2.7.2.[id number] [facility] 2020-01-21 15:30:00 2020-01-21 15:30:00 Outpatient R ERNESTO PEACOCK [facility] [id number] [facility] 2020-01-18 00:00:00 2020-01-18 00:00:00 Refill Doctor Unassigned, Grannis [facility] APARTMENT LOCATOR [facility] & CHILD [facility] 1.840.114 350.1.13.10 4.2.7.2.[id number] [facility] 2020-01-09 14:52:31 2020-01-09 15:17:04 Operations Welder Visit Ultrasound, Shereen Sheridan [facility] APARTMENT LOCATOR [facility] & CHILD [facility] 1.84.114 350.1.13.10 4.2.7.2.[id number] [facility] 2020-01-09 14:45:00 2020-01-09 14:45:00 Outpatient P [facility] [id number] [facility] 2020-01-09 00:00:00 2020-01-09 00:00:00 Abstract Ernesto Peacock [facility] APARTMENT LOCATOR [facility] & CHILD [facility] 1.2.840.114 350.1.13.10 4.2.7.2.[id number] [facility] 2019-12-27 00:00:00 2019-12-27 00:00:00 Telephone Tushar Lan [facility] APARTMENT LOCATOR [facility] & CHILD [facility] 1.2.840.114 350.1.13.10 4.2.7.2.[id number] [facility] 2019-12-26 13:39:00 2019-12-26 15:06:17 Initial Visit Ernesto Peacock [facility] APARTMENT LOCATOR [facility]ILD [facility] 1.2.840.114 350.1.13.10 4.2.7.2.[id number] [facility] 2019-12-26 13:45:00 2019-12-26 13:45:00 Outpatient R ERNESTO PEACOCK [facility] [id number] [facility] 2019-12-26 00:00:00 2019-12-26 00:00:00 Orders Only Doctor Unassigned, Grannis [facility] 1.2840.114 350.1.13.10 4.2.7.2.[id number] [facility] 2019-12-09 13:15:00 2019-12-09 13:15:00 Outpatient R TUSHAR LAN [facility] [id number] [facility] 2019-10-28 00:00:00 2019-10-28 00:00:00 Telephone Tushar Lan [facility] APARTMENT LOCATOR [facility] CHILD [facility] 1.2.840.114 350.1.13.10 4.2.7.2.686 [id number] 2019-10-28 00:00:00 2019-10-28 00:00:00 Telephone Tushar Lan [facility] APARTMENT LOCATOR [facility]ILD [facility] 1.2.840.114 350.1.13.10 4.2.7.2.[id number] [facility] 2019-10-09 08:16:20 2019-10-09 08:48:41 Office Visit OliverjohnathanTushar Ashely [facility] APARTMENT LOCATOR [facility]ILD [facility] 1.2.840.114 350.1.13.10 4.2.7.2.[id number] [facility] 2019-10-09 08:16:20 2019-10-09 08:48:41 Office Visit RikyTushar Ashely [facility] APARTMENT LOCATOR [facility] CHILD [facility] 1.2.840.114 350.1.13.10 4.2.7.2.686 [id number] 107 [id number] 2019-10-09 08:15:00 2019-10-09 08:15:00 Outpatient R TUSHAR LAN [facility] [id number] [facility] 2019-10-07 10:30:00 2019-10-07 10:30:00 Outpatient R TUSHAR LAN [facility] [id number] [facility] 2019-09-27 00:00:00 2019-09-27 00:00:00 Telephone MallybernyjohnathanTushar Ashely [facility] APARTMENT LOCATOR [facility]ILD [facility] 1.2.840.114 350.1.13.10 4.2.7.2.[id number] [facility] 2019-09-25 00:00:00 2019-09-25 00:00:00 Refill MallybernyjohnathanTushar Ashely [facility] APARTMENT LOCATOR [facility]ILD [facility] 1.2.840.114 350.1.13.10 4.2.7.2.[id number] [facility] 2019-08-19 00:00:00 2019-08-19 00:00:00 Telephone Riky Tushar C [facility] APARTMENT LOCATOR [facility] CHILD [facility] 1.2.840.114 350.1.13.10 4.2.7.2.[id number] [facility] 2019-08-16 00:00:00 2019-08-16 00:00:00 Case Management Selam Alves [facility] APARTMENT LOCATOR [facility]ILD [facility] 1.840.114 350.1.13.10 4.2.7.2.[id number] [facility] 2019-08-15 10:43:37 2019-08-15 11:14:30 Office Visit Provider, Tk-Rmchp Selam Oquendo [facility] APARTMENT LOCATOR [facility] CHILD [facility] 1..114 350.1.13.10 4.2.7.2.[id number] [facility] 2019-08-15 10:45:00 2019-08-15 10:45:00 Outpatient R SELAM ALVES [facility] [id number] [facility] 2019-07-23 00:00:00 2019-07-23 00:00:00 Telephone Tushar Lan [facility] CHILD [facility] ..114 350.1.13.10 4.2.7.2.[id number] [facility] 2019-07-19 00:00:00 2019-07-19 00:00:00 Orders Only Doctor Unassigned, Grannis [facility] ..114 350.1.13.10 4.2.7.2.[id number] [facility] 2019-07-08 07:39:54 2019-07-08 09:35:12 Telemedici ne Visit Tushar Lan [facility] APARTMENT LOCATOR [facility] CHILD [facility] 1.840.114 350.1.13.10 4.2.7.2.[id number] [facility] 2019-07-08 09:30:00 2019-07-08 09:30:00 Outpatient R TUSHAR LAN [facility] [id number] [facility] 2019-07-05 00:00:00 2019-07-05 00:00:00 Telephone Riky Tushar Lund [facility] APARTMENT LOCATOR [facility]ILD [facility] 1.2.840.114 350.1.13.10 4.2.7.2.[id number] [facility] 2019-04-29 00:00:00 2019-04-29 00:00:00 Telephone Riky Tushar Lund [facility] APARTMENT LOCATOR [facility] 1.2.840.114 350.1.13.10 4.2.7.2.[id number] [facility] 2019-04-01 00:00:00 2019-04-01 00:00:00 Telephone Mallybernyjohnathan Tushar Lund [facility] APARTMENT LOCATOR [facility] CHILD [facility] 1.2.840.114 350.1.13.10 4.2.7.2.[id number] [facility] 2019 10:39:31 2019 11:16:49 Office Visit Tushar Lan [facility] APARTMENT LOCATOR [facility] CHILD [facility] 1.2.840.114 350.1.13.10 4.2.7.2.[id number] [facility] 2019 00:00:00 2019 00:00:00 Orders Only Doctor Unassigned, Grannis [facility] 1.2.840.114 350.1.13.10 4.2.7.2.[id number] [facility] 2018-12-20 09:37:41 2018-12-20 10:39:11 Office Visit Tushar Lan 1.2.840.1 80350.1.1 3.104.2.7 [id number] [facility] 2018-12-20 00:00:00 2018-12-20 00:00:00 Telephone Tushar Lan 1.2.840.1 [id number] 3.104.2.7 [id number] [facility] 2018-12-20 00:00:00 2018-12-20 00:00:00 Orders Only Doctor Unassigned, Grannis 1.2.840.1 59211.1.1 3.104.2.7 [id number] [facility] Results Test Description Test Time Test Comments Results Result Co mments Source [facility] PAN[facility] (00100)2022-07-25 03:39:13* Test Item Value Reference Range Interpretation Comme nts NA (test code = 8231744733) 138 mmol/L 135-145 K (test code = 9799944327) 3.1 mmol/L 3.5-5.0 L CL (test code = 6381076743) 109 mmol/L 98-108 H CO2 TOTAL (test code = 4838181017) 21 mmol/L 23-31 L AGAP (test code = 2472396194) 8 2-16 BUN (test code = 7526697597) 12 mg/dL 7-23 GLUCOSE (test code = 8098492668) 100 mg/dL 70-110 CREATININE (test code = 1529627529) 0.44 mg/dL 0.50-1.04 L TOTAL BILI (test code = 7599817206) 1.1 mg/dL 0.1-1.1 CALCIUM (test code = 9876163386) 8.1 mg/dL 8.6-10.6 L T PROTEIN (test code = 1018888419) 6.1 g/dL 6.3-8.2 L ALBUMIN (test code = 7244367975) 2.9 g/dL 3.5-5.0 L ALK PHOS (test code = 2212474327) 101 U/L 34-122 ALTv (test code = 1742-6) 11 U/L 5-35 AST(SGOT) (test code = 9913573724) 19 U/L 13-40 eGFR (test code = 0784325630) 182.3 mL/min/1.73m2 ARGENIS (test code = ARGENIS) Association of [...] or abnormalities in imaging tests). Lab Interpretation (test code = 66254-5) Abnormal [facility] WITH [id number] 03:29:32* Test Item Value Reference Range Interpretation Comme nts WBC (test code = 6690-2) 9.87 See_Comment [Automated [employer]] The system which generated this result transmitted reference range: 4.30 - 11.10 10*3/?L. The reference range was not used to interpret this result as normal/abnormal. RBC (test code = 789-8) 3.57 See_Comment L [Automated [employer]] The system which generated this result transmitted reference range: 3.93 - 5.25 10*6/?L. The reference range was not used to interpret this result as normal/abnormal. HGB (test code = 718-7) 8.1 g/dL 11.6-15.0 L HCT (test code = 4544-3) 25.5 % 35.7-45.2 L MCV (test code = 787-2) 71.4 fL 80.6-95.5 L MCH (test code = 785-6) 22.7 pg 25.9-32.8 L MCHC (test code = 786-4) 31.8 g/dL 31.6-35.1 RDW-SD (test code = 88190-5) 38.3 fL 39.0-49.9 L RDW-CV (test code = 788-0) 15.1 % 12.0-15.5 PLT (test code = 777-3) 279 See_Comment [Automated [employer]] The system which generated this result transmitted reference range: 166 - 358 10*3/?L. The reference range was not used to interpret this result as normal/abnormal. MPV (test code = 71619-0) 10.3 fL 9.5-12.9 NRBC/100 WBC (test code = 8442553826) 0.0 See_Comment [Automated [employer] ssage] The system which generated this result transmitted reference range: 0.0 - 10.0 /100 WBCs. The reference range was not used to interpret this result as normal/abnormal. NRBC x10^3 (test code = 5780116257) See_Comment [Automated [employer]] The system which generated this result transmitted reference range: 10*3/?L. The reference range was not used to interpret this result as normal/abnormal. GRAN MAT (NEUT) % (test code = 770-8) 80.7 % IMM GRAN % (test code = 6719995900) 0.70 % LYMPH % (test code = 736-9) 11.3 % MONO % (test code = 5905-5) 4.9 % EOS % (test code = 713-8) 2.2 % BASO % (test code = 706-2) 0.2 % GRAN MAT x10^3(ANC) (test code = 5332821881) 7.96 10*3/uL 1.88-7.09 H IMM GRAN x10^3 (test code = 5160946540) 0.07 10*3/uL 0.00-0.06 H LYMPH x10^3 (test code = 731-0) 1.12 10*3/uL 1.32-3.29 L MONO x10^3 (test code = 742-7) 0.48 10*3/uL 0.33-0.92 EOS x10^3 (test code = 711-2) 0.22 10*3/uL 0.03-0.39 BASO x10^3 (test code = 704-7) 0.01-0.07 Lab Interpretation (test code = 26862-3) Abnormal [facility] ([facility]) IMMUNE [id number] 00:24:07* Test Item Value Reference Range Interpretation Comme nts RHIG CANDIDATE? (test code = 5188) No- see comment Patient is not a candidate for RhIg- Patient is Rh Positive.Performed at [facility] Laboratory Services - [facility] Blood [address] [place] [id number] Free: [phone] No. [id number] [facility] with [id number] 11:22:51* Test Item Value Reference Range Interpretation Comme nts WBC (test code = 6690-2) 21.75 See_Comment H [Automated message] The system which generated this result transmitted reference range: 4.30 - 11.10 10*3/?L. The reference range was not used to interpret this result as normal/abnormal. RBC (test code = 789-8) 3.93 See_Comment [Automated message] The system which generated this result transmitted reference range: 3.93 - 5.25 10*6/?L. The reference range was not used to interpret this result as normal/abnormal. HGB (test code = 718-7) 8.9 g/dL 11.6-15.0 L HCT (test code = 4544-3) 28.3 % 35.7-45.2 L MCV (test code = 787-2) 72.0 fL 80.6-95.5 L MCH (test code = 785-6) 22.6 pg 25.9-32.8 L MCHC (test code = 786-4) 31.4 g/dL 31.6-35.1 L RDW-SD (test code = 93516-7) 37.8 fL 39.0-49.9 L RDW-CV (test code = 788-0) 14.6 % 12.0-15.5 PLT (test code = 777-3) 216 See_Comment [Automated message] The system which generated this result transmitted reference range: 166 - 358 10*3/?L. The reference range was not used to interpret this result as normal/abnormal. MPV (test code = 96189-3) 10.8 fL 9.5-12.9 NRBC/100 WBC (test code = 7784070424) 0.0 See_Comment [Automated message] The system which generated this result transmitted reference range: 0.0 - 10.0 /100 WBCs. The reference range was not used to interpret this result as normal/abnormal. NRBC x10^3 (test code = 0431554122) See_Comment [Automated message] The system which generated this result transmitted reference range: 10*3/?L. The reference range was not used to interpret this result as normal/abnormal. SEG % (test code = 24200-8) 83 % 33-76 H BAND % (test code = 97228-4) 9 % 0-1 H LYMPH % (test code = 75476-1) 8 % 14-54 L ANC (test code = 753-4) 20.01 10*3/uL 1.88-7.09 H Lab Interpretation (test code = 62714-7) Abnormal [facility] with Qbqacvqepbti6284-90-25 11:22:51* Test Item Value Reference Range Interpretation Comme nts WBC (test code = 6690-2) 21.75 See_Comment H [Automated message] The system which generated this result transmitted reference range: 4.30 - 11.10 10*3/?L. The reference range was not used to interpret this result as normal/abnormal. RBC (test code = 789-8) 3.93 See_Comment [Automated message] The system which generated this result transmitted reference range: 3.93 - 5.25 10*6/?L. The reference range was not used to interpret this result as normal/abnormal. HGB (test code = 718-7) 8.9 g/dL 11.6-15.0 L HCT (test code = 4544-3) 28.3 % 35.7-45.2 L MCV (test code = 787-2) 72.0 fL 80.6-95.5 L MCH (test code = 785-6) 22.6 pg 25.9-32.8 L MCHC (test code = 786-4) 31.4 g/dL 31.6-35.1 L RDW-SD (test code = 63521-1) 37.8 fL 39.0-49.9 L RDW-CV (test code = 788-0) 14.6 % 12.0-15.5 PLT (test code = 777-3) 216 See_Comment [Automated message] The system which generated this result transmitted reference range: 166 - 358 10*3/?L. The reference range was not used to interpret this result as normal/abnormal. MPV (test code = 14718-6) 10.8 fL 9.5-12.9 NRBC/100 WBC (test code = 8734292081) 0.0 See_Comment [Automated message] The system which generated this result transmitted reference range: 0.0 - 10.0 /100 WBCs. The reference range was not used to interpret this result as normal/abnormal. NRBC x10^3 (test code = 3855138238) See_Comment [Automated message] The system which generated this result transmitted reference range: 10*3/?L. The reference range was not used to interpret this result as normal/abnormal. SEG % (test code = 27087-4) 83 % 33-76 H BAND % (test code = 31462-9) 9 % 0-1 H LYMPH % (test code = 55484-2) 8 % 14-54 L ANC (test code = 753-4) 20.01 10*3/uL 1.88-7.09 H Lab Interpretation (test code = 23374-1) Abnormal [facility] URINALYSIS W SPECIFIC [id number] 19:23:00* Test Item Value Reference Range Interpretation Comme nts POCT U SP GRAV (test code = 3255) . 1.005-1.025 POCT PH U (test code = 3254) . 5-8 POCT U LEUK EST (test code = 3263) . Negative - N egative POCT U NIT (test code = 3262) . Negative - Negati ve POCT U PROT (test code = 3259) trace Negative - Negat chris POCT U GLU (test code = 3256) neg Negative - Negati ve POCT U KETONE (test code = 3258) . Negative - Neg ative POCT U UROBILI (test code = 3260) . 0.2-1 POCT U BILI (test code = 3261) . Negative - Negat chris POCT U BLD (test code = 3257) . Negative - Negati ve POCT U COLOR (test code = 3266) POCT U APPEAR (test code = 3267) . [facility] URINALYSIS W SPECIFIC [id number] 19:48:00* Test Item Value Reference Range Interpretation Comme nts POCT U SP GRAV (test code = 3255) . 1.005-1.025 POCT PH U (test code = 3254) . 5-8 POCT U LEUK EST (test code = 3263) . Negative - N egative POCT U NIT (test code = 3262) . Negative - Negati ve POCT U PROT (test code = 3259) trace Negative - Negat chris POCT U GLU (test code = 3256) neg Negative - Negati ve POCT U KETONE (test code = 3258) . Negative - Neg ative POCT U UROBILI (test code = 3260) . 0.2-1 POCT U BILI (test code = 3261) . Negative - Negat chris POCT U BLD (test code = 3257) . Negative - Negati ve POCT U COLOR (test code = 3266) . POCT U APPEAR (test code = 3267) . [facility] URINALYSIS W SPECIFIC [id number] 18:04:00* Test Item Value Reference Range Interpretation Comme nts POCT U SP GRAV (test code = 3255) . 1.005-1.025 POCT PH U (test code = 3254) . 5-8 POCT U LEUK EST (test code = 3263) . Negative - N egative POCT U NIT (test code = 3262) . Negative - Negati ve POCT U PROT (test code = 3259) trace Negative - Negat chris POCT U GLU (test code = 3256) neg Negative - Negati ve POCT U KETONE (test code = 3258) . Negative - Neg ative POCT U UROBILI (test code = 3260) . 0.2-1 POCT U BILI (test code = 3261) . Negative - Negat chris POCT U BLD (test code = 3257) . Negative - Negati ve POCT U COLOR (test code = 3266) . POCT U APPEAR (test code = 3267) . [facility] with [id number] 04:55:42* Test Item Value Reference Range Interpretation Comme nts WBC (test code = 6690-2) 12.52 See_Comment H [Automated [employer]] The system which generated this result transmitted reference range: 4.30 - 11.10 10*3/?L. The reference range was not used to interpret this result as normal/abnormal. RBC (test code = 789-8) 4.28 See_Comment [Automated [employer]] The system which generated this result transmitted reference range: 3.93 - 5.25 10*6/?L. The reference range was not used to interpret this result as normal/abnormal. HGB (test code = 718-7) 11.2 g/dL 11.6-15.0 L HCT (test code = 4544-3) 34.6 % 35.7-45.2 L MCV (test code = 787-2) 80.8 fL 80.6-95.5 MCH (test code = 785-6) 26.2 pg 25.9-32.8 MCHC (test code = 786-4) 32.4 g/dL 31.6-35.1 RDW-SD (test code = 97104-5) 39.8 fL 39.0-49.9 RDW-CV (test code = 788-0) 13.8 % 12.0-15.5 PLT (test code = 777-3) 287 See_Comment [Automated [employer]] The system which generated this result transmitted reference range: 166 - 358 10*3/?L. The reference range was not used to interpret this result as normal/abnormal. MPV (test code = 75710-7) 11.0 fL 9.5-12.9 NRBC/100 WBC (test code = 7107060825) 0.0 See_Comment [Automated me ssage] The system which generated this result transmitted reference range: 0.0 - 10.0 /100 WBCs. The reference range was not used to interpret this result as normal/abnormal. NRBC x10^3 (test code = 6653507676) See_Comment [Automated messa ge] The system which generated this result transmitted reference range: 10*3/?L. The reference range was not used to interpret this result as normal/abnormal. GRAN MAT (NEUT) % (test code = 770-8) 68.4 % IMM GRAN % (test code = 7972010089) 1.10 % LYMPH % (test code = 736-9) 19.6 % MONO % (test code = 5905-5) 6.5 % EOS % (test code = 713-8) 3.8 % BASO % (test code = 706-2) 0.6 % GRAN MAT x10^3(ANC) (test code = 2656170915) 8.56 10*3/uL 1.88-7.09 H IMM GRAN x10^3 (test code = 3987399484) 0.14 10*3/uL 0.00-0.06 H LYMPH x10^3 (test code = 731-0) 2.46 10*3/uL 1.32-3.29 MONO x10^3 (test code = 742-7) 0.82 10*3/uL 0.33-0.92 EOS x10^3 (test code = 711-2) 0.47 10*3/uL 0.03-0.39 H BASO x10^3 (test code = 704-7) 0.07 10*3/uL 0.01-0.07 Lab Interpretation (test code = 36860-7) [facility] [id number] 04:31:20* Test Item Value Reference Range Interpretation Comme nts GLUC 1 HR (test code = 9833951254) 72 mg/dL 120-170 L Lab Interpretation (test cod e = 78395-7) Abnormal [facility] URINALYSIS W SPECIFIC [id number] 20:18:00* Test Item Value Reference Range Interpretation Comme nts POCT U SP GRAV (test code = 3255) . 1.005-1.025 POCT PH U (test code = 3254) . 5-8 POCT U LEUK EST (test code = 3263) . Negative - N egative POCT U NIT (test code = 3262) . Negative - Negati ve POCT U PROT (test code = 3259) trace Negative - Negat chris POCT U GLU (test code = 3256) neg Negative - Negati ve POCT U KETONE (test code = 3258) . Negative - Neg ative POCT U UROBILI (test code = 3260) . 0.2-1 POCT U BILI (test code = 3261) . Negative - Negat chris POCT U BLD (test code = 3257) . Negative - Negati ve POCT U COLOR (test code = 3266) . POCT U APPEAR (test code = 3267) . [facility] URINALYSIS W SPECIFIC [id number] 20:18:00* Test Item Value Reference Range Interpretation Comme nts POCT U SP GRAV (test code = 3255) . 1.005-1.025 POCT PH U (test code = 3254) . 5-8 POCT U LEUK EST (test code = 3263) . Negative - N egative POCT U NIT (test code = 3262) . Negative - Negati ve POCT U PROT (test code = 3259) trace Negative - Negat chris POCT U GLU (test code = 3256) neg Negative - Negati ve POCT U KETONE (test code = 3258) . Negative - Neg ative POCT U UROBILI (test code = 3260) . 0.2-1 POCT U BILI (test code = 3261) . Negative - Negat chris POCT U BLD (test code = 3257) . Negative - Negati ve POCT U COLOR (test code = 3266) . POCT U APPEAR (test code = 3267) . [facility] URINALYSIS W SPECIFIC [id number] 17:24:00* Test Item Value Reference Range Interpretation Comme nts POCT U SP GRAV (test code = 3255) . 1.005-1.025 POCT PH U (test code = 3254) . 5-8 POCT U LEUK EST (test code = 3263) . Negative - N egative POCT U NIT (test code = 3262) . Negative - Negati ve POCT U PROT (test code = 3259) trace Negative - Negat chris POCT U GLU (test code = 3256) neg Negative - Negati ve POCT U KETONE (test code = 3258) . Negative - Neg ative POCT U UROBILI (test code = 3260) . 0.2-1 POCT U BILI (test code = 3261) . Negative - Negat chris POCT U BLD (test code = 3257) . Negative - Negati ve POCT U COLOR (test code = 3266) . POCT U APPEAR (test code = 3267) . [facility] URINALYSIS W SPECIFIC [id number] 16:03:00* Test Item Value Reference Range Interpretation Comme nts POCT U SP GRAV (test code = 3255) . 1.005-1.025 POCT PH U (test code = 3254) 6 mg/dl 5-8 POCT U LEUK EST (test code = 3263) Trace Negative - Negative POCT U NIT (test code = 3262) Neg Negative - Negati ve POCT U PROT (test code = 3259) Trace Negative - Negat chris POCT U GLU (test code = 3256) Neg Negative - Negati ve POCT U KETONE (test code = 3258) None Negative - Neg ative POCT U UROBILI (test code = 3260) . 0.2-1 POCT U BILI (test code = 3261) . Negative - Negat chris POCT U BLD (test code = 3257) Trace Negative - Negati ve POCT U COLOR (test code = 3266) . POCT U APPEAR (test code = 3267) . [facility] URINALYSIS W SPECIFIC [id number] 17:19:00* Test Item Value Reference Range Interpretation Comme nts POCT U SP GRAV (test code = 3255) . 1.005-1.025 POCT PH U (test code = 3254) 5 mg/dl 5-8 POCT U LEUK EST (test code = 3263) negative Negative - Negative POCT U NIT (test code = 3262) negative Negative - Negati ve POCT U PROT (test code = 3259) trace Negative - Negat chris POCT U GLU (test code = 3256) negative Negative - Negati ve POCT U KETONE (test code = 3258) negative Negative - Neg ative POCT U UROBILI (test code = 3260) . 0.2-1 POCT U BILI (test code = 3261) . Negative - Negat chris POCT U BLD (test code = 3257) . Negative - Negati ve POCT U COLOR (test code = 3266) . POCT U APPEAR (test code = 3267) . [facility] URINALYSIS W SPECIFIC [id number] 17:19:00* Test Item Value Reference Range Interpretation Comme nts POCT U SP GRAV (test code = 3255) . 1.005-1.025 POCT PH U (test code = 3254) 5 mg/dl 5-8 POCT U LEUK EST (test code = 3263) negative Negative - Negative POCT U NIT (test code = 3262) negative Negative - Negati ve POCT U PROT (test code = 3259) trace Negative - Negat chris POCT U GLU (test code = 3256) negative Negative - Negati ve POCT U KETONE (test code = 3258) negative Negative - Neg ative POCT U UROBILI (test code = 3260) . 0.2-1 POCT U BILI (test code = 3261) . Negative - Negat chris POCT U BLD (test code = 3257) . Negative - Negati ve POCT U COLOR (test code = 3266) . POCT U APPEAR (test code = 3267) . [facility] URINALYSIS W SPECIFIC [id number] 16:39:00* Test Item Value Reference Range Interpretation Comme nts POCT U SP GRAV (test code = 3255) . 1.005-1.025 POCT PH U (test code = 3254) 6 mg/dl 5-8 POCT U LEUK EST (test code = 3263) 2+ Negative - Negative POCT U NIT (test code = 3262) neg Negative - Negati ve POCT U PROT (test code = 3259) trace Negative - Negat chris POCT U GLU (test code = 3256) neg Negative - Negati ve POCT U KETONE (test code = 3258) neg Negative - Neg ative POCT U UROBILI (test code = 3260) . 0.2-1 POCT U BILI (test code = 3261) . Negative - Negat chris POCT U BLD (test code = 3257) neg Negative - Negati ve POCT U COLOR (test code = 3266) POCT U APPEAR (test code = 3267) [facility] URINALYSIS W SPECIFIC [id number] 19:37:00* Test Item Value Reference Range Interpretation Comme nts POCT U SP GRAV (test code = 3255) . 1.005-1.025 POCT PH U (test code = 3254) 5 mg/dl 5-8 POCT U LEUK EST (test code = 3263) . Negative - Negative POCT U NIT (test code = 3262) . Negative - Negati ve POCT U PROT (test code = 3259) trace Negative - Negat chris POCT U GLU (test code = 3256) . Negative - Negati ve POCT U KETONE (test code = 3258) . Negative - Neg ative POCT U UROBILI (test code = 3260) . 0.2-1 POCT U BILI (test code = 3261) . Negative - Negat chris POCT U BLD (test code = 3257) . Negative - Negati ve POCT U COLOR (test code = 3266) . POCT U APPEAR (test code = 3267) . [facility] URINALYSIS W SPECIFIC [id number] 15:33:00* Test Item Value Reference Range Interpretation Comme nts POCT U SP GRAV (test code = 3255) . 1.005-1.025 POCT PH U (test code = 3254) 7 mg/dl 5-8 POCT U LEUK EST (test code = 3263) Neg Negative - Negative POCT U NIT (test code = 3262) Neg Negative - Negati ve POCT U PROT (test code = 3259) Trace Negative - Negat chris POCT U GLU (test code = 3256) Neg Negative - Negati ve POCT U KETONE (test code = 3258) None Negative - Neg ative POCT U UROBILI (test code = 3260) . 0.2-1 POCT U BILI (test code = 3261) . Negative - Negat chris POCT U BLD (test code = 3257) Trace Negative - Negati ve POCT U COLOR (test code = 3266) . POCT U APPEAR (test code = 3267) . [facility] [id number] 14:34:00* Test Item Value Reference Range Interpretation Comme nts POCT PREG (test code = 1605) Positive On board controls acceptable with C Line (test code = 3574) Yes POCT PREG LOT # (test code = 3575) POCT PREG TEST DATE ( test code = 357) [facility] URINALYSIS W/O SPECIFIC [id number] 14:34:00* Test Item Value Reference Range Interpretation Comme nts POCT PH U (test code = 3254) 5 mg/dl 5-8 POCT U LEUK EST (test code = 3263) negative Negative - Negative POCT U NIT (test code = 3262) negative Negative - Negati ve POCT U PROT (test code = 3259) trace Negative - Negat chris POCT U GLU (test code = 3256) negative Negative - Negati ve POCT U KETONE (test code = 3258) 2++ Negative - Neg ative POCT U BLD (test code = 3257) negative Negative - Negati ve [facility] [id number] 14:34:00* Test Item Value Reference Range Interpretation Comme nts POCT PREG (test code = 1605) Positive On board controls acceptable with C Line (test code = 3574) Yes POCT PREG LOT # (test code = 3575) POCT PREG TEST DATE ( test code = 357) [facility] URINALYSIS W/O SPECIFIC [id number] 14:34:00* Test Item Value Reference Range Interpretation Comme nts POCT PH U (test code = 3254) 5 mg/dl 5-8 POCT U LEUK EST (test code = 3263) negative Negative - Negative POCT U NIT (test code = 3262) negative Negative - Negati ve POCT U PROT (test code = 3259) trace Negative - Negat chris POCT U GLU (test code = 3256) negative Negative - Negati ve POCT U KETONE (test code = 3258) 2++ Negative - Neg ative POCT U BLD (test code = 3257) negative Negative - Negati ve [facility] [id number] 14:31:00* Test Item Value Reference Range Interpretation Comme nts POCT PREG (test code = 1605) Positive On board controls acceptable with C Line (test code = 3574) Yes POCT PREG LOT # (test code = 3575) POCT PREG TEST DATE ( test code = 3576) [facility] [id number] 18:26:00* Test Item Value Reference Range Interpretation Comme nts POCT PREG (test code = 1605) Negative On board controls acceptable with C Line (test code = 3574) Yes POCT PREG LOT # (test code = 3575) POCT PREG TEST DATE (test code = 3576) ARGENIS (test code = AREGNIS) accurate developme nt and interpretation of all internal controls [facility]
[2023-02-02 21:10] LABS: Specific Gravity > 1.030 (1.005-1.030)
[2023-02-02 21:12] LABS: Specific Gravity > 1.030 (1.005-1.030); Urine Bacteria None Seen /HPF (<20); Urine Bilirubin NEGATIVE (Negative); Urine Blood Negative (Negative); Urine Clarity Clear (Clear); Urine Color Yellow (Yellow); Urine Glucose NEGATIVE (Negative); Urine Mucus 3+ /HPF (None Seen); Urine Protein 1+ (Negative); Urine RBC <5 /HPF (None Seen); Urine Urobilinogen 2+ (Normal)
[2023-02-02 21:13] LABS: Absolute Lymphocytes (CBC) 1.1 K/uL (0.7-4.9); Hematocrit 38.7 % (36.0-45.0); Lymphocytes % 20.4 % (15.3-44.8); MCV 66.9 fL (80-100); MPV 8.7 fL (7.6-11.3); Platelets 257 thou/uL (152-406); RBC Red Blood Cell Count 5.79 M/uL (3.86-4.86)
[2023-02-02 21:25] LABS: Albumin 3.6 g/dL (3.4-5.0); Bilirubin Total 0.7 mg/dL (0.2-1.0); Potassium 3.5 mEq/L (3.5-5.1); Protein, Total 7.7 g/dL (6.4-8.2)
[2023-02-02 21:32] LABS: Blood Morphology Comment NOTED (NOT SEEN); Hypochromasia 1+; Platelet Estimate ADEQ; White Blood Cell Scan OK (OK)
--- NOTE | 2023-02-03 00:26 | ER ---
Nurse's Notes [facility] Name: Sil Gaytan Age: 22 yrs Sex: Female : 2000 Arrival Date: 02/02/2023 Time: 18:57 Bed 10 Private MD: Diagnosis: Cough Presentation: 02/02 19:29 Chief complaint: Patient states: body aches and feeling cold and hot,onset last night. pf1 Patient denies any pain at this time, took Tylenol cold and flu at 4 hours ago. Patient stated was exposed to Flu about 1.5 weeks ago. Coronavirus screen: Vaccine status: Patient reports being unvaccinated. Client denies travel out of the [place] in the last 14 days. Client presents with at least one sign or symptom that may indicate coronavirus-19. Ebola Screen: Patient negative for fever greater than or equal to 101.5 degrees Fahrenheit, and additional compatible Ebola Virus Disease symptoms. Initial Sepsis Screen: Does the patient meet any 2 criteria? HR > 90 bpm. No. Patient's initial sepsis screen is negative. Does the patient have a suspected source of infection? No. Patient's initial sepsis screen is negative. Risk Assessment: Do you want to hurt yourself or someone else? Patient reports no desire to harm self or others. 19:29 Method Of Arrival: Ambulatory pf1 19:29 Acuity: DELMAR 4 pf1 Historical: - Allergies: 19:33 Codeine; pf1 19:33 PENICILLINS; pf1 19:33 Prednisone; pf1 19:33 Vancomycin; pf1 - PMHx: 19:33 Asthma; Hypertensive disorder; pf1 - PSHx: 19:33 ; pf1 - Immunization history:: Adult Immunizations up to date, Client reports having NOT received the Covid vaccine. Last tetanus immunization: < 5 years ago Flu vaccine is not up to date. - Social history:: Smoking status: Patient denies any tobacco usage or history of. Patient uses alcohol, occasionally. street drugs, marijuana. Screenin:18 [facility] ED Fall Risk Assessment (Adult) History of falling in the last 3 months, me1 including since admission No falls in past 3 months (0 pts) Confusion or Disorientation No (0 pts) Intoxicated or Sedated No (0 pts) Impaired Gait No (0 pts) Mobility Assist Device Used No (0 pt) Altered Elimination No (0 pt) Score/Fall Risk Level 0 - 2 = Low Risk Maintained a safe environment, Hourly rounding (assess needs \T\ fall precautionary measures) done, Used ambulatory aids as needed (educated on \T\ assisted with). Abuse screen: Denies threats or abuse. Nutritional screening: No deficits noted. Tuberculosis screening: No symptoms or risk factors identified. Assessment: 21:18 General: Appears uncomfortable, well groomed, well developed, well nourished, Behavior me1 is calm, cooperative, appropriate for age, Reports body aches and chills that started last night. Denies pain at this time. Exposed to flu about 1.5 weeks ago. Pain: Denies pain. Neuro: Level of Consciousness is awake, alert, obeys commands, Oriented to person, place, time, situation, Appropriate for age. Cardiovascular: Capillary refill < 3 seconds Patient's skin is warm and dry. Respiratory: Airway is patent Respiratory effort is even, unlabored, Respiratory pattern is regular, symmetrical. 02/03 00:30 Reassessment: Patient appears in no apparent distress at this time. Patient and/or pf1 family updated on plan of care and expected duration. Pain level reassessed. Patient is alert, oriented x 3, equal unlabored respirations, skin warm/dry/pink. Patient states feeling better. Patient states symptoms have improved. Vital Signs: 02/02 19:29 BP 141 / 81; Pulse 93; Resp 16; Temp 97.3; Pulse Ox 100% on R/A; Weight 78.47 kg; pf1 Height 5 ft. 6 in. ; Pain 0/10; 20:00 BP 138 / 97; Pulse 82; Resp 17; Pulse Ox 100% on R/A; me1 21:00 BP 141 / 92; Pulse 78; Resp 18; Pulse Ox 99% on R/A; me1 22:10 BP 131 / 88; Pulse 81; Resp 17; Pulse Ox 98% on R/A; me1 23:22 BP 133 / 98; Pulse 86; Resp 16; Pulse Ox 100% ; me1 02/03 00:30 BP 111 / 68; Pulse 88; Resp 16; Pulse Ox 100% on R/A; Pain 0/10; pf1 02/02 19:29 Body Mass Index 27.92 (78.47 kg, 167.64 cm) pf1 12 19:29 Pain Scale: Adult pf1 02/03 00:30 Pain Scale: Adult pf1 ED Course: 02/02 19:03 Patient arrived in ED. kj1 19:03 Magan Fink MD is Attending Physician. ec2 19:26 Arm band placed on. mb9 19:27 David Montana PA is PHCP. cp 19:27 Magan Fink MD is Attending Physician. cp 19:33 Triage completed. pf1 20:31 Jennifer Logan, ABDIFATAH is Primary Nurse. me1 21:03 Influenza Screen (a \T\ B) Sent. me1 21:03 COVID-19 SARS RT PCR Sent. me1 21:03 CBC with Diff Sent. me1 21:03 CMP Sent. me1 21:03 Lipase Sent. me1 21:03 Test, Urine Sent. me1 21:03 Urinalysis w/ reflexes Sent. me1 21:03 Inserted saline lock: 20 gauge in right antecubital area, using aseptic technique. me1 21:18 Allergy band placed. Call light in reach. Side rails up X 1. Provided Education on: me1 POC. Verbalized understanding. . 21:18 No provider procedures requiring assistance completed. me1 23:21 XRAY Chest (1 view) In Process Unspecified. EDMS 12 00:43 IV discontinued, intact, bleeding controlled, No redness/swelling at site. Pressure pf1 dressing applied. Administered Medications: No medications were administered Medication: 02/02 21:18 VIS not applicable for this client. me1 Outcome: 02/03 00:26 Discharge ordered by . cp 00:44 Discharged to home ambulatory, pf1 00:44 Condition: improved 00:44 Discharge instructions given to patient, Instructed on discharge instructions, follow up and referral plans. Demonstrated understanding of instructions, follow-up care, medications, Prescriptions given X 2, 00:44 Patient left the ED. pf1 Signatures: Dispatcher [employer] EDNM David Montana PA PA cp Jackson, Kandis kj1 Mary Stoll RN RN Kelly Baltazar RN RN pf1 Jennifer Logan RN RN me1 Magan Fink MD MD ec2 Corrections: (The following items were deleted from the chart) 02/02 19:33 19:26 Chief complaint: mb9 pf1 21:18 19:29 Chief complaint: Patient states: body aches and feeling cold and hot,onset last me1 night. Patient denies any pain at this time, took Tylenol cold and flu at 4 hours ago. Patient stated was exposed to Flu about 1.5 weeks ago. pf1
--- NOTE | 2023-02-03 00:26 | EDPHYS ---
Physician Documentation [facility] Name: Sil Gaytan Age: 22 yrs Sex: Female : 2000 Arrival Date: 02/02/2023 Time: 18:57 Bed 10 Private MD: ED Physician Magan Fink HPI: 02/02 21:00 This 22 yrs old Female presents to ER via Ambulatory with complaints of Flu Symptoms. cp 21:00 Patient presents to ED with c/o body aches, chills that started last night. Patient cp reports cough for couple weeks. Lower abdominal pain/cramping yesterday, none today. Patient reports recent miscarriage. No current vaginal bleeding. Historical: - Allergies: 19:33 Codeine; pf1 19:33 PENICILLINS; pf1 19:33 Prednisone; pf1 19:33 Vancomycin; pf1 - PMHx: 19:33 Asthma; Hypertensive disorder; pf1 - PSHx: 19:33 ; pf1 - Immunization history:: Adult Immunizations up to date, Client reports having NOT received the Covid vaccine. Last tetanus immunization: < 5 years ago Flu vaccine is not up to date. - Social history:: Smoking status: Patient denies any tobacco usage or history of. Patient uses alcohol, occasionally. street drugs, marijuana. ROS: 21:05 Constitutional: Positive for chills, Negative for fever, poor PO intake, cp 21:05 Eyes: Negative for injury, pain, redness, and discharge, cp 21:05 ENT: Positive for sore throat, 21:05 Neck: Negative for pain with movement, pain at rest, stiffness, tenderness, 21:05 Respiratory: Positive for cough, Negative for shortness of breath, wheezing, 21:05 Abdomen/GI: Negative for abdominal pain, vomiting, diarrhea, constipation, 21:05 : Negative for urinary symptoms, vaginal bleeding, vaginal discharge, 21:05 Neuro: Negative for altered mental status, weakness, 21:05 All other systems are negative, Exam: 21:10 Constitutional: The patient appears in no acute distress, alert, awake, non-toxic, well cp developed, well nourished, 21:10 Head/Face: Normocephalic, atraumatic. cp 21:10 Eyes: Periorbital structures: appear normal, Conjunctiva: normal, no exudate, no injection, Sclera: no appreciated abnormality, Lids and lashes: appear normal, bilaterally, 21:10 ENT: External ear(s): are unremarkable, Nose: is normal, Mouth: Lips: moist, Oral mucosa: pink and intact, moist, Posterior pharynx: Airway: no evidence of obstruction, patent, Tonsils: no enlargement, no exudate, erythema, that is mild, exudate, is not appreciated, 21:10 Neck: ROM/movement: is normal, is supple, without pain, no range of motions limitations, no meningismus, no nuchal rigidity, 21:10 Chest/axilla: Inspection: normal, 21:10 Cardiovascular: Rate: normal, Rhythm: regular, 21:10 Respiratory: the patient does not display signs of respiratory distress, Respirations: normal, no use of accessory muscles, no retractions, labored breathing, is not present, Breath sounds: are clear throughout, no decreased breath sounds, no stridor, no wheezing, decreased breath sounds, are not appreciated, stridor, is not appreciated, 21:10 Abdomen/GI: Inspection: abdomen appears normal, Palpation: abdomen is soft and non-tender, in all quadrants, 21:10 Back: pain, is absent, ROM is normal, 21:10 Skin: no rash present. Vital Signs: 19:29 BP 141 / 81; Pulse 93; Resp 16; Temp 97.3; Pulse Ox 100% on R/A; Weight 78.47 kg; pf1 Height 5 ft. 6 in. ; Pain 0/10; 20:00 BP 138 / 97; Pulse 82; Resp 17; Pulse Ox 100% on R/A; me1 21:00 BP 141 / 92; Pulse 78; Resp 18; Pulse Ox 99% on R/A; me1 22:10 BP 131 / 88; Pulse 81; Resp 17; Pulse Ox 98% on R/A; me1 23:22 BP 133 / 98; Pulse 86; Resp 16; Pulse Ox 100% ; me1 08 00:30 BP 111 / 68; Pulse 88; Resp 16; Pulse Ox 100% on R/A; Pain 0/10; pf1 02/02 19:29 Body Mass Index 27.92 (78.47 kg, 167.64 cm) pf1 02/02 19:29 Pain Scale: Adult pf1 02/03 00:30 Pain Scale: Adult pf1 MDM: 02/02 19:27 Patient medically screened. cp 02/03 00:25 Data reviewed: vital signs, nurses notes, lab test result(s), radiologic studies, plain cp films. 00:25 Differential diagnosis: viral Infection, bacterial infection, bronchitis, pneumonia cp UTI. Counseling: I had a detailed discussion with the patient and/or guardian regarding the historical points, exam findings, and any diagnostic results supporting the discharge/admit diagnosis, lab results, radiology results, to return to the emergency department if symptoms worsen or persist or if there are any questions or concerns that arise at home. Response to treatment: the patient's symptoms have mildly improved after treatment. 02/02 20:35 Order name: CBC with Diff; Complete Time: 21:52 cp 02/02 20:35 Order name: CMP; Complete Time: 21:52 cp 02/02 20:35 Order name: Lipase; Complete Time: 21:52 cp 02/02 20:35 Order name: Test, Urine; Complete Time: 21:52 cp 02/02 20:35 Order name: Urinalysis w/ reflexes; Complete Time: 21:52 cp 02/02 20:35 Order name: COVID-19 SARS RT PCR; Complete Time: 21:52 cp 02/02 20:35 Order name: Influenza Screen (a \T\ B); Complete Time: 21:52 cp 02/02 21:32 Order name: CBC Smear Scan; Complete Time: 21:52 EDMS 02/02 22:50 Order name: XRAY Chest (1 view) cp 02/02 20:35 Order name: IV Saline Lock; Complete Time: 21:03 cp 02/02 20:35 Order name: Labs collected and sent; Complete Time: 21:03 cp Administered Medications: No medications were administered Disposition Summary: 02/03/23 00:26 Discharge Ordered Notes: Location: Home cp Problem: new cp Symptoms: have improved cp Condition: Stable cp Diagnosis - Cough cp Followup: cp - With: Private Physician - When: 2 - 3 days - Reason: Worsening of condition Discharge Instructions: - Discharge Summary Sheet cp - Cool Mist Vaporizer cp - Cough, Adult cp Forms: - Medication Reconciliation Form cp - Thank You Letter cp - Antibiotic Education cp - Prescription Opioid Use cp - Patient Portal Instructions cp - Leadership Thank You Letter cp Prescriptions: - Tessalon Perles 100 mg Oral Capsule - take 1 capsule ORAL route every 8 hours As needed; 15 capsule; Refills: 0, cp Product Selection Permitted - Zithromax Z-Cody 250 mg Oral Tablet - take 1 tablet ORAL route as directed for 5 days Day 1 - take two (2) tablets cp one time. Day 2, 3, 4 , 5 take one (1) tablet once daily.; 6 tablet; Refills: 0, Product Selection Permitted Signatures: Dispatcher [employer] EDMS David Montana PA PA cp Finley, Pamala RN RN pf1 Corrections: (The following items were deleted from the chart) 02/04 00:30 02/02 21:00 Patient presents to ED with c/o body aches, chills that started last night. cp cp
[2023-02-03 01:31] VITALS: TEMP 97.3
[2023-02-03 01:44] VITALS: O2SAT 100
[2023-02-03 01:46] VITALS: BP 111/68
--- NOTE | 2023-02-03 22:22 | RAD REPORT ---
EXAM DESCRIPTION: RAD - Chest Single View - 02/02/2023 11:19 pm CLINICAL HISTORY: COUGH. COMPARISON: None. TECHNIQUE: Single view AP chest radiograph(s). FINDINGS: Mild perihilar interstitial thickening. No infiltrate identified. No pleural effusion. No pneumothorax. Nonenlarged cardiomediastinal silhouette. No significant osseous abnormality. IMPRESSION: Mild perihilar interstitial thickening. No infiltrate identified. 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 The interpreting radiologist is fully responsible for the content of the report.
== END 2023-02-03 00:44 | disposition home or self-care (01) ==
LOC: ER 18:57
DX: R05.9 Cough, unspecified (principal); Z11.52 Encounter for screening for COVID-19; Z88.0 Allergy status to penicillin; Z88.3 Allergy status to other anti-infective agents; Z88.5 Allergy status to narcotic agent; Z88.8 Allergy status to other drugs, medicaments and biological substances
CPT/HCPCS: 36415; 71045; 80053; 81001; 81025; 83690; 85025; 87635; 87804; 99284

== ENCOUNTER → 2023-03-12 | Emergency (ER) | payer OTHER ==
--- OUTSIDE RECORDS SUMMARY | 2023-03-12 14:32 | XMS REPORT | Continuity of Care Document ---
Author Name Unknown Address [address] [facility] [address] [place] [address] [facility] thconnect Address [address] [facility] [address] [place] [address] Care Team Providers Care Laboratory Chief Name Role Phone Tushar Villarreal Primary Care Physicia n KASEY BLANCO Attending Clinician KASEY Petty Attending Clinician Neftali Membreno Attending Clinician Unavailable Tushar Villarreal Attending Clinician + TUSHAR LAN Attending Clinician Unavail able Doctor Unassigned, Jim Falls Attending Clinician MOSHE Oro Attending Clinician Unavailable Visit, Neftali Nurse Attending Clinician HETAL Geiger Attending Clinician Unavailable Adum MD, Hetal L Attending Clinician [phone] Patt Nova RN Attending Clinician UnavailAUSTIN Emery Attending Clinician Unavailable Maxim ANDRES, Austin Washington Attending Clinician [phone] Antonette Luque CNM Attending Clinician [phone] ANTONETTE LUQUE Attending Clinician Unavaila ble Risk, Scr-Vpyhb-If/High Attending Clinician Unav ailable Shereen Sky MD Attending Clinician [phone] SHEREEN SKY Attending Clinician Unavailable Ultrasound, Ang-Mfm Attending Clinician Unavaila ble EDWIN CAGE Attending Clinician Unavailable Fauzia Edwin JASON Attending Clinician [phone] David Cooper DO Attending Clinician [phone] SARA SNYDER Attending Clinician Unavaila SARA Kauffman Attending Clinician Unavaila ble Provider, Ang-chp Temp Attending Clinician Tika yazmin ACEVEDOP, Roshunda R Attending Clinician + [phone] MARTÍN RALPHNDA R Attending Clinician Unavailab JAM Neville Attending Clinician Unavailable CLINTON CRUMP Attending Clinician Unavailable Sarkis QUINONEZ, Ernesto Rosario Attending Clinician + [phone] ERNESTO PEACOCK Attending Clinician UnavailHarvinder QUINONEZ, Rosio Attending Clinician [phone] Dylan Prieto MD Attending Clinician [phone] Maria PALACIOS, SOURCING MANAGER, R Attending Clinician [phone] Jeffery Dumont DO Attending Clinician [phone] Radha Charlton MD Attending Clinician [phone] Selam Fields Attending Clinician [phone] SELAM ALVES Attending Clinician Unavailab KASEY Tolentino Admitting Clinician AUSTIN Hughes Admitting Clinician Unavailable HETAL NORRIS Admitting Clinician Unavailable Hetal Norris MD Admitting Clinician Austin Arzola MD Admitting Clinician SARA SNYDER Admitting Clinician Unavaila ble Payers Payer Name Policy Type Policy Number Effective Date Expirati on Date Source [employer] [id number] 2021 00:00:00 Problems Condition Name Condition Details Condition Category Status Onset Date Resolution Date Last Treatment Date Treating Clinician Comments Source Well woman exam Well woman exam Disease Active 7-12 00:00: 00 [facility] Routine follow-up Routine follow-up Disease Active 0 6-16 00:00: 00 [facility] induced hypertensi on, antepartum induced hypertensi on, antepartum Disease Active 0 6-02 00:00: 00 [facility] state state Disease Active 6-02 00:00: 00 [facility] Obesity (BMI 30-39.9) Obesity (BMI 30-39.9) Disease Active 5-28 00:00: 00 [facility] Postoperat chris fever Postoperat chris fever Disease Active 5-28 00:00: 00 [facility] premature rupture of membranes (PPROM) with onset of labor within 24 hours of rupture in third trimester, antepartum premature rupture of membranes (PPROM) with onset of labor within 24 hours of rupture in third trimester, antepartum Disease Active 0 5-25 00:00: 00 [facility] 36 weeks gestation of 36 weeks gestation of Disease Active 0 5-25 00:00: 00 [facility] Liveborn , of [place] , born in hospital by delivery Liveborn infant, of [place] , born in hospital by delivery Disease Active 0 5-25 00:00: 00 [facility] UTI in UTI in Disease Active 5-24 00:00: 00 Overview: Formattin g of this note might be different from the original. Per meds sent and patient notified [facility] Supervisio n of high-risk Supervisio n of high-risk Disease Active 3-02 00:00: 00 [facility] Multiparit y Multiparit y Disease Active 3-02 00:00: 00 [facility] History of pre-eclamp raymond in prior , currently History of pre-eclamp raymond in prior , currently Disease Active 2021-02 0-27 00:00: 00 [facility] related nausea, antepartum related nausea, antepartum Disease Active 2021-02 0-27 00:00: 00 [facility] Declines flu vaccine Declines flu vaccine Disease Active 2021-02 0-27 00:00: 00 [facility] History of anxiety and depression History of anxiety and depression Disease Active 2021-02 0-27 00:00: 00 [facility] Missed menses Missed menses Disease Active 2021-02 0-13 00:00: 00 [facility] History of delivery, currently History of delivery, currently Disease Active 2021-02 0-13 00:00: 00 [facility] Other general counseling and advice for contracept chris management Other general counseling and advice for contracept chris management Disease Active 8-02 00:00: 00 [facility] Elevated blood pressure reading without diagnosis of hypertensi on Elevated blood pressure reading without diagnosis of hypertensi on Disease Active 8-02 00:00: 00 [facility] Encounter for surveillan ce of contracept chris pills Encounter for surveillan ce of contracept chris pills Disease Active 2020-02 1-22 00:00: 00 [facility] with inconclusi ve viability, single or unspecifie d fetus with inconclusi ve viability, single or unspecifie d fetus Disease Active 4-13 00:00: 00 [facility] Overweight Overweight Disease Active 4-13 00:00: 00 [facility] Asthma during Asthma during Disease Active 2019-02 0-29 00:00: 00 [facility] Allergies, Adverse Reactions, Alerts Allergy Name Allergy Type Status Severity Reaction(s) Onset Date Inactive Date Treating Clinician Comments Source Codeine Drug Allergy Active Cough 2019-02 00:00: 00 [facility] CODEINE DRUG INGREDI Active COUGH 2019-02 00:00: 00 [facility] Predniso lone Propensi ty to adverse reaction s Active Rash 06-03 00:00: 00 [facility] Penicill ins Propensi ty to adverse reaction s Active Rash 06-03 00:00: 00 [facility] PENICILL INS Drug Class Active Rash 06-03 00:00: 00 [facility] PREDNISO LONE DRUG INGREDI Active Rash 06-03 00:00: 00 [facility] Penicill ins Propensi ty to adverse reaction s Active Rash 06-03 00:00: 00 [facility] Social History Social Habit Start Date Stop Date Quantity Comments Source ASSERTION 2021-11-25 00:00:00 [facility] History SDOH Alcohol Std Drinks [facility] History SDOH Alcohol Binge [facility] History SDOH Alcohol Comment [place] [facility] 2022-09-07 00:00:00 2022-09-07 00:00:00 Ex-drinker (finding) [facility] Exposure to SARS-CoV-2 (event) 2022-07-11 00:00:00 2022-07-21 10:35:00 Not sure [facility] Tobacco use and exposure 2022-07-21 00:00:00 2022-07-21 00:00:00 Smokeless tobacco non-user [facility] History of Social function 2021-12-23 00:00:00 2021-12-23 00:00:00 [facility] History SDOH Alcohol Frequency 2018-12-20 00:00:00 2018-12-20 00:00:00 1 [facility] Sex Assigned At 2000 00:00:00 2000 00:00:00 [facility] Smoking Status Start Date Stop Date Source Never smoked tobacco [facility] Medications Ordered Medication Name Filled Medication Name Start Date Stop Date Current Medication? Ordering Clinician Indication Dosage Frequency Signature (SIG) Comments Components Source sulfamethox azole/trime thoprim (BACTRIM ORAL) 09-07 15:39: 00 Yes Take by mouth. [facility] CEPHALEXIN ORAL 09-07 15:39: 00 Yes Take by mouth 2 (two) times daily. [facility] sulfamethox azole/trime thoprim (BACTRIM ORAL) 09-07 15:39: 00 Yes Take by mouth. [facility] CEPHALEXIN ORAL 09-07 15:39: 00 Yes Take by mouth 2 (two) times daily. [facility] sulfamethox azole/trime thoprim (BACTRIM ORAL) 09-07 15:39: 00 Yes Take by mouth. [facility] CEPHALEXIN ORAL 09-07 15:39: 00 Yes Take by mouth 2 (two) times daily. [facility] sulfamethox azole/trime thoprim (BACTRIM ORAL) 09-07 15:39: 00 Yes Take by mouth. [facility] CEPHALEXIN ORAL 09-07 15:39: 00 Yes Take by mouth 2 (two) times daily. [facility] norethindro ne 0.35 mg tablet 09-07 00:00: 00 Yes [id number] 1{tbl} Take 1 tablet by mouth in the morning. [facility] norethindro ne 0.35 mg tablet 09-07 00:00: 00 Yes [id number] 1{tbl} Take 1 tablet by mouth in the morning. [facility] norethindro ne 0.35 mg tablet 09-07 00:00: 00 Yes [id number] 1{tbl} Take 1 tablet by mouth in the morning. [facility] norethindro ne 0.35 mg tablet 09-07 00:00: 00 Yes [id number] 1{tbl} Take 1 tablet by mouth in the morning. [facility] acetaminoph en (TYLENOL) tablet 650 mg 07-29 13:29: 04 Yes 650mg 650 mg, Oral, Q6HPRN, Starting on Mon07/29/22 at 0829, Until Discontinu ed, Routine, Pain (scale 1-3), Pain (scale 4-6) [facility] labetaloL (NORMODYNE) tablet 200 mg 07-29 06:00: 00 Yes 200mg 200 mg, Oral, Q12H, First dose on Mon07/29/22 at 0100, Until Discontinu ed, Routine [facility] labetaloL 200 mg tablet 07-29 00:00: 00 Yes [id number] 200mg Take 1 tablet by mouth every 12 (twelve) hours. [facility] labetaloL 200 mg tablet 07-29 00:00: 00 Yes [id number] 200mg Take 1 tablet by mouth every 12 (twelve) hours. [facility] labetaloL 200 mg tablet 07-29 00:00: 00 Yes [id number] 200mg Take 1 tablet by mouth every 12 (twelve) hours. [facility] labetaloL 200 mg tablet 07-29 00:00: 00 Yes [id number] 200mg Take 1 tablet by mouth every 12 (twelve) hours. [facility] labetaloL 200 mg tablet 0 07-29 00:00: 00 Yes [id number] 200mg Take 1 tablet by mouth every 12 (twelve) hours. [facility] labetaloL 200 mg tablet 0 07-29 00:00: 00 Yes [id number] 200mg Take 1 tablet by mouth every 12 (twelve) hours. [facility] labetaloL 200 mg tablet 0 07-29 00:00: 00 Yes [id number] 200mg Take 1 tablet by mouth every 12 (twelve) hours. [facility] labetaloL 200 mg tablet 0 07-29 00:00: 00 Yes [id number] 200mg Take 1 tablet by mouth every 12 (twelve) hours. [facility] labetaloL 200 mg tablet 07-29 00:00: 00 Yes [id number] 200mg Take 1 tablet by mouth every 12 (twelve) hours. [facility] labetaloL 200 mg tablet 07-29 00:00: 00 Yes [id number] 200mg Take 1 tablet by mouth every 12 (twelve) hours. [facility] labetaloL 200 mg tablet 07-29 00:00: 00 Yes [id number] 200mg Take 1 tablet by mouth every 12 (twelve) hours. [facility] labetaloL 200 mg tablet 07-29 00:00: 00 Yes [id number] 200mg Take 1 tablet by mouth every 12 (twelve) hours. [facility] labetaloL 200 mg tablet 07-29 00:00: 00 Yes [id number] 200mg Take 1 tablet by mouth every 12 (twelve) hours. [facility] KCL (KLOR-CON M20) tablet 40 mEq 07-25 06:15: 00 07-25 13:41 :00 No 40meq 40 mEq, Oral, DAILY, 2 doses, First dose on Mon07/25/22 at 0115, Last dose on Mon07/25/22 at 0900, Routine [facility] ferrous sulfate tablet 325 mg 07-25 01:00: 00 Yes 325mg 325 mg, Oral, BID, First dose on Mon07/24/22 at 2000, Until Discontinu ed, Routine [facility] ceFAZolin (ANCEF) 1,000 mg in [...]
D uration of Therapy: Other (see Comments) [facility] rho(D) immune globulin (RHOGAM) syringe 300 mcg 07-24 15:24: 51 Yes 300ug 300 mcg, Intramuscu lar, ONCE, For 1 dose, Conditiona l, Routine [facility] HYDROcodone -acetaminop hen (NORCO 5) 5-325 mg tablet 2 tablet 07-24 15:23: 27 Yes 2{tbl} 2 tablet, Oral, Q6HPRN, Starting on Mon07/24/22 at 1023, Until Discontinu ed, Routine, Pain (scale 7-10), Alternate with Ibuprofen [facility] HYDROcodone -acetaminop hen (NORCO 5) 5-325 mg tablet 1 tablet 07-24 15:23: 22 Yes 1{tbl} 1 tablet, Oral, Q6HPRN, Starting on Mon07/24/22 at 1023, Until Discontinu ed, Routine, Pain (scale 4-6), Alternate with Ibuprofen [facility] diphenhydrA MINE (BENADRYL) injection 25 mg 07-24 15:21: 28 Yes 25mg 25 mg, Slow IV Push, Q6HPRN, Starting on Mon07/24/22 at 1021, Until Discontinu ed, Routine, Itching [facility] diphenhydrA MINE (BENADRYL) tablet 25 mg 07-24 15:21: 28 Yes 25mg 25 mg, Oral, Q6HPRN, Starting on Mon07/24/22 at 1021, Until Discontinu ed, Routine, Sleep, Itching [facility] ondansetron (ZOFRAN (PF)) injection 4 mg 07-24 15:21: 28 Yes 4mg 4 mg, Slow IV Push, Q8HPRN, Starting on Mon07/24/22 at 1021, Until Discontinu ed, Routine, Nausea and Vomiting (N/V) [facility] bisacodyL (DULCOLAX) suppository 10 mg 07-24 15:21: 28 Yes 10mg 10 mg, Rectal, QDAILYPRN, Starting on Mon07/24/22 at 1021, Until Discontinu ed, Routine, Constipati on [facility] simethicone (GAS RELIEF (SIMETHICON E)) chewable tablet 160 mg 07-24 15:21: 28 Yes 160mg 160 mg, Oral, PC+HSPRN, Starting on Mon07/24/22 at 1021, Until Discontinu ed, Routine, Gas [facility] docusate (COLACE) capsule 200 mg 07-24 15:21: 28 Yes 200mg 200 mg, Oral, QDAILYPRN, Starting on Mon07/24/22 at 1021, Until Discontinu ed, Routine, Constipati on [facility] magnesium hydroxide (MILK OF MAGNESIA) 400 mg/5 mL suspension 30 mL 07-24 15:21: 28 Yes 30mL 30 mL, Oral, QDAILYPRN, Starting on Mon07/24/22 at 102, Until Discontinu ed, Routine, Constipati on [facility] lactated ringers IV infusion 1,000 mL 07-24 15:21: 28 07-24 16:25 :00 No 1000mL at 125 mL/hr, 1,000 mL, IV Infusion, PRN, 1 dose, Starting on Mon07/24/22 at 102, Until Discontinu ed, Routine [facility] 25/iron fum/folic/d betancur (-1 ORAL) 07-23 12:50: 40 07-23 00:00 :00 No Take by mouth. [facility] HYDROcodone -acetaminop hen (NORCO 5) 5-325 mg tablet 1 tablet 07-23 01:41: 26 07-25 01:40 :26 No 1{tbl} 1 tablet, Oral, Q6HPRN, Starting on Mon07/22/22 at 2040, Until Mon07/24/22 at 2039, Routine, Pain (scale 4-6) [facility] Nitrofurant oin&Nit. Macrocryst (MACROBID) 100 mg capsule 100 mg 07-23 01:00: 00 07-30 00:59 :00 No 100mg 100 mg, Oral, BID, 14 doses, First dose (after last modificati on) on Mon07/22/22 at 1999, Last dose on Mon07/29/22 at 08, Routine
Reason for Anti-Infec tive: Documented Infection< br>Documen brendan Infection Site: Urine
D uration of Therapy: 7 days [facility] Nitrofurant oin&Nit. Macrocryst (MACROBID) 100 mg capsule 100 mg 07-23 01:00: 00 07-30 00:59 :00 No 100mg 100 mg, Oral, BID, 14 doses, First dose (after last modificati on) on Mon07/22/22 at 1999, Last dose on Mon07/29/22 at 08, Routine
Reason for Anti-Infec tive: Documented Infection< br>Documen brendan Infection Site: Urine
D uration of Therapy: 7 days [facility] vitamin w/FA tablet 07-23 00:00: 00 Yes [id number] 1{tbl} Take 1 tablet by mouth in the morning. [facility] docusate 100 mg capsule 07-23 00:00: 00 Yes [id number] 200mg Take 2 capsules by mouth once daily as needed for Constipati on. [facility] ferrous sulfate 325 mg (65 mg iron) tablet 07-23 00:00: 00 Yes [id number] 325mg Take 1 tablet by mouth in the morning and 1 tablet in the evening. [facility] ibuprofen 600 mg tablet 07-23 00:00: 00 Yes [id number] 600mg Take 1 tablet by mouth every 6 (six) hours as needed (Pain). Take with food or milk. [facility] vitamin w/FA tablet 07-23 00:00: 00 Yes [id number] 1{tbl} Take 1 tablet by mouth in the morning. [facility] docusate 100 mg capsule 07-23 00:00: 00 Yes [id number] 200mg Take 2 capsules by mouth once daily as needed for Constipati on. [facility] ferrous sulfate 325 mg (65 mg iron) tablet 07-23 00:00: 00 Yes [id number] 325mg Take 1 tablet by mouth in the morning and 1 tablet in the evening. [facility] vitamin w/FA tablet 07-23 00:00: 00 Yes [id number] 1{tbl} Take 1 tablet by mouth in the morning. [facility] docusate 100 mg capsule 07-23 00:00: 00 Yes [id number] 200mg Take 2 capsules by mouth once daily as needed for Constipati on. [facility] ferrous sulfate 325 mg (65 mg iron) tablet 07-23 00:00: 00 Yes [id number] 325mg Take 1 tablet by mouth in the morning and 1 tablet in the evening. [facility] vitamin w/FA tablet 07-23 00:00: 00 Yes [id number] 1{tbl} Take 1 tablet by mouth in the morning. [facility] docusate 100 mg capsule 07-23 00:00: 00 Yes [id number] 200mg Take 2 capsules by mouth once daily as needed for Constipati on. [facility] ferrous sulfate 325 mg (65 mg iron) tablet 07-23 00:00: 00 Yes [id number] 325mg Take 1 tablet by mouth in the morning and 1 tablet in the evening. [facility] vitamin w/FA tablet 07-23 00:00: 00 Yes [id number] 1{tbl} Take 1 tablet by mouth in the morning. [facility] docusate 100 mg capsule 07-23 00:00: 00 Yes [id number] 200mg Take 2 capsules by mouth once daily as needed for Constipati on. [facility] ferrous sulfate 325 mg (65 mg iron) tablet 07-23 00:00: 00 Yes [id number] 325mg Take 1 tablet by mouth in the morning and 1 tablet in the evening. [facility] vitamin w/FA tablet 07-23 00:00: 00 Yes [id number] 1{tbl} Take 1 tablet by mouth in the morning. [facility] docusate 100 mg capsule 07-23 00:00: 00 Yes [id number] 200mg Take 2 capsules by mouth once daily as needed for Constipati on. [facility] ferrous sulfate 325 mg (65 mg iron) tablet 07-23 00:00: 00 Yes [id number] 325mg Take 1 tablet by mouth in the morning and 1 tablet in the evening. [facility] vitamin w/FA tablet 07-23 00:00: 00 Yes [id number] 1{tbl} Take 1 tablet by mouth in the morning. [facility] docusate 100 mg capsule 07-23 00:00: 00 Yes [id number] 200mg Take 2 capsules by mouth once daily as needed for Constipati on. [facility] ferrous sulfate 325 mg (65 mg iron) tablet 07-23 00:00: 00 Yes [id number] 325mg Take 1 tablet by mouth in the morning and 1 tablet in the evening. [facility] vitamin w/FA tablet 07-23 00:00: 00 Yes [id number] 1{tbl} Take 1 tablet by mouth in the morning. [facility] docusate 100 mg capsule 07-23 00:00: 00 Yes [id number] 200mg Take 2 capsules by mouth once daily as needed for Constipati on. [facility] ferrous sulfate 325 mg (65 mg iron) tablet 07-23 00:00: 00 Yes [id number] 325mg Take 1 tablet by mouth in the morning and 1 tablet in the evening. [facility] vitamin w/FA tablet 07-23 00:00: 00 Yes [id number] 1{tbl} Take 1 tablet by mouth in the morning. [facility] docusate 100 mg capsule 07-23 00:00: 00 Yes [id number] 200mg Take 2 capsules by mouth once daily as needed for Constipati on. [facility] ferrous sulfate 325 mg (65 mg iron) tablet 07-23 00:00: 00 Yes [id number] 325mg Take 1 tablet by mouth in the morning and 1 tablet in the evening. [facility] vitamin w/FA tablet 07-23 00:00: 00 Yes [id number] 1{tbl} Take 1 tablet by mouth in the morning. [facility] docusate 100 mg capsule 07-23 00:00: 00 Yes [id number] 200mg Take 2 capsules by mouth once daily as needed for Constipati on. [facility] ferrous sulfate 325 mg (65 mg iron) tablet 07-23 00:00: 00 Yes [id number] 325mg Take 1 tablet by mouth in the morning and 1 tablet in the evening. [facility] vitamin w/FA tablet 07-23 00:00: 00 Yes [id number] 1{tbl} Take 1 tablet by mouth in the morning. [facility] docusate 100 mg capsule 07-23 00:00: 00 Yes [id number] 200mg Take 2 capsules by mouth once daily as needed for Constipati on. [facility] ferrous sulfate 325 mg (65 mg iron) tablet 07-23 00:00: 00 Yes [id number] 325mg Take 1 tablet by mouth in the morning and 1 tablet in the evening. [facility] vitamin w/FA tablet 07-23 00:00: 00 Yes [id number] 1{tbl} Take 1 tablet by mouth in the morning. [facility] docusate 100 mg capsule 07-23 00:00: 00 Yes [id number] 200mg Take 2 capsules by mouth once daily as needed for Constipati on. [facility] ferrous sulfate 325 mg (65 mg iron) tablet 07-23 00:00: 00 Yes [id number] 325mg Take 1 tablet by mouth in the morning and 1 tablet in the evening. [facility] vitamin w/FA tablet 07-23 00:00: 00 Yes [id number] 1{tbl} Take 1 tablet by mouth in the morning. [facility] docusate 100 mg capsule 0 07-23 00:00: 00 Yes [id number] 200mg Take 2 capsules by mouth once daily as needed for Constipati on. [facility] ferrous sulfate 325 mg (65 mg iron) tablet 0 07-23 00:00: 00 Yes [id number] 325mg Take 1 tablet by mouth in the morning and 1 tablet in the evening. [facility] vitamin w/FA tablet 0 07-23 00:00: 00 Yes [id number] 1{tbl} Take 1 tablet by mouth in the morning. [facility] docusate 100 mg capsule 07-23 00:00: 00 Yes [id number] 200mg Take 2 capsules by mouth once daily as needed for Constipati on. [facility] ferrous sulfate 325 mg (65 mg iron) tablet 07-23 00:00: 00 Yes [id number] 325mg Take 1 tablet by mouth in the morning and 1 tablet in the evening. [facility] vitamin w/FA tablet 07-23 00:00: 00 Yes [id number] 1{tbl} Take 1 tablet by mouth in the morning. [facility] docusate 100 mg capsule 0 07-23 00:00: 00 Yes [id number] 200mg Take 2 capsules by mouth once daily as needed for Constipati on. [facility] ferrous sulfate 325 mg (65 mg iron) tablet 0 07-23 00:00: 00 Yes [id number] 325mg Take 1 tablet by mouth in the morning and 1 tablet in the evening. [facility] vitamin w/FA tablet 0 07-23 00:00: 00 Yes [id number] 1{tbl} Take 1 tablet by mouth in the morning. [facility] docusate 100 mg capsule 0 07-23 00:00: 00 Yes [id number] 200mg Take 2 capsules by mouth once daily as needed for Constipati on. [facility] ferrous sulfate 325 mg (65 mg iron) tablet 07-23 00:00: 00 Yes [id number] 325mg Take 1 tablet by mouth in the morning and 1 tablet in the evening. [facility] vitamin w/FA tablet 07-23 00:00: 00 Yes [id number] 1{tbl} Take 1 tablet by mouth in the morning. [facility] docusate 100 mg capsule 07-23 00:00: 00 Yes [id number] 200mg Take 2 capsules by mouth once daily as needed for Constipati on. [facility] ferrous sulfate 325 mg (65 mg iron) tablet 07-23 00:00: 00 Yes [id number] 325mg Take 1 tablet by mouth in the morning and 1 tablet in the evening. [facility] vitamin w/FA tablet 07-23 00:00: 00 Yes [id number] 1{tbl} Take 1 tablet by mouth in the morning. [facility] docusate 100 mg capsule 07-23 00:00: 00 Yes [id number] 200mg Take 2 capsules by mouth once daily as needed for Constipati on. [facility] ferrous sulfate 325 mg (65 mg iron) tablet 07-23 00:00: 00 Yes [id number] 325mg Take 1 tablet by mouth in the morning and 1 tablet in the evening. [facility] HYDROcodone -acetaminop hen 5-325 mg tablet 07-23 00:00: 00 07-31 04:59 :00 No [id number] 1{tbl} Take 1 tablet by mouth every 6 (six) hours as needed (Pain scale above 4) for up to 7 days. Do not exceed 3 grams of acetaminop hen in 24 hours. Indication s: acute pain [facility] ibuprofen 600 mg tablet 07-23 00:00: 00 07-24 00:00 :00 No [id number] 600mg Take 1 tablet by mouth every 6 (six) hours as needed (Pain). Take with food or milk. [facility] HYDROcodone -acetaminop hen 5-325 mg tablet 07-23 00:00: 00 07-24 00:00 :00 No [id number] 1{tbl} Take 1 tablet by mouth every 6 (six) hours as needed (Pain scale above 4) for up to 7 days. Do not exceed 3 grams of acetaminop hen in 24 hours. Indication s: acute pain [facility] ibuprofen (IBU) tablet 600 mg 07-22 23:00: 00 Yes 600mg 600 mg, Oral, Q6H, First dose on Mon07/22/22 at 1800, Until Discontinu ed, Routine [facility] ibuprofen (IBU) tablet 600 mg 07-22 23:00: 00 Yes 600mg 600 mg, Oral, Q6H, First dose on Mon07/22/22 at 1800, Until Discontinu ed, Routine [facility] acetaminoph en (TYLENOL) tablet 650 mg 07-22 20:00: 00 Yes 650mg 650 mg, Oral, Q6HPRN, Starting on Mon07/22/22 at 1500, Until Discontinu ed, Routine, Pain [facility] acetaminoph en (TYLENOL) tablet 650 mg 07-22 20:00: 00 Yes 650mg 650 mg, Oral, Q6HPRN, Starting on Mon07/22/22 at 1500, Until Discontinu ed, Routine, Pain [facility] acetaminoph en ADULT (OFIRMEV) injection 1,000 mg 07-22 02:00: 00 07-22 15:02 :00 No 1000mg 1,000 mg, IV Infusion, at 400 mL/hr Administer over 15 Minutes, Q6H, 3 doses, First dose (after last modificati on) on Mon07/21/22 at 2100, Last dose on Mon07/22/22 at 0600, Routine
Indicatio n: Perioperat chris Patient [facility] ketorolac (TORADOL) injection 30 mg 07-21 23:00: 00 07-22 16:43 :00 No 30mg 30 mg, Slow IV Push, Q6H, 4 doses, First dose on Mon07/21/22 at 1800, Last dose on Mon07/22/22 at 1200, Routine [facility] lactated ringers IV infusion 1,000 mL 07-21 21:30: 00 07-21 20:12 :06 No 1000mL at 125 mL/hr, 1,000 mL, IV Infusion, ONCE, 1 dose, On Mon07/21/22 at 1630, Routine [facility] diphenhydrA MINE (BENADRYL) injection 25 mg 07-21 20:34: 05 Yes 25mg 25 mg, Slow IV Push, Q6HPRN, Starting on Mon07/21/22 at 1534, Until Discontinu ed, Routine, Itching [facility] diphenhydrA MINE (BENADRYL) tablet 25 mg 07-21 20:34: 05 Yes 25mg 25 mg, Oral, Q6HPRN, Starting on Mon07/21/22 at 1534, Until Discontinu ed, Routine, Sleep, Itching [facility] ondansetron (ZOFRAN (PF)) injection 4 mg 07-21 20:34: 05 Yes 4mg 4 mg, Slow IV Push, Q8HPRN, Starting on Mon07/21/22 at 1534, Until Discontinu ed, Routine, Nausea and Vomiting (N/V) [facility] bisacodyL (DULCOLAX) suppository 10 mg 07-21 20:34: 05 Yes 10mg 10 mg, Rectal, QDAILYPRN, Starting on Mon07/21/22 at 1534, Until Discontinu ed, Routine, Constipati on [facility] simethicone (GAS RELIEF (SIMETHICON E)) chewable tablet 160 mg 07-21 20:34: 05 Yes 160mg 160 mg, Oral, PC+HSPRN, Starting on Mon07/21/22 at 1534, Until Discontinu ed, Routine, Gas [facility] docusate (COLACE) capsule 200 mg 07-21 20:34: 05 Yes 200mg 200 mg, Oral, QDAILYPRN, Starting on Mon07/21/22 at 1534, Until Discontinu ed, Routine, Constipati on [facility] magnesium hydroxide (MILK OF MAGNESIA) 400 mg/5 mL suspension 30 mL 07-21 20:34: 05 Yes 30mL 30 mL, Oral, QDAILYPRN, Starting on Mon07/21/22 at 1534, Until Discontinu ed, Routine, Constipati on [facility] diphenhydrA MINE (BENADRYL) injection 25 mg 07-21 20:34: 05 Yes 25mg 25 mg, Slow IV Push, Q6HPRN, Starting on Mon07/21/22 at 1534, Until Discontinu ed, Routine, Itching [facility] diphenhydrA MINE (BENADRYL) tablet 25 mg 07-21 20:34: 05 Yes 25mg 25 mg, Oral, Q6HPRN, Starting on Mon07/21/22 at 1534, Until Discontinu ed, Routine, Sleep, Itching [facility] ondansetron (ZOFRAN (PF)) injection 4 mg 07-21 20:34: 05 Yes 4mg 4 mg, Slow IV Push, Q8HPRN, Starting on Mon07/21/22 at 1534, Until Discontinu ed, Routine, Nausea and Vomiting (N/V) [facility] bisacodyL (DULCOLAX) suppository 10 mg 07-21 20:34: 05 Yes 10mg 10 mg, Rectal, QDAILYPRN, Starting on Mon07/21/22 at 1534, Until Discontinu ed, Routine, Constipati on [facility] simethicone (GAS RELIEF (SIMETHICON E)) chewable tablet 160 mg 07-21 20:34: 05 Yes 160mg 160 mg, Oral, PC+HSPRN, Starting on Mon07/21/22 at 1534, Until Discontinu ed, Routine, Gas [facility] docusate (COLACE) capsule 200 mg 07-21 20:34: 05 Yes 200mg 200 mg, Oral, QDAILYPRN, Starting on Mon07/21/22 at 1534, Until Discontinu ed, Routine, Constipati on [facility] magnesium hydroxide (MILK OF MAGNESIA) 400 mg/5 mL suspension 30 mL 07-21 20:34: 05 Yes 30mL 30 mL, Oral, QDAILYPRN, Starting on Mon07/21/22 at 1534, Until Discontinu ed, Routine, Constipati on [facility] lactated ringers IV infusion 1,000 mL 07-21 20:34: 05 07-22 00:14 :00 No 1000mL at 125 mL/hr, 1,000 mL, IV Infusion, PRN, 1 dose, Starting on Mon07/21/22 at 1534, Until Discontinu ed, Routine [facility] ceFAZolin (ANCEF) 2,000 mg in NaCl 0.9% (NS) 100 mL MINI-BAG 07-21 19:30: 00 07-21 19:07 :00 No 2000mg 2,000 mg, IV Piggyback, ONCE, 1 dose, On Mon07/21/22 at 1430, Administer over 30 Minutes, 100 mL
Reas on for Anti-Infec tive: Surgical Prophylaxi s
Surgi lottie Prophylaxi s: Abdominal< br>Duratio n of therapy: within 24 hours of surgery [facility] terbutaline (BRETHINE) injection 0.25 mg 07-21 16:37: 33 07-21 20:41 :35 No .25mg 0.25 mg, Subcutaneo us, Q15MIN PRN, 3 doses, Starting on Mon07/21/22 at 1137, Until Alissa 07/21/22 at 1541, Routine, Tachysysto le with NRFHT [facility] sodium citrate-cit diego acid (BICITRA) 500-334 mg/5 mL solution 30 mL 07-21 16:32: 59 07-21 18:32 :00 No 30mL 30 mL, Oral, PRE-PROCED URE ONCE, 1 dose, Starting on Mon07/21/22 at 1132, Until Discontinu ed, Routine, Surgery/Pr ocedure [facility] lactated ringers IV infusion 500 mL 07-21 16:32: 59 07-21 20:41 :35 No 500mL at 999 mL/hr, 500 mL, IV Infusion, PRN - SEE INSTRUCTIO NS, Starting on Alissa 07/21/22 at 1132, Until Alissa 07/21/22 at 1541, Routine [facility] [id number] IV infusion 1,000 mL 07-21 16:32: 59 07-21 20:41 :35 No 1000mL at 1-125 mL/hr, IV Infusion, TITRATE, Starting on Alissa 07/21/22 at 1132, Until Alissa 07/21/22 at 1541, Routine [facility] 25/iron fum/folic/d betancur (- ORAL) 07-21 11:32: 19 Yes Take by mouth. [facility] Nitrofurant oin&Nit. Macrocryst 100 mg capsule 07-19 00:00: 00 Yes [id number] 100mg Take 1 capsule by mouth in the morning and 1 capsule in the evening. [facility] Nitrofurant oin&Nit. Macrocryst 100 mg capsule 07-19 00:00: 00 Yes [id number] 100mg Take 1 capsule by mouth in the morning and 1 capsule in the evening. [facility] Nitrofurant oin&Nit. Macrocryst 100 mg capsule 07-19 00:00: 00 Yes [id number] 100mg Take 1 capsule by mouth in the morning and 1 capsule in the evening. [facility] Nitrofurant oin&Nit. Macrocryst 100 mg capsule 07-19 00:00: 00 07-24 00:00 :00 No [id number] 100mg Take 1 capsule by mouth in the morning and 1 capsule in the evening. [facility] 25/iron fum/folic/d betancur (-1 ORAL) 07-17 12:50: 57 Yes Take by mouth. [facility] 25/iron fum/folic/d betancur (-1 ORAL) 07-17 12:50: 57 Yes Take by mouth. [facility] 25/iron fum/folic/d betancur (-1 ORAL) 07-11 03:19: 16 Yes Take by mouth. [facility] 25/iron fum/folic/d betancur (-1 ORAL) 07-11 03:19: 16 Yes Take by mouth. [facility] 25/iron fum/folic/d betancur (-1 ORAL) 07-11 03:19: 16 Yes Take by mouth. [facility] terbutaline (BRETHINE) injection 0.25 mg 07-06 08:45: 00 07-06 07:59 :00 No .25mg 0.25 mg, Subcutaneo us, ONCE, 1 dose, On Mon07/06/22 at 0345, Routine [facility] NaCl 0.9% (NS) bolus infusion 1,000 mL 07-06 06:30: 00 07-06 06:30 :27 No 1000mL at 999 mL/hr, 1,000 mL, IV Infusion, ONCE, 1 dose, On Mon07/06/22 at 0130, STAT [facility] 25/iron fum/folic/d betancur (-1 ORAL) 07-06 05:26: 51 Yes Take by mouth. [facility] 25/iron fum/folic/d betancur (-1 ORAL) 07-06 05:26: 51 Yes Take by mouth. [facility] 25/iron fum/folic/d betancur (-1 ORAL) 07-06 05:26: 51 Yes Take by mouth. [facility] metroNIDAZO LE 500 mg tablet 04-14 00:00: 00 04-22 05:59 :00 No [id number] 500mg Take 1 tablet by mouth in the morning and 1 tablet in the evening. Do all this for 7 days. [facility] metroNIDAZO LE 500 mg tablet 2023-0 2-16 00:00: 00 04-22 05:59 :00 No [id number] 500mg Take 1 tablet by mouth in the morning and 1 tablet in the evening. Do all this for 7 days. [facility] metroNIDAZO LE 500 mg tablet 2022-0 2-16 00:00: 00 04-22 05:59 :00 No [id number] 500mg Take 1 tablet by mouth in the morning and 1 tablet in the evening. Do all this for 7 days. [facility] metroNIDAZO LE 500 mg tablet 2022-0 2-16 00:00: 00 04-22 05:59 :00 No [id number] 500mg Take 1 tablet by mouth in the morning and 1 tablet in the evening. Do all this for 7 days. [facility] metroNIDAZO LE 500 mg tablet 2022-0 2-16 00:00: 00 04-22 05:59 :00 No [id number] 500mg Take 1 tablet by mouth in the morning and 1 tablet in the evening. Do all this for 7 days. [facility] hydroxyprog esterone(PF ) (KATHLEEN AUTO-INJECT OR) 275 mg/1.1 mL injection 275 mg 03-31 06:00: 00 07-21 04:59 :00 No [id number] 275mg [facility] hydroxyprog esterone(PF ) (KATHLEEN AUTO-INJECT OR) 275 mg/1.1 mL injection 275 mg 03-31 06:00: 00 07-21 04:59 :00 No [id number] 275mg [facility] hydroxyprog esterone(PF ) (KATHLEEN AUTO-INJECT OR) 275 mg/1.1 mL injection 275 mg 03-31 06:00: 00 07-21 04:59 :00 No [id number] 275mg 275 mg, Subcutaneo us, QWEEKLY, 16 doses, First dose on Alissa 03/31/22 at 0000, Last dose on Alissa 07/14/22 at 0000, Routine [facility] hydroxyprog esterone(PF ) (KATHLEEN AUTO-INJECT OR) 275 mg/1.1 mL injection 275 mg 3-0 2-02 06:00: 00 07-21 04:59 :00 No [id number] 275mg [facility] hydroxyprog esterone(PF ) (KATHLEEN AUTO-INJECT OR) 275 mg/1.1 mL injection 275 mg 3-0 2-02 06:00: 00 07-21 04:59 :00 No [id number] 275mg 275 mg, Subcutaneo us, QWEEKLY, 16 doses, First dose on Alissa 03/31/22 at 0000, Last dose on Alissa 07/14/22 at 0000, Routine [facility] hydroxyprog esterone(PF ) (KATHLEEN AUTO-INJECT OR) 275 mg/1.1 mL injection 275 mg 3-0 2-02 06:00: 00 07-21 04:59 :00 No [id number] 275mg [facility] hydroxyprog esterone(PF ) (KATHLEEN AUTO-INJECT OR) 275 mg/1.1 mL injection 275 mg 3-0 2-02 06:00: 00 07-21 04:59 :00 No [id number] 275mg [facility] hydroxyprog esterone(PF ) (KATHLEEN AUTO-INJECT OR) 275 mg/1.1 mL injection 275 mg 3-0 2-02 06:00: 00 07-21 04:59 :00 No [id number] 275mg [facility] hydroxyprog esterone(PF ) (KATHLEEN AUTO-INJECT OR) 275 mg/1.1 mL injection 275 mg 3-0 2-02 06:00: 00 07-21 04:59 :00 No [id number] 275mg [facility] hydroxyprog esterone(PF ) (KATHLEEN AUTO-INJECT OR) 275 mg/1.1 mL injection 275 mg 3-0 2-02 06:00: 00 07-21 04:59 :00 No [id number] 275mg [facility] hydroxyprog esterone(PF ) (KATHLEEN AUTO-INJECT OR) 275 mg/1.1 mL injection 275 mg 3-0 2- 06:00: 00 07-21 04:59 :00 No [id number] 275mg 275 mg, Subcutaneo us, QWEEKLY, 16 doses, First dose on Mon03/31/22 at 0000, Last dose on Mon07/14/22 at 0000, Routine [facility] hydroxyprog esterone(PF ) (KATHLEEN AUTO-INJECT OR) 275 mg/1.1 mL injection 275 mg 3-0 2- 06:00: 00 07-21 04:59 :00 No [id number] 275mg [facility] hydroxyprog esterone(PF ) (KATHLEEN AUTO-INJECT OR) 275 mg/1.1 mL injection 275 mg 3-0 2- 06:00: 00 07-21 04:59 :00 No [id number] 275mg [facility] hydroxyprog esterone(PF ) (KATHLEEN AUTO-INJECT OR) 275 mg/1.1 mL injection 275 mg 3-0 2- 06:00: 00 07-21 04:59 :00 No [id number] 275mg [facility] hydroxyprog esterone(PF ) (KATHLEEN AUTO-INJECT OR) 275 mg/1.1 mL injection 275 mg 3-0 2- 06:00: 00 07-21 04:59 :00 No [id number] 275mg 275 mg, Subcutaneo us, QWEEKLY, 16 doses, First dose on Mon03/31/22 at 0000, Last dose on Mon07/14/22 at 0000, Routine [facility] hydroxyprog esterone(PF ) (KATHLEEN AUTO-INJECT OR) 275 mg/1.1 mL injection 275 mg 3-0 2- 06:00: 00 07-21 04:59 :00 No [id number] 275mg [facility] hydroxyprog esterone(PF ) (KATHLEEN AUTO-INJECT OR) 275 mg/1.1 mL injection 275 mg 3-0 2-02 06:00: 00 07-21 04:59 :00 No [id number] 275mg 275 mg, Subcutaneo us, QWEEKLY, 16 doses, First dose on Alissa 03/31/22 at 0000, Last dose on Alissa 07/14/22 at 0000, Routine [facility] hydroxyprog esterone(PF ) (KATHLEEN AUTO-INJECT OR) 275 mg/1.1 mL injection 275 mg 2023-0 2-02 06:00: 00 07-21 04:59 :00 No [id number] 275mg [facility] hydroxyprog esterone(PF ) (KATHLEEN AUTO-INJECT OR) 275 mg/1.1 mL injection 275 mg 3-0 2-02 06:00: 00 07-21 04:59 :00 No [id number] 275mg 275 mg, Subcutaneo us, QWEEKLY, 16 doses, First dose on Alissa 03/31/22 at 0000, Last dose on Alissa 07/14/22 at 0000, Routine [facility] hydroxyprog esterone(PF ) (KATHLEEN AUTO-INJECT OR) 275 mg/1.1 mL injection 275 mg 3-0 2-02 06:00: 00 07-21 04:59 :00 No [id number] 275mg [facility] hydroxyprog esterone(PF ) (KATHLEEN AUTO-INJECT OR) 275 mg/1.1 mL injection 275 mg 3-0 2-02 06:00: 00 07-21 04:59 :00 No [id number] 275mg 275 mg, Subcutaneo us, QWEEKLY, 16 doses, First dose on Alissa 03/31/22 at 0000, Last dose on Alissa 07/14/22 at 0000, Routine [facility] hydroxyprog esterone(PF ) (KATHLEEN AUTO-INJECT OR) 275 mg/1.1 mL injection 275 mg 3-0 2-02 06:00: 00 07-21 04:59 :00 No [id number] 275mg [facility] hydroxyprog esterone(PF ) (KATHLEEN AUTO-INJECT OR) 275 mg/1.1 mL injection 275 mg 3-0 2-02 06:00: 00 07-21 04:59 :00 No [id number] 275mg [facility] hydroxyprog esterone(PF ) (KATHLEEN AUTO-INJECT OR) 275 mg/1.1 mL injection 275 mg 3-0 2-02 06:00: 00 07-21 04:59 :00 No [id number] 275mg 275 mg, Subcutaneo us, QWEEKLY, 16 doses, First dose on Alissa 03/31/22 at 0000, Last dose on Alissa 07/14/22 at 0000, Routine [facility] hydroxyprog esterone(PF ) (KATHLEEN AUTO-INJECT OR) 275 mg/1.1 mL injection 275 mg 3-0 2-02 06:00: 00 07-21 04:59 :00 No [id number] 275mg [facility] hydroxyprog esterone(PF ) (KATHLEEN AUTO-INJECT OR) 275 mg/1.1 mL injection 275 mg 3-0 2-02 06:00: 00 07-21 04:59 :00 No [id number] 275mg 275 mg, Subcutaneo us, QWEEKLY, 16 doses, First dose on Alissa 03/31/22 at 0000, Last dose on Alissa 07/14/22 at 0000, Routine [facility] hydroxyprog esterone(PF ) (KATHLEEN AUTO-INJECT OR) 275 mg/1.1 mL injection 275 mg 3-0 2-02 06:00: 00 07-21 04:59 :00 No [id number] 275mg [facility] hydroxyprog esterone(PF ) (KATHLEEN AUTO-INJECT OR) 275 mg/1.1 mL injection 275 mg 3-0 2-02 06:00: 00 07-21 04:59 :00 No [id number] 275mg 275 mg, Subcutaneo us, QWEEKLY, 16 doses, First dose on Alissa 03/31/22 at 0000, Last dose on Alissa 07/14/22 at 0000, Routine [facility] hydroxyprog esterone(PF ) (KATHLEEN AUTO-INJECT OR) 275 mg/1.1 mL injection 275 mg 2023-0 2-02 06:00: 00 07-21 04:59 :00 No [id number] 275mg [facility] hydroxyprog esterone(PF ) (KATHLEEN AUTO-INJECT OR) 275 mg/1.1 mL injection 275 mg 2022-0 2-02 06:00: 00 07-21 04:59 :00 No [id number] 275mg 275 mg, Subcutaneo us, QWEEKLY, 16 doses, First dose on Alissa 03/31/22 at 0000, Last dose on Alissa 07/14/22 at 0000, Routine [facility] hydroxyprog esterone(PF ) (KATHLEEN AUTO-INJECT OR) 275 mg/1.1 mL injection 275 mg 2022-0 2-02 06:00: 00 07-21 04:59 :00 No [id number] 275mg [facility] hydroxyprog esterone(PF ) (KATHLEEN AUTO-INJECT OR) 275 mg/1.1 mL injection 275 mg 2022-0 2-02 06:00: 00 07-21 04:59 :00 No [id number] 275mg 275 mg, Subcutaneo us, QWEEKLY, 16 doses, First dose on Alissa 03/31/22 at 0000, Last dose on Alissa 07/14/22 at 0000, Routine [facility] hydroxyprog esterone(PF ) (KATHLEEN AUTO-INJECT OR) 275 mg/1.1 mL injection 275 mg 2022-0 2-02 06:00: 00 07-21 04:59 :00 No [id number] 275mg [facility] hydroxyprog esterone(PF ) (KATHLEEN AUTO-INJECT OR) 275 mg/1.1 mL injection 275 mg 3-0 2-02 06:00: 00 07-21 04:59 :00 No [id number] 275mg 275 mg, Subcutaneo us, QWEEKLY, 16 doses, First dose on Alissa 03/31/22 at 0000, Last dose on Alissa 07/14/22 at 0000, Routine [facility] hydroxyprog esterone(PF ) (KATHLEEN AUTO-INJECT OR) 275 mg/1.1 mL injection 275 mg 2022-0 2-02 06:00: 00 07-21 04:59 :00 No [id number] 275mg [facility] hydroxyprog esterone(PF ) (KATHLEEN AUTO-INJECT OR) 275 mg/1.1 mL injection 275 mg 2023-0 2-02 06:00: 00 07-21 04:59 :00 No [id number] 275mg [facility] hydroxyprog esterone(PF ) (KATHLEEN AUTO-INJECT OR) 275 mg/1.1 mL injection 275 mg 2023-0 2-02 06:00: 00 07-21 04:59 :00 No [id number] 275mg [facility] hydroxyprog esterone(PF ) (KATHLEEN AUTO-INJECT OR) 275 mg/1.1 mL injection 275 mg 2023-0 2-02 06:00: 00 07-21 04:59 :00 No [id number] 275mg [facility] hydroxyprog esterone(PF ) (KATHLEEN AUTO-INJECT OR) 275 mg/1.1 mL injection 275 mg 3-0 2-02 06:00: 00 07-21 04:59 :00 No [id number] 275mg [facility] hydroxyprog esterone(PF ) (KATHLEEN AUTO-INJECT OR) 275 mg/1.1 mL injection 275 mg 3-0 2-02 06:00: 00 07-21 04:59 :00 No [id number] 275mg [facility] hydroxyprog esterone(PF ) (KATHLEEN AUTO-INJECT OR) 275 mg/1.1 mL injection 275 mg 3-0 2-02 06:00: 00 07-21 04:59 :00 No [id number] 275mg [facility] hydroxyprog esterone(PF ) (KATHLEEN AUTO-INJECT OR) 275 mg/1.1 mL injection 275 mg 2023-0 2-02 06:00: 00 07-21 04:59 :00 No [id number] 275mg [facility] hydroxyprog esterone(PF ) (KATHLEEN AUTO-INJECT OR) 275 mg/1.1 mL injection 275 mg 3-0 2-02 06:00: 00 07-21 04:59 :00 No [id number] 275mg [facility] hydroxyprog esterone(PF ) (KATHLEEN AUTO-INJECT OR) 275 mg/1.1 mL injection 275 mg 3-0 2-02 06:00: 00 07-21 04:59 :00 No [id number] 275mg [facility] hydroxyprog esterone(PF ) (KATHLEEN AUTO-INJECT OR) 275 mg/1.1 mL injection 275 mg 2022-0 2-02 06:00: 00 07-21 04:59 :00 No [id number] 275mg [facility] hydroxyprog esterone(PF ) (KATHLEEN AUTO-INJECT OR) 275 mg/1.1 mL injection 275 mg 0 03-24 16:45: 00 03-24 15:59 :00 No [id number] 275mg [facility] hydroxyprog esterone(PF ) (KATHLEEN AUTO-INJECT OR) 275 mg/1.1 mL injection 275 mg 0 03-24 16:45: 00 03-24 15:59 :00 No [id number] 275mg 275 mg, Subcutaneo us, ONCE, 1 dose, On Alissa 03/24/22 at 1045, Routine [facility] hydroxyprog esterone,PF , 275 mg/1.1 mL injection 2022-0 - 00:00: 00 Yes 275mg inject 1.1 mL under the skin weekly. [facility] hydroxyprog esterone,PF , 275 mg/1.1 mL injection 2022-0 - 00:00: 00 Yes 275mg inject 1.1 mL under the skin weekly. [facility] hydroxyprog esterone,PF , 275 mg/1.1 mL injection 3-0 - 00:00: 00 Yes [id number] 275mg inject 1.1 mL under the skin weekly. [facility] hydroxyprog esterone,PF , 275 mg/1.1 mL injection 0 03-07 00:00: 00 Yes 275mg inject 1.1 mL under the skin weekly. [facility] hydroxyprog esterone,PF , 275 mg/1.1 mL injection 0 03-07 00:00: 00 Yes [id number] 275mg inject 1.1 mL under the skin weekly. [facility] hydroxyprog esterone,PF , 275 mg/1.1 mL injection 0 03-07 00:00: 00 Yes 275mg inject 1.1 mL under the skin weekly. [facility] hydroxyprog esterone,PF , 275 mg/1.1 mL injection 0 03-07 00:00: 00 Yes [id number] 275mg inject 1.1 mL under the skin weekly. [facility] hydroxyprog esterone,PF , 275 mg/1.1 mL injection 2022-0 03-07 00:00: 00 Yes 275mg inject 1.1 mL under the skin weekly. [facility] hydroxyprog esterone,PF , 275 mg/1.1 mL injection 0 03-07 00:00: 00 Yes [id number] 275mg inject 1.1 mL under the skin weekly. [facility] hydroxyprog esterone,PF , 275 mg/1.1 mL injection 0 03-07 00:00: 00 Yes 275mg inject 1.1 mL under the skin weekly. [facility] hydroxyprog esterone,PF , 275 mg/1.1 mL injection 0 03-07 00:00: 00 Yes [id number] 275mg inject 1.1 mL under the skin weekly. [facility] hydroxyprog esterone,PF , 275 mg/1.1 mL injection 2022-0 03-07 00:00: 00 Yes 275mg inject 1.1 mL under the skin weekly. [facility] hydroxyprog esterone,PF , 275 mg/1.1 mL injection 2022-0 03-07 00:00: 00 Yes [id number] 275mg inject 1.1 mL under the skin weekly. [facility] hydroxyprog esterone,PF , 275 mg/1.1 mL injection 3-0 03-07 00:00: 00 Yes 275mg inject 1.1 mL under the skin weekly. [facility] hydroxyprog esterone,PF , 275 mg/1.1 mL injection 3-0 03-07 00:00: 00 Yes [id number] 275mg inject 1.1 mL under the skin weekly. [facility] hydroxyprog esterone,PF , 275 mg/1.1 mL injection 2022-0 03-07 00:00: 00 Yes 275mg inject 1.1 mL under the skin weekly. [facility] , 275 mg/1.1 mL injection 3-0 03-07 00:00: 00 Yes [id number] 275mg inject 1.1 mL under the skin weekly. [facility] hydroxyprog esterone,PF , 275 mg/1.1 mL injection 0 03-07 00:00: 00 Yes 275mg inject 1.1 mL under the skin weekly. [facility] hydroxyprog esterone,PF , 275 mg/1.1 mL injection 0 03-07 00:00: 00 Yes [id number] 275mg inject 1.1 mL under the skin weekly. [facility] hydroxyprog esterone,PF , 275 mg/1.1 mL injection 0 03-07 00:00: 00 Yes 275mg inject 1.1 mL under the skin weekly. [facility] hydroxyprog esterone,PF , 275 mg/1.1 mL injection 2022-0 03-07 00:00: 00 Yes [id number] 275mg inject 1.1 mL under the skin weekly. [facility] hydroxyprog esterone,PF , 275 mg/1.1 mL injection 3-0 03-07 00:00: 00 Yes 275mg inject 1.1 mL under the skin weekly. [facility] hydroxyprog esterone,PF , 275 mg/1.1 mL injection 2022-0 03-07 00:00: 00 Yes [id number] 275mg inject 1.1 mL under the skin weekly. [facility] hydroxyprog esterone,PF , 275 mg/1.1 mL injection 3-0 03-07 00:00: 00 Yes 275mg inject 1.1 mL under the skin weekly. [facility] hydroxyprog esterone,PF , 275 mg/1.1 mL injection 3-0 03-07 00:00: 00 Yes [id number] 275mg inject 1.1 mL under the skin weekly. [facility] hydroxyprog esterone,PF , 275 mg/1.1 mL injection 3-0 03-07 00:00: 00 Yes 275mg inject 1.1 mL under the skin weekly. [facility] hydroxyprog esterone,PF , 275 mg/1.1 mL injection 2022-0 03-07 00:00: 00 Yes [id number] 275mg inject 1.1 mL under the skin weekly. [facility] hydroxyprog esterone,PF , 275 mg/1.1 mL injection 2022-0 03-07 00:00: 00 Yes 275mg inject 1.1 mL under the skin weekly. [facility] hydroxyprog esterone,PF , 275 mg/1.1 mL injection 2022-0 03-07 00:00: 00 Yes [id number] 275mg inject 1.1 mL under the skin weekly. [facility] hydroxyprog esterone,PF , 275 mg/1.1 mL injection 3-0 03-07 00:00: 00 Yes 275mg inject 1.1 mL under the skin weekly. [facility] hydroxyprog esterone,PF , 275 mg/1.1 mL injection 3-0 03-07 00:00: 00 Yes [id number] 275mg inject 1.1 mL under the skin weekly. [facility] hydroxyprog esterone,PF , 275 mg/1.1 mL injection 3-0 03-07 00:00: 00 Yes 275mg inject 1.1 mL under the skin weekly. [facility] hydroxyprog esterone,PF , 275 mg/1.1 mL injection 3-0 03-07 00:00: 00 Yes [id number] 275mg inject 1.1 mL under the skin weekly. [facility] hydroxyprog esterone,PF , 275 mg/1.1 mL injection 3-0 03-07 00:00: 00 Yes 275mg inject 1.1 mL under the skin weekly. [facility] hydroxyprog esterone,PF , 275 mg/1.1 mL injection 3-0 03-07 00:00: 00 Yes [id number] 275mg inject 1.1 mL under the skin weekly. [facility] hydroxy[facility]one,PF , 275 mg/1.1 mL injection 2022-0 03-07 00:00: 00 Yes 275mg inject 1.1 mL under the skin weekly. [facility] hydroxyprog esterone,PF , 275 mg/1.1 mL injection 2022-0 03-07 00:00: 00 Yes [id number] 275mg inject 1.1 mL under the skin weekly. [facility] hydroxyprog esterone,PF , 275 mg/1.1 mL injection 0 03-07 00:00: 00 Yes 275mg inject 1.1 mL under the skin weekly. [facility] hydroxyprog esterone,PF , 275 mg/1.1 mL injection 0 03-07 00:00: 00 Yes [id number] 275mg inject 1.1 mL under the skin weekly. [facility] hydroxyprog esterone,PF , 275 mg/1.1 mL injection 0 03-07 00:00: 00 Yes 275mg inject 1.1 mL under the skin weekly. [facility] hydroxyprog esterone,PF , 275 mg/1.1 mL injection 0 03-07 00:00: 00 Yes [id number] 275mg inject 1.1 mL under the skin weekly. [facility] hydroxyprog esterone,PF , 275 mg/1.1 mL injection 0 03-07 00:00: 00 Yes 275mg inject 1.1 mL under the skin weekly. [facility] hydroxyprog esterone,PF , 275 mg/1.1 mL injection 2022-0 03-07 00:00: 00 Yes [id number] 275mg inject 1.1 mL under the skin weekly. [facility] hydroxyprog esterone,PF , 275 mg/1.1 mL injection 3-0 03-07 00:00: 00 Yes 275mg inject 1.1 mL under the skin weekly. [facility] hydroxyprog esterone,PF , 275 mg/1.1 mL injection 2022-0 03-07 00:00: 00 Yes [id number] 275mg inject 1.1 mL under the skin weekly. [facility] hydroxyprog esterone,PF , 275 mg/1.1 mL injection 3-0 03-07 00:00: 00 Yes 275mg inject 1.1 mL under the skin weekly. [facility] hydroxyprog esterone,PF , 275 mg/1.1 mL injection 3-0 03-07 00:00: 00 Yes [id number] 275mg inject 1.1 mL under the skin weekly. [facility] hydroxyprog esterone,PF , 275 mg/1.1 mL injection 3-0 03-07 00:00: 00 Yes 275mg inject 1.1 mL under the skin weekly. [facility] hydroxyprog esterone,PF , 275 mg/1.1 mL injection 3-0 03-07 00:00: 00 Yes [id number] 275mg inject 1.1 mL under the skin weekly. [facility] hydroxyprog esterone,PF , 275 mg/1.1 mL injection 3-0 03-07 00:00: 00 Yes 275mg inject 1.1 mL under the skin weekly. [facility] hydroxyprog esterone,PF , 275 mg/1.1 mL injection 30 03-07 00:00: 00 Yes [id number] 275mg inject 1.1 mL under the skin weekly. [facility] hydroxyprog esterone,PF , 275 mg/1.1 mL injection 30 03-07 00:00: 00 Yes 275mg inject 1.1 mL under the skin weekly. [facility] hydroxyprog esterone,PF , 275 mg/1.1 mL injection 3-0 03-07 00:00: 00 Yes [id number] 275mg inject 1.1 mL under the skin weekly. [facility] hydroxyprog esterone,PF , 275 mg/1.1 mL injection 3-0 03-07 00:00: 00 Yes 275mg inject 1.1 mL under the skin weekly. [facility] hydroxyprog esterone,PF , 275 mg/1.1 mL injection 3-0 03-07 00:00: 00 Yes [id number] 275mg inject 1.1 mL under the skin weekly. [facility] hydroxyprog esterone,PF , 275 mg/1.1 mL injection 0 03-07 00:00: 00 Yes 275mg inject 1.1 mL under the skin weekly. [facility] hydroxyprog esterone,PF , 275 mg/1.1 mL injection 0 03-07 00:00: 00 Yes [id number] 275mg inject 1.1 mL under the skin weekly. [facility] hydroxyprog esterone,PF , 275 mg/1.1 mL injection 0 03-07 00:00: 00 Yes 275mg inject 1.1 mL under the skin weekly. [facility] hydroxyprog esterone,PF , 275 mg/1.1 mL injection 2022-0 03-07 00:00: 00 Yes [id number] 275mg inject 1.1 mL under the skin weekly. [facility] hydroxyprog esterone,PF , 275 mg/1.1 mL injection 0 03-07 00:00: 00 Yes 275mg inject 1.1 mL under the skin weekly. [facility] hydroxyprog esterone,PF , 275 mg/1.1 mL injection 0 03-07 00:00: 00 Yes [id number] 275mg inject 1.1 mL under the skin weekly. [facility] hydroxyprog esterone,PF , 275 mg/1.1 mL injection 0 03-07 00:00: 00 Yes 275mg inject 1.1 mL under the skin weekly. [facility] hydroxyprog esterone,PF , 275 mg/1.1 mL injection 2022-0 03-07 00:00: 00 Yes [id number] 275mg inject 1.1 mL under the skin weekly. [facility] hydroxyprog esterone,PF , 275 mg/1.1 mL injection 2022-0 03-07 00:00: 00 Yes 275mg inject 1.1 mL under the skin weekly. [facility] hydroxyprog esterone,PF , 275 mg/1.1 mL injection 3-0 03-07 00:00: 00 Yes [id number] 275mg inject 1.1 mL under the skin weekly. [facility] hydroxyprog esterone,PF , 275 mg/1.1 mL injection 0 03-07 00:00: 00 Yes 275mg inject 1.1 mL under the skin weekly. [facility] hydroxyprog esterone,PF , 275 mg/1.1 mL injection 0 03-07 00:00: 00 Yes [id number] 275mg inject 1.1 mL under the skin weekly. [facility] , 275 mg/1.1 mL injection 03-07 00:00: 00 Yes 275mg inject 1.1 mL under the skin weekly. [facility] hydroxyprog esterone,PF , 275 mg/1.1 mL injection 03-07 00:00: 00 Yes [id number] 275mg inject 1.1 mL under the skin weekly. [facility] hydroxyprog esterone,PF , 275 mg/1.1 mL injection 03-07 00:00: 00 Yes 275mg inject 1.1 mL under the skin weekly. [facility] hydroxyprog esterone,PF , 275 mg/1.1 mL injection 0 03-07 00:00: 00 Yes [id number] 275mg inject 1.1 mL under the skin weekly. [facility] hydroxyprog esterone,PF , 275 mg/1.1 mL injection 03-07 00:00: 00 Yes 275mg inject 1.1 mL under the skin weekly. [facility] hydroxyprog esterone,PF , 275 mg/1.1 mL injection 03-07 00:00: 00 Yes [id number] 275mg inject 1.1 mL under the skin weekly. [facility] hydroxyprog esterone,PF , 275 mg/1.1 mL injection 03-07 00:00: 00 07-21 00:00 :00 No 275mg inject 1.1 mL under the skin weekly. [facility] hydroxyprog esterone,PF , 275 mg/1.1 mL injection 0 03-07 00:00: 00 07-21 00:00 :00 No [id number] 275mg inject 1.1 mL under the skin weekly. [facility] hydroxyprog esterone,PF , 275 mg/1.1 mL injection 03-07 00:00: 00 07-21 00:00 :00 No 275mg inject 1.1 mL under the skin weekly. [facility] hydroxyprog esterone,PF , 275 mg/1.1 mL injection 03-07 00:00: 00 07-21 00:00 :00 No [id number] 275mg inject 1.1 mL under the skin weekly. [facility] hydroxyprog esterone caproate, ppres, 250 mg/mL injection 2021-02 00:00: 00 Yes [id number] 250mg 1 mL by Intramuscu lar route weekly. [facility] hydroxyprog esterone caproate, ppres, 250 mg/mL injection 2021-02 00:00: 00 03-07 00:00 :00 No [id number] 250mg 1 mL by Intramuscu lar route weekly. [facility] HYDROXYprog est,PF,,pre g presv, 250 mg/mL (1 mL) injection 2021-02 00:00: 00 Yes [facility] HYDROXYprog est,PF,,pre g presv, 250 mg/mL (1 mL) injection 2021-02 00:00: 00 Yes [facility] HYDROXYprog est,PF,,pre g presv, 250 mg/mL (1 mL) injection 2021-02 00:00: 00 Yes [facility] HYDROXYprog est,PF,,pre g presv, 250 mg/mL (1 mL) injection 2021-02 00:00: 00 Yes [facility] HYDROXYprog est,PF,,pre g presv, 250 mg/mL (1 mL) injection 2021-02 00:00: 00 Yes [facility] HYDROXYprog est,PF,,pre g presv, 250 mg/mL (1 mL) injection 2021-02 00:00: 00 Yes [facility] HYDROXYprog est,PF,,pre g presv, 250 mg/mL (1 mL) injection 2021-02 00:00: 00 Yes [facility] HYDROXYprog est,PF,,pre g presv, 250 mg/mL (1 mL) injection 2021-02 00:00: 00 Yes [facility] HYDROXYprog est,PF,,pre g presv, 250 mg/mL (1 mL) injection 2021-02 00:00: 00 Yes [facility] HYDROXYprog est,PF,,pre g presv, 250 mg/mL (1 mL) injection 2021-02 00:00: 00 Yes [facility] HYDROXYprog est,PF,,pre g presv, 250 mg/mL (1 mL) injection 2021-02 00:00: 00 Yes [facility] HYDROXYprog est,PF,,pre g presv, 250 mg/mL (1 mL) injection 2021-02 00:00: 00 Yes [facility] HYDROXYprog est,PF,,pre g presv, 250 mg/mL (1 mL) injection 2021-02 00:00: 00 Yes [facility] HYDROXYprog est,PF,,pre g presv, 250 mg/mL (1 mL) injection 2021-02 00:00: 00 Yes [facility] HYDROXYprog est,PF,,pre g presv, 250 mg/mL (1 mL) injection 2021-02 00:00: 00 Yes [facility] HYDROXYprog est,PF,,pre g presv, 250 mg/mL (1 mL) injection 2021-02 00:00: 00 Yes [facility] HYDROXYprog est,PF,,pre g presv, 250 mg/mL (1 mL) injection 2021-02 00:00: 00 Yes [facility] HYDROXYprog est,PF,,pre g presv, 250 mg/mL (1 mL) injection 2021-02 00:00: 00 Yes [facility] HYDROXYprog est,PF,,pre g presv, 250 mg/mL (1 mL) injection 2021-02 00:00: 00 Yes [facility] HYDROXYprog est,PF,,pre g presv, 250 mg/mL (1 mL) injection 2021-02 00:00: 00 Yes [facility] HYDROXYprog est,PF,,pre g presv, 250 mg/mL (1 mL) injection 2021-02 00:00: 00 Yes [facility] HYDROXYprog est,PF,,pre g presv, 250 mg/mL (1 mL) injection 2021-02 00:00: 00 Yes [facility] HYDROXYprog est,PF,,pre g presv, 250 mg/mL (1 mL) injection 2021-02 00:00: 00 Yes [facility] HYDROXYprog est,PF,,pre g presv, 250 mg/mL (1 mL) injection 2021-02 00:00: 00 Yes [facility] HYDROXYprog est,PF,,pre g presv, 250 mg/mL (1 mL) injection 2021-02 00:00: 00 Yes [facility] HYDROXYprog est,PF,,pre g presv, 250 mg/mL (1 mL) injection 2021-02 00:00: 00 Yes [facility] HYDROXYprog est,PF,,pre g presv, 250 mg/mL (1 mL) injection 2021-02 00:00: 00 Yes [facility] HYDROXYprog est,PF,,pre g presv, 250 mg/mL (1 mL) injection 2021-02 00:00: 00 Yes [facility] HYDROXYprog est,PF,,pre g presv, 250 mg/mL (1 mL) injection 2021-02 00:00: 00 Yes [facility] HYDROXYprog est,PF,,pre g presv, 250 mg/mL (1 mL) injection 2021-02 00:00: 00 Yes [facility] HYDROXYprog est,PF,,pre g presv, 250 mg/mL (1 mL) injection 2021-02 00:00: 00 Yes [facility] HYDROXYprog est,PF,,pre g presv, 250 mg/mL (1 mL) injection 2021-02 00:00: 00 07-21 00:00 :00 No [facility] HYDROXYprog est,PF,,pre g presv, 250 mg/mL (1 mL) injection 2021-02 00:00: 00 07-21 00:00 :00 No [facility] hydroxyprog esterone 250 mg/mL injection 2021-02 00:00: 00 Yes [id number] 250mg 1 mL by Intramuscu lar route weekly. [facility] 250 mg/mL injection 2021-02 00:00: 00 Yes [id number] 250mg 1 mL by Intramuscu lar route weekly. [facility] 250 mg/mL injection 2021-02 00:00: 00 03-07 00:00 :00 No [id number] 250mg 1 mL by Intramuscu lar route weekly. [facility] chlorhexidi ne 0.12 % mouthwash 2021-02 00:00: 00 Yes AFTER BRUSHING TEETH, SWISH 15ML IN MOUTH FOR 30 SECONDS THEN SPIT OUT TWICE DAILY [facility] chlorhexidi ne 0.12 % mouthwash 2021-02 00:00: 00 Yes AFTER BRUSHING TEETH, SWISH 15ML IN MOUTH FOR 30 SECONDS THEN SPIT OUT TWICE DAILY [facility] mouthwash 2021-02 00:00: 00 Yes AFTER BRUSHING TEETH, SWISH 15ML IN MOUTH FOR 30 SECONDS THEN SPIT OUT TWICE DAILY [facility] 0.12 % mouthwash 2021-02 00:00: 00 Yes AFTER BRUSHING TEETH, SWISH 15ML IN MOUTH FOR 30 SECONDS THEN SPIT OUT TWICE DAILY [facility]idi ne 0.12 % mouthwash 2021-02 00:00: 00 Yes AFTER BRUSHING TEETH, SWISH 15ML IN MOUTH FOR 30 SECONDS THEN SPIT OUT TWICE DAILY [facility] chlorhexidi ne 0.12 % mouthwash 2021-02 00:00: 00 Yes AFTER BRUSHING TEETH, SWISH 15ML IN MOUTH FOR 30 SECONDS THEN SPIT OUT TWICE DAILY [facility] chlorhexidi ne 0.12 % mouthwash 2021-02 00:00: 00 Yes AFTER BRUSHING TEETH, SWISH 15ML IN MOUTH FOR 30 SECONDS THEN SPIT OUT TWICE DAILY [facility] chlorhexidi ne 0.12 % mouthwash 2021-02 00:00: 00 Yes AFTER BRUSHING TEETH, SWISH 15ML IN MOUTH FOR 30 SECONDS THEN SPIT OUT TWICE DAILY [facility] chlorhexidi ne 0.12 % mouthwash 2021-02 00:00: 00 Yes AFTER BRUSHING TEETH, SWISH 15ML IN MOUTH FOR 30 SECONDS THEN SPIT OUT TWICE DAILY [facility] chlorhexidi ne 0.12 % mouthwash 2021-02 00:00: 00 Yes AFTER BRUSHING TEETH, SWISH 15ML IN MOUTH FOR 30 SECONDS THEN SPIT OUT TWICE DAILY [facility] chlorhexidi ne 0.12 % mouthwash 2021-02 00:00: 00 Yes AFTER BRUSHING TEETH, SWISH 15ML IN MOUTH FOR 30 SECONDS THEN SPIT OUT TWICE DAILY [facility] chlorhexidi ne 0.12 % mouthwash 2021-02 00:00: 00 Yes AFTER BRUSHING TEETH, SWISH 15ML IN MOUTH FOR 30 SECONDS THEN SPIT OUT TWICE DAILY [facility] chlorhexidi ne 0.12 % mouthwash 2021-02 00:00: 00 Yes AFTER BRUSHING TEETH, SWISH 15ML IN MOUTH FOR 30 SECONDS THEN SPIT OUT TWICE DAILY [facility] chlorhexidi ne 0.12 % mouthwash 2021-02 00:00: 00 Yes AFTER BRUSHING TEETH, SWISH 15ML IN MOUTH FOR 30 SECONDS THEN SPIT OUT TWICE DAILY [facility] chlorhexidi ne 0.12 % mouthwash 2021-02 00:00: 00 Yes AFTER BRUSHING TEETH, SWISH 15ML IN MOUTH FOR 30 SECONDS THEN SPIT OUT TWICE DAILY [facility] chlorhexidi ne 0.12 % mouthwash 2021-02 00:00: 00 Yes AFTER BRUSHING TEETH, SWISH 15ML IN MOUTH FOR 30 SECONDS THEN SPIT OUT TWICE DAILY [facility] chlorhexidi ne 0.12 % mouthwash 2021-02 00:00: 00 Yes AFTER BRUSHING TEETH, SWISH 15ML IN MOUTH FOR 30 SECONDS THEN SPIT OUT TWICE DAILY [facility] chlorhexidi ne 0.12 % mouthwash 2021-02 00:00: 00 Yes AFTER BRUSHING TEETH, SWISH 15ML IN MOUTH FOR 30 SECONDS THEN SPIT OUT TWICE DAILY [facility] chlorhexidi ne 0.12 % mouthwash 2021-02 00:00: 00 Yes AFTER BRUSHING TEETH, SWISH 15ML IN MOUTH FOR 30 SECONDS THEN SPIT OUT TWICE DAILY [facility] chlorhexidi ne 0.12 % mouthwash 2021-02 00:00: 00 Yes AFTER BRUSHING TEETH, SWISH 15ML IN MOUTH FOR 30 SECONDS THEN SPIT OUT TWICE DAILY [facility] chlorhexidi ne 0.12 % mouthwash 2021-02 00:00: 00 Yes AFTER BRUSHING TEETH, SWISH 15ML IN MOUTH FOR 30 SECONDS THEN SPIT OUT TWICE DAILY [facility] chlorhexidi ne 0.12 % mouthwash 2021-02 00:00: 00 Yes AFTER BRUSHING TEETH, SWISH 15ML IN MOUTH FOR 30 SECONDS THEN SPIT OUT TWICE DAILY [facility] chlorhexidi ne 0.12 % mouthwash 2021-02 00:00: 00 Yes AFTER BRUSHING TEETH, SWISH 15ML IN MOUTH FOR 30 SECONDS THEN SPIT OUT TWICE DAILY [facility] chlorhexidi ne 0.12 % mouthwash 2021-02 00:00: 00 Yes AFTER BRUSHING TEETH, SWISH 15ML IN MOUTH FOR 30 SECONDS THEN SPIT OUT TWICE DAILY [facility] chlorhexidi ne 0.12 % mouthwash 2021-02 00:00: 00 Yes AFTER BRUSHING TEETH, SWISH 15ML IN MOUTH FOR 30 SECONDS THEN SPIT OUT TWICE DAILY [facility] chlorhexidi ne 0.12 % mouthwash 2021-02 00:00: 00 Yes AFTER BRUSHING TEETH, SWISH 15ML IN MOUTH FOR 30 SECONDS THEN SPIT OUT TWICE DAILY [facility] chlorhexidi ne 0.12 % mouthwash 2021-02 00:00: 00 Yes AFTER BRUSHING TEETH, SWISH 15ML IN MOUTH FOR 30 SECONDS THEN SPIT OUT TWICE DAILY [facility] chlorhexidi ne 0.12 % mouthwash 2021-02 00:00: 00 Yes AFTER BRUSHING TEETH, SWISH 15ML IN MOUTH FOR 30 SECONDS THEN SPIT OUT TWICE DAILY [facility] chlorhexidi ne 0.12 % mouthwash 2021-02 00:00: 00 Yes AFTER BRUSHING TEETH, SWISH 15ML IN MOUTH FOR 30 SECONDS THEN SPIT OUT TWICE DAILY [facility] chlorhexidi ne 0.12 % mouthwash 2021-02 00:00: 00 Yes AFTER BRUSHING TEETH, SWISH 15ML IN MOUTH FOR 30 SECONDS THEN SPIT OUT TWICE DAILY [facility] chlorhexidi ne 0.12 % mouthwash 2021-02 00:00: 00 Yes AFTER BRUSHING TEETH, SWISH 15ML IN MOUTH FOR 30 SECONDS THEN SPIT OUT TWICE DAILY [facility] chlorhexidi ne 0.12 % mouthwash 2021-02 00:00: 00 Yes AFTER BRUSHING TEETH, SWISH 15ML IN MOUTH FOR 30 SECONDS THEN SPIT OUT TWICE DAILY [facility] chlorhexidi ne 0.12 % mouthwash 2021-02 00:00: 00 Yes AFTER BRUSHING TEETH, SWISH 15ML IN MOUTH FOR 30 SECONDS THEN SPIT OUT TWICE DAILY [facility] chlorhexidi ne 0.12 % mouthwash 2021-02 00:00: 00 Yes AFTER BRUSHING TEETH, SWISH 15ML IN MOUTH FOR 30 SECONDS THEN SPIT OUT TWICE DAILY [facility] 0.12 % mouthwash 2021-02 00:00: 00 Yes AFTER BRUSHING TEETH, SWISH 15ML IN MOUTH FOR 30 SECONDS THEN SPIT OUT TWICE DAILY [facility] chlorhexidi ne 0.12 % mouthwash 2021-02 00:00: 00 Yes AFTER BRUSHING TEETH, SWISH 15ML IN MOUTH FOR 30 SECONDS THEN SPIT OUT TWICE DAILY [facility] chlorhexidi ne 0.12 % mouthwash 2021-02 00:00: 00 Yes AFTER BRUSHING TEETH, SWISH 15ML IN MOUTH FOR 30 SECONDS THEN SPIT OUT TWICE DAILY [facility] chlorhexidi ne 0.12 % mouthwash 2021-02 00:00: 00 Yes AFTER BRUSHING TEETH, SWISH 15ML IN MOUTH FOR 30 SECONDS THEN SPIT OUT TWICE DAILY [facility] chlorhexidi ne 0.12 % mouthwash 2021-02 00:00: 00 Yes AFTER BRUSHING TEETH, SWISH 15ML IN MOUTH FOR 30 SECONDS THEN SPIT OUT TWICE DAILY [facility] chlorhexidi ne 0.12 % mouthwash 2021-02 00:00: 00 07-21 00:00 :00 No AFTER BRUSHING TEETH, SWISH 15ML IN MOUTH FOR 30 SECONDS THEN SPIT OUT TWICE DAILY [facility] chlorhexidi ne 0.12 % mouthwash 2021-02 00:00: 00 07-21 00:00 :00 No AFTER BRUSHING TEETH, SWISH 15ML IN MOUTH FOR 30 SECONDS THEN SPIT OUT TWICE DAILY [facility] 25/iron fum/folic/d betancur (-1 ORAL) 2021-02 0 09:26: 35 Yes Take by mouth. [facility] 25/iron fum/folic/d betancur (-1 ORAL) 2021-02 0 09:26: 35 Yes Take by mouth. [facility] 25/iron fum/folic/d betancur (-1 ORAL) 2021-02 0-13 09:26: 35 Yes Take by mouth. [facility] 25/iron fum/folic/d betancur (-1 ORAL) 2021-02 0-13 09:26: 35 Yes Take by mouth. [facility] 25/iron fum/folic/d betancur (-1 ORAL) 2021-02 0-13 09:26: 35 Yes Take by mouth. [facility] 25/iron fum/folic/d betancur (-1 ORAL) 2021-02 0-13 09:26: 35 Yes Take by mouth. [facility] 25/iron fum/folic/d betancur (-1 ORAL) 2021-02 0-13 09:26: 35 Yes Take by mouth. [facility] 25/iron fum/folic/d betancur (-1 ORAL) 2021-02 0-13 09:26: 35 Yes Take by mouth. [facility] 25/iron fum/folic/d betancur (-1 ORAL) 2021-02 0-13 09:26: 35 Yes Take by mouth. [facility] 25/iron fum/folic/d betancur (-1 ORAL) 2021-02 0-13 09:26: 35 Yes Take by mouth. [facility] 25/iron fum/folic/d betancur (-1 ORAL) 2021-02 0-13 09:26: 35 Yes Take by mouth. [facility] 25/iron fum/folic/d betancur (-1 ORAL) 2021-02 0-13 09:26: 35 Yes Take by mouth. [facility] 25/iron fum/folic/d betancur (-1 ORAL) 2021-02 0-13 09:26: 35 Yes Take by mouth. [facility] 25/iron fum/folic/d betancur (-1 ORAL) 2021-02 0-13 09:26: 35 Yes Take by mouth. [facility] 25/iron fum/folic/d betancur (-1 ORAL) 2021-02 0-13 09:26: 35 Yes Take by mouth. [facility] 25/iron fum/folic/d betancur (-1 ORAL) 2021-02 0-13 09:26: 35 Yes Take by mouth. [facility] 25/iron fum/folic/d betancur (-1 ORAL) 2021-02 0-13 09:26: 35 Yes Take by mouth. [facility] 25/iron fum/folic/d betancur (-1 ORAL) 2021-02 0-13 09:26: 35 Yes Take by mouth. [facility] 25/iron fum/folic/d betancur (-1 ORAL) 2021-02 0-13 09:26: 35 Yes Take by mouth. [facility] 25/iron fum/folic/d betancur (-1 ORAL) 2021-02 0-13 09:26: 35 Yes Take by mouth. [facility] 25/iron fum/folic/d betancur (-1 ORAL) 2021-02 0-13 09:26: 35 Yes Take by mouth. [facility] 25/iron fum/folic/d betancur (-1 ORAL) 2021-02 0-13 09:26: 35 Yes Take by mouth. [facility] 25/iron fum/folic/d betancur (-1 ORAL) 2021-02 0-13 09:26: 35 Yes Take by mouth. [facility] 25/iron fum/folic/d betancur (-1 ORAL) 2021-02 0-13 09:26: 35 Yes Take by mouth. [facility] 25/iron fum/folic/d betancur (-1 ORAL) 2021-02 0-13 09:26: 35 Yes Take by mouth. [facility] 25/iron fum/folic/d betancur (-1 ORAL) 2021-02 0-13 09:26: 35 Yes Take by mouth. [facility] 25/iron fum/folic/d betancur (-1 ORAL) 2021-02 0-13 09:26: 35 Yes Take by mouth. [facility] 25/iron fum/folic/d betancur (-1 ORAL) 2021-02 0-13 09:26: 35 Yes Take by mouth. [facility] 25/iron fum/folic/d betancur (-1 ORAL) 2021-02 0-13 09:26: 35 Yes Take by mouth. [facility] 25/iron fum/folic/d betancur (-1 ORAL) 2021-02 0-13 09:26: 35 Yes Take by mouth. [facility] 25/iron fum/folic/d betancur (-1 ORAL) 2021-02 0-13 09:26: 35 Yes Take by mouth. [facility] 25/iron fum/folic/d betancur (-1 ORAL) 2021-02 0-13 09:26: 35 Yes Take by mouth. [facility] 25/iron fum/folic/d betancur (-1 ORAL) 2021-02 0-13 09:26: 35 Yes Take by mouth. [facility] 25/iron fum/folic/d betancur (-1 ORAL) 2021-02 0-13 09:26: 35 Yes Take by mouth. [facility] 25/iron fum/folic/d betancur (-1 ORAL) 2021-02 0-13 09:26: 35 Yes Take by mouth. [facility] 25/iron fum/folic/d betancur (-1 ORAL) 2021-02 0-13 09:26: 35 Yes Take by mouth. [facility] 25/iron fum/folic/d betancur (-1 ORAL) 2021-02 0-13 09:26: 35 Yes Take by mouth. [facility] 25/iron fum/folic/d betancur (-1 ORAL) 2021-02 0-13 09:26: 35 Yes Take by mouth. [facility] 25/iron fum/folic/d betancur (-1 ORAL) 2021-02 0-13 09:26: 35 Yes Take by mouth. [facility] 25/iron fum/folic/d betancur (-1 ORAL) 2021-02 0-13 09:26: 35 Yes Take by mouth. [facility] 25/iron fum/folic/d betancur (-1 ORAL) 2021-1 0-13 09:26: 35 Yes Take by mouth. [facility] PROAIR HFA 90 mcg/actuati on inhaler 2-0 8-30 00:00: 00 Yes [facility] PROAIR HFA 90 mcg/actuati on inhaler 2-0 8-30 00:00: 00 Yes [facility] PROAIR HFA 90 mcg/actuati on inhaler 2-0 8-30 00:00: 00 Yes [facility] PROAIR HFA 90 mcg/actuati on inhaler 2-0 8-30 00:00: 00 Yes [facility] PROAIR HFA 90 mcg/actuati on inhaler 2021-0 8-30 00:00: 00 Yes [facility] PROAIR HFA 90 mcg/actuati on inhaler 2-0 830 00:00: 00 Yes [facility] PROAIR HFA 90 mcg/actuati on inhaler 2-0 830 00:00: 00 Yes [facility] PROAIR HFA 90 mcg/actuati on inhaler 2-0 830 00:00: 00 Yes [facility] PROAIR HFA 90 mcg/actuati on inhaler 2-0 830 00:00: 00 Yes [facility] PROAIR HFA 90 mcg/actuati on inhaler 2-0 8-30 00:00: 00 Yes [facility] PROAIR HFA 90 mcg/actuati on inhaler 2-0 8-30 00:00: 00 Yes [facility] PROAIR HFA 90 mcg/actuati on inhaler 2-0 8-30 00:00: 00 Yes [facility] PROAIR HFA 90 mcg/actuati on inhaler 2-0 8-30 00:00: 00 Yes [facility] PROAIR HFA 90 mcg/actuati on inhaler 2-0 8-30 00:00: 00 Yes [facility] PROAIR HFA 90 mcg/actuati on inhaler 2022-0 8-30 00:00: 00 Yes [facility] PROAIR HFA 90 mcg/actuati on inhaler 2022-0 8-30 00:00: 00 Yes [facility] PROAIR HFA 90 mcg/actuati on inhaler 2022-0 8-30 00:00: 00 Yes [facility] PROAIR HFA 90 mcg/actuati on inhaler 2022-0 8-30 00:00: 00 Yes [facility] PROAIR HFA 90 mcg/actuati on inhaler 2022-0 8-30 00:00: 00 Yes [facility] PROAIR HFA 90 mcg/actuati on inhaler 2022-0 8-30 00:00: 00 Yes [facility] PROAIR HFA 90 mcg/actuati on inhaler 2022-0 830 00:00: 00 Yes [facility] PROAIR HFA 90 mcg/actuati on inhaler 2022-0 830 00:00: 00 Yes [facility] PROAIR HFA 90 mcg/actuati on inhaler 2022-0 830 00:00: 00 Yes [facility] PROAIR HFA 90 mcg/actuati on inhaler 2022-0 8-30 00:00: 00 Yes [facility] PROAIR HFA 90 mcg/actuati on inhaler 2022-0 8-30 00:00: 00 Yes [facility] PROAIR HFA 90 mcg/actuati on inhaler 2022-0 8-30 00:00: 00 Yes [facility] PROAIR HFA 90 mcg/actuati on inhaler 2022-0 8-30 00:00: 00 Yes [facility] PROAIR HFA 90 mcg/actuati on inhaler 2022-0 8-30 00:00: 00 Yes [facility] PROAIR HFA 90 mcg/actuati on inhaler 2022-0 8-30 00:00: 00 Yes [facility] PROAIR HFA 90 mcg/actuati on inhaler 2022-0 8-30 00:00: 00 Yes [facility] PROAIR HFA 90 mcg/actuati on inhaler 2022-0 8-30 00:00: 00 Yes [facility] PROAIR HFA 90 mcg/actuati on inhaler 2022-0 8-30 00:00: 00 Yes [facility] PROAIR HFA 90 mcg/actuati on inhaler 2022-0 8-30 00:00: 00 Yes [facility] PROAIR HFA 90 mcg/actuati on inhaler 2022-0 8-30 00:00: 00 Yes [facility] PROAIR HFA 90 mcg/actuati on inhaler 2022-0 8-30 00:00: 00 Yes [facility] PROAIR HFA 90 mcg/actuati on inhaler 2022-0 830 00:00: 00 Yes [facility] PROAIR HFA 90 mcg/actuati on inhaler 2022-0 830 00:00: 00 Yes [facility] PROAIR HFA 90 mcg/actuati on inhaler 2022-0 8-30 00:00: 00 Yes [facility] PROAIR HFA 90 mcg/actuati on inhaler 2022-0 830 00:00: 00 Yes [facility] PROAIR HFA 90 mcg/actuati on inhaler 2022-0 830 00:00: 00 Yes [facility] PROAIR HFA 90 mcg/actuati on inhaler 2022-0 8-30 00:00: 00 Yes [facility] PROAIR HFA 90 mcg/actuati on inhaler 2022-0 8-30 00:00: 00 Yes [facility] PROAIR HFA 90 mcg/actuati on inhaler 2022-0 8-30 00:00: 00 Yes [facility] PROAIR HFA 90 mcg/actuati on inhaler 2022-0 8-30 00:00: 00 Yes [facility] PROAIR HFA 90 mcg/actuati on inhaler 2022-0 8-30 00:00: 00 Yes [facility] PROAIR HFA 90 mcg/actuati on inhaler 2022-0 8-30 00:00: 00 Yes [facility] PROAIR HFA 90 mcg/actuati on inhaler 0 8 00:00: 00 Yes [facility] PROAIR HFA 90 mcg/actuati on inhaler 0 8 00:00: 00 Yes [facility] PROAIR HFA 90 mcg/actuati on inhaler 0 8 00:00: 00 Yes [facility] PROAIR HFA 90 mcg/actuati on inhaler 0 8 00:00: 00 Yes [facility] PROAIR HFA 90 mcg/actuati on inhaler 0 8 00:00: 00 07-23 00:00 :00 No [facility] norgestimat e-ethinyl estradioL (TRI-SPRINT EC) 0.18/0.215/ 0.25 mg-35 mcg (28) tablet 10-12 00:00: 00 Yes [id number] 1{tbl} Take 1 tablet by mouth in the morning. [facility] norgestimat e-ethinyl estradioL (TRI-SPRINT EC) 0.18/0.215/ 0.25 mg-35 mcg (28) tablet 10-12 00:00: 00 12-09 00:00 :00 No [id number] 1{tbl} Take 1 tablet by mouth in the morning. [facility] norgestimat e-ethinyl estradioL (ORTHO TRI-CYCLEN, 28,) 0.18/0.215/ 0.25 mg-35 mcg (28) tablet 2020-02 00:00: 00 Yes [id number] 1{tbl} Take 1 tablet by mouth daily. [facility] norgestimat e-ethinyl estradioL (ORTHO TRI-CYCLEN, 28,) 0.18/0.215/ 0.25 mg-35 mcg (28) tablet 2020-02 00:00: 00 12-09 00:00 :00 No [id number] 1{tbl} Take 1 tablet by mouth daily. [facility] norgestimat e-ethinyl estradioL (ORTHO TRI-CYCLEN, 28,) 0.18/0.215/ 0.25 mg-35 mcg (28) tablet 2020-02 00:00: 00 12-09 00:00 :00 No [id number] 1{tbl} Take 1 tablet by mouth daily. [facility] Immunizations Ordered Immunization Name Filled Immunization Name Date Status Comments Source TDAP 2022-05-26 00:00:00 Completed [facility] TDAP 2022-05-26 00:00:00 Completed [facility] TDAP 2022-05-26 00:00:00 Completed [facility] TDAP 2022-05-26 00:00:00 Completed [facility] TDAP 2022-05-26 00:00:00 Completed [facility] TDAP 2022-05-26 00:00:00 Completed [facility] TDAP 2022-05-26 00:00:00 Completed [facility] TDAP 2022-05-26 00:00:00 Completed [facility] TDAP 2022-05-26 00:00:00 Completed [facility] TDAP 2022-05-26 00:00:00 Completed [facility] TDAP 2022-05-26 00:00:00 Completed [facility] TDAP 2022-05-26 00:00:00 Completed [facility] TDAP 2022-05-26 00:00:00 Completed [facility] TDAP 2022-05-26 00:00:00 Completed [facility] TDAP 2022-05-26 00:00:00 Completed [facility] TDAP 2022-05-26 00:00:00 Completed [facility] TDAP 2022-05-26 00:00:00 Completed [facility] TDAP 2022-05-26 00:00:00 Completed [facility] TDAP 2022-05-26 00:00:00 Completed [facility] TDAP 2022-05-26 00:00:00 Completed [facility] TDAP 2022-05-26 00:00:00 Completed [facility] TDAP 2022-05-26 00:00:00 Completed [facility] TDAP 2022-05-26 00:00:00 Completed [facility] TDAP 2022-05-26 00:00:00 Completed [facility] TDAP 2022-05-26 00:00:00 Completed [facility] TDAP 2022-05-26 00:00:00 Completed [facility] TDAP 2020-06-09 00:00:00 Completed [facility] TDAP 2020-06-09 00:00:00 Completed [facility] TDAP 2020-06-09 00:00:00 Completed [facility] TDAP 2020-06-09 00:00:00 Completed [facility] TDAP 2020-06-09 00:00:00 Completed [facility] TDAP 2020-06-09 00:00:00 Completed [facility] TDAP 2020-06-09 00:00:00 Completed [facility] TDAP 2020-06-09 00:00:00 Completed [facility] TDAP 2020-06-09 00:00:00 Completed [facility] TDAP 2020-06-09 00:00:00 Completed [facility] TDAP 2020-06-09 00:00:00 Completed [facility] TDAP 2020-06-09 00:00:00 Completed [facility] TDAP 2020-06-09 00:00:00 Completed [facility] TDAP 2020-06-09 00:00:00 Completed [facility] TDAP 2020-06-09 00:00:00 Completed [facility] TDAP 2020-06-09 00:00:00 Completed [facility] TDAP 2020-06-09 00:00:00 Completed [facility] TDAP 2020-06-09 00:00:00 Completed [facility] TDAP 2020-06-09 00:00:00 Completed [facility] TDAP 2020-06-09 00:00:00 Completed [facility] TDAP 2020-06-09 00:00:00 Completed [facility] TDAP 2020-06-09 00:00:00 Completed [facility] TDAP 2020-06-09 00:00:00 Completed [facility] TDAP 2020-06-09 00:00:00 Completed [facility] TDAP 2020-06-09 00:00:00 Completed [facility] TDAP 2020-06-09 00:00:00 Completed [facility] TDAP 2020-06-09 00:00:00 Completed [facility] TDAP 2020-06-09 00:00:00 Completed [facility] TDAP 2020-06-09 00:00:00 Completed [facility] TDAP 2020-06-09 00:00:00 Completed [facility] TDAP 2020-06-09 00:00:00 Completed [facility] TDAP 2020-06-09 00:00:00 Completed [facility] TDAP 2020-06-09 00:00:00 Completed [facility] TDAP 2020-06-09 00:00:00 Completed [facility] TDAP 2020-06-09 00:00:00 Completed [facility] TDAP 2020-06-09 00:00:00 Completed [facility] TDAP 2020-06-09 00:00:00 Completed [facility] TDAP 2020-06-09 00:00:00 Completed [facility] TDAP 2020-06-09 00:00:00 Completed [facility] TDAP 2020-06-09 00:00:00 Completed [facility] TDAP 2020-06-09 00:00:00 Completed [facility] TDAP 2020-06-09 00:00:00 Completed [facility] TDAP 2020-06-09 00:00:00 Completed [facility] TDAP 2020-06-09 00:00:00 Completed [facility] TDAP 2020-06-09 00:00:00 Completed [facility] TDAP 2020-06-09 00:00:00 Completed [facility] TDAP 2020-06-09 00:00:00 Completed [facility] TDAP 2020-06-09 00:00:00 Completed [facility] TDAP 2020-06-09 00:00:00 Completed [facility] TDAP 2020-06-09 00:00:00 Completed [facility] TDAP 2020-06-09 00:00:00 Completed [facility] TDAP 2020-06-09 00:00:00 Completed [facility] TDAP 2020-06-09 00:00:00 Completed [facility] TDAP 2020-06-09 00:00:00 Completed [facility] TDAP 2020-06-09 00:00:00 Completed [facility] TDAP 2020-06-09 00:00:00 Completed [facility] TDAP 2020-06-09 00:00:00 Completed [facility] TDAP 2020-06-09 00:00:00 Completed [facility] TDAP 2020-06-09 00:00:00 Completed [facility] TDAP 2020-06-09 00:00:00 Completed [facility] TDAP 2020-06-09 00:00:00 Completed [facility] TDAP 2020-06-09 00:00:00 Completed [facility] TDAP 2020-06-09 00:00:00 Completed [facility] Influenza Virus Vaccine Quad .5 mL IM 6+ MO 2020-01-21 00:00:00 Completed [facility] Influenza Virus Vaccine Quad .5 mL IM 6+ MO 2020-01-21 00:00:00 Completed [facility] Influenza Virus Vaccine Quad .5 mL IM 6+ MO 2020-01-21 00:00:00 Completed [facility] Influenza Virus Vaccine Quad .5 mL IM 6+ MO 2020-01-21 00:00:00 Completed [facility] Influenza Virus Vaccine Quad .5 mL IM 6+ MO 2020-01-21 00:00:00 Completed [facility] Influenza Virus Vaccine Quad .5 mL IM 6+ MO 2020-01-21 00:00:00 Completed [facility] Influenza Virus Vaccine Quad .5 mL IM 6+ MO 2020-01-21 00:00:00 Completed [facility] Influenza Virus Vaccine Quad .5 mL IM 6+ MO 2020-01-21 00:00:00 Completed [facility] Influenza Virus Vaccine Quad .5 mL IM 6+ MO 2020-01-21 00:00:00 Completed [facility] Influenza Virus Vaccine Quad .5 mL IM 6+ MO 2020-01-21 00:00:00 Completed [facility] Influenza Virus Vaccine Quad .5 mL IM 6+ MO 2020-01-21 00:00:00 Completed [facility] Influenza Virus Vaccine Quad .5 mL IM 6+ MO 2020-01-21 00:00:00 Completed [facility] Influenza Virus Vaccine Quad .5 mL IM 6+ MO 2020-01-21 00:00:00 Completed [facility] Influenza Virus Vaccine Quad .5 mL IM 6+ MO 2020-01-21 00:00:00 Completed [facility] Influenza Virus Vaccine Quad .5 mL IM 6+ MO 2020-01-21 00:00:00 Completed [facility] Influenza Virus Vaccine Quad .5 mL IM 6+ MO 2020-01-21 00:00:00 Completed [facility] Influenza Virus Vaccine Quad .5 mL IM 6+ MO 2020-01-21 00:00:00 Completed [facility] Influenza Virus Vaccine Quad .5 mL IM 6+ MO 2020-01-21 00:00:00 Completed [facility] Influenza Virus Vaccine Quad .5 mL IM 6+ MO 2020-01-21 00:00:00 Completed [facility] Influenza Virus Vaccine Quad .5 mL IM 6+ MO 2020-01-21 00:00:00 Completed [facility] Influenza Virus Vaccine Quad .5 mL IM 6+ MO 2020-01-21 00:00:00 Completed [facility] Influenza Virus Vaccine Quad .5 mL IM 6+ MO 2020-01-21 00:00:00 Completed [facility] Influenza Virus Vaccine Quad .5 mL IM 6+ MO 2020-01-21 00:00:00 Completed [facility] Influenza Virus Vaccine Quad .5 mL IM 6+ MO 2020-01-21 00:00:00 Completed [facility] Influenza Virus Vaccine Quad .5 mL IM 6+ MO 2020-01-21 00:00:00 Completed [facility] Influenza Virus Vaccine Quad .5 mL IM 6+ MO 2020-01-21 00:00:00 Completed [facility] Influenza Virus Vaccine Quad .5 mL IM 6+ MO 2020-01-21 00:00:00 Completed [facility] Influenza Virus Vaccine Quad .5 mL IM 6+ MO 2020-01-21 00:00:00 Completed [facility] Influenza Virus Vaccine Quad .5 mL IM 6+ MO 2020-01-21 00:00:00 Completed [facility] Influenza Virus Vaccine Quad .5 mL IM 6+ MO 2020-01-21 00:00:00 Completed [facility] Influenza Virus Vaccine Quad .5 mL IM 6+ MO 2020-01-21 00:00:00 Completed [facility] Influenza Virus Vaccine Quad .5 mL IM 6+ MO 2020-01-21 00:00:00 Completed [facility] Influenza Virus Vaccine Quad .5 mL IM 6+ MO 2020-01-21 00:00:00 Completed [facility] Influenza Virus Vaccine Quad .5 mL IM 6+ MO 2020-01-21 00:00:00 Completed [facility] Influenza Virus Vaccine Quad .5 mL IM 6+ MO 2020-01-21 00:00:00 Completed [facility] Influenza Virus Vaccine Quad .5 mL IM 6+ MO 2020-01-21 00:00:00 Completed [facility] Influenza Virus Vaccine Quad .5 mL IM 6+ MO 2020-01-21 00:00:00 Completed [facility] Influenza Virus Vaccine Quad .5 mL IM 6+ MO 2020-01-21 00:00:00 Completed [facility] Influenza Virus Vaccine Quad .5 mL IM 6+ MO 2020-01-21 00:00:00 Completed [facility] Influenza Virus Vaccine Quad .5 mL IM 6+ MO 2020-01-21 00:00:00 Completed [facility] Influenza Virus Vaccine Quad .5 mL IM 6+ MO 2020-01-21 00:00:00 Completed [facility] Influenza Virus Vaccine Quad .5 mL IM 6+ MO 2020-01-21 00:00:00 Completed [facility] Influenza Virus Vaccine Quad .5 mL IM 6+ MO 2020-01-21 00:00:00 Completed [facility] Influenza Virus Vaccine Quad .5 mL IM 6+ MO 2020-01-21 00:00:00 Completed [facility] Influenza Virus Vaccine Quad .5 mL IM 6+ MO 2020-01-21 00:00:00 Completed [facility] Influenza Virus Vaccine Quad .5 mL IM 6+ MO 2020-01-21 00:00:00 Completed [facility] Influenza Virus Vaccine Quad .5 mL IM 6+ MO 2020-01-21 00:00:00 Completed [facility] Influenza Virus Vaccine Quad .5 mL IM 6+ MO 2020-01-21 00:00:00 Completed [facility] Influenza Virus Vaccine Quad .5 mL IM 6+ MO 2020-01-21 00:00:00 Completed [facility] Influenza Virus Vaccine Quad .5 mL IM 6+ MO 2020-01-21 00:00:00 Completed [facility] Influenza Virus Vaccine Quad .5 mL IM 6+ MO 2020-01-21 00:00:00 Completed [facility] Influenza Virus Vaccine Quad .5 mL IM 6+ MO 2020-01-21 00:00:00 Completed [facility] Influenza Virus Vaccine Quad .5 mL IM 6+ MO 2020-01-21 00:00:00 Completed [facility] Influenza Virus Vaccine Quad .5 mL IM 6+ MO 2020-01-21 00:00:00 Completed [facility] Influenza Virus Vaccine Quad .5 mL IM 6+ MO 2020-01-21 00:00:00 Completed [facility] Influenza Virus Vaccine Quad .5 mL IM 6+ MO 2020-01-21 00:00:00 Completed [facility] Influenza Virus Vaccine Quad .5 mL IM 6+ MO 2020-01-21 00:00:00 Completed [facility] Influenza Virus Vaccine Quad .5 mL IM 6+ MO 2020-01-21 00:00:00 Completed [facility] Influenza Virus Vaccine Quad .5 mL IM 6+ MO 2020-01-21 00:00:00 Completed [facility] Influenza Virus Vaccine Quad .5 mL IM 6+ MO 2020-01-21 00:00:00 Completed [facility] Influenza Virus Vaccine Quad .5 mL IM 6+ MO 2020-01-21 00:00:00 Completed [facility] Influenza Virus Vaccine Quad .5 mL IM 6+ MO 2020-01-21 00:00:00 Completed [facility] Influenza Virus Vaccine Quad .5 mL IM 6+ MO 2020-01-21 00:00:00 Completed [facility] Meningococcal Vaccine 2018-10-18 00:00:00 Completed [facility] TDAP 2018-10-18 00:00:00 Completed [facility] Meningococcal B, OMV 2018-10-18 00:00:00 Completed [facility] Meningococcal Vaccine 2018-10-18 00:00:00 Completed [facility] TDAP 2018-10-18 00:00:00 Completed [facility] Meningococcal B, OMV 2018-10-18 00:00:00 Completed [facility] Meningococcal Vaccine 2018-10-18 00:00:00 Completed [facility] TDAP 2018-10-18 00:00:00 Completed [facility] Meningococcal B, OMV 2018-10-18 00:00:00 Completed [facility] Meningococcal Vaccine 2018-10-18 00:00:00 Completed [facility] TDAP 2018-10-18 00:00:00 Completed [facility] Meningococcal B, OMV 2018-10-18 00:00:00 Completed [facility] Meningococcal Vaccine 2018-10-18 00:00:00 Completed [facility] TDAP 2018-10-18 00:00:00 Completed [facility] Meningococcal B, OMV 2018-10-18 00:00:00 Completed [facility] Meningococcal Vaccine 2018-10-18 00:00:00 Completed [facility] TDAP 2018-10-18 00:00:00 Completed [facility] Meningococcal B, OMV 2018-10-18 00:00:00 Completed [facility] Meningococcal Vaccine 2018-10-18 00:00:00 Completed [facility] TDAP 2018-10-18 00:00:00 Completed [facility] Meningococcal B, OMV 2018-10-18 00:00:00 Completed [facility] Meningococcal Vaccine 2018-10-18 00:00:00 Completed [facility] TDAP 2018-10-18 00:00:00 Completed [facility] Meningococcal B, OMV 2018-10-18 00:00:00 Completed [facility] Meningococcal Vaccine 2018-10-18 00:00:00 Completed [facility] TDAP 2018-10-18 00:00:00 Completed [facility] Meningococcal B, OMV 2018-10-18 00:00:00 Completed [facility] Meningococcal Vaccine 2018-10-18 00:00:00 Completed [facility] TDAP 2018-10-18 00:00:00 Completed [facility] Meningococcal B, OMV 2018-10-18 00:00:00 Completed [facility] Meningococcal Vaccine 2018-10-18 00:00:00 Completed [facility] TDAP 2018-10-18 00:00:00 Completed [facility] Meningococcal B, OMV 2018-10-18 00:00:00 Completed [facility] Meningococcal Vaccine 2018-10-18 00:00:00 Completed [facility] TDAP 2018-10-18 00:00:00 Completed [facility] Meningococcal B, OMV 2018-10-18 00:00:00 Completed [facility] Meningococcal Vaccine 2018-10-18 00:00:00 Completed [facility] TDAP 2018-10-18 00:00:00 Completed [facility] Meningococcal B, OMV 2018-10-18 00:00:00 Completed [facility] Meningococcal Vaccine 2018-10-18 00:00:00 Completed [facility] TDAP 2018-10-18 00:00:00 Completed [facility] Meningococcal B, OMV 2018-10-18 00:00:00 Completed [facility] Meningococcal Vaccine 2018-10-18 00:00:00 Completed [facility] TDAP 2018-10-18 00:00:00 Completed [facility] Meningococcal B, OMV 2018-10-18 00:00:00 Completed [facility] Meningococcal Vaccine 2018-10-18 00:00:00 Completed [facility] TDAP 2018-10-18 00:00:00 Completed [facility] Meningococcal B, OMV 2018-10-18 00:00:00 Completed [facility] Meningococcal Vaccine 2018-10-18 00:00:00 Completed [facility] TDAP 2018-10-18 00:00:00 Completed [facility] Meningococcal B, OMV 2018-10-18 00:00:00 Completed [facility] Meningococcal Vaccine 2018-10-18 00:00:00 Completed [facility] TDAP 2018-10-18 00:00:00 Completed [facility] Meningococcal B, OMV 2018-10-18 00:00:00 Completed [facility] Meningococcal Vaccine 2018-10-18 00:00:00 Completed [facility] TDAP 2018-10-18 00:00:00 Completed [facility] Meningococcal B, OMV 2018-10-18 00:00:00 Completed [facility] Meningococcal Vaccine 2018-10-18 00:00:00 Completed [facility] TDAP 2018-10-18 00:00:00 Completed [facility] Meningococcal B, OMV 2018-10-18 00:00:00 Completed [facility] Meningococcal Vaccine 2018-10-18 00:00:00 Completed [facility] TDAP 2018-10-18 00:00:00 Completed [facility] Meningococcal B, OMV 2018-10-18 00:00:00 Completed [facility] Meningococcal Vaccine 2018-10-18 00:00:00 Completed [facility] TDAP 2018-10-18 00:00:00 Completed [facility] Meningococcal B, OMV 2018-10-18 00:00:00 Completed [facility] Meningococcal Vaccine 2018-10-18 00:00:00 Completed [facility] TDAP 2018-10-18 00:00:00 Completed [facility] Meningococcal B, OMV 2018-10-18 00:00:00 Completed [facility] Meningococcal Vaccine 2018-10-18 00:00:00 Completed [facility] TDAP 2018-10-18 00:00:00 Completed [facility] Meningococcal B, OMV 2018-10-18 00:00:00 Completed [facility] Meningococcal Vaccine 2018-10-18 00:00:00 Completed [facility] TDAP 2018-10-18 00:00:00 Completed [facility] Meningococcal B, OMV 2018-10-18 00:00:00 Completed [facility] Meningococcal Vaccine 2018-10-18 00:00:00 Completed [facility] TDAP 2018-10-18 00:00:00 Completed [facility] Meningococcal B, OMV 2018-10-18 00:00:00 Completed [facility] Meningococcal Vaccine 2018-10-18 00:00:00 Completed [facility] TDAP 2018-10-18 00:00:00 Completed [facility] Meningococcal B, OMV 2018-10-18 00:00:00 Completed [facility] Meningococcal Vaccine 2018-10-18 00:00:00 Completed [facility] TDAP 2018-10-18 00:00:00 Completed [facility] Meningococcal B, OMV 2018-10-18 00:00:00 Completed [facility] Meningococcal Vaccine 2018-10-18 00:00:00 Completed [facility] TDAP 2018-10-18 00:00:00 Completed [facility] Meningococcal B, OMV 2018-10-18 00:00:00 Completed [facility] Meningococcal Vaccine 2018-10-18 00:00:00 Completed [facility] TDAP 2018-10-18 00:00:00 Completed [facility] Meningococcal B, OMV 2018-10-18 00:00:00 Completed [facility] Meningococcal Vaccine 2018-10-18 00:00:00 Completed [facility] TDAP 2018-10-18 00:00:00 Completed [facility] Meningococcal B, OMV 2018-10-18 00:00:00 Completed [facility] Meningococcal Vaccine 2018-10-18 00:00:00 Completed [facility] TDAP 2018-10-18 00:00:00 Completed [facility] Meningococcal B, OMV 2018-10-18 00:00:00 Completed [facility] Meningococcal Vaccine 2018-10-18 00:00:00 Completed [facility] TDAP 2018-10-18 00:00:00 Completed [facility] Meningococcal B, OMV 2018-10-18 00:00:00 Completed [facility] Meningococcal Vaccine 2018-10-18 00:00:00 Completed [facility] TDAP 2018-10-18 00:00:00 Completed [facility] Meningococcal B, OMV 2018-10-18 00:00:00 Completed [facility] Meningococcal Vaccine 2018-10-18 00:00:00 Completed [facility] TDAP 2018-10-18 00:00:00 Completed [facility] Meningococcal B, OMV 2018-10-18 00:00:00 Completed [facility] Meningococcal Vaccine 2018-10-18 00:00:00 Completed [facility] TDAP 2018-10-18 00:00:00 Completed [facility] Meningococcal B, OMV 2018-10-18 00:00:00 Completed [facility] Meningococcal Vaccine 2018-10-18 00:00:00 Completed [facility] TDAP 2018-10-18 00:00:00 Completed [facility] Meningococcal B, OMV 2018-10-18 00:00:00 Completed [facility] Meningococcal Vaccine 2018-10-18 00:00:00 Completed [facility] TDAP 2018-10-18 00:00:00 Completed [facility] Meningococcal B, OMV 2018-10-18 00:00:00 Completed [facility] Meningococcal Polysaccharide (groups A, C, Y and W-135) conjugate vaccine (MCV4P) 2018-10-18 00:00:00 Completed [facility] Meningococcal Vaccine 2018-10-18 00:00:00 Completed [facility] TDAP 2018-10-18 00:00:00 Completed [facility] [facility] 2018[facility]10-18 00:00:00 Completed [facility] Meningococcal Polysaccharide (groups A, C, Y and W-135) conjugate vaccine (MCV4P) 2018-10-18 00:00:00 Completed [facility] Meningococcal Vaccine 2018-10-18 00:00:00 Completed [facility] TDAP 2018-10-18 00:00:00 Completed [facility] Meningococcal B, OMV 2018-10-18 00:00:00 Completed [facility] Meningococcal Polysaccharide (groups A, C, Y and W-135) conjugate vaccine (MCV4P) 2018-10-18 00:00:00 Completed [facility] Meningococcal Vaccine 2018-10-18 00:00:00 Completed [facility] TDAP 2018-10-18 00:00:00 Completed [facility] Meningococcal B, OMV 2018-10-18 00:00:00 Completed [facility] Meningococcal Polysaccharide (groups A, C, Y and W-135) conjugate vaccine (MCV4P) 2018-10-18 00:00:00 Completed [facility] Meningococcal Vaccine 2018-10-18 00:00:00 Completed [facility] TDAP 2018-10-18 00:00:00 Completed [facility] Meningococcal B, OMV 2018-10-18 00:00:00 Completed [facility] Meningococcal Polysaccharide (groups A, C, Y and W-135) conjugate vaccine (MCV4P) 2018-10-18 00:00:00 Completed [facility] Meningococcal Vaccine 2018-10-18 00:00:00 Completed [facility] TDAP 2018-10-18 00:00:00 Completed [facility] Meningococcal B, OMV 2018-10-18 00:00:00 Completed [facility] Meningococcal Polysaccharide (groups A, C, Y and W-135) conjugate vaccine (MCV4P) 2018-10-18 00:00:00 Completed [facility] Meningococcal Vaccine 2018-10-18 00:00:00 Completed [facility] TDAP 2018-10-18 00:00:00 Completed [facility] Meningococcal B, OMV 2018-10-18 00:00:00 Completed [facility] Meningococcal Polysaccharide (groups A, C, Y and W-135) conjugate vaccine (MCV4P) 2018-10-18 00:00:00 Completed [facility] Meningococcal Vaccine 2018-10-18 00:00:00 Completed [facility] TDAP 2018-10-18 00:00:00 Completed [facility] Meningococcal B, OMV 2018-10-18 00:00:00 Completed [facility] Meningococcal Polysaccharide (groups A, C, Y and W-135) conjugate vaccine (MCV4P) 2018-10-18 00:00:00 Completed [facility] Meningococcal Vaccine 2018-10-18 00:00:00 Completed [facility] TDAP 2018-10-18 00:00:00 Completed [facility] Meningococcal B, OMV 2018-10-18 00:00:00 Completed [facility] Meningococcal Polysaccharide (groups A, C, Y and W-135) conjugate vaccine (MCV4P) 2018-10-18 00:00:00 Completed [facility] Meningococcal Vaccine 2018-10-18 00:00:00 Completed [facility] TDAP 2018-10-18 00:00:00 Completed [facility] Meningococcal B, OMV 2018-10-18 00:00:00 Completed [facility] Meningococcal Polysaccharide (groups A, C, Y and W-135) conjugate vaccine (MCV4P) 2018-10-18 00:00:00 Completed [facility] Meningococcal Vaccine 2018-10-18 00:00:00 Completed [facility] TDAP 2018-10-18 00:00:00 Completed [facility] Meningococcal B, OMV 2018-10-18 00:00:00 Completed [facility] Meningococcal Polysaccharide (groups A, C, Y and W-135) conjugate vaccine (MCV4P) 2018-10-18 00:00:00 Completed [facility] Meningococcal Vaccine 2018-10-18 00:00:00 Completed [facility] TDAP 2018-10-18 00:00:00 Completed [facility] Meningococcal B, OMV 2018-10-18 00:00:00 Completed [facility] Meningococcal Polysaccharide (groups A, C, Y and W-135) conjugate vaccine (MCV4P) 2018-10-18 00:00:00 Completed [facility] Meningococcal Vaccine 2018-10-18 00:00:00 Completed [facility] TDAP 2018-10-18 00:00:00 Completed [facility] Meningococcal B, OMV 2018-10-18 00:00:00 Completed [facility] Meningococcal Polysaccharide (groups A, C, Y and W-135) conjugate vaccine (MCV4P) 2018-10-18 00:00:00 Completed [facility] Meningococcal Vaccine 2018-10-18 00:00:00 Completed [facility] TDAP 2018-10-18 00:00:00 Completed [facility] Meningococcal B, OMV 2018-10-18 00:00:00 Completed [facility] Meningococcal Polysaccharide (groups A, C, Y and W-135) conjugate vaccine (MCV4P) 2018-10-18 00:00:00 Completed [facility] Meningococcal Vaccine 2018-10-18 00:00:00 Completed [facility] TDAP 2018-10-18 00:00:00 Completed [facility] Meningococcal B, OMV 2018-10-18 00:00:00 Completed [facility] Meningococcal Polysaccharide (groups A, C, Y and W-135) conjugate vaccine (MCV4P) 2018-10-18 00:00:00 Completed [facility] Meningococcal Vaccine 2018-10-18 00:00:00 Completed [facility] TDAP 2018-10-18 00:00:00 Completed [facility] Meningococcal B, OMV 2018-10-18 00:00:00 Completed [facility] Meningococcal Polysaccharide (groups A, C, Y and W-135) conjugate vaccine (MCV4P) 2018-10-18 00:00:00 Completed [facility] Meningococcal Vaccine 2018-10-18 00:00:00 Completed [facility] TDAP 2018-10-18 00:00:00 Completed [facility] Meningococcal B, OMV 2018-10-18 00:00:00 Completed [facility] Meningococcal Polysaccharide (groups A, C, Y and W-135) conjugate vaccine (MCV4P) 2018-10-18 00:00:00 Completed [facility] Meningococcal Vaccine 2018-10-18 00:00:00 Completed [facility] TDAP 2018-10-18 00:00:00 Completed [facility] Meningococcal B, OMV 2018-10-18 00:00:00 Completed [facility] Meningococcal Polysaccharide (groups A, C, Y and W-135) conjugate vaccine (MCV4P) 2018-10-18 00:00:00 Completed [facility] Meningococcal Vaccine 2018-10-18 00:00:00 Completed [facility] TDAP 2018-10-18 00:00:00 Completed [facility] Meningococcal B, OMV 2018-10-18 00:00:00 Completed [facility] Meningococcal Polysaccharide (groups A, C, Y and W-135) conjugate vaccine (MCV4P) 2018-10-18 00:00:00 Completed [facility] Meningococcal Vaccine 2018-10-18 00:00:00 Completed [facility] TDAP 2018-10-18 00:00:00 Completed [facility] Meningococcal B, OMV 2018-10-18 00:00:00 Completed [facility] Meningococcal Polysaccharide (groups A, C, Y and W-135) conjugate vaccine (MCV4P) 2018-10-18 00:00:00 Completed [facility] Meningococcal Vaccine 2018-10-18 00:00:00 Completed [facility] TDAP 2018-10-18 00:00:00 Completed [facility] Meningococcal B, OMV 2018-10-18 00:00:00 Completed [facility] Meningococcal Polysaccharide (groups A, C, Y and W-135) conjugate vaccine (MCV4P) 2018-10-18 00:00:00 Completed [facility] Meningococcal Vaccine 2018-10-18 00:00:00 Completed [facility] TDAP 2018-10-18 00:00:00 Completed [facility] Meningococcal B, OMV 2018-10-18 00:00:00 Completed [facility] Meningococcal Polysaccharide (groups A, C, Y and W-135) conjugate vaccine (MCV4P) 2018-10-18 00:00:00 Completed [facility] Meningococcal Vaccine 2018-10-18 00:00:00 Completed [facility] TDAP 2018-10-18 00:00:00 Completed [facility] Meningococcal B, OMV 2018-10-18 00:00:00 Completed [facility] Meningococcal Polysaccharide (groups A, C, Y and W-135) conjugate vaccine (MCV4P) 2018-10-18 00:00:00 Completed [facility] Meningococcal Vaccine 2018-10-18 00:00:00 Completed [facility] TDAP 2018-10-18 00:00:00 Completed [facility] Meningococcal B, OMV 2018-10-18 00:00:00 Completed [facility] Meningococcal Polysaccharide (groups A, C, Y and W-135) conjugate vaccine (MCV4P) 2018-10-18 00:00:00 Completed [facility] Meningococcal Vaccine 2018-10-18 00:00:00 Completed [facility] TDAP 2018-10-18 00:00:00 Completed [facility] Meningococcal B, OMV 2018-10-18 00:00:00 Completed [facility] Meningococcal Polysaccharide (groups A, C, Y and W-135) conjugate vaccine (MCV4P) 2018-10-18 00:00:00 Completed [facility] Meningococcal Vaccine 2018-10-18 00:00:00 Completed [facility] TDAP 2018-10-18 00:00:00 Completed [facility] Meningococcal B, OMV 2018-10-18 00:00:00 Completed [facility] Meningococcal Polysaccharide (groups A, C, Y and W-135) conjugate vaccine (MCV4P) 2018-10-18 00:00:00 Completed [facility] DTAP 2006-10-25 00:00:00 Completed [facility] Hepatitis A Adult 2006-10-25 00:00:00 Completed [facility] Polio (IPV/OPV) 2006-10-25 00:00:00 Completed [facility] DTAP 2006-10-25 00:00:00 Completed [facility] Hepatitis A Adult 2006-10-25 00:00:00 Completed [facility] Polio (IPV/OPV) 2006-10-25 00:00:00 Completed [facility] DTAP 2006-10-25 00:00:00 Completed [facility] Hepatitis A Adult 2006-10-25 00:00:00 Completed [facility] Polio (IPV/OPV) 2006-10-25 00:00:00 Completed [facility] DTAP 2006-10-25 00:00:00 Completed [facility] Hepatitis A Adult 2006-10-25 00:00:00 Completed [facility] Polio (IPV/OPV) 2006-10-25 00:00:00 Completed [facility] DTAP 2006-10-25 00:00:00 Completed [facility] Hepatitis A Adult 2006-10-25 00:00:00 Completed [facility] Polio (IPV/OPV) 2006-10-25 00:00:00 Completed [facility] DTAP 2006-10-25 00:00:00 Completed [facility] Hepatitis A Adult 2006-10-25 00:00:00 Completed [facility] Polio (IPV/OPV) 2006-10-25 00:00:00 Completed [facility] DTAP 2006-10-25 00:00:00 Completed [facility] Hepatitis A Adult 2006-10-25 00:00:00 Completed [facility] Polio (IPV/OPV) 2006-10-25 00:00:00 Completed [facility] DTAP 2006-10-25 00:00:00 Completed [facility] Hepatitis A Adult 2006-10-25 00:00:00 Completed [facility] Polio (IPV/OPV) 2006-10-25 00:00:00 Completed [facility] DTAP 2006-10-25 00:00:00 Completed [facility] Hepatitis A Adult 2006-10-25 00:00:00 Completed [facility] Polio (IPV/OPV) 2006-10-25 00:00:00 Completed [facility] DTAP 2006-10-25 00:00:00 Completed [facility] Hepatitis A Adult 2006-10-25 00:00:00 Completed [facility] Polio (IPV/OPV) 2006-10-25 00:00:00 Completed [facility] DTAP 2006-10-25 00:00:00 Completed [facility] Hepatitis A Adult 2006-10-25 00:00:00 Completed [facility] Polio (IPV/OPV) 2006-10-25 00:00:00 Completed [facility] DTAP 2006-10-25 00:00:00 Completed [facility] Hepatitis A Adult 2006-10-25 00:00:00 Completed [facility] Polio (IPV/OPV) 2006-10-25 00:00:00 Completed [facility] DTAP 2006-10-25 00:00:00 Completed [facility] Hepatitis A Adult 2006-10-25 00:00:00 Completed [facility] Polio (IPV/OPV) 2006-10-25 00:00:00 Completed [facility] DTAP 2006-10-25 00:00:00 Completed [facility] Hepatitis A Adult 2006-10-25 00:00:00 Completed [facility] Polio (IPV/OPV) 2006-10-25 00:00:00 Completed [facility] DTAP 2006-10-25 00:00:00 Completed [facility] Hepatitis A Adult 2006-10-25 00:00:00 Completed [facility] Polio (IPV/OPV) 2006-10-25 00:00:00 Completed [facility] DTAP 2006-10-25 00:00:00 Completed [facility] Hepatitis A Adult 2006-10-25 00:00:00 Completed [facility] Polio (IPV/OPV) 2006-10-25 00:00:00 Completed [facility] DTAP 2006-10-25 00:00:00 Completed [facility] Hepatitis A Adult 2006-10-25 00:00:00 Completed [facility] Polio (IPV/OPV) 2006-10-25 00:00:00 Completed [facility] DTAP 2006-10-25 00:00:00 Completed [facility] Hepatitis A Adult 2006-10-25 00:00:00 Completed [facility] Polio (IPV/OPV) 2006-10-25 00:00:00 Completed [facility] DTAP 2006-10-25 00:00:00 Completed [facility] Hepatitis A Adult 2006-10-25 00:00:00 Completed [facility] Polio (IPV/OPV) 2006-10-25 00:00:00 Completed [facility] DTAP 2006-10-25 00:00:00 Completed [facility] Hepatitis A Adult 2006-10-25 00:00:00 Completed [facility] Polio (IPV/OPV) 2006-10-25 00:00:00 Completed [facility] DTAP 2006-10-25 00:00:00 Completed [facility] Hepatitis A Adult 2006-10-25 00:00:00 Completed [facility] Polio (IPV/OPV) 2006-10-25 00:00:00 Completed [facility] DTAP 2006-10-25 00:00:00 Completed [facility] Hepatitis A Adult 2006-10-25 00:00:00 Completed [facility] Polio (IPV/OPV) 2006-10-25 00:00:00 Completed [facility] DTAP 2006-10-25 00:00:00 Completed [facility] Hepatitis A Adult 2006-10-25 00:00:00 Completed [facility] Polio (IPV/OPV) 2006-10-25 00:00:00 Completed [facility] DTAP 2006-10-25 00:00:00 Completed [facility] Hepatitis A Adult 2006-10-25 00:00:00 Completed [facility] Polio (IPV/OPV) 2006-10-25 00:00:00 Completed [facility] DTAP 2006-10-25 00:00:00 Completed [facility] Hepatitis A Adult 2006-10-25 00:00:00 Completed [facility] Polio (IPV/OPV) 2006-10-25 00:00:00 Completed [facility] DTAP 2006-10-25 00:00:00 Completed [facility] Hepatitis A Adult 2006-10-25 00:00:00 Completed [facility] Polio (IPV/OPV) 2006-10-25 00:00:00 Completed [facility] DTAP 2006-10-25 00:00:00 Completed [facility] Hepatitis A Adult 2006-10-25 00:00:00 Completed [facility] Polio (IPV/OPV) 2006-10-25 00:00:00 Completed [facility] DTAP 2006-10-25 00:00:00 Completed [facility] Hepatitis A Adult 2006-10-25 00:00:00 Completed [facility] Polio (IPV/OPV) 2006-10-25 00:00:00 Completed [facility] DTAP 2006-10-25 00:00:00 Completed [facility] Hepatitis A Adult 2006-10-25 00:00:00 Completed [facility] Polio (IPV/OPV) 2006-10-25 00:00:00 Completed [facility] DTAP 2006-10-25 00:00:00 Completed [facility] Hepatitis A Adult 2006-10-25 00:00:00 Completed [facility] Polio (IPV/OPV) 2006-10-25 00:00:00 Completed [facility] DTAP 2006-10-25 00:00:00 Completed [facility] Hepatitis A Adult 2006-10-25 00:00:00 Completed [facility] Polio (IPV/OPV) 2006-10-25 00:00:00 Completed [facility] DTAP 2006-10-25 00:00:00 Completed [facility] Hepatitis A Adult 2006-10-25 00:00:00 Completed [facility] Polio (IPV/OPV) 2006-10-25 00:00:00 Completed [facility] DTAP 2006-10-25 00:00:00 Completed [facility] Hepatitis A Adult 2006-10-25 00:00:00 Completed [facility] Polio (IPV/OPV) 2006-10-25 00:00:00 Completed [facility] DTAP 2006-10-25 00:00:00 Completed [facility] Hepatitis A Adult 2006-10-25 00:00:00 Completed [facility] Polio (IPV/OPV) 2006-10-25 00:00:00 Completed [facility] DTAP 2006-10-25 00:00:00 Completed [facility] Hepatitis A Adult 2006-10-25 00:00:00 Completed [facility] Polio (IPV/OPV) 2006-10-25 00:00:00 Completed [facility] DTAP 2006-10-25 00:00:00 Completed [facility] Hepatitis A Adult 2006-10-25 00:00:00 Completed [facility] Polio (IPV/OPV) 2006-10-25 00:00:00 Completed [facility] DTAP 2006-10-25 00:00:00 Completed [facility] Hepatitis A Adult 2006-10-25 00:00:00 Completed [facility] Polio (IPV/OPV) 2006-10-25 00:00:00 Completed [facility] DTAP 2006-10-25 00:00:00 Completed [facility] Hepatitis A Adult 2006-10-25 00:00:00 Completed [facility] Polio (IPV/OPV) 2006-10-25 00:00:00 Completed [facility] DTaP, Unspecified Formulation 2006-10-25 00:00:00 Completed [facility] HEPA,NOS 2006-10-25 00:00:00 Completed [facility] IPV 2006-10-25 00:00:00 Completed [facility] DTAP 2006-10-25 00:00:00 Completed [facility] Hepatitis A Adult 2006-10-25 00:00:00 Completed [facility] Polio (IPV/OPV) 2006-10-25 00:00:00 Completed [facility] DTaP, Unspecified Formulation 2006-10-25 00:00:00 Completed [facility] HEPA,NOS 2006-10-25 00:00:00 Completed [facility] IPV 2006-10-25 00:00:00 Completed [facility] DTAP 2006-10-25 00:00:00 Completed [facility] Hepatitis A Adult 2006-10-25 00:00:00 Completed [facility] Polio (IPV/OPV) 2006-10-25 00:00:00 Completed [facility] DTaP, Unspecified Formulation 2006-10-25 00:00:00 Completed [facility] HEPA,NOS 2006-10-25 00:00:00 Completed [facility] IPV 2006-10-25 00:00:00 Completed [facility] DTAP 2006-10-25 00:00:00 Completed [facility] Hepatitis A Adult 2006-10-25 00:00:00 Completed [facility] Polio (IPV/OPV) 2006-10-25 00:00:00 Completed [facility] DTaP, Unspecified Formulation 2006-10-25 00:00:00 Completed [facility] HEPA,NOS 2006-10-25 00:00:00 Completed [facility] IPV 2006-10-25 00:00:00 Completed [facility] DTAP 2006-10-25 00:00:00 Completed [facility] Hepatitis A Adult 2006-10-25 00:00:00 Completed [facility] Polio (IPV/OPV) 2006-10-25 00:00:00 Completed [facility] DTaP, Unspecified Formulation 2006-10-25 00:00:00 Completed [facility] HEPA,NOS 2006-10-25 00:00:00 Completed [facility] IPV 2006-10-25 00:00:00 Completed [facility] DTAP 2006-10-25 00:00:00 Completed [facility] Hepatitis A Adult 2006-10-25 00:00:00 Completed [facility] Polio (IPV/OPV) 2006-10-25 00:00:00 Completed [facility] DTaP, Unspecified Formulation 2006-10-25 00:00:00 Completed [facility] HEPA,NOS 2006-10-25 00:00:00 Completed [facility] IPV 2006-10-25 00:00:00 Completed [facility] DTAP 2006-10-25 00:00:00 Completed [facility] Hepatitis A Adult 2006-10-25 00:00:00 Completed [facility] Polio (IPV/OPV) 2006-10-25 00:00:00 Completed [facility] DTaP, Unspecified Formulation 2006-10-25 00:00:00 Completed [facility] HEPA,NOS 2006-10-25 00:00:00 Completed [facility] IPV 2006-10-25 00:00:00 Completed [facility] DTAP 2006-10-25 00:00:00 Completed [facility] Hepatitis A Adult 2006-10-25 00:00:00 Completed [facility] Polio (IPV/OPV) 2006-10-25 00:00:00 Completed [facility] DTaP, Unspecified Formulation 2006-10-25 00:00:00 Completed [facility] HEPA,NOS 2006-10-25 00:00:00 Completed [facility] IPV 2006-10-25 00:00:00 Completed [facility] DTAP 2006-10-25 00:00:00 Completed [facility] Hepatitis A Adult 2006-10-25 00:00:00 Completed [facility] Polio (IPV/OPV) 2006-10-25 00:00:00 Completed [facility] DTaP, Unspecified Formulation 2006-10-25 00:00:00 Completed [facility] HEPA,NOS 2006-10-25 00:00:00 Completed [facility] IPV 2006-10-25 00:00:00 Completed [facility] DTAP 2006-10-25 00:00:00 Completed [facility] Hepatitis A Adult 2006-10-25 00:00:00 Completed [facility] Polio (IPV/OPV) 2006-10-25 00:00:00 Completed [facility] DTaP, Unspecified Formulation 2006-10-25 00:00:00 Completed [facility] HEPA,NOS 2006-10-25 00:00:00 Completed [facility] IPV 2006-10-25 00:00:00 Completed [facility] DTAP 2006-10-25 00:00:00 Completed [facility] Hepatitis A Adult 2006-10-25 00:00:00 Completed [facility] Polio (IPV/OPV) 2006-10-25 00:00:00 Completed [facility] DTaP, Unspecified Formulation 2006-10-25 00:00:00 Completed [facility] HEPA,NOS 2006-10-25 00:00:00 Completed [facility] IPV 2006-10-25 00:00:00 Completed [facility] DTAP 2006-10-25 00:00:00 Completed [facility] Hepatitis A Adult 2006-10-25 00:00:00 Completed [facility] Polio (IPV/OPV) 2006-10-25 00:00:00 Completed [facility] DTaP, Unspecified Formulation 2006-10-25 00:00:00 Completed [facility] HEPA,NOS 2006-10-25 00:00:00 Completed [facility] IPV 2006-10-25 00:00:00 Completed [facility] DTAP 2006-10-25 00:00:00 Completed [facility] Hepatitis A Adult 2006-10-25 00:00:00 Completed [facility] Polio (IPV/OPV) 2006-10-25 00:00:00 Completed [facility] DTaP, Unspecified Formulation 2006-10-25 00:00:00 Completed [facility] HEPA,NOS 2006-10-25 00:00:00 Completed [facility] IPV 2006-10-25 00:00:00 Completed [facility] DTAP 2006-10-25 00:00:00 Completed [facility] Hepatitis A Adult 2006-10-25 00:00:00 Completed [facility] Polio (IPV/OPV) 2006-10-25 00:00:00 Completed [facility] DTaP, Unspecified Formulation 2006-10-25 00:00:00 Completed [facility] HEPA,NOS 2006-10-25 00:00:00 Completed [facility] IPV 2006-10-25 00:00:00 Completed [facility] DTAP 2006-10-25 00:00:00 Completed [facility] Hepatitis A Adult 2006-10-25 00:00:00 Completed [facility] Polio (IPV/OPV) 2006-10-25 00:00:00 Completed [facility] DTaP, Unspecified Formulation 2006-10-25 00:00:00 Completed [facility] HEPA,NOS 2006-10-25 00:00:00 Completed [facility] IPV 2006-10-25 00:00:00 Completed [facility] DTAP 2006-10-25 00:00:00 Completed [facility] Hepatitis A Adult 2006-10-25 00:00:00 Completed [facility] Polio (IPV/OPV) 2006-10-25 00:00:00 Completed [facility] DTaP, Unspecified Formulation 2006-10-25 00:00:00 Completed [facility] HEPA,NOS 2006-10-25 00:00:00 Completed [facility] IPV 2006-10-25 00:00:00 Completed [facility] DTAP 2006-10-25 00:00:00 Completed [facility] Hepatitis A Adult 2006-10-25 00:00:00 Completed [facility] Polio (IPV/OPV) 2006-10-25 00:00:00 Completed [facility] DTaP, Unspecified Formulation 2006-10-25 00:00:00 Completed [facility] HEPA,NOS 2006-10-25 00:00:00 Completed [facility] IPV 2006-10-25 00:00:00 Completed [facility] DTAP 2006-10-25 00:00:00 Completed [facility] Hepatitis A Adult 2006-10-25 00:00:00 Completed [facility] Polio (IPV/OPV) 2006-10-25 00:00:00 Completed [facility] DTaP, Unspecified Formulation 2006-10-25 00:00:00 Completed [facility] HEPA,NOS 2006-10-25 00:00:00 Completed [facility] IPV 2006-10-25 00:00:00 Completed [facility] DTAP 2006-10-25 00:00:00 Completed [facility] Hepatitis A Adult 2006-10-25 00:00:00 Completed [facility] Polio (IPV/OPV) 2006-10-25 00:00:00 Completed [facility] DTaP, Unspecified Formulation 2006-10-25 00:00:00 Completed [facility] HEPA,NOS 2006-10-25 00:00:00 Completed [facility] IPV 2006-10-25 00:00:00 Completed [facility] DTAP 2006-10-25 00:00:00 Completed [facility] Hepatitis A Adult 2006-10-25 00:00:00 Completed [facility] Polio (IPV/OPV) 2006-10-25 00:00:00 Completed [facility] DTaP, Unspecified Formulation 2006-10-25 00:00:00 Completed [facility] HEPA,NOS 2006-10-25 00:00:00 Completed [facility] IPV 2006-10-25 00:00:00 Completed [facility] DTAP 2006-10-25 00:00:00 Completed [facility] Hepatitis A Adult 2006-10-25 00:00:00 Completed [facility] Polio (IPV/OPV) 2006-10-25 00:00:00 Completed [facility] DTaP, Unspecified Formulation 2006-10-25 00:00:00 Completed [facility] HEPA,NOS 2006-10-25 00:00:00 Completed [facility] IPV 2006-10-25 00:00:00 Completed [facility] DTAP 2006-10-25 00:00:00 Completed [facility] Hepatitis A Adult 2006-10-25 00:00:00 Completed [facility] Polio (IPV/OPV) 2006-10-25 00:00:00 Completed [facility] DTaP, Unspecified Formulation 2006-10-25 00:00:00 Completed [facility] HEPA,NOS 2006-10-25 00:00:00 Completed [facility] IPV 2006-10-25 00:00:00 Completed [facility] DTAP 2006-10-25 00:00:00 Completed [facility] Hepatitis A Adult 2006-10-25 00:00:00 Completed [facility] Polio (IPV/OPV) 2006-10-25 00:00:00 Completed [facility] DTaP, Unspecified Formulation 2006-10-25 00:00:00 Completed [facility] HEPA,NOS 2006-10-25 00:00:00 Completed [facility] IPV 2006-10-25 00:00:00 Completed [facility] DTAP 2006-10-25 00:00:00 Completed [facility] Hepatitis A Adult 2006-10-25 00:00:00 Completed [facility] Polio (IPV/OPV) 2006-10-25 00:00:00 Completed [facility] DTaP, Unspecified Formulation 2006-10-25 00:00:00 Completed [facility] HEPA,NOS 2006-10-25 00:00:00 Completed [facility] IPV 2006-10-25 00:00:00 Completed [facility] DTAP 2006-10-25 00:00:00 Completed [facility] Hepatitis A Adult 2006-10-25 00:00:00 Completed [facility] Polio (IPV/OPV) 2006-10-25 00:00:00 Completed [facility] DTaP, Unspecified Formulation 2006-10-25 00:00:00 Completed [facility] HEPA,NOS 2006-10-25 00:00:00 Completed [facility] IPV 2006-10-25 00:00:00 Completed [facility] DTAP 2006-10-25 00:00:00 Completed [facility] Hepatitis A Adult 2006-10-25 00:00:00 Completed [facility] Polio (IPV/OPV) 2006-10-25 00:00:00 Completed [facility] DTaP, Unspecified Formulation 2006-10-25 00:00:00 Completed [facility] HEPA,NOS 2006-10-25 00:00:00 Completed [facility] IPV 2006-10-25 00:00:00 Completed [facility] DTAP 2005-09-20 00:00:00 Completed [facility] HIB 3 Dose Schedule 2005-09-20 00:00:00 Completed [facility] Hepatitis A Adult 2005-09-20 00:00:00 Completed [facility] Hep B, Adol or Pedi Dosage 2005-09-20 00:00:00 Completed [facility] Pneumococcal 13 Conjugate, PCV13 (Prevnar 13) 2005-09-20 00:00:00 Completed [facility] Polio (IPV/OPV) 2005-09-20 00:00:00 Completed [facility] DTAP 2005-09-20 00:00:00 Completed [facility] HIB 3 Dose Schedule 2005-09-20 00:00:00 Completed [facility] Hepatitis A Adult 2005-09-20 00:00:00 Completed [facility] Hep B, Adol or Pedi Dosage 2005-09-20 00:00:00 Completed [facility] Pneumococcal 13 Conjugate, PCV13 (Prevnar 13) 2005-09-20 00:00:00 Completed [facility] Polio (IPV/OPV) 2005-09-20 00:00:00 Completed [facility] DTAP 2005-09-20 00:00:00 Completed [facility] HIB 3 Dose Schedule 2005-09-20 00:00:00 Completed [facility] Hepatitis A Adult 2005-09-20 00:00:00 Completed [facility] Hep B, Adol or Pedi Dosage 2005-09-20 00:00:00 Completed [facility] Pneumococcal 13 Conjugate, PCV13 (Prevnar 13) 2005-09-20 00:00:00 Completed [facility] Polio (IPV/OPV) 2005-09-20 00:00:00 Completed [facility] DTAP 2005-09-20 00:00:00 Completed [facility] HIB 3 Dose Schedule 2005-09-20 00:00:00 Completed [facility] Hepatitis A Adult 2005-09-20 00:00:00 Completed [facility] Hep B, Adol or Pedi Dosage 2005-09-20 00:00:00 Completed [facility] Pneumococcal 13 Conjugate, PCV13 (Prevnar 13) 2005-09-20 00:00:00 Completed [facility] Polio (IPV/OPV) 2005-09-20 00:00:00 Completed [facility] DTAP 2005-09-20 00:00:00 Completed [facility] HIB 3 Dose Schedule 2005-09-20 00:00:00 Completed [facility] Hepatitis A Adult 2005-09-20 00:00:00 Completed [facility] Hep B, Adol or Pedi Dosage 2005-09-20 00:00:00 Completed [facility] Pneumococcal 13 Conjugate, PCV13 (Prevnar 13) 2005-09-20 00:00:00 Completed [facility] Polio (IPV/OPV) 2005-09-20 00:00:00 Completed [facility] DTAP 2005-09-20 00:00:00 Completed [facility] HIB 3 Dose Schedule 2005-09-20 00:00:00 Completed [facility] Hepatitis A Adult 2005-09-20 00:00:00 Completed [facility] Hep B, Adol or Pedi Dosage 2005-09-20 00:00:00 Completed [facility] Pneumococcal 13 Conjugate, PCV13 (Prevnar 13) 2005-09-20 00:00:00 Completed [facility] Polio (IPV/OPV) 2005-09-20 00:00:00 Completed [facility] DTAP 2005-09-20 00:00:00 Completed [facility] HIB 3 Dose Schedule 2005-09-20 00:00:00 Completed [facility] Hepatitis A Adult 2005-09-20 00:00:00 Completed [facility] Hep B, Adol or Pedi Dosage 2005-09-20 00:00:00 Completed [facility] Pneumococcal 13 Conjugate, PCV13 (Prevnar 13) 2005-09-20 00:00:00 Completed [facility] Polio (IPV/OPV) 2005-09-20 00:00:00 Completed [facility] DTAP 2005-09-20 00:00:00 Completed [facility] HIB 3 Dose Schedule 2005-09-20 00:00:00 Completed [facility] Hepatitis A Adult 2005-09-20 00:00:00 Completed [facility] Hep B, Adol or Pedi Dosage 2005-09-20 00:00:00 Completed [facility] Pneumococcal 13 Conjugate, PCV13 (Prevnar 13) 2005-09-20 00:00:00 Completed [facility] Polio (IPV/OPV) 2005-09-20 00:00:00 Completed [facility] DTAP 2005-09-20 00:00:00 Completed [facility] HIB 3 Dose Schedule 2005-09-20 00:00:00 Completed [facility] Hepatitis A Adult 2005-09-20 00:00:00 Completed [facility] Hep B, Adol or Pedi Dosage 2005-09-20 00:00:00 Completed [facility] Pneumococcal 13 Conjugate, PCV13 (Prevnar 13) 2005-09-20 00:00:00 Completed [facility] Polio (IPV/OPV) 2005-09-20 00:00:00 Completed [facility] DTAP 2005-09-20 00:00:00 Completed [facility] HIB 3 Dose Schedule 2005-09-20 00:00:00 Completed [facility] Hepatitis A Adult 2005-09-20 00:00:00 Completed [facility] Hep B, Adol or Pedi Dosage 2005-09-20 00:00:00 Completed [facility] Pneumococcal 13 Conjugate, PCV13 (Prevnar 13) 2005-09-20 00:00:00 Completed [facility] Polio (IPV/OPV) 2005-09-20 00:00:00 Completed [facility] DTAP 2005-09-20 00:00:00 Completed [facility] HIB 3 Dose Schedule 2005-09-20 00:00:00 Completed [facility] Hepatitis A Adult 2005-09-20 00:00:00 Completed [facility] Hep B, Adol or Pedi Dosage 2005-09-20 00:00:00 Completed [facility] Pneumococcal 13 Conjugate, PCV13 (Prevnar 13) 2005-09-20 00:00:00 Completed [facility] Polio (IPV/OPV) 2005-09-20 00:00:00 Completed [facility] DTAP 2005-09-20 00:00:00 Completed [facility] HIB 3 Dose Schedule 2005-09-20 00:00:00 Completed [facility] Hepatitis A Adult 2005-09-20 00:00:00 Completed [facility] Hep B, Adol or Pedi Dosage 2005-09-20 00:00:00 Completed [facility] Pneumococcal 13 Conjugate, PCV13 (Prevnar 13) 2005-09-20 00:00:00 Completed [facility] Polio (IPV/OPV) 2005-09-20 00:00:00 Completed [facility] DTAP 2005-09-20 00:00:00 Completed [facility] HIB 3 Dose Schedule 2005-09-20 00:00:00 Completed [facility] Hepatitis A Adult 2005-09-20 00:00:00 Completed [facility] Hep B, Adol or Pedi Dosage 2005-09-20 00:00:00 Completed [facility] Pneumococcal 13 Conjugate, PCV13 (Prevnar 13) 2005-09-20 00:00:00 Completed [facility] Polio (IPV/OPV) 2005-09-20 00:00:00 Completed [facility] DTAP 2005-09-20 00:00:00 Completed [facility] HIB 3 Dose Schedule 2005-09-20 00:00:00 Completed [facility] Hepatitis A Adult 2005-09-20 00:00:00 Completed [facility] Hep B, Adol or Pedi Dosage 2005-09-20 00:00:00 Completed [facility] Pneumococcal 13 Conjugate, PCV13 (Prevnar 13) 2005-09-20 00:00:00 Completed [facility] Polio (IPV/OPV) 2005-09-20 00:00:00 Completed [facility] DTAP 2005-09-20 00:00:00 Completed [facility] HIB 3 Dose Schedule 2005-09-20 00:00:00 Completed [facility] Hepatitis A Adult 2005-09-20 00:00:00 Completed [facility] Hep B, Adol or Pedi Dosage 2005-09-20 00:00:00 Completed [facility] Pneumococcal 13 Conjugate, PCV13 (Prevnar 13) 2005-09-20 00:00:00 Completed [facility] Polio (IPV/OPV) 2005-09-20 00:00:00 Completed [facility] DTAP 2005-09-20 00:00:00 Completed [facility] HIB 3 Dose Schedule 2005-09-20 00:00:00 Completed [facility] Hepatitis A Adult 2005-09-20 00:00:00 Completed [facility] Hep B, Adol or Pedi Dosage 2005-09-20 00:00:00 Completed [facility] Pneumococcal 13 Conjugate, PCV13 (Prevnar 13) 2005-09-20 00:00:00 Completed [facility] Polio (IPV/OPV) 2005-09-20 00:00:00 Completed [facility] DTAP 2005-09-20 00:00:00 Completed [facility] HIB 3 Dose Schedule 2005-09-20 00:00:00 Completed [facility] Hepatitis A Adult 2005-09-20 00:00:00 Completed [facility] Hep B, Adol or Pedi Dosage 2005-09-20 00:00:00 Completed [facility] Pneumococcal 13 Conjugate, PCV13 (Prevnar 13) 2005-09-20 00:00:00 Completed [facility] Polio (IPV/OPV) 2005-09-20 00:00:00 Completed [facility] DTAP 2005-09-20 00:00:00 Completed [facility] HIB 3 Dose Schedule 2005-09-20 00:00:00 Completed [facility] Hepatitis A Adult 2005-09-20 00:00:00 Completed [facility] Hep B, Adol or Pedi Dosage 2005-09-20 00:00:00 Completed [facility] Pneumococcal 13 Conjugate, PCV13 (Prevnar 13) 2005-09-20 00:00:00 Completed [facility] Polio (IPV/OPV) 2005-09-20 00:00:00 Completed [facility] DTAP 2005-09-20 00:00:00 Completed [facility] HIB 3 Dose Schedule 2005-09-20 00:00:00 Completed [facility] Hepatitis A Adult 2005-09-20 00:00:00 Completed [facility] Hep B, Adol or Pedi Dosage 2005-09-20 00:00:00 Completed [facility] Pneumococcal 13 Conjugate, PCV13 (Prevnar 13) 2005-09-20 00:00:00 Completed [facility] Polio (IPV/OPV) 2005-09-20 00:00:00 Completed [facility] DTAP 2005-09-20 00:00:00 Completed [facility] HIB 3 Dose Schedule 2005-09-20 00:00:00 Completed [facility] Hepatitis A Adult 2005-09-20 00:00:00 Completed [facility] Hep B, Adol or Pedi Dosage 2005-09-20 00:00:00 Completed [facility] Pneumococcal 13 Conjugate, PCV13 (Prevnar 13) 2005-09-20 00:00:00 Completed [facility] Polio (IPV/OPV) 2005-09-20 00:00:00 Completed [facility] DTAP 2005-09-20 00:00:00 Completed [facility] HIB 3 Dose Schedule 2005-09-20 00:00:00 Completed [facility] Hepatitis A Adult 2005-09-20 00:00:00 Completed [facility] Hep B, Adol or Pedi Dosage 2005-09-20 00:00:00 Completed [facility] Pneumococcal 13 Conjugate, PCV13 (Prevnar 13) 2005-09-20 00:00:00 Completed [facility] Polio (IPV/OPV) 2005-09-20 00:00:00 Completed [facility] DTAP 2005-09-20 00:00:00 Completed [facility] HIB 3 Dose Schedule 2005-09-20 00:00:00 Completed [facility] Hepatitis A Adult 2005-09-20 00:00:00 Completed [facility] Hep B, Adol or Pedi Dosage 2005-09-20 00:00:00 Completed [facility] Pneumococcal 13 Conjugate, PCV13 (Prevnar 13) 2005-09-20 00:00:00 Completed [facility] Polio (IPV/OPV) 2005-09-20 00:00:00 Completed [facility] DTAP 2005-09-20 00:00:00 Completed [facility] HIB 3 Dose Schedule 2005-09-20 00:00:00 Completed [facility] Hepatitis A Adult 2005-09-20 00:00:00 Completed [facility] Hep B, Adol or Pedi Dosage 2005-09-20 00:00:00 Completed [facility] Pneumococcal 13 Conjugate, PCV13 (Prevnar 13) 2005-09-20 00:00:00 Completed [facility] Polio (IPV/OPV) 2005-09-20 00:00:00 Completed [facility] DTAP 2005-09-20 00:00:00 Completed [facility] HIB 3 Dose Schedule 2005-09-20 00:00:00 Completed [facility] Hepatitis A Adult 2005-09-20 00:00:00 Completed [facility] Hep B, Adol or Pedi Dosage 2005-09-20 00:00:00 Completed [facility] Pneumococcal 13 Conjugate, PCV13 (Prevnar 13) 2005-09-20 00:00:00 Completed [facility] Polio (IPV/OPV) 2005-09-20 00:00:00 Completed [facility] DTAP 2005-09-20 00:00:00 Completed [facility] HIB 3 Dose Schedule 2005-09-20 00:00:00 Completed [facility] Hepatitis A Adult 2005-09-20 00:00:00 Completed [facility] Hep B, Adol or Pedi Dosage 2005-09-20 00:00:00 Completed [facility] Pneumococcal 13 Conjugate, PCV13 (Prevnar 13) 2005-09-20 00:00:00 Completed [facility] Polio (IPV/OPV) 2005-09-20 00:00:00 Completed [facility] DTAP 2005-09-20 00:00:00 Completed [facility] HIB 3 Dose Schedule 2005-09-20 00:00:00 Completed [facility] Hepatitis A Adult 2005-09-20 00:00:00 Completed [facility] Hep B, Adol or Pedi Dosage 2005-09-20 00:00:00 Completed [facility] Pneumococcal 13 Conjugate, PCV13 (Prevnar 13) 2005-09-20 00:00:00 Completed [facility] Polio (IPV/OPV) 2005-09-20 00:00:00 Completed [facility] DTAP 2005-09-20 00:00:00 Completed [facility] HIB 3 Dose Schedule 2005-09-20 00:00:00 Completed [facility] Hepatitis A Adult 2005-09-20 00:00:00 Completed [facility] Hep B, Adol or Pedi Dosage 2005-09-20 00:00:00 Completed [facility] Pneumococcal 13 Conjugate, PCV13 (Prevnar 13) 2005-09-20 00:00:00 Completed [facility] Polio (IPV/OPV) 2005-09-20 00:00:00 Completed [facility] DTAP 2005-09-20 00:00:00 Completed [facility] HIB 3 Dose Schedule 2005-09-20 00:00:00 Completed [facility] Hepatitis A Adult 2005-09-20 00:00:00 Completed [facility] Hep B, Adol or Pedi Dosage 2005-09-20 00:00:00 Completed [facility] Pneumococcal 13 Conjugate, PCV13 (Prevnar 13) 2005-09-20 00:00:00 Completed [facility] Polio (IPV/OPV) 2005-09-20 00:00:00 Completed [facility] DTAP 2005-09-20 00:00:00 Completed [facility] HIB 3 Dose Schedule 2005-09-20 00:00:00 Completed [facility] Hepatitis A Adult 2005-09-20 00:00:00 Completed [facility] Hep B, Adol or Pedi Dosage 2005-09-20 00:00:00 Completed [facility] Pneumococcal 13 Conjugate, PCV13 (Prevnar 13) 2005-09-20 00:00:00 Completed [facility] Polio (IPV/OPV) 2005-09-20 00:00:00 Completed [facility] DTAP 2005-09-20 00:00:00 Completed [facility] HIB 3 Dose Schedule 2005-09-20 00:00:00 Completed [facility] Hepatitis A Adult 2005-09-20 00:00:00 Completed [facility] Hep B, Adol or Pedi Dosage 2005-09-20 00:00:00 Completed [facility] Pneumococcal 13 Conjugate, PCV13 (Prevnar 13) 2005-09-20 00:00:00 Completed [facility] Polio (IPV/OPV) 2005-09-20 00:00:00 Completed [facility] DTAP 2005-09-20 00:00:00 Completed [facility] HIB 3 Dose Schedule 2005-09-20 00:00:00 Completed [facility] Hepatitis A Adult 2005-09-20 00:00:00 Completed [facility] Hep B, Adol or Pedi Dosage 2005-09-20 00:00:00 Completed [facility] Pneumococcal 13 Conjugate, PCV13 (Prevnar 13) 2005-09-20 00:00:00 Completed [facility] Polio (IPV/OPV) 2005-09-20 00:00:00 Completed [facility] DTAP 2005-09-20 00:00:00 Completed [facility] HIB 3 Dose Schedule 2005-09-20 00:00:00 Completed [facility] Hepatitis A Adult 2005-09-20 00:00:00 Completed [facility] Hep B, Adol or Pedi Dosage 2005-09-20 00:00:00 Completed [facility] Pneumococcal 13 Conjugate, PCV13 (Prevnar 13) 2005-09-20 00:00:00 Completed [facility] Polio (IPV/OPV) 2005-09-20 00:00:00 Completed [facility] DTAP 2005-09-20 00:00:00 Completed [facility] HIB 3 Dose Schedule 2005-09-20 00:00:00 Completed [facility] Hepatitis A Adult 2005-09-20 00:00:00 Completed [facility] Hep B, Adol or Pedi Dosage 2005-09-20 00:00:00 Completed [facility] Pneumococcal 13 Conjugate, PCV13 (Prevnar 13) 2005-09-20 00:00:00 Completed [facility] Polio (IPV/OPV) 2005-09-20 00:00:00 Completed [facility] DTAP 2005-09-20 00:00:00 Completed [facility] HIB 3 Dose Schedule 2005-09-20 00:00:00 Completed [facility] Hepatitis A Adult 2005-09-20 00:00:00 Completed [facility] Hep B, Adol or Pedi Dosage 2005-09-20 00:00:00 Completed [facility] Pneumococcal 13 Conjugate, PCV13 (Prevnar 13) 2005-09-20 00:00:00 Completed [facility] Polio (IPV/OPV) 2005-09-20 00:00:00 Completed [facility] DTAP 2005-09-20 00:00:00 Completed [facility] HIB 3 Dose Schedule 2005-09-20 00:00:00 Completed [facility] Hepatitis A Adult 2005-09-20 00:00:00 Completed [facility] Hep B, Adol or Pedi Dosage 2005-09-20 00:00:00 Completed [facility] Pneumococcal 13 Conjugate, PCV13 (Prevnar 13) 2005-09-20 00:00:00 Completed [facility] Polio (IPV/OPV) 2005-09-20 00:00:00 Completed [facility] DTAP 2005-09-20 00:00:00 Completed [facility] HIB 3 Dose Schedule 2005-09-20 00:00:00 Completed [facility] Hepatitis A Adult 2005-09-20 00:00:00 Completed [facility] Hep B, Adol or Pedi Dosage 2005-09-20 00:00:00 Completed [facility] Pneumococcal 13 Conjugate, PCV13 (Prevnar 13) 2005-09-20 00:00:00 Completed [facility] Polio (IPV/OPV) 2005-09-20 00:00:00 Completed [facility] DTAP 2005-09-20 00:00:00 Completed [facility] HIB 3 Dose Schedule 2005-09-20 00:00:00 Completed [facility] Hepatitis A Adult 2005-09-20 00:00:00 Completed [facility] Hep B, Adol or Pedi Dosage 2005-09-20 00:00:00 Completed [facility] Pneumococcal 13 Conjugate, PCV13 (Prevnar 13) 2005-09-20 00:00:00 Completed [facility] Polio (IPV/OPV) 2005-09-20 00:00:00 Completed [facility] DTAP 2005-09-20 00:00:00 Completed [facility] HIB 3 Dose Schedule 2005-09-20 00:00:00 Completed [facility] Hepatitis A Adult 2005-09-20 00:00:00 Completed [facility] Hep B, Adol or Pedi Dosage 2005-09-20 00:00:00 Completed [facility] Pneumococcal 13 Conjugate, PCV13 (Prevnar 13) 2005-09-20 00:00:00 Completed [facility] Polio (IPV/OPV) 2005-09-20 00:00:00 Completed [facility] DTaP, Unspecified Formulation 2005-09-20 00:00:00 Completed [facility] HEPATITIS A 2005-09-20 00:00:00 Completed [facility] HIB 4 Dose Schedule 2005-09-20 00:00:00 Completed [facility] Pneumococcal 7 Conjugate, PCV7 (Prevnar7) 2005-09-20 00:00:00 Completed [facility] IPV 2005-09-20 00:00:00 Completed [facility] DTAP 2005-09-20 00:00:00 Completed [facility] HIB 3 Dose Schedule 2005-09-20 00:00:00 Completed [facility] Hepatitis A Adult 2005-09-20 00:00:00 Completed [facility] Hep B, Adol or Pedi Dosage 2005-09-20 00:00:00 Completed [facility] Pneumococcal 13 Conjugate, PCV13 (Prevnar 13) 2005-09-20 00:00:00 Completed [facility] Polio (IPV/OPV) 2005-09-20 00:00:00 Completed [facility] DTaP, Unspecified Formulation 2005-09-20 00:00:00 Completed [facility] HEPATITIS A 2005-09-20 00:00:00 Completed [facility] HIB 4 Dose Schedule 2005-09-20 00:00:00 Completed [facility] Pneumococcal 7 Conjugate, PCV7 (Prevnar7) 2005-09-20 00:00:00 Completed [facility] IPV 2005-09-20 00:00:00 Completed [facility] DTAP 2005-09-20 00:00:00 Completed [facility] HIB 3 Dose Schedule 2005-09-20 00:00:00 Completed [facility] Hepatitis A Adult 2005-09-20 00:00:00 Completed [facility] Hep B, Adol or Pedi Dosage 2005-09-20 00:00:00 Completed [facility] Pneumococcal 13 Conjugate, PCV13 (Prevnar 13) 2005-09-20 00:00:00 Completed [facility] Polio (IPV/OPV) 2005-09-20 00:00:00 Completed [facility] DTaP, Unspecified Formulation 2005-09-20 00:00:00 Completed [facility] HEPATITIS A 2005-09-20 00:00:00 Completed [facility] HIB 4 Dose Schedule 2005-09-20 00:00:00 Completed [facility] Pneumococcal 7 Conjugate, PCV7 (Prevnar7) 2005-09-20 00:00:00 Completed [facility] IPV 2005-09-20 00:00:00 Completed [facility] DTAP 2005-09-20 00:00:00 Completed [facility] HIB 3 Dose Schedule 2005-09-20 00:00:00 Completed [facility] Hepatitis A Adult 2005-09-20 00:00:00 Completed [facility] Hep B, Adol or Pedi Dosage 2005-09-20 00:00:00 Completed [facility] Pneumococcal 13 Conjugate, PCV13 (Prevnar 13) 2005-09-20 00:00:00 Completed [facility] Polio (IPV/OPV) 2005-09-20 00:00:00 Completed [facility] DTaP, Unspecified Formulation 2005-09-20 00:00:00 Completed [facility] HEPATITIS A 2005-09-20 00:00:00 Completed [facility] HIB 4 Dose Schedule 2005-09-20 00:00:00 Completed [facility] Pneumococcal 7 Conjugate, PCV7 (Prevnar7) 2005-09-20 00:00:00 Completed [facility] IPV 2005-09-20 00:00:00 Completed [facility] DTAP 2005-09-20 00:00:00 Completed [facility] HIB 3 Dose Schedule 2005-09-20 00:00:00 Completed [facility] Hepatitis A Adult 2005-09-20 00:00:00 Completed [facility] Hep B, Adol or Pedi Dosage 2005-09-20 00:00:00 Completed [facility] Pneumococcal 13 Conjugate, PCV13 (Prevnar 13) 2005-09-20 00:00:00 Completed [facility] Polio (IPV/OPV) 2005-09-20 00:00:00 Completed [facility] DTaP, Unspecified Formulation 2005-09-20 00:00:00 Completed [facility] HEPATITIS A 2005-09-20 00:00:00 Completed [facility] HIB 4 Dose Schedule 2005-09-20 00:00:00 Completed [facility] Pneumococcal 7 Conjugate, PCV7 (Prevnar7) 2005-09-20 00:00:00 Completed [facility] IPV 2005-09-20 00:00:00 Completed [facility] DTAP 2005-09-20 00:00:00 Completed [facility] HIB 3 Dose Schedule 2005-09-20 00:00:00 Completed [facility] Hepatitis A Adult 2005-09-20 00:00:00 Completed [facility] Hep B, Adol or Pedi Dosage 2005-09-20 00:00:00 Completed [facility] Pneumococcal 13 Conjugate, PCV13 (Prevnar 13) 2005-09-20 00:00:00 Completed [facility] Polio (IPV/OPV) 2005-09-20 00:00:00 Completed [facility] DTaP, Unspecified Formulation 2005-09-20 00:00:00 Completed [facility] HEPATITIS A 2005-09-20 00:00:00 Completed [facility] HIB 4 Dose Schedule 2005-09-20 00:00:00 Completed [facility] Pneumococcal 7 Conjugate, PCV7 (Prevnar7) 2005-09-20 00:00:00 Completed [facility] IPV 2005-09-20 00:00:00 Completed [facility] DTAP 2005-09-20 00:00:00 Completed [facility] HIB 3 Dose Schedule 2005-09-20 00:00:00 Completed [facility] Hepatitis A Adult 2005-09-20 00:00:00 Completed [facility] Hep B, Adol or Pedi Dosage 2005-09-20 00:00:00 Completed [facility] Pneumococcal 13 Conjugate, PCV13 (Prevnar 13) 2005-09-20 00:00:00 Completed [facility] Polio (IPV/OPV) 2005-09-20 00:00:00 Completed [facility] DTaP, Unspecified Formulation 2005-09-20 00:00:00 Completed [facility] HEPATITIS A 2005-09-20 00:00:00 Completed [facility] HIB 4 Dose Schedule 2005-09-20 00:00:00 Completed [facility] Pneumococcal 7 Conjugate, PCV7 (Prevnar7) 2005-09-20 00:00:00 Completed [facility] IPV 2005-09-20 00:00:00 Completed [facility] DTAP 2005-09-20 00:00:00 Completed [facility] HIB 3 Dose Schedule 2005-09-20 00:00:00 Completed [facility] Hepatitis A Adult 2005-09-20 00:00:00 Completed [facility] Hep B, Adol or Pedi Dosage 2005-09-20 00:00:00 Completed [facility] Pneumococcal 13 Conjugate, PCV13 (Prevnar 13) 2005-09-20 00:00:00 Completed [facility] Polio (IPV/OPV) 2005-09-20 00:00:00 Completed [facility] DTaP, Unspecified Formulation 2005-09-20 00:00:00 Completed [facility] HEPATITIS A 2005-09-20 00:00:00 Completed [facility] HIB 4 Dose Schedule 2005-09-20 00:00:00 Completed [facility] Pneumococcal 7 Conjugate, PCV7 (Prevnar7) 2005-09-20 00:00:00 Completed [facility] IPV 2005-09-20 00:00:00 Completed [facility] DTAP 2005-09-20 00:00:00 Completed [facility] HIB 3 Dose Schedule 2005-09-20 00:00:00 Completed [facility] Hepatitis A Adult 2005-09-20 00:00:00 Completed [facility] Hep B, Adol or Pedi Dosage 2005-09-20 00:00:00 Completed [facility] Pneumococcal 13 Conjugate, PCV13 (Prevnar 13) 2005-09-20 00:00:00 Completed [facility] Polio (IPV/OPV) 2005-09-20 00:00:00 Completed [facility] DTaP, Unspecified Formulation 2005-09-20 00:00:00 Completed [facility] HEPATITIS A 2005-09-20 00:00:00 Completed [facility] HIB 4 Dose Schedule 2005-09-20 00:00:00 Completed [facility] Pneumococcal 7 Conjugate, PCV7 (Prevnar7) 2005-09-20 00:00:00 Completed [facility] IPV 2005-09-20 00:00:00 Completed [facility] DTAP 2005-09-20 00:00:00 Completed [facility] HIB 3 Dose Schedule 2005-09-20 00:00:00 Completed [facility] Hepatitis A Adult 2005-09-20 00:00:00 Completed [facility] Hep B, Adol or Pedi Dosage 2005-09-20 00:00:00 Completed [facility] Pneumococcal 13 Conjugate, PCV13 (Prevnar 13) 2005-09-20 00:00:00 Completed [facility] Polio (IPV/OPV) 2005-09-20 00:00:00 Completed [facility] DTaP, Unspecified Formulation 2005-09-20 00:00:00 Completed [facility] HEPATITIS A 2005-09-20 00:00:00 Completed [facility] HIB 4 Dose Schedule 2005-09-20 00:00:00 Completed [facility] Pneumococcal 7 Conjugate, PCV7 (Prevnar7) 2005-09-20 00:00:00 Completed [facility] IPV 2005-09-20 00:00:00 Completed [facility] DTAP 2005-09-20 00:00:00 Completed [facility] HIB 3 Dose Schedule 2005-09-20 00:00:00 Completed [facility] Hepatitis A Adult 2005-09-20 00:00:00 Completed [facility] Hep B, Adol or Pedi Dosage 2005-09-20 00:00:00 Completed [facility] Pneumococcal 13 Conjugate, PCV13 (Prevnar 13) 2005-09-20 00:00:00 Completed [facility] Polio (IPV/OPV) 2005-09-20 00:00:00 Completed [facility] DTaP, Unspecified Formulation 2005-09-20 00:00:00 Completed [facility] HEPATITIS A 2005-09-20 00:00:00 Completed [facility] HIB 4 Dose Schedule 2005-09-20 00:00:00 Completed [facility] Pneumococcal 7 Conjugate, PCV7 (Prevnar7) 2005-09-20 00:00:00 Completed [facility] IPV 2005-09-20 00:00:00 Completed [facility] DTAP 2005-09-20 00:00:00 Completed [facility] HIB 3 Dose Schedule 2005-09-20 00:00:00 Completed [facility] Hepatitis A Adult 2005-09-20 00:00:00 Completed [facility] Hep B, Adol or Pedi Dosage 2005-09-20 00:00:00 Completed [facility] Pneumococcal 13 Conjugate, PCV13 (Prevnar 13) 2005-09-20 00:00:00 Completed [facility] Polio (IPV/OPV) 2005-09-20 00:00:00 Completed [facility] DTaP, Unspecified Formulation 2005-09-20 00:00:00 Completed [facility] HEPATITIS A 2005-09-20 00:00:00 Completed [facility] HIB 4 Dose Schedule 2005-09-20 00:00:00 Completed [facility] Pneumococcal 7 Conjugate, PCV7 (Prevnar7) 2005-09-20 00:00:00 Completed [facility] IPV 2005-09-20 00:00:00 Completed [facility] DTAP 2005-09-20 00:00:00 Completed [facility] HIB 3 Dose Schedule 2005-09-20 00:00:00 Completed [facility] Hepatitis A Adult 2005-09-20 00:00:00 Completed [facility] Hep B, Adol or Pedi Dosage 2005-09-20 00:00:00 Completed [facility] Pneumococcal 13 Conjugate, PCV13 (Prevnar 13) 2005-09-20 00:00:00 Completed [facility] Polio (IPV/OPV) 2005-09-20 00:00:00 Completed [facility] DTaP, Unspecified Formulation 2005-09-20 00:00:00 Completed [facility] HEPATITIS A 2005-09-20 00:00:00 Completed [facility] HIB 4 Dose Schedule 2005-09-20 00:00:00 Completed [facility] Pneumococcal 7 Conjugate, PCV7 (Prevnar7) 2005-09-20 00:00:00 Completed [facility] IPV 2005-09-20 00:00:00 Completed [facility] DTAP 2005-09-20 00:00:00 Completed [facility] HIB 3 Dose Schedule 2005-09-20 00:00:00 Completed [facility] Hepatitis A Adult 2005-09-20 00:00:00 Completed [facility] Hep B, Adol or Pedi Dosage 2005-09-20 00:00:00 Completed [facility] Pneumococcal 13 Conjugate, PCV13 (Prevnar 13) 2005-09-20 00:00:00 Completed [facility] Polio (IPV/OPV) 2005-09-20 00:00:00 Completed [facility] DTaP, Unspecified Formulation 2005-09-20 00:00:00 Completed [facility] HEPATITIS A 2005-09-20 00:00:00 Completed [facility] HIB 4 Dose Schedule 2005-09-20 00:00:00 Completed [facility] Pneumococcal 7 Conjugate, PCV7 (Prevnar7) 2005-09-20 00:00:00 Completed [facility] IPV 2005-09-20 00:00:00 Completed [facility] DTAP 2005-09-20 00:00:00 Completed [facility] HIB 3 Dose Schedule 2005-09-20 00:00:00 Completed [facility] Hepatitis A Adult 2005-09-20 00:00:00 Completed [facility] Hep B, Adol or Pedi Dosage 2005-09-20 00:00:00 Completed [facility] Pneumococcal 13 Conjugate, PCV13 (Prevnar 13) 2005-09-20 00:00:00 Completed [facility] Polio (IPV/OPV) 2005-09-20 00:00:00 Completed [facility] DTaP, Unspecified Formulation 2005-09-20 00:00:00 Completed [facility] HEPATITIS A 2005-09-20 00:00:00 Completed [facility] HIB 4 Dose Schedule 2005-09-20 00:00:00 Completed [facility] Pneumococcal 7 Conjugate, PCV7 (Prevnar7) 2005-09-20 00:00:00 Completed [facility] IPV 2005-09-20 00:00:00 Completed [facility] DTAP 2005-09-20 00:00:00 Completed [facility] HIB 3 Dose Schedule 2005-09-20 00:00:00 Completed [facility] Hepatitis A Adult 2005-09-20 00:00:00 Completed [facility] Hep B, Adol or Pedi Dosage 2005-09-20 00:00:00 Completed [facility] Pneumococcal 13 Conjugate, PCV13 (Prevnar 13) 2005-09-20 00:00:00 Completed [facility] Polio (IPV/OPV) 2005-09-20 00:00:00 Completed [facility] DTaP, Unspecified Formulation 2005-09-20 00:00:00 Completed [facility] HEPATITIS A 2005-09-20 00:00:00 Completed [facility] HIB 4 Dose Schedule 2005-09-20 00:00:00 Completed [facility] Pneumococcal 7 Conjugate, PCV7 (Prevnar7) 2005-09-20 00:00:00 Completed [facility] IPV 2005-09-20 00:00:00 Completed [facility] DTAP 2005-09-20 00:00:00 Completed [facility] HIB 3 Dose Schedule 2005-09-20 00:00:00 Completed [facility] Hepatitis A Adult 2005-09-20 00:00:00 Completed [facility] Hep B, Adol or Pedi Dosage 2005-09-20 00:00:00 Completed [facility] Pneumococcal 13 Conjugate, PCV13 (Prevnar 13) 2005-09-20 00:00:00 Completed [facility] Polio (IPV/OPV) 2005-09-20 00:00:00 Completed [facility] DTaP, Unspecified Formulation 2005-09-20 00:00:00 Completed [facility] HEPATITIS A 2005-09-20 00:00:00 Completed [facility] HIB 4 Dose Schedule 2005-09-20 00:00:00 Completed [facility] Pneumococcal 7 Conjugate, PCV7 (Prevnar7) 2005-09-20 00:00:00 Completed [facility] IPV 2005-09-20 00:00:00 Completed [facility] DTAP 2005-09-20 00:00:00 Completed [facility] HIB 3 Dose Schedule 2005-09-20 00:00:00 Completed [facility] Hepatitis A Adult 2005-09-20 00:00:00 Completed [facility] Hep B, Adol or Pedi Dosage 2005-09-20 00:00:00 Completed [facility] Pneumococcal 13 Conjugate, PCV13 (Prevnar 13) 2005-09-20 00:00:00 Completed [facility] Polio (IPV/OPV) 2005-09-20 00:00:00 Completed [facility] DTaP, Unspecified Formulation 2005-09-20 00:00:00 Completed [facility] HEPATITIS A 2005-09-20 00:00:00 Completed [facility] HIB 4 Dose Schedule 2005-09-20 00:00:00 Completed [facility] Pneumococcal 7 Conjugate, PCV7 (Prevnar7) 2005-09-20 00:00:00 Completed [facility] IPV 2005-09-20 00:00:00 Completed [facility] DTAP 2005-09-20 00:00:00 Completed [facility] HIB 3 Dose Schedule 2005-09-20 00:00:00 Completed [facility] Hepatitis A Adult 2005-09-20 00:00:00 Completed [facility] Hep B, Adol or Pedi Dosage 2005-09-20 00:00:00 Completed [facility] Pneumococcal 13 Conjugate, PCV13 (Prevnar 13) 2005-09-20 00:00:00 Completed [facility] Polio (IPV/OPV) 2005-09-20 00:00:00 Completed [facility] DTaP, Unspecified Formulation 2005-09-20 00:00:00 Completed [facility] HEPATITIS A 2005-09-20 00:00:00 Completed [facility] HIB 4 Dose Schedule 2005-09-20 00:00:00 Completed [facility] Pneumococcal 7 Conjugate, PCV7 (Prevnar7) 2005-09-20 00:00:00 Completed [facility] IPV 2005-09-20 00:00:00 Completed [facility] DTAP 2005-09-20 00:00:00 Completed [facility] HIB 3 Dose Schedule 2005-09-20 00:00:00 Completed [facility] Hepatitis A Adult 2005-09-20 00:00:00 Completed [facility] Hep B, Adol or Pedi Dosage 2005-09-20 00:00:00 Completed [facility] Pneumococcal 13 Conjugate, PCV13 (Prevnar 13) 2005-09-20 00:00:00 Completed [facility] Polio (IPV/OPV) 2005-09-20 00:00:00 Completed [facility] DTaP, Unspecified Formulation 2005-09-20 00:00:00 Completed [facility] HEPATITIS A 2005-09-20 00:00:00 Completed [facility] HIB 4 Dose Schedule 2005-09-20 00:00:00 Completed [facility] Pneumococcal 7 Conjugate, PCV7 (Prevnar7) 2005-09-20 00:00:00 Completed [facility] IPV 2005-09-20 00:00:00 Completed [facility] DTAP 2005-09-20 00:00:00 Completed [facility] HIB 3 Dose Schedule 2005-09-20 00:00:00 Completed [facility] Hepatitis A Adult 2005-09-20 00:00:00 Completed [facility] Hep B, Adol or Pedi Dosage 2005-09-20 00:00:00 Completed [facility] Pneumococcal 13 Conjugate, PCV13 (Prevnar 13) 2005-09-20 00:00:00 Completed [facility] Polio (IPV/OPV) 2005-09-20 00:00:00 Completed [facility] DTaP, Unspecified Formulation 2005-09-20 00:00:00 Completed [facility] HEPATITIS A 2005-09-20 00:00:00 Completed [facility] HIB 4 Dose Schedule 2005-09-20 00:00:00 Completed [facility] Pneumococcal 7 Conjugate, PCV7 (Prevnar7) 2005-09-20 00:00:00 Completed [facility] IPV 2005-09-20 00:00:00 Completed [facility] DTAP 2005-09-20 00:00:00 Completed [facility] HIB 3 Dose Schedule 2005-09-20 00:00:00 Completed [facility] Hepatitis A Adult 2005-09-20 00:00:00 Completed [facility] Hep B, Adol or Pedi Dosage 2005-09-20 00:00:00 Completed [facility] Pneumococcal 13 Conjugate, PCV13 (Prevnar 13) 2005-09-20 00:00:00 Completed [facility] Polio (IPV/OPV) 2005-09-20 00:00:00 Completed [facility] DTaP, Unspecified Formulation 2005-09-20 00:00:00 Completed [facility] HEPATITIS A 2005-09-20 00:00:00 Completed [facility] HIB 4 Dose Schedule 2005-09-20 00:00:00 Completed [facility] Pneumococcal 7 Conjugate, PCV7 (Prevnar7) 2005-09-20 00:00:00 Completed [facility] IPV 2005-09-20 00:00:00 Completed [facility] DTAP 2005-09-20 00:00:00 Completed [facility] HIB 3 Dose Schedule 2005-09-20 00:00:00 Completed [facility] Hepatitis A Adult 2005-09-20 00:00:00 Completed [facility] Hep B, Adol or Pedi Dosage 2005-09-20 00:00:00 Completed [facility] Pneumococcal 13 Conjugate, PCV13 (Prevnar 13) 2005-09-20 00:00:00 Completed [facility] Polio (IPV/OPV) 2005-09-20 00:00:00 Completed [facility] DTaP, Unspecified Formulation 2005-09-20 00:00:00 Completed [facility] HEPATITIS A 2005-09-20 00:00:00 Completed [facility] HIB 4 Dose Schedule 2005-09-20 00:00:00 Completed [facility] Pneumococcal 7 Conjugate, PCV7 (Prevnar7) 2005-09-20 00:00:00 Completed [facility] IPV 2005-09-20 00:00:00 Completed [facility] DTAP 2005-09-20 00:00:00 Completed [facility] HIB 3 Dose Schedule 2005-09-20 00:00:00 Completed [facility] Hepatitis A Adult 2005-09-20 00:00:00 Completed [facility] Hep B, Adol or Pedi Dosage 2005-09-20 00:00:00 Completed [facility] Pneumococcal 13 Conjugate, PCV13 (Prevnar 13) 2005-09-20 00:00:00 Completed [facility] Polio (IPV/OPV) 2005-09-20 00:00:00 Completed [facility] DTaP, Unspecified Formulation 2005-09-20 00:00:00 Completed [facility] HEPATITIS A 2005-09-20 00:00:00 Completed [facility] HIB 4 Dose Schedule 2005-09-20 00:00:00 Completed [facility] Pneumococcal 7 Conjugate, PCV7 (Prevnar7) 2005-09-20 00:00:00 Completed [facility] IPV 2005-09-20 00:00:00 Completed [facility] DTAP 2005-09-20 00:00:00 Completed [facility] HIB 3 Dose Schedule 2005-09-20 00:00:00 Completed [facility] Hepatitis A Adult 2005-09-20 00:00:00 Completed [facility] Hep B, Adol or Pedi Dosage 2005-09-20 00:00:00 Completed [facility] Pneumococcal 13 Conjugate, PCV13 (Prevnar 13) 2005-09-20 00:00:00 Completed [facility] Polio (IPV/OPV) 2005-09-20 00:00:00 Completed [facility] DTaP, Unspecified Formulation 2005-09-20 00:00:00 Completed [facility] HEPATITIS A 2005-09-20 00:00:00 Completed [facility] HIB 4 Dose Schedule 2005-09-20 00:00:00 Completed [facility] Pneumococcal 7 Conjugate, PCV7 (Prevnar7) 2005-09-20 00:00:00 Completed [facility] IPV 2005-09-20 00:00:00 Completed [facility] DTAP 2005-09-20 00:00:00 Completed [facility] HIB 3 Dose Schedule 2005-09-20 00:00:00 Completed [facility] Hepatitis A Adult 2005-09-20 00:00:00 Completed [facility] Hep B, Adol or Pedi Dosage 2005-09-20 00:00:00 Completed [facility] Pneumococcal 13 Conjugate, PCV13 (Prevnar 13) 2005-09-20 00:00:00 Completed [facility] Polio (IPV/OPV) 2005-09-20 00:00:00 Completed [facility] DTaP, Unspecified Formulation 2005-09-20 00:00:00 Completed [facility] HEPATITIS A 2005-09-20 00:00:00 Completed [facility] HIB 4 Dose Schedule 2005-09-20 00:00:00 Completed [facility] Pneumococcal 7 Conjugate, PCV7 (Prevnar7) 2005-09-20 00:00:00 Completed [facility] IPV 2005-09-20 00:00:00 Completed [facility] DTAP 2004-07-22 00:00:00 Completed [facility] Hep B, Adol or Pedi Dosage 2004-07-22 00:00:00 Completed [facility] MMR 2004-07-22 00:00:00 Completed [facility] Polio (IPV/OPV) 2004-07-22 00:00:00 Completed [facility] Varicella (varivax)(chicken pox) 2004-07-22 00:00:00 Completed [facility] DTAP 2004-07-22 00:00:00 Completed [facility] Hep B, Adol or Pedi Dosage 2004-07-22 00:00:00 Completed [facility] MMR 2004-07-22 00:00:00 Completed [facility] Polio (IPV/OPV) 2004-07-22 00:00:00 Completed [facility] Varicella (varivax)(chicken pox) 2004-07-22 00:00:00 Completed [facility] DTAP 2004-07-22 00:00:00 Completed [facility] Hep B, Adol or Pedi Dosage 2004-07-22 00:00:00 Completed [facility] MMR 2004-07-22 00:00:00 Completed [facility] Polio (IPV/OPV) 2004-07-22 00:00:00 Completed [facility] Varicella (varivax)(chicken pox) 2004-07-22 00:00:00 Completed [facility] DTAP 2004-07-22 00:00:00 Completed [facility] Hep B, Adol or Pedi Dosage 2004-07-22 00:00:00 Completed [facility] MMR 2004-07-22 00:00:00 Completed [facility] Polio (IPV/OPV) 2004-07-22 00:00:00 Completed [facility] Varicella (varivax)(chicken pox) 2004-07-22 00:00:00 Completed [facility] DTAP 2004-07-22 00:00:00 Completed [facility] Hep B, Adol or Pedi Dosage 2004-07-22 00:00:00 Completed [facility] MMR 2004-07-22 00:00:00 Completed [facility] Polio (IPV/OPV) 2004-07-22 00:00:00 Completed [facility] Varicella (varivax)(chicken pox) 2004-07-22 00:00:00 Completed [facility] DTAP 2004-07-22 00:00:00 Completed [facility] Hep B, Adol or Pedi Dosage 2004-07-22 00:00:00 Completed [facility] MMR 2004-07-22 00:00:00 Completed [facility] Polio (IPV/OPV) 2004-07-22 00:00:00 Completed [facility] Varicella (varivax)(chicken pox) 2004-07-22 00:00:00 Completed [facility] DTAP 2004-07-22 00:00:00 Completed [facility] Hep B, Adol or Pedi Dosage 2004-07-22 00:00:00 Completed [facility] MMR 2004-07-22 00:00:00 Completed [facility] Polio (IPV/OPV) 2004-07-22 00:00:00 Completed [facility] Varicella (varivax)(chicken pox) 2004-07-22 00:00:00 Completed [facility] DTAP 2004-07-22 00:00:00 Completed [facility] Hep B, Adol or Pedi Dosage 2004-07-22 00:00:00 Completed [facility] MMR 2004-07-22 00:00:00 Completed [facility] Polio (IPV/OPV) 2004-07-22 00:00:00 Completed [facility] Varicella (varivax)(chicken pox) 2004-07-22 00:00:00 Completed [facility] DTAP 2004-07-22 00:00:00 Completed [facility] Hep B, Adol or Pedi Dosage 2004-07-22 00:00:00 Completed [facility] MMR 2004-07-22 00:00:00 Completed [facility] Polio (IPV/OPV) 2004-07-22 00:00:00 Completed [facility] Varicella (varivax)(chicken pox) 2004-07-22 00:00:00 Completed [facility] DTAP 2004-07-22 00:00:00 Completed [facility] Hep B, Adol or Pedi Dosage 2004-07-22 00:00:00 Completed [facility] MMR 2004-07-22 00:00:00 Completed [facility] Polio (IPV/OPV) 2004-07-22 00:00:00 Completed [facility] Varicella (varivax)(chicken pox) 2004-07-22 00:00:00 Completed [facility] DTAP 2004-07-22 00:00:00 Completed [facility] Hep B, Adol or Pedi Dosage 2004-07-22 00:00:00 Completed [facility] MMR 2004-07-22 00:00:00 Completed [facility] Polio (IPV/OPV) 2004-07-22 00:00:00 Completed [facility] Varicella (varivax)(chicken pox) 2004-07-22 00:00:00 Completed [facility] DTAP 2004-07-22 00:00:00 Completed [facility] Hep B, Adol or Pedi Dosage 2004-07-22 00:00:00 Completed [facility] MMR 2004-07-22 00:00:00 Completed [facility] Polio (IPV/OPV) 2004-07-22 00:00:00 Completed [facility] Varicella (varivax)(chicken pox) 2004-07-22 00:00:00 Completed [facility] DTAP 2004-07-22 00:00:00 Completed [facility] Hep B, Adol or Pedi Dosage 2004-07-22 00:00:00 Completed [facility] MMR 2004-07-22 00:00:00 Completed [facility] Polio (IPV/OPV) 2004-07-22 00:00:00 Completed [facility] Varicella (varivax)(chicken pox) 2004-07-22 00:00:00 Completed [facility] DTAP 2004-07-22 00:00:00 Completed [facility] Hep B, Adol or Pedi Dosage 2004-07-22 00:00:00 Completed [facility] MMR 2004-07-22 00:00:00 Completed [facility] Polio (IPV/OPV) 2004-07-22 00:00:00 Completed [facility] Varicella (varivax)(chicken pox) 2004-07-22 00:00:00 Completed [facility] DTAP 2004-07-22 00:00:00 Completed [facility] Hep B, Adol or Pedi Dosage 2004-07-22 00:00:00 Completed [facility] MMR 2004-07-22 00:00:00 Completed [facility] Polio (IPV/OPV) 2004-07-22 00:00:00 Completed [facility] Varicella (varivax)(chicken pox) 2004-07-22 00:00:00 Completed [facility] DTAP 2004-07-22 00:00:00 Completed [facility] Hep B, Adol or Pedi Dosage 2004-07-22 00:00:00 Completed [facility] MMR 2004-07-22 00:00:00 Completed [facility] Polio (IPV/OPV) 2004-07-22 00:00:00 Completed [facility] Varicella (varivax)(chicken pox) 2004-07-22 00:00:00 Completed [facility] DTAP 2004-07-22 00:00:00 Completed [facility] Hep B, Adol or Pedi Dosage 2004-07-22 00:00:00 Completed [facility] MMR 2004-07-22 00:00:00 Completed [facility] Polio (IPV/OPV) 2004-07-22 00:00:00 Completed [facility] Varicella (varivax)(chicken pox) 2004-07-22 00:00:00 Completed [facility] DTAP 2004-07-22 00:00:00 Completed [facility] Hep B, Adol or Pedi Dosage 2004-07-22 00:00:00 Completed [facility] MMR 2004-07-22 00:00:00 Completed [facility] Polio (IPV/OPV) 2004-07-22 00:00:00 Completed [facility] Varicella (varivax)(chicken pox) 2004-07-22 00:00:00 Completed [facility] DTAP 2004-07-22 00:00:00 Completed [facility] Hep B, Adol or Pedi Dosage 2004-07-22 00:00:00 Completed [facility] MMR 2004-07-22 00:00:00 Completed [facility] Polio (IPV/OPV) 2004-07-22 00:00:00 Completed [facility] Varicella (varivax)(chicken pox) 2004-07-22 00:00:00 Completed [facility] DTAP 2004-07-22 00:00:00 Completed [facility] Hep B, Adol or Pedi Dosage 2004-07-22 00:00:00 Completed [facility] MMR 2004-07-22 00:00:00 Completed [facility] Polio (IPV/OPV) 2004-07-22 00:00:00 Completed [facility] Varicella (varivax)(chicken pox) 2004-07-22 00:00:00 Completed [facility] DTAP 2004-07-22 00:00:00 Completed [facility] Hep B, Adol or Pedi Dosage 2004-07-22 00:00:00 Completed [facility] MMR 2004-07-22 00:00:00 Completed [facility] Polio (IPV/OPV) 2004-07-22 00:00:00 Completed [facility] Varicella (varivax)(chicken pox) 2004-07-22 00:00:00 Completed [facility] DTAP 2004-07-22 00:00:00 Completed [facility] Hep B, Adol or Pedi Dosage 2004-07-22 00:00:00 Completed [facility] MMR 2004-07-22 00:00:00 Completed [facility] Polio (IPV/OPV) 2004-07-22 00:00:00 Completed [facility] Varicella (varivax)(chicken pox) 2004-07-22 00:00:00 Completed [facility] DTAP 2004-07-22 00:00:00 Completed [facility] Hep B, Adol or Pedi Dosage 2004-07-22 00:00:00 Completed [facility] MMR 2004-07-22 00:00:00 Completed [facility] Polio (IPV/OPV) 2004-07-22 00:00:00 Completed [facility] Varicella (varivax)(chicken pox) 2004-07-22 00:00:00 Completed [facility] DTAP 2004-07-22 00:00:00 Completed [facility] Hep B, Adol or Pedi Dosage 2004-07-22 00:00:00 Completed [facility] MMR 2004-07-22 00:00:00 Completed [facility] Polio (IPV/OPV) 2004-07-22 00:00:00 Completed [facility] Varicella (varivax)(chicken pox) 2004-07-22 00:00:00 Completed [facility] DTAP 2004-07-22 00:00:00 Completed [facility] Hep B, Adol or Pedi Dosage 2004-07-22 00:00:00 Completed [facility] MMR 2004-07-22 00:00:00 Completed [facility] Polio (IPV/OPV) 2004-07-22 00:00:00 Completed [facility] Varicella (varivax)(chicken pox) 2004-07-22 00:00:00 Completed [facility] DTAP 2004-07-22 00:00:00 Completed [facility] Hep B, Adol or Pedi Dosage 2004-07-22 00:00:00 Completed [facility] MMR 2004-07-22 00:00:00 Completed [facility] Polio (IPV/OPV) 2004-07-22 00:00:00 Completed [facility] Varicella (varivax)(chicken pox) 2004-07-22 00:00:00 Completed [facility] DTAP 2004-07-22 00:00:00 Completed [facility] Hep B, Adol or Pedi Dosage 2004-07-22 00:00:00 Completed [facility] MMR 2004-07-22 00:00:00 Completed [facility] Polio (IPV/OPV) 2004-07-22 00:00:00 Completed [facility] Varicella (varivax)(chicken pox) 2004-07-22 00:00:00 Completed [facility] DTAP 2004-07-22 00:00:00 Completed [facility] Hep B, Adol or Pedi Dosage 2004-07-22 00:00:00 Completed [facility] MMR 2004-07-22 00:00:00 Completed [facility] Polio (IPV/OPV) 2004-07-22 00:00:00 Completed [facility] Varicella (varivax)(chicken pox) 2004-07-22 00:00:00 Completed [facility] DTAP 2004-07-22 00:00:00 Completed [facility] Hep B, Adol or Pedi Dosage 2004-07-22 00:00:00 Completed [facility] MMR 2004-07-22 00:00:00 Completed [facility] Polio (IPV/OPV) 2004-07-22 00:00:00 Completed [facility] Varicella (varivax)(chicken pox) 2004-07-22 00:00:00 Completed [facility] DTAP 2004-07-22 00:00:00 Completed [facility] Hep B, Adol or Pedi Dosage 2004-07-22 00:00:00 Completed [facility] MMR 2004-07-22 00:00:00 Completed [facility] Polio (IPV/OPV) 2004-07-22 00:00:00 Completed [facility] Varicella (varivax)(chicken pox) 2004-07-22 00:00:00 Completed [facility] DTAP 2004-07-22 00:00:00 Completed [facility] Hep B, Adol or Pedi Dosage 2004-07-22 00:00:00 Completed [facility] MMR 2004-07-22 00:00:00 Completed [facility] Polio (IPV/OPV) 2004-07-22 00:00:00 Completed [facility] Varicella (varivax)(chicken pox) 2004-07-22 00:00:00 Completed [facility] DTAP 2004-07-22 00:00:00 Completed [facility] Hep B, Adol or Pedi Dosage 2004-07-22 00:00:00 Completed [facility] MMR 2004-07-22 00:00:00 Completed [facility] Polio (IPV/OPV) 2004-07-22 00:00:00 Completed [facility] Varicella (varivax)(chicken pox) 2004-07-22 00:00:00 Completed [facility] DTAP 2004-07-22 00:00:00 Completed [facility] Hep B, Adol or Pedi Dosage 2004-07-22 00:00:00 Completed [facility] MMR 2004-07-22 00:00:00 Completed [facility] Polio (IPV/OPV) 2004-07-22 00:00:00 Completed [facility] Varicella (varivax)(chicken pox) 2004-07-22 00:00:00 Completed [facility] DTAP 2004-07-22 00:00:00 Completed [facility] Hep B, Adol or Pedi Dosage 2004-07-22 00:00:00 Completed [facility] MMR 2004-07-22 00:00:00 Completed [facility] Polio (IPV/OPV) 2004-07-22 00:00:00 Completed [facility] Varicella (varivax)(chicken pox) 2004-07-22 00:00:00 Completed [facility] DTAP 2004-07-22 00:00:00 Completed [facility] Hep B, Adol or Pedi Dosage 2004-07-22 00:00:00 Completed [facility] MMR 2004-07-22 00:00:00 Completed [facility] Polio (IPV/OPV) 2004-07-22 00:00:00 Completed [facility] Varicella (varivax)(chicken pox) 2004-07-22 00:00:00 Completed [facility] DTAP 2004-07-22 00:00:00 Completed [facility] Hep B, Adol or Pedi Dosage 2004-07-22 00:00:00 Completed [facility] MMR 2004-07-22 00:00:00 Completed [facility] Polio (IPV/OPV) 2004-07-22 00:00:00 Completed [facility] Varicella (varivax)(chicken pox) 2004-07-22 00:00:00 Completed [facility] DTAP 2004-07-22 00:00:00 Completed [facility] Hep B, Adol or Pedi Dosage 2004-07-22 00:00:00 Completed [facility] MMR 2004-07-22 00:00:00 Completed [facility] Polio (IPV/OPV) 2004-07-22 00:00:00 Completed [facility] Varicella (varivax)(chicken pox) 2004-07-22 00:00:00 Completed [facility] DTAP 2004-07-22 00:00:00 Completed [facility] Hep B, Adol or Pedi Dosage 2004-07-22 00:00:00 Completed [facility] MMR 2004-07-22 00:00:00 Completed [facility] Polio (IPV/OPV) 2004-07-22 00:00:00 Completed [facility] Varicella (varivax)(chicken pox) 2004-07-22 00:00:00 Completed [facility] DTaP, Unspecified Formulation 2004-07-22 00:00:00 Completed [facility] IPV 2004-07-22 00:00:00 Completed [facility] DTAP 2004-07-22 00:00:00 Completed [facility] Hep B, Adol or Pedi Dosage 2004-07-22 00:00:00 Completed [facility] MMR 2004-07-22 00:00:00 Completed [facility] Polio (IPV/OPV) 2004-07-22 00:00:00 Completed [facility] Varicella (varivax)(chicken pox) 2004-07-22 00:00:00 Completed [facility] DTaP, Unspecified Formulation 2004-07-22 00:00:00 Completed [facility] IPV 2004-07-22 00:00:00 Completed [facility] DTAP 2004-07-22 00:00:00 Completed [facility] Hep B, Adol or Pedi Dosage 2004-07-22 00:00:00 Completed [facility] MMR 2004-07-22 00:00:00 Completed [facility] Polio (IPV/OPV) 2004-07-22 00:00:00 Completed [facility] Varicella (varivax)(chicken pox) 2004-07-22 00:00:00 Completed [facility] DTaP, Unspecified Formulation 2004-07-22 00:00:00 Completed [facility] IPV 2004-07-22 00:00:00 Completed [facility] DTAP 2004-07-22 00:00:00 Completed [facility] Hep B, Adol or Pedi Dosage 2004-07-22 00:00:00 Completed [facility] MMR 2004-07-22 00:00:00 Completed [facility] Polio (IPV/OPV) 2004-07-22 00:00:00 Completed [facility] Varicella (varivax)(chicken pox) 2004-07-22 00:00:00 Completed [facility] DTaP, Unspecified Formulation 2004-07-22 00:00:00 Completed [facility] IPV 2004-07-22 00:00:00 Completed [facility] DTAP 2004-07-22 00:00:00 Completed [facility] Hep B, Adol or Pedi Dosage 2004-07-22 00:00:00 Completed [facility] MMR 2004-07-22 00:00:00 Completed [facility] Polio (IPV/OPV) 2004-07-22 00:00:00 Completed [facility] Varicella (varivax)(chicken pox) 2004-07-22 00:00:00 Completed [facility] DTaP, Unspecified Formulation 2004-07-22 00:00:00 Completed [facility] IPV 2004-07-22 00:00:00 Completed [facility] DTAP 2004-07-22 00:00:00 Completed [facility] Hep B, Adol or Pedi Dosage 2004-07-22 00:00:00 Completed [facility] MMR 2004-07-22 00:00:00 Completed [facility] Polio (IPV/OPV) 2004-07-22 00:00:00 Completed [facility] Varicella (varivax)(chicken pox) 2004-07-22 00:00:00 Completed [facility] DTaP, Unspecified Formulation 2004-07-22 00:00:00 Completed [facility] IPV 2004-07-22 00:00:00 Completed [facility] DTAP 2004-07-22 00:00:00 Completed [facility] Hep B, Adol or Pedi Dosage 2004-07-22 00:00:00 Completed [facility] MMR 2004-07-22 00:00:00 Completed [facility] Polio (IPV/OPV) 2004-07-22 00:00:00 Completed [facility] Varicella (varivax)(chicken pox) 2004-07-22 00:00:00 Completed [facility] DTaP, Unspecified Formulation 2004-07-22 00:00:00 Completed [facility] IPV 2004-07-22 00:00:00 Completed [facility] DTAP 2004-07-22 00:00:00 Completed [facility] Hep B, Adol or Pedi Dosage 2004-07-22 00:00:00 Completed [facility] MMR 2004-07-22 00:00:00 Completed [facility] Polio (IPV/OPV) 2004-07-22 00:00:00 Completed [facility] Varicella (varivax)(chicken pox) 2004-07-22 00:00:00 Completed [facility] DTaP, Unspecified Formulation 2004-07-22 00:00:00 Completed [facility] IPV 2004-07-22 00:00:00 Completed [facility] DTAP 2004-07-22 00:00:00 Completed [facility] Hep B, Adol or Pedi Dosage 2004-07-22 00:00:00 Completed [facility] MMR 2004-07-22 00:00:00 Completed [facility] Polio (IPV/OPV) 2004-07-22 00:00:00 Completed [facility] Varicella (varivax)(chicken pox) 2004-07-22 00:00:00 Completed [facility] DTaP, Unspecified Formulation 2004-07-22 00:00:00 Completed [facility] IPV 2004-07-22 00:00:00 Completed [facility] DTAP 2004-07-22 00:00:00 Completed [facility] Hep B, Adol or Pedi Dosage 2004-07-22 00:00:00 Completed [facility] MMR 2004-07-22 00:00:00 Completed [facility] Polio (IPV/OPV) 2004-07-22 00:00:00 Completed [facility] Varicella (varivax)(chicken pox) 2004-07-22 00:00:00 Completed [facility] DTaP, Unspecified Formulation 2004-07-22 00:00:00 Completed [facility] IPV 2004-07-22 00:00:00 Completed [facility] DTAP 2004-07-22 00:00:00 Completed [facility] Hep B, Adol or Pedi Dosage 2004-07-22 00:00:00 Completed [facility] MMR 2004-07-22 00:00:00 Completed [facility] Polio (IPV/OPV) 2004-07-22 00:00:00 Completed [facility] Varicella (varivax)(chicken pox) 2004-07-22 00:00:00 Completed [facility] DTaP, Unspecified Formulation 2004-07-22 00:00:00 Completed [facility] IPV 2004-07-22 00:00:00 Completed [facility] DTAP 2004-07-22 00:00:00 Completed [facility] Hep B, Adol or Pedi Dosage 2004-07-22 00:00:00 Completed [facility] MMR 2004-07-22 00:00:00 Completed [facility] Polio (IPV/OPV) 2004-07-22 00:00:00 Completed [facility] Varicella (varivax)(chicken pox) 2004-07-22 00:00:00 Completed [facility] DTaP, Unspecified Formulation 2004-07-22 00:00:00 Completed [facility] IPV 2004-07-22 00:00:00 Completed [facility] DTAP 2004-07-22 00:00:00 Completed [facility] Hep B, Adol or Pedi Dosage 2004-07-22 00:00:00 Completed [facility] MMR 2004-07-22 00:00:00 Completed [facility] Polio (IPV/OPV) 2004-07-22 00:00:00 Completed [facility] Varicella (varivax)(chicken pox) 2004-07-22 00:00:00 Completed [facility] DTaP, Unspecified Formulation 2004-07-22 00:00:00 Completed [facility] IPV 2004-07-22 00:00:00 Completed [facility] DTAP 2004-07-22 00:00:00 Completed [facility] Hep B, Adol or Pedi Dosage 2004-07-22 00:00:00 Completed [facility] MMR 2004-07-22 00:00:00 Completed [facility] Polio (IPV/OPV) 2004-07-22 00:00:00 Completed [facility] Varicella (varivax)(chicken pox) 2004-07-22 00:00:00 Completed [facility] DTaP, Unspecified Formulation 2004-07-22 00:00:00 Completed [facility] IPV 2004-07-22 00:00:00 Completed [facility] DTAP 2004-07-22 00:00:00 Completed [facility] Hep B, Adol or Pedi Dosage 2004-07-22 00:00:00 Completed [facility] MMR 2004-07-22 00:00:00 Completed [facility] Polio (IPV/OPV) 2004-07-22 00:00:00 Completed [facility] Varicella (varivax)(chicken pox) 2004-07-22 00:00:00 Completed [facility] DTaP, Unspecified Formulation 2004-07-22 00:00:00 Completed [facility] IPV 2004-07-22 00:00:00 Completed [facility] DTAP 2004-07-22 00:00:00 Completed [facility] Hep B, Adol or Pedi Dosage 2004-07-22 00:00:00 Completed [facility] MMR 2004-07-22 00:00:00 Completed [facility] Polio (IPV/OPV) 2004-07-22 00:00:00 Completed [facility] Varicella (varivax)(chicken pox) 2004-07-22 00:00:00 Completed [facility] DTaP, Unspecified Formulation 2004-07-22 00:00:00 Completed [facility] IPV 2004-07-22 00:00:00 Completed [facility] DTAP 2004-07-22 00:00:00 Completed [facility] Hep B, Adol or Pedi Dosage 2004-07-22 00:00:00 Completed [facility] MMR 2004-07-22 00:00:00 Completed [facility] Polio (IPV/OPV) 2004-07-22 00:00:00 Completed [facility] Varicella (varivax)(chicken pox) 2004-07-22 00:00:00 Completed [facility] DTaP, Unspecified Formulation 2004-07-22 00:00:00 Completed [facility] IPV 2004-07-22 00:00:00 Completed [facility] DTAP 2004-07-22 00:00:00 Completed [facility] Hep B, Adol or Pedi Dosage 2004-07-22 00:00:00 Completed [facility] MMR 2004-07-22 00:00:00 Completed [facility] Polio (IPV/OPV) 2004-07-22 00:00:00 Completed [facility] Varicella (varivax)(chicken pox) 2004-07-22 00:00:00 Completed [facility] DTaP, Unspecified Formulation 2004-07-22 00:00:00 Completed [facility] IPV 2004-07-22 00:00:00 Completed [facility] DTAP 2004-07-22 00:00:00 Completed [facility] Hep B, Adol or Pedi Dosage 2004-07-22 00:00:00 Completed [facility] MMR 2004-07-22 00:00:00 Completed [facility] Polio (IPV/OPV) 2004-07-22 00:00:00 Completed [facility] Varicella (varivax)(chicken pox) 2004-07-22 00:00:00 Completed [facility] DTaP, Unspecified Formulation 2004-07-22 00:00:00 Completed [facility] IPV 2004-07-22 00:00:00 Completed [facility] DTAP 2004-07-22 00:00:00 Completed [facility] Hep B, Adol or Pedi Dosage 2004-07-22 00:00:00 Completed [facility] MMR 2004-07-22 00:00:00 Completed [facility] Polio (IPV/OPV) 2004-07-22 00:00:00 Completed [facility] Varicella (varivax)(chicken pox) 2004-07-22 00:00:00 Completed [facility] DTaP, Unspecified Formulation 2004-07-22 00:00:00 Completed [facility] IPV 2004-07-22 00:00:00 Completed [facility] DTAP 2004-07-22 00:00:00 Completed [facility] Hep B, Adol or Pedi Dosage 2004-07-22 00:00:00 Completed [facility] MMR 2004-07-22 00:00:00 Completed [facility] Polio (IPV/OPV) 2004-07-22 00:00:00 Completed [facility] Varicella (varivax)(chicken pox) 2004-07-22 00:00:00 Completed [facility] DTaP, Unspecified Formulation 2004-07-22 00:00:00 Completed [facility] IPV 2004-07-22 00:00:00 Completed [facility] DTAP 2004-07-22 00:00:00 Completed [facility] Hep B, Adol or Pedi Dosage 2004-07-22 00:00:00 Completed [facility] MMR 2004-07-22 00:00:00 Completed [facility] Polio (IPV/OPV) 2004-07-22 00:00:00 Completed [facility] Varicella (varivax)(chicken pox) 2004-07-22 00:00:00 Completed [facility] DTaP, Unspecified Formulation 2004-07-22 00:00:00 Completed [facility] IPV 2004-07-22 00:00:00 Completed [facility] DTAP 2004-07-22 00:00:00 Completed [facility] Hep B, Adol or Pedi Dosage 2004-07-22 00:00:00 Completed [facility] MMR 2004-07-22 00:00:00 Completed [facility] Polio (IPV/OPV) 2004-07-22 00:00:00 Completed [facility] Varicella (varivax)(chicken pox) 2004-07-22 00:00:00 Completed [facility] DTaP, Unspecified Formulation 2004-07-22 00:00:00 Completed [facility] IPV 2004-07-22 00:00:00 Completed [facility] DTAP 2004-07-22 00:00:00 Completed [facility] Hep B, Adol or Pedi Dosage 2004-07-22 00:00:00 Completed [facility] MMR 2004-07-22 00:00:00 Completed [facility] Polio (IPV/OPV) 2004-07-22 00:00:00 Completed [facility] Varicella (varivax)(chicken pox) 2004-07-22 00:00:00 Completed [facility] DTaP, Unspecified Formulation 2004-07-22 00:00:00 Completed [facility] IPV 2004-07-22 00:00:00 Completed [facility] DTAP 2004-07-22 00:00:00 Completed [facility] Hep B, Adol or Pedi Dosage 2004-07-22 00:00:00 Completed [facility] MMR 2004-07-22 00:00:00 Completed [facility] Polio (IPV/OPV) 2004-07-22 00:00:00 Completed [facility] Varicella (varivax)(chicken pox) 2004-07-22 00:00:00 Completed [facility] DTaP, Unspecified Formulation 2004-07-22 00:00:00 Completed [facility] IPV 2004-07-22 00:00:00 Completed [facility] DTAP 2004-07-22 00:00:00 Completed [facility] Hep B, Adol or Pedi Dosage 2004-07-22 00:00:00 Completed [facility] MMR 2004-07-22 00:00:00 Completed [facility] Polio (IPV/OPV) 2004-07-22 00:00:00 Completed [facility] Varicella (varivax)(chicken pox) 2004-07-22 00:00:00 Completed [facility] DTaP, Unspecified Formulation 2004-07-22 00:00:00 Completed [facility] IPV 2004-07-22 00:00:00 Completed [facility] DTAP 2003-06-04 00:00:00 Completed [facility] HIB 3 Dose Schedule 2003-06-04 00:00:00 Completed [facility] Hep B, Adol or Pedi Dosage 2003-06-04 00:00:00 Completed [facility] MMR 2003-06-04 00:00:00 Completed [facility] Polio (IPV/OPV) 2003-06-04 00:00:00 Completed [facility] Varicella (varivax)(chicken pox) 2003-06-04 00:00:00 Completed [facility] DTAP 2003-06-04 00:00:00 Completed [facility] HIB 3 Dose Schedule 2003-06-04 00:00:00 Completed [facility] Hep B, Adol or Pedi Dosage 2003-06-04 00:00:00 Completed [facility] MMR 2003-06-04 00:00:00 Completed [facility] Polio (IPV/OPV) 2003-06-04 00:00:00 Completed [facility] Varicella (varivax)(chicken pox) 2003-06-04 00:00:00 Completed [facility] DTAP 2003-06-04 00:00:00 Completed [facility] HIB 3 Dose Schedule 2003-06-04 00:00:00 Completed [facility] Hep B, Adol or Pedi Dosage 2003-06-04 00:00:00 Completed [facility] MMR 2003-06-04 00:00:00 Completed [facility] Polio (IPV/OPV) 2003-06-04 00:00:00 Completed [facility] Varicella (varivax)(chicken pox) 2003-06-04 00:00:00 Completed [facility] DTAP 2003-06-04 00:00:00 Completed [facility] HIB 3 Dose Schedule 2003-06-04 00:00:00 Completed [facility] Hep B, Adol or Pedi Dosage 2003-06-04 00:00:00 Completed [facility] MMR 2003-06-04 00:00:00 Completed [facility] Polio (IPV/OPV) 2003-06-04 00:00:00 Completed [facility] Varicella (varivax)(chicken pox) 2003-06-04 00:00:00 Completed [facility] DTAP 2003-06-04 00:00:00 Completed [facility] HIB 3 Dose Schedule 2003-06-04 00:00:00 Completed [facility] Hep B, Adol or Pedi Dosage 2003-06-04 00:00:00 Completed [facility] MMR 2003-06-04 00:00:00 Completed [facility] Polio (IPV/OPV) 2003-06-04 00:00:00 Completed [facility] Varicella (varivax)(chicken pox) 2003-06-04 00:00:00 Completed [facility] DTAP 2003-06-04 00:00:00 Completed [facility] HIB 3 Dose Schedule 2003-06-04 00:00:00 Completed [facility] Hep B, Adol or Pedi Dosage 2003-06-04 00:00:00 Completed [facility] MMR 2003-06-04 00:00:00 Completed [facility] Polio (IPV/OPV) 2003-06-04 00:00:00 Completed [facility] Varicella (varivax)(chicken pox) 2003-06-04 00:00:00 Completed [facility] DTAP 2003-06-04 00:00:00 Completed [facility] HIB 3 Dose Schedule 2003-06-04 00:00:00 Completed [facility] Hep B, Adol or Pedi Dosage 2003-06-04 00:00:00 Completed [facility] MMR 2003-06-04 00:00:00 Completed [facility] Polio (IPV/OPV) 2003-06-04 00:00:00 Completed [facility] Varicella (varivax)(chicken pox) 2003-06-04 00:00:00 Completed [facility] DTAP 2003-06-04 00:00:00 Completed [facility] HIB 3 Dose Schedule 2003-06-04 00:00:00 Completed [facility] Hep B, Adol or Pedi Dosage 2003-06-04 00:00:00 Completed [facility] MMR 2003-06-04 00:00:00 Completed [facility] Polio (IPV/OPV) 2003-06-04 00:00:00 Completed [facility] Varicella (varivax)(chicken pox) 2003-06-04 00:00:00 Completed [facility] DTAP 2003-06-04 00:00:00 Completed [facility] HIB 3 Dose Schedule 2003-06-04 00:00:00 Completed [facility] Hep B, Adol or Pedi Dosage 2003-06-04 00:00:00 Completed [facility] MMR 2003-06-04 00:00:00 Completed [facility] Polio (IPV/OPV) 2003-06-04 00:00:00 Completed [facility] Varicella (varivax)(chicken pox) 2003-06-04 00:00:00 Completed [facility] DTAP 2003-06-04 00:00:00 Completed [facility] HIB 3 Dose Schedule 2003-06-04 00:00:00 Completed [facility] Hep B, Adol or Pedi Dosage 2003-06-04 00:00:00 Completed [facility] MMR 2003-06-04 00:00:00 Completed [facility] Polio (IPV/OPV) 2003-06-04 00:00:00 Completed [facility] Varicella (varivax)(chicken pox) 2003-06-04 00:00:00 Completed [facility] DTAP 2003-06-04 00:00:00 Completed [facility] HIB 3 Dose Schedule 2003-06-04 00:00:00 Completed [facility] Hep B, Adol or Pedi Dosage 2003-06-04 00:00:00 Completed [facility] MMR 2003-06-04 00:00:00 Completed [facility] Polio (IPV/OPV) 2003-06-04 00:00:00 Completed [facility] Varicella (varivax)(chicken pox) 2003-06-04 00:00:00 Completed [facility] DTAP 2003-06-04 00:00:00 Completed [facility] HIB 3 Dose Schedule 2003-06-04 00:00:00 [facility]pleted [facility] [facility] Adol or Pedi Dosage 2003-06-04 00:00:00 Completed [facility] MMR 2003-06-04 00:00:00 Completed [facility] Polio (IPV/OPV) 2003-06-04 00:00:00 Completed [facility] Varicella (varivax)(chicken pox) 2003-06-04 00:00:00 Completed [facility] DTAP 2003-06-04 00:00:00 Completed [facility] HIB 3 Dose Schedule 2003-06-04 00:00:00 Completed [facility] Hep B, Adol or Pedi Dosage 2003-06-04 00:00:00 Completed [facility] MMR 2003-06-04 00:00:00 Completed [facility] Polio (IPV/OPV) 2003-06-04 00:00:00 Completed [facility] Varicella (varivax)(chicken pox) 2003-06-04 00:00:00 Completed [facility] DTAP 2003-06-04 00:00:00 Completed [facility] HIB 3 Dose Schedule 2003-06-04 00:00:00 Completed [facility] Hep B, Adol or Pedi Dosage 2003-06-04 00:00:00 Completed [facility] MMR 2003-06-04 00:00:00 Completed [facility] Polio (IPV/OPV) 2003-06-04 00:00:00 Completed [facility] Varicella (varivax)(chicken pox) 2003-06-04 00:00:00 Completed [facility] DTAP 2003-06-04 00:00:00 Completed [facility] HIB 3 Dose Schedule 2003-06-04 00:00:00 Completed [facility] Hep B, Adol or Pedi Dosage 2003-06-04 00:00:00 Completed [facility] MMR 2003-06-04 00:00:00 Completed [facility] Polio (IPV/OPV) 2003-06-04 00:00:00 Completed [facility] Varicella (varivax)(chicken pox) 2003-06-04 00:00:00 Completed [facility] DTAP 2003-06-04 00:00:00 Completed [facility] HIB 3 Dose Schedule 2003-06-04 00:00:00 Completed [facility] Hep B, Adol or Pedi Dosage 2003-06-04 00:00:00 Completed [facility] MMR 2003-06-04 00:00:00 Completed [facility] Polio (IPV/OPV) 2003-06-04 00:00:00 Completed [facility] Varicella (varivax)(chicken pox) 2003-06-04 00:00:00 Completed [facility] DTAP 2003-06-04 00:00:00 Completed [facility] HIB 3 Dose Schedule 2003-06-04 00:00:00 Completed [facility] Hep B, Adol or Pedi Dosage 2003-06-04 00:00:00 Completed [facility] MMR 2003-06-04 00:00:00 Completed [facility] Polio (IPV/OPV) 2003-06-04 00:00:00 Completed [facility] Varicella (varivax)(chicken pox) 2003-06-04 00:00:00 Completed [facility] DTAP 2003-06-04 00:00:00 Completed [facility] HIB 3 Dose Schedule 2003-06-04 00:00:00 Completed [facility] Hep B, Adol or Pedi Dosage 2003-06-04 00:00:00 Completed [facility] MMR 2003-06-04 00:00:00 Completed [facility] Polio (IPV/OPV) 2003-06-04 00:00:00 Completed [facility] Varicella (varivax)(chicken pox) 2003-06-04 00:00:00 Completed [facility] DTAP 2003-06-04 00:00:00 Completed [facility] HIB 3 Dose Schedule 2003-06-04 00:00:00 Completed [facility] Hep B, Adol or Pedi Dosage 2003-06-04 00:00:00 Completed [facility] MMR 2003-06-04 00:00:00 Completed [facility] Polio (IPV/OPV) 2003-06-04 00:00:00 Completed [facility] Varicella (varivax)(chicken pox) 2003-06-04 00:00:00 Completed [facility] DTAP 2003-06-04 00:00:00 Completed [facility] HIB 3 Dose Schedule 2003-06-04 00:00:00 Completed [facility] Hep B, Adol or Pedi Dosage 2003-06-04 00:00:00 Completed [facility] MMR 2003-06-04 00:00:00 Completed [facility] Polio (IPV/OPV) 2003-06-04 00:00:00 Completed [facility] Varicella (varivax)(chicken pox) 2003-06-04 00:00:00 Completed [facility] DTAP 2003-06-04 00:00:00 Completed [facility] HIB 3 Dose Schedule 2003-06-04 00:00:00 Completed [facility] Hep B, Adol or Pedi Dosage 2003-06-04 00:00:00 Completed [facility] MMR 2003-06-04 00:00:00 Completed [facility] Polio (IPV/OPV) 2003-06-04 00:00:00 Completed [facility] Varicella (varivax)(chicken pox) 2003-06-04 00:00:00 Completed [facility] DTAP 2003-06-04 00:00:00 Completed [facility] HIB 3 Dose Schedule 2003-06-04 00:00:00 Completed [facility] Hep B, Adol or Pedi Dosage 2003-06-04 00:00:00 Completed [facility] MMR 2003-06-04 00:00:00 Completed [facility] Polio (IPV/OPV) 2003-06-04 00:00:00 Completed [facility] Varicella (varivax)(chicken pox) 2003-06-04 00:00:00 Completed [facility] DTAP 2003-06-04 00:00:00 Completed [facility] HIB 3 Dose Schedule 2003-06-04 00:00:00 Completed [facility] Hep B, Adol or Pedi Dosage 2003-06-04 00:00:00 Completed [facility] MMR 2003-06-04 00:00:00 Completed [facility] Polio (IPV/OPV) 2003-06-04 00:00:00 Completed [facility] Varicella (varivax)(chicken pox) 2003-06-04 00:00:00 Completed [facility] DTAP 2003-06-04 00:00:00 Completed [facility] HIB 3 Dose Schedule 2003-06-04 00:00:00 Completed [facility] Hep B, Adol or Pedi Dosage 2003-06-04 00:00:00 Completed [facility] MMR 2003-06-04 00:00:00 Completed [facility] Polio (IPV/OPV) 2003-06-04 00:00:00 Completed [facility] Varicella (varivax)(chicken pox) 2003-06-04 00:00:00 Completed [facility] DTAP 2003-06-04 00:00:00 Completed [facility] HIB 3 Dose Schedule 2003-06-04 00:00:00 Completed [facility] Hep B, Adol or Pedi Dosage 2003-06-04 00:00:00 Completed [facility] MMR 2003-06-04 00:00:00 Completed [facility] Polio (IPV/OPV) 2003-06-04 00:00:00 Completed [facility] Varicella (varivax)(chicken pox) 2003-06-04 00:00:00 Completed [facility] DTAP 2003-06-04 00:00:00 Completed [facility] HIB 3 Dose Schedule 2003-06-04 00:00:00 Completed [facility] Hep B, Adol or Pedi Dosage 2003-06-04 00:00:00 Completed [facility] MMR 2003-06-04 00:00:00 Completed [facility] Polio (IPV/OPV) 2003-06-04 00:00:00 Completed [facility] Varicella (varivax)(chicken pox) 2003-06-04 00:00:00 Completed [facility] DTAP 2003-06-04 00:00:00 Completed [facility] HIB 3 Dose Schedule 2003-06-04 00:00:00 Completed [facility] Hep B, Adol or Pedi Dosage 2003-06-04 00:00:00 Completed [facility] MMR 2003-06-04 00:00:00 Completed [facility] Polio (IPV/OPV) 2003-06-04 00:00:00 Completed [facility] Varicella (varivax)(chicken pox) 2003-06-04 00:00:00 Completed [facility] DTAP 2003-06-04 00:00:00 Completed [facility] HIB 3 Dose Schedule 2003-06-04 00:00:00 Completed [facility] Hep B, Adol or Pedi Dosage 2003-06-04 00:00:00 Completed [facility] MMR 2003-06-04 00:00:00 Completed [facility] Polio (IPV/OPV) 2003-06-04 00:00:00 Completed [facility] Varicella (varivax)(chicken pox) 2003-06-04 00:00:00 Completed [facility] DTAP 2003-06-04 00:00:00 Completed [facility] HIB 3 Dose Schedule 2003-06-04 00:00:00 Completed [facility] Hep B, Adol or Pedi Dosage 2003-06-04 00:00:00 Completed [facility] MMR 2003-06-04 00:00:00 Completed [facility] Polio (IPV/OPV) 2003-06-04 00:00:00 Completed [facility] Varicella (varivax)(chicken pox) 2003-06-04 00:00:00 Completed [facility] DTAP 2003-06-04 00:00:00 Completed [facility] HIB 3 Dose Schedule 2003-06-04 00:00:00 Completed [facility] Hep B, Adol or Pedi Dosage 2003-06-04 00:00:00 Completed [facility] MMR 2003-06-04 00:00:00 Completed [facility] Polio (IPV/OPV) 2003-06-04 00:00:00 Completed [facility] Varicella (varivax)(chicken pox) 2003-06-04 00:00:00 Completed [facility] DTAP 2003-06-04 00:00:00 Completed [facility] HIB 3 Dose Schedule 2003-06-04 00:00:00 Completed [facility] Hep B, Adol or Pedi Dosage 2003-06-04 00:00:00 Completed [facility] MMR 2003-06-04 00:00:00 Completed [facility] Polio (IPV/OPV) 2003-06-04 00:00:00 Completed [facility] Varicella (varivax)(chicken pox) 2003-06-04 00:00:00 Completed [facility] DTAP 2003-06-04 00:00:00 Completed [facility] HIB 3 Dose Schedule 2003-06-04 00:00:00 Completed [facility] Hep B, Adol or Pedi Dosage 2003-06-04 00:00:00 Completed [facility] MMR 2003-06-04 00:00:00 Completed [facility] Polio (IPV/OPV) 2003-06-04 00:00:00 Completed [facility] Varicella (varivax)(chicken pox) 2003-06-04 00:00:00 Completed [facility] DTAP 2003-06-04 00:00:00 Completed [facility] HIB 3 Dose Schedule 2003-06-04 00:00:00 Completed [facility] Hep B, Adol or Pedi Dosage 2003-06-04 00:00:00 Completed [facility] MMR 2003-06-04 00:00:00 Completed [facility] Polio (IPV/OPV) 2003-06-04 00:00:00 Completed [facility] Varicella (varivax)(chicken pox) 2003-06-04 00:00:00 Completed [facility] DTAP 2003-06-04 00:00:00 Completed [facility] HIB 3 Dose Schedule 2003-06-04 00:00:00 Completed [facility] Hep B, Adol or Pedi Dosage 2003-06-04 00:00:00 Completed [facility] MMR 2003-06-04 00:00:00 Completed [facility] Polio (IPV/OPV) 2003-06-04 00:00:00 Completed [facility] Varicella (varivax)(chicken pox) 2003-06-04 00:00:00 Completed [facility] DTAP 2003-06-04 00:00:00 Completed [facility] HIB 3 Dose Schedule 2003-06-04 00:00:00 Completed [facility] Hep B, Adol or Pedi Dosage 2003-06-04 00:00:00 Completed [facility] MMR 2003-06-04 00:00:00 Completed [facility] Polio (IPV/OPV) 2003-06-04 00:00:00 Completed [facility] Varicella (varivax)(chicken pox) 2003-06-04 00:00:00 Completed [facility] DTAP 2003-06-04 00:00:00 Completed [facility] HIB 3 Dose Schedule 2003-06-04 00:00:00 Completed [facility] Hep B, Adol or Pedi Dosage 2003-06-04 00:00:00 Completed [facility] MMR 2003-06-04 00:00:00 Completed [facility] Polio (IPV/OPV) 2003-06-04 00:00:00 Completed [facility] Varicella (varivax)(chicken pox) 2003-06-04 00:00:00 Completed [facility] DTAP 2003-06-04 00:00:00 Completed [facility] HIB 3 Dose Schedule 2003-06-04 00:00:00 Completed [facility] Hep B, Adol or Pedi Dosage 2003-06-04 00:00:00 Completed [facility] MMR 2003-06-04 00:00:00 Completed [facility] Polio (IPV/OPV) 2003-06-04 00:00:00 Completed [facility] Varicella (varivax)(chicken pox) 2003-06-04 00:00:00 Completed [facility] DTAP 2003-06-04 00:00:00 Completed [facility] HIB 3 Dose Schedule 2003-06-04 00:00:00 Completed [facility] Hep B, Adol or Pedi Dosage 2003-06-04 00:00:00 Completed [facility] MMR 2003-06-04 00:00:00 Completed [facility] Polio (IPV/OPV) 2003-06-04 00:00:00 Completed [facility] Varicella (varivax)(chicken pox) 2003-06-04 00:00:00 Completed [facility] DTaP, Unspecified Formulation 2003-06-04 00:00:00 Completed [facility] HIB 4 Dose Schedule 2003-06-04 00:00:00 Completed [facility] IPV 2003-06-04 00:00:00 Completed [facility] DTAP 2003-06-04 00:00:00 Completed [facility] HIB 3 Dose Schedule 2003-06-04 00:00:00 Completed [facility] Hep B, Adol or Pedi Dosage 2003-06-04 00:00:00 Completed [facility] MMR 2003-06-04 00:00:00 Completed [facility] Polio (IPV/OPV) 2003-06-04 00:00:00 Completed [facility] Varicella (varivax)(chicken pox) 2003-06-04 00:00:00 Completed [facility] DTaP, Unspecified Formulation 2003-06-04 00:00:00 Completed [facility] HIB 4 Dose Schedule 2003-06-04 00:00:00 Completed [facility] IPV 2003-06-04 00:00:00 Completed [facility] DTAP 2003-06-04 00:00:00 Completed [facility] HIB 3 Dose Schedule 2003-06-04 00:00:00 Completed [facility] Hep B, Adol or Pedi Dosage 2003-06-04 00:00:00 Completed [facility] MMR 2003-06-04 00:00:00 Completed [facility] Polio (IPV/OPV) 2003-06-04 00:00:00 Completed [facility] Varicella (varivax)(chicken pox) 2003-06-04 00:00:00 Completed [facility] DTaP, Unspecified Formulation 2003-06-04 00:00:00 Completed [facility] HIB 4 Dose Schedule 2003-06-04 00:00:00 Completed [facility] IPV 2003-06-04 00:00:00 Completed [facility] DTAP 2003-06-04 00:00:00 Completed [facility] HIB 3 Dose Schedule 2003-06-04 00:00:00 Completed [facility] Hep B, Adol or Pedi Dosage 2003-06-04 00:00:00 Completed [facility] MMR 2003-06-04 00:00:00 Completed [facility] Polio (IPV/OPV) 2003-06-04 00:00:00 Completed [facility] Varicella (varivax)(chicken pox) 2003-06-04 00:00:00 Completed [facility] DTaP, Unspecified Formulation 2003-06-04 00:00:00 Completed [facility] HIB 4 Dose Schedule 2003-06-04 00:00:00 Completed [facility] IPV 2003-06-04 00:00:00 Completed [facility] DTAP 2003-06-04 00:00:00 Completed [facility] HIB 3 Dose Schedule 2003-06-04 00:00:00 Completed [facility] Hep B, Adol or Pedi Dosage 2003-06-04 00:00:00 Completed [facility] MMR 2003-06-04 00:00:00 Completed [facility] Polio (IPV/OPV) 2003-06-04 00:00:00 Completed [facility] Varicella (varivax)(chicken pox) 2003-06-04 00:00:00 Completed [facility] DTaP, Unspecified Formulation 2003-06-04 00:00:00 Completed [facility] HIB 4 Dose Schedule 2003-06-04 00:00:00 Completed [facility] IPV 2003-06-04 00:00:00 Completed [facility] DTAP 2003-06-04 00:00:00 Completed [facility] HIB 3 Dose Schedule 2003-06-04 00:00:00 Completed [facility] Hep B, Adol or Pedi Dosage 2003-06-04 00:00:00 Completed [facility] MMR 2003-06-04 00:00:00 Completed [facility] Polio (IPV/OPV) 2003-06-04 00:00:00 Completed [facility] Varicella (varivax)(chicken pox) 2003-06-04 00:00:00 Completed [facility] DTaP, Unspecified Formulation 2003-06-04 00:00:00 Completed [facility] HIB 4 Dose Schedule 2003-06-04 00:00:00 Completed [facility] IPV 2003-06-04 00:00:00 Completed [facility] DTAP 2003-06-04 00:00:00 Completed [facility] HIB 3 Dose Schedule 2003-06-04 00:00:00 Completed [facility] Hep B, Adol or Pedi Dosage 2003-06-04 00:00:00 Completed [facility] MMR 2003-06-04 00:00:00 Completed [facility] Polio (IPV/OPV) 2003-06-04 00:00:00 Completed [facility] Varicella (varivax)(chicken pox) 2003-06-04 00:00:00 Completed [facility] DTaP, Unspecified Formulation 2003-06-04 00:00:00 Completed [facility] HIB 4 Dose Schedule 2003-06-04 00:00:00 Completed [facility] IPV 2003-06-04 00:00:00 Completed [facility] DTAP 2003-06-04 00:00:00 Completed [facility] HIB 3 Dose Schedule 2003-06-04 00:00:00 Completed [facility] Hep B, Adol or Pedi Dosage 2003-06-04 00:00:00 Completed [facility] MMR 2003-06-04 00:00:00 Completed [facility] Polio (IPV/OPV) 2003-06-04 00:00:00 Completed [facility] Varicella (varivax)(chicken pox) 2003-06-04 00:00:00 Completed [facility] DTaP, Unspecified Formulation 2003-06-04 00:00:00 Completed [facility] HIB 4 Dose Schedule 2003-06-04 00:00:00 Completed [facility] IPV 2003-06-04 00:00:00 Completed [facility] DTAP 2003-06-04 00:00:00 Completed [facility] HIB 3 Dose Schedule 2003-06-04 00:00:00 Completed [facility] Hep B, Adol or Pedi Dosage 2003-06-04 00:00:00 Completed [facility] MMR 2003-06-04 00:00:00 Completed [facility] Polio (IPV/OPV) 2003-06-04 00:00:00 Completed [facility] Varicella (varivax)(chicken pox) 2003-06-04 00:00:00 Completed [facility] DTaP, Unspecified Formulation 2003-06-04 00:00:00 Completed [facility] HIB 4 Dose Schedule 2003-06-04 00:00:00 Completed [facility] IPV 2003-06-04 00:00:00 Completed [facility] DTAP 2003-06-04 00:00:00 Completed [facility] HIB 3 Dose Schedule 2003-06-04 00:00:00 Completed [facility] Hep B, Adol or Pedi Dosage 2003-06-04 00:00:00 Completed [facility] MMR 2003-06-04 00:00:00 Completed [facility] Polio (IPV/OPV) 2003-06-04 00:00:00 Completed [facility] Varicella (varivax)(chicken pox) 2003-06-04 00:00:00 Completed [facility] DTaP, Unspecified Formulation 2003-06-04 00:00:00 Completed [facility] HIB 4 Dose Schedule 2003-06-04 00:00:00 Completed [facility] IPV 2003-06-04 00:00:00 Completed [facility] DTAP 2003-06-04 00:00:00 Completed [facility] HIB 3 Dose Schedule 2003-06-04 00:00:00 Completed [facility] Hep B, Adol or Pedi Dosage 2003-06-04 00:00:00 Completed [facility] MMR 2003-06-04 00:00:00 Completed [facility] Polio (IPV/OPV) 2003-06-04 00:00:00 Completed [facility] Varicella (varivax)(chicken pox) 2003-06-04 00:00:00 Completed [facility] DTaP, Unspecified Formulation 2003-06-04 00:00:00 Completed [facility] HIB 4 Dose Schedule 2003-06-04 00:00:00 Completed [facility] IPV 2003-06-04 00:00:00 Completed [facility] DTAP 2003-06-04 00:00:00 Completed [facility] HIB 3 Dose Schedule 2003-06-04 00:00:00 Completed [facility] Hep B, Adol or Pedi Dosage 2003-06-04 00:00:00 Completed [facility] MMR 2003-06-04 00:00:00 Completed [facility] Polio (IPV/OPV) 2003-06-04 00:00:00 Completed [facility] Varicella (varivax)(chicken pox) 2003-06-04 00:00:00 Completed [facility] DTaP, Unspecified Formulation 2003-06-04 00:00:00 Completed [facility] HIB 4 Dose Schedule 2003-06-04 00:00:00 Completed [facility] IPV 2003-06-04 00:00:00 Completed [facility] DTAP 2003-06-04 00:00:00 Completed [facility] HIB 3 Dose Schedule 2003-06-04 00:00:00 Completed [facility] Hep B, Adol or Pedi Dosage 2003-06-04 00:00:00 Completed [facility] MMR 2003-06-04 00:00:00 Completed [facility] Polio (IPV/OPV) 2003-06-04 00:00:00 Completed [facility] Varicella (varivax)(chicken pox) 2003-06-04 00:00:00 Completed [facility] DTaP, Unspecified Formulation 2003-06-04 00:00:00 Completed [facility] HIB 4 Dose Schedule 2003-06-04 00:00:00 Completed [facility] IPV 2003-06-04 00:00:00 Completed [facility] DTAP 2003-06-04 00:00:00 Completed [facility] HIB 3 Dose Schedule 2003-06-04 00:00:00 Completed [facility] Hep B, Adol or Pedi Dosage 2003-06-04 00:00:00 Completed [facility] MMR 2003-06-04 00:00:00 Completed [facility] Polio (IPV/OPV) 2003-06-04 00:00:00 Completed [facility] Varicella (varivax)(chicken pox) 2003-06-04 00:00:00 Completed [facility] DTaP, Unspecified Formulation 2003-06-04 00:00:00 Completed [facility] HIB 4 Dose Schedule 2003-06-04 00:00:00 Completed [facility] IPV 2003-06-04 00:00:00 Completed [facility] DTAP 2003-06-04 00:00:00 Completed [facility] HIB 3 Dose Schedule 2003-06-04 00:00:00 Completed [facility] Hep B, Adol or Pedi Dosage 2003-06-04 00:00:00 Completed [facility] MMR 2003-06-04 00:00:00 Completed [facility] Polio (IPV/OPV) 2003-06-04 00:00:00 Completed [facility] Varicella (varivax)(chicken pox) 2003-06-04 00:00:00 Completed [facility] DTaP, Unspecified Formulation 2003-06-04 00:00:00 Completed [facility] HIB 4 Dose Schedule 2003-06-04 00:00:00 Completed [facility] IPV 2003-06-04 00:00:00 Completed [facility] DTAP 2003-06-04 00:00:00 Completed [facility] HIB 3 Dose Schedule 2003-06-04 00:00:00 Completed [facility] Hep B, Adol or Pedi Dosage 2003-06-04 00:00:00 Completed [facility] MMR 2003-06-04 00:00:00 Completed [facility] Polio (IPV/OPV) 2003-06-04 00:00:00 Completed [facility] Varicella (varivax)(chicken pox) 2003-06-04 00:00:00 Completed [facility] DTaP, Unspecified Formulation 2003-06-04 00:00:00 Completed [facility] HIB 4 Dose Schedule 2003-06-04 00:00:00 Completed [facility] IPV 2003-06-04 00:00:00 Completed [facility] DTAP 2003-06-04 00:00:00 Completed [facility] HIB 3 Dose Schedule 2003-06-04 00:00:00 Completed [facility] Hep B, Adol or Pedi Dosage 2003-06-04 00:00:00 Completed [facility] MMR 2003-06-04 00:00:00 Completed [facility] Polio (IPV/OPV) 2003-06-04 00:00:00 Completed [facility] Varicella (varivax)(chicken pox) 2003-06-04 00:00:00 Completed [facility] DTaP, Unspecified Formulation 2003-06-04 00:00:00 Completed [facility] HIB 4 Dose Schedule 2003-06-04 00:00:00 Completed [facility] IPV 2003-06-04 00:00:00 Completed [facility] DTAP 2003-06-04 00:00:00 Completed [facility] HIB 3 Dose Schedule 2003-06-04 00:00:00 Completed [facility] Hep B, Adol or Pedi Dosage 2003-06-04 00:00:00 Completed [facility] MMR 2003-06-04 00:00:00 Completed [facility] Polio (IPV/OPV) 2003-06-04 00:00:00 Completed [facility] Varicella (varivax)(chicken pox) 2003-06-04 00:00:00 Completed [facility] DTaP, Unspecified Formulation 2003-06-04 00:00:00 Completed [facility] HIB 4 Dose Schedule 2003-06-04 00:00:00 Completed [facility] IPV 2003-06-04 00:00:00 Completed [facility] DTAP 2003-06-04 00:00:00 Completed [facility] HIB 3 Dose Schedule 2003-06-04 00:00:00 Completed [facility] Hep B, Adol or Pedi Dosage 2003-06-04 00:00:00 Completed [facility] MMR 2003-06-04 00:00:00 Completed [facility] Polio (IPV/OPV) 2003-06-04 00:00:00 Completed [facility] Varicella (varivax)(chicken pox) 2003-06-04 00:00:00 Completed [facility] DTaP, Unspecified Formulation 2003-06-04 00:00:00 Completed [facility] HIB 4 Dose Schedule 2003-06-04 00:00:00 Completed [facility] IPV 2003-06-04 00:00:00 Completed [facility] DTAP 2003-06-04 00:00:00 Completed [facility] HIB 3 Dose Schedule 2003-06-04 00:00:00 Completed [facility] Hep B, Adol or Pedi Dosage 2003-06-04 00:00:00 Completed [facility] MMR 2003-06-04 00:00:00 Completed [facility] Polio (IPV/OPV) 2003-06-04 00:00:00 Completed [facility] Varicella (varivax)(chicken pox) 2003-06-04 00:00:00 Completed [facility] DTaP, Unspecified Formulation 2003-06-04 00:00:00 Completed [facility] HIB 4 Dose Schedule 2003-06-04 00:00:00 Completed [facility] IPV 2003-06-04 00:00:00 Completed [facility] DTAP 2003-06-04 00:00:00 Completed [facility] HIB 3 Dose Schedule 2003-06-04 00:00:00 Completed [facility] Hep B, Adol or Pedi Dosage 2003-06-04 00:00:00 Completed [facility] MMR 2003-06-04 00:00:00 Completed [facility] Polio (IPV/OPV) 2003-06-04 00:00:00 Completed [facility] Varicella (varivax)(chicken pox) 2003-06-04 00:00:00 Completed [facility] DTaP, Unspecified Formulation 2003-06-04 00:00:00 Completed [facility] HIB 4 Dose Schedule 2003-06-04 00:00:00 Completed [facility] IPV 2003-06-04 00:00:00 Completed [facility] DTAP 2003-06-04 00:00:00 Completed [facility] HIB 3 Dose Schedule 2003-06-04 00:00:00 Completed [facility] Hep B, Adol or Pedi Dosage 2003-06-04 00:00:00 Completed [facility] MMR 2003-06-04 00:00:00 Completed [facility] Polio (IPV/OPV) 2003-06-04 00:00:00 Completed [facility] Varicella (varivax)(chicken pox) 2003-06-04 00:00:00 Completed [facility] DTaP, Unspecified Formulation 2003-06-04 00:00:00 Completed [facility] HIB 4 Dose Schedule 2003-06-04 00:00:00 Completed [facility] IPV 2003-06-04 00:00:00 Completed [facility] DTAP 2003-06-04 00:00:00 Completed [facility] HIB 3 Dose Schedule 2003-06-04 00:00:00 Completed [facility] Hep B, Adol or Pedi Dosage 2003-06-04 00:00:00 Completed [facility] MMR 2003-06-04 00:00:00 Completed [facility] Polio (IPV/OPV) 2003-06-04 00:00:00 Completed [facility] Varicella (varivax)(chicken pox) 2003-06-04 00:00:00 Completed [facility] DTaP, Unspecified Formulation 2003-06-04 00:00:00 Completed [facility] HIB 4 Dose Schedule 2003-06-04 00:00:00 Completed [facility] IPV 2003-06-04 00:00:00 Completed [facility] DTAP 2003-06-04 00:00:00 Completed [facility] HIB 3 Dose Schedule 2003-06-04 00:00:00 Completed [facility] Hep B, Adol or Pedi Dosage 2003-06-04 00:00:00 Completed [facility] MMR 2003-06-04 00:00:00 Completed [facility] Polio (IPV/OPV) 2003-06-04 00:00:00 Completed [facility] Varicella (varivax)(chicken pox) 2003-06-04 00:00:00 Completed [facility] DTaP, Unspecified Formulation 2003-06-04 00:00:00 Completed [facility] HIB 4 Dose Schedule 2003-06-04 00:00:00 Completed [facility] IPV 2003-06-04 00:00:00 Completed [facility] DTAP 2003-06-04 00:00:00 Completed [facility] HIB 3 Dose Schedule 2003-06-04 00:00:00 Completed [facility] Hep B, Adol or Pedi Dosage 2003-06-04 00:00:00 Completed [facility] MMR 2003-06-04 00:00:00 Completed [facility] Polio (IPV/OPV) 2003-06-04 00:00:00 Completed [facility] Varicella (varivax)(chicken pox) 2003-06-04 00:00:00 Completed [facility] DTaP, Unspecified Formulation 2003-06-04 00:00:00 Completed [facility] HIB 4 Dose Schedule 2003-06-04 00:00:00 Completed [facility] IPV 2003-06-04 00:00:00 Completed [facility] DTAP 2003-06-04 00:00:00 Completed [facility] HIB 3 Dose Schedule 2003-06-04 00:00:00 Completed [facility] Hep B, Adol or Pedi Dosage 2003-06-04 00:00:00 Completed [facility] MMR 2003-06-04 00:00:00 Completed [facility] Polio (IPV/OPV) 2003-06-04 00:00:00 Completed [facility] Varicella (varivax)(chicken pox) 2003-06-04 00:00:00 Completed [facility] DTaP, Unspecified Formulation 2003-06-04 00:00:00 Completed [facility] HIB 4 Dose Schedule 2003-06-04 00:00:00 Completed [facility] IPV 2003-06-04 00:00:00 Completed [facility] DTAP Unknown Completed [facility] DTAP Unknown Completed [facility] DTAP Unknown Completed [facility] DTAP Unknown Completed [facility] HIB 3 Dose Schedule Unknown Completed [facility] HIB 3 Dose Schedule Unknown Completed [facility] Hepatitis A Adult Unknown [facility] Com[facility] Hep B, Adol or Pedi Dosage Unknown Completed [facility] Hep B, Adol or Pedi Dosage Unknown Completed [facility] Hep B, Adol or Pedi Dosage Unknown Completed [facility] Meningococcal Vaccine Unknown Completed [facility] MMR Unknown Completed [facility] MMR Unknown Completed [facility] Pneumococcal 13 Conjugate, PCV13 (Prevnar 13) Unknown Completed [facility] Polio (IPV/OPV) Unknown [facility]) [facility]) [facility] Completed [facility] Polio (IPV/OPV) Unknown Completed [facility] TDAP Unknown Completed [facility] Varicella (varivax)(chicken pox) Unknown Completed [facility] Varicella (varivax)(chicken pox) Unknown Completed [facility] Meningococcal B, OMV Unknown Completed [facility] Influenza Virus Vaccine Quad .5 mL IM 6+ MO (FLUZONE/FLULAVAL/FL UARIX) Unknown Completed [facility] TDAP Unknown Completed [facility] DTaP, Unspecified Formulation Unknown Completed [facility] DTaP, Unspecified Formulation Unknown Completed [facility] DTaP, Unspecified Formulation Unknown Completed [facility] DTaP, Unspecified Formulation Unknown Completed [facility] HEPA,NOS Unknown Completed [facility] HEPATITIS A Unknown Completed [facility] HIB 4 Dose Schedule Unknown Completed [facility] HIB 4 Dose Schedule Unknown Completed [facility] Meningococcal Polysaccharide (groups A, C, Y and W-135) conjugate vaccine (MCV4P) Unknown Completed [facility] Pneumococcal 7 Conjugate, PCV7 (Prevnar7) Unknown Completed [facility] IPV Unknown Completed [facility] IPV Unknown Completed [facility] IPV Unknown Completed [facility] IPV Unknown Completed [facility] TDAP Unknown Completed [facility] DTAP Unknown Completed [facility] DTAP Unknown Completed [facility] DTAP Unknown Completed [facility] DTAP Unknown Completed [facility] HIB 3 Dose Schedule Unknown Completed [facility] HIB 3 Dose Schedule Unknown Completed [facility] Hepatitis A Adult Unknown [facility] Hep B, Adol or Pedi Dosage Unknown Completed [facility] Hep B, Adol or Pedi Dosage Unknown Completed [facility] Hep B, Adol or Pedi Dosage Unknown Completed [facility] Meningococcal Vaccine Unknown Completed [facility] MMR Unknown Completed [facility] MMR Unknown Completed [facility] Pneumococcal 13 Conjugate, PCV13 (Prevnar 13) Unknown Completed [facility] Polio (IPV/OPV) Unknown Completed [facility] Polio (IPV/OPV) Unknown Completed [facility] Polio (IPV/OPV) Unknown Completed [facility] Polio (IPV/OPV) Unknown Completed [facility] TDAP Unknown Completed [facility] Varicella (varivax)(chicken pox) Unknown Completed [facility] Varicella (varivax)(chicken pox) Unknown Completed [facility] Meningococcal B, OMV Unknown Completed [facility] Influenza Virus Vaccine Quad .5 mL IM 6+ MO (FLUZONE/FLULAVAL/FL UARIX) Unknown Completed [facility] TDAP Unknown Completed [facility] DTaP, Unspecified Formulation Unknown Completed [facility] DTaP, Unspecified Formulation Unknown Completed [facility] DTaP, Unspecified Formulation Unknown Completed [facility] DTaP, Unspecified Formulation Unknown Completed [facility] HEPA,NOS Unknown Completed [facility] HEPATITIS A Unknown Completed [facility] HIB 4 Dose Schedule Unknown Completed [facility] HIB 4 Dose Schedule Unknown Completed [facility] Meningococcal Polysaccharide (groups A, C, Y and W-135) conjugate vaccine (MCV4P) Unknown Completed [facility] Pneumococcal 7 Conjugate, PCV7 (Prevnar7) Unknown Completed [facility] IPV Unknown Completed [facility] IPV Unknown Completed [facility] IPV Unknown Completed [facility] IPV Unknown Completed [facility] TDAP Unknown Completed [facility] DTAP Unknown Completed [facility] DTAP Unknown Completed [facility] DTAP Unknown Completed [facility] DTAP Unknown Completed [facility] HIB 3 Dose Schedule Unknown Completed [facility] HIB 3 Dose Schedule Unknown Completed [facility] Hepatitis A Adult Unknown [facility] Completed [facility] Hep B, Adol or Pedi Dosage Unknown Completed [facility] Hep B, Adol or Pedi Dosage Unknown Completed [facility] Hep B, Adol or Pedi Dosage Unknown Completed [facility] Meningococcal Vaccine Unknown Completed [facility] MMR Unknown Completed [facility] MMR Unknown Completed [facility] Pneumococcal 13 Conjugate, PCV13 (Prevnar 13) Unknown Completed [facility] Polio (IPV/OPV) Unknown Completed [facility] Polio (IPV/OPV) Unknown Completed [facility] Polio (IPV/OPV) Unknown Completed [facility] Polio (IPV/OPV) Unknown Completed [facility] TDAP Unknown Completed [facility] Varicella (varivax)(chicken pox) Unknown Completed [facility] Varicella (varivax)(chicken pox) Unknown Completed [facility] Meningococcal B, OMV Unknown Completed [facility] Influenza Virus Vaccine Quad .5 mL IM 6+ MO (FLUZONE/FLULAVAL/FL UARIX) Unknown Completed [facility] TDAP Unknown Completed [facility] DTaP, Unspecified Formulation Unknown Completed [facility] DTaP, Unspecified Formulation Unknown Completed [facility] DTaP, Unspecified Formulation Unknown Completed [facility] DTaP, Unspecified Formulation Unknown Completed [facility] HEPA,NOS Unknown Completed [facility] HEPATITIS A Unknown Completed [facility] HIB 4 Dose Schedule Unknown Completed [facility] HIB 4 Dose Schedule Unknown Completed [facility] Meningococcal Polysaccharide (groups A, C, Y and W-135) conjugate vaccine (MCV4P) Unknown Completed [facility] Pneumococcal 7 Conjugate, PCV7 (Prevnar7) Unknown Completed [facility] IPV Unknown Completed [facility] IPV Unknown Completed [facility] IPV Unknown Completed [facility] IPV Unknown Completed [facility] DTAP Unknown Completed [facility] DTAP Unknown Completed [facility] DTAP Unknown Completed [facility] DTAP Unknown Completed [facility] HIB 3 Dose Schedule Unknown Completed [facility] HIB 3 Dose Schedule Unknown Completed [facility] Hepatitis A Adult Unknown [facility], Adol or Pedi Dosage Unknown Completed [facility] Hep B, Adol or Pedi Dosage Unknown Completed [facility] Hep B, Adol or Pedi Dosage Unknown Completed [facility] Meningococcal Vaccine Unknown Completed [facility] MMR Unknown Completed [facility] MMR Unknown Completed [facility] Pneumococcal 13 Conjugate, PCV13 (Prevnar 13) Unknown Completed [facility] Polio (IPV/OPV) Unknown Completed [facility] Polio (IPV/OPV) Unknown Completed [facility] Polio (IPV/OPV) Unknown Completed [facility] Polio (IPV/OPV) Unknown Completed [facility] TDAP Unknown Completed [facility] Varicella (varivax)(chicken pox) Unknown Completed [facility] Varicella (varivax)(chicken pox) Unknown Completed [facility] Meningococcal B, OMV Unknown Completed [facility] Influenza Virus Vaccine Quad .5 mL IM 6+ MO (FLUZONE/FLULAVAL/FL UARIX) Unknown Completed [facility] TDAP Unknown Completed [facility] DTaP, Unspecified Formulation Unknown Completed [facility] DTaP, Unspecified Formulation Unknown Completed [facility] DTaP, Unspecified Formulation Unknown Completed [facility] DTaP, Unspecified Formulation Unknown Completed [facility] HEPA,NOS Unknown Completed [facility] HEPATITIS A Unknown Completed [facility] HIB 4 Dose Schedule Unknown Completed [facility] HIB 4 Dose Schedule Unknown Completed [facility] Meningococcal Polysaccharide (groups A, C, Y and W-135) conjugate vaccine (MCV4P) Unknown Completed [facility] Pneumococcal 7 Conjugate, PCV7 (Prevnar7) Unknown Completed [facility] IPV Unknown Completed [facility] IPV Unknown Completed [facility] IPV Unknown Completed [facility] IPV Unknown Completed [facility] DTAP Unknown Completed [facility] DTAP Unknown Completed [facility] DTAP Unknown Completed [facility] DTAP Unknown Completed [facility] HIB 3 Dose Schedule Unknown Completed [facility] HIB 3 Dose Schedule Unknown Completed [facility] Hepatitis A Adult Unknown Completed [facility] Hepatitis A Adult Unknown [facility], Adol or Pedi Dosage Unknown Completed [facility] Hep B, Adol or Pedi Dosage Unknown Completed [facility] Hep B, Adol or Pedi Dosage Unknown Completed [facility] Meningococcal Vaccine Unknown Completed [facility] MMR Unknown Completed [facility] MMR Unknown Completed [facility] Pneumococcal 13 Conjugate, PCV13 (Prevnar 13) Unknown Completed [facility] Polio (IPV/OPV) Unknown Completed [facility] Polio (IPV/OPV) Unknown Completed [facility] Polio (IPV/OPV) Unknown Completed [facility] Polio (IPV/OPV) Unknown Completed [facility] TDAP Unknown Completed [facility] Varicella (varivax)(chicken pox) Unknown Completed [facility] Varicella (varivax)(chicken pox) Unknown Completed [facility] Meningococcal B, OMV Unknown Completed [facility] Influenza Virus Vaccine Quad .5 mL IM 6+ MO (FLUZONE/FLULAVAL/FL UARIX) Unknown Completed [facility] TDAP Unknown Completed [facility] DTaP, Unspecified Formulation Unknown Completed [facility] DTaP, Unspecified Formulation Unknown Completed [facility] DTaP, Unspecified Formulation Unknown Completed [facility] DTaP, Unspecified Formulation Unknown Completed [facility] HEPA,NOS Unknown Completed [facility] HEPATITIS A Unknown Completed [facility] HIB 4 Dose Schedule Unknown Completed [facility] HIB 4 Dose Schedule Unknown Completed [facility] Meningococcal Polysaccharide (groups A, C, Y and W-135) conjugate vaccine (MCV4P) Unknown Completed [facility] Pneumococcal 7 Conjugate, PCV7 (Prevnar7) Unknown Completed [facility] IPV Unknown Completed [facility] IPV Unknown Completed [facility] IPV Unknown Completed [facility] IPV Unknown Completed [facility] TDAP Unknown Completed [facility] DTAP Unknown Completed [facility] DTAP Unknown Completed [facility] DTAP Unknown Completed [facility] DTAP Unknown Completed [facility] HIB 3 Dose Schedule Unknown Completed [facility] HIB 3 Dose Schedule Unknown Completed [facility] Hepatitis A Adult Unknown Completed [facility] Hepatitis A Adult Unknown [facility], Adol or Pedi Dosage Unknown Completed [facility] Hep B, Adol or Pedi Dosage Unknown Completed [facility] Hep B, Adol or Pedi Dosage Unknown Completed [facility] Meningococcal Vaccine Unknown Completed [facility] MMR Unknown Completed [facility] MMR Unknown Completed [facility] Pneumococcal 13 Conjugate, PCV13 (Prevnar 13) Unknown Completed [facility] Polio (IPV/OPV) Unknown Completed [facility] Polio (IPV/OPV) Unknown Completed [facility] Polio (IPV/OPV) Unknown Completed [facility] Polio (IPV/OPV) Unknown Completed [facility] TDAP Unknown Completed [facility] Varicella (varivax)(chicken pox) Unknown Completed [facility] Varicella (varivax)(chicken pox) Unknown Completed [facility] Meningococcal B, OMV Unknown Completed [facility] Influenza Virus Vaccine Quad .5 mL IM 6+ MO (FLUZONE/FLULAVAL/FL UARIX) Unknown Completed [facility] TDAP Unknown Completed [facility] DTaP, Unspecified Formulation Unknown Completed [facility] DTaP, Unspecified Formulation Unknown Completed [facility] DTaP, Unspecified Formulation Unknown Completed [facility] DTaP, Unspecified Formulation Unknown Completed [facility] HEPA,NOS Unknown Completed [facility] HEPATITIS A Unknown Completed [facility] HIB 4 Dose Schedule Unknown Completed [facility] HIB 4 Dose Schedule Unknown Completed [facility] Meningococcal Polysaccharide (groups A, C, Y and W-135) conjugate vaccine (MCV4P) Unknown Completed [facility] Pneumococcal 7 Conjugate, PCV7 (Prevnar7) Unknown Completed [facility] IPV Unknown Completed [facility] IPV Unknown Completed [facility] IPV Unknown Completed [facility] IPV Unknown Completed [facility] TDAP Unknown Completed [facility] DTAP Unknown Completed [facility] DTAP Unknown Completed [facility] DTAP Unknown Completed [facility] DTAP Unknown Completed [facility] HIB 3 Dose Schedule Unknown Completed [facility] HIB 3 Dose Schedule Unknown Completed [facility] Hepatitis A Adult Unknown [facility] Hep B, Adol or Pedi Dosage Unknown Completed [facility] Hep B, Adol or Pedi Dosage Unknown Completed [facility] Hep B, Adol or Pedi Dosage Unknown Completed [facility] Meningococcal Vaccine Unknown Completed [facility] MMR Unknown Completed [facility] MMR Unknown Completed [facility] Pneumococcal 13 Conjugate, PCV13 (Prevnar 13) Unknown Completed [facility] Polio (IPV/OPV) Unknown Completed [facility] Polio (IPV/OPV) Unknown Completed [facility] Polio (IPV/OPV) Unknown Completed [facility] Polio (IPV/OPV) Unknown Completed [facility] TDAP Unknown Completed [facility] Varicella (varivax)(chicken pox) Unknown Completed [facility] Varicella (varivax)(chicken pox) Unknown Completed [facility] Meningococcal B, OMV Unknown Completed [facility] Influenza Virus Vaccine Quad .5 mL IM 6+ MO (FLUZONE/FLULAVAL/FL UARIX) Unknown Completed [facility] TDAP Unknown Completed [facility] DTaP, Unspecified Formulation Unknown Completed [facility] DTaP, Unspecified Formulation Unknown Completed [facility] DTaP, Unspecified Formulation Unknown Completed [facility] DTaP, Unspecified Formulation Unknown Completed [facility] HEPA,NOS Unknown Completed [facility] HEPATITIS A Unknown Completed [facility] HIB 4 Dose Schedule Unknown Completed [facility] HIB 4 Dose Schedule Unknown Completed [facility] Meningococcal Polysaccharide (groups A, C, Y and W-135) conjugate vaccine (MCV4P) Unknown Completed [facility] Pneumococcal 7 Conjugate, PCV7 (Prevnar7) Unknown Completed [facility] IPV Unknown Completed [facility] IPV Unknown Completed [facility] IPV Unknown Completed [facility] IPV Unknown Completed [facility] TDAP Unknown Completed [facility] DTAP Unknown Completed [facility] DTAP Unknown Completed [facility] DTAP Unknown Completed [facility] DTAP Unknown Completed [facility] HIB 3 Dose Schedule Unknown Completed [facility] HIB 3 Dose Schedule Unknown Completed [facility] Hepatitis A Adult Unknown Completed [facility] Hepatitis A Adult Unknown [facility] B, Adol or Pedi Dosage Unknown Completed [facility] Hep B, Adol or Pedi Dosage Unknown Completed [facility] Hep B, Adol or Pedi Dosage Unknown Completed [facility] Meningococcal Vaccine Unknown Completed [facility] MMR Unknown Completed [facility] MMR Unknown Completed [facility] Pneumococcal 13 Conjugate, PCV13 (Prevnar 13) Unknown Completed [facility] Polio (IPV/OPV) Unknown Completed [facility] Polio (IPV/OPV) Unknown Completed [facility] Polio (IPV/OPV) Unknown Completed [facility] Polio (IPV/OPV) Unknown Completed [facility] TDAP Unknown Completed [facility] Varicella (varivax)(chicken pox) Unknown Completed [facility] Varicella (varivax)(chicken pox) Unknown Completed [facility] Meningococcal B, OMV Unknown Completed [facility] Influenza Virus Vaccine Quad .5 mL IM 6+ MO (FLUZONE/FLULAVAL/FL UARIX) Unknown Completed [facility] TDAP Unknown Completed [facility] DTaP, Unspecified Formulation Unknown Completed [facility] DTaP, Unspecified Formulation Unknown Completed [facility] DTaP, Unspecified Formulation Unknown Completed [facility] DTaP, Unspecified Formulation Unknown Completed [facility] HEPA,NOS Unknown Completed [facility] HEPATITIS A Unknown Completed [facility] HIB 4 Dose Schedule Unknown Completed [facility] HIB 4 Dose Schedule Unknown Completed [facility] Meningococcal Polysaccharide (groups A, C, Y and W-135) conjugate vaccine (MCV4P) Unknown Completed [facility] Pneumococcal 7 Conjugate, PCV7 (Prevnar7) Unknown Completed [facility] IPV Unknown Completed [facility] IPV Unknown Completed [facility] IPV Unknown Completed [facility] IPV Unknown Completed [facility] TDAP Unknown Completed [facility] Vital Signs Vital Name Observation Time Observation Value Comments S ource Systolic blood pressure 2023-02-08 22:19:00 135 mm[Hg] [facility] Diastolic blood pressure 2023-02-08 22:19:00 85 mm[Hg] [facility] Heart rate 2023-02-08 22:14:00 91 /min [facility] Body temperature 2023-02-08 22:14:00 36.39 Nabil[facility] Respiratory rate 2023-02-08 22:14:00 18 /min [facility] Body height 2023-02-08 22:14:00 167.6 cm [facility] Body weight 2023-02-08 22:14:00 78.382 kg [facility] BMI 2023-02-08 22:14:00 27.89 kg/m2 [facility] Systolic blood pressure 2022-08-12 15:38:00 123 mm[Hg] [facility] Diastolic blood pressure 2022-08-12 15:38:00 81 mm[Hg] [facility] Heart rate 2022-08-12 15:38:00 92 /min [facility] Body temperature 2022-08-12 15:38:00 35.83 Nabil[facility] Respiratory rate 2022-08-12 15:38:00 18 /min [facility] Body height 2022-08-12 15:38:00 167.6 cm [facility] Body weight 2022-08-12 15:38:00 80.377 kg [facility] BMI 2022-08-12 15:38:00 28.60 kg/m2 [facility] Systolic blood pressure 2022-08-01 15:20:00 134 mm[Hg] [facility] Diastolic blood pressure 2022-08-01 15:20:00 90 mm[Hg] [facility] Heart rate 2022-08-01 14:55:00 91 /min [facility] Body temperature 2022-08-01 14:55:00 36.5 Nabil[facility] Respiratory rate 2022-08-01 14:55:00 17 /min [facility] Body height 2022-08-01 14:55:00 167.6 cm [facility] Body weight 2022-08-01 14:55:00 81.874 kg [facility] BMI 2022-08-01 14:55:00 29.13 kg/m2 [facility] Systolic blood pressure 2022-07-29 16:00:00 131 mm[Hg] [facility] Diastolic blood pressure 2022-07-29 16:00:00 77 mm[Hg] [facility] Respiratory rate 2022-07-29 15:56:00 18 /min [facility] Heart rate 2022-07-29 12:15:00 112 /min [facility] Oxygen saturation in Arterial blood by Pulse oximetry 2022-07-29 12:15:00 96 /min [facility] Body temperature 2022-07-29 10:00:00 36.89 Nabila [facility] Body height 2022-07-29 03:10:00 167.6 cm [facility] Body weight 2022-07-29 03:10:00 83.643 kg [facility] BMI 2022-07-29 03:10:00 29.76 kg/m2 [facility] Systolic blood pressure 2022-07-25 13:45:00 140 mm[Hg] [facility] Diastolic blood pressure 2022-07-25 13:45:00 97 mm[Hg] [facility] Heart rate 2022-07-25 12:15:00 92 /min [facility] Body temperature 2022-07-25 12:15:00 36.67 Nabila [facility] Respiratory rate 2022-07-25 12:15:00 18 /min [facility] Oxygen saturation in Arterial blood by Pulse oximetry 2022-07-25 12:15:00 100 /min [facility] Body height 2022-07-24 14:30:00 167.6 cm [facility] Systolic blood pressure 2022-07-23 18:30:00 130 mm[Hg] [facility] Diastolic blood pressure 2022-07-23 18:30:00 84 mm[Hg] [facility] Heart rate 2022-07-23 18:30:00 115 /min [facility] Body temperature 2022-07-23 18:30:00 36.94 Nabil[facility] Respiratory rate 2022-07-23 18:30:00 18 /min [facility] Oxygen saturation in Arterial blood by Pulse oximetry 2022-07-23 18:30:00 99 /min [facility] Body height 2022-07-21 15:36:00 167.6 cm [facility] Body weight 2022-07-21 15:36:00 89.359 kg [facility] BMI 2022-07-21 15:36:00 31.80 kg/m2 [facility] Systolic blood pressure 2022-07-21 18:00:00 131 mm[Hg] [place] [facility] Diastolic blood pressure 2022-07-21 18:00:00 84 mm[Hg] [facility] Heart rate 2022-07-21 18:00:00 104 /min [facility] Body temperature 2022-07-21 18:00:00 36.56 Nabil[facility] Respiratory rate 2022-07-21 18:00:00 18 /min [facility] Oxygen saturation in Arterial blood by Pulse oximetry 2022-07-21 18:00:00 100 /min [facility] Body height 2022-07-21 15:36:00 167.6 cm [facility] Body weight 2022-07-21 15:36:00 89.359 kg [facility] BMI 2022-07-21 15:36:00 31.80 kg/m2 [facility] Systolic blood pressure 2022-07-17 17:09:00 103 mm[Hg] [place] [facility] Diastolic blood pressure 2022-07-17 17:09:00 51 mm[Hg] [facility] Heart rate 2022-07-17 17:09:00 82 /min [facility] Body temperature 2022-07-17 17:09:00 36.56 Nabila [facility] Respiratory rate 2022-07-17 17:09:00 16 /min [facility] Oxygen saturation in Arterial blood by Pulse oximetry 2022-07-17 17:09:00 99 /min [facility] Body height 2022-07-17 15:58:00 167.6 cm 5' 6" [facility] Body weight 2022-07-17 15:58:00 87.816 kg 193.6lb [facility] BMI 2022-07-17 15:58:00 31.25 kg/m2 [facility] Systolic blood pressure 2022-07-11 06:00:00 121 mm[Hg] [facility] Diastolic blood pressure 2022-07-11 06:00:00 68 mm[Hg] [facility] Heart rate 2022-07-11 06:00:00 100 [facility] Oxygen saturation in Arterial blood by Pulse oximetry 2022-07-11 06:00:00 99 /min [facility] Body temperature 2022-07-11 04:00:00 36.78 Nabila [facility] Respiratory rate 2022-07-11 04:00:00 18 /min [facility] Body height 2022-07-11 04:00:00 167.6 cm [facility] Body weight 2022-07-11 04:00:00 89.313 kg [facility] BMI 2022-07-11 04:00:00 31.78 kg/m2 [facility] Systolic blood pressure 2022-07-08 19:21:00 133 mm[Hg] [facility] Diastolic blood pressure 2022-07-08 19:21:00 79 mm[Hg] [facility] Heart rate 2022-07-08 19:21:00 94 /min [facility] Body temperature 2022-07-08 19:21:00 36.22 Nabil[facility] Respiratory rate 2022-07-08 19:21:00 18 /min [facility] Body height 2022-07-08 19:21:00 167.6 cm [facility] Body weight 2022-07-08 19:21:00 86.909 kg [facility] BMI 2022-07-08 19:21:00 30.93 kg/m2 [facility] Heart rate 2022-07-06 09:15:00 96 /min [facility] Oxygen saturation in Arterial blood by Pulse oximetry 2022-07-06 09:15:00 99 /min [facility] Systolic blood pressure 2022-07-06 05:20:00 121 mm[Hg] [facility] Diastolic blood pressure 2022-07-06 05:20:00 70 mm[Hg] [facility] Body temperature 2022-07-06 05:20:00 37.06 Nabil[facility] Body height 2022-07-06 05:20:00 167.6 cm [facility] Body weight 2022-07-06 05:20:00 86.637 kg [facility] BMI 2022-07-06 05:20:00 30.83 kg/m2 [facility] Respiratory rate 2022-07-06 05:01:00 16 /min [facility] Systolic blood pressure 2022-06-23 19:46:00 135 mm[Hg] [facility] Diastolic blood pressure 2022-06-23 19:46:00 85 mm[Hg] [facility] Heart rate 2022-06-23 19:46:00 102 /min [facility] Body temperature 2022-06-23 19:46:00 36.11 Nabil[facility] Respiratory rate 2022-06-23 19:46:00 18 /min [facility] Body height 2022-06-23 19:46:00 167.6 cm [facility] Body weight 2022-06-23 19:46:00 85.004 kg [facility] BMI 2022-06-23 19:46:00 30.25 kg/m2 [facility] Systolic blood pressure 2022-06-09 18:04:00 110 mm[Hg] [facility] Diastolic blood pressure 2022-06-09 18:04:00 60 mm[Hg] [facility] Heart rate 2022-06-09 17:59:00 112 /min [facility] Body temperature 2022-06-09 17:57:00 36.28 Nabil[facility] Respiratory rate 2022-06-09 17:57:00 18 /min [facility] Body height 2022-06-09 17:57:00 [facility].2 [facility] 2022-06-09 17:57:00 85.911 kg [facility] BMI 2022-06-09 17:57:00 29.66 kg/m2 [facility] Body temperature 2022-06-02 15:34:00 36.72 N[facility] Body weight 2022-06-02 15:34:00 85.73 kg [facility] BMI 2022-06-02 15:34:00 30.51 kg/m2 [facility] Systolic blood pressure 2022-05-26 15:34:00 111 mm[Hg] [facility] Diastolic blood pressure 2022-05-26 15:34:00 71 mm[Hg] [facility] Heart rate 2022-05-26 15:34:00 87 /min [facility] Body temperature 2022-05-26 15:34:00 36.33 Nabil[facility] Respiratory rate 2022-05-26 15:34:00 18 /min [facility] Body height 2022-05-26 15:34:00 167.6 cm [facility] Body weight 2022-05-26 15:34:00 85.73 kg [facility] BMI 2022-05-26 15:34:00 30.51 kg/m2 [facility] Body temperature 2022-05-19 15:46:00 36.17 Nabil[facility] Body weight 2022-05-19 15:46:00 85.095 kg [facility] BMI 2022-05-19 15:46:00 30.28 kg/m2 [facility] Systolic blood pressure 2022-05-12 20:15:00 122 mm[Hg] [facility] Diastolic blood pressure 2022-05-12 20:15:00 67 mm[Hg] [facility] Heart rate 2022-05-12 20:15:00 85 /min [facility] Body temperature 2022-05-12 20:15:00 35.83 Nabila [facility] Respiratory rate 2022-05-12 20:15:00 18 /min [facility] Body height 2022-05-12 20:15:00 167.6 cm [facility] Body weight 2022-05-12 20:15:00 83.961 kg [facility] BMI 2022-05-12 20:15:00 29.88 kg/m2 [facility] Body temperature 2022-05-05 16:37:00 36.56 Nabil[facility] Body weight 2022-05-05 16:37:00 83.553 kg [facility] Systolic blood pressure 2022-04-28 17:19:00 128 mm[Hg] [facility] Diastolic blood pressure 2022-04-28 17:19:00 73 mm[Hg] [facility] Heart rate 2022-04-28 17:19:00 87 /min [facility] Body temperature 2022-04-28 17:19:00 37.06 Nabila [facility] Respiratory rate 2022-04-28 17:19:00 18 /min [facility] Body weight 2022-04-28 17:19:00 82.736 kg [facility] Body temperature 2022-04-21 16:16:00 36.61 Nabil[facility] Body weight 2022-04-21 16:16:00 81.421 kg [facility] BMI 2022-04-21 16:16:00 28.97 kg/m2 [facility] Systolic blood pressure 2022-04-14 16:55:00 119 mm[Hg] [facility] Diastolic blood pressure 2022-04-14 16:55:00 72 mm[Hg] [facility] Heart rate 2022-04-14 16:55:00 75 /min [facility] Body temperature 2022-04-14 16:55:00 36.78 Nabila [facility] Respiratory rate 2022-04-14 16:55:00 16 /min [facility] Body height 2022-04-14 16:55:00 167.6 cm [facility] Body weight 2022-04-14 16:55:00 79.742 kg [facility] BMI 2022-04-14 16:55:00 28.37 kg/m2 [facility] Systolic blood pressure 2022-04-07 19:07:00 122 mm[Hg] [facility] Diastolic blood pressure 2022-04-07 19:07:00 76 mm[Hg] [facility] Heart rate 2022-04-07 19:07:00 95 /min [facility] Body temperature 2022-04-07 19:07:00 37.06 Nabila [facility] Respiratory rate 2022-04-07 19:07:00 20 /min [facility] Body weight 2022-04-07 19:07:00 78.835 kg [facility] Systolic blood pressure 2022-03-31 15:59:00 118 mm[Hg] [facility] Diastolic blood pressure 2022-03-31 15:59:00 76 mm[Hg] [facility] Heart rate 2022-03-31 15:59:00 82 /min [facility] Body temperature 2022-03-31 15:59:00 37.11 Nabila [facility] Respiratory rate 2022-03-31 15:59:00 18 /min [facility] Body height 2022-03-31 15:59:00 167.6 cm [facility] Body weight 2022-03-31 15:59:00 76.885 kg [facility] BMI 2022-03-31 15:59:00 27.36 kg/m2 [facility] Body temperature 2022-03-24 15:55:00 36.61 Nabila [facility] Respiratory rate 2022-03-24 15:55:00 18 /min [facility] Body weight 2022-03-24 15:55:00 75.796 kg [facility] Systolic blood pressure 2022-03-10 17:15:00 116 mm[Hg] [facility] Diastolic blood pressure 2022-03-10 17:15:00 74 mm[Hg] [facility] Heart rate 2022-03-10 17:15:00 77 /min [facility] Body temperature 2022-03-10 17:15:00 36.94 Nabila [facility] Respiratory rate 2022-03-10 17:15:00 20 /min [facility] Body height 2022-03-10 17:15:00 167.6 cm [facility] Body weight 2022-03-10 17:15:00 72.938 kg [facility] BMI 2022-03-10 17:15:00 25.95 kg/m2 [facility] Systolic blood pressure 2022-02-24 16:18:00 109 mm[Hg] [facility] Diastolic blood pressure 2022-02-24 16:18:00 68 mm[Hg] [facility] Heart rate 2022-02-24 16:18:00 83 /min [facility] Body temperature 2022-02-24 16:18:00 36.44 Nabila [facility] Respiratory rate 2022-02-24 16:18:00 18 /min [facility] Body height 2022-02-24 16:18:00 167.6 cm [facility] Body weight 2022-02-24 16:18:00 69.673 kg [facility] BMI 2022-02-24 16:18:00 24.79 kg/m2 [facility] Systolic blood pressure 2022-02-10 19:32:00 135 mm[Hg] [facility] Diastolic blood pressure 2022-02-10 19:32:00 90 mm[Hg] [facility] Heart rate 2022-02-10 19:32:00 130 /min [facility] Body temperature 2022-02-10 19:32:00 36.89 Nabila [facility] Respiratory rate 2022-02-10 19:32:00 20 /min [facility] Body height 2022-02-10 19:32:00 167.6 cm [facility] Body weight 2022-02-10 19:32:00 71.215 kg [facility] BMI 2022-02-10 19:32:00 25.34 kg/m2 [facility] Systolic blood pressure 2022-01-27 15:32:00 127 mm[Hg] [facility] Diastolic blood pressure 2022-01-27 15:32:00 77 mm[Hg] [facility] Heart rate 2022-01-27 15:32:00 99 /min [facility] Body temperature 2022-01-27 15:32:00 36.22 Nabil[facility] Respiratory rate 2022-01-27 15:32:00 20 /min [facility] Body height 2022-01-27 15:32:00 167.6 cm [facility] Body weight 2022-01-27 15:32:00 70.988 kg [facility] BMI 2022-01-27 15:32:00 25.26 kg/m2 [facility] Systolic blood pressure 2021-12-23 14:24:00 118 mm[Hg] [facility] Diastolic blood pressure 2021-12-23 14:24:00 77 mm[Hg] [facility] Heart rate 2021-12-23 14:24:00 87 /min [facility] Body temperature 2021-12-23 14:24:00 37 Nabila [facility] Respiratory rate 2021-12-23 14:24:00 18 /min [facility] Body height 2021-12-23 14:24:00 167.6 cm [facility] Body weight 2021-12-23 14:24:00 70.761 kg [facility] BMI 2021-12-23 14:24:00 25.18 kg/m2 [facility] Systolic blood pressure 2021-12-09 14:24:00 118 mm[Hg] [facility] Diastolic blood pressure 2021-12-09 14:24:00 79 mm[Hg] [facility] Heart rate 2021-12-09 14:24:00 88 /min [facility] Body temperature 2021-12-09 14:24:00 36.67 Nabila [facility] Respiratory rate 2021-12-09 14:24:00 16 /min [facility] Body height 2021-12-09 14:24:00 167.6 cm [facility] Body weight 2021-12-09 14:24:00 72.53 kg [facility] BMI 2021-12-09 14:24:00 25.81 kg/m2 [facility] Oxygen saturation in Arterial blood by Pulse oximetry 2021-12-09 14:24:00 97 /min [facility] Systolic blood pressure 2021-10-12 18:17:00 124 mm[Hg] [facility] Diastolic blood pressure 2021-10-12 18:17:00 90 mm[Hg] [facility] Heart rate 2021-10-12 18:17:00 112 /min [facility] Body temperature 2021-10-12 18:17:00 37.11 Nabila [facility] Respiratory rate 2021-10-12 18:17:00 20 /min [facility] Body height 2021-10-12 18:17:00 167.6 cm [facility] Body weight 2021-10-12 18:17:00 68.04 kg [facility] BMI 2021-10-12 18:17:00 24.21 kg/m2 [facility] Procedures Procedure Date / Time Performed Performing Clinician Source GC & CHLAMYDIA AMPLIFIED ASSAY 2023-02-08 22:47:00 Tushar Lan [facility] TRICHOMONAS AMPLIFIED ASSAY 2023-02-08 22:47:00 Tushar Lan [facility] POCT TEST 2023-02-08 22:44:00 Omar Lan [facility] ASSIGNMENT OF BENEFITS 2023-02-08 22:03:35 Docto r Unassigned, [place] [facility] PROTEIN CREAT RATIO URINE RANDOM 2022-07-29 05:00:00 Velez-Carrillo, Kasey [facility] CBC WITH DIFF 2022-07-25 10:37:00 Tony Blanco [facility] COMP. METABOLIC PANEL (46159) 2022-07-25 03:06:00 Francis [facility] CBC WITH DIFF 2022-07-25 03:06:00 Tony Blanco [facility] PROTEIN CREAT RATIO URINE RANDOM 2022-07-25 03:06:00 Francis [facility] CBC WITH DIFF 2022-07-22 08:27:00 Adum, Hetal Min [facility] CBC WITH DIFF 2022-07-22 08:27:00 Adum, Hetal Min [facility] SECTION 2022-07-21 18:36:00 Adum, [facility]etal [facility] 2022-07-21 18:36:00 Adum, Hetal Villegas [facility] URINE DRUG (IMMUNOASSAY) - COMPREHENSIVE DRUG SCREEN W/O REFLEX 2022-07-21 18:12:00 Adum, Hetal Mario [facility] URINE DRUG (IMMUNOASSAY) - COMPREHENSIVE DRUG SCREEN W/O REFLEX 2022-07-21 18:12:00 Adum, Hetal Mario [facility] CBC WITH DIFF 2022-07-21 16:52:00 Adum, Hetal Min [facility] HEPATITIS B SURFACE ANTIGEN 2022-07-21 16:52:00 Adum, Hetal Mario [facility] HB ABO GROUPING 2022-07-21 16:52:00 Adum, [facility]etal [facility] - RPR 2022-07-21 16:52:00 Adum, Hetal Mario [facility] HIV 1/2 AG-AB WITH REFLEX 2022-07-21 16:52:00 Adum, Hetal Mario [facility] CBC WITH DIFF 2022-07-21 16:52:00 Adum, Hetal Min [facility] HEPATITIS B SURFACE ANTIGEN 2022-07-21 16:52:00 Adum, Hetal Mario [facility] HB ABO GROUPING 2022-07-21 16:52:00 [facility]um[facility] [place] - [facility] 2022-07-21 16:52:00 Adum, Hetal Mario [facility] HIV 1/2 AG-AB WITH REFLEX 2022-07-21 16:52:00 Adum, Hetal Mario [facility] RHO (D) IMMUNE GLOBULIN 2022-07-21 16:52:00 Kasey Aviles [facility] ONLY - FERN TEST 2022-07-21 16:06:00 Adum, Hetal Mario [facility] ONLY - FERN TEST 2022-07-21 16:06:00 Adum, Hetal Fabiano [facility] CONSENT/REFUSAL FOR DIAGNOSIS AND TREATMENT 2022-07-21 15:31:39 Doctor Unassigned, [place] [facility] CONSENT/REFUSAL FOR DIAGNOSIS AND TREATMENT 2022-07-21 15:31:39 Doctor Unassigned, [place] [facility] URINALYSIS 2022-07-17 16:35:00 Adum, Hetal Mario [facility] ONLY - FERN TEST 2022-07-17 16:35:00 Adum, Hetal Mario [facility] URINALYSIS 2022-07-11 06:30:00 [place] Arzola [facility] OR [facility] ONLY - WET PREP 2022-07-11 06:30:00 [place] Arzola [facility] NOTICE OF PRIVACY PRACTICES 2022-07-11 03:43:30 Doctor Unassigned, [place] [facility] CONSENT/REFUSAL FOR DIAGNOSIS AND TREATMENT 2022-07-11 03:43:01 Doctor Unassigned, [place] [facility] ASSIGNMENT OF BENEFITS 2022-07-11 03:42:40 Docto r Unassigned, [place] [facility] POCT URINALYSIS 2022-07-08 19:23:00 Antonette Luque [facility] L&D VISIT (NON-DELIVERED) 2022-07-06 05:01:00 Doctor Unassigned, [place] [facility] ASSIGNMENT OF BENEFITS 2022-07-06 04:55:57 Docto r Unassigned, [place] [facility] POCT URINALYSIS 2022-06-23 19:48:00 Antonette Luque [facility] POCT URINALYSIS 2022-06-09 18:04:00 Antonette Luque [facility] TDAP VACCINE, >11 YRS, IM 2022-05-26 15:59:59 Tushar Lan [facility] GLUCOSE 1 HOUR POST PRANDIAL 2022-05-12 21:16:00 Tushar Lan [facility] CBC WITH DIFF 2022-05-12 21:16:00 Tushar Lan [facility] POCT URINALYSIS 2022-05-12 20:18:00 Antonette Luque [facility] POCT URINALYSIS 2022-04-28 17:24:00 Antonette Luque [facility] SECOND AND THIRD TRIMESTER ULTRASOUND 2022-04-14 15:44:00 Antonette Luque [facility] POCT URINALYSIS 2022-03-31 16:02:00 Antonette Luque [facility] POCT URINALYSIS 2022-03-10 00:00:00 Antonette Luque [facility] POCT URINALYSIS 2022-02-24 16:30:00 Antonette Luque [facility] POCT URINALYSIS 2022-02-10 00:00:00 Antonette Luque [facility] POCT URINALYSIS 2022-01-27 15:33:00 Antonette Luque [facility] REPORT OF 2021-12-23 05:01:00 Doctor Mal scott, [place] [facility] POCT TEST 2021-12-23 00:00:00 Yuly Luque [facility] POCT URINALYSIS W/O SPECIFIC GRAVITY 2021-12-23 00:00:00 Antonette Luque [facility] FIRST TRIMESTER LESS THAN 14 WEEKS WITH TRANSVAGINAL 2021-12-14 21:24:20 Sara Snyder [facility] ASSIGNMENT OF BENEFITS 2021-12-14 19:54:43 Docto r Unassigned, [place] [facility] POCT TEST 2021-12-09 00:00:00 Holden Snyder [facility] POCT TEST 2021-10-12 18:22:00 Omar Lan [facility] Encounters Start Date/Time End Date/Time Encounter Type Admission Type Attending Clinicians Care Facility Care Department Encounter ID Source 2022-07-24 07:39:17 Outpatient P VELEZ-ADAMARIS S, KASEY VELEZ-ADAMARIS S, KASEY [facility] [id number] [facility] 2022-07-11 03:19:31 Outpatient X [facility] [id number] [facility] 2020-12-27 22:10:58 Emergency [facility] [id number] [facility] 2020-12-27 22:10:57 Emergency [facility] [id number] [facility] 2020-12-27 19:19:43 Outpatient P [facility] [id number] [facility] 2020-12-27 19:19:36 Outpatient P [facility] [id number] [facility] 2023-02-09 10:30:00 2023-02-09 10:45:00 Game Artist Visit Lab, Ang-Rmchp Tushar Lan [facility] STAPLE SHEAR OPERATOR [facility] [id number] [facility] 2023-02-09 10:30:00 2023-02-09 10:30:00 Outpatient R TUSHAR LAN [facility] [id number] [facility] 2023-02-08 16:00:00 2023-02-08 16:42:47 Outpatient R TUSHAR LAN [facility] [id number] [facility] 2023-02-08 16:00:00 2023-02-08 16:42:47 Office Visit Tushar Lan [facility] [employer] SHEAR OPERATOR [facility] [place] [email or web address] 1.840.114 350.1.13.10 4.2.7.2.686 [id number] 107 [id number] [facility] 2023-02-08 00:00:00 2023-02-08 00:00:00 Orders Only Doctor Unassigned, [place] [facility] 1.84.114 350.1.13.10 4.2.7.2.686 [id number] [facility] 2022-12-08 14:45:00 2022-12-08 14:45:00 Outpatient R TUSHAR LAN [facility] [id number] [facility] 2022-09-07 15:15:00 2022-09-07 16:22:49 Outpatient R TUSHAR LAN [facility] [id number] [facility] 2022-08-29 00:00:00 2022-08-29 00:00:00 Telephone Tushar Lan [facility] STAPLE SHEAR OPERATOR [facility] [[email or web address]] 1.840.114 350.1.13.10 4.2.7.2.686 [id number] 107 [id number] [facility] 2022-08-29 00:00:00 2022-08-29 00:00:00 Telephone Tushar Lan [facility] STAPLE SHEAR OPERATOR [facility] [[email or web address]] 1.840.114 350.1.13.10 4.2.7.2.686 [id number] 107 [id number] [facility] 2022-08-12 10:00:00 2022-08-12 11:16:38 Outpatient R TUSHAR LAN [facility] [id number] [facility] 2022-08-12 10:00:00 2022-08-12 11:16:38 Routine Visit Riky Tushar C [facility] STAPLE SHEAR OPERATOR [facility] [[email or web address]] 1.2.840.114 350.1.13.10 4.2.7.2.686 [id number] 107 [id number] [facility] 2022-08-01 09:30:00 2022-08-01 10:21:06 Nurse Visit Visit, Ang-Rmchp Nurse ReidjohnathanAshlynTushar C [facility] STAPLE SHEAR OPERATOR [facility] [[email or web address]] 1.2.840.114 350.1.13.10 4.2.7.2.686 [id number] 107 [id number] [facility] 2022-08-01 09:30:00 2022-08-01 09:30:00 Outpatient R TUSHAR LAN [facility] [id number] [facility] 2022-08-01 00:00:00 2022-08-01 00:00:00 Patient Secure Msg Tushar Lan [facility] STAPLE SHEAR OPERATOR [facility] [[email or web address]] 1.2.840.114 350.1.13.10 4.2.7.2.686 [id number] 107 [id number] [facility] 2022-08-01 00:00:00 2022-08-01 00:00:00 Patient Secure Msg Tushar Lan [facility] STAPLE SHEAR OPERATOR [facility] [[email or web address]] 1.2.840.114 350.1.13.10 4.2.7.2.686 [id number] [facility] 2022-07-28 20:06:00 2022-07-29 12:45:00 Outpatient HETAL FLETCHER [facility] [id number] [facility] 2022-07-28 20:06:00 2022-07-29 12:45:00 Hospital Encounter Kasey Young Vivian L [facility] 1.2.840.114 350.1.13.10 4.2.7.2.686 [id number] [id number] [facility] 2022-07-27 00:00:00 2022-07-27 00:00:00 Nurse Triage Patt Nova [facility] 1.2.840.114 350.1.13.10 4.2.7.2.686 [id number] [facility] 2022-07-26 00:00:00 2022-07-26 00:00:00 Telephone Tushar Lan [facility] STAPLE SHEAR OPERATOR [facility] 1.2.840.114 350.1.13.10 4.2.7.2.686 [id number] 107 [id number] [facility] 2022-07-24 09:28:00 2022-07-25 12:30:00 Outpatient P VELEZ-ADAMARIS S, KASEY VELEZ-ADAMARIS S, KASEY [facility] LINTER TENDER [id number] [facility] 2022-07-24 09:28:00 2022-07-25 12:30:00 Hospital Encounter Kelin-Adamaris s, Kasey [facility] 1.2.840.114 350.1.13.10 4.2.7.2.686 [id number] [id number] [facility] 2022-07-21 10:37:00 2022-07-23 13:45:00 Inpatient X HETAL NORRIS [facility] ELIAZAR [id number] [facility] 2022-07-21 10:37:00 2022-07-23 13:45:00 Hospital Encounter Luciana Norriseliseo Mario [facility] 1.2.840.114 350.1.13.10 4.2.7.2.686 [id number] [id number] [facility] 2022-07-21 12:35:00 2022-07-21 14:27:00 Surgery AdgideonHetal [facility] 1.2840.114 350.1.13.10 4.2.7.2.686 [id number] [facility] 2022-07-21 10:45:00 2022-07-21 10:45:00 Outpatient R TUSHAR LAN [facility] [id number] [facility] 2022-07-19 00:00:00 2022-07-19 00:00:00 Case Management AdHetal michele [facility] 1.2840.114 350.1.13.10 4.2.7.2.686 [id number] [facility] 2022-07-17 10:38:00 2022-07-17 12:40:00 Outpatient X ADHETAL MICHELE [facility] [id number] [facility] 2022-07-17 10:38:00 2022-07-17 12:40:00 Emergency AdumHetal [facility] 1.2840.114 350.1.13.10 4.2.7.2.686 [id number] [id number] [facility] 2022-07-10 22:46:00 2022-07-11 03:10:00 Outpatient X AUSTIN ARZOLA [facility] [id number] [facility] 2022-07-10 22:46:00 2022-07-11 03:10:00 Emergency Austin Arzola Cam [facility] 1.2.840.114 350.1.13.10 4.2.7.2.686 [id number] [facility] 2022-07-11 00:00:00 2022-07-11 00:00:00 Telephone Tushar Lan [facility] STAPLE SHEAR OPERATOR [facility] 1.2840.114 350.1.13.10 4.2.7.2.686 [id number] 107 [id number] [facility] 2022-07-08 14:15:00 2022-07-08 14:41:47 Outpatient R TUSHAR LAN [facility] [id number] [facility] 2022-07-08 14:15:00 2022-07-08 14:41:47 Routine Visit Tushar Lan IASOLE STAPLE SHEAR OPERATOR [facility] 1.2.840.114 350.1.13.10 4.2.7.2.686 [id number] 107 [id number] [facility] 2022-07-06 00:06:00 2022-07-06 04:42:00 Outpatient P HETAL NORRIS [facility] [id number] [facility] 2022-07-06 00:06:00 2022-07-06 04:42:00 Emergency AdHetal michele [facility] 1.2.840.114 350.1.13.10 4.2.7.2.686 [id number] [id number] [facility] 2022-07-06 00:00:00 2022-07-06 00:00:00 Orders Only Doctor Unassigned, [place] [facility] 1.2.840.114 350.1.13.10 4.2.7.2.686 [id number] [facility] 2022-07-05 00:00:00 2022-07-05 00:00:00 Orders Only Doctor Unassigned, [place] [facility] 1.2.840.114 350.1.13.10 4.2.7.2.686 [id number] [facility] 2022-06-23 14:45:00 2022-06-23 15:08:35 Outpatient R TUSHAR LAN [facility] [id number] [facility] 2022-06-23 14:45:00 2022-06-23 15:08:35 Routine Visit Tushar Lan [facility] STAPLE SHEAR OPERATOR [facility] [[email or web address]] 1.2.840.114 350.1.13.10 4.2.7.2.686 [id number] 107 [id number] [facility] 2022-06-16 13:00:00 2022-06-16 13:00:00 Outpatient R TUSHAR LAN [facility] [id number] [facility] 2022-06-09 12:45:00 2022-06-09 13:24:30 Outpatient R TUSHAR LAN [facility] [id number] [facility] 2022-06-09 12:45:00 2022-06-09 13:24:30 Routine Visit BrynTushar bryant [facility] STAPLE SHEAR OPERATOR [email or web address]] 1.2.840.114 350.1.13.10 4.2.7.2.686 [id number] [facility] 2022-06-02 10:30:00 2022-06-02 10:42:00 Nurse Visit Visit, Ang-Rmchp Nurse BrynTushar bryant [facility] STAPLE SHEAR OPERATOR [facility] [[email or web address]] 1.2.840.114 350.1.13.10 4.2.7.2.686 [id number] [facility] 2022-06-02 10:30:00 2022-06-02 10:30:00 Outpatient R TUSHAR LAN [facility] [id number] [facility] 2022-05-26 10:30:00 2022-05-26 11:07:20 Outpatient R TUSHAR LAN [facility] [id number] [facility] 2022-05-26 10:30:00 2022-05-26 11:07:20 Routine Visit BrynTushar bryant [facility] STAPLE SHEAR OPERATOR [email or web address]] 1.2.840.114 350.1.13.10 4.2.7.2.686 [id number] 107 [id number] [facility] 2022-05-19 10:30:00 2022-05-19 11:03:10 Nurse Visit Visit, WestRmchTushar Salazar [facility] STAPLE SHEAR OPERATOR [facility] [[email or web address]] 1.2.840.114 350.1.13.10 4.2.7.2.686 [id number] 107 [id number] [facility] 2022-05-19 10:30:00 2022-05-19 10:30:00 Outpatient R TUSHAR LAN [facility] [id number] [facility] 2022-05-12 14:45:00 2022-05-12 15:46:52 Outpatient R TUSHAR LAN [facility] [id number] [facility] 2022-05-12 14:45:00 2022-05-12 15:46:52 Routine Visit Tushar Lan [facility] STAPLE SHEAR OPERATOR [facility] [[email or web address]] 1.2.840.114 350.1.13.10 4.2.7.2.686 [id number] 107 [id number] [facility] 2022-05-05 10:30:00 2022-05-05 10:45:51 Nurse Visit Visit, WestRmchTushar Salazar [facility] STAPLE SHEAR OPERATOR [facility] [[email or web address]] 1.2.840.114 350.1.13.10 4.2.7.2.686 [id number] 107 [id number] [facility] 2022-05-05 10:30:00 2022-05-05 10:30:00 Outpatient R TUSHAR LAN [facility] [id number] [facility] 2022-04-28 11:00:00 2022-04-28 11:44:12 Outpatient R TUSHAR LAN [facility] [id number] [facility] 2022-04-28 11:00:00 2022-04-28 11:44:12 Routine Visit Tushar Lan [facility] STAPLE SHEAR OPERATOR [facility] [[email or web address]] 1.2.840.114 350.1.13.10 4.2.7.2.686 [id number] 107 [id number] [facility] 2022-04-21 10:00:00 2022-04-21 10:30:36 Nurse Visit Visit, Antonette Ojeda [facility] STAPLE SHEAR OPERATOR [facility] [[email or web address]] 1.2840.114 350.1.13.10 4.2.7.2.686 [id number] 107 [id number] [facility] 2022-04-21 10:00:00 2022-04-21 10:00:00 Outpatient R ANTONETTE LUQUE [facility] [id number] [facility] 2022-04-14 09:15:00 2022-04-14 11:39:36 Routine Visit Risk, Neftali-N p/High Thaddeus [facility] STAPLE SHEAR OPERATOR [facility] [[email or web address]] 1.840.114 350.1.13.10 4.2.7.2.686 [id number] 107 [id number] [facility] 2022-04-14 10:30:00 2022-04-14 10:45:00 Nurse Visit Visit, Neftali Nurse Tushar Lan [facility] STAPLE SHEAR OPERATOR [email or web address]] 1.2840.114 350.1.13.10 4.2.7.2.686 [id number] 107 [id number] [facility] 2022-04-14 09:30:00 2022-04-14 10:39:28 Outpatient P SHEREEN SKY [facility] [id number] [facility] 2022-04-14 09:30:00 2022-04-14 10:39:28 Game Artist Visit Ultrasound, Leonardo Sky [facility] STAPLE SHEAR OPERATOR [email or web address]] 1.2.840.114 350.1.13.10 4.2.7.2.686 [id number] [facility] 2022-04-14 10:30:00 2022-04-14 10:30:00 Outpatient TUSHAR COHN [facility] [id number] [facility] 2022-04-14 00:00:00 2022-04-14 00:00:00 Case Management Antonette Luque [facility] STAPLE SHEAR OPERATOR [email or web address]] 1..840.114 350.1.13.10 4.2.7.2.686 [id number] 107 [id number] [facility] 2022-04-07 13:00:00 2022-04-07 13:13:39 Nurse Visit Visit, Neftali Nurse Tushar Lan [facility] STAPLE SHEAR OPERATOR [email or web address]] .840.114 350.1.13.10 4.2.7.2.686 [id number] 107 [id number] [facility] 2022-04-07 13:00:00 2022-04-07 13:00:00 Outpatient TUSHAR COHN [facility] [id number] [facility] 2022-04-07 00:00:00 2022-04-07 00:00:00 Telephone Tushar Lan [email or web address]] ..840.114 350.1.13.10 4.2.7.2.686 [id number] 107 [id number] [facility] 2022-03-31 09:45:00 2022-03-31 10:58:49 Outpatient EDWIN BARNARD [facility] [id number] [facility] 2022-03-31 09:45:00 2022-03-31 10:58:49 Routine Visit Risk, Satishp-N p/High Edwin Cage [email or web address] 1.2.840.114 350.1.13.10 4.2.7.2.686 [id number] 107 [id number] [facility] 2022-03-24 10:00:00 2022-03-24 10:00:00 Nurse Visit Visit, Neftali Nurse Tushar Lan [facility] STAPLE SHEAR OPERATOR [email or web address]] 1.840.114 350.1.13.10 4.2.7.2.686 [id number] 107 [id number] [facility] 2022-03-24 10:00:00 2022-03-24 09:55:01 Outpatient R TUSHAR LAN [facility] [id number] [facility] 2022-03-15 00:00:00 2022-03-15 00:00:00 Telephone Tushar Lan [facility] STAPLE SHEAR OPERATOR [email or web address]] .840.114 350.1.13.10 4.2.7.2.686 [id number] 107 [id number] [facility] 2022-03-10 11:00:00 2022-03-10 11:45:31 Outpatient R EDWIN CAGE [facility] [id number] [facility] 2022-03-10 11:00:00 2022-03-10 11:45:31 Routine Visit Risk, WestRmchp-N p/High Edwin Cage [facility] STAPLE SHEAR OPERATOR [email or web address]] 1.840.114 350.1.13.10 4.2.7.2.686 [id number] 107 [id number] [facility] 2022-03-10 10:30:00 2022-03-10 10:30:00 Outpatient R [facility] [id number] [facility] 2022-03-07 00:00:00 2022-03-07 00:00:00 Telephone Tushar Lan [facility] STAPLE SHEAR OPERATOR [email or web address]] 1.2.840.114 350.1.13.10 4.2.7.2.686 [id number] 107 [id number] [facility] 2022-03-07 00:00:00 2022-03-07 00:00:00 Case Management Edwin Cage [facility] STAPLE SHEAR OPERATOR [email or web address]] 1..840.114 350.1.13.10 4.2.7.2.686 [id number] 107 [id number] [facility] 2022-02-24 10:00:00 2022-02-24 11:04:18 Outpatient EDWIN BARNARD [facility] [id number] [facility] 2022-02-24 10:00:00 2022-02-24 11:04:18 Routine Visit Risk, Ang-Rmchp-N p/High Edwin Cage [facility] STAPLE SHEAR OPERATOR [facility] 1.840.114 350.1.13.10 4.2.7.2.686 [id number] 107 [id number] [facility] 2022-02-10 13:15:00 2022-02-10 13:59:26 Outpatient R EDWIN CAGE [facility] [id number] [facility] 2022-02-10 13:15:00 2022-02-10 13:59:26 Routine Visit Risk, Ang-Rmchp-N p/High Edwin Cage [facility] STAPLE SHEAR OPERATOR [email or web address] 1..840.114 350.1.13.10 4.2.7.2.686 [id number] 107 [id number] [facility] 2022-01-27 09:00:00 2022-01-27 10:00:53 Outpatient EDWIN BARNARD [facility] [id number] [facility] 2022-01-27 09:00:00 2022-01-27 10:00:53 Routine Visit Risk, Ang-Rmchp-N p/High Edwin Cage [facility] STAPLE SHEAR OPERATOR [email or web address] 1.840.114 350.1.13.10 4.2.7.2.686 [id number] 107 [id number] [facility] 2022-01-10 00:00:00 2022-01-10 00:00:00 Case Management Antonette Luque [facility] STAPLE SHEAR OPERATOR [email or web address] 1.840.114 350.1.13.10 4.2.7.2.686 [id number] 107 [id number] [facility] 2022-01-06 15:15:00 2022-01-06 15:45:00 Game Artist Visit Ultrasound, Leonardo Cooper David [facility] STAPLE SHEAR OPERATOR [email or web address]] 1.0.114 350.1.13.10 4.2.7.2.686 [id number] [facility] 2022-01-06 15:15:00 2022-01-06 15:15:00 Outpatient DAVID OCHOA [facility] [id number] [facility] 2021-12-30 10:00:00 2021-12-30 10:00:00 Outpatient SARA TROY CHERYAL [facility] [id number] [facility] 2021-12-23 09:15:00 2021-12-23 10:41:00 Outpatient ANTONETTE KEENAN [facility] [id number] [facility] 2021-12-23 09:15:00 2021-12-23 10:41:00 Initial Visit Provider, Niki Mayfield Brenda A [facility] STAPLE SHEAR OPERATOR [email or web address] 1.84.114 350.1.13.10 4.2.7.2.686 [id number] 107 [id number] [facility] 2021-12-23 00:00:00 2021-12-23 00:00:00 Orders Only Doctor Unassigned, [place] [facility] 1.2.840.114 350.1.13.10 4.2.7.2.686 [id number] [facility] 2021-12-17 00:00:00 2021-12-17 00:00:00 Case Management Sara Snyder [facility] 1.2.840.114 350.1.13.10 4.2.7.2.686 [id number] [facility] 2021-12-14 14:55:04 2021-12-14 23:59:00 Outpatient R SARA SNYDER [facility] [id number] [facility] 2021-12-14 14:55:04 2021-12-14 23:59:00 Hospital Encounter Sara Snyder [facility] 1.2.840.114 350.1.13.10 4.2.7.2.686 [id number] [facility] 2021-12-14 00:00:00 2021-12-14 00:00:00 Orders Only Doctor Unassigned, [place] [facility] 1.2.840.114 350.1.13.10 4.2.7.2.686 [id number] [facility] 2021-12-09 09:00:00 2021-12-09 09:43:20 Outpatient R SARA SNYDER [facility] [id number] [facility] 2021-12-09 09:00:00 2021-12-09 09:43:20 Initial Visit Sara Snyder [facility] 1.2.840.114 350.1.13.10 4.2.7.2.686 [id number] [facility] 2021-10-12 13:00:00 2021-10-12 13:34:47 Office Visit Tushar Lan [facility] STAPLE SHEAR OPERATOR [email or web address] 1..840.114 350.1.13.10 4.2.7.2.686 [id number] 107 [id number] [facility] 2021-10-12 13:00:00 2021-10-12 13:34:47 Outpatient R TUSHAR LAN [facility] [id number] [facility] 2021-10-12 13:00:00 2021-10-12 13:00:00 Outpatient R TUSHAR LAN [facility] [id number] [facility] 2021-10-12 13:00:00 2021-10-12 13:00:00 Outpatient R TUSHAR LAN [facility] [id number] [facility] 2021-10-12 00:00:00 2021-10-12 00:00:00 Orders Only Doctor Unassigned, [place] [facility] 1..840.114 350.1.13.10 4.2.7.2.686 [id number] [facility] 2021-09-28 12:45:00 2021-09-28 14:31:13 Outpatient R TUSHAR ALN [facility] [id number] [facility] 2021-09-28 12:45:00 2021-09-28 14:31:13 Office Visit Tushar Lan [facility] STAPLE SHEAR OPERATOR [facility] [[email or web address] 1..840.114 350.1.13.10 4.2.7.2.686 [id number] 107 [id number] [facility] 2021-08-05 16:15:00 2021-08-05 16:15:00 Outpatient JAM DESIR [facility] [id number] [facility] 2021-06-18 11:00:00 2021-06-18 11:00:00 Outpatient CLINTON CEDILLO [facility] [id number] [facility] 2021-06-15 00:00:00 2021-06-15 00:00:00 Orders Only Doctor Unassigned, [place] [facility] 1.2.840.114 350.1.13.10 4.2.7.2.686 [id number] [facility] 2021-06-15 00:00:00 2021-06-15 00:00:00 Patient Secure Msg Doctor Unassigned, [place] [facility] 1.2840.114 350.1.13.10 4.2.7.2.686 [id number] [facility] 2021-03-09 14:00:00 2021-03-09 14:00:00 Outpatient R TUSHAR LAN [facility] [id number] [facility] 2021-03-02 00:00:00 2021-03-02 00:00:00 Telephone Tushar Lan [facility] STAPLE SHEAR OPERATOR [facility] [[email or web address]] 1.840.114 350.1.13.10 4.2.7.2.686 [id number] 107 [id number] [facility] 2021-02-12 00:00:00 2021-02-12 00:00:00 Ernesto Hoffman [facility] ST[employer] SHEAR OPERATOR [facility] & [facility] [[email or web address]] 1.2840.114 350.1.13.10 4.2.7.2.686 [id number] 107 [id number] [facility] 2021-02-11 00:00:00 2021-02-11 00:00:00 Tushar Galaviz [facility] ST[employer] SHEAR OPERATOR [facility] & [facility] [[email or web address]] 1.2.840.114 350.1.13.10 4.2.7.2.686 [id number] 107 [id number] [facility] 2021-01-27 00:00:00 2021-01-27 00:00:00 Ernesto Hoffman [facility] STAPLE SHEAR OPERATOR [facility] [[email or web address]] 1.2.840.114 350.1.13.10 4.2.7.2.686 [id number] [facility] 2021-01-18 16:00:00 2021-01-18 16:18:34 Outpatient R ERNESTO PEACOCK [facility] [id number] [facility] 2021-01-18 15:59:18 2021-01-18 16:18:34 Office Visit Ernesto Peacock [facility] STAPLE SHEAR OPERATOR [facility] & [facility] [[email or web address]] 1..840.114 350.1.13.10 4.2.7.2.686 [id number] 107 [id number] [facility] 2021-01-18 16:00:00 2021-01-18 16:00:00 Outpatient ERNESTO STARKS [facility] [id number] [facility] 2021-01-15 13:15:00 2021-01-15 13:15:00 Outpatient ERNESTO STARKS [facility] [id number] [facility] 2020-12-11 00:00:00 2020-12-11 00:00:00 Telephone Tushar Lan [facility] ST[employer]LE SHEAR OPERATOR [facility] [[email or web address]] 1..840.114 350.1.13.10 4.2.7.2.686 [id number] 107 [id number] [facility] 2020-10-20 13:30:06 2020-10-20 14:12:47 Office Visit Niki Ralph [facility] STAPLE SHEAR OPERATOR [facility] [[email or web address]] 1.2.840.114 350.1.13.10 4.2.7.2.686 [id number] 107 [id number] [facility] 2020-10-20 13:30:00 2020-10-20 13:30:00 Outpatient NIKI SHIN [facility] [id number] [facility] 2020-10-14 15:00:00 2020-10-14 15:00:00 Outpatient R TUSHAR LAN [facility] [id number] [facility] 2020-10-12 14:17:44 2020-10-12 15:03:31 Office Visit Tushar Lan [facility] ST[employer]LE SHEAR OPERATOR [facility] [[email or web address]] 1.2.840.114 350.1.13.10 4.2.7.2.686 [id number] 107 [id number] [facility] 2020-10-12 14:30:00 2020-10-12 14:30:00 Outpatient R TUSHAR LAN [facility] [id number] [facility] 2020-09-28 08:30:00 2020-09-28 08:30:00 Outpatient R TUSHAR LAN [facility] [id number] [facility] 2020-09-28 00:00:00 2020-09-28 00:00:00 Telephone Ernesto Peacock [facility] STAPLE SHEAR OPERATOR [facility] & [facility] [[email or web address]] 1.2.840.114 350.1.13.10 4.2.7.2.686 [id number] [facility] 2020-09-25 00:00:00 2020-09-25 00:00:00 Telephone Tushar Lan [facility] STAPLE SHEAR OPERATOR [facility] & CH[facility] [[email or web address]] 1.2.840.114 350.1.13.10 4.2.7.2.686 [id number] [facility] 2020-09-24 14:14:05 2020-09-24 14:29:05 Office Visit Tushar Lan [facility] STAPLE SHEAR OPERATOR [facility] & [facility] [[email or web address]] 1.2.840.114 350.1.13.10 4.2.7.2.686 [id number] 107 [id number] [facility] 2020-09-24 14:15:00 2020-09-24 14:15:00 Outpatient R TUSHAR LAN [facility] [id number] [facility] 2020-09-08 16:00:00 2020-09-08 16:00:00 Outpatient ERNESTO STARKS [facility] [id number] [facility] 2020-08-18 13:04:51 2020-08-18 13:45:53 Routine Visit Tushar Lan [facility] STAPLE SHEAR OPERATOR [facility] [[email or web address]] 1.2.840.114 350.1.13.10 4.2.7.2.686 [id number] 107 [id number] [facility] 2020-08-18 13:15:00 2020-08-18 13:15:00 Outpatient TUSHAR COHN [facility] [id number] [facility] 2020-08-06 11:00:00 2020-08-06 11:00:00 Outpatient ERNESTO STARKS [facility] [id number] [facility] 2020-08-06 08:21:04 2020-08-06 09:08:19 Nurse Visit Visit, Ang-Rmchp Nurse Tushar Lan [facility] [[email or web address]] 1..840.114 350.1.13.10 4.2.7.2.686 [id number] 107 [id number] [facility] 2020-08-06 09:00:00 2020-08-06 09:00:00 Outpatient TUSHAR COHN [facility] [id number] [facility] 2020-08-04 00:00:00 2020-08-04 00:00:00 Telephone Ernesto Peacock [email or web address]] 1.2.840.114 350.1.13.10 4.2.7.2.686 [id number] 107 [id number] [facility] 2020-08-01 00:00:00 2020-08-01 00:00:00 Encounter 1.2.840.1 [id number] 3.104.2.7 .[id number] 1.2.840.114 350.1.13.10 4.2.7.2.696 [id number] [facility] 2020-07-26 14:30:00 2020-07-28 17:45:00 Hospital Encounter Rosio Breen Maxim Austin Felix [facility] 1.2.840.114 350.1.13.10 4.2.7.2.686 [id number] [facility] 2020-07-27 10:49:00 2020-07-27 16:19:00 Anesthesia Event Dylan Prieto [facility] 1.2.840.114 350.1.13.10 4.2.7.2.686 [id number] [facility] 2020-07-26 19:50:09 2020-07-26 19:50:09 Anesthesia Event TariqAngelica pryor [facility] 1.2.840.114 350.1.13.10 4.2.7.2.686 [id number] [id number] [facility] 2020-07-21 12:46:13 2020-07-21 13:17:55 Routine Visit Ernesto Peacock [facility] STAPLE SHEAR OPERATOR [facility] 1.2.840.114 350.1.13.10 4.2.7.2.686 [id number] 107 [id number] [facility] 2020-07-21 12:45:00 2020-07-21 12:45:00 Outpatient ERNESTO STARKS [facility] [id number] [facility] 2020-07-12 02:00:00 2020-07-12 03:20:00 Hospital Encounter Hetal Norris [facility] 1.2.840.114 350.1.13.10 4.2.7.2.686 [id number] [facility] 2020-07-07 10:39:36 2020-07-07 11:15:55 Routine Visit Ernesto Peacock [facility] STAPLE SHEAR OPERATOR [facility] [[email or web address]] 1..114 350.1.13.10 4.2.7.2.686 [id number] 107 [id number] [facility] 2020-07-07 10:45:00 2020-07-07 10:45:00 Outpatient ERNESTO STARKS [facility] [id number] [facility] 2020-06-26 00:00:00 2020-06-26 00:00:00 Telephone Tushar Lan [facility] STAPLE SHEAR OPERATOR [facility] [[email or web address]] 1..114 350.1.13.10 4.2.7.2.686 [id number] 107 [id number] [facility] 2020-06-26 00:00:00 2020-06-26 00:00:00 Patient Secure Msg Ernesto Peacock [facility] STAPLE SHEAR OPERATOR [facility] [[email or web address]] 1..114 350.1.13.10 4.2.7.2.686 [id number] 107 [id number] [facility] 2020-06-23 14:10:30 2020-06-23 14:38:56 Routine Visit Ernesto Peacock [facility] STAPLE SHEAR OPERATOR [facility] CH[facility] [[email or web address]] 1..114 350.1.13.10 4.2.7.2.686 [id number] 107 [id number] [facility] 2020-06-23 14:15:00 2020-06-23 14:15:00 Outpatient ERNESTO STARKS [facility] [id number] [facility] 2020-06-11 00:00:00 2020-06-11 00:00:00 Orders Only Doctor Unassigned, [place] [facility] 1..114 350.1.13.10 4.2.7.2.686 [id number] [id number] [facility] 2020-06-09 14:16:51 2020-06-09 14:55:17 Routine Visit Niki Ralph Emily N [facility] STAPLE SHEAR OPERATOR [facility] [[email or web address]] 1..840.114 350.1.13.10 4.2.7.2.686 [id number] 107 [id number] [facility] 2020-06-09 14:15:00 2020-06-09 14:15:00 Outpatient R ERNESTO PEACOCK [facility] [id number] [facility] 2020-06-02 00:00:00 2020-06-02 00:00:00 Orders Only Doctor Unassigned, [place] [facility] 1..840.114 350.1.13.10 4.2.7.2.686 [id number] [facility] 2020-06-01 00:00:00 2020-06-01 00:00:00 Refill Tushar Lan [facility] 1..840.114 350.1.13.10 4.2.7.2.686 [id number] 107 [id number] [facility] 2020-05-21 12:58:26 2020-05-21 13:13:26 Game Artist Visit Lab, Ang-Rmchp Tushar Lan [facility] STAPLE SHEAR OPERATOR [facility] [[email or web address]] 1.840.114 350.1.13.10 4.2.7.2.686 [id number] [facility] 2020-05-21 13:00:00 2020-05-21 13:00:00 Outpatient TUSHAR COHN [facility] [id number] [facility] 2020-05-19 12:45:26 2020-05-19 13:11:32 Routine Visit Ernesto Peacock [facility] STAPLE SHEAR OPERATOR [facility] [[email or web address]] 1.840.114 350.1.13.10 4.2.7.2.686 [id number] 107 [id number] [facility] 2020-05-19 12:45:00 2020-05-19 12:45:00 Outpatient ERNESTO STARKS [facility] [id number] [facility] 2020-05-19 00:00:00 2020-05-19 00:00:00 Patient Outreach Jeffery Dumont [facility] 1..840.114 350.1.13.10 4.2.7.2.686 [id number] [facility] 2020-04-23 15:54:18 2020-04-23 16:11:16 Routine Visit Ernesto Peacock [facility] STAPLE SHEAR OPERATOR [facility] [[email or web address]] 1..840.114 350.1.13.10 4.2.7.2.686 [id number] 107 [id number] [facility] 2020-04-23 16:00:00 2020-04-23 16:00:00 Outpatient R ERNESTO PEACOCK [facility] [id number] [facility] 2020-04-14 12:45:00 2020-04-14 12:45:00 Outpatient ERNESTO STARKS [facility] [id number] [facility] 2020-04-09 13:55:54 2020-04-09 14:54:41 Game Artist Visit Ultrasound, Radha Alvarado [facility] STAPLE SHEAR OPERATOR [facility] [[email or web address]] ..840.114 350.1.13.10 4.2.7.2.686 [id number] [facility] 2020-04-09 14:00:00 2020-04-09 14:00:00 Outpatient P [facility] [id number] [facility] 2020-04-07 00:00:00 2020-04-07 00:00:00 Telephone Ernesto Peacock [facility] STAPLE SHEAR OPERATOR [facility] [[email or web address]] 1.2840.114 350.1.13.10 4.2.7.2.686 [id number] 107 [id number] [facility] 2020-03-26 00:00:00 2020-03-26 00:00:00 Orders Only Doctor Unassigned, [place] [facility] 1.2840.114 350.1.13.10 4.2.7.2.686 [id number] [facility] 2020-03-17 12:49:30 2020-03-17 13:34:04 Routine Visit Ernesto Peacock [facility] STAPLE SHEAR OPERATOR [facility] [[email or web address]] 1.2840.114 350.1.13.10 4.2.7.2.686 [id number] 107 [id number] [facility] 2020-03-17 13:00:00 2020-03-17 13:00:00 Outpatient R ERNESTO PEACOCK [facility] [id number] [facility] 2020-02-25 00:00:00 2020-02-25 00:00:00 Telephone Ernesto Peacock [facility] STAPLE SHEAR OPERATOR [facility] [[email or web address]] 1.840.114 350.1.13.10 4.2.7.2.686 [id number] [facility] 2020-02-18 14:45:00 2020-02-18 14:45:00 Outpatient R ERNESTO PEACOCK [facility] [id number] [facility] 2020-02-18 14:09:04 2020-02-18 14:39:35 Routine Visit Ernesto Peacock [facility] STAPLE SHEAR OPERATOR [facility] [[email or web address]] 1.2840.114 350.1.13.10 4.2.7.2.686 [id number] 107 [id number] [facility] 2020-02-03 00:00:00 2020-02-03 00:00:00 Telephone Tushar Lan [facility] STAPLE SHEAR OPERATOR [facility] & [facility] 1.2.84.114 350.1.13.10 4.2.7.2.686 [id number] 107 [id number] [facility] 2020-02-03 00:00:00 2020-02-03 00:00:00 Refill Doctor Unassigned, [place] [facility] STAPLE SHEAR OPERATOR [facility] CHILD [facility] [[email or web address]] 1.84.114 350.1.13.10 4.2.7.2.686 [id number] 107 [id number] [facility] 2020-01-21 15:20:02 2020-01-21 16:02:58 Routine Visit Ernesto Peacock [facility] STAPLE SHEAR OPERATOR [facility] [[email or web address]] 1.84.114 350.1.13.10 4.2.7.2.686 [id number] 107 [id number] [facility] 2020-01-21 15:30:00 2020-01-21 15:30:00 Outpatient R ERNESTO PEACOCK [facility] [id number] [facility] 2020-01-18 00:00:00 2020-01-18 00:00:00 Refill Doctor Unassigned, [place] [facility] STAPLE SHEAR OPERATOR [facility] [[email or web address]] 1..114 350.1.13.10 4.2.7.2.686 [id number] 107 [id number] [facility] 2020-01-09 14:52:31 2020-01-09 15:17:04 Game Artist Visit Ultrasound, Shereen Sheridan [facility] STAPLE SHEAR OPERATOR [facility] [[email or web address]] 1.84.114 350.1.13.10 4.2.7.2.686 [id number] [facility] 2020-01-09 14:45:00 2020-01-09 14:45:00 Outpatient P [facility] [id number] [facility] 2020-01-09 00:00:00 2020-01-09 00:00:00 Abstract Ernesto Peacock [facility] STAPLE SHEAR OPERATOR [facility] [[email or web address]] 1.2840.114 350.1.13.10 4.2.7.2.686 [id number] 107 [id number] [facility] 2019-12-27 00:00:00 2019-12-27 00:00:00 Telephone Tushar Lan [facility] STAPLE SHEAR OPERATOR [facility] [[email or web address]] 1.2840.114 350.1.13.10 4.2.7.2.686 [id number] 107 [id number] [facility] 2019-12-26 13:39:00 2019-12-26 15:06:17 Initial Visit Ernesto Peacock [facility] STAPLE SHEAR OPERATOR [facility] [[email or web address]] 1.0.114 350.1.13.10 4.2.7.2.686 [id number] 107 [id number] [facility] 2019-12-26 13:45:00 2019-12-26 13:45:00 Outpatient R ERNESTO PEACOCK [facility] [id number] [facility] 2019-12-26 00:00:00 2019-12-26 00:00:00 Orders Only Doctor Unassigned, [place] [facility] 1..114 350.1.13.10 4.2.7.2.686 [id number] [id number] [facility] 2019-12-09 13:15:00 2019-12-09 13:15:00 Outpatient R TUSHAR LAN [facility] [id number] [facility] 2019-10-28 00:00:00 2019-10-28 00:00:00 Telephone Tushar Lan [facility] STAPLE SHEAR OPERATOR [facility] [[email or web address]] 1.20.114 350.1.13.10 4.2.7.2.686 [id number] 107 [id number] 2019-10-28 00:00:00 2019-10-28 00:00:00 Telephone Tushar Lan [facility] STAPLE SHEAR OPERATOR [facility] [[email or web address]] 1.2840.114 350.1.13.10 4.2.7.2.686 [id number] 107 [id number] [facility] 2019-10-09 08:16:20 2019-10-09 08:48:41 Office Visit Tushar Lan [facility] STAPLE SHEAR OPERATOR [facility] [[email or web address]] 1.2.840.114 350.1.13.10 4.2.7.2.686 [id number] 107 [id number] [facility] 2019-10-09 08:16:20 2019-10-09 08:48:41 Office Visit ReidjohnathanTushar [facility] STAPLE SHEAR OPERATOR [facility] [[email or web address]] 1.2840.114 350.1.13.10 4.2.7.2.686 [id number] 107 [id number] 2019-10-09 08:15:00 2019-10-09 08:15:00 Outpatient R TUSHAR LAN [facility] [id number] [facility] 2019-10-07 10:30:00 2019-10-07 10:30:00 Outpatient R REIDJOHNATHANTUSHAR [facility] [id number] [facility] 2019-09-27 00:00:00 2019-09-27 00:00:00 Telephone Tushar Lan [facility] STAPLE SHEAR OPERATOR [facility] [[email or web address]] 1.2840.114 350.1.13.10 4.2.7.2.686 [id number] 107 [id number] [facility] 2019-09-25 00:00:00 2019-09-25 00:00:00 Refill ReidjohnathanTushar [facility] STAPLE SHEAR OPERATOR [email or web address]] 1.2.840.114 350.1.13.10 4.2.7.2.686 [id number] 107 [id number] [facility] 2019-08-19 00:00:00 2019-08-19 00:00:00 Telephone Riky Tushar Ashely [facility] STAPLE SHEAR OPERATOR [facility] [[email or web address]] 1.2.840.114 350.1.13.10 4.2.7.2.686 [id number] 107 [id number] [facility] 2019-08-16 00:00:00 2019-08-16 00:00:00 Case Management Selam Alves [facility] STAPLE SHEAR OPERATOR [facility] & [facility] 1.840.114 350.1.13.10 4.2.7.2.686 [id number] 111 [id number] [facility] 2019-08-15 10:43:37 2019-08-15 11:14:30 Office Visit Provider, Tk-Selam Ac [facility] STAPLE SHEAR OPERATOR [facility] CH[facility] [[email or web address]] 1..114 350.1.13.10 4.2.7.2.686 [id number] 107 [id number] [facility] 2019-08-15 10:45:00 2019-08-15 10:45:00 Outpatient R SELAM ALVES [facility] [id number] [facility] 2019-07-23 00:00:00 2019-07-23 00:00:00 Telephone Tushar Lan [facility] [[email or web address] 1..114 350.1.13.10 4.2.7.2.686 [id number] 107 [id number] [facility] 2019-07-19 00:00:00 2019-07-19 00:00:00 Orders Only Doctor Unassigned, [place] [facility] 1.0.114 350.1.13.10 4.2.7.2.686 [id number] [id number] [facility] 2019-07-08 07:39:54 2019-07-08 09:35:12 Telemedici ne Visit Tushar Lan [facility] STAPLE SHEAR OPERATOR [facility] [[email or web address]] 1.840.114 350.1.13.10 4.2.7.2.686 [id number] 107 [id number] [facility] 2019-07-08 09:30:00 2019-07-08 09:30:00 Outpatient R TUSHAR LAN [facility] [id number] [facility] 2019-07-05 00:00:00 2019-07-05 00:00:00 Telephone Tushar Lan [facility] STAPLE SHEAR OPERATOR [facility] [[email or web address]] 1.2.840.114 350.1.13.10 4.2.7.2.686 [id number] 107 [id number] [facility] 2019-04-29 00:00:00 2019-04-29 00:00:00 Telephone Tushar Lan [facility] STAPLE SHEAR OPERATOR [facility] 1.2.840.114 350.1.13.10 4.2.7.2.686 [id number] 107 [id number] [facility] 2019-04-01 00:00:00 2019-04-01 00:00:00 Telephone Tushar Lan [facility] STAPLE SHEAR OPERATOR [facility] [[email or web address]] 1.2.840.114 350.1.13.10 4.2.7.2.686 [id number] 107 [id number] [facility] 2019 10:39:31 2019 11:16:49 Office Visit Tushar Lan [facility] STAPLE SHEAR OPERATOR [facility] 1.2.840.114 350.1.13.10 4.2.7.2.686 [id number] 107 [id number] [facility] 2019 00:00:00 2019 00:00:00 Orders Only Doctor Unassigned, [place] [facility] 1.2.840.114 350.1.13.10 4.2.7.2.686 [id number] [id number] [facility] 2018-12-20 09:37:41 2018-12-20 10:39:11 Office Visit Tushar Lan 1.2.840.1 [id number] 3.104.2.7 .[id number] [id number] [facility] 2018-12-20 00:00:00 2018-12-20 00:00:00 Telephone Tushar Lan 1.2840.1 [id number] 3.104.2.7 .[id number] [facility] 2018-12-20 00:00:00 2018-12-20 00:00:00 Orders Only Doctor Unassigned, [place] 1.840.1 96345.1.1 3.104.2.7 .3.172439 .8 [id number] [facility] Results Test Description Test Time Test Comments Results Result Co mments Source [id number] 22:45:00* Test Item Value Reference Range Interpretation Comme nts POCT PREG (test code = 1605) Negative On board controls acceptable with C Line (test code = 3574) Yes POCT PREG LOT # (test code = 3575) POCT PREG TEST DATE ( test code = 3576) [facility] [id number] 11:42:42* Test Item Value Reference Range Interpretation Comme nts WBC (test code = 6690-2) 10.01 See_Comment [Automated messa ge] The system which generated this result transmitted reference range: 4.30 - 11.10 10*3/?L. The reference range was not used to interpret this result as normal/abnormal. RBC (test code = 789-8) 3.75 See_Comment L [Automated messa ge] The system which generated this result transmitted reference range: 3.93 - 5.25 10*6/?L. The reference range was not used to interpret this result as normal/abnormal. HGB (test code = 718-7) 8.3 g/dL 11.6-15.0 L HCT (test code = 4544-3) 26.8 % 35.7-45.2 L MCV (test code = 787-2) 71.5 fL 80.6-95.5 L MCH (test code = 785-6) 22.1 pg 25.9-32.8 L MCHC (test code = 786-4) 31.0 g/dL 31.6-35.1 L RDW-SD (test code = 12656-6) 38.7 fL 39.0-49.9 L RDW-CV (test code = 788-0) 15.1 % 12.0-15.5 PLT (test code = 777-3) 338 See_Comment [Automated Weixinhaia ge] The system which generated this result transmitted reference range: 166 - 358 10*3/?L. The reference range was not used to interpret this result as normal/abnormal. MPV (test code = 53609-9) 10.1 fL 9.5-12.9 NRBC/100 WBC (test code = 2306338747) 0.0 See_Comment [Automated Mapado ssage] The system which generated this result transmitted reference range: 0.0 - 10.0 /100 WBCs. The reference range was not used to interpret this result as normal/abnormal. NRBC x10^3 (test code = 7309833943) See_Comment [Automated Weixinhaia ge] The system which generated this result transmitted reference range: 10*3/?L. The reference range was not used to interpret this result as normal/abnormal. GRAN MAT (NEUT) % (test code = 770-8) 72.3 % IMM GRAN % (test code = 1122973248) 0.90 % LYMPH % (test code = 736-9) 18.3 % MONO % (test code = 5905-5) 5.8 % EOS % (test code = 713-8) 2.5 % BASO % (test code = 706-2) 0.2 % GRAN MAT x10^3(ANC) (test code = 5109360352) 7.24 10*3/uL 1.88-7.09 H IMM GRAN x10^3 (test code = 2695894021) 0.09 10*3/uL 0.00-0.06 H LYMPH x10^3 (test code = 731-0) 1.83 10*3/uL 1.32-3.29 MONO x10^3 (test code = 742-7) 0.58 10*3/uL 0.33-0.92 EOS x10^3 (test code = 711-2) 0.25 10*3/uL 0.03-0.39 BASO x10^3 (test code = 704-7) 0.01-0.07 Lab Interpretation (test code = 50786-4) [facility]39:13* Test Item Value Reference Range Interpretation Comme nts NA (test code = 6057204335) 138 mmol/L 135-145 K (test code = 4213017415) 3.1 mmol/L 3.5-5.0 L CL (test code = 0119078286) 109 mmol/L 98-108 H CO2 TOTAL (test code = 2813841874) 21 mmol/L 23-31 L AGAP (test code = 5467622555) 8 2-16 BUN (test code = 8655624865) 12 mg/dL 7-23 GLUCOSE (test code = 7214443546) 100 mg/dL 70-110 CREATININE (test code = 2487776340) 0.44 mg/dL 0.50-1.04 L TOTAL BILI (test code = 9847709048) 1.1 mg/dL 0.1-1.1 CALCIUM (test code = 5575247438) 8.1 mg/dL 8.6-10.6 L T PROTEIN (test code = 0100789061) 6.1 g/dL 6.3-8.2 L ALBUMIN (test code = 7093811938) 2.9 g/dL 3.5-5.0 L ALK PHOS (test code = 7821250287) 101 U/L 34-122 ALTv (test code = 1742-6) 11 U/L 5-35 AST(SGOT) (test code = 1744971488) 19 U/L 13-40 eGFR (test code = 2154946890) 182.3 mL/min/1.73m2 ARGENIS (test code = ARGENIS) [...] imaging tests). Lab Interpretation (test code = 28868-9) Abnormal [facility] WITH [id number] 03:29:32* Test Item Value Reference Range Interpretation Comme nts WBC (test code = 6690-2) 9.87 See_Comment [Automated TUNJI] The system which generated this result transmitted reference range: 4.30 - 11.10 10*3/?L. The reference range was not used to interpret this result as normal/abnormal. RBC (test code = 789-8) 3.57 See_Comment L [Automated TUNJI] The system which generated this result transmitted [...] 31.8 g/dL 31.6-35.1 RDW-SD (test code = 86911-9) 38.3 fL 39.0-49.9 L RDW-CV (test code = 788-0) 15.1 % 12.0-15.5 PLT (test code = 777-3) 279 See_Comment [Automated [employer] ge] The system which generated this result transmitted reference range: 166 - 358 10*3/?L. The reference range was not used to interpret this result as normal/abnormal. MPV (test code = 78923-1) 10.3 fL 9.5-12.9 NRBC/100 WBC (test code = 4375375538) 0.0 See_Comment [Automated [employer] ssage] The system which generated this result transmitted reference range: 0.0 - 10.0 /100 WBCs. The reference range was not used to interpret this result as normal/abnormal. NRBC x10^3 (test code = 0908910798) See_Comment [Automated [employer] ge] The system which generated this result transmitted reference range: 10*3/?L. The reference range was not used to interpret this result as normal/abnormal. GRAN MAT (NEUT) % (test code = 770-8) 80.7 % IMM GRAN % (test code = 8745716311) 0.70 % LYMPH % (test code = 736-9) 11.3 % MONO % (test code = 5905-5) 4.9 % EOS % (test code = 713-8) 2.2 % BASO % (test code = 706-2) 0.2 % GRAN MAT x10^3(ANC) (test code = 0961556135) 7.96 10*3/uL 1.88-7.09 H IMM GRAN x10^3 (test code = 5714542234) 0.07 10*3/uL 0.00-0.06 H LYMPH x10^3 (test code = 731-0) 1.12 10*3/uL 1.32-3.29 L MONO x10^3 (test code = 742-7) 0.48 10*3/uL 0.33-0.92 EOS x10^3 (test code = 711-2) 0.22 10*3/uL 0.03-0.39 BASO x10^3 (test code = 704-7) 0.01-0.07 Lab Interpretation (test code = 67752-7) [facility] I[facility]E [id number] 00:24:07* Test Item Value Reference Range Interpretation Comme nts RHIG CANDIDATE? (test code = 5188) No- see comment Patient is not a candidate for RhIg- Patient is Rh Positive.Performed at [facility] Laboratory Services - [facility] Blood [address] [place] [id number] Free: [phone] No. [id number] [facility] with [id number] 11:22:51* Test Item Value Reference Range Interpretation [...] g/dL 31.6-35.1 L RDW-SD (test code = 46711-9) 37.8 fL 39.0-49.9 L RDW-CV (test code = 788-0) 14.6 % 12.0-15.5 PLT (test code = 777-3) 216 See_Comment [Automated message] The system which generated this result transmitted reference range: 166 - 358 10*3/?L. The reference range was not used to interpret this result as normal/abnormal. MPV (test code = 82573-8) 10.8 fL 9.5-12.9 NRBC/100 WBC (test code = 2631224720) 0.0 See_Comment [Automated message] The system which generated this result transmitted reference range: 0.0 - 10.0 /100 WBCs. The reference range was not used to interpret this result as normal/abnormal. NRBC x10^3 (test code = 2451707269) See_Comment [Automated message] The system which generated this result transmitted reference range: 10*3/?L. The reference range was not used to interpret this result as normal/abnormal. SEG % (test code = 94668-2) 83 % 33-76 H BAND % (test code = 19896-9) 9 % 0-1 H LYMPH % (test code = 25510-1) 8 % 14-54 L ANC (test code = 753-4) 20.01 10*3/uL 1.88-7.09 H Lab Interpretation (test code = 93708-7) Abnormal [facility] with [id number] 11:22:51* Test Item Value Reference Range Interpretation [...] g/dL 31.6-35.1 L RDW-SD (test code = 07632-3) 37.8 fL 39.0-49.9 L RDW-CV (test code = 788-0) 14.6 % 12.0-15.5 PLT (test code = 777-3) 216 See_Comment [Automated message] The system which generated this result transmitted reference range: 166 - 358 10*3/?L. The reference range was not used to interpret this result as normal/abnormal. MPV (test code = 27312-7) 10.8 fL 9.5-12.9 NRBC/100 WBC (test code = 6117394609) 0.0 See_Comment [Automated message] The system which generated this result transmitted reference range: 0.0 - 10.0 /100 WBCs. The reference range was not used to interpret this result as normal/abnormal. NRBC x10^3 (test code = 4567446477) See_Comment [Automated message] The system which generated this result transmitted reference range: 10*3/?L. The reference range was not used to interpret this result as normal/abnormal. SEG % (test code = 85695-8) 83 % 33-76 H BAND % (test code = 52997-2) 9 % 0-1 H LYMPH % (test code = 52640-1) 8 % 14-54 L ANC (test code = 753-4) 20.01 10*3/uL 1.88-7.09 H Lab Interpretation (test code = 40175-7) Abnormal [facility] URINALYSIS W SPECIFIC [id number] 19:23:00* Test Item Value Reference Range Interpretation [...] U APPEAR (test code = 3267) . [facility] URINALYSIS W SPECIFIC [id number] 19:48:00* Test Item Value Reference Range Interpretation [...] U APPEAR (test code = 3267) . [facility] URINALYSIS W SPECIFIC [id number] 18:04:00* Test Item Value Reference Range Interpretation [...] U APPEAR (test code = 3267) . [facility] with [id number] 04:55:42* Test Item Value Reference Range Interpretation Comme nts WBC (test code = 6690-2) 12.52 See_Comment H [Automated messa ge] The system which generated this result transmitted reference range: 4.30 - 11.10 10*3/?L. The reference range was not used to interpret this result as normal/abnormal. RBC (test code = 789-8) 4.28 See_Comment [Automated messa ge] The system which [...] 32.4 g/dL 31.6-35.1 RDW-SD (test code = 68094-1) 39.8 fL 39.0-49.9 RDW-CV (test code = 788-0) 13.8 % 12.0-15.5 PLT (test code = 777-3) 287 See_Comment [Automated messa ge] The system which generated this result transmitted reference range: 166 - 358 10*3/?L. The reference range was not used to interpret this result as normal/abnormal. MPV (test code = 06925-4) 11.0 fL 9.5-12.9 NRBC/100 WBC (test code = 1798743814) 0.0 See_Comment [Automated Mapado ssage] The system which generated this result transmitted reference range: 0.0 - 10.0 /100 WBCs. The reference range was not used to interpret this result as normal/abnormal. NRBC x10^3 (test code = 8733751490) See_Comment [Automated messa ge] The system which generated this result transmitted reference range: 10*3/?L. The reference range was not used to interpret this result as normal/abnormal. GRAN MAT (NEUT) % (test code = 770-8) 68.4 % IMM GRAN % (test code = 3665600370) 1.10 % LYMPH % (test code = 736-9) 19.6 % MONO % (test code = 5905-5) 6.5 % EOS % (test code = 713-8) 3.8 % BASO % (test code = 706-2) 0.6 % GRAN MAT x10^3(ANC) (test code = 9792820415) 8.56 10*3/uL 1.88-7.09 H IMM GRAN x10^3 (test code = 9859256951) 0.14 10*3/uL 0.00-0.06 H LYMPH x10^3 (test code = 731-0) 2.46 10*3/uL 1.32-3.29 MONO x10^3 (test code = 742-7) 0.82 10*3/uL 0.33-0.92 EOS x10^3 (test code = 711-2) 0.47 10*3/uL 0.03-0.39 H BASO x10^3 (test code = 704-7) 0.07 10*3/uL 0.01-0.07 Lab Interpretation (test code = 88264-8) [facility] [id number] 04:31:20* Test Item Value Reference Range Interpretation Comme nts GLUC 1 HR (test code = 5605863955) 72 mg/dL 120-170 L Lab Interpretation (test cod e = 52716-8) [facility]CIFIC [id number] 20:18:00* Test Item Value Reference Range Interpretation [...] U APPEAR (test code = 3267) . [facility] URINALYSIS W SPECIFIC [id number] 20:18:00* Test Item Value Reference Range Interpretation [...] U APPEAR (test code = 3267) . [facility] URINALYSIS W SPECIFIC [id number] 17:24:00* Test Item Value Reference Range Interpretation [...] U APPEAR (test code = 3267) . [facility] URINALYSIS W SPECIFIC [id number] 16:03:00* Test Item Value Reference Range Interpretation [...] U APPEAR (test code = 3267) . [facility] URINALYSIS W SPECIFIC [id number] 17:19:00* Test Item Value Reference Range Interpretation [...] U APPEAR (test code = 3267) . [facility] URINALYSIS W SPECIFIC [id number] 17:19:00* Test Item Value Reference Range Interpretation [...] U APPEAR (test code = 3267) . [facility] URINALYSIS W SPECIFIC [id number] 16:39:00* Test Item Value Reference Range Interpretation [...] POCT U APPEAR (test code = 3267) [facility] URINALYSIS W SPECIFIC [id number] 19:37:00* Test Item Value Reference Range Interpretation [...] U APPEAR (test code = 3267) . [facility] URINALYSIS W SPECIFIC [id number] 15:33:00* Test Item Value Reference Range Interpretation [...] U APPEAR (test code = 3267) . [facility] [id number] 14:34:00* Test Item Value Reference Range Interpretation Comme nts POCT PREG (test code = 1605) Positive On board controls acceptable with C Line (test code = 3574) Yes POCT PREG LOT # (test code = 3575) POCT PREG TEST DATE ( test code = 357) [facility] URINALYSIS W/O SPECIFIC [id number] 14:34:00* Test Item Value Reference Range Interpretation [...] = 3257) negative Negative - Negati ve [facility] [id number] 14:34:00* Test Item Value Reference Range Interpretation Comme nts POCT PREG (test code = 1605) Positive On board controls acceptable with C Line (test code = 3574) Yes POCT PREG LOT # (test code = 3575) POCT PREG TEST DATE ( test code = 3576) [facility] URINALYSIS W/O SPECIFIC [id number] 14:34:00* Test Item Value Reference Range Interpretation [...] = 3257) negative Negative - Negati ve [facility] [id number] 14:31:00* Test Item Value Reference Range Interpretation Comme nts POCT PREG (test code = 1605) Positive On board controls acceptable with C Line (test code = 3574) Yes POCT PREG LOT # (test code = 3575) POCT PREG TEST DATE ( test code = 3576) [facility] [id number] 18:26:00* Test Item Value Reference Range Interpretation Comme nts POCT PREG (test code = 1605) Negative On board controls acceptable with C Line (test code = 3574) Yes POCT PREG LOT # (test code = 3575) POCT PREG TEST DATE (test code = 3576) ARGENIS (test code = ARGENIS) accurate developme nt and interpretation of all internal controls [facility]
[2023-03-12 15:17] LABS: Specific Gravity > 1.030 (1.005-1.030)
--- NOTE | 2023-03-12 15:32 | EDPHYS ---
Physician Documentation [facility] Name: Sil Gaytan Age: 22 yrs Sex: Female : 2000 Arrival Date: 03/12/2023 Time: 14:14 Bed 15 Private MD: ED Physician David Shaw HPI: 03/12 15:28 This 22 yrs old Female presents to ER via Ambulatory with complaints of Weakness, snw Unknown . 15:28 Onset: The symptoms/episode began/occurred acutely. snw Historical: - Allergies: 14:44 Codeine; cm10 14:44 PENICILLINS; cm10 14:44 Prednisone; cm10 14:44 Vancomycin; cm10 - PMHx: 14:44 Asthma; Hypertensive disorder; cm10 - PSHx: 14:44 ; cm10 - Immunization history:: Adult Immunizations up to date. - Social history:: Smoking status: Patient denies any tobacco usage or history of. Patient uses street drugs, marijuana. ROS: 15:28 Constitutional: Negative for fever, chills, and weight loss, Eyes: Negative for injury, snw pain, redness, and discharge, ENT: Negative for injury, pain, and discharge, Neck: Negative for injury, pain, and swelling, Cardiovascular: Negative for chest pain, palpitations, and edema, Respiratory: Negative for shortness of breath, cough, wheezing, and pleuritic chest pain, Abdomen/GI: Negative for abdominal pain, nausea, vomiting, diarrhea, and constipation, Back: Negative for injury and pain, MS/Extremity: Negative for injury and deformity, Skin: Negative for injury, rash, and discoloration, Neuro: Negative for headache, weakness, numbness, tingling, and seizure, Psych: Negative for depression, anxiety, suicide ideation, homicidal ideation, and hallucinations, 15:28 : Positive for 6 tests with varying results, Exam: 15:27 Constitutional: This is a well developed, well nourished patient who is awake, alert, snw and in no acute distress. Head/Face: Normocephalic, atraumatic. Eyes: Pupils equal round and reactive to light, extra-ocular motions intact. Lids and lashes normal. Conjunctiva and sclera are non-icteric and not injected. Cornea within normal limits. Periorbital areas with no swelling, redness, or edema. Cardiovascular: Regular rate and rhythm with a normal S1 and S2. No gallops, murmurs, or rubs. Normal PMI, no JVD. No pulse deficits. Respiratory: Lungs have equal breath sounds bilaterally, clear to auscultation and percussion. No rales, rhonchi or wheezes noted. No increased work of breathing, no retractions or nasal flaring. Abdomen/GI: Soft, non-tender, with normal bowel sounds. No distension or tympany. No guarding or rebound. No evidence of tenderness throughout. Back: No spinal tenderness. No costovertebral tenderness. Full range of motion. Skin: Warm, dry with normal turgor. Normal color with no rashes, no lesions, and no evidence of cellulitis. MS/ Extremity: Pulses equal, no cyanosis. Neurovascular intact. Full, normal range of motion. Neuro: Awake and alert, GCS 15, oriented to person, place, time, and situation. Cranial nerves II-XII grossly intact. Motor strength 5/5 in all extremities. Sensory grossly intact. Cerebellar exam normal. Normal gait. Psych: Awake, alert, with orientation to person, place and time. Behavior, mood, and affect are within normal limits. Vital Signs: 14:42 BP 138 / 82; Pulse 106; Resp 18; Temp 98.8(IR); Pulse Ox 100% ; Weight 79.83 kg; Height cm10 5 ft. 7 in. ; Pain 0/10; 14:42 Body Mass Index 27.57 (79.83 kg, 170.18 cm) cm10 14:42 Pain Scale: Adult cm10 MDM: 14:52 Patient medically screened. snw 15:29 Differential diagnosis: , hormone changes. Data reviewed: vital signs, nurses snw notes. Counseling: I had a detailed discussion with the patient and/or guardian regarding the historical points, exam findings, and any diagnostic results supporting the discharge/admit diagnosis, lab results, to return to the emergency department if symptoms worsen or persist or if there are any questions or concerns that arise at home. Special discussion: Based on the history and exam findings, there is no indication for further emergent testing or inpatient evaluation. I discussed with the patient/guardian the need to see the primary care provider for further evaluation of the symptoms. ED course: Pt would like to know if she is . 15:30 ED course: test negative. snw 03/12 15:02 Order name: PREGU; Complete Time: 15:30 snw Administered Medications: No medications were administered Disposition Summary: 03/12/23 15:31 Discharge Ordered Notes: Location: Home snw Condition: Stable snw Diagnosis - Dehydration snw Followup: snw - With: Emergency Department - When: As needed - Reason: Worsening of condition Followup: snw - With: Private Physician - When: 2 - 3 days - Reason: Recheck today's complaints, Continuance of care, Re-evaluation by your physician Discharge Instructions: - Discharge Summary Sheet snw - Dehydration, Adult snw - Rehydration, Adult snw Forms: - Medication Reconciliation Form snw - Thank You Letter snw - Antibiotic Education snw - Prescription Opioid Use snw - Patient Portal Instructions snw - Leadership Thank You Letter snw Signatures: Dispatcher [employer] Ibeth Calixto FNP-C [employer]-[place] Anu Nieves, RN RN cm10
--- NOTE | 2023-03-12 15:32 | ER ---
Nurse's Notes [facility] Name: Sil Gaytan Age: 22 yrs Sex: Female : 2000 Arrival Date: 03/12/2023 Time: 14:14 Bed 15 Private MD: Diagnosis: Dehydration Presentation: 03/12 14:42 Chief complaint: Patient states: "I took 6 tests at home and I had 3 positive cm10 and 3 negative. the positive ones had a faint positive." Pt reports that she has been having weird cravings and is nauseous. Coronavirus screen: Vaccine status: Patient reports being unvaccinated. Client denies travel out of the [place] in the last 14 days. Ebola Screen: Patient denies travel to an Ebola-affected area in the 21 days before illness onset. No symptoms or risks identified at this time. Initial Sepsis Screen: Does the patient meet any 2 criteria? No. Patient's initial sepsis screen is negative. Does the patient have a suspected source of infection? No. Patient's initial sepsis screen is negative. Risk Assessment: Do you want to hurt yourself or someone else? Patient reports no desire to harm self or others. Onset of symptoms was March 12, 2023. 14:42 Method Of Arrival: Ambulatory cm10 14:42 Acuity: DELMAR 4 cm10 Triage Assessment: 14:45 General: Appears in no apparent distress. Behavior is appropriate for age. Pain: Denies bp pain. Historical: - Allergies: 14:44 Codeine; cm10 14:44 PENICILLINS; cm10 14:44 Prednisone; cm10 14:44 Vancomycin; cm10 - PMHx: 14:44 Asthma; Hypertensive disorder; cm10 - PSHx: 14:44 ; cm10 - Immunization history:: Adult Immunizations up to date. - Social history:: Smoking status: Patient denies any tobacco usage or history of. Patient uses street drugs, marijuana. Screenin:45 [facility] ED Fall Risk Assessment (Adult) History of falling in the last 3 months, bp including since admission No falls in past 3 months (0 pts). Abuse screen: Denies threats or abuse. Denies injuries from another. Nutritional screening: No deficits noted. Tuberculosis screening: No symptoms or risk factors identified. Assessment: 14:45 General: SEE TRIAGE NOTE. : Denies vaginal bleeding. bp Vital Signs: 14:42 BP 138 / 82; Pulse 106; Resp 18; Temp 98.8(IR); Pulse Ox 100% ; Weight 79.83 kg; Height cm10 5 ft. 7 in. ; Pain 0/10; 14:42 Body Mass Index 27.57 (79.83 kg, 170.18 cm) cm10 14:42 Pain Scale: Adult cm10 ED Course: 14:20 Patient arrived in ED. ts1 14:32 Ibeth Nobles FNP-C [facility]. snw 14:32 David Shaw MD is Attending Physician. snw 14:44 Triage completed. cm10 14:45 Aldair James, RN is Primary Nurse. bp 14:45 Arm band placed on Patient placed in an exam room, on a stretcher. cm10 14:45 Patient has correct armband on for positive identification. bp 16:15 No provider procedures requiring assistance completed. Patient did not have IV access bp during this emergency room visit. Administered Medications: No medications were administered Medication: 14:45 VIS not applicable for this client. bp Outcome: 15:31 Discharge ordered by MD. snw 16:15 Discharged to home ambulatory, bp 16:15 Condition: stable 16:15 Discharge instructions given to patient, Instructed on discharge instructions, follow up and referral plans. Demonstrated understanding of instructions, follow-up care, 16:16 Patient left the ED. bp Signatures: Ibeth Nobles FNP-C [employer] WORK[employer] Aldair James, RN RN Romana Souza PAS PAS ts1 Anu Nieves RN RN cm10
[2023-03-12 16:39] VITALS: BP 138/82; TEMP 98.8; O2SAT 100
== END ==
LOC: ER 14:14
DX: E86.0 Dehydration (principal)
CPT/HCPCS: 81025; 99282

== ENCOUNTER → 2023-05-08 | Emergency (ER) | payer OTHER, SELFPAY ==
[~2023-05-08] MED LIST: ONDANSETRON 4 MG (ODT) TAB ONE
--- OUTSIDE RECORDS SUMMARY | 2023-05-08 06:11 | XMS REPORT | Continuity of Care Document ---
Author Name Unknown Address [address] [facility] [address] [place] [address] [facility] thconnect Address [address] [facility] [address] [place] [address] Care Team Providers Care Religious Education Teacher Name Role Phone Tushar Villarreal Primary Care Physicia n KASEY BLANCO Attending Clinician KASEY Petty Attending Clinician Neftali eMmbreno Attending Clinician Unavailable Tushar Villarreal Attending Clinician + TUSHAR LAN Attending Clinician Unavail able Doctor Unassigned, Peculiar Attending Clinician MOSHE Oro Attending Clinician Unavailable Visit, Neftali Nurse Attending Clinician HETAL Geiger Attending Clinician Unavailable Adum MD, Hetal L Attending Clinician [phone] Patt Nova RN Attending Clinician UnavailAUSTIN Emery Attending Clinician Unavailable Maxim ANDRES, Austin Washington Attending Clinician [phone] Antonette Luque CNM Attending Clinician [phone] ANTONETTE LUQUE Attending Clinician Unavaila ble Risk, Cey-Xwehr-Fb/High Attending Clinician Unav ailable Shereen Sky MD Attending Clinician [phone] SHEREEN SKY Attending Clinician Unavailable Ultrasound, Ang-Mfm Attending Clinician Unavaila ble EDWIN CAGE Attending Clinician Unavailable Fauzia Edwin JASON Attending Clinician [phone] David Cooper DO Attending Clinician [phone] SARA SNYDER Attending Clinician Unavaila SARA Kauffman Attending Clinician Unavaila ble Provider, Ang-chp Temp Attending Clinician Tika yazmin ACEVEDOP, Roshunda R Attending Clinician + [phone] MARTÍN RALPHNDA R Attending Clinician Unavailab JAM Neville Attending Clinician Unavailable CLINTON CRUMP Attending Clinician Unavailable Sarkis QUINONEZ, Ernesto Rosario Attending Clinician [phone] ERNESTO PEACOCK Attending Clinician UnavailHarvinder QUINONEZ, Rosio Attending Clinician [phone] Dylan Prieto MD Attending Clinician [phone] Maria PALACIOS, CASE PICKER, R Attending Clinician [phone] Jeffery Dumont DO Attending Clinician [phone] Radha Charlton MD Attending Clinician [phone] Selam Fields Attending Clinician [phone] SELAM ALVES Attending Clinician Unavailab KASEY Tolentino Admitting Clinician AUSTIN Hughes Admitting Clinician Unavailable HETAL NORRIS Admitting Clinician Unavailable Hetal Norris MD Admitting Clinician Austin Arzola MD Admitting Clinician SARA SNYDER Admitting Clinician Unavaila ble Payers Payer Name Policy Type Policy Number Effective Date Expirati on Date Source [employer] [id number] 2021 00:00:00 Problems Condition Name Condition Details Condition Category Status Onset Date Resolution Date Last Treatment Date Treating Clinician Comments Source Well woman exam Well woman exam Disease Active 7-12 00:00: 00 [facility] Routine follow-up Routine follow-up Disease Active 0 6-16 00:00: 00 [facility] induced hypertensi on, antepartum induced hypertensi on, antepartum Disease Active 0 6-02 00:00: 00 [facility] state state Disease Active 6-02 00:00: 00 [facility] Obesity (BMI 30-39.9) Obesity (BMI 30-39.9) Disease Active 5-28 00:00: 00 [facility] Postoperat chris fever Postoperat chris fever Disease Active 5-28 00:00: 00 [facility] premature rupture of membranes (PPROM) with onset of labor within 24 hours of rupture in third trimester, antepartum premature rupture of membranes (PPROM) with onset of labor within 24 hours of rupture in third trimester, antepartum Disease Active 0 5-25 00:00: 00 [facility] 36 weeks gestation of 36 weeks gestation of Disease Active 0 5-25 00:00: 00 [facility] Liveborn infant, of [place] , born in hospital by delivery Liveborn infant, of [place] , born in hospital by delivery Disease Active 0 5-25 00:00: 00 [facility] UTI in UTI in Disease Active 5-24 00:00: 00 Overview: Formattin g of this note might be different from the original. Per meds sent and patient notified [facility] Supervisio n of high-risk Supervisio n of high-risk Disease Active 3-02 00:00: 00 [facility] Multiparit y Multiparit y Disease Active 3-02 00:00: 00 [facility] History of pre-eclamp raymond in prior , currently History of pre-eclamp raymond in prior , currently Disease Active 2021-02 0-27 00:00: 00 [facility] related nausea, antepartum related nausea, antepartum Disease Active 2021-02 0-27 00:00: 00 [facility] Declines flu vaccine Declines flu vaccine Disease Active 2021-02 0-27 00:00: 00 [facility] History of anxiety and depression History of anxiety and depression Disease Active 2021-02 0-27 00:00: 00 [facility] Missed menses Missed menses Disease Active 2021-02 0-13 00:00: 00 [facility] History of delivery, currently History of delivery, currently Disease Active 2021-02 0-13 00:00: 00 [facility] Other general counseling and advice for contracept chris management Other general counseling and advice for contracept chris management Disease Active 8-02 00:00: 00 [facility] Elevated blood pressure reading without diagnosis of hypertensi on Elevated blood pressure reading without diagnosis of hypertensi on Disease Active 8-02 00:00: 00 [facility] Encounter for surveillan ce of contracept chris pills Encounter for surveillan ce of contracept chris pills Disease Active 2020-02 1-22 00:00: 00 [facility] with inconclusi ve viability, single or unspecifie d fetus with inconclusi ve viability, single or unspecifie d fetus Disease Active 4-13 00:00: 00 [facility] Overweight Overweight Disease Active 4-13 00:00: 00 [facility] Asthma during Asthma during Disease Active 2019-02 0-29 00:00: 00 [facility] Allergies, Adverse Reactions, Alerts Allergy Name Allergy Type Status Severity Reaction(s) Onset Date Inactive Date Treating Clinician Comments Source Codeine Drug Allergy Active Cough 2019-02 00:00: 00 [facility] CODEINE DRUG INGREDI Active COUGH 2019-02 00:00: 00 [facility] Predniso lone Propensi ty to adverse reaction s Active Rash 06-03 00:00: 00 [facility] Penicill ins Propensi ty to adverse reaction s Active Rash 06-03 00:00: 00 [facility] PENICILL INS Drug Class Active Rash 06-03 00:00: 00 [facility] PREDNISO LONE DRUG INGREDI Active Rash 06-03 00:00: 00 [facility] Penicill ins Propensi ty to adverse reaction s Active Rash 06-03 00:00: 00 [facility] Social History Social Habit Start Date Stop Date Quantity Comments Source ASSERTION 2021-11-25 00:00:00 [facility] History SDOH Alcohol Std Drinks [facility] History SDOH Alcohol Binge [facility] History SDOH Alcohol Comment [facility] intake 2022-09-07 00:00:00 2022-09-07 00:00:00 Ex-drinker (finding) [facility] Exposure to SARS-CoV-2 (event) 2022-07-11 00:00:00 2022-07-21 10:35:00 Not sure [facility] Tobacco use and exposure 2022-07-21 00:00:00 2022-07-21 00:00:00 Smokeless tobacco non-user [facility] History of Social function 2021-12-23 00:00:00 2021-12-23 00:00:00 [facility] History SDOH Alcohol Frequency 2018-12-20 00:00:00 2018-12-20 00:00:00 1 [facility] Sex Assigned At 2002 00:00:00 2000 00:00:00 [facility] Smoking Status Start Date Stop Date Source Never smoked tobacco [facility] Medications Ordered Medication Name Filled Medication Name Start Date Stop Date Current Medication? Ordering Clinician Indication Dosage Frequency Signature (SIG) Comments Components Source sulfamethox azole/trime thoprim (BACTRIM ORAL) 09-07 15:39: 00 Yes Take by mouth. [facility] CEPHALEXIN ORAL 09-07 15:39: 00 Yes Take by mouth 2 (two) times daily. [facility] sulfamethox azole/trime thoprim (BACTRIM ORAL) 09-07 15:39: 00 Yes Take by mouth. [facility] CEPHALEXIN ORAL 09-07 15:39: 00 Yes Take by mouth 2 (two) times daily. [facility] sulfamethox azole/trime thoprim (BACTRIM ORAL) 09-07 15:39: 00 Yes Take by mouth. [facility] CEPHALEXIN ORAL 09-07 15:39: 00 Yes Take by mouth 2 (two) times daily. [facility] sulfamethox azole/trime thoprim (BACTRIM ORAL) 09-07 15:39: 00 Yes Take by mouth. [facility] CEPHALEXIN ORAL 09-07 15:39: 00 Yes Take by mouth 2 (two) times daily. [facility] norethindro ne 0.35 mg tablet 09-07 00:00: 00 Yes [id number] 1{tbl} Take 1 tablet by mouth in the morning. [facility] norethindro ne 0.35 mg tablet 09-07 00:00: 00 Yes [id number] 1{tbl} Take 1 tablet by mouth in the morning. [facility] norethindro ne 0.35 mg tablet 09-07 00:00: 00 Yes [id number] 1{tbl} Take 1 tablet by mouth in the morning. [facility] norethindro ne 0.35 mg tablet 09-07 00:00: 00 Yes [id number] 1{tbl} Take 1 tablet by mouth in the morning. [facility] acetaminoph en (TYLENOL) tablet 650 mg 07-29 13:29: 04 Yes 650mg 650 mg, Oral, Q6HPRN, Starting on Mon07/29/22 at 0829, Until Discontinu ed, Routine, Pain (scale 1-3), Pain (scale 4-6) [facility] labetaloL (NORMODYNE) tablet 200 mg 07-29 06:00: 00 Yes 200mg 200 mg, Oral, Q12H, First dose on Mon07/29/22 at 0100, Until Discontinu ed, Routine [facility] labetaloL 200 mg tablet 07-29 00:00: 00 Yes [id number] 200mg Take 1 tablet by mouth every 12 (twelve) hours. [facility] labetaloL 200 mg tablet 07-29 00:00: 00 Yes [id number] 200mg Take 1 tablet by mouth every 12 (twelve) hours. [facility] labetaloL 200 mg tablet 07-29 00:00: 00 Yes [id number] 200mg Take 1 tablet by mouth every 12 (twelve) hours. [facility] labetaloL 200 mg tablet 07-29 00:00: 00 Yes [id number] 200mg Take 1 tablet by mouth every 12 (twelve) hours. [facility] labetaloL 200 mg tablet 0 07-29 00:00: 00 Yes [id number] 200mg Take 1 tablet by mouth every 12 (twelve) hours. [facility] labetaloL 200 mg tablet 0 07-29 00:00: 00 Yes [id number] 200mg Take 1 tablet by mouth every 12 (twelve) hours. [facility] labetaloL 200 mg tablet 0 07-29 00:00: 00 Yes [id number] 200mg Take 1 tablet by mouth every 12 (twelve) hours. [facility] labetaloL 200 mg tablet 0 07-29 00:00: 00 Yes [id number] 200mg Take 1 tablet by mouth every 12 (twelve) hours. [facility] labetaloL 200 mg tablet 07-29 00:00: 00 Yes [id number] 200mg Take 1 tablet by mouth every 12 (twelve) hours. [facility] labetaloL 200 mg tablet 07-29 00:00: 00 Yes [id number] 200mg Take 1 tablet by mouth every 12 (twelve) hours. [facility] labetaloL 200 mg tablet 07-29 00:00: 00 Yes [id number] 200mg Take 1 tablet by mouth every 12 (twelve) hours. [facility] labetaloL 200 mg tablet 07-29 00:00: 00 Yes [id number] 200mg Take 1 tablet by mouth every 12 (twelve) hours. [facility] labetaloL 200 mg tablet 07-29 00:00: 00 Yes [id number] 200mg Take 1 tablet by mouth every 12 (twelve) hours. [facility] KCL (KLOR-CON M20) tablet 40 mEq 07-25 06:15: 00 07-25 13:41 :00 No 40meq 40 mEq, Oral, DAILY, 2 doses, First dose on Mon07/25/22 at 0115, Last dose on Mon07/25/22 at 0900, Routine [facility] ferrous sulfate tablet 325 mg 07-25 01:00: 00 Yes 325mg 325 mg, Oral, BID, First dose on Mon07/24/22 at 2000, Until Discontinu ed, Routine [facility] ceFAZolin (ANCEF) 1,000 mg in NaCl [...]
D uration of Therapy: Other (see Comments) [facility] rho(D) immune globulin (RHOGAM) syringe 300 mcg 07-24 15:24: 51 Yes 300ug 300 mcg, Intramuscu lar, ONCE, For 1 dose, Conditiona l, Routine [facility] HYDROcodone -acetaminop hen (NORCO 5) 5-325 mg tablet 2 tablet 07-24 15:23: 27 Yes 2{tbl} 2 tablet, Oral, Q6HPRN, Starting on Mon07/24/22 at 1023, Until Discontinu ed, Routine, Pain (scale 7-10), Alternate with Ibuprofen [facility] HYDROcodone -acetaminop hen (NORCO 5) 5-325 mg tablet 1 tablet 07-24 15:23: 22 Yes 1{tbl} 1 tablet, Oral, Q6HPRN, Starting on Mon07/24/22 at 1023, Until Discontinu ed, Routine, Pain (scale 4-6), Alternate with Ibuprofen [facility] diphenhydrA MINE (BENADRYL) injection 25 mg 07-24 15:21: 28 Yes 25mg 25 mg, Slow IV Push, Q6HPRN, Starting on Mon07/24/22 at 1021, Until Discontinu ed, Routine, Itching [facility] diphenhydrA MINE (BENADRYL) tablet 25 mg 07-24 15:21: 28 Yes 25mg 25 mg, Oral, Q6HPRN, Starting on Mon07/24/22 at 1021, Until Discontinu ed, Routine, Sleep, Itching [facility] ondansetron (ZOFRAN (PF)) injection 4 mg 07-24 15:21: 28 Yes 4mg 4 mg, Slow IV Push, Q8HPRN, Starting on Mon07/24/22 at 1021, Until Discontinu ed, Routine, Nausea and Vomiting (N/V) [facility] bisacodyL (DULCOLAX) suppository 10 mg 07-24 15:21: 28 Yes 10mg 10 mg, Rectal, QDAILYPRN, Starting on Mon07/24/22 at 1021, Until Discontinu ed, Routine, Constipati on [facility] simethicone (GAS RELIEF (SIMETHICON E)) chewable tablet 160 mg 07-24 15:21: 28 Yes 160mg 160 mg, Oral, PC+HSPRN, Starting on Mon07/24/22 at 1021, Until Discontinu ed, Routine, Gas [facility] docusate (COLACE) capsule 200 mg 07-24 15:21: 28 Yes 200mg 200 mg, Oral, QDAILYPRN, Starting on Mon07/24/22 at 1021, Until Discontinu ed, Routine, Constipati on [facility] magnesium hydroxide (MILK OF MAGNESIA) 400 mg/5 mL suspension 30 mL 07-24 15:21: 28 Yes 30mL 30 mL, Oral, QDAILYPRN, Starting on Mon07/24/22 at 102, Until Discontinu ed, Routine, Constipati on [facility] lactated ringers IV infusion 1,000 mL 07-24 15:21: 28 07-24 16:25 :00 No 1000mL at 125 mL/hr, 1,000 mL, IV Infusion, PRN, 1 dose, Starting on Mon07/24/22 at 102, Until Discontinu ed, Routine [facility] 25/iron fum/folic/d betancur (-1 ORAL) 07-23 12:50: 40 07-23 00:00 :00 No Take by mouth. [facility] HYDROcodone -acetaminop hen (NORCO 5) 5-325 mg tablet 1 tablet 07-23 01:41: 26 07-25 01:40 :26 No 1{tbl} 1 tablet, Oral, Q6HPRN, Starting on Mon07/22/22 at 2040, Until Mon07/24/22 at 2039, Routine, Pain (scale 4-6) [facility] Nitrofurant oin&Nit. Macrocryst (MACROBID) 100 mg capsule 100 mg 07-23 01:00: 00 07-30 00:59 :00 No 100mg 100 mg, Oral, BID, 14 doses, First dose (after last modificati on) on Mon07/22/22 at 1999, Last dose on Mon07/29/22 at 08, Routine
Reason for Anti-Infec tive: Documented Infection< br>Documen brendan Infection Site: Urine
D uration of Therapy: 7 days [facility] Nitrofurant oin&Nit. Macrocryst (MACROBID) 100 mg capsule 100 mg 07-23 01:00: 00 07-30 00:59 :00 No 100mg 100 mg, Oral, BID, 14 doses, First dose (after last modificati on) on Mon07/22/22 at 1999, Last dose on Mon07/29/22 at 08, Routine
Reason for Anti-Infec tive: Documented Infection< br>Documen brendan Infection Site: Urine
D uration of Therapy: 7 days [facility] vitamin w/FA tablet 07-23 00:00: 00 Yes [id number] 1{tbl} Take 1 tablet by mouth in the morning. [facility] docusate 100 mg capsule 07-23 00:00: 00 Yes [id number] 200mg Take 2 capsules by mouth once daily as needed for Constipati on. [facility] ferrous sulfate 325 mg (65 mg iron) tablet 07-23 00:00: 00 Yes [id number] 325mg Take 1 tablet by mouth in the morning and 1 tablet in the evening. [facility] ibuprofen 600 mg tablet 07-23 00:00: 00 Yes [id number] 600mg Take 1 tablet by mouth every 6 (six) hours as needed (Pain). Take with food or milk. [facility] vitamin w/FA tablet 07-23 00:00: 00 Yes [id number] 1{tbl} Take 1 tablet by mouth in the morning. [facility] docusate 100 mg capsule 07-23 00:00: 00 Yes [id number] 200mg Take 2 capsules by mouth once daily as needed for Constipati on. [facility] ferrous sulfate 325 mg (65 mg iron) tablet 07-23 00:00: 00 Yes [id number] 325mg Take 1 tablet by mouth in the morning and 1 tablet in the evening. [facility] vitamin w/FA tablet 07-23 00:00: 00 Yes [id number] 1{tbl} Take 1 tablet by mouth in the morning. [facility] docusate 100 mg capsule 07-23 00:00: 00 Yes [id number] 200mg Take 2 capsules by mouth once daily as needed for Constipati on. [facility] ferrous sulfate 325 mg (65 mg iron) tablet 07-23 00:00: 00 Yes [id number] 325mg Take 1 tablet by mouth in the morning and 1 tablet in the evening. [facility] vitamin w/FA tablet 07-23 00:00: 00 Yes [id number] 1{tbl} Take 1 tablet by mouth in the morning. [facility] docusate 100 mg capsule 07-23 00:00: 00 Yes [id number] 200mg Take 2 capsules by mouth once daily as needed for Constipati on. [facility] ferrous sulfate 325 mg (65 mg iron) tablet 07-23 00:00: 00 Yes [id number] 325mg Take 1 tablet by mouth in the morning and 1 tablet in the evening. [facility] vitamin w/FA tablet 07-23 00:00: 00 Yes [id number] 1{tbl} Take 1 tablet by mouth in the morning. [facility] docusate 100 mg capsule 07-23 00:00: 00 Yes [id number] 200mg Take 2 capsules by mouth once daily as needed for Constipati on. [facility] ferrous sulfate 325 mg (65 mg iron) tablet 07-23 00:00: 00 Yes [id number] 325mg Take 1 tablet by mouth in the morning and 1 tablet in the evening. [facility] vitamin w/FA tablet 07-23 00:00: 00 Yes [id number] 1{tbl} Take 1 tablet by mouth in the morning. [facility] docusate 100 mg capsule 07-23 00:00: 00 Yes [id number] 200mg Take 2 capsules by mouth once daily as needed for Constipati on. [facility] ferrous sulfate 325 mg (65 mg iron) tablet 07-23 00:00: 00 Yes [id number] 325mg Take 1 tablet by mouth in the morning and 1 tablet in the evening. [facility] vitamin w/FA tablet 07-23 00:00: 00 Yes [id number] 1{tbl} Take 1 tablet by mouth in the morning. [facility] docusate 100 mg capsule 07-23 00:00: 00 Yes [id number] 200mg Take 2 capsules by mouth once daily as needed for Constipati on. [facility] ferrous sulfate 325 mg (65 mg iron) tablet 07-23 00:00: 00 Yes [id number] 325mg Take 1 tablet by mouth in the morning and 1 tablet in the evening. [facility] vitamin w/FA tablet 07-23 00:00: 00 Yes [id number] 1{tbl} Take 1 tablet by mouth in the morning. [facility] docusate 100 mg capsule 07-23 00:00: 00 Yes [id number] 200mg Take 2 capsules by mouth once daily as needed for Constipati on. [facility] ferrous sulfate 325 mg (65 mg iron) tablet 07-23 00:00: 00 Yes [id number] 325mg Take 1 tablet by mouth in the morning and 1 tablet in the evening. [facility] vitamin w/FA tablet 07-23 00:00: 00 Yes [id number] 1{tbl} Take 1 tablet by mouth in the morning. [facility] docusate 100 mg capsule 07-23 00:00: 00 Yes [id number] 200mg Take 2 capsules by mouth once daily as needed for Constipati on. [facility] ferrous sulfate 325 mg (65 mg iron) tablet 07-23 00:00: 00 Yes [id number] 325mg Take 1 tablet by mouth in the morning and 1 tablet in the evening. [facility] vitamin w/FA tablet 07-23 00:00: 00 Yes [id number] 1{tbl} Take 1 tablet by mouth in the morning. [facility] docusate 100 mg capsule 07-23 00:00: 00 Yes [id number] 200mg Take 2 capsules by mouth once daily as needed for Constipati on. [facility] ferrous sulfate 325 mg (65 mg iron) tablet 07-23 00:00: 00 Yes [id number] 325mg Take 1 tablet by mouth in the morning and 1 tablet in the evening. [facility] vitamin w/FA tablet 07-23 00:00: 00 Yes [id number] 1{tbl} Take 1 tablet by mouth in the morning. [facility] docusate 100 mg capsule 07-23 00:00: 00 Yes [id number] 200mg Take 2 capsules by mouth once daily as needed for Constipati on. [facility] ferrous sulfate 325 mg (65 mg iron) tablet 07-23 00:00: 00 Yes [id number] 325mg Take 1 tablet by mouth in the morning and 1 tablet in the evening. [facility] vitamin w/FA tablet 07-23 00:00: 00 Yes [id number] 1{tbl} Take 1 tablet by mouth in the morning. [facility] docusate 100 mg capsule 07-23 00:00: 00 Yes [id number] 200mg Take 2 capsules by mouth once daily as needed for Constipati on. [facility] ferrous sulfate 325 mg (65 mg iron) tablet 07-23 00:00: 00 Yes [id number] 325mg Take 1 tablet by mouth in the morning and 1 tablet in the evening. [facility] vitamin w/FA tablet 07-23 00:00: 00 Yes [id number] 1{tbl} Take 1 tablet by mouth in the morning. [facility] docusate 100 mg capsule 0 07-23 00:00: 00 Yes [id number] 200mg Take 2 capsules by mouth once daily as needed for Constipati on. [facility] ferrous sulfate 325 mg (65 mg iron) tablet 0 07-23 00:00: 00 Yes [id number] 325mg Take 1 tablet by mouth in the morning and 1 tablet in the evening. [facility] vitamin w/FA tablet 0 07-23 00:00: 00 Yes [id number] 1{tbl} Take 1 tablet by mouth in the morning. [facility] docusate 100 mg capsule 07-23 00:00: 00 Yes [id number] 200mg Take 2 capsules by mouth once daily as needed for Constipati on. [facility] ferrous sulfate 325 mg (65 mg iron) tablet 07-23 00:00: 00 Yes [id number] 325mg Take 1 tablet by mouth in the morning and 1 tablet in the evening. [facility] vitamin w/FA tablet 07-23 00:00: 00 Yes [id number] 1{tbl} Take 1 tablet by mouth in the morning. [facility] docusate 100 mg capsule 0 07-23 00:00: 00 Yes [id number] 200mg Take 2 capsules by mouth once daily as needed for Constipati on. [facility] ferrous sulfate 325 mg (65 mg iron) tablet 0 07-23 00:00: 00 Yes [id number] 325mg Take 1 tablet by mouth in the morning and 1 tablet in the evening. [facility] vitamin w/FA tablet 0 07-23 00:00: 00 Yes [id number] 1{tbl} Take 1 tablet by mouth in the morning. [facility] docusate 100 mg capsule 0 07-23 00:00: 00 Yes [id number] 200mg Take 2 capsules by mouth once daily as needed for Constipati on. [facility] ferrous sulfate 325 mg (65 mg iron) tablet 07-23 00:00: 00 Yes [id number] 325mg Take 1 tablet by mouth in the morning and 1 tablet in the evening. [facility] vitamin w/FA tablet 07-23 00:00: 00 Yes [id number] 1{tbl} Take 1 tablet by mouth in the morning. [facility] docusate 100 mg capsule 07-23 00:00: 00 Yes [id number] 200mg Take 2 capsules by mouth once daily as needed for Constipati on. [facility] ferrous sulfate 325 mg (65 mg iron) tablet 07-23 00:00: 00 Yes [id number] 325mg Take 1 tablet by mouth in the morning and 1 tablet in the evening. [facility] vitamin w/FA tablet 07-23 00:00: 00 Yes [id number] 1{tbl} Take 1 tablet by mouth in the morning. [facility] docusate 100 mg capsule 07-23 00:00: 00 Yes [id number] 200mg Take 2 capsules by mouth once daily as needed for Constipati on. [facility] ferrous sulfate 325 mg (65 mg iron) tablet 07-23 00:00: 00 Yes [id number] 325mg Take 1 tablet by mouth in the morning and 1 tablet in the evening. [facility] HYDROcodone -acetaminop hen 5-325 mg tablet 07-23 00:00: 00 07-31 04:59 :00 No [id number] 1{tbl} Take 1 tablet by mouth every 6 (six) hours as needed (Pain scale above 4) for up to 7 days. Do not exceed 3 grams of acetaminop hen in 24 hours. Indication s: acute pain [facility] ibuprofen 600 mg tablet 07-23 00:00: 00 07-24 00:00 :00 No [id number] 600mg Take 1 tablet by mouth every 6 (six) hours as needed (Pain). Take with food or milk. [facility] HYDROcodone -acetaminop hen 5-325 mg tablet 07-23 00:00: 00 07-24 00:00 :00 No [id number] 1{tbl} Take 1 tablet by mouth every 6 (six) hours as needed (Pain scale above 4) for up to 7 days. Do not exceed 3 grams of acetaminop hen in 24 hours. Indication s: acute pain [facility] ibuprofen (IBU) tablet 600 mg 07-22 23:00: 00 Yes 600mg 600 mg, Oral, Q6H, First dose on Mon07/22/22 at 1800, Until Discontinu ed, Routine [facility] ibuprofen (IBU) tablet 600 mg 07-22 23:00: 00 Yes 600mg 600 mg, Oral, Q6H, First dose on Mon07/22/22 at 1800, Until Discontinu ed, Routine [facility] acetaminoph en (TYLENOL) tablet 650 mg 07-22 20:00: 00 Yes 650mg 650 mg, Oral, Q6HPRN, Starting on Mon07/22/22 at 1500, Until Discontinu ed, Routine, Pain [facility] acetaminoph en (TYLENOL) tablet 650 mg 07-22 20:00: 00 Yes 650mg 650 mg, Oral, Q6HPRN, Starting on Mon07/22/22 at 1500, Until Discontinu ed, Routine, Pain [facility] acetaminoph en ADULT (OFIRMEV) injection 1,000 mg 07-22 02:00: 00 07-22 15:02 :00 No 1000mg 1,000 mg, IV Infusion, at 400 mL/hr Administer over 15 Minutes, Q6H, 3 doses, First dose (after last modificati on) on Mon07/21/22 at 2100, Last dose on Mon07/22/22 at 0600, Routine
Indicatio n: Perioperat chris Patient [facility] ketorolac (TORADOL) injection 30 mg 07-21 23:00: 00 07-22 16:43 :00 No 30mg 30 mg, Slow IV Push, Q6H, 4 doses, First dose on Mon07/21/22 at 1800, Last dose on Mon07/22/22 at 1200, Routine [facility] lactated ringers IV infusion 1,000 mL 07-21 21:30: 00 07-21 20:12 :06 No 1000mL at 125 mL/hr, 1,000 mL, IV Infusion, ONCE, 1 dose, On Mon07/21/22 at 1630, Routine [facility] diphenhydrA MINE (BENADRYL) injection 25 mg 07-21 20:34: 05 Yes 25mg 25 mg, Slow IV Push, Q6HPRN, Starting on Mon07/21/22 at 1534, Until Discontinu ed, Routine, Itching [facility] diphenhydrA MINE (BENADRYL) tablet 25 mg 07-21 20:34: 05 Yes 25mg 25 mg, Oral, Q6HPRN, Starting on Mon07/21/22 at 1534, Until Discontinu ed, Routine, Sleep, Itching [facility] ondansetron (ZOFRAN (PF)) injection 4 mg 07-21 20:34: 05 Yes 4mg 4 mg, Slow IV Push, Q8HPRN, Starting on Mon07/21/22 at 1534, Until Discontinu ed, Routine, Nausea and Vomiting (N/V) [facility] bisacodyL (DULCOLAX) suppository 10 mg 07-21 20:34: 05 Yes 10mg 10 mg, Rectal, QDAILYPRN, Starting on Mon07/21/22 at 1534, Until Discontinu ed, Routine, Constipati on [facility] simethicone (GAS RELIEF (SIMETHICON E)) chewable tablet 160 mg 07-21 20:34: 05 Yes 160mg 160 mg, Oral, PC+HSPRN, Starting on Mon07/21/22 at 1534, Until Discontinu ed, Routine, Gas [facility] docusate (COLACE) capsule 200 mg 07-21 20:34: 05 Yes 200mg 200 mg, Oral, QDAILYPRN, Starting on Mon07/21/22 at 1534, Until Discontinu ed, Routine, Constipati on [facility] magnesium hydroxide (MILK OF MAGNESIA) 400 mg/5 mL suspension 30 mL 07-21 20:34: 05 Yes 30mL 30 mL, Oral, QDAILYPRN, Starting on Mon07/21/22 at 1534, Until Discontinu ed, Routine, Constipati on [facility] diphenhydrA MINE (BENADRYL) injection 25 mg 07-21 20:34: 05 Yes 25mg 25 mg, Slow IV Push, Q6HPRN, Starting on Mon07/21/22 at 1534, Until Discontinu ed, Routine, Itching [facility] diphenhydrA MINE (BENADRYL) tablet 25 mg 07-21 20:34: 05 Yes 25mg 25 mg, Oral, Q6HPRN, Starting on Mon07/21/22 at 1534, Until Discontinu ed, Routine, Sleep, Itching [facility] ondansetron (ZOFRAN (PF)) injection 4 mg 07-21 20:34: 05 Yes 4mg 4 mg, Slow IV Push, Q8HPRN, Starting on Mon07/21/22 at 1534, Until Discontinu ed, Routine, Nausea and Vomiting (N/V) [facility] bisacodyL (DULCOLAX) suppository 10 mg 07-21 20:34: 05 Yes 10mg 10 mg, Rectal, QDAILYPRN, Starting on Mon07/21/22 at 1534, Until Discontinu ed, Routine, Constipati on [facility] simethicone (GAS RELIEF (SIMETHICON E)) chewable tablet 160 mg 07-21 20:34: 05 Yes 160mg 160 mg, Oral, PC+HSPRN, Starting on Mon07/21/22 at 1534, Until Discontinu ed, Routine, Gas [facility] docusate (COLACE) capsule 200 mg 07-21 20:34: 05 Yes 200mg 200 mg, Oral, QDAILYPRN, Starting on Mon07/21/22 at 1534, Until Discontinu ed, Routine, Constipati on [facility] magnesium hydroxide (MILK OF MAGNESIA) 400 mg/5 mL suspension 30 mL 07-21 20:34: 05 Yes 30mL 30 mL, Oral, QDAILYPRN, Starting on Mon07/21/22 at 1534, Until Discontinu ed, Routine, Constipati on [facility] lactated ringers IV infusion 1,000 mL 07-21 20:34: 05 07-22 00:14 :00 No 1000mL at 125 mL/hr, 1,000 mL, IV Infusion, PRN, 1 dose, Starting on Mon07/21/22 at 1534, Until Discontinu ed, Routine [facility] ceFAZolin (ANCEF) 2,000 mg in NaCl 0.9% (NS) 100 mL MINI-BAG 07-21 19:30: 00 07-21 19:07 :00 No 2000mg 2,000 mg, IV Piggyback, ONCE, 1 dose, On Mon07/21/22 at 1430, Administer over 30 Minutes, 100 mL
Reas on for Anti-Infec tive: Surgical Prophylaxi s
Surgi lottie Prophylaxi s: Abdominal< br>Duratio n of therapy: within 24 hours of surgery [facility] terbutaline (BRETHINE) injection 0.25 mg 07-21 16:37: 33 07-21 20:41 :35 No .25mg 0.25 mg, Subcutaneo us, Q15MIN PRN, 3 doses, Starting on Mon07/21/22 at 1137, Until Alissa 07/21/22 at 1541, Routine, Tachysysto le with NRFHT [facility] sodium citrate-cit diego acid (BICITRA) 500-334 mg/5 mL solution 30 mL 07-21 16:32: 59 07-21 18:32 :00 No 30mL 30 mL, Oral, PRE-PROCED URE ONCE, 1 dose, Starting on Mon07/21/22 at 1132, Until Discontinu ed, Routine, Surgery/Pr ocedure [facility] lactated ringers IV infusion 500 mL 07-21 16:32: 59 07-21 20:41 :35 No 500mL at 999 mL/hr, 500 mL, IV Infusion, PRN - SEE INSTRUCTIO NS, Starting on Alissa 07/21/22 at 1132, Until Alissa 07/21/22 at 1541, Routine [facility] [id number] IV infusion 1,000 mL 07-21 16:32: 59 07-21 20:41 :35 No 1000mL at 1-125 mL/hr, IV Infusion, TITRATE, Starting on Alissa 07/21/22 at 1132, Until Alissa 07/21/22 at 1541, Routine [facility] 25/iron fum/folic/d betancur (- ORAL) 07-21 11:32: 19 Yes Take by mouth. [facility] Nitrofurant oin&Nit. Macrocryst 100 mg capsule 07-19 00:00: 00 Yes [id number] 100mg Take 1 capsule by mouth in the morning and 1 capsule in the evening. [facility] Nitrofurant oin&Nit. Macrocryst 100 mg capsule 07-19 00:00: 00 Yes [id number] 100mg Take 1 capsule by mouth in the morning and 1 capsule in the evening. [facility] Nitrofurant oin&Nit. Macrocryst 100 mg capsule 07-19 00:00: 00 Yes [id number] 100mg Take 1 capsule by mouth in the morning and 1 capsule in the evening. [facility] Nitrofurant oin&Nit. Macrocryst 100 mg capsule 07-19 00:00: 00 07-24 00:00 :00 No [id number] 100mg Take 1 capsule by mouth in the morning and 1 capsule in the evening. [facility] 25/iron fum/folic/d betancur (-1 ORAL) 07-17 12:50: 57 Yes Take by mouth. [facility] 25/iron fum/folic/d betancur (-1 ORAL) 07-17 12:50: 57 Yes Take by mouth. [facility] 25/iron fum/folic/d betancur (-1 ORAL) 07-11 03:19: 16 Yes Take by mouth. [facility] 25/iron fum/folic/d betancur (-1 ORAL) 07-11 03:19: 16 Yes Take by mouth. [facility] 25/iron fum/folic/d betancur (-1 ORAL) 07-11 03:19: 16 Yes Take by mouth. [facility] terbutaline (BRETHINE) injection 0.25 mg 07-06 08:45: 00 07-06 07:59 :00 No .25mg 0.25 mg, Subcutaneo us, ONCE, 1 dose, On Mon07/06/22 at 0345, Routine [facility] NaCl 0.9% (NS) bolus infusion 1,000 mL 07-06 06:30: 00 07-06 06:30 :27 No 1000mL at 999 mL/hr, 1,000 mL, IV Infusion, ONCE, 1 dose, On Mon07/06/22 at 0130, STAT [facility] 25/iron fum/folic/d betancur (-1 ORAL) 07-06 05:26: 51 Yes Take by mouth. [facility] 25/iron fum/folic/d betancur (-1 ORAL) 07-06 05:26: 51 Yes Take by mouth. [facility] 25/iron fum/folic/d betancur (-1 ORAL) 07-06 05:26: 51 Yes Take by mouth. [facility] metroNIDAZO LE 500 mg tablet 04-14 00:00: 00 04-22 05:59 :00 No [id number] 500mg Take 1 tablet by mouth in the morning and 1 tablet in the evening. Do all this for 7 days. [facility] metroNIDAZO LE 500 mg tablet 2023-0 2-16 00:00: 00 04-22 05:59 :00 No [id number] 500mg Take 1 tablet by mouth in the morning and 1 tablet in the evening. Do all this for 7 days. [facility] metroNIDAZO LE 500 mg tablet 2022-0 2-16 00:00: 00 04-22 05:59 :00 No [id number] 500mg Take 1 tablet by mouth in the morning and 1 tablet in the evening. Do all this for 7 days. [facility] metroNIDAZO LE 500 mg tablet 2022-0 2-16 00:00: 00 04-22 05:59 :00 No [id number] 500mg Take 1 tablet by mouth in the morning and 1 tablet in the evening. Do all this for 7 days. [facility] metroNIDAZO LE 500 mg tablet 2022-0 2-16 00:00: 00 04-22 05:59 :00 No [id number] 500mg Take 1 tablet by mouth in the morning and 1 tablet in the evening. Do all this for 7 days. [facility] hydroxyprog esterone(PF ) (KATHLEEN AUTO-INJECT OR) 275 mg/1.1 mL injection 275 mg 03-31 06:00: 00 07-21 04:59 :00 No [id number] 275mg [facility] hydroxyprog esterone(PF ) (KATHLEEN AUTO-INJECT OR) 275 mg/1.1 mL injection 275 mg 03-31 06:00: 00 07-21 04:59 :00 No [id number] 275mg [facility] hydroxyprog esterone(PF ) (KATHLEEN AUTO-INJECT OR) 275 mg/1.1 mL injection 275 mg 03-31 06:00: 00 07-21 04:59 :00 No [id number] 275mg 275 mg, Subcutaneo us, QWEEKLY, 16 doses, First dose on Alissa 03/31/22 at 0000, Last dose on Alissa 07/14/22 at 0000, Routine [facility] hydroxyprog esterone(PF ) (KATHLEEN AUTO-INJECT OR) 275 mg/1.1 mL injection 275 mg 3-0 2-02 06:00: 00 07-21 04:59 :00 No [id number] 275mg [facility] hydroxyprog esterone(PF ) (KATHLEEN AUTO-INJECT OR) 275 mg/1.1 mL injection 275 mg 3-0 2-02 06:00: 00 07-21 04:59 :00 No [id number] 275mg 275 mg, Subcutaneo us, QWEEKLY, 16 doses, First dose on Alissa 03/31/22 at 0000, Last dose on Alissa 07/14/22 at 0000, Routine [facility] hydroxyprog esterone(PF ) (KATHLEEN AUTO-INJECT OR) 275 mg/1.1 mL injection 275 mg 3-0 2-02 06:00: 00 07-21 04:59 :00 No [id number] 275mg [facility] hydroxyprog esterone(PF ) (KATHLEEN AUTO-INJECT OR) 275 mg/1.1 mL injection 275 mg 3-0 2-02 06:00: 00 07-21 04:59 :00 No [id number] 275mg [facility] hydroxyprog esterone(PF ) (KATHLEEN AUTO-INJECT OR) 275 mg/1.1 mL injection 275 mg 3-0 2-02 06:00: 00 07-21 04:59 :00 No [id number] 275mg [facility] hydroxyprog esterone(PF ) (KATHLEEN AUTO-INJECT OR) 275 mg/1.1 mL injection 275 mg 3-0 2-02 06:00: 00 07-21 04:59 :00 No [id number] 275mg [facility] hydroxyprog esterone(PF ) (KATHLEEN AUTO-INJECT OR) 275 mg/1.1 mL injection 275 mg 3-0 2-02 06:00: 00 07-21 04:59 :00 No [id number] 275mg [facility] hydroxyprog esterone(PF ) (KATHLEEN AUTO-INJECT OR) 275 mg/1.1 mL injection 275 mg 3-0 2- 06:00: 00 07-21 04:59 :00 No [id number] 275mg 275 mg, Subcutaneo us, QWEEKLY, 16 doses, First dose on Mon03/31/22 at 0000, Last dose on Mon07/14/22 at 0000, Routine [facility] hydroxyprog esterone(PF ) (KATHLEEN AUTO-INJECT OR) 275 mg/1.1 mL injection 275 mg 3-0 2- 06:00: 00 07-21 04:59 :00 No [id number] 275mg [facility] hydroxyprog esterone(PF ) (KATHLEEN AUTO-INJECT OR) 275 mg/1.1 mL injection 275 mg 3-0 2- 06:00: 00 07-21 04:59 :00 No [id number] 275mg [facility] hydroxyprog esterone(PF ) (KATHLEEN AUTO-INJECT OR) 275 mg/1.1 mL injection 275 mg 3-0 2- 06:00: 00 07-21 04:59 :00 No [id number] 275mg [facility] hydroxyprog esterone(PF ) (KATHLEEN AUTO-INJECT OR) 275 mg/1.1 mL injection 275 mg 3-0 2- 06:00: 00 07-21 04:59 :00 No [id number] 275mg 275 mg, Subcutaneo us, QWEEKLY, 16 doses, First dose on Mon03/31/22 at 0000, Last dose on Mon07/14/22 at 0000, Routine [facility] hydroxyprog esterone(PF ) (KATHLEEN AUTO-INJECT OR) 275 mg/1.1 mL injection 275 mg 3-0 2- 06:00: 00 07-21 04:59 :00 No [id number] 275mg [facility] hydroxyprog esterone(PF ) (KATHLEEN AUTO-INJECT OR) 275 mg/1.1 mL injection 275 mg 3-0 2-02 06:00: 00 07-21 04:59 :00 No [id number] 275mg 275 mg, Subcutaneo us, QWEEKLY, 16 doses, First dose on Alissa 03/31/22 at 0000, Last dose on Alissa 07/14/22 at 0000, Routine [facility] hydroxyprog esterone(PF ) (KATHLEEN AUTO-INJECT OR) 275 mg/1.1 mL injection 275 mg 2023-0 2-02 06:00: 00 07-21 04:59 :00 No [id number] 275mg [facility] hydroxyprog esterone(PF ) (KATHLEEN AUTO-INJECT OR) 275 mg/1.1 mL injection 275 mg 3-0 2-02 06:00: 00 07-21 04:59 :00 No [id number] 275mg 275 mg, Subcutaneo us, QWEEKLY, 16 doses, First dose on Alissa 03/31/22 at 0000, Last dose on Alissa 07/14/22 at 0000, Routine [facility] hydroxyprog esterone(PF ) (KATHLEEN AUTO-INJECT OR) 275 mg/1.1 mL injection 275 mg 3-0 2-02 06:00: 00 07-21 04:59 :00 No [id number] 275mg [facility] hydroxyprog esterone(PF ) (KATHLEEN AUTO-INJECT OR) 275 mg/1.1 mL injection 275 mg 3-0 2-02 06:00: 00 07-21 04:59 :00 No [id number] 275mg 275 mg, Subcutaneo us, QWEEKLY, 16 doses, First dose on Alissa 03/31/22 at 0000, Last dose on Alissa 07/14/22 at 0000, Routine [facility] hydroxyprog esterone(PF ) (KATHLEEN AUTO-INJECT OR) 275 mg/1.1 mL injection 275 mg 3-0 2-02 06:00: 00 07-21 04:59 :00 No [id number] 275mg [facility] hydroxyprog esterone(PF ) (KATHLEEN AUTO-INJECT OR) 275 mg/1.1 mL injection 275 mg 3-0 2-02 06:00: 00 07-21 04:59 :00 No [id number] 275mg [facility] hydroxyprog esterone(PF ) (KATHLEEN AUTO-INJECT OR) 275 mg/1.1 mL injection 275 mg 3-0 2-02 06:00: 00 07-21 04:59 :00 No [id number] 275mg 275 mg, Subcutaneo us, QWEEKLY, 16 doses, First dose on Alissa 03/31/22 at 0000, Last dose on Alissa 07/14/22 at 0000, Routine [facility] hydroxyprog esterone(PF ) (KATHLEEN AUTO-INJECT OR) 275 mg/1.1 mL injection 275 mg 3-0 2-02 06:00: 00 07-21 04:59 :00 No [id number] 275mg [facility] hydroxyprog esterone(PF ) (KATHLEEN AUTO-INJECT OR) 275 mg/1.1 mL injection 275 mg 3-0 2-02 06:00: 00 07-21 04:59 :00 No [id number] 275mg 275 mg, Subcutaneo us, QWEEKLY, 16 doses, First dose on Alissa 03/31/22 at 0000, Last dose on Alissa 07/14/22 at 0000, Routine [facility] hydroxyprog esterone(PF ) (KATHLEEN AUTO-INJECT OR) 275 mg/1.1 mL injection 275 mg 3-0 2-02 06:00: 00 07-21 04:59 :00 No [id number] 275mg [facility] hydroxyprog esterone(PF ) (KATHLEEN AUTO-INJECT OR) 275 mg/1.1 mL injection 275 mg 3-0 2-02 06:00: 00 07-21 04:59 :00 No [id number] 275mg 275 mg, Subcutaneo us, QWEEKLY, 16 doses, First dose on Alissa 03/31/22 at 0000, Last dose on Alissa 07/14/22 at 0000, Routine [facility] hydroxyprog esterone(PF ) (KATHLEEN AUTO-INJECT OR) 275 mg/1.1 mL injection 275 mg 2023-0 2-02 06:00: 00 07-21 04:59 :00 No [id number] 275mg [facility] hydroxyprog esterone(PF ) (KATHLEEN AUTO-INJECT OR) 275 mg/1.1 mL injection 275 mg 2022-0 2-02 06:00: 00 07-21 04:59 :00 No [id number] 275mg 275 mg, Subcutaneo us, QWEEKLY, 16 doses, First dose on Alissa 03/31/22 at 0000, Last dose on Alissa 07/14/22 at 0000, Routine [facility] hydroxyprog esterone(PF ) (KATHLEEN AUTO-INJECT OR) 275 mg/1.1 mL injection 275 mg 2022-0 2-02 06:00: 00 07-21 04:59 :00 No [id number] 275mg [facility] hydroxyprog esterone(PF ) (KATHLEEN AUTO-INJECT OR) 275 mg/1.1 mL injection 275 mg 2022-0 2-02 06:00: 00 07-21 04:59 :00 No [id number] 275mg 275 mg, Subcutaneo us, QWEEKLY, 16 doses, First dose on Alissa 03/31/22 at 0000, Last dose on Alissa 07/14/22 at 0000, Routine [facility] hydroxyprog esterone(PF ) (KATHLEEN AUTO-INJECT OR) 275 mg/1.1 mL injection 275 mg 2022-0 2-02 06:00: 00 07-21 04:59 :00 No [id number] 275mg [facility] hydroxyprog esterone(PF ) (KATHLEEN AUTO-INJECT OR) 275 mg/1.1 mL injection 275 mg 3-0 2-02 06:00: 00 07-21 04:59 :00 No [id number] 275mg 275 mg, Subcutaneo us, QWEEKLY, 16 doses, First dose on Alissa 03/31/22 at 0000, Last dose on Alissa 07/14/22 at 0000, Routine [facility] hydroxyprog esterone(PF ) (KATHLEEN AUTO-INJECT OR) 275 mg/1.1 mL injection 275 mg 2022-0 2-02 06:00: 00 07-21 04:59 :00 No [id number] 275mg [facility] hydroxyprog esterone(PF ) (KATHLEEN AUTO-INJECT OR) 275 mg/1.1 mL injection 275 mg 2023-0 2-02 06:00: 00 07-21 04:59 :00 No [id number] 275mg [facility] hydroxyprog esterone(PF ) (KATHLEEN AUTO-INJECT OR) 275 mg/1.1 mL injection 275 mg 2023-0 2-02 06:00: 00 07-21 04:59 :00 No [id number] 275mg [facility] hydroxyprog esterone(PF ) (KATHLEEN AUTO-INJECT OR) 275 mg/1.1 mL injection 275 mg 2023-0 2-02 06:00: 00 07-21 04:59 :00 No [id number] 275mg [facility] hydroxyprog esterone(PF ) (KATHLEEN AUTO-INJECT OR) 275 mg/1.1 mL injection 275 mg 3-0 2-02 06:00: 00 07-21 04:59 :00 No [id number] 275mg [facility] hydroxyprog esterone(PF ) (KATHLEEN AUTO-INJECT OR) 275 mg/1.1 mL injection 275 mg 3-0 2-02 06:00: 00 07-21 04:59 :00 No [id number] 275mg [facility] hydroxyprog esterone(PF ) (KATHLEEN AUTO-INJECT OR) 275 mg/1.1 mL injection 275 mg 3-0 2-02 06:00: 00 07-21 04:59 :00 No [id number] 275mg [facility] hydroxyprog esterone(PF ) (KATHLEEN AUTO-INJECT OR) 275 mg/1.1 mL injection 275 mg 2023-0 2-02 06:00: 00 07-21 04:59 :00 No [id number] 275mg [facility] hydroxyprog esterone(PF ) (KATHLEEN AUTO-INJECT OR) 275 mg/1.1 mL injection 275 mg 3-0 2-02 06:00: 00 07-21 04:59 :00 No [id number] 275mg [facility] hydroxyprog esterone(PF ) (KATHLEEN AUTO-INJECT OR) 275 mg/1.1 mL injection 275 mg 3-0 2-02 06:00: 00 07-21 04:59 :00 No [id number] 275mg [facility] hydroxyprog esterone(PF ) (KATHLEEN AUTO-INJECT OR) 275 mg/1.1 mL injection 275 mg 2022-0 2-02 06:00: 00 07-21 04:59 :00 No [id number] 275mg [facility] hydroxyprog esterone(PF ) (KATHLEEN AUTO-INJECT OR) 275 mg/1.1 mL injection 275 mg 0 03-24 16:45: 00 03-24 15:59 :00 No [id number] 275mg [facility] hydroxyprog esterone(PF ) (KATHLEEN AUTO-INJECT OR) 275 mg/1.1 mL injection 275 mg 0 03-24 16:45: 00 03-24 15:59 :00 No [id number] 275mg 275 mg, Subcutaneo us, ONCE, 1 dose, On Alissa 03/24/22 at 1045, Routine [facility] hydroxyprog esterone,PF , 275 mg/1.1 mL injection 2022-0 - 00:00: 00 Yes 275mg inject 1.1 mL under the skin weekly. [facility] hydroxyprog esterone,PF , 275 mg/1.1 mL injection 2022-0 - 00:00: 00 Yes 275mg inject 1.1 mL under the skin weekly. [facility] hydroxyprog esterone,PF , 275 mg/1.1 mL injection 3-0 - 00:00: 00 Yes [id number] 275mg inject 1.1 mL under the skin weekly. [facility] hydroxyprog esterone,PF , 275 mg/1.1 mL injection 0 03-07 00:00: 00 Yes 275mg inject 1.1 mL under the skin weekly. [facility] hydroxyprog esterone,PF , 275 mg/1.1 mL injection 0 03-07 00:00: 00 Yes [id number] 275mg inject 1.1 mL under the skin weekly. [facility] hydroxyprog esterone,PF , 275 mg/1.1 mL injection 0 03-07 00:00: 00 Yes 275mg inject 1.1 mL under the skin weekly. [facility] hydroxyprog esterone,PF , 275 mg/1.1 mL injection 0 03-07 00:00: 00 Yes [id number] 275mg inject 1.1 mL under the skin weekly. [facility] hydroxyprog esterone,PF , 275 mg/1.1 mL injection 2022-0 03-07 00:00: 00 Yes 275mg inject 1.1 mL under the skin weekly. [facility] hydroxyprog esterone,PF , 275 mg/1.1 mL injection 0 03-07 00:00: 00 Yes [id number] 275mg inject 1.1 mL under the skin weekly. [facility] hydroxyprog esterone,PF , 275 mg/1.1 mL injection 0 03-07 00:00: 00 Yes 275mg inject 1.1 mL under the skin weekly. [facility] hydroxyprog esterone,PF , 275 mg/1.1 mL injection 0 03-07 00:00: 00 Yes [id number] 275mg inject 1.1 mL under the skin weekly. [facility] hydroxyprog esterone,PF , 275 mg/1.1 mL injection 2022-0 03-07 00:00: 00 Yes 275mg inject 1.1 mL under the skin weekly. [facility] hydroxyprog esterone,PF , 275 mg/1.1 mL injection 2022-0 03-07 00:00: 00 Yes [id number] 275mg inject 1.1 mL under the skin weekly. [facility] hydroxyprog esterone,PF , 275 mg/1.1 mL injection 3-0 03-07 00:00: 00 Yes 275mg inject 1.1 mL under the skin weekly. [facility] hydroxyprog esterone,PF , 275 mg/1.1 mL injection 3-0 03-07 00:00: 00 Yes [id number] 275mg inject 1.1 mL under the skin weekly. [facility] hydroxyprog esterone,PF , 275 mg/1.1 mL injection 2022-0 03-07 00:00: 00 Yes 275mg inject 1.1 mL under the skin weekly. [facility] , 275 mg/1.1 mL injection 3-0 03-07 00:00: 00 Yes [id number] 275mg inject 1.1 mL under the skin weekly. [facility] hydroxyprog esterone,PF , 275 mg/1.1 mL injection 0 03-07 00:00: 00 Yes 275mg inject 1.1 mL under the skin weekly. [facility] hydroxyprog esterone,PF , 275 mg/1.1 mL injection 0 03-07 00:00: 00 Yes [id number] 275mg inject 1.1 mL under the skin weekly. [facility] hydroxyprog esterone,PF , 275 mg/1.1 mL injection 0 03-07 00:00: 00 Yes 275mg inject 1.1 mL under the skin weekly. [facility] hydroxyprog esterone,PF , 275 mg/1.1 mL injection 2022-0 03-07 00:00: 00 Yes [id number] 275mg inject 1.1 mL under the skin weekly. [facility] hydroxyprog esterone,PF , 275 mg/1.1 mL injection 3-0 03-07 00:00: 00 Yes 275mg inject 1.1 mL under the skin weekly. [facility] hydroxyprog esterone,PF , 275 mg/1.1 mL injection 2022-0 03-07 00:00: 00 Yes [id number] 275mg inject 1.1 mL under the skin weekly. [facility] hydroxyprog esterone,PF , 275 mg/1.1 mL injection 3-0 03-07 00:00: 00 Yes 275mg inject 1.1 mL under the skin weekly. [facility] hydroxyprog esterone,PF , 275 mg/1.1 mL injection 3-0 03-07 00:00: 00 Yes [id number] 275mg inject 1.1 mL under the skin weekly. [facility] hydroxyprog esterone,PF , 275 mg/1.1 mL injection 3-0 03-07 00:00: 00 Yes 275mg inject 1.1 mL under the skin weekly. [facility] hydroxyprog esterone,PF , 275 mg/1.1 mL injection 2022-0 03-07 00:00: 00 Yes [id number] 275mg inject 1.1 mL under the skin weekly. [facility] hydroxyprog esterone,PF , 275 mg/1.1 mL injection 2022-0 03-07 00:00: 00 Yes 275mg inject 1.1 mL under the skin weekly. [facility] hydroxyprog esterone,PF , 275 mg/1.1 mL injection 2022-0 03-07 00:00: 00 Yes [id number] 275mg inject 1.1 mL under the skin weekly. [facility] [facility] hydroxyprog esterone,PF , 275 mg/1.1 mL injection 3-0 03-07 00:00: 00 Yes 275mg inject 1.1 mL under the skin weekly. [facility] hydroxyprog esterone,PF , 275 mg/1.1 mL injection 3-0 03-07 00:00: 00 Yes [id number] 275mg inject 1.1 mL under the skin weekly. [facility] hydroxyprog esterone,PF , 275 mg/1.1 mL injection 3-0 03-07 00:00: 00 Yes 275mg inject 1.1 mL under the skin weekly. [facility] hydroxyprog esterone,PF , 275 mg/1.1 mL injection 3-0 03-07 00:00: 00 Yes [id number] 275mg inject 1.1 mL under the skin weekly. [facility] hydroxyprog esterone,PF , 275 mg/1.1 mL injection 3-0 03-07 00:00: 00 Yes 275mg inject 1.1 mL under the skin weekly. [facility] hydroxyprog esterone,PF , 275 mg/1.1 mL injection 3-0 03-07 00:00: 00 Yes [id number] 275mg inject 1.1 mL under the skin weekly. [facility] , 275 mg/1.1 mL injection 2022-0 03-07 00:00: 00 Yes 275mg inject 1.1 mL under the skin weekly. [facility] hydroxyprog esterone,PF , 275 mg/1.1 mL injection 2022-0 03-07 00:00: 00 Yes [id number] 275mg inject 1.1 mL under the skin weekly. [facility] hydroxyprog esterone,PF , 275 mg/1.1 mL injection 0 03-07 00:00: 00 Yes 275mg inject 1.1 mL under the skin weekly. [facility] hydroxyprog esterone,PF , 275 mg/1.1 mL injection 0 03-07 00:00: 00 Yes [id number] 275mg inject 1.1 mL under the skin weekly. [facility] hydroxyprog esterone,PF , 275 mg/1.1 mL injection 0 03-07 00:00: 00 Yes 275mg inject 1.1 mL under the skin weekly. [facility] hydroxyprog esterone,PF , 275 mg/1.1 mL injection 0 03-07 00:00: 00 Yes [id number] 275mg inject 1.1 mL under the skin weekly. [facility] hydroxyprog esterone,PF , 275 mg/1.1 mL injection 0 03-07 00:00: 00 Yes 275mg inject 1.1 mL under the skin weekly. [facility] hydroxyprog esterone,PF , 275 mg/1.1 mL injection 2022-0 03-07 00:00: 00 Yes [id number] 275mg inject 1.1 mL under the skin weekly. [facility] hydroxyprog esterone,PF , 275 mg/1.1 mL injection 3-0 03-07 00:00: 00 Yes 275mg inject 1.1 mL under the skin weekly. [facility] hydroxyprog esterone,PF , 275 mg/1.1 mL injection 2022-0 03-07 00:00: 00 Yes [id number] 275mg inject 1.1 mL under the skin weekly. [facility] hydroxyprog esterone,PF , 275 mg/1.1 mL injection 3-0 03-07 00:00: 00 Yes 275mg inject 1.1 mL under the skin weekly. [facility] hydroxyprog esterone,PF , 275 mg/1.1 mL injection 3-0 03-07 00:00: 00 Yes [id number] 275mg inject 1.1 mL under the skin weekly. [facility] hydroxyprog esterone,PF , 275 mg/1.1 mL injection 3-0 03-07 00:00: 00 Yes 275mg inject 1.1 mL under the skin weekly. [facility] hydroxyprog esterone,PF , 275 mg/1.1 mL injection 3-0 03-07 00:00: 00 Yes [id number] 275mg inject 1.1 mL under the skin weekly. [facility] hydroxyprog esterone,PF , 275 mg/1.1 mL injection 3-0 03-07 00:00: 00 Yes 275mg inject 1.1 mL under the skin weekly. [facility] hydroxyprog esterone,PF , 275 mg/1.1 mL injection 30 03-07 00:00: 00 Yes [id number] 275mg inject 1.1 mL under the skin weekly. [facility] hydroxyprog esterone,PF , 275 mg/1.1 mL injection 30 03-07 00:00: 00 Yes 275mg inject 1.1 mL under the skin weekly. [facility] hydroxyprog esterone,PF , 275 mg/1.1 mL injection 3-0 03-07 00:00: 00 Yes [id number] 275mg inject 1.1 mL under the skin weekly. [facility] hydroxyprog esterone,PF , 275 mg/1.1 mL injection 3-0 03-07 00:00: 00 Yes 275mg inject 1.1 mL under the skin weekly. [facility] hydroxyprog esterone,PF , 275 mg/1.1 mL injection 3-0 03-07 00:00: 00 Yes [id number] 275mg inject 1.1 mL under the skin weekly. [facility] hydroxyprog esterone,PF , 275 mg/1.1 mL injection 0 03-07 00:00: 00 Yes 275mg inject 1.1 mL under the skin weekly. [facility] hydroxyprog esterone,PF , 275 mg/1.1 mL injection 0 03-07 00:00: 00 Yes [id number] 275mg inject 1.1 mL under the skin weekly. [facility] hydroxyprog esterone,PF , 275 mg/1.1 mL injection 0 03-07 00:00: 00 Yes 275mg inject 1.1 mL under the skin weekly. [facility] hydroxyprog esterone,PF , 275 mg/1.1 mL injection 2022-0 03-07 00:00: 00 Yes [id number] 275mg inject 1.1 mL under the skin weekly. [facility] hydroxyprog esterone,PF , 275 mg/1.1 mL injection 0 03-07 00:00: 00 Yes 275mg inject 1.1 mL under the skin weekly. [facility] hydroxyprog esterone,PF , 275 mg/1.1 mL injection 0 03-07 00:00: 00 Yes [id number] 275mg inject 1.1 mL under the skin weekly. [facility] hydroxyprog esterone,PF , 275 mg/1.1 mL injection 0 03-07 00:00: 00 Yes 275mg inject 1.1 mL under the skin weekly. [facility] hydroxyprog esterone,PF , 275 mg/1.1 mL injection 2022-0 03-07 00:00: 00 Yes [id number] 275mg inject 1.1 mL under the skin weekly. [facility] hydroxyprog esterone,PF , 275 mg/1.1 mL injection 2022-0 03-07 00:00: 00 Yes 275mg inject 1.1 mL under the skin weekly. [facility] hydroxyprog esterone,PF , 275 mg/1.1 mL injection 3-0 03-07 00:00: 00 Yes [id number] 275mg inject 1.1 mL under the skin weekly. [facility] hydroxyprog esterone,PF , 275 mg/1.1 mL injection 0 03-07 00:00: 00 Yes 275mg inject 1.1 mL under the skin weekly. [facility] hydroxyprog esterone,PF , 275 mg/1.1 mL injection 0 03-07 00:00: 00 Yes [id number] 275mg inject 1.1 mL under the skin weekly. [facility] , 275 mg/1.1 mL injection 03-07 00:00: 00 Yes 275mg inject 1.1 mL under the skin weekly. [facility] hydroxyprog esterone,PF , 275 mg/1.1 mL injection 03-07 00:00: 00 Yes [id number] 275mg inject 1.1 mL under the skin weekly. [facility] hydroxyprog esterone,PF , 275 mg/1.1 mL injection 03-07 00:00: 00 Yes 275mg inject 1.1 mL under the skin weekly. [facility] hydroxyprog esterone,PF , 275 mg/1.1 mL injection 0 03-07 00:00: 00 Yes [id number] 275mg inject 1.1 mL under the skin weekly. [facility] hydroxyprog esterone,PF , 275 mg/1.1 mL injection 03-07 00:00: 00 Yes 275mg inject 1.1 mL under the skin weekly. [facility] hydroxyprog esterone,PF , 275 mg/1.1 mL injection 03-07 00:00: 00 Yes [id number] 275mg inject 1.1 mL under the skin weekly. [facility] hydroxyprog esterone,PF , 275 mg/1.1 mL injection 03-07 00:00: 00 07-21 00:00 :00 No 275mg inject 1.1 mL under the skin weekly. [facility] hydroxyprog esterone,PF , 275 mg/1.1 mL injection 0 03-07 00:00: 00 07-21 00:00 :00 No [id number] 275mg inject 1.1 mL under the skin weekly. [facility] hydroxyprog esterone,PF , 275 mg/1.1 mL injection 03-07 00:00: 00 07-21 00:00 :00 No 275mg inject 1.1 mL under the skin weekly. [facility] hydroxyprog esterone,PF , 275 mg/1.1 mL injection 03-07 00:00: 00 07-21 00:00 :00 No [id number] 275mg inject 1.1 mL under the skin weekly. [facility] hydroxyprog esterone caproate, ppres, 250 mg/mL injection 2021-02 00:00: 00 Yes [id number] 250mg 1 mL by Intramuscu lar route weekly. [facility] hydroxyprog esterone caproate, ppres, 250 mg/mL injection 2021-02 00:00: 00 03-07 00:00 :00 No [id number] 250mg 1 mL by Intramuscu lar route weekly. [facility] HYDROXYprog est,PF,,pre g presv, 250 mg/mL (1 mL) injection 2021-02 00:00: 00 Yes [facility] HYDROXYprog est,PF,,pre g presv, 250 mg/mL (1 mL) injection 2021-02 00:00: 00 Yes [facility] HYDROXYprog est,PF,,pre g presv, 250 mg/mL (1 mL) injection 2021-02 00:00: 00 Yes [facility] HYDROXYprog est,PF,,pre g presv, 250 mg/mL (1 mL) injection 2021-02 00:00: 00 Yes [facility] HYDROXYprog est,PF,,pre g presv, 250 mg/mL (1 mL) injection 2021-02 00:00: 00 Yes [facility] HYDROXYprog est,PF,,pre g presv, 250 mg/mL (1 mL) injection 2021-02 00:00: 00 Yes [facility] HYDROXYprog est,PF,,pre g presv, 250 mg/mL (1 mL) injection 2021-02 00:00: 00 Yes [facility] HYDROXYprog est,PF,,pre g presv, 250 mg/mL (1 mL) injection 2021-02 00:00: 00 Yes [facility] HYDROXYprog est,PF,,pre g presv, 250 mg/mL (1 mL) injection 2021-02 00:00: 00 Yes [facility] HYDROXYprog est,PF,,pre g presv, 250 mg/mL (1 mL) injection 2021-02 00:00: 00 Yes [facility] HYDROXYprog est,PF,,pre g presv, 250 mg/mL (1 mL) injection 2021-02 00:00: 00 Yes [facility] HYDROXYprog est,PF,,pre g presv, 250 mg/mL (1 mL) injection 2021-02 00:00: 00 Yes [facility] HYDROXYprog est,PF,,pre g presv, 250 mg/mL (1 mL) injection 2021-02 00:00: 00 Yes [facility] HYDROXYprog est,PF,,pre g presv, 250 mg/mL (1 mL) injection 2021-02 00:00: 00 Yes [facility] HYDROXYprog est,PF,,pre g presv, 250 mg/mL (1 mL) injection 2021-02 00:00: 00 Yes [facility] HYDROXYprog est,PF,,pre g presv, 250 mg/mL (1 mL) injection 2021-02 00:00: 00 Yes [facility] HYDROXYprog est,PF,,pre g presv, 250 mg/mL (1 mL) injection 2021-02 00:00: 00 Yes [facility] HYDROXYprog est,PF,,pre g presv, 250 mg/mL (1 mL) injection 2021-02 00:00: 00 Yes [facility] HYDROXYprog est,PF,,pre g presv, 250 mg/mL (1 mL) injection 2021-02 00:00: 00 Yes [facility] HYDROXYprog est,PF,,pre g presv, 250 mg/mL (1 mL) injection 2021-02 00:00: 00 Yes [facility] HYDROXYprog est,PF,,pre g presv, 250 mg/mL (1 mL) injection 2021-02 00:00: 00 Yes [facility] HYDROXYprog est,PF,,pre g presv, 250 mg/mL (1 mL) injection 2021-02 00:00: 00 Yes [facility] HYDROXYprog est,PF,,pre g presv, 250 mg/mL (1 mL) injection 2021-02 00:00: 00 Yes [facility] HYDROXYprog est,PF,,pre g presv, 250 mg/mL (1 mL) injection 2021-02 00:00: 00 Yes [facility] HYDROXYprog est,PF,,pre g presv, 250 mg/mL (1 mL) injection 2021-02 00:00: 00 Yes [facility] HYDROXYprog est,PF,,pre g presv, 250 mg/mL (1 mL) injection 2021-02 00:00: 00 Yes [facility] HYDROXYprog est,PF,,pre g presv, 250 mg/mL (1 mL) injection 2021-02 00:00: 00 Yes [facility] HYDROXYprog est,PF,,pre g presv, 250 mg/mL (1 mL) injection 2021-02 00:00: 00 Yes [facility] HYDROXYprog est,PF,,pre g presv, 250 mg/mL (1 mL) injection 2021-02 00:00: 00 Yes [facility] HYDROXYprog est,PF,,pre g presv, 250 mg/mL (1 mL) injection 2021-02 00:00: 00 Yes [facility] HYDROXYprog est,PF,,pre g presv, 250 mg/mL (1 mL) injection 2021-02 00:00: 00 Yes [facility] HYDROXYprog est,PF,,pre g presv, 250 mg/mL (1 mL) injection 2021-02 00:00: 00 07-21 00:00 :00 No [facility] HYDROXYprog est,PF,,pre g presv, 250 mg/mL (1 mL) injection 2021-02 00:00: 00 07-21 00:00 :00 No [facility] hydroxyprog esterone 250 mg/mL injection 2021-02 00:00: 00 Yes [id number] 250mg 1 mL by Intramuscu lar route weekly. [facility] 250 mg/mL injection 2021-02 00:00: 00 Yes [id number] 250mg 1 mL by Intramuscu lar route weekly. [facility] 250 mg/mL injection 2021-02 00:00: 00 03-07 00:00 :00 No [id number] 250mg 1 mL by Intramuscu lar route weekly. [facility] chlorhexidi ne 0.12 % mouthwash 2021-02 00:00: 00 Yes AFTER BRUSHING TEETH, SWISH 15ML IN MOUTH FOR 30 SECONDS THEN SPIT OUT TWICE DAILY [facility] chlorhexidi ne 0.12 % mouthwash 2021-02 00:00: 00 Yes AFTER BRUSHING TEETH, SWISH 15ML IN MOUTH FOR 30 SECONDS THEN SPIT OUT TWICE DAILY [facility] 2021-02 00:00: 00 Yes AFTER BRUSHING TEETH, SWISH 15ML IN MOUTH FOR 30 SECONDS THEN SPIT OUT TWICE DAILY [facility].12 % mouthwash 2021-02 00:00: 00 Yes AFTER BRUSHING TEETH, SWISH 15ML IN MOUTH FOR 30 SECONDS THEN SPIT OUT TWICE DAILY [facility].12 % mouthwash 2021-02 00:00: 00 Yes AFTER BRUSHING TEETH, SWISH 15ML IN MOUTH FOR 30 SECONDS THEN SPIT OUT TWICE DAILY [facility] chlorhexidi ne 0.12 % mouthwash 2021-02 00:00: 00 Yes AFTER BRUSHING TEETH, SWISH 15ML IN MOUTH FOR 30 SECONDS THEN SPIT OUT TWICE DAILY [facility] chlorhexidi ne 0.12 % mouthwash 2021-02 00:00: 00 Yes AFTER BRUSHING TEETH, SWISH 15ML IN MOUTH FOR 30 SECONDS THEN SPIT OUT TWICE DAILY [facility] chlorhexidi ne 0.12 % mouthwash 2021-02 00:00: 00 Yes AFTER BRUSHING TEETH, SWISH 15ML IN MOUTH FOR 30 SECONDS THEN SPIT OUT TWICE DAILY [facility] chlorhexidi ne 0.12 % mouthwash 2021-02 00:00: 00 Yes AFTER BRUSHING TEETH, SWISH 15ML IN MOUTH FOR 30 SECONDS THEN SPIT OUT TWICE DAILY [facility] chlorhexidi ne 0.12 % mouthwash 2021-02 00:00: 00 Yes AFTER BRUSHING TEETH, SWISH 15ML IN MOUTH FOR 30 SECONDS THEN SPIT OUT TWICE DAILY [facility] chlorhexidi ne 0.12 % mouthwash 2021-02 00:00: 00 Yes AFTER BRUSHING TEETH, SWISH 15ML IN MOUTH FOR 30 SECONDS THEN SPIT OUT TWICE DAILY [facility] chlorhexidi ne 0.12 % mouthwash 2021-02 00:00: 00 Yes AFTER BRUSHING TEETH, SWISH 15ML IN MOUTH FOR 30 SECONDS THEN SPIT OUT TWICE DAILY [facility] chlorhexidi ne 0.12 % mouthwash 2021-02 00:00: 00 Yes AFTER BRUSHING TEETH, SWISH 15ML IN MOUTH FOR 30 SECONDS THEN SPIT OUT TWICE DAILY [facility] chlorhexidi ne 0.12 % mouthwash 2021-02 00:00: 00 Yes AFTER BRUSHING TEETH, SWISH 15ML IN MOUTH FOR 30 SECONDS THEN SPIT OUT TWICE DAILY [facility] chlorhexidi ne 0.12 % mouthwash 2021-02 00:00: 00 Yes AFTER BRUSHING TEETH, SWISH 15ML IN MOUTH FOR 30 SECONDS THEN SPIT OUT TWICE DAILY [facility] chlorhexidi ne 0.12 % mouthwash 2021-02 00:00: 00 Yes AFTER BRUSHING TEETH, SWISH 15ML IN MOUTH FOR 30 SECONDS THEN SPIT OUT TWICE DAILY [facility] chlorhexidi ne 0.12 % mouthwash 2021-02 00:00: 00 Yes AFTER BRUSHING TEETH, SWISH 15ML IN MOUTH FOR 30 SECONDS THEN SPIT OUT TWICE DAILY [facility] chlorhexidi ne 0.12 % mouthwash 2021-02 00:00: 00 Yes AFTER BRUSHING TEETH, SWISH 15ML IN MOUTH FOR 30 SECONDS THEN SPIT OUT TWICE DAILY [facility] chlorhexidi ne 0.12 % mouthwash 2021-02 00:00: 00 Yes AFTER BRUSHING TEETH, SWISH 15ML IN MOUTH FOR 30 SECONDS THEN SPIT OUT TWICE DAILY [facility] chlorhexidi ne 0.12 % mouthwash 2021-02 00:00: 00 Yes AFTER BRUSHING TEETH, SWISH 15ML IN MOUTH FOR 30 SECONDS THEN SPIT OUT TWICE DAILY [facility] chlorhexidi ne 0.12 % mouthwash 2021-02 00:00: 00 Yes AFTER BRUSHING TEETH, SWISH 15ML IN MOUTH FOR 30 SECONDS THEN SPIT OUT TWICE DAILY [facility] chlorhexidi ne 0.12 % mouthwash 2021-02 00:00: 00 Yes AFTER BRUSHING TEETH, SWISH 15ML IN MOUTH FOR 30 SECONDS THEN SPIT OUT TWICE DAILY [facility] chlorhexidi ne 0.12 % mouthwash 2021-02 00:00: 00 Yes AFTER BRUSHING TEETH, SWISH 15ML IN MOUTH FOR 30 SECONDS THEN SPIT OUT TWICE DAILY [facility] chlorhexidi ne 0.12 % mouthwash 2021-02 00:00: 00 Yes AFTER BRUSHING TEETH, SWISH 15ML IN MOUTH FOR 30 SECONDS THEN SPIT OUT TWICE DAILY [facility] chlorhexidi ne 0.12 % mouthwash 2021-02 00:00: 00 Yes AFTER BRUSHING TEETH, SWISH 15ML IN MOUTH FOR 30 SECONDS THEN SPIT OUT TWICE DAILY [facility] chlorhexidi ne 0.12 % mouthwash 2021-02 00:00: 00 Yes AFTER BRUSHING TEETH, SWISH 15ML IN MOUTH FOR 30 SECONDS THEN SPIT OUT TWICE DAILY [facility] chlorhexidi ne 0.12 % mouthwash 2021-02 00:00: 00 Yes AFTER BRUSHING TEETH, SWISH 15ML IN MOUTH FOR 30 SECONDS THEN SPIT OUT TWICE DAILY [facility] chlorhexidi ne 0.12 % mouthwash 2021-02 00:00: 00 Yes AFTER BRUSHING TEETH, SWISH 15ML IN MOUTH FOR 30 SECONDS THEN SPIT OUT TWICE DAILY [facility] chlorhexidi ne 0.12 % mouthwash 2021-02 00:00: 00 Yes AFTER BRUSHING TEETH, SWISH 15ML IN MOUTH FOR 30 SECONDS THEN SPIT OUT TWICE DAILY [facility] chlorhexidi ne 0.12 % mouthwash 2021-02 00:00: 00 Yes AFTER BRUSHING TEETH, SWISH 15ML IN MOUTH FOR 30 SECONDS THEN SPIT OUT TWICE DAILY [facility] chlorhexidi ne 0.12 % mouthwash 2021-02 00:00: 00 Yes AFTER BRUSHING TEETH, SWISH 15ML IN MOUTH FOR 30 SECONDS THEN SPIT OUT TWICE DAILY [facility] chlorhexidi ne 0.12 % mouthwash 2021-02 00:00: 00 Yes AFTER BRUSHING TEETH, SWISH 15ML IN MOUTH FOR 30 SECONDS THEN SPIT OUT TWICE DAILY [facility] chlorhexidi ne 0.12 % mouthwash 2021-02 00:00: 00 Yes AFTER BRUSHING TEETH, SWISH 15ML IN MOUTH FOR 30 SECONDS THEN SPIT OUT TWICE DAILY [facility] chlorhexidi ne 0.12 % mouthwash 2021-02 00:00: 00 Yes AFTER BRUSHING TEETH, SWISH 15ML IN MOUTH FOR 30 SECONDS THEN SPIT OUT TWICE DAILY [facility].12 % mouthwash 2021-02 00:00: 00 Yes AFTER BRUSHING TEETH, SWISH 15ML IN MOUTH FOR 30 SECONDS THEN SPIT OUT TWICE DAILY [facility] 0.12 % mouthwash 2021-02 00:00: 00 Yes AFTER BRUSHING TEETH, SWISH 15ML IN MOUTH FOR 30 SECONDS THEN SPIT OUT TWICE DAILY [facility] chlorhexidi ne 0.12 % mouthwash 2021-02 00:00: 00 Yes AFTER BRUSHING TEETH, SWISH 15ML IN MOUTH FOR 30 SECONDS THEN SPIT OUT TWICE DAILY [facility] chlorhexidi ne 0.12 % mouthwash 2021-02 00:00: 00 Yes AFTER BRUSHING TEETH, SWISH 15ML IN MOUTH FOR 30 SECONDS THEN SPIT OUT TWICE DAILY [facility] chlorhexidi ne 0.12 % mouthwash 2021-02 00:00: 00 Yes AFTER BRUSHING TEETH, SWISH 15ML IN MOUTH FOR 30 SECONDS THEN SPIT OUT TWICE DAILY [facility] chlorhexidi ne 0.12 % mouthwash 2021-02 00:00: 00 07-21 00:00 :00 No AFTER BRUSHING TEETH, SWISH 15ML IN MOUTH FOR 30 SECONDS THEN SPIT OUT TWICE DAILY [facility] chlorhexidi ne 0.12 % mouthwash 2021-02 00:00: 00 07-21 00:00 :00 No AFTER BRUSHING TEETH, SWISH 15ML IN MOUTH FOR 30 SECONDS THEN SPIT OUT TWICE DAILY [facility] 25/iron fum/folic/d betancur (-1 ORAL) 2021-02 0 09:26: 35 Yes Take by mouth. [facility] 25/iron fum/folic/d betancur (-1 ORAL) 2021-02 0 09:26: 35 Yes Take by mouth. [facility]iron fum/folic/d betancur (-1 ORAL) 2021-02 0-13 09:26: 35 Yes Take by mouth. [facility] 25/iron fum/folic/d betancur (-1 ORAL) 2021-02 0-13 09:26: 35 Yes Take by mouth. [facility] 25/iron fum/folic/d betancur (-1 ORAL) 2021-02 0-13 09:26: 35 Yes Take by mouth. [facility] 25/iron fum/folic/d betancur (-1 ORAL) 2021-02 0-13 09:26: 35 Yes Take by mouth. [facility] 25/iron fum/folic/d betancur (-1 ORAL) 2021-02 0-13 09:26: 35 Yes Take by mouth. [facility] 25/iron fum/folic/d betancur (-1 ORAL) 2021-02 0-13 09:26: 35 Yes Take by mouth. [facility] 25/iron fum/folic/d betancur (-1 ORAL) 2021-02 0-13 09:26: 35 Yes Take by mouth. [facility] 25/iron fum/folic/d betancur (-1 ORAL) 2021-02 0-13 09:26: 35 Yes Take by mouth. [facility] 25/iron fum/folic/d betancur (-1 ORAL) 2021-02 0-13 09:26: 35 Yes Take by mouth. [facility] 25/iron fum/folic/d betancur (-1 ORAL) 2021-02 0-13 09:26: 35 Yes Take by mouth. [facility] 25/iron fum/folic/d betancur (-1 ORAL) 2021-02 0-13 09:26: 35 Yes Take by mouth. [facility] 25/iron fum/folic/d betancur (-1 ORAL) 2021-02 0-13 09:26: 35 Yes Take by mouth. [facility] 25/iron fum/folic/d betancur (-1 ORAL) 2021-02 0-13 09:26: 35 Yes Take by mouth. [facility] 25/iron fum/folic/d betancur (-1 ORAL) 2021-02 0-13 09:26: 35 Yes Take by mouth. [facility] 25/iron fum/folic/d betancur (-1 ORAL) 2021-02 0-13 09:26: 35 Yes Take by mouth. [facility] 25/iron fum/folic/d betancur (-1 ORAL) 2021-02 0-13 09:26: 35 Yes Take by mouth. [facility] 25/iron fum/folic/d betancur (-1 ORAL) 2021-02 0-13 09:26: 35 Yes Take by mouth. [facility] 25/iron fum/folic/d betancur (-1 ORAL) 2021-02 0-13 09:26: 35 Yes Take by mouth. [facility] 25/iron fum/folic/d betancur (-1 ORAL) 2021-02 0-13 09:26: 35 Yes Take by mouth. [facility] 25/iron fum/folic/d betancur (-1 ORAL) 2021-02 0-13 09:26: 35 Yes Take by mouth. [facility] 25/iron fum/folic/d betancur (-1 ORAL) 2021-02 0-13 09:26: 35 Yes Take by mouth. [facility] 25/iron fum/folic/d betancur (-1 ORAL) 2021-02 0-13 09:26: 35 Yes Take by mouth. [facility] 25/iron fum/folic/d betancur (-1 ORAL) 2021-02 0-13 09:26: 35 Yes Take by mouth. [facility] 25/iron fum/folic/d betancur (-1 ORAL) 2021-02 0-13 09:26: 35 Yes Take by mouth. [facility] 25/iron fum/folic/d betancur (-1 ORAL) 2021-02 0-13 09:26: 35 Yes Take by mouth. [facility] 25/iron fum/folic/d betancur (-1 ORAL) 2021-02 0-13 09:26: 35 Yes Take by mouth. [facility] 25/iron fum/folic/d betancur (-1 ORAL) 2021-02 0-13 09:26: 35 Yes Take by mouth. [facility] 25/iron fum/folic/d betancur (-1 ORAL) 2021-02 0-13 09:26: 35 Yes Take by mouth. [facility] 25/iron fum/folic/d betancur (-1 ORAL) 2021-02 0-13 09:26: 35 Yes Take by mouth. [facility] [facility] 25/iron fum/folic/d betancur (-1 ORAL) 2021-02 0-13 09:26: 35 Yes Take by mouth. [facility] 25/iron fum/folic/d betancur (-1 ORAL) 2021-02 0-13 09:26: 35 Yes Take by mouth. [facility] 25/iron fum/folic/d betancur (-1 ORAL) 2021-02 0-13 09:26: 35 Yes Take by mouth. [facility] 25/iron fum/folic/d betancur (-1 ORAL) 2021-02 0-13 09:26: 35 Yes Take by mouth. [facility] 25/iron fum/folic/d betancur (-1 ORAL) 2021-02 0-13 09:26: 35 Yes Take by mouth. [facility] 25/iron fum/folic/d betancur (-1 ORAL) 2021-02 0-13 09:26: 35 Yes Take by mouth. [facility] 25/iron fum/folic/d betancur (-1 ORAL) 2021-02 0-13 09:26: 35 Yes Take by mouth. [facility] 25/iron fum/folic/d betancur (-1 ORAL) 2021-02 0-13 09:26: 35 Yes Take by mouth. [facility] 25/iron fum/folic/d betancur (-1 ORAL) 2021-02 0-13 09:26: 35 Yes Take by mouth. [facility] 25/iron fum/folic/d betancur (-1 ORAL) 2021-1 0-13 09:26: 35 Yes Take by mouth. [facility] PROAIR HFA 90 mcg/actuati on inhaler 2-0 8-30 00:00: 00 Yes [facility] PROAIR HFA 90 mcg/actuati on inhaler 2-0 8-30 00:00: 00 Yes [facility] PROAIR HFA 90 mcg/actuati on inhaler 2-0 8-30 00:00: 00 Yes [facility] PROAIR HFA 90 mcg/actuati on inhaler 2-0 8-30 00:00: 00 Yes [facility] PROAIR HFA 90 mcg/actuati on inhaler 2021-0 8-30 00:00: 00 Yes [facility] PROAIR HFA 90 mcg/actuati on inhaler 2-0 830 00:00: 00 Yes [facility] PROAIR HFA 90 mcg/actuati on inhaler 2-0 830 00:00: 00 Yes [facility] PROAIR HFA 90 mcg/actuati on inhaler 2-0 830 00:00: 00 Yes [facility] PROAIR HFA 90 mcg/actuati on inhaler 2-0 830 00:00: 00 Yes [facility] PROAIR HFA 90 mcg/actuati on inhaler 2-0 8-30 00:00: 00 Yes [facility] PROAIR HFA 90 mcg/actuati on inhaler 2-0 8-30 00:00: 00 Yes [facility] PROAIR HFA 90 mcg/actuati on inhaler 2-0 8-30 00:00: 00 Yes [facility] PROAIR HFA 90 mcg/actuati on inhaler 2-0 8-30 00:00: 00 Yes [facility] PROAIR HFA 90 mcg/actuati on inhaler 2-0 8-30 00:00: 00 Yes [facility] PROAIR HFA 90 mcg/actuati on [...] 8-30 00:00: 00 Yes [facility] PROAIR HFA 90 mcg/actuati on inhaler 2022-0 8-30 00:00: 00 Yes [facility] PROAIR HFA 90 mcg/actuati on inhaler 2022-0 830 00:00: 00 Yes [facility] PROAIR HFA 90 mcg/actuati on inhaler 2022-0 830 00:00: 00 Yes [facility] PROAIR HFA 90 mcg/actuati on inhaler 2022-0 830 00:00: 00 Yes [facility] PROAIR HFA 90 mcg/actuati on inhaler 2022-0 8-30 00:00: 00 Yes [facility] PROAIR HFA 90 mcg/actuati on inhaler 2022-0 8-30 00:00: 00 Yes [facility] PROAIR HFA 90 mcg/actuati on inhaler 2022-0 8-30 00:00: 00 Yes [facility] PROAIR HFA 90 mcg/actuati on inhaler 2022-0 8-30 00:00: 00 Yes [facility] PROAIR HFA 90 mcg/actuati on [...] 8-30 00:00: 00 Yes [facility] PROAIR HFA 90 mcg/actuati on inhaler 2022-0 8-30 00:00: 00 Yes [facility] PROAIR HFA 90 mcg/actuati on inhaler 2022-0 8-30 00:00: 00 Yes [facility] PROAIR HFA 90 mcg/actuati on inhaler 2022-0 8-30 00:00: 00 Yes [facility] PROAIR HFA 90 mcg/actuati on inhaler 2022-0 8-30 00:00: 00 Yes [facility] PROAIR HFA 90 mcg/actuati on inhaler 2022-0 830 00:00: 00 Yes [facility] PROAIR HFA 90 mcg/actuati on inhaler 2022-0 830 00:00: 00 Yes [facility] PROAIR HFA 90 mcg/actuati on inhaler 2022-0 8-30 00:00: 00 Yes [facility] PROAIR HFA 90 mcg/actuati on inhaler 2022-0 830 00:00: 00 Yes [facility] PROAIR HFA 90 mcg/actuati on inhaler 2022-0 830 00:00: 00 Yes [facility] PROAIR HFA 90 mcg/actuati on inhaler 2022-0 8-30 00:00: 00 Yes [facility] PROAIR HFA 90 mcg/actuati on inhaler 2022-0 8-30 00:00: 00 Yes [facility] PROAIR HFA 90 mcg/actuati on inhaler 2022-0 8-30 00:00: 00 Yes [facility] PROAIR HFA 90 mcg/actuati on inhaler 2022-0 8-30 00:00: 00 Yes [facility] PROAIR HFA 90 mcg/actuati on inhaler 2022-0 8-30 00:00: 00 Yes [facility] PROAIR HFA 90 mcg/actuati on inhaler 2022-0 8-30 00:00: 00 Yes [facility] PROAIR HFA 90 mcg/actuati on inhaler 0 8 00:00: 00 Yes [facility] PROAIR HFA 90 mcg/actuati on inhaler 0 8 00:00: 00 Yes [facility] PROAIR HFA 90 mcg/actuati on inhaler 0 8 00:00: 00 Yes [facility] PROAIR HFA 90 mcg/actuati on inhaler 0 8 00:00: 00 Yes [facility] PROAIR HFA 90 mcg/actuati on inhaler 0 8 00:00: 00 07-23 00:00 :00 No [facility] norgestimat e-ethinyl estradioL (TRI-SPRINT EC) 0.18/0.215/ 0.25 mg-35 mcg (28) tablet 10-12 00:00: 00 Yes [id number] 1{tbl} Take 1 tablet by mouth in the morning. [facility] norgestimat e-ethinyl estradioL (TRI-SPRINT EC) 0.18/0.215/ 0.25 mg-35 mcg (28) tablet 10-12 00:00: 00 12-09 00:00 :00 No [id number] 1{tbl} Take 1 tablet by mouth in the morning. [facility] norgestimat e-ethinyl estradioL (ORTHO TRI-CYCLEN, 28,) 0.18/0.215/ 0.25 mg-35 mcg (28) tablet 2020-02 00:00: 00 Yes [id number] 1{tbl} Take 1 tablet by mouth daily. [facility] norgestimat e-ethinyl estradioL (ORTHO TRI-CYCLEN, 28,) 0.18/0.215/ 0.25 mg-35 mcg (28) tablet 2020-02 00:00: 00 12-09 00:00 :00 No [id number] 1{tbl} Take 1 tablet by mouth daily. [facility] norgestimat e-ethinyl estradioL (ORTHO TRI-CYCLEN, 28,) 0.18/0.215/ 0.25 mg-35 mcg (28) tablet 2020-02 00:00: 00 12-09 00:00 :00 No [id number] 1{tbl} Take 1 tablet by mouth daily. [facility] Immunizations Ordered Immunization Name Filled Immunization Name Date Status Comments Source TDAP 2022-05-26 00:00:00 Completed [facility] TDAP 2022-05-26 00:00:00 Completed [facility] TDAP 2022-05-26 00:00:00 Completed [facility] TDAP 2022-05-26 00:00:00 Completed [facility] TDAP 2022-05-26 00:00:00 Completed [facility] TDAP 2022-05-26 00:00:00 Completed [facility] TDAP 2022-05-26 00:00:00 Completed [facility] TDAP 2022-05-26 00:00:00 Completed [facility] TDAP 2022-05-26 00:00:00 Completed [facility] TDAP 2022-05-26 00:00:00 Completed [facility] TDAP 2022-05-26 00:00:00 Completed [facility] TDAP 2022-05-26 00:00:00 Completed [facility] TDAP 2022-05-26 00:00:00 Completed [facility] TDAP 2022-05-26 00:00:00 Completed [facility] TDAP 2022-05-26 00:00:00 Completed [facility] TDAP 2022-05-26 00:00:00 Completed [facility] TDAP 2022-05-26 00:00:00 Completed [facility] TDAP 2022-05-26 00:00:00 Completed [facility] TDAP 2022-05-26 00:00:00 Completed [facility] TDAP 2022-05-26 00:00:00 Completed [facility] TDAP 2022-05-26 00:00:00 Completed [facility] TDAP 2022-05-26 00:00:00 Completed [facility] TDAP 2022-05-26 00:00:00 Completed [facility] TDAP 2022-05-26 00:00:00 Completed [facility] TDAP 2022-05-26 00:00:00 Completed [facility] TDAP 2022-05-26 00:00:00 Completed [facility] TDAP 2020-06-09 00:00:00 Completed [facility] TDAP 2020-06-09 00:00:00 Completed [facility] TDAP 2020-06-09 00:00:00 Completed [facility] TDAP 2020-06-09 00:00:00 Completed [facility] TDAP 2020-06-09 00:00:00 Completed [facility] TDAP 2020-06-09 00:00:00 Completed [facility] TDAP 2020-06-09 00:00:00 Completed [facility] TDAP 2020-06-09 00:00:00 Completed [facility] TDAP 2020-06-09 00:00:00 Completed [facility] TDAP 2020-06-09 00:00:00 Completed [facility] TDAP 2020-06-09 00:00:00 Completed [facility] TDAP 2020-06-09 00:00:00 Completed [facility] TDAP 2020-06-09 00:00:00 Completed [facility] TDAP 2020-06-09 00:00:00 Completed [facility] TDAP 2020-06-09 00:00:00 Completed [facility] TDAP 2020-06-09 00:00:00 Completed [facility] TDAP 2020-06-09 00:00:00 Completed [facility] TDAP 2020-06-09 00:00:00 Completed [facility] TDAP 2020-06-09 00:00:00 Completed [facility] TDAP 2020-06-09 00:00:00 Completed [facility] TDAP 2020-06-09 00:00:00 Completed [facility] TDAP 2020-06-09 00:00:00 Completed [facility] TDAP 2020-06-09 00:00:00 Completed [facility] TDAP 2020-06-09 00:00:00 Completed [facility] TDAP 2020-06-09 00:00:00 Completed [facility] TDAP 2020-06-09 00:00:00 Completed [facility] TDAP 2020-06-09 00:00:00 Completed [facility] TDAP 2020-06-09 00:00:00 Completed [facility] TDAP 2020-06-09 00:00:00 Completed [facility] TDAP 2020-06-09 00:00:00 Completed [facility] TDAP 2020-06-09 00:00:00 Completed [facility] TDAP 2020-06-09 00:00:00 Completed [facility] TDAP 2020-06-09 00:00:00 Completed [facility] TDAP 2020-06-09 00:00:00 Completed [facility] TDAP 2020-06-09 00:00:00 Completed [facility] TDAP 2020-06-09 00:00:00 Completed [facility] TDAP 2020-06-09 00:00:00 Completed [facility] TDAP 2020-06-09 00:00:00 Completed [facility] TDAP 2020-06-09 00:00:00 Completed [facility] TDAP 2020-06-09 00:00:00 Completed [facility] TDAP 2020-06-09 00:00:00 Completed [facility] TDAP 2020-06-09 00:00:00 Completed [facility] TDAP 2020-06-09 00:00:00 Completed [facility] TDAP 2020-06-09 00:00:00 Completed [facility] TDAP 2020-06-09 00:00:00 Completed [facility] TDAP 2020-06-09 00:00:00 Completed [facility] TDAP 2020-06-09 00:00:00 Completed [facility] TDAP 2020-06-09 00:00:00 Completed [facility] TDAP 2020-06-09 00:00:00 Completed [facility] TDAP 2020-06-09 00:00:00 Completed [facility] TDAP 2020-06-09 00:00:00 Completed [facility] TDAP 2020-06-09 00:00:00 Completed [facility] TDAP 2020-06-09 00:00:00 Completed [facility] TDAP 2020-06-09 00:00:00 Completed [facility] TDAP 2020-06-09 00:00:00 Completed [facility] TDAP 2020-06-09 00:00:00 Completed [facility] TDAP 2020-06-09 00:00:00 Completed [facility] TDAP 2020-06-09 00:00:00 Completed [facility] TDAP 2020-06-09 00:00:00 Completed [facility] TDAP 2020-06-09 00:00:00 Completed [facility] TDAP 2020-06-09 00:00:00 Completed [facility] TDAP 2020-06-09 00:00:00 Completed [facility] TDAP 2020-06-09 00:00:00 Completed [facility] Influenza Virus Vaccine Quad .5 mL IM 6+ MO 2020-01-21 00:00:00 Completed [facility] Influenza Virus Vaccine Quad .5 mL IM 6+ MO 2020-01-21 00:00:00 Completed [facility] Influenza Virus Vaccine Quad .5 mL IM 6+ MO 2020-01-21 00:00:00 Completed [facility] Influenza Virus Vaccine Quad .5 mL IM 6+ MO 2020-01-21 00:00:00 Completed [facility] Influenza Virus Vaccine Quad .5 mL IM 6+ MO 2020-01-21 00:00:00 Completed [facility] Influenza Virus Vaccine Quad .5 mL IM 6+ MO 2020-01-21 00:00:00 Completed [facility] Influenza Virus Vaccine Quad .5 mL IM 6+ MO 2020-01-21 00:00:00 Completed [facility] Influenza Virus Vaccine Quad .5 mL IM 6+ MO 2020-01-21 00:00:00 Completed [facility] Influenza Virus Vaccine Quad .5 mL IM 6+ MO 2020-01-21 00:00:00 Completed [facility] Influenza Virus Vaccine Quad .5 mL IM 6+ MO 2020-01-21 00:00:00 Completed [facility] Influenza Virus Vaccine Quad .5 mL IM 6+ MO 2020-01-21 00:00:00 Completed [facility] Influenza Virus Vaccine Quad .5 mL IM 6+ MO 2020-01-21 00:00:00 Completed [facility] Influenza Virus Vaccine Quad .5 mL IM 6+ MO 2020-01-21 00:00:00 Completed [facility] Influenza Virus Vaccine Quad .5 mL IM 6+ MO 2020-01-21 00:00:00 Completed [facility] Influenza Virus Vaccine Quad .5 mL IM 6+ MO 2020-01-21 00:00:00 Completed [facility] Influenza Virus Vaccine Quad .5 mL IM 6+ MO 2020-01-21 00:00:00 Completed [facility] Influenza Virus Vaccine Quad .5 mL IM 6+ MO 2020-01-21 00:00:00 Completed [facility] Influenza Virus Vaccine Quad .5 mL IM 6+ MO 2020-01-21 00:00:00 Completed [facility] Influenza Virus Vaccine Quad .5 mL IM 6+ MO 2020-01-21 00:00:00 Completed [facility] Influenza Virus Vaccine Quad .5 mL IM 6+ MO 2020-01-21 00:00:00 Completed [facility] Influenza Virus Vaccine Quad .5 mL IM 6+ MO 2020-01-21 00:00:00 Completed [facility] Influenza Virus Vaccine Quad .5 mL IM 6+ MO 2020-01-21 00:00:00 Completed [facility] Influenza Virus Vaccine Quad .5 mL IM 6+ MO 2020-01-21 00:00:00 Completed [facility] Influenza Virus Vaccine Quad .5 mL IM 6+ MO 2020-01-21 00:00:00 Completed [facility] Influenza Virus Vaccine Quad .5 mL IM 6+ MO 2020-01-21 00:00:00 Completed [facility] Influenza Virus Vaccine Quad .5 mL IM 6+ MO 2020-01-21 00:00:00 Completed [facility] Influenza Virus Vaccine Quad .5 mL IM 6+ MO 2020-01-21 00:00:00 Completed [facility] Influenza Virus Vaccine Quad .5 mL IM 6+ MO 2020-01-21 00:00:00 Completed [facility] Influenza Virus Vaccine Quad .5 mL IM 6+ MO 2020-01-21 00:00:00 Completed [facility] Influenza Virus Vaccine Quad .5 mL IM 6+ MO 2020-01-21 00:00:00 Completed [facility] Influenza Virus Vaccine Quad .5 mL IM 6+ MO 2020-01-21 00:00:00 Completed [facility] Influenza Virus Vaccine Quad .5 mL IM 6+ MO 2020-01-21 00:00:00 Completed [facility] Influenza Virus Vaccine Quad .5 mL IM 6+ MO 2020-01-21 00:00:00 Completed [facility] Influenza Virus Vaccine Quad .5 mL IM 6+ MO 2020-01-21 00:00:00 Completed [facility] Influenza Virus Vaccine Quad .5 mL IM 6+ MO 2020-01-21 00:00:00 Completed [facility] Influenza Virus Vaccine Quad .5 mL IM 6+ MO 2020-01-21 00:00:00 Completed [facility] Influenza Virus Vaccine Quad .5 mL IM 6+ MO 2020-01-21 00:00:00 Completed [facility] Influenza Virus Vaccine Quad .5 mL IM 6+ MO 2020-01-21 00:00:00 Completed [facility] Influenza Virus Vaccine Quad .5 mL IM 6+ MO 2020-01-21 00:00:00 Completed [facility] Influenza Virus Vaccine Quad .5 mL IM 6+ MO 2020-01-21 00:00:00 Completed [facility] Influenza Virus Vaccine Quad .5 mL IM 6+ MO 2020-01-21 00:00:00 Completed [facility] Influenza Virus Vaccine Quad .5 mL IM 6+ MO 2020-01-21 00:00:00 Completed [facility] Influenza Virus Vaccine Quad .5 mL IM 6+ MO 2020-01-21 00:00:00 Completed [facility] Influenza Virus Vaccine Quad .5 mL IM 6+ MO 2020-01-21 00:00:00 Completed [facility] Influenza Virus Vaccine Quad .5 mL IM 6+ MO 2020-01-21 00:00:00 Completed [facility] Influenza Virus Vaccine Quad .5 mL IM 6+ MO 2020-01-21 00:00:00 Completed [facility] Influenza Virus Vaccine Quad .5 mL IM 6+ MO 2020-01-21 00:00:00 Completed [facility] Influenza Virus Vaccine Quad .5 mL IM 6+ MO 2020-01-21 00:00:00 Completed [facility] Influenza Virus Vaccine Quad .5 mL IM 6+ MO 2020-01-21 00:00:00 Completed [facility] Influenza Virus Vaccine Quad .5 mL IM 6+ MO 2020-01-21 00:00:00 Completed [facility] Influenza Virus Vaccine Quad .5 mL IM 6+ MO 2020-01-21 00:00:00 Completed [facility] Influenza Virus Vaccine Quad .5 mL IM 6+ MO 2020-01-21 00:00:00 Completed [facility] Influenza Virus Vaccine Quad .5 mL IM 6+ MO 2020-01-21 00:00:00 Completed [facility] Influenza Virus Vaccine Quad .5 mL IM 6+ MO 2020-01-21 00:00:00 Completed [facility] Influenza Virus Vaccine Quad .5 mL IM 6+ MO 2020-01-21 00:00:00 Completed [facility] Influenza Virus Vaccine Quad .5 mL IM 6+ MO 2020-01-21 00:00:00 Completed [facility] Influenza Virus Vaccine Quad .5 mL IM 6+ MO 2020-01-21 00:00:00 Completed [facility] Influenza Virus Vaccine Quad .5 mL IM 6+ MO 2020-01-21 00:00:00 Completed [facility] Influenza Virus Vaccine Quad .5 mL IM 6+ MO 2020-01-21 00:00:00 Completed [facility] Influenza Virus Vaccine Quad .5 mL IM 6+ MO 2020-01-21 00:00:00 Completed [facility] Influenza Virus Vaccine Quad .5 mL IM 6+ MO 2020-01-21 00:00:00 Completed [facility] Influenza Virus Vaccine Quad .5 mL IM 6+ MO 2020-01-21 00:00:00 Completed [facility] Influenza Virus Vaccine Quad .5 mL IM 6+ MO 2020-01-21 00:00:00 Completed [facility] Meningococcal Vaccine 2018-10-18 00:00:00 Completed [facility] TDAP 2018-10-18 00:00:00 Completed [facility] Meningococcal B, OMV 2018-10-18 00:00:00 Completed [facility] Meningococcal Vaccine 2018-10-18 00:00:00 Completed [facility] TDAP 2018-10-18 00:00:00 Completed [facility] Meningococcal B, OMV 2018-10-18 00:00:00 Completed [facility] Meningococcal Vaccine 2018-10-18 00:00:00 Completed [facility] TDAP 2018-10-18 00:00:00 Completed [facility] Meningococcal B, OMV 2018-10-18 00:00:00 Completed [facility] Meningococcal Vaccine 2018-10-18 00:00:00 Completed [facility] TDAP 2018-10-18 00:00:00 Completed [facility] Meningococcal B, OMV 2018-10-18 00:00:00 Completed [facility] Meningococcal Vaccine 2018-10-18 00:00:00 Completed [facility] TDAP 2018-10-18 00:00:00 Completed [facility] Meningococcal B, OMV 2018-10-18 00:00:00 Completed [facility] Meningococcal Vaccine 2018-10-18 00:00:00 Completed [facility] TDAP 2018-10-18 00:00:00 Completed [facility] Meningococcal B, OMV 2018-10-18 00:00:00 Completed [facility] Meningococcal Vaccine 2018-10-18 00:00:00 Completed [facility] TDAP 2018-10-18 00:00:00 Completed [facility] Meningococcal B, OMV 2018-10-18 00:00:00 Completed [facility] Meningococcal Vaccine 2018-10-18 00:00:00 [facility] [facility] TD[facility] 2018-10-18 00:00:00 Completed [facility] Meningococcal B, OMV 2018-10-18 00:00:00 Completed [facility] Meningococcal Vaccine 2018-10-18 00:00:00 Completed [facility] TDAP 2018-10-18 00:00:00 Completed [facility] Meningococcal B, OMV 2018-10-18 00:00:00 Completed [facility] Meningococcal Vaccine 2018-10-18 00:00:00 Completed [facility] TDAP 2018-10-18 00:00:00 Completed [facility] Meningococcal B, OMV 2018-10-18 00:00:00 Completed [facility] Meningococcal Vaccine 2018-10-18 00:00:00 Completed [facility] TDAP 2018-10-18 00:00:00 Completed [facility] Meningococcal B, OMV 2018-10-18 00:00:00 Completed [facility] Meningococcal Vaccine 2018-10-18 00:00:00 Completed [facility] TDAP 2018-10-18 00:00:00 Completed [facility] Meningococcal B, OMV 2018-10-18 00:00:00 Completed [facility] Meningococcal Vaccine 2018-10-18 00:00:00 Completed [facility] TDAP 2018-10-18 00:00:00 Completed [facility] Meningococcal B, OMV 2018-10-18 00:00:00 Completed [facility] Meningococcal Vaccine 2018-10-18 00:00:00 Completed [facility] TDAP 2018-10-18 00:00:00 Completed [facility] Meningococcal B, OMV 2018-10-18 00:00:00 Completed [facility] Meningococcal Vaccine 2018-10-18 00:00:00 Completed [facility] TDAP 2018-10-18 00:00:00 Completed [facility] Meningococcal B, OMV 2018-10-18 00:00:00 Completed [facility] Meningococcal Vaccine 2018-10-18 00:00:00 Completed [facility] TDAP 2018-10-18 00:00:00 Completed [facility] Meningococcal B, OMV 2018-10-18 00:00:00 Completed [facility] Meningococcal Vaccine 2018-10-18 00:00:00 Completed [facility] TDAP 2018-10-18 00:00:00 Completed [facility] Meningococcal B, OMV 2018-10-18 00:00:00 Completed [facility] Meningococcal Vaccine 2018-10-18 00:00:00 Completed [facility] TDAP 2018-10-18 00:00:00 Completed [facility] Meningococcal B, OMV 2018-10-18 00:00:00 Completed [facility] Meningococcal Vaccine 2018-10-18 00:00:00 Completed [facility] TDAP 2018-10-18 00:00:00 Completed [facility] Meningococcal B, OMV 2018-10-18 00:00:00 Completed [facility] Meningococcal Vaccine 2018-10-18 00:00:00 Completed [facility] TDAP 2018-10-18 00:00:00 Completed [facility] Meningococcal B, OMV 2018-10-18 00:00:00 Completed [facility] Meningococcal Vaccine 2018-10-18 00:00:00 Completed [facility] TDAP 2018-10-18 00:00:00 Completed [facility] Meningococcal B, OMV 2018-10-18 00:00:00 Completed [facility] Meningococcal Vaccine 2018-10-18 00:00:00 Completed [facility] TDAP 2018-10-18 00:00:00 Completed [facility] Meningococcal B, OMV 2018-10-18 00:00:00 Completed [facility] Meningococcal Vaccine 2018-10-18 00:00:00 Completed [facility] TDAP 2018-10-18 00:00:00 Completed [facility] Meningococcal B, OMV 2018-10-18 00:00:00 Completed [facility] Meningococcal Vaccine 2018-10-18 00:00:00 Completed [facility] TDAP 2018-10-18 00:00:00 Completed [facility] Meningococcal B, OMV 2018-10-18 00:00:00 Completed [facility] Meningococcal Vaccine 2018-10-18 00:00:00 Completed [facility] TDAP 2018-10-18 00:00:00 Completed [facility] Meningococcal B, OMV 2018-10-18 00:00:00 Completed [facility] Meningococcal Vaccine 2018-10-18 00:00:00 Completed [facility] TDAP 2018-10-18 00:00:00 Completed [facility] Meningococcal B, OMV 2018-10-18 00:00:00 Completed [facility] Meningococcal Vaccine 2018-10-18 00:00:00 Completed [facility] TDAP 2018-10-18 00:00:00 Completed [facility] Meningococcal B, OMV 2018-10-18 00:00:00 Completed [facility] Meningococcal Vaccine 2018-10-18 00:00:00 Completed [facility] TDAP 2018-10-18 00:00:00 Completed [facility] Meningococcal B, OMV 2018-10-18 00:00:00 Completed [facility] Meningococcal Vaccine 2018-10-18 00:00:00 Completed [facility] TDAP 2018-10-18 00:00:00 Completed [facility] Meningococcal B, OMV 2018-10-18 00:00:00 Completed [facility] Meningococcal Vaccine 2018-10-18 00:00:00 Completed [facility] TDAP 2018-10-18 00:00:00 Completed [facility] Meningococcal B, OMV 2018-10-18 00:00:00 Completed [facility] Meningococcal Vaccine 2018-10-18 00:00:00 Completed [facility] TDAP 2018-10-18 00:00:00 Completed [facility] Meningococcal B, OMV 2018-10-18 00:00:00 Completed [facility] Meningococcal Vaccine 2018-10-18 00:00:00 Completed [facility] TDAP 2018-10-18 00:00:00 Completed [facility] Meningococcal B, OMV 2018-10-18 00:00:00 Completed [facility] Meningococcal Vaccine 2018-10-18 00:00:00 Completed [facility] TDAP 2018-10-18 00:00:00 Completed [facility] Meningococcal B, OMV 2018-10-18 00:00:00 Completed [facility] Meningococcal Vaccine 2018-10-18 00:00:00 Completed [facility] TDAP 2018-10-18 00:00:00 Completed [facility] Meningococcal B, OMV 2018-10-18 00:00:00 Completed [facility] Meningococcal Vaccine 2018-10-18 00:00:00 Completed [facility] TDAP 2018-10-18 00:00:00 Completed [facility] Meningococcal B, OMV 2018-10-18 00:00:00 Completed [facility] Meningococcal Vaccine 2018-10-18 00:00:00 Completed [facility] TDAP 2018-10-18 00:00:00 Completed [facility] Meningococcal B, OMV 2018-10-18 00:00:00 Completed [facility] Meningococcal Vaccine 2018-10-18 00:00:00 Completed [facility] TDAP 2018-10-18 00:00:00 Completed [facility] Meningococcal B, OMV 2018-10-18 00:00:00 Completed [facility] Meningococcal Vaccine 2018-10-18 00:00:00 Completed [facility] TDAP 2018-10-18 00:00:00 Completed [facility] Meningococcal B, OMV 2018-10-18 00:00:00 Completed [facility] Meningococcal Polysaccharide (groups A, C, Y and W-135) conjugate vaccine (MCV4P) 2018-10-18 00:00:00 Completed [facility] Meningococcal Vaccine 2018-10-18 00:00:00 Completed [facility] TDAP 2018-10-18 00:00:00 Completed [facility] Meningococcal B, OMV 2018-10-18 00:00:00 Completed [facility] Meningococcal Polysaccharide (groups A, C, Y and W-135) conjugate vaccine (MCV4P) 2018-10-18 00:00:00 Completed [facility] Meningococcal Vaccine 2018-10-18 00:00:00 Completed [facility] TDAP 2018-10-18 00:00:00 Completed [facility] Meningococcal B, OMV 2018-10-18 00:00:00 Completed [facility] Meningococcal Polysaccharide (groups A, C, Y and W-135) conjugate vaccine (MCV4P) 2018-10-18 00:00:00 Completed [facility] Meningococcal Vaccine 2018-10-18 00:00:00 Completed [facility] TDAP 2018-10-18 00:00:00 Completed [facility] Meningococcal B, OMV 2018-10-18 00:00:00 Completed [facility] Meningococcal Polysaccharide (groups A, C, Y and W-135) conjugate vaccine (MCV4P) 2018-10-18 00:00:00 Completed [facility] Meningococcal Vaccine 2018-10-18 00:00:00 Completed [facility] TDAP 2018-10-18 00:00:00 Completed [facility] Meningococcal B, OMV 2018-10-18 00:00:00 Completed [facility] Meningococcal Polysaccharide (groups A, C, Y and W-135) conjugate vaccine (MCV4P) 2018-10-18 00:00:00 Completed [facility] Meningococcal Vaccine 2018-10-18 00:00:00 Completed [facility] TDAP 2018-10-18 00:00:00 Completed [facility] Meningococcal B, OMV 2018-10-18 00:00:00 Completed [facility] Meningococcal Polysaccharide (groups A, C, Y and W-135) conjugate vaccine (MCV4P) 2018-10-18 00:00:00 Completed [facility] Meningococcal Vaccine 2018-10-18 00:00:00 Completed [facility] TDAP 2018-10-18 00:00:00 Completed [facility] Meningococcal B, OMV 2018-10-18 00:00:00 Completed [facility] Meningococcal Polysaccharide (groups A, C, Y and W-135) conjugate vaccine (MCV4P) 2018-10-18 00:00:00 Completed [facility] Meningococcal Vaccine 2018-10-18 00:00:00 Completed [facility] TDAP 2018-10-18 00:00:00 Completed [facility] Meningococcal B, OMV 2018-10-18 00:00:00 Completed [facility] Meningococcal Polysaccharide (groups A, C, Y and W-135) conjugate vaccine (MCV4P) 2018-10-18 00:00:00 Completed [facility] Meningococcal Vaccine 2018-10-18 00:00:00 Completed [facility] TDAP 2018-10-18 00:00:00 Completed [facility] Meningococcal B, OMV 2018-10-18 00:00:00 Completed [facility] Meningococcal Polysaccharide (groups A, C, Y and W-135) conjugate vaccine (MCV4P) 2018-10-18 00:00:00 Completed [facility] Meningococcal Vaccine 2018-10-18 00:00:00 Completed [facility] TDAP 2018-10-18 00:00:00 Completed [facility] Meningococcal B, OMV 2018-10-18 00:00:00 Completed [facility] Meningococcal Polysaccharide (groups A, C, Y and W-135) conjugate vaccine (MCV4P) 2018-10-18 00:00:00 Completed [facility] Meningococcal Vaccine 2018-10-18 00:00:00 Completed [facility] TDAP 2018-10-18 00:00:00 Completed [facility] Meningococcal B, OMV 2018-10-18 00:00:00 Completed [facility] Meningococcal Polysaccharide (groups A, C, Y and W-135) conjugate vaccine (MCV4P) 2018-10-18 00:00:00 Completed [facility] Meningococcal Vaccine 2018-10-18 00:00:00 Completed [facility] TDAP 2018-10-18 00:00:00 Completed [facility] Meningococcal B, OMV 2018-10-18 00:00:00 Completed [facility] Meningococcal Polysaccharide (groups A, C, Y and W-135) conjugate vaccine (MCV4P) 2018-10-18 00:00:00 Completed [facility] Meningococcal Vaccine 2018-10-18 00:00:00 Completed [facility] TDAP 2018-10-18 00:00:00 Completed [facility] Meningococcal B, OMV 2018-10-18 00:00:00 Completed [facility] Meningococcal Polysaccharide (groups A, C, Y and W-135) conjugate vaccine (MCV4P) 2018-10-18 00:00:00 Completed [facility] Meningococcal Vaccine 2018-10-18 00:00:00 Completed [facility] TDAP 2018-10-18 00:00:00 Completed [facility] Meningococcal B, OMV 2018-10-18 00:00:00 Completed [facility] Meningococcal Polysaccharide (groups A, C, Y and W-135) conjugate vaccine (MCV4P) 2018-10-18 00:00:00 Completed [facility] Meningococcal Vaccine 2018-10-18 00:00:00 Completed [facility] TDAP 2018-10-18 00:00:00 Completed [facility] Meningococcal B, OMV 2018-10-18 00:00:00 Completed [facility] Meningococcal Polysaccharide (groups A, C, Y and W-135) conjugate vaccine (MCV4P) 2018-10-18 00:00:00 Completed [facility] Meningococcal Vaccine 2018-10-18 00:00:00 Completed [facility] TDAP 2018-10-18 00:00:00 Completed [facility] Meningococcal B, OMV 2018-10-18 00:00:00 Completed [facility] Meningococcal Polysaccharide (groups A, C, Y and W-135) conjugate vaccine (MCV4P) 2018-10-18 00:00:00 Completed [facility] Meningococcal Vaccine 2018-10-18 00:00:00 Completed [facility] TDAP 2018-10-18 00:00:00 Completed [facility] Meningococcal B, OMV 2018-10-18 00:00:00 Completed [facility] Meningococcal Polysaccharide (groups A, C, Y and W-135) conjugate vaccine (MCV4P) 2018-10-18 00:00:00 Completed [facility] Meningococcal Vaccine 2018-10-18 00:00:00 Completed [facility] TDAP 2018-10-18 00:00:00 Completed [facility] Meningococcal B, OMV 2018-10-18 00:00:00 Completed [facility] Meningococcal Polysaccharide (groups A, C, Y and W-135) conjugate vaccine (MCV4P) 2018-10-18 00:00:00 Completed [facility] Meningococcal Vaccine 2018-10-18 00:00:00 Completed [facility] TDAP 2018-10-18 00:00:00 Completed [facility] Meningococcal B, OMV 2018-10-18 00:00:00 Completed [facility] Meningococcal Polysaccharide (groups A, C, Y and W-135) conjugate vaccine (MCV4P) 2018-10-18 00:00:00 Completed [facility] Meningococcal Vaccine 2018-10-18 00:00:00 Completed [facility] TDAP 2018-10-18 00:00:00 Completed [facility] Meningococcal B, OMV 2018-10-18 00:00:00 Completed [facility] Meningococcal Polysaccharide (groups A, C, Y and W-135) conjugate vaccine (MCV4P) 2018-10-18 00:00:00 Completed [facility] Meningococcal Vaccine 2018-10-18 00:00:00 Completed [facility] TDAP 2018-10-18 00:00:00 Completed [facility] Meningococcal B, OMV 2018-10-18 00:00:00 Completed [facility] Meningococcal Polysaccharide (groups A, C, Y and W-135) conjugate vaccine (MCV4P) 2018-10-18 00:00:00 Completed [facility] Meningococcal Vaccine 2018-10-18 00:00:00 Completed [facility] TDAP 2018-10-18 00:00:00 Completed [facility] Meningococcal B, OMV 2018-10-18 00:00:00 Completed [facility] Meningococcal Polysaccharide (groups A, C, Y and W-135) conjugate vaccine (MCV4P) 2018-10-18 00:00:00 Completed [facility] Meningococcal Vaccine 2018-10-18 00:00:00 Completed [facility] TDAP 2018-10-18 00:00:00 Completed [facility] Meningococcal B, OMV 2018-10-18 00:00:00 Completed [facility] Meningococcal Polysaccharide (groups A, C, Y and W-135) conjugate vaccine (MCV4P) 2018-10-18 00:00:00 Completed [facility] Meningococcal Vaccine 2018-10-18 00:00:00 Completed [facility] TDAP 2018-10-18 00:00:00 Completed [facility] Meningococcal B, OMV 2018-10-18 00:00:00 Completed [facility] Meningococcal Polysaccharide (groups A, C, Y and W-135) conjugate vaccine (MCV4P) 2018-10-18 00:00:00 Completed [facility] Meningococcal Vaccine 2018-10-18 00:00:00 Completed [facility] TDAP 2018-10-18 00:00:00 Completed [facility] Meningococcal B, OMV 2018-10-18 00:00:00 Completed [facility] Meningococcal Polysaccharide (groups A, C, Y and W-135) conjugate vaccine (MCV4P) 2018-10-18 00:00:00 Completed [facility] Meningococcal Vaccine 2018-10-18 00:00:00 Completed [facility] TDAP 2018-10-18 00:00:00 Completed [facility] Meningococcal B, OMV 2018-10-18 00:00:00 Completed [facility] Meningococcal Polysaccharide (groups A, C, Y and W-135) conjugate vaccine (MCV4P) 2018-10-18 00:00:00 Completed [facility] DTAP 2006-10-25 00:00:00 Completed [facility] Hepatitis A Adult 2006-10-25 00:00:00 Completed [facility] Polio (IPV/OPV) 2006-10-25 00:00:00 Completed [facility] DTAP 2006-10-25 00:00:00 Completed [facility] Hepatitis A Adult 2006-10-25 00:00:00 Completed [facility] Polio (IPV/OPV) 2006-10-25 00:00:00 Completed [facility] DTAP 2006-10-25 00:00:00 Completed [facility] Hepatitis A Adult 2006-10-25 00:00:00 Completed [facility] Polio (IPV/OPV) 2006-10-25 00:00:00 Completed [facility] DTAP 2006-10-25 00:00:00 Completed [facility] Hepatitis A Adult 2006-10-25 00:00:00 Completed [facility] Polio (IPV/OPV) 2006-10-25 00:00:00 Completed [facility] DTAP 2006-10-25 00:00:00 Completed [facility] Hepatitis A Adult 2006-10-25 00:00:00 Completed [facility] Polio (IPV/OPV) 2006-10-25 00:00:00 Completed [facility] DTAP 2006-10-25 00:00:00 Completed [facility] Hepatitis A Adult 2006-10-25 00:00:00 Completed [facility] Polio (IPV/OPV) 2006-10-25 00:00:00 Completed [facility] DTAP 2006-10-25 00:00:00 Completed [facility] Hepatitis A Adult 2006-10-25 00:00:00 Completed [facility] Polio (IPV/OPV) 2006-10-25 00:00:00 Completed [facility] DTAP 2006-10-25 00:00:00 Completed [facility] Hepatitis A Adult 2006-10-25 00:00:00 Completed [facility] Polio (IPV/OPV) 2006-10-25 00:00:00 Completed [facility] DTAP 2006-10-25 00:00:00 Completed [facility] Hepatitis A Adult 2006-10-25 00:00:00 Completed [facility] Polio (IPV/OPV) 2006-10-25 00:00:00 Completed [facility] DTAP 2006-10-25 00:00:00 Completed [facility] Hepatitis A Adult 2006-10-25 00:00:00 Completed [facility] Polio (IPV/OPV) 2006-10-25 00:00:00 Completed [facility] DTAP 2006-10-25 00:00:00 Completed [facility] Hepatitis A Adult 2006-10-25 00:00:00 Completed [facility] Polio (IPV/OPV) 2006-10-25 00:00:00 Completed [facility] DTAP 2006-10-25 00:00:00 Completed [facility] Hepatitis A Adult 2006-10-25 00:00:00 Completed [facility] Polio (IPV/OPV) 2006-10-25 00:00:00 Completed [facility] DTAP 2006-10-25 00:00:00 Completed [facility] Hepatitis A Adult 2006-10-25 00:00:00 Completed [facility] Polio (IPV/OPV) 2006-10-25 00:00:00 Completed [facility] DTAP 2006-10-25 00:00:00 Completed [facility] Hepatitis A Adult 2006-10-25 00:00:00 Completed [facility] Polio (IPV/OPV) 2006-10-25 00:00:00 Completed [facility] DTAP 2006-10-25 00:00[facility] [facility] Hepatitis A Adult 2006-10-25 00:00:00 Completed [facility] Polio (IPV/OPV) 2006-10-25 00:00:00 Completed [facility] DTAP 2006-10-25 00:00:00 Completed [facility] Hepatitis A Adult 2006-10-25 00:00:00 Completed [facility] Polio (IPV/OPV) 2006-10-25 00:00:00 Completed [facility] DTAP 2006-10-25 00:00:00 Completed [facility] Hepatitis A Adult 2006-10-25 00:00:00 Completed [facility] Polio (IPV/OPV) 2006-10-25 00:00:00 Completed [facility] DTAP 2006-10-25 00:00:00 Completed [facility] Hepatitis A Adult 2006-10-25 00:00:00 Completed [facility] Polio (IPV/OPV) 2006-10-25 00:00:00 Completed [facility] DTAP 2006-10-25 00:00:00 Completed [facility] Hepatitis A Adult 2006-10-25 00:00:00 Completed [facility] Polio (IPV/OPV) 2006-10-25 00:00:00 Completed [facility] DTAP 2006-10-25 00:00:00 Completed [facility] Hepatitis A Adult 2006-10-25 00:00:00 Completed [facility] Polio (IPV/OPV) 2006-10-25 00:00:00 Completed [facility] DTAP 2006-10-25 00:00:00 Completed [facility] Hepatitis A Adult 2006-10-25 00:00:00 Completed [facility] Polio (IPV/OPV) 2006-10-25 00:00:00 Completed [facility] DTAP 2006-10-25 00:00:00 Completed [facility] Hepatitis A Adult 2006-10-25 00:00:00 Completed [facility] Polio (IPV/OPV) 2006-10-25 00:00:00 Completed [facility] DTAP 2006-10-25 00:00:00 Completed [facility] Hepatitis A Adult 2006-10-25 00:00:00 Completed [facility] Polio (IPV/OPV) 2006-10-25 00:00:00 Completed [facility] DTAP 2006-10-25 00:00:00 Completed [facility] Hepatitis A Adult 2006-10-25 00:00:00 Completed [facility] Polio (IPV/OPV) 2006-10-25 00:00:00 Completed [facility] DTAP 2006-10-25 00:00:00 Completed [facility] Hepatitis A Adult 2006-10-25 00:00:00 Completed [facility] Polio (IPV/OPV) 2006-10-25 00:00:00 Completed [facility] DTAP 2006-10-25 00:00:00 Completed [facility] Hepatitis A Adult 2006-10-25 00:00:00 Completed [facility] Polio (IPV/OPV) 2006-10-25 00:00:00 Completed [facility] DTAP 2006-10-25 00:00:00 Completed [facility] Hepatitis A Adult 2006-10-25 00:00:00 Completed [facility] Polio (IPV/OPV) 2006-10-25 00:00:00 Completed [facility] DTAP 2006-10-25 00:00:00 Completed [facility] Hepatitis A Adult 2006-10-25 00:00:00 Completed [facility] Polio (IPV/OPV) 2006-10-25 00:00:00 Completed [facility] DTAP 2006-10-25 00:00:00 Completed [facility] Hepatitis A Adult 2006-10-25 00:00:00 Completed [facility] Polio (IPV/OPV) 2006-10-25 00:00:00 Completed [facility] DTAP 2006-10-25 00:00:00 Completed [facility] Hepatitis A Adult 2006-10-25 00:00:00 Completed [facility] Polio (IPV/OPV) 2006-10-25 00:00:00 Completed [facility] DTAP 2006-10-25 00:00:00 Completed [facility] Hepatitis A Adult 2006-10-25 00:00:00 Completed [facility] Polio (IPV/OPV) 2006-10-25 00:00:00 Completed [facility] DTAP 2006-10-25 00:00:00 Completed [facility] Hepatitis A Adult 2006-10-25 00:00:00 Completed [facility] Polio (IPV/OPV) 2006-10-25 00:00:00 Completed [facility] DTAP 2006-10-25 00:00:00 Completed [facility] Hepatitis A Adult 2006-10-25 00:00:00 Completed [facility] Polio (IPV/OPV) 2006-10-25 00:00:00 Completed [facility] DTAP 2006-10-25 00:00:00 Completed [facility] Hepatitis A Adult 2006-10-25 00:00:00 Completed [facility] Polio (IPV/OPV) 2006-10-25 00:00:00 Completed [facility] DTAP 2006-10-25 00:00:00 Completed [facility] Hepatitis A Adult 2006-10-25 00:00:00 Completed [facility] Polio (IPV/OPV) 2006-10-25 00:00:00 Completed [facility] DTAP 2006-10-25 00:00:00 Completed [facility] Hepatitis A Adult 2006-10-25 00:00:00 Completed [facility] Polio (IPV/OPV) 2006-10-25 00:00:00 Completed [facility] DTAP 2006-10-25 00:00:00 Completed [facility] Hepatitis A Adult 2006-10-25 00:00:00 Completed [facility] Polio (IPV/OPV) 2006-10-25 00:00:00 Completed [facility] DTAP 2006-10-25 00:00:00 Completed [facility] Hepatitis A Adult 2006-10-25 00:00:00 Completed [facility] Polio (IPV/OPV) 2006-10-25 00:00:00 Completed [facility] DTaP, Unspecified Formulation 2006-10-25 00:00:00 Completed [facility] HEPA,NOS 2006-10-25 00:00:00 Completed [facility] IPV 2006-10-25 00:00:00 Completed [facility] DTAP 2006-10-25 00:00:00 Completed [facility] Hepatitis A Adult 2006-10-25 00:00:00 Completed [facility] Polio (IPV/OPV) 2006-10-25 00:00:00 Completed [facility] DTaP, Unspecified Formulation 2006-10-25 00:00:00 Completed [facility] HEPA,NOS 2006-10-25 00:00:00 Completed [facility] IPV 2006-10-25 00:00:00 Completed [facility] DTAP 2006-10-25 00:00:00 Completed [facility] Hepatitis A Adult 2006-10-25 00:00:00 Completed [facility] Polio (IPV/OPV) 2006-10-25 00:00:00 Completed [facility] DTaP, Unspecified Formulation 2006-10-25 00:00:00 Completed [facility] HEPA,NOS 2006-10-25 00:00:00 Completed [facility] IPV 2006-10-25 00:00:00 Completed [facility] DTAP 2006-10-25 00:00:00 Completed [facility] Hepatitis A Adult 2006-10-25 00:00:00 Completed [facility] Polio (IPV/OPV) 2006-10-25 00:00:00 Completed [facility] DTaP, Unspecified Formulation 2006-10-25 00:00:00 Completed [facility] HEPA,NOS 2006-10-25 00:00:00 Completed [facility] IPV 2006-10-25 00:00:00 Completed [facility] DTAP 2006-10-25 00:00:00 Completed [facility] Hepatitis A Adult 2006-10-25 00:00:00 Completed [facility] Polio (IPV/OPV) 2006-10-25 00:00:00 Completed [facility] DTaP, Unspecified Formulation 2006-10-25 00:00:00 Completed [facility] HEPA,NOS 2006-10-25 00:00:00 Completed [facility] IPV 2006-10-25 00:00:00 Completed [facility] DTAP 2006-10-25 00:00:00 Completed [facility] Hepatitis A Adult 2006-10-25 00:00:00 Completed [facility] Polio (IPV/OPV) 2006-10-25 00:00:00 Completed [facility] DTaP, Unspecified Formulation 2006-10-25 00:00:00 Completed [facility] HEPA,NOS 2006-10-25 00:00:00 Completed [facility] IPV 2006-10-25 00:00:00 Completed [facility] DTAP 2006-10-25 00:00:00 Completed [facility] Hepatitis A Adult 2006-10-25 00:00:00 Completed [facility] Polio (IPV/OPV) 2006-10-25 00:00:00 Completed [facility] DTaP, Unspecified Formulation 2006-10-25 00:00:00 Completed [facility] HEPA,NOS 2006-10-25 00:00:00 Completed [facility] IPV 2006-10-25 00:00:00 Completed [facility] DTAP 2006-10-25 00:00:00 Completed [facility] Hepatitis A Adult 2006-10-25 00:00:00 Completed [facility] Polio (IPV/OPV) 2006-10-25 00:00:00 Completed [facility] DTaP, Unspecified Formulation 2006-10-25 00:00:00 Completed [facility] HEPA,NOS 2006-10-25 00:00:00 Completed [facility] IPV 2006-10-25 00:00:00 Completed [facility] DTAP 2006-10-25 00:00:00 Completed [facility] Hepatitis A Adult 2006-10-25 00:00:00 Completed [facility] Polio (IPV/OPV) 2006-10-25 00:00:00 Completed [facility] DTaP, Unspecified Formulation 2006-10-25 00:00:00 Completed [facility] HEPA,NOS 2006-10-25 00:00:00 Completed [facility] IPV 2006-10-25 00:00:00 Completed [facility] DTAP 2006-10-25 00:00:00 Completed [facility] Hepatitis A Adult 2006-10-25 00:00:00 Completed [facility] Polio (IPV/OPV) 2006-10-25 00:00:00 Completed [facility] DTaP, Unspecified Formulation 2006-10-25 00:00:00 Completed [facility] HEPA,NOS 2006-10-25 00:00:00 Completed [facility] IPV 2006-10-25 00:00:00 Completed [facility] DTAP 2006-10-25 00:00:00 Completed [facility] Hepatitis A Adult 2006-10-25 00:00:00 Completed [facility] Polio (IPV/OPV) 2006-10-25 00:00:00 Completed [facility] DTaP, Unspecified Formulation 2006-10-25 00:00:00 Completed [facility] HEPA,NOS 2006-10-25 00:00:00 Completed [facility] IPV 2006-10-25 00:00:00 Completed [facility] DTAP 2006-10-25 00:00:00 Completed [facility] Hepatitis A Adult 2006-10-25 00:00:00 Completed [facility] Polio (IPV/OPV) 2006-10-25 00:00:00 Completed [facility] DTaP, Unspecified Formulation 2006-10-25 00:00:00 Completed [facility] HEPA,NOS 2006-10-25 00:00:00 Completed [facility] IPV 2006-10-25 00:00:00 Completed [facility] DTAP 2006-10-25 00:00:00 Completed [facility] Hepatitis A Adult 2006-10-25 00:00:00 Completed [facility] Polio (IPV/OPV) 2006-10-25 00:00:00 Completed [facility] DTaP, Unspecified Formulation 2006-10-25 00:00:00 Completed [facility] HEPA,NOS 2006-10-25 00:00:00 Completed [facility] IPV 2006-10-25 00:00:00 Completed [facility] DTAP 2006-10-25 00:00:00 Completed [facility] Hepatitis A Adult 2006-10-25 00:00:00 Completed [facility] Polio (IPV/OPV) 2006-10-25 00:00:00 Completed [facility] DTaP, Unspecified Formulation 2006-10-25 00:00:00 Completed [facility] HEPA,NOS 2006-10-25 00:00:00 Completed [facility] IPV 2006-10-25 00:00:00 Completed [facility] DTAP 2006-10-25 00:00:00 Completed [facility] Hepatitis A Adult 2006-10-25 00:00:00 Completed [facility] Polio (IPV/OPV) 2006-10-25 00:00:00 Completed [facility] DTaP, Unspecified Formulation 2006-10-25 00:00:00 Completed [facility] HEPA,NOS 2006-10-25 00:00:00 Completed [facility] IPV 2006-10-25 00:00:00 Completed [facility] DTAP 2006-10-25 00:00:00 Completed [facility] Hepatitis A Adult 2006-10-25 00:00:00 Completed [facility] Polio (IPV/OPV) 2006-10-25 00:00:00 Completed [facility] DTaP, Unspecified Formulation 2006-10-25 00:00:00 Completed [facility] HEPA,NOS 2006-10-25 00:00:00 Completed [facility] IPV 2006-10-25 00:00:00 Completed [facility] DTAP 2006-10-25 00:00:00 Completed [facility] Hepatitis A Adult 2006-10-25 00:00:00 Completed [facility] Polio (IPV/OPV) 2006-10-25 00:00:00 Completed [facility] DTaP, Unspecified Formulation 2006-10-25 00:00:00 Completed [facility] HEPA,NOS 2006-10-25 00:00:00 Completed [facility] IPV 2006-10-25 00:00:00 Completed [facility] DTAP 2006-10-25 00:00:00 Completed [facility] Hepatitis A Adult 2006-10-25 00:00:00 Completed [facility] Polio (IPV/OPV) 2006-10-25 00:00:00 Completed [facility] DTaP, Unspecified Formulation 2006-10-25 00:00:00 Completed [facility] HEPA,NOS 2006-10-25 00:00:00 Completed [facility] IPV 2006-10-25 00:00:00 Completed [facility] DTAP 2006-10-25 00:00:00 Completed [facility] Hepatitis A Adult 2006-10-25 00:00:00 Completed [facility] Polio (IPV/OPV) 2006-10-25 00:00:00 Completed [facility] DTaP, Unspecified Formulation 2006-10-25 00:00:00 Completed [facility] HEPA,NOS 2006-10-25 00:00:00 Completed [facility] IPV 2006-10-25 00:00:00 Completed [facility] DTAP 2006-10-25 00:00:00 Completed [facility] Hepatitis A Adult 2006-10-25 00:00:00 Completed [facility] Polio (IPV/OPV) 2006-10-25 00:00:00 Completed [facility] DTaP, Unspecified Formulation 2006-10-25 00:00:00 Completed [facility] HEPA,NOS 2006-10-25 00:00:00 Completed [facility] IPV 2006-10-25 00:00:00 Completed [facility] DTAP 2006-10-25 00:00:00 Completed [facility] Hepatitis A Adult 2006-10-25 00:00:00 Completed [facility] Polio (IPV/OPV) 2006-10-25 00:00:00 Completed [facility] DTaP, Unspecified Formulation 2006-10-25 00:00:00 Completed [facility] HEPA,NOS 2006-10-25 00:00:00 Completed [facility] IPV 2006-10-25 00:00:00 Completed [facility] DTAP 2006-10-25 00:00:00 Completed [facility] Hepatitis A Adult 2006-10-25 00:00:00 Completed [facility] Polio (IPV/OPV) 2006-10-25 00:00:00 Completed [facility] DTaP, Unspecified Formulation 2006-10-25 00:00:00 Completed [facility] HEPA,NOS 2006-10-25 00:00:00 Completed [facility] IPV 2006-10-25 00:00:00 Completed [facility] DTAP 2006-10-25 00:00:00 Completed [facility] Hepatitis A Adult 2006-10-25 00:00:00 Completed [facility] Polio (IPV/OPV) 2006-10-25 00:00:00 Completed [facility] DTaP, Unspecified Formulation 2006-10-25 00:00:00 Completed [facility] HEPA,NOS 2006-10-25 00:00:00 Completed [facility] IPV 2006-10-25 00:00:00 Completed [facility] DTAP 2006-10-25 00:00:00 Completed [facility] Hepatitis A Adult 2006-10-25 00:00:00 Completed [facility] Polio (IPV/OPV) 2006-10-25 00:00:00 Completed [facility] DTaP, Unspecified Formulation 2006-10-25 00:00:00 Completed [facility] HEPA,NOS 2006-10-25 00:00:00 Completed [facility] IPV 2006-10-25 00:00:00 Completed [facility] DTAP 2006-10-25 00:00:00 Completed [facility] Hepatitis A Adult 2006-10-25 00:00:00 Completed [facility] Polio (IPV/OPV) 2006-10-25 00:00:00 Completed [facility] DTaP, Unspecified Formulation 2006-10-25 00:00:00 Completed [facility] HEPA,NOS 2006-10-25 00:00:00 Completed [facility] IPV 2006-10-25 00:00:00 Completed [facility] DTAP 2006-10-25 00:00:00 Completed [facility] Hepatitis A Adult 2006-10-25 00:00:00 Completed [facility] Polio (IPV/OPV) 2006-10-25 00:00:00 Completed [facility] DTaP, Unspecified Formulation 2006-10-25 00:00:00 Completed [facility] HEPA,NOS 2006-10-25 00:00:00 Completed [facility] IPV 2006-10-25 00:00:00 Completed [facility] DTAP 2005-09-20 00:00:00 Completed [facility] HIB 3 Dose Schedule 2005-09-20 00:00:00 Completed [facility] Hepatitis A Adult 2005-09-20 00:00:00 Completed [facility] Hep B, Adol or Pedi Dosage 2005-09-20 00:00:00 Completed [facility] Pneumococcal 13 Conjugate, PCV13 (Prevnar 13) 2005-09-20 00:00:00 Completed [facility] Polio (IPV/OPV) 2005-09-20 00:00:00 Completed [facility] DTAP 2005-09-20 00:00:00 Completed [facility] HIB 3 Dose Schedule 2005-09-20 00:00:00 Completed [facility] Hepatitis A Adult 2005-09-20 00:00:00 Completed [facility] Hep B, Adol or Pedi Dosage 2005-09-20 00:00:00 Completed [facility] Pneumococcal 13 Conjugate, PCV13 (Prevnar 13) 2005-09-20 00:00:00 Completed [facility] Polio (IPV/OPV) 2005-09-20 00:00:00 Completed [facility] DTAP 2005-09-20 00:00:00 Completed [facility] HIB 3 Dose Schedule 2005-09-20 00:00:00 Completed [facility] Hepatitis A Adult 2005-09-20 00:00:00 Completed [facility] Hep B, Adol or Pedi Dosage 2005-09-20 00:00:00 Completed [facility] Pneumococcal 13 Conjugate, PCV13 (Prevnar 13) 2005-09-20 00:00:00 Completed [facility] Polio (IPV/OPV) 2005-09-20 00:00:00 Completed [facility] DTAP 2005-09-20 00:00:00 Completed [facility] HIB 3 Dose Schedule 2005-09-20 00:00:00 Completed [facility] Hepatitis A Adult 2005-09-20 00:00:00 Completed [facility] Hep B, Adol or Pedi Dosage 2005-09-20 00:00:00 Completed [facility] Pneumococcal 13 Conjugate, PCV13 (Prevnar 13) 2005-09-20 00:00:00 Completed [facility] Polio (IPV/OPV) 2005-09-20 00:00:00 Completed [facility] DTAP 2005-09-20 00:00:00 Completed [facility] HIB 3 Dose Schedule 2005-09-20 00:00:00 Completed [facility] Hepatitis A Adult 2005-09-20 00:00:00 Completed [facility] Hep B, Adol or Pedi Dosage 2005-09-20 00:00:00 Completed [facility] Pneumococcal 13 Conjugate, PCV13 (Prevnar 13) 2005-09-20 00:00:00 Completed [facility] Polio (IPV/OPV) 2005-09-20 00:00:00 Completed [facility] DTAP 2005-09-20 00:00:00 Completed [facility] HIB 3 Dose Schedule 2005-09-20 00:00:00 Completed [facility] Hepatitis A Adult 2005-09-20 00:00:00 Completed [facility] Hep B, Adol or Pedi Dosage 2005-09-20 00:00:00 Completed [facility] Pneumococcal 13 Conjugate, PCV13 (Prevnar 13) 2005-09-20 00:00:00 Completed [facility] Polio (IPV/OPV) 2005-09-20 00:00:00 Completed [facility] DTAP 2005-09-20 00:00:00 Completed [facility] HIB 3 Dose Schedule 2005-09-20 00:00:00 Completed [facility] Hepatitis A Adult 2005-09-20 00:00:00 Completed [facility] Hep B, Adol or Pedi Dosage 2005-09-20 00:00:00 Completed [facility] Pneumococcal 13 Conjugate, PCV13 (Prevnar 13) 2005-09-20 00:00:00 Completed [facility] Polio (IPV/OPV) 2005-09-20 00:00:00 Completed [facility] DTAP 2005-09-20 00:00:00 Completed [facility] HIB 3 Dose Schedule 2005-09-20 00:00:00 Completed [facility] Hepatitis A Adult 2005-09-20 00:00:00 Completed [facility] Hep B, Adol or Pedi Dosage 2005-09-20 00:00:00 Completed [facility] Pneumococcal 13 Conjugate, PCV13 (Prevnar 13) 2005-09-20 00:00:00 Completed [facility] Polio (IPV/OPV) 2005-09-20 00:00:00 Completed [facility] DTAP 2005-09-20 00:00:00 Completed [facility] HIB 3 Dose Schedule 2005-09-20 00:00:00 Completed [facility] Hepatitis A Adult 2005-09-20 00:00:00 Completed [facility] Hep B, Adol or Pedi Dosage 2005-09-20 00:00:00 Completed [facility] Pneumococcal 13 Conjugate, PCV13 (Prevnar 13) 2005-09-20 00:00:00 Completed [facility] Polio (IPV/OPV) 2005-09-20 00:00:00 Completed [facility] DTAP 2005-09-20 00:00:00 Completed [facility] HIB 3 Dose Schedule 2005-09-20 00:00:00 Completed [facility] Hepatitis A Adult 2005-09-20 00:00:00 Completed [facility] Hep B, Adol or Pedi Dosage 2005-09-20 00:00:00 Completed [facility] Pneumococcal 13 Conjugate, PCV13 (Prevnar 13) 2005-09-20 00:00:00 Completed [facility] Polio (IPV/OPV) 2005-09-20 00:00:00 Completed [facility] DTAP 2005-09-20 00:00:00 Completed [facility] HIB 3 Dose Schedule 2005-09-20 00:00:00 Completed [facility] Hepatitis A Adult 2005-09-20 00:00:00 Completed [facility] Hep B, Adol or Pedi Dosage 2005-09-20 00:00:00 Completed [facility] Pneumococcal 13 Conjugate, PCV13 (Prevnar 13) 2005-09-20 00:00:00 Completed [facility] Polio (IPV/OPV) 2005-09-20 00:00:00 Completed [facility] DTAP 2005-09-20 00:00:00 Completed [facility] HIB 3 Dose Schedule 2005-09-20 00:00:00 Completed [facility] Hepatitis A Adult 2005-09-20 00:00:00 Completed [facility] Hep B, Adol or Pedi Dosage 2005-09-20 00:00:00 Completed [facility] Pneumococcal 13 Conjugate, PCV13 (Prevnar 13) 2005-09-20 00:00:00 Completed [facility] Polio (IPV/OPV) 2005-09-20 00:00:00 Completed [facility] DTAP 2005-09-20 00:00:00 Completed [facility] HIB 3 Dose Schedule 2005-09-20 00:00:00 Completed [facility] Hepatitis A Adult 2005-09-20 00:00:00 Completed [facility] Hep B, Adol or Pedi Dosage 2005-09-20 00:00:00 Completed [facility] Pneumococcal 13 Conjugate, PCV13 (Prevnar 13) 2005-09-20 00:00:00 Completed [facility] Polio (IPV/OPV) 2005-09-20 00:00:00 Completed [facility] DTAP 2005-09-20 00:00:00 Completed [facility] HIB 3 Dose Schedule 2005-09-20 00:00:00 Completed [facility] Hepatitis A Adult 2005-09-20 00:00:00 Completed [facility] Hep B, Adol or Pedi Dosage 2005-09-20 00:00:00 Completed [facility] Pneumococcal 13 Conjugate, PCV13 (Prevnar 13) 2005-09-20 00:00:00 Completed [facility] Polio (IPV/OPV) 2005-09-20 00:00:00 Completed [facility] DTAP 2005-09-20 00:00:00 Completed [facility] HIB 3 Dose Schedule 2005-09-20 00:00:00 Completed [facility] Hepatitis A Adult 2005-09-20 00:00:00 Completed [facility] Hep B, Adol or Pedi Dosage 2005-09-20 00:00:00 Completed [facility] Pneumococcal 13 Conjugate, PCV13 (Prevnar 13) 2005-09-20 00:00:00 Completed [facility] Polio (IPV/OPV) 2005-09-20 00:00:00 Completed [facility] DTAP 2005-09-20 00:00:00 Completed [facility] HIB 3 Dose Schedule 2005-09-20 00:00:00 Completed [facility] Hepatitis A Adult 2005-09-20 00:00:00 Completed [facility] Hep B, Adol or Pedi Dosage 2005-09-20 00:00:00 Completed [facility] Pneumococcal 13 Conjugate, PCV13 (Prevnar 13) 2005-09-20 00:00:00 Completed [facility] Polio (IPV/OPV) 2005-09-20 00:00:00 Completed [facility] DTAP 2005-09-20 00:00:00 Completed [facility] HIB 3 Dose Schedule 2005-09-20 00:00:00 Completed [facility] Hepatitis A Adult 2005-09-20 00:00:00 Completed [facility] Hep B, Adol or Pedi Dosage 2005-09-20 00:00:00 Completed [facility] Pneumococcal 13 Conjugate, PCV13 (Prevnar 13) 2005-09-20 00:00:00 Completed [facility] Polio (IPV/OPV) 2005-09-20 00:00:00 Completed [facility] DTAP 2005-09-20 00:00:00 Completed [facility] HIB 3 Dose Schedule 2005-09-20 00:00:00 Completed [facility] Hepatitis A Adult 2005-09-20 00:00:00 Completed [facility] Hep B, Adol or Pedi Dosage 2005-09-20 00:00:00 Completed [facility] Pneumococcal 13 Conjugate, PCV13 (Prevnar 13) 2005-09-20 00:00:00 Completed [facility] Polio (IPV/OPV) 2005-09-20 00:00:00 Completed [facility] DTAP 2005-09-20 00:00:00 Completed [facility] HIB 3 Dose Schedule 2005-09-20 00:00:00 Completed [facility] Hepatitis A Adult 2005-09-20 00:00:00 Completed [facility] Hep B, Adol or Pedi Dosage 2005-09-20 00:00:00 Completed [facility] Pneumococcal 13 Conjugate, PCV13 (Prevnar 13) 2005-09-20 00:00:00 Completed [facility] Polio (IPV/OPV) 2005-09-20 00:00:00 Completed [facility] DTAP 2005-09-20 00:00:00 Completed [facility] HIB 3 Dose Schedule 2005-09-20 00:00:00 Completed [facility] Hepatitis A Adult 2005-09-20 00:00:00 Completed [facility] Hep B, Adol or Pedi Dosage 2005-09-20 00:00:00 Completed [facility] Pneumococcal 13 Conjugate, PCV13 (Prevnar 13) 2005-09-20 00:00:00 Completed [facility] Polio (IPV/OPV) 2005-09-20 00:00:00 Completed [facility] DTAP 2005-09-20 00:00:00 Completed [facility] HIB 3 Dose Schedule 2005-09-20 00:00:00 Completed [facility] Hepatitis A Adult 2005-09-20 00:00:00 Completed [facility] Hep B, Adol or Pedi Dosage 2005-09-20 00:00:00 Completed [facility] Pneumococcal 13 Conjugate, PCV13 (Prevnar 13) 2005-09-20 00:00:00 Completed [facility] Polio (IPV/OPV) 2005-09-20 00:00:00 Completed [facility] DTAP 2005-09-20 00:00:00 Completed [facility] HIB 3 Dose Schedule 2005-09-20 00:00:00 Completed [facility] Hepatitis A Adult 2005-09-20 00:00:00 Completed [facility] Hep B, Adol or Pedi Dosage 2005-09-20 00:00:00 Completed [facility] Pneumococcal 13 Conjugate, PCV13 (Prevnar 13) 2005-09-20 00:00:00 Completed [facility] Polio (IPV/OPV) 2005-09-20 00:00:00 Completed [facility] DTAP 2005-09-20 00:00:00 Completed [facility] HIB 3 Dose Schedule 2005-09-20 00:00:00 Completed [facility] Hepatitis A Adult 2005-09-20 00:00:00 Completed [facility] Hep B, Adol or Pedi Dosage 2005-09-20 00:00:00 Completed [facility] Pneumococcal 13 Conjugate, PCV13 (Prevnar 13) 2005-09-20 00:00:00 Completed [facility] Polio (IPV/OPV) 2005-09-20 00:00:00 Completed [facility] DTAP 2005-09-20 00:00:00 Completed [facility] HIB 3 Dose Schedule 2005-09-20 00:00:00 Completed [facility] Hepatitis A Adult 2005-09-20 00:00:00 Completed [facility] Hep B, Adol or Pedi Dosage 2005-09-20 00:00:00 Completed [facility] Pneumococcal 13 Conjugate, PCV13 (Prevnar 13) 2005-09-20 00:00:00 Completed [facility] Polio (IPV/OPV) 2005-09-20 00:00:00 Completed [facility] DTAP 2005-09-20 00:00:00 Completed [facility] HIB 3 Dose Schedule 2005-09-20 00:00:00 Completed [facility] Hepatitis A Adult 2005-09-20 00:00:00 Completed [facility] Hep B, Adol or Pedi Dosage 2005-09-20 00:00:00 Completed [facility] Pneumococcal 13 Conjugate, PCV13 (Prevnar 13) 2005-09-20 00:00:00 Completed [facility] Polio (IPV/OPV) 2005-09-20 00:00:00 Completed [facility] DTAP 2005-09-20 00:00:00 Completed [facility] HIB 3 Dose Schedule 2005-09-20 00:00:00 Completed [facility] Hepatitis A Adult 2005-09-20 00:00:00 Completed [facility] Hep B, Adol or Pedi Dosage 2005-09-20 00:00:00 Completed [facility] Pneumococcal 13 Conjugate, PCV13 (Prevnar 13) 2005-09-20 00:00:00 Completed [facility] Polio (IPV/OPV) 2005-09-20 00:00:00 Completed [facility] DTAP 2005-09-20 00:00:00 Completed [facility] HIB 3 Dose Schedule 2005-09-20 00:00:00 Completed [facility] Hepatitis A Adult 2005-09-20 00:00:00 Completed [facility] Hep B, Adol or Pedi Dosage 2005-09-20 00:00:00 Completed [facility] Pneumococcal 13 Conjugate, PCV13 (Prevnar 13) 2005-09-20 00:00:00 Completed [facility] Polio (IPV/OPV) 2005-09-20 00:00:00 Completed [facility] DTAP 2005-09-20 00:00:00 Completed [facility] HIB 3 Dose Schedule 2005-09-20 00:00:00 Completed [facility] Hepatitis A Adult 2005-09-20 00:00:00 Completed [facility] Hep B, Adol or Pedi Dosage 2005-09-20 00:00:00 Completed [facility] Pneumococcal 13 Conjugate, PCV13 (Prevnar 13) 2005-09-20 00:00:00 Completed [facility] Polio (IPV/OPV) 2005-09-20 00:00:00 Completed [facility] DTAP 2005-09-20 00:00:00 Completed [facility] HIB 3 Dose Schedule 2005-09-20 00:00:00 Completed [facility] Hepatitis A Adult 2005-09-20 00:00:00 Completed [facility] Hep B, Adol or Pedi Dosage 2005-09-20 00:00:00 Completed [facility] Pneumococcal 13 Conjugate, PCV13 (Prevnar 13) 2005-09-20 00:00:00 Completed [facility] Polio (IPV/OPV) 2005-09-20 00:00:00 Completed [facility] DTAP 2005-09-20 00:00:00 Completed [facility] HIB 3 Dose Schedule 2005-09-20 00:00:00 Completed [facility] Hepatitis A Adult 2005-09-20 00:00:00 Completed [facility] Hep B, Adol or Pedi Dosage 2005-09-20 00:00:00 Completed [facility] Pneumococcal 13 Conjugate, PCV13 (Prevnar 13) 2005-09-20 00:00:00 Completed [facility] Polio (IPV/OPV) 2005-09-20 00:00:00 Completed [facility] DTAP 2005-09-20 00:00:00 Completed [facility] HIB 3 Dose Schedule 2005-09-20 00:00:00 Completed [facility] Hepatitis A Adult 2005-09-20 00:00:00 Completed [facility] Hep B, Adol or Pedi Dosage 2005-09-20 00:00:00 Completed [facility] Pneumococcal 13 Conjugate, PCV13 (Prevnar 13) 2005-09-20 00:00:00 Completed [facility] Polio (IPV/OPV) 2005-09-20 00:00:00 Completed [facility] DTAP 2005-09-20 00:00:00 Completed [facility] HIB 3 Dose Schedule 2005-09-20 00:00:00 Completed [facility] Hepatitis A Adult 2005-09-20 00:00:00 Completed [facility] Hep B, Adol or Pedi Dosage 2005-09-20 00:00:00 Completed [facility] Pneumococcal 13 Conjugate, PCV13 (Prevnar 13) 2005-09-20 00:00:00 Completed [facility] Polio (IPV/OPV) 2005-09-20 00:00:00 Completed [facility] DTAP 2005-09-20 00:00:00 Completed [facility] HIB 3 Dose Schedule 2005-09-20 00:00:00 Completed [facility] Hepatitis A Adult 2005-09-20 00:00:00 Completed [facility] Hep B, Adol or Pedi Dosage 2005-09-20 00:00:00 Completed [facility] Pneumococcal 13 Conjugate, PCV13 (Prevnar 13) 2005-09-20 00:00:00 Completed [facility] Polio (IPV/OPV) 2005-09-20 00:00:00 Completed [facility] DTAP 2005-09-20 00:00:00 Completed [facility] HIB 3 Dose Schedule 2005-09-20 00:00:00 Completed [facility] Hepatitis A Adult 2005-09-20 00:00:00 Completed [facility] Hep B, Adol or Pedi Dosage 2005-09-20 00:00:00 Completed [facility] Pneumococcal 13 Conjugate, PCV13 (Prevnar 13) 2005-09-20 00:00:00 Completed [facility] Polio (IPV/OPV) 2005-09-20 00:00:00 Completed [facility] DTAP 2005-09-20 00:00:00 Completed [facility] HIB 3 Dose Schedule 2005-09-20 00:00:00 Completed [facility] Hepatitis A Adult 2005-09-20 00:00:00 Completed [facility] Hep B, Adol or Pedi Dosage 2005-09-20 00:00:00 Completed [facility] Pneumococcal 13 Conjugate, PCV13 (Prevnar 13) 2005-09-20 00:00:00 Completed [facility] Polio (IPV/OPV) 2005-09-20 00:00:00 Completed [facility] DTAP 2005-09-20 00:00:00 Completed [facility] HIB 3 Dose Schedule 2005-09-20 00:00:00 Completed [facility] Hepatitis A Adult 2005-09-20 00:00:00 Completed [facility] Hep B, Adol or Pedi Dosage 2005-09-20 00:00:00 Completed [facility] Pneumococcal 13 Conjugate, PCV13 (Prevnar 13) 2005-09-20 00:00:00 Completed [facility] Polio (IPV/OPV) 2005-09-20 00:00:00 Completed [facility] DTAP 2005-09-20 00:00:00 Completed [facility] HIB 3 Dose Schedule 2005-09-20 00:00:00 Completed [facility] Hepatitis A Adult 2005-09-20 00:00:00 Completed [facility] Hep B, Adol or Pedi Dosage 2005-09-20 00:00:00 Completed [facility] Pneumococcal 13 Conjugate, PCV13 (Prevnar 13) 2005-09-20 00:00:00 Completed [facility] Polio (IPV/OPV) 2005-09-20 00:00:00 Completed [facility] DTAP 2005-09-20 00:00:00 Completed [facility] HIB 3 Dose Schedule 2005-09-20 00:00:00 Completed [facility] Hepatitis A Adult 2005-09-20 00:00:00 Completed [facility] Hep B, Adol or Pedi Dosage 2005-09-20 00:00:00 Completed [facility] Pneumococcal 13 Conjugate, PCV13 (Prevnar 13) 2005-09-20 00:00:00 Completed [facility] Polio (IPV/OPV) 2005-09-20 00:00:00 Completed [facility] DTaP, Unspecified Formulation 2005-09-20 00:00:00 Completed [facility] HEPATITIS A 2005-09-20 00:00:00 Completed [facility] HIB 4 Dose Schedule 2005-09-20 00:00:00 Completed [facility] Pneumococcal 7 Conjugate, PCV7 (Prevnar7) 2005-09-20 00:00:00 Completed [facility] IPV 2005-09-20 00:00:00 Completed [facility] DTAP 2005-09-20 00:00:00 Completed [facility] HIB 3 Dose Schedule 2005-09-20 00:00:00 Completed [facility] Hepatitis A Adult 2005-09-20 00:00:00 Completed [facility] Hep B, Adol or Pedi Dosage 2005-09-20 00:00:00 Completed [facility] Pneumococcal 13 Conjugate, PCV13 (Prevnar 13) 2005-09-20 00:00:00 Completed [facility] Polio (IPV/OPV) 2005-09-20 00:00:00 Completed [facility] DTaP, Unspecified Formulation 2005-09-20 00:00:00 Completed [facility] HEPATITIS A 2005-09-20 00:00:00 Completed [facility] HIB 4 Dose Schedule 2005-09-20 00:00:00 Completed [facility] Pneumococcal 7 Conjugate, PCV7 (Prevnar7) 2005-09-20 00:00:00 Completed [facility] IPV 2005-09-20 00:00:00 Completed [facility] DTAP 2005-09-20 00:00:00 Completed [facility] HIB 3 Dose Schedule 2005-09-20 00:00:00 Completed [facility] Hepatitis A Adult 2005-09-20 00:00:00 Completed [facility] Hep B, Adol or Pedi Dosage 2005-09-20 00:00:00 Completed [facility] Pneumococcal 13 Conjugate, PCV13 (Prevnar 13) 2005-09-20 00:00:00 Completed [facility] Polio (IPV/OPV) 2005-09-20 00:00:00 Completed [facility] DTaP, Unspecified Formulation 2005-09-20 00:00:00 Completed [facility] HEPATITIS A 2005-09-20 00:00:00 Completed [facility] HIB 4 Dose Schedule 2005-09-20 00:00:00 Completed [facility] Pneumococcal 7 Conjugate, PCV7 (Prevnar7) 2005-09-20 00:00:00 Completed [facility] IPV 2005-09-20 00:00:00 Completed [facility] DTAP 2005-09-20 00:00:00 Completed [facility] HIB 3 Dose Schedule 2005-09-20 00:00:00 Completed [facility] Hepatitis A Adult 2005-09-20 00:00:00 Completed [facility] Hep B, Adol or Pedi Dosage 2005-09-20 00:00:00 Completed [facility] Pneumococcal 13 Conjugate, PCV13 (Prevnar 13) 2005-09-20 00:00:00 Completed [facility] Polio (IPV/OPV) 2005-09-20 00:00:00 Completed [facility] DTaP, Unspecified Formulation 2005-09-20 00:00:00 Completed [facility] HEPATITIS A 2005-09-20 00:00:00 Completed [facility] HIB 4 Dose Schedule 2005-09-20 00:00:00 Completed [facility] Pneumococcal 7 Conjugate, PCV7 (Prevnar7) 2005-09-20 00:00:00 Completed [facility] IPV 2005-09-20 00:00:00 Completed [facility] DTAP 2005-09-20 00:00:00 Completed [facility] HIB 3 Dose Schedule 2005-09-20 00:00:00 Completed [facility] Hepatitis A Adult 2005-09-20 00:00:00 Completed [facility] Hep B, Adol or Pedi Dosage 2005-09-20 00:00:00 Completed [facility] Pneumococcal 13 Conjugate, PCV13 (Prevnar 13) 2005-09-20 00:00:00 Completed [facility] Polio (IPV/OPV) 2005-09-20 00:00:00 Completed [facility] DTaP, Unspecified Formulation 2005-09-20 00:00:00 Completed [facility] HEPATITIS A 2005-09-20 00:00:00 Completed [facility] HIB 4 Dose Schedule 2005-09-20 00:00:00 Completed [facility] Pneumococcal 7 Conjugate, PCV7 (Prevnar7) 2005-09-20 00:00:00 Completed [facility] IPV 2005-09-20 00:00:00 Completed [facility] DTAP 2005-09-20 00:00:00 Completed [facility] HIB 3 Dose Schedule 2005-09-20 00:00:00 Completed [facility] Hepatitis A Adult 2005-09-20 00:00:00 Completed [facility] Hep B, Adol or Pedi Dosage 2005-09-20 00:00:00 Completed [facility] Pneumococcal 13 Conjugate, PCV13 (Prevnar 13) 2005-09-20 00:00:00 Completed [facility] Polio (IPV/OPV) 2005-09-20 00:00:00 Completed [facility] DTaP, Unspecified Formulation 2005-09-20 00:00:00 Completed [facility] HEPATITIS A 2005-09-20 00:00:00 Completed [facility] HIB 4 Dose Schedule 2005-09-20 00:00:00 Completed [facility] Pneumococcal 7 Conjugate, PCV7 (Prevnar7) 2005-09-20 00:00:00 Completed [facility] IPV 2005-09-20 00:00:00 Completed [facility] DTAP 2005-09-20 00:00:00 Completed [facility] HIB 3 Dose Schedule 2005-09-20 00:00:00 Completed [facility] Hepatitis A Adult 2005-09-20 00:00:00 Completed [facility] Hep B, Adol or Pedi Dosage 2005-09-20 00:00:00 Completed [facility] Pneumococcal 13 Conjugate, PCV13 (Prevnar 13) 2005-09-20 00:00:00 Completed [facility] Polio (IPV/OPV) 2005-09-20 00:00:00 Completed [facility] DTaP, Unspecified Formulation 2005-09-20 00:00:00 Completed [facility] HEPATITIS A 2005-09-20 00:00:00 Completed [facility] HIB 4 Dose Schedule 2005-09-20 00:00:00 Completed [facility] Pneumococcal 7 Conjugate, PCV7 (Prevnar7) 2005-09-20 00:00:00 Completed [facility] IPV 2005-09-20 00:00:00 Completed [facility] DTAP 2005-09-20 00:00:00 Completed [facility] HIB 3 Dose Schedule 2005-09-20 00:00:00 Completed [facility] Hepatitis A Adult 2005-09-20 00:00:00 Completed [facility] Hep B, Adol or Pedi Dosage 2005-09-20 00:00:00 Completed [facility] Pneumococcal 13 Conjugate, PCV13 (Prevnar 13) 2005-09-20 00:00:00 Completed [facility] Polio (IPV/OPV) 2005-09-20 00:00:00 Completed [facility] DTaP, Unspecified Formulation 2005-09-20 00:00:00 Completed [facility] HEPATITIS A 2005-09-20 00:00:00 Completed [facility] HIB 4 Dose Schedule 2005-09-20 00:00:00 Completed [facility] Pneumococcal 7 Conjugate, PCV7 (Prevnar7) 2005-09-20 00:00:00 Completed [facility] IPV 2005-09-20 00:00:00 Completed [facility] DTAP 2005-09-20 00:00:00 Completed [facility] HIB 3 Dose Schedule 2005-09-20 00:00:00 Completed [facility] Hepatitis A Adult 2005-09-20 00:00:00 Completed [facility] Hep B, Adol or Pedi Dosage 2005-09-20 00:00:00 Completed [facility] Pneumococcal 13 Conjugate, PCV13 (Prevnar 13) 2005-09-20 00:00:00 Completed [facility] Polio (IPV/OPV) 2005-09-20 00:00:00 Completed [facility] DTaP, Unspecified Formulation 2005-09-20 00:00:00 Completed [facility] HEPATITIS A 2005-09-20 00:00:00 Completed [facility] HIB 4 Dose Schedule 2005-09-20 00:00:00 Completed [facility] Pneumococcal 7 Conjugate, PCV7 (Prevnar7) 2005-09-20 00:00:00 Completed [facility] IPV 2005-09-20 00:00:00 Completed [facility] DTAP 2005-09-20 00:00:00 Completed [facility] HIB 3 Dose Schedule 2005-09-20 00:00:00 Completed [facility] Hepatitis A Adult 2005-09-20 00:00:00 Completed [facility] Hep B, Adol or Pedi Dosage 2005-09-20 00:00:00 Completed [facility] Pneumococcal 13 Conjugate, PCV13 (Prevnar 13) 2005-09-20 00:00:00 Completed [facility] Polio (IPV/OPV) 2005-09-20 00:00:00 Completed [facility] DTaP, Unspecified Formulation 2005-09-20 00:00:00 Completed [facility] HEPATITIS A 2005-09-20 00:00:00 Completed [facility] HIB 4 Dose Schedule 2005-09-20 00:00:00 Completed [facility] Pneumococcal 7 Conjugate, PCV7 (Prevnar7) 2005-09-20 00:00:00 Completed [facility] IPV 2005-09-20 00:00:00 Completed [facility] DTAP 2005-09-20 00:00:00 Completed [facility] HIB 3 Dose Schedule 2005-09-20 00:00:00 Completed [facility] Hepatitis A Adult 2005-09-20 00:00:00 Completed [facility] Hep B, Adol or Pedi Dosage 2005-09-20 00:00:00 Completed [facility] Pneumococcal 13 Conjugate, PCV13 (Prevnar 13) 2005-09-20 00:00:00 Completed [facility] Polio (IPV/OPV) 2005-09-20 00:00:00 Completed [facility] DTaP, Unspecified Formulation 2005-09-20 00:00:00 Completed [facility] HEPATITIS A 2005-09-20 00:00:00 Completed [facility] HIB 4 Dose Schedule 2005-09-20 00:00:00 Completed [facility] Pneumococcal 7 Conjugate, PCV7 (Prevnar7) 2005-09-20 00:00:00 Completed [facility] IPV 2005-09-20 00:00:00 Completed [facility] DTAP 2005-09-20 00:00:00 Completed [facility] HIB 3 Dose Schedule 2005-09-20 00:00:00 Completed [facility] Hepatitis A Adult 2005-09-20 00:00:00 Completed [facility] Hep B, Adol or Pedi Dosage 2005-09-20 00:00:00 Completed [facility] Pneumococcal 13 Conjugate, PCV13 (Prevnar 13) 2005-09-20 00:00:00 Completed [facility] Polio (IPV/OPV) 2005-09-20 00:00:00 Completed [facility] DTaP, Unspecified Formulation 2005-09-20 00:00:00 Completed [facility] HEPATITIS A 2005-09-20 00:00:00 Completed [facility] HIB 4 Dose Schedule 2005-09-20 00:00:00 Completed [facility] Pneumococcal 7 Conjugate, PCV7 (Prevnar7) 2005-09-20 00:00:00 Completed [facility] IPV 2005-09-20 00:00:00 Completed [facility] DTAP 2005-09-20 00:00:00 Completed [facility] HIB 3 Dose Schedule 2005-09-20 00:00:00 Completed [facility] Hepatitis A Adult 2005-09-20 00:00:00 Completed [facility] Hep B, Adol or Pedi Dosage 2005-09-20 00:00:00 Completed [facility] Pneumococcal 13 Conjugate, PCV13 (Prevnar 13) 2005-09-20 00:00:00 Completed [facility] Polio (IPV/OPV) 2005-09-20 00:00:00 Completed [facility] DTaP, Unspecified Formulation 2005-09-20 00:00:00 Completed [facility] HEPATITIS A 2005-09-20 00:00:00 Completed [facility] HIB 4 Dose Schedule 2005-09-20 00:00:00 Completed [facility] Pneumococcal 7 Conjugate, PCV7 (Prevnar7) 2005-09-20 00:00:00 Completed [facility] IPV 2005-09-20 00:00:00 Completed [facility] DTAP 2005-09-20 00:00:00 Completed [facility] HIB 3 Dose Schedule 2005-09-20 00:00:00 Completed [facility] Hepatitis A Adult 2005-09-20 00:00:00 Completed [facility] Hep B, Adol or Pedi Dosage 2005-09-20 00:00:00 Completed [facility] Pneumococcal 13 Conjugate, PCV13 (Prevnar 13) 2005-09-20 00:00:00 Completed [facility] Polio (IPV/OPV) 2005-09-20 00:00:00 Completed [facility] DTaP, Unspecified Formulation 2005-09-20 00:00:00 Completed [facility] HEPATITIS A 2005-09-20 00:00:00 Completed [facility] HIB 4 Dose Schedule 2005-09-20 00:00:00 Completed [facility] Pneumococcal 7 Conjugate, PCV7 (Prevnar7) 2005-09-20 00:00:00 Completed [facility] IPV 2005-09-20 00:00:00 Completed [facility] DTAP 2005-09-20 00:00:00 Completed [facility] HIB 3 Dose Schedule 2005-09-20 00:00:00 Completed [facility] Hepatitis A Adult 2005-09-20 00:00:00 Completed [facility] Hep B, Adol or Pedi Dosage 2005-09-20 00:00:00 Completed [facility] Pneumococcal 13 Conjugate, PCV13 (Prevnar 13) 2005-09-20 00:00:00 Completed [facility] Polio (IPV/OPV) 2005-09-20 00:00:00 Completed [facility] DTaP, Unspecified Formulation 2005-09-20 00:00:00 Completed [facility] HEPATITIS A 2005-09-20 00:00:00 Completed [facility] HIB 4 Dose Schedule 2005-09-20 00:00:00 Completed [facility] Pneumococcal 7 Conjugate, PCV7 (Prevnar7) 2005-09-20 00:00:00 Completed [facility] IPV 2005-09-20 00:00:00 Completed [facility] DTAP 2005-09-20 00:00:00 Completed [facility] HIB 3 Dose Schedule 2005-09-20 00:00:00 Completed [facility] Hepatitis A Adult 2005-09-20 00:00:00 Completed [facility] Hep B, Adol or Pedi Dosage 2005-09-20 00:00:00 Completed [facility] Pneumococcal 13 Conjugate, PCV13 (Prevnar 13) 2005-09-20 00:00:00 Completed [facility] Polio (IPV/OPV) 2005-09-20 00:00:00 Completed [facility] DTaP, Unspecified Formulation 2005-09-20 00:00:00 Completed [facility] HEPATITIS A 2005-09-20 00:00:00 Completed [facility] HIB 4 Dose Schedule 2005-09-20 00:00:00 Completed [facility] Pneumococcal 7 Conjugate, PCV7 (Prevnar7) 2005-09-20 00:00:00 Completed [facility] IPV 2005-09-20 00:00:00 Completed [facility] DTAP 2005-09-20 00:00:00 Completed [facility] HIB 3 Dose Schedule 2005-09-20 00:00:00 Completed [facility] Hepatitis A Adult 2005-09-20 00:00:00 Completed [facility] Hep B, Adol or Pedi Dosage 2005-09-20 00:00:00 Completed [facility] Pneumococcal 13 Conjugate, PCV13 (Prevnar 13) 2005-09-20 00:00:00 Completed [facility] Polio (IPV/OPV) 2005-09-20 00:00:00 Completed [facility] DTaP, Unspecified Formulation 2005-09-20 00:00:00 Completed [facility] HEPATITIS A 2005-09-20 00:00:00 Completed [facility] HIB 4 Dose Schedule 2005-09-20 00:00:00 Completed [facility] Pneumococcal 7 Conjugate, PCV7 (Prevnar7) 2005-09-20 00:00:00 Completed [facility] IPV 2005-09-20 00:00:00 Completed [facility] DTAP 2005-09-20 00:00:00 Completed [facility] HIB 3 Dose Schedule 2005-09-20 00:00:00 Completed [facility] Hepatitis A Adult 2005-09-20 00:00:00 Completed [facility] Hep B, Adol or Pedi Dosage 2005-09-20 00:00:00 Completed [facility] Pneumococcal 13 Conjugate, PCV13 (Prevnar 13) 2005-09-20 00:00:00 Completed [facility] Polio (IPV/OPV) 2005-09-20 00:00:00 Completed [facility] DTaP, Unspecified Formulation 2005-09-20 00:00:00 Completed [facility] HEPATITIS A 2005-09-20 00:00:00 Completed [facility] HIB 4 Dose Schedule 2005-09-20 00:00:00 Completed [facility] Pneumococcal 7 Conjugate, PCV7 (Prevnar7) 2005-09-20 00:00:00 Completed [facility] IPV 2005-09-20 00:00:00 Completed [facility] DTAP 2005-09-20 00:00:00 Completed [facility] HIB 3 Dose Schedule 2005-09-20 00:00:00 Completed [facility] Hepatitis A Adult 2005-09-20 00:00:00 Completed [facility] Hep B, Adol or Pedi Dosage 2005-09-20 00:00:00 Completed [facility] Pneumococcal 13 Conjugate, PCV13 (Prevnar 13) 2005-09-20 00:00:00 Completed [facility] Polio (IPV/OPV) 2005-09-20 00:00:00 Completed [facility] DTaP, Unspecified Formulation 2005-09-20 00:00:00 Completed [facility] HEPATITIS A 2005-09-20 00:00:00 Completed [facility] HIB 4 Dose Schedule 2005-09-20 00:00:00 Completed [facility] Pneumococcal 7 Conjugate, PCV7 (Prevnar7) 2005-09-20 00:00:00 Completed [facility] IPV 2005-09-20 00:00:00 Completed [facility] DTAP 2005-09-20 00:00:00 Completed [facility] HIB 3 Dose Schedule 2005-09-20 00:00:00 Completed [facility] Hepatitis A Adult 2005-09-20 00:00:00 Completed [facility] Hep B, Adol or Pedi Dosage 2005-09-20 00:00:00 Completed [facility] Pneumococcal 13 Conjugate, PCV13 (Prevnar 13) 2005-09-20 00:00:00 Completed [facility] Polio (IPV/OPV) 2005-09-20 00:00:00 Completed [facility] DTaP, Unspecified Formulation 2005-09-20 00:00:00 Completed [facility] HEPATITIS A 2005-09-20 00:00:00 Completed [facility] HIB 4 Dose Schedule 2005-09-20 00:00:00 Completed [facility] Pneumococcal 7 Conjugate, PCV7 (Prevnar7) 2005-09-20 00:00:00 Completed [facility] IPV 2005-09-20 00:00:00 Completed [facility] DTAP 2005-09-20 00:00:00 Completed [facility] HIB 3 Dose Schedule 2005-09-20 00:00:00 Completed [facility] Hepatitis A Adult 2005-09-20 00:00:00 Completed [facility] Hep B, Adol or Pedi Dosage 2005-09-20 00:00:00 Completed [facility] Pneumococcal 13 Conjugate, PCV13 (Prevnar 13) 2005-09-20 00:00:00 Completed [facility] Polio (IPV/OPV) 2005-09-20 00:00:00 Completed [facility] DTaP, Unspecified Formulation 2005-09-20 00:00:00 Completed [facility] HEPATITIS A 2005-09-20 00:00:00 Completed [facility] HIB 4 Dose Schedule 2005-09-20 00:00:00 Completed [facility] Pneumococcal 7 Conjugate, PCV7 (Prevnar7) 2005-09-20 00:00:00 Completed [facility] IPV 2005-09-20 00:00:00 Completed [facility] DTAP 2005-09-20 00:00:00 Completed [facility] HIB 3 Dose Schedule 2005-09-20 00:00:00 Completed [facility] Hepatitis A Adult 2005-09-20 00:00:00 Completed [facility] Hep B, Adol or Pedi Dosage 2005-09-20 00:00:00 Completed [facility] Pneumococcal 13 Conjugate, PCV13 (Prevnar 13) 2005-09-20 00:00:00 Completed [facility] Polio (IPV/OPV) 2005-09-20 00:00:00 Completed [facility] DTaP, Unspecified Formulation 2005-09-20 00:00:00 Completed [facility] HEPATITIS A 2005-09-20 00:00:00 Completed [facility] HIB 4 Dose Schedule 2005-09-20 00:00:00 Completed [facility] Pneumococcal 7 Conjugate, PCV7 (Prevnar7) 2005-09-20 00:00:00 Completed [facility] IPV 2005-09-20 00:00:00 Completed [facility] DTAP 2005-09-20 00:00:00 Completed [facility] HIB 3 Dose Schedule 2005-09-20 00:00:00 Completed [facility] Hepatitis A Adult 2005-09-20 00:00:00 Completed [facility] Hep B, Adol or Pedi Dosage 2005-09-20 00:00:00 Completed [facility] Pneumococcal 13 Conjugate, PCV13 (Prevnar 13) 2005-09-20 00:00:00 Completed [facility] Polio (IPV/OPV) 2005-09-20 00:00:00 Completed [facility] DTaP, Unspecified Formulation 2005-09-20 00:00:00 Completed [facility] HEPATITIS A 2005-09-20 00:00:00 Completed [facility] HIB 4 Dose Schedule 2005-09-20 00:00:00 Completed [facility] Pneumococcal 7 Conjugate, PCV7 (Prevnar7) 2005-09-20 00:00:00 Completed [facility] IPV 2005-09-20 00:00:00 Completed [facility] DTAP 2005-09-20 00:00:00 Completed [facility] HIB 3 Dose Schedule 2005-09-20 00:00:00 Completed [facility] Hepatitis A Adult 2005-09-20 00:00:00 Completed [facility] Hep B, Adol or Pedi Dosage 2005-09-20 00:00:00 Completed [facility] Pneumococcal 13 Conjugate, PCV13 (Prevnar 13) 2005-09-20 00:00:00 Completed [facility] Polio (IPV/OPV) 2005-09-20 00:00:00 Completed [facility] DTaP, Unspecified Formulation 2005-09-20 00:00:00 Completed [facility] HEPATITIS A 2005-09-20 00:00:00 Completed [facility] HIB 4 Dose Schedule 2005-09-20 00:00:00 Completed [facility] Pneumococcal 7 Conjugate, PCV7 (Prevnar7) 2005-09-20 00:00:00 Completed [facility] IPV 2005-09-20 00:00:00 Completed [facility] DTAP 2005-09-20 00:00:00 Completed [facility] HIB 3 Dose Schedule 2005-09-20 00:00:00 Completed [facility] Hepatitis A Adult 2005-09-20 00:00:00 Completed [facility] Hep B, Adol or Pedi Dosage 2005-09-20 00:00:00 Completed [facility] Pneumococcal 13 Conjugate, PCV13 (Prevnar 13) 2005-09-20 00:00:00 Completed [facility] Polio (IPV/OPV) 2005-09-20 00:00:00 Completed [facility] DTaP, Unspecified Formulation 2005-09-20 00:00:00 Completed [facility] HEPATITIS A 2005-09-20 00:00:00 Completed [facility] HIB 4 Dose Schedule 2005-09-20 00:00:00 Completed [facility] Pneumococcal 7 Conjugate, PCV7 (Prevnar7) 2005-09-20 00:00:00 Completed [facility] IPV 2005-09-20 00:00:00 Completed [facility] DTAP 2005-09-20 00:00:00 Completed [facility] HIB 3 Dose Schedule 2005-09-20 00:00:00 Completed [facility] Hepatitis A Adult 2005-09-20 00:00:00 Completed [facility] Hep B, Adol or Pedi Dosage 2005-09-20 00:00:00 Completed [facility] Pneumococcal 13 Conjugate, PCV13 (Prevnar 13) 2005-09-20 00:00:00 Completed [facility] Polio (IPV/OPV) 2005-09-20 00:00:00 Completed [facility] DTaP, Unspecified Formulation 2005-09-20 00:00:00 Completed [facility] HEPATITIS A 2005-09-20 00:00:00 Completed [facility] HIB 4 Dose Schedule 2005-09-20 00:00:00 Completed [facility] Pneumococcal 7 Conjugate, PCV7 (Prevnar7) 2005-09-20 00:00:00 Completed [facility] IPV 2005-09-20 00:00:00 Completed [facility] DTAP 2004-07-22 00:00:00 Completed [facility] Hep B, Adol or Pedi Dosage 2004-07-22 00:00:00 Completed [facility] MMR 2004-07-22 00:00:00 Completed [facility] Polio (IPV/OPV) 2004-07-22 00:00:00 Completed [facility] Varicella (varivax)(chicken pox) 2004-07-22 00:00:00 Completed [facility] DTAP 2004-07-22 00:00:00 Completed [facility] Hep B, Adol or Pedi Dosage 2004-07-22 00:00:00 Completed [facility] MMR 2004-07-22 00:00:00 Completed [facility] Polio (IPV/OPV) 2004-07-22 00:00:00 Completed [facility] Varicella (varivax)(chicken pox) 2004-07-22 00:00:00 Completed [facility] DTAP 2004-07-22 00:00:00 Completed [facility] Hep B, Adol or Pedi Dosage 2004-07-22 00:00:00 Completed [facility] MMR 2004-07-22 00:00:00 Completed [facility] Polio (IPV/OPV) 2004-07-22 00:00:00 Completed [facility] Varicella (varivax)(chicken pox) 2004-07-22 00:00:00 Completed [facility] DTAP 2004-07-22 00:00:00 Completed [facility] Hep B, Adol or Pedi Dosage 2004-07-22 00:00:00 Completed [facility] MMR 2004-07-22 00:00:00 Completed [facility] Polio (IPV/OPV) 2004-07-22 00:00:00 Completed [facility] Varicella (varivax)(chicken pox) 2004-07-22 00:00:00 Completed [facility] DTAP 2004-07-22 00:00:00 Completed [facility] Hep B, Adol or Pedi Dosage 2004-07-22 00:00:00 Completed [facility] MMR 2004-07-22 00:00:00 Completed [facility] Polio (IPV/OPV) 2004-07-22 00:00:00 Completed [facility] Varicella (varivax)(chicken pox) 2004-07-22 00:00:00 Completed [facility] DTAP 2004-07-22 00:00:00 Completed [facility] Hep B, Adol or Pedi Dosage 2004-07-22 00:00:00 Completed [facility] MMR 2004-07-22 00:00:00 Completed [facility] Polio (IPV/OPV) 2004-07-22 00:00:00 Completed [facility] Varicella (varivax)(chicken pox) 2004-07-22 00:00:00 Completed [facility] DTAP 2004-07-22 00:00:00 Completed [facility] Hep B, Adol or Pedi Dosage 2004-07-22 00:00:00 Completed [facility] MMR 2004-07-22 00:00:00 Completed [facility] Polio (IPV/OPV) 2004-07-22 00:00:00 Completed [facility] Varicella (varivax)(chicken pox) 2004-07-22 00:00:00 Completed [facility] DTAP 2004-07-22 00:00:00 Completed [facility] Hep B, Adol or Pedi Dosage 2004-07-22 00:00:00 Completed [facility] MMR 2004-07-22 00:00:00 Completed [facility] Polio (IPV/OPV) 2004-07-22 00:00:00 Completed [facility] Varicella (varivax)(chicken pox) 2004-07-22 00:00:00 Completed [facility] DTAP 2004-07-22 00:00:00 Completed [facility] Hep B, Adol or Pedi Dosage 2004-07-22 00:00:00 Completed [facility] MMR 2004-07-22 00:00:00 Completed [facility] Polio (IPV/OPV) 2004-07-22 00:00:00 Completed [facility] Varicella (varivax)(chicken pox) 2004-07-22 00:00:00 Completed [facility] DTAP 2004-07-22 00:00:00 Completed [facility] Hep B, Adol or Pedi Dosage 2004-07-22 00:00:00 Completed [facility] MMR 2004-07-22 00:00:00 Completed [facility] Polio (IPV/OPV) 2004-07-22 00:00:00 Completed [facility] Varicella (varivax)(chicken pox) 2004-07-22 00:00:00 Completed [facility] DTAP 2004-07-22 00:00:00 Completed [facility] Hep B, Adol or Pedi Dosage 2004-07-22 00:00:00 Completed [facility] MMR 2004-07-22 00:00:00 Completed [facility] Polio (IPV/OPV) 2004-07-22 00:00:00 Completed [facility] Varicella (varivax)(chicken pox) 2004-07-22 00:00:00 Completed [facility] DTAP 2004-07-22 00:00:00 Completed [facility] Hep B, Adol or Pedi Dosage 2004-07-22 00:00:00 Completed [facility] MMR 2004-07-22 00:00:00 Completed [facility] Polio (IPV/OPV) 2004-07-22 00:00:00 Completed [facility] Varicella (varivax)(chicken pox) 2004-07-22 00:00:00 Completed [facility] DTAP 2004-07-22 00:00:00 Completed [facility] Hep B, Adol or Pedi Dosage 2004-07-22 00:00:00 Completed [facility] MMR 2004-07-22 00:00:00 Completed [facility] Polio (IPV/OPV) 2004-07-22 00:00:00 Completed [facility] Varicella (varivax)(chicken pox) 2004-07-22 00:00:00 Completed [facility] DTAP 2004-07-22 00:00:00 Completed [facility] Hep B, Adol or Pedi Dosage 2004-07-22 00:00:00 Completed [facility] MMR 2004-07-22 00:00:00 Completed [facility] Polio (IPV/OPV) 2004-07-22 00:00:00 Completed [facility] Varicella (varivax)(chicken pox) 2004-07-22 00:00:00 Completed [facility] DTAP 2004-07-22 00:00:00 Completed [facility] Hep B, Adol or Pedi Dosage 2004-07-22 00:00:00 Completed [facility] MMR 2004-07-22 00:00:00 Completed [facility] Polio (IPV/OPV) 2004-07-22 00:00:00 Completed [facility] Varicella (varivax)(chicken pox) 2004-07-22 00:00:00 Completed [facility] DTAP 2004-07-22 00:00:00 Completed [facility] Hep B, Adol or Pedi Dosage 2004-07-22 00:00:00 Completed [facility] MMR 2004-07-22 00:00:00 Completed [facility] Polio (IPV/OPV) 2004-07-22 00:00:00 Completed [facility] Varicella (varivax)(chicken pox) 2004-07-22 00:00:00 Completed [facility] DTAP 2004-07-22 00:00:00 Completed [facility] Hep B, Adol or Pedi Dosage 2004-07-22 00:00:00 Completed [facility] MMR 2004-07-22 00:00:00 Completed [facility] Polio (IPV/OPV) 2004-07-22 00:00:00 Completed [facility] Varicella (varivax)(chicken pox) 2004-07-22 00:00:00 Completed [facility] DTAP 2004-07-22 00:00:00 Completed [facility] Hep B, Adol or Pedi Dosage 2004-07-22 00:00:00 Completed [facility] MMR 2004-07-22 00:00:00 Completed [facility] Polio (IPV/OPV) 2004-07-22 00:00:00 Completed [facility] Varicella (varivax)(chicken pox) 2004-07-22 00:00:00 Completed [facility] DTAP 2004-07-22 00:00:00 Completed [facility] Hep B, Adol or Pedi Dosage 2004-07-22 00:00:00 Completed [facility] MMR 2004-07-22 00:00:00 Completed [facility] Polio (IPV/OPV) 2004-07-22 00:00:00 Completed [facility] Varicella (varivax)(chicken pox) 2004-07-22 00:00:00 Completed [facility] DTAP 2004-07-22 00:00:00 Completed [facility] Hep B, Adol or Pedi Dosage 2004-07-22 00:00:00 Completed [facility] MMR 2004-07-22 00:00:00 Completed [facility] Polio (IPV/OPV) 2004-07-22 00:00:00 Completed [facility] Varicella (varivax)(chicken pox) 2004-07-22 00:00:00 Completed [facility] DTAP 2004-07-22 00:00:00 Completed [facility] Hep B, Adol or Pedi Dosage 2004-07-22 00:00:00 Completed [facility] MMR 2004-07-22 00:00:00 Completed [facility] Polio (IPV/OPV) 2004-07-22 00:00:00 Completed [facility] Varicella (varivax)(chicken pox) 2004-07-22 00:00:00 Completed [facility] DTAP 2004-07-22 00:00:00 Completed [facility] Hep B, Adol or Pedi Dosage 2004-07-22 00:00:00 Completed [facility] MMR 2004-07-22 00:00:00 Completed [facility] Polio (IPV/OPV) 2004-07-22 00:00:00 Completed [facility] Varicella (varivax)(chicken pox) 2004-07-22 00:00:00 Completed [facility] DTAP 2004-07-22 00:00:00 Completed [facility] Hep B, Adol or Pedi Dosage 2004-07-22 00:00:00 Completed [facility] MMR 2004-07-22 00:00:00 Completed [facility] Polio (IPV/OPV) 2004-07-22 00:00:00 Completed [facility] Varicella (varivax)(chicken pox) 2004-07-22 00:00:00 Completed [facility] DTAP 2004-07-22 00:00:00 Completed [facility] Hep B, Adol or Pedi Dosage 2004-07-22 00:00:00 Completed [facility] MMR 2004-07-22 00:00:00 Completed [facility] Polio (IPV/OPV) 2004-07-22 00:00:00 Completed [facility] Varicella (varivax)(chicken pox) 2004-07-22 00:00:00 Completed [facility] DTAP 2004-07-22 00:00:00 Completed [facility] Hep B, Adol or Pedi Dosage 2004-07-22 00:00:00 Completed [facility] MMR 2004-07-22 00:00:00 Completed [facility] Polio (IPV/OPV) 2004-07-22 00:00:00 Completed [facility] Varicella (varivax)(chicken pox) 2004-07-22 00:00:00 Completed [facility] DTAP 2004-07-22 00:00:00 Completed [facility] Hep B, Adol or Pedi Dosage 2004-07-22 00:00:00 Completed [facility] MMR 2004-07-22 00:00:00 Completed [facility] Polio (IPV/OPV) 2004-07-22 00:00:00 Completed [facility] Varicella (varivax)(chicken pox) 2004-07-22 00:00:00 Completed [facility] DTAP 2004-07-22 00:00:00 Completed [facility] Hep B, Adol or Pedi Dosage 2004-07-22 00:00:00 Completed [facility] MMR 2004-07-22 00:00:00 Completed [facility] Polio (IPV/OPV) 2004-07-22 00:00:00 Completed [facility] Varicella (varivax)(chicken pox) 2004-07-22 00:00:00 Completed [facility] DTAP 2004-07-22 00:00:00 Completed [facility] Hep B, Adol or Pedi Dosage 2004-07-22 00:00:00 Completed [facility] MMR 2004-07-22 00:00:00 Completed [facility] Polio (IPV/OPV) 2004-07-22 00:00:00 Completed [facility] Varicella (varivax)(chicken pox) 2004-07-22 00:00:00 Completed [facility] DTAP 2004-07-22 00:00:00 Completed [facility] Hep B, Adol or Pedi Dosage 2004-07-22 00:00:00 Completed [facility] MMR 2004-07-22 00:00:00 Completed [facility] Polio (IPV/OPV) 2004-07-22 00:00:00 Completed [facility] Varicella (varivax)(chicken pox) 2004-07-22 00:00:00 Completed [facility] DTAP 2004-07-22 00:00:00 Completed [facility] Hep B, Adol or Pedi Dosage 2004-07-22 00:00:00 Completed [facility] MMR 2004-07-22 00:00:00 Completed [facility] Polio (IPV/OPV) 2004-07-22 00:00:00 Completed [facility] Varicella (varivax)(chicken pox) 2004-07-22 00:00:00 Completed [facility] DTAP 2004-07-22 00:00:00 Completed [facility] Hep B, Adol or Pedi Dosage 2004-07-22 00:00:00 Completed [facility] MMR 2004-07-22 00:00:00 Completed [facility] Polio (IPV/OPV) 2004-07-22 00:00:00 Completed [facility] Varicella (varivax)(chicken pox) 2004-07-22 00:00:00 Completed [facility] DTAP 2004-07-22 00:00:00 Completed [facility] Hep B, Adol or Pedi Dosage 2004-07-22 00:00:00 Completed [facility] MMR 2004-07-22 00:00:00 Completed [facility] Polio (IPV/OPV) 2004-07-22 00:00:00 Completed [facility] Varicella (varivax)(chicken pox) 2004-07-22 00:00:00 Completed [facility] DTAP 2004-07-22 00:00:00 Completed [facility] Hep B, Adol or Pedi Dosage 2004-07-22 00:00:00 Completed [facility] MMR 2004-07-22 00:00:00 Completed [facility] Polio (IPV/OPV) 2004-07-22 00:00:00 Completed [facility] Varicella (varivax)(chicken pox) 2004-07-22 00:00:00 Completed [facility] DTAP 2004-07-22 00:00:00 Completed [facility] Hep B, Adol or Pedi Dosage 2004-07-22 00:00:00 Completed [facility] MMR 2004-07-22 00:00:00 Completed [facility] Polio (IPV/OPV) 2004-07-22 00:00:00 Completed [facility] Varicella (varivax)(chicken pox) 2004-07-22 00:00:00 Completed [facility] DTAP 2004-07-22 00:00:00 Completed [facility] Hep B, Adol or Pedi Dosage 2004-07-22 00:00:00 Completed [facility] MMR 2004-07-22 00:00:00 Completed [facility] Polio (IPV/OPV) 2004-07-22 00:00:00 Completed [facility] Varicella (varivax)(chicken pox) 2004-07-22 00:00:00 Completed [facility] DTAP 2004-07-22 00:00:00 Completed [facility] Hep B, Adol or Pedi Dosage 2004-07-22 00:00:00 Completed [facility] MMR 2004-07-22 00:00:00 Completed [facility] Polio (IPV/OPV) 2004-07-22 00:00:00 Completed [facility] Varicella (varivax)(chicken pox) 2004-07-22 00:00:00 Completed [facility] DTAP 2004-07-22 00:00:00 Completed [facility] Hep B, Adol or Pedi Dosage 2004-07-22 00:00:00 Completed [facility] MMR 2004-07-22 00:00:00 Completed [facility] Polio (IPV/OPV) 2004-07-22 00:00:00 Completed [facility] Varicella (varivax)(chicken pox) 2004-07-22 00:00:00 Completed [facility] DTAP 2004-07-22 00:00:00 Completed [facility] Hep B, Adol or Pedi Dosage 2004-07-22 00:00:00 Completed [facility] MMR 2004-07-22 00:00:00 Completed [facility] Polio (IPV/OPV) 2004-07-22 00:00:00 Completed [facility] Varicella (varivax)(chicken pox) 2004-07-22 00:00:00 Completed [facility] DTaP, Unspecified Formulation 2004-07-22 00:00:00 Completed [facility] IPV 2004-07-22 00:00:00 Completed [facility] DTAP 2004-07-22 00:00:00 Completed [facility] Hep B, Adol or Pedi Dosage 2004-07-22 00:00:00 Completed [facility] MMR 2004-07-22 00:00:00 Completed [facility] Polio (IPV/OPV) 2004-07-22 00:00:00 Completed [facility] Varicella (varivax)(chicken pox) 2004-07-22 00:00:00 Completed [facility] DTaP, Unspecified Formulation 2004-07-22 00:00:00 Completed [facility] IPV 2004-07-22 00:00:00 Completed [facility] DTAP 2004-07-22 00:00:00 Completed [facility] Hep B, Adol or Pedi Dosage 2004-07-22 00:00:00 Completed [facility] MMR 2004-07-22 00:00:00 Completed [facility] Polio (IPV/OPV) 2004-07-22 00:00:00 Completed [facility] Varicella (varivax)(chicken pox) 2004-07-22 00:00:00 Completed [facility] DTaP, Unspecified Formulation 2004-07-22 00:00:00 Completed [facility] IPV 2004-07-22 00:00:00 Completed [facility] DTAP 2004-07-22 00:00:00 Completed [facility] Hep B, Adol or Pedi Dosage 2004-07-22 00:00:00 Completed [facility] MMR 2004-07-22 00:00:00 Completed [facility] Polio (IPV/OPV) 2004-07-22 00:00:00 Completed [facility] Varicella (varivax)(chicken pox) 2004-07-22 00:00:00 Completed [facility] DTaP, Unspecified Formulation 2004-07-22 00:00:00 Completed [facility] IPV 2004-07-22 00:00:00 Completed [facility] DTAP 2004-07-22 00:00:00 Completed [facility] Hep B, Adol or Pedi Dosage 2004-07-22 00:00:00 Completed [facility] MMR 2004-07-22 00:00:00 Completed [facility] Polio (IPV/OPV) 2004-07-22 00:00:00 Completed [facility] Varicella (varivax)(chicken pox) 2004-07-22 00:00:00 Completed [facility] DTaP, Unspecified Formulation 2004-07-22 00:00:00 Completed [facility] IPV 2004-07-22 00:00:00 Completed [facility] DTAP 2004-07-22 00:00:00 Completed [facility] Hep B, Adol or Pedi Dosage 2004-07-22 00:00:00 Completed [facility] MMR 2004-07-22 00:00:00 Completed [facility] Polio (IPV/OPV) 2004-07-22 00:00:00 Completed [facility] Varicella (varivax)(chicken pox) 2004-07-22 00:00:00 Completed [facility] DTaP, Unspecified Formulation 2004-07-22 00:00:00 Completed [facility] IPV 2004-07-22 00:00:00 Completed [facility] DTAP 2004-07-22 00:00:00 Completed [facility] Hep B, Adol or Pedi Dosage 2004-07-22 00:00:00 Completed [facility] MMR 2004-07-22 00:00:00 Completed [facility] Polio (IPV/OPV) 2004-07-22 00:00:00 Completed [facility] Varicella (varivax)(chicken pox) 2004-07-22 00:00:00 Completed [facility] DTaP, Unspecified Formulation 2004-07-22 00:00:00 Completed [facility] IPV 2004-07-22 00:00:00 Completed [facility] DTAP 2004-07-22 00:00:00 Completed [facility] Hep B, Adol or Pedi Dosage 2004-07-22 00:00:00 Completed [facility] MMR 2004-07-22 00:00:00 Completed [facility] Polio (IPV/OPV) 2004-07-22 00:00:00 Completed [facility] Varicella (varivax)(chicken pox) 2004-07-22 00:00:00 Completed [facility] DTaP, Unspecified Formulation 2004-07-22 00:00:00 Completed [facility] IPV 2004-07-22 00:00:00 Completed [facility] DTAP 2004-07-22 00:00:00 Completed [facility] Hep B, Adol or Pedi Dosage 2004-07-22 00:00:00 Completed [facility] MMR 2004-07-22 00:00:00 Completed [facility] Polio (IPV/OPV) 2004-07-22 00:00:00 Completed [facility] Varicella (varivax)(chicken pox) 2004-07-22 00:00:00 Completed [facility] DTaP, Unspecified Formulation 2004-07-22 00:00:00 Completed [facility] IPV 2004-07-22 00:00:00 Completed [facility] DTAP 2004-07-22 00:00:00 Completed [facility] Hep B, Adol or Pedi Dosage 2004-07-22 00:00:00 Completed [facility] MMR 2004-07-22 00:00:00 Completed [facility] Polio (IPV/OPV) 2004-07-22 00:00:00 Completed [facility] Varicella (varivax)(chicken pox) 2004-07-22 00:00:00 Completed [facility] DTaP, Unspecified Formulation 2004-07-22 00:00:00 Completed [facility] IPV 2004-07-22 00:00:00 Completed [facility] DTAP 2004-07-22 00:00:00 Completed [facility] Hep B, Adol or Pedi Dosage 2004-07-22 00:00:00 Completed [facility] MMR 2004-07-22 00:00:00 Completed [facility] Polio (IPV/OPV) 2004-07-22 00:00:00 Completed [facility] Varicella (varivax)(chicken pox) 2004-07-22 00:00:00 Completed [facility] DTaP, Unspecified Formulation 2004-07-22 00:00:00 Completed [facility] IPV 2004-07-22 00:00:00 Completed [facility] DTAP 2004-07-22 00:00:00 Completed [facility] Hep B, Adol or Pedi Dosage 2004-07-22 00:00:00 Completed [facility] MMR 2004-07-22 00:00:00 Completed [facility] Polio (IPV/OPV) 2004-07-22 00:00:00 Completed [facility] Varicella (varivax)(chicken pox) 2004-07-22 00:00:00 Completed [facility] DTaP, Unspecified Formulation 2004-07-22 00:00:00 Completed [facility] IPV 2004-07-22 00:00:00 Completed [facility] DTAP 2004-07-22 00:00:00 Completed [facility] Hep B, Adol or Pedi Dosage 2004-07-22 00:00:00 Completed [facility] MMR 2004-07-22 00:00:00 Completed [facility] Polio (IPV/OPV) 2004-07-22 00:00:00 Completed [facility] Varicella (varivax)(chicken pox) 2004-07-22 00:00:00 Completed [facility] DTaP, Unspecified Formulation 2004-07-22 00:00:00 Completed [facility] IPV 2004-07-22 00:00:00 Completed [facility] DTAP 2004-07-22 00:00:00 Completed [facility] Hep B, Adol or Pedi Dosage 2004-07-22 00:00:00 Completed [facility] MMR 2004-07-22 00:00:00 Completed [facility] Polio (IPV/OPV) 2004-07-22 00:00:00 Completed [facility] Varicella (varivax)(chicken pox) 2004-07-22 00:00:00 Completed [facility] DTaP, Unspecified Formulation 2004-07-22 00:00:00 Completed [facility] IPV 2004-07-22 00:00:00 Completed [facility] DTAP 2004-07-22 00:00:00 Completed [facility] Hep B, Adol or Pedi Dosage 2004-07-22 00:00:00 Completed [facility] MMR 2004-07-22 00:00:00 Completed [facility] Polio (IPV/OPV) 2004-07-22 00:00:00 Completed [facility] Varicella (varivax)(chicken pox) 2004-07-22 00:00:00 Completed [facility] DTaP, Unspecified Formulation 2004-07-22 00:00:00 Completed [facility] IPV 2004-07-22 00:00:00 Completed [facility] DTAP 2004-07-22 00:00:00 Completed [facility] Hep B, Adol or Pedi Dosage 2004-07-22 00:00:00 Completed [facility] MMR 2004-07-22 00:00:00 Completed [facility] Polio (IPV/OPV) 2004-07-22 00:00:00 Completed [facility] Varicella (varivax)(chicken pox) 2004-07-22 00:00:00 Completed [facility] DTaP, Unspecified Formulation 2004-07-22 00:00:00 Completed [facility] IPV 2004-07-22 00:00:00 Completed [facility] DTAP 2004-07-22 00:00:00 Completed [facility] Hep B, Adol or Pedi Dosage 2004-07-22 00:00:00 Completed [facility] MMR 2004-07-22 00:00:00 Completed [facility] Polio (IPV/OPV) 2004-07-22 00:00:00 Completed [facility] Varicella (varivax)(chicken pox) 2004-07-22 00:00:00 Completed [facility] DTaP, Unspecified Formulation 2004-07-22 00:00:00 Completed [facility] IPV 2004-07-22 00:00:00 Completed [facility] DTAP 2004-07-22 00:00:00 Completed [facility] Hep B, Adol or Pedi Dosage 2004-07-22 00:00:00 Completed [facility] MMR 2004-07-22 00:00:00 Completed [facility] Polio (IPV/OPV) 2004-07-22 00:00:00 Completed [facility] Varicella (varivax)(chicken pox) 2004-07-22 00:00:00 Completed [facility] DTaP, Unspecified Formulation 2004-07-22 00:00:00 Completed [facility] IPV 2004-07-22 00:00:00 Completed [facility] DTAP 2004-07-22 00:00:00 Completed [facility] Hep B, Adol or Pedi Dosage 2004-07-22 00:00:00 Completed [facility] MMR 2004-07-22 00:00:00 Completed [facility] Polio (IPV/OPV) 2004-07-22 00:00:00 Completed [facility] Varicella (varivax)(chicken pox) 2004-07-22 00:00:00 Completed [facility] DTaP, Unspecified Formulation 2004-07-22 00:00:00 Completed [facility] IPV 2004-07-22 00:00:00 Completed [facility] DTAP 2004-07-22 00:00:00 Completed [facility] Hep B, Adol or Pedi Dosage 2004-07-22 00:00:00 Completed [facility] MMR 2004-07-22 00:00:00 Completed [facility] Polio (IPV/OPV) 2004-07-22 00:00:00 Completed [facility] Varicella (varivax)(chicken pox) 2004-07-22 00:00:00 Completed [facility] DTaP, Unspecified Formulation 2004-07-22 00:00:00 Completed [facility] IPV 2004-07-22 00:00:00 Completed [facility] DTAP 2004-07-22 00:00:00 Completed [facility] Hep B, Adol or Pedi Dosage 2004-07-22 00:00:00 Completed [facility] MMR 2004-07-22 00:00:00 Completed [facility] Polio (IPV/OPV) 2004-07-22 00:00:00 Completed [facility] Varicella (varivax)(chicken pox) 2004-07-22 00:00:00 Completed [facility] DTaP, Unspecified Formulation 2004-07-22 00:00:00 Completed [facility] IPV 2004-07-22 00:00:00 Completed [facility] DTAP 2004-07-22 00:00:00 Completed [facility] Hep B, Adol or Pedi Dosage 2004-07-22 00:00:00 Completed [facility] MMR 2004-07-22 00:00:00 Completed [facility] Polio (IPV/OPV) 2004-07-22 00:00:00 Completed [facility] Varicella (varivax)(chicken pox) 2004-07-22 00:00:00 Completed [facility] DTaP, Unspecified Formulation 2004-07-22 00:00:00 Completed [facility] IPV 2004-07-22 00:00:00 Completed [facility] DTAP 2004-07-22 00:00:00 Completed [facility] Hep B, Adol or Pedi Dosage 2004-07-22 00:00:00 Completed [facility] MMR 2004-07-22 00:00:00 Completed [facility] Polio (IPV/OPV) 2004-07-22 00:00:00 Completed [facility] Varicella (varivax)(chicken pox) 2004-07-22 00:00:00 Completed [facility] DTaP, Unspecified Formulation 2004-07-22 00:00:00 Completed [facility] IPV 2004-07-22 00:00:00 Completed [facility] DTAP 2004-07-22 00:00:00 Completed [facility] Hep B, Adol or Pedi Dosage 2004-07-22 00:00:00 Completed [facility] MMR 2004-07-22 00:00:00 Completed [facility] Polio (IPV/OPV) 2004-07-22 00:00:00 Completed [facility] Varicella (varivax)(chicken pox) 2004-07-22 00:00:00 Completed [facility] DTaP, Unspecified Formulation 2004-07-22 00:00:00 Completed [facility] IPV 2004-07-22 00:00:00 Completed [facility] DTAP 2004-07-22 00:00:00 Completed [facility] Hep B, Adol or Pedi Dosage 2004-07-22 00:00:00 Completed [facility] MMR 2004-07-22 00:00:00 Completed [facility] Polio (IPV/OPV) 2004-07-22 00:00:00 Completed [facility] Varicella (varivax)(chicken pox) 2004-07-22 00:00:00 Completed [facility] DTaP, Unspecified Formulation 2004-07-22 00:00:00 Completed [facility] IPV 2004-07-22 00:00:00 Completed [facility] DTAP 2004-07-22 00:00:00 Completed [facility] Hep B, Adol or Pedi Dosage 2004-07-22 00:00:00 Completed [facility] MMR 2004-07-22 00:00:00 Completed [facility] Polio (IPV/OPV) 2004-07-22 00:00:00 Completed [facility] Varicella (varivax)(chicken pox) 2004-07-22 00:00:00 Completed [facility] DTaP, Unspecified Formulation 2004-07-22 00:00:00 Completed [facility] IPV 2004-07-22 00:00:00 Completed [facility] DTAP 2003-06-04 00:00:00 Completed [facility] HIB 3 Dose Schedule 2003-06-04 00:00:00 Completed [facility] Hep B, Adol or Pedi Dosage 2003-06-04 00:00:00 Completed [facility] MMR 2003-06-04 00:00:00 Completed [facility] Polio (IPV/OPV) 2003-06-04 00:00:00 Completed [facility] Varicella (varivax)(chicken pox) 2003-06-04 00:00:00 Completed [facility] DTAP 2003-06-04 00:00:00 Completed [facility] HIB 3 Dose Schedule 2003-06-04 00:00:00 Completed [facility] Hep B, Adol or Pedi Dosage 2003-06-04 00:00:00 Completed [facility] MMR 2003-06-04 00:00:00 Completed [facility] Polio (IPV/OPV) 2003-06-04 00:00:00 Completed [facility] Varicella (varivax)(chicken pox) 2003-06-04 00:00:00 Completed [facility] DTAP 2003-06-04 00:00:00 Completed [facility] HIB 3 Dose Schedule 2003-06-04 00:00:00 Completed [facility] Hep B, Adol or Pedi Dosage 2003-06-04 00:00:00 Completed [facility] MMR 2003-06-04 00:00:00 Completed [facility] Polio (IPV/OPV) 2003-06-04 00:00:00 Completed [facility] Varicella (varivax)(chicken pox) 2003-06-04 00:00:00 Completed [facility] DTAP 2003-06-04 00:00:00 Completed [facility] HIB 3 Dose Schedule 2003-06-04 00:00:00 Completed [facility] Hep B, Adol or Pedi Dosage 2003-06-04 00:00:00 Completed [facility] MMR 2003-06-04 00:00:00 Completed [facility] Polio (IPV/OPV) 2003-06-04 00:00:00 Completed [facility] Varicella (varivax)(chicken pox) 2003-06-04 00:00:00 Completed [facility] DTAP 2003-06-04 00:00:00 Completed [facility] HIB 3 Dose Schedule 2003-06-04 00:00:00 Completed [facility] Hep B, Adol or Pedi Dosage 2003-06-04 00:00:00 Completed [facility] MMR 2003-06-04 00:00:00 Completed [facility] Polio (IPV/OPV) 2003-06-04 00:00:00 Completed [facility] Varicella (varivax)(chicken pox) 2003-06-04 00:00:00 Completed [facility] DTAP 2003-06-04 00:00:00 Completed [facility] HIB 3 Dose Schedule 2003-06-04 00:00:00 Completed [facility] Hep B, Adol or Pedi Dosage 2003-06-04 00:00:00 Completed [facility] MMR 2003-06-04 00:00:00 Completed [facility] Polio (IPV/OPV) 2003-06-04 00:00:00 Completed [facility] Varicella (varivax)(chicken pox) 2003-06-04 00:00:00 Completed [facility] DTAP 2003-06-04 00:00:00 Completed [facility] HIB 3 Dose Schedule 2003-06-04 00:00:00 Completed [facility] Hep B, Adol or Pedi Dosage 2003-06-04 00:00:00 Completed [facility] MMR 2003-06-04 00:00:00 Completed [facility] Polio (IPV/OPV) 2003-06-04 00:00:00 Completed [facility] Varicella (varivax)(chicken pox) 2003-06-04 00:00:00 Completed [facility] DTAP 2003-06-04 00:00:00 Completed [facility] HIB 3 Dose Schedule 2003-06-04 00:00:00 Completed [facility] Hep B, Adol or Pedi Dosage 2003-06-04 00:00:00 Completed [facility] MMR 2003-06-04 00:00:00 Completed [facility] Polio (IPV/OPV) 2003-06-04 00:00:00 Completed [facility] Varicella (varivax)(chicken pox) 2003-06-04 00:00:00 Completed [facility] DTAP 2003-06-04 00:00:00 Completed [facility] HIB 3 Dose Schedule 2003-06-04 00:00:00 Completed [facility] Hep B, Adol or Pedi Dosage 2003-06-04 00:00:00 Completed [facility] MMR 2003-06-04 00:00:00 Completed [facility] Polio (IPV/OPV) 2003-06-04 00:00:00 Completed [facility] Varicella (varivax)(chicken pox) 2003-06-04 00:00:00 Completed [facility] DTAP 2003-06-04 00:00:00 Completed [facility] HIB 3 Dose Schedule 2003-06-04 00:00:00 Completed [facility] Hep B, Adol or Pedi Dosage 2003-06-04 00:00:00 Completed [facility] MMR 2003-06-04 00:00:00 Completed [facility] Polio (IPV/OPV) 2003-06-04 00:00:00 Completed [facility] Varicella (varivax)(chicken pox) 2003-06-04 00:00:00 Completed [facility] DTAP 2003-06-04 00:00:00 Completed [facility] HIB 3 Dose Schedule 2003-06-04 00:00:00 Completed [facility] Hep B, Adol or Pedi Dosage 2003-06-04 00:00:00 Completed [facility] MMR 2003-06-04 00:00:00 Completed [facility] Polio (IPV/OPV) 2003-06-04 00:00:00 Completed [facility] Varicella (varivax)(chicken pox) 2003-06-04 00:00:00 Completed [facility] DTAP 2003-06-04 00:00:00 Completed [facility] HIB 3 Dose Schedule 2003-06-04 00:00:00 Completed [facility] Hep B, Adol or Pedi Dosage 2003-06-04 00:00:00 Completed [facility] MMR 2003-06-04 00:00:00 Completed [facility] Polio (IPV/OPV) 2003-06-04 00:00:00 Completed [facility] Varicella (varivax)(chicken pox) 2003-06-04 00:00:00 Completed [facility] DTAP 2003-06-04 00:00:00 Completed [facility] HIB 3 Dose Schedule 2003-06-04 00:00:00 Completed [facility] Hep B, Adol or Pedi Dosage 2003-06-04 00:00:00 Completed [facility] MMR 2003-06-04 00:00:00 Completed [facility] Polio (IPV/OPV) 2003-06-04 00:00:00 Completed [facility] Varicella (varivax)(chicken pox) 2003-06-04 00:00:00 Completed [facility] DTAP 2003-06-04 00:00:00 Completed [facility] HIB 3 Dose Schedule 2003-06-04 00:00:00 Completed [facility] Hep B, Adol or Pedi Dosage 2003-06-04 00:00:00 Completed [facility] MMR 2003-06-04 00:00:00 Completed [facility] Polio (IPV/OPV) 2003-06-04 00:00:00 Completed [facility] Varicella (varivax)(chicken pox) 2003-06-04 00:00:00 Completed [facility] DTAP 2003-06-04 00:00:00 Completed [facility] HIB 3 Dose Schedule 2003-06-04 00:00:00 Completed [facility] Hep B, Adol or Pedi Dosage 2003-06-04 00:00:00 Completed [facility] MMR 2003-06-04 00:00:00 Completed [facility] Polio (IPV/OPV) 2003-06-04 00:00:00 Completed [facility] Varicella (varivax)(chicken pox) 2003-06-04 00:00:00 Completed [facility] DTAP 2003-06-04 00:00:00 Completed [facility] HIB 3 Dose Schedule 2003-06-04 00:00:00 Completed [facility] Hep B, Adol or Pedi Dosage 2003-06-04 00:00:00 Completed [facility] MMR 2003-06-04 00:00:00 Completed [facility] Polio (IPV/OPV) 2003-06-04 00:00:00 Completed [facility] Varicella (varivax)(chicken pox) 2003-06-04 00:00:00 Completed [facility] DTAP 2003-06-04 00:00:00 Completed [facility] HIB 3 Dose Schedule 2003-06-04 00:00:00 Completed [facility] Hep B, Adol or Pedi Dosage 2003-06-04 00:00:00 Completed [facility] MMR 2003-06-04 00:00:00 Completed [facility] Polio (IPV/OPV) 2003-06-04 00:00:00 Completed [facility] Varicella (varivax)(chicken pox) 2003-06-04 00:00:00 Completed [facility] DTAP 2003-06-04 00:00:00 Completed [facility] HIB 3 Dose Schedule 2003-06-04 00:00:00 Completed [facility] Hep B, Adol or Pedi Dosage 2003-06-04 00:00:00 Completed [facility] MMR 2003-06-04 00:00:00 Completed [facility] Polio (IPV/OPV) 2003-06-04 00:00:00 Completed [facility] Varicella (varivax)(chicken pox) 2003-06-04 00:00:00 Completed [facility] DTAP 2003-06-04 00:00:00 Completed [facility] HIB 3 Dose Schedule 2003-06-04 00:00:00 Completed [facility] Hep B, Adol or Pedi Dosage 2003-06-04 00:00:00 Completed [facility] MMR 2003-06-04 00:00:00 Completed [facility] Polio (IPV/OPV) 2003-06-04 00:00:00 Completed [facility] Varicella (varivax)(chicken pox) 2003-06-04 00:00:00 Completed [facility] DTAP 2003-06-04 00:00:00 Completed [facility] HIB 3 Dose Schedule 2003-06-04 00:00:00 Completed [facility] Hep B, Adol or Pedi Dosage 2003-06-04 00:00:00 Completed [facility] MMR 2003-06-04 00:00:00 Completed [facility] Polio (IPV/OPV) 2003-06-04 00:00:00 Completed [facility] Varicella (varivax)(chicken pox) 2003-06-04 00:00:00 Completed [facility] DTAP 2003-06-04 00:00:00 Completed [facility] HIB 3 Dose Schedule 2003-06-04 00:00:00 Completed [facility] Hep B, Adol or Pedi Dosage 2003-06-04 00:00:00 Completed [facility] MMR 2003-06-04 00:00:00 Completed [facility] Polio (IPV/OPV) 2003-06-04 00:00:00 Completed [facility] Varicella (varivax)(chicken pox) 2003-06-04 00:00:00 Completed [facility] DTAP 2003-06-04 00:00:00 Completed [facility] HIB 3 Dose Schedule 2003-06-04 00:00:00 Completed [facility] Hep B, Adol or Pedi Dosage 2003-06-04 00:00:00 Completed [facility] MMR 2003-06-04 00:00:00 Completed [facility] Polio (IPV/OPV) 2003-06-04 00:00:00 Completed [facility] Varicella (varivax)(chicken pox) 2003-06-04 00:00:00 Completed [facility] DTAP 2003-06-04 00:00:00 Completed [facility] HIB 3 Dose Schedule 2003-06-04 00:00:00 Completed [facility] Hep B, Adol or Pedi Dosage 2003-06-04 00:00:00 Completed [facility] MMR 2003-06-04 00:00:00 Completed [facility] Polio (IPV/OPV) 2003-06-04 00:00:00 Completed [facility] Varicella (varivax)(chicken pox) 2003-06-04 00:00:00 Completed [facility] DTAP 2003-06-04 00:00:00 Completed [facility] HIB 3 Dose Schedule 2003-06-04 00:00:00 Completed [facility] Hep B, Adol or Pedi Dosage 2003-06-04 00:00:00 Completed [facility] MMR 2003-06-04 00:00:00 Completed [facility] Polio (IPV/OPV) 2003-06-04 00:00:00 Completed [facility] Varicella (varivax)(chicken pox) 2003-06-04 00:00:00 Completed [facility] DTAP 2003-06-04 00:00:00 Completed [facility] HIB 3 Dose Schedule 2003-06-04 00:00:00 Completed [facility] Hep B, Adol or Pedi Dosage 2003-06-04 00:00:00 Completed [facility] MMR 2003-06-04 00:00:00 Completed [facility] Polio (IPV/OPV) 2003-06-04 00:00:00 Completed [facility] Varicella (varivax)(chicken pox) 2003-06-04 00:00:00 Completed [facility] DTAP 2003-06-04 00:00:00 Completed [facility] HIB 3 Dose Schedule 2003-06-04 00:00:00 Completed [facility] Hep B, Adol or Pedi Dosage 2003-06-04 00:00:00 Completed [facility] MMR 2003-06-04 00:00:00 Completed [facility] Polio (IPV/OPV) 2003-06-04 00:00:00 Completed [facility] Varicella (varivax)(chicken pox) 2003-06-04 00:00:00 Completed [facility] DTAP 2003-06-04 00:00:00 Completed [facility] HIB 3 Dose Schedule 2003-06-04 00:00:00 Completed [facility] Hep B, Adol or Pedi Dosage 2003-06-04 00:00:00 Completed [facility] MMR 2003-06-04 00:00:00 Completed [facility] Polio (IPV/OPV) 2003-06-04 00:00:00 Completed [facility] Varicella (varivax)(chicken pox) 2003-06-04 00:00:00 Completed [facility] DTAP 2003-06-04 00:00:00 Completed [facility] HIB 3 Dose Schedule 2003-06-04 00:00:00 Completed [facility] Hep B, Adol or Pedi Dosage 2003-06-04 00:00:00 Completed [facility] MMR 2003-06-04 00:00:00 Completed [facility] Polio (IPV/OPV) 2003-06-04 00:00:00 Completed [facility] Varicella (varivax)(chicken pox) 2003-06-04 00:00:00 Completed [facility] DTAP 2003-06-04 00:00:00 Completed [facility] HIB 3 Dose Schedule 2003-06-04 00:00:00 Completed [facility] Hep B, Adol or Pedi Dosage 2003-06-04 00:00:00 Completed [facility] MMR 2003-06-04 00:00:00 Completed [facility] Polio (IPV/OPV) 2003-06-04 00:00:00 Completed [facility] Varicella (varivax)(chicken pox) 2003-06-04 00:00:00 Completed [facility] DTAP 2003-06-04 00:00:00 Completed [facility] HIB 3 Dose Schedule 2003-06-04 00:00:00 Completed [facility] Hep B, Adol or Pedi Dosage 2003-06-04 00:00:00 Completed [facility] MMR 2003-06-04 00:00:00 Completed [facility] Polio (IPV/OPV) 2003-06-04 00:00:00 Completed [facility] Varicella (varivax)(chicken pox) 2003-06-04 00:00:00 Completed [facility] DTAP 2003-06-04 00:00:00 Completed [facility] HIB 3 Dose Schedule 2003-06-04 00:00:00 Completed [facility] Hep B, Adol or Pedi Dosage 2003-06-04 00:00:00 Completed [facility] MMR 2003-06-04 00:00:00 Completed [facility] Polio (IPV/OPV) 2003-06-04 00:00:00 Completed [facility] Varicella (varivax)(chicken pox) 2003-06-04 00:00:00 Completed [facility] DTAP 2003-06-04 00:00:00 Completed [facility] HIB 3 Dose Schedule 2003-06-04 00:00:00 Completed [facility] Hep B, Adol or Pedi Dosage 2003-06-04 00:00:00 Completed [facility] MMR 2003-06-04 00:00:00 Completed [facility] Polio (IPV/OPV) 2003-06-04 00:00:00 Completed [facility] Varicella (varivax)(chicken pox) 2003-06-04 00:00:00 Completed [facility] DTAP 2003-06-04 00:00:00 Completed [facility] HIB 3 Dose Schedule 2003-06-04 00:00:00 Completed [facility] Hep B, Adol or Pedi Dosage 2003-06-04 00:00:00 Completed [facility] MMR 2003-06-04 00:00:00 Completed [facility] Polio (IPV/OPV) 2003-06-04 00:00:00 Completed [facility] Varicella (varivax)(chicken pox) 2003-06-04 00:00:00 Completed [facility] DTAP 2003-06-04 00:00:00 Completed [facility] HIB 3 Dose Schedule 2003-06-04 00:00:00 Completed [facility] Hep B, Adol or Pedi Dosage 2003-06-04 00:00:00 Completed [facility] MMR 2003-06-04 00:00:00 Completed [facility] Polio (IPV/OPV) 2003-06-04 00:00:00 Completed [facility] Varicella (varivax)(chicken pox) 2003-06-04 00:00:00 Completed [facility] DTAP 2003-06-04 00:00:00 Completed [facility] HIB 3 Dose Schedule 2003-06-04 00:00:00 Completed [facility] Hep B, Adol or Pedi Dosage 2003-06-04 00:00:00 Completed [facility] MMR 2003-06-04 00:00:00 Completed [facility] Polio (IPV/OPV) 2003-06-04 00:00:00 Completed [facility] Varicella (varivax)(chicken pox) 2003-06-04 00:00:00 Completed [facility] DTAP 2003-06-04 00:00:00 Completed [facility] HIB 3 Dose Schedule 2003-06-04 00:00:00 Completed [facility] Hep B, Adol or Pedi Dosage 2003-06-04 00:00:00 Completed [facility] MMR 2003-06-04 00:00:00 Completed [facility] Polio (IPV/OPV) 2003-06-04 00:00:00 Completed [facility] Varicella (varivax)(chicken pox) 2003-06-04 00:00:00 Completed [facility] DTAP 2003-06-04 00:00:00 Completed [facility] HIB 3 Dose Schedule 2003-06-04 00:00:00 Completed [facility] Hep B, Adol or Pedi Dosage 2003-06-04 00:00:00 Completed [facility] MMR 2003-06-04 00:00:00 Completed [facility] Polio (IPV/OPV) 2003-06-04 00:00:00 Completed [facility] Varicella (varivax)(chicken pox) 2003-06-04 00:00:00 Completed [facility] DTAP 2003-06-04 00:00:00 Completed [facility] HIB 3 Dose Schedule 2003-06-04 00:00:00 Completed [facility] Hep B, Adol or Pedi Dosage 2003-06-04 00:00:00 Completed [facility] MMR 2003-06-04 00:00:00 Completed [facility] Polio (IPV/OPV) 2003-06-04 00:00:00 Completed [facility] Varicella (varivax)(chicken pox) 2003-06-04 00:00:00 Completed [facility] DTaP, Unspecified Formulation 2003-06-04 00:00:00 Completed [facility] HIB 4 Dose Schedule 2003-06-04 00:00:00 Completed [facility] IPV 2003-06-04 00:00:00 Completed [facility] DTAP 2003-06-04 00:00:00 Completed [facility] HIB 3 Dose Schedule 2003-06-04 00:00:00 Completed [facility] Hep B, Adol or Pedi Dosage 2003-06-04 00:00:00 Completed [facility] MMR 2003-06-04 00:00:00 Completed [facility] Polio (IPV/OPV) 2003-06-04 00:00:00 Completed [facility] Varicella (varivax)(chicken pox) 2003-06-04 00:00:00 Completed [facility] DTaP, Unspecified Formulation 2003-06-04 00:00:00 Completed [facility] HIB 4 Dose Schedule 2003-06-04 00:00:00 Completed [facility] IPV 2003-06-04 00:00:00 Completed [facility] DTAP 2003-06-04 00:00:00 Completed [facility] HIB 3 Dose Schedule 2003-06-04 00:00:00 Completed [facility] Hep B, Adol or Pedi Dosage 2003-06-04 00:00:00 Completed [facility] MMR 2003-06-04 00:00:00 Completed [facility] Polio (IPV/OPV) 2003-06-04 00:00:00 Completed [facility] Varicella (varivax)(chicken pox) 2003-06-04 00:00:00 Completed [facility] DTaP, Unspecified Formulation 2003-06-04 00:00:00 Completed [facility] HIB 4 Dose Schedule 2003-06-04 00:00:00 Completed [facility] IPV 2003-06-04 00:00:00 Completed [facility] DTAP 2003-06-04 00:00:00 Completed [facility] HIB 3 Dose Schedule 2003-06-04 00:00:00 Completed [facility] Hep B, Adol or Pedi Dosage 2003-06-04 00:00:00 Completed [facility] MMR 2003-06-04 00:00:00 Completed [facility] Polio (IPV/OPV) 2003-06-04 00:00:00 Completed [facility] Varicella (varivax)(chicken pox) 2003-06-04 00:00:00 Completed [facility] DTaP, Unspecified Formulation 2003-06-04 00:00:00 Completed [facility] HIB 4 Dose Schedule 2003-06-04 00:00:00 Completed [facility] IPV 2003-06-04 00:00:00 Completed [facility] DTAP 2003-06-04 00:00:00 Completed [facility] HIB 3 Dose Schedule 2003-06-04 00:00:00 Completed [facility] Hep B, Adol or Pedi Dosage 2003-06-04 00:00:00 Completed [facility] MMR 2003-06-04 00:00:00 Completed [facility] Polio (IPV/OPV) 2003-06-04 00:00:00 Completed [facility] Varicella (varivax)(chicken pox) 2003-06-04 00:00:00 Completed [facility] DTaP, Unspecified Formulation 2003-06-04 00:00:00 Completed [facility] HIB 4 Dose Schedule 2003-06-04 00:00:00 Completed [facility] IPV 2003-06-04 00:00:00 Completed [facility] DTAP 2003-06-04 00:00:00 Completed [facility] HIB 3 Dose Schedule 2003-06-04 00:00:00 Completed [facility] Hep B, Adol or Pedi Dosage 2003-06-04 00:00:00 Completed [facility] MMR 2003-06-04 00:00:00 Completed [facility] Polio (IPV/OPV) 2003-06-04 00:00:00 Completed [facility] Varicella (varivax)(chicken pox) 2003-06-04 00:00:00 Completed [facility] DTaP, Unspecified Formulation 2003-06-04 00:00:00 Completed [facility] HIB 4 Dose Schedule 2003-06-04 00:00:00 Completed [facility] IPV 2003-06-04 00:00:00 Completed [facility] DTAP 2003-06-04 00:00:00 Completed [facility] HIB 3 Dose Schedule 2003-06-04 00:00:00 Completed [facility] Hep B, Adol or Pedi Dosage 2003-06-04 00:00:00 Completed [facility] MMR 2003-06-04 00:00:00 Completed [facility] Polio (IPV/OPV) 2003-06-04 00:00:00 Completed [facility] Varicella (varivax)(chicken pox) 2003-06-04 00:00:00 Completed [facility] DTaP, Unspecified Formulation 2003-06-04 00:00:00 Completed [facility] HIB 4 Dose Schedule 2003-06-04 00:00:00 Completed [facility] IPV 2003-06-04 00:00:00 Completed [facility] DTAP 2003-06-04 00:00:00 Completed [facility] HIB 3 Dose Schedule 2003-06-04 00:00:00 Completed [facility] Hep B, Adol or Pedi Dosage 2003-06-04 00:00:00 Completed [facility] MMR 2003-06-04 00:00:00 Completed [facility] Polio (IPV/OPV) 2003-06-04 00:00:00 Completed [facility] Varicella (varivax)(chicken pox) 2003-06-04 00:00:00 Completed [facility] DTaP, Unspecified Formulation 2003-06-04 00:00:00 Completed [facility] HIB 4 Dose Schedule 2003-06-04 00:00:00 Completed [facility] IPV 2003-06-04 00:00:00 Completed [facility] DTAP 2003-06-04 00:00:00 Completed [facility] HIB 3 Dose Schedule 2003-06-04 00:00:00 Completed [facility] Hep B, Adol or Pedi Dosage 2003-06-04 00:00:00 Completed [facility] MMR 2003-06-04 00:00:00 Completed [facility] Polio (IPV/OPV) 2003-06-04 00:00:00 Completed [facility] Varicella (varivax)(chicken pox) 2003-06-04 00:00:00 Completed [facility] DTaP, Unspecified Formulation 2003-06-04 00:00:00 Completed [facility] HIB 4 Dose Schedule 2003-06-04 00:00:00 Completed [facility] IPV 2003-06-04 00:00:00 Completed [facility] DTAP 2003-06-04 00:00:00 Completed [facility] HIB 3 Dose Schedule 2003-06-04 00:00:00 Completed [facility] Hep B, Adol or Pedi Dosage 2003-06-04 00:00:00 Completed [facility] MMR 2003-06-04 00:00:00 Completed [facility] Polio (IPV/OPV) 2003-06-04 00:00:00 Completed [facility] Varicella (varivax)(chicken pox) 2003-06-04 00:00:00 Completed [facility] DTaP, Unspecified Formulation 2003-06-04 00:00:00 Completed [facility] HIB 4 Dose Schedule 2003-06-04 00:00:00 Completed [facility] IPV 2003-06-04 00:00:00 Completed [facility] DTAP 2003-06-04 00:00:00 Completed [facility] HIB 3 Dose Schedule 2003-06-04 00:00:00 Completed [facility] Hep B, Adol or Pedi Dosage 2003-06-04 00:00:00 Completed [facility] MMR 2003-06-04 00:00:00 Completed [facility] Polio (IPV/OPV) 2003-06-04 00:00:00 Completed [facility] Varicella (varivax)(chicken pox) 2003-06-04 00:00:00 Completed [facility] DTaP, Unspecified Formulation 2003-06-04 00:00:00 Completed [facility] HIB 4 Dose Schedule 2003-06-04 00:00:00 Completed [facility] IPV 2003-06-04 00:00:00 Completed [facility] DTAP 2003-06-04 00:00:00 Completed [facility] HIB 3 Dose Schedule 2003-06-04 00:00:00 Completed [facility] Hep B, Adol or Pedi Dosage 2003-06-04 00:00:00 Completed [facility] MMR 2003-06-04 00:00:00 Completed [facility] Polio (IPV/OPV) 2003-06-04 00:00:00 Completed [facility] Varicella (varivax)(chicken pox) 2003-06-04 00:00:00 Completed [facility] DTaP, Unspecified Formulation 2003-06-04 00:00:00 Completed [facility] HIB 4 Dose Schedule 2003-06-04 00:00:00 Completed [facility] IPV 2003-06-04 00:00:00 Completed [facility] DTAP 2003-06-04 00:00:00 Completed [facility] HIB 3 Dose Schedule 2003-06-04 00:00:00 Completed [facility] Hep B, Adol or Pedi Dosage 2003-06-04 00:00:00 Completed [facility] MMR 2003-06-04 00:00:00 Completed [facility] Polio (IPV/OPV) 2003-06-04 00:00:00 Completed [facility] Varicella (varivax)(chicken pox) 2003-06-04 00:00:00 Completed [facility] DTaP, Unspecified Formulation 2003-06-04 00:00:00 Completed [facility] HIB 4 Dose Schedule 2003-06-04 00:00:00 Completed [facility] IPV 2003-06-04 00:00:00 Completed [facility] DTAP 2003-06-04 00:00:00 Completed [facility] HIB 3 Dose Schedule 2003-06-04 00:00:00 Completed [facility] Hep B, Adol or Pedi Dosage 2003-06-04 00:00:00 Completed [facility] MMR 2003-06-04 00:00:00 Completed [facility] Polio (IPV/OPV) 2003-06-04 00:00:00 Completed [facility] Varicella (varivax)(chicken pox) 2003-06-04 00:00:00 Completed [facility] DTaP, Unspecified Formulation 2003-06-04 00:00:00 Completed [facility] HIB 4 Dose Schedule 2003-06-04 00:00:00 Completed [facility] IPV 2003-06-04 00:00:00 Completed [facility] DTAP 2003-06-04 00:00:00 Completed [facility] HIB 3 Dose Schedule 2003-06-04 00:00:00 Completed [facility] Hep B, Adol or Pedi Dosage 2003-06-04 00:00:00 Completed [facility] MMR 2003-06-04 00:00:00 Completed [facility] Polio (IPV/OPV) 2003-06-04 00:00:00 Completed [facility] Varicella (varivax)(chicken pox) 2003-06-04 00:00:00 Completed [facility] DTaP, Unspecified Formulation 2003-06-04 00:00:00 Completed [facility] HIB 4 Dose Schedule 2003-06-04 00:00:00 Completed [facility] IPV 2003-06-04 00:00:00 Completed [facility] DTAP 2003-06-04 00:00:00 Completed [facility] HIB 3 Dose Schedule 2003-06-04 00:00:00 Completed [facility] Hep B, Adol or Pedi Dosage 2003-06-04 00:00:00 Completed [facility] MMR 2003-06-04 00:00:00 Completed [facility] Polio (IPV/OPV) 2003-06-04 00:00:00 Completed [facility] Varicella (varivax)(chicken pox) 2003-06-04 00:00:00 Completed [facility] DTaP, Unspecified Formulation 2003-06-04 00:00:00 Completed [facility] HIB 4 Dose Schedule 2003-06-04 00:00:00 Completed [facility] IPV 2003-06-04 00:00:00 Completed [facility] DTAP 2003-06-04 00:00:00 Completed [facility] HIB 3 Dose Schedule 2003-06-04 00:00:00 Completed [facility] Hep B, Adol or Pedi Dosage 2003-06-04 00:00:00 Completed [facility] MMR 2003-06-04 00:00:00 Completed [facility] Polio (IPV/OPV) 2003-06-04 00:00:00 Completed [facility] Varicella (varivax)(chicken pox) 2003-06-04 00:00:00 Completed [facility] DTaP, Unspecified Formulation 2003-06-04 00:00:00 Completed [facility] HIB 4 Dose Schedule 2003-06-04 00:00:00 Completed [facility] IPV 2003-06-04 00:00:00 Completed [facility] DTAP 2003-06-04 00:00:00 Completed [facility] HIB 3 Dose Schedule 2003-06-04 00:00:00 Completed [facility] Hep B, Adol or Pedi Dosage 2003-06-04 00:00:00 Completed [facility] MMR 2003-06-04 00:00:00 Completed [facility] Polio (IPV/OPV) 2003-06-04 00:00:00 Completed [facility] Varicella (varivax)(chicken pox) 2003-06-04 00:00:00 [facility] [facility] DTaP, Unspecified Formulation 2003-06-04 00:00:00 Completed [facility] HIB 4 Dose Schedule 2003-06-04 00:00:00 Completed [facility] IPV 2003-06-04 00:00:00 Completed [facility] DTAP 2003-06-04 00:00:00 Completed [facility] HIB 3 Dose Schedule 2003-06-04 00:00:00 Completed [facility] Hep B, Adol or Pedi Dosage 2003-06-04 00:00:00 Completed [facility] MMR 2003-06-04 00:00:00 Completed [facility] Polio (IPV/OPV) 2003-06-04 00:00:00 Completed [facility] Varicella (varivax)(chicken pox) 2003-06-04 00:00:00 Completed [facility] DTaP, Unspecified Formulation 2003-06-04 00:00:00 Completed [facility] HIB 4 Dose Schedule 2003-06-04 00:00:00 Completed [facility] IPV 2003-06-04 00:00:00 Completed [facility] DTAP 2003-06-04 00:00:00 Completed [facility] HIB 3 Dose Schedule 2003-06-04 00:00:00 Completed [facility] Hep B, Adol or Pedi Dosage 2003-06-04 00:00:00 Completed [facility] MMR 2003-06-04 00:00:00 Completed [facility] Polio (IPV/OPV) 2003-06-04 00:00:00 Completed [facility] Varicella (varivax)(chicken pox) 2003-06-04 00:00:00 Completed [facility] DTaP, Unspecified Formulation 2003-06-04 00:00:00 Completed [facility] HIB 4 Dose Schedule 2003-06-04 00:00:00 Completed [facility] IPV 2003-06-04 00:00:00 Completed [facility] DTAP 2003-06-04 00:00:00 Completed [facility] HIB 3 Dose Schedule 2003-06-04 00:00:00 Completed [facility] Hep B, Adol or Pedi Dosage 2003-06-04 00:00:00 Completed [facility] MMR 2003-06-04 00:00:00 Completed [facility] Polio (IPV/OPV) 2003-06-04 00:00:00 Completed [facility] Varicella (varivax)(chicken pox) 2003-06-04 00:00:00 Completed [facility] DTaP, Unspecified Formulation 2003-06-04 00:00:00 Completed [facility] HIB 4 Dose Schedule 2003-06-04 00:00:00 Completed [facility] IPV 2003-06-04 00:00:00 Completed [facility] DTAP 2003-06-04 00:00:00 Completed [facility] HIB 3 Dose Schedule 2003-06-04 00:00:00 Completed [facility] Hep B, Adol or Pedi Dosage 2003-06-04 00:00:00 Completed [facility] MMR 2003-06-04 00:00:00 Completed [facility] Polio (IPV/OPV) 2003-06-04 00:00:00 Completed [facility] Varicella (varivax)(chicken pox) 2003-06-04 00:00:00 Completed [facility] DTaP, Unspecified Formulation 2003-06-04 00:00:00 Completed [facility] HIB 4 Dose Schedule 2003-06-04 00:00:00 Completed [facility] IPV 2003-06-04 00:00:00 Completed [facility] DTAP 2003-06-04 00:00:00 Completed [facility] HIB 3 Dose Schedule 2003-06-04 00:00:00 Completed [facility] Hep B, Adol or Pedi Dosage 2003-06-04 00:00:00 Completed [facility] MMR 2003-06-04 00:00:00 Completed [facility] Polio (IPV/OPV) 2003-06-04 00:00:00 Completed [facility] Varicella (varivax)(chicken pox) 2003-06-04 00:00:00 Completed [facility] DTaP, Unspecified Formulation 2003-06-04 00:00:00 Completed [facility] HIB 4 Dose Schedule 2003-06-04 00:00:00 Completed [facility] IPV 2003-06-04 00:00:00 Completed [facility] DTAP 2003-06-04 00:00:00 Completed [facility] HIB 3 Dose Schedule 2003-06-04 00:00:00 Completed [facility] Hep B, Adol or Pedi Dosage 2003-06-04 00:00:00 Completed [facility] MMR 2003-06-04 00:00:00 Completed [facility] Polio (IPV/OPV) 2003-06-04 00:00:00 Completed [facility] Varicella (varivax)(chicken pox) 2003-06-04 00:00:00 Completed [facility] DTaP, Unspecified Formulation 2003-06-04 00:00:00 Completed [facility] HIB 4 Dose Schedule 2003-06-04 00:00:00 Completed [facility] IPV 2003-06-04 00:00:00 Completed [facility] DTAP 2003-06-04 00:00:00 Completed [facility] HIB 3 Dose Schedule 2003-06-04 00:00:00 Completed [facility] Hep B, Adol or Pedi Dosage 2003-06-04 00:00:00 Completed [facility] MMR 2003-06-04 00:00:00 Completed [facility] Polio (IPV/OPV) 2003-06-04 00:00:00 Completed [facility] Varicella (varivax)(chicken pox) 2003-06-04 00:00:00 Completed [facility] DTaP, Unspecified Formulation 2003-06-04 00:00:00 Completed [facility] HIB 4 Dose Schedule 2003-06-04 00:00:00 Completed [facility] IPV 2003-06-04 00:00:00 Completed [facility] DTAP 2003-06-04 00:00:00 Completed [facility] HIB 3 Dose Schedule 2003-06-04 00:00:00 Completed [facility] Hep B, Adol or Pedi Dosage 2003-06-04 00:00:00 Completed [facility] MMR 2003-06-04 00:00:00 Completed [facility] Polio (IPV/OPV) 2003-06-04 00:00:00 Completed [facility] Varicella (varivax)(chicken pox) 2003-06-04 00:00:00 Completed [facility] DTaP, Unspecified Formulation 2003-06-04 00:00:00 Completed [facility] HIB 4 Dose Schedule 2003-06-04 00:00:00 Completed [facility] IPV 2003-06-04 00:00:00 Completed [facility] DTAP Unknown Completed [facility] DTAP Unknown Completed [facility] DTAP Unknown Completed [facility] DTAP Unknown Completed [facility] HIB 3 Dose Schedule Unknown Completed [facility] HIB 3 Dose Schedule Unknown Completed [facility] Hepatitis A Adult Unknown [facility] Com[facility] Hep B, Adol or Pedi Dosage Unknown Completed [facility] Hep B, Adol or Pedi Dosage Unknown Completed [facility] Hep B, Adol or Pedi Dosage Unknown Completed [facility] Meningococcal Vaccine Unknown Completed [facility] MMR Unknown Completed [facility] MMR Unknown Completed [facility] Pneumococcal 13 Conjugate, PCV13 (Prevnar 13) Unknown Completed [facility] Polio (IPV/OPV) Unknown [facility]) [facility] Pol[facility] ([facility]/OPV) Unknown Completed [facility] Polio (IPV/OPV) Unknown Completed [facility] TDAP Unknown Completed [facility] Varicella (varivax)(chicken pox) Unknown Completed [facility] Varicella (varivax)(chicken pox) Unknown Completed [facility] Meningococcal B, OMV Unknown Completed [facility] Influenza Virus Vaccine Quad .5 mL IM 6+ MO (FLUZONE/FLULAVAL/FL UARIX) Unknown Completed [facility] TDAP Unknown Completed [facility] DTaP, Unspecified Formulation Unknown Completed [facility] DTaP, Unspecified Formulation Unknown Completed [facility] DTaP, Unspecified Formulation Unknown Completed [facility] DTaP, Unspecified Formulation Unknown Completed [facility] HEPA,NOS Unknown Completed [facility] HEPATITIS A Unknown Completed [facility] HIB 4 Dose Schedule Unknown Completed [facility] HIB 4 Dose Schedule Unknown Completed [facility] Meningococcal Polysaccharide (groups A, C, Y and W-135) conjugate vaccine (MCV4P) Unknown Completed [facility] Pneumococcal 7 Conjugate, PCV7 (Prevnar7) Unknown Completed [facility] IPV Unknown Completed [facility] IPV Unknown Completed [facility] IPV Unknown [facility]pleted [facility] IPV Unknown Completed [facility] TDAP Unknown Completed [facility] DTAP Unknown Completed [facility] DTAP Unknown Completed [facility] DTAP Unknown Completed [facility] DTAP Unknown Completed [facility] HIB 3 Dose Schedule Unknown Completed [facility] HIB 3 Dose Schedule Unknown Completed [facility] Hepatitis A Adult Unknown [facility] Hep B, Adol or Pedi Dosage Unknown Completed [facility] Hep B, Adol or Pedi Dosage Unknown Completed [facility] Hep B, Adol or Pedi Dosage Unknown Completed [facility] Meningococcal Vaccine Unknown Completed [facility] MMR Unknown Completed [facility] MMR Unknown Completed [facility] Pneumococcal 13 Conjugate, PCV13 (Prevnar 13) Unknown Completed [facility] Polio (IPV/OPV) Unknown Completed [facility] Polio (IPV/OPV) Unknown Completed [facility] Polio (IPV/OPV) Unknown Completed [facility] Polio (IPV/OPV) Unknown Completed [facility] TDAP Unknown Completed [facility] Varicella (varivax)(chicken pox) Unknown Completed [facility] Varicella (varivax)(chicken pox) Unknown Completed [facility] Meningococcal B, OMV Unknown Completed [facility] Influenza Virus Vaccine Quad .5 mL IM 6+ MO (FLUZONE/FLULAVAL/FL UARIX) Unknown Completed [facility] TDAP Unknown Completed [facility] DTaP, Unspecified Formulation Unknown Completed [facility] DTaP, Unspecified Formulation Unknown Completed [facility] DTaP, Unspecified Formulation Unknown Completed [facility] DTaP, Unspecified Formulation Unknown Completed [facility] HEPA,NOS Unknown Completed [facility] HEPATITIS A Unknown Completed [facility] HIB 4 Dose Schedule Unknown Completed [facility] HIB 4 Dose Schedule Unknown Completed [facility] Meningococcal Polysaccharide (groups A, C, Y and W-135) conjugate vaccine (MCV4P) Unknown Completed [facility] Pneumococcal 7 Conjugate, PCV7 (Prevnar7) Unknown Completed [facility] IPV Unknown Completed [facility] IPV Unknown Completed [facility] IPV Unknown Completed [facility] IPV Unknown Completed [facility] TDAP Unknown Completed [facility] DTAP Unknown Completed [facility] DTAP Unknown Completed [facility] DTAP Unknown Completed [facility] DTAP Unknown Completed [facility] HIB 3 Dose Schedule Unknown Completed [facility] HIB 3 Dose Schedule Unknown Completed [facility] Hepatitis A Adult Unknown [facility] Completed [facility] Hep B, Adol or Pedi Dosage Unknown Completed [facility] Hep B, Adol or Pedi Dosage Unknown Completed [facility] Hep B, Adol or Pedi Dosage Unknown Completed [facility] Meningococcal Vaccine Unknown Completed [facility] MMR Unknown Completed [facility] MMR Unknown Completed [facility] Pneumococcal 13 Conjugate, PCV13 (Prevnar 13) Unknown Completed [facility] Polio (IPV/OPV) Unknown Completed [facility] Polio (IPV/OPV) Unknown Completed [facility] Polio (IPV/OPV) Unknown Completed [facility] Polio (IPV/OPV) Unknown Completed [facility] TDAP Unknown Completed [facility] Varicella (varivax)(chicken pox) Unknown Completed [facility] Varicella (varivax)(chicken pox) Unknown Completed [facility] Meningococcal B, OMV Unknown Completed [facility] Influenza Virus Vaccine Quad .5 mL IM 6+ MO (FLUZONE/FLULAVAL/FL UARIX) Unknown Completed [facility] TDAP Unknown Completed [facility] DTaP, Unspecified Formulation Unknown Completed [facility] DTaP, Unspecified Formulation Unknown Completed [facility] DTaP, Unspecified Formulation Unknown Completed [facility] DTaP, Unspecified Formulation Unknown Completed [facility] HEPA,NOS Unknown Completed [facility] HEPATITIS A Unknown Completed [facility] HIB 4 Dose Schedule Unknown Completed [facility] HIB 4 Dose Schedule Unknown Completed [facility] Meningococcal Polysaccharide (groups A, C, Y and W-135) conjugate vaccine (MCV4P) Unknown Completed [facility] Pneumococcal 7 Conjugate, PCV7 (Prevnar7) Unknown Completed [facility] IPV Unknown Completed [facility] IPV Unknown Completed [facility] IPV Unknown [facility]pleted [facility] IPV Unknown Completed [facility] DTAP Unknown Completed [facility] DTAP Unknown Completed [facility] DTAP Unknown Completed [facility] DTAP Unknown Completed [facility] HIB 3 Dose Schedule Unknown Completed [facility] HIB 3 Dose Schedule Unknown Completed [facility] Hepatitis A Adult Unknown [facility] Hep B, Adol or Pedi Dosage Unknown Completed [facility] Hep B, Adol or Pedi Dosage Unknown Completed [facility] Hep B, Adol or Pedi Dosage Unknown Completed [facility] Meningococcal Vaccine Unknown Completed [facility] MMR Unknown Completed [facility] MMR Unknown Completed [facility] Pneumococcal 13 Conjugate, PCV13 (Prevnar 13) Unknown Completed [facility] Polio (IPV/OPV) Unknown Completed [facility] Polio (IPV/OPV) Unknown Completed [facility] Polio (IPV/OPV) Unknown Completed [facility] Polio (IPV/OPV) Unknown Completed [facility] TDAP Unknown Completed [facility] Varicella (varivax)(chicken pox) Unknown Completed [facility] Varicella (varivax)(chicken pox) Unknown Completed [facility] Meningococcal B, OMV Unknown Completed [facility] Influenza Virus Vaccine Quad .5 mL IM 6+ MO (FLUZONE/FLULAVAL/FL UARIX) Unknown Completed [facility] TDAP Unknown Completed [facility] DTaP, Unspecified Formulation Unknown Completed [facility] DTaP, Unspecified Formulation Unknown Completed [facility] DTaP, Unspecified Formulation Unknown Completed [facility] DTaP, Unspecified Formulation Unknown Completed [facility] HEPA,NOS Unknown Completed [facility] HEPATITIS A Unknown Completed [facility] HIB 4 Dose Schedule Unknown Completed [facility] HIB 4 Dose Schedule Unknown Completed [facility] Meningococcal Polysaccharide (groups A, C, Y and W-135) conjugate vaccine (MCV4P) Unknown Completed [facility] Pneumococcal 7 Conjugate, PCV7 (Prevnar7) Unknown Completed [facility] IPV Unknown Completed [facility] IPV Unknown Completed [facility] IPV Unknown Completed [facility] IPV Unknown [facility]pleted [facility] DTAP Unknown Completed [facility] DTAP Unknown Completed [facility] DTAP Unknown Completed [facility] DTAP Unknown Completed [facility] HIB 3 Dose Schedule Unknown Completed [facility] HIB 3 Dose Schedule Unknown Completed [facility] Hepatitis A Adult Unknown Completed [facility] Hepatitis A Adult Unknown Completed [facility] Hep B, Adol or Pedi Dosage Unknown Completed [facility] Hep B, Adol or Pedi Dosage Unknown Completed [facility] Hep B, Adol or Pedi Dosage Unknown Completed [facility] Meningococcal Vaccine Unknown Completed [facility] MMR Unknown Completed [facility] MMR Unknown Completed [facility] Pneumococcal 13 Conjugate, PCV13 (Prevnar 13) Unknown Completed [facility] Polio (IPV/OPV) Unknown Completed [facility] Polio (IPV/OPV) Unknown Completed [facility] Polio (IPV/OPV) Unknown Completed [facility] Polio (IPV/OPV) Unknown Completed [facility] TDAP Unknown Completed [facility] Varicella (varivax)(chicken pox) Unknown Completed [facility] Varicella (varivax)(chicken pox) Unknown Completed [facility] Meningococcal B, OMV Unknown Completed [facility] Influenza Virus Vaccine Quad .5 mL IM 6+ MO (FLUZONE/FLULAVAL/FL UARIX) Unknown Completed [facility] TDAP Unknown Completed [facility] DTaP, Unspecified Formulation Unknown Completed [facility] DTaP, Unspecified Formulation Unknown Completed [facility] DTaP, Unspecified Formulation Unknown Completed [facility] DTaP, Unspecified Formulation Unknown Completed [facility] HEPA,NOS Unknown Completed [facility] HEPATITIS A Unknown Completed [facility] HIB 4 Dose Schedule Unknown Completed [facility] HIB 4 Dose Schedule Unknown Completed [facility] Meningococcal Polysaccharide (groups A, C, Y and W-135) conjugate vaccine (MCV4P) Unknown Completed [facility] Pneumococcal 7 Conjugate, PCV7 (Prevnar7) Unknown Completed [facility] IPV Unknown Completed [facility] IPV Unknown Completed [facility] IPV Unknown Completed [facility] IPV Unknown [facility]pleted [facility] TDAP Unknown [facility]pleted [facility] DTAP Unknown [facility]pleted [facility] DTAP Unknown [facility]pleted [facility] DTAP Unknown Completed [facility] DTAP Unknown Completed [facility] HIB 3 Dose Schedule Unknown Completed [facility] HIB 3 Dose Schedule Unknown Completed [facility] Hepatitis A Adult Unknown Completed [facility]atitis [facility] Adult [facility] Ad[facility] or Pedi Dosage Unknown Completed [facility] Hep B, Adol or Pedi Dosage Unknown Completed [facility] Hep B, Adol or Pedi Dosage Unknown Completed [facility] Meningococcal Vaccine Unknown Completed [facility] MMR Unknown Completed [facility] MMR Unknown Completed [facility] Pneumococcal 13 Conjugate, PCV13 (Prevnar 13) Unknown Completed [facility] Polio (IPV/OPV) Unknown Completed [facility] Polio (IPV/OPV) Unknown Completed [facility] Polio (IPV/OPV) Unknown Completed [facility] Polio (IPV/OPV) Unknown Completed [facility] TDAP Unknown Completed [facility] Varicella (varivax)(chicken pox) Unknown Completed [facility] Varicella (varivax)(chicken pox) Unknown Completed [facility] Meningococcal B, OMV Unknown Completed [facility] Influenza Virus Vaccine Quad .5 mL IM 6+ MO (FLUZONE/FLULAVAL/FL UARIX) Unknown Completed [facility] TDAP Unknown Completed [facility] DTaP, Unspecified Formulation Unknown Completed [facility] DTaP, Unspecified Formulation Unknown Completed [facility] DTaP, Unspecified Formulation Unknown Completed [facility] DTaP, Unspecified Formulation Unknown Completed [facility] HEPA,NOS Unknown Completed [facility] HEPATITIS A Unknown Completed [facility] HIB 4 Dose Schedule Unknown Completed [facility] HIB 4 Dose Schedule Unknown Completed [facility] Meningococcal Polysaccharide (groups A, C, Y and W-135) conjugate vaccine (MCV4P) Unknown Completed [facility] Pneumococcal 7 Conjugate, PCV7 (Prevnar7) Unknown Completed [facility] IPV Unknown Completed [facility] IPV Unknown Completed [facility] IPV Unknown Completed [facility] IPV Unknown Completed [facility] TDAP Unknown Completed [facility] DTAP Unknown Completed [facility] DTAP Unknown Completed [facility] DTAP Unknown Completed [facility] DTAP Unknown Completed [facility] HIB 3 Dose Schedule Unknown Completed [facility] HIB 3 Dose Schedule Unknown Completed [facility] Hepatitis A Adult Unknown [facility] B, Adol or Pedi Dosage Unknown Completed [facility] Hep B, Adol or Pedi Dosage Unknown Completed [facility] Hep B, Adol or Pedi Dosage Unknown Completed [facility] Meningococcal Vaccine Unknown Completed [facility] MMR Unknown Completed [facility] MMR Unknown Completed [facility] Pneumococcal 13 Conjugate, PCV13 (Prevnar 13) Unknown Completed [facility] Polio (IPV/OPV) Unknown Completed [facility] Polio (IPV/OPV) Unknown Completed [facility] Polio (IPV/OPV) Unknown Completed [facility] Polio (IPV/OPV) Unknown Completed [facility] TDAP Unknown Completed [facility] Varicella (varivax)(chicken pox) Unknown Completed [facility] Varicella (varivax)(chicken pox) Unknown Completed [facility] Meningococcal B, OMV Unknown Completed [facility] Influenza Virus Vaccine Quad .5 mL IM 6+ MO (FLUZONE/FLULAVAL/FL UARIX) Unknown Completed [facility] TDAP Unknown Completed [facility] DTaP, Unspecified Formulation Unknown Completed [facility] DTaP, Unspecified Formulation Unknown Completed [facility] DTaP, Unspecified Formulation Unknown Completed [facility] DTaP, Unspecified Formulation Unknown Completed [facility] HEPA,NOS Unknown Completed [facility] HEPATITIS A Unknown Completed [facility] HIB 4 Dose Schedule Unknown Completed [facility] HIB 4 Dose Schedule Unknown Completed [facility] Meningococcal Polysaccharide (groups A, C, Y and W-135) conjugate vaccine (MCV4P) Unknown Completed [facility] Pneumococcal 7 Conjugate, PCV7 (Prevnar7) Unknown Completed [facility] IPV Unknown Completed [facility] IPV Unknown Completed [facility] IPV Unknown Completed [facility] IPV Unknown Completed [facility] TDAP Unknown Completed [facility] DTAP Unknown Completed [facility] DTAP Unknown Completed [facility] DTAP Unknown Completed [facility] DTAP Unknown Completed [facility] HIB 3 Dose Schedule Unknown Completed [facility] HIB 3 Dose Schedule Unknown Completed [facility] Hepatitis A Adult Unknown Completed [facility] Hepatitis A Adult Unknown Completed [facility] Hep B, Adol or Pedi Dosage Unknown Completed [facility] Hep B, Adol or Pedi Dosage Unknown Completed [facility] Hep B, Adol or Pedi Dosage Unknown Completed [facility] Meningococcal Vaccine Unknown Completed [facility] MMR Unknown Completed [facility] MMR Unknown Completed [facility] Pneumococcal 13 Conjugate, PCV13 (Prevnar 13) Unknown Completed [facility] Polio (IPV/OPV) Unknown Completed [facility] Polio (IPV/OPV) Unknown Completed [facility] Polio (IPV/OPV) Unknown Completed [facility] Polio (IPV/OPV) Unknown Completed [facility] TDAP Unknown Completed [facility] Varicella (varivax)(chicken pox) Unknown Completed [facility] Varicella (varivax)(chicken pox) Unknown Completed [facility] Meningococcal B, OMV Unknown Completed [facility] Influenza Virus Vaccine Quad .5 mL IM 6+ MO (FLUZONE/FLULAVAL/FL UARIX) Unknown Completed [facility] TDAP Unknown Completed [facility] DTaP, Unspecified Formulation Unknown Completed [facility] DTaP, Unspecified Formulation Unknown Completed [facility] DTaP, Unspecified Formulation Unknown Completed [facility] DTaP, Unspecified Formulation Unknown Completed [facility] HEPA,NOS Unknown Completed [facility] HEPATITIS A Unknown Completed [facility] HIB 4 Dose Schedule Unknown Completed [facility] HIB 4 Dose Schedule Unknown Completed [facility] Meningococcal Polysaccharide (groups A, C, Y and W-135) conjugate vaccine (MCV4P) Unknown Completed [facility] Pneumococcal 7 Conjugate, PCV7 (Prevnar7) Unknown Completed [facility] IPV Unknown Completed [facility] IPV Unknown Completed [facility] IPV Unknown Completed [facility] IPV Unknown Completed [facility] TDAP Unknown Completed [facility] Vital Signs Vital Name Observation Time Observation Value Comments S ource Systolic blood pressure 2023-02-08 22:19:00 135 mm[Hg] [facility] Diastolic blood pressure 2023-02-08 22:19:00 85 mm[Hg] [facility] Heart rate 2023-02-08 22:14:00 91 /min [facility] Body temperature 2023-02-08 22:14:00 36.39 Nabila [facility] Respiratory rate 2023-02-08 22:14:00 18 /min [facility] Body height 2023-02-08 22:14:00 167.6 cm [facility] Body weight 2023-02-08 22:14:00 78.382 kg [facility] BMI 2023-02-08 22:14:00 27.89 kg/m2 [facility] Systolic blood pressure 2022-08-12 15:38:00 123 mm[Hg] [facility] Diastolic blood pressure 2022-08-12 15:38:00 81 mm[Hg] [facility] Heart rate 2022-08-12 15:38:00 92 /min [facility] Body temperature 2022-08-12 15:38:00 35.83 Nabila [facility] Respiratory rate 2022-08-12 15:38:00 18 /min [facility] Body height 2022-08-12 15:38:00 167.6 cm [facility] Body weight 2022-08-12 15:38:00 80.377 kg [facility] BMI 2022-08-12 15:38:00 28.60 kg/m2 [facility] Systolic blood pressure 2022-08-01 15:20:00 134 mm[Hg] [facility] Diastolic blood pressure 2022-08-01 15:20:00 90 mm[Hg] [facility] Heart rate 2022-08-01 14:55:00 91 /min [facility] Body temperature 2022-08-01 14:55:00 36.5 Nabila [facility] Respiratory rate 2022-08-01 14:55:00 17 /min [facility] Body height 2022-08-01 14:55:00 167.6 cm [facility] Body weight 2022-08-01 14:55:00 81.874 kg [facility] BMI 2022-08-01 14:55:00 29.13 kg/m2 [facility] Systolic blood pressure 2022-07-29 16:00:00 131 mm[Hg] [facility] Diastolic blood pressure 2022-07-29 16:00:00 77 mm[Hg] [facility] Respiratory rate 2022-07-29 15:56:00 18 /min [facility] Heart rate 2022-07-29 12:15:00 112 /min [facility] Oxygen saturation in Arterial blood by Pulse oximetry 2022-07-29 12:15:00 96 /min [facility] Body temperature 2022-07-29 10:00:00 36.89 Nabila [facility] Body height 2022-07-29 03:10:00 167.6 cm [facility] Body weight 2022-07-29 03:10:00 83.643 kg [facility] BMI 2022-07-29 03:10:00 29.76 kg/m2 [facility] Systolic blood pressure 2022-07-25 13:45:00 140 mm[Hg] [facility] Diastolic blood pressure 2022-07-25 13:45:00 97 mm[Hg] [facility] Heart rate 2022-07-25 12:15:00 92 /min [facility] Body temperature 2022-07-25 12:15:00 36.67 Nabila [facility] Respiratory rate 2022-07-25 12:15:00 18 /min [facility] Oxygen saturation in Arterial blood by Pulse oximetry 2022-07-25 12:15:00 100 /min [facility] Body height 2022-07-24 14:30:00 167.6 cm [facility] Systolic blood pressure 2022-07-23 18:30:00 130 mm[Hg] [facility] Diastolic blood pressure 2022-07-23 18:30:00 84 mm[Hg] [facility] Heart rate 2022-07-23 18:30:00 115 /min [facility] Body temperature 2022-07-23 18:30:00 36.94 Nabila [facility] Respiratory rate 2022-07-23 18:30:00 18 /min [facility] Oxygen saturation in Arterial blood by Pulse oximetry 2022-07-23 18:30:00 99 /min [facility] Body height 2022-07-21 15:36:00 167.6 cm [facility] Body weight 2022-07-21 15:36:00 89.359 kg [facility] BMI 2022-07-21 15:36:00 31.80 kg/m2 [facility] Systolic blood pressure 2022-07-21 18:00:00 131 mm[Hg] [facility] Diastolic blood pressure 2022-07-21 18:00:00 84 mm[Hg] [facility] Heart rate 2022-07-21 18:00:00 104 /min [facility] Body temperature 2022-07-21 18:00:00 36.56 Nabila [facility] Respiratory rate 2022-07-21 18:00:00 18 /min [facility] Oxygen saturation in Arterial blood by Pulse oximetry 2022-07-21 18:00:00 100 /min [facility] Body height 2022-07-21 15:36:00 167.6 cm [facility] Body weight 2022-07-21 15:36:00 89.359 kg [facility] BMI 2022-07-21 15:36:00 31.80 kg/m2 [facility] Systolic blood pressure 2022-07-17 17:09:00 103 mm[Hg] [facility] Diastolic blood pressure 2022-07-17 17:09:00 51 mm[Hg] [facility] Heart rate 2022-07-17 17:09:00 82 /min [facility] Body temperature 2022-07-17 17:09:00 36.56 Nabila [facility] Respiratory rate 2022-07-17 17:09:00 16 /min [facility] Oxygen saturation in Arterial blood by Pulse oximetry 2022-07-17 17:09:00 99 /min [facility] Body height 2022-07-17 15:58:00 167.6 cm 5' 6" [facility] Body weight 2022-07-17 15:58:00 87.816 kg 193.6lb [facility] BMI 2022-07-17 15:58:00 31.25 kg/m2 [facility] Systolic blood pressure 2022-07-11 06:00:00 121 mm[Hg] [facility] Diastolic blood pressure 2022-07-11 06:00:00 68 mm[Hg] [facility] Heart rate 2022-07-11 06:00:00 100 /min [facility] Oxygen saturation in Arterial blood by Pulse oximetry 2022-07-11 06:00:00 99 /min [facility] Body temperature 2022-07-11 04:00:00 36.78 Nabila [facility] Respiratory rate 2022-07-11 04:00:00 18 /min [facility] Body height 2022-07-11 04:00:00 167.6 cm [facility] Body weight 2022-07-11 04:00:00 89.313 kg [facility] BMI 2022-07-11 04:00:00 31.78 kg/m2 [facility] Systolic blood pressure 2022-07-08 19:21:00 133 mm[Hg] [facility] Diastolic blood pressure 2022-07-08 19:21:00 79 mm[Hg] [facility] Heart rate 2022-07-08 19:21:00 94 /min [facility] Body temperature 2022-07-08 19:21:00 36.22 Nabila [facility] Respiratory rate 2022-07-08 19:21:00 18 /min [facility] Body height 2022-07-08 19:21:00 167.6 cm [facility] Body weight 2022-07-08 19:21:00 86.909 kg [facility] BMI 2022-07-08 19:21:00 30.93 kg/m2 [facility] Heart rate 2022-07-06 09:15:00 96 /min [facility] Oxygen saturation in Arterial blood by Pulse oximetry 2022-07-06 09:15:00 99 /min [facility] Systolic blood pressure 2022-07-06 05:20:00 121 mm[Hg] [facility] Diastolic blood pressure 2022-07-06 05:20:00 70 mm[Hg] [facility] Body temperature 2022-07-06 05:20:00 37.06 Nabila [facility] Body height 2022-07-06 05:20:00 167.6 cm [facility] Body weight 2022-07-06 05:20:00 86.637 kg [facility] BMI 2022-07-06 05:20:00 30.83 kg/m2 [facility] Respiratory rate 2022-07-06 05:01:00 16 /min [facility] Systolic blood pressure 2022-06-23 19:46:00 135 mm[Hg] [facility] Diastolic blood pressure 2022-06-23 19:46:00 85 mm[Hg] [facility] Heart rate 2022-06-23 19:46:00 102 /min [facility] Body temperature 2022-06-23 19:46:00 36.11 Nabila [facility] Respiratory rate 2022-06-23 19:46:00 18 /min [facility] Body height 2022-06-23 19:46:00 167.6 cm [facility] Body weight 2022-06-23 19:46:00 85.004 kg [facility] BMI 2022-06-23 19:46:00 30.25 kg/m2 [facility] Systolic blood pressure 2022-06-09 18:04:00 110 mm[Hg] [facility] Diastolic blood pressure 2022-06-09 18:04:00 60 mm[Hg] [facility] Heart rate 2022-06-09 17:59:00 112 /min [facility] Body temperature 2022-06-09 17:57:00 36.28 Nabila [facility] Respiratory rate 2022-06-09 17:57:00 18 /min [facility] Body height 2022-06-09 17:57:[address] weight 2022-06-09 17:57:00 85.911 kg [facility] BMI 2022-06-09 17:57:00 29.66 kg/m2 [facility] Body temperature 2022-06-02 15:34:00 36.72 Nabila [facility] Body weight 2022-06-02 15:34:00 85.73 kg [facility] BMI 2022-06-02 15:34:00 30.51 kg/m2 [facility] Systolic blood pressure 2022-05-26 15:34:00 111 mm[Hg] [facility] Diastolic blood pressure 2022-05-26 15:34:00 71 mm[Hg] [facility] Heart rate 2022-05-26 15:34:00 87 /min [facility] Body temperature 2022-05-26 15:34:00 36.33 Nabila [facility] Respiratory rate 2022-05-26 15:34:00 18 /min [facility] Body height 2022-05-26 15:34:00 167.6 cm [facility] Body weight 2022-05-26 15:34:00 85.73 kg [facility] BMI 2022-05-26 15:34:00 30.51 kg/m2 [facility] Body temperature 2022-05-19 15:46:00 36.17 Nabila [facility] Body weight 2022-05-19 15:46:00 85.095 kg [facility] BMI 2022-05-19 15:46:00 30.28 kg/m2 [facility] Systolic blood pressure 2022-05-12 20:15:00 122 mm[Hg] [facility] Diastolic blood pressure 2022-05-12 20:15:00 67 mm[Hg] [facility] Heart rate 2022-05-12 20:15:00 85 /min [facility] Body temperature 2022-05-12 20:15:00 35.83 Nabila [facility] Respiratory rate 2022-05-12 20:15:00 18 /min [facility] Body height 2022-05-12 20:15:00 167.6 cm [facility] Body weight 2022-05-12 20:15:00 83.961 kg [facility] BMI 2022-05-12 20:15:00 29.88 kg/m2 [facility] Body temperature 2022-05-05 16:37:00 36.56 Nabila [facility] Body weight 2022-05-05 16:37:00 83.553 kg [facility] Systolic blood pressure 2022-04-28 17:19:00 128 mm[Hg] [facility] Diastolic blood pressure 2022-04-28 17:19:00 73 mm[Hg] [facility] Heart rate 2022-04-28 17:19:00 87 /min [facility] Body temperature 2022-04-28 17:19:00 37.06 Nabila [facility] Respiratory rate 2022-04-28 17:19:00 18 /min [facility] Body weight 2022-04-28 17:19:00 82.736 kg [facility] Body temperature 2022-04-21 16:16:00 36.61 Nabila [facility] Body weight 2022-04-21 16:16:00 81.421 kg [facility] BMI 2022-04-21 16:16:00 28.97 kg/m2 [facility] Systolic blood pressure 2022-04-14 16:55:00 119 mm[Hg] [facility] Diastolic blood pressure 2022-04-14 16:55:00 72 mm[Hg] [facility] Heart rate 2022-04-14 16:55:00 75 /min [facility] Body temperature 2022-04-14 16:55:00 36.78 Nabila [facility] Respiratory rate 2022-04-14 16:55:00 16 /min [facility] Body height 2022-04-14 16:55:00 167.6 cm [facility] Body weight 2022-04-14 16:55:00 79.742 kg [facility] BMI 2022-04-14 16:55:00 28.37 kg/m2 [facility] Systolic blood pressure 2022-04-07 19:07:00 122 mm[Hg] [facility] Diastolic blood pressure 2022-04-07 19:07:00 76 mm[Hg] [facility] Heart rate 2022-04-07 19:07:00 95 /min [facility] Body temperature 2022-04-07 19:07:00 37.06 Nabila [facility] Respiratory rate 2022-04-07 19:07:00 20 /min [facility] Body weight 2022-04-07 19:07:00 78.835 kg [facility] Systolic blood pressure 2022-03-31 15:59:00 118 mm[Hg] [facility] Diastolic blood pressure 2022-03-31 15:59:00 76 mm[Hg] [facility] Heart rate 2022-03-31 15:59:00 82 /min [facility] Body temperature 2022-03-31 15:59:00 37.11 Nabila [facility] Respiratory rate 2022-03-31 15:59:00 18 /min [facility] Body height 2022-03-31 15:59:00 167.6 cm [facility] Body weight 2022-03-31 15:59:00 76.885 kg [facility] BMI 2022-03-31 15:59:00 27.36 kg/m2 [facility] Body temperature 2022-03-24 15:55:00 36.61 Nabila [facility] [facility] Res[facility] 2022-03-24 15:55:00 18 /min [facility] Body weight 2022-03-24 15:55:00 75.796 kg [facility] Systolic blood pressure 2022-03-10 17:15:00 116 mm[Hg] [facility] Diastolic blood pressure 2022-03-10 17:15:00 74 mm[Hg] [facility] Heart rate 2022-03-10 17:15:00 77 /min [facility] Body temperature 2022-03-10 17:15:00 36.94 Nabila [facility] Respiratory rate 2022-03-10 17:15:00 20 /min [facility] Body height 2022-03-10 17:15:00 167.6 cm [facility] Body weight 2022-03-10 17:15:00 72.938 kg [facility] BMI 2022-03-10 17:15:00 25.95 kg/m2 [facility] Systolic blood pressure 2022-02-24 16:18:00 109 mm[Hg] [facility] Diastolic blood pressure 2022-02-24 16:18:00 68 mm[Hg] [facility] Heart rate 2022-02-24 16:18:00 83 /min [facility] Body temperature 2022-02-24 16:18:00 36.44 Nabila [facility] Respiratory rate 2022-02-24 16:18:00 18 /min [facility] Body height 2022-02-24 16:18:00 167.6 cm [facility] Body weight 2022-02-24 16:18:00 69.673 kg [facility] BMI 2022-02-24 16:18:00 24.79 kg/m2 [facility] Systolic blood pressure 2022-02-10 19:32:00 135 mm[Hg] [facility] Diastolic blood pressure 2022-02-10 19:32:00 90 mm[Hg] [facility] Heart rate 2022-02-10 19:32:00 130 /min [facility] Body temperature 2022-02-10 19:32:00 36.89 Nabila [facility] Respiratory rate 2022-02-10 19:32:00 20 /min [facility] Body height 2022-02-10 19:32:00 167.6 cm [facility] Body weight 2022-02-10 19:32:00 71.215 kg [facility] BMI 2022-02-10 19:32:00 25.34 kg/m2 [facility] Systolic blood pressure 2022-01-27 15:32:00 127 mm[Hg] [facility] Diastolic blood pressure 2022-01-27 15:32:00 77 mm[Hg] [facility] Heart rate 2022-01-27 15:32:00 99 /min [facility] Body temperature 2022-01-27 15:32:00 36.22 Nabila [facility] Respiratory rate 2022-01-27 15:32:00 20 /min [facility] Body height 2022-01-27 15:32:00 167.6 cm [facility] Body weight 2022-01-27 15:32:00 70.988 kg [facility] BMI 2022-01-27 15:32:00 25.26 kg/m2 [facility] Systolic blood pressure 2021-12-23 14:24:00 118 mm[Hg] [facility] Diastolic blood pressure 2021-12-23 14:24:00 77 mm[Hg] [facility] Heart rate 2021-12-23 14:24:00 87 /min [facility] Body temperature 2021-12-23 14:24:00 37 Nabila [facility] Respiratory rate 2021-12-23 14:24:00 18 /min [facility] Body height 2021-12-23 14:24:00 167.6 cm [facility] Body weight 2021-12-23 14:24:00 70.761 kg [facility] BMI 2021-12-23 14:24:00 25.18 kg/m2 [facility] Systolic blood pressure 2021-12-09 14:24:00 118 mm[Hg] [facility] Diastolic blood pressure 2021-12-09 14:24:00 79 mm[Hg] [facility] Heart rate 2021-12-09 14:24:00 88 /min [facility] Body temperature 2021-12-09 14:24:00 36.67 Nabila [facility] Respiratory rate 2021-12-09 14:24:00 16 /min [facility] Body height 2021-12-09 14:24:00 167.6 cm [facility] Body weight 2021-12-09 14:24:00 72.53 kg [facility] BMI 2021-12-09 14:24:00 25.81 kg/m2 [facility] Oxygen saturation in Arterial blood by Pulse oximetry 2021-12-09 14:24:00 97 /min [facility] Systolic blood pressure 2021-10-12 18:17:00 124 mm[Hg] [facility] Diastolic blood pressure 2021-10-12 18:17:00 90 mm[Hg] [facility] Heart rate 2021-10-12 18:17:00 112 /min [facility] Body temperature 2021-10-12 18:17:00 37.11 Nabila [facility] Respiratory rate 2021-10-12 18:17:00 20 /min [facility] Body height 2021-10-12 18:17:00 167.6 cm [facility] Body weight 2021-10-12 18:17:00 68.04 kg [facility] BMI 2021-10-12 18:17:00 24.21 kg/m2 [facility] Procedures Procedure Date / Time Performed Performing Clinician Source GC & CHLAMYDIA AMPLIFIED ASSAY 2023-02-08 22:47:00 Tushar Lan [facility] TRICHOMONAS AMPLIFIED ASSAY 2023-02-08 22:47:00 Tushar Lan [facility] POCT TEST 2023-02-08 22:44:00 Omar Lan [facility] ASSIGNMENT OF BENEFITS 2023-02-08 22:03:35 Docto r Unassigned, Peculiar [facility] PROTEIN CREAT RATIO URINE RANDOM 2022-07-29 05:00:00 Velez-Carrillo, Kasey [facility] CBC WITH DIFF 2022-07-25 10:37:00 Tony Blanco [facility] COMP. METABOLIC PANEL (42614) 2022-07-25 03:06:00 Francis [facility] CBC WITH DIFF 2022-07-25 03:06:00 Tony Blanco [facility] PROTEIN CREAT RATIO URINE RANDOM 2022-07-25 03:06:00 Francis [facility] CBC WITH DIFF 2022-07-22 08:27:00 Adum, Hetal Min [facility] CBC WITH DIFF 2022-07-22 08:27:00 Adum, Hetal Min [facility] SECTION 2022-07-21 18:36:00 Adum, [facility]etal [facility] 2022-07-21 18:36:00 Adum, Hetal Villegas [facility] URINE DRUG (IMMUNOASSAY) - COMPREHENSIVE DRUG SCREEN W/O REFLEX 2022-07-21 18:12:00 Adum, Hetal Mario [facility] URINE DRUG (IMMUNOASSAY) - COMPREHENSIVE DRUG SCREEN W/O REFLEX 2022-07-21 18:12:00 Adum, Hetal Mario [facility] CBC WITH DIFF 2022-07-21 16:52:00 Adum, Hetal Min [facility] HEPATITIS B SURFACE ANTIGEN 2022-07-21 16:52:00 Adum, Hetal Mario [facility] HB ABO GROUPING 2022-07-21 16:52:00 Adum, Hetal [facility] [place] ONLY - RPR 2022-07-21 16:52:00 Adum, Hetal Mario [facility] HIV 1/2 AG-AB WITH REFLEX 2022-07-21 16:52:00 Adum, Hetal Mario [facility] CBC WITH DIFF 2022-07-21 16:52:00 Adum, Hetal Min [facility] HEPATITIS B SURFACE ANTIGEN 2022-07-21 16:52:00 Adum, Hetal Mario [facility] HB ABO GROUPING 2022-07-21 16:52:00 Adum, Hetal [facility] - RPR 2022-07-21 16:52:00 Adum, Hetal Mario [facility] HIV 1/2 AG-AB WITH REFLEX 2022-07-21 16:52:00 Adum, Hetal Mario [facility] RHO (D) IMMUNE GLOBULIN 2022-07-21 16:52:00 Kasey Aviles [facility] ONLY - FERN TEST 2022-07-21 16:06:00 Adum, Hetal Mario [facility] ONLY - FERN TEST 2022-07-21 16:06:00 Adum, Hetal Fabiano [facility] CONSENT/REFUSAL FOR DIAGNOSIS AND TREATMENT 2022-07-21 15:31:39 Doctor Unassigned, Peculiar [facility] CONSENT/REFUSAL FOR DIAGNOSIS AND TREATMENT 2022-07-21 15:31:39 Doctor Unassigned, Peculiar [facility] URINALYSIS 2022-07-17 16:35:00 Adum, Hetal Mario [facility] ONLY - FERN TEST 2022-07-17 16:35:00 Adum, Hetal Mario [facility] URINALYSIS 2022-07-11 06:30:[address] [facility] CLC OR LCC ONLY - WET PREP 2022-07-11 06:30:00 Austin Arzola [facility] NOTICE OF PRIVACY PRACTICES 2022-07-11 03:43:30 Doctor Unassigned, Peculiar [facility] CONSENT/REFUSAL FOR DIAGNOSIS AND TREATMENT 2022-07-11 03:43:01 Doctor Unassigned, Peculiar [facility] ASSIGNMENT OF BENEFITS 2022-07-11 03:42:40 Docto r Unassigned, Peculiar [facility] POCT URINALYSIS 2022-07-08 19:23:00 Antonette Luque [facility] L&D VISIT (NON-DELIVERED) 2022-07-06 05:01:00 Doctor Unassigned, Peculiar [facility] ASSIGNMENT OF BENEFITS 2022-07-06 04:55:57 Docto r Unassigned, Peculiar [facility] POCT URINALYSIS 2022-06-23 19:48:00 Antonette Luque [facility] POCT URINALYSIS 2022-06-09 18:04:00 Antonette Luque [facility] TDAP VACCINE, >11 YRS, IM 2022-05-26 15:59:59 Tushar Lan [facility] GLUCOSE 1 HOUR POST PRANDIAL 2022-05-12 21:16:00 Tushar Lan [facility] CBC WITH DIFF 2022-05-12 21:16:00 Tushar Lan [facility] POCT URINALYSIS 2022-05-12 20:18:00 Antonette Luque [facility] POCT URINALYSIS 2022-04-28 17:24:00 Antonette Luque [facility] SECOND AND THIRD TRIMESTER ULTRASOUND 2022-04-14 15:44:00 Antonette Luque [facility] POCT URINALYSIS 2022-03-31 16:02:00 Antonette Luque [facility] POCT URINALYSIS 2022-03-10 00:00:00 Antonette Luque [facility] POCT URINALYSIS 2022-02-24 16:30:00 Antonette Luque [facility] POCT URINALYSIS 2022-02-10 00:00:00 Antonette Luque [facility] POCT URINALYSIS 2022-01-27 15:33:00 Antonette Luque [facility] REPORT OF 2021-12-23 05:01:00 Doctor Mal scott, Peculiar [facility] POCT TEST 2021-12-23 00:00:00 Yuly Luque [facility] POCT URINALYSIS W/O SPECIFIC GRAVITY 2021-12-23 00:00:00 Antonette Luque [facility] FIRST TRIMESTER LESS THAN 14 WEEKS WITH TRANSVAGINAL 2021-12-14 21:24:20 Sara Snyder [facility] ASSIGNMENT OF BENEFITS 2021-12-14 19:54:43 Docto r Unassigned, Peculiar [facility] POCT TEST 2021-12-09 00:00:00 Holden Snyder [facility] POCT TEST 2021-10-12 18:22:00 Omar Lan [facility] Encounters Start Date/Time End Date/Time Encounter Type Admission Type Attending Clinicians Care Facility Care Department Encounter ID Source 2022-07-24 07:39:17 Outpatient P VELEZ-ADAMARIS S, KASEY VELEZ-ADAMARIS S, KASEY [facility] [id number] [facility] 2022-07-11 03:19:31 Outpatient X [facility] [id number] [facility] 2020-12-27 22:10:58 Emergency [facility] [id number] [facility] 2020-12-27 22:10:57 Emergency [facility] [id number] [facility] 2020-12-27 19:19:43 Outpatient P [facility] [id number] [facility] 2020-12-27 19:19:36 Outpatient P [facility] [id number] [facility] 2023-02-09 10:30:00 2023-02-09 10:45:00 Plumber Visit Lab, Ang-Rmchp Tushar Lan [facility] MATERNAL & CHILD [facility] 1.2.840.114 350.1.13.10 4.2.7.2.686 [id number] 107 [id number] [facility] 2023-02-09 10:30:00 2023-02-09 10:30:00 Outpatient R TUSHAR LAN [facility] [id number] [facility] 2023-02-08 16:00:00 2023-02-08 16:42:47 Outpatient R TUSHAR LAN [facility] [id number] [facility] 2023-02-08 16:00:00 2023-02-08 16:42:47 Office Visit Tushar Lan [facility] MATERNAL & CHILD [facility] 1.840.114 350.1.13.10 4.2.7.2.686 [id number] 107 [id number] [facility] 2023-02-08 00:00:00 2023-02-08 00:00:00 Orders Only Doctor Unassigned, Peculiar [facility] 1.84.114 350.1.13.10 4.2.7.2.686 [id number] [facility] 2022-12-08 14:45:00 2022-12-08 14:45:00 Outpatient R TUSHAR LAN [facility] [id number] [facility] 2022-09-07 15:15:00 2022-09-07 16:22:49 Outpatient R TUSHAR LAN [facility] [id number] [facility] 2022-08-29 00:00:00 2022-08-29 00:00:00 Telephone Tushar Lan [place] & CHILD [facility] 1.840.114 350.1.13.10 4.2.7.2.686 [id number] [facility] 2022-08-29 00:00:00 2022-08-29 00:00:00 Telephone Tushar Lan [facility] & CHILD [facility] 1.840.114 350.1.13.10 4.2.7.2.686 [id number] [facility] 2022-08-12 10:00:00 2022-08-12 11:16:38 Outpatient R TUSHAR LAN [facility] [id number] [facility] 2022-08-12 10:00:00 2022-08-12 11:16:38 Routine Visit Riky Tushar C [facility] & CHILD [facility] 1.2.840.114 350.1.13.10 4.2.7.2.686 [id number] 107 [id number] [facility] 2022-08-01 09:30:00 2022-08-01 10:21:06 Nurse Visit Visit, Ang-Rmchp Nurse ReidjohnathanAshlynTushar C [facility] & CHILD [facility] 1.2.840.114 350.1.13.10 4.2.7.2.686 [id number] [facility] 2022-08-01 09:30:00 2022-08-01 09:30:00 Outpatient R TUSHAR LAN [facility] [id number] [facility] 2022-08-01 00:00:00 2022-08-01 00:00:00 Patient Secure Msg Tushar Lan [facility] & CHILD [facility] 1.2.840.114 350.1.13.10 4.2.7.2.686 [id number] 107 [id number] [facility] 2022-08-01 00:00:00 2022-08-01 00:00:00 Patient Secure Msg Tushar Lan [facility] & CHILD [facility] 1.2.840.114 350.1.13.10 4.2.7.2.686 [id number] 107 [id number] [facility] 2022-07-28 20:06:00 2022-07-29 12:45:00 Outpatient HETAL FLETCHER [facility] [id number] [facility] 2022-07-28 20:06:00 2022-07-29 12:45:00 Hospital Encounter Kasey Young Vivian L [facility] 1.2.840.114 350.1.13.10 4.2.7.2.686 [id number] [facility] 2022-07-27 00:00:00 2022-07-27 00:00:00 Nurse Triage Patt Nova [facility] 1.2.840.114 350.1.13.10 4.2.7.2.686 [id number] [facility] 2022-07-26 00:00:00 2022-07-26 00:00:00 Telephone Tushar Lan [facility] MATERNAL & CHILD [facility] 1.2.840.114 350.1.13.10 4.2.7.2.686 [id number] 107 [id number] [facility] 2022-07-24 09:28:00 2022-07-25 12:30:00 Outpatient P VELEZ-ADAMARIS S, KASEY VELEZ-ADAMARIS S, KASEY [facility] [employer] [id number] [facility] 2022-07-24 09:28:00 2022-07-25 12:30:00 Hospital Encounter Kelin-Adamaris s, Kasey [facility] 1.2.840.114 350.1.13.10 4.2.7.2.686 [id number] [facility] 2022-07-21 10:37:00 2022-07-23 13:45:00 Inpatient X HETAL NORRIS [facility] [id number] [facility] 2022-07-21 10:37:00 2022-07-23 13:45:00 Hospital Encounter Luciana Norriseliseo Mario [facility] 1.2.840.114 350.1.13.10 4.2.7.2.686 [id number] [facility] 2022-07-21 12:35:00 2022-07-21 14:27:00 Surgery AdgideonHetal [facility] 1.2840.114 350.1.13.10 4.2.7.2.686 [id number] [facility] 2022-07-21 10:45:00 2022-07-21 10:45:00 Outpatient R TUSHAR LAN [facility] [id number] [facility] 2022-07-19 00:00:00 2022-07-19 00:00:00 Case Management AdHetal michele [facility] PROFESSIO [facility] 1.2840.114 350.1.13.10 4.2.7.2.686 [id number] [facility] 2022-07-17 10:38:00 2022-07-17 12:40:00 Outpatient X ADHETAL MICHELE [facility] [id number] [facility] 2022-07-17 10:38:00 2022-07-17 12:40:00 Emergency AdumHetal [facility] 1.2840.114 350.1.13.10 4.2.7.2.686 [id number] [facility] 2022-07-10 22:46:00 2022-07-11 03:10:00 Outpatient X AUSTIN ARZOLA [facility] [id number] [facility] 2022-07-10 22:46:00 2022-07-11 03:10:00 Emergency Austin Arzola Cam [facility] 1.2.840.114 350.1.13.10 4.2.7.2.686 [id number] [facility] 2022-07-11 00:00:00 2022-07-11 00:00:00 Telephone Tushar Lan [facility] MAT[facility]NAL & CHILD [facility] 1.2840.114 350.1.13.10 4.2.7.2.686 [id number] [facility] 2022-07-08 14:15:00 2022-07-08 14:41:47 Outpatient R TUSHAR LAN [facility] [id number] [facility] 2022-07-08 14:15:00 2022-07-08 14:41:47 Routine Visit Tushar Lan [facility] MAT[facility]NAL & CHILD [facility] 1.2.840.114 350.1.13.10 4.2.7.2.686 [id number] [facility] 2022-07-06 00:06:00 2022-07-06 04:42:00 Outpatient P HETAL NORRIS [facility] [id number] [facility] 2022-07-06 00:06:00 2022-07-06 04:42:00 Emergency AdHetal michele [facility] 1.2.840.114 350.1.13.10 4.2.7.2.686 [id number] [facility] 2022-07-06 00:00:00 2022-07-06 00:00:00 Orders Only Doctor Unassigned, Peculiar [facility] 1.2.840.114 350.1.13.10 4.2.7.2.686 [id number] [facility] 2022-07-05 00:00:00 2022-07-05 00:00:00 Orders Only Doctor Unassigned, Peculiar [facility] 1.2.840.114 350.1.13.10 4.2.7.2.686 [id number] [facility] 2022-06-23 14:45:00 2022-06-23 15:08:35 Outpatient R TUSHAR LAN [facility] [id number] [facility] 2022-06-23 14:45:00 2022-06-23 15:08:35 Routine Visit Tushar Lan [facility] MAT[facility]NAL & CHILD [facility] 1.2.840.114 350.1.13.10 4.2.7.2.686 [id number] [facility] 2022-06-16 13:00:00 2022-06-16 13:00:00 Outpatient R TUSHAR LAN [facility] [id number] [facility] 2022-06-09 12:45:00 2022-06-09 13:24:30 Outpatient R TUSHAR LAN [facility] [id number] [facility] 2022-06-09 12:45:00 2022-06-09 13:24:30 Routine Visit BrynTushar bryant [facility] & CHILD [facility] 1.2.840.114 350.1.13.10 4.2.7.2.686 [id number] [facility] 2022-06-02 10:30:00 2022-06-02 10:42:00 Nurse Visit Visit, Ang-Rmchp Nurse BrynTushar bryant [facility] & CHILD [facility] 1.2.840.114 350.1.13.10 4.2.7.2.686 [id number] [facility] 2022-06-02 10:30:00 2022-06-02 10:30:00 Outpatient R TUSHAR LAN [facility] [id number] [facility] 2022-05-26 10:30:00 2022-05-26 11:07:20 Outpatient R TUSHAR LAN [facility] [id number] [facility] 2022-05-26 10:30:00 2022-05-26 11:07:20 Routine Visit BrynTushar bryant [facility] & CHILD [facility] 1.2.840.114 350.1.13.10 4.2.7.2.686 [id number] [facility] 2022-05-19 10:30:00 2022-05-19 11:03:10 Nurse Visit Visit, WestRmchTushar Salazar [facility] & CHILD [facility] 1.2.840.114 350.1.13.10 4.2.7.2.686 [id number] [facility] 2022-05-19 10:30:00 2022-05-19 10:30:00 Outpatient R TUSHAR LAN [facility] [id number] [facility] 2022-05-12 14:45:00 2022-05-12 15:46:52 Outpatient R TUSHAR LAN [facility] [id number] [facility] 2022-05-12 14:45:00 2022-05-12 15:46:52 Routine Visit Tushar Lan [facility] & CHILD [facility] 1.2.840.114 350.1.13.10 4.2.7.2.686 [id number] [facility] 2022-05-05 10:30:00 2022-05-05 10:45:51 Nurse Visit Visit, WestRmchTushar Salazar [facility] & CHILD [facility] 1.2.840.114 350.1.13.10 4.2.7.2.686 [id number] [facility] 2022-05-05 10:30:00 2022-05-05 10:30:00 Outpatient R TUSHAR LAN [facility] [id number] [facility] 2022-04-28 11:00:00 2022-04-28 11:44:12 Outpatient R TUSHAR LAN [facility] [id number] [facility] 2022-04-28 11:00:00 2022-04-28 11:44:12 Routine Visit Tushar Lan [facility] MATERNAL & CHILD [facility] 1.2.840.114 350.1.13.10 4.2.7.2.686 [id number] [facility] 2022-04-21 10:00:00 2022-04-21 10:30:36 Nurse Visit Visit, Antonette Ojeda [facility] 1.2840.114 350.1.13.10 4.2.7.2.686 [id number] [facility] 2022-04-21 10:00:00 2022-04-21 10:00:00 Outpatient R ANTONETTE LUQUE [facility] [id number] [facility] 2022-04-14 09:15:00 2022-04-14 11:39:36 Routine Visit Risk, Neftali-N p/[facility] & [facility]ILD [facility] 1.840.114 350.1.13.10 4.2.7.2.686 [id number] [facility] 2022-04-14 10:30:00 2022-04-14 10:45:00 Nurse Visit Visit, Neftali Nurse Tushar Lan [facility] 1.2840.114 350.1.13.10 4.2.7.2.686 [id number] [facility] 2022-04-14 09:30:00 2022-04-14 10:39:28 Outpatient P SHEREEN SKY [facility] [id number] [facility] 2022-04-14 09:30:00 2022-04-14 10:39:28 Plumber Visit Ultrasound, Leonardo Syk [facility] 1.2.840.114 350.1.13.10 4.2.7.2.686 [id number] [facility] 2022-04-14 10:30:00 2022-04-14 10:30:00 Outpatient TUSHAR COHN [facility] [id number] [facility] 2022-04-14 00:00:00 2022-04-14 00:00:00 Case Management Antonette Luque [facility]ILD [facility] 1..840.114 350.1.13.10 4.2.7.2.686 [id number] 107 [id number] [facility] 2022-04-07 13:00:00 2022-04-07 13:13:39 Nurse Visit Visit, Neftali Nurse Tushar Lan [facility] .840.114 350.1.13.10 4.2.7.2.686 [id number] 107 [id number] [facility] 2022-04-07 13:00:00 2022-04-07 13:00:00 Outpatient TUSHAR CHON [facility] [id number] [facility] 2022-04-07 00:00:00 2022-04-07 00:00:00 Telephone Tushar Lan [facility] ..840.114 350.1.13.10 4.2.7.2.686 [id number] 107 [id number] [facility] 2022-03-31 09:45:00 2022-03-31 10:58:49 Outpatient EDWIN BARNARD [facility] [id number] [facility] 2022-03-31 09:45:00 2022-03-31 10:58:49 Routine Visit Risk, Satishp-N p/High Edwin Cage [facility] 1.2.840.114 350.1.13.10 4.2.7.2.686 [id number] 107 [id number] [facility] 2022-03-24 10:00:00 2022-03-24 10:00:00 Nurse Visit Visit, Neftali Nurse Tushar Lan [facility] 1.840.114 350.1.13.10 4.2.7.2.686 [id number] 107 [id number] [facility] 2022-03-24 10:00:00 2022-03-24 09:55:01 Outpatient R TUSHAR LAN [facility] [id number] [facility] 2022-03-15 00:00:00 2022-03-15 00:00:00 Telephone Tushar Lan [facility] .840.114 350.1.13.10 4.2.7.2.686 [id number] 107 [id number] [facility] 2022-03-10 11:00:00 2022-03-10 11:45:31 Outpatient R EDWIN CAGE [facility] [id number] [facility] 2022-03-10 11:00:00 2022-03-10 11:45:31 Routine Visit Risk, WestRmchp-N p/High Edwin Cage [facility] 1.840.114 350.1.13.10 4.2.7.2.686 [id number] 107 [id number] [facility] 2022-03-10 10:30:00 2022-03-10 10:30:00 Outpatient R [facility] [id number] [facility] 2022-03-07 00:00:00 2022-03-07 00:00:00 Telephone Tushar Lan [facility] 1.2.840.114 350.1.13.10 4.2.7.2.686 [id number] 107 [id number] [facility] 2022-03-07 00:00:00 2022-03-07 00:00:00 Case Management Edwin Cage [facility] 1..840.114 350.1.13.10 4.2.7.2.686 [id number] 107 [id number] [facility] 2022-02-24 10:00:00 2022-02-24 11:04:18 Outpatient EDWIN BARNARD [facility] [id number] [facility] 2022-02-24 10:00:00 2022-02-24 11:04:18 Routine Visit Risk, Ang-Rmchp-N p/High Edwin Cage [facility] 1.840.114 350.1.13.10 4.2.7.2.686 [id number] 107 [id number] [facility] 2022-02-10 13:15:00 2022-02-10 13:59:26 Outpatient R EDWIN CAGE [facility] [id number] [facility] 2022-02-10 13:15:00 2022-02-10 13:59:26 Routine Visit Risk, Ang-Rmchp-N p/High Edwin Cage [facility] 1..840.114 350.1.13.10 4.2.7.2.686 [id number] 107 [id number] [facility] 2022-01-27 09:00:00 2022-01-27 10:00:53 Outpatient EDWIN BARNARD [facility] [id number] [facility] 2022-01-27 09:00:00 2022-01-27 10:00:53 Routine Visit Risk, Ang-Rmchp-N p/High Edwin Cage [facility] CHILD [facility] 1.840.114 350.1.13.10 4.2.7.2.686 [id number] 107 [id number] [facility] 2022-01-10 00:00:00 2022-01-10 00:00:00 Case Management Antonette Luque [facility] 1.840.114 350.1.13.10 4.2.7.2.686 [id number] 107 [id number] [facility] 2022-01-06 15:15:00 2022-01-06 15:45:00 Plumber Visit Ultrasound, Leonardo Cooper David [facility] 1.0.114 350.1.13.10 4.2.7.2.686 [id number] [facility] 2022-01-06 15:15:00 2022-01-06 15:15:00 Outpatient DAVID OCHOA [facility] [id number] [facility] 2021-12-30 10:00:00 2021-12-30 10:00:00 Outpatient SARA TROY CHERYAL [facility] [id number] [facility] 2021-12-23 09:15:00 2021-12-23 10:41:00 Outpatient ANTONETTE KEENAN [facility] [id number] [facility] 2021-12-23 09:15:00 2021-12-23 10:41:00 Initial Visit Provider, Niki Mayfield Brenda A [facility] 1.84.114 350.1.13.10 4.2.7.2.686 [id number] 107 [id number] [facility] 2021-12-23 00:00:00 2021-12-23 00:00:00 Orders Only Doctor Unassigned, Peculiar [facility] 1.2.840.114 350.1.13.10 4.2.7.2.686 [id number] [facility] 2021-12-17 00:00:00 2021-12-17 00:00:00 Case Management Sara Snyder [facility] 1.2.840.114 350.1.13.10 4.2.7.2.686 [id number] [facility] 2021-12-14 14:55:04 2021-12-14 23:59:00 Outpatient R SARA SNYDER [facility] [id number] [facility] 2021-12-14 14:55:04 2021-12-14 23:59:00 Hospital Encounter Sara Snyder [facility] 1.2.840.114 350.1.13.10 4.2.7.2.686 [id number] [facility] 2021-12-14 00:00:00 2021-12-14 00:00:00 Orders Only Doctor Unassigned, Peculiar [facility] 1.2.840.114 350.1.13.10 4.2.7.2.686 [id number] [facility] 2021-12-09 09:00:00 2021-12-09 09:43:20 Outpatient R SARA SNYDER [facility] [id number] [facility] 2021-12-09 09:00:00 2021-12-09 09:43:20 Initial Visit Sara Snyder [facility] 1.2.840.114 350.1.13.10 4.2.7.2.686 [id number] [facility] 2021-10-12 13:00:00 2021-10-12 13:34:47 Office Visit Tushar Lan [facility] 1..840.114 350.1.13.10 4.2.7.2.686 [id number] 107 [id number] [facility] 2021-10-12 13:00:00 2021-10-12 13:34:47 Outpatient R TUSHAR LAN [facility] [id number] [facility] 2021-10-12 13:00:00 2021-10-12 13:00:00 Outpatient R TUSHAR LAN [facility] [id number] [facility] 2021-10-12 13:00:00 2021-10-12 13:00:00 Outpatient R TUSHAR LAN [facility] [id number] [facility] 2021-10-12 00:00:00 2021-10-12 00:00:00 Orders Only Doctor Unassigned, Peculiar [facility] 1..840.114 350.1.13.10 4.2.7.2.686 [id number] [facility] 2021-09-28 12:45:00 2021-09-28 14:31:13 Outpatient R TUSHAR LAN [facility] [id number] [facility] 2021-09-28 12:45:00 2021-09-28 14:31:13 Office Visit Tushar Lan [facility] 1..840.114 350.1.13.10 4.2.7.2.686 [id number] 107 [id number] [facility] 2021-08-05 16:15:00 2021-08-05 16:15:00 Outpatient JAM DESIR [facility] [id number] [facility] 2021-06-18 11:00:00 2021-06-18 11:00:00 Outpatient CLINTON CEDILLO [facility] [id number] [facility] 2021-06-15 00:00:00 2021-06-15 00:00:00 Orders Only Doctor Unassigned, Peculiar [facility] 1.2.840.114 350.1.13.10 4.2.7.2.686 [id number] [facility] 2021-06-15 00:00:00 2021-06-15 00:00:00 Patient Secure Msg Doctor Unassigned, Peculiar [facility] 1.2840.114 350.1.13.10 4.2.7.2.686 [id number] [facility] 2021-03-09 14:00:00 2021-03-09 14:00:00 Outpatient R TUSHAR LAN [facility] [id number] [facility] 2021-03-02 00:00:00 2021-03-02 00:00:00 Telephone Tushar Lan [facility] 1.840.114 350.1.13.10 4.2.7.2.686 [id number] 107 [id number] [facility] 2021-02-12 00:00:00 2021-02-12 00:00:00 Ernesto Hoffman [facility] 1.2840.114 350.1.13.10 4.2.7.2.686 [id number] 107 [id number] [facility] 2021-02-11 00:00:00 2021-02-11 00:00:00 Tushar Galaviz [facility] 1.2.840.114 350.1.13.10 4.2.7.2.686 [id number] 107 [id number] [facility] 2021-01-27 00:00:00 2021-01-27 00:00:00 Ernesto Hoffman [facility] 1.2.840.114 350.1.13.10 4.2.7.2.686 [id number] 107 [id number] [facility] 2021-01-18 16:00:00 2021-01-18 16:18:34 Outpatient R ERNESTO PEACOCK [facility] [id number] [facility] 2021-01-18 15:59:18 2021-01-18 16:18:34 Office Visit Ernesto Peacock [facility] 1..840.114 350.1.13.10 4.2.7.2.686 [id number] 107 [id number] [facility] 2021-01-18 16:00:00 2021-01-18 16:00:00 Outpatient ERNESTO STARKS [facility] [id number] [facility] 2021-01-15 13:15:00 2021-01-15 13:15:00 Outpatient ERNESTO STARKS [facility] [id number] [facility] 2020-12-11 00:00:00 2020-12-11 00:00:00 Telephone Tushar Lan [facility] 1..840.114 350.1.13.10 4.2.7.2.686 [id number] 107 [id number] [facility] 2020-10-20 13:30:06 2020-10-20 14:12:47 Office Visit Niki Ralph [facility] 1.2.840.114 350.1.13.10 4.2.7.2.686 [id number] 107 [id number] [facility] 2020-10-20 13:30:00 2020-10-20 13:30:00 Outpatient NIKI SHIN [facility] [id number] [facility] 2020-10-14 15:00:00 2020-10-14 15:00:00 Outpatient R TUSHAR LAN [facility] [id number] [facility] 2020-10-12 14:17:44 2020-10-12 15:03:31 Office Visit Tushar Lan [facility] 1.2.840.114 350.1.13.10 4.2.7.2.686 [id number] 107 [id number] [facility] 2020-10-12 14:30:00 2020-10-12 14:30:00 Outpatient R TUSHAR LAN [facility] [id number] [facility] 2020-09-28 08:30:00 2020-09-28 08:30:00 Outpatient R TUSHAR LAN [facility] [id number] [facility] 2020-09-28 00:00:00 2020-09-28 00:00:00 Telephone Ernesto Peacock [facility] 1.2.840.114 350.1.13.10 4.2.7.2.686 [id number] 107 [id number] [facility] 2020-09-25 00:00:00 2020-09-25 00:00:00 Telephone Tushar Lan [facility] 1.2.840.114 350.1.13.10 4.2.7.2.686 [id number] 107 [id number] [facility] 2020-09-24 14:14:05 2020-09-24 14:29:05 Office Visit Tushar Lna [facility] 1.2.840.114 350.1.13.10 4.2.7.2.686 [id number] 107 [id number] [facility] 2020-09-24 14:15:00 2020-09-24 14:15:00 Outpatient R TUSHAR LAN [facility] [id number] [facility] 2020-09-08 16:00:00 2020-09-08 16:00:00 Outpatient ERNESTO STARKS [facility] [id number] [facility] 2020-08-18 13:04:51 2020-08-18 13:45:53 Routine Visit Tushar Lan [facility] 1.2.840.114 350.1.13.10 4.2.7.2.686 [id number] 107 [id number] [facility] 2020-08-18 13:15:00 2020-08-18 13:15:00 Outpatient TUSHAR COHN [facility] [id number] [facility] 2020-08-06 11:00:00 2020-08-06 11:00:00 Outpatient ERNESTO STARKS [facility] [id number] [facility] 2020-08-06 08:21:04 2020-08-06 09:08:19 Nurse Visit Visit, Ang-Rmchp Nurse Tushar Lan [facility] 1..840.114 350.1.13.10 4.2.7.2.686 [id number] 107 [id number] [facility] 2020-08-06 09:00:00 2020-08-06 09:00:00 Outpatient TUSHAR COHN [facility] [id number] [facility] 2020-08-04 00:00:00 2020-08-04 00:00:00 Telephone Ernesto Peacock [facility] 1.2.840.114 350.1.13.10 4.2.7.2.686 [id number] 107 [id number] [facility] 2020-08-01 00:00:00 2020-08-01 00:00:00 Encounter 1.2.840.1 [id number] 3.104.2.7 [id number] 1.2.840.114 350.1.13.10 4.2.7.2.696 [id number] [facility] 2020-07-26 14:30:00 2020-07-28 17:45:00 Hospital Encounter Rosio Breen Maxim Austin Felix [facility] 1.2.840.114 350.1.13.10 4.2.7.2.686 [id number] [facility] 2020-07-27 10:49:00 2020-07-27 16:19:00 Anesthesia Event Dylan Prieto [facility] 1.2.840.114 350.1.13.10 4.2.7.2.686 [id number] [facility] 2020-07-26 19:50:09 2020-07-26 19:50:09 Anesthesia Event TariqAngelica pryor [facility] 1.2.840.114 350.1.13.10 4.2.7.2.686 [id number] [facility] 2020-07-21 12:46:13 2020-07-21 13:17:55 Routine Visit Ernesto Peacock [facility] 1.2.840.114 350.1.13.10 4.2.7.2.686 [id number] 107 [id number] [facility] 2020-07-21 12:45:00 2020-07-21 12:45:00 Outpatient ERNESTO STARKS [facility] [id number] [facility] 2020-07-12 02:00:00 2020-07-12 03:20:00 Hospital Encounter Hetal Norris [facility] 1.2.840.114 350.1.13.10 4.2.7.2.686 [id number] [facility] 2020-07-07 10:39:36 2020-07-07 11:15:55 Routine Visit Ernesto Peacock [facility] 1..114 350.1.13.10 4.2.7.2.686 [id number] 107 [id number] [facility] 2020-07-07 10:45:00 2020-07-07 10:45:00 Outpatient ERNESTO STARKS [facility] [id number] [facility] 2020-06-26 00:00:00 2020-06-26 00:00:00 Telephone Tushar Lan [facility] 1..114 350.1.13.10 4.2.7.2.686 [id number] 107 [id number] [facility] 2020-06-26 00:00:00 2020-06-26 00:00:00 Patient Secure Msg Ernesto Peacock [facility] 1..114 350.1.13.10 4.2.7.2.686 [id number] 107 [id number] [facility] 2020-06-23 14:10:30 2020-06-23 14:38:56 Routine Visit Ernesto Peacock [facility] 1..114 350.1.13.10 4.2.7.2.686 [id number] 107 [id number] [facility] 2020-06-23 14:15:00 2020-06-23 14:15:00 Outpatient ERNESTO STARKS [facility] [id number] [facility] 2020-06-11 00:00:00 2020-06-11 00:00:00 Orders Only Doctor Unassigned, Peculiar [facility] 1..114 350.1.13.10 4.2.7.2.686 [id number] [facility] 2020-06-09 14:16:51 2020-06-09 14:55:17 Routine Visit Niki Ralph Emily N [facility] 1..840.114 350.1.13.10 4.2.7.2.686 [id number] 107 [id number] [facility] 2020-06-09 14:15:00 2020-06-09 14:15:00 Outpatient R ERNESTO PEACOCK [facility] [id number] [facility] 2020-06-02 00:00:00 2020-06-02 00:00:00 Orders Only Doctor Unassigned, Peculiar [facility] 1..840.114 350.1.13.10 4.2.7.2.686 [id number] [facility] 2020-06-01 00:00:00 2020-06-01 00:00:00 Refill Tushar Lan [facility] 1..840.114 350.1.13.10 4.2.7.2.686 [id number] 107 [id number] [facility] 2020-05-21 12:58:26 2020-05-21 13:13:26 Plumber Visit Lab, Ang-Rmchp Tushar Lan [facility] 1.840.114 350.1.13.10 4.2.7.2.686 [id number] [facility] 2020-05-21 13:00:00 2020-05-21 13:00:00 Outpatient TUSHAR COHN [facility] [id number] [facility] 2020-05-19 12:45:26 2020-05-19 13:11:32 Routine Visit Ernesto Peacock [facility] 1.840.114 350.1.13.10 4.2.7.2.686 [id number] [facility] 2020-05-19 12:45:00 2020-05-19 12:45:00 Outpatient ERNESTO STARKS [facility] [id number] [facility] 2020-05-19 00:00:00 2020-05-19 00:00:00 Patient Outreach Jeffery Dumont [facility] 1..840.114 350.1.13.10 4.2.7.2.686 [id number] [facility] 2020-04-23 15:54:18 2020-04-23 16:11:16 Routine Visit Ernesto Peacock [facility] 1..840.114 350.1.13.10 4.2.7.2.686 [id number] 107 [id number] [facility] 2020-04-23 16:00:00 2020-04-23 16:00:00 Outpatient R ERNESTO PEACOCK [facility] [id number] [facility] 2020-04-14 12:45:00 2020-04-14 12:45:00 Outpatient ERNESTO STARKS [facility] [id number] [facility] 2020-04-09 13:55:54 2020-04-09 14:54:41 Plumber Visit Ultrasound, Radha Alvarado [facility] ..840.114 350.1.13.10 4.2.7.2.686 [id number] [facility] 2020-04-09 14:00:00 2020-04-09 14:00:00 Outpatient P [facility] [id number] [facility] 2020-04-07 00:00:00 2020-04-07 00:00:00 Telephone Ernesto Peacock [facility] & CHILD [facility] 1.2840.114 350.1.13.10 4.2.7.2.686 [id number] [facility] 2020-03-26 00:00:00 2020-03-26 00:00:00 Orders Only Doctor Unassigned, Pec[facility]iar [facility] 1.2840.114 350.1.13.10 4.2.7.2.686 [id number] [facility] 2020-03-17 12:49:30 2020-03-17 13:34:04 Routine Visit Ernesto Peacock [facility] & [facility]ILD [facility] 1.2840.114 350.1.13.10 4.2.7.2.686 [id number] [facility] 2020-03-17 13:00:00 2020-03-17 13:00:00 Outpatient R ERNESTO PEACOCK [facility] [id number] [facility] 2020-02-25 00:00:00 2020-02-25 00:00:00 Telephone Ernesto Peacock [facility] & [facility]ILD [facility] 1.840.114 350.1.13.10 4.2.7.2.686 [id number] [facility] 2020-02-18 14:45:00 2020-02-18 14:45:00 Outpatient R ERNESTO PEACOCK [facility] [id number] [facility] 2020-02-18 14:09:04 2020-02-18 14:39:35 Routine Visit Ernesto Peacock [facility] & [facility]ILD [facility] 1.2840.114 350.1.13.10 4.2.7.2.686 [id number] [facility] 2020-02-03 00:00:00 2020-02-03 00:00:00 Telephone Tushar Lan [facility] & [facility] 1.2.84.114 350.1.13.10 4.2.7.2.686 [id number] [facility] 2020-02-03 00:00:00 2020-02-03 00:00:00 Refill Doctor Unassigned, Peculiar [facility] 1.84.114 350.1.13.10 4.2.7.2.686 [id number] [facility] 2020-01-21 15:20:02 2020-01-21 16:02:58 Routine Visit Ernesto Peacock [facility] 1.84.114 350.1.13.10 4.2.7.2.686 [id number] [facility] 2020-01-21 15:30:00 2020-01-21 15:30:00 Outpatient R ERNESTO PEACOCK [facility] [id number] [facility] 2020-01-18 00:00:00 2020-01-18 00:00:00 Refill Doctor Unassigned, Peculiar [facility] 1..114 350.1.13.10 4.2.7.2.686 [id number] [facility] 2020-01-09 14:52:31 2020-01-09 15:17:04 Plumber Visit Ultrasound, Shereen Sheridan [facility] & CHILD [facility] 1.84.114 350.1.13.10 4.2.7.2.686 [id number] [facility] 2020-01-09 14:45:00 2020-01-09 14:45:00 Outpatient P [facility] [id number] [facility] 2020-01-09 00:00:00 2020-01-09 00:00:00 Abstract Ernesto Peacock [facility] & [facility]ILD [facility] 1.2840.114 350.1.13.10 4.2.7.2.686 [id number] [facility] 2019-12-27 00:00:00 2019-12-27 00:00:00 Telephone Tushar Lan [facility] & [facility]ILD [facility] 1.2840.114 350.1.13.10 4.2.7.2.686 [id number] 107 [id number] [facility] 2019-12-26 13:39:00 2019-12-26 15:06:17 Initial Visit Ernesto Peacock [facility] 1.0.114 350.1.13.10 4.2.7.2.686 [id number] 107 [id number] [facility] 2019-12-26 13:45:00 2019-12-26 13:45:00 Outpatient R ERNESTO PEACOCK [facility] [id number] [facility] 2019-12-26 00:00:00 2019-12-26 00:00:00 Orders Only Doctor Unassigned, [facility] 1..114 350.1.13.10 4.2.7.2.686 [id number] [id number] [facility] 2019-12-09 13:15:00 2019-12-09 13:15:00 Outpatient R TUSHAR LAN [facility] [id number] [facility] 2019-10-28 00:00:00 2019-10-28 00:00:00 Telephone Tushar Lan [facility] & CHILD [facility] 1.20.114 350.1.13.10 4.2.7.2.686 [id number] 107 [id number] 2019-10-28 00:00:00 2019-10-28 00:00:00 Telephone Tushar Lan [facility] & CHILD [facility] 1.2840.114 350.1.13.10 4.2.7.2.686 [id number] 107 [id number] [facility] 2019-10-09 08:16:20 2019-10-09 08:48:41 Office Visit Tushar Lan [facility] & [facility]ILD [facility] 1.2.840.114 350.1.13.10 4.2.7.2.686 [id number] 107 [id number] [facility] 2019-10-09 08:16:20 2019-10-09 08:48:41 Office Visit ReidjohnathanTushar [facility] & CHILD [facility] 1.2840.114 350.1.13.10 4.2.7.2.686 [id number] 107 [id number] 2019-10-09 08:15:00 2019-10-09 08:15:00 Outpatient R TUSHAR LAN [facility] [id number] [facility] 2019-10-07 10:30:00 2019-10-07 10:30:00 Outpatient R REIDJOHNATHANTUSHAR [facility] [id number] [facility] 2019-09-27 00:00:00 2019-09-27 00:00:00 Telephone Tushar Lan [facility] & CHILD [facility] 1.2840.114 350.1.13.10 4.2.7.2.686 [id number] 107 [id number] [facility] 2019-09-25 00:00:00 2019-09-25 00:00:00 Refill ReidjohnathanTushar [facility] & CHILD [facility] 1.2.840.114 350.1.13.10 4.2.7.2.686 [id number] 107 [id number] [facility] 2019-08-19 00:00:00 2019-08-19 00:00:00 Telephone Riky Tushar Ashely [facility] & CHILD [facility] 1.2.840.114 350.1.13.10 4.2.7.2.686 [id number] 107 [id number] [facility] 2019-08-16 00:00:00 2019-08-16 00:00:00 Case Management Selam Alves [facility] & [facility] 1.840.114 350.1.13.10 4.2.7.2.686 [id number] 111 [id number] [facility] 2019-08-15 10:43:37 2019-08-15 11:14:30 Office Visit Provider, Tk-Selam Ac [facility] 1..114 350.1.13.10 4.2.7.2.686 [id number] 107 [id number] [facility] 2019-08-15 10:45:00 2019-08-15 10:45:00 Outpatient R SELAM ALVES [facility] [id number] [facility] 2019-07-23 00:00:00 2019-07-23 00:00:00 Telephone Tushar Lan [facility] CHILD [facility] 1..114 350.1.13.10 4.2.7.2.686 [id number] 107 [id number] [facility] 2019-07-19 00:00:00 2019-07-19 00:00:00 Orders Only Doctor Unassigned, [facility] 1.0.114 350.1.13.10 4.2.7.2.686 [id number] [facility] 2019-07-08 07:39:54 2019-07-08 09:35:12 Telemedici ne Visit Tushar Lan [facility] & CHILD [facility] 1.840.114 350.1.13.10 4.2.7.2.686 [id number] 107 [id number] [facility] 2019-07-08 09:30:00 2019-07-08 09:30:00 Outpatient R TUSHAR LAN [facility] [id number] [facility] 2019-07-05 00:00:00 2019-07-05 00:00:00 Telephone Tushar Lan [facility] 1.2.840.114 350.1.13.10 4.2.7.2.686 [id number] 107 [id number] [facility] 2019-04-29 00:00:00 2019-04-29 00:00:00 Telephone Tushar Lan [facility] 1.2.840.114 350.1.13.10 4.2.7.2.686 [id number] 107 [id number] [facility] 2019-04-01 00:00:00 2019-04-01 00:00:00 Telephone Tushar Lan [facility] 1.2.840.114 350.1.13.10 4.2.7.2.686 [id number] 107 [id number] [facility] 2019 10:39:31 2019 11:16:49 Office Visit Tushar Lan [facility] 1.2.840.114 350.1.13.10 4.2.7.2.686 [id number] 107 [id number] [facility] 2019 00:00:00 2019 00:00:00 Orders Only Doctor Unassigned, [facility] 1.2.840.114 350.1.13.10 4.2.7.2.686 [id number] [facility] 2018-12-20 09:37:41 2018-12-20 10:39:11 Office Visit Tushar Lan 1.2.840.1 54304.1.1 3.104.2.7 .[id number] [facility] 2018-12-20 00:00:00 2018-12-20 00:00:00 Telephone Tushar Lan 1.2840.1 03830.1.1 3.104.2.7 .[id number] [facility] 2018-12-20 00:00:00 2018-12-20 00:00:00 Orders Only Doctor Unassigned, Peculiar 1.840.1 44517.1.1 3.104.2.7 .[id number] [facility] Results Test Description Test Time Test Comments Results Result Co mments Source [facility] [id number] 22:45:00* Test Item Value Reference Range Interpretation Comme nts POCT PREG (test code = 1605) Negative On board controls acceptable with C Line (test code = 3574) Yes POCT PREG LOT # (test code = 3575) POCT PREG TEST DATE ( test code = 3576) [facility] [id number] 11:42:42* Test Item Value Reference Range Interpretation [...] g/dL 31.6-35.1 L RDW-SD (test code = 76693-6) 38.7 fL 39.0-49.9 L RDW-CV (test code = 788-0) 15.1 % 12.0-15.5 PLT (test code = 777-3) 338 See_Comment [Automated Cardiostronga ge] The system which generated this result transmitted reference range: 166 - 358 10*3/?L. The reference range was not used to interpret this result as normal/abnormal. MPV (test code = 97314-4) 10.1 fL 9.5-12.9 NRBC/100 WBC (test code = 2946270251) 0.0 See_Comment [Automated [employer] ssage] The system which generated this result transmitted reference range: 0.0 - 10.0 /100 WBCs. The reference range was not used to interpret this result as normal/abnormal. NRBC x10^3 (test code = 5965622288) See_Comment [Automated Cardiostronga ge] The system which generated this result transmitted reference range: 10*3/?L. The reference range was not used to interpret this result as normal/abnormal. GRAN MAT (NEUT) % (test code = 770-8) 72.3 % IMM GRAN % (test code = 7381344419) 0.90 % LYMPH % (test code = 736-9) 18.3 % MONO % (test code = 5905-5) 5.8 % EOS % (test code = 713-8) 2.5 % BASO % (test code = 706-2) 0.2 % GRAN MAT x10^3(ANC) (test code = 9461310177) 7.24 10*3/uL 1.88-7.09 H IMM GRAN x10^3 (test code = 8666673343) 0.09 10*3/uL 0.00-0.06 H LYMPH x10^3 (test code = 731-0) 1.83 10*3/uL 1.32-3.29 MONO x10^3 (test code = 742-7) 0.58 10*3/uL 0.33-0.92 EOS x10^3 (test code = 711-2) 0.25 10*3/uL 0.03-0.39 BASO x10^3 (test code = 704-7) 0.01-0.07 Lab Interpretation (test code = 85302-7) Abnormal [facility] (85028)2022-07-25 03:39:13* Test Item Value Reference Range Interpretation Comme nts NA (test code = 5709652179) 138 mmol/L 135-145 K (test code = 4808188135) 3.1 mmol/L 3.5-5.0 L CL (test code = 8910143307) 109 mmol/L 98-108 H CO2 TOTAL (test code = 8629448857) 21 mmol/L 23-31 L AGAP (test code = 9400434163) 8 2-16 BUN (test code = 4279318201) 12 mg/dL 7-23 GLUCOSE (test code = 2322001556) 100 mg/dL 70-110 CREATININE (test code = 8545669126) 0.44 mg/dL 0.50-1.04 L TOTAL BILI (test code = 7234147737) 1.1 mg/dL 0.1-1.1 CALCIUM (test code = 4664798951) 8.1 mg/dL 8.6-10.6 L T PROTEIN (test code = 3584207188) 6.1 g/dL 6.3-8.2 L ALBUMIN (test code = 7319969324) 2.9 g/dL 3.5-5.0 L ALK PHOS (test code = 7125649697) 101 U/L 34-122 ALTv (test code = 1742-6) 11 U/L 5-35 AST(SGOT) (test code = 0043731475) 19 U/L 13-40 eGFR (test code = 4549410924) 182.3 mL/min/1.73m2 ARGENIS (test code = ARGENIS) [...] imaging tests). Lab Interpretation (test code = 32778-2) Abnormal [facility] WITH [id number] 03:29:32* Test Item Value Reference Range Interpretation Comme nts WBC (test code = 6690-2) 9.87 See_Comment [Automated [employer]] The system which generated this result transmitted reference range: 4.30 - 11.10 10*3/?L. The reference range was not used to interpret this result as normal/abnormal. RBC (test code = 789-8) 3.57 See_Comment L [Automated [employer]] The system which generated this result transmitted [...] 31.8 g/dL 31.6-35.1 RDW-SD (test code = 13107-5) 38.3 fL 39.0-49.9 L RDW-CV (test code = 788-0) 15.1 % 12.0-15.5 PLT (test code = 777-3) 279 See_Comment [Automated Cardiostronga ge] The system which generated this result transmitted reference range: 166 - 358 10*3/?L. The reference range was not used to interpret this result as normal/abnormal. MPV (test code = 17287-3) 10.3 fL 9.5-12.9 NRBC/100 WBC (test code = 3814299185) 0.0 See_Comment [Automated [employer] ssage] The system which generated this result transmitted reference range: 0.0 - 10.0 /100 WBCs. The reference range was not used to interpret this result as normal/abnormal. NRBC x10^3 (test code = 6042003144) See_Comment [Automated Cardiostronga ge] The system which generated this result transmitted reference range: 10*3/?L. The reference range was not used to interpret this result as normal/abnormal. GRAN MAT (NEUT) % (test code = 770-8) 80.7 % IMM GRAN % (test code = 0344993627) 0.70 % LYMPH % (test code = 736-9) 11.3 % MONO % (test code = 5905-5) 4.9 % EOS % (test code = 713-8) 2.2 % BASO % (test code = 706-2) 0.2 % GRAN MAT x10^3(ANC) (test code = 1409181030) 7.96 10*3/uL 1.88-7.09 H IMM GRAN x10^3 (test code = 1659787866) 0.07 10*3/uL 0.00-0.06 H LYMPH x10^3 (test code = 731-0) 1.12 10*3/uL 1.32-3.29 L MONO x10^3 (test code = 742-7) 0.48 10*3/uL 0.33-0.92 EOS x10^3 (test code = 711-2) 0.22 10*3/uL 0.03-0.39 BASO x10^3 (test code = 704-7) 0.01-0.07 Lab Interpretation (test code = 78447-8) Abnormal [facility] IMMUNE [id number] 00:24:07* Test Item Value Reference Range Interpretation Comme nts RHIG CANDIDATE? (test code = 5188) No- see comment Patient is not a candidate for RhIg- Patient is Rh Positive.Performed at [facility] Laboratory Services - [facility] Blood [address] [place] [address]Geke Free: [phone] No. [id number] [facility] with Tpbamzrnowid4194-61-32 11:22:51* Test Item Value Reference Range Interpretation [...] g/dL 31.6-35.1 L RDW-SD (test code = 77849-7) 37.8 fL 39.0-49.9 L RDW-CV (test code = 788-0) 14.6 % 12.0-15.5 PLT (test code = 777-3) 216 See_Comment [Automated message] The system which generated this result transmitted reference range: 166 - 358 10*3/?L. The reference range was not used to interpret this result as normal/abnormal. MPV (test code = 13446-9) 10.8 fL 9.5-12.9 NRBC/100 WBC (test code = 2093081161) 0.0 See_Comment [Automated message] The system which generated this result transmitted reference range: 0.0 - 10.0 /100 WBCs. The reference range was not used to interpret this result as normal/abnormal. NRBC x10^3 (test code = 1409589446) See_Comment [Automated message] The system which generated this result transmitted reference range: 10*3/?L. The reference range was not used to interpret this result as normal/abnormal. SEG % (test code = 46618-5) 83 % 33-76 H BAND % (test code = 23080-3) 9 % 0-1 H LYMPH % (test code = 24265-6) 8 % 14-54 L ANC (test code = 753-4) 20.01 10*3/uL 1.88-7.09 H Lab Interpretation (test code = 76922-9) Abnormal [facility] with Uvdfwqbukqok5263-27-47 11:22:51* Test Item Value Reference Range Interpretation [...] g/dL 31.6-35.1 L RDW-SD (test code = 85153-7) 37.8 fL 39.0-49.9 L RDW-CV (test code = 788-0) 14.6 % 12.0-15.5 PLT (test code = 777-3) 216 See_Comment [Automated message] The system which generated this result transmitted reference range: 166 - 358 10*3/?L. The reference range was not used to interpret this result as normal/abnormal. MPV (test code = 53506-1) 10.8 fL 9.5-12.9 NRBC/100 WBC (test code = 1176434432) 0.0 See_Comment [Automated message] The system which generated this result transmitted reference range: 0.0 - 10.0 /100 WBCs. The reference range was not used to interpret this result as normal/abnormal. NRBC x10^3 (test code = 2178822412) See_Comment [Automated message] The system which generated this result transmitted reference range: 10*3/?L. The reference range was not used to interpret this result as normal/abnormal. SEG % (test code = 05398-2) 83 % 33-76 H BAND % (test code = 20470-7) 9 % 0-1 H LYMPH % (test code = 43120-8) 8 % 14-54 L ANC (test code = 753-4) 20.01 10*3/uL 1.88-7.09 H Lab Interpretation (test code = 14705-3) Abnormal [facility] URINALYSIS W SPECIFIC [id number] 19:23:00* Test Item Value Reference Range Interpretation [...] U APPEAR (test code = 3267) . [facility] URINALYSIS W SPECIFIC [id number] 19:48:00* Test Item Value Reference Range Interpretation [...] U APPEAR (test code = 3267) . [facility] URINALYSIS W SPECIFIC [id number] 18:04:00* Test Item Value Reference Range Interpretation [...] . [facility] with Dnazbuwlvtmm4732-16-90 04:55:42* Test Item Value Reference Range Interpretation [...] 32.4 g/dL 31.6-35.1 RDW-SD (test code = 29067-3) 39.8 fL 39.0-49.9 RDW-CV (test code = 788-0) 13.8 % 12.0-15.5 PLT (test code = 777-3) 287 See_Comment [Automated messa ge] The system which generated this result transmitted reference range: 166 - 358 10*3/?L. The reference range was not used to interpret this result as normal/abnormal. MPV (test code = 76260-5) 11.0 fL 9.5-12.9 NRBC/100 WBC (test code = 1807023207) 0.0 See_Comment [Automated [employer] ssage] The system which generated this result transmitted reference range: 0.0 - 10.0 /100 WBCs. The reference range was not used to interpret this result as normal/abnormal. NRBC x10^3 (test code = 9392220144) See_Comment [Automated messa ge] The system which generated this result transmitted reference range: 10*3/?L. The reference range was not used to interpret this result as normal/abnormal. GRAN MAT (NEUT) % (test code = 770-8) 68.4 % IMM GRAN % (test code = 2540091632) 1.10 % LYMPH % (test code = 736-9) 19.6 % MONO % (test code = 5905-5) 6.5 % EOS % (test code = 713-8) 3.8 % BASO % (test code = 706-2) 0.6 % GRAN MAT x10^3(ANC) (test code = 4851569501) 8.56 10*3/uL 1.88-7.09 H IMM GRAN x10^3 (test code = 4924854633) 0.14 10*3/uL 0.00-0.06 H LYMPH x10^3 (test code = 731-0) 2.46 10*3/uL 1.32-3.29 MONO x10^3 (test code = 742-7) 0.82 10*3/uL 0.33-0.92 EOS x10^3 (test code = 711-2) 0.47 10*3/uL 0.03-0.39 H BASO x10^3 (test code = 704-7) 0.07 10*3/uL 0.01-0.07 Lab Interpretation (test code = 28633-9) Abnormal [facility] 1 Hour Post Iomsgbdz1717-59-37 04:31:20* Test Item Value Reference Range Interpretation Comme nts GLUC 1 HR (test code = 1410309595) 72 mg/dL 120-170 L Lab Interpretation (test cod e = 09568-9) Abnormal [facility] W SPECIFIC [id number] 20:18:00* Test Item Value Reference Range Interpretation [...] U APPEAR (test code = 3267) . [facility] URINALYSIS W SPECIFIC [id number] 20:18:00* Test Item Value Reference Range Interpretation [...] U APPEAR (test code = 3267) . [facility] URINALYSIS W SPECIFIC [id number] 17:24:00* Test Item Value Reference Range Interpretation [...] U APPEAR (test code = 3267) . [facility] URINALYSIS W SPECIFIC [id number] 16:03:00* Test Item Value Reference Range Interpretation [...] U APPEAR (test code = 3267) . [facility] URINALYSIS W SPECIFIC [id number] 17:19:00* Test Item Value Reference Range Interpretation [...] U APPEAR (test code = 3267) . [facility] URINALYSIS W SPECIFIC [id number] 17:19:00* Test Item Value Reference Range Interpretation [...] U APPEAR (test code = 3267) . [facility] URINALYSIS W SPECIFIC [id number] 16:39:00* Test Item Value Reference Range Interpretation [...] POCT U APPEAR (test code = 3267) [facility] URINALYSIS W SPECIFIC [id number] 19:37:00* Test Item Value Reference Range Interpretation [...] U APPEAR (test code = 3267) . [facility] URINALYSIS W SPECIFIC [id number] 15:33:00* Test Item Value Reference Range Interpretation [...] U APPEAR (test code = 3267) . [facility] [id number] 14:34:00* Test Item Value Reference Range Interpretation Comme nts POCT PREG (test code = 1605) Positive On board controls acceptable with C Line (test code = 3574) Yes POCT PREG LOT # (test code = 3575) POCT PREG TEST DATE ( test code = 357) [facility] URINALYSIS W/O SPECIFIC [id number] 14:34:00* Test Item Value Reference Range Interpretation [...] = 3257) negative Negative - Negati ve [facility] [id number] 14:34:00* Test Item Value Reference Range Interpretation Comme nts POCT PREG (test code = 1605) Positive On board controls acceptable with C Line (test code = 3574) Yes POCT PREG LOT # (test code = 3575) POCT PREG TEST DATE ( test code = 3576) [facility] URINALYSIS W/O SPECIFIC [id number] 14:34:00* Test Item Value Reference Range Interpretation [...] = 3257) negative Negative - Negati ve [facility] [id number] 14:31:00* Test Item Value Reference Range Interpretation Comme nts POCT PREG (test code = 1605) Positive On board controls acceptable with C Line (test code = 3574) Yes POCT PREG LOT # (test code = 3575) POCT PREG TEST DATE ( test code = 3576) [facility] [id number] 18:26:00* Test Item Value Reference Range Interpretation Comme nts POCT PREG (test code = 1605) Negative On board controls acceptable with C Line (test code = 3574) Yes POCT PREG LOT # (test code = 3575) POCT PREG TEST DATE (test code = 3576) ARGENIS (test code = ARGENIS) accurate developme nt and interpretation of all internal controls [facility]
[2023-05-08 06:25] LABS: Specific Gravity 1.026 (1.005-1.030)
--- NOTE | 2023-05-08 06:27 | EDPHYS ---
Physician Documentation [facility] Name: Sil Gaytan Age: 23 yrs Sex: Female : 2000 Arrival Date: 05/08/2023 Time: 05:55 Bed 6 Private MD: ED Physician Elvis Garza HPI: 05/07 06:06 This 23 yrs old Female presents to ER via Unassigned with complaints of Nausea/Vomiting.ms3 06:06 23-year-old female past medical history of hypertension presents to the emergency ms3 department for nausea and vomiting. Patient states she had vomiting yesterday and nausea this morning. Patient states her nausea and vomiting is episodic lasting approximately 1 hour each time it occurs. Patient denies any alleviating or inciting factors. Patient states there is a possibility she could be . Patient denies nausea, vomiting, abdominal pain at this time. 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 Flu vaccine is not up to date. - Social history:: Smoking status: Patient denies any tobacco usage or history of. ROS: 06:06 Constitutional: Negative for fever, and chills. Neck: Negative for injury, pain, and ms3 swelling, Cardiovascular: Negative for chest pain, and palpitations. Respiratory: Negative for shortness of breath, cough, wheezing, and pleuritic chest pain, 06:06 MS/Extremity: Negative for injury and deformity, Skin: Negative for injury, rash, and discoloration, 06:06 Abdomen/GI: Positive for nausea and vomiting, Exam: 06:06 Constitutional: This is a well developed, well nourished patient who is awake, alert, ms3 and in no acute distress. Head/Face: Normocephalic, atraumatic. Neck: Trachea midline, no cervical lymphadenopathy. Supple, full range of motion without nuchal rigidity, or vertebral point tenderness. No Meningismus. Chest/axilla: Normal chest wall appearance and motion. Nontender with no deformity. Cardiovascular: Regular rate and rhythm with a normal S1 and S2. No gallops, murmurs, or rubs. Normal PMI, no JVD. No pulse deficits. Respiratory: Lungs have equal breath sounds bilaterally, clear to auscultation and percussion. No rales, rhonchi or wheezes noted. No increased work of breathing, no retractions or nasal flaring. Abdomen/GI: Soft, non-tender, with normal bowel sounds. No distension or tympany. No guarding or rebound. No evidence of tenderness throughout. Back: No spinal tenderness. No costovertebral tenderness. Full range of motion. Skin: Warm, dry with normal turgor. Normal color with no rashes, no lesions, and no evidence of cellulitis. MS/ Extremity: Pulses equal, no cyanosis. Neurovascular intact. Full, normal range of motion. Vital Signs: 06:07 BP 141 / 97; Pulse 87; Resp 14; Temp 97.2; Pulse Ox 100% ; Weight 81.65 kg; Height 5 vc1 ft. 7 in. ; Pain 0/10; 06:30 BP 128 / 84; Pulse 86; Resp 16; Pulse Ox 100% on R/A; km8 06:07 Body Mass Index 28.19 (81.65 kg, 170.18 cm) vc1 06:07 Pain Scale: Adult vc1 Aurora Coma Score: 06:15 Eye Response: spontaneous(4). Motor Response: obeys commands(6). Verbal Response: km8 oriented(5). Total: 15. MDM: 06:14 Patient medically screened. ms3 06:28 Differential diagnosis: Nonspecific abd pain, gastritis, viral gastroenteritis. Data ms3 reviewed: vital signs, nurses notes, lab test result(s), and as a result, I will discharge patient. I considered the following discharge prescriptions or medication management in the emergency department Medications were administered in the Emergency Department. See MAR. Care significantly affected by the following chronic conditions: Hypertension. Counseling: I had a detailed discussion with the patient and/or guardian regarding the historical points, exam findings, and any diagnostic results supporting the discharge/admit diagnosis, lab results, the need for outpatient follow up, to return to the emergency department if symptoms worsen or persist or if there are any questions or concerns that arise at home. Special discussion: Based on the patient's Hx, exam, and Dx evaluation, there is no indication for emergent surgery or inpatient Tx. It is understood by the patient/guardian that if the Sx's persist or worsen they need to return immediately for re-evaluation. ED course: Discussed negative test with patient. On reevaluation patient tolerating p.o., patient is alert and oriented x 4, no apparent distress, nontoxic-appearing, ambulatory in emergency room, speaking full sentences. Abdominal exam does not reveal tenderness, guarding, rebound tenderness. Patient to follow-up with Dr. Lauren in 2 to 3 days. Patient understands and agrees with plan. All questions were answered. Return precautions discussed include worsening symptoms, or any other concerns. 05/07 06:06 Order name: Test, Urine; Complete Time: 06:25 ms3 Administered Medications: 06:06 CANCELLED (Physician Discretion): ondansetron4 mg PO once ms3 06:35 Drug: Ondansetron Oral Disintegrating Tablet Oral Disintegrating Tablet 4 mg PO once; km8 AFTER NEGATIVE UPT Route: PO; 06:35 Follow up: Response: Medication administered at discharge. km8 Disposition Summary: 05/08/23 06:26 Discharge Ordered Notes: Location: Home ms3 Condition: Stable ms3 Diagnosis - Nausea with vomiting, unspecified ms3 Followup: ms3 - With: Nacho Lauren DO - When: 2 - 3 days - Reason: Recheck today's complaints Discharge Instructions: - Discharge Summary Sheet ms3 - Nausea and Vomiting, Adult ms3 Forms: - Medication Reconciliation Form ms3 - Thank You Letter ms3 - Antibiotic Education ms3 - Prescription Opioid Use ms3 - Patient Portal Instructions ms3 - Leadership Thank You Letter ms3 - Work release form rv1 Prescriptions: - ondansetron 4 mg Oral Tablet,disintegrating - take 1 tablet ORAL route every 8 hours as needed for nausea and vomiting; 10 ms3 tablet; Refills: 0, Product Selection Permitted Signatures: Dispatcher [employer] EDMS Elvis Garza DO DO ms3 Mamie Franco RN RN vc1 Carla Odom RN RN km8 Corrections: (The following items were deleted from the chart) 06:06 06:06 Ondansetron PO 4 mg PO once ordered. ms3 ms3 06:07 06:06 23-year-old female past medical history of hypertension presents to the emergency ms3 department for nausea and vomiting. Patient states she had vomiting yesterday and nausea this morning. Patient states her nausea and vomiting is episodic lasting approximately 1 hour each time it occurs. Patient denies any alleviating or inciting factors. Patient states there is a possibility she could be . ms3 06: 06:06 The history from the nurse's notes was reviewed and I agree with what is ms3 documented. ms3
--- NOTE | 2023-05-08 06:27 | ER ---
Nurse's Notes [facility] Name: Sil Gaytan Age: 23 yrs Sex: Female : 2000 Arrival Date: 05/08/2023 Time: 05:55 Bed 6 Private MD: Diagnosis: Nausea with vomiting, unspecified Presentation: 05/07 06:07 Chief complaint: Patient states: Patient states yesterday she kept vomiting and was vc1 nauseous with or without eating. Pt states she has been nauseous on and off all morning. Coronavirus screen: Vaccine status: Patient reports being unvaccinated. Client denies travel out of the [place] in the last 14 days. At this time, the client does not indicate any symptoms associated with coronavirus-19. Ebola Screen: Patient negative for fever greater than or equal to 101.5 degrees Fahrenheit, and additional compatible Ebola Virus Disease symptoms Patient denies exposure to infectious person. Patient denies travel to an Ebola-affected area in the 21 days before illness onset. No symptoms or risks identified at this time. Initial Sepsis Screen: Does the patient meet any 2 criteria? No. Patient's initial sepsis screen is negative. Does the patient have a suspected source of infection? No. Patient's initial sepsis screen is negative. Risk Assessment: Do you want to hurt yourself or someone else? Patient reports no desire to harm self or others. Note Patient has large bucees drink and snacks at bedside. Onset of symptoms was May 07, 2023. Care prior to arrival: None. Activity prior to arrival: None. Mechanism of Injury: No Mechanism of Injury. Transition of care: patient was not received from another setting of care. 06:07 Method Of Arrival: Ambulatory vc1 06:07 Acuity: DELMAR 4 vc1 Triage Assessment: 06:13 General: Appears in no apparent distress. comfortable, Behavior is calm, cooperative, vc1 appropriate for age. Pain: Denies pain. EENT: No deficits noted. No signs and/or symptoms were reported regarding the EENT system. Neuro: Level of Consciousness is awake, alert, obeys commands, Oriented to person, place, time, situation, Appropriate for age. Cardiovascular: No deficits noted. Heart tones S1 S2. Respiratory: No deficits noted. Airway is patent Respiratory effort is even, unlabored, Respiratory pattern is regular, symmetrical, Breath sounds are clear. GI: Abdomen is flat, non-distended, Bowel sounds present X 4 quads. Abd is soft and non tender Reports nausea, vomited yesterday, has not vomited today. : No deficits noted. No signs and/or symptoms were reported regarding the genitourinary system. Derm: No deficits noted. No signs and/or symptoms reported regarding the dermatologic system. Musculoskeletal: No deficits noted. No signs and/or symptoms reported regarding the musculoskeletal system. 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 Flu vaccine is not up to date. - Social history:: Smoking status: Patient denies any tobacco usage or history of. Screenin:12 [facility] ED Fall Risk Assessment (Adult) History of falling in the last 3 months, vc1 including since admission No falls in past 3 months (0 pts) Confusion or Disorientation No (0 pts) Intoxicated or Sedated No (0 pts) Impaired Gait No (0 pts) Mobility Assist Device Used No (0 pt) Altered Elimination No (0 pt) Score/Fall Risk Level 0 - 2 = Low Risk Oriented to surroundings, Maintained a safe environment, Educated pt \T\ family on fall prevention, incl call for assistance when getting out of bed. Abuse screen: Denies threats or abuse. Nutritional screening: No deficits noted. Tuberculosis screening: No symptoms or risk factors identified. Assessment: 06:15 General: Appears in no apparent distress. comfortable, Behavior is calm, cooperative, km8 appropriate for age. Pain: Denies pain. Neuro: Level of Consciousness is awake, alert, obeys commands, Oriented to person, place, time, situation. Cardiovascular: Denies chest pain, shortness of breath, Patient's skin is warm and dry. Respiratory: Airway is patent Respiratory effort is even, unlabored, Respiratory pattern is regular, symmetrical. GI: Abdomen is non-distended, Reports nausea. : No signs and/or symptoms were reported regarding the genitourinary system. EENT: No signs and/or symptoms were reported regarding the EENT system. Derm: No signs and/or symptoms reported regarding the dermatologic system. Skin is intact, is healthy with good turgor, Skin is dry, Skin is pink, warm \T\ dry. normal, Skin temperature is warm. Musculoskeletal: No signs and/or symptoms reported regarding the musculoskeletal system. Range of motion: intact in all extremities. Vital Signs: 06:07 BP 141 / 97; Pulse 87; Resp 14; Temp 97.2; Pulse Ox 100% ; Weight 81.65 kg; Height 5 vc1 ft. 7 in. ; Pain 0/10; 06:30 BP 128 / 84; Pulse 86; Resp 16; Pulse Ox 100% on R/A; km8 06:07 Body Mass Index 28.19 (81.65 kg, 170.18 cm) vc1 06:07 Pain Scale: Adult vc1 Lenore Coma Score: 06:15 Eye Response: spontaneous(4). Motor Response: obeys commands(6). Verbal Response: km8 oriented(5). Total: 15. ED Course: 05:57 Patient arrived in ED. gm2 06:02 Elvis Garza DO is Attending Physician. ms3 06:07 Test, Urine Sent. km8 06:07 Urine collected: clean catch specimen, clear. km8 06:11 Triage completed. vc1 06:11 Arm band placed on right wrist. vc1 06:12 Patient has correct armband on for positive identification. Bed in low position. Call vc1 light in reach. Pulse ox on. NIBP on. 06:15 Mamie Franco, RN is Primary Nurse. vc1 06:15 No provider procedures requiring assistance completed. Patient did not have IV access km8 during this emergency room visit. 06:26 Nacho Lauren DO is Referral Physician. ms3 06:30 Provided Education on: d/c teaching. km8 Administered Medications: 06:06 CANCELLED (Physician Discretion): ondansetron4 mg PO once ms3 06:35 Drug: Ondansetron Oral Disintegrating Tablet Oral Disintegrating Tablet 4 mg PO once; km8 AFTER NEGATIVE UPT Route: PO; 06:35 Follow up: Response: Medication administered at discharge. km8 Medication: 06:12 VIS not applicable for this client. vc1 Outcome: 06:26 Discharge ordered by MD. ms3 06:35 Discharged to home ambulatory, km8 06:35 Condition: good 06:35 Discharge instructions given to patient, Instructed on discharge instructions, follow up and referral plans. medication usage, Demonstrated understanding of instructions, follow-up care, medications, Prescriptions given X 1, 06:36 Patient left the ED. km8 Signatures: Elvis Garza, DO ms3 Mamie Franco RN RN vc1 Marci Phillips 2 Carla Odom RN RN km8 Corrections: (The following items were deleted from the chart) 06:07 06:06 The history from the nurse's notes was reviewed and I agree with what is ms3 documented. ms3
[2023-05-08 06:47] VITALS: BP 128/84; TEMP 97.2; O2SAT 100
== END ==
LOC: ER 05:55
DX: R11.2 Nausea with vomiting, unspecified (principal); Z88.0 Allergy status to penicillin; Z88.3 Allergy status to other anti-infective agents; Z88.5 Allergy status to narcotic agent; Z88.8 Allergy status to other drugs, medicaments and biological substances
CPT/HCPCS: 81025; Q0162; 99284

== ENCOUNTER 2023-12-02 22:45 | Emergency (ER) | payer OTHER ==
--- OUTSIDE RECORDS SUMMARY | 2023-12-02 22:57 | XMS REPORT | Continuity of Care Document ---
Author Name Unknown Address [address] [facility] [address] [place] [address] [facility] thconnect Address [address] [facility] 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 Role Phone PCP, PATIENT DOES NOT HAVE A Primary Care Physic eliseo Unavailable KASEY BLANCO Attending Clinician KASEY Petty Attending Clinician NAVA Charlton Attending Clinician Unavailable Doctor Unassigned, Edcouch Attending Clinician Jennifer Cheung Attending Clinician [phone] BREANNA ARMAS Attending Clinician BREANNA Conley Attending Clinician Unavaila ble Lab, Ang - Db Attending Clinician Unavailable JENNIFER GOMEZ Attending Clinician Danny Castañeda Nava JASON Attending Clinician JONE DELEON Attending Clinician Unavailable JONE DELEON Attending Clinician Unavailable NARDA BLACKWELL Attending Clinician Unavailable TUSHAR LAN Attending Clinician Unavail able ANTONETTE LUQUE Attending Clinician Unavaila ani [facility], [facility] Unavailable Tushar Villarreal Attending Clinician + Doctor Unassigned, Edcouch Attending Clinician U navailMOSHE Lu Attending Clinician Unavailable [facility], [facility] Nurse Attending Clinician Unava ilable HETAL NORRIS Attending Clinician Unavailable Jr ANDRES, Hetal Mario Attending Clinician [phone] Avtar GARDINER, Patt Attending Clinician UnavailAUSTIN Emery Attending Clinician Unavailable Maxim ANDRES, Austin Washington Attending Clinician [phone] Antonette Luque CNM Attending Clinician [phone] Risk, Mbh-Zxhko-Zy/High Attending Clinician Unav ailable Shereen Sky MD Attending Clinician +[phone] SHEREEN SKY Attending Clinician Unavailable Ultrasound, Ang-Mfchelo Attending Clinician Unavaila ble EDWIN CAGE Attending Clinician Unavailable Fauzia Edwin JASON Attending Clinician [phone] David Cooper DO Attending Clinician [phone] SARA SNYDER Attending Clinician Unavaila SARA Kauffman Attending Clinician Unavaila ble [facility]ician Tika vaprestonble Niki Villa Attending Clinician [phone] NIKI RALPH Attending Clinician Unavailab JAM Neville Attending Clinician Unavailable MARY ANN CURMP Attending Clinician Unavailable Ernesto Valente Attending Clinician [phone] ERNESTO PEACOCK Attending Clinician UnavailRosio Warren Attending Clinician [phone] Dylan Prieto MD Attending Clinician [phone] Maria PALACIOS CRNA R Attending Clinician Jeffery Dumont DO Attending Clinician Radha Charlton MD Attending Clinician [phone] Joselyn Selam JASON Attending Clinician [phone] SELAM ALVES Attending Clinician Unavailab SHI TolentinoSOL Admitting Clinician AUSTIN Hughes Admitting Clinician Unavailable HETAL NORRIS Admitting Clinician Unavailable JONE DELEON Admitting Clinician Unavailable AdHetal meneses MD Admitting Clinician [phone] Austin Arzola MD Admitting Clinician [phone] SARA SNYDER Admitting Clinician Unavailgeorgiana [facility] Payers Payer Name Policy Type Policy Number Effective Date Expirati on Date Source [facility] [id number] 2021 00:00:00 [facility] STAR [id number] 2023 00:00:00 Problems Condition Name Condition Details Condition Category Status Onset Date Resolution Date Last Treatment Date Treating Clinician Comments Source [facility] woman exam Well woman exam Disease Active 7-12 00:00: 00 [facility] History of anxiety and depression History of anxiety and depression Disease Active 2021-02 0-27 00:00: 00 [facility] Asthma during Asthma during Disease Active 2019-02 0-29 00:00: 00 [facility] Declines flu vaccine Declines flu vaccine Disease Resolve d 2021-1 0-27 00:00: 00 2023-08-10 00:00:00 2023-08-10 13:43:35 [facility] Overweight Overweight Disease Resolve d 2020-0 4-13 00:00: 00 2023-08-10 00:00:00 2023-08-10 13:43:38 [facility] Routine follow-up Routine follow-up Disease Resolve d 2022-0 6-16 00:00: 00 2022-09-07 00:00:00 2022-09-07 16:20:16 [facility] induced hypertensi on, antepartum induced hypertensi on, antepartum Disease Resolve d 2022-0 6-02 00:00: 00 2022-08-12 00:00:00 2022-08-12 11:06:28 [facility] state state Disease Resolve d 2022-0 6-02 00:00: 00 2022-08-12 00:00:00 2022-08-12 11:06:26 [facility] Obesity (BMI 30-39.9) Obesity (BMI 30-39.9) Disease Resolve d 2022-0 5-28 00:00: 00 2022-08-12 00:00:00 2022-08-12 11:06:23 [facility] Postoperat chris fever Postoperat chris fever Disease Resolve d 2022-0 5-28 00:00: 00 2022-08-12 00:00:00 2022-08-12 11:06:25 [facility] premature rupture of membranes (PPROM) with onset of labor within 24 hours of rupture in third trimester, antepartum premature rupture of membranes (PPROM) with onset of labor within 24 hours of rupture in third trimester, antepartum Disease Resolve d 2022-0 5-25 00:00: 00 2022-08-12 00:00:00 2022-08-12 11:06:31 [facility] 36 weeks gestation of 36 weeks gestation of Disease Resolve d 2022-0 5-25 00:00: 00 2022-08-12 00:00:00 2022-08-12 11:06:07 [facility] Liveborn infant, of [place]cke[place] , born in hospital by delivery Liveborn , of mckeon , born in hospital by delivery Disease Resolve d 2022-0 5-25 00:00: 00 2022-08-12 00:00:00 2022-08-12 11:06:18 [facility] UTI in UTI in Disease Resolve d 2022-0 5-24 00:00: 00 2022-08-12 00:00:00 2022-08-12 11:06:35 Overview: Formattin g of this note might be different from the original. Per meds sent and patient notified [facility] Supervisio n of high-risk Supervisio n of high-risk Disease Resolve d 2022-0 3-02 00:00: 00 2022-08-12 00:00:00 2022-08-12 11:06:33 [facility] Multiparit y Multiparit y Disease Resolve d 2022-0 3-02 00:00: 00 2022-08-12 00:00:00 2022-08-12 11:06:20 [facility] History of pre-eclamp raymond in prior , currently History of pre-eclamp raymond in prior , currently Disease Resolve d 2021-1 0-27 00:00: 00 2022-08-12 00:00:00 2022-08-12 11:06:12 [facility] related nausea, antepartum related nausea, antepartum Disease Resolve d 2021-1 0-27 00:00: 00 2022-08-12 00:00:00 2022-08-12 11:06:30 [facility] History of delivery, currently History of delivery, currently Disease Resolve d 2021-1 0-13 00:00: 00 2022-08-12 00:00:00 2022-08-12 11:06:13 [facility] Missed menses Missed menses Disease Resolve d 2021-1 0-13 00:00: 00 2021-12-23 00:00:00 2021-12-23 09:45:24 [facility] Other general counseling and advice for contracept chris management Other general counseling and advice for contracept chris management Disease Resolve d 2021-0 8-02 00:00: 00 2021-12-23 00:00:00 2021-12-23 09:45:16 [facility] Elevated blood pressure reading without diagnosis of hypertensi on Elevated blood pressure reading without diagnosis of hypertensi on Disease Resolve d 2021-0 8-02 00:00: 00 2021-12-23 00:00:00 2021-12-23 09:45:21 [facility] Encounter for surveillan ce of contracept chris pills Encounter for surveillan ce of contracept chris pills Disease Resolve d 1 1-22 00:00: 00 2021-12-23 00:00:00 2021-12-23 09:45:20 [facility] with inconclusi ve viability, single or unspecifie d fetus with inconclusi ve viability, single or unspecifie d fetus Disease Resolve d 2020-0 4-13 00:00: 00 2021-12-23 00:00:00 2021-12-23 09:45:15 [facility] Well woman exam Well woman exam Disease Resolve d 2020-0 7-29 00:00: 00 2021-01-18 00:00:00 2021-01-18 16:29:36 [facility] care and examinatio n of lactating mother care and examinatio n of lactating mother Disease Resolve d 0 6-22 00:00: 00 2021-01-18 00:00:00 2021-01-18 16:29:35 [facility] Stress at home Stress at home Disease Resolve d 2019-02 1-24 00:00: 00 2021-01-18 00:00:00 2021-01-18 16:29:33 [facility] Depression affecting Depression affecting Disease Resolve d 2019-02 0-29 00:00: 00 2021-01-18 00:00:00 2021-01-18 16:29:31 [facility] premature rupture of membranes with onset of labor within 24 hours of rupture in third trimester premature rupture of membranes with onset of labor within 24 hours of rupture in third trimester Disease Resolve d 2020-0 5-31 00:00: 00 2020-08-18 00:00:00 2020-08-18 13:53:11 [facility] Liveborn infant, of [place] , born in hospital by vaginal delivery Liveborn infant, of [place]cke[place] , born in hospital by vaginal delivery Disease Resolve d 2020-0 5-31 00:00: 00 2020-08-18 00:00:00 2020-08-18 13:53:14 [facility] Severe pre-eclamp raymond in third trimester Severe pre-eclamp raymond in third trimester Disease Resolve d 2020-0 5-30 00:00: 00 2020-08-18 00:00:00 2020-08-18 13:53:09 [facility] 35 weeks gestation of 35 weeks gestation of Disease Resolve d 2020-0 5-30 00:00: 00 2020-08-18 00:00:00 2020-08-18 13:53:19 [facility] uterine contractio ns in third trimester, antepartum uterine contractio ns in third trimester, antepartum Disease Resolve d 2020-0 5-30 00:00: 00 2020-08-18 00:00:00 2020-08-18 13:53:21 [facility] Back pain affecting in third trimester Back pain affecting in third trimester Disease Resolve d 2020-0 5-11 00:00: 00 2020-08-18 00:00:00 2020-08-18 13:53:17 [facility] Chlamydia infection affecting Chlamydia infection affecting Disease Resolve d 2019-02 0-30 00:00: 00 2020-08-18 00:00:00 2020-08-18 13:53:23 [facility] High risk teen in second trimester High risk teen in second trimester Disease Resolve d 2019- 0-29 00:00: 00 2020-07-26 00:00:00 2020-07-26 17:32:33 [facility] Asthma Asthma Disease Resolve d 1-24 00:00: 00 2020-04-23 00:00:00 2020-04-23 15:56:52 [facility] Refused influenza vaccine Refused influenza vaccine Disease Resolve d 2019-02 0-29 00:00: 00 2020-02-18 00:00:00 2020-02-18 14:30:51 [facility] Flu-like symptoms Flu-like symptoms Disease Resolve d 1-24 00:00: 00 2019-12-26 00:00:00 2019-12-26 14:33:40 [facility] Screen for STD (sexually transmitte d disease) Screen for STD (sexually transmitte d disease) Disease Resolve d 2018-02 00:00: 00 2019-12-26 00:00:00 2019-12-26 14:33:36 [facility] Allergies, Adverse [...] 00:00: 00 [facility] PENICILL INS Drug Class Active Rash 06-03 00:00: 00 [facility] PREDNISO LONE DRUG INGREDI Active Rash 06-03 00:00: 00 [facility] Penicill ins Propensi ty to adverse reaction s Active Rash 06-03 00:00: 00 [facility] Social History Social Habit Start Date Stop Date Quantity Comments Source ASSERTION 2021-11-25 00:00:00 [facility] History SDOH Alcohol Std Drinks [facility] History SDOH Alcohol Binge [facility] Comment 2023-11-02 00:00:00 2023-11-02 00:00:00 occasional [facility] Alcoholic beverage intake 2023-11-02 00:00:00 2023-11-02 00:00:00 Current drinker of alcohol (finding) [facility] History of Social function 2023-09-21 00:00:00 2023-09-21 00:00:00 [facility] Alcohol intake 2022-09-07 00:00:00 2022-09-07 00:00:00 Ex-drinker (finding) [facility] Exposure to SARS-CoV-2 (event) 2022-07-11 00:00:00 2022-07-21 10:35:00 Not sure [facility] Tobacco use and exposure 2022-07-21 00:00:00 2022-07-21 00:00:00 Smokeless tobacco non-user [facility] History SDOH Alcohol Frequency 2018-12-20 00:00:00 2018-12-20 00:00:00 1 [facility] Sex assigned at 2000 00:00:00 2000 00:00:00 [facility] Smoking Status Start Date Stop Date Source Never smoked tobacco [facility] Medications Ordered Medication Name Filled Medication Name Start Date Stop Date Current Medication? Ordering Clinician Indication Dosage Frequency Signature (SIG) Comments Components Source hydroCHLORO thiazide 25 mg tablet 11-01 00:00: 00 Yes [id number] 25mg Take 1 tablet by mouth in the morning. [facility] norethindro ne 0.35 mg tablet 09-20 00:00: 00 Yes [id number] 1{tbl} Take 1 tablet by mouth in the morning. [facility] methocarbam oL (ROBAXIN) tablet 500 mg 09-16 08:30: 00 09-16 08:09 :00 No 500mg 500 mg, Oral, ONCE NOW, 1 dose, On 09/17/23 at 0330, Routine [facility] ketorolac (TORADOL) injection 30 mg 09-16 08:30: 00 09-16 08:10 :00 No 30mg 30 mg, Intramuscu lar, ONCE, 1 dose, On 09/17/23 at 0330, Routine [facility] ibuprofen 800 mg tablet 09-16 00:00: 00 11-01 00:00 :00 No [id number] 800mg Take 1 tablet by mouth every 6 (six) hours as needed for Pain (scale 1-3) for up to [address] [facility] methocarbam oL 750 mg tablet 09-16 00:00: 00 09-22 04:59 :00 Yes [id number] 750mg Take 1 tablet by mouth 4 (four) times daily for [address] [facility] polyethylen e glycol 3350 (MIRALAX) 17 gram powder 09-16 00:00: 00 09-20 04:59 :00 Yes [id number] 1{packe t} Take 1 Packet by mouth in the morning for [address] [facility] acetaminoph en (TYLENOL) tablet 650 mg 08-26 03:15: 00 08-26 03:19 :00 No 650mg 650 mg, Oral, ONCE, 1 dose, On 08/26/23 at 2215, YULY [facility] copper (PARAGARD T 380A) IUD 1 Intra Uterine Device 08-23 14:00: 00 08-23 13:21 :00 No [id number] 1{IUD} 1 Intra Uterine Device, Intrauteri ne, ONCE, 1 dose, On Alissa 08/24/23 at 0900, Routine [facility] doxycycline hyclate 100 mg capsule 08-14 00:00: 00 08-22 04:59 :00 No [id number] 100mg Take 1 capsule by mouth every 12 (twelve) hours for [address] [facility] hydroCHLORO thiazide 25 mg tablet 08-09 00:00: 00 11-01 00:00 :00 No [id number] 25mg Take 1 tablet by mouth in the morning. [facility] CEPHALEXIN ORAL 09-07 15:39: 00 11-01 00:00 :00 No Take by mouth 2 (two) times daily. [facility] norethindro ne 0.35 mg tablet 09-07 00:00: 00 09-20 00:00 :00 No [id number] 1{tbl} Take 1 tablet by mouth in the morning. [facility] acetaminoph en (TYLENOL) tablet 650 mg 07-29 13:29: 04 Yes 650mg 650 mg, Oral, Q6HPRN, Starting on Mon07/29/22 at 0829, Until Discontinu ed, Routine, Pain (scale 1-3), Pain (scale 4-6) [facility] labetaloL (NORMODYNE) tablet 200 mg 07-29 06:00: 00 Yes 200mg 200 mg, Oral, Q12H, First dose on Mon07/29/22 at 0100, Until Discontinu ed, Routine [facility] labetaloL 200 mg tablet 07-29 00:00: 00 11-01 00:00 :00 No [id number] 200mg Take 1 tablet by mouth every [...] tablet, Oral, Q6HPRN, Starting on Mon07/22/22 at 204, Until Mon07/24/22 at 2039, Routine, Pain (scale [...] [address] [facility] ibuprofen 600 mg tablet 07-23 00:00: 00 Yes [id number] 600mg Take 1 tablet by mouth every 6 (six) hours as needed (Pain). Take with food or milk. [facility] vitamin w/FA tablet 07-23 00:00: 00 Yes [id number] 1{tbl} Take 1 tablet by mouth in the morning. [facility] vitamin w/FA tablet 07-23 00:00: 00 11-01 00:00 :00 No [id number] 1{tbl} Take 1 tablet by mouth in the morning. [facility] docusate 100 mg capsule 07-23 00:00: 00 11-01 00:00 :00 No [id number] 200mg Take 2 capsules by mouth once daily as needed for Constipati on. [facility] ferrous sulfate 325 mg (65 mg iron) tablet 07-23 00:00: 00 11-01 00:00 :00 No [id number] 325mg Take 1 tablet by mouth in [...] in 24 hours. Indication s: acute pain [facility] ibuprofen (IBU) tablet 600 mg 07-22 23:00: 00 Yes 600mg 600 mg, Oral, Q6H, First dose on Mon07/22/22 at 1800, Until Discontinu ed, Routine [facility] acetaminoph en (TYLENOL) tablet 650 mg 07-22 20:00: 00 Yes 650mg 650 mg, Oral, Q6HPRN, Starting on Mon07/22/22 at 1500, Until Discontinu ed, Routine, Pain [facility] acetaminoph en ADULT (OFIRMEV) injection 1,000 mg 07-22 02:00: 00 07-22 15:02 :00 No 1000mg 1,000 mg, IV Infusion, at 400 mL/hr Administer over 15 Minutes, Q6H, 3 doses, First dose (after last modificati on) on Mon07/21/22 at 2100, Last dose on Mon07/22/22 at 0600, Routine
Indicatio n: Perioperat chris Patient [facility] ketorolac (TORADOL) injection 30 mg 07-21 23:00: 00 07-22 16:43 :00 No 30mg 30 mg, Slow IV Push, Q6H, 4 doses, First dose on Mon07/21/22 at 1800, Last dose on Mon07/22/22 at 1200, Routine [facility] lactated ringers IV infusion 1,000 mL 07-21 21:30: 00 07-21 20:12 :06 No 1000mL at 125 mL/hr, 1,000 mL, IV Infusion, ONCE, 1 dose, On Mon07/21/22 at 1630, Routine [facility] diphenhydrA MINE (BENADRYL) injection 25 mg 07-21 20:34: 05 Yes 25mg 25 mg, Slow IV Push, Q6HPRN, Starting on Mon07/21/22 at 1534, Until Discontinu ed, Routine, Itching [facility] diphenhydrA MINE (BENADRYL) tablet 25 mg 07-21 20:34: 05 Yes 25mg 25 mg, Oral, Q6HPRN, Starting on Mon07/21/22 at 1534, Until Discontinu ed, Routine, Sleep, Itching [facility] ondansetron (ZOFRAN (PF)) injection 4 mg 07-21 20:34: 05 Yes 4mg 4 mg, Slow IV Push, Q8HPRN, Starting on Mon07/21/22 at 1534, Until Discontinu ed, Routine, Nausea and Vomiting (N/V) [facility] bisacodyL (DULCOLAX) suppository 10 mg 07-21 20:34: 05 Yes 10mg 10 mg, Rectal, QDAILYPRN, Starting on Alissa 07/21/22 at 1534, [...] mg, IV Piggyback, ONCE, 1 dose, On Alissa 07/21/22 at 1430, Administer over 30 [...] 07-19 00:00: 00 07-24 00:00 :00 No [id number] 100mg Take 1 capsule by mouth in [...] 04-14 00:00: 00 04-22 05:59 :00 No [id number] 500mg Take 1 tablet by mouth in the morning and 1 tablet in the evening. Do all this for [address] [facility] hydroxyprog esterone(PF ) (KATHLEEN AUTO-INJECT OR) 275 mg/1.1 mL injection 275 mg 03-31 06:00: 00 07-21 04:59 :00 No [id number] 275mg [facility] hydroxyprog esterone(PF ) (KATHLEEN AUTO-INJECT OR) 275 mg/1.1 mL injection 275 mg 03-24 16:45: 00 03-24 15:59 :00 No [id number] 275mg [facility] hydroxyprog esterone,PF , 275 mg/1.1 mL injection 03-07 00:00: 00 07-21 00:00 :00 No [id number] 275mg inject 1.1 mL under the skin weekly. [facility] hydroxyprog esterone caproate, ppres, 250 mg/mL injection 2021-02 00:00: 00 Yes [id number] 250mg 1 mL by Intramuscu lar route weekly. [facility] HYDROXYprog est,PF,,pre g presv, 250 mg/mL (1 mL) injection 2021-0216 00:00: 00 07-21 00:00 :[address] [facility] hydroxyprog esterone 250 mg/mL injection 2021-02 2-15 00:00: 00 03-07 00:00 :00 No [id number] 250mg 1 mL by Intramuscu lar route weekly. [facility] chlorhexidi ne 0.12 % mouthwash 2021-02 2- 00:00: 00 07-21 00:00 :00 No AFTER BRUSHING TEETH, SWISH 15ML IN MOUTH FOR 30 SECONDS THEN SPIT OUT TWICE DAILY [facility] 25/iron fum/folic/d betancur (-1 ORAL) 2021-02 0 09:26: 35 Yes Take by mouth. [facility] PROAIR HFA 90 mcg/actuati on inhaler 10-26 00:00: 00 07-23 00:00 :[address] [facility] norgestimat e-ethinyl estradioL (TRI-SPRINT EC) 0.18/0.215/ 0.25 mg-35 mcg (28) tablet 10-12 00:00: 00 Yes [id number] 1{tbl} Take 1 tablet by mouth in the morning. [facility] norgestimat e-ethinyl estradioL (ORTHO TRI-CYCLEN, 28,) 0.18/0.215/ 0.25 mg-35 mcg (28) tablet 2020-02 1 00:00: 00 12-09 00:00 :00 No [id number] 1{tbl} Take 1 tablet by mouth daily. [facility] Immunizations Ordered Immunization Name Filled Immunization Name Date Status Comments Source TDAP 2022-05-26 00:00:00 Completed [facility] TDAP 2022-05-26 00:00:00 Completed [facility] TDAP 2022-05-26 00:00:00 Completed [facility] TDAP 2022-05-26 00:00:00 Completed [facility] TDAP 2022-05-26 00:00:00 Completed [facility] TDAP 2022-05-26 00:00:00 Completed [facility] TDAP 2022-05-26 00:00:00 Completed [facility] TDAP 2022-05-26 00:00:00 Completed [facility] TDAP 2022-05-26 00:00:00 Completed [facility] TDAP 2022-05-26 00:00:00 Completed [facility] TDAP 2022-05-26 00:00:00 Completed [facility] TDAP 2022-05-26 00:00:00 Completed [facility] TDAP 2022-05-26 00:00:00 Completed [facility] TDAP 2022-05-26 00:00:00 Completed [facility] TDAP 2022-05-26 00:00:00 Completed [facility] TDAP 2022-05-26 00:00:00 Completed [facility] TDAP 2022-05-26 00:00:00 Completed [facility] TDAP 2022-05-26 00:00:00 Completed [facility] TDAP 2022-05-26 00:00:00 Completed [facility] TDAP 2022-05-26 00:00:00 Completed [facility] TDAP 2022-05-26 00:00:00 Completed [facility] TDAP 2022-05-26 00:00:00 Completed [facility] TDAP 2020-06-09 00:00:00 Completed [facility] TDAP 2020-06-09 00:00:00 Completed [facility] TDAP 2020-06-09 00:00:00 Completed [facility] TDAP 2020-06-09 00:00:00 Completed [facility] TDAP 2020-06-09 00:00:00 Completed [facility] TDAP 2020-06-09 00:00:00 Completed [facility] TDAP 2020-06-09 00:00:00 Completed [facility] TDAP 2020-06-09 00:00:00 Completed [facility] TDAP 2020-06-09 00:00:00 Completed [facility] TDAP 2020-06-09 00:00:00 Completed [facility] TDAP 2020-06-09 00:00:00 Completed [facility] TDAP 2020-06-09 00:00:00 Completed [facility] TDAP 2020-06-09 00:00:00 Completed [facility] TDAP 2020-06-09 00:00:00 Completed [facility] TDAP 2020-06-09 00:00:00 Completed [facility] TDAP 2020-06-09 00:00:00 Completed [facility] TDAP 2020-06-09 00:00:00 Completed [facility] TDAP 2020-06-09 00:00:00 Completed [facility] TDAP 2020-06-09 00:00:00 Completed [facility] TDAP 2020-06-09 00:00:00 Completed [facility] TDAP 2020-06-09 00:00:00 Completed [facility] TDAP 2020-06-09 00:00:00 Completed [facility] TDAP 2020-06-09 00:00:00 Completed [facility] TDAP 2020-06-09 00:00:00 Completed [facility] TDAP 2020-06-09 00:00:00 Completed [facility] TDAP 2020-06-09 00:00:00 Completed [facility] TDAP 2020-06-09 00:00:00 Completed [facility] TDAP 2020-06-09 00:00:00 Completed [facility] TDAP 2020-06-09 00:00:00 Completed [facility] TDAP 2020-06-09 00:00:00 Completed [facility] TDAP 2020-06-09 00:00:00 Completed [facility] TDAP 2020-06-09 00:00:00 Completed [facility] TDAP 2020-06-09 00:00:00 Completed [facility] TDAP 2020-06-09 00:00:00 Completed [facility] TDAP 2020-06-09 00:00:00 Completed [facility] TDAP 2020-06-09 00:00:00 Completed [facility] TDAP 2020-06-09 00:00:00 Completed [facility] TDAP 2020-06-09 00:00:00 Completed [facility] TDAP 2020-06-09 00:00:00 Completed [facility] TDAP 2020-06-09 00:00:00 Completed [facility] TDAP 2020-06-09 00:00:00 Completed [facility] TDAP 2020-06-09 00:00:00 Completed [facility] TDAP 2020-06-09 00:00:00 Completed [facility] TDAP 2020-06-09 00:00:00 Completed [facility] TDAP 2020-06-09 00:00:00 Completed [facility] TDAP 2020-06-09 00:00:00 Completed [facility] TDAP 2020-06-09 00:00:00 Completed [facility] TDAP 2020-06-09 00:00:00 Completed [facility] TDAP 2020-06-09 00:00:00 Completed [facility] TDAP 2020-06-09 00:00:00 Completed [facility] TDAP 2020-06-09 00:00:00 Completed [facility] Influenza Virus Vaccine Quad .5 mL IM 6+ MO 2020-01-21 00:00:00 Completed [facility] Influenza Virus Vaccine Quad .5 mL IM 6+ MO 2020-01-21 00:00:00 Completed [facility] Influenza Virus Vaccine Quad .5 mL IM 6+ MO 2020-01-21 00:00:00 Completed [facility] Influenza Virus Vaccine Quad .5 mL IM 6+ MO 2020-01-21 00:00:00 Completed [facility] Influenza Virus Vaccine Quad .5 mL IM 6+ MO 2020-01-21 00:00:00 Completed [facility] Influenza Virus Vaccine Quad .5 mL IM 6+ MO 2020-01-21 00:00:00 Completed [facility] Influenza Virus Vaccine Quad .5 mL IM 6+ MO 2020-01-21 00:00:00 Completed [facility] Influenza Virus Vaccine Quad .5 mL IM 6+ MO 2020-01-21 00:00:00 Completed [facility] Influenza Virus Vaccine Quad .5 mL IM 6+ MO 2020-01-21 00:00:00 Completed [facility] Influenza Virus Vaccine Quad .5 mL IM 6+ MO 2020-01-21 00:00:00 Completed [facility] Influenza Virus Vaccine Quad .5 mL IM 6+ MO 2020-01-21 00:00:00 Completed [facility] Influenza Virus Vaccine Quad .5 mL IM 6+ MO 2020-01-21 00:00:00 Completed [facility] Influenza Virus Vaccine Quad .5 mL IM 6+ MO 2020-01-21 00:00:00 Completed [facility] Influenza Virus Vaccine Quad .5 mL IM 6+ MO 2020-01-21 00:00:00 Completed [facility] Influenza Virus Vaccine Quad .5 mL IM 6+ MO 2020-01-21 00:00:00 Completed [facility] Influenza Virus Vaccine Quad .5 mL IM 6+ MO 2020-01-21 00:00:00 Completed [facility] Influenza Virus Vaccine Quad .5 mL IM 6+ MO 2020-01-21 00:00:00 Completed [facility] Influenza Virus Vaccine Quad .5 mL IM 6+ MO 2020-01-21 00:00:00 Completed [facility] Influenza Virus Vaccine Quad .5 mL IM 6+ MO 2020-01-21 00:00:00 Completed [facility] Influenza Virus Vaccine Quad .5 mL IM 6+ MO 2020-01-21 00:00:00 Completed [facility] Influenza Virus Vaccine Quad .5 mL IM 6+ MO 2020-01-21 00:00:00 Completed [facility] Influenza Virus Vaccine Quad .5 mL IM 6+ MO 2020-01-21 00:00:00 Completed [facility] Influenza Virus Vaccine Quad .5 mL IM 6+ MO 2020-01-21 00:00:00 Completed [facility] Influenza Virus Vaccine Quad .5 mL IM 6+ MO 2020-01-21 00:00:00 Completed [facility] Influenza Virus Vaccine Quad .5 mL IM 6+ MO 2020-01-21 00:00:00 Completed [facility] Influenza Virus Vaccine Quad .5 mL IM 6+ MO 2020-01-21 00:00:00 Completed [facility] Influenza Virus Vaccine Quad .5 mL IM 6+ MO 2020-01-21 00:00:00 Completed [facility] Influenza Virus Vaccine Quad .5 mL IM 6+ MO 2020-01-21 00:00:00 Completed [facility] Influenza Virus Vaccine Quad .5 mL IM 6+ MO 2020-01-21 00:00:00 Completed [facility] Influenza Virus Vaccine Quad .5 mL IM 6+ MO 2020-01-21 00:00:00 Completed [facility] Influenza Virus Vaccine Quad .5 mL IM 6+ MO 2020-01-21 00:00:00 Completed [facility] Influenza Virus Vaccine Quad .5 mL IM 6+ MO 2020-01-21 00:00:00 Completed [facility] Influenza Virus Vaccine Quad .5 mL IM 6+ MO 2020-01-21 00:00:00 Completed [facility] Influenza Virus Vaccine Quad .5 mL IM 6+ MO 2020-01-21 00:00:00 Completed [facility] Influenza Virus Vaccine Quad .5 mL IM 6+ MO 2020-01-21 00:00:00 Completed [facility] Influenza Virus Vaccine Quad .5 mL IM 6+ MO 2020-01-21 00:00:00 Completed [facility] Influenza Virus Vaccine Quad .5 mL IM 6+ MO 2020-01-21 00:00:00 Completed [facility] Influenza Virus Vaccine Quad .5 mL IM 6+ MO 2020-01-21 00:00:00 Completed [facility] Influenza Virus Vaccine Quad .5 mL IM 6+ MO 2020-01-21 00:00:00 Completed [facility] Influenza Virus Vaccine Quad .5 mL IM 6+ MO 2020-01-21 00:00:00 Completed [facility] Influenza Virus Vaccine Quad .5 mL IM 6+ MO 2020-01-21 00:00:00 Completed [facility] Influenza Virus Vaccine Quad .5 mL IM 6+ MO 2020-01-21 00:00:00 Completed [facility] Influenza Virus Vaccine Quad .5 mL IM 6+ MO 2020-01-21 00:00:00 Completed [facility] Influenza Virus Vaccine Quad .5 mL IM 6+ MO 2020-01-21 00:00:00 Completed [facility] Influenza Virus Vaccine Quad .5 mL IM 6+ MO 2020-01-21 00:00:00 Completed [facility] Influenza Virus Vaccine Quad .5 mL IM 6+ MO 2020-01-21 00:00:00 Completed [facility] Influenza Virus Vaccine Quad .5 mL IM 6+ MO 2020-01-21 00:00:00 Completed [facility] Influenza Virus Vaccine Quad .5 mL IM 6+ MO 2020-01-21 00:00:00 Completed [facility] Influenza Virus Vaccine Quad .5 mL IM 6+ MO 2020-01-21 00:00:00 Completed [facility] Influenza Virus Vaccine Quad .5 mL IM 6+ MO 2020-01-21 00:00:00 Completed [facility] Influenza Virus Vaccine Quad .5 mL IM 6+ MO 2020-01-21 00:00:00 Completed [facility] Meningococcal Vaccine 2018-10-18 00:00:00 Completed [facility] TDAP 2018-10-18 00:00:00 Completed [facility] Meningococcal B, OMV 2018-10-18 00:00:00 Completed [facility] Meningococcal Vaccine 2018-10-18 00:00:00 Completed [facility] TDAP 2018-10-18 00:00:00 Completed [facility] Meningococcal B, OMV 2018-10-18 00:00:00 Completed [facility] Meningococcal Vaccine 2018-10-18 00:00:00 Completed [facility] TDAP 2018-10-18 00:00:00 Completed [facility] Meningococcal B, OMV 2018-10-18 00:00:00 Completed [facility] Meningococcal Vaccine 2018-10-18 00:00:00 Completed [facility] TDAP 2018-10-18 00:00:00 Completed [facility] Meningococcal B, OMV 2018-10-18 00:00:00 Completed [facility] Meningococcal Vaccine 2018-10-18 00:00:00 Completed [facility] TDAP 2018-10-18 00:00:00 Completed [facility] Meningococcal B, OMV 2018-10-18 00:00:00 Completed [facility] Meningococcal Vaccine 2018-10-18 00:00:00 Completed [facility] TDAP 2018-10-18 00:00:00 Completed [facility] Meningococcal B, OMV 2018-10-18 00:00:00 Completed [facility] Meningococcal Vaccine 2018-10-18 00:00:00 Completed [facility] TDAP 2018-10-18 00:00:00 Completed [facility] Meningococcal B, OMV 2018-10-18 00:00:00 Completed [facility] Meningococcal Vaccine 2018-10-18 00:00:00 Completed [facility] TDAP 2018-10-18 00:00:00 Completed [facility] Meningococcal B, OMV 2018-10-18 00:00:00 Completed [facility] Meningococcal Vaccine 2018-10-18 00:00:00 Completed [facility] TDAP 2018-10-18 00:00:00 Completed [facility] Meningococcal B, OMV 2018-10-18 00:00:00 Completed [facility] Meningococcal Vaccine 2018-10-18 00:00:00 Completed [facility] TDAP 2018-10-18 00:00:00 Completed [facility] Meningococcal B, OMV 2018-10-18 00:00:00 Completed [facility] Meningococcal Vaccine 2018-10-18 00:00:00 Completed [facility] TDAP 2018-10-18 00:00:00 Completed [facility] Meningococcal B, OMV 2018-10-18 00:00:00 Completed [facility] Meningococcal Vaccine 2018-10-18 00:00:00 Completed [facility] TDAP 2018-10-18 00:00:00 Completed [facility] Meningococcal B, OMV 2018-10-18 00:00:00 Completed [facility] Meningococcal Vaccine 2018-10-18 00:00:00 Completed [facility] TDAP 2018-10-18 00:00:00 Completed [facility] Meningococcal B, OMV 2018-10-18 00:00:00 Completed [facility] Meningococcal Vaccine 2018-10-18 00:00:00 Completed [facility] TDAP 2018-10-18 00:00:00 Completed [facility] Meningococcal B, OMV 2018-10-18 00:00:00 Completed [facility] Meningococcal Vaccine 2018-10-18 00:00:00 Completed [facility] TDAP 2018-10-18 00:00:00 Completed [facility] Meningococcal B, OMV 2018-10-18 00:00:00 Completed [facility] Meningococcal Vaccine 2018-10-18 00:00:00 Completed [facility] TDAP 2018-10-18 00:00:00 Completed [facility] Meningococcal B, OMV 2018-10-18 00:00:00 Completed [facility] Meningococcal Vaccine 2018-10-18 00:00:00 Completed [facility] TDAP 2018-10-18 00:00:00 Completed [facility] Meningococcal B, OMV 2018-10-18 00:00:00 Completed [facility] Meningococcal Vaccine 2018-10-18 00:00:00 Completed [facility] TDAP 2018-10-18 00:00:00 Completed [facility] Meningococcal B, OMV 2018-10-18 00:00:00 Completed [facility] Meningococcal Vaccine 2018-10-18 00:00:00 Completed [facility] TDAP 2018-10-18 00:00:00 Completed [facility] Meningococcal B, OMV 2018-10-18 00:00:00 Completed [facility] Meningococcal Vaccine 2018-10-18 00:00:00 Completed [facility] TDAP 2018-10-18 00:00:00 Completed [facility] Meningococcal B, OMV 2018-10-18 00:00:00 Completed [facility] Meningococcal Vaccine 2018-10-18 00:00:00 Completed [facility] TDAP 2018-10-18 00:00:00 Completed [facility] Meningococcal B, OMV 2018-10-18 00:00:00 Completed [facility] Meningococcal Vaccine 2018-10-18 00:00:00 Completed [facility] TDAP 2018-10-18 00:00:00 Completed [facility] Meningococcal B, OMV 2018-10-18 00:00:00 Completed [facility] Meningococcal Vaccine 2018-10-18 00:00:00 Completed [facility] TDAP 2018-10-18 00:00:00 Completed [facility] Meningococcal B, OMV 2018-10-18 00:00:00 Completed [facility] Meningococcal Vaccine 2018-10-18 00:00:00 Completed [facility] TDAP 2018-10-18 00:00:00 Completed [facility] Meningococcal B, OMV 2018-10-18 00:00:00 Completed [facility] Meningococcal Vaccine 2018-10-18 00:00:00 Completed [facility] TDAP 2018-10-18 00:00:00 Completed [facility] Meningococcal B, OMV 2018-10-18 00:00:00 Completed [facility] Meningococcal Vaccine 2018-10-18 00:00:00 Completed [facility] TDAP 2018-10-18 00:00:00 Completed [facility] Meningococcal B, OMV 2018-10-18 00:00:00 Completed [facility] Meningococcal Vaccine 2018-10-18 00:00:00 Completed [facility] TDAP 2018-10-18 00:00:00 Completed [facility] Meningococcal B, OMV 2018-10-18 00:00:00 Completed [facility] Meningococcal Vaccine 2018-10-18 00:00:00 Completed [facility] TDAP 2018-10-18 00:00:00 Completed [facility] Meningococcal B, OMV 2018-10-18 00:00:00 Completed [facility] Meningococcal Vaccine 2018-10-18 00:00:00 Completed [facility] TDAP 2018-10-18 00:00:00 Completed [facility] Meningococcal B, OMV 2018-10-18 00:00:00 Completed [facility] Meningococcal Vaccine 2018-10-18 00:00:00 Completed [facility] TDAP 2018-10-18 00:00:00 Completed [facility] Meningococcal B, OMV 2018-10-18 00:00:00 Completed [facility] Meningococcal Polysaccharide (groups A, C, Y and W-135) conjugate vaccine (MCV4P) 2018-10-18 00:00:00 Completed [facility] Meningococcal Vaccine 2018-10-18 00:00:00 Completed [facility] TDAP 2018-10-18 00:00:00 Completed [facility] Meningococcal B, OMV 2018-10-18 00:00:00 Completed [facility] Meningococcal Polysaccharide (groups A, C, Y and W-135) conjugate vaccine (MCV4P) 2018-10-18 00:00:00 Completed [facility] Meningococcal Vaccine 2018-10-18 00:00:00 Completed [facility] TDAP 2018-10-18 00:00:00 Completed [facility] Meningococcal B, OMV 2018-10-18 00:00:00 Completed [facility] Meningococcal Polysaccharide (groups A, C, Y and W-135) conjugate vaccine (MCV4P) 2018-10-18 00:00:00 Completed [facility] Meningococcal Vaccine 2018-10-18 00:00:00 Completed [facility] TDAP 2018-10-18 00:00:00 Completed [facility] Meningococcal B, OMV 2018-10-18 00:00:00 Completed [facility] Meningococcal Polysaccharide (groups A, C, Y and W-135) conjugate vaccine (MCV4P) 2018-10-18 00:00:00 Completed [facility] Meningococcal Vaccine 2018-10-18 00:00:00 Completed [facility] TDAP 2018-10-18 00:00:00 Completed [facility] Meningococcal B, OMV 2018-10-18 00:00:00 Completed [facility] Meningococcal Polysaccharide (groups A, C, Y and W-135) conjugate vaccine (MCV4P) 2018-10-18 00:00:00 Completed [facility] Meningococcal Vaccine 2018-10-18 00:00:00 Completed [facility] TDAP 2018-10-18 00:00:00 Completed [facility] Meningococcal B, OMV 2018-10-18 00:00:00 Completed [facility] Meningococcal Polysaccharide (groups A, C, Y and W-135) conjugate vaccine (MCV4P) 2018-10-18 00:00:00 Completed [facility] Meningococcal Vaccine 2018-10-18 00:00:00 Completed [facility] TDAP 2018-10-18 00:00:00 Completed [facility] Meningococcal B, OMV 2018-10-18 00:00:00 Completed [facility] Meningococcal Polysaccharide (groups A, C, Y and W-135) conjugate vaccine (MCV4P) 2018-10-18 00:00:00 Completed [facility] Meningococcal Vaccine 2018-10-18 00:00:00 Completed [facility] TDAP 2018-10-18 00:00:00 Completed [facility] Meningococcal B, OMV 2018-10-18 00:00:00 Completed [facility] Meningococcal Polysaccharide (groups A, C, Y and W-135) conjugate vaccine (MCV4P) 2018-10-18 00:00:00 Completed [facility] Meningococcal Vaccine 2018-10-18 00:00:00 Completed [facility] TDAP 2018-10-18 00:00:00 Completed [facility] Meningococcal B, OMV 2018-10-18 00:00:00 Completed [facility] Meningococcal Polysaccharide (groups A, C, Y and W-135) conjugate vaccine (MCV4P) 2018-10-18 00:00:00 Completed [facility] Meningococcal Vaccine 2018-10-18 00:00:00 Completed [facility] TDAP 2018-10-18 00:00:00 Completed [facility] Meningococcal B, OMV 2018-10-18 00:00:00 Completed [facility] Meningococcal Polysaccharide (groups A, C, Y and W-135) conjugate vaccine (MCV4P) 2018-10-18 00:00:00 Completed [facility] Meningococcal Vaccine 2018-10-18 00:00:00 Completed [facility] TDAP 2018-10-18 00:00:00 Completed [facility] Meningococcal B, OMV 2018-10-18 00:00:00 Completed [facility] Meningococcal Polysaccharide (groups A, C, Y and W-135) conjugate vaccine (MCV4P) 2018-10-18 00:00:00 Completed [facility] Meningococcal Vaccine 2018-10-18 00:00:00 Completed [facility] TDAP 2018-10-18 00:00:00 Completed [facility] Meningococcal B, OMV 2018-10-18 00:00:00 Completed [facility] Meningococcal Polysaccharide (groups A, C, Y and W-135) conjugate vaccine (MCV4P) 2018-10-18 00:00:00 Completed [facility] Meningococcal Vaccine 2018-10-18 00:00:00 Completed [facility] TDAP 2018-10-18 00:00:00 Completed [facility] Meningococcal B, OMV 2018-10-18 00:00:00 Completed [facility] Meningococcal Polysaccharide (groups A, C, Y and W-135) conjugate vaccine (MCV4P) 2018-10-18 00:00:00 Completed [facility] Meningococcal Vaccine 2018-10-18 00:00:00 Completed [facility] TDAP 2018-10-18 00:00:00 Completed [facility] Meningococcal B, OMV 2018-10-18 00:00:00 Completed [facility] Meningococcal Polysaccharide (groups A, C, Y and W-135) conjugate vaccine (MCV4P) 2018-10-18 00:00:00 Completed [facility] Meningococcal Vaccine 2018-10-18 00:00:00 Completed [facility] TDAP 2018-10-18 00:00:00 Completed [facility] Meningococcal B, OMV 2018-10-18 00:00:00 Completed [facility] Meningococcal Polysaccharide (groups A, C, Y and W-135) conjugate vaccine (MCV4P) 2018-10-18 00:00:00 Completed [facility] Meningococcal Vaccine 2018-10-18 00:00:00 Completed [facility] TDAP 2018-10-18 00:00:00 Completed [facility] Meningococcal B, OMV 2018-10-18 00:00:00 Completed [facility] Meningococcal Polysaccharide (groups A, C, Y and W-135) conjugate vaccine (MCV4P) 2018-10-18 00:00:00 Completed [facility] Meningococcal Vaccine 2018-10-18 00:00:00 Completed [facility] TDAP 2018-10-18 00:00:00 Completed [facility] Meningococcal B, OMV 2018-10-18 00:00:00 Completed [facility] Meningococcal Polysaccharide (groups A, C, Y and W-135) conjugate vaccine (MCV4P) 2018-10-18 00:00:00 Completed [facility] Meningococcal Vaccine 2018-10-18 00:00:00 Completed [facility] TDAP 2018-10-18 00:00:00 Completed [facility] Meningococcal B, OMV 2018-10-18 00:00:00 Completed [facility] Meningococcal Polysaccharide (groups A, C, Y and W-135) conjugate vaccine (MCV4P) 2018-10-18 00:00:00 Completed [facility] Meningococcal Vaccine 2018-10-18 00:00:00 Completed [facility] TDAP 2018-10-18 00:00:00 Completed [facility] Meningococcal B, OMV 2018-10-18 00:00:00 Completed [facility] Meningococcal Polysaccharide (groups A, C, Y and W-135) conjugate vaccine (MCV4P) 2018-10-18 00:00:00 Completed [facility] Meningococcal Vaccine 2018-10-18 00:00:00 Completed [facility] TDAP 2018-10-18 00:00:00 Completed [facility] Meningococcal B, OMV 2018-10-18 00:00:00 Completed [facility] Meningococcal Polysaccharide (groups A, C, Y and W-135) conjugate vaccine (MCV4P) 2018-10-18 00:00:00 Completed [facility] Meningococcal Vaccine 2018-10-18 00:00:00 Completed [facility] TDAP 2018-10-18 00:00:00 Completed [facility] Meningococcal B, OMV 2018-10-18 00:00:00 Completed [facility] Meningococcal Polysaccharide (groups A, C, Y and W-135) conjugate vaccine (MCV4P) 2018-10-18 00:00:00 Completed [facility] Meningococcal Vaccine 2018-10-18 00:00:00 Completed [facility] TDAP 2018-10-18 00:00:00 Completed [facility] Meningococcal B, OMV 2018-10-18 00:00:00 [facility] [facility] Meningococcal Polysaccharide (groups A, C, Y and W-135) conjugate vaccine (MCV4P) 2018-10-18 00:00:00 Completed [facility] DTAP 2006-10-25 00:00:00 Completed [facility] Hepatitis A Adult 2006-10-25 00:00:00 Completed [facility] Polio (IPV/OPV) 2006-10-25 00:00:00 Completed [facility] DTAP 2006-10-25 00:00:00 Completed [facility] Hepatitis A Adult 2006-10-25 00:00:00 Completed [facility] Polio (IPV/OPV) 2006-10-25 00:00:00 Completed [facility] DTAP 2006-10-25 00:00:00 Completed [facility] Hepatitis A Adult 2006-10-25 00:00:00 Completed [facility] Polio (IPV/OPV) 2006-10-25 00:00:00 Completed [facility] DTAP 2006-10-25 00:00:00 Completed [facility] Hepatitis A Adult 2006-10-25 00:00:00 Completed [facility] Polio (IPV/OPV) 2006-10-25 00:00:00 Completed [facility] DTAP 2006-10-25 00:00:00 Completed [facility] Hepatitis A Adult 2006-10-25 00:00:00 Completed [facility] Polio (IPV/OPV) 2006-10-25 00:00:00 Completed [facility] DTAP 2006-10-25 00:00:00 Completed [facility] Hepatitis A Adult 2006-10-25 00:00:00 Completed [facility] Polio (IPV/OPV) 2006-10-25 00:00:00 Completed [facility] DTAP 2006-10-25 00:00:00 Completed [facility] Hepatitis A Adult 2006-10-25 00:00:00 Completed [facility] Polio (IPV/OPV) 2006-10-25 00:00:00 Completed [facility] DTAP 2006-10-25 00:00:00 Completed [facility] Hepatitis A Adult 2006-10-25 00:00:00 Completed [facility] Polio (IPV/OPV) 2006-10-25 00:00:00 Completed [facility] DTAP 2006-10-25 00:00:00 Completed [facility] Hepatitis A Adult 2006-10-25 00:00:00 Completed [facility] Polio (IPV/OPV) 2006-10-25 00:00:00 Completed [facility] DTAP 2006-10-25 00:00:00 Completed [facility] Hepatitis A Adult 2006-10-25 00:00:00 Completed [facility] Polio (IPV/OPV) 2006-10-25 00:00:00 Completed [facility] DTAP 2006-10-25 00:00:00 Completed [facility] Hepatitis A Adult 2006-10-25 00:00:00 Completed [facility] Polio (IPV/OPV) 2006-10-25 00:00:00 Completed [facility] DTAP 2006-10-25 00:00:00 Completed [facility] Hepatitis A Adult 2006-10-25 00:00:00 Completed [facility] Polio (IPV/OPV) 2006-10-25 00:00:00 Completed [facility] DTAP 2006-10-25 00:00:00 Completed [facility] Hepatitis A Adult 2006-10-25 00:00:00 Completed [facility] Polio (IPV/OPV) 2006-10-25 00:00:00 Completed [facility] DTAP 2006-10-25 00:00:00 Completed [facility] Hepatitis A Adult 2006-10-25 00:00:00 Completed [facility] Polio (IPV/OPV) 2006-10-25 00:00:00 Completed [facility] DTAP 2006-10-25 00:00:00 Completed [facility] Hepatitis A Adult 2006-10-25 00:00:00 Completed [facility] Polio (IPV/OPV) 2006-10-25 00:00:00 Completed [facility] DTAP 2006-10-25 00:00:00 Completed [facility] Hepatitis A Adult 2006-10-25 00:00:00 Completed [facility] Polio (IPV/OPV) 2006-10-25 00:00:00 Completed [facility] DTAP 2006-10-25 00:00:00 Completed [facility] Hepatitis A Adult 2006-10-25 00:00:00 Completed [facility] Polio (IPV/OPV) 2006-10-25 00:00:00 Completed [facility] DTAP 2006-10-25 00:00:00 Completed [facility] Hepatitis A Adult 2006-10-25 00:00:00 Completed [facility] Polio (IPV/OPV) 2006-10-25 00:00:00 Completed [facility] DTAP 2006-10-25 00:00:00 Completed [facility] Hepatitis A Adult 2006-10-25 00:00:00 Completed [facility] Polio (IPV/OPV) 2006-10-25 00:00:00 Completed [facility] DTAP 2006-10-25 00:00:00 Completed [facility] Hepatitis A Adult 2006-10-25 00:00:00 Completed [facility] Polio (IPV/OPV) 2006-10-25 00:00:00 Completed [facility] DTAP 2006-10-25 00:00:00 Completed [facility] Hepatitis A Adult 2006-10-25 00:00:00 Completed [facility] Polio (IPV/OPV) 2006-10-25 00:00:00 Completed [facility] DTAP 2006-10-25 00:00:00 Completed [facility] Hepatitis A Adult 2006-10-25 00:00:00 Completed [facility] Polio (IPV/OPV) 2006-10-25 00:00:00 Completed [facility] DTAP 2006-10-25 00:00:00 Completed [facility] Hepatitis A Adult 2006-10-25 00:00:00 Completed [facility] Polio (IPV/OPV) 2006-10-25 00:00:00 Completed [facility] DTAP 2006-10-25 00:00:00 Completed [facility] Hepatitis A Adult 2006-10-25 00:00:00 Completed [facility] Polio (IPV/OPV) 2006-10-25 00:00:00 Completed [facility] DTAP 2006-10-25 00:00:00 Completed [facility] Hepatitis A Adult 2006-10-25 00:00:00 Completed [facility] Polio (IPV/OPV) 2006-10-25 00:00:00 Completed [facility] DTAP 2006-10-25 00:00:00 Completed [facility] Hepatitis A Adult 2006-10-25 00:00:00 Completed [facility] Polio (IPV/OPV) 2006-10-25 00:00:00 Completed [facility] DTAP 2006-10-25 00:00:00 Completed [facility] Hepatitis A Adult 2006-10-25 00:00:00 Completed [facility] Polio (IPV/OPV) 2006-10-25 00:00:00 Completed [facility] DTAP 2006-10-25 00:00:00 Completed [facility] Hepatitis A Adult 2006-10-25 00:00:00 Completed [facility] Polio (IPV/OPV) 2006-10-25 00:00:00 Completed [facility] DTAP 2006-10-25 00:00:00 Completed [facility] Hepatitis A Adult 2006-10-25 00:00:00 Completed [facility] Polio (IPV/OPV) 2006-10-25 00:00:00 Completed [facility] DTAP 2006-10-25 00:00:00 Completed [facility] Hepatitis A Adult 2006-10-25 00:00:00 Completed [facility] Polio (IPV/OPV) 2006-10-25 00:00:00 Completed [facility] DTaP, Unspecified Formulation 2006-10-25 00:00:00 Completed [facility] HEPA,NOS 2006-10-25 00:00:00 Completed [facility] IPV 2006-10-25 00:00:00 Completed [facility] DTAP 2006-10-25 00:00:00 Completed [facility] Hepatitis A Adult 2006-10-25 00:00:00 Completed [facility] Polio (IPV/OPV) 2006-10-25 00:00:00 Completed [facility] DTaP, Unspecified Formulation 2006-10-25 00:00:00 Completed [facility] HEPA,NOS 2006-10-25 00:00:00 Completed [facility] IPV 2006-10-25 00:00:00 Completed [facility] DTAP 2006-10-25 00:00:00 Completed [facility] Hepatitis A Adult 2006-10-25 00:00:00 Completed [facility] Polio (IPV/OPV) 2006-10-25 00:00:00 Completed [facility] DTaP, Unspecified Formulation 2006-10-25 00:00:00 Completed [facility] HEPA,NOS 2006-10-25 00:00:00 Completed [facility] IPV 2006-10-25 00:00:00 Completed [facility] DTAP 2006-10-25 00:00:00 Completed [facility] Hepatitis A Adult 2006-10-25 00:00:00 Completed [facility] Polio (IPV/OPV) 2006-10-25 00:00:00 Completed [facility] DTaP, Unspecified Formulation 2006-10-25 00:00:00 Completed [facility] HEPA,NOS 2006-10-25 00:00:00 Completed [facility] IPV 2006-10-25 00:00:00 Completed [facility] DTAP 2006-10-25 00:00:00 Completed [facility] Hepatitis A Adult 2006-10-25 00:00:00 Completed [facility] Polio (IPV/OPV) 2006-10-25 00:00:00 Completed [facility] DTaP, Unspecified Formulation 2006-10-25 00:00:00 Completed [facility] HEPA,NOS 2006-10-25 00:00:00 Completed [facility] IPV 2006-10-25 00:00:00 Completed [facility] DTAP 2006-10-25 00:00:00 Completed [facility] Hepatitis A Adult 2006-10-25 00:00:00 Completed [facility] Polio (IPV/OPV) 2006-10-25 00:00:00 Completed [facility] DTaP, Unspecified Formulation 2006-10-25 00:00:00 Completed [facility] HEPA,NOS 2006-10-25 00:00:00 Completed [facility] IPV 2006-10-25 00:00:00 Completed [facility] DTAP 2006-10-25 00:00:00 Completed [facility] Hepatitis A Adult 2006-10-25 00:00:00 Completed [facility] Polio (IPV/OPV) 2006-10-25 00:00:00 Completed [facility] DTaP, Unspecified Formulation 2006-10-25 00:00:00 Completed [facility] HEPA,NOS 2006-10-25 00:00:00 Completed [facility] IPV 2006-10-25 00:00:00 Completed [facility] DTAP 2006-10-25 00:00:00 Completed [facility] Hepatitis A Adult 2006-10-25 00:00:00 Completed [facility] Polio (IPV/OPV) 2006-10-25 00:00:00 Completed [facility] DTaP, Unspecified Formulation 2006-10-25 00:00:00 Completed [facility] HEPA,NOS 2006-10-25 00:00:00 Completed [facility] IPV 2006-10-25 00:00:00 Completed [facility] DTAP 2006-10-25 00:00:00 Completed [facility] Hepatitis A Adult 2006-10-25 00:00:00 Completed [facility] Polio (IPV/OPV) 2006-10-25 00:00:00 Completed [facility] DTaP, Unspecified Formulation 2006-10-25 00:00:00 Completed [facility] HEPA,NOS 2006-10-25 00:00:00 Completed [facility] IPV 2006-10-25 00:00:00 Completed [facility] DTAP 2006-10-25 00:00:00 Completed [facility] Hepatitis A Adult 2006-10-25 00:00:00 Completed [facility] Polio (IPV/OPV) 2006-10-25 00:00:00 Completed [facility] DTaP, Unspecified Formulation 2006-10-25 00:00:00 Completed [facility] HEPA,NOS 2006-10-25 00:00:00 Completed [facility] IPV 2006-10-25 00:00:00 Completed [facility] DTAP 2006-10-25 00:00:00 Completed [facility] Hepatitis A Adult 2006-10-25 00:00:00 Completed [facility] Polio (IPV/OPV) 2006-10-25 00:00:00 Completed [facility] DTaP, Unspecified Formulation 2006-10-25 00:00:00 Completed [facility] HEPA,NOS 2006-10-25 00:00:00 Completed [facility] IPV 2006-10-25 00:00:00 Completed [facility] DTAP 2006-10-25 00:00:00 Completed [facility] Hepatitis A Adult 2006-10-25 00:00:00 Completed [facility] Polio (IPV/OPV) 2006-10-25 00:00:00 Completed [facility] DTaP, Unspecified Formulation 2006-10-25 00:00:00 Completed [facility] HEPA,NOS 2006-10-25 00:00:00 Completed [facility] IPV 2006-10-25 00:00:00 Completed [facility] DTAP 2006-10-25 00:00:00 Completed [facility] Hepatitis A Adult 2006-10-25 00:00:00 Completed [facility] Polio (IPV/OPV) 2006-10-25 00:00:00 Completed [facility] DTaP, Unspecified Formulation 2006-10-25 00:00:00 Completed [facility] HEPA,NOS 2006-10-25 00:00:00 Completed [facility] IPV 2006-10-25 00:00:00 Completed [facility] DTAP 2006-10-25 00:00:00 Completed [facility] Hepatitis A Adult 2006-10-25 00:00:00 Completed [facility] Polio (IPV/OPV) 2006-10-25 00:00:00 Completed [facility] DTaP, Unspecified Formulation 2006-10-25 00:00:00 Completed [facility] HEPA,NOS 2006-10-25 00:00:00 Completed [facility] IPV 2006-10-25 00:00:00 Completed [facility] DTAP 2006-10-25 00:00:00 Completed [facility] Hepatitis A Adult 2006-10-25 00:00:00 Completed [facility] Polio (IPV/OPV) 2006-10-25 00:00:00 Completed [facility] DTaP, Unspecified Formulation 2006-10-25 00:00:00 Completed [facility] HEPA,NOS 2006-10-25 00:00:00 Completed [facility] IPV 2006-10-25 00:00:00 Completed [facility] DTAP 2006-10-25 00:00:00 Completed [facility] Hepatitis A Adult 2006-10-25 00:00:00 Completed [facility] Polio (IPV/OPV) 2006-10-25 00:00:00 Completed [facility] DTaP, Unspecified Formulation 2006-10-25 00:00:00 Completed [facility] HEPA,NOS 2006-10-25 00:00:00 Completed [facility] IPV 2006-10-25 00:00:00 Completed [facility] DTAP 2006-10-25 00:00:00 Completed [facility] Hepatitis A Adult 2006-10-25 00:00:00 Completed [facility] Polio (IPV/OPV) 2006-10-25 00:00:00 Completed [facility] DTaP, Unspecified Formulation 2006-10-25 00:00:00 Completed [facility] HEPA,NOS 2006-10-25 00:00:00 Completed [facility] IPV 2006-10-25 00:00:00 Completed [facility] DTAP 2006-10-25 00:00:00 Completed [facility] Hepatitis A Adult 2006-10-25 00:00:00 Completed [facility] Polio (IPV/OPV) 2006-10-25 00:00:00 Completed [facility] DTaP, Unspecified Formulation 2006-10-25 00:00:00 Completed [facility] HEPA,NOS 2006-10-25 00:00:00 Completed [facility] IPV 2006-10-25 00:00:00 Completed [facility] DTAP 2006-10-25 00:00:00 Completed [facility] Hepatitis A Adult 2006-10-25 00:00:00 Completed [facility] Polio (IPV/OPV) 2006-10-25 00:00:00 Completed [facility] DTaP, Unspecified Formulation 2006-10-25 00:00:00 Completed [facility] HEPA,NOS 2006-10-25 00:00:00 Completed [facility] IPV 2006-10-25 00:00:00 Completed [facility] DTAP 2006-10-25 00:00:00 Completed [facility] Hepatitis A Adult 2006-10-25 00:00:00 Completed [facility] Polio (IPV/OPV) 2006-10-25 00:00:00 Completed [facility] DTaP, Unspecified Formulation 2006-10-25 00:00:00 Completed [facility] HEPA,NOS 2006-10-25 00:00:00 Completed [facility] IPV 2006-10-25 00:00:00 Completed [facility] DTAP 2006-10-25 00:00:00 Completed [facility] Hepatitis A Adult 2006-10-25 00:00:00 Completed [facility] Polio (IPV/OPV) 2006-10-25 00:00:00 Completed [facility] DTaP, Unspecified Formulation 2006-10-25 00:00:00 Completed [facility] HEPA,NOS 2006-10-25 00:00:00 Completed [facility] IPV 2006-10-25 00:00:00 Completed [facility] DTAP 2006-10-25 00:00:00 Completed [facility] Hepatitis A Adult 2006-10-25 00:00:00 Completed [facility] Polio (IPV/OPV) 2006-10-25 00:00:00 Completed [facility] DTaP, Unspecified Formulation 2006-10-25 00:00:00 Completed [facility] HEPA,NOS 2006-10-25 00:00:00 Completed [facility] IPV 2006-10-25 00:00:00 Completed [facility] DTAP 2005-09-20 00:00:00 Completed [facility] HIB 3 Dose Schedule 2005-09-20 00:00:00 Completed [facility] Hepatitis A Adult 2005-09-20 00:00:00 Completed [facility] Hep B, Adol or Pedi Dosage 2005-09-20 00:00:00 Completed [facility] Pneumococcal 13 Conjugate, PCV13 (Prevnar 13) 2005-09-20 00:00:00 Completed [facility] Polio (IPV/OPV) 2005-09-20 00:00:00 Completed [facility] DTAP 2005-09-20 00:00:00 Completed [facility] HIB 3 Dose Schedule 2005-09-20 00:00:00 Completed [facility] Hepatitis A Adult 2005-09-20 00:00:00 Completed [facility] Hep B, Adol or Pedi Dosage 2005-09-20 00:00:00 Completed [facility] Pneumococcal 13 Conjugate, PCV13 (Prevnar 13) 2005-09-20 00:00:00 Completed [facility] Polio (IPV/OPV) 2005-09-20 00:00:00 Completed [facility] DTAP 2005-09-20 00:00:00 Completed [facility] HIB 3 Dose Schedule 2005-09-20 00:00:00 Completed [facility] Hepatitis A Adult 2005-09-20 00:00:00 Completed [facility] Hep B, Adol or Pedi Dosage 2005-09-20 00:00:00 Completed [facility] Pneumococcal 13 Conjugate, PCV13 (Prevnar 13) 2005-09-20 00:00:00 Completed [facility] Polio (IPV/OPV) 2005-09-20 00:00:00 Completed [facility] DTAP 2005-09-20 00:00:00 Completed [facility] HIB 3 Dose Schedule 2005-09-20 00:00:00 Completed [facility] Hepatitis A Adult 2005-09-20 00:00:00 Completed [facility] Hep B, Adol or Pedi Dosage 2005-09-20 00:00:00 Completed [facility] Pneumococcal 13 Conjugate, PCV13 (Prevnar 13) 2005-09-20 00:00:00 Completed [facility] Polio (IPV/OPV) 2005-09-20 00:00:00 Completed [facility] DTAP 2005-09-20 00:00:00 Completed [facility] HIB 3 Dose Schedule 2005-09-20 00:00:00 Completed [facility] Hepatitis A Adult 2005-09-20 00:00:00 Completed [facility] Hep B, Adol or Pedi Dosage 2005-09-20 00:00:00 Completed [facility] Pneumococcal 13 Conjugate, PCV13 (Prevnar 13) 2005-09-20 00:00:00 Completed [facility] Polio (IPV/OPV) 2005-09-20 00:00:00 Completed [facility] DTAP 2005-09-20 00:00:00 Completed [facility] HIB 3 Dose Schedule 2005-09-20 00:00:00 Completed [facility] Hepatitis A Adult 2005-09-20 00:00:00 Completed [facility] Hep B, Adol or Pedi Dosage 2005-09-20 00:00:00 Completed [facility] Pneumococcal 13 Conjugate, PCV13 (Prevnar 13) 2005-09-20 00:00:00 Completed [facility] Polio (IPV/OPV) 2005-09-20 00:00:00 Completed [facility] DTAP 2005-09-20 00:00:00 Completed [facility] HIB 3 Dose Schedule 2005-09-20 00:00:00 Completed [facility] Hepatitis A Adult 2005-09-20 00:00:00 Completed [facility] Hep B, Adol or Pedi Dosage 2005-09-20 00:00:00 Completed [facility] Pneumococcal 13 Conjugate, PCV13 (Prevnar 13) 2005-09-20 00:00:00 Completed [facility] Polio (IPV/OPV) 2005-09-20 00:00:00 Completed [facility] DTAP 2005-09-20 00:00:00 Completed [facility] HIB 3 Dose Schedule 2005-09-20 00:00:00 Completed [facility] Hepatitis A Adult 2005-09-20 00:00:00 Completed [facility] Hep B, Adol or Pedi Dosage 2005-09-20 00:00:00 Completed [facility] Pneumococcal 13 Conjugate, PCV13 (Prevnar 13) 2005-09-20 00:00:00 Completed [facility] Polio (IPV/OPV) 2005-09-20 00:00:00 Completed [facility] DTAP 2005-09-20 00:00:00 Completed [facility] HIB 3 Dose Schedule 2005-09-20 00:00:00 Completed [facility] Hepatitis A Adult 2005-09-20 00:00:00 Completed [facility] Hep B, Adol or Pedi Dosage 2005-09-20 00:00:00 Completed [facility] Pneumococcal 13 Conjugate, PCV13 (Prevnar 13) 2005-09-20 00:00:00 Completed [facility] Polio (IPV/OPV) 2005-09-20 00:00:00 Completed [facility] DTAP 2005-09-20 00:00:00 Completed [facility] HIB 3 Dose Schedule 2005-09-20 00:00:00 Completed [facility] Hepatitis A Adult 2005-09-20 00:00:00 Completed [facility] Hep B, Adol or Pedi Dosage 2005-09-20 00:00:00 Completed [facility] Pneumococcal 13 Conjugate, PCV13 (Prevnar 13) 2005-09-20 00:00:00 Completed [facility] Polio (IPV/OPV) 2005-09-20 00:00:00 Completed [facility] DTAP 2005-09-20 00:00:00 Completed [facility] HIB 3 Dose Schedule 2005-09-20 00:00:00 Completed [facility] Hepatitis A Adult 2005-09-20 00:00:00 Completed [facility] Hep B, Adol or Pedi Dosage 2005-09-20 00:00:00 Completed [facility] Pneumococcal 13 Conjugate, PCV13 (Prevnar 13) 2005-09-20 00:00:00 Completed [facility] Polio (IPV/OPV) 2005-09-20 00:00:00 Completed [facility] DTAP 2005-09-20 00:00:00 [facility] [facility] Dose Schedule 2005-09-20 00:00:00 Completed [facility] Hepatitis A Adult 2005-09-20 00:00:00 Completed [facility] Hep B, Adol or Pedi Dosage 2005-09-20 00:00:00 Completed [facility] Pneumococcal 13 Conjugate, PCV13 (Prevnar 13) 2005-09-20 00:00:00 Completed [facility] Polio (IPV/OPV) 2005-09-20 00:00:00 Completed [facility] DTAP 2005-09-20 00:00:00 Completed [facility] HIB 3 Dose Schedule 2005-09-20 00:00:00 Completed [facility] Hepatitis A Adult 2005-09-20 00:00:00 Completed [facility] Hep B, Adol or Pedi Dosage 2005-09-20 00:00:00 Completed [facility] Pneumococcal 13 Conjugate, PCV13 (Prevnar 13) 2005-09-20 00:00:00 Completed [facility] Polio (IPV/OPV) 2005-09-20 00:00:00 Completed [facility] DTAP 2005-09-20 00:00:00 Completed [facility] HIB 3 Dose Schedule 2005-09-20 00:00:00 Completed [facility] Hepatitis A Adult 2005-09-20 00:00:00 Completed [facility] Hep B, Adol or Pedi Dosage 2005-09-20 00:00:00 Completed [facility] Pneumococcal 13 Conjugate, PCV13 (Prevnar 13) 2005-09-20 00:00:00 Completed [facility] Polio (IPV/OPV) 2005-09-20 00:00:00 Completed [facility] DTAP 2005-09-20 00:00:00 Completed [facility] HIB 3 Dose Schedule 2005-09-20 00:00:00 Completed [facility] Hepatitis A Adult 2005-09-20 00:00:00 Completed [facility] Hep B, Adol or Pedi Dosage 2005-09-20 00:00:00 Completed [facility] Pneumococcal 13 Conjugate, PCV13 (Prevnar 13) 2005-09-20 00:00:00 Completed [facility] Polio (IPV/OPV) 2005-09-20 00:00:00 Completed [facility] DTAP 2005-09-20 00:00:00 Completed [facility] HIB 3 Dose Schedule 2005-09-20 00:00:00 Completed [facility] Hepatitis A Adult 2005-09-20 00:00:00 Completed [facility] Hep B, Adol or Pedi Dosage 2005-09-20 00:00:00 Completed [facility] Pneumococcal 13 Conjugate, PCV13 (Prevnar 13) 2005-09-20 00:00:00 Completed [facility] Polio (IPV/OPV) 2005-09-20 00:00:00 Completed [facility] DTAP 2005-09-20 00:00:00 Completed [facility] HIB 3 Dose Schedule 2005-09-20 00:00:00 Completed [facility] Hepatitis A Adult 2005-09-20 00:00:00 Completed [facility] Hep B, Adol or Pedi Dosage 2005-09-20 00:00:00 Completed [facility] Pneumococcal 13 Conjugate, PCV13 (Prevnar 13) 2005-09-20 00:00:00 Completed [facility] Polio (IPV/OPV) 2005-09-20 00:00:00 Completed [facility] DTAP 2005-09-20 00:00:00 Completed [facility] HIB 3 Dose Schedule 2005-09-20 00:00:00 Completed [facility] Hepatitis A Adult 2005-09-20 00:00:00 Completed [facility] Hep B, Adol or Pedi Dosage 2005-09-20 00:00:00 Completed [facility] Pneumococcal 13 Conjugate, PCV13 (Prevnar 13) 2005-09-20 00:00:00 Completed [facility] Polio (IPV/OPV) 2005-09-20 00:00:00 Completed [facility] DTAP 2005-09-20 00:00:00 Completed [facility] HIB 3 Dose Schedule 2005-09-20 00:00:00 Completed [facility] Hepatitis A Adult 2005-09-20 00:00:00 Completed [facility] Hep B, Adol or Pedi Dosage 2005-09-20 00:00:00 Completed [facility] Pneumococcal 13 Conjugate, PCV13 (Prevnar 13) 2005-09-20 00:00:00 Completed [facility] Polio (IPV/OPV) 2005-09-20 00:00:00 Completed [facility] DTAP 2005-09-20 00:00:00 Completed [facility] HIB 3 Dose Schedule 2005-09-20 00:00:00 Completed [facility] Hepatitis A Adult 2005-09-20 00:00:00 Completed [facility] Hep B, Adol or Pedi Dosage 2005-09-20 00:00:00 Completed [facility] Pneumococcal 13 Conjugate, PCV13 (Prevnar 13) 2005-09-20 00:00:00 Completed [facility] Polio (IPV/OPV) 2005-09-20 00:00:00 Completed [facility] DTAP 2005-09-20 00:00:00 Completed [facility] HIB 3 Dose Schedule 2005-09-20 00:00:00 Completed [facility] Hepatitis A Adult 2005-09-20 00:00:00 Completed [facility] Hep B, Adol or Pedi Dosage 2005-09-20 00:00:00 Completed [facility] Pneumococcal 13 Conjugate, PCV13 (Prevnar 13) 2005-09-20 00:00:00 Completed [facility] Polio (IPV/OPV) 2005-09-20 00:00:00 Completed [facility] DTAP 2005-09-20 00:00:00 Completed [facility] HIB 3 Dose Schedule 2005-09-20 00:00:00 Completed [facility] Hepatitis A Adult 2005-09-20 00:00:00 Completed [facility] Hep B, Adol or Pedi Dosage 2005-09-20 00:00:00 Completed [facility] Pneumococcal 13 Conjugate, PCV13 (Prevnar 13) 2005-09-20 00:00:00 Completed [facility] Polio (IPV/OPV) 2005-09-20 00:00:00 Completed [facility] DTAP 2005-09-20 00:00:00 Completed [facility] HIB 3 Dose Schedule 2005-09-20 00:00:00 Completed [facility] Hepatitis A Adult 2005-09-20 00:00:00 Completed [facility] Hep B, Adol or Pedi Dosage 2005-09-20 00:00:00 Completed [facility] Pneumococcal 13 Conjugate, PCV13 (Prevnar 13) 2005-09-20 00:00:00 Completed [facility] Polio (IPV/OPV) 2005-09-20 00:00:00 Completed [facility] DTAP 2005-09-20 00:00:00 Completed [facility] HIB 3 Dose Schedule 2005-09-20 00:00:00 Completed [facility] Hepatitis A Adult 2005-09-20 00:00:00 Completed [facility] Hep B, Adol or Pedi Dosage 2005-09-20 00:00:00 Completed [facility] Pneumococcal 13 Conjugate, PCV13 (Prevnar 13) 2005-09-20 00:00:00 Completed [facility] Polio (IPV/OPV) 2005-09-20 00:00:00 Completed [facility] DTAP 2005-09-20 00:00:00 Completed [facility] HIB 3 Dose Schedule 2005-09-20 00:00:00 Completed [facility] Hepatitis A Adult 2005-09-20 00:00:00 Completed [facility] Hep B, Adol or Pedi Dosage 2005-09-20 00:00:00 Completed [facility] Pneumococcal 13 Conjugate, PCV13 (Prevnar 13) 2005-09-20 00:00:00 Completed [facility] Polio (IPV/OPV) 2005-09-20 00:00:00 Completed [facility] DTAP 2005-09-20 00:00:00 Completed [facility] HIB 3 Dose Schedule 2005-09-20 00:00:00 Completed [facility] Hepatitis A Adult 2005-09-20 00:00:00 Completed [facility] Hep B, Adol or Pedi Dosage 2005-09-20 00:00:00 Completed [facility] Pneumococcal 13 Conjugate, PCV13 (Prevnar 13) 2005-09-20 00:00:00 Completed [facility] Polio (IPV/OPV) 2005-09-20 00:00:00 Completed [facility] DTAP 2005-09-20 00:00:00 Completed [facility] HIB 3 Dose Schedule 2005-09-20 00:00:00 Completed [facility] Hepatitis A Adult 2005-09-20 00:00:00 Completed [facility] Hep B, Adol or Pedi Dosage 2005-09-20 00:00:00 Completed [facility] Pneumococcal 13 Conjugate, PCV13 (Prevnar 13) 2005-09-20 00:00:00 Completed [facility] Polio (IPV/OPV) 2005-09-20 00:00:00 Completed [facility] DTAP 2005-09-20 00:00:00 Completed [facility] HIB 3 Dose Schedule 2005-09-20 00:00:00 Completed [facility] Hepatitis A Adult 2005-09-20 00:00:00 Completed [facility] Hep B, Adol or Pedi Dosage 2005-09-20 00:00:00 Completed [facility] Pneumococcal 13 Conjugate, PCV13 (Prevnar 13) 2005-09-20 00:00:00 Completed [facility] Polio (IPV/OPV) 2005-09-20 00:00:00 Completed [facility] DTAP 2005-09-20 00:00:00 Completed [facility] HIB 3 Dose Schedule 2005-09-20 00:00:00 Completed [facility] Hepatitis A Adult 2005-09-20 00:00:00 Completed [facility] Hep B, Adol or Pedi Dosage 2005-09-20 00:00:00 Completed [facility] Pneumococcal 13 Conjugate, PCV13 (Prevnar 13) 2005-09-20 00:00:00 Completed [facility] Polio (IPV/OPV) 2005-09-20 00:00:00 Completed [facility] DTAP 2005-09-20 00:00:00 Completed [facility] HIB 3 Dose Schedule 2005-09-20 00:00:00 Completed [facility] Hepatitis A Adult 2005-09-20 00:00:00 Completed [facility] Hep B, Adol or Pedi Dosage 2005-09-20 00:00:00 Completed [facility] Pneumococcal 13 Conjugate, PCV13 (Prevnar 13) 2005-09-20 00:00:00 Completed [facility] Polio (IPV/OPV) 2005-09-20 00:00:00 Completed [facility] DTaP, Unspecified Formulation 2005-09-20 00:00:00 Completed [facility] HEPATITIS A 2005-09-20 00:00:00 Completed [facility] HIB 4 Dose Schedule 2005-09-20 00:00:00 Completed [facility] Pneumococcal 7 Conjugate, PCV7 (Prevnar7) 2005-09-20 00:00:00 Completed [facility] IPV 2005-09-20 00:00:00 Completed [facility] DTAP 2005-09-20 00:00:00 Completed [facility] HIB 3 Dose Schedule 2005-09-20 00:00:00 Completed [facility] Hepatitis A Adult 2005-09-20 00:00:00 Completed [facility] Hep B, Adol or Pedi Dosage 2005-09-20 00:00:00 Completed [facility] Pneumococcal 13 Conjugate, PCV13 (Prevnar 13) 2005-09-20 00:00:00 Completed [facility] Polio (IPV/OPV) 2005-09-20 00:00:00 Completed [facility] DTaP, Unspecified Formulation 2005-09-20 00:00:00 Completed [facility] HEPATITIS A 2005-09-20 00:00:00 Completed [facility] HIB 4 Dose Schedule 2005-09-20 00:00:00 Completed [facility] Pneumococcal 7 Conjugate, PCV7 (Prevnar7) 2005-09-20 00:00:00 Completed [facility] IPV 2005-09-20 00:00:00 Completed [facility] DTAP 2005-09-20 00:00:00 Completed [facility] HIB 3 Dose Schedule 2005-09-20 00:00:00 Completed [facility] Hepatitis A Adult 2005-09-20 00:00:00 Completed [facility] Hep B, Adol or Pedi Dosage 2005-09-20 00:00:00 Completed [facility] Pneumococcal 13 Conjugate, PCV13 (Prevnar 13) 2005-09-20 00:00:00 Completed [facility] Polio (IPV/OPV) 2005-09-20 00:00:00 Completed [facility] DTaP, Unspecified Formulation 2005-09-20 00:00:00 Completed [facility] HEPATITIS A 2005-09-20 00:00:00 Completed [facility] HIB 4 Dose Schedule 2005-09-20 00:00:00 Completed [facility] Pneumococcal 7 Conjugate, PCV7 (Prevnar7) 2005-09-20 00:00:00 Completed [facility] IPV 2005-09-20 00:00:00 Completed [facility] DTAP 2005-09-20 00:00:00 Completed [facility] HIB 3 Dose Schedule 2005-09-20 00:00:00 Completed [facility] Hepatitis A Adult 2005-09-20 00:00:00 Completed [facility] Hep B, Adol or Pedi Dosage 2005-09-20 00:00:00 Completed [facility] Pneumococcal 13 Conjugate, PCV13 (Prevnar 13) 2005-09-20 00:00:00 Completed [facility] Polio (IPV/OPV) 2005-09-20 00:00:00 Completed [facility] DTaP, Unspecified Formulation 2005-09-20 00:00:00 Completed [facility] HEPATITIS A 2005-09-20 00:00:00 Completed [facility] HIB 4 Dose Schedule 2005-09-20 00:00:00 Completed [facility] Pneumococcal 7 Conjugate, PCV7 (Prevnar7) 2005-09-20 00:00:00 Completed [facility] IPV 2005-09-20 00:00:00 Completed [facility] DTAP 2005-09-20 00:00:00 Completed [facility] HIB 3 Dose Schedule 2005-09-20 00:00:00 Completed [facility] Hepatitis A Adult 2005-09-20 00:00:00 Completed [facility] Hep B, Adol or Pedi Dosage 2005-09-20 00:00:00 Completed [facility] Pneumococcal 13 Conjugate, PCV13 (Prevnar 13) 2005-09-20 00:00:00 Completed [facility] Polio (IPV/OPV) 2005-09-20 00:00:00 Completed [facility] DTaP, Unspecified Formulation 2005-09-20 00:00:00 Completed [facility] HEPATITIS A 2005-09-20 00:00:00 Completed [facility] HIB 4 Dose Schedule 2005-09-20 00:00:00 Completed [facility] Pneumococcal 7 Conjugate, PCV7 (Prevnar7) 2005-09-20 00:00:00 Completed [facility] IPV 2005-09-20 00:00:00 Completed [facility] DTAP 2005-09-20 00:00:00 Completed [facility] HIB 3 Dose Schedule 2005-09-20 00:00:00 Completed [facility] Hepatitis A Adult 2005-09-20 00:00:00 Completed [facility] Hep B, Adol or Pedi Dosage 2005-09-20 00:00:00 Completed [facility] Pneumococcal 13 Conjugate, PCV13 (Prevnar 13) 2005-09-20 00:00:00 Completed [facility] Polio (IPV/OPV) 2005-09-20 00:00:00 Completed [facility] DTaP, Unspecified Formulation 2005-09-20 00:00:00 Completed [facility] HEPATITIS A 2005-09-20 00:00:00 Completed [facility] HIB 4 Dose Schedule 2005-09-20 00:00:00 Completed [facility] Pneumococcal 7 Conjugate, PCV7 (Prevnar7) 2005-09-20 00:00:00 Completed [facility] IPV 2005-09-20 00:00:00 Completed [facility] DTAP 2005-09-20 00:00:00 Completed [facility] HIB 3 Dose Schedule 2005-09-20 00:00:00 Completed [facility] Hepatitis A Adult 2005-09-20 00:00:00 Completed [facility] Hep B, Adol or Pedi Dosage 2005-09-20 00:00:00 Completed [facility] Pneumococcal 13 Conjugate, PCV13 (Prevnar 13) 2005-09-20 00:00:00 Completed [facility] Polio (IPV/OPV) 2005-09-20 00:00:00 Completed [facility] DTaP, Unspecified Formulation 2005-09-20 00:00:00 Completed [facility] HEPATITIS A 2005-09-20 00:00:00 Completed [facility] HIB 4 Dose Schedule 2005-09-20 00:00:00 Completed [facility] Pneumococcal 7 Conjugate, PCV7 (Prevnar7) 2005-09-20 00:00:00 Completed [facility] IPV 2005-09-20 00:00:00 Completed [facility] DTAP 2005-09-20 00:00:00 Completed [facility] HIB 3 Dose Schedule 2005-09-20 00:00:00 Completed [facility] Hepatitis A Adult 2005-09-20 00:00:00 Completed [facility] Hep B, Adol or Pedi Dosage 2005-09-20 00:00:00 Completed [facility] Pneumococcal 13 Conjugate, PCV13 (Prevnar 13) 2005-09-20 00:00:00 Completed [facility] Polio (IPV/OPV) 2005-09-20 00:00:00 Completed [facility] DTaP, Unspecified Formulation 2005-09-20 00:00:00 Completed [facility] HEPATITIS A 2005-09-20 00:00:00 Completed [facility] HIB 4 Dose Schedule 2005-09-20 00:00:00 Completed [facility] Pneumococcal 7 Conjugate, PCV7 (Prevnar7) 2005-09-20 00:00:00 Completed [facility] IPV 2005-09-20 00:00:00 Completed [facility] DTAP 2005-09-20 00:00:00 Completed [facility] HIB 3 Dose Schedule 2005-09-20 00:00:00 Completed [facility] Hepatitis A Adult 2005-09-20 00:00:00 Completed [facility] Hep B, Adol or Pedi Dosage 2005-09-20 00:00:00 Completed [facility] Pneumococcal 13 Conjugate, PCV13 (Prevnar 13) 2005-09-20 00:00:00 Completed [facility] Polio (IPV/OPV) 2005-09-20 00:00:00 Completed [facility] DTaP, Unspecified Formulation 2005-09-20 00:00:00 Completed [facility] HEPATITIS A 2005-09-20 00:00:00 Completed [facility] HIB 4 Dose Schedule 2005-09-20 00:00:00 Completed [facility] Pneumococcal 7 Conjugate, PCV7 (Prevnar7) 2005-09-20 00:00:00 Completed [facility] IPV 2005-09-20 00:00:00 Completed [facility] DTAP 2005-09-20 00:00:00 Completed [facility] HIB 3 Dose Schedule 2005-09-20 00:00:00 Completed [facility] Hepatitis A Adult 2005-09-20 00:00:00 Completed [facility] Hep B, Adol or Pedi Dosage 2005-09-20 00:00:00 Completed [facility] Pneumococcal 13 Conjugate, PCV13 (Prevnar 13) 2005-09-20 00:00:00 Completed [facility] Polio (IPV/OPV) 2005-09-20 00:00:00 Completed [facility] DTaP, Unspecified Formulation 2005-09-20 00:00:00 Completed [facility] HEPATITIS A 2005-09-20 00:00:00 Completed [facility] HIB 4 Dose Schedule 2005-09-20 00:00:00 Completed [facility] Pneumococcal 7 Conjugate, PCV7 (Prevnar7) 2005-09-20 00:00:00 Completed [facility] IPV 2005-09-20 00:00:00 Completed [facility] DTAP 2005-09-20 00:00:00 Completed [facility] HIB 3 Dose Schedule 2005-09-20 00:00:00 Completed [facility] Hepatitis A Adult 2005-09-20 00:00:00 Completed [facility] Hep B, Adol or Pedi Dosage 2005-09-20 00:00:00 Completed [facility] Pneumococcal 13 Conjugate, PCV13 (Prevnar 13) 2005-09-20 00:00:00 Completed [facility] Polio (IPV/OPV) 2005-09-20 00:00:00 Completed [facility] DTaP, Unspecified Formulation 2005-09-20 00:00:00 Completed [facility] HEPATITIS A 2005-09-20 00:00:00 Completed [facility] HIB 4 Dose Schedule 2005-09-20 00:00:00 Completed [facility] Pneumococcal 7 Conjugate, PCV7 (Prevnar7) 2005-09-20 00:00:00 Completed [facility] IPV 2005-09-20 00:00:00 Completed [facility] DTAP 2005-09-20 00:00:00 Completed [facility] HIB 3 Dose Schedule 2005-09-20 00:00:00 Completed [facility] Hepatitis A Adult 2005-09-20 00:00:00 Completed [facility] Hep B, Adol or Pedi Dosage 2005-09-20 00:00:00 Completed [facility] Pneumococcal 13 Conjugate, PCV13 (Prevnar 13) 2005-09-20 00:00:00 Completed [facility] Polio (IPV/OPV) 2005-09-20 00:00:00 Completed [facility] DTaP, Unspecified Formulation 2005-09-20 00:00:00 Completed [facility] HEPATITIS A 2005-09-20 00:00:00 Completed [facility] HIB 4 Dose Schedule 2005-09-20 00:00:00 Completed [facility] Pneumococcal 7 Conjugate, PCV7 (Prevnar7) 2005-09-20 00:00:00 Completed [facility] IPV 2005-09-20 00:00:00 Completed [facility] DTAP 2005-09-20 00:00:00 Completed [facility] HIB 3 Dose Schedule 2005-09-20 00:00:00 Completed [facility] Hepatitis A Adult 2005-09-20 00:00:00 Completed [facility] Hep B, Adol or Pedi Dosage 2005-09-20 00:00:00 Completed [facility] Pneumococcal 13 Conjugate, PCV13 (Prevnar 13) 2005-09-20 00:00:00 Completed [facility] Polio (IPV/OPV) 2005-09-20 00:00:00 Completed [facility] DTaP, Unspecified Formulation 2005-09-20 00:00:00 Completed [facility] HEPATITIS A 2005-09-20 00:00:00 Completed [facility] HIB 4 Dose Schedule 2005-09-20 00:00:00 Completed [facility] Pneumococcal 7 Conjugate, PCV7 (Prevnar7) 2005-09-20 00:00:00 Completed [facility] IPV 2005-09-20 00:00:00 Completed [facility] DTAP 2005-09-20 00:00:00 Completed [facility] HIB 3 Dose Schedule 2005-09-20 00:00:00 Completed [facility] Hepatitis A Adult 2005-09-20 00:00:00 Completed [facility] Hep B, Adol or Pedi Dosage 2005-09-20 00:00:00 Completed [facility] Pneumococcal 13 Conjugate, PCV13 (Prevnar 13) 2005-09-20 00:00:00 Completed [facility] Polio (IPV/OPV) 2005-09-20 00:00:00 Completed [facility] DTaP, Unspecified Formulation 2005-09-20 00:00:00 Completed [facility] HEPATITIS A 2005-09-20 00:00:00 Completed [facility] HIB 4 Dose Schedule 2005-09-20 00:00:00 Completed [facility] Pneumococcal 7 Conjugate, PCV7 (Prevnar7) 2005-09-20 00:00:00 Completed [facility] IPV 2005-09-20 00:00:00 Completed [facility] DTAP 2005-09-20 00:00:00 Completed [facility] HIB 3 Dose Schedule 2005-09-20 00:00:00 Completed [facility] Hepatitis A Adult 2005-09-20 00:00:00 Completed [facility] Hep B, Adol or Pedi Dosage 2005-09-20 00:00:00 Completed [facility] Pneumococcal 13 Conjugate, PCV13 (Prevnar 13) 2005-09-20 00:00:00 Completed [facility] Polio (IPV/OPV) 2005-09-20 00:00:00 [facility] [facility] DTaP, Unspecified Formulation 2005-09-20 00:00:00 Completed [facility] HEPATITIS A 2005-09-20 00:00:00 Completed [facility] HIB 4 Dose Schedule 2005-09-20 00:00:00 Completed [facility] Pneumococcal 7 Conjugate, PCV7 (Prevnar7) 2005-09-20 00:00:00 Completed [facility] IPV 2005-09-20 00:00:00 Completed [facility] DTAP 2005-09-20 00:00:00 Completed [facility] HIB 3 Dose Schedule 2005-09-20 00:00:00 Completed [facility] Hepatitis A Adult 2005-09-20 00:00:00 Completed [facility] Hep B, Adol or Pedi Dosage 2005-09-20 00:00:00 Completed [facility] Pneumococcal 13 Conjugate, PCV13 (Prevnar 13) 2005-09-20 00:00:00 Completed [facility] Polio (IPV/OPV) 2005-09-20 00:00:00 Completed [facility] DTaP, Unspecified Formulation 2005-09-20 00:00:00 Completed [facility] HEPATITIS A 2005-09-20 00:00:00 Completed [facility] HIB 4 Dose Schedule 2005-09-20 00:00:00 Completed [facility] Pneumococcal 7 Conjugate, PCV7 (Prevnar7) 2005-09-20 00:00:00 Completed [facility] IPV 2005-09-20 00:00:00 Completed [facility] DTAP 2005-09-20 00:00:00 Completed [facility] HIB 3 Dose Schedule 2005-09-20 00:00:00 Completed [facility] Hepatitis A Adult 2005-09-20 00:00:00 Completed [facility] Hep B, Adol or Pedi Dosage 2005-09-20 00:00:00 Completed [facility] Pneumococcal 13 Conjugate, PCV13 (Prevnar 13) 2005-09-20 00:00:00 Completed [facility] Polio (IPV/OPV) 2005-09-20 00:00:00 Completed [facility] DTaP, Unspecified Formulation 2005-09-20 00:00:00 Completed [facility] HEPATITIS A 2005-09-20 00:00:00 Completed [facility] HIB 4 Dose Schedule 2005-09-20 00:00:00 Completed [facility] Pneumococcal 7 Conjugate, PCV7 (Prevnar7) 2005-09-20 00:00:00 Completed [facility] IPV 2005-09-20 00:00:00 Completed [facility] DTAP 2005-09-20 00:00:00 Completed [facility] HIB 3 Dose Schedule 2005-09-20 00:00:00 Completed [facility] Hepatitis A Adult 2005-09-20 00:00:00 Completed [facility] Hep B, Adol or Pedi Dosage 2005-09-20 00:00:00 Completed [facility] Pneumococcal 13 Conjugate, PCV13 (Prevnar 13) 2005-09-20 00:00:00 Completed [facility] Polio (IPV/OPV) 2005-09-20 00:00:00 Completed [facility] DTaP, Unspecified Formulation 2005-09-20 00:00:00 Completed [facility] HEPATITIS A 2005-09-20 00:00:00 Completed [facility] HIB 4 Dose Schedule 2005-09-20 00:00:00 Completed [facility] Pneumococcal 7 Conjugate, PCV7 (Prevnar7) 2005-09-20 00:00:00 Completed [facility] IPV 2005-09-20 00:00:00 Completed [facility] DTAP 2005-09-20 00:00:00 Completed [facility] HIB 3 Dose Schedule 2005-09-20 00:00:00 Completed [facility] Hepatitis A Adult 2005-09-20 00:00:00 Completed [facility] Hep B, Adol or Pedi Dosage 2005-09-20 00:00:00 Completed [facility] Pneumococcal 13 Conjugate, PCV13 (Prevnar 13) 2005-09-20 00:00:00 Completed [facility] Polio (IPV/OPV) 2005-09-20 00:00:00 Completed [facility] DTaP, Unspecified Formulation 2005-09-20 00:00:00 Completed [facility] HEPATITIS A 2005-09-20 00:00:00 Completed [facility] HIB 4 Dose Schedule 2005-09-20 00:00:00 Completed [facility] Pneumococcal 7 Conjugate, PCV7 (Prevnar7) 2005-09-20 00:00:00 Completed [facility] IPV 2005-09-20 00:00:00 Completed [facility] DTAP 2005-09-20 00:00:00 Completed [facility] HIB 3 Dose Schedule 2005-09-20 00:00:00 Completed [facility] Hepatitis A Adult 2005-09-20 00:00:00 Completed [facility] Hep B, Adol or Pedi Dosage 2005-09-20 00:00:00 Completed [facility] Pneumococcal 13 Conjugate, PCV13 (Prevnar 13) 2005-09-20 00:00:00 Completed [facility] Polio (IPV/OPV) 2005-09-20 00:00:00 Completed [facility] DTaP, Unspecified Formulation 2005-09-20 00:00:00 Completed [facility] HEPATITIS A 2005-09-20 00:00:00 Completed [facility] HIB 4 Dose Schedule 2005-09-20 00:00:00 Completed [facility] Pneumococcal 7 Conjugate, PCV7 (Prevnar7) 2005-09-20 00:00:00 Completed [facility] IPV 2005-09-20 00:00:00 Completed [facility] DTAP 2005-09-20 00:00:00 Completed [facility] HIB 3 Dose Schedule 2005-09-20 00:00:00 Completed [facility] Hepatitis A Adult 2005-09-20 00:00:00 Completed [facility] Hep B, Adol or Pedi Dosage 2005-09-20 00:00:00 Completed [facility] Pneumococcal 13 Conjugate, PCV13 (Prevnar 13) 2005-09-20 00:00:00 Completed [facility] Polio (IPV/OPV) 2005-09-20 00:00:00 Completed [facility] DTaP, Unspecified Formulation 2005-09-20 00:00:00 Completed [facility] HEPATITIS A 2005-09-20 00:00:00 Completed [facility] HIB 4 Dose Schedule 2005-09-20 00:00:00 Completed [facility] Pneumococcal 7 Conjugate, PCV7 (Prevnar7) 2005-09-20 00:00:00 Completed [facility] IPV 2005-09-20 00:00:00 Completed [facility] DTAP 2005-09-20 00:00:00 Completed [facility] HIB 3 Dose Schedule 2005-09-20 00:00:00 Completed [facility] Hepatitis A Adult 2005-09-20 00:00:00 Completed [facility] Hep B, Adol or Pedi Dosage 2005-09-20 00:00:00 Completed [facility] Pneumococcal 13 Conjugate, PCV13 (Prevnar 13) 2005-09-20 00:00:00 Completed [facility] Polio (IPV/OPV) 2005-09-20 00:00:00 Completed [facility] DTaP, Unspecified Formulation 2005-09-20 00:00:00 Completed [facility] HEPATITIS A 2005-09-20 00:00:00 Completed [facility] HIB 4 Dose Schedule 2005-09-20 00:00:00 Completed [facility] Pneumococcal 7 Conjugate, PCV7 (Prevnar7) 2005-09-20 00:00:00 Completed [facility] IPV 2005-09-20 00:00:00 Completed [facility] DTAP 2004-07-22 00:00:00 Completed [facility] Hep B, Adol or Pedi Dosage 2004-07-22 00:00:00 Completed [facility] MMR 2004-07-22 00:00:00 Completed [facility] Polio (IPV/OPV) 2004-07-22 00:00:00 Completed [facility] Varicella (varivax)(chicken pox) 2004-07-22 00:00:00 Completed [facility] DTAP 2004-07-22 00:00:00 Completed [facility] Hep B, Adol or Pedi Dosage 2004-07-22 00:00:00 Completed [facility] MMR 2004-07-22 00:00:00 Completed [facility] Polio (IPV/OPV) 2004-07-22 00:00:00 Completed [facility] Varicella (varivax)(chicken pox) 2004-07-22 00:00:00 Completed [facility] DTAP 2004-07-22 00:00:00 Completed [facility] Hep B, Adol or Pedi Dosage 2004-07-22 00:00:00 Completed [facility] MMR 2004-07-22 00:00:00 Completed [facility] Polio (IPV/OPV) 2004-07-22 00:00:00 Completed [facility] Varicella (varivax)(chicken pox) 2004-07-22 00:00:00 Completed [facility] DTAP 2004-07-22 00:00:00 Completed [facility] Hep B, Adol or Pedi Dosage 2004-07-22 00:00:00 Completed [facility] MMR 2004-07-22 00:00:00 Completed [facility] Polio (IPV/OPV) 2004-07-22 00:00:00 Completed [facility] Varicella (varivax)(chicken pox) 2004-07-22 00:00:00 Completed [facility] DTAP 2004-07-22 00:00:00 Completed [facility] Hep B, Adol or Pedi Dosage 2004-07-22 00:00:00 Completed [facility] MMR 2004-07-22 00:00:00 Completed [facility] Polio (IPV/OPV) 2004-07-22 00:00:00 Completed [facility] Varicella (varivax)(chicken pox) 2004-07-22 00:00:00 Completed [facility] DTAP 2004-07-22 00:00:00 Completed [facility] Hep B, Adol or Pedi Dosage 2004-07-22 00:00:00 Completed [facility] MMR 2004-07-22 00:00:00 Completed [facility] Polio (IPV/OPV) 2004-07-22 00:00:00 Completed [facility] Varicella (varivax)(chicken pox) 2004-07-22 00:00:00 Completed [facility] DTAP 2004-07-22 00:00:00 Completed [facility] Hep B, Adol or Pedi Dosage 2004-07-22 00:00:00 Completed [facility] MMR 2004-07-22 00:00:00 Completed [facility] Polio (IPV/OPV) 2004-07-22 00:00:00 Completed [facility] Varicella (varivax)(chicken pox) 2004-07-22 00:00:00 Completed [facility] DTAP 2004-07-22 00:00:00 Completed [facility] Hep B, Adol or Pedi Dosage 2004-07-22 00:00:00 Completed [facility] MMR 2004-07-22 00:00:00 Completed [facility] Polio (IPV/OPV) 2004-07-22 00:00:00 Completed [facility] Varicella (varivax)(chicken pox) 2004-07-22 00:00:00 Completed [facility] DTAP 2004-07-22 00:00:00 Completed [facility] Hep B, Adol or Pedi Dosage 2004-07-22 00:00:00 Completed [facility] MMR 2004-07-22 00:00:00 Completed [facility] Polio (IPV/OPV) 2004-07-22 00:00:00 Completed [facility] Varicella (varivax)(chicken pox) 2004-07-22 00:00:00 Completed [facility] DTAP 2004-07-22 00:00:00 Completed [facility] Hep B, Adol or Pedi Dosage 2004-07-22 00:00:00 Completed [facility] MMR 2004-07-22 00:00:00 Completed [facility] Polio (IPV/OPV) 2004-07-22 00:00:00 Completed [facility] Varicella (varivax)(chicken pox) 2004-07-22 00:00:00 Completed [facility] DTAP 2004-07-22 00:00:00 Completed [facility] Hep B, Adol or Pedi Dosage 2004-07-22 00:00:00 Completed [facility] MMR 2004-07-22 00:00:00 Completed [facility] Polio (IPV/OPV) 2004-07-22 00:00:00 Completed [facility] Varicella (varivax)(chicken pox) 2004-07-22 00:00:00 Completed [facility] DTAP 2004-07-22 00:00:00 Completed [facility] Hep B, Adol or Pedi Dosage 2004-07-22 00:00:00 Completed [facility] MMR 2004-07-22 00:00:00 Completed [facility] Polio (IPV/OPV) 2004-07-22 00:00:00 Completed [facility] Varicella (varivax)(chicken pox) 2004-07-22 00:00:00 Completed [facility] DTAP 2004-07-22 00:00:00 Completed [facility] Hep B, Adol or Pedi Dosage 2004-07-22 00:00:00 Completed [facility] MMR 2004-07-22 00:00:00 Completed [facility] Polio (IPV/OPV) 2004-07-22 00:00:00 Completed [facility] Varicella (varivax)(chicken pox) 2004-07-22 00:00:00 Completed [facility] DTAP 2004-07-22 00:00:00 Completed [facility] Hep B, Adol or Pedi Dosage 2004-07-22 00:00:00 Completed [facility] MMR 2004-07-22 00:00:00 Completed [facility] Polio (IPV/OPV) 2004-07-22 00:00:00 Completed [facility] Varicella (varivax)(chicken pox) 2004-07-22 00:00:00 Completed [facility] DTAP 2004-07-22 00:00:00 Completed [facility] Hep B, Adol or Pedi Dosage 2004-07-22 00:00:00 Completed [facility] MMR 2004-07-22 00:00:00 Completed [facility] Polio (IPV/OPV) 2004-07-22 00:00:00 Completed [facility] Varicella (varivax)(chicken pox) 2004-07-22 00:00:00 Completed [facility] DTAP 2004-07-22 00:00:00 Completed [facility] Hep B, Adol or Pedi Dosage 2004-07-22 00:00:00 Completed [facility] MMR 2004-07-22 00:00:00 Completed [facility] Polio (IPV/OPV) 2004-07-22 00:00:00 Completed [facility] Varicella (varivax)(chicken pox) 2004-07-22 00:00:00 Completed [facility] DTAP 2004-07-22 00:00:00 Completed [facility] Hep B, Adol or Pedi Dosage 2004-07-22 00:00:00 Completed [facility] MMR 2004-07-22 00:00:00 Completed [facility] Polio (IPV/OPV) 2004-07-22 00:00:00 Completed [facility] Varicella (varivax)(chicken pox) 2004-07-22 00:00:00 Completed [facility] DTAP 2004-07-22 00:00:00 Completed [facility] Hep B, Adol or Pedi Dosage 2004-07-22 00:00:00 Completed [facility] MMR 2004-07-22 00:00:00 Completed [facility] Polio (IPV/OPV) 2004-07-22 00:00:00 Completed [facility] Varicella (varivax)(chicken pox) 2004-07-22 00:00:00 Completed [facility] DTAP 2004-07-22 00:00:00 Completed [facility] Hep B, Adol or Pedi Dosage 2004-07-22 00:00:00 Completed [facility] MMR 2004-07-22 00:00:00 Completed [facility] Polio (IPV/OPV) 2004-07-22 00:00:00 Completed [facility] Varicella (varivax)(chicken pox) 2004-07-22 00:00:00 Completed [facility] DTAP 2004-07-22 00:00:00 Completed [facility] Hep B, Adol or Pedi Dosage 2004-07-22 00:00:00 Completed [facility] MMR 2004-07-22 00:00:00 Completed [facility] Polio (IPV/OPV) 2004-07-22 00:00:00 Completed [facility] Varicella (varivax)(chicken pox) 2004-07-22 00:00:00 Completed [facility] DTAP 2004-07-22 00:00:00 Completed [facility] Hep B, Adol or Pedi Dosage 2004-07-22 00:00:00 Completed [facility] MMR 2004-07-22 00:00:00 Completed [facility] Polio (IPV/OPV) 2004-07-22 00:00:00 Completed [facility] Varicella (varivax)(chicken pox) 2004-07-22 00:00:00 Completed [facility] DTAP 2004-07-22 00:00:00 Completed [facility] Hep B, Adol or Pedi Dosage 2004-07-22 00:00:00 Completed [facility] MMR 2004-07-22 00:00:00 Completed [facility] Polio (IPV/OPV) 2004-07-22 00:00:00 Completed [facility] Varicella (varivax)(chicken pox) 2004-07-22 00:00:00 Completed [facility] DTAP 2004-07-22 00:00:00 Completed [facility] Hep B, Adol or Pedi Dosage 2004-07-22 00:00:00 Completed [facility] MMR 2004-07-22 00:00:00 Completed [facility] Polio (IPV/OPV) 2004-07-22 00:00:00 Completed [facility] Varicella (varivax)(chicken pox) 2004-07-22 00:00:00 Completed [facility] DTAP 2004-07-22 00:00:00 Completed [facility] Hep B, Adol or Pedi Dosage 2004-07-22 00:00:00 Completed [facility] MMR 2004-07-22 00:00:00 Completed [facility] Polio (IPV/OPV) 2004-07-22 00:00:00 Completed [facility] Varicella (varivax)(chicken pox) 2004-07-22 00:00:00 Completed [facility] DTAP 2004-07-22 00:00:00 Completed [facility] Hep B, Adol or Pedi Dosage 2004-07-22 00:00:00 Completed [facility] MMR 2004-07-22 00:00:00 Completed [facility] Polio (IPV/OPV) 2004-07-22 00:00:00 Completed [facility] Varicella (varivax)(chicken pox) 2004-07-22 00:00:00 Completed [facility] DTAP 2004-07-22 00:00:00 Completed [facility] Hep B, Adol or Pedi Dosage 2004-07-22 00:00:00 Completed [facility] MMR 2004-07-22 00:00:00 Completed [facility] Polio (IPV/OPV) 2004-07-22 00:00:00 Completed [facility] Varicella (varivax)(chicken pox) 2004-07-22 00:00:00 Completed [facility] DTAP 2004-07-22 00:00:00 Completed [facility] Hep B, Adol or Pedi Dosage 2004-07-22 00:00:00 Completed [facility] MMR 2004-07-22 00:00:00 Completed [facility] Polio (IPV/OPV) 2004-07-22 00:00:00 Completed [facility] Varicella (varivax)(chicken pox) 2004-07-22 00:00:00 Completed [facility] DTAP 2004-07-22 00:00:00 Completed [facility] Hep B, Adol or Pedi Dosage 2004-07-22 00:00:00 Completed [facility] MMR 2004-07-22 00:00:00 Completed [facility] Polio (IPV/OPV) 2004-07-22 00:00:00 Completed [facility] Varicella (varivax)(chicken pox) 2004-07-22 00:00:00 Completed [facility] DTAP 2004-07-22 00:00:00 Completed [facility] Hep B, Adol or Pedi Dosage 2004-07-22 00:00:00 Completed [facility] MMR 2004-07-22 00:00:00 Completed [facility] Polio (IPV/OPV) 2004-07-22 00:00:00 Completed [facility] Varicella (varivax)(chicken pox) 2004-07-22 00:00:00 Completed [facility] DTAP 2004-07-22 00:00:00 Completed [facility] Hep B, Adol or Pedi Dosage 2004-07-22 00:00:00 Completed [facility] MMR 2004-07-22 00:00:00 Completed [facility] Polio (IPV/OPV) 2004-07-22 00:00:00 Completed [facility] Varicella (varivax)(chicken pox) 2004-07-22 00:00:00 Completed [facility] DTaP, Unspecified Formulation 2004-07-22 00:00:00 Completed [facility] IPV 2004-07-22 00:00:00 Completed [facility] DTAP 2004-07-22 00:00:00 Completed [facility] Hep B, Adol or Pedi Dosage 2004-07-22 00:00:00 Completed [facility] MMR 2004-07-22 00:00:00 Completed [facility] Polio (IPV/OPV) 2004-07-22 00:00:00 Completed [facility] Varicella (varivax)(chicken pox) 2004-07-22 00:00:00 Completed [facility] DTaP, Unspecified Formulation 2004-07-22 00:00:00 Completed [facility] IPV 2004-07-22 00:00:00 Completed [facility] DTAP 2004-07-22 00:00:00 Completed [facility] Hep B, Adol or Pedi Dosage 2004-07-22 00:00:00 Completed [facility] MMR 2004-07-22 00:00:00 Completed [facility] Polio (IPV/OPV) 2004-07-22 00:00:00 Completed [facility] Varicella (varivax)(chicken pox) 2004-07-22 00:00:00 Completed [facility] DTaP, Unspecified Formulation 2004-07-22 00:00:00 Completed [facility] IPV 2004-07-22 00:00:00 Completed [facility] DTAP 2004-07-22 00:00:00 Completed [facility] Hep B, Adol or Pedi Dosage 2004-07-22 00:00:00 Completed [facility] MMR 2004-07-22 00:00:00 Completed [facility] Polio (IPV/OPV) 2004-07-22 00:00:00 Completed [facility] Varicella (varivax)(chicken pox) 2004-07-22 00:00:00 Completed [facility] DTaP, Unspecified Formulation 2004-07-22 00:00:00 Completed [facility] IPV 2004-07-22 00:00:00 Completed [facility] DTAP 2004-07-22 00:00:00 Completed [facility] Hep B, Adol or Pedi Dosage 2004-07-22 00:00:00 Completed [facility] MMR 2004-07-22 00:00:00 Completed [facility] Polio (IPV/OPV) 2004-07-22 00:00:00 Completed [facility] Varicella (varivax)(chicken pox) 2004-07-22 00:00:00 Completed [facility] DTaP, Unspecified Formulation 2004-07-22 00:00:00 Completed [facility] IPV 2004-07-22 00:00:00 Completed [facility] DTAP 2004-07-22 00:00:00 Completed [facility] Hep B, Adol or Pedi Dosage 2004-07-22 00:00:00 Completed [facility] MMR 2004-07-22 00:00:00 Completed [facility] Polio (IPV/OPV) 2004-07-22 00:00:00 Completed [facility] Varicella (varivax)(chicken pox) 2004-07-22 00:00:00 Completed [facility] DTaP, Unspecified Formulation 2004-07-22 00:00:00 Completed [facility] IPV 2004-07-22 00:00:00 Completed [facility] DTAP 2004-07-22 00:00:00 Completed [facility] Hep B, Adol or Pedi Dosage 2004-07-22 00:00:00 Completed [facility] MMR 2004-07-22 00:00:00 Completed [facility] Polio (IPV/OPV) 2004-07-22 00:00:00 Completed [facility] Varicella (varivax)(chicken pox) 2004-07-22 00:00:00 Completed [facility] DTaP, Unspecified Formulation 2004-07-22 00:00:00 Completed [facility] IPV 2004-07-22 00:00:00 Completed [facility] DTAP 2004-07-22 00:00:00 Completed [facility] Hep B, Adol or Pedi Dosage 2004-07-22 00:00:00 Completed [facility] MMR 2004-07-22 00:00:00 Completed [facility] Polio (IPV/OPV) 2004-07-22 00:00:00 Completed [facility] Varicella (varivax)(chicken pox) 2004-07-22 00:00:00 Completed [facility] DTaP, Unspecified Formulation 2004-07-22 00:00:00 Completed [facility] IPV 2004-07-22 00:00:00 Completed [facility] DTAP 2004-07-22 00:00:00 Completed [facility] Hep B, Adol or Pedi Dosage 2004-07-22 00:00:00 Completed [facility] MMR 2004-07-22 00:00:00 Completed [facility] Polio (IPV/OPV) 2004-07-22 00:00:00 Completed [facility] Varicella (varivax)(chicken pox) 2004-07-22 00:00:00 Completed [facility] DTaP, Unspecified Formulation 2004-07-22 00:00:00 Completed [facility] IPV 2004-07-22 00:00:00 Completed [facility] DTAP 2004-07-22 00:00:00 Completed [facility] Hep B, Adol or Pedi Dosage 2004-07-22 00:00:00 Completed [facility] MMR 2004-07-22 00:00:00 Completed [facility] Polio (IPV/OPV) 2004-07-22 00:00:00 Completed [facility] Varicella (varivax)(chicken pox) 2004-07-22 00:00:00 Completed [facility] DTaP, Unspecified Formulation 2004-07-22 00:00:00 Completed [facility] IPV 2004-07-22 00:00:00 Completed [facility] DTAP 2004-07-22 00:00:00 Completed [facility] Hep B, Adol or Pedi Dosage 2004-07-22 00:00:00 Completed [facility] MMR 2004-07-22 00:00:00 Completed [facility] Polio (IPV/OPV) 2004-07-22 00:00:00 Completed [facility] Varicella (varivax)(chicken pox) 2004-07-22 00:00:00 Completed [facility] DTaP, Unspecified Formulation 2004-07-22 00:00:00 Completed [facility] IPV 2004-07-22 00:00:00 Completed [facility] DTAP 2004-07-22 00:00:00 Completed [facility] Hep B, Adol or Pedi Dosage 2004-07-22 00:00:00 Completed [facility] MMR 2004-07-22 00:00:00 Completed [facility] Polio (IPV/OPV) 2004-07-22 00:00:00 Completed [facility] Varicella (varivax)(chicken pox) 2004-07-22 00:00:00 Completed [facility] DTaP, Unspecified Formulation 2004-07-22 00:00:00 Completed [facility] IPV 2004-07-22 00:00:00 Completed [facility] DTAP 2004-07-22 00:00:00 Completed [facility] Hep B, Adol or Pedi Dosage 2004-07-22 00:00:00 Completed [facility] MMR 2004-07-22 00:00:00 Completed [facility] Polio (IPV/OPV) 2004-07-22 00:00:00 Completed [facility] Varicella (varivax)(chicken pox) 2004-07-22 00:00:00 Completed [facility] DTaP, Unspecified Formulation 2004-07-22 00:00:00 Completed [facility] IPV 2004-07-22 00:00:00 Completed [facility] DTAP 2004-07-22 00:00:00 Completed [facility] Hep B, Adol or Pedi Dosage 2004-07-22 00:00:00 Completed [facility] MMR 2004-07-22 00:00:00 Completed [facility] Polio (IPV/OPV) 2004-07-22 00:00:00 Completed [facility] Varicella (varivax)(chicken pox) 2004-07-22 00:00:00 Completed [facility] DTaP, Unspecified Formulation 2004-07-22 00:00:00 Completed [facility] IPV 2004-07-22 00:00:00 Completed [facility] DTAP 2004-07-22 00:00:00 Completed [facility] Hep B, Adol or Pedi Dosage 2004-07-22 00:00:00 Completed [facility] MMR 2004-07-22 00:00:00 Completed [facility] Polio (IPV/OPV) 2004-07-22 00:00:00 Completed [facility] Varicella (varivax)(chicken pox) 2004-07-22 00:00:00 Completed [facility] DTaP, Unspecified Formulation 2004-07-22 00:00:00 Completed [facility] IPV 2004-07-22 00:00:00 Completed [facility] DTAP 2004-07-22 00:00:00 Completed [facility] Hep B, Adol or Pedi Dosage 2004-07-22 00:00:00 Completed [facility] MMR 2004-07-22 00:00:00 Completed [facility] Polio (IPV/OPV) 2004-07-22 00:00:00 Completed [facility] Varicella (varivax)(chicken pox) 2004-07-22 00:00:00 Completed [facility] DTaP, Unspecified Formulation 2004-07-22 00:00:00 Completed [facility] IPV 2004-07-22 00:00:00 Completed [facility] DTAP 2004-07-22 00:00:00 Completed [facility] Hep B, Adol or Pedi Dosage 2004-07-22 00:00:00 Completed [facility] MMR 2004-07-22 00:00:00 Completed [facility] Polio (IPV/OPV) 2004-07-22 00:00:00 Completed [facility] Varicella (varivax)(chicken pox) 2004-07-22 00:00:00 Completed [facility] DTaP, Unspecified Formulation 2004-07-22 00:00:00 Completed [facility] IPV 2004-07-22 00:00:00 Completed [facility] DTAP 2004-07-22 00:00:00 Completed [facility] Hep B, Adol or Pedi Dosage 2004-07-22 00:00:00 Completed [facility] MMR 2004-07-22 00:00:00 Completed [facility] Polio (IPV/OPV) 2004-07-22 00:00:00 Completed [facility] Varicella (varivax)(chicken pox) 2004-07-22 00:00:00 Completed [facility] DTaP, Unspecified Formulation 2004-07-22 00:00:00 Completed [facility] IPV 2004-07-22 00:00:00 Completed [facility] DTAP 2004-07-22 00:00:00 Completed [facility] Hep B, Adol or Pedi Dosage 2004-07-22 00:00:00 Completed [facility] MMR 2004-07-22 00:00:00 Completed [facility] Polio (IPV/OPV) 2004-07-22 00:00:00 Completed [facility] Varicella (varivax)(chicken pox) 2004-07-22 00:00:00 Completed [facility] DTaP, Unspecified Formulation 2004-07-22 00:00:00 Completed [facility] IPV 2004-07-22 00:00:00 Completed [facility] DTAP 2004-07-22 00:00:00 Completed [facility] Hep B, Adol or Pedi Dosage 2004-07-22 00:00:00 Completed [facility] MMR 2004-07-22 00:00:00 Completed [facility] Polio (IPV/OPV) 2004-07-22 00:00:00 Completed [facility] Varicella (varivax)(chicken pox) 2004-07-22 00:00:00 Completed [facility] DTaP, Unspecified Formulation 2004-07-22 00:00:00 Completed [facility] IPV 2004-07-22 00:00:00 Completed [facility] DTAP 2004-07-22 00:00:00 Completed [facility] Hep B, Adol or Pedi Dosage 2004-07-22 00:00:00 Completed [facility] MMR 2004-07-22 00:00:00 Completed [facility] Polio (IPV/OPV) 2004-07-22 00:00:00 Completed [facility] Varicella (varivax)(chicken pox) 2004-07-22 00:00:00 Completed [facility] DTaP, Unspecified Formulation 2004-07-22 00:00:00 Completed [facility] IPV 2004-07-22 00:00:00 Completed [facility] DTAP 2004-07-22 00:00:00 Completed [facility] Hep B, Adol or Pedi Dosage 2004-07-22 00:00:00 Completed [facility] MMR 2004-07-22 00:00:00 Completed [facility] Polio (IPV/OPV) 2004-07-22 00:00:00 Completed [facility] Varicella (varivax)(chicken pox) 2004-07-22 00:00:00 Completed [facility] DTaP, Unspecified Formulation 2004-07-22 00:00:00 Completed [facility] IPV 2004-07-22 00:00:00 Completed [facility] DTAP 2003-06-04 00:00:00 Completed [facility] HIB 3 Dose Schedule 2003-06-04 00:00:00 Completed [facility] Hep B, Adol or Pedi Dosage 2003-06-04 00:00:00 Completed [facility] MMR 2003-06-04 00:00:00 Completed [facility] Polio (IPV/OPV) 2003-06-04 00:00:00 Completed [facility] Varicella (varivax)(chicken pox) 2003-06-04 00:00:00 Completed [facility] DTAP 2003-06-04 00:00:00 Completed [facility] HIB 3 Dose Schedule 2003-06-04 00:00:00 Completed [facility] Hep B, Adol or Pedi Dosage 2003-06-04 00:00:00 Completed [facility] MMR 2003-06-04 00:00:00 Completed [facility] Polio (IPV/OPV) 2003-06-04 00:00:00 Completed [facility] Varicella (varivax)(chicken pox) 2003-06-04 00:00:00 Completed [facility] DTAP 2003-06-04 00:00:00 Completed [facility] HIB 3 Dose Schedule 2003-06-04 00:00:00 Completed [facility] Hep B, Adol or Pedi Dosage 2003-06-04 00:00:00 Completed [facility] MMR 2003-06-04 00:00:00 Completed [facility] Polio (IPV/OPV) 2003-06-04 00:00:00 Completed [facility] Varicella (varivax)(chicken pox) 2003-06-04 00:00:00 Completed [facility] DTAP 2003-06-04 00:00:00 Completed [facility] HIB 3 Dose Schedule 2003-06-04 00:00:00 Completed [facility] Hep B, Adol or Pedi Dosage 2003-06-04 00:00:00 Completed [facility] MMR 2003-06-04 00:00:00 Completed [facility] Polio (IPV/OPV) 2003-06-04 00:00:00 Completed [facility] Varicella (varivax)(chicken pox) 2003-06-04 00:00:00 Completed [facility] DTAP 2003-06-04 00:00:00 Completed [facility] HIB 3 Dose Schedule 2003-06-04 00:00:00 Completed [facility] Hep B, Adol or Pedi Dosage 2003-06-04 00:00:00 Completed [facility] MMR 2003-06-04 00:00:00 Completed [facility] Polio (IPV/OPV) 2003-06-04 00:00:00 Completed [facility] Varicella (varivax)(chicken pox) 2003-06-04 00:00:00 Completed [facility] DTAP 2003-06-04 00:00:00 Completed [facility] HIB 3 Dose Schedule 2003-06-04 00:00:00 Completed [facility] Hep B, Adol or Pedi Dosage 2003-06-04 00:00:00 Completed [facility] MMR 2003-06-04 00:00:00 Completed [facility] Polio (IPV/OPV) 2003-06-04 00:00:00 Completed [facility] Varicella (varivax)(chicken pox) 2003-06-04 00:00:00 Completed [facility] DTAP 2003-06-04 00:00:00 Completed [facility] HIB 3 Dose Schedule 2003-06-04 00:00:00 Completed [facility] Hep B, Adol or Pedi Dosage 2003-06-04 00:00:00 Completed [facility] MMR 2003-06-04 00:00:00 Completed [facility] Polio (IPV/OPV) 2003-06-04 00:00:00 Completed [facility] Varicella (varivax)(chicken pox) 2003-06-04 00:00:00 Completed [facility] DTAP 2003-06-04 00:00:00 Completed [facility] HIB 3 Dose Schedule 2003-06-04 00:00:00 Completed [facility] Hep B, Adol or Pedi Dosage 2003-06-04 00:00:00 Completed [facility] MMR 2003-06-04 00:00:00 Completed [facility] Polio (IPV/OPV) 2003-06-04 00:00:00 Completed [facility] Varicella (varivax)(chicken pox) 2003-06-04 00:00:00 Completed [facility] DTAP 2003-06-04 00:00:00 Completed [facility] HIB 3 Dose Schedule 2003-06-04 00:00:00 Completed [facility] Hep B, Adol or Pedi Dosage 2003-06-04 00:00:00 Completed [facility] MMR 2003-06-04 00:00:00 Completed [facility] Polio (IPV/OPV) 2003-06-04 00:00:00 Completed [facility] Varicella (varivax)(chicken pox) 2003-06-04 00:00:00 Completed [facility] DTAP 2003-06-04 00:00:00 Completed [facility] HIB 3 Dose Schedule 2003-06-04 00:00:00 Completed [facility] Hep B, Adol or Pedi Dosage 2003-06-04 00:00:00 Completed [facility] MMR 2003-06-04 00:00:00 Completed [facility] Polio (IPV/OPV) 2003-06-04 00:00:00 Completed [facility] Varicella (varivax)(chicken pox) 2003-06-04 00:00:00 Completed [facility] DTAP 2003-06-04 00:00:00 Completed [facility] HIB 3 Dose Schedule 2003-06-04 00:00:00 Completed [facility] Hep B, Adol or Pedi Dosage 2003-06-04 00:00:00 Completed [facility] MMR 2003-06-04 00:00:00 Completed [facility] Polio (IPV/OPV) 2003-06-04 00:00:00 Completed [facility] Varicella (varivax)(chicken pox) 2003-06-04 00:00:00 Completed [facility] DTAP 2003-06-04 00:00:00 Completed [facility] HIB 3 Dose Schedule 2003-06-04 00:00:00 Completed [facility] Hep B, Adol or Pedi Dosage 2003-06-04 00:00:00 Completed [facility] MMR 2003-06-04 00:00:00 Completed [facility] Polio (IPV/OPV) 2003-06-04 00:00:00 Completed [facility] Varicella (varivax)(chicken pox) 2003-06-04 00:00:00 Completed [facility] DTAP 2003-06-04 00:00:00 Completed [facility] HIB 3 Dose Schedule 2003-06-04 00:00:00 Completed [facility] Hep B, Adol or Pedi Dosage 2003-06-04 00:00:00 Completed [facility] MMR 2003-06-04 00:00:00 Completed [facility] Polio (IPV/OPV) 2003-06-04 00:00:00 Completed [facility] Varicella (varivax)(chicken pox) 2003-06-04 00:00:00 Completed [facility] DTAP 2003-06-04 00:00:00 Completed [facility] HIB 3 Dose Schedule 2003-06-04 00:00:00 Completed [facility] Hep B, Adol or Pedi Dosage 2003-06-04 00:00:00 Completed [facility] MMR 2003-06-04 00:00:00 Completed [facility] Polio (IPV/OPV) 2003-06-04 00:00:00 Completed [facility] Varicella (varivax)(chicken pox) 2003-06-04 00:00:00 Completed [facility] DTAP 2003-06-04 00:00:00 Completed [facility] HIB 3 Dose Schedule 2003-06-04 00:00:00 Completed [facility] Hep B, Adol or Pedi Dosage 2003-06-04 00:00:00 Completed [facility] MMR 2003-06-04 00:00:00 Completed [facility] Polio (IPV/OPV) 2003-06-04 00:00:00 Completed [facility] Varicella (varivax)(chicken pox) 2003-06-04 00:00:00 Completed [facility] DTAP 2003-06-04 00:00:00 Completed [facility] HIB 3 Dose Schedule 2003-06-04 00:00:00 Completed [facility] Hep B, Adol or Pedi Dosage 2003-06-04 00:00:00 Completed [facility] MMR 2003-06-04 00:00:00 Completed [facility] Polio (IPV/OPV) 2003-06-04 00:00:00 Completed [facility] Varicella (varivax)(chicken pox) 2003-06-04 00:00:00 Completed [facility] DTAP 2003-06-04 00:00:00 Completed [facility] HIB 3 Dose Schedule 2003-06-04 00:00:00 Completed [facility] Hep B, Adol or Pedi Dosage 2003-06-04 00:00:00 Completed [facility] MMR 2003-06-04 00:00:00 Completed [facility] Polio (IPV/OPV) 2003-06-04 00:00:00 Completed [facility] Varicella (varivax)(chicken pox) 2003-06-04 00:00:00 Completed [facility] DTAP 2003-06-04 00:00:00 Completed [facility] HIB 3 Dose Schedule 2003-06-04 00:00:00 Completed [facility] Hep B, Adol or Pedi Dosage 2003-06-04 00:00:00 Completed [facility] MMR 2003-06-04 00:00:00 Completed [facility] Polio (IPV/OPV) 2003-06-04 00:00:00 Completed [facility] Varicella (varivax)(chicken pox) 2003-06-04 00:00:00 Completed [facility] DTAP 2003-06-04 00:00:00 Completed [facility] HIB 3 Dose Schedule 2003-06-04 00:00:00 Completed [facility] Hep B, Adol or Pedi Dosage 2003-06-04 00:00:00 Completed [facility] MMR 2003-06-04 00:00:00 Completed [facility] Polio (IPV/OPV) 2003-06-04 00:00:00 Completed [facility] Varicella (varivax)(chicken pox) 2003-06-04 00:00:00 Completed [facility] DTAP 2003-06-04 00:00:00 Completed [facility] HIB 3 Dose Schedule 2003-06-04 00:00:00 Completed [facility] Hep B, Adol or Pedi Dosage 2003-06-04 00:00:00 Completed [facility] MMR 2003-06-04 00:00:00 Completed [facility] Polio (IPV/OPV) 2003-06-04 00:00:00 Completed [facility] Varicella (varivax)(chicken pox) 2003-06-04 00:00:00 Completed [facility] DTAP 2003-06-04 00:00:00 Completed [facility] HIB 3 Dose Schedule 2003-06-04 00:00:00 Completed [facility] Hep B, Adol or Pedi Dosage 2003-06-04 00:00:00 Completed [facility] MMR 2003-06-04 00:00:00 Completed [facility] Polio (IPV/OPV) 2003-06-04 00:00:00 Completed [facility] Varicella (varivax)(chicken pox) 2003-06-04 00:00:00 Completed [facility] DTAP 2003-06-04 00:00:00 Completed [facility] HIB 3 Dose Schedule 2003-06-04 00:00:00 Completed [facility] Hep B, Adol or Pedi Dosage 2003-06-04 00:00:00 Completed [facility] MMR 2003-06-04 00:00:00 Completed [facility] Polio (IPV/OPV) 2003-06-04 00:00:00 Completed [facility] Varicella (varivax)(chicken pox) 2003-06-04 00:00:00 Completed [facility] DTAP 2003-06-04 00:00:00 Completed [facility] HIB 3 Dose Schedule 2003-06-04 00:00:00 Completed [facility] Hep B, Adol or Pedi Dosage 2003-06-04 00:00:00 Completed [facility] MMR 2003-06-04 00:00:00 Completed [facility] Polio (IPV/OPV) 2003-06-04 00:00:00 Completed [facility] Varicella (varivax)(chicken pox) 2003-06-04 00:00:00 Completed [facility] DTAP 2003-06-04 00:00:00 Completed [facility] HIB 3 Dose Schedule 2003-06-04 00:00:00 Completed [facility] Hep B, Adol or Pedi Dosage 2003-06-04 00:00:00 Completed [facility] MMR 2003-06-04 00:00:00 Completed [facility] Polio (IPV/OPV) 2003-06-04 00:00:00 Completed [facility] Varicella (varivax)(chicken pox) 2003-06-04 00:00:00 Completed [facility] DTAP 2003-06-04 00:00:00 Completed [facility] HIB 3 Dose Schedule 2003-06-04 00:00:00 Completed [facility] Hep B, Adol or Pedi Dosage 2003-06-04 00:00:00 Completed [facility] MMR 2003-06-04 00:00:00 Completed [facility] Polio (IPV/OPV) 2003-06-04 00:00:00 Completed [facility] Varicella (varivax)(chicken pox) 2003-06-04 00:00:00 Completed [facility] DTAP 2003-06-04 00:00:00 Completed [facility] HIB 3 Dose Schedule 2003-06-04 00:00:00 Completed [facility] Hep B, Adol or Pedi Dosage 2003-06-04 00:00:00 Completed [facility] MMR 2003-06-04 00:00:00 Completed [facility] Polio (IPV/OPV) 2003-06-04 00:00:00 Completed [facility] Varicella (varivax)(chicken pox) 2003-06-04 00:00:00 Completed [facility] DTAP 2003-06-04 00:00:00 Completed [facility] HIB 3 Dose Schedule 2003-06-04 00:00:00 Completed [facility] Hep B, Adol or Pedi Dosage 2003-06-04 00:00:00 Completed [facility] MMR 2003-06-04 00:00:00 Completed [facility] Polio (IPV/OPV) 2003-06-04 00:00:00 Completed [facility] Varicella (varivax)(chicken pox) 2003-06-04 00:00:00 Completed [facility] DTAP 2003-06-04 00:00:00 Completed [facility] HIB 3 Dose Schedule 2003-06-04 00:00:00 Completed [facility] Hep B, Adol or Pedi Dosage 2003-06-04 00:00:00 Completed [facility] MMR 2003-06-04 00:00:00 Completed [facility] Polio (IPV/OPV) 2003-06-04 00:00:00 Completed [facility] Varicella (varivax)(chicken pox) 2003-06-04 00:00:00 Completed [facility] DTAP 2003-06-04 00:00:00 Completed [facility] HIB 3 Dose Schedule 2003-06-04 00:00:00 Completed [facility] Hep B, Adol or Pedi Dosage 2003-06-04 00:00:00 Completed [facility] MMR 2003-06-04 00:00:00 Completed [facility] Polio (IPV/OPV) 2003-06-04 00:00:00 Completed [facility] Varicella (varivax)(chicken pox) 2003-06-04 00:00:00 Completed [facility] DTAP 2003-06-04 00:00:00 Completed [facility] HIB 3 Dose Schedule 2003-06-04 00:00:00 Completed [facility] Hep B, Adol or Pedi Dosage 2003-06-04 00:00:00 Completed [facility] MMR 2003-06-04 00:00:00 [facility] [facility] Polio (IPV/OPV) 2003-06-04 00:00:00 Completed [facility] Varicella (varivax)(chicken pox) 2003-06-04 00:00:00 Completed [facility] DTaP, Unspecified Formulation 2003-06-04 00:00:00 Completed [facility] HIB 4 Dose Schedule 2003-06-04 00:00:00 Completed [facility] IPV 2003-06-04 00:00:00 Completed [facility] DTAP 2003-06-04 00:00:00 Completed [facility] HIB 3 Dose Schedule 2003-06-04 00:00:00 Completed [facility] Hep B, Adol or Pedi Dosage 2003-06-04 00:00:00 Completed [facility] MMR 2003-06-04 00:00:00 Completed [facility] Polio (IPV/OPV) 2003-06-04 00:00:00 Completed [facility] Varicella (varivax)(chicken pox) 2003-06-04 00:00:00 Completed [facility] DTaP, Unspecified Formulation 2003-06-04 00:00:00 Completed [facility] HIB 4 Dose Schedule 2003-06-04 00:00:00 Completed [facility] IPV 2003-06-04 00:00:00 Completed [facility] DTAP 2003-06-04 00:00:00 Completed [facility] HIB 3 Dose Schedule 2003-06-04 00:00:00 Completed [facility] Hep B, Adol or Pedi Dosage 2003-06-04 00:00:00 Completed [facility] MMR 2003-06-04 00:00:00 Completed [facility] Polio (IPV/OPV) 2003-06-04 00:00:00 Completed [facility] Varicella (varivax)(chicken pox) 2003-06-04 00:00:00 Completed [facility] DTaP, Unspecified Formulation 2003-06-04 00:00:00 Completed [facility] HIB 4 Dose Schedule 2003-06-04 00:00:00 Completed [facility] IPV 2003-06-04 00:00:00 Completed [facility] DTAP 2003-06-04 00:00:00 Completed [facility] HIB 3 Dose Schedule 2003-06-04 00:00:00 Completed [facility] Hep B, Adol or Pedi Dosage 2003-06-04 00:00:00 Completed [facility] MMR 2003-06-04 00:00:00 Completed [facility] Polio (IPV/OPV) 2003-06-04 00:00:00 Completed [facility] Varicella (varivax)(chicken pox) 2003-06-04 00:00:00 Completed [facility] DTaP, Unspecified Formulation 2003-06-04 00:00:00 Completed [facility] HIB 4 Dose Schedule 2003-06-04 00:00:00 Completed [facility] IPV 2003-06-04 00:00:00 Completed [facility] DTAP 2003-06-04 00:00:00 Completed [facility] HIB 3 Dose Schedule 2003-06-04 00:00:00 Completed [facility] Hep B, Adol or Pedi Dosage 2003-06-04 00:00:00 Completed [facility] MMR 2003-06-04 00:00:00 Completed [facility] Polio (IPV/OPV) 2003-06-04 00:00:00 Completed [facility] Varicella (varivax)(chicken pox) 2003-06-04 00:00:00 Completed [facility] DTaP, Unspecified Formulation 2003-06-04 00:00:00 Completed [facility] HIB 4 Dose Schedule 2003-06-04 00:00:00 Completed [facility] IPV 2003-06-04 00:00:00 Completed [facility] DTAP 2003-06-04 00:00:00 Completed [facility] HIB 3 Dose Schedule 2003-06-04 00:00:00 Completed [facility] Hep B, Adol or Pedi Dosage 2003-06-04 00:00:00 Completed [facility] MMR 2003-06-04 00:00:00 Completed [facility] Polio (IPV/OPV) 2003-06-04 00:00:00 Completed [facility] Varicella (varivax)(chicken pox) 2003-06-04 00:00:00 Completed [facility] DTaP, Unspecified Formulation 2003-06-04 00:00:00 Completed [facility] HIB 4 Dose Schedule 2003-06-04 00:00:00 Completed [facility] IPV 2003-06-04 00:00:00 Completed [facility] DTAP 2003-06-04 00:00:00 Completed [facility] HIB 3 Dose Schedule 2003-06-04 00:00:00 Completed [facility] Hep B, Adol or Pedi Dosage 2003-06-04 00:00:00 Completed [facility] MMR 2003-06-04 00:00:00 Completed [facility] Polio (IPV/OPV) 2003-06-04 00:00:00 Completed [facility] Varicella (varivax)(chicken pox) 2003-06-04 00:00:00 Completed [facility] DTaP, Unspecified Formulation 2003-06-04 00:00:00 Completed [facility] HIB 4 Dose Schedule 2003-06-04 00:00:00 Completed [facility] IPV 2003-06-04 00:00:00 Completed [facility] DTAP 2003-06-04 00:00:00 Completed [facility] HIB 3 Dose Schedule 2003-06-04 00:00:00 Completed [facility] Hep B, Adol or Pedi Dosage 2003-06-04 00:00:00 Completed [facility] MMR 2003-06-04 00:00:00 Completed [facility] Polio (IPV/OPV) 2003-06-04 00:00:00 Completed [facility] Varicella (varivax)(chicken pox) 2003-06-04 00:00:00 Completed [facility] DTaP, Unspecified Formulation 2003-06-04 00:00:00 Completed [facility] HIB 4 Dose Schedule 2003-06-04 00:00:00 Completed [facility] IPV 2003-06-04 00:00:00 Completed [facility] DTAP 2003-06-04 00:00:00 Completed [facility] HIB 3 Dose Schedule 2003-06-04 00:00:00 Completed [facility] Hep B, Adol or Pedi Dosage 2003-06-04 00:00:00 Completed [facility] MMR 2003-06-04 00:00:00 Completed [facility] Polio (IPV/OPV) 2003-06-04 00:00:00 Completed [facility] Varicella (varivax)(chicken pox) 2003-06-04 00:00:00 Completed [facility] DTaP, Unspecified Formulation 2003-06-04 00:00:00 Completed [facility] HIB 4 Dose Schedule 2003-06-04 00:00:00 Completed [facility] IPV 2003-06-04 00:00:00 Completed [facility] DTAP 2003-06-04 00:00:00 Completed [facility] HIB 3 Dose Schedule 2003-06-04 00:00:00 Completed [facility] Hep B, Adol or Pedi Dosage 2003-06-04 00:00:00 Completed [facility] MMR 2003-06-04 00:00:00 Completed [facility] Polio (IPV/OPV) 2003-06-04 00:00:00 Completed [facility] Varicella (varivax)(chicken pox) 2003-06-04 00:00:00 Completed [facility] DTaP, Unspecified Formulation 2003-06-04 00:00:00 Completed [facility] HIB 4 Dose Schedule 2003-06-04 00:00:00 Completed [facility] IPV 2003-06-04 00:00:00 Completed [facility] DTAP 2003-06-04 00:00:00 Completed [facility] HIB 3 Dose Schedule 2003-06-04 00:00:00 Completed [facility] Hep B, Adol or Pedi Dosage 2003-06-04 00:00:00 Completed [facility] MMR 2003-06-04 00:00:00 Completed [facility] Polio (IPV/OPV) 2003-06-04 00:00:00 Completed [facility] Varicella (varivax)(chicken pox) 2003-06-04 00:00:00 Completed [facility] DTaP, Unspecified Formulation 2003-06-04 00:00:00 Completed [facility] HIB 4 Dose Schedule 2003-06-04 00:00:00 Completed [facility] IPV 2003-06-04 00:00:00 Completed [facility] DTAP 2003-06-04 00:00:00 Completed [facility] HIB 3 Dose Schedule 2003-06-04 00:00:00 Completed [facility] Hep B, Adol or Pedi Dosage 2003-06-04 00:00:00 Completed [facility] MMR 2003-06-04 00:00:00 Completed [facility] Polio (IPV/OPV) 2003-06-04 00:00:00 Completed [facility] Varicella (varivax)(chicken pox) 2003-06-04 00:00:00 Completed [facility] DTaP, Unspecified Formulation 2003-06-04 00:00:00 Completed [facility] HIB 4 Dose Schedule 2003-06-04 00:00:00 Completed [facility] IPV 2003-06-04 00:00:00 Completed [facility] DTAP 2003-06-04 00:00:00 Completed [facility] HIB 3 Dose Schedule 2003-06-04 00:00:00 Completed [facility] Hep B, Adol or Pedi Dosage 2003-06-04 00:00:00 Completed [facility] MMR 2003-06-04 00:00:00 Completed [facility] Polio (IPV/OPV) 2003-06-04 00:00:00 Completed [facility] Varicella (varivax)(chicken pox) 2003-06-04 00:00:00 Completed [facility] DTaP, Unspecified Formulation 2003-06-04 00:00:00 Completed [facility] HIB 4 Dose Schedule 2003-06-04 00:00:00 Completed [facility] IPV 2003-06-04 00:00:00 Completed [facility] DTAP 2003-06-04 00:00:00 Completed [facility] HIB 3 Dose Schedule 2003-06-04 00:00:00 Completed [facility] Hep B, Adol or Pedi Dosage 2003-06-04 00:00:00 Completed [facility] MMR 2003-06-04 00:00:00 Completed [facility] Polio (IPV/OPV) 2003-06-04 00:00:00 Completed [facility] Varicella (varivax)(chicken pox) 2003-06-04 00:00:00 Completed [facility] DTaP, Unspecified Formulation 2003-06-04 00:00:00 Completed [facility] HIB 4 Dose Schedule 2003-06-04 00:00:00 Completed [facility] IPV 2003-06-04 00:00:00 Completed [facility] DTAP 2003-06-04 00:00:00 Completed [facility] HIB 3 Dose Schedule 2003-06-04 00:00:00 Completed [facility] Hep B, Adol or Pedi Dosage 2003-06-04 00:00:00 Completed [facility] MMR 2003-06-04 00:00:00 Completed [facility] Polio (IPV/OPV) 2003-06-04 00:00:00 Completed [facility] Varicella (varivax)(chicken pox) 2003-06-04 00:00:00 Completed [facility] DTaP, Unspecified Formulation 2003-06-04 00:00:00 Completed [facility] HIB 4 Dose Schedule 2003-06-04 00:00:00 Completed [facility] IPV 2003-06-04 00:00:00 Completed [facility] DTAP 2003-06-04 00:00:00 Completed [facility] HIB 3 Dose Schedule 2003-06-04 00:00:00 Completed [facility] Hep B, Adol or Pedi Dosage 2003-06-04 00:00:00 Completed [facility] MMR 2003-06-04 00:00:00 Completed [facility] Polio (IPV/OPV) 2003-06-04 00:00:00 Completed [facility] Varicella (varivax)(chicken pox) 2003-06-04 00:00:00 Completed [facility] DTaP, Unspecified Formulation 2003-06-04 00:00:00 Completed [facility] HIB 4 Dose Schedule 2003-06-04 00:00:00 Completed [facility] IPV 2003-06-04 00:00:00 Completed [facility] DTAP 2003-06-04 00:00:00 Completed [facility] HIB 3 Dose Schedule 2003-06-04 00:00:00 Completed [facility] Hep B, Adol or Pedi Dosage 2003-06-04 00:00:00 Completed [facility] MMR 2003-06-04 00:00:00 Completed [facility] Polio (IPV/OPV) 2003-06-04 00:00:00 Completed [facility] Varicella (varivax)(chicken pox) 2003-06-04 00:00:00 Completed [facility] DTaP, Unspecified Formulation 2003-06-04 00:00:00 Completed [facility] HIB 4 Dose Schedule 2003-06-04 00:00:00 Completed [facility] IPV 2003-06-04 00:00:00 Completed [facility] DTAP 2003-06-04 00:00:00 Completed [facility] HIB 3 Dose Schedule 2003-06-04 00:00:00 Completed [facility] Hep B, Adol or Pedi Dosage 2003-06-04 00:00:00 Completed [facility] MMR 2003-06-04 00:00:00 Completed [facility] Polio (IPV/OPV) 2003-06-04 00:00:00 Completed [facility] Varicella (varivax)(chicken pox) 2003-06-04 00:00:00 Completed [facility] DTaP, Unspecified Formulation 2003-06-04 00:00:00 Completed [facility] HIB 4 Dose Schedule 2003-06-04 00:00:00 Completed [facility] IPV 2003-06-04 00:00:00 Completed [facility] DTAP 2003-06-04 00:00:00 Completed [facility] HIB 3 Dose Schedule 2003-06-04 00:00:00 Completed [facility] Hep B, Adol or Pedi Dosage 2003-06-04 00:00:00 Completed [facility] MMR 2003-06-04 00:00:00 Completed [facility] Polio (IPV/OPV) 2003-06-04 00:00:00 Completed [facility] Varicella (varivax)(chicken pox) 2003-06-04 00:00:00 Completed [facility] DTaP, Unspecified Formulation 2003-06-04 00:00:00 Completed [facility] HIB 4 Dose Schedule 2003-06-04 00:00:00 Completed [facility] IPV 2003-06-04 00:00:00 Completed [facility] DTAP 2003-06-04 00:00:00 Completed [facility] HIB 3 Dose Schedule 2003-06-04 00:00:00 Completed [facility] Hep B, Adol or Pedi Dosage 2003-06-04 00:00:00 Completed [facility] MMR 2003-06-04 00:00:00 Completed [facility] Polio (IPV/OPV) 2003-06-04 00:00:00 Completed [facility] Varicella (varivax)(chicken pox) 2003-06-04 00:00:00 Completed [facility] DTaP, Unspecified Formulation 2003-06-04 00:00:00 Completed [facility] HIB 4 Dose Schedule 2003-06-04 00:00:00 Completed [facility] IPV 2003-06-04 00:00:00 Completed [facility] DTAP 2003-06-04 00:00:00 Completed [facility] HIB 3 Dose Schedule 2003-06-04 00:00:00 Completed [facility] Hep B, Adol or Pedi Dosage 2003-06-04 00:00:00 Completed [facility] MMR 2003-06-04 00:00:00 Completed [facility] Polio (IPV/OPV) 2003-06-04 00:00:00 Completed [facility] Varicella (varivax)(chicken pox) 2003-06-04 00:00:00 Completed [facility] DTaP, Unspecified Formulation 2003-06-04 00:00:00 Completed [facility] HIB 4 Dose Schedule 2003-06-04 00:00:00 Completed [facility] IPV 2003-06-04 00:00:00 Completed [facility] DTAP 2003-06-04 00:00:00 Completed [facility] HIB 3 Dose Schedule 2003-06-04 00:00:00 Completed [facility] Hep B, Adol or Pedi Dosage 2003-06-04 00:00:00 Completed [facility] MMR 2003-06-04 00:00:00 Completed [facility] Polio (IPV/OPV) 2003-06-04 00:00:00 Completed [facility] Varicella (varivax)(chicken pox) 2003-06-04 00:00:00 Completed [facility] DTaP, Unspecified Formulation 2003-06-04 00:00:00 Completed [facility] HIB 4 Dose Schedule 2003-06-04 00:00:00 Completed [facility] IPV 2003-06-04 00:00:00 Completed [facility] DTAP Unknown Completed [facility] HIB 3 Dose Schedule Unknown Completed [facility] Adult [facility], [facility]i [facility] Completed [facility] Meningococcal Vaccine Unknown Completed [facility] MMR Unknown Completed [facility] Pneumococcal 13 Conjugate, PCV13 (Prevnar 13) Unknown Completed [facility] Polio (IPV/OPV) Unknown Completed [facility] TDAP Unknown Completed [facility] Varicella (varivax)(chicken pox) Unknown Completed [facility] Meningococcal B, OMV Unknown Completed [facility] Influenza Virus Vaccine Quad .5 mL IM 6+ MO (FLUZONE/FLULAVAL/FL UARIX) Unknown Completed [facility] DTaP, Unspecified Formulation Unknown Completed [facility] HEPA,NOS Unknown Completed [facility] HEPATITIS A Unknown Completed [facility] HIB 4 Dose Schedule Unknown Completed [facility] Meningococcal Polysaccharide (groups A, C, Y and W-135) conjugate vaccine (MCV4P) Unknown Completed [facility] Pneumococcal 7 Conjugate, PCV7 (Prevnar7) Unknown Completed [facility] IPV Unknown Completed [facility] DTAP Unknown Completed [facility] HIB 3 Dose Schedule Unknown Completed [facility] Hepatitis A Adult [facility], Adol or Pedi Dosage Unknown Completed [facility] Meningococcal Vaccine Unknown Completed [facility] MMR Unknown Completed [facility] Pneumococcal 13 Conjugate, PCV13 (Prevnar 13) Unknown Completed [facility] Polio (IPV/OPV) Unknown Completed [facility] TDAP Unknown Completed [facility] Varicella (varivax)(chicken pox) Unknown Completed [facility] Meningococcal B, OMV Unknown Completed [facility] Influenza Virus Vaccine Quad .5 mL IM 6+ MO (FLUZONE/FLULAVAL/FL UARIX) Unknown Completed [facility] DTaP, Unspecified Formulation Unknown Completed [facility] HEPA,NOS Unknown Completed [facility] HEPATITIS A Unknown Completed [facility] HIB 4 Dose Schedule Unknown Completed [facility] Meningococcal Polysaccharide (groups A, C, Y and W-135) conjugate vaccine (MCV4P) Unknown Completed [facility] Pneumococcal 7 Conjugate, PCV7 (Prevnar7) Unknown Completed [facility] IPV Unknown Completed [facility] DTAP Unknown Completed [facility] HIB 3 Dose Schedule Unknown Completed [facility] Hepatitis A Adult Unknown [facility] B, Adol or Pedi Dosage Unknown Completed [facility] Meningococcal Vaccine Unknown Completed [facility] MMR Unknown Completed [facility] Pneumococcal 13 Conjugate, PCV13 (Prevnar 13) Unknown Completed [facility] Polio (IPV/OPV) Unknown Completed [facility] TDAP Unknown Completed [facility] Varicella (varivax)(chicken pox) Unknown Completed [facility] Meningococcal B, OMV Unknown Completed [facility] Influenza Virus Vaccine Quad .5 mL IM 6+ MO (FLUZONE/FLULAVAL/FL UARIX) Unknown Completed [facility] DTaP, Unspecified Formulation Unknown Completed [facility] HEPA,NOS Unknown Completed [facility] HEPATITIS A Unknown Completed [facility] HIB 4 Dose Schedule Unknown Completed [facility] Meningococcal Polysaccharide (groups A, C, Y and W-135) conjugate vaccine (MCV4P) Unknown Completed [facility] Pneumococcal 7 Conjugate, PCV7 (Prevnar7) Unknown Completed [facility] IPV Unknown Completed [facility] DTAP Unknown Completed [facility] HIB 3 Dose Schedule Unknown Completed [facility] Hepatitis A Adult Unknown Completed [facility] Hep B, Adol or Pedi Dosage Unknown Completed [facility] Meningococcal Vaccine Unknown Completed [facility] MMR Unknown Completed [facility] Pneumococcal 13 Conjugate, PCV13 (Prevnar 13) Unknown Completed [facility] Polio (IPV/OPV) Unknown Completed [facility] TDAP Unknown Completed [facility] Varicella (varivax)(chicken pox) Unknown Completed [facility] Meningococcal B, OMV Unknown Completed [facility] Influenza Virus Vaccine Quad .5 mL IM 6+ MO (FLUZONE/FLULAVAL/FL UARIX) Unknown Completed [facility] DTaP, Unspecified Formulation Unknown Completed [facility] HEPA,NOS Unknown Completed [facility] HEPATITIS A Unknown Completed [facility] HIB 4 Dose Schedule Unknown Completed [facility] Meningococcal Polysaccharide (groups A, C, Y and W-135) conjugate vaccine (MCV4P) Unknown Completed [facility] Pneumococcal 7 Conjugate, PCV7 (Prevnar7) Unknown Completed [facility] IPV Unknown Completed [facility] DTAP Unknown Completed [facility] HIB 3 Dose Schedule Unknown Completed [facility] Hepatitis A Adult Unknown [facility] B, Adol or Pedi Dosage Unknown Completed [facility] Meningococcal Vaccine Unknown Completed [facility] MMR Unknown Completed [facility] Pneumococcal 13 Conjugate, PCV13 (Prevnar 13) Unknown Completed [facility] Polio (IPV/OPV) Unknown Completed [facility] TDAP Unknown Completed [facility] Varicella (varivax)(chicken pox) Unknown Completed [facility] Meningococcal B, OMV Unknown Completed [facility] Influenza Virus Vaccine Quad .5 mL IM 6+ MO (FLUZONE/FLULAVAL/FL UARIX) Unknown Completed [facility] DTaP, Unspecified Formulation Unknown Completed [facility] HEPA,NOS Unknown Completed [facility] HEPATITIS A Unknown Completed [facility] HIB 4 Dose Schedule Unknown Completed [facility] Meningococcal Polysaccharide (groups A, C, Y and W-135) conjugate vaccine (MCV4P) Unknown Completed [facility] Pneumococcal 7 Conjugate, PCV7 (Prevnar7) Unknown Completed [facility] IPV Unknown Completed [facility] DTAP Unknown Completed [facility] HIB 3 Dose Schedule Unknown Completed [facility] Adult [facility], Adol or Pedi Dosage Unknown Completed [facility] Meningococcal Vaccine Unknown Completed [facility] MMR Unknown Completed [facility] Pneumococcal 13 Conjugate, PCV13 (Prevnar 13) Unknown Completed [facility] Polio (IPV/OPV) Unknown Completed [facility] TDAP Unknown Completed [facility] Varicella (varivax)(chicken pox) Unknown Completed [facility] Meningococcal B, OMV Unknown Completed [facility] Influenza Virus Vaccine Quad .5 mL IM 6+ MO (FLUZONE/FLULAVAL/FL UARIX) Unknown Completed [facility] DTaP, Unspecified Formulation Unknown Completed [facility] HEPA,NOS Unknown Completed [facility] HEPATITIS A Unknown Completed [facility] HIB 4 Dose Schedule Unknown Completed [facility] Meningococcal Polysaccharide (groups A, C, Y and W-135) conjugate vaccine (MCV4P) Unknown Completed [facility] Pneumococcal 7 Conjugate, PCV7 (Prevnar7) Unknown Completed [facility] IPV Unknown Completed [facility] Meningococcal Vaccine Unknown Completed [facility] Pneumococcal 13 Conjugate, PCV13 (Prevnar 13) Unknown Completed [facility] Meningococcal B, OMV Unknown Completed [facility] Influenza Virus Vaccine Quad .5 mL IM 6+ MO (FLUZONE/FLULAVAL/FL UARIX) Unknown Completed [facility] HEPA,NOS Unknown Completed [facility] HEPATITIS A Unknown Completed [facility] Meningococcal Polysaccharide (groups A, C, Y and W-135) conjugate vaccine (MCV4P) Unknown Completed [facility] Pneumococcal 7 Conjugate, PCV7 (Prevnar7) Unknown Completed [facility] DTAP Unknown Completed [facility] HIB 3 Dose Schedule Unknown Completed [facility]atitis A Adult [facility], Adol or Pedi Dosage Unknown Completed [facility] MMR Unknown Completed [facility] Polio (IPV/OPV) Unknown [facility] Unknown Completed [facility] Varicella (varivax)(chicken pox) Unknown Completed [facility] DTaP, Unspecified Formulation Unknown Completed [facility] HIB 4 Dose Schedule Unknown Completed [facility] IPV Unknown Completed [facility] Meningococcal Vaccine Unknown Completed [facility] Pneumococcal 13 Conjugate, PCV13 (Prevnar 13) Unknown Completed [facility] Meningococcal B, OMV Unknown Completed [facility] Influenza Virus Vaccine Quad .5 mL IM 6+ MO (FLUZONE/FLULAVAL/FL UARIX) Unknown Completed [facility] HEPA,NOS Unknown Completed [facility] HEPATITIS A Unknown Completed [facility] Meningococcal Polysaccharide (groups A, C, Y and W-135) conjugate vaccine (MCV4P) Unknown Completed [facility] Pneumococcal 7 Conjugate, PCV7 (Prevnar7) Unknown Completed [facility] DTAP Unknown Completed [facility] HIB 3 Dose Schedule Unknown Completed [facility] Hepatitis A Adult Unknown [facility], Adol or Pedi Dosage Unknown Completed [facility] MMR Unknown Completed [facility] Polio (IPV/OPV) Unknown Completed [facility] TDAP Unknown Completed [facility] Varicella (varivax)(chicken pox) Unknown Completed [facility] DTaP, Unspecified Formulation Unknown Completed [facility] HIB 4 Dose Schedule Unknown Completed [facility] IPV Unknown Completed [facility] DTAP Unknown Completed [facility] HIB 3 Dose Schedule Unknown Completed [facility] Hepatitis A Adult Unknown [facility] B, Adol or Pedi Dosage Unknown Completed [facility] Meningococcal Vaccine Unknown Completed [facility] MMR Unknown Completed [facility] Pneumococcal 13 Conjugate, PCV13 (Prevnar 13) Unknown Completed [facility] Polio (IPV/OPV) Unknown Completed [facility] TDAP Unknown Completed [facility] Varicella (varivax)(chicken pox) Unknown Completed [facility] Meningococcal B, OMV Unknown Completed [facility] Influenza Virus Vaccine Quad .5 mL IM 6+ MO (FLUZONE/FLULAVAL/FL UARIX) Unknown Completed [facility] DTaP, Unspecified Formulation Unknown Completed [facility] HEPA,NOS Unknown Completed [facility] HEPATITIS A Unknown Completed [facility] HIB 4 Dose Schedule Unknown Completed [facility] Meningococcal Polysaccharide (groups A, C, Y and W-135) conjugate vaccine (MCV4P) Unknown Completed [facility] Pneumococcal 7 Conjugate, PCV7 (Prevnar7) Unknown Completed [facility] IPV Unknown Completed [facility] DTAP Unknown Completed [facility] HIB 3 Dose Schedule Unknown Completed [facility] Hepatitis A Adult Unknown [facility] B, Adol or Pedi Dosage Unknown Completed [facility] Meningococcal Vaccine Unknown Completed [facility] MMR Unknown Completed [facility] Pneumococcal 13 Conjugate, PCV13 (Prevnar 13) Unknown Completed [facility] Polio (IPV/OPV) Unknown Completed [facility] TDAP Unknown Completed [facility] Varicella (varivax)(chicken pox) Unknown Completed [facility] Meningococcal B, OMV Unknown Completed [facility] Influenza Virus Vaccine Quad .5 mL IM 6+ MO (FLUZONE/FLULAVAL/FL UARIX) Unknown Completed [facility] DTaP, Unspecified Formulation Unknown Completed [facility] HEPA,NOS Unknown Completed [facility] HEPATITIS A Unknown Completed [facility] HIB 4 Dose Schedule Unknown Completed [facility] Meningococcal Polysaccharide (groups A, C, Y and W-135) conjugate vaccine (MCV4P) Unknown Completed [facility] Pneumococcal 7 Conjugate, PCV7 (Prevnar7) Unknown Completed [facility] IPV Unknown Completed [facility] DTAP Unknown Completed [facility] HIB 3 Dose Schedule Unknown Completed [facility] Hepatitis A Adult Unknown [facility] B, Adol or Pedi Dosage Unknown Completed [facility] Meningococcal Vaccine Unknown Completed [facility] MMR Unknown Completed [facility] Pneumococcal 13 Conjugate, PCV13 (Prevnar 13) Unknown Completed [facility] Polio (IPV/OPV) Unknown [facility] TDAP Unknown Completed [facility] Varicella (varivax)(chicken pox) Unknown Completed [facility] Meningococcal B, OMV Unknown Completed [facility] Influenza Virus Vaccine Quad .5 mL IM 6+ MO (FLUZONE/FLULAVAL/FL UARIX) Unknown Completed [facility] DTaP, Unspecified Formulation Unknown Completed [facility] HEPA,NOS Unknown Completed [facility] HEPATITIS A Unknown Completed [facility] HIB 4 Dose Schedule Unknown Completed [facility] Meningococcal Polysaccharide (groups A, C, Y and W-135) conjugate vaccine (MCV4P) Unknown Completed [facility] Pneumococcal 7 Conjugate, PCV7 (Prevnar7) Unknown Completed [facility] IPV Unknown Completed [facility] DTAP Unknown Completed [facility] HIB 3 Dose Schedule Unknown Completed [facility] Hepatitis A Adult Unknown [facility] B, Adol or Pedi Dosage Unknown Completed [facility] Meningococcal Vaccine Unknown Completed [facility] MMR Unknown Completed [facility] Pneumococcal 13 Conjugate, PCV13 (Prevnar 13) Unknown Completed [facility] Polio (IPV/OPV) Unknown Completed [facility] TDAP Unknown Completed [facility] Varicella (varivax)(chicken pox) Unknown Completed [facility] Meningococcal B, OMV Unknown Completed [facility] Influenza Virus Vaccine Quad .5 mL IM 6+ MO (FLUZONE/FLULAVAL/FL UARIX) Unknown Completed [facility] DTaP, Unspecified Formulation Unknown Completed [facility] HEPA,NOS Unknown Completed [facility] HEPATITIS A Unknown Completed [facility] HIB 4 Dose Schedule Unknown Completed [facility] Meningococcal Polysaccharide (groups A, C, Y and W-135) conjugate vaccine (MCV4P) Unknown Completed [facility] Pneumococcal 7 Conjugate, PCV7 (Prevnar7) Unknown Completed [facility] IPV Unknown Completed [facility] DTAP Unknown Completed [facility] HIB 3 Dose Schedule Unknown Completed [facility] Hepatitis A Adult Unknown Completed Un [facility] Hep B, Adol or Pedi Dosage Unknown Completed [facility] Meningococcal Vaccine Unknown Completed [facility] MMR Unknown Completed [facility] Pneumococcal 13 Conjugate, PCV13 (Prevnar 13) Unknown Completed [facility] Polio (IPV/OPV) Unknown Completed [facility] TDAP Unknown Completed [facility] Varicella (varivax)(chicken pox) Unknown Completed [facility] Meningococcal B, OMV Unknown Completed [facility] Influenza Virus Vaccine Quad .5 mL IM 6+ MO (FLUZONE/FLULAVAL/FL UARIX) Unknown Completed [facility] DTaP, Unspecified Formulation Unknown Completed [facility] HEPA,NOS Unknown Completed [facility] HEPATITIS A Unknown Completed [facility] HIB 4 Dose Schedule Unknown Completed [facility] Meningococcal Polysaccharide (groups A, C, Y and W-135) conjugate vaccine (MCV4P) Unknown Completed [facility] Pneumococcal 7 Conjugate, PCV7 (Prevnar7) Unknown Completed [facility] IPV Unknown Completed [facility] DTAP Unknown Completed [facility] HIB 3 Dose Schedule Unknown Completed [facility] Hepatitis A Adult [facility], Adol or Pedi Dosage Unknown Completed [facility] Meningococcal Vaccine Unknown Completed [facility] MMR Unknown Completed [facility] Pneumococcal 13 Conjugate, PCV13 (Prevnar 13) Unknown Completed [facility] Polio (IPV/OPV) Unknown Completed [facility] TDAP Unknown Completed [facility] Varicella (varivax)(chicken pox) Unknown Completed [facility] Meningococcal B, OMV Unknown Completed [facility] Influenza Virus Vaccine Quad .5 mL IM 6+ MO (FLUZONE/FLULAVAL/FL UARIX) Unknown Completed [facility] DTaP, Unspecified Formulation Unknown Completed [facility] HEPA,NOS Unknown Completed [facility] HEPATITIS A Unknown Completed [facility] HIB 4 Dose Schedule Unknown Completed [facility] Meningococcal Polysaccharide (groups A, C, Y and W-135) conjugate vaccine (MCV4P) Unknown Completed [facility] Pneumococcal 7 Conjugate, PCV7 (Prevnar7) Unknown Completed [facility] IPV Unknown Completed [facility] DTAP Unknown Completed [facility] HIB 3 Dose Schedule Unknown Completed [facility] Hepatitis A Adult Unknown [facility] B, Adol or Pedi Dosage Unknown Completed [facility] Meningococcal Vaccine Unknown Completed [facility] MMR Unknown Completed [facility] Pneumococcal 13 Conjugate, PCV13 (Prevnar 13) Unknown Completed [facility] Polio (IPV/OPV) Unknown Completed [facility] TDAP Unknown Completed [facility] Varicella (varivax)(chicken pox) Unknown Completed [facility] Meningococcal B, OMV Unknown Completed [facility] Influenza Virus Vaccine Quad .5 mL IM 6+ MO (FLUZONE/FLULAVAL/FL UARIX) Unknown Completed [facility] DTaP, Unspecified Formulation Unknown Completed [facility] HEPA,NOS Unknown Completed [facility] HEPATITIS A Unknown Completed [facility] HIB 4 Dose Schedule Unknown Completed [facility] Meningococcal Polysaccharide (groups A, C, Y and W-135) conjugate vaccine (MCV4P) Unknown Completed [facility] Pneumococcal 7 Conjugate, PCV7 (Prevnar7) Unknown Completed [facility] IPV Unknown Completed [facility] DTAP Unknown Completed [facility] HIB 3 Dose Schedule Unknown Completed [facility] Hepatitis A Adult Unknown [facility] B, Adol or Pedi Dosage Unknown Completed [facility] Meningococcal Vaccine Unknown Completed [facility] MMR Unknown Completed [facility] Pneumococcal 13 Conjugate, PCV13 (Prevnar 13) Unknown Completed [facility] Polio (IPV/OPV) Unknown Completed [facility] TDAP Unknown Completed [facility] Varicella (varivax)(chicken pox) Unknown Completed [facility] Meningococcal B, OMV Unknown Completed [facility] Influenza Virus Vaccine Quad .5 mL IM 6+ MO (FLUZONE/FLULAVAL/FL UARIX) Unknown Completed [facility] DTaP, Unspecified Formulation Unknown Completed [facility] HEPA,NOS Unknown Completed [facility] HEPATITIS A Unknown Completed [facility] HIB 4 Dose Schedule Unknown Completed [facility] Meningococcal Polysaccharide (groups A, C, Y and W-135) conjugate vaccine (MCV4P) Unknown Completed [facility] Pneumococcal 7 Conjugate, PCV7 (Prevnar7) Unknown Completed [facility] IPV Unknown Completed [facility] DTAP Unknown Completed [facility] HIB 3 Dose Schedule Unknown Completed [facility] Hepatitis A Adult [facility] B, Adol or Pedi Dosage Unknown Completed [facility] Meningococcal Vaccine Unknown Completed [facility] MMR Unknown Completed [facility] Pneumococcal 13 Conjugate, PCV13 (Prevnar 13) Unknown Completed [facility] Polio (IPV/OPV) Unknown Completed [facility] TDAP Unknown Completed [facility] Varicella (varivax)(chicken pox) Unknown Completed [facility] Meningococcal B, OMV Unknown Completed [facility] Influenza Virus Vaccine Quad .5 mL IM 6+ MO (FLUZONE/FLULAVAL/FL UARIX) Unknown Completed [facility] DTaP, Unspecified Formulation Unknown Completed [facility] HEPA,NOS Unknown Completed [facility] HEPATITIS A Unknown Completed [facility] HIB 4 Dose Schedule Unknown Completed [facility] Meningococcal Polysaccharide (groups A, C, Y and W-135) conjugate vaccine (MCV4P) Unknown Completed [facility] Pneumococcal 7 Conjugate, PCV7 (Prevnar7) Unknown Completed [facility] IPV Unknown Completed [facility] DTAP Unknown Completed [facility] HIB 3 Dose Schedule Unknown Completed [facility] Hepatitis A Adult Unknown [facility] B, Adol or Pedi Dosage Unknown Completed [facility] Meningococcal Vaccine Unknown Completed [facility] MMR Unknown Completed [facility] Pneumococcal 13 Conjugate, PCV13 (Prevnar 13) Unknown Completed [facility] Polio (IPV/OPV) Unknown Completed [facility] TDAP Unknown Completed [facility] Varicella (varivax)(chicken pox) Unknown Completed [facility] Meningococcal B, OMV Unknown Completed [facility] Influenza Virus Vaccine Quad .5 mL IM 6+ MO (FLUZONE/FLULAVAL/FL UARIX) Unknown Completed [facility] DTaP, Unspecified Formulation Unknown Completed [facility] HEPA,NOS Unknown Completed [facility] HEPATITIS A Unknown Completed [facility] HIB 4 Dose Schedule Unknown Completed [facility] Meningococcal Polysaccharide (groups A, C, Y and W-135) conjugate vaccine (MCV4P) Unknown Completed [facility] Pneumococcal 7 Conjugate, PCV7 (Prevnar7) Unknown Completed [facility] IPV Unknown Completed [facility] DTAP Unknown Completed [facility] HIB 3 Dose Schedule Unknown Completed [facility] Hepatitis A Adult Unknown [facility] B, Adol or Pedi Dosage Unknown Completed [facility] Meningococcal Vaccine Unknown Completed [facility] MMR Unknown Completed [facility] Pneumococcal 13 Conjugate, PCV13 (Prevnar 13) Unknown Completed [facility] Polio (IPV/OPV) Unknown Completed [facility] TDAP Unknown Completed [facility] Varicella (varivax)(chicken pox) Unknown Completed [facility] Meningococcal B, OMV Unknown Completed [facility] Influenza Virus Vaccine Quad .5 mL IM 6+ MO (FLUZONE/FLULAVAL/FL UARIX) Unknown Completed [facility] DTaP, Unspecified Formulation Unknown Completed [facility] HEPA,NOS Unknown Completed [facility] HEPATITIS A Unknown Completed [facility] HIB 4 Dose Schedule Unknown Completed [facility] Meningococcal Polysaccharide (groups A, C, Y and W-135) conjugate vaccine (MCV4P) Unknown Completed [facility] Pneumococcal 7 Conjugate, PCV7 (Prevnar7) Unknown Completed [facility] IPV Unknown Completed [facility] Vital Signs Vital Name Observation Time Observation Value Comments S ource Systolic blood pressure 2023-11-02 13:15:00 111 mm[Hg] [facility] Diastolic blood pressure 2023-11-02 13:15:00 72 mm[Hg] [facility] Heart rate 2023-11-02 13:15:00 78 /min [facility] Body temperature 2023-11-02 13:15:00 36.78 Nabila [facility] Body height 2023-11-02 13:15:00 170.2 cm [facility] Body weight 2023-11-02 13:15:00 84.823 kg [facility] BMI 2023-11-02 13:15:00 29.29 kg/m2 [facility] Oxygen saturation in Arterial blood by Pulse oximetry 2023-11-02 13:15:00 100 /min [facility] Systolic blood pressure 2023-09-21 14:11:00 131 mm[Hg] [facility] Diastolic blood pressure 2023-09-21 14:11:00 84 mm[Hg] [facility] Heart rate 2023-09-21 14:11:00 98 /min [facility] Body temperature 2023-09-21 14:11:00 36.33 Nabila [facility] Respiratory rate 2023-09-21 14:11:00 18 /min [facility] Body height 2023-09-21 14:11:00 170.2 cm [facility] Body weight 2023-09-21 14:11:00 89.994 kg [facility] BMI 2023-09-21 14:11:00 31.07 kg/m2 [facility] Systolic blood pressure 2023-09-17 09:00:00 131 mm[Hg] [facility] Diastolic blood pressure 2023-09-17 09:00:00 82 mm[Hg] [facility] Heart rate 2023-09-17 09:00:00 91 /min [facility] Body temperature 2023-09-17 09:00:00 36.78 Nabila [facility] Respiratory rate 2023-09-17 09:00:00 16 /min [facility] Oxygen saturation in Arterial blood by Pulse oximetry 2023-09-17 09:00:00 100 /min [facility] Body height 2023-09-17 07:15:00 170.2 cm [facility] Body weight 2023-09-17 07:15:00 86.183 kg [facility] BMI 2023-09-17 07:15:00 29.76 kg/m2 [facility] Heart rate 2023-08-27 03:19:00 70 /min [facility] Body temperature 2023-08-27 03:19:00 36.83 Nabila [facility] Respiratory rate 2023-08-27 03:19:00 16 /min [facility] Oxygen saturation in Arterial blood by Pulse oximetry 2023-08-27 03:19:00 98 /min [facility] Systolic blood pressure 2023-08-27 03:00:00 120 mm[Hg] [facility] Diastolic blood pressure 2023-08-27 03:00:00 76 mm[Hg] [facility] Body height 2023-08-27 01:44:00 [facility]2 [facility] Body weight 2023-08-27 01:44:00 86.183 [facility] BMI 2023-08-27 01:44:00 29.76 kg/m2 [facility] Systolic blood pressure 2023-08-24 12:23:00 128 mm[Hg] [facility] Diastolic blood pressure 2023-08-24 12:23:00 88 mm[Hg] [facility] Heart rate 2023-08-24 12:23:00 81 /min [facility] Body temperature 2023-08-24 12:23:00 36.33 Nabila [facility] Respiratory rate 2023-08-24 12:23:00 18 /min [facility] Body height 2023-08-24 12:23:00 167.6 cm [facility] 2023-08-24 12:23:00 86.456 kg [facility] BMI 2023-08-24 12:23:00 30.76 kg/m2 [facility] Systolic blood pressure 2023-08-10 18:38:00 137 mm[Hg] [facility] Diastolic blood pressure 2023-08-10 18:38:00 86 mm[Hg] [facility] Heart rate 2023-08-10 18:38:00 93 /min [facility] Body temperature 2023-08-10 18:38:00 35.39 Nabila [facility] Respiratory rate 2023-08-10 18:38:00 18 /min [facility] Body height 2023-08-10 18:38:00 167.6 cm [facility] Body weight 2023-08-10 18:38:00 85.73 kg [facility] BMI 2023-08-10 18:38:00 30.51 kg/m2 [facility] Systolic blood pressure 2023-02-08 22:19:00 135 mm[Hg] [facility] Diastolic blood pressure 2023-02-08 22:19:00 85 mm[Hg] [facility] Heart rate 2023-02-08 22:14:00 91 /min [facility] Body temperature 2023-02-08 22:14:00 36.39 Nabila [facility] Respiratory rate 2023-02-08 22:14:00 18 /min [facility] Body height 2023-02-08 22:14:00 167.6 cm [facility] Body weight 2023-02-08 22:14:00 78.382 kg [facility] BMI 2023-02-08 22:14:00 27.89 kg/m2 [facility] Systolic blood pressure 2022-08-12 15:38:00 123 mm[Hg] [facility] Diastolic blood pressure 2022-08-12 15:38:00 81 mm[Hg] [facility] Heart rate 2022-08-12 15:38:00 92 /min [facility] Body temperature 2022-08-12 15:38:00 35.83 Nabila [facility] Respiratory rate 2022-08-12 15:38:00 18 /min [facility] Body height 2022-08-12 15:38:00 167.6 cm [facility] Body weight 2022-08-12 15:38:00 80.377 kg [facility] BMI 2022-08-12 15:38:00 28.60 kg/m2 [facility] Systolic blood pressure 2022-08-01 15:20:00 134 mm[Hg] [facility] Diastolic blood pressure 2022-08-01 15:20:00 90 mm[Hg] [facility] Respiratory rate 2022-08-01 14:55:00 17 /min [facility] Body height 2022-08-01 14:55:00 167.6 cm [facility] Body weight 2022-08-01 14:55:00 81.874 kg [facility] BMI 2022-08-01 14:55:00 29.13 kg/m2 [facility] Heart rate 2022-08-01 14:55:00 91 /min [facility] Body temperature 2022-08-01 14:55:00 36.5 Nabila [facility] Systolic blood pressure 2022-07-29 16:00:00 131 mm[Hg] [facility] Diastolic blood pressure 2022-07-29 16:00:00 77 mm[Hg] [facility] Respiratory rate 2022-07-29 15:56:00 18 /min [facility] Heart rate 2022-07-29 12:15:00 112 /min [facility] Oxygen saturation in Arterial blood by Pulse oximetry 2022-07-29 12:15:00 96 /min [facility] Body temperature 2022-07-29 10:00:00 36.89 Nabila [facility] Body height 2022-07-29 03:10:00 [facility].6 cm [facility] Body weight 2022-07-29 03:10:00 83.643 kg [facility] BMI 2022-07-29 03:10:00 29.76 kg/m2 [facility] Systolic blood pressure 2022-07-25 13:45:00 140 mm[Hg] [facility] Diastolic blood pressure 2022-07-25 13:45:00 97 mm[Hg] [facility] Heart rate 2022-07-25 12:15:00 92 /min [facility] Body temperature 2022-07-25 12:15:00 36.67 Nabila [facility] Respiratory rate 2022-07-25 12:15:00 18 /min [facility] Oxygen saturation in Arterial blood by Pulse oximetry 2022-07-25 12:15:00 100 /min [facility] Body height 2022-07-24 14:30:00 167.6 cm [facility] Systolic blood pressure 2022-07-23 18:30:00 130 mm[Hg] [facility] Diastolic blood pressure 2022-07-23 18:30:00 84 mm[Hg] [facility] Heart rate 2022-07-23 18:30:00 115 /min [facility] Body temperature 2022-07-23 18:30:00 36.94 Nabila [facility] Respiratory rate 2022-07-23 18:30:00 18 /min [facility] Oxygen saturation in Arterial blood by Pulse oximetry 2022-07-23 18:30:00 99 /min [facility] Body height 2022-07-21 15:36:00 167.6 cm [facility] Body weight 2022-07-21 15:36:00 89.359 kg [facility] BMI 2022-07-21 15:36:00 31.80 kg/m2 [facility] Systolic blood pressure 2022-07-21 18:00:00 131 mm[Hg] [facility] Diastolic blood pressure 2022-07-21 18:00:00 84 mm[Hg] [facility] Heart rate 2022-07-21 18:00:00 104 /min [facility] Body temperature 2022-07-21 18:00:00 36.56 Nabila [facility] Respiratory rate 2022-07-21 18:00:00 18 /min [facility] Oxygen saturation in Arterial blood by Pulse oximetry 2022-07-21 18:00:00 100 /min [facility] Body height 2022-07-21 15:36:00 167.6 cm [facility] Body weight 2022-07-21 15:36:00 89.359 kg [facility] BMI 2022-07-21 15:36:00 31.80 kg/m2 [facility] Systolic blood pressure 2022-07-17 17:09:00 103 mm[Hg] [facility] Diastolic blood pressure 2022-07-17 17:09:00 51 mm[Hg] [facility] Heart rate 2022-07-17 17:09:00 82 /min [facility] Body temperature 2022-07-17 17:09:00 36.56 Nabila [facility] Respiratory rate 2022-07-17 17:09:00 16 /min [facility] Oxygen saturation in Arterial blood by Pulse oximetry 2022-07-17 17:09:00 99 /min [facility] Body height 2022-07-17 15:58:00 167.6 cm 5' 6" [facility] Body weight 2022-07-17 15:58:00 87.816 kg 193.6lb [facility] BMI 2022-07-17 15:58:00 31.25 kg/m2 [facility] Systolic blood pressure 2022-07-11 06:00:00 121 mm[Hg] [facility] Diastolic blood pressure 2022-07-11 06:00:00 68 mm[Hg] [facility] Heart rate 2022-07-11 06:00:00 100 /min [facility] Oxygen saturation in Arterial blood by Pulse oximetry 2022-07-11 06:00:00 99 /min [facility] Body temperature 2022-07-11 04:00:00 36.78 Nabila [facility] Respiratory rate 2022-07-11 04:00:00 18 /min [facility] Body height 2022-07-11 04:00:00 167.6 cm [facility] Body weight 2022-07-11 04:00:00 89.313 [facility] BMI 2022-07-11 04:00:00 31.78 kg/m2 [facility] Systolic blood pressure 2022-07-08 19:21:00 133 mm[Hg] [facility] Diastolic blood pressure 2022-07-08 19:21:00 79 mm[Hg] [facility] Heart rate 2022-07-08 19:21:00 94 /min [facility] Body temperature 2022-07-08 19:21:00 36.22 Nabila [facility] Respiratory rate 2022-07-08 19:21:00 18 /min [facility] Body height 2022-07-08 19:21:00 167.6 cm [facility] Body weight 2022-07-08 19:21:00 86.909 kg [facility] BMI 2022-07-08 19:21:00 30.93 kg/m2 [facility] Heart rate 2022-07-06 09:15:00 96 /min [facility] Oxygen saturation in Arterial blood by Pulse oximetry 2022-07-06 09:15:00 99 /min [facility] Systolic blood pressure 2022-07-06 05:20:00 121 mm[Hg] [facility] Diastolic blood pressure 2022-07-06 05:20:00 70 mm[Hg] [facility] Body temperature 2022-07-06 05:20:00 37.06 Nabila [facility] Body height 2022-07-06 05:20:00 167.6 cm [facility] Body weight 2022-07-06 05:20:00 86.637 kg [facility] BMI 2022-07-06 05:20:00 30.83 kg/m2 [facility] Respiratory rate 2022-07-06 05:01:00 16 /min [facility] Systolic blood pressure 2022-06-23 19:46:00 135 mm[Hg] [facility] Diastolic blood pressure 2022-06-23 19:46:00 85 mm[Hg] [facility] Heart rate 2022-06-23 19:46:00 102 /min [facility] Body temperature 2022-06-23 19:46:00 36.11 Nabila [facility] Respiratory rate 2022-06-23 19:46:00 18 /min [facility] Body height 2022-06-23 19:46:00 167.6 cm [facility] Body weight 2022-06-23 19:46:00 85.004 kg [facility] BMI 2022-06-23 19:46:00 30.25 kg/m2 [facility] Systolic blood pressure 2022-06-09 18:04:00 110 mm[Hg] [facility] Diastolic blood pressure 2022-06-09 18:04:00 60 mm[Hg] [facility] Heart rate 2022-06-09 17:59:00 112 /min [facility] Body temperature 2022-06-09 17:57:00 36.28 Nabila [facility] Respiratory rate 2022-06-09 17:57:00 18 /min [facility] Body height 2022-06-09 17:57:00 170.2 cm [facility] Body weight 2022-06-09 17:57:00 85.911 kg [facility] BMI 2022-06-09 17:57:00 29.66 kg/m2 [facility] Body temperature 2022-06-02 15:34:00 36.72 Nabila [facility] Body weight 2022-06-02 15:34:00 85.73 kg [facility] BMI 2022-06-02 15:34:00 30.51 kg/m2 [facility] Systolic blood pressure 2022-05-26 15:34:00 111 mm[Hg] [facility] Diastolic blood pressure 2022-05-26 15:34:00 71 mm[Hg] [facility] Heart rate 2022-05-26 15:34:00 87 /min [facility] Body temperature 2022-05-26 15:34:00 36.33 Nabila [facility] Respiratory rate 2022-05-26 15:34:00 18 /min [facility] Body height 2022-05-26 15:34:00 167.6 cm [facility] Body weight 2022-05-26 15:34:00 85.73 kg [facility] BMI 2022-05-26 15:34:00 30.51 kg/m2 [facility] Body temperature 2022-05-19 15:46:00 36.17 Nabila [facility] Body weight 2022-05-19 15:46:00 85.095 kg [facility] BMI 2022-05-19 15:46:00 30.28 [facility]m2 [facility] Systolic blood pressure 2022-05-12 20:15:00 122 mm[Hg] [facility] Diastolic blood pressure 2022-05-12 20:15:00 67 mm[Hg] [facility] Heart rate 2022-05-12 20:15:00 85 /min [facility] Body temperature 2022-05-12 20:15:00 35.83 Nabila [facility] Respiratory rate 2022-05-12 20:15:00 18 /min [facility] Body height 2022-05-12 20:15:00 167.6 cm [facility] Body weight 2022-05-12 20:15:00 83.961 kg [facility] BMI 2022-05-12 20:15:00 29.88 kg/m2 [facility] Body temperature 2022-05-05 16:37:00 36.56 Nabila [facility] Body weight 2022-05-05 16:37:00 83.553 kg [facility] Systolic blood pressure 2022-04-28 17:19:00 128 mm[Hg] [facility] Diastolic blood pressure 2022-04-28 17:19:00 73 mm[Hg] [facility] Heart rate 2022-04-28 17:19:00 87 /min [facility] Body temperature 2022-04-28 17:19:00 37.06 Nabila [facility] Respiratory rate 2022-04-28 17:19:00 18 /min [facility] Body weight 2022-04-28 17:19:00 82.736 kg [facility] Body temperature 2022-04-21 16:16:00 36.61 Nabila [facility] Body weight 2022-04-21 16:16:00 81.421 kg [facility] BMI 2022-04-21 16:16:00 28.97 kg/m2 [facility] Systolic blood pressure 2022-04-14 16:55:00 119 mm[Hg] [facility] Diastolic blood pressure 2022-04-14 16:55:00 72 mm[Hg] [facility] Heart rate 2022-04-14 16:55:00 75 /min [facility] Body temperature 2022-04-14 16:55:00 36.78 Nabila [facility] Respiratory rate 2022-04-14 16:55:00 16 /min [facility] Body height 2022-04-14 16:55:00 167.6 cm [facility] Body weight 2022-04-14 16:55:00 79.742 kg [facility] BMI 2022-04-14 16:55:00 28.37 kg/m2 [facility] Systolic blood pressure 2022-04-07 19:07:00 122 mm[Hg] [facility] Diastolic blood pressure 2022-04-07 19:07:00 76 mm[Hg] [facility] Heart rate 2022-04-07 19:07:00 95 /min [facility] Body temperature 2022-04-07 19:07:00 37.06 Nabila [facility] Respiratory rate 2022-04-07 19:07:00 20 /min [facility] Body weight 2022-04-07 19:07:00 78.835 [facility] Systolic blood pressure 2022-03-31 15:59:00 118 mm[Hg] [place] [facility] Diastolic blood pressure 2022-03-31 15:59:00 76 mm[Hg] [facility] Heart rate 2022-03-31 15:59:00 82 /min [facility] Body temperature 2022-03-31 15:59:00 37.11 [facility] Respiratory rate 2022-03-31 15:59:00 18 /min [facility] Body height 2022-03-31 15:59:00 167.6 cm [facility] Body weight 2022-03-31 15:59:00 76.885 [facility] BMI 2022-03-31 15:59:00 27.36 kg/m2 [facility] Body temperature 2022-03-24 15:55:00 36.61 Nabila [facility] Respiratory rate 2022-03-24 15:55:00 18 /min [facility] Body weight 2022-03-24 15:55:00 75.796 kg [facility] Systolic blood pressure 2022-03-10 17:15:00 116 mm[Hg] [facility] Diastolic blood pressure 2022-03-10 17:15:00 74 mm[Hg] [facility] Heart rate 2022-03-10 17:15:00 77 /min [facility] Body temperature 2022-03-10 17:15:00 36.94 Nabila [facility] Respiratory rate 2022-03-10 17:15:00 20 /min [facility] Body height 2022-03-10 17:15:00 167.6 cm [facility] Body weight 2022-03-10 17:15:00 72.938 kg [facility] BMI 2022-03-10 17:15:00 25.95 kg/m2 [facility] Systolic blood pressure 2022-02-24 16:18:00 109 mm[Hg] [facility] Diastolic blood pressure 2022-02-24 16:18:00 68 mm[Hg] [facility] Heart rate 2022-02-24 16:18:00 83 /min [facility] Body temperature 2022-02-24 16:18:00 36.44 Nabila [facility] Respiratory rate 2022-02-24 16:18:00 18 /min [facility] Body height 2022-02-24 16:18:00 167.6 cm [facility] Body weight 2022-02-24 16:18:00 69.673 kg [facility] BMI 2022-02-24 16:18:00 24.79 kg/m2 [facility] Systolic blood pressure 2022-02-10 19:32:00 135 mm[Hg] [facility] Diastolic blood pressure 2022-02-10 19:32:00 90 mm[Hg] [facility] Heart rate 2022-02-10 19:32:00 130 /min [facility] Body temperature 2022-02-10 19:32:00 36.89 Nabila [facility] Respiratory rate 2022-02-10 19:32:00 20 /min [facility] Body height 2022-02-10 19:32:00 167.6 cm [facility] Body weight 2022-02-10 19:32:00 71.215 kg [facility] BMI 2022-02-10 19:32:00 25.34 kg/m2 [facility] Systolic blood pressure 2022-01-27 15:32:00 127 mm[Hg] [facility] Diastolic blood pressure 2022-01-27 15:32:00 77 mm[Hg] [facility] Heart rate 2022-01-27 15:32:00 99 /min [facility] Body temperature 2022-01-27 15:32:00 36.22 Nabila [facility] Respiratory rate 2022-01-27 15:32:00 20 /min [facility] Body height 2022-01-27 15:32:00 167.6 cm [facility] Body weight 2022-01-27 15:32:00 70.988 kg [facility] BMI 2022-01-27 15:32:00 25.26 kg/m2 [facility] Systolic blood pressure 2021-12-23 14:24:00 118 mm[Hg] [facility] Diastolic blood pressure 2021-12-23 14:24:00 77 mm[Hg] [facility] Heart rate 2021-12-23 14:24:00 87 /min [facility] Body temperature 2021-12-23 14:24:00 37 Nabila [facility] Respiratory rate 2021-12-23 14:24:00 18 /min [facility] Body height 2021-12-23 14:24:00 167.6 cm [facility] Body weight 2021-12-23 14:24:00 70.761 kg [facility] BMI 2021-12-23 14:24:00 25.18 kg/m2 [facility] Systolic blood pressure 2021-12-09 14:24:00 118 mm[Hg] [facility] Diastolic blood pressure 2021-12-09 14:24:00 79 mm[Hg] [facility] Heart rate 2021-12-09 14:24:00 88 /min [facility] Body temperature 2021-12-09 14:24:00 36.67 Nabila [facility] Respiratory rate 2021-12-09 14:24:00 16 /min [facility] Body height 2021-12-09 14:24:00 167.6 cm [facility] Body weight 2021-12-09 14:24:00 72.53 kg [facility] BMI 2021-12-09 14:24:00 25.81 kg/m2 [facility] Oxygen saturation in Arterial blood by Pulse oximetry 2021-12-09 14:24:00 97 /min [facility] Systolic blood pressure 2021-10-12 18:17:00 124 mm[Hg] [facility] Diastolic blood pressure 2021-10-12 18:17:00 90 mm[Hg] [facility] Heart rate 2021-10-12 18:17:00 112 /min [facility] Body temperature 2021-10-12 18:17:00 37.11 Nabila [facility] Respiratory rate 2021-10-12 18:17:00 20 /min [facility] Body height 2021-10-12 18:17:00 167.6 cm [facility] Body weight 2021-10-12 18:17:00 68.04 kg [facility] BMI 2021-10-12 18:17:00 24.21 kg/m2 [facility] Procedures Procedure Date / Time Performed Performing Clinician Source POCT TEST 2023-11-02 13:41:00 Jennifer Gomez [facility] POCT TEST 2023-09-17 08:10:00 Jone Deleon [facility] URINALYSIS 2023-09-17 08:08:00 [facility] COMP. METABOLIC PANEL (06149) 2023-08-27 02:06:00 Narda Blackwell [facility] CBC WITH DIFF 2023-08-27 02:06:00 Narda [facility] URIN[facility] 2023-08-27 02:06:00 [facility]well [facility] POCT TEST 2023-08-24 13:41:00 Nava Castañeda [facility] POCT TEST 2023-08-10 21:53:00 Nava Castañeda [facility] GC & CHLAMYDIA AMPLIFIED ASSAY 2023-02-08 22:47:00 Tushar Lan [facility] TRICHOMONAS AMPLIFIED ASSAY 2023-02-08 22:47:00 Tushar Lan [facility] POCT TEST 2023-02-08 22:44:00 AkinOmar bryant [facility] ASSIGNMENT OF BENEFITS 2023-02-08 22:03:35 Docto r Unassigned, Edcouch [facility] PROTEIN CREAT RATIO URINE RANDOM 2022-07-29 05:00:00 Francis Kasey [facility] CBC WITH DIFF 2022-07-25 10:37:00 Tony Blanco [facility] COMP. METABOLIC PANEL (82066) 2022-07-25 03:06:00 Francis [facility] CBC WITH DIFF 2022-07-25 03:06:00 Tony Blanco [facility] PROTEIN CREAT RATIO URINE RANDOM 2022-07-25 03:06:00 Francis [facility] CBC WITH DIFF 2022-07-22 08:27:00 Adum, Hetal Min [facility] CBC WITH DIFF 2022-07-22 08:27:00 Adum, Hetal Min [facility] SECTION 2022-07-21 18:36:00 Adum[facility] 2022-07-21 18:36:00 Adum, Hetal Villegas [facility] URINE DRUG (IMMUNOASSAY) - COMPREHENSIVE DRUG SCREEN W/O REFLEX 2022-07-21 18:12:00 Adum, Hetal Mario [facility] URINE DRUG (IMMUNOASSAY) - COMPREHENSIVE DRUG SCREEN W/O REFLEX 2022-07-21 18:12:00 Adum, Hetal Mario [facility] CBC WITH DIFF 2022-07-21 16:52:00 Adum, Hetal Min [facility] HEPATITIS B SURFACE ANTIGEN 2022-07-21 16:52:00 Adum, Hetal Mario [facility] HB ABO GROUPING 2022-07-21 16:52:00 Adum, [facility] - RPR 2022-07-21 16:52:00 Adum, Hetal Mario [facility] HIV 1/2 AG-AB WITH REFLEX 2022-07-21 16:52:00 Adum, Hetal Fabiano [facility] CBC WITH DIFF 2022-07-21 16:52:00 [facility] 2022-07-21 16:52:00 Adum, Hetal Fabiano [facility] HB ABO GROUPING 2022-07-21 16:52:00 Adum, Hetaleliseo Avendano [facility] ADC OR KATALINA ONLY - RPR 2022-07-21 16:52:00 Adum, Hetal Fabiano [facility] HIV 1/2 AG-AB WITH REFLEX 2022-07-21 16:52:00 Adum, Hetal Fabiano [facility] RHO (D) IMMUNE GLOBULIN 2022-07-21 16:52:00 Kasey Aviles [facility] ADC ONLY - FERN TEST 2022-07-21 16:06:00 Adum, Hetal L [facility] ADC ONLY - FERN TEST 2022-07-21 16:06:00 Adum, Hetal Fabiano [facility] CONSENT/REFUSAL FOR DIAGNOSIS AND TREATMENT 2022-07-21 15:31:39 Doctor Unassigned, Edcouch [facility] CONSENT/REFUSAL FOR DIAGNOSIS AND TREATMENT 2022-07-21 15:31:39 Doctor Unassigned, Edcouch [facility] URINALYSIS 2022-07-17 16:35:00 Adum, Hetal Fabiano [facility] ONLY - FERN TEST 2022-07-17 16:35:00 Adum, Hetal Fabiano [facility] URINALYSIS 2022-07-11 06:30:[address] [facility] ADC [facility] OR [facility] ONLY - WET PREP 2022-07-11 06:30:00 Austin Arzola [facility] NOTICE OF PRIVACY PRACTICES 2022-07-11 03:43:30 Doctor Unassigned, Edcouch [facility] CONSENT/REFUSAL FOR DIAGNOSIS AND TREATMENT 2022-07-11 03:43:01 Doctor Unassigned, Edcouch [facility] ASSIGNMENT OF BENEFITS 2022-07-11 03:42:40 Docto r Unassigned, Edcouch [facility] POCT URINALYSIS 2022-07-08 19:23:00 Antonette Luque [facility] L&D VISIT (NON-DELIVERED) 2022-07-06 05:01:00 Doctor Unassigned, Edcouch [facility] ASSIGNMENT OF BENEFITS 2022-07-06 04:55:57 Docto r Unassigned, Edcouch [facility] POCT URINALYSIS 2022-06-23 19:48:00 Antonette Luque [facility] POCT URINALYSIS 2022-06-09 18:04:00 Antonette Luque [facility] TDAP VACCINE, >11 YRS, IM 2022-05-26 15:59:59 Tushar Lan [facility] GLUCOSE 1 HOUR POST PRANDIAL 2022-05-12 21:16:00 Tushar Lan [facility] [facility] CBC WITH DIFF 2022-05-12 21:16:00 Tushar Lan [facility] POCT URINALYSIS 2022-05-12 20:18:00 Antonette Luque [facility] POCT URINALYSIS 2022-04-28 17:24:00 Antonette Luque [facility] SECOND AND THIRD TRIMESTER ULTRASOUND 2022-04-14 15:44:00 Antonette Luque [facility] POCT URINALYSIS 2022-03-31 16:02:00 Antonette Luque [facility] POCT URINALYSIS 2022-03-10 00:00:00 Antonette Luque [facility] POCT URINALYSIS 2022-02-24 16:30:00 Antonette Luque [facility] POCT URINALYSIS 2022-02-10 00:00:00 Antonette Luque [facility] POCT URINALYSIS 2022-01-27 15:33:00 Antonette Luque [facility] REPORT OF 2021-12-23 05:01:00 Doctor Mal csott Edcouch [facility] POCT TEST 2021-12-23 00:00:00 Yuly Luque [facility] POCT URINALYSIS W/O SPECIFIC GRAVITY 2021-12-23 00:00:00 Antonette Luque [facility] FIRST TRIMESTER LESS THAN 14 WEEKS WITH TRANSVAGINAL 2021-12-14 21:24:20 Sara Snyder [facility] ASSIGNMENT OF BENEFITS 2021-12-14 19:54:43 Docto r Unassigned, Edcouch [facility] POCT TEST 2021-12-09 00:00:00 Holden Snyder [facility] POCT TEST 2021-10-12 18:22:00 Omar Lan [facility] Encounters Start Date/Time End Date/Time Encounter Type Admission Type Attending [facility] Care Facility Care Department Encounter ID Source 2022-07-24 07:39:17 Outpatient P VELEZ-ADAMARIS S, KASEY VELEZ-ADAMARIS S, KASEY [facility] [id number] [facility] 2022-07-11 03:19:31 Outpatient X [facility] [id number] [facility] 2020-12-27 22:10:58 Emergency [facility] [id number] [facility] 2020-12-27 22:10:57 [facility] [id number] [facility] 2020-12-27 19:19:43 Outpatient P [facility] [id number] [facility] 2020-12-27 19:19:36 Outpatient P [facility] [id number] [facility] 2023-12-07 09:30:00 2023-12-07 09:30:00 [facility]patient R [facility] [id number] [facility] 2023-12-05 10:00:00 2023-12-05 10:00:00 Outpatient R [facility] [id number] [facility] 2023-11-09 00:00:00 2023-11-09 15:05:28 Patient Secure Msg Doctor Unassigned, Edcouch Doctor Unassigned, Edcouch [facility] DANY[facility] 1.840.114 350.1.13.10 4.2.7.2.[id number] [facility] 2023-11-09 00:00:00 2023-11-09 11:16:11 Telephone Jennifer Gomez [facility] DANYA?[facility] MED[facility] OFF[facility] BU[facility] 1.840.114 350.1.13.10 4.2.7.2.[id number] [facility] 2023-11-07 10:00:00 2023-11-07 10:00:00 Outpatient BREANNA FLOREZ STRAHIL [facility] [id number] [facility] 2023-11-02 09:15:00 2023-11-02 09:30:00 Dance Critic Visit Lab, Ang - Jennifer Borrero Lab, Ang - Db [facility] MED[facility] OFFICE BUILD[facility] 1..840.114 350.1.13.10 4.2.7.2.[id number] [facility] 2023-11-02 09:15:00 2023-11-02 09:15:00 Outpatient R JENNIFER GOMEZ [facility] [id number] [facility] 2023-11-02 08:00:00 2023-11-02 08:45:10 Office Visit Jennifer Gomez [facility] DANY[facility] MEDICAL OFFICE BUILD[facility] 1..840.114 350.1.13.10 4.2.7.2.[id number] [facility] 2023-11-01 00:00:00 2023-11-01 10:09:58 Nava Johnson [facility] CENTER [facility] MATERNAL & [facility] 1.840.114 350.1.13.10 4.2.7.2.[id number] [facility] 2023-09-21 09:00:00 2023-09-21 09:41:54 Outpatient R GARRY NAVA [facility] [id number] [facility] 2023-09-21 09:00:00 2023-09-21 09:41:54 Office Visit Nava Castañeda [facility] CENTER [facility] MATERNAL & CHILD [facility] ..840.114 350.1.13.10 4.2.7.2.[id number] [facility] 2023-09-20 14:00:00 2023-09-20 14:00:00 Outpatient R NAVA CASTAÑEDA [facility] [id number] [facility] 2023-09-18 00:00:00 2023-09-19 08:26:55 Telephone aGrry [facility] CENTER [facility]IST [facility] & CHILD [facility] ..840.114 350.1.13.10 4.2.7.2.[id number] [facility] 2023-09-17 02:19:00 2023-09-17 04:39:00 Emergency X JONE DELEON WILLIAM [facility] ERT [id number] [facility] 2023-09-17 02:19:00 2023-09-17 04:39:00 Emergency Jone Deleon [facility] ..840.114 350.1.13.10 4.2.7.2.[id number] [facility] 2023-08-26 20:47:00 2023-08-26 22:56:00 Emergency X NARDA BLACKWELL [facility] ERT [id number] [facility] 2023-08-26 20:47:00 2023-08-26 22:56:00 Emergency Narda Blackwell [facility] ..840.114 350.1.13.10 4.2.7.2.[id number] [facility] 2023-08-24 07:15:00 2023-08-24 08:09:48 Outpatient R NAVA CASTAÑEDA [facility] [id number] [facility] 2023-08-24 07:15:00 2023-08-24 08:09:48 Office Visit Nava Castañeda [facility] CENTER [facility] & CHILD [facility] 1.2.840.114 350.1.13.10 4.2.7.2.[id number] [facility] 2023-08-17 07:15:00 2023-08-17 07:15:00 Outpatient R NAVA CASTAÑEDA [facility] [id number] [facility] 2023-08-15 00:00:00 2023-08-15 00:00:00 Telephone Nava Castañdea [facility] CENTER [facility] & CHILD [facility] 1.2.840.114 350.1.13.10 4.2.7.2.[id number] [facility] 2023-08-10 13:30:00 2023-08-10 14:01:12 Outpatient R NAVA CASTAÑEDA [facility] [id number] [facility] 2023-08-10 13:30:00 2023-08-10 14:01:12 Office Visit Nava Castañeda [facility] CENTER [facility] & [facility] 1.2.840.114 350.1.13.10 4.2.7.2.[id number] [facility] 2023-07-19 07:00:00 2023-07-19 07:00:00 Outpatient TUSHAR COHN [facility] [id number] [facility] 2023-06-29 10:45:00 2023-06-29 10:45:00 Outpatient TUSHAR COHN [facility] [id number] [facility] 2023-06-27 12:30:00 2023-06-27 12:30:00 Outpatient R ANTONETTE LUQUE [facility] [id number] [facility] 2023-02-09 10:30:00 2023-02-09 10:45:00 Dance Critic Visit Lab, Ang-Rmchp Tushar Lan [facility] CENTER [facility] MATERNAL & CHILD HEALTH [facility] 1..840.114 350.1.13.10 4.2.7.2.[id number] [facility] 2023-02-09 10:30:00 2023-02-09 10:30:00 Outpatient R TUSHAR LAN [facility] [id number] [facility] 2023-02-08 16:00:00 2023-02-08 16:42:47 Outpatient R TUSHAR LAN [facility] [id number] [facility] 2023-02-08 16:00:00 2023-02-08 16:42:47 Office Visit Tushar Lan [facility] CENTER [facility] & CHILD [facility] 1.840.114 350.1.13.10 4.2.7.2.[id number] [facility] 2023-02-08 00:00:00 2023-02-08 00:00:00 Orders Only Doctor Unassigned, Edcouch [facility] 1.840.114 350.1.13.10 4.2.7.2.[id number] [facility] 2022-12-08 14:45:00 2022-12-08 14:45:00 Outpatient R TUSHAR LAN [facility] [id number] [facility] 2022-09-07 15:15:00 2022-09-07 16:22:49 Outpatient R TUSHAR LAN [facility] [id number] [facility] 2022-08-29 00:00:00 2022-08-29 00:00:00 Telephone Tushar Lan [facility] CENTER [facility] & CHILD [facility] 1.2840.114 350.1.13.10 4.2.7.2.[id number] [facility] 2022-08-29 00:00:00 2022-08-29 00:00:00 Telephone Tushar Lan [facility] CENTER [facility] & CHILD [facility] 1.840.114 350.1.13.10 4.2.7.2.[id number] [facility] 2022-08-12 10:00:00 2022-08-12 11:16:38 Outpatient R TUSHAR LAN [facility] [id number] [facility] 2022-08-12 10:00:00 2022-08-12 11:16:38 Routine Visit Tushar Lan [facility] CENTER [facility] CHILD [facility] 1.840.114 350.1.13.10 4.2.7.2.[id number] [facility] 2022-08-01 09:30:00 2022-08-01 10:21:06 Nurse Visit Visit, Ang-Rmchp Nurse Tushar Lan [facility] 1.840.114 350.1.13.10 4.2.7.2.[id number] [facility] 2022-08-01 09:30:00 2022-08-01 09:30:00 Outpatient R TUSHAR LAN [facility] [id number] [facility] 2022-08-01 00:00:00 2022-08-01 00:00:00 Patient Secure Msg Tushar Lan [facility] CENTER [facility] CHILD [facility] 1..840.114 350.1.13.10 4.2.7.2.[id number] [facility] 2022-08-01 00:00:00 2022-08-01 00:00:00 Patient Secure Msg Tushar Lan [facility] CENTER [facility] & CHILD [facility] 1.2.840.114 350.1.13.10 4.2.7.2.[id number] [facility] 2022-07-28 20:06:00 2022-07-29 12:45:00 Outpatient P ADUMISIAHHETAL [facility] [id number] [facility] 2022-07-28 20:06:00 2022-07-29 12:45:00 Hospital Encounter Velez-Adamaris s, Kasey AdumHetal L [facility] 1.2.840.114 350.1.13.10 4.2.7.2.[id number] [facility] 2022-07-27 00:00:00 2022-07-27 00:00:00 Nurse Triage [facility] 1.2.840.114 350.1.13.10 4.2.7.2.[id number] [facility] 2022-07-26 00:00:00 2022-07-26 00:00:00 Telephone Tushar Lan [facility] CENTER [facility] & CHILD [facility] 1.2.840.114 350.1.13.10 4.2.7.2.[id number] [facility] 2022-07-24 09:28:00 2022-07-25 12:30:00 Outpatient P VELEZ-ADAMARIS S, KASEY VELEZ-ADAMARIS S, KASEY [facility] [employer] [id number] [facility] 2022-07-24 09:28:00 2022-07-25 12:30:00 Hospital Encounter Velez-Adamaris s, Kasey [facility] 1.2.840.114 350.1.13.10 4.2.7.2.[id number] [facility] 2022-07-21 10:37:00 2022-07-23 13:45:00 Inpatient X HETAL NORRIS [facility] ELIAZAR [id number] [facility] 2022-07-21 10:37:00 2022-07-23 13:45:00 Hospital Encounter AdHetal meneses [facility] 1.2.840.114 350.1.13.10 4.2.7.2.[id number] [facility] 2022-07-21 12:35:00 2022-07-21 14:27:00 Surgery AdHetal meneses [facility] 1.2.840.114 350.1.13.10 4.2.7.2.[id number] [facility] 2022-07-21 10:45:00 2022-07-21 10:45:00 Outpatient R TUSHAR LAN [facility] [id number] [facility] 2022-07-19 00:00:00 2022-07-19 00:00:00 Case Management AdHetal meneses [facility] 1.2840.114 350.1.13.10 4.2.7.2.[id number] [facility] 2022-07-17 10:38:00 2022-07-17 12:40:00 Outpatient X HETAL NORRIS [facility] [id number] [facility] 2022-07-17 10:38:00 2022-07-17 12:40:00 [facility] 1.2.840.114 350.1.13.10 4.2.7.2.[id number] [facility] 2022-07-10 22:46:00 2022-07-11 03:10:00 Outpatient X AUSTIN ARZOLA [facility] EL[facility]ZAR [id number] [facility] 2022-07-10 22:46:00 2022-07-11 03:10:00 Emergency Austin Arzola Cam [facility] 1.2840.114 350.1.13.10 4.2.7.2.[id number] [facility] 2022-07-11 00:00:00 2022-07-11 00:00:00 Telephone Tushar Lan [facility] CENTER [facility] & CHILD [facility] 1.2840.114 350.1.13.10 4.2.7.2.[id number] [facility] 2022-07-08 14:15:00 2022-07-08 14:41:47 Outpatient R TUSHAR LAN [facility] [id number] [facility] 2022-07-08 14:15:00 2022-07-08 14:41:47 Routine Visit Tushar Lan [facility] CENTER [facility] & CHILD [facility] 1.284.114 350.1.13.10 4.2.7.2.[id number] [facility] 2022-07-06 00:06:00 2022-07-06 04:42:00 Outpatient P HETAL NORRIS [facility] [id number] [facility] 2022-07-06 00:06:00 2022-07-06 04:42:00 Emergency Hetal Norris [facility] 1.2.840.114 350.1.13.10 4.2.7.2.[id number] [facility] 2022-07-06 00:00:00 2022-07-06 00:00:00 Orders Only Doctor Unassigned, Edcouch [facility] 1.2840.114 350.1.13.10 4.2.7.2.[id number] [facility] 2022-07-05 00:00:00 2022-07-05 00:00:00 Orders Only Doctor Unassigned, Edcouch [facility] 1.2840.114 350.1.13.10 4.2.7.2.[id number] [facility] 2022-06-23 14:45:00 2022-06-23 15:08:35 Outpatient R TUSHAR LAN [facility] [id number] [facility] 2022-06-23 14:45:00 2022-06-23 15:08:35 Routine Visit Tushar Lan [facility] & CHILD [facility] 1.0.114 350.1.13.10 4.2.7.2.[id number] [facility] 2022-06-16 13:00:00 2022-06-16 13:00:00 Outpatient R TUSHAR LAN [facility] [id number] [facility] 2022-06-09 12:45:00 2022-06-09 13:24:30 Outpatient R TUSHAR LAN [facility] [id number] [facility] 2022-06-09 12:45:00 2022-06-09 13:24:30 Routine Visit Tushar Lan [facility] & CHILD [facility] 1.840.114 350.1.13.10 4.2.7.2.[id number] [facility] 2022-06-02 10:30:00 2022-06-02 10:42:00 Nurse Visit Visit, [facility] Tushar Lan [facility] CENTER [facility] & CHILD [facility] 1.2.840.114 350.1.13.10 4.2.7.2.[id number] [facility] 2022-06-02 10:30:00 2022-06-02 10:30:00 Outpatient R TUSHAR LAN [facility] [id number] [facility] 2022-05-26 10:30:00 2022-05-26 11:07:20 Outpatient R TUSHAR LAN [facility] [id number] [facility] 2022-05-26 10:30:00 2022-05-26 11:07:20 Routine Visit Brynbernyjohnathan Tushar Lund [facility] CENTER [facility] & CHILD [facility] 1.2.840.114 350.1.13.10 4.2.7.2.[id number] [facility] 2022-05-19 10:30:00 2022-05-19 11:03:10 Nurse Visit Visit, [facility] Nurse Riky Tushar Ashely [facility] CENTER [facility] & CHILD [facility] 1.2.840.114 350.1.13.10 4.2.7.2.[id number] [facility] 2022-05-19 10:30:00 2022-05-19 10:30:00 Outpatient R TUSHAR LAN [facility] [id number] [facility] 2022-05-12 14:45:00 2022-05-12 15:46:52 Outpatient R TUSHAR LAN [facility] [id number] [facility] 2022-05-12 14:45:00 2022-05-12 15:46:52 Routine Visit Brynbernyjohnathan Tushar Lund [facility] CENTER [facility] & CHILD [facility] 1.2.840.114 350.1.13.10 4.2.7.2.[id number] [facility] 2022-05-05 10:30:00 2022-05-05 10:45:51 Nurse Visit Visit, Tushar Osei [facility] CENTER [facility] & CHILD [facility] 1.2.840.114 350.1.13.10 4.2.7.2.[id number] [facility] 2022-05-05 10:30:00 2022-05-05 10:30:00 Outpatient R TUSHAR LAN [facility] [id number] [facility] 2022-04-28 11:00:00 2022-04-28 11:44:12 Outpatient R TUSHAR LAN [facility] [id number] [facility] 2022-04-28 11:00:00 2022-04-28 11:44:12 Routine Visit Tushar Lan [facility] CENTER [facility] & CHILD [facility] 1.0.114 350.1.13.10 4.2.7.2.[id number] [facility] 2022-04-21 10:00:00 2022-04-21 10:30:36 Nurse Visit Visit, Antonette Ojeda [facility] CENTER [facility] & CHILD [facility] 1.840.114 350.1.13.10 4.2.7.2.[id number] [facility] 2022-04-21 10:00:00 2022-04-21 10:00:00 Outpatient R ANTONETTE LUQUE [facility] [id number] [facility] 2022-04-14 09:15:00 2022-04-14 11:39:36 Routine Visit Risk, Neftali-N p/High Shereen Sky [facility] CENTER [facility] & CHILD [facility] 1.2840.114 350.1.13.10 4.2.7.2.[id number] [facility] 2022-04-14 10:30:00 2022-04-14 10:45:00 Nurse Visit Visit, Tushar Osei [facility] 1.2840.114 350.1.13.10 4.2.7.2.[id number] [facility] 2022-04-14 09:30:00 2022-04-14 10:39:28 Outpatient P SHEREEN SKY [facility] [id number] [facility] 2022-04-14 09:30:00 2022-04-14 10:39:28 Dance Critic Visit Ultrasound, Shereen Sheridan [facility] CENTER [facility] & CHILD [facility] 1.2840.114 350.1.13.10 4.2.7.2.[id number] [facility] 2022-04-14 10:30:00 2022-04-14 10:30:00 Outpatient TUSHAR COHN [facility] [id number] [facility] 2022-04-14 00:00:00 2022-04-14 00:00:00 Case Management Antonette Luque [facility] CENTER [facility] & CHILD [facility] 1.840.114 350.1.13.10 4.2.7.2.[id number] [facility] 2022-04-07 13:00:00 2022-04-07 13:13:39 Nurse Visit Visit, Tushar Osei [facility] 1.2.840.114 350.1.13.10 4.2.7.2.[id number] [facility] 2022-04-07 13:00:00 2022-04-07 13:00:00 Outpatient TUSHAR COHN [facility] [id number] [facility] 2022-04-07 00:00:00 2022-04-07 00:00:00 Telephone Tushar Lan [facility] CENTER [facility] & CHILD [facility] 1.2.840.114 350.1.13.10 4.2.7.2.[id number] [facility] 2022-03-31 09:45:00 2022-03-31 10:58:49 Outpatient EDWIN BARNARD [facility] [id number] [facility] 2022-03-31 09:45:00 2022-03-31 10:58:49 Routine Visit Risk, Neftali-N p/High Edwin Cage [facility] & CHILD [facility] 1..840.114 350.1.13.10 4.2.7.2.[id number] [facility] 2022-03-24 10:00:00 2022-03-24 10:00:00 Nurse Visit Visit, Neftali Nurse Tushar Lan [facility] & CHILD [facility] [place] 1..840.114 350.1.13.10 4.2.7.2.[id number] [facility] 2022-03-24 10:00:00 2022-03-24 09:55:01 Outpatient TUSHAR COHN [facility] [id number] [facility] 2022-03-15 00:00:00 2022-03-15 00:00:00 Telephone Tushar Lan [facility] & CHILD [facility] [place] 1..840.114 350.1.13.10 4.2.7.2.[id number] [facility] 2022-03-10 11:00:00 2022-03-10 11:45:31 Outpatient EDWIN BARNARD [facility] [id number] [facility] 2022-03-10 11:00:00 2022-03-10 11:45:31 Routine Visit Risk, Ang-Rmchp-N p/High Edwin Cage [facility] CENTER [facility] & CHILD [facility] 1.2.840.114 350.1.13.10 4.2.7.2.[id number] [facility] 2022-03-10 10:30:00 2022-03-10 10:30:00 Outpatient Angelica [facility] [id number] [facility] 2022-03-07 00:00:00 2022-03-07 00:00:00 Telephone Tushar Lan [facility] & [facility]ILD [facility] 1..840.114 350.1.13.10 4.2.7.2.[id number] [facility] 2022-03-07 00:00:00 2022-03-07 00:00:00 Case Management Edwin Cage [facility] & CHILD [facility] 1..840.114 350.1.13.10 4.2.7.2.[id number] [facility] 2022-02-24 10:00:00 2022-02-24 11:04:18 Outpatient EDWIN BARNARD [facility] [id number] [facility] 2022-02-24 10:00:00 2022-02-24 11:04:18 Routine Visit Risk, Ang-Rmchp-N p/High Edwin Cage [facility] & CHILD [facility] 1.2.840.114 350.1.13.10 4.2.7.2.[id number] [facility] 2022-02-10 13:15:00 2022-02-10 13:59:26 Outpatient EDWIN BARNARD [facility] [id number] [facility] 2022-02-10 13:15:00 2022-02-10 13:59:26 Routine Visit Risk, Ang-Rmchp-N p/High Edwin Cage [facility] CENTER [facility] & CHILD [facility] 1.2.840.114 350.1.13.10 4.2.7.2.[id number] [facility] 2022-01-27 09:00:00 2022-01-27 10:00:53 Outpatient EDWIN BARNARD [facility] [id number] [facility] 2022-01-27 09:00:00 2022-01-27 10:00:53 Routine Visit Risk, WestRmchp-N p/High Ediwn Cage [facility] & CHILD [facility] 1.2.840.114 350.1.13.10 4.2.7.2.[id number] [facility] 2022-01-10 00:00:00 2022-01-10 00:00:00 Case Management Antonette Luque [facility] & CHILD [facility] 1.2.840.114 350.1.13.10 4.2.7.2.[id number] [facility] 2022-01-06 15:15:00 2022-01-06 15:45:00 Dance Critic Visit Ultrasound, David Olivarez [facility] & CHILD [facility] 1.2.840.114 350.1.13.10 4.2.7.2.[id number] [facility] 2022-01-06 15:15:00 2022-01-06 15:15:00 Outpatient DAVID OCHOA [facility] [id number] [facility] 2021-12-30 10:00:2021-12-30 10:00:00 Outpatient R PARISSURYASARA HARRIS CLAUDIO SARA [facility] [id number] [facility] 2021-12-23 09:15:00 2021-12-23 10:41:00 Outpatient ANTONETTE KEENAN [facility] [id number] [facility] 2021-12-23 09:15:00 2021-12-23 10:41:00 Initial Visit Provider, Niki Mayfield Brenda A [facility] & CHILD [facility] 1..114 350.1.13.10 4.2.7.2.[id number] [facility] 2021-12-23 00:00:00 2021-12-23 00:00:00 Orders Only Doctor Unassigned, Edcouch [facility] 1..114 350.1.13.10 4.2.7.2.[id number] [facility] 2021-12-17 00:00:00 2021-12-17 00:00:00 Case Management MoSara nelson [facility] 1..114 350.1.13.10 4.2.7.2.[id number] [facility] 2021-12-14 14:55:04 2021-12-14 23:59:00 Outpatient R PARISSARA AGUILA PARISSURYAHARRIETMADELEINE GUNNERMARSHAL [facility] [id number] [facility] 2021-12-14 14:55:04 2021-12-14 23:59:00 Hospital Encounter LeobardoharrietSara nelson [facility] 1.84.114 350.1.13.10 4.2.7.2.[id number] [facility] 2021-12-14 00:00:00 2021-12-14 00:00:00 Orders Only Doctor Unassigned, Edcouch [facility] 1.2840.114 350.1.13.10 4.2.7.2.[id number] [facility] 2021-12-09 09:00:00 2021-12-09 09:43:20 Outpatient R SARA SNYDER CHERYAL [facility] [id number] [facility] 2021-12-09 09:00:00 2021-12-09 09:43:20 Initial Visit ParissuryaharrietSara nelson [facility] 1.2840.114 350.1.13.10 4.2.7.2.[id number] [facility] 2021-10-12 13:00:00 2021-10-12 13:34:47 Office Visit Tushar Lan [facility] C[facility] & CHILD [facility] 1.840.114 350.1.13.10 4.2.7.2.[id number] [facility] 2021-10-12 13:00:00 2021-10-12 13:34:47 Outpatient R TUSHAR LAN [facility] [id number] [facility] 2021-10-12 13:00:00 2021-10-12 13:00:00 Outpatient R TUSHAR LAN [facility] [id number] [facility] 2021-10-12 13:00:00 2021-10-12 13:00:00 Outpatient R TUSHAR LAN [facility] [id number] [facility] 2021-10-12 00:00:00 2021-10-12 00:00:00 Orders Only Doctor Unassigned, Edcouch [facility] 1.2840.114 350.1.13.10 4.2.7.2.[id number] [facility] 2021-09-28 12:45:00 2021-09-28 14:31:13 Outpatient R TUSHAR LAN [facility] [id number] [facility] 2021-09-28 12:45:00 2021-09-28 14:31:13 Office Visit Tushar Lan [facility] C[facility] & CHILD [facility] 1.840.114 350.1.13.10 4.2.7.2.[id number] [facility] 2021-08-05 16:15:00 2021-08-05 16:15:00 Outpatient R JAM SAUNDERS [facility] [id number] [facility] 2021-06-18 11:00:00 2021-06-18 11:00:00 Outpatient R MARY ANN CRUMP [facility] [id number] [facility] 2021-06-15 00:00:00 2021-06-15 00:00:00 Orders Only Doctor Unassigned, Edcouch [facility] 1.0.114 350.1.13.10 4.2.7.2.[id number] [facility] 2021-06-15 00:00:00 2021-06-15 00:00:00 Patient Secure Msg Doctor Unassigned, Edcouch [facility] 1.0.114 350.1.13.10 4.2.7.2.[id number] [facility] 2021-03-09 14:00:00 2021-03-09 14:00:00 Outpatient R TUSHAR LAN [facility] [id number] [facility] 2021-03-02 00:00:00 2021-03-02 00:00:00 Telephone Tushar Lan [facility] & CHILD [facility] 1.840.114 350.1.13.10 4.2.7.2.[id number] [facility] 2021-02-12 00:00:00 2021-02-12 00:00:00 Refill Ernesto Peacock [facility] & CHILD [facility] 1.2.840.114 350.1.13.10 4.2.7.2.[id number] [facility] 2021-02-11 00:00:00 2021-02-11 00:00:00 RefTushar Shen [facility] & CHILD [facility] 1.2.840.114 350.1.13.10 4.2.7.2.[id number] [facility] 2021-01-27 00:00:00 2021-01-27 00:00:00 Refill Ernesto Peacock [facility] & CHILD [facility] 1.2.840.114 350.1.13.10 4.2.7.2.[id number] [facility] 2021-01-18 16:00:00 2021-01-18 16:18:34 Outpatient ERNESTO STARKS [facility] [id number] [facility] 2021-01-18 15:59:18 2021-01-18 16:18:34 Office Visit Ernesto Peacock [facility] 1.2.840.114 350.1.13.10 4.2.7.2.[id number] [facility] 2021-01-18 16:00:00 2021-01-18 16:00:00 Outpatient ERNESTO STARKS [facility] [id number] [facility] 2021-01-15 13:15:00 2021-01-15 13:15:00 Outpatient ERNESTO STARKS [facility] [id number] [facility] 2020-12-11 00:00:00 2020-12-11 00:00:00 Telephone Tushar Lan [facility] CENTER [facility] & CHILD [facility] 1.840.114 350.1.13.10 4.2.7.2.[id number] [facility] 2020-10-20 13:30:06 2020-10-20 14:12:47 Office Visit Niki Ralph [facility] & CHILD [facility] 1.84.114 350.1.13.10 4.2.7.2.[id number] [facility] 2020-10-20 13:30:00 2020-10-20 13:30:00 Outpatient R NIKI RALPH [facility] [id number] [facility] 2020-10-14 15:00:00 2020-10-14 15:00:00 Outpatient R TUSHAR LAN [facility] [id number] [facility] 2020-10-12 14:17:44 2020-10-12 15:03:31 Office Visit Tushar Lan [facility] CHILD [facility] 1.84.114 350.1.13.10 4.2.7.2.[id number] [facility] 2020-10-12 14:30:00 2020-10-12 14:30:00 Outpatient R TUSHAR LAN [facility] [id number] [facility] 2020-09-28 08:30:00 2020-09-28 08:30:00 Outpatient TUSHAR COHN [facility] [id number] [facility] 2020-09-28 00:00:00 2020-09-28 00:00:00 Telephone Ernesto Peacock [facility] CENTER [facility] & CHILD [facility] 1.840.114 350.1.13.10 4.2.7.2.[id number] [facility] 2020-09-25 00:00:00 2020-09-25 00:00:00 Telephone Tushar Lan [facility] CENTER [facility] & CHILD [facility] 1.2.840.114 350.1.13.10 4.2.7.2.[id number] [facility] 2020-09-24 14:14:05 2020-09-24 14:29:05 Office Visit Tushar Lan [facility] CENTER [facility] & CHILD [facility] 1..840.114 350.1.13.10 4.2.7.2.[id number] [facility] 2020-09-24 14:15:00 2020-09-24 14:15:00 Outpatient R TUSHAR LAN [facility] [id number] [facility] 2020-09-08 16:00:00 2020-09-08 16:00:00 Outpatient ERNESTO STARKS [facility] [id number] [facility] 2020-08-18 13:04:51 2020-08-18 13:45:53 Routine Visit Tushar Lan [facility] 1..840.114 350.1.13.10 4.2.7.2.[id number] [facility] 2020-08-18 13:15:00 2020-08-18 13:15:00 Outpatient R TUSHAR LAN [facility] [id number] [facility] 2020-08-06 11:00:00 2020-08-06 11:00:00 Outpatient ERNESTO STARKS [facility] [id number] [facility] 2020-08-06 08:21:04 2020-08-06 09:08:19 Nurse Visit Visit, Ang-Rmchp Nurse Tushar Lan [facility] 1.2.840.114 350.1.13.10 4.2.7.2.[id number] [facility] 2020-08-06 09:00:00 2020-08-06 09:00:00 Outpatient R RUYB LANOLA [facility] [id number] [facility] 2020-08-04 00:00:00 2020-08-04 00:00:00 Telephone Ernesto Peacock [facility] 1.2.840.114 350.1.13.10 4.2.7.2.[id number] [facility] 2020-08-01 00:00:00 2020-08-01 00:00:00 Encounter 1.2.840.1 [id number] 3.104.2.7 .[id number] 1.2.840.114 350.1.13.10 4.2.7.2.[id number] [facility] 2020-07-26 14:30:00 2020-07-28 17:45:00 Hospital Encounter Rosio Breen Vien [facility] 1.2.840.114 350.1.13.10 4.2.7.2.[id number] [facility] 2020-07-27 10:49:00 2020-07-27 16:19:00 Anesthesia Event Dylan Prieto [facility] 1.2.840.114 350.1.13.10 4.2.7.2.[id number] [facility] 2020-07-26 19:50:09 2020-07-26 19:50:09 Anesthesia Event Angelica Sifuentes [facility] 1.2.840.114 350.1.13.10 4.2.7.2.[id number] [facility] 2020-07-21 12:46:13 2020-07-21 13:17:55 Routine Visit Ernesto Peacock [facility] & CHILD [facility] 1.2.840.114 350.1.13.10 4.2.7.2.[id number] [facility] 2020-07-21 12:45:00 2020-07-21 12:45:00 Outpatient R ERNESTO PEACOCK [facility] [id number] [facility] 2020-07-12 02:00:00 2020-07-12 03:20:00 Hospital Encounter Hetal Norris [facility] 1.2.840.114 350.1.13.10 4.2.7.2.[id number] [facility] 2020-07-07 10:39:36 2020-07-07 11:15:55 Routine Visit Ernesto Peacock [facility] C[facility] & CHILD [facility] 1.2.840.114 350.1.13.10 4.2.7.2.[id number] [facility] 2020-07-07 10:45:00 2020-07-07 10:45:00 Outpatient R ERNESTO PEACOCK [facility] [id number] [facility] 2020-06-26 00:00:00 2020-06-26 00:00:00 Telephone Tushar Lan [facility] C[facility] & CHILD [facility] 1.2.840.114 350.1.13.10 4.2.7.2.[id number] [facility] 2020-06-26 00:00:00 2020-06-26 00:00:00 Patient Secure Msg Ernesto Peacock [facility] C[facility] & CHILD [facility] 1.2.840.114 350.1.13.10 4.2.7.2.[id number] [facility] 2020-06-23 14:10:30 2020-06-23 14:38:56 Routine Visit Ernesto Peacock [facility] C[facility] & CHILD [facility] 1.2840.114 350.1.13.10 4.2.7.2.[id number] [facility] 2020-06-23 14:15:00 2020-06-23 14:15:00 Outpatient R ERNESTO PEACOCK [facility] [id number] [facility] 2020-06-11 00:00:00 2020-06-11 00:00:00 Orders Only Doctor Unassigned, Edcouch [facility] 1.20.114 350.1.13.10 4.2.7.2.[id number] [facility] 2020-06-09 14:16:51 2020-06-09 14:55:17 Routine Visit Niki Ralph Emily N [facility] 1.0.114 350.1.13.10 4.2.7.2.[id number] [facility] 2020-06-09 14:15:00 2020-06-09 14:15:00 Outpatient R ERNESTO PEACOCK [facility] [id number] [facility] 2020-06-02 00:00:00 2020-06-02 00:00:00 Orders Only Doctor Unassigned, Edcouch [facility] 1.20.114 350.1.13.10 4.2.7.2.[id number] [facility] 2020-06-01 00:00:00 2020-06-01 00:00:00 Refill Tushar Lan [facility] & CHILD [facility] 1.2840.114 350.1.13.10 4.2.7.2.[id number] [facility] 2020-05-21 12:58:26 2020-05-21 13:13:26 Dance Critic Visit Lab, Ang-Rmchp Tushar Lan [facility] CENTER [facility] & CHILD [facility] 1.2.840.114 350.1.13.10 4.2.7.2.[id number] [facility] 2020-05-21 13:00:00 2020-05-21 13:00:00 Outpatient R TUSHAR LAN [facility] [id number] [facility] 2020-05-19 12:45:26 2020-05-19 13:11:32 Routine Visit Ernesto Peacock [facility] CENTER [facility] & CHILD [facility] 1.2.840.114 350.1.13.10 4.2.7.2.[id number] [facility] 2020-05-19 12:45:00 2020-05-19 12:45:00 Outpatient R ERNESTO PEACOCK [facility] [id number] [facility] 2020-05-19 00:00:00 2020-05-19 00:00:00 Patient Outreach Jeffery Dumont [facility] 1.2.840.114 350.1.13.10 4.2.7.2.[id number] [facility] 2020-04-23 15:54:18 2020-04-23 16:11:16 Routine Visit Ernesto Peacock [facility] C[facility] 1.2840.114 350.1.13.10 4.2.7.2.[id number] [facility] 2020-04-23 16:00:00 2020-04-23 16:00:00 Outpatient R ERNESTO PEACOCK [facility] [id number] [facility] 2020-04-14 12:45:00 2020-04-14 12:45:00 Outpatient R ERNESTO PEACOCK [facility] [id number] [facility] 2020-04-09 13:55:54 2020-04-09 14:54:41 Dance Critic Visit Ultrasound, Radha Alvarado [facility] CENTER [facility] & CHILD [facility] 1.840.114 350.1.13.10 4.2.7.2.[id number] [facility] 2020-04-09 14:00:00 2020-04-09 14:00:00 Outpatient P [facility] [id number] [facility] 2020-04-07 00:00:00 2020-04-07 00:00:00 Telephone Ernesto Peacock [facility] C[facility] & CHILD [facility] 1.840.114 350.1.13.10 4.2.7.2.[id number] [facility] 2020-03-26 00:00:00 2020-03-26 00:00:00 Orders Only Doctor Unassigned, Edcouch [facility] 1.840.114 350.1.13.10 4.2.7.2.[id number] [facility] 2020-03-17 12:49:30 2020-03-17 13:34:04 Routine Visit Ernesto Peacock [facility] CENTER [facility] & CHILD [facility] 1.840.114 350.1.13.10 4.2.7.2.[id number] [facility] 2020-03-17 13:00:00 2020-03-17 13:00:00 Outpatient R ERNESTO PEACOCK [facility] [id number] [facility] 2020-02-25 00:00:00 2020-02-25 00:00:00 Telephone Ernesto Peacock [facility] C[facility] & CHILD [facility] 1.840.114 350.1.13.10 4.2.7.2.[id number] [facility] 2020-02-18 14:45:00 2020-02-18 14:45:00 Outpatient R ERNESTO PEACOCK [facility] [id number] [facility] 2020-02-18 14:09:04 2020-02-18 14:39:35 Routine Visit Ernesto Peacock [facility] CENTER [facility] & CHILD [facility] 1.840.114 350.1.13.10 4.2.7.2.[id number] [facility] 2020-02-03 00:00:00 2020-02-03 00:00:00 Telephone Tushar Lan [facility] CENTER [facility] & CHILD [facility] 1..840.114 350.1.13.10 4.2.7.2.[id number] [facility] 2020-02-03 00:00:00 2020-02-03 00:00:00 Refill Doctor Unassigned, Edcouch [facility] C[facility] CHILD [facility] 1.840.114 350.1.13.10 4.2.7.2.[id number] [facility] 2020-01-21 15:20:02 2020-01-21 16:02:58 Routine Visit Ernesto Peacock [facility] C[facility] & CHILD [facility] 1.2840.114 350.1.13.10 4.2.7.2.[id number] [facility] 2020-01-21 15:30:00 2020-01-21 15:30:00 Outpatient R ERNESTO PEACOCK [facility] [id number] [facility] 2020-01-18 00:00:00 2020-01-18 00:00:00 Refill Doctor Unassigned, Edcouch [facility] CENTER [facility] & CHILD [facility] 1.840.114 350.1.13.10 4.2.7.2.[id number] [facility] 2020-01-09 14:52:31 2020-01-09 15:17:04 Dance Critic Visit Ultrasound, Shereen Sheridan [facility] & CHILD [facility] [place] 1.2840.114 350.1.13.10 4.2.7.2.[id number] [facility] 2020-01-09 14:45:00 2020-01-09 14:45:00 Outpatient P [facility] [id number] [facility] 2020-01-09 00:00:00 2020-01-09 00:00:00 Abstract Ernesto Peacock [facility] & [facility]ILD [facility] [place] 1.2840.114 350.1.13.10 4.2.7.2.[id number] [facility] 2019-12-27 00:00:00 2019-12-27 00:00:00 Telephone Tushar Lan [facility] & [facility]ILD [facility] [place] 1.2.114 350.1.13.10 4.2.7.2.[id number] [facility] 2019-12-26 13:39:00 2019-12-26 15:06:17 Initial Visit Ernesto Peacock [facility] & [facility]ILD [facility] [place] 1.2840.114 350.1.13.10 4.2.7.2.[id number] [facility] 2019-12-26 13:45:00 2019-12-26 13:45:00 Outpatient R ERNESTO PEACOCK [facility] [id number] [facility] 2019-12-26 00:00:00 2019-12-26 00:00:00 Orders Only Doctor Unassigned, [place] [facility] 1.2.114 350.1.13.10 4.2.7.2.[id number] [facility] 2019-12-09 13:15:00 2019-12-09 13:15:00 Outpatient R TUSHAR LAN [facility] [id number] [facility] 2019-10-28 00:00:00 2019-10-28 00:00:00 Telephone Tushar Lan [facility] & [facility]ILD [facility] [place] 1.2.840.114 350.1.13.10 4.2.7.2.686 [id number] 2019-10-28 00:00:00 2019-10-28 00:00:00 Telephone Tushar Lan [facility] [facility] CHILD [facility] 1.2.840.114 350.1.13.10 4.2.7.2.[id number] [facility] 2019-10-09 08:16:20 2019-10-09 08:48:41 Office Visit RikyStevenTushar Ashely [facility] & CHILD [facility] [place] 1.2.840.114 350.1.13.10 4.2.7.2.[id number] [facility] 2019-10-09 08:16:20 2019-10-09 08:48:41 Office Visit Ruby Lanola Ashely [facility] & CHILD [facility] [place] 1.2.840.114 350.1.13.10 4.2.7.2.686 [id number] 107 [id number] 2019-10-09 08:15:00 2019-10-09 08:15:00 Outpatient R TUSHAR LAN [facility] [id number] [facility] 2019-10-07 10:30:00 2019-10-07 10:30:00 Outpatient R TUSHAR LAN [facility] [id number] [facility] 2019-09-27 00:00:00 2019-09-27 00:00:00 Telephone Tushar Lan [facility] & CHILD [facility] [place] 1.2.840.114 350.1.13.10 4.2.7.2.[id number] [facility] 2019-09-25 00:00:00 2019-09-25 00:00:00 Refill Tushar Lan [facility] & CHILD [facility] [place] 1.2.840.114 350.1.13.10 4.2.7.2.[id number] [facility] 2019-08-19 00:00:00 2019-08-19 00:00:00 Telephone Tushar Lan [facility] [place] 1.2.840.114 350.1.13.10 4.2.7.2.[id number] [facility] 2019-08-16 00:00:00 2019-08-16 00:00:00 Case Management Selam Alves [facility] & CHILD [facility] 1.2.840.114 350.1.13.10 4.2.7.2.[id number] [facility] 2019-08-15 10:43:37 2019-08-15 11:14:30 Office Visit Provider, Tk-Rmchp Selam Oquendo [facility] & CHILD [facility] [place] 1.2.840.114 350.1.13.10 4.2.7.2.[id number] [facility] 2019-08-15 10:45:00 2019-08-15 10:45:00 Outpatient R SELAM ALVES [facility] [id number] [facility] 2019-07-23 00:00:00 2019-07-23 00:00:00 Telephone Tushar Lan [facility] & CHILD [facility] [place] 1.2.840.114 350.1.13.10 4.2.7.2.[id number] [facility] 2019-07-19 00:00:00 2019-07-19 00:00:00 Orders Only Doctor Unassigned, Edcouch [facility] 1.2.840.114 350.1.13.10 4.2.7.2.[id number] [facility] 2019-07-08 07:39:54 2019-07-08 09:35:12 Telemedici ne Visit Tushar Lan [facility] & CHILD [facility] [place] 1.2.840.114 350.1.13.10 4.2.7.2.[id number] [facility] 2019-07-08 09:30:00 2019-07-08 09:30:00 Outpatient R TUSHAR LAN [facility] [id number] [facility] 2019-07-05 00:00:00 2019-07-05 00:00:00 Telephone Tushar Lan [facility] [place] 1.2.840.114 350.1.13.10 4.2.7.2.[id number] [facility] 2019-04-29 00:00:00 2019-04-29 00:00:00 Telephone Tushar Lan [facility] & CHILD [facility] [place] 1.2.840.114 350.1.13.10 4.2.7.2.[id number] [facility] 2019-04-01 00:00:00 2019-04-01 00:00:00 Telephone Tushar Lan [facility] & CHILD [facility] [place] 1.2.840.114 350.1.13.10 4.2.7.2.[id number] [facility] 2019 10:39:31 2019 11:16:49 Office Visit Riky Tushar Lund [facility] 1.2.840.114 350.1.13.10 4.2.7.2.[id number] [facility] 2019 00:00:00 2019 00:00:00 Orders Only Doctor Unassigned, Edcouch [facility] 1.2.840.114 350.1.13.10 4.2.7.2.[id number] [facility] 2018-12-20 09:37:41 2018-12-20 10:39:11 Office Visit Tushar Lan 1.2.840.1 [id number] 3.104.2.7 [id number] [facility] 2018-12-20 00:00:00 2018-12-20 00:00:00 Telephone Tushar Lan 1.2.840.1 [id number] 3.104.2.7 [id number] [facility] 2018-12-20 00:00:00 2018-12-20 00:00:00 Orders Only Doctor Unassigned, [place] 1.2.840.1 66218.1.1 3.104.2.7 [id number] [facility] Results Test Description Test Time Test Comments Results Result Co mments Source [id number] 08:10:00* Test Item Value Reference Range Interpretation Comme nts POCT PREG (test code = 1605) Negative On board controls acceptable with C Line (test code = 3574) Yes POCT PREG LOT # (test code = 3575) [id number] POCT PREG TEST DATE ( test code = 3576) 2024-07-06 Lab Interpretation (test cod e = 15599-6) Normal [facility] (58537)2023-08-27 02:51:02* Test Item Value Reference Range Interpretation Comme nts NA (test code = 2285665240) 139 mmol/L 135-145 K (test code = 4049013387) 3.7 mmol/L 3.5-5.0 CL (test code = 0467719634) 104 mmol/L 98-108 CO2 TOTAL (test code = 2975024102) 29 mmol/L 23-31 AGAP (test code = 8032927698) 6 2-16 BUN (test code = 7500140982) 15 mg/dL 7-23 GLUCOSE (test code = 2260840285) 93 mg/dL 70-110 CREATININE (test code = 2160-0) 0.77 mg/dL 0.50-1.04 TOTAL BILI (test code = 8691454155) 0.9 mg/dL 0.1-1.1 CALCIUM (test code = 7449705908) 9.1 mg/dL 8.6-10.6 T PROTEIN (test code = 3722149450) 7.8 g/dL 6.3-8.2 ALBUMIN (test code = 6939041183) 4.3 g/dL 3.5-5.0 ALK PHOS (test code = 5366620154) 50 U/L 34-122 ALTv (test code = 1742-6) 10 U/L 5-35 AST(SGOT) (test code = 8445176057) 40 U/L 13-40 eGFR (test code = 97098-1) 112.7 mL/min/1.73m2 CKD-EPI eGFR (20 21). Assuming creatinine has been stable day-to-day for at least three months, the eGFR indicates Category G1 (>= 90 mL/min/1.73 m2) [facility] [id number] 02:25:57* Test Item Value Reference Range Interpretation Comme nts WBC (test code = 6690-2) 6.81 4.30-11.10 RBC (test code = 789-8) 5.23 3.93-5.25 HGB (test code = 718-7) 12.3 g/dL 11.6-15.0 HCT (test code = 4544-3) 39.7 % 35.7-45.2 MCV (test code = 787-2) 75.9 fL 80.6-95.5 L MCH (test code = 785-6) 23.5 pg 25.9-32.8 L MCHC (test code = 786-4) 31.0 g/dL 31.6-35.1 L RDW-SD (test code = 84210-7) 43.6 fL 39.0-49.9 RDW-CV (test code = 788-0) 16.1 % 12.0-15.5 H PLT (test code = 777-3) 295 166-358 MPV (test code = 47380-0) 10.7 fL 9.5-12.9 NRBC/100 WBC (test code = 5502600958) 0.0 0.0-10.0 NRBC x10^3 (test code = 0420346978) See_Comment [Automated messa ge] The system which generated this result transmitted reference range: 10*3/?L. The reference range was not used to interpret this result as normal/abnormal. GRAN MAT (NEUT) % (test code = 770-8) 49.4 % IMM GRAN % (test code = 2085476895) 0.10 % LYMPH % (test code = 736-9) 38.0 % MONO % (test code = 5905-5) 7.2 % EOS % (test code = 713-8) 4.3 % BASO % (test code = 706-2) 1.0 % GRAN MAT x10^3(ANC) (test code = 0006245295) 3.36 10*3/uL 1.88-7.09 IMM GRAN x10^3 (test code = 7980295654) 0.00-0.06 LYMPH x10^3 (test code = 731-0) 2.59 10*3/uL 1.32-3.29 MONO x10^3 (test code = 742-7) 0.49 10*3/uL 0.33-0.92 EOS x10^3 (test code = 711-2) 0.29 10*3/uL 0.03-0.39 BASO x10^3 (test code = 704-7) 0.07 10*3/uL 0.01-0.07 Lab Interpretation (test code = 98565-9) Abnormal [facility] [id number] 13:41:00* Test Item Value Reference Range Interpretation Comme nts POCT PREG (test code = 1605) Negative On board controls acceptable with C Line (test code = 3574) Yes POCT PREG LOT # (test code = 3575) POCT PREG TEST DATE ( test code = 3576) [facility] [id number] 21:53:00* Test Item Value Reference Range Interpretation Comme nts POCT PREG (test code = 1605) Negative On board controls acceptable with C Line (test code = 3574) Yes POCT PREG LOT # (test code = 3575) POCT PREG TEST DATE ( test code = 3576) [facility] [id number] 21:53:00* Test Item Value Reference Range Interpretation Comme nts POCT PREG (test code = 1605) Negative On board controls acceptable with C Line (test code = 3574) Yes POCT PREG LOT # (test code = 3575) POCT PREG TEST DATE ( test code = 3576) [facility] [id number] 22:45:00* Test Item Value Reference Range Interpretation Comme nts POCT PREG (test code = 1605) Negative On board controls acceptable with C Line (test code = 3574) Yes POCT PREG LOT # (test code = 3575) POCT PREG TEST DATE ( test code = 3576) [facility] [id number] 22:45:00* Test Item Value Reference Range Interpretation Comme nts POCT PREG (test code = 1605) Negative On board controls acceptable with C Line (test code = 3574) Yes POCT PREG LOT # (test code = 3575) POCT PREG TEST DATE ( test code = 3576) [facility] with Azqpxyzistge5602-30-68 11:42:42* Test Item Value Reference Range Interpretation [...] g/dL 31.6-35.1 L RDW-SD (test code = 18588-3) 38.7 fL 39.0-49.9 L RDW-CV (test code = 788-0) 15.1 % 12.0-15.5 PLT (test code = 777-3) 338 See_Comment [Automated messa ge] The system which generated this result transmitted reference range: 166 - 358 10*3/?L. The reference range was not used to interpret this result as normal/abnormal. MPV (test code = 47079-4) 10.1 fL 9.5-12.9 NRBC/100 WBC (test code = 5098532356) 0.0 See_Comment [Automated Capriza ssage] The system which generated this result transmitted reference range: 0.0 - 10.0 /100 WBCs. The reference range was not used to interpret this result as normal/abnormal. NRBC x10^3 (test code = 5104790942) See_Comment [Automated messa ge] The system which generated this result transmitted reference range: 10*3/?L. The reference range was not used to interpret this result as normal/abnormal. GRAN MAT (NEUT) % (test code = 770-8) 72.3 % IMM GRAN % (test code = 8343929082) 0.90 % LYMPH % (test code = 736-9) 18.3 % MONO % (test code = 5905-5) 5.8 % EOS % (test code = 713-8) 2.5 % BASO % (test code = 706-2) 0.2 % GRAN MAT x10^3(ANC) (test code = 1035675399) 7.24 10*3/uL 1.88-7.09 H IMM GRAN x10^3 (test code = 8398623761) 0.09 10*3/uL 0.00-0.06 H LYMPH x10^3 (test code = 731-0) 1.83 10*3/uL 1.32-3.29 MONO x10^3 (test code = 742-7) 0.58 10*3/uL 0.33-0.92 EOS x10^3 (test code = 711-2) 0.25 10*3/uL 0.03-0.39 BASO x10^3 (test code = 704-7) 0.01-0.07 Lab Interpretation (test code = 09800-6) [facility]normal [facility] (84407)2022-07-25 03:39:13* Test Item Value Reference Range Interpretation Comme nts NA (test code = 3224141595) 138 mmol/L 135-145 K (test code = 0173034710) 3.1 mmol/L 3.5-5.0 L CL (test code = 4823779998) 109 mmol/L 98-108 H CO2 TOTAL (test code = 8830412407) 21 mmol/L 23-31 L AGAP (test code = 8974345308) 8 2-16 BUN (test code = 6996885599) 12 mg/dL 7-23 GLUCOSE (test code = 2216096490) 100 mg/dL 70-110 CREATININE (test code = 9493018965) 0.44 mg/dL 0.50-1.04 L TOTAL BILI (test code = 8993046505) 1.1 mg/dL 0.1-1.1 CALCIUM (test code = 8239313280) 8.1 mg/dL 8.6-10.6 L T PROTEIN (test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
[2023-12-03 00:11] LABS: Specific Gravity 1.028 (1.005-1.030)
[2023-12-03] MEDS ORDERED: LIDOCAINE 4% PATCH ONE (01:04)
[2023-12-03] MEDS ORDERED: KETOROLAC 30 MG/ML INJ ONE (01:04)
[2023-12-03] MEDS ORDERED: ACETAMINOPHEN 500 MG TAB ONE (01:04)
[2023-12-03] MEDS ORDERED: methocarbamoL 500 MG TAB ONE (01:04)
--- NOTE | 2023-12-03 01:09 | ER ---
Nurse's Notes [facility] Name: Sil Gaytan Age: 23 yrs Sex: Female : 2000 Arrival Date: 12/02/2023 Time: 22:45 Bed 5 Private MD: Diagnosis: Low back pain Presentation: 12/01 23:01 Chief complaint: Patient states: c/o constant lower back pain starting about 3 weeks al5 ago. patient states it started initially on the R side, but today it is on both sides radiating down both legs. Coronavirus screen: At this time, the client does not indicate any symptoms associated with coronavirus-19. Ebola Screen: No symptoms or risks identified at this time. Initial Sepsis Screen: Does the patient meet any 2 criteria? HR > 90 bpm. No. Patient's initial sepsis screen is negative. Does the patient have a suspected source of infection? No. Patient's initial sepsis screen is negative. Risk Assessment: Do you want to hurt yourself or someone else? Patient reports no desire to harm self or others. Onset of symptoms. 23:01 Method Of Arrival: Ambulatory al5 23:01 Acuity: DELMAR 3 al5 Triage Assessment: 23:03 General: Appears in no apparent distress. Behavior is calm, cooperative. Pain: al5 Complains of pain in low back area Pain currently is 7 out of 10 on a pain scale. EENT: No signs and/or symptoms were reported regarding the EENT system. Neuro: Level of Consciousness is awake, alert, obeys commands, Oriented to person, place, time, situation. Cardiovascular: Capillary refill < 3 seconds Patient's skin is warm and dry. Respiratory: Airway is patent Respiratory effort is even, unlabored, Respiratory pattern is regular, symmetrical. GI: No signs and/or symptoms were reported involving the gastrointestinal system. :. : No signs and/or symptoms were reported regarding the genitourinary system. Derm: Skin is intact, Skin is pink, warm \T\ dry. normal. Musculoskeletal: Reports pain in low back area and right low back since three weeks ago. Pain is 7 out of 10 on a pain scale. 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 - Infectious Disease History:: Denies. - Social history:: Smoking status: unknown. Screenin:22 [facility] ED Fall Risk Assessment (Adult) History of falling in the last 3 months, al5 including since admission No falls in past 3 months (0 pts) Confusion or Disorientation No (0 pts) Intoxicated or Sedated No (0 pts) Impaired Gait No (0 pts) Mobility Assist Device Used No (0 pt) Altered Elimination No (0 pt) Score/Fall Risk Level 0 - 2 = Low Risk Oriented to surroundings, Maintained a safe environment, Hourly rounding (assess needs \T\ fall precautionary measures) done. Abuse screen: Denies threats or abuse. Denies injuries from another. Nutritional screening: No deficits noted. Tuberculosis screening: No symptoms or risk factors identified. Assessment: 23:22 Reassessment: see triage assessment. al5 12/02 00:30 Reassessment: Patient appears in no apparent distress at this time. No changes from al5 previously documented assessment. Patient and/or family updated on plan of care and expected duration. Pain level reassessed. Patient is alert, oriented x 3, equal unlabored respirations, skin warm/dry/pink. 01:24 Reassessment: Patient appears in no apparent distress at this time. No changes from al5 previously documented assessment. Patient and/or family updated on plan of care and expected duration. Pain level reassessed. Patient is alert, oriented x 3, equal unlabored respirations, skin warm/dry/pink. patient discharged home with medications for pain. 01:37 Reassessment: Patient appears in no apparent distress at this time. Patient and/or al5 family updated on plan of care and expected duration. Pain level reassessed. Patient is alert, oriented x 3, equal unlabored respirations, skin warm/dry/pink. patient awake and aaox4, ambulatory with assistance Patient states feeling better. Patient states symptoms have improved. Vital Signs: 12/01 23:00 BP 153 / 103; Pulse 95; Resp 18; Pulse Ox 100% on R/A; al5 23:01 BP 139 / 98; Pulse 99; Resp 16; Temp 97.8; Pulse Ox 99% on R/A; Weight 84.82 kg; Height al5 5 ft. 7 in. ; Pain 7/10; 23:16 BP 125 / 82; Pulse 83; Resp 18; Pulse Ox 100% on R/A; al5 23:30 BP 139 / 92; Pulse 89; Resp 18; Pulse Ox 100% on R/A; al5 23:45 BP 143 / 95; Pulse 90; Resp 18; Pulse Ox 100% on R/A; al5 12/02 00:00 BP 140 / 82; Pulse 90; Resp 18; Pulse Ox 100% on R/A; al5 01:03 BP 147 / 94; Pulse 81; Resp 18; Pulse Ox 100% on R/A; al5 12/01 23:01 Body Mass Index 29.29 (84.82 kg, 170.18 cm) al5 23:01 Pain Scale: Adult al5 ED Course: 12/01 22:50 Patient arrived in ED. jj6 22:50 Magan Fink MD is Attending Physician. ec2 23:00 SEAN HUBBARD, RN is Primary Nurse. dd2 23:01 Mary Ann Paige, ABDIFATAH is Primary Nurse. al5 23:03 Triage completed. al5 23:22 Arm band placed on Patient placed in the treatment room, on a stretcher. al5 23:22 No provider procedures requiring assistance completed. al5 23:23 Patient has correct armband on for positive identification. Bed in low position. Call al5 light in reach. Side rails up X 1. Provided Education on: plan of care. 12/02 00:28 Lumbar Spine (3 Views) XRAY In Process Unspecified. EDMS 01:15 Patient did not have IV access during this emergency room visit. al5 Administered Medications: 01:11 Drug: Ketorolac IM 30 mg IM once Route: IM; Site: right deltoid; al5 01:25 Follow up: Response: No adverse reaction; Medication administered at discharge. al5 01:12 Drug: Acetaminophen PO 1000 mg PO once Route: PO; al5 :25 Follow up: Response: No adverse reaction; Medication administered at discharge. al5 01:12 Drug: Methocarbamol PO 500 mg PO once Route: PO; al5 01:25 Follow up: Response: No adverse reaction; Medication administered at discharge. al5 01:12 Drug: Lidoderm Topical Patch 5 % (700 mg/patch) 1 patches Topical once; leave on for 12 al5 hours; cover most painful area; may cut into smaller pieces Route: Topical; Site: affected area; 01:25 Follow up: Response: No adverse reaction; Medication administered at discharge. al5 Medication: 12/01 23:22 VIS not applicable for this client. al5 Outcome: 12/02 01:09 Discharge ordered by . ec2 01:37 Discharged to home ambulatory, with family, al5 01:37 Condition: good 01:37 Discharge instructions given to patient, Instructed on discharge instructions, follow up and referral plans. medication usage, Demonstrated understanding of instructions, follow-up care, medications, Prescriptions given X 1, 01:38 Patient left the ED. al5 Signatures: Dispatcher [employer] Selam Garza6 Magan Fink MD MD ec2 Mary Ann Paige RN RN al5 SEAN HUBBARD RN RN dd2
--- NOTE | 2023-12-03 01:09 | EDPHYS ---
Physician Documentation [facility] Name: Sil Gaytan Age: 23 yrs Sex: Female : 2000 Arrival Date: 12/02/2023 Time: 22:45 Bed 5 Private MD: ED Physician Magan Fink HPI: 12/01 23:08 This 23 yrs old Female presents to ER via Ambulatory with complaints of Low ec2 Back Pain. 23:08 Patient arrives today for evaluation of low back pain ongoing for several weeks. No ec2 trauma, no injury. Pain worse with positional movements. No other concerns.. 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 - Infectious Disease History:: Denies. - Social history:: Smoking status: unknown. ROS: 23:08 Constitutional: as per hpi ec2 Exam: 23:08 Constitutional: GEN: NAD Head: atraumatic Eyes: EOMI Ears: External ears are ec2 normal. CV: regular rate LUNGS: no respiratory distress ABD: non-distended SKIN: no evidence of rashes MSK: no evidence of trauma, minimal L-spine TTP without deformities or crepitus appreciated. Vital Signs: 23:00 BP 153 / 103; Pulse 95; Resp 18; Pulse Ox 100% on R/A; al5 23:01 BP 139 / 98; Pulse 99; Resp 16; Temp 97.8; Pulse Ox 99% on R/A; Weight 84.82 kg; Height al5 5 ft. 7 in. ; Pain 7/10; 23:16 BP 125 / 82; Pulse 83; Resp 18; Pulse Ox 100% on R/A; al5 23:30 BP 139 / 92; Pulse 89; Resp 18; Pulse Ox 100% on R/A; al5 23:45 BP 143 / 95; Pulse 90; Resp 18; Pulse Ox 100% on R/A; al5 12/02 00:00 BP 140 / 82; Pulse 90; Resp 18; Pulse Ox 100% on R/A; al5 01:03 BP 147 / 94; Pulse 81; Resp 18; Pulse Ox 100% on R/A; al5 12/01 23:01 Body Mass Index 29.29 (84.82 kg, 170.18 cm) al5 23:01 Pain Scale: Adult al5 MDM: 12/01 23:00 Patient medically screened. ec2 23:08 Data reviewed: vital signs. ED course: Patient arrives today for evaluation of low back ec2 pain. Examination remarkable for well-appearing nontoxic individuals otherwise in no acute distress. Will obtain lumbar radiograph. Differential includes lumbar strain, doubt fracture. Will give the patient medications for pain. . 12/02 01:09 ED course: Lumbar x-ray with no acute bony pathology. Will discharge home. Return ec2 precautions given.. 12/01 23:07 Order name: Test, Urine; Complete Time: 00:18 ec2 12/01 23:07 Order name: Lumbar Spine (3 Views) XRAY ec2 Administered Medications: 01:11 Drug: Ketorolac IM 30 mg IM once Route: IM; Site: right deltoid; al5 01:25 Follow up: Response: No adverse reaction; Medication administered at discharge. al5 01:12 Drug: Acetaminophen PO 1000 mg PO once Route: PO; al5 01:25 Follow up: Response: No adverse reaction; Medication administered at discharge. al5 01:12 Drug: Methocarbamol PO 500 mg PO once Route: PO; al5 01:25 Follow up: Response: No adverse reaction; Medication administered at discharge. al5 01:12 Drug: Lidoderm Topical Patch 5 % (700 mg/patch) 1 patches Topical once; leave on for 12 al5 hours; cover most painful area; may cut into smaller pieces Route: Topical; Site: affected area; 01:25 Follow up: Response: No adverse reaction; Medication administered at discharge. al5 Disposition Summary: 12/03/23 01:09 Discharge Ordered Notes: Location: Home ec2 Condition: Stable ec2 Diagnosis - Low back pain ec2 Followup: ec2 - With: Private Physician - When: - Reason: Re-evaluation by your physician Discharge Instructions: - Discharge Summary Sheet ec2 - Acute Back Pain, Adult ec2 Forms: - Medication Reconciliation Form ec2 - Antibiotic Education ec2 - Prescription Opioid Use ec2 - Patient Portal Instructions ec2 - Leadership Thank You Letter ec2 Prescriptions: - methocarbamol 500 mg Oral tablet - take 1 tablet ORAL route 4 times per day; 20 tablet; Refills: 0, Product ec2 Selection Permitted Signatures: Dispatcher [employer] Magan Bradshaw MD MD ec2 Mary Ann Paige, RN RN al5
--- NOTE | 2023-12-03 01:10 | RAD REPORT ---
Clinical Indication: Bed Name: 5; low back pain Comparison: None FINDINGS: Lumbar spine: 3 views The AP, lateral and coned-down lumbosacral views of the lumbar spine show five non rib bearing lumbar vertebral segments. There are no acute fractures or spondylolisthesis. The disc spaces are preserved. The posterior elements, s pinous processes and transverse processes are unremarkable. The paraspinal soft tissues are unremarkable. The visualized s acroiliac joints are unremarkable. If there is further concern or neurological abnormalities on clinical exam, MRI or CT of the lumbar s pine may be performed for complete assessment. IMPRESSION: 1. No acute radiographic abnormality of the lumbar spine. Electronically signed by: Manoj Jara MD 12/03/2023 01:05 AM CDT RP Due to temporary technical issues with the PACS/[employer] reporting system, reports are being los d by the in-house radiologist without review as a courtesy to ensure prompt reporting the interpreting radiologist is fully responsible for the content of the report. Transcribed Date/Time: 12/03/2023 1:10 AM
[2023-12-03 01:46] VITALS: TEMP 97.8
[2023-12-03 01:48] VITALS: O2SAT 100
[2023-12-03 01:55] VITALS: BP 147/94
== END 2023-12-03 01:38 | disposition home or self-care (01) ==
LOC: ER 22:45
DX: M54.50 Low back pain, unspecified (principal)
CPT/HCPCS: 81025; 72100; 96372; 99284; J2001

== ENCOUNTER 2024-04-23 23:42 | Emergency (ER) | payer OTHER ==
--- OUTSIDE RECORDS SUMMARY | 2024-04-23 23:56 | XMS REPORT | Continuity of Care Document ---
Author Name Unknown Address [address] [facility] [address] [place] [address] [facility] thconnect Address [address] [facility] [address] [place] [address] Care Team Providers Care Outreach Librarian Name Role Phone Jennifer Rahman Primary Care Physician [phone] KASEY BLANCO Attending Clinician KASEY Petty Attending Clinician NAVA Charlton Attending Clinician Unavailable Nava Chavez Attending Clinician [phone] Jennifer Rahman Attending Clinician [phone] Doctor Unassigned, [place] Attending Clinician U navailWOLFGANG Sow Attending Clinician AlbaroWOLFGANG Downey Attending Clinician Unavaila Wolfgang Martinez MD Attending Clinician + [phone] [facility] Attending Clinician Unavaila ble Lab, Ang - Db Attending Clinician Unavailable JENNIFER GOMEZ Attending Clinician Unavailable JONE DELEON Attending Clinician Unavailable JONE DELEON Attending Clinician Unavailable NARDA BLACKWELL Attending Clinician Unavailable AKINTUSHAR YOUSSEF Attending Clinician Unavail able ANTONETTE LUQUE Attending Clinician Unavaila ble Lab, Ang-Rmchp Attending Clinician Unavailable Akinsijohnathan WHTushar JASON Attending Clinician + Doctor Unassigned, [place] Attending Clinician U navailable MOSHE AGOSTO Attending Clinician Unavailable Visit, Ang-Rmchp Nurse Attending Clinician Unava ilable HETAL NORRIS Attending Clinician Unavailable Hetal Norris MD Attending Clinician [phone] Patt Nova RN Attending Clinician Unavailabl AUSTIN Raygoza Attending Clinician Unavailable Austin Arzola MD Attending Clinician [phone] Antonette Luque CNM Attending Clinician [phone] Risk, Llt-Gsrqr-Pk/High Attending Clinician Unav ailable Shereen Sky MD Attending Clinician [phone] SHEREEN SKY Attending Clinician Unavailable Ultrasound, Ang-Mfm Attending Clinician Unavaila ble EDWIN CAGE Attending Clinician Unavailable Edwin Pacheco Attending Clinician + [phone] David Cooper DO Attending Clinician [phone] SARA SNYDER Attending Clinician Unavaila SARA Kauffman Attending Clinician Unavaila ani Provider, Ang-Rmchp Temp Attending Clinician Tika Niki Jackman Attending Clinician + [phone] NIKI RALPH Attending Clinician Unavailab JAM Neville Attending Clinician Unavailable MARY ANN CRUMP Attending Clinician Unavailable Ernesto Valente Attending Clinician [phone] ERNESTO PEACOCK Attending Clinician UnavailIsaak Warrenia Attending Clinician [phone] Ida ANDRES, Dylan Taylor Attending Clinician Maria PALACIOS CRNA, R Attending Clinician [phone] Jeffery Dumont DO Attending Clinician Zoltan ANDRES, Radha Attending Clinician [phone] Selam Fields Attending Clinician + [phone] SELAM ALVES Attending Clinician Unavailab KASEY Tolentino Admitting Clinician García ARZOLA, AUSTIN HOLM Admitting Clinician Unavailable HETAL NORRIS Admitting Clinician Unavailable JONE DELEON Admitting Clinician Unavailable Jr ANDRES, Hetal Mario Admitting Clinician [phone] Austin Arzola MD Admitting Clinician [phone] SARA SNYDER Admitting Clinician Unavaila ble Payers Payer Name Policy Type Policy Number Effective Date Expirati on Date Source [employer] [id number] 2021 00:00:00 [place] [id number] 2024 00:00:00 Problems Condition Name Condition Details Condition Category Status Onset Date Resolution Date Last Treatment Date Treating Clinician Comments Source Well woman exam Well woman exam Disease Active 09-07 00:00: 00 [facility] History of anxiety and depression History of anxiety and depression Disease Active 2021-02 0 00:00: 00 [facility] Asthma during Asthma during Disease Resolve d 2019-02 0-29 00:00: 00 2024-04-15 00:00:00 2024-04-15 08:41:21 [facility] Declines flu vaccine Declines flu vaccine Disease Resolve d 2021-02 0-27 00:00: 00 2023-08-10 00:00:00 2023-08-10 13:43:35 [facility] Overweight Overweight Disease Resolve d 413 00:00: 00 2023-08-10 00:00:00 2023-08-10 13:43:38 [facility] Routine follow-up Routine follow-up Disease Resolve d 2022-0 6-16 00:00: 00 2022-09-07 00:00:00 2022-09-07 16:20:16 [facility] induced hypertensi on, antepartum induced hypertensi on, antepartum Disease Resolve d 2022-0 6-02 00:00: 00 2022-08-12 00:00:00 2022-08-12 11:06:28 [facility] state state Disease Resolve d 2022-0 6-02 00:00: 00 2022-08-12 00:00:00 2022-08-12 11:06:26 [facility] Obesity (BMI 30-39.9) Obesity (BMI 30-39.9) Disease Resolve d 2022-0 5-28 00:00: 00 2022-08-12 00:00:00 2022-08-12 11:06:23 [facility] Postoperat chris fever Postoperat chris fever Disease Resolve d 2022-0 5-28 00:00: 00 2022-08-12 00:00:00 2022-08-12 11:06:25 [facility] premature rupture of membranes (PPROM) with onset of labor within 24 hours of rupture in third trimester, antepartum premature rupture of membranes (PPROM) with onset of labor within 24 hours of rupture in third trimester, antepartum Disease Resolve d 2022-0 5-25 00:00: 00 2022-08-12 00:00:00 2022-08-12 11:06:31 [facility] 36 weeks gestation of 36 weeks gestation of Disease Resolve d 2022-0 5-25 00:00: 00 2022-08-12 00:00:00 2022-08-12 11:06:07 [facility] Liveborn infant, of mckeon , born in hospital by delivery Liveborn , of mckeon , born in hospital by delivery Disease Resolve d 2022-0 5-25 00:00: 00 2022-08-12 00:00:00 2022-08-12 11:06:18 [facility] UTI in UTI in Disease Resolve d 2022-0 5-24 00:00: 00 2022-08-12 00:00:00 2022-08-12 11:06:35 Overview: Formattin g of this note might be different from the original. Per Dr.Adum mora sent and patient notified [facility] Supervisio n of high-risk Supervisio n of high-risk Disease Resolve d 2022-0 3-02 00:00: 00 2022-08-12 00:00:00 2022-08-12 11:06:33 [facility] Multiparit y Multiparit y Disease Resolve d 2022-0 3-02 00:00: 00 2022-08-12 00:00:00 2022-08-12 11:06:20 [facility] History of pre-eclamp raymond in prior , currently History of pre-eclamp raymond in prior , currently Disease Resolve d 2021-1 0-27 00:00: 00 2022-08-12 00:00:00 2022-08-12 11:06:12 [facility] related nausea, antepartum related nausea, antepartum Disease Resolve d 2021-1 0-27 00:00: 00 2022-08-12 00:00:00 2022-08-12 11:06:30 [facility] History of delivery, currently History of delivery, currently Disease Resolve d 2021-1 0-13 00:00: 00 2022-08-12 00:00:00 2022-08-12 11:06:13 [facility] Missed menses Missed menses Disease Resolve d 2021-1 0-13 00:00: 00 2021-12-23 00:00:00 2021-12-23 09:45:24 [facility] Other general counseling and advice for contracept chris management Other general counseling and advice for contracept chirs management Disease Resolve d 2021-0 8-02 00:00: 00 2021-12-23 00:00:00 2021-12-23 09:45:16 [facility] Elevated blood pressure reading without diagnosis of hypertensi on Elevated blood pressure reading without diagnosis of hypertensi on Disease Resolve d 2021-0 8-02 00:00: 00 2021-12-23 00:00:00 2021-12-23 09:45:21 [facility] Encounter for surveillan ce of contracept hcris pills Encounter for surveillan ce of contracept chris pills Disease Resolve d 2020-02 1- 00:00: 00 2021-12-23 00:00:00 2021-12-23 09:45:20 [facility] with inconclusi ve viability, single or unspecifie d fetus with inconclusi ve viability, single or unspecifie d fetus Disease Resolve d 0 4-13 00:00: 00 2021-12-23 00:00:00 2021-12-23 09:45:15 [facility] with inconclusi ve viability, single or unspecifie d fetus with inconclusi ve viability, single or unspecifie d fetus Disease Resolve d 0 4-13 00:00: 00 2021-12-23 00:00:00 2021-12-23 09:45:15 [facility] Well woman exam Well woman exam Disease Resolve d 7-29 00:00: 00 2021-01-18 00:00:00 2021-01-18 16:29:36 [facility] care and examinatio n of lactating mother care and examinatio n of lactating mother Disease Resolve d 0 6-22 00:00: 00 2021-01-18 00:00:00 2021-01-18 16:29:35 [facility] Stress at home Stress at home Disease Resolve d 2019-02 1-24 00:00: 00 2021-01-18 00:00:00 2021-01-18 16:29:33 [facility] Depression affecting Depression affecting Disease Resolve d 2019-02 0-29 00:00: 00 2021-01-18 00:00:00 2021-01-18 16:29:31 [facility] premature rupture of membranes with onset of labor within 24 hours of rupture in third trimester premature rupture of membranes with onset of labor within 24 hours of rupture in third trimester Disease Resolve d 2020-0 5-31 00:00: 00 2020-08-18 00:00:00 2020-08-18 13:53:11 [facility] Liveborn infant, of mckeon , born in hospital by vaginal delivery Liveborn infant, of mckeon , born in hospital by vaginal delivery Disease Resolve d 2020-0 5-31 00:00: 00 2020-08-18 00:00:00 2020-08-18 13:53:14 [facility] Severe pre-eclamp raymond in third trimester Severe pre-eclamp raymond in third trimester Disease Resolve d 2020-0 5-30 00:00: 00 2020-08-18 00:00:00 2020-08-18 13:53:09 [facility] 35 weeks gestation of 35 weeks gestation of Disease Resolve d 2020-0 5-30 00:00: 00 2020-08-18 00:00:00 2020-08-18 13:53:19 [facility] uterine contractio ns in third trimester, antepartum uterine contractio ns in third trimester, antepartum Disease Resolve d 2020-0 5-30 00:00: 00 2020-08-18 00:00:00 2020-08-18 13:53:21 [facility] Back pain affecting in third trimester Back pain affecting in third trimester Disease Resolve d 2020-0 5-11 00:00: 00 2020-08-18 00:00:00 2020-08-18 13:53:17 [facility] Chlamydia infection affecting Chlamydia infection affecting Disease Resolve d 2019-1 0-30 00:00: 00 2020-08-18 00:00:00 2020-08-18 13:53:23 [facility] High risk teen in second trimester High risk teen in second trimester Disease Resolve d 2020-1 0-29 00:00: 00 2020-07-26 00:00:00 2020-07-26 17:32:33 [facility] Asthma Asthma Disease Resolve d 03-22 00:00: 00 2020-04-23 00:00:00 2020-04-23 15:56:52 [facility] Refused influenza vaccine Refused influenza vaccine Disease Resolve d 2019-02 00:00: 00 2020-02-18 00:00:00 2020-02-18 14:30:51 [facility] Flu-like symptoms Flu-like symptoms Disease Resolve d 03-22 00:00: 00 2019-12-26 00:00:00 2019-12-26 14:33:40 [facility] Screen for STD (sexually transmitte d disease) Screen for STD (sexually transmitte d disease) Disease Resolve d 2018-02 00:00: 00 2019-12-26 00:00:00 2019-12-26 14:33:36 [facility] Allergies, Adverse Reactions, Alerts Allergy Name Allergy Type Status Severity Reaction(s) Onset Date Inactive Date Treating Clinician Comments Source Codeine Drug Allergy Active Cough 2019-02 00:00: 00 [facility] CODEINE DRUG INGREDI Active COUGH 2019-02 00:00: 00 [facility] Predniso lone Propensi ty to adverse reaction s Active Rash 06-03 00:00: 00 [facility] Penicill ins Propensi ty to adverse reaction s Active Rash 06-03 00:00: 00 [facility] PENICILL INS Drug Class Active Rash 06-03 00:00: 00 [facility] PREDNISO LONE DRUG INGREDI Active Rash 06-03 00:00: 00 [facility] Penicill ins Propensi ty to adverse reaction s Active Rash 06-03 00:00: 00 [facility] Penicill ins Propensi ty to adverse reaction s Active Rash 06-03 00:00: 00 [facility] Social History Social Habit Start Date Stop Date Quantity Comments Source ASSERTION 2021-11-25 00:00:00 [facility] History SDOH Alcohol Std Drinks [facility] History SDOH Alcohol Binge [facility] Alcoholic beverage intake 2024-04-15 00:00:00 2024-04-15 00:00:00 Current drinker of alcohol (finding) [facility] Alcohol Comment 2023-11-02 00:00:00 2023-11-02 00:00:00 occasional [facility] History of Social function 2023-09-21 00:00:00 2023-09-21 00:00:00 [facility] Alcohol intake 2022-09-07 00:00:00 2022-09-07 00:00:00 Ex-drinker (finding) [facility] Exposure to SARS-CoV-2 (event) 2022-07-11 00:00:00 2022-07-21 10:35:00 Not sure [facility] Tobacco use and exposure 2022-07-21 00:00:00 2022-07-21 00:00:00 Smokeless tobacco non-user [facility] History SDOH Alcohol Frequency 2018-12-20 00:00:00 2018-12-20 00:00:00 1 [facility] Sex assigned at 2002 00:00:00 2000 00:00:00 [facility] Smoking Status Start Date Stop Date Source Never smoked tobacco [facility] Medications Ordered Medication Name Filled Medication Name Start Date Stop Date Current Medication? Ordering Clinician Indication Dosage Frequency Signature (SIG) Comments Components Source norgestimat e-ethinyl estradioL 0.18/0.215/ 0.25 mg-35 mcg (28) tablet 04-15 00:00: 00 Yes [id number] 1{tbl} Take 1 tablet by mouth in the morning. [facility] norgestimat e-ethinyl estradioL 0.18/0.215/ 0.25 mg-35 mcg (28) tablet 2023-02 00:00: 00 04-15 00:00 :00 No [id number] 1{tbl} Take 1 tablet by mouth in the morning. [facility] hydroCHLORO thiazide 25 mg tablet 11-01 00:00: 00 Yes [id number] 25mg Take 1 tablet by mouth in the morning. [facility] norethindro ne 0.35 mg tablet 09-20 00:00: 00 01-14 00:00 :00 No [id number] 1{tbl} Take 1 tablet by mouth in the morning. [facility] methocarbam oL (ROBAXIN) tablet 500 mg 09-16 08:30: 00 09-16 08:09 :00 No 500mg 500 mg, Oral, ONCE NOW, 1 dose, On 09/17/23 at 0330, Routine [facility] ketorolac (TORADOL) injection 30 mg 09-16 08:30: 00 09-16 08:10 :00 No 30mg 30 mg, Intramuscu lar, ONCE, 1 dose, On 09/17/23 at 0330, Routine [facility] ibuprofen 800 mg tablet 09-16 00:00: 00 11-01 00:00 :00 No [id number] 800mg Take 1 tablet by mouth every 6 (six) hours as needed for Pain (scale 1-3) for up to 30 doses. [facility] methocarbam oL 750 mg tablet 09-16 00:00: 00 09-22 04:59 :00 No [id number] 750mg Take 1 tablet by mouth 4 (four) times daily for 20 doses. [facility] polyethylen e glycol 3350 (MIRALAX) 17 gram powder 09-16 00:00: 00 09-20 04:59 :00 No [id number] 1{packe t} Take 1 Packet by mouth in the morning for 3 days. [facility] acetaminoph en (TYLENOL) tablet 650 mg 08-26 03:15: 00 08-26 03:19 :00 No 650mg 650 mg, Oral, ONCE, 1 dose, On 08/26/23 at 2215, YULY [facility] copper (PARAGARD T 380A) IUD 1 Intra Uterine Device 08-23 14:00: 00 08-23 13:21 :00 No [id number] 1{IUD} 1 Intra Uterine Device, Intrauteri ne, ONCE, 1 dose, On Alissa 08/24/23 at 0900, Routine [facility] doxycycline hyclate 100 mg capsule 08-14 00:00: 00 08-22 04:59 :00 No [id number] 100mg Take 1 capsule by mouth every 12 (twelve) hours for 7 days. [facility] hydroCHLORO thiazide 25 mg tablet 08-09 00:00: 00 11-01 00:00 :00 No [id number] 25mg Take 1 tablet by mouth in the morning. [facility] CEPHALEXIN ORAL 09-07 15:39: 00 11-01 00:00 :00 No Take by mouth 2 (two) times daily. [facility] norethindro ne 0.35 mg tablet 09-07 00:00: 00 09-20 00:00 :00 No [id number] 1{tbl} Take 1 tablet by mouth in the morning. [facility] acetaminoph en (TYLENOL) tablet 650 mg 07-29 13:29: 04 Yes 650mg 650 mg, Oral, Q6HPRN, Starting on Mon07/29/22 at 0829, Until Discontinu ed, Routine, Pain (scale 1-3), Pain (scale 4-6) [facility] labetaloL (NORMODYNE) tablet 200 mg 07-29 06:00: 00 Yes 200mg 200 mg, Oral, Q12H, First dose on Mon07/29/22 at 0100, Until Discontinu ed, Routine [facility] labetaloL 200 mg tablet 07-29 00:00: 00 11-01 00:00 :00 No [id number] 200mg Take 1 tablet by mouth every 12 (twelve) hours. [facility] KCL (KLOR-CON M20) tablet 40 mEq 07-25 06:15: 00 07-25 13:41 :00 No 40meq 40 mEq, Oral, DAILY, 2 doses, First dose on Mon07/25/22 at 0115, Last dose on Mon07/25/22 at 0900, Routine [facility] ferrous sulfate tablet 325 mg 07-25 01:00: 00 Yes 325mg 325 mg, Oral, BID, First dose on Mon07/24/22 at 2000, Until Discontinu ed, Routine [facility] ceFAZolin (ANCEF) 1,000 mg in NaCl 0.9% [...]
D uration of Therapy: Other (see Comments) [facility] rho(D) immune globulin (RHOGAM) syringe 300 mcg 07-24 15:24: 51 Yes 300ug 300 mcg, Intramuscu lar, ONCE, For 1 dose, Conditiona l, Routine [facility] HYDROcodone -acetaminop hen (NORCO 5) 5-325 mg tablet 2 tablet 07-24 15:23: 27 Yes 2{tbl} 2 tablet, Oral, Q6HPRN, Starting on Mon07/24/22 at 1023, Until Discontinu ed, Routine, Pain (scale 7-10), Alternate with Ibuprofen [facility] HYDROcodone -acetaminop hen (NORCO 5) 5-325 mg tablet 1 tablet 07-24 15:23: 22 Yes 1{tbl} 1 tablet, Oral, Q6HPRN, Starting on Mon07/24/22 at 1023, Until Discontinu ed, Routine, Pain (scale 4-6), Alternate with Ibuprofen [facility] diphenhydrA MINE (BENADRYL) injection 25 mg 07-24 15:21: 28 Yes 25mg 25 mg, Slow IV Push, Q6HPRN, Starting on Mon07/24/22 at 1021, Until Discontinu ed, Routine, Itching [facility] diphenhydrA MINE (BENADRYL) tablet 25 mg 07-24 15:21: 28 Yes 25mg 25 mg, Oral, Q6HPRN, Starting on Mon07/24/22 at 1021, Until Discontinu ed, Routine, Sleep, Itching [facility] ondansetron (ZOFRAN (PF)) injection 4 mg 07-24 15:21: 28 Yes 4mg 4 mg, Slow IV Push, Q8HPRN, Starting on Mon07/24/22 at 1021, Until Discontinu ed, Routine, Nausea and Vomiting (N/V) [facility] bisacodyL (DULCOLAX) suppository 10 mg 07-24 15:: Yes 10mg 10 mg, Rectal, QDAILYPRN, Starting on Mon07/24/22 at 102, Until Discontinu ed, Routine, Constipati on [facility] simethicone (GAS RELIEF (SIMETHICON E)) chewable tablet 160 mg 07-24 15:21: 28 Yes 160mg 160 mg, Oral, PC+HSPRN, Starting on Mon07/24/22 at 1021, Until Discontinu ed, Routine, Gas [facility] docusate (COLACE) capsule 200 mg 07-24 15:21: 28 Yes 200mg 200 mg, Oral, QDAILYPRN, Starting on Mon07/24/22 at 1021, Until Discontinu ed, Routine, Constipati on [facility] magnesium hydroxide (MILK OF MAGNESIA) 400 mg/5 mL suspension 30 mL 07-24 15:21: 28 Yes 30mL 30 mL, Oral, QDAILYPRN, Starting on Mon07/24/22 at 1021, Until Discontinu ed, Routine, Constipati on [facility] lactated ringers IV infusion 1,000 mL 07-24 15:21: 07-24 16:25 :00 No 1000mL at 125 mL/hr, 1,000 mL, IV Infusion, PRN, 1 dose, Starting on Mon07/24/22 at 1021, Until Discontinu ed, Routine [facility] 25/iron fum/folic/d betancur (-1 ORAL) 07-23 12:50: 40 07-23 00:00 :00 No Take by mouth. [facility] HYDROcodone -acetaminop hen (NORCO 5) 5-325 mg tablet 1 tablet 07-23 01:41: 26 07-25 01:40 :26 No 1{tbl} 1 tablet, Oral, Q6HPRN, Starting on Mon07/22/22 at 2040, Until Mon07/24/22 at 2039, Routine, Pain (scale 4-6) [facility] Nitrofurant oin&Nit. Macrocryst (MACROBID) 100 mg capsule 100 mg 07-23 01:00: 00 07-30 00:59 :00 No 100mg 100 mg, Oral, BID, 14 doses, First dose (after last modificati on) on Mon07/22/22 at 2000, Last dose on Mon07/29/22 at 0800, Routine
Reason for Anti-Infec tive: Documented Infection< br>Documen brendan Infection Site: Urine
D uration of Therapy: 7 days [facility] ibuprofen 600 mg tablet 07-23 00:00: 00 Yes [id number] 600mg Take 1 tablet by mouth every 6 (six) hours as needed (Pain). Take with food or milk. [facility] vitamin w/FA tablet 07-23 00:00: 00 Yes [id number] 1{tbl} Take 1 tablet by mouth in the morning. [facility] vitamin w/FA tablet 07-23 00:00: 00 11-01 00:00 :00 No [id number] 1{tbl} Take 1 tablet by mouth in the morning. [facility] docusate 100 mg capsule 07-23 00:00: 00 11-01 00:00 :00 No [id number] 200mg Take 2 capsules by mouth once daily as needed for Constipati on. [facility] ferrous sulfate 325 mg (65 mg iron) tablet 07-23 00:00: 00 11-01 00:00 :00 No [id number] 325mg Take 1 tablet by mouth in the morning and 1 tablet in the evening. [facility] HYDROcodone -acetaminop hen 5-325 mg tablet 07-23 00:00: 00 07-31 04:59 :00 No [id number] 1{tbl} Take 1 tablet by mouth every 6 (six) hours as needed (Pain scale above 4) for up to 7 days. Do not exceed 3 grams of acetaminop hen in 24 hours. Indication s: acute pain [facility] ibuprofen (IBU) tablet 600 mg 07-22 23:00: 00 Yes 600mg 600 mg, Oral, Q6H, First dose on Mon07/22/22 at 1800, Until Discontinu ed, Routine [facility] acetaminoph en (TYLENOL) tablet 650 mg 07-22 20:00: 00 Yes 650mg 650 mg, Oral, Q6HPRN, Starting on Mon07/22/22 at 1500, Until Discontinu ed, Routine, Pain [facility] acetaminoph en ADULT (OFIRMEV) injection 1,000 mg 07-22 02:00: 00 07-22 15:02 :00 No 1000mg 1,000 mg, IV Infusion, at 400 mL/hr Administer over 15 Minutes, Q6H, 3 doses, First dose (after last modificati on) on Mon07/21/22 at 2100, Last dose on Mon07/22/22 at 0600, Routine
Indicatio n: Perioperat chris Patient [facility] ketorolac (TORADOL) injection 30 mg 07-21 23:00: 00 07-22 16:43 :00 No 30mg 30 mg, Slow IV Push, Q6H, 4 doses, First dose on Mon07/21/22 at 1800, Last dose on Mon07/22/22 at 1200, Routine [facility] lactated ringers IV infusion 1,000 mL 07-21 21:30: 00 07-21 20:12 :06 No 1000mL at 125 mL/hr, 1,000 mL, IV Infusion, ONCE, 1 dose, On Mon07/21/22 at 1630, Routine [facility] diphenhydrA MINE (BENADRYL) injection 25 mg 07-21 20:34: 05 Yes 25mg 25 mg, Slow IV Push, Q6HPRN, Starting on Mon07/21/22 at 1534, Until Discontinu ed, Routine, Itching [facility] diphenhydrA MINE (BENADRYL) tablet 25 mg 07-21 20:34: 05 Yes 25mg 25 mg, Oral, Q6HPRN, Starting on Mon07/21/22 at 1534, Until Discontinu ed, Routine, Sleep, Itching [facility] ondansetron (ZOFRAN (PF)) injection 4 mg 07-21 20:34: 05 Yes 4mg 4 mg, Slow IV Push, Q8HPRN, Starting on Mon07/21/22 at 1534, Until Discontinu ed, Routine, Nausea and Vomiting (N/V) [facility] bisacodyL (DULCOLAX) suppository 10 mg 07-21 20:34: 05 Yes 10mg 10 mg, Rectal, QDAILYPRN, Starting on Mon07/21/22 at 1534, Until Discontinu ed, Routine, Constipati on [facility] simethicone (GAS RELIEF (SIMETHICON E)) chewable tablet 160 mg 07-21 20:34: 05 Yes 160mg 160 mg, Oral, PC+HSPRN, Starting on Mon07/21/22 at 1534, Until Discontinu ed, Routine, Gas [facility] docusate (COLACE) capsule 200 mg 07-21 20:34: 05 Yes 200mg 200 mg, Oral, QDAILYPRN, Starting on Mon07/21/22 at 1534, Until Discontinu ed, Routine, Constipati on [facility] magnesium hydroxide (MILK OF MAGNESIA) 400 mg/5 mL suspension 30 mL 07-21 20:34: 05 Yes 30mL 30 mL, Oral, QDAILYPRN, Starting on Alissa 07/21/22 at 1534, Until Discontinu ed, Routine, Constipati on [facility] lactated ringers IV infusion 1,000 mL 07-21 20:34: 05 07-22 00:14 :00 No 1000mL at 125 mL/hr, 1,000 mL, IV Infusion, PRN, 1 dose, Starting on Alissa 07/21/22 at 1534, Until Discontinu ed, Routine [facility] ceFAZolin (ANCEF) 2,000 mg in NaCl 0.9% (NS) 100 mL MINI-BAG 07-21 19:30: 00 07-21 19:07 :00 No 2000mg 2,000 mg, IV Piggyback, ONCE, 1 dose, On Mon07/21/22 at 1430, Administer over 30 Minutes, 100 mL
Reas on for Anti-Infec tive: Surgical Prophylaxi s
Surgi lottie Prophylaxi s: Abdominal< br>Duratio n of therapy: within 24 hours of surgery [facility] terbutaline (BRETHINE) injection 0.25 mg 07-21 16:37: 33 07-21 20:41 :35 No .25mg 0.25 mg, Subcutaneo us, Q15MIN PRN, 3 doses, Starting on Mon07/21/22 at 1137, Until Alissa 07/21/22 at 1541, Routine, Tachysysto le with NRFHT [facility] sodium citrate-cit diego acid (BICITRA) 500-334 mg/5 mL solution 30 mL 07-21 16:32: 59 07-21 18:32 :00 No 30mL 30 mL, Oral, PRE-PROCED URE ONCE, 1 dose, Starting on Alissa 07/21/22 at 1132, Until Discontinu ed, Routine, Surgery/Pr ocedure [facility] lactated ringers IV infusion 500 mL 07-21 16:32: 59 07-21 20:41 :35 No 500mL at 999 mL/hr, 500 mL, IV Infusion, PRN - SEE INSTRUCTIO NS, Starting on Alissa 07/21/22 at 1132, Until Alissa 07/21/22 at 1541, Routine [facility] [id number] IV infusion 1,000 mL 07-21 16:32: 59 07-21 20:41 :35 No 1000mL at 1-125 mL/hr, IV Infusion, TITRATE, Starting on Alissa 07/21/22 at 1132, Until Alissa 07/21/22 at 1541, Routine [facility] 25/iron fum/folic/d betancur (-1 ORAL) 07-21 11:32: 19 Yes Take by mouth. [facility] Nitrofurant oin&Nit. Macrocryst 100 mg capsule 07-19 00:00: 00 07-24 00:00 :00 No [id number] 100mg Take 1 capsule by mouth in the morning and 1 capsule in the evening. [facility] 25/iron fum/folic/d betancur (-1 ORAL) 07-17 12:50: 57 Yes Take by mouth. [facility] 25/iron fum/folic/d betancur (-1 ORAL) 07-11 03:19: 16 Yes Take by mouth. [facility] terbutaline (BRETHINE) injection 0.25 mg 07-06 08:45: 00 07-06 07:59 :00 No .25mg 0.25 mg, Subcutaneo us, ONCE, 1 dose, On Mon07/06/22 at 0345, Routine [facility] NaCl 0.9% (NS) bolus infusion 1,000 mL 07-06 06:30: 00 07-06 06:30 :27 No 1000mL at 999 mL/hr, 1,000 mL, IV Infusion, ONCE, 1 dose, On Mon07/06/22 at 0130, STAT [facility] 25/iron fum/folic/d betancur (-1 ORAL) 07-06 05:26: 51 Yes Take by mouth. [facility] metroNIDAZO LE 500 mg tablet 04-14 00:00: 00 04-22 05:59 :00 No [id number] 500mg Take 1 tablet by mouth in the morning and 1 tablet in the evening. Do all this for 7 days. [facility] hydroxyprog esterone(PF ) (KATHLEEN AUTO-INJECT OR) 275 mg/1.1 mL injection 275 mg 03-31 06:00: 00 07-21 04:59 :00 No [id number] 275mg [facility] hydroxyprog esterone(PF ) (KATHLEEN AUTO-INJECT OR) 275 mg/1.1 mL injection 275 mg 03-24 16:45: 00 03-24 15:59 :00 No [id number] 275mg [facility] hydroxyprog esterone,PF , 275 mg/1.1 mL injection 03-07 00:00: 00 07-21 00:00 :00 No [id number] 275mg inject 1.1 mL under the skin weekly. [facility] hydroxyprog esterone caproate, ppres, 250 mg/mL injection 2021-02 00:00: 00 Yes [id number] 250mg 1 mL by Intramuscu lar route weekly. [facility] HYDROXYprog est,PF,,pre g presv, 250 mg/mL (1 mL) injection 2021-02 00:00: 00 07-21 00:00 :00 No [facility] hydroxyprog esterone 250 mg/mL injection 2021-02 00:00: 00 03-07 00:00 :00 No [id number] 250mg 1 mL by Intramuscu lar route weekly. [facility] chlorhexidi ne 0.12 % mouthwash 2021-02 2- 00:00: 00 07-21 00:00 :00 No AFTER BRUSHING TEETH, SWISH 15ML IN MOUTH FOR 30 SECONDS THEN SPIT OUT TWICE DAILY [facility] 25/iron fum/folic/d betancur (-1 ORAL) 2021-02 09:26: 35 Yes Take by mouth. [facility] PROAIR HFA 90 mcg/actuati on inhaler 10-26 00:00: 00 07-23 00:00 :00 No [facility] norgestimat e-ethinyl estradioL (TRI-SPRINT EC) 0.18/0.215/ 0.25 mg-35 mcg (28) tablet 10-12 00:00: 00 Yes [id number] 1{tbl} Take 1 tablet by mouth in the morning. [facility] norgestimat e-ethinyl estradioL (ORTHO TRI-CYCLEN, 28,) 0.18/0.215/ 0.25 mg-35 mcg (28) tablet 2020-02 00:00: 00 12-09 00:00 :00 No [id number] 1{tbl} Take 1 tablet by mouth daily. [facility] Immunizations Ordered Immunization Name Filled Immunization Name Date Status Comments Source TDAP 2022-05-26 00:00:00 Completed [facility] TDAP 2022-05-26 00:00:00 Completed [facility] TDAP 2022-05-26 00:00:00 Completed [facility] TDAP 2022-05-26 00:00:00 Completed [facility] TDAP 2022-05-26 00:00:00 Completed [facility] TDAP 2022-05-26 00:00:00 Completed [facility] TDAP 2022-05-26 00:00:00 Completed [facility] TDAP 2022-05-26 00:00:00 Completed [facility] TDAP 2022-05-26 00:00:00 Completed [facility] TDAP 2022-05-26 00:00:00 Completed [facility] TDAP 2022-05-26 00:00:00 Completed [facility] TDAP 2022-05-26 00:00:00 Completed [facility] TDAP 2022-05-26 00:00:00 Completed [facility] TDAP 2022-05-26 00:00:00 Completed [facility] TDAP 2022-05-26 00:00:00 Completed [facility] TDAP 2022-05-26 00:00:00 Completed [facility] TDAP 2022-05-26 00:00:00 Completed [facility] TDAP 2022-05-26 00:00:00 Completed [facility] TDAP 2022-05-26 00:00:00 Completed [facility] TDAP 2022-05-26 00:00:00 Completed [facility] TDAP 2022-05-26 00:00:00 Completed [facility] TDAP 2022-05-26 00:00:00 Completed [facility] TDAP 2022-05-26 00:00:00 Completed TDAP 2020-06-09 00:00:00 Completed [facility] TDAP 2020-06-09 00:00:00 Completed [facility] TDAP 2020-06-09 00:00:00 Completed [facility] TDAP 2020-06-09 00:00:00 Completed [facility] TDAP 2020-06-09 00:00:00 Completed [facility] TDAP 2020-06-09 00:00:00 Completed [facility] TDAP 2020-06-09 00:00:00 Completed [facility] TDAP 2020-06-09 00:00:00 Completed [facility] TDAP 2020-06-09 00:00:00 Completed [facility] TDAP 2020-06-09 00:00:00 Completed [facility] TDAP 2020-06-09 00:00:00 Completed [facility] TDAP 2020-06-09 00:00:00 Completed [facility] TDAP 2020-06-09 00:00:00 Completed [facility] TDAP 2020-06-09 00:00:00 Completed [facility] TDAP 2020-06-09 00:00:00 Completed [facility] TDAP 2020-06-09 00:00:00 Completed [facility] TDAP 2020-06-09 00:00:00 Completed [facility] TDAP 2020-06-09 00:00:00 Completed [facility] TDAP 2020-06-09 00:00:00 Completed [facility] TDAP 2020-06-09 00:00:00 Completed [facility] TDAP 2020-06-09 00:00:00 Completed [facility] TDAP 2020-06-09 00:00:00 Completed [facility] TDAP 2020-06-09 00:00:00 Completed [facility] TDAP 2020-06-09 00:00:00 Completed [facility] TDAP 2020-06-09 00:00:00 Completed [facility] TDAP 2020-06-09 00:00:00 Completed [facility] TDAP 2020-06-09 00:00:00 Completed [facility] TDAP 2020-06-09 00:00:00 Completed [facility] TDAP 2020-06-09 00:00:00 Completed [facility] TDAP 2020-06-09 00:00:00 Completed [facility] TDAP 2020-06-09 00:00:00 Completed [facility] TDAP 2020-06-09 00:00:00 Completed [facility] TDAP 2020-06-09 00:00:00 Completed [facility] TDAP 2020-06-09 00:00:00 Completed [facility] TDAP 2020-06-09 00:00:00 Completed [facility] TDAP 2020-06-09 00:00:00 Completed [facility] TDAP 2020-06-09 00:00:00 Completed [facility] TDAP 2020-06-09 00:00:00 Completed [facility] TDAP 2020-06-09 00:00:00 Completed [facility] TDAP 2020-06-09 00:00:00 Completed [facility] TDAP 2020-06-09 00:00:00 Completed [facility] TDAP 2020-06-09 00:00:00 Completed [facility] TDAP 2020-06-09 00:00:00 Completed [facility] TDAP 2020-06-09 00:00:00 Completed [facility] TDAP 2020-06-09 00:00:00 Completed [facility] TDAP 2020-06-09 00:00:00 Completed [facility] TDAP 2020-06-09 00:00:00 Completed [facility] TDAP 2020-06-09 00:00:00 Completed [facility] TDAP 2020-06-09 00:00:00 Completed [facility] TDAP 2020-06-09 00:00:00 Completed [facility] TDAP 2020-06-09 00:00:00 Completed [facility] TDAP 2020-06-09 00:00:00 Completed [employer] Vaccine Quad .5 mL IM 6+ MO 2020-01-21 00:00:00 Completed [facility] Influenza Virus Vaccine Quad .5 mL IM 6+ MO 2020-01-21 00:00:00 Completed [facility] Influenza Virus Vaccine Quad .5 mL IM 6+ MO 2020-01-21 00:00:00 Completed [facility] Influenza Virus Vaccine Quad .5 mL IM 6+ MO 2020-01-21 00:00:00 Completed [facility] Influenza Virus Vaccine Quad .5 mL IM 6+ MO 2020-01-21 00:00:00 Completed [facility] Influenza Virus Vaccine Quad .5 mL IM 6+ MO 2020-01-21 00:00:00 Completed [facility] Influenza Virus Vaccine Quad .5 mL IM 6+ MO 2020-01-21 00:00:00 Completed [facility] Influenza Virus Vaccine Quad .5 mL IM 6+ MO 2020-01-21 00:00:00 Completed [facility] Influenza Virus Vaccine Quad .5 mL IM 6+ MO 2020-01-21 00:00:00 Completed [facility] Influenza Virus Vaccine Quad .5 mL IM 6+ MO 2020-01-21 00:00:00 Completed [facility] Influenza Virus Vaccine Quad .5 mL IM 6+ MO 2020-01-21 00:00:00 Completed [facility] Influenza Virus Vaccine Quad .5 mL IM 6+ MO 2020-01-21 00:00:00 Completed [facility] Influenza Virus Vaccine Quad .5 mL IM 6+ MO 2020-01-21 00:00:00 Completed [facility] Influenza Virus Vaccine Quad .5 mL IM 6+ MO 2020-01-21 00:00:00 Completed [facility] Influenza Virus Vaccine Quad .5 mL IM 6+ MO 2020-01-21 00:00:00 Completed [facility] Influenza Virus Vaccine Quad .5 mL IM 6+ MO 2020-01-21 00:00:00 Completed [facility] Influenza Virus Vaccine Quad .5 mL IM 6+ MO 2020-01-21 00:00:00 Completed [facility] Influenza Virus Vaccine Quad .5 mL IM 6+ MO 2020-01-21 00:00:00 Completed [facility] Influenza Virus Vaccine Quad .5 mL IM 6+ MO 2020-01-21 00:00:00 Completed [facility] Influenza Virus Vaccine Quad .5 mL IM 6+ MO 2020-01-21 00:00:00 Completed [facility] Influenza Virus Vaccine Quad .5 mL IM 6+ MO 2020-01-21 00:00:00 Completed [facility] Influenza Virus Vaccine Quad .5 mL IM 6+ MO 2020-01-21 00:00:00 Completed [facility] Influenza Virus Vaccine Quad .5 mL IM 6+ MO 2020-01-21 00:00:00 Completed [facility] Influenza Virus Vaccine Quad .5 mL IM 6+ MO 2020-01-21 00:00:00 Completed [facility] Influenza Virus Vaccine Quad .5 mL IM 6+ MO 2020-01-21 00:00:00 Completed [facility] Influenza Virus Vaccine Quad .5 mL IM 6+ MO 2020-01-21 00:00:00 Completed [facility] Influenza Virus Vaccine Quad .5 mL IM 6+ MO 2020-01-21 00:00:00 Completed [facility] Influenza Virus Vaccine Quad .5 mL IM 6+ MO 2020-01-21 00:00:00 Completed [facility] Influenza Virus Vaccine Quad .5 mL IM 6+ MO 2020-01-21 00:00:00 Completed [facility] Influenza Virus Vaccine Quad .5 mL IM 6+ MO 2020-01-21 00:00:00 Completed [facility] Influenza Virus Vaccine Quad .5 mL IM 6+ MO 2020-01-21 00:00:00 Completed [facility] Influenza Virus Vaccine Quad .5 mL IM 6+ MO 2020-01-21 00:00:00 Completed [facility] Influenza Virus Vaccine Quad .5 mL IM 6+ MO 2020-01-21 00:00:00 Completed [facility] Influenza Virus Vaccine Quad .5 mL IM 6+ MO 2020-01-21 00:00:00 Completed [facility] Influenza Virus Vaccine Quad .5 mL IM 6+ MO 2020-01-21 00:00:00 Completed [facility] Influenza Virus Vaccine Quad .5 mL IM 6+ MO 2020-01-21 00:00:00 Completed [facility] Influenza Virus Vaccine Quad .5 mL IM 6+ MO 2020-01-21 00:00:00 Completed [facility] Influenza Virus Vaccine Quad .5 mL IM 6+ MO 2020-01-21 00:00:00 Completed [facility] Influenza Virus Vaccine Quad .5 mL IM 6+ MO 2020-01-21 00:00:00 Completed [facility] Influenza Virus Vaccine Quad .5 mL IM 6+ MO 2020-01-21 00:00:00 Completed [facility] Influenza Virus Vaccine Quad .5 mL IM 6+ MO 2020-01-21 00:00:00 Completed [facility] Influenza Virus Vaccine Quad .5 mL IM 6+ MO 2020-01-21 00:00:00 Completed [facility] Influenza Virus Vaccine Quad .5 mL IM 6+ MO 2020-01-21 00:00:00 Completed [facility] Influenza Virus Vaccine Quad .5 mL IM 6+ MO 2020-01-21 00:00:00 Completed [facility] Influenza Virus Vaccine Quad .5 mL IM 6+ MO 2020-01-21 00:00:00 Completed [facility] Influenza Virus Vaccine Quad .5 mL IM 6+ MO 2020-01-21 00:00:00 Completed [facility] Influenza Virus Vaccine Quad .5 mL IM 6+ MO 2020-01-21 00:00:00 Completed [facility] Influenza Virus Vaccine Quad .5 mL IM 6+ MO 2020-01-21 00:00:00 Completed [facility] Influenza Virus Vaccine Quad .5 mL IM 6+ MO 2020-01-21 00:00:00 Completed [facility] Influenza Virus Vaccine Quad .5 mL IM 6+ MO 2020-01-21 00:00:00 Completed [facility] Influenza Virus Vaccine Quad .5 mL IM 6+ MO 2020-01-21 00:00:00 Completed [facility] Influenza Virus Vaccine Quad .5 mL IM 6+ MO (FLUZONE/FLULAVAL/FL UARIX) 2020-01-21 00:00:00 Completed [facility] Meningococcal Vaccine 2018-10-18 00:00:00 Completed [facility] TDAP 2018-10-18 00:00:00 Completed [facility] Meningococcal B, OMV 2018-10-18 00:00:00 Completed [facility] Meningococcal Vaccine 2018-10-18 00:00:00 Completed [facility] TDAP 2018-10-18 00:00:00 Completed [facility] Meningococcal B, OMV 2018-10-18 00:00:00 Completed [facility] Meningococcal Vaccine 2018-10-18 00:00:00 Completed [facility] TDAP 2018-10-18 00:00:00 Completed [facility] Meningococcal B, OMV 2018-10-18 00:00:00 Completed [facility] Meningococcal Vaccine 2018-10-18 00:00:00 Completed [facility] TDAP 2018-10-18 00:00:00 Completed [facility] Meningococcal B, OMV 2018-10-18 00:00:00 Completed [facility] Meningococcal Vaccine 2018-10-18 00:00:00 Completed [facility] TDAP 2018-10-18 00:00:00 Completed [facility] Meningococcal B, OMV 2018-10-18 00:00:00 Completed [facility] Meningococcal Vaccine 2018-10-18 00:00:00 Completed [facility] TDAP 2018-10-18 00:00:00 Completed [facility] Meningococcal B, OMV 2018-10-18 00:00:00 Completed [facility] Meningococcal Vaccine 2018-10-18 00:00:00 Completed [facility] TDAP 2018-10-18 00:00:00 Completed [facility] Meningococcal B, OMV 2018-10-18 00:00:00 Completed [facility] Meningococcal Vaccine 2018-10-18 00:00:00 Completed [facility] TDAP 2018-10-18 00:00:00 Completed [facility] Meningococcal B, OMV 2018-10-18 00:00:00 Completed [facility] Meningococcal Vaccine 2018-10-18 00:00:00 Completed [facility] TDAP 2018-10-18 00:00:00 Completed [facility] Meningococcal B, OMV 2018-10-18 00:00:00 Completed [facility] Meningococcal Vaccine 2018-10-18 00:00:00 Completed [facility] TDAP 2018-10-18 00:00:00 Completed [facility] Meningococcal B, OMV 2018-10-18 00:00:00 Completed [facility] Meningococcal Vaccine 2018-10-18 00:00:00 Completed [facility] TDAP 2018-10-18 00:00:00 Completed [facility] Meningococcal B, OMV 2018-10-18 00:00:00 Completed [facility] Meningococcal Vaccine 2018-10-18 00:00:00 Completed [facility] TDAP 2018-10-18 00:00:00 Completed [facility] Meningococcal B, OMV 2018-10-18 00:00:00 Completed [facility] Meningococcal Vaccine 2018-10-18 00:00:00 Completed [facility] TDAP 2018-10-18 00:00:00 Completed [facility] Meningococcal B, OMV 2018-10-18 00:00:00 Completed [facility] Meningococcal Vaccine 2018-10-18 00:00:00 Completed [facility] TDAP 2018-10-18 00:00:00 Completed [facility] Meningococcal B, OMV 2018-10-18 00:00:00 Completed [facility] Meningococcal Vaccine 2018-10-18 00:00:00 Completed [facility] TDAP 2018-10-18 00:00:00 Completed [facility] Meningococcal B, OMV 2018-10-18 00:00:00 Completed [facility] Meningococcal Vaccine 2018-10-18 00:00:00 Completed [facility] TDAP 2018-10-18 00:00:00 Completed [facility] Meningococcal B, OMV 2018-10-18 00:00:00 Completed [facility] Meningococcal Vaccine 2018-10-18 00:00:00 Completed [facility] TDAP 2018-10-18 00:00:00 Completed [facility] Meningococcal B, OMV 2018-10-18 00:00:00 Completed [facility] Meningococcal Vaccine 2018-10-18 00:00:00 Completed [facility] TDAP 2018-10-18 00:00:00 Completed [facility] Meningococcal B, OMV 2018-10-18 00:00:00 Completed [facility] Meningococcal Vaccine 2018-10-18 00:00:00 Completed [facility] TDAP 2018-10-18 00:00:00 Completed [facility] Meningococcal B, OMV 2018-10-18 00:00:00 Completed [facility] Meningococcal Vaccine 2018-10-18 00:00:00 Completed [facility] TDAP 2018-10-18 00:00:00 Completed [facility] Meningococcal B, OMV 2018-10-18 00:00:00 Completed [facility] Meningococcal Vaccine 2018-10-18 00:00:00 Completed [facility] TDAP 2018-10-18 00:00:00 Completed [facility] Meningococcal B, OMV 2018-10-18 00:00:00 Completed [facility] Meningococcal Vaccine 2018-10-18 00:00:00 Completed [facility] TDAP 2018-10-18 00:00:00 Completed [facility] Meningococcal B, OMV 2018-10-18 00:00:00 Completed [facility] Meningococcal Vaccine 2018-10-18 00:00:00 Completed [facility] TDAP 2018-10-18 00:00:00 Completed [facility] Meningococcal B, OMV 2018-10-18 00:00:00 Completed [facility] Meningococcal Vaccine 2018-10-18 00:00:00 Completed [facility] TDAP 2018-10-18 00:00:00 Completed [facility] Meningococcal B, OMV 2018-10-18 00:00:00 Completed [facility] Meningococcal Vaccine 2018-10-18 00:00:00 Completed [facility] TDAP 2018-10-18 00:00:00 Completed [facility] Meningococcal B, OMV 2018-10-18 00:00:00 Completed [facility] Meningococcal Vaccine 2018-10-18 00:00:00 Completed [facility] TDAP 2018-10-18 00:00:00 Completed [facility] Meningococcal B, OMV 2018-10-18 00:00:00 Completed [facility] Meningococcal Vaccine 2018-10-18 00:00:00 Completed [facility] TDAP 2018-10-18 00:00:00 Completed [facility] Meningococcal B, OMV 2018-10-18 00:00:00 Completed [facility] Meningococcal Vaccine 2018-10-18 00:00:00 Completed [facility] TDAP 2018-10-18 00:00:00 Completed [facility] Meningococcal B, OMV 2018-10-18 00:00:00 Completed [facility] Meningococcal Vaccine 2018-10-18 00:00:00 Completed [facility] TDAP 2018-10-18 00:00:00 Completed [facility] Meningococcal B, OMV 2018-10-18 00:00:00 Completed [facility] Meningococcal Vaccine 2018-10-18 00:00:00 Completed [facility] TDAP 2018-10-18 00:00:00 Completed [facility] Meningococcal B, OMV 2018-10-18 00:00:00 Completed [facility] Meningococcal Polysaccharide (groups A, C, Y and W-135) conjugate vaccine (MCV4P) 2018-10-18 00:00:00 Completed [facility] Meningococcal Vaccine 2018-10-18 00:00:00 Completed [facility] TDAP 2018-10-18 00:00:00 Completed [facility] Meningococcal B, OMV 2018-10-18 00:00:00 Completed [facility] Meningococcal Polysaccharide (groups A, C, Y and W-135) conjugate vaccine (MCV4P) 2018-10-18 00:00:00 Completed [facility] Meningococcal Vaccine 2018-10-18 00:00:00 Completed [facility] TDAP 2018-10-18 00:00:00 Completed [facility] Meningococcal B, OMV 2018-10-18 00:00:00 Completed [facility] Meningococcal Polysaccharide (groups A, C, Y and W-135) conjugate vaccine (MCV4P) 2018-10-18 00:00:00 Completed [facility] Meningococcal Vaccine 2018-10-18 00:00:00 Completed [facility] TDAP 2018-10-18 00:00:00 Completed [facility] Meningococcal B, OMV 2018-10-18 00:00:00 Completed [facility] Meningococcal Polysaccharide (groups A, C, Y and W-135) conjugate vaccine (MCV4P) 2018-10-18 00:00:00 Completed [facility] Meningococcal Vaccine 2018-10-18 00:00:00 Completed [facility] TDAP 2018-10-18 00:00:00 Completed [facility] Meningococcal B, OMV 2018-10-18 00:00:00 Completed [facility] Meningococcal Polysaccharide (groups A, C, Y and W-135) conjugate vaccine (MCV4P) 2018-10-18 00:00:00 Completed [facility] Meningococcal Vaccine 2018-10-18 00:00:00 Completed [facility] TDAP 2018-10-18 00:00:00 Completed [facility] Meningococcal B, OMV 2018-10-18 00:00:00 Completed [facility] Meningococcal Polysaccharide (groups A, C, Y and W-135) conjugate vaccine (MCV4P) 2018-10-18 00:00:00 Completed [facility] Meningococcal Vaccine 2018-10-18 00:00:00 Completed [facility] TDAP 2018-10-18 00:00:00 Completed [facility] Meningococcal B, OMV 2018-10-18 00:00:00 Completed [facility] Meningococcal Polysaccharide (groups A, C, Y and W-135) conjugate vaccine (MCV4P) 2018-10-18 00:00:00 Completed [facility] Meningococcal Vaccine 2018-10-18 00:00:00 Completed [facility] TDAP 2018-10-18 00:00:00 Completed [facility] Meningococcal B, OMV 2018-10-18 00:00:00 Completed [facility] Meningococcal Polysaccharide (groups A, C, Y and W-135) conjugate vaccine (MCV4P) 2018-10-18 00:00:00 Completed [facility] Meningococcal Vaccine 2018-10-18 00:00:00 Completed [facility] TDAP 2018-10-18 00:00:00 Completed [facility] Meningococcal B, OMV 2018-10-18 00:00:00 Completed [facility] Meningococcal Polysaccharide (groups A, C, Y and W-135) conjugate vaccine (MCV4P) 2018-10-18 00:00:00 Completed [facility] Meningococcal Vaccine 2018-10-18 00:00:00 Completed [facility] TDAP 2018-10-18 00:00:00 Completed [facility] Meningococcal B, OMV 2018-10-18 00:00:00 Completed [facility] Meningococcal Polysaccharide (groups A, C, Y and W-135) conjugate vaccine (MCV4P) 2018-10-18 00:00:00 Completed [facility] Meningococcal Vaccine 2018-10-18 00:00:00 Completed [facility] TDAP 2018-10-18 00:00:00 Completed [facility] Meningococcal B, OMV 2018-10-18 00:00:00 Completed [facility] Meningococcal Polysaccharide (groups A, C, Y and W-135) conjugate vaccine (MCV4P) 2018-10-18 00:00:00 Completed [facility] Meningococcal Vaccine 2018-10-18 00:00:00 Completed [facility] TDAP 2018-10-18 00:00:00 Completed [facility] Meningococcal B, OMV 2018-10-18 00:00:00 Completed [facility] Meningococcal Polysaccharide (groups A, C, Y and W-135) conjugate vaccine (MCV4P) 2018-10-18 00:00:00 Completed [facility] Meningococcal Vaccine 2018-10-18 00:00:00 Completed [facility] TDAP 2018-10-18 00:00:00 Completed [facility] Meningococcal B, OMV 2018-10-18 00:00:00 Completed [facility] Meningococcal Polysaccharide (groups A, C, Y and W-135) conjugate vaccine (MCV4P) 2018-10-18 00:00:00 Completed [facility] Meningococcal Vaccine 2018-10-18 00:00:00 Completed [facility] TDAP 2018-10-18 00:00:00 Completed [facility] Meningococcal B, OMV 2018-10-18 00:00:00 Completed [facility] Meningococcal Polysaccharide (groups A, C, Y and W-135) conjugate vaccine (MCV4P) 2018-10-18 00:00:00 Completed [facility] Meningococcal Vaccine 2018-10-18 00:00:00 Completed [facility] TDAP 2018-10-18 00:00:00 Completed [facility] Meningococcal B, OMV 2018-10-18 00:00:00 Completed [facility] Meningococcal Polysaccharide (groups A, C, Y and W-135) conjugate vaccine (MCV4P) 2018-10-18 00:00:00 Completed [facility] Meningococcal Vaccine 2018-10-18 00:00:00 Completed [facility] TDAP 2018-10-18 00:00:00 Completed [facility] Meningococcal B, OMV 2018-10-18 00:00:00 Completed [facility] Meningococcal Polysaccharide (groups A, C, Y and W-135) conjugate vaccine (MCV4P) 2018-10-18 00:00:00 Completed [facility] Meningococcal Vaccine 2018-10-18 00:00:00 Completed [facility] TDAP 2018-10-18 00:00:00 Completed [facility] Meningococcal B, OMV 2018-10-18 00:00:00 Completed [facility] Meningococcal Polysaccharide (groups A, C, Y and W-135) conjugate vaccine (MCV4P) 2018-10-18 00:00:00 Completed [facility] Meningococcal Vaccine 2018-10-18 00:00:00 Completed [facility] TDAP 2018-10-18 00:00:00 Completed [facility] Meningococcal B, OMV 2018-10-18 00:00:00 Completed [facility] Meningococcal Polysaccharide (groups A, C, Y and W-135) conjugate vaccine (MCV4P) 2018-10-18 00:00:00 Completed [facility] Meningococcal Vaccine 2018-10-18 00:00:00 Completed [facility] TDAP 2018-10-18 00:00:00 Completed [facility] Meningococcal B, OMV 2018-10-18 00:00:00 Completed [facility] Meningococcal Polysaccharide (groups A, C, Y and W-135) conjugate vaccine (MCV4P) 2018-10-18 00:00:00 Completed [facility] Meningococcal Vaccine 2018-10-18 00:00:00 Completed [facility] TDAP 2018-10-18 00:00:00 Completed [facility] Meningococcal B, OMV 2018-10-18 00:00:00 Completed [facility] Meningococcal Polysaccharide (groups A, C, Y and W-135) conjugate vaccine (MCV4P) 2018-10-18 00:00:00 Completed [facility] Meningococcal Vaccine 2018-10-18 00:00:00 Completed [facility] TDAP 2018-10-18 00:00:00 Completed [facility] Meningococcal B, OMV 2018-10-18 00:00:00 Completed [facility] Meningococcal Polysaccharide (groups A, C, Y and W-135) conjugate vaccine (MCV4P) 2018-10-18 00:00:00 Completed [facility] Meningococcal Vaccine 2018-10-18 00:00:00 Completed [facility] TDAP 2018-10-18 00:00:00 Completed [facility] Meningococcal B, OMV 2018-10-18 00:00:00 Completed [facility] Meningococcal Polysaccharide (groups A, C, Y and W-135) conjugate vaccine (MCV4P) 2018-10-18 00:00:00 Completed [facility] Meningococcal Vaccine 2018-10-18 00:00:00 Completed TDAP 2018-10-18 00:00:00 Completed Meningococcal B, OMV 2018-10-18 00:00:00 Completed Meningococcal Polysaccharide (groups A, C, Y and W-135) conjugate vaccine (MCV4P) 2018-10-18 00:00:00 Completed DTAP 2006-10-25 00:00:00 Completed [facility] Hepatitis A Adult 2006-10-25 00:00:00 Completed [facility] Polio (IPV/OPV) 2006-10-25 00:00:00 Completed [facility] DTAP 2006-10-25 00:00:00 Completed [facility] Hepatitis A Adult 2006-10-25 00:00:00 Completed [facility] Polio (IPV/OPV) 2006-10-25 00:00:00 Completed [facility] DTAP 2006-10-25 00:00:00 Completed [facility] Hepatitis A Adult 2006-10-25 00:00:00 Completed [facility] Polio (IPV/OPV) 2006-10-25 00:00:00 Completed [facility] DTAP 2006-10-25 00:00:00 Completed [facility] Hepatitis A Adult 2006-10-25 00:00:00 Completed [facility] Polio (IPV/OPV) 2006-10-25 00:00:00 Completed [facility] DTAP 2006-10-25 00:00:00 Completed [facility] Hepatitis A Adult 2006-10-25 00:00:00 Completed [facility] Polio (IPV/OPV) 2006-10-25 00:00:00 Completed [facility] DTAP 2006-10-25 00:00:00 Completed [facility] Hepatitis A Adult 2006-10-25 00:00:00 Completed [facility] Polio (IPV/OPV) 2006-10-25 00:00:00 Completed [facility] DTAP 2006-10-25 00:00:00 Completed [facility] Hepatitis A Adult 2006-10-25 00:00:00 Completed [facility] Polio (IPV/OPV) 2006-10-25 00:00:00 Completed [facility] DTAP 2006-10-25 00:00:00 Completed [facility] Hepatitis A Adult 2006-10-25 00:00:00 Completed [facility] Polio (IPV/OPV) 2006-10-25 00:00:00 Completed [facility] DTAP 2006-10-25 00:00:00 Completed [facility] Hepatitis A Adult 2006-10-25 00:00:00 Completed [facility] Polio (IPV/OPV) 2006-10-25 00:00:00 Completed [facility] DTAP 2006-10-25 00:00:00 Completed [facility] Hepatitis A Adult 2006-10-25 00:00:00 Completed [facility] Polio (IPV/OPV) 2006-10-25 00:00:00 Completed [facility] DTAP 2006-10-25 00:00:00 Completed [facility] Hepatitis A Adult 2006-10-25 00:00:00 Completed [facility] Polio (IPV/OPV) 2006-10-25 00:00:00 Completed [facility] DTAP 2006-10-25 00:00:00 Completed [facility] Hepatitis A Adult 2006-10-25 00:00:00 Completed [facility] Polio (IPV/OPV) 2006-10-25 00:00:00 Completed [facility] DTAP 2006-10-25 00:00:00 Completed [facility] Hepatitis A Adult 2006-10-25 00:00:00 Completed [facility] Polio (IPV/OPV) 2006-10-25 00:00:00 Completed [facility] DTAP 2006-10-25 00:00:00 Completed [facility] Hepatitis A Adult 2006-10-25 00:00:00 Completed [facility] Polio (IPV/OPV) 2006-10-25 00:00:00 Completed [facility] DTAP 2006-10-25 00:00:00 Completed [facility] Hepatitis A Adult 2006-10-25 00:00:00 Completed [facility] Polio (IPV/OPV) 2006-10-25 00:00:00 Completed [facility] DTAP 2006-10-25 00:00:00 Completed [facility] Hepatitis A Adult 2006-10-25 00:00:00 Completed [facility] Polio (IPV/OPV) 2006-10-25 00:00:00 Completed [facility] DTAP 2006-10-25 00:00:00 Completed [facility] Hepatitis A Adult 2006-10-25 00:00:00 Completed [facility] Polio (IPV/OPV) 2006-10-25 00:00:00 Completed [facility] DTAP 2006-10-25 00:00:00 Completed [facility] Hepatitis A Adult 2006-10-25 00:00:00 Completed [facility] Polio (IPV/OPV) 2006-10-25 00:00:00 Completed [facility] DTAP 2006-10-25 00:00:00 Completed [facility] Hepatitis A Adult 2006-10-25 00:00:00 Completed [facility] Polio (IPV/OPV) 2006-10-25 00:00:00 Completed [facility] DTAP 2006-10-25 00:00:00 Completed [facility] Hepatitis A Adult 2006-10-25 00:00:00 Completed [facility] Polio (IPV/OPV) 2006-10-25 00:00:00 Completed [facility] DTAP 2006-10-25 00:00:00 Completed [facility] Hepatitis A Adult 2006-10-25 00:00:00 Completed [facility] Polio (IPV/OPV) 2006-10-25 00:00:00 Completed [facility] DTAP 2006-10-25 00:00:00 Completed [facility] Hepatitis A Adult 2006-10-25 00:00:00 Completed [facility] Polio (IPV/OPV) 2006-10-25 00:00:00 Completed [facility] DTAP 2006-10-25 00:00:00 Completed [facility] Hepatitis A Adult 2006-10-25 00:00:00 Completed [facility] Polio (IPV/OPV) 2006-10-25 00:00:00 Completed [facility] DTAP 2006-10-25 00:00:00 Completed [facility] Hepatitis A Adult 2006-10-25 00:00:00 Completed [facility] Polio (IPV/OPV) 2006-10-25 00:00:00 Completed [facility] DTAP 2006-10-25 00:00:00 Completed [facility] Hepatitis A Adult 2006-10-25 00:00:00 Completed [facility] Polio (IPV/OPV) 2006-10-25 00:00:00 Completed [facility] DTAP 2006-10-25 00:00:00 Completed [facility] Hepatitis A Adult 2006-10-25 00:00:00 Completed [facility] Polio (IPV/OPV) 2006-10-25 00:00:00 Completed [facility] DTAP 2006-10-25 00:00:00 Completed [facility] Hepatitis A Adult 2006-10-25 00:00:00 Completed [facility] Polio (IPV/OPV) 2006-10-25 00:00:00 Completed [facility] DTAP 2006-10-25 00:00:00 Completed [facility] Hepatitis A Adult 2006-10-25 00:00:00 Completed [facility] Polio (IPV/OPV) 2006-10-25 00:00:00 Completed [facility] DTAP 2006-10-25 00:00:00 Completed [facility] Hepatitis A Adult 2006-10-25 00:00:00 Completed [facility] Polio (IPV/OPV) 2006-10-25 00:00:00 Completed [facility] DTAP 2006-10-25 00:00:00 Completed [facility] Hepatitis A Adult 2006-10-25 00:00:00 Completed [facility] Polio (IPV/OPV) 2006-10-25 00:00:00 Completed [facility] DTaP, Unspecified Formulation 2006-10-25 00:00:00 Completed [facility] HEPA,NOS 2006-10-25 00:00:00 Completed [facility] IPV 2006-10-25 00:00:00 Completed [facility] DTAP 2006-10-25 00:00:00 Completed [facility] Hepatitis A Adult 2006-10-25 00:00:00 Completed [facility] Polio (IPV/OPV) 2006-10-25 00:00:00 Completed [facility] DTaP, Unspecified Formulation 2006-10-25 00:00:00 Completed [facility] HEPA,NOS 2006-10-25 00:00:00 Completed [facility] IPV 2006-10-25 00:00:00 Completed [facility] DTAP 2006-10-25 00:00:00 Completed [facility] Hepatitis A Adult 2006-10-25 00:00:00 Completed [facility] Polio (IPV/OPV) 2006-10-25 00:00:00 Completed [facility] DTaP, Unspecified Formulation 2006-10-25 00:00:00 Completed [facility] HEPA,NOS 2006-10-25 00:00:00 Completed [facility] IPV 2006-10-25 00:00:00 Completed [facility] DTAP 2006-10-25 00:00:00 Completed [facility] Hepatitis A Adult 2006-10-25 00:00:00 Completed [facility] Polio (IPV/OPV) 2006-10-25 00:00:00 Completed [facility] DTaP, Unspecified Formulation 2006-10-25 00:00:00 Completed [facility] HEPA,NOS 2006-10-25 00:00:00 Completed [facility] IPV 2006-10-25 00:00:00 Completed [facility] DTAP 2006-10-25 00:00:00 Completed [facility] Hepatitis A Adult 2006-10-25 00:00:00 Completed [facility] Polio (IPV/OPV) 2006-10-25 00:00:00 Completed [facility] DTaP, Unspecified Formulation 2006-10-25 00:00:00 Completed [facility] HEPA,NOS 2006-10-25 00:00:00 Completed [facility] IPV 2006-10-25 00:00:00 Completed [facility] DTAP 2006-10-25 00:00:00 Completed [facility] Hepatitis A Adult 2006-10-25 00:00:00 Completed [facility] Polio (IPV/OPV) 2006-10-25 00:00:00 Completed [facility] DTaP, Unspecified Formulation 2006-10-25 00:00:00 Completed [facility] HEPA,NOS 2006-10-25 00:00:00 Completed [facility] IPV 2006-10-25 00:00:00 Completed [facility] DTAP 2006-10-25 00:00:00 Completed [facility] Hepatitis A Adult 2006-10-25 00:00:00 Completed [facility] Polio (IPV/OPV) 2006-10-25 00:00:00 Completed [facility] DTaP, Unspecified Formulation 2006-10-25 00:00:00 Completed [facility] HEPA,NOS 2006-10-25 00:00:00 Completed [facility] IPV 2006-10-25 00:00:00 Completed [facility] DTAP 2006-10-25 00:00:00 Completed [facility] Hepatitis A Adult 2006-10-25 00:00:00 Completed [facility] Polio (IPV/OPV) 2006-10-25 00:00:00 Completed [facility] DTaP, Unspecified Formulation 2006-10-25 00:00:00 Completed [facility] HEPA,NOS 2006-10-25 00:00:00 Completed [facility] IPV 2006-10-25 00:00:00 Completed [facility] DTAP 2006-10-25 00:00:00 Completed [facility] Hepatitis A Adult 2006-10-25 00:00:00 Completed [facility] Polio (IPV/OPV) 2006-10-25 00:00:00 Completed [facility] DTaP, Unspecified Formulation 2006-10-25 00:00:00 Completed [facility] HEPA,NOS 2006-10-25 00:00:00 Completed [facility] IPV 2006-10-25 00:00:00 Completed [facility] DTAP 2006-10-25 00:00:00 Completed [facility] Hepatitis A Adult 2006-10-25 00:00:00 Completed [facility] Polio (IPV/OPV) 2006-10-25 00:00:00 Completed [facility] DTaP, Unspecified Formulation 2006-10-25 00:00:00 Completed [facility] HEPA,NOS 2006-10-25 00:00:00 Completed [facility] IPV 2006-10-25 00:00:00 Completed [facility] DTAP 2006-10-25 00:00:00 Completed [facility] Hepatitis A Adult 2006-10-25 00:00:00 Completed [facility] Polio (IPV/OPV) 2006-10-25 00:00:00 Completed [facility] DTaP, Unspecified Formulation 2006-10-25 00:00:00 Completed [facility] HEPA,NOS 2006-10-25 00:00:00 Completed [facility] IPV 2006-10-25 00:00:00 Completed [facility] DTAP 2006-10-25 00:00:00 Completed [facility] Hepatitis A Adult 2006-10-25 00:00:00 Completed [facility] Polio (IPV/OPV) 2006-10-25 00:00:00 Completed [facility] DTaP, Unspecified Formulation 2006-10-25 00:00:00 Completed [facility] HEPA,NOS 2006-10-25 00:00:00 Completed [facility] IPV 2006-10-25 00:00:00 Completed [facility] DTAP 2006-10-25 00:00:00 Completed [facility] Hepatitis A Adult 2006-10-25 00:00:00 Completed [facility] Polio (IPV/OPV) 2006-10-25 00:00:00 Completed [facility] DTaP, Unspecified Formulation 2006-10-25 00:00:00 Completed [facility] HEPA,NOS 2006-10-25 00:00:00 Completed [facility] IPV 2006-10-25 00:00:00 Completed [facility] DTAP 2006-10-25 00:00:00 Completed [facility] Hepatitis A Adult 2006-10-25 00:00:00 Completed [facility] Polio (IPV/OPV) 2006-10-25 00:00:00 Completed [facility] DTaP, Unspecified Formulation 2006-10-25 00:00:00 Completed [facility] HEPA,NOS 2006-10-25 00:00:00 Completed [facility] IPV 2006-10-25 00:00:00 Completed [facility] DTAP 2006-10-25 00:00:00 Completed [facility] Hepatitis A Adult 2006-10-25 00:00:00 Completed [facility] Polio (IPV/OPV) 2006-10-25 00:00:00 Completed [facility] DTaP, Unspecified Formulation 2006-10-25 00:00:00 Completed [facility] HEPA,NOS 2006-10-25 00:00:00 Completed [facility] IPV 2006-10-25 00:00:00 Completed [facility] DTAP 2006-10-25 00:00:00 Completed [facility] Hepatitis A Adult 2006-10-25 00:00:00 Completed [facility] Polio (IPV/OPV) 2006-10-25 00:00:00 Completed [facility] DTaP, Unspecified Formulation 2006-10-25 00:00:00 Completed [facility] HEPA,NOS 2006-10-25 00:00:00 Completed [facility] IPV 2006-10-25 00:00:00 Completed [facility] DTAP 2006-10-25 00:00:00 Completed [facility] Hepatitis A Adult 2006-10-25 00:00:00 Completed [facility] Polio (IPV/OPV) 2006-10-25 00:00:00 Completed [facility] DTaP, Unspecified Formulation 2006-10-25 00:00:00 Completed [facility] HEPA,NOS 2006-10-25 00:00:00 Completed [facility] IPV 2006-10-25 00:00:00 Completed [facility] DTAP 2006-10-25 00:00:00 Completed [facility] Hepatitis A Adult 2006-10-25 00:00:00 Completed [facility] Polio (IPV/OPV) 2006-10-25 00:00:00 Completed [facility] DTaP, Unspecified Formulation 2006-10-25 00:00:00 Completed [facility] HEPA,NOS 2006-10-25 00:00:00 Completed [facility] IPV 2006-10-25 00:00:00 Completed [facility] DTAP 2006-10-25 00:00:00 Completed [facility] Hepatitis A Adult 2006-10-25 00:00:00 Completed [facility] Polio (IPV/OPV) 2006-10-25 00:00:00 Completed [facility] DTaP, Unspecified Formulation 2006-10-25 00:00:00 Completed [facility] HEPA,NOS 2006-10-25 00:00:00 Completed [facility] IPV 2006-10-25 00:00:00 Completed [facility] DTAP 2006-10-25 00:00:00 Completed [facility] Hepatitis A Adult 2006-10-25 00:00:00 Completed [facility] Polio (IPV/OPV) 2006-10-25 00:00:00 Completed [facility] DTaP, Unspecified Formulation 2006-10-25 00:00:00 Completed [facility] HEPA,NOS 2006-10-25 00:00:00 Completed [facility] IPV 2006-10-25 00:00:00 Completed [facility] DTAP 2006-10-25 00:00:00 Completed [facility] Hepatitis A Adult 2006-10-25 00:00:00 Completed [facility] Polio (IPV/OPV) 2006-10-25 00:00:00 Completed [facility] DTaP, Unspecified Formulation 2006-10-25 00:00:00 Completed [facility] HEPA,NOS 2006-10-25 00:00:00 Completed [facility] IPV 2006-10-25 00:00:00 Completed [facility] DTAP 2006-10-25 00:00:00 Completed [facility] Hepatitis A Adult 2006-10-25 00:00:00 Completed [facility] Polio (IPV/OPV) 2006-10-25 00:00:00 Completed [facility] DTaP, Unspecified Formulation 2006-10-25 00:00:00 Completed [facility] HEPA,NOS 2006-10-25 00:00:00 Completed [facility] IPV 2006-10-25 00:00:00 Completed [facility] DTAP 2006-10-25 00:00:00 Completed Hepatitis A Adult 2006-10-25 00:00:00 Completed Polio (IPV/OPV) 2006-10-25 00:00:00 Completed DTaP, Unspecified Formulation 2006-10-25 00:00:00 Completed HEPA,NOS 2006-10-25 00:00:00 Completed IPV 2006-10-25 00:00:00 Completed DTAP 2005-09-20 00:00:00 Completed [facility] HIB 3 Dose Schedule 2005-09-20 00:00:00 Completed [facility] Hepatitis A Adult 2005-09-20 00:00:00 Completed [facility] Hep B, Adol or Pedi Dosage 2005-09-20 00:00:00 Completed [facility] Pneumococcal 13 Conjugate, PCV13 (Prevnar 13) 2005-09-20 00:00:00 Completed [facility] Polio (IPV/OPV) 2005-09-20 00:00:00 Completed [facility] DTAP 2005-09-20 00:00:00 Completed [facility] HIB 3 Dose Schedule 2005-09-20 00:00:00 Completed [facility] Hepatitis A Adult 2005-09-20 00:00:00 Completed [facility] Hep B, Adol or Pedi Dosage 2005-09-20 00:00:00 Completed [facility] Pneumococcal 13 Conjugate, PCV13 (Prevnar 13) 2005-09-20 00:00:00 Completed [facility] Polio (IPV/OPV) 2005-09-20 00:00:00 Completed [facility] DTAP 2005-09-20 00:00:00 Completed [facility] HIB 3 Dose Schedule 2005-09-20 00:00:00 Completed [facility] Hepatitis A Adult 2005-09-20 00:00:00 Completed [facility] Hep B, Adol or Pedi Dosage 2005-09-20 00:00:00 Completed [facility] Pneumococcal 13 Conjugate, PCV13 (Prevnar 13) 2005-09-20 00:00:00 Completed [facility] Polio (IPV/OPV) 2005-09-20 00:00:00 Completed [facility] DTAP 2005-09-20 00:00:00 Completed [facility] HIB 3 Dose Schedule 2005-09-20 00:00:00 Completed [facility] Hepatitis A Adult 2005-09-20 00:00:00 Completed [facility] Hep B, Adol or Pedi Dosage 2005-09-20 00:00:00 Completed [facility] Pneumococcal 13 Conjugate, PCV13 (Prevnar 13) 2005-09-20 00:00:00 Completed [facility] Polio (IPV/OPV) 2005-09-20 00:00:00 Completed [facility] DTAP 2005-09-20 00:00:00 Completed [facility] HIB 3 Dose Schedule 2005-09-20 00:00:00 Completed [facility] Hepatitis A Adult 2005-09-20 00:00:00 Completed [facility] Hep B, Adol or Pedi Dosage 2005-09-20 00:00:00 Completed [facility] Pneumococcal 13 Conjugate, PCV13 (Prevnar 13) 2005-09-20 00:00:00 Completed [facility] Polio (IPV/OPV) 2005-09-20 00:00:00 Completed [facility] DTAP 2005-09-20 00:00:00 Completed [facility] HIB 3 Dose Schedule 2005-09-20 00:00:00 Completed [facility] Hepatitis A Adult 2005-09-20 00:00:00 Completed [facility] Hep B, Adol or Pedi Dosage 2005-09-20 00:00:00 Completed [facility] Pneumococcal 13 Conjugate, PCV13 (Prevnar 13) 2005-09-20 00:00:00 Completed [facility] Polio (IPV/OPV) 2005-09-20 00:00:00 Completed [facility] DTAP 2005-09-20 00:00:00 Completed [facility] HIB 3 Dose Schedule 2005-09-20 00:00:00 Completed [facility] Hepatitis A Adult 2005-09-20 00:00:00 Completed [facility] Hep B, Adol or Pedi Dosage 2005-09-20 00:00:00 Completed [facility] Pneumococcal 13 Conjugate, PCV13 (Prevnar 13) 2005-09-20 00:00:00 Completed [facility] Polio (IPV/OPV) 2005-09-20 00:00:00 Completed [facility] DTAP 2005-09-20 00:00:00 Completed [facility] HIB 3 Dose Schedule 2005-09-20 00:00:00 Completed [facility] Hepatitis A Adult 2005-09-20 00:00:00 Completed [facility] Hep B, Adol or Pedi Dosage 2005-09-20 00:00:00 Completed [facility] Pneumococcal 13 Conjugate, PCV13 (Prevnar 13) 2005-09-20 00:00:00 Completed [facility] Polio (IPV/OPV) 2005-09-20 00:00:00 Completed [facility] DTAP 2005-09-20 00:00:00 Completed [facility] HIB 3 Dose Schedule 2005-09-20 00:00:00 Completed [facility] Hepatitis A Adult 2005-09-20 00:00:00 Completed [facility] Hep B, Adol or Pedi Dosage 2005-09-20 00:00:00 Completed [facility] Pneumococcal 13 Conjugate, PCV13 (Prevnar 13) 2005-09-20 00:00:00 Completed [facility] Polio (IPV/OPV) 2005-09-20 00:00:00 Completed [facility] DTAP 2005-09-20 00:00:00 Completed [facility] HIB 3 Dose Schedule 2005-09-20 00:00:00 Completed [facility] Hepatitis A Adult 2005-09-20 00:00:00 Completed [facility] Hep B, Adol or Pedi Dosage 2005-09-20 00:00:00 Completed [facility] Pneumococcal 13 Conjugate, PCV13 (Prevnar 13) 2005-09-20 00:00:00 Completed [facility] Polio (IPV/OPV) 2005-09-20 00:00:00 Completed [facility] DTAP 2005-09-20 00:00:00 Completed [facility] HIB 3 Dose Schedule 2005-09-20 00:00:00 Completed [facility] Hepatitis A Adult 2005-09-20 00:00:00 Completed [facility] Hep B, Adol or Pedi Dosage 2005-09-20 00:00:00 Completed [facility] Pneumococcal 13 Conjugate, PCV13 (Prevnar 13) 2005-09-20 00:00:00 Completed [facility] Polio (IPV/OPV) 2005-09-20 00:00:00 Completed [facility] DTAP 2005-09-20 00:00:00 Completed [facility] HIB 3 Dose Schedule 2005-09-20 00:00:00 Completed [facility] Hepatitis A Adult 2005-09-20 00:00:00 Completed [facility] Hep B, Adol or Pedi Dosage 2005-09-20 00:00:00 Completed [facility] Pneumococcal 13 Conjugate, PCV13 (Prevnar 13) 2005-09-20 00:00:00 Completed [facility] Polio (IPV/OPV) 2005-09-20 00:00:00 Completed [facility] DTAP 2005-09-20 00:00:00 Completed [facility] HIB 3 Dose Schedule 2005-09-20 00:00:00 Completed [facility] Hepatitis A Adult 2005-09-20 00:00:00 Completed [facility] Hep B, Adol or Pedi Dosage 2005-09-20 00:00:00 Completed [facility] Pneumococcal 13 Conjugate, PCV13 (Prevnar 13) 2005-09-20 00:00:00 Completed [facility] Polio (IPV/OPV) 2005-09-20 00:00:00 Completed [facility] DTAP 2005-09-20 00:00:00 Completed [facility] HIB 3 Dose Schedule 2005-09-20 00:00:00 Completed [facility] Hepatitis A Adult 2005-09-20 00:00:00 Completed [facility] Hep B, Adol or Pedi Dosage 2005-09-20 00:00:00 Completed [facility] Pneumococcal 13 Conjugate, PCV13 (Prevnar 13) 2005-09-20 00:00:00 Completed [facility] Polio (IPV/OPV) 2005-09-20 00:00:00 Completed [facility] DTAP 2005-09-20 00:00:00 Completed [facility] HIB 3 Dose Schedule 2005-09-20 00:00:00 Completed [facility] Hepatitis A Adult 2005-09-20 00:00:00 Completed [facility] Hep B, Adol or Pedi Dosage 2005-09-20 00:00:00 Completed [facility] Pneumococcal 13 Conjugate, PCV13 (Prevnar 13) 2005-09-20 00:00:00 Completed [facility] Polio (IPV/OPV) 2005-09-20 00:00:00 Completed [facility] DTAP 2005-09-20 00:00:00 Completed [facility] HIB 3 Dose Schedule 2005-09-20 00:00:00 Completed [facility] Hepatitis A Adult 2005-09-20 00:00:00 Completed [facility] Hep B, Adol or Pedi Dosage 2005-09-20 00:00:00 Completed [facility] Pneumococcal 13 Conjugate, PCV13 (Prevnar 13) 2005-09-20 00:00:00 Completed [facility] Polio (IPV/OPV) 2005-09-20 00:00:00 Completed [facility] DTAP 2005-09-20 00:00:00 Completed [facility] HIB 3 Dose Schedule 2005-09-20 00:00:00 Completed [facility] Hepatitis A Adult 2005-09-20 00:00:00 Completed [facility] Hep B, Adol or Pedi Dosage 2005-09-20 00:00:00 Completed [facility] Pneumococcal 13 Conjugate, PCV13 (Prevnar 13) 2005-09-20 00:00:00 Completed [facility] Polio (IPV/OPV) 2005-09-20 00:00:00 Completed [facility] DTAP 2005-09-20 00:00:00 Completed [facility] HIB 3 Dose Schedule 2005-09-20 00:00:00 Completed [facility] Hepatitis A Adult 2005-09-20 00:00:00 Completed [facility] Hep B, Adol or Pedi Dosage 2005-09-20 00:00:00 Completed [facility] Pneumococcal 13 Conjugate, PCV13 (Prevnar 13) 2005-09-20 00:00:00 Completed [facility] Polio (IPV/OPV) 2005-09-20 00:00:00 Completed [facility] DTAP 2005-09-20 00:00:00 Completed [facility] HIB 3 Dose Schedule 2005-09-20 00:00:00 Completed [facility] Hepatitis A Adult 2005-09-20 00:00:00 Completed [facility] Hep B, Adol or Pedi Dosage 2005-09-20 00:00:00 Completed [facility] Pneumococcal 13 Conjugate, PCV13 (Prevnar 13) 2005-09-20 00:00:00 Completed [facility] Polio (IPV/OPV) 2005-09-20 00:00:00 Completed [facility] DTAP 2005-09-20 00:00:00 Completed [facility] HIB 3 Dose Schedule 2005-09-20 00:00:00 Completed [facility] Hepatitis A Adult 2005-09-20 00:00:00 Completed [facility] Hep B, Adol or Pedi Dosage 2005-09-20 00:00:00 Completed [facility] Pneumococcal 13 Conjugate, PCV13 (Prevnar 13) 2005-09-20 00:00:00 Completed [facility] Polio (IPV/OPV) 2005-09-20 00:00:00 Completed [facility] DTAP 2005-09-20 00:00:00 Completed [facility] HIB 3 Dose Schedule 2005-09-20 00:00:00 Completed [facility] Hepatitis A Adult 2005-09-20 00:00:00 Completed [facility] Hep B, Adol or Pedi Dosage 2005-09-20 00:00:00 Completed [facility] Pneumococcal 13 Conjugate, PCV13 (Prevnar 13) 2005-09-20 00:00:00 Completed [facility] Polio (IPV/OPV) 2005-09-20 00:00:00 Completed [facility] DTAP 2005-09-20 00:00:00 Completed [facility] HIB 3 Dose Schedule 2005-09-20 00:00:00 Completed [facility] Hepatitis A Adult 2005-09-20 00:00:00 Completed [facility] Hep B, Adol or Pedi Dosage 2005-09-20 00:00:00 Completed [facility] Pneumococcal 13 Conjugate, PCV13 (Prevnar 13) 2005-09-20 00:00:00 Completed [facility] Polio (IPV/OPV) 2005-09-20 00:00:00 Completed [facility] DTAP 2005-09-20 00:00:00 Completed [facility] HIB 3 Dose Schedule 2005-09-20 00:00:00 Completed [facility] Hepatitis A Adult 2005-09-20 00:00:00 Completed [facility] Hep B, Adol or Pedi Dosage 2005-09-20 00:00:00 Completed [facility] Pneumococcal 13 Conjugate, PCV13 (Prevnar 13) 2005-09-20 00:00:00 Completed [facility] Polio (IPV/OPV) 2005-09-20 00:00:00 Completed [facility] DTAP 2005-09-20 00:00:00 Completed [facility] HIB 3 Dose Schedule 2005-09-20 00:00:00 Completed [facility] Hepatitis A Adult 2005-09-20 00:00:00 Completed [facility] Hep B, Adol or Pedi Dosage 2005-09-20 00:00:00 Completed [facility] Pneumococcal 13 Conjugate, PCV13 (Prevnar 13) 2005-09-20 00:00:00 Completed [facility] Polio (IPV/OPV) 2005-09-20 00:00:00 Completed [facility] DTAP 2005-09-20 00:00:00 Completed [facility] HIB 3 Dose Schedule 2005-09-20 00:00:00 Completed [facility] Hepatitis A Adult 2005-09-20 00:00:00 Completed [facility] Hep B, Adol or Pedi Dosage 2005-09-20 00:00:00 Completed [facility] Pneumococcal 13 Conjugate, PCV13 (Prevnar 13) 2005-09-20 00:00:00 Completed [facility] Polio (IPV/OPV) 2005-09-20 00:00:00 Completed [facility] DTAP 2005-09-20 00:00:00 Completed [facility] HIB 3 Dose Schedule 2005-09-20 00:00:00 Completed [facility] Hepatitis A Adult 2005-09-20 00:00:00 Completed [facility] Hep B, Adol or Pedi Dosage 2005-09-20 00:00:00 Completed [facility] Pneumococcal 13 Conjugate, PCV13 (Prevnar 13) 2005-09-20 00:00:00 Completed [facility] Polio (IPV/OPV) 2005-09-20 00:00:00 Completed [facility] DTAP 2005-09-20 00:00:00 Completed [facility] HIB 3 Dose Schedule 2005-09-20 00:00:00 Completed [facility] Hepatitis A Adult 2005-09-20 00:00:00 Completed [facility] Hep B, Adol or Pedi Dosage 2005-09-20 00:00:00 Completed [facility] Pneumococcal 13 Conjugate, PCV13 (Prevnar 13) 2005-09-20 00:00:00 Completed [facility] Polio (IPV/OPV) 2005-09-20 00:00:00 Completed [facility] DTAP 2005-09-20 00:00:00 Completed [facility] HIB 3 Dose Schedule 2005-09-20 00:00:00 Completed [facility] Hepatitis A Adult 2005-09-20 00:00:00 Completed [facility] Hep B, Adol or Pedi Dosage 2005-09-20 00:00:00 Completed [facility] Pneumococcal 13 Conjugate, PCV13 (Prevnar 13) 2005-09-20 00:00:00 Completed [facility] Polio (IPV/OPV) 2005-09-20 00:00:00 Completed [facility] DTAP 2005-09-20 00:00:00 Completed [facility] HIB 3 Dose Schedule 2005-09-20 00:00:00 Completed [facility] Hepatitis A Adult 2005-09-20 00:00:00 Completed [facility] Hep B, Adol or Pedi Dosage 2005-09-20 00:00:00 Completed [facility] Pneumococcal 13 Conjugate, PCV13 (Prevnar 13) 2005-09-20 00:00:00 Completed [facility] Polio (IPV/OPV) 2005-09-20 00:00:00 Completed [facility] DTAP 2005-09-20 00:00:00 Completed [facility] HIB 3 Dose Schedule 2005-09-20 00:00:00 Completed [facility] Hepatitis A Adult 2005-09-20 00:00:00 Completed [facility] Hep B, Adol or Pedi Dosage 2005-09-20 00:00:00 Completed [facility] Pneumococcal 13 Conjugate, PCV13 (Prevnar 13) 2005-09-20 00:00:00 Completed [facility] Polio (IPV/OPV) 2005-09-20 00:00:00 Completed [facility] DTaP, Unspecified Formulation 2005-09-20 00:00:00 Completed [facility] HEPATITIS A 2005-09-20 00:00:00 Completed [facility] HIB 4 Dose Schedule 2005-09-20 00:00:00 Completed [facility] Pneumococcal 7 Conjugate, PCV7 (Prevnar7) 2005-09-20 00:00:00 Completed [facility] IPV 2005-09-20 00:00:00 Completed [facility] DTAP 2005-09-20 00:00:00 Completed [facility] HIB 3 Dose Schedule 2005-09-20 00:00:00 Completed [facility] Hepatitis A Adult 2005-09-20 00:00:00 Completed [facility] Hep B, Adol or Pedi Dosage 2005-09-20 00:00:00 Completed [facility] Pneumococcal 13 Conjugate, PCV13 (Prevnar 13) 2005-09-20 00:00:00 Completed [facility] Polio (IPV/OPV) 2005-09-20 00:00:00 Completed [facility] DTaP, Unspecified Formulation 2005-09-20 00:00:00 Completed [facility] HEPATITIS A 2005-09-20 00:00:00 Completed [facility] HIB 4 Dose Schedule 2005-09-20 00:00:00 Completed [facility] Pneumococcal 7 Conjugate, PCV7 (Prevnar7) 2005-09-20 00:00:00 Completed [facility] IPV 2005-09-20 00:00:00 Completed [facility] DTAP 2005-09-20 00:00:00 Completed [facility] HIB 3 Dose Schedule 2005-09-20 00:00:00 Completed [facility] Hepatitis A Adult 2005-09-20 00:00:00 Completed [facility] Hep B, Adol or Pedi Dosage 2005-09-20 00:00:00 Completed [facility] Pneumococcal 13 Conjugate, PCV13 (Prevnar 13) 2005-09-20 00:00:00 Completed [facility] Polio (IPV/OPV) 2005-09-20 00:00:00 Completed [facility] DTaP, Unspecified Formulation 2005-09-20 00:00:00 Completed [facility] HEPATITIS A 2005-09-20 00:00:00 Completed [facility] HIB 4 Dose Schedule 2005-09-20 00:00:00 Completed [facility] Pneumococcal 7 Conjugate, PCV7 (Prevnar7) 2005-09-20 00:00:00 Completed [facility] IPV 2005-09-20 00:00:00 Completed [facility] DTAP 2005-09-20 00:00:00 Completed [facility] HIB 3 Dose Schedule 2005-09-20 00:00:00 Completed [facility] Hepatitis A Adult 2005-09-20 00:00:00 Completed [facility] Hep B, Adol or Pedi Dosage 2005-09-20 00:00:00 Completed [facility] Pneumococcal 13 Conjugate, PCV13 (Prevnar 13) 2005-09-20 00:00:00 Completed [facility] Polio (IPV/OPV) 2005-09-20 00:00:00 Completed [facility] DTaP, Unspecified Formulation 2005-09-20 00:00:00 Completed [facility] HEPATITIS A 2005-09-20 00:00:00 Completed [facility] HIB 4 Dose Schedule 2005-09-20 00:00:00 Completed [facility] Pneumococcal 7 Conjugate, PCV7 (Prevnar7) 2005-09-20 00:00:00 Completed [facility] IPV 2005-09-20 00:00:00 Completed [facility] DTAP 2005-09-20 00:00:00 Completed [facility] HIB 3 Dose Schedule 2005-09-20 00:00:00 Completed [facility] Hepatitis A Adult 2005-09-20 00:00:00 Completed [facility] Hep B, Adol or Pedi Dosage 2005-09-20 00:00:00 Completed [facility] Pneumococcal 13 Conjugate, PCV13 (Prevnar 13) 2005-09-20 00:00:00 Completed [facility] Polio (IPV/OPV) 2005-09-20 00:00:00 Completed [facility] DTaP, Unspecified Formulation 2005-09-20 00:00:00 Completed [facility] HEPATITIS A 2005-09-20 00:00:00 Completed [facility] HIB 4 Dose Schedule 2005-09-20 00:00:00 Completed [facility] Pneumococcal 7 Conjugate, PCV7 (Prevnar7) 2005-09-20 00:00:00 Completed [facility] IPV 2005-09-20 00:00:00 Completed [facility] DTAP 2005-09-20 00:00:00 Completed [facility] HIB 3 Dose Schedule 2005-09-20 00:00:00 Completed [facility] Hepatitis A Adult 2005-09-20 00:00:00 Completed [facility] Hep B, Adol or Pedi Dosage 2005-09-20 00:00:00 Completed [facility] Pneumococcal 13 Conjugate, PCV13 (Prevnar 13) 2005-09-20 00:00:00 Completed [facility] Polio (IPV/OPV) 2005-09-20 00:00:00 Completed [facility] DTaP, Unspecified Formulation 2005-09-20 00:00:00 Completed [facility] HEPATITIS A 2005-09-20 00:00:00 Completed [facility] HIB 4 Dose Schedule 2005-09-20 00:00:00 Completed [facility] Pneumococcal 7 Conjugate, PCV7 (Prevnar7) 2005-09-20 00:00:00 Completed [facility] IPV 2005-09-20 00:00:00 Completed [facility] DTAP 2005-09-20 00:00:00 Completed [facility] HIB 3 Dose Schedule 2005-09-20 00:00:00 Completed [facility] Hepatitis A Adult 2005-09-20 00:00:00 Completed [facility] Hep B, Adol or Pedi Dosage 2005-09-20 00:00:00 Completed [facility] Pneumococcal 13 Conjugate, PCV13 (Prevnar 13) 2005-09-20 00:00:00 Completed [facility] Polio (IPV/OPV) 2005-09-20 00:00:00 Completed [facility] DTaP, Unspecified Formulation 2005-09-20 00:00:00 Completed [facility] HEPATITIS A 2005-09-20 00:00:00 Completed [facility] HIB 4 Dose Schedule 2005-09-20 00:00:00 Completed [facility] Pneumococcal 7 Conjugate, PCV7 (Prevnar7) 2005-09-20 00:00:00 Completed [facility] IPV 2005-09-20 00:00:00 Completed [facility] DTAP 2005-09-20 00:00:00 Completed [facility] HIB 3 Dose Schedule 2005-09-20 00:00:00 Completed [facility] Hepatitis A Adult 2005-09-20 00:00:00 Completed [facility] Hep B, Adol or Pedi Dosage 2005-09-20 00:00:00 Completed [facility] Pneumococcal 13 Conjugate, PCV13 (Prevnar 13) 2005-09-20 00:00:00 Completed [facility] Polio (IPV/OPV) 2005-09-20 00:00:00 Completed [facility] DTaP, Unspecified Formulation 2005-09-20 00:00:00 Completed [facility] HEPATITIS A 2005-09-20 00:00:00 Completed [facility] HIB 4 Dose Schedule 2005-09-20 00:00:00 Completed [facility] Pneumococcal 7 Conjugate, PCV7 (Prevnar7) 2005-09-20 00:00:00 Completed [facility] IPV 2005-09-20 00:00:00 Completed [facility] DTAP 2005-09-20 00:00:00 Completed [facility] HIB 3 Dose Schedule 2005-09-20 00:00:00 Completed [facility] Hepatitis A Adult 2005-09-20 00:00:00 Completed [facility] Hep B, Adol or Pedi Dosage 2005-09-20 00:00:00 Completed [facility] Pneumococcal 13 Conjugate, PCV13 (Prevnar 13) 2005-09-20 00:00:00 Completed [facility] Polio (IPV/OPV) 2005-09-20 00:00:00 Completed [facility] DTaP, Unspecified Formulation 2005-09-20 00:00:00 Completed [facility] HEPATITIS A 2005-09-20 00:00:00 Completed [facility] HIB 4 Dose Schedule 2005-09-20 00:00:00 Completed [facility] Pneumococcal 7 Conjugate, PCV7 (Prevnar7) 2005-09-20 00:00:00 Completed [facility] IPV 2005-09-20 00:00:00 Completed [facility] DTAP 2005-09-20 00:00:00 Completed [facility] HIB 3 Dose Schedule 2005-09-20 00:00:00 Completed [facility] Hepatitis A Adult 2005-09-20 00:00:00 Completed [facility] Hep B, Adol or Pedi Dosage 2005-09-20 00:00:00 Completed [facility] Pneumococcal 13 Conjugate, PCV13 (Prevnar 13) 2005-09-20 00:00:00 Completed [facility] Polio (IPV/OPV) 2005-09-20 00:00:00 Completed [facility] DTaP, Unspecified Formulation 2005-09-20 00:00:00 Completed [facility] HEPATITIS A 2005-09-20 00:00:00 Completed [facility] HIB 4 Dose Schedule 2005-09-20 00:00:00 Completed [facility] Pneumococcal 7 Conjugate, PCV7 (Prevnar7) 2005-09-20 00:00:00 Completed [facility] IPV 2005-09-20 00:00:00 Completed [facility] DTAP 2005-09-20 00:00:00 Completed [facility] HIB 3 Dose Schedule 2005-09-20 00:00:00 Completed [facility] Hepatitis A Adult 2005-09-20 00:00:00 Completed [facility] Hep B, Adol or Pedi Dosage 2005-09-20 00:00:00 Completed [facility] Pneumococcal 13 Conjugate, PCV13 (Prevnar 13) 2005-09-20 00:00:00 Completed [facility] Polio (IPV/OPV) 2005-09-20 00:00:00 Completed [facility] DTaP, Unspecified Formulation 2005-09-20 00:00:00 Completed [facility] HEPATITIS A 2005-09-20 00:00:00 Completed [facility] HIB 4 Dose Schedule 2005-09-20 00:00:00 Completed [facility] Pneumococcal 7 Conjugate, PCV7 (Prevnar7) 2005-09-20 00:00:00 Completed [facility] IPV 2005-09-20 00:00:00 Completed [facility] DTAP 2005-09-20 00:00:00 Completed [facility] HIB 3 Dose Schedule 2005-09-20 00:00:00 Completed [facility] Hepatitis A Adult 2005-09-20 00:00:00 Completed [facility] Hep B, Adol or Pedi Dosage 2005-09-20 00:00:00 Completed [facility] Pneumococcal 13 Conjugate, PCV13 (Prevnar 13) 2005-09-20 00:00:00 Completed [facility] Polio (IPV/OPV) 2005-09-20 00:00:00 Completed [facility] DTaP, Unspecified Formulation 2005-09-20 00:00:00 Completed [facility] HEPATITIS A 2005-09-20 00:00:00 Completed [facility] HIB 4 Dose Schedule 2005-09-20 00:00:00 Completed [facility] Pneumococcal 7 Conjugate, PCV7 (Prevnar7) 2005-09-20 00:00:00 Completed [facility] IPV 2005-09-20 00:00:00 Completed [facility] DTAP 2005-09-20 00:00:00 Completed [facility] HIB 3 Dose Schedule 2005-09-20 00:00:00 Completed [facility] Hepatitis A Adult 2005-09-20 00:00:00 Completed [facility] Hep B, Adol or Pedi Dosage 2005-09-20 00:00:00 Completed [facility] Pneumococcal 13 Conjugate, PCV13 (Prevnar 13) 2005-09-20 00:00:00 Completed [facility] Polio (IPV/OPV) 2005-09-20 00:00:00 Completed [facility] DTaP, Unspecified Formulation 2005-09-20 00:00:00 Completed [facility] HEPATITIS A 2005-09-20 00:00:00 Completed [facility] HIB 4 Dose Schedule 2005-09-20 00:00:00 Completed [facility] Pneumococcal 7 Conjugate, PCV7 (Prevnar7) 2005-09-20 00:00:00 Completed [facility] IPV 2005-09-20 00:00:00 Completed [facility] DTAP 2005-09-20 00:00:00 Completed [facility] HIB 3 Dose Schedule 2005-09-20 00:00:00 Completed [facility] Hepatitis A Adult 2005-09-20 00:00:00 Completed [facility] Hep B, Adol or Pedi Dosage 2005-09-20 00:00:00 Completed [facility] Pneumococcal 13 Conjugate, PCV13 (Prevnar 13) 2005-09-20 00:00:00 Completed [facility] Polio (IPV/OPV) 2005-09-20 00:00:00 Completed [facility] DTaP, Unspecified Formulation 2005-09-20 00:00:00 Completed [facility] HEPATITIS A 2005-09-20 00:00:00 Completed [facility] HIB 4 Dose Schedule 2005-09-20 00:00:00 Completed [facility] Pneumococcal 7 Conjugate, PCV7 (Prevnar7) 2005-09-20 00:00:00 Completed [facility] IPV 2005-09-20 00:00:00 Completed [facility] DTAP 2005-09-20 00:00:00 Completed [facility] HIB 3 Dose Schedule 2005-09-20 00:00:00 Completed [facility] Hepatitis A Adult 2005-09-20 00:00:00 Completed [facility] Hep B, Adol or Pedi Dosage 2005-09-20 00:00:00 Completed [facility] Pneumococcal 13 Conjugate, PCV13 (Prevnar 13) 2005-09-20 00:00:00 Completed [facility] Polio (IPV/OPV) 2005-09-20 00:00:00 Completed [facility] DTaP, Unspecified Formulation 2005-09-20 00:00:00 Completed [facility] HEPATITIS A 2005-09-20 00:00:00 Completed [facility] HIB 4 Dose Schedule 2005-09-20 00:00:00 Completed [facility] Pneumococcal 7 Conjugate, PCV7 (Prevnar7) 2005-09-20 00:00:00 Completed [facility] IPV 2005-09-20 00:00:00 Completed [facility] DTAP 2005-09-20 00:00:00 Completed [facility] HIB 3 Dose Schedule 2005-09-20 00:00:00 Completed [facility] Hepatitis A Adult 2005-09-20 00:00:00 Completed [facility] Hep B, Adol or Pedi Dosage 2005-09-20 00:00:00 Completed [facility] Pneumococcal 13 Conjugate, PCV13 (Prevnar 13) 2005-09-20 00:00:00 Completed [facility] Polio (IPV/OPV) 2005-09-20 00:00:00 Completed [facility] DTaP, Unspecified Formulation 2005-09-20 00:00:00 Completed [facility] HEPATITIS A 2005-09-20 00:00:00 Completed [facility] HIB 4 Dose Schedule 2005-09-20 00:00:00 Completed [facility] Pneumococcal 7 Conjugate, PCV7 (Prevnar7) 2005-09-20 00:00:00 Completed [facility] IPV 2005-09-20 00:00:00 Completed [facility] DTAP 2005-09-20 00:00:00 Completed [facility] HIB 3 Dose Schedule 2005-09-20 00:00:00 Completed [facility] Hepatitis A Adult 2005-09-20 00:00:00 Completed [facility] Hep B, Adol or Pedi Dosage 2005-09-20 00:00:00 Completed [facility] Pneumococcal 13 Conjugate, PCV13 (Prevnar 13) 2005-09-20 00:00:00 Completed [facility] Polio (IPV/OPV) 2005-09-20 00:00:00 Completed [facility] DTaP, Unspecified Formulation 2005-09-20 00:00:00 Completed [facility] HEPATITIS A 2005-09-20 00:00:00 Completed [facility] HIB 4 Dose Schedule 2005-09-20 00:00:00 Completed [facility] Pneumococcal 7 Conjugate, PCV7 (Prevnar7) 2005-09-20 00:00:00 Completed [facility] IPV 2005-09-20 00:00:00 Completed [facility] DTAP 2005-09-20 00:00:00 Completed [facility] HIB 3 Dose Schedule 2005-09-20 00:00:00 Completed [facility] Hepatitis A Adult 2005-09-20 00:00:00 Completed [facility] Hep B, Adol or Pedi Dosage 2005-09-20 00:00:00 Completed [facility] Pneumococcal 13 Conjugate, PCV13 (Prevnar 13) 2005-09-20 00:00:00 Completed [facility] Polio (IPV/OPV) 2005-09-20 00:00:00 Completed [facility] DTaP, Unspecified Formulation 2005-09-20 00:00:00 Completed [facility] HEPATITIS A 2005-09-20 00:00:00 Completed [facility] HIB 4 Dose Schedule 2005-09-20 00:00:00 Completed [facility] Pneumococcal 7 Conjugate, PCV7 (Prevnar7) 2005-09-20 00:00:00 Completed [facility] IPV 2005-09-20 00:00:00 Completed [facility] DTAP 2005-09-20 00:00:00 Completed [facility] HIB 3 Dose Schedule 2005-09-20 00:00:00 Completed [facility] Hepatitis A Adult 2005-09-20 00:00:00 Completed [facility] Hep B, Adol or Pedi Dosage 2005-09-20 00:00:00 Completed [facility] Pneumococcal 13 Conjugate, PCV13 (Prevnar 13) 2005-09-20 00:00:00 Completed [facility] Polio (IPV/OPV) 2005-09-20 00:00:00 Completed [facility] DTaP, Unspecified Formulation 2005-09-20 00:00:00 Completed [facility] HEPATITIS A 2005-09-20 00:00:00 Completed [facility] HIB 4 Dose Schedule 2005-09-20 00:00:00 Completed [facility] Pneumococcal 7 Conjugate, PCV7 (Prevnar7) 2005-09-20 00:00:00 Completed [facility] IPV 2005-09-20 00:00:00 Completed [facility] DTAP 2005-09-20 00:00:00 Completed [facility] HIB 3 Dose Schedule 2005-09-20 00:00:00 Completed [facility] Hepatitis A Adult 2005-09-20 00:00:00 Completed [facility] Hep B, Adol or Pedi Dosage 2005-09-20 00:00:00 Completed [facility] Pneumococcal 13 Conjugate, PCV13 (Prevnar 13) 2005-09-20 00:00:00 Completed [facility] Polio (IPV/OPV) 2005-09-20 00:00:00 Completed [facility] DTaP, Unspecified Formulation 2005-09-20 00:00:00 Completed [facility] HEPATITIS A 2005-09-20 00:00:00 Completed [facility] HIB 4 Dose Schedule 2005-09-20 00:00:00 Completed [facility] Pneumococcal 7 Conjugate, PCV7 (Prevnar7) 2005-09-20 00:00:00 Completed [facility] IPV 2005-09-20 00:00:00 Completed [facility] DTAP 2005-09-20 00:00:00 Completed [facility] HIB 3 Dose Schedule 2005-09-20 00:00:00 Completed [facility] Hepatitis A Adult 2005-09-20 00:00:00 Completed [facility] Hep B, Adol or Pedi Dosage 2005-09-20 00:00:00 Completed [facility] Pneumococcal 13 Conjugate, PCV13 (Prevnar 13) 2005-09-20 00:00:00 Completed [facility] Polio (IPV/OPV) 2005-09-20 00:00:00 Completed [facility] DTaP, Unspecified Formulation 2005-09-20 00:00:00 Completed [facility] HEPATITIS A 2005-09-20 00:00:00 Completed [facility] HIB 4 Dose Schedule 2005-09-20 00:00:00 Completed [facility] Pneumococcal 7 Conjugate, PCV7 (Prevnar7) 2005-09-20 00:00:00 Completed [facility] IPV 2005-09-20 00:00:00 Completed [facility] DTAP 2005-09-20 00:00:00 Completed [facility] HIB 3 Dose Schedule 2005-09-20 00:00:00 Completed [facility] Hepatitis A Adult 2005-09-20 00:00:00 Completed [facility] Hep B, Adol or Pedi Dosage 2005-09-20 00:00:00 Completed [facility] Pneumococcal 13 Conjugate, PCV13 (Prevnar 13) 2005-09-20 00:00:00 Completed [facility] Polio (IPV/OPV) 2005-09-20 00:00:00 Completed [facility] DTaP, Unspecified Formulation 2005-09-20 00:00:00 Completed [facility] HEPATITIS A 2005-09-20 00:00:00 Completed [facility] HIB 4 Dose Schedule 2005-09-20 00:00:00 Completed [facility] Pneumococcal 7 Conjugate, PCV7 (Prevnar7) 2005-09-20 00:00:00 Completed [facility] IPV 2005-09-20 00:00:00 Completed [facility] DTAP 2005-09-20 00:00:00 Completed HIB 3 Dose Schedule 2005-09-20 00:00:00 Completed Hepatitis A Adult 2005-09-20 00:00:00 Completed Hep B, Adol or Pedi Dosage 2005-09-20 00:00:00 Completed Pneumococcal 13 Conjugate, PCV13 (Prevnar 13) 2005-09-20 00:00:00 Completed Polio (IPV/OPV) 2005-09-20 00:00:00 Completed DTaP, Unspecified Formulation 2005-09-20 00:00:00 Completed HEPATITIS A 2005-09-20 00:00:00 Completed HIB 4 Dose Schedule 2005-09-20 00:00:00 Completed Pneumococcal 7 Conjugate, PCV7 (Prevnar7) 2005-09-20 00:00:00 Completed IPV 2005-09-20 00:00:00 Completed DTAP 2004-07-22 00:00:00 Completed [facility] Hep B, Adol or Pedi Dosage 2004-07-22 00:00:00 Completed [facility] MMR 2004-07-22 00:00:00 Completed [facility] Polio (IPV/OPV) 2004-07-22 00:00:00 Completed [facility] Varicella (varivax)(chicken pox) 2004-07-22 00:00:00 Completed [facility] DTAP 2004-07-22 00:00:00 Completed [facility] Hep B, Adol or Pedi Dosage 2004-07-22 00:00:00 Completed [facility] MMR 2004-07-22 00:00:00 Completed [facility] Polio (IPV/OPV) 2004-07-22 00:00:00 Completed [facility] Varicella (varivax)(chicken pox) 2004-07-22 00:00:00 Completed [facility] DTAP 2004-07-22 00:00:00 Completed [facility] Hep B, Adol or Pedi Dosage 2004-07-22 00:00:00 Completed [facility] MMR 2004-07-22 00:00:00 Completed [facility] Polio (IPV/OPV) 2004-07-22 00:00:00 Completed [facility] Varicella (varivax)(chicken pox) 2004-07-22 00:00:00 Completed [facility] DTAP 2004-07-22 00:00:00 Completed [facility] Hep B, Adol or Pedi Dosage 2004-07-22 00:00:00 Completed [facility] MMR 2004-07-22 00:00:00 Completed [facility] Polio (IPV/OPV) 2004-07-22 00:00:00 Completed [facility] Varicella (varivax)(chicken pox) 2004-07-22 00:00:00 Completed [facility] DTAP 2004-07-22 00:00:00 Completed [facility] Hep B, Adol or Pedi Dosage 2004-07-22 00:00:00 Completed [facility] MMR 2004-07-22 00:00:00 Completed [facility] Polio (IPV/OPV) 2004-07-22 00:00:00 Completed [facility] Varicella (varivax)(chicken pox) 2004-07-22 00:00:00 Completed [facility] DTAP 2004-07-22 00:00:00 Completed [facility] Hep B, Adol or Pedi Dosage 2004-07-22 00:00:00 Completed [facility] MMR 2004-07-22 00:00:00 Completed [facility] Polio (IPV/OPV) 2004-07-22 00:00:00 Completed [facility] Varicella (varivax)(chicken pox) 2004-07-22 00:00:00 Completed [facility] DTAP 2004-07-22 00:00:00 Completed [facility] Hep B, Adol or Pedi Dosage 2004-07-22 00:00:00 Completed [facility] MMR 2004-07-22 00:00:00 Completed [facility] Polio (IPV/OPV) 2004-07-22 00:00:00 Completed [facility] Varicella (varivax)(chicken pox) 2004-07-22 00:00:00 Completed [facility] DTAP 2004-07-22 00:00:00 Completed [facility] Hep B, Adol or Pedi Dosage 2004-07-22 00:00:00 Completed [facility] MMR 2004-07-22 00:00:00 Completed [facility] Polio (IPV/OPV) 2004-07-22 00:00:00 Completed [facility] Varicella (varivax)(chicken pox) 2004-07-22 00:00:00 Completed [facility] DTAP 2004-07-22 00:00:00 Completed [facility] Hep B, Adol or Pedi Dosage 2004-07-22 00:00:00 Completed [facility] MMR 2004-07-22 00:00:00 Completed [facility] Polio (IPV/OPV) 2004-07-22 00:00:00 Completed [facility] Varicella (varivax)(chicken pox) 2004-07-22 00:00:00 Completed [facility] DTAP 2004-07-22 00:00:00 Completed [facility] Hep B, Adol or Pedi Dosage 2004-07-22 00:00:00 Completed [facility] MMR 2004-07-22 00:00:00 Completed [facility] Polio (IPV/OPV) 2004-07-22 00:00:00 Completed [facility] Varicella (varivax)(chicken pox) 2004-07-22 00:00:00 Completed [facility] DTAP 2004-07-22 00:00:00 Completed [facility] Hep B, Adol or Pedi Dosage 2004-07-22 00:00:00 Completed [facility] MMR 2004-07-22 00:00:00 Completed [facility] Polio (IPV/OPV) 2004-07-22 00:00:00 Completed [facility] Varicella (varivax)(chicken pox) 2004-07-22 00:00:00 Completed [facility] DTAP 2004-07-22 00:00:00 Completed [facility] Hep B, Adol or Pedi Dosage 2004-07-22 00:00:00 Completed [facility] MMR 2004-07-22 00:00:00 Completed [facility] Polio (IPV/OPV) 2004-07-22 00:00:00 Completed [facility] Varicella (varivax)(chicken pox) 2004-07-22 00:00:00 Completed [facility] DTAP 2004-07-22 00:00:00 Completed [facility] Hep B, Adol or Pedi Dosage 2004-07-22 00:00:00 Completed [facility] MMR 2004-07-22 00:00:00 Completed [facility] Polio (IPV/OPV) 2004-07-22 00:00:00 Completed [facility] Varicella (varivax)(chicken pox) 2004-07-22 00:00:00 Completed [facility] DTAP 2004-07-22 00:00:00 Completed [facility] Hep B, Adol or Pedi Dosage 2004-07-22 00:00:00 Completed [facility] MMR 2004-07-22 00:00:00 Completed [facility] Polio (IPV/OPV) 2004-07-22 00:00:00 Completed [facility] Varicella (varivax)(chicken pox) 2004-07-22 00:00:00 Completed [facility] DTAP 2004-07-22 00:00:00 Completed [facility] Hep B, Adol or Pedi Dosage 2004-07-22 00:00:00 Completed [facility] MMR 2004-07-22 00:00:00 Completed [facility] Polio (IPV/OPV) 2004-07-22 00:00:00 Completed [facility] Varicella (varivax)(chicken pox) 2004-07-22 00:00:00 Completed [facility] DTAP 2004-07-22 00:00:00 Completed [facility] Hep B, Adol or Pedi Dosage 2004-07-22 00:00:00 Completed [facility] MMR 2004-07-22 00:00:00 Completed [facility] Polio (IPV/OPV) 2004-07-22 00:00:00 Completed [facility] Varicella (varivax)(chicken pox) 2004-07-22 00:00:00 Completed [facility] DTAP 2004-07-22 00:00:00 Completed [facility] Hep B, Adol or Pedi Dosage 2004-07-22 00:00:00 Completed [facility] MMR 2004-07-22 00:00:00 Completed [facility] Polio (IPV/OPV) 2004-07-22 00:00:00 Completed [facility] Varicella (varivax)(chicken pox) 2004-07-22 00:00:00 Completed [facility] DTAP 2004-07-22 00:00:00 Completed [facility] Hep B, Adol or Pedi Dosage 2004-07-22 00:00:00 Completed [facility] MMR 2004-07-22 00:00:00 Completed [facility] Polio (IPV/OPV) 2004-07-22 00:00:00 Completed [facility] Varicella (varivax)(chicken pox) 2004-07-22 00:00:00 Completed [facility] DTAP 2004-07-22 00:00:00 Completed [facility] Hep B, Adol or Pedi Dosage 2004-07-22 00:00:00 Completed [facility] MMR 2004-07-22 00:00:00 Completed [facility] Polio (IPV/OPV) 2004-07-22 00:00:00 Completed [facility] Varicella (varivax)(chicken pox) 2004-07-22 00:00:00 Completed [facility] DTAP 2004-07-22 00:00:00 Completed [facility] Hep B, Adol or Pedi Dosage 2004-07-22 00:00:00 Completed [facility] MMR 2004-07-22 00:00:00 Completed [facility] Polio (IPV/OPV) 2004-07-22 00:00:00 Completed [facility] Varicella (varivax)(chicken pox) 2004-07-22 00:00:00 Completed [facility] DTAP 2004-07-22 00:00:00 Completed [facility] Hep B, Adol or Pedi Dosage 2004-07-22 00:00:00 Completed [facility] MMR 2004-07-22 00:00:00 Completed [facility] Polio (IPV/OPV) 2004-07-22 00:00:00 Completed [facility] Varicella (varivax)(chicken pox) 2004-07-22 00:00:00 Completed [facility] DTAP 2004-07-22 00:00:00 Completed [facility] Hep B, Adol or Pedi Dosage 2004-07-22 00:00:00 Completed [facility] MMR 2004-07-22 00:00:00 Completed [facility] Polio (IPV/OPV) 2004-07-22 00:00:00 Completed [facility] Varicella (varivax)(chicken pox) 2004-07-22 00:00:00 Completed [facility] DTAP 2004-07-22 00:00:00 Completed [facility] Hep B, Adol or Pedi Dosage 2004-07-22 00:00:00 Completed [facility] MMR 2004-07-22 00:00:00 Completed [facility] Polio (IPV/OPV) 2004-07-22 00:00:00 Completed [facility] Varicella (varivax)(chicken pox) 2004-07-22 00:00:00 Completed [facility] DTAP 2004-07-22 00:00:00 Completed [facility] Hep B, Adol or Pedi Dosage 2004-07-22 00:00:00 Completed [facility] MMR 2004-07-22 00:00:00 Completed [facility] Polio (IPV/OPV) 2004-07-22 00:00:00 Completed [facility] Varicella (varivax)(chicken pox) 2004-07-22 00:00:00 Completed [facility] DTAP 2004-07-22 00:00:00 Completed [facility] Hep B, Adol or Pedi Dosage 2004-07-22 00:00:00 Completed [facility] MMR 2004-07-22 00:00:00 Completed [facility] Polio (IPV/OPV) 2004-07-22 00:00:00 Completed [facility] Varicella (varivax)(chicken pox) 2004-07-22 00:00:00 Completed [facility] DTAP 2004-07-22 00:00:00 Completed [facility] Hep B, Adol or Pedi Dosage 2004-07-22 00:00:00 Completed [facility] MMR 2004-07-22 00:00:00 Completed [facility] Polio (IPV/OPV) 2004-07-22 00:00:00 Completed [facility] Varicella (varivax)(chicken pox) 2004-07-22 00:00:00 Completed [facility] DTAP 2004-07-22 00:00:00 Completed [facility] Hep B, Adol or Pedi Dosage 2004-07-22 00:00:00 Completed [facility] MMR 2004-07-22 00:00:00 Completed [facility] Polio (IPV/OPV) 2004-07-22 00:00:00 Completed [facility] Varicella (varivax)(chicken pox) 2004-07-22 00:00:00 Completed [facility] DTAP 2004-07-22 00:00:00 Completed [facility] Hep B, Adol or Pedi Dosage 2004-07-22 00:00:00 Completed [facility] MMR 2004-07-22 00:00:00 Completed [facility] Polio (IPV/OPV) 2004-07-22 00:00:00 Completed [facility] Varicella (varivax)(chicken pox) 2004-07-22 00:00:00 Completed [facility] DTAP 2004-07-22 00:00:00 Completed [facility] Hep B, Adol or Pedi Dosage 2004-07-22 00:00:00 Completed [facility] MMR 2004-07-22 00:00:00 Completed [facility] Polio (IPV/OPV) 2004-07-22 00:00:00 Completed [facility] Varicella (varivax)(chicken pox) 2004-07-22 00:00:00 Completed [facility] DTAP 2004-07-22 00:00:00 Completed [facility] Hep B, Adol or Pedi Dosage 2004-07-22 00:00:00 Completed [facility] MMR 2004-07-22 00:00:00 Completed [facility] Polio (IPV/OPV) 2004-07-22 00:00:00 Completed [facility] Varicella (varivax)(chicken pox) 2004-07-22 00:00:00 Completed [facility] DTaP, Unspecified Formulation 2004-07-22 00:00:00 Completed [facility] IPV 2004-07-22 00:00:00 Completed [facility] DTAP 2004-07-22 00:00:00 Completed [facility] Hep B, Adol or Pedi Dosage 2004-07-22 00:00:00 Completed [facility] MMR 2004-07-22 00:00:00 Completed [facility] Polio (IPV/OPV) 2004-07-22 00:00:00 Completed [facility] Varicella (varivax)(chicken pox) 2004-07-22 00:00:00 Completed [facility] DTaP, Unspecified Formulation 2004-07-22 00:00:00 Completed [facility] IPV 2004-07-22 00:00:00 Completed [facility] DTAP 2004-07-22 00:00:00 Completed [facility] Hep B, Adol or Pedi Dosage 2004-07-22 00:00:00 Completed [facility] MMR 2004-07-22 00:00:00 Completed [facility] Polio (IPV/OPV) 2004-07-22 00:00:00 Completed [facility] Varicella (varivax)(chicken pox) 2004-07-22 00:00:00 Completed [facility] DTaP, Unspecified Formulation 2004-07-22 00:00:00 Completed [facility] IPV 2004-07-22 00:00:00 Completed [facility] DTAP 2004-07-22 00:00:00 Completed [facility] Hep B, Adol or Pedi Dosage 2004-07-22 00:00:00 Completed [facility] MMR 2004-07-22 00:00:00 Completed [facility] Polio (IPV/OPV) 2004-07-22 00:00:00 Completed [facility] Varicella (varivax)(chicken pox) 2004-07-22 00:00:00 Completed [facility] DTaP, Unspecified Formulation 2004-07-22 00:00:00 Completed [facility] IPV 2004-07-22 00:00:00 Completed [facility] DTAP 2004-07-22 00:00:00 Completed [facility] Hep B, Adol or Pedi Dosage 2004-07-22 00:00:00 Completed [facility] MMR 2004-07-22 00:00:00 Completed [facility] Polio (IPV/OPV) 2004-07-22 00:00:00 Completed [facility] Varicella (varivax)(chicken pox) 2004-07-22 00:00:00 Completed [facility] DTaP, Unspecified Formulation 2004-07-22 00:00:00 Completed [facility] IPV 2004-07-22 00:00:00 Completed [facility] DTAP 2004-07-22 00:00:00 Completed [facility] Hep B, Adol or Pedi Dosage 2004-07-22 00:00:00 Completed [facility] MMR 2004-07-22 00:00:00 Completed [facility] Polio (IPV/OPV) 2004-07-22 00:00:00 Completed [facility] Varicella (varivax)(chicken pox) 2004-07-22 00:00:00 Completed [facility] DTaP, Unspecified Formulation 2004-07-22 00:00:00 Completed [facility] IPV 2004-07-22 00:00:00 Completed [facility] DTAP 2004-07-22 00:00:00 Completed [facility] Hep B, Adol or Pedi Dosage 2004-07-22 00:00:00 Completed [facility] MMR 2004-07-22 00:00:00 Completed [facility] Polio (IPV/OPV) 2004-07-22 00:00:00 Completed [facility] Varicella (varivax)(chicken pox) 2004-07-22 00:00:00 Completed [facility] DTaP, Unspecified Formulation 2004-07-22 00:00:00 Completed [facility] IPV 2004-07-22 00:00:00 Completed [facility] DTAP 2004-07-22 00:00:00 Completed [facility] Hep B, Adol or Pedi Dosage 2004-07-22 00:00:00 Completed [facility] MMR 2004-07-22 00:00:00 Completed [facility] Polio (IPV/OPV) 2004-07-22 00:00:00 Completed [facility] Varicella (varivax)(chicken pox) 2004-07-22 00:00:00 Completed [facility] DTaP, Unspecified Formulation 2004-07-22 00:00:00 Completed [facility] IPV 2004-07-22 00:00:00 Completed [facility] DTAP 2004-07-22 00:00:00 Completed [facility] Hep B, Adol or Pedi Dosage 2004-07-22 00:00:00 Completed [facility] MMR 2004-07-22 00:00:00 Completed [facility] Polio (IPV/OPV) 2004-07-22 00:00:00 Completed [facility] Varicella (varivax)(chicken pox) 2004-07-22 00:00:00 Completed [facility] DTaP, Unspecified Formulation 2004-07-22 00:00:00 Completed [facility] IPV 2004-07-22 00:00:00 Completed [facility] DTAP 2004-07-22 00:00:00 Completed [facility] Hep B, Adol or Pedi Dosage 2004-07-22 00:00:00 Completed [facility] MMR 2004-07-22 00:00:00 Completed [facility] Polio (IPV/OPV) 2004-07-22 00:00:00 Completed [facility] Varicella (varivax)(chicken pox) 2004-07-22 00:00:00 Completed [facility] DTaP, Unspecified Formulation 2004-07-22 00:00:00 Completed [facility] IPV 2004-07-22 00:00:00 Completed [facility] DTAP 2004-07-22 00:00:00 Completed [facility] Hep B, Adol or Pedi Dosage 2004-07-22 00:00:00 Completed [facility] MMR 2004-07-22 00:00:00 Completed [facility] Polio (IPV/OPV) 2004-07-22 00:00:00 Completed [facility] Varicella (varivax)(chicken pox) 2004-07-22 00:00:00 Completed [facility] DTaP, Unspecified Formulation 2004-07-22 00:00:00 Completed [facility] IPV 2004-07-22 00:00:00 Completed [facility] DTAP 2004-07-22 00:00:00 Completed [facility] Hep B, Adol or Pedi Dosage 2004-07-22 00:00:00 Completed [facility] MMR 2004-07-22 00:00:00 Completed [facility] Polio (IPV/OPV) 2004-07-22 00:00:00 Completed [facility] Varicella (varivax)(chicken pox) 2004-07-22 00:00:00 Completed [facility] DTaP, Unspecified Formulation 2004-07-22 00:00:00 Completed [facility] IPV 2004-07-22 00:00:00 Completed [facility] DTAP 2004-07-22 00:00:00 Completed [facility] Hep B, Adol or Pedi Dosage 2004-07-22 00:00:00 Completed [facility] MMR 2004-07-22 00:00:00 Completed [facility] Polio (IPV/OPV) 2004-07-22 00:00:00 Completed [facility] Varicella (varivax)(chicken pox) 2004-07-22 00:00:00 Completed [facility] DTaP, Unspecified Formulation 2004-07-22 00:00:00 Completed [facility] IPV 2004-07-22 00:00:00 Completed [facility] DTAP 2004-07-22 00:00:00 Completed [facility] Hep B, Adol or Pedi Dosage 2004-07-22 00:00:00 Completed [facility] MMR 2004-07-22 00:00:00 Completed [facility] Polio (IPV/OPV) 2004-07-22 00:00:00 Completed [facility] Varicella (varivax)(chicken pox) 2004-07-22 00:00:00 Completed [facility] DTaP, Unspecified Formulation 2004-07-22 00:00:00 Completed [facility] IPV 2004-07-22 00:00:00 Completed [facility] DTAP 2004-07-22 00:00:00 Completed [facility] Hep B, Adol or Pedi Dosage 2004-07-22 00:00:00 Completed [facility] MMR 2004-07-22 00:00:00 Completed [facility] Polio (IPV/OPV) 2004-07-22 00:00:00 Completed [facility] Varicella (varivax)(chicken pox) 2004-07-22 00:00:00 Completed [facility] DTaP, Unspecified Formulation 2004-07-22 00:00:00 Completed [facility] IPV 2004-07-22 00:00:00 Completed [facility] DTAP 2004-07-22 00:00:00 Completed [facility] Hep B, Adol or Pedi Dosage 2004-07-22 00:00:00 Completed [facility] MMR 2004-07-22 00:00:00 Completed [facility] Polio (IPV/OPV) 2004-07-22 00:00:00 Completed [facility] Varicella (varivax)(chicken pox) 2004-07-22 00:00:00 Completed [facility] DTaP, Unspecified Formulation 2004-07-22 00:00:00 Completed [facility] IPV 2004-07-22 00:00:00 Completed [facility] DTAP 2004-07-22 00:00:00 Completed [facility] Hep B, Adol or Pedi Dosage 2004-07-22 00:00:00 Completed [facility] MMR 2004-07-22 00:00:00 Completed [facility] Polio (IPV/OPV) 2004-07-22 00:00:00 Completed [facility] Varicella (varivax)(chicken pox) 2004-07-22 00:00:00 Completed [facility] DTaP, Unspecified Formulation 2004-07-22 00:00:00 Completed [facility] IPV 2004-07-22 00:00:00 Completed [facility] DTAP 2004-07-22 00:00:00 Completed [facility] Hep B, Adol or Pedi Dosage 2004-07-22 00:00:00 Completed [facility] MMR 2004-07-22 00:00:00 Completed [facility] Polio (IPV/OPV) 2004-07-22 00:00:00 Completed [facility] Varicella (varivax)(chicken pox) 2004-07-22 00:00:00 Completed [facility] DTaP, Unspecified Formulation 2004-07-22 00:00:00 Completed [facility] IPV 2004-07-22 00:00:00 Completed [facility] DTAP 2004-07-22 00:00:00 Completed [facility] Hep B, Adol or Pedi Dosage 2004-07-22 00:00:00 Completed [facility] MMR 2004-07-22 00:00:00 Completed [facility] Polio (IPV/OPV) 2004-07-22 00:00:00 Completed [facility] Varicella (varivax)(chicken pox) 2004-07-22 00:00:00 Completed [facility] DTaP, Unspecified Formulation 2004-07-22 00:00:00 Completed [facility] IPV 2004-07-22 00:00:00 Completed [facility] DTAP 2004-07-22 00:00:00 Completed [facility] Hep B, Adol or Pedi Dosage 2004-07-22 00:00:00 Completed [facility] MMR 2004-07-22 00:00:00 Completed [facility] Polio (IPV/OPV) 2004-07-22 00:00:00 Completed [facility] Varicella (varivax)(chicken pox) 2004-07-22 00:00:00 Completed [facility] DTaP, Unspecified Formulation 2004-07-22 00:00:00 Completed [facility] IPV 2004-07-22 00:00:00 Completed [facility] DTAP 2004-07-22 00:00:00 Completed [facility] Hep B, Adol or Pedi Dosage 2004-07-22 00:00:00 Completed [facility] MMR 2004-07-22 00:00:00 Completed [facility] Polio (IPV/OPV) 2004-07-22 00:00:00 Completed [facility] Varicella (varivax)(chicken pox) 2004-07-22 00:00:00 Completed [facility] DTaP, Unspecified Formulation 2004-07-22 00:00:00 Completed [facility] IPV 2004-07-22 00:00:00 Completed [facility] DTAP 2004-07-22 00:00:00 Completed [facility] Hep B, Adol or Pedi Dosage 2004-07-22 00:00:00 Completed [facility] MMR 2004-07-22 00:00:00 Completed [facility] Polio (IPV/OPV) 2004-07-22 00:00:00 Completed [facility] Varicella (varivax)(chicken pox) 2004-07-22 00:00:00 Completed [facility] DTaP, Unspecified Formulation 2004-07-22 00:00:00 Completed [facility] IPV 2004-07-22 00:00:00 Completed [facility] DTAP 2004-07-22 00:00:00 Completed Hep B, Adol or Pedi Dosage 2004-07-22 00:00:00 Completed MMR 2004-07-22 00:00:00 Completed Polio (IPV/OPV) 2004-07-22 00:00:00 Completed Varicella (varivax)(chicken pox) 2004-07-22 00:00:00 Completed DTaP, Unspecified Formulation 2004-07-22 00:00:00 Completed IPV 2004-07-22 00:00:00 Completed DTAP 2003-06-04 00:00:00 Completed [facility] HIB 3 Dose Schedule 2003-06-04 00:00:00 Completed [facility] Hep B, Adol or Pedi Dosage 2003-06-04 00:00:00 Completed [facility] MMR 2003-06-04 00:00:00 Completed [facility] Polio (IPV/OPV) 2003-06-04 00:00:00 Completed [facility] Varicella (varivax)(chicken pox) 2003-06-04 00:00:00 Completed [facility] DTAP 2003-06-04 00:00:00 Completed [facility] HIB 3 Dose Schedule 2003-06-04 00:00:00 Completed [facility] Hep B, Adol or Pedi Dosage 2003-06-04 00:00:00 Completed [facility] MMR 2003-06-04 00:00:00 Completed [facility] Polio (IPV/OPV) 2003-06-04 00:00:00 Completed [facility] Varicella (varivax)(chicken pox) 2003-06-04 00:00:00 Completed [facility] DTAP 2003-06-04 00:00:00 Completed [facility] HIB 3 Dose Schedule 2003-06-04 00:00:00 Completed [facility] Hep B, Adol or Pedi Dosage 2003-06-04 00:00:00 Completed [facility] MMR 2003-06-04 00:00:00 Completed [facility] Polio (IPV/OPV) 2003-06-04 00:00:00 Completed [facility] Varicella (varivax)(chicken pox) 2003-06-04 00:00:00 Completed [facility] DTAP 2003-06-04 00:00:00 Completed [facility] HIB 3 Dose Schedule 2003-06-04 00:00:00 Completed [facility] Hep B, Adol or Pedi Dosage 2003-06-04 00:00:00 Completed [facility] MMR 2003-06-04 00:00:00 Completed [facility] Polio (IPV/OPV) 2003-06-04 00:00:00 Completed [facility] Varicella (varivax)(chicken pox) 2003-06-04 00:00:00 Completed [facility] DTAP 2003-06-04 00:00:00 Completed [facility] HIB 3 Dose Schedule 2003-06-04 00:00:00 Completed [facility] Hep B, Adol or Pedi Dosage 2003-06-04 00:00:00 Completed [facility] MMR 2003-06-04 00:00:00 Completed [facility] Polio (IPV/OPV) 2003-06-04 00:00:00 Completed [facility] Varicella (varivax)(chicken pox) 2003-06-04 00:00:00 Completed [facility] DTAP 2003-06-04 00:00:00 Completed [facility] HIB 3 Dose Schedule 2003-06-04 00:00:00 Completed [facility] Hep B, Adol or Pedi Dosage 2003-06-04 00:00:00 Completed [facility] MMR 2003-06-04 00:00:00 Completed [facility] Polio (IPV/OPV) 2003-06-04 00:00:00 Completed [facility] Varicella (varivax)(chicken pox) 2003-06-04 00:00:00 Completed [facility] DTAP 2003-06-04 00:00:00 Completed [facility] HIB 3 Dose Schedule 2003-06-04 00:00:00 Completed [facility] Hep B, Adol or Pedi Dosage 2003-06-04 00:00:00 Completed [facility] MMR 2003-06-04 00:00:00 Completed [facility] Polio (IPV/OPV) 2003-06-04 00:00:00 Completed [facility] Varicella (varivax)(chicken pox) 2003-06-04 00:00:00 Completed [facility] DTAP 2003-06-04 00:00:00 Completed [facility] HIB 3 Dose Schedule 2003-06-04 00:00:00 Completed [facility] Hep B, Adol or Pedi Dosage 2003-06-04 00:00:00 Completed [facility] MMR 2003-06-04 00:00:00 Completed [facility] Polio (IPV/OPV) 2003-06-04 00:00:00 Completed [facility] Varicella (varivax)(chicken pox) 2003-06-04 00:00:00 Completed [facility] DTAP 2003-06-04 00:00:00 Completed [facility] HIB 3 Dose Schedule 2003-06-04 00:00:00 Completed [facility] Hep B, Adol or Pedi Dosage 2003-06-04 00:00:00 Completed [facility] MMR 2003-06-04 00:00:00 Completed [facility] Polio (IPV/OPV) 2003-06-04 00:00:00 Completed [facility] Varicella (varivax)(chicken pox) 2003-06-04 00:00:00 Completed [facility] DTAP 2003-06-04 00:00:00 Completed [facility] HIB 3 Dose Schedule 2003-06-04 00:00:00 Completed [facility] Hep B, Adol or Pedi Dosage 2003-06-04 00:00:00 Completed [facility] MMR 2003-06-04 00:00:00 Completed [facility] Polio (IPV/OPV) 2003-06-04 00:00:00 Completed [facility] Varicella (varivax)(chicken pox) 2003-06-04 00:00:00 Completed [facility] DTAP 2003-06-04 00:00:00 Completed [facility] HIB 3 Dose Schedule 2003-06-04 00:00:00 Completed [facility] Hep B, Adol or Pedi Dosage 2003-06-04 00:00:00 Completed [facility] MMR 2003-06-04 00:00:00 Completed [facility] Polio (IPV/OPV) 2003-06-04 00:00:00 Completed [facility] Varicella (varivax)(chicken pox) 2003-06-04 00:00:00 Completed [facility] DTAP 2003-06-04 00:00:00 Completed [facility] HIB 3 Dose Schedule 2003-06-04 00:00:00 Completed [facility] Hep B, Adol or Pedi Dosage 2003-06-04 00:00:00 Completed [facility] MMR 2003-06-04 00:00:00 Completed [facility] Polio (IPV/OPV) 2003-06-04 00:00:00 Completed [facility] Varicella (varivax)(chicken pox) 2003-06-04 00:00:00 Completed [facility] DTAP 2003-06-04 00:00:00 Completed [facility] HIB 3 Dose Schedule 2003-06-04 00:00:00 Completed [facility] Hep B, Adol or Pedi Dosage 2003-06-04 00:00:00 Completed [facility] MMR 2003-06-04 00:00:00 Completed [facility] Polio (IPV/OPV) 2003-06-04 00:00:00 Completed [facility] Varicella (varivax)(chicken pox) 2003-06-04 00:00:00 Completed [facility] DTAP 2003-06-04 00:00:00 Completed [facility] HIB 3 Dose Schedule 2003-06-04 00:00:00 Completed [facility] Hep B, Adol or Pedi Dosage 2003-06-04 00:00:00 Completed [facility] MMR 2003-06-04 00:00:00 Completed [facility] Polio (IPV/OPV) 2003-06-04 00:00:00 Completed [facility] Varicella (varivax)(chicken pox) 2003-06-04 00:00:00 Completed [facility] DTAP 2003-06-04 00:00:00 Completed [facility] HIB 3 Dose Schedule 2003-06-04 00:00:00 Completed [facility] Hep B, Adol or Pedi Dosage 2003-06-04 00:00:00 Completed [facility] MMR 2003-06-04 00:00:00 Completed [facility] Polio (IPV/OPV) 2003-06-04 00:00:00 Completed [facility] Varicella (varivax)(chicken pox) 2003-06-04 00:00:00 Completed [facility] DTAP 2003-06-04 00:00:00 Completed [facility] HIB 3 Dose Schedule 2003-06-04 00:00:00 Completed [facility] Hep B, Adol or Pedi Dosage 2003-06-04 00:00:00 Completed [facility] MMR 2003-06-04 00:00:00 Completed [facility] Polio (IPV/OPV) 2003-06-04 00:00:00 Completed [facility] Varicella (varivax)(chicken pox) 2003-06-04 00:00:00 Completed [facility] DTAP 2003-06-04 00:00:00 Completed [facility] HIB 3 Dose Schedule 2003-06-04 00:00:00 Completed [facility] Hep B, Adol or Pedi Dosage 2003-06-04 00:00:00 Completed [facility] MMR 2003-06-04 00:00:00 Completed [facility] Polio (IPV/OPV) 2003-06-04 00:00:00 Completed [facility] Varicella (varivax)(chicken pox) 2003-06-04 00:00:00 Completed [facility] DTAP 2003-06-04 00:00:00 Completed [facility] HIB 3 Dose Schedule 2003-06-04 00:00:00 Completed [facility] Hep B, Adol or Pedi Dosage 2003-06-04 00:00:00 Completed [facility] MMR 2003-06-04 00:00:00 Completed [facility] Polio (IPV/OPV) 2003-06-04 00:00:00 Completed [facility] Varicella (varivax)(chicken pox) 2003-06-04 00:00:00 Completed [facility] DTAP 2003-06-04 00:00:00 Completed [facility] HIB 3 Dose Schedule 2003-06-04 00:00:00 Completed [facility] Hep B, Adol or Pedi Dosage 2003-06-04 00:00:00 Completed [facility] MMR 2003-06-04 00:00:00 Completed [facility] Polio (IPV/OPV) 2003-06-04 00:00:00 Completed [facility] Varicella (varivax)(chicken pox) 2003-06-04 00:00:00 Completed [facility] DTAP 2003-06-04 00:00:00 Completed [facility] HIB 3 Dose Schedule 2003-06-04 00:00:00 Completed [facility] Hep B, Adol or Pedi Dosage 2003-06-04 00:00:00 Completed [facility] MMR 2003-06-04 00:00:00 Completed [facility] Polio (IPV/OPV) 2003-06-04 00:00:00 Completed [facility] Varicella (varivax)(chicken pox) 2003-06-04 00:00:00 Completed [facility] DTAP 2003-06-04 00:00:00 Completed [facility] HIB 3 Dose Schedule 2003-06-04 00:00:00 Completed [facility] Hep B, Adol or Pedi Dosage 2003-06-04 00:00:00 Completed [facility] MMR 2003-06-04 00:00:00 Completed [facility] Polio (IPV/OPV) 2003-06-04 00:00:00 Completed [facility] Varicella (varivax)(chicken pox) 2003-06-04 00:00:00 Completed [facility] DTAP 2003-06-04 00:00:00 Completed [facility] HIB 3 Dose Schedule 2003-06-04 00:00:00 Completed [facility] Hep B, Adol or Pedi Dosage 2003-06-04 00:00:00 Completed [facility] MMR 2003-06-04 00:00:00 Completed [facility] Polio (IPV/OPV) 2003-06-04 00:00:00 Completed [facility] Varicella (varivax)(chicken pox) 2003-06-04 00:00:00 Completed [facility] DTAP 2003-06-04 00:00:00 Completed [facility] HIB 3 Dose Schedule 2003-06-04 00:00:00 Completed [facility] Hep B, Adol or Pedi Dosage 2003-06-04 00:00:00 Completed [facility] MMR 2003-06-04 00:00:00 Completed [facility] Polio (IPV/OPV) 2003-06-04 00:00:00 Completed [facility] Varicella (varivax)(chicken pox) 2003-06-04 00:00:00 Completed [facility] DTAP 2003-06-04 00:00:00 Completed [facility] HIB 3 Dose Schedule 2003-06-04 00:00:00 Completed [facility] Hep B, Adol or Pedi Dosage 2003-06-04 00:00:00 Completed [facility] MMR 2003-06-04 00:00:00 Completed [facility] Polio (IPV/OPV) 2003-06-04 00:00:00 Completed [facility] Varicella (varivax)(chicken pox) 2003-06-04 00:00:00 Completed [facility] DTAP 2003-06-04 00:00:00 Completed [facility] HIB 3 Dose Schedule 2003-06-04 00:00:00 Completed [facility] Hep B, Adol or Pedi Dosage 2003-06-04 00:00:00 Completed [facility] MMR 2003-06-04 00:00:00 Completed [facility] Polio (IPV/OPV) 2003-06-04 00:00:00 Completed [facility] Varicella (varivax)(chicken pox) 2003-06-04 00:00:00 Completed [facility] DTAP 2003-06-04 00:00:00 Completed [facility] HIB 3 Dose Schedule 2003-06-04 00:00:00 Completed [facility] Hep B, Adol or Pedi Dosage 2003-06-04 00:00:00 Completed [facility] MMR 2003-06-04 00:00:00 Completed [facility] Polio (IPV/OPV) 2003-06-04 00:00:00 Completed [facility] Varicella (varivax)(chicken pox) 2003-06-04 00:00:00 Completed [facility] DTAP 2003-06-04 00:00:00 Completed [facility] HIB 3 Dose Schedule 2003-06-04 00:00:00 Completed [facility] Hep B, Adol or Pedi Dosage 2003-06-04 00:00:00 Completed [facility] MMR 2003-06-04 00:00:00 Completed [facility] Polio (IPV/OPV) 2003-06-04 00:00:00 Completed [facility] Varicella (varivax)(chicken pox) 2003-06-04 00:00:00 Completed [facility] DTAP 2003-06-04 00:00:00 Completed [facility] HIB 3 Dose Schedule 2003-06-04 00:00:00 Completed [facility] Hep B, Adol or Pedi Dosage 2003-06-04 00:00:00 Completed [facility] MMR 2003-06-04 00:00:00 Completed [facility] Polio (IPV/OPV) 2003-06-04 00:00:00 Completed [facility] Varicella (varivax)(chicken pox) 2003-06-04 00:00:00 Completed [facility] DTAP 2003-06-04 00:00:00 Completed [facility] HIB 3 Dose Schedule 2003-06-04 00:00:00 Completed [facility] Hep B, Adol or Pedi Dosage 2003-06-04 00:00:00 Completed [facility] MMR 2003-06-04 00:00:00 Completed [facility] Polio (IPV/OPV) 2003-06-04 00:00:00 Completed [facility] Varicella (varivax)(chicken pox) 2003-06-04 00:00:00 Completed [facility] DTAP 2003-06-04 00:00:00 Completed [facility] HIB 3 Dose Schedule 2003-06-04 00:00:00 Completed [facility] Hep B, Adol or Pedi Dosage 2003-06-04 00:00:00 Completed [facility] MMR 2003-06-04 00:00:00 Completed [facility] Polio (IPV/OPV) 2003-06-04 00:00:00 Completed [facility] Varicella (varivax)(chicken pox) 2003-06-04 00:00:00 Completed [facility] DTaP, Unspecified Formulation 2003-06-04 00:00:00 Completed [facility] HIB 4 Dose Schedule 2003-06-04 00:00:00 Completed [facility] IPV 2003-06-04 00:00:00 Completed [facility] DTAP 2003-06-04 00:00:00 Completed [facility] HIB 3 Dose Schedule 2003-06-04 00:00:00 Completed [facility] Hep B, Adol or Pedi Dosage 2003-06-04 00:00:00 Completed [facility] MMR 2003-06-04 00:00:00 Completed [facility] Polio (IPV/OPV) 2003-06-04 00:00:00 Completed [facility] Varicella (varivax)(chicken pox) 2003-06-04 00:00:00 Completed [facility] DTaP, Unspecified Formulation 2003-06-04 00:00:00 Completed [facility] HIB 4 Dose Schedule 2003-06-04 00:00:00 Completed [facility] IPV 2003-06-04 00:00:00 Completed [facility] DTAP 2003-06-04 00:00:00 Completed [facility] HIB 3 Dose Schedule 2003-06-04 00:00:00 Completed [facility] Hep B, Adol or Pedi Dosage 2003-06-04 00:00:00 Completed [facility] MMR 2003-06-04 00:00:00 Completed [facility] Polio (IPV/OPV) 2003-06-04 00:00:00 Completed [facility] Varicella (varivax)(chicken pox) 2003-06-04 00:00:00 Completed [facility] DTaP, Unspecified Formulation 2003-06-04 00:00:00 Completed [facility] HIB 4 Dose Schedule 2003-06-04 00:00:00 Completed [facility] IPV 2003-06-04 00:00:00 Completed [facility] DTAP 2003-06-04 00:00:00 Completed [facility] HIB 3 Dose Schedule 2003-06-04 00:00:00 Completed [facility] Hep B, Adol or Pedi Dosage 2003-06-04 00:00:00 Completed [facility] MMR 2003-06-04 00:00:00 Completed [facility] Polio (IPV/OPV) 2003-06-04 00:00:00 Completed [facility] Varicella (varivax)(chicken pox) 2003-06-04 00:00:00 Completed [facility] DTaP, Unspecified Formulation 2003-06-04 00:00:00 Completed [facility] HIB 4 Dose Schedule 2003-06-04 00:00:00 Completed [facility] IPV 2003-06-04 00:00:00 Completed [facility] DTAP 2003-06-04 00:00:00 Completed [facility] HIB 3 Dose Schedule 2003-06-04 00:00:00 Completed [facility] Hep B, Adol or Pedi Dosage 2003-06-04 00:00:00 Completed [facility] MMR 2003-06-04 00:00:00 Completed [facility] Polio (IPV/OPV) 2003-06-04 00:00:00 Completed [facility] Varicella (varivax)(chicken pox) 2003-06-04 00:00:00 Completed [facility] DTaP, Unspecified Formulation 2003-06-04 00:00:00 Completed [facility] HIB 4 Dose Schedule 2003-06-04 00:00:00 Completed [facility] IPV 2003-06-04 00:00:00 Completed [facility] DTAP 2003-06-04 00:00:00 Completed [facility] HIB 3 Dose Schedule 2003-06-04 00:00:00 Completed [facility] Hep B, Adol or Pedi Dosage 2003-06-04 00:00:00 Completed [facility] MMR 2003-06-04 00:00:00 Completed [facility] Polio (IPV/OPV) 2003-06-04 00:00:00 Completed [facility] Varicella (varivax)(chicken pox) 2003-06-04 00:00:00 Completed [facility] DTaP, Unspecified Formulation 2003-06-04 00:00:00 Completed [facility] HIB 4 Dose Schedule 2003-06-04 00:00:00 Completed [facility] IPV 2003-06-04 00:00:00 Completed [facility] DTAP 2003-06-04 00:00:00 Completed [facility] HIB 3 Dose Schedule 2003-06-04 00:00:00 Completed [facility] Hep B, Adol or Pedi Dosage 2003-06-04 00:00:00 Completed [facility] MMR 2003-06-04 00:00:00 Completed [facility] Polio (IPV/OPV) 2003-06-04 00:00:00 Completed [facility] Varicella (varivax)(chicken pox) 2003-06-04 00:00:00 Completed [facility] DTaP, Unspecified Formulation 2003-06-04 00:00:00 Completed [facility] HIB 4 Dose Schedule 2003-06-04 00:00:00 Completed [facility] IPV 2003-06-04 00:00:00 Completed [facility] DTAP 2003-06-04 00:00:00 Completed [facility] HIB 3 Dose Schedule 2003-06-04 00:00:00 Completed [facility] Hep B, Adol or Pedi Dosage 2003-06-04 00:00:00 Completed [facility] MMR 2003-06-04 00:00:00 Completed [facility] Polio (IPV/OPV) 2003-06-04 00:00:00 Completed [facility] Varicella (varivax)(chicken pox) 2003-06-04 00:00:00 Completed [facility] DTaP, Unspecified Formulation 2003-06-04 00:00:00 Completed [facility] HIB 4 Dose Schedule 2003-06-04 00:00:00 Completed [facility] IPV 2003-06-04 00:00:00 Completed [facility] DTAP 2003-06-04 00:00:00 Completed [facility] HIB 3 Dose Schedule 2003-06-04 00:00:00 Completed [facility] Hep B, Adol or Pedi Dosage 2003-06-04 00:00:00 Completed [facility] MMR 2003-06-04 00:00:00 Completed [facility] Polio (IPV/OPV) 2003-06-04 00:00:00 Completed [facility] Varicella (varivax)(chicken pox) 2003-06-04 00:00:00 Completed [facility] DTaP, Unspecified Formulation 2003-06-04 00:00:00 Completed [facility] HIB 4 Dose Schedule 2003-06-04 00:00:00 Completed [facility] IPV 2003-06-04 00:00:00 [facility] [facility] 2003-06-04 00:00:00 Completed [facility] HIB 3 Dose Schedule 2003-06-04 00:00:00 Completed [facility] Hep B, Adol or Pedi Dosage 2003-06-04 00:00:00 Completed [facility] MMR 2003-06-04 00:00:00 Completed [facility] Polio (IPV/OPV) 2003-06-04 00:00:00 Completed [facility] Varicella (varivax)(chicken pox) 2003-06-04 00:00:00 Completed [facility] DTaP, Unspecified Formulation 2003-06-04 00:00:00 Completed [facility] HIB 4 Dose Schedule 2003-06-04 00:00:00 Completed [facility] IPV 2003-06-04 00:00:00 Completed [facility] DTAP 2003-06-04 00:00:00 Completed [facility] HIB 3 Dose Schedule 2003-06-04 00:00:00 Completed [facility] Hep B, Adol or Pedi Dosage 2003-06-04 00:00:00 Completed [facility] MMR 2003-06-04 00:00:00 Completed [facility] Polio (IPV/OPV) 2003-06-04 00:00:00 Completed [facility] Varicella (varivax)(chicken pox) 2003-06-04 00:00:00 Completed [facility] DTaP, Unspecified Formulation 2003-06-04 00:00:00 Completed [facility] HIB 4 Dose Schedule 2003-06-04 00:00:00 Completed [facility] IPV 2003-06-04 00:00:00 Completed [facility] DTAP 2003-06-04 00:00:00 Completed [facility] HIB 3 Dose Schedule 2003-06-04 00:00:00 Completed [facility] Hep B, Adol or Pedi Dosage 2003-06-04 00:00:00 Completed [facility] MMR 2003-06-04 00:00:00 Completed [facility] Polio (IPV/OPV) 2003-06-04 00:00:00 Completed [facility] Varicella (varivax)(chicken pox) 2003-06-04 00:00:00 Completed [facility] DTaP, Unspecified Formulation 2003-06-04 00:00:00 Completed [facility] HIB 4 Dose Schedule 2003-06-04 00:00:00 Completed [facility] IPV 2003-06-04 00:00:00 Completed [facility] DTAP 2003-06-04 00:00:00 Completed [facility] HIB 3 Dose Schedule 2003-06-04 00:00:00 Completed [facility] Hep B, Adol or Pedi Dosage 2003-06-04 00:00:00 Completed [facility] MMR 2003-06-04 00:00:00 Completed [facility] Polio (IPV/OPV) 2003-06-04 00:00:00 Completed [facility] Varicella (varivax)(chicken pox) 2003-06-04 00:00:00 Completed [facility] DTaP, Unspecified Formulation 2003-06-04 00:00:00 Completed [facility] HIB 4 Dose Schedule 2003-06-04 00:00:00 Completed [facility] IPV 2003-06-04 00:00:00 Completed [facility] DTAP 2003-06-04 00:00:00 Completed [facility] HIB 3 Dose Schedule 2003-06-04 00:00:00 Completed [facility] Hep B, Adol or Pedi Dosage 2003-06-04 00:00:00 Completed [facility] MMR 2003-06-04 00:00:00 Completed [facility] Polio (IPV/OPV) 2003-06-04 00:00:00 Completed [facility] Varicella (varivax)(chicken pox) 2003-06-04 00:00:00 Completed [facility] DTaP, Unspecified Formulation 2003-06-04 00:00:00 Completed [facility] HIB 4 Dose Schedule 2003-06-04 00:00:00 Completed [facility] IPV 2003-06-04 00:00:00 Completed [facility] DTAP 2003-06-04 00:00:00 Completed [facility] HIB 3 Dose Schedule 2003-06-04 00:00:00 Completed [facility] Hep B, Adol or Pedi Dosage 2003-06-04 00:00:00 Completed [facility] MMR 2003-06-04 00:00:00 Completed [facility] Polio (IPV/OPV) 2003-06-04 00:00:00 Completed [facility] Varicella (varivax)(chicken pox) 2003-06-04 00:00:00 Completed [facility] DTaP, Unspecified Formulation 2003-06-04 00:00:00 Completed [facility] HIB 4 Dose Schedule 2003-06-04 00:00:00 Completed [facility] IPV 2003-06-04 00:00:00 Completed [facility] DTAP 2003-06-04 00:00:00 Completed [facility] HIB 3 Dose Schedule 2003-06-04 00:00:00 Completed [facility] Hep B, Adol or Pedi Dosage 2003-06-04 00:00:00 Completed [facility] MMR 2003-06-04 00:00:00 Completed [facility] Polio (IPV/OPV) 2003-06-04 00:00:00 Completed [facility] Varicella (varivax)(chicken pox) 2003-06-04 00:00:00 Completed [facility] DTaP, Unspecified Formulation 2003-06-04 00:00:00 Completed [facility] HIB 4 Dose Schedule 2003-06-04 00:00:00 Completed [facility] IPV 2003-06-04 00:00:00 Completed [facility] DTAP 2003-06-04 00:00:00 Completed [facility] HIB 3 Dose Schedule 2003-06-04 00:00:00 Completed [facility] Hep B, Adol or Pedi Dosage 2003-06-04 00:00:00 Completed [facility] MMR 2003-06-04 00:00:00 Completed [facility] Polio (IPV/OPV) 2003-06-04 00:00:00 Completed [facility] Varicella (varivax)(chicken pox) 2003-06-04 00:00:00 Completed [facility] DTaP, Unspecified Formulation 2003-06-04 00:00:00 Completed [facility] HIB 4 Dose Schedule 2003-06-04 00:00:00 Completed [facility] IPV 2003-06-04 00:00:00 Completed [facility] DTAP 2003-06-04 00:00:00 Completed [facility] HIB 3 Dose Schedule 2003-06-04 00:00:00 Completed [facility] Hep B, Adol or Pedi Dosage 2003-06-04 00:00:00 Completed [facility] MMR 2003-06-04 00:00:00 Completed [facility] Polio (IPV/OPV) 2003-06-04 00:00:00 Completed [facility] Varicella (varivax)(chicken pox) 2003-06-04 00:00:00 Completed [facility] DTaP, Unspecified Formulation 2003-06-04 00:00:00 Completed [facility] HIB 4 Dose Schedule 2003-06-04 00:00:00 Completed [facility] IPV 2003-06-04 00:00:00 Completed [facility] DTAP 2003-06-04 00:00:00 Completed [facility] HIB 3 Dose Schedule 2003-06-04 00:00:00 Completed [facility] Hep B, Adol or Pedi Dosage 2003-06-04 00:00:00 Completed [facility] MMR 2003-06-04 00:00:00 Completed [facility] Polio (IPV/OPV) 2003-06-04 00:00:00 Completed [facility] Varicella (varivax)(chicken pox) 2003-06-04 00:00:00 Completed [facility] DTaP, Unspecified Formulation 2003-06-04 00:00:00 Completed [facility] HIB 4 Dose Schedule 2003-06-04 00:00:00 Completed [facility] IPV 2003-06-04 00:00:00 Completed [facility] DTAP 2003-06-04 00:00:00 Completed [facility] HIB 3 Dose Schedule 2003-06-04 00:00:00 Completed [facility] Hep B, Adol or Pedi Dosage 2003-06-04 00:00:00 Completed [facility] MMR 2003-06-04 00:00:00 Completed [facility] Polio (IPV/OPV) 2003-06-04 00:00:00 Completed [facility] Varicella (varivax)(chicken pox) 2003-06-04 00:00:00 Completed [facility] DTaP, Unspecified Formulation 2003-06-04 00:00:00 Completed [facility] HIB 4 Dose Schedule 2003-06-04 00:00:00 Completed [facility] IPV 2003-06-04 00:00:00 Completed [facility] DTAP 2003-06-04 00:00:00 Completed [facility] HIB 3 Dose Schedule 2003-06-04 00:00:00 Completed [facility] Hep B, Adol or Pedi Dosage 2003-06-04 00:00:00 Completed [facility] MMR 2003-06-04 00:00:00 Completed [facility] Polio (IPV/OPV) 2003-06-04 00:00:00 Completed [facility] Varicella (varivax)(chicken pox) 2003-06-04 00:00:00 Completed [facility] DTaP, Unspecified Formulation 2003-06-04 00:00:00 Completed [facility] HIB 4 Dose Schedule 2003-06-04 00:00:00 Completed [facility] IPV 2003-06-04 00:00:00 Completed [facility] DTAP 2003-06-04 00:00:00 Completed [facility] HIB 3 Dose Schedule 2003-06-04 00:00:00 Completed [facility] Hep B, Adol or Pedi Dosage 2003-06-04 00:00:00 Completed [facility] MMR 2003-06-04 00:00:00 Completed [facility] Polio (IPV/OPV) 2003-06-04 00:00:00 Completed [facility] Varicella (varivax)(chicken pox) 2003-06-04 00:00:00 Completed [facility] DTaP, Unspecified Formulation 2003-06-04 00:00:00 Completed [facility] HIB 4 Dose Schedule 2003-06-04 00:00:00 Completed [facility] IPV 2003-06-04 00:00:00 Completed [facility] DTAP 2003-06-04 00:00:00 Completed [facility] HIB 3 Dose Schedule 2003-06-04 00:00:00 Completed Hep B, Adol or Pedi Dosage 2003-06-04 00:00:00 Completed MMR 2003-06-04 00:00:00 Completed Polio (IPV/OPV) 2003-06-04 00:00:00 Completed Varicella (varivax)(chicken pox) 2003-06-04 00:00:00 Completed DTaP, Unspecified Formulation 2003-06-04 00:00:00 Completed HIB 4 Dose Schedule 2003-06-04 00:00:00 Completed IPV 2003-06-04 00:00:00 Completed DTAP Unknown Completed [facility] HIB 3 Dose Schedule Unknown Completed [facility] Hepatitis A Adult Unknown Completed Un [facility] Hep B, Adol or Pedi Dosage Unknown Completed [facility] Meningococcal Vaccine Unknown Completed [facility] MMR Unknown Completed [facility] Pneumococcal 13 Conjugate, PCV13 (Prevnar 13) Unknown Completed [facility] Polio (IPV/OPV) Unknown Completed [facility] TDAP Unknown Completed [facility] Varicella (varivax)(chicken pox) Unknown Completed [facility] Meningococcal B, OMV Unknown Completed [facility] Influenza Virus Vaccine Quad .5 mL IM 6+ MO (FLUZONE/FLULAVAL/FL UARIX) Unknown Completed [facility] DTaP, Unspecified Formulation Unknown Completed [facility] HEPA,NOS Unknown Completed [facility] HEPATITIS A Unknown Completed [facility] HIB 4 Dose Schedule Unknown Completed [facility] Meningococcal Polysaccharide (groups A, C, Y and W-135) conjugate vaccine (MCV4P) Unknown Completed [facility] Pneumococcal 7 Conjugate, PCV7 (Prevnar7) Unknown Completed [facility] IPV Unknown Completed [facility] DTAP Unknown Completed [facility] HIB 3 Dose Schedule Unknown Completed [facility] Hepatitis A Adult [facility], Adol or Pedi Dosage Unknown Completed [facility] Meningococcal Vaccine Unknown Completed [facility] MMR Unknown Completed [facility] Pneumococcal 13 Conjugate, PCV13 (Prevnar 13) Unknown Completed [facility] Polio (IPV/OPV) Unknown Completed [facility] TDAP Unknown Completed [facility] Varicella (varivax)(chicken pox) Unknown Completed [facility] Meningococcal B, OMV Unknown Completed [facility] Influenza Virus Vaccine Quad .5 mL IM 6+ MO (FLUZONE/FLULAVAL/FL UARIX) Unknown Completed [facility] DTaP, Unspecified Formulation Unknown Completed [facility] HEPA,NOS Unknown Completed [facility] HEPATITIS A Unknown Completed [facility] HIB 4 Dose Schedule Unknown Completed [facility] Meningococcal Polysaccharide (groups A, C, Y and W-135) conjugate vaccine (MCV4P) Unknown Completed [facility] Pneumococcal 7 Conjugate, PCV7 (Prevnar7) Unknown Completed [facility] IPV Unknown Completed [facility] DTAP Unknown Completed [facility] HIB 3 Dose Schedule Unknown Completed [facility] Hepatitis A Adult Unknown [facility] B, Adol or Pedi Dosage Unknown Completed [facility] Meningococcal Vaccine Unknown Completed [facility] MMR Unknown Completed [facility] Pneumococcal 13 Conjugate, PCV13 (Prevnar 13) Unknown Completed [facility] Polio (IPV/OPV) Unknown Completed [facility] TDAP Unknown Completed [facility] Varicella (varivax)(chicken pox) Unknown Completed [facility] Meningococcal B, OMV Unknown Completed [facility] Influenza Virus Vaccine Quad .5 mL IM 6+ MO (FLUZONE/FLULAVAL/FL UARIX) Unknown Completed [facility] DTaP, Unspecified Formulation Unknown Completed [facility] HEPA,NOS Unknown Completed [facility] HEPATITIS A Unknown Completed [facility] HIB 4 Dose Schedule Unknown Completed [facility] Meningococcal Polysaccharide (groups A, C, Y and W-135) conjugate vaccine (MCV4P) Unknown Completed [facility] Pneumococcal 7 Conjugate, PCV7 (Prevnar7) Unknown Completed [facility] IPV Unknown Completed [facility] DTAP Unknown Completed [facility] HIB 3 Dose Schedule Unknown Completed [facility] Hepatitis A Adult Unknown [facility] B, Adol or Pedi Dosage Unknown Completed [facility] Meningococcal Vaccine Unknown Completed [facility] MMR Unknown Completed [facility] Pneumococcal 13 Conjugate, PCV13 (Prevnar 13) Unknown Completed [facility] Polio (IPV/OPV) Unknown Completed [facility] TDAP Unknown Completed [facility] Varicella (varivax)(chicken pox) Unknown Completed [facility] Meningococcal B, OMV Unknown Completed [facility] Influenza Virus Vaccine Quad .5 mL IM 6+ MO (FLUZONE/FLULAVAL/FL UARIX) Unknown Completed [facility] DTaP, Unspecified Formulation Unknown Completed [facility] HEPA,NOS Unknown Completed [facility] HEPATITIS A Unknown Completed [facility] HIB 4 Dose Schedule Unknown Completed [facility] Meningococcal Polysaccharide (groups A, C, Y and W-135) conjugate vaccine (MCV4P) Unknown Completed [facility] Pneumococcal 7 Conjugate, PCV7 (Prevnar7) Unknown Completed [facility] IPV Unknown Completed [facility] DTAP Unknown Completed [facility] HIB 3 Dose Schedule Unknown Completed [facility] Hepatitis A Adult Unknown [facility] Hep B, Adol or Pedi Dosage Unknown Completed [facility] Meningococcal Vaccine Unknown Completed [facility] MMR Unknown Completed [facility] Pneumococcal 13 Conjugate, PCV13 (Prevnar 13) Unknown Completed [facility] Polio (IPV/OPV) Unknown Completed [facility] TDAP Unknown Completed [facility] Varicella (varivax)(chicken pox) Unknown Completed [facility] Meningococcal B, OMV Unknown Completed [facility] Influenza Virus Vaccine Quad .5 mL IM 6+ MO (FLUZONE/FLULAVAL/FL UARIX) Unknown Completed [facility] DTaP, Unspecified Formulation Unknown Completed [facility] HEPA,NOS Unknown Completed [facility] HEPATITIS A Unknown Completed [facility] HIB 4 Dose Schedule Unknown Completed [facility] Meningococcal Polysaccharide (groups A, C, Y and W-135) conjugate vaccine (MCV4P) Unknown Completed [facility] Pneumococcal 7 Conjugate, PCV7 (Prevnar7) Unknown Completed [facility] IPV Unknown Completed [facility] DTAP Unknown Completed [facility] HIB 3 Dose Schedule Unknown Completed [facility] Hepatitis A Adult Unknown [facility] Hep B, Adol or Pedi Dosage Unknown Completed [facility] Meningococcal Vaccine Unknown Completed [facility] MMR Unknown Completed [facility] Pneumococcal 13 Conjugate, PCV13 (Prevnar 13) Unknown Completed [facility] Polio (IPV/OPV) Unknown Completed [facility] TDAP Unknown Completed [facility] Varicella (varivax)(chicken pox) Unknown Completed [facility] Meningococcal B, OMV Unknown Completed [facility] Influenza Virus Vaccine Quad .5 mL IM 6+ MO (FLUZONE/FLULAVAL/FL UARIX) Unknown Completed [facility] DTaP, Unspecified Formulation Unknown Completed [facility] HEPA,NOS Unknown Completed [facility] HEPATITIS A Unknown Completed [facility] HIB 4 Dose Schedule Unknown Completed [facility] Meningococcal Polysaccharide (groups A, C, Y and W-135) conjugate vaccine (MCV4P) Unknown Completed [facility] Pneumococcal 7 Conjugate, PCV7 (Prevnar7) Unknown Completed [facility] IPV Unknown Completed [facility] Meningococcal Vaccine Unknown Completed [facility] Pneumococcal 13 Conjugate, PCV13 (Prevnar 13) Unknown Completed [facility] Meningococcal B, OMV Unknown Completed [facility] Influenza Virus Vaccine Quad .5 mL IM 6+ MO (FLUZONE/FLULAVAL/FL UARIX) Unknown Completed [facility] HEPA,NOS Unknown Completed [facility] HEPATITIS A Unknown Completed [facility] Meningococcal Polysaccharide (groups A, C, Y and W-135) conjugate vaccine (MCV4P) Unknown Completed [facility] Pneumococcal 7 Conjugate, PCV7 (Prevnar7) Unknown Completed [facility] DTAP Unknown Completed [facility] HIB 3 Dose Schedule Unknown Completed [facility] Hepatitis A Adult Unknown Completed [facility] Hep B, Adol or Pedi Dosage Unknown Completed [facility] MMR Unknown Completed [facility] Polio (IPV/OPV) Unknown Completed [facility] TDAP Unknown Completed [facility] Varicella (varivax)(chicken pox) Unknown Completed [facility] DTaP, Unspecified Formulation Unknown Completed [facility] HIB 4 Dose Schedule Unknown Completed [facility] IPV Unknown Completed [facility] Meningococcal Vaccine Unknown Completed [facility] Pneumococcal 13 Conjugate, PCV13 (Prevnar 13) Unknown Completed [facility] Meningococcal B, OMV Unknown Completed [facility] Influenza Virus Vaccine Quad .5 mL IM 6+ MO (FLUZONE/FLULAVAL/FL UARIX) Unknown Completed [facility] HEPA,NOS Unknown Completed [facility] HEPATITIS A Unknown Completed [facility] Meningococcal Polysaccharide (groups A, C, Y and W-135) conjugate vaccine (MCV4P) Unknown Completed [facility] Pneumococcal 7 Conjugate, PCV7 (Prevnar7) Unknown Completed [facility] DTAP Unknown Completed [facility] HIB 3 Dose Schedule Unknown Completed [facility] Hepatitis A Adult Unknown [facility] Hep B, Adol or Pedi Dosage Unknown Completed [facility] MMR Unknown Completed [facility] Polio (IPV/OPV) Unknown Completed [facility] TDAP Unknown Completed [facility] Varicella (varivax)(chicken pox) Unknown Completed [facility] DTaP, Unspecified Formulation Unknown Completed [facility] HIB 4 Dose Schedule Unknown Completed [facility] IPV Unknown Completed [facility] DTAP Unknown Completed [facility] HIB 3 Dose Schedule Unknown Completed [facility] Hepatitis A Adult Unknown [facility] Hep B, Adol or Pedi Dosage Unknown Completed [facility] Meningococcal Vaccine Unknown Completed [facility] MMR Unknown Completed [facility] Pneumococcal 13 Conjugate, PCV13 (Prevnar 13) Unknown Completed [facility] Polio (IPV/OPV) Unknown Completed [facility] TDAP Unknown Completed [facility] Varicella (varivax)(chicken pox) Unknown Completed [facility] Meningococcal B, OMV Unknown Completed [facility] Influenza Virus Vaccine Quad .5 mL IM 6+ MO (FLUZONE/FLULAVAL/FL UARIX) Unknown Completed [facility] DTaP, Unspecified Formulation Unknown Completed [facility] HEPA,NOS Unknown Completed [facility] HEPATITIS A Unknown Completed [facility] HIB 4 Dose Schedule Unknown Completed [facility] Meningococcal Polysaccharide (groups A, C, Y and W-135) conjugate vaccine (MCV4P) Unknown Completed [facility] Pneumococcal 7 Conjugate, PCV7 (Prevnar7) Unknown Completed [facility] IPV Unknown Completed [facility] DTAP Unknown Completed [facility] HIB 3 Dose Schedule Unknown Completed [facility] Hepatitis A Adult Unknown [facility] Hep B, Adol or Pedi Dosage Unknown Completed [facility] Meningococcal Vaccine Unknown Completed [facility] MMR Unknown Completed [facility] Pneumococcal 13 Conjugate, PCV13 (Prevnar 13) Unknown Completed [facility] Polio (IPV/OPV) Unknown Completed [facility] TDAP Unknown Completed [facility] Varicella (varivax)(chicken pox) Unknown Completed [facility] Meningococcal B, OMV Unknown Completed [facility] Influenza Virus Vaccine Quad .5 mL IM 6+ MO (FLUZONE/FLULAVAL/FL UARIX) Unknown Completed [facility] DTaP, Unspecified Formulation Unknown Completed [facility] HEPA,NOS Unknown Completed [facility] HEPATITIS A Unknown Completed [facility] HIB 4 Dose Schedule Unknown Completed [facility] Meningococcal Polysaccharide (groups A, C, Y and W-135) conjugate vaccine (MCV4P) Unknown Completed [facility] Pneumococcal 7 Conjugate, PCV7 (Prevnar7) Unknown Completed [facility] IPV Unknown Completed [facility] DTAP Unknown Completed [facility] HIB 3 Dose Schedule Unknown Completed [facility] Hepatitis A Adult Unknown [facility] Hep B, Adol or Pedi Dosage Unknown Completed [facility] Meningococcal Vaccine Unknown Completed [facility] MMR Unknown Completed [facility] Pneumococcal 13 Conjugate, PCV13 (Prevnar 13) Unknown Completed [facility] Polio (IPV/OPV) Unknown Completed [facility] TDAP Unknown Completed [facility] Varicella (varivax)(chicken pox) Unknown Completed [facility] Meningococcal B, OMV Unknown Completed [facility] Influenza Virus Vaccine Quad .5 mL IM 6+ MO (FLUZONE/FLULAVAL/FL UARIX) Unknown Completed [facility] DTaP, Unspecified Formulation Unknown Completed [facility] HEPA,NOS Unknown Completed [facility] [facility] Unknown Completed [facility] HIB 4 Dose Schedule Unknown Completed [facility] Meningococcal Polysaccharide (groups A, C, Y and W-135) conjugate vaccine (MCV4P) Unknown Completed [facility] Pneumococcal 7 Conjugate, PCV7 (Prevnar7) Unknown Completed [facility] IPV Unknown Completed [facility] DTAP Unknown Completed [facility] HIB 3 Dose Schedule Unknown Completed [facility] Hepatitis A Adult Unknown [facility] B, Adol or Pedi Dosage Unknown Completed [facility] Meningococcal Vaccine Unknown Completed [facility] MMR Unknown Completed [facility] Pneumococcal 13 Conjugate, PCV13 (Prevnar 13) Unknown Completed [facility] Polio (IPV/OPV) Unknown Completed [facility] TDAP Unknown Completed [facility] Varicella (varivax)(chicken pox) Unknown Completed [facility] Meningococcal B, OMV Unknown Completed [facility] Influenza Virus Vaccine Quad .5 mL IM 6+ MO (FLUZONE/FLULAVAL/FL UARIX) Unknown Completed [facility] DTaP, Unspecified Formulation Unknown Completed [facility] HEPA,NOS Unknown Completed [facility] HEPATITIS A Unknown Completed [facility] HIB 4 Dose Schedule Unknown Completed [facility] Meningococcal Polysaccharide (groups A, C, Y and W-135) conjugate vaccine (MCV4P) Unknown Completed [facility] Pneumococcal 7 Conjugate, PCV7 (Prevnar7) Unknown Completed [facility] IPV Unknown Completed [facility] DTAP Unknown Completed [facility] HIB 3 Dose Schedule Unknown Completed [facility] Hepatitis A Adult Unknown Completed [facility] Hep B, Adol or Pedi Dosage Unknown Completed [facility] Meningococcal Vaccine Unknown Completed [facility] MMR Unknown Completed [facility] Pneumococcal 13 Conjugate, PCV13 (Prevnar 13) Unknown Completed [facility] Polio (IPV/OPV) Unknown Completed [facility] TDAP Unknown Completed [facility] Varicella (varivax)(chicken pox) Unknown Completed [facility] Meningococcal B, OMV Unknown Completed [facility] Influenza Virus Vaccine Quad .5 mL IM 6+ MO (FLUZONE/FLULAVAL/FL UARIX) Unknown Completed [facility] DTaP, Unspecified Formulation Unknown Completed [facility] HEPA,NOS Unknown Completed [facility] HEPATITIS A Unknown Completed [facility] HIB 4 Dose Schedule Unknown Completed [facility] Meningococcal Polysaccharide (groups A, C, Y and W-135) conjugate vaccine (MCV4P) Unknown Completed [facility] Pneumococcal 7 Conjugate, PCV7 (Prevnar7) Unknown Completed [facility] IPV Unknown Completed [facility] DTAP Unknown Completed [facility] HIB 3 Dose Schedule Unknown Completed [facility] Hepatitis A Adult Unknown [facility] Hep B, Adol or Pedi Dosage Unknown Completed [facility] Meningococcal Vaccine Unknown Completed [facility] MMR Unknown Completed [facility] Pneumococcal 13 Conjugate, PCV13 (Prevnar 13) Unknown Completed [facility] Polio (IPV/OPV) Unknown Completed [facility] TDAP Unknown Completed [facility] Varicella (varivax)(chicken pox) Unknown Completed [facility] Meningococcal B, OMV Unknown Completed [facility] Influenza Virus Vaccine Quad .5 mL IM 6+ MO (FLUZONE/FLULAVAL/FL UARIX) Unknown Completed [facility] DTaP, Unspecified Formulation Unknown Completed [facility] HEPA,NOS Unknown Completed [facility] HEPATITIS A Unknown Completed [facility] HIB 4 Dose Schedule Unknown Completed [facility] Meningococcal Polysaccharide (groups A, C, Y and W-135) conjugate vaccine (MCV4P) Unknown Completed [facility] Pneumococcal 7 Conjugate, PCV7 (Prevnar7) Unknown Completed [facility] IPV Unknown Completed [facility] DTAP Unknown Completed [facility] HIB 3 Dose Schedule Unknown Completed [facility] Hepatitis A Adult Unknown [facility] B, Adol or Pedi Dosage Unknown Completed [facility] Meningococcal Vaccine Unknown Completed [facility] MMR Unknown Completed [facility] Pneumococcal 13 Conjugate, PCV13 (Prevnar 13) Unknown Completed [facility] Polio (IPV/OPV) Unknown Completed [facility] TDAP Unknown Completed [facility] Varicella (varivax)(chicken pox) Unknown Completed [facility] Meningococcal B, OMV Unknown Completed [facility] Influenza Virus Vaccine Quad .5 mL IM 6+ MO (FLUZONE/FLULAVAL/FL UARIX) Unknown Completed [facility] DTaP, Unspecified Formulation Unknown Completed [facility] HEPA,NOS Unknown Completed [facility] HEPATITIS A Unknown Completed [facility] HIB 4 Dose Schedule Unknown Completed [facility] Meningococcal Polysaccharide (groups A, C, Y and W-135) conjugate vaccine (MCV4P) Unknown Completed [facility] Pneumococcal 7 Conjugate, PCV7 (Prevnar7) Unknown Completed [facility] IPV Unknown Completed [facility] DTAP Unknown Completed [facility] HIB 3 Dose Schedule Unknown Completed [facility] Hepatitis A Adult Unknown [facility] B, Adol or Pedi Dosage Unknown Completed [facility] Meningococcal Vaccine Unknown Completed [facility] MMR Unknown Completed [facility] Pneumococcal 13 Conjugate, PCV13 (Prevnar 13) Unknown Completed [facility] Polio (IPV/OPV) Unknown Completed [facility] TDAP Unknown Completed [facility] Varicella (varivax)(chicken pox) Unknown Completed [facility] Meningococcal B, OMV Unknown Completed [facility] Influenza Virus Vaccine Quad .5 mL IM 6+ MO (FLUZONE/FLULAVAL/FL UARIX) Unknown Completed [facility] DTaP, Unspecified Formulation Unknown Completed [facility] HEPA,NOS Unknown Completed [facility] HEPATITIS A Unknown Completed [facility] HIB 4 Dose Schedule Unknown Completed [facility] Meningococcal Polysaccharide (groups A, C, Y and W-135) conjugate vaccine (MCV4P) Unknown Completed [facility] Pneumococcal 7 Conjugate, PCV7 (Prevnar7) Unknown Completed [facility] IPV Unknown Completed [facility] DTAP Unknown Completed [facility] HIB 3 Dose Schedule Unknown Completed [facility] Hepatitis A Adult Unknown [facility] Hep B, Adol or Pedi Dosage Unknown Completed [facility] Meningococcal Vaccine Unknown Completed [facility] MMR Unknown Completed [facility] Pneumococcal 13 Conjugate, PCV13 (Prevnar 13) Unknown Completed [facility] Polio (IPV/OPV) Unknown Completed [facility] TDAP Unknown Completed [facility] Varicella (varivax)(chicken pox) Unknown Completed [facility] Meningococcal B, OMV Unknown Completed [facility] Influenza Virus Vaccine Quad .5 mL IM 6+ MO (FLUZONE/FLULAVAL/FL UARIX) Unknown Completed [facility] DTaP, Unspecified Formulation Unknown Completed [facility] HEPA,NOS Unknown Completed [facility] HEPATITIS A Unknown Completed [facility] HIB 4 Dose Schedule Unknown Completed [facility] Meningococcal Polysaccharide (groups A, C, Y and W-135) conjugate vaccine (MCV4P) Unknown Completed [facility] Pneumococcal 7 Conjugate, PCV7 (Prevnar7) Unknown Completed [facility] IPV Unknown Completed [facility] DTAP Unknown Completed [facility] HIB 3 Dose Schedule Unknown Completed [facility] Hepatitis A Adult Unknown [facility] Hep B, Adol or Pedi Dosage Unknown Completed [facility] Meningococcal Vaccine Unknown Completed [facility] MMR Unknown Completed [facility] Pneumococcal 13 Conjugate, PCV13 (Prevnar 13) Unknown Completed [facility] Polio (IPV/OPV) Unknown Completed [facility] TDAP Unknown Completed [facility] Varicella (varivax)(chicken pox) Unknown Completed [facility] Meningococcal B, OMV Unknown Completed [facility] Influenza Virus Vaccine Quad .5 mL IM 6+ MO (FLUZONE/FLULAVAL/FL UARIX) Unknown Completed [facility] DTaP, Unspecified Formulation Unknown Completed [facility] HEPA,NOS Unknown Completed [facility] HEPATITIS A Unknown Completed [facility] HIB 4 Dose Schedule Unknown Completed [facility] Meningococcal Polysaccharide (groups A, C, Y and W-135) conjugate vaccine (MCV4P) Unknown Completed [facility] Pneumococcal 7 Conjugate, PCV7 (Prevnar7) Unknown Completed [facility] IPV Unknown Completed [facility] DTAP Unknown Completed [facility] HIB 3 Dose Schedule Unknown Completed [facility] Hepatitis A Adult Unknown [facility] Hep B, Adol or Pedi Dosage Unknown Completed [facility] Meningococcal Vaccine Unknown Completed [facility] MMR Unknown Completed [facility] Pneumococcal 13 Conjugate, PCV13 (Prevnar 13) Unknown Completed [facility] Polio (IPV/OPV) Unknown Completed [facility] TDAP Unknown Completed [facility] Varicella (varivax)(chicken pox) Unknown Completed [facility] Meningococcal B, OMV Unknown Completed [facility] Influenza Virus Vaccine Quad .5 mL IM 6+ MO (FLUZONE/FLULAVAL/FL UARIX) Unknown Completed [facility] DTaP, Unspecified Formulation Unknown Completed [facility] HEPA,NOS Unknown Completed [facility] HEPATITIS A Unknown Completed [facility] HIB 4 Dose Schedule Unknown Completed [facility] Meningococcal Polysaccharide (groups A, C, Y and W-135) conjugate vaccine (MCV4P) Unknown Completed [facility] Pneumococcal 7 Conjugate, PCV7 (Prevnar7) Unknown Completed [facility] IPV Unknown Completed [facility] Vital Signs Vital Name Observation Time Observation Value Comments S ource Systolic blood pressure 2024-04-15 14:15:00 127 mm[Hg] [facility] Diastolic blood pressure 2024-04-15 14:15:00 92 mm[Hg] [facility] Heart rate 2024-04-15 14:03:00 79 /min [facility] Body temperature 2024-04-15 14:03:00 36.83 [facility]abil[facility] Respiratory rate 2024-04-15 14:03:00 17 /min [facility] Body height 2024-04-15 14:03:00 167.6 cm [facility] Body weight 2024-04-15 14:03:00 89.268 kg [facility] BMI 2024-04-15 14:03:00 31.76 kg/m2 [facility] Systolic blood pressure 2024-02-12 16:51:00 122 mm[Hg] [facility] Diastolic blood pressure 2024-02-12 16:51:00 83 mm[Hg] [facility] Heart rate 2024-02-12 16:51:00 82 /min [facility] Body temperature 2024-02-12 16:51:00 36.17 [facility] Body height 2024-02-12 16:51:00 167.6 cm [facility] Body weight 2024-02-12 16:51:00 88.361 kg [facility] BMI 2024-02-12 16:51:00 31.44 kg/m2 [facility] Systolic blood pressure 2024-01-17 19:11:00 123 mm[Hg] [facility] Diastolic blood pressure 2024-01-17 19:11:00 85 mm[Hg] [facility] Heart rate 2024-01-17 19:11:00 73 /min [facility] Respiratory rate 2024-01-17 19:11:00 17 /min [facility] Body height 2024-01-17 19:11:00 170.2 cm [facility] Body weight 2024-01-17 19:11:00 88.026 kg [facility] BMI 2024-01-17 19:11:00 30.39 kg/m2 [facility] Oxygen saturation in Arterial blood by Pulse oximetry 2024-01-17 19:11:00 98 /min [facility] Systolic blood pressure 2024-01-15 14:02:00 138 mm[Hg] [facility] Diastolic blood pressure 2024-01-15 14:02:00 86 mm[Hg] [facility] Heart rate 2024-01-15 13:56:00 84 /min [facility] Body temperature 2024-01-15 13:56:00 36.67 [facility] Respiratory rate 2024-01-15 13:56:00 17 /min [facility] Body height 2024-01-15 13:56:00 170.2 cm [facility] Body weight 2024-01-15 13:56:00 87.68 kg [facility] BMI 2024-01-15 13:56:00 30.28 kg/m2 [facility] Systolic blood pressure 2023-12-11 14:15:00 133 mm[Hg] [facility] Diastolic blood pressure 2023-12-11 14:15:00 85 mm[Hg] [facility] Heart rate 2023-12-11 14:15:00 81 /min [facility] Body temperature 2023-12-11 14:15:00 36.44 [facility] Respiratory rate 2023-12-11 14:15:00 18 /min [facility] Body height 2023-12-11 14:15:00 170.2 cm [facility] Body weight 2023-12-11 14:15:00 87.091 kg [facility] BMI 2023-12-11 14:15:00 30.07 kg/m2 [facility] Systolic blood pressure 2023-11-02 13:15:00 111 mm[Hg] [facility] Diastolic blood pressure 2023-11-02 13:15:00 72 mm[Hg] [facility] Heart rate 2023-11-02 13:15:00 78 /min [facility] Body temperature 2023-11-02 13:15:00 36.78 [facility] Body height 2023-11-02 13:15:00 170.2 cm [facility] Body weight 2023-11-02 13:15:00 84.823 kg [facility] BMI 2023-11-02 13:15:00 29.29 kg/m2 [facility] Oxygen saturation in Arterial blood by Pulse oximetry 2023-11-02 13:15:00 100 /min [facility] Systolic blood pressure 2023-09-21 14:11:00 131 mm[Hg] [facility] Diastolic blood pressure 2023-09-21 14:11:00 84 mm[Hg] [facility] Heart rate 2023-09-21 14:11:00 98 /min [facility] Body temperature 2023-09-21 14:11:00 36.33 [facility] Respiratory rate 2023-09-21 14:11:00 18 /min [facility] Body height 2023-09-21 14:11:00 170.2 cm [facility] Body weight 2023-09-21 14:11:00 89.994 kg [facility] BMI 2023-09-21 14:11:00 31.07 kg/m2 [facility] Systolic blood pressure 2023-09-17 09:00:00 131 mm[Hg] [facility] Diastolic blood pressure 2023-09-17 09:00:00 82 mm[Hg] [facility] Heart rate 2023-09-17 09:00:00 91 /min [facility] Body temperature 2023-09-17 09:00:00 36.78 [facility] Respiratory rate 2023-09-17 09:00:00 16 /min [facility] Oxygen saturation in Arterial blood by Pulse oximetry 2023-09-17 09:00:00 100 /min [facility] Body height 2023-09-17 07:15:00 170.2 cm [facility] Body weight 2023-09-17 07:15:00 86.183 kg [facility] BMI 2023-09-17 07:15:00 29.76 kg/m2 [facility] Heart rate 2023-08-27 03:19:00 70 /min [facility] Body temperature 2023-08-27 03:19:00 36.83 [facility] Respiratory rate 2023-08-27 03:19:00 16 /min [facility] Oxygen saturation in Arterial blood by Pulse oximetry 2023-08-27 03:19:00 98 /min [facility] Systolic blood pressure 2023-08-27 03:00:00 120 mm[Hg] [facility] Diastolic blood pressure 2023-08-27 03:00:00 76 mm[Hg] [facility] Body height 2023-08-27 01:44:00 170.2 cm [facility] Body weight 2023-08-27 01:44:00 86.183 kg [facility] BMI 2023-08-27 01:44:00 29.76 kg/m2 [facility] Systolic blood pressure 2023-08-24 12:23:00 128 mm[Hg] [facility] Diastolic blood pressure 2023-08-24 12:23:00 88 mm[Hg] [facility] Heart rate 2023-08-24 12:23:00 81 /min [facility] Body temperature 2023-08-24 12:23:00 36.33 [facility] Respiratory rate 2023-08-24 12:23:00 18 /min [facility] Body height 2023-08-24 12:23:00 167.6 cm [facility] Body weight 2023-08-24 12:23:00 86.456 kg [facility] BMI 2023-08-24 12:23:00 30.76 kg/m2 [facility] Systolic blood pressure 2023-08-10 18:38:00 137 mm[Hg] [facility] Diastolic blood pressure 2023-08-10 18:38:00 86 mm[Hg] [facility] Heart rate 2023-08-10 18:38:00 93 /min [facility] Body temperature 2023-08-10 18:38:00 35.39 [facility] Respiratory rate 2023-08-10 18:38:00 18 /min [facility] Body height 2023-08-10 18:38:00 167.6 cm [facility] Body weight 2023-08-10 18:38:00 85.73 kg [facility] BMI 2023-08-10 18:38:00 30.51 kg/m2 [facility] Systolic blood pressure 2023-02-08 22:19:00 135 mm[Hg] [facility] Diastolic blood pressure 2023-02-08 22:19:00 85 mm[Hg] [facility] Heart rate 2023-02-08 22:14:00 91 /min [facility] Body temperature 2023-02-08 22:14:00 36.39 [facility] Respiratory rate 2023-02-08 22:14:00 18 /min [facility] Body height 2023-02-08 22:14:00 167.6 cm [facility] Body weight 2023-02-08 22:14:00 78.382 kg [facility] BMI 2023-02-08 22:14:00 27.89 kg/m2 [facility] Systolic blood pressure 2022-08-12 15:38:00 123 mm[Hg] [facility] Diastolic blood pressure 2022-08-12 15:38:00 81 mm[Hg] [facility] Heart rate 2022-08-12 15:38:00 92 /min [facility] Body temperature 2022-08-12 15:38:00 35.83 [facility] Respiratory rate 2022-08-12 15:38:00 18 /min [facility] Body height 2022-08-12 15:38:00 167.6 cm [facility] Body weight 2022-08-12 15:38:00 80.377 kg [facility] BMI 2022-08-12 15:38:00 28.60 kg/m2 [facility] Systolic blood pressure 2022-08-01 15:20:00 134 mm[Hg] [facility] Diastolic blood pressure 2022-08-01 15:20:00 90 mm[Hg] [facility] Heart rate 2022-08-01 14:55:00 91 /min [facility] Body temperature 2022-08-01 14:55:00 36.5 [facility] Respiratory rate 2022-08-01 14:55:00 17 /min [facility] Body height 2022-08-01 14:55:00 167.6 cm [facility] Body weight 2022-08-01 14:55:00 81.874 kg [facility] BMI 2022-08-01 14:55:00 29.13 kg/m2 [facility] Systolic blood pressure 2022-07-29 16:00:00 131 mm[Hg] [facility] Diastolic blood pressure 2022-07-29 16:00:00 77 mm[Hg] [facility] Respiratory rate 2022-07-29 15:56:00 18 /min [facility] Heart rate 2022-07-29 12:15:00 112 /min [facility] Oxygen saturation in Arterial blood by Pulse oximetry 2022-07-29 12:15:00 96 /min [facility] Body temperature 2022-07-29 10:00:00 36.89 [facility] Body height 2022-07-29 03:10:00 167.6 cm [facility] Body weight 2022-07-29 03:10:00 83.643 kg [facility] BMI 2022-07-29 03:10:00 29.76 kg/m2 [facility] Systolic blood pressure 2022-07-25 13:45:00 140 mm[Hg] [facility] Diastolic blood pressure 2022-07-25 13:45:00 97 mm[Hg] [facility] Heart rate 2022-07-25 12:15:00 92 /min [facility] Body temperature 2022-07-25 12:15:00 36.67 [facility] Respiratory rate 2022-07-25 12:15:00 18 /min [facility] Oxygen saturation in Arterial blood by Pulse oximetry 2022-07-25 12:15:00 100 /min [facility] Body height 2022-07-24 14:30:00 167.6 cm [facility] Systolic blood pressure 2022-07-23 18:30:00 130 mm[Hg] [facility] Diastolic blood pressure 2022-07-23 18:30:00 84 mm[Hg] [facility] Heart rate 2022-07-23 18:30:00 115 /min [facility] Body temperature 2022-07-23 18:30:00 36.94 [facility] Respiratory rate 2022-07-23 18:30:00 18 /min [facility] Oxygen saturation in Arterial blood by Pulse oximetry 2022-07-23 18:30:00 99 /min [facility] Body height 2022-07-21 15:36:00 167.6 cm [facility] Body weight 2022-07-21 15:36:00 89.359 kg [facility] BMI 2022-07-21 15:36:00 31.80 kg/m2 [facility] Systolic blood pressure 2022-07-21 18:00:00 131 mm[Hg] [facility] Diastolic blood pressure 2022-07-21 18:00:00 84 mm[Hg] [facility] Heart rate 2022-07-21 18:00:00 104 /min [facility] Body temperature 2022-07-21 18:00:00 36.56 [facility] Respiratory rate 2022-07-21 18:00:00 18 /min [facility] Oxygen saturation in Arterial blood by Pulse oximetry 2022-07-21 18:00:00 100 /min [facility] Body height 2022-07-21 15:36:00 167.6 cm [facility] Body weight 2022-07-21 15:36:00 89.359 kg [facility] BMI 2022-07-21 15:36:00 31.80 kg/m2 [facility] Systolic blood pressure 2022-07-17 17:09:00 103 mm[Hg] [facility] Diastolic blood pressure 2022-07-17 17:09:00 51 mm[Hg] [facility] Heart rate 2022-07-17 17:09:00 82 /min [facility] Body temperature 2022-07-17 17:09:00 36.56 [facility] Respiratory rate 2022-07-17 17:09:00 16 /min [facility] Oxygen saturation in Arterial blood by Pulse oximetry 2022-07-17 17:09:00 99 /min [facility] Body height 2022-07-17 15:58:00 167.6 cm 5' 6" [facility] Body weight 2022-07-17 15:58:00 87.816 kg 193.6lb [facility] [facility] BMI 2022-07-17 15:58:00 31.25 kg/m2 [facility] Systolic blood pressure 2022-07-11 06:00:00 121 mm[Hg] [facility] Diastolic blood pressure 2022-07-11 06:00:00 68 mm[Hg] [facility] Heart rate 2022-07-11 06:00:00 100 /min Un[facility] Oxygen saturation in Arterial blood by Pulse oximetry 2022-07-11 06:00:00 99 /min [facility] Body temperature 2022-07-11 04:00:00 36.78 [facility] Respiratory rate 2022-07-11 04:00:00 18 /min [facility] Body height 2022-07-11 04:00:00 167.6 cm [facility] Body weight 2022-07-11 04:00:00 89.313 kg [facility] BMI 2022-07-11 04:00:00 31.78 kg/m2 [facility] Systolic blood pressure 2022-07-08 19:21:00 133 mm[Hg] [facility] Diastolic blood pressure 2022-07-08 19:21:00 79 mm[Hg] [facility] Heart rate 2022-07-08 19:21:00 94 /min Un[facility] Body temperature 2022-07-08 19:21:00 36.22 [facility] Respiratory rate 2022-07-08 19:21:00 18 /min [facility] Body height 2022-07-08 19:21:00 167.6 cm [facility] Body weight 2022-07-08 19:21:00 86.909 kg [facility] BMI 2022-07-08 19:21:00 30.93 kg/m2 [facility] Heart rate 2022-07-06 09:15:00 96 /min [facility] Oxygen saturation in Arterial blood by Pulse oximetry 2022-07-06 09:15:00 99 /min [facility] Systolic blood pressure 2022-07-06 05:20:00 121 mm[Hg] [facility] Diastolic blood pressure 2022-07-06 05:20:00 70 mm[Hg] [facility] Body temperature 2022-07-06 05:20:00 37.06 [facility] Body height 2022-07-06 05:20:00 167.6 cm [facility] Body weight 2022-07-06 05:20:00 86.637 kg [facility] BMI 2022-07-06 05:20:00 30.83 kg/m2 [facility] Respiratory rate 2022-07-06 05:01:00 16 /min [facility] Systolic blood pressure 2022-06-23 19:46:00 135 mm[Hg] [facility] Diastolic blood pressure 2022-06-23 19:46:00 85 mm[Hg] [place] o [facility] Heart rate 2022-06-23 19:46:00 102 /min [facility] Body temperature 2022-06-23 19:46:00 36.11 [facility] Respiratory rate 2022-06-23 19:46:00 18 /min [facility] Body height 2022-06-23 19:46:00 167.6 cm [facility] Body weight 2022-06-23 19:46:00 85.004 kg [facility] BMI 2022-06-23 19:46:00 30.25 kg/m2 [facility] Systolic blood pressure 2022-06-09 18:04:00 110 mm[Hg] [facility] Diastolic blood pressure 2022-06-09 18:04:00 60 mm[Hg] [facility] Heart rate 2022-06-09 17:59:00 112 /min [facility] Body temperature 2022-06-09 17:57:00 36.28 [facility] Respiratory rate 2022-06-09 17:57:00 18 /min [facility] Body height 2022-06-09 17:57:00 170.2 cm [facility] Body weight 2022-06-09 17:57:00 85.911 kg [facility] BMI 2022-06-09 17:57:00 29.66 kg/m2 [facility] Body temperature 2022-06-02 15:34:00 36.72 [facility] Body weight 2022-06-02 15:34:00 85.73 kg [facility] BMI 2022-06-02 15:34:00 30.51 kg/m2 [facility] Systolic blood pressure 2022-05-26 15:34:00 111 mm[Hg] [facility] Diastolic blood pressure 2022-05-26 15:34:00 71 mm[Hg] [facility] Heart rate 2022-05-26 15:34:00 87 /min [facility] Body temperature 2022-05-26 15:34:00 36.33 [facility] Respiratory rate 2022-05-26 15:34:00 18 /min [facility] Body height 2022-05-26 15:34:00 167.6 cm [facility] Body weight 2022-05-26 15:34:00 85.73 kg [facility] BMI 2022-05-26 15:34:00 30.51 kg/m2 [facility] Body temperature 2022-05-19 15:46:00 36.17 [facility] Body weight 2022-05-19 15:46:00 85.095 kg [facility] BMI 2022-05-19 15:46:00 30.28 kg/m2 [facility] Systolic blood pressure 2022-05-12 20:15:00 122 mm[Hg] [facility] Diastolic blood pressure 2022-05-12 20:15:00 67 mm[Hg] [facility] Heart rate 2022-05-12 20:15:00 85 /min [facility] Body temperature 2022-05-12 20:15:00 35.83 [facility] Respiratory rate 2022-05-12 20:15:00 18 /min [facility] Body height 2022-05-12 20:15:00 167.6 cm [facility] Body weight 2022-05-12 20:15:00 83.961 kg [facility] BMI 2022-05-12 20:15:00 29.88 kg/m2 [facility] Body temperature 2022-05-05 16:37:00 36.56 [facility] Body weight 2022-05-05 16:37:00 83.553 kg [facility] Systolic blood pressure 2022-04-28 17:19:00 128 mm[Hg] [facility] Diastolic blood pressure 2022-04-28 17:19:00 73 mm[Hg] [facility] Heart rate 2022-04-28 17:19:00 87 /min [facility] Body temperature 2022-04-28 17:19:00 37.06 [facility] Respiratory rate 2022-04-28 17:19:00 18 /min [facility] Body weight 2022-04-28 17:19:00 82.736 kg [facility] Body temperature 2022-04-21 16:16:00 36.61 [facility] Body weight 2022-04-21 16:16:00 81.421 kg [facility] BMI 2022-04-21 16:16:00 28.97 kg/m2 [facility] Systolic blood pressure 2022-04-14 16:55:00 119 mm[Hg] [facility] Diastolic blood pressure 2022-04-14 16:55:00 72 mm[Hg] [facility] Heart rate 2022-04-14 16:55:00 75 /min [facility] Body temperature 2022-04-14 16:55:00 36.78 [facility] Respiratory rate 2022-04-14 16:55:00 16 /min [facility] Body height 2022-04-14 16:55:00 167.6 cm [facility] Body weight 2022-04-14 16:55:00 79.742 kg [facility] BMI 2022-04-14 16:55:00 28.37 kg/m2 [facility] Systolic blood pressure 2022-04-07 19:07:00 122 mm[Hg] [facility] Diastolic blood pressure 2022-04-07 19:07:00 76 mm[Hg] [facility] Heart rate 2022-04-07 19:07:00 95 /min Un[facility] Body temperature 2022-04-07 19:07:00 37.06 [facility] Respiratory rate 2022-04-07 19:07:00 20 /min [facility] Body weight 2022-04-07 19:07:00 78.835 kg [facility] Systolic blood pressure 2022-03-31 15:59:00 118 mm[Hg] [place] o [facility] Diastolic blood pressure 2022-03-31 15:59:00 76 mm[Hg] [facility] Heart rate 2022-03-31 15:59:00 82 /min Un[facility] Body temperature 2022-03-31 15:59:00 37.11 [facility] Respiratory rate 2022-03-31 15:59:00 18 /min [facility] Body height 2022-03-31 15:59:00 167.6 cm [facility] Body weight 2022-03-31 15:59:00 76.885 kg [facility] BMI 2022-03-31 15:59:00 27.36 kg/m2 [facility] Body temperature 2022-03-24 15:55:00 36.61 [facility] Respiratory rate 2022-03-24 15:55:00 18 /min [facility] Body weight 2022-03-24 15:55:00 75.796 kg [facility] Systolic blood pressure 2022-03-10 17:15:00 116 mm[Hg] [facility] Diastolic blood pressure 2022-03-10 17:15:00 74 mm[Hg] [facility] Heart rate 2022-03-10 17:15:00 77 /min Un[facility] Body temperature 2022-03-10 17:15:00 36.94 [facility] Respiratory rate 2022-03-10 17:15:00 20 /min [facility] Body height 2022-03-10 17:15:00 167.6 cm [facility] Body weight 2022-03-10 17:15:00 72.938 kg [facility] BMI 2022-03-10 17:15:00 25.95 kg/m2 [facility] Systolic blood pressure 2022-02-24 16:18:00 109 mm[Hg] [facility] Diastolic blood pressure 2022-02-24 16:18:00 68 mm[Hg] [facility] Heart rate 2022-02-24 16:18:00 83 /min Un[facility] Body temperature 2022-02-24 16:18:00 36.44 [facility] Respiratory rate 2022-02-24 16:18:00 18 /min [facility] Body height 2022-02-24 16:18:00 167.6 cm [facility] Body weight 2022-02-24 16:18:00 69.673 kg [facility] BMI 2022-02-24 16:18:00 24.79 kg/m2 [facility] Systolic blood pressure 2022-02-10 19:32:00 135 mm[Hg] [facility] Diastolic blood pressure 2022-02-10 19:32:00 90 mm[Hg] [facility] Heart rate 2022-02-10 19:32:00 130 /min Un[facility] Body temperature 2022-02-10 19:32:00 36.89 [facility] Respiratory rate 2022-02-10 19:32:00 20 /min [facility] Body height 2022-02-10 19:32:00 167.6 cm [facility] Body weight 2022-02-10 19:32:00 71.215 kg [facility] BMI 2022-02-10 19:32:00 25.34 kg/m2 [facility] Systolic blood pressure 2022-01-27 15:32:00 127 mm[Hg] [facility] Diastolic blood pressure 2022-01-27 15:32:00 77 mm[Hg] [facility] Heart rate 2022-01-27 15:32:00 99 /min Unive [facility] Body temperature 2022-01-27 15:32:00 36.22 [facility] Respiratory rate 2022-01-27 15:32:00 20 /min [facility] Body height 2022-01-27 15:32:00 167.6 cm [facility] Body weight 2022-01-27 15:32:00 70.988 kg [facility] BMI 2022-01-27 15:32:00 25.26 kg/m2 [facility] Systolic blood pressure 2021-12-23 14:24:00 118 mm[Hg] [facility] Diastolic blood pressure 2021-12-23 14:24:00 77 mm[Hg] [facility] Heart rate 2021-12-23 14:24:00 87 /min [facility] Body temperature 2021-12-23 14:24:00 37 [facility] Respiratory rate 2021-12-23 14:24:00 18 /min [facility] Body height 2021-12-23 14:24:00 167.6 cm [facility] Body weight 2021-12-23 14:24:00 70.761 kg [facility] BMI 2021-12-23 14:24:00 25.18 kg/m2 [facility] Systolic blood pressure 2021-12-09 14:24:00 118 mm[Hg] [facility] Diastolic blood pressure 2021-12-09 14:24:00 79 mm[Hg] [facility] Heart rate 2021-12-09 14:24:00 88 /min [facility] Body temperature 2021-12-09 14:24:00 36.67 [facility] Respiratory rate 2021-12-09 14:24:00 16 /min [facility] Body height 2021-12-09 14:24:00 167.6 cm [facility] Body weight 2021-12-09 14:24:00 72.53 kg [facility] BMI 2021-12-09 14:24:00 25.81 kg/m2 [facility] Oxygen saturation in Arterial blood by Pulse oximetry 2021-12-09 14:24:00 97 /min [facility] Systolic blood pressure 2021-10-12 18:17:00 124 mm[Hg] [facility] Diastolic blood pressure 2021-10-12 18:17:00 90 mm[Hg] [place] o [facility] Heart rate 2021-10-12 18:17:00 112 /min [facility] Body temperature 2021-10-12 18:17:00 37.11 [facility] Respiratory rate 2021-10-12 18:17:00 20 /min [facility] Body height 2021-10-12 18:17:00 167.6 cm [facility] Body weight 2021-10-12 18:17:00 68.04 kg [facility] BMI 2021-10-12 18:17:00 24.21 kg/m2 [facility] Procedures Procedure Date / Time Performed Performing Clinician Source POCT TEST 2024-01-15 00:00:00 Nava Castañeda [facility] SLEEP LAB RESULTS 2023-12-12 22:35:00 Jennifer Gomez [facility] SLEEP STUDY DATA REPORT 2023-12-12 22:34:04 Jennifer Gomez [facility] POCT TEST 2023-11-02 13:41:00 Jennifer Gomez [facility] POCT TEST 2023-09-17 08:10:00 Jone Deleon [facility] URINALYSIS 2023-09-17 08:08:00 Jone Deleon [facility] COMP. METABOLIC PANEL (67152) 2023-08-27 02:06:00 Narda Blackwell [facility] CBC WITH DIFF 2023-08-27 02:06:00 Narda Blackwell [facility] URINALYSIS 2023-08-27 02:06:00 [facility] POCT TEST 2023-08-24 13:41:00 Nava Castañeda [facility] POCT TEST 2023-08-10 21:53:00 Nava Castañeda [facility] GC & CHLAMYDIA AMPLIFIED ASSAY 2023-02-08 22:47:00 Tushar Lan [facility] TRICHOMONAS AMPLIFIED ASSAY 2023-02-08 22:47:00 Tushar Lan [facility] POCT TEST 2023-02-08 22:44:00 Omar Lan [facility] ASSIGNMENT OF BENEFITS 2023-02-08 22:03:35 Docto r Unassigned, Salvisa [facility] PROTEIN CREAT RATIO URINE RANDOM 2022-07-29 05:00:00 Kasey Blanco [facility] CBC WITH DIFF 2022-07-25 10:37:00 Tony Blanco [facility] COMP. METABOLIC PANEL (19725) 2022-07-25 03:06:00 Kasey Blanco [facility] CBC WITH DIFF 2022-07-25 03:06:00 Tony Blanco [facility] PROTEIN CREAT RATIO URINE RANDOM 2022-07-25 03:06:00 Kasey Blanco [facility] CBC WITH DIFF 2022-07-22 08:27:00 Adum, Hetal Min [facility] CBC WITH DIFF 2022-07-22 08:27:00 Adum, Hetal Min [facility] SECTION 2022-07-21 18:36:00 Adum, [facility]etal [facility] 2022-07-21 18:36:00 Adum, Hetal [facility] URINE DRUG (IMMUNOASSAY) - COMPREHENSIVE DRUG SCREEN W/O REFLEX 2022-07-21 18:12:00 Adum, Hetal Mario [facility] URINE DRUG (IMMUNOASSAY) - COMPREHENSIVE DRUG SCREEN W/O REFLEX 2022-07-21 18:12:00 Adum, Hetal Mario [facility] CBC WITH DIFF 2022-07-21 16:52:00 Adum, Hetal Min [facility] HEPATITIS B SURFACE ANTIGEN 2022-07-21 16:52:00 Adum, Hetal Mario [facility] HB ABO GROUPING 2022-07-21 16:52:00 Adum, Hetal Avendano [facility] ADC OR KATALINA ONLY - RPR 2022-07-21 16:52:00 Adum, Hetal Fabiano [facility] HIV 1/2 AG-AB WITH REFLEX 2022-07-21 16:52:00 Adum, Hetal L [facility] CBC WITH DIFF 2022-07-21 16:52:00 Adum, Hetal L [facility] HEPATITIS B SURFACE ANTIGEN 2022-07-21 16:52:00 Adum, Hetal L [facility] HB ABO GROUPING 2022-07-21 16:52:00 Adum, Hetal Avendano [facility] ADC OR KATALINA ONLY - RPR 2022-07-21 16:52:00 Adum, Hetal L [facility] HIV 1/2 AG-AB WITH REFLEX 2022-07-21 16:52:00 Adum, Hetal Mario [facility] RHO (D) IMMUNE GLOBULIN 2022-07-21 16:52:00 Kasey Aviles [facility] ONLY - FERN TEST 2022-07-21 16:06:00 Adum, Hetal Mario [facility] ADC ONLY - FERN TEST 2022-07-21 16:06:00 Adum, Hetal Mario [facility] CONSENT/REFUSAL FOR DIAGNOSIS AND TREATMENT 2022-07-21 15:31:39 Doctor Unassigned, Salvisa [facility] CONSENT/REFUSAL FOR DIAGNOSIS AND TREATMENT 2022-07-21 15:31:39 Doctor Unassigned, Salvisa [facility] URINALYSIS 2022-07-17 16:35:00 Adum, Hteal Mario [facility] ONLY - FERN TEST 2022-07-17 16:35:00 Adum, Hetal L [facility] URINALYSIS 2022-07-11 06:30:00 Austin Arzola [facility] CLC OR LCC ONLY - WET PREP 2022-07-11 06:30:00 Austin Arzola [facility] NOTICE OF PRIVACY PRACTICES 2022-07-11 03:43:30 Doctor Unassigned, [place]visa [facility] CONSENT/REFUSAL FOR DIAGNOSIS AND TREATMENT 2022-07-11 03:43:01 Doctor Unassigned, [place]visa [facility] ASSIGNMENT OF BENEFITS 2022-07-11 03:42:40 Docto r Unassigned, [place]visa [facility] POCT URINALYSIS 2022-07-08 19:23:00 Antonette Luque [facility] L&D VISIT (NON-DELIVERED) 2022-07-06 05:01:00 Doctor Unassigned, Salvisa [facility] ASSIGNMENT OF BENEFITS 2022-07-06 04:55:57 Docto r Unassigned, Salvisa [facility] POCT URINALYSIS 2022-06-23 19:48:00 Antonette Luque [facility] POCT URINALYSIS 2022-06-09 18:04:00 Antonette Luque [facility] TDAP VACCINE, >11 YRS, IM 2022-05-26 15:59:59 Tushar Lan [facility] GLUCOSE 1 HOUR POST PRANDIAL 2022-05-12 21:16:00 Tushar Lan [facility] CBC WITH DIFF 2022-05-12 21:16:00 Tushar Lan [facility] POCT URINALYSIS 2022-05-12 20:18:00 Antonette Luque [facility] POCT URINALYSIS 2022-04-28 17:24:00 Antonette Luque [facility] SECOND AND THIRD TRIMESTER ULTRASOUND 2022-04-14 15:44:00 Antonette Luque [facility] POCT URINALYSIS 2022-03-31 16:02:00 Antonette Luque [facility] POCT URINALYSIS 2022-03-10 00:00:00 Antonette Luque [facility] POCT URINALYSIS 2022-02-24 16:30:00 Antonette Luque [facility] POCT URINALYSIS 2022-02-10 00:00:00 Antonette Luque [facility] POCT URINALYSIS 2022-01-27 15:33:00 Antonette Luque [facility] REPORT OF 2021-12-23 05:01:00 Doctor Mal scott, Salvisa [facility] POCT TEST 2021-12-23 00:00:00 Yuly Luque [facility] POCT URINALYSIS W/O SPECIFIC GRAVITY 2021-12-23 00:00:00 Antonette Luque [facility] FIRST TRIMESTER LESS THAN 14 WEEKS WITH TRANSVAGINAL 2021-12-14 21:24:20 Sara Snyder [facility] ASSIGNMENT OF BENEFITS 2021-12-14 19:54:43 Docto r Unassigned, [place]visa [facility] POCT TEST 2021-12-09 00:00:00 Holden Snyder [facility] POCT TEST 2021-10-12 18:22:00 Omar Lan [facility] Encounters Start Date/Time End Date/Time Encounter Type Admission Type Attending [facility] Facility Care Department Encounter ID Source 2022-07-24 07:39:17 Outpatient P VELEZ-ADAMARIS S, KASEY VELEZ-ADAMARIS S, KASEY [facility] ELIAZAR [id number] [facility] 2022-07-11 03:19:31 Outpatient X AZMB ELIAZAR [id number] [facility] 2020-12-27 22:10:58 [facility] [id number] 2020-12-27 22:10:57 Emergency [facility] [id number] [facility] 2020-12-27 19:19:43 Outpatient P AZMB ELIAZAR [id number] [facility] 2020-12-27 19:19:36 Outpatient P AZMB ELIAZAR [id number] [facility] 2024-04-15 08:15:00 2024-04-15 08:33:05 Outpatient R NAVA [facility] [id number] [facility] 2024-04-15 08:15:00 2024-04-15 08:33:05 Office Visit GarryNava [facility] CUSTOMER ENERGY SPECIALIST [facility] 1.2840.114 350.1.13.10 4.2.7.2.686 [id number] [facility] 2023-12-12 00:00:00 2024-04-13 06:49:25 Orders Only Jennifer Gomez [facility] [id number] 350.1.13.10 4.2.7.2.686 [id number] [facility] 2023-12-12 00:00:00 2024-04-13 06:49:21 Orders Only Jennifer Gomez [facility] 1.2840.114 350.1.13.10 4.2.7.2.686 [id number] [facility] 2024-02-12 11:00:00 2024-02-12 11:03:52 Outpatient R GARRYNAVA [facility] [id number] [facility] 2024-02-12 11:00:00 2024-02-12 11:03:52 Office Visit GarryNava [facility] CUSTOMER ENERGY SPECIALIST [facility] & CHILD [facility] 1.0.114 350.1.13.10 4.2.7.2.686 [id number] [facility] 2023-12-15 00:00:00 2024-01-20 18:27:59 Patient Secure Msg Doctor Unassigned, [place]visa Doctor Unassigned, [place]visa [facility] 1.2840.114 350.1.13.10 4.2.7.2.686 [id number] [facility] 2024-01-16 00:00:00 2024-01-19 11:06:04 Telephone Jennifer Gomez [facility] 1.2840.114 350.1.13.10 4.2.7.2.686 [id number] [facility] 2024-01-17 13:00:00 2024-01-17 13:33:20 Outpatient R WOLFGANG SMALLS STRAHIL [facility] [id number] [facility] 2024-01-17 13:00:00 2024-01-17 13:33:20 Office Visit Wolfgang Smalls [facility] 1.84.114 350.1.13.10 4.2.7.2.686 [id number] [facility] 2024-01-15 07:45:00 2024-01-15 08:36:29 Outpatient R NAVA CASTAÑEDA [facility] [id number] [facility] 2024-01-15 07:45:00 2024-01-15 08:36:29 Office Visit Nava Castañeda [facility] CUSTOMER ENERGY SPECIALIST [facility] & [facility]ILD [facility] 1.84.114 350.1.13.10 4.2.7.2.686 [id number] [facility] 2024-01-01 09:00:00 2024-01-01 09:00:00 Outpatient R NAVA CASTAÑEDA [facility] [id number] [facility] 2023-11-09 00:00:00 2023-12-16 18:29:42 Patient Secure Msg Doctor Unassigned, [place]vis[place] Doctor Unassigned, [place]visa [facility] 1.84.114 350.1.13.10 4.2.7.2.686 [id number] [facility] 2023-12-13 00:00:00 2023-12-13 07:33:28 Telephone eJnnifer Gomez [facility] 1.84.114 350.1.13.10 4.2.7.2.686 [id number] [facility] 2023-12-11 09:15:00 2023-12-11 09:47:17 Outpatient R NAVA CASTAÑEDA [facility] [id number] [facility] 2023-12-11 09:15:00 2023-12-11 09:47:17 Office Visit Nava Castañeda [facility] CUSTOMER ENERGY SPECIALIST [facility] 1..114 350.1.13.10 4.2.7.2.686 [id number] [facility] 2023-12-07 09:30:00 2023-12-07 09:45:00 Egg Tester Visit [facility] Wolfgang Smalls [facility] 1.84.114 350.1.13.10 4.2.7.2.686 [id number] [facility] 2023-12-07 09:30:00 2023-12-07 09:30:00 Outpatient R WOLFGANG SMALLS STRAHIL [facility] [id number] [facility] [facility] 2023-12-05 10:00:00 2023-12-05 10:00:00 Outpatient R [facility] [id number] [facility] 2023-11-09 00:00:00 2023-11-09 15:05:28 Patient Secure Msg Doctor Unassigned, [place] Doctor Unassigned, [place] [facility] MEDICAL OFFICE BUILDING 1.84.114 350.1.13.10 4.2.7.2.686 [id number] [facility] 2023-11-09 00:00:00 2023-11-09 11:16:11 Telephone Jennifer Gomez [facility] MEDICAL OFFICE BUILDING 1.84.114 350.1.13.10 4.2.7.2.686 [id number] [id number] [facility] 2023-11-07 10:00:00 2023-11-07 10:00:00 Outpatient R WOLFGANG SMALLS STRAHIL [facility] [id number] [facility] 2023-11-02 09:15:00 2023-11-02 09:30:00 Egg Tester Visit Lab, Ang - Jennifer Borrero Lab, Ang Poornima Gomez [facility] OFFICE BUILDING 1..840.114 350.1.13.10 4.2.7.2.686 [id number] [facility] 2023-11-02 09:15:00 2023-11-02 09:15:00 Outpatient R JENNIFER GOMEZ [facility] [id number] [facility] 2023-11-02 08:00:00 2023-11-02 08:45:10 Office Visit Jennifer Gomez [facility] MEDICAL OFFICE BUILDING 1..840.114 350.1.13.10 4.2.7.2.686 [id number] [id number] [facility] 2023-11-01 00:00:00 2023-11-01 10:09:58 Refill Nava Castañeda [facility] CUSTOMER ENERGY SPECIALIST [facility] & CHILD [facility] 1..840.114 350.1.13.10 4.2.7.2.686 [id number] [facility] 2023-09-21 09:00:00 2023-09-21 09:41:54 Outpatient R NAVA CASTAÑEDA [facility] [id number] [facility] 2023-09-21 09:00:00 2023-09-21 09:41:54 Office Visit Nava Castañeda [facility] CUSTOMER ENERGY SPECIALIST [facility] & CHILD [facility] 1..840.114 350.1.13.10 4.2.7.2.686 [id number] [facility] 2023-09-20 14:00:00 2023-09-20 14:00:00 Outpatient R NAVA CASTAÑEDA [facility] [id number] [facility] 2023-09-18 00:00:00 2023-09-19 08:26:55 Telephone Nava Castañeda [facility] CUSTOMER ENERGY SPECIALIST [facility] & CHILD [facility] 1.840.114 350.1.13.10 4.2.7.2.686 [id number] 107 [id number] [facility] 2023-09-17 02:19:00 2023-09-17 04:39:00 Emergency X JONE DELEON WILLIAM [facility] ERT [id number] [facility] 2023-09-17 02:19:00 2023-09-17 04:39:00 Emergency Jone Deleon [facility] 1.840.114 350.1.13.10 4.2.7.2.686 [id number] [facility] 2023-08-26 20:47:00 2023-08-26 22:56:00 Emergency X ROSALVANARDA Rosario [facility] ERT [id number] [facility] 2023-08-26 20:47:00 2023-08-26 22:56:00 Emergency RosalvaBrennaNarda [facility] 1..840.114 350.1.13.10 4.2.7.2.686 [id number] [id number] [facility] 2023-08-24 07:15:00 2023-08-24 08:09:48 Outpatient R NAVA CASTAÑEDA [facility] [id number] [facility] 2023-08-24 07:15:00 2023-08-24 08:09:48 Office Visit Nava Castañeda [facility] CUSTOMER ENERGY SPECIALIST [facility] & CHILD [facility] 1.840.114 350.1.13.10 4.2.7.2.686 [id number] [facility] 2023-08-17 07:15:00 2023-08-17 07:15:00 Outpatient R GARRYNAVA [facility] [id number] [facility] 2023-08-15 00:00:00 2023-08-15 00:00:00 Telephone Nava Castañeda [facility] CUSTOMER ENERGY SPECIALIST [facility] & CHILD [facility] 1..840.114 350.1.13.10 4.2.7.2.686 [id number] [facility] 2023-08-10 13:30:00 2023-08-10 14:01:12 Outpatient R GARRYNAVA [facility] [id number] [facility] 2023-08-10 13:30:00 2023-08-10 14:01:12 Office Visit GarryNava [facility] CUSTOMER ENERGY SPECIALIST [facility] CHILD [facility] 1..840.114 350.1.13.10 4.2.7.2.686 [id number] [facility] 2023-07-19 07:00:00 2023-07-19 07:00:00 Outpatient R TUSHAR LAN [facility] [id number] [facility] 2023-06-29 10:45:00 2023-06-29 10:45:00 Outpatient R TUSHAR LAN [facility] [id number] [facility] 2023-06-27 12:30:00 2023-06-27 12:30:00 Outpatient R ANTONETTE LUQUE [facility] [id number] [facility] 2023-02-09 10:30:00 2023-02-09 10:45:00 Egg Tester Visit Lab, Tk-RmchTushar Cochran [facility] 1..840.114 350.1.13.10 4.2.7.2.686 [id number] [facility] 2023-02-09 10:30:00 2023-02-09 10:30:00 Outpatient R TUSHAR LAN [facility] [id number] [facility] 2023-02-08 16:00:00 2023-02-08 16:42:47 Outpatient R TUSHAR LAN [facility] [id number] [facility] 2023-02-08 16:00:00 2023-02-08 16:42:47 Office Visit BrynTushar youssef Ashely [facility] CUSTOMER ENERGY SPECIALIST [facility] & CHILD [facility] 1.0.114 350.1.13.10 4.2.7.2.686 [id number] 107 [id number] [facility] 2023-02-08 00:00:00 2023-02-08 00:00:00 Orders Only Doctor Unassigned, [place] [facility] 1.0.114 350.1.13.10 4.2.7.2.686 [id number] [facility] 2022-12-08 14:45:00 2022-12-08 14:45:00 Outpatient R TUSHAR LAN [facility] [id number] [facility] 2022-09-07 15:15:00 2022-09-07 16:22:49 Outpatient R TUSHAR LAN [facility] [id number] [facility] 2022-08-29 00:00:00 2022-08-29 00:00:00 Telephone Tushar Lan [facility] CUSTOMER ENERGY SPECIALIST [facility]ILD [facility] 1.0.114 350.1.13.10 4.2.7.2.686 [id number] [facility] 2022-08-29 00:00:00 2022-08-29 00:00:00 Telephone RikyStevenTushar C [facility] CUSTOMER ENERGY SPECIALIST [facility] CHILD [facility] 1.840.114 350.1.13.10 4.2.7.2.686 [id number] 107 [id number] [facility] 2022-08-12 10:00:00 2022-08-12 11:16:38 Outpatient R TUSHAR LAN [facility] [id number] [facility] 2022-08-12 10:00:00 2022-08-12 11:16:38 Routine Visit Tushar Lan [facility] CUSTOMER ENERGY SPECIALIST [facility] CHILD [facility] 1.840.114 350.1.13.10 4.2.7.2.686 [id number] 107 [id number] [facility] 2022-08-01 09:30:00 2022-08-01 10:21:06 Nurse Visit Visit, Tk-Rmp Nurse Tushar Lan [facility] CUSTOMER ENERGY SPECIALIST [facility] CHILD [facility] 1..840.114 350.1.13.10 4.2.7.2.686 [id number] 107 [id number] [facility] 2022-08-01 09:30:00 2022-08-01 09:30:00 Outpatient R TUSHAR LAN [facility] [id number] [facility] 2022-08-01 00:00:00 2022-08-01 00:00:00 Patient Secure Msg Tushar Lan Ashely [facility] CUSTOMER ENERGY SPECIALIST [facility]ILD [facility] ..840.114 350.1.13.10 4.2.7.2.686 [id number] [facility] 2022-08-01 00:00:00 2022-08-01 00:00:00 Patient Secure Msg Tushar Lan Ashely [facility] CUSTOMER ENERGY SPECIALIST [facility] CHILD [facility] .840.114 350.1.13.10 4.2.7.2.686 [id number] [facility] 2022-07-28 20:06:00 2022-07-29 12:45:00 Outpatient P HETAL NORRIS [facility] [id number] [facility] 2022-07-28 20:06:00 2022-07-29 12:45:00 Hospital Encounter Velez-Adamaris s, Kasey Hetal Norris L [facility] 1.2.840.114 350.1.13.10 4.2.7.2.686 [id number] [facility] 2022-07-27 00:00:00 2022-07-27 00:00:00 Nurse Triage Patt Nova [facility] 1.2.840.114 350.1.13.10 4.2.7.2.686 [id number] [facility] 2022-07-26 00:00:00 2022-07-26 00:00:00 Telephone Tushar Lan [facility] CUSTOMER ENERGY SPECIALIST [facility]ILD [facility] 1.2.840.114 350.1.13.10 4.2.7.2.686 [id number] 107 [id number] [facility] 2022-07-24 09:28:00 2022-07-25 12:30:00 Outpatient P VELEZ-ADAMARIS S, KASEY VELEZ-ADAMARIS S, KASEY [facility] BELL CAPTAIN [id number] [facility] 2022-07-24 09:28:00 2022-07-25 12:30:00 Hospital Encounter Velez-Adamaris s, Kasey [facility] 1.2.840.114 350.1.13.10 4.2.7.2.686 [id number] [facility] 2022-07-21 10:37:00 2022-07-23 13:45:00 Inpatient X HETAL NORRIS [facility] [id number] [facility] 2022-07-21 10:37:00 2022-07-23 13:45:00 Hospital Encounter Hetal Norris [facility] 1.2.840.114 350.1.13.10 4.2.7.2.686 [id number] [id number] [facility] 2022-07-21 12:35:00 2022-07-21 14:27:00 Surgery AdHetal meneses [facility] 1.2840.114 350.1.13.10 4.2.7.2.686 [id number] [facility] 2022-07-21 10:45:00 2022-07-21 10:45:00 Outpatient R TUSHAR LAN [facility] [id number] [facility] 2022-07-19 00:00:00 2022-07-19 00:00:00 Case Management [facility] 1.2840.114 350.1.13.10 4.2.7.2.686 [id number] [facility] 2022-07-17 10:38:00 2022-07-17 12:40:00 Outpatient X HETAL NORRIS [facility] [id number] [facility] 2022-07-17 10:38:00 2022-07-17 12:40:00 Emergency AdHetal meneses [facility] 1.2840.114 350.1.13.10 4.2.7.2.686 [id number] [id number] [facility] 2022-07-10 22:46:00 2022-07-11 03:10:00 Outpatient X AUSTIN ARZOLA [facility] [id number] [facility] 2022-07-10 22:46:00 2022-07-11 03:10:00 Emergency Arzola Austin Felix [facility] 1.2840.114 350.1.13.10 4.2.7.2.686 [id number] [id number] [facility] 2022-07-11 00:00:00 2022-07-11 00:00:00 Telephone Tushar Lan [facility] CUSTOMER ENERGY SPECIALIST [facility] 1.2.840.114 350.1.13.10 4.2.7.2.686 [id number] 107 [id number] [facility] 2022-07-08 14:15:00 2022-07-08 14:41:47 Outpatient R TUSHAR LAN [facility] [id number] [facility] 2022-07-08 14:15:00 2022-07-08 14:41:47 Routine Visit Riky Tushar Lund [facility] CUSTOMER ENERGY SPECIALIST [facility] CHILD [facility] 1.2.840.114 350.1.13.10 4.2.7.2.686 [id number] [facility] 2022-07-06 00:06:00 2022-07-06 04:42:00 Outpatient P HETAL NORRIS [facility] [id number] [facility] 2022-07-06 00:06:00 2022-07-06 04:42:00 Emergency AdHetal meneses [facility] 1.2.840.114 350.1.13.10 4.2.7.2.686 [id number] [id number] [facility] 2022-07-06 00:00:00 2022-07-06 00:00:00 Orders Only Doctor Unassigned, [place]visa [facility] 1.2.840.114 350.1.13.10 4.2.7.2.686 [id number] [facility] 2022-07-05 00:00:00 2022-07-05 00:00:00 Orders Only Doctor Unassigned, [place]a [facility] 1.2.840.114 350.1.13.10 4.2.7.2.686 [id number] [facility] 2022-06-23 14:45:00 2022-06-23 15:08:35 Outpatient R TUSHAR LAN [facility] [id number] [facility] 2022-06-23 14:45:00 2022-06-23 15:08:35 Routine Visit Tushar Lan [facility] CUSTOMER ENERGY SPECIALIST [facility] & CHILD [facility] 1.2.840.114 350.1.13.10 4.2.7.2.686 [id number] [facility] 2022-06-16 13:00:00 2022-06-16 13:00:00 Outpatient R TUSHAR LAN [facility] [id number] [facility] 2022-06-09 12:45:00 2022-06-09 13:24:30 Outpatient R TUSHAR LAN [facility] [id number] [facility] 2022-06-09 12:45:00 2022-06-09 13:24:30 Routine Visit Tushar Lan [facility] CUSTOMER ENERGY SPECIALIST [facility] CHILD [facility] 1.2.840.114 350.1.13.10 4.2.7.2.686 [id number] [facility] 2022-06-02 10:30:00 2022-06-02 10:42:00 Nurse Visit Visit, Ang-Rmchp Nurse Tushar Lan [facility] CUSTOMER ENERGY SPECIALIST [facility] 1.2.840.114 350.1.13.10 4.2.7.2.686 [id number] 107 [id number] [facility] 2022-06-02 10:30:00 2022-06-02 10:30:00 Outpatient R TUSHAR LAN [facility] [id number] [facility] 2022-05-26 10:30:00 2022-05-26 11:07:20 Outpatient R TUSHAR LAN [facility] [id number] [facility] 2022-05-26 10:30:00 2022-05-26 11:07:20 Routine Visit Steven Laniljered Lund [facility] CUSTOMER ENERGY SPECIALIST [facility]ILD [facility] 1.2.840.114 350.1.13.10 4.2.7.2.686 [id number] [facility] 2022-05-19 10:30:00 2022-05-19 11:03:10 Nurse Visit Visit, WestRmchp Tushar Thomas [facility] CUSTOMER ENERGY SPECIALIST [facility]ILD [facility] 1.2.840.114 350.1.13.10 4.2.7.2.686 [id number] 107 [id number] [facility] 2022-05-19 10:30:00 2022-05-19 10:30:00 Outpatient R TUSHAR LAN [facility] [id number] [facility] 2022-05-12 14:45:00 2022-05-12 15:46:52 Outpatient R TUSHAR LAN [facility] [id number] [facility] 2022-05-12 14:45:00 2022-05-12 15:46:52 Routine Visit Steven Lanilola Ashely [facility] CUSTOMER ENERGY SPECIALIST [facility]ILD [facility] 1.2.840.114 350.1.13.10 4.2.7.2.686 [id number] 107 [id number] [facility] 2022-05-05 10:30:00 2022-05-05 10:45:51 Nurse Visit Visit, Ang-Rmchp Nurse Lan Tushar Ashely [facility] CUSTOMER ENERGY SPECIALIST [facility]ILD [facility] 1.2.840.114 350.1.13.10 4.2.7.2.686 [id number] 107 [id number] [facility] 2022-05-05 10:30:00 2022-05-05 10:30:00 Outpatient R TUSHAR LAN [facility] [id number] [facility] 2022-04-28 11:00:00 2022-04-28 11:44:12 Outpatient R TUSHAR LAN [facility] [id number] [facility] 2022-04-28 11:00:00 2022-04-28 11:44:12 Routine Visit Tushar Lan [facility] CUSTOMER ENERGY SPECIALIST [facility] 1.2.840.114 350.1.13.10 4.2.7.2.686 [id number] 107 [id number] [facility] 2022-04-21 10:00:00 2022-04-21 10:30:36 Nurse Visit Visit, Tk-Antonette Richards [facility] CUSTOMER ENERGY SPECIALIST [facility]ILD [facility] 1.2.840.114 350.1.13.10 4.2.7.2.686 [id number] 107 [id number] [facility] 2022-04-21 10:00:00 2022-04-21 10:00:00 Outpatient R ANTONETTE LUQUE [facility] [id number] [facility] 2022-04-14 09:15:00 2022-04-14 11:39:36 Routine Visit Risk, Tk-Liamchniya-N p/High Shereen Sky [facility] CUSTOMER ENERGY SPECIALIST [facility] CHILD [facility] 1.2.840.114 350.1.13.10 4.2.7.2.686 [id number] 107 [id number] [facility] 2022-04-14 10:30:00 2022-04-14 10:45:00 Nurse Visit Visit, Tushar Osei [facility] CUSTOMER ENERGY SPECIALIST [facility] 1.2.840.114 350.1.13.10 4.2.7.2.686 [id number] 107 [id number] [facility] 2022-04-14 09:30:00 2022-04-14 10:39:28 Outpatient P SHEREEN SKY [facility] [id number] [facility] 2022-04-14 09:30:00 2022-04-14 10:39:28 Egg Tester Visit Ultrasound, Shereen Sheridan [facility] CUSTOMER ENERGY SPECIALIST [facility] CHILD [facility] 1.2.840.114 350.1.13.10 4.2.7.2.686 [id number] [facility] 2022-04-14 10:30:00 2022-04-14 10:30:00 Outpatient TUSHAR COHN [facility] [id number] [facility] 2022-04-14 00:00:00 2022-04-14 00:00:00 Case Management Antonette Luque [facility] CUSTOMER ENERGY SPECIALIST [facility] 1..840.114 350.1.13.10 4.2.7.2.686 [id number] 107 [id number] [facility] 2022-04-07 13:00:00 2022-04-07 13:13:39 Nurse Visit Visit, Tk-Rmchp Nurse Tushar Lan [facility] 1..840.114 350.1.13.10 4.2.7.2.686 [id number] 107 [id number] [facility] 2022-04-07 13:00:00 2022-04-07 13:00:00 Outpatient TUSHAR COHN [facility] [id number] [facility] 2022-04-07 00:00:00 2022-04-07 00:00:00 Telephone Tushar Lan [facility] 1..840.114 350.1.13.10 4.2.7.2.686 [id number] 107 [id number] [facility] 2022-03-31 09:45:00 2022-03-31 10:58:49 Outpatient R EDWIN CAGE [facility] [id number] [facility] 2022-03-31 09:45:00 2022-03-31 10:58:49 Routine Visit Risk, Ang-Rmchp-N p/High Edwin Cage [facility] CUSTOMER ENERGY SPECIALIST [facility] 1.2.840.114 350.1.13.10 4.2.7.2.686 [id number] 107 [id number] [facility] 2022-03-24 10:00:00 2022-03-24 10:00:00 Nurse Visit Visit, Neftali Nurse Tushar Lan [facility] CUSTOMER ENERGY SPECIALIST [facility] 1.2840.114 350.1.13.10 4.2.7.2.686 [id number] 107 [id number] [facility] 2022-03-24 10:00:00 2022-03-24 09:55:01 Outpatient R TUSHAR LAN [facility] [id number] [facility] 2022-03-15 00:00:00 2022-03-15 00:00:00 Telephone Tushar Lan [facility] CUSTOMER ENERGY SPECIALIST [facility] 1.840.114 350.1.13.10 4.2.7.2.686 [id number] 107 [id number] [facility] 2022-03-10 11:00:00 2022-03-10 11:45:31 Outpatient R EDWIN CAGE [facility] [id number] [facility] 2022-03-10 11:00:00 2022-03-10 11:45:31 Routine Visit Risk, Ang-Rmchp-N p/High Edwin Cage [facility] CUST[employer]ER ENER[employer] SPECIALIST [facility] 1.284.114 350.1.13.10 4.2.7.2.686 [id number] [facility] 2022-03-10 10:30:00 2022-03-10 10:30:00 Outpatient R [facility] [id number] [facility] 2022-03-07 00:00:00 2022-03-07 00:00:00 Telephone Tushar Lan [facility] C[employer] ENER[employer] SPECIALIST [facility] 1.2.840.114 350.1.13.10 4.2.7.2.686 [id number] [facility] 2022-03-07 00:00:00 2022-03-07 00:00:00 Case Management Edwin Cage [facility] C[employer]ER[employer] SPECIALIST [facility] 1..840.114 350.1.13.10 4.2.7.2.686 [id number] [facility] 2022-02-24 10:00:00 2022-02-24 11:04:18 Outpatient EDWIN BARANRD [facility] [id number] [facility] 2022-02-24 10:00:00 2022-02-24 11:04:18 Routine Visit Risk, Ang-Rmchp-N p/High Edwin Cage [facility] 1..840.114 350.1.13.10 4.2.7.2.686 [id number] [facility] 2022-02-10 13:15:00 2022-02-10 13:59:26 Outpatient EDWIN BARNARD [facility] [id number] [facility] 2022-02-10 13:15:00 2022-02-10 13:59:26 Routine Visit Risk, Ang-Rmchp-N p/High Edwin Cage [facility] C[employer] ENER[employer] SPECIALIST [facility] 1.2.840.114 350.1.13.10 4.2.7.2.686 [id number] [facility] 2022-01-27 09:00:00 2022-01-27 10:00:53 Outpatient EDWIN BARNARD [facility] [id number] [facility] 2022-01-27 09:00:00 2022-01-27 10:00:53 Routine Visit Risk, Neftali-N p/Edwin Melendez [facility] C[employer] ENER[employer] SPECIALIST [facility] 1.84.114 350.1.13.10 4.2.7.2.686 [id number] [facility] 2022-01-10 00:00:00 2022-01-10 00:00:00 Case Management Antonette Luque [facility] C[employer] ENER[employer] SPECIALIST [facility] 1.84.114 350.1.13.10 4.2.7.2.686 [id number] [facility] 2022-01-06 15:15:00 2022-01-06 15:45:00 Egg Tester Visit Ultrasound, Leonardo Cooper David [facility] CUST[employer]ER[employer] SPECIALIST [facility] 1.84.114 350.1.13.10 4.2.7.2.686 [id number] [facility] 2022-01-06 15:15:00 2022-01-06 15:15:00 Outpatient DAVID OCHOA [facility] [id number] [facility] 2021-12-30 10:00:00 2021-12-30 10:00:00 Outpatient R SARA SNYDER CHERYAL [facility] [id number] [facility] 2021-12-23 09:15:00 2021-12-23 10:41:00 Outpatient ANTONETTE KEENAN [facility] [id number] [facility] 2021-12-23 09:15:00 2021-12-23 10:41:00 Initial Visit Provider, Niki Mayfield Brenda A [facility] CUSTOMER ENERGY SPECIALIST [facility] CHILD [facility] 1.2.840.114 350.1.13.10 4.2.7.2.686 [id number] [facility] 2021-12-23 00:00:00 2021-12-23 00:00:00 Orders Only Doctor Unassigned, [place] [facility] 1.2.840.114 350.1.13.10 4.2.7.2.686 [id number] [facility] 2021-12-17 00:00:00 2021-12-17 00:00:00 Case Management Tiffani [facility] 1.2840.114 350.1.13.10 4.2.7.2.686 [id number] [facility] 2021-12-14 14:55:04 2021-12-14 23:59:00 Outpatient R SARA SNYDER [facility] [id number] [facility] 2021-12-14 14:55:04 2021-12-14 23:59:00 Hospital Encounter Sara Snyder [facility] 1.2.840.114 350.1.13.10 4.2.7.2.686 [id number] [facility] 2021-12-14 00:00:00 2021-12-14 00:00:00 Orders Only Doctor Unassigned, [place] [facility] 1.2.840.114 350.1.13.10 4.2.7.2.686 [id number] [facility] 2021-12-09 09:00:00 2021-12-09 09:43:20 Outpatient R SARA SNYDER CHERYAL [facility] [id number] [facility] 2021-12-09 09:00:00 2021-12-09 09:43:20 Initial Visit Sara Snyder [facility] 1.2.840.114 350.1.13.10 4.2.7.2.686 [id number] [facility] 2021-10-12 13:00:00 2021-10-12 13:34:47 Office Visit Tushar Lan [facility] CUSTOMER ENERGY SPECIALIST [facility] 1.840.114 350.1.13.10 4.2.7.2.686 [id number] [facility] 2021-10-12 13:00:00 2021-10-12 13:34:47 Outpatient R TUSHAR LAN [facility] [id number] [facility] 2021-10-12 13:00:00 2021-10-12 13:00:00 Outpatient R TUSHAR LAN [facility] [id number] [facility] 2021-10-12 13:00:00 2021-10-12 13:00:00 Outpatient R TUSHAR LAN [facility] [id number] [facility] 2021-10-12 00:00:00 2021-10-12 00:00:00 Orders Only Doctor Unassigned, [place] [facility] 1.840.114 350.1.13.10 4.2.7.2.686 [id number] [facility] 2021-09-28 12:45:00 2021-09-28 14:31:13 Outpatient R TUSHAR LAN [facility] [id number] [facility] 2021-09-28 12:45:00 2021-09-28 14:31:13 Office Visit Tushar Lan [facility] CUSTOMER ENERGY SPECIALIST [facility] 1.84.114 350.1.13.10 4.2.7.2.686 [id number] [facility] 2021-08-05 16:15:00 2021-08-05 16:15:00 Outpatient JAM DESIR [facility] [id number] Alok atylor [facility] 2021-06-18 11:00:00 2021-06-18 11:00:00 Outpatient R MARY ANN CRUMP [facility] [id number] [facility] 2021-06-15 00:00:00 2021-06-15 00:00:00 Orders Only Doctor Unassigned, [place] [facility] 1..114 350.1.13.10 4.2.7.2.686 [id number] [facility] 2021-06-15 00:00:00 2021-06-15 00:00:00 Patient Secure Msg Doctor Unassigned, [place] [facility] 1..114 350.1.13.10 4.2.7.2.686 [id number] [facility] 2021-03-09 14:00:00 2021-03-09 14:00:00 Outpatient TUSHAR COHN [facility] [id number] [facility] 2021-03-02 00:00:00 2021-03-02 00:00:00 Tushar Hinds [facility] CUSTOMER ENERGY SPECIALIST [facility] 1..114 350.1.13.10 4.2.7.2.686 [id number] 107 [id number] [facility] 2021-02-12 00:00:00 2021-02-12 00:00:00 Ernesto Hoffman [facility] CUSTOMER ENERGY SPECIALIST [facility] 1..114 350.1.13.10 4.2.7.2.686 [id number] [facility] 2021-02-11 00:00:00 2021-02-11 00:00:00 Tushar Galaviz [facility] CUSTOMER ENERGY SPECIALIST [facility] 1..114 350.1.13.10 4.2.7.2.686 [id number] [facility] 2021-01-27 00:00:00 2021-01-27 00:00:00 RefErnesto Garcia [facility] CUSTOMER ENERGY SPECIALIST [facility] 1..840.114 350.1.13.10 4.2.7.2.686 [id number] [facility] 2021-01-18 16:00:00 2021-01-18 16:18:34 Outpatient R ERNESTO PEACOCK [facility] [id number] [facility] 2021-01-18 15:59:18 2021-01-18 16:18:34 Office Visit Ernesot Peacock [facility] CUSTOMER ENERGY SPECIALIST [facility] 1..840.114 350.1.13.10 4.2.7.2.686 [id number] 107 [id number] [facility] 2021-01-18 16:00:00 2021-01-18 16:00:00 Outpatient R ERNESTO PEACOCK [facility] [id number] [facility] 2021-01-15 13:15:00 2021-01-15 13:15:00 Outpatient R ERNESTO PEACOCK [facility] [id number] [facility] 2020-12-11 00:00:00 2020-12-11 00:00:00 Telephone Tushar Lan [facility] CUSTOMER ENERGY SPECIALIST [facility] .840.114 350.1.13.10 4.2.7.2.686 [id number] 107 [id number] [facility] 2020-10-20 13:30:06 2020-10-20 14:12:47 Office Visit Niki Ralph [facility] CUSTOMER ENERGY SPECIALIST [facility] 1..840.114 350.1.13.10 4.2.7.2.686 [id number] 107 [id number] [facility] 2020-10-20 13:30:00 2020-10-20 13:30:00 Outpatient R NIKI RALPH [facility] [id number] [facility] 2020-10-14 15:00:00 2020-10-14 15:00:00 Outpatient R TUSHAR LAN [facility] [id number] [facility] 2020-10-12 14:17:44 2020-10-12 15:03:31 Office Visit Tushar Lan [facility] CUSTOMER ENERGY SPECIALIST [facility] & CHILD [facility] 1.840.114 350.1.13.10 4.2.7.2.686 [id number] 107 [id number] [facility] 2020-10-12 14:30:00 2020-10-12 14:30:00 Outpatient R TUSHAR LAN [facility] [id number] [facility] 2020-09-28 08:30:00 2020-09-28 08:30:00 Outpatient R TUSHAR LAN [facility] [id number] [facility] 2020-09-28 00:00:00 2020-09-28 00:00:00 Telephone Ernesto Peacock [facility] CUSTOMER ENERGY SPECIALIST [facility] .84.114 350.1.13.10 4.2.7.2.686 [id number] 107 [id number] [facility] 2020-09-25 00:00:00 2020-09-25 00:00:00 Telephone Tushar Lan [facility] CUSTOMER ENERGY SPECIALIST [facility] .840.114 350.1.13.10 4.2.7.2.686 [id number] 107 [id number] [facility] 2020-09-24 14:14:05 2020-09-24 14:29:05 Office Visit Tushar Lan [facility] CUSTOMER ENERGY SPECIALIST [facility] 1.840.114 350.1.13.10 4.2.7.2.686 [id number] [facility] 2020-09-24 14:15:00 2020-09-24 14:15:00 Outpatient R TUSHAR LAN [facility] [id number] [facility] 2020-09-08 16:00:00 2020-09-08 16:00:00 Outpatient ERNESTO STARKS [facility] [id number] [facility] 2020-08-18 13:04:51 2020-08-18 13:45:53 Routine Visit Tushar Lan [facility] CUSTOMER ENERGY SPECIALIST [facility]ILD [facility] 02.28.840.114 350...10 4.2.7.2.686 [id number] [facility] 2020-08-18 13:15:00 2020-08-18 13:15:00 Outpatient R TUSHAR LAN [facility] [id number] [facility] 2020-08-06 11:00:00 2020-08-06 11:00:00 Outpatient R ERNESTO PEACOCK [facility] [id number] [facility] 2020-08-06 08:21:04 2020-08-06 09:08:19 Nurse Visit Visit, Ang-Rmchp Nurse Tushar Lan [facility] CUSTOMER ENERGY SPECIALIST [facility] CHILD [facility] 02.28.840.114 350..13.10 4.2.7.2.686 [id number] [facility] 2020-08-06 09:00:00 2020-08-06 09:00:00 Outpatient R TUSHAR LAN [facility] [id number] [facility] 2020-08-04 00:00:00 2020-08-04 00:00:00 Telephone Ernesto Peacock [facility] CUSTOMER ENERGY SPECIALIST [facility]ILD [facility] 02.28.840.114 350..13.10 4.2.7.2.686 [id number] 107 [id number] [facility] 2020-08-01 00:00:00 2020-08-01 00:00:00 Encounter 1.2.840.1 [id number] 3.104.2.7 [id number] 1.2.840.114 350.1.13.10 4.2.7.2.696 [id number] [facility] 2020-07-26 14:30:00 2020-07-28 17:45:00 Hospital Encounter Rosio Breen [facility] 1.2.840.114 350.1.13.10 4.2.7.2.686 [id number] [id number] [facility] 2020-07-27 10:49:00 2020-07-27 16:19:00 Anesthesia Event Dylan Prieto [facility] 1.2.840.114 350.1.13.10 4.2.7.2.686 [id number] [facility] 2020-07-26 19:50:09 2020-07-26 19:50:09 Anesthesia Event Angelica Sifuentes [facility] 1.2.840.114 350.1.13.10 4.2.7.2.686 [id number] [facility] 2020-07-21 12:46:13 2020-07-21 13:17:55 Routine Visit Ernesto Peacock [facility] CUSTOMER ENERGY SPECIALIST [facility] 1.2.840.114 350.1.13.10 4.2.7.2.686 [id number] 107 [id number] [facility] 2020-07-21 12:45:00 2020-07-21 12:45:00 Outpatient ERNESTO STARKS [facility] [id number] [facility] 2020-07-12 02:00:00 2020-07-12 03:20:00 Hospital Encounter Hetal Norris [facility] 1.2.840.114 350.1.13.10 4.2.7.2.686 [id number] [facility] 2020-07-07 10:39:36 2020-07-07 11:15:55 Routine Visit Ernesto Peacock [facility] CUSTOMER ENERGY SPECIALIST [facility]ILD [facility] 1.2.840.114 350.1.13.10 4.2.7.2.686 [id number] 107 [id number] [facility] 2020-07-07 10:45:00 2020-07-07 10:45:00 Outpatient ERNESTO STARKS [facility] [id number] [facility] 2020-06-26 00:00:00 2020-06-26 00:00:00 Telephone Tushar Lan [facility] CUSTOMER ENERGY SPECIALIST [facility]ILD [facility] 1.2.840.114 350.1.13.10 4.2.7.2.686 [id number] 107 [id number] [facility] 2020-06-26 00:00:00 2020-06-26 00:00:00 Patient Secure Msg Ernesto Peacock [facility] CUSTOMER ENERGY SPECIALIST [facility] 1.2.840.114 350.1.13.10 4.2.7.2.686 [id number] [facility] 2020-06-23 14:10:30 2020-06-23 14:38:56 Routine Visit Ernesto Peacock [facility] CUSTOMER ENERGY SPECIALIST [facility]ILD [facility] 1.2.840.114 350.1.13.10 4.2.7.2.686 [id number] 107 [id number] [facility] 2020-06-23 14:15:00 2020-06-23 14:15:00 Outpatient ERNESTO STARKS [facility] [id number] [facility] 2020-06-11 00:00:00 2020-06-11 00:00:00 Orders Only Doctor Unassigned, [place] [facility] 1.2840.114 350.1.13.10 4.2.7.2.686 [id number] [facility] 2020-06-09 14:16:51 2020-06-09 14:55:17 Routine Visit Niki Ralph Emily N [facility] CUSTOMER ENERGY SPECIALIST [facility]ILD [facility] 1.840.114 350.1.13.10 4.2.7.2.686 [id number] [facility] 2020-06-09 14:15:00 2020-06-09 14:15:00 Outpatient ERNESTO STARKS [facility] [id number] [facility] 2020-06-02 00:00:00 2020-06-02 00:00:00 Orders Only Doctor Unassigned, [place] [facility] 1.20.114 350.1.13.10 4.2.7.2.686 [id number] [facility] 2020-06-01 00:00:00 2020-06-01 00:00:00 Refill Tushar Lan [facility] CHILD [facility] 1.0.114 350.1.13.10 4.2.7.2.686 [id number] 107 [id number] [facility] 2020-05-21 12:58:26 2020-05-21 13:13:26 Egg Tester Visit Lab, Ang-Rmchp Tushar Lan [facility] CUSTOMER ENERGY SPECIALIST [facility]ILD [facility] 1.840.114 350.1.13.10 4.2.7.2.686 [id number] 107 [id number] [facility] 2020-05-21 13:00:00 2020-05-21 13:00:00 Outpatient TUSHAR COHN [facility] [id number] [facility] 2020-05-19 12:45:26 2020-05-19 13:11:32 Routine Visit Ernesto Peacock [facility] CUSTOMER ENERGY SPECIALIST [facility] 1..840.114 350.1.13.10 4.2.7.2.686 [id number] 107 [id number] [facility] 2020-05-19 12:45:00 2020-05-19 12:45:00 Outpatient R ERNESTO PEACOCK [facility] [id number] [facility] 2020-05-19 00:00:00 2020-05-19 00:00:00 Patient Outreach Jeffery Dumont [facility] 1..840.114 350.1.13.10 4.2.7.2.686 [id number] [facility] 2020-04-23 15:54:18 2020-04-23 16:11:16 Routine Visit Ernesto Peacock [facility] CUSTOMER ENERGY SPECIALIST [facility] 1..840.114 350.1.13.10 4.2.7.2.686 [id number] [facility] 2020-04-23 16:00:00 2020-04-23 16:00:00 Outpatient R ERNESTO PEACOCK [facility] [id number] [facility] 2020-04-14 12:45:00 2020-04-14 12:45:00 Outpatient R ERNESTO PEACOCK [facility] [id number] [facility] 2020-04-09 13:55:54 2020-04-09 14:54:41 Egg Tester Visit Ultrasound, Radha Alvarado [facility] CUSTOMER ENERGY SPECIALIST [facility]ILD [facility] 1..840.114 350.1.13.10 4.2.7.2.686 [id number] [facility] 2020-04-09 14:00:00 2020-04-09 14:00:00 Outpatient P [facility] [id number] [facility] 2020-04-07 00:00:00 2020-04-07 00:00:00 Telephone Ernesto Peacock [facility] CUSTOMER ENERGY SPECIALIST [facility] 1.2.114 350.1.13.10 4.2.7.2.686 [id number] 107 [id number] [facility] 2020-03-26 00:00:00 2020-03-26 00:00:00 Orders Only Doctor Unassigned, [place] [facility] 1..114 350.1.13.10 4.2.7.2.686 [id number] [facility] 2020-03-17 12:49:30 2020-03-17 13:34:04 Routine Visit Ernesto Peacock [facility] CUSTOMER ENERGY SPECIALIST [facility] 1..114 350.1.13.10 4.2.7.2.686 [id number] 107 [id number] [facility] 2020-03-17 13:00:00 2020-03-17 13:00:00 Outpatient R ERNESTO PEACOCK [facility] [id number] [facility] 2020-02-25 00:00:00 2020-02-25 00:00:00 Telephone Ernesto Peacock [facility] CUSTOMER ENERGY SPECIALIST [facility] 1..114 350.1.13.10 4.2.7.2.686 [id number] [facility] 2020-02-18 14:45:00 2020-02-18 14:45:00 Outpatient R ERNESTO PEACOCK [facility] [id number] [facility] 2020-02-18 14:09:04 2020-02-18 14:39:35 Routine Visit Ernesto Peacock [facility] CUSTOMER ENERGY SPECIALIST [facility] 1..114 350.1.13.10 4.2.7.2.686 [id number] 107 [id number] [facility] 2020-02-03 00:00:00 2020-02-03 00:00:00 Telephone BrynberynjohnathanAshlynTushar C [facility] CUSTOMER ENERGY SPECIALIST [facility]ILD [facility] 1.2.114 350.1.13.10 4.2.7.2.686 [id number] 107 [id number] [facility] 2020-02-03 00:00:00 2020-02-03 00:00:00 Refill Doctor Unassigned, [place] [facility] CUSTOMER ENERGY SPECIALIST [facility] 1..114 350.1.13.10 4.2.7.2.686 [id number] 107 [id number] [facility] 2020-01-21 15:20:02 2020-01-21 16:02:58 Routine Visit Ernesto Peacock [facility] CUSTOMER ENERGY SPECIALIST [facility]ILD [facility] 1..114 350.1.13.10 4.2.7.2.686 [id number] 107 [id number] [facility] 2020-01-21 15:30:00 2020-01-21 15:30:00 Outpatient R ERNESTO PEACOCK [facility] [id number] [facility] 2020-01-18 00:00:00 2020-01-18 00:00:00 Refill Doctor Unassigned, [place] [facility] 1..114 350.1.13.10 4.2.7.2.686 [id number] 107 [id number] [facility] 2020-01-09 14:52:31 2020-01-09 15:17:04 Egg Tester Visit Ultrasound, Shereen Sheridan [facility] CUSTOMER ENERGY SPECIALIST [facility] CHILD [facility] 1.2.114 350.1.13.10 4.2.7.2.686 [id number] [facility] 2020-01-09 14:45:00 2020-01-09 14:45:00 Outpatient P [facility] [id number] [facility] 2020-01-09 00:00:00 2020-01-09 00:00:00 Abstract Ernesto Peacock [facility] CUSTOMER ENERGY SPECIALIST [facility]ILD [facility] 1.2840.114 350.1.13.10 4.2.7.2.686 [id number] 107 [id number] [facility] 2019-12-27 00:00:00 2019-12-27 00:00:00 Telephone Tushar Lan [facility] CUSTOMER ENERGY SPECIALIST [facility]ILD [facility] 1.20.114 350.1.13.10 4.2.7.2.686 [id number] 107 [id number] [facility] 2019-12-26 13:39:00 2019-12-26 15:06:17 Initial Visit Ernesto Peacock [facility] 1.20.114 350.1.13.10 4.2.7.2.686 [id number] 107 [id number] [facility] 2019-12-26 13:45:00 2019-12-26 13:45:00 Outpatient R ERNESTO PEACOCK [facility] [id number] [facility] 2019-12-26 00:00:00 2019-12-26 00:00:00 Orders Only Doctor Unassigned, [place] [facility] 1.840.114 350.1.13.10 4.2.7.2.686 [id number] [facility] 2019-12-09 13:15:00 2019-12-09 13:15:00 Outpatient R TUSHAR LAN [facility] [id number] [facility] 2019-10-28 00:00:00 2019-10-28 00:00:00 Telephone Tushar Lan [facility] CUSTOMER ENERGY SPECIALIST [facility] CHILD [facility] 1.2840.114 350.1.13.10 4.2.7.2.686 [id number] 2019-10-28 00:00:00 2019-10-28 00:00:00 Telephone OliverjohnathanTushar Ashely [facility] CUSTOMER ENERGY SPECIALIST [facility] CHILD [facility] 1.2.840.114 350.1.13.10 4.2.7.2.686 [id number] 107 [id number] [facility] 2019-10-09 08:16:20 2019-10-09 08:48:41 Office Visit OliverjohnathanTushar Ashely [facility] CUSTOMER ENERGY SPECIALIST [facility]ILD [facility] 1.2.840.114 350.1.13.10 4.2.7.2.686 [id number] 2019-10-09 08:16:20 2019-10-09 08:48:41 Office Visit Tushar Lan Ashely [facility] CUSTOMER ENERGY SPECIALIST [facility] & CHILD [facility] 1.2.840.114 350.1.13.10 4.2.7.2.686 [id number] [facility] 2019-10-09 08:15:00 2019-10-09 08:15:00 Outpatient R TUSHAR LAN [facility] [id number] [facility] 2019-10-07 10:30:00 2019-10-07 10:30:00 Outpatient R TUSHAR LAN [facility] [id number] [facility] 2019-09-27 00:00:00 2019-09-27 00:00:00 Telephone Tushar Lan [facility] CUSTOMER ENERGY SPECIALIST [facility] & CHILD [facility] 1.2.840.114 350.1.13.10 4.2.7.2.686 [id number] 107 [id number] [facility] 2019-09-25 00:00:00 2019-09-25 00:00:00 Refill Tushar Lan [facility] CUSTOMER ENERGY SPECIALIST [facility] & CHILD [facility] 1.2.840.114 350.1.13.10 4.2.7.2.686 [id number] [facility] 2019-08-19 00:00:00 2019-08-19 00:00:00 Telephone Tushar Lan [facility] CUSTOMER ENERGY SPECIALIST [facility] & CHILD [facility] 1..114 350.1.13.10 4.2.7.2.686 [id number] 107 [id number] [facility] 2019-08-16 00:00:00 2019-08-16 00:00:00 Case Management Selam Alves [facility] CUSTOMER ENERGY SPECIALIST [facility] & CHILD [facility] 1..114 350.1.13.10 4.2.7.2.686 [id number] [facility] 2019-08-15 10:43:37 2019-08-15 11:14:30 Office Visit Provider, Selam Gallegos [facility] CUSTOMER ENERGY SPECIALIST [facility] & CHILD [facility] 1.84.114 350.1.13.10 4.2.7.2.686 [id number] [facility] 2019-08-15 10:45:00 2019-08-15 10:45:00 Outpatient R SELAM ALVES [facility] [id number] [facility] 2019-07-23 00:00:00 2019-07-23 00:00:00 Telephone Tushar Lan [facility] CUSTOMER ENERGY SPECIALIST [facility] 1..114 350.1.13.10 4.2.7.2.686 [id number] 107 [id number] [facility] 2019-07-19 00:00:00 2019-07-19 00:00:00 Orders Only Doctor Unassigned, [place] [facility] 1..114 350.1.13.10 4.2.7.2.686 [id number] [facility] 2019-07-08 07:39:54 2019-07-08 09:35:12 Telemedici ne Visit Tushar Lan [facility] CUSTOMER ENERGY SPECIALIST [facility] & CHILD [facility] 1.2.840.114 350.1.13.10 4.2.7.2.686 [id number] [facility] 2019-07-08 09:30:00 2019-07-08 09:30:00 Outpatient R TUSHAR LAN [facility] [id number] [facility] 2019-07-05 00:00:00 2019-07-05 00:00:00 Telephone Tushar Lan [facility] CUSTOMER ENERGY SPECIALIST [facility] & CHILD [facility] 1.2.840.114 350.1.13.10 4.2.7.2.686 [id number] [facility] 2019-04-29 00:00:00 2019-04-29 00:00:00 Telephone Tushar Lan [facility] CUSTOMER ENERGY SPECIALIST [facility] CHILD [facility] 1.2.840.114 350.1.13.10 4.2.7.2.686 [id number] [facility] 2019-04-01 00:00:00 2019-04-01 00:00:00 Telephone Brynbernyjohnathan Tushar Lund [facility] CUSTOMER ENERGY SPECIALIST [facility] CHILD [facility] 1.2.840.114 350.1.13.10 4.2.7.2.686 [id number] [facility] 2019 10:39:31 2019 11:16:49 Office Visit Tushar Lan [facility] CUSTOMER ENERGY SPECIALIST [facility]ILD [facility] 1.2.840.114 350.1.13.10 4.2.7.2.686 [id number] [facility] 2019 00:00:00 2019 00:00:00 Orders Only Doctor Unassigned, [place] [facility] 1.2.840.114 350.1.13.10 4.2.7.2.686 [id number] [facility] 2018-12-20 09:37:41 2018-12-20 10:39:11 Office Visit Tushar Lan 1.2.840.1 82449.1.1 3.104.2.7 [id number] [facility] 2018-12-20 00:00:00 2018-12-20 00:00:00 Telephone Tushar Lan 1.2.840.1 [id number] 3.104.2.7 [id number] [facility] 2018-12-20 00:00:00 2018-12-20 00:00:00 Orders Only Doctor Unassigned, [place] 1.2.840.1 20168.1.1 3.104.2.7 [id number] [facility] Results Test Description Test Time Test Comments Results Result Co mments Source [facility] [id number] 13:42:00* Test Item Value Reference Range Interpretation Comme nts POCT PREG (test code = 1605) Negative On board controls acceptable with C Line (test code = 3574) Yes POCT PREG LOT # (test code = 3575) [id number] POCT PREG TEST DATE ( test code = 3576) 01/14/2025 [facility] [id number] 08:10:00* Test Item Value Reference Range Interpretation Comme nts POCT PREG (test code = 1605) Negative On board controls acceptable with C Line (test code = 3574) Yes POCT PREG LOT # (test code = 3575) [id number] POCT PREG TEST DATE ( test code = 3576) 2024-07-06 Lab Interpretation (test cod e = 94362-1) [facility] (99780)2023-08-27 02:51:02* Test Item Value Reference Range Interpretation Comme nts NA (test code = 7596622501) 139 mmol/L 135-145 K (test code = 7887474750) 3.7 mmol/L 3.5-5.0 CL (test code = 8154418000) 104 mmol/L 98-108 CO2 TOTAL (test code = 1826342884) 29 mmol/L 23-31 AGAP (test code = 5090994917) 6 2-16 BUN (test code = 2877495059) 15 mg/dL 7-23 GLUCOSE (test code = 6017756905) 93 mg/dL 70-110 CREATININE (test code = 2160-0) 0.77 mg/dL 0.50-1.04 TOTAL BILI (test code = 6168114915) 0.9 mg/dL 0.1-1.1 CALCIUM (test code = 3876026403) 9.1 mg/dL 8.6-10.6 T PROTEIN (test code = 1602967157) 7.8 g/dL 6.3-8.2 ALBUMIN (test code = 6145908846) 4.3 g/dL 3.5-5.0 ALK PHOS (test code = 6117467783) 50 U/L 34-122 ALTv (test code = 1742-6) 10 U/L 5-35 AST(SGOT) (test code = 4245021056) 40 U/L 13-40 eGFR (test code = 59860-1) 112.7 mL/min/1.73m2 CKD-EPI eGFR (20 21). Assuming creatinine has been stable day-to-day for at least three months, the eGFR indicates Category G1 (>= 90 mL/min/1.73 m2) [facility] WITH [id number] 02:25:57* Test Item Value Reference Range Interpretation [...] g/dL 31.6-35.1 L RDW-SD (test code = 37621-7) 43.6 fL 39.0-49.9 RDW-CV (test code = 788-0) 16.1 % 12.0-15.5 H PLT (test code = 777-3) 295 166-358 MPV (test code = 75404-8) 10.7 fL 9.5-12.9 NRBC/100 WBC (test code = 5659383850) 0.0 0.0-10.0 NRBC x10^3 (test code = 9850397887) See_Comment [Automated messa ge] The system which generated this result transmitted reference range: 10*3/?L. The reference range was not used to interpret this result as normal/abnormal. GRAN MAT (NEUT) % (test code = 770-8) 49.4 % IMM GRAN % (test code = 3944970406) 0.10 % LYMPH % (test code = 736-9) 38.0 % MONO % (test code = 5905-5) 7.2 % EOS % (test code = 713-8) 4.3 % BASO % (test code = 706-2) 1.0 % GRAN MAT x10^3(ANC) (test code = 9818220446) 3.36 10*3/uL 1.88-7.09 IMM GRAN x10^3 (test code = 0457526332) 0.00-0.06 LYMPH x10^3 (test code = 731-0) 2.59 10*3/uL 1.32-3.29 MONO x10^3 (test code = 742-7) 0.49 10*3/uL 0.33-0.92 EOS x10^3 (test code = 711-2) 0.29 10*3/uL 0.03-0.39 BASO x10^3 (test code = 704-7) 0.07 10*3/uL 0.01-0.07 Lab Interpretation (test code = 49708-9) [facility]normal [facility] [id number] 13:41:00* Test Item Value Reference Range Interpretation Comme nts POCT PREG (test code = 1605) Negative On board controls acceptable with C Line (test code = 3574) Yes POCT PREG LOT # (test code = 3575) POCT PREG TEST DATE ( test code = 3576) [facility] [id number] 21:53:00* Test Item Value Reference Range Interpretation Comme nts POCT PREG (test code = 1605) Negative On board controls acceptable with C Line (test code = 3574) Yes POCT PREG LOT # (test code = 3575) POCT PREG TEST DATE ( test code = 3576) [facility] [id number] 21:53:00* Test Item Value Reference Range Interpretation Comme nts POCT PREG (test code = 1605) Negative On board controls acceptable with C Line (test code = 3574) Yes POCT PREG LOT # (test code = 3575) POCT PREG TEST DATE ( test code = 3576) [facility] [id number] 22:45:00* Test Item Value Reference Range Interpretation Comme nts POCT PREG (test code = 1605) Negative On board controls acceptable with C Line (test code = 3574) Yes POCT PREG LOT # (test code = 3575) POCT PREG TEST DATE ( test code = 3576) [facility] [id number] 22:45:00* Test Item Value Reference Range Interpretation Comme nts POCT PREG (test code = 1605) Negative On board controls acceptable with C Line (test code = 3574) Yes POCT PREG LOT # (test code = 3575) POCT PREG TEST DATE ( test code = 3576) [facility] with [id number] 11:42:42* Test Item Value Reference Range Interpretation [...] g/dL 31.6-35.1 L RDW-SD (test code = 10467-0) 38.7 fL 39.0-49.9 L RDW-CV (test code = 788-0) 15.1 % 12.0-15.5 PLT (test code = 777-3) 338 See_Comment [Automated messa ge] The system which generated this result transmitted reference range: 166 - 358 10*3/?L. The reference range was not used to interpret this result as normal/abnormal. MPV (test code = 33771-2) 10.1 fL 9.5-12.9 NRBC/100 WBC (test code = 4773159496) 0.0 See_Comment [Automated Plivo ssage] The system which generated this result transmitted reference range: 0.0 - 10.0 /100 WBCs. The reference range was not used to interpret this result as normal/abnormal. NRBC x10^3 (test code = 0983363039) See_Comment [Automated Paracosma ge] The system which generated this result transmitted reference range: 10*3/?L. The reference range was not used to interpret this result as normal/abnormal. GRAN MAT (NEUT) % (test code = 770-8) 72.3 % IMM GRAN % (test code = 1454239665) 0.90 % LYMPH % (test code = 736-9) 18.3 % MONO % (test code = 5905-5) 5.8 % EOS % (test code = 713-8) 2.5 % BASO % (test code = 706-2) 0.2 % GRAN MAT x10^3(ANC) (test code = 2781326659) 7.24 10*3/uL 1.88-7.09 H IMM GRAN x10^3 (test code = 6689795548) 0.09 10*3/uL 0.00-0.06 H LYMPH x10^3 (test code = 731-0) 1.83 10*3/uL 1.32-3.29 MONO x10^3 (test code = 742-7) 0.58 10*3/uL 0.33-0.92 EOS x10^3 (test code = 711-2) 0.25 10*3/uL 0.03-0.39 BASO x10^3 (test code = 704-7) 0.01-0.07 Lab Interpretation (test code = 21554-9) [facility]normal [facility] (08345)2022-07-25 03:39:13* Test Item Value Reference Range Interpretation Comme nts NA (test code = 3864411781) 138 mmol/L 135-145 K (test code = 8129693058) 3.1 mmol/L 3.5-5.0 L CL (test code = 5239134551) 109 mmol/L 98-108 H CO2 TOTAL (test code = 3415617050) 21 mmol/L 23-31 L AGAP (test code = 2997536071) 8 2-16 BUN (test code = 2710968372) 12 mg/dL 7-23 GLUCOSE (test code = 9395338037) 100 mg/dL 70-110 CREATININE (test code = 9911737994) 0.44 mg/dL 0.50-1.04 L TOTAL BILI (test code = 1732135848) 1.1 mg/dL 0.1-1.1 CALCIUM (test code = 2042482376) 8.1 mg/dL 8.6-10.6 L T PROTEIN (test code = 4410582116) 6.1 g/dL 6.3-8.2 L ALBUMIN (test code = 5745289278) 2.9 g/dL 3.5-5.0 L ALK PHOS (test code = 5054535757) 101 U/L 34-122 ALTv (test code = 1742-6) 11 U/L 5-35 AST(SGOT) (test code = 0961472986) 19 U/L 13-40 eGFR (test code = 2838651679) 182.3 mL/min/1.73m2 ARGENIS (test code = ARGENIS) [...] imaging tests). Lab Interpretation (test code = 20213-9) Abnormal [facility] WITH [id number] 03:29:32* Test Item Value Reference Range Interpretation Comme nts WBC (test code = 6690-2) 9.87 See_Comment [Automated Paracosma [employer]] The system which generated this result transmitted reference range: 4.30 - 11.10 10*3/?L. The reference range was not used to interpret this result as normal/abnormal. RBC (test code = 789-8) 3.57 See_Comment L [Automated Parac[employer]ma [employer]] The system which generated this result transmitted [...] 31.8 g/dL 31.6-35.1 RDW-SD (test code = 85581-6) 38.3 fL 39.0-49.9 L RDW-CV (test code = 788-0) 15.1 % 12.0-15.5 PLT (test code = 777-3) 279 See_Comment [Automated messa ge] The system which generated this result transmitted reference range: 166 - 358 10*3/?L. The reference range was not used to interpret this result as normal/abnormal. MPV (test code = 43070-5) 10.3 fL 9.5-12.9 NRBC/100 WBC (test code = 4053777771) 0.0 See_Comment [Automated me ssage] The system which generated this result transmitted reference range: 0.0 - 10.0 /100 WBCs. The reference range was not used to interpret this result as normal/abnormal. NRBC x10^3 (test code = 7789164346) See_Comment [Automated Paracosma ge] The system which generated this result transmitted reference range: 10*3/?L. The reference range was not used to interpret this result as normal/abnormal. GRAN MAT (NEUT) % (test code = 770-8) 80.7 % IMM GRAN % (test code = 6178007768) 0.70 % LYMPH % (test code = 736-9) 11.3 % MONO % (test code = 5905-5) 4.9 % EOS % (test code = 713-8) 2.2 % BASO % (test code = 706-2) 0.2 % GRAN MAT x10^3(ANC) (test code = 7744515981) 7.96 10*3/uL 1.88-7.09 H IMM GRAN x10^3 (test code = 7517288347) 0.07 10*3/uL 0.00-0.06 H LYMPH x10^3 (test code = 731-0) 1.12 10*3/uL 1.32-3.29 L MONO x10^3 (test code = 742-7) 0.48 10*3/uL 0.33-0.92 EOS x10^3 (test code = 711-2) 0.22 10*3/uL 0.03-0.39 BASO x10^3 (test code = 704-7) 0.01-0.07 Lab Interpretation (test code = 70240-5) [facility]normal [facility] IMMUNE [id number] 00:24:07* Test Item Value Reference Range Interpretation Comme nts RHIG CANDIDATE? (test code = 5188) No- see comment Patient is not a candidate for RhIg- Patient is Rh Positive.Performed at [facility] Laboratory Services - [facility] Blood [address] [place] [id number] Free: [phone] No. [id number] [facility] with Ndqmxligehea2095-39-38 11:22:51* Test Item Value Reference Range Interpretation [...] g/dL 31.6-35.1 L RDW-SD (test code = 33119-7) 37.8 fL 39.0-49.9 L RDW-CV (test code = 788-0) 14.6 % 12.0-15.5 PLT (test code = 777-3) 216 See_Comment [Automated message] The system which generated this result transmitted reference range: 166 - 358 10*3/?L. The reference range was not used to interpret this result as normal/abnormal. MPV (test code = 92648-6) 10.8 fL 9.5-12.9 NRBC/100 WBC (test code = 4680798727) 0.0 See_Comment [Automated message] The system which generated this result transmitted reference range: 0.0 - 10.0 /100 WBCs. The reference range was not used to interpret this result as normal/abnormal. NRBC x10^3 (test code = 9497815250) See_Comment [Automated message] The system which generated this result transmitted reference range: 10*3/?L. The reference range was not used to interpret this result as normal/abnormal. SEG % (test code = 40190-5) 83 % 33-76 H BAND % (test code = 48374-4) 9 % 0-1 H LYMPH % (test code = 66376-4) 8 % 14-54 L ANC (test code = 753-4) 20.01 10*3/uL 1.88-7.09 H Lab Interpretation (test code = 27591-8) Abnormal [facility] with Roylwiydsglg6597-44-44 11:22:51* Test Item Value Reference Range Interpretation [...] g/dL 31.6-35.1 L RDW-SD (test code = 86724-1) 37.8 fL 39.0-49.9 L RDW-CV (test code = 788-0) 14.6 % 12.0-15.5 PLT (test code = 777-3) 216 See_Comment [Automated message] The system which generated this result transmitted reference range: 166 - 358 10*3/?L. The reference range was not used to interpret this result as normal/abnormal. MPV (test code = 20564-2) 10.8 fL 9.5-12.9 NRBC/100 WBC (test code = 4831852466) 0.0 See_Comment [Automated message] The system which generated this result transmitted reference range: 0.0 - 10.0 /100 WBCs. The reference range was not used to interpret this result as normal/abnormal. NRBC x10^3 (test code = 5856592710) See_Comment [Automated message] The system which generated this result transmitted reference range: 10*3/?L. The reference range was not used to interpret this result as normal/abnormal. SEG % (test code = 67389-8) 83 % 33-76 H BAND % (test code = 96392-3) 9 % 0-1 H LYMPH % (test code = 02001-1) 8 % 14-54 L ANC (test code = 753-4) 20.01 10*3/uL 1.88-7.09 H Lab Interpretation (test code = 47371-0) Abnormal [facility] URINALYSIS W SPECIFIC [id number] 19:23:00* Test Item Value Reference Range Interpretation [...] APPEAR (test code = 3267) . [facility] URINALYSIS W SPECIFIC [id number] 19:48:00* Test Item Value Reference Range Interpretation [...] APPEAR (test code = 3267) . [facility] URINALYSIS W SPECIFIC [id number] 18:04:00* Test Item Value Reference Range Interpretation [...] code = 3267) . [facility] with Foqytwhluply1613-48-38 04:55:42* Test Item Value Reference Range Interpretation [...] 32.4 g/dL 31.6-35.1 RDW-SD (test code = 25097-7) 39.8 fL 39.0-49.9 RDW-CV (test code = 788-0) 13.8 % 12.0-15.5 PLT (test code = 777-3) 287 See_Comment [Automated messa ge] The system which generated this result transmitted reference range: 166 - 358 10*3/?L. The reference range was not used to interpret this result as normal/abnormal. MPV (test code = 65295-2) 11.0 fL 9.5-12.9 NRBC/100 WBC (test code = 7302881024) 0.0 See_Comment [Automated me ssage] The system which generated this result transmitted reference range: 0.0 - 10.0 /100 WBCs. The reference range was not used to interpret this result as normal/abnormal. NRBC x10^3 (test code = 9311994835) See_Comment [Automated messa ge] The system which generated this result transmitted reference range: 10*3/?L. The reference range was not used to interpret this result as normal/abnormal. GRAN MAT (NEUT) % (test code = 770-8) 68.4 % IMM GRAN % (test code = 0062823703) 1.10 % LYMPH % (test code = 736-9) 19.6 % MONO % (test code = 5905-5) 6.5 % EOS % (test code = 713-8) 3.8 % BASO % (test code = 706-2) 0.6 % GRAN MAT x10^3(ANC) (test code = 6198378467) 8.56 10*3/uL 1.88-7.09 H IMM GRAN x10^3 (test code = 1805683385) 0.14 10*3/uL 0.00-0.06 H LYMPH x10^3 (test code = 731-0) 2.46 10*3/uL 1.32-3.29 MONO x10^3 (test code = 742-7) 0.82 10*3/uL 0.33-0.92 EOS x10^3 (test code = 711-2) 0.47 10*3/uL 0.03-0.39 H BASO x10^3 (test code = 704-7) 0.07 10*3/uL 0.01-0.07 Lab Interpretation (test code = 09699-9) Abnormal [facility] 1 Hour Post Zkpmoxxo2001-09-08 04:31:20* Test Item Value Reference Range Interpretation Comme nts GLUC 1 HR (test code = 0855282485) 72 mg/dL 120-170 L Lab Interpretation (test cod e = 83980-0) Abnormal [facility] W SPECIFIC [id number] 20:18:00* Test Item Value Reference Range Interpretation [...] APPEAR (test code = 3267) . [facility] URINALYSIS W SPECIFIC [id number] 20:18:00* Test Item Value Reference Range Interpretation [...] APPEAR (test code = 3267) . [facility] URINALYSIS W SPECIFIC [id number] 17:24:00* Test Item Value Reference Range Interpretation [...] APPEAR (test code = 3267) . [facility] URINALYSIS W SPECIFIC [id number] 16:03:00* Test Item Value Reference Range Interpretation [...] APPEAR (test code = 3267) . [facility] URINALYSIS W SPECIFIC [id number] 17:19:00* Test Item Value Reference Range Interpretation [...] APPEAR (test code = 3267) . [facility] URINALYSIS W SPECIFIC [id number] 17:19:00* Test Item Value Reference Range Interpretation [...] APPEAR (test code = 3267) . [facility] URINALYSIS W SPECIFIC [id number] 16:39:00* Test Item Value Reference Range Interpretation [...] POCT U APPEAR (test code = 3267) [facility] URINALYSIS W SPECIFIC [id number] 19:37:00* Test Item Value Reference Range Interpretation [...] APPEAR (test code = 3267) . [facility] URINALYSIS W SPECIFIC [id number] 15:33:00* Test Item Value Reference Range Interpretation [...] APPEAR (test code = 3267) . [facility] [id number] 14:34:00* Test Item Value Reference Range Interpretation Comme nts POCT PREG (test code = 1605) Positive On board controls acceptable with C Line (test code = 3574) Yes POCT PREG LOT # (test code = 3575) POCT PREG TEST DATE ( test code = 357) [facility] URINALYSIS W/O SPECIFIC [id number] 14:34:00* Test Item Value Reference Range Interpretation [...] = 3257) negative Negative - Negati ve [facility] [id number] 14:34:00* Test Item Value Reference Range Interpretation Comme nts POCT PREG (test code = 1605) Positive On board controls acceptable with C Line (test code = 3574) Yes POCT PREG LOT # (test code = 3575) POCT PREG TEST DATE ( test code = 3576) [facility] URINALYSIS W/O SPECIFIC [id number] 14:34:00* Test Item Value Reference Range Interpretation [...] = 3257) negative Negative - Negati ve [facility] [id number] 14:31:00* Test Item Value Reference Range Interpretation Comme nts POCT PREG (test code = 1605) Positive On board controls acceptable with C Line (test code = 3574) Yes POCT PREG LOT # (test code = 3575) POCT PREG TEST DATE ( test code = 3576) [facility] [id number] 18:26:00* Test Item Value Reference Range Interpretation Comme nts POCT PREG (test code = 1605) Negative On board controls acceptable with C Line (test code = 3574) Yes POCT PREG LOT # (test code = 3575) POCT PREG TEST DATE (test code = 3576) ARGENIS (test code = ARGENIS) accurate developme nt and interpretation of all internal controls [facility] Notes Date/Time Note Provider Source 2024-01-19 11:05:34 All information was provided to patient and she verbalized understanding. No further needs were voiced. [facility] Eunice Welch LVN [facility] 2024-01-18 15:37:00 Monitor without the medicine as below. [facility] 2024-01-18 15:18:38 Called patient, she reports her BELL CAPTAIN wants her off of HCTZ so she can take the control prescribed, she does want the medication changed as patients blood pressure is running 104/90 when she check it at home.Please review and advise ESS PROJECT ENGINEER Apoorva Souza MA [facility] 2024-01-17 08:03:16 Recommend monitoring bp without medicine. If persistently > 130/80 with monitoring she can take 1/2 tab of the hctz and follow-up. If she has any chest pain, dizziness, passing out, weakness or shortness of breath she should go to the ER for evaluation. [facility] 2024-01-16 09:39:02 Pt states the rx is causing her BP to drop, she would like to change it. Pt states when it drops the reading is under 100/ under 80. Pt stopped taking the medication 2 weeks ago. RX: hydroCHLOROthiazide 25 mg tablet Please Advise. [facility] [address] [place] [id number] [facility] Meg Tom [facility] 2023-11-09 16:06:54 Attempted to contact patient, left message on voicemail MIGUE Robb has placed orders for you to have more lab work. Apoorva Souza MA [facility] 2023-11-02 09:15:00 Images from the original note were not included. Venipuncture collection performed by clean technique on the right anticubitus. Total of 1 attempts were made. Slight pressure and a bandage/dressing were applied to the site(s). The patient experienced no complications. The following specimens were processed according to instructions and sent to [facility] laboratories per lab order on 11/02/2023 : LT BLUE SST 2 RED LAV 2 PPT DK GREEN (LiHep) DK GREEN (SodH) MORA DK BLUE (K2) DK BLUE (S) ACD Blood Culture NIPT/NTD T [facility] 2023-09-19 08:26:48 Noted. T [facility] 2023-09-19 08:13:31 Attempted to contact patient x3 to schedule appointment, left voicemail for patient to contact clinic to schedule. John Sanz [facility] 2023-09-18 14:57:14 Sil Gaytan is a 23 year old female Pt is calling to notify provider that she is having a lot of pain and requesting to schedule IUD removal procedure. Please contact pt at [phone]. Gregg Talbert [facility] 2023-09-17 04:38:26 Pt given printed [...] encouraged to follow up with pcp and senior mortgage loan processor. Advised to seek medical attention for new/prolonged/worsening of symptoms. No adverse reaction to meds given in ER noted upon discharge. Awake, alert oriented, resp reg unlabored, skin w/d, pt leaving amb with steady gait, in no apparent distress. [facility] 2023-09-17 02:10:42 Pt arrives ambulatory to Ed c/o sharp shooting pain from low back pelvis are and down right leg. She reports that she has an IUD that was placed a few weeks ago and believes that this is the reason for the new pains. 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 Medical Decision Making Problems Addressed: Acute low [...] Have A Relationship: PCP - General [address] [facility] [address] Jatin Cruz Specialty: PED-PEDIATRICS Relationship: PCP - Insurance [address] [facility] [address] [facility] [id number] Electronically signed by: Jone Deleon MD 09/17/23 0426 [facility] 2023-08-26 22:33:33 Pt given printed [...] no apparent distress, Mary Ann Ryan RN [facility] 2023-08-26 20:42:59 Pt states " I had my IUD placed on morning, they told if I started clotting really bad to come to the ED. I was to start my period on and I know Im on my period but I don't normally clot with my periods." Carla Navarrete RN [facility] 2023-08-15 16:46:17 Notified the patient of her positive STI results chlamydia. Notified the patient her medication has been sent to her pharmacy on file. Educated patient she should complete the entire course, advised patient to practice safe sex practices and to remain abstinent for at least 1-2 weeks post treatment. Patient desires to have partner treated, call placed to [facility] in [place], [facility] order given for Doxycycline hyclate 100 mg 1 capsule PO BID x 7 days for Name of partner:Kody Rushing :2000 NKDA: Phone number:[phone] Offered std pamphlet for partner education. Patient declinedstd pamphlet to be mailed to partner. Partners address Advised patient on HIV testing if she has not recently been tested. Advised YANICK appointment in 3 months. Pt verbalized understanding. [facility] [employer] 2023-08-15 16:43:01 Sil Gaytan is a 23 year old female Pt returning call T Yelena El [facility] 2023-08-15 16:34:48 2nd attempt to call patient, no answer, left vm. T [facility] 2023-08-15 08:37:49 Attempted to call patient, no answer, left vm. [facility] 2023-08-15 07:25:35 Please make pt aware that she is positive for chlamydia. Rx for doxycycline has been sent to pharmacy. Advise no intercourse until 2 weeks after partner receives treatment. RTC in 3 months for [facility]. [facility] [employer]
--- NOTE | 2024-04-24 00:18 | EDPHYS ---
Physician Documentation [facility] Name: Sil Gaytan Age: 24 yrs Sex: Female : 2000 Arrival Date: 04/23/2024 Time: 23:42 Bed 23 Private MD: ED Physician Magan Fnik HPI: 04/24 00:18 This 24 yrs old Female presents to ER via Unassigned with complaints of Flu ec2 Symptoms. 00:18 Patient arrives today d/t concern for URI signs and symptoms. Reports cough and ec2 congestion, patient with multiple flu positive contacts. Some nausea, no diarrhea symptoms. No difficulty breathing. Historical: - Allergies: 00:38 Codeine; jb4 00:38 PENICILLINS; jb4 00:38 Prednisone; jb4 00:38 Vancomycin; jb4 - PMHx: 00:38 Asthma; Hypertensive disorder; jb4 - PSHx: 00:38 ; jb4 - Immunization history:: Adult Immunizations not up to date. - Infectious Disease History:: Denies. - Social history:: Smoking status: Patient denies any tobacco usage or history of. ROS: 00:19 Constitutional: as per hpi ec2 Exam: 00:19 Constitutional: GEN: NAD Head: atraumatic Eyes: EOMI Ears: External ears are ec2 normal. CV: regular rate LUNGS: no respiratory distress, no wheezes or rales or rhonchi ABD: non-distended SKIN: no evidence of rashes MSK: no evidence of trauma Vital Signs: 00:37 BP 121 / 80; Pulse 108; Resp 16; Pulse Ox 93% on R/A; jb4 MDM: 00:04 Medical Screening Exam initiated ec2 00:19 Data reviewed: vital signs, nurses notes. ED course: Patient with multiple influenza ec2 contacts arrives today for viral symptoms. Examination is revealing for nontoxic individuals otherwise in no acute respiratory distress. Will swab for flu, provide work note as requested and have patient follow-up with PCP. Prescribed patient Zofran for nausea.. 04/24 00:17 Order name: COVID-19 Ag + Flu A+B Ag; Complete Time: 04:15 ec2 Administered Medications: No medications were administered Disposition Summary: 04/24/24 00:17 Discharge Ordered Notes: Location: Home ec2 Condition: Stable ec2 Diagnosis - Viral infection, unspecified ec2 Followup: ec2 - With: Private Physician - When: - Reason: Re-evaluation by your physician Discharge Instructions: - Discharge Summary Sheet ec2 - Viral Illness, Adult ec2 Forms: - Work release form ec2 - Medication Reconciliation Form ec2 - Antibiotic Education ec2 - Prescription Opioid Use ec2 - Patient Portal Instructions ec2 - Leadership Thank You Letter ec2 Prescriptions: - Zofran 4 mg Oral Tablet - take 1 tablet ORAL route every 12 hours As needed; 20 tablet; Refills: 0, ec2 Product Selection Permitted Signatures: Dispatcher [employer] Beau Sanchez RN RN jb4 Magan Fink MD MD ec2 Corrections: (The following items were deleted from the chart) 00:17 00:17 COVID-19 Ag + Flu A+B [id number] ordered. EDID EDMS
--- NOTE | 2024-04-24 00:40 | ER ---
Nurse's Notes [facility] Name: Sil Gaytan Age: 24 yrs Sex: Female : 2000 Arrival Date: 04/23/2024 Time: 23:42 Bed 23 Private MD: Diagnosis: Viral infection, unspecified Presentation: 04/24 00:37 Chief complaint: Patient states: I have had flu like symptoms since monday. Coronavirus jb4 screen: At this time, the client does not indicate any symptoms associated with coronavirus-19. Ebola Screen: No symptoms or risks identified at this time. Initial Sepsis Screen: Does the patient meet any 2 criteria? No. Patient's initial sepsis screen is negative. Does the patient have a suspected source of infection? No. Patient's initial sepsis screen is negative. Risk Assessment: Do you want to hurt yourself or someone else? Patient reports no desire to harm self or others. Onset of symptoms was April 21, 2024. 00:37 Method Of Arrival: Ambulatory jb4 00:37 Acuity: DELMAR 4 jb4 Triage Assessment: 00:38 General: Appears in no apparent distress. uncomfortable, Behavior is calm, cooperative, jb4 appropriate for age. Pain: Denies pain. Neuro: Level of Consciousness is awake, alert, obeys commands, Oriented to person, place, time, situation. Cardiovascular: Patient's skin is warm and dry. Respiratory: Airway is patent Respiratory effort is even, unlabored, Respiratory pattern is regular, symmetrical. Derm: Skin is intact, Skin is pink, warm \T\ dry. Musculoskeletal: Circulation, motion, and sensation intact. Range of motion: intact in all extremities. Historical: - Allergies: 00:38 Codeine; jb4 00:38 PENICILLINS; jb4 00:38 Prednisone; jb4 00:38 Vancomycin; jb4 - PMHx: 00:38 Asthma; Hypertensive disorder; jb4 - PSHx: 00:38 ; jb4 - Immunization history:: Adult Immunizations not up to date. - Infectious Disease History:: Denies. - Social history:: Smoking status: Patient denies any tobacco usage or history of. Screenin:39 [facility] ED Fall Risk Assessment (Adult) History of falling in the last 3 months, jb4 including since admission No falls in past 3 months (0 pts) Confusion or Disorientation No (0 pts) Intoxicated or Sedated No (0 pts) Impaired Gait No (0 pts) Mobility Assist Device Used No (0 pt) Altered Elimination No (0 pt) Score/Fall Risk Level 0 - 2 = Low Risk Oriented to surroundings, Maintained a safe environment. Abuse screen: Denies threats or abuse. Nutritional screening: No deficits noted. Tuberculosis screening: No symptoms or risk factors identified. Assessment: 00:39 Reassessment: see triage note. jb4 Vital Signs: 00:37 BP 121 / 80; Pulse 108; Resp 16; Pulse Ox 93% on R/A; jb4 ED Course: 04/23 23:43 Patient arrived in ED. jj6 23:50 Magan Fink MD is Attending Physician. ec2 04/24 00:28 COVID swab sent to lab. Flu and/or RSV swab sent to lab. vk 00:38 Triage completed. jb4 00:38 Arm band placed on right wrist. jb4 00:39 No provider procedures requiring assistance completed. Patient did not have IV access jb4 during this emergency room visit. 00:39 Patient has correct armband on for positive identification. Bed in low position. Call jb4 light in reach. Side rails up X 1. Provided Education on: discharge instructions.. Administered Medications: No medications were administered Medication: 00:39 VIS not applicable for this client. jb4 Outcome: 00:17 Discharge ordered by . ec2 00:39 Discharged to home ambulatory, jb4 00:39 Condition: stable 00:39 Discharge instructions given to patient, Instructed on discharge instructions, follow up and referral plans. medication usage, Demonstrated understanding of instructions, follow-up care, medications, Prescriptions given X 1, 00:40 Patient left the ED. jb4 Signatures: Beau Tanner, RN RN jb4 Selam Wilson jj6 Magan Fink MD MD ec2 Hetal Santos
[2024-04-24 00:59] LABS: Influenza A Ag Positive; Influenza B Ag Negative; SARS-CoV-2 Antigen Rapid Res Negative (Negative)
[2024-04-24 01:01] VITALS: BP 121/80; O2SAT 93
== END 2024-04-24 00:40 | disposition home or self-care (01) ==
LOC: ER 23:42
DX: B34.9 Viral infection, unspecified (principal); Z11.52 Encounter for screening for COVID-19
CPT/HCPCS: 36415; 87428; 99283

== ENCOUNTER 2024-06-02 22:48 | Emergency (ER) | payer OTHER ==
--- OUTSIDE RECORDS SUMMARY | 2024-06-02 23:05 | XMS REPORT | Continuity of Care Document ---
Author Name Unknown Address [address] [facility] [address] [place] [address] Organization [facility] [place] Address [address] [facility] [place] [address] Care Team Providers Care Ingredient Handler Name Role Phone PCP, PATIENT DOES NOT HAVE A Primary Care Physic eliseo Unavailable KASEY BLANCO Attending Clinician KASEY Petty Attending Clinician NAVA Charlton Attending Clinician Unavailable Garry Nava JASON Attending Clinician [phone] Jennifer Rahman Attending Clinician [phone] Doctor Unassigned, Cambalache Attending Clinician U navailWOLFGANG Sow Attending Clinician WOLFGANG Conley Attending Clinician Unavaila ble Wolfgang Smalls MD Attending Clinician + [phone] [facility] Attending Clinician Unavaila ble Lab, Ang - Db Attending Clinician Unavailable JENNIFER GOMEZ Attending Clinician Unavailable JONE DELEON Attending Clinician Unavailable JONE DELEON Attending Clinician Unavailable NARDA BLACKWELL Attending Clinician Unavailable AKINTUSHAR YOUSSEF Attending Clinician Unavail able ANTONETTE LUQUE Attending Clinician Unavaila ble Lab, Ang-Rmchp Attending Clinician Unavailable Akinsijohnathan WHTushar JASON Attending Clinician + Doctor Unassigned, Cambalache Attending Clinician U navailable MOSHE AGOSTO Attending Clinician Unavailable Visit, Ang-Rmchp Nurse Attending Clinician Unava ilable HETAL NORRIS Attending Clinician Unavailable Jr ANDRES, Hetal Mario Attending Clinician [phone] Avtar RN, Patt Attending Clinician Unavailabl AUSTIN Raygoza Attending Clinician Unavailable Maxim ANDRES, Austin Holm Attending Clinician [phone] Antonette Luque CNM Attending Clinician [phone] Risk, Rss-Fgymx-Qz/High Attending Clinician Unav ailable Shereen Sky MD Attending Clinician [phone] SHEREEN SKY Attending Clinician Unavailable Ultrasound, Ang-Mfm Attending Clinician Unavaila ble EDWIN CAGE Attending Clinician Unavailable Edwin Pacheco Attending Clinician + [phone] David Cooper DO Attending Clinician [phone] SARA SNYDER Attending Clinician Unavaila SARA Kauffman Attending Clinician Unavaila ble Provider, Ang-Rmchp Temp Attending Clinician Tika vaprestonble Niki Villa Attending Clinician + [phone] NIKI RALPH Attending Clinician Unavailab JAM Neville Attending Clinician Unavailable MARY ANN CRUMP Attending Clinician Unavailable Ernesto Valente Attending Clinician [phone] ERNESTO PEACOCK Attending Clinician UnavailRosio Warren Attending Clinician [phone] Ida ANDRES, Dylan Sanchez Attending Clinician Maria PALACIOS CRNA, R Attending Clinician Jeffery Dumont DO Attending Clinician Zoltan ANDRES, Radha Attending Clinician [phone] Selam Fields Attending Clinician + [phone] SELAM ALVES Attending Clinician Unavailab KASEY Tolentino Admitting Clinician García ARZOLA, AUSTIN HOLM Admitting Clinician Unavailable HETAL NORRIS Admitting Clinician Unavailable JONE DELEON Admitting Clinician Unavailable Jr ANDRES, Hetal Mario Admitting Clinician [phone] Austin Arzola MD Admitting Clinician [phone] SARA SNYDER Admitting Clinician Unavaila [facility] Payers Payer Name Policy Type Policy Number Effective Date Expirati on Date Source [facility] [id number] 2021 00:00:00 [facility] STAR [id number] 2023 00:00:00 Problems Condition Name Condition Details Condition Category Status Onset Date Resolution Date Last Treatment Date Treating Clinician Comments Source [facility] woman exam Well woman exam Disease Active 7 00:00: 00 [facility] History of anxiety and depression History of anxiety and depression Disease Active 2021-02 0- 00:00: 00 [facility] Asthma during Asthma during Disease Resolve d 2019-02 0-29 00:00: 00 2024-04-15 00:00:00 2024-04-15 08:41:21 [facility] Declines flu vaccine Declines flu vaccine Disease Resolve d 2021-02 0-27 00:00: 00 2023-08-10 00:00:00 2023-08-10 13:43:35 [facility] Overweight Overweight Disease Resolve d 4-13 00:00: 00 2023-08-10 00:00:00 2023-08-10 13:43:38 [facility] Routine follow-up Routine follow-up Disease Resolve d 2022-0 6-16 00:00: 00 2022-09-07 00:00:00 2022-09-07 16:20:16 [facility] induced hypertensi on, antepartum induced hypertensi on, antepartum Disease Resolve d 2022-0 6-02 00:00: 00 2022-08-12 00:00:00 2022-08-12 11:06:28 [facility] state state Disease Resolve d 2022-0 6-02 00:00: 00 2022-08-12 00:00:00 2022-08-12 11:06:26 [facility] Obesity (BMI 30-39.9) Obesity (BMI 30-39.9) Disease Resolve d 2022-0 5-28 00:00: 00 2022-08-12 00:00:00 2022-08-12 11:06:23 [facility] Postoperat chris fever Postoperat chris fever Disease Resolve d 2022-0 5-28 00:00: 00 2022-08-12 00:00:00 2022-08-12 11:06:25 [facility] premature rupture of membranes (PPROM) with onset of labor within 24 hours of rupture in third trimester, antepartum premature rupture of membranes (PPROM) with onset of labor within 24 hours of rupture in third trimester, antepartum Disease Resolve d 2022-0 5-25 00:00: 00 2022-08-12 00:00:00 2022-08-12 11:06:31 [facility] 36 weeks gestation of 36 weeks gestation of Disease Resolve d 2022-0 5-25 00:00: 00 2022-08-12 00:00:00 2022-08-12 11:06:07 [facility] Liveborn , of mckeon , born in hospital by delivery Liveborn infant, of mckeon , born in hospital by delivery Disease Resolve d 2022-0 5-25 00:00: 00 2022-08-12 00:00:00 2022-08-12 11:06:18 [facility] UTI in UTI in Disease Resolve d 2022-0 5-24 00:00: 00 2022-08-12 00:00:00 2022-08-12 11:06:35 Overview: Formattin g of this note might be different from the original. Per Dr.Adum mora sent and patient notified [facility] Supervisio n of high-risk Supervisio n of high-risk Disease Resolve d 2022-0 3-02 00:00: 00 2022-08-12 00:00:00 2022-08-12 11:06:33 [facility] Multiparit y Multiparit y Disease Resolve d 2022-0 3-02 00:00: 00 2022-08-12 00:00:00 2022-08-12 11:06:20 [facility] History of pre-eclamp raymond in prior , currently History of pre-eclamp raymond in prior , currently Disease Resolve d 2021-1 0-27 00:00: 00 2022-08-12 00:00:00 2022-08-12 11:06:12 [facility] related nausea, antepartum related nausea, antepartum Disease Resolve d 2021-1 0-27 00:00: 00 2022-08-12 00:00:00 2022-08-12 11:06:30 [facility] History of delivery, currently History of delivery, currently Disease Resolve d 2021-1 0-13 00:00: 00 2022-08-12 00:00:00 2022-08-12 11:06:13 [facility] Missed menses Missed menses Disease Resolve d 2021-1 0-13 00:00: 00 2021-12-23 00:00:00 2021-12-23 09:45:24 [facility] Other general counseling and advice for contracept chris management Other general counseling and advice for contracept chris management Disease Resolve d 2021-0 8-02 00:00: 00 2021-12-23 00:00:00 2021-12-23 09:45:16 [facility] Elevated blood pressure reading without diagnosis of hypertensi on Elevated blood pressure reading without diagnosis of hypertensi on Disease Resolve d 2021-0 8-02 00:00: 00 2021-12-23 00:00:00 2021-12-23 09:45:21 [facility] Encounter for surveillan ce of contracept chris pills Encounter for surveillan ce of contracept chris pills Disease Resolve d 2020-02 1- 00:00: 00 2021-12-23 00:00:00 2021-12-23 09:45:20 [facility] with inconclusi ve viability, single or unspecifie d fetus with inconclusi ve viability, single or unspecifie d fetus Disease Resolve d 2020-0 4-13 00:00: 00 2021-12-23 00:00:00 2021-12-23 09:45:15 [facility] with inconclusi ve viability, single or unspecifie d fetus with inconclusi ve viability, single or unspecifie d fetus Disease Resolve d 0 4-13 00:00: 00 2021-12-23 00:00:00 2021-12-23 09:45:15 [facility] Well woman exam Well woman exam Disease Resolve d 0 7-29 00:00: 00 2021-01-18 00:00:00 2021-01-18 16:29:36 [facility] care and examinatio n of lactating mother care and examinatio n of lactating mother Disease Resolve d 0 6-22 00:00: 00 2021-01-18 00:00:00 2021-01-18 16:29:35 [facility] Stress at home Stress at home Disease Resolve d 2019-02 1-24 00:00: 00 2021-01-18 00:00:00 2021-01-18 16:29:33 [facility] Depression affecting Depression affecting Disease Resolve d 2019-02 0-29 00:00: 00 2021-01-18 00:00:00 2021-01-18 16:29:31 [facility] premature rupture of membranes with onset of labor within 24 hours of rupture in third trimester premature rupture of membranes with onset of labor within 24 hours of rupture in third trimester Disease Resolve d 2020-0 5-31 00:00: 00 2020-08-18 00:00:00 2020-08-18 13:53:11 [facility] Liveborn , of mckeon , born in hospital by vaginal delivery Liveborn infant, of mckeon , born in hospital by vaginal delivery Disease Resolve d 2020-0 5-31 00:00: 00 2020-08-18 00:00:00 2020-08-18 13:53:14 [facility] Severe pre-eclamp raymond in third trimester Severe pre-eclamp raymond in third trimester Disease Resolve d 2020-0 5-30 00:00: 00 2020-08-18 00:00:00 2020-08-18 13:53:09 [facility] 35 weeks gestation of 35 weeks gestation of Disease Resolve d 2020-0 5-30 00:00: 00 2020-08-18 00:00:00 2020-08-18 13:53:19 [facility] uterine contractio ns in third trimester, antepartum uterine contractio ns in third trimester, antepartum Disease Resolve d 2020-0 5-30 00:00: 00 2020-08-18 00:00:00 2020-08-18 13:53:21 [facility] Back pain affecting in third trimester Back pain affecting in third trimester Disease Resolve d 2020-0 5-11 00:00: 00 2020-08-18 00:00:00 2020-08-18 13:53:17 [facility] Chlamydia infection affecting Chlamydia infection affecting Disease Resolve d 2019-1 0-30 00:00: 00 2020-08-18 00:00:00 2020-08-18 13:53:23 [facility] High risk teen in second trimester High risk teen in second trimester Disease Resolve d 2020-1 0-29 00:00: 00 2020-07-26 00:00:00 2020-07-26 17:32:33 [facility] Asthma Asthma Disease Resolve d 2019-0 1-24 00:00: 00 2020-04-23 00:00:00 2020-04-23 15:56:52 [facility] Refused influenza vaccine Refused influenza vaccine Disease Resolve d 2019-02 00:00: 00 2020-02-18 00:00:00 2020-02-18 14:30:51 [facility] Flu-like symptoms Flu-like symptoms Disease Resolve d 03-22 00:00: 00 2019-12-26 00:00:00 2019-12-26 14:33:40 [facility] Screen for STD (sexually transmitte d disease) Screen for STD (sexually transmitte d disease) Disease Resolve d 2018-02 00:00: 00 2019-12-26 00:00:00 2019-12-26 14:33:36 [facility] Allergies, Adverse Reactions, Alerts Allergy Name Allergy Type Status Severity Reaction(s) Onset Date Inactive Date Treating Clinician Comments Source Codeine Drug Allergy Active Cough 2019-02 00:00: 00 [facility] CODEINE DRUG INGREDI Active COUGH 2019-02 00:00: 00 [facility] Predniso lone Propensi ty to adverse reaction s Active Rash 06-03 00:00: 00 [facility] Penicill ins Propensi ty to adverse reaction s Active Rash 06-03 00:00: 00 [facility] PENICILL INS Drug Class Active Rash 06-03 00:00: 00 [facility] PREDNISO LONE DRUG INGREDI Active Rash 06-03 00:00: 00 [facility] Penicill ins Propensi ty to adverse reaction s Active Rash 06-03 00:00: 00 [facility] Penicill ins Propensi ty to adverse reaction s Active Rash 06-03 00:00: 00 [facility] Social History Social Habit Start Date Stop Date Quantity Comments Source ASSERTION 2021-11-25 00:00:[address] [facility] History SDOH [facility] History SDOH Alcohol Binge [facility] Alcoholic beverage intake 2024-04-15 00:00:00 2024-04-15 00:00:00 Current drinker of alcohol (finding) [facility] Alcohol Comment 2023-11-02 00:00:00 2023-11-02 00:00:[address] [facility] History of Social function 2023-09-21 00:00:00 2023-09-21 00:00:[address] [facility] Alcohol intake 2022-09-07 00:00:00 2022-09-07 00:00:00 Ex-drinker (finding) [facility] Exposure to SARS-CoV-2 (event) 2022-07-11 00:00:00 2022-07-21 10:35:[address] [facility] Tobacco use and exposure 2022-07-21 00:00:00 2022-07-21 00:00:00 Smokeless tobacco non-user [facility] History SDOH Alcohol Frequency 2018-12-20 00:00:00 2018-12-20 00:00:[address] [facility] Sex assigned at 2000 00:00:00 2000 00:00:[address] [facility] Smoking Status Start Date Stop Date Source Never smoked tobacco [facility] Medications Ordered Medication Name Filled Medication Name Start Date Stop Date Current Medication? Ordering Clinician Indication Dosage Frequency Signature (SIG) Comments Components Source norgestimat e-ethinyl estradioL 0.18/0.215/ 0.25 mg-35 mcg (28) tablet 04-15 00:00: 00 Yes [id number] 1{tbl} Take 1 tablet by mouth in the morning. [facility] norgestimat e-ethinyl estradioL 0.18/0.215/ 0.25 mg-35 mcg (28) tablet 2023-02 00:00: 00 04-15 00:00 :00 No [id number] 1{tbl} Take 1 tablet by mouth in the morning. [facility] hydroCHLORO thiazide 25 mg tablet -05 00:00: 00 Yes [id number] 25mg Take 1 tablet by mouth in the morning. [facility] norethindro ne 0.35 mg tablet 09-20 00:00: 00 01-14 00:00 :00 No [id number] 1{tbl} Take 1 tablet by mouth in the morning. [facility] methocarbam oL (ROBAXIN) tablet 500 mg 09-16 08:30: 00 09-16 08:09 :00 No 500mg 500 mg, Oral, ONCE NOW, 1 dose, On 09/17/23 at 0330, Routine [facility] ketorolac (TORADOL) injection 30 mg 09-16 08:30: 00 09-16 08:10 :00 No 30mg 30 mg, Intramuscu lar, ONCE, 1 dose, On 09/17/23 at 0330, Routine [facility] ibuprofen 800 mg tablet 09-16 00:00: 00 11-01 00:00 :00 No [id number] 800mg Take 1 tablet by mouth every 6 (six) hours as needed for Pain (scale 1-3) for up to 30 doses. [facility] methocarbam oL 750 mg tablet 09-16 00:00: 00 09-22 04:59 :00 No [id number] 750mg Take 1 tablet by mouth 4 (four) times daily for 20 doses. [facility] polyethylen e glycol 3350 (MIRALAX) 17 gram powder 09-16 00:00: 00 09-20 04:59 :00 No [id number] 1{packe t} Take 1 Packet by mouth in the morning for 3 days. [facility] acetaminoph en (TYLENOL) tablet 650 mg 08-26 03:15: 00 08-26 03:19 :00 No 650mg 650 mg, Oral, ONCE, 1 dose, On 08/26/23 at 2215, YULY [facility] copper (PARAGARD T 380A) IUD 1 Intra Uterine Device 08-23 14:00: 00 08-23 13:21 :00 No [id number] 1{IUD} 1 Intra Uterine Device, Intrauteri ne, ONCE, 1 dose, On Alissa 08/24/23 at 0900, Routine [facility] doxycycline hyclate 100 mg capsule 08-14 00:00: 00 08-22 04:59 :00 No [id number] 100mg Take 1 capsule by mouth every 12 (twelve) hours for 7 days. [facility] hydroCHLORO thiazide 25 mg tablet 08-09 00:00: 00 11-01 00:00 :00 No [id number] 25mg Take 1 tablet by mouth in the morning. [facility] CEPHALEXIN ORAL 09-07 15:39: 00 11-01 00:00 :00 No Take by mouth 2 (two) times daily. [facility] norethindro ne 0.35 mg tablet 09-07 00:00: 00 09-20 00:00 :00 No [id number] 1{tbl} Take 1 tablet by mouth in the morning. [facility] acetaminoph en (TYLENOL) tablet 650 mg 07-29 13:29: 04 Yes 650mg 650 mg, Oral, Q6HPRN, Starting on Mon07/29/22 at 0829, Until Discontinu ed, Routine, Pain (scale 1-3), Pain (scale 4-6) [facility] labetaloL (NORMODYNE) tablet 200 mg 07-29 06:00: 00 Yes 200mg 200 mg, Oral, Q12H, First dose on Mon07/29/22 at 0100, Until Discontinu ed, Routine [facility] labetaloL 200 mg tablet 07-29 00:00: 00 11-01 00:00 :00 No [id number] 200mg Take 1 tablet by mouth every 12 (twelve) hours. [facility] KCL (KLOR-CON M20) tablet 40 mEq 07-25 06:15: 00 07-25 13:41 :00 No 40meq 40 mEq, Oral, DAILY, 2 doses, First dose on Mon07/25/22 at 0115, Last dose on Mon07/25/22 at 0900, Routine [facility] ferrous sulfate tablet 325 mg 07-25 01:00: 00 Yes 325mg 325 mg, Oral, BID, First dose on Mon07/24/22 at 2000, Until Discontinu ed, Routine [facility] ceFAZolin (ANCEF) 1,000 mg in NaCl 0.9% [...]
D uration of Therapy: Other (see Comments) [facility] rho(D) immune globulin (RHOGAM) syringe 300 mcg 07-24 15:24: 51 Yes 300ug 300 mcg, Intramuscu lar, ONCE, For 1 dose, Conditiona l, Routine [facility] HYDROcodone -acetaminop hen (NORCO 5) 5-325 mg tablet 2 tablet 07-24 15:23: 27 Yes 2{tbl} 2 tablet, Oral, Q6HPRN, Starting on Mon07/24/22 at 1023, Until Discontinu ed, Routine, Pain (scale 7-10), Alternate with Ibuprofen [facility] HYDROcodone -acetaminop hen (NORCO 5) 5-325 mg tablet 1 tablet 07-24 15:23: 22 Yes 1{tbl} 1 tablet, Oral, Q6HPRN, Starting on Mon07/24/22 at 1023, Until Discontinu ed, Routine, Pain (scale 4-6), Alternate with Ibuprofen [facility] diphenhydrA MINE (BENADRYL) injection 25 mg 07-24 15:21: 28 Yes 25mg 25 mg, Slow IV Push, Q6HPRN, Starting on Mon07/24/22 at 102, Until Discontinu ed, Routine, Itching [facility] diphenhydrA MINE (BENADRYL) tablet 25 mg 07-24 15:21: 28 Yes 25mg 25 mg, Oral, Q6HPRN, Starting on Mon07/24/22 at 1021, Until Discontinu ed, Routine, Sleep, Itching [facility] ondansetron (ZOFRAN (PF)) injection 4 mg 07-24 15:21: 28 Yes 4mg 4 mg, Slow IV Push, Q8HPRN, Starting on Mon07/24/22 at 102, Until Discontinu ed, Routine, Nausea and Vomiting (N/V) [facility] bisacodyL (DULCOLAX) suppository 10 mg 07-24 15:21: 28 Yes 10mg 10 mg, Rectal, QDAILYPRN, Starting on Mon07/24/22 at 102, Until Discontinu ed, Routine, Constipati on [facility] simethicone (GAS RELIEF (SIMETHICON E)) chewable tablet 160 mg 07-24 15:21: 28 Yes 160mg 160 mg, Oral, PC+HSPRN, Starting on Mon07/24/22 at 102, Until Discontinu ed, Routine, Gas [facility] docusate (COLACE) capsule 200 mg 07-24 15:21: 28 Yes 200mg 200 mg, Oral, QDAILYPRN, Starting on Mon07/24/22 at 1021, Until Discontinu ed, Routine, Constipati on [facility] magnesium hydroxide (MILK OF MAGNESIA) 400 mg/5 mL suspension 30 mL 07-24 15:21: 28 Yes 30mL 30 mL, Oral, QDAILYPRN, Starting on Mon07/24/22 at 102, Until Discontinu ed, Routine, Constipati on [facility] lactated ringers IV infusion 1,000 mL 07-24 15:21: 07-24 16:25 :00 No 1000mL at 125 mL/hr, 1,000 mL, IV Infusion, PRN, 1 dose, Starting on Mon07/24/22 at 1021, Until Discontinu ed, Routine [facility] 25/iron fum/folic/d betancur (-1 ORAL) 07-23 12:50: 40 07-23 00:00 :00 No Take by mouth. [facility] HYDROcodone -acetaminop hen (NORCO 5) 5-325 mg tablet 1 tablet 07-23 01:41: 26 07-25 01:40 :26 No 1{tbl} 1 tablet, Oral, Q6HPRN, Starting on Mon07/22/22 at 2040, Until Mon07/24/22 at 2039, Routine, Pain (scale 4-6) [facility] Nitrofurant oin&Nit. Macrocryst (MACROBID) 100 mg capsule 100 mg 07-23 01:00: 00 07-30 00:59 :00 No 100mg 100 mg, Oral, BID, 14 doses, First dose (after last modificati on) on Mon07/22/22 at 2000, Last dose on Mon07/29/22 at 0800, Routine
Reason for Anti-Infec tive: Documented Infection< br>Documen brendan Infection Site: Urine
D uration of Therapy: 7 days [facility] ibuprofen 600 mg tablet 07-23 00:00: 00 Yes [id number] 600mg Take 1 tablet by mouth every 6 (six) hours as needed (Pain). Take with food or milk. [facility] vitamin w/FA tablet 07-23 00:00: 00 Yes [id number] 1{tbl} Take 1 tablet by mouth in the morning. [facility] vitamin w/FA tablet 07-23 00:00: 00 11-01 00:00 :00 No [id number] 1{tbl} Take 1 tablet by mouth in the morning. [facility] docusate 100 mg capsule 07-23 00:00: 00 11-01 00:00 :00 No [id number] 200mg Take 2 capsules by mouth once daily as needed for Constipati on. [facility] ferrous sulfate 325 mg (65 mg iron) tablet 07-23 00:00: 00 11-01 00:00 :00 No [id number] 325mg Take 1 tablet by mouth in the morning and 1 tablet in the evening. [facility] HYDROcodone -acetaminop hen 5-325 mg tablet 07-23 00:00: 00 07-31 04:59 :00 No [id number] 1{tbl} Take 1 tablet by mouth every 6 (six) hours as needed (Pain scale above 4) for up to 7 days. Do not exceed 3 grams of acetaminop hen in 24 hours. Indication s: acute pain [facility] ibuprofen (IBU) tablet 600 mg 07-22 23:00: 00 Yes 600mg 600 mg, Oral, Q6H, First dose on Mon07/22/22 at 1800, Until Discontinu ed, Routine [facility] acetaminoph en (TYLENOL) tablet 650 mg 07-22 20:00: 00 Yes 650mg 650 mg, Oral, Q6HPRN, Starting on Mon07/22/22 at 1500, Until Discontinu ed, Routine, Pain [facility] acetaminoph en ADULT (OFIRMEV) injection 1,000 mg 07-22 02:00: 00 07-22 15:02 :00 No 1000mg 1,000 mg, IV Infusion, at 400 mL/hr Administer over 15 Minutes, Q6H, 3 doses, First dose (after last modificati on) on Mon07/21/22 at 2100, Last dose on Mon07/22/22 at 0600, Routine
Indicatio n: Perioperat chris Patient [facility] ketorolac (TORADOL) injection 30 mg 07-21 23:00: 00 07-22 16:43 :00 No 30mg 30 mg, Slow IV Push, Q6H, 4 doses, First dose on Mon07/21/22 at 1800, Last dose on Mon07/22/22 at 1200, Routine [facility] lactated ringers IV infusion 1,000 mL 07-21 21:30: 00 07-21 20:12 :06 No 1000mL at 125 mL/hr, 1,000 mL, IV Infusion, ONCE, 1 dose, On Alissa 07/21/22 at 1630, Routine [facility] diphenhydrA MINE (BENADRYL) injection 25 mg 07-21 20:34: 05 Yes 25mg 25 mg, Slow IV Push, Q6HPRN, Starting on Mon07/21/22 at 1534, Until Discontinu ed, Routine, Itching [facility] diphenhydrA MINE (BENADRYL) tablet 25 mg 07-21 20:34: 05 Yes 25mg 25 mg, Oral, Q6HPRN, Starting on Mon07/21/22 at 1534, Until Discontinu ed, Routine, Sleep, Itching [facility] ondansetron (ZOFRAN (PF)) injection 4 mg 07-21 20:34: 05 Yes 4mg 4 mg, Slow IV Push, Q8HPRN, Starting on Mon07/21/22 at 1534, Until Discontinu ed, Routine, Nausea and Vomiting (N/V) [facility] bisacodyL (DULCOLAX) suppository 10 mg 07-21 20:34: 05 Yes 10mg 10 mg, Rectal, QDAILYPRN, Starting on Mon07/21/22 at 1534, Until Discontinu ed, Routine, Constipati on [facility] simethicone (GAS RELIEF (SIMETHICON E)) chewable tablet 160 mg 07-21 20:34: 05 Yes 160mg 160 mg, Oral, PC+HSPRN, Starting on Mon07/21/22 at 1534, Until Discontinu ed, Routine, Gas [facility] docusate (COLACE) capsule 200 mg 07-21 20:34: 05 Yes 200mg 200 mg, Oral, QDAILYPRN, Starting on Mon07/21/22 at 1534, Until Discontinu ed, Routine, Constipati on [facility] magnesium hydroxide (MILK OF MAGNESIA) 400 mg/5 mL suspension 30 mL 07-21 20:34: 05 Yes 30mL 30 mL, Oral, QDAILYPRN, Starting on Alissa 07/21/22 at 1534, Until Discontinu ed, Routine, Constipati on [facility] lactated ringers IV infusion 1,000 mL 07-21 20:34: 05 07-22 00:14 :00 No 1000mL at 125 mL/hr, 1,000 mL, IV Infusion, PRN, 1 dose, Starting on Alissa 07/21/22 at 1534, Until Discontinu ed, Routine [facility] ceFAZolin (ANCEF) 2,000 mg in NaCl 0.9% (NS) 100 mL MINI-BAG 07-21 19:30: 00 07-21 19:07 :00 No 2000mg 2,000 mg, IV Piggyback, ONCE, 1 dose, On Alissa 07/21/22 at 1430, Administer over 30 Minutes, 100 mL
Reas on for Anti-Infec tive: Surgical Prophylaxi s
Surgi lottie Prophylaxi s: Abdominal< br>Duratio n of therapy: within 24 hours of surgery [facility] terbutaline (BRETHINE) injection 0.25 mg 07-21 16:37: 33 07-21 20:41 :35 No .25mg 0.25 mg, Subcutaneo us, Q15MIN PRN, 3 doses, Starting on Mon07/21/22 at 1137, Until Alissa 07/21/22 at 1541, Routine, Tachysysto le with NRFHT [facility] sodium citrate-cit diego acid (BICITRA) 500-334 mg/5 mL solution 30 mL 07-21 16:32: 59 07-21 18:32 :00 No 30mL 30 mL, Oral, PRE-PROCED URE ONCE, 1 dose, Starting on Alissa 07/21/22 at 1132, Until Discontinu ed, Routine, Surgery/Pr ocedure [facility] lactated ringers IV infusion 500 mL 07-21 16:32: 59 07-21 20:41 :35 No 500mL at 999 mL/hr, 500 mL, IV Infusion, PRN - SEE INSTRUCTIO NS, Starting on Alissa 07/21/22 at 1132, Until Alissa 07/21/22 at 1541, Routine [facility] [id number] IV infusion 1,000 mL 07-21 16:32: 59 07-21 20:41 :35 No 1000mL at 1-125 mL/hr, IV Infusion, TITRATE, Starting on Alissa 07/21/22 at 1132, Until Alissa 07/21/22 at 1541, Routine [facility] 25/iron fum/folic/d betancur (-1 ORAL) 07-21 11:32: 19 Yes Take by mouth. [facility] Nitrofurant oin&Nit. Macrocryst 100 mg capsule 07-19 00:00: 00 07-24 00:00 :00 No [id number] 100mg Take 1 capsule by mouth in the morning and 1 capsule in the evening. [facility] 25/iron fum/folic/d betancur (-1 ORAL) 07-17 12:50: 57 Yes Take by mouth. [facility] 25/iron fum/folic/d betancur (-1 ORAL) 07-11 03:19: 16 Yes Take by mouth. [facility] terbutaline (BRETHINE) injection 0.25 mg 07-06 08:45: 00 07-06 07:59 :00 No .25mg 0.25 mg, Subcutaneo us, ONCE, 1 dose, On Mon07/06/22 at 0345, Routine [facility] NaCl 0.9% (NS) bolus infusion 1,000 mL 07-06 06:30: 00 07-06 06:30 :27 No 1000mL at 999 mL/hr, 1,000 mL, IV Infusion, ONCE, 1 dose, On Mon07/06/22 at 0130, STAT [facility] 25/iron fum/folic/d betancur (-1 ORAL) 5-10 05:26: 51 Yes Take by mouth. [facility] metroNIDAZO LE 500 mg tablet 2-16 00:00: 00 04-22 05:59 :00 No [id number] 500mg Take 1 tablet by mouth in the morning and 1 tablet in the evening. Do all this for 7 days. [facility] hydroxyprog esterone(PF ) (KATHLEEN AUTO-INJECT OR) 275 mg/1.1 mL injection 275 mg 03-31 06:00: 00 07-21 04:59 :00 No [id number] 275mg [facility] hydroxyprog esterone(PF ) (KATHLEEN AUTO-INJECT OR) 275 mg/1.1 mL injection 275 mg 03-24 16:45: 00 03-24 15:59 :00 No [id number] 275mg [facility] hydroxyprog esterone,PF , 275 mg/1.1 mL injection 09 00:00: 00 07-21 00:00 :00 No [id number] 275mg inject 1.1 mL under the skin weekly. [facility] hydroxyprog esterone caproate, ppres, 250 mg/mL injection 2021-02 00:00: 00 Yes [id number] 250mg 1 mL by Intramuscu lar route weekly. [facility] HYDROXYprog est,PF,,pre g presv, 250 mg/mL (1 mL) injection 2021-02 00:00: 00 07-21 00:00 :00 No [facility] hydroxyprog esterone 250 mg/mL injection 2021-02 00:00: 00 03-07 00:00 :00 No [id number] 250mg 1 mL by Intramuscu lar route weekly. [facility] chlorhexidi ne 0.12 % mouthwash 2021-02 2-04 00:00: 00 07-21 00:00 :00 No AFTER BRUSHING TEETH, SWISH 15ML IN MOUTH FOR 30 SECONDS THEN SPIT OUT TWICE DAILY [facility] 25/iron fum/folic/d betancur (-1 ORAL) 2021-02 0 09:26: 35 Yes Take by mouth. [facility] PROAIR HFA 90 mcg/actuati on inhaler 10-26 00:00: 00 07-23 00:00 :00 No [facility] norgestimat e-ethinyl estradioL (TRI-SPRINT EC) 0.18/0.215/ 0.25 mg-35 mcg (28) tablet 10-12 00:00: 00 Yes [id number] 1{tbl} Take 1 tablet by mouth in the morning. [facility] norgestimat e-ethinyl estradioL (ORTHO TRI-CYCLEN, 28,) 0.18/0.215/ 0.25 mg-35 mcg (28) tablet 2020-02 00:00: 00 12-09 00:00 :00 No [id number] 1{tbl} Take 1 tablet by mouth daily. [facility] Immunizations Ordered Immunization Name Filled Immunization Name Date Status Comments Source TDAP 2022-05-26 00:00:[address] [facility] TDAP 2022-05-26 00:00:[address] [facility] TDAP 2022-05-26 00:00:[address] [facility] TDAP 2022-05-26 00:00:[address] [facility] TDAP 2022-05-26 00:00:[address] [facility] TDAP 2022-05-26 00:00:[address] [facility] TDAP 2022-05-26 00:00:[address] [facility] TDAP 2022-05-26 00:00:[address] [facility] TDAP 2022-05-26 00:00:[address] [facility] TDAP 2022-05-26 00:00:[address] [facility] TDAP 2022-05-26 00:00:[address] [facility] TDAP 2022-05-26 00:00:[address] [facility] TDAP 2022-05-26 00:00:[address] [facility] TDAP 2022-05-26 00:00:[address] [facility] TDAP 2022-05-26 00:00:[address] [facility] TDAP 2022-05-26 00:00:[address] [facility] TDAP 2022-05-26 00:00:[address] [facility] TDAP 2022-05-26 00:00:[address] [facility] TDAP 2022-05-26 00:00:[address] [facility] TDAP 2022-05-26 00:00:[address] [facility] TDAP 2022-05-26 00:00:[address] [facility] TDAP 2022-05-26 00:00:[address] [facility] TDAP 2022-05-26 00:00:00 Completed TDAP 2020-06-09 00:00:[address] [facility] TDAP 2020-06-09 00:00:[address] [facility] TDAP 2020-06-09 00:00:[address] [facility] TDAP 2020-06-09 00:00:[address] [facility] TDAP 2020-06-09 00:00:00 Completed [facility] TDAP 2020-06-09 00:00:00 Completed [facility] TDAP 2020-06-09 00:00:00 Completed [facility] TDAP 2020-06-09 00:00:00 Completed [facility] TDAP 2020-06-09 00:00:[address] [facility] TDAP 2020-06-09 00:00:00 Completed [facility] TDAP 2020-06-09 00:00:00 Completed [facility] TDAP 2020-06-09 00:00:00 Completed [facility] TDAP 2020-06-09 00:00:[address] [facility] TDAP 2020-06-09 00:00:[address] [facility] TDAP 2020-06-09 00:00:[address] [facility] TDAP 2020-06-09 00:00:[address] [facility] TDAP 2020-06-09 00:00:[address] [facility] TDAP 2020-06-09 00:00:[address] [facility] TDAP 2020-06-09 00:00:[address] [facility] TDAP 2020-06-09 00:00:[address] [facility] TDAP 2020-06-09 00:00:[address] [facility] TDAP 2020-06-09 00:00:[address] [facility] TDAP 2020-06-09 00:00:[address] [facility] TDAP 2020-06-09 00:00:[address] [facility] TDAP 2020-06-09 00:00:[address] [facility] TDAP 2020-06-09 00:00:[address] [facility] TDAP 2020-06-09 00:00:[address] [facility] TDAP 2020-06-09 00:00:[address] [facility] TDAP 2020-06-09 00:00:[address] [facility] TDAP 2020-06-09 00:00:[address] [facility] TDAP 2020-06-09 00:00:[address] [facility] TDAP 2020-06-09 00:00:[address] [facility] TDAP 2020-06-09 00:00:[address] [facility] TDAP 2020-06-09 00:00:[address] [facility] TDAP 2020-06-09 00:00:[address] [facility] TDAP 2020-06-09 00:00:[address] [facility] TDAP 2020-06-09 00:00:[address] [facility] TDAP 2020-06-09 00:00:[address] [facility] TDAP 2020-06-09 00:00:[address] [facility] TDAP 2020-06-09 00:00:[address] [facility] TDAP 2020-06-09 00:00:[address] [facility] TDAP 2020-06-09 00:00:[address] [facility] TDAP 2020-06-09 00:00:[address] [facility] TDAP 2020-06-09 00:00:[address] [facility] TDAP 2020-06-09 00:00:[address] [facility] TDAP 2020-06-09 00:00:[address] [facility] TDAP 2020-06-09 00:00:[address] [facility] TDAP 2020-06-09 00:00:[address] [facility] TDAP 2020-06-09 00:00:[address] [facility] TDAP 2020-06-09 00:00:[address] [facility] TDAP 2020-06-09 00:00:[address] [facility] TDAP 2020-06-09 00:00:00 Completed Influenza Virus Vaccine Quad .5 mL IM 6+ MO 2020-01-21 00:00:[address] [facility] Influenza Virus Vaccine Quad .5 mL IM 6+ MO 2020-01-21 00:00:[address] [facility] Influenza Virus Vaccine Quad .5 mL IM 6+ MO 2020-01-21 00:00:[address] [facility] Influenza Virus Vaccine Quad .5 mL IM 6+ MO 2020-01-21 00:00:[address] [facility] Influenza Virus Vaccine Quad .5 mL IM 6+ MO 2020-01-21 00:00:[address] [facility] Influenza Virus Vaccine Quad .5 mL IM 6+ MO 2020-01-21 00:00:[address] [facility] Influenza Virus Vaccine Quad .5 mL IM 6+ MO 2020-01-21 00:00:[address] [facility] Influenza Virus Vaccine Quad .5 mL IM 6+ MO 2020-01-21 00:00:[address] [facility] Influenza Virus Vaccine Quad .5 mL IM 6+ MO 2020-01-21 00:00:[address] [facility] Influenza Virus Vaccine Quad .5 mL IM 6+ MO 2020-01-21 00:00:[address] [facility] Influenza Virus Vaccine Quad .5 mL IM 6+ MO 2020-01-21 00:00:[address] [facility] Influenza Virus Vaccine Quad .5 mL IM 6+ MO 2020-01-21 00:00:[address] [facility] Influenza Virus Vaccine Quad .5 mL IM 6+ MO 2020-01-21 00:00:[address] [facility] Influenza Virus Vaccine Quad .5 mL IM 6+ MO 2020-01-21 00:00:[address] [facility] Influenza Virus Vaccine Quad .5 mL IM 6+ MO 2020-01-21 00:00:[address] [facility] Influenza Virus Vaccine Quad .5 mL IM 6+ MO 2020-01-21 00:00:[address] [facility] Influenza Virus Vaccine Quad .5 mL IM 6+ MO 2020-01-21 00:00:[address] [facility] Influenza Virus Vaccine Quad .5 mL IM 6+ MO 2020-01-21 00:00:[address] [facility] Influenza Virus Vaccine Quad .5 mL IM 6+ MO 2020-01-21 00:00:[address] [facility] Influenza Virus Vaccine Quad .5 mL IM 6+ MO 2020-01-21 00:00:[address] [facility] Influenza Virus Vaccine Quad .5 mL IM 6+ MO 2020-01-21 00:00:[address] [facility] Influenza Virus Vaccine Quad .5 mL IM 6+ MO 2020-01-21 00:00:[address] [facility] Influenza Virus Vaccine Quad .5 mL IM 6+ MO 2020-01-21 00:00:[address] [facility] Influenza Virus Vaccine Quad .5 mL IM 6+ MO 2020-01-21 00:00:[address] [facility] Influenza Virus Vaccine Quad .5 mL IM 6+ MO 2020-01-21 00:00:[address] [facility] Influenza Virus Vaccine Quad .5 mL IM 6+ MO 2020-01-21 00:00:[address] [facility] Influenza Virus Vaccine Quad .5 mL IM 6+ MO 2020-01-21 00:00:[address] [facility] Influenza Virus Vaccine Quad .5 mL IM 6+ MO 2020-01-21 00:00:[address] [facility] Influenza Virus Vaccine Quad .5 mL IM 6+ MO 2020-01-21 00:00:[address] [facility] Influenza Virus Vaccine Quad .5 mL IM 6+ MO 2020-01-21 00:00:[address] [facility] Influenza Virus Vaccine Quad .5 mL IM 6+ MO 2020-01-21 00:00:[address] [facility] Influenza Virus Vaccine Quad .5 mL IM 6+ MO 2020-01-21 00:00:[address] [facility] Influenza Virus Vaccine Quad .5 mL IM 6+ MO 2020-01-21 00:00:[address] [facility] Influenza Virus Vaccine Quad .5 mL IM 6+ MO 2020-01-21 00:00:[address] [facility] Influenza Virus Vaccine Quad .5 mL IM 6+ MO 2020-01-21 00:00:[address] [facility] Influenza Virus Vaccine Quad .5 mL IM 6+ MO 2020-01-21 00:00:[address] [facility] Influenza Virus Vaccine Quad .5 mL IM 6+ MO 2020-01-21 00:00:[address] [facility] Influenza Virus Vaccine Quad .5 mL IM 6+ MO 2020-01-21 00:00:[address] [facility] Influenza Virus Vaccine Quad .5 mL IM 6+ MO 2020-01-21 00:00:[address] [facility] Influenza Virus Vaccine Quad .5 mL IM 6+ MO 2020-01-21 00:00:[address] [facility] Influenza Virus Vaccine Quad .5 mL IM 6+ MO 2020-01-21 00:00:[address] [facility] Influenza Virus Vaccine Quad .5 mL IM 6+ MO 2020-01-21 00:00:[address] [facility] Influenza Virus Vaccine Quad .5 mL IM 6+ MO 2020-01-21 00:00:[address] [facility] Influenza Virus Vaccine Quad .5 mL IM 6+ MO 2020-01-21 00:00:[address] [facility] Influenza Virus Vaccine Quad .5 mL IM 6+ MO 2020-01-21 00:00:[address] [facility] Influenza Virus Vaccine Quad .5 mL IM 6+ MO 2020-01-21 00:00:[address] [facility] Influenza Virus Vaccine Quad .5 mL IM 6+ MO 2020-01-21 00:00:[address] [facility] Influenza Virus Vaccine Quad .5 mL IM 6+ MO 2020-01-21 00:00:[address] [facility] Influenza Virus Vaccine Quad .5 mL IM 6+ MO 2020-01-21 00:00:[address] [facility] Influenza Virus Vaccine Quad .5 mL IM 6+ MO 2020-01-21 00:00:[address] [facility] Influenza Virus Vaccine Quad .5 mL IM 6+ MO 2020-01-21 00:00:[address] [facility] Influenza Virus Vaccine Quad .5 mL IM 6+ MO (FLUZONE/FLULAVAL/FL UARIX) 2020-01-21 00:00:[address] [facility] Meningococcal Vaccine 2018-10-18 00:00:[address] [facility] TDAP 2018-10-18 00:00:[address] [facility] Meningococcal B, OMV 2018-10-18 00:00:[address] [facility] Meningococcal Vaccine 2018-10-18 00:00:[address] [facility] TDAP 2018-10-18 00:00:[address] [facility] Meningococcal B, OMV 2018-10-18 00:00:[address] [facility] Meningococcal Vaccine 2018-10-18 00:00:[address] [facility] TDAP 2018-10-18 00:00:[address] [facility] Meningococcal B, OMV 2018-10-18 00:00:[address] [facility] Meningococcal Vaccine 2018-10-18 00:00:[address] [facility] TDAP 2018-10-18 00:00:[address] [facility] Meningococcal B, OMV 2018-10-18 00:00:[address] [facility] Meningococcal Vaccine 2018-10-18 00:00:[address] [facility] TDAP 2018-10-18 00:00:[address] [facility] Meningococcal B, OMV 2018-10-18 00:00:[address] [facility] Meningococcal Vaccine 2018-10-18 00:00:[address] [facility] TDAP 2018-10-18 00:00:[address] [facility] Meningococcal B, OMV 2018-10-18 00:00:[address] [facility] Meningococcal Vaccine 2018-10-18 00:00:[address] [facility] TDAP 2018-10-18 00:00:[address] [facility] Meningococcal B, OMV 2018-10-18 00:00:[address] [facility] Meningococcal Vaccine 2018-10-18 00:00:[address] [facility] TDAP 2018-10-18 00:00:[address] [facility] Meningococcal B, OMV 2018-10-18 00:00:[address] [facility] Meningococcal Vaccine 2018-10-18 00:00:[address] [facility] TDAP 2018-10-18 00:00:[address] [facility] Meningococcal B, OMV 2018-10-18 00:00:[address] [facility] Meningococcal Vaccine 2018-10-18 00:00:[address] [facility] TDAP 2018-10-18 00:00:[address] [facility] Meningococcal B, OMV 2018-10-18 00:00:[address] [facility] Meningococcal Vaccine 2018-10-18 00:00:[address] [facility] TDAP 2018-10-18 00:00:[address] [facility] Meningococcal B, OMV 2018-10-18 00:00:[address] [facility] Meningococcal Vaccine 2018-10-18 00:00:[address] [facility] TDAP 2018-10-18 00:00:[address] [facility] Meningococcal B, OMV 2018-10-18 00:00:[address] [facility] Meningococcal Vaccine 2018-10-18 00:00:[address] [facility] TDAP 2018-10-18 00:00:[address] [facility] Meningococcal B, OMV 2018-10-18 00:00:[address] [facility] Meningococcal Vaccine 2018-10-18 00:00:[address] [facility] TDAP 2018-10-18 00:00:[address] [facility] Meningococcal B, OMV 2018-10-18 00:00:[address] [facility] Meningococcal Vaccine 2018-10-18 00:00:[address] [facility] TDAP 2018-10-18 00:00:[address] [facility] Meningococcal B, OMV 2018-10-18 00:00:[address] [facility] Meningococcal Vaccine 2018-10-18 00:00:[address] [facility] TDAP 2018-10-18 00:00:[address] [facility] Meningococcal B, OMV 2018-10-18 00:00:[address] [facility] Meningococcal Vaccine 2018-10-18 00:00:[address] [facility] TDAP 2018-10-18 00:00:[address] [facility] Meningococcal B, OMV 2018-10-18 00:00:[address] [facility] Meningococcal Vaccine 2018-10-18 00:00:[address] [facility] TDAP 2018-10-18 00:00:[address] [facility] Meningococcal B, OMV 2018-10-18 00:00:[address] [facility] Meningococcal Vaccine 2018-10-18 00:00:[address] [facility] TDAP 2018-10-18 00:00:[address] [facility] Meningococcal B, OMV 2018-10-18 00:00:[address] [facility] Meningococcal Vaccine 2018-10-18 00:00:[address] [facility] TDAP 2018-10-18 00:00:[address] [facility] Meningococcal B, OMV 2018-10-18 00:00:[address] [facility] Meningococcal Vaccine 2018-10-18 00:00:[address] [facility] TDAP 2018-10-18 00:00:[address] [facility] Meningococcal B, OMV 2018-10-18 00:00:[address] [facility] Meningococcal Vaccine 2018-10-18 00:00:[address] [facility] TDAP 2018-10-18 00:00:[address] [facility] Meningococcal B, OMV 2018-10-18 00:00:[address] [facility] Meningococcal Vaccine 2018-10-18 00:00:[address] [facility] TDAP 2018-10-18 00:00:[address] [facility] Meningococcal B, OMV 2018-10-18 00:00:[address] [facility] Meningococcal Vaccine 2018-10-18 00:00:[address] [facility] TDAP 2018-10-18 00:00:[address] [facility] Meningococcal B, OMV 2018-10-18 00:00:[address] [facility] Meningococcal Vaccine 2018-10-18 00:00:[address] [facility] TDAP 2018-10-18 00:00:[address] [facility] Meningococcal B, OMV 2018-10-18 00:00:[address] [facility] Meningococcal Vaccine 2018-10-18 00:00:[address] [facility] TDAP 2018-10-18 00:00:[address] [facility] Meningococcal B, OMV 2018-10-18 00:00:[address] [facility] Meningococcal Vaccine 2018-10-18 00:00:[address] [facility] TDAP 2018-10-18 00:00:[address] [facility] Meningococcal B, OMV 2018-10-18 00:00:[address] [facility] Meningococcal Vaccine 2018-10-18 00:00:[address] [facility] TDAP 2018-10-18 00:00:[address] [facility] Meningococcal B, OMV 2018-10-18 00:00:[address] [facility] Meningococcal Vaccine 2018-10-18 00:00:[address] [facility] TDAP 2018-10-18 00:00:[address] [facility] Meningococcal B, OMV 2018-10-18 00:00:[address] [facility] Meningococcal Vaccine 2018-10-18 00:00:[address] [facility] TDAP 2018-10-18 00:00:[address] [facility] Meningococcal B, OMV 2018-10-18 00:00:[address] [facility] Meningococcal Polysaccharide (groups A, C, Y and W-135) conjugate vaccine (MCV4P) 2018-10-18 00:00:[address] [facility] Meningococcal Vaccine 2018-10-18 00:00:[address] [facility] TDAP 2018-10-18 00:00:[address] [facility] Meningococcal B, OMV 2018-10-18 00:00:[address] [facility] Meningococcal Polysaccharide (groups A, C, Y and W-135) conjugate vaccine (MCV4P) 2018-10-18 00:00:[address] [facility] Meningococcal Vaccine 2018-10-18 00:00:[address] [facility] TDAP 2018-10-18 00:00:[address] [facility] Meningococcal B, OMV 2018-10-18 00:00:[address] [facility] Meningococcal Polysaccharide (groups A, C, Y and W-135) conjugate vaccine (MCV4P) 2018-10-18 00:00:[address] [facility] Meningococcal Vaccine 2018-10-18 00:00:[address] [facility] TDAP 2018-10-18 00:00:[address] [facility] Meningococcal B, OMV 2018-10-18 00:00:[address] [facility] Meningococcal Polysaccharide (groups A, C, Y and W-135) conjugate vaccine (MCV4P) 2018-10-18 00:00:[address] [facility] Meningococcal Vaccine 2018-10-18 00:00:[address] [facility] TDAP 2018-10-18 00:00:[address] [facility] Meningococcal B, OMV 2018-10-18 00:00:[address] [facility] Meningococcal Polysaccharide (groups A, C, Y and W-135) conjugate vaccine (MCV4P) 2018-10-18 00:00:[address] [facility] Meningococcal Vaccine 2018-10-18 00:00:[address] [facility] TDAP 2018-10-18 00:00:[address] [facility] Meningococcal B, OMV 2018-10-18 00:00:[address] [facility] Meningococcal Polysaccharide (groups A, C, Y and W-135) conjugate vaccine (MCV4P) 2018-10-18 00:00:[address] [facility] Meningococcal Vaccine 2018-10-18 00:00:[address] [facility] TDAP 2018-10-18 00:00:[address] [facility] Meningococcal B, OMV 2018-10-18 00:00:[address] [facility] Meningococcal Polysaccharide (groups A, C, Y and W-135) conjugate vaccine (MCV4P) 2018-10-18 00:00:[address] [facility] Meningococcal Vaccine 2018-10-18 00:00:[address] [facility] TDAP 2018-10-18 00:00:[address] [facility] Meningococcal B, OMV 2018-10-18 00:00:[address] [facility] Meningococcal Polysaccharide (groups A, C, Y and W-135) conjugate vaccine (MCV4P) 2018-10-18 00:00:[address] [facility] Meningococcal Vaccine 2018-10-18 00:00:[address] [facility] TDAP 2018-10-18 00:00:[address] [facility] Meningococcal B, OMV 2018-10-18 00:00:[address] [facility] Meningococcal Polysaccharide (groups A, C, Y and W-135) conjugate vaccine (MCV4P) 2018-10-18 00:00:[address] [facility] Meningococcal Vaccine 2018-10-18 00:00:[address] [facility] TDAP 2018-10-18 00:00:[address] [facility] Meningococcal B, OMV 2018-10-18 00:00:[address] [facility] Meningococcal Polysaccharide (groups A, C, Y and W-135) conjugate vaccine (MCV4P) 2018-10-18 00:00:[address] [facility] Meningococcal Vaccine 2018-10-18 00:00:[address] [facility] TDAP 2018-10-18 00:00:[address] [facility] Meningococcal B, OMV 2018-10-18 00:00:[address] [facility] Meningococcal Polysaccharide (groups A, C, Y and W-135) conjugate vaccine (MCV4P) 2018-10-18 00:00:[address] [facility] Meningococcal Vaccine 2018-10-18 00:00:[address] [facility] TDAP 2018-10-18 00:00:[address] [facility] Meningococcal B, OMV 2018-10-18 00:00:[address] [facility] Meningococcal Polysaccharide (groups A, C, Y and W-135) conjugate vaccine (MCV4P) 2018-10-18 00:00:[address] [facility] Meningococcal Vaccine 2018-10-18 00:00:[address] [facility] TDAP 2018-10-18 00:00:[address] [facility] Meningococcal B, OMV 2018-10-18 00:00:[address] [facility] Meningococcal Polysaccharide (groups A, C, Y and W-135) conjugate vaccine (MCV4P) 2018-10-18 00:00:[address] [facility] Meningococcal Vaccine 2018-10-18 00:00:[address] [facility] TDAP 2018-10-18 00:00:[address] [facility] Meningococcal B, OMV 2018-10-18 00:00:[address] [facility] Meningococcal Polysaccharide (groups A, C, Y and W-135) conjugate vaccine (MCV4P) 2018-10-18 00:00:[address] [facility] Meningococcal Vaccine 2018-10-18 00:00:[address] [facility] TDAP 2018-10-18 00:00:[address] [facility] Meningococcal B, OMV 2018-10-18 00:00:[address] [facility] Meningococcal Polysaccharide (groups A, C, Y and W-135) conjugate vaccine (MCV4P) 2018-10-18 00:00:[address] [facility] Meningococcal Vaccine 2018-10-18 00:00:[address] [facility] TDAP 2018-10-18 00:00:[address] [facility] Meningococcal B, OMV 2018-10-18 00:00:[address] [facility] Meningococcal Polysaccharide (groups A, C, Y and W-135) conjugate vaccine (MCV4P) 2018-10-18 00:00:[address] [facility] Meningococcal Vaccine 2018-10-18 00:00:[address] [facility] TDAP 2018-10-18 00:00:[address] [facility] Meningococcal B, OMV 2018-10-18 00:00:[address] [facility] Meningococcal Polysaccharide (groups A, C, Y and W-135) conjugate vaccine (MCV4P) 2018-10-18 00:00:[address] [facility] Meningococcal Vaccine 2018-10-18 00:00:[address] [facility] TDAP 2018-10-18 00:00:[address] [facility] Meningococcal B, OMV 2018-10-18 00:00:[address] [facility] Meningococcal Polysaccharide (groups A, C, Y and W-135) conjugate vaccine (MCV4P) 2018-10-18 00:00:[address] [facility] Meningococcal Vaccine 2018-10-18 00:00:[address] [facility] TDAP 2018-10-18 00:00:[address] [facility] Meningococcal B, OMV 2018-10-18 00:00:[address] [facility] Meningococcal Polysaccharide (groups A, C, Y and W-135) conjugate vaccine (MCV4P) 2018-10-18 00:00:[address] [facility] Meningococcal Vaccine 2018-10-18 00:00:[address] [facility] TDAP 2018-10-18 00:00:[address] [facility] Meningococcal B, OMV 2018-10-18 00:00:[address] [facility] Meningococcal Polysaccharide (groups A, C, Y and W-135) conjugate vaccine (MCV4P) 2018-10-18 00:00:[address] [facility] Meningococcal Vaccine 2018-10-18 00:00:[address] [facility] TDAP 2018-10-18 00:00:[address] [facility] Meningococcal B, OMV 2018-10-18 00:00:[address] [facility] Meningococcal Polysaccharide (groups A, C, Y and W-135) conjugate vaccine (MCV4P) 2018-10-18 00:00:[address] [facility] Meningococcal Vaccine 2018-10-18 00:00:[address] [facility] TDAP 2018-10-18 00:00:[address] [facility] Meningococcal B, OMV 2018-10-18 00:00:[address] [facility] Meningococcal Polysaccharide (groups A, C, Y and W-135) conjugate vaccine (MCV4P) 2018-10-18 00:00:[address] [facility] Meningococcal Vaccine 2018-10-18 00:00:00 Completed TDAP 2018-10-18 00:00:00 Completed Meningococcal B, OMV 2018-10-18 00:00:00 Completed Meningococcal Polysaccharide (groups A, C, Y and W-135) conjugate vaccine (MCV4P) 2018-10-18 00:00:00 Completed DTAP 2006-10-25 00:00:[address] [facility] Hepatitis A Adult 2006-10-25 00:00:[address] [facility] Polio (IPV/OPV) 2006-10-25 00:00:[address] [facility] DTAP 2006-10-25 00:00:[address] [facility] Hepatitis A Adult 2006-10-25 00:00:[address] [facility] Polio (IPV/OPV) 2006-10-25 00:00:[address] [facility] DTAP 2006-10-25 00:00:[address] [facility] Hepatitis A Adult 2006-10-25 00:00:[address] [facility] Polio (IPV/OPV) 2006-10-25 00:00:[address] [facility] DTAP 2006-10-25 00:00:[address] [facility] Hepatitis A Adult 2006-10-25 00:00:[address] [facility] Polio (IPV/OPV) 2006-10-25 00:00:[address] [facility] DTAP 2006-10-25 00:00:[address] [facility] Hepatitis A Adult 2006-10-25 00:00:[address] [facility] Polio (IPV/OPV) 2006-10-25 00:00:[address] [facility] DTAP 2006-10-25 00:00:[address] [facility] Hepatitis A Adult 2006-10-25 00:00:[address] [facility] Polio (IPV/OPV) 2006-10-25 00:00:[address] [facility] DTAP 2006-10-25 00:00:[address] [facility] Hepatitis A Adult 2006-10-25 00:00:[address] [facility] Polio (IPV/OPV) 2006-10-25 00:00:[address] [facility] DTAP 2006-10-25 00:00:[address] [facility] Hepatitis A Adult 2006-10-25 00:00:[address] [facility] Polio (IPV/OPV) 2006-10-25 00:00:[address] [facility] DTAP 2006-10-25 00:00:[address] [facility] Hepatitis A Adult 2006-10-25 00:00:[address] [facility] Polio (IPV/OPV) 2006-10-25 00:00:[address] [facility] DTAP 2006-10-25 00:00:[address] [facility] Hepatitis A Adult 2006-10-25 00:00:[address] [facility] Polio (IPV/OPV) 2006-10-25 00:00:[address] [facility] DTAP 2006-10-25 00:00:[address] [facility] Hepatitis A Adult 2006-10-25 00:00:[address] [facility] Polio (IPV/OPV) 2006-10-25 00:00:[address] [facility] DTAP 2006-10-25 00:00:[address] [facility] Hepatitis A Adult 2006-10-25 00:00:[address] [facility] Polio (IPV/OPV) 2006-10-25 00:00:[address] [facility] DTAP 2006-10-25 00:00:[address] [facility] Hepatitis A Adult 2006-10-25 00:00:[address] [facility] Polio (IPV/OPV) 2006-10-25 00:00:[address] [facility] DTAP 2006-10-25 00:00:[address] [facility] Hepatitis A Adult 2006-10-25 00:00:[address] [facility] Polio (IPV/OPV) 2006-10-25 00:00:[address] [facility] DTAP 2006-10-25 00:00:[address] [facility] Hepatitis A Adult 2006-10-25 00:00:[address] [facility] Polio (IPV/OPV) 2006-10-25 00:00:[address] [facility] DTAP 2006-10-25 00:00:[address] [facility] Hepatitis A Adult 2006-10-25 00:00:[address] [facility] Polio (IPV/OPV) 2006-10-25 00:00:[address] [facility] DTAP 2006-10-25 00:00:[address] [facility] Hepatitis A Adult 2006-10-25 00:00:[address] [facility] Polio (IPV/OPV) 2006-10-25 00:00:[address] [facility] DTAP 2006-10-25 00:00:[address] [facility] Hepatitis A Adult 2006-10-25 00:00:[address] [facility] Polio (IPV/OPV) 2006-10-25 00:00:[address] [facility] DTAP 2006-10-25 00:00:[address] [facility] Hepatitis A Adult 2006-10-25 00:00:[address] [facility] Polio (IPV/OPV) 2006-10-25 00:00:[address] [facility] DTAP 2006-10-25 00:00:[address] [facility] Hepatitis A Adult 2006-10-25 00:00:[address] [facility] Polio (IPV/OPV) 2006-10-25 00:00:[address] [facility] DTAP 2006-10-25 00:00:[address] [facility] Hepatitis A Adult 2006-10-25 00:00:[address] [facility] Polio (IPV/OPV) 2006-10-25 00:00:[address] [facility] DTAP 2006-10-25 00:00:[address] [facility] Hepatitis A Adult 2006-10-25 00:00:[address] [facility] Polio (IPV/OPV) 2006-10-25 00:00:[address] [facility] DTAP 2006-10-25 00:00:[address] [facility] Hepatitis A Adult 2006-10-25 00:00:[address] [facility] Polio (IPV/OPV) 2006-10-25 00:00:[address] [facility] DTAP 2006-10-25 00:00:[address] [facility] Hepatitis A Adult 2006-10-25 00:00:[address] [facility] Polio (IPV/OPV) 2006-10-25 00:00:[address] [facility] DTAP 2006-10-25 00:00:[address] [facility] Hepatitis A Adult 2006-10-25 00:00:[address] [facility] Polio (IPV/OPV) 2006-10-25 00:00:[address] [facility] DTAP 2006-10-25 00:00:[address] [facility] Hepatitis A Adult 2006-10-25 00:00:[address] [facility] Polio (IPV/OPV) 2006-10-25 00:00:[address] [facility] DTAP 2006-10-25 00:00:[address] [facility] Hepatitis A Adult 2006-10-25 00:00:[address] [facility] Polio (IPV/OPV) 2006-10-25 00:00:[address] [facility] DTAP 2006-10-25 00:00:[address] [facility] Hepatitis A Adult 2006-10-25 00:00:[address] [facility] Polio (IPV/OPV) 2006-10-25 00:00:[address] [facility] DTAP 2006-10-25 00:00:[address] [facility] Hepatitis A Adult 2006-10-25 00:00:[address] [facility] Polio (IPV/OPV) 2006-10-25 00:00:[address] [facility] DTAP 2006-10-25 00:00:[address] [facility] Hepatitis A Adult 2006-10-25 00:00:[address] [facility] Polio (IPV/OPV) 2006-10-25 00:00:[address] [facility] DTaP, Unspecified Formulation 2006-10-25 00:00:[address] [facility] HEPA,NOS 2006-10-25 00:00:[address] [facility] IPV 2006-10-25 00:00:[address] [facility] DTAP 2006-10-25 00:00:[address] [facility] Hepatitis A Adult 2006-10-25 00:00:[address] [facility] Polio (IPV/OPV) 2006-10-25 00:00:[address] [facility] DTaP, Unspecified Formulation 2006-10-25 00:00:[address] [facility] HEPA,NOS 2006-10-25 00:00:[address] [facility] IPV 2006-10-25 00:00:[address] [facility] DTAP 2006-10-25 00:00:[address] [facility] Hepatitis A Adult 2006-10-25 00:00:[address] [facility] Polio (IPV/OPV) 2006-10-25 00:00:[address] [facility] DTaP, Unspecified Formulation 2006-10-25 00:00:[address] [facility] HEPA,NOS 2006-10-25 00:00:[address] [facility] IPV 2006-10-25 00:00:[address] [facility] DTAP 2006-10-25 00:00:[address] [facility] Hepatitis A Adult 2006-10-25 00:00:[address] [facility] Polio (IPV/OPV) 2006-10-25 00:00:[address] [facility] DTaP, Unspecified Formulation 2006-10-25 00:00:[address] [facility] HEPA,NOS 2006-10-25 00:00:[address] [facility] IPV 2006-10-25 00:00:[address] [facility] DTAP 2006-10-25 00:00:[address] [facility] Hepatitis A Adult 2006-10-25 00:00:[address] [facility] Polio (IPV/OPV) 2006-10-25 00:00:[address] [facility] DTaP, Unspecified Formulation 2006-10-25 00:00:[address] [facility] HEPA,NOS 2006-10-25 00:00:[address] [facility] IPV 2006-10-25 00:00:[address] [facility] DTAP 2006-10-25 00:00:[address] [facility] Hepatitis A Adult 2006-10-25 00:00:[address] [facility] Polio (IPV/OPV) 2006-10-25 00:00:[address] [facility] DTaP, Unspecified Formulation 2006-10-25 00:00:[address] [facility] HEPA,NOS 2006-10-25 00:00:[address] [facility] IPV 2006-10-25 00:00:[address] [facility] DTAP 2006-10-25 00:00:[address] [facility] Hepatitis A Adult 2006-10-25 00:00:[address] [facility] Polio (IPV/OPV) 2006-10-25 00:00:[address] [facility] DTaP, Unspecified Formulation 2006-10-25 00:00:[address] [facility] HEPA,NOS 2006-10-25 00:00:[address] [facility] IPV 2006-10-25 00:00:[address] [facility] DTAP 2006-10-25 00:00:[address] [facility] Hepatitis A Adult 2006-10-25 00:00:[address] [facility] Polio (IPV/OPV) 2006-10-25 00:00:[address] [facility] DTaP, Unspecified Formulation 2006-10-25 00:00:[address] [facility] HEPA,NOS 2006-10-25 00:00:[address] [facility] IPV 2006-10-25 00:00:[address] [facility] DTAP 2006-10-25 00:00:[address] [facility] Hepatitis A Adult 2006-10-25 00:00:[address] [facility] Polio (IPV/OPV) 2006-10-25 00:00:[address] [facility] DTaP, Unspecified Formulation 2006-10-25 00:00:[address] [facility] HEPA,NOS 2006-10-25 00:00:[address] [facility] IPV 2006-10-25 00:00:[address] [facility] DTAP 2006-10-25 00:00:[address] [facility] Hepatitis A Adult 2006-10-25 00:00:[address] [facility] Polio (IPV/OPV) 2006-10-25 00:00:[address] [facility] DTaP, Unspecified Formulation 2006-10-25 00:00:[address] [facility] HEPA,NOS 2006-10-25 00:00:[address] [facility] IPV 2006-10-25 00:00:[address] [facility] DTAP 2006-10-25 00:00:[address] [facility] Hepatitis A Adult 2006-10-25 00:00:[address] [facility] Polio (IPV/OPV) 2006-10-25 00:00:[address] [facility] DTaP, Unspecified Formulation 2006-10-25 00:00:[address] [facility] HEPA,NOS 2006-10-25 00:00:[address] [facility] IPV 2006-10-25 00:00:[address] [facility] DTAP 2006-10-25 00:00:[address] [facility] Hepatitis A Adult 2006-10-25 00:00:[address] [facility] Polio (IPV/OPV) 2006-10-25 00:00:[address] [facility] DTaP, Unspecified Formulation 2006-10-25 00:00:[address] [facility] HEPA,NOS 2006-10-25 00:00:[address] [facility] IPV 2006-10-25 00:00:[address] [facility] DTAP 2006-10-25 00:00:[address] [facility] Hepatitis A Adult 2006-10-25 00:00:[address] [facility] [facility] (IPV/OPV) 2006-10-25 00:00:[address] [facility] DTaP, Unspecified Formulation 2006-10-25 00:00:[address] [facility] HEPA,NOS 2006-10-25 00:00:[address] [facility] IPV 2006-10-25 00:00:[address] [facility] DTAP 2006-10-25 00:00:[address] [facility] Hepatitis A Adult 2006-10-25 00:00:[address] [facility] Polio (IPV/OPV) 2006-10-25 00:00:[address] [facility] DTaP, Unspecified Formulation 2006-10-25 00:00:[address] [facility] HEPA,NOS 2006-10-25 00:00:[address] [facility] IPV 2006-10-25 00:00:[address] [facility] DTAP 2006-10-25 00:00:[address] [facility] Hepatitis A Adult 2006-10-25 00:00:[address] [facility] Polio (IPV/OPV) 2006-10-25 00:00:[address] [facility] DTaP, Unspecified Formulation 2006-10-25 00:00:[address] [facility] HEPA,NOS 2006-10-25 00:00:[address] [facility] IPV 2006-10-25 00:00:[address] [facility] DTAP 2006-10-25 00:00:[address] [facility] Hepatitis A Adult 2006-10-25 00:00:[address] [facility] Polio (IPV/OPV) 2006-10-25 00:00:[address] [facility] DTaP, Unspecified Formulation 2006-10-25 00:00:[address] [facility] HEPA,NOS 2006-10-25 00:00:[address] [facility] IPV 2006-10-25 00:00:[address] [facility] DTAP 2006-10-25 00:00:[address] [facility] Hepatitis A Adult 2006-10-25 00:00:[address] [facility] Polio (IPV/OPV) 2006-10-25 00:00:[address] [facility] DTaP, Unspecified Formulation 2006-10-25 00:00:[address] [facility] HEPA,NOS 2006-10-25 00:00:[address] [facility] IPV 2006-10-25 00:00:[address] [facility] DTAP 2006-10-25 00:00:[address] [facility] Hepatitis A Adult 2006-10-25 00:00:[address] [facility] Polio (IPV/OPV) 2006-10-25 00:00:[address] [facility] DTaP, Unspecified Formulation 2006-10-25 00:00:[address] [facility] HEPA,NOS 2006-10-25 00:00:[address] [facility] IPV 2006-10-25 00:00:[address] [facility] DTAP 2006-10-25 00:00:[address] [facility] Hepatitis A Adult 2006-10-25 00:00:[address] [facility] Polio (IPV/OPV) 2006-10-25 00:00:[address] [facility] DTaP, Unspecified Formulation 2006-10-25 00:00:[address] [facility] HEPA,NOS 2006-10-25 00:00:[address] [facility] IPV 2006-10-25 00:00:[address] [facility] DTAP 2006-10-25 00:00:[address] [facility] Hepatitis A Adult 2006-10-25 00:00:[address] [facility] Polio (IPV/OPV) 2006-10-25 00:00:[address] [facility] DTaP, Unspecified Formulation 2006-10-25 00:00:[address] [facility] HEPA,NOS 2006-10-25 00:00:[address] [facility] IPV 2006-10-25 00:00:[address] [facility] DTAP 2006-10-25 00:00:[address] [facility] Hepatitis A Adult 2006-10-25 00:00:[address] [facility] Polio (IPV/OPV) 2006-10-25 00:00:[address] [facility] DTaP, Unspecified Formulation 2006-10-25 00:00:[address] [facility] HEPA,NOS 2006-10-25 00:00:[address] [facility] IPV 2006-10-25 00:00:[address] [facility] DTAP 2006-10-25 00:00:[address] [facility] Hepatitis A Adult 2006-10-25 00:00:[address] [facility] Polio (IPV/OPV) 2006-10-25 00:00:[address] [facility] DTaP, Unspecified Formulation 2006-10-25 00:00:[address] [facility] HEPA,NOS 2006-10-25 00:00:[address] [facility] IPV 2006-10-25 00:00:[address] [facility] DTAP 2006-10-25 00:00:00 Completed Hepatitis A Adult 2006-10-25 00:00:00 Completed Polio (IPV/OPV) 2006-10-25 00:00:00 Completed DTaP, Unspecified Formulation 2006-10-25 00:00:00 Completed HEPA,NOS 2006-10-25 00:00:00 Completed IPV 2006-10-25 00:00:00 Completed DTAP 2005-09-20 00:00:[address] [facility] HIB 3 Dose Schedule 2005-09-20 00:00:[address] [facility] Hepatitis A Adult 2005-09-20 00:00:[address] [facility] Hep B, Adol or Pedi Dosage 2005-09-20 00:00:[address] [facility] Pneumococcal 13 Conjugate, PCV13 (Prevnar 13) 2005-09-20 00:00:[address] [facility] Polio (IPV/OPV) 2005-09-20 00:00:[address] [facility] DTAP 2005-09-20 00:00:[address] [facility] HIB 3 Dose Schedule 2005-09-20 00:00:[address] [facility] Hepatitis A Adult 2005-09-20 00:00:[address] [facility] Hep B, Adol or Pedi Dosage 2005-09-20 00:00:[address] [facility] Pneumococcal 13 Conjugate, PCV13 (Prevnar 13) 2005-09-20 00:00:[address] [facility] Polio (IPV/OPV) 2005-09-20 00:00:[address] [facility] DTAP 2005-09-20 00:00:[address] [facility] HIB 3 Dose Schedule 2005-09-20 00:00:[address] [facility] Hepatitis A Adult 2005-09-20 00:00:[address] [facility] Hep B, Adol or Pedi Dosage 2005-09-20 00:00:[address] [facility] Pneumococcal 13 Conjugate, PCV13 (Prevnar 13) 2005-09-20 00:00:[address] [facility] Polio (IPV/OPV) 2005-09-20 00:00:[address] [facility] DTAP 2005-09-20 00:00:[address] [facility] HIB 3 Dose Schedule 2005-09-20 00:00:[address] [facility] Hepatitis A Adult 2005-09-20 00:00:[address] [facility] Hep B, Adol or Pedi Dosage 2005-09-20 00:00:[address] [facility] Pneumococcal 13 Conjugate, PCV13 (Prevnar 13) 2005-09-20 00:00:[address] [facility] Polio (IPV/OPV) 2005-09-20 00:00:[address] [facility] DTAP 2005-09-20 00:00:[address] [facility] HIB 3 Dose Schedule 2005-09-20 00:00:[address] [facility] Hepatitis A Adult 2005-09-20 00:00:[address] [facility] Hep B, Adol or Pedi Dosage 2005-09-20 00:00:[address] [facility] Pneumococcal 13 Conjugate, PCV13 (Prevnar 13) 2005-09-20 00:00:[address] [facility] Polio (IPV/OPV) 2005-09-20 00:00:[address] [facility] DTAP 2005-09-20 00:00:[address] [facility] HIB 3 Dose Schedule 2005-09-20 00:00:[address] [facility] Hepatitis A Adult 2005-09-20 00:00:[address] [facility] Hep B, Adol or Pedi Dosage 2005-09-20 00:00:[address] [facility] Pneumococcal 13 Conjugate, PCV13 (Prevnar 13) 2005-09-20 00:00:[address] [facility] Polio (IPV/OPV) 2005-09-20 00:00:[address] [facility] DTAP 2005-09-20 00:00:[address] [facility] HIB 3 Dose Schedule 2005-09-20 00:00:[address] [facility] Hepatitis A Adult 2005-09-20 00:00:[address] [facility] Hep B, Adol or Pedi Dosage 2005-09-20 00:00:[address] [facility] Pneumococcal 13 Conjugate, PCV13 (Prevnar 13) 2005-09-20 00:00:[address] [facility] Polio (IPV/OPV) 2005-09-20 00:00:[address] [facility] DTAP 2005-09-20 00:00:[address] [facility] HIB 3 Dose Schedule 2005-09-20 00:00:[address] [facility] Hepatitis A Adult 2005-09-20 00:00:[address] [facility] Hep B, Adol or Pedi Dosage 2005-09-20 00:00:[address] [facility] Pneumococcal 13 Conjugate, PCV13 (Prevnar 13) 2005-09-20 00:00:[address] [facility] Polio (IPV/OPV) 2005-09-20 00:00:[address] [facility] DTAP 2005-09-20 00:00:[address] [facility] HIB 3 Dose Schedule 2005-09-20 00:00:[address] [facility] Hepatitis A Adult 2005-09-20 00:00:[address] [facility] Hep B, Adol or Pedi Dosage 2005-09-20 00:00:[address] [facility] Pneumococcal 13 Conjugate, PCV13 (Prevnar 13) 2005-09-20 00:00:[address] [facility] Polio (IPV/OPV) 2005-09-20 00:00:[address] [facility] DTAP 2005-09-20 00:00:[address] [facility] HIB 3 Dose Schedule 2005-09-20 00:00:[address] [facility] Hepatitis A Adult 2005-09-20 00:00:[address] [facility] Hep B, Adol or Pedi Dosage 2005-09-20 00:00:[address] [facility] Pneumococcal 13 Conjugate, PCV13 (Prevnar 13) 2005-09-20 00:00:[address] [facility] Polio (IPV/OPV) 2005-09-20 00:00:[address] [facility] DTAP 2005-09-20 00:00:[address] [facility] HIB 3 Dose Schedule 2005-09-20 00:00:[address] [facility] Hepatitis A Adult 2005-09-20 00:00:[address] [facility] Hep B, Adol or Pedi Dosage 2005-09-20 00:00:[address] [facility] Pneumococcal 13 Conjugate, PCV13 (Prevnar 13) 2005-09-20 00:00:[address] [facility] Polio (IPV/OPV) 2005-09-20 00:00:[address] [facility] DTAP 2005-09-20 00:00:[address] [facility] HIB 3 Dose Schedule 2005-09-20 00:00:[address] [facility] Hepatitis A Adult 2005-09-20 00:00:[address] [facility] Hep B, Adol or Pedi Dosage 2005-09-20 00:00:[address] [facility] Pneumococcal 13 Conjugate, PCV13 (Prevnar 13) 2005-09-20 00:00:[address] [facility] Polio (IPV/OPV) 2005-09-20 00:00:[address] [facility] DTAP 2005-09-20 00:00:[address] [facility] HIB 3 Dose Schedule 2005-09-20 00:00:[address] [facility] Hepatitis A Adult 2005-09-20 00:00:[address] [facility] Hep B, Adol or Pedi Dosage 2005-09-20 00:00:[address] [facility] Pneumococcal 13 Conjugate, PCV13 (Prevnar 13) 2005-09-20 00:00:[address] [facility] Polio (IPV/OPV) 2005-09-20 00:00:[address] [facility] DTAP 2005-09-20 00:00:[address] [facility] HIB 3 Dose Schedule 2005-09-20 00:00:[address] [facility] Hepatitis A Adult 2005-09-20 00:00:[address] [facility] Hep B, Adol or Pedi Dosage 2005-09-20 00:00:[address] [facility] Pneumococcal 13 Conjugate, PCV13 (Prevnar 13) 2005-09-20 00:00:[address] [facility] Polio (IPV/OPV) 2005-09-20 00:00:[address] [facility] DTAP 2005-09-20 00:00:[address] [facility] HIB 3 Dose Schedule 2005-09-20 00:00:[address] [facility] Hepatitis A Adult 2005-09-20 00:00:[address] [facility] Hep B, Adol or Pedi Dosage 2005-09-20 00:00:[address] [facility] Pneumococcal 13 Conjugate, PCV13 (Prevnar 13) 2005-09-20 00:00:[address] [facility] Polio (IPV/OPV) 2005-09-20 00:00:[address] [facility] DTAP 2005-09-20 00:00:[address] [facility] HIB 3 Dose Schedule 2005-09-20 00:00:[address] [facility] Hepatitis A Adult 2005-09-20 00:00:[address] [facility] Hep B, Adol or Pedi Dosage 2005-09-20 00:00:[address] [facility] Pneumococcal 13 Conjugate, PCV13 (Prevnar 13) 2005-09-20 00:00:[address] [facility] Polio (IPV/OPV) 2005-09-20 00:00:[address] [facility] DTAP 2005-09-20 00:00:[address] [facility] HIB 3 Dose Schedule 2005-09-20 00:00:[address] [facility] Hepatitis A Adult 2005-09-20 00:00:[address] [facility] Hep B, Adol or Pedi Dosage 2005-09-20 00:00:[address] [facility] Pneumococcal 13 Conjugate, PCV13 (Prevnar 13) 2005-09-20 00:00:[address] [facility] Polio (IPV/OPV) 2005-09-20 00:00:[address] [facility] DTAP 2005-09-20 00:00:[address] [facility] HIB 3 Dose Schedule 2005-09-20 00:00:[address] [facility] Hepatitis A Adult 2005-09-20 00:00:[address] [facility] Hep B, Adol or Pedi Dosage 2005-09-20 00:00:[address] [facility] Pneumococcal 13 Conjugate, PCV13 (Prevnar 13) 2005-09-20 00:00:[address] [facility] Polio (IPV/OPV) 2005-09-20 00:00:[address] [facility] DTAP 2005-09-20 00:00:[address] [facility] HIB 3 Dose Schedule 2005-09-20 00:00:[address] [facility] Hepatitis A Adult 2005-09-20 00:00:[address] [facility] Hep B, Adol or Pedi Dosage 2005-09-20 00:00:[address] [facility] Pneumococcal 13 Conjugate, PCV13 (Prevnar 13) 2005-09-20 00:00:[address] [facility] Polio (IPV/OPV) 2005-09-20 00:00:[address] [facility] DTAP 2005-09-20 00:00:[address] [facility] HIB 3 Dose Schedule 2005-09-20 00:00:[address] [facility] Hepatitis A Adult 2005-09-20 00:00:[address] [facility] Hep B, Adol or Pedi Dosage 2005-09-20 00:00:[address] [facility] Pneumococcal 13 Conjugate, PCV13 (Prevnar 13) 2005-09-20 00:00:[address] [facility] Polio (IPV/OPV) 2005-09-20 00:00:[address] [facility] DTAP 2005-09-20 00:00:[address] [facility] HIB 3 Dose Schedule 2005-09-20 00:00:[address] [facility] Hepatitis A Adult 2005-09-20 00:00:[address] [facility] Hep B, Adol or Pedi Dosage 2005-09-20 00:00:[address] [facility] Pneumococcal 13 Conjugate, PCV13 (Prevnar 13) 2005-09-20 00:00:[address] [facility] Polio (IPV/OPV) 2005-09-20 00:00:[address] [facility] DTAP 2005-09-20 00:00:[address] [facility] HIB 3 Dose Schedule 2005-09-20 00:00:[address] [facility] Hepatitis A Adult 2005-09-20 00:00:[address] [facility] Hep B, Adol or Pedi Dosage 2005-09-20 00:00:[address] [facility] Pneumococcal 13 Conjugate, PCV13 (Prevnar 13) 2005-09-20 00:00:[address] [facility] Polio (IPV/OPV) 2005-09-20 00:00:[address] [facility] DTAP 2005-09-20 00:00:[address] [facility] HIB 3 Dose Schedule 2005-09-20 00:00:[address] [facility] Hepatitis A Adult 2005-09-20 00:00:[address] [facility] Hep B, Adol or Pedi Dosage 2005-09-20 00:00:[address] [facility] Pneumococcal 13 Conjugate, PCV13 (Prevnar 13) 2005-09-20 00:00:[address] [facility] Polio (IPV/OPV) 2005-09-20 00:00:[address] [facility] DTAP 2005-09-20 00:00:[address] [facility] HIB 3 Dose Schedule 2005-09-20 00:00:[address] [facility] Hepatitis A Adult 2005-09-20 00:00:[address] [facility] Hep B, Adol or Pedi Dosage 2005-09-20 00:00:[address] [facility] Pneumococcal 13 Conjugate, PCV13 (Prevnar 13) 2005-09-20 00:00:[address] [facility] Polio (IPV/OPV) 2005-09-20 00:00:[address] [facility] DTAP 2005-09-20 00:00:[address] [facility] HIB 3 Dose Schedule 2005-09-20 00:00:[address] [facility] Hepatitis A Adult 2005-09-20 00:00:[address] [facility] Hep B, Adol or Pedi Dosage 2005-09-20 00:00:[address] [facility] Pneumococcal 13 Conjugate, PCV13 (Prevnar 13) 2005-09-20 00:00:[address] [facility] Polio (IPV/OPV) 2005-09-20 00:00:[address] [facility] DTAP 2005-09-20 00:00:[address] [facility] HIB 3 Dose Schedule 2005-09-20 00:00:[address] [facility] Hepatitis A Adult 2005-09-20 00:00:[address] [facility] Hep B, Adol or Pedi Dosage 2005-09-20 00:00:[address] [facility] Pneumococcal 13 Conjugate, PCV13 (Prevnar 13) 2005-09-20 00:00:[address] [facility] Polio (IPV/OPV) 2005-09-20 00:00:[address] [facility] DTAP 2005-09-20 00:00:[address] [facility] HIB 3 Dose Schedule 2005-09-20 00:00:[address] [facility] Hepatitis A Adult 2005-09-20 00:00:[address] [facility] Hep B, Adol or Pedi Dosage 2005-09-20 00:00:[address] [facility] Pneumococcal 13 Conjugate, PCV13 (Prevnar 13) 2005-09-20 00:00:[address] [facility] Polio (IPV/OPV) 2005-09-20 00:00:[address] [facility] DTAP 2005-09-20 00:00:[address] [facility] HIB 3 Dose Schedule 2005-09-20 00:00:[address] [facility] Hepatitis A Adult 2005-09-20 00:00:[address] [facility] Hep B, Adol or Pedi Dosage 2005-09-20 00:00:[address] [facility] Pneumococcal 13 Conjugate, PCV13 (Prevnar 13) 2005-09-20 00:00:[address] [facility] Polio (IPV/OPV) 2005-09-20 00:00:[address] [facility] DTAP 2005-09-20 00:00:[address] [facility] HIB 3 Dose Schedule 2005-09-20 00:00:[address] [facility] Hepatitis A Adult 2005-09-20 00:00:[address] [facility] Hep B, Adol or Pedi Dosage 2005-09-20 00:00:[address] [facility] Pneumococcal 13 Conjugate, PCV13 (Prevnar 13) 2005-09-20 00:00:[address] [facility] Polio (IPV/OPV) 2005-09-20 00:00:[address] [facility] DTAP 2005-09-20 00:00:[address] [facility] HIB 3 Dose Schedule 2005-09-20 00:00:[address] [facility] Hepatitis A Adult 2005-09-20 00:00:[address] [facility] Hep B, Adol or Pedi Dosage 2005-09-20 00:00:[address] [facility] Pneumococcal 13 Conjugate, PCV13 (Prevnar 13) 2005-09-20 00:00:[address] [facility] Polio (IPV/OPV) 2005-09-20 00:00:[address] [facility] DTaP, Unspecified Formulation 2005-09-20 00:00:[address] [facility] HEPATITIS A 2005-09-20 00:00:[address] [facility] HIB 4 Dose Schedule 2005-09-20 00:00:[address] [facility] Pneumococcal 7 Conjugate, PCV7 (Prevnar7) 2005-09-20 00:00:[address] [facility] IPV 2005-09-20 00:00:[address] [facility] DTAP 2005-09-20 00:00:[address] [facility] HIB 3 Dose Schedule 2005-09-20 00:00:[address] [facility] Hepatitis A Adult 2005-09-20 00:00:[address] [facility] Hep B, Adol or Pedi Dosage 2005-09-20 00:00:[address] [facility] Pneumococcal 13 Conjugate, PCV13 (Prevnar 13) 2005-09-20 00:00:[address] [facility] Polio (IPV/OPV) 2005-09-20 00:00:[address] [facility] DTaP, Unspecified Formulation 2005-09-20 00:00:00 Completed [facility] HEPATITIS A 2005-09-20 00:00:[address] [facility] HIB 4 Dose Schedule 2005-09-20 00:00:[address] [facility] Pneumococcal 7 Conjugate, PCV7 (Prevnar7) 2005-09-20 00:00:[address] [facility] IPV 2005-09-20 00:00:[address] [facility] DTAP 2005-09-20 00:00:[address] [facility] HIB 3 Dose Schedule 2005-09-20 00:00:[address] [facility] Hepatitis A Adult 2005-09-20 00:00:[address] [facility] Hep B, Adol or Pedi Dosage 2005-09-20 00:00:[address] [facility] Pneumococcal 13 Conjugate, PCV13 (Prevnar 13) 2005-09-20 00:00:[address] [facility] Polio (IPV/OPV) 2005-09-20 00:00:[address] [facility] DTaP, Unspecified Formulation 2005-09-20 00:00:[address] [facility] HEPATITIS A 2005-09-20 00:00:[address] [facility] HIB 4 Dose Schedule 2005-09-20 00:00:[address] [facility] Pneumococcal 7 Conjugate, PCV7 (Prevnar7) 2005-09-20 00:00:[address] [facility] IPV 2005-09-20 00:00:[address] [facility] DTAP 2005-09-20 00:00:[address] [facility] HIB 3 Dose Schedule 2005-09-20 00:00:[address] [facility] Hepatitis A Adult 2005-09-20 00:00:[address] [facility] Hep B, Adol or Pedi Dosage 2005-09-20 00:00:[address] [facility] Pneumococcal 13 Conjugate, PCV13 (Prevnar 13) 2005-09-20 00:00:[address] [facility] Polio (IPV/OPV) 2005-09-20 00:00:[address] [facility] DTaP, Unspecified Formulation 2005-09-20 00:00:[address] [facility] HEPATITIS A 2005-09-20 00:00:[address] [facility] HIB 4 Dose Schedule 2005-09-20 00:00:[address] [facility] Pneumococcal 7 Conjugate, PCV7 (Prevnar7) 2005-09-20 00:00:[address] [facility] IPV 2005-09-20 00:00:[address] [facility] DTAP 2005-09-20 00:00:[address] [facility] HIB 3 Dose Schedule 2005-09-20 00:00:[address] [facility] Hepatitis A Adult 2005-09-20 00:00:[address] [facility] Hep B, Adol or Pedi Dosage 2005-09-20 00:00:[address] [facility] Pneumococcal 13 Conjugate, PCV13 (Prevnar 13) 2005-09-20 00:00:[address] [facility] Polio (IPV/OPV) 2005-09-20 00:00:[address] [facility] DTaP, Unspecified Formulation 2005-09-20 00:00:[address] [facility] HEPATITIS A 2005-09-20 00:00:[address] [facility] HIB 4 Dose Schedule 2005-09-20 00:00:[address] [facility] Pneumococcal 7 Conjugate, PCV7 (Prevnar7) 2005-09-20 00:00:[address] [facility] IPV 2005-09-20 00:00:[address] [facility] DTAP 2005-09-20 00:00:[address] [facility] HIB 3 Dose Schedule 2005-09-20 00:00:[address] [facility] Hepatitis A Adult 2005-09-20 00:00:[address] [facility] Hep B, Adol or Pedi Dosage 2005-09-20 00:00:[address] [facility] Pneumococcal 13 Conjugate, PCV13 (Prevnar 13) 2005-09-20 00:00:[address] [facility] Polio (IPV/OPV) 2005-09-20 00:00:[address] [facility] DTaP, Unspecified Formulation 2005-09-20 00:00:[address] [facility] HEPATITIS A 2005-09-20 00:00:[address] [facility] HIB 4 Dose Schedule 2005-09-20 00:00:[address] [facility] Pneumococcal 7 Conjugate, PCV7 (Prevnar7) 2005-09-20 00:00:[address] [facility] IPV 2005-09-20 00:00:[address] [facility] DTAP 2005-09-20 00:00:[address] [facility] HIB 3 Dose Schedule 2005-09-20 00:00:[address] [facility] Hepatitis A Adult 2005-09-20 00:00:[address] [facility] Hep B, Adol or Pedi Dosage 2005-09-20 00:00:[address] [facility] Pneumococcal 13 Conjugate, PCV13 (Prevnar 13) 2005-09-20 00:00:[address] [facility] Polio (IPV/OPV) 2005-09-20 00:00:[address] [facility] DTaP, Unspecified Formulation 2005-09-20 00:00:[address] [facility] HEPATITIS A 2005-09-20 00:00:[address] [facility] HIB 4 Dose Schedule 2005-09-20 00:00:[address] [facility] Pneumococcal 7 Conjugate, PCV7 (Prevnar7) 2005-09-20 00:00:[address] [facility] IPV 2005-09-20 00:00:[address] [facility] DTAP 2005-09-20 00:00:[address] [facility] HIB 3 Dose Schedule 2005-09-20 00:00:[address] [facility] Hepatitis A Adult 2005-09-20 00:00:[address] [facility] Hep B, Adol or Pedi Dosage 2005-09-20 00:00:[address] [facility] Pneumococcal 13 Conjugate, PCV13 (Prevnar 13) 2005-09-20 00:00:[address] [facility] Polio (IPV/OPV) 2005-09-20 00:00:[address] [facility] DTaP, Unspecified Formulation 2005-09-20 00:00:[address] [facility] HEPATITIS A 2005-09-20 00:00:[address] [facility] HIB 4 Dose Schedule 2005-09-20 00:00:[address] [facility] Pneumococcal 7 Conjugate, PCV7 (Prevnar7) 2005-09-20 00:00:[address] [facility] IPV 2005-09-20 00:00:[address] [facility] DTAP 2005-09-20 00:00:[address] [facility] HIB 3 Dose Schedule 2005-09-20 00:00:[address] [facility] Hepatitis A Adult 2005-09-20 00:00:[address] [facility] Hep B, Adol or Pedi Dosage 2005-09-20 00:00:[address] [facility] Pneumococcal 13 Conjugate, PCV13 (Prevnar 13) 2005-09-20 00:00:[address] [facility] Polio (IPV/OPV) 2005-09-20 00:00:[address] [facility] DTaP, Unspecified Formulation 2005-09-20 00:00:[address] [facility] HEPATITIS A 2005-09-20 00:00:[address] [facility] HIB 4 Dose Schedule 2005-09-20 00:00:[address] [facility] Pneumococcal 7 Conjugate, PCV7 (Prevnar7) 2005-09-20 00:00:[address] [facility] IPV 2005-09-20 00:00:[address] [facility] DTAP 2005-09-20 00:00:[address] [facility] HIB 3 Dose Schedule 2005-09-20 00:00:[address] [facility] Hepatitis A Adult 2005-09-20 00:00:[address] [facility] Hep B, Adol or Pedi Dosage 2005-09-20 00:00:[address] [facility] Pneumococcal 13 Conjugate, PCV13 (Prevnar 13) 2005-09-20 00:00:[address] [facility] Polio (IPV/OPV) 2005-09-20 00:00:[address] [facility] DTaP, Unspecified Formulation 2005-09-20 00:00:[address] [facility] HEPATITIS A 2005-09-20 00:00:[address] [facility] HIB 4 Dose Schedule 2005-09-20 00:00:[address] [facility] Pneumococcal 7 Conjugate, PCV7 (Prevnar7) 2005-09-20 00:00:[address] [facility] IPV 2005-09-20 00:00:[address] [facility] DTAP 2005-09-20 00:00:[address] [facility] HIB 3 Dose Schedule 2005-09-20 00:00:[address] [facility] Hepatitis A Adult 2005-09-20 00:00:[address] [facility] Hep B, Adol or Pedi Dosage 2005-09-20 00:00:[address] [facility] Pneumococcal 13 Conjugate, PCV13 (Prevnar 13) 2005-09-20 00:00:[address] [facility] Polio (IPV/OPV) 2005-09-20 00:00:[address] [facility] DTaP, Unspecified Formulation 2005-09-20 00:00:[address] [facility] HEPATITIS A 2005-09-20 00:00:[address] [facility] HIB 4 Dose Schedule 2005-09-20 00:00:[address] [facility] Pneumococcal 7 Conjugate, PCV7 (Prevnar7) 2005-09-20 00:00:[address] [facility] IPV 2005-09-20 00:00:[address] [facility] DTAP 2005-09-20 00:00:[address] [facility] HIB 3 Dose Schedule 2005-09-20 00:00:[address] [facility] Hepatitis A Adult 2005-09-20 00:00:[address] [facility] Hep B, Adol or Pedi Dosage 2005-09-20 00:00:[address] [facility] Pneumococcal 13 Conjugate, PCV13 (Prevnar 13) 2005-09-20 00:00:[address] [facility] Polio (IPV/OPV) 2005-09-20 00:00:[address] [facility] DTaP, Unspecified Formulation 2005-09-20 00:00:[address] [facility] HEPATITIS A 2005-09-20 00:00:[address] [facility] HIB 4 Dose Schedule 2005-09-20 00:00:[address] [facility] Pneumococcal 7 Conjugate, PCV7 (Prevnar7) 2005-09-20 00:00:[address] [facility] IPV 2005-09-20 00:00:[address] [facility] DTAP 2005-09-20 00:00:[address] [facility] HIB 3 Dose Schedule 2005-09-20 00:00:[address] [facility] Hepatitis A Adult 2005-09-20 00:00:[address] [facility] Hep B, Adol or Pedi Dosage 2005-09-20 00:00:[address] [facility] Pneumococcal 13 Conjugate, PCV13 (Prevnar 13) 2005-09-20 00:00:[address] [facility] Polio (IPV/OPV) 2005-09-20 00:00:[address] [facility] DTaP, Unspecified Formulation 2005-09-20 00:00:[address] [facility] HEPATITIS A 2005-09-20 00:00:[address] [facility] HIB 4 Dose Schedule 2005-09-20 00:00:[address] [facility] Pneumococcal 7 Conjugate, PCV7 (Prevnar7) 2005-09-20 00:00:[address] [facility] IPV 2005-09-20 00:00:[address] [facility] DTAP 2005-09-20 00:00:[address] [facility] HIB 3 Dose Schedule 2005-09-20 00:00:[address] [facility] Hepatitis A Adult 2005-09-20 00:00:[address] [facility] Hep B, Adol or Pedi Dosage 2005-09-20 00:00:[address] [facility] Pneumococcal 13 Conjugate, PCV13 (Prevnar 13) 2005-09-20 00:00:[address] [facility] Polio (IPV/OPV) 2005-09-20 00:00:[address] [facility] DTaP, Unspecified Formulation 2005-09-20 00:00:[address] [facility] HEPATITIS A 2005-09-20 00:00:[address] [facility] HIB 4 Dose Schedule 2005-09-20 00:00:[address] [facility] Pneumococcal 7 Conjugate, PCV7 (Prevnar7) 2005-09-20 00:00:[address] [facility] IPV 2005-09-20 00:00:[address] [facility] DTAP 2005-09-20 00:00:[address] [facility] HIB 3 Dose Schedule 2005-09-20 00:00:[address] [facility] Hepatitis A Adult 2005-09-20 00:00:[address] [facility] Hep B, Adol or Pedi Dosage 2005-09-20 00:00:[address] [facility] Pneumococcal 13 Conjugate, PCV13 (Prevnar 13) 2005-09-20 00:00:[address] [facility] Polio (IPV/OPV) 2005-09-20 00:00:[address] [facility] DTaP, Unspecified Formulation 2005-09-20 00:00:[address] [facility] HEPATITIS A 2005-09-20 00:00:[address] [facility] HIB 4 Dose Schedule 2005-09-20 00:00:[address] [facility] Pneumococcal 7 Conjugate, PCV7 (Prevnar7) 2005-09-20 00:00:[address] [facility] IPV 2005-09-20 00:00:[address] [facility] DTAP 2005-09-20 00:00:[address] [facility] HIB 3 Dose Schedule 2005-09-20 00:00:[address] [facility] Hepatitis A Adult 2005-09-20 00:00:[address] [facility] Hep B, Adol or Pedi Dosage 2005-09-20 00:00:[address] [facility] Pneumococcal 13 Conjugate, PCV13 (Prevnar 13) 2005-09-20 00:00:[address] [facility] Polio (IPV/OPV) 2005-09-20 00:00:[address] [facility] DTaP, Unspecified Formulation 2005-09-20 00:00:[address] [facility] HEPATITIS A 2005-09-20 00:00:[address] [facility] HIB 4 Dose Schedule 2005-09-20 00:00:[address] [facility] Pneumococcal 7 Conjugate, PCV7 (Prevnar7) 2005-09-20 00:00:[address] [facility] IPV 2005-09-20 00:00:[address] [facility] DTAP 2005-09-20 00:00:[address] [facility] HIB 3 Dose Schedule 2005-09-20 00:00:[address] [facility] Hepatitis A Adult 2005-09-20 00:00:[address] [facility] Hep B, Adol or Pedi Dosage 2005-09-20 00:00:[address] [facility] Pneumococcal 13 Conjugate, PCV13 (Prevnar 13) 2005-09-20 00:00:[address] [facility] Polio (IPV/OPV) 2005-09-20 00:00:[address] [facility] DTaP, Unspecified Formulation 2005-09-20 00:00:[address] [facility] HEPATITIS A 2005-09-20 00:00:[address] [facility] HIB 4 Dose Schedule 2005-09-20 00:00:[address] [facility] Pneumococcal 7 Conjugate, PCV7 (Prevnar7) 2005-09-20 00:00:[address] [facility] IPV 2005-09-20 00:00:[address] [facility] DTAP 2005-09-20 00:00:[address] [facility] HIB 3 Dose Schedule 2005-09-20 00:00:[address] [facility] Hepatitis A Adult 2005-09-20 00:00:[address] [facility] Hep B, Adol or Pedi Dosage 2005-09-20 00:00:[address] [facility] Pneumococcal 13 Conjugate, PCV13 (Prevnar 13) 2005-09-20 00:00:[address] [facility] Polio (IPV/OPV) 2005-09-20 00:00:[address] [facility] DTaP, Unspecified Formulation 2005-09-20 00:00:[address] [facility] HEPATITIS A 2005-09-20 00:00:[address] [facility] HIB 4 Dose Schedule 2005-09-20 00:00:[address] [facility] Pneumococcal 7 Conjugate, PCV7 (Prevnar7) 2005-09-20 00:00:[address] [facility] IPV 2005-09-20 00:00:[address] [facility] DTAP 2005-09-20 00:00:[address] [facility] HIB 3 Dose Schedule 2005-09-20 00:00:[address] [facility] Hepatitis A Adult 2005-09-20 00:00:[address] [facility] Hep B, Adol or Pedi Dosage 2005-09-20 00:00:[address] [facility] Pneumococcal 13 Conjugate, PCV13 (Prevnar 13) 2005-09-20 00:00:[address] [facility] Polio (IPV/OPV) 2005-09-20 00:00:[address] [facility] DTaP, Unspecified Formulation 2005-09-20 00:00:[address] [facility] HEPATITIS A 2005-09-20 00:00:[address] [facility] HIB 4 Dose Schedule 2005-09-20 00:00:[address] [facility] Pneumococcal 7 Conjugate, PCV7 (Prevnar7) 2005-09-20 00:00:[address] [facility] IPV 2005-09-20 00:00:[address] [facility] DTAP 2005-09-20 00:00:[address] [facility] HIB 3 Dose Schedule 2005-09-20 00:00:[address] [facility] Hepatitis A Adult 2005-09-20 00:00:[address] [facility] Hep B, Adol or Pedi Dosage 2005-09-20 00:00:[address] [facility] Pneumococcal 13 Conjugate, PCV13 (Prevnar 13) 2005-09-20 00:00:[address] [facility] Polio (IPV/OPV) 2005-09-20 00:00:[address] [facility] DTaP, Unspecified Formulation 2005-09-20 00:00:[address] [facility] HEPATITIS A 2005-09-20 00:00:[address] [facility] HIB 4 Dose Schedule 2005-09-20 00:00:[address] [facility] Pneumococcal 7 Conjugate, PCV7 (Prevnar7) 2005-09-20 00:00:[address] [facility] IPV 2005-09-20 00:00:[address] [facility] DTAP 2005-09-20 00:00:[address] [facility] HIB 3 Dose Schedule 2005-09-20 00:00:[address] [facility] Hepatitis A Adult 2005-09-20 00:00:[address] [facility] Hep B, Adol or Pedi Dosage 2005-09-20 00:00:[address] [facility] Pneumococcal 13 Conjugate, PCV13 (Prevnar 13) 2005-09-20 00:00:[address] [facility] Polio (IPV/OPV) 2005-09-20 00:00:[address] [facility] DTaP, Unspecified Formulation 2005-09-20 00:00:[address] [facility] HEPATITIS A 2005-09-20 00:00:[address] [facility] HIB 4 Dose Schedule 2005-09-20 00:00:[address] [facility] Pneumococcal 7 Conjugate, PCV7 (Prevnar7) 2005-09-20 00:00:[address] [facility] IPV 2005-09-20 00:00:[address] [facility] DTAP 2005-09-20 00:00:[address] [facility] HIB 3 Dose Schedule 2005-09-20 00:00:[address] [facility] Hepatitis A Adult 2005-09-20 00:00:[address] [facility] Hep B, Adol or Pedi Dosage 2005-09-20 00:00:[address] [facility] Pneumococcal 13 Conjugate, PCV13 (Prevnar 13) 2005-09-20 00:00:[address] [facility] Polio (IPV/OPV) 2005-09-20 00:00:[address] [facility] DTaP, Unspecified Formulation 2005-09-20 00:00:[address] [facility] HEPATITIS A 2005-09-20 00:00:[address] [facility] HIB 4 Dose Schedule 2005-09-20 00:00:[address] [facility] Pneumococcal 7 Conjugate, PCV7 (Prevnar7) 2005-09-20 00:00:[address] [facility] IPV 2005-09-20 00:00:[address] [facility] DTAP 2005-09-20 00:00:00 Completed HIB 3 [...] 2005-09-20 00:00:00 Completed DTAP 2004-07-22 00:00:[address] [facility] Hep B, Adol or Pedi Dosage 2004-07-22 00:00:[address] [facility] MMR 2004-07-22 00:00:[address] [facility] Polio (IPV/OPV) 2004-07-22 00:00:[address] [facility] Varicella (varivax)(chicken pox) 2004-07-22 00:00:[address] [facility] DTAP 2004-07-22 00:00:[address] [facility] Hep B, Adol or Pedi Dosage 2004-07-22 00:00:[address] [facility] MMR 2004-07-22 00:00:[address] [facility] Polio (IPV/OPV) 2004-07-22 00:00:[address] [facility] Varicella (varivax)(chicken pox) 2004-07-22 00:00:[address] [facility] DTAP 2004-07-22 00:00:[address] [facility] Hep B, Adol or Pedi Dosage 2004-07-22 00:00:[address] [facility] MMR 2004-07-22 00:00:[address] [facility] Polio (IPV/OPV) 2004-07-22 00:00:[address] [facility] Varicella (varivax)(chicken pox) 2004-07-22 00:00:[address] [facility] DTAP 2004-07-22 00:00:[address] [facility] Hep B, Adol or Pedi Dosage 2004-07-22 00:00:[address] [facility] MMR 2004-07-22 00:00:[address] [facility] Polio (IPV/OPV) 2004-07-22 00:00:[address] [facility] Varicella (varivax)(chicken pox) 2004-07-22 00:00:[address] [facility] DTAP 2004-07-22 00:00:[address] [facility] Hep B, Adol or Pedi Dosage 2004-07-22 00:00:[address] [facility] MMR 2004-07-22 00:00:[address] [facility] Polio (IPV/OPV) 2004-07-22 00:00:[address] [facility] [facility] Varicella (varivax)(chicken pox) 2004-07-22 00:00:[address] [facility] DTAP 2004-07-22 00:00:[address] [facility] Hep B, Adol or Pedi Dosage 2004-07-22 00:00:[address] [facility] MMR 2004-07-22 00:00:[address] [facility] Polio (IPV/OPV) 2004-07-22 00:00:[address] [facility] Varicella (varivax)(chicken pox) 2004-07-22 00:00:[address] [facility] DTAP 2004-07-22 00:00:[address] [facility] Hep B, Adol or Pedi Dosage 2004-07-22 00:00:[address] [facility] MMR 2004-07-22 00:00:[address] [facility] Polio (IPV/OPV) 2004-07-22 00:00:[address] [facility] Varicella (varivax)(chicken pox) 2004-07-22 00:00:[address] [facility] DTAP 2004-07-22 00:00:[address] [facility] Hep B, Adol or Pedi Dosage 2004-07-22 00:00:[address] [facility] MMR 2004-07-22 00:00:[address] [facility] Polio (IPV/OPV) 2004-07-22 00:00:[address] [facility] Varicella (varivax)(chicken pox) 2004-07-22 00:00:[address] [facility] DTAP 2004-07-22 00:00:[address] [facility] Hep B, Adol or Pedi Dosage 2004-07-22 00:00:[address] [facility] MMR 2004-07-22 00:00:[address] [facility] Polio (IPV/OPV) 2004-07-22 00:00:[address] [facility] Varicella (varivax)(chicken pox) 2004-07-22 00:00:[address] [facility] DTAP 2004-07-22 00:00:[address] [facility] Hep B, Adol or Pedi Dosage 2004-07-22 00:00:[address] [facility] MMR 2004-07-22 00:00:[address] [facility] Polio (IPV/OPV) 2004-07-22 00:00:[address] [facility] Varicella (varivax)(chicken pox) 2004-07-22 00:00:[address] [facility] DTAP 2004-07-22 00:00:[address] [facility] Hep B, Adol or Pedi Dosage 2004-07-22 00:00:[address] [facility] MMR 2004-07-22 00:00:[address] [facility] Polio (IPV/OPV) 2004-07-22 00:00:[address] [facility] Varicella (varivax)(chicken pox) 2004-07-22 00:00:[address] [facility] DTAP 2004-07-22 00:00:[address] [facility] Hep B, Adol or Pedi Dosage 2004-07-22 00:00:[address] [facility] MMR 2004-07-22 00:00:[address] [facility] Polio (IPV/OPV) 2004-07-22 00:00:[address] [facility] Varicella (varivax)(chicken pox) 2004-07-22 00:00:[address] [facility] DTAP 2004-07-22 00:00:[address] [facility] Hep B, Adol or Pedi Dosage 2004-07-22 00:00:[address] [facility] MMR 2004-07-22 00:00:[address] [facility] Polio (IPV/OPV) 2004-07-22 00:00:[address] [facility] Varicella (varivax)(chicken pox) 2004-07-22 00:00:[address] [facility] DTAP 2004-07-22 00:00:[address] [facility] Hep B, Adol or Pedi Dosage 2004-07-22 00:00:[address] [facility] MMR 2004-07-22 00:00:[address] [facility] Polio (IPV/OPV) 2004-07-22 00:00:[address] [facility] Varicella (varivax)(chicken pox) 2004-07-22 00:00:[address] [facility] DTAP 2004-07-22 00:00:[address] [facility] Hep B, Adol or Pedi Dosage 2004-07-22 00:00:[address] [facility] MMR 2004-07-22 00:00:[address] [facility] Polio (IPV/OPV) 2004-07-22 00:00:[address] [facility] Varicella (varivax)(chicken pox) 2004-07-22 00:00:[address] [facility] DTAP 2004-07-22 00:00:[address] [facility] Hep B, Adol or Pedi Dosage 2004-07-22 00:00:[address] [facility] MMR 2004-07-22 00:00:[address] [facility] Polio (IPV/OPV) 2004-07-22 00:00:[address] [facility] Varicella (varivax)(chicken pox) 2004-07-22 00:00:[address] [facility] DTAP 2004-07-22 00:00:[address] [facility] Hep B, Adol or Pedi Dosage 2004-07-22 00:00:[address] [facility] MMR 2004-07-22 00:00:[address] [facility] Polio (IPV/OPV) 2004-07-22 00:00:[address] [facility] Varicella (varivax)(chicken pox) 2004-07-22 00:00:[address] [facility] DTAP 2004-07-22 00:00:[address] [facility] Hep B, Adol or Pedi Dosage 2004-07-22 00:00:[address] [facility] MMR 2004-07-22 00:00:[address] [facility] Polio (IPV/OPV) 2004-07-22 00:00:[address] [facility] Varicella (varivax)(chicken pox) 2004-07-22 00:00:[address] [facility] DTAP 2004-07-22 00:00:[address] [facility] Hep B, Adol or Pedi Dosage 2004-07-22 00:00:[address] [facility] MMR 2004-07-22 00:00:[address] [facility] Polio (IPV/OPV) 2004-07-22 00:00:[address] [facility] Varicella (varivax)(chicken pox) 2004-07-22 00:00:[address] [facility] DTAP 2004-07-22 00:00:[address] [facility] Hep B, Adol or Pedi Dosage 2004-07-22 00:00:[address] [facility] MMR 2004-07-22 00:00:[address] [facility] Polio (IPV/OPV) 2004-07-22 00:00:[address] [facility] Varicella (varivax)(chicken pox) 2004-07-22 00:00:[address] [facility] DTAP 2004-07-22 00:00:[address] [facility] Hep B, Adol or Pedi Dosage 2004-07-22 00:00:[address] [facility] MMR 2004-07-22 00:00:[address] [facility] Polio (IPV/OPV) 2004-07-22 00:00:[address] [facility] Varicella (varivax)(chicken pox) 2004-07-22 00:00:[address] [facility] DTAP 2004-07-22 00:00:[address] [facility] Hep B, Adol or Pedi Dosage 2004-07-22 00:00:[address] [facility] MMR 2004-07-22 00:00:[address] [facility] Polio (IPV/OPV) 2004-07-22 00:00:[address] [facility] Varicella (varivax)(chicken pox) 2004-07-22 00:00:[address] [facility] DTAP 2004-07-22 00:00:[address] [facility] Hep B, Adol or Pedi Dosage 2004-07-22 00:00:[address] [facility] MMR 2004-07-22 00:00:[address] [facility] Polio (IPV/OPV) 2004-07-22 00:00:[address] [facility] Varicella (varivax)(chicken pox) 2004-07-22 00:00:[address] [facility] DTAP 2004-07-22 00:00:[address] [facility] Hep B, Adol or Pedi Dosage 2004-07-22 00:00:[address] [facility] MMR 2004-07-22 00:00:[address] [facility] Polio (IPV/OPV) 2004-07-22 00:00:[address] [facility] Varicella (varivax)(chicken pox) 2004-07-22 00:00:[address] [facility] DTAP 2004-07-22 00:00:[address] [facility] Hep B, Adol or Pedi Dosage 2004-07-22 00:00:[address] [facility] MMR 2004-07-22 00:00:[address] [facility] Polio (IPV/OPV) 2004-07-22 00:00:[address] [facility] Varicella (varivax)(chicken pox) 2004-07-22 00:00:[address] [facility] DTAP 2004-07-22 00:00:[address] [facility] Hep B, Adol or Pedi Dosage 2004-07-22 00:00:[address] [facility] MMR 2004-07-22 00:00:[address] [facility] Polio (IPV/OPV) 2004-07-22 00:00:[address] [facility] Varicella (varivax)(chicken pox) 2004-07-22 00:00:[address] [facility] DTAP 2004-07-22 00:00:[address] [facility] Hep B, Adol or Pedi Dosage 2004-07-22 00:00:[address] [facility] MMR 2004-07-22 00:00:[address] [facility] Polio (IPV/OPV) 2004-07-22 00:00:[address] [facility] Varicella (varivax)(chicken pox) 2004-07-22 00:00:[address] [facility] DTAP 2004-07-22 00:00:[address] [facility] Hep B, Adol or Pedi Dosage 2004-07-22 00:00:[address] [facility] MMR 2004-07-22 00:00:[address] [facility] Polio (IPV/OPV) 2004-07-22 00:00:[address] [facility] Varicella (varivax)(chicken pox) 2004-07-22 00:00:[address] [facility] DTAP 2004-07-22 00:00:[address] [facility] Hep B, Adol or Pedi Dosage 2004-07-22 00:00:[address] [facility] MMR 2004-07-22 00:00:[address] [facility] Polio (IPV/OPV) 2004-07-22 00:00:[address] [facility] Varicella (varivax)(chicken pox) 2004-07-22 00:00:[address] [facility] DTAP 2004-07-22 00:00:[address] [facility] Hep B, Adol or Pedi Dosage 2004-07-22 00:00:[address] [facility] MMR 2004-07-22 00:00:[address] [facility] Polio (IPV/OPV) 2004-07-22 00:00:[address] [facility] Varicella (varivax)(chicken pox) 2004-07-22 00:00:[address] [facility] DTaP, Unspecified Formulation 2004-07-22 00:00:[address] [facility] IPV 2004-07-22 00:00:[address] [facility] DTAP 2004-07-22 00:00:[address] [facility] Hep B, Adol or Pedi Dosage 2004-07-22 00:00:[address] [facility] MMR 2004-07-22 00:00:[address] [facility] Polio (IPV/OPV) 2004-07-22 00:00:[address] [facility] Varicella (varivax)(chicken pox) 2004-07-22 00:00:[address] [facility] DTaP, Unspecified Formulation 2004-07-22 00:00:[address] [facility] IPV 2004-07-22 00:00:[address] [facility] DTAP 2004-07-22 00:00:[address] [facility] Hep B, Adol or Pedi Dosage 2004-07-22 00:00:[address] [facility] MMR 2004-07-22 00:00:[address] [facility] Polio (IPV/OPV) 2004-07-22 00:00:[address] [facility] Varicella (varivax)(chicken pox) 2004-07-22 00:00:[address] [facility] DTaP, Unspecified Formulation 2004-07-22 00:00:[address] [facility] IPV 2004-07-22 00:00:[address] [facility] DTAP 2004-07-22 00:00:[address] [facility] Hep B, Adol or Pedi Dosage 2004-07-22 00:00:[address] [facility] MMR 2004-07-22 00:00:[address] [facility] Polio (IPV/OPV) 2004-07-22 00:00:[address] [facility] Varicella (varivax)(chicken pox) 2004-07-22 00:00:[address] [facility] DTaP, Unspecified Formulation 2004-07-22 00:00:[address] [facility] IPV 2004-07-22 00:00:[address] [facility] DTAP 2004-07-22 00:00:[address] [facility] Hep B, Adol or Pedi Dosage 2004-07-22 00:00:[address] [facility] MMR 2004-07-22 00:00:[address] [facility] Polio (IPV/OPV) 2004-07-22 00:00:[address] [facility] Varicella (varivax)(chicken pox) 2004-07-22 00:00:[address] [facility] DTaP, Unspecified Formulation 2004-07-22 00:00:[address] [facility] IPV 2004-07-22 00:00:[address] [facility] DTAP 2004-07-22 00:00:[address] [facility] Hep B, Adol or Pedi Dosage 2004-07-22 00:00:[address] [facility] MMR 2004-07-22 00:00:[address] [facility] Polio (IPV/OPV) 2004-07-22 00:00:[address] [facility] Varicella (varivax)(chicken pox) 2004-07-22 00:00:[address] [facility] DTaP, Unspecified Formulation 2004-07-22 00:00:[address] [facility] IPV 2004-07-22 00:00:[address] [facility] DTAP 2004-07-22 00:00:[address] [facility] Hep B, Adol or Pedi Dosage 2004-07-22 00:00:[address] [facility] MMR 2004-07-22 00:00:[address] [facility] Polio (IPV/OPV) 2004-07-22 00:00:[address] [facility] Varicella (varivax)(chicken pox) 2004-07-22 00:00:[address] [facility] DTaP, Unspecified Formulation 2004-07-22 00:00:[address] [facility] IPV 2004-07-22 00:00:[address] [facility] DTAP 2004-07-22 00:00:[address] [facility] Hep B, Adol or Pedi Dosage 2004-07-22 00:00:[address] [facility] MMR 2004-07-22 00:00:[address] [facility] Polio (IPV/OPV) 2004-07-22 00:00:[address] [facility] Varicella (varivax)(chicken pox) 2004-07-22 00:00:[address] [facility] DTaP, Unspecified Formulation 2004-07-22 00:00:[address] [facility] IPV 2004-07-22 00:00:[address] [facility] DTAP 2004-07-22 00:00:[address] [facility] Hep B, Adol or Pedi Dosage 2004-07-22 00:00:[address] [facility] MMR 2004-07-22 00:00:[address] [facility] Polio (IPV/OPV) 2004-07-22 00:00:[address] [facility] Varicella (varivax)(chicken pox) 2004-07-22 00:00:[address] [facility] DTaP, Unspecified Formulation 2004-07-22 00:00:[address] [facility] IPV 2004-07-22 00:00:[address] [facility] DTAP 2004-07-22 00:00:[address] [facility] Hep B, Adol or Pedi Dosage 2004-07-22 00:00:[address] [facility] MMR 2004-07-22 00:00:[address] [facility] Polio (IPV/OPV) 2004-07-22 00:00:[address] [facility] Varicella (varivax)(chicken pox) 2004-07-22 00:00:[address] [facility] DTaP, Unspecified Formulation 2004-07-22 00:00:[address] [facility] IPV 2004-07-22 00:00:[address] [facility] DTAP 2004-07-22 00:00:[address] [facility] Hep B, Adol or Pedi Dosage 2004-07-22 00:00:[address] [facility] MMR 2004-07-22 00:00:[address] [facility] Polio (IPV/OPV) 2004-07-22 00:00:[address] [facility] Varicella (varivax)(chicken pox) 2004-07-22 00:00:[address] [facility] DTaP, Unspecified Formulation 2004-07-22 00:00:[address] [facility] IPV 2004-07-22 00:00:[address] [facility] DTAP 2004-07-22 00:00:[address] [facility] Hep B, Adol or Pedi Dosage 2004-07-22 00:00:[address] [facility] MMR 2004-07-22 00:00:[address] [facility] Polio (IPV/OPV) 2004-07-22 00:00:[address] [facility] Varicella (varivax)(chicken pox) 2004-07-22 00:00:[address] [facility] DTaP, Unspecified Formulation 2004-07-22 00:00:[address] [facility] IPV 2004-07-22 00:00:[address] [facility] DTAP 2004-07-22 00:00:[address] [facility] Hep B, Adol or Pedi Dosage 2004-07-22 00:00:[address] [facility] MMR 2004-07-22 00:00:[address] [facility] Polio (IPV/OPV) 2004-07-22 00:00:[address] [facility] Varicella (varivax)(chicken pox) 2004-07-22 00:00:[address] [facility] DTaP, Unspecified Formulation 2004-07-22 00:00:[address] [facility] IPV 2004-07-22 00:00:[address] [facility] DTAP 2004-07-22 00:00:[address] [facility] Hep B, Adol or Pedi Dosage 2004-07-22 00:00:[address] [facility] MMR 2004-07-22 00:00:[address] [facility] Polio (IPV/OPV) 2004-07-22 00:00:[address] [facility] Varicella (varivax)(chicken pox) 2004-07-22 00:00:[address] [facility] DTaP, Unspecified Formulation 2004-07-22 00:00:[address] [facility] IPV 2004-07-22 00:00:[address] [facility] DTAP 2004-07-22 00:00:[address] [facility] Hep B, Adol or Pedi Dosage 2004-07-22 00:00:[address] [facility] MMR 2004-07-22 00:00:[address] [facility] Polio (IPV/OPV) 2004-07-22 00:00:[address] [facility] Varicella (varivax)(chicken pox) 2004-07-22 00:00:[address] [facility] DTaP, Unspecified Formulation 2004-07-22 00:00:[address] [facility] IPV 2004-07-22 00:00:[address] [facility] DTAP 2004-07-22 00:00:[address] [facility] Hep B, Adol or Pedi Dosage 2004-07-22 00:00:[address] [facility] MMR 2004-07-22 00:00:[address] [facility] Polio (IPV/OPV) 2004-07-22 00:00:[address] [facility] Varicella (varivax)(chicken pox) 2004-07-22 00:00:[address] [facility] DTaP, Unspecified Formulation 2004-07-22 00:00:[address] [facility] IPV 2004-07-22 00:00:[address] [facility] DTAP 2004-07-22 00:00:[address] [facility] Hep B, Adol or Pedi Dosage 2004-07-22 00:00:[address] [facility] MMR 2004-07-22 00:00:[address] [facility] Polio (IPV/OPV) 2004-07-22 00:00:[address] [facility] Varicella (varivax)(chicken pox) 2004-07-22 00:00:[address] [facility] DTaP, Unspecified Formulation 2004-07-22 00:00:[address] [facility] IPV 2004-07-22 00:00:[address] [facility] DTAP 2004-07-22 00:00:[address] [facility] Hep B, Adol or Pedi Dosage 2004-07-22 00:00:[address] [facility] MMR 2004-07-22 00:00:[address] [facility] Polio (IPV/OPV) 2004-07-22 00:00:[address] [facility] Varicella (varivax)(chicken pox) 2004-07-22 00:00:[address] [facility] DTaP, Unspecified Formulation 2004-07-22 00:00:[address] [facility] IPV 2004-07-22 00:00:[address] [facility] DTAP 2004-07-22 00:00:[address] [facility] Hep B, Adol or Pedi Dosage 2004-07-22 00:00:[address] [facility] MMR 2004-07-22 00:00:[address] [facility] Polio (IPV/OPV) 2004-07-22 00:00:[address] [facility] Varicella (varivax)(chicken pox) 2004-07-22 00:00:[address] [facility] DTaP, Unspecified Formulation 2004-07-22 00:00:[address] [facility] IPV 2004-07-22 00:00:[address] [facility] DTAP 2004-07-22 00:00:[address] [facility] Hep B, Adol or Pedi Dosage 2004-07-22 00:00:[address] [facility] MMR 2004-07-22 00:00:[address] [facility] Polio (IPV/OPV) 2004-07-22 00:00:[address] [facility] Varicella (varivax)(chicken pox) 2004-07-22 00:00:[address] [facility] DTaP, Unspecified Formulation 2004-07-22 00:00:[address] [facility] IPV 2004-07-22 00:00:[address] [facility] DTAP 2004-07-22 00:00:[address] [facility] Hep B, Adol or Pedi Dosage 2004-07-22 00:00:[address] [facility] MMR 2004-07-22 00:00:[address] [facility] Polio (IPV/OPV) 2004-07-22 00:00:[address] [facility] Varicella (varivax)(chicken pox) 2004-07-22 00:00:[address] [facility] DTaP, Unspecified Formulation 2004-07-22 00:00:[address] [facility] IPV 2004-07-22 00:00:[address] [facility] DTAP 2004-07-22 00:00:[address] [facility] Hep B, Adol or Pedi Dosage 2004-07-22 00:00:[address] [facility] MMR 2004-07-22 00:00:[address] [facility] Polio (IPV/OPV) 2004-07-22 00:00:[address] [facility] Varicella (varivax)(chicken pox) 2004-07-22 00:00:[address] [facility] DTaP, Unspecified Formulation 2004-07-22 00:00:[address] [facility] IPV 2004-07-22 00:00:[address] [facility] DTAP 2004-07-22 00:00:00 Completed Hep B, Adol or Pedi Dosage 2004-07-22 00:00:00 Completed MMR 2004-07-22 00:00:00 Completed Polio (IPV/OPV) 2004-07-22 00:00:00 Completed Varicella (varivax)(chicken pox) 2004-07-22 00:00:00 Completed DTaP, Unspecified Formulation 2004-07-22 00:00:00 Completed IPV 2004-07-22 00:00:00 Completed DTAP 2003-06-04 00:00:[address] [facility] HIB 3 Dose Schedule 2003-06-04 00:00:[address] [facility] Hep B, Adol or Pedi Dosage 2003-06-04 00:00:[address] [facility] MMR 2003-06-04 00:00:[address] [facility] Polio (IPV/OPV) 2003-06-04 00:00:[address] [facility] Varicella (varivax)(chicken pox) 2003-06-04 00:00:[address] [facility] DTAP 2003-06-04 00:00:[address] [facility] HIB 3 Dose Schedule 2003-06-04 00:00:[address] [facility] Hep B, Adol or Pedi Dosage 2003-06-04 00:00:[address] [facility] MMR 2003-06-04 00:00:[address] [facility] Polio (IPV/OPV) 2003-06-04 00:00:[address] [facility] Varicella (varivax)(chicken pox) 2003-06-04 00:00:[address] [facility] DTAP 2003-06-04 00:00:[address] [facility] HIB 3 Dose Schedule 2003-06-04 00:00:[address] [facility] Hep B, Adol or Pedi Dosage 2003-06-04 00:00:[address] [facility] MMR 2003-06-04 00:00:[address] [facility] Polio (IPV/OPV) 2003-06-04 00:00:[address] [facility] Varicella (varivax)(chicken pox) 2003-06-04 00:00:[address] [facility] DTAP 2003-06-04 00:00:[address] [facility] HIB 3 Dose Schedule 2003-06-04 00:00:[address] [facility] Hep B, Adol or Pedi Dosage 2003-06-04 00:00:[address] [facility] MMR 2003-06-04 00:00:[address] [facility] Polio (IPV/OPV) 2003-06-04 00:00:[address] [facility] Varicella (varivax)(chicken pox) 2003-06-04 00:00:[address] [facility] DTAP 2003-06-04 00:00:[address] [facility] HIB 3 Dose Schedule 2003-06-04 00:00:[address] [facility] Hep B, Adol or Pedi Dosage 2003-06-04 00:00:[address] [facility] MMR 2003-06-04 00:00:[address] [facility] Polio (IPV/OPV) 2003-06-04 00:00:[address] [facility] Varicella (varivax)(chicken pox) 2003-06-04 00:00:[address] [facility] DTAP 2003-06-04 00:00:[address] [facility] HIB 3 Dose Schedule 2003-06-04 00:00:[address] [facility] Hep B, Adol or Pedi Dosage 2003-06-04 00:00:[address] [facility] MMR 2003-06-04 00:00:[address] [facility] Polio (IPV/OPV) 2003-06-04 00:00:[address] [facility] Varicella (varivax)(chicken pox) 2003-06-04 00:00:[address] [facility] DTAP 2003-06-04 00:00:[address] [facility] HIB 3 Dose Schedule 2003-06-04 00:00:[address] [facility] Hep B, Adol or Pedi Dosage 2003-06-04 00:00:[address] [facility] MMR 2003-06-04 00:00:[address] [facility] Polio (IPV/OPV) 2003-06-04 00:00:[address] [facility] Varicella (varivax)(chicken pox) 2003-06-04 00:00:[address] [facility] DTAP 2003-06-04 00:00:[address] [facility] HIB 3 Dose Schedule 2003-06-04 00:00:[address] [facility] Hep B, Adol or Pedi Dosage 2003-06-04 00:00:[address] [facility] MMR 2003-06-04 00:00:[address] [facility] Polio (IPV/OPV) 2003-06-04 00:00:[address] [facility] Varicella (varivax)(chicken pox) 2003-06-04 00:00:[address] [facility] DTAP 2003-06-04 00:00:[address] [facility] HIB 3 Dose Schedule 2003-06-04 00:00:[address] [facility] Hep B, Adol or Pedi Dosage 2003-06-04 00:00:[address] [facility] MMR 2003-06-04 00:00:[address] [facility] Polio (IPV/OPV) 2003-06-04 00:00:[address] [facility] Varicella (varivax)(chicken pox) 2003-06-04 00:00:[address] [facility] DTAP 2003-06-04 00:00:[address] [facility] HIB 3 Dose Schedule 2003-06-04 00:00:[address] [facility] Hep B, Adol or Pedi Dosage 2003-06-04 00:00:[address] [facility] MMR 2003-06-04 00:00:[address] [facility] Polio (IPV/OPV) 2003-06-04 00:00:[address] [facility] Varicella (varivax)(chicken pox) 2003-06-04 00:00:[address] [facility] DTAP 2003-06-04 00:00:[address] [facility] HIB 3 Dose Schedule 2003-06-04 00:00:[address] [facility] Hep B, Adol or Pedi Dosage 2003-06-04 00:00:[address] [facility] MMR 2003-06-04 00:00:[address] [facility] Polio (IPV/OPV) 2003-06-04 00:00:[address] [facility] Varicella (varivax)(chicken pox) 2003-06-04 00:00:[address] [facility] DTAP 2003-06-04 00:00:[address] [facility] HIB 3 Dose Schedule 2003-06-04 00:00:[address] [facility] Hep B, Adol or Pedi Dosage 2003-06-04 00:00:[address] [facility] MMR 2003-06-04 00:00:[address] [facility] Polio (IPV/OPV) 2003-06-04 00:00:[address] [facility] Varicella (varivax)(chicken pox) 2003-06-04 00:00:[address] [facility] DTAP 2003-06-04 00:00:[address] [facility] HIB 3 Dose Schedule 2003-06-04 00:00:[address] [facility] Hep B, Adol or Pedi Dosage 2003-06-04 00:00:[address] [facility] MMR 2003-06-04 00:00:[address] [facility] Polio (IPV/OPV) 2003-06-04 00:00:[address] [facility] Varicella (varivax)(chicken pox) 2003-06-04 00:00:[address] [facility] DTAP 2003-06-04 00:00:[address] [facility] HIB 3 Dose Schedule 2003-06-04 00:00:[address] [facility] Hep B, Adol or Pedi Dosage 2003-06-04 00:00:[address] [facility] MMR 2003-06-04 00:00:[address] [facility] Polio (IPV/OPV) 2003-06-04 00:00:[address] [facility] Varicella (varivax)(chicken pox) 2003-06-04 00:00:[address] [facility] DTAP 2003-06-04 00:00:[address] [facility] HIB 3 Dose Schedule 2003-06-04 00:00:[address] [facility] Hep B, Adol or Pedi Dosage 2003-06-04 00:00:[address] [facility] MMR 2003-06-04 00:00:[address] [facility] Polio (IPV/OPV) 2003-06-04 00:00:[address] [facility] Varicella (varivax)(chicken pox) 2003-06-04 00:00:[address] [facility] DTAP 2003-06-04 00:00:[address] [facility] HIB 3 Dose Schedule 2003-06-04 00:00:[address] [facility] Hep B, Adol or Pedi Dosage 2003-06-04 00:00:[address] [facility] MMR 2003-06-04 00:00:[address] [facility] Polio (IPV/OPV) 2003-06-04 00:00:[address] [facility] Varicella (varivax)(chicken pox) 2003-06-04 00:00:[address] [facility] DTAP 2003-06-04 00:00:[address] [facility] HIB 3 Dose Schedule 2003-06-04 00:00:[address] [facility] Hep B, Adol or Pedi Dosage 2003-06-04 00:00:[address] [facility] MMR 2003-06-04 00:00:[address] [facility] Polio (IPV/OPV) 2003-06-04 00:00:[address] [facility] Varicella (varivax)(chicken pox) 2003-06-04 00:00:[address] [facility] DTAP 2003-06-04 00:00:[address] [facility] HIB 3 Dose Schedule 2003-06-04 00:00:[address] [facility] Hep B, Adol or Pedi Dosage 2003-06-04 00:00:[address] [facility] MMR 2003-06-04 00:00:[address] [facility] Polio (IPV/OPV) 2003-06-04 00:00:[address] [facility] Varicella (varivax)(chicken pox) 2003-06-04 00:00:[address] [facility] DTAP 2003-06-04 00:00:[address] [facility] HIB 3 Dose Schedule 2003-06-04 00:00:[address] [facility] Hep B, Adol or Pedi Dosage 2003-06-04 00:00:[address] [facility] MMR 2003-06-04 00:00:[address] [facility] Polio (IPV/OPV) 2003-06-04 00:00:[address] [facility] Varicella (varivax)(chicken pox) 2003-06-04 00:00:[address] [facility] DTAP 2003-06-04 00:00:[address] [facility] HIB 3 Dose Schedule 2003-06-04 00:00:[address] [facility] Hep B, Adol or Pedi Dosage 2003-06-04 00:00:[address] [facility] MMR 2003-06-04 00:00:[address] [facility] Polio (IPV/OPV) 2003-06-04 00:00:[address] [facility] Varicella (varivax)(chicken pox) 2003-06-04 00:00:[address] [facility] DTAP 2003-06-04 00:00:[address] [facility] HIB 3 Dose Schedule 2003-06-04 00:00:[address] [facility] Hep B, Adol or Pedi Dosage 2003-06-04 00:00:[address] [facility] MMR 2003-06-04 00:00:[address] [facility] Polio (IPV/OPV) 2003-06-04 00:00:[address] [facility] Varicella (varivax)(chicken pox) 2003-06-04 00:00:[address] [facility] DTAP 2003-06-04 00:00:[address] [facility] HIB 3 Dose Schedule 2003-06-04 00:00:[address] [facility] Hep B, Adol or Pedi Dosage 2003-06-04 00:00:[address] [facility] MMR 2003-06-04 00:00:[address] [facility] Polio (IPV/OPV) 2003-06-04 00:00:[address] [facility] Varicella (varivax)(chicken pox) 2003-06-04 00:00:[address] [facility] DTAP 2003-06-04 00:00:[address] [facility] HIB 3 Dose Schedule 2003-06-04 00:00:[address] [facility] Hep B, Adol or Pedi Dosage 2003-06-04 00:00:[address] [facility] MMR 2003-06-04 00:00:[address] [facility] Polio (IPV/OPV) 2003-06-04 00:00:[address] [facility] Varicella (varivax)(chicken pox) 2003-06-04 00:00:[address] [facility] DTAP 2003-06-04 00:00:[address] [facility] HIB 3 Dose Schedule 2003-06-04 00:00:[address] [facility] Hep B, Adol or Pedi Dosage 2003-06-04 00:00:[address] [facility] MMR 2003-06-04 00:00:[address] [facility] Polio (IPV/OPV) 2003-06-04 00:00:[address] [facility] Varicella (varivax)(chicken pox) 2003-06-04 00:00:[address] [facility] DTAP 2003-06-04 00:00:[address] [facility] HIB 3 Dose Schedule 2003-06-04 00:00:[address] [facility] Hep B, Adol or Pedi Dosage 2003-06-04 00:00:[address] [facility] MMR 2003-06-04 00:00:[address] [facility] Polio (IPV/OPV) 2003-06-04 00:00:[address] [facility] Varicella (varivax)(chicken pox) 2003-06-04 00:00:[address] [facility] DTAP 2003-06-04 00:00:[address] [facility] HIB 3 Dose Schedule 2003-06-04 00:00:[address] [facility] Hep B, Adol or Pedi Dosage 2003-06-04 00:00:[address] [facility] MMR 2003-06-04 00:00:[address] [facility] Polio (IPV/OPV) 2003-06-04 00:00:[address] [facility] Varicella (varivax)(chicken pox) 2003-06-04 00:00:[address] [facility] DTAP 2003-06-04 00:00:[address] [facility] HIB 3 Dose Schedule 2003-06-04 00:00:[address] [facility] Hep B, Adol or Pedi Dosage 2003-06-04 00:00:[address] [facility] MMR 2003-06-04 00:00:[address] [facility] Polio (IPV/OPV) 2003-06-04 00:00:[address] [facility] Varicella (varivax)(chicken pox) 2003-06-04 00:00:[address] [facility] DTAP 2003-06-04 00:00:[address] [facility] HIB 3 Dose Schedule 2003-06-04 00:00:[address] [facility] Hep B, Adol or Pedi Dosage 2003-06-04 00:00:[address] [facility] MMR 2003-06-04 00:00:[address] [facility] Polio (IPV/OPV) 2003-06-04 00:00:[address] [facility] Varicella (varivax)(chicken pox) 2003-06-04 00:00:[address] [facility] DTAP 2003-06-04 00:00:[address] [facility] HIB 3 Dose Schedule 2003-06-04 00:00:[address] [facility] Hep B, Adol or Pedi Dosage 2003-06-04 00:00:[address] [facility] MMR 2003-06-04 00:00:[address] [facility] Polio (IPV/OPV) 2003-06-04 00:00:[address] [facility] Varicella (varivax)(chicken pox) 2003-06-04 00:00:[address] [facility] DTAP 2003-06-04 00:00:[address] [facility] HIB 3 Dose Schedule 2003-06-04 00:00:[address] [facility] Hep B, Adol or Pedi Dosage 2003-06-04 00:00:[address] [facility] MMR 2003-06-04 00:00:[address] [facility] Polio (IPV/OPV) 2003-06-04 00:00:[address] [facility] Varicella (varivax)(chicken pox) 2003-06-04 00:00:[address] [facility] DTaP, Unspecified Formulation 2003-06-04 00:00:[address] [facility] HIB 4 Dose Schedule 2003-06-04 00:00:[address] [facility] IPV 2003-06-04 00:00:[address] [facility] DTAP 2003-06-04 00:00:[address] [facility] HIB 3 Dose Schedule 2003-06-04 00:00:[address] [facility] Hep B, Adol or Pedi Dosage 2003-06-04 00:00:[address] [facility] MMR 2003-06-04 00:00:[address] [facility] Polio (IPV/OPV) 2003-06-04 00:00:[address] [facility] Varicella (varivax)(chicken pox) 2003-06-04 00:00:[address] [facility] DTaP, Unspecified Formulation 2003-06-04 00:00:[address] [facility] HIB 4 Dose Schedule 2003-06-04 00:00:[address] [facility] IPV 2003-06-04 00:00:[address] [facility] DTAP 2003-06-04 00:00:[address] [facility] HIB 3 Dose Schedule 2003-06-04 00:00:[address] [facility] Hep B, Adol or Pedi Dosage 2003-06-04 00:00:[address] [facility] MMR 2003-06-04 00:00:[address] [facility] Polio (IPV/OPV) 2003-06-04 00:00:[address] [facility] Varicella (varivax)(chicken pox) 2003-06-04 00:00:[address] [facility] DTaP, Unspecified Formulation 2003-06-04 00:00:[address] [facility] HIB 4 Dose Schedule 2003-06-04 00:00:[address] [facility] IPV 2003-06-04 00:00:[address] [facility] DTAP 2003-06-04 00:00:[address] [facility] HIB 3 Dose Schedule 2003-06-04 00:00:[address] [facility] Hep B, Adol or Pedi Dosage 2003-06-04 00:00:[address] [facility] MMR 2003-06-04 00:00:[address] [facility] Polio (IPV/OPV) 2003-06-04 00:00:[address] [facility] Varicella (varivax)(chicken pox) 2003-06-04 00:00:[address] [facility] DTaP, Unspecified Formulation 2003-06-04 00:00:[address] [facility] HIB 4 Dose Schedule 2003-06-04 00:00:[address] [facility] IPV 2003-06-04 00:00:[address] [facility] DTAP 2003-06-04 00:00:[address] [facility] HIB 3 Dose Schedule 2003-06-04 00:00:[address] [facility] Hep B, Adol or Pedi Dosage 2003-06-04 00:00:[address] [facility] MMR 2003-06-04 00:00:[address] [facility] Polio (IPV/OPV) 2003-06-04 00:00:[address] [facility] Varicella (varivax)(chicken pox) 2003-06-04 00:00:[address] [facility] DTaP, Unspecified Formulation 2003-06-04 00:00:[address] [facility] HIB 4 Dose Schedule 2003-06-04 00:00:[address] [facility] IPV 2003-06-04 00:00:[address] [facility] DTAP 2003-06-04 00:00:[address] [facility] HIB 3 Dose Schedule 2003-06-04 00:00:[address] [facility] Hep B, Adol or Pedi Dosage 2003-06-04 00:00:[address] [facility] MMR 2003-06-04 00:00:[address] [facility] Polio (IPV/OPV) 2003-06-04 00:00:[address] [facility] Varicella (varivax)(chicken pox) 2003-06-04 00:00:[address] [facility] DTaP, Unspecified Formulation 2003-06-04 00:00:[address] [facility] HIB 4 Dose Schedule 2003-06-04 00:00:[address] [facility] IPV 2003-06-04 00:00:[address] [facility] DTAP 2003-06-04 00:00:[address] [facility] HIB 3 Dose Schedule 2003-06-04 00:00:[address] [facility] Hep B, Adol or Pedi Dosage 2003-06-04 00:00:[address] [facility] MMR 2003-06-04 00:00:[address] [facility] Polio (IPV/OPV) 2003-06-04 00:00:[address] [facility] Varicella (varivax)(chicken pox) 2003-06-04 00:00:[address] [facility] DTaP, Unspecified Formulation 2003-06-04 00:00:[address] [facility] HIB 4 Dose Schedule 2003-06-04 00:00:[address] [facility] IPV 2003-06-04 00:00:[address] [facility] DTAP 2003-06-04 00:00:[address] [facility] HIB 3 Dose Schedule 2003-06-04 00:00:[address] [facility] Hep B, Adol or Pedi Dosage 2003-06-04 00:00:[address] [facility] MMR 2003-06-04 00:00:[address] [facility] Polio (IPV/OPV) 2003-06-04 00:00:[address] [facility] [facility] Varicella (varivax)(chicken pox) 2003-06-04 00:00:[address] [facility] DTaP, Unspecified Formulation 2003-06-04 00:00:[address] [facility] HIB 4 Dose Schedule 2003-06-04 00:00:[address] [facility] IPV 2003-06-04 00:00:[address] [facility] DTAP 2003-06-04 00:00:[address] [facility] HIB 3 Dose Schedule 2003-06-04 00:00:[address] [facility] Hep B, Adol or Pedi Dosage 2003-06-04 00:00:[address] [facility] MMR 2003-06-04 00:00:[address] [facility] Polio (IPV/OPV) 2003-06-04 00:00:[address] [facility] Varicella (varivax)(chicken pox) 2003-06-04 00:00:[address] [facility] DTaP, Unspecified Formulation 2003-06-04 00:00:[address] [facility] HIB 4 Dose Schedule 2003-06-04 00:00:[address] [facility] IPV 2003-06-04 00:00:[address] [facility] DTAP 2003-06-04 00:00:[address] [facility] HIB 3 Dose Schedule 2003-06-04 00:00:[address] [facility] Hep B, Adol or Pedi Dosage 2003-06-04 00:00:[address] [facility] MMR 2003-06-04 00:00:[address] [facility] Polio (IPV/OPV) 2003-06-04 00:00:[address] [facility] Varicella (varivax)(chicken pox) 2003-06-04 00:00:[address] [facility] DTaP, Unspecified Formulation 2003-06-04 00:00:[address] [facility] HIB 4 Dose Schedule 2003-06-04 00:00:[address] [facility] IPV 2003-06-04 00:00:[address] [facility] DTAP 2003-06-04 00:00:[address] [facility] HIB 3 Dose Schedule 2003-06-04 00:00:[address] [facility] Hep B, Adol or Pedi Dosage 2003-06-04 00:00:[address] [facility] MMR 2003-06-04 00:00:[address] [facility] Polio (IPV/OPV) 2003-06-04 00:00:[address] [facility] Varicella (varivax)(chicken pox) 2003-06-04 00:00:[address] [facility] DTaP, Unspecified Formulation 2003-06-04 00:00:[address] [facility] HIB 4 Dose Schedule 2003-06-04 00:00:[address] [facility] IPV 2003-06-04 00:00:[address] [facility] DTAP 2003-06-04 00:00:[address] [facility] HIB 3 Dose Schedule 2003-06-04 00:00:[address] [facility] Hep B, Adol or Pedi Dosage 2003-06-04 00:00:[address] [facility] MMR 2003-06-04 00:00:[address] [facility] Polio (IPV/OPV) 2003-06-04 00:00:[address] [facility] Varicella (varivax)(chicken pox) 2003-06-04 00:00:[address] [facility] DTaP, Unspecified Formulation 2003-06-04 00:00:[address] [facility] HIB 4 Dose Schedule 2003-06-04 00:00:[address] [facility] IPV 2003-06-04 00:00:[address] [facility] DTAP 2003-06-04 00:00:[address] [facility] HIB 3 Dose Schedule 2003-06-04 00:00:[address] [facility] Hep B, Adol or Pedi Dosage 2003-06-04 00:00:[address] [facility] MMR 2003-06-04 00:00:[address] [facility] Polio (IPV/OPV) 2003-06-04 00:00:[address] [facility] Varicella (varivax)(chicken pox) 2003-06-04 00:00:[address] [facility] DTaP, Unspecified Formulation 2003-06-04 00:00:[address] [facility] HIB 4 Dose Schedule 2003-06-04 00:00:[address] [facility] IPV 2003-06-04 00:00:[address] [facility] DTAP 2003-06-04 00:00:[address] [facility] HIB 3 Dose Schedule 2003-06-04 00:00:[address] [facility] Hep B, Adol or Pedi Dosage 2003-06-04 00:00:[address] [facility] MMR 2003-06-04 00:00:[address] [facility] Polio (IPV/OPV) 2003-06-04 00:00:[address] [facility] Varicella (varivax)(chicken pox) 2003-06-04 00:00:[address] [facility] DTaP, Unspecified Formulation 2003-06-04 00:00:[address] [facility] HIB 4 Dose Schedule 2003-06-04 00:00:[address] [facility] IPV 2003-06-04 00:00:[address] [facility] DTAP 2003-06-04 00:00:[address] [facility] HIB 3 Dose Schedule 2003-06-04 00:00:[address] [facility] Hep B, Adol or Pedi Dosage 2003-06-04 00:00:[address] [facility] MMR 2003-06-04 00:00:[address] [facility] Polio (IPV/OPV) 2003-06-04 00:00:[address] [facility] Varicella (varivax)(chicken pox) 2003-06-04 00:00:[address] [facility] DTaP, Unspecified Formulation 2003-06-04 00:00:[address] [facility] HIB 4 Dose Schedule 2003-06-04 00:00:[address] [facility] IPV 2003-06-04 00:00:[address] [facility] DTAP 2003-06-04 00:00:[address] [facility] HIB 3 Dose Schedule 2003-06-04 00:00:[address] [facility] Hep B, Adol or Pedi Dosage 2003-06-04 00:00:[address] [facility] MMR 2003-06-04 00:00:[address] [facility] Polio (IPV/OPV) 2003-06-04 00:00:[address] [facility] Varicella (varivax)(chicken pox) 2003-06-04 00:00:[address] [facility] DTaP, Unspecified Formulation 2003-06-04 00:00:[address] [facility] HIB 4 Dose Schedule 2003-06-04 00:00:[address] [facility] IPV 2003-06-04 00:00:[address] [facility] DTAP 2003-06-04 00:00:[address] [facility] HIB 3 Dose Schedule 2003-06-04 00:00:[address] [facility] Hep B, Adol or Pedi Dosage 2003-06-04 00:00:[address] [facility] MMR 2003-06-04 00:00:[address] [facility] Polio (IPV/OPV) 2003-06-04 00:00:[address] [facility] Varicella (varivax)(chicken pox) 2003-06-04 00:00:[address] [facility] DTaP, Unspecified Formulation 2003-06-04 00:00:[address] [facility] HIB 4 Dose Schedule 2003-06-04 00:00:[address] [facility] IPV 2003-06-04 00:00:[address] [facility] DTAP 2003-06-04 00:00:[address] [facility] HIB 3 Dose Schedule 2003-06-04 00:00:[address] [facility] Hep B, Adol or Pedi Dosage 2003-06-04 00:00:[address] [facility] MMR 2003-06-04 00:00:[address] [facility] Polio (IPV/OPV) 2003-06-04 00:00:[address] [facility] Varicella (varivax)(chicken pox) 2003-06-04 00:00:[address] [facility] DTaP, Unspecified Formulation 2003-06-04 00:00:[address] [facility] HIB 4 Dose Schedule 2003-06-04 00:00:[address] [facility] IPV 2003-06-04 00:00:[address] [facility] DTAP 2003-06-04 00:00:[address] [facility] HIB 3 Dose Schedule 2003-06-04 00:00:[address] [facility] Hep B, Adol or Pedi Dosage 2003-06-04 00:00:[address] [facility] MMR 2003-06-04 00:00:[address] [facility] Polio (IPV/OPV) 2003-06-04 00:00:[address] [facility] Varicella (varivax)(chicken pox) 2003-06-04 00:00:[address] [facility] DTaP, Unspecified Formulation 2003-06-04 00:00:[address] [facility] HIB 4 Dose Schedule 2003-06-04 00:00:[address] [facility] IPV 2003-06-04 00:00:[address] [facility] DTAP 2003-06-04 00:00:[address] [facility] HIB 3 Dose Schedule 2003-06-04 00:00:[address] [facility] Hep B, Adol or Pedi Dosage 2003-06-04 00:00:[address] [facility] MMR 2003-06-04 00:00:[address] [facility] Polio (IPV/OPV) 2003-06-04 00:00:[address] [facility] Varicella (varivax)(chicken pox) 2003-06-04 00:00:[address] [facility] DTaP, Unspecified Formulation 2003-06-04 00:00:[address] [facility] HIB 4 Dose Schedule 2003-06-04 00:00:[address] [facility] IPV 2003-06-04 00:00:[address] [facility] DTAP 2003-06-04 00:00:[address] [facility] HIB 3 Dose Schedule 2003-06-04 00:00:[address] [facility] Hep B, Adol or Pedi Dosage 2003-06-04 00:00:[address] [facility] MMR 2003-06-04 00:00:[address] [facility] Polio (IPV/OPV) 2003-06-04 00:00:[address] [facility] Varicella (varivax)(chicken pox) 2003-06-04 00:00:[address] [facility] DTaP, Unspecified Formulation 2003-06-04 00:00:[address] [facility] HIB 4 Dose Schedule 2003-06-04 00:00:[address] [facility] IPV 2003-06-04 00:00:[address] [facility] DTAP 2003-06-04 00:00:[address] [facility] HIB 3 Dose Schedule 2003-06-04 00:00:[address] [facility] Hep B, Adol or Pedi Dosage 2003-06-04 00:00:[address] [facility] MMR 2003-06-04 00:00:[address] [facility] Polio (IPV/OPV) 2003-06-04 00:00:[address] [facility] Varicella (varivax)(chicken pox) 2003-06-04 00:00:[address] [facility] DTaP, Unspecified Formulation 2003-06-04 00:00:[address] [facility] HIB 4 Dose Schedule 2003-06-04 00:00:[address] [facility] IPV 2003-06-04 00:00:[address] [facility] DTAP 2003-06-04 00:00:[address] [facility] HIB 3 Dose Schedule 2003-06-04 00:00:00 Completed Hep B, Adol or Pedi Dosage 2003-06-04 00:00:00 Completed MMR 2003-06-04 00:00:00 Completed Polio (IPV/OPV) 2003-06-04 00:00:00 Completed Varicella (varivax)(chicken pox) 2003-06-04 00:00:00 Completed DTaP, Unspecified Formulation 2003-06-04 00:00:00 Completed HIB 4 Dose Schedule 2003-06-04 00:00:00 Completed IPV 2003-06-04 00:00:00 Completed DTAP Unknown Completed [facility] HIB 3 Dose Schedule Unknown Completed [facility] Hepatitis A Adult Unknown Completed [facility] Hep B, Adol or Pedi Dosage Unknown Completed [facility] Meningococcal Vaccine Unknown Completed [facility] MMR Unknown Completed [facility] Pneumococcal 13 Conjugate, PCV13 (Prevnar 13) Unknown Completed [facility] Polio (IPV/OPV) Unknown Completed [facility] TDAP Unknown Completed [facility] Varicella (varivax)(chicken pox) Unknown Completed [facility] Meningococcal B, OMV Unknown Completed [facility] Influenza Virus Vaccine Quad .5 mL IM 6+ MO (FLUZONE/FLULAVAL/FL UARIX) Unknown Completed [facility] DTaP, Unspecified Formulation Unknown Completed [facility] HEPA,NOS Unknown Completed [facility] HEPATITIS A Unknown Completed [facility] HIB 4 Dose Schedule Unknown Completed [facility] Meningococcal Polysaccharide (groups A, C, Y and W-135) conjugate vaccine (MCV4P) Unknown Completed [facility] Pneumococcal 7 Conjugate, PCV7 (Prevnar7) Unknown Completed [facility] IPV Unknown Completed [facility] DTAP Unknown Completed [facility] HIB 3 Dose Schedule Unknown Completed [facility] Hepatitis A Adult Unknown [facility], Ad[facility] or Pedi Dosage Unknown Completed [facility] Meningococcal Vaccine Unknown Completed [facility] MMR Unknown Completed [facility] Pneumococcal 13 Conjugate, PCV13 (Prevnar 13) Unknown Completed [facility] Polio (IPV/OPV) Unknown Completed [facility] TDAP Unknown Completed [facility] Varicella (varivax)(chicken pox) Unknown Completed [facility] Meningococcal B, OMV Unknown Completed [facility] Influenza Virus Vaccine Quad .5 mL IM 6+ MO (FLUZONE/FLULAVAL/FL UARIX) Unknown Completed [facility] DTaP, Unspecified Formulation Unknown Completed [facility] HEPA,NOS Unknown Completed [facility] HEPATITIS A Unknown Completed [facility] HIB 4 Dose Schedule Unknown Completed [facility] Meningococcal Polysaccharide (groups A, C, Y and W-135) conjugate vaccine (MCV4P) Unknown Completed [facility] Pneumococcal 7 Conjugate, PCV7 (Prevnar7) Unknown Completed [facility] IPV Unknown Completed [facility] DTAP Unknown Completed [facility] HIB 3 Dose Schedule Unknown Completed [facility] Hepatitis A Adult Unknown [facility], Adol or Pedi Dosage Unknown Completed [facility] Meningococcal Vaccine Unknown Completed [facility] MMR Unknown Completed [facility] Pneumococcal 13 Conjugate, PCV13 (Prevnar 13) Unknown Completed [facility] Polio (IPV/OPV) Unknown Completed [facility] TDAP Unknown Completed [facility] Varicella (varivax)(chicken pox) Unknown Completed [facility] Meningococcal B, OMV Unknown Completed [facility] Influenza Virus Vaccine Quad .5 mL IM 6+ MO (FLUZONE/FLULAVAL/FL UARIX) Unknown Completed [facility] DTaP, Unspecified Formulation Unknown Completed [facility] HEPA,NOS Unknown Completed [facility] HEPATITIS A Unknown Completed [facility] HIB 4 Dose Schedule Unknown Completed [facility] Meningococcal Polysaccharide (groups A, C, Y and W-135) conjugate vaccine (MCV4P) Unknown Completed [facility] Pneumococcal 7 Conjugate, PCV7 (Prevnar7) Unknown Completed [facility] IPV Unknown Completed [facility] DTAP Unknown Completed [facility] HIB 3 Dose Schedule Unknown Completed [facility] Hepatitis A Adult Unknown [facility] B, Adol or Pedi Dosage Unknown Completed [facility] Meningococcal Vaccine Unknown Completed [facility] MMR Unknown Completed [facility] Pneumococcal 13 Conjugate, PCV13 (Prevnar 13) Unknown Completed [facility] Polio (IPV/OPV) Unknown Completed [facility] TDAP Unknown Completed [facility] Varicella (varivax)(chicken pox) Unknown Completed [facility] Meningococcal B, OMV Unknown Completed [facility] Influenza Virus Vaccine Quad .5 mL IM 6+ MO (FLUZONE/FLULAVAL/FL UARIX) Unknown Completed [facility] DTaP, Unspecified Formulation Unknown Completed [facility] HEPA,NOS Unknown Completed [facility] HEPATITIS A Unknown Completed [facility] HIB 4 Dose Schedule Unknown Completed [facility] Meningococcal Polysaccharide (groups A, C, Y and W-135) conjugate vaccine (MCV4P) Unknown Completed [facility] Pneumococcal 7 Conjugate, PCV7 (Prevnar7) Unknown Completed [facility] IPV Unknown Completed [facility] DTAP Unknown Completed [facility] HIB 3 Dose Schedule Unknown Completed [facility] Hepatitis A Adult Unknown [facility] B, Adol or Pedi Dosage Unknown Completed [facility] Meningococcal Vaccine Unknown Completed [facility] MMR Unknown Completed [facility] Pneumococcal 13 Conjugate, PCV13 (Prevnar 13) Unknown Completed [facility] Polio (IPV/OPV) Unknown Completed [facility] TDAP Unknown Completed [facility] Varicella (varivax)(chicken pox) Unknown Completed [facility] Meningococcal B, OMV Unknown Completed [facility] Influenza Virus Vaccine Quad .5 mL IM 6+ MO (FLUZONE/FLULAVAL/FL UARIX) Unknown Completed [facility] DTaP, Unspecified Formulation Unknown Completed [facility] HEPA,NOS Unknown Completed [facility] HEPATITIS A Unknown Completed [facility] HIB 4 Dose Schedule Unknown Completed [facility] Meningococcal Polysaccharide (groups A, C, Y and W-135) conjugate vaccine (MCV4P) Unknown Completed [facility] Pneumococcal 7 Conjugate, PCV7 (Prevnar7) Unknown Completed [facility] IPV Unknown Completed [facility] DTAP Unknown Completed [facility] HIB 3 Dose Schedule Unknown Completed [facility] Hepatitis A Adult Unknown [facility], Ad[facility] or Pedi Dosage Unknown Completed [facility] Meningococcal Vaccine Unknown Completed [facility] MMR Unknown Completed [facility] Pneumococcal 13 Conjugate, PCV13 (Prevnar 13) Unknown Completed [facility] Polio (IPV/OPV) Unknown Completed [facility] TDAP Unknown Completed [facility] Varicella (varivax)(chicken pox) Unknown Completed [facility] Meningococcal B, OMV Unknown Completed [facility] Influenza Virus Vaccine Quad .5 mL IM 6+ MO (FLUZONE/FLULAVAL/FL UARIX) Unknown Completed [facility] DTaP, Unspecified Formulation Unknown Completed [facility] HEPA,NOS Unknown Completed [facility] HEPATITIS A Unknown Completed [facility] HIB 4 Dose Schedule Unknown Completed [facility] Meningococcal Polysaccharide (groups A, C, Y and W-135) conjugate vaccine (MCV4P) Unknown Completed [facility] Pneumococcal 7 Conjugate, PCV7 (Prevnar7) Unknown Completed [facility] IPV Unknown Completed [facility] Meningococcal Vaccine Unknown Completed [facility] Pneumococcal 13 Conjugate, PCV13 (Prevnar 13) Unknown Completed [facility] Meningococcal B, OMV Unknown Completed [facility] Influenza Virus Vaccine Quad .5 mL IM 6+ MO (FLUZONE/FLULAVAL/FL UARIX) Unknown Completed [facility] HEPA,NOS Unknown Completed [facility] HEPATITIS A Unknown Completed [facility] Meningococcal Polysaccharide (groups A, C, Y and W-135) conjugate vaccine (MCV4P) Unknown Completed [facility] Pneumococcal 7 Conjugate, PCV7 (Prevnar7) Unknown Completed [facility] DTAP Unknown Completed [facility] HIB 3 Dose Schedule Unknown Completed [facility] Hepatitis A Adult Unknown Completed [facility] Hep B, Adol or Pedi Dosage Unknown Completed [facility] MMR Unknown Completed [facility] Polio (IPV/OPV) Unknown Completed [facility] TDAP Unknown Completed [facility] Varicella (varivax)(chicken pox) Unknown Completed [facility] DTaP, Unspecified Formulation Unknown Completed [facility] HIB 4 Dose Schedule Unknown Com[facility] [facility] IPV Unknown Completed [facility] Meningococcal Vaccine Unknown Completed [facility] Pneumococcal 13 Conjugate, PCV13 (Prevnar 13) Unknown Completed [facility] Meningococcal B, OMV Unknown Completed [facility] Influenza Virus Vaccine Quad .5 mL IM 6+ MO (FLUZONE/FLULAVAL/FL UARIX) Unknown Completed [facility] HEPA,NOS Unknown Completed [facility] HEPATITIS A Unknown Completed [facility] Meningococcal Polysaccharide (groups A, C, Y and W-135) conjugate vaccine (MCV4P) Unknown Completed [facility] Pneumococcal 7 Conjugate, PCV7 (Prevnar7) Unknown Completed [facility] DTAP Unknown Completed [facility] HIB 3 Dose Schedule Unknown Completed [facility] Hepatitis A Adult Unknown [facility], Adol or Pedi Dosage Unknown Completed [facility] MMR Unknown Completed [facility] Polio (IPV/OPV) Unknown Completed [facility] TDAP Unknown Completed [facility] Varicella (varivax)(chicken pox) Unknown Completed [facility] DTaP, Unspecified Formulation Unknown Completed [facility] HIB 4 Dose Schedule Unknown Completed [facility] IPV Unknown Completed [facility] DTAP Unknown Completed [facility] HIB 3 Dose Schedule Unknown Completed [facility] Hepatitis A Adult Unknown [facility] B, Adol or Pedi Dosage Unknown Completed [facility] Meningococcal Vaccine Unknown Completed [facility] MMR Unknown Completed [facility] Pneumococcal 13 Conjugate, PCV13 (Prevnar 13) Unknown Completed [facility] Polio (IPV/OPV) Unknown Completed [facility] TDAP Unknown Completed [facility] Varicella (varivax)(chicken pox) Unknown Completed [facility] Meningococcal B, OMV Unknown Completed [facility] Influenza Virus Vaccine Quad .5 mL IM 6+ MO (FLUZONE/FLULAVAL/FL UARIX) Unknown Completed [facility] DTaP, Unspecified Formulation Unknown Completed [facility] HEPA,NOS Unknown Completed [facility] HEPATITIS A Unknown Completed [facility] HIB 4 Dose Schedule Unknown Completed [facility] Meningococcal Polysaccharide (groups A, C, Y and W-135) conjugate vaccine (MCV4P) Unknown Completed [facility] Pneumococcal 7 Conjugate, PCV7 (Prevnar7) Unknown Completed [facility] IPV Unknown Completed [facility] DTAP Unknown Completed [facility] HIB 3 Dose Schedule Unknown Completed [facility] Hepatitis A Adult [facility], Adol or Pedi Dosage Unknown Completed [facility] Meningococcal Vaccine Unknown Completed [facility] MMR Unknown Completed [facility] Pneumococcal 13 Conjugate, PCV13 (Prevnar 13) Unknown Completed [facility] Polio (IPV/OPV) Unknown Completed [facility] TDAP Unknown Completed [facility] Varicella (varivax)(chicken pox) Unknown Completed [facility] Meningococcal B, OMV Unknown Completed [facility] Influenza Virus Vaccine Quad .5 mL IM 6+ MO (FLUZONE/FLULAVAL/FL UARIX) Unknown Completed [facility] DTaP, Unspecified Formulation Unknown Completed [facility] HEPA,NOS Unknown Completed [facility] HEPATITIS A Unknown Completed [facility] HIB 4 Dose Schedule Unknown Completed [facility] Meningococcal Polysaccharide (groups A, C, Y and W-135) conjugate vaccine (MCV4P) Unknown Completed [facility] Pneumococcal 7 Conjugate, PCV7 (Prevnar7) Unknown Completed [facility] IPV Unknown Completed [facility] DTAP Unknown Completed [facility] HIB 3 Dose Schedule Unknown Completed [facility] Hepatitis A Adult Unknown [facility], Adol or Pedi Dosage Unknown Completed [facility] Meningococcal Vaccine Unknown Completed [facility] MMR Unknown Completed [facility] Pneumococcal 13 Conjugate, PCV13 (Prevnar 13) Unknown Completed [facility] Polio (IPV/OPV) Unknown Completed [facility] TDAP Unknown Completed [facility] Varicella (varivax)(chicken pox) Unknown Completed [facility] Meningococcal B, OMV Unknown Completed [facility] Influenza Virus Vaccine Quad .5 mL IM 6+ MO (FLUZONE/FLULAVAL/FL UARIX) Unknown Completed [facility] DTaP, Unspecified Formulation Unknown Completed [facility] HEPA,NOS Unknown Completed [facility] HEPATITIS A Unknown Completed [facility] HIB 4 Dose Schedule Unknown Completed [facility] Meningococcal Polysaccharide (groups A, C, Y and W-135) conjugate vaccine (MCV4P) Unknown Completed [facility] Pneumococcal 7 Conjugate, PCV7 (Prevnar7) Unknown Completed [facility] IPV Unknown Completed [facility] DTAP Unknown Completed [facility] HIB 3 Dose Schedule Unknown Completed [facility] Hepatitis A Adult Unknown [facility] B, Adol or Pedi Dosage Unknown Completed [facility] Meningococcal Vaccine Unknown Completed [facility] MMR Unknown Completed [facility] Pneumococcal 13 Conjugate, PCV13 (Prevnar 13) Unknown Completed [facility] Polio (IPV/OPV) Unknown Completed [facility] TDAP Unknown Completed [facility] Varicella (varivax)(chicken pox) Unknown Completed [facility] Meningococcal B, OMV Unknown Completed [facility] Influenza Virus Vaccine Quad .5 mL IM 6+ MO (FLUZONE/FLULAVAL/FL UARIX) Unknown Completed [facility] DTaP, Unspecified Formulation Unknown Completed [facility] HEPA,NOS Unknown Completed [facility] HEPATITIS A Unknown Completed [facility] HIB 4 Dose Schedule Unknown Completed [facility] Meningococcal Polysaccharide (groups A, C, Y and W-135) conjugate vaccine (MCV4P) Unknown Completed [facility] Pneumococcal 7 Conjugate, PCV7 (Prevnar7) Unknown Completed [facility] IPV Unknown Completed [facility] DTAP Unknown Completed [facility] HIB 3 Dose Schedule Unknown Completed [facility] Hepatitis A Adult Unknown [facility], Adol or Pedi Dosage Unknown Completed [facility] Meningococcal Vaccine Unknown Completed [facility] MMR Unknown Completed [facility] Pneumococcal 13 Conjugate, PCV13 (Prevnar 13) Unknown Completed [facility] Polio (IPV/OPV) Unknown Completed [facility] TDAP Unknown Completed [facility] Varicella (varivax)(chicken pox) Unknown Completed [facility] Meningococcal B, OMV Unknown Completed [facility] Influenza Virus Vaccine Quad .5 mL IM 6+ MO (FLUZONE/FLULAVAL/FL UARIX) Unknown Completed [facility] DTaP, Unspecified Formulation Unknown Completed [facility] HEPA,NOS Unknown Completed [facility] HEPATITIS A Unknown Completed [facility] HIB 4 Dose Schedule Unknown Completed [facility] Meningococcal Polysaccharide (groups A, C, Y and W-135) conjugate vaccine (MCV4P) Unknown Completed [facility] Pneumococcal 7 Conjugate, PCV7 (Prevnar7) Unknown Completed [facility] IPV Unknown Completed [facility] DTAP Unknown Completed [facility] HIB 3 Dose Schedule Unknown Completed [facility] Hepatitis A Adult Unknown [facility] B, Adol or Pedi Dosage Unknown Completed [facility] Meningococcal Vaccine Unknown Completed [facility] MMR Unknown Completed [facility] Pneumococcal 13 Conjugate, PCV13 (Prevnar 13) Unknown Completed [facility] Polio (IPV/OPV) Unknown Completed [facility] TDAP Unknown Completed [facility] Varicella (varivax)(chicken pox) Unknown Completed [facility] Meningococcal B, OMV Unknown Completed [facility] Influenza Virus Vaccine Quad .5 mL IM 6+ MO (FLUZONE/FLULAVAL/FL UARIX) Unknown Completed [facility] DTaP, Unspecified Formulation Unknown Completed [facility] HEPA,NOS Unknown Completed [facility] HEPATITIS A Unknown Completed [facility] HIB 4 Dose Schedule Unknown Completed [facility] Meningococcal Polysaccharide (groups A, C, Y and W-135) conjugate vaccine (MCV4P) Unknown Completed [facility] Pneumococcal 7 Conjugate, PCV7 (Prevnar7) Unknown Completed [facility] IPV Unknown Completed [facility] DTAP Unknown Completed [facility] HIB 3 Dose Schedule Unknown Completed [facility] Hepatitis A Adult Unknown [facility], Adol or Pedi Dosage Unknown Completed [facility] Meningococcal Vaccine Unknown Completed [facility] MMR Unknown Completed [facility] Pneumococcal 13 Conjugate, PCV13 (Prevnar 13) Unknown Completed [facility] Polio (IPV/OPV) Unknown Completed [facility] TDAP Unknown Completed [facility] Varicella (varivax)(chicken pox) Unknown Completed [facility] Meningococcal B, OMV Unknown Completed [facility] Influenza Virus Vaccine Quad .5 mL IM 6+ MO (FLUZONE/FLULAVAL/FL UARIX) Unknown Completed [facility] DTaP, Unspecified Formulation Unknown Completed [facility] HEPA,NOS Unknown Completed [facility] HEPATITIS A Unknown Completed [facility] HIB 4 Dose Schedule Unknown Completed [facility] Meningococcal Polysaccharide (groups A, C, Y and W-135) conjugate vaccine (MCV4P) Unknown Completed [facility] Pneumococcal 7 Conjugate, PCV7 (Prevnar7) Unknown Completed [facility] IPV Unknown Completed [facility] DTAP Unknown Completed [facility] HIB 3 Dose Schedule Unknown Completed [facility] Hepatitis A Adult Unknown [facility], Adol or Pedi Dosage Unknown Completed [facility] Meningococcal Vaccine Unknown Completed [facility] MMR Unknown Completed [facility] Pneumococcal 13 Conjugate, PCV13 (Prevnar 13) Unknown Completed [facility] Polio (IPV/OPV) Unknown Completed [facility] TDAP Unknown Completed [facility] Varicella (varivax)(chicken pox) Unknown Completed [facility] Meningococcal B, OMV Unknown Completed [facility] Influenza Virus Vaccine Quad .5 mL IM 6+ MO (FLUZONE/FLULAVAL/FL UARIX) Unknown Completed [facility] DTaP, Unspecified Formulation Unknown Completed [facility] HEPA,NOS Unknown Completed [facility] HEPATITIS A Unknown Completed [facility] HIB 4 Dose Schedule Unknown Completed [facility] Meningococcal Polysaccharide (groups A, C, Y and W-135) conjugate vaccine (MCV4P) Unknown Completed [facility] Pneumococcal 7 Conjugate, PCV7 (Prevnar7) Unknown Completed [facility] IPV Unknown Completed [facility] DTAP Unknown Completed [facility] HIB 3 Dose Schedule Unknown Completed [facility] Hepatitis A Adult Unknown [facility] B, Adol or Pedi Dosage Unknown Completed [facility] Meningococcal Vaccine Unknown Completed [facility] MMR Unknown Completed [facility] Pneumococcal 13 Conjugate, PCV13 (Prevnar 13) Unknown Completed [facility] Polio (IPV/OPV) Unknown Completed [facility] TDAP Unknown Completed [facility] Varicella (varivax)(chicken pox) Unknown Completed [facility] Meningococcal B, OMV Unknown Completed [facility] Influenza Virus Vaccine Quad .5 mL IM 6+ MO (FLUZONE/FLULAVAL/FL UARIX) Unknown Completed [facility] DTaP, Unspecified Formulation Unknown Completed [facility] HEPA,NOS Unknown Completed [facility] HEPATITIS A Unknown Completed [facility] HIB 4 Dose Schedule Unknown Completed [facility] Meningococcal Polysaccharide (groups A, C, Y and W-135) conjugate vaccine (MCV4P) Unknown Completed [facility] Pneumococcal 7 Conjugate, PCV7 (Prevnar7) Unknown Completed [facility] IPV Unknown Completed [facility] DTAP Unknown Completed [facility] HIB 3 Dose Schedule Unknown Completed [facility] Hepatitis A Adult Unknown [facility] B, Adol or Pedi Dosage Unknown Completed [facility] Meningococcal Vaccine Unknown Completed [facility] MMR Unknown Completed [facility] Pneumococcal 13 Conjugate, PCV13 (Prevnar 13) Unknown Completed [facility] Polio (IPV/OPV) Unknown Completed [facility] TDAP Unknown Completed [facility] Varicella (varivax)(chicken pox) Unknown Completed [facility] Meningococcal B, OMV Unknown Completed [facility] Influenza Virus Vaccine Quad .5 mL IM 6+ MO (FLUZONE/FLULAVAL/FL UARIX) Unknown Completed [facility] DTaP, Unspecified Formulation Unknown Completed [facility] HEPA,NOS Unknown Completed [facility] HEPATITIS A Unknown Completed [facility] HIB 4 Dose Schedule Unknown Completed [facility] Meningococcal Polysaccharide (groups A, C, Y and W-135) conjugate vaccine (MCV4P) Unknown Completed [facility] Pneumococcal 7 Conjugate, PCV7 (Prevnar7) Unknown Completed [facility] IPV Unknown Completed [facility] DTAP Unknown Completed [facility] HIB 3 Dose Schedule Unknown Completed [facility] Hepatitis A Adult Unknown [facility] B, Adol or Pedi Dosage Unknown Completed [facility] Meningococcal Vaccine Unknown Completed [facility] MMR Unknown Completed [facility] Pneumococcal 13 Conjugate, PCV13 (Prevnar 13) Unknown Completed [facility] Polio (IPV/OPV) Unknown Completed [facility] TDAP Unknown Completed [facility] Varicella (varivax)(chicken pox) Unknown Completed [facility] Meningococcal B, OMV Unknown Completed [facility] Influenza Virus Vaccine Quad .5 mL IM 6+ MO (FLUZONE/FLULAVAL/FL UARIX) Unknown Completed [facility] DTaP, Unspecified Formulation Unknown Completed [facility] HEPA,NOS Unknown Completed [facility] HEPATITIS A Unknown Completed [facility] HIB 4 Dose Schedule Unknown Completed [facility] Meningococcal Polysaccharide (groups A, C, Y and W-135) conjugate vaccine (MCV4P) Unknown Completed [facility] Pneumococcal 7 Conjugate, PCV7 (Prevnar7) Unknown Completed [facility] IPV Unknown Completed [facility] Vital Signs Vital Name Observation Time Observation Value Comments S ource Systolic blood pressure 2024-04-15 14:15:00 127 mm[Hg] [facility] Diastolic blood pressure 2024-04-15 14:15:00 92 mm[Hg] [facility] Heart rate 2024-04-15 14:03:00 79 /min [facility] Body temperature 2024-04-15 14:03:[address] [facility] Respiratory rate 2024-04-15 14:03:00 17 /min [facility] Body height 2024-04-15 14:03:00 167.6 cm [facility] Body weight 2024-04-15 14:03:00 89.268 kg [facility] BMI 2024-04-15 14:03:00 31.76 kg/m2 [facility] Systolic blood pressure 2024-02-12 16:51:00 122 mm[Hg] [facility] Diastolic blood pressure 2024-02-12 16:51:00 83 mm[Hg] [facility] Heart rate 2024-02-12 16:51:00 82 /min [facility] Body temperature 2024-02-12 16:51:[address] [facility] Body height 2024-02-12 16:51:00 167.6 cm [facility] Body weight 2024-02-12 16:51:00 88.361 kg [facility] BMI 2024-02-12 16:51:00 31.44 kg/m2 [facility] Systolic blood pressure 2024-01-17 19:11:00 123 mm[Hg] [facility] Diastolic blood pressure 2024-01-17 19:11:00 85 mm[Hg] [facility] Heart rate 2024-01-17 19:11:00 73 /min [facility] Respiratory rate 2024-01-17 19:11:00 17 /min [facility] Body height 2024-01-17 19:11:00 170.2 cm [facility] Body weight 2024-01-17 19:11:00 88.026 kg [facility] BMI 2024-01-17 19:11:00 30.39 kg/m2 [facility] Oxygen saturation in Arterial blood by Pulse oximetry 2024-01-17 19:11:00 98 /min [facility] Systolic blood pressure 2024-01-15 14:02:00 138 mm[Hg] [facility] Diastolic blood pressure 2024-01-15 14:02:00 86 mm[Hg] [facility] Heart rate 2024-01-15 13:56:00 84 /min [facility] Body temperature 2024-01-15 13:56:[address] [facility] Respiratory rate 2024-01-15 13:56:00 17 /min [facility] Body height 2024-01-15 13:56:00 170.2 cm [facility] Body weight 2024-01-15 13:56:00 87.68 kg [facility] BMI 2024-01-15 13:56:00 30.28 kg/m2 [facility] Systolic blood pressure 2023-12-11 14:15:00 133 mm[Hg] [facility] Diastolic blood pressure 2023-12-11 14:15:00 85 mm[Hg] [facility] Heart rate 2023-12-11 14:15:00 81 /min [facility] Body temperature 2023-12-11 14:15:[address] [facility] Respiratory rate 2023-12-11 14:15:00 18 /min [facility] Body height 2023-12-11 14:15:00 170.2 cm [facility] Body weight 2023-12-11 14:15:00 87.091 kg [facility] BMI 2023-12-11 14:15:00 30.07 kg/m2 [facility] Systolic blood pressure 2023-11-02 13:15:00 111 mm[Hg] [facility] Diastolic blood pressure 2023-11-02 13:15:00 72 mm[Hg] [facility] Heart rate 2023-11-02 13:15:00 78 [facility] Body temperature 2023-11-02 13:15:[address] [facility] Body height 2023-11-02 13:15:00 170.2 cm [facility] Body weight 2023-11-02 13:15:00 84.823 kg [facility] BMI 2023-11-02 13:15:00 29.29 kg/m2 [facility] Oxygen saturation in Arterial blood by Pulse oximetry 2023-11-02 13:15:00 100 /min [facility] Systolic blood pressure 2023-09-21 14:11:00 131 mm[Hg] [facility] Diastolic blood pressure 2023-09-21 14:11:00 84 mm[Hg] [facility] Heart rate 2023-09-21 14:11:00 98 /min [facility] [facility] Body temperature 2023-09-21 14:11:[address] [facility] Respiratory rate 2023-09-21 14:11:00 18 /min [facility] Body height 2023-09-21 14:11:00 170.2 cm [facility] Body weight 2023-09-21 14:11:00 89.994 kg [facility] BMI 2023-09-21 14:11:00 31.07 kg/m2 [facility] Systolic blood pressure 2023-09-17 09:00:00 131 mm[Hg] [facility] Diastolic blood pressure 2023-09-17 09:00:00 82 mm[Hg] [facility] Heart rate 2023-09-17 09:00:00 91 /min [facility] Body temperature 2023-09-17 09:00:[address] [facility] Respiratory rate 2023-09-17 09:00:00 16 /min [facility] Oxygen saturation in Arterial blood by Pulse oximetry 2023-09-17 09:00:00 100 /min [facility] Body height 2023-09-17 07:15:00 170.2 cm [facility] Body weight 2023-09-17 07:15:00 86.183 kg [facility] BMI 2023-09-17 07:15:00 29.76 kg/m2 [facility] Heart rate 2023-08-27 03:19:00 70 /min [facility] Body temperature 2023-08-27 03:19:[address] [facility] Respiratory rate 2023-08-27 03:19:00 16 /min [facility] Oxygen saturation in Arterial blood by Pulse oximetry 2023-08-27 03:19:00 98 /min [facility] Systolic blood pressure 2023-08-27 03:00:00 120 mm[Hg] [facility] Diastolic blood pressure 2023-08-27 03:00:00 76 mm[Hg] [facility] Body height 2023-08-27 01:44:00 170.2 cm [facility] Body weight 2023-08-27 01:44:00 86.183 kg [facility] BMI 2023-08-27 01:44:00 29.76 kg/m2 [facility] Systolic blood pressure 2023-08-24 12:23:00 128 mm[Hg] [facility] Diastolic blood pressure 2023-08-24 12:23:00 88 mm[Hg] [facility] Heart rate 2023-08-24 12:23:00 81 /min [facility] Body temperature 2023-08-24 12:23:[address] [facility] Respiratory rate 2023-08-24 12:23:00 18 /min [facility] Body height 2023-08-24 12:23:00 167.6 cm [facility] Body weight 2023-08-24 12:23:00 86.456 kg [facility] BMI 2023-08-24 12:23:00 30.76 kg/m2 [facility] Systolic blood pressure 2023-08-10 18:38:00 137 mm[Hg] [facility] Diastolic blood pressure 2023-08-10 18:38:00 86 mm[Hg] [facility] Heart rate 2023-08-10 18:38:00 93 /min [facility] Body temperature 2023-08-10 18:38:[address] [facility] Respiratory rate 2023-08-10 18:38:00 18 /min [facility] Body height 2023-08-10 18:38:00 167.6 cm [facility] Body weight 2023-08-10 18:38:00 85.73 kg [facility] BMI 2023-08-10 18:38:00 30.51 kg/m2 [facility] Systolic blood pressure 2023-02-08 22:19:00 135 mm[Hg] [facility] Diastolic blood pressure 2023-02-08 22:19:00 85 mm[Hg] [facility] Heart rate 2023-02-08 22:14:00 91 /min [facility] Body temperature 2023-02-08 22:14:[address] [facility] Respiratory rate 2023-02-08 22:14:00 18 /min [facility] Body height 2023-02-08 22:14:00 167.6 cm [facility] Body weight 2023-02-08 22:14:00 78.382 kg [facility] BMI 2023-02-08 22:14:00 27.89 kg/m2 [facility] Systolic blood pressure 2022-08-12 15:38:00 123 mm[Hg] [facility] Diastolic blood pressure 2022-08-12 15:38:00 81 mm[Hg] [facility] Heart rate 2022-08-12 15:38:00 92 /min [facility] Body temperature 2022-08-12 15:38:[address] [facility] Respiratory rate 2022-08-12 15:38:00 18 /min [facility] Body height 2022-08-12 15:38:00 167.6 cm [facility] Body weight 2022-08-12 15:38:00 80.377 kg [facility] BMI 2022-08-12 15:38:00 28.60 kg/m2 [facility] Systolic blood pressure 2022-08-01 15:20:00 134 mm[Hg] [facility] Diastolic blood pressure 2022-08-01 15:20:00 90 mm[Hg] [facility] Heart rate 2022-08-01 14:55:00 91 /min [facility] Body temperature 2022-08-01 14:55:[address] [facility] Respiratory rate 2022-08-01 14:55:00 17 /min [facility] Body height 2022-08-01 14:55:00 167.6 cm [facility] Body weight 2022-08-01 14:55:00 81.874 kg [facility] BMI 2022-08-01 14:55:00 29.13 kg/m2 [facility] Systolic blood pressure 2022-07-29 16:00:00 131 mm[Hg] [facility] Diastolic blood pressure 2022-07-29 16:00:00 77 mm[Hg] [facility] Respiratory rate 2022-07-29 15:56:00 18 /min [facility] Heart rate 2022-07-29 12:15:00 112 /min [facility] Oxygen saturation in Arterial blood by Pulse oximetry 2022-07-29 12:15:00 96 /min [facility] Body temperature 2022-07-29 10:00:00 36.89 [facility] Body height 2022-07-29 03:10:00 167.6 cm [facility] Body weight 2022-07-29 03:10:00 83.643 kg [facility] BMI 2022-07-29 03:10:00 29.76 kg/m2 [facility] Systolic blood pressure 2022-07-25 13:45:00 140 mm[Hg] [facility] Diastolic blood pressure 2022-07-25 13:45:00 97 mm[Hg] [facility] Heart rate 2022-07-25 12:15:00 92 /min [facility] Body temperature 2022-07-25 12:15:00 36.67 [facility] Respiratory rate 2022-07-25 12:15:00 18 /min [facility] Oxygen saturation in Arterial blood by Pulse oximetry 2022-07-25 12:15:00 100 /min [facility] Body height 2022-07-24 14:30:00 167.6 cm [facility] Systolic blood pressure 2022-07-23 18:30:00 130 mm[Hg] [facility] Diastolic blood pressure 2022-07-23 18:30:00 84 mm[Hg] [facility] Heart rate 2022-07-23 18:30:00 115 /min [facility] Body temperature 2022-07-23 18:30:00 36.94 [facility] Respiratory rate 2022-07-23 18:30:00 18 /min [facility] Oxygen saturation in Arterial blood by Pulse oximetry 2022-07-23 18:30:00 99 /min [facility] Body height 2022-07-21 15:36:00 167.6 cm [facility] Body weight 2022-07-21 15:36:00 89.359 kg [facility] BMI 2022-07-21 15:36:00 31.80 kg/m2 [facility] Systolic blood pressure 2022-07-21 18:00:00 131 mm[Hg] [facility] Diastolic blood pressure 2022-07-21 18:00:00 84 mm[Hg] [facility] Heart rate 2022-07-21 18:00:00 104 /min [facility] Body temperature 2022-07-21 18:00:[address] [facility] Respiratory rate 2022-07-21 18:00:00 18 /min [facility] Oxygen saturation in Arterial blood by Pulse oximetry 2022-07-21 18:00:00 100 /min [facility] Body height 2022-07-21 15:36:00 167.6 cm [facility] Body weight 2022-07-21 15:36:00 89.359 kg [facility] BMI 2022-07-21 15:36:00 31.80 kg/m2 [facility] Systolic blood pressure 2022-07-17 17:09:00 103 mm[Hg] [facility] Diastolic blood pressure 2022-07-17 17:09:00 51 mm[Hg] [facility] Heart rate 2022-07-17 17:09:00 82 /min [facility] Body temperature 2022-07-17 17:09:[address] [facility] Respiratory rate 2022-07-17 17:09:00 16 /min [facility] Oxygen saturation in Arterial blood by Pulse oximetry 2022-07-17 17:09:00 99 /min [facility] Body height 2022-07-17 15:58:00 167.6 cm 5' 6" [facility] Body weight 2022-07-17 15:58:00 87.816 kg 193.6lb [facility] BMI 2022-07-17 15:58:00 31.25 kg/m2 [facility] Systolic blood pressure 2022-07-11 06:00:00 121 mm[Hg] [facility] Diastolic blood pressure 2022-07-11 06:00:00 68 mm[Hg] [facility] Heart rate 2022-07-11 06:00:00 100 [facility]terial [facility] by Pulse oximetry 2022-07-11 06:00:00 99 /min [facility] Body temperature 2022-07-11 04:00:[address] [facility] Respiratory rate 2022-07-11 04:00:00 18 /min [facility] Body height 2022-07-11 04:00:00 167.6 cm [facility] Body weight 2022-07-11 04:00:00 89.313 kg [facility] BMI 2022-07-11 04:00:00 31.78 kg/m2 [facility] Systolic blood pressure 2022-07-08 19:21:00 133 mm[Hg] [facility] Diastolic blood pressure 2022-07-08 19:21:00 79 mm[Hg] [facility] Heart rate 2022-07-08 19:21:00 94 /min [facility] Body temperature 2022-07-08 19:21:[address] [facility] Respiratory rate 2022-07-08 19:21:00 18 /min [facility] Body height 2022-07-08 19:21:00 167.6 cm [facility] Body weight 2022-07-08 19:21:00 86.909 kg [facility] BMI 2022-07-08 19:21:00 30.93 kg/m2 [facility] Heart rate 2022-07-06 09:15:00 96 /min [facility] Oxygen saturation in Arterial blood by Pulse oximetry 2022-07-06 09:15:00 99 /min [facility] Systolic blood pressure 2022-07-06 05:20:00 121 mm[Hg] [facility] Diastolic blood pressure 2022-07-06 05:20:00 70 mm[Hg] [facility] Body temperature 2022-07-06 05:20:[address] [facility] Body height 2022-07-06 05:20:00 167.6 cm [facility] Body weight 2022-07-06 05:20:00 86.637 kg [facility] BMI 2022-07-06 05:20:00 30.83 kg/m2 [facility] Respiratory rate 2022-07-06 05:01:00 16 /min [facility] Systolic blood pressure 2022-06-23 19:46:00 135 mm[Hg] [facility] Diastolic blood pressure 2022-06-23 19:46:00 85 mm[Hg] [facility] Heart rate 2022-06-23 19:46:00 102 /min [facility] Body temperature 2022-06-23 19:46:[address] [facility] Respiratory rate 2022-06-23 19:46:00 18 /min [facility] Body height 2022-06-23 19:46:00 167.6 cm [facility] Body weight 2022-06-23 19:46:00 85.004 kg [facility] BMI 2022-06-23 19:46:00 30.25 kg/m2 [facility] Systolic blood pressure 2022-06-09 18:04:00 110 mm[Hg] [facility] Diastolic blood pressure 2022-06-09 18:04:00 60 mm[Hg] [facility] Heart rate 2022-06-09 17:59:00 112 /min [facility] Body temperature 2022-06-09 17:57:[address] [facility] Respiratory rate 2022-06-09 17:57:00 18 /min [facility] Body height 2022-06-09 17:57:00 170.2 cm [facility] Body weight 2022-06-09 17:57:00 85.911 kg [facility] BMI 2022-06-09 17:57:00 29.66 kg/m2 [facility] Body temperature 2022-06-02 15:34:[address] [facility] Body weight 2022-06-02 15:34:00 85.73 kg [facility] BMI 2022-06-02 15:34:00 30.51 kg/m2 [facility] Systolic blood pressure 2022-05-26 15:34:00 111 mm[Hg] [facility] Diastolic blood pressure 2022-05-26 15:34:00 71 mm[Hg] [facility] Heart rate 2022-05-26 15:34:00 87 /min [facility] Body temperature 2022-05-26 15:34:[address] [facility] Respiratory rate 2022-05-26 15:34:00 18 /min [facility] Body height 2022-05-26 15:34:00 167.6 cm [facility] Body weight 2022-05-26 15:34:00 85.73 kg [facility] BMI 2022-05-26 15:34:00 30.51 kg/m2 [facility] Body temperature 2022-05-19 15:46:[address] [facility] Body weight 2022-05-19 15:46:00 85.095 kg [facility] BMI 2022-05-19 15:46:00 30.28 kg/m2 [facility] Systolic blood pressure 2022-05-12 20:15:00 122 mm[Hg] [facility] Diastolic blood pressure 2022-05-12 20:15:00 67 mm[Hg] [facility] Heart rate 2022-05-12 20:15:00 85 /min [facility] Body temperature 2022-05-12 20:15:[address] [facility] Respiratory rate 2022-05-12 20:15:00 18 /min [facility] Body height 2022-05-12 20:15:00 167.6 cm [facility] Body weight 2022-05-12 20:15:00 83.961 kg [facility] BMI 2022-05-12 20:15:00 29.88 kg/m2 [facility] Body temperature 2022-05-05 16:37:[address] [facility] Body weight 2022-05-05 16:37:00 83.553 kg [facility] Systolic blood pressure 2022-04-28 17:19:00 128 mm[Hg] [facility] Diastolic blood pressure 2022-04-28 17:19:00 73 mm[Hg] [facility] Heart rate 2022-04-28 17:19:00 87 /min [facility] Body temperature 2022-04-28 17:19:[address] [facility] Respiratory rate 2022-04-28 17:19:00 18 /min [facility] Body weight 2022-04-28 17:19:00 82.736 kg [facility] Body temperature 2022-04-21 16:16:[address] [facility] Body weight 2022-04-21 16:16:00 81.421 kg [facility] BMI 2022-04-21 16:16:00 28.97 kg/m2 [facility] Systolic blood pressure 2022-04-14 16:55:00 119 mm[Hg] [facility] Diastolic blood pressure 2022-04-14 16:55:00 72 mm[Hg] [facility] Heart rate 2022-04-14 16:55:00 75 /min [facility] Body temperature 2022-04-14 16:55:[address] [facility] Respiratory rate 2022-04-14 16:55:00 16 /min [facility] Body height 2022-04-14 16:55:00 167.6 cm [facility] Body weight 2022-04-14 16:55:00 79.742 kg [facility] BMI 2022-04-14 16:55:00 28.37 kg/m2 [facility] Systolic blood pressure 2022-04-07 19:07:00 122 mm[Hg] [facility] Diastolic blood pressure 2022-04-07 19:07:00 76 mm[Hg] [facility] Heart rate 2022-04-07 19:07:00 95 /min [facility] Body temperature 2022-04-07 19:07:[address] [facility] Respiratory rate 2022-04-07 19:07:00 20 /min [facility] Body weight 2022-04-07 19:07:00 78.835 kg [facility] Systolic blood pressure 2022-03-31 15:59:00 118 mm[Hg] [facility] Diastolic blood pressure 2022-03-31 15:59:00 76 mm[Hg] [facility] Heart rate 2022-03-31 15:59:00 82 /min [facility] Body temperature 2022-03-31 15:59:[address] [facility] Respiratory rate 2022-03-31 15:59:00 18 /min [facility] Body height 2022-03-31 15:59:00 167.6 cm [facility] Body weight 2022-03-31 15:59:00 76.885 kg [facility] BMI 2022-03-31 15:59:00 27.36 kg/m2 [facility] Body temperature 2022-03-24 15:55:[address] [facility] Respiratory rate 2022-03-24 15:55:00 18 /min [facility] Body weight 2022-03-24 15:55:00 75.796 kg [facility] Systolic blood pressure 2022-03-10 17:15:00 116 mm[Hg] [facility] Diastolic blood pressure 2022-03-10 17:15:00 74 mm[Hg] [facility] Heart rate 2022-03-10 17:15:00 77 /min [facility] Body temperature 2022-03-10 17:15:[address] [facility] Respiratory rate 2022-03-10 17:15:00 20 /min [facility] Body height 2022-03-10 17:15:00 167.6 cm [facility] Body weight 2022-03-10 17:15:00 72.938 kg [facility] BMI 2022-03-10 17:15:00 25.95 kg/m2 [facility] Systolic blood pressure 2022-02-24 16:18:00 109 mm[Hg] [facility] Diastolic blood pressure 2022-02-24 16:18:00 68 mm[Hg] [facility] Heart rate 2022-02-24 16:18:00 83 /min [facility] Body temperature 2022-02-24 16:18:[address] [facility] Respiratory rate 2022-02-24 16:18:00 18 /min [facility] Body height 2022-02-24 16:18:00 167.6 cm [facility] Body weight 2022-02-24 16:18:00 69.673 kg [facility] BMI 2022-02-24 16:18:00 24.79 kg/m2 [facility] Systolic blood pressure 2022-02-10 19:32:00 135 mm[Hg] [facility] Diastolic blood pressure 2022-02-10 19:32:00 90 mm[Hg] [facility] Heart rate 2022-02-10 19:32:00 130 /min [facility] Body temperature 2022-02-10 19:32:[address] [facility] Respiratory rate 2022-02-10 19:32:00 20 /min [facility] Body height 2022-02-10 19:32:00 167.6 cm [facility] Body weight 2022-02-10 19:32:00 71.215 kg [facility] BMI 2022-02-10 19:32:00 25.34 kg/m2 [facility] Systolic blood pressure 2022-01-27 15:32:00 127 mm[Hg] [facility] Diastolic blood pressure 2022-01-27 15:32:00 77 mm[Hg] [facility] Heart rate 2022-01-27 15:32:00 99 /min [facility] Body temperature 2022-01-27 15:32:[address] [facility] Respiratory rate 2022-01-27 15:32:00 20 /min [facility] Body height 2022-01-27 15:32:00 167.6 cm [facility] Body weight 2022-01-27 15:32:00 70.988 kg [facility] BMI 2022-01-27 15:32:00 25.26 kg/m2 [facility] Systolic blood pressure 2021-12-23 14:24:00 118 mm[Hg] [facility] Diastolic blood pressure 2021-12-23 14:24:00 77 mm[Hg] [facility] Heart rate 2021-12-23 14:24:00 87 /min [facility] Body temperature 2021-12-23 14:24:[address] [facility] Respiratory rate 2021-12-23 14:24:00 18 /min [facility] Body height 2021-12-23 14:24:00 167.6 cm [facility] Body weight 2021-12-23 14:24:00 70.761 kg [facility] BMI 2021-12-23 14:24:00 25.18 kg/m2 [facility] Systolic blood pressure 2021-12-09 14:24:00 118 mm[Hg] [facility] Diastolic blood pressure 2021-12-09 14:24:00 79 mm[Hg] [facility] Heart rate 2021-12-09 14:24:00 88 /min [facility] Body temperature 2021-12-09 14:24:[address] [facility] Respiratory rate 2021-12-09 14:24:00 16 /min [facility] Body height 2021-12-09 14:24:00 167.6 cm [facility] Body weight 2021-12-09 14:24:00 72.53 kg [facility] BMI 2021-12-09 14:24:00 25.81 kg/m2 [facility] Oxygen saturation in Arterial blood by Pulse oximetry 2021-12-09 14:24:00 97 /min [facility] Systolic blood pressure 2021-10-12 18:17:00 124 mm[Hg] [facility] Diastolic blood pressure 2021-10-12 18:17:00 90 mm[Hg] [facility] Heart rate 2021-10-12 18:17:00 112 /min [facility] Body temperature 2021-10-12 18:17:[address] [facility] Respiratory rate 2021-10-12 18:17:00 20 /min [facility] Body height 2021-10-12 18:17:00 167.6 cm [facility] Body weight 2021-10-12 18:17:00 68.04 kg [facility] BMI 2021-10-12 18:17:00 24.21 kg/m2 [facility] Procedures Procedure Date / Time Performed Performing Clinician Source POCT TEST 2024-01-15 00:00:00 Nava Castañeda [facility] SLEEP LAB RESULTS 2023-12-12 22:35:[address] [facility] SLEEP STUDY DATA REPORT 2023-12-12 22:34:[address] [facility] POCT TEST 2023-11-02 13:41:[address] [facility] POCT TEST 2023-09-17 08:10:[address] [facility] URINALYSIS 2023-09-17 08:08:00 Jone Deleon [facility] COMP. METABOLIC PANEL (34029) 2023-08-27 02:06:[address] [facility] CBC WITH DIFF 2023-08-27 02:06:00 Narda Blackwell [facility] URINALYSIS 2023-08-27 02:06:00 [facility] POCT TEST 2023-08-24 13:41:00 Nava Castañeda [facility] POCT TEST 2023-08-10 21:53:00 Nava Castañeda [facility] GC & CHLAMYDIA AMPLIFIED ASSAY 2023-02-08 22:47:[address] [facility] TRICHOMONAS AMPLIFIED ASSAY 2023-02-08 22:47:[address] [facility] POCT TEST 2023-02-08 22:44:[address] [facility] ASSIGNMENT OF BENEFITS 2023-02-08 22:03:35 Docto r Unassigned, Cambalache [facility] PROTEIN CREAT RATIO URINE RANDOM 2022-07-29 05:00:00 Kasey Blanco [facility] CBC WITH DIFF 2022-07-25 10:37:[address] [facility] COMP. METABOLIC PANEL ([id number]) 2022-07-25 03:06:00 Francis Kasey [facility] CBC WITH DIFF 2022-07-25 03:06:[address] [facility] PROTEIN CREAT RATIO URINE RANDOM 2022-07-25 03:06:00 Francis Kasey [facility] CBC WITH DIFF 2022-07-22 08:27:00 Adum, Hetal Min [facility] [facility] WITH DIFF 2022-07-22 08:27:00 Adum, Hetal Min [facility] SECTION 2022-07-21 18:36:00 Adum, Hetal Villegas [facility] SECTION 2022-07-21 18:36:00 [facility]UNOASSAY) - COMPREHENSIVE DRUG SCREEN W/O REFLEX 2022-07-21 18:12:00 Adum, Hetal Mario [facility] URINE DRUG (IMMUNOASSAY) - COMPREHENSIVE DRUG SCREEN W/O REFLEX 2022-07-21 18:12:00 Adum, Hetal Mario [facility] CBC WITH DIFF 2022-07-21 16:52:00 Adum, Hetal Min [facility] HEPATITIS B SURFACE ANTIGEN 2022-07-21 16:52:00 Adum, Hetal Mario [facility] HB ABO GROUPING 2022-07-21 16:52:00 Adum, Hetal Avendano [facility] ADC OR [place] ONLY - RPR 2022-07-21 16:52:00 Adum, Hetal Fabiano [facility] HIV 1/2 AG-AB WITH REFLEX 2022-07-21 16:52:00 Adum, Hetal Fabiano [facility] CBC WITH DIFF 2022-07-21 16:52[facility]00 [facility]TIGEN 2022-07-21 16:52:00 Adum, Hetal Fabiano [facility] HB ABO GROUPING 2022-07-21 16:52:00 Adum, Hetaleliseo Avendano [facility] ADC OR [place] ONLY - RPR 2022-07-21 16:52:00 Adum, Hetal Fabiano [facility] HIV 1/2 AG-AB WITH REFLEX 2022-07-21 16:52:00 Adum, Hetal L [facility] RHO (D) IMMUNE GLOBULIN 2022-07-21 16:52:00 Kasey Aviles [facility] ONLY - FERN TEST 2022-07-21 16:06:00 Adum, Hetal L [facility] ONLY - FERN TEST 2022-07-21 16:06:00 Adum, Hetal Fabiano [facility] CONSENT/REFUSAL FOR DIAGNOSIS AND TREATMENT 2022-07-21 15:31:39 Doctor Unassigned, [place] [facility] CONSENT/REFUSAL FOR DIAGNOSIS AND TREATMENT 2022-07-21 15:31:39 Doctor Unassigned, [place] [facility] URINALYSIS 2022-07-17 16:35:00 Adum, Hetaleliseo Dickinson [facility] ONLY - FERN TEST 2022-07-17 16:35:00 Adum, Hetal Fabiano [facility] URINALYSIS 2022-07-11 06:30:00 Austin Arzola [facility] ADC CLC OR LCC ONLY - WET PREP 2022-07-11 06:30:[address] [facility] NOTICE OF PRIVACY PRACTICES 2022-07-11 03:43:30 Doctor Unassigned, [place] [facility] CONSENT/REFUSAL FOR DIAGNOSIS AND TREATMENT 2022-07-11 03:43:01 Doctor Unassigned, [place] [facility] ASSIGNMENT OF BENEFITS 2022-07-11 03:42:40 Docto r Unassigned, [place] [facility] POCT URINALYSIS 2022-07-08 19:23:[address] [facility] L&D VISIT (NON-DELIVERED) 2022-07-06 05:01:00 Doctor Unassigned, [place] [facility] ASSIGNMENT OF BENEFITS 2022-07-06 04:55:57 Docto r Unassigned, [place] [facility] POCT URINALYSIS 2022-06-23 19:48:[address] [facility] POCT URINALYSIS 2022-06-09 18:04:[address] [facility] TDAP VACCINE, >11 YRS, IM 2022-05-26 15:59:[address] [facility] GLUCOSE 1 HOUR POST PRANDIAL 2022-05-12 21:16:[address] [facility] CBC WITH DIFF 2022-05-12 21:16:[address] [facility] POCT URINALYSIS 2022-05-12 20:18:[address] [facility] POCT URINALYSIS 2022-04-28 17:24:[address] [facility] SECOND AND THIRD TRIMESTER ULTRASOUND 2022-04-14 15:44:[address] [facility] POCT URINALYSIS 2022-03-31 16:02:[address] [facility] POCT URINALYSIS 2022-03-10 00:00:[address] [facility] POCT URINALYSIS 2022-02-24 16:30:[address] [facility] POCT URINALYSIS 2022-02-10 00:00:[address] [facility] POCT URINALYSIS 2022-01-27 15:33:[address] [facility] REPORT OF 2021-12-23 05:01:00 Doctor Mal scott, [place] [facility] POCT TEST 2021-12-23 00:00:[address] [facility] POCT URINALYSIS W/O SPECIFIC GRAVITY 2021-12-23 00:00:00 Antonette Luque [facility] FIRST TRIMESTER LESS THAN 14 WEEKS WITH TRANSVAGINAL 2021-12-14 21:24:[address] [facility] ASSIGNMENT OF BENEFITS 2021-12-14 19:54:43 Docto r Unassigned, [place] [facility] POCT TEST 2021-12-09 00:00:[address] [facility] POCT TEST 2021-10-12 18:22:[address] [facility] Encounters Start Date/Time End Date/Time Encounter Type Admission Type Attending [facility] Facility Care Department Encounter ID Source 2022-07-24 07:39:17 Outpatient P VELEZ-ADAMARIS S, KASEY VELEZ-ADAMARIS S, KASEY RIMB ELIAZAR [id number] [facility] 2022-07-11 03:19:31 Outpatient X RIMB ELIAZAR [id number] [facility] 2020-12-27 22:10:58 [facility] [id number] [facility] 2020-12-27 22:10:[address] [facility] [id number] [facility] 2020-12-27 19:19:43 Outpatient P [facility] [id number] [facility] 2020-12-27 19:19:36 Outpatient P [facility] [id number] [facility] 2024-04-15 08:15:00 2024-04-15 08:33:05 Outpatient R NAVA CASTAÑEDA [facility] [id number] [facility] 2024-04-15 08:15:00 2024-04-15 08:33:05 Office Visit Nava Castañeda [facility] MEDICAL OFFICE PROFESSIONAL INSTRUCTOR [facility] MATERNAL & CHILD [facility] 1.2840.114 350.1.13.10 4.2.7.2.686 [id number] [facility] 2023-12-12 00:00:00 2024-04-13 06:49:25 Orders Only Jennifer Gomez [facility] 1.2.840.114 350.1.13.10 4.2.7.2.686 [id number] [facility] 2023-12-12 00:00:00 2024-04-13 06:49:21 Orders Only Jennifer Gomez [facility] 1.2840.114 350.1.13.10 4.2.7.2.686 [id number] [facility] 2024-02-12 11:00:00 2024-02-12 11:03:52 Outpatient R NAVA CASTAÑEDA [facility] [id number] [facility] 2024-02-12 11:00:00 2024-02-12 11:03:52 Office Visit Nava Castañeda [facility] MEDICAL OFFICE PROFESSIONAL INSTRUCTOR [facility] & CHILD [facility] 1.840.114 350.1.13.10 4.2.7.2.686 [id number] 107 [id number] [facility] 2023-12-15 00:00:00 2024-01-20 18:27:59 Patient Secure Msg Doctor Unassigned, [place] Doctor Unassigned, [place] [facility] 1.2840.114 350.1.13.10 4.2.7.2.686 [id number] [facility] 2024-01-16 00:00:00 2024-01-19 11:06:04 Telephone Jennifer Gomez [facility] DANYA?[facility] 1.2840.114 350.1.13.10 4.2.7.2.686 [id number] [facility] 2024-01-17 13:00:00 2024-01-17 13:33:20 Outpatient R WOLFGANG SMALLS STRAHIL [facility] [id number] [facility] 2024-01-17 13:00:00 2024-01-17 13:33:20 Office Visit Wolfgang Smalls [facility] BUILDING 1.114 350.1.13.10 4.2.7.2.686 [id number] [facility] 2024-01-15 07:45:00 2024-01-15 08:36:29 Outpatient R NAVA CASTAÑEDA [facility] [id number] [facility] 2024-01-15 07:45:00 2024-01-15 08:36:29 Office Visit Nava Castañeda [facility] MEDICAL OFFICE PROFESSIONAL INSTRUCTOR [facility] MATERNAL & [facility]ILD [facility] 1..114 350.1.13.10 4.2.7.2.686 [id number] [facility] 2024-01-01 09:00:00 2024-01-01 09:00:00 Outpatient R NAVA CASTAÑEDA [facility] [id number] [facility] 2023-11-09 00:00:00 2023-12-16 18:29:42 Patient Secure Msg Doctor Unassigned, [place] Doctor Unassigned, [place] [facility] MEDICAL OFFICE BUILDING 1.114 350.1.13.10 4.2.7.2.686 [id number] [facility] 2023-12-13 00:00:00 2023-12-13 07:33:28 Telephone Jennifer Gomez [facility] MEDICAL OFFICE BUILDING 1.114 350.1.13.10 4.2.7.2.686 [id number] [facility] 2023-12-11 09:15:00 2023-12-11 09:47:17 Outpatient R NAVA CASTAÑEDA [facility] [id number] [facility] 2023-12-11 09:15:00 2023-12-11 09:47:17 Office Visit Nava Castañeda [facility] MEDICAL OFFICE PROFESSIONAL INSTRUCTOR [facility] MATERNAL & CHILD [facility] 1.840.114 350.1.13.10 4.2.7.2.686 [id number] [facility] 2023-12-07 09:30:00 2023-12-07 09:45:00 Supervisor Visit [facility] Wolfgang Smalls [facility] 1.840.114 350.1.13.10 4.2.7.2.686 [id number] [facility] 2023-12-07 09:30:00 2023-12-07 09:30:00 Outpatient R WOLFGANG SMALLS [facility]AH[facility] [id number] [facility] 2023-12-05 10:00:00 2023-12-05 10:00:[address] [facility] [id number] [facility] 2023-11-09 00:00:00 2023-11-09 15:05:28 Patient Secure Msg Doctor Unassigned, [place] Doctor Unassigned, [place] [facility] MEDICAL OFFICE BUILDING 1.840.114 350.1.13.10 4.2.7.2.686 [id number] [facility] 2023-11-09 00:00:00 2023-11-09 11:16:11 Telephone Jennifer Gomez [facility] MEDICAL OFFICE BUILDING 1..840.114 350.1.13.10 4.2.7.2.686 [id number] [facility] 2023-11-07 10:00:00 2023-11-07 10:00:00 Outpatient R WOLFGANG SMALLS STRAHIL [facility] [id number] [facility] 2023-11-02 09:15:00 2023-11-02 09:30:00 Supervisor Visit Lab, Ang - Jennifer Borrero Lab, Ang [facility] OFFICE BUILDING 1..840.114 350.1.13.10 4.2.7.2.686 [id number] [facility] 2023-11-02 09:15:00 2023-11-02 09:15:00 Outpatient R JENNIFER GOMEZ [facility] [id number] [facility] 2023-11-02 08:00:00 2023-11-02 08:45:10 Office Visit Jennifer Gomez [facility] MED[facility] OFFICE BUILDING 1..840.114 350.1.13.10 4.2.7.2.686 [id number] [facility] 2023-11-01 00:00:00 2023-11-01 10:09:58 Refill Nava Castañeda [facility] MEDICAL OFFICE PROFESSIONAL INSTRUCTOR [facility] & CHILD [facility] 1..840.114 350.1.13.10 4.2.7.2.686 [id number] [facility] 2023-09-21 09:00:00 2023-09-21 09:41:54 Outpatient R NAVA CASTAÑEDA [facility] [id number] [facility] 2023-09-21 09:00:00 2023-09-21 09:41:54 Office Visit Nava Castañeda [facility] MEDICAL OFFICE PROFESSIONAL INSTRUCTOR [facility] & CHILD [facility] 1..840.114 350.1.13.10 4.2.7.2.686 [id number] [facility] 2023-09-20 14:00:00 2023-09-20 14:00:[address] [facility] [id number] [facility] 2023-09-18 00:00:00 2023-09-19 08:26:55 Telephone [facility] MEDICAL OFFICE PROFESSIONAL INSTRUCTOR [facility] MATERNAL & CHILD [facility] 1.840.114 350.1.13.10 4.2.7.2.686 [id number] [facility] 2023-09-17 02:19:00 2023-09-17 04:39:00 Emergency X SHERIJONE WILLIAM [facility] ERT [id number] [facility] 2023-09-17 02:19:00 2023-09-17 04:39:00 Emergency Jone Deleon [facility] 1.840.114 350.1.13.10 4.2.7.2.686 [id number] [facility] 2023-08-26 20:47:00 2023-08-26 22:56:00 Emergency X NARDA BLACKWELL [facility] ERT [id number] [facility] 2023-08-26 20:47:00 2023-08-26 22:56:00 Emergency Narda Blackwell [facility] 1.840.114 350.1.13.10 4.2.7.2.686 [id number] [facility] 2023-08-24 07:15:00 2023-08-24 08:09:48 Outpatient R GARRY NAVA [facility] [id number] [facility] 2023-08-24 07:15:00 2023-08-24 08:09:48 Office Visit Nava Castañeda [facility] MEDICAL OFFICE PROFESSIONAL INSTRUCTOR [facility] & CHILD [facility] 1.840.114 350.1.13.10 4.2.7.2.686 [id number] [facility] 2023-08-17 07:15:00 2023-08-17 07:15:00 Outpatient R NAVA CASTAÑEDA [facility] [id number] [facility] 2023-08-15 00:00:00 2023-08-15 00:00:00 Telephone Nava Castañeda [facility] MEDICAL OFFICE PROFESSIONAL INSTRUCTOR [facility] & CHILD [facility] 1..840.114 350.1.13.10 4.2.7.2.686 [id number] [facility] 2023-08-10 13:30:00 2023-08-10 14:01:12 Outpatient R NAVA CASTAÑEDA [facility] [id number] [facility] 2023-08-10 13:30:00 2023-08-10 14:01:12 Office Visit Nava Castañeda [facility]/GYN [facility] & CHILD [facility] 1..840.114 350.1.13.10 4.2.7.2.686 [id number] [facility] 2023-07-19 07:00:00 2023-07-19 07:00:00 Outpatient R TUSHAR LAN [facility] [id number] [facility] 2023-06-29 10:45:00 2023-06-29 10:45:00 Outpatient R TUSHAR LAN [facility] [id number] [facility] 2023-06-27 12:30:00 2023-06-27 12:30:00 Outpatient R ANTONETTE LUQUE [facility] [id number] [facility] 2023-02-09 10:30:00 2023-02-09 10:45:00 Supervisor Visit Lab, Ang-Rmchp Tushar Lan [facility] CHILD [facility] ..840.114 350.1.13.10 4.2.7.2.686 [id number] [facility] 2023-02-09 10:30:00 2023-02-09 10:30:00 Outpatient R TUSHAR LAN [facility] [id number] [facility] 2023-02-08 16:00:00 2023-02-08 16:42:47 Outpatient R TUSHAR LAN [facility] [id number] [facility] 2023-02-08 16:00:00 2023-02-08 16:42:47 Office Visit BrynTushar youssef [facility] MEDICAL OFFICE PROFESSIONAL INSTRUCTOR [facility] MATERNAL & CHILD [facility] 1.840.114 350.1.13.10 4.2.7.2.686 [id number] [facility] 2023-02-08 00:00:00 2023-02-08 00:00:00 Orders Only Doctor Unassigned, [place] [facility] 1..840.114 350.1.13.10 4.2.7.2.686 [id number] [facility] 2022-12-08 14:45:00 2022-12-08 14:45:00 Outpatient R TUSHAR LAN [facility] [id number] [facility] 2022-09-07 15:15:00 2022-09-07 16:22:49 Outpatient R TUSHAR LAN [facility] [id number] [facility] 2022-08-29 00:00:00 2022-08-29 00:00:00 Telephone BrynbernyjohnathanTushar Ashely [facility] MEDICAL OFFICE PROFESSIONAL INSTRUCTOR [facility] & CHILD [facility] 1.840.114 350.1.13.10 4.2.7.2.686 [id number] [facility] 2022-08-29 00:00:00 2022-08-29 00:00:00 Telephone BrynTushar youssef [facility] MEDICAL OFFICE PROFESSIONAL INSTRUCTOR [facility] & CHILD [facility] 1..840.114 350.1.13.10 4.2.7.2.686 [id number] 107 [id number] [facility] 2022-08-12 10:00:00 2022-08-12 11:16:38 Outpatient R TUSHAR LAN [facility] [id number] [facility] 2022-08-12 10:00:00 2022-08-12 11:16:38 Routine Visit Tushar Lan [facility] MEDICAL OFFICE PROFESSIONAL INSTRUCTOR [facility] & CHILD [facility] 1.2840.114 350.1.13.10 4.2.7.2.686 [id number] [facility] 2022-08-01 09:30:00 2022-08-01 10:21:06 Nurse Visit Visit, Tk-Rmp Nurse Tushar Lan [facility] MEDICAL OFFICE PROFESSIONAL INSTRUCTOR [facility] & CHILD [facility] 1.840.114 350.1.13.10 4.2.7.2.686 [id number] [facility] 2022-08-01 09:30:00 2022-08-01 09:30:00 Outpatient R TUSHAR LAN [facility] [id number] [facility] 2022-08-01 00:00:00 2022-08-01 00:00:00 Patient Secure Msg Tushar Lan [facility] MEDICAL OFFICE PROFESSIONAL INSTRUCTOR [facility] & CHILD [facility] 1..840.114 350.1.13.10 4.2.7.2.686 [id number] [facility] 2022-08-01 00:00:00 2022-08-01 00:00:00 Patient Secure Msg Tushar Lan [facility] MEDICAL OFFICE PROFESSIONAL INSTRUCTOR [facility] CHILD [facility] .84.114 350.1.13.10 4.2.7.2.686 [id number] [facility] 2022-07-28 20:06:00 2022-07-29 12:45:00 Outpatient P HETAL NORRIS [facility] ELIAZAR [id number] [facility] 2022-07-28 20:06:00 2022-07-29 12:45:00 Hospital Encounter Velez-Adamaris s, Kasey Hetal Norris [facility] 1.2.840.114 350.1.13.10 4.2.7.2.686 [id number] [facility] 2022-07-27 00:00:00 2022-07-27 00:00:00 Nurse Triage Patt Nova [facility] 1.2.840.114 350.1.13.10 4.2.7.2.686 [id number] [facility] 2022-07-26 00:00:00 2022-07-26 00:00:00 Telephone Tushar Lan [facility] MEDICAL OFFICE PROFESSIONAL INSTRUCTOR [facility] MATERNAL & CHILD HEALTH [facility] 1.2.840.114 350.1.13.10 4.2.7.2.686 [id number] [facility] 2022-07-24 09:28:00 2022-07-25 12:30:00 Outpatient P VELEZ-ADAMARIS S, KASEY VELEZ-ADAMARIS S, KASEY [facility] 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 [id number] [facility] 2022-07-24 09:28:00 2022-07-25 12:30:00 Hospital Encounter Velez-Adamaris s, Kasey [facility] 1.2.840.114 350.1.13.10 4.2.7.2.686 [id number] [facility] 2022-07-21 10:37:00 2022-07-23 13:45:00 Inpatient X HETAL NORRIS [facility] EL[facility]ZAR [id number] [facility] 2022-07-21 10:37:00 2022-07-23 13:45:00 Hospital Encounter Hetal Norris [facility] 1.2.840.114 350.1.13.10 4.2.7.2.686 [id number] [facility] 2022-07-21 12:35:00 2022-07-21 14:27:00 Surgery AdHetal michele [facility] 1.2840.114 350.1.13.10 4.2.7.2.686 [id number] [facility] 2022-07-21 10:45:00 2022-07-21 10:45:00 Outpatient R TUSHAR LAN [facility] [id number] [facility] 2022-07-19 00:00:00 2022-07-19 00:00:00 Case Management AdHetal michele [facility] 1.2840.114 350.1.13.10 4.2.7.2.686 [id number] [facility] 2022-07-17 10:38:00 2022-07-17 12:40:00 Outpatient X HETAL NORRIS [facility] [id number] [facility] 2022-07-17 10:38:00 2022-07-17 12:40:00 Emergency AdHetal michele [facility] 1.2840.114 350.1.13.10 4.2.7.2.686 [id number] [facility] 2022-07-10 22:46:00 2022-07-11 03:10:00 Outpatient X AUSTIN ARZOLA [facility] [id number] [facility] 2022-07-10 22:46:00 2022-07-11 03:10:00 Emergency Austin Arzola [facility] 1.284.114 350.1.13.10 4.2.7.2.686 [id number] [facility] 2022-07-11 00:00:00 2022-07-11 00:00:00 Telephone Tushar Lan [facility] MEDICAL OFFICE PROFESSIONAL INSTRUCTOR REGIONAL MATERNAL & CHILD [facility] 1.2.840.114 350.1.13.10 4.2.7.2.686 [id number] [facility] 2022-07-08 14:15:00 2022-07-08 14:41:47 Outpatient R TUSHAR LAN [facility] [id number] [facility] 2022-07-08 14:15:00 2022-07-08 14:41:47 Routine Visit Tushar Lan [facility] MEDICAL OFFICE PROFESSIONAL INSTRUCTOR [facility] & CHILD [facility] 1.2.840.114 350.1.13.10 4.2.7.2.686 [id number] [facility] 2022-07-06 00:06:00 2022-07-06 04:42:00 Outpatient P ADHETAL MICHELE [facility] ELIAZAR [id number] [facility] 2022-07-06 00:06:00 2022-07-06 04:42:00 Emergency AdHetal michele [facility] 1.2.840.114 350.1.13.10 4.2.7.2.686 [id number] [facility] 2022-07-06 00:00:00 2022-07-06 00:00:00 Orders Only Doctor Unassigned, [place] [facility] 1.2840.114 350.1.13.10 4.2.7.2.686 [id number] [facility] 2022-07-05 00:00:00 2022-07-05 00:00:00 Orders Only Doctor Unassigned, [place] [facility] 1.2.840.114 350.1.13.10 4.2.7.2.686 [id number] [facility] 2022-06-23 14:45:00 2022-06-23 15:08:35 Outpatient [address] [facility] [id number] [facility] 2022-06-23 14:45:00 2022-06-23 15:08:35 Routine Visit Tushar Lan MEDICAL OFFICE PROFESSIONAL INSTRUCTOR [facility] 1.2.840.114 350.1.13.10 4.2.7.2.686 [id number] [facility] 2022-06-16 13:00:00 2022-06-16 13:00:00 Outpatient R TUSHAR LAN [facility] [id number] [facility] 2022-06-09 12:45:00 2022-06-09 13:24:30 Outpatient R TUSHAR LAN [facility] [id number] [facility] 2022-06-09 12:45:00 2022-06-09 13:24:30 Routine Visit Tushar Lan [facility] MEDICAL OFFICE PROFESSIONAL INSTRUCTOR [facility] 1.2.840.114 350.1.13.10 4.2.7.2.686 [id number] [facility] 2022-06-02 10:30:00 2022-06-02 10:42:00 Nurse Visit Visit, Ang-Rmchp Nurse Tushar Lan MEDICAL OFFICE PROFESSIONAL INSTRUCTOR [facility] 1.2.840.114 350.1.13.10 4.2.7.2.686 [id number] [facility] 2022-06-02 10:30:00 2022-06-02 10:30:00 Outpatient [address] T[address]AR LAN [facility] [id number] [facility] 2022-05-26 10:30:00 2022-05-26 11:07:20 [id number] 2022-05-26 10:30:00 2022-05-26 11:07:20 Routine Visit Tushar Lan [facility] MEDICAL OFFICE PROFESSIONAL INSTRUCTOR [facility] [facility] 1.2.840.114 350.1.13.10 4.2.7.2.686 [id number] 107 [id number] [facility] 2022-05-19 10:30:00 2022-05-19 11:03:10 Nurse Visit Visit, Tushar Osei [facility] MEDICAL OFFICE PROFESSIONAL INSTRUCTOR [facility] CHILD [facility] 1.2.840.114 350.1.13.10 4.2.7.2.686 [id number] 107 [id number] [facility] 2022-05-19 10:30:00 2022-05-19 10:30:00 Outpatient R TUSHAR LAN [facility] [id number] [facility] 2022-05-12 14:45:00 2022-05-12 15:46:52 Outpatient R TUSHAR LAN [facility] [id number] [facility] 2022-05-12 14:45:00 2022-05-12 15:46:52 Routine Visit Tushar Lan [facility] 1.2.840.114 350.1.13.10 4.2.7.2.686 [id number] 107 [id number] [facility] 2022-05-05 10:30:00 2022-05-05 10:45:51 Nurse Visit Visit, WestRmchp Tushar Thomas [facility] MEDICAL OFFICE PROFESSIONAL INSTRUCTOR [facility] & CHILD [facility] 1.2.840.114 350.1.13.10 4.2.7.2.686 [id number] 107 [id number] [facility] 2022-05-05 10:30:00 2022-05-05 10:30:00 Outpatient R TUSHAR LAN [facility] [id number] [facility] 2022-04-28 11:00:00 2022-04-28 11:44:12 Outpatient R TUSHAR LAN [facility] [id number] [facility] 2022-04-28 11:00:00 2022-04-28 11:44:12 Routine Visit Tushar Lan [facility] MEDICAL OFFICE PROFESSIONAL INSTRUCTOR [facility] & CHILD [facility] 1.2.840.114 350.1.13.10 4.2.7.2.686 [id number] [facility] 2022-04-21 10:00:00 2022-04-21 10:30:36 Nurse Visit Visit, Antonette Ojeda [facility] MEDICAL OFFICE PROFESSIONAL INSTRUCTOR [facility] & CHILD [facility] 1.2840.114 350.1.13.10 4.2.7.2.686 [id number] 107 [id number] [facility] 2022-04-21 10:00:00 2022-04-21 10:00:00 Outpatient R ANTONETTE LUQUE [facility] [id number] [facility] 2022-04-14 09:15:00 2022-04-14 11:39:36 Routine Visit Risk, Neftali-N p/High Shereen Sky [facility] MEDICAL OFFICE PROFESSIONAL INSTRUCTOR [facility] & CHILD [facility] 1.2.840.114 350.1.13.10 4.2.7.2.686 [id number] 107 [id number] [facility] 2022-04-14 10:30:00 2022-04-14 10:45:00 Nurse Visit Visit, Tushar Osei [facility] MEDICAL OFFICE PROFESSIONAL INSTRUCTOR [facility] CHILD [facility] 1.2840.114 350.1.13.10 4.2.7.2.686 [id number] 107 [id number] [facility] 2022-04-14 09:30:00 2022-04-14 10:39:28 [address] P [address]EN SKY [facility] [id number] [facility] 2022-04-14 09:30:00 2022-04-14 10:39:28 Supervisor Visit Ultrasound, WestMfShereen Orona [facility] MEDICAL OFFICE PROFESSIONAL INSTRUCTOR [facility] & CHILD [facility] 1.2.840.114 350.1.13.10 4.2.7.2.686 [id number] [facility] 2022-04-14 10:30:00 2022-04-14 10:30:[address] [facility] [id number] [facility] 2022-04-14 00:00:00 2022-04-14 00:00:00 Case Management Antonette Luque [facility] MEDICAL OFFICE PROFESSIONAL INSTRUCTOR [facility] CHILD [facility] 1.2.840.114 350.1.13.10 4.2.7.2.686 [id number] 107 [id number] [facility] 2022-04-07 13:00:00 2022-04-07 13:13:39 Nurse Visit Visit, Tk-Rmchp Nurse Tushar Lan [facility] MEDICAL OFFICE PROFESSIONAL INSTRUCTOR [facility] CHILD [facility] 1..840.114 350.1.13.10 4.2.7.2.686 [id number] 107 [id number] [facility] 2022-04-07 13:00:00 2022-04-07 13:00:[address] [facility] [id number] [facility] 2022-04-07 00:00:00 2022-04-07 00:00:00 Telephone Tushar Lan [facility] MEDICAL OFFICE PROFESSIONAL INSTRUCTOR [facility] CHILD [facility] 1..840.114 350.1.13.10 4.2.7.2.686 [id number] 107 [id number] [facility] 2022-03-31 09:45:00 2022-03-31 10:58:49 [address] R [address] C[address] [facility] [id number] [facility] 2022-03-31 09:45:00 2022-03-31 10:58:49 Routine Visit Risk, Ang-Rmchp-N p/High Edwin Cage [facility] MEDICAL OFFICE PROFESSIONAL INSTRUCTOR [facility] MATERNAL & CHILD [facility] 1.2.840.114 350.1.13.10 4.2.7.2.686 [id number] 107 [id number] [facility] 2022-03-24 10:00:00 2022-03-24 10:00:00 Nurse Visit Visit, Ang-Rmchp Nurse Tushar Lan [facility] MEDICAL OFFICE PROFESSIONAL INSTRUCTOR [facility] MATERNAL & CHILD [facility] 1.2.840.114 350.1.13.10 4.2.7.2.686 [id number] 107 [id number] [facility] 2022-03-24 10:00:00 2022-03-24 09:55:[address] [facility] [id number] [facility] 2022-03-15 00:00:00 2022-03-15 00:00:00 Telephone Tushar Lan [facility] MEDICAL OFFICE PROFESSIONAL INSTRUCTOR [facility] CHILD [facility] 1.2840.114 350.1.13.10 4.2.7.2.686 [id number] 107 [id number] [facility] 2022-03-10 11:00:00 2022-03-10 11:45:31 [address] [facility] [facility] [id number] [facility] 2022-03-10 11:00:00 2022-03-10 11:45:31 Routine Visit Risk, Ang-Rmchp-N p/High Ewdin Cage [facility] MEDICAL OFFICE PROFESSIONAL INSTRUCTOR [facility] MATERNAL & CHILD [facility] 1.2840.114 350.1.13.10 4.2.7.2.686 [id number] 107 [id number] [facility] 2022-03-10 10:30:00 2022-03-10 10:30:[address] [facility] [id number] [facility] 2022-03-07 00:00:00 2022-03-07 00:00:00 Telephone Tushar Lan [facility] MEDICAL OFFICE PROFESSIONAL INSTRUCTOR [facility] MATERNAL & CHILD [facility] 1.2.840.114 350.1.13.10 4.2.7.2.686 [id number] 107 [id number] [facility] 2022-03-07 00:00:00 2022-03-07 00:00:00 Case Management Edwin Cage [facility] MEDICAL OFFICE PROFESSIONAL INSTRUCTOR [facility] CHILD [facility] 1..840.114 350.1.13.10 4.2.7.2.686 [id number] 107 [id number] [facility] 2022-02-24 10:00:00 2022-02-24 11:04:[address] [facility] [id number] [facility] 2022-02-24 10:00:00 2022-02-24 11:04:18 Routine Visit Risk, Ang-Rmchp-N p/High Edwin Cage [facility] MEDICAL OFFICE PROFESSIONAL INSTRUCTOR [facility] & CHILD [facility] 1..840.114 350.1.13.10 4.2.7.2.686 [id number] 107 [id number] [facility] 2022-02-10 13:15:00 2022-02-10 13:59:[address] [facility] [id number] [facility] 2022-02-10 13:15:00 2022-02-10 13:59:26 Routine Visit Risk, Ang-Rmchp-N p/High Edwin Cage [facility] MEDICAL OFFICE PROFESSIONAL INSTRUCTOR [facility] & CHILD [facility] 1.2.840.114 350.1.13.10 4.2.7.2.686 [id number] 107 [id number] [facility] 2022-01-27 09:00:00 2022-01-27 10:00:[address] [facility] [id number] [facility] 2022-01-27 09:00:00 2022-01-27 10:00:53 Routine Visit Risk, Neftali-N p/Edwin Melendez [facility] MEDICAL OFFICE PROFESSIONAL INSTRUCTOR [facility] & CHILD [facility] 1..114 350.1.13.10 4.2.7.2.686 [id number] 107 [id number] [facility] 2022-01-10 00:00:00 2022-01-10 00:00:00 Case Management Antonette Luque [facility] MEDICAL OFFICE PROFESSIONAL INSTRUCTOR [facility] & CHILD [facility] 1..114 350.1.13.10 4.2.7.2.686 [id number] 107 [id number] [facility] 2022-01-06 15:15:00 2022-01-06 15:45:00 Supervisor Visit Ultrasound, Leonardo Cooper David [facility] MEDICAL OFFICE PROFESSIONAL INSTRUCTOR [facility] & CHILD [facility] 1.84.114 350.1.13.10 4.2.7.2.686 [id number] [facility] 2022-01-06 15:15:00 2022-01-06 15:15:[address] [facility] [id number] [facility] 2021-12-30 10:00:00 2021-12-30 10:00:[address] TROY [address]ERYAL [facility] [id number] [facility] 2021-12-23 09:15:00 2021-12-23 10:41:[address] [facility] [id number] [facility] 2021-12-23 09:15:00 2021-12-23 10:41:00 Initial Visit Provider, Niki Mayfield Brenda A [facility] MEDICAL OFFICE PROFESSIONAL INSTRUCTOR [facility] & CHILD [facility] 1.84.114 350.1.13.10 4.2.7.2.686 [id number] [facility] 2021-12-23 00:00:00 2021-12-23 00:00:00 Orders Only Doctor Unassigned, [place] [facility] 1.2.840.114 350.1.13.10 4.2.7.2.686 [id number] [facility] 2021-12-17 00:00:00 2021-12-17 00:00:00 [facility] 1.2.840.114 350.1.13.10 4.2.7.2.686 [id number] [facility] 2021-12-14 14:55:04 2021-12-14 23:59:00 Outpatient R CLAUDIO SARA SNYDER [facility] [id number] [facility] 2021-12-14 14:55:04 2021-12-14 23:59:00 Hospital Encounter Sara Snyder [facility] 1.2.840.114 350.1.13.10 4.2.7.2.686 [id number] [facility] 2021-12-14 00:00:00 2021-12-14 00:00:00 Orders Only Doctor Unassigned, [place] [facility] 1.2.840.114 350.1.13.10 4.2.7.2.686 [id number] [facility] 2021-12-09 09:00:00 2021-12-09 09:43:20 Outpatient R ADAMGUNNER HARRISMARSHAL FUNESMADELEINESARA [facility] [id number] [facility] 2021-12-09 09:00:00 2021-12-09 09:43:20 Initial Visit Sara Snyder [facility] 1.2.840.114 350.1.13.10 4.2.7.2.686 [id number] [facility] 2021-10-12 13:00:00 2021-10-12 13:34:47 Office Visit Tushar Lan [facility] MEDICAL OFFICE PROFESSIONAL INSTRUCTOR [facility] CHILD [facility] 1.2840.114 350.1.13.10 4.2.7.2.686 [id number] 107 [id number] [facility] 2021-10-12 13:00:00 2021-10-12 13:34:47 Outpatient R TUSHAR LAN [facility] [id number] [facility] 2021-10-12 13:00:00 2021-10-12 13:00:00 Outpatient R TUSHAR LAN [facility] [id number] [facility] 2021-10-12 13:00:00 2021-10-12 13:00:00 Outpatient R TUSHAR LAN [facility] [id number] [facility] 2021-10-12 00:00:00 2021-10-12 00:00:00 Orders Only Doctor Unassigned, [place] [facility] 1.2840.114 350.1.13.10 4.2.7.2.686 [id number] [facility] 2021-09-28 12:45:00 2021-09-28 14:31:13 Outpatient R TUSHAR LAN [facility] [id number] [facility] 2021-09-28 12:45:00 2021-09-28 14:31:13 Office Visit Tushar Lan [facility] MEDICAL OFFICE PROFESSIONAL INSTRUCTOR [facility] CHILD [facility] 1.2840.114 350.1.13.10 4.2.7.2.686 [id number] 107 [id number] [facility] 2021-08-05 16:15:00 2021-08-05 16:15:[address] [facility] [id number] [facility] 2021-06-18 11:00:00 2021-06-18 11:00:00 Outpatient R MARY ANN CRUMP [facility] [id number] [facility] 2021-06-15 00:00:00 2021-06-15 00:00:00 Orders Only Doctor Unassigned, [place] [facility] 1.0.114 350.1.13.10 4.2.7.2.686 [id number] [facility] 2021-06-15 00:00:00 2021-06-15 00:00:00 Patient Secure Msg Doctor Unassigned, [place] [facility] 1..114 350.1.13.10 4.2.7.2.686 [id number] [facility] 2021-03-09 14:00:00 2021-03-09 14:00:00 Outpatient R TUSHAR LAN [facility] [id number] [facility] 2021-03-02 00:00:00 2021-03-02 00:00:00 Telephone Tushar Lan [facility] MEDICAL OFFICE PROFESSIONAL INSTRUCTOR [facility] CHILD [facility] 1.0.114 350.1.13.10 4.2.7.2.686 [id number] 107 [id number] [facility] 2021-02-12 00:00:00 2021-02-12 00:00:00 Ernesto Hoffman [facility] MEDICAL OFFICE PROFESSIONAL INSTRUCTOR [facility] MATERNAL & CHILD [facility] 1.840.114 350.1.13.10 4.2.7.2.686 [id number] 107 [id number] [facility] 2021-02-11 00:00:00 2021-02-11 00:00:00 Tushar Galaviz [facility] MEDICAL OFFICE PROFESSIONAL INSTRUCTOR [facility] CHILD [facility] 1.840.114 350.1.13.10 4.2.7.2.686 [id number] 107 [id number] [facility] 2021-01-27 00:00:00 2021-01-27 00:00:00 Refill Ernesto Peacock [facility] MEDICAL OFFICE PROFESSIONAL INSTRUCTOR [facility] CHILD [facility] 1..840.114 350.1.13.10 4.2.7.2.686 [id number] 107 [id number] [facility] 2021-01-18 16:00:00 2021-01-18 16:18:34 Outpatient R ERNESTO PEACOCK [facility] [id number] [facility] 2021-01-18 15:59:18 2021-01-18 16:18:34 Office Visit Ernesto Peacock [facility] MEDICAL OFFICE PROFESSIONAL INSTRUCTOR [facility]ILD [facility] 1..840.114 350.1.13.10 4.2.7.2.686 [id number] 107 [id number] [facility] 2021-01-18 16:00:00 2021-01-18 16:00:00 Outpatient R ERNESTO [facility] [facility] [id number] [facility] 2021-01-15 13:15:00 2021-01-15 13:15:00 Outpatient R ERNESTO [facility] [facility] [id number] [facility] 2020-12-11 00:00:00 2020-12-11 00:00:00 Telephone Tushar Lan [facility] MEDICAL OFFICE PROFESSIONAL INSTRUCTOR [facility] CHILD [facility] ..840.114 350.1.13.10 4.2.7.2.686 [id number] 107 [id number] [facility] 2020-10-20 13:30:06 2020-10-20 14:12:47 Office Visit Niki Ralph [facility] MEDICAL OFFICE PROFESSIONAL INSTRUCTOR [facility] CHILD [facility] 1..840.114 350.1.13.10 4.2.7.2.686 [id number] 107 [id number] [facility] 2020-10-20 13:30:00 2020-10-20 13:30:00 Outpatient R RAMO MARTÍNBREONNAVenice [facility] [id number] [facility] 2020-10-14 15:00:00 2020-10-14 15:00:00 Outpatient R TUSHAR LAN [facility] [id number] [facility] 2020-10-12 14:17:44 2020-10-12 15:03:31 Office Visit Tushar Lan [facility] MEDICAL OFFICE PROFESSIONAL INSTRUCTOR [facility] MATERNAL & CHILD [facility] 1.0.114 350.1.13.10 4.2.7.2.686 [id number] 107 [id number] [facility] 2020-10-12 14:30:00 2020-10-12 14:30:00 Outpatient R TUSHAR LAN [facility] [id number] [facility] 2020-09-28 08:30:00 2020-09-28 08:30:00 Outpatient R TUSHAR LAN [facility] [id number] [facility] 2020-09-28 00:00:00 2020-09-28 00:00:00 Telephone Ernesto Peacock [facility] MEDICAL OFFICE PROFESSIONAL INSTRUCTOR [facility] CHILD [facility] 1.0.114 350.1.13.10 4.2.7.2.686 [id number] 107 [id number] [facility] 2020-09-25 00:00:00 2020-09-25 00:00:00 Telephone Tushar Lan [facility] MEDICAL OFFICE PROFESSIONAL INSTRUCTOR [facility] CHILD [facility] 1.2840.114 350.1.13.10 4.2.7.2.686 [id number] 107 [id number] [facility] 2020-09-24 14:14:05 2020-09-24 14:29:05 Office Visit Tushar Lan [facility] MEDICAL OFFICE PROFESSIONAL INSTRUCTOR [facility]ILD [facility] 1.2840.114 350.1.13.10 4.2.7.2.686 [id number] 107 [id number] [facility] 2020-09-24 14:15:00 2020-09-24 14:15:00 Outpatient R TUSHAR LAN [facility] [id number] [facility] 2020-09-08 16:00:00 2020-09-08 16:00:00 Outpatient R ERNESTO [address] [facility] [id number] [facility] 2020-08-18 13:04:51 2020-08-18 13:45:53 Routine Visit Tushar Lan [facility] MEDICAL OFFICE PROFESSIONAL INSTRUCTOR [facility]ILD [facility] ..840.114 350.1.13.10 4.2.7.2.686 [id number] 107 [id number] [facility] 2020-08-18 13:15:00 2020-08-18 13:15:00 Outpatient R TUSHAR LAN [facility] [id number] [facility] 2020-08-06 11:00:00 2020-08-06 11:00:00 Outpatient R ERNESTO [address] [facility] [id number] [facility] 2020-08-06 08:21:04 2020-08-06 09:08:19 Nurse Visit Visit, Ang-Rmchp Nurse Tushar Lan [facility] MEDICAL OFFICE PROFESSIONAL INSTRUCTOR [facility] CHILD [facility] ..840.114 350..13.10 4.2.7.2.686 [id number] 107 [id number] [facility] 2020-08-06 09:00:00 2020-08-06 09:00:00 Outpatient R TUSHAR LAN [facility] [id number] [facility] 2020-08-04 00:00:00 2020-08-04 00:00:00 Telephone Ernesto Peacock [facility] MEDICAL OFFICE PROFESSIONAL INSTRUCTOR [facility] CHILD [facility] ..840.114 350.1.13.10 4.2.7.2.686 [id number] 107 [id number] [facility] 2020-08-01 00:00:00 2020-08-01 00:00:00 Encounter 1.2.840.1 [id number] 3.104.2.7 [id number] 1.2.840.114 350.1.13.10 4.2.7.2.696 [id number] [facility] 2020-07-26 14:30:00 2020-07-28 17:45:00 Hospital Encounter ZakiacheloRosio Vien Cam [facility] 1.2.840.114 350.1.13.10 4.2.7.2.686 [id number] [facility] 2020-07-27 10:49:00 2020-07-27 16:19:00 Anesthesia Event Dylan Prieto [facility] 1.2.840.114 350.1.13.10 4.2.7.2.686 [id number] [facility] 2020-07-26 19:50:09 2020-07-26 19:50:09 Anesthesia Event Angelica Sifuentes [facility] 1.2.840.114 350.1.13.10 4.2.7.2.686 [id number] [facility] 2020-07-21 12:46:13 2020-07-21 13:17:55 Routine Visit Ernesto Peacock [facility] MEDICAL OFFICE PROFESSIONAL INSTRUCTOR [facility]ERNAL & [facility] 1.2.840.114 350.1.13.10 4.2.7.2.686 [id number] 107 [id number] [facility] 2020-07-21 12:45:00 2020-07-21 12:45:[address] [facility] [id number] [facility] 2020-07-12 02:00:00 2020-07-12 03:20:00 Hospital Encounter Hetal Norris [facility] 1.2.840.114 350.1.13.10 4.2.7.2.686 [id number] [facility] 2020-07-07 10:39:36 2020-07-07 11:15:55 Routine Visit Ernesto Peacock [facility] MEDICAL OFFICE PROFESSIONAL INSTRUCTOR [facility] CHILD [facility] 1.2.840.114 350.1.13.10 4.2.7.2.686 [id number] [facility] 2020-07-07 10:45:00 2020-07-07 10:45:[address] [facility] [id number] [facility] 2020-06-26 00:00:00 2020-06-26 00:00:00 Telephone Tushar Lan [facility] MEDICAL OFFICE PROFESSIONAL INSTRUCTOR [facility] MAT[facility]NAL & CHILD [facility] 1.2.840.114 350.1.13.10 4.2.7.2.686 [id number] 107 [id number] [facility] 2020-06-26 00:00:00 2020-06-26 00:00:00 Patient Secure Msg Ernesto Peacock [facility] MEDICAL OFFICE PROFESSIONAL INSTRUCTOR [facility] CHILD [facility] 1.2.840.114 350.1.13.10 4.2.7.2.686 [id number] 107 [id number] [facility] 2020-06-23 14:10:30 2020-06-23 14:38:56 Routine Visit Ernesto Peacock [facility] MEDICAL OFFICE PROFESSIONAL INSTRUCTOR [facility] CHILD [facility] 1.2.840.114 350.1.13.10 4.2.7.2.686 [id number] 107 [id number] [facility] 2020-06-23 14:15:00 2020-06-23 14:15:00 Outpatient R ERNESTO PE[facility] [facility] [id number] [facility] 2020-06-11 00:00:00 2020-06-11 00:00:00 Orders Only Doctor Unassigned, [place] [facility] 1.2840.114 350.1.13.10 4.2.7.2.686 [id number] [facility] 2020-06-09 14:16:51 2020-06-09 14:55:17 Routine Visit Niki Ralph Emily N [facility] MEDICAL OFFICE PROFESSIONAL INSTRUCTOR [facility] & CHILD [facility] 1.840.114 350.1.13.10 4.2.7.2.686 [id number] [facility] 2020-06-09 14:15:00 2020-06-09 14:15:[address] [facility] [id number] [facility] 2020-06-02 00:00:00 2020-06-02 00:00:00 Orders Only Doctor Unassigned, [place] [facility] 1.20.114 350.1.13.10 4.2.7.2.686 [id number] [facility] 2020-06-01 00:00:00 2020-06-01 00:00:00 Refill Tushar Lan [facility] 1.840.114 350.1.13.10 4.2.7.2.686 [id number] [facility] 2020-05-21 12:58:26 2020-05-21 13:13:26 Supervisor Visit Lab, Ang-Rmchp Tushar Lan [facility] MEDICAL OFFICE [facility] 1.840.114 350.1.13.10 4.2.7.2.686 [id number] [facility] 2020-05-21 13:00:00 2020-05-21 13:00:[address] [facility] [id number] [facility] 2020-05-19 12:45:26 2020-05-19 13:11:32 Routine Visit Ernesto Peacock [facility] MEDICAL OFFICE PROFESSIONAL INSTRUCTOR [facility] & CHILD [facility] ..840.114 350.1.13.10 4.2.7.2.686 [id number] [facility] 2020-05-19 12:45:00 2020-05-19 12:45:[address] [facility] [id number] [facility] 2020-05-19 00:00:00 2020-05-19 00:00:00 Patient Outreach Jeffery Dumont [facility] 1..840.114 350.1.13.10 4.2.7.2.686 [id number] [facility] 2020-04-23 15:54:18 2020-04-23 16:11:16 Routine Visit Ernesto Peacock [facility] MEDICAL OFFICE PROFESSIONAL INSTRUCTOR [facility] & CHILD [facility] 1..840.114 350.1.13.10 4.2.7.2.686 [id number] [facility] 2020-04-23 16:00:00 2020-04-23 16:00:00 Outpatient R ERNESTO [facility] [id number] [facility] 2020-04-14 12:45:00 2020-04-14 12:45:00 Outpatient R ERNESTO [facility] [id number] [facility] 2020-04-09 13:55:54 2020-04-09 14:54:41 Supervisor Visit Ultrasound, Radha Alvarado [facility] MEDICAL OFFICE PROFESSIONAL INSTRUCTOR [facility] & CHILD [facility] ..840.114 350.1.13.10 4.2.7.2.686 [id number] [facility] 2020-04-09 14:00:00 2020-04-09 14:00:[address] [facility] [id number] [facility] 2020-04-07 00:00:00 2020-04-07 00:00:00 Telephone Ernesto Peacock [facility] MEDICAL OFFICE PROFESSIONAL INSTRUCTOR [facility] & CHILD [facility] 1.284.114 350.1.13.10 4.2.7.2.686 [id number] 107 [id number] [facility] 2020-03-26 00:00:00 2020-03-26 00:00:00 Orders Only Doctor Unassigned, [place] [facility] 1.284.114 350.1.13.10 4.2.7.2.686 [id number] [id number] [facility] 2020-03-17 12:49:30 2020-03-17 13:34:04 Routine Visit Ernesto Peacock [facility] MEDICAL OFFICE PROFESSIONAL INSTRUCTOR [facility] CHILD [facility] 1.840.114 350.1.13.10 4.2.7.2.686 [id number] 107 [id number] [facility] 2020-03-17 13:00:00 2020-03-17 13:00:00 Outpatient R ERNESTO PEACOCK [facility] [id number] [facility] 2020-02-25 00:00:00 2020-02-25 00:00:00 Telephone Ernesto Peacock [facility] MEDICAL OFFICE PROFESSIONAL INSTRUCTOR [facility] & CHILD [facility] 1.840.114 350.1.13.10 4.2.7.2.686 [id number] [facility] 2020-02-18 14:45:00 2020-02-18 14:45:00 Outpatient R ERNESTO PEAC[facility] [id number] [facility] 2020-02-18 14:09:04 2020-02-18 14:39:35 Routine Visit Ernesto Peacock [facility] MEDICAL OFFICE PROFESSIONAL INSTRUCTOR [facility] & CHILD [facility] 1.2840.114 350.1.13.10 4.2.7.2.686 [id number] 107 [id number] [facility] 2020-02-03 00:00:00 2020-02-03 00:00:00 Telephone Tushar Lan Ashely [facility] MEDICAL OFFICE PROFESSIONAL INSTRUCTOR [facility] & CHILD [facility] 1.84.114 350.1.13.10 4.2.7.2.686 [id number] 107 [id number] [facility] 2020-02-03 00:00:00 2020-02-03 00:00:00 Refill Doctor Unassigned, [place] [facility] MEDICAL OFFICE PROFESSIONAL INSTRUCTOR [facility] & CHILD [facility] 1..114 350.1.13.10 4.2.7.2.686 [id number] [facility] 2020-01-21 15:20:02 2020-01-21 16:02:58 Routine Visit Ernesto Peacock [facility] MEDICAL OFFICE PROFESSIONAL INSTRUCTOR [facility] & CHILD [facility] 1.84.114 350.1.13.10 4.2.7.2.686 [id number] 107 [id number] [facility] 2020-01-21 15:30:00 2020-01-21 15:30:00 Outpatient R ERNESTO PEACOCK [facility] [id number] [facility] 2020-01-18 00:00:00 2020-01-18 00:00:00 Refill Doctor Unassigned, [place] [facility] MEDICAL OFFICE PROFESSIONAL INSTRUCTOR [facility] CHILD [facility] 1.84.114 350.1.13.10 4.2.7.2.686 [id number] 107 [id number] [facility] 2020-01-09 14:52:31 2020-01-09 15:17:04 Supervisor Visit Ultrasound, Shereen Sheridan [facility] MEDICAL OFFICE PROFESSIONAL INSTRUCTOR [facility] & CHILD [facility] 1..114 350.1.13.10 4.2.7.2.686 [id number] [facility] 2020-01-09 14:45:00 2020-01-09 14:45:[address] [facility] [id number] [facility] 2020-01-09 00:00:00 2020-01-09 00:00:00 Abstract Ernesto Peacock [facility] MEDICAL OFFICE PROFESSIONAL INSTRUCTOR [facility] & CHILD [facility] 1.2840.114 350.1.13.10 4.2.7.2.686 [id number] 107 [id number] [facility] 2019-12-27 00:00:00 2019-12-27 00:00:00 Telephone Tushar Lan [facility] MEDICAL OFFICE PROFESSIONAL INSTRUCTOR [facility] & CHILD [facility] 1.20.114 350.1.13.10 4.2.7.2.686 [id number] 107 [id number] [facility] 2019-12-26 13:39:00 2019-12-26 15:06:17 Initial Visit Ernesto Peacock [facility] MEDICAL OFFICE PROFESSIONAL INSTRUCTOR [facility] & CHILD [facility] 1.840.114 350.1.13.10 4.2.7.2.686 [id number] 107 [id number] [facility] 2019-12-26 13:45:00 2019-12-26 13:45:00 Outpatient R ERNESTO PEACOCK [facility] [id number] [facility] 2019-12-26 00:00:00 2019-12-26 00:00:00 Orders Only Doctor Unassigned, [place] [facility] 1.840.114 350.1.13.10 4.2.7.2.686 [id number] [id number] [facility] 2019-12-09 13:15:00 2019-12-09 13:15:[address]AR LAN [facility] [id number] [facility] 2019-10-28 00:00:00 2019-10-28 00:00:00 Telephone Tushar Lan [facility] MEDICAL OFFICE PROFESSIONAL INSTRUCTOR [facility] & CHILD [facility] 1.284.114 350.1.13.10 4.2.7.2.686 [id number] 107 [id number] 2019-10-28 00:00:2019-10-28 00:00:00 Telephone Tushar Lan [facility] MEDICAL OFFICE PROFESSIONAL INSTRUCTOR [facility] & CHILD [facility] 1.2.840.114 350.1.13.10 4.2.7.2.686 [id number] 107 [id number] [facility] 2019-10-09 08:16:20 2019-10-09 08:48:41 Office Visit Tushar Lan [facility] MEDICAL OFFICE PROFESSIONAL INSTRUCTOR [facility] CHILD [facility] 1.2.840.114 350.1.13.10 4.2.7.2.686 [id number] 107 [id number] 2019-10-09 08:16:20 2019-10-09 08:48:41 Office Visit Tushar Lan [facility] MEDICAL OFFICE PROFESSIONAL INSTRUCTOR [facility] CHILD [facility] 1.2.840.114 350.1.13.10 4.2.7.2.686 [id number] 107 [id number] [facility] 2019-10-09 08:15:00 2019-10-09 08:15:00 Outpatient R REIDJOHNATHANRUBYTUSHAR [facility] [id number] [facility] 2019-10-07 10:30:00 2019-10-07 10:30:00 Outpatient [address]USHAR [facility] [id number] [facility] 2019-09-27 00:00:00 2019-09-27 00:00:00 Telephone Tushar Lan [facility] MEDICAL OFFICE PROFESSIONAL INSTRUCTOR [facility] CHILD [facility] 1.2.840.114 350.1.13.10 4.2.7.2.686 [id number] 107 [id number] [facility] 2019-09-25 00:00:00 2019-09-25 00:00:00 Refill ReidjohnathanStevenTushar C [facility] MEDICAL OFFICE PROFESSIONAL INSTRUCTOR [facility] CHILD [facility] 1.2.840.114 350.1.13.10 4.2.7.2.686 [id number] 107 [id number] [facility] 2019-08-19 00:00:00 2019-08-19 00:00:00 Telephone Tushar Lan [facility] MEDICAL OFFICE PROFESSIONAL INSTRUCTOR [facility] & CHILD [facility] 1..114 350.1.13.10 4.2.7.2.686 [id number] 107 [id number] [facility] 2019-08-16 00:00:00 2019-08-16 00:00:00 Case Management Selam Alves [facility] MEDICAL OFFICE PROFESSIONAL INSTRUCTOR [facility] & CHILD [facility] 1..114 350.1.13.10 4.2.7.2.686 [id number] [facility] 2019-08-15 10:43:37 2019-08-15 11:14:30 Office Visit Provider, Selam Gallegos [facility] MEDICAL OFFICE PROFESSIONAL INSTRUCTOR [facility] CHILD [facility] 1..114 350.1.13.10 4.2.7.2.686 [id number] 107 [id number] [facility] 2019-08-15 10:45:00 2019-08-15 10:45:00 Outpatient R SELAM ALVES [facility] [id number] [facility] 2019-07-23 00:00:00 2019-07-23 00:00:00 Telephone Tushar Lan [facility] MEDICAL OFFICE PROFESSIONAL INSTRUCTOR [facility] CHILD [facility] 1..114 350.1.13.10 4.2.7.2.686 [id number] 107 [id number] [facility] 2019-07-19 00:00:00 2019-07-19 00:00:00 Orders Only Doctor Unassigned, [place] [facility] 1..114 350.1.13.10 4.2.7.2.686 [id number] [facility] 2019-07-08 07:39:54 2019-07-08 09:35:12 Telemedici ne Visit Tushar Lan [facility] MEDICAL OFFICE PROFESSIONAL INSTRUCTOR [facility] & CHILD [facility] 1.2.840.114 350.1.13.10 4.2.7.2.686 [id number] 107 [id number] [facility] 2019-07-08 09:30:00 2019-07-08 09:30:00 [id number] 2019-07-05 00:00:00 2019-07-05 00:00:00 Telephone Steven Lanilola Ashely [facility] MEDICAL OFFICE PROFESSIONAL INSTRUCTOR [facility] CHILD [facility] 1.2.840.114 350.1.13.10 4.2.7.2.686 [id number] 107 [id number] [facility] 2019-04-29 00:00:00 2019-04-29 00:00:00 Telephone ReidSteven mannTushar C [facility] MEDICAL OFFICE PROFESSIONAL INSTRUCTOR [facility] CHILD [facility] 1.2.840.114 350.1.13.10 4.2.7.2.686 [id number] [facility] 2019-04-01 00:00:00 2019-04-01 00:00:00 Telephone Tushar Lan [facility] MEDICAL OFFICE PROFESSIONAL INSTRUCTOR [facility] CHILD [facility] 1.2.840.114 350.1.13.10 4.2.7.2.686 [id number] 107 [id number] [facility] 2019 10:39:31 2019 11:16:49 Office Visit Steven Lanilola Ashely [facility] MEDICAL OFFICE PROFESSIONAL INSTRUCTOR [facility] & CHILD [facility] 1.2.840.114 350.1.13.10 4.2.7.2.686 [id number] 107 [id number] [facility] 2019 00:00:00 2019 00:00:00 Orders Only Doctor Unassigned, [place] [facility] 1.2.840.114 350.1.13.10 4.2.7.2.686 [id number] [facility] 2018-12-20 09:37:41 2018-12-20 10:39:11 Office Visit Tushar Lan 1.2.840.1 01544.1.1 3.104.2.7 [id number] [facility] 2018-12-20 00:00:00 2018-12-20 00:00:00 Telephone Tushar Lan 1.2.840.1 83920.1.1 3.104.2.7 [id number] [facility] 2018-12-20 00:00:00 2018-12-20 00:00:00 Orders Only Doctor Unassigned, [place] 1.2.840.1 [id number] 3.104.2.7 [id number] [facility] Results Test Description Test Time Test Comments Results Result Co mments Source [facility] [id number] 13:42:00* Test Item Value Reference Range Interpretation Comme nts POCT PREG (test code = 1605) Negative On board controls acceptable with C Line (test code = 3574) Yes POCT PREG LOT # (test code = 3575) [id number] POCT PREG TEST DATE ( test code = 3576) 01/14/2025 [facility] [id number] 08:10:00* Test Item Value Reference Range Interpretation Comme nts POCT PREG (test code = 1605) Negative On board controls acceptable with C Line (test code = 3574) Yes POCT PREG LOT # (test code = 3575) [id number] POCT PREG TEST DATE ( test code = 3576) 2024-07-06 Lab Interpretation (test cod e = 92551-6) Normal [facility] METABOLIC PANEL (25941)2023-08-27 02:51:02* Test Item Value Reference Range Interpretation Comme nts NA (test code = 5767505882) 139 mmol/L 135-145 K (test code = 1526101854) 3.7 mmol/L 3.5-5.0 CL (test code = 8883581068) 104 mmol/L 98-108 CO2 TOTAL (test code = 7361687942) 29 mmol/L 23-31 AGAP (test code = 9087464984) 6 2-16 BUN (test code = 9769595324) 15 mg/dL 7-23 GLUCOSE (test code = 2932929464) 93 mg/dL 70-110 CREATININE (test code = 2160-0) 0.77 mg/dL 0.50-1.04 TOTAL BILI (test code = 4367658807) 0.9 mg/dL 0.1-1.1 CALCIUM (test code = 9509060838) 9.1 mg/dL 8.6-10.6 T PROTEIN (test code = 1618130162) 7.8 g/dL 6.3-8.2 ALBUMIN (test code = 6685772886) 4.3 g/dL 3.5-5.0 ALK PHOS (test code = 1394610023) 50 U/L 34-122 ALTv (test code = 1742-6) 10 U/L 5-35 AST(SGOT) (test code = 3823378753) 40 U/L 13-40 eGFR (test code = 04797-7) 112.7 mL/min/1.73m2 CKD-EPI eGFR (20 21). Assuming creatinine has been stable day-to-day for at least three months, the eGFR indicates Category G1 (>= 90 mL/min/1.73 m2) [facility] WITH [id number] 02:25:57* Test Item Value Reference Range Interpretation [...] g/dL 31.6-35.1 L RDW-SD (test code = 72283-1) 43.6 fL 39.0-49.9 RDW-CV (test code = 788-0) 16.1 % 12.0-15.5 H PLT (test code = 777-3) 295 166-358 MPV (test code = 17750-1) 10.7 fL 9.5-12.9 NRBC/100 WBC (test code = 6319153805) 0.0 0.0-10.0 NRBC x10^3 (test code = 2394176511) See_Comment [Automated messa ge] The system which generated this result transmitted reference range: 10*3/?L. The reference range was not used to interpret this result as normal/abnormal. GRAN MAT (NEUT) % (test code = 770-8) 49.4 % IMM GRAN % (test code = 1586803764) 0.10 % LYMPH % (test code = 736-9) 38.0 % MONO % (test code = 5905-5) 7.2 % EOS % (test code = 713-8) 4.3 % BASO % (test code = 706-2) 1.0 % GRAN MAT x10^3(ANC) (test code = 0354684850) 3.36 10*3/uL 1.88-7.09 IMM GRAN x10^3 (test code = 3928823072) 0.00-0.06 LYMPH x10^3 (test code = 731-0) 2.59 10*3/uL 1.32-3.29 MONO x10^3 (test code = 742-7) 0.49 10*3/uL 0.33-0.92 EOS x10^3 (test code = 711-2) 0.29 10*3/uL 0.03-0.39 BASO x10^3 (test code = 704-7) 0.07 10*3/uL 0.01-0.07 Lab Interpretation (test code = 92527-5) Abnormal [facility] [id number] 13:41:00* Test Item Value Reference Range Interpretation Comme nts POCT PREG (test code = 1605) Negative On board controls acceptable with C Line (test code = 3574) Yes POCT PREG LOT # (test code = 3575) POCT PREG TEST DATE ( test code = 3576) [facility] [id number] 21:53:00* Test Item Value Reference Range Interpretation Comme nts POCT PREG (test code = 1605) Negative On board controls acceptable with C Line (test code = 3574) Yes POCT PREG LOT # (test code = 3575) POCT PREG TEST DATE ( test code = 3576) [facility] [id number] 21:53:00* Test Item Value Reference Range Interpretation Comme nts POCT PREG (test code = 1605) Negative On board controls acceptable with C Line (test code = 3574) Yes POCT PREG LOT # (test code = 3575) POCT PREG TEST DATE ( test code = 3576) [facility] [id number] 22:45:00* Test Item Value Reference Range Interpretation Comme nts POCT PREG (test code = 1605) Negative On board controls acceptable with C Line (test code = 3574) Yes POCT PREG LOT # (test code = 3575) POCT PREG TEST DATE ( test code = 3576) [facility] [id number] 22:45:00* Test Item Value Reference Range Interpretation Comme nts POCT PREG (test code = 1605) Negative On board controls acceptable with C Line (test code = 3574) Yes POCT PREG LOT # (test code = 3575) POCT PREG TEST DATE ( test code = 3576) [facility] with Idtfjigcbdty4058-42-24 11:42:42* Test Item Value Reference Range Interpretation [...] g/dL 31.6-35.1 L RDW-SD (test code = 39658-5) 38.7 fL 39.0-49.9 L RDW-CV (test code = 788-0) 15.1 % 12.0-15.5 PLT (test code = 777-3) 338 See_Comment [Automated messa ge] The system which generated this result transmitted reference range: 166 - 358 10*3/?L. The reference range was not used to interpret this result as normal/abnormal. MPV (test code = 16321-7) 10.1 fL 9.5-12.9 NRBC/100 WBC (test code = 6416498472) 0.0 See_Comment [Automated [employer] ssage] The system which generated this result transmitted reference range: 0.0 - 10.0 /100 WBCs. The reference range was not used to interpret this result as normal/abnormal. NRBC x10^3 (test code = 0944456549) See_Comment [Automated messa ge] The system which generated this result transmitted reference range: 10*3/?L. The reference range was not used to interpret this result as normal/abnormal. GRAN MAT (NEUT) % (test code = 770-8) 72.3 % IMM GRAN % (test code = 0534375656) 0.90 % LYMPH % (test code = 736-9) 18.3 % MONO % (test code = 5905-5) 5.8 % EOS % (test code = 713-8) 2.5 % BASO % (test code = 706-2) 0.2 % GRAN MAT x10^3(ANC) (test code = 3420562308) 7.24 10*3/uL 1.88-7.09 H IMM GRAN x10^3 (test code = 8832042915) 0.09 10*3/uL 0.00-0.06 H LYMPH x10^3 (test code = 731-0) 1.83 10*3/uL 1.32-3.29 MONO x10^3 (test code = 742-7) 0.58 10*3/uL 0.33-0.92 EOS x10^3 (test code = 711-2) 0.25 10*3/uL 0.03-0.39 BASO x10^3 (test code = 704-7) 0.01-0.07 Lab Interpretation (test code = 01923-9) [facility]normal [facility] (44556)2022-07-25 03:39:13* Test Item Value Reference Range Interpretation Comme nts NA (test code = 3912616343) 138 mmol/L 135-145 K (test code = 8929378918) 3.1 mmol/L 3.5-5.0 L CL (test code = 8410297896) 109 mmol/L 98-108 H CO2 TOTAL (test code = 2374828104) 21 mmol/L 23-31 L AGAP (test code = 3469725714) 8 2-16 BUN (test code = 2880227522) 12 mg/dL 7-23 GLUCOSE (test code = 7547555124) 100 mg/dL 70-110 CREATININE (test code = 8213618622) 0.44 mg/dL 0.50-1.04 L TOTAL BILI (test code = 7643868752) 1.1 mg/dL 0.1-1.1 CALCIUM (test code = 1202005728) 8.1 mg/dL 8.6-10.6 L T PROTEIN (test code = 3473919408) 6.1 g/dL 6.3-8.2 L ALBUMIN (test code = 5120893730) 2.9 g/dL 3.5-5.0 L ALK PHOS (test code = 6786425521) 101 U/L 34-122 ALTv (test code = 1742-6) 11 U/L 5-35 AST(SGOT) (test code = 4896187739) 19 U/L 13-40 eGFR (test code = 9165426375) 182.3 mL/min/1.73m2 ARGENIS (test code = ARGENIS) [...] imaging tests). Lab Interpretation (test code = 52202-0) Abnormal [facility] WITH [id number] 03:29:32* Test Item Value Reference Range Interpretation Comme nts WBC (test code = 6690-2) 9.87 See_Comment [Automated [employer]] The system which generated this result transmitted reference range: 4.30 - 11.10 10*3/?L. The reference range was not used to interpret this result as normal/abnormal. RBC (test code = 789-8) 3.57 See_Comment L [Automated [employer] The system which generated this result transmitted [...] 31.8 g/dL 31.6-35.1 RDW-SD (test code = 32651-1) 38.3 fL 39.0-49.9 L RDW-CV (test code = 788-0) 15.1 % 12.0-15.5 PLT (test code = 777-3) 279 See_Comment [Automated [employer]] The system which generated this result transmitted reference range: 166 - 358 10*3/?L. The reference range was not used to interpret this result as normal/abnormal. MPV (test code = 74886-5) 10.3 fL 9.5-12.9 NRBC/100 WBC (test code = 6479655812) 0.0 See_Comment [Automated [employer] ssage] The system which generated this result transmitted reference range: 0.0 - 10.0 /100 WBCs. The reference range was not used to interpret this result as normal/abnormal. NRBC x10^3 (test code = 7936522860) See_Comment [Automated [employer] The system which generated this result transmitted reference range: 10*3/?L. The reference range was not used to interpret this result as normal/abnormal. GRAN MAT (NEUT) % (test code = 770-8) 80.7 % IMM GRAN % (test code = 6082655140) 0.70 % LYMPH % (test code = 736-9) 11.3 % MONO % (test code = 5905-5) 4.9 % EOS % (test code = 713-8) 2.2 % BASO % (test code = 706-2) 0.2 % GRAN MAT x10^3(ANC) (test code = 5625364606) 7.96 10*3/uL 1.88-7.09 H IMM GRAN x10^3 (test code = 2299474860) 0.07 10*3/uL 0.00-0.06 H LYMPH x10^3 (test code = 731-0) 1.12 10*3/uL 1.32-3.29 L MONO x10^3 (test code = 742-7) 0.48 10*3/uL 0.33-0.92 EOS x10^3 (test code = 711-2) 0.22 10*3/uL 0.03-0.39 BASO x10^3 (test code = 704-7) 0.01-0.07 Lab Interpretation (test code = 46255-5) Abnormal [facility] IMMUNE [id number] 00:24:07* Test Item Value Reference Range Interpretation Comme nts RHIG CANDIDATE? (test code = 5188) No- see comment Patient is not a candidate for RhIg- Patient is Rh Positive.Performed at [facility] Laboratory Services - [facility] Blood [address] [place], [place] [id number] Free: [phone] No. [id number] [facility] with Iwtektrsrwmr1342-63-74 11:22:51* Test Item Value Reference Range Interpretation [...] g/dL 31.6-35.1 L RDW-SD (test code = 03563-7) 37.8 fL 39.0-49.9 L RDW-CV (test code = 788-0) 14.6 % 12.0-15.5 PLT (test code = 777-3) 216 See_Comment [Automated message] The system which generated this result transmitted reference range: 166 - 358 10*3/?L. The reference range was not used to interpret this result as normal/abnormal. MPV (test code = 51688-8) 10.8 fL 9.5-12.9 NRBC/100 WBC (test code = 2460514224) 0.0 See_Comment [Automated message] The system which generated this result transmitted reference range: 0.0 - 10.0 /100 WBCs. The reference range was not used to interpret this result as normal/abnormal. NRBC x10^3 (test code = 8618408776) See_Comment [Automated message] The system which generated this result transmitted reference range: 10*3/?L. The reference range was not used to interpret this result as normal/abnormal. SEG % (test code = 81213-3) 83 % 33-76 H BAND % (test code = 26331-6) 9 % 0-1 H LYMPH % (test code = 26503-4) 8 % 14-54 L ANC (test code = 753-4) 20.01 10*3/uL 1.88-7.09 H Lab Interpretation (test code = 62469-0) Abnormal [facility] with Fujawgwzgygn9787-58-22 11:22:51* Test Item Value Reference Range Interpretation [...] g/dL 31.6-35.1 L RDW-SD (test code = 02178-4) 37.8 fL 39.0-49.9 L RDW-CV (test code = 788-0) 14.6 % 12.0-15.5 PLT (test code = 777-3) 216 See_Comment [Automated message] The system which generated this result transmitted reference range: 166 - 358 10*3/?L. The reference range was not used to interpret this result as normal/abnormal. MPV (test code = 40111-3) 10.8 fL 9.5-12.9 NRBC/100 WBC (test code = 1487101011) 0.0 See_Comment [Automated message] The system which generated this result transmitted reference range: 0.0 - 10.0 /100 WBCs. The reference range was not used to interpret this result as normal/abnormal. NRBC x10^3 (test code = 6241284870) See_Comment [Automated message] The system which generated this result transmitted reference range: 10*3/?L. The reference range was not used to interpret this result as normal/abnormal. SEG % (test code = 48996-6) 83 % 33-76 H BAND % (test code = 45916-2) 9 % 0-1 H LYMPH % (test code = 72113-8) 8 % 14-54 L ANC (test code = 753-4) 20.01 10*3/uL 1.88-7.09 H Lab Interpretation (test code = 19894-2) Abnormal [facility] URINALYSIS W SPECIFIC [id number] 19:23:00* Test Item Value Reference Range Interpretation [...] U APPEAR (test code = 3267) . [facility] URINALYSIS W SPECIFIC [id number] 19:48:00* Test Item Value Reference Range Interpretation [...] [facility] (test code = 3267) [facility] [id number] 18:04:00* Test Item Value Reference Range Interpretation [...] = 3267) . [facility] with [id number] 04:55:42* Test Item Value Reference Range Interpretation Comme nts WBC (test code = 6690-2) 12.52 See_Comment H [Automated [employer] The system which generated this result transmitted reference range: 4.30 - 11.10 10*3/?L. The reference range was not used to interpret this result as normal/abnormal. RBC (test code = 789-8) 4.28 See_Comment [Automated [employer] The system which generated this result transmitted [...] 32.4 g/dL 31.6-35.1 RDW-SD (test code = 06286-6) 39.8 fL 39.0-49.9 RDW-CV (test code = 788-0) 13.8 % 12.0-15.5 PLT (test code = [phone] See_Comment [Automated linkedüa ge] The system which generated this result transmitted reference range: 166 - 358 10*3/?L. The reference range was not used to interpret this result as normal/abnormal. MPV (test code = 80244-6) 11.0 fL 9.5-12.9 NRBC/100 WBC (test code = 0055621926) 0.0 See_Comment [Automated me ssage] The system which generated this result transmitted reference range: 0.0 - 10.0 /100 WBCs. The reference range was not used to interpret this result as normal/abnormal. NRBC x10^3 (test code = 9608498889) See_Comment [Automated messa ge] The system which generated this result transmitted reference range: 10*3/?L. The reference range was not used to interpret this result as normal/abnormal. GRAN MAT (NEUT) % (test code = 770-8) 68.4 % IMM GRAN % (test code = 1991416830) 1.10 % LYMPH % (test code = 736-9) 19.6 % MONO % (test code = 5905-5) 6.5 % EOS % (test code = 713-8) 3.8 % BASO % (test code = 706-2) 0.6 % GRAN MAT x10^3(ANC) (test code = 1496930975) 8.56 10*3/uL 1.88-7.09 H IMM GRAN x10^3 (test code = 7198515642) 0.14 10*3/uL 0.00-0.06 H LYMPH x10^3 (test code = 731-0) 2.46 10*3/uL 1.32-3.29 MONO x10^3 (test code = 742-7) 0.82 10*3/uL 0.33-0.92 EOS x10^3 (test code = 711-2) 0.47 10*3/uL 0.03-0.39 H BASO x10^3 (test code = 704-7) 0.07 10*3/uL 0.01-0.07 Lab Interpretation (test code = 77676-7) [facility]normal [facility] [id number] 04:31:20* Test Item Value Reference Range Interpretation Comme nts GLUC 1 HR (test code = 1600568212) 72 mg/dL 120-170 L Lab Interpretation (test cod e = 33151-7) Abnormal [facility] SPECIFIC [id number] 20:18:00* Test Item Value Reference Range Interpretation [...] U APPEAR (test code = 3267) . [facility] URINALYSIS W SPECIFIC [id number] 20:18:00* Test Item Value Reference Range Interpretation [...] U APPEAR (test code = 3267) . [facility] URINALYSIS W SPECIFIC [id number] 17:24:00* Test Item Value Reference Range Interpretation [...] U APPEAR (test code = 3267) . [facility] URINALYSIS W SPECIFIC [id number] 16:03:00* Test Item Value Reference Range Interpretation [...] U APPEAR (test code = 3267) . [facility] URINALYSIS W SPECIFIC [id number] 17:19:00* Test Item Value Reference Range Interpretation [...] U APPEAR (test code = 3267) . [facility] URINALYSIS W SPECIFIC [id number] 17:19:00* Test Item Value Reference Range Interpretation [...] U APPEAR (test code = 3267) . [facility] URINALYSIS W SPECIFIC [id number] 16:39:00* Test Item Value Reference Range Interpretation [...] POCT U APPEAR (test code = 3267) [facility] URINALYSIS W SPECIFIC [id number] 19:37:00* Test Item Value Reference Range Interpretation [...] U APPEAR (test code = 3267) . [facility] URINALYSIS W SPECIFIC [id number] 15:33:00* Test Item Value Reference Range Interpretation [...] U APPEAR (test code = 3267) . [facility] [id number] 14:34:00* Test Item Value Reference Range Interpretation Comme nts POCT PREG (test code = 1605) Positive On board controls acceptable with C Line (test code = 3574) Yes POCT PREG LOT # (test code = 3575) POCT PREG TEST DATE ( test code = 357) [facility] URINALYSIS W/O SPECIFIC [id number] 14:34:00* Test Item Value Reference Range Interpretation [...] = 3257) negative Negative - Negati ve [facility] [id number] 14:34:00* Test Item Value Reference Range Interpretation Comme nts POCT PREG (test code = 1605) Positive On board controls acceptable with C Line (test code = 3574) Yes POCT PREG LOT # (test code = 3575) POCT PREG TEST DATE ( test code = 3576) [facility] URINALYSIS W/O SPECIFIC [id number] 14:34:00* Test Item Value Reference Range Interpretation [...] = 3257) negative Negative - Negati ve [facility] [id number] 14:31:00* Test Item Value Reference Range Interpretation Comme nts POCT PREG (test code = 1605) Positive On board controls acceptable with C Line (test code = 3574) Yes POCT PREG LOT # (test code = 3575) POCT PREG TEST DATE ( test code = 3576) [facility] [id number] 18:26:00* Test Item Value Reference Range Interpretation Comme nts POCT PREG (test code = 1605) Negative On board controls acceptable with C Line (test code = 3574) Yes POCT PREG LOT # (test code = 3575) POCT PREG TEST DATE (test code = 3576) ARGENIS (test code = ARGENIS) accurate developme nt and interpretation of all internal controls [facility] Notes Date/Time Note Provider Source 2024-01-19 11:05:34 All information was provided to patient and she verbalized understanding. No further needs were voiced. [facility] Eunice Welch LVN [facility] 2024-01-18 15:37:00 Monitor without the medicine as below. 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 If persistently > 130/80 with monitoring she can take 1/2 tab of the hctz and follow-up. If she has any chest pain, dizziness, passing out, weakness or shortness of breath she should go to the ER for evaluation. [facility] 2024-01-16 09:39:02 Pt states the rx is causing her BP to drop, she would like to change it. Pt states when it drops the reading is under 100/ under 80. Pt stopped taking the medication 2 weeks ago. RX: hydroCHLOROthiazide 25 mg tablet Please Advise. [facility] [address] [place] [id number] [facility] Meg Tom [facility] 2023-11-09 16:06:54 Attempted to contact patient, left message on voicemail MIGUE Robb has placed orders for you to have more lab work. Apoorva Souza MA [facility] 2023-11-02 09:15:00 Images from the original note were not included. Venipuncture collection performed by clean technique on the right anticubitus. Total of 1 attempts were made. Slight pressure and a bandage/dressing were applied to the site(s). The patient experienced no complications. The following specimens were processed according to instructions and sent to [facility] laboratories per lab order on 11/02/2023 : LT BLUE SST 2 RED LAV 2 PPT DK GREEN (LiHep) DK GREEN (SodH) MORA DK BLUE (K2) DK BLUE (S) ACD Blood Culture NIPT/NTD T [facility] 2023-09-19 08:26:48 Noted. T [facility] 2023-09-19 08:13:31 Attempted to contact patient x3 to schedule appointment, left voicemail for patient to contact clinic to schedule. John Sanz [facility] 2023-09-18 14:57:14 Sil Gaytan is a 23 year old female Pt is calling to notify provider that she is having a lot of pain and requesting to schedule IUD removal procedure. Please contact pt at [phone]. Gregg Talbert [facility] 2023-09-17 04:38:26 Pt given printed and [...] encouraged to follow up with pcp and olive grader. Advised to seek medical attention for new/prolonged/worsening of symptoms. No adverse reaction to meds given in ER noted upon discharge. Awake, alert oriented, resp reg unlabored, skin w/d, pt leaving amb with steady gait, in no apparent distress. [facility] 2023-09-17 02:10:42 Pt arrives ambulatory to Ed c/o sharp shooting pain from low back pelvis are and down right leg. She reports that she has an IUD that was placed a few weeks ago and believes that this is the reason for the new pains. Mary Ann Peacock RN [facility] 2023-09-17 02:07:00 [facility] Emergency Department Note Patient Name: Sil Gaytan Date of : 2000 23 year old female Treatment Room: [place] [address] Primary Care Physician: PATIENT DOES NOT HAVE A PCP Patient Escorted by: Friend [6] Mode of Arrival: Personal means [1] EMS Treatment Prior to ED Arrival: DISTILLER treatment: None Travel and Exposure Screening: Symptoms [...] at this time History provided by: Patient needle molder used: No Past Medical History/Immunizations: Past Medical [...] N/A 07/21/2022 Surgeon: Hetal Norris MD; Location: [facility] AND DELIVERY OR LOCATION TOOTH EXTRACTION [...] home and instructed to follow up with hooking machine operator. Medical Decision Making Problems Addressed: Acute [...] A Relationship: PCP - General [address] [facility] [address] Jatin Cruz Specialty: PED-PEDIATRICS Relationship: PCP - Insurance O [address] [facility] [address] [facility] [id number] Electronically signed by: Jone Deleon MD 09/17/23 0426 [facility] 2023-08-26 22:33:33 Pt given printed and [...] no apparent distress, Mary Ann Ryan RN [facility] 2023-08-26 20:42:59 Pt states " I had my IUD placed on morning, they told if I started clotting really bad to come to the ED. I was to start my period on and I know Im on my period but I don't normally clot with my periods." Carla Navarrete RN [facility] 2023-08-15 16:46:17 Notified the patient of her positive STI results chlamydia. Notified the patient her medication has been sent to her pharmacy on file. Educated patient she should complete the entire course, advised patient to practice safe sex practices and to remain abstinent for at least 1-2 weeks post treatment. Patient desires to have partner treated, call placed to [facility] in [facility] order given for Doxycycline hyclate 100 mg 1 capsule PO BID x 7 days for Name of partner:Kody Rushing :2000 NKDA: Phone number:[phone] Offered std pamphlet for partner education. Patient declinedstd pamphlet to be mailed to partner. Partners address Advised patient on HIV testing if she has not recently been tested. Advised YANICK appointment in 3 months. Pt verbalized understanding. [facility] 2023-08-15 16:43:01 Sil Gaytan is a 23 year old female Pt returning [facility] Yelena El [facility] 2023-08-15 16:34:48 2nd attempt to call patient, no answer, left vm. [facility] 2023-08-15 08:37:49 Attempted to call patient, no answer, left vm. [facility] 2023-08-15 07:25:35 Please make pt aware that she is positive for chlamydia. Rx for doxycycline has been sent to pharmacy. Advise no intercourse until 2 weeks after partner receives treatment. RTC in 3 months for YANICK. [facility]
[2024-06-02 23:58] LABS: Specific Gravity 1.021 (1.005-1.030); Sqamous Epithelial <5 /HPF (None Seen); Urine Bacteria None Seen /HPF (<20); Urine Bilirubin NEGATIVE (Negative); Urine Blood 3+ (Negative); Urine Clarity Extremely Turbid (Clear); Urine Color Light-Yellow (Yellow); Urine Culture Reflex Order REFLEXED; Urine Glucose NEGATIVE (Negative); Urine Ketones NEGATIVE (Negative); Urine Microscopic Reflex YN ORDER UMIC; Urine Mucus Slight /HPF (None Seen); Urine Nitrite NEGATIVE (Negative); Urine Protein 1+ (Negative); Urine RBC >50 /HPF (None Seen); Urine Urobilinogen 1+ (Normal); Urine WBC >50 /HPF (<5); Urine WBC Clump Rare /HPF (None Seen); Urine pH 6.5 (5.0-7.0)
--- NOTE | 2024-06-03 00:16 | ER ---
Nurse's Notes [facility] Name: Sil Gaytan Age: 24 yrs Sex: Female : 2000 Arrival Date: 06/02/2024 Time: 22:48 Bed 8 Private MD: Diagnosis: UTI/ Urinary tract infection, site not specified Presentation: 06/02 23:04 Chief complaint: Patient states: I have urinary frequency, burning, and pressure. It jb4 started at 530. Coronavirus screen: At this time, the client does not indicate any symptoms associated with coronavirus-19. Ebola Screen: No symptoms or risks identified at this time. Initial Sepsis Screen: Does the patient meet any 2 criteria? No. Patient's initial sepsis screen is negative. Does the patient have a suspected source of infection? No. Patient's initial sepsis screen is negative. Risk Assessment: Do you want to hurt yourself or someone else? Patient reports no desire to harm self or others. Onset of symptoms was June 02, 2024. Transition of care: patient was not received from another setting of care. 23:04 Method Of Arrival: Ambulatory jb4 23:04 Acuity: DELMAR 3 jb4 Historical: - Allergies: 23:05 Codeine; jb4 23:05 PENICILLINS; jb4 23:05 Prednisone; jb4 23:05 Vancomycin; jb4 - PMHx: 23:05 Asthma; Hypertensive disorder; jb4 - PSHx: 23:05 ; jb4 - Immunization history:: Adult Immunizations unknown. - Infectious Disease History:: Denies. - Social history:: Smoking status: Patient denies any tobacco usage or history of. Assessment: 06/03 00:25 Reassessment: Patient is alert, oriented x 3, equal unlabored respirations, skin br2 warm/dry/pink. Vital Signs: 06/02 23:04 BP 134 / 76; Pulse 92; Resp 16; Temp 98.5(O); Pulse Ox 100% on R/A; Weight 83.91 kg jb4 (R); Height 5 ft. 7 in. (R); 06/03 00:34 BP 142 / 98; Pulse 87; Resp 18; Temp 97.1; Pulse Ox 100% on R/A; br2 06/02 23:04 Body Mass Index 28.97 (83.91 kg, 170.18 cm) jb4 ED Course: 06/02 22:50 Patient arrived in ED. jj6 22:54 David Montana PA is PHCP. cp 22:54 David Shaw MD is Attending Physician. cp 23:05 Triage completed. jb4 23:05 Arm band placed on right wrist. jb4 23:07 Mamie Franco, RN is Primary Nurse. vc1 23:14 Test, Urine Sent. vc1 23:14 Urinalysis w/ reflexes Sent. vc1 Administered Medications: 06/03 00:32 Drug: Phenazopyridine PO 200 mg PO once Route: PO; br2 00:32 Drug: Trimethoprim-Sulfamethoxazole PO (160 mg-800 mg (DS) 1 tablet PO once Route: PO; br2 Outcome: 00:15 Discharge ordered by . cp 00:33 Patient left the ED. br2 Signatures: David Montana PA PA Beau Banda RN RN jb4 Selam Wilson jj6 Mamie Franoc RN RN vc1 Shireen Toure RN RN br2
--- NOTE | 2024-06-03 00:16 | EDPHYS ---
Physician Documentation [facility] Name: Sil Gaytan Age: 24 yrs Sex: Female : 2000 Arrival Date: 06/02/2024 Time: 22:48 Bed 8 Private MD: ED Physician David Shaw HPI: 06/02 23:15 This 24 yrs old Female presents to ER via Ambulatory with complaints of Urinary cp Incontinence. 23:15 The patient presents with urinary symptoms, dysuria, frequency, urgency. Onset: The cp symptoms/episode began/occurred today. Associated signs and symptoms: Pertinent positives: hematuria, Pertinent negatives: fever, vaginal bleeding, vomiting. Severity of symptoms: in the emergency department the symptoms are unchanged, despite home interventions. Historical: - Allergies: 23:05 Codeine; jb4 23:05 PENICILLINS; jb4 23:05 Prednisone; jb4 23:05 Vancomycin; jb4 - PMHx: 23:05 Asthma; Hypertensive disorder; jb4 - PSHx: 23:05 ; jb4 - Immunization history:: Adult Immunizations unknown. - Infectious Disease History:: Denies. - Social history:: Smoking status: Patient denies any tobacco usage or history of. ROS: 23:20 Constitutional: Negative for body aches, chills, fever, poor PO intake, cp 23:20 Eyes: Negative for injury, pain, redness, and discharge, cp 23:20 ENT: Negative for drainage from ear(s), ear pain, sore throat, difficulty swallowing, difficulty handling secretions, 23:20 Respiratory: Negative for cough, shortness of breath, wheezing, 23:20 Abdomen/GI: Negative for abdominal pain, nausea, vomiting, and diarrhea, 23:20 Back: Negative for pain at rest, pain with movement, 23:20 Neuro: Negative for altered mental status, headache, weakness, 23:20 All other systems are negative, Exam: 23:25 Constitutional: The patient appears in no acute distress, alert, awake, comfortable, cp non-toxic, well developed, well nourished, 23:25 Head/Face: Normocephalic, atraumatic. cp 23:25 Eyes: Periorbital structures: appear normal, Conjunctiva: normal, no exudate, no injection, Sclera: no appreciated abnormality, Lids and lashes: appear normal, bilaterally, 23:25 ENT: External ear(s): are unremarkable, Nose: is normal, Mouth: Lips: moist, Oral mucosa: moist, Posterior pharynx: Airway: no evidence of obstruction, patent, 23:25 Chest/axilla: Inspection: normal, 23:25 Cardiovascular: Rate: normal, 23:25 Respiratory: the patient does not display signs of respiratory distress, Respirations: normal, no use of accessory muscles, no retractions, labored breathing, is not present, Breath sounds: are clear throughout, no decreased breath sounds, no stridor, no wheezing, 23:25 Abdomen/GI: Inspection: abdomen appears normal, Palpation: abdomen is soft and non-tender, in all quadrants, 23:25 Back: CVA tenderness, is absent, 23:25 Neuro: Orientation: to person, place \T\ time. Mentation: is normal, Gait: is steady, at a normal pace, without difficulty, Vital Signs: 23:04 BP 134 / 76; Pulse 92; Resp 16; Temp 98.5(O); Pulse Ox 100% on R/A; Weight 83.91 kg jb4 (R); Height 5 ft. 7 in. (R); 06/03 00:34 BP 142 / 98; Pulse 87; Resp 18; Temp 97.1; Pulse Ox 100% on R/A; br2 04 23:04 Body Mass Index 28.97 (83.91 kg, 170.18 cm) jb4 MDM: 06/02 23:01 Medical Screening Exam initiated cp 06/03 00:00 Differential diagnosis: pelvic inflammatory disease, urinary tract infection, cp vaginosis, pyelonephritis, kidney stone, sepsis. 00:15 Data reviewed: vital signs, nurses notes, lab test result(s), and as a result, I will cp discharge patient. 06/02 23:08 Order name: Urinalysis w/ reflexes; Complete Time: 00:12 vc1 06/03 00:12 Interpretation: Reviewed. 06/02 23:08 Order name: Test, Urine; Complete Time: 00:12 vc1 06/03 00:15 Interpretation: Reviewed. 06/03 00:02 Order name: Urine Culture EDMS Administered Medications: 00:32 Drug: Phenazopyridine PO 200 mg PO once Route: PO; br2 00:32 Drug: Trimethoprim-Sulfamethoxazole PO (160 mg-800 mg (DS) 1 tablet PO once Route: PO; br2 Disposition: 04:52 Co-signature as Attending Physician, David Shaw MD I agree with the assessment and gem plan of care. Disposition Summary: 06/03/24 00:15 Discharge Ordered Notes: Location: Home cp Problem: new cp Symptoms: have improved cp Condition: Stable cp Diagnosis - UTI/ Urinary tract infection, site not specified cp Followup: cp - With: Private Physician - When: 2 - 3 days - Reason: Worsening of condition Discharge Instructions: - Discharge Summary Sheet cp - Urinary Tract Infection, Adult cp Forms: - Medication Reconciliation Form cp - Antibiotic Education cp - Prescription Opioid Use cp - Patient Portal Instructions cp - Leadership Thank You Letter cp Prescriptions: - Pyridium 200 mg Oral Tablet - take 1 tablet ORAL route every 8 hours for 3 days; 9 tablet; Refills: 0, cp Product Selection Permitted - Zofran 4 mg Oral tablet - take 1 tablet ORAL route every 12 hours As needed; 10 tablet; Refills: 0, cp Product Selection Permitted - Bactrim DS 800-160 mg Oral Tablet - take 1 tablet ORAL route every 12 hours for 7 days; 14 tablet; Refills: 0, cp Product Selection Permitted Signatures: Dispatcher [employer] David Ross MD MD cha Page, Corey, PA PA Beau Banda, ABDIFATAH RN jb4 Shireen Toure RN RN br2 Corrections: (The following items were deleted from the chart) 06/02 23:08 23:08 Urinalysis+U.LAB.BRZ ordered. EDMS EDMS 23:08 23:08 Test, Urine+UC.LAB.BRZ ordered. EDMS EDMS
[2024-06-03] MEDS ORDERED: SMZ./TMP. 800/160 MG TABLET ONE (00:24)
[2024-06-03] MEDS ORDERED: PHENAZOPYRIDINE 100MG TAB PO ONE (00:24)
[2024-06-03 00:39] VITALS: BP 142/98; TEMP 97.1; O2SAT 100
== END 2024-06-03 00:33 | disposition home or self-care (01) ==
LOC: ER 22:48
DX: N39.0 Urinary tract infection, site not specified (principal)
CPT/HCPCS: 81001; 81025; 87077; 87086; 87088; 87186; 99283